=== PATIENT | female | born 1950 | race Caucasian/White ===

== ENCOUNTER 2018-12-15 10:05 | Outpatient (CLI) | payer MEDICARE, SELFPAY ==
[2018-12-15 12:01] LABS: ALT 35 U/L (12-78); AST 24 U/L (15-37); Anion Gap 8.8 mmol/L (3-11); BUN 18 mg/dL (7-18); CO2 29.2 mmol/L (21.0-32.0); CREATININE 0.92 mg/dL (0.55-1.02); Calcium 9.5 mg/dL (8.5-10.1); Chloride 102 mmol/L (98-107); Cholesterol 176 mg/dL (50-200); Glucose 100 mg/dL (70-100); HDL Cholesterol 45 mg/dL (40-60); LDL CHOLESTEROL 106 mg/dL (<100); Potassium 4.7 mmol/L (3.5-5.1); Sodium 140 mmol/L (136-145); Triglyceride 138 mg/dL (30-150)
[2018-12-15 12:15] LABS: Creatine Kinase 37 U/L (26-192)
== END 2018-12-15 10:25 ==
PROVIDERS: PCP Nurse Practitioner Family; Visit Provider Nurse Practitioner Family
DX: E78.5 Hyperlipidemia, unspecified (principal); R73.01 Impaired fasting glucose; I48.0 Paroxysmal atrial fibrillation
CPT/HCPCS: 36415; 80048; 80061; 82550; 83721; 84450; 84460

== ENCOUNTER 2018-12-31 00:44 | Outpatient (CLI) | payer MEDICARE, SELFPAY ==
--- NOTE | 2018-12-31 13:08 | DI.DEXA_ITS ---
SYMPTOMS/DIAGNOSIS: OSTEOPOROSIS, M81.0 DEXA SCAN: DEXA scan was performed according to the usual protocol. The findings for left hip scanning are T score -1.7 with left femoral neck T score -2.9. The previous examination of 07/07 showed left hip T score -1.7. The lumbar spine scanning shows T score -3.0. Previous examination of 07/07 showed lumbar spine T score -2.9. The left forearm scanning shows T score -3.0. CONCLUSION: Findings consistent with osteoporosis according to the WHO criteria. Please note that the lateral vertebral scanogram shows no evidence of a vertebral compression fracture.
== END 2018-12-31 01:04 ==
PROVIDERS: PCP Nurse Practitioner Family; Visit Provider Nurse Practitioner Family
DX: M81.0 Age-related osteoporosis without current pathological fracture (principal)
CPT/HCPCS: 77080

== ENCOUNTER 2020-03-17 12:00 | Outpatient (CLI) | payer MEDICARE, MEDICAID, SELFPAY ==
--- NOTE | 2020-03-17 | DI.RAD_ITS ---
CLINICAL HISTORY: INJURY, FELL ON 03/11, T14.90xA, ? FX. COMPARISON: CHEST 2 VIEWS PA,LAT from 10/22/2013 FINDINGS: LUNGS: Clear. No pneumothorax is seen. Heart size is normal. BONES: A marker was placed over the left lower ribs in the area of the patient's pain. No displaced rib fracture is seen. No bony destructive lesion is seen. No thoracic compression fracture is seen. IMPRESSION: Negative chest and left ribs.
--- NOTE | 2020-03-17 13:00 | DI.RAD_ITS ---
EXAM: XR TIB/FIB RT CLINICAL HISTORY: INJURY, T14.90xA, FELL ON 03/11, ? FX. TECHNIQUE: 2D digital imaging was performed. COMPARISON: No exams were available for comparison FINDINGS: BONES: No acute fracture is present. No bony destructive lesion is seen. Visualized portion of knee a nd ankle joints are unremarkable. SOFT TISSUE: Normal. IMPRESSION: Unremarkable radiographs of the right tibia and fibula. DATA REPOSITORY: RADIATION DOSE DELIVERED:
== END 2020-03-17 12:20 ==
PROVIDERS: PCP Nurse Practitioner Family; Visit Provider Family Medicine
DX: M79.661 Pain in right lower leg (principal); S89.81XA Other specified injuries of right lower leg, initial encounter; Z91.81 History of falling; R07.89 Other chest pain; R07.81 Pleurodynia
CPT/HCPCS: 71046; 71100; 73590

== ENCOUNTER 2020-06-07 08:56 | Outpatient (REF) | payer MEDICARE, SELFPAY ==
[2020-06-07 21:32] LABS: Anion Gap 11.4 mmol/L (3-11); BUN 16 mg/dL (7-18); CO2 24.6 mmol/L (21.0-32.0); CREATININE 0.72 mg/dL (0.55-1.02); Calcium 9.1 mg/dL (8.5-10.1); Calculated LDL 114 mg/dL (<100); Chloride 107 mmol/L (98-107); Cholesterol 178 mg/dL (<200); Glucose 116 mg/dL (74-106); HDL Cholesterol 40 mg/dL (40-60); Potassium 4.6 mmol/L (3.5-5.1); Sodium 143 mmol/L (136-145); Triglyceride 123 mg/dL (<150)
== END 2020-06-07 09:16 ==
LOC: NCHCN 08:56
PROVIDERS: PCP Nurse Practitioner Family; Visit Provider Nurse Practitioner Family
DX: R73.03 Prediabetes (principal); E78.5 Hyperlipidemia, unspecified; E66.9 Obesity, unspecified
CPT/HCPCS: 80048; 80061

== ENCOUNTER 2020-08-02 15:02 | Outpatient (REF) | payer MEDICARE, SELFPAY, MEDICAID ==
[2020-08-02 21:40] LABS: HGB 14.4 g/dL (11.2-15.7); MCH 28.7 pg (27.0-33.0); MCV 89.8 fL (80-95); MPV 11.5 fL (8.0-11.0); Platelet Count 287 10^3/uL (130-400); RBC 5.01 10^6/uL (3.93-5.22); RDW 12.4 % (11.7-14.6); RDW-SD 40.5 fL
[2020-08-02 21:50] LABS: TSH (W/Ref FT4) 0.82 uIU/mL (0.36-3.74)
== END 2020-08-02 15:22 ==
LOC: NCHCN 15:02
PROVIDERS: PCP Nurse Practitioner Family; Visit Provider Nurse Practitioner Family
DX: E78.5 Hyperlipidemia, unspecified (principal); R73.03 Prediabetes; I48.0 Paroxysmal atrial fibrillation; R06.83 Snoring; E66.9 Obesity, unspecified
CPT/HCPCS: 85027; 84443

== ENCOUNTER 2020-08-21 03:04 | Outpatient (CLI) | payer MEDICARE, MEDICAID, SELFPAY ==
[2020-08-21 10:43] LABS: ALT 40 U/L (14-59); AST 32 U/L (15-37); Albumin 3.6 g/dL (3.4-5.0); Alkaline Phosphatase 120 U/L (46-116); Anion Gap 7.4 mmol/L (3-11); BUN 15 mg/dL (7-18); Bilirubin, Total 0.6 mg/dL (0.2-1.0); C-Reactive Protein 0.86 mg/dL (0.0-0.3); CO2 27.6 mmol/L (21.0-32.0); CREATININE 0.85 mg/dL (0.55-1.02); Chloride 103 mmol/L (98-107); PHOSPHORUS 3.7 mg/dL (2.6-4.7); Potassium 4.2 mmol/L (3.5-5.1); Sodium 138 mmol/L (136-145); Total Protein 7.3 g/dL (6.4-8.2)
[2020-08-21 11:07] LABS: Glucose 110 mg/dL (74-106)
[2020-08-21 11:18] LABS: ESR 16 mm/hr (0-30)
[2020-08-21 11:49] LABS: Vitamin D 25 Total 28.2 ng/ml (30-100)
[2020-08-21 12:57] LABS: GTT Comment See Comments
[2020-08-22 09:40] LABS: Parathyroid Hormone,Intact 45 pg/mL (19-88)
[2020-08-23 10:15] LABS: Beta-CrossLaps (B-CTx) 504 pg/mL
== END 2020-08-21 03:24 ==
PROVIDERS: PCP Nurse Practitioner Family; Visit Provider Internal Medicine Endocrinology, Diabetes & Metabolism
DX: M81.0 Age-related osteoporosis without current pathological fracture (principal); R73.03 Prediabetes
CPT/HCPCS: 36410; 80053; 82306; 82523; 82533; 85652; 82951; 83036; 83970; 84100; 86140

== ENCOUNTER 2020-10-11 02:04 | Outpatient (CLI) | payer MEDICARE, MEDICAID, SELFPAY ==
[2020-10-11 12:14] LABS: Ferritin 140 ng/mL (8-252)
== END 2020-10-11 02:24 ==
PROVIDERS: PCP Nurse Practitioner Family; Visit Provider Nurse Practitioner
DX: M25.561 Pain in right knee (principal)
CPT/HCPCS: 36415; 82728

== ENCOUNTER 2021-01-01 17:02 | Outpatient (REF) | payer MEDICARE, MEDICAID, SELFPAY ==
[2021-01-01 19:36] LABS: HCT 43.8 % (36.0-46.0); HGB 14.5 g/dL (11.2-15.7); MCH 29.7 pg (27.0-33.0); MCHC 33.1 % (32.0-36.0); MCV 89.8 fL (80-95); Platelet Count 293 10^3/uL (130-400); RBC 4.88 10^6/uL (3.93-5.22); RDW 12.2 % (11.7-14.6); RDW-SD 40.3 fL; WBC 10.81 10^3/uL (4.4-10.8)
[2021-01-01 20:22] LABS: Anion Gap 9.6 mmol/L (3-11); BUN 13 mg/dL (7-18); CO2 27.4 mmol/L (21.0-32.0); CREATININE 0.8 mg/dL (0.55-1.02); Calcium 9.5 mg/dL (8.5-10.1); Chloride 104 mmol/L (98-107); Glucose 106 mg/dL (74-106); Potassium 4.1 mmol/L (3.5-5.1); Sodium 141 mmol/L (136-145)
== END 2021-01-01 17:03 | disposition home or self-care (01) ==
LOC: NCHCN 17:02
PROVIDERS: PCP Nurse Practitioner Family; Visit Provider Nurse Practitioner Family
DX: M81.0 Age-related osteoporosis without current pathological fracture (principal); K21.9 Gastro-esophageal reflux disease without esophagitis; I48.0 Paroxysmal atrial fibrillation
CPT/HCPCS: 80048; 82306; 85027

== ENCOUNTER 2021-01-05 10:22 | Outpatient (CLI) | payer MEDICARE, MEDICAID, SELFPAY ==
[2021-01-06 11:49] LABS: COVID-19 RT-PCR UVMMC Result Negative (Negative)
== END 2021-01-05 10:23 | disposition home or self-care (01) ==
PROVIDERS: PCP Nurse Practitioner Family; Visit Provider Nurse Practitioner
DX: Z20.822 Contact with and (suspected) exposure to COVID-19 (principal); Z01.818 Encounter for other preprocedural examination
CPT/HCPCS: U0003; U0005

== ENCOUNTER 2021-01-11 00:48 | Outpatient (CLI) | payer MEDICARE, MEDICAID, SELFPAY ==
--- NOTE | 2021-01-11 08:45 | DI.NM_ITS ---
APPROVED REPORT Exam: Exercise Treadmill Patient Location: Out-Patient Room/Bed: Stress Nurse: Michelle Farmer RN Ordering Provider:NADIRA MENDOZA, Contact Number: [phone] BMI: 37.78 Baseline Rhythm: Sinus Rhythm Indications: Chest pain, associated with SOB while shoveling, h/o AFIB, on anticoag Medical History Medical History: AFib, Hyperlipidemia, asthma, obesity, smoker (former), prediabetes, COPD, vertigo Cardiac Medications: Diltiazem, eliquis, lovastatin Allergies: Metals Cardiac Risk Factors: AFib, Hyperlipidemia, asthma, obesity, prediabetes, smoker (former), COPD, fami ly hx Previous Cardiac Procedures: None Pretest Chest Pain Characteristics: None Exercise History: Sedentary Physical Disabilities: None Lung Sounds: Clear to auscultation Heart Sounds: Regular Stress Test Details Test: Exercise stress testing was performed using a Maxi protocol. Nuclear Acquisition: Rest Tc-99m/Stress Tc-99m 1 day Rest Isotope: Tc-99m Sestamibi. Dose: 11.5 Date: 01/11/2021 Injection Time: 0900 Stress Isotope: Tc-99m Sestamibi. Dose: 37.0 Date: 01/11/2021 Injection Time: 1025 HR Resting HR Supine: 74 bpm Max Heart Rate (APMHR): 152 bpm Resting HR Standin bpm Target HR (85% APMHR): 129 bpm Max HR Achieved: 143 bpm % of APMHR: 94 Recovery HR: 96 bpm HR response to stress: Normal HR response to stress BP Resting BP Supine: 140/90 mmHg Resting BP Standin/92 mmHg Max BP: 176/72 mmHg Recovery BP: 142/80 mmHg BP response to stress: Normal blood pressure response to stress. ECG Resting ECG: Sinus Rhythm Ectopy: None Stress ECG: Sinus Tachycardia ST Change: No significant ST segment changes noted Arrhythmia: PVC Recovery ECG: Sinus Rhythm Recovery ST Change: No significant ST segment changes noted Recovery Arrhythmia: Occasional PACs Clinical Reason for Termination: Dyspnea, Fatigue Stress Symptoms: Dyspnea, General Fatigue Exercise duration: 6 min14 sec Highest Stage Reached: Stage 3: 3.4 mph at 14% grade. Exercise capacity: 7.11 METs Rate Pressure Product: 32518 Stress ECG Conclusion 1. The patient exercised for 6 minutes (7 METS). Exercise was stopped due to fatigue. 2. The patient had no symptoms suggestive of ischemia during exercise. 3. There was no evidence of ischemia on ECG portion of the exam. MPI Conclusion Ejection fraction could not be calculated due to software issues. There was no evidence of ischemia on the imaging portion of the exam. Rotation of the study is affected by gating issues, this likely represents a normal SPECT stress test .
== END 2021-01-11 00:49 ==
PROVIDERS: PCP Nurse Practitioner Family; Visit Provider Nurse Practitioner Family
DX: R07.9 Chest pain, unspecified (principal); R06.02 Shortness of breath; I48.91 Unspecified atrial fibrillation; Z79.01 Long term (current) use of anticoagulants; E78.5 Hyperlipidemia, unspecified; R73.03 Prediabetes; Z87.891 Personal history of nicotine dependence
CPT/HCPCS: 78452; 93016; 93018; 93017

== ENCOUNTER → 2021-01-15 12:13 | Outpatient (BNVA) | payer MEDICARE, MEDICAID, SELFPAY | PROVIDERS: PCP Nurse Practitioner Family; Referring Provider Nurse Practitioner Family; Visit Provider Psychiatry & Neurology Neurology | DX: F45.8 Other somatoform disorders (principal) | CPT/HCPCS: 99203 ==

== ENCOUNTER → 2021-01-18 13:28 | Outpatient (BNVA) | payer MEDICARE, MEDICAID, SELFPAY | PROVIDERS: PCP Nurse Practitioner Family; Referring Provider Nurse Practitioner Family; Visit Provider Physical Therapy Assistant | DX: Z12.11 Encounter for screening for malignant neoplasm of colon (principal) ==

== ENCOUNTER 2021-01-29 11:12 | Day surgery (SDC) | payer MEDICARE, MEDICAID, SELFPAY ==
--- NOTE | 2021-01-29 06:43 | W.COLOREPORT ---
Date of service: 01/29/21 Time of Service: 12:37 Colonoscopy Report Date of procedure: 01/29/21 Pre-op diagnosis general: Colon Cancer Screening Post-op diagnosis procedure note: other (polyp, mild diverticulosis) Procedure: Colonoscopy with polypectomy Surgeon: Devi Alegria Anesthesia proc note operative: other (General/ASA 2/Lana Caldwell, PINEDA) Estimated blood loss (mL): 3 Pathology: other (Ascending polyp) Complications: None Disposition: same day Indications: The patient is here for Colonoscopy pre-op. Her last screening was in 2009 and was unremarkable. She has no family history of colon cancer. She has not had any bowel habit changes , however has noted rare, intermittent blood per rectum. -Discussed colonoscopy bowel prep as well as the procedure. Discussed possible complications of the procedure to include bleeding, pain, perforation, missed small lesion/polyp, sore throat, aspiration and adverse reaction to the medications. Questions were answered to patient?s satisfaction. No guarantees were implied or given. Prep: Miralax/Dulcolax Procedure Start Time: 12:37 Procedure End Time: 13:02 Retraction Time: 15 minutes Findings: One small polyp and mild diverticulosis of the ascending polyp Procedure Description: After informed consent was obtained the patient was taken to the procedure room and placed in a left decubitous position. Monitors were applied and a time out was done. The patients name, date of , procedure, allergies to medications and metal in their body was reviewed. The patient was then sedated. Once sedated and comfortable a rectal exam was done. External exam was normal. Internal exam revealed a normal sphincter tone and no palpable masses. The scope was then introduced and retro-flexed. Grade 1 internal hemorrhoids were identified. There were no polyps or masses identified on retro-flexion. The scope was then advanced to the cecum without difficulty. The ileocecal vlave and appendiceal orifice were identified. The prep was goof. The scope was then slowly retracted over 15 minutes back into the rectum. Polyps were removed with cold forceps in the ascending colon. There was mild diverticulosis noted in the sigmoid colon. The scope was removed and the patient was woken up and taken back to Same day surgery in stable condition. The patient tolerated the procedure well and there were no immediate complications. Follow up: The patient should follow up in 5 years unless they develop changes in bowel habits or other new gastrointestinal complaints.
--- NOTE | 2021-01-29 06:44 | W.PM.DSUDISC ---
Discharge Plan Disposition Patient Disposition: HOME Condition: Good Discharge Details Reason For Visit: Colonoscopy Attending Provider: Devi Alegria Primary Care Provider: Dorita Zimmerman Home Meds and New Rx's Prescriptions: Continued DILTIAZEM ER 360 MG TAB.ER.24H 360 mg PO DAILY Qty: 90 RF: 4 Eliquis 5 mg tablet 5 mg PO BID Qty: 180 RF: 3 albuterol sulfate [ProAir HFA] 90 mcg/actuation HFA aerosol inhaler 2 puff inhalation Q6H PRNRF: 0 cholecalciferol (vitamin D3) 25 mcg (1,000 unit) capsule 25 mcg PO DAILY RF: 0 lovastatin 40 mg tablet 40 mg PO DAILY RF: 0 meclizine 25 mg tablet 25 mg PO TID PRNRF: 0 Discontinued polyethylene glycol 3350 17 gram/dose powder 238 g PO ONCE Qty: 238 RF: 0 bisacodyl [Dulcolax (bisacodyl)] 5 mg tablet,delayed release (DR/EC) 5 mg PO ONCE Qty: 4 RF: 0 Discharge Instructions Instructions: Diverticulosis (DC) Additional Instructions: Findings: one small polyp mild diverticulosis Follow up: 5 years Please call if you develop: fevers >101.5 Nausea or Vomiting Abdominal pain that is not transient DAY SURGERY UNIT POST ENDOSCOPY INSTRUCTIONS 1. Because there will be medication in your system for the next 24 hours, you may feel a little sleepy. Your coordination will be affected. Therefore: a. Do not drive or operate dangerous equipment for 24 hours. b. Do not drink alcohol beverages for 24 hours (not even beer). c. Plan to go home and rest for the day. 2. Generally there are no restrictions on your activity after a day or so has gone by, but you may feel a bit fatigued for a few days. 3 After you arrive home you may have a light meal and return to a normal diet as you can tolerate it without feeling sick to your stomach. 4. After surgery, you may feel pain or discomfort. This should be only transient, but if it persists please contact your doctor. 5. If there are any questions regarding the findings of your procedure, please feel free to contact your doctor. 6. If you are unable to contact your doctor with a problem, contact the hospital at [phone]. 7. Continue all your regular medications unless directed otherwise. I understand the above instructions and have no questions. Signature of Patient or Responsible Adult Escort Date/Time Name of Responsible Adult Escort Signature of Nurse Date/Time Activity:: Activity as Tolerated Diet:: High Fiber Discharge Orders Discharge Orders: Discharge Order (Routine); Ordered 01/29/21 Ordered By: Devi Alegria
[2021-01-29 11:15] VITALS: BP 136/83; PULSE 87; RESP 19; TEMP 36.6; O2SAT 93
[2021-01-29] MEDS: Lactated Ringers 1,000 ML 80 ML IV (11:45)
--- NOTE | 2021-01-29 12:51 | BOWEL_PTH ---
PATIENT: Lucero Arthur LOC: [facility] U#:[id number] AGE/SX: 70/F ROOM: RE01/29/[address]: Devi Alegria MD : 1950 BED: DIS: 01/29/2021 SPEC #: [id number] RECD: 01/29/21 17:18 STATUS: FAIZAN REQ #: [id number] BREE: 01/29/21 12:[address]: Devi Alegria DEPT: Surgical Specimen RECD BY: Klaudia Kwan ENTERED: 01/29/21 17:18 SP TYPE: Bowel OTHR DR: Dorita Zimmerman Tissues: 1 - BIOPSY BOWEL Procedures: GROSS AND MICRO LEVEL 4 Comments: [id number]
[2021-01-29 13:40] VITALS: BP 132/64; PULSE 75; RESP 18; TEMP 36.6; O2SAT 95
== END 2021-01-29 14:04 | disposition home or self-care (01) ==
LOC: SUR 11:12
PROVIDERS: PCP Nurse Practitioner Family; Visit Provider Surgery
PROC: 0DJD8ZZ Inspection of Lower Intestinal Tract, Via Natural or Artificial Opening Endoscopic (ICD-10-PCS; CPT 45378; principal; 2021-01-29 11:30)
DX: Z12.11 Encounter for screening for malignant neoplasm of colon (principal); D12.2 Benign neoplasm of ascending colon; K57.30 Diverticulosis of large intestine without perforation or abscess without bleeding
CPT/HCPCS: 45380; 88305; J2001

== ENCOUNTER 2021-02-15 10:53 | Emergency (ER) | payer MEDICARE, MEDICAID, SELFPAY ==
[2021-02-15] VITALS (17 sets, daily range): BP systolic 110–125; BP diastolic 47–55; PULSE 50–62; RESP 16–22; TEMP 36.6–36.8; O2SAT 94–97
--- NOTE | 2021-02-15 10:45 | RT.EKG_ITS ---
APPROVED REPORT Exam: Resting ECG Patient Location: E HR:58 bpm ECG Measurements Heart Rate 58 AXIS HI 177 P 46 QRSd 71 QRS -22 QT 398 T 48 QTc 393 Conclusion Sinus bradycardia...rate< 60 Low voltage, precordial leads...precordial leads <1.0mV non-diagnostic EKG I have reviewed and interpreted ECG and agree with software generated interpretation.
--- NOTE | 2021-02-15 11:00 | DI.RAD_ITS ---
EXAM: XR PORTABLE CHEST AP CLINICAL HISTORY: afib. TECHNIQUE: 2D digital imaging was performed. COMPARISON: CR XR RIBS LT W PA LAT CHEST from 03/17/2020 FINDINGS: Heart size is normal. The mediastinum is not widened. Lungs are clear. No infiltrates nor obvious pleural effusions. Chest leads in place. IMPRESSION: No acute pulmonary findings on this single AP portable view of the chest.No significant change compar ed to February 2020. DATA REPOSITORY: RADIATION DOSE DELIVERED: All CT scans at this facility use at least one of these dose optimization techniques: automated exposure control; mA and/or kV adjustment per patient size (includes targeted e xams where dose is matched to clinical indication); or iterative reconstruction.
--- OUTSIDE RECORDS SUMMARY | 2021-02-15 11:06 | XMS_ITS ---
:1950 Author Care Team Providers Name Role Phone NADIRA MENDOZA APRN Primary Care Provider [phone] Allergies Code Code System Name Reaction Severity Status Onset Contact Metal ? ? Active ? Agent Sulfa ? ? Active ? (Sulfonamide Antibiotics) Medications Name Status Start Date Stop Date ? ? calcium Active ? Not available diltiazem CD 360 mg capsule,extended release 24 hr Active ? Not available Take 1 capsule every day by oral route. Eliquis 5 mg tablet Active ? Not availabl e Take 1 tablet twice a day by oral route. fluticasone propionate 50 mcg/actuation nasal spray,suspension A ctive ? Not available Use two sprays each nostril QHS lovastatin 20 mg tablet Active ? Not avai lable Take 2 tablets every day by oral route. meclizine 25 mg tablet Active ? Not avail able Take 1 tablet 3 times a day by oral route. Proair Digihaler 90 mcg/actuation aerosol powder breath act, sen sor Active ? Not available Inhale 2 puffs every 4 hours by inhalation route. Vitamin D Active ? Not available zolpidem 5 mg tablet Active ? Not availab le take 1 PO night of sleep study if needed Problems Name Status Onset Date Source ? Hyperlipidemia Active 09/14/2020 ? Obesity Active 09/14/2020 ? Atrial Fibrillation Active 09/14/2020 ? Gastroesophageal Reflux Disease Active 09/14/2020 ? Diverticular Disease Active 09/14/2020 ? Atrophic Vaginitis Active 09/14/2020 ? Eczema Active 09/14/2020 ? Psoriasis Active 09/14/2020 ? Low Back Pain Active 09/14/2020 ? Osteoporosis Active 09/14/2020 ? Vertigo Active 09/14/2020 ? Snoring Active 09/14/2020 ? Prediabetes Active 09/14/2020 ? Abnormal Findings on Diagnostic Imaging of Active 09/14 ? Breast Nitrazine Yellow Test for Detection of Active 0 ? Rupture of Amniotic Membrane Positive Ex-smoker Active 09/14/2020 ? Insomnia Active 10/03/2020 ? Restless Legs Active 10/03/2020 ? Chronic Rhinitis Active 10/03/2020 ? Obstructive Sleep Apnea Syndrome Active ? ? Procedures None recorded. Results Lab Results None recorded. Past Encounters 02/15/2021 Obstructive Sleep Apnea Syndrome; Restle ss Legs; Atrial Fibrillation Cyndi Easley IN STORE MARKETER: [address] [place] [phone], Ph. 11/30/2020 Obstructive Sleep Apnea Syndrome; Chroni c Rhinitis Cyndi Easley IN STORE MARKETER: [address] [place] [phone], Ph. 10/03/2020 Snoring; Insomnia; Restless Legs; Chroni c Rhinitis; Pain in Right Knee Cyndi Easley IN STORE MARKETER: [address] [place] [phone], Ph. Social History Tobacco Smoking Status Former Smoker Notes: quite 2 008 Vaccine List None recorded. Plan of Care Reminders Provider Appointments None ? ? recorded. Lab None ? ? recorded. Referral None ? ? recorded. Procedures None ? ? recorded. Surgeries None ? ? recorded. Imaging None ? ? recorded. Vitals 02/15/2021 10:30AM Office 30 Height Weight BMI Blood Pressure 149.86 cm 95.25 kg 42.4 kg/m2 155/68 mm[Hg] 11/30/2020 09:30AM Office 30 Height Weight BMI Blood Pressure 149.86 cm 90.72 kg 40.4 kg/m2 122/70 mm[Hg] 10/03/2020 12:30PM New Patient 45 Height Weight BMI Blood Pressure 149.86 cm 90.9 kg 40.5 kg/m2 120/80 mm[Hg]
--- OUTSIDE RECORDS SUMMARY | 2021-02-15 11:06 | XMS_ITS | Encounter Summary ---
:1950 Author Care Team Providers Name Role Phone Dorita Zimmerman RICHARD Primary Care Provider [phone] Reason for Visit None recorded. Assessment and Plan 1. Obstructive sleep apnea syndr ome CHRISTOPHER with an AHI of 41.1/hr. Brandie palacio recently started on CPAP 8-18 cm. She has excellent compliance and reduction in AHI. She has significant improvement in sleep quality, nocturia and daytime somn olence and continued use of CPAP is fela mmended. Her titration recommended CPAP 6-12 cm and there was no residual hypoxemia noted on CPAP. Given she is doing well on current pressure settings, I am not making any changes today. She is encoura ged to keep up with the routine maintenance of the machine and to clean and replace parts as indicated. Drowsy driving precautions were reviewed. I provided greater than 30 minutes in e care of this patient, more than half the time was spent in [id number] counseling. 2. Restless legs These have resolved since star ting CPAP. 3. Atrial fibrillation She is having chest discomfort and feeling dyspneic and dizzy since waking up today. [facility]. I recommended she go to the ER fo r an evaluation. 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 Discussion Note: None recorded.Patient educational handouts: No information available. Plan of Care Reminders Provider Appointments Office 08/21/2021 Florencio Easley, 2:00PM SECURITY SYSTEM ADMINISTRATOR Lab None ? ? recorded. Referral None ? ? recorded. Procedures None ? ? recorded. Surgeries None ? ? recorded. Imaging None ? ? recorded. Medications Name Start Date ? ? calcium ? diltiazem CD 360 mg capsule,extended release 24 hr ? Take 1 capsule every day by oral route. Eliquis 5 mg tablet ? Take 1 tablet twice a day by oral route. fluticasone propionate 50 mcg/actuation nasal spray,sibley spension ? Use two sprays each nostril QHS lovastatin 20 mg tablet ? Take 2 tablets every day by oral route. meclizine 25 mg tablet ? Take 1 tablet 3 times a day by oral route. Proair Digihaler 90 mcg/actuation aerosol powder breat h act, sensor ? Inhale 2 puffs every 4 hours by inhalation route. Vitamin D ? zolpidem 5 mg tablet ? take 1 PO night of sleep study if needed Medications Administered None recorded. Vitals Height Weight BMI Blood Pressure 4 ft 11 in 210 lbs 42.4 kg/m2 155/68 mm[Hg] Results Lab Results None recorded. Allergies Code Code System Name Reaction Severity Onset Contact Metal ? ? ? Agent Sulfa ? ? ? (Sulfonamide Antibiotics) Problems Name Status Onset Date Source ? [...] Syndrome Active ? ? Procedures None recorded. Vaccine List None recorded. Social History Tobacco Smoking Status Former Smoker Notes: quite 2 008 Alcohol intake None Notes: quite 15 y ears ago Live alone or with others? with others Animal exposure? Y Notes: 3 cats Caffeine intake Occasional Notes: 2 cups of coffee a day Functional Status Unknown. Past Encounters 02/15/2021 Obstructive Sleep Apnea Syndrome; Restle ss Legs; Atrial Fibrillation Cyndi Easley SECURITY SYSTEM ADMINISTRATOR: [address] [place] [phone], Ph. History of Present Illness Note: <p>[facility] has a visit for CHRISTOPHER follow-up. She checked in 12 minutes late for her ap pointment.</p><p>
</p><p>Lucero was seen by me on 11/30/20. She has a medical history to include PAF, HLD, GERD, obesity, psoriasis, diverticular disease, pre-DM, vertigo and osteoporosis. Labs 08/21/20 CRP 0.86, CMP glucose 110, alk phos 120. 08/03/20 CBC WBC 11. She noted symptoms of loud snoring, witnessed apneas, nocturnal gasping, frequent nocturnal heartburn, nocturia, sleep fragmentation, and daytime sleepiness (ESS 10).</p><p>Polysomnogram was completed on {{DATE 10/28/2020}} (BMI 40.39) . Sleep efficiency was {{63# 80}}%, AHI {{41.4# NUMBER}}/hr, RDI {{55.7# NUMBER}}/hr, REM AHI {{61.1# NUMBER}}/hr, REM RDI {{63.2# NUMBER}}/hr, supine AHI {{69# NUMBER}}/hr, right lateral AHI {{15# NUMBER}}/hr, left lateral AHI {{56# NUMBER}}/hr, sp02 satya {{67# NUMBER}}%, {{22# NUMBER}} minutes were spent at a saturation <88%, arousal index {{52# NUMBER}}/hr, PLMi {{3.3# NUMBER}}/hr, PLM arousal index {{1# NUMBER}}/hr. EKG showed {{NSR*}}. She took Ambien 5 mg for the study. Last visit I ordered CPAP 8-18 cm and a titration.</p><p>Titration01/10/21 (BMI 40.39), sleep efficiency 54%, CPAP titrated from 8 to 11 cm, CPAP 8 cm was successful in supine but NOT supine REM sleep, arousal index 24/hr, PLMi 25.3/hr, PLMai 7.2/hr. She was awake from 10:50 pm to 2:28 am. CPAP 6-12 cm recommended.</p><p>
</p><p>Lucero tells me things are going very good with her CPAP. She is using a nasal mask and tolerates it well. She has been sleeping longer and more soundly since starting on CPAP. She is feeling much rested during the day since starting CPAP. and urinates much less at night (now 0-1/night). The air pressurefeels perfect.</p><p>She says she has not even been bothered by her RLS since startingCPAP, they seem to be gone.</p><p>She says she is in a-fib now and feeling short of breath due to this. She said she has not been taking her diltiazem because she forgot to take it a couple of nights ago.</p><p>
</p><p>ESS today 06/16</p><p>
</p><p>COMPLIANCE REVIEW: {{01/15/21-02/13/21# DATES}}, Used {{29# 25 30}}/30 days, average use {{6# 5 6}} hours {{23# number}} minutes a night, mean pressure {{9.2# 8 9}}cm, 90 th percentile pressure {{11.1# 9 10}}cm, time in large air leak {{0# 5 10}} minutes, AHI {{1.4# 1 2}}/hour.</p>Review of Systems: ROS as noted in the HPI Review of Systems ? Notes: <p>dyspnea (she feels this w ay when in a-fib)</p> Physical Exam ? Notes: <p>General: A&O, well groome d {{over weight obese * morbidly obese normal weight thin}}.
HEAD: no rmocephalic & atraumatic.
EYES: non icteric.
LUNGS: CTA all f ields. Good air movement.
CARDIO: RRR without murmur, gallop or thrill.
NEURO: A&O. Normal gait.
PSYCH: Normal mood and affect.
CUTANEOUS: no overt lesions or rashes</p>
--- OUTSIDE RECORDS SUMMARY | 2021-02-15 11:06 | XMS_ITS | Encounter Summary ---
:1950 Author Care Team Providers Name Role Phone Dorita Zimmerman APRN Primary Care Provider [phone] Reason for Visit None recorded. Assessment and Plan 1. Obstructive sleep apnea syndr ome CHRISTOPHER with an AHI of 41.1/hr. Sh e had marginal hypoxemia between scored events. I discussed treatment options to include oral appliance, ENT surgery and CPAP therapy and the advantages and disad vantages of each. CPAP is the recommende d treatment given the severity of her CHRISTOPHER. CPAP 8-18cm is ordered. I discussed different mask options and the importance of finding the mask that will work for he r within the first 30 days. I discussed how to adjust humidity for dryness/congestion and that the goal will be to use nightly for her total sleep time. I covered insurance compliance requirements and [facility]'s mask exchange policy. She will have a titration study for fine tuning of therapy and to ensure adequate oxygenation on CPAP therapy. She is made aware she will need a Covid test prior to her st udy. She declined Ambien for the second study because she did not find it helpful for the PSG. I will see her back between 31-90 days after starting CPAP and she is encouraged to call me sooner if she i s having any difficulties tolerating CPA P. Drowsy driving precautions were reviewed. I provided greater than 30 minutes in e care of this patient, more than half the time was spent in [id number] counseling. ? CPAP machine ? CPAP titration study ? SARS CoV 2 RNA (COVID-19), QL, wax coating machine tender-PCR, respiratory specimen 2. Chronic rhinitis Lucero tells me that the Allyn abbott onase has been a miracle, she no longer has chronic sneezing and runny nose. She is very pleased with the results. Discussion Note: None recorded.Patient educational handouts: No information available. Plan of Care Reminders Provider Appointments Office 30 Florencio Easley NP 08/21/2021 2:00PM Lab SARS CoV 2 RNA [facility] (COVID-19), QL, wax coating machine tender-PCR, 11/30/2020 Respiratory Specimen Referral None recorded. ? ? Procedures None recorded. ? ? Surgeries None recorded. ? ? Imaging None recorded. ? ? Medications Name Start Date ? ? calcium [...] BMI Blood Pressure 4 ft 11 in 200 lbs 40.4 kg/m2 122/70 mm[Hg] Results Lab Results None recorded. Allergies [...] a day Functional Status Unknown. Past Encounters 11/30/2020 Obstructive Sleep Apnea Syndrome; Chroni c Rhinitis Cyndi Easley, COBOL APPLICATION DEVELOPER: [address] [place] [phone], Ph. History of Present Illness Note: <p>Lucero Doshi has a visit for PSG results.</p><p>
</p><p>Lucero was seen by me on 10/03/20. She has a medical history to include PAF, HLD, GERD, obesity, psoriasis, diverticular disease, pre-DM, vertigo and osteoporosis. Labs 08/21/20 CRP 0.86, CMP glucose 110, alk phos 120. 08/03/20 CBC WBC 11. She noted symptoms of loud snoring, witnessed apneas, nocturnal gasping, frequent nocturnal heartburn, nocturia, sleep fragmentation, and daytime sleepiness (ESS 10).</p><p>Polysomnogram was completed on {{DATE 10/28/2020}} (BMI 40.39) and I reviewed the results with {{him her*}} in detail today. Sleep efficiency was {{63# 80}}%, AHI {{41.4# [...] She took Ambien 5 mg for the study.</p><p>
</p><p>Lucero tells me she still has all above symptoms and no new sleep complaints today. She says her sleep the night of the study was similar when compared to a typical night at home.</p><p>Lucero tells me that the Flonase has been a miracle, she no longer has chronic sneezing and runny nose.</p>Review of Systems: ROS as noted in the HPI Review of Systems None recorded. Physical Exam ? Notes: <p>General: A&O, well groome d {{over weight obese * morbidly obese normal weight thin}}.
HEAD: no rmocephalic & atraumatic.
EYES: non icteric.
LUNGS: CTA all f ields. Good air movement.
CARDIO: RRR without murmur, gallop or thrill.
NEURO: A&O. Normal gait.
PSYCH: Normal mood and affect.
CUTANEOUS: no overt lesions or rashes</p>
--- OUTSIDE RECORDS SUMMARY | 2021-02-15 11:06 | XMS_ITS ---
:1950 Author Care Team Providers Name Role Phone NADIRA MENDOZA Primary Care Provider [phone] NADIRA MENDOZA Referring Provider [phone] Allergies Code Code System Name Reaction Severity Status Onset 4850 RxNorm Glucose Nausea Mild to Active 07/31/2020 Moderate Sulfa ? ? Active ? (Sulfonamide Antibiotics) Notes: Metals Medications Name Status Start Date Stop Date ? ? alendronate 70 mg tablet Active ? Not aziza ilable Take 1 tablet every week by oral route for 28 days. Calcium 600 Active ? Not available Take one daily. Cardizem CD 360 mg capsule,extended release Active ? Not available Take 1 capsule every day by oral route. cholecalciferol (vitamin D3) 25 mcg (1,000 unit) tablet Active ? Not available Take 1 tablet every day by oral route. Eliquis 5 mg tablet Active ? Not availabl e Take 1 tablet twice a day by oral route. lovastatin 20 mg tablet Active ? Not avai lable Take 1 tablet every day by oral route at bedtime. meclizine 25 mg tablet Active ? Not avail able Take 1 tablet every 6 hours by oral route as needed. ProAir HFA 90 mcg/actuation aerosol inhaler Active ? Not available Inhale 2 puffs every 6 hours by inhalation route as needed. Problems Name Status Onset Date Source ? Hyperlipidemia Active ? ? Dyslipidemia Active ? ? Obesity Active ? ? Paroxysmal Atrial Fibrillation Active ? ? Gastroesophageal Reflux Disease Active ? ? Diverticulitis Active ? ? Atrophic Vaginitis Active ? ? Eczema Active ? ? Psoriasis Active ? ? Pain in Wrist Active ? ? Low Back Pain Active ? ? Osteoporosis Active ? ? Vertigo Active ? ? Prediabetes Active ? ? Mammography Abnormal Active ? ? Atypical Squamous Cells of Undetermined Significance Active ? ? on Cervical Papanicolaou Smear Pain in Right Foot Active ? ? Generalized Rash Active ? ? Notes: Granuloma Procedures None recorded. Results Lab Results Date Name Specimen Result Interpretation Description Value Range Status Address ? 08/21/2020 CMP, Serum ? No observation ? ? ? [facility] or Plasma recorded. [facility]: [address], [place] Past Encounters 10/24/2020 Osteoporosis; Prediabetes Bartolome Barajas MD-FACE: [address], [place] [address], Ph. 08/16/2020 Osteoporosis; Prediabetes Bartolome Barajas MD-FACE: [address] [place] [address], Ph. Social History Tobacco Smoking Status Former Smoker Notes: Quit 10 02 Vaccine List None recorded. Plan of Care Patient Goals Lower risk of Fracture Slow progression to Diabetes Mellitus Lower risk of Fracture Patient Instructions Still do not have C omplete COpies of DETAILED DEXA (BONE DENSITY ) reports No additional Tests if Needed now. Go for tests fasting , water only for 8 hours one week before next visit. we discussed bone density in detail. blair ure of metabolic bone disease. risks #1 -------Counseled healthy eating, calc ium rich foods yogurt, cheese, almonds, spinash other leafy green veg. HEALTHY EATING HABITS ----Limited Carbohydrate: a) Limit Bread, Noodles, Pasta, Potato, Rice and other high carbohydrate foods. 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 #3 Assistant Executive Housekeeper increase Vitamin D 2000 units daily. #4 Do not recommend calcium supplements #5 REview BONE DENSITY TREATMENT OPTIONS: 1) ANTIRESORPTIVE MEDS (blocks bone reso rption or bone breakdown a) *Bisphophonates (ORAL) Alendronate 7 0 mg weekly, ------- must swallow with [address] on empty stomach, remain sitting, standing, walking for sixty minutes after dose. main side effect is GI irritation. Usually treat five year, then drug holida y for one year or more. Resume if eviden ce of increasing Bone Resorption. *RECOMMEND ALENDRONATE 70 mg take one t ablet once each week as ABOVE. b) Bisphophonates (Intravvenous) Zolo ndrate (RECLAST) 5 mg yearly for three years. then drug holiday for one year or more. Resume if evidence of increasing Bone Resorption. Side effects can be achy b ones for days or week after infusion, lo w serum calcium will consider RECLAST if you have tr ouble with ALendronate. c) Prolia injection every six months. N ew class of drug prefer to use for those who do not tolerate bisphosphonates. THIRD CHoice 2) ANABOLIC MEDS ( Stimulates Bone Forma tion) a) PTH Hormone Analog: Teriparatide (Fo rteo) Daily Injection with Pen device. Also Tymlos, Abaloparatide (TYMLOS) Daily injection for two years. Or b ) Sclerostin inhibitor agent Romosozu mab (EVENITY) two injections (105 mg each) once monthly for 12 months. ---these drugs stimulate bone formation. Preferred for patients with markedly low bone density and/or multiple fractures. Usually treat for TWO YEARS of PTH Hormone Analog or 12 months of the Sclerostin Inhibitor then switch to Bisphosphonate Lock in gains made with Forteo, Tymlos, Evenity. PREVENT DIABETES: #1 eat less less junk food, much less carbo, especi ally Pasta, Bread, Potato, RIce, #2 move more walk -gradually increase -- avoid hills . be careful. Dont fall . First need tests done fasting at [facility] Second Need Complete COpies of DETAILED DEXA (BONE DENSITY ) reports THIRD May do additional Tests if Needed. we discussed bone density in detail. blair ure of metabolic bone disease. risks counseled healthy eating, calcium rich f oods yogurt, cheese, almonds, spinash other leafy green veg. sales counselor exercise: MOVE eg walking, 5 day LIFT 1-3# Upper body 2 days STRETCH neck to ankles Assistant Executive Housekeeper Vitamin D 1000 units daily. Do not recommend calcium supplements REview BONE DENSITY TREATMENT OPTIONS: 1) ANTIRESORPTIVE MEDS (blocks bone reso rption or bone breakdown a) *Bisphophonates (ORAL) Alendronate 7 0 mg weekly, Residronate 150 mg weekly preferred must swallow with 12 oz plain water on empty stomach, remain sitting, standing, walking for sixty minutes after dose. main side effect is GI irritation. Usually treat five year, then drug holiday for o ne year or more. Resume if evidence of i ncreasing Bone Resorption. * Will CONSIDER ALENDRONATE OR Residron ate. b) Bisphophonates (Intravvenous) Zolo ndrate (RECLAST) 5 mg yearly for three years. then drug holiday for one year or more. Resume if evidence of increasing Bone Resorption. Side effects can be achy b ones for days or week after infusion, lo w serum calcium will CONSIDER RECLAST c) Prolia injection every six months. N ew class of drug prefer to use for those who do not tolerate bisphosphonates. 2) ANABOLIC MEDS ( Stimulates Bone Forma tion) 1) PTH Hormone Analog: Forteo Daily Inj ection with Pen device. Also Tymlos, Daily injection these drugs stimulate bone formation. P referred for patients with markedly low bone density and/or multiple fractures. Usually treat for TWO YEARS, then switch to Bisphosphonate Lock in gains made with Forteo, Tymlos. Reminders Provider Appointments None recorded. ? ? Lab None recorded. ? ? Referral None recorded. ? ? Procedures None recorded. ? ? Surgeries None recorded. ? ? Imaging None recorded. ? ? Vitals 10/24/2020 03:30PM ENDOCRINOLOGY FOLLOW UP 30 Height Weight BMI Blood Pressure 149.86 cm 92.19 kg 41.1 kg/m2 118/76 mm[Hg] 08/16/2020 11:00AM ENDOCRINOLOGY NEW PATIENT 60 Height Weight BMI Blood Pressure 149.86 cm 93.17 kg 41.5 kg/m2 110/68 mm[Hg]
[2021-02-15 11:13] LABS: Abs Immature Grans 0.05 10^3/uL (0.0-0.06); Absolute Eosinophil Count 0.33 10^3/uL (0.0-0.7); Absolute Lymphocyte Count 3.24 10^3/uL (1.2-3.4); Basophils % 0.4; Eosinophils % 2.3; HCT 45.3 % (36.0-46.0); Immature Grans % 0.4; Lymphocytes % 22.7; MCH 29.4 pg (27.0-33.0); MCHC 33.1 % (32.0-36.0); MCV 88.8 fL (80-95); MPV 10.4 fL (8.0-11.0); Monocytes % 6.3; Neutrophils % 67.9; Nucleated RBC 0 %; Platelet Count 286 10^3/uL (130-400); RDW 12.1 % (11.7-14.6); RDW-SD 39.7 fL; WBC 14.26 10^3/uL (4.4-10.8)
[2021-02-15 11:19] LABS: Absolute Basophil Count 0.06 10^3/uL (0.0-0.2); Absolute Neutrophil Count 9.68 10^3/uL (1.2-6.7)
--- NOTE | 2021-02-15 11:24 | ED.GENADUL_ITS ---
Discharge Plan Disposition Patient Disposition: HOME Condition: Good Discharge Details Clinical Impression: Heart palpitations, Hypomagnesemia, Acute dyspnea Primary Care Provider: Dorita Zimmerman ED Provider: Klaudia Cordero Home Meds and New Rx's Prescriptions: New magnesium gluconate 30 mg (550 mg) tablet 30 mg PO DAILY Qty: 10 RF: 0 No Action DILTIAZEM ER 360 MG TAB.ER.24H 360 mg PO DAILY Qty: 90 RF: 4 Eliquis 5 mg tablet 5 mg PO BID Qty: 180 RF: 3 albuterol sulfate [ProAir HFA] 90 mcg/actuation HFA aerosol inhaler 2 puff inhalation Q6H PRNRF: 0 cholecalciferol (vitamin D3) 25 mcg (1,000 unit) capsule 25 mcg PO DAILY RF: 0 lovastatin 40 mg tablet 40 mg PO DAILY RF: 0 meclizine 25 mg tablet 25 mg PO TID PRNRF: 0 Discharge Instructions Instructions: Heart Palpitations (ED), Dyspnea (ED), Hypomagnesemia (ED) Additional Instructions: Please follow-up with your primary care physician, you are leaving against our recommendation prior to your repeat heart enzymes or troponin level I recommend you see your doctor in close outpatient follow-up Take your Eliquis as prescribed Take your diltiazem as prescribed Take the magnesium as recommended Return earlier should you have new, worsening, or persistent complaints Medical Decision Making Patient is alert, oriented, of decisional capacity, she had negative troponin and EKG does not show evidence of atrial fibrillation, she is in a normal sinus rhythm throughout this evaluation, in no distress, her blood pressure is normalized She is chronically anticoagulated with a and of neurologically intact I did recommend repeat troponin given her symptoms earlier today and she has declined Again she is alert, oriented, of decisional capacity and is aware that she is leaving against our medical recommendation we have like to perform another troponin prior to discharge home She will follow up with her primary care physician, she will take your medications exactly as prescribed She will continue to be sure to take her Eliquis this evening in addition to her Cardizem BNP negative, low suspicion for pulmonary embolism, patient's symptoms are identical to her prior atrial fibrillation exacerbation Discharged home in stable condition with stable vitals Chest x-ray negative per my review and radiology interpretation Differential Diagnosis Differential Diagnosis: Atrial fibrillation, CHF, pulmonary embolism, pneumonia Medical Records Medical records reviewed: Yes I reviewed the patient's medical records. Lab Data Lab results reviewed: Yes I reviewed the patient's lab results. HPI This 71-year-old female presents with report of palpitations and shortness of breath just prior to arrival, approximately an hour. She states that she was in atrial fibrillation. She states she does have a history of paroxysmal atrial fibrillation feels like this lasted approximately 30 minutes and has since resolved. She is otherwise symptomatically improved at this time. She denies any current chest pain or shortness of breath. She denies any calf pain or swelling. She states that this occurred secondary to missing a dose of her diltiazem 2 days ago. She took 2 doses yesterday for compensation. She denies any fever or chills. She denies any shortness of breath. She felt quite well until she felt her atrial fibrillation. She took her Eliquis today as prescribed. General Date/Time Provider Initiated Documentation: 02/15/21 10:57 . Related Data Home Medications Medication Instructions Recorded Confirmed apixaban 5 mg tablet 5 mg PO BID #180 tab-cap 11/18/18 02/15/21 albuterol sulfate 90 mcg/actuation 2 puff INHALATION Q6H PRN 11/10/20 02/15/21 aerosol inhaler cholecalciferol (vitamin D3) 25 25 mcg PO DAILY 11/10/20 02/15/21 mcg (1,000 unit) capsule lovastatin 40 mg tablet 40 mg PO DAILY 11/10/20 02/15/21 meclizine 25 mg tablet 25 mg PO TID PRN 01/15/21 02/15/21 magnesium gluconate 30 mg PO DAILY #10 tab 02/15/21 Previous Rx's Medication Instructions Recorded apixaban 5 mg tablet 5 mg PO BID #180 tab-cap 11/18/18 magnesium gluconate 30 mg PO DAILY #10 tab 02/15/21 Allergies Allergy/AdvReac Type Severity Reaction Status Date / Time contact metal agent Allergy Unknown Verified 02/15/21 10:58 General Stated Complaint: Chest Pain AMANDA: 2 Review of Systems Narrative: Review of systems negative x7 aside from where indicated in HPI PFSH Medical History BMI 36.0-36.9,adult Diverticulosis Former smoker GERD (gastroesophageal reflux disease) Granuloma annulare Hyperlipidemia Impaired fasting glucose Low back pain Obesity Osteoporosis Paroxysmal atrial fibrillation Pt has postponed cards f/u until the Fall 2016 ( doesnt have respite care for boarders) Prediabetes Psoriasis Vaginal atrophy Vaginal Pap smear with ASC-US Vertigo Social History Smoking/Tobacco Use Status: Former Tobacco Use Quit Date: 11/24/05 Smoking risk assessment performed?: Yes Alcohol Intake: never Drug use: Never Substance use type: does not use Household members: friend(s) Housing: house Number of Children: 3 number of grandchildren: 3 Pets and animals: Yes Pets and animals: cat(s) and other Details: rabbits What type of physical activity do you participate in: walking Seatbelt use: always Do you feel safe at home: Yes Do you feel safe in your relationship?: Yes Exam Const General: cooperative, comfortable and no acute distress Eyes Pupils: PERRL Neck Neck: no JVD Chest Chest: normal inspection of the chest Resp Effort & Inspection: normal respiratory effort Auscultation: clear to auscultation bilaterally Cardio Rate: regular rate Rhythm: regular rhythm GI Inspection: normal to inspection Skin General skin exam: no rashes or lesions noted Neuro General: patient alert, patient oriented x3 and CN's II-XI intact bilaterally Cranial Nerves: PERRL Cognition: normal cognition Speech: speech normal Motor: strength 5/5 throughout Other: Ambulatory with gait Course Vital Signs Vital signs: Vital Signs Temperature 36.8 C 02/15/21 10:59 Pulse 61 02/15/21 10:59 Respiratory Rate 16 02/15/21 10:59 Blood Pressure 125/51 L 02/15/21 10:59 Pulse Oximetry 95 02/15/21 10:59 Temperature 36.8 C 02/15/21 10:59 Temperature Source Skin 02/15/21 10:59 Pulse 61 02/15/21 10:59 Pulse 61 02/15/21 11:02 Respiratory Rate 18 02/15/21 11:07 Respiratory Effort Non-Labored 02/15/21 11:22 Respiratory Depth Normal 02/15/21 11:07 Respiratory Pattern Normal 02/15/21 11:07 Blood Pressure 125/51 L 02/15/21 10:59 Blood Pressure Position Supine 02/15/21 10:59 Pulse Oximetry 95 02/15/21 11:02 Oxygen Delivery Method Room Air 02/15/21 10:59 Oxygen Flow Rate 0 02/15/21 10:59 Pain Level 4 02/15/21 11:07 Lab/Test Results Lab/Test Results: Laboratory Tests Range/Units 02/15/21 11:03 WBC (4.4-10.8) 10^3/uL 14.26 H RBC (3.93-5.22) 10^6/uL 5.10 Hgb (11.2-15.7) g/dL 15.0 Hct (36.0-46.0) % 45.3 MCV (80-95) fL 88.8 MCH (27.0-33.0) pg 29.4 MCHC (32.0-36.0) % 33.1 RDW (11.7-14.6) % 12.1 Plt Count (130-400) 10^3/uL 286 MPV (8.0-11.0) fL 10.4 Immature Gran % 0.4 Neutrophils % 67.9 Lymphocytes % 22.7 Monocytes % 6.3 Eosinophils % 2.3 Basophils % 0.4 Nucleated RBC % % 0 Absolute Neutrophils (1.2-6.7) 10^3/uL 9.68 H Absolute Lymphocytes (1.2-3.4) 10^3/uL 3.24 Absolute Monocytes (0.1-0.8) 10^3/uL 0.90 H Absolute Eosinophils (0.0-0.7) 10^3/uL 0.33 Absolute Basophils (0.0-0.2) 10^3/uL 0.06
[2021-02-15 11:36] LABS: ALT 29 U/L (14-59); AST 16 U/L (15-37); Albumin 3.6 g/dL (3.4-5.0); Alkaline Phosphatase 155 U/L (46-116); BUN 17 mg/dL (7-18); Bilirubin, Total 0.3 mg/dL (0.2-1.0); CREATININE 0.9 mg/dL (0.55-1.02); Calcium 9.4 mg/dL (8.5-10.1); Chloride 103 mmol/L (98-107); Glucose 138 mg/dL (74-106); Magnesium 1.7 mg/dL (1.8-2.4); NT-proBNP 70 pg/mL (<300); Sodium 140 mmol/L (136-145); TSH 1.09 uIU/mL (0.36-3.74); Total Protein 7.7 g/dL (6.4-8.2)
[2021-02-15 11:40] LABS: Troponin I < 0.05 ng/mL (<0.06)
== END 2021-02-15 12:30 | disposition left against medical advice (07) ==
PROVIDERS: Emergency Provider Physician Assistant; PCP Nurse Practitioner Family
DX: R00.2 Palpitations (principal); E83.42 Hypomagnesemia; R06.00 Dyspnea, unspecified; I48.0 Paroxysmal atrial fibrillation; Z79.01 Long term (current) use of anticoagulants
CPT/HCPCS: 36415; 80053; 93005; 99285; 71045; 83735; 83880; 84443; 84484; 85025; 93010; 99284

== ENCOUNTER 2021-02-21 13:26 | Outpatient (REF) | payer MEDICARE, SELFPAY ==
[2021-02-23 14:38] LABS: COVID-19 RT-PCR UVMMC Result Negative (Negative)
== END 2021-02-21 13:27 | disposition home or self-care (01) ==
LOC: LBN 13:26
PROVIDERS: PCP Nurse Practitioner Family; Visit Provider Physician Assistant Medical
DX: Z20.822 Contact with and (suspected) exposure to COVID-19 (principal); J06.9 Acute upper respiratory infection, unspecified
CPT/HCPCS: U0003

== ENCOUNTER 2021-03-01 17:35 | Outpatient (REF) | payer MEDICARE, MEDICAID, SELFPAY ==
[2021-03-02 00:10] LABS: COVID-19 RT-PCR UVMMC Result Negative (Negative)
== END 2021-03-01 17:36 | disposition home or self-care (01) ==
LOC: NCHCN 17:35
PROVIDERS: PCP Nurse Practitioner Family; Visit Provider Nurse Practitioner Family
DX: Z20.822 Contact with and (suspected) exposure to COVID-19 (principal); R06.02 Shortness of breath
CPT/HCPCS: U0003; U0005

== ENCOUNTER 2021-03-08 15:26 | Outpatient (RCR) | payer MEDICARE, MEDICAID, SELFPAY ==
--- NOTE | 2021-03-08 15:45 | HOLTER_ITS ---
APPROVED REPORT Exam Type: HOLTER MONITOR APPLICATION Reason for Test: SOB Patient Location: O Conclusion This was a 48-hour Holter monitor reportedly ordered for dyspnea Rhythm throughout was sinus with an average heart rate of 67. Minimum was 45, maximum 97 There were 2 isolated PVCs There were occasional atrial premature beats and atrial pairs. There were several self-limited atria l runs longest of which was 7 beats in duration There was no atrial fibrillation, no pauses greater than 3 seconds, no high-grade AV block Patient symptoms corresponded to sinus rhythm rate 70
== END 2021-03-23 23:59 | disposition home or self-care (01) ==
LOC: RT 15:26
PROVIDERS: PCP Nurse Practitioner Family; Visit Provider Nurse Practitioner Family
DX: R06.02 Shortness of breath (principal); I49.3 Ventricular premature depolarization; I49.1 Atrial premature depolarization; I48.0 Paroxysmal atrial fibrillation; Z86.79 Personal history of other diseases of the circulatory system
CPT/HCPCS: 93227; 93225; 93226

== ENCOUNTER 2021-03-13 01:46 | Outpatient (CLI) | payer MEDICARE, MEDICAID, SELFPAY ==
--- NOTE | 2021-03-13 11:26 | DI.CT_ITS ---
EXAM: CT CHEST W CLINICAL HISTORY: PERSISTENT SOB,R06.02. TECHNIQUE: Imaging Protocol: Axial CT angiography was performed with multi-slice acquisition and mu lti-planar and/or 3D reconstructions. CONTRAST MATERIAL: Intravenous: Omnipaque 350 Contrast volume:structured data in ml COMPARISON: No exams were available for comparison FINDINGS: CT examination of the chest was performed with intravenous infusion of 70 cc Visipaque 320. Note is made of coronary artery calcification. The lungs are clear. There are mild central lobular pulmonary emphysematous changes particularly in the upper lobes.. No pleural effusion. Tracheobronchial tree appears intact. No evidence of pulmonary embolic disease. Thoracic aorta is of normal diameter, no thoracic aortic an eurysm or dissection, major branch vessels appear intact. No mediastinal or hilar adenopathy. Images obtained through the upper abdomen show unremarkable appearance of the visualized portions of the liver, spleen, pancreas and kidneys. There is a 25 millimeter in diameter left adrenal mass which is of intermediate attenuation, mean [place] approximately 37 Hounsfield units. This is an indeterminate mass. Correlation with adrenal nohemi col CT recommended, which includes noncontrast and venous phase and 15 minutes delayed postcontrast i maging. IMPRESSION: Mild pulmonary emphysematous changes. Incidental adrenal mass identified, adrenal protocol CT recommended. Incidental Findings RADIATION DOSE DELIVERED: 798.57mGy.cm Total DLP 798.57mGy.cm Total DLP DATA REPOSITORY: All CT scans at this facility are submitted to the National Radiology Data Registry (NRDR) Dose Index Registry (DIR) with the [employer] (ACR). RADIATION OPTIMIZATION: All CT scans at this facility use at least one of these dose optimization te chniques: automated exposure control; mA and/or kV adjustment per patient size (includes targeted exa ms where dose is matched to clinical indication); or iterative reconstruction.
[2021-03-13] MEDS: Normal Saline - Diluent 50 ML VIAL IV (11:29)
== END 2021-03-13 02:06 ==
PROVIDERS: PCP Nurse Practitioner Family; Visit Provider Nurse Practitioner Family
DX: R06.02 Shortness of breath (principal); J43.9 Emphysema, unspecified; D35.02 Benign neoplasm of left adrenal gland
CPT/HCPCS: 71260

== ENCOUNTER 2021-03-14 02:17 | Outpatient (CLI) | payer MEDICARE, MEDICAID, SELFPAY ==
--- NOTE | 2021-03-14 14:54 | DI.US_ITS ---
APPROVED REPORT EXAM: Comprehensive 2D, Doppler, and color-flow Echocardiogram Patient Location: Out-Patient Food Adviser: Afia Landa RDCS (AE) Indications: SOB, Atrial Fibrillation Other Information Study Quality: Fair. Technically limited study due to body habitus. Conclusion Normal left ventricular chamber size and wall thickness. Estimated ejection fraction is 60%. There are no segmental wall motion abnormalities Normal right ventricular size and systolic function Both atria are normal in size There is no significant valvular disease Wall motion Left Ventricle The left ventricle is normal size. The left ventricular systolic function is normal. The left ventric ular ejection fraction is within the normal range. There is normal left ventricular wall thickness. T here is normal LV segmental wall motion. Left ventricular filling pattern is normal for age. Transmit ral Doppler flow pattern suggests impaired LV relaxation. There is no ventricular septal defect visua lized. LVEF is 60%. Right Ventricle The right ventricle is normal size. The right ventricular systolic function is normal. The RVSP is 26 .5 mmHg. Atria The left atrium size is normal. The right atrium size is normal. The interatrial septum is intact wit h no evidence for an atrial septal defect. Aortic Valve The aortic valve is normal in structure. There is no aortic valvular stenosis. No aortic regurgitatio n is present. Mitral Valve The mitral valve is normal in structure. No evidence of mitral valve stenosis. Trace mitral regurgita tion. Tricuspid Valve The tricuspid valve is normal in structure. There is no tricuspid valve stenosis. Trace tricuspid reg urgitation. Pulmonic Valve The pulmonary valve is normal in structure. There is no pulmonic valvular stenosis. There is no pulmo bhavik valvular regurgitation. Great Vessels The aortic root is normal in size. The ascending aorta is normal in size. Aortic arch is not well vis ualized. IVC is normal in size and collapses >50% with inspiration. Pericardium There is no pericardial effusion. 2D Dimensions IVSD d PLAX 0.90 cm F: 0.6-1.0 LV Vol A2C d MOD 75.8 mL LVPW d PLAX 0.92 cm F: 0.6 - 1.0 LV Vol A4C d MOD 67.4 mL LVID d PLAX 4.07 cm F: 3.8 - 5.2 LA vol/ BSA A2C s A-L 22.6 mL/m2 LVDs 2.70 cm F: 2.2 - 3.5 LA vol/ BSA A4C s A-L 14.0 mL/m2 Ao Root d 2.11 cm F: 2.7 - 3.3 LA Vol/ BSA Biplane s A-L 18.0 mL/m2 RA Area A4C 7.53 cm2 LA Area A4C s MOD 12.57 cm2 RA Vol/ BSA A4C s A-L 7.4 mL/m2 LA Area A2C s MOD 16.17 cm2 Ao Asc Diam d 2.17 cm F: 2.3 - 3.1 LV EF A4C MOD 61.2 % LV EF Teichholz 62.5 % LV EF A2C MOD 62.1 % LVEF (Ruth's) 59.58 % F: 54 - 74 LV EF Biplane MOD 59.6 % LV Volume 54.94 mL F: 46 - 106 SV 42.63 mL LV Volume Index 29.53 mL/m2 F: 29 - 61 SV Index 22.84 mL/m2 LV Vol Biplane MOD 71.5 mL FS 33.30 % M-Mode TAPSE 1.65 cm (M/F) >1.7 LV Diastology MV E' medial 0.110 (>0.07 m/s) E/A Ratio 0.8 LV E/e MED 6.80 (<14) MV E Vmax 0.74 (0.4-1.3 m/s) MV E' lateral 0.098 (>0.1 m/s) MV A Vmax 0.90 (0.4-1.3 m/s) LV E/e LAT 7.60 (<14) MV E/A Ratio 0.81 MV E/E' medial 6.80 MV E/E' lateral 7.62 Aortic Valve LVOT Area 2.73 cm2 AoV Area Vmax 2.44 cm2 LVOT Vmax 1.50 m/s AoV Area/ BSA (Vmax) 1.31 cm2/m2 LVOT Mean Ja. 1.03 m/s SALO Mean Ja. 2.22 cm2 LVOT Peak Grad 9.0 mmHg SALO Mean Ja. Index 1.19 cm2/m2 LVOT Mean Grad 4.9 mmHg LVOT VTI 0.293 m LVOT Diam s 1.85 cm AoV Vmax 1.69 m/s Velocity Ratio 0.88 AoV Mean Ja. 1.27 m/s AoV Peak Grad 11.4 mmHg LVOT SV 80.18 mL AoV Mean Grad 7.0 mmHg AoV VTI 0.370 m AoV Area VTI 2.17 cm2 AoV Area/ BSA (VTI) 1.16 cm/m2 Mitral Valve MV DT 285 (160-240 msec) MV PHT 83 msec MV Area PHT 2.67 cm2 MV VTI 0.383 m MV VTI Annulus 0.383 m MV Area VTI 2.10 (4.0-6.0 cm2) Pulmonary Valve PV Vmax 1.08 (0.5-1.5 m/s) RVOT Peak Gr. 2.61 mmHg PV Peak Grad 4.7 mmHg RVOT Mean Gr. 1.30 mmHg PV Mean Grad 2.6 mmHg RVOT VTI 0.164 m PV VTI 0.239 m RVOT Vmax 0.81 m/s Tricuspid Valve TR Peak Grad 23.5 mmHg TR Vmax 2.43 m/s RA Pressure 3.00 mmHg RVSP (TR) 26.5 mmHg
== END 2021-03-14 02:37 ==
PROVIDERS: PCP Nurse Practitioner Family; Visit Provider Nurse Practitioner Family
DX: R06.02 Shortness of breath (principal); I48.91 Unspecified atrial fibrillation; R93.9 Diagnostic imaging inconclusive due to excess body fat of patient
CPT/HCPCS: 93306

== ENCOUNTER 2021-03-15 16:13 | Outpatient (REF) | payer MEDICARE, MEDICAID, SELFPAY ==
[2021-03-15 17:53] LABS: HDL Cholesterol 37 mg/dL (40-60); LDL CHOLESTEROL 100 mg/dL (<100)
== END 2021-03-15 16:14 | disposition home or self-care (01) ==
LOC: NCHCN 16:13
PROVIDERS: PCP Nurse Practitioner Family; Visit Provider Nurse Practitioner Family
DX: R06.02 Shortness of breath (principal); E78.5 Hyperlipidemia, unspecified
CPT/HCPCS: 83721; 83718

== ENCOUNTER 2021-05-03 09:34 | Outpatient (REF) | payer MEDICARE, MEDICAID, SELFPAY ==
[2021-05-03 19:20] LABS: Calculated LDL 87 mg/dL (<100); Cholesterol 149 mg/dL (<200); HDL Cholesterol 40 mg/dL (40-60); Triglyceride 112 mg/dL (<150)
== END 2021-05-03 09:35 | disposition home or self-care (01) ==
LOC: NCHCN 09:34
PROVIDERS: PCP Nurse Practitioner Family; Visit Provider Nurse Practitioner Family
DX: E78.5 Hyperlipidemia, unspecified (principal); M81.0 Age-related osteoporosis without current pathological fracture
CPT/HCPCS: 80061; 82306

== ENCOUNTER 2021-05-25 07:14 | Outpatient (CLI) | payer MEDICARE, MEDICAID, SELFPAY ==
[2021-05-25] MEDS: Albuterol HFA 18 GM 200 PUFF INH IH (15:57)
[2021-05-25] MEDS: Inhaler, Assist Device 1 EACH MC (15:58)
--- NOTE | 2021-05-26 14:00 | W.PFT ---
Date of service: 05/25/21 Time of Service: 10:02 Pulmonary Function Test Result Interpretation Spirometry: No evidence of obstructive airways disease, no bronchodilator response Lung Volumes: No evidence of restriction Diffusion Capacity: Normal Airway Pressure: Normal Impression Normal pulmonary function study Clinical Correlation therefore is recommended.
== END 2021-05-25 07:15 | disposition home or self-care (01) ==
PROVIDERS: PCP Nurse Practitioner Family; Visit Provider Nurse Practitioner Family
DX: R09.02 Hypoxemia (principal)
CPT/HCPCS: 94060; 94726; 94729

== ENCOUNTER 2021-06-26 17:45 | Outpatient (REF) | payer MEDICARE, MEDICAID, SELFPAY ==
[2021-06-27 08:49] LABS: IgE 40 IU/mL (<158)
[2021-06-27 13:55] LABS: ANA Interpretation Negative (Negative)
[2021-06-28 13:48] LABS: SS-A Antibody 1.2 Units (<20.0)
[2021-06-28 13:49] LABS: SS-B (La) Ab, IgG 2.5 Units (<20.0)
[2021-06-28 13:50] LABS: RNP Ab, IgG 1.1 Units (<20.0); Sm (Smith) Ab, IgG 1.6 Units (<20.0)
[2021-06-28 15:40] LABS: Aldolase 6.1 U/L (<7.7)
[2021-06-28 23:25] LABS: Scl 70 Antibodies, IgG <0.2 U
[2021-07-12 18:10] LABS: Anti-EJ Ab Negative (Negative); Anti-Jo-1 Ab <20 Units (<20); Anti-Ku Ab Negative (Negative); Anti-MDA-5 Ab (CADM-140) <20 Units (<20); Anti-Mi-2-Ab Negative (Negative); Anti-NXP-2 (P140) Ab <20 Units (<20); Anti-OJ Ab Negative (Negative); Anti-PL-12 Ab Negative (Negative); Anti-PL-7 Ab Negative (Negative); Anti-PM/Scl-100 Ab <20 Units (<20); Anti-SRP Ab Negative (Negative); Anti-SS-A 52kD Ab, IgG <20 Units (<20); Anti-TIF-1gamma Ab <20 Units (<20); Anti-U1 RNP Ab <20 Units (<20); Anti-U2 RNP Ab Negative (Negative); Anti-U3 RNP (Fibrillarin) Negative (Negative)
== END 2021-06-26 17:46 | disposition home or self-care (01) ==
LOC: LBN 17:45
PROVIDERS: PCP Nurse Practitioner Family; Visit Provider Student in an Organized Health Care Education/Training Program
DX: R06.02 Shortness of breath (principal)
CPT/HCPCS: 83516; 86235; 82085; 82785; 86038

== ENCOUNTER 2021-07-03 07:39 | Outpatient (CLI) | payer MEDICARE, MEDICAID, SELFPAY ==
--- NOTE | 2021-07-03 15:45 | W.PFT ---
Date of service: 07/03/21 Time of Service: 10:09 Pulmonary Function Test Result Interpretation Airway Pressure: MIP is within normal limits. MEP is slightly decreased. Impression Slightly decreased expiratory pressure Clinical Correlation therefore is recommended.
== END 2021-07-03 07:40 | disposition home or self-care (01) ==
PROVIDERS: PCP Nurse Practitioner Family; Visit Provider Student in an Organized Health Care Education/Training Program
DX: R06.02 Shortness of breath (principal)
CPT/HCPCS: 94200

== ENCOUNTER 2022-01-22 18:41 | Outpatient (REF) | payer MEDICARE, MEDICAID, SELFPAY ==
[2022-01-22 20:16] LABS: Anion Gap 10.2 mmol/L (3-11); BUN 18 mg/dL (7-18); CO2 25.8 mmol/L (21.0-32.0); CREATININE 0.8 mg/dL (0.55-1.02); Calcium 9.6 mg/dL (8.5-10.1); Chloride 101 mmol/L (98-107); Glucose 104 mg/dL (74-106); Potassium 4.5 mmol/L (3.5-5.1); Sodium 137 mmol/L (136-145)
[2022-01-22 20:41] LABS: HCT 45.5 % (36.0-46.0); HGB 14.6 g/dL (11.2-15.7); MCH 29.4 pg (27.0-33.0); MCHC 32.1 % (32.0-36.0); MCV 91.7 fL (80-95); MPV 10.8 fL (8.0-11.0); Platelet Count 280 10^3/uL (130-400); RBC 4.96 10^6/uL (3.93-5.22); RDW 12.7 % (11.7-14.6); RDW-SD 42.5 fL; WBC 12.51 10^3/uL (4.4-10.8)
[2022-01-24 05:42] LABS: Vitamin D 25 Total 35.9 ng/mL (30-100)
== END 2022-01-22 18:42 | disposition home or self-care (01) ==
LOC: NCHCN 18:41
PROVIDERS: PCP Nurse Practitioner Family; Visit Provider Nurse Practitioner Family
DX: R73.03 Prediabetes (principal); E66.8 Other obesity; I48.0 Paroxysmal atrial fibrillation; E78.5 Hyperlipidemia, unspecified
CPT/HCPCS: 80048; 82306; 85027; 83036

== ENCOUNTER 2022-01-24 03:52 | Outpatient (CLI) | payer MEDICARE, MEDICAID, SELFPAY ==
--- NOTE | 2022-01-24 | DI.MAMMO_ITS ---
Exam(s) MAMMO SCREENING EXAM: MAMMO SCREENING CLINICAL HISTORY: SCREENING FOR BREAST CANCER Z12.39 TECHNIQUE: Mammograms were interpreted according to the usual protocol including computer analysis w [employer] CAD system, tomosynthesis and C-view imaging. COMPARISON: 2012 through 2015 FINDINGS: The breasts are composed of scattered fibroglandular densities, Breast Density category B. No suspicious masses or suspicious microcalcifications are seen. No skin thickening or abnormal axillary lymph nodes are seen. There has been no significant change from prior exams. IMPRESSION: BI-RADS Category 1, Negative mammogram Yearly screening mammography is recommended. Breast Density - Category B, scattered fibroglandular densities. A negative radiographic report should not delay biopsy if a dominant or clinically suspicious mass is present. Up to ten percent of cancers are not identified on mammography. A negative report may reinforce clinical impression. Adenosis and dense breasts may obscure an underlying neoplasm. False positive reports average 6 to 10%. Patient will receive a letter notifying them of these results.
== END 2022-01-24 04:12 ==
PROVIDERS: PCP Nurse Practitioner Family; Visit Provider Nurse Practitioner Family
DX: Z12.31 Encounter for screening mammogram for malignant neoplasm of breast (principal)
CPT/HCPCS: 77063; 77067

== ENCOUNTER 2022-03-04 16:06 | Outpatient (REF) | payer MEDICARE, MEDICAID, SELFPAY ==
[2022-03-04 21:24] LABS: Bilirubin Negative (Negative); Blood Negative (Negative); Clarity Clear (Clear); Glucose Negative (Negative); Ketones Negative (Negative); Leukocyte Esterase Negative (Negative); Nitrite Negative (Negative); Urobilinogen 0.2 EU/dL (Up TO 0.2)
== END 2022-03-04 16:07 | disposition home or self-care (01) ==
LOC: LBN 16:06
PROVIDERS: PCP Nurse Practitioner Family; Visit Provider Physician Assistant
DX: R39.89 Other symptoms and signs involving the genitourinary system (principal)
CPT/HCPCS: 81003

== ENCOUNTER 2022-03-05 08:24 | Outpatient (CLI) | payer MEDICARE, MEDICAID, SELFPAY ==
--- NOTE | 2022-03-05 07:15 | DI.CT_ITS ---
Exam(s) CT ABDOMEN PELVIS W EXAM: CT ABDOMEN PELVIS W CLINICAL HISTORY: left flank and LUQ pain wtih palpation, R10.9 TECHNIQUE: Imaging Protocol: Axial computed tomography images with coronal and sagittal reformatted images were created and reviewed CONTRAST MATERIAL: Intravenous: Omnipaque 350 Contrast volume:100 mL Oral: Yes COMPARISON: CT CT CHEST W from 03/13/2021 FINDINGS: ABDOMEN: Lung Bases: Coronary artery calcifications are present. Liver: Normal density. No measurable mass. Portal, Superior Mesenteric, and Splenic Veins: Unremarkable. Gallbladder and Biliary Tract: No radiodense calculus or dilation. Pancreas: Normal density, no abnormal calcifications or inflammatory process. Spleen: Normal. Adrenals: There is a 2.3 x 2.6 cm hypodense left adrenal nodule. This is unchanged compared to the C T scan from 03/13/2021. Kidneys: Normal size, contour and axis. There is a 2 mm nonobstructing stone in the midpole of the le ft kidney. No ureterolithiasis or hydronephrosis. There is a tiny density in the inferior pole of t he left kidney. It is too small for further characterization, but likely reflects a small cyst. Abdominal Aorta: Abdominal portion non-dilated. Atherosclerosis. Bowel: No obstruction or bowel wall thickening. Appendix is unremarkable. There is diverticulosis see n in the sigmoid colon, but no evidence of acute diverticulitis. Peritoneal Cavity: No ascites, collection or mesenteric inflammatory response. No free air. Lymph Nodes: Within normal limits. Bones: Within normal limits for the patient's age. There is L5 spondylolysis, but no evidence of spo ndylolisthesis. Soft Tissues: Unremarkable. PELVIS: Bladder: Symmetric distention, no gross wall thickening. Reproductive Organs: Unremarkable as visualized. Lymph Nodes: Within normal limits. Bones: Within normal limits for the patient's age. IMPRESSION: 1. Left nephrolithiasis. No evidence of hydronephrosis or ureterolithiasis. 2. 2.3 x 2.6 cm hypodense left adrenal nodule. CT or MRI is recommended for further evaluation using the adrenal protocol. RADIATION DOSE DELIVERED: 1,099.83mGy.cm Total DLP DATA REPOSITORY: All CT scans at this facility are submitted to the National Radiology Data Registry (NRDR) Dose Index Registry (DIR) with the [employer] (A[employer]). RADIATION OPTIMIZATION: All CT scans at this facility use at least one of these dose optimization te chniques: automated exposure control; mA and/or kV adjustment per patient size (includes targeted exa ms where dose is matched to clinical indication); or iterative reconstruction.
[2022-03-05 08:58] LABS: Abs Immature Grans 0.02 10^3/uL (0.0-0.06); Absolute Basophil Count 0.03 10^3/uL (0.0-0.2); Absolute Eosinophil Count 0.14 10^3/uL (0.0-0.7); Absolute Lymphocyte Count 2.23 10^3/uL (1.2-3.4); Absolute Monocyte Count 0.69 10^3/uL (0.1-0.8); Basophils % 0.3; Eosinophils % 1.3; HCT 45.2 % (36.0-46.0); HGB 14.8 g/dL (11.2-15.7); Immature Grans % 0.2; Lymphocytes % 20.2; MCH 29.7 pg (27.0-33.0); MCHC 32.7 % (32.0-36.0); MCV 90.8 fL (80-95); MPV 10.1 fL (8.0-11.0); Monocytes % 6.3; Neutrophils % 71.7; Nucleated RBC 0 %; Platelet Count 291 10^3/uL (130-400); RBC 4.98 10^6/uL (3.93-5.22); RDW 12.4 % (11.7-14.6); RDW-SD 40.6 fL; WBC 11.02 10^3/uL (4.4-10.8)
[2022-03-05 09:16] LABS: ALT 19 U/L (14-59); AST 19 U/L (15-37); Albumin 3.8 g/dL (3.4-5.0); Alkaline Phosphatase 113 U/L (46-116); Anion Gap 7.5 mmol/L (3-11); BUN 18 mg/dL (7-18); Bilirubin, Total 0.3 mg/dL (0.2-1.0); CO2 26.5 mmol/L (21.0-32.0); CREATININE 0.8 mg/dL (0.55-1.02); Calcium 9.2 mg/dL (8.5-10.1); Chloride 104 mmol/L (98-107); Glucose 116 mg/dL (74-106); Potassium 4.5 mmol/L (3.5-5.1); Sodium 138 mmol/L (136-145); Total Protein 7.4 g/dL (6.4-8.2)
[2022-03-05] MEDS: Breeza Beverage 473 ML BTL 950 ML PO (09:21)
[2022-03-05] MEDS: Omnipaque 350 MG/ML 50 ML BTL PO (09:22)
[2022-03-05] MEDS: Omnipaque 350 MG/ML 100 ML BTL IJ (09:58)
== END 2022-03-05 08:44 ==
PROVIDERS: Physician Assistant; PCP Nurse Practitioner Family; Visit Provider Nurse Practitioner Adult Health
DX: R10.12 Left upper quadrant pain (principal); R10.32 Left lower quadrant pain; N39.0 Urinary tract infection, site not specified; N20.0 Calculus of kidney; K57.30 Diverticulosis of large intestine without perforation or abscess without bleeding; D35.02 Benign neoplasm of left adrenal gland
CPT/HCPCS: 36415; 80053; 74177; 85025; J3490; Q9967

== ENCOUNTER 2022-04-16 19:02 | Outpatient (REF) | payer MEDICARE, MEDICAID, SELFPAY ==
[2022-04-16 19:35] LABS: Calculated LDL 92 mg/dL (<100); Cholesterol 174 mg/dL (<200); HDL Cholesterol 55 mg/dL (40-60); Triglyceride 138 mg/dL (<150)
[2022-04-17 12:45] LABS: ALT 24 U/L (14-59); AST 17 U/L (15-37); Creatine Kinase 46 U/L (26-192)
== END 2022-04-16 19:03 | disposition home or self-care (01) ==
LOC: NCHCN 19:02
PROVIDERS: PCP Nurse Practitioner Family; Visit Provider Nurse Practitioner Family
DX: E78.5 Hyperlipidemia, unspecified (principal)
CPT/HCPCS: 80061; 82550; 84450; 84460

== ENCOUNTER → 2022-05-09 10:10 | Outpatient (CLI) | payer MEDICARE, MEDICAID, SELFPAY ==
--- NOTE | 2022-05-09 14:26 | DI.RAD_ITS ---
Exam(s) XR LUMBAR SPINE COMPLETE EXAM: XR LUMBAR SPINE COMPLETE CLINICAL HISTORY: CHRONIC LOW BACK PAIN, M54.5. TECHNIQUE: 2D digital imaging was performed. COMPARISON: CT CT ABDOMEN PELVIS W from 03/05/2022 FINDINGS: Five views There are no compression fractures nor disc space narrowing. However, there are pars interarticulari s defects evident at L5 level. No prominent listhesis nor disc space narrowing at this level. No pr ominent facet arthropathy in the lumbar spine. No scoliosis. Twelfth ribs are asymmetric. IMPRESSION: Bilateral L5 pars defects. No obvious listhesis on these views. If clinically indicated flexion and extension lateral views can be performed to determine the true amount of listhesis-slippage during e veryday activity. There is no disc space narrowing. DATA REPOSITORY: RADIATION DOSE DELIVERED:
== END ==
PROVIDERS: PCP Nurse Practitioner Family; Visit Provider Nurse Practitioner Family
DX: M43.06 Spondylolysis, lumbar region
CPT/HCPCS: 72110

== ENCOUNTER 2022-05-13 02:36 | Outpatient (CLI) | payer MEDICARE, MEDICAID, SELFPAY ==
[2022-05-16 11:59] LABS: Renin Activity, Plasma 1.6 ng/mL/h
[2022-05-17 16:26] LABS: Metanephrine, Free 0.27 nmol/L (<0.50)
== END 2022-05-13 02:37 | disposition home or self-care (01) ==
LOC: LBO 02:37
PROVIDERS: PCP Nurse Practitioner Family; Visit Provider Nurse Practitioner Family
DX: E27.8 Other specified disorders of adrenal gland (principal)
CPT/HCPCS: 36415; 82088; 82533; 83835; 84244

== ENCOUNTER → 2022-05-28 01:58 | Outpatient (CLI) | payer MEDICARE, MEDICAID, SELFPAY ==
--- NOTE | 2022-05-28 | DI.RAD_ITS ---
Exam(s) XR LUMBAR SPINE FLEX/EXT ONLY EXAM: XR LUMBAR SPINE FLEX/EXT ONLY CLINICAL HISTORY: F/U ABNL XR, LOW BACK PAIN, M54.5,? DEGREE OF LISTHESIS. TECHNIQUE: 2D digital imaging was performed. COMPARISON: CR XR LUMBAR SPINE COMPLETE from 05/09/2022 FINDINGS: Two lateral views-flexion extension. There are no compression fractures. Pars defects at L5 noted with anterolisthesis L5 upon S1. Durin g flexion there is approximately 11 millimeters anterior slippage of L5 upon S1, without disc space n arrowing. During extension there is also 11 millimeters anterior slippage of L5 upon S1, also without significa nt disc space narrowing at this level. Also no disc space narrowing at the other levels in the lumbosacral spine. The abdominal aorta is ca lcified. IMPRESSION: 11 millimeters anterolisthesis L5 upon S1 which is identical during flexion and extension. DATA REPOSITORY: RADIATION DOSE DELIVERED:
== END ==
PROVIDERS: PCP Nurse Practitioner Family; Visit Provider Nurse Practitioner Family
DX: M43.17 Spondylolisthesis, lumbosacral region (principal)
CPT/HCPCS: 72120

== ENCOUNTER → 2022-11-11 13:03 | Outpatient (CLI) | payer MEDICARE, MEDICAID, SELFPAY ==
--- NOTE | 2022-11-11 | DI.RAD_ITS ---
Exam(s) XR CHEST 2V PA LATERAL EXAM: XR CHEST 2V PA LATERAL CLINICAL HISTORY: ACUTE COUGH, R05.1, ? PNEUMONIA TECHNIQUE: 2D digital imaging was performed. COMPARISON: CT CT CHEST W from 03/13/2021 FINDINGS: HEART: Normal size. Aorta: Not dilated. PULMONARY VASCULATURE: Normal. LUNGS: Clear. PLEURAL SPACE: No pleural effusion or pneumothorax. BONE:Degenerative changes thoracic spine no compression fracture. IMPRESSION: No acute abnormality. DATA REPOSITORY: RADIATION DOSE DELIVERED:
== END ==
PROVIDERS: PCP Nurse Practitioner Family; Visit Provider Nurse Practitioner Family
DX: R05.1 Acute cough (principal)
CPT/HCPCS: 71046

== ENCOUNTER 2022-11-11 14:09 | Outpatient (REF) | payer MEDICARE, SELFPAY ==
[2022-11-13 02:08] LABS: Influenza A RNA Result Negative (Negative); Influenza B RNA Result Negative (Negative); RSV RNA Result Negative (Negative)
== END 2022-11-11 14:10 | disposition home or self-care (01) ==
LOC: NCHCN 14:09
PROVIDERS: PCP Nurse Practitioner Family; Visit Provider Nurse Practitioner Family
DX: R05.1 Acute cough (principal)
CPT/HCPCS: 87631

== ENCOUNTER 2022-12-09 02:06 | Outpatient (CLI) | payer MEDICARE, MEDICAID, SELFPAY ==
--- NOTE | 2022-12-09 07:30 | DI.US_ITS ---
Exam(s) US PELVIS TRANSVAGINAL EXAM: US PELVIS TRANSVAGINAL CLINICAL HISTORY: POSTMENOPAUSAL BLEEDING, N95.0, ? VAGINAL ATROPHY VS VAGINISMUS. TECHNIQUE: Transabdominal and transvaginal pelvic ultrasound was performed using standard protocol. COMPARISON: US PELVIS TRANSVAG from 06/10/2017 FINDINGS: KIDNEYS: Limited renal evaluation is unremarkable. UTERUS: Position: Anteverted. Size: 7.4 long by 3.5 AP by 4.8 transverse cm Endometrium: 1.0 cm. The endometrial stripe is thickened and heterogeneous. Myometrium: Unremarkable. Cervix: Unremarkable. OVARIES: The ovaries were not seen transabdominally or transvaginally. No suspicious adnexal masses are seen sonographically. CUL-DE-SAC: Free fluid: None. Other: None. IMPRESSION: 1. Limited evaluation of the kidneys is unremarkable. 2. Thickened heterogeneous endometrial stripe in this postmenopausal patient. Differential considera tions include hyperplasia, neoplasm or polyp. Gynecologic consult is recommended. 3. The ovaries were not visualized on this examination. No adnexal masses are seen sonographically. DATA REPOSITORY:
== END 2022-12-09 02:26 ==
PROVIDERS: PCP Nurse Practitioner Family; Visit Provider Nurse Practitioner Family
DX: N95.0 Postmenopausal bleeding (principal)
CPT/HCPCS: 76830; 76856

== ENCOUNTER 2022-12-26 16:05 | Outpatient (REF) | payer MEDICARE, SELFPAY ==
--- NOTE | 2022-12-26 15:00 | ENDOMET_PTH ---
PATIENT: Lucero Arthur LOC: N U#:[id number] AGE/SX: 72/F ROOM: RE12/26/[address]: Susan Rosario DO : 1950 BED: DIS: 12/26/2022 SPEC #: [id number] RECD: 12/26/22 17:16 STATUS: FAIZAN REQ #: [id number] BREE: 12/26/22 15:[address]: Susan Rosario DEPT: Surgical Specimen RECD BY: Klaudia Kwan ENTERED: 12/26/22 17:17 SP TYPE: Endomet OTHR DR: Dorita Zimmerman Tissues: 1 - ENDOMETRIUM BX/SJETTE Procedures: GROSS AND MICRO LEVEL 4 Comments: [id number]
== END 2022-12-26 16:06 | disposition home or self-care (01) ==
LOC: LBN 16:05
PROVIDERS: PCP Nurse Practitioner Family; Visit Provider Obstetrics & Gynecology
DX: N95.0 Postmenopausal bleeding (principal)
CPT/HCPCS: 88305

== ENCOUNTER 2023-01-27 02:15 | Outpatient (CLI) | payer MEDICARE, SELFPAY ==
--- NOTE | 2023-01-27 | DI.MAMMO_ITS ---
Exam(s) MAMMO SCREENING EXAM: MAMMO SCREENING CLINICAL HISTORY: SCREENING, Z12.39 TECHNIQUE: Mammograms were interpreted according to the usual protocol including computer analysis w [employer] CAD system, tomosynthesis and C-view imaging. COMPARISON: 2012 through 2021 FINDINGS: The breasts are composed of scattered fibroglandular densities, Breast Density category B. No suspicious masses or suspicious microcalcifications are seen. No skin thickening or abnormal axillary lymph nodes are seen. There has been no significant change from prior exams. IMPRESSION: BI-RADS Category 1, Negative mammogram Yearly screening mammography is recommended. Breast Density - Category B, scattered fibroglandular densities. A negative radiographic report should not delay biopsy if a dominant or clinically suspicious mass is present. Up to ten percent of cancers are not identified on mammography. A negative report may reinforce clinical impression. Adenosis and dense breasts may obscure an underlying neoplasm. False positive reports average 6 to 10%. Patient will receive a letter notifying them of these results.
== END 2023-01-27 02:35 ==
LOC: DI 02:15
PROVIDERS: PCP Nurse Practitioner Family; Visit Provider Nurse Practitioner Family
DX: Z12.31 Encounter for screening mammogram for malignant neoplasm of breast (principal)
CPT/HCPCS: 77063; 77067

== ENCOUNTER 2023-02-12 12:38 | Emergency (ER) | payer MEDICARE, MEDICAID, SELFPAY ==
[2023-02-12] VITALS (36 sets, daily range): BP systolic 112–173; BP diastolic 43–68; PULSE 62–82; RESP 16–27; TEMP 36.7–37.1; O2SAT 95–100
--- NOTE | 2023-02-12 12:30 | RT.EKG_ITS ---
APPROVED REPORT Exam: Resting ECG Reason for Exam: irrregular heart rate Patient Location: E HR:68 bpm ECG Measurements Heart Rate 68 AXIS SC 149 P 31 QRSd 65 QRS -28 QT 366 T 60 QTc 391 Conclusion Sinus rhythm...normal P axis, V-rate 60- 99 Inferior infarct, old...Q >35mS, II III aVF
--- NOTE | 2023-02-12 12:45 | DI.RAD_ITS ---
Exam(s) XR PORTABLE CHEST AP EXAM: XR PORTABLE CHEST AP CLINICAL HISTORY: cough TECHNIQUE: 2D digital imaging was performed of the chest. One image was obtained. An AP view was ob tained. COMPARISON: CR XR PORTABLE CHEST AP from 02/15/2021 CR XR CHEST 2V PA LATERAL from 11/11/2022 FINDINGS: MEDIASTINUM: Normal. HEART: Normal. PULMONARY VASCULATURE: Normal. LUNGS: Clear. PLEURAL SPACE: No pleural effusion or pneumothorax. BONE:Within normal limits for the patient's age. OTHER FINDINGS:Normal. IMPRESSION: No acute pulmonary findings. DATA REPOSITORY: RADIATION DOSE DELIVERED:
--- NOTE | 2023-02-12 12:54 | ED.GENADUL_ITS ---
Discharge Plan Disposition Patient Disposition: Home Condition: Stable Discharge Details Clinical Impression: Shortness of breath Primary Care Provider: Dorita Zimmerman ED Provider: Arie Casillas Home Meds and New Rx's Prescriptions: New furosemide [Lasix] 20 mg tablet 20 mg PO DAILY Qty: 14 0RF Continued diltiazem HCl 300 mg capsule,extended release 24 hr 300 mg PO DAILY DILTIAZEM ER 360 MG TAB.ER.24H 360 mg PO DAILY Qty: 90 4RF Patient Comments: Decreased to 300 02/12/2023 CT Eliquis 5 mg tablet 5 mg PO BID Qty: 180 3RF cholecalciferol (vitamin D3) 25 mcg (1,000 unit) capsule 25 mcg PO DAILY lovastatin 40 mg tablet 40 mg PO DAILY meclizine 25 mg tablet 25 mg PO TID PRN norethindrone acetate [Aygestin] 5 mg tablet 5 mg PO BID Qty: 60 3RF Discharge Instructions Instructions: Dyspnea (ED) Additional Instructions: your blood work and xray along with ekg did not show concerning findings, you were not in afib while you were here follow up with your primary care provider within 1 week and discuss continuing your furosemide (lasix) if you feel more ill, have worsening shortness of breath or chest pain return to the emergency department Medical Decision Making 73 yo female with hx of afib on eliquis, htn, who comes in with 3 weeks of cough and 3 days of shortness of breath and stating she feels she is in afib that is causing her to feel like she is short of breath. She denies chest pain/pressure, fevers, abdominal pain, diaphoresis, vomitin, nausea. She states the cough is intermittently productive. She arrives stable speaking clearly in no distress, caox4. She is in sinus with normal oxygenation, bp and oxygenation is 98% on room air. She has mild apical wheezing bilterally on lung exam, no murmurs, no leg swelling or calf tenderness. Given her cough and shortness of breath will proceed with ekg/troponin, cbc, cmp, fluvid, and cxr and trial a duoneb. She has no tachycardia, no hypoxia, no evidence of dvt on exam so doubt PE and is on eliquis. labs including troponin unremarkable, no change with neb and she states she still feels like she has subjective shortness of breath, clear lungs on exam now, on bedside u/s she has normal appearing ef with no pericardial effusion and does have mild b lines on lung u/s. Will trial lasix while second troponin pending there are problems with the analyzer so troponin taking some time and still not back, she is stable and feels much better after lasix and has urinated multiple times, no longer has any symptoms and stable vitals. If second trop negative plan for d/c and outpatient follow up with pcp, did discuss return precautions at length with the patient and she verbalized understanding Differential Diagnosis Differential Diagnosis: afib, pneumonia, covid Medical Records Medical records reviewed: Yes I reviewed the patient's medical records. Imaging Data Radiologic Study: Attestation: I personally reviewed and interpreted this imaging study as follows: Imaging: X-Ray Radiologist's impression: no acute findings Lab Data Lab results reviewed: Yes I reviewed the patient's lab results. ECG Data Attestation: I personally reviewed and interpreted this ECG (s) as follows: Prior ECG tracings: available for review Interpretation: sinus rhythm, rate of 68, pr 149, no acute st t wave ischemic findings HPI General Mode of arrival: ambulatory . Date/Time Provider Initiated Documentation: 02/12/23 12:39 . Limitations to Documentation: no limitations . Information obtained by: patient . History of Present Illness 73 year old F presents to the emergency department with the chief complaint of cough, described as moderate, Patient started experiencing this week(s) (3) and it has been constant. No relieving factors improve symptom(s), No exacerbating factors reported . Patient notes shortness of breath; denies fever/chills. Patient did receive the following treatments prior to arrival, none Related Data Home Medications Medication Instructions Recorded Confirmed apixaban 5 mg tablet (Eliquis) 5 mg PO BID #180 tab-caps 11/18/18 02/12/23 cholecalciferol (vitamin D3) 25 25 mcg PO DAILY 11/10/20 02/12/23 mcg (1,000 unit) capsule lovastatin 40 mg tablet 40 mg PO DAILY 11/10/20 02/12/23 meclizine 25 mg tablet 25 mg PO TID PRN 01/15/21 02/12/23 diltiazem HCl 300 mg capsule,24 300 mg PO DAILY 03/04/22 02/12/23 hr,extended release norethindrone acetate 5 mg tablet 5 mg PO BID #60 tabs 01/15/23 02/12/23 (Aygestin) furosemide 20 mg tablet (Lasix) 20 mg PO DAILY #14 tabs 02/12/23 Previous Rx's Medication Instructions Recorded apixaban 5 mg tablet (Eliquis) 5 mg PO BID #180 tab-caps 11/18/18 norethindrone acetate 5 mg tablet 5 mg PO BID #60 tabs 01/15/23 (Aygestin) furosemide 20 mg tablet (Lasix) 20 mg PO DAILY #14 tabs 02/12/23 Allergies Allergy/AdvReac Type Severity Reaction Status Date / Time alendronate sodium Allergy Intermediate Verified 02/12/23 12:49 contact metal agent Allergy Unknown Verified 02/12/23 12:49 General Stated Complaint: Chest Pain AMANDA: 3 Review of Systems All systems reviewed & are unremarkable except as noted in HPI and below Constitutional Constitutional: Denies chills, Denies fever(s) and Denies weakness Cardiovascular Cardiovascular: Denies chest pain Gastrointestinal Gastrointestinal: Denies abdominal pain, Denies nausea and Denies vomiting Integumentary/Breasts Skin/Breast: Denies rash Neurologic Neurologic: Denies weakness PFSH All Active Problems (Updated 02/12/23 @ 15:13 by Arie Casillas MD) Shortness of breath (Acute) Thickened endometrium (Acute) Postmenopausal bleeding (Acute) Postmenopausal bleeding with thickened endometrium. Benign endometrial sampling. Would recommend progestational agent for 3 months and reevaluate with ultrasound. 12/2022. Shortness of breath (Acute) Sleep apnea, obstructive (Chronic) Heart palpitations (Acute) Hypomagnesemia (Acute) Acute dyspnea (Acute) Prediabetes (Acute) Hyperlipidemia (Acute) Functional tremor (Acute) Abnormal mammogram (Acute) Eczema (Acute) Snoring (Acute) Screening for colon cancer (Acute) Medical History BMI 36.0-36.9,adult Chest pain Diverticulosis Former smoker GERD (gastroesophageal reflux disease) Granuloma annulare Hx of adenomatous colonic polyps Impaired fasting glucose Low back pain Obesity Osteoporosis Paroxysmal atrial fibrillation Pt has postponed cards f/u until the Fall 2016 ( doesnt have respite care for boarders) Psoriasis Vaginal atrophy Vaginal Pap smear with ASC-US Vertigo Family History Mother Heart murmur Father Coronary artery disease Heart disease heart attack Sister Heart disease heart attack Brother Heart disease heart attack Social History Smoking/Tobacco Use Status: Former Tobacco Use tobacco type: cigarettes Quit Date: 11/24/05 Pack-years: 60 Tobacco: How many years used: 20 Smoking risk assessment performed?: Yes Alcohol Intake: never Drug use: Never Substance use type: does not use Household members: friend(s) Housing: house Number of Children: 3 number of grandchildren: 3 Pets and animals: Yes Pets and animals: cat(s) and other Details: rabbits What type of physical activity do you participate in: walking Seatbelt use: always Do you feel safe at home: Yes Do you feel safe in your relationship?: Yes Exam Const General: no acute distress Orientation: alert HENMT Head: normal to inspection Ears: external ears normal General nose exam: external nose normal Mouth: moist mucous membranes Eyes General: appearance normal, both eyes and all related structures Neck Neck: normal visual inspection Resp Effort & Inspection: normal respiratory effort and able to speak in complete sentences Auscultation: wheezes Cardio Jugular venous pressure: no JVD Rate: regular rate Heart Sounds: no murmurs GI Palpation: soft and nontender Skin General skin exam: no rashes or lesions noted Neuro General: patient alert and patient oriented x3 Extrem General: normal to inspection, capillary refill normal, pedal edema present and no calf tenderness Psych Mental Status: mental status grossly normal Course Vital Signs Vital signs: Vital Signs Temperature 36.7 C 02/12/23 12:42 Pulse 71 02/12/23 12:42 Respiratory Rate 18 02/12/23 12:42 Blood Pressure 142/68 H 02/12/23 12:42 Pulse Oximetry 97 02/12/23 12:42 Temperature 36.7 C 02/12/23 12:42 Temperature Source Tympanic 02/12/23 12:42 Pulse 71 02/12/23 12:42 Respiratory Rate 18 02/12/23 12:42 Respiratory Effort Short of Breath 02/12/23 12:48 Blood Pressure 142/68 H 02/12/23 12:42 Blood Pressure Position Sitting 02/12/23 12:42 Pulse Oximetry 97 02/12/23 12:42 Oxygen Delivery Method Room Air 02/12/23 12:42 Oxygen Flow Rate 0 02/12/23 12:42 Pain Level 2 02/12/23 12:42
[2023-02-12 13:16] LABS: Abs Immature Grans 0.05 10^3/uL (0.0-0.06); Absolute Basophil Count 0.04 10^3/uL (0.0-0.2); Absolute Eosinophil Count 0.21 10^3/uL (0.0-0.7); Absolute Lymphocyte Count 2.62 10^3/uL (1.2-3.4); Absolute Monocyte Count 0.81 10^3/uL (0.1-0.8); Absolute Neutrophil Count 6.87 10^3/uL (1.2-6.7); Basophils % 0.4; HCT 44.1 % (36.0-46.0); HGB 14.6 g/dL (11.2-15.7); Immature Grans % 0.5; Lymphocytes % 24.7; MCH 29.3 pg (27.0-33.0); MCHC 33.1 % (32.0-36.0); MCV 89 fL (80-95); Monocytes % 7.6; Neutrophils % 64.8; Platelet Count 339 10^3/uL (130-400); RBC 4.98 10^6/uL (3.93-5.22); RDW 12.6 % (11.7-14.6); RDW-SD 41.3 fL
[2023-02-12] MEDS: Albuterol/Ipratropium 3 ML UPD VIAL UPD (13:24)
[2023-02-12 13:30] LABS: PTT Activated 24.3 sec (21.5-31.9)
[2023-02-12 13:37] LABS: ALT 19 U/L (14-59); AST 10 U/L (15-37); Albumin 3.5 g/dL (3.4-5.0); Alkaline Phosphatase 81 U/L (46-116); Anion Gap 7.9 mmol/L (3-11); BUN 13 mg/dL (7-18); Bilirubin, Total 0.3 mg/dL (0.2-1.0); CO2 27.1 mmol/L (21.0-32.0); CREATININE 1.1 mg/dL (0.55-1.02); Calcium 9.4 mg/dL (8.5-10.1); Chloride 107 mmol/L (98-107); Estimated GFR 53.72 (mL/min/1.73m2); Glucose 131 mg/dL (74-106); Magnesium 1.9 mg/dL (1.8-2.4); NT-proBNP 165 pg/mL (<300); Potassium 4.2 mmol/L (3.5-5.1); Sodium 142 mmol/L (136-145); Troponin I < 50 ng/L (<or=60)
[2023-02-12] MEDS: Furosemide 20 MG/2 ML VIAL IVP (15:06)
[2023-02-12 15:29] LABS: COVID-19 PCR Negative (Negative); Influenza A PCR Negative (Negative); Influenza B PCR Negative (Negative); RSV PCR Negative (Negative); Source Nasopharynx
[2023-02-12 15:52] LABS: Troponin I < 50 ng/L (<or=60)
== END 2023-02-13 16:17 | disposition home or self-care (01) ==
PROVIDERS: Emergency Provider Emergency Medicine; PCP Nurse Practitioner Family
DX: R06.02 Shortness of breath (principal); I10 Essential (primary) hypertension; I48.91 Unspecified atrial fibrillation; Z79.01 Long term (current) use of anticoagulants; Z20.822 Contact with and (suspected) exposure to COVID-19; R06.2 Wheezing; Z87.891 Personal history of nicotine dependence
CPT/HCPCS: 36415; 80053; 87637; 93005; 94640; 96374; 99284; 99285; 71045; 83735; 83880; 84484; 85025; 85610; 85730; 93010; J1941; J7620

== ENCOUNTER 2023-02-24 15:57 | Outpatient (REF) | payer MEDICARE, SELFPAY ==
[2023-02-24 19:29] LABS: Anion Gap 7.3 mmol/L (3-11); BUN 13 mg/dL (7-18); CO2 27.7 mmol/L (21.0-32.0); Calcium 9.7 mg/dL (8.5-10.1); Chloride 103 mmol/L (98-107); Estimated GFR 60.23 (mL/min/1.73m2); Glucose 120 mg/dL (74-106); Potassium 4.2 mmol/L (3.5-5.1); Sodium 138 mmol/L (136-145); TSH (W/Ref FT4) 1.55 uIU/mL (0.36-3.74)
== END 2023-02-24 15:58 | disposition home or self-care (01) ==
LOC: NCHCN 15:57
PROVIDERS: PCP Nurse Practitioner Family; Visit Provider Nurse Practitioner Family
DX: R06.09 Other forms of dyspnea (principal); R42 Dizziness and giddiness
CPT/HCPCS: 80048; 84443

== ENCOUNTER 2023-03-12 16:34 | Outpatient (REF) | payer MEDICARE, MEDICAID, SELFPAY ==
[2023-03-12 20:44] LABS: ESR 9 mm/hr (0-30)
[2023-03-12 20:45] LABS: HCT 44.8 % (36.0-46.0); HGB 14.6 g/dL (11.2-15.7); MCH 29.2 pg (27.0-33.0); MCHC 32.6 % (32.0-36.0); MCV 90 fL (80-95); MPV 10.4 fL (8.0-11.0); Platelet Count 331 10^3/uL (130-400); RDW 12.8 % (11.7-14.6); RDW-SD 42.1 fL; WBC 10.98 10^3/uL (4.4-10.8)
[2023-03-12 20:53] LABS: C-Reactive Protein 0.21 mg/dL (0.0-0.3)
== END 2023-03-12 16:35 | disposition home or self-care (01) ==
LOC: NCHCN 16:34
PROVIDERS: PCP Nurse Practitioner Family; Visit Provider Nurse Practitioner Family
DX: N95.0 Postmenopausal bleeding (principal); M54.59 Other low back pain; M85.88 Other specified disorders of bone density and structure, other site
CPT/HCPCS: 85027; 85652; 86140

== ENCOUNTER 2023-03-27 09:37 | Outpatient (REF) | payer MEDICARE, MEDICAID, SELFPAY ==
[2023-03-27 17:00] LABS: ALT 32 U/L (14-59); AST 22 U/L (15-37); HDL Cholesterol 29 mg/dL (40-60); LDL CHOLESTEROL 119 mg/dL (<100)
[2023-03-27 17:01] LABS: Hemoglobin A1C 6.1 % (<5.7)
[2023-03-27 18:18] LABS: Creatine Kinase 56 U/L (26-192)
== END 2023-03-27 09:38 | disposition home or self-care (01) ==
LOC: NCHCN 09:37
PROVIDERS: PCP Nurse Practitioner Family; Visit Provider Nurse Practitioner Family
DX: I10 Essential (primary) hypertension (principal); R73.09 Other abnormal glucose; R06.02 Shortness of breath; R05.1 Acute cough
CPT/HCPCS: 82550; 83721; 83036; 83718; 84450; 84460

== ENCOUNTER 2023-04-14 01:28 | Outpatient (CLI) | payer MEDICARE, MEDICAID, SELFPAY ==
--- NOTE | 2023-04-14 07:00 | DI.US_ITS ---
Exam(s) US PELVIS TRANSVAGINAL EXAM: US PELVIS TRANSVAGINAL CLINICAL HISTORY: check stripe,postmenopausal bleeding,thickened endometrium, r93.89,n95.0. TECHNIQUE: Transabdominal and transvaginal pelvic ultrasound was performed using standard protocol. COMPARISON: US US PELVIS TRANSVAGINAL from 12/09/2022 FINDINGS: UTERUS: Position: Anteverted. Size: 9.3 long by 2.9 AP by 4.0 transverse cm Endometrium: 2.3 cm. There is a heterogeneous appearance to the endometrium measuring up to 2.8 x 1.4 x 2.2 cm centered within the fundal endometrium. There is some fluid within the fundal endometrial canal. Myometrium: Unremarkable. Cervix: Unremarkable. OVARIES: The ovaries were not visualized on the current examination. No adnexal masses are seen. CUL-DE-SAC: Free fluid: None. Other: None. IMPRESSION: 1. Heterogeneous 2.8 x 1.4 x 2.2 cm masslike area in the fundal endometrium. Neoplasm or polyp canno t be excluded. An MRI may be considered for further evaluation. Endometrial biopsy should also be c onsidered. 2. The ovaries were not visualized on the current examination. Unexpected findings DATA REPOSITORY:
== END 2023-04-14 01:48 ==
PROVIDERS: PCP Nurse Practitioner Family; Visit Provider Obstetrics & Gynecology
DX: N95.0 Postmenopausal bleeding (principal); R93.89 Abnormal findings on diagnostic imaging of other specified body structures
CPT/HCPCS: 76830; 76856

== ENCOUNTER 2023-04-28 03:31 | Outpatient (CLI) | payer MEDICARE, MEDICAID, SELFPAY ==
[2023-04-28 10:18] LABS: HCT 49.7 % (36.0-46.0); HGB 16.2 g/dL (11.2-15.7); MCH 29.2 pg (27.0-33.0); MCHC 32.6 % (32.0-36.0); MCV 90 fL (80-95); MPV 10.2 fL (8.0-11.0); Platelet Count 360 10^3/uL (130-400); RBC 5.55 10^6/uL (3.93-5.22); RDW 12.9 % (11.7-14.6); RDW-SD 42.8 fL; WBC 8.69 10^3/uL (4.4-10.8)
[2023-04-28 10:38] LABS: Anion Gap 7.5 mmol/L (3-11); BUN 10 mg/dL (7-18); CO2 26.5 mmol/L (21.0-32.0); CREATININE 0.9 mg/dL (0.55-1.02); Calcium 9.3 mg/dL (8.5-10.1); Chloride 104 mmol/L (98-107); Estimated GFR 68.35 (mL/min/1.73m2); Glucose 100 mg/dL (74-106); Potassium 4.8 mmol/L (3.5-5.1); Sodium 138 mmol/L (136-145)
== END 2023-04-28 03:32 | disposition home or self-care (01) ==
LOC: LBO 03:31
PROVIDERS: Obstetrics & Gynecology Gynecology; PCP Nurse Practitioner Family; Visit Provider Obstetrics & Gynecology
DX: Z01.812 Encounter for preprocedural laboratory examination (principal)
CPT/HCPCS: 36415; 80048; 85027; 86850; 86900; 86901

== ENCOUNTER 2023-04-30 11:18 | Day surgery (SDC) | payer MEDICARE, MEDICAID, SELFPAY ==
[2023-04-30 11:47] VITALS: BP 134/74; PULSE 72; RESP 16; TEMP 36.3; O2SAT 97
[2023-04-30] MEDS: Lactated Ringers 1,000 ML 125 ML IV (12:08)
--- NOTE | 2023-04-30 12:21 | W.ANESPRE ---
General Info Date of Service Date Performed: 04/30/23 Height: 4 ft 11 in Weight: 84 kg Body Mass Index (BMI): 37.3 Surgical Procedure: Operation Date: 04/30/23 14:25 Proposed Procedure Side Surgeon p Dilation & Curettage with Hysteroscopy Susan Rosario DO Meds Allergies and Home Medications Allergies Allergy/AdvReac Type Severity Reaction Status Date / Time contact metal agent Allergy Unknown Skin Rash Verified 04/30/23 11:43 alendronate sodium AdvReac Intermediate Pt. states Verified 04/30/23 11:43 she got real sick to her stomach and very tired Home Medication Medication Instructions Recorded apixaban 5 mg tablet (Eliquis) 5 mg PO BID #180 tab-caps 11/18/18 cholecalciferol (vitamin D3) 25 25 mcg PO DAILY 11/10/20 mcg (1,000 unit) capsule lovastatin 40 mg tablet 40 mg PO DAILY 11/10/20 meclizine 25 mg tablet 25 mg PO TID PRN 01/15/21 diltiazem HCl 300 mg capsule,24 300 mg PO HS 03/04/22 hr,extended release norethindrone acetate 5 mg tablet 5 mg PO BID #60 tabs 04/15/23 (Aygestin) acetaminophen 500 mg capsule 1,000 mg PO Q6H PRN #60 caps 04/30/23 Current Visit Medications: Current Medications Generic Name Dose Route Start Last Admin Trade Name Freq PRN Reason Stop Dose Admin Ringer's Solution 1,000 mls @ 125 mls/hr 04/30/23 06:00 04/30/23 12:08 IV 05/29/23 23:59 125 mls/hr INFUSION CARLY Administration IV Miscellaneous Supplies 1 each 04/30/23 06:00 Iv Access IV 05/29/23 23:59 DIRECTED CARLY Sodium Chloride 0 ml 04/30/23 06:00 Normal Saline Flush 10 Ml Syr IV 05/29/23 23:59 PRN PRN Sodium Chloride 0 ml 04/30/23 06:00 Normal Saline 10 Ml Vial IJ 05/29/23 23:59 DIRECTED PRN Sterile Water 0 ml 04/30/23 06:00 Water,Injection,Sterile 10 Ml Vial IJ 05/29/23 23:59 DIRECTED PRN PFSH Active Problems Active Problems: Problem Status Onset Code Pre-operative laboratory examination Z01.812 Thickened endometrium R93.89 Postmenopausal bleeding N95.0 Shortness of breath R06.02 Sleep apnea, obstructive G47.33 Heart palpitations R00.2 Hypomagnesemia E83.42 Acute dyspnea R06.00 Prediabetes R73.03 Hyperlipidemia E78.5 Functional tremor F45.8 Abnormal mammogram R92.8 Eczema L30.9 Snoring R06.83 Screening for colon cancer Z12.11 Medical History Medical History BMI 36.0-36.9,adult Chest pain Diverticulosis Former smoker GERD (gastroesophageal reflux disease) Granuloma annulare Hx of adenomatous colonic polyps Impaired fasting glucose Low back pain Obesity Osteoporosis Paroxysmal atrial fibrillation Pt has postponed cards f/u until the Fall 2016 ( doesnt have respite care for boarders) Psoriasis Vaginal atrophy Vaginal Pap smear with ASC-US Vertigo Tobacco Smoking/Tobacco Use Status: Former Tobacco Use Alcohol Alcohol Intake: never Substance Use Substance use: Never Substance use type: does not use Vital Signs and Lab Results Vital Signs Most Recent Vital Signs in EMR: Most Recent Vital Signs Temp Pulse Resp BP Pulse Ox 36.3 C L 72 16 134/74 97 04/30/23 11:47 04/30/23 11:47 04/30/23 11:47 04/30/23 11:47 04/30/23 11:47 Lab Results Blood Type / Crossmatch: Patient ABO/Rh O Positive 04/28/23 Antibody Screen NEGATIVE 04/28/23 Complete Blood Count: White Blood Count 8.69 10^3/uL (4.4-10.8) 04/28/23 09:50 Red Blood Count 5.55 10^6/uL (3.93-5.22) H 04/28/23 09:50 Hemoglobin 16.2 g/dL (11.2-15.7) H 04/28/23 09:50 Hematocrit 49.7 % (36.0-46.0) H 04/28/23 09:50 Platelet Count 360 10^3/uL (130-400) 04/28/23 09:50 Complete Metabolic Panel: Sodium 138 mmol/L (136-145) 04/28/23 09:50 Potassium 4.8 mmol/L (3.5-5.1) 04/28/23 09:50 Chloride 104 mmol/L (98-107) 04/28/23 09:50 Carbon Dioxide 26.5 mmol/L (21.0-32.0) 04/28/23 09:50 BUN 10 mg/dL (7-18) 04/28/23 09:50 Creatinine 0.9 mg/dL (0.55-1.02) 04/28/23 09:50 Est GFR (CKD-EPI 2020) 68.35 (mL/min/1.73m2) 04/28/23 09:50 Calcium 9.3 mg/dL (8.5-10.1) 04/28/23 09:50 Glucose 100 mg/dL (74-106) 04/28/23 09:50 Liver Function Panel: No Data to Display Coagulation Panel: No Data to Display Cardiac Panel: No Data to Display Arterial Blood Gas: No Data to Display Venous Blood Gas: No Data to Display Pancreas Panel: No Data to Display Thyroid Panel: No Data to Display Infectious Disease: No Data to Display Blood Cultures: No Data to Display Toxicology Panel: No Data to Display Imaging and Studies Imaging and Studies Study information below may be from another EMR and interpreted by another provider. Please see original notes in EMR for more complete details. EKG Summary: 02/13: sinus rhythm. Stress Test Summary: 01/14: 7 mets, no symptoms of ischemia. Echocardiogram Summary: 03/14: LVEF 60%, normal RV fxn. Pulmonary Function Summary: 07/14: slightly decreased expiratory pressure. Anesthesia Assessment and Plan Anesthesia History Personal History: No History of Anesthesia Complications Family History: No Family History of Anesthesia Complications Exercise Tolerance Exercise Tolerance: Metabolic Equivalents>4 Cardiac & Pulmonary Exam Cardiac Exam: Normal S1/S2 Heart Sounds Pulmonary Exam: Clear Bilateral Breath Sounds Implantable Cardiac Device Does patient have a Pacemaker or an ICD?: No Airway Exam Known Difficult Airway: No Mallampati Class: 3 Mouth Opening: Normal (> 3cm) Thyromental Distance: Greater than 3 cm Neck Range of Motion: Full ROM Neck Circumference: Thick Teeth Condition: Generalized Poor Dentition ASA Classification ASA Score: ASA 3 Emergency Case?: No NPO Status NPO Status: NPO Clears >2 hours, Solids >8 hours Anesthesia Plan Resuscitation Status: Full Code Anesthesia Technique: General Anesthesia Airway Planned: Natural Airway Monitors Used: Standard Monitors Preoperative Comments:: 73 yo female for endometrial biopsy. Sig PMHx: afib (apixaban, dilt), CHRISTOPHER, SOB, preDM, GERD, former smoker, never EtOH.
--- NOTE | 2023-04-30 14:30 | ENDO_PTH ---
PATIENT: Lucero Arthur LOC: [facility] U#:[id number] AGE/SX: 73/F ROOM: RE04/30/[address]: Susan Rosario DO : 1950 BED: DIS: 04/30/2023 SPEC #: [id number] RECD: 04/30/23 17:53 STATUS: FAIZAN RE #: [id number] BREE: 04/30/23 14:[address]: Susan Rosario DEPT: Surgical Specimen RECD BY: Klaudia Kwan ENTERED: 04/30/23 17:54 SP TYPE: Endo OTHR DR: Dorita Zimmerman Tissues: 1 - ENDOCERVICAL BX/CURRETTE 2 - ENDOMETRIUM BX/CURRETTE Procedures: GROSS AND MICRO LEVEL 4 Comments: [id number]
--- NOTE | 2023-04-30 14:38 | W.PM.OP ---
Date of service: 04/30/23 Time of Service: 14:38 Operative Note Operative Note DATE OF PROCEDURE: 04/30/23 PRE-OP DIAGNOSIS: Thickened endometrium, postmenopausal bleeding POST-OP DIAGNOSIS: same PROCEDURE: Fractional dilation and curettage SURGEON: Susan Rosario ANESTHESIA TYPE: General:No Airway Refer to Anesthesia Record ESTIMATED BLOOD LOSS: 5 PATHOLOGY: other (1. Endocervical curettage 2. Endometrial curettage) COMPLICATIONS: None Patient was transported to: same day Patient's condition: stable Indications: Thickened endometrium, postmenopausal bleeding Findings: Moderate tissue from both the endocervix, and endometrium Procedure Description: After full informed consent was obtained, patient was taken the operating suite. Pneumatic compression stockings were placed for DVT prophylaxis. No antibiotic prophylaxis was warranted. She had an IV running and in place. She is placed in dorsal supine position and general anesthesia administered via natural airway. She was then placed in a modified dorsolithotomy position and prepped and draped in the usual sterile fashion. Exam under anesthesia revealed a uterus that was midline and mobile, approximately 6 weeks size. There is no evidence of enlargement or adnexal mass noted though somewhat limited due to body habitus. In light of the fact that patient is on Eliquis and anticoagulated and in order to minimize her anesthetic risk, fractional dilation and curettage only was performed. Speculum was inserted into the vaginal vault and an Allis clamp used to grasp the anterior lip of the cervix. Cervical os dilated sequentially to the point that according for can curette and a small banjo curette could be passed into the endocervix and endometrium respectively. Initial curettage was performed of the endocervix with a Kevorkian curette. Second curettage of the endometrium was performed with a small banjo curette. The uterus felt smooth and regular without masses noted. With adequate sampling of both the endocervix and endometrium, the procedure was then terminated. Allis clamp and speculum were removed from the vaginal vault and the patient returned to the dorsal supine position and awoke from anesthesia with ease. She was taken to the same-day surgical area for recovery and discharge home. EBL: 5 mL Complications: None apparent Findings: Moderate tissue of the endometrium and endocervix Pathology: 1. Endocervical curettage 2. Endometrial curettage Fluids: Crystalloid per anesthesia.
[2023-04-30 14:45] VITALS: BP 146/77; PULSE 74; RESP 16; TEMP 36.2; O2SAT 95
[2023-04-30 15:14] VITALS: BP 142/72; PULSE 73; RESP 16; TEMP 36.5; O2SAT 98
[2023-04-30 15:37] VITALS: BMI 37.3
--- NOTE | 2023-04-30 15:37 | W.ANESPOSTOP ---
Postoperative Evaluation Date, Time and Location Date Performed: 04/30/23 Time Performed: 15:37 Patient Location: Day Surgery Unit Vital Signs Most Recent Imported Vital Signs: Most Recent Vital Signs Temp Pulse Resp BP Pulse Ox 36.5 C 73 16 142/72 H 98 04/30/23 15:14 04/30/23 15:14 04/30/23 15:14 04/30/23 15:14 04/30/23 15:14 Pain Score Most Recent Pain Score: Most Recent Pain Score Pain Level 0 04/30/23 15:14 Assessment Mental Status: Awake (Alert & Oriented to Patient Baseline) Airway and Respiratory Function: Patent airway with normal (patient baseline) respiratory exam Cardiovascular Function: Hemodynamically Stable Hydration Status: Adequately Hydrated Nausea & Vomiting: No Nausea or Vomiting Pain: Pt. Denies Any Pain Peripheral Nerve Block: Patient did not receive a nerve block
== END 2023-04-30 15:38 | disposition home or self-care (01) ==
PROVIDERS: PCP Nurse Practitioner Family; Visit Provider Obstetrics & Gynecology
PROC: 0UDB8ZZ Extraction of Endometrium, Via Natural or Artificial Opening Endoscopic (ICD-10-PCS; CPT 58558; principal; 2023-04-30 14:15)
DX: N95.0 Postmenopausal bleeding (principal); R93.89 Abnormal findings on diagnostic imaging of other specified body structures; I48.0 Paroxysmal atrial fibrillation; Z79.01 Long term (current) use of anticoagulants; N85.8 Other specified noninflammatory disorders of uterus
CPT/HCPCS: 58120; 88305; J2405; J2704

== ENCOUNTER → 2023-08-19 00:55 | Outpatient (CLI) | payer MEDICARE, MEDICAID, SELFPAY ==
--- NOTE | 2023-08-19 | DI.CT_ITS ---
Exam(s) CT ABDOMEN WO/W EXAM: CT ABDOMEN WO/W CLINICAL HISTORY: LT ADRENAL NODULE, E27.8 TECHNIQUE: Imaging Protocol: Axial computed tomography images with coronal and sagittal reformatted images were created and reviewed CONTRAST MATERIAL: Intravenous: Omnipaque 350 contrast volume:100 mL Oral: No COMPARISON: CT CT CHEST W from 03/13/[address] ABDOMEN PELVIS W from 03/05/2022 FINDINGS: ABDOMEN: Lung Bases: Normal where visualized. Liver: Normal density. No measurable mass. Portal, Superior Mesenteric, and Splenic Veins: Unremarkable. Gallbladder and Biliary Tract: No radiodense calculus or dilation. Pancreas: Normal density, no abnormal calcifications or inflammatory process. Spleen: Normal. Adrenals: The right adrenal gland is unremarkable. There is a 2.5 x 2.5 cm left adrenal mass. It di splays -6 Hounsfield units on the noncontrast examination, 49 Hounsfield units on the portal venous p hase and 8 Hounsfield units on the 15 minute delayed images. This results in absolute washout of 75 percent. This is highly suggestive of an adrenal adenoma. Kidneys: Normal size, contour and axis. There is a nonobstructing 2 mm stone in the midpole of the le ft kidney. There is a 3 mm hypodensity in the inferior pole of the left kidney. It is too small for further characterization. No follow-up is recommended. Abdominal Aorta: Abdominal portion non-dilated. Atherosclerosis. Bowel: Diverticulosis of the colon, but no evidence of acute diverticulitis. There is no evidence of bowel obstruction or bowel wall thickening. Peritoneal Cavity: No ascites, collection or mesenteric inflammatory response. No free air. Lymph Nodes: Within normal limits. Bones: Within normal limits for the patient's age. Soft Tissues: Unremarkable. IMPRESSION: 2.5 cm left adrenal mass highly suggestive of an adrenal adenoma. RADIATION DOSE DELIVERED: 1,728.13mGy.cm Total DLP DATA REPOSITORY: All CT scans at this facility are submitted to the National Radiology Data Registry (NRDR) Dose Index Registry (DIR) with the [employer] (ACR). RADIATION OPTIMIZATION: All CT scans at this facility use at least one of these dose optimization te chniques: automated exposure control; mA and/or kV adjustment per patient size (includes targeted exa ms where dose is matched to clinical indication); or iterative reconstruction.
[2023-08-19 08:43] LABS: CREATININE 0.9 mg/dL (0.55-1.02); Estimated GFR 68.35 (mL/min/1.73m2)
[2023-08-19] MEDS: Normal Saline - Diluent 50 ML VIAL IJ (08:59)
[2023-08-19] MEDS: Omnipaque 350 MG/ML 100 ML BTL IJ (09:00)
[2023-08-19] MEDS: Normal Saline Flush 10 ML SYR IVP (09:01)
== END ==
PROVIDERS: PCP Nurse Practitioner Family; Visit Provider Nurse Practitioner Family
DX: E27.8 Other specified disorders of adrenal gland (principal)
CPT/HCPCS: 74170; 82565; J3490

== ENCOUNTER → 2023-08-21 04:06 | Outpatient (CLI) | payer MEDICARE, MEDICAID, SELFPAY ==
--- NOTE | 2023-08-21 | DI.DEXA_ITS ---
Exam(s) XR DEXA BONE DENSITY W/WO [place]RISTIANA EXAM: XR DEXA BONE DENSITY W/WO [place]ST[place]NA CLINICAL HISTORY: SCREENING FOR OSTEOPOROSIS IN POSTMENOPAUSAL WOMAN,Z78.0,COMPARE WITH 2019 TECHNIQUE: Routine DEXA evaluation of the lumbar spine, hip, or forearm. COMPARISON: Prior DEXA scan December 2018 FINDINGS: Performed on a HoloPrive[employer] unit. Lateral image: No compression fracture evident. Lumbar Spine total T-score: -2.3. Prior reading in 2019 was -3.0 Hip total T-score:-1.6. Prior 2019 reading was -1.7 Independent reading at the level of the femoral neck yields T-score of -2.3 IMPRESSION: Bone mineral density measures in the osteopenia range. Fracture risk is moderate. Note: Any spine fracture indicates 5x risk for subsequent spine fracture and 2x risk for subsequent h ip fracture. World Health Organization criteria for BMD interpretation classify patients: Normal...... T- Score at or above -1.0 Osteopenic... T- Score between -1.0 and -2.5 Osteoporosis... T-Score at or below -2.5
== END ==
PROVIDERS: PCP Nurse Practitioner Family; Visit Provider Nurse Practitioner Family
DX: Z78.0 Asymptomatic menopausal state (principal); Z13.820 Encounter for screening for osteoporosis
CPT/HCPCS: 77080

== ENCOUNTER → 2023-09-05 03:15 | Outpatient (CLI) | payer MEDICARE, MEDICAID, SELFPAY ==
--- NOTE | 2023-09-05 06:45 | DI.US_ITS ---
Exam(s) US PELVIS TRANSVAGINAL EXAM: US PELVIS TRANSVAGINAL CLINICAL HISTORY: check stripe,postmenopausal bleeding,n95.0 TECHNIQUE: Transabdominal and transvaginal imaging was performed using standard protocol. COMPARISON: CT CT ABDOMEN PELVIS W from 03/05/2022 US US PELVIS TRANSVAGINAL from 12/09/2022 US US PELVIS TRANSVAGINAL from 04/14/2023 FINDINGS: There is limited visibility of the fundus of the uterus. UTERUS: Anteverted. 8.8 x 5.2 x 5.4 cm. Endometrium: Abnormally thickened and heterogeneous, nearly 2 cm. No fluid seen on today's exam. Myometrium: 2 areas low echogenicity are question the: The anterior and 1 in the posterior aspect of the uterus. There is no abnormalities seen on the prior exam the findings could represent artifacts. Shadowing from calcification or fibroid also possible. Cervix: Unremarkable. OVARIES: Not visualized. CUL-DE-SAC: Free fluid: None. IMPRESSION: 1. Abnormally thickened, heterogeneous endometrium. Two areas of low attenuation are questioned in t he uterus which are likely artifactual.. 2. Ovaries not visualized. Appeared normal on prior CT abdomen pelvis. DATA REPOSITORY:
== END ==
PROVIDERS: PCP Nurse Practitioner Family; Visit Provider Obstetrics & Gynecology
DX: N95.0 Postmenopausal bleeding (principal); N85.8 Other specified noninflammatory disorders of uterus
CPT/HCPCS: 76830; 76856

== ENCOUNTER → 2023-09-23 13:05 | Outpatient (BNVA) | payer MEDICARE, MEDICAID, SELFPAY | PROVIDERS: PCP Nurse Practitioner Family; Referring Provider Nurse Practitioner Family; Visit Provider Psychiatry & Neurology Neurology | DX: G25.0 Essential tremor (principal); F45.8 Other somatoform disorders | CPT/HCPCS: 99213 ==

== ENCOUNTER 2023-12-03 04:17 | Outpatient (CLI) | payer MEDICARE, MEDICAID, SELFPAY ==
[2023-12-10 17:10] LABS: Dexamethasone 591 ng/dL
== END 2023-12-03 04:18 | disposition home or self-care (01) ==
LOC: LBO 04:17
PROVIDERS: PCP Nurse Practitioner Family; Visit Provider Internal Medicine
DX: D35.00 Benign neoplasm of unspecified adrenal gland (principal)
CPT/HCPCS: 36415; 80299; 82533

== ENCOUNTER → 2023-12-08 04:45 | Outpatient (CLI) | payer MEDICARE, MEDICAID, SELFPAY ==
--- NOTE | 2023-12-08 07:00 | DI.US_ITS ---
Exam(s) US PELVIS TRANSVAGINAL EXAM: US PELVIS TRANSVAGINAL CLINICAL HISTORY: check stripe and fibroids,postmenopausal bleeding,N95.0,d25.9 TECHNIQUE: Ultrasound of the pelvis was performed both transabdominal and transvaginal. COMPARISON: CT CT ABDOMEN WO/W from 08/19/2023 US US PELVIS TRANSVAGINAL from 09/05/2023 FINDINGS: UTERUS: Nongravid and anteverted. Measures 9 cm length x 5.6 cm AP x 5.6 cm wide. There is an anterior myometrial fibroid measuring 3.3 x 2.8 x 2.4 cm.There is a posterior fibroid ena r the fundus level measuring 3 x 2.4 x 3.3 cm. Endometrial thickness measures 24 mm. And appears heterogeneous. There is no fluid in the endometrial canal. OVARIES: Both ovaries are not able to be identified, similar to the prior ultrasound 09/05/2023. CUL-DE-SAC: No free fluid evident. IMPRESSION: 1. Heterogeneous thickened endometrium again noted. Close follow-up to rule out malignancy recommend ed. 2. Two fibroids, 1 in the anterior myometrium in the other in the posterior myometrium. 3. Ovaries are again not able to be visualized. DATA REPOSITORY:
== END ==
PROVIDERS: PCP Nurse Practitioner Family; Visit Provider Obstetrics & Gynecology
DX: D25.9 Leiomyoma of uterus, unspecified (principal); N95.0 Postmenopausal bleeding
CPT/HCPCS: 76830; 76856

== ENCOUNTER → 2023-12-10 12:49 | Outpatient (BNVA) | payer MEDICARE, MEDICAID, SELFPAY | PROVIDERS: PCP Nurse Practitioner Family; Visit Provider Psychiatry & Neurology Neurology | DX: G25.0 Essential tremor (principal); F45.8 Other somatoform disorders | CPT/HCPCS: 99215 ==

== ENCOUNTER 2023-12-30 15:15 | Outpatient (REF) | payer MEDICARE, MEDICAID, SELFPAY ==
[2023-12-30 12:08] LABS: Creatinine,Urine 104.18 mg/dL
[2023-12-30 12:09] LABS: Creatinine,24hr Ur 1.46 g/24hr (0.60-1.80); Total Volume 1400 ml
[2023-12-31 09:30] LABS: Calcium Urine 10.4 mg/dL (See Note); Calcium Urine 24 hr 146 mg/24hr (100-300); Timed Urine Volume 1400 mL
== END 2023-12-30 15:16 | disposition home or self-care (01) ==
LOC: LBN 15:15
PROVIDERS: PCP Nurse Practitioner Family; Visit Provider Internal Medicine
DX: M81.0 Age-related osteoporosis without current pathological fracture (principal)
CPT/HCPCS: 81050; 82340; 82570

== ENCOUNTER 2024-01-26 14:51 | Outpatient (REF) | payer MEDICARE, MEDICAID, SELFPAY ==
[2024-01-26 15:29] LABS: HCT 50.6 % (36.0-46.0); MCH 29.7 pg (27.0-33.0); MCHC 33.6 % (32.0-36.0); MCV 89 fL (80-95); Platelet Count 331 10^3/uL (130-400); RBC 5.72 10^6/uL (3.93-5.22); RDW 12.8 % (11.7-14.6); RDW-SD 41.7 fL; WBC 11.53 10^3/uL (4.4-10.8)
[2024-01-26 15:53] LABS: Anion Gap 9.8 mmol/L (3-11); BUN 16 mg/dL (7-18); CO2 27.2 mmol/L (21.0-32.0); CREATININE 1.1 mg/dL (0.55-1.02); Chloride 102 mmol/L (98-107); Estimated GFR 53.72 (mL/min/1.73m2); Glucose 148 mg/dL (74-106); Potassium 4.3 mmol/L (3.5-5.1); Sodium 139 mmol/L (136-145)
== END 2024-01-26 14:52 | disposition home or self-care (01) ==
LOC: NCHCN 14:51
PROVIDERS: PCP Nurse Practitioner Family; Visit Provider Nurse Practitioner Family
DX: R42 Dizziness and giddiness (principal); R25.1 Tremor, unspecified; R73.03 Prediabetes; E78.5 Hyperlipidemia, unspecified
CPT/HCPCS: 80048; 85027; 84443

== ENCOUNTER 2024-01-30 12:53 | Outpatient (CLI) | payer MEDICARE, SELFPAY ==
[2024-01-30 09:14] LABS: CREATININE 1.2 mg/dL (0.55-1.02); Estimated GFR 48.39 (mL/min/1.73m2)
[2024-02-02 15:42] LABS: Erythropoietin 1.9 mIU/mL (2.6 - 18.5)
[2024-02-06 13:48] LABS: JAK2 Sequencing Result see interpretation
== END 2024-01-30 12:54 | disposition home or self-care (01) ==
LOC: LBO 12:54
PROVIDERS: PCP Nurse Practitioner Family; Visit Provider Nurse Practitioner Family
DX: R89.9 Unspecified abnormal finding in specimens from other organs, systems and tissues (principal); I48.0 Paroxysmal atrial fibrillation
CPT/HCPCS: 0027U; 36415; 82668; 82565; 85610

== ENCOUNTER → 2024-03-10 08:44 | Outpatient (BNVA) | payer MEDICARE, MEDICAID, SELFPAY | PROVIDERS: PCP Nurse Practitioner Family; Visit Provider Psychiatry & Neurology Neurology | DX: F45.8 Other somatoform disorders (principal); G25.0 Essential tremor | CPT/HCPCS: 99214 ==

== ENCOUNTER → 2024-03-29 08:14 | Outpatient (BNVA) | payer MEDICARE, MEDICAID, SELFPAY | PROVIDERS: PCP Nurse Practitioner Family; Referring Provider Nurse Practitioner Family; Visit Provider Student in an Organized Health Care Education/Training Program | DX: M65.4 Radial styloid tenosynovitis [de Quervain] (principal) | CPT/HCPCS: 20550; 99213; J1010 ==

== ENCOUNTER 2024-05-05 14:35 | Emergency (ER) | payer MEDICARE, MEDICAID, SELFPAY ==
[2024-05-05] VITALS (11 sets, daily range): BP systolic 102–157; BP diastolic 35–84; PULSE 64–77; RESP 14–18; TEMP 36.6–36.9; O2SAT 93–100
--- NOTE | 2024-05-05 14:30 | RT.EKG_ITS ---
APPROVED REPORT Exam: Resting ECG Reason for Exam: Slurred speech Patient Location: E HR:72 bpm ECG Measurements Heart Rate 72 AXIS NE 180 P 37 QRSd 66 QRS -40 QT 363 T 62 QTc 397 Conclusion Sinus rhythm...normal P axis, V-rate 60- 99 Inferior infarct, old...Q >35mS, II III aVF Narrow complex normal sinus rhythm at a rate of 72. Left axis deviation no signs of LVH based on vol tage criteria. Intervals within normal limits. T wave inversion in aVL. No ST segment abnormalitie s. Inferior Q waves. Compared to prior dated last year T wave inversion has replaced T wave flatten ing in aVL. Inferior Q waves are persistent. No acute injury pattern.
--- NOTE | 2024-05-05 14:43 | W.ED.GENAD ---
Discharge Plan Disposition Patient Disposition: Transfer-Acute Inpatient Care Specific Acute Inpt Facility: [facility] Discharge Details Clinical Impression: Acute spontaneous intraparenchymal intracranial hemorrhage, Acute UTI Primary Care Provider: Dorita Samuels ED Provider: Armando Little Home Meds and New Rx's Prescriptions: No Action diltiazem HCl 300 mg capsule,extended release 24 hr 300 mg PO HS Eliquis 5 mg tablet 5 mg PO BID Qty: 180 3RF cholecalciferol (vitamin D3) 25 mcg (1,000 unit) capsule 50 mcg PO DAILY lovastatin 40 mg tablet 40 mg PO DAILY meclizine 25 mg tablet 25 mg PO QID PRN tramadol 50 mg tablet 50 mg PO BID PRN acetaminophen 500 mg tablet 1,000 mg PO Q6H PRN hydromorphone 2 mg tablet 2 mg PO Q4H PRN Patient Comments: TAKE ONE TABLET BY MOUTH EVERY 4 HOURS NEEDED FOR PAIN Discharge Data Discharge Date/Time-TO BE ENTERED AT DEPARTURE: 05/06/24 00:07 HPI General Date/Time Provider Initiated Documentation: 05/05/24 14:39. HPI Narrative: MDM This is a normothermic and not tachycardic 74-year-old female with history of atrial fibrillation recently held anticoagulation with generalized headache left homonymous hemianopsia concerning for the possibility of subacute CVA for which patient will undergo CT scan with neurology consult. My suspicion for large vessel occlusion is low based on fast ED score so I did not obtain CT angiogram of head and neck. No generator use to suggest carbon monoxide toxicity. No recent chiropractic manipulation to suggest increased risk for cervical arterial dissection. No pain out of proportion to suggest necrotizing soft tissue infection. Given nausea and vomiting posterior circulation CVA certainly a possibility. No chest pain so my suspicion is low for aortic dissection. No tonic-clonic activity to suggest seizure so no indication for EEG. No significant vaginal bleeding so my suspicion for acute blood loss anemia is low. No nuchal rigidity nor fevers to suggest meningitis so I do not feel that the patient requires a lumbar puncture. Given worsen headache of life, subarachnoid hemorrhage is certainly on the differential so we will complete CT angiogram of head and neck given onset greater than 6 hours ago. Given age and visual changes giant cell arteritis is certainly in differential. 3:11 PM CBC with leukocytosis. Persistent erythrocytosis. No thrombocytopenia. 3:42 PM Patient has a large right-sided occipital intraparenchymal hemorrhage. There is minimal shift. Patient's GCS remains 15. Given her outpatient use of apixaban will reverse her with fixed dose for factor PCC at 1500 units. I canceled the tele neuro consult and reached out to the transfer center at [facility] to transfer to neurosurgery. Will order fentanyl and acetaminophen for pain. Negative troponin. Comprehensive metabolic panel with no MERLE. Normal LFTs. Normal reassuring TSH. Normal ESR. I canceled the CT angiogram of the patient's head and neck. 6pm I spoke to Dr. Bryan who agreed graciously to accept the patient to step down. I had initially spoken with neurosurgery and they advised consultation with neurology for hospitalization given most likely spontaneous bleed. Patient remains GCS 15. Given size of bleed will send with a medic. Patient did have episode of hypertension with systolic blood pressure of 157 mmHg for which she received 10 mg of labetalol. 9:30 PM Urinalysis nitrite leukoesterase positive. Patient does have dysuria so we will treat with 1 g of ceftriaxone. 11:48 AM Patient had a pansensitive E. coli bacteriuria. I have had health coordinator Teresa fax results down to [facility] where patient remains hospitalized. Chronic conditions affecting the care of the patient: Atrial fibrillation History obtained from an outside historian: Triage note from primary care External record review: [facility] EMR Diagnostic interpretations performed by me: Per my independent interpretation chest x-ray shows: Per my independent interpretation EKG shows: Narrow complex normal sinus rhythm at a rate of 72. Left axis deviation no signs of LVH based on voltage criteria. Intervals within normal limits. T wave inversion in aVL. No ST segment abnormalities. Inferior Q waves. Compared to prior dated last year T wave inversion has replaced T wave flattening in aVL. Inferior Q waves are persistent. No acute injury pattern. ]Medications: labetalol Social determinants of health affecting disposition: N/A Management discussed with: Neurology neurosurgery Treatment/interventions considered: N/A Response to therapies provided: Improved blood pressure in the ED HPI This is a 74-year-old female 12 days sp hysterectomy at [facility] ago arriving to the emergency department via private vehicle in setting of sudden onset headache 3 days ago. Patient reports that she has held her anticoagulants for approximately 4 days around the time of her procedure. She said that she woke up 2 days ago and stood up and had the worst headache of her life. She has had trouble seeing out of her left eye. She has been nauseous and vomiting. She has had minimal vaginal spotting. She had some dysuria but reports that this is to be expected per her gynecology team. She has had no chest pain shortness of breath. No fevers. She does feel that intermittently she has had some slurred speech. No syncope. She has attempted [id number] treatment with acetaminophen. She has also tried tramadol and some opiates. No prior history of similar symptoms. No recent generator exposure. No recent chiropractic manipulation. She has also had visual changes and had difficulty seeing when looking on the left side of her vision with both eyes. Exam General: Well-appearing in no acute distress speaking in complete sentences. Head: Normocephalic, atraumatic. Eye:[Pupils equal, round reactive to light.] Extraocular eye movements intact. No conjunctival injection. No scleral icterus. Ear, nose, mouth, throat: Grossly normal inspection. Normal voice, handling secretions normally. Neck: Trachea midline. Cardiovascular: Well-perfused distal extremities. Respiratory: Nonlabored respiration. Clear lungs bilaterally Gastrointestinal: Nondistended abdomen. Soft nontender Musculoskeletal: No edema. Moving all 4 extremities spontaneously. Skin: Normal for age and race, grossly normal temperature and turgor. No acute rash. Neurologic: GCS 15. Mild right-sided dysmetria. Left-sided homonymous hemianopsia. Otherwise cranial nerves II to XII intact grossly. No facial asymmetry. 5 out of 5 bilateral upper and lower extremity strength. Please see neurology note for complete NIH stroke scale. Psychiatric: Mood and manner are appropriate. Grooming and personal hygiene are appropriate. Related Data Home Medications Medication Instructions Recorded Confirmed apixaban 5 mg tablet (Eliquis) 5 mg PO BID #180 tab-caps 11/18/18 05/05/24 cholecalciferol (vitamin D3) 25 50 mcg PO DAILY 11/10/20 05/05/24 mcg (1,000 unit) capsule lovastatin 40 mg tablet 40 mg PO DAILY 11/10/20 05/05/24 meclizine 25 mg tablet 25 mg PO QID PRN 01/15/21 05/05/24 diltiazem HCl 300 mg capsule,24 300 mg PO HS 03/04/22 05/05/24 hr,extended release tramadol 50 mg tablet 50 mg PO BID PRN 09/18/23 05/05/24 acetaminophen 500 mg tablet 1,000 mg PO Q6H PRN 05/05/24 05/05/24 hydromorphone 2 mg tablet 2 mg PO Q4H PRN 05/05/24 05/05/24 Previous Rx's Medication Instructions Recorded apixaban 5 mg tablet (Eliquis) 5 mg PO BID #180 tab-caps 11/18/18 Allergies Allergy/AdvReac Type Severity Reaction Status Date / Time contact metal agent Allergy Unknown Skin Rash Verified 05/05/24 15:48 alendronate sodium AdvReac Intermediate Pt. states Verified 05/05/24 15:48 she got real sick to her stomach and very tired General AMANDA: 3 Medical Decision Making Quality:SDOH Health Related Social Needs: No Data to Display Critical Care Time Critical Care Time Critical Care Time: Yes Total Critical Care Time: 45 Attestation: Bedside management and consultation with specialists [facility] All Active Problems (Updated 05/05/24 @ 21:32 by Armando Little MD) Acute UTI (Acute) Acute spontaneous intraparenchymal intracranial hemorrhage (Acute) De Quervain's tenosynovitis, right (Acute) Injection: 03/29/2024 Adrenal tumor (Acute) Essential tremor (Acute) Uterine fibroid (Acute) Pre-operative laboratory examination (Acute) Thickened endometrium (Acute) Postmenopausal bleeding (Acute) Postmenopausal bleeding with thickened endometrium. Benign endometrial sampling. Would recommend progestational agent for 3 months and reevaluate with ultrasound. 12/2022. Hysteroscopy with dilation curettage performed. Benign pathology. Continue at this point on Aygestin 5 mg daily. Follow-up 09/15. U/S with ?2 cm endometrium, though may be fibroid. Will D/C progesterone and repeat U/S 11/2023 Shortness of breath (Acute) Sleep apnea, obstructive (Chronic) Heart palpitations (Acute) Hypomagnesemia (Acute) Acute dyspnea (Acute) Prediabetes (Acute) Hyperlipidemia (Acute) Functional tremor (Acute) Abnormal mammogram (Acute) Eczema (Acute) Snoring (Acute) Screening for colon cancer (Acute) Medical History Pap smear vag w ASC-US Diverticular disease Osteopenia History of prediabetes Tremor Severe obstructive sleep apnea Abnormal laboratory test result Depressed mood Insomnia Nephrolithiasis, uric acid Squamous cell carcinoma Hair loss Wheezing Exertional shortness of breath Dizziness Right wrist pain Adrenal adenoma Chest pain Hx of adenomatous colonic polyps Low back pain Psoriasis Vaginal Pap smear with ASC-US Obesity GERD (gastroesophageal reflux disease) Vaginal atrophy Paroxysmal atrial fibrillation Pt has postponed cards f/u until the Fall 2016 ( doesnt have respite care for boarders) BMI 36.0-36.9,adult Former smoker Vertigo Impaired fasting glucose Osteoporosis Diverticulosis Granuloma annulare Family History Mother Heart murmur Father Coronary artery disease Heart disease heart attack Sister Heart disease heart attack Brother Heart disease heart attack Social History Smoking/Tobacco Use Status: Former Tobacco Use tobacco type: cigarettes Quit Date: 11/24/02 Pack-years: 60 Tobacco: How many years used: 20 Smoking risk assessment performed?: Yes Alcohol Intake: never Drug use: Never Substance use type: does not use Household members: friend(s) Housing: house Number of Children: 3 number of grandchildren: 3 Pets and animals: Yes Pets and animals: cat(s) and other Details: rabbits What type of physical activity do you participate in: walking Seatbelt use: always Do you feel safe at home: Yes Do you feel safe in your relationship?: Yes
--- NOTE | 2024-05-05 14:44 | DI.RAD_ITS ---
Exam(s) XR PORTABLE CHEST AP EXAM: XR PORTABLE CHEST AP CLINICAL HISTORY: Slurred speech. TECHNIQUE: 2D digital imaging was performed. COMPARISON: CR XR PORTABLE CHEST AP from 02/12/2023 FINDINGS: Single AP portable view. Mild cardiomegaly again noted. The mediastinum is not widened. No new infiltrates nor pleural effusions. No pulmonary edema. IMPRESSION: No acute pulmonary findings on this single AP portable view of the chest. DATA REPOSITORY: RADIATION DOSE DELIVERED:
--- NOTE | 2024-05-05 15:00 | DI.CT_ITS ---
Exam(s) CT HEAD WO EXAM: CT HEAD WO CLINICAL HISTORY: Sudden onset worst headache of life. TECHNIQUE: Imaging Protocol: Axial computed tomography images with coronal and sagittal reformatted images were created and reviewed COMPARISON: No exams were available for comparison FINDINGS: There are no skull fractures. There is no fluid in the visualized paranasal sinuses. There is a large acute intra-axial hemorrhage in the right occipital lobe which measures approximatel y 4.3 cm AP by 2.5 cm wide by 3 cm craniocaudal. There is some surrounding white matter edema. No shazia ft of midline structures. No subarachnoid blood. There is no blood within the ventricular system nor within the basal cisterns. IMPRESSION: Large acute intra-axial hemorrhage in the right occipital lobe as described above. Report called by myself to ER physician 05/05/2024 at 3:35 p.m. RADIATION DOSE DELIVERED: 858.89mGy.cm Total DLP DATA REPOSITORY: All CT scans at this facility are submitted to the National Radiology Data Registry (NRDR) Dose Index Registry (DIR) with the [employer] (A[employer]). RADIATION OPTIMIZATION: All CT scans at this facility use at least one of these dose optimization te chniques: automated exposure control; mA and/or kV adjustment per patient size (includes targeted exa ms where dose is matched to clinical indication); or iterative reconstruction.
[2024-05-05 15:06] LABS: Absolute Eosinophil Count 0.12 10^3/uL (0.0-0.7); Absolute Monocyte Count 0.89 10^3/uL (0.1-0.8); Basophils % 0.3 %; Eosinophils % 0.8 %; HCT 47.7 % (36.0-46.0); HGB 16.1 g/dL (11.2-15.7); Immature Grans % 0.7 %; Lymphocytes % 18.6 %; MCH 30.4 pg (27.0-33.0); MCHC 33.8 % (32.0-36.0); MCV 90 fL (80-95); MPV 9.9 fL (8.0-11.0); Monocytes % 5.9 %; Neutrophils % 73.7 %; Platelet Count 264 10^3/uL (130-400); RDW 12.7 % (11.7-14.6); WBC 15.08 10^3/uL (4.4-10.8)
[2024-05-05 15:07] LABS: Absolute Basophil Count 0.05 10^3/uL (0.0-0.2); Absolute Neutrophil Count 11.11 10^3/uL (1.2-6.7)
[2024-05-05 15:11] LABS: ESR 13 mm/hr (0-30)
[2024-05-05] MEDS: Normal Saline - Diluent 50 ML VIAL IJ (15:20)
[2024-05-05] MEDS: Ondansetron 4 MG/2 ML VIAL IVP (15:20)
[2024-05-05] MEDS: Normal Saline 500 ML IV (15:20)
[2024-05-05] MEDS: Omnipaque 350 MG/ML 100 ML BTL IJ (15:21)
[2024-05-05 15:37] LABS: ALT 29 U/L (14-59); AST 11 U/L (15-37); Albumin 3.7 g/dL (3.4-5.0); Alkaline Phosphatase 115 U/L (46-116); Anion Gap 7.9 mmol/L (3-11); BUN 19 mg/dL (7-18); Bilirubin, Total 0.5 mg/dL (0.2-1.0); CO2 29.1 mmol/L (21.0-32.0); Chloride 101 mmol/L (98-107); Estimated GFR 59.86 (mL/min/1.73m2); Glucose 106 mg/dL (74-106); Potassium 3.9 mmol/L (3.5-5.1); Sodium 138 mmol/L (136-145); TSH (W/Ref FT4) 0.78 uIU/mL (0.36-3.74); Total Protein 7.5 g/dL (6.4-8.2); Troponin I < 50 ng/L (< or =60)
[2024-05-05] MEDS: ACETAMINOPHEN 1,000 MG/100 ML BTL 400 MG IVPB (15:51)
[2024-05-05] MEDS: fentaNYL 100 MCG/2 ML VIAL 50 MCG IVP (15:52)
[2024-05-05] MEDS: HUMAN PROTHROM. CMPX. 1,500 UNIT in EMPTY EVACUATED CONTAINER 1 EACH 360 UNIT IV (16:05)
[2024-05-05] MEDS: Labetalol 100 MG/20 ML VIAL 10 MG IVP (17:17)
[2024-05-05 18:44] LABS: INR 1.1 (0.9-1.1); PTT Activated 26.2 sec (23.6-32.8); Prothrombin Time 10.7 sec (9.1-11.1)
[2024-05-05 20:34] LABS: Bilirubin Negative (Negative); Blood Negative (Negative); Clarity Clear (Clear); Glucose Negative (Negative); Ketones Negative (Negative); Leukocyte Esterase Trace (Negative); Nitrite Positive (Negative); Urobilinogen 0.2 mg/dL (Up to 0.2); pH 5.5 (5-8)
[2024-05-05 20:53] LABS: Bacteria Many HPF (Negative); C & S Indicated? Yes; Casts Negative LPF (Negative); Crystals Negative HPF (Negative); Epithelial Cells Rare HPF (Negative); Mucus Negative (Negative); RBC Negative HPF (0-2)
[2024-05-05] MEDS: cefTRIAXone 1 GM/50 ML BAG IVPB (22:25)
[2024-05-06 00:06] VITALS: BP 132/55; PULSE 68; RESP 16; O2SAT 97
== END 2024-05-06 00:07 | disposition short-term general hospital (02) ==
PROVIDERS: Emergency Provider Emergency Medicine; PCP Nurse Practitioner Family
DX: I61.8 Other nontraumatic intracerebral hemorrhage (principal); N39.0 Urinary tract infection, site not specified; I48.0 Paroxysmal atrial fibrillation; R40.2412 Glasgow coma scale score 13-15, at arrival to emergency department; Z79.01 Long term (current) use of anticoagulants; Z87.891 Personal history of nicotine dependence
CPT/HCPCS: 36415; 80053; 85652; 86850; 86900; 86901; 87077; 93005; 96361; 96365; 96375; 99285; 70450; 71045; 81003; 81015; 84443; 84484; 85025; 85610; 85730; 87086; 87186; 93010; J0131; J0696; J1920; J2405; J3010; J3490; J7168

== ENCOUNTER → 2024-06-09 09:21 | Outpatient (BNVA) | payer MEDICARE, MEDICAID, SELFPAY | PROVIDERS: PCP Nurse Practitioner Family; Referring Provider Nurse Practitioner Family; Visit Provider Psychiatry & Neurology Neurology | DX: F45.8 Other somatoform disorders (principal); G25.0 Essential tremor; I61.9 Nontraumatic intracerebral hemorrhage, unspecified; E85.4 Organ-limited amyloidosis; I68.0 Cerebral amyloid angiopathy | CPT/HCPCS: 99215 ==

== ENCOUNTER 2024-09-07 01:44 | Outpatient (CLI) | payer MEDICARE, MEDICAID, SELFPAY ==
--- NOTE | 2024-09-07 | DI.RAD_ITS ---
Exam(s) XR CHEST 2V PA LATERAL EXAM: XR CHEST 2V PA LATERAL CLINICAL HISTORY: CHRONIC COUGH, R05.3 TECHNIQUE: 2D digital imaging was performed of the chest. Two images were obtained. PA and lateral views were obtained. COMPARISON: CR XR CHEST 2V PA LATERAL from 11/11/2022 CR XR PORTABLE CHEST AP from 05/05/2024 FINDINGS: MEDIASTINUM: Normal. HEART: Normal. PULMONARY VASCULATURE: Normal. LUNGS: Clear. PLEURAL SPACE: No pleural effusion or pneumothorax. BONE:Within normal limits for the patient's age. OTHER FINDINGS:Normal. IMPRESSION: No acute pulmonary findings. DATA REPOSITORY: RADIATION DOSE DELIVERED:
--- NOTE | 2024-09-07 10:16 | DI.MAMMO_ITS ---
Exam(s) MAMMO SCREENING EXAM: MAMMO SCREENING CLINICAL HISTORY: SCREENING, Z12.31 TECHNIQUE: Bilateral full field digital CC and MLO mammographic images were obtained with 3D tomosyn thesis and utilizing computer aided detection (CAD). COMPARISON: Available for comparison. FINDINGS: Masses/Architectural Distortion: None seen. Microcalcifications: No suspicious pleomorphic-type are seen. Skin Thickening/Nipple Retraction: None. IMPRESSION: 1. No significant interval change with no specific features of malignancy noted. 2. Unless there is more urgent need, screening mammography is recommended, as per [employer] guidelines. BI-RADS Category 1 - Negative Breast Density - Category B - Scattered areas of fibroglandular density Breast density category C or D implies that the patient has dense breast tissue. Dense breast tissue is very common and is not abnormal but dense breast tissue can make it harder to find cancer on a ma mmogram. Also, dense breast tissue may increase their breast cancer risk. This information about the result of the mammogram report was provided to the patient to raise their awareness. Use this report when you speak with the patient about their risks for breast cancer, which includes their family hist ory. At that time, you may recommend for more screening tests (Ultrasound or MRI) as they might be us eful based on their risk. A negative radiographic report should not delay biopsy if a dominant or clinically suspicious mass is present. Up to ten percent of cancers are not identified on mammography. A negative report may reinforce clinical impression. Adenosis and dense breasts may obscure an underlying neoplasm. False positive reports average 6 to 10%. Patient will receive a letter notifying them of these results.
== END 2024-09-07 02:04 ==
PROVIDERS: PCP Nurse Practitioner Family; Visit Provider Nurse Practitioner Family
DX: Z12.31 Encounter for screening mammogram for malignant neoplasm of breast (principal); R05.3 Chronic cough
CPT/HCPCS: 77063; 77067; 71046

== ENCOUNTER 2024-10-20 17:13 | Outpatient (REF) | payer MEDICARE, MEDICAID, SELFPAY ==
[2024-10-20 16:59] LABS: Abs Immature Grans 0.16 10^3/uL (0.0-0.06); Absolute Basophil Count 0.04 10^3/uL (0.0-0.2); Absolute Eosinophil Count 0.16 10^3/uL (0.0-0.7); Absolute Lymphocyte Count 2.31 10^3/uL (1.2-3.4); Absolute Monocyte Count 0.83 10^3/uL (0.1-0.8); Basophils % 0.4 %; Eosinophils % 1.5 %; HCT 37.8 % (36.0-46.0); HGB 12.2 g/dL (11.2-15.7); Immature Grans % 1.5 %; Lymphocytes % 21.2 %; MCH 30.3 pg (27.0-33.0); MCHC 32.3 % (32.0-36.0); MCV 94 fL (80-95); MPV 10.2 fL (8.0-11.0); Monocytes % 7.6 %; Neutrophils % 67.8 %; Platelet Count 467 10^3/uL (130-400); RBC 4.02 10^6/uL (3.93-5.22); RDW 14.3 % (11.7-14.6); RDW-SD 49.1 fL; WBC 10.89 10^3/uL (4.4-10.8)
[2024-10-20 17:05] LABS: Absolute Neutrophil Count 7.38 10^3/uL (1.2-6.7)
--- OUTSIDE RECORDS SUMMARY | 2024-10-20 17:15 | XMS_ITS | Continuity of Care Document ---
Author Organization [facility] Address [address] [place] [address] Encounter [facility] NBR [id number] Date(s): 09/09/23 - 09/09/23 [facility] [address] [place] [address]- Encounter Diagnosis Right wrist sprain(Discharge Diagnosis) - 09/09/23 Right wrist injury(Discharge Diagnosis) - 09/09/23 Sprain of UCL of right wrist(Discharge Diagnosis) - 09/09/23 Discharge Disposition: Home or Self Care Attending Physician: Trixie Mukherjee PA-C Allergies, Adverse Reactions, Alerts No Known Allergies Functional Status 09/09/23 Other exposure to Infectious Disease Non e Medications DilTIAZem (Eqv-Cardizem CD) 300 mg/24 hours oral capsule, extended release 0 Refill(s) Start Date: 09/09/23 Status: Ordered Eliquis 5 mg oral tablet 5 mg = 1 tab, Oral, BID, # 60 tab, 0 Refill(s) Start Date: 09/09/23 Status: Ordered lovastatin 40 mg oral tablet 40 mg = 1 tab, Oral, Daily, # 30 tab, 0 Refill(s) Start Date: 09/09/23 Status: Ordered norethindrone 5 mg oral tablet 5 mg = 1 tab, Oral, Daily, # 30 tab, 0 Refill(s) Start Date: 09/09/23 Status: Ordered traMADol 50 mg oral tablet 50 mg = 1 tab, Oral, every 12 hr, PRN as needed for pain, 0 Refill(s) Start Date: 09/09/23 Status: Ordered Vital Signs Most recent to oldest [Reference Range]: 1 Temperature Tympanic [36.6-37.9 Deg C] 3 6.6 Deg C (09/09/23 2:02 PM) Peripheral Pulse Rate [60-100 bpm] 73 bp m (09/09/23 2:02 PM) Respiratory Rate [12-24 br/min] 18 br/mi n (09/09/23 2:02 PM) Blood Pressure [90-140/60-90 mmHg] 155/7 3mmHg *HI* (09/09/23 2:02 PM) Mean Arterial Pressure, Cuff [65-140 mmH g] 100 mmHg (09/09/23 2:02 PM) Social History Social History Type Response Sex Female Hospital Discharge Instructions Patient Education 09/09/2023 13:49:36 Wrist and Forearm Exercises-SportsMed Wrist and Forearm Exercises Ask your health care provider which exercises are safe for you. Do exercises exactly as told by your health care provider and adjust them as directed. It is normal to feel mild stretching, pulling, tightness, or discomfort as you do these exercises. Stop right away if you feel sudden pain or your pain gets worse. Do not begin these exercises until told by your health care provider. Opsco-nf-zlzwok exercises These exercises warm up your muscles and joints and improve the movement and flexibility of your injured wrist and forearm. These exercises also help to relieve pain, numbness, and tingling. These exercises are done using the muscles in your injured wrist and forearm. Wrist flexion 1. Bend your left / right elbow to a 90-degree angle (right angle) with your palm facing the floor. 2. Bend your wrist so that your fingers point toward the floor (flexion). 3. Hold this position for seconds. 4. Slowly return to the starting position. Repeat times. Complete this exercise times a day. Wrist extension 1. Bend your left / right elbow to a 90-degree angle (right angle) with your palm facing the floor. 2. Bend your wrist so that your fingers point toward the ceiling (extension). 3. Hold this position for seconds. 4. Slowly return to the starting position. Repeat times. Complete this exercise times a day. Ulnar deviation 1. Bend your left / right elbow to a 90-degree angle (right angle), and rest your forearm on a table with your palm facing down. 2. Keeping your hand flat on the table, bend your left /right wrist toward your small finger (pinkie). This is ulnar deviation. 3. Hold this position for seconds. 4. Slowly return to the starting position. Repeat times. Complete this exercise times a day. Radial deviation 1. Bend your left / right elbow to a 90-degree angle (right angle), and rest your forearm on a table with your palm facing down. 2. Keeping your hand flat on the table, bend your left /right wrist toward your thumb. This is radial deviation. 3. Hold this position for seconds. 4. Slowly return to the starting position. Repeat times. Complete this exercise times a day. Forearm rotation, supination 1. Sit with your left / right elbow bent to a 90-degree angle (right angle). Position your forearm so that the thumb is facing the ceiling (neutral position). 2. Turn (rotate) your palm up toward the ceiling (supination), stopping when you feel a gentle stretch. 3. Hold this position for seconds. 4. Slowly return to the starting position. Repeat times. Complete this exercise times a day. Forearm rotation, pronation 1. Sit with your left / right elbow bent to a 90-degree angle (right angle). Position your forearm so that the thumb is facing the ceiling (neutral position). 2. Rotate your palm down toward the floor (pronation), stopping when you feel a gentle stretch. 3. Hold this position for seconds. 4. Slowly return to the starting position. Repeat times. Complete this exercise times a day. Stretching These exercises warm up your muscles and joints and improve the movement and flexibility of your injured wrist and forearm. These exercises also help to relieve pain, numbness, and tingling. These exercises are done using your healthy wrist and forearm to help stretch the muscles in your injured wrist and forearm. Wrist flexion 1. Extend your left / right arm in front of you, and turn your palm down toward the floor. ??? If told by your health care provider, bend your left / right elbow to a 90- degree angle (right angle) at your side. 2. Using your uninjured hand, gently press over the back of your left / right hand to bend your wrist and fingers toward the floor (flexion). Go as far as you can to feel a stretch without causing pain. 3. Hold this position for seconds. 4. Slowly return to the starting position. Repeat times. Complete this exercise times a day. Wrist extension 1. Extend your left / right arm in front of you and turn your palm up toward the ceiling. ??? If told by your health care provider, bend your left / right elbow to a 90- degree angle (right angle) at your side. 2. Using your uninjured hand, gently press over the palm of your left / right hand to bend your wrist and fingers toward the floor (extension). Go as far as you can to feel a stretch without causing pain. 3. Hold this position for seconds. 4. Slowly return to the starting position. Repeat times. Complete this exercise times a day. Forearm rotation, supination 1. Sit with your left / right elbow bent to a 90-degree angle (right angle). Position your forearm so that the thumb is facing the ceiling (neutral position). 2. Rotate your palm up toward the ceiling as far as you can on your own (supination). Then, use your uninjured hand to help turn your forearm more, stopping when you feel a gentle stretch. 3. Hold this position for seconds. 4. Slowly return to the starting position. Repeat times. Complete this exercise times a day. Forearm rotation, pronation 1. Sit with your left / right elbow bent to a 90-degree angle (right angle). Position your forearm so that the thumb is facing the ceiling (neutral position). 2. Rotate your palm down toward the floor as far as you can on your own (pronation). Then, use youruninjured hand to help turn your forearm more, stopping when you feel a gentle stretch. 3. Hold this position for seconds. 4. Slowly return to the starting position. Repeat times. Complete this exercise times a day. Strengthening exercises These exercises build strength and endurance in your wrist and forearm. Endurance is the ability touse your muscles for a long time, even after they get tired. Wrist flexion 1. Sit with your left / right forearm supported on a table or other surface. Bend your elbow to a 90-degree angle (right angle), and rest your hand palm-up over the edge of the table. 2. Hold a weight in your left / right hand. Or, hold an exercise band or tube in both hands, keeping your hands at the same level and hip distance apart. There should be a slight tension in the exercise band or tube. 3. Slowly curl your hand up toward the ceiling (flexion). 4. Hold this position for seconds. 5. Slowly lower your hand back to the starting position. Repeat times. Complete this exercise times a day. Wrist extension 1. Sit with your left / right forearm supported on a table or other surface. Bend your elbow to a 90-degree angle (right angle), and rest your hand palm-down over the edge of the table. 2. Hold a weight in your left / right hand. Or, hold an exercise band or tube in both hands, keeping your hands at the same level and hip distance apart. There should be a slight tension in the exercise band or tube. 3. Slowly curl your hand up toward the ceiling (extension). 4. Hold this position for seconds. 5. Slowly lower your hand back to the starting position. Repeat times. Complete this exercise times a day. Forearm rotation, supination 1. Sit with your left / right forearm supported on a table or other surface. Bend your elbow to a 90-degree angle (right angle). Position your forearm so that your thumb is facing the ceiling (neutral position) and your hand is resting over the edge of the table. 2. Hold a hammer in your left / right hand. ??? This exercise will be easier if you hold the hammer near the head of the hammer. ??? This exercise will be harder if you hold the hammer near the end of the handle. 3. Without moving your elbow, slowly rotate your palm up toward the ceiling (supination). 4. Hold this position for seconds. 5. Slowly return to the starting position. Repeat times. Complete this exercise times a day. Forearm rotation, pronation 1. Sit with your left / right forearm supported on a table or other surface. Bend your elbow to a 90-degree angle (right angle). Position your forearm so that the thumb is facing the ceiling (neutralposition), with your hand resting over the edge of the table. 2. Hold a hammer in your left / right hand. ??? This exercise will be easier if you hold the hammer near the head of the hammer. ??? This exercise will be harder if you hold the hammer near the end of the handle. 3. Without moving your elbow, slowly rotate your palm down toward the floor (pronation). 4. Hold this position for seconds. 5. Slowly return to the starting position. Repeat times. Complete this exercise times a day. Performance Tester strengthening 1. Grasp a stress ball or other ball in the middle of your left / right hand. Start with your elbowbent to a 90-degree angle (right angle). 2. Slowly increase the pressure, squeezing the ball as hard as you can without causing pain. ??? Think of bringing the tips of your fingers into the middle of your palm. All of your finger joints should bend when doing this exercise. ??? To make this exercise harder, gradually try to straighten your elbow in front of you, until youcan do the exercise with your elbow fully straight. 3. Hold your squeeze for seconds, then relax. If instructed by your health care provider, do this exercise: ??? With your forearm positioned so that the thumb is facing the ceiling (neutral position). ??? With your forearm turned palm down. ??? With your forearm turned palm up. Repeat times. Complete this exercise times a day. This information is not intended to replace advice given to you by your health care provider. Make sure you discuss any questions you have with your health care provider. Document Revised: 12/30/2019 Document Reviewed: 12/30/2019 [facility] Patient Education ?? 2022 [employer] 09/09/2023 13:49:34 Wrist Sprain, Adult Wrist Sprain, Adult A wrist sprain is a stretch or tear in the strong tissues that connect the wrist bones to each other. These strong tissues are called ligaments. There are three types of wrist sprains: ??? Grade 1. The ligament is stretched more than normal. There may be a minor amount of wrist pain. ??? Grade 2. The ligament is partially torn. You may be able to move your wrist, but not very much.There may be a moderate amount of wrist pain. ??? Grade 3. The ligament or ligaments are completely torn. You may find it difficult to move your wrist even a little. There may be a significant amount of wrist pain. What are the causes? This condition may be caused by using the wrist too much during sports, exercise, or work. It can also happen due to a fall or during an accident. What increases the risk? You are more likely to develop this condition if: ??? You had a previous wrist or arm injury. ??? You have poor wrist strength and flexibility. ??? You play contact sports, such as football or soccer. ??? You participate in sports that may result in a fall, such as skateboarding, biking, skiing, or snowboarding. ??? You do not exercise regularly. ??? You use exercise equipment that does not fit well. What are the signs or symptoms? Symptoms of this condition include: ??? Pain in the wrist, arm, or hand. ??? Swelling or bruised skin near the wrist, hand, or arm. The skin may look yellow or blue. ??? Stiffness or trouble moving the hand. ??? Hearing a noise, like a pop or a snap, at the time of injury, or feeling a tear at the time of the injury. ??? A warm feeling in the skin around the wrist. How is this diagnosed? This condition is diagnosed with a physical exam. Sometimes an X-ray is taken to make sure a bone did not break. You may also have an MRI of your wrist to check for torn ligaments. How is this treated? This condition is treated by resting and applying ice to your wrist. Additional treatment may include: ??? Taking medicine for pain and inflammation. ??? Wearing a splint, brace, or cast for a short period of time to keep your wrist from moving (immobilized). ??? Doing exercises to strengthen and stretch your wrist. ??? Having surgery. This may be done if the ligament is completely torn. Follow these instructions at home: If you have a splint or brace: ??? Wear the splint or brace as told by your health care provider. Remove it only as told by your health care provider. ??? Loosen it if your fingers tingle, become numb, or turn cold and blue. ??? Keep it clean. ??? If the splint or brace is not waterproof: ??? Do not let it get wet. ??? Cover it with a watertight covering when you take a bath or a shower. If you have a cast: ??? Do not put pressure on any part of the cast until it is fully hardened. This may take several hours. ??? Do not stick anything inside the cast to scratch your skin. Doing that increases your risk of infection. ??? Check the skin around the cast every day. Tell your health care provider about any concerns. ??? You may put lotion on dry skin around the edges of the cast. Do not put lotion on the skin underneath the cast. ??? Keep it clean. ??? If the cast is not waterproof: ??? Do not let it get wet. ??? Cover it with a watertight covering when you take a bath or shower. Managing pain, stiffness, and swelling ??? If directed, put ice on the injured area. To do this: ??? If you have a removable splint or brace, remove it as told by your health care provider. ??? Put ice in a plastic bag. ??? Place a towel between your skin and the bag or between the splint or cast and the bag. ??? Leave the ice on for 20 minutes, 2???3 times a day. ??? Remove the ice if your skin turns bright red. This is very important. If you cannot feel pain, heat, or cold, you have a greater risk of damage to the area. ??? Move your fingers often to reduce stiffness and swelling. ??? Raise (elevate) the injured area above the level of your heart while you are sitting or lying down. Activity ??? Rest your wrist as told by your health care provider. Do not do things that cause pain. ??? Ask your health care provider when it is safe to drive if you have a splint, brace, or cast on your wrist. ??? Do exercises as told by your health care provider. ??? Return to your normal activities as told by your health care provider. Ask your health care provider what activities are safe for you. General instructions ??? Take atkr-uue-rwazwqk and prescription medicines only as told by your health care provider. ??? Do not use any products that contain nicotine or tobacco, such as cigarettes, e-cigarettes, andchewing tobacco. These can delay healing. If you need help quitting, ask your health care provider. ??? Keep all follow-up visits. This is important. Contact a health care provider if: ??? Your pain, bruising, or swelling gets worse. ??? Your skin becomes red, gets a rash, or has open sores. ??? Your pain does not get better or it gets worse. Get help right away if: ??? You have a new or sudden sharp pain in the hand, arm, or wrist. ??? You have tingling or numbness in your hand. ??? Your fingers turn white, very red, or cold and blue. ??? You cannot move your fingers. Summary ??? A wrist sprain is damage to ligaments in your wrist. ??? Wrist sprains can range from mild to severe. ??? Return to your normal activities as told by your health care provider. Ask your health care provider what activities are safe for you. ??? You may need to wear a splint, brace, or cast for a short period of time. This information is not intended to replace advice given to you by your health care provider. Make sure you discuss any questions you have with your health care provider. Document Revised: 03/19/2021 Document Reviewed: 03/19/2021 [facility] Patient Education ?? 2022 [employer]. Physician Outpatient Note * Trixie Mukherjee PA-C: PERFORM Event Display: Office Clinic Note Physician Authored Date: [id number] ATIYA BRUNO :1950 Age:73 years Sex:Female Visit Date:09/09/2023 Chief Complaint right hand pain, hx of fracture x2 months ago History of Present Illness This is a 73-year-old female who presents for evaluation of right??wrist injury. ??She reports that??she was lifting weights at the gym approximately 2 months ago??when it sounds like she lost her gripping on a 90 pound weight.?? There was no direct impact or trauma. ??She has been??dealing with pain in the right wrist??that??radiates into the thumb and sometimes up to the shoulder since.?? She is having difficulty making a fist and gripping things.?? She denies numbness or tingling. ??No priorinjury to this hand or wrist.?? She notes that she was evaluated by her primary care at the time who did not suspect fracture and so gave her wrist splint but symptoms are not improving. ??She then went to urgent care??but did not trust??the technology of their x-ray equipment and wanted to come here for x-rays instead to make sure that she does not have a fracture Physical Exam Vitals & Measurements T:??36.6?C ??(Tympanic)?? HR:??73??(Peripheral)?? RR:??18?? BP:??155/73?? SpO2:??98%?? Pain Score:??4?? General: Alert and oriented x3, no acute distress, well-nourished and hydrated Extremities: Examination of the right hand and wrist reveals no obvious deformity, swelling, ecchymosis.?? There is tenderness over the thenar eminence??and along the ulnar collateral ligament. ??No bony tenderness??in the??metacarpals or phalanges.?? No bony tenderness over the ulnar styloid or??distal radius.?? Pain with??ulnar deviation. 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 ??Her symptoms areconsistent with a sprain of the UCL??of the??right wrist. ??Reviewed etiology and management. ??Shewas placed in a Velcro splint with thumb immobilization today. ??Advised that she??wear the splint??with any??repetitive use activities and while sleeping.?? She can remove to perform gentle range ofmotion exercises.?? I encouraged that she continue to work with her physical therapist.?? She can apply ice and take qxpf-ybz-cyhbtuj anti- inflammatories as needed.?? If symptoms or not improving over the course of the next 3 to 4 weeks I encouraged follow-up. ??She agrees with plan and will follow-up as needed 2.??Right wrist injury??S69.91XA 3.??Right wrist sprain??S63.501A Patient Instructions Your x-rays negative for fracture or bony abnormality in the right hand and wrist. ??I suspect thatyou sustained a sprain of??your ulnar collateral ligament of your right wrist. ??There is no evidence of avulsion fracture on xray. ??I am recommending that we transition you into a??Velcro splint with some support to help immobilize the ulnar collateral ligament and??thumb itself.?? Modify activity and avoid overuse??of the affected??wrist.?? Ice and take zujw-mum-ubbshph anti-inflammatories as needed.?? If symptoms or not improving??with the new brace, I recommend??referral to physical therapy for??PT. ??Please follow-up for any new or worsening symptoms despite these recommendations Patient Education Wrist and Forearm Exercises-SportsMed Wrist Sprain, Adult Problem List/Past Medical History Ongoing No qualifying data Historical No qualifying data Medications DilTIAZem (Eqv-Cardizem CD) 300 mg/24 hours oral capsule, extended release Eliquis 5 mg oral tablet, 5 mg= 1 tab, Oral, BID lovastatin 40 mg oral tablet, 40 mg= 1 tab, Oral, Daily norethindrone 5 mg oral tablet, 5 mg= 1 tab, Oral, Daily traMADol 50 mg oral tablet, 50 mg= 1 tab, Oral, every 12 hr, PRN Allergies No Known Allergies Electronically Signed on 09/09/23 03:51 PM Trixie Mukherjee PA-C Outpatient Summary note * Trixie Mukherjee PA-C: PERFORM Event Display: Ambulatory Patient Summary Authored Date: [id number] ATIYA BRUNO :1950 Age:73 years Sex:Female Visit Date:09/09/2023 Ambulatory Visit Instructions We would like to thank you for allowing us to assist you with your healthcare needs. The following includes patient education materials and information regarding your injury/illness. Your Next Steps Instructions From Your Care Team Your x-rays negative for fracture or bony abnormality in the right hand and wrist. ??I suspect thatyou sustained a sprain of??your ulnar collateral ligament of your right wrist. ??There is no evidence of avulsion fracture on xray. ??I am recommending that we transition you into a??Velcro splint with some support to help immobilize the ulnar collateral ligament and??thumb itself.?? Modify activity and avoid overuse??of the affected??wrist.?? Ice and take wiap-lpa-wicmoma anti-inflammatories as needed.?? If symptoms or not improving??with the new brace, I recommend??referral to physical therapy for??PT. ??Please follow-up for any new or worsening symptoms despite these recommendations Medications What How Much When Instructions Unchanged apixaban (Eliquis 5 mg oral tablet) 1 tab Oral (given by mouth) 2 times a day Unchanged dilTIAZem (DilTIAZem (Eqv-Cardizem CD) 300 mg/ 24 hours oral capsule, extended release) Unchanged lovastatin (lovastatin 40 mg oral tablet) 1 tab Oral (given by mouth) Every day Unchanged norethindrone (norethindrone 5 mg oral tablet) 1 tab Oral (given by mouth) Every day Unchanged traMADol (traMADol 50 mg oral tablet) 1 tab Oral (given by mouth) Every 12 hours as needed for as needed for pain Your Summary Your Diagnosis Sprain of UCL of right wrist Right wrist injury Right wrist sprain Your Care Team Attending Physician - Trixie Mukherjee PA-C Discharge Vitals Temperature??(Tympanic) 97.9 ??F (36.6 ??C) Heart Rate??(Peripheral) 73 Respiratory Rate?? 18 Blood Pressure?? 155/73?? Allergies No Known Allergies Education Materials Wrist and Forearm Exercises Ask your health care provider which exercises are safe for you. Do exercises exactly as told by your health care provider and adjust them as directed. It is normal to feel mild stretching, pulling, tightness, or discomfort as you do these exercises. Stop right away if you feel sudden pain or your pain gets worse. Do not begin these exercises until told by your health care provider. Euxom-cb-cnmnxl exercises These exercises warm up your muscles and joints and improve the movement and flexibility of your injured wrist and forearm. These exercises also help to relieve pain, numbness, and tingling. These exercises are done using the muscles in your injured wrist and forearm. Wrist flexion 1.?? Bend your left / right elbow to a 90-degree angle (right angle) with your palm facing the floor. 2.?? Bend your wrist so that your fingers point toward the floor (flexion). 3.?? Hold this position for seconds. 4.?? Slowly return to the starting position. Repeat times. Complete this exercise times a day. Wrist extension 1.?? Bend your left / right elbow to a 90-degree angle (right angle) with your palm facing the floor. 2.?? Bend your wrist so that your fingers point toward the ceiling (extension). 3.?? Hold this position for seconds. 4.?? Slowly return to the starting position. Repeat times. Complete this exercise times a day. Ulnar deviation 1.?? Bend your left / right elbow to a 90-degree angle (right angle), and rest your forearm on a table with your palm facing down. 2.?? Keeping your hand flat on the table, bend your left /right wrist toward your small finger (pinkie).This is ulnar deviation. 3.?? Hold this position for seconds. 4.?? Slowly return to the starting position. Repeat times. Complete this exercise times a day. Radial deviation 1.?? Bend your left / right elbow to a 90-degree angle (right angle), and rest your forearm on a table with your palm facing down. 2.?? Keeping your hand flat on the table, bend your left /right wrist toward your thumb. This is radial deviation. 3.?? Hold this position for seconds. 4.?? Slowly return to the starting position. Repeat times. Complete this exercise times a day. Forearm rotation, supination 1.?? Sit with your left / right elbow bent to a 90-degree angle (right angle). Position your forearm so that the thumb is facing the ceiling (neutral position). 2.?? Turn (rotate) your palm up toward the ceiling (supination), stopping when you feel a gentle stretch. 3.?? Hold this position for seconds. 4.?? Slowly return to the starting position. Repeat times. Complete this exercise times a day. Forearm rotation, pronation 1.?? Sit with your left / right elbow bent to a 90-degree angle (right angle). Position your forearm so that the thumb is facing the ceiling (neutral position). 2.?? Rotate your palm down toward the floor (pronation), stopping when you feel a gentle stretch. 3.?? Hold this position for seconds. 4.?? Slowly return to the starting position. Repeat times. Complete this exercise times a day. Stretching These exercises warm up your muscles and joints and improve the movement and flexibility of your injured wrist and forearm. These exercises also help to relieve pain, numbness, and tingling. These exercises are done using your healthy wrist and forearm to help stretch the muscles in your injured wrist and forearm. Wrist flexion 1.?? Extend your left / right arm in front of you, and turn your palm down toward the floor. ? If told by your health care provider, bend your left / right elbow to a 90- degree angle (right angle) at your side. 2.?? Using your uninjured hand, gently press over the back of your left / right hand to bend your wrist and fingers toward the floor (flexion). Go as far as you can to feel a stretch without causing pain. 3.?? Hold this position for seconds. 4.?? Slowly return to the starting position. Repeat times. Complete this exercise times a day. Wrist extension 1.?? Extend your left / right arm in front of you and turn your palm up toward the ceiling. ? If told by your health care provider, bend your left / right elbow to a 90- degree angle (right angle) at your side. 2.?? Using your uninjured hand, gently press over the palm of your left / right hand to bend your wrist and fingers toward the floor (extension). Go as far as you can to feel a stretch without causing pain. 3.?? Hold this position for seconds. 4.?? Slowly return to the starting position. Repeat times. Complete this exercise times a day. Forearm rotation, supination 1.?? Sit with your left / right elbow bent to a 90-degree angle (right angle). Position your forearm so that the thumb is facing the ceiling (neutral position). 2.?? Rotate your palm up toward the ceiling as far as you can on your own (supination). Then, use your uninjured hand to help turn your forearm more, stopping when you feel a gentle stretch. 3.?? Hold this position for seconds. 4.?? Slowly return to the starting position. Repeat times. Complete this exercise times a day. Forearm rotation, pronation 1.?? Sit with your left / right elbow bent to a 90-degree angle (right angle). Position your forearm so that the thumb is facing the ceiling (neutral position). 2.?? Rotate your palm down toward the floor as far as you can on your own (pronation). Then, use your uninjured hand to help turn your forearm more, stopping when you feel a gentle stretch. 3.?? Hold this position for seconds. 4.?? Slowly return to the starting position. Repeat times. Complete this exercise times a day. Strengthening exercises These exercises build strength and endurance in your wrist and forearm. Endurance is the ability touse your muscles for a long time, even after they get tired. Wrist flexion 1.?? Sit with your left / right forearm supported on a table or other surface. Bend your elbow to a 90-degree angle (right angle), and rest your hand palm-up over the edge of the table. 2.?? Hold a weight in your left / right hand. Or, hold an exercise band or tube in both hands, keeping your hands at the same level and hip distance apart. There should be a slight tension in the exercise band or tube. 3.?? Slowly curl your hand up toward the ceiling (flexion). 4.?? Hold this position for seconds. 5.?? Slowly lower your hand back to the starting position. Repeat times. Complete this exercise times a day. Wrist extension 1.?? Sit with your left / right forearm supported on a table or other surface. Bend your elbow to a 90-degree angle (right angle), and rest your hand palm-down over the edge of the table. 2.?? Hold a weight in your left / right hand. Or, hold an exercise band or tube in both hands, keeping your hands at the same level and hip distance apart. There should be a slight tension in the exercise band or tube. 3.?? Slowly curl your hand up toward the ceiling (extension). 4.?? Hold this position for seconds. 5.?? Slowly lower your hand back to the starting position. Repeat times. Complete this exercise times a day. Forearm rotation, supination 1.?? Sit with your left / right forearm supported on a table or other surface. Bend your elbow to a 90-degree angle (right angle). Position your forearm so that your thumb is facing the ceiling (neutral position) and your hand is resting over the edge of the table. 2.?? Hold a hammer in your left / right hand. ? This exercise will be easier if you hold the hammer near the head of the hammer. ? This exercise will be harder if you hold the hammer near the end of the handle. 3.?? Without moving your elbow, slowly rotate your palm up toward the ceiling (supination). 4.?? Hold this position for seconds. 5.?? Slowly return to the starting position. Repeat times. Complete this exercise times a day. Forearm rotation, pronation 1.?? Sit with your left / right forearm supported on a table or other surface. Bend your elbow to a 90-degree angle (right angle). Position your forearm so that the thumb is facing the ceiling (neutral position), with your hand resting over the edge of the table. 2.?? Hold a hammer in your left / right hand. ? This exercise will be easier if you hold the hammer near the head of the hammer. ? This exercise will be harder if you hold the hammer near the end of the handle. 3.?? Without moving your elbow, slowly rotate your palm down toward the floor (pronation). 4.?? Hold this position for seconds. 5.?? Slowly return to the starting position. Repeat times. Complete this exercise times a day. Performance Tester strengthening 1.?? Grasp a stress ball or other ball in the middle of your left / right hand. Start with your elbow bent to a 90-degree angle (right angle). 2.?? Slowly increase the pressure, squeezing the ball as hard as you can without causing pain. ? Think of bringing the tips of your fingers into the middle of your palm. All of your finger joints should bend when doing this exercise. ? To make this exercise harder, gradually try to straighten your elbow in front of you, until you tae the exercise with your elbow fully straight. 3.?? Hold your squeeze for seconds, then relax. If instructed by your health care provider, do this exercise: ? With your forearm positioned so that the thumb is facing the ceiling (neutral position). ? With your forearm turned palm down. ? With your forearm turned palm up. Repeat times. Complete this exercise times a day. This information is not intended to replace advice given to you by your health care provider. Make sure you discuss any questions you have with your health care provider. Document Revised: 12/30/2019 Document Reviewed: 12/30/2019 Else[employer] Patient Education ?? 2022 [facility] Wrist Sprain, Adult A wrist sprain is a stretch or tear in the strong tissues that connect the wrist bones to each other. These strong tissues are called ligaments. There are three types of wrist sprains: ? Grade 1. The ligament is stretched more than normal. There may be a minor amount of wrist pain. ? Grade 2. The ligament is partially torn. You may be able to move your wrist, but not very much. There may be a moderate amount of wrist pain. ? Grade 3. The ligament or ligaments are completely torn. You may find it difficult to move your wrist even a little. There may be a significant amount of wrist pain. What are the causes? This condition may be caused by using the wrist too much during sports, exercise, or work. It can also happen due to a fall or during an accident. What increases the risk? You are more likely to develop this condition if: ? You had a previous wrist or arm injury. ? You have poor wrist strength and flexibility. ? You play contact sports, such as football or soccer. ? You participate in sports that may result in a fall, such as skateboarding, biking, skiing, or snowboarding. ? You do not exercise regularly. ? You use exercise equipment that does not fit well. What are the signs or symptoms? Symptoms of this condition include: ? Pain in the wrist, arm, or hand. ? Swelling or bruised skin near the wrist, hand, or arm. The skin may look yellow or blue. ? Stiffness or trouble moving the hand. ? Hearing a noise, like a pop or a snap, at the time of injury, or feeling a tear at the time of the injury. ? A warm feeling in the skin around the wrist. How is this diagnosed? This condition is diagnosed with a physical exam. Sometimes an X-ray is taken to make sure a bone did not break. You may also have an MRI of your wrist to check for torn ligaments. How is this treated? This condition is treated by resting and applying ice to your wrist. Additional treatment may include: ? Taking medicine for pain and inflammation. ? Wearing a splint, brace, or cast for a short period of time to keep your wrist from moving (immobilized). ? Doing exercises to strengthen and stretch your wrist. ? Having surgery. This may be done if the ligament is completely torn. Follow these instructions at home: If you have a splint or brace: ? Wear the splint or brace as told by your health care provider. Remove it only as told by your health care provider. ? Loosen it if your fingers tingle, become numb, or turn cold and blue. ? Keep it clean. ? If the splint or brace is not waterproof: ? Do not let it get wet. ? Cover it with a watertight covering when you take a bath or a shower. If you have a cast: ? Do not put pressure on any part of the cast until it is fully hardened. This may take several hours. ? Do not stick anything inside the cast to scratch your skin. Doing that increases your risk of infection. ? Check the skin around the cast every day. Tell your health care provider about any concerns. ? You may put lotion on dry skin around the edges of the cast. Do not put lotion on the skin underneath the cast. ? Keep it clean. ? If the cast is not waterproof: ? Do not let it get wet. ? Cover it with a watertight covering when you take a bath or shower. Managing pain, stiffness, and swelling ? If directed, put ice on the injured area. To do this: ? If you have a removable splint or brace, remove it as told by your health care provider. ? Put ice in a plastic bag. ? Place a towel between your skin and the bag or between the splint or cast and the bag. ? Leave the ice on for 20 minutes, 2???3 times a day. ? Remove the ice if your skin turns bright red. This is very important. If you cannot feel pain, heat, or cold, you have a greater risk of damage to the area. ? Move your fingers often to reduce stiffness and swelling. ? Raise (elevate) the injured area above the level of your heart while you are sitting or lying down. Activity ? Rest your wrist as told by your health care provider. Do not do things that cause pain. ? Ask your health care provider when it is safe to drive if you have a splint, brace, or cast on yourwrist. ? Do exercises as told by your health care provider. ? Return to your normal activities as told by your health care provider. Ask your health care provider what activities are safe for you. General instructions ? Take vyxw-lzy-pimncld and prescription medicines only as told by your health care provider. ? Do not use any products that contain nicotine or tobacco, such as cigarettes, e- cigarettes, and chewing tobacco. These can delay healing. If you need help quitting, ask your health care provider. ? Keep all follow-up visits. This is important. Contact a health care provider if: ? Your pain, bruising, or swelling gets worse. ? Your skin becomes red, gets a rash, or has open sores. ? Your pain does not get better or it gets worse. Get help right away if: ? You have a new or sudden sharp pain in the hand, arm, or wrist. ? You have tingling or numbness in your hand. ? Your fingers turn white, very red, or cold and blue. ? You cannot move your fingers. Summary ? A wrist sprain is damage to ligaments in your wrist. ? Wrist sprains can range from mild to severe. ? Return to your normal activities as told by your health care provider. Ask your health care provider what activities are safe for you. ? You may need to wear a splint, brace, or cast for a short period of time. This information is not intended to replace advice given to you by your health care provider. Make sure you discuss any questions you have with your health care provider. Document Revised: 03/19/2021 Document Reviewed: 03/19/2021 [facility] Patient Education ?? 2022 [employer] Electronically Signed on: 09/09/2023 14:50 EDTSigned by:FLETCHER
--- OUTSIDE RECORDS SUMMARY | 2024-10-20 17:15 | XMS_ITS | Continuity of Care Document ---
Author Organization [facility] Address [address] [place] [address] Encounter [facility] NBR [id number] Date(s): 09/09/23 - 09/09/23 [facility] [address] [place] [address]- Encounter Diagnosis Unspecified injury of right wrist, hand and finger(s), initial encounter(Final) - Discharge Disposition: Home or Self Care Attending Physician: Trixie Mukherjee PA-C Admitting Physician: Trixie Mukherjee PA-C Allergies, Adverse Reactions, Alerts No Known Allergies Medications DilTIAZem (Eqv-Cardizem CD) 300 mg/24 hours [...] 0 Refill(s) Start Date: 09/09/23 Status: Ordered Results Radiology Reports * Exam Date Time Procedure Performing Provider Status 09/09/23 3:00 PM XR Wrist Complete 3+ Views Right Joan Leger; Auth (Verified) Notes: (XR Wrist Complete 3+ Views Right) Reason For Exam: right wrist, thumb pain after injury 2 months ago XR Wrist Complete 3+ Views Right EXAM DESCRIPTION: XR Wrist Complete 3+ Views Right 09/09/2023 INDICATION: RIGHT WRIST, THUMB PAIN AFTER INJURY 2 MONTHS AGO COMPARISON: None FINDINGS: No acute fracture, dislocation or bone destructive process. Joint spaces are maintained. No radiographic foreign bodies are seen. IMPRESSION: 1. No acute fracture, dislocation or bone destructive process. JOB #: [id number] Final Signed by: Abimael Mathew MD Signed (Electronic Signature): 09/09/2023 3:17 pm Social History Social History Type Response Sex Female
[2024-10-20 17:16] LABS: Anion Gap 6.4 mmol/L (3-11); BUN 16 mg/dL (7-18); CO2 28.6 mmol/L (21.0-32.0); CREATININE 0.6 mg/dL (0.55-1.02); Calcium 9.4 mg/dL (8.5-10.1); Chloride 103 mmol/L (98-107); Estimated GFR 95.31 (mL/min/1.73m2); Glucose 154 mg/dL (74-106); Potassium 4.3 mmol/L (3.5-5.1); Sodium 138 mmol/L (136-145)
--- OUTSIDE RECORDS SUMMARY | 2024-10-20 17:16 | XMS_ITS | Continuity of Care Document ---
Author Organization [facility] Address [address] [place] [address] Care Team Providers Care Book Binder Name Role Phone PHIL CH Software Firmware Engineer HANSEL QUINONEZ Neurologist [facility] Gynecological/Oncology [facility] Emergency Spill Response Technician [facility] Business Office Technician [phone] [facility] Cash Applications Associate CHELSEA ROMAN Primary Care Provider Unav ailable Assessment No assessment recorded. Plan of Treatment Reminders Order Date Submit Date Provider Last Modified By Organization Details Last Modified Time Details Appointments None recorded. Lab None recorded. Referral None recorded. Procedures None recorded. Surgeries None recorded. Imaging MAMMO, screening, digital, bilateral 2023 024 [facility] Xray, [address], [place], [address], 10:28:50 Medication Orders None recorded. Patient TargetsNo targets recorded. Patient Instructions Encounter Date Encounter Id Patient Instructions Last Modified By Organization Details Last Modified Time 08/20/2024 [id number] Discussed and explained advance directives such as standard forms to the {{patient caregiv er patient and caregiver}}. Face to face discussion lasted for a duration of ___ minutes. meir Not available 08/18/2024 07:58:30 Reason for Referral None Reported. Results Created Date Observation Date Name Description Value Unit Range Abnormal Flag Note LastModifiedBy Organization Detail LastModifiedTime 08/08/20 24 02/12/2023 imagi ng/di agnos tic resul t No observ ation record ed. Not Available 08/08 22:43:36 08/08/20 24 11/11/2022 XR, chest No observ ation record ed. Not Available 08/08 22:43:52 08/08/20 24 01/27/2023 MAMMO , barron flavia No observ ation record ed. Not Available 08/08 22:43:53 08/08/20 24 01/24/2022 MAMMO , scree flavia No observ ation record ed. Not Available 08/08 22:43:54 08/08/20 24 05/09/2022 XR, lumba r spine No observ ation record ed. Not Available 08/08 22:43:57 08/08/20 24 11/11/2022 XR, chest No observ ation record ed. Not Available 08/08 22:44:00 08/08/20 24 08/19/2023 imagi ng/di agnos tic resul t No observ ation record ed. Not Available 08/08 22:44:02 08/08/20 24 04/14/2023 imagi ng/di agnos tic resul t No observ ation record ed. Not Available 08/08 22:44:03 08/08/20 24 02/15/2021 XR, chest No observ ation record ed. Not Available 08/08 22:44:04 08/08/20 24 03/05/2022 CT, abdom en No observ ation record ed. Not Available 08/08 22:44:05 08/08/20 24 08/21/2023 bone densi ty No observ ation record ed. Not Available 08/08 22:44:07 08/08/20 24 12/31/2018 bone densi ty No observ ation record ed. Not Available 08/08 22:44:08 08/08/20 24 03/13/2021 CT, chest No observ ation record ed. Not Available 08/08 22:44:10 08/08/20 24 01/11/2021 imagi ng/di agnos tic resul t No observ ation record ed. Not Available 08/08 22:44:31 08/08/20 24 01/11/2021 imagi ng/di agnos tic resul t No observ ation record ed. Not Available 08/08 22:44:36 08/08/20 24 01/01/2021 imagi ng/di agnos tic resul t No observ ation record ed. Not Available 08/08 22:44:49 08/08/20 24 03/01/2021 imagi ng/di agnos tic resul t No observ ation record ed. Not Available 08/08 22:44:55 08/08/20 24 02/21/2021 imagi ng/di agnos tic resul t No observ ation record ed. Not Available 08/08 22:44:57 08/08/20 24 03/16/2021 imagi ng/di agnos tic resul t No observ ation record ed. Not Available 08/08 22:44:58 08/08/20 24 02/24/2023 imagi ng/di agnos tic resul t No observ ation record ed. Not Available 08/08 22:45:00 08/08/20 24 03/14/2021 imagi ng/di agnos tic resul t No observ ation record ed. Not Available 08/08 22:45:48 08/08/20 24 02/15/2021 imagi ng/di agnos tic resul t No observ ation record ed. Not Available 08/08 22:45:57 08/08/20 24 03/12/2021 imagi ng/di agnos tic resul t No observ ation record ed. Not Available 08/08 22:45:59 08/08/20 24 05/28/2022 imagi ng/di agnos tic resul t No observ ation record ed. Not Available 08/08 22:47:05 08/08/20 24 03/17/2020 imagi ng/di agnos tic resul t No observ ation record ed. Not Available 08/08 22:47:06 08/08/20 24 12/09/2022 US, pelvi s, trans abdom inal + trans vagin al No observ ation record ed. Not Available 08/08 22:47:09 08/08/20 24 03/17/2020 imagi ng/di agnos tic resul t No observ ation record ed. Not Available 08/08 22:47:10 08/08/20 24 02/12/2023 XR, chest No observ ation record ed. Not Available 08/08 22:47:16 09/07/20 24 09/07/2024 XR, chest , 2 view Patien t Name: France Saldaña Unit #: [id number] Loc: DI Orderi ng Provid er: Carin maldonado-Paramjit w,Gee harding Accoun t #: [id number] Status : REG CLI Primar y Care Provid er: [facility],T al Date of Exam: 08/24 04/16 Sex: F Admiss ion Date: : 1949 Age: 74 Exam(s ) XR CHEST 2V PA LATERA L EXAM: XR CHEST 2V PA LATERA L CLINIC AL HISTOR Y: CHRONI C COUGH, R05.3 TECHNI QUE: 2D digita l imagin g was perfor med of the chest. Two images were obtain ed. PA and latera l views were obtain ed. COMPAR VJ: CR XR CHEST 2V PA LATERA L from 2021 CR XR PORTAB LE CHEST AP from 2023 FINDIN GS: MEDIAS TINUM: Normal . HEART: Normal . PULMON HOLDEN VASCUL ATURE: Normal . LUNGS: Clear. PLEURA L SPACE: No pleura l effusi on or pneumo thorax . BONE:W ithin normal limits for the patien t's age. OTHER FINDIN GS:Nor mal. IMPRES AISLINN: No acute pulmon holden findin gs. DATA REPOSI TORY: RADIAT ION DOSE DELIVE RED: Ordere d By: Gee Owens CC: ------ ------ ------ ------ ------ ------ ------ ------ ------ ------ ------ ------ - Dictat ed By: Angel Moran M.D. 1021 1021 Transc ribed By: Angel Moran 1021 This is privil eged, confid ential inform ation intend ed only for the provid er named. Any use or distri bution by any person other than this provid er is strict ly prohib ited. If you receiv e this report in error, please notify us immedi ately at and return the origin al report to us at the addres s above. Thank- you. [email or web address] [facility] [address] [address] [place], [address] 09/21/2024 11:37:49 09/07/20 24 09/07/2024 MAMMO , scree flavia, digit al, bilat eral Patien t Name: France Saldaña Unit #: [id number] Loc: DI Orderi ng Provid er: Carin Crisostomo wGee Accoun t #: [id number] Status : REG CLI Primar y Care Provid er: [facility] Date of Exam: 08/24 04/16 Sex: F Admiss ion Date: : 1949 Age: 74 Exam(s ) MG MAMMO SCREEN ING EXAM: MG MAMMO SCREEN ING CLINIC AL HISTOR Y: SCREEN ING, Z12.31 TECHNI QUE: Bilate ral full field digita l CC and MLO mammog raphic images were obtain ed with 3D tomosy nthesi s and utiliz ing comput er aided detect ion (CAD). COMPAR VJ: Availa ble for compar vj. FINDIN GS: Masses /Archi tectur al Distor tion: None seen. Microc alcifi cation s: No suspic ious pleomo rphic- type are seen. Skin Thicke flavia/N ipple Retrac tion: None. IMPRES AISLINN: 1. No signif icant interv al change with no specif ic featur es of malign inocencia noted. 2. Unless there is more urgent need, screen ing mammog jesus is recomm ended, as per [employer] y guidel becka. BI-RAD S Catego ry 1 - Negati ve Breast Densit y - Catego ry B - Scatte red areas of fibrog landul ar densit y Breast densit y catego ry C or D implie s that the patien t has dense breast tissue . Dense breast tissue is very common and is not abnorm al but dense breast tissue can make it harder to find cancer on a mammog elvira. Also, dense breast tissue may increa se their breast cancer risk. This inform ation about the result of the mammog elvira report was provid ed to the patien t to raise their awaren ess. Use this report when you speak with the patien t about their risks for breast cancer , which includ es their family histor y. At that time, you may recomm end for more screen ing tests (Ultra sound or MRI) as they might be useful based on their risk. A negati ve radiog raphic report should not delay biopsy if a domina nt or clinic ally suspic ious mass is presen t. Up to ten percen t of cancer s are not identi fied on mammog jesus. A negati ve report may reinfo rce clinic al impres aislinn. Adenos is and dense breast s may obscur e an underl hong neopla sm. False positi ve report s averag e 6 to 10%. Patien t will receiv e a letter notify ing them of these result s. Ordere d By: Carin Crisostomo wGee CC: ------ ------ ------ ------ ------ ------ ------ ------ ------ ------ ------ ------ - Dictat ed By: Angel Moran M.D. 1127 Transc ribed By: Angel Moran 1127 This is privil eged, confid ential inform ation intend ed only for the provid er named. Any use or distri bution by any person other than this provid er is strict ly prohib ited. If you receiv e this report in error, please notify us immedi ately at and return the origin al report to us at the addres s above. Thank- you. [email or web address] [facility] Xray [address], [place], [address], 09/21/2024 10:30:01 Result Notes None recorded. Problems Name Problem SNOMED Code Status Onset Date Resolution Date Notes Provider Name and Address Organization Details Recorded Time Hyperlip idemia 06140858 Active 2000 Problem Code: E78.5; Problem Code Type: ICD-10; CHELSEA DUARTE, PROPOSAL REP- [address], [place], [address] , [facility] 4 13:56:18 Psoriasi s 0026467 Active 2005 Problem Code: L40.9; Problem Code Type: ICD-10; Not Available [facility] 3 04:35:28 Abnormal finding on evaluati on procedur e 928738649 Active 1998 Problem Code: R87.89; Problem Code Type: ICD-10; Not Available [facility] 3 04:35:28 Divertic vera of intestin e 29017998 Active 2010 Problem Code: K57.90; Problem Code Type: ICD-10; Not Available [facility] 3 04:35:28 Granulom a annulare 37421771 Active 2010 Problem Code: L92.0; Problem Code Type: ICD-10; Not Available [facility] 3 04:35:28 Nicotine dependen ce 04603955 Active 2005 Problem Code: Z87.891; Problem Code Type: ICD-10; Not Available [facility] 3 04:35:28 Dizzines s and giddines s 642467557 Active 2014 Problem Code: R42; Problem Code Type: ICD-10; Not Available [facility] 3 04:35:28 Adult health examinat ion Active 2015 Problem Code: Z00.00; Problem Code Type: ICD-10; Not Available [facility] 3 04:35:29 Gastroes ophageal reflux disease without esophagi tis 040339683 Active 2015 Problem Code: K21.9; Problem Code Type: ICD-10; CHELSEA DUARTE, PROPOSAL REP-BC [address], [place], [address] , [facility] 4 13:56:12 Obesity 431179402 Active 2015 Problem Code: E66.9; Problem Code Type: ICD-10; Not Available [facility] 3 04:35:29 Paroxysm al atrial fibrilla tion 302904794 Completed 201608/25/2024 11/29/19 23 - Comments only - Chelsea MCMANUS-VISH - - Her palpitat ions have been more frequent during recent viral illness, but no differen t in quality since her afib diagnosi s. - Advised her to monitor symptoms , seek emergent care for concerni ng symptoms beyond her usual intensit y or duration . She has a cardiolo gy follow up at [facility] in January, and will discuss this at that time. - No respirat ory distress , LE edema, cough today Problem Code: I48.0; Problem Code Type: ICD-10; CHELSEA DUARTE, PROPOSAL REP-BC [address], [place], [address] , [facility] 4 13:56:53 Atrophic vaginiti s 19925669 Active 2016 Problem Code: N95.2; Problem Code Type: ICD-10; Not Available [facility] 3 04:35:29 Eczema 23173231 Active 2016 Problem Code: L30.9; Problem Code Type: ICD-10; Not Available [facility] 3 04:35:29 Senile osteopor osis 86349451 Completed 201611/04/2023 10/25/20 20 - Comments only - Dorita Zimmerman [employer] SURVEYOR - Endocrin ology to start alendron ate 70 mg weekly. Consider Reclast if trouble with L1 drawn 8, third choice would be Prolia injectio n every 6 months. 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 Problem Code: R25.1; Problem Code Type: ICD-10; Not Available [facility] 4 05:34:31 Obstruct lynn sleep apnea syndrome 15549535 Active 201902/22/20 21 - Comments only - Casi Smith PA-C - -Does routinel y use CPAP however was unable to do so last night given discomfo rt with shortnes s of breath. Problem Code: G47.33; Problem Code Type: ICD-10; CHELSEA DUARTE, YONATHAN-BC [address], [place], [address] , [facility] 4 13:56:28 History of polyp of colon 449082666 Active 2020 Problem Code: Z86.010; Problem Code Type: ICD-10; Not Available [facility] 3 04:35:30 Low back pain 700661125 Active 2020 Problem Code: M54.5; Problem Code Type: ICD-10; Not Available [facility] 3 04:35:30 Major depressi on, single episode 24240510 Completed 202009/24/2023 Problem Code: F32.9; Problem Code Type: ICD-10; Not Available [facility] 4 05:34:32 Insomnia 575444018 Active 2021 Problem Code: G47.00; Problem Code Type: ICD-10; Not Available [facility] 3 04:35:31 Kidney stone 57158370 Completed 202101/29/2024 Problem Code: N20.0; Problem Code Type: ICD-10; Dorita ramirez [facility] 4 08:12:35 Disorder of adrenal gland 85319713 Active 2021 Problem Code: E27.8; Problem Code Type: ICD-10; Not Available [facility] 3 04:35:31 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 391015423 Active 202110/01/20 22 - Comments only - Dorita Zimmerman - [facility] Mohs surgery Problem Code: C44.320; Problem Code Type: ICD-10; Not Available [facility] 3 04:35:31 Screenin g for malignan t neoplasm of breast Active 2021 Problem Code: Z12.39; Problem Code Type: ICD-10; Not Available [facility] 3 04:35:31 Non-scar ring alopecia 650538166 Completed 202109/24/2023 Problem Code: L65.9; Problem Code Type: ICD-10; Not Available [facility] 4 05:34:31 Wheezing 05503791 Completed 202109/24/2023 Problem Code: R06.2; Problem Code Type: ICD-10; Not Available [facility] 4 05:34:33 Postmeno pausal bleeding 60773283 Completed 202108/25/2024 Hysterec ishmael April 2024 01/17/20 23 - Comments only - Dorita Zimmerman [employer] SUR[employer]OR - 12/2022 obgyn hospitalist physician: US shows endometr ial thickeni ng w/negati ve endometr ial sampling , start Aygestin BID X 3 months then repeat US- f/u w/ GATE ATTENDANT at that time Problem Code: N95.0; Problem Code Type: ICD-10; CHELSEA SANDOVAL REW, PROPOSAL REP-BC [address], [place], [address] , [facility] 4 13:57:19 Granulom atous disorder of the skin and subcutan eous tissue 861285269 Completed 201008/20/2023 10/01/20 22 - Comments only - Dorita Zimmerman COUNTY SURVEYOR - [facility] derm: Instruct ed patient to RTC if conditio n worsens; would consider ILK or potent topical steroid (BID for 2 weeks then 2 weeks off); patient prefers no treatmen t at this time Problem Code: L92.9; Problem Code Type: ICD-10; Not Available [facility] 3 04:35:33 Gastroes ophageal reflux disease 695236432 Completed 200308/20/2023 Not Available [facility] 3 04:35:33 Benign neoplasm of colon 13672369 Completed 202008/20/2023 Problem Code: D12.6; Problem Code Type: ICD-10; Not Available [facility] 3 04:35:33 Snoring 62659483 Completed 201901/01/2021 Problem Code: R06.83; Problem Code Type: ICD-10; Not Available [facility] 3 04:35:34 Mammogra phy abnormal 819634904 Completed 199408/20/2023 Not Available [facility] 3 04:35:34 Pain of right lower leg 50079954463 9108 Completed 201906/08/2020 Problem Code: M79.661; Problem Code Type: ICD-10; Not Available [facility] 3 04:35:34 Osteopor osis 47054138 Completed 200912/02/2017 Not Available [facility] 3 04:35:34 Paroxysm al atrial fibrilla tion 344552699 Completed 201406/08/2020 Problem Code: I48.0; Problem Code Type: ICD-10; CHELSEA DUARTE, PROPOSAL REP-BC [address], [place], [address] [facility] 4 13:56:53 Low back pain 841256300 Completed 200308/20/2023 Not Available [facility] 3 04:35:35 Traumati c or non-trau matic injury 199065622 Completed 201906/08/2020 Problem Code: T14.90xA ; Problem Code Type: ICD-10; Not Available [facility] 3 04:35:35 Osteopor osis 96624042 Completed 201301/16/2019 Problem Code: 733.00; Problem Code Type: ICD-9; Not Available [facility] 3 04:35:35 Chest pain 67570291 Completed 201906/08/2020 Problem Code: R07.89; Problem Code Type: ICD-10; Not Available [facility] 3 04:35:35 Divertic ular disease 204829258 Completed 201008/20/2023 Not Available [facility] 3 04:35:35 Disorder of skin and/or subcutan eous tissue 41152624 Completed 202108/20/2023 Problem Code: L98.9; Problem Code Type: ICD-10; Not Available [facility] 3 04:35:36 Dyspnea 425277927 Completed 202010/01/2022 Problem Code: R06.02; Problem Code Type: ICD-10; Dorita ramirez, [facility] 4 09:02:24 Chest pain 02480702 Completed 202010/01/2022 Problem Code: R07.9; Problem Code Type: ICD-10; Not Available [facility] 3 04:35:36 Palpitat ions 26008288 Completed 201206/08/2020 Not Available [facility] 3 04:35:36 Breast composit ion 609164209 Completed 199410/01/2022 Not Available [facility] 3 04:35:36 History of clinical finding in subject 204564274 Completed 201012/02/2017 Not Available [facility] 3 04:35:36 Imaging of abdomen abnormal 006947991 Completed 202110/01/2022 Problem Code: R93.5; Problem Code Type: ICD-10; Not Available [facility] 3 04:35:37 Atypical squamous cells of undeterm ined signific ance on cervical Papanico laou smear 542571282 Completed 199808/20/2023 Problem Code: 795.01; Problem Code Type: ICD-9; Not Available [facility] 3 04:35:37 Impaired fasting glycemia 173449269 Completed 201603/15/2020 Problem Code: R73.01; Problem Code Type: ICD-10; Not Available [facility] 3 04:35:37 Acute pharyngi tis 636650278 Completed 201906/08/2020 Problem Code: J02.9; Problem Code Type: ICD-10; Not Available [facility] 3 04:35:37 Screenin g for malignan t neoplasm of colon Completed 201910/01/2022 Problem Code: Z12.11; Problem Code Type: ICD-10; Not Available [facility] 3 04:35:37 Bone density finding 448432037 Active 2016 Problem Code: M85.80; Problem Code Type: ICD-10; Not Available [facility] 4 05:34:26 Essentia l tremor 211530020 Active 2019 Problem Code: G25.0; Problem Code Type: ICD-10; Not Available [facility] 4 05:34:27 Pain of right wrist 79120191506 9100 Active 2022 Problem Code: M25.531; Problem Code Type: ICD-10; Not Available [facility] 4 05:34:27 Benign neoplasm of adrenal gland 65403259 Active 2022 Problem Code: D35.00; Problem Code Type: ICD-10; Not Available [facility] 4 05:34:27 Acute bronchit is 03938131 Completed 202208/05/2023 Problem Code: J20.9; Problem Code Type: ICD-10; Not Available [facility] 4 05:34:30 Dyspnea 428622087 Completed 202209/24/2023 Problem Code: R06.09; Problem Code Type: ICD-10; Not Available [facility] 4 05:34:30 Cough 56532140 Completed 202108/05/2023 Problem Code: R05.1; Problem Code Type: ICD-10; Not Available [facility] 4 05:34:31 Acute sinusiti s 93999382 Completed 202208/05/2023 Problem Code: J01.90; Problem Code Type: ICD-10; Not Available [facility] 4 05:34:33 Dizzines s and giddines s 960408565 Completed 202209/24/2023 Problem Code: R42; Problem Code Type: ICD-10; Not Available [facility] 4 05:34:33 Intracra nial hemorrha ge 5206669 Active 2023 large acute intra-ax ial hemorrha ge in the R occipita l lobe Mary Thibodeaux LPN null, [place] - [facility]. 4 06:59:55 Cerebral amyloid angiopat hy 488614313 Active 2023 Probable - ANTICOAG ULATION CONTRAIN DICATED CHELSEA RICHMOND-D REW, PROPOSAL REPMARION [address], [facility] [address] , [facility] 13:54:55 Chronic atrial fibrilla tion 294994431 Active 2023 Cannot take DOAC/ant icoagula tion due to probably cerebral amyloid angiopat hy. On [address], [facility] [address] , [facility] 13:56:01 Epigastr ic pain 16603321 Active [address], [place] [address] , [facility] 13:59:44 Chronic cough 59342087 Active [address], [place] [address] , [facility] 11:59:52 Problem Notes None recorded. Procedures Surgical History Date Name Laterality Status Provider Name and Address Organization Details Recorded Time 09/16/20 24 cardiac catheterization completed CHELSEA REDDY, [address], [place] [address], [facility] 09/22/2024 13:47:09 04/30/20 24 [address], [facility] [address], [facility] 08/25/2024 13:58:04 Imaging Results None recorded. Procedure Notes None recorded. Medical Equipment None Reported. Allergies Allergen ID Allergen Name Allergen Category Reaction Reaction Severity Criticality Documentation Date Start Date Code Code System Note Provider Name and Address Organization Details Recorded Time 22367 Fosamax medicatio n abdominal pain Not available high 04/29/2024 03705 5 RxNorm JANE Saravia, [facility] 06/06/202 4 10:06:15 62087 propranol ol medicatio n palpitati ons moderate unabletoasse ss 04/29/2024 8787 RxNorm presc ribed by Neuro logy for hiwot watts tremo r CHELSEA ESCALANTE [facility] [address], [place], [address] , [facility] 4 11:01:57 78927 Eliquis medicatio n other Not available high 08/25/20242023 09522 36 RxNorm intra crani al hemor rhage in setti ng of proba ble cereb ral amylo id angio alexia - ANTIC OAGUL ATION CONTR AINDI CATED CHELSEA ESCALANTE [facility] [address], [place], [address] , [facility] 4 13:52:20 00002 Xarelto medicatio n other severe high 08/25/20242023 19357 99 RxNorm intra crani al hemor rhage in setti ng of proba ble cereb ral amylo id angio alexia - ANTIC OAGUL ATION CONTR AINDI [facility] CHELSEA ESCALANTE [facility] [address], [place], [address] , [facility] 4 13:54:02 Medications Name Sig Start Date Stop Date Status Note LastModified by Organization Details LastModified Time Prescript ion - Renewal 08/20 completed med rf Not Available Not Available Not Available Flomax 0.4 mg capsule TAKE 1 TABLET QD X 3D 05/07 completed Not Available Not Available Not Available Cardizem CD 360 mg capsule,e xtended release Take 1 capsule by mouth once a day 01/22 completed Not Available Not Available Not Available metoprolo l succinate ER 50 mg tablet,ex tended release 1 TAB daily 06/03 completed Not Available Not Available Not Available prednison e 20 mg tablet Take 2 tablet by mouth every morning take with food 03/31 completed Not Available Not Available Not Available alendrona te 70 mg tablet Take 1 tab by mouth once weekly 01/01 completed by endocrin ology Not Available Not Available Not Available lovastati n 40 mg tablet TAKE ONE TABLET BY MOUTH EVERY NIGHT 06/01 completed HDC - stopped d/t bleeding risk in CAA Not Available Not Available Not Available Zithromax 250 mg tablet CAP .as dir 10/22 completed Not Available Not Available Not Available penicilli n V potassium 500 mg tablet Take 1 tablet by mouth three times a day for Acute sore throat 10/28 completed given by [facility] Not Available Not Available Not Available diltiazem ER 360 mg capsule,2 4 hr,extend ed release 1 daily 2013 active Not Available Not Available Not Avai lable aspirin 81 mg tablet,de layed release Take 1 tablet every day by oral route. 08/20 completed Rx started by [facility] neurolog y Not Available Not Available Not Available tramadol 50 mg tablet TAKE ONE TABLET BY MOUTH TWICE A DAY FOR BACK PAIN active Not Available Not Available No t Available acetamino phen 500 mg tablet TAKE 2 TABLETS BY MOUTH EVERY 6 HOURS NEEDED active Not Available Not Available No t Available triamcino lone acetonide 0.1 % topical cream Apply to affected area twice daily. 2 weeks. Then off for a week. 2018 active Not Available Not Available Not Avai lable Zantac 150 mg tablet BID 07/26 completed Not Available Not Available Not Available Aerochamb er MV spacer Use 03/11 completed Not Available Not Available Not Available propranol ol 10 mg tablet TAKE ONE TABLET BY MOUTH TWICE A DAY 11/26 completed Not Available Not Available Not Available calcium 600 mg (as calcium carbonate 1,500 mg) tablet take2 tablet daily 11/11 completed Not Available Not Available Not Available hydromorp lian 2 mg tablet TAKE HALF TABLET BY MOUTH EVERY 4 HOURS NEEDED FOR PAIN 06/01 completed Not Available Not Available Not Available Cardizem CD 240 mg capsule,e xtended release Take 2 tabs daily 2013 active Not Available Not Available Not Avai lable dexametha sone 1 mg tablet Take 1 tablet by mouth single dose take on the evening before blood test (11pm) 05/08 completed Not Available Not Available Not Available meclizine 25 mg tablet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
--- OUTSIDE RECORDS SUMMARY | 2024-10-20 17:16 | XMS_ITS | Summary of Care ---
Author Organization [facility] Address [address] [place] [address]- Encounter 05/08/24 - 05/13/24 [facility] [address] [place] [address]- [phone] Discharge Disposition: 06H Home with Home Health Care Attending Physician: Zachary GAMBOA, Abdulkadir Michel Admitting Physician: Zachary GAMBOA, Abdulkadir Michel Referring Physician: Gissell Velazco M.D. Allergies, Adverse Reactions, Alerts Substance Reaction Severity Status alendronate Active Percocet Hallucinations in several modalities at o nce Severe Active Medications cholecalciferol 25 mcg (1000 intl units) oral tablet 25 mcg = 1 tab, Tab, Oral, Daily, 30 tab, 0 Refill(s) Start Date: 05/08/24 Status: Ordered dilTIAZem 300 mg/24 hours oral capsule, extended release 300 mg = 1 cap, Cap-ER, Oral, Daily, 30 cap, 0 Refill(s) Start Date: 05/08/24 Status: Ordered HYDROmorphone 2 mg oral tablet 1 mg = 0.5 tab, Tab, Oral, q4hr PRN, 10 tab, 0 Refill(s), This is a courtesy prescription you are receiving upon discharge from our facility. Any ongoing requirements for opiate medical pain management must be addressed at the office of your primary... Start Date: 05/13/24 Status: Ordered Tums 500 mg oral tablet, chewable 500 mg = 1 tab, Tab-Chew, Oral, BID, 0 Refill(s) Start Date: 05/13/24 Status: Ordered Problem List Condition Confirmation Course Effective Dates Status H ealth Status Informant At risk of venous thromboembolus 1 Confirmed 05/08/24 Active Atrial fibrillation Confirmed Active Cerebral amyloid angiopathy Confirmed Active Hyperlipidemia Confirmed Active Obstructive sleep apnea Confirmed Active occipital intraparenchymal hemorrhage Confirmed Active 1Problem added by Discern Expert Rule: EBN_VTERISKPROB_3 Results Most recent to oldest [Reference Range]: 1 2 3 Creatinine Level 0.72 mg/dL (05/11/24 6:12 AM) 0.67 mg/dL (05/09/24 6:11 AM) eGFR CKD-EPI - CRD [>=60] >60 (05/11/24 6:12 AM) >60 (05/09/24 6:11 AM) WBC Instrument - CRD [3.98-10.04 x10^3/mcL] 10.03 x10^3/mcL (05/11/24 6:12 AM) 12.34 x10^3/mcL *HI* (05/10/24 5:45 AM) 16.25 x10^3/mcL *HI* (05/09/24 6:11 AM) RDW-SD - CRD 42.5 (05/11/24 6:12 AM) 42.5 (05/10/24 5:45 AM) 42.9 (05/09/24 6:11 AM) Estimated Creatinine Clearance 44.23 mL/min 1 (05/11/24 10:41 AM) 44.23 mL/min 2 (05/11/24 6:12 AM) 44.23 mL/min 3 (05/09/24 6:11 AM) WBC - CRD [3.98-10.04 x10^3/mcL] 10.03 x10^3/mcL (05/11/24 6:12 AM) 12.34 x10^3/mcL *HI* (05/10/24 5:45 AM) 16.25 x10^3/mcL *HI* (05/09/24 6:11 AM) RBC - CRD [3.93-5.22 x10^6/mcL] 4.91 x10^6/mcL (05/11/24 6:12 AM) 4.70 x10^6/mcL (05/10/24 5:45 AM) 5.01 x10^6/mcL (05/09/24 6:11 AM) MCV - CRD [82.0-100.8 fL] 90.8 fL (05/11/24 6:12 AM) 91.1 fL (05/10/24 5:45 AM) 90.4 fL (05/09/24 6:11 AM) MCH - CRD [25.6-32.2 pg] 29.9 pg (05/11/24 6:12 AM) 30.0 pg (05/10/24 5:45 AM) 30.1 pg (05/09/24 6:11 AM) MCHC - CRD [31.0-34.6 G/DL] 33.0 G/DL (05/11/24 6:12 AM) 32.9 G/DL (05/10/24 5:45 AM) 33.3 G/DL (05/09/24 6:11 AM) RDW - CRD [11.7-14.4 %] 12.7 % (05/11/24 6:12 AM) 12.7 % (05/10/24 5:45 AM) 13.1 % (05/09/24 6:11 AM) Platelets - CRD [139-379 x10^3/mcL] 279 x10^3/mcL (05/11/24 6:12 AM) 257 x10^3/mcL (05/10/24 5:45 AM) 268 x10^3/mcL (05/09/24 6:11 AM) NRBC - CRD 0.0 (05/11/24 6:12 AM) 0.0 (05/10/24 5:45 AM) 0.0 (05/09/24 6:11 AM) Sodium - CRD [136-143 mmol/L] 140 mmol/L (05/11/24 6:12 AM) 139 mmol/L (05/09/24 6:11 AM) Potassium - CRD [3.5-5.1 mmol/L] 4.2 mmol/L (05/11/24 6:12 AM) 3.7 mmol/L (05/09/24 6:11 AM) Chloride - CRD [101-111 mmol/L] 107 mmol/L (05/11/24 6:12 AM) 106 mmol/L (05/09/24 6:11 AM) Carbon Dioxide - CRD [21-32 mmol/L] 28 mmol/L (05/11/24 6:12 AM) 25 mmol/L (05/09/24 6:11 AM) BUN - CRD [6-26 mg/dL] 19 mg/dL (05/11/24 6:12 AM) 17 mg/dL (05/09/24 6:11 AM) BUN/Creat Ratio - CRD 26.4 (05/11/24 6:12 AM) 25.4 (05/09/24 6:11 AM) Creatinine, Enzymatic - CRD [0.50-1.07 mg/dL] 0.72 mg/dL (05/11/24 6:12 AM) 0.67 mg/dL (05/09/24 6:11 AM) Glucose - CRD [70-99 mg/dL] 111 mg/dL 4 *HI* (05/11/24 6:12 AM) 147 mg/dL 5 *HI* (05/09/24 6:11 AM) Calcium - CRD [8.3-10.1 mg/dL] 9.5 mg/dL (05/11/24 6:12 AM) 9.2 mg/dL (05/09/24 6:11 AM) Alkaline Phosphatase - CRD [45-117 units/L] 83 units/L (05/11/24 6:12 AM) ALT - CRD [12-78 units/L] 19 units/L (05/11/24 6:12 AM) AST - CRD [5-32 units/L] 12 units/L (05/11/24 6:12 AM) Bilirubin, Total - CRD [0.2-1.0 mg/dL] 0.6 mg/dL (05/11/24 6:12 AM) Total Protein - CRD [6.5-8.4 G/DL] 6.9 G/DL (05/11/24 6:12 AM) Albumin - CRD [3.4-4.9 G/DL] 3.2 G/DL *LOW* (05/11/24 6:12 AM) Globulin - CRD [2.7-4.7 G/DL] 3.7 G/DL (05/11/24 6:12 AM) Albumin/Globulin Ratio - CRD [0.9-2.3] 0.9 (05/11/24 6:12 AM) Anion Gap - CRD [2.0-11.0] 5.0 (05/11/24 6:12 AM) 8.0 (05/09/24 6:11 AM) Hematocrit - CRD [34.1-44.9 %] 44.6 % (05/11/24 6:12 AM) 42.8 % (05/10/24 5:45 AM) 45.3 % *HI* (05/09/24 6:11 AM) Hemoglobin - CRD [11.2-15.7 G/DL] 14.7 G/DL (05/11/24 6:12 AM) 14.1 G/DL (05/10/24 5:45 AM) 15.1 G/DL (05/09/24 6:11 AM) Auto Neutrophil - CRD 65.0 % (05/11/24 6:12 AM) 68.3 % (05/10/24 5:45 AM) 73.1 % (05/09/24 6:11 AM) Auto Lymphocyte - CRD 25.7 % (05/11/24 6:12 AM) 22.5 % (05/10/24 5:45 AM) 18.6 % (05/09/24 6:11 AM) Auto Monocyte - CRD 7.3 % (05/11/24 6:12 AM) 8.0 % (05/10/24 5:45 AM) 7.0 % (05/09/24 6:11 AM) Auto Eos - CRD 1.1 % (05/11/24 6:12 AM) 0.6 % (05/10/24 5:45 AM) 0.6 % (05/09/24 6:11 AM) Auto Basophil - CRD 0.4 % (05/11/24 6:12 AM) 0.2 % (05/10/24 5:45 AM) 0.2 % (05/09/24 6:11 AM) Imm Granulocyte - CRD 0.5 % (05/11/24 6:12 AM) 0.4 % (05/10/24 5:45 AM) 0.5 % (05/09/24 6:11 AM) Abs Imm Granulocyte - CRD [<=0.05 x10^3/mcL] 0.05 x10^3/mcL (05/11/24 6:12 AM) 0.05 x10^3/mcL (05/10/24 5:45 AM) 0.08 x10^3/mcL *HI* (05/09/24 6:11 AM) Abs Lymphocyte - CRD [1.18-3.74 x10^3/mcL] 2.58 x10^3/mcL (05/11/24 6:12 AM) 2.78 x10^3/mcL (05/10/24 5:45 AM) 3.03 x10^3/mcL (05/09/24 6:11 AM) Abs Monocyte - CRD [0.20-0.76 x10^3/mcL] 0.73 x10^3/mcL (05/11/24 6:12 AM) 0.99 x10^3/mcL *HI* (05/10/24 5:45 AM) 1.14 x10^3/mcL *HI* (05/09/24 6:11 AM) Abs Eosinophil - CRD [0.04-0.36 x10^3/mcL] 0.11 x10^3/mcL (05/11/24 6:12 AM) 0.08 x10^3/mcL (05/10/24 5:45 AM) 0.10 x10^3/mcL (05/09/24 6:11 AM) Abs Basophil - CRD [<=0.08 x10^3/mcL] 0.04 x10^3/mcL (05/11/24 6:12 AM) 0.03 x10^3/mcL (05/10/24 5:45 AM) 0.04 x10^3/mcL (05/09/24 6:11 AM) Absolute NRBC - CRD [<=0.01 x10^3/mcL] 0.00 x10^3/mcL (05/11/24 6:12 AM) 0.00 x10^3/mcL (05/10/24 5:45 AM) 0.00 x10^3/mcL (05/09/24 6:11 AM) MPV - CRD [8.97-11.96 fL] 10.10 fL (05/11/24 6:12 AM) 10.10 fL (05/10/24 5:45 AM) 10.80 fL (05/09/24 6:11 AM) Abs Neut - CRD [1.56-6.13 x10^3/mcL] 6.52 x10^3/mcL *HI* (05/11/24 6:12 AM) 8.41 x10^3/mcL *HI* (05/10/24 5:45 AM) 11.86 x10^3/mcL *HI* (05/09/24 6:11 AM) 1Result Comment: Calculated using method: Cockcroft-Gault (default) Calculated using Formula : 0.85*(140-ageInYears)*IBW/(72) Age: 74 (14287206393.0) Serum Creatinine: 0.72 mg/dL (08836804839.0) Height: 163 cm (57783088519.0) Weight: 82.4 kg (IBW = 55.098 kg) 2Result Comment: Calculated using method: Cockcroft-Gault (default) Calculated using Formula : 0.85*(140-ageInYears)*IBW/(72) Age: 74 (50545388451.0) Serum Creatinine: 0.72 mg/dL (71506964573.0) Height: 163 cm (00873423970.0) Weight: 82.4 kg (IBW = 55.098 kg) 3Result Comment: Calculated using method: Cockcroft-Gault (default) Calculated using Formula : 0.85*(140-ageInYears)*IBW/(72) Age: 74 (92537603997.0) Serum Creatinine: 0.67 mg/dL (56638092085.0) Height: 163 cm (04548689355.0) Weight: 82.4 kg (IBW = 55.098 kg) 4Result Comment: Impairment: Fasting glucose 100-125 mg/dL Diabetes Mellitus: Fasting glucose >=126 mg/dL Random glucose >=200 mg/dL 5Result Comment: Impairment: Fasting glucose 100-125 mg/dL Diabetes Mellitus: Fasting glucose >=126 mg/dL Random glucose >=200 mg/dL Vital Signs Most recent to oldest [Reference Range]: 1 2 3 Temperature Oral F [96.4-99.1 DegF] 97.7 DegF (05/13/24 7:01 AM) 97.6 DegF (05/13/24 5:44 AM) 97.5 DegF (05/12/24 7:35 PM) Peripheral Pulse Rate [60-100 bpm] 62 bpm (05/13/24 7:02 AM) 67 bpm (05/13/24 5:44 AM) 66 bpm (05/12/24 7:35 PM) Respiratory Rate [14-20 br/min] 16 br/min (05/13/24 7:02 AM) 17 br/min (05/13/24 5:44 AM) 16 br/min (05/12/24 7:35 PM) Blood Pressure [90-140/60-90 mmHg] 119/74mmHg (05/13/24 7:01 AM) 99/62mmHg (05/13/24 5:44 AM) 116/74mmHg (05/12/24 7:35 PM) Mean Arterial Pressure, Cuff 89 mmHg (05/13/24 7:01 AM) 75 mmHg (05/13/24 5:44 AM) 88 mmHg (05/12/24 7:35 PM) Extremity used to obtain blood pressure Right Arm (05/12/24 7:35 PM) Right Arm (05/12/24 8:08 AM) Right Arm (05/11/24 8:23 AM) Cuff Size. Medium (05/12/24 7:35 PM) Medium (05/12/24 8:08 AM) Medium (05/11/24 8:23 AM) Temperature Oral 36.5 DegC 1 (05/13/24 7:01 AM) 36.4 DegC 2 (05/13/24 5:44 AM) 36.4 DegC 3 (05/12/24 7:35 PM) 1Result Comment: Charted by SYSTEM secondary to charting of Temperature Oral F on a Vitals Monitor. Rule: VITALSLINK_CALCULATIONS_2 2Result Comment: Charted by SYSTEM secondary to charting of Temperature Oral F on a Vitals Monitor. Rule: VITALSLINK_CALCULATIONS_2 3Result Comment: Charted by SYSTEM secondary to charting of Temperature Oral F on a Vitals Monitor. Rule: VITALSLINK_CALCULATIONS_2
--- OUTSIDE RECORDS SUMMARY | 2024-10-20 17:16 | XMS_ITS | Data Portability ---
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 COUNT W/DIF F MCHC 32.3 % 32.0-3 6.0 normal Not Available [address] [place], [address] 10/20/2024 17:07:12 10/20/20 24 10/20/2024 COMPL ETE BLOOD COUNT W/DIF F RDW 14.3 % 11.7-1 4.6 normal Not Available [address] [place], [address] 10/20/2024 17:07:12 10/20/20 24 10/20/2024 COMPL ETE BLOOD COUNT W/DIF F platelet count 467 10_3/ uL 130-40 0 high Not Available [address] [place], [address] 10/20/2024 17:07:12 10/20/20 24 10/20/2024 COMPL ETE BLOOD COUNT W/DIF F MPV 10.2 fL 8.0-11 .0 normal Not Available [address] [place], [address] 10/20/2024 17:07:12 10/20/20 24 10/20/2024 COMPL ETE BLOOD COUNT W/DIF F neutrophils % 67.8 % Not Available [address] [place], [address] 10/20/2024 17:07:12 10/20/20 24 10/20/2024 COMPL ETE BLOOD COUNT W/DIF F lymphocytes % 21.2 % Not Available [address] [place], [address] 10/20/2024 17:07:12 10/20/20 24 10/20/2024 COMPL ETE BLOOD COUNT W/DIF F monocytes % 7.6 % Not Available [address] [place], [address] 10/20/2024 17:07:12 10/20/20 24 10/20/2024 COMPL ETE BLOOD COUNT W/DIF F eosinophils % 1.5 % Not Available [address] [place], [address] 10/20/2024 17:07:12 10/20/20 24 10/20/2024 COMPL ETE BLOOD COUNT W/DIF F basophils % 0.4 % Not Available [address] [place], [address] 10/20/2024 17:07:12 10/20/20 24 10/20/2024 COMPL ETE BLOOD COUNT W/DIF F immature grans % 1.5 % Not Available [address] [place], [address] 10/20/2024 17:07:12 10/20/20 24 10/20/2024 COMPL ETE BLOOD COUNT W/DIF F nucleated RBC 0.0 % 0.0-0. 3 normal Not Available [address] [place], [address] 10/20/2024 17:07:12 10/20/20 24 10/20/2024 COMPL ETE BLOOD COUNT W/DIF F absolute neutrophil count 7.38 10_3/ uL 1.2-6. 7 high Not Available [address] [place], [address] 10/20/2024 17:07:12 10/20/20 24 10/20/2024 COMPL ETE BLOOD COUNT W/DIF F absolute lymphocyte count 2.31 10_3/ uL 1.2-3. 4 normal Not Available [address] [place], [address] 10/20/2024 17:07:12 10/20/20 24 10/20/2024 COMPL ETE BLOOD COUNT W/DIF F absolute monocyte count 0.83 10_3/ uL 0.1-0. 8 high Not Available [address] [place], [address] 10/20/2024 17:07:12 10/20/20 24 10/20/2024 COMPL ETE BLOOD COUNT W/DIF F absolute eosinophil count 0.16 10_3/ uL 0.0-0. 7 normal Not Available [address] [place], [address] 10/20/2024 17:07:12 10/20/20 24 10/20/2024 COMPL ETE BLOOD COUNT W/DIF F absolute basophil count 0.04 10_3/ uL 0.0-0. 2 normal Not Available [address] [place], [address] 10/20/2024 17:07:12 05/05/20 24 05/05/2024 marck fowler am EKG PATIKIANA T NAME: France Saldaña UNIT #: [id number] ORDERI NG PROVID ER: Armando Villegas M.D. ACCOUN T #: [id number] PRIMAR Y CARE PROVID ER: KELLY SOLORZANO,PILY Oakley DATE/T DINORA OF SERVIC E : 1448 : 1949 KARINA PEÑA ON: ER ------ ------ --- APPROV ED REPORT ------ ------ -- Exam: Restin g ECG Reason for Exam: Slurre d speech Patikiana t Locati on: E HR:72 bpm ECG Measur ements Heart Rate 72 AXIS AR 180 P 37 QRSd 66 QRS -40 QT 363 T 62 QTc 397 Conclu mariya Sinus rhythm ...nor mal P axis, V-rate 60- 99 Inferi or infarc t, old... Q >35mS, II III aVF ____ Narrow comple x normal sinus rhythm at a rate of 72. Left axis deviat ion no signs of LVH based on voltag e criter ia. Interv als within normal limits . T wave invers ion in aVL. No ST segmen t abnorm alitie s. Inferi or Q waves. Compar ed to prior dated last year T wave invers ion has replac ed T wave flatte flavia in aVL. Inferi or Q waves are persis tent. No acute injury patter n. ------ ------ ------ ------ ------ ------ ------ ------ ------ ------ ------ ------ ------ ------ ------ ------ ---- ------ - E-Sign Date: E-Sign Time: 1501 [email or web address] [facility] [address] [place], [address] 05/31/2024 15:54:08 05/05/20 24 05/05/2024 x-ray imagi joan redd t Johana t Name: France Saldaña Unit #: [id number] Loc: ER Priscila Duncan er: Jaden beckwith,Armando Nolan Accoun t #: [id number] Status : PRE ER Primar y Care Provid er: Heck JOSEPHINE,T al Date of Exam: 04/24 01/17 Sex: F Admiss ion Date: : 1949 Age: 74 Exam(s ) XR PORTAB LE CHEST AP EXAM: XR PORTAB LE CHEST AP CLINIC AL HISTOR Y: Marilynn benavides speech . TECHNI QUE: 2D digita l imagin g was perfor med. COMPAR MURRAY: CR XR PORTAB LE CHEST AP from 2022 FINDIN GS: Single AP portab le view. Mild cardio megaly again noted. The medias tinum is not widene d. No new infilt rates nor pleura l effusi ons. No pulmon walt edema. IMPRES MARIYA: No acute pulmon walt findin gs on this single AP portab le view of the chest. DATA REPOSI TORY: RADIAT ION DOSE DELIVE RED: Ana d By: Armando Villegas M.D. CC: ------ ------ ------ ------ ------ ------ ------ ------ ------ ------ ------ ------ - Dictat ed By: Rafael Mcgregor M.D. 1557 1557 Transc ribed By: Balbir GAMBOA,Leida crow 1557 This is privil eged, confid ential inform ation intend ed only for the provid er named. Any use or distri bution by any person other than this provid er is strict ly prohib ited. If you receiv e this report in error, please notify us immedi ately at and return the origin al report to us at the addres s above. Thank- you. meir miller [facility] [address], [place], [address] 05/13/2024 07:25:44 05/05/20 24 05/05/2024 CT, head + brain , w/o contr ast Patien t Name: France Saldaña Unit #: [id number] Loc: ER Orderi ng Provid er: Armando Villegas M.D. Accoun t #: [id number] Status : PRE ER Primar y Care Provid er: Kelly [facility],T al Date of Exam: 04/24 01/17 Sex: F : 1949 Age: 74 Exam(s ) a CT:CT head wo Exam(s ) CT HEAD WO EXAM: CT HEAD WO CLINIC AL HISTOR Y: Sudden onset worst headac he of life. TECHNI QUE: Imagin g Protoc ol: Axial comput ed tomogr aphy images with hernandez l and sagitt al reform atted images were create d and review ed COMPAR MURRAY: No exams were availa ble for compar murray FINDIN GS: There are no skull fractu res. There is no fluid in the visual ized parana roberto sinuse s. There is a large acute intra- axial hemorr jeremiah in the right occipi vanna lobe which measur es approx imatel y 4.3 cm AP by 2.5 cm wide by 3 cm cranio caudal . There is some surrou nding white matter edema. No shift of midlin e struct ures. No subara chnoid blood. There is no blood within the ventri cular system nor within the basal cister ns. IMPRES MARIYA: Large acute intra- axial hemorr jeremiah in the right occipi vanna lobe as descri bed above. Report called by myself to ER physic carina 2023 at 3:35 p.m. RADIAT ION DOSE DELIVE RED: 858.89 mGy.cm Total DLP DATA REPOSI TORY: All CT scans at this facili ty are submit neymar to the Nation al Radiol ogy Data Regist ry (NRDR) Dose Index Regist ry (DIR) with the [place] ir[place] pal[place] of Radiol ogy (ACR). RADIAT ION OPTIMI ZATION : All CT scans at this facili ty use at least one of these dose optimi zation techni ques: automa neymar exposu re contro l; mA and/or kV adjust ment per patien t size (inclu ronald target ed exams where dose is matche d to clinic al indica tion); or iterat ronna recons tructi on. 611-0 026: Total DLP = 0.00 mGy-cm Ordere d By: Armando Villegas M.D. CC: ------ ------ ------ ------ ------ ------ ------ ------ ------ ------ ------ ------ ---- Dictat ed By: Rafael Mcgregor M.D. 1558 1557 Transc ribed By: Balbir GAMBOA,Leida crow 1557 This is privil eged, confid ential inform ation intend ed only for the provid er named. Any use or distri bution by any person other than this provid er is strict ly prohib ited. If you receiv e this report in error, please notify us immedi gordycande at and return the origin al report to us at the addres s above. Thank- you. [facility] [address], [place], [address] 09/30/2024 13:43:31 05/06/20 24 05/05/2024 elect mac fowler am EKG JOHANA Beckwith NAME: France Saldaña UNIT #: [id number] [facility] ER: Armando Villegas M.D. ACCOUN T #: [id number] PRIMMT Y [facility] ER: PILY MENDOZA NP DATE/T DINORA OF SERVIC E : 1447 : 1949 KARINA LUISITO LOCATI ON: ER ------ ------ --- APPROV ED REPORT ------ ------ -- Exam: Restin g ECG Reason for Exam: Marilynn benavides speech Johana t Locati on: E HR:72 bpm ECG Measur ements Heart Rate 72 AXIS AR 180 P 37 QRSd 66 QRS -40 QT 363 T 62 QTc 397 Conclu mariya Sinus rhythm ...nor mal P axis, V-rate 60- 99 Inferi or infarc t, old... Q >35mS, II III aVF ____ Narrow comple x normal sinus rhythm at a rate of 72. Left axis deviat ion no signs of LVH based on voltag e criter ia. Interv als within normal limits . T wave invers ion in aVL. No ST segmen t abnorm alitie s. Inferi or Q waves. Compar ed to prior dated last year T wave invers ion has replac ed T wave flatte flavia in aVL. Inferi or Q waves are persis tent. No acute injury idalia welch ------ ------ ------ ------ ------ ------ ------ ------ ------ ------ ------ ------ ------ ------ ------ ------ ---- ------ - E-Sign Date: E-Sign Time: 1501 ------ ------ --- ADDEND UM APPROV ED REPORT ------ ------ -- Exam: Restin g ECG Reason for Exam: Slurre d speech Patien t Locati on: E HR:72 bpm ECG Measur ements Heart Rate 72 AXIS AR 180 P 37 QRSd 66 QRS -40 QT 363 T 62 QTc 397 Conclu mariya Sinus rhythm ...nor mal P axis, V-rate 60- 99 Inferi or infarc t, old... Q >35mS, II III aVF ____ Narrow comple x normal sinus rhythm at a rate of 72. Left axis deviat ion no signs of LVH based on voltag e criter ia. Interv als within normal limits . T wave invers ion in aVL. No ST segmen t a bnorma lities . Inferi or Q waves. Compar ed to prior dated last year T wave invers ion has replac ed T wave flatte flavia in aVL. Inferi or Q waves are persis tent. No acute injury idalia welch LAFB,l ate transi tion Electr onical ly signed by: [id number] Cosign ed by: nohemy [facility] [address], [place], [address] 05/31/2024 15:55:17 08/08/20 24 02/12/2023 imagi ng/di agnos tic resul t No observ ation record ed. Not Available 08/08 22:43:36 08/08/20 24 11/11/2022 XR, chest No observ ation record ed. Not Available 08/08 22:43:52 08/08/20 24 01/27/2023 MAMMO , scree flavia No observ ation [...] Patien t Name: France Saldaña Unit #: [id number] Loc: DI Orderi ng Provid er: Carin ce-Paramjit wGee Accoun t #: [id number] Status : REG CLI [facility]ar [facility] Date of Exam: 08/24 04/16 [...] latera l views were obtain ed. COMPAR MURRAY: CR XR CHEST 2V PA LATERA L from 2021 CR XR PORTAB LE CHEST AP from 2023 FINDIN GS: MEDIAS TINUM: Normal . HEART: Normal . PULMON WALT VASCUL ATURE: Normal . LUNGS: Clear. PLEURA L SPACE: No pleura l effusi on or pneumo thorax . BONE:W ithin normal limits for the patien t's age. OTHER FINDIN GS:Nor mal. IMPRES MARIYA: No acute pulmon walt findin gs. DATA REPOSI TORY: RADIAT ION [...] at the addres s above. Thank- you. [email or web address] [facility] [address], [place], [address] 09/21/2024 11:37:49 09/07/2009/07/2024 MAMMO , scree flavia, digit al, bilat eral Patien t Name: France Saldaña Unit #: [id number] Loc: DI Orderi ng Provid er: Gee Owens Accoun t #: [id number] Status : REG CLI Primar y Care Provid er: Heck [facility],T al Date of Exam: 08/24 04/16 Sex: F Admiss ion Date: : 1949 Age: 74 Exam(s ) MG MAMMO SCREEN ING EXAM: MAMMO SCREEN ING CLINIC AL HISTOR Y: SCREEN ING, Z12.31 TECHNI QUE: Bilate ral full field digita l CC and MLO mammog raphic images were obtain ed with 3D tomosy nthesi s and utiliz ing comput er aided detect ion (CAD). COMPAR MURRAY: Availa ble for compar murray. FINDIN GS: Masses /Archi tectur al Distor tion: None seen. Microc alcifi cation s: No suspic ious pleomo rphic- type are seen. Skin Thicke flavia/N ipple Retrac tion: None. IMPRES MARIYA: 1. No signif icant interv al change [...] report may reinfo rce clinic al impres mariya. Adenos is and dense breast s may obscur e an underl hong neopla sm. False positi ve report s averag e 6 to 10%. Patien t will receiv e a letter notify ing them of these result sBertin Atkinspia d By: Gee Owens CC: ------ ------ [...] the addres s above. Thank- you. [email or web address] [facility] [address], [place], [address], 09/21/2024 10:30:01 Result Notes None recorded. Problems Name Problem SNOMED Code Status Onset Date Resolution Date Notes Provider Name and Address Organization Details Recorded Time Hyperlip idemia 84953596 Active 2000 Problem Code: E78.5; Problem Code Type: ICD-10; LEILA CARRENO-Omar DUARTE, [employer] [address], [place], [address] , [facility] 4 13:56:18 Psoriasi s 7502982 Active 2005 Problem Code: L40.9; Problem Code Type: ICD-10; Not Available [facility] 3 04:35:28 Abnormal finding on evaluati on procedur e 118796564 Active 1998 Problem Code: R87.89; Problem Code Type: ICD-10; Not Available [facility] 3 04:35:28 Divertic vera of intestin e 21154492 Active 2010 Problem Code: K57.90; Problem Code Type: ICD-10; Not Available [facility] 3 04:35:28 Granulom a debby 86008364 Active 2010 Problem Code: L92.0; Problem Code Type: ICD-10; Not Available [facility] 3 04:35:28 Nicotine dependen ce 57893670 Active 2005 Problem Code: Z87.891; Problem Code Type: ICD-10; Not Available [facility] 3 04:35:28 Dizzines s and giddines s 722104225 Active 2014 Problem Code: R42; Problem Code Type: ICD-10; Not Available [facility] 3 04:35:28 Adult health examinat ion Active 2015 Problem Code: Z00.00; Problem Code Type: ICD-10; Not Available [facility] 3 04:35:29 Gastroes ophageal reflux disease without esophagi tis 743393299 Active 2015 Problem Code: K21.9; Problem Code Type: ICD-10; LEILA DUARTE, [employer] [address], [place], [address] , [facility] 4 13:56:12 Obesity 952373487 Active 2015 Problem Code: E66.9; Problem Code Type: ICD-10; Not Available [facility] 3 04:35:29 Paroxysm al atrial fibrilla tion 544318014 Completed 201608/25/2024 11/29/19 23 - Comments only - Leila Carreno -Herson [employer] - - Her palpitat ions have been more frequent during recent viral illness, but no differen t in quality since her afib diagnosi s. - Advised her to monitor symptoms , seek emergent care for concerni ng symptoms beyond her usual intensit y or duration . She has a cardiolo gy follow up at [facility] in January, and will discuss this at that time. 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 Consider Reclast if trouble with L1 drawn 8, third choice would be Prolia injectio n every 6 months. 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 Problem Code: R25.1; Problem Code Type: ICD-10; Not Available [facility] 4 05:34:31 Obstruct ronna sleep apnea syndrome 61815151 Active 201902/22/20 21 - Comments only - Casi Smith PA-C - -Does routinel y use CPAP however was unable to do so last night given discomfo rt with shortnes s of breath. Problem Code: G47.33; Problem Code Type: ICD-10; LEILA DUARTE, [employer] [address], [place], [address] , [facility] 4 13:56:28 History of polyp of colon 752195563 Active 2020 Problem Code: Z86.010; Problem Code Type: ICD-10; Not Available [facility] 3 04:35:30 Low back pain 196093098 Active 2020 Problem Code: M54.5; Problem Code Type: ICD-10; Not Available [facility] 3 04:35:30 Major depressi on, single episode 64494052 Completed 202009/24/2023 Problem Code: F32.9; Problem Code Type: ICD-10; Not Available [facility] 4 05:34:32 Insomnia 418846774 Active 2021 Problem Code: G47.00; Problem Code Type: ICD-10; Not Available [facility] 3 04:35:31 Kidney stone 29413715 Completed 202101/29/2024 Problem Code: N20.0; Problem Code Type: ICD-10; Dorita ramirez [facility] 4 08:12:35 Disorder of adrenal gland 14934790 Active 2021 Problem Code: E27.8; Problem Code Type: ICD-10; Not Available [facility] 3 04:35:31 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 Mohs surgery Problem Code: C44.320; Problem Code Type: ICD-10; Not Available [facility] 3 04:35:31 Screenin g for malignan t neoplasm of breast Active 2021 Problem Code: Z12.39; Problem Code Type: ICD-10; Not Available [facility] 3 04:35:31 Non-scar ring alopecia 960881823 Completed 202109/24/2023 Problem Code: L65.9; Problem Code Type: ICD-10; Not Available [facility] 4 05:34:31 Wheezing 66309894 Completed 202109/24/2023 Problem Code: R06.2; Problem Code Type: ICD-10; Not Available [facility] 4 05:34:33 Postmeno pausal bleeding 29439607 Completed 202108/25/2024 Hysterec ishmael April 2024 01/17/20 23 - Comments only - Dorita Mendoza HOT SEALING MACHINE OPERATOR - 12/2022 mobile nurse: US shows endometr ial thickeni ng w/negati ve endometr ial sampling , start Aygestin BID X 3 months then repeat US- f/u w/ SYSTEMS DESIGNER at that time Problem Code: N95.0; Problem Code Type: ICD-10; LEILA SANDOVAL REW, [employer] [address], [place], [address] , [facility] 4 13:57:19 Granulom atous disorder of the skin and subcutan eous tissue 485360693 Completed 201008/20/2023 10/01/20 22 - Comments only - Dorita Mendoza HOT SEALING MACHINE OPERATOR - [facility] derm: Instruct ed patient to RTC if conditio n worsens; would consider ILK or potent topical steroid (BID for 2 weeks then 2 weeks off); patient prefers no treatmen t at this time Problem Code: L92.9; Problem Code Type: ICD-10; Not Available [facility] 3 04:35:33 Gastroes ophageal reflux disease 078152959 Completed 200308/20/2023 Not Available [facility] 3 04:35:33 Benign neoplasm of colon 76558264 Completed 202008/20/2023 Problem Code: D12.6; Problem Code Type: ICD-10; Not Available [facility] 3 04:35:33 Snoring 00045210 Completed 201901/01/2021 Problem Code: R06.83; Problem Code Type: ICD-10; Not Available [facility] 3 04:35:34 Mammogra phy abnormal 262733227 Completed 199408/20/2023 Not Available [facility] 3 04:35:34 Pain of right lower leg 45834409002 9108 Completed 201906/08/2020 Problem Code: M79.661; Problem Code Type: ICD-10; Not Available [facility] 3 04:35:34 Osteopor osis 77470892 Completed 200912/02/2017 Not Available [facility] 3 04:35:34 Paroxysm al atrial fibrilla tion 118257450 Completed 201406/08/2020 Problem Code: I48.0; Problem Code Type: ICD-10; LEILA DUARTE, [employer] [address], [place], [address] , [facility] 4 13:56:53 Low back pain 990102934 Completed 200308/20/2023 Not Available [facility] 3 04:35:35 Traumati c or non-trau matic injury 112231114 Completed 201906/08/2020 Problem Code: T14.90xA ; Problem Code Type: ICD-10; Not Available [facility] 3 04:35:35 Osteopor osis 31940501 Completed 201301/16/2019 Problem Code: 733.00; Problem Code Type: ICD-9; Not Available [facility] 3 04:35:35 Chest pain 54227940 Completed 201906/08/2020 Problem Code: R07.89; Problem Code Type: ICD-10; Not Available [facility] 3 04:35:35 Divertic ular disease 203976450 Completed 201008/20/2023 Not Available [facility] 3 04:35:35 Disorder of skin and/or subcutan eous tissue 51039766 Completed 202108/20/2023 Problem Code: L98.9; Problem Code Type: ICD-10; Not Available [facility] 3 04:35:36 Dyspnea 794004809 Completed 202010/01/2022 Problem Code: R06.02; Problem Code Type: ICD-10; [facility] 09[facility]:24 Chest pain 55758588 Completed 202010/01/2022 Problem Code: R07.9; Problem Code Type: ICD-10; Not Available [facility] 3 04:35:36 Palpitat ions 69842350 Completed 201206/08/2020 Not Available [facility] 3 04:35:36 Breast composit ion 797542973 Completed 199410/01/2022 Not Available [facility] 3 04:35:36 History of clinical finding in subject 846474844 Completed 201012/02/2017 Not Available [facility] 3 04:35:36 Imaging of abdomen abnormal 646028766 Completed 202110/01/2022 Problem Code: R93.5; Problem Code Type: ICD-10; Not Available [facility] 3 04:35:37 Atypical squamous cells of undeterm ined signific ance on cervical Papanico laou smear [id number] Completed 199808/20/2023 Problem Code: 795.01; Problem Code Type: ICD-9; Not Available [facility] 3 04:35:37 Impaired fasting glycemia 294875192 Completed 201603/15/2020 Problem Code: R73.01; Problem Code Type: ICD-10; Not Available [facility] 3 04:35:37 Acute pharyngi tis 518648461 Completed 201906/08/2020 Problem Code: J02.9; Problem Code Type: ICD-10; Not Available [facility] 3 04:35:37 Screenin g for malignan t neoplasm of colon Completed 201910/01/2022 Problem Code: Z12.11; Problem Code Type: ICD-10; Not Available [facility] 3 04:35:37 Bone density finding 160806227 Active 2016 Problem Code: M85.80; Problem Code Type: ICD-10; Not Available [facility] 4 05:34:26 [facility] tremor 967728097 Active 2019 Problem Code: G25.0; Problem Code Type: ICD-10; Not Available [facility] 4 05:34:27 Pain of right wrist 19195756840 9100 Active 2022 Problem Code: M25.531; Problem Code Type: ICD-10; Not Available [facility] 4 05:34:27 Benign neoplasm of adrenal gland 24323247 Active 2022 Problem Code: D35.00; Problem Code Type: ICD-10; Not Available [facility] 4 05:34:27 Acute bronchit is 34991868 Completed 202208/05/2023 Problem Code: J20.9; Problem Code Type: ICD-10; Not Available [facility] 4 05:34:30 Dyspnea 396199975 Completed 202209/24/2023 Problem Code: R06.09; Problem Code Type: ICD-10; Not Available [facility] 4 05:34:30 Cough 29815334 Completed 202108/05/2023 Problem Code: R05.1; Problem Code Type: ICD-10; Not Available [facility] 4 05:34:31 Acute sinusiti s 08722214 Completed 202208/05/2023 Problem Code: J01.90; Problem Code Type: ICD-10; Not Available [facility] 4 05:34:33 Dizzines s and giddines s 221929494 Completed 202209/24/2023 Problem Code: R42; Problem Code Type: ICD-10; Not Available [facility] 4 05:34:33 Intracra nial hemorrha ge 2582521 Active 2023 large acute intra-ax ial hemorrha ge in the R occipita l lobe Mary Thibodeaux LPN [facility], [place] [facility] 4 06:59:55 Cerebral amyloid angiopat hy 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 On ASA[address], [place], [address] , [facility] 4 13:56:01 Epigastr ic pain 69147385 Active [address], [place], [address] , [facility] 13:59:44 Chronic cough 74142697 Active [address], [facility] [address] , [facility] 11:59:52 Problem Notes None recorded. Procedures Surgical History Date Name Laterality Status Provider Name and Address Organization Details Recorded Time 09/16/20 24 cardiac catheterization completed DYAN ROBERTO [address], [facility] [address], [facility] 09/22/2024 13:47:09 04/30/20 [address], [facility] [address], [facility] 08/25/2024 13:58:04 Imaging Results Imaging Date Name Status LastModified by Organization Details LastModified Time 05/05/2024 electrocardiogram completed [email or web address] [place] [address] [place] [address] [place], [address] 05/31/2024 15:54:08 05/05/2024 x-ray imaging report completed meir [email or web address] [place], [address] 05/13/2024 07:25:44 05/05/2024 CT, head + brain, w/o contrast completed [email or web address] [place], [address] 09/30/2024 13:43:31 05/05/2024 electrocardiogram completed [email or web address] [address] [place], [address] 05/31/2024 15:55:17 02/12/2023 imaging/diagnostic result completed Information not available 08/08/2024 22:43:36 11/11/2022 XR, chest completed Information no t available 08/08/2024 22:43:52 01/27/2023 MAMMO, screening completed Informat ion not available 08/08/2024 22:43:53 01/24/2022 MAMMO, screening completed Informat ion not available 08/08/2024 22:43:54 05/09/2022 XR, lumbar spine completed Informat ion not available 08/08/2024 22:43:57 11/11/2022 XR, chest completed Information no t available 08/08/2024 22:44:00 08/19/2023 imaging/diagnostic result completed

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
--- OUTSIDE RECORDS SUMMARY | 2024-10-20 17:17 | XMS_ITS | Clinical Summary ---
Author Organization [facility] Address [address] [place] [address] Care Team Providers Care Healthcare Interpreter Name Role Phone SohailDorita mccurdy Yajaira SOLORZANO Primary Care Provider [phone] Hillary Tobin MD Unavailable [phone] Allergies Active Allergy Reactions Criticality Noted Date Comments Alendronate Sodium 03/04/2022 Contact Metal Agent 03/04/2022 Apixaban Other (See Comments) 08/09/2024 Patient ended up in hospital with brain bleed Glucose Nausea Only Medium 07/31/2020 Oxycodone-Acetaminoph en Other (See Comments) Medium 01/27/2019 Other reaction(s): hallucinations Sulfa (Sulfonamide Antibiotics) 03/16/2021 Medications cholecalciferol , Vitamin D3, 25 mcg (1,000 unit) tablet Take 1 Tablet by mouth daily. 12/10/2020 Active meclizine (ANTIVERT) 25 mg tablet 3 times daily as needed. 04/05/2022 Active traMADol (ULTRAM) 50 mg tablet Take 1 Tablet by mouth every 6 hours as needed for Pain. 10/27/2023 Active dilTIAZem (CARDIZEM CD) 300 mg ER capsule TAKE ONE CAPSULE BY MOUTH EVERY DAY 90 Capsule 3 03/01/2024 Active aspirin chewable 81 mg tablet Take 1 Tablet by mouth daily. Active Active Problems Problem Noted Date Diagnosed Date History of intracranial hemorrhage 08/16/2024 Cerebral amyloid angiopathy (CODE) 08/16/2024 Atrial tachycardia (HCC-CMS) 09/23/2021 PAC (premature atrial contraction) 09/23/2021 Lightheadedness 03/16/2021 Mixed hyperlipidemia 03/16/2021 Current use of [facility] antico[facility] Dyslipidemia 02/03/2020 Paroxysmal atrial fibrillation (HCC-CMS) 020 Encounters Date Type Department Care Team Description 08/09/2024 11:15 EDT Office Visit [facility] [address] [place] [address] Hillary Tobin MD Paroxysmal atrial fibrillation (HCC-CMS) (Primary Dx); PAC (premature atrial contraction); Mixed hyperlipidemia; Atrial tachycardia (HCC-CMS); History of intracranial hemorrhage; Cerebral amyloid angiopathy (CODE) from Last 3 Months Medical History Medical History Date Comments Dyslipidemia 02/03/2020 Paroxysmal atrial fibrillation (HCC-CMS) 02/03/20 20 Family History Medical History Relation Comments Heart Attack Brother Coronary Artery Disease Father Heart Attack Father Heart murmur Mother Heart Attack Sister Relation Status Comments Brother Father Mother Sister Social History Tobacco Use Types Packs/Day Years Used Date Smoking Tobacco: Former Cigarettes 3 20 0 11/24/1984 - 11/24/2004 Smokeless Tobacco: Never Tobacco Cessation:Counseling Given: Not Answered Alcohol Use Standard Drinks/Week Comments Not Currently 0 (1 standard drink = 0.6 oz pur e alcohol) Interpersonal Safety Answer Date Record ed Physically Hurt Never 06/25/2020 Verbally Threaten Not on file 06/25/2020 Comments Unknown Sex and Gender Information Value Date Recorded Sex Assigned at Not on file Legal Sex Female 18:23 EST Gender Identity Female 04/24/2020 16:01 EDT Sexual Orientation Not on file Obstetrics History Last Filed Vital Signs Vital Sign Reading Time Taken Comments Blood Pressure 120/70 08/09/2024 1135 EDT Pulse 76 08/09/2024 1135 EDT Temperature - - Respiratory Rate 18 04/28/2020 1334 EDT Oxygen Saturation 96% 08/09/2024 1103 EDT Inhaled Oxygen Concentration - - Weight 85.3 kg (188 lb) 08/09/2024 1103 EDT Height 149.9 cm (4' 11.02) 08/09/2024 1103 EDT Body Mass Index 37.95 08/09/2024 1103 EDT Plan of Treatment Upcoming Encounters Date Type Department Care Team (Late st Contact Info) Description 02/14/2025 14:30 EDT Office Visit [facility] [address] [place], [place] [id number] Hillary Tobin MD [address] [facility] [address] [place] [phone] Health Maintenance Due Date Last Done Comments Hepatitis C Screen 1950 RSV Immunization ( o r 60+ Years) (1 - Risk 60-74 years 1-dose series) 2012 COVID-19 Vaccine ( season) 07/25/202404/2023, 04/16/2022 Fall Risk Screening 11/11/2024 11/11/2023, 04/05/2022, 04/28/2020 [place] Care Teams Healthcare Interpreter Relationship Specialty Start Date End Date Dorita Zimmerman NP [address] [place] [phone] PCP - General 12/25/20 Hillary Tobin MD [address] [place] [address] [phone] Cardiovascular Disease 04/03/22
--- OUTSIDE RECORDS SUMMARY | 2024-10-20 17:17 | XMS_ITS | Encounter Summary ---
Author Organization [facility] Address [address] [place] [address] Care Team Providers Care Degreasing Solution Mixer Name Role Phone Unavailable Primary Care Provider Unavailabl e Encounter Details Date Type Department Care Team (Late st Contact Info) Description 02/06/2010 Results Only [facility] Services - [facility] ([facility]) [address] [place], [place] [id number] Brandi Noonan, JEANINE Social History Tobacco Use Types Packs/Day Years Used Date Smoking Tobacco: Never Assessed Comments Unknown Sex and Gender Information Value Date Recorded Sex Assigned at Not on file Legal Sex Female 18:23 EST Gender Identity Female 04/24/2020 16:01 EDT Sexual Orientation Not on file documented as of this encounter Plan of Treatment Upcoming Encounters Date Type Department Care Team (Late st Contact Info) Description 02/14/2025 14:30 EDT Office Visit [facility] [address] [place] [address] Hillary Tobin MD [address] [facility] [address] [place] [address] documented as of this encounter Procedures Procedure Name Priority Date/Time Associated Diagnosis Comments HPV DETECTION, HIGH RISK TYPES Routine 02/06/2010 12:16 EDT CYTOPATHOLOGY Routine 02/06/2010 0:00 EDT documented in this encounter Results * HUMAN PAPILLOMA VIRUS DNA TEST (02/06/2010 12:16 EDT) Specimen Description Cervix, ThinPrep vial [facility] Result Negative for HPV types 16, 18, 31, 33, 35, 39, 45, 51, 52, 56, 58, 59, and 68. [facility] Report Status Final 2010 [facility] 02/06/2010 12:1 6 EDT 02/09/2010 12:16 EDT us Brandi Noonan NP MICROBIOLOGY - GENERAL [facility] Final Result Performing Organization Address City/State/[facility] Co de Phone Number [facility] [address] [place] [address] * CYTOPATHOLOGY (02/06/2010 0:00 EDT) Pathology Report: CYTOPATHOLOGY REPORT ? Reports generated via electronic interface contain original data; ? however they are lacking the format of the original report. ? Caution should be taken when reading/interpreti ng unformatted reports. ? Name: ? KATINA BRUNO ? Accession #: ? [id number] ? : ? 1950 (Age: 59) ??F ?Collect Date: ? 02/06/2010 ? Location: ? [facility] ? Receive Date: ? 02/07/2010 ? Provider: ?BRANDI M ANGIE ASSEMBLY ROOM SUPERVISOR ? Copy to: ? Specimen/Source: ?Pap Test, Cervix/Endocervix, ThinPrep Imaging System ? with manual evaluation ? Last Menstrual Period: ? 2003 ? Hormonal/Contracep tive Status: ? Tubal ligation: bilateral ? Previous Gynecologic Pathology: ? ASC-US: , ASCUS - HPV negative, 2003, 2004, 2005 paps neg ? Other: ? HPVDX - HPV testing requested regardless of diagnosis on current ThinPrep Pap ?? test. ? SPECIMEN ADEQUACY ? Satisfactory for Evaluation ? - transformation zone component present ? GENERAL CATEGORIZATION ? Negative for Intraepithelial Lesion or Malignancy ? Document reviewed and electronically signed by: ? Lynan Lauro, CT(ASCP) ? Report Date: ??02/08/2010 16:06 ? End of Report ? [facility] 02/06/2010 02/07/2010 us Brandi Noonan NP PATHOLOGY ORDERABLES Final Re sult [facility] [address] [place] [address] documented in this encounter Visit Diagnoses Not on filedocumented in this encounter
--- OUTSIDE RECORDS SUMMARY | 2024-10-20 17:17 | XMS_ITS | Encounter Summary ---
Author Organization [facility] Address [address] [place] [address] Care Team Providers Care Rn Iv Therapy Name Role Phone Dorita Zimmerman Yajaira [facility] EAST ARCHEOLOGY PROFESSOR Primary Care Provider [phone] Reason for Referral * Cardiology (Routine/Next Available) - Specialty Report Received Specialty Diagnoses / Procedures [facility]erred To Contact Diagnoses Lightheadedness Paroxysmal atrial fibrillation (HCC-CMS) Procedures ZIO PATCH Hillary Tobin MD Phone: tel: fax: Referral ID Status Reason Start Date Expiration Date V isits Requested Visits Authorized [id number] Specialty Report Received 03/16/2021 1 1 Reason for Visit * Reason Comments Atrial Fibrillation Yearly F/U-Former Dr Bertin Lopez pt Dizziness lightheadedness Shortness of Breath Encounter Details Date Type Department Care Team (Latest Contact Info) Description 03/16/2021 9:00 EDT Office Visit [facility] [address] [place] [address] Hillary Tobin MD [address] [facility] [address] [place] [address] Lightheadedness (Primary Dx); Shortness of breath; Paroxysmal atrial fibrillation (HCC-CMS); Mixed hyperlipidemia; Current use of terminal carman anticoagulation; Class 2 obesity due to excess calories without serious comorbidity with body mass index (BMI) of 39.0 to 39.9 in adult; Essential hypertension Social History Tobacco Use Types Packs/Day Years Used Date Smoking Tobacco: Former Cigarettes 3 20 0 11/24/1984 - 11/24/2004 Smokeless Tobacco: Never Alcohol Use Standard Drinks/Week Comments Not Currently [...] on file documented as of this encounter Last Filed Vital Signs Vital Sign Reading Time Taken Comments Blood Pressure 120/60 03/16/2021 0842 EDT Pulse 73 03/16/2021 0842 EDT Temperature - - Respiratory Rate - - Oxygen Saturation 97% 03/16/2021 0842 EDT Inhaled Oxygen Concentration - - Weight 90.7 kg (200 lb) 03/16/2021 0842 EDT Height 149.9 cm (4' 11) 03/16/2021 0842 EDT Body Mass Index 40.4 03/16/2021 0842 EDT documented in this encounter Functional Status * Because of a physical, mental, or emotional condition, does this person have difficulty doing errands alone such as visiting a doctor's office or shopping? Answer Date of Assessment Author Yes 03/16/2021 8:47 EDT documented as of this encounter Mental Status * Because of a physical, mental, or emotional condition, does this person have serious difficulty concentrating, remembering, or making decisions? Answer Entry Date Author Yes 03/16/2021 8:47 EDT documented in this encounter Ordered Prescriptions Prescription Sig Dispense Quantity Refills Last Filled Start Date End Date dilTIAZem (CARDIZEM CD) 300 mg ER capsule Take 1 Cap by mouth daily. 90 Cap 3 03/16/2021 03/03/2023 dilTIAZem (CARDIZEM CD) 300 mg ER capsule Take 1 Cap by mouth daily. 90 Cap 3 03/16/2021 03/16/2021 documented in this encounter Progress Notes * Hillary Tobin MD - 03/16/2021 0900 EDT [facility] [place] Subjective: Chief Complaint(s): Atrial Fibrillation (Yearly F/U-Former Dr. Lopez pt), Dizziness (lightheadedness), and Shortness of Breath HPI: 71-year-old woman with a history of paroxysmal atrial fibrillation. Now referred by her PCP for EP evaluation regarding lightheaded spells and bradycardia findings on Holter EKG. ? She has been symptomatic with palpitations with rapid heart rates during episodes of A. fib. ZIOpatch done in the past showed AF burden of 12%, recent Holter without AF but occasional bradycardia down to 45/min, without clear symptom correlation. ?? Today in the office, she reports recurrent spells that occur several times a week, where she feels as if somebody is pulling a pillow over my face. She feels that she cannot breeze, with a chest ache in her upper chest and a feeling of lightheadedness, sometimes coming close to passing out. Theseepisodes can last up to 30 minutes before they spontaneously resolve. She reports an episode that occurred last Friday morning, 03/09/2021, at 7:30 AM, while wearing her Holter monitor. She was sitting at the breakfast table, having donut and coffee working on a puzzle on her computer when she suddenly felt that she could not breathe and became very lightheaded, this again lasted 30 minutes beforeit slowly resolved. She has never completely passed out with these spells. Up to a year ago she felt recurrent palpitations, attributed to PAF spells, this has not occurred recently. She does admit to gaining a significant amount of weight during the pandemic. Denies exertional chest pain, shortness of breath at rest, syncope, orthopnea, PND, fevers, chills, digestive troubles, bleeding issues. She had a GI bleeding issue in the past that resolved after polyp removal. Received both Covid vaccinations (Moderna). ?? Current Outpatient Medications Medication Sig Dispense Refill ??? apixaban (ELIQUIS) 5 mg tablet 1 tab(s) orally 2 times a day ??? ATROVENT HFA 17 mcg/actuation inhaler ??? calcium carbonate/vitamin D3 (CALCIUM 500 + D ORAL) Take by mouth daily. ??? cholecalciferol, Vitamin D3, 25 mcg (1,000 unit) tablet Take 1,000 Units by mouth daily. ??? dilTIAZem (CARDIZEM CD) 360 mg ER capsule Take 1 Cap by mouth daily. ??? lovastatin (MEVACOR) 40 mg tablet Take 40 mg by mouth at bedtime. ??? meclizine (ANTIVERT) 25 mg tablet every 6 hours. ??? [facility] No current facility-administered medications for this visit. ?? Past medical history Past Medical History: Diagnosis Date ??? Dyslipidemia 02/03/2020 ??? Paroxysmal atrial fibrillation (HCC-CMS) 02/03/2020 ?? No past surgical history on file. Medication allergies Allergies Allergen Reactions ??? Oxycodone-Acetaminophen Other (See Comments) ? Other reaction(s): hallucinations ? Fhx/ Shx Social History ?? Occupational History ??? Not on file Tobacco Use ??? Smoking status: Former Smoker ? Packs/day: 3.00 ? Years: 20.00 ? Pack years: 60.00 ? Last attempt to quit: 11/24/2004 ? Years since quittin.4 ??? Smokeless tobacco: Never Used Substance and Sexual Activity ??? Alcohol use: Not Currently ??? Drug use: Not on file ??? Sexual activity: Not on file ?? Family History Problem Relation Age of Onset ??? Heart murmur Mother ??? Coronary Artery Disease Father ??? Heart Attack Father 45 ??? Heart Attack Sister ??? Heart Attack Brother Data review: Echo 2013 - Normal. EF 65%. ?? Stress Testing ETT 2017 - Normal. ? EKG (04/28/2020) - sinus rhythm. Rate [address] or T wave changes. QTc 408 ms. Nuclear stress test 01/11/2021: No evidence of ischemia. Echocardiogram 03/14/2021: Normal LV size, thickness and function, LVEF 60%, no regional wall motionmotion abnormalities. Normal RV size and function, normal atrial size, no significant valve disease. Holter monitor 03/12/2021 sinus rhythm, average heart rate 67 bpm, minimum heart rate 45 bpm, maximal heart rate 97 bpm. Several self-limited atrial runs, longest 7 beats, no AF, no pauses greater than 3 seconds, no high-grade AV block. Chest CT 03/13/2021: Mild pulmonary emphysematous changes. ?? I have reviewed current problem list and current medications. ROS: A 10-system ROS was performed, pertinent items as mentioned in HPI, otherwise negative. ROS Objective: Examination: Vitals: BP 120/60 (BP Cuff Location: Right arm, BP Patient Position: Sitting, BP Cuff Sizes: Adult, large) Pulse 73 Ht (!) 149.9 cm (59) Wt 90.7 kg (200 lb) SpO2 97% BMI 40.40 kg/m?? Body mass index is 40.4 kg/m??. Physical Exam GENERAL APPEARANCE: no acute distress, pleasant, cooperative. HEENT EYES: conjunctiva clear, sclerae anicteric. NECK: supple, no JVD, no carotid bruit. CHEST: normal shape and expansion. HEART: regular rate and rhythm, normal S1S2, no murmurs, rub or gallop. LUNGS: clear to auscultation & percussion, good air entry bilaterally. ABDOMEN: soft, NT/ND, BS present. EXTREMITIES: no clubbing, no cyanosis, no edema. PERIPHERAL PULSES: carotid, radial, PT: 2+ bilaterally. SKIN: warm & dry. NEUROLOGIC EXAM: alert & oriented x3, nonfocal, normal speech, gait normal. Assessment & Plan: 1. Lightheadedness ZIO PATCH 2. Shortness of breath 3. Paroxysmal atrial fibrillation (HCC-CMS) ZIO PATCH 4. Mixed hyperlipidemia 5. Current use of terminal carman anticoagulation 6. Class 2 obesity due to excess calories without serious comorbidity with body mass index (BMI) of39.0 to 39.9 in adult 7. Essential hypertension 71-year-old woman with a history of paroxysmal atrial fibrillation. Now presents for EP evaluation regarding recurrent episodes of lightheadedness that dyspnea on exertion. Already had an extensive cardiac work-up at [facility] with normal echo and stress test. 1. Lightheadedness 2. Shortness of breath Recent Holter EKG with sinus rhythm, no recurrence of atrial fibrillation and no clear culprit arrhythmia. She states that she had a 30-minute lightheaded spell around 7:30 in the morning while wearing the Holter monitor. We will therefore try to obtain EKG tracings from [facility] for more detailed review. In the meantime I suggested to reduce diltiazem medication from 360 to 300 mg/day, as some of her symptoms could be iatrogenic. Will order ZioPatch for longer-term explaration of her spells. 3. Paroxysmal atrial fibrillation (HCC-CMS) She was previously symptomatic with palpitations. However, in recent months has not noticed AF. At this point she has no clear indication for antiarrhythmic therapy. On examination today her pulse is regular likely in sinus rhythm. ??Her CHADSVASC score is 3 for age, HTN and female gender. Continue Eliquis 5 mg twice daily.?Strongly encouraged her to increase activity levels and to optimize weight further. 4. Mixed hyperlipidemia Continue lovastatin therapy. PCP is monitoring lipids.? 5. Current use of terminal carman anticoagulation Adequately anticoagulated in the setting of her A. fib. I spent a total of 45 minutes on the date of this encounter meeting with the patient and reviewing documentation/coordinating care as described in the above note. No procedures were performed at the time of the visit. Hillary Tobin MD documented in this encounter Plan of Treatment Upcoming Encounters Date Type Department Care Team (Late st Contact Info) Description 02/14/2025 14:30 EDT Office Visit [facility] [address] [place] [id number] Hillary Tobin MD [address] [place] [address] [address] [place] [phone] Pending Results Name Type Priority Associated Diagnoses Date /Time ZIO PATCH Cardiac Services Routine Lightheadedness Paroxysmal atrial fibrillation (HCC-CMS) 03/16/2021 10:46 EDT Scheduled Orders Name Type Priority Associated Diagnoses Orde r Schedule ZIO PATCH Cardiac Services Routine Lightheadedness Paroxysmal atrial fibrillation (HCC-CMS) Expected: 03/16/2021 (Approximate), Expires: 05/16/2021 documented as of this encounter Visit Diagnoses Diagnosis Lightheadedness- Primary Dizziness and giddiness Shortness of breath Paroxysmal atrial fibrillation (HCC-CMS) Atrial fibrillation Mixed hyperlipidemia Current use of senior care anticoagulation Long-term (current) use of anticoagulants Class 2 obesity due to excess calories without serious comorbidity with body mass index (BMI) of 39.0 to 39.9 in adult Essential hypertension Unspecified essential hypertension documented in this encounter Discontinued Medications Medication Sig Discontinue Reason Start Date End Da te lovastatin (MEVACOR) 20 mg tablet 1 tab(s) orally once a day 03/16/2021 meclizine (ANTIVERT) 12.5 mg tablet 1 tab(s) orally 3 times a day, ONLY NEEDED FOR VERTIGO 03/16/2021 dilTIAZem (CARDIZEM CD) 360 mg ER capsule Take 1 Cap by mouth daily. Reorder 10/31/2020 03/16/2021 dilTIAZem (CARDIZEM CD) 300 mg ER capsule Take 1 Cap by mouth daily. Reorder 03/16/2021 03/16/2021 documented as of this encounter Historical Medications * This list may reflect changes made after this encounter. cholecalciferol, Vitamin D3, 25 mcg (1,000 unit) tablet Take 1 Tablet by mouth daily. 12/10/2020 calcium carbonate/vitamin D3 (CALCIUM 500 + D ORAL) Take by mouth daily. 08/09/2024 [facility] 03/15/2021 04/05/2022 ATROVENT HFA 17 mcg/actuation inhaler 03/15/2021 01/17/2023 meclizine (ANTIVERT) 25 mg tablet every 6 hours. 04/05/2022 lovastatin (MEVACOR) 40 mg tablet Take 1 Tablet by mouth at bedtime. 12/25/2020 08/09/2024 added in this encounter Care Teams Rn Iv Therapy Relationship Specialty Start Date End Date Dorita Zimmerman NP [address] [place] [phone] PCP - General 12/25/20 documented as of this encounter
--- OUTSIDE RECORDS SUMMARY | 2024-10-20 17:17 | XMS_ITS | Encounter Summary ---
Author Organization [facility] Address [address] [place] [address] Care Team Providers Care Research Soil Scientist Name Role Phone SohailDorita mccurdy Yajaira SOLORZANO Primary Care Provider [phone] Hillary Tobin MD Unavailable [phone] Encounter Details Date Type Department Care Team (Late st Contact Info) Description 06/26/2021 Lab Requisition [facility] Pathology & Laboratory Medicine - [facility] [address] [place] [address] Outr Resulting Lab, Provider Social History Tobacco Use Types Packs/Day Years [...] on file documented as of this encounter Functional Status * Because of [...] 03/16/2021 8:47 EDT documented in this encounter Plan of Treatment Upcoming Encounters Date Type Department Care Team (Late st Contact Info) Description 02/14/2025 14:30 EDT Office Visit [facility] Cardiology Clinic [address] [place], [place] [phone] Hillary Tobin MD 130 [facility] [address] [place] [address] documented as of this encounter Procedures Procedure Name Priority Date/Time Associated Diagnosis Comments SS-B (LA) ANTIBODY, IGG Routine 06/26/2021 14:33 EDT ZZHN SSA ANTIBODIES BY STELLA Routine 06/26/2021 14:33 EDT SM (MORAN) ANTIBODY, IGG Routine 06/26/2021 14:33 EDT PRODUCTION ASSEMBLY SUPERVISOR ANTIBODY, IGG Routine 06/26/2021 14: 33 EDT ANTI NUCLEAR AB (REBECA), IFA Routine 06/26/2021 14:33 EDT IGE Routine 06/26/2021 14:33 EDT documented in this encounter Results * IGE (06/26/2021 14:33 EDT) IgE 40 <158 IU/mL 06/27/2021 8:44 EDT [facility] Blood VENOUS BLOOD / Unknown 06/26/2021 14:33 EDT 06/26/2021 21:01 EDT us Provider Outr Resulting Lab CHEMISTRY & BLOOD GA S ORDERABLES Final Result [facility] [address] [place] [address] * PRODUCTION ASSEMBLY SUPERVISOR ANTIBODIES BY STELLA (06/26/2021 14:33 EDT) PRODUCTION ASSEMBLY SUPERVISOR Antibody 1.1 <20.0 Units 06/28/2021 13:45 EDT [facility] Comment: ? Negative: <20.0 Units ? Weak Positive: 20.0 - 39.9 Units ? Moderate Positive: 40.0 - 80.0 Units ? Strong Positive: >80.0 Units Results were obtained with the [employer] Quanta Lite PRODUCTION ASSEMBLY SUPERVISOR STELLA. PRODUCTION ASSEMBLY SUPERVISOR values obtained with different binder fixer's assay methods may not be used interchangeaby. ??The magnitude of the reported IgG levels cannot be be correlated to an endpoint titer. A positive result in the Quanta Lite PRODUCTION ASSEMBLY SUPERVISOR STELLA indicates the presence of antibodies reactive with the PRODUCTION ASSEMBLY SUPERVISOR/Sm complex but cannot distinguish between anti-Sm and anti-PRODUCTION ASSEMBLY SUPERVISOR activity. Blood VENOUS BLOOD / Unknown 06/26/2021 14:33 EDT 06/26/2021 21:01 EDT us Provider Outr Resulting Lab IMMUNOLOGY AND SEROL OGY ORDERABLES Final Result Performing Organization Address City/State/[facility] Co de Phone Number [facility] [address] [place] [address] * SM (MORAN) ANTIBODY (06/26/2021 14:33 EDT) SM (Moran) Antibody 1.6 <20.0 Units 06/28/2021 13:46 EDT [facility] Comment: ? Negative: <20.0 Units ? Weak Positive: 20.0 - 39.9 Units ? Moderate Positive: 40.0 - 80.0 Units ? Strong Positive: >80.0 Units Results were obtained with the [employer] QUANTA Lite Sm STELLA. ??Sm values obtained with different manufacturers' assay methods may not be used interchangeably. ??The magnitude of the reported IgG levels cannot be correlated to an endpoint titer. Blood VENOUS BLOOD / Unknown 06/26/2021 14:33 EDT 06/26/2021 21:01 EDT Provider Outr Resulting Lab IMMUNOLOGY AND SEROL OGY ORDERABLES Final Result Performing Organization Address [facility] de Phone Number [facility] [address] [place] [address] * SSB ANTIBODIES BY STELLA (06/26/2021 14:33 EDT) SSB Antibody 2.5 <20.0 Units 06/28/2021 13:44 EDT [facility] Comment: ? Negative: <20.0 Units ? Weak Positive: 20.0 - 39.9 Units ? Moderate Positive: 40.0 - 80.0 Units ? Strong Positive: >80.0 Units Results were obtained with the [employer] QUANTA Lite SS-B STELLA. ??SS-B values obtained with different manufacturers' assay methods may not be used interchangeably. ??The magnitude of the reported IgG levels cannot be correlated to an endpoint titer. Blood VENOUS BLOOD / Unknown 06/26/2021 14:33 EDT 06/26/2021 21:01 EDT Provider Outr Resulting Lab IMMUNOLOGY AND SEROL OGY ORDERABLES Final Result Performing Organization Address [facility] de Phone Number [facility] [address] [place] [address] * SSA ANTIBODIES BY STELLA (06/26/2021 14:33 EDT) SSA Antibody 1.2 <20.0 Units 06/28/2021 13:43 EDT [facility] Comment: ? Negative: <20.0 Units ? Weak Positive: 20.0 - 39.9 Units ? Moderate Positive: 40.0 - 80.0 Units ? Strong Positive: >80.0 Units Results were obtained with the [employer] QUANTA Lite SS-A STELLA. ??SS-A values obtained with different manufacturers' assay methods may not be used interchangeably. ??The magnitude of the reported IgG levels cannot be correlated to an endpoint titer. Blood VENOUS BLOOD / Unknown 06/26/2021 14:33 EDT 06/26/2021 21:01 EDT us Provider Outr Resulting Lab IMMUNOLOGY AND SEROL OGY ORDERABLES Final Result Performing Organization Address [facility] de Phone Number [facility] [address] [place] [address] * ANTI NUCLEAR AB (REBECA), IFA (06/26/2021 14:33 EDT) REBECA Interpretation Negative Negative 2020 13:49 EDT [facility] Comment:No titer performed, REBECA Screen is negative. Blood VENOUS BLOOD / Unknown 06/26/2021 14:33 EDT 06/26/2021 21:01 EDT Narrative [facility] - 06/27/2021 13:49 EDT Results were obtained with the INOVA NOVA Lite HEp-2 REBECA Kit by indirect immunofluorescence. us Provider Outr Resulting Lab IMMUNOLOGY AND SEROL OGY ORDERABLES Final Result Performing Organization Address [facility] de Phone Number [facility] [address] [place] [address] documented in this encounter Visit Diagnoses Not on filedocumented in this encounter Care Teams Research Soil Scientist Relationship Specialty Start Date End Date Dorita Zimmerman NP [address] [place] [address] PCP - General 12/25/20 Hillary Tobin MD [address] [place] [address] [address] [place] [address] Cardiovascular Disease 04/03/22 documented as of this encounter
--- OUTSIDE RECORDS SUMMARY | 2024-10-20 17:17 | XMS_ITS | Encounter Summary ---
Author Organization [facility] Address [address] [place] [address] Care Team Providers Care Hop Sorter Name Role Phone Gera Alvarenga MD Primary Care Provider U tere Reason for Visit * Reason Onset Date Comments Medications Refill 02/07/2020 Encounter Details Date Type Department Care Team (Late st Contact Info) Description 02/07/[address] [facility] [address] [place], [place] [phone] Augustina Morales, RN [address] [facility] [address] [place] [address] Medications Refill Social History Tobacco Use Types Packs/Day Years Used Date Smoking Tobacco: Never Assessed Comments Unknown Sex and Gender Information Value Date Recorded Sex Assigned at Not on file Legal Sex Female 18:23 EST Gender Identity Female 04/24/2020 16:01 EDT Sexual Orientation Not on file documented as of this encounter Miscellaneous Notes * Telephone Encounter - Augustina Morales RN - 02/07/2020 1515 EDT Unable to send Escript to pharmacy. Verbal order given to pharmacist at [facility] for Eliquis 5mg 1 tablet twice daily #90 with 1 RF. Also Diltiazem 360mg 1 capsule daily #90 with 1 RF. * Telephone Encounter - Augustina Morales RN - 02/07/2020 1326 EDT Patient called requesting a RF of her Diltiazem and Eliquis. documented in this encounter Plan of Treatment Upcoming Encounters Date Type Department Care Team (Late st Contact Info) Description 02/14/2025 14:30 EDT Office Visit [facility] Cardiology Clinic [address] [place] [address] Hillary Tobin MD 130 [facility] [address] [place] [phone] documented as of this encounter Visit Diagnoses Not on filedocumented in this encounter Care Teams Hop Sorter Relationship Specialty Start Date End Date Gera Alvarenga MD PCP - General 09/29/15 12/24/20 documented as of this encounter
--- OUTSIDE RECORDS SUMMARY | 2024-10-20 17:17 | XMS_ITS | Encounter Summary ---
Author Organization [facility] Address [address] [place] [address] Care Team Providers Care Audioprosthologist Name Role Phone Unavailable Primary Care Provider Unavailabl e Encounter Details Date Type Department Care Team (Late st Contact Info) Description 11/23/2007 Results Only [facility] [address] [place] [address] Sal Romano MD [address] [place] [address] Social History Tobacco Use Types Packs/Day Years [...] Info) Description 02/14/2025 14:30 EDT Office Visit [facility] Cardiology Clinic [address] [place], [place] [phone] Hillary Tobin MD 130 [facility] [place] [address] documented as of this encounter Procedures Procedure Name Priority Date/Time Associated Diagnosis Comments SURGICAL PATHOLOGY Routine 11/23/2007 0:00 EST documented in this encounter Results * SURGICAL PATHOLOGY (11/23/2007 0:00 EST) Pathology Report: SURGICAL PATHOLOGY REPORT Reports generated via electronic interface contain original data; however they are lacking the format of the original report. Caution should be taken when reading/interpreti ng unformatted reports. Name: ? KATINA BRUNO ? Accession #: ? [id number] ? : ? 1950 (Age: 57) ??F ? Collect Date: ? 11/23/2007 ? Location: ? [facility] ? Receive Date: ? 11/23/2007 ? Provider: SAL ROMANO MD Copy to: ARLETTE BURKS MD ? Final Pathologic Diagnosis: ? Esophagus, 35 cm, biopsy: 1. ?Squamous mucosa with mild chronic inflammation and reactive epithelial changes. ??See comment. 2. ? Squamocolumnar junctional mucosa with mild chronic inflammation. 3. ? No intestinal metaplasia identified. Comment: ? While non-specific, the findings would be compatible with reflux esophagitis in the appropriate clinical setting. ??(Dr. Cagle)/[facility] Document reviewed and electronically signed by: DARIEL CAGLE MD Report ??Date: 11/25/2007 10:47 By the signature above, the attending physician certifies that he/she has personally conducted a gross and/or microscopic examination of the described specimens and rendered or confirmed the above diagnosis. Specimen(s) Received: ? Bx esophagus 35 cm Clinical History: ? GERD Gross Description: ? Received in Hollande's fixative labelled Jerson and bx esophagus 35 cm are four pieces of tissue that range in measurement from 0.2 x 0.2 x 0.1 cm to 0.5 x 0.3 x 0.2 cm. ??The specimen is entirely submitted in one cassette. ??(Izaiah Gonzalez)/[facility] End of Report ANDREA POLLARD 11/23/2007 11/23/2007 15: 45 EST us Sal Romano MD PATHOLOGY ORDERABLES Final Result ANDREA POLLARD [address] [place] [address] documented in this encounter Visit Diagnoses Not on filedocumented in this encounter
--- OUTSIDE RECORDS SUMMARY | 2024-10-20 17:17 | XMS_ITS | Encounter Summary ---
Author Organization [facility] Address [address] [place] [address] Care Team Providers Care Technology Officer Name Role Phone Gera Alvarenga MD Primary Care Provider U bassemailable Reason for Visit * Reason Onset Date Comments Other 05/02/2020 Encounter Details Date Type Department Care Team (Late st Contact Info) Description 05/02/2020 Telephone [facility] Card[facility] Clinic [address] [place] [address] Jr Lopez MD [address] [phone] Other Social History Tobacco Use Types Packs/Day Years Used Date Smoking Tobacco: Former Cigarettes 3 20 0 11/24/1984 - 11/24/2004 Smokeless Tobacco: Never Alcohol Use Standard Drinks/Week Comments Not Currently 0 (1 standard drink = 0.6 oz pur e alcohol) Comments Unknown Sex and Gender Information Value Date Recorded Sex Assigned at Not on file Legal Sex Female 18:23 EST Gender Identity Female 04/24/2020 16:01 EDT Sexual Orientation Not on file documented as of this encounter Miscellaneous Notes * Telephone Encounter - Angus Andersen - 05/02/2020 1156 EDT NOTE FAXED * Telephone Encounter - Smiley Boswell - 05/02/2020 1132 EDT julio césar called and is looking for the most recent office note. Please fax to [phone]. Thank you documented in this encounter Plan of Treatment Upcoming Encounters Date Type Department Care Team (Late st Contact Info) Description 02/14/2025 14:30 EDT Office Visit [facility] Cardiology Clinic [address] [place] [address] Hillary Tobin MD [address] [place] [address] [place] [phone] documented as of this encounter Visit Diagnoses Not on filedocumented in this encounter Care Teams Technology Officer Relationship Specialty Start Date End Date Gera Alvarenga MD PCP - General 09/29/15 12/24/20 documented as of this encounter
--- OUTSIDE RECORDS SUMMARY | 2024-10-20 17:17 | XMS_ITS | Encounter Summary ---
Author Organization [facility] Address [address] [place] [address] Care Team Providers Care Emt I/85 Name Role Phone Gera Alvarenga MD Primary Care Provider U Dorita Farrell NP Primary Care Provider [phone] Hillary Tobin MD Unavailable [phone] Reason for Visit * Reason Comments Other Encounter Details Date Type Department Care Team (Late st Contact Info) Description 08/02/2020 Refill [facility] Cardiology Clinic [address] [place] [address] Jr Lopez MD [address] [place] [phone] Other Social History Tobacco Use Types [...] on file documented as of this encounter Ordered Prescriptions Prescription Sig Dispense Quantity Refills Last Filled Start Date End Date diltiazem (CARDIZEM CD) 360 mg ER capsule TAKE ONE CAPSULE BY MOUTH EVERY DAY 90 Cap 1 08/03/2020 0 documented in this encounter Plan of Treatment Upcoming Encounters Date Type Department Care Team (Late st Contact Info) Description 02/14/2025 14:30 EDT Office Visit [facility] Cardiology Clinic [address] [place] [address] Hillary Tobin MD [address] [place] [phone] documented as of this encounter Visit Diagnoses Not on filedocumented in this encounter Care Teams Emt I/85 Relationship Specialty Start Date End Date Gera Alvarenga MD PCP - General 09/29/15 12/24/20 Dorita Zimmerman NP [address] [place] [phone] PCP - General 12/25/20 Hillary Tobin MD [address] [place] [phone] Cardiovascular Disease 04/03/22 documented as of this encounter
--- OUTSIDE RECORDS SUMMARY | 2024-10-20 17:17 | XMS_ITS | Encounter Summary ---
Author Organization [facility] Address [address] [place] [address] Care Team Providers Care Senior Technical Recruiter Name Role Phone Dorita Zimmerman LOCAL COMBINATION TRUCK DRIVER Primary Care Provider [phone] Hillary Tobin MD Unavailable Reason for Visit * Reason Onset Date Comments Appointment Related 10/20/2023 Encounter Details Date Type Department Care Team (Late st Contact Info) Description 10/20/2023 Telephone [facility] [address] [place] [address] Hillary Tobin MD 130 [facility] [address] [phone] Appointment Related Social History Tobacco Use Types Packs/Day Years [...] or shopping? Answer Date of Assessment Author No 04/05/2022 10:08 EDT documented as of this encounter Mental Status * Because of a physical, mental, or emotional condition, does this person have serious difficulty concentrating, remembering, or making decisions? Answer Entry Date Author Yes 03/16/2021 8:47 EDT documented in this encounter Miscellaneous Notes * Telephone Encounter - Angus Andersen - 10/20/2023 1035 EST Appt cancelled. Will await pt call to reschedule. Recall placed also * Telephone Encounter - Allyssa Cadena - 10/20/2023 0823 EST PAS Message: Lucero called to cancel appointment with Hillary Tobin MD on 10/20/23 at 1115 due to weather. Patient would like a call back to reschedule? Yes, but she will call when she gets power back for her phone documented in this encounter Plan of Treatment Upcoming Encounters Date Type Department Care Team (Late st Contact Info) Description 02/14/2025 14:30 EDT Office Visit [facility] Cardiology Clinic [address] [place] [address] Hillary Tobin MD [address] [place] [phone] documented as of this encounter Visit Diagnoses Not on filedocumented in this encounter Care Teams Senior Technical Recruiter Relationship Specialty Start Date End Date Dorita Zimmerman NP [address] [place] [phone] PCP - General 12/25/20 Hillary Tobin MD [address] [phone] Cardiovascular Disease 04/03/22 documented as of this encounter
--- OUTSIDE RECORDS SUMMARY | 2024-10-20 17:17 | XMS_ITS | Encounter Summary ---
Author Organization [facility] Address [address] [place] [address] Care Team Providers Care Electric Well Logging Operator Name Role Phone Dorita Zimmerman 911 EMERGENCY DISPATCHER Primary Care Provider [phone] Hillary Tobin MD Unavailable [phone] Reason for Visit * Reason Comments Atrial Fibrillation Encounter Details Date Type Department Care Team (Latest Contact Info) Description 01/17/2023 11:15 EST Office Visit [facility] [address] [place] [address] Hillary Tobin MD [address] [facility] [place] [address] Paroxysmal atrial fibrillation (HCC-CMS) (Primary Dx); Mixed hyperlipidemia; Current use of adjunct faculty for medical terminology anticoagulation Social History Tobacco Use Types Packs/Day Years [...] Sign Reading Time Taken Comments Blood Pressure 124/68 01/17/2023 1056 EST Pulse 67 01/17/2023 1056 EST Temperature - - Respiratory Rate - - Oxygen Saturation 96% 01/17/2023 1056 EST Inhaled Oxygen Concentration - - Weight 83 kg (183 lb) 01/17/2023 1056 EST Height 149.9 cm (4' 11) 01/17/2023 1056 EST Body Mass Index 36.96 01/17/2023 1056 EST documented in this encounter Functional Status * [...] 03/16/2021 8:47 EDT documented in this encounter Progress Notes * Hillary Tobin MD - 01/17/2023 1115 EST [facility] Cardiology Clinic Visit Subjective: Chief Complaint(s): Atrial Fibrillation HPI: 72-year-old woman with a history of paroxysmal atrial fibrillation. Referred 2020 for EP evaluationregarding lightheaded spells and bradycardia findings on Holter EKG. ? She was symptomatic with palpitations with rapid heart rates during episodes of A. fib. ZIOpatch showed AF burden of 12%, a subsequent Holter was without AF but occasional bradycardia down to 45/min,without clear symptom correlation. 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 She had a COVID infection in September 2022 which caused significant hair loss. She also was foundto have a adrenal gland tumor that is under further investigation. Due to all this she reports not having been at the gym since September 2022. Her weight has been down to 175 pounds, now she is back at 185 pounds. ?? Today in the office, she reports more shortness of breath with exertion, attributed to deconditioning. No recent chest pain or palpitations. Some issues with increased depression, rare orthostatic lightheadedness, no syncope. Denies exertional chest pain, shortness of breath at rest, orthopnea, PND, fevers, chills, digestive troubles, bleeding issues. She had a GI bleeding issue in the past that resolved after polyp removal. Received both Covid vaccinations (Moderna). ?? Current Outpatient Medications Medication Sig Dispense Refill ??? apixaban (ELIQUIS) 5 mg tablet 1 tab(s) orally 2 times a day ??? calcium carbonate/vitamin D3 (CALCIUM 500 + D ORAL) Take by mouth daily. ??? cholecalciferol, Vitamin D3, 25 mcg (1,000 unit) tablet Take 1,000 Units by mouth daily. ??? dilTIAZem (CARDIZEM CD) 300 mg ER capsule Take 1 Cap by mouth daily. 90 Cap 3 ??? lovastatin (MEVACOR) 40 mg tablet Take 40 mg by mouth at bedtime. ??? meclizine (ANTIVERT) 25 mg tablet 3 times daily as needed. No current facility-administered medications for this visit. [...] otherwise negative. ROS Objective: Examination: Vitals: BP 124/68 (BP Cuff Location: Right arm, BP Patient Position: Sitting, BP Cuff Sizes: Adult, large) Pulse 67 Ht (!) 149.9 cm (59) Wt 83 kg (183 lb) SpO2 96% BMI 36.96 kg/m?? Body mass indexis 36.96 kg/m??. Physical Exam GENERAL APPEARANCE: no acute [...] oriented x3, nonfocal, normal speech, gait normal. Zio patch detail maker and fitter 02/2021: Baseline sinus rhythm, 45-130/min, average 76/min. Rare PAC, lessthan 1%, 31 atrial runs, consistent with EAT, fastest 5 beats at 179/min, longest 16 beats at 104/min, rare PVC, less than 1%, no VT. No significant pauses. 20 triggered events, all sinus rhythm, 5 of them with PACs. 14 symptom events with a combination of shortness of breath, pounding, lightheaded, dizzy, chest pain/pressure, skipped/irregular beats of with sinus rhythm, some of them with PAC. Assessment & Plan: 1. Paroxysmal atrial fibrillation (HCC-CMS) (HCC) 2. Mixed hyperlipidemia 3. Current use of usp anticoagulation 72-year-old woman with a history of paroxysmal atrial fibrillation. P/w recurrent episodes of lightheadedness and dyspnea on exertion. Already had an extensive cardiac work-up at [facility] with normal echo and stress test. A Holter EKG showed sinus rhythm, no recurrence of atrial fibrillation and no clear culprit arrhythmia. Subsequent Zio patch recording with symptomatic PACs and few brief ectopic atrial tachycardia spells. Currently feeling more deconditioned after Covid infection in 09/2022, but without recurrence of palpitation symptoms. No indication for antiarrhythmic therapy. ??Her CHADSVASC score is 3 for age, HTN and female gender, recommended to continue Eliquis 5 mg twice daily. Continue lovastatin therapy. PCP is monitoring lipids.??BP looks good. Encouraged her to rebuild her exercise program with spring. I spent a total of 30 minutes on the date of this encounter meeting with the patient and reviewing documentation/coordinating care as described in the above note. No procedures were performed at the time of the visit. Hillary Tobin MD documented in this encounter Plan of Treatment Upcoming Encounters Date Type Department Care Team (Late st Contact Info) Description 02/14/2025 14:30 EDT Office Visit [facility] [address] [place] [address] Hillary Tobin MD [address] [facility] [address] [place] [address] documented as of this encounter Visit Diagnoses Diagnosis Paroxysmal atrial fibrillation (HCC-CMS)- Primary Atrial fibrillation Mixed hyperlipidemia Current use of usp anticoagulation Long-term (current) use of anticoagulants documented in this encounter Discontinued Medications Medication Sig Discontinue Reason Start Date End Da te ATROVENT HFA 17 mcg/actuation inhaler Therapy completed 03/15/20 21 01/17/2023 documented as of this encounter Care Teams Electric Well Logging Operator Relationship Specialty Start Date End Date Dorita Zimmerman NP [address] [place] [address] PCP - General 12/25/20 Hillary Tobin MD [address] [place] [phone] Cardiovascular Disease 04/03/22 documented as of this encounter
--- OUTSIDE RECORDS SUMMARY | 2024-10-20 17:17 | XMS_ITS | Encounter Summary ---
Author Organization [facility] Address [address] [place] [address] Care Team Providers Care Automatic Cigar Wrapper Tender Name Role Phone Dorita Zimmerman OCCUPATIONAL MEDICINE SPECIALIST Primary Care Provider [phone] Hillary Tobin MD Unavailable [phone] Reason for Visit * Reason Comments Atrial Fibrillation Encounter Details Date Type Department Care Team (Latest Contact Info) Description 04/05/2022 10:30 EDT Office Visit [facility]iology Clinic [address] [place] [address] Hillary Tobin MD [address] [facility] [place] [address] Paroxysmal atrial fibrillation (HCC-CMS) (HCC) (Primary Dx); Atrial tachycardia (HCC-CMS) (HCC); Mixed hyperlipidemia; Current use of superintendent terminal anticoagulation Social History Tobacco Use Types Packs/Day [...] Sign Reading Time Taken Comments Blood Pressure 118/72 04/05/2022 1003 EDT Pulse 72 04/05/2022 1003 EDT Temperature - - Respiratory Rate - - Oxygen Saturation 97% 04/05/2022 1003 EDT Inhaled Oxygen Concentration - - Weight 81.6 kg (180 lb) 04/05/2022 1003 EDT Height 149.9 cm (4' 11) 04/05/2022 1003 EDT Body Mass Index 36.36 04/05/2022 1003 EDT documented in this encounter Functional Status [...] Progress Notes * Hillary Tobin MD - 04/05/2022 1030 EDT [facility] Visit Subjective: Chief [...] bradycardia down to 45/min,without clear symptom correlation. ?? Today in the office, she reports doing very well. She has joined a gym and works out 4 times a weekfor around 2 hours with the help of a first aid trainer. Palpitations have not bothered her at all since starting her exercise program and she finds it easier to lose weight with added exercise. She recently had brief episodes of hematuria when she passed 2 kidney stones. She had gained a significant amount of weight during the pandemic, now actively working on weight loss, 8 lbs down since August 2021. Tries to walk 2 miles a day. Denies exertional chest pain, shortness of breath [...] day ??? ATROVENT HFA 17 mcg/actuation inhaler (Patient not taking: Reported on 09/18/2021) ??? calcium carbonate/vitamin D3 (CALCIUM 500 + [...] otherwise negative. ROS Objective: Examination: Vitals: BP 118/72 (BP Cuff Location: Right arm, BP Patient Position: Sitting, BP Cuff Sizes: Adult, large) Pulse 72 Ht (!) 149.9 cm (59) Wt 81.6 kg (180 lb) SpO2 97% BMI 36.36 kg/m?? Body mass index is 36.36 kg/m??. Physical Exam GENERAL APPEARANCE: no acute [...] nonfocal, normal speech, gait normal. 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 [...] 1. Paroxysmal atrial fibrillation (HCC-CMS) (HCC) 2. Atrial tachycardia (HCC-CMS) (HCC) 3. Mixed hyperlipidemia 4. Current use of correction anticoagulation 72-year-old woman with a history of paroxysmal atrial fibrillation. P/w recurrent episodes of lightheadedness and dyspnea on exertion. Already had an extensive cardiac work-up at [facility] with normal echo and stress test. A Holter EKG showed sinus rhythm, no recurrence of atrial fibrillation and no clear culprit arrhythmia. Subsequent Zio patch recording with symptomatic PACs and few brief ectopic atrial tachycardia spells. Currently without recurrence of palpitation symptoms in the context of a much increased exercise program with the help of regular gym visits and a first aid trainer. No indication for antiarrhythmic therapy. ??Her CHADSVASC score is 3 for age, HTN and female gender, recommended to continue Eliquis 5mg twice daily. Continue lovastatin therapy. PCP is monitoring lipids.? Detailed discussion of her exercise routine with questions about recommended and maximal heart rates. Based on her age, 100% threshold for exercise heart rate would be 150/min, 85% of that for sustained exercise around 125/min. I spent a total of 30 minutes [...] Info) Description 02/14/2025 14:30 EDT Office Visit [facility] [address] [place] [address] Hillary Tobin MD [address] [place] [address] [place] [address] documented as of this encounter Visit Diagnoses Diagnosis Paroxysmal atrial fibrillation (HCC-CMS)- Primary Atrial fibrillation Atrial tachycardia (HCC-CMS) Other specified cardiac dysrhythmias Mixed hyperlipidemia Current use of correction anticoagulation Long-term (current) use of anticoagulants documented in this encounter Discontinued Medications Medication Sig Discontinue Reason Start Date End Da te [facility] Therapy completed 03/15/20212021 meclizine (ANTIVERT) 25 mg tablet every 6 hours. Order modification 04/05/2022 documented as of this encounter Historical Medications * This list may reflect changes made after this encounter. meclizine (ANTIVERT) 25 mg tablet 3 times daily as needed. 04/05/2022 added in this encounter Care Teams Automatic Cigar Wrapper Tender Relationship Specialty Start Date End Date Dorita Zimmerman NP [address] [place] [phone] PCP - General 12/25/20 Hillary Tobin MD [address] [place] [address] [address] [place] [phone] Cardiovascular Disease 04/03/22 documented as of this encounter
--- OUTSIDE RECORDS SUMMARY | 2024-10-20 17:17 | XMS_ITS | Encounter Summary ---
Author Organization [facility] Address [address] [place] [address] Care Team Providers Care Cube Cutter Name Role Phone Dorita Zimmerman CAREER RESOURCE SPECIALIST Primary Care Provider [phone] Hillary Tobin MD Unavailable [phone] Encounter Details Date Type Department Care Team (Late st Contact Info) Description 01/05/2021 Lab Requisition [facility] Pathology & Laboratory Medicine - [facility] [address] [place] [address] Outr Resulting Lab, Provider Social History Tobacco [...] Info) Description 02/14/2025 14:30 EDT Office Visit [facility] [address] [place] [address] Hillary Tobin MD [address] [place] [address] [address] [place] [address] documented as of this encounter Procedures Procedure Name Priority Date/Time Associated Diagnosis Comments ZZCOVID-19 TEST [facility] PCR Today 01/05/2021 9:07 EST COVID-19 TESTING Routine 01/05/2021 9:07 EST documented in this encounter Results * COVID-19 TEST [facility] PCR (01/05/2021 9:07 EST) Swab ENTIRE NASOPHARYNX / Unknown 01/05/2021 9:07 EST 01/05/2021 16:25 EST us Provider Outr Resulting Lab MICROBIOLOGY - GENER AL ORDERABLES Final Result [facility] [address] [place] [address] * COVID-19 TESTING (01/05/2021 9:07 EST) COVID-19 rt-PCR Result Negative Negative 01/06/2021 11:41 EST [facility] Comment: This test has not been FDA cleared or approved. This test has been authorized by FDA under an EUA for use by authorized laboratories. This test has been authorized only for detection of nucleic acid from 2019-nCoV, not for any other viruses or pathogens. This test is only authorized for the duration of the declaration that circumstances exist justifying the authorization of emergency use of in vitro diagnostic tests for detection and/or diagnosis of 2019-nCoV under section 564(b)(1) of Act, 21 U.S.C ?? 360bbb-3(b) (1), unless the authorization is terminated or revoked sooner. Negative results do not preclude 2019-nCoV infection and should not be used as the sole basis for treatment or other patient management decisions. Negative results must be combined with clinical observations, patient history, and epidemiological information. Testing was performed using the marc SARS-CoV-2 assay ([employer] on the Marc [employer] System Performing Lab Marc [address] [facility] 01/06/2021 11:41 EST [facility] Swab 01/05/2021 9:07 EST 01/05/2021 16:25 EST us Provider Outr Resulting Lab MICROBIOLOGY - GENER AL ORDERABLES Final Result [facility] [address] [place] [address] documented in this encounter Visit Diagnoses Not on filedocumented in this encounter Care Teams Cube Cutter Relationship Specialty Start Date End Date Dorita Zimmerman CAREER RESOURCE SPECIALIST [address] [place] [address] PCP - General 12/25/20 Hillary Tobin MD [address] [place] [address] [address] [place] [phone] Cardiovascular Disease 04/03/22 documented as of this encounter
--- OUTSIDE RECORDS SUMMARY | 2024-10-20 17:17 | XMS_ITS | Encounter Summary ---
Author Organization [facility] Address [address] [place] [address] Care Team Providers Care Glass Selector Name Role Phone Dorita Zimmerman DIRECTOR TELECOMMUNICATIONS Primary Care Provider [phone] Hillary Tobin MD Unavailable Reason for Visit * Reason Comments Medications Refill Encounter Details Date Type Department Care Team (Late st Contact Info) Description 03/03/2023 Refill [facility] [address] [place] [address] Hillary Tobin MD [address] [facility] [address] [place] [address] Medications Refill Social History Tobacco Use Types [...] BY MOUTH EVERY DAY 90 Capsule 3 03/03/2023 4 documented in this encounter Plan of Treatment Upcoming Encounters Date Type Department Care Team (Late st Contact Info) Description 02/14/2025 14:30 EDT Office Visit [facility] [address] [place] [address] Hillary Tobin MD [address] [place] [phone] documented as of this encounter Visit Diagnoses Not on filedocumented in this encounter Discontinued Medications Medication Sig Discontinue Reason Start Date End Da te dilTIAZem (CARDIZEM CD) 300 mg ER capsule Take 1 Cap by mouth daily. 03/16/2021 03/03/2023 documented as of this encounter Care Teams Glass Selector Relationship Specialty Start Date End Date Dorita Zimmerman NP [address] [place] [phone] PCP - General 12/25/20 Hillary Tobin MD [address] [place] [phone] Cardiovascular Disease 04/03/22 documented as of this encounter
--- OUTSIDE RECORDS SUMMARY | 2024-10-20 17:17 | XMS_ITS | Encounter Summary ---
Author Organization [facility] Address [address] [place] [address] Care Team Providers Care Tile Machine Operator Name Role Phone SohailDorita mccurdy Yajaira SOLORZANO Primary Care Provider [phone] Hillary Tobin MD Unavailable [phone] Encounter Details Date Type Department Care Team (Late st Contact Info) Description 12/30/2023 Lab Requisition [facility] Pathology & Laboratory Medicine - [facility] [address] [place] [address] Outr Resulting Lab, Provider Social History Tobacco [...] Info) Description 02/14/2025 14:30 EDT Office Visit [facility] [address] [place], [place] [address] Hillary Tobin MD [address] [facility] [address] [place] [address] documented as of this encounter Procedures Procedure Name Priority Date/Time Associated Diagnosis Comments CALCIUM, URINE 24HR Routine 12/30/2023 8:30 EST documented in this encounter Results * CALCIUM, URINE 24HR (12/30/2023 8:30 EST) Calcium, Urine 10.4 See Note mg/dL 12/31/2023 9:26 EST [facility] Comment: NOTE: Reference range not established Calcium, Urine 24 hr 146 100 - 300 mg/24hr 12/31/2023 9:26 EST [facility] Comment:Reference range assu mes a normal daily intake of calcium between 600 - 800 mg/day. Urine Volume 1,400 mL 12/31/2023 9:26 EST [facility] Urine Collection Period 24.0 Hours 12/31/2023 9:26 EST [facility] Urine 24 HOUR URINE SPECIMEN / Unknown 12/30/2023 8:30 EST 12/30/2023 17:58 EST us Provider Outr Resulting Lab URINALYSIS ORDERABLE S Final Result [facility] [address] [place] [address] documented in this encounter Visit Diagnoses Not on filedocumented in this encounter Care Teams Tile Machine Operator Relationship Specialty Start Date End Date Dorita Zimmerman NP [address] [place] [phone] PCP - General 12/25/20 Hillary Tobin MD [address] [place] [phone] Cardiovascular Disease 04/03/22 documented as of this encounter
--- OUTSIDE RECORDS SUMMARY | 2024-10-20 17:17 | XMS_ITS | Encounter Summary ---
Author Organization [facility] Address [address] [place] [address] Care Team Providers Care [employer] Skills Name Role Phone Dorita Zimmerman JEANINE Primary Care Provider [phone] Hillary Tobin MD Unavailable [phone] Reason for Visit * Reason Onset Date Comments Results 12/15/2023 Encounter Details Date Type Department Care Team (Late st Contact Info) Description 12/15/2023 Telephone [facility]iology Clinic [address] [place] [address] Hillary Tobin MD [address] [facility] [place] [phone] Results Social History Tobacco Use Types Packs/Day Years [...] encounter Miscellaneous Notes * Telephone Encounter - Krystal Major RN - 12/29/20[address] Tobin for results * Telephone Encounter - Evans Ruffin LPN - 12/29/2023 0901 EST Pt called in to the office inquiring about the results from her E patch. Pt states that she, has had a decrease in symptoms she thinks. She would like to know next steps if any. Pt of . Please use [phone]. Thank you. * Telephone Encounter - Krystal Major RN - 12/17/2023 0946 EST Patient calling for results of epatch. She states she continues to have episodes of her heart pounding with SOB and feels dizzy. She had these episodes while wearing the e patch and noted them in thediary/journal. She reports the episodes are continuing and increasing in frequency, approximately 5 times weekly. She stopped her Propanolol in the beginning on November and she has noted an increase in her blood pressure. These values are taken at [facility] pharmacy : 187 /97 on 12/13 190/99 on 12/02 She has no ability to monitor at home or obtain a blood pressure cuff. To Dr. Tobin for information and results of epatch * Telephone Encounter - Angus Andersen - 12/15/2023 1526 EST Pt calling for results of ePatch placed 11/11/23. documented in this encounter Plan of Treatment Upcoming Encounters Date Type Department Care Team (Late st Contact Info) Description 02/14/2025 14:30 EDT Office Visit [facility] Cardiology Clinic [address] [place] [phone] Hillary Tobin MD [address] [place] [phone] documented as of this encounter Visit Diagnoses Not on filedocumented in this encounter Care Teams [employer] Combat Skills Relationship Specialty Start Date End Date Dorita Zimmerman NP [address] [place] [phone] PCP - General 12/25/20 Hillary Tobin MD [address] [place] [phone] Cardiovascular Disease 04/03/22 documented as of this encounter
--- OUTSIDE RECORDS SUMMARY | 2024-10-20 17:17 | XMS_ITS | Encounter Summary ---
Author Organization [facility] Address [address] [place] [address] Care Team Providers Care Lead Pharmacy Technician Name Role Phone Gera Alvarenga MD Primary Care Provider U Dorita Farrell NP Primary Care Provider [phone] Hillary Tobin MD Unavailable Encounter Details Date Type Department Care Team (Late st Contact Info) Description 08/21/2020 Lab Requisition [facility] Pathology & Laboratory Medicine - Main [place] [address], [place] [id number] Outr Resulting Lab, Provider Social History Tobacco [...] Info) Description 02/14/2025 14:30 EDT Office Visit [facility] Cardiology Clinic [address] [place] [address] [phone] Hillary Tobin MD [address] [place] [address] [address] [place] [address] documented as of this encounter Procedures Procedure Name Priority Date/Time Associated Diagnosis Comments PTH INTACT Routine 08/21/2020 10:08 EDT CORTISOL Routine 08/21/2020 10:08 EDT documented in this encounter Results * PTH INTACT (08/21/2020 10:08 EDT) Intact PTH 45 19 - 88 pg/mL 08/22/2020 9:34 EDT [facility] Blood VENOUS BLOOD / Unknown 08/21/2020 10:08 EDT 08/21/2020 15:58 EDT us Provider Outr Resulting Lab CHEMISTRY & BLOOD GA S ORDERABLES Final Result Performing Organization Address [facility] Co de Phone Number [facility] [address] [place] [address] * CORTISOL (08/21/2020 10:08 EDT) Cortisol 9 See Note ug/dL 08/21/2020 16:48 EDT [facility] Comment: NOTE: Reference Ranges (from OCD IFU): Collected Before 10:00 AM: ??4 - 23 ug/dL Collected After 5:00 PM: ?2 - 14 ug/dL The results of this assay can be falsely elevated due to the consumption of Biotin. Blood VENOUS BLOOD / Unknown 08/21/2020 10:08 EDT 08/21/2020 15:58 EDT us Provider Outr Resulting Lab CHEMISTRY & BLOOD GA S ORDERABLES Final Result Performing Organization Address [facility] Co de Phone Number [facility] [address] [place] [address] documented in this encounter Visit Diagnoses Not on filedocumented in this encounter Care Teams Lead Pharmacy Technician Relationship Specialty Start Date End Date Gera Alvarenga MD PCP - General 11/6/15 1/31/21 Dorita Zimmerman NP [address] [place] [phone] PCP - General 12/25/20 Hillary Tobin MD [address] [place] [address] [phone] Cardiovascular Disease 04/03/22 documented as of this encounter
--- OUTSIDE RECORDS SUMMARY | 2024-10-20 17:17 | XMS_ITS | Encounter Summary ---
Author Organization [facility] Address [address] [place] [address] Care Team Providers Care Material Mixer Name Role Phone Unavailable Primary Care Provider Unavailabl e Encounter Details Date Type Department Care Team (Late st Contact Info) Description 05/04/2012 Results Only [facility] Laboratory Services - [facility] ([facility]) [address] [place], [place] [id number] Mary Wilder, JEANINE [facility] [address] [place], [place] [address] Social History Tobacco Use Types Packs/Day Years [...] Info) Description 02/14/2025 14:30 EDT Office Visit [facility] [address] [place] [address] Hillary Tobin MD [address] [facility] [address] [place] [address] documented as of this encounter Procedures Procedure Name Priority Date/Time Associated Diagnosis Comments PAP TEST- RESULT ONLY Routine 05/04/2012 0:00 EDT documented in this encounter Results * PAP TEST- RESULT ONLY (05/04/2012 0:00 EDT) Pathology Report: CYTOPATHOLOGY REPORT Reports generated via electronic interface contain original data; however they are lacking the format of the original report. Caution should be taken when reading/interpreti ng unformatted reports. Name: ? KATINA BRUNO ? Accession #: ? [id number] : ? 1950 (Age: 62) ??F ?Collect Date: ? 05/04/2012 Location: ? [facility] ? Receive Date: ? 05/06/2012 Provider: ?MARY WILDER AUTOMATION TEST DEVELOPER Copy to: ? Specimen/Source: ?Pap Test, Cervix/Endocervix, ThinPrep Imaging System with manual evaluation Last Menstrual Period: ? 2002 ? SPECIMEN ADEQUACY ? Satisfactory for Evaluation - transformation zone component present GENERAL CATEGORIZATION ? Negative for Intraepithelial Lesion or Malignancy ? Document reviewed and electronically signed by: ? NICK Marcelino(ASCP) ? Report Date: ??05/07/2012 10:48 End of Report ANDREA POLLARD 05/04/2012 05/06/2012 Mary Wilder NP PATHOLOGY ORDERABLES Final Resu lt ANDREA POLLARD [address] [place] [address] documented in this encounter Visit Diagnoses Not on filedocumented in this encounter
--- OUTSIDE RECORDS SUMMARY | 2024-10-20 17:17 | XMS_ITS | Encounter Summary ---
Author Organization [facility] Address [address] [place] [address] Care Team Providers Care City Detective Name Role Phone SohailDorita mccurdy Yajaira SOLORZANO Primary Care Provider [phone] Hillary Tobin MD Unavailable [phone] Encounter Details Date Type Department Care Team (Late st Contact Info) Description 11/11/2022 Lab Requisition [facility] Pathology & Laboratory Medicine - [facility] [address] [place] [address] Outr Resulting Lab, Provider Social History Tobacco [...] Info) Description 02/14/2025 14:30 EDT Office Visit [facility] Cardiology Clinic [address] [place] [address] [phone] Hillary Tobin MD [address] [phone] documented as of this encounter Procedures Procedure Name Priority Date/Time Associated Diagnosis Comments ZZHN INFLUENZA A AND B, RSV PCR Routine 11/11/2022 9:10 EST documented in this encounter Results * INFLUENZA A AND B,RSV PCR (11/11/2022 9:10 EST) FLU A RNA Result (FLARES) Negative Negative 11/13/2022 2:03 EST [facility] FLU B RNA Result (FLBRES) Negative Negative 11/13/2022 2:03 EST [facility] RSV RNA Result (RSVRES) Negative Negative 11/13/2022 2:03 EST [facility] Swab ENTIRE NASOPHARYNX / Unknown 11/11/2022 9:10 EST 11/12/2022 19:59 EST us Provider Outr Resulting Lab MICROBIOLOGY - GENER AL ORDERABLES Final Result Performing Organization Address City/State/[facility] Co de Phone Number [facility] [address] [place] [address] documented in this encounter Visit Diagnoses Not on filedocumented in this encounter Care Teams City Detective Relationship Specialty Start Date End Date Dorita Zimmerman, JEANINE [address] [place] [address] PCP - General 12/25/20 Hillary Tobin MD [address] [place] [phone] Cardiovascular Disease 04/03/22 documented as of this encounter
--- OUTSIDE RECORDS SUMMARY | 2024-10-20 17:17 | XMS_ITS | Referral Summary ---
Author Organization [facility] Address [address] [place] [address] Care Team Providers Care Registered Pharmacy Technician Name Role Phone Dorita Zimmerman Yajaira SOLORZANO Primary Care Provider [phone] Hillary Tobin MD Unavailable [phone] Encounters Date Type Department Care Team Description 08/09/2024 11:15 EDT Office Visit [facility] Cardiology Clinic [address] [place] [address] Hillary Tobin MD Paroxysmal atrial fibrillation (HCC-CMS) (Primary Dx); PAC (premature atrial contraction); Mixed hyperlipidemia; Atrial tachycardia (HCC-CMS); History of intracranial hemorrhage; Cerebral amyloid angiopathy (CODE) from Last 3 Months Allergies Active Allergy Reactions Criticality Noted Date [...] 03/16/2021 Mixed hyperlipidemia 03/16/2021 Current use of care home anticoagulation 020 Dyslipidemia 02/03/2020 Paroxysmal atrial fibrillation (HCC-CMS) 020 Social History Tobacco Use Types Packs/Day Years [...] 16:01 EDT Sexual Orientation Not on file Last Filed Vital Signs Vital Sign Reading [...] Body Mass Index 37.95 08/09/2024 1103 EDT Functional Status * Because of a physical, mental, or emotional condition, does this person have difficulty doing errands alone such as visiting a doctor's office or shopping? Answer Date of Assessment Author No 04/05/2022 10:08 EDT Mental Status * Because of a physical, mental, or emotional condition, does this person have serious difficulty concentrating, remembering, or making decisions? Answer Entry Date Author Yes 03/16/2021 8:47 EDT Plan of Treatment Upcoming Encounters Date Type Department Care Team (Late st Contact Info) Description 02/14/2025 14:30 EDT Office Visit [facility] [address] [place], [place] [phone] Hillary Tobin MD 130 [facility] [address] [place] [address] [place] Care Teams Registered Pharmacy Technician Relationship Specialty Start Date End Date Dorita Zimmerman NP [address] [place] [phone] PCP - General 12/25/20 Hillary Tobin MD [address] [place] [phone] Cardiovascular Disease 04/03/22
--- OUTSIDE RECORDS SUMMARY | 2024-10-20 17:17 | XMS_ITS | Encounter Summary ---
Author Organization [facility] Address [address] [place] [address] Care Team Providers Care Turbine Room Attendant Name Role Phone Dorita Zimmerman JEANINE Primary Care Provider [phone] Hillary Tobin MD Unavailable [phone] Reason for Visit * Reason Onset Date Comments Results 02/10/2024 Encounter Details Date Type Department Care Team (Late st Contact Info) Description 02/10/2024 Telephone [facility] Cardiology Clinic [address] [place] [address] Hillary Tobin MD 130 [facility] [place] [phone] Results Social History Tobacco Use Types [...] encounter Miscellaneous Notes * Telephone Encounter - Marvin Goodwin RN - 02/11/2024 0859 EDT Spoke with who will advise or contact patient. * Telephone Encounter - Marvin Goodwin RN - 02/10/2024 1004 EDT Will check with today when he is done with procedures. * Telephone Encounter - Lotus Franz - 02/10/2024 0930 EDT Pt called requesting her epatch results from 11/11/2023. Pt has called multiple times requesting results (See TE from 12/15/2023). documented in this encounter Plan of Treatment Upcoming Encounters Date Type Department Care Team (Late st Contact Info) Description 02/14/2025 14:30 EDT Office Visit [facility] Cardiology Clinic [address] [place] [address] Hillary Tobin MD 130 [facility] [address] [place] [phone] documented as of this encounter Visit Diagnoses Not on filedocumented in this encounter Care Teams Turbine Room Attendant Relationship Specialty Start Date End Date Dorita Zimmerman NP [address] [place] [address] PCP - General 12/25/20 Hillary Tobin MD [address] [place] [address] [address] [place] [address] Cardiovascular Disease 04/03/22 documented as of this encounter
--- OUTSIDE RECORDS SUMMARY | 2024-10-20 17:17 | XMS_ITS | Encounter Summary ---
Author Organization [facility] Address [address] [place] [address] Care Team Providers Care Machine Plaster Mixer Name Role Phone Gera Alvarenga MD Primary Care Provider U navailable Reason for Visit * Reason Onset Date Comments Medications Refill 02/07/2020 PT IS OUT OF THE MEDICATION Encounter Details Date Type Department Care Team (Late st Contact Info) Description 02/07/[address] [facility] Cardiology Clinic [address] [place] [address] Jr Lopez MD [address] [place] [phone] Medications Refill (PT IS OUT OF THE MEDICATION ) Social History Tobacco Use Types Packs/Day Years Used Date Smoking Tobacco: Never Assessed Comments Unknown Sex and Gender Information Value Date Recorded Sex Assigned at Not on file Legal Sex Female 18:23 EST Gender Identity Female 04/24/2020 16:01 EDT Sexual Orientation Not on file documented as of this encounter Miscellaneous Notes * Telephone Encounter - Augustnia Morales RN - 02/07/2020 1134 EDT Unable to fill med through TE. Will close as erroneous encounter * Telephone Encounter - Erica Rizvi - 02/07/2020 1116 EDT [facility] [place] documented in this encounter Plan of Treatment Upcoming Encounters Date Type Department Care Team (Late st Contact Info) Description 02/14/2025 14:30 EDT Office Visit [facility] Cardiology Clinic [address] [place] [address] Hillary Tobin MD 130 [facility] [address] [place] [address] documented as of this encounter Visit Diagnoses Not on filedocumented in this encounter Care Teams Machine Plaster Mixer Relationship Specialty Start Date End Date Gera Alvarenga MD PCP - General 09/29/15 12/24/20 documented as of this encounter
--- OUTSIDE RECORDS SUMMARY | 2024-10-20 17:17 | XMS_ITS | Encounter Summary ---
Author Organization [facility] Address [address] [place] [address] Care Team Providers Care Forcer Maker Name Role Phone Dorita Zimmerman COST CONTROL SPECIALIST Primary Care Provider [phone] Hillary Tobin MD Unavailable [phone] Reason for Visit * Reason Comments Medications Refill Encounter Details Date Type Department Care Team (Late st Contact Info) Description 02/29/[address] [facility] Cardiology Clinic [address] [place] [address] Hillary Tobin MD 130 [facility] [address] [place] [address] Medications Refill Social History Tobacco [...] MOUTH EVERY DAY 90 Capsule 3 03/01/2024 documented in this encounter Plan of Treatment Upcoming Encounters Date Type Department Care Team (Late st Contact Info) Description 02/14/2025 14:[address] [facility] Cardiology Clinic [address] [place] [address] Hillary Tobin MD [address] [place] [phone] documented as of this encounter Visit Diagnoses Not on filedocumented in this encounter Discontinued Medications Medication Sig Discontinue Reason Start Date End Da te dilTIAZem (CARDIZEM CD) 300 mg ER capsule TAKE ONE CAPSULE BY MOUTH EVERY DAY 03/03/2023 03/01/2024 documented as of this encounter Care Teams Forcer Maker Relationship Specialty Start Date End Date Dorita Zimmerman NP [address] [place] [phone] PCP - General 12/25/20 Hillary Tobin MD [address] [place] [phone] Cardiovascular Disease 04/03/22 documented as of this encounter
--- OUTSIDE RECORDS SUMMARY | 2024-10-20 17:17 | XMS_ITS | Encounter Summary ---
Author Organization [facility] Address [address] [place] [address] Care Team Providers Care Histopath Tech Name Role Phone Dorita Zimmerman Yajaira SOLORZANO Primary Care Provider Hillary Tobin MD Unavailable [phone] Encounter Details Date Type Department Care Team (Late st Contact Info) Description 12/27/2022 Lab Requisition [facility] Pathology & Laboratory Medicine - [facility] [address] [place] [address] Susan Rosario [address] [place] [address] [place] [address] Encounter for other general examination Social History Tobacco Use Types Packs/Day Years [...] Info) Description 02/14/2025 14:30 EDT Office Visit [facility] Card[facility] [address] [place] [address] Hillray Tobin MD 130 [facility] [address] [place] [address] documented as of this encounter Procedures Procedure Name Priority Date/Time Associated Diagnosis Comments SURGICAL PATHOLOGY Today 12/26/2022 15 :00 EST Encounter for other general examination documented in this encounter Results * SURGICAL PATHOLOGY (12/26/2022 15:00 EST) Note to Patient The following pathology results have been interpreted by your pathologist and may be available to you before your health provider has had the opportunity to review them. Please allow time for your provider to receive these results and explore management options, if applicable. 12/30/2022 11:56 [facility] Final Diagnosis A. ENDOMETRIUM, BIOPSY: - Scant atrophic endometrium. 12/30/2022 11:56 [facility] Attestation By the signature below, the attending physician certifies that they have 1) personally conducted a gross and/or microscopic examination of the described specimen(s), and/or personally interpreted the results of laboratory testing of the described specimen(s), and 2) personally rendered or confirmed the above diagnosis. 12/30/2022 11:56 [facility] at 1156 Clinical History Postmenopausal bleeding 12/30/2022 11:56 [facility] Gross Description A. Received in formalin labelled with proper patient identification (initials W, R) and endometrial bx is an aggregate of pale white-zapata viscous material that measures 0.1 x 0.1 x less than 0.1 cm. The specimen submitted entirely in A1. Please note that specimen may not survive processing. Martha Thompsonbecca 12/27/2022 9:18 12/30/2022 11:56 EST [facility] Performing Lab [facility] 12/30/2022 11:56 EST [facility] Scanned Images 12/30/2022 11:56 EST [facility] Tissue ENTIRE ENDOMETRIUM / Unknown 12/26/2022 15:00 EST 12/27/2022 8:03 EST [facility] PATHOLOGY ORDERABLES Final Resul t Performing Organization Address City/State/[facility] Co de Phone Number [facility] [address] [place] [address] documented in this encounter Visit Diagnoses Diagnosis Encounter for other general examination documented in this encounter Care Teams Histopath Tech Relationship Specialty Start Date End Date Dorita Zimmeramn NP [address] [place] [phone] PCP - General 12/25/20 Hillary Tobin MD [address] [place] [address] [address] [place] [phone] Cardiovascular Disease 04/03/22 documented as of this encounter
--- OUTSIDE RECORDS SUMMARY | 2024-10-20 17:17 | XMS_ITS | Encounter Summary ---
Author Organization [facility] Address [address] [place] [address] Care Team Providers Care Frozen Food Department Manager Name Role Phone SohailDorita mccurdy Yajaira SOLORZANO Primary Care Provider [phone] Hillary Tobin MD Unavailable [phone] Encounter Details Date Type Department Care Team (Late st Contact Info) Description 05/13/2022 Lab Requisition [facility] Pathology & Laboratory Medicine - [facility] [address] [place] [address] Outr Resulting Lab, Provider Social History Tobacco [...] Info) Description 02/14/2025 14:30 EDT Office Visit [facility] Cardiology Clinic [address] [place], [place] [phone] Hillary Tobin MD 130 [facility] [address] [address] [place] [address] documented as of this encounter Procedures Procedure Name Priority Date/Time Associated Diagnosis Comments DEXAMETHASONE SUPPRESSION TEST Routine 05/13/2022 8:20 EDT documented in this encounter Results * (ABNORMAL) DEXAMETHASONE SUPPRESSION TEST (05/13/2022 8:20 EDT) Dexamethasone Supp 2.0(H) See Note ug/dL 05/13/2022 17:[address] [facility] Comment: Reference Range: >= 1.8 ug/dL = non-suppression < 1.8 ug/dL = suppression (normal) Blood VENOUS BLOOD / Unknown 05/13/2022 8:20 EDT 05/13/2022 16:[address] [facility] - 05/13/2022 17:52 EDT The results of this assay can be falsely elevated due to the consumption of Biotin. us Provider Outr Resulting Lab CHEMISTRY & BLOOD GA S ORDERABLES Final Result [facility] [address] [place] [address] documented in this encounter Visit Diagnoses Not on filedocumented in this encounter Care Teams Frozen Food Department Manager Relationship Specialty Start Date End Date Dorita Zimmerman NP [address] [place] [address] PCP - General 12/25/20 Hillary Tobin MD [address] [place] [address] [address] [place] [phone] Cardiovascular Disease 04/03/22 documented as of this encounter
--- OUTSIDE RECORDS SUMMARY | 2024-10-20 17:17 | XMS_ITS | Encounter Summary ---
Author Organization [facility] Address [address] [place] [address] Care Team Providers Care Accounting Administrative Assistant Name Role Phone Gera Alvarenga MD Primary Care Provider U bassemailable Reason for Visit * Reason Comments Follow-up Atrial Fibrillation PAF Encounter Details Date Type Department Care Team (Late st Contact Info) Description 04/28/2020 13:30 EDT Office Visit [facility] Cardiology Clinic [address] [place] [address] Jr Lopez MD [address] [place] [phone] Paroxysmal atrial fibrillation (HCC-CMS) (Primary Dx); 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; Dyslipidemia Social History Tobacco Use Types Packs/Day Years Used Date Smoking Tobacco: Former Cigarettes 3 20 0 11/24/1984 - 11/24/2004 Smokeless Tobacco: Never Tobacco Cessation:Counseling Given: No Alcohol Use Standard Drinks/Week Comments Not Currently [...] Sign Reading Time Taken Comments Blood Pressure 122/72 04/28/2020 1334 EDT Pulse 81 04/28/2020 1334 EDT Temperature - - Respiratory Rate 18 04/28/2020 1334 EDT Oxygen Saturation 97% 04/28/2020 1334 EDT Inhaled Oxygen Concentration - - Weight 92.5 kg (204 lb) 04/28/2020 1334 EDT Height 149.9 cm (4' 11) 04/28/2020 1334 EDT Body Mass Index 41.2 04/28/2020 1334 EDT documented in this encounter Progress Notes * Jr Lopez MD - 04/28/2020 1330 EDT Cardiology Clinic Note 04/28/20 13:48 Presenting complaint: Follow-up and Atrial Fibrillation (PAF) HPI 70-year-old female with a history of paroxysmal atrial fibrillation. ? Symptomatic during episodes of A. fib. ZIOpatch done previously revealed A. fib burden of 12%. Lastecho in 2012 was normal. Continues to do reasonably well from a cardiac perspective. She denies any significant palpitations. Does notice some brief episodes of shortness of breath during the mornings. Occurs few times everyfew months. Feels that this may be a manifestation of her underlying atrial fibrillation. Does not get any of these episodes during the day. She does admit to gaining a significant amount of weight during the pandemic. Is eating more. Does have some isolated swelling in her right foot following an injury that occurred 3 months ago. Otherwise denies any PND. No presyncope or syncope. No bleeding issues on Eliquis therapy. ? Has made some dietary modifications. Is trying to lose weight. Systems review A 10 point review of systems was performed and pertinent negatives and positives are mentioned above. Past medical history Past Medical History: Diagnosis Date ??? Dyslipidemia 02/03/2020 ??? Paroxysmal atrial fibrillation (HCC-CMS) 02/03/2020 No past surgical history on file. Medications Current Outpatient Medications: apixaban (ELIQUIS) 5 mg tablet Diltiazem HCl 360 mg tablet extended release 24 hr lovastatin (MEVACOR) 20 mg tablet meclizine (ANTIVERT) 12.5 mg tablet No current facility-administered medications for this visit. Medication allergies Allergies Allergen Reactions ??? Oxycodone-Acetaminophen Other (See Comments) Other reaction(s): hallucinations Fhx/ Shx Social History Occupational History ??? Not on file Tobacco Use ??? Smoking status: Former Smoker Packs/day: 3.00 Years: 20.00 Pack years: 60.00 Last attempt to quit: 11/24/2004 Years since quittin.4 ??? Smokeless tobacco: Never Used Substance and Sexual Activity ??? Alcohol use: Not Currently ??? Drug use: Not on file ??? Sexual activity: Not on file Examination BP 122/72 Pulse 81 Resp 18 Ht (!) 149.9 cm (59) Wt 92.5 kg (204 lb) SpO2 97% BMI 41.20kg/m?? General - alert and orientated, no acute distress HEENT - SCOTT - oropharynx clear NECK - supple - no palpable lymphadenopathy - no carotid bruits Chest - good air entry - no focal crepitations - no wheeze CVS - heart sounds I and II normal - no added sounds or murmurs - no elevated JVP Abdomen - soft and non-tender - no signs of peritonism - bowel sounds present Extremities -trace edema right foot, distal pulses present, no clubbing Skin - intact Peripheral neurology - grossly intact Prior Echo 2012 - Normal. EF 65%. Prior Stress Testing ETT 2017 - Normal. EKG (04/28/2020) - sinus rhythm. Rate [address] or T wave changes. QTc 408 ms. Assessment and Plan 1. Paroxysmal atrial fibrillation (HCC-CMS) 70-year-old lady with a history of paroxysmal atrial fibrillation. She was previously symptomatic with palpitations. However, in the last number of months has not noticed much of her A. fib. Does get some intermittent episodes of shortness of breath that she feels may be related to her paroxysmal A. fib. Wishes to hold off on antiarrhythmic therapy. Continue diltiazem 360 mg daily. On examination today her pulse is regular likely in sinus rhythm. An EKG done in the clinic today reveals sinus rhythm. Her CHADSVASC score is 2. Continue Eliquis 5 mg twice daily.?? - EKG 12-LEAD Strongly encouraged her to increase activity levels and to optimize weight further. 2. 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 fib. 3. Dyslipidemia Continue lovastatin therapy. PCP is monitoring lipids.? Jr Lopez MD documented in this encounter Plan of Treatment Upcoming Encounters Date Type Department Care Team (Late st Contact Info) Description 02/14/2025 14:30 EDT Office Visit [facility] [address] [place] [phone] Hillary Tobin MD [address] [place] [address] [place] [address] documented as of this encounter Procedures Procedure Name Priority Date/Time Associated Diagnosis Comments EKG 12-LEAD Routine 04/28/2020 13:45 EDT Paroxysmal atrial fibrillation ([facility]-CMS) documented in this encounter Results * EKG 12-LEAD (04/28/2020 13:45 EDT) 04/28/2020 13:4 5 EDT Narrative [facility] - 04/28/2020 13:45 EDT ? [facility] Cardiology ? Test Date: ?2020-04-28 13:45:02 Pat Name: ? KATINA BRUNO ?Department: ?Room: ? Gender: ? F ?Branch Employment Coordinator: ?? MF : ?1950 ? Requested By: Order Number: ?Reading MD: ?? Hillary Tobin, MD ? Measurements Intervals ?[place] ? Rate: ? 80 ? P: ?29 HI: ? 148 ?QRS: ?-43 QRSD: ? 66 ? T: ?49 QT: ? 354 ? QTc: ?408 ? Interpretive Statements Normal sinus rhythm Left axis deviation Abnormal ECG Compared to ECG 01/27/2019 14:03:10 Atrial premature complex(es) no longer present Electronically Signed On 04-28-2020 23:14:31 EDT by Hillary Tobin MD [email or web address] [email or web address] [email or web address] Procedure Note Hillary Tobin MD - 04/28/2020 [facility] Test Date: 2020-04-28 13:45:02 Pat Name: KATINA BRUNO Department: Room: Gender: F Branch Employment Coordinator: : 1950 Requested By: Order Number: Reading MD: Hillary Tobin MD Measurements Intervals [place] Rate: 80 P: 29 HI: 148 QRS: -43 QRSD: 66 T: 49 QT: 354 QTc: 408 Interpretive Statements Normal sinus rhythm Left axis deviation Abnormal ECG Compared to ECG 01/27/2019 14:03:10 Atrial premature complex(es) no longer present Electronically Signed On 04-28-2020 23:14:31 EDT by Hillary Tobin MD [email or web address] [place] [email or web address] Jr Lopez MD CARDIAC ECG ORDERABLES Zenaida abbott Result [facility] documented in this encounter Visit Diagnoses Diagnosis Paroxysmal atrial fibrillation (HCC-CMS)- Primary Atrial fibrillation Current use of assisted anticoagulation Long-term (current) use of anticoagulants Dyslipidemia Other and unspecified hyperlipidemia documented in this encounter Discontinued Medications Medication Sig Discontinue Reason Start Date End Da te aspirin chewable 81 mg tablet 1 tab(s) orally once a day Therapy completed 04/28/2020 diltiazem (CARDIZEM CD) 360 mg ER capsule Duplicate Therapy 02/07/2020 04/28/2020 documented as of this encounter Historical Medications * This list may reflect changes made after this encounter. Medication Sig Dispense Quantity Refills Last Filled Start D ate End Date diltiazem (CARDIZEM CD) 360 mg ER capsule 02/07/202003/2020 added in this encounter Care Teams Accounting Administrative Assistant Relationship Specialty Start Date End Date Gera Alvarenga MD PCP - General 09/29/15 12/24/20 documented as of this encounter
--- OUTSIDE RECORDS SUMMARY | 2024-10-20 17:17 | XMS_ITS | Encounter Summary ---
Author Organization [facility] Address [address] [place] [address] Care Team Providers Care Associate Justice Name Role Phone Dorita Zimmerman RADIOLOGY SUPERVISOR Primary Care Provider Hillary Tobin MD Unavailable [phone] Reason for Visit * Reason Onset Date Comments Holter Placement 11/20/2023 Done about a we ek ago. Medication Management 11/20/2023 Stopped he r BP med yesterday Encounter Details Date Type Department Care Team (Late st Contact Info) Description 11/20/2023 Telephone [facility] [address] [place] [address] Hillary Tobin MD [address] [facility] [address] [address] Holter Placement (Done about a week ago. ); Medication Management (Stopped her BP med yesterday) Social History Tobacco Use Types Packs/Day Years [...] encounter Miscellaneous Notes * Telephone Encounter - Nita Feliz RN - 11/20/2023 1606 EST Spoke with patient and she [facility]. Since that time she has felt lightheaded and dizzy. She has a 14 day holter monitor placed during OV with Dr. Tobin on 11/11/23. This will be done on11/25/2023. She took her blood pressure 2 days ago and it was 95/43 and stated she stopped taking the Propranolol for 2 days and felt much better. She was concerned as she had heard to not stop the medication without weaning it off. Today she took 1 tablet (10mg). She is requesting advice of Dr. Tobin. Spoke with Dr. Tobin and he agrees that this medication should be weaned off. He is advising for patient to take 5 mg BID of Propranolol today and tomorrow and then stop on Friday. Pt has alreadytaking 10 mg at 1500 today. She will not take a second dose and then take 5 mg BID tomorrow. She agreed to plan. Encouraged her to contact office with any additional concerns. * Telephone Encounter - Nita Feliz RN - 11/20/2023 1140 EST LVM for pt to return call to discuss medications that were stopped and to obtain additional information. * Telephone Encounter - Tequila Blair - 11/20/2023 1015 EST Got her HM on about a week ago for sob and other issues she was experiencing. She noticed about a month or so ago she was put on BP meds by her Urologist and she just wanted to inform us that she stopped the BP meds and she is feeling good today with no SOB. Please call to discuss. Thanks documented in this encounter Plan of Treatment Upcoming Encounters Date Type Department Care Team (Late st Contact Info) Description 02/14/2025 14:30 EDT [facility] [address] [place] [phone] Hillary Tobin MD [address] [place] [phone] documented as of this encounter Visit Diagnoses Not on filedocumented in this encounter Care Teams Associate Justice Relationship Specialty Start Date End Date Dorita Zimmerman NP [address] [place] [phone] PCP - General 12/25/20 Hillary Tobin MD [address] [place] [phone] Cardiovascular Disease 04/03/22 documented as of this encounter
--- OUTSIDE RECORDS SUMMARY | 2024-10-20 17:17 | XMS_ITS | Encounter Summary ---
Author Organization [facility] Address [address] [place] [address] Care Team Providers Care It Compliance Manager Name Role Phone Unavailable Primary Care Provider Unavailabl e Encounter Details Date Type Department Care Team (Late st Contact Info) Description 04/17/2005 Results Only [facility] [address] [place] [address] Eladia Chicas MD [address] [place] [address] [place] [address] Social History Tobacco Use Types Packs/Day Years [...] Info) Description 02/14/2025 14:30 EDT Office Visit [facility] Cardiology Clinic [address] [place] [address] Hillary Tobin MD [address] [facility] [address] [place] [address] documented as of this encounter Procedures Procedure Name Priority Date/Time Associated Diagnosis Comments CYTOPATHOLOGY Routine 04/17/2005 0:00 EDT documented in this encounter Results * CYTOPATHOLOGY (04/17/2005 0:00 EDT) Pathology Report: CYTOPATHOLOGY REPORT Reports generated via electronic interface contain original data; however they are lacking the format of the original report. Caution should be taken when reading/interpreti ng unformatted reports. Name: ? KATINA BRUNO ? Accession #: ? [id number] : ? 1950 (Age: 55) ??F ?Collect Date: ? 04/17/2005 Location: ? [facility] ? Receive Date: ? 04/19/2005 Provider: ?ELADIA CHICAS MD Copy to: ? Specimen/Source: ?ThinPrep Pap Test, Cervix/Endocervix Last Menstrual Period: ? 2002 Other: ? HPVA - HPV testing requested if ASC-US on the current ThinPrep Pap test. ? SPECIMEN ADEQUACY ? Satisfactory for Evaluation - transformation zone component present GENERAL CATEGORIZATION ? Negative for Intraepithelial Lesion or Malignancy ? Document reviewed and electronically signed by: ? Mary Sharpe, SCT(ASCP) ? Report Date: ??05/01/2005 12:22 End of Report ANDREA POLLARD 04/17/2005 04/19/2005 us Eladia Chicas MD PATHOLOGY ORDERABLES Final Resu lt ANDREA POLLARD [address] [place] [address] documented in this encounter Visit Diagnoses Not on filedocumented in this encounter
--- OUTSIDE RECORDS SUMMARY | 2024-10-20 17:17 | XMS_ITS | Encounter Summary ---
Author Organization [facility] Address [address] [place] [address] Care Team Providers Care Foreign Language Interpreter Name Role Phone Gera Alvarenga MD Primary Care Provider U bassemailable Reason for Visit * Reason Onset Date Comments Medications Refill 10/31/2020 Encounter Details Date Type Department Care Team (Late st Contact Info) Description 10/31/2020 Refill [facility] Cardiology Clinic [address] [place] [address] Marvin Goodwin, RN Medications Refill Social History Tobacco Use Types [...] Start Date End Date dilTIAZem (CARDIZEM CD) 360 mg ER capsule Take 1 Cap by mouth daily. 90 Cap 3 10/31/2020 03/16/2021 documented in this encounter Miscellaneous Notes * Telephone Encounter - Marvin Goodwin RN - 10/31/2020 0761 EST UTD for office visit. Rx refill sent in for patient. documented in this encounter Plan of Treatment Upcoming Encounters Date Type Department Care Team (Late st Contact Info) Description 02/14/2025 14:30 EDT Office Visit [facility] Cardiology Clinic [address] [place] [address] Hillary Tobin MD [address] [facility] [place] [address] documented as of this encounter Visit Diagnoses Not on filedocumented in this encounter Discontinued Medications Medication Sig Discontinue Reason Start Date End Da te Diltiazem HCl 360 mg tablet extended release 24 hr 1 cap(s) orally once a day 11/27/2016 10/31/2020 diltiazem (CARDIZEM CD) 360 mg ER capsule TAKE ONE CAPSULE BY MOUTH EVERY DAY Reorder 08/03/2020 10/31/2020 documented as of this encounter Care Teams Foreign Language Interpreter Relationship Specialty Start Date End Date Gera Alvarenga MD PCP - General 09/29/15 12/24/20 documented as of this encounter
--- OUTSIDE RECORDS SUMMARY | 2024-10-20 17:17 | XMS_ITS | Encounter Summary ---
Author Organization [facility] Address [address] [place] [address] Care Team Providers Care Diamond Sawer Name Role Phone Dorita Zimmerman HOME MORTGAGE DISCLOSURE ACT SPECIALIST Primary Care Provider [phone] Hillary Tobin MD Unavailable [phone] Encounter Details Date Type Department Care Team (Late st Contact Info) Description 02/22/2021 Lab Requisition [facility] Pathology & Laboratory Medicine - [facility] [address] [place] [address] Outr Resulting Lab, Provider Social History Tobacco [...] Info) Description 02/14/2025 14:30 EDT Office Visit [facility] Cardiology Clinic [address] [place] [address] Hillary Tobin MD [address] [place] [address] [address] [place] [address] documented as of this encounter Procedures Procedure Name Priority Date/Time Associated Diagnosis Comments ZZCOVID-19 TEST [facility] PCR Today 02/21/2021 12:30 EDT COVID-19 TESTING Routine 02/21/2021 12:3 0 EDT documented in this encounter Results * COVID-19 TEST [facility] PCR (02/21/2021 12:30 EDT) Swab ENTIRE NASOPHARYNX / Unknown 02/21/2021 12:30 EDT 02/22/2021 16:57 EDT us Provider Outr Resulting Lab MICROBIOLOGY - GENER AL ORDERABLES Final Result [facility] [address] [place] [address] * COVID-19 TESTING (02/21/2021 12:30 EDT) COVID-19 rt-PCR Result Negative Negative 02/23/2021 14:30 EDT [facility] Comment: This test has [...] clinical observations, patient history, and epidemiological information. This test was developed and its performance characteristics determined by [facility]. It has not been cleared or approved by the [place] Food and Drug Administration. FDA does not require this test to go through premarket FDA review. This test is used for clinical purposes. It should not be regarded as investigational or for research. This laboratory is certified under the Clinical Laboratory Improvement Amendments (CLIA) as qualified to perform high complexity clinical laboratory testing. This test is based on the CDC COVID-19 Emergency Use Authorization (EUA) assay, with minor modification as defined by the FDA Performed on the [facility] 7 Flex RT-PCR System. Performing Lab [facility] 02/23/2021 14:30 EDT [facility] Swab 02/21/2021 12:3 0 EDT 02/22/2021 16:57 EDT us Provider Outr Resulting Lab MICROBIOLOGY - GENER AL ORDERABLES Final Result Performing Organization Address City/State/[facility] Co de Phone Number [facility] [address] [place] [address] documented in this encounter Visit Diagnoses Not on filedocumented in this encounter Care Teams Diamond Sawer Relationship Specialty Start Date End Date Dorita Zimmerman NP [address] [place] [phone] PCP - General 12/25/20 Hillary Tobin MD [address] [place] [address] [address] [place] [phone] Cardiovascular Disease 04/03/22 documented as of this encounter
--- OUTSIDE RECORDS SUMMARY | 2024-10-20 17:17 | XMS_ITS | Encounter Summary ---
Author Organization [facility] Address [address] [place] [address] Care Team Providers Care Offset Printing Operator Name Role Phone Dorita Zimmerman SPORTS MANAGEMENT INTERN Primary Care Provider [phone] Hillary Tobin MD Unavailable [phone] Encounter Details Date Type Department Care Team (Late st Contact Info) Description 03/01/2021 Lab Requisition [facility] Pathology & Laboratory Medicine - [facility] [address] [place] [address] Outr Resulting Lab, Provider Social History Tobacco [...] Description 02/14/2025 14:[address] [facility] Cardiology Clinic [address] [place] [address] Hillary Tobin MD [address] [place] [address] [address] [place] [address] documented as of this encounter Procedures Procedure Name Priority Date/Time Associated Diagnosis Comments ZZCOVID-19 TEST [facility] PCR Today 03/01/2021 11:30 EDT COVID-19 TESTING Routine 03/01/2021 11:3 0 EDT documented in this encounter Results * [facility]-19 [facility] (03/01/2021 11:30 EDT) Swab ENTIRE NASOPHARYNX / Unknown 03/01/2021 11:30 EDT 03/01/2021 20:43 EDT us Provider Outr Resulting Lab MICROBIOLOGY - GENER AL ORDERABLES Final Result [facility] [address] [place] [address] * COVID-19 TESTING (03/01/2021 11:30 EDT) COVID-19 rt-PCR Result Negative Negative 03/02/2021 0:05 EDT [facility] Comment: This test has [...] clinical observations, patient history, and epidemiological information. Performed on the [employer] Fusion instrument Performing Lab [facility] 03/02/2021 0:05 EDT [facility] Swab 03/01/2021 11:3 0 EDT 03/01/2021 20:43 EDT us Provider Outr Resulting Lab MICROBIOLOGY - GENER AL ORDERABLES Final Result [facility] [address] [place] [address] documented in this encounter Visit Diagnoses Not on filedocumented in this encounter Care Teams Offset Printing Operator Relationship Specialty Start Date End Date Dorita Zimmerman, SPORTS MANAGEMENT INTERN [address] [place] [phone] PCP - General 12/25/20 Hillary Tobin MD [address] [place] [address] [phone] Cardiovascular Disease 04/03/22 documented as of this encounter
--- OUTSIDE RECORDS SUMMARY | 2024-10-20 17:17 | XMS_ITS | Encounter Summary ---
Author Organization [facility] Address [address] [place] [address] Care Team Providers Care Shelter Monitor Name Role Phone SohailDorita mccurdy Yajaira SOLORZANO Primary Care Provider [phone] Reason for Visit * Reason Comments Dizziness Ziopatch placement * Cardiology (Routine/Next Available) - Specialty Report Received Specialty Diagnoses / Procedures Referred By Aicha beckwith Referred To Contact Diagnoses Lightheadedness Paroxysmal atrial fibrillation ([facility]) Procedures ZIO PATCH Hillary Tobin MD Phone: tel: fax: Referral ID Status Reason Start Date Expiration Date V isits Requested Visits Authorized [id number] Specialty Report Received 03/16/2021 1 1 Encounter Details Date Type Department Care Team (Latest Contact Info) Description 03/16/2021 9:00 EDT Ancillary Procedure [facility] [address] [place], [place] [id number] Lightheadedness; Paroxysmal atrial fibrillation (HCC-CMS) Social History Tobacco Use Types Packs/Day Years [...] documented in this encounter Progress Notes * Annamarie Snow MA - 03/16/2021 0900 EDT Pt to office for placement of 14 day Zio monitor. Pt aox3 and w/o complaints. Reviewed patient information and instructions with patient who verbalizes understanding. Zio monitor applied to left chest after appropriate skin prep per guidelines from pawn shop keeper. Pt demonstrated pushing event buttonto activate after application. Pt verbalizes understanding of documenting events after pushing the event button. Reviewed troubleshooting the device as well as how to contact the pawn shop keeper help line with questions/concerns. Pt verbalizes understanding of removal and how to mail it back to the pawn shop keeper. documented in this encounter Plan of Treatment Upcoming Encounters Date Type Department Care Team (Late st Contact Info) Description 02/14/2025 14:30 EDT Office Visit [facility] Cardiology Clinic [address] [place] [phone] Hillary Tobin MD [address] [place] [address]-[address] [place] [phone] Pending Results Name Type Priority Associated Diagnoses Date /Time ZIO PATCH Cardiac Services Routine Lightheadedness Paroxysmal atrial fibrillation (HCC-CMS) 03/16/2021 10:46 EDT documented as of this encounter Visit Diagnoses Diagnosis Lightheadedness Dizziness and giddiness Paroxysmal atrial fibrillation (HCC-CMS) Atrial fibrillation documented in this encounter Care Teams Shelter Monitor Relationship Specialty Start Date End Date Dorita Zimmerman NP [address] [place] [address] PCP - General 12/25/20 documented as of this encounter
--- OUTSIDE RECORDS SUMMARY | 2024-10-20 17:17 | XMS_ITS | Encounter Summary ---
Author Organization [facility] Address [address] [place] [address] Care Team Providers Care Senior Oracle Developer Name Role Phone Unavailable Primary Care Provider Unavailabl e Encounter Details Date Type Department Care Team (Late st Contact Info) Description 04/16/2004 Results Only [facility] [address] [place] [address] Eladia Chicas MD [address] [place] [address] [place] [address] Social History Tobacco Use Types Packs/Day Years [...] Info) Description 02/14/2025 14:30 EDT Office Visit [facility] Cardiology Clinic [address] [place] [address] Hillary Tobin MD [address] [facility] [place] [address] documented as of this encounter Procedures Procedure Name Priority Date/Time Associated Diagnosis Comments CYTOPATHOLOGY Routine 04/16/2004 0:00 EDT documented in this encounter Results * CYTOPATHOLOGY (04/16/2004 0:00 EDT) Pathology Report: CYTOPATHOLOGY REPORT Reports generated via electronic interface contain original data; however they are lacking the format of the original report. Caution should be taken when reading/interpreti ng unformatted reports. Name: ? KATINA BRUNO ? Accession #: ? [id number] : ? 1950 (Age: 54) ??F ?Collect Date: ? 04/16/2004 Location: ? [facility] ? Receive Date: ? 04/18/2004 Provider: ?ELADIA CHICAS MD Copy to: ? Specimen/Source: ?ThinPrep Pap Test, Cervix/Endocervix Last Menstrual Period: ? Menstrual/Pregnanc y Status: ? Post Menopausal Other: ? HPVA - HPV testing requested if ASC-US on the current ThinPrep Pap test. ? SPECIMEN ADEQUACY ? Satisfactory for Evaluation - transformation zone component present GENERAL CATEGORIZATION ? Negative for Intraepithelial Lesion or Malignancy ? Document reviewed and electronically signed by: ? Marianne Peña, NICK(ASCP)(IAC) ? Report Date: ??04/25/2004 12:31 End of Report ANDREA POLLARD 04/16/2004 04/18/2004 us Eladia Chicas MD PATHOLOGY ORDERABLES Final Resu lt ANDREA POLLARD [address] [place] [address] documented in this encounter Visit Diagnoses Not on filedocumented in this encounter
--- OUTSIDE RECORDS SUMMARY | 2024-10-20 17:17 | XMS_ITS | Encounter Summary ---
Author Organization [facility] Address [address] [place] [address] Care Team Providers Care Trailhead Maintenance Worker Name Role Phone Dorita Zimmerman Yajaira EXIT BOOTH AGENT Primary Care Provider [phone] Reason for Visit * Reason Comments Atrial Fibrillation Encounter Details Date Type Department Care Team (Late st Contact Info) Description 09/18/2021 10:45 EDT Office Visit [facility] [address] [place], [place] [phone] Hillary Tobin MD [address] [facility] [address] [place] [address] Paroxysmal atrial fibrillation (HCC-CMS) (HCC) (Primary Dx); 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; Mixed hyperlipidemia; Atrial tachycardia (HCC-CMS) (HCC); PAC (premature atrial contraction) Social History Tobacco Use Types Packs/Day Years [...] Sign Reading Time Taken Comments Blood Pressure 126/64 09/18/2021 1038 EDT Pulse 67 09/18/2021 1038 EDT Temperature - - Respiratory Rate - - Oxygen Saturation 97% 09/18/2021 1038 EDT Inhaled Oxygen Concentration - - Weight 85.3 kg (188 lb) 09/18/2021 1038 EDT Height 149.9 cm (4' 11) 09/18/2021 1038 EDT Body Mass Index 37.97 09/18/2021 1038 EDT documented in this encounter Functional Status [...] Progress Notes * Hillary Tobin MD - 09/18/[address] [facility] Clinic Visit Subjective: Chief Complaint(s): Atrial Fibrillation HPI: 71-year-old woman with a history of paroxysmal atrial fibrillation. Referred by PCP earlier this year for EP evaluation regarding lightheaded spells and bradycardia findings on Holter EKG. ? She has been symptomatic with palpitations with rapid heart rates during episodes of A. fib. ZIOpatch done in the past showed AF burden of 12%, a subsequent Holter was without AF but occasional bradycardia down to 45/min, without clear symptom correlation. ?? Today in the office, she reports increased palpitations in the last 4 days. This started with a 10-minute episode while sitting down, doing puzzles, terminated after about 10 minutes. During that episode she felt a little dizzy and mildly short of breath, did not have chest pain. Has had short episodes since then. She relates that to significantly increased stress levels related to caregiver stres s. On top of her usual care obligations towards an elderly man who lives in her house, she additionally has taken on to help a 94-year-old woman with dementia who lives down the street and an 84-year-old neighbor with activities of daily living. This does apparently live not much time to take care of her of her own needs. She had gained a significant amount of weight during the pandemic, now actively working on weight loss. Tries to walk 2 miles a day. [...] 25 mg tablet every 6 hours. ??? [facility] No current facility-administered medications for this visit. [...] otherwise negative. ROS Objective: Examination: Vitals: BP 126/64 (BP Cuff Location: Right arm, BP Patient Position: Sitting, BP Cuff Sizes: Adult, regular) Pulse 67 Ht (!) 149.9 cm (59) Wt 85.3 kg (188 lb) SpO2 97% BMI 37.97 kg/m?? Body mass index is 37.97 kg/m??. Physical Exam GENERAL APPEARANCE: no acute [...] nonfocal, normal speech, gait normal. Zio patch gambling monitor 02/2021: Baseline sinus rhythm, 45-130/min, average 76/min. [...] 1. Paroxysmal atrial fibrillation (HCC-CMS) (HCC) 2. Current use of assisted anticoagulation 3. Mixed hyperlipidemia 71-year-old woman with a history of paroxysmal atrial fibrillation. Recently presented for EP evaluation regarding recurrent episodes of lightheadedness and dyspnea on exertion. Already had an extensive cardiac work-up at [facility] with normal echo and stress test. A Holter EKG showed sinus rhythm, no recurrence of atrial fibrillation and no clear culprit arrhythmia. Subsequent Zio patch recording with symptomatic PACs and few brief ectopic atrial tachycardia spells. We had a detailed discussion, regarding her current symptoms, which most likely represent either increased occurrence of atrial tachycardia or atrial fibrillation, in both cases very likely related to her increased caregiver stress. I strongly recommended to look for help finding a more sustainable solution regarding her patient care duties, rather than trying to suppress her stress-related arrhythmia with more side effect from medication. At this point she has no clear indication for antiarrhythmic therapy. ??Her CHADSVASC score is 3 for age, HTN and female gender. Continue Eliquis 5 mg twice daily. Continue lovastatin therapy. PCP is monitoring lipids.? I spent a total of 30 minutes [...] Info) Description 02/14/2025 14:30 EDT Office Visit [facility] [address] [place] [place] [address] Hillary Tobin MD [address] [facility] [address] [place] [address] documented as of this encounter Visit Diagnoses Diagnosis Paroxysmal atrial fibrillation (HCC-CMS)- Primary Atrial fibrillation Current use of assisted anticoagulation Long-term (current) use of anticoagulants Mixed hyperlipidemia Atrial tachycardia (HCC-CMS) Other specified cardiac dysrhythmias PAC (premature atrial contraction) Supraventricular premature beats documented in this encounter Care Teams Trailhead Maintenance Worker Relationship Specialty Start Date End Date Dorita Zimmerman NP [address] [place] [phone] PCP - General 12/25/20 documented as of this encounter
--- OUTSIDE RECORDS SUMMARY | 2024-10-20 17:17 | XMS_ITS | Encounter Summary ---
Author Organization [facility] Address [address] [place] [address] Care Team Providers Care Desizing Machine Operator Head End Name Role Phone SohailDorita mccurdy Yajaira SOLORZANO Primary Care Provider [phone] Hillary Tobin MD Unavailable [phone] Reason for Visit * Reason Comments Atrial Fibrillation E-patch application * Cardiology (Routine/Next Available) - Specialty Report Received Specialty Diagnoses / Procedures Referred By Contac t Referred To Contact Diagnoses Atrial tachycardia (HCC-CMS) Paroxysmal atrial fibrillation (HCC-CMS) Shortness of breath Procedures EXTENDED HOLTER MONITOR (7-14 DAY) Hillary Tobin MD Phone: tel: fax: [facility] Referral ID Status Reason Start Date Expiration Date V isits Requested Visits Authorized [id number] Specialty Report Received 11/11/2023 1 1 Encounter Details Date Type Department Care Team (Latest Contact Info) Description 11/11/2023 10:45 EST Ancillary Procedure [facility] Cardiology Clinic [address] [place] [address] Atrial tachycardia; Paroxysmal atrial fibrillation (HCC-CMS); Shortness of breath Social History Tobacco Use Types Packs/Day Years [...] Progress Notes * Annamarie Snow MA - 11/11/2023 1045 EST Pt to office for placement of 14 day monitor ([employer] E-Patch). Pt aox3 and w/o complaints. Reviewed patient information and instructions with patient who verbalizes understanding. E-Patch monitor applied to left chest after appropriate skin prep per guidelines from filler feeder. Pt verbalizes under standing of documenting events in log book. Reviewed troubleshooting the device as well as how to contact the filler feeder help line with questions/concerns. Instructed in how to remove and reapply with new adhesive patch if/when original patch loses contact with skin. Pt verbalizes understanding of removal and how to mail it back to the filler feeder. documented in this encounter Plan of Treatment Upcoming Encounters Date Type Department Care Team (Late st Contact Info) Description 02/14/2025 14:30 EDT Office Visit [facility] Cardiology Clinic [address] [place] [address] Hillary Tobin MD [address] [facility] [place] [address] documented as of this encounter Procedures Procedure Name Priority Date/Time Associated Diagnosis Comments EXTENDED HOLTER MONITOR (7 OR 14 DAY) Routine 11/11/2023 11:23 EST Atrial tachycardia Paroxysmal atrial fibrillation (HCC-CMS) Shortness of breath documented in this encounter Results * EXTENDED HOLTER - 14 DAY PLACED IN CLINIC (11/11/2023 11:23 EST) Anatomical Region Laterality Modality Holter Narrative 12/02/2023 10:50 EST Study indication: PAF Analysis time: 13 d 19 h Findings: Average heart rate 67 bpm, range 45 - 106 bpm Rare ectopy. 63 atrial runs, longest 25 beats, fastest 167 bpm. No critical pauses or higher degree heart block 10 patient event(s). 1 event correlated with SVT, all other events did not correlate with arrhythmias us Hillary Tobin MD CARDIAC SERVICES ORDERA BLES Final Result documented in this encounter Visit Diagnoses Diagnosis Atrial tachycardia (HCC-CMS) Other specified cardiac dysrhythmias Paroxysmal atrial fibrillation (HCC-CMS) Atrial fibrillation Shortness of breath documented in this encounter Care Teams Desizing Machine Operator Head End Relationship Specialty Start Date End Date Dorita Zimmerman NP [address] [place] [phone] PCP - General 12/25/20 Hillary Tobin MD [address] [place] [address] [address] [place] [address] Cardiovascular Disease 04/03/22 documented as of this encounter
--- OUTSIDE RECORDS SUMMARY | 2024-10-20 17:17 | XMS_ITS | Encounter Summary ---
Author Organization [facility] Address [address] [place] [address] Care Team Providers Care Powder Coat Painter Name Role Phone Dorita Zimmerman Yajaira SOLORZANO Primary Care Provider [phone] Hillary Tobin MD Unavailable [phone] Encounter Details Date Type Department Care Team (Late st Contact Info) Description 01/29/2021 Lab Requisition [facility] Pathology & Laboratory Medicine - [facility] [address] [place] [address] Juan Pablo Alegria MD [address] [place] [address] [address] [place] [place], [place] [phone] Encounter for screening for malignant neoplasm of colon Social History Tobacco Use Types Packs/Day Years [...] Description 02/14/2025 14:30 EDT Office Visit [facility] Cardiology Clinic [address] [place] [address] Hillary Tobin MD [address] [facility] [address] [place] [address] documented as of this encounter Procedures Procedure Name Priority Date/Time Associated Diagnosis Comments SURGICAL PATHOLOGY Today 01/29/2021 12 :51 EST Encounter for screening for malignant neoplasm of colon documented in this encounter Results * SURGICAL PATHOLOGY (01/29/2021 12:51 EST) Final Diagnosis A. COLON, ASCENDING, BIOPSY: - Tubular adenoma. 01/30/2021 17:50 EST [facility] Attestation By the signature below, the attending physician certifies that they have 1) personally conducted a gross and/or microscopic examination of the described specimen(s), and/or personally interpreted the results of laboratory testing of the described specimen(s), and 2) personally rendered or confirmed the above diagnosis. 01/30/2021 17:50 [facility] at 1750 Clinical History Colonoscopy for screening 01/30/2021 17:50 [facility] Gross Description A. Received in formalin labelled with proper patient identification (initials W, R) and ascending colon polyp are 2 fragments of zapata tissue; each measuring 0.3 x 0.2 x 0.1 cm. The specimens are submitted in A1. ADRIANA GALVAN(ASCP) 01/30/2021 8:02 01/30/2021 17:50 EST [facility] Performing Lab [facility] 01/30/2021 17:50 [facility] Scanned Images 01/30/2021 17:50 [facility] Tissue ASCENDING COLON STRUCTURE / Unknown 01/29/2021 12:51 EST 01/29/2021 22:16 EST us Juan Pablo Alegria MD PATHOLOGY ORDERABLES Fin al Result [facility] [address] [place] [address] documented in this encounter Visit Diagnoses Diagnosis Encounter for screening for malignant neoplasm of colon Special screening for malignant neoplasms, colon documented in this encounter Care Teams Powder Coat Painter Relationship Specialty Start Date End Date Dorita Zimmerman NP [address] [place] [address] PCP - General 12/25/20 Hillary Tobin MD [address] [place] [phone] Cardiovascular Disease 04/03/22 documented as of this encounter
--- OUTSIDE RECORDS SUMMARY | 2024-10-20 17:17 | XMS_ITS | Encounter Summary ---
Author Organization [facility] Address [address] [place] [address] Care Team Providers Care Systems Engineering Manager Name Role Phone Gera Alvarenga MD Primary Care Provider U Dorita Farrell NP Primary Care Provider [phone] Hillary Tobin MD Unavailable [phone] Encounter Details Date Type Department Care Team (Late st Contact Info) Description 12/23/2016 Historical Results Only [facility] [address] [place] [address] Unknown, Provider, Social History Tobacco Use Types Packs/Day Years [...] 14:30 EDT Office Visit [facility] [address] [place] [address] Hillary Tobin MD [address] [place] [address] [place] [address] documented as of this encounter Procedures Procedure Name Priority Date/Time Associated Diagnosis Comments HISTORICAL STRESS TEST 12/23/2016 14:00 EST documented in this encounter Results * HISTORICAL STRESS TEST (12/23/2016 14:00 EST) Anatomical Region Laterality Modality Nuclear Stress 12/23/2016 14:0 0 EST Narrative 12/23/2016 14:00 EST ? [facility] ?[facility] [address] [place] [address] ? [id number] ?C A R D I A C ?S T R E S S ?T E S T ?R E P O R T NAME: KATINA BRUNO ?: 54 TELEPHONE: [phone] ? MR#: [id number] ? *[facility]* [address] [place] [address] Stress Electrocardiography Maxi protocol Date of study: ??12/23/2016 *PATIENT PRESENTATION* Height: ? 152.4cm ((60in) ) Blood Pressure: Weight: ? 89.1kg ((196lb) ) BSA: ?1.99m S 2 Ordering physician: Jr Lopez Impressions: ?? Normal study after maximal exercise. Summary: 1. Stress ECG conclusions: The stress ECG is negative. 2. Stress: There is a normal resting blood pressure with an appropriate ?? response to stress. The patient experienced no chest pain during ?? stress. Exercise capacity is average for age. Indication: ?? (CHEST PAIN). History: ??HISTORY OF PAF ( ZIO PATCH SHOWED ATRIAL FIB 12% OF THE TIME DURING MONITORING.) DAILY EPISODES OF PALPITATIONS, CHEST TIGHTNESS AND SOB. THESE EPISODES START AT 4 AM AND LAST UNTIL 12 NOON. DISCOMFORT IS MADE WORSE WITH ANY MOVEMENT. SCREENING TODAY PRIOR TO STARTING DOFETILIDE THERAPY NO PREVIOUS CAD. ??Risk factors: ??Family history of coronary artery disease. Obesity. MEDS: DILTIAZEM 420 MG, ASA 81 MG, LOVASTATIN 20 MG. ALLERGIES: PERCOCET. Protocol: ??Maxi protocol. Baseline ECG: ??NSR- 71 BPM. Stress protocol: ? [facility] ?[facility] [address] [place], [place] [address] ? [id number] ?C A R D I A C ?S T R E S S ?T E S T ?R E P O R T NAME: DAMIONKATINA ?: 54 TELEPHONE: [phone] ? MR#: [id number] ? + +---+ +---+ !Stage ? !HR !BP (mmHg) ?? !Sat! + +---+ +---+ !Baseline supine ? !71 !147/58 (88) !---! + +---+ +---+ !Baseline standing ? !78 !135/62 (86) !---! + +---+ +---+ !Stage I; 1.7mph, 10degrees; 3 min !100!181/56 (98) !96%! + +---+ +---+ !Stage II; 2.5mph, 12degrees; 3 min!136! !97%! + +---+ +---+ !Peak stress ? !141! !---! + +---+ +---+ !Immediate post stress ? !---! !97%! + +---+ +---+ !Recovery; 1 min ? !126!180/63 (102)!---! + +---+ +---+ !Recovery; 3 min ? !102!167/64 (98) !---! + +---+ +---+ !Recovery; 6 min ? !97 !157/64 (95) !---! + +---+ +---+ * Stress results: ?? Maximal heart rate during stress was 141bpm (90% of maximal predicted heart rate). The maximal predicted heart rate was 156bpm. There is a normal resting blood pressure with an appropriate response to stress. The rate-pressure product for the peak heart rate and blood pressure was 19055ws Hg/min. ??The patient experienced no chest pain during stress. ?? Exercise capacity is average for age. Stress ECG: AVERAGE FUNCTIONAL CAPACITY FAIR EXERCISE ADALID- 7 METS ( 5 MINUTES 44 SECONDS IN MAXI PROTOCOL- STOPPED DUE TO SOB, WHEEZING- O2 SAT 97%) MAX HR- 141 BPM NO ECTOPY NO CHEST PAIN NO ISCHEMIC ECG CHANGES. ??The stress ECG is negative. Study data: ??Hillary Tobin MD supervised and was readily available during the procedure. This study was interpreted by [facility] [place] [facility]. ??Study status: ??Routine. ??Consent: ??The risks, benefits, and alternatives to the procedure were explained to the patient and informed consent was obtained. ??Procedure: ??Initial setup. A baseline ECG was recorded. Surface ECG leads and manual cuff blood pressure measurements were monitored. Heart sounds: Normal. Lung sounds: Normal. Treadmill exercise testing was performed using the Maxi protocol. The patient exercised for 5 min 44 sec, to protocol stage 2, to a maximal work rate of 7mets. Study completion: ??The patient tolerated the procedure well and was discharged from the lab. ??Discharge: ??The patient left the laboratory in ? [facility] ?[address] [place], [place] [address] ? [id number] ?C A R D I A C ?S T R E S S ?T E S T ?R E P O R T NAME: KATINA BRUNO ?: 54 TELEPHONE: [phone] ? MR#: [id number] ? stable condition. ? Birthdate: ??Patient birthdate: 1950. ??Sex: Gender: female. ??Study date: ??Study date: 12/23/2016. Study time: 02:00 PM. Signature Documentation: ?? The Stress ECG portion of this study was interpreted by Hillary Tobin MD. Electronically signed by Hillary Tobin 12/23/2016 22:56 Procedure Note Hillary Tobin MD - 09/12/[address] [facility] [address] [place], [place] [address] [id number] C A R D I A C S T R E S S T E S T R E P O R T NAME: GILBERTO BRUNOOB: 54 TELEPHONE: [phone] MR#: [id number] [facility]#:[id number] *[facility]* [address] [place] [address] Stress Electrocardiography Maxi protocol Date of study: 12/23/2016 *PATIENT PRESENTATION* Height: 152.4cm ((60in) ) Blood Pressure: Weight: 89.1kg ((196lb) ) BSA: 1.99m S 2 Ordering physician: Jr Lopez Impressions: Normal study after maximal exercise. Summary: 1. Stress ECG conclusions: The stress ECG is negative. 2. Stress: There is a normal resting blood pressure with an appropriate response to stress. The patient experienced no chest pain during stress. Exercise capacity is average for age. Indication: (CHEST PAIN). History: HISTORY OF PAF ( ZIO PATCH SHOWED ATRIAL FIB 12% OF THE TIME DURING MONITORING.) DAILY EPISODES OF PALPITATIONS, CHEST TIGHTNESS AND SOB. THESE EPISODES START AT 4 AM AND LAST UNTIL 12 NOON. DISCOMFORT IS MADE WORSE WITH ANY MOVEMENT. SCREENING TODAY PRIOR TO STARTING DOFETILIDE THERAPY NO PREVIOUS CAD. Risk factors: Family history of coronary artery disease. Obesity. MEDS: DILTIAZEM 420 MG, ASA 81 MG, LOVASTATIN 20 MG. ALLERGIES: PERCOCET. Protocol: Maxi protocol. Baseline ECG: NSR- 71 BPM. Stress protocol: [facility] [address] [place] [address] [id number] C A R D I A C S T R E S S T E S T R E P O R T NAME: GILBERTO BRUNOOB: 54 TELEPHONE: [phone] MR#: [id number] + +---+ +---+ !Stage !HR !BP (mmHg) !Sat! + +---+ +---+ !Baseline supine !71 !147/58 (88) !---! + +---+ +---+ !Baseline standing !78 !135/62 (86) !---! + +---+ +---+ !Stage I; 1.7mph, 10degrees; 3 min !100!181/56 (98) !96%! + +---+ +---+ !Stage II; 2.5mph, 12degrees; 3 min!136! !97%! + +---+ +---+ !Peak stress !141! !---! + +---+ +---+ !Immediate post stress !---! !97%! + +---+ +---+ !Recovery; 1 min !126!180/63 (102)!---! + +---+ +---+ !Recovery; 3 min !102!167/64 (98) !---! + +---+ +---+ !Recovery; 6 min !97 !157/64 (95) !---! + +---+ +---+ * Stress results: Maximal heart rate during stress was 141bpm (90% of maximal predicted heart rate). The maximal predicted heart rate was 156bpm. There is a normal resting blood pressure with an appropriate response to stress. The rate-pressure product for the peak heart rate and blood pressure was 63511gw Hg/min. The patient experienced no chest pain during stress. Exercise capacity is average for age. Stress ECG: AVERAGE FUNCTIONAL CAPACITY FAIR EXERCISE ADALID- 7 METS ( 5 MINUTES 44 SECONDS IN MAXI PROTOCOL- STOPPED DUE TO SOB, WHEEZING- O2 SAT 97%) MAX HR- 141 BPM NO ECTOPY NO CHEST PAIN NO ISCHEMIC ECG CHANGES. The stress ECG is negative. Study data: Hillary Tobin MD supervised and was readily available during the procedure. This study was interpreted by [facility] [place] [facility]. Study status: Routine. Consent: The risks, benefits, and alternatives to the procedure were explained to the patient and informed consent was obtained. Procedure: Initial setup. A baseline ECG was recorded. Surface ECG leads and manual cuff blood pressure measurements were monitored. Heart sounds: Normal. Lung sounds: Normal. Treadmill exercise testing was performed using the Maxi protocol. The patient exercised for 5 min 44 sec, to protocol stage 2, to a maximal work rate of 7mets. Study completion: The patient tolerated the procedure well and was discharged from the lab. Discharge: The patient left the laboratory in [facility] [address] [place], [place] [address] [id number] C A R D I A C S T R E S S T E S T R E P O R T NAME: GILBERTO BRUNOOB: 54 TELEPHONE: [phone] MR#: [id number] stable condition. Birthdate: Patient birthdate: 1950. Sex: Gender: female. Study date: Study date: 12/23/2016. Study time: 02:00 PM. Signature Documentation: The Stress ECG portion of this study was interpreted by Hillary Tobin MD. Electronically signed by Hillary Tobin 12/23/2016 22:56 us Provider Unknown CARDIAC NM ORDERABLES Final Result documented in this encounter Visit Diagnoses Not on filedocumented in this encounter Care Teams Systems Engineering Manager Relationship Specialty Start Date End Date Gera Alvarenga MD PCP - General 09/29/15 12/24/20 Dorita Zimmerman NP [address] [place] [address] PCP - General 12/25/20 Hillary Tobin MD [address] [place] [address] [address] [place] [address] Cardiovascular Disease 04/03/22 documented as of this encounter
--- OUTSIDE RECORDS SUMMARY | 2024-10-20 17:17 | XMS_ITS | Encounter Summary ---
Author Organization [facility] Address [address] [place] [address] Care Team Providers Care Microcomputer Support Specialist Name Role Phone Dorita Zimmerman JEANINE Primary Care Provider [phone] Hillary Tobin MD Unavailable Reason for Visit * Reason Onset Date Comments Medication Management 12/16/2023 Encounter Details Date Type Department Care Team (Late st Contact Info) Description 12/16/2023 Telephone [facility] [address] [place] [address] Hillary Tobin MD [address] [facility] [address] [address] Medication Management Social History Tobacco Use Types Packs/Day Years [...] encounter Miscellaneous Notes * Telephone Encounter - Hillary Tobin MD - 12/25/[address] Morin's call. Explained that betablockers are not principally contraindicated, but (due to bradycardia in the past) need to be uptitrated slowly. All questions answered. JM * Telephone Encounter - Angus Andersen - 12/16/[address] Morin would like to speak with Dr. Tobin regarding the patients medication and essential tremors that pt is being seen in Neuro for. Patient is on diltiazem, can she take propanolol also or is there a contraindication? Please call her back to discuss documented in this encounter Plan of Treatment Upcoming Encounters Date Type Department Care Team (Late st Contact Info) Description 02/14/2025 14:30 EDT Office Visit [facility] [address] [place] [address] Hillary Tobin MD [address] [place] [address] [place] [phone] documented as of this encounter Visit Diagnoses Not on filedocumented in this encounter Care Teams Microcomputer Support Specialist Relationship Specialty Start Date End Date Dorita Zimmerman NP [address] [place] [phone] PCP - General 12/25/20 Hillary Tobin MD [address] [place] [address] [address] [place] [address] Cardiovascular Disease 04/03/22 documented as of this encounter
--- OUTSIDE RECORDS SUMMARY | 2024-10-20 17:17 | XMS_ITS | Encounter Summary ---
Author Organization [facility] Address [address] [place] [address] Care Team Providers Care Bleacher [employer] Name Role Phone Dorita Zimmerman DISABILITY RATER Primary Care Provider [phone] Hillary Tobin MD Unavailable [phone] Reason for Visit * Reason Comments Atrial Fibrillation Tachycardia Shortness of Breath Encounter Details Date Type Department Care Team (Late st Contact Info) Description 08/09/2024 11:15 EDT Office Visit [facility] [address] [place] [address] Hillary Tobin MD [address] [facility] [address] [place] [address] Paroxysmal atrial fibrillation (HCC-CMS) (Primary Dx); PAC (premature atrial contraction); Mixed hyperlipidemia; Atrial tachycardia (HCC-CMS); History of intracranial hemorrhage; Cerebral amyloid angiopathy (CODE) Social History Tobacco Use Types Packs/Day Years [...] 1135 EDT Temperature - - Respiratory Rate - - Oxygen Saturation 96% 08/09/2024 1103 EDT Inhaled Oxygen Concentration - - Weight 85.3 kg (188 lb) 08/09/2024 1103 EDT Height 149.9 cm (4' 11.02) 08/09/2024 1103 EDT Body Mass Index 37.95 08/09/2024 1103 EDT documented in this encounter Functional Status [...] Progress Notes * Hillary Tobin MD - 08/09/2024 1115 EDT [facility] Visit Subjective: Chief Complaint(s): Atrial Fibrillation , Tachycardia, and Shortness of Breath HPI: 74 y.o. woman with a history of paroxysmal atrial fibrillation, CHRISTOPHER(not on CPAP), HLD, obesity and HTN. Initially referred 2020 for EP evaluation regarding lightheaded spells and bradycardia findingson Holter EKG. She was found to be symptomatic with palpitations with rapid heart rates during PAF.ZIOpatch showed AF burden of 12%, a subsequent Holter was without AF but occasional bradycardia down to 45/min, without clear symptom correlation. CHADSVASC score was 3 for age, HTN and female genderand she was anticoagulated with Eliquis. She had a COVID infection in September 2022 which caused significant hair loss. She also was found to have a adrenal gland tumor, treated and followed at [facility]. She presented in October 2023 with lightheadedness, increased shortness of breath and short-term memory issues. Subsequent Holter EKG without significant bradycardia and occasional brief atrial tachycardia spells. She reports a very eventful summer: She underwent laparoscopic hysterectomy for postmenopausal bleeding at [facility] on 04/23/2024, which was without complications. Eliquis was on hold in the perioperativephase. On 05/05/2024 she presented to the [facility] ED for evaluation of acute onset severe headache 2 days prior, associated with nausea and vomiting as well as vision changes with complete hemianopia. She was found to have R occipital brain hemorrhage without intraventricular extension or shift. After EliquisAC reversal with aPCC at [facility], she was transferred to [facility] for further management of intraparenchymal brain hemorrhage. MRI demonstrated right occipital hemorrhage with intraventricular extension, surrounding edema and sulcal effacement, but without significant compression or hydrocephalus. MRI also showed multiple chronic microhemorrhages and hemosiderin staining consistent with cerebral amyloidangiopathy. No mass or underlying vascular abnormality was identified. TTE revealed EF 75%, no LV WMAs. Most likely etiology of hemorrhage was considered to be cerebral amyloid angiopathy in the setting of anticoagulation use. Statin was discontinued due associated bleeding risk in CAA. She was continued on home diltiazem for paroxysmal AF and no adjustments to rate control were needed. Other continued home meds included calcium and vitamin D for osteoporosis, tramadol prn for chronic neck/back pain. Eliquis was discontinued. Aspirin 81 mg/day was started 2 weeks later at the end of May 17. She saw Dr. Causey at [facility] on 07/28/2024 and she is scheduled to undergo WATCHMAN LAAO procedure at [facility] in August 2024. Today in the office she reports progressive improvement of her visual deficits. Her gait is still unsteady, but also slowly improving. She continues to have occasional PAF episodes up to 1 hour duration. Denies exertional chest pain, shortness of breath at rest, orthopnea, PND, fevers, chills, digestive troubles.. Current Outpatient Medications Medication Sig Dispense Refill aspirin chewable 81 mg tablet Take 1 Tablet by mouth daily. cholecalciferol, Vitamin D3, 25 mcg (1,000 unit) tablet Take 1 Tablet by mouth daily. dilTIAZem (CARDIZEM CD) 300 mg ER capsule TAKE ONE CAPSULE BY MOUTH EVERY DAY 90 Capsule 3 meclizine (ANTIVERT) 25 mg tablet 3 times daily as needed. (Patient not taking: Reported on 11/20/2023) traMADol (ULTRAM) 50 mg tablet Take 1 Tablet by mouth every 6 hours as needed for Pain. No current facility-administered medications for this visit. Past medical history Past Medical History: Diagnosis Date Dyslipidemia 02/03/2020 Paroxysmal atrial fibrillation (HCC-CMS) 02/03/2020 No past surgical history on file. Medication allergies Allergies Allergen Reactions Oxycodone-Acetaminophen Other (See Comments) Other reaction(s): hallucinations Fhx/ Shx Social History Occupational History Not on file Tobacco Use Smoking status: Former Smoker Packs/day: 3.00 Years: 20.00 Pack years: 60.00 Last attempt to quit: 11/24/2004 Years since quittin.4 Smokeless tobacco: Never Used Substance and Sexual Activity Alcohol use: Not Currently Drug use: Not on file Sexual activity: Not on file Family History Problem Relation Age of Onset Heart murmur Mother Coronary Artery Disease Father Heart Attack Father 45 Heart Attack Sister Heart Attack Brother Data review: Echo 2013 - Normal. EF 65%. Stress Testing ETT 2016 - Normal. EKG (04/28/2020) - sinus rhythm. [...] Chest CT 03/13/2021: Mild pulmonary emphysematous changes. I have reviewed current problem list and current medications. ROS: A 10-system ROS was performed, pertinent items as mentioned in HPI, otherwise negative. ROS Objective: Examination: Vitals: BP 120/70 (BP Cuff Location: Right arm, BP Patient Position: Sitting, BP Cuff Sizes: Adult, regular) Pulse 76 Ht (!) 149.9 cm (59.02) Wt 85.3 kg (188 lb) SpO2 96% BMI 37.95 kg/m?? Body mass index is 37.95 kg/m??. Physical Exam GENERAL APPEARANCE: no acute [...] dry. NEUROLOGIC EXAM: alert & oriented x3, slow speech, unsteady gait, visual pro n/t. Zio patch surveillance system monitor 02/2021: Baseline sinus rhythm, 45-130/min, average 76/min. Rare PAC, less than 1%, 31 atrial runs, consistent with EAT, fastest 5 beats at 179/min, longest 16 beats at 104/min, rare PVC, less than 1%, no VT.No significant pauses. 20 triggered events, all sinus rhythm, 5 of them with PACs. 14 symptom events with a combination of shortness of breath, pounding, lightheaded, dizzy, chest pain/pressure, skipped/irregular beats of with sinus rhythm, some of them with PAC. ePatch Extended Holter 10/2023: Average heart rate 67 bpm, range 45 - 106 bpm Rare ectopy. 63 atrial runs, longest 25 beats, fastest 167 bpm. No critical pauses or higher degree heart block 10 patient event(s). 1 event correlated with SVT, all other events did not correlate with arrhythmias. Echo 05/06/2024, [facility]: -Left ventricular systolic function is hyperdynamic. The left ventricular ejection fraction is 75% by Ruth's biplane. There are no segmental wall motion abnormalities. -The right ventricle is of normal size. Right ventricular systolic function is normal. -There is aortic valve sclerosis without stenosis. Assessment & Plan: 1. Paroxysmal atrial fibrillation (HCC-CMS) 2. PAC (premature atrial contraction) 3. Mixed hyperlipidemia 4. Atrial tachycardia (HCC-CMS) 5. History of intracranial hemorrhage 74 y.o. woman with a history of paroxysmal atrial fibrillation , CHRISTOPHER(not on CPAP), HLD, obesity andHTN. Had recurrent episodes of lightheadedness and dyspnea on exertion in 2020 with extensive cardiac work-up at [facility] with normal echo and stress test. A Holter EKG showed sinus rhythm, no recurrenceof atrial fibrillation and no clear culprit arrhythmia. Subsequent Zio patch recording with symptomatic PACs and few brief ectopic atrial tachycardia spells. Her CHADSVASC score was 3 for age, HTN and female gender, was anticoagulated with Eliquis 5 mg twice daily. Had presented with more episodes of lightheadedness, increased SOB and short term memory issues. Subsequent Holter without bradycardia, but episodes of brief AT. Had laparoscopic hysterectomy/BSO at [facility] in March 2023. Presented with CABA in April 2023, found to have intraparenchymal occipital hemorrhage causing visual field defects and gait instability, now slowly improving neuro situation. Was diagnosed with cerebral amyloid angiopathy, Eliquis and Statin wered discontinued. ASA 81mg/d started [address] anning to undergo Watchman LAAO procedure at [facility] in August 2024. BP is well controlled today. Detailed discussion of bleeding vs. clotting risk issues. The critical point is short-term AC post procedure. I explained that I fully trust my [facility] colleagues expertise. All questions answered. I spent a total of 30 minutes [...] Description 02/14/2025 14:30 EDT Office Visit [facility] [address] [place], [place] [phone] Hillary Tobin MD [address] [facility] [address] [place] [address] documented as of this encounter Visit Diagnoses Diagnosis Paroxysmal atrial fibrillation (HCC-CMS)- Primary Atrial fibrillation PAC (premature atrial contraction) Supraventricular premature beats Mixed hyperlipidemia Atrial tachycardia (HCC-CMS) Other specified cardiac dysrhythmias History of intracranial hemorrhage Personal history of other diseases of circulatory system Cerebral amyloid angiopathy (CODE) documented in this encounter Discontinued Medications Medication Sig Discontinue Reason Start Date End Da te propRANolol (INDERAL) 10 mg tablet Take 1 Tablet by mouth 2 times daily. Alternate therapy 10/23/2023 08/09/2024 norethindrone (AYGESTIN) 5 mg tablet Take 1 Tablet by mouth 2 times daily. Patient Stopped Taking 11/08/2023 08/09/2024 lovastatin (MEVACOR) 40 mg tablet Take 1 Tablet by mouth at bedtime. Therapy completed 12/25/2020 08/09/2024 calcium carbonate/vitamin D3 (CALCIUM 500 + D ORAL) Take by mouth daily. Alternate therapy 08/09/2024 apixaban (ELIQUIS) 5 mg tablet 1 tab(s) orally 2 times a day Alternate therapy 02/26/2017 08/09/2024 documented as of this encounter Historical Medications * This list may reflect changes made after this encounter. aspirin chewable 81 mg tablet Take 1 Tablet by mouth daily. added in this encounter Care Teams Bleacher [employer] Relationship Specialty Start Date End Date Dorita Zimmerman NP [address] [place] [address] PCP - General 12/25/20 Hillary Tobin MD [address] [place] [phone] Cardiovascular Disease 04/03/22 documented as of this encounter
--- OUTSIDE RECORDS SUMMARY | 2024-10-20 17:17 | XMS_ITS | Encounter Summary ---
Author Organization [facility] Address [address] [place] [address] Care Team Providers Care Customer Services Supervisor Name Role Phone SohailDorita mccurdy Yajaira SOLORZANO Primary Care Provider [phone] Hillary Tobin MD Unavailable [phone] Encounter Details Date Type Department Care Team (Late st Contact Info) Description 12/03/2023 Lab Requisition [facility] Pathology & Laboratory Medicine - [facility] [address] [place] [address] Outr Resulting Lab, Provider Social History Tobacco [...] Info) Description 02/14/2025 14:30 EDT Office Visit [facility]iology Clinic [address] [place] [address] Hillary Tobin MD [address] [address] documented as of this encounter Procedures Procedure Name Priority Date/Time Associated Diagnosis Comments CORTISOL Routine 12/03/2023 8:00 EST documented in this encounter Results * CORTISOL (12/03/2023 8:00 EST) Cortisol 3 See Note ug/dL 12/03/2023 17:50 EST [facility] Comment: NOTE: Reference Ranges (from OCD IFU): Collected Before 10:00 AM: ??4 - 23 ug/dL Collected After 5:00 PM: ?2 - 14 ug/dL The results of this assay can be falsely elevated due to the consumption of Biotin. Blood VENOUS BLOOD / Unknown 12/03/2023 8:00 EST 12/03/2023 17:00 EST us Provider Outr Resulting Lab CHEMISTRY & BLOOD GA S ORDERABLES Final Result [facility] [address] [place] [address] documented in this encounter Visit Diagnoses Not on filedocumented in this encounter Care Teams Customer Services Supervisor Relationship Specialty Start Date End Date Dorita Zimmerman NP [address] [place] [address] PCP - General 12/25/20 Hillary Tobin MD [address] [address] Cardiovascular Disease 04/03/22 documented as of this encounter
--- OUTSIDE RECORDS SUMMARY | 2024-10-20 17:17 | XMS_ITS | Encounter Summary ---
Author Organization [facility] Address [address] [place] [address] Care Team Providers Care Embedded Firmware Engineer Name Role Phone Dorita Zimmerman Yajaira LENS GENERATOR Primary Care Provider [phone] Hillary Tobin MD Unavailable [phone] Reason for Referral * Cardiology (Routine/Next Available) - Specialty Report Received Specialty Diagnoses / Procedures [facility] Contact Diagnoses Atrial tachycardia (HCC-CMS) Paroxysmal atrial fibrillation (HCC-CMS) Shortness of breath Procedures EXTENDED HOLTER MONITOR (7-14 DAY) Hillary Tobin MD Phone: tel: fax: [facility] Referral ID Status Reason Start Date Expiration Date V isits Requested Visits Authorized [id number] Specialty Report Received 11/11/2023 1 1 Reason for Visit * Reason Comments Atrial Fibrillation Dizziness Shortness of Breath Encounter Details Date Type Department Care Team (Late st Contact Info) Description 11/11/2023 10:30 EST Office Visit [facility] Cardiology Clinic [address] [place] [address] Hillary Tobin MD 130 [facility] [address] [place] [address] Atrial tachycardia (Primary Dx); Mixed hyperlipidemia; PAC (premature atrial contraction); Paroxysmal atrial fibrillation (HCC-CMS); Current use of intermediate designer anticoagulation; Shortness of breath; Lightheadedness Social History Tobacco Use Types Packs/Day Years [...] Reading Time Taken Comments Blood Pressure 120/70 11/11/2023 1013 EST Pulse 64 11/11/2023 1013 EST Temperature - - Respiratory Rate - - Oxygen Saturation 98% 11/11/2023 1013 EST Inhaled Oxygen Concentration - - Weight 86.2 kg (190 lb) 11/11/2023 1013 EST Height 149.9 cm (4' 11) 11/11/2023 1013 EST Body Mass Index 38.38 11/11/2023 1013 EST documented in this encounter Functional Status [...] Progress Notes * Hillary Tobin MD - 11/11/2023 1030 EST [facility] Cardiology Clinic Visit Subjective: Chief Complaint(s): Atrial Fibrillation HPI: 73-year-old woman with a history of paroxysmal atrial fibrillation. Referred 2020 for EP evaluationregarding lightheaded spells and bradycardia findings on Holter EKG. She was symptomatic with palpitations with rapid heart rates during episodes of A. fib. ZIOpatch showed AF burden of 12%, a subsequent Holter was without AF but occasional bradycardia down to 45/min,without clear symptom correlation. She had a COVID infection in September 2022 which caused significant hair loss. She also was found to have a adrenal gland tumor, treated and followed at [facility]. Today in the office, she reports not getting enough exercise, which has led to weight gain. This inturn has increased knee pain issues No recent chest pain or palpitations, but recurrent episodes oflightheadedness and shortness of breath in random situations. Some issues with increased depression, no syncope. Feels that her memory is getting worse especially for short term information. She recently tore a ligament in her R foream, now wearing a brace. Denies exertional chest pain, shortness of breath at rest, orthopnea, PND, fevers, chills, digestive troubles, bleeding issues. She had a GI bleeding issue in the past that resolved after polyp removal. Current Outpatient Medications Medication Sig Dispense Refill apixaban (ELIQUIS) 5 mg tablet 1 tab(s) orally 2 times a day calcium carbonate/vitamin D3 (CALCIUM 500 + D ORAL) Take by mouth daily. cholecalciferol, Vitamin D3, 25 mcg (1,000 unit) tablet Take 1 Tablet by mouth daily. dilTIAZem (CARDIZEM CD) 300 mg ER capsule TAKE ONE CAPSULE BY MOUTH EVERY DAY 90 Capsule 3 lovastatin (MEVACOR) 40 mg tablet Take 1 Tablet by mouth at bedtime. meclizine (ANTIVERT) 25 mg tablet 3 times daily as needed. norethindrone (AYGESTIN) 5 mg tablet Take 1 Tablet by mouth 2 times daily. propRANolol (INDERAL) 10 mg tablet Take 1 Tablet by mouth 2 times daily. traMADol (ULTRAM) 50 mg tablet Take 1 [...] - Normal. EF 65%. Stress Testing ETT 2017 - Normal. EKG [...] Sitting, BP Cuff Sizes: Adult, large) Pulse 64 Ht (!) 149.9 cm (59) Wt 86.2 kg (190 lb) SpO2 98% BMI 38.38 kg/m?? Body mass index is 38.38 kg/m??. Physical Exam GENERAL APPEARANCE: no acute [...] nonfocal, normal speech, gait normal. Zio patch case monitor 02/2021: Baseline sinus rhythm, 45-130/min, average [...] them with PAC. Assessment & Plan: 1. Atrial tachycardia EXTENDED HOLTER MONITOR (7-14 DAY) 2. Mixed hyperlipidemia 3. PAC (premature atrial contraction) 4. Paroxysmal atrial fibrillation (HCC-CMS) EXTENDED HOLTER MONITOR (7-14 DAY) 5. Current use of fdc anticoagulation 6. Shortness of breath EXTENDED HOLTER MONITOR (7-14 DAY) 7. Lightheadedness 73-year-old woman with a history of paroxysmal atrial fibrillation. Had recurrent episodes of lightheadedness and dyspnea on exertion in 2020. Had an extensive cardiac work-up at [facility] with normal echo and stress test. A Holter EKG showed sinus rhythm, no recurrence of atrial fibrillation and no clear culprit arrhythmia. Subsequent Zio patch recording with symptomatic PACs and few brief ectopic atrial tachycardia spells. [place] more deconditioned after Covid infection in 09/2022, but without recurrence of palpitation symptoms. Her CHADSVASC score is 3 for age, HTN and female gender, recommended to continue Eliquis 5 mgtwice daily. Now with more episodes of lightheadedness and SOB. Will start evaluation with an extended Holter. Recommended to talk to her PCP about referral to Ortho regarding knee pain issues. She also might need a referral to memory clinic. I spent a total of 30 minutes on the date of this encounter meeting with the patient and reviewing documentation/coordinating care as described in the above note. No procedures were performed at the time of the visit. Hillary Tobin MD * Angus Andersen - 11/11/2023 1030 EST 11/18/23 OV note faxed to PCP. documented in this encounter Plan of Treatment Upcoming Encounters Date Type Department Care Team (Late st Contact Info) Description 02/14/2025 14:30 EDT Office Visit [facility] Cardiology Clinic [address] [place], [place] [address] Hillary Tobin MD 130 [facility] [address] [place] [address] documented as of this encounter Results * EXTENDED HOLTER - [...] this encounter Visit Diagnoses Diagnosis Atrial tachycardia (HCC-CMS)- Primary Other specified cardiac dysrhythmias Mixed hyperlipidemia PAC (premature atrial contraction) Supraventricular premature beats Paroxysmal atrial fibrillation (HCC-CMS) Atrial fibrillation Current use of intermediate designer anticoagulation Long-term (current) use of anticoagulants Shortness of breath Lightheadedness Dizziness and giddiness Atrial tachycardia (HCC-CMS) Other specified cardiac dysrhythmias Paroxysmal atrial fibrillation (HCC-CMS) Atrial fibrillation Shortness of breath documented in this encounter Historical Medications * This list may reflect changes made after this encounter. traMADol (ULTRAM) 50 mg tablet Take 1 Tablet by mouth every 6 hours as needed for Pain. 10/27/2023 norethindrone (AYGESTIN) 5 mg tablet Take 1 Tablet by mouth 2 times daily. 11/08/2023 08/09/2024 propRANolol (INDERAL) 10 mg tablet Take 1 Tablet by mouth 2 times daily. 10/23/2023 08/09/2024 added in this encounter Care Teams Embedded Firmware Engineer Relationship Specialty Start Date End Date Dorita Zimmerman NP [address] [place] [phone] PCP - General 12/25/20 Hillary Tobin MD [address] [place] [phone] Cardiovascular Disease 04/03/22 documented as of this encounter
--- OUTSIDE RECORDS SUMMARY | 2024-10-20 17:17 | XMS_ITS | Encounter Summary ---
Author Organization [facility] Address [address] [place] [address] Care Team Providers Care Hospital Wellness Coordinator Name Role Phone Dorita Zimmerman Yajaira MASTER OF CEREMONIES Primary Care Provider [phone] Reason for Visit * Reason Onset Date Comments Medication Problem 10/30/2021 Encounter Details Date Type Department Care Team (Late st Contact Info) Description 10/30/2021 Telephone [facility] Cardiology Clinic [address] [place], [place] [phone] Hillary Tobin MD 130 [facility] [address] [place] [address] Medication Problem Social History Tobacco Use Types Packs/Day Years [...] Miscellaneous Notes * Telephone Encounter - Krystal Major, RN - 10/30/2021 1006 EST Spoke to patient who confirms she missed her dose of Diltiazem CD last night, instructions to take dose now and how to stagger the time in the next few days to get back on a daily HS scheduled. She verbalizes understanding. * Telephone Encounter - Angus Andersen - 10/30/2021 0968 EST Pt called, she forgot to take her Diltiazem last night. Should she take this now or just wait untiltonight to take the medication? documented in this encounter Plan of Treatment Upcoming Encounters Date Type Department Care Team (Late st Contact Info) Description 02/14/2025 14:30 EDT Office Visit [facility] Cardiology Clinic [address] [place] [address] Hillary Tobin MD 130 [facility] [address] [place] [phone] documented as of this encounter Visit Diagnoses Not on filedocumented in this encounter Care Teams Hospital Wellness Coordinator Relationship Specialty Start Date End Date Dorita Zimmerman NP [address] [place] [address] PCP - General 12/25/20 documented as of this encounter
--- OUTSIDE RECORDS SUMMARY | 2024-10-20 17:17 | XMS_ITS | Encounter Summary ---
Author Organization [facility] Address [address] [place] [address] Care Team Providers Care Exercise Rider Name Role Phone Dorita Zimmerman Yajaira SOLORZANO Primary Care Provider [phone] Hillary Tobin MD Unavailable [phone] Encounter Details Date Type Department Care Team (Late st Contact Info) Description 05/01/2023 Lab Requisition [facility] Pathology & Laboratory Medicine - [facility] [address] [place] [address] Susan Rosario [address] [place] [address] [place] [address] Encounter for other general examination [...] Info) Description 02/14/2025 14:30 EDT Office Visit [facility] Cardiology Clinic [address] [place] [address] Hillary Tobin MD 130 [facility] [address] [place] [address] documented as of this encounter Procedures Procedure Name Priority Date/Time Associated Diagnosis Comments SURGICAL PATHOLOGY Today 04/30/2023 14 :30 EDT Encounter for other general examination documented in this encounter Results * SURGICAL PATHOLOGY (04/30/2023 14:30 EDT) Note to Patient The following pathology results have been interpreted by your pathologist and may be available to you before your health provider has had the opportunity to review them. Please allow time for your provider to receive these results and explore management options, if applicable. 05/06/2023 16:25 EDT [facility] Final Diagnosis A. ENDOCERVIX, CURETTAGE: - Benign endocervical and squamous mucosa. B. ENDOMETRIUM, CURETTAGE: - Polypoid fragments of inactive to weakly secretory endometrium with pseudodecidualized stroma consistent with exogenous hormone effect. - Features suggestive of endometrial polyp. - Benign endocervical mucosa. 05/06/2023 16:25 EDT [facility] Attestation By the signature below, the attending physician certifies that they have 1) personally conducted a gross and/or microscopic examination of the described specimen(s), and/or personally interpreted the results of laboratory testing of the described specimen(s), and 2) personally rendered or confirmed the above diagnosis. 05/06/2023 16:25 [facility] at 1625 Clinical History Endometriosis, postmenopausal bleeding 05/06/2023 16:25 EDT [facility] Gross Description A. Received in formalin labelled with proper patient identification (initials W, R) and endocervical curettage is an aggregate of zapata to brown thick opaque mucus (1.7 x 1.3 x 0.3 cm). Submitted entirely in A1. B. Received in formalin labelled with proper patient identification (initials W, R) and endometrial curettage is an aggregate of zapata to dark brown rubbery soft tissue admixed with zapata-brown thick opaque mucus (3.1 x 2.3 x 0.4 cm). The specimen is submitted entirely in B1-B3. ADRIANA NANCE(ASCP) 05/01/2023 11:49 05/06/2023 16:25 EDT [facility] Performing Lab [facility] 05/06/2023 16:25 EDT [facility] Scanned Images 05/06/2023 16:25 EDT [facility] Tissue ENTIRE ENDOMETRIUM / Unknown 04/30/2023 14:30 EDT 05/01/2023 9:50 EDT Tissue specimen (specimen) ENDOMETRIAL STRUCTURE / Unknown 04/30/2023 14:30 EDT 05/01/2023 9:50 EDT Susan Rosario PATHOLOGY ORDERABLES Final Resul t Performing Organization Address City/State/[facility] Co de Phone Number [facility] [address] [place] [address] documented in this encounter Visit Diagnoses Diagnosis Encounter for other general examination documented in this encounter Care Teams Exercise Rider Relationship Specialty Start Date End Date Dorita Zimmerman NP [address] [place] [address] PCP - General 12/25/20 Hillary Tobin MD [address] [place] [address] [address] [place] [address] Cardiovascular Disease 04/03/22 documented as of this encounter
--- OUTSIDE RECORDS SUMMARY | 2024-10-20 17:18 | XMS_ITS | Encounter Summary ---
Author Organization [facility] Address [address] [place] [address] Care Team Providers Care Valet Attendant Name Role Phone Unavailable Primary Care Provider Unavailabl e Encounter Details Date Type Department Care Team (Late st Contact Info) Description 05/26/2001 Results Only [facility] [address] [place] [address] Eladia Solis, JEANINE [address] [place] [address] Social History Tobacco Use Types Packs/Day Years [...] Description 02/14/2025 14:30 EDT Office Visit [facility] Cardiology Clinic [address] [place] [address] Hillary Tobin MD [address] [facility] [address] [place] [address] documented as of this encounter Procedures Procedure Name Priority Date/Time Associated Diagnosis Comments CYTOPATHOLOGY Routine 05/26/2001 0:00 EDT documented in this encounter Results * CYTOPATHOLOGY (05/26/2001 0:00 EDT) Pathology Report: CYTOPATHOLOGY REPORT Reports generated via electronic interface contain original data; however they are lacking the format of the original report. Caution should be taken when reading/interpreti ng unformatted reports. Name: ? KATINA BRUNO ? Accession #: ? [id number] : ? 1950 (Age: 51) ??F ?Collect Date: ? 05/26/2001 Location: ? [facility] ? Receive Date: ? 06/01/2001 Provider: ?ELADIA SOLIS MACHINIST APPRENTICE WOOD Copy to: ? Specimen/Source: ?ThinPrep Pap Test, Cervix/Endocervix Last Menstrual Period: ? 04/07/01 ? SPECIMEN ADEQUACY ? Satisfactory for evaluation. GENERAL CATEGORIZATION ? Within Normal Limits ? Document reviewed and electronically signed by: ? NICK Hough(ASCP) ? Report Date: ??06/02/2001 13:48 End of Report ANDRE[facility] POLLARD 05/26/2001 06/01/2001 us Eladia Solis NP PATHOLOGY ORDERABLES Final Result [facility] POLLARD [address] [place] [address] documented in this encounter Visit Diagnoses Not on filedocumented in this encounter
--- OUTSIDE RECORDS SUMMARY | 2024-10-20 17:18 | XMS_ITS | Encounter Summary ---
Author Organization [facility] Address [address] [place] [address] Care Team Providers Care Generation Mechanic Helper Name Role Phone Unavailable Primary Care Provider Unavailabl e Encounter Details Date Type Department Care Team (Late st Contact Info) Description 03/30/2003 Results Only [facility] - [facility] [address] [place] [address] Eladia Chicas MD [address] [place] [address] [place] [address] Social History Tobacco Use Types Packs/Day Years [...] Info) Description 02/14/2025 14:30 EDT Office Visit [facility] Cardiology Clinic [address] [place] [address] Hillary Tobin MD 130 [facility] [address] [place] [address] documented as of this encounter Procedures Procedure Name Priority Date/Time Associated Diagnosis Comments CYTOPATHOLOGY Routine 03/30/2003 0:00 EDT documented in this encounter Results * CYTOPATHOLOGY (03/30/2003 0:00 EDT) Pathology Report: CYTOPATHOLOGY REPORT Reports generated via electronic interface contain original data; however they are lacking the format of the original report. Caution should be taken when reading/interpreti ng unformatted reports. Name: ? KATINA BRUNO ? Accession #: ? [id number] : ? 1950 (Age: 53) ??F ?Collect Date: ? 03/30/2003 Location: ? [facility] ? Receive Date: ? 04/01/2003 Provider: ?ELADIA CHICAS MD Copy to: ? Specimen/Source: ?ThinPrep Pap Test, Cervix/Endocervix Last Menstrual Period: ? 07/26 Previous Gynecologic Pathology: ? ASC-US: 1998 ? SPECIMEN ADEQUACY ? Satisfactory for Evaluation - transformation zone component present GENERAL CATEGORIZATION ? Negative for Intraepithelial Lesion or Malignancy ? Document reviewed and electronically signed by: ? NICK Abdul(ASCP) ? Report Date: ??04/07/2003 12:40 End of Report ANDREA POLLARD 03/30/2003 04/01/2003 us Eladia Chicas MD PATHOLOGY ORDERABLES Final Resu lt ANDREA POLLARD [address] [place] [address] documented in this encounter Visit Diagnoses Not on filedocumented in this encounter
--- OUTSIDE RECORDS SUMMARY | 2024-10-20 17:18 | XMS_ITS | Clinical Summary ---
Author Organization [facility] Address [facility] [place] [address] Care Team Providers Care Dinkey Operator Slag Name Role Phone Leila Manjarrez Primary Care Provider [phone] Allergies Active Allergy Reactions Criticality Noted Date Comments Alendronate Sodium Nausea Only 03/04/2022 Contact Metal Agent 03/04/2022 Oxycodone-Acetaminoph en Other (See Comments) Medium 01/27/2019 Other reaction(s): hallucinations Medications Medication Sig Dispensed Refills Start Date End Date Status cholecalciferol (Vitamin D3) 1,000 unit tablet Take 1,000 Units by mouth Daily. 12/10/2020 Active dilTIAZem CD (Cardizem CD) 300 mg CD (ER) 24 hr casule Take 1 capsule by mouth daily. 03/03/2023 Active acetaminophen (Tylenol) 325 mg tablet Take 2 tablets by mouth every 6 hours as needed for Pain. 04/23/2024 Active amLODIPine (Norvasc) 5 mg tablet Take 1 tablet by mouth daily. 10/12/2024 Active diclofenac (Voltaren) 1 % Gel Apply 2 g topically 4 times daily as needed. 10/12/2024 Active ipratropium-albutero L (Duoneb) 0.5 mg-3 mg(2.5 mg base)/3 mL Solution for Nebulization Take 0.5 mg by nebulization every 4 hours. 10/12/2024 Active pantoprazole (Protonix) 40 mg Recon Soln Inject 10 mLs into the vein daily. 10/12/2024 Active traZODone (Desyrel) 50 mg tablet Take 1 tablet by mouth nightly. 10/12/2024 Active Active Problems Problem Noted Date Diagnosed Date Severe protein-calorie malnutrition 10/01/2024 Overview (10/01/2024): less than or equal to 50% of estimated energy requirement for greater than or equal to 5 days and greater than 2% weight loss in 1 week is consistent with Severe protein-calorie malnutrition in the setting of acute illness or injury (Mari main al, JPEN J Parenteral Enteral Nutr. 2012 March; 36(3): 273-83) Presence of Watchman left atrial appendage closu re device 09/16/2024 S/P craniotomy 09/16/2024 Overview (09/28/2024): Right sided, evacuation of intraparenchymal hemorrhage, Dr. 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 05/06/2024 Encounters Date Type Department Care Team Description 10/13/2024 Telephone Neurosurgery at [place] [phone] Val Connor PA 10/08/2024 Travel 10/06/2024 Orders Only Cardiology at [address] [phone] Duane Causey MD Presence of Watchman left atrial appendage closure device 10/04/2024 12:00 PM [place] [address] Dc Young MD 10/04/2024 11:30 AM EST - 10/04/2024 12:30 [place] [address] Jony Sampson MD PERCUTANEOUS GASTROSTOMY 09/30/2024 Notes [place] [address] Abimael Ashley MD 09/21/2024 1:17 PM EDT Anesthesia [place] [phone] Glen Gold MD 09/16/2024 5:49 PM EDT - 09/16/2024 8:35 PM EDT Surgery Main Operating Room [place] [phone] Sushila Espinal MD [email or web address] EVACUATION, INTRACEREBRAL (WRVU 28.09) 09/16/2024 5:22 PM EDT Anesthesia [place] [address] Faye Morrow MD Treide, Alexander P, CRNA 09/16/2024 1:26 PM EDT Anesthesia Event Roving [employer] Tender [place] [phone] Fitz Stone MD Marshall, Janice, CRNA 09/16/2024 12:30 PM EDT Laboratory [place] [address] Atrial fibrillation, unspecified type 09/16/2024 11:30 AM EDT - 09/16/2024 1:30 PM EDT Surgery [facility] [place] [phone] Duane Causey MD CARDIAC CATHETERIZATION 09/16/2024 10:06 AM EDT - 10/12/2024 1:50 PM EST Hospital Encounter Neuro Special Care Unit Level 3 Wing C at [place] [phone] Duane Causey MD Karpenko, Anna, MD Marcolini, Evadne G, MD Keegan, Joshua, MD Lukovits, Timothy G, MD Rojas-Soto, MD Carmen Morales Megan M, MD Atrial fibrillation, unspecified type; Presence of Watchman left atrial appendage closure device; Right-sided nontraumatic intracerebral hemorrhage, unspecified cerebral location; Severe protein-calorie malnutrition; S/P craniotomy Discharge Disposition: Intermediate Facility 09/16/2024 Travel 08/18/2024 8:30 AM EDT TH Visit (TeleHealth) Cardiology at [address] [phone] Timoteo Roa MD History of atrial fibrillation 08/02/2024 Orders Only Cardiology at [address] [phone] Duane Causey MD Atrial fibrillation, unspecified type 08/02/2024 Notes Only Cardiology at [address] [phone] Shraddha Pichardo RN 07/28/2024 3:40 PM EDT Office Visit Cardiology at [address] [phone] Duane Causey MD Atrial fibrillation, unspecified type 07/28/2024 Travel 07/22/2024 Cardiology Conference Cardiology at [address] [phone] Margie Meyer from Last 3 Months Immunizations Name Administration Dates Next Due Influenza Vaccine, Whole 11/11/2008 Social History Tobacco Use Types Packs/Day Years Used Date Smoking Tobacco: Former Cigarettes 2 30 1 973 - 2003 Smokeless Tobacco: Never Tobacco Cessation:Counseling Given: Not Answered Alcohol Use Standard Drinks/Week Comments Never 0 (1 standard drink = 0.6 oz pur e alcohol) [facility] [place] Utilities Answer Date Recorded In the past 12 months has th e electric, gas, oil, or water company threatened to shut off services in your home? No 09/17/2024 Overall Financial Resource Strain (CARDIA) Answe r Date Recorded How hard is it for you to pa y for the very basics like food, housing, medical care, and heating? Somewhat hard 03/03/2024 Hunger Vital Sign Answer Date Recorded Within the past 12 months, y ou worried that your food would run out before you got the money to buy more. Never true 09/17/20 Within the past 12 months, t he food you bought just didn't last and you didn't have money to get more. Never true 09/17/2024 PRAPARE - Transportation Answer Date Re corded In the past 12 months, has l ack of transportation kept you from medical appointments or from getting medications? No 08/25 In the past 12 months, has l ack of transportation kept you from meetings, work, or from getting things needed for daily living? No 09/17/2024 Housing Stability Vital Sign Answer Salvador e Recorded In the last 12 months, was t here a time when you were not able to pay the mortgage or rent on time? No 03/03/2024 In the last 12 months, how many places have you lived? 1 03/03/2024 In the last 12 months, was t here a time when you did not have a steady place to sleep or slept in a residential (including now)? No 03/03/2024 Housing Stability Vital Sign Answer Salvador e Recorded In the last 12 months, was t here a time when you were not able to pay the mortgage or rent on time? No 09/17/2024 In the past 12 months, how m any times have you moved where you were living? 0 09/17/2024 At any time in the past 12 m [facility], were you homeless or living in a residential (including now)? No 09/17/2024 IPV Inpatient Questions Answer Date Recorded Does Anyone Try to Keep You From Having Contact with Others or Doing Things Outside Your Home? no 09/17/2024 Feels Threatened by Someone no 08/25 Feels Unsafe at Home or Work/School no 09/17/2024 Physical Signs of Abuse Present no 09/17/2024 Sex and Gender Information Value Date Recorded Sex Assigned at Not on file Gender Identity Not on file Sexual Orientation Not on file Last Filed Vital Signs Vital Sign Reading Time Taken Comments Blood Pressure 117/54 10/12/2024 12:16 PM EST Pulse 98 10/08/2024 2:00 PM EST Temperature 36.5 ??C (97.7 ??F) 10/12/2024 12:[address] Respiratory Rate 20 10/12/2024 12:16 PM EST Oxygen Saturation 98% 10/12/2024 12:16 PM EST Inhaled Oxygen Concentration - - Weight 77.6 kg (171 lb) 10/11/2024 6:00 AM EST Height 152.4 cm (5') 09/21/2024 6:38 PM EDT Body Mass Index 33.4 09/21/2024 6:38 PM EDT Plan of Treatment Upcoming Encounters Date Type Department Care Team (Late st Contact Info) Description 11/04/2024 11:15 AM EST Appointment Non[place] [address] 11/10/2024 8:00 AM EST Office Visit Neurology at [place] [phone] Clarisse Duke APRN [facility] [place] [address] 11/15/2024 10:[address] Scan at [place] [phone] Karli Morales MD [facility] [place] [address] 11/15/2024 11:20 AM EST Office Visit Neurosurgery at [place] [phone] Marvin Kimball PA [facility] [place] [place] [address] 12/15/2024 4:40 PM EST TH Visit (TeleHealth) Cardiology at [place] [phone] Duane Causey MD [facility] [place] [address] Health Maintenance Due Date Last Done Comments CT Colonography 1952 Colonoscopy 1952 Colorectal Cancer Screening 1952 FIT DNA 1952 FIT 1952 Sigmoidoscopy (10 year) with FIT yearly 1952 Sigmoidoscopy 1952 Pneumoccocal Vaccine: 65+ (1 of 2 - PCV) 02/12/1958 Hepatitis C Screening 02/12/1970 Tetanus/Diphtheria/Pertussis Vaccines (1 - Tdap) 02/12/1971 Breast Cancer Share Decision Needed 1992 Breast Cancer screening 1992 Zoster vaccine (1 of 2) 02/12/2002 RSV Vaccine (1 - Risk 60-74 years 1-dose series) 2012 Bone Density Scan 02/12/2017 Covid-19 Vaccine (3 - 2023- season) 07/25/202404/2023, 04/16/2022 Influenza (Flu) vaccine (1 o f 1 - Influenza standard series) 07/25/2024 11/11/2008 Lipid Screening 09/17/2029 09/17/2024, 05/06/2024 Medical Devices Implanted Type Area Physical Therapy Attendant Device Identifier Shelf Expiration Date Model / Serial / Lot Graft Cranial Dural 4x5in Rectangle Bovine Duragen ([id number]) - [id number] Implanted:Qty : 1 on 09/16/2024 by Sushila Espinal MD at [facility] IMPLANTS Right: Brain [employer] - INTEGRA 04/23/2027 DP-1045 / / [id number] Graft Cranial Dural 4x5in Rectangle Bovine Duragen ([id number]) - [id number] Implanted:Qty : 1 on 09/16/2024 by Sushila Espinal MD at [facility] IMPLANTS Right: Brain [employer] - [employer] 02/21/2027 DP-1045 / / [id number] Cover Umair Hole Cranial 0.4x10mm Low Profile With Tab Ti ([id number]) - [id number] Implanted:Qty : 4 on 09/16/2024 by Sushila Espinal MD at [facility] IMPLANTS Right: Parietal [employer] - VINICIO 09/16/2024 [id number] / / Plate Cmf 0.6x63mm Box Shape 16 Hole Low Profile ([id number]) - [id number] Implanted:Qty : 1 on 09/16/2024 by Sushila Espinal MD at [facility] IMPLANTS Right: Parietal [employer] - [employer] 09/16/2024 [id number] / / Plate Cmf 0.4x12mm 2 Hole Low Profile Ti [employer] Iii ([id number]) - [id number] Implanted:Qty : 1 on 09/16/2024 by Sushila Espinal MD at [facility] IMPLANTS Right: Parietal [employer] - [employer] 09/16/2024 [id number] / / Screw Cmf 1.5x4mm Cranial Self Drilling Ti ([id number]) - [id number] Implanted:Qty : 16 on 09/16/2024 by Sushila Espinal MD at [facility] IMPLANTS Right: Cranial V[employer] [id number] / / Procedures Procedure Name Priority Date/Time Associated Diagnosis Comments POC, GLUCOSE Routine 10/12/2024 12:23 PM EST POC, GLUCOSE Routine 10/12/2024 11:03 AM EST XR SHOULDER LEFT Routine 10/12/2024 10:2 1 AM EST POC, GLUCOSE Routine 10/12/2024 9:10 AM EST POC, GLUCOSE Routine 10/12/2024 7:22 AM EST POC, GLUCOSE Routine 10/12/2024 2:02 AM EST PHOSPHORUS Routine 10/12/2024 12:04 AM EST MAGNESIUM Routine 10/12/2024 12:04 AM EST BASIC METABOLIC PANEL Routine 10/12/2024 12:04 AM EST CBC (WITH DIFF) Routine 10/12/2024 12:04 AM EST POC, GLUCOSE Routine 10/11/2024 8:22 PM EST RAPID COVID-19 PCR ([facility]/APD/NLH) Routine 10/11/2024 4:26 PM EST POC, GLUCOSE Routine 10/11/2024 4:01 PM EST POC, GLUCOSE Routine 10/11/2024 12:15 PM EST POC, GLUCOSE Routine 10/11/2024 7:30 AM EST POC, GLUCOSE Routine 10/11/2024 2:40 AM EST TSH CASCADE Routine 10/10/2024 11:50 PM EST PHOSPHORUS Routine 10/10/2024 11:50 PM EST MAGNESIUM Routine 10/10/2024 11:50 PM EST BASIC METABOLIC PANEL Routine 10/10/2024 11:50 PM EST CBC (WITH DIFF) Routine 10/10/2024 11:50 PM EST POC, GLUCOSE Routine 10/10/2024 8:37 PM EST POC, GLUCOSE Routine 10/10/2024 5:30 PM EST POC, GLUCOSE Routine 10/10/2024 12:30 PM EST POC, GLUCOSE Routine 10/10/2024 8:12 AM EST POC, GLUCOSE Routine 10/10/2024 3:57 AM EST PHOSPHORUS Routine 10/10/2024 12:44 AM EST MAGNESIUM Routine 10/10/2024 12:44 AM EST BASIC METABOLIC PANEL Routine 10/10/2024 12:44 AM EST CBC (WITH DIFF) Routine 10/10/2024 12:44 AM EST POC, GLUCOSE Routine 10/09/2024 8:07 PM EST POC, GLUCOSE Routine 10/09/2024 4:39 PM EST POC, GLUCOSE Routine 10/09/2024 11:37 AM EST URINALYSIS MICROSCOPIC WITH REFLEX TO CULTURE Routine 10/09/2024 10:43 AM EST URINALYSIS WITH REFLEX CULTURE Routine 10/09/2024 10:43 AM EST URINE CULTURE Routine 10/09/2024 10:43 AM EST POC, GLUCOSE Routine 10/09/2024 7:44 AM EST POC, GLUCOSE Routine 10/09/2024 1:06 AM EST PHOSPHORUS Routine 10/09/2024 12:59 AM EST MAGNESIUM Routine 10/09/2024 12:59 AM EST BASIC METABOLIC PANEL Routine 10/09/2024 12:59 AM EST CBC (WITH DIFF) Routine 10/09/2024 12:59 AM EST POC, GLUCOSE Routine 10/08/2024 8:35 PM EST POC, GLUCOSE Routine 10/08/2024 4:41 PM EST XR FLUORO BARIUM SWALLOW (MODIFIED/VIDEO SWALLOW PHARYNX) Routine 10/08/2024 4:10 PM EST POC, GLUCOSE Routine 10/08/2024 12:49 PM EST POC, GLUCOSE Routine 10/08/2024 8:26 AM EST POC, GLUCOSE Routine 10/08/2024 4:15 AM EST PHOSPHORUS Routine 10/08/2024 1:13 AM EST MAGNESIUM Routine 10/08/2024 1:13 AM EST BASIC METABOLIC PANEL Routine 10/08/2024 1:13 AM EST CBC (WITH DIFF) Routine 10/08/2024 1:13 AM EST POC, GLUCOSE Routine 10/08/2024 1:07 AM EST POC, GLUCOSE Routine 10/07/2024 8:55 PM EST POC, GLUCOSE Routine 10/07/2024 4:[address] HEAD WO CONTRAST (GENERIC) STAT 10/07/2024 3:25 PM EST POC, GLUCOSE Routine 10/07/2024 11:30 AM EST SCAN DOC: TELEMETRY STRIPS 10/07/2024 10:37 AM EST POC, GLUCOSE Routine 10/07/2024 8:42 AM EST POC, GLUCOSE Routine 10/07/2024 4:17 AM EST PHOSPHORUS Routine 10/07/2024 1:12 AM EST MAGNESIUM Routine 10/07/2024 1:12 AM EST BASIC METABOLIC PANEL Routine 10/07/2024 1:12 AM EST CBC (WITH DIFF) Routine 10/07/2024 1:12 AM EST POC, GLUCOSE Routine 10/07/2024 1:00 AM EST SCAN DOC: TELEMETRY STRIPS 10/06/2024 11:05 PM EST POC, GLUCOSE Routine 10/06/2024 8:40 PM EST POC, GLUCOSE Routine 10/06/2024 4:20 PM EST SCAN DOC: TELEMETRY STRIPS 10/06/2024 3:57 PM EST TROPONIN-T, HIGH SENSITIVITY 1 HOUR PERFORMABLE STAT 10/06/2024 12:41 PM EST POC, GLUCOSE Routine 10/06/2024 12:24 PM EST EKG 12-LEAD Routine 10/06/2024 11:36 AM EST TROPONIN-T, HIGH SENSITIVITY INITIAL PERFORMABLE STAT 10/06/2024 11:13 AM EST TROPONIN - SERIES STAT 10/06/2024 11: 13 AM EST XR CHEST ONE VIEW Routine 10/06/2024 10: 59 AM EST POC, GLUCOSE Routine 10/06/2024 8:42 AM EST POC, GLUCOSE Routine 10/06/2024 7:34 AM EST POC, GLUCOSE Routine 10/06/2024 4:33 AM EST POC, GLUCOSE Routine 10/06/2024 3:55 AM EST PHOSPHORUS Routine 10/06/2024 12:33 AM EST MAGNESIUM Routine 10/06/2024 12:33 AM EST BASIC METABOLIC PANEL Routine 10/06/2024 12:33 AM EST CBC (WITH DIFF) Routine 10/06/2024 12:33 AM EST POC, GLUCOSE Routine 10/06/2024 12:14 AM EST POC, GLUCOSE Routine 10/05/2024 8:33 PM EST SCAN DOC: TELEMETRY STRIPS 10/05/2024 7:11 PM EST POC, GLUCOSE Routine 10/05/2024 4:59 PM EST POC, GLUCOSE Routine 10/05/2024 12:40 PM EST SCAN DOC: TELEMETRY STRIPS 10/05/2024 11:28 AM EST SCAN DOC: TELEMETRY STRIPS 10/05/2024 11:20 AM EST POC, GLUCOSE Routine 10/05/2024 8:53 AM EST POC, GLUCOSE Routine 10/05/2024 4:11 AM EST SCAN DOC: TELEMETRY STRIPS 10/05/2024 1:47 AM EST SEDIMENTATION RATE Add-On 10/05/2024 12 :08 AM EST CRP, ACUTE INFLAMMATION Add-On 10/05/20 12:08 AM EST PHOSPHORUS Routine 10/05/2024 12:08 AM EST MAGNESIUM Routine 10/05/2024 12:08 AM EST BASIC METABOLIC PANEL Routine 10/05/2024 12:08 AM EST CBC (WITH DIFF) Routine 10/05/2024 12:08 AM EST POC, GLUCOSE Routine 10/04/2024 11:47 PM EST MRI BRAIN WWO CONTRAST (GENERIC) STAT 10/04/2024 10:30 PM EST POC, GLUCOSE Routine 10/04/2024 7:31 PM EST POC, GLUCOSE Routine 10/04/2024 4:53 PM EST SCAN DOC: TELEMETRY STRIPS 10/04/2024 1:14 PM EST IR G-TUBE PLACEMENT Routine 10/04/2024 1 :00 PM EST PERCUTANEOUS GASTROSTOMY 10/04/2024 12:00 PM EST R occipital hemorrhage, unable to swallow, NG tube currently placed, will need PEG for longer term nutrition SCAN DOC: TELEMETRY STRIPS 10/04/2024 10:16 AM EST POC, GLUCOSE Routine 10/04/2024 8:12 AM EST POC, GLUCOSE Routine 10/04/2024 3:[address] HEAD WO CONTRAST (GENERIC) Routine 10/04/2024 1:40 AM EST PHOSPHORUS Routine 10/04/2024 12:29 AM EST MAGNESIUM Routine 10/04/2024 12:29 AM EST BASIC METABOLIC PANEL Routine 10/04/2024 12:29 AM EST CBC (WITH DIFF) Routine 10/04/2024 12:29 AM EST POC, GLUCOSE Routine 10/04/2024 12:06 AM EST POC, GLUCOSE Routine 10/03/2024 7:47 PM EST POC, GLUCOSE Routine 10/03/2024 3:49 PM EST POC, GLUCOSE Routine 10/03/2024 11:24 AM EST POC, GLUCOSE Routine 10/03/2024 8:00 AM EST PHOSPHORUS Routine 10/03/2024 4:05 AM EST MAGNESIUM Routine 10/03/2024 4:05 AM EST BASIC METABOLIC PANEL Routine 10/03/2024 4:05 AM EST CBC (WITH DIFF) Routine 10/03/2024 4:05 AM EST POC, GLUCOSE Routine 10/03/2024 4:03 AM EST POC, GLUCOSE Routine 10/02/2024 11:39 PM EST POC, GLUCOSE Routine 10/02/2024 8:33 PM EST POC, GLUCOSE Routine 10/02/2024 4:08 PM EST POC, GLUCOSE Routine 10/02/2024 11:52 AM EST POC, GLUCOSE Routine 10/02/2024 8:27 AM EST POC, GLUCOSE Routine 10/02/2024 4:41 AM EST PHOSPHORUS Routine 10/02/2024 1:49 AM EST MAGNESIUM Routine 10/02/2024 1:49 AM EST BASIC METABOLIC PANEL Routine 10/02/2024 1:49 AM EST CBC (WITH DIFF) Routine 10/02/2024 1:49 AM EST POC, GLUCOSE Routine 10/02/2024 12:22 AM EST POC, GLUCOSE Routine 10/01/2024 7:44 PM EST SCAN DOC: TELEMETRY STRIPS 10/01/2024 5:16 PM EST POC, GLUCOSE Routine 10/01/2024 4:22 PM EST POC, GLUCOSE Routine 10/01/2024 12:02 PM EST POC, GLUCOSE Routine 10/01/2024 8:01 AM EST POC, GLUCOSE Routine 10/01/2024 3:39 AM EST PHOSPHORUS Routine 10/01/2024 12:21 AM EST MAGNESIUM Routine 10/01/2024 12:21 AM EST BASIC METABOLIC PANEL Routine 10/01/2024 12:21 AM EST CBC (WITH DIFF) Routine 10/01/2024 12:21 AM EST SCAN DOC: TELEMETRY STRIPS 09/30/2024 10:14 PM EST POC, GLUCOSE Routine 09/30/2024 8:15 PM EST POC, GLUCOSE Routine 09/30/2024 4:36 PM EST SCAN DOC: TELEMETRY STRIPS 09/30/2024 1:44 PM EST POC, GLUCOSE Routine 09/30/2024 11:53 AM EST POC, GLUCOSE Routine 09/30/2024 9:05 AM EST POC, GLUCOSE Routine 09/30/2024 4:53 AM EST PHOSPHORUS Routine 09/30/2024 1:44 AM EST MAGNESIUM Routine 09/30/2024 1:44 AM EST BASIC METABOLIC PANEL Routine 09/30/2024 1:44 AM EST CBC (WITH DIFF) Routine 09/30/2024 1:44 AM EST POC, GLUCOSE Routine 09/29/2024 11:37 PM EST SCAN DOC: TELEMETRY STRIPS 09/29/2024 10:23 PM EST POC, GLUCOSE Routine 09/29/2024 8:09 PM EST POC, GLUCOSE Routine 09/29/2024 6:14 PM EST XR CHEST ONE VIEW Routine 09/29/2024 1:1 3 PM EST POC, GLUCOSE Routine 09/29/2024 11:29 AM EST POC, GLUCOSE Routine 09/29/2024 8:37 AM EST POC, GLUCOSE Routine 09/29/2024 4:47 AM EST MAGNESIUM Routine 09/29/2024 1:09 AM EST CBC (WITH DIFF) Routine 09/29/2024 1:09 AM EST POC, GLUCOSE Routine 09/29/2024 12:53 AM EST SCAN DOC: TELEMETRY STRIPS 09/28/2024 11:32 PM EST POC, GLUCOSE Routine 09/28/2024 10:25 PM EST XR CHEST ONE VIEW STAT 09/28/2024 7:5 8 PM EST POC, GLUCOSE Routine 09/28/2024 7:50 PM EST POC, GLUCOSE Routine 09/28/2024 3:52 PM EST POC, GLUCOSE Routine 09/28/2024 12:19 PM EST SCAN DOC: TELEMETRY STRIPS 09/28/2024 10:58 AM EST POC, GLUCOSE Routine 09/28/2024 7:54 AM EST TROPONIN-T, HIGH SENSITIVITY 3 HOUR PERFORMABLE STAT 09/28/2024 6:37 AM EST TROPONIN-T, HIGH SENSITIVITY 1 HOUR PERFORMABLE STAT 09/28/2024 5:00 AM EST POC, GLUCOSE Routine 09/28/2024 4:16 AM EST XR CHEST ONE VIEW STAT 09/28/2024 4:0 6 AM EST EKG 12-LEAD Routine 09/28/2024 3:59 AM EST Atrial fibrillation, unspecified type EKG 12-LEAD STAT 09/28/2024 3:59 AM EST Atrial fibrillation, unspecified type SCAN, PERIPHERAL BLOOD Routine 3:58 AM EST TROPONIN-T, HIGH SENSITIVITY INITIAL PERFORMABLE STAT 09/28/2024 3:58 AM EST TROPONIN - SERIES STAT 09/28/2024 3:5 8 AM EST CBC (WITH DIFF) Routine 09/28/2024 3:58 AM EST PHOSPHORUS Routine 09/28/2024 3:58 AM EST MAGNESIUM Routine 09/28/2024 3:58 AM EST BASIC METABOLIC PANEL Routine 09/28/2024 3:58 AM EST POC, GLUCOSE Routine 09/27/2024 11:39 PM EST POC, GLUCOSE Routine 09/27/2024 7:52 PM EST POTASSIUM Routine 09/27/2024 4:46 PM EST POC, GLUCOSE Routine 09/27/2024 4:38 PM EST POC, GLUCOSE Routine 09/27/2024 12:53 PM EST C DIFF SCREEN PERFORMABLE STAT 09/27/2024 8:46 AM EST C DIFF PCR STAT 09/27/2024 8:46 AM EST C. DIFFICILE SCREEN STAT 09/27/2024 8 :46 AM EST POC, GLUCOSE Routine 09/27/2024 8:24 AM EST POC, GLUCOSE Routine 09/27/2024 3:40 AM EST MAGNESIUM Routine 09/27/2024 1:38 AM EST BASIC METABOLIC PANEL Routine 09/27/2024 1:38 AM EST CBC (WITH DIFF) Routine 09/27/2024 1:38 AM EST PHOSPHORUS Routine 09/27/2024 1:38 AM EST POC, GLUCOSE Routine 09/26/2024 11:30 PM EST SCAN DOC: TELEMETRY STRIPS 09/26/2024 10:40 PM EST POC, GLUCOSE Routine 09/26/2024 7:27 PM EST EXTUBATE Routine 09/26/2024 3:30 PM EST POC, GLUCOSE Routine 09/26/2024 3:12 PM EST BLOOD CULTURE STAT 09/26/2024 2:53 PM EST BLOOD CULTURE STAT 09/26/2024 2:[address] ABDOMEN AND PELVIS W CONTRAST STAT 09/26/2024 1:[address] HEAD WO CONTRAST (GENERIC) STAT 09/26/2024 1:[address] CHEST PULMONARY EMBOLISM W CONTRAST STAT 09/26/2024 1:37 PM EST POTASSIUM Routine 09/26/2024 12:16 PM EST POC, GLUCOSE Routine 09/26/2024 11:27 AM EST SCAN DOC: TELEMETRY STRIPS 09/26/2024 10:59 AM EST POC, GLUCOSE Routine 09/26/2024 7:52 AM EST CK Add-On 09/26/2024 6:35 AM EST PROLACTIN Routine 09/26/2024 6:35 AM EST HEPATIC FUNCTION PANEL Routine 6:35 AM EST BASIC METABOLIC PANEL Routine 09/26/2024 6:35 AM EST PHOSPHORUS Routine 09/26/2024 6:35 AM EST POC, GLUCOSE Routine 09/26/2024 3:23 AM EST LACTATE, WHOLE BLOOD Routine 09/26/2024 12:31 AM EDT MAGNESIUM Routine 09/26/2024 12:31 AM EDT CBC (WITH DIFF) Routine 09/26/2024 12:31 AM EDT BASIC METABOLIC PANEL Routine 09/26/2024 12:31 AM EDT PHOSPHORUS Routine 09/26/2024 12:31 AM EDT POC, GLUCOSE Routine 09/26/2024 12:06 AM EDT POC, GLUCOSE Routine 09/25/2024 7:41 PM EDT SCAN DOC: TELEMETRY STRIPS 09/25/2024 7:28 PM EDT POC, GLUCOSE Routine 09/25/2024 4:01 PM EDT POC, GLUCOSE Routine 09/25/2024 11:59 AM EDT SCAN DOC: TELEMETRY STRIPS 09/25/2024 9:52 AM EDT POC, GLUCOSE Routine 09/25/2024 7:46 AM EDT MAGNESIUM Routine 09/25/2024 4:29 AM EDT BASIC METABOLIC PANEL Routine 09/25/2024 4:29 AM EDT CBC (WITH DIFF) Routine 09/25/2024 4:29 AM EDT PHOSPHORUS Routine 09/25/2024 4:29 AM EDT POC, GLUCOSE Routine 09/25/2024 3:46 AM EDT POC, GLUCOSE Routine 09/24/2024 11:50 PM EDT POC, GLUCOSE Routine 09/24/2024 7:50 PM EDT SCAN DOC: TELEMETRY STRIPS 09/24/2024 7:47 PM EDT POC, GLUCOSE Routine 09/24/2024 3:18 PM EDT SCAN DOC: TELEMETRY STRIPS 09/24/2024 12:04 PM EDT POC, GLUCOSE Routine 09/24/2024 11:16 AM EDT POC, GLUCOSE Routine 09/24/2024 7:39 AM EDT SCAN, PERIPHERAL BLOOD Routine 5:00 AM EDT MAGNESIUM Routine 09/24/2024 5:00 AM EDT BASIC METABOLIC PANEL Routine 09/24/2024 5:00 AM EDT CBC (WITH DIFF) Routine 09/24/2024 5:00 AM EDT PHOSPHORUS Routine 09/24/2024 5:00 AM EDT POC, GLUCOSE Routine 09/24/2024 4:05 AM EDT SCAN DOC: TELEMETRY STRIPS 09/24/2024 12:45 AM EDT POC, GLUCOSE Routine 09/23/2024 11:57 PM EDT POC, GLUCOSE Routine 09/23/2024 7:59 PM EDT POTASSIUM Routine 09/23/2024 4:23 PM EDT POC, GLUCOSE Routine 09/23/2024 3:53 PM EDT POC, GLUCOSE Routine 09/23/2024 11:30 AM EDT URINALYSIS BEAKER MICROSCOPIC ([facility]) STAT 09/23/2024 10:29 AM EDT URINALYSIS MICROSCOPIC EXAM STAT 09/23/2024 10:29 AM EDT URINALYSIS DIPSTICK STAT 09/23/2024 1 0:29 AM EDT _URINALYSIS WITH MICRSOCOPIC STAT 09/23/2024 10:29 AM EDT RESPIRATORY CULTURE, QUANTITATIVE STAT 09/23/2024 10:26 AM EDT MINI BRONCHIAL ALVEOLAR [facility] (MIN-BAL) Routine 09/23/2024 10:24 AM EDT SCAN DOC: TELEMETRY STRIPS 09/23/2024 8:18 AM EDT HEPATIC FUNCTION PANEL Add-On 7:56 AM EDT POTASSIUM Routine 09/23/2024 7:56 AM EDT POC, GLUCOSE Routine 09/23/2024 7:41 AM EDT POC, GLUCOSE Routine 09/23/2024 7:15 AM EDT SCAN DOC: TELEMETRY STRIPS 09/23/2024 4:14 AM EDT SCAN DOC: TELEMETRY STRIPS 09/23/2024 4:12 AM EDT SCAN DOC: TELEMETRY STRIPS 09/23/2024 4:12 AM EDT POC, GLUCOSE Routine 09/23/2024 4:11 AM EDT SCAN DOC: TELEMETRY STRIPS 09/23/2024 4:09 AM EDT SCAN DOC: TELEMETRY STRIPS 09/23/2024 3:59 AM EDT SCAN DOC: TELEMETRY STRIPS 09/23/2024 3:54 AM EDT PHOSPHORUS Routine 09/23/2024 1:01 AM EDT MAGNESIUM Routine 09/23/2024 1:01 AM EDT BASIC METABOLIC PANEL Routine 09/23/2024 1:01 AM EDT CBC (WITH DIFF) Routine 09/23/2024 1:01 AM EDT POC, GLUCOSE Routine 09/23/2024 12:47 AM EDT POC, GLUCOSE Routine 09/22/2024 11:40 PM EDT SCAN DOC: TELEMETRY STRIPS 09/22/2024 9:37 PM EDT POC, GLUCOSE Routine 09/22/2024 9:02 PM EDT POC, GLUCOSE Routine 09/22/2024 7:38 PM EDT SCAN DOC: TELEMETRY STRIPS 09/22/2024 4:23 PM EDT POC, GLUCOSE Routine 09/22/2024 3:52 PM EDT POC, GLUCOSE Routine 09/22/2024 11:56 AM EDT MRSA PCR SCREEN Routine 09/22/2024 11:43 AM EDT SCAN DOC: TELEMETRY STRIPS 09/22/2024 8:00 AM EDT POC, GLUCOSE Routine 09/22/2024 7:52 AM EDT SCAN DOC: TELEMETRY STRIPS 09/22/2024 6:18 AM EDT POC, GLUCOSE Routine 09/22/2024 4:[address] HEAD WO CONTRAST (GENERIC) Routine 09/22/2024 4:02 AM EDT PHOSPHORUS Routine 09/22/2024 1:26 AM EDT MAGNESIUM Routine 09/22/2024 1:26 AM EDT BASIC METABOLIC PANEL Routine 09/22/2024 1:26 AM EDT CBC (WITH DIFF) Routine 09/22/2024 1:26 AM EDT POC, GLUCOSE Routine 09/21/2024 11:37 PM EDT POC, GLUCOSE Routine 09/21/2024 7:52 PM EDT POC, GLUCOSE Routine 09/21/2024 4:03 PM EDT XR CHEST ONE VIEW Routine 09/21/2024 2:0 1 PM EDT XR ABDOMEN 1 VIEW Routine 09/21/2024 2:0 1 PM EDT ENDOTRACHEAL TUBE POSITION CHANGE Routine 09/21/2024 1:58 PM EDT INTUBATION - ANES ONLY Routine 1:00 PM EDT INTUBATION Routine 09/21/2024 12:55 PM EDT EXTUBATE Routine 09/21/2024 11:37 AM EDT POC, GLUCOSE Routine 09/21/2024 11:13 AM EDT POC, GLUCOSE Routine 09/21/2024 7:46 AM EDT SCAN DOC: TELEMETRY STRIPS 09/21/2024 7:39 AM EDT POC, GLUCOSE Routine 09/21/2024 7:26 AM EDT POC, GLUCOSE Routine 09/21/2024 4:[address] HEAD WO CONTRAST (GENERIC) Routine 09/21/2024 3:50 AM EDT PHOSPHORUS Routine 09/21/2024 12:21 AM EDT MAGNESIUM Routine 09/21/2024 12:21 AM EDT BASIC METABOLIC PANEL Routine 09/21/2024 12:21 AM EDT CBC (WITH DIFF) Routine 09/21/2024 12:21 AM EDT POC, GLUCOSE Routine 09/21/2024 12:20 AM EDT POC, GLUCOSE Routine 09/20/2024 9:46 PM EDT SCAN DOC: TELEMETRY STRIPS 09/20/2024 8:33 PM EDT POC, GLUCOSE Routine 09/20/2024 3:57 PM EDT POC, GLUCOSE Routine 09/20/2024 11:55 AM EDT DUPLEX FOR DVT BILAT LEGS Routine 09/20/2024 11:29 AM EDT Right-sided nontraumatic intracerebral hemorrhage, unspecified cerebral location SCAN DOC: TELEMETRY STRIPS 09/20/2024 11:15 AM EDT POC, GLUCOSE Routine 09/20/2024 9:50 AM EDT POC, GLUCOSE Routine 09/20/2024 7:53 AM EDT POC, GLUCOSE Routine 09/20/2024 3:53 AM EDT POC, GLUCOSE Routine 09/20/2024 12:09 AM EDT TRIGLYCERIDE Routine 09/20/2024 12:09 AM EDT PHOSPHORUS Routine 09/20/2024 12:09 AM EDT MAGNESIUM Routine 09/20/2024 12:09 AM EDT BASIC METABOLIC PANEL Routine 09/20/2024 12:09 AM EDT CBC (WITH DIFF) Routine 09/20/2024 12:09 AM EDT POC, GLUCOSE Routine 09/19/2024 7:36 PM EDT SCAN DOC: TELEMETRY STRIPS 09/19/2024 6:36 PM EDT MRI BRAIN WWO CONTRAST (GENERIC) Routine 09/19/2024 5:43 PM EDT POC, GLUCOSE Routine 09/19/2024 3:30 PM EDT POC, GLUCOSE Routine 09/19/2024 12:34 PM EDT POC, GLUCOSE Routine 09/19/2024 7:35 AM EDT POC, GLUCOSE Routine 09/19/2024 4:23 AM EDT SCAN DOC: TELEMETRY STRIPS 09/19/2024 2:50 AM EDT POC, GLUCOSE Routine 09/19/2024 1:00 AM EDT PHOSPHORUS Routine 09/19/2024 12:55 AM EDT MAGNESIUM Routine 09/19/2024 12:55 AM EDT BASIC METABOLIC PANEL Routine 09/19/2024 12:55 AM EDT CBC (WITH DIFF) Routine 09/19/2024 12:55 AM EDT POC, GLUCOSE Routine 09/18/2024 8:13 PM EDT SCAN DOC: TELEMETRY STRIPS 09/18/2024 5:45 PM EDT POC, GLUCOSE Routine 09/18/2024 4:26 PM EDT LOWER RESPIRATORY CULTURE Routine 09/18/2024 2:44 PM EDT BLOOD CULTURE Routine 09/18/2024 12:47 PM EDT BLOOD CULTURE Routine 09/18/2024 12:47 PM EDT XR ABDOMEN 1 VIEW Routine 09/18/2024 12: 31 PM EDT POC, GLUCOSE Routine 09/18/2024 12:10 PM EDT XR CHEST ONE VIEW Routine 09/18/2024 8:4 3 AM EDT POC, GLUCOSE Routine 09/18/2024 7:47 AM EDT SODIUM Add-On 09/18/2024 6:15 AM EDT POTASSIUM Routine 09/18/2024 6:15 AM EDT HC PARTIAL THROMBOPLASTIN TIME Routine 09/18/2024 6:15 AM EDT PROTHROMBIN TIME Routine 09/18/2024 6:15 AM EDT POC, GLUCOSE Routine 09/18/2024 4:37 AM EDT SCAN, PERIPHERAL BLOOD Routine 12:20 AM EDT PHOSPHORUS Routine 09/18/2024 12:20 AM EDT MAGNESIUM Routine 09/18/2024 12:20 AM EDT BASIC METABOLIC PANEL Routine 09/18/2024 12:20 AM EDT CBC (WITH DIFF) Routine 09/18/2024 12:20 AM EDT HC PARTIAL THROMBOPLASTIN TIME Routine 09/18/2024 12:20 AM EDT PROTHROMBIN TIME Routine 09/18/2024 12:2 0 AM EDT POC, GLUCOSE Routine 09/17/2024 11:45 PM EDT SCAN DOC: TELEMETRY STRIPS 09/17/2024 11:25 PM EDT POC, GLUCOSE Routine 09/17/2024 8:34 PM EDT SCAN DOC: TELEMETRY STRIPS 09/17/2024 5:47 PM EDT HC PARTIAL THROMBOPLASTIN TIME Routine 09/17/2024 5:23 PM EDT PROTHROMBIN TIME Routine 09/17/2024 5:23 PM EDT POC, GLUCOSE Routine 09/17/2024 4:19 PM EDT XR CHEST ONE VIEW STAT 09/17/2024 2:1 3 PM EDT CENTRAL LINE Routine 09/17/2024 1:23 PM EDT HC PARTIAL THROMBOPLASTIN TIME Routine 09/17/2024 12:36 PM EDT PROTHROMBIN TIME Routine 09/17/2024 12:3 6 PM EDT POC, GLUCOSE Routine 09/17/2024 11:26 AM EDT ECHO LMTD W CONTRAST W LMTD SPEC DOPP COLOR DOPP Routine 09/17/2024 8:18 AM EDT Atrial fibrillation, unspecified type Presence of Watchman left atrial appendage closure device POC, GLUCOSE Routine 09/17/2024 7:57 AM EDT HC PARTIAL THROMBOPLASTIN TIME Routine 09/17/2024 6:18 AM EDT PROTHROMBIN TIME Routine 09/17/2024 6:18 AM EDT HC TR PSLD PLT, PHERESIS, IRR STAT 09/17/2024 6:07 AM EDT Atrial fibrillation, unspecified type CT HEAD WO CONTRAST (GENERIC) Routine 09/17/2024 4:51 AM EDT POC, GLUCOSE Routine 09/17/2024 3:16 AM EDT SCAN DOC: TELEMETRY STRIPS 09/17/2024 2:06 AM EDT SCAN, PERIPHERAL BLOOD Routine 12:39 AM EDT OSMOLALITY Add-On 09/17/2024 12:39 AM EDT HC PARTIAL THROMBOPLASTIN TIME Routine 09/17/2024 12:39 AM EDT PROTHROMBIN TIME Routine 09/17/2024 12:3 9 AM EDT GLUCOSE Routine 09/17/2024 12:39 AM EDT TRIGLYCERIDE Routine 09/17/2024 12:39 AM EDT HDL/CHOL PROFILE Routine 09/17/2024 12:3 9 AM EDT LDL CHOLESTEROL, DIRECT Routine 09/17/20 12:39 AM EDT HEMOGLOBIN A1C Routine 09/17/2024 12:39 AM EDT PHOSPHORUS Routine 09/17/2024 12:39 AM EDT BASIC METABOLIC PANEL Routine 09/17/2024 12:39 AM EDT MAGNESIUM Routine 09/17/2024 12:39 AM EDT CBC (WITH DIFF) Routine 09/17/2024 12:[address] VENOGRAM BRAIN Routine 09/16/2024 11: [address] HEAD WO CONTRAST (GENERIC) Routine 09/16/2024 11:21 PM EDT XR ABDOMEN 1 VIEW Routine 09/16/2024 11: 00 PM EDT XR CHEST ONE VIEW STAT 09/16/2024 11: 00 PM EDT PREPARE RBC STAT 09/16/2024 10:50 PM EDT Atrial fibrillation, unspecified type POC, GLUCOSE Routine 09/16/2024 10:05 PM EDT CRANI-HEMATOMA EVACUATION, INTRACEREBRAL Routine 09/16/2024 8:53 PM EDT ULTRASOUND USE Routine 09/16/2024 8:52 PM EDT BLOOD GAS ARTERIAL POC Routine 8:22 PM EDT SURGICAL PATHOLOGY Routine 09/16/2024 7: 20 PM EDT BLOOD GAS ARTERIAL POC Routine 6:23 PM EDT BLOOD GAS ARTERIAL POC Routine 5:49 PM EDT Us, Head, Real Time ([id number]) 09/16/2024 5:28 PM EDT R [facility] Open Skull Evac Intracerebr Blood ([id number]) 09/16/2024 5:28 PM EDT R [facility] CT HEAD WO CONTRAST (GENERIC) Routine 09/16/2024 5:26 PM EDT TRIGLYCERIDE Add-On 09/16/2024 5:07 PM EDT GREEN TUBE HOLD Routine 09/16/2024 5:07 PM EDT EXTRA TUBES Routine 09/16/2024 5:07 PM EDT HC PARTIAL THROMBOPLASTIN TIME STAT 09/16/2024 5:07 PM EDT PROTHROMBIN TIME STAT 09/16/2024 5:07 PM EDT CBC (WITH DIFF) STAT 09/16/2024 5:07 PM EDT EKG 12-LEAD Routine 09/16/2024 3:33 PM EDT Atrial fibrillation, unspecified type CARDIAC CATHETERIZATION Routine 09/16/20 3:16 PM EDT Atrial fibrillation, unspecified type MONICA W LMTD SPECTRAL DOPPLER COLOR DOPPLER Routine 09/16/2024 3:03 PM EDT Atrial fibrillation, unspecified type TRANSESOPHAGEAL ECHO DURING CATH/EP PROCEDURE 09/16/2024 1:26 PM EDT Atrial fibrillation, unspecified type EKG 12-LEAD Routine 09/16/2024 1:08 PM EDT ABORH RECHECK (PATIENT HISTORY FOUND) Routine 09/16/2024 10:29 AM EDT Atrial fibrillation, unspecified type TYPE AND SCREEN, SDP (FUTURE SURGERY, [facility] SAME DAY PROGRAM ONLY) Routine 09/16/2024 10:29 AM EDT Atrial fibrillation, unspecified type BASIC METABOLIC PANEL Routine 09/16/2024 10:29 AM EDT Atrial fibrillation, unspecified type CBC (WITH DIFF) Routine 09/16/2024 10:29 AM EDT Atrial fibrillation, unspecified type IMPLANTABLE DEVICES SCAN 09/16/2024 12:00 AM EDT PERQ TRANSCATH CLOSURE LEFT ATRIAL APPENDAGE W ENDOCARD IMPLANT Routine 08/03/2024 12:40 PM EDT Atrial fibrillation, unspecified type from Last 3 Months Results * POC, GLUCOSE (10/12/2024 12:23 PM EST) Only the most recent of158 resultswithin the time period is included. [employer] Glucometer, POC 157 65 - 199 mg/dL 10/12/2024 12:23 PM EST [facility] Comment:Supplemental ranges: <140 mg/dL before meals <180 mg/dL all other times of the day. 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 Thank you for letting us participate in the care of this patient. ??If you are a health care provider and have any questions regarding this report, please contact the number below. ??For patients who have questions please contact the health insurance healthcare representative that requested your imaging first. ? Narrative 10/12/2024 3:39 PM EST EXAMINATION: XR SHOULDER LEFT (GENERIC) CLINICAL HISTORY: L shoulder pain TECHNIQUE: AP, Grashey, scapular Y and axillary of the left shoulder COMPARISON: None FINDINGS: The humerus is subluxed in the inferior direction. No fracture is seen. 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 Procedure Note Sammy Story MD - 10/12/2024 EXAMINATION: XR SHOULDER LEFT (GENERIC) CLINICAL HISTORY: L shoulder pain TECHNIQUE: AP, Grashey, scapular Y and axillary of the left shoulder COMPARISON: None FINDINGS: The humerus is subluxed in the inferior direction. No fracture is seen. 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 Thank you for letting us participate in the care of this patient. If youare a health care provider and have any questions regarding this report,please contact the number below. For patients who have questions please contactthe health insurance healthcare representative that requested your imaging first. Karli Morales MD IMG DX ORDERABLES * (ABNORMAL) CBC (with Diff) (10/12/2024 12:04 AM EST) Only the most recent of28 resultswithin the time period is included. White Blood Cell 9.08 4.00 - 9.50 x10(3)/mc L 10/12/2024 12:27 AM [facility] Red Blood Cell 3.61(L) 4.00 - 5.21 x10(6)/mc L 10/12/2024 12:27 AM [facility] Hemoglobin 10.9(L) 11.7 - 15.5 g/dL 10/12/2024 12:27 AM [facility] Hematocrit 33.7(L) 35.7 - 45.8 % 10/12/2024 12:27 AM [facility] Mean Cell Volume 93.4 82.6 - 94.4 fL 10/12/2024 12:27 AM [facility] Mean Cell Hemoglobin 30.2 27.1 - 32.0 pg 10/12/2024 12:27 AM [facility] Mean Cell Hemoglobin Concentration 32.3 31.7 - 35.0 g/dL 10/12/2024 12:27 AM [facility] Platelet 284 145 - 357 x10(3)/mc L 10/12/2024 12:27 AM [facility] Mean Platelet Volume 10.3 7.6 - 12.9 fL 10/12/2024 12:27 AM [facility] RDW Standard Deviation 49.2(H) 37.0 - 46.0 fL 10/12/2024 12:27 AM [facility] RDW coefficient of variation 14.5(H) 11.5 - 14.1 % 10/12/2024 12:27 AM [facility] NRBC% auto 0.0 % 10/12/2024 12:27 AM [facility] NRBC Absolute <0.01 <0.01 x10(3)/mc L 10/12/2024 12:27 AM [facility] Neutrophil % 66.0 % 10/12/2024 12:27 AM [facility] Neutrophil Absolute (ANC) - Automated 5.99 1.70 - 6.10 x10(3)/mc L 10/12/2024 12:27 AM [facility] Lymph % 20.2 % 10/12/2024 12:27 AM [facility] Lymph Absolute 1.83 0.90 - 3.20 x10(3)/mc L 10/12/2024 12:27 AM [facility] Monocyte % 8.1 % 10/12/2024 12:27 AM [facility] Monocyte Absolute 0.74 0.30 - 0.90 x10(3)/mc L 10/12/2024 12:27 AM [facility] Eos % 4.0 % 10/12/2024 12:27 AM [facility] Eos Absolute 0.36 0.00 - 0.40 x10(3)/mc L 10/12/2024 12:27 AM [facility] Basophil % 0.2 % 10/12/2024 12:27 AM [facility] Baso Absolute <0.04 0.00 - 0.10 x10(3)/mc L 10/12/2024 12:27 AM [facility] Immature Gran % 1.5 % 12:27 AM [facility] Immature Gran Absolute 0.14(H) 0.00 - 0.04 x10(3)/mc L 10/12/2024 12:27 AM [facility] Blood VENOUS BLOOD SPECIMEN / Unknown Venipuncture / Unknown 10/12/2024 12:04 AM EST 10/12/2024 12:23 AM EST Librado Patel MD HEMATOLOGY ORDERABLE S [facility] [place] [address] * Phosphorus (10/12/2024 12:04 AM EST) Only the most recent of26 resultswithin the time period is included. Phosphorus 3.3 2.5 - 4.5 mg/dL 10/12/2024 12:52 AM EST [facility] Blood VENOUS BLOOD SPECIMEN / Unknown Venipuncture / Unknown 10/12/2024 12:04 AM EST 10/12/2024 12:23 AM EST Librado Patel MD CHEMISTRY ORDERABLES Performing Organization Address [facility] Co de Phone Number [facility] [place] [address] * Magnesium (10/12/2024 12:04 AM EST) Only the most recent of26 resultswithin the time period is included. Magnesium 0.74 0.69 - 1.07 mMol/L 10/12/2024 12:52 AM EST [facility] Blood VENOUS BLOOD SPECIMEN / Unknown Venipuncture / Unknown 10/12/2024 12:04 AM EST 10/12/2024 12:23 AM EST Librado Patel MD CHEMISTRY ORDERABLES Performing Organization Address City/[facility]/ZIP Co de Phone Number [facility] [place] [address] * (ABNORMAL) Basic Metabolic Panel (10/12/2024 12:04 AM EST) Only the most recent of27 resultswithin the time period is included. Glucose 154 65 - 199 mg/dL 10/12/2024 12:52 AM EST [facility] Comment:Glucose Concentratio n >=200 mg/dL plus symptoms is consistent with Diabetes Mellitus. Blood Urea Nitrogen 23(H) 8 - 18 mg/dL 10/12/2024 12:52 AM EST [facility] Creatinine 0.40(L) 0.70 - 1.20 mg/dL 10/12/2024 12:52 AM EST [facility] Sodium 141 135 - 145 mMol/L 10/12/2024 12:52 AM [facility] Potassium 3.9 3.5 - 5.0 mMol/L 10/12/2024 12:52 AM [facility] Chloride 104 98 - 107 mMol/L 10/12/2024 12:52 AM [facility] Carbon Dioxide 27 22 - 31 mMol/L 10/12/2024 12:52 AM [facility] Anion Gap 10 5 - 15 mMol/L 10/12/2024 12:52 AM [facility] Calcium 9.2 8.5 - 10.5 mg/dL 10/12/2024 12:52 AM [facility] Est Glomerular Filtration Rate - Female 105 mL/min/1. 73 m?? 10/12/2024 12:52 AM EST [facility] Comment: This patient's estimated GFR was calculated using the 2020 CKD-EPI equation. The estimated GFR can vary from the measured GFR by up to 30% in the absence of rapidly changing kidney function. Assessment of the estimated GFR is not appropriate when creatinine concentrations are rapidly changing. For clinical situations in which a more precise estimate of GFR is necessary, consider alternative methods of GFR estimation such as a 24-hour urine creatinine clearance. Assignment of CKD stage 1 - 5 for patients with an eGFR near the transition point between stages may be based on clinical assessment of muscle mass and symptoms in addition to eGFR. Link: eGFR Calculator [employer] Blood VENOUS BLOOD SPECIMEN / Unknown Venipuncture / Unknown 10/12/2024 12:04 AM EST 10/12/2024 12:23 AM EST Librado Patel MD CHEMISTRY ORDERABLES [facility] [place] [address] * COVID-19 PCR (10/11/2024 4:26 PM EST) SARS-CoV-2 RNA (Rapid) Not Detected Not Detected 10/11/2024 7:04 PM EST [facility] Swab SPECIMEN FROM NASOPHARYNGEAL STRUCTURE / Unknown Non Blood Collection / Unknown 10/11/2024 4:26 PM EST 10/11/2024 4:39 PM EST Karli Morales MD MICROBIOLOGY - GENER AL ORDERABLES Performing Organization Address [facility]/ZIP Co de Phone Number [facility] [place] [phone] * TSH [place] (10/10/2024 11:50 PM EST) [facility] Thyroid Stimulating Hormone 2.14 0.27 - 4.20 mcIU/mL 10/11/2024 12:44 AM EST [facility] Comment: Reference Interval (mcIU/mL): ?? Females: ? First Trimester: 0.23-3.88 ? Second Trimester: 0.22-3.90 ? Third Trimester: 0.44-4.66 Blood VENOUS BLOOD SPECIMEN / Unknown Venipuncture / Unknown 10/10/2024 11:50 PM EST 10/11/2024 12:07 AM EST Karli Morales MD CHEMISTRY ORDERABLES Performing Organization Address City/[facility]/ZIP Co de Phone Number [facility] [place] [address] * (ABNORMAL) Urinalysis Microscopic with Reflex to Culture (10/09/2024 10:43 AM EST) [facility] Bacteria, Urine Many(A) None /HPF 11:01 AM EST [facility] RBC, Urine 2 0 - 4 /HPF 10/09/2024 11:01 AM [facility] WBC, Urine >=100(H) 0 - 5 /HPF 10/09/2024 11:01 AM [facility] Squamous Epithelial Cells, Urine 0 0 - 5 /HPF 10/09/2024 11:01 AM [facility] Hyaline Casts, Urine 1 0 - 2 /LPF 10/09/2024 11:01 AM [facility] CULTURE ADDED? Yes 10/09/2024 11:01 AM [facility] Urine URINE SPECIMEN OBTAINED VIA STRAIGHT CATHETER / Unknown Non Blood Collection / Unknown 10/09/2024 10:43 AM EST 10/09/2024 10:49 AM EST Karli Morales MD URINE ORDERABLES [facility] [place] [address] * (ABNORMAL) Urinalysis with reflex Culture (10/09/2024 10:43 AM EST) Glucose, Urine Dipstick Negative Negative 10/09/2024 11:01 AM [facility] Protein, Urine Dipstick Trace(A) Negative 10/09/2024 11:01 AM [facility] Bilirubin, Urine Dipstick Negative Negative 10/09/2024 11:01 AM [facility] Comment:Clinical correlation required for positive Urine Bilirubin results as false positive may occur with some drugs and drug related products. If a false positive is suspected a serum total bilirubin should be considered if clinically indicated. Urobilinogen, Urine Dipstick Normal Normal, 0.2 mg/dL, 1.0 mg/dL 10/09/2024 11:01 AM [facility] pH, Urine (dipstick) 7.5 5.0 - 8.0 10/09/2024 11:01 AM [facility] Blood, Urine Dipstick Trace(A) Negative 10/09/2024 11:01 AM [facility] Ketone, Urine Dipstick Negative Negative 10/09/2024 11:01 AM [facility] Nitrite, Urine Dipstick Positive(A) Negative 10/09/2024 11:01 AM [facility] Leukocytes, Urine Dipstick Large(A) Negative 10/09/2024 11:01 AM [facility] Specific [place] Urine Automated 1.017 1.005 - 1.030 10/09/2024 11:01 AM [facility] Appearance, Urine Dipstick Turbid(A) Clear 10/09/2024 11:01 AM [facility] Color, Urine Dipstick Yellow Yellow, Dark Yellow 10/09/2024 11:01 AM [facility] CULTURE ADDED? Yes 10/09/2024 11:01 AM [facility] Urine URINE SPECIMEN OBTAINED VIA STRAIGHT CATHETER / Unknown Non Blood Collection / Unknown 10/09/2024 10:43 AM EST 10/09/2024 10:49 AM EST Karli Morales MD URINE ORDERABLES Performing Organization Address City/State/[facility] Co de Phone Number [facility] [place] [place] [address] * (ABNORMAL) Urine culture (10/09/2024 10:43 AM EST) Urine Culture Greater than 50,000 cfu/mL Escherichia coli(A) VITEK 2 METHOD 10/12/2024 8:32 AM [facility] Urine Culture Greater than 50,000 cfu/mL Raoultella ornithinolytica (A) VITEK 2 METHOD 10/12/2024 8:32 AM [facility] Urine URINE SPECIMEN OBTAINED VIA STRAIGHT CATHETER / Unknown Non Blood Collection / Unknown 10/09/2024 10:43 AM EST 10/09/2024 10:49 AM EST Narrative Organism Antibiotic Method Susceptibility Escherichia coli Ampicillin VITEK 2 METHOD <=2.0 ug/ml: Susceptible Escherichia coli Ampicillin + Sulbactam VITEK 2 METHOD <=2.0 ug/ml: Susceptible Escherichia coli Cefazolin (Systemic) VITEK 2 METHOD Intermediate Escherichia coli Cefazolin (Urine) VITEK 2 METHOD Susceptible Escherichia coli Cephalexin (deduced from Cefazolin) VITEK 2 METHOD Susceptible Comment:Deduced ceph alexin susceptible result applies only to??treatment of uncomplicated urinary tract infections. Escherichia coli Cefepime VITEK 2 METHOD <=0.12 ug/ml: Susceptible Escherichia coli Ceftriaxone VITEK 2 METHOD <=0.25 ug/ml: Susceptible Escherichia coli Ciprofloxacin VITEK 2 METHOD <=0.06 ug/ml: Susceptible Escherichia coli Gentamicin VITEK 2 METHOD <=1.0 ug/ml: Susceptible Escherichia coli Levofloxacin VITEK 2 METHOD <=0.12 ug/ml: Susceptible Escherichia coli Nitrofurantoin VITEK 2 METHOD <=16.0 ug/ml: Susceptible Escherichia coli Piperacillin/Tazobactam VITEK 2 METHO D <=4.0 ug/ml: Susceptible Escherichia coli Trimethoprim/Sulfa VITEK 2 METHOD <=20.0 ug/ml: Susceptible Raoultella ornithinolytica Ampicillin VITEK 2 METHOD >=32.0 ug/ml: Resistant Raoultella ornithinolytica Ampicillin + Sulbactam VITEK 2 METHOD =4.0 ug/ml: Susceptible Raoultella ornithinolytica Cefazolin (Systemic) VITEK 2 METHOD Intermediate Raoultella ornithinolytica Cefepime VITEK 2 METHOD <=0.12 ug/ml: Susceptible Raoultella ornithinolytica Ceftriaxone VITEK 2 METHOD <=0.25 ug/ml: Susceptible Raoultella ornithinolytica Ciprofloxacin VITEK 2 METHOD <=0.06 ug/ml: Susceptible Raoultella ornithinolytica Gentamicin VITEK 2 METHOD <=1.0 ug/ml: Susceptible Raoultella ornithinolytica Levofloxacin VITEK 2 METHOD <=0.12 ug/ml: Susceptible Raoultella ornithinolytica Nitrofurantoin VITEK 2 METHOD 32.0 ug/ml: Susceptible Raoultella ornithinolytica Piperacillin/Tazobactam VITEK 2 METHOD <=4.0 ug/ml: Susceptible Raoultella ornithinolytica Trimethoprim/Sulfa VITEK 2 METHOD <=20.0 ug/ml: Susceptible Karli Morales MD MICROBIOLOGY - GENER AL ORDERABLES [facility] [place] [address] * XR Fluoro Esophagram (Modified/Video Swallow Pharynx) (10/08/2024 4:10 PM EST) WORKSTATION ID [id number] RAD Anatomical Region Laterality Modality N/A Radio Fluoroscop y Impressions 10/08/2024 4:49 PM EST Abnormal modified barium swallow with silent aspiration. Please see Speech Language Pathology clinical notes for further detail. I have personally reviewed the image(s) and the resident's interpretation and agree with the findings, Victor Manuel Smith MD at 10/08/2024 4:49 PM Thank you for letting us participate in the care of this patient. ??If you are a health care provider and have any questions regarding this report, please contact the number below. ??For patients who have questions please contact the health insurance healthcare representative that requested your imaging first. ? Electronically signed by: Victor Manuel Smith MD, [facility] ([phone]), at 10/08/2024 4:49 PM Narrative 10/08/2024 4:49 PM EST EXAMINATION: XR FLUORO ESOPHAGRAM (MODIFIED/VIDEO SWALLOW PHARYNX) CLINICAL HISTORY: pt NPO with g tube; reassess swallow ability to consider advancing diet. TECHNIQUE: The examination was performed in conjunction with speech pathology. ??Varying consistencies of barium were administered under lateral fluoroscopic observation. Fluoro time: 2 minutes and 33 seconds COMPARISON: None FINDINGS: Single episode of aspiration with thin liquids during rapid sequence. The oral phase of swallowing is normal. There is normal elevation of the larynx and normal epiglottic inversion with swallowing. No residual pooling within the valleculae or piriform sinuses. Procedure Note Victor Manuel Smith MD - 10/08/2024 EXAMINATION: XR FLUORO ESOPHAGRAM (MODIFIED/VIDEO SWALLOW PHARYNX) CLINICAL HISTORY: pt NPO with g tube; reassess swallow ability toconsider advancing diet. TECHNIQUE: The examination was performed in conjunction with speech pathology.Varying consistencies of barium were administered under lateral fluoroscopic observation. Fluoro time: 2 minutes and 33 seconds COMPARISON: None FINDINGS: Single episode of aspiration with thin liquids during rapid sequence. The oral phase of swallowing is normal. There is normal elevation of the larynx and normal epiglottic inversionwith swallowing. No residual pooling within the valleculae or piriform sinuses. IMPRESSION Abnormal modified barium swallow with silent aspiration. Please see Speech Language Pathology clinical notes for further detail. I have personally reviewed the image(s) and the resident's interpretationand agree with the findings, Victor Manuel Smith MD at 10/08/2024 4:49 PM Thank you for letting us participate in the care of this patient. If youare a health care provider and have any questions regarding this report,please contact the number below. For patients who have questions please contactthe health insurance healthcare representative that requested your imaging first. Karli Morales MD IMG FLUORO ORDERABLE S * CT Head wo Contrast (Generic) (10/07/2024 3:25 PM EST) Only the most recent of8 resultswithin the time period is included. WORKSTATION ID [id number] RAD Anatomical Region Laterality Modality Head Computed Tomogra phy Impressions 10/07/2024 4:11 PM EST 1. ??Interval decreased prominence of RIGHT parenchymal hemorrhage with unchanged RIGHT holohemispheric mass effect and RIGHT to LEFT midline shift. 2. ??No new hemorrhages. I have personally reviewed the image(s) and the resident's interpretation and agree with the findings, Domingo Puentes at 10/07/2024 4:11 PM Thank you for letting us participate in the care of this patient. ??If you are a health care provider and have any questions regarding this report, please contact the number below. ??For patients who have questions please contact the health insurance healthcare representative that requested your imaging first. ? Narrative 10/07/2024 4:11 PM EST EXAMINATION: CT HEAD WO CONTRAST (GENERIC) CLINICAL HISTORY: headache and vomitting in the setting of recent stroke TECHNIQUE: CT head performed without intravenous contrast administration. COMPARISON: MRI brain 10/04/2024 FINDINGS: Stable appearance of right frontal parietal craniotomy with similar low attenuation collection over the inferior margin of the bone flap. Decreased attenuation and mildly decreased size of attenuation LEFT parenchymal hemorrhage. Unchanged cortical hyperdensity in the lateral RIGHT temporal lobe consistent with cortical laminar necrosis/petechial hemorrhage. No new hemorrhages. Similar extent of surrounding, associated edema involving the right temporal lobe, right parietal lobe and right basal ganglia. Diffuse mass effect throughout the RIGHT cerebral convexity with diffuse sulcal sulcal effacement and partial effacement of the RIGHT lateral ventricle. Similar 6 mm of right to left midline shift and small amount of subfalcine herniation.. No downward transtentorial herniation. Stable configuration of the ventricles and sulci. Mastoid air cells and paranasal sinuses are clear. Imaged orbits are normal. Procedure Note Domingo Puentes MD - 10/07/2024 EXAMINATION: CT HEAD WO CONTRAST (GENERIC) CLINICAL HISTORY: headache and vomitting in the setting of recent stroke TECHNIQUE: CT head performed without intravenous contrast administration. COMPARISON: MRI brain 10/04/2024 FINDINGS: Stable appearance of right frontal parietal craniotomy with similar low attenuation collection over the inferior margin of the bone flap. Decreased attenuation and mildly decreased size of attenuation LEFTparenchymal hemorrhage. Unchanged cortical hyperdensity in the lateral RIGHT temporallobe consistent with cortical laminar necrosis/petechial hemorrhage. No new hemorrhages. Similar extent of surrounding, associated edema involving the righttemporal lobe, right parietal lobe and right basal ganglia. Diffuse mass effect throughout the RIGHT cerebral convexity with diffuse sulcal sulcaleffacement and partial effacement of the RIGHT lateral ventricle. Similar 6 mm ofright to left midline shift and small amount of subfalcine herniation.. Nodownward transtentorial herniation. Stable configuration of the ventricles and sulci. Mastoid air cells and paranasal sinuses are clear. Imaged orbits are normal. IMPRESSION 1. Interval decreased prominence of RIGHT parenchymal hemorrhage withunchanged RIGHT holohemispheric mass effect and RIGHT to LEFT midline shift. 2. No new hemorrhages. I have personally reviewed the image(s) and the resident's interpretationand agree with the findings, Domingo Puentes at 10/07/2024 4:11 PM Thank you for letting us participate in the care of this patient. If youare a health care provider and have any questions regarding this report,please contact the number below. For patients who have questions please contactthe health insurance healthcare representative that requested your imaging first. Karli Morales MD IMG CT ORDERABLES * Scan Doc: Telemetry Strips (10/07/2024 10:37 AM EST) Only the most recent of42 resultswithin the time period is included. Narrative 10/07/2024 10:37 AM EST Ordered by an unspecified provider. Scanning Provider MEDIA MGR SCAN EXT O RDR/RSLT * (ABNORMAL) Troponin-T, High Sensitivity 1 Hour (10/06/2024 12:41 PM EST) Only the most recent of2 resultswithin the time period is included. Troponin-T, High Sensitivity 18(H) <=14 ng/L 10/06/2024 1:28 PM EST [facility] Comment: This patient's troponin T concentration was determined using the Yair 5th Generation troponin T assay. According to the fourth universal definition of myocardial infarction, the term acute myocardial infarction should be used when there is acute myocardial injury with clinical evidence of acute myocardial ischemia and with detection of a rise and/or fall of cardiac troponin values with at least one value above the 99th percentile and at least one of the following: - Symptoms of myocardial ischemia; - New ischemic ECG changes; - Development of pathological Q waves; - Imaging evidence of new loss of viable myocardium or new regional wall motion ?? abnormality in a pattern consistent with an ischemic etiology; - Identification of a coronary thrombus by angiography or autopsy (not for type 2 or 3 ?? MIs) Serial measurement of troponin and the change in troponin concentration over time (delta) is crucial for the diagnosis of acute myocardial infarction. Guidance on the interpretation of the new 5th Generation Troponin T values and the delta troponin value can be found in the [facility] Test Catalog Troponin - https://[employer].testcatalog.org/catalogs/565/files/70681 Reference: Fourth [place] Definition of Myocardial Infarction. Journal of the [place] [employer] 2018;72:7964-8025 Troponin-T, HS 1 hr delta 3 ng/L 10/06/2024 1:28 PM EST [facility] Comment:The 1 hour Troponin T delta value is the absolute difference between the Troponin T concentrations of the initial and subsequent sample collected between 45 - 120 minutes following the initial collection. Blood VENOUS BLOOD SPECIMEN / Unknown Venipuncture / Unknown 10/06/2024 12:41 PM EST 10/06/2024 12:55 PM EST Karli Morales MD CHEMISTRY ORDERABLES [facility] [place] [address] * EKG 12 Lead (10/06/2024 11:36 AM EST) Only the most recent of5 resultswithin the time period is included. Ventricular rate 100 BPM MUSE SYSTEM Atrial Rate 100 BPM MUSE SYSTEM P-R Interval 134 ms MUSE SYSTEM QRS Duration 60 ms MUSE SYSTEM Q-T Interval 320 ms MUSE SYSTEM QTC Calculated (Bezet) 412 ms MUSE SYSTEM Calculated P [place] 30 degrees MUSE SYSTEM Calculated R [place] -24 degrees MUSE SYSTEM Calculated T [place] 16 degrees MUSE SYSTEM INTERPRETATION Normal sinus rhythm Cannot rule out Anterior infarct (cited on or before 28-SEP-2024) Abnormal ECG When compared with ECG of 28-SEP-2024 03:59, Premature atrial complexes are no longer Present Confirmed by fellow Johanna Beatty ([id number]) on 10/08/2024 2:53:19 PM Confirmed by MD Domingo Jon ([id number]) on 10/08/2024 3:30:06 PM MUSE SYSTEM 10/06/2024 11:3 6 AM EST 10/08/2024 3:30 PM EST Unknown ECG ORDERABLES MUSE SYSTEM * (ABNORMAL) Troponin-T, High Sensitivity (10/06/2024 11:13 AM EST) Only the most recent of2 resultswithin the time period is included. Troponin-T, High Sensitivity Initial 21(H) <=14 ng/L 10/06/2024 11:53 AM EST [facility] Comment: This patient's troponin T concentration was determined using the Yair 5th Generation troponin T assay. The 99th percentile for Troponin T for this test is 14 ng/L for females, and 22 ng/L for males. According to the fourth universal definition of myocardial infarction, the term acute myocardial infarction should be used when there is acute myocardial injury with clinical evidence of acute myocardial ischemia and with detection of a rise and/or fall of cardiac troponin values with at least one value above the 99th percentile and at least one of the following: - Symptoms of myocardial ischemia; - New ischemic ECG changes; - Development of pathological Q waves; - Imaging evidence of new loss of viable myocardium or new regional wall motion ?? abnormality in a pattern consistent with an ischemic etiology; - Identification of a coronary thrombus by angiography or autopsy (not for type 2 or 3 ?? MIs) Serial measurement of troponin and the change in troponin concentration over time (delta) is crucial for the diagnosis of acute myocardial infarction. Guidance on the interpretation of the new 5th Generation Troponin T values and the delta troponin value can be found in the [facility] Test Catalog Troponin - https://one-.testcatalog.org/catalogs/565/files/67810 Reference: Fourth [place] Definition of Myocardial Infarction. Journal of the [place] [employer] 2018;72:7513-1120 Blood VENOUS BLOOD SPECIMEN / Unknown Venipuncture / Unknown 10/06/2024 11:13 AM EST 10/06/2024 11:17 AM EST Karli Morales MD [place] [address] * XR Chest One View (10/06/2024 10:59 AM EST) Only the most recent of8 resultswithin the time period is included. WORKSTATION ID [id number] RAD Anatomical Region Laterality Modality Chest N/A Digital Radiogra phy Impressions 10/06/2024 3:00 PM EST Improved but persistent retrocardiac patchy opacity which is favored to represent atelectasis although underlying acute infectious/inflammatory process cannot be excluded. I have personally reviewed the image(s) and the resident's interpretation and agree with the findings, MICHELLE PEREZ MD at 10/06/2024 3:00 PM Thank you for letting us participate in the care of this patient. ??If you are a health care provider and have any questions regarding this report, please contact the number below. ??For patients who have questions please contact the health insurance healthcare representative that requested your imaging first. ? Narrative 10/06/2024 3:00 PM EST EXAMINATION: XR CHEST ONE VIEW CLINICAL HISTORY: dyspnea, chest pain TECHNIQUE: 1 view of the chest COMPARISON: Chest radiograph 09/29/2024 FINDINGS: Left atrial occlusion device. Interval removal of of enteric tube and central venous catheter. Unchanged mildly enlarged cardiomediastinal contours which may be projectional. The leigh, and pulmonary vasculature are normal. Improved aeration of the left lung base with persistent mild patchy retrocardiac opacity. The right lung is clear. No pneumothorax or pleural effusion. ?? No acute osseous abnormalities. Procedure Note Michelle Preez MD - 10/06/2024 EXAMINATION: XR CHEST ONE VIEW CLINICAL HISTORY: dyspnea, chest pain TECHNIQUE: 1 view of the chest COMPARISON: Chest radiograph 09/29/2024 FINDINGS: Left atrial occlusion device. Interval removal of of enteric tube andcentral venous catheter. Unchanged mildly enlarged cardiomediastinal contours which may beprojectional. The leigh, and pulmonary vasculature are normal. Improved aeration of the left lung base with persistent mild patchyretrocardiac opacity. The right lung is clear. No pneumothorax or pleural effusion. No acute osseous abnormalities. IMPRESSION Improved but persistent retrocardiac patchy opacity which is favored to represent atelectasis although underlying acute infectious/inflammatoryprocess cannot be excluded. I have personally reviewed the image(s) and the resident's interpretationand agree with the findings, MICHELLE PEREZ MD at 10/06/2024 3:00 PM Thank you for letting us participate in the care of this patient. If youare a health care provider and have any questions regarding this report,please contact the number below. For patients who have questions please contactthe health insurance healthcare representative that requested your imaging first. Karli Morales MD IMG DX ORDERABLES * (ABNORMAL) CRP, acute inflammation (10/05/2024 12:08 AM EST) C-Reactive Protein 8.6(H) <=4.9 mg/L 10/05/2024 6:11 AM EST [facility] Blood VENOUS BLOOD SPECIMEN / Unknown Venipuncture / Unknown 10/05/2024 12:08 AM EST 10/05/2024 12:17 AM EST Gissell Velazco MD CHEMISTRY ORDERABL ES Performing Organization Address City/[facility] Co de Phone Number [facility] [place] [address] * Sedimentation rate (10/05/2024 12:08 AM EST) Sedimentation Rate Automated 40 3 - 46 mm/hr 10/05/2024 6:34 AM EST [facility] Blood VENOUS BLOOD SPECIMEN / Unknown Venipuncture / Unknown 10/05/2024 12:08 AM EST 10/05/2024 12:17 AM EST Gissell Velazco MD HEMATOLOGY ORDERAB LES Performing Organization Address [facility] Co de Phone Number [facility] [place] [address] * MRI Brain wwo Contrast (Generic) (10/04/2024 10:30 PM EST) Only the most recent of2 resultswithin the time period is included. WORKSTATION ID [id number] DH RAD Anatomical Region Laterality Modality Head Magnetic Resonan ce Impressions 10/05/2024 12:31 AM EST 1. ??Fluid collections in the right parietal lobe ??now showing some restricted diffusion, question abscess formation or hemorrhage. Fluid in the collections projecting deep to the craniotomy and at the margin of the craniotomy with restricted diffusion suggesting abscess formation or hemorrhage. 2. ??Fluid collections in the extra-axial space and adjacent to the craniotomy. These do not appear to demonstrate restricted diffusion and may represent a meningocele formation. 3. ??Interval decrease in mass effect compared to MRI of 09/19/2024. Thank you for letting us participate in the care of this patient. ??If you are a health care provider and have any questions regarding this report, please contact the number below. ??For patients who have questions please contact the health insurance healthcare representative that requested your imaging first. ? Narrative 10/05/2024 12:31 AM EST EXAMINATION: MRI BRAIN WWO CONTRAST (GENERIC) CLINICAL HISTORY: fluid collection TECHNIQUE: MRI of the brain was performed before and after the intravenous administration of 16cc Dotarem. COMPARISON: Head CT dated 10/04/2024 Brain MRI dated 09/19/2024 FINDINGS: Similar appearance of right-sided craniotomy. There is small amount of extra-axial fluid underlying the craniotomy. There is also small amount of fluid projecting the caudal margin of the craniotomy and superficial to the craniotomy. There is a fluid collection with fluid debris level in the right parietal lobe with thick peripheral enhancement and restricted diffusion within the collection. There is a second collection the right parietal lobe, image 89 series 4001 with restricted diffusion. Fluid signal adjacent to the right parietal collection on image 86 of series 5001 demonstrate some restricted diffusion. There is extensive edema postoperative change and some restricted diffusion projecting in the right temporal lobe parenchyma lateral to the temporal horn lateral ventricle. There is restricted diffusion projecting at the caudal posterior margin of the craniotomy in location of a small fluid collection, image 31 series 5001 and beneath the craniotomy image 31 series 5001. Extensive abnormal enhancement is seen in the right parietal lobe and right temporal lobe, new compared to prior exam of 09/19/2024.. There is mass effect locally in the right temporal parietal lobes. Some mass effect on the right lateral ventricle without entrapment. No downward transtentorial herniation. Ventricles are improved in contour compared to prior exam of 09/19/2024 with diminished mass effect Procedure Note Armando Pan MD - 10/05/2024 EXAMINATION: MRI BRAIN WWO CONTRAST (GENERIC) CLINICAL HISTORY: fluid collection TECHNIQUE: MRI of the brain was performed before and after the intravenousadministration of 16cc Dotarem. COMPARISON: Head CT dated 10/04/2024 Brain MRI dated 09/19/2024 FINDINGS: Similar appearance of right-sided craniotomy. There is small amount of extra-axial fluid underlying the craniotomy. There is also small amount offluid projecting the caudal margin of the craniotomy and superficial to the craniotomy. There is a fluid collection with fluid debris level in the right parietallobe with thick peripheral enhancement and restricted diffusion within the collection. There is a second collection the right parietal lobe, image89 series 4001 with restricted diffusion. Fluid signal adjacent to the right parietal collection on image 86 ofseries 5001 demonstrate some restricted diffusion. There is extensive edema postoperative change and some restricteddiffusion projecting in the right temporal lobe parenchyma lateral to the temporalhorn lateral ventricle. There is restricted diffusion projecting at the caudal posterior margin ofthe craniotomy in location of a small fluid collection, image 31 series 5001and beneath the craniotomy image 31 series 5001. Extensive abnormal enhancement is seen in the right parietal lobe andright temporal lobe, new compared to prior exam of 09/19/2024.. There is mass effect locally in the right temporal parietal lobes. Somemass effect on the right lateral ventricle without entrapment. No downward transtentorial herniation. Ventricles are improved in contour compared to prior exam of 09/19/2024with diminished mass effect IMPRESSION 1. Fluid collections in the right parietal lobe now showing somerestricted diffusion, question abscess formation or hemorrhage. Fluid in thecollections projecting deep to the craniotomy and at the margin of the craniotomywith restricted diffusion suggesting abscess formation or hemorrhage. 2. Fluid collections in the extra-axial space and adjacent to thecraniotomy. These do not appear to demonstrate restricted diffusion and may representa meningocele formation. 3. Interval decrease in mass effect compared to MRI of 09/19/2024. Thank you for letting us participate in the care of this patient. If youare a health care provider and have any questions regarding this report,please contact the number below. For patients who have questions please contactthe health insurance healthcare representative that requested your imaging first. Gissell Velazco MD IMG MRI ORDERABLES * IR G-Tube Placement (10/04/2024 1:00 PM EST) Anatomical Region Laterality Modality Chest X-Ray Angiograph y Narrative 10/04/2024 1:48 PM EST INTERVENTIONAL RADIOLOGY PROCEDURE NOTE Procedure: Gastrostomy tube placement Indication for Procedure: Stroke, need for durable enteral access Informed Consent: After discussing risks (including infection, trauma / damage to surrounding structures, hemorrhage, non-success, amongst others), and benefits of the procedure, the patient's healthcare proxy consented to the procedure. Monitoring and Sedation Details: Airway management, sedation, and hemodynamic monitoring of vital signs was provided by the Anesthesia service. Please see the separate Anesthesia record for details. Procedure Events and Technique: A standard time-out was conducted just before the start of the procedure to verify all williamson aspects; including the correct patient and planned procedure, procedure location, informed consent, and all relevant critical information, all of which were correct. The patient was positioned supine on the procedure table. ??The upper abdomen was cleaned and prepped in typical sterile fashion; maximal sterile barrier technique was used throughout. ?? After insufflation of air via the nasoenteric catheter, apposition of the anterior gastric and anterior abdominal thurman was documented with a lateral fluoroscopic image. ?? The skin over the stomach was infiltrated with 10 mL 1% lidocaine for analgesia. ??An 18 gauge T-tack needle with preloaded stay suture was advanced under fluoroscopic guidance into the stomach and a stay suture deployed. ??This was repeated x 1. ?? At the center of ??the stay sutures, another puncture was made and over an 0.035 inch Amplatz guidewire, the tract was dilated with a 7 mm balloon. ??On the balloon catheter, the gastrostomy catheter had been pre-loaded; as the balloon catheter was deflated, the gastrostomy catheter was advanced over the wire. ?? The balloon catheter and guide wire were removed. ??Contrast study demonstrated intragastric location. ??The catheter was sutured to the skin with the T-tack sutures. ??A sterile dressing was applied. ?? Medications: See anesthesia record. Glucagon 1 mg IV. Antibiotic Prophylaxis: Cefazolin 2 g IV. Contrast: 33 cc Omnipaque 350, intragastric. Fluoroscopic Time: 2.7 minutes. Estimated Blood Loss: < 10 cc. Complications: ??No immediate. Findings: Intragastric position of the gastrostomy tube Impression: Successful 16 Fr gastrostomy tube placement. The tube may be used immediately. Attending: Jony Sampson MD I, Dr. Sampson, was present throughout the procedure. Gissell Velazco MD IMG IR ORDERABLES * (ABNORMAL) Troponin-T, High Sensitivity 3 Hour (09/28/2024 6:37 AM EST) [facility] Troponin-T, High Sensitivity 16(H) <=14 ng/L 09/28/2024 7:25 AM EST [facility] Comment: This patient's troponin T concentration was determined using the Yair 5th Generation troponin T assay. According to the fourth universal definition of myocardial infarction, the term acute myocardial infarction should be used when there is acute myocardial injury with clinical evidence of acute myocardial ischemia and with detection of a rise and/or fall of cardiac troponin values with at least one value above the 99th percentile and at least one of the following: - Symptoms of myocardial ischemia; - New ischemic ECG changes; - Development of pathological Q waves; - Imaging evidence of new loss of viable myocardium or new regional wall motion ?? abnormality in a pattern consistent with an ischemic etiology; - Identification of a coronary thrombus by angiography or autopsy (not for type 2 or 3 ?? MIs) Serial measurement of troponin and the change in troponin concentration over time (delta) is crucial for the diagnosis of acute myocardial infarction. Guidance on the interpretation of the new 5th Generation Troponin T values and the delta troponin value can be found in the [facility] Test Catalog Troponin - https://[email or web address]-dh.testcatalog.org/[email or web address]/[email or web address] Reference: Fourth [place] Definition of Myocardial Infarction. Journal of the [place] [employer] 2018;72:0672-2648 Troponin-T, HS 3 hr delta 09/28/2024 7:25 AM EST [facility] Comment:Delta troponin value not calculated, sample collected outside of delta calculation time limit. Blood VENOUS BLOOD SPECIMEN / Unknown Venipuncture / Unknown 09/28/2024 6:37 AM EST 09/28/2024 6:53 AM EST Teresa Ava Multani RICHARD CHEMISTRY ORDERABL ES Performing Organization Address City/[facility] Co de Phone Number [facility] [place] [address] * (ABNORMAL) Scan, Peripheral Blood (09/28/2024 3:58 AM EST) Only the most recent of4 resultswithin the time period is included. RBC Morphology Abnormal 09/28/2024 4:58 AM EST [facility] Platelet Estimate Increased(A) Normal 09/28 4:58 AM EST [facility] Polychromasia Present 09/28/2024 4:58 AM EST [facility] WBC MORPHOLOGY See Comment(A) (none) 09/28/2024 4:58 AM EST [facility] Comment:Vacuolated Grans Blood VENOUS BLOOD SPECIMEN / Unknown Venipuncture / Unknown 09/28/2024 3:58 AM EST 09/28/2024 4:03 AM EST Librado Patel MD HEMATOLOGY ORDERABLE S Performing Organization Address City/[facility] Co de Phone Number [facility] [place] [address] * Potassium (09/27/2024 4:46 PM EST) Only the most recent of5 resultswithin the time period is included. Potassium 4.0 3.5 - 5.0 mMol/L 09/27/2024 5:24 PM EST [facility] Blood VENOUS BLOOD SPECIMEN / Unknown Venipuncture / Unknown 09/27/2024 4:46 PM EST 09/27/2024 5:00 PM EST Librado Patel MD CHEMISTRY ORDERABLES Performing Organization Address City/State/[facility] de Phone Number [facility] [place] [address] * C diff Screen (09/27/2024 8:46 AM EST) C Diff Interp Negative Negative 09/27/2024 1:42 PM EST [facility] Comment:Clostridioides diffi cile is not present in the specimen. If patient is having diarrhea suspected to be from an infectious cause, then Soap & Water Contact Precautions are still required. If patient is having diarrhea with no suspected infectious cause use standard precautions. C Diff PCR Negative Negative 09/27/2024 1:42 PM EST [facility] Stool STOOL SPECIMEN / Unknown Non Blood Collection / Unknown 09/27/2024 8:46 AM EST 09/27/2024 8:59 AM EST Mariola Calixto MD MICROBIOLOGY - GEN ERAL ORDERABLES Performing Organization Address [facility] Co de Phone Number [facility] [place] [address] * C Diff PCR (09/27/2024 8:46 AM EST) Stool STOOL SPECIMEN / Unknown Non Blood Collection / Unknown 09/27/2024 8:46 AM EST 09/27/2024 8:59 AM EST Mariola Calixto MD MICROBIOLOGY - GEN ERAL ORDERABLES Performing Organization Address [facility] Co de Phone Number [facility] [place] [address] * Blood culture (09/26/2024 2:53 PM EST) Only the most recent of4 resultswithin the time period is included. Blood Culture No growth at 120 hours 10/01/2024 4:02 PM EST [facility] Blood VENOUS BLOOD SPECIMEN / Unknown Venipuncture / Unknown 09/26/2024 2:53 PM EST 09/26/2024 2:59 PM EST Jah Altman [employer] MICROBIOLOGY - BLO OD ORDERABLES [facility] [place] [address] * (ABNORMAL) CT Angiogram Chest for Pulmonary Embolus w Contrast (09/26/2024 1:37 PM EST) WORKSTATION ID [id number] RAD Anatomical Region Laterality Modality Chest Computed Tomogra phy Impressions 09/26/2024 1:54 PM EST 1. ??No pulmonary embolism. 2. ??Pulmonary edema. 3. ??Bibasilar atelectasis. ??Superimposed patchy airspace opacity in the left lower lobe may represent atelectasis versus pneumonia. 4. ??Mild emphysema. 5. ??Mild cardiomegaly. ??Left atrial appendage occlusion device in situ. ??Mild multifocal coronary atherosclerosis. ??Correlation with echocardiography may be of benefit. 6. ??Unexpected Findin mm indeterminant left adrenal nodule. ??Per ACR white paper guidelines, follow-up CT of the Abdomen (Adrenal protocol - without and with intravenous contrast) is recommended in one year. 7. ??Mild sigmoid diverticulosis coli without secondary signs of acute diverticulitis. 8. ??Interval development of anasarca, which may be related to hypervolemia, hypoproteinemia, or combination thereof. 9. ??Endotracheal catheter in situ with tip 4 mm above the jonathan. ??Recommend retraction. 10. ??Enteric catheter in situ with tip terminating in the gastric pylorus. 11. ??Hill catheter in situ. ??Persistent distention of the urinary bladder. Correlation with catheter functionality is recommended. 12. ??Rectal catheter in situ. Thank you for letting us participate in the care of this patient. ??If you are a health care provider and have any questions regarding this report, please contact the number below. ??For patients who have questions please contact the health insurance healthcare representative that requested your imaging first. ? Narrative 09/26/2024 1:54 PM EST EXAMINATION: * ??CTA CHEST PULMONARY EMBOLISM W CONTRAST * ??CT ABDOMEN AND PELVIS W CONTRAST CLINICAL HISTORY: significant leukocytosis, increased O2 requirement, tachycardic, concern for pulmonary embolism. ??Significant worsening leukocytosis despite starting antibiotics. ??Evaluation for possible source of infection or inflammation. TECHNIQUE: CT pulmonary angiogram of the chest and CT of the abdomen and pelvis after intravenous contrast. MIP reformatted images of the chest were created on an independent workstation. Administered 120.0 ml of OMNIPAQUE 350.00 mg/ml intravenously. Oral contrast was not administered. COMPARISON: Correlation is made to multiple prior chest and abdominal radiograph examinations, the most recent of which is dated September 18, 2024 FINDINGS: Limitations: Streak and photon starvation artifact from patient body habitus and arm positioning limits evaluation. Manager Risk Images: Noncontributory. CT OF THE CHEST: Pulmonary parenchyma: There is dependent atelectasis bilaterally. ??There is patchy consolidation in the left lower lobe associated with volume loss. ??There are multifocal groundglass opacities throughout the bilateral lungs associated with some interlobular septal thickening at the lung bases. ??There is mild centrilobular emphysema. Airways: There is an endotracheal catheter in situ with tip 4 mm above the jontahan. ??The central airways are otherwise patent. ??There is no endobronchial or endotracheal lesion. Pleura: There is no pleural effusion or pneumothorax. Lymph nodes:There are no pathologically enlarged lymph nodes. Heart, pericardium, and great vessels: Cardiac size is mildly enlarged. ??There is a left atrial occlusion device present. ??The aorta is normal in course and caliber. ??There is a pseudobovine arch with a combined origin to the right innominate and left common carotid arteries. ??Visualized aspects of the great vessels are widely patent. ??The pulmonary arteries are normal in course and caliber. ??The contrast bolus is adequate for evaluation; there are no intraluminal filling defects. Other mediastinal structures: The mediastinal fat is preserved. ??There is an enteric catheter within the esophagus with tip terminating at the gastric pylorus. Lower neck: Visualized structures within the inferior neck are within normal limits. Body wall soft tissues: Normal. Skeletal structures: There are no suspicious osseous lesions. ??There are mild degenerative changes the visualized spine with endplate sclerosis and osteophyte formation. ??There are mild arthritic changes the bilateral glenohumeral joints. CT OF THE ABDOMEN AND PELVIS: Liver: Normal. Bile ducts: Normal. Gallbladder: Normal. Pancreas: Normal. Spleen: Normal. Adrenals: There is a 26 mm intermediate attenuating, 65 Hounsfield unit, left adrenal nodule. ??The right adrenal gland images normally. Kidneys: There are bilateral extrarenal pelvis. ??There is no hydroureter. ??The kidneys enhance symmetrically. Urinary Bladder: The urinary bladder is distended. ??There is a Hill catheter in situ. Vasculature: The aorta is normal in course and caliber. ??There is confluent atherosclerotic calcification of the infrarenal abdominal aorta, moderate. ??The origin the mesenteric and renal arteries are within normal limits. ??The inferior vena cava is normal in course and caliber. ??The superior mesenteric, splenic, and portal veins are patent. ??The hepatic veins are patent. ??The renal veins are patent. Lymph Nodes: ??There are no pathologically enlarged lymph nodes. Bowel: Limited evaluation of the distal esophagus is unremarkable. ??The stomach is distended with contrast. ??The duodenum is normal in course and caliber. ??The remainder of the small bowel is within normal limits. ??The ileocecal valve is within normal is. ??A normal contrast filled and collapsed appendix is present. There is oral contrast throughout the large bowel. ??There is mild sigmoid diverticulosis coli without secondary signs of acute inflammation. ??There is a rectal catheter in situ. Peritoneum and mesentery: There is dependent trace presacral edema. ??There is no ascites or fluid collections elsewhere. ??There is no mesenteric edema elsewhere. There is no pneumoperitoneum. Abdominal wall: There are focal regions of fat stranding within the subcutaneous fat of the abdominal wall, likely related to medication injections. ??There is anasarca particularly along the bilateral flanks extending into the bilateral legs. Reproductive organs: The uterus is surgically absent. ??Limited evaluation of the adnexa is within normal limits. Osseous structures: There are no suspicious osseous lesions. ??There are mild degenerative changes of the sacroiliac joints and pubic symphysis. ??There are mild degenerative changes the visualized spine with endplate sclerosis and osteophyte formation. Resulting Agency Comment Unexpected Finding Marisela Cartwright [employer] IMG CT ORDERABLES * (ABNORMAL) CT Abdomen & Pelvis w Contrast (09/26/2024 1:37 PM EST) WORKSTATION ID [id number] RAD Anatomical Region Laterality Modality Abdomen, Pelvis Computed Tomogra phy Impressions 09/26/2024 1:54 PM EST 1. ??No pulmonary embolism. 2. ??Pulmonary edema. 3. ??Bibasilar atelectasis. ??Superimposed patchy airspace opacity in the left lower lobe may represent atelectasis versus pneumonia. 4. ??Mild emphysema. 5. ??Mild cardiomegaly. ??Left atrial appendage occlusion device in situ. ??Mild multifocal coronary atherosclerosis. ??Correlation with echocardiography may be of benefit. 6. ??Unexpected Findin mm indeterminant left adrenal nodule. ??Per ACR white paper guidelines, follow-up CT of the Abdomen (Adrenal protocol - without and with intravenous contrast) is recommended in one year. 7. ??Mild sigmoid diverticulosis coli without secondary signs of acute diverticulitis. 8. ??Interval development of anasarca, which may be related to hypervolemia, hypoproteinemia, or combination thereof. 9. ??Endotracheal catheter in situ with tip 4 mm above the jonathan. ??Recommend retraction. 10. ??Enteric catheter in situ with tip terminating in the gastric pylorus. 11. ??Hill catheter in situ. ??Persistent distention of the urinary bladder. Correlation with catheter functionality is recommended. 12. ??Rectal catheter in situ. Thank you for letting us participate in the care of this patient. ??If you are a health care provider and have any questions regarding this report, please contact the number below. ??For patients who have questions please contact the health insurance healthcare representative that requested your imaging first. ? Narrative 09/26/2024 1:54 PM EST EXAMINATION: * ??CTA CHEST PULMONARY EMBOLISM W CONTRAST * ??CT ABDOMEN AND PELVIS W CONTRAST CLINICAL HISTORY: significant leukocytosis, increased O2 requirement, tachycardic, concern for pulmonary embolism. ??Significant worsening leukocytosis despite starting antibiotics. ??Evaluation for possible source of infection or inflammation. TECHNIQUE: CT pulmonary angiogram of the chest and CT of the abdomen and pelvis after intravenous contrast. MIP reformatted images of the chest were created on an independent workstation. Administered 120.0 ml of OMNIPAQUE 350.00 mg/ml intravenously. Oral contrast was not administered. COMPARISON: Correlation is made to multiple prior chest and abdominal radiograph examinations, the most recent of which is dated September 18, 2024 FINDINGS: Limitations: Streak and photon starvation artifact from patient body habitus and arm positioning limits evaluation. Manager Risk Images: Noncontributory. CT OF THE CHEST: Pulmonary parenchyma: There is dependent atelectasis bilaterally. ??There is patchy consolidation in the left lower lobe associated with volume loss. ??There are multifocal groundglass opacities throughout the bilateral lungs associated with some interlobular septal thickening at the lung bases. ??There is mild centrilobular emphysema. Airways: There is an endotracheal catheter in situ with tip 4 mm above the jonathan. ??The central airways are otherwise patent. ??There is no endobronchial or endotracheal lesion. Pleura: There is no pleural effusion or pneumothorax. Lymph nodes:There are no pathologically enlarged lymph nodes. Heart, pericardium, and great vessels: Cardiac size is mildly enlarged. ??There is a left atrial occlusion device present. ??The aorta is normal in course and caliber. ??There is a pseudobovine arch with a combined origin to the right innominate and left common carotid arteries. ??Visualized aspects of the great vessels are widely patent. ??The pulmonary arteries are normal in course and caliber. ??The contrast bolus is adequate for evaluation; there are no intraluminal filling defects. Other mediastinal structures: The mediastinal fat is preserved. ??There is an enteric catheter within the esophagus with tip terminating at the gastric pylorus. Lower neck: Visualized structures within the inferior neck are within normal limits. Body wall soft tissues: Normal. Skeletal structures: There are no suspicious osseous lesions. ??There are mild degenerative changes the visualized spine with endplate sclerosis and osteophyte formation. ??There are mild arthritic changes the bilateral glenohumeral joints. CT OF THE ABDOMEN AND PELVIS: Liver: Normal. Bile ducts: Normal. Gallbladder: Normal. Pancreas: Normal. Spleen: Normal. Adrenals: There is a 26 mm intermediate attenuating, 65 Hounsfield unit, left adrenal nodule. ??The right adrenal gland images normally. Kidneys: There are bilateral extrarenal pelvis. ??There is no hydroureter. ??The kidneys enhance symmetrically. Urinary Bladder: The urinary bladder is distended. ??There is a Hill catheter in situ. Vasculature: The aorta is normal in course and caliber. ??There is confluent atherosclerotic calcification of the infrarenal abdominal aorta, moderate. ??The origin the mesenteric and renal arteries are within normal limits. ??The inferior vena cava is normal in course and caliber. ??The superior mesenteric, splenic, and portal veins are patent. ??The hepatic veins are patent. ??The renal veins are patent. Lymph Nodes: ??There are no pathologically enlarged lymph nodes. Bowel: Limited evaluation of the distal esophagus is unremarkable. ??The stomach is distended with contrast. ??The duodenum is normal in course and caliber. ??The remainder of the small bowel is within normal limits. ??The ileocecal valve is within normal is. ??A normal contrast filled and collapsed appendix is present. There is oral contrast throughout the large bowel. ??There is mild sigmoid diverticulosis coli without secondary signs of acute inflammation. ??There is a rectal catheter in situ. Peritoneum and mesentery: There is dependent trace presacral edema. ??There is no ascites or fluid collections elsewhere. ??There is no mesenteric edema elsewhere. There is no pneumoperitoneum. Abdominal wall: There are focal regions of fat stranding within the subcutaneous fat of the abdominal wall, likely related to medication injections. ??There is anasarca particularly along the bilateral flanks extending into the bilateral legs. Reproductive organs: The uterus is surgically absent. ??Limited evaluation of the adnexa is within normal limits. Osseous structures: There are no suspicious osseous lesions. ??There are mild degenerative changes of the sacroiliac joints and pubic symphysis. ??There are mild degenerative changes the visualized spine with endplate sclerosis and osteophyte formation. Jah Altman APRN IMG CT ORDERABLES * Prolactin (09/26/2024 6:35 AM EST) Prolactin 23.0 4.8 - 23.3 ng/ml 09/26/2024 7:26 AM EST [facility] Blood VENOUS BLOOD SPECIMEN / Unknown Venipuncture / Unknown 09/26/2024 6:35 AM EST 09/26/2024 6:40 AM EST Jah Altman APRN CHEMISTRY ORDERABL ES [facility] [place] [address] * CK (09/26/2024 6:35 AM EST) Creatine Kinase 78 0 - 160 unit/L 09/26/2024 7:46 AM EST [facility] Blood VENOUS BLOOD SPECIMEN / Unknown Venipuncture / Unknown 09/26/2024 6:35 AM EST 09/26/2024 6:40 AM EST Jah Altman APRN CHEMISTRY ORDERABL ES Performing Organization Address City/[facility]/ZIP Co de Phone Number [facility] [place] [address] * (ABNORMAL) Hepatic Function Panel (09/26/2024 6:35 AM EST) Only the most recent of2 resultswithin the time period is included. Albumin 2.7(L) 3.2 - 5.2 g/dL 09/26/2024 7:19 AM EST [facility] Aspartate Aminotransferase 28 <=30 unit/L 09/26/2024 7:19 AM [facility] Alanine Aminotransferase 72(H) 0 - 30 unit/L 09/26/2024 7:19 AM [facility] Alkaline Phosphatase 81 35 - 105 unit/L 09/26/2024 7:19 AM [facility] Bilirubin, Total 0.4 <=1.3 mg/dL 09/26/2024 7:19 AM [facility] Bilirubin, Direct <0.2 0.0 - 0.3 mg/dL 09/26/2024 7:19 AM [facility] Protein, Total 5.2(L) 6.1 - 8.0 g/dL 09/26/2024 7:19 AM EST [facility] Blood VENOUS BLOOD SPECIMEN / Unknown Venipuncture / Unknown 09/26/2024 6:35 AM EST 09/26/2024 6:40 AM EST Jah Altman APRN CHEMISTRY ORDERABL ES Performing Organization Address City/State/[facility] Co de Phone Number [facility] [place] [address] * Lactate, Whole Blood (09/26/2024 12:31 AM EDT) Lactate, Whole Blood 1.7 0.5 - 2.2 mmol/L 09/26/2024 12:50 AM EDT [facility] Blood VENOUS BLOOD SPECIMEN / Unknown Venipuncture / Unknown 09/26/2024 12:31 AM EDT 09/26/2024 12:46 AM EDT Mariola Calixto MD CHEMISTRY ORDERABL ES [facility] [place] [address] * (ABNORMAL) Urinalysis Microscopic (09/23/2024 10:29 AM EDT) Budding Yeast, Urine Many(A) None /HPF 09/23/2024 11:18 AM EDT [facility] Hyphae Yeast, Urine Many(A) None /HPF 09/23/2024 11:18 AM EDT [facility] RBC, Urine 9(H) 0 - 4 /HPF 09/23/2024 11:18 AM EDT [facility] WBC, Urine 14(H) 0 - 5 /HPF 09/23/2024 11:18 AM EDT [facility] Squamous Epithelial Cells, Urine 2 0 - 5 /HPF 09/23/2024 11:18 AM EDT [facility] Hyaline Casts, Urine 1 0 - 2 /LPF 09/23/2024 11:18 AM EDT [facility] Comment 09/23/2024 11:18 AM EDT [facility] Comment:Interpret results wi th caution, microscopic results are from a suboptimal specimen. Bacteria, Urine Few(A) None /HPF 11:18 AM EDT [facility] Urine URINE SPECIMEN OBTAINED BY CLEAN CATCH PROCEDURE / Unknown Non Blood Collection / Unknown 09/23/2024 10:29 AM EDT 09/23/2024 10:38 AM EDT Mariola Calixto MD URINE ORDERABLES [facility] [place] [address] * Urinalysis Microscopic Exam (09/23/2024 10:29 AM EDT) Urine Non Blood Collection / Unknown 09/23/2024 10:29 AM EDT 09/23/2024 10:38 AM EDT Mariola Calixto MD URINE ORDERABLES [facility] [place] [address] * (ABNORMAL) Urinalysis Dipstick (09/23/2024 10:29 AM EDT) Glucose, Urine Dipstick Negative Negative 09/23/2024 11:18 AM EDT [facility] Protein, Urine Dipstick Negative Negative 09/23/2024 11:18 AM EDT [facility] Bilirubin, Urine Dipstick Negative Negative 09/23/2024 11:18 AM [facility] Comment:Clinical correlation required for positive Urine Bilirubin results as false positive may occur with some drugs and drug related products. If a false positive is suspected a serum total bilirubin should be considered if clinically indicated. Urobilinogen, Urine Dipstick Normal Normal, 0.2 mg/dL, 1.0 mg/dL 09/23/2024 11:18 AM [facility] pH, Urine (dipstick) 6.5 5.0 - 8.0 09/23/2024 11:18 AM [facility] Blood, Urine Dipstick Moderate(A) Negative 09/23/2024 11:18 AM [facility] Ketone, Urine Dipstick Negative Negative 09/23/2024 11:18 AM [facility] Nitrite, Urine Dipstick Negative Negative 09/23/2024 [facility] Leukocytes, Urine Dipstick Small(A) Negative 09/23/2024 11:18 AM [facility] Specific [place] Urine Automated 1.019 1.005 - 1.030 09/23/2024 11:18 AM [facility] Appearance, Urine Dipstick Cloudy(A) Clear 09/23/2024 11:18 AM [facility] Color, Urine Dipstick Yellow Yellow, Dark Yellow 09/23/2024 11:18 [facility] CULTURE ADDED? 09/23/2024 11:18 AM EDT [facility] Urine Non Blood Collection / Unknown 09/23/2024 10:29 AM EDT 09/23/2024 10:38 AM EDT Mariola Calixto MD URINE ORDERABLES Performing Organization Address [facility] Co de Phone Number [facility] [place] [address] * (ABNORMAL) Respiratory Culture, Quantitative (09/23/2024 10:26 AM EDT) Quantitative Bacterial Culture >100,000 CFU/mL Streptococcus anginosus group(A) VITEK 2 METHOD 09/25/2024 8:52 AM EDT [facility] Quantitative Bacterial Culture 50 CFU/mL mixed bacterial morphotypes suggestive of normal upper respiratory franco VITEK 2 METHOD 09/25/2024 8:52 AM EDT [facility] Gram Stain Cytocentrifuge Gram Stain performed(A) 09/25/2024 8:52 AM EDT [facility] Gram Stain neutrophils(A) 09/25/2024 8:52 AM EDT [facility] Gram Stain Moderate Gram negative rods(A) 09/25/2024 8:52 AM EDT [facility] LABORATORY Gram Stain Many Mixed bacterial morphotypes suggestive of normal upper respiratory franco(A) 09/25/2024 8:52 AM EDT [facility] Bronchial Alveolar Lavage STRUCTURE OF LOWER LOBE OF LEFT LUNG / Unknown 09/23/2024 10:26 AM EDT 09/23/2024 11:30 AM EDT Mariola Calixto MD MICROBIOLOGY - GEN ERAL ORDERABLES Performing Organization Address City/[facility]/ZIP Co de Phone Number [facility] [place] [address] * MRSA PCR Screen (09/22/2024 11:43 AM EDT) MRSA PCR Not Detected 09/22/2024 2:13 PM EDT [facility] Swab SPECIMEN FROM NASOPHARYNGEAL STRUCTURE / Unknown Non Blood Collection / Unknown 09/22/2024 11:43 AM EDT 09/22/2024 11:52 AM EDT Narrative [facility] - 09/22/2024 2:13 PM EDT This test was performed using the Xpert MRSA NxG test kit and is run on the [employer] GeneXpert Dx System. This test is cleared by the U.S. Food and Drug Administration for clinical use and its performance characteristics have been verified by the Clinical [facility] at [facility]. This test was performed using the Xpert MRSA NxG test kit and is run on the [employer] GeneXpert Dx System. This test is cleared by the U.S. Food and Drug Administration for clinical use and its performance characteristics have been verified by the Clinical [employer] and [employer] Laboratory at [facility]. Mariola Calixto MD MOLECULAR ORDERABL ES [facility] [place] [place] [address] * XR Abdomen 1 view (Generic) (09/21/2024 2:01 PM EDT) Only the most recent of3 resultswithin the time period is included. WORKSTATION ID [id number] RAD Anatomical Region Laterality Modality Abdomen N/A Digital Radiogra phy Impressions 09/21/2024 3:40 PM EDT Dobbhoff tube and enteric tube sidehole and tip is projecting over the expected location of the stomach. I have personally reviewed the image(s) and the resident's interpretation and agree with the findings, Shraddha Cox MD at 09/21/2024 3:40 PM Thank you for letting us participate in the care of this patient. ??If you are a health care provider and have any questions regarding this report, please contact the number below. ??For patients who have questions please contact the health insurance healthcare representative that requested your imaging first. ? Narrative 09/21/2024 3:40 PM EDT EXAMINATION: XR ABDOMEN 1 VIEW (GENERIC) CLINICAL HISTORY: Verify tube placement (as entered by ordering provider in the order requisition) TECHNIQUE: Portable supine AP view of the left abdomen. ??The upper abdomen, lower abdomen, pelvis, and right lateral margin of the abdomen are excluded from the imaged [id number]. COMPARISON: 09/18/2024 FINDINGS: The lower chest and lower abdomen are not visualized. There is a weighted enteric tube and a second enteric tube with its tip and sidehole projecting over the left upper quadrant over the expected region of the stomach. Visualized bowel segments are air-filled and nondilated. Procedure Note Shraddha Cox MD - 09/21/2024 EXAMINATION: XR ABDOMEN 1 VIEW (GENERIC) CLINICAL HISTORY: Verify tube placement (as entered by ordering providerin the order requisition) TECHNIQUE: Portable supine AP view of the left abdomen. The upper abdomen, lowerabdomen, pelvis, and right lateral margin of the abdomen are excluded from theimaged [id number]. COMPARISON: 09/18/2024 FINDINGS: The lower chest and lower abdomen are not visualized. There is a weighted enteric tube and a second enteric tube with its tipand sidehole projecting over the left upper quadrant over the expected regionof the stomach. Visualized bowel segments are air-filled and nondilated. IMPRESSION Dobbhoff tube and enteric tube sidehole and tip is projecting over theexpected location of the stomach. I have personally reviewed the image(s) and the resident's interpretationand agree with the findings, Shraddha Cox MD at 09/21/2024 3:40 PM Thank you for letting us participate in the care of this patient. If youare a health care provider and have any questions regarding this report,please contact the number below. For patients who have questions please contactthe health insurance healthcare representative that requested your imaging first. Mariola Calixto MD IMG DX ORDERABLES * INTUBATION - ANES ONLY (09/21/2024 1:00 PM EDT) Narrative Dc Young MD - 09/21/2024 1:00 PM EDT Glen Godl MD ? 09/21/2024 ??1:25 PM Emergent Intubation Date/Time: 09/21/2024 1:00 PM Urgency: emergent Reason for Intubation: ?? Procedure Diagnosis: ??respiratory distress (Failed extubation) General Information and Staff Patient location: [facility]U. Performed by: Anesthesiologist: Dc Young MD Resident/MECHANICAL ESTIMATOR: Glen Gold MD Other anesthesia staff: Brad Curtis MD Authorized by: Dc Young MD ?? Consent for Airway Informed consent: ??Not applicable. Pre-Intubation Assessment and Preparation: Mallampati Score: ??III Preoxygenated: yes Sedation Provided: anesthesia Muscle Relaxant Used: ??Muscle relaxant Cricoid Pressure Applied: ??No Mask difficulty assessment: 2 - Vent by mask (+ OA or adjuvant +/- NMBA) Airway Instrumentation Bag/Mask (Kheterpal) Classification: ??2 - Vent by mask (+ OA or adjuvant +/- NMBA) Oral AIrway Used? ??No Nasal Airway Used? ??No Number of attempts: 1 Airway not difficult Airway Details Final airway type: endotracheal tube Successful airway: ETT Cuffed: yes Successful intubation technique: video laryngoscopy Blade: Indirect VIDEO ETT size (mm): 7.5 Placement verified by: chest auscultation and capnometry Measured from: lips ETT to lips (cm): 22 Dc Young MD ANES INPUT W KURTIS Nelson CHGS * INTUBATION (09/21/2024 12:55 PM EDT) Narrative Bonnie Vazquez PA - 09/21/2024 12:55 PM EDT Bonnie Vazquez PA ? 09/21/2024 ??1:12 PM Intubation Procedure Note Reason for Intubation: Airway obstruction and Airway protection. Procedure Diagnosis: Respiratory distress Location of Procedure: NCCU Risks and Benefits: The risks and benefits of this procedure were reviewed and informed consent was obtained obtained. Time Out: Prior to the start of the procedure, the patient's identity, intended procedure, site/side, correct patient positioning and presence of the site keven was confirmed as applicable. The medical history and chart were reviewed to rule out potential contraindications to the planned procedure. Intubation Assessment: III Mallampati assessment Additional Intubation Assessment: Preoxygenation was administered. Bag/mask ventilation was ??difficult Laryngoscope Blade and Size: D blade The endotracheal tube size was 7.5 mm. The tube was cuffed. Common Adjuvant Equipment: A stylet was used. An oral airway was used. Size: 4. A nasal airway was not used. ?? Additional Adjuvant Equipment: Type scope: video [place] Intubation Catheter: no Combitube:no Intubating Laryngeal Mask Airway:none Laryngeal Mask Airway: none IV Medications: 30 mg Etomidate 100 microgram Fentanyl 100 mg Rocuronium Other Medications: none Insertion Attempts: There were 3 attempts Visualization of Vocal Chords: A Grade III view of the vocal cords was observed. Confirmation of Tube Placement: Chest X-ray ordered end tidal CO2 bilateral breath sounds visualization of trachea Status Post Intubation: The patient was hemodynamically stable. Tube secured (at lip or nares): 22 cm Other post intubation status comments: First attempt by this health science writer. Encountered lots of oral secretions with edematous tissue. Pt desaturation event to SpO2 mid 60%. Aborted attempt and initiated 2 person BMV. Initially, difficult to BVM but successful with positioning and OPA use. Due to difficulties, attending Dr. Calixto with second attempt. Again met with copious secretions. Again, pt desaturation event. Aborted attempt and stat airway called. BVM again initiated with improvement in oxygen saturations. Third attempt by Dr. Calixto with anesthesia at bedside, Grade 2 view of cords with visualization of ETT through cords. Saturations remained above 93% during final attempt. ADRIANA Ragland 09/21/2024 Mariola Calixto MD PROCEDURE/MINOR BETH RGICAL ORDERABLES * Duplex Study for DVT, Bilat legs (09/20/2024 11:29 AM EDT) VB Text Report Department: Vascular Surgery Lab Patient: [id number] (LUCERO BRUNO) CPT: 66364 Referring Physician: LIZA LOVE ?? Phone: Indications: ??Immobility, fever; ? DVT Findings: RIGHT: Patent common femoral vein and popliteal vein with spontaneous, respirophasic Doppler waveforms that respond normally to augmentation maneuvers. The common femoral vein, saphenofemoral junction, femoral vein through the thigh and popliteal vein are fully compressible. Patent posterior tibial veins with no evidence of thrombus. Peroneal veins are not adequately visualized to exclude non-occlusive thrombus. LEFT: Patent common femoral vein and popliteal vein with spontaneous, respirophasic Doppler waveforms that respond normally to augmentation maneuvers. The common femoral vein, saphenofemoral junction, femoral vein through the thigh and popliteal vein are fully compressible. Patent posterior tibial and peroneal veins with no evidence of thrombus. Interpretation: RIGHT: ??No evidence of lower extremity deep venous thrombosis. LEFT: ??No evidence of lower extremity deep venous thrombosis. Comparison: ??No previous study in our vascular lab database for comparison. Electronically Signed by: GAVIN HUMPHRIES on 2024-09-22 03:28:01 PM [facility] VB Text Report End of Report [facility] 09/20/2024 11:2 9 AM EDT Liza Love APRN VASCULAR ORDERABLES [facility] * Triglyceride (09/20/2024 12:09 AM EDT) Only the most recent of3 resultswithin the time period is included. Triglyceride 95 mg/dL 09/20/2024 12:51 AM EDT [facility] Comment: Normal: <150 mg/dL Borderline High: 150-199 mg/dL High: 200-499 mg/dL Very High: > or =500 mg/dL Blood VENOUS BLOOD SPECIMEN / Unknown IP Care Team Draw / Unknown 09/20/2024 12:09 AM EDT 09/20/2024 12:14 AM EDT Liza Love APRN CHEMISTRY ORDERABLES [facility] [place] [address] * Lower Respiratory Culture (09/18/2024 2:44 PM EDT) Lower Respiratory Culture Rare mixed bacterial morphotypes suggestive of normal upper respiratory franco 09/20/2024 11:07 AM EDT [facility] Gram Stain Many Neutrophils seen 09/20/2024 11:07 AM EDT [facility] Gram Stain No squamous epithelial cells 09/20/2024 11:07 AM EDT [facility] Gram Stain No microorganisms seen 09/20/2024 11:07 AM EDT [facility] Bronchial Alveolar Lavage SPECIMEN FROM BRONCHUS / Unknown Non Blood Collection / Unknown 09/18/2024 2:44 PM EDT 09/18/2024 3:02 PM EDT Neelam Gill APRN MICROBIOLOGY - GENER AL ORDERABLES Performing Organization Address City/[facility]/ZIP Co de Phone Number [facility] [place] [address] * APTT (09/18/2024 6:15 AM EDT) Only the most recent of7 resultswithin the time period is included. Partial Thromboplastin Time 25 25 - 37 sec 09/18/2024 7:35 AM EDT [facility] Blood VENOUS BLOOD SPECIMEN / Unknown IP Care Team Draw / Unknown 09/18/2024 6:15 AM EDT 09/18/2024 7:05 AM EDT Serenity Espinosa MD HEMATOLOGY ORDERABLE S [facility] [place] [address] * Prothrombin Time (09/18/2024 6:15 AM EDT) Only the most recent of7 resultswithin the time period is included. Prothrombin Time 12.3 9.4 - 12.5 sec 09/18/2024 7:35 AM EDT [facility] International Normalization Ratio 1.1 <=4.9 09/18/2024 7:35 AM EDT [facility] Comment: An INR < 2.0 indicates adequate procoagulant activity for hemostasis in most patients without underlying bleeding disorders, though the INR may not adequately reflect hemostatic capacity in patients with liver disease and synthetic impairment. The recommended target INR range for therapeutic anticoagulation is 2.0 - 3.0 for most applications, though lower and higher ranges may be appropriate depending on clinical circumstances. Blood VENOUS BLOOD SPECIMEN / Unknown IP Care Team Draw / Unknown 09/18/2024 6:15 AM EDT 09/18/2024 7:05 AM EDT Serenity Espinosa MD HEMATOLOGY ORDERABLE S [facility] [place] [address] * Sodium (09/18/2024 6:15 AM EDT) Pathologist [facility] Sodium 142 135 - 145 mMol/L 09/18/2024 2:28 PM EDT [facility] Blood VENOUS BLOOD SPECIMEN / Unknown IP Care Team Draw / Unknown 09/18/2024 6:15 AM EDT 09/18/2024 6:21 AM EDT Neelam Gill APRN CHEMISTRY ORDERABLES [facility] [place] [address] * ECHO LMTD W CONTRAST W LMTD SPEC DOPP COLOR DOPP (09/17/2024 8:18 AM EDT) EF 65 HEARTLAB SYSTEM Anatomical Region Laterality Modality Cardiac Other 09/17/2024 7:35 AM EDT Narrative 09/17/2024 11:18 AM EDT ? Version [address] [place] [id number] ? Echocardiogram Report Name: LUCERO BRUNO ?Study Date: 09/17/2024 07:35 AMBP: 142/68 mmHg : 1950 ? Height: 152 cm ? Account: [id number] Age: 74 yrs ? Weight: 89 kg Gender: Female ?BSA: 1.8 m2 Ordering Physician: DUANE CAUSEY Referring Physician: ILIANA ROSARIO Performed By: USR Reason For Study: Atrial Fibrillation, Watchman Exam Location: [facility]. Interpretation Summary 1. Normal left ventriclar wall thickness, chamber size and systolic function. The left ventricular ejection fraction is 75% by Ruth's biplane. There are no segmental wall motion abnormalities. No thrombus visualized with Definity. 2. Normal right ventricular size and systolic function. 3. No hemodynamically significant valvular abnormalities. Compared to 05/06/2024: Findings are stable Procedure Limited - 81003. Image enhancement Definity was used for left ventricular opacification. Suboptimal quality. There is normal sinus rhythm. Left Ventricle Left ventricle is of normal size. No thrombus visualized with Definity. Left ventricular systolic function is hyperdynamic. Left ventricular ejection fraction is estimated visually at 75%. There are no segmental wall motion abnormalities. Right Ventricle The right ventricle is of normal size. Right ventricular systolic function is hyperdynamic. Left Atrium The left atrium is not well visualized. A 27mm Watchman FLX-Pro is present. No abnormality of the interatrial septum is identified. Aortic Valve The aortic valve is tricuspid. The aortic valve is mildly thickened. There is no aortic stenosis. There is no aortic regurgitation. Mitral Valve The mitral valve is structurally and functionally normal. There is trace mitral regurgitation. Tricuspid Valve The tricuspid valve is structurally and functionally normal. There is trace tricuspid regurgitation. Pulmonic Valve The pulmonic valve is not well visualized. There is trace pulmonic valve regurgitation. Venous Patient is mechanically ventilated. Pericardium/Pleural There is no pericardial effusion. A pericardial fat pad is present. Hemodynamics The peak right ventricular systolic pressure is 20 mmHg. Plus RA presssure. Left ventricular diastolic function is normal. ? 2D Measurements ?IVSd: 1.1 cm ?LVIDd: 2.7 cm ?LVPWd: 1.1 cm ?RWT: 0.77 {ratio} ?LV mass(C)d: 80.8 grams ?LV mass(C)dI: 43.7 grams/m2 Doppler LV V1 VTI: 32.0 cm MV E max radha: 90.6 cm/sec MV A max radha: 109.6 cm/sec MV E/A: 0.83 MV dec time: 0.22 sec Lat Peak E' Radha: 11.5 cm/sec E/e' (lat): 7.9 Med Peak E' Radha: 9.7 cm/sec E/e' (med): 9.4 E/e' Average: 8.6 TR max radha: 223.2 cm/sec I ?WMSI = 1.00 ? % Normal = 100 ?Segments ??Size X - Cannot ?? 1 - Normal ?? 2 - ? 3 - Akinetic 4 - ?1-2 ? small Interpret ? Hypokinetic ?Dyskinetic ?? 3-5 ? moderate 5 - ? 6-14 ?large Aneurysmal ?15-16 ?? diffuse Procedure Note Ceci Newberry MD - 09/17/2024 Version 2 [address] [place] [address] Echocardiogram Report Name: LUCERO BRUNO Study Date: 407:35 AMBP: 142/68 mmHg : 1950 Height: 152 cm Account: [id number] Age: 74 yrs Weight: 89 kg Gender: Female BSA: 1.8 m2 Ordering Physician: DUANE CAUSEY Referring Physician: ILIANA ROSARIO Performed By: EDWIN Reason For Study: Atrial Fibrillation, Watchman Exam Location: [facility]. Interpretation Summary 1. Normal left ventriclar wall thickness, chamber size and systolicfunction. The left ventricular ejection fraction is 75% by Ruth's biplane. There areno segmental wall motion abnormalities. No thrombus visualized withDefinity. 2. Normal right ventricular size and systolic function. 3. No hemodynamically significant valvular abnormalities. Compared to 05/06/2024: Findings are stable Procedure Limited - 237[address]. Image enhancement Definity was used for leftventricular opacification. Suboptimal quality. There is normal sinus rhythm. Left Ventricle Left ventricle is of normal size. No thrombus visualized with Definity.Left ventricular systolic function is hyperdynamic. Left ventricular ejectionfraction is estimated visually at 75%. There are no segmental wall motionabnormalities. Right Ventricle The right ventricle is of normal size. Right ventricular systolic functionis hyperdynamic. Left Atrium The left atrium is not well visualized. A 27mm Watchman FLX-Pro ispresent. No abnormality of the interatrial septum is identified. Aortic Valve The aortic valve is tricuspid. The aortic valve is mildly thickened. Thereis no aortic stenosis. There is no aortic regurgitation. Mitral Valve The mitral valve is structurally and functionally normal. There is tracemitral regurgitation. Tricuspid Valve The tricuspid valve is structurally and functionally normal. There istrace tricuspid regurgitation. Pulmonic Valve The pulmonic valve is not well visualized. There is trace pulmonic valve regurgitation. Venous Patient is mechanically ventilated. Pericardium/Pleural There is no pericardial effusion. A pericardial fat pad is present. Hemodynamics The peak right ventricular systolic pressure is 20 mmHg. Plus RApresssure. Left ventricular diastolic function is normal. 2D Measurements IVSd: 1.1 cm LVIDd: 2.7 cm LVPWd: 1.1 cm RWT: 0.77 {ratio} LV mass(C)d: 80.8 grams LV mass(C)dI: 43.7 grams/m2 Doppler LV V1 VTI: 32.0 cm MV E max radha: 90.6 cm/sec MV A max radha: 109.6 cm/sec MV E/A: 0.83 MV dec time: 0.22 sec Lat Peak E' Radha: 11.5 cm/sec E/e' (lat): 7.9 Med Peak E' Radha: 9.7 cm/sec E/e' (med): 9.4 E/e' Average: 8.6 TR max radha: 223.2 cm/sec I WMSI = 1.00 % Normal = 100 SegmentsSize X - Cannot 1 - Normal 2 - 3 - Akinetic 4 - 1-2small Interpret Hypokinetic Dyskinetic 3-5moderate 5 - 6-14large Aneurysmal 15-16diffuse Duane Lazcano MD ECHO ORDERABLES * Prepare Platelets, Apheresis (09/17/2024 6:07 AM EDT) Status Information Transfused [facility] Product Identification [id number] [facility] Unit Number [id number] [facility] Product Code [id number] [facility] Unit Blood Type APOS [facility] Specimen Expiration Date [id number] [facility] [address] [facility] Issue Date / Time [id number] [facility] Blood 09/16/2024 5:1 2 PM EDT Duane Lazcano MD BLOOD BANK PRODUCT O RDERABLES Performing Organization Address City/[facility]/ZIP Co de Phone Number [facility] [place] [address] * (ABNORMAL) Osmolality (09/17/2024 12:39 AM EDT) Osmolality 309(H) 275 - 295 mOsm/kg 09/17/2024 1:40 AM EDT [facility] Blood VENOUS BLOOD SPECIMEN / Unknown IP Care Team Draw / Unknown 09/17/2024 12:39 AM EDT 09/17/2024 12:54 AM EDT Serenity Espinosa MD CHEMISTRY ORDERABLES Performing Organization Address [facility] Co de Phone Number [facility] [place] [address] * LDL Cholesterol, Direct (09/17/2024 12:39 AM EDT) LDL Cholesterol, Direct 133 mg/dL 09/17/2024 1:26 AM EDT [facility] Comment: Desirable: <100 mg/dL Above Desirable: 100-129 mg/dL Borderline High: 130-159 mg/dL High: 160-189 mg/dL Very High: > or =190 mg/dL If not reaching LDL goals on maximally tolerated statin, consider ezetimibe and/or a PCSK9 inhibitor: ? * Target for primary prevention: LDL<100 ? * Target for those with ASCVD or diabetes and 10-year risk?20%: LDL<70 ? * Target for those with very high risk ASCVD: LDL<55 (Very high risk being the presence of 2 or more of: recent acute coronary syndrome, past ?myocardial infarction, ischemic stroke, symptomatic peripheral artery disease). Blood VENOUS BLOOD SPECIMEN / Unknown IP Care Team Draw / Unknown 09/17/2024 12:39 AM EDT 09/17/2024 12:54 AM EDT Jah Altman SERVICE PORTER CHEMISTRY ORDERABL ES [facility] [place] [address] * HDL/Cholesterol Profile (09/17/2024 12:39 AM EDT) Cholesterol, Total 203 mg/dL 09/17/2024 1:26 AM EDT [facility] Comment: Desirable: < 200 mg/dL Borderline High: 200 - 239 mg/dL High: > or = 240 mg/dL HDL Cholesterol 45 mg/dL 1:26 AM EDT [facility] Comment:Female: High Risk: < 50 mg/dL Non-HDL Cholesterol 158 mg/dL 09/17/2024 1:26 AM EDT [facility] Comment: Desirable: <130 mg/dL Above Desirable: 130-159 mg/dL Borderline High: 160-189 mg/dL High: 190-219 mg/dL Very High: > or = 220 mg/dL Blood VENOUS BLOOD SPECIMEN / Unknown IP Care Team Draw / Unknown 09/17/2024 12:39 AM EDT 09/17/2024 12:54 AM EDT Narrative [facility] - 09/17/2024 1:26 AM EDT It is important to review the results of your lipid panel with your health care provider. You can compare your lipid results to the ranges below and whether they are in the desirable range. These ranges are only meant to be used for people without known cardiac disease, history of stroke, or peripheral vascular disease (blockages in the leg arteries or diabetes). If you have one of these conditions, your desirable LDL-C (bad cholesterol) will likely be even lower. ?? ACC/AHA Guidelines (most recently Jackie main al. [facility] 08/27/22): * For individuals with atherosclerotic cardiovascular disease (ASCVD) or LDL >=190 mg/dL, use a high-intensity statin(40-80 mg atorvastatin or 20-40 mg rosuvastatin with goal >=50% LDL reduction) * For individuals with diabetes, age 40-75 without ASCVD, moderate-intensity statin (goal 30-49% LDL reduction); consider high intensity statin for those with increased risk. * For adults without diabetes or ASCVD, aged 40-75 with LDL 70-189 mg/dL, estimate 10 year ASCVD risk with smartphrase ??.ASCVDRISK ??or Dyn[employer] Decisions. If 10 year risk is 7.5%-19.9% (intermediate risk), consider moderate intensity statin based on risk enhancers and patient preference. Consider coronary artery calcium test (CT)if there is concern regarding the benefit of a statin. If ten year risk is >=20%, initiate high-intensity statin. * Evaluate for secondary causes of Triglycerides >500 mg/dL or LDL >190 mg/dL. * Lifestyle modification is a critical component of ASCVD risk reduction. * If not reaching LDL goals on maximally tolerated statin, consider ezetimibe and/or a PCSK9 inhibitor: ?* Target for primary prevention: LDL<100 ?* Target for those with ASCVD or diabetes and 10-year risk >=20%: LDL<70 ?* Target for those with very high risk ASCVD: LDL<55 (Very high risk being the presence of 2 or more of: recent acute coronary syndrome, past ? myocardial infarction, ischemic stroke, symptomatic peripheral artery disease) Jah Altman APRN CHEMISTRY ORDERABL ES Performing Organization Address City/State/[facility] Co de Phone Number [facility] [place] [address] * (ABNORMAL) Hemoglobin A1c (09/17/2024 12:39 AM EDT) [facility] Hemoglobin A1c 6.1(H) 4.3 - 5.6 % 09/17/2024 1:26 AM EDT [facility] Comment: Per ADA guidelines, without clear symptoms of hyperglycemia or a random plasma glucose >199 mg/dL, a single abnormal A1c measurement cannot be used to diagnose diabetes mellitus. The diagnosis must be confirmed by either 1) a concurrent abnormal fasting plasma glucose or impaired response to oral glucose tolerance testing, or 2) an additional abnormal A1c, impaired fasting plasma glucose, or impaired response to oral glucose tolerance testing on a different day. A1c results obtained on patients with altered red blood cell turnover may not be office machines sales representative of glycemic control. Reference Interval: 4.3 - 5.6% 5.7 - 6.4%: Consistent with prediabetes >=6.5%: Consistent with diagnosis of diabetes mellitus Estimated Average Glucose 09/17/2024 1:26 AM EDT [facility] Comment:Estimated Average Gl ucose not appropriate for patients over 70 years of age. Blood VENOUS BLOOD SPECIMEN / Unknown IP Care Team Draw / Unknown 09/17/2024 12:39 AM EDT 09/17/2024 12:54 AM EDT Narrative [facility] - 09/17/2024 1:26 AM EDT Estimated average glucose (eAG) is calculated from the equation described in: Amari MOSLEY, Wm J, Tyree R, et al. ??Translating the A1C assay into estimated average glucose values. ??Diabetes Care 2008:31(8):2045-7465. Additional resources are available on the ADA website (diabetes.org). Jah Altman APRN CHEMISTRY ORDERABL ES Performing Organization Address [facility] Co de Phone Number [facility] [place] [address] * (ABNORMAL) Glucose (09/17/2024 12:39 AM EDT) Glucose 218(H) 65 - 199 mg/dL 09/17/2024 1:26 AM EDT [facility] Comment:Glucose Concentratio n >=200 mg/dL plus symptoms is consistent with Diabetes Mellitus. Blood VENOUS BLOOD SPECIMEN / Unknown IP Care Team Draw / Unknown 09/17/2024 12:39 AM EDT 09/17/2024 12:54 AM EDT Jah Altman APRN CHEMISTRY ORDERABL ES Performing Organization Address City/[facility]/ZIP Co de Phone [place] [address] * CT Venogram Brain (09/16/2024 11:21 PM EDT) [facility] Signature WORKSTATION ID [id number] RAD Anatomical Region Laterality Modality Head Computed Tomogra phy Impressions 09/17/2024 1:[address] head: 1. ??Interval craniotomy with residual or recurrent hemorrhage right temporal and parietal lobe. 2. ??New hemorrhage right thalamus with new intraventricular extension. 3. ??Persistent but decreased local mass effect, subfalcine, and downward transtentorial herniation. 4. ??Endodontal abscess tooth #6. CTV: Negative CT for deep or superficial venous thrombus. Evidence of active hemorrhage in the right parietal lobe. I Armando Pan MD discussed the results (new right thalamic hemorrhage and evidence of active hemorrhage right parietal) with Sherrie WRIGHT on 09/17/2024 1:12 AM and verified that the results were understood. Thank you for letting us participate in the care of this patient. ??If you are a health care provider and have any questions regarding this report, please contact the number below. ??For patients who have questions please contact the health insurance healthcare representative that requested your imaging first. ? Narrative 09/17/2024 1:42 AM EDT EXAMINATION: CT HEAD WO CONTRAST (GENERIC), CT VENOGRAM BRAIN ? CLINICAL HISTORY: Post op TECHNIQUE: CT head performed without intravenous contrast administration. CT venogram with intravenous contrast material. 65 cc Omnipaque 350 administered intravenously. MIP images created on separate workstation COMPARISON: Noncontrast head CT 1649 hours FINDINGS: CT head noncontrast: Review of bone windows demonstrates interval right-sided craniotomy. There is a drain overlying the craniotomy. Soft tissue swelling overlying the craniotomy. Mastoid air cells and middle ear cavities are clear. Paranasal sinuses are clear. Apical lucency tooth #6 images 21 through 29 of series 8 consistent with endodontal abscess. There is new hemorrhage projecting in the right thalamus with new intraventricular extension of the third and lateral ventricle. There is recurrent or residual hemorrhage projecting in the right temporal and parietal lobe, smaller than the preop exam of 09/16/2024 at 1649 hours. Abnormal low attenuation projects in the right temporal and parietal lobes adjacent to the hemorrhage. There is vasogenic edema in the right hemisphere. Diffuse mass effect right hemisphere with effacement of sulci, effacement of the right lateral ventricle and subfalcine herniation mildly decreased compared to prior exam. Persistent but interval decrease in degree of downward transtentorial herniation and uncal herniation compared to prior exam. Small residual fluid in the extra-axial space overlying the craniotomy. Decrease in focal subdural collection on the right. CTV: Patent appearance of the superior sagittal sinus, bilateral transverse sinus, sigmoid sinus and internal jugular veins. Patent appearance of the inferior sagittal sinus, straight sinus, vein of Erasmo, internal cerebral veins, septal veins and thalamostriate veins. Patent appearance of the basal vein of Josefina bilaterally. Cavernous sinuses opacified bilaterally. There is dense contrast material projecting in the dependent location within the right parietal hemorrhage best seen on axial images 78 through 115 and sagittal image 74 of series 9. Procedure Note Armando Pan MD - 09/17/2024 EXAMINATION: CT HEAD WO CONTRAST (GENERIC), CT VENOGRAM BRAIN CLINICAL HISTORY: Post op TECHNIQUE: CT head performed without intravenous contrast administration. CT venogram with intravenous contrast material. 65 cc Omnipaque 350 administered intravenously. MIP images created onseparate workstation COMPARISON: Noncontrast head CT 1649 hours FINDINGS: CT head noncontrast: Review of bone windows demonstrates interval right-sided craniotomy. Thereis a drain overlying the craniotomy. Soft tissue swelling overlying thecraniotomy. Mastoid air cells and middle ear cavities are clear. Paranasal sinuses are clear. Apical lucency tooth #6 images 21 through 29 of series 8 consistent with endodontal abscess. There is new hemorrhage projecting in the right thalamus with new intraventricular extension of the third and lateral ventricle. There is recurrent or residual hemorrhage projecting in the right temporaland parietal lobe, smaller than the preop exam of 09/16/2024 at 1649 hours. Abnormal low attenuation projects in the right temporal and parietallobes adjacent to the hemorrhage. There is vasogenic edema in the righthemisphere. Diffuse mass effect right hemisphere with effacement of sulci, effacementof the right lateral ventricle and subfalcine herniation mildly decreasedcompared to prior exam. Persistent but interval decrease in degree of downward transtentorial herniation and uncal herniation compared to prior exam. Small residual fluid in the extra-axial space overlying the craniotomy.Decrease in focal subdural collection on the right. CTV: Patent appearance of the superior sagittal sinus, bilateral transversesinus, sigmoid sinus and internal jugular veins. Patent appearance of the inferior sagittal sinus, straight sinus, vein ofGalen, internal cerebral veins, septal veins and thalamostriate veins. Patent appearance of the basal vein of Josefina bilaterally. Cavernous sinuses opacified bilaterally. There is dense contrast material projecting in the dependent locationwithin the right parietal hemorrhage best seen on axial images 78 through 115 andsagittal image 74 of series 9. IMPRESSION CT head: 1. Interval craniotomy with residual or recurrent hemorrhage righttemporal and parietal lobe. 2. New hemorrhage right thalamus with new intraventricular extension. 3. Persistent but decreased local mass effect, subfalcine, and downward transtentorial herniation. 4. Endodontal abscess tooth #6. CTV: Negative CT for deep or superficial venous thrombus. Evidence of active hemorrhage in the right parietal lobe. I Armando Pan MD discussed the results (new right thalamic hemorrhageand evidence of active hemorrhage right parietal) with Sherrie WRIGHT on09/17/2024 1:12 AM and verified that the results were understood. Thank you for letting us participate in the care of this patient. If youare a health care provider and have any questions regarding this report,please contact the number below. For patients who have questions please contactthe health insurance healthcare representative that requested your imaging first. Serenity Espinosa MD [facility] CT ORDERABLES * Prepare RBC (09/16/2024 10:50 PM EDT) Status Information Returned [facility] Product Identification RBC [facility] Unit [facility] [id number] [facility] Product Code [id number] [facility] Unit Blood Type OPOS [facility] Specimen Expiration Date [facility] Volulme 350 [facility] Issue Date / Time [facility] Status Information Returned [facility] Product Identification RBC [facility] Unit Number [id number] [facility] Product [facility] [id number] [facility] Unit Blood Type OPOS [facility] Specimen Expiration Date [facility] Volulme 350 [facility] Issue [facility] / Time [facility] Status Information Returned [facility] Product Identification RBC [facility] Unit Number [id number] [facility] Product [facility] [id number] [facility] Unit Blood Type OPOS [facility] Specimen Expiration Date [facility] Volulme 350 [facility] Issue Date / Time [facility] Blood 09/16/2024 5:3 6 PM EDT Duane Lazcano MD BLOOD BANK PRODUCT O RDERABLES [facility] [place] [address] * (ABNORMAL) Blood Gas, Arterial POC (09/16/2024 8:22 PM EDT) Only the most recent of3 resultswithin the time period is included. pH, Arterial 7.33(L) 7.35 - 7.45 09/17/2024 8:50 AM EDT [facility] PCO2, Arterial 43 35 - 45 mmHg 09/17/2024 8:50 AM [facility] PO2, Arterial 158(H) 85 - 104 mmHg 09/17/2024 8:50 AM [facility] Bicarbonate, Arterial 22.1 20.0 - 26.0 mmol/L 09/17/2024 8:50 AM [facility] Base Excess, Arterial -3.8(L) -3.0 - 3.0 mmol/L 09/17/2024 8:50 AM [facility] Hemoglobin, Arterial 13.7 11.7 - 15.5 g/dL 09/17/2024 8:50 AM [facility] Oxyhemoglobin, Arterial 98.0(H) 94.0 - 97.0 % 09/17/2024 8:50 AM [facility] Carboxyhemoglobin , Arterial 0.5 % 09/17/2024 8:50 AM [facility] Comment: Nonsmokers: 0.5-1.5% COHB ?? Smokers: Variable ??but usually less than 10% ?? Toxic: 20-30% COHB ?? Lethal: Greater than 60% COHB Methemoglobin, Arterial 0.3 <=1.5 % 09/17/2024 8:50 AM [facility] Sodium, Arterial 141 135 - 145 mmol/L 09/17/2024 8:50 AM [facility] Potassium, Arterial 4.1 3.5 - 5.0 mmol/L 09/17/2024 8:50 AM [facility] Chloride, Arterial 104 98 - 107 mmol/L 09/17/2024 8:50 AM [facility] Lactate, Arterial 4.0(HHH) 0.5 - 2.2 mmol/L 09/17/2024 8:50 AM [facility] IONIZED CALCIUM, ARTERIAL 1.18 1.15 - 1.33 mmol/L 09/17/2024 8:50 AM [facility] Glucose, Arterial 165 65 - 199 mg/dL 09/17/2024 8:50 AM EDT [facility] Comment:Glucose Concentratio n >=200 mg/dL plus symptoms is consistent with Diabetes Mellitus. Blood ARTERIAL BLOOD / Unknown 09/16/2024 8:22 PM EDT 09/17/2024 8:50 AM EDT Serenity Espinosa MD POINT OF CARE TEST O RDERABLES [facility] [place] [address] * (ABNORMAL) Surgical Pathology (09/16/2024 7:20 PM EDT) Case Report Surgical Pathology Report ? Case: [id number] ? Authorizing Provider: ??Sushila Espinal MD ? Collected: ? 09/16/20241919 ? Ordering Location: ? Main Operating Room [facility] ?? Received: ?09/16/20242123 ? [facility] ? Hospital ? Pathologist: ? Juanito Frye MD ? Specimen: ?Brain, Right, Right-Sided Infraparenchymal Hemorrhage ? 09/29/2024 12:07 PM [facility] Final Diagnosis A. Right-sided Intraparenchymal hemorrhage,excision: Blood clot, consistent with intraparenchymal hematoma. Cerebral amyloid angiopathy. 09/29/2024 12:07 PM [facility] Discussion Hematoxylin and eosin-stained sections of the specimen show sheets of erythrocytes with admixed leukocytes and fibrin strands. There is no evidence of membrane formation. Small fragments of CORE DRILLER HELPER parenchyma and blood vessels are present in the sample. The blood vessels contain eosinophilic material in their thurman. 09/29/2024 12:07 PM [facility] Additional Studies Block Antibody Result (Positive/Negative) A1,A2 Beta-amyloid Positive. 09/29/2024 12:07 PM [facility] Disclaimer(s) Formalin-fixed, paraffin-embedded tissue sections are studied using the polymer technique with appropriate positive and negative controls. These IHC studies provide the pathologist with adjunctive diagnostic information. Antibody specificity has been verified by testing antibodies on a series of in-house tissues with known immunohistochemical performance characteristics. The clinical interpretation of any antibody positive staining or its absence is evaluated within the context of clinical presentation, morphology, histopathological criteria and other diagnostic tests. 09/29/2024 12:07 PM [facility] Clinical Information A. Brain, Right, Right-Sided Infraparenchymal Hemorrhage *Other - as specified in Clinical Information Dx: R [facility] OR 10 ; [id number] 09/29/2024 12:07 PM [facility] Gross Description A. Brain, Right, Right-Sided Infraparenchymal Hemorrhage. A - Labeled/Fixative: Right sided intraparenchymal hemorrhage, fresh. Quantity/Size: Multiple, 9 x 7 x 4 cm. Tissue Description: Aggregate of blood clot with scant interspersed white tissue. Sections/Processing: Manifest Clerk sections in 2 cassettes labeled A1-A2. sns 09/29/2024 12:07 PM EST [facility] Result Note THIS RESULT REQUIRES PHYSICIAN/LISETH FOLLOW UP(A) 09/29/2024 12:07 PM EST [facility] Tissue BRAIN STRUCTURE / Unknown 09/16/2024 7:20 PM EDT 09/16/2024 9:24 PM EDT Comment:Dx: R [facility] OR 10 ; [id number] Sushila Espinal MD PATHOLOGY/CYTOLOGY O RDERABLES Performing Organization Address City/[facility]/[place] [address] * Green Tube HOLD (09/16/2024 5:07 PM EDT) Green Hold Hold for Add-on 09/16/2024 7:01 PM EDT [facility] Blood VENOUS BLOOD SPECIMEN / Unknown 09/16/2024 5:07 PM EDT 09/16/2024 5:31 PM EDT Duane Lazcano MD CHEMISTRY ORDERABLES Performing Organization Address City/[facility] [place] [address] * CARDIAC CATHETERIZATION (09/16/2024 3:16 PM EDT) Anatomical Region Laterality Modality Other Narrative 09/16/2024 6:52 PM EDT ?[facility] ? Cardiac Catheterization/Intervention Report ? Patient Name: Lucero Bruno. ? Procedure Date: 09/16/2024 ? A #: [id number] ? Primary Physician: Causey, Duane V ? Case #: [id number] ? File Name: [id number] ? Catheterization Order Number: [id number] ? [facility] ? Final Report [place], [place] ? Patient Name: ? Lucero Henriquez. Jerson ? ID#: ?[id number] ? : ?1950 ? Procedure Date: ? September 16, 2024 ? Case #: ? [id number] ? Room: ? 6 ? Case Physicians: ?Duane Causey M.D. ? Start: ?14:12 ?Tl Gamino M.D. ?Admission: ??09/16/2024 ?Dr Chicas M.D. ?Fellow: ? Amari L Sayra, P.A. ? Referring Physician: ??Iliana Rosario APRN ? Procedures: ?* Left Heart Catheterization ?* Right Heart Catheterization ?* Left Atrial Injection ?* Transseptal Puncture ?* Vascular Closure Device Deployment ?* Venous Line / Sheath Insert ?* Endotracheal Intubation By Non-Cath Physician ?* Transesophageal Echo During Cath ?* Anesthesia ?* Left Atrial Appendage Closure ? History ?Lucero Bruno is a 74 year old woman. She has hypertension. The ?patient's smoking status is Former. She also has a history of atrial ?fibrillation/atrial flutter. Prior to the initiation of this procedure, ?the patient was designated as ASA Class III. The CSHA clinical frailty ?scale is 5: Mildly Frail. ? Diagnostic Tests: ?Prior Coronary Angiography: ? LV ejection fraction within 6 months is 75%. ?Electrocardiography: ? EKG was assessed by ECG. ?Medications Prior to Procedure: ? Aspirin and Calcium Channel Blocking Agent. ? Indications for Diagnostic Cath: ?The priority of the diagnostic procedure was Elective. The indication for ?the laborer high density press visit is cardiac arrhythmia. Chest pain symptom assessment ?was: Asymptomatic. ? Technique: ?A 17Fr sheath was inserted in the right femoral vein utilizing the ?Seldinger technique. The left atrium was injected utilizing a 6Fr PIGTAIL ?catheter. Left atrial pressure was performed with a 6Fr ANGLED PIGTAIL ?catheter. Transseptal puncture was performed with an 8.5Fr NeedFeed NRG RF ?Needle. 7,000 units of heparin were administered. A total of 100cc of ?Omnipaque were opened, 77cc of Omnipaque were administered and 23cc of ?Omnipaque were wasted. Radiation: Fluoro time was 11.5 minutes, dose area ?product was 27.20 Gy/cm2 and air kerma was 310 mGY. See the case log for ?additional details. ?The patient received the following medications prior to and during the ?procedure: ? Unfractionated Heparin. ? Hemodynamics: ?Left Heart Pressures ? Resting: ? Syst Diast ? EDP ?a ?v ? m ?LA ? 17 ?17 ?12 ? Left Atrial Appendage closure (ANGUS closure): ?A left atrial appendage closure was performed for atrial fibrillation. ?The patient had a [id number]-GOUr score of 4, a HAS-BLED score of 3, a prior ?history of bleeding and a high risk of falls. The indication for the ?procedure was increased thromboembolic stroke risk, history of major ?bleed, high fall risk and patient preference. ?The left atrial orifice had a maximal width of 20.0 mm determined by MONICA. ?The procedure was performed with general anesthesia. ?Transseptal puncture was performed under fluoroscopy guidance and ?transesophageal echo guidance using an 8.5 Fr VersaCross Transseptal 45 ?degree introducer and VersaCross pigtail RF wire ??needle. ?The left atrial occlusion procedure was performed with fluoroscopy and ?MONICA guidance. An angled pigtail was placed in the left atrial appendage ?and exchanged for a 17 Fr Watchman TruSteer delivery sheath. A Watchman ?FLX Pro 27 mm (s/l/n [id number]) was prepared and deployed using standard ?technique. The device was repositioned. The device met the PASS/CLOSE ?criteria. There was no residual device margin leak. Procedure Comments: ?True Steer watchman delivery system used. ?There were no complications. ?The left atrial occlusion procedure was successful. ? Vascular Access: ?Vascular Access Management: ? A 6 Fr Perclose was deployed at the right femoral vein access site. ? This device was successful. Manual Compression of the right femoral ? vein access site was performed. ? Dual Antiplatelet (DAPT) Recommendations: ?Patient was not on a P2Y12 inhibitor prior to nor was it given in the ?laborer high density press. ?Recommended anti-platelet/anti-thrombotic regimen: ?Continue aspirin 81 mg daily for indefinitely. ?These recommendations are made at the time of the intervention. Patient ?and provider preferences or a changing clinical situation may require ?modification of this regimen. Consult [facility] Interventional Cardiology for ?questions. ? Conclusions: ?* Successful left atrial occlusion procedure ?* See Dual Antiplatelet (DAPT) Recommendations above ? Complications/Events: ?The patient had no complications during these procedures. ? Post Procedure Fluid Recommendations: ?IV fluid at 267 mL/hr for 4 hours for a total of 1,068 mL. These ?recommendations are made at the time of the procedure. Patient and ?provider preferences or a changing clinical situation may require ?modification of this regimen. ?The attending physician was present for the entire procedure. ?Dr. Duane Causey M.D. performed the left heart catheterization, right ?heart catheterization, left atrial injection, transseptal puncture, venous ?line / sheath insert, vascular closure device and ANGUS closure. Dr. Boothe ?Ovidio Gamino performed the transesophageal echo during cath. Dr. Hunt ?Ovidio Chicas performed the intubation-non cath physician and ?anesthesia. ? Duane Causey M.D. ? Electronically Signed by: Duane Causey M.D. ? Report Finalized: 09/16/2024 ??18:48 ? Report Last Ammended: 09/20/2024 ??11:16 ? Procedure Note Duane Causey MD - 09/20/2024 [facility] Cardiac Catheterization/Intervention Report Patient Name: Lucero Bruno Procedure Date: 09/16/2024 A #: [id number] Primary Physician: Duane Causey V Case #: [id number] File Name: [id number] Catheterization Order Number: [id number] [facility] FinalReport [place], [place] Patient Name: Lucero Bruno ID#:[id number] :1950 Procedure Date: September 16, 2024 Case #: [id number] Room: 6 Case Physicians: Daune Causey M.D. Start: 14:12 Tl Gamino M.D. Admission:09/16/2024 Dr Aviva M.D. Fellow: Ghazala Phillip Referring Physician: Iliana Rosario APRN Procedures: * Left Heart Catheterization * Right Heart Catheterization * Left Atrial Injection * Transseptal Puncture * Vascular Closure Device Deployment * Venous Line / Sheath Insert * Endotracheal Intubation By Non-Cath Physician * Transesophageal Echo During Cath * Anesthesia * Left Atrial Appendage Closure History Lucero Bruno is a 74 year old woman. She has hypertension. The patient's smoking status is Former. She also has a history of atrial fibrillation/atrial flutter. Prior to the initiation of thisprocedure, the patient was designated as ASA Class III. The [facility] clinicalfrailty scale is 5: Mildly Frail. Diagnostic Tests: Prior Coronary Angiography: LV ejection fraction within 6 months is 75%. Electrocardiography: EKG was assessed by ECG. Medications Prior to Procedure: Aspirin and Calcium Channel Blocking Agent. Indications for Diagnostic Cath: The priority of the diagnostic procedure was Elective. Theindication for the laborer high density press visit is cardiac arrhythmia. Chest pain symptomassessment was: Asymptomatic. Technique: A 17Fr sheath was inserted in the right femoral vein utilizing the Seldinger technique. The left atrium was injected utilizing a 6FrPIGTAIL catheter. Left atrial pressure was performed with a 6Fr ANGLEDPIGTAIL catheter. Transseptal puncture was performed with an 8.5Fr BaylissNRG RF Needle. 7,000 units of heparin were administered. A total of 100ccof Omnipaque were opened, 77cc of Omnipaque were administered and 23ccof Omnipaque were wasted. Radiation: Fluoro time was 11.5 minutes, dosearea product was 27.20 Gy/cm2 and air kerma was 310 mGY. See the case logfor additional details. The patient received the following medications prior to and duringthe procedure: Unfractionated Heparin. Hemodynamics: Left Heart Pressures Resting: Syst Diast EDP a v m LA 17 17 12 Left Atrial Appendage closure (ANGUS closure): A left atrial appendage closure was performed for atrialfibrillation. The patient had a [id number] score of 4, a HAS-BLED score of 3, aprior history of bleeding and a high risk of falls. The indication for the procedure was increased thromboembolic stroke risk, history of major bleed, high fall risk and patient preference. The left atrial orifice had a maximal width of 20.0 mm determined byTEE. The procedure was performed with general anesthesia. Transseptal puncture was performed under fluoroscopy guidance and transesophageal echo guidance using an 8.5 Fr VersaCross Jpiitwwiwfy63 degree introducer and VersaCross pigtail RF wire needle. The left atrial occlusion procedure was performed with fluoroscopyand MONICA guidance. An angled pigtail was placed in the left atrialappendage and exchanged for a 17 Fr Watchman TruSteer delivery sheath. AWatchman FLX Pro 27 mm (s/l/n [id number]) was prepared and deployed usingstandard technique. The device was repositioned. The device met thePASS/CLOSE criteria. There was no residual device margin leak. ProcedureComments: True Steer watchman delivery system used. There were no complications. The left atrial occlusion procedure was successful. Vascular Access: Vascular Access Management: A 6 Fr Perclose was deployed at the right femoral vein accesssite. This device was successful. Manual Compression of the rightfemoral vein access site was performed. Dual Antiplatelet (DAPT) Recommendations: Patient was not on a P2Y12 inhibitor prior to nor was it given inthe laborer high density press. Recommended anti-platelet/anti-thrombotic regimen: Continue aspirin 81 mg daily for indefinitely. These recommendations are made at the time of the intervention.Patient and provider preferences or a changing clinical situation mayrequire modification of this regimen. Consult [facility] Interventional Cardiologyfor questions. Conclusions: * Successful left atrial occlusion procedure * See Dual Antiplatelet (DAPT) Recommendations above Complications/Events: The patient had no complications during these procedures. Post Procedure Fluid Recommendations: IV fluid at 267 mL/hr for 4 hours for a total of 1,068 mL. These recommendations are made at the time of the procedure. Patient and provider preferences or a changing clinical situation may require modification of this regimen. The attending physician was present for the entire procedure. Dr. Duane Causey M.D. performed the left heart catheterization,right heart catheterization, left atrial injection, transseptal puncture,venous line / sheath insert, vascular closure device and ANGUS closure. Dr.Shawn Hanny M.D. performed the transesophageal echo during cath. Dr. Dr Aviva M.D. performed the intubation-non cath physician and anesthesia. Duane Causey M.D. Electronically Signed by: Duane Causey M.D. Report Finalized: 09/16/2024 18:48 Report Last Ammended: 09/20/2024 11:16 Duane Lazcano MD CARDIAC CATH ORDERAB LES * MONICA W LMTD SPECTRAL DOPPLER COLOR DOPPLER (09/16/2024 3:03 PM EDT) Anatomical Region Laterality Modality Cardiac Other 09/16/2024 1:44 PM EDT Narrative 09/16/2024 3:58 PM EDT ? Transesophageal Echocardiogram Report Name: LUCERO BRUNO ? Study Date: 09/16/2024 01:44 PM ?Patient Location: ^CA06^A : 1950 ? Account: [id number] Age: 74 yrs Gender: Female Ordering Physician: ERI STOVALL Referring Physician: Duane Causey Interpretation Summary Study performed for guidance of Watchman. PRE: No left atrial thrombus. The appendage orifice measured 21 x 16 mm by 3D assessmnent. No PFO. Lipomatous septal hypertrophy. Pericardial fat pad with no pericardial effusion. POST: Watchman well seated without manasa-device leak. See images for compression measurements. No change in appearance of pericardium. Single atrial septostomy with bcdy-sf-kzdsy flow. See report for additional findings. Procedure Complete Guidance Transesophageal echocardiogram, real-time with image documentation (2D) including probe placement, image acquisition, interpretation, and report; Color flow velocity mapping; PW and/or CW doppler display. After suitable sedation by anesthesia, the probe was inserted without difficulty. Standard views were obtained in the transgastric, mid esophageal, and basal planes using a multiplane transesophageal echo probe. Additional evaluation with color flow Doppler and limited spectral Doppler was performed. Patient was continuously monitored throughout the procedure. Provider was in attendance throughout sedation. See Invasive Procedure Log for additional details. There were no complications during the procedure. The study images were of technically good quality. Informed consent from the patient in writing. The risks and benefits of the procedure were explained in detail to the patient, including but not limited to the risk of aspiration, dysphagia, and esophageal perforation. Patient agreed to proceed. Left Ventricle Left ventricular systolic function is normal. Left ventricular ejection fraction is estimated visually at 70%. Right Ventricle The right ventricle is of normal size. Right ventricular systolic function is normal. Left Atrium There is no thrombus in the left atrial appendage. There is lipomatous hypertrophy of the interatrial septum. There is no evidence for a patent foramen ovale. There is a single atrial septostomy site present. Shmv-gg-dzvly flow is present. The appendage orifice measured 21 x 16 mm by 3D quantification. Aortic Valve The aortic valve is structurally and functionally normal. Mitral Valve The mitral valve is structurally normal. There is mild mitral regurgitation. Tricuspid Valve The tricuspid valve is structurally and functionally normal. There is trace tricuspid regurgitation. Pericardium/Pleural There is no pericardial effusion. A pericardial fat pad is present. ? 2D Measurements ?Ao root diam: 3.0 cm Procedure Note Tl Gamnio MD - 09/16/2024 Transesophageal Echocardiogram Report Name: YUNIOR BRUNOAIDE Henriquez Study Date: 09/16/2024 01:44 PM Patient Location: ^CA06^A : 1950 Account:[id number] Age: 74 yrs Gender: Female Ordering Physician: ERI STOVALL Referring Physician: Duane Causey Interpretation Summary Study performed for guidance of Watchman. PRE: No left atrial thrombus. The appendage orifice measured 21 x 16 mm by3D assessmnent. No PFO. Lipomatous septal hypertrophy. Pericardial fat padwith no pericardial effusion. POST: Watchman well seated without manasa-device leak. See images forcompression measurements. No change in appearance of pericardium. Single atrialseptostomy with jgdi-jl-wfpku flow. See report for additional findings. Procedure Complete Guidance Transesophageal echocardiogram, real-time with image documentation (2D) including probe placement, image acquisition,interpretation, and report; Color flow velocity mapping; PW and/or CW doppler display.After suitable sedation by anesthesia, the probe was inserted withoutdifficulty. Standard views were obtained in the transgastric, mid esophageal, andbasal planes using a multiplane transesophageal echo probe. Additional evaluation withcolor flow Doppler and limited spectral Doppler was performed. Patient wascontinuously monitored throughout the procedure. Provider was in attendancethroughout sedation. See Invasive Procedure Log for additional details. There wereno complications during the procedure. The study images were of technicallygood quality. Informed consent from the patient in writing. The risks andbenefits of the procedure were explained in detail to the patient, including but notlimited to the risk of aspiration, dysphagia, and esophageal perforation. Patientagreed to proceed. Left Ventricle Left ventricular systolic function is normal. Left ventricular ejectionfraction is estimated visually at 70%. Right Ventricle The right ventricle is of normal size. Right ventricular systolic functionis normal. Left Atrium There is no thrombus in the left atrial appendage. There is lipomatoushypertrophy of the interatrial septum. There is no evidence for a patent foramenovale. There is a single atrial septostomy site present. Bwog-yw-fbzjq flow is present.The appendage orifice measured 21 x 16 mm by 3D quantification. Aortic Valve The aortic valve is structurally and functionally normal. Mitral Valve The mitral valve is structurally normal. There is mild mitralregurgitation. Tricuspid Valve The tricuspid valve is structurally and functionally normal. There istrace tricuspid regurgitation. Pericardium/Pleural There is no pericardial effusion. A pericardial fat pad is present. 2D Measurements Ao root diam: 3.0 cm Eri Stovall APRN ECHO ORDERABLES * ABORH RECHECK (PATIENT HISTORY FOUND) (09/16/2024 10:29 AM EDT) [facility] ABORH Recheck Progress Complete 09/16/2024 1:01 PM EDT [facility] Blood VENOUS BLOOD SPECIMEN / Unknown Venipuncture / Unknown 09/16/2024 10:29 AM EDT 09/16/2024 10:29 AM EDT Eri Stovall APRN BLOOD BANK LAB ORD ERABLES [facility] [place] [address] * Type and Screen Future Surgery, [facility] SAME DAY PROGRAM ONLY) (09/16/2024 10:29 AM EDT) Pathologist [facility] PATIENT HISTORY Found 09/16/2024 12:02 PM EDT [facility] Expires at [id number] on: 09-19-2024 09/16/2024 12:02 PM EDT [facility] ABORH Type O POSITIVE 09/16/2024 12:02 PM EDT [facility] ANTIBODY SCREEN AUTOMATED Negative 09/16/2024 12:02 PM EDT [facility] T&S only valid at [facility] 09/16/2024 12:02 PM EDT [facility] Blood VENOUS BLOOD SPECIMEN / Unknown Venipuncture / Unknown 09/16/2024 10:29 AM EDT 09/16/2024 10:29 AM EDT Narrative [facility] - 09/16/2024 12:02 PM EDT This Type and Screen result is only valid at the [facility] Hospital Eri Stovall APRN BLOOD BANK LAB ORD ERABLES [facility] [place] [address] * Scan Doc: Implantable Devices (09/16/2024 12:00 AM EDT) Narrative 09/16/2024 12:00 AM EDT Ordered by an unspecified provider. Scanning Provider MEDIA MGR SCAN EXT O RDR/RSLT from Last 3 Months Advance Directives Documents on File Type Date Recorded Patient Manifest Clerk Expl anation Advance Directives and Living Will 10/12/2024 10:45 AM Santos Pollard son * Attempt Cardiopulmonary Resuscitation - Inpatient (Latest Code Status on File) Date Activated Date Inactivated Comments 09/16/2024 5:54 PM 10/12/2024 3:55 PM Question Answer Comments Code Status decision made by: Healthcare Agent ( DPOA) Name (and relationship if needed): Son Content of discussion: GOC * Attempt Cardiopulmonary Resuscitation - Inpatient Date Activated Date Inactivated Comments 09/16/2024 3:24 PM 09/16/2024 5:54 PM Question Answer Comments Code Status decision made by: Patient * Attempt Cardiopulmonary Resuscitation - Inpatient Date Activated Date Inactivated Comments 09/16/2024 12:41 PM 09/16/2024 3:24 PM Question Answer Comments Code Status decision made by: Patient * Attempt Cardiopulmonary Resuscitation - Inpatient Date Activated Date Inactivated Comments 05/06/2024 2:00 AM 05/08/2024 6:05 PM Question Answer Comments Code Status decision made by: Patient Care Teams Dinkey Operator Slag Relationship Specialty Start Date End Date Leila Manjarrez [address] [place] [address] PCP - General Family Medicine 09/09/24
--- OUTSIDE RECORDS SUMMARY | 2024-10-20 17:18 | XMS_ITS | Encounter Summary ---
Author Organization [facility] Address [facility] [address] Care Team Providers Care Records Manager Name Role Phone EvHinaLeila Primary Care Provider [phone] Encounter Details Date Type Department Care Team (Late st Contact Info) Description 10/13/2024 Telephone [place] [address] Val Connor PA [facility] [place] [address] Social History Tobacco Use Types Packs/Day Years Used Date Smoking Tobacco: Former Cigarettes 973 - 2002 Smokeless Tobacco: Never Alcohol Use Standard Drinks/Week Comments Never 0 (1 standard drink = 0.6 oz pur e alcohol) [facility] Utilities Answer Date Recorded In the past 12 months has e electric, gas, oil, or water company [...] money to buy more. Never true 09/17/20 24 Within the past 12 months, t he [...] place to sleep or slept in a care home (including now)? No 03/03/2024 Housing Stability Vital Sign Answer Salvador e Recorded In the last 12 months, was t here a time when you were not able to pay the mortgage or rent on time? No 09/17/2024 In the past 12 months, how m any times have you moved where you were living? 0 09/17/2024 At any time in the past 12 m [facility], were you homeless or living in a care home (including now)? No 09/17/2024 IPV Inpatient Questions [...] on file Sexual Orientation Not on file documented as of this encounter Miscellaneous Notes * Telephone Encounter - Allyssa Sherman - 10/15/2024 8:23 AM EST Images from the original note were not included. Called [facility] Rehab with appointments for 11/15 CT Head and Marvin Kimball Postpone Notification This message was postponed by Allyssa Sherman and returned on Tuesday October 15, 2024. Inpatient Notes Received: 3 days ago Val Connor PA P [facility] Neurosurgery [employer] Grower Hi! This patient is being discharged to rehab from the stroke service today and per the NSGY notes will need follow up in 4 weeks. She already had her stacey removed, I verified before she left. Kaykay has a neurology appointment scheduled with a [facility] on 11/10 so maybe you could tack your follow up on to that? documented in this encounter Plan of Treatment Upcoming Encounters Date Type Department Care Team (Late st Contact Info) Description 11/04/2024 11:15 AM EST Appointment Non-Invasive [place] [address] 11/10/2024 8:00 AM EST Office Visit Neurology at [place] [address] Clarisse Duke APRN [facility] [place] [address] 11/15/2024 10:[address] [place] [address] Karli Morales MD [facility] [place] [address] 11/15/2024 11:20 AM EST Office Visit Neurosurgery at [place] [phone] Marvin Kimball PA [facility] [place] [place] [address] 12/15/2024 4:40 PM EST TH Visit (TeleHealth) Cardiology at [place] [address] Duane Causey MD [facility] [place] [address] documented as of this encounter Visit Diagnoses Not on filedocumented in this encounter Care Teams Records Manager Relationship Specialty Start Date End Date Leila Manjarrez [address] [place] [address] PCP - General Family Medicine 09/09/24 documented as of this encounter
--- OUTSIDE RECORDS SUMMARY | 2024-10-20 17:18 | XMS_ITS | Encounter Summary ---
Author Organization [facility] Address [address] [place] [address] Care Team Providers Care Automatic Spreader Operator Name Role Phone Unavailable Primary Care Provider Unavailabl e Encounter Details Date Type Department Care Team (Late st Contact Info) Description 09/18/1999 13:25 EDT Hospital Encounter [facility] - Other [address] [place] [address] Mauro Angel MD [address] [facility] [address] [place] [address] Unknown, Provider, Social History Tobacco Use Types [...] Info) Description 02/14/2025 14:30 EDT Office Visit [facility] Cardiology Clinic [address] [place], [place] [id number] Hillary Tobin MD [address] [place] [address] [address] [place] [address] documented as of this encounter Visit Diagnoses Not on filedocumented in this encounter
--- OUTSIDE RECORDS SUMMARY | 2024-10-20 17:21 | XMS_ITS | Encounter Summary ---
Author Organization [facility] Address [facility] [place] [address] Care Team Providers Care Stylist Assistant Name Role Phone EvHinaLeila Primary Care Provider [phone] Encounter Details Date Type Department Care Team (Latest Contact Info) Description 10/08/2024 Travel Social History Tobacco Use Types Packs/Day Years Used Date Smoking Tobacco: Former Cigarettes 973 2002 Smokeless Tobacco: Never Alcohol Use Standard Drinks/Week Comments Never 0 (1 standard drink = 0.6 oz pur e alcohol) [facility] Utilities Answer Date Recorded In the [...] place to sleep or slept in a detention (including now)? No 03/03/2024 Housing Stability Vital Sign Answer Salvador e Recorded In the last 12 months, was t here a time when you were not able to pay the mortgage or rent on time? No 09/17/2024 In the past 12 months, how m any times have you moved where you were living? 0 09/17/2024 At any time in the past 12 m [facility], were you homeless or living in a detention (including now)? No 09/17/2024 IPV Inpatient Questions [...] 11:15 AM EST Appointment Non-Invasive Cardiology Lab [place] [phone] 11/10/2024 8:00 AM EST Office Visit Neurology at [place] [phone] Clarisse Duke APRN [facility] [place] [address] 11/15/2024 10:[address] [place] [place] [phone] Karli Morales MD [facility] [place] [address] 11/15/2024 11:20 AM EST Office Visit Neurosurgery at [place] [address] Marvin Kimball PA [facility] [place] [address] 12/15/2024 4:40 PM EST TH Visit (TeleHealth) Cardiology at [place] [phone] Duane Causey MD [facility] [place] [address] documented as of this encounter Visit Diagnoses Not on filedocumented in this encounter Care Teams Stylist Assistant Relationship Specialty Start Date End Date Leila Manjarrez [address] [place] [address] PCP - General Family Medicine 09/09/24 documented as of this encounter
--- OUTSIDE RECORDS SUMMARY | 2024-10-20 17:21 | XMS_ITS | Encounter Summary ---
Author Organization [facility] Address [facility] [place] [address] Care Team Providers Care Process Improvement Analyst Name Role Phone MohsenimanijoelLeila Santamaria Primary Care Provider [phone] Reason for Referral * Diagnostic Test (Routine) - Authorized Specialty Diagnoses / Procedures Referred By Contxiang t Referred To Contact Cardiology Diagnoses Presence of Watchman left atrial appendage closure device Procedures Transesophageal Echocardiogram (MONICA) Duane Causey MD [facility] [address] [facility] [place] [address] Referral ID Status Reason Start Date Expiration Date Visits Requested Visits Authorized [id number] Authorized Specialty Service Requested 4 10/06/2025 1 1 Encounter Details Date Type Department Care Team (Late st Contact Info) Description 10/06/2024 Orders Only Cardiology at [address] [phone] Duane Causey MD [facility] [address] Presence of Watchman left atrial appendage closure device Social History Tobacco Use Types Packs/Day Years Used Date Smoking Tobacco: Former Cigarettes 2 30 1 - 2002 Smokeless Tobacco: Never Alcohol Use Standard Drinks/Week Comments Never 0 (1 standard drink = 0.6 oz pur e alcohol) [facility] Utilities Answer Date Recorded In the [...] place to sleep or slept in a prison (including now)? No 03/03/2024 Housing Stability Vital Sign Answer Salvador e Recorded In the last 12 months, was t here a time when you were not able to pay the mortgage or rent on time? No 09/17/2024 In the past 12 months, how m any times have you moved where you were living? 0 09/17/2024 At any time in the past 12 m [facility], were you homeless or living in a prison (including now)? No 09/17/2024 IPV Inpatient Questions [...] 11:15 AM EST Appointment Non-Invasive Cardiology Lab [place] [address] 11/10/2024 8:00 AM EST Office Visit Neurology at [place] [address] Clarisse Duke APRN [facility] [place] [address] 11/15/2024 10:[address] Scan at [place] [address] Karli Morales MD [facility] [place] [address] 11/15/2024 11:20 AM EST Office Visit Neurosurgery at [address] Marvin Kimball PA [facility] [place] [address] 12/15/2024 4:40 PM EST TH Visit (TeleHealth) Cardiology at [address] Duane Causey MD [facility] [place] [address] Scheduled Orders Name Type Priority Associated Diagnoses Order Schedule Transesophageal Echocardiogram (MONICA) Echocardiography Routine Presence of Watchman left atrial appendage closure device Expected: 10/06/2024 (Approximate), Expires: 04/05/2026 documented as of this encounter Visit Diagnoses Diagnosis Presence of Watchman left atrial appendage closure device documented in this encounter Care Teams Process Improvement Analyst Relationship Specialty Start Date End Date Carince-Leila Bains [address] [place] [address] PCP - General Family Medicine 09/09/24 documented as of this encounter
--- OUTSIDE RECORDS SUMMARY | 2024-10-20 17:21 | XMS_ITS | Encounter Summary ---
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 [place] [address] Referral ID Status Reason Start Date Expiration Date Visits Requested Visits Authorized [id number] Authorized Specialty Service Requested 4 04/11/2026 1 1 * Diagnostic Test (Routine) - Authorized Specialty Diagnoses / Procedures Referred By Contac t Referred To Contact Radiology Diagnoses Severe protein-calorie malnutrition Procedures IR Suture Release oJny Sampson MD [facility] [place] [address] [facility] [place] [address] Referral ID Status Reason Start Date Expiration Date Visits Requested Visits Authorized [id number] Authorized Specialty Service Requested 4 04/03/2026 1 1 * Diagnostic Test (Routine) - Closed Specialty Diagnoses / Procedures Referred By Aicha beckwith Referred To Contact Cardiology Diagnoses Atrial fibrillation, unspecified type Procedures Transesophageal Echocardiogram (MONICA) Duane Causey MD [facility] [place] [address] [facility] [place] [address] Referral ID Status Reason Start Date Expiration Date V isits Requested Visits Authorized [id number] Closed Specialty Service Requested 08/03/2024 08/03/2025 1 1 Reason for Visit * Auth/Cert (Routine) Specialty Diagnoses / Procedures Referred By Aicha beckwith Referred To Contact Diagnoses Atrial fibrillation, unspecified type A fib ANGUS Procedures PRO PERQ CLSR TCAT L ATR APNDGE W/ENDOCARDIAL IMPLNT CARDIAC CATHETERIZATION @PERQ TRANSCATH CLOSURE LEFT ATRIAL APPENDAGE W ENDOCARDIAL IMPLANT, INC RAD S&I (WRVU 14) TRANSESOPHAGEAL ECHO DURING CATH/EP PROCEDURE Duane Causey MD [facility] [place] [address] [facility] Referral ID Status Reason Start Date Expiration Date Visits Re quested Visits Authorized [id number] 1 1 Encounter Details Date Type Department Care Team (Latest Contact Info) Description 09/16/2024 10:06 AM EDT - 10/12/2024 1:50 PM EST Hospital Encounter Neuro Special Care Unit Level 3 [place] [address] Duane Causey MD [facility] [place] [place] [address] Serenity Espinosa MD [facility] [address] Mariola Calixto MD [facility] [place] [address] Librado Patel MD [facility] [address] Dinesh Bauer MD [facility] [place] [address] Gissell Velazco MD [facility] [place] [address] Karli Morales MD [facility] [place] [address] Atrial fibrillation, unspecified type; Presence of Watchman left atrial appendage closure device; Right-sided nontraumatic intracerebral hemorrhage, unspecified cerebral location; Severe protein-calorie malnutrition; S/P craniotomy Discharge Disposition: Shelter Facility Social History Tobacco Use Types Packs/Day Years Used Date Smoking Tobacco: Former Cigarettes 2 1 - 2002 Smokeless Tobacco: Never Alcohol Use Standard Drinks/Week Comments Never 0 (1 standard drink = 0.6 oz pur e alcohol) [facility] Utilities Answer Date Recorded In the past 12 months has [facility] [employer], gas, oil, or water [employer] threatened to shut off services in your [...] place to sleep or slept in a long-term (including now)? No 03/03/2024 Housing Stability Vital Sign Answer Salvador e Recorded In the last 12 months, was t here a time when you were not able to pay the mortgage or rent on time? No 09/17/2024 In the past 12 months, how m any times have you moved where you were living? 0 09/17/2024 At any time in the past 12 m [facility], were you homeless or living in a long-term (including now)? No 09/17/2024 IPV Inpatient Questions [...] 6:00 AM EST Height 152.4 cm (5') 09/16/2024 12:58 PM EDT Body Mass Index 33.4 09/21/2024 6:38 PM EDT documented in this encounter Discharge Summaries * Val Connor PA - 10/12/2024 12:02 PM EST Images from the original note were not included. Discharge Summary Patient Name: Lucero Bruno Patient Age: 74 y.o. Language: Cymro Admit date: 09/16/2024 Discharge date and time: 10/12/2411:59 AM Attending Physician: Karli Morales MD Discharge Physician: Karli Morales MD Follow-up Recommendations for Providers: -Follow up with stroke team scheduled for 11/10 Inpatient Provider Contact Information: For questions regarding this document or issues related to this hospitalization on the Neurology Service, please contact . Discharge Diagnoses: Active Hospital Problems Diagnosis Right occipital hemorrhage with associated vassogenic edema, anticoagulation associated, probableCAA Severe protein-calorie malnutrition Presence of Watchman left atrial appendage closure device S/P craniotomy Past medical History: Past Medical History: Diagnosis Date Irregular heart beat Obstructive sleep apnea Active Non Hospital Problems: Active Non-Hospital Problems Diagnosis Post-operative state Chronic atrial fibrillation History of Presentation: ID: Lucero Bruno is a 74 y.o. female with PMH of R occipital hemorrhage, chronic a-fib presented for watchman procedure. Post operatively at approximately 4:20 pm began complaining of severe 10/10 headache, taken to CTH were an enlarged R IPH with mass effect and midline shift was identified. Stroke alert called. At that time NIHSS 22. SBP in 130s. BG 202. She was subsequently intubated and taken to surgery for Craniotomy with evaluation by neurosurgery followed by admission to NCCU for further monitoring. Course complicated by failed extubation. She was re-extubated on 09/26 and vascular neurology re- engaged for possible downgrade. HPI: Per PACU nurse present at bedside, patient received heparin during the Watchman procedure. After finding that bleed on CT head she was given protamine for reversal. At the time of Initial assessment during stroke alert patient is laying in the CT machine. She is alert tracking and able to follow simple commands. She has left-sided weakness. Right gaze preferenceunable to cross midline to the left. Life safety as well as anesthesia prep were present in the room. Neurosurgery was contacted as well as neurocritical care. Blood pressure was stable. Patient continued to follow commands on the right. Given concern for ability to protect her airway she was intubated in the CT 2. Following my assessment, neurosurgery was discussing possible return to the OR forevacuation versus possible transfer to the neuro ICU. Admission NIH Stroke Scale: NIH Stroke Scale Date 09/16/24 NIH Stroke Scale Time 1645 Level of Consciousness 0 LOC Questions 2 LOC Commands 0 Best Gaze 1 Vision 2 Facial Palsy 0 Motor Arm, Left 4 Motor Arm, Right 0 Motor Leg, Left 4 Motor Leg, Right 0 Limb Ataxia 0 Sensory 2 Best Language 3 Dysarthria 2 Extinction and Inattention: 2 NIH Total Score 22 Hospital Course: Lucero Bruno is a 74 y.o. female who was admitted to the neurology service for further evaluation of 10/10 headache after watchman procedure. Clinical Course/NCCU Course: Post watchman procedure while pt was in PACU she developed severe 10/10 CABA, nausea, and emesis. Shewas heparinized during her procedure and received 20mg of protamine at the time of her CABA, found tohave a large R IPH w/ mass effect and midline shift in CT. At that time she was reportedly alert and following commands, flaccid on the left with a L blown pupil. NSGY was consulted at this time. Shereceived 90g of mannitol and 23.4% then was intubated for airway protection while in CT. She was taken directly to the OR, given 1g of Keppra and 1u of platelets. # R ICH with hematoma evacuation Aubree had her hematoma evacuation on 09/16. Post craniotomy patient was following commands on her RUE/ RLE, answering questions yes/ no via finger commands, had a CN III deficit LEFT eye, and LUE/ LLE briskly withdrew to pain. # Hypoxic respiratory failure after extubation 09/21: Extubation was considered on 09/19 but deferred to fluid overload and protuberant tongue for which 48 hours of steroids were administered. Trial of extubation performed on 09/21 which resulted in rather flagrant inability to protect airway necessitating reintubation. Intubation proved challenging and required multiple attempts with multiple providers with ultimately anesthesia obtaining a secure airway with a 7.5 ET tube using video laryngoscopy. The oropharynx was notably edematous with pooling secretions but ultimately a grade 2 view was obtained by anesthesia. Steroids were started for airway edema. Notably, cough was weak after extubation and bulbar function otherwise was unable to fully be assessed before urgent re-intubation. On 09/26 Aubree was extubated to 4 LPM nasal canula. She washypophonic and required moderate degrees of oral suctioning but improved thereafter. #Marked leukocytosis #Possible aspiration PNA Patient had progressive leukocytosis reaching 39K on 09/27. Infectious disease consulted. Zosyn started empirically. Infection work-up so far unrevealing except for tracheal aspirate with streptococcus anginosus. WBC started to trend down on 09/28. Patient subsequently transferred to vascular neurology service 09/28. Cerebrovascular Service course: # R ICH with hematoma evacuation Neurological examination on admission was pertinent for left upper extremity weakness, expressive aphasia, eyelid apraxia as well as left sided neglect vs. sensory loss. Patient was monitored with frequent checks of vitals and neurological status. Telemetry monitoring showed NSR. Strict BP control with labetalol administered prn for SBP > goal parameters. MRI demonstrated large right sided IPHin the frontal, parietal, and temporal lobes and thalamus as well as numerous small infarctions bilaterally. Vascular imaging not indicated. TTE revealed normal LV size and function with EF 75% and no WMA or thrombus visualized. See detailed reports as below. Most likely etiology of stroke was periprocedural due to CAA and need of anticoagulation during procedure. #Hospital Acquired Pneumonia CXR on 09/21 showed left basilar opacity and pt had increased oxygen demands. ID was consulted, blood cultures obtained, empiric Zosyn was started and BAL cultures grew strep angiosis. Zosyn discontinued on 09/30 after 7 days. White count decreased in response to antibiotics and blood cultures from 09/26 showed no growth. #e coli UTI Pt had an increasing white count and self reported dysuria. UA 10/09 positive for LE, nitrates. Cefepime was started empirically 10/10. Ucx w/ e coli and ornintholytica. Abx narrowed to bactrim for atotal of 7 days of therapy on DC. #Dysphagia PEG tube placed on 10/04. Patient tolerated well and was transitioned to tube feeds. Pt went for scheduled suture release with IR 10/12. On 10/12 tube feed/ serous appearing drainage was noted from PEG site. Opted to continue to monitor given resolved leukocytosis, no recent fevers, no abdominal pain on palpation. If concerns for infection arise, CT abdomen and pelvis recommended, but likely fromreflux of bolus TF. Patient was evaluated by rehabilitation services and deemed appropriate for acute. Operations & Procedures: craniotomy, PEG Consultations: 1. PT/OT/SL 3. NSGY Diagnostic Tests & Neuroimaging: Study Results ECG Component Ref Range & Units 2 d ago 2 wk ago Ventricular rate BPM 104 75 Atrial Rate BPM 104 75 P-R Interval ms 138 164 QRS Duration ms 64 72 Q-T Interval ms 342 400 QTC Calculated (Bezet) ms 449 446 Calculated P [place] degrees 44 36 Calculated R [place] degrees -22 -17 Calculated T [place] degrees 34 28 INTERPRETATION Sinus tachycardia with Premature atrial complexes Low voltage QRS Cannot rule out Anterior infarct , age undetermined Abnormal ECG When compared with ECG of 16-SEP-2024 15:33, Premature atrial complexes are now Present Confirmed by MD Domingo Jon ([id number]) on 09/28/2024 2:49:44 PM Normal sinus rhythm Normal ECG When compared with ECG of 16-SEP-2024 13:08, No significant change was found Confirmed by MD Ruggiero Jonathan C. ([id number]) on 09/19/2024 9:11:06 AM CXR XR Chest One View Result Date: 10/06/2024 Improved but persistent retrocardiac patchy opacity which is favored to represent atelectasis although underlying acute infectious/inflammatory process cannot be excluded. I have personally reviewed the image(s) and the resident's interpretation and agree with the findings, MICHELLE ARSHAD MD at112/06/2023 3:00 PM Thank you for letting us participate in the care of this patient. If you are a health care provider and have any questions regarding this report, please contact the number below. For patients who have questions please contact the health ocular care technician that requested your imaging first. Electronically signed by: MICHELLE ARSHAD MD, [facility] ([phone]), at 3:00 PM XR Chest One View Result Date: 09/30/2024 1. Limited examination. 2. Stable position of medical hardware. 3. The lung volumes are decreased, which accentuates the pulmonary vascular markings and cardiac silhouette. 4. Accounting for this, a stable mild component of congestive heart failure / fluid overload is suspected. 5. Stable moderate c ardiomegaly. 6. Possible inferior subluxation of the left humerus. Correlation with patient symptomatology is recommended. If clinically indicated, further evaluation with dedicated left shoulder radiographs can be obtained. Thank you for letting us participate in the care of this patient. If you are a health care provider and have any questions regarding this report, please contact the number below. For patients who have questions please contact the health ocular care technician that requested yourimaging first. Electronically signed by: Marvin Decker DO [facility] ([phone]), at 09/30/2024 12:49 AM XR Chest One View Result Date: 09/28/2024 1. Slightly increased opacity in the left lower lung which may be due to atelectasis, aspiration orpneumonia. 2. Small bilateral pleural effusions. Thank you for letting us participate in the care of this patient. If you are a health care provider and have any questions regarding this report, please contact the number below. For patients who have questions please contact the health ocular care technician that requested your imaging first. Electronically signed by: Sammy Story MD, [facility] ([phone]), at 09/28/2024 8:09 PM XR Chest One View Result Date: 09/28/2024 1. Limited examination. 2. Interval removal of the endotracheal catheter. 3. Stable position of other medical hardware. 4. Decreased but persistent patchy left retrocardiac airspace opacity, may be resolving atelectasis or pneumonia. Thank you for letting us participate in the care of this patient.If you are a health care provider and have any questions regarding this report, please contact the number below. For patients who have questions please contact the health ocular care technician that requested your imaging first. Electronically signed by: Marvin Decker DO [facility] ([phone]), at 09/28/2024 4:12 AM XR Chest One View Result Date: 09/21/2024 ET tube with tip projecting approximately 1.4 cm above the jonathan. Recommend retracting approximately 2 cm and follow-up imaging. New left basilar atelectasis and/or small pleural effusion. Aspiration or pneumonia could also this appearance. I Sacha Shipley MD discussed the results (Impression #1) with Bonnie Vazquez on 09/21/2024 4:42 PM and verified that the results were understood. I have personally reviewed the image(s) and the resident's interpretation and agree with the findings, Octavio Scott MD at 09/21/2024 5:09 PM Thank you for letting us participate in the care of this patient.If you are a health care provider and have any questions regarding this report, please contact the number below. For patients who have questions please contact the health ocular care technician that requested your imaging first. Electronically signed by: Octavio Scott MD, [facility] ([phone]), at 09/21/2024 5:09 PM XR Chest One View Result Date: 09/18/2024 Tubes and lines as described. Blunting of the left costophrenic angle suggests tiny layering left effusion with associated left basilar consolidation/atelectasis Thank you for letting us participate in the care of this patient. If you are a health care provider and have any questions regarding thisreport, please contact the number below. For patients who have questions please contact the health ocular care technician that requested your imaging first. Chest One View Result Date: 09/17/2024 1. No focal opacity in lung 2. Pulmonary edema, progressed since last examination. 3. Tip of ET tube is 23 mm superior cuff to jonathan. Consider adjustment. 4. Sidehole and tip of NG tube is below thediaphragm. Thank you for letting us participate in the care of this patient. If you are a health care provider and have any questions regarding this report, please contact the number below. For patients who have questions please contact the health ocular care technician that requested your imaging first. Electronically signed by: Zoey Zabala MD, [facility] ([phone]), at 09/17/2024 2:43 PM XR Chest One View Result Date: 09/17/2024 Satisfactorily positioned enteric and endotracheal tubes. Left lower lobe atelectasis versus pneumonia. Thank you for letting us participate in the care of this patient. If you are a health care provider and have any questions regarding this report, please contact the number below. For patients whohave questions please contact the health ocular care technician that requested your imaging first. Electronically signed by: Pamela Beard MD, [facility] ([phone]), at 09/17/2024 12:[address] Head wo Contrast (Generic) Result Date: 10/07/2024 1. Interval decreased prominence of RIGHT parenchymal hemorrhage with unchanged RIGHT holohemispheric mass effect and RIGHT to LEFT midline shift. 2. No new hemorrhages. I have personally reviewed the image(s) and the resident's interpretation and agree with the findings, Domingo Puentes at 10/07/2024 4:11 PM Thank you for letting us participate in the care of this patient. If you are a health care provider and have any questions regarding this report, please contact the number below. For patients who have questions please contact the health ocular care technician that requested your imaging first. Electronically signed by: Domingo Puentes [facility] ([phone]), at 10/07/2024 4:[address] Head wo Contrast (Generic) Result Date: 10/04/2024 1. Overall interval improvement of the mass effect on the right hemisphere with evolution of blood products within the parenchyma post craniotomy. 2. Mild interval increase in extra-axial fluid inferior margin of the craniotomy. 3. Mild interval increase in size of third and lateral ventricles as well as peripheral CSF spaces 4. No new hemorrhage or infarction Thank you for letting us participatein the care of this patient. If you are a health care provider and have any questions regarding this report, please contact the number below. For patients who have questions please contact the healthcare professional that requested your imaging first. Electronically signed by: Armando Pan MD, [facility] ([phone]), at 10/04/2024 2:[address] Head wo Contrast (Generic) Result Date: 09/26/2024 1. Stable right-sided parenchymal and subdural hemorrhages, associated mass effect and midline shift. 2. Stable left intraventricular hemorrhage. 3. No new or enlarging hemorrhages or extra-axial collections. Thank you for letting us participate in the care of this patient. If you are a health careprovider and have any questions regarding this report, please contact the number below. For patients who have questions please contact the health ocular care technician that requested your imaging first. Electronically signed by: Smiley Cordova MD, [facility] ([phone]), at 09/26/2024 2:[address] Head wo Contrast (Generic) Result Date: 09/22/[address] status post removal of subcutaneous drain. No new or enlarging hemorrhage. Stable pattern of mass effect Thank you for letting us participate in the care of this patient. If you are a health care provider and have any questions regarding this report, please contact the number below. For patients who have questions please contact the health ocular care technician that requested your imaging first. Electronically signed by: Armando Pan MD, [facility] ([phone]), at 09/22/2024 4:[address] Head wo Contrast (Generic) Result Date: 09/21/2024 Stable hemorrhage right temporal, parietal, right posterior limb internal capsule and right thalamus. Mild progression of vasogenic edema adjacent to hemorrhage. Similar pattern and extent of local and generalized mass effect with stable subfalcine herniation and uncal herniation. Thank you for letting us participate in the care of this patient. If you are a health care provider and have any questions regarding this report, please contact the number below. For patients who have questions pleasecontact the health ocular care technician that requested your imaging first. Electronically signed by: Armando Pan MD, [facility] ([phone]), at 09/21/2024 4:[address] Head wo Contrast (Generic) Addendum Date: 09/17/2024 --------ADDENDUM #1-------- The Workflow Coordinator spoke with Agapito Tyson NP on 09/17/2024 8:50 AM to relay the results. Thank you for letting us participate in the care of this patient. If you are a health care provider and have any questions regarding this report, please contact the number below. For patients who have questions please contact the health ocular care technician that requested your imaging first. Electronically signed by: Elvin Bolden DO [facility] ([phone]),at 09/17/2024 8:55 AM --------ORIGINAL REPORT -------- EXAMINATION: CT HEAD WO CONTRAST (GENERIC) CLINICAL HISTORY: post crani for hemorrhage TECHNIQUE: CT head performed without intravenous contrast administration utilizing dual-energy technique with degeneration of virtual noncontrast images. COMPARISON: 09/16/[address]/CTV 2321 hours FINDINGS: Volume of the dominant right sided parietal hematoma has increased in size and density (example coronal image 43, series 5 at 4.5 x 3.6 cm, previously 4.1 x 2.8 cm). Hemorrhage dissecting into the posterior gangliocapsular tissue has also increased in size slightly. Posterior right parieto-occipital hematoma is similar. Hemorrhagic foci within the right thalamocapsular region is stable. The volume of intraventricular hemorrhage is stable, without interval ventricular dilation. Sulcal/CSF effacement over the right hemisphere is similar, with s imilar leftward midline and mild subfalcine cingulate herniation. There is no acute confluent ischemic infarct. No no interval osseous or extra cranial findings status post craniotomy changes with mild pneumocephalus. Thin extracerebral hemorrhage along the craniotomy is stable. IMPRESSION: Increased size and density of dominant right parietal hematoma, and of hemorrhage extending medially into the basal ganglia. Foci of thalamocapsular hemorrhage on the right are stable. No evidence of progressive intraventricular hemorrhage or ventricular dilation. No definitive increase in leftward midlineshift or herniation. Thank you for letting us participate in the care of this patient. If you are [facility] provider and have any questions regarding this report, please contact the number below.For patients who have questions please contact the health ocular care technician that requested your imaging first. Electronically signed by: Elvin Bolden DO [facility] ([phone]), at 8:38 AM Addendum Date: 09/17/2024 --------ADDENDUM #1-------- The Workflow Coordinator spoke with Agapito Tyson NP on 09/17/2024 8:50 AM to relay the results. --------ORIGINAL REPORT -------- EXAMINATION: CT HEAD WO CONTRAST (GENERIC) CLINICAL HISTORY: post crani for hemorrhage TECHNIQUE: CT head performed without intravenous contrast administration utilizing dual-energy technique with degeneration of virtual noncontrast images.COMPARISON: 09/16/[address]/CTV 2321 hours FINDINGS: Volume of the dominant right sided parietalhematoma has increased in size and density (example coronal image 43, series 5 at 4.5 x 3.6 cm, previously 4.1 x 2.8 cm). Hemorrhage dissecting into the posterior gangliocapsular tissue has also increased in size slightly. Posterior right parieto-occipital hematoma is similar. Hemorrhagic foci within the right thalamocapsular region is stable. The volume of intraventricular hemorrhage is stable, without interval ventricular dilation. Sulcal/CSF effacement over the right hemisphere is similar, with similar leftward midline and mild subfalcine cingulate herniation. There is no acute confluent ischemic infarct. No no interval osseous or extra cranial findings status post craniotomy changes with mild pneumocephalus. Thin extracerebral hemorrhage along the craniotomy is stable. IMPRESSION: Increased size and density of dominant right parietal hematoma, and of hemorrhage extending medially into the basal ganglia. Foci of thalamocapsular hemorrhage on the right are stable. No evidence of progressive intraventricular hemorrhage or ventricular dilation. No definitive increase in leftward midline shift or herniation. Thank you for letting us participate in the care of this patient. If you are a health care provider and have any questions regarding this report, please contact the number below. For patients who have questions please contact the health ocular care technician that requested yourimaging first. Electronically signed by: Elvin Bolden DO [facility] ([phone]), at 09/17/2024 8:38 AM Result Date: 09/17/2024 Increased size and density of dominant right parietal hematoma, and of hemorrhage extending medially into the basal ganglia. Foci of thalamocapsular hemorrhage on the right are stable. No evidence ofprogressive intraventricular hemorrhage or ventricular dilation. No definitive increase in leftwardmidline shift or herniation. Thank you for letting us participate in the care of this patient. If you are a health care provider and have any questions regarding this report, please contact the number below. For patients who have questions please contact the health ocular care technician that requested your imaging first. Electronically signed by: Elvin Bolden DO, [facility] ([phone]), at 09/17/2024 8:[address] Head wo Contrast (Generic) Result Date: 09/17/2024 CT head: 1. Interval craniotomy with residual or recurrent hemorrhage right temporal and parietal lobe. 2. New hemorrhage right thalamus with new intraventricular extension. 3. Persistent but decreased local mass effect, subfalcine, and downward transtentorial herniation. 4. Endodontal abscess tooth #6. CTV: Negative CT for deep or superficial venous thrombus. Evidence of active hemorrhage in theright parietal lobe. I Armando Pan MD discussed the results (new right thalamic hemorrhage and evidence of active hemorrhage right parietal) with Sherrie WRIGHT on 09/17/2024 1:12 AM and verified that the results were understood. Thank you for letting us participate in the care of this patient. If you are a health care provider and have any questions regarding this report, please contact the number below. For patients who have questions please contact the health ocular care technician that requested your imaging first. Electronically signed by: Armando Pan MD, [facility] ([phone]), at 09/17/2024 1:[address] Head wo Contrast (Generic) Result Date: 09/16/2024 Interval expansion of now large right-sided temporal occipital intraparenchymal hemorrhage with significant mass effect resulting in 1 cm leftward midline shift. Per chart review, this patient was seen by neurosurgery and taken emergently to the OR. I have personally reviewed the image(s) and the resident's interpretation and agree with the findings, Lana Reinoso at 09/16/2024 6:01 PM Thank you for letting us participate in the care of this patient. If you are a health care provider and have any questions regarding this report, please contact the number below. For patients who have questions please contact the health ocular care technician that requested your imaging first. Electronically signedby: Lana Reinoso [facility] ([phone]), at 09/16/2024 6:01 PM MRA Head and Neck No results found. MRI BRAIN MRI Brain wwo Contrast (Generic) Result Date: 10/05/2024 1. Fluid collections in the right parietal lobe now showing some restricted diffusion, question abscess formation or hemorrhage. Fluid in the collections projecting deep to the craniotomy and at the margin of the craniotomy with restricted diffusion suggesting abscess formation or hemorrhage. 2. Fluid collections in the extra-axial space and adjacent to the craniotomy. These do not appear to demonstrate restricted diffusion and may represent a meningocele formation. 3. Interval decrease in masseffect compared to MRI of 09/19/2024. Thank you for letting us participate in the care of this patient. If you are a health care provider and have any questions regarding this report, please contact the number below. For patients who have questions please contact the health ocular care technician that requested your imaging first. Electronically signed by: Armando Pan MD, [facility] ([phone]), at 10/05/2024 12:31 AM MRI Brain wwo Contrast (Generic) Result Date: 09/20/2024 Unchanged size of large right cerebral hemisphere ICH status post partial evacuation. Numerous small foci of decreased acute infarction both along and separate from the site of hemorrhage. These fociare present in both cerebral hemispheres and have a pattern most consistent with embolic infarction. No evidence of AUTOMOBILE DESIGNER malignancy Thank you for letting us participate in the care of this patient. Ifyou are a health care provider and have any questions regarding this report, please contact the number below. For patients who have questions please contact the health ocular care technician that requested your imaging first. Electronically signed by: Rios Swartz MD, [facility] ), at 09/20/2024 8:24 AM CTA Carotids/[place] No results found. TTE Interpretation Summary 1. Normal left ventriclar wall thickness, chamber size and systolic function. The left ventricular ejection fraction is 75% by Ruth's biplane. There are no segmental wall motion abnormalities. No thrombus visualized with Definity. 2. Normal right ventricular size and systolic function. 3. No hemodynamically significant valvular abnormalities. Compared to 05/06/2024: Findings are stable Carotid Duplex NA Duplex study for DVT, bilat legs Findings: RIGHT: Patent common femoral vein and [...] with no evidence of thrombus. Interpretation: RIGHT: No evidence of lower extremity deep venous thrombosis. LEFT: No evidence of lower extremity deep venous thrombosis. Comparison: No previous study in our vascular lab database for comparison. Labs: Lipid Panel Lab Results Component Value Date CHLPL 203 09/17/2024 CHLPL 135 05/06/2024 HDL 45 09/17/2024 HDL 46 05/06/2024 TRIG 95 09/20/2024 TRIG 101 05/06/2024 LDLCHOL 69 05/06/2024 LDLDIRECT 133 09/17/2024 Lab Results Component Value Date HA1C 6.1 (H) 09/17/2024 Pending Studies and Lab Data: The patient will need the following test completed on: 08/03/2024 1. XR Shoulder Left (Generic) Diagnosis: Authorizing Provider: Karli Morales MD PT Eval: AM-PAC Mobility 6 Click Completed?: Yes Turning from your back to your side while in a flat bed w/o using handrails?: 2 - A Lot Standing up from a chair using your arms (e.g. wheelchair, or bedside commode)?: 1 - Unable Moving from lying on your back to sitting on the side of a flat bed w/o using bedrails?: 1 - Unable Moving to and from a bed to a chair (including a wheelchair): 1 - Total To walk in hospital room?: 1 - Total Climbing 3-5 steps with a railing?*: 1 - Total Anticipated Discharge Disposition (PT): jail facility OT Eval: How much help from another person does the patient currently need putting on and taking off regularlower body clothing?: 1 - Total How much help from another person does the patient currently need with bathing (including washing, rinsing, drying)?: 1 - Total How much help from another person does the patient currently need with toileting, which includes using toilet, bedpan or urinal?: 1 - Total How much help from another person does the patient currently need putting on and taking off regularupper body clothing?: 2 - A Lot How much help from another person does the patient currently need taking care of personal grooming such as brushing teeth?: 2 - A Lot How much help from another person does the patient currently need eathing meals?: 1 - Total Anticipated Discharge Disposition (OT): jail facility CUTTER AND EDGE TRIMMER: Cleared for sravani with medclyde crushed 10/11 Vital Signs at Discharge: BP: 123/50, Heart Rate: 98, Temp: 36.5 ??C (97.7 ??F), Resp: 20, BMI (Calculated): 38.08 Height: 152.4 cm (5') (09/16/24 1258) Weight: 77.6 kg (171 lb) (10/11/24 0600) Physical Exam at Discharge: General: INAD HEENT: craniotomy site w/out stacey Neck: Full AROM CV: Regular rate, regular rhythm, normal S1/S2, no M/R/G. Lungs: CTA bilaterally, no rales, no wheezing. Abd: Soft, NT, ND. NABS throughout. PEG tube site with some serous/ TF appearing drainage. No tenderness on palpation. Ext: No gross deformities noted. No clubbing, cyanosis, or edema. Skin: Warm and dry. No visible rashes. Neuro: CN - PERRL, right gaze preference but crosses midline, VFF vs LLQ cut? MOTOR - LUE/LLE 0/5, R side anti gravity SENSATION - intact sensation on right, denies light touch on the left COORDINATION - FTN intact on RUE GAIT - not assessed Discharge NIH Stroke Scale NIH Stroke Scale Date 10/12 NIH Stroke Scale Time 1645 Level of Consciousness 0 LOC Questions 0 LOC Commands 0 Best Gaze 1 Vision 1 Facial Palsy 2 Motor Arm, Left 4 Motor Arm, Right 0 Motor Leg, Left 4 Motor Leg, Right 0 Limb Ataxia 0 Sensory 2 Best Language 0 Dysarthria 1 Extinction and Inattention: 2 NIH Total Score 17 Discharge to: jail facility Updated Allergies/ADRs: Allergies Allergen Reactions Oxycodone-Acetaminophen Other (See Comments) Other reaction(s): hallucinations Alendronate Sodium Nausea Only Contact Metal Agent Immunizations Given this Hospitalization: Immunization History Administered Date(s) Administered Covid-19 Bivalent (Moderna Spikevax) 6mo+ (Age based Dosage) (4154-8850) 10/29/2023 Covid-19 Monovalent (Moderna Spikevax) 12yrs+ (5471-1806) 04/16/2022 Influenza Vaccine, Whole 11/11/2008 Discharge Medications: Your Medications New Medications Dose Details amLODIPine 5 mg tablet Commonly known as: Norvasc Take 1 tablet by mouth daily. 5 mg Refills: 0 diclofenac 1 % Gel Commonly known as: Voltaren Apply 2 g topically 4 times daily as needed. 2 g Refills: 0 ipratropium-albuteroL 0.5 mg-3 mg(2.5 mg base)/3 mL Solution for Nebulization Commonly known as: Duoneb Take 0.5 mg by nebulization every 4 hours. 3 mL Refills: 0 pantoprazole 40 mg Recon Soln Commonly known as: Protonix Inject 10 mLs into the vein daily. 40 mg Refills: 0 sulfamethoxazole-trimethoprim DS 800-160 mg tablet Commonly known as: Bactrim DS Take 1 tablet by mouth 2 times daily for 4 days. 1 tablet Refills: 0 traZODone 50 mg tablet Commonly known as: Desyrel Take 1 tablet by mouth nightly. 50 mg Refills: 0 Continued medications, unchanged Dose Details acetaminophen 325 mg tablet Commonly known as: Tylenol Take 2 tablets by mouth every 6 hours as needed for Pain. 650 mg Refills: 0 cholecalciferoL 1,000 unit tablet Commonly known as: Vitamin D3 Take 1,000 Units by mouth Daily. 1,000 Units Refills: 0 dilTIAZem CD 300 mg CD (ER) 24 hr casule Commonly known as: Cardizem CD Take 1 capsule by mouth daily. 1 capsule Refills: 0 STOPPED Medications aspirin EC 81 mg EC (DR) tablet traMADoL 50 mg tablet Commonly known as: Ultram SECONDARY STROKE PREVENTION: Preventative measure Antithrombotic Therapy Administered within 2 days of admission?: No Reason for not administering Antithrombotic Therapy by end of Day 2:: Patient has an active bleed Was antithrombotic therapy prescribed at discharge?: NoAvoiding AC/AP Anticoagulation Therapy Prescribed at Discharge?: No Reason not given (anticoagulant):: Risk for bleeding or discontinued due to bleeding Was statin medication prescribed at discharge?: No Was Guideline Recommended Statin Dose Prescribed at Discharge?: No Reason for not prescribing Guideline recommended dose: Other (specify in comments) Has patient had a cigarette within the last 365 days?: No Education: Patient/caregiver received written stroke discharge instructions/information?Yes The patient/caregiver accepted education on stroke warning signs and symptoms, personal modifiable stroke risk factors, activation of emergency medical systems for stroke, medications prescribed at discharge for stroke, and education on stroke follow-up. Modified William Score (MRS) on discharge Score Description 0 No symptoms at all 1 No significant disability despite symptoms; able to carry out all usual duties and activities 2 Slight disability; unable to carry out all previous activities, but able to look after own affairs without assistance 3 Moderate disability; requiring some help, but able to walk without assistance 4 Moderately severe disability; unable to walk without assistance 5 Severe disability; bedridden, incontinent and requiring constant nursing care and attention 6 Total Score: 4 4 Instructions Given to Patient at Discharge: Patient Instructions Patient Instructions: You were admitted to the neurology service at [facility] 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 - Lifestyle modifications should include: taking all medications as prescribed, smoking cessation or staying away from others who are smoking to avoid second hand smoke, limiting alcohol intake, maintaining a normal/healthy weight, adhering to a healthy diet (low-fat, low-sodium, high intake of fresh fruits and vegetables, limiting red meat), and engaging in regular physical activity. Call 911 or your local EMS if you have sudden weakness or numbness in your face or one of your limbs, slurred speech, loss of vision, or difficulty speaking. It is important to seek medical attentionas soon as possible, as these symptoms could be related to a new stroke. Diet: we recommend a heart healthy diet: low fat, low cholesterol, low concentrated sweets. Activity Restrictions: As tolerated. Driving Restrictions: No driving until cleared by a provider. Diabetes Follow-up and Instructions: 1. Continue to monitor your blood glucose (BG), also called blood sugar, with the goal of before-meal BG of 100 - 120 and after-meal BG of lower than 180. If you often have BG's lower than 80 or higher than 250, call your Health Care Provider. Your HbA1c target is less than 7.0%. 2. Know your cholesterol levels and the goal you are striving for. Your goal LDL is <100. 3. Continue to try eating healthy, which includes a low fat, low cholesterol, high fiber, no added sweets diet. 4. Exercising regularly is important. The goal for most people is 30 minutes of exercise, 3-4 timesper week. 30 minutes of exercise 5 days per week, never going more than 2 days in a row without exercise. Check with your Health care Provider for specific guidelines. 5. Monitor blood pressure weekly: Goal for most patients is 130/80 mm?Hg. Check with your Health Care Provider for specific guidelines. Continue to take all medications daily. 6. Remember to have an annual ophthalmic (eye) examination 7. Remember to have a quarterly foot examination done by your Health care provider. 8. Ask your Health care Provider about annual screening for urine micro-albumin. 9. Please plan quarterly follow-up visits for diabetes management with your Health care Provider. 10. Consider Diabetes Education in your community. The more you know about your diabetes, the better the decisions you will make every day. Know Your Numbers! Blood Pressure BP Readings from Last 3 Encounters: 10/12/24 123/55 07/28/24 134/55 05/24/24 106/49 HA1C Lab Results Component Value Date HA1C 6.1 (H) 09/17/2024 Cholesterol Lab Results Component Value Date CHLPL 203 09/17/2024 CHLPL 135 05/06/2024 HDL 45 09/17/2024 HDL 46 05/06/2024 TRIG 95 09/20/2024 TRIG 101 05/06/2024 LDLCHOL 69 05/06/2024 LDLDIRECT 133 09/17/2024 Below is an explanation of each of the cholesterol test results. Total cholesterol: This test is best when below 200. It can be improved primarily by a low fat diet. HDL (good cholesterol): The higher the better. It is best when above 50. It is primarily genetically determined but can be increased with exercise. LDL (bad cholesterol): this test is best when below 130 (or below 100 if you have heart disease or below 70 if you have had a stroke or TIA). It can be lowered by a low fat diet. Triglycerides: This test is best when below 180. It can be lowered by a low fat diet, avoidance of sweets and weight loss. Follow-up: Neurology: You will have a follow-up appointment in the neurology clinic at [facility]. See below for the appointment time. If you do not have an appointment, you will be called with a time/date for this appointment. NOTE: In an effort to reduce possible exposure to COVID-19, some clinic appointments are being conducted via telehealth with video. We will do our best to accommodate the best visit type, either in-person or via telehealth depending on each unique patient situation. Of note, if you consent to a telehealth encounter in lieu of face to face visit, you understand the visit may be billed similar to a regular liyp-qr-xawz clinic visit. Primary Care Provider: Please follow up with your Primary Care Provider within one to 2 weeks of discharge. For questions regarding this document or issues relating to this hospitalization on the Neurology Service, please contact the author(s) of this discharge summary through the [facility] [employer]ter . If you need to cancel or reschedule, please call Dept: [phone] as soon as possible. This is helpful to us and other waiting patients. IF FOLLOW UP VISIT WITH STROKE TEAM IS NEEDED IN FORM OF TELEHEALTH: Please ensure you have an active [employer] account and are familiar with it. Also, please ensure an active email address. To sign up for a [employer] account, Visit the [email or web address] website and 1) choose ???create an account?? 2) enter your date of 3) You will be asked if you have an activation code. If you have an activation code, click the ???yes?? button. If you do not have a code, click the ???no?? button. 4) If you do not have an activation code, you will now be asked to enter your information. 5) You will receive an email once your account has been created. If you need technical assistance call [phone] Friday through Friday, 7:30 am to 5:00 pm If you plan to join your [facility] Video Visit using your personal smartphone or tablet, prior to joining your visit you will need to download the Zoom jessi from the Jessi Store (for Movebubblehone/iPad) or docTrackr (for Android). Ifyou already have Zoom downloaded on your device for personal use, you???re good to go! 1. Open the Jessi Store or docTrackr Store on your device. 2. Search for Zoom and download the Zoom [place] Meetings jessi. ? Jessi Store Link: [email or web address].[email or web address]/[email or web address]/qpks-vvthg-[email or web address] ? Google Web [place] Link: https://BMdr/store/apps/details?id=us.zoom.videomeetings If you plan to join your [facility] Video Visit using your computer or laptop, prior to joining your video visit you will need to download Zoom. If you already have Zoom downloaded on your machine for personal use, you???re good to go! 1. Open your web browser (Internet Explorer, Chrome, etc.). 2. Type zoom.us and press enter on your keyboard (or click this link: https://zoom.us/). 3. In the top right corner of the webpage, hover over Resources and click Download Zoom Client. 4. Within the Zoom Download Center, find Zoom Client for Meetings and click the associated Downloadbutton. 5. Follow the downloading prompts. 6. Once complete, your computer will have the software necessary to connect to your visit. Note: Subsequent video visits will not require a re-download of Zoom. For phone/tablet: Starting 30 minutes before your appointment, you will find the link to connect to your visit withinyour [employer] portal. 1. Sign into your [employer] account. 2. Select Appointments. 3. Select your [facility] Video Visit and tap Begin Visit. 4. The Zoom jessi will launch. The ???Waiting for host to start this meeting?? screen will appear and stay until your provider enters the video visit. 5. Once the provider joins the visit you will see your video preview appear. Select Join with Video. 6. You will then be presented with an audio screen. Select Call using Internet Audio. For computer: Starting 30 minutes prior to your scheduled [facility] Video Visit, you will find the link to connect tothe visit within your [employer] portal. 1. Sign into your [employer] account ([employer] portal link: [email or web address]). 2. On the top of the webpage, hover over Visits and select Appointments and Visits. 3. Click the Details button next to your [facility] video visit. 4. Click the Begin Video Visit button. 5. Your computer will open your default web browser. Click Open Zoom Meetings on the pop-up window that appears. 6. The below window will appear and stay until your provider enters the video visit. 7. Once the provider has entered the video visit, you will be prompted with a video preview. Click Join with Video. 8. Connect the audio portion of the visit by clicking the Phone Call button. 9. Dial one of the phone numbers listed and follow the prompts to enter your Meeting ID and Participant ID. Note: the option exists to use your computer for audio, if you choose this option please ensure youare able to confirm your microphone settings are on. General Instructions SURGERY FOR HEAD BLEED DISCHARGE INSTRUCTIONS PRESCRIPTION INSTRUCTIONS: Please see the medication reconciliation list on this discharge summary for a current list of your medications. Stop the use of blood thinning medications until instructed otherwise by your surgical team. This includes medications known as antiplatelet, anticoagulant, and non-steroidal anti-inflammatory (NSAIDs) drugs. Common nmcd-ncu-bafsvuo medications which should be avoided include Aspirin, ibuprofen, and naproxen among others. These medications are sometimes combined with other drugs or are sold undera trade name. Common prescription medications which should be avoided include Plavix (clopidogrel) and Coumadin (warfarin) among others. WHEN TO SEEK MEDICAL CARE: Signs or symptoms of an infection: - Fever over 101F - Redness, swelling, or increasing pain around your incision - Drainage of pus, blood, or clear fluid from your incision New neurologic symptoms: - Worsening headaches not controlled with your pain medication - Drowsiness, confusion, and lethargy - Visual changes - Difficulty speaking or slurred speech - Facial droop - New weakness or sensory changes - New unsteadiness when walking - Seizures Constipation not relieved by diet and over the counter stool softeners and laxatives Nausea/vomiting (upset stomach) not controlled with your anti-nausea medication Symptoms of a deep venous thrombosis (DVT) or pulmonary embolism (PE): - Swelling/warmth/redness of the leg - Pain in the leg, which can be worse with standing or walking - Chest pain or shortness of breath To help prevent a DVT: - Exercise regularly. Walking, at least several times daily, is helpful. - Ankle pump exercises (like pressing and releasing the gas pedal) should be done regularly. - Keep hydrated with water or other clear liquids (coffee/tea/cola can dehydrate you). - Avoid alcohol and crossing your legs. - Remember not to sit or lay in bed, while awake, for prolonged amounts of time. WOUND CARE: - Keep incisional site clean and dry. You can remove your dressing 2 days after surgery, if not removed prior to your discharge. - You may shower and shampoo incisional site, per your usual routine, 4 days after surgery. DIET: - You may resume your usual diet. - A well-balanced diet is recommended for wound healing. - Prune juice or prunes can be added to your diet to assist with any constipation. ACTIVITY: - Avoid activities that are physically demanding or require a lot of concentration. They can make your symptoms worse and slow your recovery. - Avoid activities, such as contact or recreational sports, that could lead to a head injury. - When your health ocular care technician says you are well enough, return to your normal activities gradually, not all at once. - Talk with your health ocular care technician about when you can return to work. DRIVING: - Do not drive while taking narcotic pain medication. [x] Do NOT drive until cleared by Neurosurgery. FOLLOW UP PLAN: Incision: [] Please follow up for suture/staple removal in 10-14 days with your Primary Care Provider or withthe Neurosurgery FOOD TECHNOLOGY TEACHER/RN. Appointments: [x] Please follow up in the Neurosurgery Clinic in 4 weeks. Please call the Neurosurgery Office at [phone] if you do not receive a scheduled appointment within two weeks. Your follow-up appointment will be with: [] Dr. Chiu [] Dr. Nath [] Dr. Hernández [] Dr. Elmore [] Dr. Lewis [] Dr. Puga [] Dr. Vallecillo [] Dr. Rodriguez [x] Associate Provider Imaging: [x] Head CT Future Appointments and Orders Future Appointments and Orders Future Appointments Provider Department Dept Phone 11/04/2024 11:15 AM TRANSESOPHAGEAL ECHO Non-Invasive Cardiology Lab [facility] Arrive at: [facility] Check-in at [facility] 4W. PATIENT INSTRUCTIONS: Nothing to eat or drink after midnight. You will be sedated for your test and will need someone to drive you home. Bring a complete list of your medications. Check-in at [facility] 4W . PROCEDURE INSTRUCTIONS:Nothing to eat or drink after midnight. You will be sedated for your test and will need someone to drive you home. 11/10/2024 8:00 AM Clarisse Duke APRN Neurology at [facility] Arrive at: [facility] [phone] 12/15/2024 4:40 PM Duane Causey MD Cardiology at [facility] Arrive at: Home [phone] Please do not come in for this visit. Your provider will call you at the number you provided. Future Orders Complete By Expires IR Suture Release [[id number] Custom] 10/11/2024 12/04/2024 Process Instructions: Scheduling Instructions: Comments: Questions: Where will study be performed?: [facility] Radiology To be scheduled: Next available after expected date Reason for exam and clinical history: G tube placed 10/04, 7-10 day pexy release Exam/Procedure requested: What labs need to be collected during imaging study?: Is the patient on anticoagulant / antiplatelet therapy ?: No Does patient require sedation?: CT Head wo Contrast (Generic) [YMC074 Custom] 11/11/2024 02/09/2025 Process Instructions: Scheduling Instructions: Questions: Where will study be performed?: [facility] Radiology To be scheduled: Next available after expected date Is this imaging required as part of a research protocol?: No Reason for exam and clinical history: Follow up ICH in the setting of CAA Stat read required?: Does patient require sedation?: Primary Care Provider: Leila Manjarrez [address] / [facility] [place] [address] Discharge References/Attachments None documented in this encounter Discharge Instructions * Discharge Instructions* Agustin Loving PA - 09/30/2024 9:14 AM EST SURGERY FOR HEAD BLEED DISCHARGE INSTRUCTIONS PRESCRIPTION INSTRUCTIONS: Please see the medication reconciliation list on this discharge summary for a current list of your medications. Stop the use of blood thinning medications until instructed otherwise by your surgical team. This includes medications known as antiplatelet, anticoagulant, and non-steroidal anti-inflammatory (NSAIDs) drugs. Common lgrw-cfu-mncnxva medications which should be avoided include Aspirin, ibuprofen, and naproxen among others. These medications are sometimes combined with other drugs or are sold undera trade name. Common prescription medications which should be avoided include Plavix (clopidogrel) and Coumadin (warfarin) among others. WHEN TO SEEK MEDICAL CARE: Signs or symptoms of an infection: - Fever over 101F - Redness, swelling, or increasing pain around your incision - Drainage of pus, blood, or clear fluid from your incision New neurologic symptoms: - Worsening headaches not controlled with your pain medication - Drowsiness, confusion, and lethargy - Visual changes - Difficulty speaking or slurred speech - Facial droop - New weakness or sensory changes - New unsteadiness when walking - Seizures Constipation not relieved by diet and over the counter stool softeners and laxatives Nausea/vomiting (upset stomach) not controlled with your anti-nausea medication Symptoms of a deep venous thrombosis (DVT) or pulmonary embolism (PE): - Swelling/warmth/redness of the leg - Pain in the leg, which can be worse with standing or walking - Chest pain or shortness of breath To help prevent a DVT: - Exercise regularly. Walking, at least several times daily, is helpful. - Ankle pump exercises (like pressing and releasing the gas pedal) should be done regularly. - Keep hydrated with water or other clear liquids (coffee/tea/cola can dehydrate you). - Avoid alcohol and crossing your legs. - Remember not to sit or lay in bed, while awake, for prolonged amounts of time. WOUND CARE: - Keep incisional site clean and dry. You can remove your dressing 2 days after surgery, if not removed prior to your discharge. - You may shower and shampoo incisional site, per your usual routine, 4 days after surgery. DIET: - You may resume your usual diet. - A well-balanced diet is recommended for wound healing. - Prune juice or prunes can be added to your diet to assist with any constipation. ACTIVITY: - Avoid activities that are physically demanding or require a lot of concentration. They can make your symptoms worse and slow your recovery. - Avoid activities, such as contact or recreational sports, that could lead to a head injury. - When your health ocular care technician says you are well enough, return to your normal activities gradually, not all at once. - Talk with your health ocular care technician about when you can return to work. DRIVING: - Do not drive while taking narcotic pain medication. [x] Do NOT drive until cleared by Neurosurgery. FOLLOW UP PLAN: Incision: [] Please follow up for suture/staple removal in 10-14 days with your Primary Care Provider or withthe Neurosurgery FOOD TECHNOLOGY TEACHER/RN. Appointments: [x] Please follow up in the Neurosurgery Clinic in 4 weeks. Please call the Neurosurgery Office at [phone] if you do not receive a scheduled appointment within two weeks. Your follow-up appointment will be with: [] Dr. Chiu [] Dr. Nath [] Dr. Hernández [] Dr. Elmore [] Dr. Lewis [] Dr. Puga [] Dr. Vallecillo [] Dr. Rodriguez [x] Associate Provider Imaging: [x] Head CT * Patient Instructions* Val Connor PA - 10/12/2024 7:20 AM EST Images from the original note were not included. 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 - Lifestyle modifications should include: taking all medications as prescribed, smoking cessation or staying away from others who are smoking to avoid second hand smoke, limiting alcohol intake, maintaining a normal/healthy weight, adhering to a healthy diet (low-fat, low-sodium, high intake of fresh fruits and vegetables, limiting red meat), and engaging in regular physical activity. Call 911 or your local EMS if you have sudden weakness or numbness in your face or one of your limbs, slurred speech, loss of vision, or difficulty speaking. It is important to seek medical attentionas soon as possible, as these symptoms could be related to a new stroke. Diet: we recommend a heart healthy diet: low fat, low cholesterol, low concentrated sweets. Activity Restrictions: As tolerated. Driving Restrictions: No driving until cleared by a provider. Diabetes Follow-up and Instructions: 1. Continue to monitor your blood glucose (BG), also called blood sugar, with the goal of before-meal BG of 100 - 120 and after-meal BG of lower than 180. If you often have BG's lower than 80 or higher than 250, call your Health Care Provider. Your HbA1c target is less than 7.0%. 2. Know your cholesterol levels and the goal you are striving for. Your goal LDL is <100. 3. Continue to try eating healthy, which includes a low fat, low cholesterol, high fiber, no added sweets diet. 4. Exercising regularly is important. The goal for most people is 30 minutes of exercise, 3-4 timesper week. 30 minutes of exercise 5 days per week, never going more than 2 days in a row without exercise. Check with your Health care Provider for specific guidelines. 5. Monitor blood pressure weekly: Goal for most patients is 130/80 mm?Hg. Check with your Health Care Provider for specific guidelines. Continue to take all medications daily. 6. Remember to have an annual ophthalmic (eye) examination 7. Remember to have a quarterly foot examination done by your Health care provider. 8. Ask your Health care Provider about annual screening for urine micro-albumin. 9. Please plan quarterly follow-up visits for diabetes management with your Health care Provider. 10. Consider Diabetes Education in your community. The more you know about your diabetes, the better the decisions you will make every day. Know Your Numbers! Blood Pressure BP Readings from Last 3 Encounters: 10/12/24 123/55 07/28/24 134/55 05/24/24 106/49 HA1C Lab Results Component Value Date HA1C 6.1 (H) 09/17/2024 Cholesterol Lab Results Component Value Date CHLPL 203 09/17/2024 CHLPL 135 05/06/2024 HDL 45 09/17/2024 HDL 46 05/06/2024 TRIG 95 09/20/2024 TRIG 101 05/06/2024 LDLCHOL 69 05/06/2024 LDLDIRECT 133 09/17/2024 Below is an explanation of each of the cholesterol test results. Total cholesterol: This test is best when below 200. It can be improved primarily by a low fat diet. HDL (good cholesterol): The higher the better. It is best when above 50. It is primarily genetically determined but can be increased with exercise. LDL (bad cholesterol): this test is best when below 130 (or below 100 if you have heart disease or below 70 if you have had a stroke or TIA). It can be lowered by a low fat diet. Triglycerides: This test is best when below 180. It can be lowered by a low fat diet, avoidance of sweets and weight loss. Follow-up: Neurology: You will have a follow-up appointment in the neurology clinic at [facility]. See below for the appointment time. If you do not have an appointment, you will be called with a time/date for this appointment. NOTE: In an effort to reduce possible exposure to COVID-19, some clinic appointments are being conducted via telehealth with video. We will do our best to accommodate the best visit type, either in-person or via telehealth depending on each unique patient situation. Of note, if you consent to a telehealth encounter in lieu of face to face visit, you understand the visit may be billed similar to a regular leii-ui-ofpt clinic visit. Primary Care Provider: Please follow up with your Primary Care Provider within one to 2 weeks of discharge. For questions regarding this document or issues relating to this hospitalization on the Neurology Service, please contact the author(s) of this discharge summary through the [facility] Edge Setter . If you need to cancel or reschedule, please call Dept: [phone] as soon as possible. This is helpful to us and other waiting patients. IF FOLLOW UP VISIT WITH STROKE TEAM IS NEEDED IN FORM OF TELEHEALTH: Please ensure you have an active [employer] account and are familiar with it. Also, please ensure an active email address. To sign up for a [employer] account, Visit the [email or web address] website and 1) choose ???create an account?? 2) enter your date of 3) You will be asked if you have an activation code. If you have an activation code, click the ???yes?? button. If you do not have a code, click the ???no?? button. 4) If you do not have an activation code, you will now be asked to enter your information. 5) You will receive an email once your account has been created. If you need technical assistance call [phone] Friday through Friday, 7:30 am to 5:00 pm If you plan to join your myD-H Video Visit using your personal smartphone or tablet, prior to joining your visit you will need to download the Zoom jessi from the Jessi Store (for iPhone/iPad) or docTrackr (for Android). Ifyou already have Zoom downloaded on your device for personal use, you???re good to go! 1. Open the Jessi Store or docTrackr Store on your device. 2. Search for Zoom and download the [employer] beauty supply Meetings jessi. ? Jessi Store Link: [email or web address].Toppr/us/jessi/oztu-yqrot-ejmkprdf/[email or web address] ? Google Web [employer] Link: https://BMdr/store/apps/details?id=us.zoom.videomeetings If you plan to join your myD-H Video Visit using your computer or laptop, prior to joining your video visit you will need to download Zoom. If you already have Zoom downloaded on your machine for personal use, you???re good to go! 1. Open your web browser (Internet Explorer, Chrome, etc.). 2. Type zoom.us and press enter on your keyboard (or click this link: https://zoom.us/). 3. In the top right corner of the webpage, hover over Resources and click Download Zoom Client. 4. Within the Zoom Download Center, find Zoom Client for Meetings and click the associated Downloadbutton. 5. Follow the downloading prompts. 6. Once complete, your computer will have the software necessary to connect to your visit. Note: Subsequent video visits will not require a re-download of Zoom. For phone/tablet: Starting 30 minutes before your appointment, you will find the link to connect to your visit withinyour [employer] portal. 1. Sign into your [employer] account. 2. Select Appointments. 3. Select your [facility] Video Visit and tap Begin Visit. 4. The Zoom jessi will launch. The ???Waiting for host to start this meeting?? screen will appear and stay until your provider enters the video visit. 5. Once the provider joins the visit you will see your video preview appear. Select Join with Video. 6. You will then be presented with an audio screen. Select Call using Internet Audio. For computer: Starting 30 minutes prior to your scheduled [facility] Video Visit, you will find the link to connect tothe visit within your [employer] portal. 1. Sign into your [employer] account ([employer] portal link: [email or web address]). 2. On the top of the webpage, hover over Visits and select Appointments and Visits. 3. Click the Details button next to your [facility] video visit. 4. Click the Begin Video Visit button. 5. Your computer will open your default web browser. Click Open Zoom Meetings on the pop-up window that appears. 6. The below window will appear and stay until your provider enters the video visit. 7. Once the provider has entered the video visit, you will be prompted with a video preview. Click Join with Video. 8. Connect the audio portion of the visit by clicking the Phone Call button. 9. Dial one of the phone numbers listed and follow the prompts to enter your Meeting ID and Participant ID. Note: the option exists to use your computer for audio, if you choose this option please ensure youare able to confirm your microphone settings are on. documented in this encounter Medications at Time of Discharge Medication Sig Dispensed Refills Start Date End Date amLODIPine (Norvasc) 5 mg tablet Take 1 tablet by mouth daily. 10/12/2024 diclofenac (Voltaren) 1 % Gel Apply 2 g topically 4 times daily as needed. 10/12/2024 ipratropium-albuteroL (Duoneb) 0.5 mg-3 mg(2.5 mg base)/3 mL Solution for Nebulization Take 0.5 mg by nebulization every 4 hours. 10/12/2024 pantoprazole (Protonix) 40 mg Recon Soln Inject 10 mLs into the vein daily. 10/12/2024 traZODone (Desyrel) 50 mg tablet Take 1 tablet by mouth nightly. 10/12/2024 acetaminophen (Tylenol) 325 mg tablet Take 2 tablets by mouth every 6 hours as needed for Pain. 04/23/2024 cholecalciferol (Vitamin D3) 1,000 unit tablet Take 1,000 Units by mouth Daily. 12/10/2020 dilTIAZem CD (Cardizem CD) 300 mg CD (ER) 24 hr casule Take 1 capsule by mouth daily. 03/03/2023 sulfamethoxazole-trimet hoprim DS (Bactrim DS) 800-160 mg tablet Take 1 tablet by mouth 2 times daily for 4 days. 10/12/2024 10/16/2024 documented as of this encounter Progress Notes * Val Connor PA - 10/12/2024 1:50 PM EST Images from the original note were not included. VASCULAR NEUROLOGY DAILY PROGRESS NOTE Admit Date 09/16/2024 Responsible Attending: No att. providers found Primary Provider: Leila Manjarrez [phone] Hospital Day: Hospital Day: 27 Patient ID 74 y.o. female with PMHx RIGHT occipital hemorrhage, chronic a-fib presented for watchman procedure. Patient developed headache after procedure and was taken to CT where she was found to have RIGHT IPH with mass effect and midline shift s/p craniotomy. 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 Course complicated by dysphagia requiring PEG tube placement. 24hr Events: -L shoulder X ray for shoulder pain -abx narrowed to bactrim per sensi's/ ID curbside -IR suture release completed EXAM Last value Range last 24 hrs Temperature Temp: 36.5 ??C (97.7 ??F) Temp: [36.4 ??C (97.6 ??F)-36.7 ??C (98.1 ??F)] Heart Rate Heart Rate: 98 Heart Rate: -- Blood Pressure BP: 117/54 BP: (105-134)/(49-65) Respiratory Rate Resp: 20 Resp: [15-20] SpO2 SpO2: 98 % SpO2: [90 %-99 %] GENERAL - awake, alert, CN - PERRL, right gaze preference but can be overcome MOTOR - LUE/LLE 0/5 RUE/RLE able to sustain gravity/ wiggle toes DATA Intake/Output Summary (Last 24 hours) at 10/12/2024 1516 Last data filed at 10/12/2024 1200 Gross per 24 hour Intake 1990 ml Output 1601 ml Net 389 ml Labs Recent Labs 10/12/24 0004 10/10/24 2350 10/10/24 0044 10/09/24 0059 10/08/24 0113 WBC 9.08 9.97* 10.15* 12.45* 11.43* HGB 10.9* 10.9* 11.3* 10.4* 10.0* HCT 33.7* 33.9* 34.7* 32.1* 31.2* PLATELET 284 260 230 207 190 NEUTROABS 5.99 7.49* 7.26* 9.95* 9.01* Recent Labs 10/12/24 0004 10/10/24 2350 10/10/24 0044 10/09/24 0059 10/08/24 0113 NA 141 139 138 140 138 K 3.9 3.8 4.2 4.2 4.4 CL 104 103 101 102 104 CO2 27 27 26 28 27 BUN 23* 21* 22* 25* 26* CREATININE 0.40* 0.35* 0.34* 0.36* 0.39* GLUCOSE 154 179 195 159 186 Recent Labs 10/12/24 0004 10/10/240 10/10/24 0044 CALCIUM 9.2 9.3 9.2 MAGNESIUM 0.74 0.73 0.78 PHOS 3.3 3.0 3.1 Lipid Panel Lab Results Component Value Date CHLPL 203 09/17/2024 CHLPL 135 05/06/2024 HDL 45 09/17/2024 HDL 46 05/06/2024 TRIG 95 09/20/2024 TRIG 101 05/06/2024 LDLCHOL 69 05/06/2024 LDLDIRECT 133 09/17/2024 Lab Results Component Value Date HA1C 6.1 (H) 09/17/2024 Micro: Microbiology Results (last 7 days) Procedure Component Value - Date/Time Urine culture [[id number]] (Abnormal) (Susceptibility) Collected: 10/09/24 1043 Lab Status: Final result Specimen: Urine, Straight Catheter Updated: 10/12/24 0832 Urine Culture Greater than 50,000 cfu/mL Escherichia coli Greater than 50,000 cfu/mL Raoultella ornithinolytica Susceptibility Escherichia coli VITEK 2 METHOD Ampicillin Susceptible Ampicillin + Sulbactam Susceptible Cefazolin (Systemic) Intermediate Cefazolin (Urine) Susceptible Cefepime Susceptible Ceftriaxone Susceptible Cephalexin (deduced from Cefazolin) Susceptible [1] Ciprofloxacin Susceptible Gentamicin Susceptible Levofloxacin Susceptible Nitrofurantoin Susceptible Piperacillin/Tazobactam Susceptible Trimethoprim/Sulfa Susceptible [1] Deduced cephalexin susceptible result applies only to treatment of uncomplicated urinary tract infections. Susceptibility Raoultella ornithinolytica VITEK 2 METHOD Ampicillin Resistant Ampicillin + Sulbactam Susceptible Cefazolin (Systemic) Intermediate Cefepime Susceptible Ceftriaxone Susceptible Ciprofloxacin Susceptible Gentamicin Susceptible Levofloxacin Susceptible Nitrofurantoin Susceptible Piperacillin/Tazobactam Susceptible Trimethoprim/Sulfa Susceptible COVID-19 PCR [[id number]] (Normal) Collected: 10/11/24 1626 Lab Status: Final result Specimen: Swab from Nasopharynx Updated: 10/11/24 1904 SARS-CoV-2 RNA (Rapid) Not Detected Imaging/EKG Results for orders placed or performed during the hospital encounter of 09/16/24 CT Head wo Contrast (Generic) (Exam End: 09/16/2024 5:26 PM) Result Value WORKSTATION ID [id number] Impression Interval expansion of now large right-sided temporal occipital intraparenchymal hemorrhage with significant mass effect resulting in 1 cm leftward midline shift. Per chart review, this patient was seen by neurosurgery and taken emergently to the OR. I have personally reviewed the image(s) and the resident's interpretation and agree with the findings, Lana Reinoso at 09/16/2024 6:01 PM Thank you for letting us participate in the care of this patient. If you are a health care provider and have any questions regarding this report, please contact the number below. For patients who have questions please contact the health ocular care technician that requested your imaging first. Electronically signed by: Lana Reinoso [facility] ([phone]), at 09/16/2024 6:[address] Head wo Contrast (Generic) (Exam End: 09/16/2024 11:21 PM) Result Value WORKSTATION ID [id number] Impression CT head: 1. Interval craniotomy with residual or recurrent hemorrhage right temporal and parietal lobe. 2. New hemorrhage right [...] in the care of this patient. If you are a health care provider and have any questions regarding this report, please contact the number below. For patients who have questions please contact the health ocular care technician that requested your imaging first. Electronically signed by: Armando Pan MD, [facility] ([phone]), at 09/17/2024 1:[address] Venogram Brain (Exam End: 09/16/2024 11:21 PM) Result Value WORKSTATION ID [id number] Impression CT head: 1. Interval craniotomy with residual or recurrent hemorrhage right temporal and parietal lobe. 2. New hemorrhage right [...] in the care of this patient. If you are a health care provider and have any questions regarding this report, please contact the number below. For patients who have questions please contact the health ocular care technician that requested your imaging first. Chest One View (Exam End: 09/16/2024 11:00 PM) Result Value WORKSTATION ID [id number] Impression Satisfactorily positioned enteric and endotracheal tubes. Left lower lobe atelectasis versus pneumonia. Thank you for letting us participate in the care of this patient. If you are a health care provider and have any questions regarding this report, please contact the number below. For patients who have questions please contact the health ocular care technician that requested your imaging first. Electronically signed by: Pamela Beard MD, [facility] ([phone]), at 09/17/2024 12:09 AM XR Abdomen 1 view (Generic) (Exam End: 09/16/2024 11:00 PM) Result Value WORKSTATION ID [id number] Impression Satisfactorily positioned enteric and endotracheal tubes. Left lower lobe atelectasis versus pneumonia. Thank you for letting us participate in the care of this patient. If you are a health care provider and have any questions regarding this report, please contact the number below. For patients who have questions please contact the health ocular care technician that requested your imaging first. Electronically signed by: Pamela Beard MD, [facility] ([phone]), at 09/17/2024 12:[address] Head wo Contrast (Generic) (Exam End: 09/17/2024 4:51 AM) Result Value WORKSTATION ID [id number] Impression Increased size and density of dominant right parietal hematoma, and of hemorrhage extending medially into the basal ganglia. Foci of thalamocapsular hemorrhage on the right are stable. No evidence of progressive intraventricular hemorrhage or ventricular dilation. No definitive increase in leftward midline shift or herniation. Thank you for letting us participate in the care of this patient. If you are a health care provider and have any questions regarding this report, please contact the number below. For patients who have questions please contact the health ocular care technician that requested your imaging first. Electronically signed by: Elvin Bolden DO, [facility] ([phone]), at 09/17/2024 8:38 AM XR Chest One View (Exam End: 09/17/2024 2:13 PM) Result Value WORKSTATION ID [id number] Impression 1. No focal opacity in lung 2. Pulmonary edema, progressed since last examination. 3. Tip of ET tube is 23 mm superior cuff to jonathan. Consider adjustment. 4. Sidehole and tip of NG tube is below the diaphragm. Thank you for letting us participate in the care of this patient. If you are a health care provider and have any questions regarding this report, please contact the number below. For patients who have questions please contact the health ocular care technician that requested your imaging first. Electronically signed by: Zoey Zabala MD, [facility] ([phone]), at 09/17/2024 2:43 PM XR Chest One View (Exam End: 09/18/2024 8:43 AM) Result Value WORKSTATION ID [id number] Impression Tubes and lines as described. Blunting of the left costophrenic angle suggests tiny layering left effusion with associated left basilar consolidation/atelectasis Thank you for letting us participate in the care of this patient. If you are a health care provider and have any questions regarding this report, please contact the number below. For patients who have questions please contact the health ocular care technician that requested your imaging first. Abdomen 1 view (Generic) (Exam End: 09/18/2024 12:31 PM) Result Value WORKSTATION ID [id number] Impression Dobbhoff tube tip along the greater curve of the stomach. Thank you for letting us participate in the care of this patient. If you are a health care provider and have any questions regarding this report, please contact the number below. For patients who have questions please contact the health ocular care technician that requested your imaging first. Brain wwo Contrast (Generic) (Exam End: 09/19/2024 5:43 PM) Result Value WORKSTATION ID [id number] Impression Unchanged size of large right cerebral hemisphere ICH status post partial evacuation. Numerous small foci of decreased acute infarction both along and separate from the site of hemorrhage. These foci are present in both cerebral hemispheres and have a pattern most consistent with embolic infarction. No evidence of AUTOMOBILE DESIGNER malignancy Thank you for letting us participate in the care of this patient. If you are a health care provider and have any questions regarding this report, please contact the number below. For patients who have questions please contact the health ocular care technician that requested your imaging first. Electronically signed by: Rios Swartz MD, [facility] ([phone]), at 09/20/2024 8:[address] Head wo Contrast (Generic) (Exam End: 09/21/2024 3:50 AM) Result Value WORKSTATION ID [id number] Impression Stable hemorrhage right temporal, parietal, right posterior limb internal capsule and right thalamus. Mild progression of vasogenic edema adjacent to hemorrhage. Similar pattern and extent of local and generalized mass effect with stable subfalcine herniation and uncal herniation. Thank you for letting us participate in the care of this patient. If you are a health care provider and have any questions regarding this report, please contact the number below. For patients who have questions please contact the health ocular care technician that requested your imaging first. Electronically signed by: Armando Pan MD, [facility] ([phone]), at 09/21/2024 4:55 AM XR Abdomen 1 view (Generic) (Exam End: 09/21/2024 2:01 PM) Result Value WORKSTATION ID [id number] Impression Dobbhoff tube and enteric tube sidehole and tip is projecting over the expected location of the stomach. I have personally reviewed the image(s) and the resident's interpretation and agree with the findings, Shraddha Cox MD at 09/21/2024 3:40 PM Thank you for letting us participate in the care of this patient. If you are a health care provider and have any questions regarding this report, please contact the number below. For patients who have questions please contact the health ocular care technician that requested your imaging first. Electronically signed by: Shraddha Cox MD, [facility] ([phone]), at 09/21/2024 3:40 PM XR Chest One View (Exam End: 09/21/2024 2:01 PM) Result Value WORKSTATION ID [id number] Impression ET tube with tip projecting approximately 1.4 cm above the jonathan. Recommend retracting approximately 2 cm and follow-up imaging. New left basilar atelectasis and/or small pleural effusion. Aspiration or pneumonia could also this appearance. I Sacha Shipley MD discussed the results (Impression #1) with Bonnie Vazquez on 09/21/2024 4:42 PM and verified that the results were understood. I have personally reviewed the image(s) and the resident's interpretation and agree with the findings, Octavio Scott MD at 09/21/2024 5:09 PM Thank you for letting us participate in the care of this patient. If you are a health care provider and have any questions regarding this report, please contact the number below. For patients who have questions please contact the health ocular care technician that requested your imaging first. Electronically signed by: Octavio Scott MD, [facility] ([phone]), at 09/21/2024 5:[address] Head wo Contrast (Generic) (Exam End: 09/22/2024 4:02 AM) Result Value WORKSTATION ID [id number] Impression Stable head CT status post removal of subcutaneous drain. No new or enlarging hemorrhage. Stable pattern of mass effect Thank you for letting us participate in the care of this patient. If you are a health care provider and have any questions regarding this report, please contact the number below. For patients who have questions please contact the health ocular care technician that requested your imaging first. Electronically signed by: Armando Pan MD, [facility] ([phone]), at 09/22/2024 4:[address] Angiogram Chest for Pulmonary Embolus w Contrast (Exam End: 09/26/2024 1:37 PM) Result Value WORKSTATION ID [id number] Impression 1. No pulmonary embolism. 2. Pulmonary edema. 3. Bibasilar atelectasis. Superimposed patchy airspace opacity in the left lower lobe may represent atelectasis versus pneumonia. 4. Mild emphysema. 5. Mild cardiomegaly. Left atrial appendage occlusion device in situ. Mild multifocal coronary atherosclerosis. Correlation with echocardiography may be of benefit. 6. Unexpected Findin mm indeterminant left adrenal nodule. Per ACR white paper guidelines, follow-up CT of the Abdomen (Adrenal protocol - without and with intravenous contrast) is recommended in one year. 7. Mild sigmoid diverticulosis coli without secondary signs of acute diverticulitis. 8. Interval development of anasarca, which may be related to hypervolemia, hypoproteinemia, or combination thereof. 9. Endotracheal catheter in situ with tip 4 mm above the jonathan. Recommend retraction. 10. Enteric catheter in situ with tip terminating in the gastric pylorus. 11. Hill catheter in situ. Persistent distention of the urinary bladder. Correlation with catheter functionality is recommended. 12. Rectal catheter in situ. Thank you for letting us participate in the care of this patient. If you are a health care provider and have any questions regarding this report, please contact the number below. For patients who have questions please contact the health ocular care technician that requested your imaging first. Electronically signed by: aMrvin Decker DO, [facility] ([phone]), at 09/26/2024 1:[address] Head wo Contrast (Generic) (Exam End: 09/26/2024 1:37 PM) Result Value WORKSTATION ID [id number] Impression 1. Stable right-sided parenchymal and subdural hemorrhages, associated mass effect and midline shift. 2. Stable left intraventricular hemorrhage. 3. No new or enlarging hemorrhages or extra-axial collections. Thank you for letting us participate in the care of this patient. If you are a health care provider and have any questions regarding this report, please contact the number below. For patients who have questions please contact the health ocular care technician that requested your imaging first. Electronically signed by: Smiley Cordova MD, [facility] ([phone]), at 09/26/2024 2:[address] Abdomen & Pelvis w Contrast (Exam End: 09/26/2024 1:37 PM) Result Value WORKSTATION ID [id number] Impression 1. No pulmonary embolism. 2. Pulmonary edema. 3. Bibasilar atelectasis. Superimposed patchy airspace opacity in the left lower lobe may represent atelectasis versus pneumonia. 4. Mild emphysema. 5. Mild cardiomegaly. Left atrial appendage occlusion device in situ. Mild multifocal coronary atherosclerosis. Correlation with echocardiography may be of benefit. 6. Unexpected Findin mm indeterminant left adrenal nodule. Per ACR white paper guidelines, follow-up CT of the Abdomen (Adrenal protocol - without and with intravenous contrast) is recommended in one year. 7. Mild sigmoid diverticulosis coli without secondary signs of acute diverticulitis. 8. Interval development of anasarca, which may be related to hypervolemia, hypoproteinemia, or combination thereof. 9. Endotracheal catheter in situ with tip 4 mm above the jonathan. Recommend retraction. 10. Enteric catheter in situ with tip terminating in the gastric pylorus. 11. Hill catheter in situ. Persistent distention of the urinary bladder. Correlation with catheter functionality is recommended. 12. Rectal catheter in situ. Thank you for letting us participate in the care of this patient. If you are a health care provider and have any questions regarding this report, please contact the number below. For patients who have questions please contact the health ocular care technician that requested your imaging first. Chest One View (Exam End: 09/28/2024 4:06 AM) Result Value WORKSTATION ID [id number] Impression 1. Limited examination. 2. Interval removal of the endotracheal catheter. 3. Stable position of other medical hardware. 4. Decreased but persistent patchy left retrocardiac airspace opacity, may be resolving atelectasis or pneumonia. Thank you for letting us participate in the care of this patient. If you are a health care provider and have any questions regarding this report, please contact the number below. For patients who have questions please contact the health ocular care technician that requested your imaging first. Electronically signed by: Marvin Decker DO [facility] ([phone]), at 09/28/2024 4:12 AM XR Chest One View (Exam End: 09/28/2024 7:58 PM) Result Value WORKSTATION ID [id number] Impression 1. Slightly increased opacity in the left lower lung which may be due to atelectasis, aspiration or pneumonia. 2. Small bilateral pleural effusions. Thank you for letting us participate in the care of this patient. If you are a health care provider and have any questions regarding this report, please contact the number below. For patients who have questions please contact the health ocular care technician that requested your imaging first. Electronically signed by: Sammy Story MD, [facility] ([phone]), at 09/28/2024 8:09 PM XR Chest One View (Exam End: 09/29/2024 1:13 PM) Result Value WORKSTATION ID [id number] Impression 1. Limited examination. 2. Stable position of medical hardware. 3. The lung volumes are decreased, which accentuates the pulmonary vascular markings and cardiac silhouette. 4. Accounting for this, a stable mild component of congestive heart failure / fluid overload is suspected. 5. Stable moderate cardiomegaly. 6. Possible inferior subluxation of the left humerus. Correlation with patient symptomatology is recommended. If clinically indicated, further evaluation with dedicated left shoulder radiographs can be obtained. Thank you for letting us participate in the care of this patient. If you are a health care provider and have any questions regarding this report, please contact the number below. For patients who have questions please contact the health ocular care technician that requested your imaging first. Electronically signed by: Marvin Decker DO, [facility] ([phone]), at 09/30/2024 12:[address] Head wo Contrast (Generic) (Exam End: 10/04/2024 1:40 AM) Result Value WORKSTATION ID [id number] Impression 1. Overall interval improvement of the mass effect on the right hemisphere with evolution of blood products within the parenchyma post craniotomy. 2. Mild interval increase in extra-axial fluid inferior margin of the craniotomy. 3. Mild interval increase in size of third and lateral ventricles as well as peripheral CSF spaces 4. No new hemorrhage or infarction Thank you for letting us participate in the care of this patient. If you are a health care provider and have any questions regarding this report, please contact the number below. For patients who have questions please contact the health ocular care technician that requested your imaging first. Electronically signed by: Armando Pan MD, [facility] ([phone]), at 10/04/2024 2:12 AM MRI Brain wwo Contrast (Generic) (Exam End: 10/04/2024 10:30 PM) Result Value WORKSTATION ID [id number] Impression 1. Fluid collections in the right parietal lobe now showing some restricted diffusion, question abscess formation or hemorrhage. Fluid in the collections projecting deep to the craniotomy and at the margin of the craniotomy with restricted diffusion suggesting abscess formation or hemorrhage. 2. Fluid collections in the extra-axial space and adjacent to the craniotomy. These do not appear to demonstrate restricted diffusion and may represent a meningocele formation. 3. Interval decrease in mass effect compared to MRI of 09/19/2024. Thank you for letting us participate in the care of this patient. If you are a health care provider and have any questions regarding this report, please contact the number below. For patients who have questions please contact the health ocular care technician that requested your imaging first. Electronically signed by: Armando Pan MD, [facility] ([phone]), at 10/05/2024 12:31 AM XR Chest One View (Exam End: 10/06/2024 10:59 AM) Result Value WORKSTATION ID [id number] Impression Improved but persistent retrocardiac patchy opacity which is favored to represent atelectasis although underlying acute infectious/inflammatory process cannot be excluded. I have personally reviewed the image(s) and the resident's interpretation and agree with the findings, MICHELLE ARSHAD MD at 10/06/2024 3:00 PM Thank you for letting us participate in the care of this patient. If you are a health care provider and have any questions regarding this report, please contact the number below. For patients who have questions please contact the health ocular care technician that requested your imaging first. Electronically signed by: MICHELLE ARSHAD MD, [facility] ([phone]), at 10/06/2024 3:00 PM XR Fluoro Esophagram (Modified/Video Swallow Pharynx) (Exam End: 10/08/2024 4:10 PM) Result Value WORKSTATION ID [id number] Impression Abnormal modified barium swallow with silent aspiration. Please see Speech Language Pathology clinical notes for further detail. I have personally reviewed the image(s) and the resident's interpretation and agree with the findings, Victor Manuel Smith MD at 10/08/2024 4:49 PM Thank you for letting us participate in the care of this patient. If you are a health care provider and have any questions regarding this report, please contact the number below. For patients who have questions please contact the health ocular care technician that requested your imaging first. Electronically signed by: Victor Manuel Smith MD, [facility] ([phone]), at 10/08/2024 4:[address] Head wo Contrast (Generic) (Exam End: 10/07/2024 3:25 PM) Result Value WORKSTATION ID [id number] Impression 1. Interval decreased prominence of RIGHT parenchymal hemorrhage with unchanged RIGHT holohemispheric mass effect and RIGHT to LEFT midline shift. 2. No new hemorrhages. I have personally reviewed the image(s) and the resident's interpretation and agree with the findings, Domingo Puentes at 10/07/2024 4:11 PM Thank you for letting us participate in the care of this patient. If you are a health care provider and have any questions regarding this report, please contact the number below. For patients who have questions please contact the health ocular care technician that requested your imaging first. Electronically signed by: Domingo Puentes [facility] ([phone]), at 10/07/2024 4:11 PM ASSESSMENT & PLAN Lucero Bruno 74 y.o. female with PMHx RIGHT occipital hemorrhage, chronic a-fib presented for watchman procedure. Patient developed headache after procedure and was taken to CT where she was found to have RIGHT IPH with mass effect and midline shift s/p craniotomy. 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 - Continue Amlodipine 5mg daily - Continue diltiazem 90mg q6 #Pulm - - goal SpO2> 94% - O2 as needed - nebs PRN #GI - >dysphagia - follow up [employer] recs - Puree diet - Tube feeds - maintain bowel reg Last Bowel Movement: 10/12/24 - GI ppx-protonix 40mg - PEG tube placed 10/04 #FEN/ - - maintain euvolemia, I=O - Goal Na 135-145, K > 4, Mg > 1 # Heme - - goal Hgb > 7, INR < 1.5, Platelets > 50k - DVT ppx: Lovenox, SCDs # Endo - - goal glucose 120-180 Recent Labs 09/17/24 0039 05/06/24 0548 HA1C 6.1* 6.0* - sliding scale insulin (Resistant) - Tube feed assoc insulin - diabetes management team following # ID - > Leukocytosis > Pneumonia > Respiratory Distress, resolved >UTI - for temp > 38C --> UA, CXR, blood cx, sputum cx - tylenol PRN - repeat CXR 10/06 - Completed Zosyn (09/24 - 09/29) - CBC - UTI: bactrim for 7 day total course of therapy - C. Diff negative # Other - Activity: as tolerated - Dispo: Shelter facility - Last BM: Last Bowel Movement: 10/12/24 - code status: Attempt Cardiopulmonary Resuscitation - Inpatient Patient Lines/Drains/Airways Status Active Tubes/Lines/Drains Name Placement date Placement time Site Days Enterostomy Tube 10/04/24 1236 gastrostomy tube with balloon midline 10/04/24 1236 -- 8 Please page Vascular Neurology with any questions, #[id number] ADRIANA Aguirre Department of Neurology [place] [phone] Associated attestation - Karli Morales MD - 10/12/2024 8:02 PM EST This patient was seen in conjunction with Donnie Connor. I performed the majority of this shared visit based on time. 65 minutes were spent on date of visit, including non-face to face time. (30 JESSI min, 35 min my time) Karli Morales MD 74 yo woman here with R occipital IPH. On exam she is awake, alert, following commands R gaze preference. L sided weakness and increased tone in arm. R arm/leg antigravity. 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 Treating UTI, Trazodone for sleep. * bentonDheeraj - 10/12/2024 1:41 PM EST Reserve Officer Encounter Note Patient Name: Lucero Bruno : [id number] MR#: [id number] Admit Date: 09/16/2024 10:06 AM Hospital Day 26 days Narrative:Follow-up visit for continued assessment and support. Assessment:Family coping positively with stresses of illness/hospitalization at this time. I met with patient family member and he shared that she is feeling better and hoping to go rehab then home. Intervention and Outcome:Provided emotional, spiritual support and listening presence. Reserve Officer services accepted. Conversation to build trusting relationship. Provided pastoral presence. Provided spiritual guidance. Follow-up: yes Time in Direct Care:04 Mins Dheerajkee Moreira 10/12/2024 * Latosha Winston RN - 10/12/2024 12:12 PM EST Report given via phone call to Rosalinda at approx 1210 * Anupama Pastrana RN - 10/12/2024 7:52 AM ESTSummary: Physician Certificaton Statement for Non-emergency Ambulance Services Physician Certification Statement for Non-Emergency Ambulance Services Section I - General Information Lucero Bruno 1950 Medicare Number: [id number] Transport Date: 10/12/2024 (PCS is valid for round trips on this date and for all repetitive trips in the 60-day range as noted below.) Origion: [facility] Neuro Spec [id number] Destination: [facility] [address] [address] Is the patient's stay covered under Medicare Part A (PPS/DRG)?: Yes Closest appropriate facility? Yes Transfer Type: N/A Section II - Medical Necessity Questionnaire Ambulance Transportation is medically necessary only if other means of transport are contraindicated or would be potentially harful to the patient. To meet this requirement, the patient must be either bed confined or suffer from a condition such that transport by means other than ambulance is contraindicated by the patient's condition. The following questions must be answered by the medical professional signing below for this form to be valid: 1) Describe the MEDICAL CONDITION (physical and/or mental) of this patient AT THE TIME OF AMBULANCETRANSPORT that requires the patient to be transported in an ambulance and why transport by other means is contraindicated by the patient's condition: RIGHT IPH with mass effect and midline shift s/p craniotomy. Course complicated by dysphagia requiring PEG tube placement. 2) Is the patient bed confined as defined below? Yes To be bed confined the patient must satisfy all three of the following conditions: - unable to get up from bed without assistance AND unable to ambulate AND unable to sit in a chair or wheelchair. 3) Can this patient safely be transported by car or wheelchair van (i.e. seated during transport, without medical referral coordinator or monitoring?): No 4) In addition to complete questions 1-3 above, please select any of the following conditions that apply: *Note: supporting documentation for any boxes checked must be maintained in the patient's medical records Unable to sit in a chair or wheelchair due to decubitus ulcers or other wounds Section III - Signature of Physician or Healthcare Professional I certify that the above information is true and correct based on my evaluation of this patient, and represent that the patient requires transport by ambulance and that other forms of transport rare contraindicated. I understand that this information will be used by the Centers of Medicare and Medicaid Serices (CMS) to support the determination of medical necessity for ambulance services, and I represent that I have personal knowledge of the patient's condition at the time of transport. Anupama Pastrana RN 10/12/24 Form was electronically signed and dated by the patient's Physician or Healthcare Professional *Form must be signed only by patient's attending physician for scheduled, repetitive transports. For non-repetitive, unscheduled ambulance transports, when unable to obtain the signature of the attending physician, this form was signed by Looper Operator * Chet Cloud - 10/12/2024 7:41 AM EST Office of Care Management/Global Mobility Specialist Patient Name: Lucero Bruno : 1950 Patient has been offered a SNF bed at [facility] for today, 10/12/24 [facility] arranged for a 1330 transport. Ambulance will need: Medicare ambulance form completed and signed (MD or Fuse Spooler RN/BOOKKEEPING MACHINE OPERATOR) Copy of patient demographics [place] [facility] Hospital DNR/DNI order, if active No MD to MD report necessary Please call Nursing Report to and ask for A Wing survey research associate. Info to accompany patient: Copies of Medication Administration Records and IV sheets for past 10 days. Plan: Global Mobility Specialist will be available to the patient and Fuse Spooler-RN and/or Social Workerfor further assistance. Patient will be discharged to: [facility] Chet Cloud Global Mobility Specialist * Seth Avila - 10/11/2024 2:58 PM EST Nutrition Progress Note Lucero Bruno is a 74 y.o. female with PMHx RIGHT occipital hemorrhage, chronic a-fib presentedfor watchman procedure. Patient developed headache after procedure and was taken to CT where she was found to have RIGHT IPH with mass effect and midline shift s/p craniotomy. 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 Course complicated by dysphagia requiring PEG tube placement. Interval History No data found. Reason for Assessment: Follow-up, Tube Feeding Nutrition Recommendations: Puree diet, thin liquids per CUTTER AND EDGE TRIMMER 10/11. Continue bolus feeds of Nutren 1.5 at 250 mL x 4 daily + 6 scoops protein powder. At goal, this will provide: Nutren 1.5 Total Volume Per Day: 1000 mL Scoops of Protein: 6 Calories per Day: 1650 Protein per Day: 104 g Free Water mL per Day: 1064 % RDI: 100 % Monitor hydration status on above TFs as they are concentrated. Pt may need additional fluids depending on IVFs, med flushes, etc. Daily BMP w/ mag and phos Monitor lytes - replete as indicated Continue MVI Goal of 1 BM per 24-48 hrs on EN Goal BG <180 Daily Weights Pt meets criteria for severe protein calorie malnutrition as outlined below. Meet the following enteral nutrition (EN) milestones to be nutritionally ready for discharge: [x]Patient is tolerating goal volume and schedule (cycle/bolus) of enteral regimen [x]Electrolytes and blood sugars have been stable x 48 hours with goal regimen [x]Has not required IV fluids for hydration x 48 hours []Patient or capable caregiver has received education regarding home tube feeds []Home enteral regimen has been reviewed for errors and potential barriers to insurance coverage []Identification of a provider to manage enteral nutrition outside of the hospital []Delivery of enteral formula and supplies is scheduled Patient IS NOT nutritionally ready for discharge Details/recommendations for uncompleted steps: Education/DME set-up Current Nutrition Regimen: Active Orders Diet Puree diet Frequency: Effective Now Number of Occurrences: Until Specified Order Comments: OK for crushed meds All Active TF Orders: Tubefeeding Orders (From admission, onward) Start Dose/Rate Route Frequency Ordered Stop 10/07/24 1300 Diet Tube Feed: Nutren 1.5 (standard, energy-dense) (1.5 kcal/mL) over 5-60 Minutes Per G Tube 4 TIMES DAILY 10/07/24 1138 10/02/24 1130 tube feeding diet 960 mL Per NG tube CONTINUOUS 10/02/24 1037 10/03/24 2359 Average tube feeding provision over past 3 days; 4 feeds vs daily goal of 4 feeds (100% of goal). Average protein powder provision over the past 3 days; 6 scoops vs daily goal of 6 scoops (100% of goal) Tolerance or barriers to meeting needs: tolerating Assessment: Lab Results Component Value Date NA 139 10/10/2024 NA 141 05/08/2024 K 3.8 10/10/2024 K 4.2 05/08/2024 CL 103 10/10/2024 CL 105 05/08/2024 CO2 27 10/10/2024 CO2 25 05/08/2024 BUN 21 (H) 10/10/2024 BUN 14 05/08/2024 CREATININE 0.35 (L) 10/10/2024 CREATININE 0.68 (L) 05/08/2024 ESTGFR 109 10/10/2024 ESTGFR 92 05/08/2024 MAGNESIUM 0.73 10/10/2024 MAGNESIUM 0.85 05/08/2024 CALCIUM 9.3 10/10/2024 CALCIUM 9.2 05/08/2024 PHOS 3.0 10/10/2024 PHOS 3.1 05/08/2024 AST 28 09/26/2024 AST 15 05/08/2024 ALT 72 (H) 09/26/2024 ALT 14 05/08/2024 ALKPHOS 81 09/26/2024 ALKPHOS 92 05/08/2024 BILITOT 0.4 09/26/2024 BILITOT 0.4 05/08/2024 BILIDIR <0.2 09/26/2024 BILIDIR 0.1 05/08/2024 TRIG 95 09/20/2024 TRIG 101 05/06/2024 CRP 8.6 (H) 10/05/2024 HA1C 6.1 (H) 09/17/2024 HA1C 6.0 (H) 05/06/2024 25OHVITD 38 11/14/2023 Lab Results Component Value Date POCGLU 152 10/11/2024 POCGLU 126 10/11/2024 POCGLU 139 10/11/2024 POCGLU 182 10/10/2024 POCGLU 99 10/10/2024 Patient Lines/Drains/Airways Status Active Nutritional LDAs Name Placement date Placement time Site Days Enterostomy Tube 10/04/24 1236 gastrostomy tube with balloon midline 10/04/24 1236 -- 7 PIV 10/06/24 1416 22 gauge;1.75 in length median vein (underside of arm), right 10/06/24 1416 -- 5 External Catheter 10/11/24 1000 other (see comments) 10/11/24 1000 -- less than 1 Oxygen Therapy / Airway Device: None (Room air) Shift Pressure Injury Prevention Occiput: Redness, Blanchable Thoracic Spine: No Injury Sacral: Redness, Blanchable Ischial - left: No Injury Ischial - right: No Injury Heel - left: No Injury Heel - right: No Injury Elbow - left: No Injury Elbow - right: No Injury Device Sites: BP Cuff, IV sites, O2 sat monitor EEG Skin Appearance: clean, intact, dry Other Sites: external cath Last Bowel Movement: 10/11/24 Intake/Output Summary (Last 24 hours) at 10/11/2024 1514 Last data filed at 10/11/2024 0900 Gross per 24 hour Intake 940 ml Output 1800 ml Net -860 ml Relevant medications: Lispro Thera M Protonix Colace PRN Anthropometrics: Admit Weight: 88.45 kg Estimated body mass index is 33.4 kg/m?? as calculated from the following: Height as of 09/21/24: 152.4 cm (5'). Weight as of this encounter: 77.6 kg (171 lb). [place] Body Weight (IBW) (kg): 45.45 Wt Readings from Last 10 Encounters: 10/11/24 77.6 kg (171 lb) 09/21/24 91.3 kg (201 lb 4.5 oz) 09/18/24 91.5 kg (201 lb 11.5 oz) 07/28/24 85.3 kg (188 lb) 05/24/24 81.6 kg (180 lb) 05/08/24 84.1 kg (185 lb 6.4 oz) 05/08/24 82 kg (180 lb 12.4 oz) 04/23/24 83.9 kg (185 lb) 03/03/24 85 kg (187 lb 6.3 oz) 11/14/23 87.2 kg (192 lb 3.2 oz) Patient Vitals for the past 168 hrs: Weight 10/11/24 0600 77.6 kg (171 lb) 10/10/24 0600 78.6 kg (173 lb 4.5 oz) 10/09/24 0600 79.4 kg (175 lb) 10/08/24 0600 78.8 kg (173 lb 12.8 oz) 10/06/24 0551 79.4 kg (175 lb) 10/05/24 0553 79.3 kg (174 lb 12.8 oz) Weight Source: Bed Edema per flowsheets Date Grading 11/12 1+ bilateral ankles, 2+ generalized, 2+ left hand 10/03 1+ bilateral ankles, 2+ generalized 10/01 1+ BLE, 2+ LUE Estimated / Assessed Needs: Kcal / K - 1597 Kcal (14 Kcal/Kg - 18 Kcal/Kg) Estimated Protein Needs: 91 g - 114 g (2.0 g/Kg - 2.5 g/Kg IBW) Nutrition intake and intake history / interview: 10/11: Pt tolerating bolus feeds at goal. Weight loss noted per EMR, fluid losses noted per I/Os - unsure of Pt's UBW - pt unable to accurately provide weight history. 10/07: RN requesting transition to bolus feeds. Order pended and team paged. 10/06: CUTTER AND EDGE TRIMMER continues to recommend NPO, per note 10/05. Per JAN, TF running at goal. Unable to confirm TF volume provided on pump as history was cleared. Wt appears to be trending down and does not seem related to fluid shifts - likely related to frequent holds preventing full volume of TF being provided. 10/04: TF held at midnight last night for possible PEG placement today. Per chart, pt has lost additional 6.2kg (7.2%) since last nutrition assessment - lasix given on 10/01. LBM 10/03. Potassium and phosphorus now WNL without need for repletion since 10/01. 10/01: TF restarted 09/29 at 1645hr; currently running at 30mL/hr. Pt showing signs of refeeding per 10/01 labs (hypokalemia, hypophosphatemia); KCl repletion noted but . Some high BG noted 09/30 (229, 196, 207, 233); insulin regimen still adjusting for Pep VHP rather than Nutren 1.5, team aware. CUTTER AND EDGE TRIMMER continues to recommend NPO per 09/30 note. LBM 09/29, optimize regimen. Per EMR, pt with 4% wt loss in <1 week (196lbs on 09/24 to 188lbs on 09/28) which is clinically significant. Unable to complete full NFPE at this time. Planned for upcoming PEG placement. 09/29: TF Dc'd 09/28 @ 1835hr. CUTTER AND EDGE TRIMMER continues to recommend NPO, need for alternate nutrition. Updated TF recs pended as above. Pt now with <50% EER x 5 days, increasing risk for malnutrition. 09/27: TF off. Pressor off. Extubated, not cleared for PO intake. 09/23: TF held for possible extubation today, restarted this afternoon. Reassessed needs, TF recs updated. 09/21: Pt extubated and reintubated today, restarted on propofol. TF held. 09/17: Cx for TF recs. Per chart, wt has been fluctuating 82-89 kg x 10 months. Nutrition Focused Physical Exam: Performed (10/01 by MLS) Subcutaneous Fat Loss Orbital region: None present Upper arm region (triceps/biceps): None present Thoracic and Lumbar regions (ribs, lower back, and maxillary line): Not assessed Lean Muscle Loss Druze region (temporalis muscle): None present Clavicle bone region (pectoralis major): None present Dorsal hand (interosseous muscle): Not assessed (pt unable to engage muscle) Shoulder (deltoid): None present Scapular bone region (latissimus dorsi, trapezius muscles): Not assessed Thigh region (quadriceps muscle): Not assessed Posterior calf region (gastrocnemius muscle): Not assessed Malnutrition Diagnosis: Identified: less than or equal to 50% of estimated energy requirement for greater than or equal to 5 days and greater than 2% weight loss in 1 week is consistent with Severe protein-calorie malnutrition in the setting of acute illness or injury (Mari main al, JPEN J Parenteral Enteral Nutr. 2011; 36(3): 273-83) Nutrition to continue to follow up while inpatient Seth Stephen, MS, RD, LD Clinical Nutrition * Areli Hathaway, CUTTER AND EDGE TRIMMER - 10/11/2024 2:17 PM EST Speech Therapy Note Patient Profile: Lucero Bruno is a 74 y.o. female with PMHx of A-fib, CHRISTOPHER, HLD, and prior IPH (04/2024) who presented to [facility] on 09/16/2024 for placement of Watchman with cardiology. She developed headaches and nausea post-operatively and was found to have a large R wamidkky-[id number]-ayvpbinio IPH, now s/p craniotomy. Patient was intubated from 09/16-09/21 with extubation complicated by stridor requiring re-intubation from 09/21-09/26 (11 days total). CUTTER AND EDGE TRIMMER has been following since 09/27 for communication and dysphagia management. Interval History: MBS completed 10/08; see report for details Recent Imaging: XR Fluoro Modified Barium Swallow (10/08/2024) IMPRESSION Abnormal modified barium swallow with silent aspiration. Please see Speech Language Pathology clinical notes for further detail. Subjective: Patient was pleasant and engaged with care. She was pleased to hear that her swallow study had gone well, remarking, I practiced a lot. Objective: Patient seen for dysphagia management and demonstrated the following: Pain: No acute signs of discomfort Respiratory Status: Room air, satting 96% Current Diet: Sips and Chips (Hold Meds) Feeding / Oral Care Status: Patient is able to accept and bring a pre-loaded spoon to her mouth. She occasionally overshoots to her left but self-corrects independently. Cognitive-Linguistic Status: A&Ox4 Good focused attention Responding to questions appropriately using a combination of head nods, hand gestures, and/or shortsentences Follows multi-step commands within motor constraints Writing is reasonably intelligible at the sentence level; able to independently request clipboard Left-sided inattention; able to turn her head, localize, and identify objects and colors on her left side when prompted. Today, she implemented compensatory strategies for visual scanning (e.g., using her hand to manually turn her head to the left) independently. Command Following: Follows multi-step commands within motor constraints Positioning: HOB at 60 degrees, requires intermittent repositioning due to unilateral weakness and poor body awareness (improving) Oral Motor Examination: WFL Impaired Comments STRUCTURES Facial Symmetry X Left facial droop Lips X Reduced retraction on L, improving on R Tongue X Deviates L on protrusion; ROM, agility, and coordination improving Jaw X Palate/Velum X Dentition X Missing right upper teeth and multiple others; visible decay OTHER Phonation X Gravelly, strained, hypophonic (improving) Intelligibility X Approximately 80% at the word level; most impacted by strain. Compensates for articulatory imprecision using slow rate Volitional Cough X Reduced but gradually improving Sensation X Suspect L sensory impairment vs. inattention, improving Secretion Management X Bolus Presentation(s): Tested Comments Thin liquids X Water via straw [place] thick liquids Honey thick liquids Pureed solids X Pudding Dysphagia soft Mechanical soft Regular solids Pills Other X Ice chips Oral Preparatory Phase Mastication: N/A Oral transit: Lingual movement is slow but effective for A-P transit Bolus cohesion: Suspect reduced with larger volumes Oral containment: Reduced labial seal with intermittent left-sided anterior loss Oral stasis: None after double swallow Pharyngeal Phase Swallow initiation: Present, swallows 2x/bite with variable timeliness Vocal quality change: None Cough / throat clear: Delayed cough x2 over 4 oz of pudding, none with water Pt complaint of food getting stuck: None Fatigue across trials: None Respiratory rate and respiratory swallow pattern: Unlabored and coordinated Esophageal Observations No overt signs of esophageal dysphagia were noted Compensatory Techniques: Extended time, physical assistance (clinician held cup and patient held spoon) Education: Reviewed results and recommendations from last week's modified barium swallow, includingoptions for diet advancement (full liquid vs. puree diet). Patient agreed to start a puree diet with plan to monitor tolerance and likely advance later this week. Patient status and swallow recommendations were discussed with nursing. Paged the primary team re: updated diet recommendations. Assessment: Aubree was seen today for communication and dysphagia management. Her orofacial range of motion and coordination continue to improve, leading to improvements in oral control and swallow efficiency with PO intake. Aubree's recent modified barium swallow revealed [id number]-rq-[id number] oropharyngeal dysphagia with primary deficits including prolonged and disorganized lingual propulsion with soft solids and varying degrees of timeliness in swallow initiation leading to occasional airway compromise with large sips of liquid. She tolerated small volumes of liquid and puree well. I reviewed theseresults with Aubree today and she agreed to start a puree diet with plan to monitor tolerance and likely advance to soft solids later this week assuming no acute change in status. Aubree will require positioning assistance prior to meals along with 1:1 feeding assistance due to significant motor limitations. Diagnosis: [id number]-[id number] oropharyngeal dysphagia 2/2 IPH, dysphonia 2/2 IPH vs. 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 ONGOING Pt will be independent with aspiration precautions, diet modifications, and safe swallowing strategies. ONGOING Pt will participate in an instrumental swallow evaluation. MET Plan: Therapy Frequency (CUTTER AND EDGE TRIMMER Eval): 3-5 times/wk Patient is in agreement with the plan of care. Total Minutes (Speech Language Pathology): 40 Areli Hathaway MS, CCC-CUTTER AND EDGE TRIMMER Speech-Language Pathologist Inpatient Rehabilitation Pager # [phone] * Kymberly Baptiste, PT - 10/11/2024 10:01 AM EST Physical Therapy Note Treatment Number PT: 7 Patient profile: Lucero Bruno ( ) is a 74 y.o. 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 Interval History: per neuro note -was uncomfortable overnight from pain/ sleep. Started trazadone scheduled for 9pm -got trazadone at 0300, lethargic this AM during rounding at 0700 from this Social History: per previous hospitalization 04/2024 Patient reports she lives alone with her two cats in a 2 level home with a basement. Patient reports her needs are met on the main level, including laundry. Her bathroom includes a tub shower with grab bars. Residence has 2 small ZAIN. At her baseline, patient is independent in all aspects. 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 Patient reports she enjoys her 1/2 acre of flower beds. Falls: None Precautions/Special Considerations: at risk to fall, SBP 90-160, MAP>65 Lines: PIV, tele, PEG Activity Orders: AAT Diet: puree Mobility and Positioning Recommendations: Pt to utilize mech lift for transfers with nursing. Please encourage up to chair for meal times as able. Subjective: Good morning Objective: Patient seen for physical therapy and demonstrated the following: Pain: No c/o pain Vital Signs: Stable throughout on RA Cognition/Vision: alert, follows commands in RUE/RLE, answers yes/no with gestures, able to speak more (louder and clearer) Pt received supine in bed. Pleasant and agreeable to participate in PT. Performing ankle pumps & SAQ in bed, reporting that she's doing [her] exercises Rolled towards L with min assist, LUE on bed rail Split-leg sling placed Transferred from bed to w/c with mech lift, tolerated well Initiated w/c mobility training. Pt able to propel with RUE with a strong push, however is limited by poor trunk control- unable to maintain upright posture and demo's excessive forward trunk flexion. Wheeled to sink in bathroom to participate in ADLs with OT. PT focused on maximizing posture, utilized gait belt around upper trunk to promote extension. Frequent cueing for L head turn and L gaze with fair effect Mech lift from w/c to recliner chair, tolerated well Education: Pt educated on bed mobility, transfers, seated balance, role of therapy, and importance of mobility. She will require ongoing reinforcement. Pt left in bedside recliner chair, with all needs met, and with call ruiz in reach following visit. Assessment: Lucero Bruno was seen today for physical therapy treatment session for continuation of POC. Session today focused on initiation of w/c mobility training, as well as trunk control. Ptis limited by poor balance, impaired sense of upright, and weakness of trunk extensors. She requires significant assistance to maintain upright, midline posture, but with assist, was able to start propelling w/c with RUE. Will continue to work on deficits in order to maximize function, recommend d/c to SNF once medically ready. Pt will benefit from ongoing therapeutic interventions to achieve therapy goals. Discharge Recommendations: Based on the current findings, Anticipated Discharge Disposition (PT): jail facility when medically ready for hospital discharge. Discharge recommendation is based on the patient's current physical impairments, prior functional status, potential to return to prior level of function, patient motivation, reported home support, potential for functional gains, current level of endurance, reported home environment and anticipated trajectory of progress and may change based on patient progress during this hospitalization. Consult Recommendations: No other consults recommended at this time. Equipment needs: Anticipated Equipment Needs at Discharge (PT): to be determined Goals: To be achieved by 10/23/24: ONGOING Pt. to demonstrate knowledge of safety limitations and precautions and will appropriately request assistance for functional activities and to mobilize. Pt. to perform bed mobility with mod A. Pt will maintain seated balance at EOB with min A x5 mins. Pt. Will tolerate mech lift OOB to recliner chair. MET Family or caregiver to demonstrate understanding of therapeutic interventions to support the care of the patient. Pt will tolerate progression towards upright with stable vital signs. Plan: Therapy Frequency (PT): 2-3 times/wk for therapy interventions as outlined in initial evaluation. Patient agrees with plan as stated. Time IN / OUT: 3868-7393 Total Minutes, Physical Therapy: 24 Billing Code: [id number] Kymberly Baptiste PT, DPT, NCS Pager: [phone] Physical Therapy Inpatient Rehabilitation Department * Lucie Caldera OT - 10/11/2024 9:36 AM EST Occupational Therapy Treatment Note Treatment Number OT: 6 Patient Dx:Lucero Bruno is a 74 y.o. female admitted on 09/16/2024. 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 Presents to OT for evaluation of functional activity. Social History: per chart review Home Setup: Pt lives in a multi story home with all needs met on one level. Pt has a tub shower with grab bars. Social support: Pt lives alone. Pt has a significant other and a son in the area. Pt lives with her two cats Jose A and Whoolio DME: Cane Tub grab bar Baseline ADL/Mobility: Pt was independent at baseline with use of cane. 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 Pt has a 1/2 acre of flower beds. Precautions/Special Considerations: full code, falls, supplemental O2 via NC, NPO, PEG, AAT, SBP 90-160, PIV Interval History: (per Neurology note on 10/11/24) -was uncomfortable overnight from pain/ sleep. Started trazadone scheduled for 9pm -got trazadone at 0300, lethargic this AM during rounding at 0700 from this S: Good morning I would like to brush my teeth. O: Patient seen for skilled OT treatment, and demonstrated the following: Self-care/Functional Mobility: Pt received supine in bed, agreeable to participating in therapy Dependent for incontinence care Min A x 1 to roll to L side using RUE and RLE to assist Max A x 1 to roll to L side Lift sling dependently placed while pt side lying Pt dependently lifted OOB to wheelchair with overhead mechanical lift and 2 assist Pt able to propel w/c with RUE with a strong push, however pt demonstrating limited truck control with significant forward lean Pt wheeled into the bathroom with mod assist Min A x 1 to complete oral care and face washing seated in wheelchair at the sink. Pt required multimodal cues to maintain upright posture while seated in recliner Pt provided with frequent multimodal cues to attend to L side, used mirror to assist with L inattention Pt dependently wheeled from the bathroom and lifted to recliner chair with overhead lift Pt left sitting in recliner with all needs met, call light in reach and alarms in place, RN updatedon session Cognition: Behavior / Mood: alert, cooperative, and impaired task initiation Alert and oriented to: person, place, month, year, day of week, and situation Follows commands: 1 step and 2 step Attention: difficulty attending to task/directions Safety awareness: decreased insight into deficits Vision: R gaze preference L inattention Communication Thumbs up vs down Nod yes/no gestures Speaking- Hypophonic Vitals: HR: 80s at rest, 90s with activity SpO2: 98% on RA BP: 115/55 (70) Strength/ROM: Cervical ROM:decreased L RUE elbow/hand full ROM, RUE shoulder flexion AAROM LUE full PROM, no AROM, subluxed shoulder, edema in hand, positioned on pillow, OT issued sling Pain: no complaints of pain Education: Pt education ongoing regarding: Role of Occupational Therapy, Reorientation, Range of motion , Exercises , Activity tolerance, Positioning, Safety during ADL's and functional mobility , Alternating rest/activity , Increased participation in self-care and ADL's within hospital environment, Use of AE, DME recommendations , L inattention , and Goals Staff Communication: Handoff given to RN including pt's location, pain, and pertinent information at cessation of session. ASSESSMENT: Pt seen this morning for OT treatment session to progress POC. Aubree remains very pleasant and cooperative. She tolerated being lifted OOB to a wheelchair well. Once in w/c she was able tocomplete seated grooming tasks at the sink with some assist. She continues to have a R gaze preference and required multimodal cues to attend to L side. Continue to recommend pt be discharged to SNF when she is medically ready. Pt will benefit from ongoing therapeutic interventions to achieve pt's and therapy goals. Anticipated Discharge Disposition [facility] Equipment Recommendations: Equipment Needs Upon Discharge (OT): to be determined Daily schedule / Staff Recommendations: EPM Level 2: Bed-Chair position, Mechanically lift to chair, Participate in self care Utilize upright chair position using bed features or transfer to recliner chair as appropriate withlift Frequent orientation verbally & visually with calendars/clocks/whiteboard Facilitate a normal sleep-wake cycle (minimize nighttime distractions when possible, lights on/shades up during the day) Provide brief, clear instructions and directions from one source at a time Reduce extraneous stimulation Encourage use of coping & calming strategies Support LUE on pillow of in sling Occupational Therapy Goals: To be achieved by 10/21/24. Pt will be consistently A&Ox4 and CAM (-) Pt will complete UBD with min A using compensatory strategies/LRAD prn. Pt will complete UB bathing with min A using compensatory strategies/LRAD prn. Pt will complete 2-3 grooming tasks at in supported sitting with set up A. Pt will complete BUE HEP to improve functional use of ADLs Therapy Frequency (OT): 2-3 times/wk Total Minutes, Occupational Therapy: 26 (09:36-10:02 SCx2) Lucie Caldera OTR/L Occupational Therapy Rehabilitation Department Pager # [phone] * Val Connor PA - 10/11/2024 9:13 AM EST Images from the original note were not included. VASCULAR NEUROLOGY DAILY PROGRESS NOTE Admit Date 09/16/2024 Responsible Attending: Karli Morales MD Primary Provider: Leila CarrenoSamyHerson [phone] Hospital Day: Hospital Day: 26 Patient ID 74 y.o. female with PMHx RIGHT occipital hemorrhage, chronic a-fib presented for watchman procedure. Patient developed headache after procedure and was taken to CT where she was found to have RIGHT IPH with mass effect and midline shift s/p craniotomy. 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 Course complicated by dysphagia requiring PEG tube placement. 24hr Events: -was uncomfortable overnight from pain/ sleep. Started trazadone scheduled for 9pm -got trazadone at 0300, lethargic this AM during rounding at 0700 from this EXAM Last value Range last 24 hrs Temperature Temp: 36.9 ??C (98.4 ??F) Temp: [36.5 ??C (97.7 ??F)-36.9 ??C (98.4 ??F)] Heart Rate Heart Rate: 98 Heart Rate: -- Blood Pressure BP: 108/50 BP: (108-145)/(45-72) Respiratory Rate Resp: 20 Resp: [12-20] SpO2 SpO2: 97 % SpO2: [94 %-99 %] GENERAL - lethargic but does arouse to examiner CN - PERRL, right gaze preference MOTOR - LUE/LLE 0/5 RUE/RLE able to sustain gravity/ wiggle toes DATA Intake/Output Summary (Last 24 hours) at 10/11/2024 0920 Last data filed at 10/11/2024 0600 Gross per 24 hour Intake 540 ml Output 1800 ml Net -1260 ml Labs Recent Labs 10/10/24 2350 10/10/24 0044 10/09/24 0059 10/08/24 0113 10/07/24 0112 WBC 9.97* 10.15* 12.45* 11.43* 15.48* HGB 10.9* 11.3* 10.4* 10.0* 10.7* HCT 33.9* 34.7* 32.1* 31.2* 32.4* PLATELET 260 230 207 190 211 NEUTROABS 7.49* 7.26* 9.95* 9.01* 13.16* Recent Labs 10/10/240 10/10/244 10/09/24 0059 10/08/24 0113 10/07/24 0112 NA 139 138 140 138 138 K 3.8 4.2 4.2 4.4 4.0 CL 103 101 102 104 102 CO2 27 26 28 27 27 BUN 21* 22* 25* 26* 17 CREATININE 0.35* 0.34* 0.36* 0.39* 0.36* GLUCOSE 179 195 159 186 190 Recent Labs 10/10/24234910/10/244310/09/2458 CALCIUM 9.3 9.2 9.5 MAGNESIUM 0.73 0.78 0.81 PHOS 3.0 3.1 3.5 Lipid Panel Lab Results Component Value Date CHLPL 203 09/17/2024 CHLPL 135 05/06/2024 HDL 45 09/17/2024 HDL 46 05/06/2024 TRIG 95 09/20/2024 TRIG 101 05/06/2024 LDLCHOL 69 05/06/2024 LDLDIRECT 133 09/17/2024 Lab Results Component Value Date HA1C 6.1 (H) 09/17/2024 Micro: Microbiology Results (last 7 days) No results found for the last 168 hours. Imaging/EKG Results for orders placed or performed during the hospital encounter of 09/16/24 CT Head wo Contrast (Generic) (Exam End: 09/16/2024 5:26 PM) Result Value WORKSTATION ID [id number] Impression Interval expansion of now large right-sided temporal occipital intraparenchymal hemorrhage with significant mass effect resulting in 1 cm leftward midline shift. Per chart review, this patient was seen by neurosurgery and taken emergently to the OR. I have personally reviewed the image(s) and the resident's interpretation and agree with the findings, Lana Reinoso at 09/16/2024 6:01 PM Thank you for letting us participate in the care of this patient. If you are a health care provider and have any questions regarding this report, please contact the number below. For patients who have questions please contact the health ocular care technician that requested your imaging first. Electronically signed by: Lana Reinoso, [facility] ([phone]), at 09/16/2024 6:[address] Head wo Contrast (Generic) (Exam End: 09/16/2024 11:21 PM) Result Value WORKSTATION ID [id number] Impression CT head: 1. Interval craniotomy with residual or recurrent hemorrhage right temporal and parietal lobe. 2. New hemorrhage right [...] in the care of this patient. If you are a health care provider and have any questions regarding this report, please contact the number below. For patients who have questions please contact the health ocular care technician that requested your imaging first. Electronically signed by: Armando Pan MD, [facility] ([phone]), at 09/17/2024 1:[address] Venogram Brain (Exam End: 09/16/2024 11:21 PM) Result Value WORKSTATION ID [id number] Impression CT head: 1. Interval craniotomy with residual or recurrent hemorrhage right temporal and parietal lobe. 2. New hemorrhage right [...] in the care of this patient. If you are a health care provider and have any questions regarding this report, please contact the number below. For patients who have questions please contact the health ocular care technician that requested your imaging first. Electronically signed by: Armando Pan MD, [facility] ([phone]), at 09/17/2024 1:42 AM XR Chest One View (Exam End: 09/16/2024 11:00 PM) Result Value WORKSTATION ID [id number] Impression Satisfactorily positioned enteric and endotracheal tubes. Left lower lobe atelectasis versus pneumonia. Thank you for letting us participate in the care of this patient. If you are a health care provider and have any questions regarding this report, please contact the number below. For patients who have questions please contact the health ocular care technician that requested your imaging first. Electronically signed by: Pamela Beard MD, [facility] ([phone]), at 09/17/2024 12:09 AM XR Abdomen 1 view (Generic) (Exam End: 09/16/2024 11:00 PM) Result Value WORKSTATION ID [id number] Impression Satisfactorily positioned enteric and endotracheal tubes. Left lower lobe atelectasis versus pneumonia. Thank you for letting us participate in the care of this patient. If you are a health care provider and have any questions regarding this report, please contact the number below. For patients who have questions please contact the health ocular care technician that requested your imaging first. Electronically signed by: Pamela Beard MD, [facility] ([phone]), at 09/17/2024 12:[address] Head wo Contrast (Generic) (Exam End: 09/17/2024 4:51 AM) Result Value WORKSTATION ID [id number] Impression Increased size and density of dominant right parietal hematoma, and of hemorrhage extending medially into the basal ganglia. Foci of thalamocapsular hemorrhage on the right are stable. No evidence of progressive intraventricular hemorrhage or ventricular dilation. No definitive increase in leftward midline shift or herniation. Thank you for letting us participate in the care of this patient. If you are a health care provider and have any questions regarding this report, please contact the number below. For patients who have questions please contact the health ocular care technician that requested your imaging first. Electronically signed by: Elvin Bolden DO, [facility] ([phone]), at 09/17/2024 8:38 AM XR Chest One View (Exam End: 09/17/2024 2:13 PM) Result Value WORKSTATION ID [id number] Impression 1. No focal opacity in lung 2. Pulmonary edema, progressed since last examination. 3. Tip of ET tube is 23 mm superior cuff to jonathan. Consider adjustment. 4. Sidehole and tip of NG tube is below the diaphragm. Thank you for letting us participate in the care of this patient. If you are a health care provider and have any questions regarding this report, please contact the number below. For patients who have questions please contact the health ocular care technician that requested your imaging first. Electronically signed by: Zoey Zabala MD, [facility] ([phone]), at 09/17/2024 2:43 PM XR Chest One View (Exam End: 09/18/2024 8:43 AM) Result Value WORKSTATION ID [id number] Impression Tubes and lines as described. Blunting of the left costophrenic angle suggests tiny layering left effusion with associated left basilar consolidation/atelectasis Thank you for letting us participate in the care of this patient. If you are a health care provider and have any questions regarding this report, please contact the number below. For patients who have questions please contact the health ocular care technician that requested your imaging first. Abdomen 1 view (Generic) (Exam End: 09/18/2024 12:31 PM) Result Value WORKSTATION ID [id number] Impression Dobbhoff tube tip along the greater curve of the stomach. Thank you for letting us participate in the care of this patient. If you are a health care provider and have any questions regarding this report, please contact the number below. For patients who have questions please contact the health ocular care technician that requested your imaging first. Brain wwo Contrast (Generic) (Exam End: 09/19/2024 5:43 PM) Result Value WORKSTATION ID [id number] Impression Unchanged size of large right cerebral hemisphere ICH status post partial evacuation. Numerous small foci of decreased acute infarction both along and separate from the site of hemorrhage. These foci are present in both cerebral hemispheres and have a pattern most consistent with embolic infarction. No evidence of [employer] malignancy Thank you for letting us participate in the care of this patient. If you are a health care provider and have any questions regarding this report, please contact the number below. For patients who have questions please contact the health ocular care technician that requested your imaging first. Electronically signed by: Rios Swartz MD, [facility] ([phone]), at 09/20/2024 8:[address] Head wo Contrast (Generic) (Exam End: 09/21/2024 3:50 AM) Result Value WORKSTATION ID [id number] Impression Stable hemorrhage right temporal, parietal, right posterior limb internal capsule and right thalamus. Mild progression of vasogenic edema adjacent to hemorrhage. Similar pattern and extent of local and generalized mass effect with stable subfalcine herniation and uncal herniation. Thank you for letting us participate in the care of this patient. If you are a health care provider and have any questions regarding this report, please contact the number below. For patients who have questions please contact the health ocular care technician that requested your imaging first. Electronically signed by: Armando Pan MD, [facility] ([phone]), at 09/21/2024 4:55 AM XR Abdomen 1 view (Generic) (Exam End: 09/21/2024 2:01 PM) Result Value WORKSTATION ID [id number] Impression Dobbhoff tube and enteric tube sidehole and tip is projecting over the expected location of the stomach. I have personally reviewed the image(s) and the resident's interpretation and agree with the findings, Shraddha Cox MD at 09/21/2024 3:40 PM Thank you for letting us participate in the care of this patient. If you are a health care provider and have any questions regarding this report, please contact the number below. For patients who have questions please contact the health ocular care technician that requested your imaging first. Electronically signed by: Shraddha Cox MD, [facility] ([phone]), at 09/21/2024 3:40 PM XR Chest One View (Exam End: 09/21/2024 2:01 PM) Result Value WORKSTATION ID [id number] Impression ET tube with tip projecting approximately 1.4 cm above the jonathan. Recommend retracting approximately 2 cm and follow-up imaging. New left basilar atelectasis and/or small pleural effusion. Aspiration or pneumonia could also this appearance. I Sacha Shipley MD discussed the results (Impression #1) with Bonnie Vazquez on 09/21/2024 4:42 PM and verified that the results were understood. I have personally reviewed the image(s) and the resident's interpretation and agree with the findings, Octavio Scott MD at 09/21/2024 5:09 PM Thank you for letting us participate in the care of this patient. If you are a health care provider and have any questions regarding this report, please contact the number below. For patients who have questions please contact the health ocular care technician that requested your imaging first. Electronically signed by: Octavio Scott MD, [facility] ([phone]), at 09/21/2024 5:[address] Head wo Contrast (Generic) (Exam End: 09/22/2024 4:02 AM) Result Value WORKSTATION ID [id number] Impression Stable head CT status post removal of subcutaneous drain. No new or enlarging hemorrhage. Stable pattern of mass effect Thank you for letting us participate in the care of this patient. If you are a health care provider and have any questions regarding this report, please contact the number below. For patients who have questions please contact the health ocular care technician that requested your imaging first. Electronically signed by: Armando Pan MD, [facility] ([phone]), at 09/22/2024 4:[address] Angiogram Chest for Pulmonary Embolus w Contrast (Exam End: 09/26/2024 1:37 PM) Result Value WORKSTATION ID [id number] Impression 1. No pulmonary embolism. 2. Pulmonary edema. 3. Bibasilar atelectasis. Superimposed patchy airspace opacity in the left lower lobe may represent atelectasis versus pneumonia. 4. Mild emphysema. 5. Mild cardiomegaly. Left atrial appendage occlusion device in situ. Mild multifocal coronary atherosclerosis. Correlation with echocardiography may be of benefit. 6. Unexpected Findin mm indeterminant left adrenal nodule. Per ACR white paper guidelines, follow-up CT of the Abdomen (Adrenal protocol - without and with intravenous contrast) is recommended in one year. 7. Mild sigmoid diverticulosis coli without secondary signs of acute diverticulitis. 8. Interval development of anasarca, which may be related to hypervolemia, hypoproteinemia, or combination thereof. 9. Endotracheal catheter in situ with tip 4 mm above the jonathan. Recommend retraction. 10. Enteric catheter in situ with tip terminating in the gastric pylorus. 11. Hill catheter in situ. Persistent distention of the urinary bladder. Correlation with catheter functionality is recommended. 12. Rectal catheter in situ. Thank you for letting us participate in the care of this patient. If you are a health care provider and have any questions regarding this report, please contact the number below. For patients who have questions please contact the health ocular care technician that requested your imaging first. Electronically signed by: Marvin Decker DO, [facility] ([phone]), at 09/26/2024 1:[address] Head wo Contrast (Generic) (Exam End: 09/26/2024 1:37 PM) Result Value WORKSTATION ID [id number] Impression 1. Stable right-sided parenchymal and subdural hemorrhages, associated mass effect and midline shift. 2. Stable left intraventricular hemorrhage. 3. No new or enlarging hemorrhages or extra-axial collections. Thank you for letting us participate in the care of this patient. If you are a health care provider and have any questions regarding this report, please contact the number below. For patients who have questions please contact the health ocular care technician that requested your imaging first. Electronically signed by: Smiley Cordova MD, [facility] ([phone]), at 09/26/2024 2:[address] Abdomen & Pelvis w Contrast (Exam End: 09/26/2024 1:37 PM) Result Value WORKSTATION ID [id number] Impression 1. No pulmonary embolism. 2. Pulmonary edema. 3. Bibasilar atelectasis. Superimposed patchy airspace opacity in the left lower lobe may represent atelectasis versus pneumonia. 4. Mild emphysema. 5. Mild cardiomegaly. Left atrial appendage occlusion device in situ. Mild multifocal coronary atherosclerosis. Correlation with echocardiography may be of benefit. 6. Unexpected Findin mm indeterminant left adrenal nodule. Per ACR white paper guidelines, follow-up CT of the Abdomen (Adrenal protocol - without and with intravenous contrast) is recommended in one year. 7. Mild sigmoid diverticulosis coli without secondary signs of acute diverticulitis. 8. Interval development of anasarca, which may be related to hypervolemia, hypoproteinemia, or combination thereof. 9. Endotracheal catheter in situ with tip 4 mm above the jonathan. Recommend retraction. 10. Enteric catheter in situ with tip terminating in the gastric pylorus. 11. Hill catheter in situ. Persistent distention of the urinary bladder. Correlation with catheter functionality is recommended. 12. Rectal catheter in situ. Thank you for letting us participate in the care of this patient. If you are a health care provider and have any questions regarding this report, please contact the number below. For patients who have questions please contact the health ocular care technician that requested your imaging first. Electronically signed by: Marvin Decker DO, [facility] ([phone]), at 09/26/2024 1:54 PM XR Chest One View (Exam End: 09/28/2024 4:06 AM) Result Value WORKSTATION ID [id number] Impression 1. Limited examination. 2. Interval removal of the endotracheal catheter. 3. Stable position of other medical hardware. 4. Decreased but persistent patchy left retrocardiac airspace opacity, may be resolving atelectasis or pneumonia. Thank you for letting us participate in the care of this patient. If you are a health care provider and have any questions regarding this report, please contact the number below. For patients who have questions please contact the health ocular care technician that requested your imaging first. Electronically signed by: Marvin Decker DO, [facility] ([phone]), at 09/28/2024 4:12 AM XR Chest One View (Exam End: 09/28/2024 7:58 PM) Result Value WORKSTATION ID [id number] Impression 1. Slightly increased opacity in the left lower lung which may be due to atelectasis, aspiration or pneumonia. 2. Small bilateral pleural effusions. Thank you for letting us participate in the care of this patient. If you are a health care provider and have any questions regarding this report, please contact the number below. For patients who have questions please contact the health ocular care technician that requested your imaging first. Electronically signed by: Sammy Story MD, [facility] ([phone]), at 09/28/2024 8:09 PM XR Chest One View (Exam End: 09/29/2024 1:13 PM) Result Value WORKSTATION ID [id number] Impression 1. Limited examination. 2. Stable position of medical hardware. 3. The lung volumes are decreased, which accentuates the pulmonary vascular markings and cardiac silhouette. 4. Accounting for this, a stable mild component of congestive heart failure / fluid overload is suspected. 5. Stable moderate cardiomegaly. 6. Possible inferior subluxation of the left humerus. Correlation with patient symptomatology is recommended. If clinically indicated, further evaluation with dedicated left shoulder radiographs can be obtained. Thank you for letting us participate in the care of this patient. If you are a health care provider and have any questions regarding this report, please contact the number below. For patients who have questions please contact the health ocular care technician that requested your imaging first. Electronically signed by: Marvin Decker DO, [facility] ([phone]), at 09/30/2024 12:[address] Head wo Contrast (Generic) (Exam End: 10/04/2024 1:40 AM) Result Value WORKSTATION ID [id number] Impression 1. Overall interval improvement of the mass effect on the right hemisphere with evolution of blood products within the parenchyma post craniotomy. 2. Mild interval increase in extra-axial fluid inferior margin of the craniotomy. 3. Mild interval increase in size of third and lateral ventricles as well as peripheral CSF spaces 4. No new hemorrhage or infarction Thank you for letting us participate in the care of this patient. If you are a health care provider and have any questions regarding this report, please contact the number below. For patients who have questions please contact the health ocular care technician that requested your imaging first. Electronically signed by: Armando Pan MD, [facility] ([phone]), at 10/04/2024 2:12 AM MRI Brain wwo Contrast (Generic) (Exam End: 10/04/2024 10:30 PM) Result Value WORKSTATION ID [id number] Impression 1. Fluid collections in the right parietal lobe now showing some restricted diffusion, question abscess formation or hemorrhage. Fluid in the collections projecting deep to the craniotomy and at the margin of the craniotomy with restricted diffusion suggesting abscess formation or hemorrhage. 2. Fluid collections in the extra-axial space and adjacent to the craniotomy. These do not appear to demonstrate restricted diffusion and may represent a meningocele formation. 3. Interval decrease in mass effect compared to MRI of 09/19/2024. Thank you for letting us participate in the care of this patient. If you are a health care provider and have any questions regarding this report, please contact the number below. For patients who have questions please contact the health ocular care technician that requested your imaging first. Electronically signed by: Armando Pan MD, [facility] ([phone]), at 10/05/2024 12:31 AM XR Chest One View (Exam End: 10/06/2024 10:59 AM) Result Value WORKSTATION ID [id number] Impression Improved but persistent retrocardiac patchy opacity which is favored to represent atelectasis although underlying acute infectious/inflammatory process cannot be excluded. I have personally reviewed the image(s) and the resident's interpretation and agree with the findings, MICHELLE ARSHAD MD at 10/06/2024 3:00 PM Thank you for letting us participate in the care of this patient. If you are a health care provider and have any questions regarding this report, please contact the number below. For patients who have questions please contact the health ocular care technician that requested your imaging first. Electronically signed by: MICHELLE ARSHAD MD, [facility] ([phone]), at 10/06/2024 3:00 PM XR Fluoro Esophagram (Modified/Video Swallow Pharynx) (Exam End: 10/08/2024 4:10 PM) Result Value WORKSTATION ID [id number] Impression Abnormal modified barium swallow with silent aspiration. Please see Speech Language Pathology clinical notes for further detail. I have personally reviewed the image(s) and the resident's interpretation and agree with the findings, Victor Manuel Smith MD at 10/08/2024 4:49 PM Thank you for letting us participate in the care of this patient. If you are a health care provider and have any questions regarding this report, please contact the number below. For patients who have questions please contact the health ocular care technician that requested your imaging first. Electronically signed by: Victor Manuel Smith MD, [facility] ([phone]), at 10/08/2024 4:[address] Head wo Contrast (Generic) (Exam End: 10/07/2024 3:25 PM) Result Value WORKSTATION ID [id number] Impression 1. Interval decreased prominence of RIGHT parenchymal hemorrhage with unchanged RIGHT holohemispheric mass effect and RIGHT to LEFT midline shift. 2. No new hemorrhages. I have personally reviewed the image(s) and the resident's interpretation and agree with the findings, Domingo Puentes at 10/07/2024 4:11 PM Thank you for letting us participate in the care of this patient. If you are a health care provider and have any questions regarding this report, please contact the number below. For patients who have questions please contact the health ocular care technician that requested your imaging first. Electronically signed by: Domingo Puentes [facility] ([phone]), at 10/07/2024 4:11 PM ASSESSMENT & PLAN Lucero Bruno 74 y.o. female with PMHx RIGHT occipital hemorrhage, chronic a-fib presented for watchman procedure. Patient developed headache after procedure and was taken to CT where she was found to have RIGHT IPH with mass effect and midline shift s/p craniotomy. 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 Still on BSA for UTI, awaiting cx data. 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 - Continue Amlodipine 5mg daily - Continue diltiazem 90mg q6 #Pulm - - goal SpO2> 94% - O2 as needed - nebs PRN #GI - >dysphagia - follow up [employer] recs - Sips and Chips (Hold Meds) - Tube feeds - maintain bowel reg Last Bowel Movement: 10/10/24 - GI ppx-protonix 40mg - PEG tube placed 10/04 #FEN/ - - maintain euvolemia, I=O - Goal Na 135-145, K > 4, Mg > 1 # Heme - - goal Hgb > 7, INR < 1.5, Platelets > 50k - DVT ppx: Lovenox, SCDs # Endo - - goal glucose 120-180 Recent Labs 09/17/24 0039 05/06/24 0548 HA1C 6.1* 6.0* - sliding scale insulin (Resistant) - Tube feed assoc insulin - diabetes management team following # ID - > Leukocytosis > Pneumonia > Respiratory Distress, resolved >UTI - for temp > 38C --> UA, CXR, blood cx, sputum cx - tylenol PRN - repeat CXR 10/06 - Completed Zosyn (09/24 - 09/29) - CBC - UTI: cefepime IV until cx - C. Diff negative # Other - Activity: as tolerated - Dispo: Shelter facility - Last BM: Last Bowel Movement: 10/10/24 - code status: Attempt Cardiopulmonary Resuscitation - Inpatient Patient Lines/Drains/Airways Status Active Tubes/Lines/Drains Name Placement date Placement time Site Days PIV 10/06/24 1416 22 gauge;1.75 in length median vein (underside of arm), right 10/06/24 1416 -- 5 External Catheter 10/06/24 1712 10/06/24 1712 -- 5 Enterostomy Tube 10/04/24 1236 gastrostomy tube with balloon midline 10/04/24 1236 -- 7 Please page Vascular Neurology with any questions, #[id number] ADRIANA Aguirre Department [place] [address] Associated attestation - Karli Morales MD - 10/11/2024 1:47 PM EST This patient was seen in conjunction with Donnie Connor. I performed the majority of this shared visit based on time. 65 minutes were spent on date of visit, including non-face to face time. (30 JESSI min, 35 min my time) Karli Morales MD 74 yo woman here with R occipital IPH. On exam she is awake, alert, following commands R gaze preference. L sided weakness and increased tone in arm. R arm/leg antigravity. 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 Treating UTI, follow urine cx, Diabetes management team engaged for BG. Trazodone for sleep. * Ravi Dickson PA - 10/10/2024 9:29 AM EST Images from the original note were not included. VASCULAR NEUROLOGY DAILY PROGRESS NOTE Admit Date 09/16/2024 Responsible Attending: Karli Morales MD Primary Provider: Leila Manjarrez [phone] Hospital Day: Hospital Day: 25 Patient ID 74 y.o. female with PMHx RIGHT occipital hemorrhage, chronic a-fib presented for watchman procedure. Patient developed headache after procedure and was taken to CT where she was found to have RIGHT IPH with mass effect and midline shift s/p craniotomy. 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 Course complicated by dysphagia requiring PEG tube placement. 24hr Events: - prn tylenol x1 and tramadol 25mg once for head/neck pain - UA+ yesterday, empiric cefepime started per empiric guidelines - complains of mild back pain related to positioning EXAM Last value Range last 24 hrs Temperature Temp: 36.5 ??C (97.7 ??F) Temp: [36.5 ??C (97.7 ??F)-36.6 ??C (97.9 ??F)] Heart Rate Heart Rate: 98 Heart Rate: -- Blood Pressure BP: 122/57 BP: (112-159)/(46-85) Respiratory Rate Resp: 16 Resp: [16] SpO2 SpO2: 94 % SpO2: [93 %-99 %] GENERAL - Alert, awake. States her name and hospital. Names pencil, glasses. CN - PERRL, right gaze preference but crosses midline. No blink to threat on left. MOTOR - LUE with clasp knife rigidity LUE/LLE 0/5 RUE/RLE able to sustain gravity REFLEX - Babinski present LLE SENSATION - intact sensation on right, denies light touch on the left COORDINATION - FTN intact on RUE GAIT - not assessed DATA Intake/Output Summary (Last 24 hours) at 10/10/2024 1043 Last data filed at 10/10/2024 0400 Gross per 24 hour Intake 180 ml Output 650 ml Net -470 ml Labs Recent Labs 10/10/244310/09/245810/08/2411210/07/24 0112 10/06/24 0033 WBC 10.15* 12.45* 11.43* 15.48* 16.59* HGB 11.3* 10.4* 10.0* 10.7* 10.8* HCT 34.7* 32.1* 31.2* 32.4* 32.9* PLATELET 230 207 190 211 237 NEUTROABS 7.26* 9.95* 9.01* 13.16* 14.40* Recent Labs 10/10/244310/09/249 10/08/24 0113 10/07/24 0112 10/06/24 0033 NA 138 140 138 138 138 K 4.2 4.2 4.4 4.0 4.3 CL 101 102 104 102 101 CO2 26 28 27 27 26 BUN 22* 25* 26* 17 21* CREATININE 0.34* 0.36* 0.39* 0.36* 0.45* GLUCOSE 195 159 186 190 211* Recent Labs 10/10/244310/09/245810/08/24 011 CALCIUM 9.2 9.5 8.9 MAGNESIUM 0.78 0.81 0.79 PHOS 3.1 3.5 3.3 Lipid Panel Lab Results Component Value Date CHLPL 203 09/17/2024 CHLPL 135 05/06/2024 HDL 45 09/17/2024 HDL 46 05/06/2024 TRIG 95 09/20/2024 TRIG 101 05/06/2024 LDLCHOL 69 05/06/2024 LDLDIRECT 133 09/17/2024 Lab Results Component Value Date HA1C 6.1 (H) 09/17/2024 Micro: Microbiology Results (last 7 days) No results found for the last 168 hours. Imaging/EKG Results for orders placed or performed during the hospital encounter of 09/16/24 CT Head wo Contrast (Generic) (Exam End: 09/16/2024 5:26 PM) Result Value WORKSTATION ID [id number] Impression Interval expansion of now large right-sided temporal occipital intraparenchymal hemorrhage with significant mass effect resulting in 1 cm leftward midline shift. Per chart review, this patient was seen by neurosurgery and taken emergently to the OR. I have personally reviewed the image(s) and the resident's interpretation and agree with the findings, Lana Reinoso at 09/16/2024 6:01 PM Thank you for letting us participate in the care of this patient. If you are a health care provider and have any questions regarding this report, please contact the number below. For patients who have questions please contact the health ocular care technician that requested your imaging first. Electronically signed by: Lana Reinoso [facility] ([phone]), at 09/16/2024 6:[address] Head wo Contrast (Generic) (Exam End: 09/16/2024 11:21 PM) Result Value WORKSTATION ID [id number] Impression CT head: 1. Interval craniotomy with residual or recurrent hemorrhage right temporal and parietal lobe. 2. New hemorrhage right [...] in the care of this patient. If you are a health care provider and have any questions regarding this report, please contact the number below. For patients who have questions please contact the health ocular care technician that requested your imaging first. Electronically signed by: Armando Pan MD, [facility] ([phone]), at 09/17/2024 1:[address] Venogram Brain (Exam End: 09/16/2024 11:21 PM) Result Value WORKSTATION ID [id number] Impression CT head: 1. Interval craniotomy with residual or recurrent hemorrhage right temporal and parietal lobe. 2. New hemorrhage right [...] in the care of this patient. If you are a health care provider and have any questions regarding this report, please contact the number below. For patients who have questions please contact the health ocular care technician that requested your imaging first. Electronically signed by: Armando Pan MD, [facility] ([phone]), at 09/17/2024 1:42 AM XR Chest One View (Exam End: 09/16/2024 11:00 PM) Result Value WORKSTATION ID [id number] Impression Satisfactorily positioned enteric and endotracheal tubes. Left lower lobe atelectasis versus pneumonia. Thank you for letting us participate in the care of this patient. If you are a health care provider and have any questions regarding this report, please contact the number below. For patients who have questions please contact the health ocular care technician that requested your imaging first. Electronically signed by: Pamela Beard MD, [facility] ([phone]), at 09/17/2024 12:09 AM XR Abdomen 1 view (Generic) (Exam End: 09/16/2024 11:00 PM) Result Value WORKSTATION ID [id number] Impression Satisfactorily positioned enteric and endotracheal tubes. Left lower lobe atelectasis versus pneumonia. Thank you for letting us participate in the care of this patient. If you are a health care provider and have any questions regarding this report, please contact the number below. For patients who have questions please contact the health ocular care technician that requested your imaging first. Electronically signed by: Pamela Beard MD, [facility] ([phone]), at 09/17/2024 12:[address] Head wo Contrast (Generic) (Exam End: 09/17/2024 4:51 AM) Result Value WORKSTATION ID [id number] Impression Increased size and density of dominant right parietal hematoma, and of hemorrhage extending medially into the basal ganglia. Foci of thalamocapsular hemorrhage on the right are stable. No evidence of progressive intraventricular hemorrhage or ventricular dilation. No definitive increase in leftward midline shift or herniation. Thank you for letting us participate in the care of this patient. If you are a health care provider and have any questions regarding this report, please contact the number below. For patients who have questions please contact the health ocular care technician that requested your imaging first. Electronically signed by: Elvin Bolden DO, [facility] ([phone]), at 09/17/2024 8:38 AM XR Chest One View (Exam End: 09/17/2024 2:13 PM) Result Value WORKSTATION ID [id number] Impression 1. No focal opacity in lung 2. Pulmonary edema, progressed since last examination. 3. Tip of ET tube is 23 mm superior cuff to jonathan. Consider adjustment. 4. Sidehole and tip of NG tube is below the diaphragm. Thank you for letting us participate in the care of this patient. If you are a health care provider and have any questions regarding this report, please contact the number below. For patients who have questions please contact the health ocular care technician that requested your imaging first. Electronically signed by: Zoey Zabala MD, [facility] ([phone]), at 09/17/2024 2:43 PM XR Chest One View (Exam End: 09/18/2024 8:43 AM) Result Value WORKSTATION ID [id number] Impression Tubes and lines as described. Blunting of the left costophrenic angle suggests tiny layering left effusion with associated left basilar consolidation/atelectasis Thank you for letting us participate in the care of this patient. If you are a health care provider and have any questions regarding this report, please contact the number below. For patients who have questions please contact the health ocular care technician that requested your imaging first. Abdomen 1 view (Generic) (Exam End: 09/18/2024 12:31 PM) Result Value WORKSTATION ID [id number] Impression Dobbhoff tube tip along the greater curve of the stomach. Thank you for letting us participate in the care of this patient. If you are a health care provider and have any questions regarding this report, please contact the number below. For patients who have questions please contact the health ocular care technician that requested your imaging first. Brain wwo Contrast (Generic) (Exam End: 09/19/2024 5:43 PM) Result Value WORKSTATION ID [id number] Impression Unchanged size of large right cerebral hemisphere ICH status post partial evacuation. Numerous small foci of decreased acute infarction both along and separate from the site of hemorrhage. These foci are present in both cerebral hemispheres and have a pattern most consistent with embolic infarction. No evidence of [employer] malignancy Thank you for letting us participate in the care of this patient. If you are a health care provider and have any questions regarding this report, please contact the number below. For patients who have questions please contact the health ocular care technician that requested your imaging first. Electronically signed by: Rios Swartz MD, [facility] ([phone]), at 09/20/2024 8:[address] Head wo Contrast (Generic) (Exam End: 09/21/2024 3:50 AM) Result Value WORKSTATION ID [id number] Impression Stable hemorrhage right temporal, parietal, right posterior limb internal capsule and right thalamus. Mild progression of vasogenic edema adjacent to hemorrhage. Similar pattern and extent of local and generalized mass effect with stable subfalcine herniation and uncal herniation. Thank you for letting us participate in the care of this patient. If you are a health care provider and have any questions regarding this report, please contact the number below. For patients who have questions please contact the health ocular care technician that requested your imaging first. Electronically signed by: Armando Pan MD, [facility] ([phone]), at 09/21/2024 4:55 AM XR Abdomen 1 view (Generic) (Exam End: 09/21/2024 2:01 PM) Result Value WORKSTATION ID [id number] Impression Dobbhoff tube and enteric tube sidehole and tip is projecting over the expected location of the stomach. I have personally reviewed the image(s) and the resident's interpretation and agree with the findings, Shraddha Cox MD at 09/21/2024 3:40 PM Thank you for letting us participate in the care of this patient. If you are a health care provider and have any questions regarding this report, please contact the number below. For patients who have questions please contact the health ocular care technician that requested your imaging first. Electronically signed by: Shraddha Cox MD, [facility] ([phone]), at 09/21/2024 3:40 PM XR Chest One View (Exam End: 09/21/2024 2:01 PM) Result Value WORKSTATION ID [id number] Impression ET tube with tip projecting approximately 1.4 cm above the jonathan. Recommend retracting approximately 2 cm and follow-up imaging. New left basilar atelectasis and/or small pleural effusion. Aspiration or pneumonia could also this appearance. I Sacha Shipley MD discussed the results (Impression #1) with Bonnie Vazquez on 09/21/2024 4:42 PM and verified that the results were understood. I have personally reviewed the image(s) and the resident's interpretation and agree with the findings, Octavio Scott MD at 09/21/2024 5:09 PM Thank you for letting us participate in the care of this patient. If you are a health care provider and have any questions regarding this report, please contact the number below. For patients who have questions please contact the health ocular care technician that requested your imaging first. Electronically signed by: Octavio Scott MD, [facility] ([phone]), at 09/21/2024 5:[address] Head wo Contrast (Generic) (Exam End: 09/22/2024 4:02 AM) Result Value WORKSTATION ID [id number] Impression Stable head CT status post removal of subcutaneous drain. No new or enlarging hemorrhage. Stable pattern of mass effect Thank you for letting us participate in the care of this patient. If you are a health care provider and have any questions regarding this report, please contact the number below. For patients who have questions please contact the health ocular care technician that requested your imaging first. Electronically signed by: Armando Pan MD, [facility] ([phone]), at 09/22/2024 4:[address] Angiogram Chest for Pulmonary Embolus w Contrast (Exam End: 09/26/2024 1:37 PM) Result Value WORKSTATION ID [id number] Impression 1. No pulmonary embolism. 2. Pulmonary edema. 3. Bibasilar atelectasis. Superimposed patchy airspace opacity in the left lower lobe may represent atelectasis versus pneumonia. 4. Mild emphysema. 5. Mild cardiomegaly. Left atrial appendage occlusion device in situ. Mild multifocal coronary atherosclerosis. Correlation with echocardiography may be of benefit. 6. Unexpected Findin mm indeterminant left adrenal nodule. Per ACR white paper guidelines, follow-up CT of the Abdomen (Adrenal protocol - without and with intravenous contrast) is recommended in one year. 7. Mild sigmoid diverticulosis coli without secondary signs of acute diverticulitis. 8. Interval development of anasarca, which may be related to hypervolemia, hypoproteinemia, or combination thereof. 9. Endotracheal catheter in situ with tip 4 mm above the jonathan. Recommend retraction. 10. Enteric catheter in situ with tip terminating in the gastric pylorus. 11. Hill catheter in situ. Persistent distention of the urinary bladder. Correlation with catheter functionality is recommended. 12. Rectal catheter in situ. Thank you for letting us participate in the care of this patient. If you are a health care provider and have any questions regarding this report, please contact the number below. For patients who have questions please contact the health ocular care technician that requested your imaging first. Electronically signed by: Marvin Decker DO, [facility] ([phone]), at 09/26/2024 1:[address] Head wo Contrast (Generic) (Exam End: 09/26/2024 1:37 PM) Result Value WORKSTATION ID [id number] Impression 1. Stable right-sided parenchymal and subdural hemorrhages, associated mass effect and midline shift. 2. Stable left intraventricular hemorrhage. 3. No new or enlarging hemorrhages or extra-axial collections. Thank you for letting us participate in the care of this patient. If you are a health care provider and have any questions regarding this report, please contact the number below. For patients who have questions please contact the health ocular care technician that requested your imaging first. Electronically signed by: Smiley Cordova MD, [facility] ([phone]), at 09/26/2024 2:[address] Abdomen & Pelvis w Contrast (Exam End: 09/26/2024 1:37 PM) Result Value WORKSTATION ID [id number] Impression 1. No pulmonary embolism. 2. Pulmonary edema. 3. Bibasilar atelectasis. Superimposed patchy airspace opacity in the left lower lobe may represent atelectasis versus pneumonia. 4. Mild emphysema. 5. Mild cardiomegaly. Left atrial appendage occlusion device in situ. Mild multifocal coronary atherosclerosis. Correlation with echocardiography may be of benefit. 6. Unexpected Findin mm indeterminant left adrenal nodule. Per ACR white paper guidelines, follow-up CT of the Abdomen (Adrenal protocol - without and with intravenous contrast) is recommended in one year. 7. Mild sigmoid diverticulosis coli without secondary signs of acute diverticulitis. 8. Interval development of anasarca, which may be related to hypervolemia, hypoproteinemia, or combination thereof. 9. Endotracheal catheter in situ with tip 4 mm above the jonathan. Recommend retraction. 10. Enteric catheter in situ with tip terminating in the gastric pylorus. 11. Hill catheter in situ. Persistent distention of the urinary bladder. Correlation with catheter functionality is recommended. 12. Rectal catheter in situ. Thank you for letting us participate in the care of this patient. If you are a health care provider and have any questions regarding this report, please contact the number below. For patients who have questions please contact the health ocular care technician that requested your imaging first. Chest One View (Exam End: 09/28/2024 4:06 AM) Result Value WORKSTATION ID [id number] Impression 1. Limited examination. 2. Interval removal of the endotracheal catheter. 3. Stable position of other medical hardware. 4. Decreased but persistent patchy left retrocardiac airspace opacity, may be resolving atelectasis or pneumonia. Thank you for letting us participate in the care of this patient. If you are a health care provider and have any questions regarding this report, please contact the number below. For patients who have questions please contact the health ocular care technician that requested your imaging first. Chest One View (Exam End: 09/28/2024 7:58 PM) Result Value WORKSTATION ID [id number] Impression 1. Slightly increased opacity in the left lower lung which may be due to atelectasis, aspiration or pneumonia. 2. Small bilateral pleural effusions. Thank you for letting us participate in the care of this patient. If you are a health care provider and have any questions regarding this report, please contact the number below. For patients who have questions please contact the health ocular care technician that requested your imaging first. Electronically signed by: Sammy Story MD, [facility] ([phone]), at 09/28/2024 8:09 PM XR Chest One View (Exam End: 09/29/2024 1:13 PM) Result Value WORKSTATION ID [id number] Impression 1. Limited examination. 2. Stable position of medical hardware. 3. The lung volumes are decreased, which accentuates the pulmonary vascular markings and cardiac silhouette. 4. Accounting for this, a stable mild component of congestive heart failure / fluid overload is suspected. 5. Stable moderate cardiomegaly. 6. Possible inferior subluxation of the left humerus. Correlation with patient symptomatology is recommended. If clinically indicated, further evaluation with dedicated left shoulder radiographs can be obtained. Thank you for letting us participate in the care of this patient. If you are a health care provider and have any questions regarding this report, please contact the number below. For patients who have questions please contact the health ocular care technician that requested your imaging first. Electronically signed by: Marvin Decker DO, [facility] ([phone]), at 09/30/2024 12:[address] Head wo Contrast (Generic) (Exam End: 10/04/2024 1:40 AM) Result Value WORKSTATION ID [id number] Impression 1. Overall interval improvement of the mass effect on the right hemisphere with evolution of blood products within the parenchyma post craniotomy. 2. Mild interval increase in extra-axial fluid inferior margin of the craniotomy. 3. Mild interval increase in size of third and lateral ventricles as well as peripheral CSF spaces 4. No new hemorrhage or infarction Thank you for letting us participate in the care of this patient. If you are a health care provider and have any questions regarding this report, please contact the number below. For patients who have questions please contact the health ocular care technician that requested your imaging first. Electronically signed by: Armando Pan MD, [facility] ([phone]), at 10/04/2024 2:12 AM MRI Brain wwo Contrast (Generic) (Exam End: 10/04/2024 10:30 PM) Result Value WORKSTATION ID [id number] Impression 1. Fluid collections in the right parietal lobe now showing some restricted diffusion, question abscess formation or hemorrhage. Fluid in the collections projecting deep to the craniotomy and at the margin of the craniotomy with restricted diffusion suggesting abscess formation or hemorrhage. 2. Fluid collections in the extra-axial space and adjacent to the craniotomy. These do not appear to demonstrate restricted diffusion and may represent a meningocele formation. 3. Interval decrease in mass effect compared to MRI of 09/19/2024. Thank you for letting us participate in the care of this patient. If you are a health care provider and have any questions regarding this report, please contact the number below. For patients who have questions please contact the health ocular care technician that requested your imaging first. Chest One View (Exam End: 10/06/2024 10:59 AM) Result Value WORKSTATION ID [id number] Impression Improved but persistent retrocardiac patchy opacity which is favored to represent atelectasis although underlying acute infectious/inflammatory process cannot be excluded. I have personally reviewed the image(s) and the resident's interpretation and agree with the findings, MICHELLE ARSHAD MD at 10/06/2024 3:00 PM Thank you for letting us participate in the care of this patient. If you are a health care provider and have any questions regarding this report, please contact the number below. For patients who have questions please contact the health ocular care technician that requested your imaging first. Electronically signed by: MICHELLE ARSHAD MD, [facility] ([phone]), at 10/06/2024 3:00 PM XR Fluoro Esophagram (Modified/Video Swallow Pharynx) (Exam End: 10/08/2024 4:10 PM) Result Value WORKSTATION ID [id number] Impression Abnormal modified barium swallow with silent aspiration. Please see Speech Language Pathology clinical notes for further detail. I have personally reviewed the image(s) and the resident's interpretation and agree with the findings, Victor Manuel Smith MD at 10/08/2024 4:49 PM Thank you for letting us participate in the care of this patient. If you are a health care provider and have any questions regarding this report, please contact the number below. For patients who have questions please contact the health ocular care technician that requested your imaging first. Electronically signed by: Victor Manuel Smith MD, [facility] ([phone]), at 10/08/2024 4:[address] Head wo Contrast (Generic) (Exam End: 10/07/2024 3:25 PM) Result Value WORKSTATION ID [id number] Impression 1. Interval decreased prominence of RIGHT parenchymal hemorrhage with unchanged RIGHT holohemispheric mass effect and RIGHT to LEFT midline shift. 2. No new hemorrhages. I have personally reviewed the image(s) and the resident's interpretation and agree with the findings, Domingo Puentes at 10/07/2024 4:11 PM Thank you for letting us participate in the care of this patient. If you are a health care provider and have any questions regarding this report, please contact the number below. For patients who have questions please contact the health ocular care technician that requested your imaging first. Electronically signed by: Domingo Puentes [facility] ([phone]), at 10/07/2024 4:11 PM ASSESSMENT & PLAN Lucero Bruno 74 y.o. female with PMHx RIGHT occipital hemorrhage, chronic a-fib presented for watchman procedure. Patient developed headache after procedure and was taken to CT where she was found to have RIGHT IPH with mass effect and midline shift s/p craniotomy. 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 Course complicated by dysphagia requiring PEG tube placement. 10/10/24-Lucero Bruno is neurologically stable, with ongoing improvement. Deficits include left hemiplegia and left hemianopia. UA suggestive of UTI. Started empiric cefepime and will narrow when cultures result. Otherwise, MR for DC to SNF pending placement. 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 - Continue Amlodipine 5mg daily - Continue diltiazem 90mg q6 #Pulm - - goal SpO2> 94% - O2 as needed - nebs PRN #GI - >dysphagia - follow up [employer] recs - Sips and Chips (Hold Meds) - Tube feeds - maintain bowel reg Last Bowel Movement: 10/09/24 - GI ppx-protonix 40mg - PEG tube placed 10/04 #FEN/ - - maintain euvolemia, I=O - Goal Na 135-145, K > 4, Mg > 1 # Heme - - goal Hgb > 7, INR < 1.5, Platelets > 50k - DVT ppx: Lovenox, SCDs # Endo - - goal glucose 120-180 Recent Labs 09/17/24 0039 05/06/24 0548 HA1C 6.1* 6.0* - sliding scale insulin (Resistant) - Tube feed assoc insulin - diabetes management team following # ID - > Leukocytosis > Pneumonia > Respiratory Distress, resolved - for temp > 38C --> UA, CXR, blood cx, sputum cx - tylenol PRN - repeat CXR 10/06 - Completed Zosyn (09/24 - 09/29) - CBC - ID consult - C. Diff negative # Other - Activity: as tolerated - Dispo: Shelter facility - Last BM: Last Bowel Movement: 10/09/24 - code status: Attempt Cardiopulmonary Resuscitation - Inpatient Patient Lines/Drains/Airways Status Active Tubes/Lines/Drains Name Placement date Placement time Site Days PIV 10/06/24 1416 22 gauge;1.75 in length median vein (underside of arm), right 10/06/24 1416 -- 4 External Catheter 10/06/24 1712 10/06/24 1712 -- 4 Enterostomy Tube 10/04/24 1236 gastrostomy tube with balloon midline 10/04/24 1236 -- 6 Please page Vascular Neurology with any questions, #[id number] ADRIANA JONAS Department of Neurology [place] [phone] Associated attestation - Karli Morales MD - 10/10/2024 10:54 AM EST This patient was seen in conjunction with Ravi Dickson. I performed the majority of this shared visit based on time. 62 minutes were spent on date of visit, including non-face to face time. (28 JESSI min, 34 min my time) Karli Morales MD 74 yo woman here with R occipital IPH. On exam she is awake, alert, following commands R gaze preference. L sided weakness and increased tone in arm. R arm/leg antigravity. 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 Treating UTI, follow urine cx, Diabetes management team engaged for BG. Updated son, daughter in law and boyfriend at bedside about entire hosp course, prognosis and steps to go to SNF. * Ravi Dickson PA - 10/09/2024 4:57 PM EST Images from the original note were not included. VASCULAR NEUROLOGY DAILY PROGRESS NOTE Admit Date 09/16/2024 Responsible Attending: Karli Morales MD Primary Provider: Leila Manjarrez [phone] Hospital Day: Hospital Day: 24 Patient ID 74 y.o. female with PMHx RIGHT occipital hemorrhage, chronic a-fib presented for watchman procedure. Patient developed headache after procedure and was taken to CT where she was found to have RIGHT IPH with mass effect and midline shift s/p craniotomy. 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 Course complicated by dysphagia requiring PEG tube placement. 24hr Events: - no events - prn tylenol for pain - c/o burning with urination EXAM Last value Range last 24 hrs Temperature Temp: 36.8 ??C (98.2 ??F) Temp: [36.6 ??C (97.9 ??F)-36.8 ??C (98.2 ??F)] Heart Rate Heart Rate: 98 Heart Rate: -- Blood Pressure BP: 129/51 BP: (105-140)/(49-76) Respiratory Rate Resp: 17 Resp: [17] SpO2 SpO2: 93 % SpO2: [93 %-99 %] GENERAL - Alert, awake, no verbal output CN - PERRL, right gaze preference, unable to cross midline to left. No blink to threat on left. MOTOR - LUE with clasp knife rigidity LUE/LLE 0/5 RUE/RLE able to sustain gravity REFLEX - Babinski elicited strong withdrawal b/l SENSATION - intact sensation on right COORDINATION - FTN intact on RUE GAIT - not assessed DATA Intake/Output Summary (Last 24 hours) at 10/09/2024 1658 Last data filed at 10/09/2024 0600 Gross per 24 hour Intake 370 ml Output 600 ml Net -230 ml Labs Recent Labs 10/09/24 0059 10/08/24 0113 10/07/24 0112 10/06/24 0033 10/05/24 0008 WBC 12.45* 11.43* 15.48* 16.59* 13.56* HGB 10.4* 10.0* 10.7* 10.8* 10.8* HCT 32.1* 31.2* 32.4* 32.9* 33.5* PLATELET 207 190 211 237 241 NEUTROABS 9.95* 9.01* 13.16* 14.40* 11.69* Recent Labs 10/09/24 0059 10/08/24 0113 10/07/24 0112 10/06/24 0033 10/05/24 0008 NA 140 138 138 138 139 K 4.2 4.4 4.0 4.3 4.2 CL 102 104 102 101 103 CO2 28 27 27 26 29 BUN 25* 26* 17 21* 24* CREATININE 0.36* 0.39* 0.36* 0.45* 0.36* GLUCOSE 159 186 190 211* 136 Recent Labs 10/09/245810/08/243 10/07/24 0112 CALCIUM 9.5 8.9 9.0 MAGNESIUM 0.81 0.79 0.72 PHOS 3.5 3.3 2.6 Lipid Panel Lab Results Component Value Date CHLPL 203 09/17/2024 CHLPL 135 05/06/2024 HDL 45 09/17/2024 HDL 46 05/06/2024 TRIG 95 09/20/2024 TRIG 101 05/06/2024 LDLCHOL 69 05/06/2024 LDLDIRECT 133 09/17/2024 Lab Results Component Value Date HA1C 6.1 (H) 09/17/2024 Micro: Microbiology Results (last 7 days) No results found for the last 168 hours. Imaging/EKG Results for orders placed or performed during the hospital encounter of 09/16/24 CT Head wo Contrast (Generic) (Exam End: 09/16/2024 5:26 PM) Result Value WORKSTATION ID [id number] Impression Interval expansion of now large right-sided temporal occipital intraparenchymal hemorrhage with significant mass effect resulting in 1 cm leftward midline shift. Per chart review, this patient was seen by neurosurgery and taken emergently to the OR. I have personally reviewed the image(s) and the resident's interpretation and agree with the findings, Lana Reinoso at 09/16/2024 6:01 PM Thank you for letting us participate in the care of this patient. If you are a health care provider and have any questions regarding this report, please contact the number below. For patients who have questions please contact the health ocular care technician that requested your imaging first. Electronically signed by: Lana eRinoso, [facility] ([phone]), at 09/16/2024 6:[address] Head wo Contrast (Generic) (Exam End: 09/16/2024 11:21 PM) Result Value WORKSTATION ID [id number] Impression CT head: 1. Interval craniotomy with residual or recurrent hemorrhage right temporal and parietal lobe. 2. New hemorrhage right [...] in the care of this patient. If you are a health care provider and have any questions regarding this report, please contact the number below. For patients who have questions please contact the health ocular care technician that requested your imaging first. Electronically signed by: Armando Pan MD, [facility] ([phone]), at 09/17/2024 1:[address] Venogram Brain (Exam End: 09/16/2024 11:21 PM) Result Value WORKSTATION ID [id number] Impression CT head: 1. Interval craniotomy with residual or recurrent hemorrhage right temporal and parietal lobe. 2. New hemorrhage right [...] in the care of this patient. If you are a health care provider and have any questions regarding this report, please contact the number below. For patients who have questions please contact the health ocular care technician that requested your imaging first. Electronically signed by: Armando Pan MD, [facility] ([phone]), at 09/17/2024 1:42 AM XR Chest One View (Exam End: 09/16/2024 11:00 PM) Result Value WORKSTATION ID [id number] Impression Satisfactorily positioned enteric and endotracheal tubes. Left lower lobe atelectasis versus pneumonia. Thank you for letting us participate in the care of this patient. If you are a health care provider and have any questions regarding this report, please contact the number below. For patients who have questions please contact the health ocular care technician that requested your imaging first. Electronically signed by: Pamela Beard MD, [facility] ([phone]), at 09/17/2024 12:09 AM XR Abdomen 1 view (Generic) (Exam End: 09/16/2024 11:00 PM) Result Value WORKSTATION ID [id number] Impression Satisfactorily positioned enteric and endotracheal tubes. Left lower lobe atelectasis versus pneumonia. Thank you for letting us participate in the care of this patient. If you are a health care provider and have any questions regarding this report, please contact the number below. For patients who have questions please contact the health ocular care technician that requested your imaging first. Electronically signed by: Pamela Beard MD, [facility] ([phone]), at 09/17/2024 12:[address] Head wo Contrast (Generic) (Exam End: 09/17/2024 4:51 AM) Result Value WORKSTATION ID [id number] Impression Increased size and density of dominant right parietal hematoma, and of hemorrhage extending medially into the basal ganglia. Foci of thalamocapsular hemorrhage on the right are stable. No evidence of progressive intraventricular hemorrhage or ventricular dilation. No definitive increase in leftward midline shift or herniation. Thank you for letting us participate in the care of this patient. If you are a health care provider and have any questions regarding this report, please contact the number below. For patients who have questions please contact the health ocular care technician that requested your imaging first. Electronically signed by: Elvin Bolden DO, [facility] ([phone]), at 09/17/2024 8:38 AM XR Chest One View (Exam End: 09/17/2024 2:13 PM) Result Value WORKSTATION ID [id number] Impression 1. No focal opacity in lung 2. Pulmonary edema, progressed since last examination. 3. Tip of ET tube is 23 mm superior cuff to jonathan. Consider adjustment. 4. Sidehole and tip of NG tube is below the diaphragm. Thank you for letting us participate in the care of this patient. If you are a health care provider and have any questions regarding this report, please contact the number below. For patients who have questions please contact the health ocular care technician that requested your imaging first. Electronically signed by: Zoey Zabala MD, [facility] ([phone]), at 09/17/2024 2:43 PM XR Chest One View (Exam End: 09/18/2024 8:43 AM) Result Value WORKSTATION ID [id number] Impression Tubes and lines as described. Blunting of the left costophrenic angle suggests tiny layering left effusion with associated left basilar consolidation/atelectasis Thank you for letting us participate in the care of this patient. If you are a health care provider and have any questions regarding this report, please contact the number below. For patients who have questions please contact the health ocular care technician that requested your imaging first. Abdomen 1 view (Generic) (Exam End: 09/18/2024 12:31 PM) Result Value WORKSTATION ID [id number] Impression Dobbhoff tube tip along the greater curve of the stomach. Thank you for letting us participate in the care of this patient. If you are a health care provider and have any questions regarding this report, please contact the number below. For patients who have questions please contact the health ocular care technician that requested your imaging first. Brain wwo Contrast (Generic) (Exam End: 09/19/2024 5:43 PM) Result Value WORKSTATION ID [id number] Impression Unchanged size of large right cerebral hemisphere ICH status post partial evacuation. Numerous small foci of decreased acute infarction both along and separate from the site of hemorrhage. These foci are present in both cerebral hemispheres and have a pattern most consistent with embolic infarction. No evidence of [employer]OM[employer]BI[employer] DES[employer]ER malignancy Thank you for letting us participate in the care of this patient. If you are a health care provider and have any questions regarding this report, please contact the number below. For patients who have questions please contact the health ocular care technician that requested your imaging first. Electronically signed by: Rios Swartz MD, [facility] ([phone]), at 09/20/2024 8:[address] Head wo Contrast (Generic) (Exam End: 09/21/2024 3:50 AM) Result Value WORKSTATION ID [id number] Impression Stable hemorrhage right temporal, parietal, right posterior limb internal capsule and right thalamus. Mild progression of vasogenic edema adjacent to hemorrhage. Similar pattern and extent of local and generalized mass effect with stable subfalcine herniation and uncal herniation. Thank you for letting us participate in the care of this patient. If you are a health care provider and have any questions regarding this report, please contact the number below. For patients who have questions please contact the health ocular care technician that requested your imaging first. Electronically signed by: Armando Pan MD, [facility] ([phone]), at 09/21/2024 4:55 AM XR Abdomen 1 view (Generic) (Exam End: 09/21/2024 2:01 PM) Result Value WORKSTATION ID [id number] Impression Dobbhoff tube and enteric tube sidehole and tip is projecting over the expected location of the stomach. I have personally reviewed the image(s) and the resident's interpretation and agree with the findings, Shraddha Cox MD at 09/21/2024 3:40 PM Thank you for letting us participate in the care of this patient. If you are a health care provider and have any questions regarding this report, please contact the number below. For patients who have questions please contact the health ocular care technician that requested your imaging first. Electronically signed by: Shraddha Cox MD, [facility] ([phone]), at 09/21/2024 3:40 PM XR Chest One View (Exam End: 09/21/2024 2:01 PM) Result Value WORKSTATION ID [id number] Impression ET tube with tip projecting approximately 1.4 cm above the jonathan. Recommend retracting approximately 2 cm and follow-up imaging. New left basilar atelectasis and/or small pleural effusion. Aspiration or pneumonia could also this appearance. I Sacha Shipley MD discussed the results (Impression #1) with Bonnie Vazquez on 09/21/2024 4:42 PM and verified that the results were understood. I have personally reviewed the image(s) and the resident's interpretation and agree with the findings, Octavio Scott MD at 09/21/2024 5:09 PM Thank you for letting us participate in the care of this patient. If you are a health care provider and have any questions regarding this report, please contact the number below. For patients who have questions please contact the health ocular care technician that requested your imaging first. Electronically signed by: Octavio Scott MD, [facility] ([phone]), at 09/21/2024 5:[address] Head wo Contrast (Generic) (Exam End: 09/22/2024 4:02 AM) Result Value WORKSTATION ID [id number] Impression Stable head CT status post removal of subcutaneous drain. No new or enlarging hemorrhage. Stable pattern of mass effect Thank you for letting us participate in the care of this patient. If you are a health care provider and have any questions regarding this report, please contact the number below. For patients who have questions please contact the health ocular care technician that requested your imaging first. Electronically signed by: Armando Pan MD, [facility] ([phone]), at 09/22/2024 4:[address] Angiogram Chest for Pulmonary Embolus w Contrast (Exam End: 09/26/2024 1:37 PM) Result Value WORKSTATION ID [id number] Impression 1. No pulmonary embolism. 2. Pulmonary edema. 3. Bibasilar atelectasis. Superimposed patchy airspace opacity in the left lower lobe may represent atelectasis versus pneumonia. 4. Mild emphysema. 5. Mild cardiomegaly. Left atrial appendage occlusion device in situ. Mild multifocal coronary atherosclerosis. Correlation with echocardiography may be of benefit. 6. Unexpected Findin mm indeterminant left adrenal nodule. Per ACR white paper guidelines, follow-up CT of the Abdomen (Adrenal protocol - without and with intravenous contrast) is recommended in one year. 7. Mild sigmoid diverticulosis coli without secondary signs of acute diverticulitis. 8. Interval development of anasarca, which may be related to hypervolemia, hypoproteinemia, or combination thereof. 9. Endotracheal catheter in situ with tip 4 mm above the jonathan. Recommend retraction. 10. Enteric catheter in situ with tip terminating in the gastric pylorus. 11. Hill catheter in situ. Persistent distention of the urinary bladder. Correlation with catheter functionality is recommended. 12. Rectal catheter in situ. Thank you for letting us participate in the care of this patient. If you are a health care provider and have any questions regarding this report, please contact the number below. For patients who have questions please contact the health ocular care technician that requested your imaging first. Electronically signed by: Marvin Decker DO, [facility] ([phone]), at 09/26/2024 1:[address] Head wo Contrast (Generic) (Exam End: 09/26/2024 1:37 PM) Result Value WORKSTATION ID [id number] Impression 1. Stable right-sided parenchymal and subdural hemorrhages, associated mass effect and midline shift. 2. Stable left intraventricular hemorrhage. 3. No new or enlarging hemorrhages or extra-axial collections. Thank you for letting us participate in the care of this patient. If you are a health care provider and have any questions regarding this report, please contact the number below. For patients who have questions please contact the health ocular care technician that requested your imaging first. Electronically signed by: Smiley Cordova MD, [facility] ([phone]), at 09/26/2024 2:[address] Abdomen & Pelvis w Contrast (Exam End: 09/26/2024 1:37 PM) Result Value WORKSTATION ID [id number] Impression 1. No pulmonary embolism. 2. Pulmonary edema. 3. Bibasilar atelectasis. Superimposed patchy airspace opacity in the left lower lobe may represent atelectasis versus pneumonia. 4. Mild emphysema. 5. Mild cardiomegaly. Left atrial appendage occlusion device in situ. Mild multifocal coronary atherosclerosis. Correlation with echocardiography may be of benefit. 6. Unexpected Findin mm indeterminant left adrenal nodule. Per ACR white paper guidelines, follow-up CT of the Abdomen (Adrenal protocol - without and with intravenous contrast) is recommended in one year. 7. Mild sigmoid diverticulosis coli without secondary signs of acute diverticulitis. 8. Interval development of anasarca, which may be related to hypervolemia, hypoproteinemia, or combination thereof. 9. Endotracheal catheter in situ with tip 4 mm above the jonathan. Recommend retraction. 10. Enteric catheter in situ with tip terminating in the gastric pylorus. 11. Hill catheter in situ. Persistent distention of the urinary bladder. Correlation with catheter functionality is recommended. 12. Rectal catheter in situ. Thank you for letting us participate in the care of this patient. If you are a health care provider and have any questions regarding this report, please contact the number below. For patients who have questions please contact the health ocular care technician that requested your imaging first. Chest One View (Exam End: 09/28/2024 4:06 AM) Result Value WORKSTATION ID [id number] Impression 1. Limited examination. 2. Interval removal of the endotracheal catheter. 3. Stable position of other medical hardware. 4. Decreased but persistent patchy left retrocardiac airspace opacity, may be resolving atelectasis or pneumonia. Thank you for letting us participate in the care of this patient. If you are a health care provider and have any questions regarding this report, please contact the number below. For patients who have questions please contact the health ocular care technician that requested your imaging first. Electronically signed by: Marvin Decker DO, [facility] ([phone]), at 09/28/2024 4:12 AM XR Chest One View (Exam End: 09/28/2024 7:58 PM) Result Value WORKSTATION ID [id number] Impression 1. Slightly increased opacity in the left lower lung which may be due to atelectasis, aspiration or pneumonia. 2. Small bilateral pleural effusions. Thank you for letting us participate in the care of this patient. If you are a health care provider and have any questions regarding this report, please contact the number below. For patients who have questions please contact the health ocular care technician that requested your imaging first. Electronically signed by: Sammy Story MD, [facility] ([phone]), at 09/28/2024 8:09 PM XR Chest One View (Exam End: 09/29/2024 1:13 PM) Result Value WORKSTATION ID [id number] Impression 1. Limited examination. 2. Stable position of medical hardware. 3. The lung volumes are decreased, which accentuates the pulmonary vascular markings and cardiac silhouette. 4. Accounting for this, a stable mild component of congestive heart failure / fluid overload is suspected. 5. Stable moderate cardiomegaly. 6. Possible inferior subluxation of the left humerus. Correlation with patient symptomatology is recommended. If clinically indicated, further evaluation with dedicated left shoulder radiographs can be obtained. Thank you for letting us participate in the care of this patient. If you are a health care provider and have any questions regarding this report, please contact the number below. For patients who have questions please contact the health ocular care technician that requested your imaging first. Electronically signed by: Marvin Decker DO, [facility] ([phone]), at 09/30/2024 12:[address] Head wo Contrast (Generic) (Exam End: 10/04/2024 1:40 AM) Result Value WORKSTATION ID [id number] Impression 1. Overall interval improvement of the mass effect on the right hemisphere with evolution of blood products within the parenchyma post craniotomy. 2. Mild interval increase in extra-axial fluid inferior margin of the craniotomy. 3. Mild interval increase in size of third and lateral ventricles as well as peripheral CSF spaces 4. No new hemorrhage or infarction Thank you for letting us participate in the care of this patient. If you are a health care provider and have any questions regarding this report, please contact the number below. For patients who have questions please contact the health ocular care technician that requested your imaging first. Electronically signed by: Armando Pan MD, [facility] ([phone]), at 10/04/2024 2:12 AM MRI Brain wwo Contrast (Generic) (Exam End: 10/04/2024 10:30 PM) Result Value WORKSTATION ID [id number] Impression 1. Fluid collections in the right parietal lobe now showing some restricted diffusion, question abscess formation or hemorrhage. Fluid in the collections projecting deep to the craniotomy and at the margin of the craniotomy with restricted diffusion suggesting abscess formation or hemorrhage. 2. Fluid collections in the extra-axial space and adjacent to the craniotomy. These do not appear to demonstrate restricted diffusion and may represent a meningocele formation. 3. Interval decrease in mass effect compared to MRI of 09/19/2024. Thank you for letting us participate in the care of this patient. If you are a health care provider and have any questions regarding this report, please contact the number below. For patients who have questions please contact the health ocular care technician that requested your imaging first. Electronically signed by: Armando Pan MD, [facility] ([phone]), at 10/05/2024 12:31 AM XR Chest One View (Exam End: 10/06/2024 10:59 AM) Result Value WORKSTATION ID [id number] Impression Improved but persistent retrocardiac patchy opacity which is favored to represent atelectasis although underlying acute infectious/inflammatory process cannot be excluded. I have personally reviewed the image(s) and the resident's interpretation and agree with the findings, MICHELLE ARSHAD MD at 10/06/2024 3:00 PM Thank you for letting us participate in the care of this patient. If you are a health care provider and have any questions regarding this report, please contact the number below. For patients who have questions please contact the health ocular care technician that requested your imaging first. Electronically signed by: [facility] ([phone]), at 10/06/2024 3:00 PM XR Fluoro Esophagram (Modified/Video Swallow Pharynx) (Exam End: 10/08/2024 4:10 PM) Result Value WORKSTATION ID [id number] Impression Abnormal modified barium swallow with silent aspiration. Please see Speech Language Pathology clinical notes for further detail. I have personally reviewed the image(s) and the resident's interpretation and agree with the findings, Victor Manuel Smith MD at 10/08/2024 4:49 PM Thank you for letting us participate in the care of this patient. If you are a health care provider and have any questions regarding this report, please contact the number below. For patients who have questions please contact the health ocular care technician that requested your imaging first. Electronically signed by: Victor Manuel Smith MD, [facility] ([phone]), at 10/08/2024 4:[address] Head wo Contrast (Generic) (Exam End: 10/07/2024 3:25 PM) Result Value WORKSTATION ID [id number] Impression 1. Interval decreased prominence of RIGHT parenchymal hemorrhage with unchanged RIGHT holohemispheric mass effect and RIGHT to LEFT midline shift. 2. No new hemorrhages. I have personally reviewed the image(s) and the resident's interpretation and agree with the findings, Domingo Puentes at 10/07/2024 4:11 PM Thank you for letting us participate in the care of this patient. If you are a health care provider and have any questions regarding this report, please contact the number below. For patients who have questions please contact the health ocular care technician that requested your imaging first. Electronically signed by: Domingo Puentes [facility] ([phone]), at 10/07/2024 4:11 PM ASSESSMENT & PLAN Lucero Bruno 74 y.o. female with PMHx RIGHT occipital hemorrhage, chronic a-fib presented for watchman procedure. Patient developed headache after procedure and was taken to CT where she was found to have RIGHT IPH with mass effect and midline shift s/p craniotomy. 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 Course complicated by dysphagia requiring PEG tube placement. 10/09/24-Luceor Bruno is neurologically stable, deficits include left hemiplegia and left hemianopia. Will obtain UA today due to sensation of burning with urination, recent catheterization, hospital day 23. Otherwise, MR for DC to SNF pending placement. 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 - Continue Amlodipine 5mg daily - Continue diltiazem 90mg q6 #Pulm - - goal SpO2> 94% - O2 as needed - nebs PRN #GI - >dysphagia - follow up [facility] [employer] [facility] recs - Sips and Chips (Hold Meds) - Tube feeds - maintain bowel reg Last Bowel Movement: 10/09/24 - GI ppx-protonix 40mg - PEG tube placed 10/04 #FEN/ - - maintain euvolemia, I=O - Goal Na 135-145, K > 4, Mg > 1 # Heme - - goal Hgb > 7, INR < 1.5, Platelets > 50k - DVT ppx: Lovenox, SCDs # Endo - - goal glucose 120-180 Recent Labs 09/17/24 0039 05/06/24 0548 HA1C 6.1* 6.0* - sliding scale insulin (Resistant) - Tube feed assoc insulin # ID - > Leukocytosis > Pneumonia > Respiratory Distress, resolved - for temp > 38C --> UA, CXR, blood cx, sputum cx - tylenol PRN - repeat CXR 10/06 - Completed Zosyn (09/24 - 09/29) - CBC - ID consult - C. Diff negative # Other - Activity: as tolerated - Dispo: Shelter facility - Last BM: Last Bowel Movement: 10/09/24 - code status: Attempt Cardiopulmonary Resuscitation - Inpatient Patient Lines/Drains/Airways Status Active Tubes/Lines/Drains Name Placement date Placement time Site Days PIV 10/06/24 1416 22 gauge;1.75 in length median vein (underside of arm), right 10/06/24 1416 -- 3 External Catheter 10/06/24 1712 10/06/24 1712 -- 3 Enterostomy Tube 10/04/24 1236 gastrostomy tube with balloon midline 10/04/24 1236 -- 5 Please page Vascular Neurology with any questions, #[phone] ADRIANA JONAS Department [place] [address] Associated attestation - Karli Morales MD - 10/09/2024 7:30 PM EST This patient was seen in conjunction with Ravi Dickson. I performed the majority of this shared visit based on time. 60 minutes were spent on date of visit, including non-face to face time. (28 JESSI min, 32 min my time) Karli Morales MD 74 yo woman here with R occipital IPH. On exam she is awake, alert, following commands R gaze prefernce. L sided weakness and increased tone in arm. R arm/leg antigravity. 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 Ongoing rehab and SNF placement * Areli Hathaway, ZUHAIR - 10/08/2024 3:18 PM EST Speech-Language Pathology Modified Barium Swallow Evaluation Patient Profile: Lucero Bruno is a 74 y.o. female with PMHx of A-fib, CHRISTOPHER, HLD, and prior IPH (04/2024) who presented to [facility] on 09/16/2024 for placement of Watchman with cardiology. She developed headaches and nausea post-operatively and was found to have a large R hsrvxgjf-uwejexy-kojlnzxrl IPH, now s/p craniotomy. Patient was intubated from 09/16-09/21 with extubation complicated by stridor requiring re-intubation from 09/21-09/26 (11 days total). [facility] has been following since 09/27 for communication and dysphagia management. Prior Level of Swallow Function: Patient denies history of dysphagia prior to this admission. Most Recent Clinical Impression: Oral and suspected pharyngeal dysphagia 2/2 IPH (improving), dysphonia 2/2 IPH vs. 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 Interval decreased prominence of RIGHT parenchymal hemorrhage with unchanged RIGHT holohemispheric mass effect and RIGHT to LEFT midline shift. 2. No new hemorrhages. XR Chest (10/06/2024) IMPRESSION Improved but persistent retrocardiac patchy opacity which is favored to represent atelectasis although underlying acute infectious/inflammatory process cannot be excluded. Subjective: Patient was pleasant and engaged with care. She voiced strong motivation to continue working with therapy. Objective: Patient seen for evaluation today. Radiologist was present for entire study. Pain: No acute signs of discomfort Current Diet: NPO diet (Give Meds) Feeding / Oral Care Status: Patient requires cues and/or assistance due to significant motor limitations; able to accept and bring a swab or spoon to her mouth with infrequent verbal cues (overshootsto L) Cognitive-Linguistic Status: A&Ox4 Good focused attention Responding to questions appropriately using a combination of head nods, hand gestures, and/or shortutterances (1-4 words) Follows multi-step commands within motor constraints Writing is reasonably intelligible at the sentence level; able to independently request clipboard Left-sided inattention; able to turn her head, localize, and identify objects and colors on her left side when prompted. Today, she implemented compensatory strategies for visual scanning (e.g., using her hand to manually turn her head to the left) independently. Positioning: Sitting in Haustead chair at approximately 85 degrees hip flexion. Oral Motor Examination: WFL Impaired Comments STRUCTURES Facial Symmetry X Left facial droop Lips X Reduced retraction on L, improving on R Tongue X Deviates L on protrusion; ROM, agility, and coordination improving though still impaired Jaw X Palate/Velum X Dentition X Missing right upper teeth and multiple others; visible decay OTHER Phonation X Gravelly, hypophonic, strained Intelligibility X Approximately 75% at the word level; most impacted by strain and articulatory imprecision Volitional Cough X Reduced but gradually improving Sensation X Suspect L sensory impairment vs. inattention; improving Secretion Management X Bolus Presentations: Thin liquid [place] thick liquid Puree Soft solid Oral Preparatory Phase Lip closure: No labial escape Tongue control during bolus hold: Not assessed Bolus preparation/mastication: Slow prolonged chewing / mashing with complete re-collection Bolus transport/Lingual motion: Repetitive / disorganized tongue motion with puree and soft solids,timelier and more coordinated with liquids Oral residue: Residue collection on oral structures with thicker consistencies which clears with spontaneous repeat swallows Initiation of pharyngeal swallow: Bolus head in pyriforms with liquids, timelier with thicker consistencies (at the valleculae with soft solids and at the ramus of the mandible with puree) Pharyngeal Phase Soft palate elevation: No bolus between soft palate / pharyngeal wall Laryngeal elevation: Complete superior movement of thyroid cartilage with complete approximation ofarytenoids to epiglottic petiole Anterior hyoid excursion: Partial anterior movement Epiglottic movement: Depresses but does not fully invert with the exception of large volume trials Laryngeal vestibule closure: Complete; no air / contrast in laryngeal vestibule during the primary swallow; large sips of thin liquid pool in the pyriforms and intermittently spill over into the laryngeal vestibule during secondary swallows Pharyngeal stripping wave: Present - diminished with puree and soft solids PE segment opening: Complete distension and complete duration; no obstruction of flow Tongue base retraction: Trace column of contrast between tongue base and posterior pharyngeal wall Pharyngeal residue: Collection of residue within or on pharyngeal structures with puree and soft solids requiring multiple cued swallows to clear; patient not sensate Esophageal Phase Esophageal clearance upright position: Unable to assess due to positional limitations Modifications Attempted: Multiple swallows: Spontaneous, effective for clearing oropharyngeal residue Effortful swallow: Cued, effective for clearing oropharyngeal residue Liquid assist: Cued, effective for clearing oropharyngeal residue Penetration-Aspiration Scale (PAS; Rosentiara, Michelle et al., 1996) 1 = no material enters the airway (nectar thick liquid, puree, soft solid) 2 = material enters the airway, does not touch the vocal cords, and is completely ejected 3 = material enters the airway, does not touch the vocal cords, but is not ejected 4 = material enters the airway, contacts the vocal cords, but is ejected 5 = material enters the airway, contacts the vocal cords, but is not ejected 6 = material enters the airway, passes below the vocal cords, and is ejected 7 = material passes below the vocal cords, is not ejected, but there is effort made to expel material 8 = material passes below the vocal cords, and there is no attempt to eject it (thin liquid via straw) Dysphagia Outcome Severity Scale (CHINA): Level 4: Mild-moderate dysphagia Retention in pharynx cleared with cue Retention in the oral cavity that is cleared with cue Aspiration with one consistency, with weak or no reflexive cough Education: Discussed preliminary results and recommendations with patient, who verbalized understanding. Will review in full during our next treatment session. Assessment: Lucero Bruno completed a modified barium swallow to assess oropharyngeal swallow function following R hmufzpk-pulkuxs-voegkrjvq IPH (09/16). Oral motor examination revealed interval improvements in orofacial agility and coordination, though her movements remain sluggish and effortful. Her speech intelligibility has improved alongside improvements in orofacial control. Aubree required physical assistance and frequent repositioning to maintain upright posture throughout this study due to left-sided weakness and inattention. Imaging revealed iyrr-jc-vckxbswk oropharyngeal dysphagia. Aubree's oral phase was efficient and timely with liquids but prolonged and disorganized with reduced lingual propulsion of purees and soft solids requiring intermittent cues to clear the oral cavity. Aubree's pharyngeal swallow was characterized by varying timeliness, decreased epiglottic inversion likely related to decreased anterior hyolaryngeal excursion, and decreased pharyngeal constriction leading to ssbk-pf-lkkyprdr residue with purees and soft solids. Aubree benefited from a cued effortful swallow to clear residual. Airway protection was good with small volumes of thin and nectar thick liquids, purees, and soft solids but reduced with larger sips of thin liquids leading to intermittent laryngeal penetration and one aspiration event when drinking from a straw. However, she later took sequential sips of thin liquids without difficulty, suggesting airway protection may vary based on factors such as positioning, whether patientis self-feeding, etc. Overall, today's study showed significant improvements in Aubree's swallow timeliness and efficiency compared to initial bedside observations. Aubree will benefit from continued swallow stimulation and practice. I anticipate she will be able to start a limited diet in the coming days. For now, please start sips and chips with water via teaspoon only (no straws). We will continue to follow and trial more advanced consistencies. Diagnosis: Ekzl-um-vpdmsvwz oropharyngeal dysphagia 2/2 IPH, dysphonia 2/2 IPH vs. 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 ONGOING Pt will be independent with aspiration precautions, diet modifications, and safe swallowing strategies. ONGOING Pt will participate in an instrumental swallow evaluation. MET Plan: Therapy Frequency ([facility] Eval): 3-5 times/wk Patient is in agreement with the plan of care. Total Minutes (Speech Language Pathology): 20 (clinical) + 60 (MBS) = 80 Thanks for the opportunity to contribute to this patient's care. Please feel free to page me with any questions or concerns. Areli Hathaway, MS, [facility] Speech-Language Pathologist Inpatient Rehabilitation Pager # [phone] Anupama Rendon RN - 10/08/2024 12:36 PM ESTSummary: [facility] SNF choice/expanded Based on discussions with the multi-disciplinary healthcare team, the patient would benefit from SNF level of care at discharge. I have met with the patient and residential sales representative son Don Pollard to: discuss discharge planning needs. provide the [facility], Office of Care Management letter from the Federal Aid Coordinator pertaining to rehab referrals. provide a letter describing our affiliations within the [facility] and educate about their right to choose where referrals are sent. provide the [facility] Star Quality Rating handout. review the different levels of rehab including SNF, swing, and acute. provide a list of facilities within their preferred geographic area. request that they provide at least three choices for referral. They have requested referrals to: [facility] (LTC Only) [address] [place] [address] [facility] [address] [place] [address] [address] [facility] [address] [place] [id number] Note routed to a Global Mobility Specialist who will communicate referrals to facilities and provide any required information. Anupama Pastrana, MSN, RN ACM-RN [facility] manager ed * Anitra RuizDO - 10/08/2024 7:26 AM EST Images from the original note were not included. VASCULAR NEUROLOGY DAILY PROGRESS NOTE Admit Date 09/16/2024 Responsible Attending: Karli Morales MD Primary Provider: Leila Manjarrez [phone] Hospital Day: Hospital Day: 23 Patient ID 74 y.o. female with PMHx RIGHT occipital hemorrhage, chronic a-fib presented for watchman procedure. Patient developed headache after procedure and was taken to CT where she was found to have RIGHT IPH with mass effect and midline shift s/p craniotomy. 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 Course complicated by dysphagia requiring PEG tube placement. 24hr Events: - Adjusted tube feed regimen to boluses yesterday - NAEON, VSS - This morning denies any acute concerns or complaints, denies head pain EXAM Last value Range last 24 hrs Temperature Temp: 36.4 ??C (97.6 ??F) Temp: [36.4 ??C (97.6 ??F)-37 ??C (98.6 ??F)] Heart Rate Heart Rate: 79 Heart Rate: [70-85] Blood Pressure BP: 112/55 BP: (98-128)/(43-67) Respiratory Rate Resp: 15 Resp: [15-27] SpO2 SpO2: 96 % SpO2: [95 %-98 %] GENERAL - Alert, awake, no verbal output CN - PERRL, right gaze preference, unable to cross midline to left. No blink to threat on left. MOTOR - LUE with clasp knife rigidity LUE/LLE 0/5 RUE/RLE able to sustain gravity REFLEX - Babinski elicited strong withdrawal b/l SENSATION - intact sensation on right COORDINATION - FTN intact on RUE GAIT - not assessed DATA I/O last 3 completed shifts: In: 1017.3 [I.V.:20; NG/GT:755.3; IV Piggyback:2] Out: 1050 [Urine:1050] Labs Recent Labs 10/08/24 0113 10/07/24 0112 10/06/243 10/05/24710/04/24 0029 WBC 11.43* 15.48* 16.59* 13.56* 14.67* HGB 10.0* 10.7* 10.8* 10.8* 10.4* HCT 31.2* 32.4* 32.9* 33.5* 32.8* PLATELET 190 211 237 241 303 NEUTROABS 9.01* 13.16* 14.40* 11.69* 12.52* Recent Labs 10/08/24 01110/07/2411110/06/243210/05/24710/04/2428 NA 138 138 138 139 142 K 4.4 4.0 4.3 4.2 4.1 CL 104 102 101 103 106 CO2 27 27 26 29 26 BUN 26* 17 21* 24* 24* CREATININE 0.39* 0.36* 0.45* 0.36* 0.36* GLUCOSE 186 190 211* 136 166 Recent Labs 10/08/24 01110/07/2411110/06/2432 CALCIUM 8.9 9.0 9.0 MAGNESIUM 0.79 0.72 0.73 PHOS 3.3 2.6 2.5 Lipid Panel Lab Results Component Value Date CHLPL 203 09/17/2024 CHLPL 135 05/06/2024 HDL 45 09/17/2024 HDL 46 05/06/2024 TRIG 95 09/20/2024 TRIG 101 05/06/2024 LDLCHOL 69 05/06/2024 LDLDIRECT 133 09/17/2024 Lab Results Component Value Date HA1C 6.1 (H) 09/17/2024 Micro: Microbiology Results (last 7 days) Procedure Component Value - Date/Time Blood culture [[id number]] Collected: 09/26/24 1442 Lab Status: Final result Specimen: Blood, Venous Updated: 10/01/24 1602 Blood Culture No growth at 120 hours Blood culture [[id number]] Collected: 09/26/24 1453 Lab Status: Final result Specimen: Blood, Venous Updated: 10/01/24 1602 Blood Culture No growth at 120 hours Imaging/EKG Results for orders placed or performed during the hospital encounter of 09/16/24 CT Head wo Contrast (Generic) (Exam End: 09/16/2024 5:26 PM) Result Value WORKSTATION ID [id number] Impression Interval expansion of now large right-sided temporal occipital intraparenchymal hemorrhage with significant mass effect resulting in 1 cm leftward midline shift. Per chart review, this patient was seen by neurosurgery and taken emergently to the OR. I have personally reviewed the image(s) and the resident's interpretation and agree with the findings, Lana Reinoso at 09/16/2024 6:01 PM Thank you for letting us participate in the care of this patient. If you are a health care provider and have any questions regarding this report, please contact the number below. For patients who have questions please contact the health ocular care technician that requested your imaging first. Electronically signed by: Lana Reinoso [facility] ([phone]), at 09/16/2024 6:[address] Head wo Contrast (Generic) (Exam End: 09/16/2024 11:21 PM) Result Value WORKSTATION ID [id number] Impression CT head: 1. Interval craniotomy with residual or recurrent hemorrhage right temporal and parietal lobe. 2. New hemorrhage right [...] in the care of this patient. If you are a health care provider and have any questions regarding this report, please contact the number below. For patients who have questions please contact the health ocular care technician that requested your imaging first. Electronically signed by: Armando Pan MD, [facility] ([phone]), at 09/17/2024 1:[address] Venogram Brain (Exam End: 09/16/2024 11:21 PM) Result Value WORKSTATION ID [id number] Impression CT head: 1. Interval craniotomy with residual or recurrent hemorrhage right temporal and parietal lobe. 2. New hemorrhage right [...] in the care of this patient. If you are a health care provider and have any questions regarding this report, please contact the number below. For patients who have questions please contact the health ocular care technician that requested your imaging first. Electronically signed by: Armando Pan MD, [facility] ([phone]), at 09/17/2024 1:42 AM XR Chest One View (Exam End: 09/16/2024 11:00 PM) Result Value WORKSTATION ID [id number] Impression Satisfactorily positioned enteric and endotracheal tubes. Left lower lobe atelectasis versus pneumonia. Thank you for letting us participate in the care of this patient. If you are a health care provider and have any questions regarding this report, please contact the number below. For patients who have questions please contact the health ocular care technician that requested your imaging first. Electronically signed by: Pamela Beard MD, [facility] ([phone]), at 09/17/2024 12:09 AM XR Abdomen 1 view (Generic) (Exam End: 09/16/2024 11:00 PM) Result Value WORKSTATION ID [id number] Impression Satisfactorily positioned enteric and endotracheal tubes. Left lower lobe atelectasis versus pneumonia. Thank you for letting us participate in the care of this patient. If you are a health care provider and have any questions regarding this report, please contact the number below. For patients who have questions please contact the health ocular care technician that requested your imaging first. Electronically signed by: Pamela Beard MD, [facility] ([phone]), at 09/17/2024 12:[address] Head wo Contrast (Generic) (Exam End: 09/17/2024 4:51 AM) Result Value WORKSTATION ID [id number] Impression Increased size and density of dominant right parietal hematoma, and of hemorrhage extending medially into the basal ganglia. Foci of thalamocapsular hemorrhage on the right are stable. No evidence of progressive intraventricular hemorrhage or ventricular dilation. No definitive increase in leftward midline shift or herniation. Thank you for letting us participate in the care of this patient. If you are a health care provider and have any questions regarding this report, please contact the number below. For patients who have questions please contact the health ocular care technician that requested your imaging first. Electronically signed by: Elvin Bolden DO, [facility] ([phone]), at 09/17/2024 8:38 AM XR Chest One View (Exam End: 09/17/2024 2:13 PM) Result Value WORKSTATION ID [id number] Impression 1. No focal opacity in lung 2. Pulmonary edema, progressed since last examination. 3. Tip of ET tube is 23 mm superior cuff to jonathan. Consider adjustment. 4. Sidehole and tip of NG tube is below the diaphragm. Thank you for letting us participate in the care of this patient. If you are a health care provider and have any questions regarding this report, please contact the number below. For patients who have questions please contact the health ocular care technician that requested your imaging first. Electronically signed by: Zoey Zabala MD, [facility] ([phone]), at 09/17/2024 2:43 PM XR Chest One View (Exam End: 09/18/2024 8:43 AM) Result Value WORKSTATION ID [id number] Impression Tubes and lines as described. Blunting of the left costophrenic angle suggests tiny layering left effusion with associated left basilar consolidation/atelectasis Thank you for letting us participate in the care of this patient. If you are a health care provider and have any questions regarding this report, please contact the number below. For patients who have questions please contact the health ocular care technician that requested your imaging first. Abdomen 1 view (Generic) (Exam End: 09/18/2024 12:31 PM) Result Value WORKSTATION ID [id number] Impression Dobbhoff tube tip along the greater curve of the stomach. Thank you for letting us participate in the care of this patient. If you are a health care provider and have any questions regarding this report, please contact the number below. For patients who have questions please contact the health ocular care technician that requested your imaging first. Brain wwo Contrast (Generic) (Exam End: 09/19/2024 5:43 PM) Result Value WORKSTATION ID [id number] Impression Unchanged size of large right cerebral hemisphere ICH status post partial evacuation. Numerous small foci of decreased acute infarction both along and separate from the site of hemorrhage. These foci are present in both cerebral hemispheres and have a pattern most consistent with embolic infarction. No evidence of [employer] malignancy Thank you for letting us participate in the care of this patient. If you are a health care provider and have any questions regarding this report, please contact the number below. For patients who have questions please contact the health ocular care technician that requested your imaging first. Electronically signed by: Rios Swartz MD, [facility] ([phone]), at 09/20/2024 8:[address] Head wo Contrast (Generic) (Exam End: 09/21/2024 3:50 AM) Result Value WORKSTATION ID [id number] Impression Stable hemorrhage right temporal, parietal, right posterior limb internal capsule and right thalamus. Mild progression of vasogenic edema adjacent to hemorrhage. Similar pattern and extent of local and generalized mass effect with stable subfalcine herniation and uncal herniation. Thank you for letting us participate in the care of this patient. If you are a health care provider and have any questions regarding this report, please contact the number below. For patients who have questions please contact the health ocular care technician that requested your imaging first. Electronically signed by: Armando Pan MD, [facility] ([phone]), at 09/21/2024 4:55 AM XR Abdomen 1 view (Generic) (Exam End: 09/21/2024 2:01 PM) Result Value WORKSTATION ID [id number] Impression Dobbhoff tube and enteric tube sidehole and tip is projecting over the expected location of the stomach. I have personally reviewed the image(s) and the resident's interpretation and agree with the findings, Shraddha Cox MD at 09/21/2024 3:40 PM Thank you for letting us participate in the care of this patient. If you are a health care provider and have any questions regarding this report, please contact the number below. For patients who have questions please contact the health ocular care technician that requested your imaging first. Electronically signed by: Shraddha Cox MD, [facility] ([phone]), at 09/21/2024 3:40 PM XR Chest One View (Exam End: 09/21/2024 2:01 PM) Result Value WORKSTATION ID [id number] Impression ET tube with tip projecting approximately 1.4 cm above the jonathan. Recommend retracting approximately 2 cm and follow-up imaging. New left basilar atelectasis and/or small pleural effusion. Aspiration or pneumonia could also this appearance. I Sacha Shipley MD discussed the results (Impression #1) with Bonnie Vazquez on 09/21/2024 4:42 PM and verified that the results were understood. I have personally reviewed the image(s) and the resident's interpretation and agree with the findings, Octavio Scott MD at 09/21/2024 5:09 PM Thank you for letting us participate in the care of this patient. If you are a health care provider and have any questions regarding this report, please contact the number below. For patients who have questions please contact the health ocular care technician that requested your imaging first. Electronically signed by: Octavio Scott MD, [facility] ([phone]), at 09/21/2024 5:[address] Head wo Contrast (Generic) (Exam End: 09/22/2024 4:02 AM) Result Value WORKSTATION ID [id number] Impression Stable head CT status post removal of subcutaneous drain. No new or enlarging hemorrhage. Stable pattern of mass effect Thank you for letting us participate in the care of this patient. If you are a health care provider and have any questions regarding this report, please contact the number below. For patients who have questions please contact the health ocular care technician that requested your imaging first. Electronically signed by: Armando Pan MD, [facility] ([phone]), at 09/22/2024 4:[address] Angiogram Chest for Pulmonary Embolus w Contrast (Exam End: 09/26/2024 1:37 PM) Result Value WORKSTATION ID [id number] Impression 1. No pulmonary embolism. 2. Pulmonary edema. 3. Bibasilar atelectasis. Superimposed patchy airspace opacity in the left lower lobe may represent atelectasis versus pneumonia. 4. Mild emphysema. 5. Mild cardiomegaly. Left atrial appendage occlusion device in situ. Mild multifocal coronary atherosclerosis. Correlation with echocardiography may be of benefit. 6. Unexpected Findin mm indeterminant left adrenal nodule. Per ACR white paper guidelines, follow-up CT of the Abdomen (Adrenal protocol - without and with intravenous contrast) is recommended in one year. 7. Mild sigmoid diverticulosis coli without secondary signs of acute diverticulitis. 8. Interval development of anasarca, which may be related to hypervolemia, hypoproteinemia, or combination thereof. 9. Endotracheal catheter in situ with tip 4 mm above the jonathan. Recommend retraction. 10. Enteric catheter in situ with tip terminating in the gastric pylorus. 11. Hill catheter in situ. Persistent distention of the urinary bladder. Correlation with catheter functionality is recommended. 12. Rectal catheter in situ. Thank you for letting us participate in the care of this patient. If you are a health care provider and have any questions regarding this report, please contact the number below. For patients who have questions please contact the health ocular care technician that requested your imaging first. Electronically signed by: Marvin Decker DO, [facility] ([phone]), at 09/26/2024 1:[address] Head wo Contrast (Generic) (Exam End: 09/26/2024 1:37 PM) Result Value WORKSTATION ID [id number] Impression 1. Stable right-sided parenchymal and subdural hemorrhages, associated mass effect and midline shift. 2. Stable left intraventricular hemorrhage. 3. No new or enlarging hemorrhages or extra-axial collections. Thank you for letting us participate in the care of this patient. If you are a health care provider and have any questions regarding this report, please contact the number below. For patients who have questions please contact the health ocular care technician that requested your imaging first. Electronically signed by: Smiley Cordova MD, [facility] ([phone]), at 09/26/2024 2:[address] Abdomen & Pelvis w Contrast (Exam End: 09/26/2024 1:37 PM) Result Value WORKSTATION ID [id number] Impression 1. No pulmonary embolism. 2. Pulmonary edema. 3. Bibasilar atelectasis. Superimposed patchy airspace opacity in the left lower lobe may represent atelectasis versus pneumonia. 4. Mild emphysema. 5. Mild cardiomegaly. Left atrial appendage occlusion device in situ. Mild multifocal coronary atherosclerosis. Correlation with echocardiography may be of benefit. 6. Unexpected Findin mm indeterminant left adrenal nodule. Per ACR white paper guidelines, follow-up CT of the Abdomen (Adrenal protocol - without and with intravenous contrast) is recommended in one year. 7. Mild sigmoid diverticulosis coli without secondary signs of acute diverticulitis. 8. Interval development of anasarca, which may be related to hypervolemia, hypoproteinemia, or combination thereof. 9. Endotracheal catheter in situ with tip 4 mm above the jonathan. Recommend retraction. 10. Enteric catheter in situ with tip terminating in the gastric pylorus. 11. Hill catheter in situ. Persistent distention of the urinary bladder. Correlation with catheter functionality is recommended. 12. Rectal catheter in situ. Thank you for letting us participate in the care of this patient. If you are a health care provider and have any questions regarding this report, please contact the number below. For patients who have questions please contact the health ocular care technician that requested your imaging first. Electronically signed by: Marvin Decker DO, [facility] ([phone]), at 09/26/2024 1:54 PM XR Chest One View (Exam End: 09/28/2024 4:06 AM) Result Value WORKSTATION ID [id number] Impression 1. Limited examination. 2. Interval removal of the endotracheal catheter. 3. Stable position of other medical hardware. 4. Decreased but persistent patchy left retrocardiac airspace opacity, may be resolving atelectasis or pneumonia. Thank you for letting us participate in the care of this patient. If you are a health care provider and have any questions regarding this report, please contact the number below. For patients who have questions please contact the health ocular care technician that requested your imaging first. Electronically signed by: Marvin Decker DO [facility] ([phone]), at 09/28/2024 4:12 AM XR Chest One View (Exam End: 09/28/2024 7:58 PM) Result Value WORKSTATION ID [id number] Impression 1. Slightly increased opacity in the left lower lung which may be due to atelectasis, aspiration or pneumonia. 2. Small bilateral pleural effusions. Thank you for letting us participate in the care of this patient. If you are a health care provider and have any questions regarding this report, please contact the number below. For patients who have questions please contact the health ocular care technician that requested your imaging first. Electronically signed by: Sammy Story MD, [facility] ([phone]), at 09/28/2024 8:09 PM XR Chest One View (Exam End: 09/29/2024 1:13 PM) Result Value WORKSTATION ID [id number] Impression 1. Limited examination. 2. Stable position of medical hardware. 3. The lung volumes are decreased, which accentuates the pulmonary vascular markings and cardiac silhouette. 4. Accounting for this, a stable mild component of congestive heart failure / fluid overload is suspected. 5. Stable moderate cardiomegaly. 6. Possible inferior subluxation of the left humerus. Correlation with patient symptomatology is recommended. If clinically indicated, further evaluation with dedicated left shoulder radiographs can be obtained. Thank you for letting us participate in the care of this patient. If you are a health care provider and have any questions regarding this report, please contact the number below. For patients who have questions please contact the health ocular care technician that requested your imaging first. Electronically signed by: Marvin Decker DO [facility] ([phone]), at 09/30/2024 12:[address] Head wo Contrast (Generic) (Exam End: 10/04/2024 1:40 AM) Result Value WORKSTATION ID [id number] Impression 1. Overall interval improvement of the mass effect on the right hemisphere with evolution of blood products within the parenchyma post craniotomy. 2. Mild interval increase in extra-axial fluid inferior margin of the craniotomy. 3. Mild interval increase in size of third and lateral ventricles as well as peripheral CSF spaces 4. No new hemorrhage or infarction Thank you for letting us participate in the care of this patient. If you are a health care provider and have any questions regarding this report, please contact the number below. For patients who have questions please contact the health ocular care technician that requested your imaging first. Electronically signed by: Armando Pan MD, [facility] ([phone]), at 10/04/2024 2:12 AM MRI Brain wwo Contrast (Generic) (Exam End: 10/04/2024 10:30 PM) Result Value WORKSTATION ID [id number] Impression 1. Fluid collections in the right parietal lobe now showing some restricted diffusion, question abscess formation or hemorrhage. Fluid in the collections projecting deep to the craniotomy and at the margin of the craniotomy with restricted diffusion suggesting abscess formation or hemorrhage. 2. Fluid collections in the extra-axial space and adjacent to the craniotomy. These do not appear to demonstrate restricted diffusion and may represent a meningocele formation. 3. Interval decrease in mass effect compared to MRI of 09/19/2024. Thank you for letting us participate in the care of this patient. If you are a health care provider and have any questions regarding this report, please contact the number below. For patients who have questions please contact the health ocular care technician that requested your imaging first. Electronically signed by: Armando Pan MD, [facility] ([phone]), at 10/05/2024 12:31 AM XR Chest One View (Exam End: 10/06/2024 10:59 AM) Result Value WORKSTATION ID [id number] Impression Improved but persistent retrocardiac patchy opacity which is favored to represent atelectasis although underlying acute infectious/inflammatory process cannot be excluded. I have personally reviewed the image(s) and the resident's interpretation and agree with the findings, MICHELLE ARSHAD MD at 10/06/2024 3:00 PM Thank you for letting us participate in the care of this patient. If you are a health care provider and have any questions regarding this report, please contact the number below. For patients who have questions please contact the health ocular care technician that requested your imaging first. Electronically signed by: MICHELLE ARSHAD MD, [facility] ([phone]), at 10/06/2024 3:[address] Head wo Contrast (Generic) (Exam End: 10/07/2024 3:25 PM) Result Value WORKSTATION ID [id number] Impression 1. Interval decreased prominence of RIGHT parenchymal hemorrhage with unchanged RIGHT holohemispheric mass effect and RIGHT to LEFT midline shift. 2. No new hemorrhages. I have personally reviewed the image(s) and the resident's interpretation and agree with the findings, Domingo Puentes at 10/07/2024 4:11 PM Thank you for letting us participate in the care of this patient. If you are a health care provider and have any questions regarding this report, please contact the number below. For patients who have questions please contact the health ocular care technician that requested your imaging first. Electronically signed by: Domingo Puentes [facility] ([phone]), at 10/07/2024 4:11 PM ASSESSMENT & PLAN Lucero Bruno 74 y.o. female with PMHx RIGHT occipital hemorrhage, chronic a-fib presented for watchman procedure. Patient developed headache after procedure and was taken to CT where she was found to have RIGHT IPH with mass effect and midline shift s/p craniotomy. 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 Course complicated by dysphagia requiring PEG tube placement. 10/08/24-Lucero Bruno is neurologically stable, deficits include left hemiplegia and left hemianopia. Had a 10/10 headache yesterday with nausea. Repeat imaging stable. Headache relieved with migraine cocktail. MR for DC to SNF pending placement. 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 - Continue Amlodipine 5mg daily - Continue diltiazem 90mg q6 #Pulm - - goal SpO2> 94% - O2 as needed - nebs PRN #GI - >dysphagia - follow up [employer] recs - NPO diet (Give Meds) - maintain bowel reg - GI ppx-protonix 40mg - PEG tube placed 10/04 #FEN/ - - maintain euvolemia, I=O - Goal Na 135-145, K > 4, Mg > 1 # Heme - - goal Hgb > 7, INR < 1.5, Platelets > 50k - DVT ppx: Lovenox, SCDs # Endo - - goal glucose 120-180 --> resistant ISS, DORCAS Recent Labs 09/17/24 0039 05/06/24 0548 HA1C 6.1* 6.0* # ID - > Leukocytosis > Pneumonia > Respiratory Distress, resolved - for temp > 38C --> UA, CXR, blood cx, sputum cx - tylenol PRN - repeat CXR 10/06 - Completed Zosyn (09/24 - 09/29) - CBC - ID consult - C. Diff negative # Other - Activity: as tolerated - Dispo: Shelter facility - Last BM: Last Bowel Movement: 10/04/24 - code status: Attempt Cardiopulmonary Resuscitation - Inpatient Patient Lines/Drains/Airways Status Active Tubes/Lines/Drains Name Placement date Placement time Site Days PIV 10/06/24 1416 22 gauge;1.75 in length median vein (underside of arm), right 10/06/24 1416 -- 2 External Catheter 10/06/24 1712 10/06/24 1712 -- 2 Enterostomy Tube 10/04/24 1236 gastrostomy tube with balloon midline 10/04/24 1236 -- 4 Please page Vascular Neurology with any questions, #[phone] Anitra Ruiz DO Department [place] [address] Associated attestation - Karli Morales MD - 10/08/2024 4:45 PM EST Neurology Staff Note I have reviewed the resident's history during the visit and I agree with the details as written. Myphysical examination confirms the resident's findings. The assessment and plan were formulated in discussion with me at the time of the visit and I agree with them as documented. * Dheeraj Moreira - 10/07/2024 3:56 PM EST Reserve Officer Encounter Note Patient Name: Lucero Bruno : [id number] MR#: [id number] Admit Date: 09/16/2024 10:06 AM Hospital Day 21 days Narrative:Follow-up visit for continued assessment and support. Assessment:Family coping positively with stresses of illness/hospitalization at this time. I met with patient boy friend and he was happy that she is getting better day and he was happy about all progress. Intervention and Outcome:Provided emotional, spiritual support and listening presence. Reserve Officer services accepted. Conversation to build trusting relationship. Provided pastoral presence. Provided spiritual guidance. Follow-up: yes Time in Direct Care:04 Mins Dheeraj Moreira 10/07/2024 * Areli Hathaway SLP - 10/07/2024 1:29 PM EST Speech Therapy Note Patient Profile: Lucero Bruno is a 74 y.o. female with PMHx of A-fib, CHRISTOPHER, HLD, and prior IPH (04/2024) who presented to [facility] on 09/16/2024 for placement of Watchman with cardiology. She developed headaches and nausea post-operatively and was found to have a large R [id number] IPH, now s/p craniotomy. Patient was intubated from 09/16-09/21 with extubation complicated by stridor requiring re-intubation from 09/21-09/26 (11 days total). C[employer] EDGE TRIMMER has been following since 09/27 for communication and dysphagia management. Interval History: No acute events Recent Imaging: No new imaging on file. Subjective: Patient was pleasant and engaged with care. Her boyfriend, Chase, was present at the bedside and supportive. Objective: Patient seen for dysphagia management and demonstrated the following: Pain: Reports headache, RN aware and paged team Respiratory Status: Room air, satting 96% Current Diet: NPO diet (Give Meds) Feeding / Oral Care Status: Patient requires cues and/or assistance due to significant motor limitations; able to accept and bring a swab or spoon to her mouth with infrequent verbal cues (overshootsto L) Cognitive-Linguistic Status: A&Ox4 Good focused attention Responding to questions appropriately using a combination of head nods, hand gestures, and/or shortutterances (1-4 words) Writing is reasonably intelligible at the sentence level; able to independently request clipboard Left-sided inattention; able to turn her head, localize, and identify objects and colors on her left side when prompted. Encouraged patient's significant other to stand or sit on her left side to encourage left-sided attention Command Following: Follows multi-step commands within motor constraints Positioning: HOB at 60 degrees, requires frequent repositioning due to unilateral weakness and poorbody awareness Oral Motor Examination: WFL Impaired Comments STRUCTURES Facial Symmetry X Left facial droop Lips X Reduced retraction on L, improving on R Tongue X Deviates L on protrusion; ROM, agility, and coordination improving though still impaired Jaw X Palate/Velum X Dentition X Missing right upper teeth and multiple others; visible decay OTHER Phonation X Gravelly, strained, hypophonic Intelligibility X Approximately 75% at the word level; most impacted by strain and articulatory imprecision Volitional Cough X Reduced but gradually improving Sensation X Suspect L sensory impairment vs. inattention, improving Secretion Management X Bolus Presentation(s): Tested Comments Thin liquids [place] thick liquids Honey thick liquids Pureed solids Dysphagia soft Mechanical soft Regular solids Pills Other X [place] ice Oral Preparatory Phase Mastication: N/A Oral transit: Lingual movement is sluggish but subjectively less effortful than previous Bolus cohesion: Suspect reduced due to decreased lingual control Oral containment: Reduced labial seal with intermittent left-sided anterior loss Oral stasis: None after double swallow Pharyngeal Phase Swallow initiation: Present, swallows 2x/bite with variable timeliness Vocal quality change: None Cough / throat clear: Delayed cough x2 over 4 oz of orange ice Pt complaint of food getting stuck: None with limited volumes and consistencies Fatigue across trials: None with slow rate Respiratory rate and respiratory swallow pattern: Unlabored and coordinated Esophageal Observations No overt signs of esophageal dysphagia were noted Compensatory Techniques: Extended time, physical assistance (clinician held cup and patient held spoon) Education: Patient and her significant other were educated on results and recommendations, including instrumental swallow evaluation using MBS, and verbalized understanding. Patient status and swallow recommendations were discussed with nursing. Assessment: Aubree was seen today for communication and dysphagia management. She demonstrated ongoing improvements in orofacial range of motion and coordination, and phonatory abilities. Aubree's voice was gravelly and strained and her speech was slow and effortful. However, when asked, Aubree endorsed improved control of her lips, tongue, and voice compared to previous sessions. These changes positively impacted Aubree's oral manipulation of small amounts of PO. Her oral phase was sluggish but subjectively more efficient compared to previous observations. She also presented with fewer overt signs of aspiration today. Aubree will benefit from ongoing swallow stimulation. Please provide single ice chips between C[employer] AND EDGE TRIMMER sessions when she is alert and accepting. We will continue to follow for serial reassessment, including MBS pending radiologist availability. Diagnosis: Oral and suspected pharyngeal dysphagia 2/2 IPH (improving), dysphonia 2/2 IPH vs. 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 It is based on evidence indicating that aspiration of small amounts of water is a benign event - unlike juice, soda or coffee, water has a neutral pH level. Therefore, it is well tolerated by the lungs and is quickly absorbed into the bloodstream. Guidelines: Ensure patient is alert, awake, and stable from a respiratory standpoint. Ensure patient is sitting upright. Provide frequent and thorough oral care. Oral care must be provided before giving ice chips Patient may have ice chips following oral care: Provide small single ice chips, one at a time. Allow adequate time after each ice chip for patient to cough or clear their throat if needed. Provide no more than a few (~1-5) ice chips in one sitting. Stop giving ice chips if patient fatigues or becomes uncomfortable. PO Medications: IV or other alternative means only Aspiration Precautions: Sit upright with all PO intake Single ice chips only Patient will require feeding assistance Excellent oral care to reduce risk of aspiration pneumonia Speech Therapy Goals: Pt will tolerate the least restrictive diet without further respiratory decompensation. ONGOING Pt will be independent with aspiration precautions, diet modifications, and safe swallowing strategies. ONGOING Pt will participate in an instrumental swallow evaluation. NEW Plan: Therapy Frequency (C[employer]TER AND EDGE TRIMMER Eval): 3-5 times/wk Patient is in agreement with the plan of care. Total Minutes (Speech Language Pathology): 40 Areli Hathaway MS, CCC-C[employer]GE TRIMMER Speech-Language Pathologist Inpatient Rehabilitation Pager # [phone] * Enedina Solomon, RD - 10/07/2024 10:34 AM EST Nutrition Progress Note Lucero Bruno is a 74 y.o. female with PMHx RIGHT occipital hemorrhage, chronic a-fib presentedfor watchman procedure. Patient developed headache after procedure and was taken to CT where she was found to have RIGHT IPH with mass effect and midline shift s/p craniotomy. 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 Course complicated by dysphagia requiring PEG tube placement. Interval History No data found. Reason for Assessment: Follow-up, Tube Feeding Nutrition Recommendations: NPO per C[employer] AND EDGE TRIMMER 10/06. Gtube placed 10/04. Suggest transition to bolus feeds, goal of Nutren 1.5 at 250 mL x 4 daily + 6 scoops protein powder. At goal, this will provide: Nutren 1.5 Total Volume Per Day: 1000 mL Scoops of Protein: 6 Calories per Day: 1650 Protein per Day: 104 g Free Water mL per Day: 1064 % RDI: 100 % Monitor hydration status on above TFs as they are concentrated. Pt may need additional fluids depending on IVFs, med flushes, etc. Daily BMP w/ mag and phos Monitor lytes - replete as indicated Continue MVI Goal of 1 BM per 24-48 hrs on EN Goal BG <180 Daily Weights Pt meets criteria for severe protein calorie malnutrition as outlined below. Meet the following enteral nutrition (EN) milestones to be nutritionally ready for discharge: []Patient is tolerating goal volume and schedule (cycle/bolus) of enteral regimen [x]Electrolytes and blood sugars have been stable x 48 hours with goal regimen [x]Has not required IV fluids for hydration x 48 hours []Patient or capable caregiver has received education regarding home tube feeds []Home enteral regimen has been reviewed for errors and potential barriers to insurance coverage []Identification of a provider to manage enteral nutrition outside of the hospital []Delivery of enteral formula and supplies is scheduled Patient IS NOT nutritionally ready for discharge Details/recommendations for uncompleted steps: transition to bolus feeds today Current Nutrition Regimen: Active Orders Diet NPO diet (Give Meds) Frequency: Effective Now Number of Occurrences: Until Specified All Active TF Orders: Tubefeeding Orders (From admission, onward) Start Dose/Rate Route Frequency Ordered Stop 10/02/24 1130 tube feeding diet 960 mL Per NG tube CONTINUOUS 10/02/24 1037 10/03/24 2359 Average tube feeding provision over past 2 days; 745 mL vs daily goal volume of 960 mL formula (78%of goal); per I/O's. Average protein powder provision over the past 24 hours; 6 scoops vs daily goal of 6 scoops (100% of goal) Tolerance or barriers to meeting needs: holds - NPO for PEG placement 10/04 Assessment: Lab Results Component Value Date NA 138 10/07/2024 NA 141 05/08/2024 K 4.0 10/07/2024 K 4.2 05/08/2024 CL 102 10/07/2024 CL 105 05/08/2024 CO2 27 10/07/2024 CO2 25 05/08/2024 BUN 17 10/07/2024 BUN 14 05/08/2024 CREATININE 0.36 (L) 10/07/2024 CREATININE 0.68 (L) 05/08/2024 ESTGFR 108 10/07/2024 ESTGFR 92 05/08/2024 MAGNESIUM 0.72 10/07/2024 MAGNESIUM 0.85 05/08/2024 CALCIUM 9.0 10/07/2024 CALCIUM 9.2 05/08/2024 PHOS 2.6 10/07/2024 PHOS 3.1 05/08/2024 AST 28 09/26/2024 AST 15 05/08/2024 ALT 72 (H) 09/26/2024 ALT 14 05/08/2024 ALKPHOS 81 09/26/2024 ALKPHOS 92 05/08/2024 BILITOT 0.4 09/26/2024 BILITOT 0.4 05/08/2024 BILIDIR <0.2 09/26/2024 BILIDIR 0.1 05/08/2024 TRIG 95 09/20/2024 TRIG 101 05/06/2024 CRP 8.6 (H) 10/05/2024 HA1C 6.1 (H) 09/17/2024 HA1C 6.0 (H) 05/06/2024 25OHVITD 38 11/14/2023 Lab Results Component Value Date POCGLU 166 10/07/2024 POCGLU 175 10/07/2024 POCGLU 177 10/07/2024 POCGLU 163 10/06/2024 POCGLU 175 10/06/2024 POCGLU 155 10/06/2024 Patient Lines/Drains/Airways Status Active Nutritional LDAs Name Placement date Placement time Site Days Enterostomy Tube 10/04/24 1236 gastrostomy tube with balloon midline 10/04/24 1236 -- 3 PIV 10/06/24 1416 22 gauge;1.75 in length median vein (underside of arm), right 10/06/24 1416 -- 1 External Catheter 10/06/24 1712 10/06/24 171 -- 1 Oxygen Therapy / Airway Device: Nasal cannula Shift Pressure Injury Prevention Occiput: No Injury Thoracic Spine: No Injury Sacral: Redness, Blanchable Ischial - left: No Injury Ischial - right: No Injury Heel - left: No Injury Heel - right: No Injury Elbow - left: No Injury Elbow - right: No Injury Device Sites: BP Cuff, ECG Leads, O2 sat monitor, oxygen tubing, IV sites, hill EEG Skin Appearance: clean, dry, intact Other Sites: CVC Last Bowel Movement: 10/04/24 Intake/Output Summary (Last 24 hours) at 10/07/2024 1034 Last data filed at 10/07/2024 0800 Gross per 24 hour Intake 810 ml Output 1300 ml Net -490 ml Relevant medications: 30 mL free water bolus q4 hours Lispro Thera M Protonix Zofran PRN Anthropometrics: Admit Weight: 88.45 kg Estimated body mass index is 34.18 kg/m?? as calculated from the following: Height as of 09/21/24: 152.4 cm (5'). Weight as of this encounter: 79.4 kg (175 lb). [place] Body Weight (IBW) (kg): 45.45 Wt Readings from Last 10 Encounters: 10/06/24 79.4 kg (175 lb) 09/21/24 91.3 kg (201 lb 4.5 oz) 09/18/24 91.5 kg (201 lb 11.5 oz) 07/28/24 85.3 kg (188 lb) 05/24/24 81.6 kg (180 lb) 05/08/24 84.1 kg (185 lb 6.4 oz) 05/08/24 82 kg (180 lb 12.4 oz) 04/23/24 83.9 kg (185 lb) 03/03/24 85 kg (187 lb 6.3 oz) 11/14/23 87.2 kg (192 lb 3.2 oz) Patient Vitals for the past 168 hrs: Weight 10/06/24 0551 79.4 kg (175 lb) 10/05/24 0553 79.3 kg (174 lb 12.8 oz) 10/04/24 0600 79.3 kg (174 lb 12.8 oz) 10/03/24 0600 80.5 kg (177 lb 7.5 oz) 10/02/24 0600 80.7 kg (178 lb) 10/01/24 0600 85.5 kg (188 lb 7.9 oz) Weight Source: Bed Edema per flowsheets Date Grading 10/05 1+ bilateral ankles, 2+ generalized, 2+ left hand 10/03 1+ bilateral ankles, 2+ generalized 10/01 1+ BLE, 2+ LUE Estimated / Assessed Needs: Kcal / K - 1597 Kcal (14 Kcal/Kg - 18 Kcal/Kg) Estimated Protein Needs: 91 g - 114 g (2.0 g/Kg - 2.5 g/Kg IBW) Nutrition intake and intake history / interview: 10/07: RN requesting transition to bolus feeds. Order pended and team paged. 10/06: C[employer] AND EDGE TRIMMER continues to recommend NPO, per note 10/05. Per MAR, TF running at goal. Unable to confirm TF volume provided on pump as history was cleared. Wt appears to be trending down and does not seem related to fluid shifts - likely related to frequent holds preventing full volume of TF being provided. 10/04: TF held at midnight last night for possible PEG placement today. Per chart, pt has lost additional 6.2kg (7.2%) since last nutrition assessment - lasix given on 10/01. LBM 10/03. Potassium and phosphorus now WNL without need for repletion since 10/01. 10/01: TF restarted 09/29 at 1645hr; currently running at 30mL/hr. Pt showing signs of refeeding per 10/01 labs (hypokalemia, hypophosphatemia); KCl repletion noted but . Some high BG noted 09/30 (229, 196, 207, 233); insulin regimen still adjusting for Pep VHP rather than Nutren 1.5, team aware. C[employer] AND EDGE TRIMMER continues to recommend NPO per 09/30 note. LBM 09/29, optimize regimen. Per EMR, pt with 4% wt loss in <1 week (196lbs on 09/24 to 188lbs on 09/28) which is clinically significant. Unable to complete full NFPE at this time. Planned for upcoming PEG placement. 09/29: TF Dc'd 09/28 @ 1835hr. C[employer] EDGE TRIMMER continues to recommend NPO, need for alternate nutrition. Updated TF recs pended as above. Pt now with <50% EER x 5 days, increasing risk for malnutrition. 09/27: TF off. Pressor off. Extubated, not cleared for PO intake. 09/23: TF held for possible extubation today, restarted this afternoon. Reassessed needs, TF recs updated. 09/21: Pt extubated and reintubated today, restarted on propofol. TF held. 09/17: Cx for TF recs. Per chart, wt has been fluctuating 82-89 kg x 10 months. Nutrition Focused Physical Exam: Performed (10/01 by MLS) Subcutaneous Fat Loss Orbital region: None present Upper arm region (triceps/biceps): None present Thoracic and Lumbar regions (ribs, lower back, and maxillary line): Not assessed Lean Muscle Loss [place] region (temporalis muscle): None present Clavicle bone region (pectoralis major): None present Dorsal hand (interosseous muscle): Not assessed (pt unable to engage muscle) Shoulder (deltoid): None present Scapular bone region (latissimus dorsi, trapezius muscles): Not assessed Thigh region (quadriceps muscle): Not assessed Posterior calf region (gastrocnemius muscle): Not assessed Malnutrition Diagnosis: Identified: less than or equal to 50% of estimated energy requirement for greater than or equal to 5 days and greater than 2% weight loss in 1 week is consistent with Severe protein-calorie malnutrition in the setting of acute illness or injury (Mari main al, JPEN J Parenteral Enteral Nutr. 2011; 36(3): 273-83) Nutrition to continue to follow up while inpatient * Anitra Ruiz DO - 10/07/2024 7:12 AM EST Images from the original note were not included. VASCULAR NEUROLOGY DAILY PROGRESS NOTE Admit Date 09/16/2024 Responsible Attending: Karli Morales MD Primary Provider: Leila Manjarrez [phone] Hospital Day: Hospital Day: 22 Patient ID 74 y.o. female with PMHx RIGHT occipital hemorrhage, chronic a-fib presented for watchman procedure. Patient developed headache after procedure and was taken to CT where she was found to have RIGHT IPH with mass effect and midline shift s/p craniotomy. 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 Course complicated by dysphagia requiring PEG tube placement. 24hr Events: - Void trial yesterday successful - CHAVEZ CARRASCO - This morning denies any acute concerns or complaints, endorses L shoulder pain EXAM Last value Range last 24 hrs Temperature Temp: 36.9 ??C (98.4 ??F) Temp: [36.7 ??C (98.1 ??F)-37 ??C (98.6 ??F)] Heart Rate Heart Rate: (!) 104 Heart Rate: [79-104] Blood Pressure BP: 154/71 BP: (95-163)/(44-104) Respiratory Rate Resp: 22 Resp: [17-27] SpO2 SpO2: 94 % SpO2: [90 %-98 %] GENERAL - Alert, awake, no verbal output CN - PERRL, right gaze preference, unable to cross midline to left. No blink to threat on left. MOTOR - LUE with clasp knife rigidity LUE/LLE 0/5 RUE/RLE able to sustain gravity REFLEX - Babinski elicited strong withdrawal b/l SENSATION - intact sensation on right COORDINATION - FTN intact on RUE GAIT - not assessed DATA I/O last 3 completed shifts: In: 2210 [I.V.:30; NG/GT:1520] Out: 2215 [Urine:2215] Labs Recent Labs 10/07/24 0112 10/06/24 0033 10/05/24 0008 10/04/24 0029 10/03/24 0405 WBC 15.48* 16.59* 13.56* 14.67* 15.33* HGB 10.7* 10.8* 10.8* 10.4* 10.5* HCT 32.4* 32.9* 33.5* 32.8* 32.4* PLATELET 211 237 241 303 359* NEUTROABS 13.16* 14.40* 11.69* 12.52* 13.43* Recent Labs 10/07/24 0112 10/06/24 0033 10/05/24 0008 10/04/24 0029 10/03/24 0405 NA 138 138 139 142 146* K 4.0 4.3 4.2 4.1 4.0 CL 102 101 103 106 108* CO2 27 26 29 26 30 BUN 17 21* 24* 24* 22* CREATININE 0.36* 0.45* 0.36* 0.36* 0.35* GLUCOSE 190 211* 136 166 199 Recent Labs 10/07/24 0112 10/06/24 0033 10/05/247 CALCIUM 9.0 9.0 9.1 MAGNESIUM 0.72 0.73 0.85 PHOS 2.6 2.5 4.1 Lipid Panel Lab Results Component Value Date CHLPL 203 09/17/2024 CHLPL 135 05/06/2024 HDL 45 09/17/2024 HDL 46 05/06/2024 TRIG 95 09/20/2024 TRIG 101 05/06/2024 LDLCHOL 69 05/06/2024 LDLDIRECT 133 09/17/2024 Lab Results Component Value Date HA1C 6.1 (H) 09/17/2024 Micro: Microbiology Results (last 7 days) Procedure Component Value - Date/Time Blood culture [[id number]] Collected: 09/26/24 1442 Lab Status: Final result Specimen: Blood, Venous Updated: 10/01/24 1602 Blood Culture No growth at 120 hours Blood culture [[id number]] Collected: 09/26/24 1453 Lab Status: Final result Specimen: Blood, Venous Updated: 10/01/24 1602 Blood Culture No growth at 120 hours Imaging/EKG Results for orders placed or performed during the hospital encounter of 09/16/24 CT Head wo Contrast (Generic) (Exam End: 09/16/2024 5:26 PM) Result Value WORKSTATION ID [id number] Impression Interval expansion of now large right-sided temporal occipital intraparenchymal hemorrhage with significant mass effect resulting in 1 cm leftward midline shift. Per chart review, this patient was seen by neurosurgery and taken emergently to the OR. I have personally reviewed the image(s) and the resident's interpretation and agree with the findings, Lana Reinoso at 09/16/2024 6:01 PM Thank you for letting us participate in the care of this patient. If you are a health care provider and have any questions regarding this report, please contact the number below. For patients who have questions please contact the health ocular care technician that requested your imaging first. Electronically signed by: Lana Reinoso [facility] ([phone]), at 09/16/2024 6:[address] Head wo Contrast (Generic) (Exam End: 09/16/2024 11:21 PM) Result Value WORKSTATION ID [id number] Impression CT head: 1. Interval craniotomy with residual or recurrent hemorrhage right temporal and parietal lobe. 2. New hemorrhage right [...] in the care of this patient. If you are a health care provider and have any questions regarding this report, please contact the number below. For patients who have questions please contact the health ocular care technician that requested your imaging first. Electronically signed by: Armando Pan MD, [facility] ([phone]), at 09/17/2024 1:[address] Venogram Brain (Exam End: 09/16/2024 11:21 PM) Result Value WORKSTATION ID [id number] Impression CT head: 1. Interval craniotomy with residual or recurrent hemorrhage right temporal and parietal lobe. 2. New hemorrhage right [...] in the care of this patient. If you are a health care provider and have any questions regarding this report, please contact the number below. For patients who have questions please contact the health ocular care technician that requested your imaging first. Electronically signed by: Armando Pan MD, [facility] ([phone]), at 09/17/2024 1:42 AM XR Chest One View (Exam End: 09/16/2024 11:00 PM) Result Value WORKSTATION ID [id number] Impression Satisfactorily positioned enteric and endotracheal tubes. Left lower lobe atelectasis versus pneumonia. Thank you for letting us participate in the care of this patient. If you are a health care provider and have any questions regarding this report, please contact the number below. For patients who have questions please contact the health ocular care technician that requested your imaging first. Electronically signed by: Pamela Beard MD, [facility] ([phone]), at 09/17/2024 12:09 AM XR Abdomen 1 view (Generic) (Exam End: 09/16/2024 11:00 PM) Result Value WORKSTATION ID [id number] Impression Satisfactorily positioned enteric and endotracheal tubes. Left lower lobe atelectasis versus pneumonia. Thank you for letting us participate in the care of this patient. If you are a health care provider and have any questions regarding this report, please contact the number below. For patients who have questions please contact the health ocular care technician that requested your imaging first. Electronically signed by: Pamela Beard MD, [facility] ([phone]), at 09/17/2024 12:[address] Head wo Contrast (Generic) (Exam End: 09/17/2024 4:51 AM) Result Value WORKSTATION ID [id number] Impression Increased size and density of dominant right parietal hematoma, and of hemorrhage extending medially into the basal ganglia. Foci of thalamocapsular hemorrhage on the right are stable. No evidence of progressive intraventricular hemorrhage or ventricular dilation. No definitive increase in leftward midline shift or herniation. Thank you for letting us participate in the care of this patient. If you are a health care provider and have any questions regarding this report, please contact the number below. For patients who have questions please contact the health ocular care technician that requested your imaging first. Electronically signed by: Elvin Bolden DO, [facility] ([phone]), at 09/17/2024 8:38 AM XR Chest One View (Exam End: 09/17/2024 2:13 PM) Result Value WORKSTATION ID [id number] Impression 1. No focal opacity in lung 2. Pulmonary edema, progressed since last examination. 3. Tip of ET tube is 23 mm superior cuff to jonathan. Consider adjustment. 4. Sidehole and tip of NG tube is below the diaphragm. Thank you for letting us participate in the care of this patient. If you are a health care provider and have any questions regarding this report, please contact the number below. For patients who have questions please contact the health ocular care technician that requested your imaging first. Electronically signed by: Zoey Zabala MD, [facility] ([phone]), at 09/17/2024 2:43 PM XR Chest One View (Exam End: 09/18/2024 8:43 AM) Result Value WORKSTATION ID [id number] Impression Tubes and lines as described. Blunting of the left costophrenic angle suggests tiny layering left effusion with associated left basilar consolidation/atelectasis Thank you for letting us participate in the care of this patient. If you are a health care provider and have any questions regarding this report, please contact the number below. For patients who have questions please contact the health ocular care technician that requested your imaging first. Abdomen 1 view (Generic) (Exam End: 09/18/2024 12:31 PM) Result Value WORKSTATION ID [id number] Impression Dobbhoff tube tip along the greater curve of the stomach. Thank you for letting us participate in the care of this patient. If you are a health care provider and have any questions regarding this report, please contact the number below. For patients who have questions please contact the health ocular care technician that requested your imaging first. Brain wwo Contrast (Generic) (Exam End: 09/19/2024 5:43 PM) Result Value WORKSTATION ID [id number] Impression Unchanged size of large right cerebral hemisphere ICH status post partial evacuation. Numerous small foci of decreased acute infarction both along and separate from the site of hemorrhage. These foci are present in both cerebral hemispheres and have a pattern most consistent with embolic infarction. No evidence of [employer] malignancy Thank you for letting us participate in the care of this patient. If you are a health care provider and have any questions regarding this report, please contact the number below. For patients who have questions please contact the health ocular care technician that requested your imaging first. Electronically signed by: Rios Swartz MD, [facility] ([phone]), at 09/20/2024 8:[address] Head wo Contrast (Generic) (Exam End: 09/21/2024 3:50 AM) Result Value WORKSTATION ID [id number] Impression Stable hemorrhage right temporal, parietal, right posterior limb internal capsule and right thalamus. Mild progression of vasogenic edema adjacent to hemorrhage. Similar pattern and extent of local and generalized mass effect with stable subfalcine herniation and uncal herniation. Thank you for letting us participate in the care of this patient. If you are a health care provider and have any questions regarding this report, please contact the number below. For patients who have questions please contact the health ocular care technician that requested your imaging first. Electronically signed by: Armando Pan MD, [facility] ([phone]), at 09/21/2024 4:55 AM XR Abdomen 1 view (Generic) (Exam End: 09/21/2024 2:01 PM) Result Value WORKSTATION ID [id number] Impression Dobbhoff tube and enteric tube sidehole and tip is projecting over the expected location of the stomach. I have personally reviewed the image(s) and the resident's interpretation and agree with the findings, Shraddha Cox MD at 09/21/2024 3:40 PM Thank you for letting us participate in the care of this patient. If you are a health care provider and have any questions regarding this report, please contact the number below. For patients who have questions please contact the health ocular care technician that requested your imaging first. Electronically signed by: Shraddha Cox MD, [facility] ([phone]), at 09/21/2024 3:40 PM XR Chest One View (Exam End: 09/21/2024 2:01 PM) Result Value WORKSTATION ID [id number] Impression ET tube with tip projecting approximately 1.4 cm above the jonathan. Recommend retracting approximately 2 cm and follow-up imaging. New left basilar atelectasis and/or small pleural effusion. Aspiration or pneumonia could also this appearance. I Sacha Shipley MD discussed the results (Impression #1) with Bonnie Vazquez on 09/21/2024 4:42 PM and verified that the results were understood. I have personally reviewed the image(s) and the resident's interpretation and agree with the findings, Octavio Scott MD at 09/21/2024 5:09 PM Thank you for letting us participate in the care of this patient. If you are a health care provider and have any questions regarding this report, please contact the number below. For patients who have questions please contact the health ocular care technician that requested your imaging first. Electronically signed by: Octavio Scott MD, [facility] ([phone]), at 09/21/2024 5:[address] Head wo Contrast (Generic) (Exam End: 09/22/2024 4:02 AM) Result Value WORKSTATION ID [id number] Impression Stable head CT status post removal of subcutaneous drain. No new or enlarging hemorrhage. Stable pattern of mass effect Thank you for letting us participate in the care of this patient. If you are a health care provider and have any questions regarding this report, please contact the number below. For patients who have questions please contact the health ocular care technician that requested your imaging first. Electronically signed by: Armando Pan MD, [facility] ([phone]), at 09/22/2024 4:[address] Angiogram Chest for Pulmonary Embolus w Contrast (Exam End: 09/26/2024 1:37 PM) Result Value WORKSTATION ID [id number] Impression 1. No pulmonary embolism. 2. Pulmonary edema. 3. Bibasilar atelectasis. Superimposed patchy airspace opacity in the left lower lobe may represent atelectasis versus pneumonia. 4. Mild emphysema. 5. Mild cardiomegaly. Left atrial appendage occlusion device in situ. Mild multifocal coronary atherosclerosis. Correlation with echocardiography may be of benefit. 6. Unexpected Findin mm indeterminant left adrenal nodule. Per ACR white paper guidelines, follow-up CT of the Abdomen (Adrenal protocol - without and with intravenous contrast) is recommended in one year. 7. Mild sigmoid diverticulosis coli without secondary signs of acute diverticulitis. 8. Interval development of anasarca, which may be related to hypervolemia, hypoproteinemia, or combination thereof. 9. Endotracheal catheter in situ with tip 4 mm above the jonathan. Recommend retraction. 10. Enteric catheter in situ with tip terminating in the gastric pylorus. 11. Hill catheter in situ. Persistent distention of the urinary bladder. Correlation with catheter functionality is recommended. 12. Rectal catheter in situ. Thank you for letting us participate in the care of this patient. If you are a health care provider and have any questions regarding this report, please contact the number below. For patients who have questions please contact the health ocular care technician that requested your imaging first. Electronically signed by: Marvin Decker DO, [facility] ([phone]), at 09/26/2024 1:[address] Head wo Contrast (Generic) (Exam End: 09/26/2024 1:37 PM) Result Value WORKSTATION ID [id number] Impression 1. Stable right-sided parenchymal and subdural hemorrhages, associated mass effect and midline shift. 2. Stable left intraventricular hemorrhage. 3. No new or enlarging hemorrhages or extra-axial collections. Thank you for letting us participate in the care of this patient. If you are a health care provider and have any questions regarding this report, please contact the number below. For patients who have questions please contact the health ocular care technician that requested your imaging first. Electronically signed by: Smiley Cordova MD, [facility] ([phone]), at 09/26/2024 2:[address] Abdomen & Pelvis w Contrast (Exam End: 09/26/2024 1:37 PM) Result Value WORKSTATION ID [id number] Impression 1. No pulmonary embolism. 2. Pulmonary edema. 3. Bibasilar atelectasis. Superimposed patchy airspace opacity in the left lower lobe may represent atelectasis versus pneumonia. 4. Mild emphysema. 5. Mild cardiomegaly. Left atrial appendage occlusion device in situ. Mild multifocal coronary atherosclerosis. Correlation with echocardiography may be of benefit. 6. Unexpected Findin mm indeterminant left adrenal nodule. Per ACR white paper guidelines, follow-up CT of the Abdomen (Adrenal protocol - without and with intravenous contrast) is recommended in one year. 7. Mild sigmoid diverticulosis coli without secondary signs of acute diverticulitis. 8. Interval development of anasarca, which may be related to hypervolemia, hypoproteinemia, or combination thereof. 9. Endotracheal catheter in situ with tip 4 mm above the jonathan. Recommend retraction. 10. Enteric catheter in situ with tip terminating in the gastric pylorus. 11. Hill catheter in situ. Persistent distention of the urinary bladder. Correlation with catheter functionality is recommended. 12. Rectal catheter in situ. Thank you for letting us participate in the care of this patient. If you are a health care provider and have any questions regarding this report, please contact the number below. For patients who have questions please contact the health ocular care technician that requested your imaging first. Electronically signed by: Marvin Decker DO, [facility] ([phone]), at 09/26/2024 1:54 PM XR Chest One View (Exam End: 09/28/2024 4:06 AM) Result Value WORKSTATION ID [id number] Impression 1. Limited examination. 2. Interval removal of the endotracheal catheter. 3. Stable position of other medical hardware. 4. Decreased but persistent patchy left retrocardiac airspace opacity, may be resolving atelectasis or pneumonia. Thank you for letting us participate in the care of this patient. If you are a health care provider and have any questions regarding this report, please contact the number below. For patients who have questions please contact the health ocular care technician that requested your imaging first. Electronically signed by: Marvin Decker DO, [facility] ([phone]), at 09/28/2024 4:12 AM XR Chest One View (Exam End: 09/28/2024 7:58 PM) Result Value WORKSTATION ID [id number] Impression 1. Slightly increased opacity in the left lower lung which may be due to atelectasis, aspiration or pneumonia. 2. Small bilateral pleural effusions. Thank you for letting us participate in the care of this patient. If you are a health care provider and have any questions regarding this report, please contact the number below. For patients who have questions please contact the health ocular care technician that requested your imaging first. Electronically signed by: Sammy Story MD, [facility] ([phone]), at 09/28/2024 8:09 PM XR Chest One View (Exam End: 09/29/2024 1:13 PM) Result Value WORKSTATION ID [id number] Impression 1. Limited examination. 2. Stable position of medical hardware. 3. The lung volumes are decreased, which accentuates the pulmonary vascular markings and cardiac silhouette. 4. Accounting for this, a stable mild component of congestive heart failure / fluid overload is suspected. 5. Stable moderate cardiomegaly. 6. Possible inferior subluxation of the left humerus. Correlation with patient symptomatology is recommended. If clinically indicated, further evaluation with dedicated left shoulder radiographs can be obtained. Thank you for letting us participate in the care of this patient. If you are a health care provider and have any questions regarding this report, please contact the number below. For patients who have questions please contact the health ocular care technician that requested your imaging first. Electronically signed by: Marvin Decker DO, [facility] ([phone]), at 09/30/2024 12:[address] Head wo Contrast (Generic) (Exam End: 10/04/2024 1:40 AM) Result Value WORKSTATION ID [id number] Impression 1. Overall interval improvement of the mass effect on the right hemisphere with evolution of blood products within the parenchyma post craniotomy. 2. Mild interval increase in extra-axial fluid inferior margin of the craniotomy. 3. Mild interval increase in size of third and lateral ventricles as well as peripheral CSF spaces 4. No new hemorrhage or infarction Thank you for letting us participate in the care of this patient. If you are a health care provider and have any questions regarding this report, please contact the number below. For patients who have questions please contact the health ocular care technician that requested your imaging first. Electronically signed by: Armando Pan MD, [facility] ([phone]), at 10/04/2024 2:12 AM MRI Brain wwo Contrast (Generic) (Exam End: 10/04/2024 10:30 PM) Result Value WORKSTATION ID [id number] Impression 1. Fluid collections in the right parietal lobe now showing some restricted diffusion, question abscess formation or hemorrhage. Fluid in the collections projecting deep to the craniotomy and at the margin of the craniotomy with restricted diffusion suggesting abscess formation or hemorrhage. 2. Fluid collections in the extra-axial space and adjacent to the craniotomy. These do not appear to demonstrate restricted diffusion and may represent a meningocele formation. 3. Interval decrease in mass effect compared to MRI of 09/19/2024. Thank you for letting us participate in the care of this patient. If you are a health care provider and have any questions regarding this report, please contact the number below. For patients who have questions please contact the health ocular care technician that requested your imaging first. Electronically signed by: Armando Pan MD, [facility] ([phone]), at 10/05/2024 12:31 AM XR Chest One View (Exam End: 10/06/2024 10:59 AM) Result Value WORKSTATION ID [id number] Impression Improved but persistent retrocardiac patchy opacity which is favored to represent atelectasis although underlying acute infectious/inflammatory process cannot be excluded. I have personally reviewed the image(s) and the resident's interpretation and agree with the findings, MICHELLE ARSHAD MD at 10/06/2024 3:00 PM Thank you for letting us participate in the care of this patient. If you are a health care provider and have any questions regarding this report, please contact the number below. For patients who have questions please contact the health ocular care technician that requested your imaging first. Electronically signed by: MICHELLE ARSHAD MD, [facility] ([phone]), at 10/06/2024 3:00 PM ASSESSMENT & PLAN Lucero Bruno 74 y.o. female with PMHx RIGHT occipital hemorrhage, chronic a-fib presented for watchman procedure. Patient developed headache after procedure and was taken to CT where she was found to have RIGHT IPH with mass effect and midline shift s/p craniotomy. 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 Course complicated by dysphagia requiring PEG tube placement. 10/07/24-Lucero Bruno is neurologically stable, deficits include left hemiplegia and left hemianopia. Changed tube feeds to bolus feeds and adjusted insulin accordingly. MR for DC to SNF pending placement. 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 - Continue Amlodipine 5mg daily - Continue diltiazem 90mg q6 #Pulm - - goal SpO2> 94% - O2 as needed - nebs PRN #GI - >dysphagia - follow up [employer] recs - NPO diet (Give Meds) - maintain bowel reg - GI ppx-protonix 40mg - PEG tube placed 10/04 #FEN/ - - maintain euvolemia, I=O - Goal Na 135-145, K > 4, Mg > 1 # Heme - - goal Hgb > 7, INR < 1.5, Platelets > 50k - DVT ppx: Lovenox, SCDs # Endo - - goal glucose 120-180 --> resistant ISS, DORCAS Recent Labs 09/17/24 0039 05/06/24 0548 HA1C 6.1* 6.0* # ID - > Leukocytosis > Pneumonia > Respiratory Distress, resolved - for temp > 38C --> UA, CXR, blood cx, sputum cx - tylenol PRN - repeat CXR 10/06 - Completed Zosyn (09/24 - 09/29) - CBC - ID consult - C. Diff negative # Other - Activity: as tolerated - Dispo: Shelter facility - Last BM: Last Bowel Movement: 10/04/24 - code status: Attempt Cardiopulmonary Resuscitation - Inpatient Patient Lines/Drains/Airways Status Active Tubes/Lines/Drains Name Placement date Placement time Site Days PIV 10/06/24 1416 22 gauge;1.75 in length median vein (underside of arm), right 10/06/24 1416 -- 1 External Catheter 10/06/24 1712 10/06/24 1712 -- 1 Enterostomy Tube 10/04/24 1236 gastrostomy tube with balloon midline 10/04/24 1236 -- 3 Please page Vascular Neurology with any questions, #[phone] Anitra Ruiz DO Department of Neurology [place] [phone] Associated attestation - Karli Morales MD - 10/07/2024 3:33 PM EST Neurology Staff Note I have reviewed the resident's history during the visit and I agree with the details as written. Myphysical examination confirms the resident's findings. The assessment and plan were formulated in discussion with me at the time of the visit and I agree with them as documented. * Rob Guzman MD - 10/06/2024 5:27 PM EST [facility] [place] NEUROSURGERY PROGRESS NOTE ID: Lucero Bruno 74 y.o. female : 1950 LOS: 20 Neurosurgical Procedures this Admission: 09/16/24, Dr. Espinal: R craniotomy for IPH evacuation INTERVAL Hx: -Neurostable. Wound cdi MEDICATIONS: Scheduled Meds: free water 30 mL FEEDING TUBE Q4H CARLY protein powder 2 Scoop Per G Tube TID amLODIPine 5 mg Per G Tube Daily dilTIAZem 90 mg Per G Tube Q6H CARLY multivitamin with minerals 1 tablet Per G Tube Daily pantoprazole 40 mg Intravenous Daily enoxaparin 40 mg Subcutaneous Nightly insulin lispro 0-3 Units Subcutaneous Q4H CARLY ipratropium-albuteroL 3 mL Nebulization Q4H insulin lispro 2-12 Units Subcutaneous Q4H CARLY Continuous Infusions: Diet Tube Feed: Nutren 1.5 (standard, energy-dense) (1.5 kcal/mL) Stopped (10/06/24 1655) PRN: acetaminophen, 975 mg, Q6H PRN docusate sodium, 100 mg, BID PRN And sennosides, 17.6 mg, BID PRN polyethylene glycoL (MIRALAX) oral powder, 17 g, Daily PRN potassium chloride ER, 40 mEq, Q4H PRN Or potassium chloride ER, 20 mEq, Q4H PRN iohexoL, 0-200 mL, Once PRN glucose 40% oral geL, 15-30 g of glucose, Q15 Min PRN Or dextrose, 25 g, Q15 Min PRN Or glucagon, 1 mg, Q15 Min PRN ondansetron, 4 mg, Q8H PRN labetaloL, 20 mg, Q4H PRN sodium chloride, 4 mL, Q6H PRN bisacodyL, 10 mg, Daily PRN EXAM: Temp: [36.7 ??C (98.1 ??F)-37.1 ??C (98.8 ??F)] Heart Rate: [73-103] Resp: [16-26] BP: (95-163)/(44-104) SpO2: [93 %-98 %] Heart Rate from SpO2: [73 bpm-103 bpm] I/O: Intake/Output Summary (Last 24 hours) at 10/06/2024 1727 Last data filed at 10/06/2024 1626 Gross per 24 hour Intake 1800 ml Output 1790 ml Net 10 ml Drains: AUBREY out 09/21 GEN: awake and alert this am NEURO: A/ox3 to yes/no questions R pupil 3mm, reactive L pupil 4mm R gaze preference, does not come to midline MOTOR: RUE: FC, thumbs up LUE: withdraws to noxious stimuli RLE: FC, wiggles toes LLE: flicker wiggles toes to command L hemianesthesia Incision CDI, stacey out AUBREY site negative for drainage. Dressing dry. LABS: Recent Labs 10/06/24 0033 10/05/24 0008 10/04/24 0029 WBC 16.59* 13.56* 14.67* HGB 10.8* 10.8* 10.4* PLATELET 237 241 303 Recent Labs 10/06/24 0033 10/05/24 0008 10/04/24 0029 NA 138 139 142 K 4.3 4.2 4.1 CL 101 103 106 CO2 26 29 26 BUN 21* 24* 24* CREATININE 0.45* 0.36* 0.36* No results for input(s): PT, INR in the last 72 hours. IMAGING: Results for orders placed or performed during the hospital encounter of 09/16/24 CT Head wo Contrast (Generic) (Exam End: 09/16/2024 5:26 PM) Result Value WORKSTATION ID [id number] Impression Interval expansion of now large right-sided temporal occipital intraparenchymal hemorrhage with significant mass effect resulting in 1 cm leftward midline shift. Per chart review, this patient was seen by neurosurgery and taken emergently to the OR. I have personally reviewed the image(s) and the resident's interpretation and agree with the findings, Lana Reinoso at 09/16/2024 6:01 PM Thank you for letting us participate in the care of this patient. If you are a health care provider and have any questions regarding this report, please contact the number below. For patients who have questions please contact the health ocular care technician that requested your imaging first. Electronically signed by: Lana Palifka, [facility] ([phone]), at 09/16/2024 6:[address] Head wo Contrast (Generic) (Exam End: 09/16/2024 11:21 PM) Result Value WORKSTATION ID [id number] Impression CT head: 1. Interval craniotomy with residual or recurrent hemorrhage right temporal and parietal lobe. 2. New hemorrhage right [...] in the care of this patient. If you are a health care provider and have any questions regarding this report, please contact the number below. For patients who have questions please contact the health ocular care technician that requested your imaging first. Electronically signed by: Armando Pan MD, [facility] ([phone]), at 09/17/2024 1:[address] Venogram Brain (Exam End: 09/16/2024 11:21 PM) Result Value WORKSTATION ID [id number] Impression CT head: 1. Interval craniotomy with residual or recurrent hemorrhage right temporal and parietal lobe. 2. New hemorrhage right [...] in the care of this patient. If you are a health care provider and have any questions regarding this report, please contact the number below. For patients who have questions please contact the health ocular care technician that requested your imaging first. Electronically signed by: Armando Pan MD, [facility] ([phone]), at 09/17/2024 1:42 AM XR Chest One View (Exam End: 09/16/2024 11:00 PM) Result Value WORKSTATION ID [id number] Impression Satisfactorily positioned enteric and endotracheal tubes. Left lower lobe atelectasis versus pneumonia. Thank you for letting us participate in the care of this patient. If you are a health care provider and have any questions regarding this report, please contact the number below. For patients who have questions please contact the health ocular care technician that requested your imaging first. Electronically signed by: Pamela Beard MD, [facility] ([phone]), at 09/17/2024 12:09 AM XR Abdomen 1 view (Generic) (Exam End: 09/16/2024 11:00 PM) Result Value WORKSTATION ID [id number] Impression Satisfactorily positioned enteric and endotracheal tubes. Left lower lobe atelectasis versus pneumonia. Thank you for letting us participate in the care of this patient. If you are a health care provider and have any questions regarding this report, please contact the number below. For patients who have questions please contact the health ocular care technician that requested your imaging first. Electronically signed by: Pamela Beard MD, [facility] ([phone]), at 09/17/2024 12:[address] Head wo Contrast (Generic) (Exam End: 09/17/2024 4:51 AM) Result Value WORKSTATION ID [id number] Impression Increased size and density of dominant right parietal hematoma, and of hemorrhage extending medially into the basal ganglia. Foci of thalamocapsular hemorrhage on the right are stable. No evidence of progressive intraventricular hemorrhage or ventricular dilation. No definitive increase in leftward midline shift or herniation. Thank you for letting us participate in the care of this patient. If you are a health care provider and have any questions regarding this report, please contact the number below. For patients who have questions please contact the health ocular care technician that requested your imaging first. Electronically signed by: Elvin Bolden DO, [facility] ([phone]), at 09/17/2024 8:38 AM XR Chest One View (Exam End: 09/17/2024 2:13 PM) Result Value WORKSTATION ID [id number] Impression 1. No focal opacity in lung 2. Pulmonary edema, progressed since last examination. 3. Tip of ET tube is 23 mm superior cuff to jonathan. Consider adjustment. 4. Sidehole and tip of NG tube is below the diaphragm. Thank you for letting us participate in the care of this patient. If you are a health care provider and have any questions regarding this report, please contact the number below. For patients who have questions please contact the health ocular care technician that requested your imaging first. Electronically signed by: Zoey Zabala MD, [facility] ([phone]), at 09/17/2024 2:43 PM XR Chest One View (Exam End: 09/18/2024 8:43 AM) Result Value WORKSTATION ID [id number] Impression Tubes and lines as described. Blunting of the left costophrenic angle suggests tiny layering left effusion with associated left basilar consolidation/atelectasis Thank you for letting us participate in the care of this patient. If you are a health care provider and have any questions regarding this report, please contact the number below. For patients who have questions please contact the health ocular care technician that requested your imaging first. Abdomen 1 view (Generic) (Exam End: 09/18/2024 12:31 PM) Result Value WORKSTATION ID [id number] Impression Dobbhoff tube tip along the greater curve of the stomach. Thank you for letting us participate in the care of this patient. If you are a health care provider and have any questions regarding this report, please contact the number below. For patients who have questions please contact the health ocular care technician that requested your imaging first. Brain wwo Contrast (Generic) (Exam End: 09/19/2024 5:43 PM) Result Value WORKSTATION ID [id number] Impression Unchanged size of large right cerebral hemisphere ICH status post partial evacuation. Numerous small foci of decreased acute infarction both along and separate from the site of hemorrhage. These foci are present in both cerebral hemispheres and have a pattern most consistent with embolic infarction. No evidence of AUTOMOBILE DESIGNER malignancy Thank you for letting us participate in the care of this patient. If you are a health care provider and have any questions regarding this report, please contact the number below. For patients who have questions please contact the health ocular care technician that requested your imaging first. Electronically signed by: Rios Swartz MD, [facility] ([phone]), at 09/20/2024 8:[address] Head wo Contrast (Generic) (Exam End: 09/21/2024 3:50 AM) Result Value WORKSTATION ID [id number] Impression Stable hemorrhage right temporal, parietal, right posterior limb internal capsule and right thalamus. Mild progression of vasogenic edema adjacent to hemorrhage. Similar pattern and extent of local and generalized mass effect with stable subfalcine herniation and uncal herniation. Thank you for letting us participate in the care of this patient. If you are a health care provider and have any questions regarding this report, please contact the number below. For patients who have questions please contact the health ocular care technician that requested your imaging first. Electronically signed by: Armando Pan MD, [facility] ([phone]), at 09/21/2024 4:55 AM XR Abdomen 1 view (Generic) (Exam End: 09/21/2024 2:01 PM) Result Value WORKSTATION ID [id number] Impression Dobbhoff tube and enteric tube sidehole and tip is projecting over the expected location of the stomach. I have personally reviewed the image(s) and the resident's interpretation and agree with the findings, Shraddha Cox MD at 09/21/2024 3:40 PM Thank you for letting us participate in the care of this patient. If you are a health care provider and have any questions regarding this report, please contact the number below. For patients who have questions please contact the health ocular care technician that requested your imaging first. Electronically signed by: Shraddha Cox MD, [facility] ([phone]), at 09/21/2024 3:40 PM XR Chest One View (Exam End: 09/21/2024 2:01 PM) Result Value WORKSTATION ID [id number] Impression ET tube with tip projecting approximately 1.4 cm above the jonathan. Recommend retracting approximately 2 cm and follow-up imaging. New left basilar atelectasis and/or small pleural effusion. Aspiration or pneumonia could also this appearance. I Sacha Shipley MD discussed the results (Impression #1) with Bonnie Vazquez on 09/21/2024 4:42 PM and verified that the results were understood. I have personally reviewed the image(s) and the resident's interpretation and agree with the findings, Octavio Scott MD at 09/21/2024 5:09 PM Thank you for letting us participate in the care of this patient. If you are a health care provider and have any questions regarding this report, please contact the number below. For patients who have questions please contact the health ocular care technician that requested your imaging first. Electronically signed by: Octavio Scott MD, [facility] ([phone]), at 09/21/2024 5:[address] Head wo Contrast (Generic) (Exam End: 09/22/2024 4:02 AM) Result Value WORKSTATION ID [id number] Impression Stable head CT status post removal of subcutaneous drain. No new or enlarging hemorrhage. Stable pattern of mass effect Thank you for letting us participate in the care of this patient. If you are a health care provider and have any questions regarding this report, please contact the number below. For patients who have questions please contact the health ocular care technician that requested your imaging first. Electronically signed by: Armando Pan MD, [facility] ([phone]), at 09/22/2024 4:[address] Angiogram Chest for Pulmonary Embolus w Contrast (Exam End: 09/26/2024 1:37 PM) Result Value WORKSTATION ID [id number] Impression 1. No pulmonary embolism. 2. Pulmonary edema. 3. Bibasilar atelectasis. Superimposed patchy airspace opacity in the left lower lobe may represent atelectasis versus pneumonia. 4. Mild emphysema. 5. Mild cardiomegaly. Left atrial appendage occlusion device in situ. Mild multifocal coronary atherosclerosis. Correlation with echocardiography may be of benefit. 6. Unexpected Findin mm indeterminant left adrenal nodule. Per ACR white paper guidelines, follow-up CT of the Abdomen (Adrenal protocol - without and with intravenous contrast) is recommended in one year. 7. Mild sigmoid diverticulosis coli without secondary signs of acute diverticulitis. 8. Interval development of anasarca, which may be related to hypervolemia, hypoproteinemia, or combination thereof. 9. Endotracheal catheter in situ with tip 4 mm above the jonathan. Recommend retraction. 10. Enteric catheter in situ with tip terminating in the gastric pylorus. 11. Hill catheter in situ. Persistent distention of the urinary bladder. Correlation with catheter functionality is recommended. 12. Rectal catheter in situ. Thank you for letting us participate in the care of this patient. If you are a health care provider and have any questions regarding this report, please contact the number below. For patients who have questions please contact the health ocular care technician that requested your imaging first. Electronically signed by: Marvin Decker DO, [facility] ([phone]), at 09/26/2024 1:[address] Head wo Contrast (Generic) (Exam End: 09/26/2024 1:37 PM) Result Value WORKSTATION ID [id number] Impression 1. Stable right-sided parenchymal and subdural hemorrhages, associated mass effect and midline shift. 2. Stable left intraventricular hemorrhage. 3. No new or enlarging hemorrhages or extra-axial collections. Thank you for letting us participate in the care of this patient. If you are a health care provider and have any questions regarding this report, please contact the number below. For patients who have questions please contact the health ocular care technician that requested your imaging first. Electronically signed by: Smiley Cordova MD, [facility] ([phone]), at 09/26/2024 2:[address] Abdomen & Pelvis w Contrast (Exam End: 09/26/2024 1:37 PM) Result Value WORKSTATION ID [id number] Impression 1. No pulmonary embolism. 2. Pulmonary edema. 3. Bibasilar atelectasis. Superimposed patchy airspace opacity in the left lower lobe may represent atelectasis versus pneumonia. 4. Mild emphysema. 5. Mild cardiomegaly. Left atrial appendage occlusion device in situ. Mild multifocal coronary atherosclerosis. Correlation with echocardiography may be of benefit. 6. Unexpected Findin mm indeterminant left adrenal nodule. Per ACR white paper guidelines, follow-up CT of the Abdomen (Adrenal protocol - without and with intravenous contrast) is recommended in one year. 7. Mild sigmoid diverticulosis coli without secondary signs of acute diverticulitis. 8. Interval development of anasarca, which may be related to hypervolemia, hypoproteinemia, or combination thereof. 9. Endotracheal catheter in situ with tip 4 mm above the jonathan. Recommend retraction. 10. Enteric catheter in situ with tip terminating in the gastric pylorus. 11. Hill catheter in situ. Persistent distention of the urinary bladder. Correlation with catheter functionality is recommended. 12. Rectal catheter in situ. Thank you for letting us participate in the care of this patient. If you are a health care provider and have any questions regarding this report, please contact the number below. For patients who have questions please contact the health ocular care technician that requested your imaging first. Electronically signed by: Marvin Decker DO [facility] ([phone]), at 09/26/2024 1:54 PM XR Chest One View (Exam End: 09/28/2024 4:06 AM) Result Value WORKSTATION ID [id number] Impression 1. Limited examination. 2. Interval removal of the endotracheal catheter. 3. Stable position of other medical hardware. 4. Decreased but persistent patchy left retrocardiac airspace opacity, may be resolving atelectasis or pneumonia. Thank you for letting us participate in the care of this patient. If you are a health care provider and have any questions regarding this report, please contact the number below. For patients who have questions please contact the health ocular care technician that requested your imaging first. Electronically signed by: Marvin Decker DO [facility] ([phone]), at 09/28/2024 4:12 AM XR Chest One View (Exam End: 09/28/2024 7:58 PM) Result Value WORKSTATION ID [id number] Impression 1. Slightly increased opacity in the left lower lung which may be due to atelectasis, aspiration or pneumonia. 2. Small bilateral pleural effusions. Thank you for letting us participate in the care of this patient. If you are a health care provider and have any questions regarding this report, please contact the number below. For patients who have questions please contact the health ocular care technician that requested your imaging first. Electronically signed by: Sammy Story MD, [facility] ([phone]), at 09/28/2024 8:09 PM XR Chest One View (Exam End: 09/29/2024 1:13 PM) Result Value WORKSTATION ID [id number] Impression 1. Limited examination. 2. Stable position of medical hardware. 3. The lung volumes are decreased, which accentuates the pulmonary vascular markings and cardiac silhouette. 4. Accounting for this, a stable mild component of congestive heart failure / fluid overload is suspected. 5. Stable moderate cardiomegaly. 6. Possible inferior subluxation of the left humerus. Correlation with patient symptomatology is recommended. If clinically indicated, further evaluation with dedicated left shoulder radiographs can be obtained. Thank you for letting us participate in the care of this patient. If you are a health care provider and have any questions regarding this report, please contact the number below. For patients who have questions please contact the health ocular care technician that requested your imaging first. Electronically signed by: Marvin Decker DO, [facility] ([phone]), at 09/30/2024 12:[address] Head wo Contrast (Generic) (Exam End: 10/04/2024 1:40 AM) Result Value WORKSTATION ID [id number] Impression 1. Overall interval improvement of the mass effect on the right hemisphere with evolution of blood products within the parenchyma post craniotomy. 2. Mild interval increase in extra-axial fluid inferior margin of the craniotomy. 3. Mild interval increase in size of third and lateral ventricles as well as peripheral CSF spaces 4. No new hemorrhage or infarction Thank you for letting us participate in the care of this patient. If you are a health care provider and have any questions regarding this report, please contact the number below. For patients who have questions please contact the health ocular care technician that requested your imaging first. Electronically signed by: Armando Pan MD, [facility] ([phone]), at 10/04/2024 2:12 AM MRI Brain wwo Contrast (Generic) (Exam End: 10/04/2024 10:30 PM) Result Value WORKSTATION ID [id number] Impression 1. Fluid collections in the right parietal lobe now showing some restricted diffusion, question abscess formation or hemorrhage. Fluid in the collections projecting deep to the craniotomy and at the margin of the craniotomy with restricted diffusion suggesting abscess formation or hemorrhage. 2. Fluid collections in the extra-axial space and adjacent to the craniotomy. These do not appear to demonstrate restricted diffusion and may represent a meningocele formation. 3. Interval decrease in mass effect compared to MRI of 09/19/2024. Thank you for letting us participate in the care of this patient. If you are a health care provider and have any questions regarding this report, please contact the number below. For patients who have questions please contact the health ocular care technician that requested your imaging first. Electronically signed by: Armando Pan MD, [facility] ([phone]), at 10/05/2024 12:31 AM XR Chest One View (Exam End: 10/06/2024 10:59 AM) Result Value WORKSTATION ID [id number] Impression Improved but persistent retrocardiac patchy opacity which is favored to represent atelectasis although underlying acute infectious/inflammatory process cannot be excluded. I have personally reviewed the image(s) and the resident's interpretation and agree with the findings, MICHELLE ARSHAD MD at 10/06/2024 3:00 PM Thank you for letting us participate in the care of this patient. If you are a health care provider and have any questions regarding this report, please contact the number below. For patients who have questions please contact the health ocular care technician that requested your imaging first. Electronically signed by: MICHELLE ARSHAD MD, [facility] ([phone]), at 10/06/2024 3:00 PM Assessment: 74 y.o. female with PMHx notable for Afib (taking ASA, previously on apixaban-stopped taking after IPH in April 2024), CHRISTOPHER, HLD, BMI of 36, prior IPH 04/2024 who presented to hospital 09/16/24 for placement of Watchman with cardiology. She developed headaches and nausea post op and CT scan noted large R [id number] IPH. Now s/p R craniotomy for IPH evacuation. Repeated CTH wo contrast post-op overnight into 09/17 showing increased hemorrhage on R but exam remains stable. Will defer further neurosurgical intervention at this time and continue to closely monitor exam. 09/18 AM noted L eye down, possible out. MRI Brain wwo on 09/19 showing small scattered infarcts c/w embolic infarcts not that would explain possible palsy. 10/04, new drainage noted to pillow with AUBREY site expressing SS fluid. No fevers or concerning WBC. HCT with small fluid collection. Pending PEG placement. Plan: -MRI Brain wwo - hematoma vs abscess per radiology. Clinical findings and imaging review favors evolving hematoma. -Will s/o -Rest of care per primary -f/u in 1 mos w/ CTH in clinic with JESSI For questions please call NSGY pager [phone] Rob Guzman MD Clinical Documentation Improvement: Active Hospital Problems Diagnosis Right occipital hemorrhage with associated vassogenic edema, anticoagulation associated, probableCAA Severe protein-calorie malnutrition Presence of Watchman left atrial appendage closure device S/P craniotomy Resolved Hospital Problems No resolved problems to display. * Kymberly Baptiste, PT - 10/06/2024 2:25 PM EST Physical Therapy Note Treatment Number PT: 6 Patient profile: Lucero Bruno ( ) is a 74 y.o. 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 Interval History: per nsgy note Neurostable ON. Following commands. Oriented x 3 with yes/no questions. Wound is nonerythematous, no drainage. AF. WBC trending down in setting of pneumonia. Social History: per previous hospitalization 04/2024 Patient reports she lives alone with her two cats in a 2 level home with a basement. Patient reports her needs are met on the main level, including laundry. Her bathroom includes a tub shower with grab bars. Residence has 2 small ZAIN. At her baseline, patient is independent in all aspects. 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 Patient reports she enjoys her 1/2 acre of flower beds. Falls: None Precautions/Special Considerations: at risk to fall, SBP 90-160, MAP>65 Lines: PIV, tele, hill catheter, PEG Activity Orders: AAT Diet: NPO Mobility and Positioning Recommendations: Pt to utilize [facility] lift for transfers with nursing. Please encourage up to chair for meal times as able. Subjective: Kymberly and Lemon improved volume of voice today but fatigues quickly Objective: Patient seen for physical therapy and demonstrated the following: Pain: Epigastric pain and back pain with mobility, did not rate. RN aware of epigastric pain Vital Signs: Stable throughout on RA Cognition/Vision: alert, follows commands in RUE/RLE, answers yes/no with gestures, able to speak more (louder and clearer), but fatigues quickly. Bed Mobility: Supine to Sit: max assist x2 with HOB elevated Sit to Supine: max assist x2 Transfers: Sit to Stand: attempted x2 with RUE support, max assist x2, L knee block. Unable to clear buttocks on both attempts. Stand to Sit: NA Bed to Chair: NA Gait: NA Stairs: NA Balance: Sitting Static: poor, requires min-mod assist, impaired righting reactions, significant forward lean and mild pushing towards L, poor head/neck control. Tolerated increased time at EOB today Sitting Dynamic: poor Standing Static: NA Standing Dynamic / Gait: NA Education: Pt educated on bed mobility, transfers, seated balance, role of therapy, and importance of mobility. She will require ongoing reinforcement. Pt left supine in bed, with all needs met, and with call ruiz in reach following visit. Assessment: Lucero Bruno was seen today for physical therapy treatment session for continuation of POC. Pt was pleasant and agreeable to participate in sit<>stand attempts today. She was profoundly limited by L sided weakness, impaired balance, poor posture, and low activity tolerance. Pt is highly motivated and engaged in therapy, and would benefit from d/c to SNF for continued therapy services. Pt will benefit from ongoing therapeutic interventions to achieve therapy goals. Discharge Recommendations: Based on the current findings, Anticipated Discharge Disposition (PT): jail facility when medically ready for hospital discharge. Discharge recommendation is based on the patient's current physical impairments, prior functional status, potential to return to prior level of function, patient motivation, reported home support, potential for functional gains, current level of endurance, reported home environment and anticipated trajectory of progress and may change based on patient progress during this hospitalization. Consult Recommendations: No other consults recommended at this time. Equipment needs: Anticipated Equipment Needs at Discharge (PT): to be determined Goals: To be achieved by 10/13/24: ONGOING Pt. to demonstrate knowledge of safety limitations and precautions and will appropriately request assistance for functional activities and to mobilize. Pt. to perform bed mobility with mod A. Pt will maintain seated balance at EOB with min A x5 mins. Pt. Will tolerate mech lift OOB to recliner chair. Family or caregiver to demonstrate understanding of therapeutic interventions to support the care of the patient. Pt will tolerate progression towards upright with stable vital signs. Plan: Therapy Frequency (PT): 2-3 times/wk for therapy interventions as outlined in initial evaluation. Patient agrees with plan as stated. Time IN / OUT: 2523-8526 Total Minutes, Physical Therapy: 22 Billing Code: TEF1 Kymberly Baptiste PT, DPT, NCS Pager: [phone] Physical Therapy Inpatient Rehabilitation Department * Diana Lucas, OT - 10/06/2024 1:28 PM EST Occupational Therapy Treatment Note Treatment Number OT: 5 Patient Dx:Lucero Bruno is a 74 y.o. female admitted on 09/16/2024. 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 Presents to OT for evaluation of functional activity. Social History: per chart review Home Setup: Pt lives in a multi story home with all needs met on one level. Pt has a tub shower with grab bars. Social support: Pt lives alone. Pt has a significant other and a son in the area. Pt lives with her two cats Jose A and Neri DUMONT: Cane Tub grab bar Baseline ADL/Mobility: Pt was independent at baseline with use of cane. 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 Pt has a 1/2 acre of flower beds. Precautions/Special Considerations: Falls, supplemental O2 via NC, NPO, NGT, hill, AAT, SBP 90-160, full code Patient Lines/Drains/Airways Status Active Tubes/Lines/Drains Name Placement date Placement time Site Days PIV 10/06/24 1416 22 gauge;1.75 in length median vein (underside of arm), right 10/06/24 1416 -- less than 1 Enterostomy Tube 10/04/24 1236 gastrostomy tube with balloon midline 10/04/24 1236 -- 2 Urethral Catheter 10/02/24 031 14 10/02/24 031 -- 4 Activity Orders: Activity Orders (From admission to next 72h) Start Ordered Unscheduled Activity as tolerated PRN 09/16/242204 Unscheduled Up with assistance PRN 09/16/242204 S: Pt received in bed with boyfriend present. Pt agreeable to OT treatment session this date. Pt A&Ox3 on RA, and VSS. My honeybunny O: Patient seen for skilled OT treatment, and demonstrated the following: Self-care/Functional Mobility: Don sling max A Don socks max A Supine>sit max A x2 Sit EOB mod A (anterior and L lean) Sit<>stand max A x2 did not clear bed used RUE pulling from rail in front Washed face: set up A Gave hug to partner Sit>supine max A x2 Cognition: Behavior / Mood: alert, cooperative, and impaired task initiation Alert and oriented to: person, place, month, year, day of week, and situation Follows commands: 1 step and 2 step Attention: difficulty attending to task/directions Safety awareness: decreased insight into deficits Vision: R gaze preference L inattention Communication Thumbs up vs down Nod yes/no gestures Speaking- Hypophonic Endurance/Vitals: Pt on RA, reports no dizziness, lightheadedness, and VSS SpO2 HR BP Pre-activity 98% 92bpm 122/104(113) After Activity 93% 93bpm 130/58(74) Strength/ROM: Cervical ROM:decreased L RUE elbow/hand full ROM, RUE shoulder flexion AAROM LUE full PROM, no AROM, subluxed shoulder, edema in hand, positioned on pillow, OT issued sling Pain: endorsed pain in LUE shoulder Education: Pt education ongoing regarding: Role of Occupational Therapy, Reorientation, Range of motion , Exercises , Activity tolerance, Positioning, Safety during ADL's and functional mobility , Alternating rest/activity , Increased participation in self-care and ADL's within hospital environment, Use of AE, DME recommendations , L inattention , and Goals Staff Communication: Handoff given to RN including pt's location, pain, and pertinent information at cessation of session. ASSESSMENT: Pt seen for OT treatment session this date to progress ADL tasks and OOB activity. Pt fatigued this date and only tolerated ~15 minutes of EOB sitting and attempt to stand, was up in chair this morning. Pt declined ADL tasks other than washing face. Pt and her SO educated again on use of sling during activities. Pt will benefit from ongoing therapeutic interventions to achieve pt's and therapy goals Anticipated Discharge Disposition (OT): [facility] facility Equipment Recommendations: Equipment Needs Upon Discharge (OT): to be determined Daily schedule / Staff Recommendations: EPM Level 2: Bed-Chair position, Mechanically lift to chair, Participate in self care Utilize upright chair position using bed features or transfer to recliner chair as appropriate withlift Frequent orientation verbally & visually with calendars/clocks/whiteboard Facilitate a normal sleep-wake cycle (minimize nighttime distractions when possible, lights on/shades up during the day) Provide brief, clear instructions and directions from one source at a time Reduce extraneous stimulation Encourage use of coping & calming strategies Support LUE on pillow of in sling Occupational Therapy Goals: To be achieved by 10/21/24. Pt will be consistently A&Ox4 and CAM (-) Pt will complete UBD with min A using compensatory strategies/LRAD prn. Pt will complete UB bathing with min A using compensatory strategies/LRAD prn. Pt will complete 2-3 grooming tasks at in supported sitting with set up A. Pt will complete BUE HEP to improve functional use of ADLs Therapy Frequency (OT): 2-3 times/wk Total Minutes, Occupational Therapy: 26 Diana Lucas, OTR/L They/Them Occupational Therapy Rehabilitation Department Pager # [phone] * Areli Hathaway SLP - 10/06/2024 9:21 AM EST Speech Therapy Note Patient Profile: Lucero Bruno is a 74 y.o. female with PMHx of A-fib, CHRISTOPHER, HLD, and prior IPH (04/2024) who presented to [facility] on 09/16/2024 for placement of Watchman with cardiology. She developed headaches and nausea post-operatively and was found to have a large R [id number] IPH, now s/p craniotomy. Patient was intubated from 09/16-09/21 with extubation complicated by stridor requiring re-intubation from 09/21-09/26 (11 days total). [facility] [facility] has been following since 09/27 for communication and dysphagia management. Interval History: No acute events Recent Imaging: No new imaging on file. Subjective: Patient was pleasant and engaged with care. She expressed strong motivation to continueworking with therapy and get out of here. Session was interrupted partway through by chocolate ice cream leaking out of patient's G- tube; later resolved and resumed. Objective: Patient seen for dysphagia management and demonstrated the following: Pain: Denies Respiratory Status: Room air, satting 97% Current Diet: NPO diet (Give Meds) Feeding / Oral Care Status: Patient requires cues and/or assistance due to significant motor limitations; able to accept and bring a swab or spoon to her mouth with infrequent verbal cues (overshootsto L) Cognitive-Linguistic Status: A&Ox4 Good focused attention Responding to questions appropriately using a combination of head nods, hand gestures, and/or shortutterances (1-4 words) Writing is reasonably intelligible at the sentence level; able to independently request clipboard Command Following: Follows multi-step commands within motor constraints Positioning: OOB in chair Oral Motor Examination: WFL Impaired Comments STRUCTURES Facial Symmetry X Left facial droop Lips X Reduced retraction on L, improving on R Tongue X Deviates L on protrusion; ROM, agility, and coordination improving though still impaired Jaw X Palate/Velum X Dentition X Missing right upper teeth and multiple others; visible decay OTHER Phonation X Gravelly, strained, hypophonic Intelligibility X Approximately 75% at the word level; most impacted by strain and articulatory imprecision Volitional Cough X Reduced but gradually improving Sensation X Suspect L sensory impairment vs. inattention, improving Secretion Management X Bolus Presentation(s): Tested Comments Thin liquids [place] thick liquids Honey thick liquids Pureed solids Dysphagia soft Mechanical soft Regular solids Pills Other X Ice cream Oral Preparatory Phase Mastication: N/A Oral transit: Lingual movement is sluggish but subjectively less effortful than previous Bolus cohesion: Suspect reduced due to decreased lingual control Oral containment: Reduced labial seal with intermittent left-sided anterior loss Oral stasis: None after double swallow Pharyngeal Phase Swallow initiation: Present, swallows 2x/bite with variable timeliness Vocal quality change: None Cough / throat clear: Delayed cough following approximately 20% of trials Pt complaint of food getting stuck: None with limited volumes and consistencies Fatigue across trials: None with slow rate Respiratory rate and respiratory swallow pattern: Unlabored and coordinated Esophageal Observations No overt signs of esophageal dysphagia were noted Compensatory Techniques: Extended time, physical assistance (clinician held cup and patient held spoon) Education: Patient educated on results and recommendations, and verbalized understanding. Discussedoptions for an instrumental swallow evaluation (MBS vs. FEES) and patient verbalized understanding.She did not have a preference between the two assessments. Patient status and swallow recommendations were discussed with nursing. Assessment: Aubree was seen today for communication and dysphagia management. She demonstrated ongoing improvements in orofacial range of motion and coordination, and phonatory abilities. Aubree's voice was gravelly and strained and her speech was slow and effortful. However, when asked, Aubree endorsed improved control of her lips, tongue, and voice compared to previous sessions. These changes positively impacted Aubree's oral manipulation of small amounts of PO. Her oral phase was sluggish but subjectively more efficient compared to previous observations. She presented with overt signs of aspiration in approximately 20% of trials. uAbree will benefit from ongoing swallow stimulation. Please provide single ice chips between [employer] sessions when she is alert and accepting. We will continue to follow for serial reassessment, including MBS vs. FEES depending on radiologist availability. Diagnosis: Oral and suspected pharyngeal dysphagia 2/2 IPH (improving), dysphonia 2/2 IPH vs. 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 It is based on evidence indicating that aspiration of small amounts of water is a benign event - unlike juice, soda or coffee, water has a neutral pH level. Therefore, it is well tolerated by the lungs and is quickly absorbed into the bloodstream. Guidelines: Ensure patient is alert, awake, and stable from a respiratory standpoint. Ensure patient is sitting upright. Provide frequent and thorough oral care. Oral care must be provided before giving ice chips Patient may have ice chips following oral care: Provide small single ice chips, one at a time. Allow adequate time after each ice chip for patient to cough or clear their throat if needed. Provide no more than a few (~1-5) ice chips in one sitting. Stop giving ice chips if patient fatigues or becomes uncomfortable. PO Medications: IV or other alternative means only Aspiration Precautions: Sit upright with all PO intake Single ice chips only Patient will require feeding assistance Excellent oral care to reduce risk of aspiration pneumonia Speech Therapy Goals: Pt will tolerate the least restrictive diet without further respiratory decompensation. ONGOING Pt will be independent with aspiration precautions, diet modifications, and safe swallowing strategies. ONGOING Plan: Therapy Frequency ([facility] Eval): 3-5 times/wk Patient is in agreement with the plan of care. Total Minutes (Speech Language Pathology): 35 Areli Hathaway MS, [facility] Speech-Language Pathologist Inpatient Rehabilitation Pager # [phone] * Sol Hazel RD - 10/06/2024 7:27 AM EST Nutrition Progress Note Lucero Bruno is a 74 y.o. female with PMHx RIGHT occipital hemorrhage, chronic a-fib presentedfor watchman procedure. Patient developed headache after procedure and was taken to CT where she was found to have RIGHT IPH with mass effect and midline shift s/p craniotomy. 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 Course complicated by dysphagia requiring PEG tube placement. Interval History No data found. Reason for Assessment: Follow-up, Tube Feeding Nutrition Recommendations: NPO per [employer] 10/05 Continue TF and limit holds as able. Enteral Nutrition: Nutren 1.5 with a goal rate of 40 ml per hour plus 6 scoops protein powder per day. At goal, this will provide: Nutren 1.5 Total Volume Per Day: 960 mL Scoops of Protein: 6 Calories per Day: 1590 Protein per Day: 101 g Free Water mL per Day: 1033 % RDI: 96 % Monitor hydration status on above TFs as they are concentrated. Pt may need additional fluids depending on IVFs, med flushes, etc. Daily BMP w/ mag and phos Monitor lytes - replete as indicated Continue MVI Goal of 1 BM per 24-48 hrs on EN Goal BG <180 Daily Weights Pt meets criteria for severe protein calorie malnutrition as outlined below. Meet the following enteral nutrition (EN) milestones to be nutritionally ready for discharge: [x]Patient is tolerating goal volume and schedule (cycle/bolus) of enteral regimen [x]Electrolytes and blood sugars have been stable x 48 hours with goal regimen [x]Has not required IV fluids for hydration x 48 hours []Patient or capable caregiver has received education regarding home tube feeds []Home enteral regimen has been reviewed for errors and potential barriers to insurance coverage []Identification of a provider to manage enteral nutrition outside of the hospital []Delivery of enteral formula and supplies is scheduled Patient IS NOT nutritionally ready for discharge Details/recommendations for uncompleted steps: feeds not at goal, need for detention nutrition planif unable to advance diet Current Nutrition Regimen: Active Orders Diet NPO diet (Give Meds) Frequency: Effective Now Number of Occurrences: Until Specified All Active TF Orders: Tubefeeding Orders (From admission, onward) Start Dose/Rate Route Frequency Ordered Stop 10/02/24 1130 tube feeding diet 960 mL Per NG tube CONTINUOUS 10/02/24 1037 10/03/24 2359 Average tube feeding provision over past 2 days; 745 mL vs daily goal volume of 960 mL formula (78%of goal); per I/O's. Average protein powder provision over the past 24 hours; 6 scoops vs daily goal of 6 scoops (100% of goal) Tolerance or barriers to meeting needs: holds - NPO for PEG placement 11/11 Assessment: Lab Results Component Value Date NA 138 10/06/2024 NA 141 05/08/2024 K 4.3 10/06/2024 K 4.2 05/08/2024 CL 101 10/06/2024 CL 105 05/08/2024 CO2 26 10/06/2024 CO2 25 05/08/2024 BUN 21 (H) 10/06/2024 BUN 14 05/08/2024 CREATININE 0.45 (L) 10/06/2024 CREATININE 0.68 (L) 05/08/2024 ESTGFR 102 10/06/2024 ESTGFR 92 05/08/2024 MAGNESIUM 0.73 10/06/2024 MAGNESIUM 0.85 05/08/2024 CALCIUM 9.0 10/06/2024 CALCIUM 9.2 05/08/2024 PHOS 2.5 10/06/2024 PHOS 3.1 05/08/2024 AST 28 09/26/2024 AST 15 05/08/2024 ALT 72 (H) 09/26/2024 ALT 14 05/08/2024 ALKPHOS 81 09/26/2024 ALKPHOS 92 05/08/2024 BILITOT 0.4 09/26/2024 BILITOT 0.4 05/08/2024 BILIDIR <0.2 09/26/2024 BILIDIR 0.1 05/08/2024 TRIG 95 09/20/2024 TRIG 101 05/06/2024 CRP 8.6 (H) 10/05/2024 HA1C 6.1 (H) 09/17/2024 HA1C 6.0 (H) 05/06/2024 25OHVITD 38 11/14/2023 Lab Results Component Value Date POCGLU 147 10/06/2024 POCGLU 149 10/06/2024 POCGLU 200 (H) 10/06/2024 POCGLU 129 10/05/2024 POCGLU 185 10/05/2024 POCGLU 137 10/05/2024 POCGLU 160 10/05/2024 Patient Lines/Drains/Airways Status Active Nutritional LDAs Name Placement date Placement time Site Days Enterostomy Tube 10/04/24 1236 gastrostomy tube with balloon midline 10/04/24 1236 -- 2 PIV 10/05/242028 22 gauge;1 in length median vein (underside of arm), right 10/05/242028 -- 1 Urethral Catheter 10/02/24314 14 10/02/24314 -- 4 Oxygen Therapy / Airway Device: Nasal cannula Shift Pressure Injury Prevention Occiput: No Injury Thoracic Spine: No Injury Sacral: Redness, Blanchable Ischial - left: No Injury Ischial - right: No Injury Heel - left: No Injury Heel - right: No Injury Elbow - left: No Injury Elbow - right: No Injury Device Sites: BP Cuff, ECG Leads, hill, IV sites, O2 sat monitor, SCD's / venodynes EEG Skin Appearance: clean, dry, intact Other Sites: CVC Last Bowel Movement: 10/04/24 Intake/Output Summary (Last 24 hours) at 10/06/2024 0727 Last data filed at 10/06/2024 0600 Gross per 24 hour Intake 2120 ml Output 1580 ml Net 540 ml Relevant medications: 30 mL free water bolus q4 hours Lispro Thera M Protonix Zofran PRN Anthropometrics: Admit Weight: 88.45 kg Estimated body mass index is 34.18 kg/m?? as calculated from the following: Height as of 09/21/24: 152.4 cm (5'). Weight as of this encounter: 79.4 kg (175 lb). [place] Body Weight (IBW) (kg): 45.45 Wt Readings from Last 10 Encounters: 10/06/24 79.4 kg (175 lb) 09/21/24 91.3 kg (201 lb 4.5 oz) 09/18/24 91.5 kg (201 lb 11.5 oz) 07/28/24 85.3 kg (188 lb) 05/24/24 81.6 kg (180 lb) 05/08/24 84.1 kg (185 lb 6.4 oz) 05/08/24 82 kg (180 lb 12.4 oz) 04/23/24 83.9 kg (185 lb) 03/03/24 85 kg (187 lb 6.3 oz) 11/14/23 87.2 kg (192 lb 3.2 oz) Patient Vitals for the past 168 hrs: Weight 10/06/24 0551 79.4 kg (175 lb) 10/05/24 0553 79.3 kg (174 lb 12.8 oz) 10/04/24 06 79.3 kg (174 lb 12.8 oz) 10/03/24599 80.5 kg (177 lb 7.5 oz) 10/02/24599 80.7 kg (178 lb) 10/01/24599 85.5 kg (188 lb 7.9 oz) 09/30/24599 84.4 kg (186 lb) Weight Source: Bed Edema per flowsheets Date Grading 10/05 1+ bilateral ankles, 2+ generalized, 2+ left hand 10/03 1+ bilateral ankles, 2+ generalized 10/01 1+ BLE, 2+ LUE Estimated / Assessed Needs: Kcal / K - 1597 Kcal (14 Kcal/Kg - 18 Kcal/Kg) Estimated Protein Needs: 91 g - 114 g (2.0 g/Kg - 2.5 g/Kg IBW) Nutrition intake and intake history / interview: 10/06: [employer] continues to recommend NPO, per note 10/05. Per JAN, TF running at goal. Unable to confirm TF volume provided on pump as history was cleared. Wt appears to be trending down and does not seem related to fluid shifts - likely related to frequent holds preventing full volume of TF being provided. 10/04: TF held at midnight last night for possible PEG placement today. Per chart, pt has lost additional 6.2kg (7.2%) since last nutrition assessment - lasix given on 10/01. LBM 10/03. Potassium and phosphorus now WNL without need for repletion since 10/01. 10/01: TF restarted 09/29 at 1645hr; currently running at 30mL/hr. Pt showing signs of refeeding per 10/01 labs (hypokalemia, hypophosphatemia); KCl repletion noted but . Some high BG noted 09/30 (229, 196, 207, 233); insulin regimen still adjusting for Pep VHP rather than Nutren 1.5, team aware. [employer] continues to recommend NPO per 09/30 note. LBM 09/29, optimize regimen. Per EMR, pt with 4% wt loss in <1 week (196lbs on 09/24 to 188lbs on 09/28) which is clinically significant. Unable to complete full NFPE at this time. Planned for upcoming PEG placement. 09/29: TF Dc'd 09/28 @ 1835hr. [employer] continues to recommend NPO, need for alternate nutrition. Updated TF recs pended as above. Pt now with <50% EER x 5 days, increasing risk for malnutrition. 09/27: TF off. Pressor off. Extubated, not cleared for PO intake. 09/23: TF held for possible extubation today, restarted this afternoon. Reassessed needs, TF recs updated. 09/21: Pt extubated and reintubated today, restarted on propofol. TF held. 09/17: Cx for TF recs. Per chart, wt has been fluctuating 82-89 kg x 10 months. Nutrition Focused Physical Exam: Performed (10/01 by MLS) Subcutaneous Fat Loss Orbital region: None present Upper arm region (triceps/biceps): None present Thoracic and Lumbar regions (ribs, lower back, and maxillary line): Not assessed Lean Muscle Loss [place] region (temporalis muscle): None present Clavicle bone region (pectoralis major): None present Dorsal hand (interosseous muscle): Not assessed (pt unable to engage muscle) Shoulder (deltoid): None present Scapular bone region (latissimus dorsi, trapezius muscles): Not assessed Thigh region (quadriceps muscle): Not assessed Posterior calf region (gastrocnemius muscle): Not assessed Malnutrition Diagnosis: Identified: less than or equal to 50% of estimated energy requirement for greater than or equal to 5 days and greater than 2% weight loss in 1 week is consistent with Severe protein-calorie malnutrition in the setting of acute illness or injury (Mari et al, JPEN J Parenteral Enteral Nutr. 2012 March; 36(3): 273-83) Nutrition to continue to follow up while inpatient TERESA Reyna, ASHLEY, LD Clinical Nutrition * Anitra Ruiz DO - 10/06/2024 6:53 AM EST Images from the original note were not included. VASCULAR NEUROLOGY DAILY PROGRESS NOTE Admit Date 09/16/2024 Responsible Attending: Gissell Velazco MD Primary Provider: Leila Manjarrez [phone] Hospital Day: Hospital Day: 21 Patient ID 74 y.o. female with PMHx RIGHT occipital hemorrhage, chronic a-fib presented for watchman procedure. Patient developed headache after procedure and was taken to CT where she was found to have RIGHT IPH with mass effect and midline shift s/p craniotomy. 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 Course complicated by dysphagia requiring PEG tube placement. 24hr Events: - No changes in medical management yesterday - CHAVEZ CARRASCO - This morning denies any acute concerns or complaints, cranie site without discharge EXAM Last value Range last 24 hrs Temperature Temp: 36.9 ??C (98.4 ??F) Temp: [36.7 ??C (98.1 ??F)-37.1 ??C (98.8 ??F)] Heart Rate Heart Rate: 81 Heart Rate: [72-103] Blood Pressure BP: 120/53 BP: (102-141)/(47-65) Respiratory Rate Resp: 16 Resp: [14-26] SpO2 SpO2: 96 % SpO2: [93 %-99 %] GENERAL - Alert, awake, no verbal output CN - PERRL, right gaze preference, unable to cross midline to left. No blink to threat on left. MOTOR- LUE/LLE 0/5 RUE/RLE able to sustain gravity REFLEX - Babinski elicited strong withdrawal b/l SENSATION - intact sensation on right COORDINATION - FTN intact on RUE GAIT - not assessed DATA I/O last 3 completed shifts: In: 1979 [I.V.:10; NG/GT:1610] Out: 2080 [Urine:2049; Stool:30; Blood:1] Labs Recent Labs 10/06/24 0033 10/05/24 0008 10/04/24 0029 10/03/24 0405 10/02/24 0149 WBC 16.59* 13.56* 14.67* 15.33* 19.16* HGB 10.8* 10.8* 10.4* 10.5* 10.1* HCT 32.9* 33.5* 32.8* 32.4* 31.1* PLATELET 237 241 303 359* 399* NEUTROABS 14.40* 11.69* 12.52* 13.43* 16.45* Recent Labs 10/06/24 0033 10/05/24 0008 10/04/24 0029 10/03/24 0405 10/02/24 0149 NA 138 139 142 146* 146* K 4.3 4.2 4.1 4.0 3.6 CL 101 103 106 108* 108* CO2 26 29 26 30 28 BUN 21* 24* 24* 22* 27* CREATININE 0.45* 0.36* 0.36* 0.35* 0.39* GLUCOSE 211* 136 166 199 123 Recent Labs 10/06/24 0033 10/05/24 0008 10/04/24 0029 CALCIUM 9.0 9.1 8.9 MAGNESIUM 0.73 0.85 0.80 PHOS 2.5 4.1 2.6 Lipid Panel Lab Results Component Value Date CHLPL 203 09/17/2024 CHLPL 135 05/06/2024 HDL 45 09/17/2024 HDL 46 05/06/2024 TRIG 95 09/20/2024 TRIG 101 05/06/2024 LDLCHOL 69 05/06/2024 LDLDIRECT 133 09/17/2024 Lab Results Component Value Date HA1C 6.1 (H) 09/17/2024 Micro: Microbiology Results (last 7 days) Procedure Component Value - Date/Time Blood culture [[id number]] Collected: 09/26/24 1442 Lab Status: Final result Specimen: Blood, Venous Updated: 10/01/24 1602 Blood Culture No growth at 120 hours Blood culture [[id number]] Collected: 09/26/24 1453 Lab Status: Final result Specimen: Blood, Venous Updated: 10/01/24 1602 Blood Culture No growth at 120 hours Imaging/EKG Results for orders placed or performed during the hospital encounter of 09/16/24 CT Head wo Contrast (Generic) (Exam End: 09/16/2024 5:26 PM) Result Value WORKSTATION ID [id number] Impression Interval expansion of now large right-sided temporal occipital intraparenchymal hemorrhage with significant mass effect resulting in 1 cm leftward midline shift. Per chart review, this patient was seen by neurosurgery and taken emergently to the OR. I have personally reviewed the image(s) and the resident's interpretation and agree with the findings, Lana Reinoso at 09/16/2024 6:01 PM Thank you for letting us participate in the care of this patient. If you are a health care provider and have any questions regarding this report, please contact the number below. For patients who have questions please contact the health ocular care technician that requested your imaging first. Electronically signed by: Lana Reinoso, [facility] ([phone]), at 09/16/2024 6:[address] Head wo Contrast (Generic) (Exam End: 09/16/2024 11:21 PM) Result Value WORKSTATION ID [id number] Impression CT head: 1. Interval craniotomy with residual or recurrent hemorrhage right temporal and parietal lobe. 2. New hemorrhage right [...] in the care of this patient. If you are a health care provider and have any questions regarding this report, please contact the number below. For patients who have questions please contact the health ocular care technician that requested your imaging first. Electronically signed by: Armando Pan MD, [facility] ([phone]), at 09/17/2024 1:[address] Venogram Brain (Exam End: 09/16/2024 11:21 PM) Result Value WORKSTATION ID [id number] Impression CT head: 1. Interval craniotomy with residual or recurrent hemorrhage right temporal and parietal lobe. 2. New hemorrhage right [...] in the care of this patient. If you are a health care provider and have any questions regarding this report, please contact the number below. For patients who have questions please contact the health ocular care technician that requested your imaging first. Electronically signed by: Armando Pan MD, [facility] ([phone]), at 09/17/2024 1:42 AM XR Chest One View (Exam End: 09/16/2024 11:00 PM) Result Value WORKSTATION ID [id number] Impression Satisfactorily positioned enteric and endotracheal tubes. Left lower lobe atelectasis versus pneumonia. Thank you for letting us participate in the care of this patient. If you are a health care provider and have any questions regarding this report, please contact the number below. For patients who have questions please contact the health ocular care technician that requested your imaging first. Electronically signed by: Pamela Beard MD, [facility] ([phone]), at 09/17/2024 12:09 AM XR Abdomen 1 view (Generic) (Exam End: 09/16/2024 11:00 PM) Result Value WORKSTATION ID [id number] Impression Satisfactorily positioned enteric and endotracheal tubes. Left lower lobe atelectasis versus pneumonia. Thank you for letting us participate in the care of this patient. If you are a health care provider and have any questions regarding this report, please contact the number below. For patients who have questions please contact the health ocular care technician that requested your imaging first. Electronically signed by: Pamela Beard MD, [facility] ([phone]), at 09/17/2024 12:[address] Head wo Contrast (Generic) (Exam End: 09/17/2024 4:51 AM) Result Value WORKSTATION ID [id number] Impression Increased size and density of dominant right parietal hematoma, and of hemorrhage extending medially into the basal ganglia. Foci of thalamocapsular hemorrhage on the right are stable. No evidence of progressive intraventricular hemorrhage or ventricular dilation. No definitive increase in leftward midline shift or herniation. Thank you for letting us participate in the care of this patient. If you are a health care provider and have any questions regarding this report, please contact the number below. For patients who have questions please contact the health ocular care technician that requested your imaging first. Electronically signed by: Elvin Bolden DO, [facility] ([phone]), at 09/17/2024 8:38 AM XR Chest One View (Exam End: 09/17/2024 2:13 PM) Result Value WORKSTATION ID [id number] Impression 1. No focal opacity in lung 2. Pulmonary edema, progressed since last examination. 3. Tip of ET tube is 23 mm superior cuff to jonathan. Consider adjustment. 4. Sidehole and tip of NG tube is below the diaphragm. Thank you for letting us participate in the care of this patient. If you are a health care provider and have any questions regarding this report, please contact the number below. For patients who have questions please contact the health ocular care technician that requested your imaging first. Electronically signed by: Zoey Zabala MD, [facility] ([phone]), at 09/17/2024 2:43 PM XR Chest One View (Exam End: 09/18/2024 8:43 AM) Result Value WORKSTATION ID [id number] Impression Tubes and lines as described. Blunting of the left costophrenic angle suggests tiny layering left effusion with associated left basilar consolidation/atelectasis Thank you for letting us participate in the care of this patient. If you are a health care provider and have any questions regarding this report, please contact the number below. For patients who have questions please contact the health ocular care technician that requested your imaging first. Abdomen 1 view (Generic) (Exam End: 09/18/2024 12:31 PM) Result Value WORKSTATION ID [id number] Impression Dobbhoff tube tip along the greater curve of the stomach. Thank you for letting us participate in the care of this patient. If you are a health care provider and have any questions regarding this report, please contact the number below. For patients who have questions please contact the health ocular care technician that requested your imaging first. Brain wwo Contrast (Generic) (Exam End: 09/19/2024 5:43 PM) Result Value WORKSTATION ID [id number] Impression Unchanged size of large right cerebral hemisphere ICH status post partial evacuation. Numerous small foci of decreased acute infarction both along and separate from the site of hemorrhage. These foci are present in both cerebral hemispheres and have a pattern most consistent with embolic infarction. No evidence of [employer] malignancy Thank you for letting us participate in the care of this patient. If you are a health care provider and have any questions regarding this report, please contact the number below. For patients who have questions please contact the health ocular care technician that requested your imaging first. Electronically signed by: Rios Swartz MD, [facility] ([phone]), at 09/20/2024 8:[address] Head wo Contrast (Generic) (Exam End: 09/21/2024 3:50 AM) Result Value WORKSTATION ID [id number] Impression Stable hemorrhage right temporal, parietal, right posterior limb internal capsule and right thalamus. Mild progression of vasogenic edema adjacent to hemorrhage. Similar pattern and extent of local and generalized mass effect with stable subfalcine herniation and uncal herniation. Thank you for letting us participate in the care of this patient. If you are a health care provider and have any questions regarding this report, please contact the number below. For patients who have questions please contact the health ocular care technician that requested your imaging first. Electronically signed by: Armando Pan MD, [facility] ([phone]), at 09/21/2024 4:55 AM XR Abdomen 1 view (Generic) (Exam End: 09/21/2024 2:01 PM) Result Value WORKSTATION ID [id number] Impression Dobbhoff tube and enteric tube sidehole and tip is projecting over the expected location of the stomach. I have personally reviewed the image(s) and the resident's interpretation and agree with the findings, Shraddha Cox MD at 09/21/2024 3:40 PM Thank you for letting us participate in the care of this patient. If you are a health care provider and have any questions regarding this report, please contact the number below. For patients who have questions please contact the health ocular care technician that requested your imaging first. Electronically signed by: Shraddha Cox MD, [facility] ([phone]), at 09/21/2024 3:40 PM XR Chest One View (Exam End: 09/21/2024 2:01 PM) Result Value WORKSTATION ID [id number] Impression ET tube with tip projecting approximately 1.4 cm above the jonathan. Recommend retracting approximately 2 cm and follow-up imaging. New left basilar atelectasis and/or small pleural effusion. Aspiration or pneumonia could also this appearance. I Sacha Shipley MD discussed the results (Impression #1) with Bonnie Vazquez on 09/21/2024 4:42 PM and verified that the results were understood. I have personally reviewed the image(s) and the resident's interpretation and agree with the findings, Octavio Scott MD at 09/21/2024 5:09 PM Thank you for letting us participate in the care of this patient. If you are a health care provider and have any questions regarding this report, please contact the number below. For patients who have questions please contact the health ocular care technician that requested your imaging first. Electronically signed by: Octavio Scott MD, [facility] ([phone]), at 09/21/2024 5:[address] Head wo Contrast (Generic) (Exam End: 09/22/2024 4:02 AM) Result Value WORKSTATION ID [id number] Impression Stable head CT status post removal of subcutaneous drain. No new or enlarging hemorrhage. Stable pattern of mass effect Thank you for letting us participate in the care of this patient. If you are a health care provider and have any questions regarding this report, please contact the number below. For patients who have questions please contact the health ocular care technician that requested your imaging first. Electronically signed by: Armando Pan MD, [facility] ([phone]), at 09/22/2024 4:[address] Angiogram Chest for Pulmonary Embolus w Contrast (Exam End: 09/26/2024 1:37 PM) Result Value WORKSTATION ID [id number] Impression 1. No pulmonary embolism. 2. Pulmonary edema. 3. Bibasilar atelectasis. Superimposed patchy airspace opacity in the left lower lobe may represent atelectasis versus pneumonia. 4. Mild emphysema. 5. Mild cardiomegaly. Left atrial appendage occlusion device in situ. Mild multifocal coronary atherosclerosis. Correlation with echocardiography may be of benefit. 6. Unexpected Findin mm indeterminant left adrenal nodule. Per ACR white paper guidelines, follow-up CT of the Abdomen (Adrenal protocol - without and with intravenous contrast) is recommended in one year. 7. Mild sigmoid diverticulosis coli without secondary signs of acute diverticulitis. 8. Interval development of anasarca, which may be related to hypervolemia, hypoproteinemia, or combination thereof. 9. Endotracheal catheter in situ with tip 4 mm above the jonathan. Recommend retraction. 10. Enteric catheter in situ with tip terminating in the gastric pylorus. 11. Hill catheter in situ. Persistent distention of the urinary bladder. Correlation with catheter functionality is recommended. 12. Rectal catheter in situ. Thank you for letting us participate in the care of this patient. If you are a health care provider and have any questions regarding this report, please contact the number below. For patients who have questions please contact the health ocular care technician that requested your imaging first. Electronically signed by: Marvin Decker DO, [facility] ([phone]), at 09/26/2024 1:[address] Head wo Contrast (Generic) (Exam End: 09/26/2024 1:37 PM) Result Value WORKSTATION ID [id number] Impression 1. Stable right-sided parenchymal and subdural hemorrhages, associated mass effect and midline shift. 2. Stable left intraventricular hemorrhage. 3. No new or enlarging hemorrhages or extra-axial collections. Thank you for letting us participate in the care of this patient. If you are a health care provider and have any questions regarding this report, please contact the number below. For patients who have questions please contact the health ocular care technician that requested your imaging first. Electronically signed by: Smiley Cordova MD, [facility] ([phone]), at 09/26/2024 2:[address] Abdomen & Pelvis w Contrast (Exam End: 09/26/2024 1:37 PM) Result Value WORKSTATION ID [id number] Impression 1. No pulmonary embolism. 2. Pulmonary edema. 3. Bibasilar atelectasis. Superimposed patchy airspace opacity in the left lower lobe may represent atelectasis versus pneumonia. 4. Mild emphysema. 5. Mild cardiomegaly. Left atrial appendage occlusion device in situ. Mild multifocal coronary atherosclerosis. Correlation with echocardiography may be of benefit. 6. Unexpected Findin mm indeterminant left adrenal nodule. Per ACR white paper guidelines, follow-up CT of the Abdomen (Adrenal protocol - without and with intravenous contrast) is recommended in one year. 7. Mild sigmoid diverticulosis coli without secondary signs of acute diverticulitis. 8. Interval development of anasarca, which may be related to hypervolemia, hypoproteinemia, or combination thereof. 9. Endotracheal catheter in situ with tip 4 mm above the jonathan. Recommend retraction. 10. Enteric catheter in situ with tip terminating in the gastric pylorus. 11. Hill catheter in situ. Persistent distention of the urinary bladder. Correlation with catheter functionality is recommended. 12. Rectal catheter in situ. Thank you for letting us participate in the care of this patient. If you are a health care provider and have any questions regarding this report, please contact the number below. For patients who have questions please contact the health ocular care technician that requested your imaging first. Electronically signed by: Marvin Decker DO [facility] ([phone]), at 09/26/2024 1:54 PM XR Chest One View (Exam End: 09/28/2024 4:06 AM) Result Value WORKSTATION ID [id number] Impression 1. Limited examination. 2. Interval removal of the endotracheal catheter. 3. Stable position of other medical hardware. 4. Decreased but persistent patchy left retrocardiac airspace opacity, may be resolving atelectasis or pneumonia. Thank you for letting us participate in the care of this patient. If you are a health care provider and have any questions regarding this report, please contact the number below. For patients who have questions please contact the health ocular care technician that requested your imaging first. Electronically signed by: Marvin Decker DO, [facility] ([phone]), at 09/28/2024 4:12 AM XR Chest One View (Exam End: 09/28/2024 7:58 PM) Result Value WORKSTATION ID [id number] Impression 1. Slightly increased opacity in the left lower lung which may be due to atelectasis, aspiration or pneumonia. 2. Small bilateral pleural effusions. Thank you for letting us participate in the care of this patient. If you are a health care provider and have any questions regarding this report, please contact the number below. For patients who have questions please contact the health ocular care technician that requested your imaging first. Electronically signed by: Sammy Story MD, [facility] ([phone]), at 09/28/2024 8:09 PM XR Chest One View (Exam End: 09/29/2024 1:13 PM) Result Value WORKSTATION ID [id number] Impression 1. Limited examination. 2. Stable position of medical hardware. 3. The lung volumes are decreased, which accentuates the pulmonary vascular markings and cardiac silhouette. 4. Accounting for this, a stable mild component of congestive heart failure / fluid overload is suspected. 5. Stable moderate cardiomegaly. 6. Possible inferior subluxation of the left humerus. Correlation with patient symptomatology is recommended. If clinically indicated, further evaluation with dedicated left shoulder radiographs can be obtained. Thank you for letting us participate in the care of this patient. If you are a health care provider and have any questions regarding this report, please contact the number below. For patients who have questions please contact the health ocular care technician that requested your imaging first. Electronically signed by: Marvin Decker DO, [facility] ([phone]), at 09/30/2024 12:[address] Head wo Contrast (Generic) (Exam End: 10/04/2024 1:40 AM) Result Value WORKSTATION ID [id number] Impression 1. Overall interval improvement of the mass effect on the right hemisphere with evolution of blood products within the parenchyma post craniotomy. 2. Mild interval increase in extra-axial fluid inferior margin of the craniotomy. 3. Mild interval increase in size of third and lateral ventricles as well as peripheral CSF spaces 4. No new hemorrhage or infarction Thank you for letting us participate in the care of this patient. If you are a health care provider and have any questions regarding this report, please contact the number below. For patients who have questions please contact the health ocular care technician that requested your imaging first. Electronically signed by: Armando Pan MD, [facility] ([phone]), at 10/04/2024 2:12 AM MRI Brain wwo Contrast (Generic) (Exam End: 10/04/2024 10:30 PM) Result Value WORKSTATION ID [id number] Impression 1. Fluid collections in the right parietal lobe now showing some restricted diffusion, question abscess formation or hemorrhage. Fluid in the collections projecting deep to the craniotomy and at the margin of the craniotomy with restricted diffusion suggesting abscess formation or hemorrhage. 2. Fluid collections in the extra-axial space and adjacent to the craniotomy. These do not appear to demonstrate restricted diffusion and may represent a meningocele formation. 3. Interval decrease in mass effect compared to MRI of 09/19/2024. Thank you for letting us participate in the care of this patient. If you are a health care provider and have any questions regarding this report, please contact the number below. For patients who have questions please contact the health ocular care technician that requested your imaging first. Electronically signed by: Armando Pan MD, [facility] ([phone]), at 10/05/2024 12:31 AM ASSESSMENT & PLAN Lucero Bruno 74 y.o. female with PMHx RIGHT occipital hemorrhage, chronic a-fib presented for watchman procedure. Patient developed headache after procedure and was taken to CT where she was found to have RIGHT IPH with mass effect and midline shift s/p craniotomy. 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 Course complicated by dysphagia requiring PEG tube placement. 10/06/24-Lucero Bruno is neurologically stable, deficits include left hemiplegia and left hemianopia. She had an episode of chest pain today with normal trop, EKG, CXR. Will continue to monitor. Planning void trial for today, also downgraded to floor status. MR for DC to SNF pending placement. 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 - Continue Amlodipine 5mg daily - Continue diltiazem 90mg q6 #Pulm - - goal SpO2> 94% - O2 as needed - nebs PRN #GI - >dysphagia - follow up [employer] recs - NPO diet (Give Meds) - maintain bowel reg - GI ppx-protonix 40mg - PEG tube placed 10/04 #FEN/ - - maintain euvolemia, I=O - Goal Na 135-145, K > 4, Mg > 1 # Heme - - goal Hgb > 7, INR < 1.5, Platelets > 50k - DVT ppx: Lovenox, SCDs # Endo - - goal glucose 120-180 --> ISS Recent Labs 09/17/24 0039 05/06/24 0548 HA1C 6.1* 6.0* # ID - > Leukocytosis > Pneumonia > Respiratory Distress, resolved - for temp > 38C --> UA, CXR, blood cx, sputum cx - tylenol PRN - repeat CXR 10/06 - Completed Zosyn (09/24 - 09/29) - CBC - ID consult - C. Diff negative # Other - Activity: as tolerated - Dispo: Shelter facility - Last BM: Last Bowel Movement: 10/04/24 - code status: Attempt Cardiopulmonary Resuscitation - Inpatient Patient Lines/Drains/Airways Status Active Tubes/Lines/Drains Name Placement date Placement time Site Days PIV 10/05/242028 22 gauge;1 in length median vein (underside of arm), right 10/05/242028 -- 1 Enterostomy Tube 10/04/24 1236 gastrostomy tube with balloon midline 10/04/24 1236 -- 2 Urethral Catheter 10/02/245 14 10/02/24 0315 -- 4 Please page Vascular Neurology with any questions, #[phone] Anitra Ruiz DO Department [place] [address] Associated attestation - Karli Morales MD - 10/06/2024 9:11 PM EST Neurology Staff Note I have reviewed the resident's history during the visit and I agree with the details as written. Myphysical examination confirms the resident's findings. The assessment and plan were formulated in discussion with me at the time of the visit and I agree with them as documented. * Areli Hathaway, [employer] - 10/05/2024 3:18 PM EST Speech Therapy Note Patient Profile: Lucero Bruno is a 74 y.o. female with PMHx of A-fib, CHRISTOPHER, HLD, and prior IPH (04/2024) who presented to [facility] on 09/16/2024 for placement of Watchman with cardiology. She developed headaches and nausea post-operatively and was found to have a large R [id number] IPH, now s/p craniotomy. Patient was intubated from 09/16-09/21 with extubation complicated by stridor requiring re-intubation from 09/21-09/26 (11 days total). [employer] has been following since 09/27 for communication and dysphagia management. Interval History: PEG placed yesterday Recent Imaging: MRI Brain (10/05/2024) IMPRESSION 1. Fluid collections in the right parietal lobe now showing some restricted diffusion, question abscess formation or hemorrhage. Fluid in the collections projecting deep to the craniotomy and at the margin of the craniotomy with restricted diffusion suggesting abscess formation or hemorrhage. 2. Fluid collections in the extra-axial space and adjacent to the craniotomy. These do not appear to demonstrate restricted diffusion and may represent a meningocele formation. 3. Interval decrease in mass effect compared to MRI of 09/19/2024. Subjective: Patient was pleasant and engaged with care. She used her voice for the first time during a therapy session today. Objective: Patient seen for dysphagia management and demonstrated the following: Pain: Denies Respiratory Status: Room air, satting 96% Current Diet: NPO diet (Give Meds) Feeding / Oral Care Status: Patient requires cues and/or assistance due to significant motor limitations; able to accept and bring a swab or spoon to her mouth with infrequent verbal cues (overshootsto L) Cognitive-Linguistic Status: A&Ox4 Good focused attention Responding to questions appropriately using a combination of head nods, hand gestures, and/or shortutterances (1-3 words) Writing is reasonably intelligible at the sentence level; able to independently request clipboard Command Following: Follows multi-step commands within motor constraints Positioning: HOB at 55 degrees Oral Motor Examination: WFL Impaired Comments STRUCTURES Facial Symmetry X Left facial droop Lips X Reduced retraction on L, improving on R Tongue X Deviates L on protrusion; ROM, agility, and coordination improving though still impaired Jaw X Palate/Velum X Dentition X Missing right upper teeth and multiple others; visible decay OTHER Phonation X Gravelly, strained, hypophonic Intelligibility X Approximately 75% at the word level; most impacted by strain and articulatory imprecision Volitional Cough X Reduced but gradually improving Sensation X Suspect L sensory impairment vs. Inattention, improving Secretion Management X Bolus Presentation(s): Tested Comments Thin liquids [place] thick liquids Honey thick liquids Pureed solids Dysphagia soft Mechanical soft Regular solids Pills Other X [place] ice Oral Preparatory Phase Mastication: N/A Oral transit: Lingual movement is sluggish and effortful but significantly improved from previous sessions Bolus cohesion: Suspect reduced due to decreased lingual control Oral containment: Reduced labial seal with intermittent left-sided anterior loss Oral stasis: None after double swallow Pharyngeal Phase Swallow initiation: Present, swallows 2x/bite with variable timeliness Vocal quality change: None Cough / throat clear: Delayed cough following approximately 20% of ice trials Pt complaint of food getting stuck: None with limited volumes and consistencies Fatigue across trials: None with slow rate Respiratory rate and respiratory swallow pattern: Unlabored and coordinated Esophageal Observations Unable to comment meaningfully with limited trials Compensatory Techniques: Extended time, physical assistance (clinician held cup and patient held spoon) Education: Patient educated on results and recommendations, and verbalized understanding. Patient status and swallow recommendations were discussed with nursing. Assessment: Aubree was seen today for communication and dysphagia management. She demonstrated markedimprovements in orofacial range of motion and coordination, and phonatory abilities. Aubree's voice was gravelly and strained and her speech was slow with inconsistent articulatory breakdowns consistent with oral apraxia. However, when asked, Aubree endorsed improved control of her lips, tongue, and voice compared to previous sessions. These changes positively impacted Aubree's oral manipulation of small amounts of PO. Her oral phase was sluggish and effortful but subjectively more efficient comparedto previous observations. She presented with overt signs of aspiration in approximately 20% of trials. Aubree will benefit from ongoing swallow stimulation. Please provide single ice chips between [employer] sessions when she is alert and accepting. We will continue to follow for serial reassessment, likelyincluding an instrumental evaluation once she can more reliably tolerate PO intake. Diagnosis: Oral and suspected pharyngeal dysphagia 2/2 IPH (improving), dysphonia 2/2 IPH vs. 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 It is based on evidence indicating that aspiration of small amounts of water is a benign event - unlike juice, soda or coffee, water has a neutral pH level. Therefore, it is well tolerated by the lungs and is quickly absorbed into the bloodstream. Guidelines: Ensure patient is alert, awake, and stable from a respiratory standpoint. Ensure patient is sitting upright. Provide frequent and thorough oral care. Oral care must be provided before giving ice chips Patient may have ice chips following oral care: Provide small single ice chips, one at a time. Allow adequate time after each ice chip for patient to cough or clear their throat if needed. Provide no more than a few (~1-5) ice chips in one sitting. Stop giving ice chips if patient fatigues or becomes uncomfortable. PO Medications: IV or other alternative means only Aspiration Precautions: Sit upright with all PO intake Single ice chips only Patient will require feeding assistance Excellent oral care to reduce risk of aspiration pneumonia Speech Therapy Goals: Pt will tolerate the least restrictive diet without further respiratory decompensation. ONGOING Pt will be independent with aspiration precautions, diet modifications, and safe swallowing strategies. ONGOING Plan: Therapy Frequency (CUTTER AND EDGE TRIMMER Eval): 3-5 times/wk Patient is in agreement with the plan of care. Total Minutes (Speech Language Pathology): 45 Areli Hathaway MS, [facility] Speech-Language Pathologist Inpatient Rehabilitation Pager # [phone] * Roberta Damon - 10/05/2024 3:10 PM EST Reserve Officer Encounter Note Patient Name: Lucero Brnuo : [id number] MR#: [id number] Admit Date: 09/16/2024 10:06 AM Hospital Day 19 days Narrative: Visited patient on unit rounds to follow up on visits from Father Donnie Moreira and Operations Officer Trust Department Postage Machine Operator Lexy. The patient was lying in bed. Assessment: The patient was able to communicate by giving a thumbs up. She seemed to understand what I was saying. Intervention and Outcome: Talked gently to the patient. Offered to say a prayer with her if prayer was something she liked. She gave a big thumbs up so I said a prayer with her. She clasped my hand tightly. She mouthed thank you. I told her I would keep her in my prayers. She waved good bye. Follow-up: Will plan to follow up for continued support. Time in Direct Care: 10 minutes. Roberta Damon 10/05/2024 * Anupama Pastrana RN - 10/05/2024 2:52 PM ESTSummary: SNF choices/expanded referral Based on discussions with the multi-disciplinary healthcare team, the patient would benefit from SNF level of care at discharge. I have met with the residential sales representative son Don Pollard to: discuss discharge planning needs. provide the [facility], Office of Care Management letter from the Federal Aid Coordinator pertaining to rehab referrals. provide a letter describing our affiliations within the [facility] and educate about their right to choose where referrals are sent. provide the CMS Star Quality Rating handout. review the different levels of rehab including SNF, swing, and acute. provide a list of facilities within their preferred geographic area. request that they provide at least three choices for referral. They have requested referrals to: [facility] [address] [place] [address] [address] [facility] [address] [place] [id number] Note routed to a Global Mobility Specialist who will communicate referrals to facilities and provide any required information. Anupama Pastrana, MSN, RN ACM-RN [facility] manager ed * Dheeraj Moreira - 10/05/2024 9:28 AM EST Reserve Officer Encounter Note Patient Name: Lucero Bruno : [id number] MR#: [id number] Admit Date: 09/16/2024 10:06 AM Hospital Day 19 days Narrative:Visited to introduce and assess acceptance of Reserve Officer services. Assessment:Family coping positively with stresses of illness/hospitalization at this time. I met with patient family member in [facility] who is very dedicated and comes almost ever day and shared that Lucero is getting better slowly. Intervention and Outcome:Provided emotional, spiritual support and listening presence. Reserve Officer services accepted. Conversation to build trusting relationship. Provided pastoral presence. Provided spiritual guidance. Follow-up: yes Time in Direct Care:08 Mins Dheeraj Moreira 10/05/2024 * Liane Holley PA - 10/05/2024 8:22 AM EST Interventional Radiology Inpatient Progress Note Admitted 09/16/2024 Procedure(s): Gastrostomy catheter placement Post-procedure day: #1 Time of patient encounter: 08:30AM 24 Hour Events: -No adverse events overnight -AVSS on 2L NC, pain well controlled Last Value 24 Hour Range Temperature 37 ??C (98.6 ??F) Temp: [36.5 ??C (97.7 ??F)-37 ??C (98.6 ??F)] Heart Rate 74 Heart Rate: [61-89] Blood Pressure 97/77 BP: (97-149)/(45-77) Respiratory Rate 15 Resp: [13-19] SpO2 98 % SpO2: [95 %-100 %] Physical Exam GEN No distress, resting in bed ACCESS G-tube insertion site C/D/I Labs: Reviewed - Last 3 wbc, hgb, hct plt Recent Labs 10/05/24 0008 10/04/24 0029 10/03/24 0405 WBC 13.56* 14.67* 15.33* HGB 10.8* 10.4* 10.5* HCT 33.5* 32.8* 32.4* PLATELET 241 303 359* Imaging: No relevant post procedural imaging. Assessment: 74 y.o. female POD#1 from gastrostomy catheter placement in the setting of right occipital hemorrhage, inability to swallow, requiring detention enteral access for nutrition. Catheter functioning well, tolerating tube feeds. Plan: -Gastropexy suture release ordered and to be scheduled in 7-10 days. -IR will sign-off at this time. Please page with further questions and concerns. RHONDA BarronC Interventional Radiology IR Team Pager [phone] * Rob Guzman MD - 10/05/2024 7:44 AM EST [facility] NEUROSURGERY PROGRESS NOTE ID: Lucero Bruno 74 y.o. female : 1950 LOS: 19 Neurosurgical Procedures this Admission: 09/16/24, Dr. Espinal: R craniotomy for IPH evacuation INTERVAL Hx: -Neurostable ON. Following commands. Oriented x 3 with yes/no questions. Wound is nonerythematous, no drainage. AF. WBC trending down in setting of pneumonia. MEDICATIONS: Scheduled Meds: amLODIPine 5 mg Per G Tube Daily dilTIAZem 90 mg Per G Tube Q6H CARLY multivitamin with minerals 1 tablet Per G Tube Daily protein powder 2 Scoop Per G Tube TID pantoprazole 40 mg Intravenous Daily enoxaparin 40 mg Subcutaneous Nightly insulin lispro 0-3 Units Subcutaneous Q4H CARLY ipratropium-albuteroL 3 mL Nebulization Q4H insulin lispro 2-12 Units Subcutaneous Q4H CARLY Continuous Infusions: tube feeding diet 40 mL/hr at 10/04/24 1931 PRN: acetaminophen, 975 mg, Q6H PRN docusate sodium, 100 mg, BID PRN And sennosides, 17.6 mg, BID PRN polyethylene glycoL (MIRALAX) oral powder, 17 g, Daily PRN potassium chloride ER, 40 mEq, Q4H PRN Or potassium chloride ER, 20 mEq, Q4H PRN iohexoL, 0-200 mL, Once PRN glucose 40% oral geL, 15-30 g of glucose, Q15 Min PRN Or dextrose, 25 g, Q15 Min PRN Or glucagon, 1 mg, Q15 Min PRN ondansetron, 4 mg, Q8H PRN labetaloL, 20 mg, Q4H PRN sodium chloride, 4 mL, Q6H PRN bisacodyL, 10 mg, Daily PRN EXAM: Temp: [36.5 ??C (97.7 ??F)-37 ??C (98.6 ??F)] Heart Rate: [60-89] Resp: [13-19] BP: (97-149)/(45-77) SpO2: [95 %-100 %] Heart Rate from SpO2: [60 bpm-89 bpm] I/O: Intake/Output Summary (Last 24 hours) at 10/05/2024 0744 Last data filed at 10/05/2024 0600 Gross per 24 hour Intake 1000 ml Output 1276 ml Net -276 ml Drains: AUBREY out 09/21 GEN: awake and alert this am NEURO: A/ox3 to yes/no questions R pupil 3mm, reactive L pupil 4mm R gaze preference, does not come to midline MOTOR: RUE: FC, thumbs up LUE: withdraws to noxious stimuli RLE: FC, wiggles toes LLE: flicker wiggles toes to command L hemianesthesia Incision CDI, stacey out AUBREY site negative for drainage. Dressing dry. LABS: Recent Labs 10/05/24 0008 10/04/249 10/03/24 0405 WBC 13.56* 14.67* 15.33* HGB 10.8* 10.4* 10.5* PLATELET 241 303 359* Recent Labs 10/05/24 0008 10/04/24 0029 10/03/24 0405 NA 139 142 146* K 4.2 4.1 4.0 CL 103 106 108* CO2 29 26 30 BUN 24* 24* 22* CREATININE 0.36* 0.36* 0.35* No results for input(s): PT, INR in the last 72 hours. IMAGING: Results for orders placed or performed during the hospital encounter of 09/16/24 CT Head wo Contrast (Generic) (Exam End: 09/16/2024 5:26 PM) Result Value WORKSTATION ID [id number] Impression Interval expansion of now large right-sided temporal occipital intraparenchymal hemorrhage with significant mass effect resulting in 1 cm leftward midline shift. Per chart review, this patient was seen by neurosurgery and taken emergently to the OR. I have personally reviewed the image(s) and the resident's interpretation and agree with the findings, Lana Reinoso at 09/16/2024 6:01 PM Thank you for letting us participate in the care of this patient. If you are a health care provider and have any questions regarding this report, please contact the number below. For patients who have questions please contact the health ocular care technician that requested your imaging first. Electronically signed by: Lana Reinoso [facility] ([phone]), at 09/16/2024 6:[address] Head wo Contrast (Generic) (Exam End: 09/16/2024 11:21 PM) Result Value WORKSTATION ID [id number] Impression CT head: 1. Interval craniotomy with residual or recurrent hemorrhage right temporal and parietal lobe. 2. New hemorrhage right [...] in the care of this patient. If you are a health care provider and have any questions regarding this report, please contact the number below. For patients who have questions please contact the health ocular care technician that requested your imaging first. Electronically signed by: Armando Pan MD, [facility] ([phone]), at 09/17/2024 1:[address] Venogram Brain (Exam End: 09/16/2024 11:21 PM) Result Value WORKSTATION ID [id number] Impression CT head: 1. Interval craniotomy with residual or recurrent hemorrhage right temporal and parietal lobe. 2. New hemorrhage right [...] in the care of this patient. If you are a health care provider and have any questions regarding this report, please contact the number below. For patients who have questions please contact the health ocular care technician that requested your imaging first. Electronically signed by: Armando Pan MD, [facility] ([phone]), at 09/17/2024 1:42 AM XR Chest One View (Exam End: 09/16/2024 11:00 PM) Result Value WORKSTATION ID [id number] Impression Satisfactorily positioned enteric and endotracheal tubes. Left lower lobe atelectasis versus pneumonia. Thank you for letting us participate in the care of this patient. If you are a health care provider and have any questions regarding this report, please contact the number below. For patients who have questions please contact the health ocular care technician that requested your imaging first. Electronically signed by: Pamela Beard MD, [facility] ([phone]), at 09/17/2024 12:09 AM XR Abdomen 1 view (Generic) (Exam End: 09/16/2024 11:00 PM) Result Value WORKSTATION ID [id number] Impression Satisfactorily positioned enteric and endotracheal tubes. Left lower lobe atelectasis versus pneumonia. Thank you for letting us participate in the care of this patient. If you are a health care provider and have any questions regarding this report, please contact the number below. For patients who have questions please contact the health ocular care technician that requested your imaging first. Electronically signed by: Pamela Beard MD, [facility] ([phone]), at 09/17/2024 12:[address] Head wo Contrast (Generic) (Exam End: 09/17/2024 4:51 AM) Result Value WORKSTATION ID [id number] Impression Increased size and density of dominant right parietal hematoma, and of hemorrhage extending medially into the basal ganglia. Foci of thalamocapsular hemorrhage on the right are stable. No evidence of progressive intraventricular hemorrhage or ventricular dilation. No definitive increase in leftward midline shift or herniation. Thank you for letting us participate in the care of this patient. If you are a health care provider and have any questions regarding this report, please contact the number below. For patients who have questions please contact the health ocular care technician that requested your imaging first. Electronically signed by: Elvin Bolden DO, [facility] ([phone]), at 09/17/2024 8:38 AM XR Chest One View (Exam End: 09/17/2024 2:13 PM) Result Value WORKSTATION ID [id number] Impression 1. No focal opacity in lung 2. Pulmonary edema, progressed since last examination. 3. Tip of ET tube is 23 mm superior cuff to jonathan. Consider adjustment. 4. Sidehole and tip of NG tube is below the diaphragm. Thank you for letting us participate in the care of this patient. If you are a health care provider and have any questions regarding this report, please contact the number below. For patients who have questions please contact the health ocular care technician that requested your imaging first. Electronically signed by: Zoey Zaabla MD, [facility] ([phone]), at 09/17/2024 2:43 PM XR Chest One View (Exam End: 09/18/2024 8:43 AM) Result Value WORKSTATION ID [id number] Impression Tubes and lines as described. Blunting of the left costophrenic angle suggests tiny layering left effusion with associated left basilar consolidation/atelectasis Thank you for letting us participate in the care of this patient. If you are a health care provider and have any questions regarding this report, please contact the number below. For patients who have questions please contact the health ocular care technician that requested your imaging first. Abdomen 1 view (Generic) (Exam End: 09/18/2024 12:31 PM) Result Value WORKSTATION ID [id number] Impression Dobbhoff tube tip along the greater curve of the stomach. Thank you for letting us participate in the care of this patient. If you are a health care provider and have any questions regarding this report, please contact the number below. For patients who have questions please contact the health ocular care technician that requested your imaging first. Brain wwo Contrast (Generic) (Exam End: 09/19/2024 5:43 PM) Result Value WORKSTATION ID [id number] Impression Unchanged size of large right cerebral hemisphere ICH status post partial evacuation. Numerous small foci of decreased acute infarction both along and separate from the site of hemorrhage. These foci are present in both cerebral hemispheres and have a pattern most consistent with embolic infarction. No evidence of AUTOMOBILE DESIGNER malignancy Thank you for letting us participate in the care of this patient. If you are a health care provider and have any questions regarding this report, please contact the number below. For patients who have questions please contact the health ocular care technician that requested your imaging first. Electronically signed by: Rios Swartz MD, [facility] ([phone]), at 09/20/2024 8:[address] Head wo Contrast (Generic) (Exam End: 09/21/2024 3:50 AM) Result Value WORKSTATION ID [id number] Impression Stable hemorrhage right temporal, parietal, right posterior limb internal capsule and right thalamus. Mild progression of vasogenic edema adjacent to hemorrhage. Similar pattern and extent of local and generalized mass effect with stable subfalcine herniation and uncal herniation. Thank you for letting us participate in the care of this patient. If you are a health care provider and have any questions regarding this report, please contact the number below. For patients who have questions please contact the health ocular care technician that requested your imaging first. Electronically signed by: Armando Pan MD, [facility] ([phone]), at 09/21/2024 4:55 AM XR Abdomen 1 view (Generic) (Exam End: 09/21/2024 2:01 PM) Result Value WORKSTATION ID [id number] Impression Dobbhoff tube and enteric tube sidehole and tip is projecting over the expected location of the stomach. I have personally reviewed the image(s) and the resident's interpretation and agree with the findings, Shraddha Cox MD at 09/21/2024 3:40 PM Thank you for letting us participate in the care of this patient. If you are a health care provider and have any questions regarding this report, please contact the number below. For patients who have questions please contact the health ocular care technician that requested your imaging first. Electronically signed by: Shraddha Cox MD, [facility] ([phone]), at 09/21/2024 3:40 PM XR Chest One View (Exam End: 09/21/2024 2:01 PM) Result Value WORKSTATION ID [id number] Impression ET tube with tip projecting approximately 1.4 cm above the jonathan. Recommend retracting approximately 2 cm and follow-up imaging. New left basilar atelectasis and/or small pleural effusion. Aspiration or pneumonia could also this appearance. I Sacha Shipley MD discussed the results (Impression #1) with Bonnie Vazquez on 09/21/2024 4:42 PM and verified that the results were understood. I have personally reviewed the image(s) and the resident's interpretation and agree with the findings, Octavio Scott MD at 09/21/2024 5:09 PM Thank you for letting us participate in the care of this patient. If you are a health care provider and have any questions regarding this report, please contact the number below. For patients who have questions please contact the health ocular care technician that requested your imaging first. Electronically signed by: Octavio Scott MD, [facility] ([phone]), at 09/21/2024 5:[address] Head wo Contrast (Generic) (Exam End: 09/22/2024 4:02 AM) Result Value WORKSTATION ID [id number] Impression Stable head CT status post removal of subcutaneous drain. No new or enlarging hemorrhage. Stable pattern of mass effect Thank you for letting us participate in the care of this patient. If you are a health care provider and have any questions regarding this report, please contact the number below. For patients who have questions please contact the health ocular care technician that requested your imaging first. Electronically signed by: Armando Pan MD, [facility] ([phone]), at 09/22/2024 4:[address] Angiogram Chest for Pulmonary Embolus w Contrast (Exam End: 09/26/2024 1:37 PM) Result Value WORKSTATION ID [id number] Impression 1. No pulmonary embolism. 2. Pulmonary edema. 3. Bibasilar atelectasis. Superimposed patchy airspace opacity in the left lower lobe may represent atelectasis versus pneumonia. 4. Mild emphysema. 5. Mild cardiomegaly. Left atrial appendage occlusion device in situ. Mild multifocal coronary atherosclerosis. Correlation with echocardiography may be of benefit. 6. Unexpected Findin mm indeterminant left adrenal nodule. Per ACR white paper guidelines, follow-up CT of the Abdomen (Adrenal protocol - without and with intravenous contrast) is recommended in one year. 7. Mild sigmoid diverticulosis coli without secondary signs of acute diverticulitis. 8. Interval development of anasarca, which may be related to hypervolemia, hypoproteinemia, or combination thereof. 9. Endotracheal catheter in situ with tip 4 mm above the jonathan. Recommend retraction. 10. Enteric catheter in situ with tip terminating in the gastric pylorus. 11. Hill catheter in situ. Persistent distention of the urinary bladder. Correlation with catheter functionality is recommended. 12. Rectal catheter in situ. Thank you for letting us participate in the care of this patient. If you are a health care provider and have any questions regarding this report, please contact the number below. For patients who have questions please contact the health ocular care technician that requested your imaging first. Electronically signed by: Marvin Decker DO, [facility] ([phone]), at 09/26/2024 1:[address] Head wo Contrast (Generic) (Exam End: 09/26/2024 1:37 PM) Result Value WORKSTATION ID [id number] Impression 1. Stable right-sided parenchymal and subdural hemorrhages, associated mass effect and midline shift. 2. Stable left intraventricular hemorrhage. 3. No new or enlarging hemorrhages or extra-axial collections. Thank you for letting us participate in the care of this patient. If you are a health care provider and have any questions regarding this report, please contact the number below. For patients who have questions please contact the health ocular care technician that requested your imaging first. Electronically signed by: Smiley Cordova MD, [facility] ([phone]), at 09/26/2024 2:[address] Abdomen & Pelvis w Contrast (Exam End: 09/26/2024 1:37 PM) Result Value WORKSTATION ID [id number] Impression 1. No pulmonary embolism. 2. Pulmonary edema. 3. Bibasilar atelectasis. Superimposed patchy airspace opacity in the left lower lobe may represent atelectasis versus pneumonia. 4. Mild emphysema. 5. Mild cardiomegaly. Left atrial appendage occlusion device in situ. Mild multifocal coronary atherosclerosis. Correlation with echocardiography may be of benefit. 6. Unexpected Findin mm indeterminant left adrenal nodule. Per ACR white paper guidelines, follow-up CT of the Abdomen (Adrenal protocol - without and with intravenous contrast) is recommended in one year. 7. Mild sigmoid diverticulosis coli without secondary signs of acute diverticulitis. 8. Interval development of anasarca, which may be related to hypervolemia, hypoproteinemia, or combination thereof. 9. Endotracheal catheter in situ with tip 4 mm above the jonathan. Recommend retraction. 10. Enteric catheter in situ with tip terminating in the gastric pylorus. 11. Hill catheter in situ. Persistent distention of the urinary bladder. Correlation with catheter functionality is recommended. 12. Rectal catheter in situ. Thank you for letting us participate in the care of this patient. If you are a health care provider and have any questions regarding this report, please contact the number below. For patients who have questions please contact the health ocular care technician that requested your imaging first. Electronically signed by: Marvin Decker DO, [facility] ([phone]), at 09/26/2024 1:54 PM XR Chest One View (Exam End: 09/28/2024 4:06 AM) Result Value WORKSTATION ID [id number] Impression 1. Limited examination. 2. Interval removal of the endotracheal catheter. 3. Stable position of other medical hardware. 4. Decreased but persistent patchy left retrocardiac airspace opacity, may be resolving atelectasis or pneumonia. Thank you for letting us participate in the care of this patient. If you are a health care provider and have any questions regarding this report, please contact the number below. For patients who have questions please contact the health ocular care technician that requested your imaging first. Electronically signed by: Marvin Decker DO, [facility] ([phone]), at 09/28/2024 4:12 AM XR Chest One View (Exam End: 09/28/2024 7:58 PM) Result Value WORKSTATION ID [id number] Impression 1. Slightly increased opacity in the left lower lung which may be due to atelectasis, aspiration or pneumonia. 2. Small bilateral pleural effusions. Thank you for letting us participate in the care of this patient. If you are a health care provider and have any questions regarding this report, please contact the number below. For patients who have questions please contact the health ocular care technician that requested your imaging first. Electronically signed by: Sammy Story MD, [facility] ([phone]), at 09/28/2024 8:09 PM XR Chest One View (Exam End: 09/29/2024 1:13 PM) Result Value WORKSTATION ID [id number] Impression 1. Limited examination. 2. Stable position of medical hardware. 3. The lung volumes are decreased, which accentuates the pulmonary vascular markings and cardiac silhouette. 4. Accounting for this, a stable mild component of congestive heart failure / fluid overload is suspected. 5. Stable moderate cardiomegaly. 6. Possible inferior subluxation of the left humerus. Correlation with patient symptomatology is recommended. If clinically indicated, further evaluation with dedicated left shoulder radiographs can be obtained. Thank you for letting us participate in the care of this patient. If you are a health care provider and have any questions regarding this report, please contact the number below. For patients who have questions please contact the health ocular care technician that requested your imaging first. Electronically signed by: Marvin Decker DO, [facility] ([phone]), at 09/30/2024 12:[address] Head wo Contrast (Generic) (Exam End: 10/04/2024 1:40 AM) Result Value WORKSTATION ID [id number] Impression 1. Overall interval improvement of the mass effect on the right hemisphere with evolution of blood products within the parenchyma post craniotomy. 2. Mild interval increase in extra-axial fluid inferior margin of the craniotomy. 3. Mild interval increase in size of third and lateral ventricles as well as peripheral CSF spaces 4. No new hemorrhage or infarction Thank you for letting us participate in the care of this patient. If you are a health care provider and have any questions regarding this report, please contact the number below. For patients who have questions please contact the health ocular care technician that requested your imaging first. Electronically signed by: Armando Pan MD, [facility] ([phone]), at 10/04/2024 2:12 AM MRI Brain wwo Contrast (Generic) (Exam End: 10/04/2024 10:30 PM) Result Value WORKSTATION ID [id number] Impression 1. Fluid collections in the right parietal lobe now showing some restricted diffusion, question abscess formation or hemorrhage. Fluid in the collections projecting deep to the craniotomy and at the margin of the craniotomy with restricted diffusion suggesting abscess formation or hemorrhage. 2. Fluid collections in the extra-axial space and adjacent to the craniotomy. These do not appear to demonstrate restricted diffusion and may represent a meningocele formation. 3. Interval decrease in mass effect compared to MRI of 09/19/2024. Thank you for letting us participate in the care of this patient. If you are a health care provider and have any questions regarding this report, please contact the number below. For patients who have questions please contact the health ocular care technician that requested your imaging first. Assessment: 74 y.o. female with PMHx notable for Afib (taking ASA, previously on apixaban-stopped taking after IPH in April 2024), CHRISTOPHER, HLD, BMI of 36, prior IPH 04/2024 who presented to hospital 09/16/24 for placement of Watchman with cardiology. She developed headaches and nausea post op and CT scan noted large R [id number] IPH. Now s/p R craniotomy for IPH evacuation. Repeated CTH wo contrast post-op overnight into 09/17 showing increased hemorrhage on R but exam remains stable. Will defer further neurosurgical intervention at this time and continue to closely monitor exam. 09/18 AM noted L eye down, possible out. MRI Brain wwo on 09/19 showing small scattered infarcts c/w embolic infarcts not that would explain possible palsy. 10/04, new drainage noted to pillow with AUBREY site expressing SS fluid. No fevers or concerning WBC. HCT with small fluid collection. Pending PEG placement. Plan: -MRI Brain wwo - hematoma vs abscess per radiology. Clinical findings and imaging review favors evolving hematoma. -Rec inflammatory markers (CRP/ESR) -Will d/w with Dr. Espinal -Rest of care per primary -f/u in 1 mos w/ CTH in clinic with JESSI For questions please call [employer] pager [phone] Rob Guzman MD Clinical Documentation Improvement: Active Hospital Problems Diagnosis Right occipital hemorrhage with associated vassogenic edema, anticoagulation associated, probableCAA Severe protein-calorie malnutrition Presence of Watchman left atrial appendage closure device S/P craniotomy Resolved Hospital Problems No resolved problems to display. * Anitra Ruiz DO - 10/05/2024 6:55 AM EST Images from the original note were not included. VASCULAR NEUROLOGY DAILY PROGRESS NOTE Admit Date 09/16/2024 Responsible Attending: Gissell Velazco MD Primary Provider: Leila Manjarrez [phone] Hospital Day: Hospital Day: 20 Patient ID 74 y.o. female with PMHx RIGHT occipital hemorrhage, chronic a-fib presented for watchman procedure. Patient developed headache after procedure and was taken to CT where she was found to have RIGHT IPH with mass effect and midline shift s/p craniotomy. 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 Course complicated by dysphagia requiring PEG tube placement. 24hr Events: - Underwent PEG placement successfully yesterday - Yesterday MRI showed possible abscess versus meningocele versus hematoma - CHAVEZ CARRASCO - This morning denies any acute concerns or complaints EXAM Last value Range last 24 hrs Temperature Temp: 37 ??C (98.6 ??F) Temp: [36.5 ??C (97.7 ??F)-37 ??C (98.6 ??F)] Heart Rate Heart Rate: 74 Heart Rate: [60-89] Blood Pressure BP: 97/77 BP: (97-149)/(45-77) Respiratory Rate Resp: 15 Resp: [13-19] SpO2 SpO2: 98 % SpO2: [95 %-100 %] GENERAL - Alert, awake, no verbal output CN - PERRL, right gaze preference, unable to cross midline to left. No blink to threat on left. MOTOR- LUE/LLE 0/5 RUE/RLE able to sustain gravity REFLEX - Babinski elicited strong withdrawal b/l SENSATION - intact sensation on right COORDINATION - FTN intact on RUE GAIT - not assessed DATA I/O last 3 completed shifts: In: 2239.5 [P.O.:20; I.V.:45; NG/GT:1894.5] Out: 2376 [Urine:2325; Stool:50; Blood:1] Labs Recent Labs 10/05/24 0008 10/04/24 0029 10/03/24 0405 10/02/249 10/01/24 0021 WBC 13.56* 14.67* 15.33* 19.16* 22.24* HGB 10.8* 10.4* 10.5* 10.1* 9.9* HCT 33.5* 32.8* 32.4* 31.1* 29.2* PLATELET 241 303 359* 399* 370* NEUTROABS 11.69* 12.52* 13.43* 16.45* 20.01* Recent Labs 10/05/24 0008 10/04/24 0029 10/03/24 0405 10/02/24 0149 10/01/24 0021 NA 139 142 146* 146* 141 K 4.2 4.1 4.0 3.6 3.2* CL 103 106 108* 108* 105 CO2 29 26 30 28 28 BUN 24* 24* 22* 27* 23* CREATININE 0.36* 0.36* 0.35* 0.39* 0.43* GLUCOSE 136 166 199 123 124 Recent Labs 10/05/24 0008 10/04/24 0029 10/03/24 0405 CALCIUM 9.1 8.9 9.1 MAGNESIUM 0.85 0.80 0.88 PHOS 4.1 2.6 2.7 Lipid Panel Lab Results Component Value Date CHLPL 203 09/17/2024 CHLPL 135 05/06/2024 HDL 45 09/17/2024 HDL 46 05/06/2024 TRIG 95 09/20/2024 TRIG 101 05/06/2024 LDLCHOL 69 05/06/2024 LDLDIRECT 133 09/17/2024 Lab Results Component Value Date HA1C 6.1 (H) 09/17/2024 Imaging/EKG 1. Overall interval improvement of the mass effect on the right hemisphere with evolution of blood products within the parenchyma post craniotomy. 2. Mild interval increase in extra-axial fluid inferior margin of the craniotomy. 3. Mild interval increase in size of third and lateral ventricles as well as peripheral CSF spaces 4. No new hemorrhage or infarction ASSESSMENT & PLAN Lucero Bruno 74 y.o. female with PMHx RIGHT occipital hemorrhage, chronic a-fib presented for watchman procedure. Patient developed headache after procedure and was taken to CT where she was found to have RIGHT IPH with mass effect and midline shift s/p craniotomy. 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 Course complicated by dysphagia requiring PEG tube placement. 10/05/24-Lucero Bruno is neurologically stable, deficits include left hemiplegia and left hemianopia. Underwent successful PEG placement yesterday and is tolerating tube feeds. MRI brain showed abscess versus meningocele versus hematoma. Neurosurgery favors hematoma. She is nearing being medically ready for discharge to SNF. 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 - Continue Amlodipine 5mg daily - Continue diltiazem 90mg q6 #Pulm - - goal SpO2> 94% - O2 as needed - nebs PRN #GI - >dysphagia - follow up [employer] recs - No diet orders on file - maintain bowel reg - GI ppx-protonix 40mg - PEG tube placed 10/04 #FEN/ - - maintain euvolemia, I=O - Goal Na 135-145, K > 4, Mg > 1 # Heme - - goal Hgb > 7, INR < 1.5, Platelets > 50k - DVT ppx: Lovenox, SCDs # Endo - - goal glucose 120-180 --> ISS Recent Labs 09/17/24 0039 05/06/24 0548 HA1C 6.1* 6.0* # ID - > Leukocytosis > Pneumonia > Respiratory Distress, resolved - for temp > 38C --> UA, CXR, blood cx, sputum cx - tylenol PRN - repeat CXR 09/29 - Completed Zosyn (09/24 - 09/29) - CBC - ID consult - C. Diff negative # Other - Activity: as tolerated - Dispo: Shelter facility - Last BM: Last Bowel Movement: 10/04/24 - code status: Attempt Cardiopulmonary Resuscitation - Inpatient Patient Lines/Drains/Airways Status Active Tubes/Lines/Drains Name Placement date Placement time Site Days PIV 10/04/24 1704 22 gauge;1.75 in length cephalic vein (lateral side of arm), right 10/04/24 1704 -- 1 Enterostomy Tube 10/04/24 1236 gastrostomy tube with balloon midline 10/04/24 1236 -- 1 Urethral Catheter 10/02/24 0315 14 10/02/24 0315 -- 3 Fecal Incontinence Certified Tumor Registrar 10/02/24 1208 10/02/24 1208 -- 3 Please page Vascular Neurology with any questions, #[phone] Anitra Ruiz DO Department [place] [address] Associated attestation - Karli Morales MD - 10/05/2024 8:54 PM EST Neurology Staff Note I have reviewed the resident's history during the visit and I agree with the details as written. Myphysical examination confirms the resident's findings. The assessment and plan were formulated in discussion with me at the time of the visit and I agree with them as documented. * Delia Ulrich RN - 10/04/2024 2:04 PM EST SP G-tube in IR Unchanged neuro status Eyes wide open covered gently with moist washcloth reoriented to time and place Left sided neglect moving right leg freely Dressing dry and intact Report to RN NISCU transported with RN's back to NSCU * Agustin Loving PA - 10/04/2024 11:16 AM EST Patient has continued leakage from prior drain site. Area identified and cleaned with chlorhexidine. Figure 8 prolene suture/stitch placed across area, bottom posterior/left area did pull somewhat through the tissue however it did close well. A single interrupted suture was used to close the posterior portion. It was then cleaned after with a swab. Inspected later, no evidence of continued drainage. * Hortencia Matta, PT - 10/04/2024 10:25 AM EST Physical Therapy Note Treatment Number PT: 5 Patient profile: Lucero Bruno ( ) is a 74 y.o. 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 Interval History: transferred to step-down unit . Suture placed from prior drain site due to leaking 10/04/24. Taken to IR for planned percutaneous gastrostomy tube (PEG) Social History: per previous hospitalization 04/2024 Patient reports she lives alone with her two cats in a 2 level home with a basement. Patient reports her needs are met on the main level, including laundry. Pt has a significant other and a son in the area. Her bathroom includes a tub shower with grab bars. Residence has 2 small ZAIN. At her baseline, patient is independent in all aspects. 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 Patient reports she enjoys her 1/2 acre of flower beds. Falls: None Precautions/Special Considerations: at risk to fall, SBP 90-160, MAP>65 Lines: PIV, tele, central line, hill catheter, DHT, flexiseal, nasal cannula Activity Orders: AAT Diet: NPO Mobility and Positioning Recommendations: [facility] with [facility]. Please encourage up to chair for meal times as able. Subjective: communicates via gestures, waves and gives thumbs up, nods head. Objective: Patient seen for physical therapy and demonstrated the following: Pain: Endorses pain in L shoulder, RN going to give her tylenol, L UE positioned on pillows. Vital Signs: HR=61 SpO2=98% 2 L O2 nc UJ=823/74 (93) Cognition/Vision: alert, follows commands in R side, answers yes/no with gestures/head nod. Bed Mobility: Supine >< Sit: max assist x2 with HOB elevated to L side, sat EOB 8-10 min working on balanceand exercises. Transfers: Sit > Stand from EOB: Max A x 2 Bed to Chair: mech lift Gait: unable , L hemiparesis. Balance: Sitting Static: poor, requires mod-max assist for seated balance, impaired righting reactions, ableto hold head up today. Therex: Sitting EOB-performed R LAQ & tried self assist LAQ on L by hooking @ ankles, Lateral leans L><R and coming back to midline, leaning forwards to reach feet and sitting back upright,head turns with trunk rotation (assisted), washed her face, tried standing @ bedside once. Education: Pt educated safety, role of therapy, and importance of mobility with staff assistance. She may require ongoing reinforcement. Pt left in bed with L UE propped on pillows with bed alarm on following visit. RN and SALESPERSON FLOOR COVERINGS in room @end of therapy session. Assessment: Lucero Bruno was seen today for physical therapy treatment session for continuation of POC. She was very agreeable to sit EOB required 2 assist, tolerated sitting up towards 10 min'sand performed ex's while EOB encouraging her to scan to her L and use R side to self-assist L. Performed trunk ex's such as flex/ext, rotation, and lateral leaning along with scanning with head/eyes.Continue to progress activity but significantly below her baseline of living alone and driving and recommend d/c to SNF once medically ready. Pt will benefit from ongoing therapeutic interventions to achieve therapy goals. Discharge Recommendations: Based on the current findings, Anticipated Discharge Disposition (PT): jail facility when medically ready for hospital discharge. Discharge recommendation is based on the patient's current physical impairments, prior functional status, potential to return to prior level of function, patient motivation, reported home support, potential for functional gains, current level of endurance, reported home environment and anticipated trajectory of progress and may change based on patient progress during this hospitalization. Consult Recommendations: No other consults recommended at this time. Equipment needs: Anticipated Equipment Needs at Discharge (PT): to be determined Goals: To be achieved by 10/13/24: ONGOING Pt. to demonstrate knowledge of safety limitations and precautions and will appropriately request assistance for functional activities and to mobilize. Pt. to perform bed mobility with mod A. Pt will maintain seated balance at EOB with min A x5 mins. Pt. Will tolerate mech lift OOB to recliner chair. Family or caregiver to demonstrate understanding of therapeutic interventions to support the care of the patient. Pt will tolerate progression towards upright with stable vital signs. Plan: Therapy Frequency (PT): 2-3 times/wk for therapy interventions as outlined in initial evaluation. Patient agrees with plan as stated. Time IN / OUT: 09:55-10:25 Total Minutes, Physical Therapy: 30 (TE-F x 2) Hortencia Matta PT Pager: [phone] Physical Therapy Inpatient Rehabilitation Department * Lucie Caldera, OT - 10/04/2024 9:50 AM EST Occupational Therapy Treatment Note Treatment Number OT: 4 Patient Dx: Lucero Bruno is a 74 y.o. female admitted on 09/16/2024. 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 Presents to OT for evaluation of functional activity. Social History: per chart review Home Setup: Pt lives in a multi story home with all needs met on one level. Pt has a tub shower with grab bars. Social support: Pt lives alone. Pt has a significant other and a son in the area. Pt lives with her two cats Jose A and Whoolio DME: Cane Tub grab bar Baseline ADL/Mobility: Pt was independent at baseline with use of cane. 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 Pt has a 1/2 acre of flower beds. Interval History: (per Neurosurgery note on 10/04/24) -NPO for PEG -New drainage noted at previous AUBREY site, saturating pillows, incision cdi -HCT with small fluid collection -WBC downtrending, afebrile Precautions/Special Considerations: Falls, supplemental O2 via NC, NPO, NGT, hill, AAT, SBP 90-160, full code Patient Lines/Drains/Airways Status Active Tubes/Lines/Drains Name Placement date Placement time Site Days Percutaneous Central Line 09/17/24 1405 Triple Lumen subclavian vein, right 09/17/24 1405 no documentation 17 Enterostomy Tube 10/04/24 1236 gastrostomy tube with balloon midline 10/04/24 1236 no documentationless than 1 Urethral Catheter 10/02/24 0315 14 10/02/24 0315 no documentation 2 Naso/Oral Tube 09/18/24 1229 small bore;nonweighted right nostril 09/18/24 1229 right nostril 16 Fecal Incontinence Certified Tumor Registrar 10/02/24 1208 10/02/24 1208 no documentation 2 Activity Orders: Activity Orders (From admission to next 72h) Start Ordered Unscheduled Activity as tolerated PRN 09/16/24 2205 Unscheduled Up with assistance PRN 10/24/24 2205 S: Pt received supine, asleep but easily woken and agreeable to participation. O: Patient seen for skilled OT treatment, and demonstrated the following: Self-care/Functional Mobility: Dependent to don socks in supine Supine to sit: max assist x 2 with HOB elevated Pt able to sit EOB for ~7-8 minutes with mod-max assist to maintain dynamic and static seated balance Set-up assist to wash face using RUE Max A x 2 to perform L and R lateral leaning exercises Max A x 2 to perform forward leaning exercises Sit to supine: max assist x 2 with HOB elevated Dependent to roll to L and R side for linen change Dependent for incontinence care while side lying Dependent to boost to HOB and position to R side OOB mobility deferred as pt is scheduled to leave floor for PEG placement this morning Cognition: Behavior / Mood: alert, cooperative, confused, and impaired task initiation Alert and oriented to: person and place Follows commands: 1 step and 2 step Attention: difficulty attending to task/directions Safety awareness: decreased insight into deficits Vision: Unable to track past midline on L side on command but able to track therapist in room R gaze preference L inattention Communication Thumbs up vs down Nod yes/no gestures Vitals: HR: 60s at rest, 80s with activity SpO2: 99% on 2L NC BP: 118/52 (78) and 104/6 (73), 138/74 (93) sitting EOB Strength/ROM: Cervical ROM:decreased L RUE elbow/hand full ROM, RUE shoulder flexion AAROM LUE full PROM, no AROM, subluxed shoulder, positioned on pillow Pain: reported some pain in L shoulder with PROM Education: Pt education ongoing regarding: Role of Occupational Therapy, Reorientation, Range of motion , Exercises , Activity tolerance, Positioning, Safety during ADL's and functional mobility , Alternating rest/activity , Increased participation in self-care and ADL's within hospital environment, Use of AE, DME recommendations , L inattention , and Goals Staff Communication: Handoff given to RN including pt's location, pain, and pertinent information at cessation of session. ASSESSMENT: Pt seen this morning for OT treatment session in conjunction with PT for pt safety and clinical support. Pt tolerated sitting EOB for several minutes to work on trunk control exercises aswell as visual scanning exercises. She is able to complete minimal grooming tasks in supported sitting but is dependent for all other self-care at this time. Pt is able to communicate using gestures, nods and thumbs up/down. Pt is well below her baseline functional status. Continue to recommend shebe discharged to SNF when she is medically ready. Pt will benefit from ongoing therapeutic interventions to achieve pt's and therapy goals. Anticipated Discharge Disposition (OT): jail facility Equipment Recommendations: Equipment Needs Upon Discharge (OT): to be determined Daily schedule / Staff Recommendations: EPM Level 2: Bed-Chair position, Mechanically lift to chair, Participate in self care Utilize upright chair position using bed features or transfer to recliner chair as appropriate withlift Frequent orientation verbally & visually with calendars/clocks/whiteboard Facilitate a normal sleep-wake cycle (minimize nighttime distractions when possible, lights on/shades up during the day) Provide brief, clear instructions and directions from one source at a time Reduce extraneous stimulation Encourage use of coping & calming strategies Support LUE on pillow of in sling Occupational Therapy Goals: To be achieved by 10/21/24. All goals extended on 10/04/24 and remain ongoing. Pt will be consistently A&Ox4 and CAM (-) Pt will complete UBD with min A using compensatory strategies/LRAD prn. Pt will complete UB bathing with min A using compensatory strategies/LRAD prn. Pt will complete 2-3 grooming tasks at in supported sitting with set up A. Pt will complete BUE HEP to improve functional use of ADLs Therapy Frequency (OT): 2-3 times/wk Total Minutes, Occupational Therapy: 37 (09:50-10:27 SCx2) Lucie Caldera OTR/L Occupational Therapy Rehabilitation Department Pager # [phone] * Crys Suarez MD - 10/04/2024 9:00 AM EST [facility] NEUROSURGERY PROGRESS NOTE ID: Lucero Bruno 74 y.o. female : 1950 LOS: 18 Neurosurgical Procedures this Admission: 09/16/24, Dr. Espinal: Mary craniotomy for IPH evacuation INTERVAL Hx: -NPO for PEG -New drainage noted at previous AUBREY site, saturating pillows, incision cdi -HCT with small fluid collection -WBC downtrending, afebrile MEDICATIONS: Scheduled Meds: pantoprazole 40 mg Intravenous Daily enoxaparin 40 mg Subcutaneous Nightly amLODIPine 5 mg Per NG tube Daily insulin lispro 0-3 Units Subcutaneous Q4H CARLY ipratropium-albuteroL 3 mL Nebulization Q4H insulin lispro 2-12 Units Subcutaneous Q4H CARLY dilTIAZem 90 mg Per NG tube Q6H CARLY multivitamin with minerals 1 tablet Per NG tube Daily Continuous Infusions: PRN: iohexoL, 0-200 mL, Once PRN glucose 40% oral geL, 15-30 g of glucose, Q15 Min PRN Or dextrose, 25 g, Q15 Min PRN Or glucagon, 1 mg, Q15 Min PRN iohexoL, 0-200 mL, Once PRN ondansetron, 4 mg, Q8H PRN docusate sodium, 100 mg, BID PRN And sennosides, 17.6 mg, BID PRN polyethylene glycoL (MIRALAX) oral powder, 17 g, Daily PRN labetaloL, 20 mg, Q4H PRN acetaminophen, 975 mg, Q6H PRN sodium chloride, 4 mL, Q6H PRN potassium chloride ER, 40 mEq, Q4H PRN Or potassium chloride ER, 20 mEq, Q4H PRN bisacodyL, 10 mg, Daily PRN bacitracin zinc-polymyxin B, , PRN gelatin compressed, , PRN thrombin (Bovine), , PRN EXAM: Temp: [36.6 ??C (97.8 ??F)-37 ??C (98.6 ??F)] Heart Rate: [61-99] Resp: [14-23] BP: (102-157)/(39-88) SpO2: [84 %-100 %] Heart Rate from SpO2: [61 bpm-99 bpm] I/O: Intake/Output Summary (Last 24 hours) at 10/04/2024 0449 Last data filed at 10/04/2024 0400 Gross per 24 hour Intake 1939.5 ml Output 1750 ml Net 189.5 ml Drains: AUBREY out 09/21 GEN: asleep in bed, awakens easily to voice NEURO: R pupil 3mm, reactive L pupil 4mm R gaze preference, does not come to midline MOTOR: RUE: FC, thumbs up LUE: withdraws to noxious stimuli RLE: FC, wiggles toes LLE: flicker wiggles toes to command L hemianesthesia Incision CDI, stacey out AUBREY site with SS drainage, saturating mepilex with strikethrough LABS: Recent Labs 10/04/242810/03/2440410/02/24 014 WBC 14.67* 15.33* 19.16* HGB 10.4* 10.5* 10.1* PLATELET 303 359* 399* Recent Labs 10/04/242810/03/2440410/02/24 014 NA 142 146* 146* K 4.1 4.0 3.6 CL 106 108* 108* CO2 26 30 28 BUN 24* 22* 27* CREATININE 0.36* 0.35* 0.39* No results for input(s): PT, INR in the last 72 hours. IMAGING: Results for orders placed or performed during the hospital encounter of 09/16/24 CT Head wo Contrast (Generic) (Exam End: 09/16/2024 5:26 PM) Result Value WORKSTATION ID [id number] Impression Interval expansion of now large right-sided temporal occipital intraparenchymal hemorrhage with significant mass effect resulting in 1 cm leftward midline shift. Per chart review, this patient was seen by neurosurgery and taken emergently to the OR. I have personally reviewed the image(s) and the resident's interpretation and agree with the findings, Lana Reinoso at 09/16/2024 6:01 PM Thank you for letting us participate in the care of this patient. If you are a health care provider and have any questions regarding this report, please contact the number below. For patients who have questions please contact the health ocular care technician that requested your imaging first. Electronically signed by: Lana Reinoso [facility] ([phone]), at 09/16/2024 6:[address] Head wo Contrast (Generic) (Exam End: 09/16/2024 11:21 PM) Result Value WORKSTATION ID [id number] Impression CT head: 1. Interval craniotomy with residual or recurrent hemorrhage right temporal and parietal lobe. 2. New hemorrhage right [...] in the care of this patient. If you are a health care provider and have any questions regarding this report, please contact the number below. For patients who have questions please contact the health ocular care technician that requested your imaging first. Electronically signed by: rAmando Pan MD, [facility] ([phone]), at 09/17/2024 1:[address] Venogram Brain (Exam End: 09/16/2024 11:21 PM) Result Value WORKSTATION ID [id number] Impression CT head: 1. Interval craniotomy with residual or recurrent hemorrhage right temporal and parietal lobe. 2. New hemorrhage right [...] in the care of this patient. If you are a health care provider and have any questions regarding this report, please contact the number below. For patients who have questions please contact the health ocular care technician that requested your imaging first. Electronically signed by: Armando Pan MD, [facility] ([phone]), at 09/17/2024 1:42 AM XR Chest One View (Exam End: 09/16/2024 11:00 PM) Result Value WORKSTATION ID [id number] Impression Satisfactorily positioned enteric and endotracheal tubes. Left lower lobe atelectasis versus pneumonia. Thank you for letting us participate in the care of this patient. If you are a health care provider and have any questions regarding this report, please contact the number below. For patients who have questions please contact the health ocular care technician that requested your imaging first. Electronically signed by: Pamela Beard MD, [facility] ([phone]), at 09/17/2024 12:09 AM XR Abdomen 1 view (Generic) (Exam End: 09/16/2024 11:00 PM) Result Value WORKSTATION ID [id number] Impression Satisfactorily positioned enteric and endotracheal tubes. Left lower lobe atelectasis versus pneumonia. Thank you for letting us participate in the care of this patient. If you are a health care provider and have any questions regarding this report, please contact the number below. For patients who have questions please contact the health ocular care technician that requested your imaging first. Electronically signed by: Pamela Beard MD, [facility] ([phone]), at 09/17/2024 12:[address] Head wo Contrast (Generic) (Exam End: 09/17/2024 4:51 AM) Result Value WORKSTATION ID [id number] Impression Increased size and density of dominant right parietal hematoma, and of hemorrhage extending medially into the basal ganglia. Foci of thalamocapsular hemorrhage on the right are stable. No evidence of progressive intraventricular hemorrhage or ventricular dilation. No definitive increase in leftward midline shift or herniation. Thank you for letting us participate in the care of this patient. If you are a health care provider and have any questions regarding this report, please contact the number below. For patients who have questions please contact the health ocular care technician that requested your imaging first. Electronically signed by: Elvin Bolden DO, [facility] ([phone]), at 09/17/2024 8:38 AM XR Chest One View (Exam End: 09/17/2024 2:13 PM) Result Value WORKSTATION ID [id number] Impression 1. No focal opacity in lung 2. Pulmonary edema, progressed since last examination. 3. Tip of ET tube is 23 mm superior cuff to jonathan. Consider adjustment. 4. Sidehole and tip of NG tube is below the diaphragm. Thank you for letting us participate in the care of this patient. If you are a health care provider and have any questions regarding this report, please contact the number below. For patients who have questions please contact the health ocular care technician that requested your imaging first. Electronically signed by: Zoey Zabala MD, [facility] ([phone]), at 09/17/2024 2:43 PM XR Chest One View (Exam End: 09/18/2024 8:43 AM) Result Value WORKSTATION ID [id number] Impression Tubes and lines as described. Blunting of the left costophrenic angle suggests tiny layering left effusion with associated left basilar consolidation/atelectasis Thank you for letting us participate in the care of this patient. If you are a health care provider and have any questions regarding this report, please contact the number below. For patients who have questions please contact the health ocular care technician that requested your imaging first. Abdomen 1 view (Generic) (Exam End: 09/18/2024 12:31 PM) Result Value WORKSTATION ID [id number] Impression Dobbhoff tube tip along the greater curve of the stomach. Thank you for letting us participate in the care of this patient. If you are a health care provider and have any questions regarding this report, please contact the number below. For patients who have questions please contact the health ocular care technician that requested your imaging first. Brain wwo Contrast (Generic) (Exam End: 09/19/2024 5:43 PM) Result Value WORKSTATION ID [id number] Impression Unchanged size of large right cerebral hemisphere ICH status post partial evacuation. Numerous small foci of decreased acute infarction both along and separate from the site of hemorrhage. These foci are present in both cerebral hemispheres and have a pattern most consistent with embolic infarction. No evidence of AUTOMOBILE DESIGNER malignancy Thank you for letting us participate in the care of this patient. If you are a health care provider and have any questions regarding this report, please contact the number below. For patients who have questions please contact the health ocular care technician that requested your imaging first. Electronically signed by: Rios Swartz MD, [facility] ([phone]), at 09/20/2024 8:[address] Head wo Contrast (Generic) (Exam End: 09/21/2024 3:50 AM) Result Value WORKSTATION ID [id number] Impression Stable hemorrhage right temporal, parietal, right posterior limb internal capsule and right thalamus. Mild progression of vasogenic edema adjacent to hemorrhage. Similar pattern and extent of local and generalized mass effect with stable subfalcine herniation and uncal herniation. Thank you for letting us participate in the care of this patient. If you are a health care provider and have any questions regarding this report, please contact the number below. For patients who have questions please contact the health ocular care technician that requested your imaging first. Electronically signed by: Armando Pan MD, [facility] ([phone]), at 09/21/2024 4:55 AM XR Abdomen 1 view (Generic) (Exam End: 09/21/2024 2:01 PM) Result Value WORKSTATION ID [id number] Impression Dobbhoff tube and enteric tube sidehole and tip is projecting over the expected location of the stomach. I have personally reviewed the image(s) and the resident's interpretation and agree with the findings, Shraddha Cox MD at 09/21/2024 3:40 PM Thank you for letting us participate in the care of this patient. If you are a health care provider and have any questions regarding this report, please contact the number below. For patients who have questions please contact the health ocular care technician that requested your imaging first. Electronically signed by: Shraddha Cox MD, [facility] ([phone]), at 09/21/2024 3:40 PM XR Chest One View (Exam End: 09/21/2024 2:01 PM) Result Value WORKSTATION ID [id number] Impression ET tube with tip projecting approximately 1.4 cm above the jonathan. Recommend retracting approximately 2 cm and follow-up imaging. New left basilar atelectasis and/or small pleural effusion. Aspiration or pneumonia could also this appearance. I Sacha Shipley MD discussed the results (Impression #1) with Bonnie George on 09/21/2024 4:42 PM and verified that the results were understood. I have personally reviewed the image(s) and the resident's interpretation and agree with the findings, Octavio Scott MD at 09/21/2024 5:09 PM Thank you for letting us participate in the care of this patient. If you are a health care provider and have any questions regarding this report, please contact the number below. For patients who have questions please contact the health ocular care technician that requested your imaging first. Electronically signed by: Octavio Scott MD, [facility] ([phone]), at 09/21/2024 5:[address] Head wo Contrast (Generic) (Exam End: 09/22/2024 4:02 AM) Result Value WORKSTATION ID [id number] Impression Stable head CT status post removal of subcutaneous drain. No new or enlarging hemorrhage. Stable pattern of mass effect Thank you for letting us participate in the care of this patient. If you are a health care provider and have any questions regarding this report, please contact the number below. For patients who have questions please contact the health ocular care technician that requested your imaging first. Electronically signed by: Armando Pan MD, [facility] ([phone]), at 09/22/2024 4:[address] Angiogram Chest for Pulmonary Embolus w Contrast (Exam End: 09/26/2024 1:37 PM) Result Value WORKSTATION ID [id number] Impression 1. No pulmonary embolism. 2. Pulmonary edema. 3. Bibasilar atelectasis. Superimposed patchy airspace opacity in the left lower lobe may represent atelectasis versus pneumonia. 4. Mild emphysema. 5. Mild cardiomegaly. Left atrial appendage occlusion device in situ. Mild multifocal coronary atherosclerosis. Correlation with echocardiography may be of benefit. 6. Unexpected Findin mm indeterminant left adrenal nodule. Per ACR white paper guidelines, follow-up CT of the Abdomen (Adrenal protocol - without and with intravenous contrast) is recommended in one year. 7. Mild sigmoid diverticulosis coli without secondary signs of acute diverticulitis. 8. Interval development of anasarca, which may be related to hypervolemia, hypoproteinemia, or combination thereof. 9. Endotracheal catheter in situ with tip 4 mm above the jonathan. Recommend retraction. 10. Enteric catheter in situ with tip terminating in the gastric pylorus. 11. Hill catheter in situ. Persistent distention of the urinary bladder. Correlation with catheter functionality is recommended. 12. Rectal catheter in situ. Thank you for letting us participate in the care of this patient. If you are a health care provider and have any questions regarding this report, please contact the number below. For patients who have questions please contact the health ocular care technician that requested your imaging first. Electronically signed by: Marvin Decker DO, [facility] ([phone]), at 09/26/2024 1:[address] Head wo Contrast (Generic) (Exam End: 09/26/2024 1:37 PM) Result Value WORKSTATION ID [id number] Impression 1. Stable right-sided parenchymal and subdural hemorrhages, associated mass effect and midline shift. 2. Stable left intraventricular hemorrhage. 3. No new or enlarging hemorrhages or extra-axial collections. Thank you for letting us participate in the care of this patient. If you are a health care provider and have any questions regarding this report, please contact the number below. For patients who have questions please contact the health ocular care technician that requested your imaging first. Electronically signed by: Smiley Cordova MD, [facility] ([phone]), at 09/26/2024 2:[address] Abdomen & Pelvis w Contrast (Exam End: 09/26/2024 1:37 PM) Result Value WORKSTATION ID [id number] Impression 1. No pulmonary embolism. 2. Pulmonary edema. 3. Bibasilar atelectasis. Superimposed patchy airspace opacity in the left lower lobe may represent atelectasis versus pneumonia. 4. Mild emphysema. 5. Mild cardiomegaly. Left atrial appendage occlusion device in situ. Mild multifocal coronary atherosclerosis. Correlation with echocardiography may be of benefit. 6. Unexpected Findin mm indeterminant left adrenal nodule. Per ACR white paper guidelines, follow-up CT of the Abdomen (Adrenal protocol - without and with intravenous contrast) is recommended in one year. 7. Mild sigmoid diverticulosis coli without secondary signs of acute diverticulitis. 8. Interval development of anasarca, which may be related to hypervolemia, hypoproteinemia, or combination thereof. 9. Endotracheal catheter in situ with tip 4 mm above the jonathan. Recommend retraction. 10. Enteric catheter in situ with tip terminating in the gastric pylorus. 11. Hill catheter in situ. Persistent distention of the urinary bladder. Correlation with catheter functionality is recommended. 12. Rectal catheter in situ. Thank you for letting us participate in the care of this patient. If you are a health care provider and have any questions regarding this report, please contact the number below. For patients who have questions please contact the health ocular care technician that requested your imaging first. Chest One View (Exam End: 09/28/2024 4:06 AM) Result Value WORKSTATION ID [id number] Impression 1. Limited examination. 2. Interval removal of the endotracheal catheter. 3. Stable position of other medical hardware. 4. Decreased but persistent patchy left retrocardiac airspace opacity, may be resolving atelectasis or pneumonia. Thank you for letting us participate in the care of this patient. If you are a health care provider and have any questions regarding this report, please contact the number below. For patients who have questions please contact the health ocular care technician that requested your imaging first. Electronically signed by: Marvin Decker DO, [facility] ([phone]), at 09/28/2024 4:12 AM XR Chest One View (Exam End: 09/28/2024 7:58 PM) Result Value WORKSTATION ID [id number] Impression 1. Slightly increased opacity in the left lower lung which may be due to atelectasis, aspiration or pneumonia. 2. Small bilateral pleural effusions. Thank you for letting us participate in the care of this patient. If you are a health care provider and have any questions regarding this report, please contact the number below. For patients who have questions please contact the health ocular care technician that requested your imaging first. Electronically signed by: Sammy Story MD, [facility] ([phone]), at 09/28/2024 8:09 PM XR Chest One View (Exam End: 09/29/2024 1:13 PM) Result Value WORKSTATION ID [id number] Impression 1. Limited examination. 2. Stable position of medical hardware. 3. The lung volumes are decreased, which accentuates the pulmonary vascular markings and cardiac silhouette. 4. Accounting for this, a stable mild component of congestive heart failure / fluid overload is suspected. 5. Stable moderate cardiomegaly. 6. Possible inferior subluxation of the left humerus. Correlation with patient symptomatology is recommended. If clinically indicated, further evaluation with dedicated left shoulder radiographs can be obtained. Thank you for letting us participate in the care of this patient. If you are a health care provider and have any questions regarding this report, please contact the number below. For patients who have questions please contact the health ocular care technician that requested your imaging first. Electronically signed by: Marvin Decker DO, [facility] ([phone]), at 09/30/2024 12:[address] Head wo Contrast (Generic) (Exam End: 10/04/2024 1:40 AM) Result Value WORKSTATION ID [id number] Impression 1. Overall interval improvement of the mass effect on the right hemisphere with evolution of blood products within the parenchyma post craniotomy. 2. Mild interval increase in extra-axial fluid inferior margin of the craniotomy. 3. Mild interval increase in size of third and lateral ventricles as well as peripheral CSF spaces 4. No new hemorrhage or infarction Thank you for letting us participate in the care of this patient. If you are a health care provider and have any questions regarding this report, please contact the number below. For patients who have questions please contact the health ocular care technician that requested your imaging first. Electronically signed by: Armando Pan MD, [facility] ([phone]), at 10/04/2024 2:12 AM Assessment: 74 y.o. female with PMHx notable for Afib (taking ASA, previously on apixaban-stopped taking after IPH in April 2024), CHRISTOPHER, HLD, BMI of 36, prior IPH 04/2024 who presented to hospital 09/16/24 for placement of Watchman with cardiology. She developed headaches and nausea post op and CT scan noted large R [id number] IPH. Now s/p R craniotomy for IPH evacuation. Repeated CTH wo contrast post-op overnight into 09/17 showing increased hemorrhage on R but exam remains stable. Will defer further neurosurgical intervention at this time and continue to closely monitor exam. 09/18 AM noted L eye down, possible out. MRI Brain wwo on 09/19 showing small scattered infarcts c/w embolic infarcts not that would explain possible palsy. 10/04, new drainage noted to pillow with AUBREY site expressing SS fluid. No fevers or concerning WBC. HCT with small fluid collection. Pending PEG placement. Plan: -Stitch to site of AUBREY -MRI Brain wwo -Rest of care per primary -f/u in 1 mos w/ CTH in clinic with JESSI For questions please call NSGY pager [phone] Crys Suarez MD Clinical Documentation Improvement: Active Hospital Problems Diagnosis Right occipital hemorrhage with associated vassogenic edema, anticoagulation associated, probableCAA Severe protein-calorie malnutrition Presence of Watchman left atrial appendage closure device S/P craniotomy Resolved Hospital Problems No resolved problems to display. * Areli Hathaway SLP - 10/04/2024 8:57 AM EST Speech Pathology Contact Note Chart reviewed. Patient is currently NPO for planned PEG placement. We will follow up on next treatment date as schedule allows. Please secure chat with questions, thanks! Areli Hathaway MS, [facility] Speech-Language Pathologist Inpatient Rehabilitation Pager # [phone] * Sol Hazel RD - 10/04/2024 7:45 AM EST Nutrition Progress Note Lucero Bruno is a 74 y.o. female with PMHx RIGHT occipital hemorrhage, chronic a-fib presentedfor watchman procedure. Patient developed headache after procedure and was taken to CT where she was found to have RIGHT IPH with mass effect and midline shift s/p craniotomy. 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 Course complicated by dysphagia requiring PEG tube placement. Interval History No data found. Reason for Assessment: Follow-up, Tube Feeding Nutrition Recommendations: NPO per [facility] [facility] [facility] 09/30 PEG placement planned for today 10/04. Continue TF and limit holds as able. Enteral Nutrition: Nutren 1.5 with a goal rate of 40 ml per hour plus 6 scoops protein powder per day. At goal, this will provide: Nutren 1.5 Total Volume Per Day: 960 mL Scoops of Protein: 6 Calories per Day: 1590 Protein per Day: 101 g Free Water mL per Day: 1033 % RDI: 96 % Monitor hydration status on above TFs as they are concentrated. Pt may need additional fluids depending on IVFs, med flushes, etc. Daily BMP w/ mag and phos Monitor lytes - replete as indicated Continue MVI Goal of 1 BM per 24-48 hrs on EN Goal BG <180 Daily Weights Pt meets criteria for severe protein calorie malnutrition as outlined below. Meet the following enteral nutrition (EN) milestones to be nutritionally ready for discharge: []Patient is tolerating goal volume and schedule (cycle/bolus) of enteral regimen []Electrolytes and blood sugars have been stable x 48 hours with goal regimen []Has not required IV fluids for hydration x 48 hours []Patient or capable caregiver has received education regarding home tube feeds []Home enteral regimen has been reviewed for errors and potential barriers to insurance coverage []Identification of a provider to manage enteral nutrition outside of the hospital []Delivery of enteral formula and supplies is scheduled Patient IS NOT nutritionally ready for discharge Details/recommendations for uncompleted steps: feeds not at goal, need for detention nutrition planif unable to advance diet Current Nutrition Regimen: Active Orders Diet NPO diet (Give Meds) Frequency: Effective Midnight Number of Occurrences: Until Specified All Active TF Orders: Tubefeeding Orders (From admission, onward) Start Dose/Rate Route Frequency Ordered Stop 10/02/24 1130 tube feeding diet 960 mL Per NG tube CONTINUOUS 10/02/24 1037 10/03/24 2359 Average tube feeding provision over past 3 days; 601 mL vs daily goal volume of 1200 mL formula (50% of goal); per I/O's. Average protein powder provision over the past 3 days; 6 scoops vs daily goal of 6 scoops (100% of goal) Tolerance or barriers to meeting needs: holds; NPO today for PEG placement Assessment: Lab Results Component Value Date NA 142 10/04/2024 NA 141 05/08/2024 K 4.1 10/04/2024 K 4.2 05/08/2024 CL 106 10/04/2024 CL 105 05/08/2024 CO2 26 10/04/2024 CO2 25 05/08/2024 BUN 24 (H) 10/04/2024 BUN 14 05/08/2024 CREATININE 0.36 (L) 10/04/2024 CREATININE 0.68 (L) 05/08/2024 ESTGFR 108 10/04/2024 ESTGFR 92 05/08/2024 MAGNESIUM 0.80 10/04/2024 MAGNESIUM 0.85 05/08/2024 CALCIUM 8.9 10/04/2024 CALCIUM 9.2 05/08/2024 PHOS 2.6 10/04/2024 PHOS 3.1 05/08/2024 AST 28 09/26/2024 AST 15 05/08/2024 ALT 72 (H) 09/26/2024 ALT 14 05/08/2024 ALKPHOS 81 09/26/2024 ALKPHOS 92 05/08/2024 BILITOT 0.4 09/26/2024 BILITOT 0.4 05/08/2024 BILIDIR <0.2 09/26/2024 BILIDIR 0.1 05/08/2024 TRIG 95 09/20/2024 TRIG 101 05/06/2024 HA1C 6.1 (H) 09/17/2024 HA1C 6.0 (H) 05/06/2024 25OHVITD 38 11/14/2023 Lab Results Component Value Date POCGLU 102 10/04/2024 POCGLU 158 10/04/2024 POCGLU 180 10/03/2024 POCGLU 157 10/03/2024 POCGLU 149 10/03/2024 POCGLU 141 10/03/2024 Patient Lines/Drains/Airways Status Active Nutritional LDAs Name Placement date Placement time Site Days Naso/Oral Tube 09/18/24 1229 small bore;nonweighted right nostril 09/18/24 1229 right nostril 16 Percutaneous Central Line 09/17/24 1405 Triple Lumen subclavian vein, right 09/17/24 1405 -- 17 Urethral Catheter 10/02/24 0315 14 10/02/24 0315 -- 2 Fecal Incontinence Certified Tumor Registrar 10/02/24 1208 10/02/24 1208 -- 2 Oxygen Therapy / Airway Device: Nasal cannula Shift Pressure Injury Prevention Occiput: No Injury Thoracic Spine: No Injury Sacral: Redness, Blanchable Ischial - left: No Injury Ischial - right: No Injury Heel - left: No Injury Heel - right: No Injury Elbow - left: No Injury Elbow - right: No Injury Device Sites: BP Cuff, ECG Leads, flexiseal, hill, IV sites, O2 sat monitor, SCD's / venodynes EEG Skin Appearance: clean, dry, intact Other Sites: CVC Last Bowel Movement: 10/03/24 Intake/Output Summary (Last 24 hours) at 10/04/2024 0745 Last data filed at 10/04/2024 0600 Gross per 24 hour Intake 2059.5 ml Output 1850 ml Net 209.5 ml Relevant medications: Lispro Thera M Protonix Zofran PRN Anthropometrics: Admit Weight: 88.45 kg Estimated body mass index is 34.14 kg/m?? as calculated from the following: Height as of 09/21/24: 152.4 cm (5'). Weight as of this encounter: 79.3 kg (174 lb 12.8 oz). [place] Body Weight (IBW) (kg): 45.45 Wt Readings from Last 10 Encounters: 10/04/24 79.3 kg (174 lb 12.8 oz) 09/21/24 91.3 kg (201 lb 4.5 oz) 09/18/24 91.5 kg (201 lb 11.5 oz) 07/28/24 85.3 kg (188 lb) 05/24/24 81.6 kg (180 lb) 05/08/24 84.1 kg (185 lb 6.4 oz) 05/08/24 82 kg (180 lb 12.4 oz) 04/23/24 83.9 kg (185 lb) 03/03/24 85 kg (187 lb 6.3 oz) 11/14/23 87.2 kg (192 lb 3.2 oz) Patient Vitals for the past 168 hrs: Weight 10/04/24 0600 79.3 kg (174 lb 12.8 oz) 10/03/24 0600 80.5 kg (177 lb 7.5 oz) 10/02/24 06 80.7 kg (178 lb) 10/01/24599 85.5 kg (188 lb 7.9 oz) 09/30/24599 84.4 kg (186 lb) 09/28/24599 85.4 kg (188 lb 4.4 oz) Weight Source: Bed Edema per flowsheets Date Grading 10/03 1+ bilateral ankles, 2+ generalized 10/01 1+ BLE, 2+ LUE Estimated / Assessed Needs: Kcal / K - 1597 Kcal (14 Kcal/Kg - 18 Kcal/Kg) Estimated Protein Needs: 91 g - 114 g (2.0 g/Kg - 2.5 g/Kg IBW) Nutrition intake and intake history / interview: 10/04: TF held at midnight last night for possible PEG placement today. Per chart, pt has lost additional 6.2kg (7.2%) since last nutrition assessment - lasix given on 10/01. LBM 10/03. Potassium and phosphorus now WNL without need for repletion since 10/01. 10/01: TF restarted 09/29 at 1645hr; currently running at 30mL/hr. Pt showing signs of refeeding per 10/01 labs (hypokalemia, hypophosphatemia); KCl repletion noted but . Some high BG noted 09/30 (229, 196, 207, 233); insulin regimen still adjusting for Pep VHP rather than Nutren 1.5, team aware. [employer] continues to recommend NPO per 09/30 note. LBM 09/29, optimize regimen. Per EMR, pt with 4% wt loss in <1 week (196lbs on 09/24 to 188lbs on 09/28) which is clinically significant. Unable to complete full NFPE at this time. Planned for upcoming PEG placement. 09/29: TF Dc'd 09/28 @ 1835hr. [employer] continues to recommend NPO, need for alternate nutrition. Updated TF recs pended as above. Pt now with <50% EER x 5 days, increasing risk for malnutrition. 09/27: TF off. Pressor off. Extubated, not cleared for PO intake. 09/23: TF held for possible extubation today, restarted this afternoon. Reassessed needs, TF recs updated. 09/21: Pt extubated and reintubated today, restarted on propofol. TF held. 09/17: Cx for TF recs. Per chart, wt has been fluctuating 82-89 kg x 10 months. Nutrition Focused Physical Exam: Performed (10/01 by MLS) Subcutaneous Fat Loss Orbital region: None present Upper arm region (triceps/biceps): None present Thoracic and Lumbar regions (ribs, lower back, and maxillary line): Not assessed Lean Muscle Loss Druze region (temporalis muscle): None present Clavicle bone region (pectoralis major): None present Dorsal hand (interosseous muscle): Not assessed (pt unable to engage muscle) Shoulder (deltoid): None present Scapular bone region (latissimus dorsi, trapezius muscles): Not assessed Thigh region (quadriceps muscle): Not assessed Posterior calf region (gastrocnemius muscle): Not assessed Malnutrition Diagnosis: Identified: less than or equal to 50% of estimated energy requirement for greater than or equal to 5 days and greater than 2% weight loss in 1 week is consistent with Severe protein-calorie malnutrition in the setting of acute illness or injury (Mari et al, JPEN J Parenteral Enteral Nutr. 2011; 36(3): 273-83) Nutrition to continue to follow up while inpatient Sol Hazel MS, RD, LD Clinical Nutrition * Gissell Velazco MD - 10/04/2024 6:40 AM EST Images from the original note were not included. VASCULAR NEUROLOGY DAILY PROGRESS NOTE Admit Date 09/16/2024 Responsible Attending: Gissell Velazco MD Primary Provider: Leila Manjarrez [phone] Hospital Day: Hospital Day: 19 Patient ID 74 y.o. female with PMHx RIGHT occipital hemorrhage, chronic a-fib presented for watchman procedure. Patient developed headache after procedure and was taken to CT where she was found to have RIGHT IPH with mass effect and midline shift s/p craniotomy. 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 Course complicated by dysphagia requiring PEG tube placement. 24hr Events: - no acute changes in medical management yesterday - CHAVEZ CARRASCO - NPO at [facility] for possible PEG today EXAM Last value Range last 24 hrs Temperature Temp: 37 ??C (98.6 ??F) Temp: [36.6 ??C (97.8 ??F)-37 ??C (98.6 ??F)] Heart Rate Heart Rate: 70 Heart Rate: [61-99] Blood Pressure BP: 122/62 BP: (102-157)/(39-88) Respiratory Rate Resp: 15 Resp: [14-23] SpO2 SpO2: 100 % SpO2: [84 %-100 %] GENERAL - Alert, awake, no verbal output CN - PERRL, right gaze preference, unable to cross midline to left. No blink to threat on left. MOTOR- LUE/LLE 0/5 RUE/RLE able to sustain gravity REFLEX - Babinski elicited strong withdrawal b/l SENSATION - intact sensation on right COORDINATION - FTN intact on RUE GAIT - not assessed DATA I/O last 3 completed shifts: In: 95 [P.O.:10; I.V.:15] Out: 3400 [Urine:3350; Stool:50] Labs Recent Labs 10/04/24 00210/03/24 0405 10/02/2414810/01/24 00209/30/24 014 WBC 14.67* 15.33* 19.16* 22.24* 25.89* HGB 10.4* 10.5* 10.1* 9.9* 10.1* HCT 32.8* 32.4* 31.1* 29.2* 31.0* PLATELET 303 359* 399* 370* 376* NEUTROABS 12.52* 13.43* 16.45* 20.01* 22.26* Recent Labs 10/04/24 0029 10/03/24 0405 10/02/24 01410/01/24 00209/30/24 014 NA 142 146* 146* 141 139 K 4.1 4.0 3.6 3.2* 3.9 CL 106 108* 108* 105 104 CO2 26 30 28 28 25 BUN 24* 22* 27* 23* 16 CREATININE 0.36* 0.35* 0.39* 0.43* 0.47* GLUCOSE 166 199 123 124 141 Recent Labs 10/04/24 0029 10/03/24 0405 10/02/24 0149 CALCIUM 8.9 9.1 8.7 MAGNESIUM 0.80 0.88 0.83 PHOS 2.6 2.7 2.9 No results for input(s): AST, ALT, ALKPHOS, BILITOT, BILIDIR, LDH in the last 168 hours. No results for input(s): TROPONINT, CK in the last 168 hours. No results for input(s): PHART, UNR2DNK, PO2ART, XST0SXE in the last 168 hours. No results for input(s): INR in the last 72 hours. Lipid Panel Lab Results Component Value Date CHLPL 203 09/17/2024 CHLPL 135 05/06/2024 HDL 45 09/17/2024 HDL 46 05/06/2024 TRIG 95 09/20/2024 TRIG 101 05/06/2024 LDLCHOL 69 05/06/2024 LDLDIRECT 133 09/17/2024 Lab Results Component Value Date HA1C 6.1 (H) 09/17/2024 Imaging/EKG 1. Overall interval improvement of the mass effect on the right hemisphere with evolution of blood products within the parenchyma post craniotomy. 2. Mild interval increase in extra-axial fluid inferior margin of the craniotomy. 3. Mild interval increase in size of third and lateral ventricles as well as peripheral CSF spaces 4. No new hemorrhage or infarction ASSESSMENT & PLAN Lucero Bruno 74 y.o. female with PMHx RIGHT occipital hemorrhage, chronic a-fib presented for watchman procedure. Patient developed headache after procedure and was taken to CT where she was found to have RIGHT IPH with mass effect and midline shift s/p craniotomy. 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 Course complicated by dysphagia requiring PEG tube placement. 10/04/24-Lucero Bruno is neurologically stable, deficits include left hemiplegia and left hemianopia. Overnight she had leakage from craniectomy site, neurosurgery following and requesting MRI. Plan to have PEG placed today. She is not MRI at this time and will need SNF placement. 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 - Continue Amlodipine 5mg daily - Continue diltiazem 90mg q6 #Pulm - - goal SpO2> 94% - O2 as needed - nebs PRN #GI - >dysphagia - follow up [employer] recs - NPO diet (Give Meds) - maintain bowel reg - GI ppx-protonix 40mg - pending PEG tube placement #FEN/ - - maintain euvolemia, I=O - Goal Na 135-145, K > 4, Mg > 1 # Heme - - goal Hgb > 7, INR < 1.5, Platelets > 50k - DVT ppx: Lovenox, SCDs # Endo - - goal glucose 120-180 --> ISS Recent Labs 09/17/24 0039 05/06/24 0548 HA1C 6.1* 6.0* # ID - > Leukocytosis > Pneumonia > Respiratory Distress, resolved - for temp > 38C --> UA, CXR, blood cx, sputum cx - tylenol PRN - repeat CXR 09/29 - Completed Zosyn (09/24 - 09/29) - CBC - ID consult - C. Diff negative # Other - Activity: as tolerated - Dispo: Shelter facility - Last BM: Last Bowel Movement: 10/03/24 - code status: Attempt Cardiopulmonary Resuscitation - Inpatient Patient Lines/Drains/Airways Status Active Tubes/Lines/Drains Name Placement date Placement time Site Days Percutaneous Central Line 09/17/24 1405 Triple Lumen subclavian vein, right 09/17/24 1405 -- 17 Urethral Catheter 10/02/24 0315 14 10/02/24 0315 -- 2 Naso/Oral Tube 09/18/24 1229 small bore;nonweighted right nostril 09/18/24 1229 right nostril 16 Fecal Incontinence Certified Tumor Registrar 10/02/24 1208 10/02/24 1208 -- 2 Please page Vascular Neurology with any questions, #[phone] Anitra Ruiz DO Department [place] [address] Neurology Attending Attestation I evaluated the patient with the Stroke Team during bedside rounds. I have reviewed the medical records and patient's history, as well as the resident???s history and examination findings and I agreewith the details as written. My neurologic examination confirms the resident???s findings. We formulated the assessment and plan after a detailed discussion, as documented. Gissell Velazco MD Vascular Neurology * Danielle Cosby RCP - 10/03/2024 10:08 AM EST 10/03/24 1000 10/03/24 1008 Oxygen Therapy O2 Device NC RA O2 Flow Rate (L/min) 2 L/min -- SpO2 99 % 98 % Resp 14 19 Pt weaned off oxygen this morning arlene well There was concern for increased oxygen requirements at nite Spoke with family Pt is supposed to wear NIV at nite, but refuses per family Pt doesn't like it Pt may just need Oxygen at nite RN aware * Clarisse Duke APRN - 10/03/2024 9:09 AM EST Images from the original note were not included. VASCULAR NEUROLOGY DAILY PROGRESS NOTE Admit Date 09/16/2024 Responsible Attending: Gissell Velazco MD Primary Provider: Leila Manjarrez [phone] Hospital Day: Hospital Day: 18 Patient ID 74 y.o. female with PMHx RIGHT occipital hemorrhage, chronic a-fib presented for watchman procedure. Patient developed headache after procedure and was taken to CT where she was found to have RIGHT IPH with mass effect and midline shift s/p craniotomy. 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 Course complicated by dysphagia requiring PEG tube placement. 24hr Events: - NAEON, VSS, afebrile - Leukocytosis continuing to trend down -Hold TF starting at midnight for possible PEG placement tomorrow - Boyfriend at bedside visiting -[facility] OK to give tonight per IR EXAM Last value Range last 24 hrs Temperature Temp: 36.6 ??C (97.8 ??F) Temp: [36.6 ??C (97.8 ??F)-37.1 ??C (98.8 ??F)] Heart Rate Heart Rate: 69 Heart Rate: [69-98] Blood Pressure BP: 132/88 BP: (123-154)/(41-88) Respiratory Rate Resp: 15 Resp: [15-21] SpO2 SpO2: (S) 99 % SpO2: [91 %-100 %] GENERAL - Alert, calm, communicates with thumbs up and down reliably. Oriented to month and year. No verbal output. Able to communicate with writing. CN - right gaze preference, unable to cross midline to left. No blink to threat on left. Non-reactive pupils/ CV/PULM - normal WOB MOTOR- LUE/LLE 0/5 RUE/RLE able to sustain gravity REFLEX - not assessed SENSATION - intact sensation on right COORDINATION - FTN intact on RUE GAIT - not assessed DATA I/O last 3 completed shifts: In: 140 [I.V.:10; NG/GT:60] Out: 3350 [Urine:3300; Stool:50] Labs Recent Labs 10/03/24 0405 10/02/2414810/01/24 0021 09/30/24 0144 09/29/24 0109 WBC 15.33* 19.16* 22.24* 25.89* 26.40* HGB 10.5* 10.1* 9.9* 10.1* 10.0* HCT 32.4* 31.1* 29.2* 31.0* 30.9* PLATELET 359* 399* 370* 376* 397* NEUTROABS 13.43* 16.45* 20.01* 22.26* 22.77* Recent Labs 10/03/24 0405 10/02/24 01410/01/24 0021 09/30/24 0144 09/28/24 0358 NA 146* 146* 141 139 138 K 4.0 3.6 3.2* 3.9 4.0 CL 108* 108* 105 104 106 CO2 30 28 28 25 22 BUN 22* 27* 23* 16 21* CREATININE 0.35* 0.39* 0.43* 0.47* 0.49* GLUCOSE 199 123 124 141 161 Recent Labs 10/03/24 0405 10/02/24 0149 10/01/24 0021 CALCIUM 9.1 8.7 8.7 MAGNESIUM 0.88 0.83 0.84 PHOS 2.7 2.9 2.4* No results for input(s): AST, ALT, ALKPHOS, BILITOT, BILIDIR, LDH in the last 168 hours. No results for input(s): TROPONINT, CK in the last 168 hours. No results for input(s): PHART, AKC6QZH, PO2ART, EPH2BEV in the last 168 hours. No results for input(s): INR in the last 72 hours. Lipid Panel Lab Results Component Value Date CHLPL 203 09/17/2024 CHLPL 135 05/06/2024 HDL 45 09/17/2024 HDL 46 05/06/2024 TRIG 95 09/20/2024 TRIG 101 05/06/2024 LDLCHOL 69 05/06/2024 LDLDIRECT 133 09/17/2024 Lab Results Component Value Date HA1C 6.1 (H) 09/17/2024 Micro - cultures/sensitivities UCx - None CSF - None Blood Cx - None Resp Cx - None Imaging/EKG No new imaging ASSESSMENT & PLAN Lucero Bruno 74 y.o. female with PMHx RIGHT occipital hemorrhage, chronic a-fib presented for watchman procedure. Patient developed headache after procedure and was taken to CT where she was found to have RIGHT IPH with mass effect and midline shift s/p craniotomy. 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 Course complicated by dysphagia requiring PEG tube placement. 10/03/24 Lucero Bruno remains medically stable. Leukocytosis continues to trend down. Patient is pending PEG tube placement and is add on case for Friday. NPO order for midnight in. Will defer starting IVF once TF are held due to risk of fluid over load and needing to be diuresised. Patient is not medically ready at this time, but will need SNF placement. 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 -Continue Amlodipine 5mg daily -Continue diltiazem 90mg q6 #Pulm - - goal SpO2> 94% -O2 as needed - nebs PRN #GI - >dysphagia - follow up [employer] recs - NPO diet (Give Meds) - maintain bowel reg - GI ppx-protonix 40mg -pending PEG tube placement #FEN/ - - maintain euvolemia, I=O - Goal Na 135-145, K > 4, Mg > 1 # Heme - - goal Hgb > 7, INR < 1.5, Platelets > 50k - DVT ppx: Lovenox, SCDs # Endo - - goal glucose 120-180 --> ISS Recent Labs 09/17/24 0039 05/06/24 0548 HA1C 6.1* 6.0* # ID - > Leukocytosis > Pneumonia > Respiratory Distress, resolved - for temp > 38C --> UA, CXR, blood cx, sputum cx - tylenol PRN - repeat CXR 09/29 - Completed Zosyn (09/24 - 09/29) - CBC - ID consult - C. Diff negative # Other - Activity: as tolerated - Dispo: Shelter facility - Last BM: Last Bowel Movement: 10/02/24 - code status: Attempt Cardiopulmonary Resuscitation - Inpatient Patient Lines/Drains/Airways Status Active Tubes/Lines/Drains Name Placement date Placement time Site Days Percutaneous Central Line 09/17/24 1405 Triple Lumen subclavian vein, right 09/17/24 1405 -- 16 Urethral Catheter 10/02/24 0315 14 10/02/24 0315 -- 1 Naso/Oral Tube 09/18/24 1229 small bore;nonweighted right nostril 09/18/24 1229 right nostril 15 Fecal Incontinence Certified Tumor Registrar 10/02/24 1208 10/02/24 1208 -- 1 Please page Vascular Neurology with any questions, #[phone] Clarisse Duke APRN Department [place] [address] * Chase Cárdenas RN - 10/03/2024 6:34 AM EST Pt rolled and repositioned per policy. * Chase Cárdenas RN - 10/03/2024 12:07 AM EST Page Sent Successfully Page Confirmation To Pager number: [phone] From Submitter: Chase Cárdenas Urgency Level: Call Me Callback Number: [phone] The following Message was sent: [Call Me] - Callback:[phone] [id number] Damion: Need clarification as soon as possible regarding NPO @ 0000 - Chase Cárdenas The following status was returned from the sql server developer: Page for [phone] successfully sent to [phone] having status of Available. * Chase Cárdenas RN - 10/02/2024 11:46 PM EST Page Sent Successfully Page Confirmation To Pager number: [phone] From Submitter: Chase Cárdenas Urgency Level: Call Me Callback Number: [phone] The following Message was sent: [Call Me] - Callback:[phone] [id number] Damion: Did you want TF held [id number] for PEG? Do we do PEGs on Sundays? - Chase Cárdenas The following status was returned from the sql server developer: Page for [phone] successfully sent to [phone] having status of Available.prog * Clarisse Duke APRN - 10/02/2024 2:29 PM EST Images from the original note were not included. VASCULAR NEUROLOGY DAILY PROGRESS NOTE Admit Date 09/16/2024 Responsible Attending: Gissell Velazco MD Primary Provider: Leila Manjarrez [phone] Hospital Day: Hospital Day: 17 Patient ID 74 y.o. female with PMHx RIGHT occipital hemorrhage, chronic a-fib presented for watchman procedure. Patient developed headache after procedure and was taken to CT where she was found to have RIGHT IPH with mass effect and midline shift s/p craniotomy. 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 Course complicated by dysphagia requiring PEG tube placement. 24hr Events: - NAEON, VSS, afebrile - Leukocytosis down trending - Denies any concerns this morning EXAM Last value Range last 24 hrs Temperature Temp: 36.9 ??C (98.4 ??F) Temp: [36.4 ??C (97.5 ??F)-36.9 ??C (98.4 ??F)] Heart Rate Heart Rate: 89 Heart Rate: [64-94] Blood Pressure BP: 126/84 BP: (109-141)/(52-84) Respiratory Rate Resp: 19 Resp: [13-20] SpO2 SpO2: 100 % SpO2: [91 %-100 %] GENERAL - Alert, calm, communicates with thumbs up and down reliably. No verbal output. Able to communicate with writing. CN - right gaze preference, unable to cross midline to left, CV/PULM - normal WOB MOTOR- LUE/LLE 0/5 RUE/RLE able to sustain gravity REFLEX - not assessed SENSATION - intact sensation on right COORDINATION - FTN intact on RUE, no nystagmus GAIT - not assessed DATA I/O last 3 completed shifts: In: 548 [I.V.:70; NG/GT:388] Out: 1825 [Urine:1525; Stool:300] Labs Recent Labs 10/02/2414810/01/24 0021 09/30/2414309/29/24 0109 09/28/24 0358 WBC 19.16* 22.24* 25.89* 26.40* 35.37* HGB 10.1* 9.9* 10.1* 10.0* 11.0* HCT 31.1* 29.2* 31.0* 30.9* 34.0* PLATELET 399* 370* 376* 397* 443* NEUTROABS 16.45* 20.01* 22.26* 22.77* 30.79* Recent Labs 10/02/2414810/01/24 0021 09/30/24 0144 09/28/24 0358 09/27/24 1646 09/27/24 0138 NA 146* 141 139 138 -- 139 K 3.6 3.2* 3.9 4.0 < > 3.8 CL 108* 105 104 106 -- 103 CO2 28 28 25 22 -- 25 BUN 27* 23* 16 21* -- 17 CREATININE 0.39* 0.43* 0.47* 0.49* -- 0.51* GLUCOSE 123 124 141 161 -- 148 < > = values in this interval not displayed. Recent Labs 10/02/24 0149 10/01/24 0021 09/30/24 0144 CALCIUM 8.7 8.7 8.4* MAGNESIUM 0.83 0.84 0.79 PHOS 2.9 2.4* 2.9 Recent Labs 09/26/24 0635 AST 28 ALT 72* ALKPHOS 81 BILITOT 0.4 BILIDIR <0.2 Recent Labs 09/26/24 0635 CK 78 No results for input(s): PHART, XFA5ERZ, PO2ART, JBE5GHR in the last 168 hours. No results for input(s): INR in the last 72 hours. Lipid Panel Lab Results Component Value Date CHLPL 203 09/17/2024 CHLPL 135 05/06/2024 HDL 45 09/17/2024 HDL 46 05/06/2024 TRIG 95 09/20/2024 TRIG 101 05/06/2024 LDLCHOL 69 05/06/2024 LDLDIRECT 133 09/17/2024 Lab Results Component Value Date HA1C 6.1 (H) 09/17/2024 Micro - cultures/sensitivities UCx - None CSF - None Blood Cx - None Resp Cx - None Imaging/EKG No new imaging ASSESSMENT & PLAN Lucero Bruno 74 y.o. female with PMHx RIGHT occipital hemorrhage, chronic a-fib presented for watchman procedure. Patient developed headache after procedure and was taken to CT where she was found to have RIGHT IPH with mass effect and midline shift s/p craniotomy. 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 Course complicated by dysphagia requiring PEG tube placement. 10/02/24 Lucero Bruno remains medically stable. Leukocytosis continues to trend down. Patient is pending PEG tube placement and is add on case for Friday. 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 -Continue Amlodipine 5mg daily -Continue diltiazem 90mg q6 #Pulm - - goal SpO2> 94% -O2 as needed - nebs PRN #GI - >dysphagia - follow up [employer] recs - NPO diet (Give Meds) NPO diet (Give Meds) - maintain bowel reg - GI ppx-protonix 40mg -pending PEG tube placement #FEN/ - - maintain euvolemia, I=O - Goal Na 135-145, K > 4, Mg > 1 # Heme - - goal Hgb > 7, INR < 1.5, Platelets > 50k - DVT ppx: Lovenox, SCDs # Endo - - goal glucose 120-180 --> ISS Recent Labs 09/17/24 0039 05/06/24 0548 HA1C 6.1* 6.0* # ID - > Leukocytosis > Pneumonia > Respiratory Distress, resolved - for temp > 38C --> UA, CXR, blood cx, sputum cx - tylenol PRN - repeat CXR 09/29 - Completed Zosyn (09/24 - 09/29) - CBC - ID consult - C. Diff negative # Other - Activity: as tolerated - Dispo: Shelter facility - Last BM: Last Bowel Movement: 10/01/24 - code status: Attempt Cardiopulmonary Resuscitation - Inpatient Patient Lines/Drains/Airways Status Active Tubes/Lines/Drains Name Placement date Placement time Site Days Percutaneous Central Line 09/17/24 1405 Triple Lumen subclavian vein, right 09/17/24 1405 -- 15 Ureteral Catheter 10/02/24 0315 exits urethra 10/02/24314 -- less than 1 Naso/Oral Tube 09/18/24 1229 small bore;nonweighted right nostril 09/18/24 1229 right nostril 14 Fecal Incontinence Certified Tumor Registrar 10/02/24 1208 10/02/24 1208 -- less than 1 Please page Vascular Neurology with any questions, #[phone] Clarisse Duke APRN Department [place] [address] * Annamarie Nelson F - 10/01/2024 4:04 PM EST Spiritual Health Visit Completed * Annamarie Nelson - 10/01/2024 10:16 AM EST Spiritual Health Visit Completed * Gissell Velazco MD - 10/01/2024 9:32 AM EST Neurology Progress Note Patient name: Lucero Bruno Date of : 1950 PCP: Leila Manjarrez Stroke Assessment: Date last well known:: 09/16/24 Time last well known:: 1620 Date of discovery of symptoms:: 09/16/24 Time of discovery of symptoms:: 1620 The time difference from patients last known well to ED arrival OR inpatient stroke alert was (choose one): Less than or equal to 4.5 hours Date acute stroke team was at bedside:: 09/16/24 Time acute stroke team was at bedside:: 1645 CT interpretation date: 09/16/24 CT interpretation time:: 1445 Was dysphagia screen performed?: No CC: R IPH ID: Lucero Bruno is a 74 y.o. female with PMH of R occipital hemorrhage, chronic a-fib presented for watchman procedure. Post operatively at approximately 4:20 pm began complaining of severe 10/10 headache, taken to [facility] were an enlarged R IPH with mass effect and midline shift was identified. Stroke alert called. At that time NIHSS 22. SBP in 130s. BG 202. She was subsequently intubated and taken to surgery for Craniotomy with evaluation by neurosurgery followed by admission to [facility] for further monitoring. Course complicated by failed extubation. She was re-extubated on 09/26 and vascular neurology re- engaged for possible downgrade. Interval Hx: - Decreased O2 needs overnight following deep suction - No other acute complaints Physical Exam: GCS Scale Vitals: Temp: [36.6 ??C (97.9 ??F)-36.9 ??C (98.4 ??F)] Heart Rate: [69-111] Resp: [15-26] BP: (96-153)/(45-104) SpO2: [85 %-98 %] Heart Rate from SpO2: [69 bpm-108 bpm] NG tube in place. Does not appear in acute distress GEN-following commands on the R upper extremity and bilateral lowers. Mute with no verbal output. Able to give thumbs up/down to communicate. Airways sound clearer CN-gaze midline, appears to have bilateral eyelid apraxia with difficulty opening eyes and maintaining eyes open. Difficulty looking left. MOTOR- no movement in the left upper extremity/left lower SENSATION -nods yes to sensory testing on the right. No response on the left. Possible component ofleft hemineglect. CEREBELLUM -finger to nose intact on right though with difficulty. REFLEXES - bilateral dalton and babinski with diffusely brisk reflexes. NIH Stroke Scale NIH Stroke Scale Date 09/16/24 NIH Stroke Scale Time 1645 Level of Consciousness 0 LOC Questions 2 LOC Commands 0 Best Gaze 1 Vision 2 Facial Palsy 0 Motor Arm, Left 4 Motor Arm, Right 0 Motor Leg, Left 4 Motor Leg, Right 0 Limb Ataxia 0 Sensory 2 Best Language 3 Dysarthria 2 Extinction and Inattention: 2 NIH Total Score 22 Labs: Recent Results (from the past 24 hour(s)) POC, GLUCOSE Result Value Ref Range Glucometer, POC 196 65 - 199 mg/dL POC, GLUCOSE Result Value Ref Range Glucometer, POC 207 (H) 65 - 199 mg/dL POC, GLUCOSE Result Value Ref Range Glucometer, POC 233 (H) 65 - 199 mg/dL CBC (with Diff) Result Value Ref Range White Blood Cell 22.24 (H) 4.00 - 9.50 x10(3)/mcL Red Blood Cell 3.22 (L) 4.00 - 5.21 x10(6)/mcL Hemoglobin 9.9 (L) 11.7 - 15.5 g/dL Hematocrit 29.2 (L) 35.7 - 45.8 % Mean Cell Volume 90.7 82.6 - 94.4 fL Mean Cell Hemoglobin 30.7 27.1 - 32.0 pg Mean Cell Hemoglobin Concentration 33.9 31.7 - 35.0 g/dL Platelet 370 (H) 145 - 357 x10(3)/mcL Mean Platelet Volume 9.8 7.6 - 12.9 fL RDW Standard Deviation 44.3 37.0 - 46.0 fL RDW coefficient of variation 13.7 11.5 - 14.1 % NRBC% auto 0.0 % NRBC Absolute <0.01 <0.01 x10(3)/mcL Neutrophil % 90.0 % Neutrophil Absolute (ANC) - Automated 20.01 (H) 1.70 - 6.10 x10(3)/mcL Lymph % 2.2 % Lymph Absolute 0.50 (L) 0.90 - 3.20 x10(3)/mcL Monocyte % 5.8 % Monocyte Absolute 1.29 (H) 0.30 - 0.90 x10(3)/mcL Eos % 0.0 % Eos Absolute <0.04 0.00 - 0.40 x10(3)/mcL Basophil % 0.1 % Baso Absolute <0.04 0.00 - 0.10 x10(3)/mcL Immature Gran % 1.9 % Immature Gran Absolute 0.42 (H) 0.00 - 0.04 x10(3)/mcL Basic Metabolic Panel Result Value Ref Range Glucose 124 65 - 199 mg/dL Blood Urea Nitrogen 23 (H) 8 - 18 mg/dL Creatinine 0.43 (L) 0.70 - 1.20 mg/dL Sodium 141 135 - 145 mMol/L Potassium 3.2 (L) 3.5 - 5.0 mMol/L Chloride 105 98 - 107 mMol/L Carbon Dioxide 28 22 - 31 mMol/L Anion Gap 8 5 - 15 mMol/L Calcium 8.7 8.5 - 10.5 mg/dL Est Glomerular Filtration Rate - Female 103 mL/min/1.73 m?? Magnesium Result Value Ref Range Magnesium 0.84 0.69 - 1.07 mMol/L Phosphorus Result Value Ref Range Phosphorus 2.4 (L) 2.5 - 4.5 mg/dL POC, GLUCOSE Result Value Ref Range Glucometer, POC 162 65 - 199 mg/dL POC, GLUCOSE Result Value Ref Range Glucometer, POC 160 65 - 199 mg/dL Results for orders placed or performed during the hospital encounter of 09/16/24 CT Head wo Contrast (Generic) (Exam End: 09/16/2024 5:26 PM) Result Value WORKSTATION ID [id number] Impression Interval expansion of now large right-sided temporal occipital intraparenchymal hemorrhage with significant mass effect resulting in 1 cm leftward midline shift. Per chart review, this patient was seen by neurosurgery and taken emergently to the OR. I have personally reviewed the image(s) and the resident's interpretation and agree with the findings, Lana Reinoso at 09/16/2024 6:01 PM Thank you for letting us participate in the care of this patient. If you are a health care provider and have any questions regarding this report, please contact the number below. For patients who have questions please contact the health ocular care technician that requested your imaging first. Head wo Contrast (Generic) (Exam End: 09/16/2024 11:21 PM) Result Value WORKSTATION ID [id number] Impression CT head: 1. Interval craniotomy with residual or recurrent hemorrhage right temporal and parietal lobe. 2. New hemorrhage right [...] in the care of this patient. If you are a health care provider and have any questions regarding this report, please contact the number below. For patients who have questions please contact the health ocular care technician that requested your imaging first. Electronically signed by: Armando Pan MD, [facility] ([phone]), at 09/17/2024 1:[address] Venogram Brain (Exam End: 09/16/2024 11:21 PM) Result Value WORKSTATION ID [id number] Impression CT head: 1. Interval craniotomy with residual or recurrent hemorrhage right temporal and parietal lobe. 2. New hemorrhage right [...] in the care of this patient. If you are a health care provider and have any questions regarding this report, please contact the number below. For patients who have questions please contact the health ocular care technician that requested your imaging first. Electronically signed by: Armando Pan MD, [facility] ([phone]), at 09/17/2024 1:42 AM XR Chest One View (Exam End: 09/16/2024 11:00 PM) Result Value WORKSTATION ID [id number] Impression Satisfactorily positioned enteric and endotracheal tubes. Left lower lobe atelectasis versus pneumonia. Thank you for letting us participate in the care of this patient. If you are a health care provider and have any questions regarding this report, please contact the number below. For patients who have questions please contact the health ocular care technician that requested your imaging first. Electronically signed by: Pamela Beard MD, [facility] ([phone]), at 09/17/2024 12:09 AM XR Abdomen 1 view (Generic) (Exam End: 09/16/2024 11:00 PM) Result Value WORKSTATION ID [id number] Impression Satisfactorily positioned enteric and endotracheal tubes. Left lower lobe atelectasis versus pneumonia. Thank you for letting us participate in the care of this patient. If you are a health care provider and have any questions regarding this report, please contact the number below. For patients who have questions please contact the health ocular care technician that requested your imaging first. Electronically signed by: Pamela Beard MD, [facility] ([phone]), at 09/17/2024 12:[address] Head wo Contrast (Generic) (Exam End: 09/17/2024 4:51 AM) Result Value WORKSTATION ID [id number] Impression Increased size and density of dominant right parietal hematoma, and of hemorrhage extending medially into the basal ganglia. Foci of thalamocapsular hemorrhage on the right are stable. No evidence of progressive intraventricular hemorrhage or ventricular dilation. No definitive increase in leftward midline shift or herniation. Thank you for letting us participate in the care of this patient. If you are a health care provider and have any questions regarding this report, please contact the number below. For patients who have questions please contact the health ocular care technician that requested your imaging first. Electronically signed by: Elvin Bolden DO, [facility] ([phone]), at 09/17/2024 8:38 AM XR Chest One View (Exam End: 09/17/2024 2:13 PM) Result Value WORKSTATION ID [id number] Impression 1. No focal opacity in lung 2. Pulmonary edema, progressed since last examination. 3. Tip of ET tube is 23 mm superior cuff to jonathan. Consider adjustment. 4. Sidehole and tip of NG tube is below the diaphragm. Thank you for letting us participate in the care of this patient. If you are a health care provider and have any questions regarding this report, please contact the number below. For patients who have questions please contact the health ocular care technician that requested your imaging first. Electronically signed by: Zoey Zabala MD, [facility] ([phone]), at 09/17/2024 2:43 PM XR Chest One View (Exam End: 09/18/2024 8:43 AM) Result Value WORKSTATION ID [id number] Impression Tubes and lines as described. Blunting of the left costophrenic angle suggests tiny layering left effusion with associated left basilar consolidation/atelectasis Thank you for letting us participate in the care of this patient. If you are a health care provider and have any questions regarding this report, please contact the number below. For patients who have questions please contact the health ocular care technician that requested your imaging first. Abdomen 1 view (Generic) (Exam End: 09/18/2024 12:31 PM) Result Value WORKSTATION ID [id number] Impression Dobbhoff tube tip along the greater curve of the stomach. Thank you for letting us participate in the care of this patient. If you are a health care provider and have any questions regarding this report, please contact the number below. For patients who have questions please contact the health ocular care technician that requested your imaging first. Brain wwo Contrast (Generic) (Exam End: 09/19/2024 5:43 PM) Result Value WORKSTATION ID [id number] Impression Unchanged size of large right cerebral hemisphere ICH status post partial evacuation. Numerous small foci of decreased acute infarction both along and separate from the site of hemorrhage. These foci are present in both cerebral hemispheres and have a pattern most consistent with embolic infarction. No evidence of [employer] malignancy Thank you for letting us participate in the care of this patient. If you are a health care provider and have any questions regarding this report, please contact the number below. For patients who have questions please contact the health ocular care technician that requested your imaging first. Electronically signed by: Rios Swartz MD, [facility] ([phone]), at 09/20/2024 8:[address] Head wo Contrast (Generic) (Exam End: 09/21/2024 3:50 AM) Result Value WORKSTATION ID [id number] Impression Stable hemorrhage right temporal, parietal, right posterior limb internal capsule and right thalamus. Mild progression of vasogenic edema adjacent to hemorrhage. Similar pattern and extent of local and generalized mass effect with stable subfalcine herniation and uncal herniation. Thank you for letting us participate in the care of this patient. If you are a health care provider and have any questions regarding this report, please contact the number below. For patients who have questions please contact the health ocular care technician that requested your imaging first. Electronically signed by: Armando Pan MD, [facility] ([phone]), at 09/21/2024 4:55 AM XR Abdomen 1 view (Generic) (Exam End: 09/21/2024 2:01 PM) Result Value WORKSTATION ID [id number] Impression Dobbhoff tube and enteric tube sidehole and tip is projecting over the expected location of the stomach. I have personally reviewed the image(s) and the resident's interpretation and agree with the findings, Shraddha Cox MD at 09/21/2024 3:40 PM Thank you for letting us participate in the care of this patient. If you are a health care provider and have any questions regarding this report, please contact the number below. For patients who have questions please contact the health ocular care technician that requested your imaging first. Electronically signed by: Shraddha Cox MD, [facility] ([phone]), at 09/21/2024 3:40 PM XR Chest One View (Exam End: 09/21/2024 2:01 PM) Result Value WORKSTATION ID [id number] Impression ET tube with tip projecting approximately 1.4 cm above the jonathan. Recommend retracting approximately 2 cm and follow-up imaging. New left basilar atelectasis and/or small pleural effusion. Aspiration or pneumonia could also this appearance. I Sacha Shipley MD discussed the results (Impression #1) with Bonnie Vazquez on 09/21/2024 4:42 PM and verified that the results were understood. I have personally reviewed the image(s) and the resident's interpretation and agree with the findings, Octavio Scott MD at 09/21/2024 5:09 PM Thank you for letting us participate in the care of this patient. If you are a health care provider and have any questions regarding this report, please contact the number below. For patients who have questions please contact the health ocular care technician that requested your imaging first. Electronically signed by: Octavio Scott MD, [facility] ([phone]), at 09/21/2024 5:[address] Head wo Contrast (Generic) (Exam End: 09/22/2024 4:02 AM) Result Value WORKSTATION ID [id number] Impression Stable head CT status post removal of subcutaneous drain. No new or enlarging hemorrhage. Stable pattern of mass effect Thank you for letting us participate in the care of this patient. If you are a health care provider and have any questions regarding this report, please contact the number below. For patients who have questions please contact the health ocular care technician that requested your imaging first. Electronically signed by: Armando Pan MD, [facility] ([phone]), at 09/22/2024 4:[address] Angiogram Chest for Pulmonary Embolus w Contrast (Exam End: 09/26/2024 1:37 PM) Result Value WORKSTATION ID [id number] Impression 1. No pulmonary embolism. 2. Pulmonary edema. 3. Bibasilar atelectasis. Superimposed patchy airspace opacity in the left lower lobe may represent atelectasis versus pneumonia. 4. Mild emphysema. 5. Mild cardiomegaly. Left atrial appendage occlusion device in situ. Mild multifocal coronary atherosclerosis. Correlation with echocardiography may be of benefit. 6. Unexpected Findin mm indeterminant left adrenal nodule. Per ACR white paper guidelines, follow-up CT of the Abdomen (Adrenal protocol - without and with intravenous contrast) is recommended in one year. 7. Mild sigmoid diverticulosis coli without secondary signs of acute diverticulitis. 8. Interval development of anasarca, which may be related to hypervolemia, hypoproteinemia, or combination thereof. 9. Endotracheal catheter in situ with tip 4 mm above the jonathan. Recommend retraction. 10. Enteric catheter in situ with tip terminating in the gastric pylorus. 11. Hill catheter in situ. Persistent distention of the urinary bladder. Correlation with catheter functionality is recommended. 12. Rectal catheter in situ. Thank you for letting us participate in the care of this patient. If you are a health care provider and have any questions regarding this report, please contact the number below. For patients who have questions please contact the health ocular care technician that requested your imaging first. Electronically signed by: Marvin Decker DO, [facility] ([phone]), at 09/26/2024 1:[address] Head wo Contrast (Generic) (Exam End: 09/26/2024 1:37 PM) Result Value WORKSTATION ID [id number] Impression 1. Stable right-sided parenchymal and subdural hemorrhages, associated mass effect and midline shift. 2. Stable left intraventricular hemorrhage. 3. No new or enlarging hemorrhages or extra-axial collections. Thank you for letting us participate in the care of this patient. If you are a health care provider and have any questions regarding this report, please contact the number below. For patients who have questions please contact the health ocular care technician that requested your imaging first. Electronically signed by: Smiley Cordova MD, [facility] ([phone]), at 09/26/2024 2:[address] Abdomen & Pelvis w Contrast (Exam End: 09/26/2024 1:37 PM) Result Value WORKSTATION ID [id number] Impression 1. No pulmonary embolism. 2. Pulmonary edema. 3. Bibasilar atelectasis. Superimposed patchy airspace opacity in the left lower lobe may represent atelectasis versus pneumonia. 4. Mild emphysema. 5. Mild cardiomegaly. Left atrial appendage occlusion device in situ. Mild multifocal coronary atherosclerosis. Correlation with echocardiography may be of benefit. 6. Unexpected Findin mm indeterminant left adrenal nodule. Per ACR white paper guidelines, follow-up CT of the Abdomen (Adrenal protocol - without and with intravenous contrast) is recommended in one year. 7. Mild sigmoid diverticulosis coli without secondary signs of acute diverticulitis. 8. Interval development of anasarca, which may be related to hypervolemia, hypoproteinemia, or combination thereof. 9. Endotracheal catheter in situ with tip 4 mm above the jonathan. Recommend retraction. 10. Enteric catheter in situ with tip terminating in the gastric pylorus. 11. Hill catheter in situ. Persistent distention of the urinary bladder. Correlation with catheter functionality is recommended. 12. Rectal catheter in situ. Thank you for letting us participate in the care of this patient. If you are a health care provider and have any questions regarding this report, please contact the number below. For patients who have questions please contact the health ocular care technician that requested your imaging first. Electronically signed by: Marvin Decker DO, [facility] ([phone]), at 09/26/2024 1:54 PM XR Chest One View (Exam End: 09/28/2024 4:06 AM) Result Value WORKSTATION ID [id number] Impression 1. Limited examination. 2. Interval removal of the endotracheal catheter. 3. Stable position of other medical hardware. 4. Decreased but persistent patchy left retrocardiac airspace opacity, may be resolving atelectasis or pneumonia. Thank you for letting us participate in the care of this patient. If you are a health care provider and have any questions regarding this report, please contact the number below. For patients who have questions please contact the health ocular care technician that requested your imaging first. Electronically signed by: Marvin Decker DO, [facility] ([phone]), at 09/28/2024 4:12 AM XR Chest One View (Exam End: 09/28/2024 7:58 PM) Result Value WORKSTATION ID [id number] Impression 1. Slightly increased opacity in the left lower lung which may be due to atelectasis, aspiration or pneumonia. 2. Small bilateral pleural effusions. Thank you for letting us participate in the care of this patient. If you are a health care provider and have any questions regarding this report, please contact the number below. For patients who have questions please contact the health ocular care technician that requested your imaging first. Electronically signed by: Sammy Story MD, [facility] ([phone]), at 09/28/2024 8:09 PM XR Chest One View (Exam End: 09/29/2024 1:13 PM) Result Value WORKSTATION ID [id number] Impression 1. Limited examination. 2. Stable position of medical hardware. 3. The lung volumes are decreased, which accentuates the pulmonary vascular markings and cardiac silhouette. 4. Accounting for this, a stable mild component of congestive heart failure / fluid overload is suspected. 5. Stable moderate cardiomegaly. 6. Possible inferior subluxation of the left humerus. Correlation with patient symptomatology is recommended. If clinically indicated, further evaluation with dedicated left shoulder radiographs can be obtained. Thank you for letting us participate in the care of this patient. If you are a health care provider and have any questions regarding this report, please contact the number below. For patients who have questions please contact the health ocular care technician that requested your imaging first. Assessment and Plan: Lucero Bruno is a 74 y.o. female w/ PMH of R occipital hemorrhage, chronic a-fib presented forwatchman procedure. Post operatively at approximately 4:20 pm began complaining of severe 10/10 headache, taken to [facility] were an enlarged R IPH with mass effect and midline shift was identified. Strokealert called. At the time of my assessment patient is alert, following commands, moving her right si de and able to sustain antigravity. Unable to move left side. Pinpoint un- reactive L pupil and blown pupil on the right. NIHSS 22. SBP in 130s. BG 202. 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 Neurosurgery was engaged, patient receivedcraniotomy and admitted to NCCU for monitoring. NCCU course was complicated by failed extubation. She was re-extubated on 09/26 and has remained clinically stable. 10/01 White cell continues to downtrend, off zosyn. Trial of furosemide, in addition to RT care, appears to have partially alleviated increased O2 demands. Will trial 20 mg furosemide today to further decrease suspected fluid overload. IR coordinating with anesthesia regarding PEG tube placement. Patientis able to write and communicate through clipboard. Will need central line removed. Alteplase: IV Thrombolytics decision time: 1714 Was IV Thrombolytics given?: No # R IPH -Admit to neurology, NSCU level of care -Neuro check & vitals Q2hrs / Q2hrs -Permissive HTN, treat SBP >220 with prn labetalol, enalaprilat -Check CBC, BMP, LFT, lipid profile, HbA1c, Mg, Phos, UA -TTE -12 lead EKG -Telemetry -MRI brain wo contrast -CTA head & neck -PT/OT/[employer]MER -Neurosurgery consulted # Leukocytosis # Pneumonia # Respiratory Distress - repeat CXR 09/29 - on Zosyn (09/24 - 09/29) - CBC - ID consult - C. Diff negative - 20 mg furosemide IV today # Prophylaxis -Lovenox 40 mg QHS -RBOs -SCDs # Supportive Care -Pantoprazole 40 mg IV -NPO, consulting IR regarding PEG tube placement -Tylenol PRN -Up with assistance # FULL code Stroke Navigator Completed: Yes Jung Yun MD Vascular Neurology Pager [phone] Neurology Attending Attestation I evaluated the patient with the Stroke Team during bedside rounds. I have reviewed the medical records and patient's history, as well as the resident???s history and examination findings and I agreewith the details as written. My neurologic examination confirms the resident???s findings. We formulated the assessment and plan after a detailed discussion, as documented. Gissell Velazco MD Vascular Neurology Standard [facility] Swallow Screen: This screen is to be used to document a Swallow Screen prior to ingestion of water and /or oral medications for patients with possible stroke (Ischemic or Hemorrhagic). Exclusion Criteria: A swallow screen is not to be performed on patients who: have a decreased level of consciousness. are not able to follow simple commands. are hypoxic, or have increasing O2 needs or may need to be intubated. have a G/J tube for nutrition. have a recent history of a swallowing disorder *These patients should remain NPO (HOLD MEDS) and the physician notified for further orders. Swallow Screen Using Water: None of the Exclusion Criteria as mentioned above is present? Patient is alert and sitting upright? Able to close lips and tongue is midline? Able to cough, manage oral secretions with dry voice? ONLY IF ABOVE ALL YES, Able to swallow 30 ml of water without coughing, displaying a wet voice or choking? Repeat Twice. If YES to all responses, proceed with water and oral medications as well as diet as medical provider deems appropriate. Consider [employer] consult for full evaluation and diet recommendations. If NO to any of the responses, stop immediately, keep patient NPO and notify physician. * Jo Potts RD - 10/01/2024 8:45 AM EST Nutrition Progress Note Lucero Bruno is a 74 y.o. 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 Interval History No data found. Reason for Assessment: Follow-up, Tube Feeding Nutrition Recommendations: NPO per [employer]MER 09/30 Continue TF and limit holds as able. Please adjust insulin regimen to account for carbohydrates in Nutren 1.5 vs Peptamen VHP Average tube feeding provision over past 5 days; 220 mL vs daily goal volume of 1200 mL formula (18% of goal) - <50% EER x 5 days is 1 qualifier for Severe protein calorie malnutrition Enteral Nutrition: Nutren 1.5 with a goal rate of 40 ml per hour plus 6 scoops protein powder per day. At goal, this will provide: Nutren 1.5 Total Volume Per Day: 960 mL Scoops of Protein: 6 Calories per Day: 1590 Protein per Day: 101 g Free Water mL per Day: 1033 % RDI: 96 % Monitor hydration status on above TFs as they are concentrated. Pt may need additional fluids depending on IVFs, med flushes, etc. Daily BMP w/ mag and phos Monitor lytes - replete as indicated Continue MVI Goal of 1 BM per 24-48 hrs on EN Goal BG <180 Daily Weights Pt meets criteria for severe protein calorie malnutrition as outlined below. I was able to discuss plan with provider Neurology Stroke [id number] Meet the following enteral nutrition (EN) milestones to be nutritionally ready for discharge: []Patient is tolerating goal volume and schedule (cycle/bolus) of enteral regimen []Electrolytes and blood sugars have been stable x 48 hours with goal regimen []Has not required IV fluids for hydration x 48 hours []Patient or capable caregiver has received education regarding home tube feeds []Home enteral regimen has been reviewed for errors and potential barriers to insurance coverage []Identification of a provider to manage enteral nutrition outside of the hospital []Delivery of enteral formula and supplies is scheduled Patient IS NOT nutritionally ready for discharge Details/recommendations for uncompleted steps: feeds not at goal, need for remote computer terminal operator nutrition planif unable to advance diet Current Nutrition Regimen: Active Orders Diet NPO diet (Give Meds) Frequency: Effective Now Number of Occurrences: Until Specified NPO diet (Give Meds) Frequency: Effective Midnight Number of Occurrences: Until Specified All Active TF Orders: Tubefeeding Orders (From admission, onward) Start Dose/Rate Route Frequency Ordered Stop 10/01/24 1215 tube feeding diet 960 mL Per NG tube CONTINUOUS 10/01/24 1123 Average tube feeding provision over past 5 days; 220 mL vs daily goal volume of 1200 mL formula (18% of goal). Average protein powder provision over the past 2 days; 5 scoops vs daily goal of 6 scoops (83% of goal) Tolerance or barriers to meeting needs: holds Assessment: Lab Results Component Value Date NA 141 10/01/2024 NA 141 05/08/2024 K 3.2 (L) 10/01/2024 K 4.2 05/08/2024 CL 105 10/01/2024 CL 105 05/08/2024 CO2 28 10/01/2024 CO2 25 05/08/2024 BUN 23 (H) 10/01/2024 BUN 14 05/08/2024 CREATININE 0.43 (L) 10/01/2024 CREATININE 0.68 (L) 05/08/2024 ESTGFR 103 10/01/2024 ESTGFR 92 05/08/2024 MAGNESIUM 0.84 10/01/2024 MAGNESIUM 0.85 05/08/2024 CALCIUM 8.7 10/01/2024 CALCIUM 9.2 05/08/2024 PHOS 2.4 (L) 10/01/2024 PHOS 3.1 05/08/2024 AST 28 09/26/2024 AST 15 05/08/2024 ALT 72 (H) 09/26/2024 ALT 14 05/08/2024 ALKPHOS 81 09/26/2024 ALKPHOS 92 05/08/2024 BILITOT 0.4 09/26/2024 BILITOT 0.4 05/08/2024 BILIDIR <0.2 09/26/2024 BILIDIR 0.1 05/08/2024 TRIG 95 09/20/2024 TRIG 101 05/06/2024 HA1C 6.1 (H) 09/17/2024 HA1C 6.0 (H) 05/06/2024 25OHVITD 38 11/14/2023 Lab Results Component Value Date POCGLU 137 10/01/2024 POCGLU 160 10/01/2024 POCGLU 162 10/01/2024 POCGLU 233 (H) 09/30/2024 POCGLU 207 (H) 09/30/2024 Patient Lines/Drains/Airways Status Active Nutritional LDAs Name Placement date Placement time Site Days Naso/Oral Tube 09/18/24 1229 small bore;nonweighted right nostril 09/18/24 1229 right nostril 13 Percutaneous Central Line 09/17/24 1405 Triple Lumen subclavian vein, right 09/17/24 1405 -- 14 Urethral Catheter 09/16/24 latex 14 5 10 09/16/24 -- -- 15 Oxygen Therapy / Airway Device: None (Room air) Shift Pressure Injury Prevention Occiput: No Injury Thoracic Spine: No Injury Sacral: Redness, Blanchable Ischial - left: No Injury Ischial - right: No Injury Heel - left: No Injury Heel - right: No Injury Elbow - left: No Injury Elbow - right: No Injury Device Sites: BP Cuff, ECG Leads, flexiseal, hill, IV sites, O2 sat monitor, oxygen tubing, SCD's / venodynes, other (see comments) (DHT) EEG Skin Appearance: clean, dry, intact Other Sites: CVC Last Bowel Movement: 10/01/24 Intake/Output Summary (Last 24 hours) at 10/01/2024 1455 Last data filed at 10/01/2024 1400 Gross per 24 hour Intake 808 ml Output 800 ml Net 8 ml Relevant medications: lispro, Thera M, Protonix, calcium gluconate (2g on 09/26), Magnesium sulfate (8g on 09/26), Zofran PRN, 40mEq KCL on 09/27 and 10/01, 20 mEq KCL on 09/28, Anthropometrics: Admit Weight: 88.45 kg Estimated body mass index is 36.81 kg/m?? as calculated from the following: Height as of 09/21/24: 152.4 cm (5'). Weight as of this encounter: 85.5 kg (188 lb 7.9 oz). [place] Body Weight (IBW) (kg): 45.45 Wt Readings from Last 10 Encounters: 10/01/24 85.5 kg (188 lb 7.9 oz) 09/21/24 91.3 kg (201 lb 4.5 oz) 09/18/24 91.5 kg (201 lb 11.5 oz) 07/28/24 85.3 kg (188 lb) 05/24/24 81.6 kg (180 lb) 05/08/24 84.1 kg (185 lb 6.4 oz) 05/08/24 82 kg (180 lb 12.4 oz) 04/23/24 83.9 kg (185 lb) 03/03/24 85 kg (187 lb 6.3 oz) 11/14/23 87.2 kg (192 lb 3.2 oz) Patient Vitals for the past 168 hrs: Weight 10/01/24 0600 85.5 kg (188 lb 7.9 oz) 09/30/24 0600 84.4 kg (186 lb) 09/28/24 0600 85.4 kg (188 lb 4.4 oz) Weight Source: Bed Estimated / Assessed Needs: Kcal / K - 1597 Kcal (14 Kcal/Kg - 18 Kcal/Kg) Estimated Protein Needs: 91 g - 114 g (2.0 g/Kg - 2.5 g/Kg IBW) Nutrition intake and intake history / interview: 10/01: TF restarted 09/29 at 1645hr; currently running at 30mL/hr. Pt showing signs of refeeding per 10/01 labs (hypokalemia, hypophosphatemia); KCl repletion noted but . Some high BG noted 09/30 (229, 196, 207, 233); insulin regimen still adjusting for Pep VHP rather than Nutren 1.5, team aware. CUTTER AND EDGE TRIMMER continues to recommend NPO per 09/30 note. LBM 09/29, optimize regimen. Per EMR, pt with 4% wt loss in <1 week (196lbs on 09/24 to 188lbs on 09/28) which is clinically significant. Unable to complete full NFPE at this time. Planned for upcoming PEG placement. 09/29: TF Dc'd 09/28 @ 1835hr. CUTTER AND EDGE TRIMMER continues to recommend NPO, need for alternate nutrition. Updated TF recs pended as above. Pt now with <50% EER x 5 days, increasing risk for malnutrition. 09/27: TF off. Pressor off. Extubated, not cleared for PO intake. 09/23: TF held for possible extubation today, restarted this afternoon. Reassessed needs, TF recs updated. 09/21: Pt extubated and reintubated today, restarted on propofol. TF held. 09/17: Cx for TF recs. Per chart, wt has been fluctuating 82-89 kg x 10 months. Nutrition Focused Physical Exam: Performed (10/01 by MLS) Subcutaneous Fat Loss Orbital region: None present Upper arm region (triceps/biceps): None present Thoracic and Lumbar regions (ribs, lower back, and maxillary line): Not assessed Lean Muscle Loss Druze region (temporalis muscle): None present Clavicle bone region (pectoralis major): None present Dorsal hand (interosseous muscle): Not assessed (pt unable to engage muscle) Shoulder (deltoid): None present Scapular bone region (latissimus dorsi, trapezius muscles): Not assessed Thigh region (quadriceps muscle): Not assessed Posterior calf region (gastrocnemius muscle): Not assessed Malnutrition Diagnosis: Identified: less than or equal to 50% of estimated energy requirement for greater than or equal to 5 days and greater than 2% weight loss in 1 week is consistent with Severe protein-calorie malnutrition in the setting of acute illness or injury (Mari main al, JPEN J Parenteral Enteral Nutr. 2011; 36(3): 273-83) Nutrition to continue to follow up while inpatient Thank you, Jo Potts, MS, RDN, LD Clinical Nutrition * Elvin Vallecillo RCP - 10/01/2024 3:12 AM EST Illness Severity Stable Respiratory Modalities: O2 Device: High flow nasal cannula 35 L/min 45 % Patient Summary Admitted: 09/16/2024 Age: 74 y.o. Code Status: FULL. HPI: Post-op (Watchman procedure), developed R ICH, R craniotomy evacuation PMHx: Prior R occipital ICH, A-fib, Events w/ date: 09/21 Failed extubation due to airway edema, swelling ,stridor re intubated 09/26: Pt extubated 09/30 placed on HFNC 09/30 Overnight: Patient remains on HFNC overnight, O2 sats in low 90s through the shift, no distress of note but patient continues to require high flow Action List Medications/ACT: Duo Q4 NTS PRN Situational Awareness & Contingency Planning * Olive Issa RCP - 09/30/2024 4:30 PM EST Illness Severity Stable Respiratory Modalities: O2 Device: High flow nasal cannula 35 L/min 45 % Patient Summary Admitted: 09/16/2024 Age: 74 y.o. Code Status: FULL. HPI: Post-op (Watchman procedure), developed R ICH, R craniotomy evacuation PMHx: Prior R occipital ICH, A-fib, Events w/ date: 09/21 Failed extubation due to airway edema, swelling ,stridor re intubated 09/26: Pt extubated 09/30 placed on HFNC Assessment: Pt received on HFNC on 40L/min and 45% FIO2 She cont to have difficulties with clearing her secretions She does have a decent cough if encouraged to, but does need help from staff to suctioning her mouth She has not required NT suctioning today and secretions have been manages with frequent oral suctioning at the back of her mouth Secretions have been thin, white clear She was OOB sitting up in the chair this afternoon RT will cont to follow and wean FIO2 as tolerated SPO2 goal > 92% Action List Medications/ACT: Duo Q4 NTS PRN Situational Awareness & Contingency Planning * Kymberly Baptiste, PT - 09/30/2024 2:56 PM EST Physical Therapy Note Treatment Number PT: 4 Patient profile: Lucero Bruno ( ) is a 74 y.o. 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 Interval History: transferred to step-down unit Social History: per previous hospitalization 04/2024 Patient reports she lives alone with her two cats in a 2 level home with a basement. Patient reports her needs are met on the main level, including laundry. Her bathroom includes a tub shower with grab bars. Residence has 2 small ZAIN. At her baseline, patient is independent in all aspects. 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 Patient reports she enjoys her 1/2 acre of flower beds. Falls: None Precautions/Special Considerations: at risk to fall, SBP 90-160, MAP>65 Lines: PIV, tele, central line, hill catheter, DHT, flexiseal, nasal cannula Activity Orders: AAT Diet: NPO Mobility and Positioning Recommendations: Pt to utilize [facility] lift for transfers with nursing. Please encourage up to chair for meal times as able. Subjective: communicates via gestures & able to write today Objective: Patient seen for physical therapy and demonstrated the following: Pain: Endorses pain in L shoulder, did not rate Vital Signs: Stable throughout on HFNC, 45% FiO2 Cognition/Vision: alert, follows commands in RUE/RLE, answers yes/no with gestures, writing today. Bed Mobility: Supine to Sit: max assist x2 with HOB elevated Sit to Supine: max assist x2 Transfers: Sit to Stand: NA Stand to Sit: NA [facility] to recliner chair with split-leg sling, reports being anxious but tolerated transfer Gait: NA Stairs: NA Balance: Sitting Static: poor, requires mod-max assist for seated balance, impaired righting reactions, poorhead/neck control. Tolerated increased time at EOB today Sitting Dynamic: poor Standing Static: NA Standing Dynamic / Gait: NA Therex: performed R LAQ at EOB, as well as hooked LAQ on L with R assisting Education: Pt educated on bed mobility, transfers, seated balance, role of therapy, and importance of mobility. She will require ongoing reinforcement. Pt left in bedside recliner chair, with all needs met, with call ruiz in reach, and with chair alarm active following visit. Assessment: Lucero Bruno was seen today for physical therapy treatment session for continuation of POC. Pt continues to be highly engaged and motivated to participate with PT. She tolerates EOB sitting activities, and despite HFNC, VSS throughout. Continue to progress activity as able, recommend d/c to SNF once medically ready. Pt will benefit from ongoing therapeutic interventions to achieve therapy goals. Discharge Recommendations: Based on the current findings, Anticipated Discharge Disposition (PT): [facility] facility [facility] medically ready for hospital discharge. Discharge recommendation is based on the patient's current physical impairments, prior functional status, potential to return to prior level of function, patient motivation, reported home support, potential for functional gains, current level of endurance, reported home environment and anticipated trajectory of progress and may change based on patient progress during this hospitalization. Consult Recommendations: No other consults recommended at this time. Equipment needs: Anticipated Equipment Needs at Discharge (PT): to be determined Goals: To be achieved by 10/13/24: ONGOING Pt. to demonstrate knowledge of safety limitations and precautions and will appropriately request assistance for functional activities and to mobilize. Pt. to perform bed mobility with mod A. Pt will maintain seated balance at EOB with min A x5 mins. Pt. Will tolerate mech lift OOB to recliner chair. Family or caregiver to demonstrate understanding of therapeutic interventions to support the care of the patient. Pt will tolerate progression towards upright with stable vital signs. Plan: Therapy Frequency (PT): 2-3 times/wk for therapy interventions as outlined in initial evaluation. Patient agrees with plan as stated. Time IN / OUT: 3346-8463 Total Minutes, Physical Therapy: 28 Billing Code: TEF1 Kymberly Baptiste PT, DPT, NCS Pager: [phone] Physical Therapy Inpatient Rehabilitation Department * Rob Guzman MD - 09/30/2024 2:28 PM EST [facility] NEUROSURGERY PROGRESS NOTE ID: Lucero Bruno 74 y.o. female : 1950 LOS: 14 Neurosurgical Procedures this Admission: 09/16/24, Dr. Espinal: R craniotomy for IPH evacuation INTERVAL Hx: -NAEON. Neurostable MEDICATIONS: Scheduled Meds: pantoprazole 40 mg Intravenous Daily enoxaparin 40 mg Subcutaneous Nightly protein powder 2 Scoop Per NG tube TID piperacillin-tazobactam 3.375 g Intravenous Q8H amLODIPine 5 mg Per NG tube Daily insulin lispro 0-3 Units Subcutaneous Q4H CARLY ipratropium-albuteroL 3 mL Nebulization Q4H insulin lispro 2-12 Units Subcutaneous Q4H CARLY dilTIAZem 90 mg Per NG tube Q6H CARLY multivitamin with minerals 1 tablet Per NG tube Daily Continuous Infusions: tube feeding diet 20 mL/hr at 09/30/24 1000 PRN: iohexoL, 0-200 mL, Once PRN glucose 40% oral geL, 15-30 g of glucose, Q15 Min PRN Or dextrose, 25 g, Q15 Min PRN Or glucagon, 1 mg, Q15 Min PRN iohexoL, 0-200 mL, Once PRN ondansetron, 4 mg, Q8H PRN docusate sodium, 100 mg, BID PRN And sennosides, 17.6 mg, BID PRN polyethylene glycoL (MIRALAX) oral powder, 17 g, Daily PRN labetaloL, 20 mg, Q4H PRN acetaminophen, 975 mg, Q6H PRN sodium chloride, 4 mL, Q6H PRN potassium chloride ER, 40 mEq, Q4H PRN Or potassium chloride ER, 20 mEq, Q4H PRN bisacodyL, 10 mg, Daily PRN bacitracin zinc-polymyxin B, , PRN gelatin compressed, , PRN thrombin (Bovine), , PRN EXAM: Temp: [36.3 ??C (97.4 ??F)-37 ??C (98.6 ??F)] Heart Rate: [65-99] Resp: [17-29] BP: (96-141)/(44-105) SpO2: [92 %-100 %] Heart Rate from SpO2: [65 bpm-99 bpm] I/O: Intake/Output Summary (Last 24 hours) at 09/30/2024 1428 Last data filed at 09/30/2024 1409 Gross per 24 hour Intake 327.5 ml Output 2530 ml Net -2202.5 ml Drains: AUBREY out 09/21 GEN: extubated - nonverbal. Resting in bed NEURO: A/ox3 with yes/no questions via thumbs up/thumbs down (name/year/place) R pupil 3mm, reactive L pupil 4mm R gaze preference, does not come to midline MOTOR: RUE: FC, thumbs up LUE: withdraws to noxious stimuli RLE: FC, wiggles toes LLE: flicker wiggles toes to command L hemianesthesia Incision CDI - stacey LABS: Recent Labs 09/30/2414309/29/24 0109 09/28/24357 WBC 25.89* 26.40* 35.37* HGB 10.1* 10.0* 11.0* PLATELET 376* 397* 443* Recent Labs 09/30/2414309/28/2435709/27/24 1646 NA 139 138 -- K 3.9 4.0 4.0 CL 104 106 -- CO2 25 22 -- BUN 16 21* -- CREATININE 0.47* 0.49* -- No results for input(s): PT, INR in the last 72 hours. IMAGING: Results for orders placed or performed during the hospital encounter of 09/16/24 CT Head wo Contrast (Generic) (Exam End: 09/16/2024 5:26 PM) Result Value WORKSTATION ID [id number] Impression Interval expansion of now large right-sided temporal occipital intraparenchymal hemorrhage with significant mass effect resulting in 1 cm leftward midline shift. Per chart review, this patient was seen by neurosurgery and taken emergently to the OR. I have personally reviewed the image(s) and the resident's interpretation and agree with the findings, Lana Reinoso at 09/16/2024 6:01 PM Thank you for letting us participate in the care of this patient. If you are a health care provider and have any questions regarding this report, please contact the number below. For patients who have questions please contact the health ocular care technician that requested your imaging first. Head wo Contrast (Generic) (Exam End: 09/16/2024 11:21 PM) Result Value WORKSTATION ID [id number] Impression CT head: 1. Interval craniotomy with residual or recurrent hemorrhage right temporal and parietal lobe. 2. New hemorrhage right [...] in the care of this patient. If you are a health care provider and have any questions regarding this report, please contact the number below. For patients who have questions please contact the health ocular care technician that requested your imaging first. Electronically signed by: Armando Pan MD, [facility] ([phone]), at 09/17/2024 1:[address] Venogram Brain (Exam End: 09/16/2024 11:21 PM) Result Value WORKSTATION ID [id number] Impression CT head: 1. Interval craniotomy with residual or recurrent hemorrhage right temporal and parietal lobe. 2. New hemorrhage right [...] in the care of this patient. If you are a health care provider and have any questions regarding this report, please contact the number below. For patients who have questions please contact the health ocular care technician that requested your imaging first. Electronically signed by: Armando Pan MD, [facility] ([phone]), at 09/17/2024 1:42 AM XR Chest One View (Exam End: 09/16/2024 11:00 PM) Result Value WORKSTATION ID [id number] Impression Satisfactorily positioned enteric and endotracheal tubes. Left lower lobe atelectasis versus pneumonia. Thank you for letting us participate in the care of this patient. If you are a health care provider and have any questions regarding this report, please contact the number below. For patients who have questions please contact the health ocular care technician that requested your imaging first. Electronically signed by: Pamela Beard MD, [facility] ([phone]), at 09/17/2024 12:09 AM XR Abdomen 1 view (Generic) (Exam End: 09/16/2024 11:00 PM) Result Value WORKSTATION ID [id number] Impression Satisfactorily positioned enteric and endotracheal tubes. Left lower lobe atelectasis versus pneumonia. Thank you for letting us participate in the care of this patient. If you are a health care provider and have any questions regarding this report, please contact the number below. For patients who have questions please contact the health ocular care technician that requested your imaging first. Electronically signed by: Pamela Beard MD, [facility] ([phone]), at 09/17/2024 12:[address] Head wo Contrast (Generic) (Exam End: 09/17/2024 4:51 AM) Result Value WORKSTATION ID [id number] Impression Increased size and density of dominant right parietal hematoma, and of hemorrhage extending medially into the basal ganglia. Foci of thalamocapsular hemorrhage on the right are stable. No evidence of progressive intraventricular hemorrhage or ventricular dilation. No definitive increase in leftward midline shift or herniation. Thank you for letting us participate in the care of this patient. If you are a health care provider and have any questions regarding this report, please contact the number below. For patients who have questions please contact the health ocular care technician that requested your imaging first. Electronically signed by: Elvin Bolden DO, [facility] ([phone]), at 09/17/2024 8:38 AM XR Chest One View (Exam End: 09/17/2024 2:13 PM) Result Value WORKSTATION ID [id number] Impression 1. No focal opacity in lung 2. Pulmonary edema, progressed since last examination. 3. Tip of ET tube is 23 mm superior cuff to jonathan. Consider adjustment. 4. Sidehole and tip of NG tube is below the diaphragm. Thank you for letting us participate in the care of this patient. If you are a health care provider and have any questions regarding this report, please contact the number below. For patients who have questions please contact the health ocular care technician that requested your imaging first. Electronically signed by: Zoey Zabala MD, [facility] ([phone]), at 09/17/2024 2:43 PM XR Chest One View (Exam End: 09/18/2024 8:43 AM) Result Value WORKSTATION ID [id number] Impression Tubes and lines as described. Blunting of the left costophrenic angle suggests tiny layering left effusion with associated left basilar consolidation/atelectasis Thank you for letting us participate in the care of this patient. If you are a health care provider and have any questions regarding this report, please contact the number below. For patients who have questions please contact the health ocular care technician that requested your imaging first. Abdomen 1 view (Generic) (Exam End: 09/18/2024 12:31 PM) Result Value WORKSTATION ID [id number] Impression Dobbhoff tube tip along the greater curve of the stomach. Thank you for letting us participate in the care of this patient. If you are a health care provider and have any questions regarding this report, please contact the number below. For patients who have questions please contact the health ocular care technician that requested your imaging first. Brain wwo Contrast (Generic) (Exam End: 09/19/2024 5:43 PM) Result Value WORKSTATION ID [id number] Impression Unchanged size of large right cerebral hemisphere ICH status post partial evacuation. Numerous small foci of decreased acute infarction both along and separate from the site of hemorrhage. These foci are present in both cerebral hemispheres and have a pattern most consistent with embolic infarction. No evidence of AUTOMOBILE DESIGNER malignancy Thank you for letting us participate in the care of this patient. If you are a health care provider and have any questions regarding this report, please contact the number below. For patients who have questions please contact the health ocular care technician that requested your imaging first. Electronically signed by: Riso Swartz MD, [facility] ([phone]), at 09/20/2024 8:[address] Head wo Contrast (Generic) (Exam End: 09/21/2024 3:50 AM) Result Value WORKSTATION ID [id number] Impression Stable hemorrhage right temporal, parietal, right posterior limb internal capsule and right thalamus. Mild progression of vasogenic edema adjacent to hemorrhage. Similar pattern and extent of local and generalized mass effect with stable subfalcine herniation and uncal herniation. Thank you for letting us participate in the care of this patient. If you are a health care provider and have any questions regarding this report, please contact the number below. For patients who have questions please contact the health ocular care technician that requested your imaging first. Electronically signed by: Armando Pan MD, [facility] ([phone]), at 09/21/2024 4:55 AM XR Abdomen 1 view (Generic) (Exam End: 09/21/2024 2:01 PM) Result Value WORKSTATION ID [id number] Impression Dobbhoff tube and enteric tube sidehole and tip is projecting over the expected location of the stomach. I have personally reviewed the image(s) and the resident's interpretation and agree with the findings, Shraddha Cox MD at 09/21/2024 3:40 PM Thank you for letting us participate in the care of this patient. If you are a health care provider and have any questions regarding this report, please contact the number below. For patients who have questions please contact the health ocular care technician that requested your imaging first. Electronically signed by: Shraddha Cox MD, [facility] ([phone]), at 09/21/2024 3:40 PM XR Chest One View (Exam End: 09/21/2024 2:01 PM) Result Value WORKSTATION ID [id number] Impression ET tube with tip projecting approximately 1.4 cm above the jonathan. Recommend retracting approximately 2 cm and follow-up imaging. New left basilar atelectasis and/or small pleural effusion. Aspiration or pneumonia could also this appearance. I Sacha Shipley MD discussed the results (Impression #1) with Bonnie Vazquez on 09/21/2024 4:42 PM and verified that the results were understood. I have personally reviewed the image(s) and the resident's interpretation and agree with the findings, Octavio Scott MD at 09/21/2024 5:09 PM Thank you for letting us participate in the care of this patient. If you are a health care provider and have any questions regarding this report, please contact the number below. For patients who have questions please contact the health ocular care technician that requested your imaging first. Electronically signed by: Octavio Scott MD, [facility] ([phone]), at 09/21/2024 5:[address] Head wo Contrast (Generic) (Exam End: 09/22/2024 4:02 AM) Result Value WORKSTATION ID [id number] Impression Stable head CT status post removal of subcutaneous drain. No new or enlarging hemorrhage. Stable pattern of mass effect Thank you for letting us participate in the care of this patient. If you are a health care provider and have any questions regarding this report, please contact the number below. For patients who have questions please contact the health ocular care technician that requested your imaging first. Electronically signed by: Armando Pan MD, [facility] ([phone]), at 09/22/2024 4:[address] Angiogram Chest for Pulmonary Embolus w Contrast (Exam End: 09/26/2024 1:37 PM) Result Value WORKSTATION ID [id number] Impression 1. No pulmonary embolism. 2. Pulmonary edema. 3. Bibasilar atelectasis. Superimposed patchy airspace opacity in the left lower lobe may represent atelectasis versus pneumonia. 4. Mild emphysema. 5. Mild cardiomegaly. Left atrial appendage occlusion device in situ. Mild multifocal coronary atherosclerosis. Correlation with echocardiography may be of benefit. 6. Unexpected Findin mm indeterminant left adrenal nodule. Per ACR white paper guidelines, follow-up CT of the Abdomen (Adrenal protocol - without and with intravenous contrast) is recommended in one year. 7. Mild sigmoid diverticulosis coli without secondary signs of acute diverticulitis. 8. Interval development of anasarca, which may be related to hypervolemia, hypoproteinemia, or combination thereof. 9. Endotracheal catheter in situ with tip 4 mm above the jonathan. Recommend retraction. 10. Enteric catheter in situ with tip terminating in the gastric pylorus. 11. Hill catheter in situ. Persistent distention of the urinary bladder. Correlation with catheter functionality is recommended. 12. Rectal catheter in situ. Thank you for letting us participate in the care of this patient. If you are a health care provider and have any questions regarding this report, please contact the number below. For patients who have questions please contact the health ocular care technician that requested your imaging first. Electronically signed by: Marvin Decker DO, [facility] ([phone]), at 09/26/2024 1:[address] Head wo Contrast (Generic) (Exam End: 09/26/2024 1:37 PM) Result Value WORKSTATION ID [id number] Impression 1. Stable right-sided parenchymal and subdural hemorrhages, associated mass effect and midline shift. 2. Stable left intraventricular hemorrhage. 3. No new or enlarging hemorrhages or extra-axial collections. Thank you for letting us participate in the care of this patient. If you are a health care provider and have any questions regarding this report, please contact the number below. For patients who have questions please contact the health ocular care technician that requested your imaging first. Electronically signed by: Smiley Cordova MD, [facility] ([phone]), at 09/26/2024 2:[address] Abdomen & Pelvis w Contrast (Exam End: 09/26/2024 1:37 PM) Result Value WORKSTATION ID [id number] Impression 1. No pulmonary embolism. 2. Pulmonary edema. 3. Bibasilar atelectasis. Superimposed patchy airspace opacity in the left lower lobe may represent atelectasis versus pneumonia. 4. Mild emphysema. 5. Mild cardiomegaly. Left atrial appendage occlusion device in situ. Mild multifocal coronary atherosclerosis. Correlation with echocardiography may be of benefit. 6. Unexpected Findin mm indeterminant left adrenal nodule. Per ACR white paper guidelines, follow-up CT of the Abdomen (Adrenal protocol - without and with intravenous contrast) is recommended in one year. 7. Mild sigmoid diverticulosis coli without secondary signs of acute diverticulitis. 8. Interval development of anasarca, which may be related to hypervolemia, hypoproteinemia, or combination thereof. 9. Endotracheal catheter in situ with tip 4 mm above the jonathan. Recommend retraction. 10. Enteric catheter in situ with tip terminating in the gastric pylorus. 11. Hill catheter in situ. Persistent distention of the urinary bladder. Correlation with catheter functionality is recommended. 12. Rectal catheter in situ. Thank you for letting us participate in the care of this patient. If you are a health care provider and have any questions regarding this report, please contact the number below. For patients who have questions please contact the health ocular care technician that requested your imaging first. Chest One View (Exam End: 09/28/2024 4:06 AM) Result Value WORKSTATION ID [id number] Impression 1. Limited examination. 2. Interval removal of the endotracheal catheter. 3. Stable position of other medical hardware. 4. Decreased but persistent patchy left retrocardiac airspace opacity, may be resolving atelectasis or pneumonia. Thank you for letting us participate in the care of this patient. If you are a health care provider and have any questions regarding this report, please contact the number below. For patients who have questions please contact the health ocular care technician that requested your imaging first. Chest One View (Exam End: 09/28/2024 7:58 PM) Result Value WORKSTATION ID [id number] Impression 1. Slightly increased opacity in the left lower lung which may be due to atelectasis, aspiration or pneumonia. 2. Small bilateral pleural effusions. Thank you for letting us participate in the care of this patient. If you are a health care provider and have any questions regarding this report, please contact the number below. For patients who have questions please contact the health ocular care technician that requested your imaging first. Electronically signed by: Sammy Story MD, [facility] ([phone]), at 09/28/2024 8:09 PM XR Chest One View (Exam End: 09/29/2024 1:13 PM) Result Value WORKSTATION ID [id number] Impression 1. Limited examination. 2. Stable position of medical hardware. 3. The lung volumes are decreased, which accentuates the pulmonary vascular markings and cardiac silhouette. 4. Accounting for this, a stable mild component of congestive heart failure / fluid overload is suspected. 5. Stable moderate cardiomegaly. 6. Possible inferior subluxation of the left humerus. Correlation with patient symptomatology is recommended. If clinically indicated, further evaluation with dedicated left shoulder radiographs can be obtained. Thank you for letting us participate in the care of this patient. If you are a health care provider and have any questions regarding this report, please contact the number below. For patients who have questions please contact the health ocular care technician that requested your imaging first. Electronically signed by: Marvin Decker DO, [facility] ([phone]), at 09/30/2024 12:49 AM Assessment: 74 y.o. female with PMHx notable for Afib (taking ASA, previously on apixaban-stopped taking after IPH in April 2024), CHRISTOPHER, HLD, BMI of 36, prior IPH 04/2024 who presented to hospital 09/16/24 for placement of Watchman with cardiology. She developed headaches and nausea post op and CT scan noted large R axnkigex-vargozp-qgtejhyba IPH. Now s/p R craniotomy for IPH evacuation. Repeated CTH wo contrast post-op overnight into 09/17 showing increased hemorrhage on R but exam remains stable. Will defer further neurosurgical intervention at this time and continue to closely monitor exam. 09/18 AM noted L eye down, possible out. MRI Brain wwo on 09/19 showing small scattered infarcts c/w embolic infarcts not that would explain possible palsy. Plan: -Staple removal today -SBP 90-160 -DVT ppx with SCDs, SQH -[employer] for diet advancement -Na goal eunatremia -Rest of care per primary -f/u in 1 mos w/ CTH in clinic with JESSI -Will s/o For questions please call [employer] pager [phone] Rob Guzman MD Clinical Documentation Improvement: Active Hospital Problems Diagnosis Presence of Watchman left atrial appendage closure device S/P craniotomy Resolved Hospital Problems No resolved problems to display. * Diana Lucas OT - 09/30/2024 2:16 PM EST Occupational Therapy Treatment Note Treatment Number OT: 3 Patient Dx:Lucero Bruno is a 74 y.o. female admitted on 09/16/2024. 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 Presents to OT for evaluation of functional activity. Social History: per chart review Home Setup: Pt lives in a multi story home with all needs met on one level. Pt has a tub shower with grab bars. Social support: Pt lives alone. Pt has a significant other and a son in the area. Pt lives with her two cats Jose A and Whoolio DME: Cane Tub grab bar Baseline ADL/Mobility: Pt was independent at baseline with use of cane. 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 Pt has a 1/2 acre of flower beds. Precautions/Special Considerations: Falls, supplemental O2 via NC, NPO, NGT, hill, AAT, SBP 90-160, full code Patient Lines/Drains/Airways Status Active Tubes/Lines/Drains Name Placement date Placement time Site Days Percutaneous Central Line 09/17/24 1405 Triple Lumen subclavian vein, right 09/17/24 1405 -- 13 Urethral Catheter 09/16/24 latex 14 5 10 09/16/24 -- -- 14 Naso/Oral Tube 09/18/24 1229 small bore;nonweighted right nostril 09/18/24 1229 right nostril 12 Activity Orders: Activity Orders (From admission to next 72h) Start Ordered Unscheduled Activity as tolerated PRN 09/16/24 2205 Unscheduled Up with assistance PRN 09/16/24 2205 S: Pt received in bed without visitors present. Pt agreeable to OT treatment session this date. Pt A&Ox2, on HFNC, and VSS. Wrote: What is the weight capacity? (Regarding overhead lift) O: Patient seen for skilled OT treatment, and demonstrated the following: Self-care/Functional Mobility: Supine>sit max A x2 Sit EOB mod-max a ~20 mins Washed face: set up A Recliner chair transfer dependent on ceiling lift Positioned LUE on pillow and issued sling Cognition: Behavior / Mood: alert, cooperative, confused, and impaired task initiation Alert and oriented to: person and place Follows commands: 1 step and 2 step Attention: difficulty attending to task/directions Safety awareness: decreased insight into deficits Vision: Unable to track past midline R gaze preference L inattention Communication Thumbs up vs down Nod yes/no gestures Writing Endurance/Vitals: Pt on HFNC at 45% FiO2, reports no dizziness, lightheadedness, and VSS BP 119/65(83) SpO2 98% HR 89 Strength/ROM: Cervical ROM:decreased L RUE elbow/hand full ROM, RUE shoulder flexion AAROM LUE full PROM, no AROM, subluxed shoulder, edema in hand, positioned on pillow, OT issued sling Pain: endorsed pain in LUE shoulder Education: Pt education ongoing regarding: Role of Occupational Therapy, Reorientation, Range of motion , Exercises , Activity tolerance, Positioning, Safety during ADL's and functional mobility , Alternating rest/activity , Increased participation in self-care and ADL's within hospital environment, Use of AE, DME recommendations , L inattention , and Goals Staff Communication: Handoff given to RN including pt's location, pain, and pertinent information at cessation of session. ASSESSMENT: Pt seen for OT treatment session this date to progress ADL tasks. Pt tolerated EOB sitting well this date and was able to wash face with set up A. Pt unable to track to L side at all. OT fitted pt for LUE sling d/t 1 finger sublux. Pt encouraged to keep communicating through writing. Ptwill benefit from ongoing therapeutic interventions to achieve pt's and therapy goals Anticipated Discharge Disposition (OT): [facility] facility Equipment Recommendations: Equipment Needs Upon Discharge (OT): to be determined Daily schedule / Staff Recommendations: EPM Level 2: Bed-Chair position, Mechanically lift to chair, Participate in self care Utilize upright chair position using bed features or transfer to recliner chair as appropriate withlift Frequent orientation verbally & visually with calendars/clocks/whiteboard Facilitate a normal sleep-wake cycle (minimize nighttime distractions when possible, lights on/shades up during the day) Provide brief, clear instructions and directions from one source at a time Reduce extraneous stimulation Encourage use of coping & calming strategies Support LUE on pillow of in sling Occupational Therapy Goals: To be achieved by 11/13/24. Pt will be consistently A&Ox4 and CAM (-) Pt will complete UBD with min A using compensatory strategies/LRAD prn. Pt will complete UB bathing with min A using compensatory strategies/LRAD prn. Pt will complete 2-3 grooming tasks at in supported sitting with set up A. Pt will complete BUE HEP to improve functional use of ADLs Therapy Frequency (OT): 2-3 times/wk Total Minutes, Occupational Therapy: 36 ([phone]) Diana Lucas, OTR/L They/Them Occupational Therapy Rehabilitation Department Pager # [phone] * Agustin Loving PA - 09/30/2024 12:26 PM EST Patient is POD #14. Incision healing well, mild eschar postauricularly. All stacey removed. Mild irritation at site of high-flow O2 band, nursing will pad the band itself for protection. F/U outpatient as outlined, [address] brain. Patient tolerated procedure well. * Lamont Holm SLP - 09/30/2024 11:06 AM EST Speech Therapy Note Patient Profile: Lucero Bruno is a 74 y.o. female with PMHx of A-fib, CHRISTOPHER, HLD, and prior IPH (04/2024) who presented to [facility] on 09/16/2024 for placement of Watchman with cardiology. She developed headaches and nausea post-operatively and was found to have a large R usgvxcdl-enopfjx-yjnjudzes IPH, now s/p craniotomy. Patient was intubated from 09/16-09/21 with extubation complicated by stridor requiring re-intubation from 09/21-09/26 (11 days total). [employer] has been following since 09/27 for communication and dysphagia management. Interval History: Increased congestion and O2 requirement- now HFNC Recent Imagin09/29/24 XR Chest One View IMPRESSION 1. Limited examination. 2. Stable position of medical hardware. 3. The lung volumes are decreased, which accentuates the pulmonary vascular markings and cardiac silhouette. 4. Accounting for this, a stable mild component of congestive heart failure / fluid overload is suspected. 5. Stable moderate cardiomegaly. 6. Possible inferior subluxation of the left humerus. Correlation with patient symptomatology is recommended. If clinically indicated, further evaluation with dedicated left shoulder radiographs can be obtained. Subjective: Patient was encountered at bedside w/ significant other, Chase, initially present. Hedemonstrated some of the writing communication that pt had with him, with meaningful expressions such as I love you. Pt demonstrated increased fatigue. Objective: Patient seen for dysphagia management and demonstrated the following: Pain: Pt appeared comfortable Respiratory Status: High flow nasal cannula 35 L/min 45 % Current Diet: NPO diet (Give Meds), NGT Feeding / Oral Care Status: Patient requires cues and/or assistance due to significant motor limitations; appeared more dependent during this session given reduced activity endurance and increased fatigue Cognitive-Linguistic Status: Awake and alert Fully oriented when assessed using Y/N questions Delayed response to Y/N questions head nods and hand gestures Writing is reasonably intelligible at the word and phrase levels; able to independently request clipboard using hand gestures Command Following: Follows single step commands within motor constraints Positioning: HOB at 50 degrees Oral Motor Examination: WFL Impaired Comments STRUCTURES Facial Symmetry X Left facial droop Lips X Reduced retraction bilaterally, more pronounced on L Tongue X Deviates L on minimal protrusion; slightly improved ROM and agility with poor coordination Jaw X Reduced jaw opening Palate/Velum X Dentition X Missing right upper teeth and multiple others; visible decay; completed oral care usingsuction toothbrush prior to completing PO trials OTHER Phonation X Phonation attempted but appeared to be aphonic Intelligibility X Unable to verbalize Volitional Cough X Reduced Sensation X strongly suspect L sensory impairment vs. inattention Secretion Management X No significant secretions today Bolus Presentation(s): Tested Comments Thin liquids [place] thick liquids Honey thick liquids Pureed solids Dysphagia soft Mechanical soft Regular solids Pills Other x ice chip x1 Oral Preparatory Phase Mastication: N/A Oral transit: Poor lingual movement and control with sluggish attempts at A-P transit Bolus cohesion: Suspect reduced due to poor lingual movement and control Oral containment: bolus holding prior to swallow initiation, negative anterior loss Oral stasis: none Pharyngeal Phase Swallow initiation: suspect delay Vocal quality change: None Cough / throat clear: none Pt complaint of food getting stuck: no, trials too limited Fatigue across trials: yes Respiratory rate and respiratory swallow pattern: pt w/WOB and increased oxygen support needs at this time Esophageal Observations Unable to comment meaningfully with limited trials Compensatory Techniques: 1:1 feeding assistance, extended time, verbal cues to attempt oral manipulation Education: Patient and SO educated on results and recommendations, and verbalized understanding. Patient status and swallow recommendations were discussed with nursing. Assessment: Aubree was seen today for communication and dysphagia management. Pt demonstrated increased WOB with additional needs for oxygen support as well as reduced activity tolerance and increased fatigue. Cognitive-Communication Aubree was awake and alert, but became increasingly fatigue and indicated that she wished to rest. She consistently responded to Y/N questions with inconsistent mode of response, using a combination ofeither head nod or hand gesture. Pt had written some meaningful words and phrases to her significant other and participated in limited writing w/[employer], primarily single words. Aubree remains unable to verbalize spontaneously or to command. Aubree also continues to present with left inattention and a right gaze preference and was unable to cross midline despite cues. She had L homonymous hemianopsia prior to this admission. Swallowing Aubree continues to present with significant oral motor impairment. Today, she was only able to tolerate extensive oral care and 1 ice chip. Aubree's swallow was characterized by sluggish and disorganized lingual movements with eventual swallow initiation following a prolonged period of oral holding. No cough was seen but trial was also very limited given increased fatigue as well as increased respiratory support needs. Aubree will benefit from ongoing swallow stimulation. Please provide single ice chips when she is alert and accepting. [employer] will continue to follow for serial reassessment, likely including an instrumental evaluation once she can more reliably tolerate PO intake. Diagnosis: Oral and suspected pharyngeal dysphagia 2/2 IPH, dysphonia 2/2 IPH vs. mutliple prolonged and reportedly traumatic intubations Recommendations: Diet: NPO, May offer individual ice chips for pleasure / practice TF via NGT Ice Chip Protocol This protocol allows patients who are NPO (nothing by mouth) to have ice chips under certain conditions in order to promote oral hydration and prevent atrophy of the swallowing muscles. It is based on evidence indicating that aspiration of small amounts of water is a benign event - unlike juice, soda or coffee, water has a neutral pH level. Therefore, it is well tolerated by the lungs and is quickly absorbed into the bloodstream. Guidelines: Ensure patient is alert, awake, and stable from a respiratory standpoint. Ensure patient is sitting upright. Provide frequent and thorough oral care. Oral care must be provided before giving ice chips Patient may have ice chips following oral care: Provide small single ice chips, one at a time. Allow adequate time after each ice chip for patient to cough or clear their throat if needed. Provide no more than a few (~1-5) ice chips in one sitting. Stop giving ice chips if patient fatigues or becomes uncomfortable. PO Medications: IV or other alternative means only Aspiration Precautions: Sit upright with all PO intake Single ice chips only Patient will require feeding assistance Excellent oral care to reduce risk of aspiration pneumonia Speech Therapy Goals: Pt will tolerate the least restrictive diet without further respiratory decompensation. ONGOING Pt will be independent with aspiration precautions, diet modifications, and safe swallowing strategies. ONGOING Pt will participate in ongoing cognitive-communication assessment Plan: Therapy Frequency ([employer] Eval): 3-5 times/wk Patient is in agreement with the plan of care. Total Minutes (Speech Language Pathology): 24 Lamont Holm MS, CCC-[employer] Speech-Language Pathology Inpatient Rehabilitation Department Pager # [phone] * Gissell Velazco MD - 09/30/2024 8:02 AM EST Neurology Progress Note Patient name: Lucero Bruno Date of : 1950 PCP: Leila Manjarrez Stroke Assessment: Date last well known:: 09/16/24 Time last well known:: 1619 Date of discovery of symptoms:: 09/16/24 Time of discovery of symptoms:: 1619 The time difference from patients last known well to ED arrival OR inpatient stroke alert was (choose one): Less than or equal to 4.5 hours Date acute stroke team was at bedside:: 09/16/24 Time acute stroke team was at bedside:: 1645 CT interpretation date: 09/16/24 CT interpretation time:: 1445 Was dysphagia screen performed?: No CC: [facility] ID: Lucero Bruno is a 74 y.o. female with PMH of R occipital hemorrhage, chronic a-fib presented for watchman procedure. Post operatively at approximately 4:20 pm began complaining of severe 10/10 headache, taken to CTH were an enlarged R IPH with mass effect and midline shift was identified. Stroke alert called. At that time NIHSS 22. SBP in 130s. BG 202. She was subsequently intubated and taken to surgery for Craniotomy with evaluation by neurosurgery followed by admission to NCCU for further monitoring. Course complicated by failed extubation. She was re-extubated on 09/26 and vascular neurology re- engaged for possible downgrade. Interval Hx: - Placed on 40L oxygen overnight - No other acute complaints Physical Exam: GCS Scale Vitals: Temp: [36.3 ??C (97.4 ??F)-37.2 ??C (99 ??F)] Heart Rate: [64-99] Resp: [19-29] BP: (107-132)/(44-105) SpO2: [90 %-100 %] Heart Rate from SpO2: [64 bpm-99 bpm] NG tube in place. Does not appear in acute distress GEN-following commands on the R upper extremity and bilateral lowers. Mute with no verbal output. Able to give thumbs up/down to communicate. Stridor present with breathing. 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 Difficulty looking left. MOTOR- no movement in the left upper extremity/left lower SENSATION -nods yes to sensory testing on the right. No response on the left. Possible component ofleft hemineglect. CEREBELLUM -finger to nose intact on right though with difficulty. REFLEXES - bilateral dalton and babinski with diffusely brisk reflexes. NIH Stroke Scale NIH Stroke Scale Date 09/16/24 NIH Stroke Scale Time 1645 Level of Consciousness 0 LOC Questions 2 LOC Commands 0 Best Gaze 1 Vision 2 Facial Palsy 0 Motor Arm, Left 4 Motor Arm, Right 0 Motor Leg, Left 4 Motor Leg, Right 0 Limb Ataxia 0 Sensory 2 Best Language 3 Dysarthria 2 Extinction and Inattention: 2 NIH Total Score 22 Labs: Recent Results (from the past 24 hour(s)) POC, GLUCOSE Result Value Ref Range Glucometer, POC 126 65 - 199 mg/dL POC, GLUCOSE Result Value Ref Range Glucometer, POC 135 65 - 199 mg/dL POC, GLUCOSE Result Value Ref Range Glucometer, POC 121 65 - 199 mg/dL POC, GLUCOSE Result Value Ref Range Glucometer, POC 109 65 - 199 mg/dL POC, GLUCOSE Result Value Ref Range Glucometer, POC 133 65 - 199 mg/dL CBC (with Diff) Result Value Ref Range White Blood Cell 25.89 (H) 4.00 - 9.50 x10(3)/mcL Red Blood Cell 3.34 (L) 4.00 - 5.21 x10(6)/mcL Hemoglobin 10.1 (L) 11.7 - 15.5 g/dL Hematocrit 31.0 (L) 35.7 - 45.8 % Mean Cell Volume 92.8 82.6 - 94.4 fL Mean Cell Hemoglobin 30.2 27.1 - 32.0 pg Mean Cell Hemoglobin Concentration 32.6 31.7 - 35.0 g/dL Platelet 376 (H) 145 - 357 x10(3)/mcL Mean Platelet Volume 9.7 7.6 - 12.9 fL RDW Standard Deviation 46.5 (H) 37.0 - 46.0 fL RDW coefficient of variation 14.2 (H) 11.5 - 14.1 % NRBC% auto 0.0 % NRBC Absolute <0.01 <0.01 x10(3)/mcL Neutrophil % 85.9 % Neutrophil Absolute (ANC) - Automated 22.26 (H) 1.70 - 6.10 x10(3)/mcL Lymph % 5.1 % Lymph Absolute 1.33 0.90 - 3.20 x10(3)/mcL Monocyte % 5.6 % Monocyte Absolute 1.44 (H) 0.30 - 0.90 x10(3)/mcL Eos % 1.2 % Eos Absolute 0.30 0.00 - 0.40 x10(3)/mcL Basophil % 0.2 % Baso Absolute 0.05 0.00 - 0.10 x10(3)/mcL Immature Gran % 2.0 % Immature Gran Absolute 0.51 (H) 0.00 - 0.04 x10(3)/mcL Basic Metabolic Panel Result Value Ref Range Glucose 141 65 - 199 mg/dL Blood Urea Nitrogen 16 8 - 18 mg/dL Creatinine 0.47 (L) 0.70 - 1.20 mg/dL Sodium 139 135 - 145 mMol/L Potassium 3.9 3.5 - 5.0 mMol/L Chloride 104 98 - 107 mMol/L Carbon Dioxide 25 22 - 31 mMol/L Anion Gap 10 5 - 15 mMol/L Calcium 8.4 (L) 8.5 - 10.5 mg/dL Est Glomerular Filtration Rate - Female 101 mL/min/1.73 m?? Magnesium Result Value Ref Range Magnesium 0.79 0.69 - 1.07 mMol/L Phosphorus Result Value Ref Range Phosphorus 2.9 2.5 - 4.5 mg/dL POC, GLUCOSE Result Value Ref Range Glucometer, POC 165 65 - 199 mg/dL Results for orders placed or performed during the hospital encounter of 09/16/24 CT Head wo Contrast (Generic) (Exam End: 09/16/2024 5:26 PM) Result Value WORKSTATION ID [id number] Impression Interval expansion of now large right-sided temporal occipital intraparenchymal hemorrhage with significant mass effect resulting in 1 cm leftward midline shift. Per chart review, this patient was seen by neurosurgery and taken emergently to the OR. I have personally reviewed the image(s) and the resident's interpretation and agree with the findings, Lana Reinoso at 09/16/2024 6:01 PM Thank you for letting us participate in the care of this patient. If you are a health care provider and have any questions regarding this report, please contact the number below. For patients who have questions please contact the health ocular care technician that requested your imaging first. Electronically signed by: Lana Reinoso [facility] ([phone]), at 09/16/2024 6:[address] Head wo Contrast (Generic) (Exam End: 09/16/2024 11:21 PM) Result Value WORKSTATION ID [id number] Impression CT head: 1. Interval craniotomy with residual or recurrent hemorrhage right temporal and parietal lobe. 2. New hemorrhage right [...] in the care of this patient. If you are a health care provider and have any questions regarding this report, please contact the number below. For patients who have questions please contact the health ocular care technician that requested your imaging first. Electronically signed by: Armando Pan MD, [facility] ([phone]), at 09/17/2024 1:[address] Venogram Brain (Exam End: 09/16/2024 11:21 PM) Result Value WORKSTATION ID [id number] Impression CT head: 1. Interval craniotomy with residual or recurrent hemorrhage right temporal and parietal lobe. 2. New hemorrhage right [...] in the care of this patient. If you are a health care provider and have any questions regarding this report, please contact the number below. For patients who have questions please contact the health ocular care technician that requested your imaging first. Electronically signed by: Armando Pan MD, [facility] ([phone]), at 09/17/2024 1:42 AM XR Chest One View (Exam End: 09/16/2024 11:00 PM) Result Value WORKSTATION ID [id number] Impression Satisfactorily positioned enteric and endotracheal tubes. Left lower lobe atelectasis versus pneumonia. Thank you for letting us participate in the care of this patient. If you are a health care provider and have any questions regarding this report, please contact the number below. For patients who have questions please contact the health ocular care technician that requested your imaging first. Electronically signed by: Pamela Beard MD, [facility] ([phone]), at 09/17/2024 12:09 AM XR Abdomen 1 view (Generic) (Exam End: 09/16/2024 11:00 PM) Result Value WORKSTATION ID [id number] Impression Satisfactorily positioned enteric and endotracheal tubes. Left lower lobe atelectasis versus pneumonia. Thank you for letting us participate in the care of this patient. If you are a health care provider and have any questions regarding this report, please contact the number below. For patients who have questions please contact the health ocular care technician that requested your imaging first. Electronically signed by: Pamela Beard MD, [facility] ([phone]), at 09/17/2024 12:[address] Head wo Contrast (Generic) (Exam End: 09/17/2024 4:51 AM) Result Value WORKSTATION ID [id number] Impression Increased size and density of dominant right parietal hematoma, and of hemorrhage extending medially into the basal ganglia. Foci of thalamocapsular hemorrhage on the right are stable. No evidence of progressive intraventricular hemorrhage or ventricular dilation. No definitive increase in leftward midline shift or herniation. Thank you for letting us participate in the care of this patient. If you are a health care provider and have any questions regarding this report, please contact the number below. For patients who have questions please contact the health ocular care technician that requested your imaging first. Electronically signed by: Elvin Bolden DO, [facility] ([phone]), at 09/17/2024 8:38 AM XR Chest One View (Exam End: 09/17/2024 2:13 PM) Result Value WORKSTATION ID [id number] Impression 1. No focal opacity in lung 2. Pulmonary edema, progressed since last examination. 3. Tip of ET tube is 23 mm superior cuff to jonathan. Consider adjustment. 4. Sidehole and tip of NG tube is below the diaphragm. Thank you for letting us participate in the care of this patient. If you are a health care provider and have any questions regarding this report, please contact the number below. For patients who have questions please contact the health ocular care technician that requested your imaging first. Electronically signed by: Zoey Zabala MD, [facility] ([phone]), at 09/17/2024 2:43 PM XR Chest One View (Exam End: 09/18/2024 8:43 AM) Result Value WORKSTATION ID [id number] Impression Tubes and lines as described. Blunting of the left costophrenic angle suggests tiny layering left effusion with associated left basilar consolidation/atelectasis Thank you for letting us participate in the care of this patient. If you are a health care provider and have any questions regarding this report, please contact the number below. For patients who have questions please contact the health ocular care technician that requested your imaging first. Abdomen 1 view (Generic) (Exam End: 09/18/2024 12:31 PM) Result Value WORKSTATION ID [id number] Impression Dobbhoff tube tip along the greater curve of the stomach. Thank you for letting us participate in the care of this patient. If you are a health care provider and have any questions regarding this report, please contact the number below. For patients who have questions please contact the health ocular care technician that requested your imaging first. Brain wwo Contrast (Generic) (Exam End: 09/19/2024 5:43 PM) Result Value WORKSTATION ID [id number] Impression Unchanged size of large right cerebral hemisphere ICH status post partial evacuation. Numerous small foci of decreased acute infarction both along and separate from the site of hemorrhage. These foci are present in both cerebral hemispheres and have a pattern most consistent with embolic infarction. No evidence of [employer] malignancy Thank you for letting us participate in the care of this patient. If you are a health care provider and have any questions regarding this report, please contact the number below. For patients who have questions please contact the health ocular care technician that requested your imaging first. Electronically signed by: Rios Swartz MD, [facility] ([phone]), at 09/20/2024 8:[address] Head wo Contrast (Generic) (Exam End: 09/21/2024 3:50 AM) Result Value WORKSTATION ID [id number] Impression Stable hemorrhage right temporal, parietal, right posterior limb internal capsule and right thalamus. Mild progression of vasogenic edema adjacent to hemorrhage. Similar pattern and extent of local and generalized mass effect with stable subfalcine herniation and uncal herniation. Thank you for letting us participate in the care of this patient. If you are a health care provider and have any questions regarding this report, please contact the number below. For patients who have questions please contact the health ocular care technician that requested your imaging first. Electronically signed by: Armando Pan MD, [facility] ([phone]), at 09/21/2024 4:55 AM XR Abdomen 1 view (Generic) (Exam End: 09/21/2024 2:01 PM) Result Value WORKSTATION ID [id number] Impression Dobbhoff tube and enteric tube sidehole and tip is projecting over the expected location of the stomach. I have personally reviewed the image(s) and the resident's interpretation and agree with the findings, Shraddha Cox MD at 09/21/2024 3:40 PM Thank you for letting us participate in the care of this patient. If you are a health care provider and have any questions regarding this report, please contact the number below. For patients who have questions please contact the health ocular care technician that requested your imaging first. Electronically signed by: Shraddha Cox MD, [facility] ([phone]), at 09/21/2024 3:40 PM XR Chest One View (Exam End: 09/21/2024 2:01 PM) Result Value WORKSTATION ID [id number] Impression ET tube with tip projecting approximately 1.4 cm above the jonathan. Recommend retracting approximately 2 cm and follow-up imaging. New left basilar atelectasis and/or small pleural effusion. Aspiration or pneumonia could also this appearance. I Sacha Shipley MD discussed the results (Impression #1) with Bonnie Vazquez on 09/21/2024 4:42 PM and verified that the results were understood. I have personally reviewed the image(s) and the resident's interpretation and agree with the findings, Octavio Scott MD at 09/21/2024 5:09 PM Thank you for letting us participate in the care of this patient. If you are a health care provider and have any questions regarding this report, please contact the number below. For patients who have questions please contact the health ocular care technician that requested your imaging first. Electronically signed by: Octavio Scott MD, [facility] ([phone]), at 09/21/2024 5:[address] Head wo Contrast (Generic) (Exam End: 09/22/2024 4:02 AM) Result Value WORKSTATION ID [id number] Impression Stable head CT status post removal of subcutaneous drain. No new or enlarging hemorrhage. Stable pattern of mass effect Thank you for letting us participate in the care of this patient. If you are a health care provider and have any questions regarding this report, please contact the number below. For patients who have questions please contact the health ocular care technician that requested your imaging first. Electronically signed by: Armando Pan MD, [facility] ([phone]), at 09/22/2024 4:[address] Angiogram Chest for Pulmonary Embolus w Contrast (Exam End: 09/26/2024 1:37 PM) Result Value WORKSTATION ID [id number] Impression 1. No pulmonary embolism. 2. Pulmonary edema. 3. Bibasilar atelectasis. Superimposed patchy airspace opacity in the left lower lobe may represent atelectasis versus pneumonia. 4. Mild emphysema. 5. Mild cardiomegaly. Left atrial appendage occlusion device in situ. Mild multifocal coronary atherosclerosis. Correlation with echocardiography may be of benefit. 6. Unexpected Findin mm indeterminant left adrenal nodule. Per ACR white paper guidelines, follow-up CT of the Abdomen (Adrenal protocol - without and with intravenous contrast) is recommended in one year. 7. Mild sigmoid diverticulosis coli without secondary signs of acute diverticulitis. 8. Interval development of anasarca, which may be related to hypervolemia, hypoproteinemia, or combination thereof. 9. Endotracheal catheter in situ with tip 4 mm above the jonathan. Recommend retraction. 10. Enteric catheter in situ with tip terminating in the gastric pylorus. 11. Hill catheter in situ. Persistent distention of the urinary bladder. Correlation with catheter functionality is recommended. 12. Rectal catheter in situ. Thank you for letting us participate in the care of this patient. If you are a health care provider and have any questions regarding this report, please contact the number below. For patients who have questions please contact the health ocular care technician that requested your imaging first. Electronically signed by: Marvin Decker DO, [facility] ([phone]), at 09/26/2024 1:[address] Head wo Contrast (Generic) (Exam End: 09/26/2024 1:37 PM) Result Value WORKSTATION ID [id number] Impression 1. Stable right-sided parenchymal and subdural hemorrhages, associated mass effect and midline shift. 2. Stable left intraventricular hemorrhage. 3. No new or enlarging hemorrhages or extra-axial collections. Thank you for letting us participate in the care of this patient. If you are a health care provider and have any questions regarding this report, please contact the number below. For patients who have questions please contact the health ocular care technician that requested your imaging first. Abdomen & Pelvis w Contrast (Exam End: 09/26/2024 1:37 PM) Result Value WORKSTATION ID [id number] Impression 1. No pulmonary embolism. 2. Pulmonary edema. 3. Bibasilar atelectasis. Superimposed patchy airspace opacity in the left lower lobe may represent atelectasis versus pneumonia. 4. Mild emphysema. 5. Mild cardiomegaly. Left atrial appendage occlusion device in situ. Mild multifocal coronary atherosclerosis. Correlation with echocardiography may be of benefit. 6. Unexpected Findin mm indeterminant left adrenal nodule. Per ACR white paper guidelines, follow-up CT of the Abdomen (Adrenal protocol - without and with intravenous contrast) is recommended in one year. 7. Mild sigmoid diverticulosis coli without secondary signs of acute diverticulitis. 8. Interval development of anasarca, which may be related to hypervolemia, hypoproteinemia, or combination thereof. 9. Endotracheal catheter in situ with tip 4 mm above the jonathan. Recommend retraction. 10. Enteric catheter in situ with tip terminating in the gastric pylorus. 11. Hill catheter in situ. Persistent distention of the urinary bladder. Correlation with catheter functionality is recommended. 12. Rectal catheter in situ. Thank you for letting us participate in the care of this patient. If you are a health care provider and have any questions regarding this report, please contact the number below. For patients who have questions please contact the health ocular care technician that requested your imaging first. Electronically signed by: Marvin Decker DO, [facility] ([phone]), at 09/26/2024 1:54 PM XR Chest One View (Exam End: 09/28/2024 4:06 AM) Result Value WORKSTATION ID [id number] Impression 1. Limited examination. 2. Interval removal of the endotracheal catheter. 3. Stable position of other medical hardware. 4. Decreased but persistent patchy left retrocardiac airspace opacity, may be resolving atelectasis or pneumonia. Thank you for letting us participate in the care of this patient. If you are a health care provider and have any questions regarding this report, please contact the number below. For patients who have questions please contact the health ocular care technician that requested your imaging first. Chest One View (Exam End: 09/28/2024 7:58 PM) Result Value WORKSTATION ID [id number] Impression 1. Slightly increased opacity in the left lower lung which may be due to atelectasis, aspiration or pneumonia. 2. Small bilateral pleural effusions. Thank you for letting us participate in the care of this patient. If you are a health care provider and have any questions regarding this report, please contact the number below. For patients who have questions please contact the health ocular care technician that requested your imaging first. Electronically signed by: Sammy Story MD, [facility] ([phone]), at 09/28/2024 8:09 PM XR Chest One View (Exam End: 09/29/2024 1:13 PM) Result Value WORKSTATION ID [id number] Impression 1. Limited examination. 2. Stable position of medical hardware. 3. The lung volumes are decreased, which accentuates the pulmonary vascular markings and cardiac silhouette. 4. Accounting for this, a stable mild component of congestive heart failure / fluid overload is suspected. 5. Stable moderate cardiomegaly. 6. Possible inferior subluxation of the left humerus. Correlation with patient symptomatology is recommended. If clinically indicated, further evaluation with dedicated left shoulder radiographs can be obtained. Thank you for letting us participate in the care of this patient. If you are a health care provider and have any questions regarding this report, please contact the number below. For patients who have questions please contact the health ocular care technician that requested your imaging first. Electronically signed by: Marvin Decker DO, [facility] ([phone]), at 09/30/2024 12:49 AM Assessment and Plan: Lucero Bruno is a 74 y.o. female w/ PMH of R occipital hemorrhage, chronic a-fib presented forwatchman procedure. Post operatively at approximately 4:20 pm began complaining of severe 10/10 headache, taken to [facility] were an enlarged R IPH with mass effect and midline shift was identified. Strokealert called. At the time of my assessment patient is alert, following commands, moving her right si de and able to sustain antigravity. Unable to move left side. Pinpoint un- reactive L pupil and blown pupil on the right. NIHSS 22. SBP in 130s. BG 202. 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 Neurosurgery was engaged, patient receivedcraniotomy and admitted to NCCU for monitoring. NCCU course was complicated by failed extubation. She was re-extubated on 09/26 and has remained clinically stable. 09/30 White cell continues to downtrend, last day of zosyn today per ID recs. CXR results above, will trial furosemide to decrease fluid overload contributing to increased oxygen requirements. Will reach out to IR regarding PEG tube placement. Patient is able to write and communicate through clipboard. Alteplase: IV Thrombolytics decision time: 1714 Was IV Thrombolytics given?: No # R IPH -Admit to neurology, NSCU level of care -Neuro check & vitals Q2hrs / Q2hrs -Permissive HTN, treat SBP >220 with prn labetalol, enalaprilat -Check CBC, BMP, LFT, lipid profile, HbA1c, Mg, Phos, UA -TTE -12 lead EKG -Telemetry -MRI brain wo contrast -CTA head & neck -PT/OT/[employer]MER -Neurosurgery consulted # Leukocytosis # Pneumonia - repeat CXR 09/29 - on Zosyn (09/24 - 09/29) - CBC - ID consult - C. Diff negative # Prophylaxis -Lovenox 40 mg QHS -RBOs -SCDs # Supportive Care -Pantoprazole 40 mg IV -NPO, consulting IR regarding PEG tube placement -Tylenol PRN -Up with assistance # FULL code Stroke Navigator Completed: Yes Jung Yun MD Vascular Neurology Pager [phone] Neurology Attending Attestation I evaluated the patient with the Stroke Team during bedside rounds. I have reviewed the medical records and patient's history, as well as the resident???s history and examination findings and I agreewith the details as written. My neurologic examination confirms the resident???s findings. We formulated the assessment and plan after a detailed discussion, as documented. Gissell Velazco MD Vascular Neurology Standard [facility] Swallow Screen: This screen is to be used to document a Swallow Screen prior to ingestion of water and /or oral medications for patients with possible stroke (Ischemic or Hemorrhagic). Exclusion Criteria: A swallow screen is not to be performed on patients who: have a decreased level of consciousness. are not able to follow simple commands. are hypoxic, or have increasing O2 needs or may need to be intubated. have a G/J tube for nutrition. have a recent history of a swallowing disorder *These patients should remain NPO (HOLD MEDS) and the physician notified for further orders. Swallow Screen Using Water: None of the Exclusion Criteria as mentioned above is present? Patient is alert and sitting upright? Able to close lips and tongue is midline? Able to cough, manage oral secretions with dry voice? ONLY IF ABOVE ALL YES, Able to swallow 30 ml of water without coughing, displaying a wet voice or choking? Repeat Twice. If YES to all responses, proceed with water and oral medications as well as diet as medical provider deems appropriate. Consider [employer] consult for full evaluation and diet recommendations. If NO to any of the responses, stop immediately, keep patient NPO and notify physician. * Daniel Griffith RCP - 09/30/2024 5:26 AM EST Respiratory Therapy Heated Humidified High Flow INDICATIONS: Work of breathing and Heat/Humidification HIGH FLOW SETTINGS: Interface: High flow nasal cannula Flow: 40 L/min FiO2: 30 % VITAL SIGNS: HR: 99 RR: 22 SpO2: 94 % Daniel Griffith RCP * Areli Hathaway SLP - 09/29/2024 4:09 PM EST Speech Therapy Note Patient Profile: Lucero Bruno is a 74 y.o. female with PMHx of A-fib, CHRISTOPHER, HLD, and prior IPH (04/2024) who presented to [facility] on 09/16/2024 for placement of Watchman with cardiology. She developed headaches and nausea post-operatively and was found to have a large R [id number]-[id number] IPH, now s/p craniotomy. Patient was intubated from 09/16-09/21 with extubation complicated by stridor requiring re-intubation from 09/21-09/26 (11 days total). [employer] has been following since 09/27 for communication and dysphagia management. Interval History: Increased congestion and O2 requirement Recent Imaging: Awaiting repeat CXR Subjective: Patient was awake and engaged with care, jokingly writing, Can I fit a cheeseburger in[the G-tube]? Objective: Patient seen for dysphagia management and demonstrated the following: Pain: Denies Respiratory Status: Nasal canula 6 L/min, satting 97%; stridorous at rest Current Diet: NPO diet (Give Meds) Feeding / Oral Care Status: Patient requires cues and/or assistance due to significant motor limitations; able to accept and bring a swab or spoon to her mouth with verbal cues for direction (overshoots to L); improving) Cognitive-Linguistic Status: Awake and alert Fully oriented when assessed using Y/N questions Responding to Y/N questions promptly and appropriately using head nods and hand gestures Writing is reasonably intelligible at the word and phrase levels; able to independently request clipboard using hand gestures Command Following: Follows single step commands within motor constraints Positioning: HOB at 50 degrees Oral Motor Examination: WFL Impaired Comments STRUCTURES Facial Symmetry X Left facial droop Lips X Reduced retraction bilaterally, more pronounced on L Tongue X Deviates L on minimal protrusion; slightly improved ROM and agility with poor coordination Jaw X Reduced jaw opening Palate/Velum X Dentition X Missing right upper teeth and multiple others; visible decay; completed oral care usingsuction toothbrush prior to completing PO trials OTHER Phonation X No phonation attempts Intelligibility X Unable to verbalize Volitional Cough X Reduced Sensation X Patient reports intact; however, strongly suspect L sensory impairment vs. inattention Secretion Management X No significant secretions today Bolus Presentation(s): Tested Comments Thin liquids [place] thick liquids Honey thick liquids Pureed solids Dysphagia soft Mechanical soft Regular solids Pills X Sherbet Other Oral Preparatory Phase Mastication: N/A Oral transit: Poor lingual movement and control with sluggish attempts at A-P transit Bolus cohesion: Suspect reduced due to poor lingual movement and control Oral containment: Poor labial seal with intermittent left-sided anterior loss Oral stasis: None after a prolonged period of oral holding followed by swallow Pharyngeal Phase Swallow initiation: Present after a prolonged period of oral holding Vocal quality change: None Cough / throat clear: Sputtering (patient reports cough) with approximately 50% of Fij[place] ice trials Pt complaint of food getting stuck: None with limited volumes and consistencies Fatigue across trials: None with slow rate Respiratory rate and respiratory swallow pattern: Unlabored and coordinated Esophageal Observations Unable to comment meaningfully with limited trials Compensatory Techniques: 1:1 feeding assistance, extended time, verbal cues to attempt oral manipulation Education: Patient educated on results and recommendations, and verbalized understanding. Patient indicated agreement with the plan of care through writing (good practice in response to proposed ice chips between sessions). Patient status and swallow recommendations were discussed with nursing. Assessment: Aubree was seen today for communication and dysphagia management. She was stridorous today and reported increased difficulty breathing compared to previous sessions. Also had a moderate amount of drainage from the incision on the back of her head -- changed pillowcase and alerted RN. Cognitive-Communication Aubree was awake, alert, and fully oriented. She consistently responded to Y/N questions using a combination of head nods and hand gestures, and responded to open-ended questions through writing (wordsand short phrases). Aubree remains unable to verbalize spontaneously or to command. Aubree also continues to present with left inattention and a right gaze preference and was unable to cross midline despite cues. She had L homonymous hemianopsia prior to this admission. Swallowing Aubree continues to present with significant oral motor impairment. Today, she self-fed PO trials of sherbet. She benefited from intermittent verbal cues for physical orientation due to preexisting visual field cuts and/or inattention. Aubree's swallow was characterized by sluggish and disorganized lingual movements with eventual swallow initiation following a prolonged period of oral holding. She presented with inconsistent signs of aspiration (coughing/sputtering) in approximately 50% of trials. Aubree will benefit from ongoing swallow stimulation. Please provide single ice chips when she is alert and accepting. We will continue to follow for serial reassessment, likely including an instrumental evaluation once she can more reliably tolerate PO intake. Diagnosis: Oral and suspected pharyngeal dysphagia 2/2 IPH, dysphonia 2/2 IPH vs. mutliple prolonged and reportedly traumatic intubations Recommendations: Diet: NPO, May offer individual ice chips for pleasure / practice Ice Chip Protocol This protocol allows patients who are NPO (nothing by mouth) to have ice chips under certain conditions in order to promote oral hydration and prevent atrophy of the swallowing muscles. It is based on evidence indicating that aspiration of small amounts of water is a benign event - unlike juice, soda or coffee, water has a neutral pH level. Therefore, it is well tolerated by the lungs and is quickly absorbed into the bloodstream. Guidelines: Ensure patient is alert, awake, and stable from a respiratory standpoint. Ensure patient is sitting upright. Provide frequent and thorough oral care. Oral care must be provided before giving ice chips Patient may have ice chips following oral care: Provide small single ice chips, one at a time. Allow adequate time after each ice chip for patient to cough or clear their throat if needed. Provide no more than a few (~1-5) ice chips in one sitting. Stop giving ice chips if patient fatigues or becomes uncomfortable. PO Medications: IV or other alternative means only Aspiration Precautions: Sit upright with all PO intake Single ice chips only Patient will require feeding assistance Excellent oral care to reduce risk of aspiration pneumonia Speech Therapy Goals: Pt will tolerate the least restrictive diet without further respiratory decompensation. ONGOING Pt will be independent with aspiration precautions, diet modifications, and safe swallowing strategies. ONGOING Plan: Therapy Frequency ([employer]IMMER Eval): 3-5 times/wk Patient is in agreement with the plan of care. Total Minutes (Speech Language Pathology): 40 Areli Hathaway MS, CCC-[employer]IMMER Speech-Language Pathologist Inpatient Rehabilitation Pager # [phone] * Chino Washburn MD - 09/29/2024 2:49 PM EST Infectious Diseases Consultation Progress Note Major 24 Hour Events / Subjective: No acute events noted over the past 24 hrs. Blood cultures from 09/26 with no growth at 48hrs. Review of Systems: 10-point ROS: negative other than that stated above. Physical Exam: Temp: [36.1 ??C (96.9 ??F)-37.3 ??C (99.1 ??F)] Heart Rate: [63-107] Resp: [16-29] BP: (113-157)/(50-138) SpO2: [86 %-96 %] Heart Rate from SpO2: [63 bpm-107 bpm] General appearance: no acute distress HEENT: + NGT Lungs: clear to auscultation bilaterally Heart: normal S1-S2, no murmur Abdomen: soft, nontender Extremities: no pitting edema Lines: dressing CDI New Notable Labs/Micro: All labs reviewed, notable for the following: Labs: 09/29 WBC 26.4 Micro: 09/18 blood cultures - no growth 09/18 lower respiratory cultures - rare NURF 09/22 MRSA PCR - negative New Notable Imaging/Studies: All radiographic and other studies reviewed, notable for the following: EKG/Echo - reviewed Imaging - reviewed Procedures - reveiwed External Records in [facility] - reviewed. Impression & Recommendations: 74 year-old female with a PMH of PAF and prior right occiptal ICH who was admitted to on 09/16 to undergo Watchman procedure and subsequently developed large right ICH which required craniotomy and hematoma evacuation. She is now being treated with piperacillin-tazobactam for a HAP with Strep anginosis on BAL cultures and worsening leukocytosis. We recommended additional work-up including blood cultures and also underwent cross-sectional imaging with no new findings or site of infection identified. She is now on day 6 of piperacillin-tazobactam and we recommend discontinuing tomorrow as she will have completed an adequate course for aspiration pneumonia. + Recommendations: -Please discontinue piperacillin-tazobactam tomorrow -Follow final blood cultures from 09/26 -Check at least weekly CBC and CMP to monitor for antibiotic toxicities Recommendations shared with primary team. Case discussed with ID attending, Dr Mccarthy. Thank you for the consultation, ID team will sign off. Please page [phone] with any questions. Chino Washburn MD Infectious Disease Fellow 09/29/24 Associated attestation - Shaun Mccarthy MD - 09/29/2024 4:09 PM EST I agree with the recommendations of Dr. Gordon after discussion with her and review of her note. I also reviewed with her all pertinent labs, microbiology and radiology detailed in her note. I did not examine the patient myself today. At this time, with stable clinical course and resolving leukocytosis, I think we can provide final recommendations for antimicrobial therapy, as per Dr. Gordon. Shaun Mccarthy MD * So Guillen, RD - 09/29/2024 12:12 PM EST Nutrition Progress Note Lucero Bruno is a 74 y.o. 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 Interval History No data found. Reason for Assessment: Follow-up, Tube Feeding Nutrition Recommendations: NPO per [employer] EDGE TRIMMER 09/28 Resume TF and limit holds as able. Average tube feeding provision over past 5 days; 472 mL vs daily goal volume of 1200 mL formula (39% of goal) - <50% EER x 5 days is 1 qualifier for Severe protein calorie malnutrition Enteral Nutrition: Suggest Nutren 1.5 with a goal rate of 40 ml per hour plus 6 scoops protein powder per day. At goal, this will provide: Nutren 1.5 Total Volume Per Day: 960 mL Scoops of Protein: 6 Calories per Day: 1590 Protein per Day: 101 g Free Water mL per Day: 1033 % RDI: 96 % Monitor hydration status on above TFs as they are concentrated. Pt may need additional fluids depending on IVFs, med flushes, etc. Daily BMP w/ mag and phos Monitor lytes - replete as indicated Goal of 1 BM per 24-48 hrs on EN Goal BG <180 Daily Weights I was able to discuss plan with provider Neurology Stroke [id number] Meet the following enteral nutrition (EN) milestones to be nutritionally ready for discharge: []Patient is tolerating goal volume and schedule (cycle/bolus) of enteral regimen []Electrolytes and blood sugars have been stable x 48 hours with goal regimen []Has not required IV fluids for hydration x 48 hours []Patient or capable caregiver has received education regarding home tube feeds []Home enteral regimen has been reviewed for errors and potential barriers to insurance coverage []Identification of a provider to manage enteral nutrition outside of the hospital []Delivery of enteral formula and supplies is scheduled Patient IS NOT nutritionally ready for discharge Details/recommendations for uncompleted steps: feeds not at goal, need for remote computer terminal operator nutrition planif unable to advance diet Current Nutrition Regimen: Active Orders Diet NPO diet (Give Meds) Frequency: Effective Now Number of Occurrences: Until Specified All Active TF Orders: Tubefeeding Orders (From admission, onward) None Average tube feeding provision over past 2 days; 326 mL vs daily goal volume of 1200 mL formula (27% of goal) Tolerance or barriers to meeting needs: holds Assessment: Lab Results Component Value Date NA 138 09/28/2024 NA 141 05/08/2024 K 4.0 09/28/2024 K 4.2 05/08/2024 CL 106 09/28/2024 CL 105 05/08/2024 CO2 22 09/28/2024 CO2 25 05/08/2024 BUN 21 (H) 09/28/2024 BUN 14 05/08/2024 CREATININE 0.49 (L) 09/28/2024 CREATININE 0.68 (L) 05/08/2024 ESTGFR 100 09/28/2024 ESTGFR 92 05/08/2024 MAGNESIUM 0.77 09/29/2024 MAGNESIUM 0.85 05/08/2024 CALCIUM 8.3 (L) 09/28/2024 CALCIUM 9.2 05/08/2024 PHOS 2.7 09/28/2024 PHOS 3.1 05/08/2024 AST 28 09/26/2024 AST 15 05/08/2024 ALT 72 (H) 09/26/2024 ALT 14 05/08/2024 ALKPHOS 81 09/26/2024 ALKPHOS 92 05/08/2024 BILITOT 0.4 09/26/2024 BILITOT 0.4 05/08/2024 BILIDIR <0.2 09/26/2024 BILIDIR 0.1 05/08/2024 TRIG 95 09/20/2024 TRIG 101 05/06/2024 HA1C 6.1 (H) 09/17/2024 HA1C 6.0 (H) 05/06/2024 25OHVITD 38 11/14/2023 Lab Results Component Value Date POCGLU 135 09/29/2024 POCGLU 126 09/29/2024 POCGLU 145 09/29/2024 POCGLU 146 09/29/2024 POCGLU 131 09/28/2024 POCGLU 130 09/28/2024 POCGLU 137 09/28/2024 POCGLU 163 09/28/2024 Patient Lines/Drains/Airways Status Active Nutritional LDAs Name Placement date Placement time Site Days Naso/Oral Tube 09/18/24 1229 small bore;nonweighted right nostril 09/18/24 1229 right nostril 11 Percutaneous Central Line 09/17/24 1405 Triple Lumen subclavian vein, right 09/17/24 1405 -- 12 Urethral Catheter 09/16/24 latex 14 5 10 09/16/24 -- -- 13 Oxygen Therapy / Airway Device: Nasal cannula Shift Pressure Injury Prevention Occiput: No Injury Thoracic Spine: No Injury Sacral: No Injury Ischial - left: No Injury Ischial - right: No Injury Heel - left: No Injury Heel - right: No Injury Elbow - left: No Injury Elbow - right: No Injury Device Sites: BP Cuff, ECG Leads, flexiseal, hill, O2 sat monitor, oxygen tubing, SCD's / venodynes EEG Skin Appearance: clean, dry, intact Other Sites: CVC Last Bowel Movement: 09/28/24 Intake/Output Summary (Last 24 hours) at 09/29/2024 1212 Last data filed at 09/29/2024 0600 Gross per 24 hour Intake 205.7 ml Output 1475 ml Net -1269.3 ml Relevant medications: lispro, Thera M, Protonix, calcium gluconate (2g on 09/26), Magnesium sulfate (8g on 09/26), Zofran PRN, 40mEq KCL on 09/27, 20 mEq KCL on 09/28, Anthropometrics: Admit Weight: 88.45 kg Estimated body mass index is 36.77 kg/m?? as calculated from the following: Height as of 09/21/24: 152.4 cm (5'). Weight as of this encounter: 85.4 kg (188 lb 4.4 oz). [place] Body Weight (IBW) (kg): 45.45 Wt Readings from Last 10 Encounters: 09/28/24 85.4 kg (188 lb 4.4 oz) 09/21/24 91.3 kg (201 lb 4.5 oz) 09/18/24 91.5 kg (201 lb 11.5 oz) 07/28/24 85.3 kg (188 lb) 05/24/24 81.6 kg (180 lb) 05/08/24 84.1 kg (185 lb 6.4 oz) 05/08/24 82 kg (180 lb 12.4 oz) 04/23/24 83.9 kg (185 lb) 03/03/24 85 kg (187 lb 6.3 oz) 11/14/23 87.2 kg (192 lb 3.2 oz) Patient Vitals for the past 168 hrs: Weight 09/28/24 0600 85.4 kg (188 lb 4.4 oz) 09/24/24 0600 89.2 kg (196 lb 10.4 oz) 09/23/24 0400 89.2 kg (196 lb 10.4 oz) Weight Source: Bed Estimated / Assessed Needs: Kcal / K - 1597 Kcal (14 Kcal/Kg - 18 Kcal/Kg) Estimated Protein Needs: 91 g - 114 g (2.0 g/Kg - 2.5 g/Kg IBW) Nutrition intake and intake history / interview: 09/29: TF Dc'd 09/28 @ 1835hr. [employer] EDGE TRIMMER continues to recommend NPO, need for alternate nutrition. Updated TF recs pended as above. Pt now with <50% EER x 5 days, increasing risk for malnutrition. 09/27: TF off. Pressor off. Extubated, not cleared for PO intake. 09/23: TF held for possible extubation today, restarted this afternoon. Reassessed needs, TF recs updated. 09/21: Pt extubated and reintubated today, restarted on propofol. TF held. 09/17: Cx for TF recs. Per chart, wt has been fluctuating 82-89 kg x 10 months. No data found. Nutrition Focused Physical Exam: Not performed Malnutrition Diagnosis: Not identified (Maribel, TRACE J Parenteral Enteral Nutr. 2011; 36(3): 273-83) Nutrition to continue to follow up while inpatient ThanksSo, MS, RDN, LD Clinical Nutrition * Gissell Velazco MD - 09/29/2024 7:31 AM EST Neurology Progress Note Patient name: Lucero Bruno Date of : 1950 PCP: Leila Manjarrez Stroke Assessment: Date last well known:: 09/16/24 Time last well known:: 1620 Date of discovery of symptoms:: 09/16/24 Time of discovery of symptoms:: 1620 The time difference from patients last known well to ED arrival OR inpatient stroke alert was (choose one): Less than or equal to 4.5 hours Date acute stroke team was at bedside:: 09/16/24 Time acute stroke team was at bedside:: 1645 CT interpretation date: 09/16/24 CT interpretation time:: 1445 Was dysphagia screen performed?: No CC: R IPH ID: Lucero Bruno is a 74 y.o. female with PMH of R occipital hemorrhage, chronic a-fib presented for watchman procedure. Post operatively at approximately 4:20 pm began complaining of severe 10/10 headache, taken to [facility] were an enlarged R IPH with mass effect and midline shift was identified. Stroke alert called. At that time NIHSS 22. SBP in 130s. BG 202. She was subsequently intubated and taken to surgery for Craniotomy with evaluation by neurosurgery followed by admission to NCCU for further monitoring. Course complicated by failed extubation. She was re-extubated on 09/26 and vascular neurology re- engaged for possible downgrade. Interval Hx: - Hill replaced overnight - Added PPI - Switched to lovenox - No other complaints overnight Physical Exam: GCS Scale Vitals: Temp: [36.1 ??C (96.9 ??F)-37.3 ??C (99.1 ??F)] Heart Rate: [63-107] Resp: [16-29] BP: (97-157)/(49-138) SpO2: [86 %-98 %] Heart Rate from SpO2: [63 bpm-107 bpm] NG tube in place. Does not appear in acute distress GEN-following commands on the R upper extremity and bilateral lowers. Mute with no verbal output. Able to give thumbs up/down to communicate. Stridor present with breathing. 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 Difficulty looking left. MOTOR- no movement in the left upper extremity SENSATION -nods yes to sensory testing on the right. No response on the left. Possible component ofleft hemineglect. CEREBELLUM -finger to nose intact on right though with difficulty. REFLEXES - bilateral dalton and babinski with diffusely brisk reflexes. NIH Stroke Scale NIH Stroke Scale Date 09/16/24 NIH Stroke Scale Time 1645 Level of Consciousness 0 LOC Questions 2 LOC Commands 0 Best Gaze 1 Vision 2 Facial Palsy 0 Motor Arm, Left 4 Motor Arm, Right 0 Motor Leg, Left 4 Motor Leg, Right 0 Limb Ataxia 0 Sensory 2 Best Language 3 Dysarthria 2 Extinction and Inattention: 2 NIH Total Score 22 Labs: Recent Results (from the past 24 hour(s)) POC, GLUCOSE Result Value Ref Range Glucometer, POC 163 65 - 199 mg/dL POC, GLUCOSE Result Value Ref Range Glucometer, POC 137 65 - 199 mg/dL POC, GLUCOSE Result Value Ref Range Glucometer, POC 130 65 - 199 mg/dL POC, GLUCOSE Result Value Ref Range Glucometer, POC 131 65 - 199 mg/dL POC, GLUCOSE Result Value Ref Range Glucometer, POC 146 65 - 199 mg/dL CBC (with Diff) Result Value Ref Range White Blood Cell 26.40 (H) 4.00 - 9.50 x10(3)/mcL Red Blood Cell 3.36 (L) 4.00 - 5.21 x10(6)/mcL Hemoglobin 10.0 (L) 11.7 - 15.5 g/dL Hematocrit 30.9 (L) 35.7 - 45.8 % Mean Cell Volume 92.0 82.6 - 94.4 fL Mean Cell Hemoglobin 29.8 27.1 - 32.0 pg Mean Cell Hemoglobin Concentration 32.4 31.7 - 35.0 g/dL Platelet 397 (H) 145 - 357 x10(3)/mcL Mean Platelet Volume 10.0 7.6 - 12.9 fL RDW Standard Deviation 45.3 37.0 - 46.0 fL RDW coefficient of variation 14.0 11.5 - 14.1 % NRBC% auto 0.0 % NRBC Absolute <0.01 <0.01 x10(3)/mcL Neutrophil % 86.2 % Neutrophil Absolute (ANC) - Automated 22.77 (H) 1.70 - 6.10 x10(3)/mcL Lymph % 5.9 % Lymph Absolute 1.56 0.90 - 3.20 x10(3)/mcL Monocyte % 4.6 % Monocyte Absolute 1.21 (H) 0.30 - 0.90 x10(3)/mcL Eos % 0.8 % Eos Absolute 0.21 0.00 - 0.40 x10(3)/mcL Basophil % 0.2 % Baso Absolute 0.04 0.00 - 0.10 x10(3)/mcL Immature Gran % 2.3 % Immature Gran Absolute 0.61 (H) 0.00 - 0.04 x10(3)/mcL Magnesium Result Value Ref Range Magnesium 0.77 0.69 - 1.07 mMol/L POC, GLUCOSE Result Value Ref Range Glucometer, POC 145 65 - 199 mg/dL POC, GLUCOSE Result Value Ref Range Glucometer, POC 126 65 - 199 mg/dL Assessment and Plan: Lucero Bruno is a 74 y.o. female w/ PMH of R occipital hemorrhage, chronic a-fib presented forwatchman procedure. Post operatively at approximately 4:20 pm began complaining of severe 10/10 headache, taken to [facility] were an enlarged R IPH with mass effect and midline shift was identified. Strokealert called. At the time of my assessment patient is alert, following commands, moving her right si de and able to sustain antigravity. Unable to move left side. Pinpoint un- reactive L pupil and blown pupil on the right. NIHSS 22. SBP in 130s. BG 202. 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 Neurosurgery was engaged, patient receivedcraniotomy and admitted to NCCU for monitoring. NCCU course was complicated by failed extubation. She was re-extubated on 09/26 and has remained clinically stable. 09/29 White cell continues to downtrend. Changed from heparin to lovenox. Added PPI. Hill replaced overnight. Patient remains able to communicate non-verbally, with no acute worsening of symptoms. Repeat CXR to assess for vascular congestion leading to increased O2 requirements and persistent ronchi. Will need to have goals of care discussion and possibility of PEG tube. Alteplase: IV Thrombolytics decision time: 1714 Was IV Thrombolytics given?: No # R IPH -Admit to neurology, NSCU level of care -Neuro check & vitals Q2hrs / Q2hrs -Permissive HTN, treat SBP >220 with prn labetalol, enalaprilat -Check CBC, BMP, LFT, lipid profile, HbA1c, Mg, Phos, UA -TTE -12 lead EKG -Telemetry -MRI brain wo contrast -CTA head & neck -PT/OT/C[employer] EDGE TRIMMER -Neurosurgery consulted # Leukocytosis # Pneumonia - repeat CXR 09/29 - on Zosyn (09/24 - 09/29) - CBC - ID consult - C. Diff negative # Prophylaxis -Lovenox 40 mg QHS -RBOs -SCDs # Supportive Care -Pantoprazole 40 mg IV -NPO -Tylenol PRN -Up with assistance # FULL code Stroke Navigator Completed: Yes Jung Yun MD Vascular Neurology Pager [phone] Neurology Attending Attestation I evaluated the patient with the Stroke Team during bedside rounds. I have reviewed the medical records and patient's history, as well as the resident???s history and examination findings and I agreewith the details as written. My neurologic examination confirms the resident???s findings. We formulated the assessment and plan after a detailed discussion, as documented. Gissell Velazco MD Vascular Neurology Standard [facility] Swallow Screen: This screen is to be used to document a Swallow Screen prior to ingestion of water and /or oral medications for patients with possible stroke (Ischemic or Hemorrhagic). Exclusion Criteria: A swallow screen is not to be performed on patients who: have a decreased level of consciousness. are not able to follow simple commands. are hypoxic, or have increasing O2 needs or may need to be intubated. have a G/J tube for nutrition. have a recent history of a swallowing disorder *These patients should remain NPO (HOLD MEDS) and the physician notified for further orders. Swallow Screen Using Water: None of the Exclusion Criteria as mentioned above is present? Patient is alert and sitting upright? Able to close lips and tongue is midline? Able to cough, manage oral secretions with dry voice? ONLY IF ABOVE ALL YES, Able to swallow 30 ml of water without coughing, displaying a wet voice or choking? Repeat Twice. If YES to all responses, proceed with water and oral medications as well as diet as medical provider deems appropriate. Consider C[employer] EDGE TRIMMER consult for full evaluation and diet recommendations. If NO to any of the responses, stop immediately, keep patient NPO and notify physician. * Rob Guzman MD - 09/29/2024 7:29 AM EST [facility] [place] NEUROSURGERY PROGRESS NOTE ID: Lucero Bruno 74 y.o. female : 1950 LOS: 13 Neurosurgical Procedures this Admission: 09/16/24, Dr. Espinal: R craniotomy for IPH evacuation INTERVAL Hx: -NAEON. Neurostable. Nonverbal MEDICATIONS: Scheduled Meds: amLODIPine 5 mg Per NG tube Daily insulin lispro 0-3 Units Subcutaneous Q4H CARLY ipratropium-albuteroL 3 mL Nebulization Q4H heparin (porcine) 5,000 Units Subcutaneous Q8H CARLY insulin lispro 2-12 Units Subcutaneous Q4H CARLY dilTIAZem 90 mg Per NG tube Q6H CARLY multivitamin with minerals 1 tablet Per NG tube Daily Continuous Infusions: PRN: iohexoL, 0-200 mL, Once PRN glucose 40% oral geL, 15-30 g of glucose, Q15 Min PRN Or dextrose, 25 g, Q15 Min PRN Or glucagon, 1 mg, Q15 Min PRN iohexoL, 0-200 mL, Once PRN ondansetron, 4 mg, Q8H PRN docusate sodium, 100 mg, BID PRN And sennosides, 17.6 mg, BID PRN polyethylene glycoL (MIRALAX) oral powder, 17 g, Daily PRN labetaloL, 20 mg, Q4H PRN acetaminophen, 975 mg, Q6H PRN sodium chloride, 4 mL, Q6H PRN potassium chloride ER, 40 mEq, Q4H PRN Or potassium chloride ER, 20 mEq, Q4H PRN bisacodyL, 10 mg, Daily PRN bacitracin zinc-polymyxin B, , PRN gelatin compressed, , PRN thrombin (Bovine), , PRN EXAM: Temp: [36.1 ??C (96.9 ??F)-37.3 ??C (99.1 ??F)] Heart Rate: [63-107] Resp: [16-29] BP: (97-157)/(49-138) SpO2: [86 %-98 %] Heart Rate from SpO2: [63 bpm-107 bpm] I/O: Intake/Output Summary (Last 24 hours) at 09/29/2024 0729 Last data filed at 09/29/2024 0600 Gross per 24 hour Intake 565.7 ml Output 1775 ml Net -1209.3 ml Drains: AUBREY out 09/21 GEN: extubated - nonverbal. Resting in bed NEURO: A/ox3 with yes/no questions via thumbs up/thumbs down (name/year/place) R pupil 3mm, reactive L pupil 4mm R gaze preference, does not come to midline MOTOR: RUE: FC, thumbs up LUE: withdraws to noxious stimuli RLE: FC, wiggles toes LLE: flicker wiggles toes to command L hemianesthesia Incision CDI - stacey LABS: Recent Labs 09/29/24 01009/28/2435709/27/24137 WBC 26.40* 35.37* 39.03* HGB 10.0* 11.0* 12.5 PLATELET 397* 443* 510* Recent Labs 09/28/2435709/27/24 1646 09/27/24 0138 NA 138 -- 139 K 4.0 4.0 3.8 CL 106 -- 103 CO2 22 -- 25 BUN 21* -- 17 CREATININE 0.49* -- 0.51* No results for input(s): PT, INR in the last 72 hours. IMAGING: Results for orders placed or performed during the hospital encounter of 09/16/24 CT Head wo Contrast (Generic) (Exam End: 09/16/2024 5:26 PM) Result Value WORKSTATION ID [id number] Impression Interval expansion of now large right-sided temporal occipital intraparenchymal hemorrhage with significant mass effect resulting in 1 cm leftward midline shift. Per chart review, this patient was seen by neurosurgery and taken emergently to the OR. I have personally reviewed the image(s) and the resident's interpretation and agree with the findings, Lana Reinoso at 09/16/2024 6:01 PM Thank you for letting us participate in the care of this patient. If you are a health care provider and have any questions regarding this report, please contact the number below. For patients who have questions please contact the health ocular care technician that requested your imaging first. Electronically signed by: Lana Reinoso [facility] ([phone]), at 09/16/2024 6:[address] Head wo Contrast (Generic) (Exam End: 09/16/2024 11:21 PM) Result Value WORKSTATION ID [id number] Impression CT head: 1. Interval craniotomy with residual or recurrent hemorrhage right temporal and parietal lobe. 2. New hemorrhage right [...] in the care of this patient. If you are a health care provider and have any questions regarding this report, please contact the number below. For patients who have questions please contact the health ocular care technician that requested your imaging first. Electronically signed by: Armando Pan MD, [facility] ([phone]), at 09/17/2024 1:[address] Venogram Brain (Exam End: 09/16/2024 11:21 PM) Result Value WORKSTATION ID [id number] Impression CT head: 1. Interval craniotomy with residual or recurrent hemorrhage right temporal and parietal lobe. 2. New hemorrhage right [...] in the care of this patient. If you are a health care provider and have any questions regarding this report, please contact the number below. For patients who have questions please contact the health ocular care technician that requested your imaging first. Electronically signed by: Armando Pan MD, [facility] ([phone]), at 09/17/2024 1:42 AM XR Chest One View (Exam End: 09/16/2024 11:00 PM) Result Value WORKSTATION ID [id number] Impression Satisfactorily positioned enteric and endotracheal tubes. Left lower lobe atelectasis versus pneumonia. Thank you for letting us participate in the care of this patient. If you are a health care provider and have any questions regarding this report, please contact the number below. For patients who have questions please contact the health ocular care technician that requested your imaging first. Electronically signed by: Pamela Beard MD, [facility] ([phone]), at 09/17/2024 12:09 AM XR Abdomen 1 view (Generic) (Exam End: 09/16/2024 11:00 PM) Result Value WORKSTATION ID [id number] Impression Satisfactorily positioned enteric and endotracheal tubes. Left lower lobe atelectasis versus pneumonia. Thank you for letting us participate in the care of this patient. If you are a health care provider and have any questions regarding this report, please contact the number below. For patients who have questions please contact the health ocular care technician that requested your imaging first. Electronically signed by: Pamela Beard MD, [facility] ([phone]), at 09/17/2024 12:[address] Head wo Contrast (Generic) (Exam End: 09/17/2024 4:51 AM) Result Value WORKSTATION ID [id number] Impression Increased size and density of dominant right parietal hematoma, and of hemorrhage extending medially into the basal ganglia. Foci of thalamocapsular hemorrhage on the right are stable. No evidence of progressive intraventricular hemorrhage or ventricular dilation. No definitive increase in leftward midline shift or herniation. Thank you for letting us participate in the care of this patient. If you are a health care provider and have any questions regarding this report, please contact the number below. For patients who have questions please contact the health ocular care technician that requested your imaging first. Electronically signed by: Elvin Bolden DO, [facility] ([phone]), at 09/17/2024 8:38 AM XR Chest One View (Exam End: 09/17/2024 2:13 PM) Result Value WORKSTATION ID [id number] Impression 1. No focal opacity in lung 2. Pulmonary edema, progressed since last examination. 3. Tip of ET tube is 23 mm superior cuff to jonathan. Consider adjustment. 4. Sidehole and tip of NG tube is below the diaphragm. Thank you for letting us participate in the care of this patient. If you are a health care provider and have any questions regarding this report, please contact the number below. For patients who have questions please contact the health ocular care technician that requested your imaging first. Electronically signed by: Zoey Zabala MD, [facility] ([phone]), at 09/17/2024 2:43 PM XR Chest One View (Exam End: 09/18/2024 8:43 AM) Result Value WORKSTATION ID [id number] Impression Tubes and lines as described. Blunting of the left costophrenic angle suggests tiny layering left effusion with associated left basilar consolidation/atelectasis Thank you for letting us participate in the care of this patient. If you are a health care provider and have any questions regarding this report, please contact the number below. For patients who have questions please contact the health ocular care technician that requested your imaging first. Abdomen 1 view (Generic) (Exam End: 09/18/2024 12:31 PM) Result Value WORKSTATION ID [id number] Impression Dobbhoff tube tip along the greater curve of the stomach. Thank you for letting us participate in the care of this patient. If you are a health care provider and have any questions regarding this report, please contact the number below. For patients who have questions please contact the health ocular care technician that requested your imaging first. Brain wwo Contrast (Generic) (Exam End: 09/19/2024 5:43 PM) Result Value WORKSTATION ID [id number] Impression Unchanged size of large right cerebral hemisphere ICH status post partial evacuation. Numerous small foci of decreased acute infarction both along and separate from the site of hemorrhage. These foci are present in both cerebral hemispheres and have a pattern most consistent with embolic infarction. No evidence of AUTOMOBILE DESIGNER malignancy Thank you for letting us participate in the care of this patient. If you are a health care provider and have any questions regarding this report, please contact the number below. For patients who have questions please contact the health ocular care technician that requested your imaging first. Electronically signed by: Rios Swartz MD, [facility] ([phone]), at 09/20/2024 8:[address] Head wo Contrast (Generic) (Exam End: 09/21/2024 3:50 AM) Result Value WORKSTATION ID [id number] Impression Stable hemorrhage right temporal, parietal, right posterior limb internal capsule and right thalamus. Mild progression of vasogenic edema adjacent to hemorrhage. Similar pattern and extent of local and generalized mass effect with stable subfalcine herniation and uncal herniation. Thank you for letting us participate in the care of this patient. If you are a health care provider and have any questions regarding this report, please contact the number below. For patients who have questions please contact the health ocular care technician that requested your imaging first. Electronically signed by: Armando Pan MD, [facility] ([phone]), at 09/21/2024 4:55 AM XR Abdomen 1 view (Generic) (Exam End: 09/21/2024 2:01 PM) Result Value WORKSTATION ID [id number] Impression Dobbhoff tube and enteric tube sidehole and tip is projecting over the expected location of the stomach. I have personally reviewed the image(s) and the resident's interpretation and agree with the findings, Shraddha Cox MD at 09/21/2024 3:40 PM Thank you for letting us participate in the care of this patient. If you are a health care provider and have any questions regarding this report, please contact the number below. For patients who have questions please contact the health ocular care technician that requested your imaging first. Electronically signed by: Shraddha Cox MD, [facility] ([phone]), at 09/21/2024 3:40 PM XR Chest One View (Exam End: 09/21/2024 2:01 PM) Result Value WORKSTATION ID [id number] Impression ET tube with tip projecting approximately 1.4 cm above the jonathan. Recommend retracting approximately 2 cm and follow-up imaging. New left basilar atelectasis and/or small pleural effusion. Aspiration or pneumonia could also this appearance. I Sacha Shipley MD discussed the results (Impression #1) with Bonnie Vazquez on 09/21/2024 4:42 PM and verified that the results were understood. I have personally reviewed the image(s) and the resident's interpretation and agree with the findings, Octavio Scott MD at 09/21/2024 5:09 PM Thank you for letting us participate in the care of this patient. If you are a health care provider and have any questions regarding this report, please contact the number below. For patients who have questions please contact the health ocular care technician that requested your imaging first. Electronically signed by: Octavio Scott MD, [facility] ([phone]), at 09/21/2024 5:[address] Head wo Contrast (Generic) (Exam End: 09/22/2024 4:02 AM) Result Value WORKSTATION ID [id number] Impression Stable head CT status post removal of subcutaneous drain. No new or enlarging hemorrhage. Stable pattern of mass effect Thank you for letting us participate in the care of this patient. If you are a health care provider and have any questions regarding this report, please contact the number below. For patients who have questions please contact the health ocular care technician that requested your imaging first. Electronically signed by: Armando Pan MD, [facility] ([phone]), at 09/22/2024 4:[address] Angiogram Chest for Pulmonary Embolus w Contrast (Exam End: 09/26/2024 1:37 PM) Result Value WORKSTATION ID [id number] Impression 1. No pulmonary embolism. 2. Pulmonary edema. 3. Bibasilar atelectasis. Superimposed patchy airspace opacity in the left lower lobe may represent atelectasis versus pneumonia. 4. Mild emphysema. 5. Mild cardiomegaly. Left atrial appendage occlusion device in situ. Mild multifocal coronary atherosclerosis. Correlation with echocardiography may be of benefit. 6. Unexpected Findin mm indeterminant left adrenal nodule. Per ACR white paper guidelines, follow-up CT of the Abdomen (Adrenal protocol - without and with intravenous contrast) is recommended in one year. 7. Mild sigmoid diverticulosis coli without secondary signs of acute diverticulitis. 8. Interval development of anasarca, which may be related to hypervolemia, hypoproteinemia, or combination thereof. 9. Endotracheal catheter in situ with tip 4 mm above the jonathan. Recommend retraction. 10. Enteric catheter in situ with tip terminating in the gastric pylorus. 11. Hill catheter in situ. Persistent distention of the urinary bladder. Correlation with catheter functionality is recommended. 12. Rectal catheter in situ. Thank you for letting us participate in the care of this patient. If you are a health care provider and have any questions regarding this report, please contact the number below. For patients who have questions please contact the health ocular care technician that requested your imaging first. Electronically signed by: Marvin Decker DO, [facility] ([phone]), at 09/26/2024 1:[address] Head wo Contrast (Generic) (Exam End: 09/26/2024 1:37 PM) Result Value WORKSTATION ID [id number] Impression 1. Stable right-sided parenchymal and subdural hemorrhages, associated mass effect and midline shift. 2. Stable left intraventricular hemorrhage. 3. No new or enlarging hemorrhages or extra-axial collections. Thank you for letting us participate in the care of this patient. If you are a health care provider and have any questions regarding this report, please contact the number below. For patients who have questions please contact the health ocular care technician that requested your imaging first. Electronically signed by: Smiley Cordova MD, [facility] ([phone]), at 09/26/2024 2:[address] Abdomen & Pelvis w Contrast (Exam End: 09/26/2024 1:37 PM) Result Value WORKSTATION ID [id number] Impression 1. No pulmonary embolism. 2. Pulmonary edema. 3. Bibasilar atelectasis. Superimposed patchy airspace opacity in the left lower lobe may represent atelectasis versus pneumonia. 4. Mild emphysema. 5. Mild cardiomegaly. Left atrial appendage occlusion device in situ. Mild multifocal coronary atherosclerosis. Correlation with echocardiography may be of benefit. 6. Unexpected Findin mm indeterminant left adrenal nodule. Per ACR white paper guidelines, follow-up CT of the Abdomen (Adrenal protocol - without and with intravenous contrast) is recommended in one year. 7. Mild sigmoid diverticulosis coli without secondary signs of acute diverticulitis. 8. Interval development of anasarca, which may be related to hypervolemia, hypoproteinemia, or combination thereof. 9. Endotracheal catheter in situ with tip 4 mm above the jonathan. Recommend retraction. 10. Enteric catheter in situ with tip terminating in the gastric pylorus. 11. Hill catheter in situ. Persistent distention of the urinary bladder. Correlation with catheter functionality is recommended. 12. Rectal catheter in situ. Thank you for letting us participate in the care of this patient. If you are a health care provider and have any questions regarding this report, please contact the number below. For patients who have questions please contact the health ocular care technician that requested your imaging first. Electronically signed by: Marvin Decker DO, [facility] ([phone]), at 09/26/2024 1:54 PM XR Chest One View (Exam End: 09/28/2024 4:06 AM) Result Value WORKSTATION ID [id number] Impression 1. Limited examination. 2. Interval removal of the endotracheal catheter. 3. Stable position of other medical hardware. 4. Decreased but persistent patchy left retrocardiac airspace opacity, may be resolving atelectasis or pneumonia. Thank you for letting us participate in the care of this patient. If you are a health care provider and have any questions regarding this report, please contact the number below. For patients who have questions please contact the health ocular care technician that requested your imaging first. Electronically signed by: Marvin Decker DO, [facility] ([phone]), at 09/28/2024 4:12 AM XR Chest One View (Exam End: 09/28/2024 7:58 PM) Result Value WORKSTATION ID [id number] Impression 1. Slightly increased opacity in the left lower lung which may be due to atelectasis, aspiration or pneumonia. 2. Small bilateral pleural effusions. Thank you for letting us participate in the care of this patient. If you are a health care provider and have any questions regarding this report, please contact the number below. For patients who have questions please contact the health ocular care technician that requested your imaging first. Electronically signed by: Sammy Story MD, [facility] ([phone]), at 09/28/2024 8:09 PM Assessment: 74 y.o. female with PMHx notable for Afib (taking ASA, previously on apixaban-stopped taking after IPH in April 2024), CHRISTOPHER, HLD, BMI of 36, prior IPH 04/2024 who presented to hospital 09/16/24 for placement of Watchman with cardiology. She developed headaches and nausea post op and CT scan noted large R [id number] IPH. Now s/p R craniotomy for IPH evacuation. Repeated CTH wo contrast post-op overnight into 09/17 showing increased hemorrhage on R but exam remains stable. Will defer further neurosurgical intervention at this time and continue to closely monitor exam. 09/18 AM noted L eye down, possible out. MRI Brain wwo on 09/19 showing small scattered infarcts c/w embolic infarcts not that would explain possible palsy. Plan: -No acute neurosurgical intervention -Neurostable for q4h neurochecks -Rec airway maintenance with RT and nursing (staggered q4h suction for secretions) -Respiratory treatment regimen per medicine/stepdown -MRI Brain wwo done -SBP 90-160 -DVT ppx with SCDs, SQH -CUTTER AND EDGE TRIMMER for diet advancement -Na goal eunatremia -Rest of care per primary For questions please call NSGY pager [phone] oRb Guzman MD Clinical Documentation Improvement: Active Hospital Problems Diagnosis Presence of Watchman left atrial appendage closure device S/P craniotomy Resolved Hospital Problems No resolved problems to display. * Kymberly Baptiste, PT - 09/28/2024 1:44 PM EST Physical Therapy Note Treatment Number PT: 3 Patient profile: Lucero Bruno ( ) is a 74 y.o. 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 Interval History: cdiff(-), S&W precautions d/c'ed Social History: per previous hospitalization 04/2024 Patient reports she lives alone with her two cats in a 2 level home with a basement. Patient reports her needs are met on the main level, including laundry. Her bathroom includes a tub shower with grab bars. Residence has 2 small [facility]. At her baseline, patient is independent in all aspects. 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 Patient reports she enjoys her 1/2 acre of flower beds. Falls: None Precautions/Special Considerations: at risk to fall, SBP<140, MAP>65, RUE restraint Lines: PIV, tele, central line, hill catheter, DHT, flexiseal, nasal cannula Activity Orders: AAT Diet: NPO Mobility and Positioning Recommendations: Pt to utilize mech lift for transfers with nursing. Please encourage up to chair for meal times as able. Subjective: communicates via gestures & able to write today Objective: Patient seen for physical therapy and demonstrated the following: Pain: Endorses pain in L shoulder, did not rate Vital Signs: At Rest SpO2 (3L NC) 96% BP 137/65 HR 80bpm Cognition/Vision: alert, follows commands in RUE/RLE, answers yes/no with gestures, writing today. Oriented to self & place, reoriented to time. Bed Mobility: Supine to Sit: max assist x2 with HOB elevated Sit to Supine: max assist x2 Transfers: Sit to Stand: NA Stand to Sit: NA Bed to Chair: NA; will require mech lift Gait: NA Stairs: NA Balance: Sitting Static: poor, requires mod-max assist for seated balance, able to maintain for brief periods with RUE support on bed rail, impaired righting reactions, poor head/neck control. Tolerated increased time at EOB today Sitting Dynamic: poor Standing Static: NA Standing Dynamic / Gait: NA Education: Pt educated on bed mobility, transfers, seated balance, role of therapy, and importance of mobility. She will require ongoing reinforcement. Pt left in bed/chair position, with all needs met, with call ruiz in reach, and with bed alarm active following visit. Assessment: Lucero Bruno was seen today for physical therapy treatment session for continuation of POC. Pt was more alert and oriented today, and was able to write minimal words to communicate with PT/OT. She tolerated increased time sitting at EOB, and participated in balance, strength, and cognitive activities. Pt demo's significant impairments in endurance, strength, balance, and posture,and will benefit from d/c to SNF once medically ready. Pt will benefit from ongoing therapeutic interventions to achieve therapy goals. Discharge Recommendations: Based on the current findings, Anticipated Discharge Disposition (PT): jail facility when medically ready for hospital discharge. Discharge recommendation is based on the patient's current physical impairments, prior functional status, potential to return to prior level of function, patient motivation, reported home support, potential for functional gains, current level of endurance, reported home environment and anticipated trajectory of progress and may change based on patient progress during this hospitalization. Consult Recommendations: No other consults recommended at this time. Equipment needs: Anticipated Equipment Needs at Discharge (PT): to be determined Goals: To be achieved by 10/13/24: ONGOING Pt. to demonstrate knowledge of safety limitations and precautions and will appropriately request assistance for functional activities and to mobilize. Pt. to perform bed mobility with mod A. Pt will maintain seated balance at EOB with min A x5 mins. Pt. Will tolerate mech lift OOB to recliner chair. Family or caregiver to demonstrate understanding of therapeutic interventions to support the care of the patient. Pt will tolerate progression towards upright with stable vital signs. Plan: Therapy Frequency (PT): 2-3 times/wk for therapy interventions as outlined in initial evaluation. Patient agrees with plan as stated. Time IN / OUT: 7971-5067 Total Minutes, Physical Therapy: 34 Billing Code: [id number] Kymberly Baptiste PT, DPT, NCS Pager: [phone] Physical Therapy Inpatient Rehabilitation Department * Angel Torres PA - 09/28/2024 1:36 PM EST Images from the original note were not included. 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 Clinical Course/NCCU Course: Post watchman procedure while pt was in PACU she developed severe 10/10 CABA, nausea, and emesis. Shewas heparinized during her procedure and received 20mg of protamine at the time of her CABA, found tohave a large R IPH w/ mass effect and midline shift in CT. At that time she was reportedly alert and following commands, flaccid on the left with a L blown pupil. NSGY was consulted at this time. Shereceived 90g of mannitol and 23.4% then was intubated for airway protection while in CT. She was taken directly to the OR, given 1g of Keppra and 1u of platelets. # R ICH with hematoma evacuation Aubree had her hematoma evacuation on 09/16. Post craniotomy patient was following commands on her RUE/ RLE, answering questions yes/ no via finger commands, had a CN III deficit LEFT eye, and LUE/ LLE briskly withdrew to pain. # Hypoxic respiratory failure after extubation 09/21: Extubation was considered on 09/19 but deferred to fluid overload and protuberant tongue for which 48 hours of steroids were administered. Trial of extubation performed on 09/21 which resulted in rather flagrant inability to protect airway necessitating reintubation. Intubation proved challenging and required multiple attempts with multiple providers with ultimately anesthesia obtaining a secure airway with a 7.5 ET tube using video laryngoscopy. The oropharynx was notably edematous with pooling secretions but ultimately a grade 2 view was obtained by anesthesia. Steroids were started for airway edema. Notably, cough was weak after extubation and bulbar function otherwise was unable to fully be assessed before urgent re-intubation. On 09/26 Aubree was extubated to 4 LPM nasal canula. She washypophonic and required moderate degrees of oral suctioning but improved thereafter. [employer] evaluations ongoing, but given degree of dysphagia, anticipate PEG conversation. #Marked leukocytosis #Possible aspiration PNA Patient had progressive leukocytosis reaching 39K on 09/27. Infectious disease consulted. Zosyn started empirically. Infection work-up so far unrevealing except for tracheal aspirate with streptococcus anginosus. WBC started to trend down on 09/28. Patient subsequently transferred to vascular neurology service 09/28. Active Medications: tube feeding diet 50 mL/hr at 09/28/24 1200 amLODIPine 5 mg Per NG tube Daily piperacillin-tazobactam 3.375 g Intravenous Q8H insulin lispro 0-3 Units Subcutaneous Q4H CARLY ipratropium-albuteroL 3 mL Nebulization Q4H heparin (porcine) 5,000 Units Subcutaneous Q8H CARLY insulin lispro 2-12 Units Subcutaneous Q4H CARLY dilTIAZem 90 mg Per NG tube Q6H [facility] multivitamin with minerals 1 tablet Per NG tube Daily iohexoL, glucose 40% oral geL OR dextrose OR glucagon, iohexoL, docusate sodium AND sennosides, polyethylene glycoL (MIRALAX) oral powder, labetaloL, acetaminophen, sodium chloride, potassium chloride ER OR potassium chloride ER, bisacodyL, bacitracin zinc-polymyxin B, gelatin compressed, thrombin (Bovine) Vital Sign Ranges: Last value Range last 24 hrs Temperature Temp: 36.7 ??C (98.1 ??F) Temp: [36.7 ??C (98.1 ??F)-37.3 ??C (99.1 ??F)] Heart Rate Heart Rate: 89 Heart Rate: [72-118] Blood Pressure BP: 114/56 BP: (98-141)/(29-81) Respiratory Rate Resp: 24 Resp: [20-26] SpO2 SpO2: 93 % SpO2: [92 %-100 %] Art BP BP (Arterial Line): 134/56 BP (Arterial Line): -- Intake/Output: I/O 09/25 0701 09/26 0709/26 0701 09/27 0700 09/27 0701 09/28 0700 09/28 0701 09/29 0700 P.O. 0 0 0 0 I.V. (mL/kg/hr) 1360.8 (0.6) 529.3 (0.2) 150 (0.1) 0 (0) Other 0 0 0 NG/GT 1225 2140 541.7 280 IV Piggyback 150 200 100 50 Irrigation 110 90 180 30 Total Intake(mL/kg) 2845.8 (31.9) 2959.3 (33.2) 971.7 (11.4) 360 (4.2) Urine (mL/kg/hr) 3500 (1.6) 4385 (2) 1405 (0.7) 300 (0.5) Emesis/NG output 0 0 0 0 Other 0 0 0 Stool 200 1025 50 0 Blood 0 Urine/Stool Mixed 0 Total Output(mL/kg) 3700 (41.5) 5410 (60.7) 1455 (17) 300 (3.5) Net -854.2 -2450.7 -483.3 +60 Unmeasured Urine Occurrence 0 x 0 x 0 x 0 x Stool Occurrence 5 x 3 x 0 x 0 x Emesis Occurrence 0 x 0 x 0 x 0 x Last BM: Stool Occurrence Min: 0 Max: 0 Current Diet: NPO diet (Give Meds) Lines/Drains/Airways: Percutaneous Central Line 09/17/24 1405 Triple Lumen subclavian vein, right (Active) Indication/Daily Review of Necessity Medications known to cause phlebitis (vasopressors, concentrated electrolytes, TPN, chemotherapy) 09/18/24599 Site Preparation/Maintenance dressing: dry and intact 09/18/24599 Dressing change due 09/21/24 09/18/24 0200 Securement sutures, secured with 09/18/24599 Distal Patency/Maintenance flushed without difficulty 09/18/24599 Medial Patency/Maintenance flushed without difficulty 09/18/24599 Proximal Patency/Maintenance flushed without difficulty 09/18/24599 Phlebitis 0-->no symptoms 09/18/24 0400 Infiltration 0-->no symptoms 09/18/24599 Site Signs/Symptoms no redness;no swelling;no warmth 09/18/24599 PIV 09/16/24 1305 1 in length;18 gauge median cubital vein (antecubital fossa), right (Active) Indication/Daily Review of Necessity medication therapy intermittent 09/18/24599 Site Preparation/Maintenance dressing: dry and intact 09/18/24599 Securement catheter stabilization device, secured with 09/18/24599 Patency/Maintenance flushed without difficulty 09/18/24599 Phlebitis 0-->no symptoms 09/18/24599 Infiltration 0-->no symptoms 09/18/24599 Site Signs/Symptoms no swelling;no warmth;no redness 09/18/24599 PIV 09/16/24 2216 20 gauge median cubital vein (antecubital fossa), left (Active) Indication/Daily Review of Necessity medication therapy intermittent 09/18/24599 Site Preparation/Maintenance dressing: dry and intact 09/18/24599 Securement catheter stabilization device, secured with 09/18/24599 Patency/Maintenance flushed without difficulty 09/18/24599 Phlebitis 0-->no symptoms 09/18/24599 Infiltration 0-->no symptoms 09/18/24599 Site Signs/Symptoms no swelling;no warmth;no redness 09/18/24599 Drain/Device Site 09/16/24 Right parietal region collapsible closed device (Active) Drainage Characteristics/Odor serosanguineous 09/18/24 0600 Drainage Characteristics/Odor (in device) sanguineous 09/17/24 1749 Irrigation/Flush (mL) 0 (mL) 09/18/24 1248 General Output (mL) 30 09/18/24 1248 Net Drain Output (mL) 30 (mL) 09/18/24 1248 Urethral Catheter 09/16/24 latex 14 5 10 (Active) Indication/Necessity Q1-2hr UOP in ICU patient without alternative 09/18/24 020 Securement secured to upper leg with adhesive device 09/18/24199 Maintenance Closed system maintained;Urine flow is unobstructed;Collection bag maintained below thebladder;Catheter secured to leg;Collection bag emptied when half full or at least every 4 hours using a separate container for this patient, drainage spigot not allowed to touch container;Hand hygiene performed before and after touching catheter and collection system 09/18/24 020 Foreskin not applicable 09/17/24 1400 Tolerance no signs/symptoms of discomfort 09/17/24 1749 Urine Characteristics yellow;sediment 09/18/24 1400 Irrigation/Flush (mL) 0 (mL) 09/18/24 1400 Urine Output (mL) 175 09/18/24 1400 Net Catheter Output (mL) 175 (mL) 09/18/24 1400 Naso/Oral Tube 09/16/24 2300 orogastric center mouth (Active) Placement Check Methods x-ray confirmation;distal length tube measured 09/17/24 0830 Securement taped to ETT 09/18/24199 Insertion Site Appearance no redness;no warmth;no tenderness;no skin breakdown;no drainage 200 Tolerance no adverse signs/symptoms 09/18/24 0200 Drainage Color yellow 09/17/24 0336 Flush/Irrigation flushed with;water 09/17/241999 Irrigation/Flush (mL) 70 (mL) 09/17/24 2000 Tube Intake (mL) 33 09/17/24 2200 General Output (mL) 25 09/17/24 0557 Net Naso/Oral Volume (mL) 33 (mL) 09/17/24 2200 Naso/Oral Tube 09/18/24 1229 small bore;nonweighted right nostril (Active) ETT Airway 09/16/24 (Active) Airway Size Verification 8 mm 09/18/24840 Site Changed to: center of mouth 09/18/24840 Appearance clean;dry 09/18/24840 Tube Securement endotracheal (ET) tube nava 09/18/24840 Tube Reference Point teeth 09/18/24840 Airway Tube Secured At (cm) 22 09/18/24840 Cuff Pressure (cm H2O/mLH2O) 30 09/18/24840 Tube Securement Date 09/16/24 09/17/24 1458 Bite Block none 09/18/24840 Manual Resuscitator at bedside Yes 09/18/24840 Arterial Line 09/16/24 1755 radial artery, right 20 gauge (Active) Daily Review Of Necessity completed 09/17/242199 Dressing dressing dry and intact 09/18/24599 Arterial Catheter Securement catheter securement device utilized 09/18/24599 Lumen Patency/Care flushed without difficulty 09/18/24599 Waveform normal 09/18/24599 Phlebitis 0-->no symptoms 09/18/24599 Infiltration 0-->no symptoms 09/18/24599 Site Signs/Symptoms no redness;no swelling;no warmth 09/18/24599 Pressure Catheter Interventions line leveled/zeroed;system flushed 09/17/241999 Incision 09/16/24 Right parietal region other (see comments) (Active) Incision ex 09/17/241999 Dressing Appearance intact;dry 09/17/241999 Appearance no drainage;no redness;no swelling;no warmth 09/17/241999 Dressing other (see comments) 09/16/242046 Output (mL) 0 09/17/24 09 Labs: Recent Results (from the past 24 hour(s)) POC, GLUCOSE Result Value Ref Range Glucometer, POC 123 65 - 199 mg/dL Potassium Result Value Ref Range Potassium 4.0 3.5 - 5.0 mMol/L POC, GLUCOSE Result Value Ref Range Glucometer, POC 144 65 - 199 mg/dL POC, GLUCOSE Result Value Ref Range Glucometer, POC 125 65 - 199 mg/dL Basic Metabolic Panel Result Value Ref Range Glucose 161 65 - 199 mg/dL Blood Urea Nitrogen 21 (H) 8 - 18 mg/dL Creatinine 0.49 (L) 0.70 - 1.20 mg/dL Sodium 138 135 - 145 mMol/L Potassium 4.0 3.5 - 5.0 mMol/L Chloride 106 98 - 107 mMol/L Carbon Dioxide 22 22 - 31 mMol/L Anion Gap 10 5 - 15 mMol/L Calcium 8.3 (L) 8.5 - 10.5 mg/dL Est Glomerular Filtration Rate - Female 100 mL/min/1.73 m?? Magnesium Result Value Ref Range Magnesium 0.82 0.69 - 1.07 mMol/L Phosphorus Result Value Ref Range Phosphorus 2.7 2.5 - 4.5 mg/dL CBC (with Diff) Result Value Ref Range White Blood Cell 35.37 (CRIT) 4.00 - 9.50 x10(3)/mcL Red Blood Cell 3.70 (L) 4.00 - 5.21 x10(6)/mcL Hemoglobin 11.0 (L) 11.7 - 15.5 g/dL Hematocrit 34.0 (L) 35.7 - 45.8 % Mean Cell Volume 91.9 82.6 - 94.4 fL Mean Cell Hemoglobin 29.7 27.1 - 32.0 pg Mean Cell Hemoglobin Concentration 32.4 31.7 - 35.0 g/dL Platelet 443 (H) 145 - 357 x10(3)/mcL Mean Platelet Volume 10.2 7.6 - 12.9 fL RDW Standard Deviation 43.8 37.0 - 46.0 fL RDW coefficient of variation 13.7 11.5 - 14.1 % NRBC% auto 0.0 % NRBC Absolute <0.01 <0.01 x10(3)/mcL Neutrophil % 87.0 % Neutrophil Absolute (ANC) - Automated 30.79 (H) 1.70 - 6.10 x10(3)/mcL Lymph % 4.2 % Lymph Absolute 1.50 0.90 - 3.20 x10(3)/mcL Monocyte % 4.5 % Monocyte Absolute 1.60 (H) 0.30 - 0.90 x10(3)/mcL Eos % 0.5 % Eos Absolute 0.16 0.00 - 0.40 x10(3)/mcL Basophil % 0.3 % Baso Absolute 0.09 0.00 - 0.10 x10(3)/mcL Immature Gran % 3.5 % Immature Gran Absolute 1.23 (H) 0.00 - 0.04 x10(3)/mcL Troponin-T, High Sensitivity Result Value Ref Range Troponin-T, High Sensitivity Initial 15 (H) <=14 ng/L Scan, Peripheral Blood Result Value Ref Range RBC Morphology Abnormal Platelet Estimate Increased (A) Normal Polychromasia Present WBC MORPHOLOGY See Comment (A) (none) POC, GLUCOSE Result Value Ref Range Glucometer, POC 174 65 - 199 mg/dL Troponin-T, High Sensitivity 1 Hour Result Value Ref Range Troponin-T, High Sensitivity 16 (H) <=14 ng/L Troponin-T, HS 1 hr delta 1 ng/L Troponin-T, High Sensitivity 3 Hour Result Value Ref Range Troponin-T, High Sensitivity 16 (H) <=14 ng/L Troponin-T, HS 3 hr delta POC, GLUCOSE Result Value Ref Range Glucometer, POC 161 65 - 199 mg/dL POC, GLUCOSE Result Value Ref Range Glucometer, POC 163 65 - 199 mg/dL Imaging: CTH 09/16 Interval expansion of now large right-sided temporal occipital intraparenchymal hemorrhage with significant mass effect resulting in 1 cm leftward midline shift. EKG: Results for orders placed or performed during the hospital encounter of 09/16/24 EKG 12 Lead Result Value Ref Range Ventricular rate 75 BPM Atrial Rate 75 BPM P-R Interval 164 ms QRS Duration 72 ms Q-T Interval 400 ms QTC Calculated (Bezet) 446 ms Calculated P [place] 36 degrees Calculated R [place] -17 degrees Calculated T [place] 28 degrees INTERPRETATION Normal sinus rhythm Normal ECG When compared with ECG of 16-SEP-2024 13:08, No significant change was found Confirmed by MD Bahman, Octavio Mosquera ([id number]) on 09/19/2024 9:11:06 AM TTE 09/16: Summary Normal left ventriclar wall thickness, chamber size and systolic function. The left ventricular ejection fraction is 75% by Ruth's biplane. There are no segmental wall motion abnormalities. No thrombus visualized with Definity. Normal right ventricular size and systolic function. No hemodynamically significant valvular abnormalities. Compared to 05/06/2024: Findings are stable Physical Exam: Physical Exam Vitals and nursing note reviewed. Constitutional: Appearance: Normal appearance. She is well-developed and overweight. Interventions: Nasal cannula in place. HENT: Head: Comments: Craniotomy incision C/D/I Cardiovascular: Rate and Rhythm: Normal rate and regular rhythm. Heart sounds: Normal heart sounds. Pulmonary: Effort: Pulmonary effort is normal. Breath sounds: Normal breath sounds. Abdominal: General: Abdomen is protuberant. Bowel sounds are decreased. Palpations: Abdomen is soft. Musculoskeletal: Cervical back: Neck supple. Skin: General: Skin is warm and dry. Neurological: Mental Status: She is alert. GCS: GCS eye subscore is 4. GCS verbal subscore is 1. GCS motor subscore is 6. Comments: Non-verbal Alert, following commands right side, plegic on left Right gaze deviation with left jules-neglect Left eye down and in Psychiatric: Attention and Perception: Attention normal. Speech: She is noncommunicative. Behavior: Behavior is cooperative. 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 Now is s/p craniotomy and hematoma evacuation. 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 # Pulm - > intubated for airway protection-extubated 09/26 >flagrant failure s/p extubation 09/21 (hypoxia, weak cough, secretions) - goal O2 sats > 92% # GI - > 26 mm adrenal nodule found on CT abd - outpatient f/u [address] abd wwo-per Rads - NPO give meds - DHT in place for enteral nutrition -ongoing [employer] evaluation: currently NPO -anticipate PEG placement - bowel reg # FEN/ - - daily BMP, Mg, PO4 - Trial hill removal 09/28 -bladder scan and PRN straight cath # Heme - - daily CBC - SQH/SCD's for DVT PPx # Endo - - goal glucose 120-180 # ID - > Leukocytosis without bandemia, DRESS syndrome? - ID consult, recommends to keep Zosyn for now -TA (09/23): +>100K Strep anginosus -BCx2: NGTD - for temp > 38.4 C --> UA, CXR, blood cx, sputum cx - Sanderson cultured 09/18 for tmax 38.5 LDA: PIVs, DHT Code Status: Attempt Cardiopulmonary Resuscitation - Inpatient Dispo: [facility] ADRIANA Pace 09/28/2024 [facility] pager #[phone] * Dheeraj Moreira - 09/28/2024 1:19 PM EST Reserve Officer Encounter Note Patient Name: Lucero Bruno : [id number] MR#: [id number] Admit Date: 09/16/2024 10:06 AM Hospital Day 12 days Narrative:Visited to introduce and assess acceptance of Reserve Officer services. Assessment:Family coping positively with stresses of illness/hospitalization at this time. I met with patient two friends in hallway and patient has family care and support. Family is taking one day at time and shared that she is getting better slowly. Intervention and Outcome:Provided emotional, spiritual support and listening presence. Reserve Officer services accepted. Conversation to build trusting relationship. Provided pastoral presence. Provided spiritual guidance. Follow-up: yes Time in Direct Care:04 Mins Dheeraj Moreira 09/28/2024 * Areli Hathaway, [employer] - 09/28/2024 12:58 PM EST Speech Therapy Note Patient Profile: Lucero Bruno is a 74 y.o. female with PMHx of A-fib, CHRISTOPHER, HLD, and prior IPH (04/2024) who presented to [facility] on 09/16/2024 for placement of Watchman with cardiology. She developed headaches and nausea post-operatively and was found to have a large R hqpioent-nlefdjq-yvhxfssys IPH, now s/p craniotomy. Patient was intubated from 09/16-09/21 with extubation complicated by stridor requiring re-intubation from 09/21-09/26 (11 days total). [employer] has been following since 09/27 for communication and dysphagia management. Interval History: ID consulted due to concern for infection of unknown etiology Recent Imaging: XR Chest (09/28/2024) IMPRESSION 1. Limited examination. 2. Interval removal of the endotracheal catheter. 3. Stable position of other medical hardware. 4. Decreased but persistent patchy left retrocardiac airspace opacity, may be resolving atelectasisor pneumonia. Subjective: Patient was awake and engaged with care. Objective: Patient seen for dysphagia management and demonstrated the following: Pain: Denies Respiratory Status: Nasal canula 3 L/min, satting 99%; RN later decreased to 2L with patient satting 93% Current Diet: NPO diet (Give Meds) Feeding / Oral Care Status: Patient requires cues and/or assistance due to significant motor limitations; able to accept and bring a swab or spoon to her mouth with verbal cues for direction (overshoots to L) Cognitive-Linguistic Status: Awake and alert Fully oriented when assessed using Y/N questions; also wrote DH when asked for location Responding to Y/N questions promptly and appropriately using head nods and hand gestures Writing is reasonably intelligible at the word and phrase levels (e.g., full name, I can't drive anymore); able to independently request clipboard using hand gestures Command Following: Follows single step commands within motor constraints Positioning: In bed-chair position Oral Motor Examination: WFL Impaired Comments STRUCTURES Facial Symmetry X Left facial droop Lips X Reduced retraction bilaterally, more pronounced on L Tongue X Deviates L on minimal protrusion; limited range of motion with poor agility and coordination Jaw X Reduced jaw opening Palate/Velum X Dentition X Missing right upper teeth and multiple others; visible decay; completed oral care usingsuction toothbrush prior to completing PO trials OTHER Phonation X Minimal phonation attempts are hypophonic, strained, and breathy; phonates to command Intelligibility X Unable to verbalize Volitional Cough X Reduced Sensation X Patient reports intact; however, strongly suspect L sensory impairment vs. inattention Secretion Management X Pooling in buccal cavities, likely due to limited tongue movement Bolus Presentation(s): Tested Comments Thin liquids X Water via swab [place] thick liquids Honey thick liquids Pureed solids Dysphagia soft Mechanical soft Regular solids Pills X Ice chips, Fijian ice Other Oral Preparatory Phase Mastication: N/A Oral transit: Poor lingual movement and control with minimal attempts at A-P transit Bolus cohesion: Suspect reduced due to poor lingual movement and control Oral containment: Poor labial seal with intermittent left-sided anterior loss Oral stasis: None after a prolonged period of oral holding followed by swallow Pharyngeal Phase Swallow initiation: Present after a prolonged period of oral holding Vocal quality change: None Cough / throat clear: Throat clearing with 25% of Fijian ice trials, none with single ice chips Pt complaint of food getting stuck: None with limited volumes and consistencies Fatigue across trials: None with slow rate Respiratory rate and respiratory swallow pattern: Unlabored and coordinated Esophageal Observations Unable to comment meaningfully with limited trials Compensatory Techniques: 1:1 feeding assistance, extended time, verbal cues to attempt oral manipulation Education: Patient educated on results and recommendations, and verbalized understanding. Patient status and swallow recommendations were discussed with nursing, respiratory therapy, and the primary team. Assessment: Aubree was seen today for communication and dysphagia management. Cognitive-Communication Aubree was awake, alert, and fully oriented. She consistently responded to Y/N questions using a combination of head nods and hand gestures, and responded to open-ended questions through writing (wordsand short phrases). Aubree attempted to phonate to command and was hypophonic, strained, and breathy.She was unable to verbalize spontaneously or to command. Aubree continues to present with left inattention and a right gaze preference and was unable to cross midline despite cues. She had L homonymoushemianopsia prior to this admission. Swallowing Aubree continues to present with significant oral motor impairment. Today, she self-fed PO trials of ice chips, water via swabs, and [place]ij[place] ice. She benefited from verbal cues for physical orientationdue to preexisting visual field cuts and/or inattention. Aubree's swallow was characterized by minimal lingual movements with eventual swallow initiation following a prolonged period of oral holding. She presented with inconsistent signs of aspiration (coughing) with [place] ice and none with small amounts of water or single ice chips. Aubree will benefit from ongoing swallow stimulation. Please provide single ice chips when she is alert and accepting. We will continue to follow for serial reassessment, likely including an instrumental evaluation once she can more reliably tolerate PO intake. Diagnosis: Oral and suspected pharyngeal dysphagia 2/2 IPH, dysphonia 2/2 IPH vs. mutliple prolonged and reportedly traumatic intubations Recommendations: Diet: NPO, May offer individual ice chips for pleasure / practice Ice Chip Protocol This protocol allows patients who are NPO (nothing by mouth) to have ice chips under certain conditions in order to promote oral hydration and prevent atrophy of the swallowing muscles. It is based on evidence indicating that aspiration of small amounts of water is a benign event - unlike juice, soda or coffee, water has a neutral pH level. Therefore, it is well tolerated by the lungs and is quickly absorbed into the bloodstream. Guidelines: Ensure patient is alert, awake, and stable from a respiratory standpoint. Ensure patient is sitting upright. Provide frequent and thorough oral care. Oral care must be provided before giving ice chips Patient may have ice chips following oral care: Provide small single ice chips, one at a time. Allow adequate time after each ice chip for patient to cough or clear their throat if needed. Provide no more than a few (~1-5) ice chips in one sitting. Stop giving ice chips if patient fatigues or becomes uncomfortable. PO Medications: IV or other alternative means only Aspiration Precautions: Sit upright with all PO intake Single ice chips only Patient will require feeding assistance Excellent oral care to reduce risk of aspiration pneumonia Speech Therapy Goals: Pt will tolerate the least restrictive diet without further respiratory decompensation. NEW Pt / caregiver will be independent with aspiration precautions, diet modifications, and safe swallowing strategies. NEW Plan: Therapy Frequency ([employer] Eval): 3-5 times/wk Patient is in agreement with the plan of care. Total Minutes (Speech Language Pathology): 40 Areli Hathaway MS, [facility] [facility] Speech-Language Pathologist Inpatient Rehabilitation Pager # [phone] * Diana Lucas, OT - 09/28/2024 11:50 AM EST Occupational Therapy Treatment Note Treatment Number OT: 2 Patient Dx:Lucero Bruno is a 74 y.o. female admitted on 09/16/2024. 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 Presents to OT for evaluation of functional activity. Social History: per chart review Home Setup: Pt lives in a multi story home with all needs met on one level. Pt has a tub shower with grab bars. Social support: Pt lives alone. Pt has a significant other and a son in the area. Pt lives with her two cats Jose A and Erick DME: Cane Tub grab bar Baseline ADL/Mobility: Pt was independent at baseline with use of cane. 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 Pt has a 1/2 acre of flower beds. Precautions/Special Considerations: Falls, supplemental O2 via NC, NPO, NGT, hill, AAT, SBP 90-160, full code Patient Lines/Drains/Airways Status Active Tubes/Lines/Drains Name Placement date Placement time Site Days Percutaneous Central Line 09/17/24 1405 Triple Lumen subclavian vein, right 09/17/24 1405 -- 11 Rectal Tube 09/26/24 0245 fecal management system 09/26/24 0245 -- 2 Urethral Catheter 09/16/24 latex 14 5 10 09/16/24 -- -- 12 Naso/Oral Tube 09/18/24 1229 small bore;nonweighted right nostril 09/18/24 1229 right nostril 10 Activity Orders: Activity Orders (From admission to next 72h) Start Ordered Unscheduled Activity as tolerated PRN 09/16/24 2205 Unscheduled Up with assistance PRN 09/16/24 2205 Interval History: 09/26 extubated S: Pt received in bed without visitors present. Pt agreeable to OT treatment session this date. Pt A&Ox2, on RA, and VSS. O: Patient seen for skilled OT treatment, and demonstrated the following: Self-care/Functional Mobility: Supine>sit max A x2 Sit EOB mod-max a ~20 mins Washed face: mod A for L side, cuing to attend to L side Wrote on supported clip board using RUE, L neglect on page noted. Sit>supine: max A x2 Cognition: Behavior / Mood: alert, cooperative, confused, and impaired task initiation Alert and oriented to: person and place Follows commands: 1 step and 2 step Attention: difficulty attending to task/directions Safety awareness: decreased insight into deficits Vision: Unable to track R gaze preference L inattention Communication Thumbs up vs down Nod yes/no Wrote using RUE for pen, told about her cats, family, and Endurance/Vitals: Pt on 3L O2, reports no dizziness, lightheadedness, and VSS SpO2 HR BP Pre-activity 96% 80bpm 137/65(83) After Activity 98% 89bpm 115/65(80) Strength/ROM: RUE elbow/hand full ROM, RUE shoulder flexion PROM LUE full PROM, no AROM, slight subluxed shoulder, edema in hand, positioned on pillow Pain: endorsed pain in LUE shoulder Education: Pt education ongoing regarding: Role of Occupational Therapy, Reorientation, Range of motion , Exercises , Activity tolerance, Positioning, Safety during ADL's and functional mobility , Alternating rest/activity , Increased participation in self-care and ADL's within hospital environment, Use of AE, DME recommendations , L inattention , and Goals Staff Communication: Handoff given to RN including pt's location, pain, and pertinent information at cessation of session. ASSESSMENT: Pt seen for OT treatment session this date to progress ADL tasks. Pt sat EOB with mod-max A. Pt used RUE to write for increased communication. Pt required cuing to attend to L side duringfunctional activities. Pt will benefit from ongoing therapeutic interventions to achieve pt's and therapy goals Anticipated Discharge Disposition (OT): jail facility Equipment Recommendations: Equipment Needs Upon Discharge (OT): to be determined Daily schedule / Staff Recommendations: EPM Level 2: Bed-Chair position, Mechanically lift to chair, Participate in self care Utilize upright chair position using bed features or transfer to recliner chair as appropriate withlift Frequent orientation verbally & visually with calendars/clocks/whiteboard Facilitate a normal sleep-wake cycle (minimize nighttime distractions when possible, lights on/shades up during the day) Provide brief, clear instructions and directions from one source at a time Reduce extraneous stimulation Encourage use of coping & calming strategies Occupational Therapy Goals: To be achieved by 10/06/24. Pt will be consistently A&Ox4 and CAM (-) Pt will complete UBD with min A using compensatory strategies/LRAD prn. Pt will complete UB bathing with min A using compensatory strategies/LRAD prn. Pt will complete 2-3 grooming tasks at in supported sitting with set up A. Pt will complete BUE HEP to improve functional use of ADLs Therapy Frequency (OT): 2-3 times/wk Total Minutes, Occupational Therapy: 34 [phone]) Diana Lucas, OTR/L They/Them Occupational Therapy Rehabilitation Department Pager # [phone] Areli Boyle [employer] - 09/28/2024 11:00 AM EST Speech Pathology Contact Note Chart reviewed. Attempted to see patient for dysphagia management; however, shortly into our session she became tachycardic and RN requested we defer. We will follow up on next treatment date as schedule allows. Please secure chat with questions, thanks! Areli Hathaway, MS, CCC-[employer] Speech-Language Pathologist Inpatient Rehabilitation Pager # [phone] * Librado Patel MD - 09/28/2024 9:59 AM EST NEUROCRITICAL CARE PROGRESS NOTE Date of Admission: 09/16/2024 10:06 AM LOS: 12 ICU LOS: 11d 12h 24 Hour Events: Afebrile 3L NC requirement Patient performing own suctioning Active Medications: tube feeding diet 40 mL/hr at 09/28/24 0639 amLODIPine 5 mg Per NG tube Daily piperacillin-tazobactam 3.375 g Intravenous Q8H insulin lispro 0-3 Units Subcutaneous Q4H CARLY ipratropium-albuteroL 3 mL Nebulization Q4H heparin (porcine) 5,000 Units Subcutaneous Q8H CARLY insulin lispro 2-12 Units Subcutaneous Q4H CARLY dilTIAZem 90 mg Per NG tube Q6H CARLY multivitamin with minerals 1 tablet Per NG tube Daily glucose 40% oral geL OR dextrose OR glucagon, docusate sodium AND sennosides, polyethylene glycoL (MIRALAX) oral powder, labetaloL, acetaminophen, sodium chloride, potassium chloride ER OR potassium chloride ER, bisacodyL, bacitracin zinc-polymyxin B, gelatin compressed, thrombin (Bovine) Vitals: Vital Sign Ranges: Last value Range last 24 hrs Temperature Temp: 36.8 ??C (98.2 ??F) Temp: [36.8 ??C (98.2 ??F)-37.2 ??C (99 ??F)] Heart Rate Heart Rate: (!) 102 Heart Rate: [72-118] Blood Pressure BP: 113/63 BP: (98-170)/(29-90) Respiratory Rate Resp: 21 Resp: [15-27] SpO2 SpO2: 94 % SpO2: [92 %-100 %] Art BP BP (Arterial Line): 134/56 BP (Arterial Line): -- Intake/Output: I/O 09/25 0701 09/26 0700 09/26 0701 09/27 0709/27 0701 09/28 0700 09/28 0701 09/29 0700 P.O. 0 0 0 I.V. (mL/kg/hr) 1360.8 (0.6) 529.3 (0.2) 150 (0.1) Other 0 0 0 NG/GT 1225 2140 541.7 IV Piggyback 150 200 100 Irrigation 110 90 180 Total Intake(mL/kg) 2845.8 (31.9) 2959.3 (33.2) 971.7 (11.4) Urine (mL/kg/hr) 3500 (1.6) 4385 (2) 1405 (0.7) Emesis/NG output 0 0 0 Other 0 0 Stool 200 1025 50 Blood 0 Urine/Stool Mixed 0 Total Output(mL/kg) 3700 (41.5) 5410 (60.7) 1455 (17) Net -854.2 -2450.7 -483.3 Unmeasured Urine Occurrence 0 x 0 x 0 x Stool Occurrence 5 x 3 x 0 x Emesis Occurrence 0 x 0 x 0 x Lines/Drains/Airways: Percutaneous Central Line 10/25/24 1405 Triple Lumen subclavian vein, right (Active) Indication/Daily Review of Necessity Medications known to cause phlebitis (vasopressors, concentrated electrolytes, TPN, chemotherapy) 09/27/24799 Site Preparation/Maintenance dressing: dry and intact 09/27/241199 Dressing change due 10/03/24 09/27/24799 Securement catheter securement device, secured with 09/27/24799 Distal Patency/Maintenance flushed without difficulty 09/27/241199 Medial Patency/Maintenance flushed without difficulty 09/27/241199 Proximal Patency/Maintenance flushed without difficulty 09/27/241199 Phlebitis 0-->no symptoms 09/27/241199 Infiltration 0-->no symptoms 09/27/241199 Site Signs/Symptoms no redness;no swelling;no warmth;no pain;no palpable cord;no streak formation;no drainage 09/26/241999 Rectal Tube 09/26/245 fecal management system (Active) Balloon Inflation Volume (mL) 45 09/27/24799 Reposition balloon deflated;rectal tube advanced slightly 09/26/24743 Outcome comfort enhanced 09/27/24799 Tolerance no signs/symptoms of discomfort 09/27/24799 Irrigation/Flush (mL) 0 (mL) 09/27/24799 Stool Output (mL) 50 09/27/24799 Net Rectal Tube Output (mL) 50 09/27/24799 Urethral Catheter 09/16/24 latex 14 5 10 (Active) Indication/Necessity Acute urinary retention or obstruction;Q1-2hr UOP in ICU patient without alternative 09/27/24799 Securement secured to upper leg with adhesive device 09/27/24799 Maintenance Closed system maintained;Catheter secured to leg;Urine flow is unobstructed;Collection bag maintained below the bladder;Collection bag emptied when half full or at least every 4 hours using a separate container for this patient, drainage spigot not allowed to touch container;Hand hygiene performed before and after touching catheter and collection system 09/27/24799 Foreskin not applicable 09/23/241999 Tolerance no signs/symptoms of discomfort 09/26/241999 Urine Characteristics yellow 09/27/24799 Irrigation/Flush (mL) 0 (mL) 09/27/24599 Urine Output (mL) 40 09/27/24 08 Net Catheter Output (mL) 400 (mL) 09/27/24 06 Naso/Oral Tube 09/18/24 1229 small bore;nonweighted right nostril (Active) Placement Check Methods distal length tube measured 09/26/241999 Catheter Depth (cm) 62 cm 09/27/24799 Securement bridled 09/27/24799 Insertion Site Appearance no redness;no warmth;no tenderness;no skin breakdown;no drainage 800 Tolerance no adverse signs/symptoms 09/27/24799 Clamp Status/Tolerance unclamped 09/27/24799 Flush/Irrigation water 09/27/24799 Tubing Change 09/24/24 09/22/24 08 Irrigation/Flush (mL) 30 (mL) 09/27/241199 Tube Intake (mL) 160 09/27/24799 General Output (mL) 0 09/26/24 0400 Net Naso/Oral Volume (mL) 30 (mL) 09/27/24 1200 Incision 09/16/24 Right parietal region other (see comments) (Active) Incision WDL 09/27/24799 Dressing Appearance dry;intact 09/27/24799 Appearance stacey intact;no drainage;no redness;no swelling;no tenderness;no warmth 09/26/24799 Drainage Characteristics/Odor serosanguineous 09/21/24 07 Drainage Amount none 09/26/24799 Dressing open to air 09/27/24799 Output (mL) 0 09/26/24 08 Labs: No results found for: PHART, PO2ART, [id number] Recent Labs 09/28/24 0358 WBC 35.37* RBC 3.70* HGB 11.0* HCT 34.0* MCV 91.9 MCH 29.7 MCHC 32.4 PLATELET 443* RDWCV 13.7 Recent Labs 09/28/24 0358 NA 138 K 4.0 CL 106 CO2 22 BUN 21* CREATININE 0.49* GLUCOSE 161 WBC 35 from 40, bands 3.5% (downtrending) BCX ngtd Trops flat C. Diff negative Imaging: EKG NSR with ZAIN or STD Physical Exam: NAD R gaze preference, will not cross midline for me today, L eye inward and down Dry MM Diffuse rhonchi, good air movement, intermittent sonorous respirations, similar to yesterday RRR no mgr Neuro: Gestures to communicate RUE/RLE FC LUE flaccid, grimace to pain LLE flicker to pain ASSESSMENT & PLAN: 74F with ICH Neuro: ICH s/p heparin IVP for watchman procedure CV: s/p watchman procedure - SBP < 160 - con't norvasc 5 daily Pulm: no acute, con't suctioning prn FEN/Renal: - NPO per [employer] - TF GI: diarrhea/con't rectal tube ID: [id number] started 09/25 for possible aspiration PNA Endo: ISS with good control Heme: no acute PPx: SQH Tubes/Lines/Drains: pivs, remove hill Code Status: Attempt Cardiopulmonary Resuscitation - Inpatient Dispo: improving leukocytosis, suspect 2/2 partially treated aspiration PNA although quite pronounced, will discuss with neurology for possible SDU transfer //////////////////////////////////////////////////////////////////////////////// //// Message sent to PCP to inform them of incidental adrenal nodule on imaging requiring followup. * Rob Guzman MD - 09/28/2024 7:17 AM EST [facility] [place] NEUROSURGERY PROGRESS NOTE ID: Lucero Bruno 74 y.o. female : 1950 LOS: 12 Neurosurgical Procedures this Admission: 09/16/24, Dr. Espinal: R craniotomy for IPH evacuation INTERVAL Hx: -NAEON. Neurostable. Nonverbal MEDICATIONS: Scheduled Meds: amLODIPine 5 mg Per NG tube Daily piperacillin-tazobactam 3.375 g Intravenous Q8H insulin lispro 0-3 Units Subcutaneous Q4H CARLY ipratropium-albuteroL 3 mL Nebulization Q4H heparin (porcine) 5,000 Units Subcutaneous Q8H CARLY insulin lispro 2-12 Units Subcutaneous Q4H CARLY dilTIAZem 90 mg Per NG tube Q6H CARLY multivitamin with minerals 1 tablet Per NG tube Daily Continuous Infusions: tube feeding diet 40 mL/hr at 09/28/24 0639 PRN: docusate sodium, 100 mg, BID PRN And sennosides, 17.6 mg, BID PRN polyethylene glycoL (MIRALAX) oral powder, 17 g, Daily PRN labetaloL, 20 mg, Q4H PRN acetaminophen, 975 mg, Q6H PRN sodium chloride, 4 mL, Q6H PRN potassium chloride ER, 40 mEq, Q4H PRN Or potassium chloride ER, 20 mEq, Q4H PRN glucose 40% oral geL, 15-30 g of glucose, Q15 Min PRN Or dextrose, 250 mL, Q15 Min PRN Or glucagon, 1 mg, Q15 Min PRN bisacodyL, 10 mg, Daily PRN bacitracin zinc-polymyxin B, , PRN gelatin compressed, , PRN thrombin (Bovine), , PRN EXAM: Temp: [36.8 ??C (98.2 ??F)-37.2 ??C (99 ??F)] Heart Rate: [72-118] Resp: [15-27] BP: (98-170)/(29-90) SpO2: [92 %-100 %] Heart Rate from SpO2: [66 bpm-114 bpm] I/O: Intake/Output Summary (Last 24 hours) at 09/28/2024 0717 Last data filed at 09/28/2024 0600 Gross per 24 hour Intake 971.67 ml Output 1455 ml Net -483.33 ml Drains: AUBREY out 09/21 GEN: extubated - nonverbal NEURO: A/ox3 with yes/no questions via thumbs up/thumbs down (name/year/place) R pupil 3mm, reactive L pupil 4mm R gaze preference, does not come to midline MOTOR: RUE: FC, thumbs up LUE: withdraws to noxious stimuli RLE: FC, wiggles toes LLE: flicker wiggles toes to command L hemianesthesia Incision CDI - stacey LABS: Recent Labs 09/28/24 0358 09/27/24 0138 09/26/24 0031 WBC 35.37* 39.03* 30.94* HGB 11.0* 12.5 10.7* PLATELET 443* 510* 434* Recent Labs 09/28/24 0358 09/27/24 1646 09/27/24 0138 09/26/24 1216 09/26/24 0635 NA 138 -- 139 -- 137 K 4.0 4.0 3.8 < > 3.7 CL 106 -- 103 -- 104 CO2 22 -- 25 -- 23 BUN 21* -- 17 -- 23* CREATININE 0.49* -- 0.51* -- 0.53* < > = values in this interval not displayed. No results for input(s): PT, INR in the last 72 hours. IMAGING: Results for orders placed or performed during the hospital encounter of 09/16/24 CT Head wo Contrast (Generic) (Exam End: 09/16/2024 5:26 PM) Result Value WORKSTATION ID [id number] Impression Interval expansion of now large right-sided temporal occipital intraparenchymal hemorrhage with significant mass effect resulting in 1 cm leftward midline shift. Per chart review, this patient was seen by neurosurgery and taken emergently to the OR. I have personally reviewed the image(s) and the resident's interpretation and agree with the findings, Lana Reinoso at 09/16/2024 6:01 PM Thank you for letting us participate in the care of this patient. If you are a health care provider and have any questions regarding this report, please contact the number below. For patients who have questions please contact the health ocular care technician that requested your imaging first. Electronically signed by: Lana Reinoso [facility] ([phone]), at 09/16/2024 6:[address] Head wo Contrast (Generic) (Exam End: 09/16/2024 11:21 PM) Result Value WORKSTATION ID [id number] Impression CT head: 1. Interval craniotomy with residual or recurrent hemorrhage right temporal and parietal lobe. 2. New hemorrhage right [...] in the care of this patient. If you are a health care provider and have any questions regarding this report, please contact the number below. For patients who have questions please contact the health ocular care technician that requested your imaging first. Electronically signed by: Armando Pan MD, [facility] ([phone]), at 09/17/2024 1:[address] Venogram Brain (Exam End: 09/16/2024 11:21 PM) Result Value WORKSTATION ID [id number] Impression CT head: 1. Interval craniotomy with residual or recurrent hemorrhage right temporal and parietal lobe. 2. New hemorrhage right [...] in the care of this patient. If you are a health care provider and have any questions regarding this report, please contact the number below. For patients who have questions please contact the health ocular care technician that requested your imaging first. Electronically signed by: Armando Pan MD, [facility] ([phone]), at 09/17/2024 1:42 AM XR Chest One View (Exam End: 09/16/2024 11:00 PM) Result Value WORKSTATION ID [id number] Impression Satisfactorily positioned enteric and endotracheal tubes. Left lower lobe atelectasis versus pneumonia. Thank you for letting us participate in the care of this patient. If you are a health care provider and have any questions regarding this report, please contact the number below. For patients who have questions please contact the health ocular care technician that requested your imaging first. Electronically signed by: Pamela Beard MD, [facility] ([phone]), at 09/17/2024 12:09 AM XR Abdomen 1 view (Generic) (Exam End: 09/16/2024 11:00 PM) Result Value WORKSTATION ID [id number] Impression Satisfactorily positioned enteric and endotracheal tubes. Left lower lobe atelectasis versus pneumonia. Thank you for letting us participate in the care of this patient. If you are a health care provider and have any questions regarding this report, please contact the number below. For patients who have questions please contact the health ocular care technician that requested your imaging first. Electronically signed by: Pamela Beard MD, [facility] ([phone]), at 09/17/2024 12:[address] Head wo Contrast (Generic) (Exam End: 09/17/2024 4:51 AM) Result Value WORKSTATION ID [id number] Impression Increased size and density of dominant right parietal hematoma, and of hemorrhage extending medially into the basal ganglia. Foci of thalamocapsular hemorrhage on the right are stable. No evidence of progressive intraventricular hemorrhage or ventricular dilation. No definitive increase in leftward midline shift or herniation. Thank you for letting us participate in the care of this patient. If you are a health care provider and have any questions regarding this report, please contact the number below. For patients who have questions please contact the health ocular care technician that requested your imaging first. Electronically signed by: Elvin Bloden DO, [facility] ([phone]), at 09/17/2024 8:38 AM XR Chest One View (Exam End: 09/17/2024 2:13 PM) Result Value WORKSTATION ID [id number] Impression 1. No focal opacity in lung 2. Pulmonary edema, progressed since last examination. 3. Tip of ET tube is 23 mm superior cuff to jonathan. Consider adjustment. 4. Sidehole and tip of NG tube is below the diaphragm. Thank you for letting us participate in the care of this patient. If you are a health care provider and have any questions regarding this report, please contact the number below. For patients who have questions please contact the health ocular care technician that requested your imaging first. Electronically signed by: Zoey Zabala MD, [facility] ([phone]), at 09/17/2024 2:43 PM XR Chest One View (Exam End: 09/18/2024 8:43 AM) Result Value WORKSTATION ID [id number] Impression Tubes and lines as described. Blunting of the left costophrenic angle suggests tiny layering left effusion with associated left basilar consolidation/atelectasis Thank you for letting us participate in the care of this patient. If you are a health care provider and have any questions regarding this report, please contact the number below. For patients who have questions please contact the health ocular care technician that requested your imaging first. Abdomen 1 view (Generic) (Exam End: 09/18/2024 12:31 PM) Result Value WORKSTATION ID [id number] Impression Dobbhoff tube tip along the greater curve of the stomach. Thank you for letting us participate in the care of this patient. If you are a health care provider and have any questions regarding this report, please contact the number below. For patients who have questions please contact the health ocular care technician that requested your imaging first. Brain wwo Contrast (Generic) (Exam End: 09/19/2024 5:43 PM) Result Value WORKSTATION ID [id number] Impression Unchanged size of large right cerebral hemisphere ICH status post partial evacuation. Numerous small foci of decreased acute infarction both along and separate from the site of hemorrhage. These foci are present in both cerebral hemispheres and have a pattern most consistent with embolic infarction. No evidence of AUTOMOBILE DESIGNER malignancy Thank you for letting us participate in the care of this patient. If you are a health care provider and have any questions regarding this report, please contact the number below. For patients who have questions please contact the health ocular care technician that requested your imaging first. Electronically signed by: Rios Swartz MD, [facility] ([phone]), at 09/20/2024 8:[address] Head wo Contrast (Generic) (Exam End: 09/21/2024 3:50 AM) Result Value WORKSTATION ID [id number] Impression Stable hemorrhage right temporal, parietal, right posterior limb internal capsule and right thalamus. Mild progression of vasogenic edema adjacent to hemorrhage. Similar pattern and extent of local and generalized mass effect with stable subfalcine herniation and uncal herniation. Thank you for letting us participate in the care of this patient. If you are a health care provider and have any questions regarding this report, please contact the number below. For patients who have questions please contact the health ocular care technician that requested your imaging first. Electronically signed by: Armando Pan MD, [facility] ([phone]), at 09/21/2024 4:55 AM XR Abdomen 1 view (Generic) (Exam End: 09/21/2024 2:01 PM) Result Value WORKSTATION ID [id number] Impression Dobbhoff tube and enteric tube sidehole and tip is projecting over the expected location of the stomach. I have personally reviewed the image(s) and the resident's interpretation and agree with the findings, Shraddha Cox MD at 09/21/2024 3:40 PM Thank you for letting us participate in the care of this patient. If you are a health care provider and have any questions regarding this report, please contact the number below. For patients who have questions please contact the health ocular care technician that requested your imaging first. Electronically signed by: Shraddha Cox MD, [facility] ([phone]), at 09/21/2024 3:40 PM XR Chest One View (Exam End: 09/21/2024 2:01 PM) Result Value WORKSTATION ID [id number] Impression ET tube with tip projecting approximately 1.4 cm above the jonathan. Recommend retracting approximately 2 cm and follow-up imaging. New left basilar atelectasis and/or small pleural effusion. Aspiration or pneumonia could also this appearance. I Sacha Shipley MD discussed the results (Impression #1) with Bonnie Vazquez on 09/21/2024 4:42 PM and verified that the results were understood. I have personally reviewed the image(s) and the resident's interpretation and agree with the findings, Octavio Scott MD at 09/21/2024 5:09 PM Thank you for letting us participate in the care of this patient. If you are a health care provider and have any questions regarding this report, please contact the number below. For patients who have questions please contact the health ocular care technician that requested your imaging first. Electronically signed by: Octavio Scott MD, [facility] ([phone]), at 09/21/2024 5:[address] Head wo Contrast (Generic) (Exam End: 09/22/2024 4:02 AM) Result Value WORKSTATION ID [id number] Impression Stable head CT status post removal of subcutaneous drain. No new or enlarging hemorrhage. Stable pattern of mass effect Thank you for letting us participate in the care of this patient. If you are a health care provider and have any questions regarding this report, please contact the number below. For patients who have questions please contact the health ocular care technician that requested your imaging first. Electronically signed by: Armando Pan MD, [facility] ([phone]), at 09/22/2024 4:[address] Angiogram Chest for Pulmonary Embolus w Contrast (Exam End: 09/26/2024 1:37 PM) Result Value WORKSTATION ID [id number] Impression 1. No pulmonary embolism. 2. Pulmonary edema. 3. Bibasilar atelectasis. Superimposed patchy airspace opacity in the left lower lobe may represent atelectasis versus pneumonia. 4. Mild emphysema. 5. Mild cardiomegaly. Left atrial appendage occlusion device in situ. Mild multifocal coronary atherosclerosis. Correlation with echocardiography may be of benefit. 6. Unexpected Findin mm indeterminant left adrenal nodule. Per ACR white paper guidelines, follow-up CT of the Abdomen (Adrenal protocol - without and with intravenous contrast) is recommended in one year. 7. Mild sigmoid diverticulosis coli without secondary signs of acute diverticulitis. 8. Interval development of anasarca, which may be related to hypervolemia, hypoproteinemia, or combination thereof. 9. Endotracheal catheter in situ with tip 4 mm above the jonathan. Recommend retraction. 10. Enteric catheter in situ with tip terminating in the gastric pylorus. 11. Hill catheter in situ. Persistent distention of the urinary bladder. Correlation with catheter functionality is recommended. 12. Rectal catheter in situ. Thank you for letting us participate in the care of this patient. If you are a health care provider and have any questions regarding this report, please contact the number below. For patients who have questions please contact the health ocular care technician that requested your imaging first. Electronically signed by: Marvin Decker DO, [facility] ([phone]), at 09/26/2024 1:[address] Head wo Contrast (Generic) (Exam End: 09/26/2024 1:37 PM) Result Value WORKSTATION ID [id number] Impression 1. Stable right-sided parenchymal and subdural hemorrhages, associated mass effect and midline shift. 2. Stable left intraventricular hemorrhage. 3. No new or enlarging hemorrhages or extra-axial collections. Thank you for letting us participate in the care of this patient. If you are a health care provider and have any questions regarding this report, please contact the number below. For patients who have questions please contact the health ocular care technician that requested your imaging first. Electronically signed by: Smiley Cordova MD, [facility] ([phone]), at 09/26/2024 2:[address] Abdomen & Pelvis w Contrast (Exam End: 09/26/2024 1:37 PM) Result Value WORKSTATION ID [id number] Impression 1. No pulmonary embolism. 2. Pulmonary edema. 3. Bibasilar atelectasis. Superimposed patchy airspace opacity in the left lower lobe may represent atelectasis versus pneumonia. 4. Mild emphysema. 5. Mild cardiomegaly. Left atrial appendage occlusion device in situ. Mild multifocal coronary atherosclerosis. Correlation with echocardiography may be of benefit. 6. Unexpected Findin mm indeterminant left adrenal nodule. Per ACR white paper guidelines, follow-up CT of the Abdomen (Adrenal protocol - without and with intravenous contrast) is recommended in one year. 7. Mild sigmoid diverticulosis coli without secondary signs of acute diverticulitis. 8. Interval development of anasarca, which may be related to hypervolemia, hypoproteinemia, or combination thereof. 9. Endotracheal catheter in situ with tip 4 mm above the jonathan. Recommend retraction. 10. Enteric catheter in situ with tip terminating in the gastric pylorus. 11. Hill catheter in situ. Persistent distention of the urinary bladder. Correlation with catheter functionality is recommended. 12. Rectal catheter in situ. Thank you for letting us participate in the care of this patient. If you are a health care provider and have any questions regarding this report, please contact the number below. For patients who have questions please contact the health ocular care technician that requested your imaging first. Electronically signed by: Marvin Decker DO [facility] ([phone]), at 09/26/2024 1:54 PM XR Chest One View (Exam End: 09/28/2024 4:06 AM) Result Value WORKSTATION ID [id number] Impression 1. Limited examination. 2. Interval removal of the endotracheal catheter. 3. Stable position of other medical hardware. 4. Decreased but persistent patchy left retrocardiac airspace opacity, may be resolving atelectasis or pneumonia. Thank you for letting us participate in the care of this patient. If you are a health care provider and have any questions regarding this report, please contact the number below. For patients who have questions please contact the health ocular care technician that requested your imaging first. Electronically signed by: Marvin Decker DO [facility] ([phone]), at 09/28/2024 4:12 AM Assessment: 74 y.o. female with PMHx notable for Afib (taking ASA, previously on apixaban-stopped taking after IPH in April 2024), CHRISTOPHER, HLD, BMI of 36, prior IPH 04/2024 who presented to hospital 09/16/24 for placement of Watchman with cardiology. She developed headaches and nausea post op and CT scan noted large R njlerdqh-rrjqvpz-auoqzceuh IPH. Now s/p R craniotomy for IPH evacuation. Repeated CTH wo contrast post-op overnight into 09/17 showing increased hemorrhage on R but exam remains stable. Will defer further neurosurgical intervention at this time and continue to closely monitor exam. 09/18 AM noted L eye down, possible out. MRI Brain wwo on 09/19 showing small scattered infarcts c/w embolic infarcts not that would explain possible palsy. Plan: -No acute neurosurgical intervention -Neurostable for q4h neurochecks -Rec airway maintenance with RT and nursing (staggered q4h suction for secretions) -Respiratory treatment regimen per medicine/stepdown -MRI Brain wwo done -SBP 90-160 -DVT ppx with SCDs, SQH -Hold other antiplatelets/anticoagulants -CUTTER AND EDGE TRIMMER for diet advancement -Na goal eunatremia -Rest of care per primary For questions please call NSGY pager [phone] Rob Guzman MD Clinical Documentation Improvement: Active Hospital Problems Diagnosis Presence of Watchman left atrial appendage closure device Resolved Hospital Problems No resolved problems to display. * Abdulkadir Lala RN - 09/28/2024 4:25 AM EST PT was complaining of chest pain and diff breathing, provider notified. EKG, Trop, chest xray ordered and completed. Provider at bedside talking with PT. EKG showed ST, awaiting lab results. Tylenol given for chest pain, PT says more external pain. * Abdulkadir Lala RN - 09/27/2024 8:03 PM EST Provider notified of pupillometer showing L>R by 1mm and sluggish response Lft * Diana Cárdenas RD - 09/27/2024 5:05 PM EST Nutrition Progress Note Lucero Bruno is a 74 y.o. 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 Interval History No data found. Reason for Assessment: Follow-up, ICU Tube Feeding Nutrition Recommendations: Resume TF and limit holds as able. Average tube feeding provision over past 3 days; 570 mL vs daily goal volume of 1200 mL formula (47.5% of goal) Enteral Nutrition: Peptamen AF with a goal rate of 60 ml per hour This rate is calculated to compensate for unplanned time off feedings due to potential procedures, etc. At goal, this will provide: Peptamen AF Total Volume Per Day: 1200 mL Scoops of Protein: 0 Calories per Day: 1440 Protein per Day: 91 g Free Water mL per Day: 974 % RDI: 96 % Monitor hydration status on above TFs as they are concentrated. Pt may need additional fluids depending on IVFs, med flushes, etc. Daily weights. Mag and Phos on daily labs. BG goal 140-180 in critical care. I was able to discuss plan with provider NCC [id number] . Current Nutrition Regimen: Active Orders Diet NPO diet (Give Meds) Frequency: Effective Now Number of Occurrences: Until Specified All Active TF Orders: Tubefeeding Orders (From admission, onward) Start Dose/Rate Route Frequency Ordered Stop 09/25/24 1515 tube feeding diet 1,200 mL Small Bore, Soft Tip Tube CONTINUOUS 09/25/24 1421 Average tube feeding provision over past 3 days; 570 mL vs daily goal volume of 1200 mL formula (47.5% of goal) Tolerance or barriers to meeting needs: holds Assessment: Lab Results Component Value Date NA 139 09/27/2024 NA 141 05/08/2024 K 3.8 09/27/2024 K 4.2 05/08/2024 CL 103 09/27/2024 CL 105 05/08/2024 CO2 25 09/27/2024 CO2 25 05/08/2024 BUN 17 09/27/2024 BUN 14 05/08/2024 CREATININE 0.51 (L) 09/27/2024 CREATININE 0.68 (L) 05/08/2024 ESTGFR 99 09/27/2024 ESTGFR 92 05/08/2024 MAGNESIUM 0.91 09/27/2024 MAGNESIUM 0.85 05/08/2024 CALCIUM 8.5 09/27/2024 CALCIUM 9.2 05/08/2024 PHOS 4.0 09/27/2024 PHOS 3.1 05/08/2024 AST 28 09/26/2024 AST 15 05/08/2024 ALT 72 (H) 09/26/2024 ALT 14 05/08/2024 ALKPHOS 81 09/26/2024 ALKPHOS 92 05/08/2024 BILITOT 0.4 09/26/2024 BILITOT 0.4 05/08/2024 BILIDIR <0.2 09/26/2024 BILIDIR 0.1 05/08/2024 TRIG 95 09/20/2024 TRIG 101 05/06/2024 HA1C 6.1 (H) 09/17/2024 HA1C 6.0 (H) 05/06/2024 25OHVITD 38 11/14/2023 Lab Results Component Value Date POCGLU 123 09/27/2024 POCGLU 145 09/27/2024 POCGLU 106 09/27/2024 POCGLU 148 09/27/2024 POCGLU 121 09/26/2024 POCGLU 159 09/26/2024 Patient Lines/Drains/Airways Status Active Nutritional LDAs Name Placement date Placement time Site Days Naso/Oral Tube 09/18/24 1229 small bore;nonweighted right nostril 09/18/24 1229 right nostril 9 Percutaneous Central Line 09/17/24 1405 Triple Lumen subclavian vein, right 09/17/24 1405 -- 10 Rectal Tube 09/26/24 0245 fecal management system 09/26/24 0245 -- 1 Urethral Catheter 09/16/24 latex 14 5 10 09/16/24 -- -- 11 Oxygen Therapy / Airway Device: Nasal cannula Shift Pressure Injury Prevention Occiput: No Injury Thoracic Spine: No Injury Sacral: No Injury Ischial - left: No Injury Ischial - right: No Injury Heel - left: No Injury Heel - right: No Injury Elbow - left: No Injury Elbow - right: No Injury Device Sites: IV sites, BP Cuff, ECG Leads, O2 sat monitor, oxygen tubing EEG Skin Appearance: clean, intact, dry Other Sites: DHT Last Bowel Movement: 08/27/24 Intake/Output Summary (Last 24 hours) at 09/27/2024 1712 Last data filed at 09/27/2024 1600 Gross per 24 hour Intake 806.48 ml Output 2830 ml Net -2023.52 ml Relevant medications: Continuous PHENYLephrine Stopped (09/26/24 0501) tube feeding diet Stopped (09/26/24 0400) Scheduled amLODIPine 5 mg Per NG tube Daily piperacillin-tazobactam 3.375 g Intravenous Q8H insulin lispro 0-3 Units Subcutaneous Q4H CARLY ipratropium-albuteroL 3 mL Nebulization Q4H heparin (porcine) 5,000 Units Subcutaneous Q8H CARLY insulin lispro 2-12 Units Subcutaneous Q4H CARLY dilTIAZem 90 mg Per NG tube Q6H CARLY multivitamin with minerals 1 tablet Per NG tube Daily PRN docusate sodium AND sennosides, polyethylene glycoL (MIRALAX) oral powder, potassium chloride in water OR potassium chloride in water OR potassium chloride in water, labetaloL, acetaminophen, sodium chloride, fentaNYL (PF), potassium chloride ER OR potassium chloride ER, snsghdu13% oral geL OR dextrose OR glucagon, bisacodyL, bacitracin zinc-polymyxin B, gelatin compressed, thrombin (Bovine) Anthropometrics: Admit Weight: 88.45 kg Estimated body mass index is 38.41 kg/m?? as calculated from the following: Height as of 09/21/24: 152.4 cm (5'). Weight as of this encounter: 89.2 kg (196 lb 10.4 oz). [place] Body Weight (IBW) (kg): 45.45 Wt Readings from Last 10 Encounters: 09/24/24 89.2 kg (196 lb 10.4 oz) 09/21/24 91.3 kg (201 lb 4.5 oz) 09/18/24 91.5 kg (201 lb 11.5 oz) 07/28/24 85.3 kg (188 lb) 05/24/24 81.6 kg (180 lb) 05/08/24 84.1 kg (185 lb 6.4 oz) 05/08/24 82 kg (180 lb 12.4 oz) 04/23/24 83.9 kg (185 lb) 03/03/24 85 kg (187 lb 6.3 oz) 11/14/23 87.2 kg (192 lb 3.2 oz) Patient Vitals for the past 168 hrs: Weight 09/24/24 0600 89.2 kg (196 lb 10.4 oz) 09/23/24 0400 89.2 kg (196 lb 10.4 oz) 09/22/24 0600 89 kg (196 lb 3.4 oz) 09/21/24 0400 91.3 kg (201 lb 4.5 oz) Weight Source: Bed Estimated / Assessed Needs: Kcal / K - 1597 Kcal (14 Kcal/Kg - 18 Kcal/Kg) Estimated Protein Needs: 91 g - 114 g (2.0 g/Kg - 2.5 g/Kg IBW) Nutrition intake and intake history / interview: 09/27: TF off. Pressor off. Extubated, not cleared for PO intake. 09/23: TF held for possible extubation today, restarted this afternoon. Reassessed needs, TF recs updated. 09/21: Pt extubated and reintubated today, restarted on propofol. TF held. 09/17: Cx for TF recs. Per chart, wt has been fluctuating 82-89 kg x 10 months. No data found. Nutrition Focused Physical Exam: Not performed Malnutrition Diagnosis: Not identified (Maribel, JPEN J Parenteral Enteral Nutr. 2011; 36(3): 273-83) Nutrition to continue to follow up while inpatient Thank you, Diana Cárdenas RDN, LD, [facility] Clinical Nutrition * Danielle Cosby RCP - 09/27/2024 4:50 PM EST 09/27/24 1600 Oxygen Therapy O2 Device NC O2 Flow Rate (L/min) 3 L/min SpO2 95 % Resp 20 Pt on 3L arlene well Pt has orders for duoneb q 4 I gave early am treatment B/ S VIKTOR penaloza RN gave treatments today later in the day Will continue to follow pt * Rob Guzman MD - 09/27/2024 2:08 PM EST [facility] [place] NEUROSURGERY PROGRESS NOTE ID: Lucero Bruno 74 y.o. female : 1950 LOS: 11 Neurosurgical Procedures this Admission: 09/16/24, Dr. Espinal: R craniotomy for IPH evacuation INTERVAL Hx: -KARL -extubated 09/26 -FC on right; awake MEDICATIONS: Scheduled Meds: amLODIPine 5 mg Per NG tube Daily piperacillin-tazobactam 3.375 g Intravenous Q8H insulin lispro 0-3 Units Subcutaneous Q4H CARLY ipratropium-albuteroL 3 mL Nebulization Q4H heparin (porcine) 5,000 Units Subcutaneous Q8H CARLY insulin lispro 2-12 Units Subcutaneous Q4H CARLY dilTIAZem 90 mg Per NG tube Q6H CARLY multivitamin with minerals 1 tablet Per NG tube Daily Continuous Infusions: PHENYLephrine Stopped (09/26/24 0501) tube feeding diet Stopped (09/26/24 0400) PRN: docusate sodium, 100 mg, BID PRN And sennosides, 17.6 mg, BID PRN polyethylene glycoL (MIRALAX) oral powder, 17 g, Daily PRN potassium chloride in water, 20 mEq, Q1H PRN Or potassium chloride in water, 20 mEq, Q1H PRN Or potassium chloride in water, 20 mEq, Q1H PRN labetaloL, 20 mg, Q4H PRN acetaminophen, 975 mg, Q6H PRN sodium chloride, 4 mL, Q6H PRN fentaNYL (PF), 25 mcg, Q30 Min PRN potassium chloride ER, 40 mEq, Q4H PRN Or potassium chloride ER, 20 mEq, Q4H PRN glucose 40% oral geL, 15-30 g of glucose, Q15 Min PRN Or dextrose, 250 mL, Q15 Min PRN Or glucagon, 1 mg, Q15 Min PRN bisacodyL, 10 mg, Daily PRN bacitracin zinc-polymyxin B, , PRN gelatin compressed, , PRN thrombin (Bovine), , PRN EXAM: Temp: [37.1 ??C (98.7 ??F)-37.2 ??C (99 ??F)] Heart Rate: [72-109] Resp: [12-31] BP: (93-196)/(52-110) SpO2: [88 %-100 %] Heart Rate from SpO2: [72 bpm-109 bpm] I/O: Intake/Output Summary (Last 24 hours) at 09/27/2024 1408 Last data filed at 09/27/2024 1200 Gross per 24 hour Intake 736.48 ml Output 3405 ml Net -2668.52 ml Drains: AUBREY out 09/21 GEN: extubated - nonverbal this am NEURO: A/ox3 with yes/no questions via thumbs up/thumbs down (name/year/place) R pupil 3mm, reactive L pupil 4mm R gaze preference, does not come to midline MOTOR: RUE: FC, thumbs up LUE: withdraws to noxious stimuli RLE: FC, wiggles toes LLE: flicker wiggles toes to command L hemianesthesia Incision CDI - stacey LABS: Recent Labs 09/27/2413709/26/24 0031 09/25/24 0429 WBC 39.03* 30.94* 27.24* HGB 12.5 10.7* 10.5* PLATELET 510* 434* 379* Recent Labs 09/27/2413709/26/24 1216 09/26/24 0635 09/26/24 0031 NA 139 -- 137 137 K 3.8 4.2 3.7 3.7 CL 103 -- 104 104 CO2 25 -- 23 23 BUN 17 -- 23* 26* CREATININE 0.51* -- 0.53* 0.56* No results for input(s): PT, INR in the last 72 hours. IMAGING: Results for orders placed or performed during the hospital encounter of 09/16/24 CT Head wo Contrast (Generic) (Exam End: 09/16/2024 5:26 PM) Result Value WORKSTATION ID [id number] Impression Interval expansion of now large right-sided temporal occipital intraparenchymal hemorrhage with significant mass effect resulting in 1 cm leftward midline shift. Per chart review, this patient was seen by neurosurgery and taken emergently to the OR. I have personally reviewed the image(s) and the resident's interpretation and agree with the findings, Lana Reinoso at 09/16/2024 6:01 PM Thank you for letting us participate in the care of this patient. If you are a health care provider and have any questions regarding this report, please contact the number below. For patients who have questions please contact the health ocular care technician that requested your imaging first. Electronically signed by: Lana Reinoso [facility] ([phone]), at 09/16/2024 6:[address] Head wo Contrast (Generic) (Exam End: 09/16/2024 11:21 PM) Result Value WORKSTATION ID [id number] Impression CT head: 1. Interval craniotomy with residual or recurrent hemorrhage right temporal and parietal lobe. 2. New hemorrhage right [...] in the care of this patient. If you are a health care provider and have any questions regarding this report, please contact the number below. For patients who have questions please contact the health ocular care technician that requested your imaging first. Electronically signed by: Armando Pan MD, [facility] ([phone]), at 09/17/2024 1:[address] Venogram Brain (Exam End: 09/16/2024 11:21 PM) Result Value WORKSTATION ID [id number] Impression CT head: 1. Interval craniotomy with residual or recurrent hemorrhage right temporal and parietal lobe. 2. New hemorrhage right [...] in the care of this patient. If you are a health care provider and have any questions regarding this report, please contact the number below. For patients who have questions please contact the health ocular care technician that requested your imaging first. Chest One View (Exam End: 09/16/2024 11:00 PM) Result Value WORKSTATION ID [id number] Impression Satisfactorily positioned enteric and endotracheal tubes. Left lower lobe atelectasis versus pneumonia. Thank you for letting us participate in the care of this patient. If you are a health care provider and have any questions regarding this report, please contact the number below. For patients who have questions please contact the health ocular care technician that requested your imaging first. Electronically signed by: Pamela Beard MD, [facility] ([phone]), at 09/17/2024 12:09 AM XR Abdomen 1 view (Generic) (Exam End: 09/16/2024 11:00 PM) Result Value WORKSTATION ID [id number] Impression Satisfactorily positioned enteric and endotracheal tubes. Left lower lobe atelectasis versus pneumonia. Thank you for letting us participate in the care of this patient. If you are a health care provider and have any questions regarding this report, please contact the number below. For patients who have questions please contact the health ocular care technician that requested your imaging first. Electronically signed by: Pamela Beard MD, [facility] ([phone]), at 09/17/2024 12:[address] Head wo Contrast (Generic) (Exam End: 09/17/2024 4:51 AM) Result Value WORKSTATION ID [id number] Impression Increased size and density of dominant right parietal hematoma, and of hemorrhage extending medially into the basal ganglia. Foci of thalamocapsular hemorrhage on the right are stable. No evidence of progressive intraventricular hemorrhage or ventricular dilation. No definitive increase in leftward midline shift or herniation. Thank you for letting us participate in the care of this patient. If you are a health care provider and have any questions regarding this report, please contact the number below. For patients who have questions please contact the health ocular care technician that requested your imaging first. Electronically signed by: Elvin Bolden DO, [facility] ([phone]), at 09/17/2024 8:38 AM XR Chest One View (Exam End: 09/17/2024 2:13 PM) Result Value WORKSTATION ID [id number] Impression 1. No focal opacity in lung 2. Pulmonary edema, progressed since last examination. 3. Tip of ET tube is 23 mm superior cuff to jonathan. Consider adjustment. 4. Sidehole and tip of NG tube is below the diaphragm. Thank you for letting us participate in the care of this patient. If you are a health care provider and have any questions regarding this report, please contact the number below. For patients who have questions please contact the health ocular care technician that requested your imaging first. Electronically signed by: Zoey Zabala MD, [facility] ([phone]), at 09/17/2024 2:43 PM XR Chest One View (Exam End: 09/18/2024 8:43 AM) Result Value WORKSTATION ID [id number] Impression Tubes and lines as described. Blunting of the left costophrenic angle suggests tiny layering left effusion with associated left basilar consolidation/atelectasis Thank you for letting us participate in the care of this patient. If you are a health care provider and have any questions regarding this report, please contact the number below. For patients who have questions please contact the health ocular care technician that requested your imaging first. Abdomen 1 view (Generic) (Exam End: 09/18/2024 12:31 PM) Result Value WORKSTATION ID [id number] Impression Dobbhoff tube tip along the greater curve of the stomach. Thank you for letting us participate in the care of this patient. If you are a health care provider and have any questions regarding this report, please contact the number below. For patients who have questions please contact the health ocular care technician that requested your imaging first. Brain wwo Contrast (Generic) (Exam End: 09/19/2024 5:43 PM) Result Value WORKSTATION ID [id number] Impression Unchanged size of large right cerebral hemisphere ICH status post partial evacuation. Numerous small foci of decreased acute infarction both along and separate from the site of hemorrhage. These foci are present in both cerebral hemispheres and have a pattern most consistent with embolic infarction. No evidence of AUTOMOBILE DES[employer] malignancy Thank you for letting us participate in the care of this patient. If you are a health care provider and have any questions regarding this report, please contact the number below. For patients who have questions please contact the health ocular care technician that requested your imaging first. Electronically signed by: Rios Swartz MD, [facility] ([phone]), at 09/20/2024 8:[address] Head wo Contrast (Generic) (Exam End: 09/21/2024 3:50 AM) Result Value WORKSTATION ID [id number] Impression Stable hemorrhage right temporal, parietal, right posterior limb internal capsule and right thalamus. Mild progression of vasogenic edema adjacent to hemorrhage. Similar pattern and extent of local and generalized mass effect with stable subfalcine herniation and uncal herniation. Thank you for letting us participate in the care of this patient. If you are a health care provider and have any questions regarding this report, please contact the number below. For patients who have questions please contact the health ocular care technician that requested your imaging first. Electronically signed by: Armando Pan MD, [facility] ([phone]), at 09/21/2024 4:55 AM XR Abdomen 1 view (Generic) (Exam End: 09/21/2024 2:01 PM) Result Value WORKSTATION ID [id number] Impression Dobbhoff tube and enteric tube sidehole and tip is projecting over the expected location of the stomach. I have personally reviewed the image(s) and the resident's interpretation and agree with the findings, Shraddha Cox MD at 09/21/2024 3:40 PM Thank you for letting us participate in the care of this patient. If you are a health care provider and have any questions regarding this report, please contact the number below. For patients who have questions please contact the health ocular care technician that requested your imaging first. Electronically signed by: Shraddha Cox MD, [facility] ([phone]), at 09/21/2024 3:40 PM XR Chest One View (Exam End: 09/21/2024 2:01 PM) Result Value WORKSTATION ID [id number] Impression ET tube with tip projecting approximately 1.4 cm above the jonathan. Recommend retracting approximately 2 cm and follow-up imaging. New left basilar atelectasis and/or small pleural effusion. Aspiration or pneumonia could also this appearance. I Sacha Shipley MD discussed the results (Impression #1) with Bonnie Vazquez on 09/21/2024 4:42 PM and verified that the results were understood. I have personally reviewed the image(s) and the resident's interpretation and agree with the findings, Octavio Scott MD at 09/21/2024 5:09 PM Thank you for letting us participate in the care of this patient. If you are a health care provider and have any questions regarding this report, please contact the number below. For patients who have questions please contact the health ocular care technician that requested your imaging first. Electronically signed by: Octavio Scott MD, [facility] ([phone]), at 09/21/2024 5:[address] Head wo Contrast (Generic) (Exam End: 09/22/2024 4:02 AM) Result Value WORKSTATION ID [id number] Impression Stable head CT status post removal of subcutaneous drain. No new or enlarging hemorrhage. Stable pattern of mass effect Thank you for letting us participate in the care of this patient. If you are a health care provider and have any questions regarding this report, please contact the number below. For patients who have questions please contact the health ocular care technician that requested your imaging first. Electronically signed by: Armando Pan MD, [facility] ([phone]), at 09/22/2024 4:[address] Angiogram Chest for Pulmonary Embolus w Contrast (Exam End: 09/26/2024 1:37 PM) Result Value WORKSTATION ID [id number] Impression 1. No pulmonary embolism. 2. Pulmonary edema. 3. Bibasilar atelectasis. Superimposed patchy airspace opacity in the left lower lobe may represent atelectasis versus pneumonia. 4. Mild emphysema. 5. Mild cardiomegaly. Left atrial appendage occlusion device in situ. Mild multifocal coronary atherosclerosis. Correlation with echocardiography may be of benefit. 6. Unexpected Findin mm indeterminant left adrenal nodule. Per ACR white paper guidelines, follow-up CT of the Abdomen (Adrenal protocol - without and with intravenous contrast) is recommended in one year. 7. Mild sigmoid diverticulosis coli without secondary signs of acute diverticulitis. 8. Interval development of anasarca, which may be related to hypervolemia, hypoproteinemia, or combination thereof. 9. Endotracheal catheter in situ with tip 4 mm above the jonathan. Recommend retraction. 10. Enteric catheter in situ with tip terminating in the gastric pylorus. 11. Hill catheter in situ. Persistent distention of the urinary bladder. Correlation with catheter functionality is recommended. 12. Rectal catheter in situ. Thank you for letting us participate in the care of this patient. If you are a health care provider and have any questions regarding this report, please contact the number below. For patients who have questions please contact the health ocular care technician that requested your imaging first. Electronically signed by: Marvin Decker DO, [facility] ([phone]), at 09/26/2024 1:[address] Head wo Contrast (Generic) (Exam End: 09/26/2024 1:37 PM) Result Value WORKSTATION ID [id number] Impression 1. Stable right-sided parenchymal and subdural hemorrhages, associated mass effect and midline shift. 2. Stable left intraventricular hemorrhage. 3. No new or enlarging hemorrhages or extra-axial collections. Thank you for letting us participate in the care of this patient. If you are a health care provider and have any questions regarding this report, please contact the number below. For patients who have questions please contact the health ocular care technician that requested your imaging first. Electronically signed by: Smiley Cordova MD, [facility] ([phone]), at 09/26/2024 2:[address] Abdomen & Pelvis w Contrast (Exam End: 09/26/2024 1:37 PM) Result Value WORKSTATION ID [id number] Impression 1. No pulmonary embolism. 2. Pulmonary edema. 3. Bibasilar atelectasis. Superimposed patchy airspace opacity in the left lower lobe may represent atelectasis versus pneumonia. 4. Mild emphysema. 5. Mild cardiomegaly. Left atrial appendage occlusion device in situ. Mild multifocal coronary atherosclerosis. Correlation with echocardiography may be of benefit. 6. Unexpected Findin mm indeterminant left adrenal nodule. Per ACR white paper guidelines, follow-up CT of the Abdomen (Adrenal protocol - without and with intravenous contrast) is recommended in one year. 7. Mild sigmoid diverticulosis coli without secondary signs of acute diverticulitis. 8. Interval development of anasarca, which may be related to hypervolemia, hypoproteinemia, or combination thereof. 9. Endotracheal catheter in situ with tip 4 mm above the jonathan. Recommend retraction. 10. Enteric catheter in situ with tip terminating in the gastric pylorus. 11. Hill catheter in situ. Persistent distention of the urinary bladder. Correlation with catheter functionality is recommended. 12. Rectal catheter in situ. Thank you for letting us participate in the care of this patient. If you are a health care provider and have any questions regarding this report, please contact the number below. For patients who have questions please contact the health ocular care technician that requested your imaging first. Electronically signed by: Marvin Decker DO, [facility] ([phone]), at 09/26/2024 1:54 PM Assessment: 74 y.o. female with PMHx notable for Afib (taking ASA, previously on apixaban-stopped taking after IPH in April 2024), CHRISTOPHER, HLD, BMI of 36, prior IPH 04/2024 who presented to hospital 09/16/24 for placement of Watchman with cardiology. She developed headaches and nausea post op and CT scan noted large R [id number] IPH. Now s/p R craniotomy for IPH evacuation. Repeated CTH wo contrast post-op overnight into 09/17 showing increased hemorrhage on R but exam remains stable. Will defer further neurosurgical intervention at this time and continue to closely monitor exam. 09/18 AM noted L eye down, possible out. MRI Brain wwo on 09/19 showing small scattered infarcts c/w embolic infarcts not that would explain possible palsy. Plan: -Ok for Q2h neuro checks -MRI Brain wwo done -SBP 90-160 -DVT ppx with SCDs, SQH -Hold other antiplatelets/anticoagulants -CUTTER AND EDGE TRIMMER for diet advancement -Na goal eunatremia -Rest of care per primary For questions please call NSGY pager [phone] Rob Guzman MD Clinical Documentation Improvement: Active Hospital Problems Diagnosis Presence of Watchman left atrial appendage closure device Resolved Hospital Problems No resolved problems to display. * Librado Patel MD - 09/27/2024 12:24 PM EST NEUROCRITICAL CARE PROGRESS NOTE Date of Admission: 09/16/2024 10:06 AM LOS: 11 ICU LOS: 10d 15h 24 Hour Events: Extubated yesterday (previously had 1 failed extubation for secretions/hypoxia) - reintubation withedema and significant secretions Significant suctioning needs overnight, decreased this AM Active Medications: PHENYLephrine Stopped (09/26/24 0501) tube feeding diet Stopped (09/26/24 0400) amLODIPine 5 mg Per NG tube Daily piperacillin-tazobactam 3.375 g Intravenous Q8H insulin lispro 0-3 Units Subcutaneous Q4H CARLY ipratropium-albuteroL 3 mL Nebulization Q4H heparin (porcine) 5,000 Units Subcutaneous Q8H CARLY insulin lispro 2-12 Units Subcutaneous Q4H CARLY dilTIAZem 90 mg Per NG tube Q6H CARLY multivitamin with minerals 1 tablet Per NG tube Daily docusate sodium AND sennosides, polyethylene glycoL (MIRALAX) oral powder, potassium chloride in water OR potassium chloride in water OR potassium chloride in water, labetaloL, acetaminophen, sodium chloride, fentaNYL (PF), potassium chloride ER OR potassium chloride ER, glucose 40%oral geL OR dextrose OR glucagon, bisacodyL, bacitracin zinc-polymyxin B, gelatin compressed, thrombin (Bovine) Vitals: Vital Sign Ranges: Last value Range last 24 hrs Temperature Temp: 37.2 ??C (99 ??F) Temp: [37.1 ??C (98.7 ??F)-37.3 ??C (99.1 ??F)] Heart Rate Heart Rate: 91 Heart Rate: [72-109] Blood Pressure BP: 132/90 BP: (93-196)/(52-110) Respiratory Rate Resp: 27 Resp: [12-31] SpO2 SpO2: 96 % SpO2: [88 %-100 %] Art BP BP (Arterial Line): 134/56 BP (Arterial Line): -- Intake/Output: I/O 09/24 P.O. 0 0 0 I.V. (mL/kg/hr) 1258.8 (0.6) 1360.8 (0.6) 529.3 (0.2) 60 (0.1) Blood Other 0 0 0 NG/GT 605.7 1225 2140 160 IV Piggyback 100 150 200 50 Irrigation 940 110 90 60 Total Intake(mL/kg) 2904.5 (32.6) 2845.8 (31.9) 2959.3 (33.2) 330 (3.7) Urine (mL/kg/hr) 650 (0.3) 3500 (1.6) 4385 (2) 40 (0.1) Emesis/NG output 0 0 0 0 Other 60 0 0 Stool 0 200 1025 50 Blood 0 Urine/Stool Mixed 0 Total Output(mL/kg) 710 (8) 3700 (41.5) 5410 (60.7) 90 (1) Net +2194.5 -854.2 -2450.7 +240 Unmeasured Urine Occurrence 2 x 0 x 0 x Stool Occurrence 1 x 5 x 3 x Emesis Occurrence 0 x 0 x 0 x 0 x Lines/Drains/Airways: Percutaneous Central Line 09/17/24 1405 Triple Lumen subclavian vein, right (Active) Indication/Daily Review of Necessity Medications known to cause phlebitis (vasopressors, concentrated electrolytes, TPN, chemotherapy) 09/27/24 08 Site Preparation/Maintenance dressing: dry and intact 09/27/241199 Dressing change due 10/03/24 09/27/24799 Securement catheter securement device, secured with 09/27/24799 Distal Patency/Maintenance flushed without difficulty 09/27/24 1200 Medial Patency/Maintenance flushed without difficulty 09/27/241199 Proximal Patency/Maintenance flushed without difficulty 09/27/24 1200 Phlebitis 0-->no symptoms 09/27/24 1200 Infiltration 0-->no symptoms 09/27/24 1200 Site Signs/Symptoms no redness;no swelling;no warmth;no pain;no palpable cord;no streak formation;no drainage 09/26/241999 Rectal Tube 09/26/24 0245 fecal management system (Active) Balloon Inflation Volume (mL) 45 09/27/24799 Reposition balloon deflated;rectal tube advanced slightly 09/26/24743 Outcome comfort enhanced 09/27/24799 Tolerance no signs/symptoms of discomfort 09/27/24799 Irrigation/Flush (mL) 0 (mL) 09/27/24799 Stool Output (mL) 50 09/27/24799 Net Rectal Tube Output (mL) 50 09/27/24799 Urethral Catheter 09/16/24 latex 14 5 10 (Active) Indication/Necessity Acute urinary retention or obstruction;Q1-2hr UOP in ICU patient without alternative 09/27/24799 Securement secured to upper leg with adhesive device 09/27/24799 Maintenance Closed system maintained;Catheter secured to leg;Urine flow is unobstructed;Collection bag maintained below the bladder;Collection bag emptied when half full or at least every 4 hours using a separate container for this patient, drainage spigot not allowed to touch container;Hand hygiene performed before and after touching catheter and collection system 09/27/24799 Foreskin not applicable 09/23/241999 Tolerance no signs/symptoms of discomfort 09/26/241999 Urine Characteristics yellow 09/27/24799 Irrigation/Flush (mL) 0 (mL) 09/27/24599 Urine Output (mL) 40 09/27/24799 Net Catheter Output (mL) 400 (mL) 09/27/24599 Naso/Oral Tube 09/18/24 1229 small bore;nonweighted right nostril (Active) Placement Check Methods distal length tube measured 09/26/241999 Catheter Depth (cm) 62 cm 09/27/24799 Securement bridled 09/27/24799 Insertion Site Appearance no redness;no warmth;no tenderness;no skin breakdown;no drainage Tolerance no adverse signs/symptoms 09/27/24799 Clamp Status/Tolerance unclamped 09/27/24799 Flush/Irrigation water 09/27/24799 Tubing Change 11/01/24 10/30/24 0800 Irrigation/Flush (mL) 30 (mL) 09/27/24 1200 Tube Intake (mL) 160 09/27/24 08 General Output (mL) 0 09/26/24 0400 Net Naso/Oral Volume (mL) 30 (mL) 09/27/24 1200 Incision 09/16/24 Right parietal region other (see comments) (Active) Incision WDL 09/27/24 08 Dressing Appearance dry;intact 09/27/24 08 Appearance stacey intact;no drainage;no redness;no swelling;no tenderness;no warmth 09/26/24 08 Drainage Characteristics/Odor serosanguineous 09/21/24 0730 Drainage Amount none 09/26/24799 Dressing open to air 09/27/24 08 Output (mL) 0 09/26/24 08 Labs: No results found for: PHART, PO2ART, TLR5XIU Recent Labs 09/27/24 0138 WBC 39.03* RBC 4.12 HGB 12.5 HCT 37.4 MCV 90.8 MCH 30.3 MCHC 33.4 PLATELET 510* RDWCV 13.3 Recent Labs 09/27/24 0138 NA 139 K 3.8 CL 103 CO2 25 BUN 17 CREATININE 0.51* GLUCOSE 148 WBC 40 from 31, 6% bandemia LFTs wnl BCX ngtd SCX 100k staph, sensitivities pending Imaging: CT reviewed by me - SDH, ICH unchanged Physical Exam: NAD, moderate generalized psychomotor slowing, c/o R sided CABA, denies SOB, AP L facial droop FC RUE RLE CTAB RRR no mgr Soft NABS NT/ND ASSESSMENT & PLAN: 74F with ICH Neuro: ICH s/p heparin IVP for watchman procedure CV: s/p watchman procedure Pulm: no acute, con't suctioning prn FEN/Renal: - NPO per CUTTER AND EDGE TRIMMER - TF - hill for UOP monitoring (minimal recently although no lab evidence of MERLE) GI: diarrhea/con't rectal tube ID: zosyn started 09/25 for possible aspiration PNA - f/u c. Diff Endo: ISS with good control Heme: no acute PPx: SQH Tubes/Lines/Drains: pivs Code Status: Attempt Cardiopulmonary Resuscitation - Inpatient Dispo: although rising WBC somewhat concerning, no evidence of developing sepsis physiology, improving airway clearance and alertness / unlikely to require reintubation, will discuss with neurology for possible SDU transfer //////////////////////////////////////////////////////////////////////////////// //// Attestation: * Kymberly Baptiste, PT - 09/27/2024 10:58 AM EST Physical Therapy Note Treatment Number PT: 2 Patient profile: Lucero Bruno ( ) is a 74 y.o. 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 Interval History: extubated, following commands on R side Social History: per previous hospitalization 04/2024 Patient reports she lives alone with her two cats in a 2 level home with a basement. Patient reports her needs are met on the main level, including laundry. Her bathroom includes a tub shower with grab bars. Residence has 2 small [facility]. At her baseline, patient is independent in all aspects. 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 Patient reports she enjoys her 1/2 acre of flower beds. Falls: None Precautions/Special Considerations: at risk to fall, SBP<140, MAP>65, RUE restraint Lines: PIV, tele, central line, hill catheter, DHT, flexiseal, nasal cannula Activity Orders: AAT Diet: NPO Mobility and Positioning Recommendations: [facility] with [facility]. Please encourage up to chair for meal times as able. Subjective: no vocal output. Can communicate yes/no with thumbs up and head shaking Objective: Patient seen for physical therapy and demonstrated the following: Pain: No complaints or nonverbal signs of pain Vital Signs: At Rest SpO2 (3L NC) 95% BP 141/106 HR 91bpm Cognition/Vision: alert, follows commands in RUE/RLE, answers yes/no with gestures. Appears delirious, oriented to self only. Bed Mobility: Supine to Sit: max assist x2 with HOB elevated Sit to Supine: max assist x2 Transfers: Sit to Stand: NA Stand to Sit: NA Bed to Chair: NA; will require mech lift Gait: NA Stairs: NA Balance: Sitting Static: poor, requires max assist for seated balance, impaired righting reactions, poor head/neck control Sitting Dynamic: poor Standing Static: NA Standing Dynamic / Gait: NA Education: Pt educated on bed mobility, transfers, seated balance, role of therapy, and importance of mobility. She will require ongoing reinforcement. Pt left supine in bed, with all needs met, with call ruiz in reach, and with bed alarm active following visit. Assessment: Lucero Bruno was seen today for physical therapy treatment session for continuation of POC. Session today focused on seated balance. Pt now extubated to 3L, and vital signs remained stable throughout. She was able to follow commands on the R and responded to yes/no questions, but remains confused and with limited tolerance. Pt demo's significant impairments in endurance, strength, balance, and posture, and will benefit from d/c to SNF once medically ready. Pt will benefit from ongoing therapeutic interventions to achieve therapy goals. Discharge Recommendations: Based on the current findings, Anticipated Discharge Disposition (PT): jail facility when medically ready for hospital discharge. Discharge recommendation is based on the patient's current physical impairments, prior functional status, potential to return to prior level of function, patient motivation, reported home support, potential for functional gains, current level of endurance, reported home environment and anticipated trajectory of progress and may change based on patient progress during this hospitalization. Consult Recommendations: No other consults recommended at this time. Equipment needs: Anticipated Equipment Needs at Discharge (PT): to be determined Goals: To be achieved by 10/13/24: ONGOING Pt. to demonstrate knowledge of safety limitations and precautions and will appropriately request assistance for functional activities and to mobilize. Pt. to perform bed mobility with mod A. Pt will maintain seated balance at EOB with min A x5 mins. Pt. Will tolerate mech lift OOB to recliner chair. Family or caregiver to demonstrate understanding of therapeutic interventions to support the care of the patient. Pt will tolerate progression towards upright with stable vital signs. Plan: Therapy Frequency (PT): 2-3 times/wk for therapy interventions as outlined in initial evaluation. Patient agrees with plan as stated. Time IN / OUT: 6812-5718 Total Minutes, Physical Therapy: 22 Billing Code: TEF1 Kymberly Baptiste PT, DPT, NCS Pager: [phone] Physical Therapy Inpatient Rehabilitation Department * Ihsan Winston RCP - 09/26/2024 6:14 PM EST Illness Severity Stable Respiratory Modalities: O2 Device: Nasal cannula 5 L/min Patient Summary Admitted: 09/16/2024 Age: 74 y.o. Code Status: FULL. HPI: Post-op (Watchman procedure) ICH, intubation for airway protection and R craniotomy evacuation PMHx: prior R occipital ICH, a-fib Events w/ date: 09/21 - Failed extubation, airway edema/swelling, stridor 09/23: Cuff test, PEEP 18 for audible cuff leak 09/25: Cuff leak noted. 09/26: Pt extubated to 5L NC. Pre extubation cuff leak noted. Post extubation weak cough and phonation. No stridor. Increased oral secretions * Mariola Calixto MD - 09/26/2024 8:56 AM EST ICU PROGRESS NOTE DOA: 09/16/2024 Room: 333/[facility] Length of Stay: 10 ICU Length of Stay 9d 11h Lucero Bruno ( ) is a 74 y.o. 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 Over night events: hypotensive episode, delvis started, 1L, resolved, wbc to 30, multiple stools Medications: Scheduled Meds: calcium gluconate 1 g Intravenous Q1H amLODIPine 5 mg Per NG tube Daily piperacillin-tazobactam 3.375 g Intravenous Q8H insulin lispro 0-3 Units Subcutaneous Q4H CARLY ipratropium-albuteroL 3 mL Nebulization Q4H chlorhexidine 15 mL Oral BID famotidine 20 mg Per NG tube BID heparin (porcine) 5,000 Units Subcutaneous Q8H CARLY insulin lispro 2-12 Units Subcutaneous Q4H CARLY dilTIAZem 90 mg Per NG tube Q6H CARLY multivitamin with minerals 1 tablet Per NG tube Daily Continuous Infusions: PHENYLephrine Stopped (09/26/24 0501) tube feeding diet Stopped (09/26/24 0400) dexmedeTOMIDine Stopped (09/26/24 000) PRN Meds:.docusate sodium AND sennosides, polyethylene glycoL (MIRALAX) oral powder, potassium chloride in water OR potassium chloride in water OR potassium chloride in water, acetaminophen, sodium chloride, fentaNYL (PF), potassium chloride ER OR potassium chloride ER, labetaloL, glucose 40% oral geL OR dextrose OR glucagon, bisacodyL, bacitracin zinc-polymyxin B, gelatincompressed, thrombin (Bovine) Vitals: Temp: [36.2 ??C (97.2 ??F)-37.4 ??C (99.3 ??F)] Heart Rate: [45-109] Resp: [9-29] BP: (73-157)/(32-101) SpO2: [90 %-99 %] Heart Rate from SpO2: [45 bpm-109 bpm] Ventilator Settings: PS 5/5 30% Physical Exam: Cons: NAD Cardiac: RRR S1S2 Pulm: CTAB, no W/R/R GI: S/NT/ND, BS+ MSK: WWP, no C/C/E Neuro Exam: MS - awake alert, interactive Inability to track BUE purposeful, FC on R WD LLE, LUE I/Os: Intake/Output Summary (Last 24 hours) at 09/26/2024 0856 Last data filed at 09/26/2024 0820 Gross per 24 hour Intake 2648.69 ml Output 2635 ml Net 13.69 ml Labs: Last 3 wbc, hgb, hct plt Recent Labs 09/26/24 0031 09/25/24 0429 09/24/24 0500 WBC 30.94* 27.24* 19.25* HGB 10.7* 10.5* 9.7* HCT 32.2* 31.9* 30.6* PLATELET 434* 379* 342 Last 3 Lytes Recent Labs 09/26/24 0635 09/26/24 0031 09/25/24 042 NA 137 137 138 K 3.7 3.7 4.1 CL 104 104 102 CO2 23 23 24 BUN 23* 26* 28* CREATININE 0.53* 0.56* 0.49* Last 3 LFTs Recent Labs 09/26/24 0635 09/23/24 0756 05/08/24 0121 AST 28 18 15 ALT 72* 56* 14 ALKPHOS 81 80 92 BILITOT 0.4 0.3 0.4 BILIDIR <0.2 <0.2 0.1 Last Ca, Mg, Phos Recent Labs 09/26/24 0635 09/26/24 0031 CALCIUM 8.1* 7.9* PHOS 3.3 3.1 MAGNESIUM -- 0.78 Last 3 Coags No results for input(s): PT, INR, PTT in the last 168 hours. Last 3 TFT Recent Labs 05/06/24 0548 TSH 0.99 Last 3 Lipids Recent Labs 09/20/24 0009 09/17/24 0039 09/16/24 1707 05/06/24 0548 CHLPL -- 203 -- 135 HDL -- 45 -- 46 LDLCHOL -- -- -- 69 LDLDIRECT -- 133 -- -- TRIG 95 147 174 101 Last 3 HgbA1C Recent Labs 09/17/24 0039 05/06/24 0548 HA1C 6.1* 6.0* Labs reviewed by me - WBC stable, H/H stable, Na normal, hypocalcemia Imaging/Studies: Labs - I reviewed: increasingly elevated wbc, normal lactate, stable BUN/creat Assessment/Plan: Neuro - R occipitoparietal ICH with cerebral edema, mass affect and brain compression s/p R craniotomy. 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 - q2 neurochecks - SBP < 160 - Analgesia: tylenol, PRN fentanyl - Sedation: precedex low doses since Friday, 09/18 - CTH/CT A/P ?abscess CV - Rate controlled afib s/p watchman device - BP as above - c/w diltiazem for rate control - if MAP sustained < 65, IVF, consider pressors -amlodipine, cardizem Pulm - Total ETT days 9 Reintubated, doing well, continue steroids (started 09/21, 2:30 pm) dexamethasone 8Q8 -CTA to evaluate for PE GI - Dysphagias - TF via OGT - hold for possible extubation - maintain bowel reg Last Bowel Movement: 09/26/24 - GI ppx with H2B FEN/ - - Goal eunatremia, HTS if neurologically deteriorates - ICU potassium repletion protocol - Hill for strict I/Os Heme - - goal Hgb > 7, INR < 1.5, Platelets > 100k - SCDs, chemoppx contraindicated Endo - - goal glucose 120-180 --> Accuchecks and ISS ID - Afebrile, reactive leukocytosis Respiratory - strep anginosus Zosyn started 09/24, for wbc, increased O2 requirement -UA with yeast - no other source of yeast, hold on treatment -re-send UA, pull hill - acetaminophen PRN -appreciate ID consult re: zosyn vs ceftriaxone for s. anginosus Core: Code status: FULL Dispo - ICU //////////////////////////////////////////////////////////////////////////////// //////////////////// /////////////////////////////////////////////////Attestation: IS PATIENT CRITICALLY ILL? Is there a high potential of sudden, clinically significant, or life threatening deterioration? Yes Is there a need for direct personal assessment and management to treat/prevent multiple vital organfailure/deterioration? Yes I personally performed 40 minutes of aggregate critical care time exclusive of procedures and teaching. This includes time spent during direct patient evaluation and reassessment, interpreting diagnostic tests, directing life and/or organ supporting interventions and documentation on the unit. Mariola Calixto MD 09/26/2024 8:56 AM * Brianne Kinney MD - 09/26/2024 7:40 AM EST [facility] [place] NEUROSURGERY PROGRESS NOTE ID: Lucero Bruno 74 y.o. female : 1950 LOS: 10 Neurosurgical Procedures this Admission: 09/16/24, Dr. Espinal: R craniotomy for IPH evacuation INTERVAL Hx: -KARL -On dex for airway, still intubated -On zosyn for PNA MEDICATIONS: Scheduled Meds: calcium gluconate 1 g Intravenous Q1H amLODIPine 5 mg Per NG tube Daily piperacillin-tazobactam 3.375 g Intravenous Q8H insulin lispro 0-3 Units Subcutaneous Q4H CARLY ipratropium-albuteroL 3 mL Nebulization Q4H chlorhexidine 15 mL Oral BID famotidine 20 mg Per NG tube BID heparin (porcine) 5,000 Units Subcutaneous Q8H CARLY insulin lispro 2-12 Units Subcutaneous Q4H CARLY dilTIAZem 90 mg Per NG tube Q6H CARLY multivitamin with minerals 1 tablet Per NG tube Daily Continuous Infusions: PHENYLephrine Stopped (09/26/24 0501) tube feeding diet Stopped (09/26/24 0400) dexmedeTOMIDine Stopped (09/26/24 0009) PRN: docusate sodium, 100 mg, BID PRN And sennosides, 17.6 mg, BID PRN polyethylene glycoL (MIRALAX) oral powder, 17 g, Daily PRN acetaminophen, 975 mg, Q6H PRN sodium chloride, 4 mL, Q6H PRN fentaNYL (PF), 25 mcg, Q30 Min PRN potassium chloride ER, 40 mEq, Q4H PRN Or potassium chloride ER, 20 mEq, Q4H PRN labetaloL, 10-20 mg, Q2H PRN glucose 40% oral geL, 15-30 g of glucose, Q15 Min PRN Or dextrose, 250 mL, Q15 Min PRN Or glucagon, 1 mg, Q15 Min PRN bisacodyL, 10 mg, Daily PRN bacitracin zinc-polymyxin B, , PRN gelatin compressed, , PRN thrombin (Bovine), , PRN EXAM: Temp: [36.2 ??C (97.2 ??F)-37.4 ??C (99.3 ??F)] Heart Rate: [45-109] Resp: [9-29] BP: (73-157)/(32-101) SpO2: [90 %-99 %] Heart Rate from SpO2: [45 bpm-97 bpm] I/O: Intake/Output Summary (Last 24 hours) at 09/26/2024 0740 Last data filed at 09/26/2024 0600 Gross per 24 hour Intake 2845.81 ml Output 3700 ml Net -854.19 ml Drains: AUBREY out 09/21 GEN: Intubated NEURO: A/ox3 with yes/no questions via thumbs up/thumbs down (name/year/place) R pupil 3mm, reactive L pupil 4mm R gaze preference, does not come to midline MOTOR: RUE: FC, thumbs up LUE: withdraws to noxious stimuli RLE: FC, wiggles toes LLE: flicker wiggles toes to command L hemianesthesia Incision CDI - stacey LABS: Recent Labs 09/26/243009/25/2442809/24/24 0500 WBC 30.94* 27.24* 19.25* HGB 10.7* 10.5* 9.7* PLATELET 434* 379* 342 Recent Labs 09/26/24 0635 09/26/243009/25/24428 NA 137 137 138 K 3.7 3.7 4.1 CL 104 104 102 CO2 23 23 24 BUN 23* 26* 28* CREATININE 0.53* 0.56* 0.49* No results for input(s): PT, INR in the last 72 hours. IMAGING: Results for orders placed or performed during the hospital encounter of 09/16/24 CT Head wo Contrast (Generic) (Exam End: 09/16/2024 5:26 PM) Result Value WORKSTATION ID [id number] Impression Interval expansion of now large right-sided temporal occipital intraparenchymal hemorrhage with significant mass effect resulting in 1 cm leftward midline shift. Per chart review, this patient was seen by neurosurgery and taken emergently to the OR. I have personally reviewed the image(s) and the resident's interpretation and agree with the findings, Lana Reinoso at 09/16/2024 6:01 PM Thank you for letting us participate in the care of this patient. If you are a health care provider and have any questions regarding this report, please contact the number below. For patients who have questions please contact the health ocular care technician that requested your imaging first. Electronically signed by: Lana Reinoso [facility] ([phone]), at 09/16/2024 6:[address] Head wo Contrast (Generic) (Exam End: 09/16/2024 11:21 PM) Result Value WORKSTATION ID [id number] Impression CT head: 1. Interval craniotomy with residual or recurrent hemorrhage right temporal and parietal lobe. 2. New hemorrhage right [...] in the care of this patient. If you are a health care provider and have any questions regarding this report, please contact the number below. For patients who have questions please contact the health ocular care technician that requested your imaging first. Electronically signed by: Armando Pan MD, [facility] ([phone]), at 09/17/2024 1:[address] Venogram Brain (Exam End: 09/16/2024 11:21 PM) Result Value WORKSTATION ID [id number] Impression CT head: 1. Interval craniotomy with residual or recurrent hemorrhage right temporal and parietal lobe. 2. New hemorrhage right [...] in the care of this patient. If you are a health care provider and have any questions regarding this report, please contact the number below. For patients who have questions please contact the health ocular care technician that requested your imaging first. Electronically signed by: Armando Pan MD, [facility] ([phone]), at 09/17/2024 1:42 AM XR Chest One View (Exam End: 09/16/2024 11:00 PM) Result Value WORKSTATION ID [id number] Impression Satisfactorily positioned enteric and endotracheal tubes. Left lower lobe atelectasis versus pneumonia. Thank you for letting us participate in the care of this patient. If you are a health care provider and have any questions regarding this report, please contact the number below. For patients who have questions please contact the health ocular care technician that requested your imaging first. Electronically signed by: Pamela Beard MD, [facility] ([phone]), at 09/17/2024 12:09 AM XR Abdomen 1 view (Generic) (Exam End: 09/16/2024 11:00 PM) Result Value WORKSTATION ID [id number] Impression Satisfactorily positioned enteric and endotracheal tubes. Left lower lobe atelectasis versus pneumonia. Thank you for letting us participate in the care of this patient. If you are a health care provider and have any questions regarding this report, please contact the number below. For patients who have questions please contact the health ocular care technician that requested your imaging first. Electronically signed by: Pamela Beard MD, [facility] ([phone]), at 09/17/2024 12:[address] Head wo Contrast (Generic) (Exam End: 09/17/2024 4:51 AM) Result Value WORKSTATION ID [id number] Impression Increased size and density of dominant right parietal hematoma, and of hemorrhage extending medially into the basal ganglia. Foci of thalamocapsular hemorrhage on the right are stable. No evidence of progressive intraventricular hemorrhage or ventricular dilation. No definitive increase in leftward midline shift or herniation. Thank you for letting us participate in the care of this patient. If you are a health care provider and have any questions regarding this report, please contact the number below. For patients who have questions please contact the health ocular care technician that requested your imaging first. Electronically signed by: Elvin Bolden DO, [facility] ([phone]), at 09/17/2024 8:38 AM XR Chest One View (Exam End: 09/17/2024 2:13 PM) Result Value WORKSTATION ID [id number] Impression 1. No focal opacity in lung 2. Pulmonary edema, progressed since last examination. 3. Tip of ET tube is 23 mm superior cuff to jonathan. Consider adjustment. 4. Sidehole and tip of NG tube is below the diaphragm. Thank you for letting us participate in the care of this patient. If you are a health care provider and have any questions regarding this report, please contact the number below. For patients who have questions please contact the health ocular care technician that requested your imaging first. Electronically signed by: Zoey Zabala MD, [facility] ([phone]), at 09/17/2024 2:43 PM XR Chest One View (Exam End: 09/18/2024 8:43 AM) Result Value WORKSTATION ID [id number] Impression Tubes and lines as described. Blunting of the left costophrenic angle suggests tiny layering left effusion with associated left basilar consolidation/atelectasis Thank you for letting us participate in the care of this patient. If you are a health care provider and have any questions regarding this report, please contact the number below. For patients who have questions please contact the health ocular care technician that requested your imaging first. Abdomen 1 view (Generic) (Exam End: 09/18/2024 12:31 PM) Result Value WORKSTATION ID [id number] Impression Dobbhoff tube tip along the greater curve of the stomach. Thank you for letting us participate in the care of this patient. If you are a health care provider and have any questions regarding this report, please contact the number below. For patients who have questions please contact the health ocular care technician that requested your imaging first. Brain wwo Contrast (Generic) (Exam End: 09/19/2024 5:43 PM) Result Value WORKSTATION ID [id number] Impression Unchanged size of large right cerebral hemisphere ICH status post partial evacuation. Numerous small foci of decreased acute infarction both along and separate from the site of hemorrhage. These foci are present in both cerebral hemispheres and have a pattern most consistent with embolic infarction. No evidence of [employer] malignancy Thank you for letting us participate in the care of this patient. If you are a health care provider and have any questions regarding this report, please contact the number below. For patients who have questions please contact the health ocular care technician that requested your imaging first. Electronically signed by: Rios Swartz MD, [facility] ([phone]), at 09/20/2024 8:[address] Head wo Contrast (Generic) (Exam End: 09/21/2024 3:50 AM) Result Value WORKSTATION ID [id number] Impression Stable hemorrhage right temporal, parietal, right posterior limb internal capsule and right thalamus. Mild progression of vasogenic edema adjacent to hemorrhage. Similar pattern and extent of local and generalized mass effect with stable subfalcine herniation and uncal herniation. Thank you for letting us participate in the care of this patient. If you are a health care provider and have any questions regarding this report, please contact the number below. For patients who have questions please contact the health ocular care technician that requested your imaging first. Electronically signed by: Armando Pan MD, [facility] ([phone]), at 09/21/2024 4:55 AM XR Abdomen 1 view (Generic) (Exam End: 09/21/2024 2:01 PM) Result Value WORKSTATION ID [id number] Impression Dobbhoff tube and enteric tube sidehole and tip is projecting over the expected location of the stomach. I have personally reviewed the image(s) and the resident's interpretation and agree with the findings, Shraddha Cox MD at 09/21/2024 3:40 PM Thank you for letting us participate in the care of this patient. If you are a health care provider and have any questions regarding this report, please contact the number below. For patients who have questions please contact the health ocular care technician that requested your imaging first. Electronically signed by: Shraddha Cox MD, [facility] ([phone]), at 09/21/2024 3:40 PM XR Chest One View (Exam End: 09/21/2024 2:01 PM) Result Value WORKSTATION ID [id number] Impression ET tube with tip projecting approximately 1.4 cm above the jonathan. Recommend retracting approximately 2 cm and follow-up imaging. New left basilar atelectasis and/or small pleural effusion. Aspiration or pneumonia could also this appearance. I Sacha Shipley MD discussed the results (Impression #1) with Bonnie Vazquez on 09/21/2024 4:42 PM and verified that the results were understood. I have personally reviewed the image(s) and the resident's interpretation and agree with the findings, Octavio Scott MD at 09/21/2024 5:09 PM Thank you for letting us participate in the care of this patient. If you are a health care provider and have any questions regarding this report, please contact the number below. For patients who have questions please contact the health ocular care technician that requested your imaging first. Electronically signed by: Octavio Scott MD, [facility] ([phone]), at 09/21/2024 5:[address] Head wo Contrast (Generic) (Exam End: 09/22/2024 4:02 AM) Result Value WORKSTATION ID [id number] Impression Stable head CT status post removal of subcutaneous drain. No new or enlarging hemorrhage. Stable pattern of mass effect Thank you for letting us participate in the care of this patient. If you are a health care provider and have any questions regarding this report, please contact the number below. For patients who have questions please contact the health ocular care technician that requested your imaging first. Electronically signed by: Armando Pan MD, [facility] ([phone]), at 09/22/2024 4:31 AM Assessment: 74 y.o. female with PMHx notable for Afib (taking ASA, previously on apixaban-stopped taking after IPH in April 2024), CHRISTOPHER, HLD, BMI of 36, prior IPH 04/2024 who presented to hospital 09/16/24 for placement of Watchman with cardiology. She developed headaches and nausea post op and CT scan noted large R [id number] IPH. Now s/p R craniotomy for IPH evacuation. Repeated CTH wo contrast post-op overnight into 09/17 showing increased hemorrhage on R but exam remains stable. Will defer further neurosurgical intervention at this time and continue to closely monitor exam. 09/18 AM noted L eye down, possible out. MRI Brain wwo on 09/19 showing small scattered infarcts c/w embolic infarcts not that would explain possible palsy. Attempt to extubate on 09/21 followed by respiratory distress requiring re- intubation. Wean vent and sedation as tolerated. Plan: -Ok for Q2h neuro checks, while intubated -MRI Brain wwo done -SBP 90-160 -DVT ppx with SCDs, SQH -Hold other antiplatelets/anticoagulants -Na goal eunatremia -Extubation per ICU -Rest of care per primary For questions please call NSGY pager [phone] Brianne Kinney MD Clinical Documentation Improvement: Active Hospital Problems Diagnosis Presence of Watchman left atrial appendage closure device Resolved Hospital Problems No resolved problems to display. * Daniel Griffith RCP - 09/26/2024 6:08 AM EST Vent Settings: Ventilator Mode: PS/CPAP PEEP Set: 5 FiO2: 21 % PSV: 5 Ventilator Measurements: Resp: 25 Vt Spontaneous: 428 Ve: 8.7 SpO2: 91 % EtCO2: 27 mmHg Airway: 7.5 @ 22 cm at the Teeth. Skin Integrity: WDL Daniel Griffith RCP * Ihsan Winston RCP - 09/25/2024 4:07 PM EDT AMV Protocol: Yes SBT Protocol: Yes Vent Settings: Ventilator Mode: PS/CPAP PEEP Set: 5 FiO2: 25 % PSV: 5 Ventilator Measurements: Resp: 22 Vt Spontaneous: 428 Ve: 8.7 SpO2: 96 % EtCO2: 27 mmHg Airway: 7.5 @ 22 cm at the Teeth. Skin Integrity: WDL Illness Severity Stable Respiratory Modalities: PS/CPAP 5/+5, 30 % Airway: 7.5 @ 22 Teeth Patient Summary Admitted: 09/16/2024 Age: 74 y.o. Code Status: FULL. HPI: Post-op (Watchman procedure) ICH, intubation for airway protection and R craniotomy evacuation PMHx: prior R occipital ICH, a-fib Events w/ date: 09/21 - Failed extubation, airway edema/swelling, stridor 09/23: Cuff test, PEEP 18 for audible cuff leak 09/25: Received on PSV 5/5 30%. Tolerated titration to 25%. Cuff leak noted. Pt tolerating IPV. Small amount of thick, white/yellow secretions noted. * Brianne Kinney MD - 09/25/2024 3:30 PM EDT [facility] [place] NEUROSURGERY PROGRESS NOTE ID: Lucero Bruno 74 y.o. female : 1950 LOS: 9 Neurosurgical Procedures this Admission: 09/16/24, Dr. Espinal: R craniotomy for IPH evacuation INTERVAL Hx: -KARL -Neuro stable -On Zosyn for PNA MEDICATIONS: Scheduled Meds: amLODIPine 5 mg Per NG tube Daily polyethylene glycoL (MIRALAX) oral powder 17 g Per NG tube Daily piperacillin-tazobactam 3.375 g Intravenous Q8H insulin lispro 0-3 Units Subcutaneous Q4H CARLY ipratropium-albuteroL 3 mL Nebulization Q4H chlorhexidine 15 mL Oral BID famotidine 20 mg Per NG tube BID heparin (porcine) 5,000 Units Subcutaneous Q8H [facility] insulin lispro 2-12 Units Subcutaneous Q4H [facility] dilTIAZem 90 mg Per NG tube Q6H [facility] multivitamin with minerals 1 tablet Per NG tube Daily docusate sodium 100 mg Per NG tube BID And sennosides 17.6 mg Per NG tube BID Continuous Infusions: tube feeding diet 60 mL/hr at 09/25/24 1515 dexmedeTOMIDine 0.8 mcg/kg/hr (09/25/24 1433) PRN: acetaminophen, 975 mg, Q6H PRN sodium chloride, 4 mL, Q6H PRN fentaNYL (PF), 25 mcg, Q30 Min PRN potassium chloride ER, 40 mEq, Q4H PRN Or potassium chloride ER, 20 mEq, Q4H PRN labetaloL, 10-20 mg, Q2H PRN glucose 40% oral geL, 15-30 g of glucose, Q15 Min PRN Or dextrose, 250 mL, Q15 Min PRN Or glucagon, 1 mg, Q15 Min PRN bisacodyL, 10 mg, Daily PRN bacitracin zinc-polymyxin B, , PRN gelatin compressed, , PRN thrombin (Bovine), , PRN EXAM: Temp: [36.8 ??C (98.2 ??F)-37.8 ??C (100 ??F)] Heart Rate: [61-84] Resp: [18-24] BP: (97-124)/(48-99) SpO2: [93 %-96 %] Heart Rate from SpO2: [61 bpm-84 bpm] I/O: Intake/Output Summary (Last 24 hours) at 09/25/2024 1530 Last data filed at 09/25/2024 1400 Gross per 24 hour Intake 2187.42 ml Output 2650 ml Net -462.58 ml Drains: AUBREY out 09/21 GEN: Intubated NEURO: A/ox3 with yes/no questions via thumbs up/thumbs down (name/year/place) R pupil 3mm, reactive L eye with downward gaze, reactive, pupil 4mm MOTOR: RUE: FC, thumbs up LUE: withdraws to noxious stimuli (baseline since pre-op) RLE: FC, wiggles toes LLE: flicker wiggles toes to command L hemianesthesia Incision CDI - stacey LABS: Recent Labs 09/25/2442809/24/24 0500 09/23/24 0101 WBC 27.24* 19.25* 19.97* HGB 10.5* 9.7* 10.0* PLATELET 379* 342 293 Recent Labs 09/25/2442809/24/24 0500 09/23/24 1623 09/23/24 0756 09/23/24 0101 NA 138 138 -- -- 138 K 4.1 4.2 4.3 < > 3.9 CL 102 102 -- -- 103 CO2 24 26 -- -- 25 BUN 28* 28* -- -- 26* CREATININE 0.49* 0.51* -- -- 0.47* < > = values in this interval not displayed. No results for input(s): PT, INR in the last 72 hours. IMAGING: Results for orders placed or performed during the hospital encounter of 09/16/24 CT Head wo Contrast (Generic) (Exam End: 09/16/2024 5:26 PM) Result Value WORKSTATION ID [id number] Impression Interval expansion of now large right-sided temporal occipital intraparenchymal hemorrhage with significant mass effect resulting in 1 cm leftward midline shift. Per chart review, this patient was seen by neurosurgery and taken emergently to the OR. I have personally reviewed the image(s) and the resident's interpretation and agree with the findings, Lana Reinoso at 09/16/2024 6:01 PM Thank you for letting us participate in the care of this patient. If you are a health care provider and have any questions regarding this report, please contact the number below. For patients who have questions please contact the health ocular care technician that requested your imaging first. Electronically signed by: Lana Reinoso [facility] ([phone]), at 09/16/2024 6:[address] Head wo Contrast (Generic) (Exam End: 09/16/2024 11:21 PM) Result Value WORKSTATION ID [id number] Impression CT head: 1. Interval craniotomy with residual or recurrent hemorrhage right temporal and parietal lobe. 2. New hemorrhage right [...] in the care of this patient. If you are a health care provider and have any questions regarding this report, please contact the number below. For patients who have questions please contact the health ocular care technician that requested your imaging first. Electronically signed by: Armando Pan MD, [facility] ([phone]), at 09/17/2024 1:[address] Venogram Brain (Exam End: 09/16/2024 11:21 PM) Result Value WORKSTATION ID [id number] Impression CT head: 1. Interval craniotomy with residual or recurrent hemorrhage right temporal and parietal lobe. 2. New hemorrhage right [...] in the care of this patient. If you are a health care provider and have any questions regarding this report, please contact the number below. For patients who have questions please contact the health ocular care technician that requested your imaging first. Electronically signed by: Armando Pan MD, [facility] ([phone]), at 09/17/2024 1:42 AM XR Chest One View (Exam End: 09/16/2024 11:00 PM) Result Value WORKSTATION ID [id number] Impression Satisfactorily positioned enteric and endotracheal tubes. Left lower lobe atelectasis versus pneumonia. Thank you for letting us participate in the care of this patient. If you are a health care provider and have any questions regarding this report, please contact the number below. For patients who have questions please contact the health ocular care technician that requested your imaging first. Electronically signed by: Pamela Beard MD, [facility] ([phone]), at 09/17/2024 12:09 AM XR Abdomen 1 view (Generic) (Exam End: 09/16/2024 11:00 PM) Result Value WORKSTATION ID [id number] Impression Satisfactorily positioned enteric and endotracheal tubes. Left lower lobe atelectasis versus pneumonia. Thank you for letting us participate in the care of this patient. If you are a health care provider and have any questions regarding this report, please contact the number below. For patients who have questions please contact the health ocular care technician that requested your imaging first. Electronically signed by: Pamela Beard MD, [facility] ([phone]), at 09/17/2024 12:[address] Head wo Contrast (Generic) (Exam End: 09/17/2024 4:51 AM) Result Value WORKSTATION ID [id number] Impression Increased size and density of dominant right parietal hematoma, and of hemorrhage extending medially into the basal ganglia. Foci of thalamocapsular hemorrhage on the right are stable. No evidence of progressive intraventricular hemorrhage or ventricular dilation. No definitive increase in leftward midline shift or herniation. Thank you for letting us participate in the care of this patient. If you are a health care provider and have any questions regarding this report, please contact the number below. For patients who have questions please contact the health ocular care technician that requested your imaging first. Electronically signed by: Elvin Bolden DO, [facility] ([phone]), at 09/17/2024 8:38 AM XR Chest One View (Exam End: 09/17/2024 2:13 PM) Result Value WORKSTATION ID [id number] Impression 1. No focal opacity in lung 2. Pulmonary edema, progressed since last examination. 3. Tip of ET tube is 23 mm superior cuff to jonathan. Consider adjustment. 4. Sidehole and tip of NG tube is below the diaphragm. Thank you for letting us participate in the care of this patient. If you are a health care provider and have any questions regarding this report, please contact the number below. For patients who have questions please contact the health ocular care technician that requested your imaging first. Electronically signed by: Zoey Zabala MD, [facility] ([phone]), at 09/17/2024 2:43 PM XR Chest One View (Exam End: 09/18/2024 8:43 AM) Result Value WORKSTATION ID [id number] Impression Tubes and lines as described. Blunting of the left costophrenic angle suggests tiny layering left effusion with associated left basilar consolidation/atelectasis Thank you for letting us participate in the care of this patient. If you are a health care provider and have any questions regarding this report, please contact the number below. For patients who have questions please contact the health ocular care technician that requested your imaging first. Abdomen 1 view (Generic) (Exam End: 09/18/2024 12:31 PM) Result Value WORKSTATION ID [id number] Impression Dobbhoff tube tip along the greater curve of the stomach. Thank you for letting us participate in the care of this patient. If you are a health care provider and have any questions regarding this report, please contact the number below. For patients who have questions please contact the health ocular care technician that requested your imaging first. Brain wwo Contrast (Generic) (Exam End: 09/19/2024 5:43 PM) Result Value WORKSTATION ID [id number] Impression Unchanged size of large right cerebral hemisphere ICH status post partial evacuation. Numerous small foci of decreased acute infarction both along and separate from the site of hemorrhage. These foci are present in both cerebral hemispheres and have a pattern most consistent with embolic infarction. No evidence of AUTOMOBILE DESIGNER malignancy Thank you for letting us participate in the care of this patient. If you are a health care provider and have any questions regarding this report, please contact the number below. For patients who have questions please contact the health ocular care technician that requested your imaging first. Electronically signed by: Rios Swartz MD, [facility] ([phone]), at 09/20/2024 8:[address] Head wo Contrast (Generic) (Exam End: 09/21/2024 3:50 AM) Result Value WORKSTATION ID [id number] Impression Stable hemorrhage right temporal, parietal, right posterior limb internal capsule and right thalamus. Mild progression of vasogenic edema adjacent to hemorrhage. Similar pattern and extent of local and generalized mass effect with stable subfalcine herniation and uncal herniation. Thank you for letting us participate in the care of this patient. If you are a health care provider and have any questions regarding this report, please contact the number below. For patients who have questions please contact the health ocular care technician that requested your imaging first. Electronically signed by: Armando Pan MD, [facility] ([phone]), at 09/21/2024 4:55 AM XR Abdomen 1 view (Generic) (Exam End: 09/21/2024 2:01 PM) Result Value WORKSTATION ID [id number] Impression Dobbhoff tube and enteric tube sidehole and tip is projecting over the expected location of the stomach. I have personally reviewed the image(s) and the resident's interpretation and agree with the findings, Shraddha Cox MD at 09/21/2024 3:40 PM Thank you for letting us participate in the care of this patient. If you are a health care provider and have any questions regarding this report, please contact the number below. For patients who have questions please contact the health ocular care technician that requested your imaging first. Electronically signed by: Shraddha Cox MD, [facility] ([phone]), at 09/21/2024 3:40 PM XR Chest One View (Exam End: 09/21/2024 2:01 PM) Result Value WORKSTATION ID [id number] Impression ET tube with tip projecting approximately 1.4 cm above the jonathan. Recommend retracting approximately 2 cm and follow-up imaging. New left basilar atelectasis and/or small pleural effusion. Aspiration or pneumonia could also this appearance. I Sacha Shipley MD discussed the results (Impression #1) with Bonnie Vazquez on 09/21/2024 4:42 PM and verified that the results were understood. I have personally reviewed the image(s) and the resident's interpretation and agree with the findings, Octavio Scott MD at 09/21/2024 5:09 PM Thank you for letting us participate in the care of this patient. If you are a health care provider and have any questions regarding this report, please contact the number below. For patients who have questions please contact the health ocular care technician that requested your imaging first. Electronically signed by: Octavio cSott MD, [facility] ([phone]), at 09/21/2024 5:[address] Head wo Contrast (Generic) (Exam End: 09/22/2024 4:02 AM) Result Value WORKSTATION ID [id number] Impression Stable head CT status post removal of subcutaneous drain. No new or enlarging hemorrhage. Stable pattern of mass effect Thank you for letting us participate in the care of this patient. If you are a health care provider and have any questions regarding this report, please contact the number below. For patients who have questions please contact the health ocular care technician that requested your imaging first. Electronically signed by: Armando Pan MD, [facility] ([phone]), at 09/22/2024 4:31 AM Assessment: 74 y.o. female with PMHx notable for Afib (taking ASA, previously on apixaban-stopped taking after IPH in April 2024), CHRISTOPHER, HLD, BMI of 36, prior IPH 04/2024 who presented to hospital 09/16/24 for placement of Watchman with cardiology. She developed headaches and nausea post op and CT scan noted large R nsmohjol-uaurjpb-tzicnemsd IPH. Now s/p R craniotomy for IPH evacuation. Repeated CTH wo contrast post-op overnight into 09/17 showing increased hemorrhage on R but exam remains stable. Will defer further neurosurgical intervention at this time and continue to closely monitor exam. 09/18 AM noted L eye down, possible out. MRI Brain wwo on 09/19 showing small scattered infarcts c/w embolic infarcts no brainstem infarcts nor any that would explain possible palsy. Attempt to extubate on 09/21 followed by respiratory distress requiring re- intubation. Wean vent and sedation as tolerated. Plan: -Wean sedation and wean to extubate as able -Ok for Q2h neuro checks, while intubated -MRI Brain wwo done -SBP 90-160 -DVT ppx with SCDs, SQH -Hold other antiplatelets/anticoagulants -Na goal eunatremia -Rest of care per primary For questions please call NSGY pager [phone] Brianne Kinney MD Clinical Documentation Improvement: Active Hospital Problems Diagnosis Presence of Watchman left atrial appendage closure device Resolved Hospital Problems No resolved problems to display. Associated attestation - Sushila Espinal MD - 09/25/2024 4:09 PM EDT I was the attending physician supervising the resident in the above care. I agree with the history,physical exam, assessment, and plan. Sushila Espinal MD PhD Game Warden Section of Neurosurgery Department of Surgery [facility] [email or web address] Mariola Calixto MD - 09/25/2024 10:09 AM EDT ICU PROGRESS NOTE DOA: 09/16/2024 Room: [address] [place] [address]-A Length of Stay: 9 ICU Length of Stay 8d 12h Lucero Bruno ( ) is a 74 y.o. 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 Over night events: none Medications: Scheduled Meds: amLODIPine 5 mg Per NG tube Daily polyethylene glycoL (MIRALAX) oral powder 17 g Per NG tube Daily piperacillin-tazobactam 3.375 g Intravenous Q8H insulin lispro 0-3 Units Subcutaneous Q4H CARLY ipratropium-albuteroL 3 mL Nebulization Q4H chlorhexidine 15 mL Oral BID famotidine 20 mg Per NG tube BID heparin (porcine) 5,000 Units Subcutaneous Q8H CARLY insulin lispro 2-12 Units Subcutaneous Q4H CARLY dilTIAZem 90 mg Per NG tube Q6H [facility] multivitamin with minerals 1 tablet Per NG tube Daily docusate sodium 100 mg Per NG tube BID And sennosides 17.6 mg Per NG tube BID Continuous Infusions: tube feeding diet 60 mL/hr at 09/25/24 0901 dexmedeTOMIDine 0.4 mcg/kg/hr (09/25/24 0751) PRN Meds:.acetaminophen, sodium chloride, fentaNYL (PF), potassium chloride ER OR potassium chloride ER, labetaloL, glucose 40% oral geL OR dextrose OR glucagon, bisacodyL, bacitracin zinc-polymyxin B, gelatin compressed, thrombin (Bovine) Vitals: Temp: [36.8 ??C (98.2 ??F)-37.8 ??C (100 ??F)] Heart Rate: [62-84] Resp: [18-27] BP: (88-142)/(47-99) SpO2: [90 %-99 %] Heart Rate from SpO2: [62 bpm-84 bpm] Ventilator Settings: PS 5/5 30% Physical Exam: Cons: NAD Cardiac: RRR S1S2 Pulm: CTAB, no W/R/R GI: S/NT/ND, BS+ MSK: WWP, no C/C/E Neuro Exam: MS - awake alert, interactive CN intact BUE purposeful, FC on R WD LLE, LUE I/Os: Intake/Output Summary (Last 24 hours) at 09/25/2024 1009 Last data filed at 09/25/2024 0800 Gross per 24 hour Intake 2159.69 ml Output 2010 ml Net 149.69 ml Labs: Last 3 wbc, hgb, hct plt Recent Labs 09/25/24 0429 09/24/24 0500 09/23/24 0101 WBC 27.24* 19.25* 19.97* HGB 10.5* 9.7* 10.0* HCT 31.9* 30.6* 30.1* PLATELET 379* 342 293 Last 3 Lytes Recent Labs 09/25/24 0429 09/24/24 0500 09/23/24 1623 09/23/24 0756 09/23/24 0101 NA 138 138 -- -- 138 K 4.1 4.2 4.3 < > 3.9 CL 102 102 -- -- 103 CO2 24 26 -- -- 25 BUN 28* 28* -- -- 26* CREATININE 0.49* 0.51* -- -- 0.47* < > = values in this interval not displayed. Last 3 LFTs Recent Labs 09/23/24 0756 05/08/24 0121 05/07/24 0157 AST 18 15 13 ALT 56* 14 14 ALKPHOS 80 92 91 BILITOT 0.3 0.4 0.3 BILIDIR <0.2 0.1 <0.1 Last Ca, Mg, Phos Recent Labs 09/25/24 042 CALCIUM 8.4* PHOS 3.4 MAGNESIUM 0.91 Last 3 Coags No results for input(s): PT, INR, PTT in the last 168 hours. Last 3 TFT Recent Labs 05/06/24 0548 TSH 0.99 Last 3 Lipids Recent Labs 09/20/24 0009 09/17/24 0039 09/16/24 1707 05/06/24 0548 CHLPL -- 203 -- 135 HDL -- 45 -- 46 LDLCHOL -- -- -- 69 LDLDIRECT -- 133 -- -- TRIG 95 147 174 101 Last 3 HgbA1C Recent Labs 09/17/24 0039 05/06/24 0548 HA1C 6.1* 6.0* Labs reviewed by me - WBC stable, H/H stable, LFTs not elevated enough to be concerned for cholecystitis Imaging/Studies: No new imaging Labs - I reviewed: significant wbc elevation, normal Na, stable BUN/creat Assessment/Plan: Neuro - R occipitoparietal ICH with cerebral edema, mass affect and brain compression s/p R craniotomy. 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 - q2 neurochecks - SBP < 160 - Analgesia: tylenol, PRN fentanyl - Sedation: precedex low doses since Friday, 09/18 CV - Rate controlled afib s/p watchman device - BP as above - c/w diltiazem for rate control - if MAP sustained < 65, IVF, consider pressors -amlodipine, cardizem Pulm - Total ETT days 8 Reintubated, doing well, continue steroids (started 09/21, 2:30 pm) dexamethasone 8Q8 Extubate today GI - Dysphagias - TF via OGT - maintain bowel reg Last Bowel Movement: 09/24/24 - GI ppx with H2B FEN/ - - Goal eunatremia, HTS if neurologically deteriorates - ICU potassium repletion protocol - Hill for strict I/Os Heme - - goal Hgb > 7, INR < 1.5, Platelets > 100k - SCDs, chemoppx contraindicated Endo - - goal glucose 120-180 --> Accuchecks and ISS ID - Afebrile, reactive leukocytosis Respiratory - strep anginosus Zosyn started 09/24, for wbc, increased O2 requirement -UA with yeast - no other source of yeast, hold on treatment -re-send UA, pull hill - acetaminophen PRN -check UA, CXR, LFT, unlikely to be PE Core: Code status: FULL Dispo - ICU //////////////////////////////////////////////////////////////////////////////// //////////////////// /////////////////////////////////////////////////Attestation: IS PATIENT CRITICALLY ILL? Is there a high potential of sudden, clinically significant, or life threatening deterioration? Yes Is there a need for direct personal assessment and management to treat/prevent multiple vital organfailure/deterioration? Yes I personally performed 40 minutes of aggregate critical care time exclusive of procedures and teaching. This includes time spent during direct patient evaluation and reassessment, interpreting diagnostic tests, directing life and/or organ supporting interventions and documentation on the unit. Mariola Calixto MD 09/25/2024 10:09 AM * Aries Ivory RCP - 09/25/2024 5:11 AM EDT RT Ventilation Progress Report: Ventilator settings: PS Above PEEP (cm H2O): 5 Set PEEP (cm H2O): 5 Set FiO2: 30 % Ventilator measurements: Resp: 21 Tidal Volume Measured Exp.: 434 Minute Ventilation Total Exhaled (L/min): 9.3 Assessment: Remains intubated primarily due to airway protection/swelling, recently failing extubation with reported stridor. Respiratory status is otherwise uncomplicated, managed on minimal PS 5/5/30% with normal rates, volumes and pattern. Passed morning SBT. As of 0500 this morning, an audible cuff leak is heard on deflation ETT Airway 09/21/24 1251 (Active) Airway Size Verification 7.5 mm 09/25/24 0405 Site Changed to: left side of mouth 09/25/24 0405 Appearance clean 09/25/245 Tube Securement endotracheal (ET) tube nava 09/25/24404 Tube Reference Point teeth 09/25/24404 Airway Tube Secured At (cm) 22 09/25/24 0405 * Ihsan Winston RCP - 09/24/2024 6:10 PM EDT AMV Protocol: Yes SBT Protocol: Yes Vent Settings: Ventilator Mode: PS/CPAP PEEP Set: 5 FiO2: 30 % PSV: 5 Ventilator Measurements: Resp: 18 Vt Spontaneous: 406 Ve: 11.5 SpO2: 93 % EtCO2: 28 mmHg Airway: 7.5 @ 22 cm at the Teeth. Skin Integrity: WDL Illness Severity Stable Respiratory Modalities: PS/CPAP 5/+5, 30 % Airway: 7.5 @ 22 Teeth Patient Summary Admitted: 09/16/2024 Age: 74 y.o. Code Status: FULL. HPI: Presents to [facility] for watchman procedure and developed a large R ICH post-op that required intubation for airway protection and emergent R craniotomy for evacuation PMHx: prior R occipital ICH, a-fib Events w/ date: 09/21 - Appreciated cuff leak, tongue does not seem as edematous as last two days. Extubated patient to NC, patient with moderate amount of secretions attempted to NT sx unable to pass suction catheter through L nare, oropharyngeal sx for moderate amounts of thick secretions. Increase WOB noted andhigher O2 requirement on NRB pt reintubated. Anes intubated with D blade. PSV 8/+8 09/23: Pt received on PSV 5/5 35%. No cuff leak until 18 of PEEP. Tracheal secretions increased noting thick, yellow/white. Mini-BAL preformed. Able to titrate FiO2 to 25%. 09/24: Pt received on PSV 5/5 35%. Able to titrate to 30%. Tracheal secretions continue to present as thick, white/yellow. IPV requested due to pending results from respiratory culture. * Mariola Calixto MD - 09/24/2024 10:00 AM EDT ICU PROGRESS NOTE DOA: 09/16/2024 Room: [address] [place] [address]-A Length of Stay: 8 ICU Length of Stay 7d 11h Lucero Bruno ( ) is a 74 y.o. 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 Over night events: none Medications: Scheduled Meds: amLODIPine 5 mg Oral Daily insulin lispro 0-3 Units Subcutaneous Q4H CARLY ipratropium-albuteroL 3 mL Nebulization Q4H chlorhexidine 15 mL Oral BID famotidine 20 mg Per NG tube BID dexAMETHasone inj 8 mg Intravenous Q8H CARLY heparin (porcine) 5,000 Units Subcutaneous Q8H CARLY insulin lispro 2-12 Units Subcutaneous Q4H CARLY dilTIAZem 90 mg Per NG tube Q6H CARLY multivitamin with minerals 1 tablet Per NG tube Daily polyethylene glycoL (MIRALAX) oral powder 17 g Oral Daily docusate sodium 100 mg Per NG tube BID And sennosides 17.6 mg Per NG tube BID Continuous Infusions: tube feeding diet 20 mL/hr at 09/24/24 0815 dexmedeTOMIDine Stopped (09/24/24 0810) PRN Meds:.potassium chloride ER OR potassium chloride ER, labetaloL, acetaminophen, glucose 40%oral geL OR dextrose OR glucagon, bisacodyL, bacitracin zinc-polymyxin B, gelatin compressed, thrombin (Bovine) Vitals: Temp: [36.7 ??C (98.1 ??F)-37.3 ??C (99.1 ??F)] Heart Rate: [60-82] Resp: [16-27] BP: (92-149)/(45-73) SpO2: [90 %-100 %] Heart Rate from SpO2: [60 bpm-82 bpm] Ventilator Settings: PS 5/5 30% Physical Exam: Cons: NAD Cardiac: RRR S1S2 Pulm: CTAB, no W/R/R GI: S/NT/ND, BS+ MSK: WWP, no C/C/E Neuro Exam: MS - awake alert, interactive CN intact BUE purposeful, FC on R WD LLE, LUE I/Os: Intake/Output Summary (Last 24 hours) at 09/24/2024 1000 Last data filed at 09/24/2024 0800 Gross per 24 hour Intake 1568.69 ml Output 1950 ml Net -381.31 ml Labs: Last 3 wbc, hgb, hct plt Recent Labs 09/24/24 0500 09/23/24 0101 09/22/24 0126 WBC 19.25* 19.97* 16.65* HGB 9.7* 10.0* 9.9* HCT 30.6* 30.1* 29.4* PLATELET 342 293 274 Last 3 Lytes Recent Labs 09/24/24 0500 09/23/24 1623 09/23/24 0756 09/23/24 0101 09/22/24 0126 NA 138 -- -- 138 139 K 4.2 4.3 3.9 3.9 4.0 CL 102 -- -- 103 104 CO2 26 -- -- BUN 28* -- -- 26* 26* CREATININE 0.51* -- -- 0.47* 0.53* Last 3 LFTs Recent Labs 09/23/24 0756 05/08/24 0121 05/07/24 0157 AST 18 15 13 ALT 56* 14 14 ALKPHOS 80 92 91 BILITOT 0.3 0.4 0.3 BILIDIR <0.2 0.1 <0.1 Last Ca, Mg, Phos Recent Labs 09/24/24 0500 CALCIUM 8.5 PHOS 3.7 MAGNESIUM 0.89 Last 3 Coags Recent Labs 09/18/24 0615 09/18/24 0020 09/17/24 1723 PT 12.3 12.8* 12.1 INR 1.1 1.1 1.1 PTT Last 3 TFT Recent Labs 05/06/24 0548 TSH 0.99 Last 3 Lipids Recent Labs 09/20/24 0009 09/17/24 0039 09/16/24 1707 05/06/24 0548 CHLPL -- 203 -- 135 HDL -- 45 -- 46 LDLCHOL -- -- -- 69 LDLDIRECT -- 133 -- -- TRIG 95 147 174 101 Last 3 HgbA1C Recent Labs 09/17/24 0039 05/06/24 0548 HA1C 6.1* 6.0* CT reviewed - drain out, hemorrhage stable CXR reviewed LLL opacity - atelectasis vs effusion vs consolidation Labs reviewed by me - WBC stable, H/H stable, LFTs not elevated enough to be concerned for cholecystitis Imaging/Studies: No new imaging Assessment/Plan: Neuro - R occipitoparietal ICH with cerebral edema, mass affect and brain compression s/p R craniotomy. 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 - q1 neurochecks - SBP < 140 - Analgesia: tylenol, PRN fentanyl - Sedation: precedex low doses since Friday, 09/18 CV - Rate controlled afib s/p watchman device - BP as above - c/w diltiazem for rate control - if MAP sustained < 65, IVF, consider pressors - Transition from Clevidipine to minimize volume -amlodipine, cardizem Pulm - Total ETT days 8 Reintubated, doing well, continue steroids (started 10/29, 2:30 pm) dexamethasone 8Q8 GI - Dysphagias - TF via OGT - maintain bowel reg Last Bowel Movement: 09/24/24 - GI ppx with H2B FEN/ - - Goal eunatremia, HTS if neurologically deteriorates - ICU potassium repletion protocol - Sergio for strict I/Os Heme - - goal Hgb > 7, INR < 1.5, Platelets > 100k - SCDs, chemoppx contraindicated Endo - - goal glucose 120-180 --> Accuchecks and ISS ID - Afebrile, reactive leukocytosis Increased FiO2, thick secretions, GNR in BAL, will start zosyn and reassess tomorrow for narrowing pending sensitivities -UA with yeast - no other source of yeast, hold on treatment - Reculture q72hr for temp > 101F --> UA, blood cx, sputum cx, CXR - acetaminophen PRN -check UA, CXR, LFT, unlikely to be PE Core: Code status: FULL Dispo - ICU //////////////////////////////////////////////////////////////////////////////// //////////////////// /////////////////////////////////////////////////Attestation: IS PATIENT CRITICALLY ILL? Is there a high potential of sudden, clinically significant, or life threatening deterioration? Yes Is there a need for direct personal assessment and management to treat/prevent multiple vital organfailure/deterioration? Yes I personally performed 40 minutes of aggregate critical care time exclusive of procedures and teaching. This includes time spent during direct patient evaluation and reassessment, interpreting diagnostic tests, directing life and/or organ supporting interventions and documentation on the unit. Mariola Calixto MD 09/24/2024 10:00 AM * Rob Guzman MD - 09/24/2024 6:58 AM EDT [facility] NEUROSURGERY PROGRESS NOTE ID: Lucero Bruno 74 y.o. female : 1950 LOS: 8 Neurosurgical Procedures this Admission: 09/16/24, Dr. Espinal: R craniotomy for IPH evacuation INTERVAL Hx: NAEON. Pt remains intubated. Following commands MEDICATIONS: Scheduled Meds: magnesium sulfate 2 g Intravenous Once amLODIPine 5 mg Oral Daily insulin lispro 0-3 Units Subcutaneous Q4H CARLY ipratropium-albuteroL 3 mL Nebulization Q4H chlorhexidine 15 mL Oral BID famotidine 20 mg Per NG tube BID dexAMETHasone inj 8 mg Intravenous Q8H CARLY heparin (porcine) 5,000 Units Subcutaneous Q8H CARLY insulin lispro 2-12 Units Subcutaneous Q4H CARLY dilTIAZem 90 mg Per NG tube Q6H CARLY multivitamin with minerals 1 tablet Per NG tube Daily polyethylene glycoL (MIRALAX) oral powder 17 g Oral Daily docusate sodium 100 mg Per NG tube BID And sennosides 17.6 mg Per NG tube BID Continuous Infusions: tube feeding diet dexmedeTOMIDine 0.4 mcg/kg/hr (09/24/24 0623) PRN: potassium chloride ER, 40 mEq, Q4H PRN Or potassium chloride ER, 20 mEq, Q4H PRN labetaloL, 10-20 mg, Q2H PRN acetaminophen, 650 mg, Q6H PRN glucose 40% oral geL, 15-30 g of glucose, Q15 Min PRN Or dextrose, 250 mL, Q15 Min PRN Or glucagon, 1 mg, Q15 Min PRN bisacodyL, 10 mg, Daily PRN bacitracin zinc-polymyxin B, , PRN gelatin compressed, , PRN thrombin (Bovine), , PRN EXAM: Temp: [36.6 ??C (97.9 ??F)-37.3 ??C (99.1 ??F)] Heart Rate: [60-82] Resp: [18-27] BP: (100-149)/(47-73) SpO2: [90 %-96 %] Heart Rate from SpO2: [60 bpm-82 bpm] I/O: Intake/Output Summary (Last 24 hours) at 09/24/2024 0719 Last data filed at 09/24/2024 0623 Gross per 24 hour Intake 1508.7 ml Output 2325 ml Net -816.3 ml Drains: AUBREY out 09/21 GEN: Intubated NEURO: A/ox3 with yes/no questions via thumbs up/thumbs down (name/year/place) R pupil 3mm, reactive L eye down, possible down and lateral deviation, reactive MOTOR: RUE: FC, thumbs up LUE: extends to noxious stimuli (baseline since pre-op) RLE: FC, wiggles toes LLE: WD L hemianesthesia incision CDI - stacey LABS: Recent Labs 09/24/24 0500 09/23/24 0101 09/22/24 0126 WBC 19.25* 19.97* 16.65* HGB 9.7* 10.0* 9.9* PLATELET 342 293 274 Recent Labs 09/24/24 0500 09/23/24 1623 09/23/24 0756 09/23/24 0101 09/22/24 0126 NA 138 -- -- 138 139 K 4.2 4.3 3.9 3.9 4.0 CL 102 -- -- 103 104 CO2 26 -- -- 25 23 BUN 28* -- -- 26* 26* CREATININE 0.51* -- -- 0.47* 0.53* No results for input(s): PT, INR in the last 72 hours. IMAGING: Results for orders placed or performed during the hospital encounter of 09/16/24 CT Head wo Contrast (Generic) (Exam End: 09/16/2024 5:26 PM) Result Value WORKSTATION ID [id number] Impression Interval expansion of now large right-sided temporal occipital intraparenchymal hemorrhage with significant mass effect resulting in 1 cm leftward midline shift. Per chart review, this patient was seen by neurosurgery and taken emergently to the OR. I have personally reviewed the image(s) and the resident's interpretation and agree with the findings, Lana Reinoso at 09/16/2024 6:01 PM Thank you for letting us participate in the care of this patient. If you are a health care provider and have any questions regarding this report, please contact the number below. For patients who have questions please contact the health ocular care technician that requested your imaging first. Electronically signed by: Lana Reinoso, [facility] ([phone]), at 09/16/2024 6:[address] Head wo Contrast (Generic) (Exam End: 09/16/2024 11:21 PM) Result Value WORKSTATION ID [id number] Impression CT head: 1. Interval craniotomy with residual or recurrent hemorrhage right temporal and parietal lobe. 2. New hemorrhage right [...] in the care of this patient. If you are a health care provider and have any questions regarding this report, please contact the number below. For patients who have questions please contact the health ocular care technician that requested your imaging first. Electronically signed by: Armando Pan MD, [facility] ([phone]), at 09/17/2024 1:[address] Venogram Brain (Exam End: 09/16/2024 11:21 PM) Result Value WORKSTATION ID [id number] Impression CT head: 1. Interval craniotomy with residual or recurrent hemorrhage right temporal and parietal lobe. 2. New hemorrhage right [...] in the care of this patient. If you are a health care provider and have any questions regarding this report, please contact the number below. For patients who have questions please contact the health ocular care technician that requested your imaging first. Electronically signed by: Armando Pan MD, [facility] ([phone]), at 09/17/2024 1:42 AM XR Chest One View (Exam End: 09/16/2024 11:00 PM) Result Value WORKSTATION ID [id number] Impression Satisfactorily positioned enteric and endotracheal tubes. Left lower lobe atelectasis versus pneumonia. Thank you for letting us participate in the care of this patient. If you are a health care provider and have any questions regarding this report, please contact the number below. For patients who have questions please contact the health ocular care technician that requested your imaging first. Abdomen 1 view (Generic) (Exam End: 09/16/2024 11:00 PM) Result Value WORKSTATION ID [id number] Impression Satisfactorily positioned enteric and endotracheal tubes. Left lower lobe atelectasis versus pneumonia. Thank you for letting us participate in the care of this patient. If you are a health care provider and have any questions regarding this report, please contact the number below. For patients who have questions please contact the health ocular care technician that requested your imaging first. Head wo Contrast (Generic) (Exam End: 09/17/2024 4:51 AM) Result Value WORKSTATION ID [id number] Impression Increased size and density of dominant right parietal hematoma, and of hemorrhage extending medially into the basal ganglia. Foci of thalamocapsular hemorrhage on the right are stable. No evidence of progressive intraventricular hemorrhage or ventricular dilation. No definitive increase in leftward midline shift or herniation. Thank you for letting us participate in the care of this patient. If you are a health care provider and have any questions regarding this report, please contact the number below. For patients who have questions please contact the health ocular care technician that requested your imaging first. Electronically signed by: Elvin Bolden DO, [facility] ([phone]), at 09/17/2024 8:38 AM XR Chest One View (Exam End: 09/17/2024 2:13 PM) Result Value WORKSTATION ID [id number] Impression 1. No focal opacity in lung 2. Pulmonary edema, progressed since last examination. 3. Tip of ET tube is 23 mm superior cuff to jonathan. Consider adjustment. 4. Sidehole and tip of NG tube is below the diaphragm. Thank you for letting us participate in the care of this patient. If you are a health care provider and have any questions regarding this report, please contact the number below. For patients who have questions please contact the health ocular care technician that requested your imaging first. Electronically signed by: Zoey Zabala MD, [facility] ([phone]), at 09/17/2024 2:43 PM XR Chest One View (Exam End: 09/18/2024 8:43 AM) Result Value WORKSTATION ID [id number] Impression Tubes and lines as described. Blunting of the left costophrenic angle suggests tiny layering left effusion with associated left basilar consolidation/atelectasis Thank you for letting us participate in the care of this patient. If you are a health care provider and have any questions regarding this report, please contact the number below. For patients who have questions please contact the health ocular care technician that requested your imaging first. Abdomen 1 view (Generic) (Exam End: 09/18/2024 12:31 PM) Result Value WORKSTATION ID [id number] Impression Dobbhoff tube tip along the greater curve of the stomach. Thank you for letting us participate in the care of this patient. If you are a health care provider and have any questions regarding this report, please contact the number below. For patients who have questions please contact the health ocular care technician that requested your imaging first. Brain wwo Contrast (Generic) (Exam End: 09/19/2024 5:43 PM) Result Value WORKSTATION ID [id number] Impression Unchanged size of large right cerebral hemisphere ICH status post partial evacuation. Numerous small foci of decreased acute infarction both along and separate from the site of hemorrhage. These foci are present in both cerebral hemispheres and have a pattern most consistent with embolic infarction. No evidence of [employer] DES[employer] malignancy Thank you for letting us participate in the care of this patient. If you are a health care provider and have any questions regarding this report, please contact the number below. For patients who have questions please contact the health ocular care technician that requested your imaging first. Electronically signed by: Rios Swartz MD, [facility] ([phone]), at 09/20/2024 8:[address] Head wo Contrast (Generic) (Exam End: 09/21/2024 3:50 AM) Result Value WORKSTATION ID [id number] Impression Stable hemorrhage right temporal, parietal, right posterior limb internal capsule and right thalamus. Mild progression of vasogenic edema adjacent to hemorrhage. Similar pattern and extent of local and generalized mass effect with stable subfalcine herniation and uncal herniation. Thank you for letting us participate in the care of this patient. If you are a health care provider and have any questions regarding this report, please contact the number below. For patients who have questions please contact the health ocular care technician that requested your imaging first. Electronically signed by: Armando Pan MD, [facility] ([phone]), at 09/21/2024 4:55 AM XR Abdomen 1 view (Generic) (Exam End: 09/21/2024 2:01 PM) Result Value WORKSTATION ID [id number] Impression Dobbhoff tube and enteric tube sidehole and tip is projecting over the expected location of the stomach. I have personally reviewed the image(s) and the resident's interpretation and agree with the findings, Shraddha Cox MD at 09/21/2024 3:40 PM Thank you for letting us participate in the care of this patient. If you are a health care provider and have any questions regarding this report, please contact the number below. For patients who have questions please contact the health ocular care technician that requested your imaging first. Electronically signed by: Shraddha Cox MD, [facility] ([phone]), at 09/21/2024 3:40 PM XR Chest One View (Exam End: 09/21/2024 2:01 PM) Result Value WORKSTATION ID [id number] Impression ET tube with tip projecting approximately 1.4 cm above the jonathan. Recommend retracting approximately 2 cm and follow-up imaging. New left basilar atelectasis and/or small pleural effusion. Aspiration or pneumonia could also this appearance. I Sacha Shipley MD discussed the results (Impression #1) with Bonnie Vazquez on 09/21/2024 4:42 PM and verified that the results were understood. I have personally reviewed the image(s) and the resident's interpretation and agree with the findings, Octavio Scott MD at 09/21/2024 5:09 PM Thank you for letting us participate in the care of this patient. If you are a health care provider and have any questions regarding this report, please contact the number below. For patients who have questions please contact the health ocular care technician that requested your imaging first. Electronically signed by: Octavio Scott MD, [facility] ([phone]), at 09/21/2024 5:[address] Head wo Contrast (Generic) (Exam End: 09/22/2024 4:02 AM) Result Value WORKSTATION ID [id number] Impression Stable head CT status post removal of subcutaneous drain. No new or enlarging hemorrhage. Stable pattern of mass effect Thank you for letting us participate in the care of this patient. If you are a health care provider and have any questions regarding this report, please contact the number below. For patients who have questions please contact the health ocular care technician that requested your imaging first. Electronically signed by: Armando Pan MD, [facility] ([phone]), at 09/22/2024 4:31 AM Assessment: 74 y.o. female with PMHx notable for Afib (taking ASA, previously on apixaban-stopped taking after IPH in April 2024), CHRISTOPHER, HLD, BMI of 36, prior IPH 04/2024 who presented to hospital 09/16/24 for placement of Watchman with cardiology. She developed headaches and nausea post op and CT scan noted large R uzhinkue-apazwoz-[id number] IPH. Now s/p 09/16/24, Dr. Espinal: R craniotomy for IPH evacuation. Repeated CTH wo contrast post-op overnight into 09/17 showing increased hemorrhage on R but exam remains stable. Will defer further neurosurgical intervention at this time and continue to closely monitor exam. Contusions are likely to evolve in coming days with increased edema so advise hypernatremia with Na goal 140-150. 09/18 AM noted L eye down, possible out. MRI Brain wwo on 09/19 showing small scattered infarcts c/w embolic infarcts no brainstem infarcts nor any that would explain possible palsy. Attempt to extubate on 09/21 met with expeditious re-intubation. Wean vent and sedation as tolerated. Plan: -Wean sedation and wean to extubate as able -Q1h neuro checks, while intubated -MRI Brain wwo done -SBP 90-160 -DVT ppx with SCDs, SQH -Hold antiplatelets/anticoagulants -Na goal 140-150 -Rest of care per primary For questions please call [employer] pager [phone] Rob Guzman MD Clinical Documentation Improvement: Active Hospital Problems Diagnosis Presence of Watchman left atrial appendage closure device Resolved Hospital Problems No resolved problems to display. * Gayle Daniel, [facility] - 09/24/2024 5:32 AM EDT AMV Protocol: Yes SBT Protocol: Yes SBT: Passed Vent Settings: Ventilator Mode: PS/CPAP PEEP Set: 5 FiO2: 35 % PSV: 5 Ventilator Measurements: Resp: 20 Vt Spontaneous: 418 Ve: 11.1 SpO2: 92 % EtCO2: 29 mmHg Airway: 7.5 @ 22 cm at the Teeth. Skin Integrity: WDL Nebulized Medications: Albuterol & Ipratroprium Q4 Breath Sounds: diminished Secretions: large, creamy; yellow, thick Assessment / Events / Plan of the Day: Received pt on PSV 5/5 25%, FiO2 increased to 35% at first assessment per SpO2. Events: Pt passed SBT on PSV 0/5 35% without issue, pt returned to PSV 5/5 35% after SBT. Plan: Continue AMV/ SBT protocol; titrate vent settings as tolerated. Gayle Daniel RCP * Ihsan Winston RCP - 09/23/2024 6:02 PM EDT AMV Protocol: Yes SBT Protocol: Yes Vent Settings: Ventilator Mode: PS/CPAP PEEP Set: 5 FiO2: 25 % PSV: 5 Ventilator Measurements: Resp: 27 Vt Spontaneous: 427 Ve: 11.5 SpO2: 90 % EtCO2: 26 mmHg Airway: 7.5 @ 22 cm at the Teeth. Skin Integrity: WDL Nebulized Medications: Albuterol & Ipratroprium Breath Sounds: Coarse Secretions: Thick, Yellow/White Illness Severity Stable Respiratory Modalities: PS/CPAP 5/+5, 25 % Airway: 7.5 @ 22 Teeth Patient Summary Admitted: 09/16/2024 Age: 74 y.o. Code Status: FULL. HPI: Presents to [facility] for watchman procedure and developed a large R ICH post-op that required intubation for airway protection and emergent R craniotomy for evacuation PMHx: prior R occipital ICH, a-fib Events w/ date: 09/21 - Appreciated cuff leak, tongue does not seem as edematous as last two days. Extubated patient to GA, patient with moderate amount of secretions attempted to NT sx unable to pass suction catheter through L nare, oropharyngeal sx for moderate amounts of thick secretions. Increase WOB noted andhigher O2 requirement on NRB pt reintubated. Anes intubated with D blade. PSV 8/+8 09/23: Pt received on PSV 5/5 35%. No cuff leak until 18 of PEEP. Tracheal secretions increased noting thick, yellow/white. Mini-BAL preformed. Able to titrate FiO2 to 25%. * Anupama Pastrana RN - 09/23/2024 3:51 PM EDT Based on discussions with the multi-disciplinary healthcare team, the patient would benefit from SNF level of care at discharge. I have met with the residential sales representative (son Don Pollard) to: discuss discharge planning needs. provide the [facility], Office of Care Management letter from the Federal Aid Coordinator pertaining to rehab referrals. provide a letter describing our affiliations within the [facility] and educate about their right to choose where referrals are sent. provide the CMS Star Quality Rating handout. review the different levels of rehab including SNF, swing, and acute. provide a list of facilities within their preferred geographic area. request that they provide at least three choices for referral. They have requested referrals to: [facility] [address] [place] [address] Note routed to a Global Mobility Specialist who will communicate referrals to facilities and provide any required information. Anupama Pastrana, KIKO, RN, ACM-RN [facility] manager ed * Dayana Cotter SLP - 09/23/2024 10:25 AM EDT Speech-Language Pathology Consult Note [place] Bruno is a 74 y.o. 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 Remains in Neuro ICU on vent. [employer] team will continue to monitor. Dayana Cotter MA [facility] Inpatient Rehabilitation Medicine pager:# [phone] * Mariola Calixto MD - 09/23/2024 9:27 AM EDT ICU PROGRESS NOTE DOA: 09/16/2024 Room: [address] [place] [address]-A Length of Stay: 7 ICU Length of Stay 6d 11h Lucero Smithson ( ) is a 74 y.o. 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 Over night events: none Medications: Scheduled Meds: amLODIPine 5 mg Oral Daily insulin lispro 0-3 Units Subcutaneous Q4H CARLY ipratropium-albuteroL 3 mL Nebulization Q4H chlorhexidine 15 mL Oral BID famotidine 20 mg Per NG tube BID dexAMETHasone inj 8 mg Intravenous Q8H CARLY heparin (porcine) 5,000 Units Subcutaneous Q8H CARLY insulin lispro 2-12 Units Subcutaneous Q4H CARLY dilTIAZem 90 mg Per NG tube Q6H CARLY multivitamin with minerals 1 tablet Per NG tube Daily polyethylene glycoL (MIRALAX) oral powder 17 g Oral Daily docusate sodium 100 mg Per NG tube BID And sennosides 17.6 mg Per NG tube BID Continuous Infusions: tube feeding diet Stopped (09/23/24 035) dexmedeTOMIDine 0.4 mcg/kg/hr (09/23/24 8098) PRN Meds:.potassium chloride in water OR potassium chloride in water OR potassium chloride in water, labetaloL, acetaminophen, glucose 40% oral geL OR dextrose OR glucagon, bisacodyL,bacitracin zinc-polymyxin B, gelatin compressed, thrombin (Bovine) Vitals: Temp: [36.6 ??C (97.9 ??F)-37.2 ??C (99 ??F)] Heart Rate: [62-97] Resp: [16-31] BP: (107-163)/(52-95) SpO2: [90 %-99 %] Heart Rate from SpO2: [62 bpm-96 bpm] Ventilator Settings: PS 5/5 30% Physical Exam: Cons: NAD Cardiac: RRR S1S2 Pulm: CTAB, no W/R/R GI: S/NT/ND, BS+ MSK: WWP, no C/C/E Neuro Exam: MS - awake alert, interactive CN intact BUE purposeful, FC on R WD LLE, LUE I/Os: Intake/Output Summary (Last 24 hours) at 09/23/2024 0927 Last data filed at 09/23/2024 0800 Gross per 24 hour Intake 1668 ml Output 1602 ml Net 66 ml Labs: Last 3 wbc, hgb, hct plt Recent Labs 09/23/24 0101 09/22/24 0126 09/21/24 0021 WBC 19.97* 16.65* 14.84* HGB 10.0* 9.9* 8.9* HCT 30.1* 29.4* 27.2* PLATELET 293 274 217 Last 3 Lytes Recent Labs 09/23/24 0756 09/23/24 0101 09/22/24 0126 09/21/24 0021 NA -- 138 139 141 K 3.9 3.9 4.0 4.2 CL -- 103 104 107 CO2 -- 25 23 23 BUN -- 26* 26* 30* CREATININE -- 0.47* 0.53* 0.54* Last 3 LFTs Recent Labs 05/08/24 0121 05/07/24 0157 05/06/24 0951 AST 15 13 16 ALT 14 14 16 ALKPHOS 92 91 97 BILITOT 0.4 0.3 0.4 BILIDIR 0.1 <0.1 -- Last Ca, Mg, Phos Recent Labs 09/23/24 010 CALCIUM 8.7 PHOS 3.2 MAGNESIUM 0.85 Last 3 Coags Recent Labs 09/18/24 0615 09/18/24 0020 09/17/24 1723 PT 12.3 12.8* 12.1 INR 1.1 1.1 1.1 PTT Last 3 TFT Recent Labs 05/06/24 0548 TSH 0.99 Last 3 Lipids Recent Labs 09/20/24 0009 09/17/24 0039 09/16/24 1707 05/06/24 0548 CHLPL -- 203 -- 135 HDL -- 45 -- 46 LDLCHOL -- -- -- 69 LDLDIRECT -- 133 -- -- TRIG 95 147 174 101 Last 3 HgbA1C Recent Labs 09/17/24 0039 05/06/24 0548 HA1C 6.1* 6.0* CT reviewed - drain out, hemorrhage stable CXR reviewed LLL opacity - atelectasis vs effusion vs consolidation Labs reviewed by me - trending up wbc, H/H uptrending, slight elevation in BUN Imaging/Studies: - I have reviewed the recent CT - stable hemorrhage, increased amount of edema and persistent IVH Assessment/Plan: Neuro - R occipitoparietal ICH with cerebral edema, mass affect and brain compression s/p R craniotomy. 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 - q1 neurochecks - SBP < 140 - Analgesia: tylenol, PRN fentanyl - Sedation: precedex since Friday, 09/18 CV - Rate controlled afib s/p watchman device - BP as above - c/w diltiazem for rate control - if MAP sustained < 65, IVF, consider pressors - Transition from Clevidipine to minimize volume -amlodipine, cardizem Pulm - Total ETT days 6 Reintubated, doing well, continue steroids (started 09/21, 2:30 pm) GI - Dysphagia - TF via OGT - maintain bowel reg Last Bowel Movement: 09/22/24 - GI ppx with H2B FEN/ - - Goal eunatremia, HTS if neurologically deteriorates - ICU potassium repletion protocol - Hill for strict I/Os Heme - - goal Hgb > 7, INR < 1.5, Platelets > 100k - SCDs, chemoppx contraindicated Endo - - goal glucose 120-180 --> Accuchecks and ISS ID - Afebrile, reactive leukocytosis - Monitor off antibiotics - Reculture q72hr for temp > 101F --> UA, blood cx, sputum cx, CXR - acetaminophen PRN -check UA, CXR, LFT, unlikely to be PE Core: Code status: FULL Dispo - ICU //////////////////////////////////////////////////////////////////////////////// //////////////////// /////////////////////////////////////////////////Attestation: IS PATIENT CRITICALLY ILL? Is there a high potential of sudden, clinically significant, or life threatening deterioration? Yes Is there a need for direct personal assessment and management to treat/prevent multiple vital organfailure/deterioration? Yes I personally performed 40 minutes of aggregate critical care time exclusive of procedures and teaching. This includes time spent during direct patient evaluation and reassessment, interpreting diagnostic tests, directing life and/or organ supporting interventions and documentation on the unit. Mariola Calixto MD 09/23/2024 9:27 AM * Sherine Santana, RD - 09/23/2024 8:29 AM EDT Nutrition Progress Note Lucero Bruno is a 74 y.o. female admitted with PMHx of paroxysmal afib (not on AC) and prior Roccipital ICH thought to be 2/2 to CAA who developed sudden onset 10/ CABA post watchman procedure found to have a large R IPH w/ mass effects and midline shift w/ significant neurological decline requiring intubation for airway protections. Now is s/p craniotomy and hematoma evacuation. 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 Interval History No data found. Reason for Assessment: Follow-up, ICU Tube Feeding Nutrition Recommendations: Limit TF holds as able Change TF to: Peptamen AF with a goal rate of 60 mL per hour This rate is calculated to compensate for unplanned time off feedings due to potential procedures, etc. At goal, this will provide 1200 mL formula, 1440 calories, 91 grams protein, 974 mL water from formula, and 96% of the RDI's for vitamin and minerals. Mg and phos with daily labs Monitor BM - optimize regimen with goal of 1 [id number] while on TF Monitor BG - goal of 140-180 Daily weights I was able to discuss plan with provider NCC [id number] . Current Nutrition Regimen: Active Orders Diet NPO diet (Give Meds) Frequency: Effective Now Number of Occurrences: Until Specified All Active TF Orders: Peptamen Intense VHP with a goal rate of 55 mL per hour This rate is calculated to compensate for unplanned time off feedings due to potential procedures, etc. At goal, this will provide 1100 mL formula, 1100 calories, 101 grams protein, 924 mL water from formula, and 73% of the RDI's for vitamin and minerals. Average tube feeding provision over past 2 days; 806mL vs daily goal volume of 1100mL formula (73% of goal) Tolerance or barriers to meeting needs: holds Assessment: Lab Results Component Value Date NA 138 09/23/2024 NA 141 05/08/2024 K 3.9 09/23/2024 K 4.2 05/08/2024 CL 103 09/23/2024 CL 105 05/08/2024 CO2 25 09/23/2024 CO2 25 05/08/2024 BUN 26 (H) 09/23/2024 BUN 14 05/08/2024 CREATININE 0.47 (L) 09/23/2024 CREATININE 0.68 (L) 05/08/2024 ESTGFR 92 05/08/2024 MAGNESIUM 0.85 09/23/2024 MAGNESIUM 0.85 05/08/2024 CALCIUM 8.7 09/23/2024 CALCIUM 9.2 05/08/2024 PHOS 3.2 09/23/2024 PHOS 3.1 05/08/2024 AST 15 05/08/2024 ALT 14 05/08/2024 ALKPHOS 92 05/08/2024 BILITOT 0.4 05/08/2024 BILIDIR 0.1 05/08/2024 TRIG 95 09/20/2024 TRIG 101 05/06/2024 HA1C 6.1 (H) 09/17/2024 HA1C 6.0 (H) 05/06/2024 25OHVITD 38 11/14/2023 Lab Results Component Value Date POCGLU 169 09/23/2024 POCGLU 167 09/23/2024 POCGLU 209 (H) 09/23/2024 POCGLU 200 (H) 09/23/2024 POCGLU 181 09/22/2024 POCGLU 159 09/22/2024 POCGLU 162 09/22/2024 POCGLU 189 09/22/2024 POCGLU 181 09/22/2024 Patient Lines/Drains/Airways Status Active Nutritional LDAs Name Placement date Placement time Site Days Naso/Oral Tube 09/18/24 1229 small bore;nonweighted right nostril 09/18/24 1229 right nostril 5 PIV 09/16/24 2216 20 gauge median cubital vein (antecubital fossa), left 09/16/24 2216 -- 7 Percutaneous Central Line 09/17/24 1405 Triple Lumen subclavian vein, right 09/17/24 1405 -- 6 Urethral Catheter 09/16/24 latex 14 5 10 09/16/24 -- -- 7 Oxygen Therapy / Airway Device: Ventilator Shift Pressure Injury Prevention Occiput: No Injury Thoracic Spine: No Injury Sacral: No Injury Ischial - left: No Injury Ischial - right: No Injury Heel - left: No Injury Heel - right: No Injury Elbow - left: No Injury Elbow - right: No Injury Device Sites: hill, IV sites, SCD's / venodynes, NGT, O2 sat monitor, wrist restraints, ECG Leads,ETT EEG Skin Appearance: clean, dry, intact Other Sites: (DHT) Last Bowel Movement: 09/22/24 Intake/Output Summary (Last 24 hours) at 09/23/2024 0833 Last data filed at 09/23/2024 0800 Gross per 24 hour Intake 1668 ml Output 1602 ml Net 66 ml Relevant medications: Continuous tube feeding diet Stopped (09/23/24 0355) dexmedeTOMIDine 0.4 mcg/kg/hr (09/23/24 0800) Scheduled amLODIPine 5 mg Oral Daily insulin lispro 0-3 Units Subcutaneous Q4H CARLY ipratropium-albuteroL 3 mL Nebulization Q4H chlorhexidine 15 mL Oral BID famotidine 20 mg Per NG tube BID dexAMETHasone inj 8 mg Intravenous Q8H CARLY heparin (porcine) 5,000 Units Subcutaneous Q8H CARLY insulin lispro 2-12 Units Subcutaneous Q4H CARLY dilTIAZem 90 mg Per NG tube Q6H CARLY multivitamin with minerals 1 tablet Per NG tube Daily polyethylene glycoL (MIRALAX) oral powder 17 g Oral Daily docusate sodium 100 mg Per NG tube BID And sennosides 17.6 mg Per NG tube BID PRN potassium chloride in water OR potassium chloride in water OR potassium chloride in water, labetaloL, acetaminophen, glucose 40% oral geL OR dextrose OR glucagon, bisacodyL, bacitracin zinc-polymyxin B, gelatin compressed, thrombin (Bovine) Anthropometrics: Admit Weight: 88.45 kg Estimated body mass index is 38.41 kg/m?? as calculated from the following: Height as of 09/21/24: 152.4 cm (5'). Weight as of this encounter: 89.2 kg (196 lb 10.4 oz). [place] Body Weight (IBW) (kg): 45.45 Wt Readings from Last 10 Encounters: 09/23/24 89.2 kg (196 lb 10.4 oz) 09/21/24 91.3 kg (201 lb 4.5 oz) 09/18/24 91.5 kg (201 lb 11.5 oz) 07/28/24 85.3 kg (188 lb) 05/24/24 81.6 kg (180 lb) 05/08/24 84.1 kg (185 lb 6.4 oz) 05/08/24 82 kg (180 lb 12.4 oz) 04/23/24 83.9 kg (185 lb) 03/03/24 85 kg (187 lb 6.3 oz) 11/14/23 87.2 kg (192 lb 3.2 oz) Patient Vitals for the past 168 hrs: Weight 09/23/24 0400 89.2 kg (196 lb 10.4 oz) 09/22/24 0600 89 kg (196 lb 3.4 oz) 09/21/24 0400 91.3 kg (201 lb 4.5 oz) 09/20/24 0400 91.7 kg (202 lb 2.6 oz) 09/19/24 0500 93 kg (205 lb 0.4 oz) 09/18/24 0500 91.5 kg (201 lb 11.5 oz) 09/17/24 0600 88.7 kg (195 lb 8.8 oz) 09/16/24 2208 88.7 kg (195 lb 8.8 oz) 09/16/24 1258 88.5 kg (195 lb) Weight Source: Bed Estimated / Assessed Needs: Kcal / K - 1597 Kcal (14 Kcal/Kg - 18 Kcal/Kg) Estimated Protein Needs: 91 g - 114 g (2.0 g/Kg - 2.5 g/Kg IBW) Nutrition intake and intake history / interview: 09/23: TF held for possible extubation today, restarted this afternoon. Reassessed needs, TF recs updated. 09/21: Pt extubated and reintubated today, restarted on propofol. TF held. 09/17: Cx for TF recs. Per chart, wt has been fluctuating 82-89 kg x 10 months. No data found. Nutrition Focused Physical Exam: Not performed (Pt is 1 day post-op - concerns for pain that would be exacerbated by NFPE) Reason NFPE Not Performed: Clinical condition preventing accurate assessment. Malnutrition Diagnosis: Not enough data to assess (Mari et al, JPEN J Parenteral Enteral Nutr. 2011; 36(3): 273-83) Nutrition to continue to follow up while inpatient Thank you, Sherine Santana, MS, RD, LD, [facility] Clinical Nutrition * Rob Guzman MD - 09/23/2024 7:22 AM EDT [facility] [place] NEUROSURGERY PROGRESS NOTE ID: Lucero Bruno 74 y.o. female : 1950 LOS: 7 Neurosurgical Procedures this Admission: 09/16/24, Dr. Espinal: R craniotomy for IPH evacuation INTERVAL Hx: NAEON. Neurostable this am MEDICATIONS: Scheduled Meds: magnesium sulfate 2 g Intravenous Once amLODIPine 5 mg Oral Daily insulin lispro 0-3 Units Subcutaneous Q4H CARLY ipratropium-albuteroL 3 mL Nebulization Q4H chlorhexidine 15 mL Oral BID famotidine 20 mg Per NG tube BID dexAMETHasone inj 8 mg Intravenous Q8H CARLY heparin (porcine) 5,000 Units Subcutaneous Q8H CARLY insulin lispro 2-12 Units Subcutaneous Q4H CARLY dilTIAZem 90 mg Per NG tube Q6H CARLY multivitamin with minerals 1 tablet Per NG tube Daily polyethylene glycoL (MIRALAX) oral powder 17 g Oral Daily docusate sodium 100 mg Per NG tube BID And sennosides 17.6 mg Per NG tube BID Continuous Infusions: tube feeding diet dexmedeTOMIDine 0.4 mcg/kg/hr (09/24/24 0623) PRN: potassium chloride ER, 40 mEq, Q4H PRN Or potassium chloride ER, 20 mEq, Q4H PRN labetaloL, 10-20 mg, Q2H PRN acetaminophen, 650 mg, Q6H PRN glucose 40% oral geL, 15-30 g of glucose, Q15 Min PRN Or dextrose, 250 mL, Q15 Min PRN Or glucagon, 1 mg, Q15 Min PRN bisacodyL, 10 mg, Daily PRN bacitracin zinc-polymyxin B, , PRN gelatin compressed, , PRN thrombin (Bovine), , PRN EXAM: Temp: [36.6 ??C (97.9 ??F)-37.3 ??C (99.1 ??F)] Heart Rate: [60-82] Resp: [18-27] BP: (100-149)/(47-73) SpO2: [90 %-96 %] Heart Rate from SpO2: [60 bpm-82 bpm] I/O: Intake/Output Summary (Last 24 hours) at 09/24/2024 0718 Last data filed at 09/24/2024 0623 Gross per 24 hour Intake 1508.7 ml Output 2325 ml Net -816.3 ml Drains: AUBREY out 09/21 GEN: Intubated NEURO: A/ox3 with yes/no questions via thumbs up/thumbs down (name/year/place) R pupil 3mm, reactive L eye down, possible down and lateral deviation, reactive MOTOR: RUE: FC, thumbs up LUE: extends to noxious stimuli (baseline since pre-op) RLE: FC, wiggles toes LLE: WD L hemianesthesia incision CDI - stacey LABS: Recent Labs 09/24/24 0500 09/23/24 0101 09/22/24 0126 WBC 19.25* 19.97* 16.65* HGB 9.7* 10.0* 9.9* PLATELET 342 293 274 Recent Labs 09/24/24 0500 09/23/24 1623 09/23/24 0756 09/23/24 0101 09/22/24 0126 NA 138 -- -- 138 139 K 4.2 4.3 3.9 3.9 4.0 CL 102 -- -- 103 104 CO2 26 -- -- 25 23 BUN 28* -- -- 26* 26* CREATININE 0.51* -- -- 0.47* 0.53* No results for input(s): PT, INR in the last 72 hours. IMAGING: Results for orders placed or performed during the hospital encounter of 09/16/24 CT Head wo Contrast (Generic) (Exam End: 09/16/2024 5:26 PM) Result Value WORKSTATION ID [id number] Impression Interval expansion of now large right-sided temporal occipital intraparenchymal hemorrhage with significant mass effect resulting in 1 cm leftward midline shift. Per chart review, this patient was seen by neurosurgery and taken emergently to the OR. I have personally reviewed the image(s) and the resident's interpretation and agree with the findings, Lana Reinoso at 09/16/2024 6:01 PM Thank you for letting us participate in the care of this patient. If you are a health care provider and have any questions regarding this report, please contact the number below. For patients who have questions please contact the health ocular care technician that requested your imaging first. Electronically signed by: Lana Reinoso [facility] ([phone]), at 09/16/2024 6:[address] Head wo Contrast (Generic) (Exam End: 09/16/2024 11:21 PM) Result Value WORKSTATION ID [id number] Impression CT head: 1. Interval craniotomy with residual or recurrent hemorrhage right temporal and parietal lobe. 2. New hemorrhage right [...] in the care of this patient. If you are a health care provider and have any questions regarding this report, please contact the number below. For patients who have questions please contact the health ocular care technician that requested your imaging first. Electronically signed by: Armando Pan MD, [facility] ([phone]), at 09/17/2024 1:[address] Venogram Brain (Exam End: 09/16/2024 11:21 PM) Result Value WORKSTATION ID [id number] Impression CT head: 1. Interval craniotomy with residual or recurrent hemorrhage right temporal and parietal lobe. 2. New hemorrhage right [...] in the care of this patient. If you are a health care provider and have any questions regarding this report, please contact the number below. For patients who have questions please contact the health ocular care technician that requested your imaging first. Electronically signed by: Armando Pan MD, [facility] ([phone]), at 09/17/2024 1:42 AM XR Chest One View (Exam End: 09/16/2024 11:00 PM) Result Value WORKSTATION ID [id number] Impression Satisfactorily positioned enteric and endotracheal tubes. Left lower lobe atelectasis versus pneumonia. Thank you for letting us participate in the care of this patient. If you are a health care provider and have any questions regarding this report, please contact the number below. For patients who have questions please contact the health ocular care technician that requested your imaging first. Electronically signed by: Pamela Beard MD, [facility] ([phone]), at 09/17/2024 12:09 AM XR Abdomen 1 view (Generic) (Exam End: 09/16/2024 11:00 PM) Result Value WORKSTATION ID [id number] Impression Satisfactorily positioned enteric and endotracheal tubes. Left lower lobe atelectasis versus pneumonia. Thank you for letting us participate in the care of this patient. If you are a health care provider and have any questions regarding this report, please contact the number below. For patients who have questions please contact the health ocular care technician that requested your imaging first. Electronically signed by: Pamela Beard MD, [facility] ([phone]), at 09/17/2024 12:[address] Head wo Contrast (Generic) (Exam End: 09/17/2024 4:51 AM) Result Value WORKSTATION ID [id number] Impression Increased size and density of dominant right parietal hematoma, and of hemorrhage extending medially into the basal ganglia. Foci of thalamocapsular hemorrhage on the right are stable. No evidence of progressive intraventricular hemorrhage or ventricular dilation. No definitive increase in leftward midline shift or herniation. Thank you for letting us participate in the care of this patient. If you are a health care provider and have any questions regarding this report, please contact the number below. For patients who have questions please contact the health ocular care technician that requested your imaging first. Electronically signed by: Elvin Bolden DO, [facility] ([phone]), at 09/17/2024 8:38 AM XR Chest One View (Exam End: 09/17/2024 2:13 PM) Result Value WORKSTATION ID [id number] Impression 1. No focal opacity in lung 2. Pulmonary edema, progressed since last examination. 3. Tip of ET tube is 23 mm superior cuff to jonathan. Consider adjustment. 4. Sidehole and tip of NG tube is below the diaphragm. Thank you for letting us participate in the care of this patient. If you are a health care provider and have any questions regarding this report, please contact the number below. For patients who have questions please contact the health ocular care technician that requested your imaging first. Electronically signed by: Zoey Zabala MD, [facility] ([phone]), at 09/17/2024 2:43 PM XR Chest One View (Exam End: 09/18/2024 8:43 AM) Result Value WORKSTATION ID [id number] Impression Tubes and lines as described. Blunting of the left costophrenic angle suggests tiny layering left effusion with associated left basilar consolidation/atelectasis Thank you for letting us participate in the care of this patient. If you are a health care provider and have any questions regarding this report, please contact the number below. For patients who have questions please contact the health ocular care technician that requested your imaging first. Abdomen 1 view (Generic) (Exam End: 09/18/2024 12:31 PM) Result Value WORKSTATION ID [id number] Impression Dobbhoff tube tip along the greater curve of the stomach. Thank you for letting us participate in the care of this patient. If you are a health care provider and have any questions regarding this report, please contact the number below. For patients who have questions please contact the health ocular care technician that requested your imaging first. Brain wwo Contrast (Generic) (Exam End: 09/19/2024 5:43 PM) Result Value WORKSTATION ID [id number] Impression Unchanged size of large right cerebral hemisphere ICH status post partial evacuation. Numerous small foci of decreased acute infarction both along and separate from the site of hemorrhage. These foci are present in both cerebral hemispheres and have a pattern most consistent with embolic infarction. No evidence of [employer]BI[employer] DES[employer] malignancy Thank you for letting us participate in the care of this patient. If you are a health care provider and have any questions regarding this report, please contact the number below. For patients who have questions please contact the health ocular care technician that requested your imaging first. Electronically signed by: Rios Swartz MD, [facility] ([phone]), at 09/20/2024 8:[address] Head wo Contrast (Generic) (Exam End: 09/21/2024 3:50 AM) Result Value WORKSTATION ID [id number] Impression Stable hemorrhage right temporal, parietal, right posterior limb internal capsule and right thalamus. Mild progression of vasogenic edema adjacent to hemorrhage. Similar pattern and extent of local and generalized mass effect with stable subfalcine herniation and uncal herniation. Thank you for letting us participate in the care of this patient. If you are a health care provider and have any questions regarding this report, please contact the number below. For patients who have questions please contact the health ocular care technician that requested your imaging first. Electronically signed by: Armando Pan MD, [facility] ([phone]), at 09/21/2024 4:55 AM XR Abdomen 1 view (Generic) (Exam End: 09/21/2024 2:01 PM) Result Value WORKSTATION ID [id number] Impression Dobbhoff tube and enteric tube sidehole and tip is projecting over the expected location of the stomach. I have personally reviewed the image(s) and the resident's interpretation and agree with the findings, Shraddha Cox MD at 09/21/2024 3:40 PM Thank you for letting us participate in the care of this patient. If you are a health care provider and have any questions regarding this report, please contact the number below. For patients who have questions please contact the health ocular care technician that requested your imaging first. Electronically signed by: Shraddha Cox MD, [facility] ([phone]), at 09/21/2024 3:40 PM XR Chest One View (Exam End: 09/21/2024 2:01 PM) Result Value WORKSTATION ID [id number] Impression ET tube with tip projecting approximately 1.4 cm above the jonathan. Recommend retracting approximately 2 cm and follow-up imaging. New left basilar atelectasis and/or small pleural effusion. Aspiration or pneumonia could also this appearance. I Sacha Shipley MD discussed the results (Impression #1) with Bonnie Vazquez on 09/21/2024 4:42 PM and verified that the results were understood. I have personally reviewed the image(s) and the resident's interpretation and agree with the findings, Octavio Scott MD at 09/21/2024 5:09 PM Thank you for letting us participate in the care of this patient. If you are a health care provider and have any questions regarding this report, please contact the number below. For patients who have questions please contact the health ocular care technician that requested your imaging first. Electronically signed by: Octavio Scott MD, [facility] ([phone]), at 09/21/2024 5:[address] Head wo Contrast (Generic) (Exam End: 09/22/2024 4:02 AM) Result Value WORKSTATION ID [id number] Impression Stable head CT status post removal of subcutaneous drain. No new or enlarging hemorrhage. Stable pattern of mass effect Thank you for letting us participate in the care of this patient. If you are a health care provider and have any questions regarding this report, please contact the number below. For patients who have questions please contact the health ocular care technician that requested your imaging first. Electronically signed by: Armando Pan MD, [facility] ([phone]), at 09/22/2024 4:31 AM Assessment: 74 y.o. female with PMHx notable for Afib (taking ASA, previously on apixaban-stopped taking after IPH in April 2024), CHRISTOPHER, HLD, BMI of 36, prior IPH 04/2024 who presented to hospital 09/16/24 for placement of Watchman with cardiology. She developed headaches and nausea post op and CT scan noted large R [id number]-jmrrvulzd IPH. Now s/p 09/16/24, Dr. Espinal: R craniotomy for IPH evacuation. Repeated CTH wo contrast post-op overnight into 09/17 showing increased hemorrhage on R but exam remains stable. Will defer further neurosurgical intervention at this time and continue to closely monitor exam. Contusions are likely to evolve in coming days with increased edema so advise hypernatremia with Na goal 140-150. 09/18 AM noted L eye down, possible out. MRI Brain wwo on 09/19 showing small scattered infarcts c/w embolic infarcts no brainstem infarcts nor any that would explain possible palsy. Attempt to extubate on 09/21 met with expeditious re-intubation. Wean vent and sedation as tolerated. Plan: -Wean sedation and wean to extubate as able -Q1h neuro checks, while intubated -MRI Brain wwo done -SBP 90-160 -DVT ppx with SCDs, SQH -Hold antiplatelets/anticoagulants -Na goal 140-150 -Rest of care per primary For questions please call NSGY pager [phone] Rob Guzman MD Clinical Documentation Improvement: Active Hospital Problems Diagnosis Presence of Watchman left atrial appendage closure device Resolved Hospital Problems No resolved problems to display. * Gayle Daniel RCP - 09/23/2024 5:33 AM EDT AMV Protocol: Yes SBT Protocol: Yes SBT: Passed Vent Settings: Ventilator Mode: PS/CPAP PEEP Set: 8 FiO2: 35 % PSV: 5 Ventilator Measurements: Resp: (!) 31 Vt Spontaneous: 493 Ve: 15.5 SpO2: 94 % EtCO2: 24 mmHg Airway: 7.5 @ 22 cm at the Teeth. Skin Integrity: WDL Nebulized Medications: Albuterol & Ipratroprium Q4 Breath Sounds: coarse Secretions: small, white, thick Assessment / Events / Plan of the Day: Received pt on above settings. Events: Pt passed SBT on PSV 0/5 35%, pt did not have a cuff leak after SBT (CCS aware). Pt weaned to PSV 5/5 35% after SBT. Plan: Continue AMV/ SBT protocol; wean vent settings as tolerated. Gayle Daniel RCP * Brianne Bonilla, RT - 09/22/2024 3:25 PM EDT Illness Severity Stable Respiratory Modalities: PS/CPAP 5/+8, 35 % Airway: 7.5 @ 22 Teeth Patient Summary Admitted: 09/16/2024 Age: 74 y.o. Code Status: FULL. HPI: Presents to [facility] for watchman procedure and developed a large R ICH post-op that required intubation for airway protection and emergent R craniotomy for evacuation PMHx: prior R occipital ICH, a-fib Events w/ date: 09/21 - Appreciated cuff leak, tongue does not seem as edematous as last two days. Extubated patient to GA, patient with moderate amount of secretions attempted to NT sx unable to pass suction catheter through L nare, oropharyngeal sx for moderate amounts of thick secretions. Increase WOB noted andhigher O2 requirement on NRB pt reintubated. Anes intubated with D blade. PSV 8/+8 09/22- Received patient orally intubated and mechanically ventilated in PSV 5/8 & 35%, no ventilator changes made this shift. Continue to support. Action List Medications/ACT: Duo Q4 * Kymberly Baptiste, PT - 09/22/2024 11:54 AM EDT Physical Therapy Evaluation Patient profile: Lucero Bruno ( ) is a 74 y.o. 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 Past Surgical History: Procedure Laterality Date PRG ECHOENCEPHALOGRAPH REAL TIME Right 09/16/2024 ULTRASOUND USE (WRVU 0.63) performed by Sushila Espinal MD at [facility] OR PRO LAPAROSCOPY W TOT HYSTERECTUTERUS <=250 GRAM W TUBE/OVARY N/A 04/23/2024 LAPAROSCOPY, TOTAL HYST, UTERUS<250GMS, REM TUBE &/OR OVARY (WRVU 15) performed by Xiomara Burkett MD at [facility] PRO OPEN SKULL EVAC INTRACEREBR BLOOD Right 09/16/2024 @CRANI-HEMATOMA EVACUATION, INTRACEREBRAL (WRVU 28.09) performed by Sushila Espinal MD at [facility] Social History: per previous hospitalization 04/2024 Patient reports she lives alone with her two cats in a 2 level home with a basement. Patient reports her needs are met on the main level, including laundry. Her bathroom includes a tub shower with grab bars. Residence has 2 small ZAIN. At her baseline, patient is independent in all aspects. 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 Patient reports she enjoys her 1/2 acre of flower beds. Falls: None Precautions/Special Considerations: at risk to fall, SBP<140, MAP>65, mechanical vent, RUE restraint Lines: PIV, ETT, tele, central line, hill catheter, DHT Activity Orders: AAT Diet: NPO Mobility and Positioning Recommendations: Pt. to utilize bed-chair features for upright positioning throughout the day. Subjective: intubated orally. Can answer yes/no questions fairly accurately with thumbs up/down Objective: Pt seen for evaluation today. Pain: No c/o pain Vital Signs: At Rest SpO2 (PS 8/5 35% FiO2) 95% BP 110/55 HR 68bpm Mental Status: alert, slightly anxious but easily redirected. Follows commands within physical abilities. Oriented to self and place, reoriented to date and situation. Skin: appears intact, L hand and foot both edematous Musculoskeletal: ROM: PROM WFL, AROM limited d/t L sided weakness Strength: 3/5 RLE strength, inconsistent PF/DF on L, ~2/5, unable to elicit quad or hip activation Sensation: diminished LT sensation on L Bed Mobility: transitioned to upright with bed-chair features. Tolerated well from VS standpoint. Significant L lateral trunk lean despite frequent repositioning Transfers: Sit to Stand: NA Stand to Sit: NA Bed to Chair: NA; will require mech lift Gait: NA Stairs: NA Balance: Sitting Static: poor, significant L lateral trunk lean Sitting Dynamic: poor Standing Static: NA Standing Dynamic / Gait: NA Education: patient has been educated on Bed mobility, Positioning, Safety , and Role of therapy andwill benefit from reinforcement. Patient status, treatment, and mobility recommendations discussed with nursing. Assessment: Lucero Bruno was seen today for physical therapy evaluation. Pt presented to [facility] for watchman procedure subsequently developing a large R ICH requiring intubation for airway protection, heparin reversal with protamine and emergent OR for craniotomy and hematoma evacuation. Pt was alert and cooperative today, although was slightly anxious at times and required redirection. She was able to follow most commands and responds to yes/no questions using gestures. She tolerated bed-chair positioning for ~12 mins during session. Upon evaluation, patient presents with decreased strength, decreased ROM, impaired sensation, impaired balance, impaired activity tolerance, impaired gas exchange, impaired gait mechanics, impaired endurance, hemodynamic instability, impaired attention, impaired safety awareness, impaired posture, and decreased insight, resulting in functional limitation. As pt's respiratory status stabilizes, will progress activity as able and further assess for d/c recommendations. The pt would benefit from skilled therapy services while in the hospital to maximize functional abilities. Discharge Recommendations: Based on the current findings, Anticipated Discharge Disposition (PT): to be determined pending medical status & functional progression when medically ready for hospital discharge. Discharge recommendation is based on the patient's current physical impairments, prior functional status, potential to return to prior level of function, patient motivation, reported home support, potential for functional gains, current level of endurance, reported home environment and anticipated trajectory of progress and may change based on patient progress during this hospitalization. Consult Recommendations: No other consults recommended at this time. Equipment needs: Anticipated Equipment Needs at Discharge (PT): to be determined Goals: To be achieved by 10/13/24: Pt. to demonstrate knowledge of safety limitations and precautions and will appropriately request assistance for functional activities and to mobilize. Pt. to perform bed mobility with mod A. Pt will maintain seated balance at EOB with min A x5 mins. Pt. Will tolerate mech lift OOB to recliner chair. Family or caregiver to demonstrate understanding of therapeutic interventions to support the care of the patient. Pt will tolerate progression towards upright with stable vital signs. Plan: Therapy Frequency (PT): 2-3 times/wk for therapy including balance training, bed mobility training, gait training, motor coordination training, neuromuscular re-education, patient/family education, postural re-education, range of motion, stair training, strengthening, transfer training, and wh eelchair managment/propulsion training. Patient/family understand and agree with plan as stated above. 2017 PT Evaluation Code Rationale: Diagnosis & Pertinent Co-Morbidities, personal factors, and present illness affecting Plan of Care: (see above); Additional personal factors or co- morbidities that impact plan: Total # of Factors: 0 1-2 3+ X Examination of body system impairments, functional limitations and behaviors, and/or participation restrictions. Addressing 1-2 elements Addressing 3 + elements X Addressing 4 + elements Clinical presentation: See assessment above. Stable/Uncomplicated Evolving/Fluctuating Symptoms Unstable/Unpredictable X- mech ventilation, L hemiparesis Clinical decision making of moderate complexity based on pt's functional performance as outlined inthis evaluation. Time IN / OUT: [id number] Total Minutes, Physical Therapy: 18 Billing Code: mod complexity eval Kymberly Baptiste, PT, DPT, NCS Pager: [phone] Physical Therapy Inpatient Rehabilitation Department * Mariola Calixto MD - 09/22/2024 11:08 AM EDT ICU PROGRESS NOTE DOA: 09/16/2024 Room: [address] [place], [place] [address] Length of Stay: 6 ICU Length of Stay 5d 13h Lucero Bruno ( ) is a 74 y.o. 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 Over night events: reintubation for secretions, drain pulled Medications: Scheduled Meds: insulin lispro 0-3 Units Subcutaneous Q4H CARLY ipratropium-albuteroL 3 mL Nebulization Q4H chlorhexidine 15 mL Oral BID famotidine 20 mg Per NG tube BID dexAMETHasone inj 8 mg Intravenous Q8H CARLY heparin (porcine) 5,000 Units Subcutaneous Q8H CARLY insulin lispro 2-12 Units Subcutaneous Q4H CARLY dilTIAZem 90 mg Per NG tube Q6H CARLY multivitamin with minerals 1 tablet Per NG tube Daily polyethylene glycoL (MIRALAX) oral powder 17 g Oral Daily docusate sodium 100 mg Per NG tube BID And sennosides 17.6 mg Per NG tube BID Continuous Infusions: NORepinephrine Stopped (09/22/24 0540) tube feeding diet 55 mL/hr at 09/22/24 1000 dexmedeTOMIDine 0.4 mcg/kg/hr (09/22/24 1000) PRN Meds:.labetaloL, acetaminophen, glucose 40% oral geL OR dextrose OR glucagon, bisacodyL, bacitracin zinc-polymyxin B, gelatin compressed, thrombin (Bovine) Vitals: Temp: [36.8 ??C (98.2 ??F)-37.2 ??C (99 ??F)] Heart Rate: [56-89] Resp: [15-26] BP: (76-144)/(36-85) SpO2: [93 %-100 %] Heart Rate from SpO2: [56 bpm-89 bpm] Ventilator Settings: PS 10/5 30% Physical Exam: Cons: NAD Cardiac: RRR S1S2 Pulm: CTAB, no W/R/R GI: S/NT/ND, BS+ MSK: WWP, no C/C/E Neuro Exam: MS - awake alert, interactive CN intact BUE purposeful, not FC BLE WD I/Os: Intake/Output Summary (Last 24 hours) at 09/22/2024 1108 Last data filed at 09/22/2024 1000 Gross per 24 hour Intake 2061.5 ml Output 1350 ml Net 711.5 ml Labs: Last 3 wbc, hgb, hct plt Recent Labs 09/22/24 0126 09/21/24 0021 09/20/24 0009 WBC 16.65* 14.84* 13.82* HGB 9.9* 8.9* 8.9* HCT 29.4* 27.2* 26.9* PLATELET 274 217 191 Last 3 Lytes Recent Labs 09/22/24 0126 09/21/24 0021 09/20/24 0009 NA 139 141 139 K 4.0 4.2 4.2 CL 104 107 107 CO2 23 23 22 BUN 26* 30* 23* CREATININE 0.53* 0.54* 0.52* Last 3 LFTs Recent Labs 05/08/24 0121 05/07/24 0157 05/06/24 0951 AST 15 13 16 ALT 14 14 16 ALKPHOS 92 91 97 BILITOT 0.4 0.3 0.4 BILIDIR 0.1 <0.1 -- Last Ca, Mg, Phos Recent Labs 09/22/24 0126 CALCIUM 8.8 PHOS 3.7 MAGNESIUM 0.87 Last 3 Coags Recent Labs 09/18/24 0615 09/18/24 0020 09/17/24 1723 PT 12.3 12.8* 12.1 INR 1.1 1.1 1.1 PTT Last 3 TFT Recent Labs 05/06/24 0548 TSH 0.99 Last 3 Lipids Recent Labs 09/20/24 0009 09/17/24 0039 09/16/24 1707 05/06/24 0548 CHLPL -- 203 -- 135 HDL -- 45 -- 46 LDLCHOL -- -- -- 69 LDLDIRECT -- 133 -- -- TRIG 95 147 174 101 Last 3 HgbA1C Recent Labs 09/17/24 0039 05/06/24 0548 HA1C 6.1* 6.0* CT reviewed - drain out, hemorrhage stable CXR reviewed LLL opacity - atelectasis vs effusion vs consolidation Labs reviewed by me - elevated wbc, H/H low and uptrending, slight elevation in BUN Imaging/Studies: - I have reviewed the recent CT - stable hemorrhage, increased amount of edema and persistent IVH Assessment/Plan: Neuro - R occipitoparietal ICH with cerebral edema, mass affect and brain compression s/p R craniotomy. 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 - q1 neurochecks - SBP < 140 - Analgesia: tylenol, PRN fentanyl - Sedation: precedex since Friday, 09/18 - MRI completed CV - Rate controlled afib s/p watchman device - BP as above - c/w diltiazem for rate control - if MAP sustained < 65, IVF, consider pressors - Transition from Clevidipine to minimize volume -start amlodipine 160 to enable clevidipine wean Pulm - Reintubated, doing well, continue steroids GI - Dysphagia - TF via OGT - maintain bowel reg - GI ppx with H2B FEN/ - - Goal eunatremia, HTS if neurologically deteriorates - ICU potassium repletion protocol - Hill for strict I/Os Heme - - goal Hgb > 7, INR < 1.5, Platelets > 100k - SCDs, chemoppx contraindicated Endo - - goal glucose 120-180 --> Accuchecks and ISS ID - Afebrile, reactive leukocytosis -consider for pna diagnosis, will send PCR, follow closely - Monitor off antibiotics - Reculture q72hr for temp > 101F --> UA, blood cx, sputum cx, CXR - acetaminophen PRN Core: Code status: FULL Dispo - ICU //////////////////////////////////////////////////////////////////////////////// //////////////////// /////////////////////////////////////////////////Attestation: IS PATIENT CRITICALLY ILL? Is there a high potential of sudden, clinically significant, or life threatening deterioration? Yes Is there a need for direct personal assessment and management to treat/prevent multiple vital organfailure/deterioration? Yes I personally performed 40 minutes of aggregate critical care time exclusive of procedures and teaching. This includes time spent during direct patient evaluation and reassessment, interpreting diagnostic tests, directing life and/or organ supporting interventions and documentation on the unit. Mariola Calixto MD 09/22/2024 11:08 AM * Dodie Deleon MD - 09/22/2024 6:42 AM EDT [facility] NEUROSURGERY PROGRESS NOTE ID: Lucero Bruno 74 y.o. female : 1950 LOS: 6 Neurosurgical Procedures this Admission: 09/16/24, Dr. Espinal: Mary craniotomy for IPH evacuation INTERVAL Hx: -Extubated then re-intubated yesterday 09/21 -AUBREY out; post CTH this morning done -Neuro this morning is stable MEDICATIONS: Scheduled Meds: insulin lispro 0-3 Units Subcutaneous Q4H CARLY ipratropium-albuteroL 3 mL Nebulization Q4H chlorhexidine 15 mL Oral BID famotidine 20 mg Per NG tube BID dexAMETHasone inj 8 mg Intravenous Q8H CARLY heparin (porcine) 5,000 Units Subcutaneous Q8H CARLY insulin lispro 2-12 Units Subcutaneous Q4H CARLY dilTIAZem 90 mg Per NG tube Q6H CARLY multivitamin with minerals 1 tablet Per NG tube Daily polyethylene glycoL (MIRALAX) oral powder 17 g Oral Daily docusate sodium 100 mg Per NG tube BID And sennosides 17.6 mg Per NG tube BID Continuous Infusions: NORepinephrine Stopped (09/22/24 0540) tube feeding diet 1,100 mL (09/22/24 0807) dexmedeTOMIDine 0.2 mcg/kg/hr (09/22/24 0800) PRN: labetaloL, 10-20 mg, Q2H PRN acetaminophen, 650 mg, Q6H PRN glucose 40% oral geL, 15-30 g of glucose, Q15 Min PRN Or dextrose, 250 mL, Q15 Min PRN Or glucagon, 1 mg, Q15 Min PRN bisacodyL, 10 mg, Daily PRN bacitracin zinc-polymyxin B, , PRN gelatin compressed, , PRN thrombin (Bovine), , PRN EXAM: Temp: [36.8 ??C (98.2 ??F)-37.2 ??C (99 ??F)] Heart Rate: [56-89] Resp: [15-26] BP: (76-144)/(36-85) SpO2: [93 %-100 %] Heart Rate from SpO2: [56 bpm-89 bpm] I/O: Intake/Output Summary (Last 24 hours) at 09/22/2024928 Last data filed at 09/22/2024 0800 Gross per 24 hour Intake 1898 ml Output 1425 ml Net 473 ml Drains: AUBREY out 09/21 GEN: Intubated NEURO: A/ox3 with yes/no questions via thumbs up/thumbs down (name/year/place) R pupil 3mm, reactive L eye down, possible down and lateral deviation, reactive MOTOR: RUE: FC, thumbs up LUE: extends to noxious stimuli (baseline since pre-op) RLE: FC, wiggles toes LLE: WD L hemianesthesia incision CDI - stacey LABS: Recent Labs 09/22/2412509/21/242009/20/248 WBC 16.65* 14.84* 13.82* HGB 9.9* 8.9* 8.9* PLATELET 274 217 191 Recent Labs 10/30/24 0126 10/29/24 0021 10/28/24 0009 NA 139 141 139 K 4.0 4.2 4.2 CL 104 107 107 CO2 23 23 22 BUN 26* 30* 23* CREATININE 0.53* 0.54* 0.52* No results for input(s): PT, INR in the last 72 hours. IMAGING: Results for orders placed or performed during the hospital encounter of 09/16/24 CT Head wo Contrast (Generic) (Exam End: 09/16/2024 5:26 PM) Result Value WORKSTATION ID [id number] Impression Interval expansion of now large right-sided temporal occipital intraparenchymal hemorrhage with significant mass effect resulting in 1 cm leftward midline shift. Per chart review, this patient was seen by neurosurgery and taken emergently to the OR. I have personally reviewed the image(s) and the resident's interpretation and agree with the findings, Lana Reinoso at 09/16/2024 6:01 PM Thank you for letting us participate in the care of this patient. If you are a health care provider and have any questions regarding this report, please contact the number below. For patients who have questions please contact the health ocular care technician that requested your imaging first. Electronically signed by: Lana Reinoso, [facility] ([phone]), at 09/16/2024 6:[address] Head wo Contrast (Generic) (Exam End: 09/16/2024 11:21 PM) Result Value WORKSTATION ID [id number] Impression CT head: 1. Interval craniotomy with residual or recurrent hemorrhage right temporal and parietal lobe. 2. New hemorrhage right [...] in the care of this patient. If you are a health care provider and have any questions regarding this report, please contact the number below. For patients who have questions please contact the health ocular care technician that requested your imaging first. Electronically signed by: Armando Pan MD, [facility] ([phone]), at 09/17/2024 1:[address] Venogram Brain (Exam End: 09/16/2024 11:21 PM) Result Value WORKSTATION ID [id number] Impression CT head: 1. Interval craniotomy with residual or recurrent hemorrhage right temporal and parietal lobe. 2. New hemorrhage right [...] in the care of this patient. If you are a health care provider and have any questions regarding this report, please contact the number below. For patients who have questions please contact the health ocular care technician that requested your imaging first. Electronically signed by: Armando Pan MD, [facility] ([phone]), at 09/17/2024 1:42 AM XR Chest One View (Exam End: 09/16/2024 11:00 PM) Result Value WORKSTATION ID [id number] Impression Satisfactorily positioned enteric and endotracheal tubes. Left lower lobe atelectasis versus pneumonia. Thank you for letting us participate in the care of this patient. If you are a health care provider and have any questions regarding this report, please contact the number below. For patients who have questions please contact the health ocular care technician that requested your imaging first. Electronically signed by: Pamela Beard MD, [facility] ([phone]), at 09/17/2024 12:09 AM XR Abdomen 1 view (Generic) (Exam End: 09/16/2024 11:00 PM) Result Value WORKSTATION ID [id number] Impression Satisfactorily positioned enteric and endotracheal tubes. Left lower lobe atelectasis versus pneumonia. Thank you for letting us participate in the care of this patient. If you are a health care provider and have any questions regarding this report, please contact the number below. For patients who have questions please contact the health ocular care technician that requested your imaging first. Electronically signed by: Pamela Beard MD, [facility] ([phone]), at 09/17/2024 12:[address] Head wo Contrast (Generic) (Exam End: 09/17/2024 4:51 AM) Result Value WORKSTATION ID [id number] Impression Increased size and density of dominant right parietal hematoma, and of hemorrhage extending medially into the basal ganglia. Foci of thalamocapsular hemorrhage on the right are stable. No evidence of progressive intraventricular hemorrhage or ventricular dilation. No definitive increase in leftward midline shift or herniation. Thank you for letting us participate in the care of this patient. If you are a health care provider and have any questions regarding this report, please contact the number below. For patients who have questions please contact the health ocular care technician that requested your imaging first. Electronically signed by: Elvin Bolden DO, [facility] ([phone]), at 09/17/2024 8:38 AM XR Chest One View (Exam End: 09/17/2024 2:13 PM) Result Value WORKSTATION ID [id number] Impression 1. No focal opacity in lung 2. Pulmonary edema, progressed since last examination. 3. Tip of ET tube is 23 mm superior cuff to jonathan. Consider adjustment. 4. Sidehole and tip of NG tube is below the diaphragm. Thank you for letting us participate in the care of this patient. If you are a health care provider and have any questions regarding this report, please contact the number below. For patients who have questions please contact the health ocular care technician that requested your imaging first. Electronically signed by: Zoey Zabala MD, [facility] ([phone]), at 09/17/2024 2:43 PM XR Chest One View (Exam End: 09/18/2024 8:43 AM) Result Value WORKSTATION ID [id number] Impression Tubes and lines as described. Blunting of the left costophrenic angle suggests tiny layering left effusion with associated left basilar consolidation/atelectasis Thank you for letting us participate in the care of this patient. If you are a health care provider and have any questions regarding this report, please contact the number below. For patients who have questions please contact the health ocular care technician that requested your imaging first. Abdomen 1 view (Generic) (Exam End: 09/18/2024 12:31 PM) Result Value WORKSTATION ID [id number] Impression Dobbhoff tube tip along the greater curve of the stomach. Thank you for letting us participate in the care of this patient. If you are a health care provider and have any questions regarding this report, please contact the number below. For patients who have questions please contact the health ocular care technician that requested your imaging first. Brain wwo Contrast (Generic) (Exam End: 09/19/2024 5:43 PM) Result Value WORKSTATION ID [id number] Impression Unchanged size of large right cerebral hemisphere ICH status post partial evacuation. Numerous small foci of decreased acute infarction both along and separate from the site of hemorrhage. These foci are present in both cerebral hemispheres and have a pattern most consistent with embolic infarction. No evidence of AUTOMOBILE DESIGNER malignancy Thank you for letting us participate in the care of this patient. If you are a health care provider and have any questions regarding this report, please contact the number below. For patients who have questions please contact the health ocular care technician that requested your imaging first. Electronically signed by: Rios Swartz MD, [facility] ([phone]), at 09/20/2024 8:[address] Head wo Contrast (Generic) (Exam End: 09/21/2024 3:50 AM) Result Value WORKSTATION ID [id number] Impression Stable hemorrhage right temporal, parietal, right posterior limb internal capsule and right thalamus. Mild progression of vasogenic edema adjacent to hemorrhage. Similar pattern and extent of local and generalized mass effect with stable subfalcine herniation and uncal herniation. Thank you for letting us participate in the care of this patient. If you are a health care provider and have any questions regarding this report, please contact the number below. For patients who have questions please contact the health ocular care technician that requested your imaging first. Electronically signed by: Armando Pan MD, [facility] ([phone]), at 09/21/2024 4:55 AM XR Abdomen 1 view (Generic) (Exam End: 09/21/2024 2:01 PM) Result Value WORKSTATION ID [id number] Impression Dobbhoff tube and enteric tube sidehole and tip is projecting over the expected location of the stomach. I have personally reviewed the image(s) and the resident's interpretation and agree with the findings, Shraddha Cox MD at 09/21/2024 3:40 PM Thank you for letting us participate in the care of this patient. If you are a health care provider and have any questions regarding this report, please contact the number below. For patients who have questions please contact the health ocular care technician that requested your imaging first. Electronically signed by: Shraddha Cox MD, [facility] ([phone]), at 09/21/2024 3:40 PM XR Chest One View (Exam End: 09/21/2024 2:01 PM) Result Value WORKSTATION ID [id number] Impression ET tube with tip projecting approximately 1.4 cm above the jonathan. Recommend retracting approximately 2 cm and follow-up imaging. New left basilar atelectasis and/or small pleural effusion. Aspiration or pneumonia could also this appearance. I Sacha Shipley MD discussed the results (Impression #1) with Bonnie Vazquez on 09/21/2024 4:42 PM and verified that the results were understood. I have personally reviewed the image(s) and the resident's interpretation and agree with the findings, Octavio Scott MD at 09/21/2024 5:09 PM Thank you for letting us participate in the care of this patient. If you are a health care provider and have any questions regarding this report, please contact the number below. For patients who have questions please contact the health ocular care technician that requested your imaging first. Electronically signed by: Octavio Scott MD, [facility] ([phone]), at 09/21/2024 5:[address] Head wo Contrast (Generic) (Exam End: 09/22/2024 4:02 AM) Result Value WORKSTATION ID [id number] Impression Stable head CT status post removal of subcutaneous drain. No new or enlarging hemorrhage. Stable pattern of mass effect Thank you for letting us participate in the care of this patient. If you are a health care provider and have any questions regarding this report, please contact the number below. For patients who have questions please contact the health ocular care technician that requested your imaging first. Electronically signed by: Armando Pan MD, [facility] ([phone]), at 09/22/2024 4:31 AM Assessment: 74 y.o. female with PMHx notable for Afib (taking ASA, previously on apixaban-stopped taking after IPH in April 2024), CHRISTOPHER, HLD, BMI of 36, prior IPH 04/2024 who presented to hospital 09/16/24 for placement of Watchman with cardiology. She developed headaches and nausea post op and CT scan noted large R [id number] IPH. Now s/p 09/16/24, Dr. Espinal: R craniotomy for IPH evacuation. Repeated CTH wo contrast post-op overnight into 09/17 showing increased hemorrhage on R but exam remains stable. Will defer further neurosurgical intervention at this time and continue to closely monitor exam. Contusions are likely to evolve in coming days with increased edema so advise hypernatremia with Na goal 140-150. 09/18 AM noted L eye down, possible out. MRI Brain wwo on 09/19 showing small scattered infarcts c/w embolic infarcts no brainstem infarcts nor any that would explain possible palsy. Attempt to extubate on 09/21 met with expeditious re-intubation. Wean vent and sedation as tolerated. Plan: -Wean sedation and wean to extubate as able -Q1h neuro checks, while intubated -MRI Brain wwo done -SBP 90-160 -DVT ppx with SCDs, SQH -Hold antiplatelets/anticoagulants -Na goal 140-150 -Rest of care per primary For questions please call NSGY pager [phone] Dodie Deleon MD Clinical Documentation Improvement: Active Hospital Problems Diagnosis Presence of Watchman left atrial appendage closure device Resolved Hospital Problems No resolved problems to display. * Hank Oquendo RN - 09/22/2024 6:24 AM EDT OUTCOME EVALUATION NOTE: OUTCOME SUMMARY: Rt UE/LE 3+, Lft UE 1+, lft LE 2+, A+O x 4, left eye deviates downward, right eye PERRLA, 3mm in both. CT completed at 0400, per provider no changes. PS, precedex titrated over shift to keep MALISSA 0 to -1, LS clear all quadrants, thin white secretions, PS 40% 8/8 peep BP and MAP decreased under parameters with higher doses of precedex, provider advised, 500 ml NS bolus given, BP improved slightly, levo added as MT, NSR. Generalized edema. OG d/c, DHT in with TF running at 55 ml/hr, hlil in place with clear yellow urine. LBM 09/22/2024 PLAN MOVING FORWARD: SBP goals 90-160 MAP goal changed from >55 to > 65 Neurochecks Q 2hr I+O Q 2 hr BGL Q 4hr VS Q 1 hr INDIVIDUALIZED FALL PREVENTION INTERVENTIONS: Patient-specific fall risk factors per assessment: [current deficits]: history of falls, 2ndary diagnosis, IV therapy and lines, overestimates/forgets limitations Assistance [level of assistance required for transfers and ambulation]: x2 assistance Supervision [direct monitoring required during toileting and ADLs]: x 2 assistance Surveillance [continuous indirect monitoring]: ICU monitoring Patient-specific fall prevention interventions for sensory deficits provided, if applicable: CARE PLAN GOAL OUTCOME EVALUATION: Problem: Adjustment to Illness (Stroke, Ischemic/Transient Ischemic Attack) Goal: Optimal Coping Outcome: Ongoing (Interventions Implemented as Appropriate) Problem: Bowel Elimination Impaired (Stroke, Ischemic/Transient Ischemic Attack) Goal: Effective Bowel Elimination Outcome: Ongoing (Interventions Implemented as Appropriate) Problem: Cerebral Tissue Perfusion (Stroke, Ischemic/Transient Ischemic Attack) Goal: Optimal Cerebral Tissue Perfusion Outcome: Ongoing (Interventions Implemented as Appropriate) Problem: Cognitive Impairment (Stroke, Ischemic/Transient Ischemic Attack) Goal: Optimal Cognitive Function Outcome: Ongoing (Interventions Implemented as Appropriate) Problem: Communication Impairment (Stroke, Ischemic/Transient Ischemic Attack) Goal: Improved Communication Skills Outcome: Ongoing (Interventions Implemented as Appropriate) Problem: Functional Ability Impaired (Stroke, Ischemic/Transient Ischemic Attack) Goal: Optimal Functional Ability Outcome: Ongoing (Interventions Implemented as Appropriate) Problem: Respiratory Compromise (Stroke, Ischemic/Transient Ischemic Attack) Goal: Effective Oxygenation and Ventilation Outcome: Ongoing (Interventions Implemented as Appropriate) Problem: Sensorimotor Impairment (Stroke, Ischemic/Transient Ischemic Attack) Goal: Improved Sensorimotor Function Outcome: Ongoing (Interventions Implemented as Appropriate) Problem: Eating/Swallowing Impairment (Stroke, Ischemic/Transient Ischemic Attack) Goal: Oral Intake without Aspiration Outcome: Ongoing (Interventions Implemented as Appropriate) Problem: Urinary Elimination Impaired (Stroke, Ischemic/Transient Ischemic Attack) Goal: Effective Urinary Elimination Outcome: Ongoing (Interventions Implemented as Appropriate) Problem: Pain Acute Goal: Acceptable Pain Control and Functional Ability Outcome: Ongoing (Interventions Implemented as Appropriate) Problem: Bleeding (Surgery Nonspecified) Goal: Absence of Bleeding Outcome: Ongoing (Interventions Implemented as Appropriate) Problem: Bowel Motility Impaired (Surgery Nonspecified) Goal: Effective Bowel Elimination Outcome: Ongoing (Interventions Implemented as Appropriate) Problem: Infection (Surgery Nonspecified) Goal: Absence of Infection Signs and Symptoms Outcome: Ongoing (Interventions Implemented as Appropriate) Problem: Ongoing Anesthesia Effects (Surgery Nonspecified) Goal: Anesthesia/Sedation Recovery Outcome: Ongoing (Interventions Implemented as Appropriate) Problem: Pain (Surgery Nonspecified) Goal: Acceptable Pain Control Outcome: Ongoing (Interventions Implemented as Appropriate) Problem: Postoperative Nausea and Vomiting (Surgery Nonspecified) Goal: Nausea and Vomiting Relief Outcome: Ongoing (Interventions Implemented as Appropriate) Problem: Postoperative Urinary Retention (Surgery Nonspecified) Goal: Effective Urinary Elimination Outcome: Ongoing (Interventions Implemented as Appropriate) Problem: Infection Goal: Absence of Infection Signs and Symptoms Outcome: Ongoing (Interventions Implemented as Appropriate) Problem: Communication Impairment (Mechanical Ventilation, Invasive) Goal: Effective Communication Outcome: Ongoing (Interventions Implemented as Appropriate) Problem: Device-Related Complication Risk (Mechanical Ventilation, Invasive) Goal: Optimal Device Function Outcome: Ongoing (Interventions Implemented as Appropriate) Problem: Inability to Wean (Mechanical Ventilation, Invasive) Goal: Mechanical Ventilation Liberation Outcome: Ongoing (Interventions Implemented as Appropriate) Problem: Nutrition Impairment (Mechanical Ventilation, Invasive) Goal: Optimal Nutrition Delivery Outcome: Ongoing (Interventions Implemented as Appropriate) Problem: Skin and Tissue Injury (Mechanical Ventilation, Invasive) Goal: Absence of Device-Related Skin and Tissue Injury Outcome: Ongoing (Interventions Implemented as Appropriate) Problem: Ventilator-Induced Lung Injury (Mechanical Ventilation, Invasive) Goal: Absence of Ventilator-Induced Lung Injury Outcome: Ongoing (Interventions Implemented as Appropriate) Problem: Seizure, Active Management Goal: Absence of Seizure/Seizure-Related Injury Outcome: Ongoing (Interventions Implemented as Appropriate) Problem: Bleeding (Craniotomy/Craniectomy/Cranioplasty) Goal: Absence of Bleeding Outcome: Ongoing (Interventions Implemented as Appropriate) Problem: Cerebral Tissue Perfusion Risk (Craniotomy/Craniectomy/Cranioplasty) Goal: Effective Cerebral Tissue Perfusion Outcome: Ongoing (Interventions Implemented as Appropriate) Problem: Fluid Imbalance (Craniotomy/Craniectomy/Cranioplasty) Goal: Fluid Balance Outcome: Ongoing (Interventions Implemented as Appropriate) Problem: Infection (Craniotomy/Craniectomy/Cranioplasty) Goal: Absence of Infection Signs and Symptoms Outcome: Ongoing (Interventions Implemented as Appropriate) Problem: Ongoing Anesthesia Effects (Craniotomy/Craniectomy/Cranioplasty) Goal: Anesthesia/Sedation Recovery Outcome: Ongoing (Interventions Implemented as Appropriate) Problem: Pain (Craniotomy/Craniectomy/Cranioplasty) Goal: Acceptable Pain Control Outcome: Ongoing (Interventions Implemented as Appropriate) Problem: Postoperative Nausea and Vomiting (Craniotomy/Craniectomy/Cranioplasty) Goal: Nausea and Vomiting Relief Outcome: Ongoing (Interventions Implemented as Appropriate) Problem: Postoperative Urinary Retention (Craniotomy/Craniectomy/Cranioplasty) Goal: Effective Urinary Elimination Outcome: Ongoing (Interventions Implemented as Appropriate) * Gayle Daniel, [facility] - 09/22/2024 5:13 AM EDT AMV Protocol: Yes SBT Protocol: Yes SBT: Passed Vent Settings: Ventilator Mode:PS/CPAP PEEP Set: 8 FiO2: 40 % PSV: 8 Ventilator Measurements: Resp: 23 Vt Spontaneous: 452 Ve: 11.8 SpO2: 96 % EtCO2: 24 mmHg Airway: 7.5 @ 22 cm at the Teeth. Skin Integrity: WDL Nebulized Medications: Albuterol & Ipratroprium Q4 Breath Sounds: coarse Secretions: small, zapata, thick Assessment / Events / Plan of the Day: Received pt on above settings. Events: Pt passed SBT on PSV 0/8 40%, weaned to PSV 5/8 35% after SBT. No acute respiratory events overnight. Plan: Continue AMV/ SBT protocol; wean vent settings as tolerated. Gayle Daniel RCP * Erick Pinon MD - 09/21/2024 6:30 PM EDT [facility] Neurosurgery Patient seen and examined on rounds. She remains intubated but was wide-awake and alert, tracking and attending. She followed commands briskly in the right upper and lower extremity. She did not follow on the left. Her incision was clean, dry, and intact. Continue with neurosurgical care as previously outlined. Neurosurgery Pager: [phone] Erick Pinon MD 09/21/2024 6:57 PM * Enedina Titus SLP - 09/21/2024 4:22 PM EDT Speech Language Pathology Contact Note - No Charge Visit Order received for post-extubation clinical swallow evaluation. Chart reviewed. Pt was emergently re-intubated for respiratory distress after failed extubation today. [facility] [employer] [facility] team will continue to monitor. Please page with any questions or concerns. Enedina Munoz M.A., [facility] Speech-Language Pathology Inpatient Rehabilitation Department Pager # [phone] * Rob Guzman MD - 09/21/2024 3:24 PM EDT [facility] [place] NEUROSURGERY PROGRESS NOTE ID: Lucero Bruno 74 y.o. female : 1950 LOS: 5 Neurosurgical Procedures this Admission: 09/16/24, Dr. Espinal: Mary craniotomy for IPH evacuation INTERVAL Hx: -NAEON. Intubated this am. On steroids for pharyngeal/tongue swelling. Neurostable. MEDICATIONS: Scheduled Meds: ipratropium-albuteroL 3 mL Nebulization Q4H chlorhexidine 15 mL Oral BID famotidine 20 mg Per NG tube BID dexAMETHasone inj 8 mg Intravenous Q8H CARLY heparin (porcine) 5,000 Units Subcutaneous Q8H CARLY amLODIPine 5 mg Per NG tube Daily insulin lispro 2-12 Units Subcutaneous Q4H CARLY dilTIAZem 90 mg Per NG tube Q6H CARLY multivitamin with minerals 1 tablet Per NG tube Daily polyethylene glycoL (MIRALAX) oral powder 17 g Oral Daily docusate sodium 100 mg Per NG tube BID And sennosides 17.6 mg Per NG tube BID Continuous Infusions: tube feeding diet Stopped (09/21/24 0300) propofoL 40 mcg/kg/min (09/21/24 1501) PHENYLephrine Stopped (09/21/24 1311) PRN: propofoL, 10 mg, Q10 Min PRN labetaloL, 10-20 mg, Q2H PRN acetaminophen, 650 mg, Q6H PRN glucose 40% oral geL, 15-30 g of glucose, Q15 Min PRN Or dextrose, 250 mL, Q15 Min PRN Or glucagon, 1 mg, Q15 Min PRN bisacodyL, 10 mg, Daily PRN bacitracin zinc-polymyxin B, , PRN gelatin compressed, , PRN thrombin (Bovine), , PRN EXAM: Temp: [35.9 ??C (96.6 ??F)-37.3 ??C (99.1 ??F)] Heart Rate: [49-80] Resp: [15-29] BP: (93-138)/(41-60) SpO2: [90 %-100 %] Heart Rate from SpO2: [49 bpm-80 bpm] I/O: Intake/Output Summary (Last 24 hours) at 09/21/2024 1524 Last data filed at 09/21/2024 1400 Gross per 24 hour Intake 1388.63 ml Output 1720 ml Net -331.37 ml Drains: AUBREY with bloody output, 20cc GEN: Intubated NEURO: A/ox3 with yes/no questions (name/year/place) R pupil 3mm, reactive L eye down, possible lateral deviation, reactive + corneals reflex + cough reflex + gag reflex MOTOR: RUE: FC, thumbs up LUE: WD RLE: wiggles toes LLE: WD Crani cap CDI, no strikethrough LABS: Recent Labs 09/21/24 0021 09/20/24 0009 09/19/24 0055 WBC 14.84* 13.82* 18.90* HGB 8.9* 8.9* 8.9* PLATELET 217 191 204 Recent Labs 09/21/24 0021 09/20/24 0009 09/19/24 0055 NA 141 139 140 K 4.2 4.2 3.6 CL 107 107 110* CO2 23 22 21* BUN 30* 23* 17 CREATININE 0.54* 0.52* 0.49* No results for input(s): PT, INR in the last 72 hours. IMAGING: Results for orders placed or performed during the hospital encounter of 09/16/24 CT Head wo Contrast (Generic) (Exam End: 09/16/2024 5:26 PM) Result Value WORKSTATION ID [id number] Impression Interval expansion of now large right-sided temporal occipital intraparenchymal hemorrhage with significant mass effect resulting in 1 cm leftward midline shift. Per chart review, this patient was seen by neurosurgery and taken emergently to the OR. I have personally reviewed the image(s) and the resident's interpretation and agree with the findings, Lana Reinoso at 09/16/2024 6:01 PM Thank you for letting us participate in the care of this patient. If you are a health care provider and have any questions regarding this report, please contact the number below. For patients who have questions please contact the health ocular care technician that requested your imaging first. Electronically signed by: Lana Reinoso [facility] ([phone]), at 09/16/2024 6:[address] Head wo Contrast (Generic) (Exam End: 09/16/2024 11:21 PM) Result Value WORKSTATION ID [id number] Impression CT head: 1. Interval craniotomy with residual or recurrent hemorrhage right temporal and parietal lobe. 2. New hemorrhage right [...] in the care of this patient. If you are a health care provider and have any questions regarding this report, please contact the number below. For patients who have questions please contact the health ocular care technician that requested your imaging first. Electronically signed by: Armando Pan MD, [facility] ([phone]), at 09/17/2024 1:[address] Venogram Brain (Exam End: 09/16/2024 11:21 PM) Result Value WORKSTATION ID [id number] head: 1. Interval craniotomy with residual or recurrent hemorrhage right temporal and parietal lobe. 2. New hemorrhage right [...] in the care of this patient. If you are a health care provider and have any questions regarding this report, please contact the number below. For patients who have questions please contact the health ocular care technician that requested your imaging first. Electronically signed by: Armando Pan MD, [facility] ([phone]), at 09/17/2024 1:42 AM XR Chest One View (Exam End: 09/16/2024 11:00 PM) Result Value WORKSTATION ID [id number] Impression Satisfactorily positioned enteric and endotracheal tubes. Left lower lobe atelectasis versus pneumonia. Thank you for letting us participate in the care of this patient. If you are a health care provider and have any questions regarding this report, please contact the number below. For patients who have questions please contact the health ocular care technician that requested your imaging first. Electronically signed by: Pamela Beard MD, [facility] ([phone]), at 09/17/2024 12:09 AM XR Abdomen 1 view (Generic) (Exam End: 09/16/2024 11:00 PM) Result Value WORKSTATION ID [id number] Impression Satisfactorily positioned enteric and endotracheal tubes. Left lower lobe atelectasis versus pneumonia. Thank you for letting us participate in the care of this patient. If you are a health care provider and have any questions regarding this report, please contact the number below. For patients who have questions please contact the health ocular care technician that requested your imaging first. Electronically signed by: Pamela Beard MD, [facility] ([phone]), at 09/17/2024 12:[address] Head wo Contrast (Generic) (Exam End: 09/17/2024 4:51 AM) Result Value WORKSTATION ID [id number] Impression Increased size and density of dominant right parietal hematoma, and of hemorrhage extending medially into the basal ganglia. Foci of thalamocapsular hemorrhage on the right are stable. No evidence of progressive intraventricular hemorrhage or ventricular dilation. No definitive increase in leftward midline shift or herniation. Thank you for letting us participate in the care of this patient. If you are a health care provider and have any questions regarding this report, please contact the number below. For patients who have questions please contact the health ocular care technician that requested your imaging first. Electronically signed by: Elvin Bolden DO, [facility] ([phone]), at 09/17/2024 8:38 AM XR Chest One View (Exam End: 09/17/2024 2:13 PM) Result Value WORKSTATION ID [id number] Impression 1. No focal opacity in lung 2. Pulmonary edema, progressed since last examination. 3. Tip of ET tube is 23 mm superior cuff to jonathan. Consider adjustment. 4. Sidehole and tip of NG tube is below the diaphragm. Thank you for letting us participate in the care of this patient. If you are a health care provider and have any questions regarding this report, please contact the number below. For patients who have questions please contact the health ocular care technician that requested your imaging first. Electronically signed by: Zoey Zabala MD, [facility] ([phone]), at 09/17/2024 2:43 PM XR Chest One View (Exam End: 09/18/2024 8:43 AM) Result Value WORKSTATION ID [id number] Impression Tubes and lines as described. Blunting of the left costophrenic angle suggests tiny layering left effusion with associated left basilar consolidation/atelectasis Thank you for letting us participate in the care of this patient. If you are a health care provider and have any questions regarding this report, please contact the number below. For patients who have questions please contact the health ocular care technician that requested your imaging first. Abdomen 1 view (Generic) (Exam End: 09/18/2024 12:31 PM) Result Value WORKSTATION ID [id number] Impression Dobbhoff tube tip along the greater curve of the stomach. Thank you for letting us participate in the care of this patient. If you are a health care provider and have any questions regarding this report, please contact the number below. For patients who have questions please contact the health ocular care technician that requested your imaging first. Brain wwo Contrast (Generic) (Exam End: 09/19/2024 5:43 PM) Result Value WORKSTATION ID [id number] Impression Unchanged size of large right cerebral hemisphere ICH status post partial evacuation. Numerous small foci of decreased acute infarction both along and separate from the site of hemorrhage. These foci are present in both cerebral hemispheres and have a pattern most consistent with embolic infarction. No evidence of [employer] malignancy Thank you for letting us participate in the care of this patient. If you are a health care provider and have any questions regarding this report, please contact the number below. For patients who have questions please contact the health ocular care technician that requested your imaging first. Electronically signed by: Rios Swartz MD, [facility] ([phone]), at 09/20/2024 8:[address] Head wo Contrast (Generic) (Exam End: 09/21/2024 3:50 AM) Result Value WORKSTATION ID [id number] Impression Stable hemorrhage right temporal, parietal, right posterior limb internal capsule and right thalamus. Mild progression of vasogenic edema adjacent to hemorrhage. Similar pattern and extent of local and generalized mass effect with stable subfalcine herniation and uncal herniation. Thank you for letting us participate in the care of this patient. If you are a health care provider and have any questions regarding this report, please contact the number below. For patients who have questions please contact the health ocular care technician that requested your imaging first. Electronically signed by: Armando Pan MD, [facility] ([phone]), at 09/21/2024 4:55 AM Assessment: 74 y.o. female with PMHx notable for Afib (taking ASA, previously on apixaban-stopped taking after IPH in April 2024), CHRISTOPHER, HLD, BMI of 36, prior IPH 04/2024 who presented to hospital 09/16/24 for placement of Watchman with cardiology. She developed headaches and nausea post op and CT scan noted large R [id number] IPH. Repeated CTH wo contrast overnight showing increased hemorrhage on R but exam remains stable. Will defer further neurosurgical intervention at this time and continue to closely monitor exam. Contusions are likely to evolve in coming days with increased edema so advise hypernatremia with Na goal 140-150. AM noted L eye down, possible out. MRI Brain. Wean vent and sedation as tolerated. Plan: -Q1h neuro checks, while intubated -MRI Brain wwo - large R ICH w/ partial evacuation -SBP 90-160 -DVT ppx with SCDs, SQH -Hold antiplatelets/anticoagulants -Na goal 140-150 -Remove AUBREY today -[facility] [place] 040Sep 22 -Wean sedation and wean to extubate as able -Rest of care per primary For questions please call NSGY pager [phone] Rob Guzman MD Clinical Documentation Improvement: Active Hospital Problems Diagnosis Presence of Watchman left atrial appendage closure device Resolved Hospital Problems No resolved problems to display. * Sherine Santana, RD - 09/21/2024 1:42 PM EDT Nutrition Progress Note Lucero Bruno is a 74 y.o. 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 Now is s/p craniotomy and hematoma evacuation. 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 Interval History No data found. Reason for Assessment: Follow-up, ICU Tube Feeding Nutrition Recommendations: Continue Peptamen Intense VHP with a goal rate of 55 mL per hour Monitor TG while on Propofol Mg and phos with daily labs Monitor BM - optimize regimen with goal of 1 [id number] while on TF Monitor BG - goal of 140-180 Daily weights I was able to discuss plan with provider Neurocritical Care Pager #[phone] . Current Nutrition Regimen: Active Orders Diet NPO diet (Give Meds) Frequency: Effective Now Number of Occurrences: Until Specified All Active TF Orders: Peptamen Intense VHP with a goal rate of 55 mL per hour This rate is calculated to compensate for unplanned time off feedings due to potential procedures, etc. At goal, this will provide 1100 mL formula, 1100 calories, 101 grams protein, 924 mL water from formula, and 73% of the RDI's for vitamin and minerals. Average tube feeding provision over past 4 days; 751mL vs daily goal volume of 1100mL formula (68% of goal) Tolerance or barriers to meeting needs: holds Assessment: Lab Results Component Value Date NA 141 09/21/2024 NA 141 05/08/2024 K 4.2 09/21/2024 K 4.2 05/08/2024 CL 107 09/21/2024 CL 105 05/08/2024 CO2 23 09/21/2024 CO2 25 05/08/2024 BUN 30 (H) 09/21/2024 BUN 14 05/08/2024 CREATININE 0.54 (L) 09/21/2024 CREATININE 0.68 (L) 05/08/2024 ESTGFR 92 05/08/2024 MAGNESIUM 0.91 09/21/2024 MAGNESIUM 0.85 05/08/2024 CALCIUM 8.6 09/21/2024 CALCIUM 9.2 05/08/2024 PHOS 3.2 09/21/2024 PHOS 3.1 05/08/2024 AST 15 05/08/2024 ALT 14 05/08/2024 ALKPHOS 92 05/08/2024 BILITOT 0.4 05/08/2024 BILIDIR 0.1 05/08/2024 TRIG 95 09/20/2024 TRIG 101 05/06/2024 HA1C 6.1 (H) 09/17/2024 HA1C 6.0 (H) 05/06/2024 25OHVITD 38 11/14/2023 Lab Results Component Value Date POCGLU 162 09/21/2024 POCGLU 167 09/21/2024 POCGLU 166 09/21/2024 POCGLU 176 09/21/2024 POCGLU 190 09/21/2024 POCGLU 195 09/20/2024 POCGLU 196 09/20/2024 Patient Lines/Drains/Airways Status Active Nutritional LDAs Name Placement date Placement time Site Days Naso/Oral Tube 09/18/24 1229 small bore;nonweighted right nostril 09/18/24 1229 right nostril 3 PIV 09/16/24 1305 1 in length;18 gauge median cubital vein (antecubital fossa), right 09/16/24 1305-- 5 PIV 09/16/24 2216 20 gauge median cubital vein (antecubital fossa), left 09/16/24 2216 -- 5 Percutaneous Central Line 09/17/24 1405 Triple Lumen subclavian vein, right 09/17/24 1405 -- 4 Drain/Device Site 09/16/24 Right parietal region collapsible closed device 09/16/24 -- -- 5 Urethral Catheter 09/16/24 latex 14 5 10 09/16/24 -- -- 5 Oxygen Therapy / Airway Device: Non-rebreather mask Shift Pressure Injury Prevention Occiput: No Injury Thoracic Spine: No Injury Sacral: No Injury Ischial - left: No Injury Ischial - right: No Injury Heel - left: No Injury Heel - right: No Injury Elbow - left: No Injury Elbow - right: No Injury Device Sites: A line sites - tubing, A line Board, ECG Leads, ETT, hill, IV sites, O2 sat monitor,SCD's / venodynes, wrist restraints EEG Skin Appearance: clean, dry, intact Other Sites: dht, aubrey Last Bowel Movement: 09/21/24 Intake/Output Summary (Last 24 hours) at 09/21/2024 1347 Last data filed at 09/21/2024 1311 Gross per 24 hour Intake 1370.03 ml Output 1780 ml Net -409.97 ml Relevant medications: Continuous tube feeding diet Stopped (09/21/24 0300) propofoL 1,000 mg (09/21/24 1251) PHENYLephrine Stopped (09/21/24 1311) Scheduled ipratropium-albuteroL 3 mL Nebulization Q4H chlorhexidine 15 mL Oral BID famotidine 20 mg Per NG tube BID dexAMETHasone inj 8 mg Intravenous Q8H CARLY amLODIPine 5 mg Per NG tube Daily insulin lispro 2-12 Units Subcutaneous Q4H CARLY dilTIAZem 90 mg Per NG tube Q6H CARLY multivitamin with minerals 1 tablet Per NG tube Daily polyethylene glycoL (MIRALAX) oral powder 17 g Oral Daily docusate sodium 100 mg Per NG tube BID And sennosides 17.6 mg Per NG tube BID PRN propofoL AND propofoL, labetaloL, acetaminophen, glucose 40% oral geL OR dextrose OR glucagon, bisacodyL, bacitracin zinc-polymyxin B, gelatin compressed, thrombin (Bovine) Anthropometrics: Admit Weight: 88.45 kg Estimated body mass index is 39.31 kg/m?? as calculated from the following: Height as of 09/18/24: 152.4 cm (5'). Weight as of this encounter: 91.3 kg (201 lb 4.5 oz). [place] Body Weight (IBW) (kg): 45.45 Wt Readings from Last 10 Encounters: 09/21/24 91.3 kg (201 lb 4.5 oz) 09/18/24 91.5 kg (201 lb 11.5 oz) 07/28/24 85.3 kg (188 lb) 05/24/24 81.6 kg (180 lb) 05/08/24 84.1 kg (185 lb 6.4 oz) 05/08/24 82 kg (180 lb 12.4 oz) 04/23/24 83.9 kg (185 lb) 03/03/24 85 kg (187 lb 6.3 oz) 11/14/23 87.2 kg (192 lb 3.2 oz) Patient Vitals for the past 168 hrs: Weight 09/21/24 0400 91.3 kg (201 lb 4.5 oz) 09/20/24 0400 91.7 kg (202 lb 2.6 oz) 09/19/24 0500 93 kg (205 lb 0.4 oz) 09/18/24 0500 91.5 kg (201 lb 11.5 oz) 09/17/24 0600 88.7 kg (195 lb 8.8 oz) 09/16/24 2208 88.7 kg (195 lb 8.8 oz) 09/16/24 1258 88.5 kg (195 lb) Weight Source: Bed Estimated / Assessed Needs: Fluid Requirements: Estimated Fluid Requirement Method: Weight Based Method Weight Based Method: 25 Weight Based Calculation: 1137.5 mL Kcal / K - 1419 Kcal (11 Kcal/Kg - 16 Kcal/Kg) for the first 7-10 days Estimated Protein Needs: 91 g - 114 g (2.0 g/Kg - 2.5 g/Kg IBW) Nutrition intake and intake history / interview: 09/21: Pt extubated and reintubated today, restarted on propofol. TF held. 09/17: Cx for TF recs. Per chart, wt has been fluctuating 82-89 kg x 10 months. No data found. Nutrition Focused Physical Exam: Not performed (Pt is 1 day post-op - concerns for pain that would be exacerbated by NFPE) Reason NFPE Not Performed: Clinical condition preventing accurate assessment. Malnutrition Diagnosis: Not enough data to assess (TRACE López J Parenteral Enteral Nutr. 2011; 36(3): 273-83) Nutrition to continue to follow up while inpatient Thank you, Sherine Santana, MS, RD, LD, [facility] Clinical Nutrition * Mariola Calixto MD - 09/21/2024 9:35 AM EDT ICU PROGRESS NOTE DOA: 09/16/2024 Room: [facility] Length of Stay: 5 ICU Length of Stay 4d 11h Lucero Bruno ( ) is a 74 y.o. 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 Over night events: None. Medications: Scheduled Meds: amLODIPine 5 mg Per NG tube Daily insulin lispro 2-12 Units Subcutaneous Q4H CARLY dilTIAZem 90 mg Per NG tube Q6H CARLY multivitamin with minerals 1 tablet Per NG tube Daily polyethylene glycoL (MIRALAX) oral powder 17 g Oral Daily chlorhexidine 15 mL Oral BID famotidine 20 mg Per NG tube BID docusate sodium 100 mg Per NG tube BID And sennosides 17.6 mg Per NG tube BID Continuous Infusions: tube feeding diet Stopped (09/21/24 0300) dexmedeTOMIDine 0.4 mcg/kg/hr (09/21/24 0846) PRN Meds:.labetaloL, acetaminophen, fentaNYL (PF), glucose 40% oral geL OR dextrose OR glucagon, bisacodyL, bacitracin zinc-polymyxin B, gelatin compressed, thrombin (Bovine) Vitals: Temp: [35.9 ??C (96.6 ??F)-37.3 ??C (99.1 ??F)] Heart Rate: [49-80] Resp: [16-29] BP: (132-138)/(54-58) SpO2: [90 %-99 %] Heart Rate from SpO2: [49 bpm-80 bpm] Ventilator Settings: PS 10/5 30% Physical Exam: Cons: NAD Cardiac: RRR S1S2 Pulm: CTAB, no W/R/R GI: S/NT/ND, BS+ MSK: WWP, no C/C/E Neuro Exam: MS - awake alert, interactive CN intact BUE purposeful, not FC BLE WD I/Os: Intake/Output Summary (Last 24 hours) at 09/21/2024 0991 Last data filed at 09/21/2024 0813 Gross per 24 hour Intake 1653.46 ml Output 1780 ml Net -126.54 ml Labs: Last 3 wbc, hgb, hct plt Recent Labs 09/21/24 0021 09/20/24 0009 09/19/24 0055 WBC 14.84* 13.82* 18.90* HGB 8.9* 8.9* 8.9* HCT 27.2* 26.9* 27.1* PLATELET 217 191 204 Last 3 Lytes Recent Labs 09/21/24 0021 09/20/24 0009 09/19/24 0055 NA 141 139 140 K 4.2 4.2 3.6 CL 107 107 110* CO2 23 22 21* BUN 30* 23* 17 CREATININE 0.54* 0.52* 0.49* Last 3 LFTs Recent Labs 05/08/24 0121 05/07/24 0157 05/06/24 0951 AST 15 13 16 ALT 14 14 16 ALKPHOS 92 91 97 BILITOT 0.4 0.3 0.4 BILIDIR 0.1 <0.1 -- Last Ca, Mg, Phos Recent Labs 09/21/24 0021 CALCIUM 8.6 PHOS 3.2 MAGNESIUM 0.91 Last 3 Coags Recent Labs 09/18/24 0615 09/18/24 0020 09/17/24 1723 PT 12.3 12.8* 12.1 INR 1.1 1.1 1.1 PTT Last 3 TFT Recent Labs 05/06/24 0548 TSH 0.99 Last 3 Lipids Recent Labs 09/20/24 0009 09/17/24 0039 09/16/24 1707 05/06/24 0548 CHLPL -- 203 -- 135 HDL -- 45 -- 46 LDLCHOL -- -- -- 69 LDLDIRECT -- 133 -- -- TRIG 95 147 174 101 Last 3 HgbA1C Recent Labs 09/17/24 0039 05/06/24 0548 HA1C 6.1* 6.0* Labs: I have reviewed - Micro: - None Imaging/Studies: - I have reviewed the recent CT - stable hemorrhage, increased amount of edema and persistent IVH Assessment/Plan: Neuro - R occipitoparietal ICH with cerebral edema, mass affect and brain compression s/p R craniotomy. 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5, Platelets > 100k - SCDs, chemoppx contraindicated Endo - - goal glucose 120-180 --> Accuchecks and ISS ID - Afebrile, reactive leukocytosis - Monitor off antibiotics - Reculture q72hr for temp > 101F --> UA, blood cx, sputum cx, CXR - acetaminophen PRN Core: Code status: FULL Dispo - ICU //////////////////////////////////////////////////////////////////////////////// //////////////////// /////////////////////////////////////////////////Attestation: IS PATIENT CRITICALLY ILL? Is there a high potential of sudden, clinically significant, or life threatening deterioration? Yes Is there a need for direct personal assessment and management to treat/prevent multiple vital organfailure/deterioration? Yes I personally performed 40 minutes of aggregate critical care time exclusive of procedures and teaching. This includes time spent during direct patient evaluation and reassessment, interpreting diagnostic tests, directing life and/or organ supporting interventions and documentation on the unit. Mariola Calixto MD 09/21/2024 9:35 AM * Bartolome Xiao RCP - 09/21/2024 3:58 AM EDT RT Mechanical Ventilation Note Lucero Bruno 74 y.o. female 09/16/2024 10:06 AM AMV Protocol Y/N: Y Airway: 8.0 @ 22 Teeth Initial Vent Settings: PSV 5/5 30% Current Vent Settings: Ventilator Mode: PS/CPAP PEEP Set: 5 FiO2: 29 % PSV: (S) 5 Ventilator Measurements: Resp: 19 Vt Spontaneous: 471 Ve: 12.1 SpO2: 97 % EtCO2: 25 mmHg ABG/VBG: ABG (Arterial Blood Gas) No results found for: PHART, PO2ART, TLM6FER Initial Assessment: Received patient intubated on vent at settings above. Airway patency, placement, and vent settings verified. Bi-lateral BS clear, chest rise equal, and vitals stable. Today's Plan: Continue to support oxygenation/ventilation needs via mechanical ventilation. A.M. SBT Y/N: Y, Pass/Fail: P Notes: Awake and following commands this shift. Cuff leak present for day shift. Patient looking good for extubation today. * Felicia Castillo RCP - 09/20/2024 4:22 PM EDT Illness Severity Stable Respiratory Modalities: PS/CPAP 5/+5, 30% Airway: 8.0 @ 22 Teeth Patient Summary Admitted: 09/16/2024 Age: 74 y.o. Code Status: FULL. Patient has remained in PSV mode. Cuff leak noted during morning assessment. Action List Situational Awareness & Contingency Planning * Mariola Calixto MD - 09/20/2024 9:25 AM EDT ICU PROGRESS NOTE DOA: 09/16/2024 Room: [address] [place] [address] Length of Stay: 4 ICU Length of Stay 3d 11h Lucero Bruno ( ) is a 74 y.o. 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 Over night events: None. Medications: Scheduled Meds: dilTIAZem 90 mg Per NG tube Q6H CARLY dexAMETHasone inj 8 mg Intravenous Q8H CARLY insulin lispro 1-6 Units Subcutaneous Q4H CARLY multivitamin with minerals 1 tablet Per NG tube Daily polyethylene glycoL (MIRALAX) oral powder 17 g Oral Daily chlorhexidine 15 mL Oral BID famotidine 20 mg Per NG tube BID docusate sodium 100 mg Per NG tube BID And sennosides 17.6 mg Per NG tube BID Continuous Infusions: tube feeding diet 1,100 mL (09/20/24 0800) clevidipine 2 mg/hr (09/20/24 0909) dexmedeTOMIDine 0.2 mcg/kg/hr (09/20/24 0452) PRN Meds:.acetaminophen, fentaNYL (PF), glucose 40% oral geL OR dextrose OR glucagon, enalaprilat, bisacodyL, bacitracin zinc-polymyxin B, gelatin compressed, thrombin (Bovine), lidocaine-EPINEPHrine Vitals: Temp: [36.6 ??C (97.9 ??F)-38.1 ??C (100.6 ??F)] Heart Rate: [64-105] Resp: [18-30] BP: (119-135)/(47-110) SpO2: [94 %-97 %] Heart Rate from SpO2: [64 bpm-104 bpm] Ventilator Settings: PS 10/5 30% Physical Exam: Cons: NAD Cardiac: RRR S1S2 Pulm: CTAB, no W/R/R GI: S/NT/ND, BS+ MSK: WWP, no C/C/E Neuro Exam: MS - awake alert, interactive CN intact BUE purposeful, FC on Right LLE WD I/Os: Intake/Output Summary (Last 24 hours) at 09/20/2024 0925 Last data filed at 09/20/2024 0800 Gross per 24 hour Intake 2371 ml Output 2532 ml Net -161 ml Labs: Last 3 wbc, hgb, hct plt Recent Labs 09/20/24 0009 09/19/24 0055 09/18/24 0020 WBC 13.82* 18.90* 20.04* HGB 8.9* 8.9* 10.2* HCT 26.9* 27.1* 30.3* PLATELET 191 204 250 Last 3 Lytes Recent Labs 09/20/24 0009 09/19/24 0055 09/18/24 0615 09/18/24 0020 NA 139 140 142 141 K 4.2 3.6 4.0 3.6 CL 107 110* -- 108* CO2 22 21* -- 22 BUN 23* 17 -- 15 CREATININE 0.52* 0.49* -- 0.57* Last 3 LFTs Recent Labs 05/08/24 0121 05/07/24 0157 05/06/24 0951 AST 15 13 16 ALT 14 14 16 ALKPHOS 92 91 97 BILITOT 0.4 0.3 0.4 BILIDIR 0.1 <0.1 -- Last Ca, Mg, Phos Recent Labs 09/20/24 000 CALCIUM 8.4* PHOS 2.9 MAGNESIUM 0.88 Last 3 Coags Recent Labs 09/18/24 0615 09/18/24 0020 09/17/24 1723 PT 12.3 12.8* 12.1 INR 1.1 1.1 1.1 PTT Last 3 TFT Recent Labs 05/06/24 0548 TSH 0.99 Last 3 Lipids Recent Labs 09/20/24 0009 09/17/24 0039 09/16/24 1707 05/06/24 0548 CHLPL -- 203 -- 135 HDL -- 45 -- 46 LDLCHOL -- -- -- 69 LDLDIRECT -- 133 -- -- TRIG 95 147 174 101 Last 3 HgbA1C Recent Labs 09/17/24 0039 05/06/24 0548 HA1C 6.1* 6.0* Labs: WBC elevated but trending down, elevated BUN, Na wnl. Micro: - None Imaging/Studies: - I have reviewed the MRI - apparent dissipation of hemorrhage, some evidence of micro emboli in multiple areas. No large ischemic stroke evident aside from the hemorrhagic site. Assessment/Plan: Neuro - R occipitoparietal ICH with cerebral edema, mass affect and brain compression s/p R craniotomy. 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 - q1 neurochecks - SBP < 140 - Analgesia: tylenol, PRN fentanyl - Sedation: precedex since Friday, 09/18 - MRI completed CV - Rate controlled afib s/p watchman device - BP as above - c/w diltiazem for rate control - if MAP sustained < 65, IVF, consider pressors - Transition from Clevidipine to minimize volume -start amlodipine 160 to enable clevidipine wean Pulm - Intubated for airway protection in the setting of neuro problem, absent cuff leak with tongue edema - Goal PaO2 > 60, paCO2 35-45, O2 sats > 92% - Ventilator liberation protocol - VAP precautions - tongue swelling precludes extubation - Decadron 8mg q8 completed for absent cuff leak - Sugar wrap for tongue protrusion, and continue decadron GI - Dysphagia - TF via OGT - maintain bowel reg - GI ppx with H2B FEN/ - Total body fluid overload, hyperchloremic metabolic acidosis - Goal eunatremia, HTS if neurologically deteriorates - ICU potassium repletion protocol - Sergio for strict I/Os Heme - - goal Hgb > 7, INR < 1.5, Platelets > 100k - SCDs, chemoppx contraindicated - LE for fever work-up Endo - - goal glucose 120-180 --> Accuchecks and ISS ID - Afebrile, reactive leukocytosis - Monitor off antibiotics - Reculture q72hr for temp > 101F --> UA, blood cx, sputum cx, CXR - acetaminophen PRN Core: Code status: FULL Dispo - ICU //////////////////////////////////////////////////////////////////////////////// //////////////////// /////////////////////////////////////////////////Attestation: IS PATIENT CRITICALLY ILL? Is there a high potential of sudden, clinically significant, or life threatening deterioration? Yes Is there a need for direct personal assessment and management to treat/prevent multiple vital organfailure/deterioration? Yes I personally performed 40 minutes of aggregate critical care time exclusive of procedures and teaching. This includes time spent during direct patient evaluation and reassessment, interpreting diagnostic tests, directing life and/or organ supporting interventions and documentation on the unit. Mariola Calixto MD 09/20/2024 9:25 AM * Rob Guzman MD - 09/20/2024 8:17 AM EDT [facility] NEUROSURGERY PROGRESS NOTE ID: Lucero Bruno 74 y.o. female : 1950 LOS: 4 Neurosurgical Procedures this Admission: 09/16/24, Dr. Espinal: R craniotomy for IPH evacuation INTERVAL Hx: -NAEON. Intubated. FC in RUE MEDICATIONS: Scheduled Meds: amLODIPine 5 mg Per NG tube Daily heparin (porcine) 5,000 Units Subcutaneous Q8H CARLY dilTIAZem 90 mg Per NG tube Q6H CARLY dexAMETHasone inj 8 mg Intravenous Q8H CARLY insulin lispro 1-6 Units Subcutaneous Q4H CARLY multivitamin with minerals 1 tablet Per NG tube Daily polyethylene glycoL (MIRALAX) oral powder 17 g Oral Daily chlorhexidine 15 mL Oral BID famotidine 20 mg Per NG tube BID docusate sodium 100 mg Per NG tube BID And sennosides 17.6 mg Per NG tube BID Continuous Infusions: tube feeding diet 55 mL/hr at 09/20/24 1000 dexmedeTOMIDine 0.2 mcg/kg/hr (09/20/24 1000) PRN: labetaloL, 10-20 mg, Q2H PRN acetaminophen, 650 mg, Q6H PRN fentaNYL (PF), 25 mcg, Q1H PRN glucose 40% oral geL, 15-30 g of glucose, Q15 Min PRN Or dextrose, 250 mL, Q15 Min PRN Or glucagon, 1 mg, Q15 Min PRN bisacodyL, 10 mg, Daily PRN bacitracin zinc-polymyxin B, , PRN gelatin compressed, , PRN thrombin (Bovine), , PRN EXAM: Temp: [37.1 ??C (98.8 ??F)-38.1 ??C (100.6 ??F)] Heart Rate: [62-90] Resp: [18-28] BP: (132)/(54) SpO2: [94 %-99 %] Heart Rate from SpO2: [63 bpm-90 bpm] I/O: Intake/Output Summary (Last 24 hours) at 09/20/2024 1726 Last data filed at 09/20/2024 1600 Gross per 24 hour Intake 1824.8 ml Output 1511 ml Net 313.8 ml Drains: AUBREY with bloody output, 32cc GEN: Intubated NEURO: R pupil 3mm, reactive L eye down, possible lateral deviation, reactive + corneals reflex + cough reflex + gag reflex MOTOR: RUE: FC, thumbs up LUE: WD RLE: wiggles toes - intermittent to command LLE: WD Crani cap CDI, no strikethrough LABS: Recent Labs 09/20/24 0009 09/19/24 0055 09/18/24 0020 WBC 13.82* 18.90* 20.04* HGB 8.9* 8.9* 10.2* PLATELET 191 204 250 Recent Labs 09/20/24 0009 09/19/24 0055 09/18/24 0615 09/18/24 0020 NA 139 140 142 141 K 4.2 3.6 4.0 3.6 CL 107 110* -- 108* CO2 22 21* -- 22 BUN 23* 17 -- 15 CREATININE 0.52* 0.49* -- 0.57* Recent Labs 09/18/24 0615 09/18/24 0020 PT 12.3 12.8* INR 1.1 1.1 IMAGING: Results for orders placed or performed during the hospital encounter of 09/16/24 CT Head wo Contrast (Generic) (Exam End: 09/16/2024 5:26 PM) Result Value WORKSTATION ID [id number] Impression Interval expansion of now large right-sided temporal occipital intraparenchymal hemorrhage with significant mass effect resulting in 1 cm leftward midline shift. Per chart review, this patient was seen by neurosurgery and taken emergently to the OR. I have personally reviewed the image(s) and the resident's interpretation and agree with the findings, Lana Reinoso at 09/16/2024 6:01 PM Thank you for letting us participate in the care of this patient. If you are a health care provider and have any questions regarding this report, please contact the number below. For patients who have questions please contact the health ocular care technician that requested your imaging first. Electronically signed by: Laan Reinoso [facility] ([phone]), at 09/16/2024 6:[address] Head wo Contrast (Generic) (Exam End: 09/16/2024 11:21 PM) Result Value WORKSTATION ID [id number] Impression CT head: 1. Interval craniotomy with residual or recurrent hemorrhage right temporal and parietal lobe. 2. New hemorrhage right [...] in the care of this patient. If you are a health care provider and have any questions regarding this report, please contact the number below. For patients who have questions please contact the health ocular care technician that requested your imaging first. Electronically signed by: Armando Pan MD, [facility] ([phone]), at 09/17/2024 1:[address] Venogram Brain (Exam End: 09/16/2024 11:21 PM) Result Value WORKSTATION ID [id number] Impression CT head: 1. Interval craniotomy with residual or recurrent hemorrhage right temporal and parietal lobe. 2. New hemorrhage right [...] in the care of this patient. If you are a health care provider and have any questions regarding this report, please contact the number below. For patients who have questions please contact the health ocular care technician that requested your imaging first. Electronically signed by: Armando Pan MD, [facility] ([phone]), at 09/17/2024 1:42 AM XR Chest One View (Exam End: 09/16/2024 11:00 PM) Result Value WORKSTATION ID [id number] Impression Satisfactorily positioned enteric and endotracheal tubes. Left lower lobe atelectasis versus pneumonia. Thank you for letting us participate in the care of this patient. If you are a health care provider and have any questions regarding this report, please contact the number below. For patients who have questions please contact the health ocular care technician that requested your imaging first. Electronically signed by: Pamela Beard MD, [facility] ([phone]), at 09/17/2024 12:09 AM XR Abdomen 1 view (Generic) (Exam End: 09/16/2024 11:00 PM) Result Value WORKSTATION ID [id number] Impression Satisfactorily positioned enteric and endotracheal tubes. Left lower lobe atelectasis versus pneumonia. Thank you for letting us participate in the care of this patient. If you are a health care provider and have any questions regarding this report, please contact the number below. For patients who have questions please contact the health ocular care technician that requested your imaging first. Electronically signed by: Pamela Beard MD, [facility] ([phone]), at 09/17/2024 12:[address] Head wo Contrast (Generic) (Exam End: 09/17/2024 4:51 AM) Result Value WORKSTATION ID [id number] Impression Increased size and density of dominant right parietal hematoma, and of hemorrhage extending medially into the basal ganglia. Foci of thalamocapsular hemorrhage on the right are stable. No evidence of progressive intraventricular hemorrhage or ventricular dilation. No definitive increase in leftward midline shift or herniation. Thank you for letting us participate in the care of this patient. If you are a health care provider and have any questions regarding this report, please contact the number below. For patients who have questions please contact the health ocular care technician that requested your imaging first. Electronically signed by: Elvin Bolden DO, [facility] ([phone]), at 09/17/2024 8:38 AM XR Chest One View (Exam End: 09/17/2024 2:13 PM) Result Value WORKSTATION ID [id number] Impression 1. No focal opacity in lung 2. Pulmonary edema, progressed since last examination. 3. Tip of ET tube is 23 mm superior cuff to jonathan. Consider adjustment. 4. Sidehole and tip of NG tube is below the diaphragm. Thank you for letting us participate in the care of this patient. If you are a health care provider and have any questions regarding this report, please contact the number below. For patients who have questions please contact the health ocular care technician that requested your imaging first. Electronically signed by: Zoey Zabala MD, [facility] ([phone]), at 09/17/2024 2:43 PM XR Chest One View (Exam End: 09/18/2024 8:43 AM) Result Value WORKSTATION ID [id number] Impression Tubes and lines as described. Blunting of the left costophrenic angle suggests tiny layering left effusion with associated left basilar consolidation/atelectasis Thank you for letting us participate in the care of this patient. If you are a health care provider and have any questions regarding this report, please contact the number below. For patients who have questions please contact the health ocular care technician that requested your imaging first. Abdomen 1 view (Generic) (Exam End: 09/18/2024 12:31 PM) Result Value WORKSTATION ID [id number] Impression Dobbhoff tube tip along the greater curve of the stomach. Thank you for letting us participate in the care of this patient. If you are a health care provider and have any questions regarding this report, please contact the number below. For patients who have questions please contact the health ocular care technician that requested your imaging first. Brain wwo Contrast (Generic) (Exam End: 09/19/2024 5:43 PM) Result Value WORKSTATION ID [id number] Impression Unchanged size of large right cerebral hemisphere ICH status post partial evacuation. Numerous small foci of decreased acute infarction both along and separate from the site of hemorrhage. These foci are present in both cerebral hemispheres and have a pattern most consistent with embolic infarction. No evidence of [employer] malignancy Thank you for letting us participate in the care of this patient. If you are a health care provider and have any questions regarding this report, please contact the number below. For patients who have questions please contact the health ocular care technician that requested your imaging first. Electronically signed by: Rios Swartz MD, [facility] ([phone]), at 09/20/2024 8:24 AM Assessment: 74 y.o. female with PMHx notable for Afib (taking ASA, previously on apixaban-stopped taking after IPH in April 2024), CHRISTOPHER, HLD, BMI of 36, prior IPH 04/2024 who presented to hospital 09/16/24 for placement of Watchman with cardiology. She developed headaches and nausea post op and CT scan noted large R jizacfrp-ibxyvzm-rakeltlbj IPH. Repeated CTH wo contrast overnight showing increased hemorrhage on R but exam remains stable. Will defer further neurosurgical intervention at this time and continue to closely monitor exam. Contusions are likely to evolve in coming days with increased edema so advise hypernatremia with Na goal 140-150. AM noted L eye down, possible out. MRI Brain. Wean vent and sedation as tolerated. Plan: -Q1h neuro checks, while intubated -MRI Brain wwo - large R ICH w/ partial evacuation -SBP 90-160 -DVT ppx with SCDs, SQH -Hold antiplatelets/anticoagulants -Na goal 140-150 -Keep and record AUBREY output x 1 more day -Wean sedation and wean to extubate as able -Rest of care per primary For questions please call NS pager [phone] Rob Guzman MD Clinical Documentation Improvement: Active Hospital Problems Diagnosis Presence of Watchman left atrial appendage closure device Resolved Hospital Problems No resolved problems to display. Associated attestation - Sushila Espinal MD - 09/20/2024 7:48 PM EDT I was the attending physician supervising the resident in the above care. I agree with the history,physical exam, assessment, and plan. Patient seen and examined at bedside. Awake, alert, intubated, following commands on right side, left side not following commands, left upper and lower withdrawing. - extubate as tolerated - may start dvt chemoprophylaxis today - ct head tomorrow AM Sushila Espinal MD PhD [employer] Section of Neurosurgery Department of Surgery [facility] [email or web address] * Bartolome Xiao, [facility] - 09/20/2024 3:35 AM EDT RT Mechanical Ventilation Note Lucero Bruno 74 y.o. female 09/16/2024 10:06 AM AMV Protocol Y/N: Y Airway: 8.0 @ 22 Teeth Initial Vent Settings: PSV 5/5 30% Current Vent Settings: Ventilator Mode: PS/CPAP Tidal Volume Set: (S) 360 Resp Rate Set: 15 PEEP Set: 5 FiO2: 30 % Ventilator Measurements: Resp: 28 Vt Exhaled: 396 PIP: 8 MAP: 6.1 Plateau Press: Ve: 8.7 PEEP: SpO2: 96 % EtCO2: 24 mmHg ABG/VBG: ABG (Arterial Blood Gas) No results found for: PHART, PO2ART, [id number] Initial Assessment: Received patient intubated on vent at settings above. Airway patency, placement, and vent settings verified. Bi-lateral BS clear, chest rise equal, and vitals stable. Today's Plan: Continue to support oxygenation/ventilation needs via mechanical ventilation. A.M. SBT Y/N: Y, Pass/Fail: P Notes: * Felicia Castillo RCP - 09/19/2024 6:24 PM EDT Illness Severity Stable Respiratory Modalities: PS/CPAP 8/+5, 30% Airway: 8.0 @ 22 Teeth Patient Summary Admitted: 09/16/2024 Age: 74 y.o. Code Status: FULL. Patient has remained in PSV mode, PS increased due to RR in the 30s. No cuff leak noted during morning assessment. Action List Situational Awareness & Contingency Planning * Serenity Espinosa MD - 09/19/2024 9:58 AM EDT ICU PROGRESS NOTE DOA: 09/16/2024 Room: [facility] Length of Stay: 3 ICU Length of Stay 2d 11h Lucero Bruno ( ) is a 74 y.o. 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 Over night events: None. Cardene for BP control. AUBREY drain output 50cc. 40mg of lasix given this morning for fluid overload. Medications: Scheduled Meds: potassium phosphate 15 mmol Intravenous Q4H dilTIAZem 90 mg Per NG tube Q6H CARLY insulin lispro 1-4 Units Subcutaneous Q4H [facility] multivitamin with minerals 1 tablet Per NG tube Daily polyethylene glycoL (MIRALAX) oral powder 17 g Oral Daily chlorhexidine 15 mL Oral BID famotidine 20 mg Per NG tube BID docusate sodium 100 mg Per NG tube BID And sennosides 17.6 mg Per NG tube BID Continuous Infusions: tube feeding diet Stopped (09/19/24 0350) niCARdipine 10 mg/hr (09/19/24 0918) PRN Meds:.fentaNYL (PF), glucose 40% oral geL OR dextrose OR glucagon, enalaprilat, bisacodyL, bacitracin zinc-polymyxin B, gelatin compressed, thrombin (Bovine), lidocaine-EPINEPHrine Vitals: Temp: [36.9 ??C (98.4 ??F)-37.9 ??C (100.3 ??F)] Heart Rate: [64-98] Resp: [16-28] BP: (134-144)/(51-58) SpO2: [93 %-97 %] Heart Rate from SpO2: [64 bpm-99 bpm] Ventilator Settings: PS 10/8 40% Physical Exam: Cons: NAD Cardiac: RRR S1S2 Pulm: CTAB, no W/R/R GI: S/NT/ND, BS+ MSK: WWP, no C/C/E Neuro Exam: MS: Eyes open to tactile stimulation, tracking, following commands on the right CN: PERRL, L CN3 palsy, blink to threat bilaterally, +cough and gag Motor: Normal bulk and tone throughout RUE spont AG/FC LUE WD RLE spont AG/FC LLE WD Sensory: Intact to touch throughout I/Os: Intake/Output Summary (Last 24 hours) at 09/19/2024 0958 Last data filed at 09/19/2024 0953 Gross per 24 hour Intake 2629.46 ml Output 1915 ml Net 714.46 ml Labs: Last 3 wbc, hgb, hct plt Recent Labs 09/19/24 0055 09/18/24 0020 09/17/24 0039 WBC 18.90* 20.04* 23.60* HGB 8.9* 10.2* 12.9 HCT 27.1* 30.3* 38.5 PLATELET 204 250 327 Last 3 Lytes Recent Labs 09/19/24 0055 09/18/24 0615 09/18/24 0020 09/17/24 0039 NA 140 142 141 141 K 3.6 4.0 3.6 4.4 CL 110* -- 108* 108* CO2 21* -- 22 21* BUN 17 -- 15 15 CREATININE 0.49* -- 0.57* 0.67* Last 3 LFTs Recent Labs 05/08/24 0121 05/07/24 0157 05/06/24 0951 AST 15 13 16 ALT 14 14 16 ALKPHOS 92 91 97 BILITOT 0.4 0.3 0.4 BILIDIR 0.1 <0.1 -- Last Ca, Mg, Phos Recent Labs 09/19/24 0055 CALCIUM 8.2* PHOS 1.7* MAGNESIUM 0.77 Last 3 Coags Recent Labs 09/18/24 0615 09/18/24 0020 09/17/24 1723 PT 12.3 12.8* 12.1 INR 1.1 1.1 1.1 PTT Last 3 TFT Recent Labs 05/06/24 0548 TSH 0.99 Last 3 Lipids Recent Labs 09/17/24 0039 09/16/24 1707 05/06/24 0548 CHLPL 203 -- 135 HDL 45 -- 46 LDLCHOL -- -- 69 LDLDIRECT 133 -- -- TRIG 147 174 101 Last 3 HgbA1C Recent Labs 09/17/24 0039 05/06/24 0548 HA1C 6.1* 6.0* Micro: - None Imaging/Studies: - I have reviewed all imaging for this admission. Assessment/Plan: Neuro - R occipitoparietal ICH with cerebral edema, mass affect and brain compression s/p R craniotomy. 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 - q1 neurochecks - SBP < 140 - Analgesia: tylenol, PRN fentanyl - Sedation: Propofol as tolerated for comfort - MRI pending given new CN3 palsy CV - Rate controlled afib s/p watchman device - BP as above - c/w diltiazem for rate control - if MAP sustained < 65, IVF, consider pressors - Transition from Cardene to Cleviprex to minimize volume Pulm - Intubated for airway protection in the setting of neuro problem, absent cuff leak with tongue edema - Goal PaO2 > 60, paCO2 35-45, O2 sats > 92% - Ventilator liberation protocol - VAP precautions - Mental status precludes extubation - Deferred extubation for imaging, fluid overload - Decadron 8mg q8 for absent cuff leak - Sugar wrap for tongue protrusion GI - Dysphagia - TF via OGT - maintain bowel reg - GI ppx with H2B FEN/ - Total body fluid overload, hyperchloremic metabolic acidosis - Goal eunatremia, HTS if neurologically deteriorates - ICU potassium repletion protocol - Hill for strict I/Os Heme - - goal Hgb > 7, INR < 1.5, Platelets > 100k - SCDs, chemoppx contraindicated - LE US for fever work-up Endo - - goal glucose 120-180 --> Accuchecks and ISS ID - Afebrile, reactive leukocytosis - Monitor off antibiotics - Reculture q72hr for temp > 101F --> UA, blood cx, sputum cx, CXR - acetaminophen PRN Core: Code status: FULL Dispo - ICU //////////////////////////////////////////////////////////////////////////////// //////////////////// /////////////////////////////////////////////////Attestation: IS PATIENT CRITICALLY ILL? Is there a high potential of sudden, clinically significant, or life threatening deterioration? Yes Is there a need for direct personal assessment and management to treat/prevent multiple vital organfailure/deterioration? Yes I personally performed 40 minutes of aggregate critical care time exclusive of procedures and teaching. This includes time spent during direct patient evaluation and reassessment, interpreting diagnostic tests, directing life and/or organ supporting interventions and documentation on the unit. Serenity Espinosa MD 09/19/2024 9:58 AM * Crys Suarez MD - 09/19/2024 9:54 AM EDT [facility] [place] NEUROSURGERY PROGRESS NOTE ID: Lucero Bruno 74 y.o. female : 1950 LOS: 3 Neurosurgical Procedures this Admission: 09/16/24, Dr. Espinal: R craniotomy for IPH evacuation INTERVAL Hx: -Neuro stable -L eye stable -Improving temps -Passing SBT -Na 140 MEDICATIONS: Scheduled Meds: potassium phosphate 15 mmol Intravenous Q4H dilTIAZem 90 mg Per NG tube Q6H CARLY insulin lispro 1-4 Units Subcutaneous Q4H CARLY multivitamin with minerals 1 tablet Per NG tube Daily polyethylene glycoL (MIRALAX) oral powder 17 g Oral Daily chlorhexidine 15 mL Oral BID famotidine 20 mg Per NG tube BID docusate sodium 100 mg Per NG tube BID And sennosides 17.6 mg Per NG tube BID Continuous Infusions: tube feeding diet Stopped (09/19/24 0350) niCARdipine 10 mg/hr (09/19/24 0918) PRN: fentaNYL (PF), 25 mcg, Q1H PRN glucose 40% oral geL, 15-30 g of glucose, Q15 Min PRN Or dextrose, 250 mL, Q15 Min PRN Or glucagon, 1 mg, Q15 Min PRN enalaprilat, 1.25 mg, Q6H PRN bisacodyL, 10 mg, Daily PRN bacitracin zinc-polymyxin B, , PRN gelatin compressed, , PRN thrombin (Bovine), , PRN lidocaine-EPINEPHrine, , PRN EXAM: Temp: [36.9 ??C (98.4 ??F)-37.9 ??C (100.3 ??F)] Heart Rate: [64-98] Resp: [16-28] BP: (134-144)/(51-58) SpO2: [93 %-97 %] Heart Rate from SpO2: [64 bpm-99 bpm] I/O: Intake/Output Summary (Last 24 hours) at 09/19/2024 0954 Last data filed at 09/19/2024 0953 Gross per 24 hour Intake 2629.46 ml Output 1215 ml Net 1414.46 ml Drains: AUBREY with bloody output, 50cc GEN: Intubated NEURO: R pupil 3mm, reactive L eye down, possible lateral deviation, reactive + corneals reflex + cough reflex + gag reflex MOTOR: RUE: FC, thumbs up LUE: WD RLE: FC, wiggles LLE: WD Crani cap CDI, no strikethrough LABS: Recent Labs 09/19/24 0055 09/18/24 0020 09/17/24 0039 WBC 18.90* 20.04* 23.60* HGB 8.9* 10.2* 12.9 PLATELET 204 250 327 Recent Labs 09/19/24 0055 09/18/24 0615 09/18/24 0020 09/17/24 0039 NA 140 142 141 141 K 3.6 4.0 3.6 4.4 CL 110* -- 108* 108* CO2 21* -- 22 21* BUN 17 -- 15 15 CREATININE 0.49* -- 0.57* 0.67* Recent Labs 09/18/24 0615 09/18/24 0020 09/17/24 1723 PT 12.3 12.8* 12.1 INR 1.1 1.1 1.1 IMAGING: Results for orders placed or performed during the hospital encounter of 09/16/24 CT Head wo Contrast (Generic) (Exam End: 09/16/2024 5:26 PM) Result Value WORKSTATION ID [id number] Impression Interval expansion of now large right-sided temporal occipital intraparenchymal hemorrhage with significant mass effect resulting in 1 cm leftward midline shift. Per chart review, this patient was seen by neurosurgery and taken emergently to the OR. I have personally reviewed the image(s) and the resident's interpretation and agree with the findings, Lana Reinoso at 09/16/2024 6:01 PM Thank you for letting us participate in the care of this patient. If you are a health care provider and have any questions regarding this report, please contact the number below. For patients who have questions please contact the health ocular care technician that requested your imaging first. Electronically signed by: Lana Reinoso [facility] ([phone]), at 09/16/2024 6:[address] Head wo Contrast (Generic) (Exam End: 09/16/2024 11:21 PM) Result Value WORKSTATION ID [id number] Impression CT head: 1. Interval craniotomy with residual or recurrent hemorrhage right temporal and parietal lobe. 2. New hemorrhage right [...] in the care of this patient. If you are a health care provider and have any questions regarding this report, please contact the number below. For patients who have questions please contact the health ocular care technician that requested your imaging first. Electronically signed by: Armando Pan MD, [facility] ([phone]), at 09/17/2024 1:[address] Venogram Brain (Exam End: 09/16/2024 11:21 PM) Result Value WORKSTATION ID [id number] Impression CT head: 1. Interval craniotomy with residual or recurrent hemorrhage right temporal and parietal lobe. 2. New hemorrhage right [...] in the care of this patient. If you are a health care provider and have any questions regarding this report, please contact the number below. For patients who have questions please contact the health ocular care technician that requested your imaging first. Electronically signed by: Aramndo Pan MD, [facility] ([phone]), at 09/17/2024 1:42 AM XR Chest One View (Exam End: 09/16/2024 11:00 PM) Result Value WORKSTATION ID [id number] Impression Satisfactorily positioned enteric and endotracheal tubes. Left lower lobe atelectasis versus pneumonia. Thank you for letting us participate in the care of this patient. If you are a health care provider and have any questions regarding this report, please contact the number below. For patients who have questions please contact the health ocular care technician that requested your imaging first. Electronically signed by: Pamela Beard MD, [facility] ([phone]), at 09/17/2024 12:09 AM XR Abdomen 1 view (Generic) (Exam End: 09/16/2024 11:00 PM) Result Value WORKSTATION ID [id number] Impression Satisfactorily positioned enteric and endotracheal tubes. Left lower lobe atelectasis versus pneumonia. Thank you for letting us participate in the care of this patient. If you are a health care provider and have any questions regarding this report, please contact the number below. For patients who have questions please contact the health ocular care technician that requested your imaging first. Electronically signed by: Pamela Beard MD, [facility] ([phone]), at 09/17/2024 12:[address] Head wo Contrast (Generic) (Exam End: 09/17/2024 4:51 AM) Result Value WORKSTATION ID [id number] Impression Increased size and density of dominant right parietal hematoma, and of hemorrhage extending medially into the basal ganglia. Foci of thalamocapsular hemorrhage on the right are stable. No evidence of progressive intraventricular hemorrhage or ventricular dilation. No definitive increase in leftward midline shift or herniation. Thank you for letting us participate in the care of this patient. If you are a health care provider and have any questions regarding this report, please contact the number below. For patients who have questions please contact the health ocular care technician that requested your imaging first. Electronically signed by: Elvin Bolden DO, [facility] ([phone]), at 09/17/2024 8:38 AM XR Chest One View (Exam End: 09/17/2024 2:13 PM) Result Value WORKSTATION ID [id number] Impression 1. No focal opacity in lung 2. Pulmonary edema, progressed since last examination. 3. Tip of ET tube is 23 mm superior cuff to jonathan. Consider adjustment. 4. Sidehole and tip of NG tube is below the diaphragm. Thank you for letting us participate in the care of this patient. If you are a health care provider and have any questions regarding this report, please contact the number below. For patients who have questions please contact the health ocular care technician that requested your imaging first. Electronically signed by: Zoey Zabala MD, [facility] ([phone]), at 09/17/2024 2:43 PM XR Chest One View (Exam End: 09/18/2024 8:43 AM) Result Value WORKSTATION ID [id number] Impression Tubes and lines as described. Blunting of the left costophrenic angle suggests tiny layering left effusion with associated left basilar consolidation/atelectasis Thank you for letting us participate in the care of this patient. If you are a health care provider and have any questions regarding this report, please contact the number below. For patients who have questions please contact the health ocular care technician that requested your imaging first. Abdomen 1 view (Generic) (Exam End: 09/18/2024 12:31 PM) Result Value WORKSTATION ID [id number] Impression Dobbhoff tube tip along the greater curve of the stomach. Thank you for letting us participate in the care of this patient. If you are a health care provider and have any questions regarding this report, please contact the number below. For patients who have questions please contact the health ocular care technician that requested your imaging first. Assessment: 74 y.o. female with PMHx notable for Afib (taking ASA, previously on apixaban-stopped taking after IPH in April 2024), CHRISTOPHER, HLD, BMI of 36, prior IPH 04/2024 who presented to hospital 09/16/24 for placement of Watchman with cardiology. She developed headaches and nausea post op and CT scan noted large R dslogvaa-umryuan-hfgadevov IPH. Repeated CTH wo contrast overnight showing increased hemorrhage on R but exam remains stable. Will defer further neurosurgical intervention at this time and continue to closely monitor exam. Contusions are likely to evolve in coming days with increased edema so advise hypernatremia with Na goal 140-150. AM noted L eye down, possible out. Consider MRI Brain. Can add contrast to evaluate hemorrhage. Wean to extubate. Will recommend interval HCT after extubation as baseline prior to possible chemoppx Plan: -Q1h neuro checks, while intubated -Recommend MRI Brain wwo -SBP 90-160 -DVT ppx with SCDs, hold chemoppx (sustained this bleed on intra-procedure heparin used for Watchman placement; will plan for interval HCT prior to re-initiation) -Hold antiplatelets/anticoagulants -Na goal 140-150 -Keep and record AUBREY output -Wean sedation and wean to extubate as able -Rest of care per primary For questions please call [employer] pager [phone] Crys Suarez MD Clinical Documentation Improvement: Active Hospital Problems Diagnosis Presence of Watchman left atrial appendage closure device Resolved Hospital Problems No resolved problems to display. Associated attestation - Sushila Espinal MD - 09/20/2024 1:05 PM EDT I was the attending physician supervising the resident in the above care. I agree with the history,physical exam, assessment, and plan. Sushila Espinal MD PhD [employer] Section of Neurosurgery Department of Surgery [facility] [email or web address] * Ezequiel Morales RN - 09/19/2024 6:44 AM EDT OUTCOME EVALUATION NOTE: OUTCOME SUMMARY: Pt intermittently opens eyes to commands, . Pt follows commands on the RUE and RLE, withdraws on the RUE, and withdraws on the LLE (see Neuro flowsheet for assessments). Pt with R parietal AUBREY drain, on bulb suction draining sanguinous drainage, total output this shift - mL. PRN Fentanyl 25mcg givenx 1. Pt assisted mechanically on PS/CPAP 10, FiO2 30%, PEEP 8. NSR in Telemetry. Nicard on and off throughout the shift. TF on hold at 0400 per provider. BM x 3. Hill in place with AOUP. Mg 2g givenx 1, Kphos 15mMol given x 1. PLAN MOVING FORWARD: Q1 VS Q1 NC Q1 R femoral site checks SBP<140 MRI of the brain CPG GOAL OUTCOME EVALUATION: Problem: Fall Injury Risk Goal: Absence of Fall and Fall-Related Injury Outcome: Ongoing (Interventions Implemented as Appropriate) Problem: Restraint, Nonbehavioral (Nonviolent) Goal: Discontinuation Criteria Achieved Outcome: Ongoing (Interventions Implemented as Appropriate) Problem: Adjustment to Illness (Stroke, Hemorrhagic) Goal: Optimal Coping Outcome: Ongoing (Interventions Implemented as Appropriate) Problem: Bowel Elimination Impaired (Stroke, Hemorrhagic) Goal: Effective Bowel Elimination Outcome: Ongoing (Interventions Implemented as Appropriate) Problem: Cerebral Tissue Perfusion (Stroke, Hemorrhagic) Goal: Optimal Cerebral Tissue Perfusion Outcome: Ongoing (Interventions Implemented as Appropriate) Problem: Cognitive Impairment (Stroke, Hemorrhagic) Goal: Optimal Cognitive Function Outcome: Ongoing (Interventions Implemented as Appropriate) Problem: Communication Impairment (Stroke, Hemorrhagic) Goal: Effective Communication Skills Outcome: Ongoing (Interventions Implemented as Appropriate) Problem: Functional Ability Impaired (Stroke, Hemorrhagic) Goal: Optimal Functional Ability Outcome: Ongoing (Interventions Implemented as Appropriate) Problem: Pain (Stroke, Hemorrhagic) Goal: Acceptable Pain Control Outcome: Ongoing (Interventions Implemented as Appropriate) Problem: Respiratory Compromise (Stroke, Hemorrhagic) Goal: Effective Oxygenation and Ventilation Outcome: Ongoing (Interventions Implemented as Appropriate) Problem: Sensorimotor Impairment (Stroke, Hemorrhagic) Goal: Improved Sensorimotor Function Outcome: Ongoing (Interventions Implemented as Appropriate) Problem: Swallowing Impairment (Stroke, Hemorrhagic) Goal: Oral Intake without Aspiration Outcome: Ongoing (Interventions Implemented as Appropriate) Problem: Urinary Elimination Impaired (Stroke, Hemorrhagic) Goal: Effective Urinary Elimination Outcome: Ongoing (Interventions Implemented as Appropriate) Problem: Adult Inpatient Plan of Care Goal: Plan of Care Review Outcome: Ongoing (Interventions Implemented as Appropriate) Goal: Patient-Specific Goal (Individualized) Outcome: Ongoing (Interventions Implemented as Appropriate) Goal: Absence of Hospital-Acquired Illness or Injury Outcome: Ongoing (Interventions Implemented as Appropriate) Goal: Optimal Comfort and Wellbeing Outcome: Ongoing (Interventions Implemented as Appropriate) Goal: Readiness for Transition of Care Outcome: Ongoing (Interventions Implemented as Appropriate) * Bartolome Xiao RCP - 09/18/2024 8:24 PM EDT RT Mechanical Ventilation Note Lucero Bruno 74 y.o. female 09/16/2024 10:06 AM AMV Protocol Y/N: Y Airway: 8.0 @ 22 Teeth Initial Vent Settings: PSV 5/5 30% Current Vent Settings: Ventilator Mode: PS/CPAP PEEP Set: 5 FiO2: 30 % PSV: 5 Ventilator Measurements: Resp: 20 Vt Spontaneous: 442 Ve: 8.2 SpO2: 96 % EtCO2: 29 mmHg ABG/VBG: ABG (Arterial Blood Gas) No results found for: PHART, PO2ART, [id number] Initial Assessment: Received patient intubated on vent at settings above. Airway patency, placement, and vent settings verified. Bi-lateral BS clear, chest rise equal, and vitals stable. Today's Plan: Continue to support oxygenation/ventilation needs via mechanical ventilation. A.M. SBT Y/N: Y, Pass/Fail: P Notes: * Devan Cummings RCP - 09/18/2024 5:02 PM EDT Illness Severity Stable Respiratory Modalities: PS/CPAP 5/+5, 30% Airway: 8.0 @ 22 Teeth Patient Summary Admitted: 09/16/2024 Age: 74 y.o. Code Status: FULL. HPI: Patient s/p Watchman procedure, developed 09/02 worst headache of life, CT scan revealed largeR IPH. Neuro exam continued to decline, was given Mannitol and 23%, intubated while in CT and brought emergently to OR PMHx: afib Events w/ date: 09/16: Post Watchman procedure_stroke_inubated_OR for evacuation 09/16 Overnight: Patient had CT scan x2 overnight, PEEP increased to +8, FiO2 decreased to 40%, no incidents or marked distress of note. 09/17 Day: FiO2 decreased to 30% 09/18 Pressure support and Peep weaned to / Action List Medications/ACT: N/A Situational Awareness & Contingency Planning * Serenity Espinosa MD - 09/18/2024 11:04 AM EDT ICU PROGRESS NOTE DOA: 09/16/2024 Room: [address] [place] [address]-A Length of Stay: 2 ICU Length of Stay 1d 13h Lucero Bruno ( ) is a 74 y.o. 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 Over night events: Febrile to 101.3, pancultured. Required 3 PRNs for BP control. Medications: Scheduled Meds: acetaminophen 1,000 mg Intravenous Q6H CARLY insulin lispro 1-4 Units Subcutaneous Q4H [facility] multivitamin with minerals 1 tablet Per NG tube Daily polyethylene glycoL (MIRALAX) oral powder 17 g Oral Daily chlorhexidine 15 mL Oral BID famotidine 20 mg Per NG tube BID docusate sodium 100 mg Per NG tube BID And sennosides 17.6 mg Per NG tube BID dilTIAZem 60 mg Per NG tube Q6H [facility] Continuous Infusions: niCARdipine 2.5 mg/hr (09/18/24 0617) sodium chloride 0.9% 100 mL/hr (09/18/24 0617) NORepinephrine Stopped (09/17/24 1443) tube feeding diet Stopped (09/18/24 0300) propofoL Stopped (09/17/24 1440) PRN Meds:.potassium chloride ER OR potassium chloride ER, fentaNYL (PF), glucose 40% oral geL OR dextrose OR glucagon, NORepinephrine, labetaloL, enalaprilat, bisacodyL, propofoL AND propofoL, bacitracin zinc-polymyxin B, gelatin compressed, thrombin (Bovine), lidocaine-EPINEPHrine Vitals: Temp: [36.4 ??C (97.5 ??F)-38.5 ??C (101.3 ??F)] Heart Rate: [73-106] Resp: [14-27] BP: (103-165)/(46-80) SpO2: [94 %-98 %] Heart Rate from SpO2: [73 bpm-106 bpm] Ventilator Settings: PS 10/8 40% Physical Exam: Cons: NAD Cardiac: RRR S1S2 Pulm: CTAB, no W/R/R GI: S/NT/ND, BS+ MSK: WWP, no C/C/E Neuro Exam: MS: Eyes open to tactile stimulation, tracking, following commands on the right CN: PERRL, L CN3 palsy, blink to threat bilaterally, +cough and gag Motor: Normal bulk and tone throughout RUE spont AG/FC LUE WD RLE spont AG/FC LLE WD Sensory: Intact to touch throughout I/Os: Intake/Output Summary (Last 24 hours) at 09/18/2024 1104 Last data filed at 09/18/2024 0800 Gross per 24 hour Intake 3526.9 ml Output 1018 ml Net 2508.9 ml Labs: Last 3 wbc, hgb, hct plt Recent Labs 09/18/24 0020 09/17/24 0039 09/16/24 1707 WBC 20.04* 23.60* 16.82* HGB 10.2* 12.9 14.2 HCT 30.3* 38.5 42.8 PLATELET 250 327 269 Last 3 Lytes Recent Labs 09/18/24 0615 09/18/24 0020 09/17/24 0039 09/16/24 1029 NA -- 141 141 140 K 4.0 3.6 4.4 4.3 CL -- 108* 108* 104 CO2 -- 22 21* 27 BUN -- 15 15 17 CREATININE -- 0.57* 0.67* 0.68* Last 3 LFTs Recent Labs 05/08/24 0121 05/07/24 0157 05/06/24 0951 AST 15 13 16 ALT 14 14 16 ALKPHOS 92 91 97 BILITOT 0.4 0.3 0.4 BILIDIR 0.1 <0.1 -- Last Ca, Mg, Phos Recent Labs 09/18/24 0020 CALCIUM 8.2* PHOS 2.4* MAGNESIUM 0.81 Last 3 Coags Recent Labs 09/18/24 0615 09/18/24 0020 09/17/24 1723 PT 12.3 12.8* 12.1 INR 1.1 1.1 1.1 PTT Last 3 TFT Recent Labs 05/06/24 0548 TSH 0.99 Last 3 Lipids Recent Labs 09/17/24 0039 09/16/24 1707 05/06/24 0548 CHLPL 203 -- 135 HDL 45 -- 46 LDLCHOL -- -- 69 LDLDIRECT 133 -- -- TRIG 147 174 101 Last 3 HgbA1C Recent Labs 09/17/24 0039 05/06/24 0548 HA1C 6.1* 6.0* Micro: - None Imaging/Studies: - I have reviewed all imaging for this admission. Assessment/Plan: Neuro - R occipitoparietal ICH with cerebral edema, mass affect and brain compression s/p R craniotomy. 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 - q1 neurochecks - SBP < 140 - Analgesia: tylenol, PRN fentanyl - Sedation: Propofol as tolerated for comfort - Home meds: CV - Rate controlled afib s/p watchman device - BP as above - c/w diltiazem for rate control - if MAP sustained < 65, IVF, consider pressors Pulm - Intubated for airway protection in the setting of neuro problem - Goal PaO2 > 60, paCO2 35-45, O2 sats > 92% - Ventilator liberation protocol - VAP precautions - Mental status precludes extubation GI - Dysphagia - Start TF via OGT - maintain bowel reg - GI ppx with H2B FEN/ - - Avoid hypovolemia - Goal eunatremia, HTS if neurologically deteriorates - ICU potassium repletion protocol - Hill for strict I/Os Heme - - goal Hgb > 7, INR < 1.5, Platelets > 100k - SCDs, chemoppx contraindicated - LE for fever work-up Endo - - goal glucose 120-180 --> Accuchecks and ISS ID - Afebrile, reactive leukocytosis - Monitor off antibiotics - Reculture q72hr for temp > 101F --> UA, blood cx, sputum cx, CXR - acetaminophen PRN Core: Code status: FULL Dispo - ICU //////////////////////////////////////////////////////////////////////////////// //////////////////// /////////////////////////////////////////////////Attestation: IS PATIENT CRITICALLY ILL? Is there a high potential of sudden, clinically significant, or life threatening deterioration? Yes Is there a need for direct personal assessment and management to treat/prevent multiple vital organfailure/deterioration? Yes I personally performed 40 minutes of aggregate critical care time exclusive of procedures and teaching. This includes time spent during direct patient evaluation and reassessment, interpreting diagnostic tests, directing life and/or organ supporting interventions and documentation on the unit. Serenity Espinosa MD 09/18/2024 11:04 AM * Crys Suarez MD - 09/18/2024 7:59 AM EDT [facility] [place] NEUROSURGERY PROGRESS NOTE ID: Lucero Bruno 74 y.o. female : 1950 LOS: 2 Neurosurgical Procedures this Admission: 09/16/24, Dr. Espinal: R craniotomy for IPH evacuation INTERVAL Hx: -L pupil downcast -Tmax 38.5 -XR c/f progression of pulm edema -WBC elevated -Na 141 MEDICATIONS: Scheduled Meds: insulin lispro 1-4 Units Subcutaneous Q4H CARLY multivitamin with minerals 1 tablet Per NG tube Daily polyethylene glycoL (MIRALAX) oral powder 17 g Oral Daily chlorhexidine 15 mL Oral BID famotidine 20 mg Per NG tube BID docusate sodium 100 mg Per NG tube BID And sennosides 17.6 mg Per NG tube BID dilTIAZem 60 mg Per NG tube Q6H CARLY Continuous Infusions: niCARdipine 2.5 mg/hr (09/18/24 06) sodium chloride 0.9% 100 mL/hr (09/18/24 06) NORepinephrine Stopped (09/17/24 1443) tube feeding diet Stopped (09/18/24 0300) propofoL Stopped (09/17/24 1440) PRN: potassium chloride ER, 40 mEq, Q4H PRN Or potassium chloride ER, 20 mEq, Q4H PRN fentaNYL (PF), 25 mcg, Q1H PRN glucose 40% oral geL, 15-30 g of glucose, Q15 Min PRN Or dextrose, 250 mL, Q15 Min PRN Or glucagon, 1 mg, Q15 Min PRN NORepinephrine, 0-100 mcg/min, Continuous PRN labetaloL, 10-20 mg, Q15 Min PRN enalaprilat, 1.25 mg, Q6H PRN bisacodyL, 10 mg, Daily PRN propofoL, 10 mg, Q10 Min PRN bacitracin zinc-polymyxin B, , PRN gelatin compressed, , PRN thrombin (Bovine), , PRN lidocaine-EPINEPHrine, , PRN EXAM: Temp: [36.4 ??C (97.5 ??F)-38.5 ??C (101.3 ??F)] Heart Rate: [65-103] Resp: [15-27] BP: (103-136)/(46-80) SpO2: [96 %-98 %] Heart Rate from SpO2: [64 bpm-103 bpm] I/O: Intake/Output Summary (Last 24 hours) at 09/18/2024 0759 Last data filed at 09/18/2024 0617 Gross per 24 hour Intake 3341.1 ml Output 1033 ml Net 2308.1 ml Drains: AUBREY with bloody output, 138 GEN: Intubated NEURO: R pupil 3mm, reactive L eye down, possible lateral deviation, reactive + corneals reflex + cough reflex + gag reflex MOTOR: RUE: FC, thumbs up LUE: WD RLE: FC, wiggles LLE: WD Crani cap CDI, no strikethrough LABS: Recent Labs 09/18/24 0020 09/17/24 0039 09/16/24 1707 WBC 20.04* 23.60* 16.82* HGB 10.2* 12.9 14.2 PLATELET 250 327 269 Recent Labs 09/18/24 0615 09/18/24 0020 09/17/24 0039 09/16/24 1029 NA -- 141 141 140 K 4.0 3.6 4.4 4.3 CL -- 108* 108* 104 CO2 -- 22 21* 27 BUN -- 15 15 17 CREATININE -- 0.57* 0.67* 0.68* Recent Labs 09/18/24 0615 09/18/24 0020 09/17/24 1723 PT 12.3 12.8* 12.1 INR 1.1 1.1 1.1 IMAGING: Results for orders placed or performed during the hospital encounter of 09/16/24 CT Head wo Contrast (Generic) (Exam End: 09/16/2024 5:26 PM) Result Value WORKSTATION ID [id number] Impression Interval expansion of now large right-sided temporal occipital intraparenchymal hemorrhage with significant mass effect resulting in 1 cm leftward midline shift. Per chart review, this patient was seen by neurosurgery and taken emergently to the OR. I have personally reviewed the image(s) and the resident's interpretation and agree with the findings, Lana Reinoso at 09/16/2024 6:01 PM Thank you for letting us participate in the care of this patient. If you are a health care provider and have any questions regarding this report, please contact the number below. For patients who have questions please contact the health ocular care technician that requested your imaging first. Head wo Contrast (Generic) (Exam End: 09/16/2024 11:21 PM) Result Value WORKSTATION ID [id number] Impression CT head: 1. Interval craniotomy with residual or recurrent hemorrhage right temporal and parietal lobe. 2. New hemorrhage right [...] in the care of this patient. If you are a health care provider and have any questions regarding this report, please contact the number below. For patients who have questions please contact the health ocular care technician that requested your imaging first. Electronically signed by: Armando Pan MD, [facility] ([phone]), at 09/17/2024 1:[address] Venogram Brain (Exam End: 09/16/2024 11:21 PM) Result Value WORKSTATION ID [id number] Impression CT head: 1. Interval craniotomy with residual or recurrent hemorrhage right temporal and parietal lobe. 2. New hemorrhage right [...] in the care of this patient. If you are a health care provider and have any questions regarding this report, please contact the number below. For patients who have questions please contact the health ocular care technician that requested your imaging first. Electronically signed by: Armando Pan MD, [facility] ([phone]), at 09/17/2024 1:42 AM XR Chest One View (Exam End: 09/16/2024 11:00 PM) Result Value WORKSTATION ID [id number] Impression Satisfactorily positioned enteric and endotracheal tubes. Left lower lobe atelectasis versus pneumonia. Thank you for letting us participate in the care of this patient. If you are a health care provider and have any questions regarding this report, please contact the number below. For patients who have questions please contact the health ocular care technician that requested your imaging first. Electronically signed by: Pamela Beard MD, [facility] ([phone]), at 09/17/2024 12:09 AM XR Abdomen 1 view (Generic) (Exam End: 09/16/2024 11:00 PM) Result Value WORKSTATION ID [id number] Impression Satisfactorily positioned enteric and endotracheal tubes. Left lower lobe atelectasis versus pneumonia. Thank you for letting us participate in the care of this patient. If you are a health care provider and have any questions regarding this report, please contact the number below. For patients who have questions please contact the health ocular care technician that requested your imaging first. Electronically signed by: Pamela Beard MD, [facility] ([phone]), at 09/17/2024 12:[address] Head wo Contrast (Generic) (Exam End: 09/17/2024 4:51 AM) Result Value WORKSTATION ID [id number] Impression Increased size and density of dominant right parietal hematoma, and of hemorrhage extending medially into the basal ganglia. Foci of thalamocapsular hemorrhage on the right are stable. No evidence of progressive intraventricular hemorrhage or ventricular dilation. No definitive increase in leftward midline shift or herniation. Thank you for letting us participate in the care of this patient. If you are a health care provider and have any questions regarding this report, please contact the number below. For patients who have questions please contact the health ocular care technician that requested your imaging first. Electronically signed by: Elvin Bolden DO, [facility] ([phone]), at 09/17/2024 8:38 AM XR Chest One View (Exam End: 09/17/2024 2:13 PM) Result Value WORKSTATION ID [id number] Impression 1. No focal opacity in lung 2. Pulmonary edema, progressed since last examination. 3. Tip of ET tube is 23 mm superior cuff to jonathan. Consider adjustment. 4. Sidehole and tip of NG tube is below the diaphragm. Thank you for letting us participate in the care of this patient. If you are a health care provider and have any questions regarding this report, please contact the number below. For patients who have questions please contact the health ocular care technician that requested your imaging first. Assessment: 74 y.o. female with PMHx notable for Afib (taking ASA, previously on apixaban-stopped taking after IPH in April 2024), CHRISTOPHER, HLD, BMI of 36, prior IPH 04/2024 who presented to hospital 09/16/24 for placement of Watchman with cardiology. She developed headaches and nausea post op and CT scan noted large R pnabhdej-[id number] IPH. Repeated CTH wo contrast overnight showing increased hemorrhage on R but exam remains stable. Will defer further neurosurgical intervention at this time and continue to closely monitor exam. Contusions are likely to evolve in coming days with increased edema so advise hypernatremia with Na goal 140-150. AM noted L eye down, possible out. Consider MRI Brain. Can add contrast to evaluate hemorrhage. Plan: -Q1h neuro checks -Recommend MRI Brain wwo -SBP 90-160 -DVT ppx with SCDs, hold chemoppx (sustained this bleed on intra-procedure heparin used for Watchman placement) -Hold antiplatelets/anticoagulants -Na goal 140-150 -Keep and record AUBREY output -Wean sedation and wean to extubate as able -Rest of care per primary For questions please call [employer] pager [phone] Crys Suarez MD Clinical Documentation Improvement: Active Hospital Problems Diagnosis Presence of Watchman left atrial appendage closure device Resolved Hospital Problems No resolved problems to display. Associated attestation - Sushila Espinal MD - 09/20/2024 1:06 PM EDT I was the attending physician supervising the resident in the above care. I agree with the history,physical exam, assessment, and plan. Sushila Espinal MD PhD [employer] Section of Neurosurgery Department of Surgery [facility] Medicine at [facility] [email or web address] * Ezequiel Morales, RN - 09/18/2024 6:45 AM EDT OUTCOME EVALUATION NOTE: OUTCOME SUMMARY: Pt intermittently opens eyes to commands, . Pt follows commands on the RUE and RLE, withdraws on the RUE, and withdraws on the LLE (see Neuro flowsheet for assessments). Pt with R parietal AUBREY drain, on bulb suction draining sanguinous drainage, total output this shift - 68mL. PRN Fentanyl 25mcg given x 2. Pt assisted mechanically on PS/CPAP 10, FiO2 30%, PEEP 8. NSR in Telemetry. PRN Labetalol 10mg given x 1. TF on hold at [address] provider[address] Hill in place with AOUP. PLAN MOVING FORWARD: Q1 VS Q1 NC Q1 R femoral site checks SBP<140 CPG GOAL OUTCOME EVALUATION: Problem: Fall Injury Risk Goal: Absence of Fall and Fall-Related Injury Outcome: Ongoing (Interventions Implemented as Appropriate) Problem: Restraint, Nonbehavioral (Nonviolent) Goal: Discontinuation Criteria Achieved Outcome: Ongoing (Interventions Implemented as Appropriate) Problem: Adjustment to Illness (Stroke, Hemorrhagic) Goal: Optimal Coping Outcome: Ongoing (Interventions Implemented as Appropriate) Problem: Bowel Elimination Impaired (Stroke, Hemorrhagic) Goal: Effective Bowel Elimination Outcome: Ongoing (Interventions Implemented as Appropriate) Problem: Cerebral Tissue Perfusion (Stroke, Hemorrhagic) Goal: Optimal Cerebral Tissue Perfusion Outcome: Ongoing (Interventions Implemented as Appropriate) Problem: Cognitive Impairment (Stroke, Hemorrhagic) Goal: Optimal Cognitive Function Outcome: Ongoing (Interventions Implemented as Appropriate) Problem: Communication Impairment (Stroke, Hemorrhagic) Goal: Effective Communication Skills Outcome: Ongoing (Interventions Implemented as Appropriate) Problem: Functional Ability Impaired (Stroke, Hemorrhagic) Goal: Optimal Functional Ability Outcome: Ongoing (Interventions Implemented as Appropriate) Problem: Pain (Stroke, Hemorrhagic) Goal: Acceptable Pain Control Outcome: Ongoing (Interventions Implemented as Appropriate) Problem: Respiratory Compromise (Stroke, Hemorrhagic) Goal: Effective Oxygenation and Ventilation Outcome: Ongoing (Interventions Implemented as Appropriate) Problem: Sensorimotor Impairment (Stroke, Hemorrhagic) Goal: Improved Sensorimotor Function Outcome: Ongoing (Interventions Implemented as Appropriate) Problem: Swallowing Impairment (Stroke, Hemorrhagic) Goal: Oral Intake without Aspiration Outcome: Ongoing (Interventions Implemented as Appropriate) Problem: Urinary Elimination Impaired (Stroke, Hemorrhagic) Goal: Effective Urinary Elimination Outcome: Ongoing (Interventions Implemented as Appropriate) Problem: Adult Inpatient Plan of Care Goal: Plan of Care Review Outcome: Ongoing (Interventions Implemented as Appropriate) Goal: Patient-Specific Goal (Individualized) Outcome: Ongoing (Interventions Implemented as Appropriate) Goal: Absence of Hospital-Acquired Illness or Injury Outcome: Ongoing (Interventions Implemented as Appropriate) Goal: Optimal Comfort and Wellbeing Outcome: Ongoing (Interventions Implemented as Appropriate) Goal: Readiness for Transition of Care Outcome: Ongoing (Interventions Implemented as Appropriate) * Jose De La Torre RCP - 09/17/2024 4:45 PM EDT Illness Severity Stable Respiratory Modalities: PS/CPAP 10/+8, 30% Airway: 8.0 @ 22 Teeth Patient Summary Admitted: 09/16/2024 Age: 74 y.o. Code Status: FULL. HPI: Patient s/p Watchman procedure, developed 10/10 worst headache of life, CT scan revealed largeR IPH. Neuro exam continued to decline, was given Mannitol and 23%, intubated while in CT and brought emergently to OR PMHx: afib Events w/ date: 09/16: Post Watchman procedure_stroke_inubated_OR for evacuation 09/16 Overnight: Patient had CT scan x2 overnight, PEEP increased to +8, FiO2 decreased to 40%, no incidents or marked distress of note. 09/17 Day: FiO2 decreased to 30% Action List Medications/ACT: N/A Received patient on PS 10/8 on 40%. FiO2 was titrated down to 30%. Continue to wean as tolerated and give respiratory support. Jose De La Torre RCP * Serenity Espinosa MD - 09/17/2024 12:16 PM EDT ICU PROGRESS NOTE DOA: 09/16/2024 [facility]: 1 ICU Length of Stay 14h Lucero Bruno ( ) is a 74 y.o. 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 Medications: Scheduled Meds: insulin lispro 1-4 Units Subcutaneous Q4H CARLY multivitamin with minerals 1 tablet Per NG tube Daily polyethylene glycoL (MIRALAX) oral powder 17 g Oral Daily chlorhexidine 15 mL Oral BID famotidine 20 mg Per NG tube BID docusate sodium 100 mg Per NG tube BID And sennosides 17.6 mg Per NG tube BID dilTIAZem 60 mg Per NG tube Q6H [facility] Continuous Infusions: tube feeding diet 55 mL/hr at 09/17/24 1200 niCARdipine 5 mg/hr (09/17/24 1207) sodium chloride 0.9% 100 mL/hr (09/17/24 1200) propofoL 20 mcg/kg/min (09/17/24 1200) PRN Meds:.fentaNYL (PF), glucose 40% oral geL OR dextrose OR glucagon, labetaloL, enalaprilat, bisacodyL, [DISCONTINUED] acetaminophen OR acetaminophen OR [DISCONTINUED] acetaminophen, propofoL AND propofoL, bacitracin zinc-polymyxin B, gelatin compressed, thrombin (Bovine), lido zafar-EPINEPHrine Vitals: Temp: [36.4 ??C (97.5 ??F)-37 ??C (98.6 ??F)] Heart Rate: [56-80] Resp: [13-24] BP: (92-147)/(55-84) SpO2: [94 %-100 %] Heart Rate from SpO2: [56 bpm-80 bpm] Ventilator Settings: PS 10/8 40% Physical Exam: Cons: NAD Cardiac: RRR S1S2 Pulm: CTAB, no W/R/R GI: S/NT/ND, BS+ MSK: WWP, no C/C/E Neuro Exam: MS: Eyes open to tactile stimulation, tracking, following commands on the right CN: PERRL, EOMI, blink to threat bilaterally, +cough and gag Motor: Normal bulk and tone throughout RUE spont AG/FC LUE WD RLE spont AG/FC LLE WD Sensory: Intact to touch throughout I/Os: Intake/Output Summary (Last 24 hours) at 09/17/2024 1216 Last data filed at 09/17/2024 1200 Gross per 24 hour Intake 2965.55 ml Output 1314 ml Net 1651.55 ml Labs: Last 3 wbc, hgb, hct plt Recent Labs 09/17/24 0039 09/16/24 1707 09/16/24 1029 WBC 23.60* 16.82* 9.46 HGB 12.9 14.2 14.7 HCT 38.5 42.8 45.6 PLATELET 327 269 311 Last 3 Lytes Recent Labs 09/17/24 0039 09/16/24 1029 05/08/24 0121 NA 141 140 141 K 4.4 4.3 4.2 CL 108* 104 105 CO2 21* 27 25 BUN 15 17 14 CREATININE 0.67* 0.68* 0.68* Last 3 LFTs Recent Labs 05/08/24 0121 05/07/24 0157 05/06/24 0951 AST 15 13 16 ALT 14 14 16 ALKPHOS 92 91 97 BILITOT 0.4 0.3 0.4 BILIDIR 0.1 <0.1 -- Last Ca, Mg, Phos Recent Labs 09/17/24 0039 CALCIUM 9.1 PHOS 2.8 MAGNESIUM 0.73 Last 3 Coags Recent Labs 09/17/24 0618 09/17/24 0039 09/16/24 1707 PT 11.7 11.7 11.9 INR 1.0 1.0 1.0 PTT 26 27 26 Last 3 ProBNP, Trop, CK No results for input(s): CK, TROPONINT, PROBNP in the last 168 hours. Last 3 TFT Recent Labs 05/06/24 0548 TSH 0.99 Last 3 Lipids Recent Labs 09/17/24 0039 09/16/24 1707 05/06/24 0548 CHLPL 203 -- 135 HDL 45 -- 46 LDLCHOL -- -- 69 LDLDIRECT 133 -- -- TRIG 147 174 101 Last 3 HgbA1C Recent Labs 09/17/24 0039 05/06/24 0548 HA1C 6.1* 6.0* Micro: - None Imaging/Studies: - I have reviewed all imaging for this admission. Assessment/Plan: Neuro - R occipitoparietal ICH with cerebral edema, mass affect and brain compression s/p R craniotomy. 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 - q1 neurochecks - SBP < 140 - Will place SCL TLC and begin hyperosmolar therapy with HTS, goal Na 145-155 - Analgesia: tylenol, PRN fentanyl - Sedation: Propofol as tolerated for comfort - Home meds: CV - rate controlled afib s/p watchman device - BP as above - c/w diltiazem for rate control - if MAP sustained < 65, IVF, consider pressors Pulm - - Goal PaO2 > 60, paCO2 35-45, O2 sats > 92% - Continue chest PT/pulm toilet - Ventilator liberation protocol - VAP precautions - Nebs PRN GI - - Start TF via OGT - maintain bowel reg - GI ppx with H2B FEN/ - Hyperchloremic metabolic acidosis - Avoid hypovolemia - Goal Na as above - ICU potassium repletion protocol - Hill for strict I/Os Heme - - goal Hgb > 7, INR < 1.5, Platelets > 100k - SCDs, chemoppx contraindicated Endo - - goal glucose 120-180 --> Accuchecks and ISS ID - Afebrile, reactive leukocytosis - Monitor off antibiotics - Reculture q72hr for temp > 101F --> UA, blood cx, sputum cx, CXR - acetaminophen PRN Core: Code status: FULL Dispo - ICU //////////////////////////////////////////////////////////////////////////////// //////////////////// /////////////////////////////////////////////////Attestation: IS PATIENT CRITICALLY ILL? Is there a high potential of sudden, clinically significant, or life threatening deterioration? Yes Is there a need for direct personal assessment and management to treat/prevent multiple vital organfailure/deterioration? Yes I personally performed 40 minutes of aggregate critical care time exclusive of procedures and teaching. This includes time spent during direct patient evaluation and reassessment, interpreting diagnostic tests, directing life and/or organ supporting interventions and documentation on the unit. Serenity Espinosa MD 09/17/2024 12:16 PM * Ezequiel Morales RN - 09/17/2024 6:46 AM EDT OUTCOME EVALUATION NOTE: OUTCOME SUMMARY: CTH and CTV obtained. 2nd CTH obtained. Pt sedated, Propofol at 20mcg/kg/min. Pt localizes on the RUE, withdraws in the RLE, extends on the RUE, and triple flexes on the LLE. Pt's corneal reflex now positive, positive gag and cough. R parietal AUBREY drain, on bulb suction, total output - 195mL. PRN Fentanyl 25mcg given x 2, Fentanyl 75mcg given x 1. Pt assisted mechanically on PS/CPAP 10, FiO2 40%, PEEP 8. SB to NSR in Telemetry. Was on Nicardipine but now OFF (see MAR). Vasotec given x 1. OGT on LIWS. Hill in place with AOUP. PLAN MOVING FORWARD: Q1 VS Q1 NC Q1 R femoral site checks SBP<140 OG on LIWS CPG GOAL OUTCOME EVALUATION: Problem: Fall Injury Risk Goal: Absence of Fall and Fall-Related Injury Outcome: Ongoing (Interventions Implemented as Appropriate) Problem: Restraint, Nonbehavioral (Nonviolent) Goal: Discontinuation Criteria Achieved Outcome: Ongoing (Interventions Implemented as Appropriate) Problem: Adjustment to Illness (Stroke, Hemorrhagic) Goal: Optimal Coping Outcome: Ongoing (Interventions Implemented as Appropriate) Problem: Bowel Elimination Impaired (Stroke, Hemorrhagic) Goal: Effective Bowel Elimination Outcome: Ongoing (Interventions Implemented as Appropriate) Problem: Cerebral Tissue Perfusion (Stroke, Hemorrhagic) Goal: Optimal Cerebral Tissue Perfusion Outcome: Ongoing (Interventions Implemented as Appropriate) Problem: Cognitive Impairment (Stroke, Hemorrhagic) Goal: Optimal Cognitive Function Outcome: Ongoing (Interventions Implemented as Appropriate) Problem: Communication Impairment (Stroke, Hemorrhagic) Goal: Effective Communication Skills Outcome: Ongoing (Interventions Implemented as Appropriate) Problem: Functional Ability Impaired (Stroke, Hemorrhagic) Goal: Optimal Functional Ability Outcome: Ongoing (Interventions Implemented as Appropriate) Problem: Pain (Stroke, Hemorrhagic) Goal: Acceptable Pain Control Outcome: Ongoing (Interventions Implemented as Appropriate) Problem: Respiratory Compromise (Stroke, Hemorrhagic) Goal: Effective Oxygenation and Ventilation Outcome: Ongoing (Interventions Implemented as Appropriate) Problem: Sensorimotor Impairment (Stroke, Hemorrhagic) Goal: Improved Sensorimotor Function Outcome: Ongoing (Interventions Implemented as Appropriate) Problem: Swallowing Impairment (Stroke, Hemorrhagic) Goal: Oral Intake without Aspiration Outcome: Ongoing (Interventions Implemented as Appropriate) Problem: Urinary Elimination Impaired (Stroke, Hemorrhagic) Goal: Effective Urinary Elimination Outcome: Ongoing (Interventions Implemented as Appropriate) Problem: Adult Inpatient Plan of Care Goal: Plan of Care Review Outcome: Ongoing (Interventions Implemented as Appropriate) Goal: Patient-Specific Goal (Individualized) Outcome: Ongoing (Interventions Implemented as Appropriate) Goal: Absence of Hospital-Acquired Illness or Injury Outcome: Ongoing (Interventions Implemented as Appropriate) Goal: Optimal Comfort and Wellbeing Outcome: Ongoing (Interventions Implemented as Appropriate) Goal: Readiness for Transition of Care Outcome: Ongoing (Interventions Implemented as Appropriate) * Dodie Deleon MD - 09/17/2024 6:18 AM EDT [facility] NEUROSURGERY PROGRESS NOTE ID: Lucero Bruno 74 y.o. female : 1950 LOS: 1 Neurosurgical Procedures this Admission: 09/16/24, Dr. Espinal: R craniotomy for IPH evacuation INTERVAL Hx: -Change in exam reported overnight -> another CTH done -This morning motor exam stable, pupils now equal and reactive -Na 141 MEDICATIONS: Scheduled Meds: insulin lispro 1-4 Units Subcutaneous Q4H CARLY multivitamin with minerals 1 tablet Per NG tube Daily polyethylene glycoL (MIRALAX) oral powder 17 g Oral Daily chlorhexidine 15 mL Oral BID famotidine 20 mg Per NG tube BID docusate sodium 100 mg Per NG tube BID And sennosides 17.6 mg Per NG tube BID dilTIAZem 60 mg Per NG tube Q6H CARLY Continuous Infusions: tube feeding diet niCARdipine 5 mg/hr (09/17/24 0855) sodium chloride 0.9% 100 mL/hr (09/17/24 0902) propofoL 20 mcg/kg/min (09/17/24 0735) PRN: fentaNYL (PF), 25 mcg, Q1H PRN glucose 40% oral geL, 15-30 g of glucose, Q15 Min PRN Or dextrose, 250 mL, Q15 Min PRN Or glucagon, 1 mg, Q15 Min PRN labetaloL, 10-20 mg, Q15 Min PRN enalaprilat, 1.25 mg, Q6H PRN bisacodyL, 10 mg, Daily PRN acetaminophen, 975 mg, Q6H PRN propofoL, 10 mg, Q10 Min PRN bacitracin zinc-polymyxin B, , PRN gelatin compressed, , PRN thrombin (Bovine), , PRN lidocaine-EPINEPHrine, , PRN EXAM: Temp: [36.4 ??C (97.5 ??F)-36.8 ??C (98.2 ??F)] Heart Rate: [56-80] Resp: [13-24] BP: (92-147)/(55-84) SpO2: [94 %-100 %] Heart Rate from SpO2: [56 bpm-80 bpm] I/O: Intake/Output Summary (Last 24 hours) at 09/17/2024 0914 Last data filed at 09/17/2024 0800 Gross per 24 hour Intake 2774.55 ml Output 1314 ml Net 1460.55 ml Drains: AUBREY with bloody output, 195cc GEN: Intubated and sedation paused NEURO: PERRL 3mm, reactive on pupillometer + corneals reflex + cough reflex + gag reflex MOTOR: RUE: localizing to noxious stimuli LUE: extending to noxious stimuli RLE: withdrawing to noxious stimuli LLE: triple flexing to noxious stimuli Crani cap CDI LABS: Recent Labs 09/17/24 0039 09/16/24 1707 09/16/24 1029 WBC 23.60* 16.82* 9.46 HGB 12.9 14.2 14.7 PLATELET 327 269 311 Recent Labs 09/17/24 0039 09/16/24 1029 NA 141 140 K 4.4 4.3 CL 108* 104 CO2 21* 27 BUN 15 17 CREATININE 0.67* 0.68* Recent Labs 09/17/24 0618 09/17/24 0039 09/16/24 1707 PT 11.7 11.7 11.9 INR 1.0 1.0 1.0 IMAGING: Results for orders placed or performed during the hospital encounter of 09/16/24 CT Head wo Contrast (Generic) (Exam End: 09/16/2024 5:26 PM) Result Value WORKSTATION ID [id number] Impression Interval expansion of now large right-sided temporal occipital intraparenchymal hemorrhage with significant mass effect resulting in 1 cm leftward midline shift. Per chart review, this patient was seen by neurosurgery and taken emergently to the OR. I have personally reviewed the image(s) and the resident's interpretation and agree with the findings, Lana Reinoso at 09/16/2024 6:01 PM Thank you for letting us participate in the care of this patient. If you are a health care provider and have any questions regarding this report, please contact the number below. For patients who have questions please contact the health ocular care technician that requested your imaging first. Electronically signed by: Lana Reinoso [facility] ([phone]), at 09/16/2024 6:[address] Head wo Contrast (Generic) (Exam End: 09/16/2024 11:21 PM) Result Value WORKSTATION ID [id number] Impression CT head: 1. Interval craniotomy with residual or recurrent hemorrhage right temporal and parietal lobe. 2. New hemorrhage right [...] in the care of this patient. If you are a health care provider and have any questions regarding this report, please contact the number below. For patients who have questions please contact the health ocular care technician that requested your imaging first. Electronically signed by: Armando Pan MD, [facility] ([phone]), at 09/17/2024 1:[address] Venogram Brain (Exam End: 09/16/2024 11:21 PM) Result Value WORKSTATION ID [id number] Impression CT head: 1. Interval craniotomy with residual or recurrent hemorrhage right temporal and parietal lobe. 2. New hemorrhage right [...] in the care of this patient. If you are a health care provider and have any questions regarding this report, please contact the number below. For patients who have questions please contact the health ocular care technician that requested your imaging first. Electronically signed by: Armando Pan MD, [facility] ([phone]), at 09/17/2024 1:42 AM XR Chest One View (Exam End: 09/16/2024 11:00 PM) Result Value WORKSTATION ID [id number] Impression Satisfactorily positioned enteric and endotracheal tubes. Left lower lobe atelectasis versus pneumonia. Thank you for letting us participate in the care of this patient. If you are a health care provider and have any questions regarding this report, please contact the number below. For patients who have questions please contact the health ocular care technician that requested your imaging first. Electronically signed by: Pamela Beard MD, [facility] ([phone]), at 09/17/2024 12:09 AM XR Abdomen 1 view (Generic) (Exam End: 09/16/2024 11:00 PM) Result Value WORKSTATION ID [id number] Impression Satisfactorily positioned enteric and endotracheal tubes. Left lower lobe atelectasis versus pneumonia. Thank you for letting us participate in the care of this patient. If you are a health care provider and have any questions regarding this report, please contact the number below. For patients who have questions please contact the health ocular care technician that requested your imaging first. Electronically signed by: Pamela Beard MD, [facility] ([phone]), at 09/17/2024 12:[address] Head wo Contrast (Generic) (Exam End: 09/17/2024 4:51 AM) Result Value WORKSTATION ID [id number] Impression Increased size and density of dominant right parietal hematoma, and of hemorrhage extending medially into the basal ganglia. Foci of thalamocapsular hemorrhage on the right are stable. No evidence of progressive intraventricular hemorrhage or ventricular dilation. No definitive increase in leftward midline shift or herniation. Thank you for letting us participate in the care of this patient. If you are a health care provider and have any questions regarding this report, please contact the number below. For patients who have questions please contact the health ocular care technician that requested your imaging first. Electronically signed by: Elvin Bolden DO, [facility] ([phone]), at 09/17/2024 8:38 AM Assessment: 74 y.o. female with PMHx notable for Afib (taking ASA, previously on apixaban-stopped taking after IPH in April 2024), CHRISTOPHER, HLD, BMI of 36, prior IPH 04/2024 who presented to hospital 09/16/24 for placement of Watchman with cardiology. She developed headaches and nausea post op and CT scan noted large R rfjqpxzl-viqaeab-skbhugyqe IPH. Repeated CTH wo contrast overnight showing increased hemorrhage on R but exam remains stable. Will defer further neurosurgical intervention at this time and continue to closely monitor exam. Contusions are likely to evolve in coming days with increased edema so advise hypernatremia with Na goal 140-150. Plan: -Q1h neuro checks -SBP 90-160 -DVT ppx with SCDs, hold chemoppx (sustained this bleed on intra-procedure heparin used for Watchman placement) -Hold antiplatelets/anticoagulants -Na goal 140-150 -Keep and record AUBREY output -Wean sedation and wean to extubate as able -Rest of care per primary For questions please call NSGY pager [phone] Dodie Deleon MD Clinical Documentation Improvement: Active Hospital Problems Diagnosis Presence of Watchman left atrial appendage closure device Resolved Hospital Problems No resolved problems to display. Associated attestation - Sushila Espinal MD - 09/17/2024 1:58 PM EDT I was the attending physician supervising the resident in the above care. I agree with the history,physical exam, assessment, and plan. Patient remains intubated with low level of sedation. No EO, pupils equal and reactively briskly, + corneals, + cough/gag. She is following commands intermittently on the right side. Moving RUE spontaneously. Left side plegic. I discussed the patient's care with the patient's significant other at bedside. I explained that the patient developed multiple spots of new hemorrhage near the original evacuated hematoma. These have slightly enlarged overnight but overall the amount of midline shift is reduced compared to before surgery. Clinically, the patient is stable and we will continue to closely monitor in the ICU for now . However, if the patient declines clinically with or without radiographic worsening, I would recommend another operation to remove the bone flap. The patient's significant other expresses understanding and all questions were answered. Sushila Espinal MD PhD [employer] Section of Neurosurgery Department of Surgery [facility] [email or web address] * Elvin Vallecillo [facility] - 09/17/2024 4:54 AM EDT Illness Severity Stable Respiratory Modalities: PS/CPAP (S) 360/+(S) 8, x15 41 % ((S) 8 ml/kg) Airway: 8.0 @ 22 Teeth Patient Summary Admitted: 09/16/2024 Age: 74 y.o. Code Status: FULL. HPI: Patient s/p Watchman procedure, developed 10/10 worst headache of life, CT scan revealed largeR IPH. Neuro exam continued to decline, was given Mannitol and 23%, intubated while in CT and brought emergently to OR PMHx: afib Events w/ date: 09/16: Post Watchman procedure_stroke_inubated_OR for evacuation 09/16 Overnight: Patient had CT scan x2 overnight, PEEP increased to +8, FiO2 decreased to 40%, no incidents or marked distress of note. Action List Medications/ACT: Situational Awareness & Contingency Planning * Abimael Nuñez RCP - 09/16/2024 6:13 PM EDT Pt emergently intubated in CT scan and then brought directly to the OR. ETCO2 maintained at 35 postintubation. Ventilator Mode: VC Tidal Volume Set: 440 Resp Rate Set: 16 PEEP Set: 5 FiO2: 100 % Ventilator Measurements: Resp: 16 Vt Exhaled: 443 PIP: 19 MAP: 7.6 Plateau Press: Ve: 7.1 PEEP: SpO2: 98 % EtCO2: 35 mmHg Airway: 8.0 @ 22 Teeth * Amari Colbert PA - 09/16/2024 4:20 PM EDT 09/16/24 4:20 PM Luceropia Bruno 1950 Called to patient bedside. Nurse concerned for new onset headache. Terrible feeling, 10/10 headache. +nauseas, mild vomiting. Hemodynamics stable BP 128/70 HR 64 650mg tylenol did not help. Neuro exam without deficit. Alert, oriented, no concerns aside from headache. She was heparinized for procedure. No concerns from anesthesia standpoint during procedure. Prior ICH. Give protamine, 20mg after test dose. Give fent [address] scan head now to look for ICH/other bleed Will monitor closely Keep overnight. Amari Colbert PA-C Interventional Cardiology Structural Heart Team [facility] Pager [phone] documented in this encounter H&P Notes * Umm Goodrich MD - 09/28/2024 11:49 AM EST Neurology Admission History and Physical Patient name: Lucero Bruno Date of : 1950 PCP: Leila Manjarrez Stroke Assessment: Date last well known:: 09/16/24 Time last well known:: 1619 Date of discovery of symptoms:: 09/16/24 Time of discovery of symptoms:: 1619 The time difference from patients last known well to ED arrival OR inpatient stroke alert was (choose one): Less than or equal to 4.5 hours Date acute stroke team was at bedside:: 09/16/24 Time acute stroke team was at bedside:: 1645 CT interpretation date: 09/16/24 CT interpretation time:: 1445 Was dysphagia screen performed?: No CC: R IPH ID: Lucero Bruno is a 74 y.o. female with PMH of R occipital hemorrhage, chronic a-fib presented for watchman procedure. Post operatively at approximately 4:20 pm began complaining of severe 10/10 headache, taken to [facility] were an enlarged R IPH with mass effect and midline shift was identified. Stroke alert called. At that time NIHSS 22. SBP in 130s. BG 202. She was subsequently intubated and taken to surgery for Craniotomy with evaluation by neurosurgery followed by admission to NCCU for further monitoring. Course complicated by failed extubation. She was re-extubated on 09/26 and vascular neurology re- engaged for possible downgrade. HPI: Per PACU nurse present at bedside, patient received heparin during the Watchman procedure. After finding that bleed on CT head she was given protamine for reversal. At the time of Initial assessment during stroke alert patient is laying in the CT machine. She is alert tracking and able to follow simple commands. She has left-sided weakness. Right gaze preferenceunable to cross midline to the left. Life safety as well as anesthesia prep were present in the room. Neurosurgery was contacted as well as neurocritical care. Blood pressure was stable. Patient continued to follow commands on the right. Given concern for ability to protect her airway she was intubated in the CT 2. Following my assessment, neurosurgery was discussing possible return to the OR forevacuation versus possible transfer to the neuro ICU. Interval Hx: - Patient extubated on 09/26 - She continues to have left upper extremity weakness, expressive aphasia, eyelid apraxia as well as left sided neglect vs. Sensory loss. - CTH on 09/26 without hemorrhage expansion. Home Medications: No current facility-administered medications on file prior to encounter. Current Outpatient Medications on File Prior to Encounter Medication Sig Dispense Refill aspirin EC 81 mg EC (DR) tablet Take 1 tablet by mouth daily. acetaminophen (Tylenol) 325 mg tablet Take 2 tablets by mouth every 6 hours as needed for Pain. cholecalciferol (Vitamin D3) 1,000 unit tablet Take 1,000 Units by mouth Daily. dilTIAZem CD (Cardizem CD) 300 mg CD (ER) 24 hr casule Take 1 capsule by mouth daily. traMADoL (Ultram) 50 mg tablet Take 50 mg by mouth Every 6 hours as needed. Current Medications: Scheduled Meds: amLODIPine 5 mg Per NG tube Daily piperacillin-tazobactam 3.375 g Intravenous Q8H insulin lispro 0-3 Units Subcutaneous Q4H CARLY ipratropium-albuteroL 3 mL Nebulization Q4H heparin (porcine) 5,000 Units Subcutaneous Q8H CARLY insulin lispro 2-12 Units Subcutaneous Q4H CARLY dilTIAZem 90 mg Per NG tube Q6H CARLY multivitamin with minerals 1 tablet Per NG tube Daily Past Medical & Surgical History: Past Medical History: Diagnosis Date Irregular heart beat Obstructive sleep apnea Past Surgical History: Procedure Laterality Date PRG ECHOENCEPHALOGRAPH REAL TIME Right 09/16/2024 ULTRASOUND USE (WRVU 0.63) performed by Sushila Espinal MD at [facility] MA[facility] OR PRO LAPAROSCOPY W TOT HYSTERECTUTERUS <=250 GRAM W TUBE/OVARY N/A 04/23/2024 LAPAROSCOPY, TOTAL HYST, UTERUS<250GMS, REM TUBE &/OR OVARY (WRVU 15) performed by Xiomara Burkett MD at [facility] MAIN OR PRO OPEN SKULL EVAC INTRACEREBR BLOOD Right 09/16/2024 @CRANI-HEMATOMA EVACUATION, INTRACEREBRAL (WRVU 28.09) performed by Sushila Espinal MD at [facility] MAIN OR PRO PERQ CLSR TCAT L ATR APNDGE W/ENDOCARDIAL IMPLNT N/A 09/16/2024 @PERQ TRANSCATH CLOSURE LEFT ATRIAL APPENDAGE W ENDOCARDIAL IMPLANT, INC RAD S&I (WRVU 14) performed by Duane Causey MD at [facility] CATH LABS Allergy: Allergies Allergen Reactions Oxycodone-Acetaminophen Other (See Comments) Other reaction(s): hallucinations Alendronate Sodium Nausea Only Contact Metal Agent Family History: History reviewed. No pertinent family history. Social History Socioeconomic History Marital status: Spouse name: Not on file Number of children: Not on file Years of education: Not on file Highest education level: Not on file Occupational History Not on file Tobacco Use Smoking status: Former Current packs/day: 0.00 Average packs/day: 2.0 packs/day for 30.0 years (60.0 ttl pk-yrs) Types: Cigarettes Start date: 1972 Quit date: 2002 Years since quittin.8 Smokeless tobacco: Never Vaping Use Vaping status: Never Used Substance and Sexual Activity Alcohol use: Never Drug use: Never Sexual activity: Never Other Topics Concern Not on file Social History Narrative Not on file Social Determinants of Health Financial Resource Strain: Medium Risk (03/03/2024) Overall Financial Resource Strain (CARDIA) Difficulty of Paying Living Expenses: Somewhat hard Food Insecurity: No Food Insecurity (09/17/2024) Hunger Vital Sign Worried About Running Out of Food in the Last Year: Never true Ran Out of Food in the Last Year: Never true Transportation Needs: No Transportation Needs (09/17/2024) PRAPARE - Transportation Lack of Transportation (Medical): No Lack of Transportation (Non-Medical): No Physical Activity: Not on file Intimate Partner Violence: Not At Risk (09/17/2024) IPV Inpatient Questions Prevent Contact with Others: no Feels Threatened by Someone: no Feels Unsafe at Home: no Physical Signs of Abuse Present: no Housing Stability: Low Risk (09/17/2024) Housing Stability Vital Sign Unable to Pay for Housing in the Last Year: No Number of Times Moved in the Last Year: 0 Homeless in the Last Year: No Review of systems: Endorses some abdominal pain in the area of Heparin injections. [x] Review of systems otherwise negative Physical Exam: GCS Scale Vitals: Temp: [36.8 ??C (98.2 ??F)-37.2 ??C (99 ??F)] Heart Rate: [72-118] Resp: [15-27] BP: (98-170)/(29-90) SpO2: [92 %-100 %] Heart Rate from SpO2: [66 bpm-114 bpm] NG tube in place. Stridor. Does not appear in acute distress GEN-following commands on the R upper extremity and bilateral lowers. Mute with no verbal output. 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 MOTOR- no movement in the left upper extremity SENSATION -nods yes to sensory testing on the right. No response on the left. Possible component ofleft hemineglect. CEREBELLUM -finger to nose intact on right though with difficulty. REFLEXES - bilateral dalton and babinski with diffusely brisk reflexes. NIH Stroke Scale NIH Stroke Scale Date 09/16/24 NIH Stroke Scale Time 1645 Level of Consciousness 0 LOC Questions 2 LOC Commands 0 Best Gaze 1 Vision 2 Facial Palsy 0 Motor Arm, Left 4 Motor Arm, Right 0 Motor Leg, Left 4 Motor Leg, Right 0 Limb Ataxia 0 Sensory 2 Best Language 3 Dysarthria 2 Extinction and Inattention: 2 NIH Total Score 22 Labs: Recent Results (from the past 24 hour(s)) POC, GLUCOSE Result Value Ref Range Glucometer, POC 145 65 - 199 mg/dL POC, GLUCOSE Result Value Ref Range Glucometer, POC 123 65 - 199 mg/dL Potassium Result Value Ref Range Potassium 4.0 3.5 - 5.0 mMol/L POC, GLUCOSE Result Value Ref Range Glucometer, POC 144 65 - 199 mg/dL POC, GLUCOSE Result Value Ref Range Glucometer, POC 125 65 - 199 mg/dL Basic Metabolic Panel Result Value Ref Range Glucose 161 65 - 199 mg/dL Blood Urea Nitrogen 21 (H) 8 - 18 mg/dL Creatinine 0.49 (L) 0.70 - 1.20 mg/dL Sodium 138 135 - 145 mMol/L Potassium 4.0 3.5 - 5.0 mMol/L Chloride 106 98 - 107 mMol/L Carbon Dioxide 22 22 - 31 mMol/L Anion Gap 10 5 - 15 mMol/L Calcium 8.3 (L) 8.5 - 10.5 mg/dL Est Glomerular Filtration Rate - Female 100 mL/min/1.73 m?? Magnesium Result Value Ref Range Magnesium 0.82 0.69 - 1.07 mMol/L Phosphorus Result Value Ref Range Phosphorus 2.7 2.5 - 4.5 mg/dL CBC (with Diff) Result Value Ref Range White Blood Cell 35.37 (CRIT) 4.00 - 9.50 x10(3)/mcL Red Blood Cell 3.70 (L) 4.00 - 5.21 x10(6)/mcL Hemoglobin 11.0 (L) 11.7 - 15.5 g/dL Hematocrit 34.0 (L) 35.7 - 45.8 % Mean Cell Volume 91.9 82.6 - 94.4 fL Mean Cell Hemoglobin 29.7 27.1 - 32.0 pg Mean Cell Hemoglobin Concentration 32.4 31.7 - 35.0 g/dL Platelet 443 (H) 145 - 357 x10(3)/mcL Mean Platelet Volume 10.2 7.6 - 12.9 fL RDW Standard Deviation 43.8 37.0 - 46.0 fL RDW coefficient of variation 13.7 11.5 - 14.1 % NRBC% auto 0.0 % NRBC Absolute <0.01 <0.01 x10(3)/mcL Neutrophil % 87.0 % Neutrophil Absolute (ANC) - Automated 30.79 (H) 1.70 - 6.10 x10(3)/mcL Lymph % 4.2 % Lymph Absolute 1.50 0.90 - 3.20 x10(3)/mcL Monocyte % 4.5 % Monocyte Absolute 1.60 (H) 0.30 - 0.90 x10(3)/mcL Eos % 0.5 % Eos Absolute 0.16 0.00 - 0.40 x10(3)/mcL Basophil % 0.3 % Baso Absolute 0.09 0.00 - 0.10 x10(3)/mcL Immature Gran % 3.5 % Immature Gran Absolute 1.23 (H) 0.00 - 0.04 x10(3)/mcL Troponin-T, High Sensitivity Result Value Ref Range Troponin-T, High Sensitivity Initial 15 (H) <=14 ng/L Scan, Peripheral Blood Result Value Ref Range RBC Morphology Abnormal Platelet Estimate Increased (A) Normal Polychromasia Present WBC MORPHOLOGY See Comment (A) (none) POC, GLUCOSE Result Value Ref Range Glucometer, POC 174 65 - 199 mg/dL Troponin-T, High Sensitivity 1 Hour Result Value Ref Range Troponin-T, High Sensitivity 16 (H) <=14 ng/L Troponin-T, HS 1 hr delta 1 ng/L Troponin-T, High Sensitivity 3 Hour Result Value Ref Range Troponin-T, High Sensitivity 16 (H) <=14 ng/L Troponin-T, HS 3 hr delta POC, GLUCOSE Result Value Ref Range Glucometer, POC 161 65 - 199 mg/dL Assessment and Plan: Lucero Bruno is a 74 y.o. female w/ PMH of R occipital hemorrhage, chronic a-fib presented forwatchman procedure. Post operatively at approximately 4:20 pm began complaining of severe 10/10 headache, taken to CTH were an enlarged R IPH with mass effect and midline shift was identified. Strokealert called. At the time of my assessment patient is alert, following commands, moving her right si de and able to sustain antigravity. Unable to move left side. Pinpoint un- reactive L pupil and blown pupil on the right. NIHSS 22. SBP in 130s. BG 202. 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 She does however have a history of atrial fibrillation and was here for watchman procedure. Heparin was given during the procedure which isthe likely cause of her hemorrhage. Given the severity of the bleed as well as significant mass effect and midline shift on CTH, neurosurgery was engaged, and given the size and extent of bleed she was taken for evaluation with craniotomy and admitted to NCCU for monitoring. NCCU course was complicated by failed extubation. She was re- extubated on 09/26 and has remained clinically stable. Vascular neurology re- engaged for possible downgrade. White cell count is decreasing today and she does not have a clear source of infection other than her known pneumonia which is being treated on antibiotics. ID has been consulted, we will await theirrecommendations regarding the white blood cell count while we continue to monitor her clinically. She was also seen by speech today but was unable to get a formal assessment as she became tachycardic, we will try again at a later time and in the meantime start discussions regarding possible PEG placement for nutritional support while she regains strength. Alteplase: IV Thrombolytics decision time: 1714 Was IV Thrombolytics given?: No # R IPH -Admit to neurology, NSCU level of care -Neuro check & vitals Q2hrs / Q2hrs -Permissive HTN, treat SBP >220 with prn labetalol, enalaprilat -Check CBC, BMP, LFT, lipid profile, HbA1c, Mg, Phos, UA -TTE -12 lead EKG -Telemetry -MRI brain wo contrast -CTA head & neck -PT/OT/CUTTER AND EDGE TRIMMER -Neurosurgery consulted # Leukocytosis # Pneumonia - on Zosyn (09/24 - 09/29) - CBC - ID consult - C. Diff negative # Prophylaxis -heparin 5000units SC Q8H -RBOs -SCDs # Supportive care -NPO -Tylenol PRN -Up with assistance # FULL code Stroke Navigator Completed: Yes Umm Goodrich MD Vascular Neurology Pager [phone] Standard [facility] Swallow Screen: This screen is to be used to document a Swallow Screen prior to ingestion of water and /or oral medications for patients with possible stroke (Ischemic or Hemorrhagic). Exclusion Criteria: A swallow screen is not to be performed on patients who: have a decreased level of consciousness. are not able to follow simple commands. are hypoxic, or have increasing O2 needs or may need to be intubated. have a G/J tube for nutrition. have a recent history of a swallowing disorder *These patients should remain NPO (HOLD MEDS) and the physician notified for further orders. Swallow Screen Using Water: None of the Exclusion Criteria as mentioned above is present? Patient is alert and sitting upright? Able to close lips and tongue is midline? Able to cough, manage oral secretions with dry voice? ONLY IF ABOVE ALL YES, Able to swallow 30 ml of water without coughing, displaying a wet voice or choking? Repeat Twice. If YES to all responses, proceed with water and oral medications as well as diet as medical provider deems appropriate. Consider CUTTER AND EDGE TRIMMER consult for full evaluation and diet recommendations. If NO to any of the responses, stop immediately, keep patient NPO and notify physician. Associated attestation - Dinesh Bauer MD - 09/28/2024 3:04 PM EST Neurology Staff Note I have reviewed the resident's history during the visit and I agree with the details as written. Myphysical examination confirms the resident's findings. The assessment and plan were formulated in discussion with me at the time of the visit and I agree with them as documented. She is more alert today and is comfortable. She does indicate there is some discomfort in the rightlower quadrant but there is no real tenderness there. Perhaps this is from where some of her Lovenox injections have been given. Left- sided paralysis remains. Tongue movement is very poor and she is nearly aphonic. Discussed with speech language pathology and the neurocritical care team. We will ask them internal medicine consultation team to follow her given the ongoing complex medical issues including the possibility of an occult infection, and unusualorganism in the BAL. I think we should proceed to placement of a gastrostomy tube and we will talk to her and her family and interventional radiology about this. 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 Post watchman procedure while pt was in PACU she developed severe 10/10 CABA that did not resolve w/ tylenol. This was associated with nausea and one episode of emesis. SBP was in the 130s at this timeand there were reportedly no focal neuro deficits. She was heparinized during her procedure and received 20mg of protamine at the time of her CABA and was taken to a STAT CTH. Stroke alert was called while she was in the CT scanner. She was found to have a large R IPH w/ mass effect and midline shift. At that time she was reportedly alert and following commands, flaccid on the left with a L blown pupil. NSGY was consulted at this time. She received 90g of mannitol and 23.4% then was intubated for airway protection while in CT. She was taken directly to the OR, given 1g of Keppra and 1u of platelets. OR course was reported to be uneventful, she received an additional 50g of mannitol . EBL 200cc. Bone was replaced at the end of the case. She arrived to the NCCU still intubated for close neurological monitoring. ROS: Unable to assess, pt is intubated and sedated. Past Medical History: Diagnosis Date Irregular heart beat Obstructive sleep apnea Past Surgical History: Procedure Laterality Date PRO LAPAROSCOPY W TOT HYSTERECTUTERUS <=250 GRAM W TUBE/OVARY N/A 04/23/2024 LAPAROSCOPY, TOTAL HYST, UTERUS<250GMS, REM TUBE &/OR OVARY (WRVU 15) performed by Xiomara Burkett MD at [facility] MA[facility] OR Social History Tobacco Use Smoking status: Former Current packs/day: 0.00 Average packs/day: 2.0 packs/day for 30.0 years (60.0 ttl pk-yrs) Types: Cigarettes Start date: 1972 Quit date: 2002 Years since quittin.8 Smokeless tobacco: Never Substance Use Topics Alcohol use: Never Medications Prior to Admission Medication Sig Dispense Refill Last Dose aspirin EC 81 mg EC (DR) tablet Take 1 tablet by mouth daily. 09/16/2024 acetaminophen (Tylenol) 325 mg tablet Take 2 tablets by mouth every 6 hours as needed for Pain. 09/15/2024 cholecalciferol (Vitamin D3) 1,000 unit tablet Take 1,000 Units by mouth Daily. 09/15/2024 dilTIAZem CD (Cardizem CD) 300 mg CD (ER) 24 hr casule Take 1 capsule by mouth daily. 09/16/2024 traMADoL (Ultram) 50 mg tablet Take 50 mg by mouth Every 6 hours as needed. Vital Sign Ranges: Last value Range last 24 hrs Temperature Temp: 36.4 ??C (97.5 ??F) Temp: [36.4 ??C (97.5 ??F)-36.7 ??C (98.1 ??F)] Heart Rate Heart Rate: 64 Heart Rate: [57-78] Blood Pressure BP: 142/68 BP: (92-147)/(55-84) Respiratory Rate Resp: 24 Resp: [13-24] SpO2 SpO2: 95 % SpO2: [94 %-98 %] Art BP BP (Arterial Line): 129/62 BP (Arterial Line): (129-133)/(62) Lines/Drains/Airways: PIV 09/16/24 1305 1 in length;18 gauge median cubital vein (antecubital fossa), right (Active) Indication/Daily Review of Necessity fluid therapy continuous;medication therapy continuous 09/16/242208 Site Preparation/Maintenance dressing: dry and intact 09/16/242208 Securement catheter stabilization device, secured with;site guard in place 09/16/242208 Patency/Maintenance infusing;alcohol impregnated cap applied 09/16/242208 Phlebitis 0-->no symptoms 09/16/242208 Infiltration 0-->no symptoms 09/16/242208 Site Signs/Symptoms no drainage;no streak formation;no palpable cord;no pain;no warmth;no swelling;no redness 09/16/242208 PIV 09/16/242210 20 gauge metacarpal vein (top of hand), right (Active) Indication/Daily Review of Necessity fluid therapy intermittent;medication therapy intermittent 09/16/242208 Site Preparation/Maintenance dressing: dry and intact 09/16/242208 Securement site guard in place;catheter stabilization device, secured with 09/16/242208 Patency/Maintenance alcohol impregnated cap applied 09/16/242208 Phlebitis 0-->no symptoms 09/16/242208 Infiltration 0-->no symptoms 09/16/242208 Site Signs/Symptoms no drainage;no streak formation;no palpable cord;no pain;no warmth;no swelling;no redness 09/16/242208 PIV 09/16/242215 20 gauge median cubital vein (antecubital fossa), left (Active) Indication/Daily Review of Necessity fluid therapy intermittent;medication therapy intermittent 09/16/242208 Site Preparation/Maintenance dressing: dry and intact 09/16/242208 Securement catheter stabilization device, secured with;site guard in place 09/16/242208 Patency/Maintenance flushed without difficulty;alcohol impregnated cap applied 09/16/242208 Phlebitis 0-->no symptoms 09/16/242208 Infiltration 0-->no symptoms 09/16/242208 Site Signs/Symptoms no drainage;no streak formation;no palpable cord;no redness;no warmth;no swelling;no pain 09/16/242208 Drain/Device Site 09/16/24 Right parietal region collapsible closed device (Active) Urethral Catheter 09/16/24 latex 14 5 10 (Active) Indication/Necessity Q1-2hr UOP in ICU patient without alternative 09/16/242218 Securement secured to upper leg with adhesive device 09/16/242218 Maintenance Closed system maintained;Catheter secured to leg;Collection bag maintained below the bladder;Urine flow is unobstructed;Collection bag emptied when half full or at least every 4 hours using a separate container for this patient, drainage spigot not allowed to touch container;Hand hygiene performed before and after touching catheter and collection system 09/16/242218 Foreskin not applicable 09/16/242218 Tolerance no signs/symptoms of discomfort 09/16/242218 Urine Characteristics clear yellow 09/16/242218 ETT Airway 09/16/24 (Active) Airway Size Verification 8 mm 09/16/242207 Site Changed to: right side of mouth 09/16/242207 Appearance clean 09/16/242207 Tube Securement endotracheal (ET) tube nava 09/16/242207 Tube Reference Point teeth 09/16/242207 Airway Tube Secured At (cm) 21 09/16/242207 Tube Securement Date 09/16/24 09/16/242207 Bite Block none 09/16/242207 Manual Resuscitator at bedside Yes 09/16/242207 Arterial Line 09/16/24 1755 radial artery, right 20 gauge (Active) Daily Review Of Necessity completed 09/16/242208 Dressing dressing dry and intact 09/16/242208 Arterial Catheter Securement site guard in place 09/16/242208 Lumen Patency/Care flushed without difficulty;blood return present;alcohol impregnated cap applied 09/16/242208 Waveform normal 09/16/242208 Phlebitis 0-->no symptoms 09/16/242208 Infiltration 0-->no symptoms 09/16/242208 Site Signs/Symptoms no drainage;no streak formation;no palpable cord;no pain;no warmth;no swelling;no redness 09/16/242208 Pressure Catheter Interventions line leveled/zeroed;system flushed 09/16/242208 Incision 09/16/24 Right parietal region other (see comments) (Active) Dressing other (see comments) 09/16/242046 Labs: Recent Results (from the past 24 hour(s)) Type and Screen Future Surgery, [facility] SAME DAY PROGRAM ONLY) Result Value Ref Range PATIENT HISTORY Found Expires at 2359 on: 09-19-2024 ABORH Type O POSITIVE ANTIBODY SCREEN AUTOMATED Negative T&S only valid at [facility] LAB CBC (with Diff) Result Value Ref Range White Blood Cell 9.46 4.00 - 9.50 x10(3)/mcL Red Blood Cell 5.04 4.00 - 5.21 x10(6)/mcL Hemoglobin 14.7 11.7 - 15.5 g/dL Hematocrit 45.6 35.7 - 45.8 % Mean Cell Volume 90.5 82.6 - 94.4 fL Mean Cell Hemoglobin 29.2 27.1 - 32.0 pg Mean Cell Hemoglobin Concentration 32.2 31.7 - 35.0 g/dL Platelet 311 145 - 357 x10(3)/mcL Mean Platelet Volume 10.2 7.6 - 12.9 fL RDW Standard Deviation 40.2 37.0 - 46.0 fL RDW coefficient of variation 12.2 11.5 - 14.1 % NRBC% auto 0.0 % NRBC Absolute <0.01 <0.01 x10(3)/mcL Neutrophil % 68.0 % Neutrophil Absolute (ANC) - Automated 6.43 (H) 1.70 - 6.10 x10(3)/mcL Lymph % 22.1 % Lymph Absolute 2.09 0.90 - 3.20 x10(3)/mcL Monocyte % 7.0 % Monocyte Absolute 0.66 0.30 - 0.90 x10(3)/mcL Eos % 2.1 % Eos Absolute 0.20 0.00 - 0.40 x10(3)/mcL Basophil % 0.4 % Baso Absolute 0.04 0.00 - 0.10 x10(3)/mcL Immature Gran % 0.4 % Immature Gran Absolute 0.04 0.00 - 0.04 x10(3)/mcL Basic Metabolic Panel Fasting required Result Value Ref Range Glucose 111 (H) 65 - 99 mg/dL Blood Urea Nitrogen 17 8 - 18 mg/dL Creatinine 0.68 (L) 0.70 - 1.20 mg/dL Sodium 140 135 - 145 mMol/L Potassium 4.3 3.5 - 5.0 mMol/L Chloride 104 98 - 107 mMol/L Carbon Dioxide 27 22 - 31 mMol/L Anion Gap 9 5 - 15 mMol/L Calcium 9.5 8.5 - 10.5 mg/dL Est Glomerular Filtration Rate - Female 93 mL/min/1.73 m?? Fasting Status Yes ABORH RECHECK (PATIENT HISTORY FOUND) Result Value Ref Range ABORH Recheck Progress Complete CBC (with Diff) Result Value Ref Range White Blood Cell 16.82 (H) 4.00 - 9.50 x10(3)/mcL Red Blood Cell 4.72 4.00 - 5.21 x10(6)/mcL Hemoglobin 14.2 11.7 - 15.5 g/dL Hematocrit 42.8 35.7 - 45.8 % Mean Cell Volume 90.7 82.6 - 94.4 fL Mean Cell Hemoglobin 30.1 27.1 - 32.0 pg Mean Cell Hemoglobin Concentration 33.2 31.7 - 35.0 g/dL Platelet 269 145 - 357 x10(3)/mcL Mean Platelet Volume 10.3 7.6 - 12.9 fL RDW Standard Deviation 40.4 37.0 - 46.0 fL RDW coefficient of variation 12.3 11.5 - 14.1 % NRBC% auto 0.0 % NRBC Absolute <0.01 <0.01 x10(3)/mcL Neutrophil % 79.2 % Neutrophil Absolute (ANC) - Automated 13.33 (H) 1.70 - 6.10 x10(3)/mcL Lymph % 15.0 % Lymph Absolute 2.52 0.90 - 3.20 x10(3)/mcL Monocyte % 4.0 % Monocyte Absolute 0.67 0.30 - 0.90 x10(3)/mcL Eos % 1.1 % Eos Absolute 0.18 0.00 - 0.40 x10(3)/mcL Basophil % 0.2 % Baso Absolute <0.04 0.00 - 0.10 x10(3)/mcL Immature Gran % 0.5 % Immature Gran Absolute 0.09 (H) 0.00 - 0.04 x10(3)/mcL Prothrombin Time Result Value Ref Range Prothrombin Time 11.9 9.4 - 12.5 sec International Normalization Ratio 1.0 <=4.9 APTT Result Value Ref Range Partial Thromboplastin Time 26 25 - 37 sec Green Tube HOLD Result Value Ref Range Green Hold Hold for Add-on Triglyceride Result Value Ref Range Triglyceride 174 mg/dL Prepare Platelets, Apheresis Result Value Ref Range Status Information Issued Product Identification APH-PLTS Unit Number [id number] Product Code [id number] Unit Blood Type APOS Specimen Expiration Date 811206065685 Volulme 236 Issue Date / Time [id number] POC, GLUCOSE Result Value Ref Range Glucometer, POC 170 65 - 199 mg/dL Prepare RBC Result Value Ref Range Status Information Returned Product Identification RBC Unit Number [id number] Product Code E3201O18 Unit Blood Type OPOS Specimen Expiration Date Volulme 350 Issue Date / Time Status Information Returned Product Identification RBC Unit Number [id number] Product Code [id number] Unit Blood Type OPOS Specimen Expiration Date Volulme 350 Issue Date / Time Status Information Returned Product Identification RBC Unit Number [id number] Product Code J1039T86 Unit Blood Type OPOS Specimen Expiration Date Volulme 350 Issue Date / Time Imaging: Results for orders placed or performed during the hospital encounter of 09/16/24 CT Head wo Contrast (Generic) (Exam End: 09/16/2024 5:26 PM) Result Value WORKSTATION ID [id number] Narrative EXAMINATION: CT HEAD WO CONTRAST (GENERIC) CLINICAL HISTORY: prior (04/2024) ICH, severe new headache now post procedure. NON -CON only TECHNIQUE: CT head performed without intravenous contrast administration. COMPARISON: CT head without contrast 05/08/2024. FINDINGS: Significant interval enlargement of the right temporal occipital lobe intraparenchymal hemorrhage now measuring up to 8.1 x 5 cm with 1 cm of right to left midline shift. The right lateral ventricle is compressed and there is effacement of the ambient cistern and narrowing of the left. Right cerebral sulcal narrowing. Right uncal and subfalcine herniation. Mildly increased vasogenic edema in the right occipital lobe. Jugular narrowing without evidence for CSF entrapment. Right frontotemporal subdural hematoma measures up to 0.7 cm in thickness. Thin subdural hematoma along the falx and right tentorium. Probable scattered right cerebral subarachnoid hemorrhage as well. Impression Interval expansion of now large right-sided temporal occipital intraparenchymal hemorrhage with significant mass effect resulting in 1 cm leftward midline shift. Per chart review, this patient was seen by neurosurgery and taken emergently to the OR. I have personally reviewed the image(s) and the resident's interpretation and agree with the findings, Lana Reinoso at 09/16/2024 6:01 PM Thank you for letting us participate in the care of this patient. If you are a health care provider and have any questions regarding this report, please contact the number below. For patients who have questions please contact the health ocular care technician that requested your imaging first. Electronically signed by: Lana Reinoso [facility] ([phone]), at 09/16/2024 6:01 PM Cardiac Catheterization (Exam End: 09/16/2024 3:16 PM) Narrative [facility] Cardiac Catheterization/Intervention Report Patient Name: Lucero Bruno Procedure Date: 09/16/2024 A #: [id number] Primary Physician: Duane Causey V Case #: [id number] File Name: [id number] Catheterization Order Number: [id number] [facility] Final Report [place], [place] Patient Name: Lucero Burno ID#: [id number] : 1950 Procedure Date: September 16, 2024 Case #: [id number] Room: 6 Case Physicians: Duane Causey M.D. Start: 14:12 Tl Gamino M.D. Admission: 09/16/2024 Dr Aviva M.D. Fellow: Ghazala Phillip Referring Physician: Iliana Carpenter APRN Procedures: * Left Heart Catheterization * [...] fibrillation/atrial flutter. Prior to the initiation of this procedure, the patient was designated as ASA Class III. The [facility] clinical frailty scale is 5: Mildly Frail. Diagnostic Tests: Prior Coronary Angiography: LV ejection fraction within 6 months is 75%. Electrocardiography: EKG was assessed by ECG. Medications Prior to Procedure: Aspirin and Calcium Channel Blocking Agent. Indications for Diagnostic Cath: The priority of the diagnostic procedure was Elective. The indication for the tin can laborer visit is cardiac arrhythmia. Chest pain symptom assessment was: Asymptomatic. Technique: A 17Fr sheath was inserted in the right femoral vein utilizing the Seldinger technique. The left atrium was injected utilizing a 6Fr PIGTAIL catheter. Left atrial pressure was performed with a 6Fr ANGLED PIGTAIL catheter. Transseptal puncture was performed with an 8.5Fr [employer] NRG RF Needle. 7,000 units of heparin were administered. A total of 100cc of Omnipaque were opened, 77cc of Omnipaque were administered and 23cc of Omnipaque were wasted. Radiation: Fluoro time was 11.5 minutes, dose area product was 27.20 Gy/cm2 and air kerma was 310 mGY. See the case log for additional details. The patient received the following medications prior to and during the procedure: Unfractionated Heparin. Hemodynamics: Left Heart Pressures Resting: Syst Diast EDP a v m LA 17 17 12 Left Atrial Appendage closure (ANGUS closure): A left atrial appendage closure was performed for atrial fibrillation. The patient had a MBH8BS7-EYIr score of 4, a HAS-BLED score of 3, a prior history of bleeding and a high risk of falls. The indication for the procedure was increased thromboembolic stroke risk, history of major bleed, high fall risk and patient preference. The left atrial orifice had a maximal width of 20.0 mm determined by MONICA. The procedure was performed with general anesthesia. Transseptal puncture was performed under fluoroscopy guidance and transesophageal echo guidance using an 8.5 Fr FoodistaCross Transseptal 45 degree introducer and VersaCross pigtail RF wire needle. The left atrial occlusion procedure was performed with fluoroscopy and MONICA guidance. An angled pigtail was placed in the left atrial appendage and exchanged for a Watchman TruSeal Double Curve delivery sheath. A Watchman FLX Closure Device 27 mm (s/l/n [id number]) was prepared and deployed using standard technique. The device was repositioned. The device met the PASS/CLOSE criteria. There was no residual device margin leak. Procedure Comments: True Steer watchman delivery system used. There were no complications. The left atrial occlusion procedure was successful. Vascular Access: Vascular Access Management: A 6 Fr Perclose was deployed at the right femoral vein access site. This device was successful. Manual Compression of the right femoral vein access site was performed. Dual Antiplatelet (DAPT) Recommendations: Patient was not on a P2Y12 inhibitor prior to nor was it given in the tin can laborer. Recommended anti-platelet/anti-thrombotic regimen: Continue aspirin 81 mg daily for indefinitely. These recommendations are made at the time of the intervention. Patient and provider preferences or a changing clinical situation may require modification of this regimen. Consult [facility] Interventional Cardiology for questions. Conclusions: * Successful left atrial occlusion [...] M.D. performed the left heart catheterization, right heart catheterization, left atrial injection, transseptal puncture, venous line / sheath insert, vascular closure device and ANGUS closure. Dr. Tl Gamino M.D. performed the transesophageal echo during cath. Dr. Dr Aviva M.D. performed the intubation-non cath physician and anesthesia. uDane Causey M.D. Electronically Signed by: Duane Causey M.D. Report Finalized: 09/16/2024 18:48 EKG: Normal sinus rhythm Normal ECG When compared with ECG of 16-SEP-2024 13:08, No significant change was found Physical Exam: General: Intubated, sedation paused for exam. HEENT: Head wrapped in post op dressing, C/D/I. AUBREY drain in place w/ sanguinous output. CV: Regular rate, regular rhythm. Lungs: CTA bilaterally Abd: Soft, NT, ND. Skin: Warm and dry. No visible rashes. Neuro: Mental status: GCS 6T. Does not open eyes, does not follow commands. CN: (-) corneal reflex. Weak cough and gag. PERRL. NPI >3 bilaterally Motor: Normal bulk and tone, no rigidity noted. WD in all extremities Sensory: Grimaces to NBP in all extremities. 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 Now is s/p craniotomy and hematoma evacuation. 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 PBD 1 - q1h neuro checks, VS - HOB > 30 deg - post-op CTH - no indication for seizure prophylaxis -sedation: propofol, wean as tolerated -analgesia: fentanyl PRN # CV - >s/p watchman procedure, POD 1 >hx afib - maintain SBP < 140 -labetalol, vasotec, nicardipine PRN -continue home diltiazem 60mg q6 (takes ER 300 at home) # Pulm - >intubated for airway protection - goal O2 sats > 92% -AMV protocol -VAP ppx bundle ordered # GI - -NPO give meds -OGT in place -nutrition consult for TF recs if unable to promptly extubate - bowel reg - GI ppx: H2B # FEN/ - - NS while NPO - daily BMP, Mg, PO4 -maintain hill for I/Os # Heme - - daily CBC - hold SQH until PBD #2 - hold antithrombotics/APAs -q6 coags per NSRGY # Endo - - goal glucose 120-180 # ID - - for temp > 38.4 C --> UA, CXR, blood cx, sputum cx - tylenol PRN T/L/D: RRAL, PIVs, hill Code Status: Attempt Cardiopulmonary Resuscitation - Inpatient Dispo: NCCU ADRIANA Shay NCCU team pager #[phone] * Amari Colbert PA - 09/16/2024 4:15 PM EDTSummary: Post Procedure Admit H&P [facility] Interventional Cardiology Structural Heart Program Post Procedure H&P PCP: Leila Manjarrez Referring: Iliana Carpenter APRN Date of Admission: 09/16/2024 Admission Diagnosis: Atrial Fibrillation: S/p Watchman device implant S/p 27mm Watchman FLX pro device implant Problem List: Patient Active Problem List Diagnosis ','Presence of Watchman left atrial appendage closure device Post-operative state Chronic atrial fibrillation Right occipital hemorrhage with associated vassogenic edema, anticoagulation associated, 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 female is admitted following successful implantation of Watchman device for left atrial appendage occlusion in the setting of atrial fibrillation, elevated stroke risk, and inability to maintain therapy on long- term anticoagulation. Lucero Bruno is a 74 y.o. female referred for cardiac catheterization by her primary care cardiology provider Iliana Carpenter APRN ([facility] cards/[place] cards) for evaluation of cardiac hemodynamics, left atrial appendage anatomy, and implantation of left atrial appendage occlusion device (Watchman FLX) if indicated. The medical history is notable for atrial fibrillation which has been paroxysmal and an associated elevated risk of thromboembolic stroke with ChadsVasc score >4. She has had no prior cardioversions or antiarrhythmic therapy. 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 HAS-BLEd > 3. She continues to note a mild visual impairment. She does continue on aspirin daily, including taking this at home today already. I have reviewed the available records, interviewed and examined the patient. This patient is admitted post procedure for IV hydration, pain management, access site management in the setting of anticoagulation, telemetry monitoring, evaluation of their medical condition, and cardiac rehabilitation. PROCEDURE General Anesthesia TransEsophogeal Echo Left atrial appendage occlusion with Device Access: Right Femoral Vein, 17French, PerClose for hemostasis Implant: 27mm Watchman FLX implant Procedure(s) performed: LAAO US guided venous access US guided Transseptal puncture Left Heart Catheterization LAAO (WATCHMAN) deployment Venous Closure Base Line MONICA Demonstrated: ANGUS Anterior Chicken Wing Max Martita 23 mm Right Femoral Vein 14 FR Watchman TruSteer US guided Right Femoral Vein Access. After obtaining Baseline MONICA assessment which demonstrated the ANGUS appropriate for closure without thrombus. Under US guidance a Transseptal puncture was performed using the [employer] [facility] [place] System. A WM TruSteer sheath was tracked across the inter-atrial septum without difficulty. An angled angiographic pig tail catheter (6Fr) was then positioned in the ANGUS through which an angiogram was performed showing anatomy c/w MONICA findings (LA = 12 mmHg). A Watchman FLX-Pro 27 mm ([id number]) was prepped according to the Elevator Repairer's IFU with special attention to elimante all air The WM/Delivery system was introduced into the access sheath, positioned in the ANGUS and deployed. Initial deployment was too proximal. The device was repositioned and deployed two additional times after which demonstrated the dev ice to be be in good position A post-tug test formal MONICA evaluation showed the device to be well positioned with good compression and seal meeting PASS Criteria. The Device was then released. Repeat MONICA evaluation reconfirmed good placement. Further evaluation reconfirmed good placement meeting PASS criteria. There was NO pericardial effusion. Contrast ~40 ml ROS/PMHx/Fam Hx/Soc Hx: Reviewed, see outpatient note. Physical Exam: BP 110/76 Pulse 74 Temp 36.7 ??C (98.1 ??F) (Temporal) Resp 15 Ht 152.4 cm (5') Wt 88.5 kg (195 lb) SpO2 94% BMI 38.08 kg/m?? Gen: Well-appearing, NAD, pleasant obese female HEENT: No pallor, no jaundice CV: Sinus, RRR, no m/g/r, JVP not elevated Lungs: CTAB, no increased WOB Abd: Soft, NTND, +NABS Ext: Wwp, no c/c/e Vasc: 2+ radial and femoral pulses, access site c/d/i Labs: Lab Results Component Value Date WBC 9.46 09/16/2024 HGB 14.7 09/16/2024 HCT 45.6 09/16/2024 MCV 90.5 09/16/2024 PLATELET 311 09/16/2024 Lab Results Component Value Date CREATININE 0.68 (L) 09/16/2024 BUN 17 09/16/2024 NA 140 09/16/2024 K 4.3 09/16/2024 CL 104 09/16/2024 CO2 27 09/16/2024 No results found for: CK, CKMB, CKMBINDEX, TROPONINT Assessment/ Plan: 74 year old female with prior ICH and paroxysmal atrial fibrillation who stopped anticoagulation given prior ICH, referred for elective percutaneous left atrial appendage occlusion with device, completed today under GA with MONICA guidance. A fib, rate controlled, paroxysmal, preserved LVEF. Now, s/p LAAO with watchman FLX implant. Antithrombotic plan: Aspirin 81mg once daily Continue other home medications. - Admit for overnight monitoring - Telemetry, serial ECGs - IVF - Monitor access site - Anticipate discharge in am ADRIANA Phillip Interventional Cardiology 09/16/24 4:16 PM [facility] Pager: [phone] * Amari Colbert PA - 09/16/2024 1:18 PM EDT Patient Name: Lucero Bruno Patient Age: 74 y.o. Birthdate: 1950 Admit date: 09/16/2024 Attending Physician: Duane Lazcano MD [facility] Interventional Cardiology Structural Heart Program Adult Pre-Procedure H&P Update: Left Atrial Appendage Occlusion, percutaneous Lucero Bruno [id number] 1950 Chief Complaint: Atrial fibrillation, elevated stroke risk Inability to tolerate systemic anticoagulation HPI: Lucero Bruno is a 74 y.o. female referred for cardiac catheterization by her primary care cardiology provider Iliana Carpenter APRN ([facility] cards[facility] cards) for evaluation of cardiac hemodynamics, left atrial appendage anatomy, and implantation of left atrial appendage occlusion device (Watchman FLX) if indicated. The medical history is notable for atrial fibrillation which has been paroxysmal and an associated elevated risk of thromboembolic stroke with ChadsVasc score >4. She has had no prior cardioversions or antiarrhythmic therapy. 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 HAS-BLEd > 3. She continues to note a mild visual impairment. She does continue on aspirin daily, including taking this at home today already. Prior CT or MONICA: CT head with ICH 04/2024 TTE: Interpretation Summary -Left ventricular systolic function is hyperdynamic. The left ventricular ejection fraction is 75% by Ruth's biplane. There are no segmental wall motion abnormalities. -The right ventricle is of normal size. Right ventricular systolic function is normal. -There is aortic valve sclerosis without stenosis. -See report for additional findings. No comparison study is available. There have not been any changes in health status since last seen in clinic. No fevers, no chills, no bleeding. Please see recent outpatient clinic note for comprehensive physical and history documentation. Planned Procedure: GA MONICA Left heart cath via trans Septal puncture LAAO - watchman procedure implant Cardiac History: A fib Prior ICH Htn Other Pertinent Medical History: SOCIAL Hx: RANDY stone here with her Live in [place], [place] Outpatient Medications Marked as Taking for the 09/16/24 encounter (Hospital Encounter) Medication Sig Dispense Refill aspirin EC 81 mg EC (DR) tablet Take 1 tablet by mouth daily. acetaminophen (Tylenol) 325 mg tablet Take 2 tablets by mouth every 6 hours as needed for Pain. cholecalciferol (Vitamin D3) 1,000 unit tablet Take 1,000 Units by mouth Daily. dilTIAZem CD (Cardizem CD) 300 mg CD (ER) 24 hr casule Take 1 capsule by mouth daily. traMADoL (Ultram) 50 mg tablet Take 50 mg by mouth Every 6 hours as needed. PHYSICAL: BP 145/71 (BP Location (NBP): Right arm) Comment: left arm 156 81 Pulse 65 Temp 36.7 ??C (98.1 ??F) (Temporal) Resp 16 Ht 152.4 cm (5') Wt 88.5 kg (195 lb) SpO2 97% BMI 38.08 kg/m?? Gen: Alert, comfortable appearing, pleasant obese female, supine, in NAD HEENT: EOMI, MMM Neck: Supple, no JVD CV: RRR, no M/R/G appreciated, normal S1/S2, PMI not palpated Resp: CTAB, no W/R/R Abd: Soft, NT/ND, +BS Ext: No edema, clubbing, or cyanosis. Warm and well perfused. Neuro: CN grossly intact, moving all extremities Psych: Appropriate affect Pulses: 2+ bilateral radial pulses, right hand gen's test demonstrates adequate reperfusion via ulnar artery alone, Barbeau test to be done in procedure room, 2+ bilateral femoral pulses, no femoral bruit appreciated, 2+ bilateral DP pulses Pre-Sedation Assessment: Per anesthesia assessment Sedation Plan: GA with MONICA Labs reviewed and notable for: Lab Results Component Value Date WBC 9.46 09/16/2024 HGB 14.7 09/16/2024 HCT 45.6 09/16/2024 MCV 90.5 09/16/2024 PLATELET 311 09/16/2024 Lab Results Component Value Date CREATININE 0.68 (L) 09/16/2024 BUN 17 09/16/2024 NA 140 09/16/2024 K 4.3 09/16/2024 CL 104 09/16/2024 CO2 27 09/16/2024 Lab Results Component Value Date INR 1.0 05/08/2024 Assessment/Plan: 74 y.o. female here for cardiac catheterization for atrial fibrillation. Will proceed with evaluation of left atrial appendage anatomy and implantation of left atrial appendage occlusion device.. - proceed as planned - consent signed -no apparent contraindication to DAPT, patient denies upcoming or planned procedures/operations, and denies ongoing or recent bleeding events - FULL code -12-Lead ECG reviewed -Labs Reviewed: I have personally discussed the procedure, including benefits and risks, with the patient who agrees to proceed. The indications for the catheterization, the expected benefits, and the possible riskswere reviewed in detail with the patient. The procedural consent includes general anesthesia, transesophageal echo, trans thoracic echo, intracardiac echo, left heart catheterization via trans septal puncture and left atrial appendage occlusion with device. Potential complications include but are not limited to device embolization, vessel or chamber perforation, stroke. The potential for , heart attack, stroke, kidney failure, bleeding, allergic reaction, vascular complications and infecti on as well as other potential complications were reviewed. The possibility of stenting and other percutaneous interventions, with associated risk, was reviewed. The potential need for emergent coronary artery bypass surgery was reviewed. Additional risks include device embolization, and chamber or vessel perforation. If clot is identified in the left atrium or surrounding tissues during the procedure, the procedure may be aborted. Alternatives were discussed and the patient's questions were answered in full. Following this discussion, the patient consented to the procedure and signed a form attesting to this, which is in the chart ADRIANA Phillip Interventional Cardiology 09/16/24 1:18 PM [facility] Pager: [phone] documented in this encounter Procedure Notes * Alysa Zapata PA - 09/21/2024 2:00 PM EDT Neurosurgery Procedure Note - per physician order, drain output has diminished and is appropriate to be removed at bedside - Lucero Bruno informed drain to be removed and is amenable, procedure explained - Subgaleal drain taken off suction. -The area around the entry site was cleansed with chloraprep. - Local anesthetic was administered prior to the procedure - The tack up suture was removed. - The drain was removed; drain tip visualized and intact - The drain site was closed with two absorbable sutures . - The patient tolerated the procedure well and there were no issues. - All drain related orders have been discontinued. Please page [phone] with questions regarding this patient. ADRIANA Leonardo * Bonnie Vazquez PA - 09/21/2024 12:55 PM EDTAssociated Order(s): INTUBATION Intubation Procedure Note Reason for Intubation: Airway [...] Assessment: Preoxygenation was administered. Bag/mask ventilation was difficult Laryngoscope Blade and Size: D blade The endotracheal tube size was 7.5 mm. The tube was cuffed. Common Adjuvant Equipment: A stylet was used. An oral airway was used. Size: 4. A nasal airway was not used. Additional Adjuvant Equipment: Type scope: video [place] [...] intubation status comments: First attempt by this pattern chart writer. Encountered lots of oral secretions with edematous tissue. Pt desaturation event to SpO2 mid 60%. Aborted attempt and initiated 2 person BMV. Initially, difficult to BVMbut successful with positioning and OPA use. Due [...] 93% during final attempt. ADRIANA Ragland 09/21/2024 * Juanis Doshi MD - 09/17/2024 2:16 PM EDT Central Line Placement Procedure Note Items highlighted in red are State Reported items for central line compliance documentation. Procedure Diagnosis: Right subclavian vein catheterization Reason for insertion: new central line Patient location at time of insertion: NCCU Skin prepped with: chlorhexidine Skin prep agent completely dry at time of first puncture: yes Analgesia: The procedure was performed while the patient was receiving continuous IV sedation / analgesia. Ultrasound Guidance: Ultrasound guidance used but image not saved. Sonographic assessment revealed normal anatomy.. Kit type used: An 18 Ga. X 2.5 inch needle was placed in vein after blood return identified. Guidedby a 0.032 inch diameter guide wire, a 7 Fr., 3 lumen Catheter 16 cm in length antibiotic impregnated catheter was inserted using the Seldinger Technique. Catheter type: CVL Insertion Site: subclavian vein Insertion Side: right Number of attempts: 2 Insertion successful: Yes Catheter sutured at the skin at: 16 cm . Sterile dressing: Chlorhexidine Tegaderm Findings: Patient tolerated procedure well., Wave form was appropriate., Blood returned appropriately. Complications: No Complications. Chest X-ray ordered: yes Procedure Comments: Nil --- Risks and Benefits reviewed: yes. Informed Consent obtained: yes Time out performed and documented: yes Hand Hygiene performed: Yes Mask/eye shield: mask/eye shield used Large sterile gown: large sterile gown used Sterile gloves: sterile gloves used Cap worn: cap worn Sterile drape: large sterile drape used Tunneled/Non Tunneled: non tunneled Juanis Doshi MD 09/17/2024 Associated attestation - Serenity Espinosa MD - 09/17/2024 3:35 PM EDT I was present for williamson portions of this procedure and agree with the details as noted. There were three attempts with one arterio puncture and one venipuncture. Pressure held for ~10 minutes following arteriopuncture. The patient tolerated the procedure well. documented in this encounter Nursing Notes * Marcia Juarez RN - 09/16/2024 6:43 PM EDT No surgical or anesthesia paper consents obtained. Patient came from an off unit procedure (CT scanner/procedure) emergently after being intubated. Neurology surgical team obtained emergency telephone consent from family to perform a crani-hematoma procedure. * Shraddha Mendoza RN - 09/16/2024 5:50 PM EDT Pt began c/o headache pain at 4/10 shortly after arrival in the cru at 1530. Neuro check complete, notified evi Merino to assess pt. Orders obtained for acetaminophen. Shortly after pt c/o worsening headache pain and began vomiting. Attending MD, PA, and anesthesia MD to bedside. See emar for meds given. Order obtained for stat CT. Transferred pt with anesthesia MD to CT, upon arriving at CT ptbecame somnolent and change in pupils noted. Stroke alert called, paged Neurosurgeon. Care transferred to life safety. documented in this encounter Miscellaneous Notes * Plan of Care - Latosha Winston RN - 10/12/2024 1:49 PM EST Pt and family educated prior to DC Problem: Cognitive Impairment (Stroke, Ischemic/Transient Ischemic Attack) Goal: Optimal Cognitive Function Outcome: Ongoing (Interventions Implemented as Appropriate) Problem: Communication Impairment (Stroke, Ischemic/Transient Ischemic Attack) Goal: Improved Communication Skills Outcome: Ongoing (Interventions Implemented as Appropriate) Problem: Functional Ability Impaired (Stroke, Ischemic/Transient Ischemic Attack) Goal: Optimal Functional Ability Outcome: Ongoing (Interventions Implemented as Appropriate) Problem: Cognitive Impairment (Stroke, Ischemic/Transient Ischemic Attack) Goal: Optimal Cognitive Function Outcome: Ongoing (Interventions Implemented as Appropriate) Problem: Cerebral Tissue Perfusion (Stroke, Ischemic/Transient Ischemic Attack) Goal: Optimal Cerebral Tissue Perfusion Outcome: Ongoing (Interventions Implemented as Appropriate) Problem: Bowel Elimination Impaired (Stroke, Ischemic/Transient Ischemic Attack) Goal: Effective Bowel Elimination Outcome: Ongoing (Interventions Implemented as Appropriate) Problem: Adjustment to Illness (Stroke, Ischemic/Transient Ischemic Attack) Goal: Optimal Coping Outcome: Ongoing (Interventions Implemented as Appropriate) Problem: Urinary Elimination Impaired (Stroke, Ischemic/Transient Ischemic Attack) Goal: Effective Urinary Elimination Outcome: Ongoing (Interventions Implemented as Appropriate) * Care Management - Joann Choi - 10/12/2024 10:40 AM ESTSummary: Advanced Directive Referral Met w. Pt bedside to discuss AD. Pt has named jose Pollard as agent and s/o Chase San as alternate [phone] ( this is pts cell phone) * Care Management - Anupama Pastrana RN - 10/11/2024 4:15 PM EST OFFICE OF CARE MANAGEMENT PROGRESS NOTE LOS: Hospital Day 25 days Chart reviewed, care reviewed with primary team and at interdisciplinary rounds. 10/11/2024 patient offered and accepted SNF bed at [facility] in [place], [place]. Jose Pollard notified of same and in agreement with the plan. Medical Decision Maker: JORDAN, Surrogate *surrogate is jose Pollard Guardianship needed: 0 Surrogate Name: Don Pollard Surrogate Contact Information: cell: [phone] Financial Decision Maker: Self Functional status prior to admission: Assistive Equipment Home Environment: Others in the home: alone. Current Living Arrangements: home/apartment/condo. Accessibility Concerns: Few stairs at the entrance.. Current Functional Ability: Assistive Equipment DME used at home: cane - straight DME Needed at Discharge: *expected that the patient may need additional DME but further assessment is needed Patient is insured through: Primary Insurance: MEDICARE Payor: MEDICARE / Plan: MEDICARE PART A & B / Product Type: *No Product type* / Secondary Insurance: MEDICAID [place] Last Physical Therapy Recommendation: jail facility with to be determined (10/11/24 1001) Last Occupational Therapy Recommendation: jail facility with to be determined (10/11/24 9441) Plan for discharge is: Pending Hospital Course and PT/OT Recommendations Outpatient Agency/Support Group Needs: Clinic(s) Agency Choices: [facility] clinic Agency Referrals: Not Applicable Transportation: family or friend will provide Barriers to discharge: Global: Discharge planning Global Comment: the patient may benefit from an inpatient rehab stay prior to returning home. Psychosocial: *lengthy recovery anticipated; appreciative of support from [facility] care teams Supports: *son RANDY Ochoa, has pets at home ICU Needs: none / ready for downgrade *no longer with ICU needs Plan: Patient is medically ready per medical team. Plan going forward is: discharge to [facility] 10/12/2024. Anticipated Date of Discharge: 10/12/2024 KIKO Nguyen, RN ACM-RN [facility] manager ed * Care Management - Anupama Pastrana RN - 10/11/2024 12:50 PM EST OFFICE OF CARE MANAGEMENT PROGRESS NOTE LOS: Hospital Day 25 days Chart reviewed, care reviewed with primary team and at interdisciplinary rounds. Medical Decision Maker: JORDAN, Surrogate *surrogate is jose Pollard Guardianship needed: 0 Surrogate Name: Don Pollard Surrogate Contact Information: cell: [phone] Financial Decision Maker: Self Functional status prior to admission: Assistive Equipment Home Environment: Others in the home: alone. Current Living Arrangements: home/apartment/condo. Accessibility Concerns: Few stairs at the entrance.. Current Functional Ability: Assistive Equipment DME used at home: cane - straight DME Needed at Discharge: *expected that the patient may need additional DME but further assessment is needed Patient is insured through: Primary Insurance: MEDICARE Payor: MEDICARE / Plan: MEDICARE PART A & B / Product Type: *No Product type* / Secondary Insurance: MEDICAID [place] Last Physical Therapy Recommendation: jail facility with to be determined (10/11/24 1001) Last Occupational Therapy Recommendation: jail facility with to be determined (10/06/24 1328) Plan for discharge is: Pending Hospital Course and PT/OT Recommendations Outpatient Agency/Support Group Needs: Clinic(s) Agency Choices: [facility] clinic Agency Referrals: I have met with the patient and son Don Pollard who has requested to have referrals be expanded to: [facility] ([facility]) [address] [place] [address] [facility] ([facility]) [address] [place] [address] [facility] [address] [place] [address] Note routed to a Global Mobility Specialist who will communicate referrals to facilities and provide any required information. Transportation: family or friend will provide v medical transportation Barriers to discharge: Global: Discharge planning Global Comment: the patient may benefit from an inpatient rehab stay prior to returning home. Psychosocial: *lengthy recovery anticipated; appreciative of support from [facility] care teams Supports: *son RANDY Ochoa, has pets at home ICU Needs: none / ready for downgrade *no longer with ICU needs Plan: Patient is medically ready per medical team. Plan going forward is: expand SNF referrals Anticipated Date of Discharge: 10/15/2024 Anupama Pastrana, MSN, RN ACM-RN [facility] manager ed * Plan of Care - Latosha Winston RN - 10/11/2024 11:21 AM EST Pt is A/O x3, currently on RA however requires NC intermittently has hx of CHRISTOPHER but refuses CPAP. VSS, Pain appears controlled today reports trazadone helped her sleep last night. PT OOB to chair today with lift and PT/OT, CUTTER AND EDGE TRIMMER to see as well. Tolerating bolus TF. BM x1 so far today. Plan is Rehab admit. Problem: Adjustment to Illness (Stroke, Hemorrhagic) Goal: Optimal Coping Outcome: Ongoing (Interventions Implemented as Appropriate) Problem: Cerebral Tissue Perfusion (Stroke, Hemorrhagic) Goal: Optimal Cerebral Tissue Perfusion Outcome: Ongoing (Interventions Implemented as Appropriate) Problem: Communication Impairment (Stroke, Hemorrhagic) Goal: Effective Communication Skills Outcome: Ongoing (Interventions Implemented as Appropriate) Problem: Functional Ability Impaired (Stroke, Hemorrhagic) Goal: Optimal Functional Ability Outcome: Ongoing (Interventions Implemented as Appropriate) Problem: Pain (Stroke, Hemorrhagic) Goal: Acceptable Pain Control Outcome: Ongoing (Interventions Implemented as Appropriate) Problem: Sensorimotor Impairment (Stroke, Hemorrhagic) Goal: Improved Sensorimotor Function Outcome: Ongoing (Interventions Implemented as Appropriate) Problem: Swallowing Impairment (Stroke, Hemorrhagic) Goal: Oral Intake without Aspiration Outcome: Ongoing (Interventions Implemented as Appropriate) Problem: Urinary Elimination Impaired (Stroke, Hemorrhagic) Goal: Effective Urinary Elimination Outcome: Ongoing (Interventions Implemented as Appropriate) Problem: Pain Acute Goal: Acceptable Pain Control and Functional Ability Outcome: Ongoing (Interventions Implemented as Appropriate) Problem: Infection Goal: Absence of Infection Signs and Symptoms Outcome: Ongoing (Interventions Implemented as Appropriate) Problem: Seizure, Active Management Goal: Absence of Seizure/Seizure-Related Injury Outcome: Ongoing (Interventions Implemented as Appropriate) Problem: Cerebral Tissue Perfusion Risk (Craniotomy/Craniectomy/Cranioplasty) Goal: Effective Cerebral Tissue Perfusion Outcome: Ongoing (Interventions Implemented as Appropriate) Problem: Fluid Imbalance (Craniotomy/Craniectomy/Cranioplasty) Goal: Fluid Balance Outcome: Ongoing (Interventions Implemented as Appropriate) Problem: Infection (Craniotomy/Craniectomy/Cranioplasty) Goal: Absence of Infection Signs and Symptoms Outcome: Ongoing (Interventions Implemented as Appropriate) Problem: Pain (Craniotomy/Craniectomy/Cranioplasty) Goal: Acceptable Pain Control Outcome: Ongoing (Interventions Implemented as Appropriate) Problem: Postoperative Urinary Retention (Craniotomy/Craniectomy/Cranioplasty) Goal: Effective Urinary Elimination Outcome: Ongoing (Interventions Implemented as Appropriate) Problem: Aspiration (Enteral Nutrition) Goal: Absence of Aspiration Signs and Symptoms Outcome: Ongoing (Interventions Implemented as Appropriate) Problem: Device-Related Complication Risk (Enteral Nutrition) Goal: Safe, Effective Therapy Delivery Outcome: Ongoing (Interventions Implemented as Appropriate) Problem: Feeding Intolerance (Enteral Nutrition) Goal: Feeding Tolerance Outcome: Ongoing (Interventions Implemented as Appropriate) Problem: Mobility Impairment Goal: Optimal Mobility Outcome: Ongoing (Interventions Implemented as Appropriate) * Plan of Care - Kaelyn Acuña RN - 10/11/2024 5:49 AM EST Problem: Pain Acute Goal: Acceptable Pain Control and Functional Ability Outcome: Ongoing (Interventions Implemented as Appropriate) Problem: Infection Goal: Absence of Infection Signs and Symptoms Outcome: Ongoing (Interventions Implemented as Appropriate) Problem: Seizure, Active Management Goal: Absence of Seizure/Seizure-Related Injury Outcome: Ongoing (Interventions Implemented as Appropriate) Problem: Urinary Elimination Impaired (Stroke, Hemorrhagic) Goal: Effective Urinary Elimination Outcome: Ongoing (Interventions Implemented as Appropriate) * Plan of Care - Cameron Johnson RN - 10/09/2024 11:35 PM EST Problem: Cerebral Tissue Perfusion (Stroke, Hemorrhagic) Goal: Optimal Cerebral Tissue Perfusion Outcome: Ongoing (Interventions Implemented as Appropriate) Problem: Functional Ability Impaired (Stroke, Hemorrhagic) Goal: Optimal Functional Ability Outcome: Ongoing (Interventions Implemented as Appropriate) Problem: Communication Impairment (Stroke, Hemorrhagic) Goal: Effective Communication Skills Outcome: Ongoing (Interventions Implemented as Appropriate) Problem: Adjustment to Illness (Stroke, Hemorrhagic) Goal: Optimal Coping Outcome: Ongoing (Interventions Implemented as Appropriate) Problem: Pain (Stroke, Hemorrhagic) Goal: Acceptable Pain Control Outcome: Ongoing (Interventions Implemented as Appropriate) Problem: Infection Goal: Absence of Infection Signs and Symptoms Outcome: Ongoing (Interventions Implemented as Appropriate) Problem: Seizure, Active Management Goal: Absence of Seizure/Seizure-Related Injury Outcome: Ongoing (Interventions Implemented as Appropriate) Problem: Cerebral Tissue Perfusion Risk (Craniotomy/Craniectomy/Cranioplasty) Goal: Effective Cerebral Tissue Perfusion Outcome: Ongoing (Interventions Implemented as Appropriate) Problem: Fluid Imbalance (Craniotomy/Craniectomy/Cranioplasty) Goal: Fluid Balance Outcome: Ongoing (Interventions Implemented as Appropriate) * Plan of Care - Kaelyn Acuña RN - 10/08/2024 8:00 PM EST Problem: Pain Acute Goal: Acceptable Pain Control and Functional Ability Outcome: Ongoing (Interventions Implemented as Appropriate) Problem: Cerebral Tissue Perfusion Risk (Craniotomy/Craniectomy/Cranioplasty) Goal: Effective Cerebral Tissue Perfusion Outcome: Ongoing (Interventions Implemented as Appropriate) Problem: Fluid Imbalance (Craniotomy/Craniectomy/Cranioplasty) Goal: Fluid Balance Outcome: Ongoing (Interventions Implemented as Appropriate) Problem: Swallowing Impairment (Stroke, Hemorrhagic) Goal: Oral Intake without Aspiration Outcome: Ongoing (Interventions Implemented as Appropriate) Problem: Urinary Elimination Impaired (Stroke, Hemorrhagic) Goal: Effective Urinary Elimination Outcome: Ongoing (Interventions Implemented as Appropriate) Problem: Feeding Intolerance (Enteral Nutrition) Goal: Feeding Tolerance Outcome: Ongoing (Interventions Implemented as Appropriate) * Plan of Care - Delmar Crane RN - 10/08/2024 3:32 PM EST OUTCOME EVALUATION NOTE: OUTCOME SUMMARY: Pt neurological status unchanged with VSS and within parameters. Pt intermittently on 2L nasal cannula. Tolerating tube feed diet. No BM this shift. External catheter in place, urine output is adequate. Pt had barium swallow today- silent aspiration, still on sips and chips, no straws. PLAN MOVING FORWARD: Q4 VS Q4 NC Q2 I&O NPO bolus TF Awaiting rehab placement. INDIVIDUALIZED FALL PREVENTION INTERVENTIONS: Patient-specific fall risk factors per assessment: impaired mobility, impaired communication, left side deficits/neglect. Assistance: Mechanical Lift, Bedrest w/ Q2hr turns Supervision:Hands on Surveillance: Bed locked in low position, call ruiz within reach, purposeful hourly rounding, clutter free environment, bed/chair alarm on, family at bedside intermittently. CPG GOAL OUTCOME EVALUATION: Continue care plan as documented. Problem: Pain Acute Goal: Acceptable Pain Control and Functional Ability Outcome: Ongoing (Interventions Implemented as Appropriate) Problem: Infection Goal: Absence of Infection Signs and Symptoms Outcome: Ongoing (Interventions Implemented as Appropriate) Problem: Seizure, Active Management Goal: Absence of Seizure/Seizure-Related Injury Outcome: Ongoing (Interventions Implemented as Appropriate) Problem: Cerebral Tissue Perfusion Risk (Craniotomy/Craniectomy/Cranioplasty) Goal: Effective Cerebral Tissue Perfusion Outcome: Ongoing (Interventions Implemented as Appropriate) Problem: Fluid Imbalance (Craniotomy/Craniectomy/Cranioplasty) Goal: Fluid Balance Outcome: Ongoing (Interventions Implemented as Appropriate) Problem: Infection (Craniotomy/Craniectomy/Cranioplasty) Goal: Absence of Infection Signs and Symptoms Outcome: Ongoing (Interventions Implemented as Appropriate) Problem: Pain (Craniotomy/Craniectomy/Cranioplasty) Goal: Acceptable Pain Control Outcome: Ongoing (Interventions Implemented as Appropriate) Problem: Postoperative Urinary Retention (Craniotomy/Craniectomy/Cranioplasty) Goal: Effective Urinary Elimination Outcome: Ongoing (Interventions Implemented as Appropriate) Problem: Adjustment to Illness (Stroke, Hemorrhagic) Goal: Optimal Coping Outcome: Ongoing (Interventions Implemented as Appropriate) Problem: Cerebral Tissue Perfusion (Stroke, Hemorrhagic) Goal: Optimal Cerebral Tissue Perfusion Outcome: Ongoing (Interventions Implemented as Appropriate) Problem: Communication Impairment (Stroke, Hemorrhagic) Goal: Effective Communication Skills Outcome: Ongoing (Interventions Implemented as Appropriate) Problem: Functional Ability Impaired (Stroke, Hemorrhagic) Goal: Optimal Functional Ability Outcome: Ongoing (Interventions Implemented as Appropriate) Problem: Pain (Stroke, Hemorrhagic) Goal: Acceptable Pain Control Outcome: Ongoing (Interventions Implemented as Appropriate) Problem: Sensorimotor Impairment (Stroke, Hemorrhagic) Goal: Improved Sensorimotor Function Outcome: Ongoing (Interventions Implemented as Appropriate) Problem: Swallowing Impairment (Stroke, Hemorrhagic) Goal: Oral Intake without Aspiration Outcome: Ongoing (Interventions Implemented as Appropriate) Problem: Urinary Elimination Impaired (Stroke, Hemorrhagic) Goal: Effective Urinary Elimination Outcome: Ongoing (Interventions Implemented as Appropriate) Problem: Aspiration (Enteral Nutrition) Goal: Absence of Aspiration Signs and Symptoms Outcome: Ongoing (Interventions Implemented as Appropriate) Problem: Device-Related Complication Risk (Enteral Nutrition) Goal: Safe, Effective Therapy Delivery Outcome: Ongoing (Interventions Implemented as Appropriate) Problem: Feeding Intolerance (Enteral Nutrition) Goal: Feeding Tolerance Outcome: Ongoing (Interventions Implemented as Appropriate) * Care Management - Anupama Pastrana RN - 10/08/2024 3:22 PM EST OFFICE OF CARE MANAGEMENT PROGRESS NOTE LOS: Hospital Day 22 days Chart reviewed, care reviewed with primary team and at interdisciplinary rounds. Medical Decision Maker: JORDAN, Surrogate *surrogate is jose Pollard 10/08/2024 TF adjusted to bolus 10/07; followed by [facility] [employer] [facility] (PEG placed 10/04) Appears more interactive; participates in conversation appropriately. Family/SO remain very supportive and involved Guardianship needed: 0 Surrogate Name: Don Pollard Surrogate Contact Information: cell: [phone] Financial Decision Maker: Self Functional status prior to admission: Assistive Equipment Home Environment: Others in the home: alone. Current Living Arrangements: home/apartment/condo. Accessibility Concerns: Few stairs at the entrance.. Current Functional Ability: Assistive Equipment DME used at home: cane - straight DME Needed at Discharge: *expected that the patient may need additional DME but further assessment is needed Patient is insured through: Primary Insurance: MEDICARE Payor: MEDICARE / Plan: MEDICARE PART A & B / Product Type: *No Product type* / Secondary Insurance: MEDICAID [place] Last Physical Therapy Recommendation: jail facility with to be determined (10/06/24 1324) Last Occupational Therapy Recommendation: jail facility with to be determined (10/06/24 1328) Plan for discharge is: Pending Hospital Course and PT/OT Recommendations Outpatient Agency/Support Group Needs: Clinic(s) Agency Choices: [facility] clinic Agency Referrals: I have met with the residential sales representative, who has requested to have referrals be expanded. First choice would be [facility] in [place], [place]; bed update requested in [place]. Please refer to additional progress note 10/08/2024 for expanded referral choices. Note routed to a Global Mobility Specialist who will communicate referrals to facilities and provide any required information. Transportation: family or friend will provide Barriers to discharge: Global: Discharge planning Global Comment: the patient may benefit from an inpatient rehab stay prior to returning home. Psychosocial: *lengthy recovery anticipated; appreciative of support from [facility] care teams Supports: *son RANDY Ochoa, has pets at home ICU Needs: none / ready for downgrade *no longer with ICU needs Plan: Patient is medically ready per medical team. Plan going forward is: continue to pursue SNF bed Anticipated Date of Discharge: 10/11/2024 Anupama Pastrana, KIKO, RN OCM-RN [facility] manager ed * Consult Note - Sonia Mac APRN - 10/08/2024 10:10 AM EST Images from the original note were not included. Diabetes Management Team Inpatient Consult Date of Consultation: 10/08/2024 Consult Requested by: Neurology Stroke Reason for Consultation: 74 y.o. female with PMHx notable for Afib (taking ASA, previously on apixaban-stopped taking after IPH in April 2024), CHRISTOPHER, HLD, BMI of 36, prior IPH 04/2024 who presented to hospital 09/16/24 for placement of Watchman with cardiology. She developed headaches and nausea post op and CT scan noted large R [id number] IPH. Now s/p R craniotomy for IPH evacuation. Pt oriented, answers in one word answers, thumbs up. We are being consulted to assist with diabetes management in the setting of tube feed diet. Diabetes History: Lucero Bruno has had a diagnosis of prediabetes, she is able to communicate that she never hastaken medication for diabetes Current outpatient diabetes regimen: Diabetes Provider: PCP Medications: None Monitoring is not performed Most recent A1C: Recent Labs 09/17/24 0039 05/06/24 0548 HA1C 6.1* 6.0* suggesting an average glucose of 128 mg/dL for the past 6-8 weeks. Typical diet is: currently all tube feed, barium swallow pending Diabetes Complications Status: not reviewed today Last Kidney function: Lab Results Component Value Date CREATININE 0.39 (L) 10/08/2024 CREATININE 0.68 (L) 05/08/2024 Last lipid panel: Lipid Panel Lab Results Component Value Date CHLPL 203 09/17/2024 CHLPL 135 05/06/2024 HDL 45 09/17/2024 HDL 46 05/06/2024 TRIG 95 09/20/2024 TRIG 101 05/06/2024 LDLCHOL 69 05/06/2024 LDLDIRECT 133 09/17/2024 Current Hospital Diabetes Care: Medications: Tube Feed Associated: ICR 1:10 (0-8 units), 4 x daily, Lispro resistant sliding scale q 4 hrs Monitoring: q 4 hrs Diet: NPO, Tube Feed: REVIEW OF SYSTEMS: All 12 systems reviewed and negative except as noted per HPI. PMH Past Medical History: Diagnosis Date Irregular heart beat Obstructive sleep apnea Current Hospital Medications: free water 30 mL FEEDING TUBE Q4H [facility] Diet Tube Feed: Nutren 1.5 (standard, energy-dense) (1.5 kcal/mL) Per G Tube 4 Times Daily protein powder 2 Scoop Per G Tube TID insulin lispro 2-12 Units Subcutaneous Q4H [facility] insulin lispro 0-8 Units Subcutaneous 4 Times Daily amLODIPine 5 mg Per G Tube Daily dilTIAZem 90 mg Per G Tube Q6H [facility] multivitamin with minerals 1 tablet Per G Tube Daily pantoprazole 40 mg Intravenous Daily enoxaparin 40 mg Subcutaneous Nightly ipratropium-albuteroL 3 mL Nebulization Q4H Infusions: PRN: barium sulfate, barium sulfate, influenza vaccine (65 yrs +), acetaminophen, docusate sodium AND sennosides, polyethylene glycoL (MIRALAX) oral powder, potassium chloride ER OR potassium chloride ER, iohexoL, glucose 40% oral geL OR dextrose OR glucagon, ondansetron, labetaloL, sodium chloride, bisacodyL Allergy: Allergies Allergen Reactions Oxycodone-Acetaminophen Other (See Comments) Other reaction(s): hallucinations Alendronate Sodium Nausea Only Contact Metal Agent Social history: Social History Tobacco Use Smoking status: Former Current packs/day: 0.00 Average packs/day: 2.0 packs/day for 30.0 years (60.0 ttl pk-yrs) Types: Cigarettes Start date: 1972 Quit date: 2002 Years since quittin.8 Smokeless tobacco: Never Vaping Use Vaping status: Never Used Substance Use Topics Alcohol use: Never Drug use: Never Family history: History reviewed. No pertinent family history. Vitals BP 113/64 (BP Location (NBP): Right arm, Patient Position: Lying) Pulse 75 Temp 36.7 ??C(98 ??F) (Axillary) Resp 21 Ht 152.4 cm (5') Wt 78.8 kg (173 lb 12.8 oz) SpO2 99% Comment: treatment running BMI 33.94 kg/m?? Physical Exam: Gen: NAD, communicates with single words. Laying in bed comfortably Respiratory: breathing non-labored, self suctioning Abd: Soft, non-distended, non-tender x4 quadrants SKIN: No open areas, bruising appreciated or redness to both feet, heels padded Extremities: Distal pulses intact Labs: Lab Results Component Value Date BUN 26 (H) 10/08/2024 BUN 14 05/08/2024 CREATININE 0.39 (L) 10/08/2024 CREATININE 0.68 (L) 05/08/2024 GLUCOSE 186 10/08/2024 GLUCOSE 114 05/08/2024 ESTGFR 106 10/08/2024 ESTGFR 92 05/08/2024 Lab Results Component Value Date HA1C 6.1 (H) 09/17/2024 No results found for: MICROALBUR Lab Results Component Value Date CHLPL 203 09/17/2024 Lab Results Component Value Date HDL 45 09/17/2024 Lab Results Component Value Date LDLCHOL 69 05/06/2024 Lab Results Component Value Date TRIG 95 09/20/2024 No results found for: CHOLHDL Assessment: 74 y.o. female with PMHx notable for Afib (taking ASA, previously on apixaban- stopped taking after IPH in April 2024), CHRISTOPHER, HLD, BMI of 36, prior IPH 04/2024 who presented to hospital 09/16/24 for placement of Watchman with cardiology. She developed headaches and nausea post op and CT scan noted large R [id number] IPH. Now s/p R craniotomy for IPH evacuation. Diabetes complicated byTube feed diet. A1C updated 6.1% suggesting an average glucose of 128 for the last 6 to 8 weeks. Currently has variability of blood glucose levels while hospitalized requiring adjustment of insulin regimen and DM medications. Pt with tube feed bolus 4 x daily. Tube feed is Nutren 1.5 with 176 grams carbs per liter. Tube feed bolus of 250ml delivers 44 grams of carbohydrates. Based on 1:10 ICR, pt should receive 4 units lispro 10 minutes prior to start of tube feed bolus. Feeds scheduled for 0900, 1300, 1700, 2100. Insulin orders and correction dosing were coordinated with these times to minimize injections and fingersticks, a 2 am check added to check overnight BGs. Plan: 1. Tube Feed-associated Lispro 4 units before start of bolus feed based on 1:10 ICR 3. Correction Lispro, ISF 10 4. Diet: Nutren 1.5 (176 grams CHO/L) bolus feeds 250ml - 44 grams carbs 5. Monitorin, 1300, 1700, 2100, 0200 Discharge Considerations: Medications - Outpatient treatment regimen recommendations pending based on the hospital course. Monitoring - continue BG tid ac & hs Diet - low fat/low carb diet Exercise - weight-bearing exercise 30 min/day, as tolerated Thank you for allowing us to provide care for your patient Sonia Mac APRN Endocrinology Diabetes Management Service Pager: [phone] Weekends please page [phone] 80 minute visit was spent in counseling on diabetes and treatment plan, reviewing all glucose and insulin data as well as relevant laboratory results with the patient and in the coordination of care on the inpatient unit. * Plan of Care - Kaelyn Acuña RN - 10/07/2024 8:00 PM EST Report received. POC MAR reviewed. Patient is asleep. Easy to arouse. No signs of distress noted. VSS. Assessment completed as documented.Safety check done. Care assumed. Problem: Pain Acute Goal: Acceptable Pain Control and Functional Ability Outcome: Ongoing (Interventions Implemented as Appropriate) Problem: Seizure, Active Management Goal: Absence of Seizure/Seizure-Related Injury Outcome: Ongoing (Interventions Implemented as Appropriate) Problem: Cerebral Tissue Perfusion Risk (Craniotomy/Craniectomy/Cranioplasty) Goal: Effective Cerebral Tissue Perfusion Outcome: Ongoing (Interventions Implemented as Appropriate) Problem: Pain (Stroke, Hemorrhagic) Goal: Acceptable Pain Control Outcome: Ongoing (Interventions Implemented as Appropriate) * Plan of Care - Jaida Anthony RN - 10/07/2024 5:50 PM EST OUTCOME EVALUATION NOTE: OUTCOME SUMMARY: Pt AOx4 throughout shift. O2 dropped to mid 80s during sleep on RA, 2L NC applied. Pt c/o headache during shift unrelieved by tylenol & ibuprofen. 1 episode of emesis, CT scan completed, migrainecocktail administered. Pt switched to 250mL (45g carbs per dietary) TF bolus. All medications given. Safety maintained. Partner visited at bedside, updated by team. PLAN MOVING FORWARD: Q4 NC Q4 VS Q2 I&Os Daily weights NPO bolus TF INDIVIDUALIZED FALL PREVENTION INTERVENTIONS: Patient-specific fall risk factors per assessment: generalized weakness Assistance: Mechanical Lift w/ Q2hr turns Supervision: Hands on Surveillance: Bed locked in low position, call ruiz within reach, purposeful hourly rounding, clutter free environment, bed alarm on, family at bedside Patient-specific fall prevention interventions for sensory deficits provided: No CPG GOAL OUTCOME EVALUATION: Continue care plan as documented. * Plan of Care - Jaida Anthony RN - 10/06/2024 5:21 PM EST OUTCOME EVALUATION NOTE: OUTCOME SUMMARY: Pt AOx4. 3-4/5 strengths noted on R side, 1/5 strengths noted w/ decreased sensation on L side. Radial pulses 2+, dorsalis pedis pulses 1+. Edema (2+) noted in hands & ankles. L facial droop present. Pts voice is hoarse, clear; she prefers to nod or gesture but will answer with speech if prompted. Pt had 2 brief runs of SVT today around 1030. MD aware, 2 troponins drawn, EKG & CXR done. Pt vitals stable otherwise, on 2L NC. Hill catheter discontinued @1640, external catheter in place. Mepilex in place on heels, criticaid applied to buttocks, no mepilex per wound consult. Pt up to chair this morning. Partner visiting at bedside. Safety maintained. PLAN MOVING FORWARD: Q4 VS Q4 MC Q4 BS Daily weights NPO (give meds) TF INDIVIDUALIZED FALL PREVENTION INTERVENTIONS: Patient-specific fall risk factors per assessment: generalized weakness Assistance: Mechanical Lift, Q2hr turns Supervision: Hands on Surveillance: Bed locked in low position, call ruiz within reach, purposeful hourly rounding, clutter free environment, bed/chair alarm on, family at bedside Patient-specific fall prevention interventions for sensory deficits provided: No CPG GOAL OUTCOME EVALUATION: Continue care plan as documented. * Plan of Care - Enedina Pastrana RN - 10/06/2024 1:12 AM EST OUTCOME EVALUATION NOTE: OUTCOME SUMMARY: VSS within order parameters. Pt c/o of headache on right side and some soreness at PEG site, PRN tylenol given. Pt eyes no longer cross midline, strengths on right side were weaker today, and smile was weaker as well, see flowsheets. Team was paged and made of aware of these findings, no new orders. TF continued and pt tolerating well. Hill in place with good UOP. PLAN MOVING FORWARD: q2h VS/NC/ I&O INDIVIDUALIZED FALL PREVENTION INTERVENTIONS: Patient-specific fall risk factors per assessment: [current deficits] Impaired mobility, impaired communication, generalized weakness and left sided deficits, left side neglect. Assistance: Mechanical Lift, Bedrest w/ Q2hr turns Supervision: Hands on Surveillance: Bed locked in low position, call ruiz within reach, purposeful hourly rounding, clutter free environment, bed/chair alarm on CPG GOAL OUTCOME EVALUATION: Continue care plan as documented. Problem: Pain Acute Goal: Acceptable Pain Control and Functional Ability Outcome: Ongoing (Interventions Implemented as Appropriate) Problem: Infection Goal: Absence of Infection Signs and Symptoms Outcome: Ongoing (Interventions Implemented as Appropriate) Problem: Seizure, Active Management Goal: Absence of Seizure/Seizure-Related Injury Outcome: Ongoing (Interventions Implemented as Appropriate) Problem: Cerebral Tissue Perfusion Risk (Craniotomy/Craniectomy/Cranioplasty) Goal: Effective Cerebral Tissue Perfusion Outcome: Ongoing (Interventions Implemented as Appropriate) Problem: Fluid Imbalance (Craniotomy/Craniectomy/Cranioplasty) Goal: Fluid Balance Outcome: Ongoing (Interventions Implemented as Appropriate) Problem: Infection (Craniotomy/Craniectomy/Cranioplasty) Goal: Absence of Infection Signs and Symptoms Outcome: Ongoing (Interventions Implemented as Appropriate) Problem: Pain (Craniotomy/Craniectomy/Cranioplasty) Goal: Acceptable Pain Control Outcome: Ongoing (Interventions Implemented as Appropriate) Problem: Postoperative Urinary Retention (Craniotomy/Craniectomy/Cranioplasty) Goal: Effective Urinary Elimination Outcome: Ongoing (Interventions Implemented as Appropriate) Problem: Adjustment to Illness (Stroke, Hemorrhagic) Goal: Optimal Coping Outcome: Ongoing (Interventions Implemented as Appropriate) Problem: Cerebral Tissue Perfusion (Stroke, Hemorrhagic) Goal: Optimal Cerebral Tissue Perfusion Outcome: Ongoing (Interventions Implemented as Appropriate) Problem: Communication Impairment (Stroke, Hemorrhagic) Goal: Effective Communication Skills Outcome: Ongoing (Interventions Implemented as Appropriate) Problem: Functional Ability Impaired (Stroke, Hemorrhagic) Goal: Optimal Functional Ability Outcome: Ongoing (Interventions Implemented as Appropriate) Problem: Pain (Stroke, Hemorrhagic) Goal: Acceptable Pain Control Outcome: Ongoing (Interventions Implemented as Appropriate) Problem: Sensorimotor Impairment (Stroke, Hemorrhagic) Goal: Improved Sensorimotor Function Outcome: Ongoing (Interventions Implemented as Appropriate) Problem: Swallowing Impairment (Stroke, Hemorrhagic) Goal: Oral Intake without Aspiration Outcome: Ongoing (Interventions Implemented as Appropriate) Problem: Urinary Elimination Impaired (Stroke, Hemorrhagic) Goal: Effective Urinary Elimination Outcome: Ongoing (Interventions Implemented as Appropriate) Problem: Aspiration (Enteral Nutrition) Goal: Absence of Aspiration Signs and Symptoms Outcome: Ongoing (Interventions Implemented as Appropriate) Problem: Device-Related Complication Risk (Enteral Nutrition) Goal: Safe, Effective Therapy Delivery Outcome: Ongoing (Interventions Implemented as Appropriate) Problem: Feeding Intolerance (Enteral Nutrition) Goal: Feeding Tolerance Outcome: Ongoing (Interventions Implemented as Appropriate) * Care Management - Anupama Pastrana RN - 10/05/2024 3:00 PM EST OFFICE OF CARE MANAGEMENT PROGRESS NOTE LOS: Hospital Day 19 days Chart reviewed, care reviewed with primary team and at interdisciplinary rounds. 10/05/2024 R craniotomy for IPH evacuation 09/16/2024; (Dr. Espinal) Patient alert/oriented x 3; responding to yes/no questions. Nursing notes progress with verbal communication. Remains on supplemental O2 (2L/nc) PEG placed 10/04/2024 without apparent complication. Labs/VS monitored. SS drainage ( site) w/o abnormal labs or fevers. MRI pending--hematoma v abscess. Medical Decision Maker: Self/son assists 10/05/2024 son Don Pollard contacted with care transition update; he is in agreement with expanding referrals. Feels that his mother has lengthy recovery ahead of her; active listening/emotional support. Financial Decision Maker: Self 10/05/2024 son is able to assist Functional status prior to admission: Assistive Equipment Home Environment: Others in the home: alone. Current Living Arrangements: home/apartment/condo. Accessibility Concerns: Few stairs at the entrance.. Current Functional Ability: Assistive Equipment DME used at home: cane - straight DME Needed at Discharge: *expected that the patient may need additional DME but further assessment is needed Patient is insured through: Primary Insurance: MEDICARE Payor: MEDICARE / Plan: MEDICARE PART A & B / Product Type: *No Product type* / Secondary Insurance: MEDICAID [place] Last Physical Therapy Recommendation: jail facility with to be determined (10/04/24 1025) Last Occupational Therapy Recommendation: jail facility with to be determined (10/04/24 7031) Plan for discharge is: Pending Hospital Course and PT/OT Recommendations Outpatient Agency/Support Group Needs: Clinic(s) Agency Choices: [facility] clinic Agency Referrals: I have met with the residential sales representative, who has requested to have referrals be expanded to: [facility] [address] [place] [address] [address] [place] [address] [facility] [address] [place] [address] This note pattern chart writer spoke with [facility] admission coordinator (Akiko) who stated that there are no female SNF beds available at this time. Akiko will update the referral placed in [facility]. Jose Ochoa updated with the above; as such, agreeable to expand referrals. Note routed to a Global Mobility Specialist who will communicate referrals to facilities and provide any required information. Transportation: family or friend will provide 10/05/2024 ambulance Barriers to discharge: Global: Discharge planning Global Comment: the patient may benefit from an inpatient rehab stay prior to returning home. Plan: Patient is not medically ready related to: right craniotomy for IPH evacuation. The patient had PEG placed 10/04; nearing medical readiness for transition to rehab. Plan going forward is: expand SNF referrals Anticipated Date of Discharge: 10/08/2024 Anupama Pastrana, MSN, RN ACM-RN [facility] manager ed * Plan of Care - Anabel De La Garza RN - 10/05/2024 1:42 PM EST OUTCOME EVALUATION NOTE: OUTCOME SUMMARY: Pt VSS on RA, no complaints of pain, tolerating TF well, Flexi removed due to decreased output, Neuro exam unchanged from previous day, no new orders today. PLAN MOVING FORWARD: Q2 VS, NC & I&O PT/OT/C[employer] AND EDGE TRIMMER INDIVIDUALIZED FALL PREVENTION INTERVENTIONS: Patient-specific fall risk factors per assessment: [current deficits]: Impaired mobility, impaired communication, generalized weakness, hospital environment Assistance [level of assistance required for transfers and ambulation]: Total Supervision [direct monitoring required during toileting and ADLs]: Total Surveillance [continuous indirect monitoring]: Telemetry & SpO2 Patient-specific fall prevention interventions for sensory deficits provided, if applicable: [X] N/A CPG GOAL OUTCOME EVALUATION: Problem: Pain Acute Goal: Acceptable Pain Control and Functional Ability Outcome: Ongoing (Interventions Implemented as Appropriate) Problem: Infection Goal: Absence of Infection Signs and Symptoms Outcome: Ongoing (Interventions Implemented as Appropriate) Problem: Seizure, Active Management Goal: Absence of Seizure/Seizure-Related Injury Outcome: Ongoing (Interventions Implemented as Appropriate) Problem: Cerebral Tissue Perfusion Risk (Craniotomy/Craniectomy/Cranioplasty) Goal: Effective Cerebral Tissue Perfusion Outcome: Ongoing (Interventions Implemented as Appropriate) Problem: Fluid Imbalance (Craniotomy/Craniectomy/Cranioplasty) Goal: Fluid Balance Outcome: Ongoing (Interventions Implemented as Appropriate) Problem: Infection (Craniotomy/Craniectomy/Cranioplasty) Goal: Absence of Infection Signs and Symptoms Outcome: Ongoing (Interventions Implemented as Appropriate) Problem: Pain (Craniotomy/Craniectomy/Cranioplasty) Goal: Acceptable Pain Control Outcome: Ongoing (Interventions Implemented as Appropriate) Problem: Postoperative Urinary Retention (Craniotomy/Craniectomy/Cranioplasty) Goal: Effective Urinary Elimination Outcome: Ongoing (Interventions Implemented as Appropriate) Problem: Adjustment to Illness (Stroke, Hemorrhagic) Goal: Optimal Coping Outcome: Ongoing (Interventions Implemented as Appropriate) Problem: Cerebral Tissue Perfusion (Stroke, Hemorrhagic) Goal: Optimal Cerebral Tissue Perfusion Outcome: Ongoing (Interventions Implemented as Appropriate) Problem: Communication Impairment (Stroke, Hemorrhagic) Goal: Effective Communication Skills Outcome: Ongoing (Interventions Implemented as Appropriate) Problem: Functional Ability Impaired (Stroke, Hemorrhagic) Goal: Optimal Functional Ability Outcome: Ongoing (Interventions Implemented as Appropriate) Problem: Pain (Stroke, Hemorrhagic) Goal: Acceptable Pain Control Outcome: Ongoing (Interventions Implemented as Appropriate) Problem: Sensorimotor Impairment (Stroke, Hemorrhagic) Goal: Improved Sensorimotor Function Outcome: Ongoing (Interventions Implemented as Appropriate) Problem: Swallowing Impairment (Stroke, Hemorrhagic) Goal: Oral Intake without Aspiration Outcome: Ongoing (Interventions Implemented as Appropriate) Problem: Urinary Elimination Impaired (Stroke, Hemorrhagic) Goal: Effective Urinary Elimination Outcome: Ongoing (Interventions Implemented as Appropriate) Problem: Aspiration (Enteral Nutrition) Goal: Absence of Aspiration Signs and Symptoms Outcome: Ongoing (Interventions Implemented as Appropriate) Problem: Device-Related Complication Risk (Enteral Nutrition) Goal: Safe, Effective Therapy Delivery Outcome: Ongoing (Interventions Implemented as Appropriate) Problem: Feeding Intolerance (Enteral Nutrition) Goal: Feeding Tolerance Outcome: Ongoing (Interventions Implemented as Appropriate) * Consult Note - Elvin Plaza RN - 10/05/2024 1:10 PM EST During VAS Purposeful Rounding, an assessment of your patient's venous access was performed fby theVascular Access Service. The following tasks were performed if needed and communicated to the bedside RN Choose all that apply: [] PIV(s) checked for patency if daily need for flush needs to be performed [] CVAD was checked for patency if daily flush needs to be performed [] IV tubing clamped or capped if needed [] Visual inspection of your patient's central line dressing integrity [x] Review of indications for vascular access [] A photo was taken of your patient's central line [x] Visual inspection of your patient's IV dressing integrity [] Other While rounding an intervention was needed and communicated to the bedside RN Choose all that apply: [] Nonocclusive IV dressing addressed [] Nonocclusive CVAD dressing (please identify type of line) [] Infusion site leaking [] IV not patent and removed [] IV not indicated [] IV placed [] IV restarted [] Implanted Port, PICC or ML dressing changed if needed (either PRN or weekly) [] Other * Plan of Care - Enedina Pastrana RN - 10/05/2024 6:41 AM EST OUTCOME EVALUATION NOTE: OUTCOME SUMMARY: VSS within order parameters on 2L NC. TF continued, see MAR. Pain control with tylenol PRN for painat insertion site of PEG. Good relief with tylenol. No drainage from right head incision overnight.Brain MRI done. pt verbalizing orientation question answers consistently, following commands on RUE & RLE, Leftfacial droop with movement, PERRLA, BMS remains in place with minimal output, BL gluteal area stillblanchable redness. PLAN MOVING FORWARD: Q2 VS, NC & I&O PT/OT/CUTTER AND EDGE TRIMMER q4h FSG INDIVIDUALIZED FALL PREVENTION INTERVENTIONS: Patient-specific fall risk factors per assessment: Impaired mobility, impaired communication, generalized weakness, hospital environment Assistance: Mechanical Lift, Bedrest w/ Q2hr turns Supervision: Hands on Surveillance: Bed locked in low position, call ruiz within reach, purposeful hourly rounding, clutter free environment, bed/chair alarm on CPG GOAL OUTCOME EVALUATION: Continue care plan as documented. Problem: Pain Acute Goal: Acceptable Pain Control and Functional Ability Outcome: Ongoing (Interventions Implemented as Appropriate) Problem: Infection Goal: Absence of Infection Signs and Symptoms Outcome: Ongoing (Interventions Implemented as Appropriate) Problem: Seizure, Active Management Goal: Absence of Seizure/Seizure-Related Injury Outcome: Ongoing (Interventions Implemented as Appropriate) Problem: Cerebral Tissue Perfusion Risk (Craniotomy/Craniectomy/Cranioplasty) Goal: Effective Cerebral Tissue Perfusion Outcome: Ongoing (Interventions Implemented as Appropriate) Problem: Fluid Imbalance (Craniotomy/Craniectomy/Cranioplasty) Goal: Fluid Balance Outcome: Ongoing (Interventions Implemented as Appropriate) Problem: Infection (Craniotomy/Craniectomy/Cranioplasty) Goal: Absence of Infection Signs and Symptoms Outcome: Ongoing (Interventions Implemented as Appropriate) Problem: Pain (Craniotomy/Craniectomy/Cranioplasty) Goal: Acceptable Pain Control Outcome: Ongoing (Interventions Implemented as Appropriate) Problem: Postoperative Urinary Retention (Craniotomy/Craniectomy/Cranioplasty) Goal: Effective Urinary Elimination Outcome: Ongoing (Interventions Implemented as Appropriate) Problem: Adjustment to Illness (Stroke, Hemorrhagic) Goal: Optimal Coping Outcome: Ongoing (Interventions Implemented as Appropriate) Problem: Cerebral Tissue Perfusion (Stroke, Hemorrhagic) Goal: Optimal Cerebral Tissue Perfusion Outcome: Ongoing (Interventions Implemented as Appropriate) Problem: Communication Impairment (Stroke, Hemorrhagic) Goal: Effective Communication Skills Outcome: Ongoing (Interventions Implemented as Appropriate) Problem: Functional Ability Impaired (Stroke, Hemorrhagic) Goal: Optimal Functional Ability Outcome: Ongoing (Interventions Implemented as Appropriate) Problem: Pain (Stroke, Hemorrhagic) Goal: Acceptable Pain Control Outcome: Ongoing (Interventions Implemented as Appropriate) Problem: Sensorimotor Impairment (Stroke, Hemorrhagic) Goal: Improved Sensorimotor Function Outcome: Ongoing (Interventions Implemented as Appropriate) Problem: Swallowing Impairment (Stroke, Hemorrhagic) Goal: Oral Intake without Aspiration Outcome: Ongoing (Interventions Implemented as Appropriate) Problem: Urinary Elimination Impaired (Stroke, Hemorrhagic) Goal: Effective Urinary Elimination Outcome: Ongoing (Interventions Implemented as Appropriate) Problem: Aspiration (Enteral Nutrition) Goal: Absence of Aspiration Signs and Symptoms Outcome: Ongoing (Interventions Implemented as Appropriate) Problem: Device-Related Complication Risk (Enteral Nutrition) Goal: Safe, Effective Therapy Delivery Outcome: Ongoing (Interventions Implemented as Appropriate) Problem: Feeding Intolerance (Enteral Nutrition) Goal: Feeding Tolerance Outcome: Ongoing (Interventions Implemented as Appropriate) * Plan of Care - Anabel De La Garza RN - 10/04/2024 5:55 PM EST OUTCOME EVALUATION NOTE: OUTCOME SUMMARY: Pt to IR for PEG today, TF resumed, Tramadol x1 for pain at insertion site, Neurosurgery placed stitch on craniotomy incision due to serosanguinous drainage, CVL removed & PIV placed, DHT removed, Pt VSS on 2LNC, pt verbalizing orientation question answers consistently, following commands on RUE & RLE, Left facial droop with movement, PERRLA, BMS remains in place with minimal output, BL gluteal area still blanchable redness. PLAN MOVING FORWARD: Q2 VS, NC & I&O PT/OT/CUTTER AND EDGE TRIMMER INDIVIDUALIZED FALL PREVENTION INTERVENTIONS: Patient-specific fall risk factors per assessment: [current deficits]: Impaired mobility, impaired communication, generalized weakness, hospital environment Assistance [level of assistance required for transfers and ambulation]: Total Supervision [direct monitoring required during toileting and ADLs]: Total Surveillance [continuous indirect monitoring]: Telemetry & SpO2 Patient-specific fall prevention interventions for sensory deficits provided, if applicable: [X] N/A CPG GOAL OUTCOME EVALUATION: Problem: Pain Acute Goal: Acceptable Pain Control and Functional Ability Outcome: Ongoing (Interventions Implemented as Appropriate) Problem: Infection Goal: Absence of Infection Signs and Symptoms Outcome: Ongoing (Interventions Implemented as Appropriate) Problem: Seizure, Active Management Goal: Absence of Seizure/Seizure-Related Injury Outcome: Ongoing (Interventions Implemented as Appropriate) Problem: Cerebral Tissue Perfusion Risk (Craniotomy/Craniectomy/Cranioplasty) Goal: Effective Cerebral Tissue Perfusion Outcome: Ongoing (Interventions Implemented as Appropriate) Problem: Fluid Imbalance (Craniotomy/Craniectomy/Cranioplasty) Goal: Fluid Balance Outcome: Ongoing (Interventions Implemented as Appropriate) Problem: Infection (Craniotomy/Craniectomy/Cranioplasty) Goal: Absence of Infection Signs and Symptoms Outcome: Ongoing (Interventions Implemented as Appropriate) Problem: Pain (Craniotomy/Craniectomy/Cranioplasty) Goal: Acceptable Pain Control Outcome: Ongoing (Interventions Implemented as Appropriate) Problem: Postoperative Urinary Retention (Craniotomy/Craniectomy/Cranioplasty) Goal: Effective Urinary Elimination Outcome: Ongoing (Interventions Implemented as Appropriate) Problem: Adjustment to Illness (Stroke, Hemorrhagic) Goal: Optimal Coping Outcome: Ongoing (Interventions Implemented as Appropriate) Problem: Cerebral Tissue Perfusion (Stroke, Hemorrhagic) Goal: Optimal Cerebral Tissue Perfusion Outcome: Ongoing (Interventions Implemented as Appropriate) Problem: Communication Impairment (Stroke, Hemorrhagic) Goal: Effective Communication Skills Outcome: Ongoing (Interventions Implemented as Appropriate) Problem: Functional Ability Impaired (Stroke, Hemorrhagic) Goal: Optimal Functional Ability Outcome: Ongoing (Interventions Implemented as Appropriate) Problem: Pain (Stroke, Hemorrhagic) Goal: Acceptable Pain Control Outcome: Ongoing (Interventions Implemented as Appropriate) Problem: Sensorimotor Impairment (Stroke, Hemorrhagic) Goal: Improved Sensorimotor Function Outcome: Ongoing (Interventions Implemented as Appropriate) Problem: Swallowing Impairment (Stroke, Hemorrhagic) Goal: Oral Intake without Aspiration Outcome: Ongoing (Interventions Implemented as Appropriate) Problem: Urinary Elimination Impaired (Stroke, Hemorrhagic) Goal: Effective Urinary Elimination Outcome: Ongoing (Interventions Implemented as Appropriate) Problem: Aspiration (Enteral Nutrition) Goal: Absence of Aspiration Signs and Symptoms Outcome: Ongoing (Interventions Implemented as Appropriate) Problem: Device-Related Complication Risk (Enteral Nutrition) Goal: Safe, Effective Therapy Delivery Outcome: Ongoing (Interventions Implemented as Appropriate) Problem: Feeding Intolerance (Enteral Nutrition) Goal: Feeding Tolerance Outcome: Ongoing (Interventions Implemented as Appropriate) * Brief Op Note - Jony Sampson MD - 10/04/2024 12:54 PM EST INTERVENTIONAL RADIOLOGY BRIEF PROCEDURE NOTE Patient Name: Lucero Bruno : 1950 Case Date: 10/04/2024 Operators: Attending: Adrián All Staff: Staff Role Xenia Acuña X-Ray Technologist Brad Lubin RN Radiology Nurse Jony Sampson MD Attending Post-operative diagnosis/Indication: Need for enteral access Name of Procedure Performed: Planned procedure: G-tube placement Description of the procedure: 16 Fr gastrostomy tube placed Findings of the procedure: Intragastric location of tube EBL: <10 mL Specimens: None Complications: No immediate Plan/Disposition: - To PACU, then return to floor - May use G tube immediately FULL PROCEDURE NOTE TO FOLLOW IN IMAGE REPORT * Plan of Care - Enedina Pastrana RN - 10/04/2024 4:40 AM EST OUTCOME EVALUATION NOTE: OUTCOME SUMMARY: VSS per order parameters, RA for most of shift, occasionally on 2L NC for sleep apnea, patient intermittently talking, 1-2 words per attempt. Garbled but comprehensible. Ice chips given, NPO since midnight. Pt's right head incision started draining moderate amounts of serosanguinous fluid around 2200, Neuro Stroke and NSGY paged and aware. Plan is to stitch site per NSGY. Neuro status unchanged. PLAN MOVING FORWARD: Q2 vitals Q2 neuro's Q2 turns/wound care Q4 FSG INDIVIDUALIZED FALL PREVENTION INTERVENTIONS: Patient-specific fall risk factors per assessment: Expressive aphasia and left sided deficits. Assistance: Mechanical Lift, Bedrest w/ Q2hr turns Supervision: Hands on Surveillance: Bed locked in low position, call ruiz within reach, purposeful hourly rounding, clutter free environment, bed/chair alarm on, family at bedside CPG GOAL OUTCOME EVALUATION: Continue care plan as documented. Problem: Pain Acute Goal: Acceptable Pain Control and Functional Ability Outcome: Ongoing (Interventions Implemented as Appropriate) Problem: Infection Goal: Absence of Infection Signs and Symptoms Outcome: Ongoing (Interventions Implemented as Appropriate) Problem: Seizure, Active Management Goal: Absence of Seizure/Seizure-Related Injury Outcome: Ongoing (Interventions Implemented as Appropriate) Problem: Bleeding (Craniotomy/Craniectomy/Cranioplasty) Goal: Absence of Bleeding Outcome: Ongoing (Interventions Implemented as Appropriate) Problem: Cerebral Tissue Perfusion Risk (Craniotomy/Craniectomy/Cranioplasty) Goal: Effective Cerebral Tissue Perfusion Outcome: Ongoing (Interventions Implemented as Appropriate) Problem: Fluid Imbalance (Craniotomy/Craniectomy/Cranioplasty) Goal: Fluid Balance Outcome: Ongoing (Interventions Implemented as Appropriate) Problem: Infection (Craniotomy/Craniectomy/Cranioplasty) Goal: Absence of Infection Signs and Symptoms Outcome: Ongoing (Interventions Implemented as Appropriate) Problem: Ongoing Anesthesia Effects (Craniotomy/Craniectomy/Cranioplasty) Goal: Anesthesia/Sedation Recovery Outcome: Ongoing (Interventions Implemented as Appropriate) Problem: Pain (Craniotomy/Craniectomy/Cranioplasty) Goal: Acceptable Pain Control Outcome: Ongoing (Interventions Implemented as Appropriate) Problem: Postoperative Nausea and Vomiting (Craniotomy/Craniectomy/Cranioplasty) Goal: Nausea and Vomiting Relief Outcome: Ongoing (Interventions Implemented as Appropriate) Problem: Postoperative Urinary Retention (Craniotomy/Craniectomy/Cranioplasty) Goal: Effective Urinary Elimination Outcome: Ongoing (Interventions Implemented as Appropriate) Problem: Adjustment to Illness (Stroke, Hemorrhagic) Goal: Optimal Coping Outcome: Ongoing (Interventions Implemented as Appropriate) Problem: Cerebral Tissue Perfusion (Stroke, Hemorrhagic) Goal: Optimal Cerebral Tissue Perfusion Outcome: Ongoing (Interventions Implemented as Appropriate) Problem: Communication Impairment (Stroke, Hemorrhagic) Goal: Effective Communication Skills Outcome: Ongoing (Interventions Implemented as Appropriate) Problem: Functional Ability Impaired (Stroke, Hemorrhagic) Goal: Optimal Functional Ability Outcome: Ongoing (Interventions Implemented as Appropriate) Problem: Pain (Stroke, Hemorrhagic) Goal: Acceptable Pain Control Outcome: Ongoing (Interventions Implemented as Appropriate) Problem: Sensorimotor Impairment (Stroke, Hemorrhagic) Goal: Improved Sensorimotor Function Outcome: Ongoing (Interventions Implemented as Appropriate) Problem: Swallowing Impairment (Stroke, Hemorrhagic) Goal: Oral Intake without Aspiration Outcome: Ongoing (Interventions Implemented as Appropriate) Problem: Urinary Elimination Impaired (Stroke, Hemorrhagic) Goal: Effective Urinary Elimination Outcome: Ongoing (Interventions Implemented as Appropriate) * Plan of Care - Harriet Keith RN - 10/03/2024 3:24 PM EST VSS, RA, patient intermittently talking, 1-2 words per attempt. Garbled but comprehensible. Ice chips given, NPO at midnight. Q2 vitals Q2 neuro's Q2 turns Q4 bg Problem: Adjustment to Illness (Stroke, Hemorrhagic) Goal: Optimal Coping Outcome: Ongoing (Interventions Implemented as Appropriate) Problem: Cerebral Tissue Perfusion (Stroke, Hemorrhagic) Goal: Optimal Cerebral Tissue Perfusion Outcome: Ongoing (Interventions Implemented as Appropriate) Problem: Communication Impairment (Stroke, Hemorrhagic) Goal: Effective Communication Skills Outcome: Ongoing (Interventions Implemented as Appropriate) Problem: Functional Ability Impaired (Stroke, Hemorrhagic) Goal: Optimal Functional Ability Outcome: Ongoing (Interventions Implemented as Appropriate) * Plan of Care - Jung Hazel RN - 10/02/2024 4:07 AM EST Problem: Adjustment to Illness (Stroke, Ischemic/Transient Ischemic Attack) Goal: Optimal Coping Outcome: Ongoing (Interventions Implemented as Appropriate) Problem: Bowel Elimination Impaired (Stroke, Ischemic/Transient Ischemic Attack) Goal: Effective Bowel Elimination Outcome: Ongoing (Interventions Implemented as Appropriate) Problem: Cerebral Tissue Perfusion (Stroke, Ischemic/Transient Ischemic Attack) Goal: Optimal Cerebral Tissue Perfusion Outcome: Ongoing (Interventions Implemented as Appropriate) Problem: Communication Impairment (Stroke, Ischemic/Transient Ischemic Attack) Goal: Improved Communication Skills Outcome: Ongoing (Interventions Implemented as Appropriate) * Plan of Care - Matheus Butler RN - 10/01/2024 1:31 PM EST OUTCOME EVALUATION NOTE: OUTCOME SUMMARY: Pt neuro status unchanged. Writing and nodding appropriately. Pt NSR on tele, BP within goal. Pt required suctioning during shift. Pt is now on 3L NC. PLAN MOVING FORWARD: Q2hr VS Q2hr Neuro assessments Continue tube feed INDIVIDUALIZED FALL PREVENTION INTERVENTIONS: Patient-specific fall risk factors per assessment: L sided weakness Assistance:Mechanical Lift, Bedrest w/ Q2hr turns Supervision: Hands on Surveillance: Bed locked in low position, call ruiz within reach, purposeful hourly rounding, clutter free environment, bed/chair alarm on Patient-specific fall prevention interventions for sensory deficits provided: Yes CPG GOAL OUTCOME EVALUATION: Continue care plan as documented. Problem: Adjustment to Illness (Stroke, Ischemic/Transient Ischemic Attack) Goal: Optimal Coping Outcome: Ongoing (Interventions Implemented as Appropriate) Problem: Bowel Elimination Impaired (Stroke, Ischemic/Transient Ischemic Attack) Goal: Effective Bowel Elimination Outcome: Ongoing (Interventions Implemented as Appropriate) Problem: Cerebral Tissue Perfusion (Stroke, Ischemic/Transient Ischemic Attack) Goal: Optimal Cerebral Tissue Perfusion Outcome: Ongoing (Interventions Implemented as Appropriate) Problem: Cognitive Impairment (Stroke, Ischemic/Transient Ischemic Attack) Goal: Optimal Cognitive Function Outcome: Ongoing (Interventions Implemented as Appropriate) Problem: Communication Impairment (Stroke, Ischemic/Transient Ischemic Attack) Goal: Improved Communication Skills Outcome: Ongoing (Interventions Implemented as Appropriate) Problem: Functional Ability Impaired (Stroke, Ischemic/Transient Ischemic Attack) Goal: Optimal Functional Ability Outcome: Ongoing (Interventions Implemented as Appropriate) Problem: Respiratory Compromise (Stroke, Ischemic/Transient Ischemic Attack) Goal: Effective Oxygenation and Ventilation Outcome: Ongoing (Interventions Implemented as Appropriate) Problem: Sensorimotor Impairment (Stroke, Ischemic/Transient Ischemic Attack) Goal: Improved Sensorimotor Function Outcome: Ongoing (Interventions Implemented as Appropriate) Problem: Eating/Swallowing Impairment (Stroke, Ischemic/Transient Ischemic Attack) Goal: Oral Intake without Aspiration Outcome: Ongoing (Interventions Implemented as Appropriate) Problem: Urinary Elimination Impaired (Stroke, Ischemic/Transient Ischemic Attack) Goal: Effective Urinary Elimination Outcome: Ongoing (Interventions Implemented as Appropriate) Problem: Pain Acute Goal: Acceptable Pain Control and Functional Ability Outcome: Ongoing (Interventions Implemented as Appropriate) Problem: Bleeding (Surgery Nonspecified) Goal: Absence of Bleeding Outcome: Ongoing (Interventions Implemented as Appropriate) Problem: Bowel Motility Impaired (Surgery Nonspecified) Goal: Effective Bowel Elimination Outcome: Ongoing (Interventions Implemented as Appropriate) Problem: Infection (Surgery Nonspecified) Goal: Absence of Infection Signs and Symptoms Outcome: Ongoing (Interventions Implemented as Appropriate) Problem: Ongoing Anesthesia Effects (Surgery Nonspecified) Goal: Anesthesia/Sedation Recovery Outcome: Ongoing (Interventions Implemented as Appropriate) Problem: Pain (Surgery Nonspecified) Goal: Acceptable Pain Control Outcome: Ongoing (Interventions Implemented as Appropriate) Problem: Postoperative Nausea and Vomiting (Surgery Nonspecified) Goal: Nausea and Vomiting Relief Outcome: Ongoing (Interventions Implemented as Appropriate) Problem: Postoperative Urinary Retention (Surgery Nonspecified) Goal: Effective Urinary Elimination Outcome: Ongoing (Interventions Implemented as Appropriate) Problem: Infection Goal: Absence of Infection Signs and Symptoms Outcome: Ongoing (Interventions Implemented as Appropriate) Problem: Communication Impairment (Mechanical Ventilation, Invasive) Goal: Effective Communication Outcome: Ongoing (Interventions Implemented as Appropriate) Problem: Device-Related Complication Risk (Mechanical Ventilation, Invasive) Goal: Optimal Device Function Outcome: Ongoing (Interventions Implemented as Appropriate) Problem: Inability to Wean (Mechanical Ventilation, Invasive) Goal: Mechanical Ventilation Liberation Outcome: Ongoing (Interventions Implemented as Appropriate) Problem: Nutrition Impairment (Mechanical Ventilation, Invasive) Goal: Optimal Nutrition Delivery Outcome: Ongoing (Interventions Implemented as Appropriate) Problem: Skin and Tissue Injury (Mechanical Ventilation, Invasive) Goal: Absence of Device-Related Skin and Tissue Injury Outcome: Ongoing (Interventions Implemented as Appropriate) Problem: Ventilator-Induced Lung Injury (Mechanical Ventilation, Invasive) Goal: Absence of Ventilator-Induced Lung Injury Outcome: Ongoing (Interventions Implemented as Appropriate) Problem: Seizure, Active Management Goal: Absence of Seizure/Seizure-Related Injury Outcome: Ongoing (Interventions Implemented as Appropriate) Problem: Bleeding (Craniotomy/Craniectomy/Cranioplasty) Goal: Absence of Bleeding Outcome: Ongoing (Interventions Implemented as Appropriate) Problem: Cerebral Tissue Perfusion Risk (Craniotomy/Craniectomy/Cranioplasty) Goal: Effective Cerebral Tissue Perfusion Outcome: Ongoing (Interventions Implemented as Appropriate) Problem: Fluid Imbalance (Craniotomy/Craniectomy/Cranioplasty) Goal: Fluid Balance Outcome: Ongoing (Interventions Implemented as Appropriate) Problem: Infection (Craniotomy/Craniectomy/Cranioplasty) Goal: Absence of Infection Signs and Symptoms Outcome: Ongoing (Interventions Implemented as Appropriate) Problem: Ongoing Anesthesia Effects (Craniotomy/Craniectomy/Cranioplasty) Goal: Anesthesia/Sedation Recovery Outcome: Ongoing (Interventions Implemented as Appropriate) Problem: Pain (Craniotomy/Craniectomy/Cranioplasty) Goal: Acceptable Pain Control Outcome: Ongoing (Interventions Implemented as Appropriate) Problem: Postoperative Nausea and Vomiting (Craniotomy/Craniectomy/Cranioplasty) Goal: Nausea and Vomiting Relief Outcome: Ongoing (Interventions Implemented as Appropriate) Problem: Postoperative Urinary Retention (Craniotomy/Craniectomy/Cranioplasty) Goal: Effective Urinary Elimination Outcome: Ongoing (Interventions Implemented as Appropriate) 3:15 PM Page Confirmation To Pager number: [phone] From Submitter: Matheus Butler Urgency Level: Call Me Callback Number: [phone] The following Message was sent: [Call Me] - Callback:[phone] [address] Pupils sluggish, L is 5cm, and right is 4cm - Matheus Butler * Consult Note - Gloria Armstrong LPN - 09/30/2024 1:00 PM ESTSummary: VAS Rounding Images from the original note were not included. During VAS Purposeful Rounding, an assessment of your patient's venous access was performed fby theVascular Access Service. The following tasks were performed if needed and communicated to the bedside RN Choose all that apply: [] PIV(s) checked for patency if daily need for flush needs to be performed [] CVAD was checked for patency if daily flush needs to be performed [] IV tubing clamped or capped if needed [x] Visual inspection of your patient's central line dressing integrity [x] Review of indications for vascular access [x] A photo was taken of your patient's central line [] Visual inspection of your patient's IV dressing integrity [] Other While rounding an intervention was needed and communicated to the bedside RN Choose all that apply: [] Nonocclusive IV dressing addressed [] Nonocclusive CVAD dressing (please identify type of line) [] Infusion site leaking [] IV not patent and removed [] IV not indicated [] IV placed [] IV restarted [] Implanted Port, PICC or ML dressing changed if needed (either PRN or weekly) [x] Other Central Line dressing due date discussed with primary bedside RN. She will look into thisand change dressing if indicated. * Consult Note - Rosalinda Herrera RN - 09/30/2024 12:35 PM EST Images from the original note were not included. Certified Wound Care Nurse Note Situation: Asked to see Lucero Bruno by ORN new patient escort for skin concerns of the right butt, and also receieved a consult for maria victoria red on R buttock, moisture associated? Background: eD-H notes reviewed for history, admitting diagnosis and active problem list. Wound Assessment and Care Provided: Consult performed in conjunction with Sherrie Sanders RN CWCN. Patient seen this morning in room 348 in bed, reason for visit explained to patient, permission received to assess skin. Anatomical location: gluteal, sacrococcygeal region Dressing removed: Mepilex Border Sacrum Cleansed with: Dermal wound cleanser, gauze Wound: mirroring blanching red erythema with scabs Dressing applied: CriticAid Clear Moisture Barrier Ointment Photos taken: Assessment: The glutes are with mirroring red blanching erythema and scabs, which is inidcative of skin changesassociated with mosiutre and friction. No concern for active prressure injury at this time. CriticAid Clear Moisture Barrier Ointment will provide protection against moisture and friction. Wound Care Recommendations: Glutes, sacrococcygeal region: apply CriticAid Clear Moisture Barrier Ointment twice daily and as needed. Do not use Mepilex Border Sacrum while this ointment is in use. Follow hospital standard for pressure injury prevention and skin care. Refer to adult/pediatric pressure injury prevention job aid in the clinical policy library. Please contact Rosalinda Herrera RN on secure chat or the wound care team at [phone] or pager [phone] with skin and wound care concerns or questions. Electronically Signed By: Rosalinda Herrera RN * Plan of Care - Matheus Butler RN - 09/30/2024 11:39 AM EST OUTCOME EVALUATION NOTE: OUTCOME SUMMARY: Pt neuro status unchanged. Pt on high flow per flowsheet, Rhonchi noted. Pt responds appropriately per writing, nods, and gestures. Pt had difficulty with secretions and required suctioning. PLAN MOVING FORWARD: Q2hr VS Q2hr Neuro assessments Continue tube feed INDIVIDUALIZED FALL PREVENTION INTERVENTIONS: Patient-specific fall risk factors per assessment: L sided weakness Assistance: Mechanical Lift, Bedrest w/ Q2hr turns Supervision: Hands on Surveillance: Bed locked in low position, call ruiz within reach, purposeful hourly rounding, clutter free environment, bed/chair alarm on Patient-specific fall prevention interventions for sensory deficits provided: Yes CPG GOAL OUTCOME EVALUATION: Continue care plan as documented. Problem: Adjustment to Illness (Stroke, Ischemic/Transient Ischemic Attack) Goal: Optimal Coping Outcome: Ongoing (Interventions Implemented as Appropriate) Problem: Bowel Elimination Impaired (Stroke, Ischemic/Transient Ischemic Attack) Goal: Effective Bowel Elimination Outcome: Ongoing (Interventions Implemented as Appropriate) Problem: Cerebral Tissue Perfusion (Stroke, Ischemic/Transient Ischemic Attack) Goal: Optimal Cerebral Tissue Perfusion Outcome: Ongoing (Interventions Implemented as Appropriate) Problem: Cognitive Impairment (Stroke, Ischemic/Transient Ischemic Attack) Goal: Optimal Cognitive Function Outcome: Ongoing (Interventions Implemented as Appropriate) Problem: Communication Impairment (Stroke, Ischemic/Transient Ischemic Attack) Goal: Improved Communication Skills Outcome: Ongoing (Interventions Implemented as Appropriate) Problem: Functional Ability Impaired (Stroke, Ischemic/Transient Ischemic Attack) Goal: Optimal Functional Ability Outcome: Ongoing (Interventions Implemented as Appropriate) Problem: Respiratory Compromise (Stroke, Ischemic/Transient Ischemic Attack) Goal: Effective Oxygenation and Ventilation Outcome: Ongoing (Interventions Implemented as Appropriate) Problem: Sensorimotor Impairment (Stroke, Ischemic/Transient Ischemic Attack) Goal: Improved Sensorimotor Function Outcome: Ongoing (Interventions Implemented as Appropriate) Problem: Eating/Swallowing Impairment (Stroke, Ischemic/Transient Ischemic Attack) Goal: Oral Intake without Aspiration Outcome: Ongoing (Interventions Implemented as Appropriate) Problem: Urinary Elimination Impaired (Stroke, Ischemic/Transient Ischemic Attack) Goal: Effective Urinary Elimination Outcome: Ongoing (Interventions Implemented as Appropriate) Problem: Pain Acute Goal: Acceptable Pain Control and Functional Ability Outcome: Ongoing (Interventions Implemented as Appropriate) Problem: Bleeding (Surgery Nonspecified) Goal: Absence of Bleeding Outcome: Ongoing (Interventions Implemented as Appropriate) Problem: Bowel Motility Impaired (Surgery Nonspecified) Goal: Effective Bowel Elimination Outcome: Ongoing (Interventions Implemented as Appropriate) Problem: Infection (Surgery Nonspecified) Goal: Absence of Infection Signs and Symptoms Outcome: Ongoing (Interventions Implemented as Appropriate) Problem: Ongoing Anesthesia Effects (Surgery Nonspecified) Goal: Anesthesia/Sedation Recovery Outcome: Ongoing (Interventions Implemented as Appropriate) Problem: Pain (Surgery Nonspecified) Goal: Acceptable Pain Control Outcome: Ongoing (Interventions Implemented as Appropriate) Problem: Postoperative Nausea and Vomiting (Surgery Nonspecified) Goal: Nausea and Vomiting Relief Outcome: Ongoing (Interventions Implemented as Appropriate) Problem: Postoperative Urinary Retention (Surgery Nonspecified) Goal: Effective Urinary Elimination Outcome: Ongoing (Interventions Implemented as Appropriate) Problem: Infection Goal: Absence of Infection Signs and Symptoms Outcome: Ongoing (Interventions Implemented as Appropriate) Problem: Communication Impairment (Mechanical Ventilation, Invasive) Goal: Effective Communication Outcome: Ongoing (Interventions Implemented as Appropriate) Problem: Device-Related Complication Risk (Mechanical Ventilation, Invasive) Goal: Optimal Device Function Outcome: Ongoing (Interventions Implemented as Appropriate) Problem: Inability to Wean (Mechanical Ventilation, Invasive) Goal: Mechanical Ventilation Liberation Outcome: Ongoing (Interventions Implemented as Appropriate) Problem: Nutrition Impairment (Mechanical Ventilation, Invasive) Goal: Optimal Nutrition Delivery Outcome: Ongoing (Interventions Implemented as Appropriate) Problem: Skin and Tissue Injury (Mechanical Ventilation, Invasive) Goal: Absence of Device-Related Skin and Tissue Injury Outcome: Ongoing (Interventions Implemented as Appropriate) Problem: Ventilator-Induced Lung Injury (Mechanical Ventilation, Invasive) Goal: Absence of Ventilator-Induced Lung Injury Outcome: Ongoing (Interventions Implemented as Appropriate) Problem: Seizure, Active Management Goal: Absence of Seizure/Seizure-Related Injury Outcome: Ongoing (Interventions Implemented as Appropriate) Problem: Bleeding (Craniotomy/Craniectomy/Cranioplasty) Goal: Absence of Bleeding Outcome: Ongoing (Interventions Implemented as Appropriate) Problem: Cerebral Tissue Perfusion Risk (Craniotomy/Craniectomy/Cranioplasty) Goal: Effective Cerebral Tissue Perfusion Outcome: Ongoing (Interventions Implemented as Appropriate) Problem: Fluid Imbalance (Craniotomy/Craniectomy/Cranioplasty) Goal: Fluid Balance Outcome: Ongoing (Interventions Implemented as Appropriate) Problem: Infection (Craniotomy/Craniectomy/Cranioplasty) Goal: Absence of Infection Signs and Symptoms Outcome: Ongoing (Interventions Implemented as Appropriate) Problem: Ongoing Anesthesia Effects (Craniotomy/Craniectomy/Cranioplasty) Goal: Anesthesia/Sedation Recovery Outcome: Ongoing (Interventions Implemented as Appropriate) Problem: Pain (Craniotomy/Craniectomy/Cranioplasty) Goal: Acceptable Pain Control Outcome: Ongoing (Interventions Implemented as Appropriate) Problem: Postoperative Nausea and Vomiting (Craniotomy/Craniectomy/Cranioplasty) Goal: Nausea and Vomiting Relief Outcome: Ongoing (Interventions Implemented as Appropriate) Problem: Postoperative Urinary Retention (Craniotomy/Craniectomy/Cranioplasty) Goal: Effective Urinary Elimination Outcome: Ongoing (Interventions Implemented as Appropriate) * Plan of Care - Antonio Blevins RN - 09/30/2024 4:30 AM EST OUTCOME EVALUATION NOTE: OUTCOME SUMMARY: Neuro status unchanged. Pt changed to high flow oxygen. Unable to handle secretions, requires tracheal and oral suctioning. Sonorous breathing and rhonchi noted. Significant sediment observed in urine. Pt responds appropriately using hand gestures and writing; she is able to make her needs known. PLAN MOVING FORWARD: Monitor respirations Monitor neuro status Plan for discharge INDIVIDUALIZED FALL PREVENTION INTERVENTIONS: Patient-specific fall risk factors per assessment: [current deficits]: Hospital environment, left inattention, dysconjugate gaze, IV therapy Assistance [level of assistance required for transfers and ambulation]: Total Supervision [direct monitoring required during toileting and ADLs]: Yes Surveillance [continuous indirect monitoring]: Tele, pulse oximetry Patient-specific fall prevention interventions for sensory deficits provided, if applicable: [X] Yes CPG GOAL OUTCOME EVALUATION: Plan of care ongoing Problem: Adjustment to Illness (Stroke, Ischemic/Transient Ischemic Attack) Goal: Optimal Coping Outcome: Ongoing (Interventions Implemented as Appropriate) Problem: Bowel Elimination Impaired (Stroke, Ischemic/Transient Ischemic Attack) Goal: Effective Bowel Elimination Outcome: Ongoing (Interventions Implemented as Appropriate) Problem: Cerebral Tissue Perfusion (Stroke, Ischemic/Transient Ischemic Attack) Goal: Optimal Cerebral Tissue Perfusion Outcome: Ongoing (Interventions Implemented as Appropriate) Problem: Cognitive Impairment (Stroke, Ischemic/Transient Ischemic Attack) Goal: Optimal Cognitive Function Outcome: Ongoing (Interventions Implemented as Appropriate) Problem: Communication Impairment (Stroke, Ischemic/Transient Ischemic Attack) Goal: Improved Communication Skills Outcome: Ongoing (Interventions Implemented as Appropriate) Problem: Functional Ability Impaired (Stroke, Ischemic/Transient Ischemic Attack) Goal: Optimal Functional Ability Outcome: Ongoing (Interventions Implemented as Appropriate) Problem: Respiratory Compromise (Stroke, Ischemic/Transient Ischemic Attack) Goal: Effective Oxygenation and Ventilation Outcome: Ongoing (Interventions Implemented as Appropriate) Problem: Sensorimotor Impairment (Stroke, Ischemic/Transient Ischemic Attack) Goal: Improved Sensorimotor Function Outcome: Ongoing (Interventions Implemented as Appropriate) Problem: Eating/Swallowing Impairment (Stroke, Ischemic/Transient Ischemic Attack) Goal: Oral Intake without Aspiration Outcome: Ongoing (Interventions Implemented as Appropriate) Problem: Urinary Elimination Impaired (Stroke, Ischemic/Transient Ischemic Attack) Goal: Effective Urinary Elimination Outcome: Ongoing (Interventions Implemented as Appropriate) Problem: Pain Acute Goal: Acceptable Pain Control and Functional Ability Outcome: Ongoing (Interventions Implemented as Appropriate) Problem: Bleeding (Surgery Nonspecified) Goal: Absence of Bleeding Outcome: Ongoing (Interventions Implemented as Appropriate) Problem: Bowel Motility Impaired (Surgery Nonspecified) Goal: Effective Bowel Elimination Outcome: Ongoing (Interventions Implemented as Appropriate) Problem: Infection (Surgery Nonspecified) Goal: Absence of Infection Signs and Symptoms Outcome: Ongoing (Interventions Implemented as Appropriate) Problem: Ongoing Anesthesia Effects (Surgery Nonspecified) Goal: Anesthesia/Sedation Recovery Outcome: Ongoing (Interventions Implemented as Appropriate) Problem: Pain (Surgery Nonspecified) Goal: Acceptable Pain Control Outcome: Ongoing (Interventions Implemented as Appropriate) Problem: Postoperative Nausea and Vomiting (Surgery Nonspecified) Goal: Nausea and Vomiting Relief Outcome: Ongoing (Interventions Implemented as Appropriate) Problem: Postoperative Urinary Retention (Surgery Nonspecified) Goal: Effective Urinary Elimination Outcome: Ongoing (Interventions Implemented as Appropriate) Problem: Infection Goal: Absence of Infection Signs and Symptoms Outcome: Ongoing (Interventions Implemented as Appropriate) Problem: Communication Impairment (Mechanical Ventilation, Invasive) Goal: Effective Communication Outcome: Ongoing (Interventions Implemented as Appropriate) Problem: Device-Related Complication Risk (Mechanical Ventilation, Invasive) Goal: Optimal Device Function Outcome: Ongoing (Interventions Implemented as Appropriate) Problem: Inability to Wean (Mechanical Ventilation, Invasive) Goal: Mechanical Ventilation Liberation Outcome: Ongoing (Interventions Implemented as Appropriate) Problem: Nutrition Impairment (Mechanical Ventilation, Invasive) Goal: Optimal Nutrition Delivery Outcome: Ongoing (Interventions Implemented as Appropriate) Problem: Skin and Tissue Injury (Mechanical Ventilation, Invasive) Goal: Absence of Device-Related Skin and Tissue Injury Outcome: Ongoing (Interventions Implemented as Appropriate) Problem: Ventilator-Induced Lung Injury (Mechanical Ventilation, Invasive) Goal: Absence of Ventilator-Induced Lung Injury Outcome: Ongoing (Interventions Implemented as Appropriate) Problem: Seizure, Active Management Goal: Absence of Seizure/Seizure-Related Injury Outcome: Ongoing (Interventions Implemented as Appropriate) Problem: Bleeding (Craniotomy/Craniectomy/Cranioplasty) Goal: Absence of Bleeding Outcome: Ongoing (Interventions Implemented as Appropriate) Problem: Cerebral Tissue Perfusion Risk (Craniotomy/Craniectomy/Cranioplasty) Goal: Effective Cerebral Tissue Perfusion Outcome: Ongoing (Interventions Implemented as Appropriate) Problem: Fluid Imbalance (Craniotomy/Craniectomy/Cranioplasty) Goal: Fluid Balance Outcome: Ongoing (Interventions Implemented as Appropriate) Problem: Infection (Craniotomy/Craniectomy/Cranioplasty) Goal: Absence of Infection Signs and Symptoms Outcome: Ongoing (Interventions Implemented as Appropriate) Problem: Ongoing Anesthesia Effects (Craniotomy/Craniectomy/Cranioplasty) Goal: Anesthesia/Sedation Recovery Outcome: Ongoing (Interventions Implemented as Appropriate) Problem: Pain (Craniotomy/Craniectomy/Cranioplasty) Goal: Acceptable Pain Control Outcome: Ongoing (Interventions Implemented as Appropriate) Problem: Postoperative Nausea and Vomiting (Craniotomy/Craniectomy/Cranioplasty) Goal: Nausea and Vomiting Relief Outcome: Ongoing (Interventions Implemented as Appropriate) Problem: Postoperative Urinary Retention (Craniotomy/Craniectomy/Cranioplasty) Goal: Effective Urinary Elimination Outcome: Ongoing (Interventions Implemented as Appropriate) * Plan of Care - Antonio Blevins RN - 09/29/2024 7:35 AM EST OUTCOME EVALUATION NOTE: OUTCOME SUMMARY: Pt remains tachypneic, dysconjugate gaze w/ expressive aphasia. No change in status overnight. Rectal tube placed, Hill catheter replaced. PLAN MOVING FORWARD: Maintain oxygenation Monitor neuro status INDIVIDUALIZED FALL PREVENTION INTERVENTIONS: Patient-specific fall risk factors per assessment: [current deficits]: Weakness, hospital environment, Assistance [level of assistance required for transfers and ambulation]: Total Supervision [direct monitoring required during toileting and ADLs]: Yes Surveillance [continuous indirect monitoring]: Tele, pulse ox Patient-specific fall prevention interventions for sensory deficits provided, if applicable: [X] N/A CPG GOAL OUTCOME EVALUATION: Plan of care ongoing Problem: Adjustment to Illness (Stroke, Ischemic/Transient Ischemic Attack) Goal: Optimal Coping Outcome: Ongoing (Interventions Implemented as Appropriate) Problem: Bowel Elimination Impaired (Stroke, Ischemic/Transient Ischemic Attack) Goal: Effective Bowel Elimination Outcome: Ongoing (Interventions Implemented as Appropriate) Problem: Cerebral Tissue Perfusion (Stroke, Ischemic/Transient Ischemic Attack) Goal: Optimal Cerebral Tissue Perfusion Outcome: Ongoing (Interventions Implemented as Appropriate) Problem: Cognitive Impairment (Stroke, Ischemic/Transient Ischemic Attack) Goal: Optimal Cognitive Function Outcome: Ongoing (Interventions Implemented as Appropriate) Problem: Communication Impairment (Stroke, Ischemic/Transient Ischemic Attack) Goal: Improved Communication Skills Outcome: Ongoing (Interventions Implemented as Appropriate) Problem: Functional Ability Impaired (Stroke, Ischemic/Transient Ischemic Attack) Goal: Optimal Functional Ability Outcome: Ongoing (Interventions Implemented as Appropriate) Problem: Respiratory Compromise (Stroke, Ischemic/Transient Ischemic Attack) Goal: Effective Oxygenation and Ventilation Outcome: Ongoing (Interventions Implemented as Appropriate) Problem: Sensorimotor Impairment (Stroke, Ischemic/Transient Ischemic Attack) Goal: Improved Sensorimotor Function Outcome: Ongoing (Interventions Implemented as Appropriate) Problem: Eating/Swallowing Impairment (Stroke, Ischemic/Transient Ischemic Attack) Goal: Oral Intake without Aspiration Outcome: Ongoing (Interventions Implemented as Appropriate) Problem: Urinary Elimination Impaired (Stroke, Ischemic/Transient Ischemic Attack) Goal: Effective Urinary Elimination Outcome: Ongoing (Interventions Implemented as Appropriate) Problem: Pain Acute Goal: Acceptable Pain Control and Functional Ability Outcome: Ongoing (Interventions Implemented as Appropriate) Problem: Bleeding (Surgery Nonspecified) Goal: Absence of Bleeding Outcome: Ongoing (Interventions Implemented as Appropriate) Problem: Bowel Motility Impaired (Surgery Nonspecified) Goal: Effective Bowel Elimination Outcome: Ongoing (Interventions Implemented as Appropriate) Problem: Infection (Surgery Nonspecified) Goal: Absence of Infection Signs and Symptoms Outcome: Ongoing (Interventions Implemented as Appropriate) Problem: Ongoing Anesthesia Effects (Surgery Nonspecified) Goal: Anesthesia/Sedation Recovery Outcome: Ongoing (Interventions Implemented as Appropriate) Problem: Pain (Surgery Nonspecified) Goal: Acceptable Pain Control Outcome: Ongoing (Interventions Implemented as Appropriate) Problem: Postoperative Nausea and Vomiting (Surgery Nonspecified) Goal: Nausea and Vomiting Relief Outcome: Ongoing (Interventions Implemented as Appropriate) Problem: Postoperative Urinary Retention (Surgery Nonspecified) Goal: Effective Urinary Elimination Outcome: Ongoing (Interventions Implemented as Appropriate) Problem: Infection Goal: Absence of Infection Signs and Symptoms Outcome: Ongoing (Interventions Implemented as Appropriate) Problem: Communication Impairment (Mechanical Ventilation, Invasive) Goal: Effective Communication Outcome: Ongoing (Interventions Implemented as Appropriate) Problem: Device-Related Complication Risk (Mechanical Ventilation, Invasive) Goal: Optimal Device Function Outcome: Ongoing (Interventions Implemented as Appropriate) Problem: Inability to Wean (Mechanical Ventilation, Invasive) Goal: Mechanical Ventilation Liberation Outcome: Ongoing (Interventions Implemented as Appropriate) Problem: Nutrition Impairment (Mechanical Ventilation, Invasive) Goal: Optimal Nutrition Delivery Outcome: Ongoing (Interventions Implemented as Appropriate) Problem: Skin and Tissue Injury (Mechanical Ventilation, Invasive) Goal: Absence of Device-Related Skin and Tissue Injury Outcome: Ongoing (Interventions Implemented as Appropriate) Problem: Ventilator-Induced Lung Injury (Mechanical Ventilation, Invasive) Goal: Absence of Ventilator-Induced Lung Injury Outcome: Ongoing (Interventions Implemented as Appropriate) Problem: Seizure, Active Management Goal: Absence of Seizure/Seizure-Related Injury Outcome: Ongoing (Interventions Implemented as Appropriate) Problem: Bleeding (Craniotomy/Craniectomy/Cranioplasty) Goal: Absence of Bleeding Outcome: Ongoing (Interventions Implemented as Appropriate) Problem: Cerebral Tissue Perfusion Risk (Craniotomy/Craniectomy/Cranioplasty) Goal: Effective Cerebral Tissue Perfusion Outcome: Ongoing (Interventions Implemented as Appropriate) Problem: Fluid Imbalance (Craniotomy/Craniectomy/Cranioplasty) Goal: Fluid Balance Outcome: Ongoing (Interventions Implemented as Appropriate) Problem: Infection (Craniotomy/Craniectomy/Cranioplasty) Goal: Absence of Infection Signs and Symptoms Outcome: Ongoing (Interventions Implemented as Appropriate) Problem: Ongoing Anesthesia Effects (Craniotomy/Craniectomy/Cranioplasty) Goal: Anesthesia/Sedation Recovery Outcome: Ongoing (Interventions Implemented as Appropriate) Problem: Pain (Craniotomy/Craniectomy/Cranioplasty) Goal: Acceptable Pain Control Outcome: Ongoing (Interventions Implemented as Appropriate) Problem: Postoperative Nausea and Vomiting (Craniotomy/Craniectomy/Cranioplasty) Goal: Nausea and Vomiting Relief Outcome: Ongoing (Interventions Implemented as Appropriate) Problem: Postoperative Urinary Retention (Craniotomy/Craniectomy/Cranioplasty) Goal: Effective Urinary Elimination Outcome: Ongoing (Interventions Implemented as Appropriate) * Care Management - Anupama Pastrana RN - 09/28/2024 3:30 PM EST OFFICE OF CARE MANAGEMENT PROGRESS NOTE LOS: Hospital Day 12 days 09/28/2024 HD #12. S/P watchman procedure 1024; following procedure, she developed large R ICH requiring intubation for airway protection and emergent OR for craniotomy and hematoma evacuation. Extubated 09/26/2024 without apparent complication; requiring supplemental O2 to maintain satisfactory saturations. Working with and followed by PT/OT/C[employer]MER. Ongoing dysphagia concerning; PEG conversation planned. Labs monitored; WBCs trending down. Chart reviewed, care reviewed with primary team and at interdisciplinary rounds. Medical Decision Maker: Self Financial Decision Maker: Self Functional status prior to admission: Assistive Equipment Home Environment: Others in the home: alone. Current Living Arrangements: home/apartment/condo. Accessibility Concerns: Few stairs at the entrance.. Current Functional Ability: Assistive Equipment DME used at home: cane - straight DME Needed at Discharge: *expected that the patient may need additional DME but further assessment is needed Patient is insured through: Primary Insurance: MEDICARE Payor: MEDICARE / Plan: MEDICARE PART A & B / Product Type: *No Product type* / Secondary Insurance: MEDICAID [place] Last Physical Therapy Recommendation: jail facility with to be determined Last Occupational Therapy Recommendation: jail facility with to be determined Plan for discharge is: Pending Hospital Course and PT/OT Recommendations Outpatient Agency/Support Group Needs: Clinic(s) Agency Choices: [facility] clinic Agency Referrals: Not Applicable; SNF referral to [facility] in [place], [place]. No bed offer at this time. ADDENDUM 09/28/2024: left for Admissions/SW at [facility] requesting update. May need to expand referrals if [facility] declines. May need to expand referral base; son lives in [place], [place] but SO Chase (who has health issueshimself) lives in [place], [place] Further discussion planned. Transportation: family or friend will provide Barriers to discharge: Global: Discharge planning Global Comment: the patient may benefit from an inpatient rehab stay prior to returning home. ICU Needs: mechanically ventilated, ICU specific devices / therapies, Q1 hour interventions Plan: Patient is not medically ready related to: dysphagia with poor PO intake. Plan going forward is: PEG conversation. Anticipated Date of Discharge: 09/30/2024 Anupama Pastrana, MSN, RN ACM-RN [facility] manager ed * Plan of Care - Matheus Coates RN - 09/28/2024 3:08 PM EST OUTCOME EVALUATION NOTE: OUTCOME SUMMARY: Pt alert and oriented x4. Able to answer questions with thumps up/ down for yes no or shaking head. Pt on 3L NC when I arrived. Tolerated well, moved to 2 ~1200. Loud snoring, coarse lung sounds, team aware. NSR-ST. AUOP with Hill. No BM. Flexi remains. Boyfriend bedside in am. Pt moved to stepdown unit ~1230. PLAN MOVING FORWARD: Q2 NC Q2 VS Q2 I&O Q4 BS CPG GOAL OUTCOME EVALUATION: Problem: Adjustment to Illness (Stroke, Ischemic/Transient Ischemic Attack) Goal: Optimal Coping Outcome: Ongoing (Interventions Implemented as Appropriate) Problem: Bowel Elimination Impaired (Stroke, Ischemic/Transient Ischemic Attack) Goal: Effective Bowel Elimination Outcome: Ongoing (Interventions Implemented as Appropriate) Problem: Cerebral Tissue Perfusion (Stroke, Ischemic/Transient Ischemic Attack) Goal: Optimal Cerebral Tissue Perfusion Outcome: Ongoing (Interventions Implemented as Appropriate) Problem: Cognitive Impairment (Stroke, Ischemic/Transient Ischemic Attack) Goal: Optimal Cognitive Function Outcome: Ongoing (Interventions Implemented as Appropriate) Problem: Communication Impairment (Stroke, Ischemic/Transient Ischemic Attack) Goal: Improved Communication Skills Outcome: Ongoing (Interventions Implemented as Appropriate) Problem: Functional Ability Impaired (Stroke, Ischemic/Transient Ischemic Attack) Goal: Optimal Functional Ability Outcome: Ongoing (Interventions Implemented as Appropriate) Problem: Respiratory Compromise (Stroke, Ischemic/Transient Ischemic Attack) Goal: Effective Oxygenation and Ventilation Outcome: Ongoing (Interventions Implemented as Appropriate) Problem: Sensorimotor Impairment (Stroke, Ischemic/Transient Ischemic Attack) Goal: Improved Sensorimotor Function Outcome: Ongoing (Interventions Implemented as Appropriate) Problem: Eating/Swallowing Impairment (Stroke, Ischemic/Transient Ischemic Attack) Goal: Oral Intake without Aspiration Outcome: Ongoing (Interventions Implemented as Appropriate) Problem: Urinary Elimination Impaired (Stroke, Ischemic/Transient Ischemic Attack) Goal: Effective Urinary Elimination Outcome: Ongoing (Interventions Implemented as Appropriate) Problem: Pain Acute Goal: Acceptable Pain Control and Functional Ability Outcome: Ongoing (Interventions Implemented as Appropriate) Problem: Bleeding (Surgery Nonspecified) Goal: Absence of Bleeding Outcome: Ongoing (Interventions Implemented as Appropriate) Problem: Bowel Motility Impaired (Surgery Nonspecified) Goal: Effective Bowel Elimination Outcome: Ongoing (Interventions Implemented as Appropriate) Problem: Infection (Surgery Nonspecified) Goal: Absence of Infection Signs and Symptoms Outcome: Ongoing (Interventions Implemented as Appropriate) Problem: Ongoing Anesthesia Effects (Surgery Nonspecified) Goal: Anesthesia/Sedation Recovery Outcome: Ongoing (Interventions Implemented as Appropriate) Problem: Pain (Surgery Nonspecified) Goal: Acceptable Pain Control Outcome: Ongoing (Interventions Implemented as Appropriate) Problem: Postoperative Nausea and Vomiting (Surgery Nonspecified) Goal: Nausea and Vomiting Relief Outcome: Ongoing (Interventions Implemented as Appropriate) Problem: Postoperative Urinary Retention (Surgery Nonspecified) Goal: Effective Urinary Elimination Outcome: Ongoing (Interventions Implemented as Appropriate) Problem: Infection Goal: Absence of Infection Signs and Symptoms Outcome: Ongoing (Interventions Implemented as Appropriate) Problem: Communication Impairment (Mechanical Ventilation, Invasive) Goal: Effective Communication Outcome: Ongoing (Interventions Implemented as Appropriate) Problem: Device-Related Complication Risk (Mechanical Ventilation, Invasive) Goal: Optimal Device Function Outcome: Ongoing (Interventions Implemented as Appropriate) Problem: Inability to Wean (Mechanical Ventilation, Invasive) Goal: Mechanical Ventilation Liberation Outcome: Ongoing (Interventions Implemented as Appropriate) Problem: Nutrition Impairment (Mechanical Ventilation, Invasive) Goal: Optimal Nutrition Delivery Outcome: Ongoing (Interventions Implemented as Appropriate) Problem: Skin and Tissue Injury (Mechanical Ventilation, Invasive) Goal: Absence of Device-Related Skin and Tissue Injury Outcome: Ongoing (Interventions Implemented as Appropriate) Problem: Ventilator-Induced Lung Injury (Mechanical Ventilation, Invasive) Goal: Absence of Ventilator-Induced Lung Injury Outcome: Ongoing (Interventions Implemented as Appropriate) Problem: Seizure, Active Management Goal: Absence of Seizure/Seizure-Related Injury Outcome: Ongoing (Interventions Implemented as Appropriate) Problem: Bleeding (Craniotomy/Craniectomy/Cranioplasty) Goal: Absence of Bleeding Outcome: Ongoing (Interventions Implemented as Appropriate) Problem: Cerebral Tissue Perfusion Risk (Craniotomy/Craniectomy/Cranioplasty) Goal: Effective Cerebral Tissue Perfusion Outcome: Ongoing (Interventions Implemented as Appropriate) Problem: Fluid Imbalance (Craniotomy/Craniectomy/Cranioplasty) Goal: Fluid Balance Outcome: Ongoing (Interventions Implemented as Appropriate) Problem: Infection (Craniotomy/Craniectomy/Cranioplasty) Goal: Absence of Infection Signs and Symptoms Outcome: Ongoing (Interventions Implemented as Appropriate) Problem: Ongoing Anesthesia Effects (Craniotomy/Craniectomy/Cranioplasty) Goal: Anesthesia/Sedation Recovery Outcome: Ongoing (Interventions Implemented as Appropriate) Problem: Pain (Craniotomy/Craniectomy/Cranioplasty) Goal: Acceptable Pain Control Outcome: Ongoing (Interventions Implemented as Appropriate) Problem: Postoperative Nausea and Vomiting (Craniotomy/Craniectomy/Cranioplasty) Goal: Nausea and Vomiting Relief Outcome: Ongoing (Interventions Implemented as Appropriate) Problem: Postoperative Urinary Retention (Craniotomy/Craniectomy/Cranioplasty) Goal: Effective Urinary Elimination Outcome: Ongoing (Interventions Implemented as Appropriate) * Plan of Care - Abdulkadir Lala RN - 09/28/2024 6:42 AM EST OUTCOME EVALUATION NOTE: OUTCOME SUMMARY: PT ANOx4 (using multiple choice thumbs up/down), FC RU/RL, movement to stimuli ROSA ELENA/LL, VSS on 3L NC.PT with ronchi, coarse, productive congested cough, very thick secretions. Order added to NTS. PT complained of chest pain (see note from earlier in shift). PT also complaining of pain PRN's given (see MAR). PLAN MOVING FORWARD: Stepdown Cont aggressive pulm toileting NTS INDIVIDUALIZED FALL PREVENTION INTERVENTIONS: Patient-specific fall risk factors per assessment: [current deficits]: Hospital setting, Lines, cannot move ROSA ELENA/LL Assistance [level of assistance required for transfers and ambulation]: Dependent Supervision [direct monitoring required during toileting and ADLs]: Hill and rectal tube Surveillance [continuous indirect monitoring]: ICU Patient-specific fall prevention interventions for sensory deficits provided, if applicable: [X] Yes CPG GOAL OUTCOME EVALUATION: Problem: Bowel Elimination Impaired (Stroke, Ischemic/Transient Ischemic Attack) Goal: Effective Bowel Elimination Outcome: Ongoing (Interventions Implemented as Appropriate) Problem: Cerebral Tissue Perfusion (Stroke, Ischemic/Transient Ischemic Attack) Goal: Optimal Cerebral Tissue Perfusion Outcome: Ongoing (Interventions Implemented as Appropriate) Problem: Cognitive Impairment (Stroke, Ischemic/Transient Ischemic Attack) Goal: Optimal Cognitive Function Outcome: Ongoing (Interventions Implemented as Appropriate) Problem: Urinary Elimination Impaired (Stroke, Ischemic/Transient Ischemic Attack) Goal: Effective Urinary Elimination Outcome: Ongoing (Interventions Implemented as Appropriate) Problem: Pain Acute Goal: Acceptable Pain Control and Functional Ability Outcome: Ongoing (Interventions Implemented as Appropriate) * Plan of Care - Gen Bhatt RN - 09/27/2024 7:12 PM EST OUTCOME EVALUATION NOTE: OUTCOME SUMMARY: -A&Ox4, Follows RUE (4/5 strength) & RLE (3/5 strength), Withdrawing to pain LLE & LUE;pupils equal and briskly reactive to light; nods appropriately, L facial drooping, SANTANA sensation -rhonchi, secretion improved, nebs Q4 -Flexi w/ no output since 0800, NPO give meds, [employer] eval approved ice chips intermittently (RN did not feel appropriate to do so with pt more sleepy this afternoon) -C diff sent, negative result, pt having to stay on soap and water precautions at this time -Hill w/ low UOP until mid-day, provider aware, no interventions -PT worked with pt at bedside PLAN MOVING FORWARD: -Q2 NC, Q4 NC at night -Q1 VS -Q2 I/Os INDIVIDUALIZED FALL PREVENTION INTERVENTIONS: Patient-specific fall risk factors per assessment: [current deficits]: post stroke Assistance [level of assistance required for transfers and ambulation]: x2 assist Supervision [direct monitoring required during toileting and ADLs]: x2 assist Surveillance [continuous indirect monitoring]: ICU monitoring CARE PLAN GOAL OUTCOME EVALUATION: Problem: Adjustment to Illness (Stroke, Ischemic/Transient Ischemic Attack) Goal: Optimal Coping Outcome: Ongoing (Interventions Implemented as Appropriate) Problem: Bowel Elimination Impaired (Stroke, Ischemic/Transient Ischemic Attack) Goal: Effective Bowel Elimination Outcome: Ongoing (Interventions Implemented as Appropriate) Problem: Cerebral Tissue Perfusion (Stroke, Ischemic/Transient Ischemic Attack) Goal: Optimal Cerebral Tissue Perfusion Outcome: Ongoing (Interventions Implemented as Appropriate) Problem: Cognitive Impairment (Stroke, Ischemic/Transient Ischemic Attack) Goal: Optimal Cognitive Function Outcome: Ongoing (Interventions Implemented as Appropriate) Problem: Communication Impairment (Stroke, Ischemic/Transient Ischemic Attack) Goal: Improved Communication Skills Outcome: Ongoing (Interventions Implemented as Appropriate) Problem: Functional Ability Impaired (Stroke, Ischemic/Transient Ischemic Attack) Goal: Optimal Functional Ability Outcome: Ongoing (Interventions Implemented as Appropriate) Problem: Respiratory Compromise (Stroke, Ischemic/Transient Ischemic Attack) Goal: Effective Oxygenation and Ventilation Outcome: Ongoing (Interventions Implemented as Appropriate) Problem: Sensorimotor Impairment (Stroke, Ischemic/Transient Ischemic Attack) Goal: Improved Sensorimotor Function Outcome: Ongoing (Interventions Implemented as Appropriate) Problem: Eating/Swallowing Impairment (Stroke, Ischemic/Transient Ischemic Attack) Goal: Oral Intake without Aspiration Outcome: Ongoing (Interventions Implemented as Appropriate) Problem: Urinary Elimination Impaired (Stroke, Ischemic/Transient Ischemic Attack) Goal: Effective Urinary Elimination Outcome: Ongoing (Interventions Implemented as Appropriate) Problem: Pain Acute Goal: Acceptable Pain Control and Functional Ability Outcome: Ongoing (Interventions Implemented as Appropriate) Problem: Bleeding (Surgery Nonspecified) Goal: Absence of Bleeding Outcome: Ongoing (Interventions Implemented as Appropriate) Problem: Bowel Motility Impaired (Surgery Nonspecified) Goal: Effective Bowel Elimination Outcome: Ongoing (Interventions Implemented as Appropriate) Problem: Infection (Surgery Nonspecified) Goal: Absence of Infection Signs and Symptoms Outcome: Ongoing (Interventions Implemented as Appropriate) Problem: Ongoing Anesthesia Effects (Surgery Nonspecified) Goal: Anesthesia/Sedation Recovery Outcome: Ongoing (Interventions Implemented as Appropriate) Problem: Pain (Surgery Nonspecified) Goal: Acceptable Pain Control Outcome: Ongoing (Interventions Implemented as Appropriate) Problem: Postoperative Nausea and Vomiting (Surgery Nonspecified) Goal: Nausea and Vomiting Relief Outcome: Ongoing (Interventions Implemented as Appropriate) Problem: Postoperative Urinary Retention (Surgery Nonspecified) Goal: Effective Urinary Elimination Outcome: Ongoing (Interventions Implemented as Appropriate) Problem: Infection Goal: Absence of Infection Signs and Symptoms Outcome: Ongoing (Interventions Implemented as Appropriate) Problem: Communication Impairment (Mechanical Ventilation, Invasive) Goal: Effective Communication Outcome: Ongoing (Interventions Implemented as Appropriate) Problem: Device-Related Complication Risk (Mechanical Ventilation, Invasive) Goal: Optimal Device Function Outcome: Ongoing (Interventions Implemented as Appropriate) Problem: Inability to Wean (Mechanical Ventilation, Invasive) Goal: Mechanical Ventilation Liberation Outcome: Ongoing (Interventions Implemented as Appropriate) Problem: Nutrition Impairment (Mechanical Ventilation, Invasive) Goal: Optimal Nutrition Delivery Outcome: Ongoing (Interventions Implemented as Appropriate) Problem: Skin and Tissue Injury (Mechanical Ventilation, Invasive) Goal: Absence of Device-Related Skin and Tissue Injury Outcome: Ongoing (Interventions Implemented as Appropriate) Problem: Ventilator-Induced Lung Injury (Mechanical Ventilation, Invasive) Goal: Absence of Ventilator-Induced Lung Injury Outcome: Ongoing (Interventions Implemented as Appropriate) Problem: Seizure, Active Management Goal: Absence of Seizure/Seizure-Related Injury Outcome: Ongoing (Interventions Implemented as Appropriate) Problem: Bleeding (Craniotomy/Craniectomy/Cranioplasty) Goal: Absence of Bleeding Outcome: Ongoing (Interventions Implemented as Appropriate) Problem: Cerebral Tissue Perfusion Risk (Craniotomy/Craniectomy/Cranioplasty) Goal: Effective Cerebral Tissue Perfusion Outcome: Ongoing (Interventions Implemented as Appropriate) Problem: Fluid Imbalance (Craniotomy/Craniectomy/Cranioplasty) Goal: Fluid Balance Outcome: Ongoing (Interventions Implemented as Appropriate) Problem: Infection (Craniotomy/Craniectomy/Cranioplasty) Goal: Absence of Infection Signs and Symptoms Outcome: Ongoing (Interventions Implemented as Appropriate) Problem: Ongoing Anesthesia Effects (Craniotomy/Craniectomy/Cranioplasty) Goal: Anesthesia/Sedation Recovery Outcome: Ongoing (Interventions Implemented as Appropriate) Problem: Pain (Craniotomy/Craniectomy/Cranioplasty) Goal: Acceptable Pain Control Outcome: Ongoing (Interventions Implemented as Appropriate) Problem: Postoperative Nausea and Vomiting (Craniotomy/Craniectomy/Cranioplasty) Goal: Nausea and Vomiting Relief Outcome: Ongoing (Interventions Implemented as Appropriate) Problem: Postoperative Urinary Retention (Craniotomy/Craniectomy/Cranioplasty) Goal: Effective Urinary Elimination Outcome: Ongoing (Interventions Implemented as Appropriate) * Consult Note - Umm Goodrich MD - 09/27/2024 2:30 PM EST Neurology Consult Note Patient name:Lucero Bruno Date of :1950 Admit date: 09/16/2024 Attending: Dr. Paul CC: [facility] Date last well known:: 09/16/24 Time last well known:: 1620 Date of discovery of symptoms:: 09/16/24 Time of discovery of symptoms:: 1620 Was IV Thrombolytics given?: No Was dysphagia screen performed?: No NIH Stroke Scale NIH Stroke Scale Date 09/16/24 NIH Stroke Scale Time 1645 Level of Consciousness 0 LOC Questions 2 LOC Commands 0 Best Gaze 1 Vision 2 Facial Palsy 0 Motor Arm, Left 4 Motor Arm, Right 0 Motor Leg, Left 4 Motor Leg, Right 0 Limb Ataxia 0 Sensory 2 Best Language 3 Dysarthria 2 Extinction and Inattention: 2 NIH Total Score 22 We have been asked to see Lucero Bruno by CT HPI: Lucero Bruno is a 74 y.o. female with PMH of R occipital hemorrhage, chronic a-fib presented for watchman procedure. Post operatively at approximately 4:20 pm began complaining of severe 10/10 headache, taken to CTH were an enlarged R IPH with mass effect and midline shift was identified. Stroke alert called. At that time NIHSS 22. SBP in 130s. BG 202. She was subsequently intubated and taken to surgery for Craniotomy with evaluation by neurosurgery followed by admission to NCCU for further monitoring. Course complicated by failed extubation. She was re-extubated on 09/26 and vascular neurology re- engaged for possible downgrade. Per PACU nurse present at bedside, patient received heparin during the Watchman procedure. After finding that bleed on CT head she was given protamine for reversal. At the time of Initial assessment during stroke alert patient is laying in the CT machine. She is alert tracking and able to follow simple commands. She has left-sided weakness. Right gaze preferenceunable to cross midline to the left. Life safety as well as anesthesia prep were present in the room. Neurosurgery was contacted as well as neurocritical care. Blood pressure was stable. Patient continued to follow commands on the right. Given concern for ability to protect her airway she was intubated in the CT 2. Following my assessment, neurosurgery was discussing possible return to the OR forevacuation versus possible transfer to the neuro ICU. Interval Hx: - Patient extubated on 09/26 - She continues to have left upper extremity weakness, expressive aphasia, eyelid apraxia as well as left sided neglect vs. Sensory loss. - CTH on 09/26 without hemorrhage expansion. 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 No pertinent family history. Physical Exam: Patient Vitals for the past 8 hrs: BP Temp Temp src Pulse Resp SpO2 09/27/24 1200 132/90 37.2 ??C (99 ??F) Oral 91 27 96 % 09/27/24 1100 120/52 -- -- 75 21 94 % 09/27/24 1000 140/75 -- -- 85 26 95 % 09/27/24 0900 145/78 -- -- 90 22 92 % 09/27/24 0800 125/64 37.2 ??C (99 ??F) Oral 72 27 100 % 09/27/24 0745 -- -- -- -- 17 95 % 09/27/24 0700 151/85 -- -- 84 21 97 % NG tube in place. Stridor. Does not appear in acute distress GEN-following commands on the R upper extremity and bilateral lowers. Mute with no verbal output. 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 MOTOR- no movement in the left upper extremity SENSATION -nods yes to sensory testing on the right. No response on the left. Possible component ofleft hemineglect. CEREBELLUM -finger to nose intact on right though with difficulty. REFLEXES - bilateral dalton and babinski with diffusely brisk reflexes. Labs: I/O 24 Hours: 09/26 701 - 09/27 700 In: 2959.3 [I.V.:529.3] Out: 5410 [Urine:4385] I/O this shift: In: 330 [I.V.:60; NG/GT:160; IV Piggyback:50] Out: 130 [Urine:80; Stool:50] Recent Labs 09/27/24 0138 09/26/24 0031 09/25/24 0429 09/24/24 0500 09/23/24 0101 WBC 39.03* 30.94* 27.24* 19.25* 19.97* HGB 12.5 10.7* 10.5* 9.7* 10.0* HCT 37.4 32.2* 31.9* 30.6* 30.1* PLATELET 510* 434* 379* 342 293 NEUTROABS 33.22* 23.25* 23.24* 16.30* 16.80* Recent Labs 09/27/24 0138 09/26/24 1216 09/26/24 0635 09/26/24 0031 09/25/24 0429 09/24/24 0500 NA 139 -- 137 137 138 138 K 3.8 4.2 3.7 3.7 4.1 4.2 CL 103 -- 104 104 102 102 CO2 25 -- BUN 17 -- 23* 26* 28* 28* CREATININE 0.51* -- 0.53* 0.56* 0.49* 0.51* GLUCOSE 148 -- 153 179 185 202* Recent Labs 09/27/24 0138 09/26/24 0635 09/26/24 0031 09/25/24 0429 CALCIUM 8.5 8.1* 7.9* 8.4* MAGNESIUM 0.91 -- 0.78 0.91 PHOS 4.0 3.3 3.1 3.4 Recent Labs 09/26/24 0635 09/23/24 0756 AST 28 18 ALT 72* 56* ALKPHOS 81 80 BILITOT 0.4 0.3 BILIDIR <0.2 <0.2 Recent Labs 09/26/24 0635 CK 78 No results for input(s): PHART, AZE4BQY, PO2ART, OGZ8SOU in the last 168 hours. No results for input(s): INR in the last 72 hours. Lipid Panel Lab Results Component Value Date CHLPL 203 09/17/2024 CHLPL 135 05/06/2024 HDL 45 09/17/2024 HDL 46 05/06/2024 TRIG 95 09/20/2024 TRIG 101 05/06/2024 LDLCHOL 69 05/06/2024 LDLDIRECT 133 09/17/2024 Recent Labs 09/17/24 0039 05/06/24 0548 HA1C 6.1* 6.0* Diagnostic Tests and Imaging: Results for orders placed or performed during the hospital encounter of 09/16/24 CT Head wo Contrast (Generic) (Exam End: 09/16/2024 5:26 PM) Result Value WORKSTATION ID [id number] Impression Interval expansion of now large right-sided temporal occipital intraparenchymal hemorrhage with significant mass effect resulting in 1 cm leftward midline shift. Per chart review, this patient was seen by neurosurgery and taken emergently to the OR. I have personally reviewed the image(s) and the resident's interpretation and agree with the findings, Lana Reinoso at 09/16/2024 6:01 PM Thank you for letting us participate in the care of this patient. If you are a health care provider and have any questions regarding this report, please contact the number below. For patients who have questions please contact the health ocular care technician that requested your imaging first. Electronically signed by: Lana Reinoso [facility] ([phone]), at 09/16/2024 6:[address] Head wo Contrast (Generic) (Exam End: 09/16/2024 11:21 PM) Result Value WORKSTATION ID [id number] Impression CT head: 1. Interval craniotomy with residual or recurrent hemorrhage right temporal and parietal lobe. 2. New hemorrhage right [...] in the care of this patient. If you are a health care provider and have any questions regarding this report, please contact the number below. For patients who have questions please contact the health ocular care technician that requested your imaging first. Electronically signed by: Armando Pan MD, [facility] ([phone]), at 09/17/2024 1:[address] Venogram Brain (Exam End: 09/16/2024 11:21 PM) Result Value WORKSTATION ID [id number] Impression CT head: 1. Interval craniotomy with residual or recurrent hemorrhage right temporal and parietal lobe. 2. New hemorrhage right [...] in the care of this patient. If you are a health care provider and have any questions regarding this report, please contact the number below. For patients who have questions please contact the health ocular care technician that requested your imaging first. Electronically signed by: Armando Pan MD, [facility] ([phone]), at 09/17/2024 1:42 AM XR Chest One View (Exam End: 09/16/2024 11:00 PM) Result Value WORKSTATION ID [id number] Impression Satisfactorily positioned enteric and endotracheal tubes. Left lower lobe atelectasis versus pneumonia. Thank you for letting us participate in the care of this patient. If you are a health care provider and have any questions regarding this report, please contact the number below. For patients who have questions please contact the health ocular care technician that requested your imaging first. Electronically signed by: Pamela Beard MD, [facility] ([phone]), at 09/17/2024 12:09 AM XR Abdomen 1 view (Generic) (Exam End: 09/16/2024 11:00 PM) Result Value WORKSTATION ID [id number] Impression Satisfactorily positioned enteric and endotracheal tubes. Left lower lobe atelectasis versus pneumonia. Thank you for letting us participate in the care of this patient. If you are a health care provider and have any questions regarding this report, please contact the number below. For patients who have questions please contact the health ocular care technician that requested your imaging first. Electronically signed by: Pamela Beard MD, [facility] ([phone]), at 09/17/2024 12:[address] Head wo Contrast (Generic) (Exam End: 09/17/2024 4:51 AM) Result Value WORKSTATION ID [id number] Impression Increased size and density of dominant right parietal hematoma, and of hemorrhage extending medially into the basal ganglia. Foci of thalamocapsular hemorrhage on the right are stable. No evidence of progressive intraventricular hemorrhage or ventricular dilation. No definitive increase in leftward midline shift or herniation. Thank you for letting us participate in the care of this patient. If you are a health care provider and have any questions regarding this report, please contact the number below. For patients who have questions please contact the health ocular care technician that requested your imaging first. Electronically signed by: Elvin Bolden DO, [facility] ([phone]), at 09/17/2024 8:38 AM XR Chest One View (Exam End: 09/17/2024 2:13 PM) Result Value WORKSTATION ID [id number] Impression 1. No focal opacity in lung 2. Pulmonary edema, progressed since last examination. 3. Tip of ET tube is 23 mm superior cuff to jonathan. Consider adjustment. 4. Sidehole and tip of NG tube is below the diaphragm. Thank you for letting us participate in the care of this patient. If you are a health care provider and have any questions regarding this report, please contact the number below. For patients who have questions please contact the health ocular care technician that requested your imaging first. Electronically signed by: Zoey Zabala MD, [facility] ([phone]), at 09/17/2024 2:43 PM XR Chest One View (Exam End: 09/18/2024 8:43 AM) Result Value WORKSTATION ID [id number] Impression Tubes and lines as described. Blunting of the left costophrenic angle suggests tiny layering left effusion with associated left basilar consolidation/atelectasis Thank you for letting us participate in the care of this patient. If you are a health care provider and have any questions regarding this report, please contact the number below. For patients who have questions please contact the health ocular care technician that requested your imaging first. Abdomen 1 view (Generic) (Exam End: 09/18/2024 12:31 PM) Result Value WORKSTATION ID [id number] Impression Dobbhoff tube tip along the greater curve of the stomach. Thank you for letting us participate in the care of this patient. If you are a health care provider and have any questions regarding this report, please contact the number below. For patients who have questions please contact the health ocular care technician that requested your imaging first. Brain wwo Contrast (Generic) (Exam End: 09/19/2024 5:43 PM) Result Value WORKSTATION ID [id number] Impression Unchanged size of large right cerebral hemisphere ICH status post partial evacuation. Numerous small foci of decreased acute infarction both along and separate from the site of hemorrhage. These foci are present in both cerebral hemispheres and have a pattern most consistent with embolic infarction. No evidence of [employer]BI[employer] DES[employer] malignancy Thank you for letting us participate in the care of this patient. If you are a health care provider and have any questions regarding this report, please contact the number below. For patients who have questions please contact the health ocular care technician that requested your imaging first. Electronically signed by: Riso Swartz MD, [facility] ([phone]), at 09/20/2024 8:[address] Head wo Contrast (Generic) (Exam End: 09/21/2024 3:50 AM) Result Value WORKSTATION ID [id number] Impression Stable hemorrhage right temporal, parietal, right posterior limb internal capsule and right thalamus. Mild progression of vasogenic edema adjacent to hemorrhage. Similar pattern and extent of local and generalized mass effect with stable subfalcine herniation and uncal herniation. Thank you for letting us participate in the care of this patient. If you are a health care provider and have any questions regarding this report, please contact the number below. For patients who have questions please contact the health ocular care technician that requested your imaging first. Electronically signed by: Armando Pan MD, [facility] ([phone]), at 09/21/2024 4:55 AM XR Abdomen 1 view (Generic) (Exam End: 09/21/2024 2:01 PM) Result Value WORKSTATION ID [id number] Impression Dobbhoff tube and enteric tube sidehole and tip is projecting over the expected location of the stomach. I have personally reviewed the image(s) and the resident's interpretation and agree with the findings, Shraddha Cox MD at 09/21/2024 3:40 PM Thank you for letting us participate in the care of this patient. If you are a health care provider and have any questions regarding this report, please contact the number below. For patients who have questions please contact the health ocular care technician that requested your imaging first. Electronically signed by: Shraddha Cox MD, [facility] ([phone]), at 09/21/2024 3:40 PM XR Chest One View (Exam End: 09/21/2024 2:01 PM) Result Value WORKSTATION ID [id number] Impression ET tube with tip projecting approximately 1.4 cm above the jonathan. Recommend retracting approximately 2 cm and follow-up imaging. New left basilar atelectasis and/or small pleural effusion. Aspiration or pneumonia could also this appearance. I Sacha Shipley MD discussed the results (Impression #1) with Bonnielizzette Vazquez on 09/21/2024 4:42 PM and verified that the results were understood. I have personally reviewed the image(s) and the resident's interpretation and agree with the findings, Octavio Scott MD at 09/21/2024 5:09 PM Thank you for letting us participate in the care of this patient. If you are a health care provider and have any questions regarding this report, please contact the number below. For patients who have questions please contact the health ocular care technician that requested your imaging first. Electronically signed by: Octavio Scott MD, [facility] ([phone]), at 09/21/2024 5:[address] Head wo Contrast (Generic) (Exam End: 09/22/2024 4:02 AM) Result Value WORKSTATION ID [id number] Impression Stable head CT status post removal of subcutaneous drain. No new or enlarging hemorrhage. Stable pattern of mass effect Thank you for letting us participate in the care of this patient. If you are a health care provider and have any questions regarding this report, please contact the number below. For patients who have questions please contact the health ocular care technician that requested your imaging first. Electronically signed by: Armando Pan MD, [facility] ([phone]), at 09/22/2024 4:[address] Angiogram Chest for Pulmonary Embolus w Contrast (Exam End: 09/26/2024 1:37 PM) Result Value WORKSTATION ID [id number] Impression 1. No pulmonary embolism. 2. Pulmonary edema. 3. Bibasilar atelectasis. Superimposed patchy airspace opacity in the left lower lobe may represent atelectasis versus pneumonia. 4. Mild emphysema. 5. Mild cardiomegaly. Left atrial appendage occlusion device in situ. Mild multifocal coronary atherosclerosis. Correlation with echocardiography may be of benefit. 6. Unexpected Findin mm indeterminant left adrenal nodule. Per ACR white paper guidelines, follow-up CT of the Abdomen (Adrenal protocol - without and with intravenous contrast) is recommended in one year. 7. Mild sigmoid diverticulosis coli without secondary signs of acute diverticulitis. 8. Interval development of anasarca, which may be related to hypervolemia, hypoproteinemia, or combination thereof. 9. Endotracheal catheter in situ with tip 4 mm above the jonathan. Recommend retraction. 10. Enteric catheter in situ with tip terminating in the gastric pylorus. 11. Hill catheter in situ. Persistent distention of the urinary bladder. Correlation with catheter functionality is recommended. 12. Rectal catheter in situ. Thank you for letting us participate in the care of this patient. If you are a health care provider and have any questions regarding this report, please contact the number below. For patients who have questions please contact the health ocular care technician that requested your imaging first. Electronically signed by: Marvin Decker DO, [facility] ([phone]), at 09/26/2024 1:[address] Head wo Contrast (Generic) (Exam End: 09/26/2024 1:37 PM) Result Value WORKSTATION ID [id number] Impression 1. Stable right-sided parenchymal and subdural hemorrhages, associated mass effect and midline shift. 2. Stable left intraventricular hemorrhage. 3. No new or enlarging hemorrhages or extra-axial collections. Thank you for letting us participate in the care of this patient. If you are a health care provider and have any questions regarding this report, please contact the number below. For patients who have questions please contact the health ocular care technician that requested your imaging first. Electronically signed by: Smiley Cordova MD, [facility] ([phone]), at 09/26/2024 2:[address] Abdomen & Pelvis w Contrast (Exam End: 09/26/2024 1:37 PM) Result Value WORKSTATION ID [id number] Impression 1. No pulmonary embolism. 2. Pulmonary edema. 3. Bibasilar atelectasis. Superimposed patchy airspace opacity in the left lower lobe may represent atelectasis versus pneumonia. 4. Mild emphysema. 5. Mild cardiomegaly. Left atrial appendage occlusion device in situ. Mild multifocal coronary atherosclerosis. Correlation with echocardiography may be of benefit. 6. Unexpected Findin mm indeterminant left adrenal nodule. Per ACR white paper guidelines, follow-up CT of the Abdomen (Adrenal protocol - without and with intravenous contrast) is recommended in one year. 7. Mild sigmoid diverticulosis coli without secondary signs of acute diverticulitis. 8. Interval development of anasarca, which may be related to hypervolemia, hypoproteinemia, or combination thereof. 9. Endotracheal catheter in situ with tip 4 mm above the jonathan. Recommend retraction. 10. Enteric catheter in situ with tip terminating in the gastric pylorus. 11. Hill catheter in situ. Persistent distention of the urinary bladder. Correlation with catheter functionality is recommended. 12. Rectal catheter in situ. Thank you for letting us participate in the care of this patient. If you are a health care provider and have any questions regarding this report, please contact the number below. For patients who have questions please contact the health ocular care technician that requested your imaging first. Electronically signed by: Marvin Decker DO, [facility] ([phone]), at 09/26/2024 1:54 PM Assessment and Plan: Lucero Bruno is a 74 y.o. female w/ PMH of R occipital hemorrhage, chronic a-fib presented forwatchman procedure. Post operatively at approximately 4:20 pm began complaining of severe 10/10 headache, taken to [facility] were an enlarged R IPH with mass effect and midline shift was identified. Strokealert called. At the time of my assessment patient is alert, following commands, moving her right si de and able to sustain antigravity. Unable to move left side. Pinpoint un- reactive L pupil and blown pupil on the right. NIHSS 22. SBP in 130s. BG 202. 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 She does however have a history of atrial fibrillation and was here for watchman procedure. Heparin was given during the procedure which isthe likely cause of her hemorrhage. Given the severity of the bleed as well as significant mass effect and midline shift on CTH, neurosurgery was engaged, and given the size and extent of bleed she was taken for evaluation with craniotomy and admitted to NCCU for monitoring. NCCU course was complicated by failed extubation. She was re- extubated on 09/26 and has remained clinically stable. Vascular neurology re- engaged for possible downgrade. Given her ongoing increasing white blood cell count, will defer downgrade at this time nika discussing with hospital medicine and infectious disease. If she remain stable from a respiratory standpoint, can downgrade to vascular neurology at later time. # R IPH in the setting of heparin during Watchman procedure. # CAA # s/p Craniotomy for evaluation - Management of IPH per NCCU and neurosurgery - Recommend infectious workup and ID involvement given ongoing elevation in WBC despite antibiotics. - Vascular neurology will continue to follow Please page Vascular Neurology at #[phone] with any questions. Umm Goodrich MD Neurology, PGY3 [place] [address] Associated attestation - Dinesh Bauer MD - 09/27/2024 9:24 PM EST Neurology Staff Note I have reviewed the resident's history during the visit and I agree with the details as written. Myphysical examination confirms the resident's findings. The assessment and plan were formulated in discussion with me at the time of the visit and I agree with them as documented. She opened her eyes spontaneously and followed simple commands. She had no obvious abdominal tenderness. There was L hemiplegia. CTs and MRI reviewed. CT abdomen done yesterday showed new anasarca and pulmonary edema. No site of secondary infection found and this was looked for given the strep anginosus in BAL At this time, I have no new recommendations regarding her stroke except for ongoing rehab team evaluations and to consider placement of a Gtube when the cause of the leukocytosis is clarified since she doesn't look close to being cleared to swallow. I would ask the ID team to comment further about any additional testing indicated. If you plan to have her transferred to our service tomorrow, please consider obtaining a Medicine consultation givenher active medical problems so we have their support, and ask for ongoing input from Care Management team re the need for long-term care and possible a guardian and whether there is an advance directive (I dont see one on file). * Initial Assessments - Areli Hathaway, [employer] - 09/27/2024 11:31 AM EST Speech Therapy Clinical Swallow Evaluation Patient Profile: Lucero Bruno is a 74 y.o. female with PMHx of A-fib, CHRISTOPHER, HLD, and prior IPH (04/2024) who presented to [facility] on 09/16/2024 for placement of Watchman with cardiology. She developed headaches and nausea post-operatively and was found to have a large R [id number] IPH, now s/p craniotomy. Patient was intubated from 09/16-09/21 with extubation complicated by stridor requiring re-intubation from 09/21-09/26 (11 days total). [employer]MER was consulted on 09/21 per CVA protocol with clinical swallow evaluation completed on 09/27. Prior Level of Function: Patient is known to our service from an inpatient evaluation completed during her 04/2024 admission for IPH. At that time, she presented with a functional oropharyngeal swallow and homonymous hemianopsia impacting her ability to read. Today, she used head nods and gestures to deny swallowing difficulty prior to this admission. She tolerates a regular diet at baseline. Relevant Imaging: CT Head (09/26/2024) IMPRESSION 1. Stable right-sided parenchymal and subdural hemorrhages, associated mass effect and midline shift. 2. Stable left intraventricular hemorrhage. 3. No new or enlarging hemorrhages or extra-axial collections. CTA Chest for Pulmonary Embolism (pulmonary findings only; 09/26/2024) IMPRESSION 1. Stable right-sided parenchymal and subdural hemorrhages, associated mass effect and midline shift. 2. Stable left intraventricular hemorrhage. 3. No new or enlarging hemorrhages or extra-axial collections. Subjective: Patient received lying in bed, staring off to her right side. She was engaged and cooperative with care despite significant motor limitations. Objective: Patient seen for evaluation today. Pain: No acute signs of discomfort Respiratory Status: Nasal canula 3 L/min, satting 96% Vision: L homonymous hemianopsia prior to admission with ongoing visual deficits; unable to scan past midline despite cues Hearing: Functional for evaluation Current Diet: NPO diet (Give Meds) Feeding and Oral Care: Patient requires cues and/or assistance due to significant motor limitations; able to accept and bring a swab or [place] to her mouth with verbal cues for direction (overshoots to L) Cognitive-Linguistic Status: Alert and fully oriented when assessed using Y/N questions Responds to Y/N questions promptly and appropriately using a combination of head nods and gestures Follows Commands: Follows single step commands as able (significant motor impairment) Positioning: HOB at 50 degrees Oral Motor Examination: WFL Impaired Comments STRUCTURES Facial Symmetry X Left facial droop Lips X Reduced retraction bilaterally, more pronounced on L Tongue X Deviates L on protrusion; limited range of motion with poor agility and coordination Jaw X Reduced jaw opening Palate/Velum X Dentition X Missing right upper teeth and multiple others; visible decay; completed oral care usingsuction toothbrush prior to completing PO trials OTHER Phonation X Minimal phonation attempts are hypophonic, strained, and breathy; phonates to command Intelligibility X No attempts to verbalize Volitional Cough X Reduced Sensation X Per patient report Secretion Management X Pooling in buccal cavities, likely due to limited tongue movement Bolus Presentation(s): Tested Comments Thin liquids X Water via swab [place] thick liquids Honey thick liquids Pureed solids Dysphagia soft Mechanical soft Regular solids Pills Other X Ice chips Oral Preparatory Phase Mastication: No attempts with ice chips Oral transit: Poor lingual movement and control with minimal attempts at A-P transit Bolus cohesion: Suspect reduced due to poor lingual movement and control Oral containment: Poor labial seal; none with head slightly tilted back Oral stasis: None after a prolonged period of oral holding followed by swallow Pharyngeal Phase Swallow initiation: Present after a prolonged period of oral holding Vocal quality change: None Cough / throat clear: Delayed throat clearing with swabs of water Pt complaint of food getting stuck: None with limited volumes and consistencies Fatigue across trials: None with slow rate Respiratory rate and respiratory swallow pattern: Unlabored and coordinated Esophageal Phase Unable to comment meaningfully with limited trials Compensatory Techniques: 1:1 feeding assistance, extended time, verbal cues to attempt oral manipulation RISK FACTORS FOR ASPIRATION PNEUMONIA X Stroke or other neurological disease X + number decayed teeth, poor oral hygiene COPD, CHF X Dependency for oral care and/or feeding GI disease, especially esophageal dysmotility X Reduced mobility, bed bound Active tobacco use X Use of tube feed, especially via NGT/DHT Immunocompromised HOB below 30 degrees Use of sedating medications or PPI UTI Reduced level of alertness and/or delirium X Advanced age Education: Patient educated on results and recommendations, and verbalized understanding. Patient status and swallow recommendations were discussed with nursing, respiratory therapy, and the primary team. Assessment: Lucero Bruno was seen for a clinical swallow evaluation. Oral motor examination was significant for limited orofacial range of motion, strength (L>R), agility, and coordination along with a soft, strained, and breathy vocal quality. This may be secondary to Aubree's brain injury, her multiple prolonged (and reportedly traumatic) intubations, or both. Aubree attempted to phonate to command but did not verbalize. However, she was alert and engaged throughout the session, and consistently responded to Y/N questions using a combination of head nods and hand gestures. Aubree completed PO trials of ice chips and water via swab. She presented with minimal oral manipulation due to poor lingual movement and control. Her spontaneous swallow was present. Aubree presented with intermittent signs of aspiration with swabs of water. She reported feeling that ice chips were ea sier to swallow compared to water swabs. While Aubree's oral motor function is not currently sufficient for meaningful PO intake, I would recommend providing single ice chips for comfort and practice between [employer] sessions. We will continue to perform serial reassessments, likely including an instrumental evaluation once she can more reliably tolerate PO intake. Diagnosis: Oral and suspected pharyngeal dysphagia 2/2 IPH, dysphonia 2/2 IPH vs. mutliple prolonged and reportedly traumatic intubations Recommendations: Diet: NPO, May offer individual ice chips for pleasure / practice Ice Chip Protocol This protocol allows patients who are NPO (nothing by mouth) to have ice chips under certain conditions in order to promote oral hydration and prevent atrophy of the swallowing muscles. It is based on evidence indicating that aspiration of small amounts of water is a benign event - unlike juice, soda or coffee, water has a neutral pH level. Therefore, it is well tolerated by the lungs and is quickly absorbed into the bloodstream. Guidelines: Ensure patient is alert, awake, and stable from a respiratory standpoint. Ensure patient is sitting upright. Provide frequent and thorough oral care. Oral care must be provided before giving ice chips Patient may have ice chips following oral care: Provide small single ice chips, one at a time. Allow adequate time after each ice chip for patient to cough or clear their throat if needed. Provide no more than a few (~1-5) ice chips in one sitting. Stop giving ice chips if patient fatigues or becomes uncomfortable. PO Medications: IV or other alternative means only Aspiration Precautions: Sit upright with all PO intake Single ice chips only Patient will require feeding assistance Excellent oral care to reduce risk of aspiration pneumonia Pt will benefit from continued [employer] services while hospitalized Speech Therapy Goals: (To be met by discharge) Pt will tolerate the least restrictive diet without further respiratory decompensation. NEW Pt / caregiver will be independent with aspiration precautions, diet modifications, and safe swallowing strategies. NEW Plan: Therapy Frequency ([employer] Eval): 3-5 times/wk Patient is in agreement with the plan of care. Total Minutes (Speech Language Pathology): 35 Thanks for the opportunity to contribute to this patient's care. Please feel free to page me with any questions or concerns. Areli Hathaway MS, [facility] Speech-Language Pathologist Inpatient Rehabilitation Pager # [phone] * Plan of Care - Jose Franco RN - 09/26/2024 7:27 PM EST OUTCOME EVALUATION NOTE: OUTCOME SUMMARY: CT Head, CTA Chest, CT Abdomen & Pelvis obtained A&Ox4, Follows RUE & RLE, Withdrawing to pain LLE & LUE; pupils equal and sluggishly reactive to light; PRN Fentanyl x3 for pain Extubated today ~1530, currently on NC 5L NSR to ST, labetalol x1 Flexiseal w/ liquid output, NPO give meds Hill w/ AUOP PLAN MOVING FORWARD: Q2 Neurochecks Q1 Vitals Q2 I/Os CPG GOAL OUTCOME EVALUATION: Problem: Adjustment to Illness (Stroke, Ischemic/Transient Ischemic Attack) Goal: Optimal Coping Outcome: Ongoing (Interventions Implemented as Appropriate) Problem: Bowel Elimination Impaired (Stroke, Ischemic/Transient Ischemic Attack) Goal: Effective Bowel Elimination Outcome: Ongoing (Interventions Implemented as Appropriate) Problem: Cerebral Tissue Perfusion (Stroke, Ischemic/Transient Ischemic Attack) Goal: Optimal Cerebral Tissue Perfusion Outcome: Ongoing (Interventions Implemented as Appropriate) Problem: Cognitive Impairment (Stroke, Ischemic/Transient Ischemic Attack) Goal: Optimal Cognitive Function Outcome: Ongoing (Interventions Implemented as Appropriate) Problem: Communication Impairment (Stroke, Ischemic/Transient Ischemic Attack) Goal: Improved Communication Skills Outcome: Ongoing (Interventions Implemented as Appropriate) Problem: Functional Ability Impaired (Stroke, Ischemic/Transient Ischemic Attack) Goal: Optimal Functional Ability Outcome: Ongoing (Interventions Implemented as Appropriate) Problem: Respiratory Compromise (Stroke, Ischemic/Transient Ischemic Attack) Goal: Effective Oxygenation and Ventilation Outcome: Ongoing (Interventions Implemented as Appropriate) Problem: Sensorimotor Impairment (Stroke, Ischemic/Transient Ischemic Attack) Goal: Improved Sensorimotor Function Outcome: Ongoing (Interventions Implemented as Appropriate) Problem: Eating/Swallowing Impairment (Stroke, Ischemic/Transient Ischemic Attack) Goal: Oral Intake without Aspiration Outcome: Ongoing (Interventions Implemented as Appropriate) Problem: Urinary Elimination Impaired (Stroke, Ischemic/Transient Ischemic Attack) Goal: Effective Urinary Elimination Outcome: Ongoing (Interventions Implemented as Appropriate) Problem: Pain Acute Goal: Acceptable Pain Control and Functional Ability Outcome: Ongoing (Interventions Implemented as Appropriate) Problem: Bleeding (Surgery Nonspecified) Goal: Absence of Bleeding Outcome: Ongoing (Interventions Implemented as Appropriate) Problem: Bowel Motility Impaired (Surgery Nonspecified) Goal: Effective Bowel Elimination Outcome: Ongoing (Interventions Implemented as Appropriate) Problem: Infection (Surgery Nonspecified) Goal: Absence of Infection Signs and Symptoms Outcome: Ongoing (Interventions Implemented as Appropriate) Problem: Ongoing Anesthesia Effects (Surgery Nonspecified) Goal: Anesthesia/Sedation Recovery Outcome: Ongoing (Interventions Implemented as Appropriate) Problem: Pain (Surgery Nonspecified) Goal: Acceptable Pain Control Outcome: Ongoing (Interventions Implemented as Appropriate) Problem: Postoperative Nausea and Vomiting (Surgery Nonspecified) Goal: Nausea and Vomiting Relief Outcome: Ongoing (Interventions Implemented as Appropriate) Problem: Postoperative Urinary Retention (Surgery Nonspecified) Goal: Effective Urinary Elimination Outcome: Ongoing (Interventions Implemented as Appropriate) Problem: Infection Goal: Absence of Infection Signs and Symptoms Outcome: Ongoing (Interventions Implemented as Appropriate) Problem: Communication Impairment (Mechanical Ventilation, Invasive) Goal: Effective Communication Outcome: Ongoing (Interventions Implemented as Appropriate) Problem: Device-Related Complication Risk (Mechanical Ventilation, Invasive) Goal: Optimal Device Function Outcome: Ongoing (Interventions Implemented as Appropriate) Problem: Inability to Wean (Mechanical Ventilation, Invasive) Goal: Mechanical Ventilation Liberation Outcome: Ongoing (Interventions Implemented as Appropriate) Problem: Nutrition Impairment (Mechanical Ventilation, Invasive) Goal: Optimal Nutrition Delivery Outcome: Ongoing (Interventions Implemented as Appropriate) Problem: Skin and Tissue Injury (Mechanical Ventilation, Invasive) Goal: Absence of Device-Related Skin and Tissue Injury Outcome: Ongoing (Interventions Implemented as Appropriate) Problem: Ventilator-Induced Lung Injury (Mechanical Ventilation, Invasive) Goal: Absence of Ventilator-Induced Lung Injury Outcome: Ongoing (Interventions Implemented as Appropriate) Problem: Seizure, Active Management Goal: Absence of Seizure/Seizure-Related Injury Outcome: Ongoing (Interventions Implemented as Appropriate) Problem: Bleeding (Craniotomy/Craniectomy/Cranioplasty) Goal: Absence of Bleeding Outcome: Ongoing (Interventions Implemented as Appropriate) Problem: Cerebral Tissue Perfusion Risk (Craniotomy/Craniectomy/Cranioplasty) Goal: Effective Cerebral Tissue Perfusion Outcome: Ongoing (Interventions Implemented as Appropriate) Problem: Fluid Imbalance (Craniotomy/Craniectomy/Cranioplasty) Goal: Fluid Balance Outcome: Ongoing (Interventions Implemented as Appropriate) Problem: Infection (Craniotomy/Craniectomy/Cranioplasty) Goal: Absence of Infection Signs and Symptoms Outcome: Ongoing (Interventions Implemented as Appropriate) Problem: Ongoing Anesthesia Effects (Craniotomy/Craniectomy/Cranioplasty) Goal: Anesthesia/Sedation Recovery Outcome: Ongoing (Interventions Implemented as Appropriate) Problem: Pain (Craniotomy/Craniectomy/Cranioplasty) Goal: Acceptable Pain Control Outcome: Ongoing (Interventions Implemented as Appropriate) Problem: Postoperative Nausea and Vomiting (Craniotomy/Craniectomy/Cranioplasty) Goal: Nausea and Vomiting Relief Outcome: Ongoing (Interventions Implemented as Appropriate) Problem: Postoperative Urinary Retention (Craniotomy/Craniectomy/Cranioplasty) Goal: Effective Urinary Elimination Outcome: Ongoing (Interventions Implemented as Appropriate) * Consult Note - Rae Gabriel MD - 09/26/2024 11:03 AM EST Infectious Disease Reason for consult: Persistent leukocytosis Requesting: Mariola Calixto MD History of Present Illness: 74 year-old female with a PMH of PAF and prior right occiptal ICH who was admitted to on 09/16 to undergo Watchman procedure, in the PACU she developed a severe headache and was found to have a large right ICH which required craniotomy and hematoma evacuation. She had CXR on 09/21 which showed a new left basilar opacity. On 09/24 it was noted she had thick secretions accompanied by increased FiO2 requirements and BAL was done and piperacillin-tazobactam empirically started. Cultures are now growing strep anginosis. Over the last 3 days WBC has steadily risen with WBC of 30 today. Of note, the patient was on steroids following surgery (discontinued 09/23). 10-point ROS: negative other than that stated in HPI. Medications: reviewed Allergies/SE to antibiotics: none Family History: negative for recurrent infections or immunocompromised conditions Social History: Former smoker Objective: BP 138/67 (BP Location (NBP): Left arm, Patient Position: Lying) Pulse (!) 103 Temp 36.9 ??C (98.4 ??F) (Oral) Resp (!) 38 Ht 152.4 cm (5') Wt 89.2 kg (196 lb 10.4 oz) SpO2 96% BMI 38.41 kg/m?? We were unable to perform a detailed exam as the patient was being transported for imaging. Pertinent labs, microbiology, imaging and procedures were reviewed. Labs: 09/26 WBC 30.9 Hb 10.7 Plt 434 Cr 0.53 AP 81 AST/ALT Micro: 09/18 blood cultures - no growth 09/18 lower respiratory cultures - rare NURF 09/22 MRSA PCR - negative 09/23: Lung, Left Lower Lobe; Bronchial Alveolar Lavage Quantitative Bacterial Culture >100,000 CFU/mL Streptococcus anginosus group Abnormal 50 CFU/mL mixed bacterial morphotypes suggestive of normal upper respiratory franco Gram Stain Abnormal Cytocentrifuge Gram Stain performed neutrophils Moderate Gram negative rods Many Mixed bacterial morphotypes suggestive of normal upper respiratory franco EKG/Echo - reviewed Imaging - reviewed 09/21 CXR New left basilar opacity silhouetting the diaphragm. No pneumothorax Procedures - reviewed 09/16 - right craniotomy for IPH evacuation Impression: 74 year-old female with a PMH of PAF and prior right occiptal ICH who was admitted to on 09/16 to undergo Watchman procedure and subsequently developed large right ICH which required craniotomy and hematoma evacuation. She is now being treated with piperacillin-tazobactam for a HAP with Strep anginosis on BAL cultures and worsening leukocytosis. The presence of strep anginosis also raises the question of possible bacteremia and potential for other sites of seeding. She is already planned forpanCT by primary team and this will help identify any drainable abscess/collection. We recommend obtaining blood cultures and continuing piperacillin-tazobactam as we await further work-up. Recommendations: -Please continue piperacillin-tazobactam -Obtain blood cultures -Follow imaging -Check at least weekly CBC and CMP to assess for antibiotic mediated toxicities Recommendations shared with primary team. Thank you for this consult, we will follow with you. Please call with questions, pager [phone]. Discussed with attending, Dr. Gabriel. Chino Washburn MD Infectious Disease Fellow 09/26/24 Infectious Diseases Attending I have seen but could not examine this patient, who was being wheeled to radiology at time of our rounds. I have reviewed and agree with the history, findings, assessment, and plan of care as documented in the ID fellow's note. I spent a total of 65 minutes on the date of service on the [id number] encounter, chart review, clinical decision making, documentation, and coordination of care. Rae Gabriel MD Professor, Department of Medicine Page [phone] * Plan of Care - Eleazar Mc RN - 09/25/2024 11:21 PM EDT Problem: Adjustment to Illness (Stroke, Ischemic/Transient Ischemic Attack) Goal: Optimal Coping Outcome: Ongoing (Interventions Implemented as Appropriate) Problem: Bowel Elimination Impaired (Stroke, Ischemic/Transient Ischemic Attack) Goal: Effective Bowel Elimination Outcome: Ongoing (Interventions Implemented as Appropriate) Problem: Cerebral Tissue Perfusion (Stroke, Ischemic/Transient Ischemic Attack) Goal: Optimal Cerebral Tissue Perfusion Outcome: Ongoing (Interventions Implemented as Appropriate) Problem: Cognitive Impairment (Stroke, Ischemic/Transient Ischemic Attack) Goal: Optimal Cognitive Function Outcome: Ongoing (Interventions Implemented as Appropriate) Problem: Communication Impairment (Stroke, Ischemic/Transient Ischemic Attack) Goal: Improved Communication Skills Outcome: Ongoing (Interventions Implemented as Appropriate) Problem: Functional Ability Impaired (Stroke, Ischemic/Transient Ischemic Attack) Goal: Optimal Functional Ability Outcome: Ongoing (Interventions Implemented as Appropriate) Problem: Respiratory Compromise (Stroke, Ischemic/Transient Ischemic Attack) Goal: Effective Oxygenation and Ventilation Outcome: Ongoing (Interventions Implemented as Appropriate) Problem: Sensorimotor Impairment (Stroke, Ischemic/Transient Ischemic Attack) Goal: Improved Sensorimotor Function Outcome: Ongoing (Interventions Implemented as Appropriate) Problem: Eating/Swallowing Impairment (Stroke, Ischemic/Transient Ischemic Attack) Goal: Oral Intake without Aspiration Outcome: Ongoing (Interventions Implemented as Appropriate) Problem: Urinary Elimination Impaired (Stroke, Ischemic/Transient Ischemic Attack) Goal: Effective Urinary Elimination Outcome: Ongoing (Interventions Implemented as Appropriate) Problem: Pain Acute Goal: Acceptable Pain Control and Functional Ability Outcome: Ongoing (Interventions Implemented as Appropriate) Problem: Bleeding (Surgery Nonspecified) Goal: Absence of Bleeding Outcome: Ongoing (Interventions Implemented as Appropriate) Problem: Bowel Motility Impaired (Surgery Nonspecified) Goal: Effective Bowel Elimination Outcome: Ongoing (Interventions Implemented as Appropriate) Problem: Infection (Surgery Nonspecified) Goal: Absence of Infection Signs and Symptoms Outcome: Ongoing (Interventions Implemented as Appropriate) Problem: Ongoing Anesthesia Effects (Surgery Nonspecified) Goal: Anesthesia/Sedation Recovery Outcome: Ongoing (Interventions Implemented as Appropriate) Problem: Pain (Surgery Nonspecified) Goal: Acceptable Pain Control Outcome: Ongoing (Interventions Implemented as Appropriate) Problem: Postoperative Nausea and Vomiting (Surgery Nonspecified) Goal: Nausea and Vomiting Relief Outcome: Ongoing (Interventions Implemented as Appropriate) Problem: Postoperative Urinary Retention (Surgery Nonspecified) Goal: Effective Urinary Elimination Outcome: Ongoing (Interventions Implemented as Appropriate) Problem: Infection Goal: Absence of Infection Signs and Symptoms Outcome: Ongoing (Interventions Implemented as Appropriate) Problem: Communication Impairment (Mechanical Ventilation, Invasive) Goal: Effective Communication Outcome: Ongoing (Interventions Implemented as Appropriate) Problem: Device-Related Complication Risk (Mechanical Ventilation, Invasive) Goal: Optimal Device Function Outcome: Ongoing (Interventions Implemented as Appropriate) Problem: Inability to Wean (Mechanical Ventilation, Invasive) Goal: Mechanical Ventilation Liberation Outcome: Ongoing (Interventions Implemented as Appropriate) Problem: Nutrition Impairment (Mechanical Ventilation, Invasive) Goal: Optimal Nutrition Delivery Outcome: Ongoing (Interventions Implemented as Appropriate) Problem: Skin and Tissue Injury (Mechanical Ventilation, Invasive) Goal: Absence of Device-Related Skin and Tissue Injury Outcome: Ongoing (Interventions Implemented as Appropriate) Problem: Ventilator-Induced Lung Injury (Mechanical Ventilation, Invasive) Goal: Absence of Ventilator-Induced Lung Injury Outcome: Ongoing (Interventions Implemented as Appropriate) Problem: Seizure, Active Management Goal: Absence of Seizure/Seizure-Related Injury Outcome: Ongoing (Interventions Implemented as Appropriate) Problem: Bleeding (Craniotomy/Craniectomy/Cranioplasty) Goal: Absence of Bleeding Outcome: Ongoing (Interventions Implemented as Appropriate) Problem: Cerebral Tissue Perfusion Risk (Craniotomy/Craniectomy/Cranioplasty) Goal: Effective Cerebral Tissue Perfusion Outcome: Ongoing (Interventions Implemented as Appropriate) Problem: Fluid Imbalance (Craniotomy/Craniectomy/Cranioplasty) Goal: Fluid Balance Outcome: Ongoing (Interventions Implemented as Appropriate) Problem: Infection (Craniotomy/Craniectomy/Cranioplasty) Goal: Absence of Infection Signs and Symptoms Outcome: Ongoing (Interventions Implemented as Appropriate) Problem: Ongoing Anesthesia Effects (Craniotomy/Craniectomy/Cranioplasty) Goal: Anesthesia/Sedation Recovery Outcome: Ongoing (Interventions Implemented as Appropriate) Problem: Pain (Craniotomy/Craniectomy/Cranioplasty) Goal: Acceptable Pain Control Outcome: Ongoing (Interventions Implemented as Appropriate) Problem: Postoperative Nausea and Vomiting (Craniotomy/Craniectomy/Cranioplasty) Goal: Nausea and Vomiting Relief Outcome: Ongoing (Interventions Implemented as Appropriate) Problem: Postoperative Urinary Retention (Craniotomy/Craniectomy/Cranioplasty) Goal: Effective Urinary Elimination Outcome: Ongoing (Interventions Implemented as Appropriate) * Plan of Care - Post, Sherrie Castañeda RN - 09/25/2024 3:44 PM EDT Problem: Adjustment to Illness (Stroke, Ischemic/Transient Ischemic Attack) Goal: Optimal Coping Outcome: Ongoing (Interventions Implemented as Appropriate) Problem: Bowel Elimination Impaired (Stroke, Ischemic/Transient Ischemic Attack) Goal: Effective Bowel Elimination Outcome: Ongoing (Interventions Implemented as Appropriate) Problem: Cerebral Tissue Perfusion (Stroke, Ischemic/Transient Ischemic Attack) Goal: Optimal Cerebral Tissue Perfusion Outcome: Ongoing (Interventions Implemented as Appropriate) Problem: Cognitive Impairment (Stroke, Ischemic/Transient Ischemic Attack) Goal: Optimal Cognitive Function Outcome: Ongoing (Interventions Implemented as Appropriate) Problem: Communication Impairment (Stroke, Ischemic/Transient Ischemic Attack) Goal: Improved Communication Skills Outcome: Ongoing (Interventions Implemented as Appropriate) Problem: Functional Ability Impaired (Stroke, Ischemic/Transient Ischemic Attack) Goal: Optimal Functional Ability Outcome: Ongoing (Interventions Implemented as Appropriate) Problem: Respiratory Compromise (Stroke, Ischemic/Transient Ischemic Attack) Goal: Effective Oxygenation and Ventilation Outcome: Ongoing (Interventions Implemented as Appropriate) Problem: Sensorimotor Impairment (Stroke, Ischemic/Transient Ischemic Attack) Goal: Improved Sensorimotor Function Outcome: Ongoing (Interventions Implemented as Appropriate) Problem: Eating/Swallowing Impairment (Stroke, Ischemic/Transient Ischemic Attack) Goal: Oral Intake without Aspiration Outcome: Ongoing (Interventions Implemented as Appropriate) Problem: Urinary Elimination Impaired (Stroke, Ischemic/Transient Ischemic Attack) Goal: Effective Urinary Elimination Outcome: Ongoing (Interventions Implemented as Appropriate) Problem: Pain Acute Goal: Acceptable Pain Control and Functional Ability Outcome: Ongoing (Interventions Implemented as Appropriate) Problem: Bleeding (Surgery Nonspecified) Goal: Absence of Bleeding Outcome: Ongoing (Interventions Implemented as Appropriate) Problem: Bowel Motility Impaired (Surgery Nonspecified) Goal: Effective Bowel Elimination Outcome: Ongoing (Interventions Implemented as Appropriate) Problem: Infection (Surgery Nonspecified) Goal: Absence of Infection Signs and Symptoms Outcome: Ongoing (Interventions Implemented as Appropriate) Problem: Ongoing Anesthesia Effects (Surgery Nonspecified) Goal: Anesthesia/Sedation Recovery Outcome: Ongoing (Interventions Implemented as Appropriate) Problem: Pain (Surgery Nonspecified) Goal: Acceptable Pain Control Outcome: Ongoing (Interventions Implemented as Appropriate) Problem: Postoperative Nausea and Vomiting (Surgery Nonspecified) Goal: Nausea and Vomiting Relief Outcome: Ongoing (Interventions Implemented as Appropriate) Problem: Postoperative Urinary Retention (Surgery Nonspecified) Goal: Effective Urinary Elimination Outcome: Ongoing (Interventions Implemented as Appropriate) Problem: Infection Goal: Absence of Infection Signs and Symptoms Outcome: Ongoing (Interventions Implemented as Appropriate) Problem: Communication Impairment (Mechanical Ventilation, Invasive) Goal: Effective Communication Outcome: Ongoing (Interventions Implemented as Appropriate) Problem: Device-Related Complication Risk (Mechanical Ventilation, Invasive) Goal: Optimal Device Function Outcome: Ongoing (Interventions Implemented as Appropriate) Problem: Inability to Wean (Mechanical Ventilation, Invasive) Goal: Mechanical Ventilation Liberation Outcome: Ongoing (Interventions Implemented as Appropriate) Problem: Nutrition Impairment (Mechanical Ventilation, Invasive) Goal: Optimal Nutrition Delivery Outcome: Ongoing (Interventions Implemented as Appropriate) Problem: Skin and Tissue Injury (Mechanical Ventilation, Invasive) Goal: Absence of Device-Related Skin and Tissue Injury Outcome: Ongoing (Interventions Implemented as Appropriate) Problem: Ventilator-Induced Lung Injury (Mechanical Ventilation, Invasive) Goal: Absence of Ventilator-Induced Lung Injury Outcome: Ongoing (Interventions Implemented as Appropriate) Problem: Seizure, Active Management Goal: Absence of Seizure/Seizure-Related Injury Outcome: Ongoing (Interventions Implemented as Appropriate) Problem: Bleeding (Craniotomy/Craniectomy/Cranioplasty) Goal: Absence of Bleeding Outcome: Ongoing (Interventions Implemented as Appropriate) Problem: Cerebral Tissue Perfusion Risk (Craniotomy/Craniectomy/Cranioplasty) Goal: Effective Cerebral Tissue Perfusion Outcome: Ongoing (Interventions Implemented as Appropriate) Problem: Fluid Imbalance (Craniotomy/Craniectomy/Cranioplasty) Goal: Fluid Balance Outcome: Ongoing (Interventions Implemented as Appropriate) Problem: Infection (Craniotomy/Craniectomy/Cranioplasty) Goal: Absence of Infection Signs and Symptoms Outcome: Ongoing (Interventions Implemented as Appropriate) Problem: Ongoing Anesthesia Effects (Craniotomy/Craniectomy/Cranioplasty) Goal: Anesthesia/Sedation Recovery Outcome: Ongoing (Interventions Implemented as Appropriate) Problem: Pain (Craniotomy/Craniectomy/Cranioplasty) Goal: Acceptable Pain Control Outcome: Ongoing (Interventions Implemented as Appropriate) Problem: Postoperative Nausea and Vomiting (Craniotomy/Craniectomy/Cranioplasty) Goal: Nausea and Vomiting Relief Outcome: Ongoing (Interventions Implemented as Appropriate) Problem: Postoperative Urinary Retention (Craniotomy/Craniectomy/Cranioplasty) Goal: Effective Urinary Elimination Outcome: Ongoing (Interventions Implemented as Appropriate) * Plan of Care - Eleazar Mc RN - 09/24/2024 11:09 PM EDT Problem: Adjustment to Illness (Stroke, Ischemic/Transient Ischemic Attack) Goal: Optimal Coping Outcome: Ongoing (Interventions Implemented as Appropriate) Problem: Bowel Elimination Impaired (Stroke, Ischemic/Transient Ischemic Attack) Goal: Effective Bowel Elimination Outcome: Ongoing (Interventions Implemented as Appropriate) Problem: Cerebral Tissue Perfusion (Stroke, Ischemic/Transient Ischemic Attack) Goal: Optimal Cerebral Tissue Perfusion Outcome: Ongoing (Interventions Implemented as Appropriate) Problem: Cognitive Impairment (Stroke, Ischemic/Transient Ischemic Attack) Goal: Optimal Cognitive Function Outcome: Ongoing (Interventions Implemented as Appropriate) Problem: Communication Impairment (Stroke, Ischemic/Transient Ischemic Attack) Goal: Improved Communication Skills Outcome: Ongoing (Interventions Implemented as Appropriate) Problem: Functional Ability Impaired (Stroke, Ischemic/Transient Ischemic Attack) Goal: Optimal Functional Ability Outcome: Ongoing (Interventions Implemented as Appropriate) Problem: Respiratory Compromise (Stroke, Ischemic/Transient Ischemic Attack) Goal: Effective Oxygenation and Ventilation Outcome: Ongoing (Interventions Implemented as Appropriate) Problem: Sensorimotor Impairment (Stroke, Ischemic/Transient Ischemic Attack) Goal: Improved Sensorimotor Function Outcome: Ongoing (Interventions Implemented as Appropriate) Problem: Eating/Swallowing Impairment (Stroke, Ischemic/Transient Ischemic Attack) Goal: Oral Intake without Aspiration Outcome: Ongoing (Interventions Implemented as Appropriate) Problem: Urinary Elimination Impaired (Stroke, Ischemic/Transient Ischemic Attack) Goal: Effective Urinary Elimination Outcome: Ongoing (Interventions Implemented as Appropriate) Problem: Pain Acute Goal: Acceptable Pain Control and Functional Ability Outcome: Ongoing (Interventions Implemented as Appropriate) Problem: Bleeding (Surgery Nonspecified) Goal: Absence of Bleeding Outcome: Ongoing (Interventions Implemented as Appropriate) Problem: Bowel Motility Impaired (Surgery Nonspecified) Goal: Effective Bowel Elimination Outcome: Ongoing (Interventions Implemented as Appropriate) Problem: Infection (Surgery Nonspecified) Goal: Absence of Infection Signs and Symptoms Outcome: Ongoing (Interventions Implemented as Appropriate) Problem: Ongoing Anesthesia Effects (Surgery Nonspecified) Goal: Anesthesia/Sedation Recovery Outcome: Ongoing (Interventions Implemented as Appropriate) Problem: Pain (Surgery Nonspecified) Goal: Acceptable Pain Control Outcome: Ongoing (Interventions Implemented as Appropriate) Problem: Postoperative Nausea and Vomiting (Surgery Nonspecified) Goal: Nausea and Vomiting Relief Outcome: Ongoing (Interventions Implemented as Appropriate) Problem: Postoperative Urinary Retention (Surgery Nonspecified) Goal: Effective Urinary Elimination Outcome: Ongoing (Interventions Implemented as Appropriate) Problem: Infection Goal: Absence of Infection Signs and Symptoms Outcome: Ongoing (Interventions Implemented as Appropriate) Problem: Communication Impairment (Mechanical Ventilation, Invasive) Goal: Effective Communication Outcome: Ongoing (Interventions Implemented as Appropriate) Problem: Device-Related Complication Risk (Mechanical Ventilation, Invasive) Goal: Optimal Device Function Outcome: Ongoing (Interventions Implemented as Appropriate) Problem: Inability to Wean (Mechanical Ventilation, Invasive) Goal: Mechanical Ventilation Liberation Outcome: Ongoing (Interventions Implemented as Appropriate) Problem: Nutrition Impairment (Mechanical Ventilation, Invasive) Goal: Optimal Nutrition Delivery Outcome: Ongoing (Interventions Implemented as Appropriate) Problem: Skin and Tissue Injury (Mechanical Ventilation, Invasive) Goal: Absence of Device-Related Skin and Tissue Injury Outcome: Ongoing (Interventions Implemented as Appropriate) Problem: Ventilator-Induced Lung Injury (Mechanical Ventilation, Invasive) Goal: Absence of Ventilator-Induced Lung Injury Outcome: Ongoing (Interventions Implemented as Appropriate) Problem: Seizure, Active Management Goal: Absence of Seizure/Seizure-Related Injury Outcome: Ongoing (Interventions Implemented as Appropriate) Problem: Bleeding (Craniotomy/Craniectomy/Cranioplasty) Goal: Absence of Bleeding Outcome: Ongoing (Interventions Implemented as Appropriate) Problem: Cerebral Tissue Perfusion Risk (Craniotomy/Craniectomy/Cranioplasty) Goal: Effective Cerebral Tissue Perfusion Outcome: Ongoing (Interventions Implemented as Appropriate) Problem: Fluid Imbalance (Craniotomy/Craniectomy/Cranioplasty) Goal: Fluid Balance Outcome: Ongoing (Interventions Implemented as Appropriate) Problem: Infection (Craniotomy/Craniectomy/Cranioplasty) Goal: Absence of Infection Signs and Symptoms Outcome: Ongoing (Interventions Implemented as Appropriate) Problem: Ongoing Anesthesia Effects (Craniotomy/Craniectomy/Cranioplasty) Goal: Anesthesia/Sedation Recovery Outcome: Ongoing (Interventions Implemented as Appropriate) Problem: Pain (Craniotomy/Craniectomy/Cranioplasty) Goal: Acceptable Pain Control Outcome: Ongoing (Interventions Implemented as Appropriate) Problem: Postoperative Nausea and Vomiting (Craniotomy/Craniectomy/Cranioplasty) Goal: Nausea and Vomiting Relief Outcome: Ongoing (Interventions Implemented as Appropriate) Problem: Postoperative Urinary Retention (Craniotomy/Craniectomy/Cranioplasty) Goal: Effective Urinary Elimination Outcome: Ongoing (Interventions Implemented as Appropriate) * Plan of Care - Kristen Florentino RN - 09/24/2024 12:52 PM EDT OUTCOME EVALUATION NOTE: OUTCOME SUMMARY: Neuro: Patient on dexmedetomidine infusion. Following commands with right extremities, flaccid leftextremities. Left eye dysconjugate with downward deviation. PERRLA. Craniotomy incision clean/dry, stacey intact, open to air. Resp: ETT 7.5 22 @teeth. PS 5/5 @30%. Secretions zapata/thick odorous inline. Treating pneumonia witghpip-jose a. CV: Tmax: 37.8, gave tylenol. Held PM diltiazem SBP <100. GI: Tube feeds restarted. Loose BM x1. : Hill remains in place, urine sediment noted. Gave 500ml NS bolus for hypovolemia x2. Gave 25mcg of fentanyl for discomfort 1x. PLAN MOVING FORWARD: q2h NC q1h VS MAP >60 INDIVIDUALIZED FALL PREVENTION INTERVENTIONS: Patient-specific fall risk factors per assessment: [current deficits]: ETT, hill, PICC, telemetry. Assistance [level of assistance required for transfers and ambulation]: 2 assist, dependent Supervision [direct monitoring required during toileting and ADLs]: 2 assist, dependent Surveillance [continuous indirect monitoring]: ICU monitoring Patient-specific fall prevention interventions for sensory deficits provided, if applicable: [X] N/A CPG GOAL OUTCOME EVALUATION: Problem: Adjustment to Illness (Stroke, Ischemic/Transient Ischemic Attack) Goal: Optimal Coping Outcome: Ongoing (Interventions Implemented as Appropriate) Problem: Bowel Elimination Impaired (Stroke, Ischemic/Transient Ischemic Attack) Goal: Effective Bowel Elimination Outcome: Ongoing (Interventions Implemented as Appropriate) Problem: Cerebral Tissue Perfusion (Stroke, Ischemic/Transient Ischemic Attack) Goal: Optimal Cerebral Tissue Perfusion Outcome: Ongoing (Interventions Implemented as Appropriate) Problem: Cognitive Impairment (Stroke, Ischemic/Transient Ischemic Attack) Goal: Optimal Cognitive Function Outcome: Ongoing (Interventions Implemented as Appropriate) Problem: Communication Impairment (Stroke, Ischemic/Transient Ischemic Attack) Goal: Improved Communication Skills Outcome: Ongoing (Interventions Implemented as Appropriate) Problem: Functional Ability Impaired (Stroke, Ischemic/Transient Ischemic Attack) Goal: Optimal Functional Ability Outcome: Ongoing (Interventions Implemented as Appropriate) Problem: Respiratory Compromise (Stroke, Ischemic/Transient Ischemic Attack) Goal: Effective Oxygenation and Ventilation Outcome: Ongoing (Interventions Implemented as Appropriate) Problem: Sensorimotor Impairment (Stroke, Ischemic/Transient Ischemic Attack) Goal: Improved Sensorimotor Function Outcome: Ongoing (Interventions Implemented as Appropriate) Problem: Eating/Swallowing Impairment (Stroke, Ischemic/Transient Ischemic Attack) Goal: Oral Intake without Aspiration Outcome: Ongoing (Interventions Implemented as Appropriate) Problem: Urinary Elimination Impaired (Stroke, Ischemic/Transient Ischemic Attack) Goal: Effective Urinary Elimination Outcome: Ongoing (Interventions Implemented as Appropriate) Problem: Pain Acute Goal: Acceptable Pain Control and Functional Ability Outcome: Ongoing (Interventions Implemented as Appropriate) Problem: Bleeding (Surgery Nonspecified) Goal: Absence of Bleeding Outcome: Ongoing (Interventions Implemented as Appropriate) Problem: Bowel Motility Impaired (Surgery Nonspecified) Goal: Effective Bowel Elimination Outcome: Ongoing (Interventions Implemented as Appropriate) Problem: Infection (Surgery Nonspecified) Goal: Absence of Infection Signs and Symptoms Outcome: Ongoing (Interventions Implemented as Appropriate) Problem: Ongoing Anesthesia Effects (Surgery Nonspecified) Goal: Anesthesia/Sedation Recovery Outcome: Ongoing (Interventions Implemented as Appropriate) Problem: Pain (Surgery Nonspecified) Goal: Acceptable Pain Control Outcome: Ongoing (Interventions Implemented as Appropriate) Problem: Postoperative Nausea and Vomiting (Surgery Nonspecified) Goal: Nausea and Vomiting Relief Outcome: Ongoing (Interventions Implemented as Appropriate) Problem: Postoperative Urinary Retention (Surgery Nonspecified) Goal: Effective Urinary Elimination Outcome: Ongoing (Interventions Implemented as Appropriate) Problem: Infection Goal: Absence of Infection Signs and Symptoms Outcome: Ongoing (Interventions Implemented as Appropriate) Problem: Communication Impairment (Mechanical Ventilation, Invasive) Goal: Effective Communication Outcome: Ongoing (Interventions Implemented as Appropriate) Problem: Device-Related Complication Risk (Mechanical Ventilation, Invasive) Goal: Optimal Device Function Outcome: Ongoing (Interventions Implemented as Appropriate) Problem: Inability to Wean (Mechanical Ventilation, Invasive) Goal: Mechanical Ventilation Liberation Outcome: Ongoing (Interventions Implemented as Appropriate) Problem: Nutrition Impairment (Mechanical Ventilation, Invasive) Goal: Optimal Nutrition Delivery Outcome: Ongoing (Interventions Implemented as Appropriate) Problem: Skin and Tissue Injury (Mechanical Ventilation, Invasive) Goal: Absence of Device-Related Skin and Tissue Injury Outcome: Ongoing (Interventions Implemented as Appropriate) Problem: Ventilator-Induced Lung Injury (Mechanical Ventilation, Invasive) Goal: Absence of Ventilator-Induced Lung Injury Outcome: Ongoing (Interventions Implemented as Appropriate) Problem: Seizure, Active Management Goal: Absence of Seizure/Seizure-Related Injury Outcome: Ongoing (Interventions Implemented as Appropriate) Problem: Bleeding (Craniotomy/Craniectomy/Cranioplasty) Goal: Absence of Bleeding Outcome: Ongoing (Interventions Implemented as Appropriate) Problem: Cerebral Tissue Perfusion Risk (Craniotomy/Craniectomy/Cranioplasty) Goal: Effective Cerebral Tissue Perfusion Outcome: Ongoing (Interventions Implemented as Appropriate) Problem: Fluid Imbalance (Craniotomy/Craniectomy/Cranioplasty) Goal: Fluid Balance Outcome: Ongoing (Interventions Implemented as Appropriate) Problem: Infection (Craniotomy/Craniectomy/Cranioplasty) Goal: Absence of Infection Signs and Symptoms Outcome: Ongoing (Interventions Implemented as Appropriate) Problem: Ongoing Anesthesia Effects (Craniotomy/Craniectomy/Cranioplasty) Goal: Anesthesia/Sedation Recovery Outcome: Ongoing (Interventions Implemented as Appropriate) Problem: Pain (Craniotomy/Craniectomy/Cranioplasty) Goal: Acceptable Pain Control Outcome: Ongoing (Interventions Implemented as Appropriate) Problem: Postoperative Nausea and Vomiting (Craniotomy/Craniectomy/Cranioplasty) Goal: Nausea and Vomiting Relief Outcome: Ongoing (Interventions Implemented as Appropriate) Problem: Postoperative Urinary Retention (Craniotomy/Craniectomy/Cranioplasty) Goal: Effective Urinary Elimination Outcome: Ongoing (Interventions Implemented as Appropriate) * Plan of Care - Hank Oquendo RN - 09/24/2024 5:36 AM EDT Images from the original note were not included. OUTCOME EVALUATION NOTE: OUTCOME SUMMARY: Rt UE/LE 3+, Lft UE 1+, lft LE 2+, A+O x 4, left eye deviates downward, right eye PERRLA, 3mm in both. Patient has some non coordinated movement in LUE and LLE when asked to move limbs, waxed and waned over shift with alertness. PS - wet circuit , precedex kept at 0.4 over shift to keep MALISSA 0 to -1, LS coarse crackles throughout, copious thick zapata secretions, PS 35% 8/5 peep, changed to 5/5 of peep towards end of shift. BP and MAP stable over shift. Infrequent PVC's with stimulation. Generalized edema. Mag replaced . Labs redrawn at 0500, error with 0100 labs. WBC still high DHT had TF running at 55 ml/hr until it was held at 0400, hill in place with yellow urine. LBM 09/24 Pt slept most of shift. PLAN MOVING FORWARD: Neuro Q 4 hr over night Q 2 hr during the daytime I+O Q 2 hr BGL Q 4 hr VS Q 1 hr NPO since 0400 Notify provider for K+ < 2.8 or > 5.5, Mg of SBP goal 90-160 MAP goal > 65 INDIVIDUALIZED FALL PREVENTION INTERVENTIONS: Patient-specific fall risk factors per assessment: [current deficits]: history of falls, 2ndary diagnosis, IV therapy and lines, overestimates/forgets limitations Assistance [level of assistance required for transfers and ambulation]: x2 assistance Supervision [direct monitoring required during toileting and ADLs]: x 2 assistance Surveillance [continuous indirect monitoring]: ICU monitoring Patient-specific fall prevention interventions for sensory deficits provided, if applicable: Problem: Adjustment to Illness (Stroke, Ischemic/Transient Ischemic Attack) Goal: Optimal Coping Outcome: Ongoing (Interventions Implemented as Appropriate) Problem: Bowel Elimination Impaired (Stroke, Ischemic/Transient Ischemic Attack) Goal: Effective Bowel Elimination Outcome: Ongoing (Interventions Implemented as Appropriate) Problem: Cerebral Tissue Perfusion (Stroke, Ischemic/Transient Ischemic Attack) Goal: Optimal Cerebral Tissue Perfusion Outcome: Ongoing (Interventions Implemented as Appropriate) Problem: Cognitive Impairment (Stroke, Ischemic/Transient Ischemic Attack) Goal: Optimal Cognitive Function Outcome: Ongoing (Interventions Implemented as Appropriate) Problem: Communication Impairment (Stroke, Ischemic/Transient Ischemic Attack) Goal: Improved Communication Skills Outcome: Ongoing (Interventions Implemented as Appropriate) Problem: Functional Ability Impaired (Stroke, Ischemic/Transient Ischemic Attack) Goal: Optimal Functional Ability Outcome: Ongoing (Interventions Implemented as Appropriate) Problem: Respiratory Compromise (Stroke, Ischemic/Transient Ischemic Attack) Goal: Effective Oxygenation and Ventilation Outcome: Ongoing (Interventions Implemented as Appropriate) Problem: Sensorimotor Impairment (Stroke, Ischemic/Transient Ischemic Attack) Goal: Improved Sensorimotor Function Outcome: Ongoing (Interventions Implemented as Appropriate) Problem: Eating/Swallowing Impairment (Stroke, Ischemic/Transient Ischemic Attack) Goal: Oral Intake without Aspiration Outcome: Ongoing (Interventions Implemented as Appropriate) Problem: Urinary Elimination Impaired (Stroke, Ischemic/Transient Ischemic Attack) Goal: Effective Urinary Elimination Outcome: Ongoing (Interventions Implemented as Appropriate) Problem: Pain Acute Goal: Acceptable Pain Control and Functional Ability Outcome: Ongoing (Interventions Implemented as Appropriate) Problem: Bleeding (Surgery Nonspecified) Goal: Absence of Bleeding Outcome: Ongoing (Interventions Implemented as Appropriate) Problem: Bowel Motility Impaired (Surgery Nonspecified) Goal: Effective Bowel Elimination Outcome: Ongoing (Interventions Implemented as Appropriate) Problem: Infection (Surgery Nonspecified) Goal: Absence of Infection Signs and Symptoms Outcome: Ongoing (Interventions Implemented as Appropriate) Problem: Ongoing Anesthesia Effects (Surgery Nonspecified) Goal: Anesthesia/Sedation Recovery Outcome: Ongoing (Interventions Implemented as Appropriate) Problem: Pain (Surgery Nonspecified) Goal: Acceptable Pain Control Outcome: Ongoing (Interventions Implemented as Appropriate) Problem: Postoperative Nausea and Vomiting (Surgery Nonspecified) Goal: Nausea and Vomiting Relief Outcome: Ongoing (Interventions Implemented as Appropriate) Problem: Postoperative Urinary Retention (Surgery Nonspecified) Goal: Effective Urinary Elimination Outcome: Ongoing (Interventions Implemented as Appropriate) Problem: Infection Goal: Absence of Infection Signs and Symptoms Outcome: Ongoing (Interventions Implemented as Appropriate) Problem: Communication Impairment (Mechanical Ventilation, Invasive) Goal: Effective Communication Outcome: Ongoing (Interventions Implemented as Appropriate) Problem: Device-Related Complication Risk (Mechanical Ventilation, Invasive) Goal: Optimal Device Function Outcome: Ongoing (Interventions Implemented as Appropriate) Problem: Inability to Wean (Mechanical Ventilation, Invasive) Goal: Mechanical Ventilation Liberation Outcome: Ongoing (Interventions Implemented as Appropriate) Problem: Nutrition Impairment (Mechanical Ventilation, Invasive) Goal: Optimal Nutrition Delivery Outcome: Ongoing (Interventions Implemented as Appropriate) Problem: Skin and Tissue Injury (Mechanical Ventilation, Invasive) Goal: Absence of Device-Related Skin and Tissue Injury Outcome: Ongoing (Interventions Implemented as Appropriate) Problem: Ventilator-Induced Lung Injury (Mechanical Ventilation, Invasive) Goal: Absence of Ventilator-Induced Lung Injury Outcome: Ongoing (Interventions Implemented as Appropriate) Problem: Seizure, Active Management Goal: Absence of Seizure/Seizure-Related Injury Outcome: Ongoing (Interventions Implemented as Appropriate) Problem: Bleeding (Craniotomy/Craniectomy/Cranioplasty) Goal: Absence of Bleeding Outcome: Ongoing (Interventions Implemented as Appropriate) Problem: Cerebral Tissue Perfusion Risk (Craniotomy/Craniectomy/Cranioplasty) Goal: Effective Cerebral Tissue Perfusion Outcome: Ongoing (Interventions Implemented as Appropriate) Problem: Fluid Imbalance (Craniotomy/Craniectomy/Cranioplasty) Goal: Fluid Balance Outcome: Ongoing (Interventions Implemented as Appropriate) Problem: Infection (Craniotomy/Craniectomy/Cranioplasty) Goal: Absence of Infection Signs and Symptoms Outcome: Ongoing (Interventions Implemented as Appropriate) Problem: Ongoing Anesthesia Effects (Craniotomy/Craniectomy/Cranioplasty) Goal: Anesthesia/Sedation Recovery Outcome: Ongoing (Interventions Implemented as Appropriate) Problem: Pain (Craniotomy/Craniectomy/Cranioplasty) Goal: Acceptable Pain Control Outcome: Ongoing (Interventions Implemented as Appropriate) Problem: Postoperative Nausea and Vomiting (Craniotomy/Craniectomy/Cranioplasty) Goal: Nausea and Vomiting Relief Outcome: Ongoing (Interventions Implemented as Appropriate) Problem: Postoperative Urinary Retention (Craniotomy/Craniectomy/Cranioplasty) Goal: Effective Urinary Elimination Outcome: Ongoing (Interventions Implemented as Appropriate) * Plan of Care - Seth Wade RN - 09/23/2024 6:14 PM EDT OUTCOME EVALUATION NOTE: OUTCOME SUMMARY: Overall VS stable this shift, pt in NSR, SBP goal of 90-160mmHg maintained. Pt intubated and sedated on precedex, On PS 5/5, 25% FiO2, minimal thick yellow oral secretions, pt coughing independently.Pt A&Ox4, follows commands with RUE and RLE, withdraws from painful stimulus in LUE and LLE, ptreports yes/no via thumbs up or down. Pt c/o anxiety intermittently, resolves with increase in dex per order. Hill AUOP, no BM this shift, passing flatulence. PLAN MOVING FORWARD: Q2 neuro checks Q1 VS Q4 BG Activity as tolerated CPG GOAL OUTCOME EVALUATION: Problem: Adjustment to Illness (Stroke, Ischemic/Transient Ischemic Attack) Goal: Optimal Coping Outcome: Ongoing (Interventions Implemented as Appropriate) Problem: Bowel Elimination Impaired (Stroke, Ischemic/Transient Ischemic Attack) Goal: Effective Bowel Elimination Outcome: Ongoing (Interventions Implemented as Appropriate) Problem: Cerebral Tissue Perfusion (Stroke, Ischemic/Transient Ischemic Attack) Goal: Optimal Cerebral Tissue Perfusion Outcome: Ongoing (Interventions Implemented as Appropriate) Problem: Cognitive Impairment (Stroke, Ischemic/Transient Ischemic Attack) Goal: Optimal Cognitive Function Outcome: Ongoing (Interventions Implemented as Appropriate) Problem: Communication Impairment (Stroke, Ischemic/Transient Ischemic Attack) Goal: Improved Communication Skills Outcome: Ongoing (Interventions Implemented as Appropriate) Problem: Functional Ability Impaired (Stroke, Ischemic/Transient Ischemic Attack) Goal: Optimal Functional Ability Outcome: Ongoing (Interventions Implemented as Appropriate) Problem: Respiratory Compromise (Stroke, Ischemic/Transient Ischemic Attack) Goal: Effective Oxygenation and Ventilation Outcome: Ongoing (Interventions Implemented as Appropriate) Problem: Sensorimotor Impairment (Stroke, Ischemic/Transient Ischemic Attack) Goal: Improved Sensorimotor Function Outcome: Ongoing (Interventions Implemented as Appropriate) Problem: Eating/Swallowing Impairment (Stroke, Ischemic/Transient Ischemic Attack) Goal: Oral Intake without Aspiration Outcome: Ongoing (Interventions Implemented as Appropriate) Problem: Urinary Elimination Impaired (Stroke, Ischemic/Transient Ischemic Attack) Goal: Effective Urinary Elimination Outcome: Ongoing (Interventions Implemented as Appropriate) Problem: Pain Acute Goal: Acceptable Pain Control and Functional Ability Outcome: Ongoing (Interventions Implemented as Appropriate) Problem: Bleeding (Surgery Nonspecified) Goal: Absence of Bleeding Outcome: Ongoing (Interventions Implemented as Appropriate) Problem: Bowel Motility Impaired (Surgery Nonspecified) Goal: Effective Bowel Elimination Outcome: Ongoing (Interventions Implemented as Appropriate) Problem: Infection (Surgery Nonspecified) Goal: Absence of Infection Signs and Symptoms Outcome: Ongoing (Interventions Implemented as Appropriate) Problem: Ongoing Anesthesia Effects (Surgery Nonspecified) Goal: Anesthesia/Sedation Recovery Outcome: Ongoing (Interventions Implemented as Appropriate) Problem: Pain (Surgery Nonspecified) Goal: Acceptable Pain Control Outcome: Ongoing (Interventions Implemented as Appropriate) Problem: Postoperative Nausea and Vomiting (Surgery Nonspecified) Goal: Nausea and Vomiting Relief Outcome: Ongoing (Interventions Implemented as Appropriate) Problem: Postoperative Urinary Retention (Surgery Nonspecified) Goal: Effective Urinary Elimination Outcome: Ongoing (Interventions Implemented as Appropriate) Problem: Infection Goal: Absence of Infection Signs and Symptoms Outcome: Ongoing (Interventions Implemented as Appropriate) Problem: Communication Impairment (Mechanical Ventilation, Invasive) Goal: Effective Communication Outcome: Ongoing (Interventions Implemented as Appropriate) Problem: Device-Related Complication Risk (Mechanical Ventilation, Invasive) Goal: Optimal Device Function Outcome: Ongoing (Interventions Implemented as Appropriate) Problem: Inability to Wean (Mechanical Ventilation, Invasive) Goal: Mechanical Ventilation Liberation Outcome: Ongoing (Interventions Implemented as Appropriate) Problem: Nutrition Impairment (Mechanical Ventilation, Invasive) Goal: Optimal Nutrition Delivery Outcome: Ongoing (Interventions Implemented as Appropriate) Problem: Skin and Tissue Injury (Mechanical Ventilation, Invasive) Goal: Absence of Device-Related Skin and Tissue Injury Outcome: Ongoing (Interventions Implemented as Appropriate) Problem: Ventilator-Induced Lung Injury (Mechanical Ventilation, Invasive) Goal: Absence of Ventilator-Induced Lung Injury Outcome: Ongoing (Interventions Implemented as Appropriate) Problem: Seizure, Active Management Goal: Absence of Seizure/Seizure-Related Injury Outcome: Ongoing (Interventions Implemented as Appropriate) Problem: Bleeding (Craniotomy/Craniectomy/Cranioplasty) Goal: Absence of Bleeding Outcome: Ongoing (Interventions Implemented as Appropriate) Problem: Cerebral Tissue Perfusion Risk (Craniotomy/Craniectomy/Cranioplasty) Goal: Effective Cerebral Tissue Perfusion Outcome: Ongoing (Interventions Implemented as Appropriate) Problem: Fluid Imbalance (Craniotomy/Craniectomy/Cranioplasty) Goal: Fluid Balance Outcome: Ongoing (Interventions Implemented as Appropriate) Problem: Infection (Craniotomy/Craniectomy/Cranioplasty) Goal: Absence of Infection Signs and Symptoms Outcome: Ongoing (Interventions Implemented as Appropriate) Problem: Ongoing Anesthesia Effects (Craniotomy/Craniectomy/Cranioplasty) Goal: Anesthesia/Sedation Recovery Outcome: Ongoing (Interventions Implemented as Appropriate) Problem: Pain (Craniotomy/Craniectomy/Cranioplasty) Goal: Acceptable Pain Control Outcome: Ongoing (Interventions Implemented as Appropriate) Problem: Postoperative Nausea and Vomiting (Craniotomy/Craniectomy/Cranioplasty) Goal: Nausea and Vomiting Relief Outcome: Ongoing (Interventions Implemented as Appropriate) Problem: Postoperative Urinary Retention (Craniotomy/Craniectomy/Cranioplasty) Goal: Effective Urinary Elimination Outcome: Ongoing (Interventions Implemented as Appropriate) * Care Management - Anupama Pastrana RN - 09/23/2024 3:59 PM EDT OFFICE OF CARE MANAGEMENT PROGRESS NOTE LOS: Hospital Day 7 days Chart reviewed, care reviewed with primary team and at interdisciplinary rounds. Patient continues to meet inpatient level of care related to: intubated, sedated, and Q 1 hour interventions and remains in the hospital related to scheduled watchman procedure 09/16/2024 who subsequently developed a large R ICH requiring intubation for airway protection, heparin reversal with protamine and emergent OR for craniotomy and hematoma evacuation 09/16/2024. . ICU Needs: mechanically ventilated, ICU specific devices / therapies, Q1 hour interventions Functional status prior to admission: Assistive Equipment Home Environment: Others in the home: alone. Current Living Arrangements: home/apartment/condo. Accessibility Concerns: Few stairs at the entrance.. Current Functional Ability: Assistive Equipment DME used at home: cane - straight DME Needed at Discharge: Pending PT / OT Recommendations Last Physical Therapy Recommendation: to be determined pending medical status & functional progression with to be determined Last Occupational Therapy Recommendation: jail facility with to be determined Patient is insured through: Primary Insurance: MEDICARE Payor: MEDICARE / Plan: MEDICARE PART A & B / Product Type: *No Product type* / Secondary Insurance: MEDICAID [place] Prescription Coverage: Yes Preferred Pharmacy: [id number] - [place], [place] - [address] [place] [id number] Plan for discharge is: Pending Hospital Course and PT/OT Recommendations Agency Referrals & Follow-up Care: Based on discussions with the multi-disciplinary healthcare team, the patient would benefit from SNF level of care at discharge. I have met with the residential sales representative (son Don Pollard) to: discuss discharge planning needs. provide the [facility], Office of Care Management letter from the Federal Aid Coordinator pertaining to rehab referrals. provide a letter describing our affiliations within the [facility] and educate about their right to choose where referrals are sent. provide the [facility] Star Quality Rating handout. review the different levels of rehab including SNF, swing, and acute. provide a list of facilities within their preferred geographic area. request that they provide at least three choices for referral. They have requested referrals to: [facility] and [facility] [address] [place] [address] Note routed to a Global Mobility Specialist who will communicate referrals to facilities and provide any required information. Transportation: family or friend will provide Barriers to discharge: Discharge planning Plan going forward: Care Management will continue to follow and assist with discharge planning and coordination of care as indicated. Anticipated Date of Discharge: 09/27/2024 v pending hospital course KIKO Nguyen, RN ACM-RN [facility] manager ed * Plan of Care - Hank Oquendo RN - 09/23/2024 3:03 AM EDT OUTCOME EVALUATION NOTE: OUTCOME SUMMARY: Rt UE/LE 3+, Lft UE 1+, lft LE 2+, A+O x 4, left eye deviates downward, right eye PERRLA, 3mm in both. Patient has some non coordinated movement in LUE and LLE when asked to move limbs, waxed and waned over shift with alertness. PS - wet circuit , precedex kept at 0.2 over shift to keep MALISSA 0 to -1, LS coarse crackles in ENMA and LLL, fine crackles RUL and RLL, copious thick zapata secretions, PS 40% 8/5 peep. BP and MAP stable over shift. Intermittent PVC's throughout shift and sinus tach ( 136 bmp) at 0345. Provider advised and Mg and K+ replacement added at 5:30 for K+ 3.9, Mg 0.85. Generalized edema. DHT had TF running at 55 ml/hr until it was held at 0400, hill in place with yellow urine. LBM 09/23/2024 - moderate loose stool Pt got very little sleep overnight, nodded yes to anxious r/t being alone in the room. PLAN MOVING FORWARD: Neuro Q 4 hr over night Q 2 hr during the daytime I+O Q 2 hr BGL Q 4 hr VS Q 1 hr NPO since 0400 Notify provider for K+ < 2.8 or > 5.5, Mg of SBP goal 90-160 MAP goal > 65 INDIVIDUALIZED FALL PREVENTION INTERVENTIONS: Patient-specific fall risk factors per assessment: [current deficits]: history of falls, 2ndary diagnosis, IV therapy and lines, overestimates/forgets limitations Assistance [level of assistance required for transfers and ambulation]: x2 assistance Supervision [direct monitoring required during toileting and ADLs]: x 2 assistance Surveillance [continuous indirect monitoring]: ICU monitoring Patient-specific fall prevention interventions for sensory deficits provided, if applicable: CARE PLAN GOAL OUTCOME EVALUATION: Problem: Adjustment to Illness (Stroke, Ischemic/Transient Ischemic Attack) Goal: Optimal Coping Outcome: Ongoing (Interventions Implemented as Appropriate) Problem: Bowel Elimination Impaired (Stroke, Ischemic/Transient Ischemic Attack) Goal: Effective Bowel Elimination Outcome: Ongoing (Interventions Implemented as Appropriate) Problem: Cerebral Tissue Perfusion (Stroke, Ischemic/Transient Ischemic Attack) Goal: Optimal Cerebral Tissue Perfusion Outcome: Ongoing (Interventions Implemented as Appropriate) Problem: Cognitive Impairment (Stroke, Ischemic/Transient Ischemic Attack) Goal: Optimal Cognitive Function Outcome: Ongoing (Interventions Implemented as Appropriate) Problem: Communication Impairment (Stroke, Ischemic/Transient Ischemic Attack) Goal: Improved Communication Skills Outcome: Ongoing (Interventions Implemented as Appropriate) Problem: Functional Ability Impaired (Stroke, Ischemic/Transient Ischemic Attack) Goal: Optimal Functional Ability Outcome: Ongoing (Interventions Implemented as Appropriate) Problem: Respiratory Compromise (Stroke, Ischemic/Transient Ischemic Attack) Goal: Effective Oxygenation and Ventilation Outcome: Ongoing (Interventions Implemented as Appropriate) Problem: Sensorimotor Impairment (Stroke, Ischemic/Transient Ischemic Attack) Goal: Improved Sensorimotor Function Outcome: Ongoing (Interventions Implemented as Appropriate) Problem: Eating/Swallowing Impairment (Stroke, Ischemic/Transient Ischemic Attack) Goal: Oral Intake without Aspiration Outcome: Ongoing (Interventions Implemented as Appropriate) Problem: Urinary Elimination Impaired (Stroke, Ischemic/Transient Ischemic Attack) Goal: Effective Urinary Elimination Outcome: Ongoing (Interventions Implemented as Appropriate) Problem: Pain Acute Goal: Acceptable Pain Control and Functional Ability Outcome: Ongoing (Interventions Implemented as Appropriate) Problem: Bleeding (Surgery Nonspecified) Goal: Absence of Bleeding Outcome: Ongoing (Interventions Implemented as Appropriate) Problem: Bowel Motility Impaired (Surgery Nonspecified) Goal: Effective Bowel Elimination Outcome: Ongoing (Interventions Implemented as Appropriate) Problem: Infection (Surgery Nonspecified) Goal: Absence of Infection Signs and Symptoms Outcome: Ongoing (Interventions Implemented as Appropriate) Problem: Ongoing Anesthesia Effects (Surgery Nonspecified) Goal: Anesthesia/Sedation Recovery Outcome: Ongoing (Interventions Implemented as Appropriate) Problem: Pain (Surgery Nonspecified) Goal: Acceptable Pain Control Outcome: Ongoing (Interventions Implemented as Appropriate) Problem: Postoperative Nausea and Vomiting (Surgery Nonspecified) Goal: Nausea and Vomiting Relief Outcome: Ongoing (Interventions Implemented as Appropriate) Problem: Postoperative Urinary Retention (Surgery Nonspecified) Goal: Effective Urinary Elimination Outcome: Ongoing (Interventions Implemented as Appropriate) Problem: Infection Goal: Absence of Infection Signs and Symptoms Outcome: Ongoing (Interventions Implemented as Appropriate) Problem: Communication Impairment (Mechanical Ventilation, Invasive) Goal: Effective Communication Outcome: Ongoing (Interventions Implemented as Appropriate) Problem: Device-Related Complication Risk (Mechanical Ventilation, Invasive) Goal: Optimal Device Function Outcome: Ongoing (Interventions Implemented as Appropriate) Problem: Inability to Wean (Mechanical Ventilation, Invasive) Goal: Mechanical Ventilation Liberation Outcome: Ongoing (Interventions Implemented as Appropriate) Problem: Nutrition Impairment (Mechanical Ventilation, Invasive) Goal: Optimal Nutrition Delivery Outcome: Ongoing (Interventions Implemented as Appropriate) Problem: Skin and Tissue Injury (Mechanical Ventilation, Invasive) Goal: Absence of Device-Related Skin and Tissue Injury Outcome: Ongoing (Interventions Implemented as Appropriate) Problem: Ventilator-Induced Lung Injury (Mechanical Ventilation, Invasive) Goal: Absence of Ventilator-Induced Lung Injury Outcome: Ongoing (Interventions Implemented as Appropriate) Problem: Seizure, Active Management Goal: Absence of Seizure/Seizure-Related Injury Outcome: Ongoing (Interventions Implemented as Appropriate) Problem: Bleeding (Craniotomy/Craniectomy/Cranioplasty) Goal: Absence of Bleeding Outcome: Ongoing (Interventions Implemented as Appropriate) Problem: Cerebral Tissue Perfusion Risk (Craniotomy/Craniectomy/Cranioplasty) Goal: Effective Cerebral Tissue Perfusion Outcome: Ongoing (Interventions Implemented as Appropriate) Problem: Fluid Imbalance (Craniotomy/Craniectomy/Cranioplasty) Goal: Fluid Balance Outcome: Ongoing (Interventions Implemented as Appropriate) Problem: Infection (Craniotomy/Craniectomy/Cranioplasty) Goal: Absence of Infection Signs and Symptoms Outcome: Ongoing (Interventions Implemented as Appropriate) Problem: Ongoing Anesthesia Effects (Craniotomy/Craniectomy/Cranioplasty) Goal: Anesthesia/Sedation Recovery Outcome: Ongoing (Interventions Implemented as Appropriate) Problem: Pain (Craniotomy/Craniectomy/Cranioplasty) Goal: Acceptable Pain Control Outcome: Ongoing (Interventions Implemented as Appropriate) Problem: Postoperative Nausea and Vomiting (Craniotomy/Craniectomy/Cranioplasty) Goal: Nausea and Vomiting Relief Outcome: Ongoing (Interventions Implemented as Appropriate) Problem: Postoperative Urinary Retention (Craniotomy/Craniectomy/Cranioplasty) Goal: Effective Urinary Elimination Outcome: Ongoing (Interventions Implemented as Appropriate) * Plan of Care - Seth Wade RN - 09/22/2024 6:15 PM EDT OUTCOME EVALUATION NOTE: OUTCOME SUMMARY: Pt intubated, on PS, 8/5, 35% FiO2, minimal oral yellow secretions, strong independent cough. Pt A&Ox4, follows command with RUE and RLE, LUE and LLE withdraw from painful stimuli, intermittentlyLLE follows commands. Pt in NSR, SBP goal of 90-160 maintained. Hill AUOP, no BM this shift. PLAN MOVING FORWARD: Q2 neuro checks Q1 VS Q4 BG Activity as tolerated Extubate 09/23? CPG GOAL OUTCOME EVALUATION: Problem: Adjustment to Illness (Stroke, Ischemic/Transient Ischemic Attack) Goal: Optimal Coping Outcome: Ongoing (Interventions Implemented as Appropriate) Problem: Bowel Elimination Impaired (Stroke, Ischemic/Transient Ischemic Attack) Goal: Effective Bowel Elimination Outcome: Ongoing (Interventions Implemented as Appropriate) Problem: Cerebral Tissue Perfusion (Stroke, Ischemic/Transient Ischemic Attack) Goal: Optimal Cerebral Tissue Perfusion Outcome: Ongoing (Interventions Implemented as Appropriate) Problem: Cognitive Impairment (Stroke, Ischemic/Transient Ischemic Attack) Goal: Optimal Cognitive Function Outcome: Ongoing (Interventions Implemented as Appropriate) Problem: Communication Impairment (Stroke, Ischemic/Transient Ischemic Attack) Goal: Improved Communication Skills Outcome: Ongoing (Interventions Implemented as Appropriate) Problem: Functional Ability Impaired (Stroke, Ischemic/Transient Ischemic Attack) Goal: Optimal Functional Ability Outcome: Ongoing (Interventions Implemented as Appropriate) Problem: Respiratory Compromise (Stroke, Ischemic/Transient Ischemic Attack) Goal: Effective Oxygenation and Ventilation Outcome: Ongoing (Interventions Implemented as Appropriate) Problem: Sensorimotor Impairment (Stroke, Ischemic/Transient Ischemic Attack) Goal: Improved Sensorimotor Function Outcome: Ongoing (Interventions Implemented as Appropriate) Problem: Eating/Swallowing Impairment (Stroke, Ischemic/Transient Ischemic Attack) Goal: Oral Intake without Aspiration Outcome: Ongoing (Interventions Implemented as Appropriate) Problem: Urinary Elimination Impaired (Stroke, Ischemic/Transient Ischemic Attack) Goal: Effective Urinary Elimination Outcome: Ongoing (Interventions Implemented as Appropriate) Problem: Pain Acute Goal: Acceptable Pain Control and Functional Ability Outcome: Ongoing (Interventions Implemented as Appropriate) Problem: Bleeding (Surgery Nonspecified) Goal: Absence of Bleeding Outcome: Ongoing (Interventions Implemented as Appropriate) Problem: Bowel Motility Impaired (Surgery Nonspecified) Goal: Effective Bowel Elimination Outcome: Ongoing (Interventions Implemented as Appropriate) Problem: Infection (Surgery Nonspecified) Goal: Absence of Infection Signs and Symptoms Outcome: Ongoing (Interventions Implemented as Appropriate) Problem: Ongoing Anesthesia Effects (Surgery Nonspecified) Goal: Anesthesia/Sedation Recovery Outcome: Ongoing (Interventions Implemented as Appropriate) Problem: Pain (Surgery Nonspecified) Goal: Acceptable Pain Control Outcome: Ongoing (Interventions Implemented as Appropriate) Problem: Postoperative Nausea and Vomiting (Surgery Nonspecified) Goal: Nausea and Vomiting Relief Outcome: Ongoing (Interventions Implemented as Appropriate) Problem: Postoperative Urinary Retention (Surgery Nonspecified) Goal: Effective Urinary Elimination Outcome: Ongoing (Interventions Implemented as Appropriate) Problem: Infection Goal: Absence of Infection Signs and Symptoms Outcome: Ongoing (Interventions Implemented as Appropriate) Problem: Communication Impairment (Mechanical Ventilation, Invasive) Goal: Effective Communication Outcome: Ongoing (Interventions Implemented as Appropriate) Problem: Device-Related Complication Risk (Mechanical Ventilation, Invasive) Goal: Optimal Device Function Outcome: Ongoing (Interventions Implemented as Appropriate) Problem: Inability to Wean (Mechanical Ventilation, Invasive) Goal: Mechanical Ventilation Liberation Outcome: Ongoing (Interventions Implemented as Appropriate) Problem: Nutrition Impairment (Mechanical Ventilation, Invasive) Goal: Optimal Nutrition Delivery Outcome: Ongoing (Interventions Implemented as Appropriate) Problem: Skin and Tissue Injury (Mechanical Ventilation, Invasive) Goal: Absence of Device-Related Skin and Tissue Injury Outcome: Ongoing (Interventions Implemented as Appropriate) Problem: Ventilator-Induced Lung Injury (Mechanical Ventilation, Invasive) Goal: Absence of Ventilator-Induced Lung Injury Outcome: Ongoing (Interventions Implemented as Appropriate) Problem: Seizure, Active Management Goal: Absence of Seizure/Seizure-Related Injury Outcome: Ongoing (Interventions Implemented as Appropriate) Problem: Bleeding (Craniotomy/Craniectomy/Cranioplasty) Goal: Absence of Bleeding Outcome: Ongoing (Interventions Implemented as Appropriate) Problem: Cerebral Tissue Perfusion Risk (Craniotomy/Craniectomy/Cranioplasty) Goal: Effective Cerebral Tissue Perfusion Outcome: Ongoing (Interventions Implemented as Appropriate) Problem: Fluid Imbalance (Craniotomy/Craniectomy/Cranioplasty) Goal: Fluid Balance Outcome: Ongoing (Interventions Implemented as Appropriate) Problem: Infection (Craniotomy/Craniectomy/Cranioplasty) Goal: Absence of Infection Signs and Symptoms Outcome: Ongoing (Interventions Implemented as Appropriate) Problem: Ongoing Anesthesia Effects (Craniotomy/Craniectomy/Cranioplasty) Goal: Anesthesia/Sedation Recovery Outcome: Ongoing (Interventions Implemented as Appropriate) Problem: Pain (Craniotomy/Craniectomy/Cranioplasty) Goal: Acceptable Pain Control Outcome: Ongoing (Interventions Implemented as Appropriate) Problem: Postoperative Nausea and Vomiting (Craniotomy/Craniectomy/Cranioplasty) Goal: Nausea and Vomiting Relief Outcome: Ongoing (Interventions Implemented as Appropriate) Problem: Postoperative Urinary Retention (Craniotomy/Craniectomy/Cranioplasty) Goal: Effective Urinary Elimination Outcome: Ongoing (Interventions Implemented as Appropriate) * Initial Assessments - Diana Lucas OT - 09/22/2024 11:54 AM EDT Occupational Therapy Evaluation Patient profile: Lucero Bruno is a 74 y.o. female admitted on 09/16/2024. 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 Presents to OT for evaluation of functional activity. Past medical history: Past Medical History: Diagnosis Date Irregular heart beat Obstructive sleep apnea Past surgical history: Past Surgical History: Procedure Laterality Date PRG ECHOENCEPHALOGRAPH REAL TIME Right 09/16/2024 ULTRASOUND USE (WRVU 0.63) performed by Sushila Espinal MD at [facility] OR PRO LAPAROSCOPY W TOT HYSTERECTUTERUS <=250 GRAM W TUBE/OVARY N/A 04/23/2024 LAPAROSCOPY, TOTAL HYST, UTERUS<250GMS, REM TUBE &/OR OVARY (WRVU 15) performed by Xiomara Burkett MD at [facility] OR PRO OPEN SKULL EVAC INTRACEREBR BLOOD Right 09/16/2024 @CRANI-HEMATOMA EVACUATION, INTRACEREBRAL (WRVU 28.09) performed by Sushila Espinal MD at [facility] OR Subjective: Pt received in bed without visitors present. Pt ok for evaluation this date per RN. Pt A&Ox2 and VSS. Pt intubated and on 35% FiO2 8. Handoff given to RN including pt's location, pain, and pertinent information at cessation of session. Pain: No signs/symptoms of pain Social History: per chart review Home Setup: Pt lives in a multi story home with all needs met on one level. Pt has a tub shower with grab bars. Social support: Pt lives alone. Pt has a significant other and a son in the area. DME: Cane Tub grab bar Baseline ADL/Mobility: Pt was independent at baseline with use of cane. Precautions/Special Considerations: Falls, ETT to vent, RUE soft wrist restraints, NPO, NGT, hill,AAT, SBP 90-160, full code Patient Lines/Drains/Airways Status Active Tubes/Lines/Drains Name Placement date Placement time Site Days Percutaneous Central Line 09/17/24 1405 Triple Lumen subclavian vein, right 09/17/24 1405 -- 5 PIV 09/16/24 1305 1 in length;18 gauge median cubital vein (antecubital fossa), right 09/16/24 1305-- 6 PIV 09/16/24 2216 20 gauge median cubital vein (antecubital fossa), left 09/16/24 2216 -- 6 Urethral Catheter 09/16/24 latex 14 5 10 09/16/24 -- -- 6 Naso/Oral Tube 09/18/24 1229 small bore;nonweighted right nostril 09/18/24 1229 right nostril 4 ETT Airway 09/21/24 1251 09/21/24 1251 -- 1 Activity Orders: Activity Orders (From admission to next 72h) Start Ordered Unscheduled Activity as tolerated PRN 09/16/242204 Unscheduled Up with assistance PRN 09/16/242204 Objective: Seen today for OT evaluation and education Vital signs/endurance: O2 Device: ETT to vent Settings: 35% Fio2, 8 Peep, 5 PS above peep SpO2 HR BP Pre-activity 95% 71bpm 1110/55(70) After Activity 95% 80bpm 127/57(77) Cognitive Status/Behavior Behavior / Mood: cooperative and lethargic Alert and oriented to: person and place Follows commands: 1 step and 75% of the time Attention: WFL Safety awareness: decreased insight into deficits, impulsive RUE in soft wrist restraints Vision & Perception: corrective lenses 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 Communication: communicated through thumbs up/down and nodding head Hearing: Not assessed; intact to voice Upper Extremity Assessment: Fine Motor Skills/Coordination: RUE WFL, LUE impaired Upper Extremity Impairments: LUE weakness Upper Extremity Sensation: LUE with altered sensation compared to RUE Range of Motion: RUE WFL, LUE Full PROM, no AROM Upper Extremity Strength: RUE 3/5, LUE ~1/5 Activities of Daily Living: Hygiene/grooming: mod A rub in lotion on BUE Upper Body Dressing: max A Lower Body Dressing: max A Functional Mobility: Supine to sit: bed chair Balance: Static seated balance: Poor, propped with pillows on L side d/t L lateral lean Education: patient have been educated on Role of occupational therapy/rehabilitation, Positioning, Safety, and Recommendations and needs reinforcement. Assessment: Lucero Bruno presents with the following performance skill deficits and client factors: decreased activity tolerance, decreased flexibility / ROM, decreased strength, decreased sitting / standing balance, hemodynamic instability, visual deficits, cognitive deficits, sensory deficits, communicat ion deficits, decreased motor control, decreased postural control, deconditioning, precautions / bracing, compromised mobility status, coping, and skin integrity. These performance deficits have led to activity limitations and participation restrictions in the following areas of occupation: dressing, bathing, grooming, toileting, self-feeding, transfers / mobility, rest / sleep, home management, work, leisure, driving, community mobility, communication, and social participating. Pt seen for OT evaluation this date. Pt able to communicate using gestures and nodding. Pt with L sided deficits and L gaze preference. Pt followed most commands well this date. Pt will benefit from continued acute OT to address performance deficits and maximize participation and independence with activities of daily living while in hospital and would benefit from a low intensity inpatient rehab stay prior to d/c home. Will continue to assess needs. OT will follow. Equipment Needs Upon Discharge (OT): to be determined Anticipated Discharge Disposition (OT): jail facility Other Recommendations: EPM Level 1: HOB >30 degrees at tolerated, PROM/AROM Utilize upright chair position using bed features or transfer to recliner chair as appropriate withlift Frequent orientation verbally & visually with calendars/clocks/whiteboard Facilitate a normal sleep-wake cycle (minimize nighttime distractions when possible, lights on/shades up during the day) Provide brief, clear instructions and directions from one source at a time Reduce extraneous stimulation Encourage use of coping & calming strategies Other Recommendations: No other consults recommended at this time. Goals: To be achieved by 10/06/24. Pt will be consistently A&Ox4 and CAM (-) Pt will complete UBD with min A using compensatory strategies/LRAD prn. Pt will complete UB bathing with min A using compensatory strategies/LRAD prn. Pt will complete 2-3 grooming tasks at in supported sitting with set up A. Pt will complete BUE HEP to improve functional use of ADLs Plan: OT: Therapy Frequency (OT): 2-3 times/wk Total Minutes, Occupational Therapy: 18 ([id number]) Planned OT interventions: Role of occupational therapy/rehabilitation, Transfers, Assistive device/technique, Adaptive equipment training, ADL, Exercise, Breathing exercises, Positioning, Safety, Precautions/Protocol, Functional Mobility, Activity pacing/Energy conservation, Home Program, Home Management, Balance, Recommendations, Family training, and Discharge planning. 2017 OT Evaluation Code Rationale: Diagnosis & Pertinent Co-Morbidities affecting Plan of Care: see PMHx Occupational Profile & Client History: Brief Expanded Extensive x Assessment of Occupational Performance: 1-3 performance deficits 3-5 performance deficits 5 + performance deficits x Clinical Decision Making: Low Moderate High x Clinical decision making of moderate complexity using standardized patient assessment instrument and measurable assessment of functional outcome. Additional treatment provided: None, initial evaluation only. Diana Lucas, CHIDIR/L They/Them Occupational Therapy Rehabilitation Department Pager # [phone] * Care Management - Xenia Crane RN - 09/22/2024 11:00 AM EDT OFFICE OF CARE MANAGEMENT PROGRESS NOTE LOS: Hospital Day 6 days Chart reviewed, care reviewed with primary team and at interdisciplinary rounds. 09/16/24, Dr. Espinal: R craniotomy for IPH evacuation. 09/21/2024 Extubated then re-intubated ( wean sedation and extubate when ready ) Likely not today AUBREY out; post CTH this morning done . Neuro this morning is stable Medical Decision Maker: Self Financial Decision Maker: Self Functional status prior to admission: Assistive Equipment Home Environment: Others in the home: alone. Current Living Arrangements: home/apartment/condo. Accessibility Concerns: Few stairs at the entrance.. Current Functional Ability: Assistive Equipment DME used at home: cane - straight DME Needed at Discharge: *expected that the patient may need additional DME but further assessment is needed Patient is insured through: Primary Insurance: MEDICARE Payor: MEDICARE / Plan: MEDICARE PART A & B / Product Type: *No Product type* / Secondary Insurance: MEDICAID [place] Plan for discharge is: Pending Hospital Course and PT/OT Recommendations Outpatient Agency/Support Group Needs: Clinic(s) Agency Choices: [facility] clinic Agency Referrals: Not Applicable Transportation: family or friend will provide Barriers to discharge: Global: Discharge planning Global Comment: the patient may benefit from an inpatient rehab stay prior to returning home. ICU Needs: mechanically ventilated, ICU specific devices / therapies, Q1 hour interventions Plan: Patient is not medically ready related to: Being intubated . Plan going forward is: Wean sedation and extubate when able CM to watch for rehab / VNA needs going forward. Appreciate PT/OT recommendations as well . Anticipated Date of Discharge: 09/27/2024 Office of Care Management Float / multimedia journalist industrial therapist [email or web address] Pager #[phone] * Plan of Care - Seth Wade RN - 09/21/2024 6:35 PM EDT OUTCOME EVALUATION NOTE: OUTCOME SUMMARY: Pt intubated, on PS, 07/01, 40% FiO2, copious thick secretions. Pt A&Ox4, follows command with RUE and RLE, LUE and LLE withdraw from painful stimuli. Pt in NSR, SBP goal of 90-160 maintained. Sergio GIBBS, BMx1 this shift. EVENTS: ~1200 pt extubated and reintubated ~1230 d/t labored breathing ~1330- right parietal drain removed per Neurosurg team PLAN MOVING FORWARD: Q2 I&Os Q2 neuro checks Q1 VS Activity as tolerated Q4 BG 09/22 CT 0400 CPG GOAL OUTCOME EVALUATION: Problem: Adjustment to Illness (Stroke, Ischemic/Transient Ischemic Attack) Goal: Optimal Coping Outcome: Ongoing (Interventions Implemented as Appropriate) Problem: Bowel Elimination Impaired (Stroke, Ischemic/Transient Ischemic Attack) Goal: Effective Bowel Elimination Outcome: Ongoing (Interventions Implemented as Appropriate) Problem: Cerebral Tissue Perfusion (Stroke, Ischemic/Transient Ischemic Attack) Goal: Optimal Cerebral Tissue Perfusion Outcome: Ongoing (Interventions Implemented as Appropriate) Problem: Cognitive Impairment (Stroke, Ischemic/Transient Ischemic Attack) Goal: Optimal Cognitive Function Outcome: Ongoing (Interventions Implemented as Appropriate) Problem: Communication Impairment (Stroke, Ischemic/Transient Ischemic Attack) Goal: Improved Communication Skills Outcome: Ongoing (Interventions Implemented as Appropriate) Problem: Functional Ability Impaired (Stroke, Ischemic/Transient Ischemic Attack) Goal: Optimal Functional Ability Outcome: Ongoing (Interventions Implemented as Appropriate) Problem: Respiratory Compromise (Stroke, Ischemic/Transient Ischemic Attack) Goal: Effective Oxygenation and Ventilation Outcome: Ongoing (Interventions Implemented as Appropriate) Problem: Sensorimotor Impairment (Stroke, Ischemic/Transient Ischemic Attack) Goal: Improved Sensorimotor Function Outcome: Ongoing (Interventions Implemented as Appropriate) Problem: Eating/Swallowing Impairment (Stroke, Ischemic/Transient Ischemic Attack) Goal: Oral Intake without Aspiration Outcome: Ongoing (Interventions Implemented as Appropriate) Problem: Urinary Elimination Impaired (Stroke, Ischemic/Transient Ischemic Attack) Goal: Effective Urinary Elimination Outcome: Ongoing (Interventions Implemented as Appropriate) Problem: Pain Acute Goal: Acceptable Pain Control and Functional Ability Outcome: Ongoing (Interventions Implemented as Appropriate) Problem: Bleeding (Surgery Nonspecified) Goal: Absence of Bleeding Outcome: Ongoing (Interventions Implemented as Appropriate) Problem: Bowel Motility Impaired (Surgery Nonspecified) Goal: Effective Bowel Elimination Outcome: Ongoing (Interventions Implemented as Appropriate) Problem: Infection (Surgery Nonspecified) Goal: Absence of Infection Signs and Symptoms Outcome: Ongoing (Interventions Implemented as Appropriate) Problem: Ongoing Anesthesia Effects (Surgery Nonspecified) Goal: Anesthesia/Sedation Recovery Outcome: Ongoing (Interventions Implemented as Appropriate) Problem: Pain (Surgery Nonspecified) Goal: Acceptable Pain Control Outcome: Ongoing (Interventions Implemented as Appropriate) Problem: Postoperative Nausea and Vomiting (Surgery Nonspecified) Goal: Nausea and Vomiting Relief Outcome: Ongoing (Interventions Implemented as Appropriate) Problem: Postoperative Urinary Retention (Surgery Nonspecified) Goal: Effective Urinary Elimination Outcome: Ongoing (Interventions Implemented as Appropriate) Problem: Infection Goal: Absence of Infection Signs and Symptoms Outcome: Ongoing (Interventions Implemented as Appropriate) Problem: Communication Impairment (Mechanical Ventilation, Invasive) Goal: Effective Communication Outcome: Ongoing (Interventions Implemented as Appropriate) Problem: Device-Related Complication Risk (Mechanical Ventilation, Invasive) Goal: Optimal Device Function Outcome: Ongoing (Interventions Implemented as Appropriate) Problem: Inability to Wean (Mechanical Ventilation, Invasive) Goal: Mechanical Ventilation Liberation Outcome: Ongoing (Interventions Implemented as Appropriate) Problem: Nutrition Impairment (Mechanical Ventilation, Invasive) Goal: Optimal Nutrition Delivery Outcome: Ongoing (Interventions Implemented as Appropriate) Problem: Skin and Tissue Injury (Mechanical Ventilation, Invasive) Goal: Absence of Device-Related Skin and Tissue Injury Outcome: Ongoing (Interventions Implemented as Appropriate) Problem: Ventilator-Induced Lung Injury (Mechanical Ventilation, Invasive) Goal: Absence of Ventilator-Induced Lung Injury Outcome: Ongoing (Interventions Implemented as Appropriate) Problem: Seizure, Active Management Goal: Absence of Seizure/Seizure-Related Injury Outcome: Ongoing (Interventions Implemented as Appropriate) Problem: Bleeding (Craniotomy/Craniectomy/Cranioplasty) Goal: Absence of Bleeding Outcome: Ongoing (Interventions Implemented as Appropriate) Problem: Cerebral Tissue Perfusion Risk (Craniotomy/Craniectomy/Cranioplasty) Goal: Effective Cerebral Tissue Perfusion Outcome: Ongoing (Interventions Implemented as Appropriate) Problem: Fluid Imbalance (Craniotomy/Craniectomy/Cranioplasty) Goal: Fluid Balance Outcome: Ongoing (Interventions Implemented as Appropriate) Problem: Infection (Craniotomy/Craniectomy/Cranioplasty) Goal: Absence of Infection Signs and Symptoms Outcome: Ongoing (Interventions Implemented as Appropriate) Problem: Ongoing Anesthesia Effects (Craniotomy/Craniectomy/Cranioplasty) Goal: Anesthesia/Sedation Recovery Outcome: Ongoing (Interventions Implemented as Appropriate) Problem: Pain (Craniotomy/Craniectomy/Cranioplasty) Goal: Acceptable Pain Control Outcome: Ongoing (Interventions Implemented as Appropriate) Problem: Postoperative Nausea and Vomiting (Craniotomy/Craniectomy/Cranioplasty) Goal: Nausea and Vomiting Relief Outcome: Ongoing (Interventions Implemented as Appropriate) Problem: Postoperative Urinary Retention (Craniotomy/Craniectomy/Cranioplasty) Goal: Effective Urinary Elimination Outcome: Ongoing (Interventions Implemented as Appropriate) * Care Management - Stephanie Louise RN - 09/21/2024 3:03 PM EDT OFFICE OF CARE MANAGEMENT PROGRESS NOTE LOS: Hospital Day 5 days Chart reviewed, care reviewed with primary team and at interdisciplinary rounds.Patient had a RightICH, requiring intubation for airway protection, heparin reversal with protamine and emergent OR for craniotomy and hematoma evacuation on 09/16/2025 Medical Decision Maker: Self Financial Decision Maker: Self Functional status prior to admission: Assistive Equipment Home Environment: Others in the home: alone. Current Living Arrangements: home/apartment/condo. Accessibility Concerns: Few stairs at the entrance.. Current Functional Ability: Assistive Equipment DME used at home: cane - straight DME Needed at Discharge: *expected that the patient may need additional DME but further assessment is needed Patient is insured through: Primary Insurance: MEDICARE Payor: MEDICARE / Plan: MEDICARE PART A & B / Product Type: *No Product type* / Secondary Insurance: MEDICAID [place] Physical Therapy Recommendation: with Last Occupational Therapy Recommendation: with Plan for discharge is: Pending Hospital Course and PT/OT Recommendations Outpatient Agency/Support Group Needs: Clinic(s) Agency Choices: [facility] clinic Agency Referrals: [facility] services- will send a referral once patient is medically ready. Patient still in NCCU on pressure support ventilator mode. Transportation: family or friend will provide Barriers to discharge: Global: Discharge planning Global Comment: the patient may benefit from an inpatient rehab stay prior to returning home. ICU Needs: mechanically ventilated, ICU specific devices / therapies, Q1 hour interventions Plan: Patient is not medically ready related to: NCCU status and connected to a ventilator on PSV mode. Plan going forward is: continue to assist, advocate, support and coordinate/facilate services as indicated Anticipated Date of Discharge: 09/27/2024 Office of Care Management multimedia journalist manager ed Stephanie Louise MSN RN [email or web address] [phone] pager [phone] * Plan of Care - Vernon Leos RN - 09/21/2024 1:53 AM EDT Summary of hospitalization: Lucero Bruno is a 74 y.o. 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 who presented to [facility] today for watchman procedure subsequently developing a large R ICH requiring intubation for airway protection, heparin reversal with protamine and emergent OR for craniotomy and hematoma evacuation. 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 05/06/2024 Past Medical History: Diagnosis Date Irregular heart beat Obstructive sleep apnea Past Surgical History: Procedure Laterality Date PRG ECHOENCEPHALOGRAPH REAL TIME Right 09/16/2024 ULTRASOUND USE (WRVU 0.63) performed by Sushila Espinal MD at [facility] OR PRO LAPAROSCOPY W TOT HYSTERECTUTERUS <=250 GRAM W TUBE/OVARY N/A 04/23/2024 LAPAROSCOPY, TOTAL HYST, UTERUS<250GMS, REM TUBE &/OR OVARY (WRVU 15) performed by Xiomara Burkett MD at [facility] OR PRO OPEN SKULL EVAC INTRACEREBR BLOOD Right 09/16/2024 @CRANI-HEMATOMA EVACUATION, INTRACEREBRAL (WRVU 28.09) performed by Sushila Espinal MD at [facility] OR Status: Stable Subjective/Objective: gesturing to have ETT removed Assessment: see DocFlow for details, otherwise significant highlights include the following: N/pain: [id number] (E4V1M6). Anxiolytic gtt titrated to RASS 0Neuro checks q2h. Able to express needs by gesturing/thumbs up/down. Sz3-4/PERRLA. L eye deviated downward. +cough/gag/corneals. 3/5 RUE/RLE. 1/5 LUE/LLE to nailbed pressure. Denies pain. Decadron course ongoing d/t edematous tongue, improving. CTH completed, awaiting result. P: 8ETT22 @ teeth, PS setting on 03/28 at 31% pulling 410 VT, PIP <20. LSCTAL, inline suctioning thick malodorous yellow secretions, oral clear. VAP prevention adhered. Aggressive pulmonary toileting ongoing. C: Continued ICU monitoring. SBP goals <160 with prn labetalol 10mg given x1. NSR/SB (50) GI: Peptamen VHP via bridled R nare DHT at goal 55mL/hr, tolerating well. Held at 0230 given potential extubation. Abd soft, NTND. Active BS. LBM:09/20 : Hill maintained, strict I/O's, see DocFlow for details. Goal euvolemia. H: daily labs, no repletion needed Skin/PV: Heels offloaded/sacral mepilex in place. SCDs donned whilst in bed. Scant periorbital edema, extremities elevated. +rp/pp. Crani site well approx with stacey, scant dried old blood, GRINDER AND PLATER. Endo: FSBS q4h, coverage via standing/SSI, see eMAR. ID: Afebrile. Abx/virals: none. Noting uptrending WBC, LD: see Avatar. SG drain with minimum sanguinous output (<20mL over 12h) Act: T&R q2h whilst in bed, pROM LUE/LLE q2h. Social: no callers/visitors overnight. Plan/Recommendation: CTH result pending Order PT/OT/C[employer] ED[employer]IMMER Potential extubation today Monitor for signs of infection Continued interdisciplinary interventions in alterations in N/P/GI//Sk/ID Medication education Notify team of acute changes Maintain safety Emotional support Infection prevention Problem: Adjustment to Illness (Stroke, Ischemic/Transient Ischemic Attack) Goal: Optimal Coping Outcome: Ongoing (Interventions Implemented as Appropriate) Problem: Bowel Elimination Impaired (Stroke, Ischemic/Transient Ischemic Attack) Goal: Effective Bowel Elimination Outcome: Ongoing (Interventions Implemented as Appropriate) Problem: Cerebral Tissue Perfusion (Stroke, Ischemic/Transient Ischemic Attack) Goal: Optimal Cerebral Tissue Perfusion Outcome: Ongoing (Interventions Implemented as Appropriate) Problem: Cognitive Impairment (Stroke, Ischemic/Transient Ischemic Attack) Goal: Optimal Cognitive Function Outcome: Ongoing (Interventions Implemented as Appropriate) Problem: Communication Impairment (Stroke, Ischemic/Transient Ischemic Attack) Goal: Improved Communication Skills Outcome: Ongoing (Interventions Implemented as Appropriate) Problem: Functional Ability Impaired (Stroke, Ischemic/Transient Ischemic Attack) Goal: Optimal Functional Ability Outcome: Ongoing (Interventions Implemented as Appropriate) Problem: Respiratory Compromise (Stroke, Ischemic/Transient Ischemic Attack) Goal: Effective Oxygenation and Ventilation Outcome: Ongoing (Interventions Implemented as Appropriate) Problem: Sensorimotor Impairment (Stroke, Ischemic/Transient Ischemic Attack) Goal: Improved Sensorimotor Function Outcome: Ongoing (Interventions Implemented as Appropriate) Problem: Eating/Swallowing Impairment (Stroke, Ischemic/Transient Ischemic Attack) Goal: Oral Intake without Aspiration Outcome: Ongoing (Interventions Implemented as Appropriate) Problem: Urinary Elimination Impaired (Stroke, Ischemic/Transient Ischemic Attack) Goal: Effective Urinary Elimination Outcome: Ongoing (Interventions Implemented as Appropriate) Problem: Pain Acute Goal: Acceptable Pain Control and Functional Ability Outcome: Ongoing (Interventions Implemented as Appropriate) Problem: Bleeding (Surgery Nonspecified) Goal: Absence of Bleeding Outcome: Ongoing (Interventions Implemented as Appropriate) Problem: Bowel Motility Impaired (Surgery Nonspecified) Goal: Effective Bowel Elimination Outcome: Ongoing (Interventions Implemented as Appropriate) Problem: Infection (Surgery Nonspecified) Goal: Absence of Infection Signs and Symptoms Outcome: Ongoing (Interventions Implemented as Appropriate) Problem: Ongoing Anesthesia Effects (Surgery Nonspecified) Goal: Anesthesia/Sedation Recovery Outcome: Ongoing (Interventions Implemented as Appropriate) Problem: Pain (Surgery Nonspecified) Goal: Acceptable Pain Control Outcome: Ongoing (Interventions Implemented as Appropriate) Problem: Postoperative Nausea and Vomiting (Surgery Nonspecified) Goal: Nausea and Vomiting Relief Outcome: Ongoing (Interventions Implemented as Appropriate) Problem: Postoperative Urinary Retention (Surgery Nonspecified) Goal: Effective Urinary Elimination Outcome: Ongoing (Interventions Implemented as Appropriate) Problem: Infection Goal: Absence of Infection Signs and Symptoms Outcome: Ongoing (Interventions Implemented as Appropriate) Problem: Communication Impairment (Mechanical Ventilation, Invasive) Goal: Effective Communication Outcome: Ongoing (Interventions Implemented as Appropriate) Problem: Device-Related Complication Risk (Mechanical Ventilation, Invasive) Goal: Optimal Device Function Outcome: Ongoing (Interventions Implemented as Appropriate) Problem: Inability to Wean (Mechanical Ventilation, Invasive) Goal: Mechanical Ventilation Liberation Outcome: Ongoing (Interventions Implemented as Appropriate) * Plan of Care - Latosha Winston RN - 09/20/2024 12:38 PM EDT PT IS LETHARGIC BUT ON PRECEDEX, FOLLOWING COMMANDS, VSS AND WITHIN PRESCRIBED PARAMTERS. URINE OUTPUT IS ADEQUATE, TONGUE SWELLING IS DECREASING, TOLERATING TUBEFEEDS. POSS EXTUBATION TOMORROW. Problem: Adjustment to Illness (Stroke, Ischemic/Transient Ischemic Attack) Goal: Optimal Coping Outcome: Ongoing (Interventions Implemented as Appropriate) Problem: Bowel Elimination Impaired (Stroke, Ischemic/Transient Ischemic Attack) Goal: Effective Bowel Elimination Outcome: Ongoing (Interventions Implemented as Appropriate) Problem: Cerebral Tissue Perfusion (Stroke, Ischemic/Transient Ischemic Attack) Goal: Optimal Cerebral Tissue Perfusion Outcome: Ongoing (Interventions Implemented as Appropriate) Problem: Cognitive Impairment (Stroke, Ischemic/Transient Ischemic Attack) Goal: Optimal Cognitive Function Outcome: Ongoing (Interventions Implemented as Appropriate) Problem: Communication Impairment (Stroke, Ischemic/Transient Ischemic Attack) Goal: Improved Communication Skills Outcome: Ongoing (Interventions Implemented as Appropriate) Problem: Functional Ability Impaired (Stroke, Ischemic/Transient Ischemic Attack) Goal: Optimal Functional Ability Outcome: Ongoing (Interventions Implemented as Appropriate) Problem: Respiratory Compromise (Stroke, Ischemic/Transient Ischemic Attack) Goal: Effective Oxygenation and Ventilation Outcome: Ongoing (Interventions Implemented as Appropriate) Problem: Sensorimotor Impairment (Stroke, Ischemic/Transient Ischemic Attack) Goal: Improved Sensorimotor Function Outcome: Ongoing (Interventions Implemented as Appropriate) Problem: Eating/Swallowing Impairment (Stroke, Ischemic/Transient Ischemic Attack) Goal: Oral Intake without Aspiration Outcome: Ongoing (Interventions Implemented as Appropriate) Problem: Urinary Elimination Impaired (Stroke, Ischemic/Transient Ischemic Attack) Goal: Effective Urinary Elimination Outcome: Ongoing (Interventions Implemented as Appropriate) Problem: Pain Acute Goal: Acceptable Pain Control and Functional Ability Outcome: Ongoing (Interventions Implemented as Appropriate) Problem: Bleeding (Surgery Nonspecified) Goal: Absence of Bleeding Outcome: Ongoing (Interventions Implemented as Appropriate) Problem: Bowel Motility Impaired (Surgery Nonspecified) Goal: Effective Bowel Elimination Outcome: Ongoing (Interventions Implemented as Appropriate) Problem: Infection (Surgery Nonspecified) Goal: Absence of Infection Signs and Symptoms Outcome: Ongoing (Interventions Implemented as Appropriate) Problem: Ongoing Anesthesia Effects (Surgery Nonspecified) Goal: Anesthesia/Sedation Recovery Outcome: Ongoing (Interventions Implemented as Appropriate) Problem: Pain (Surgery Nonspecified) Goal: Acceptable Pain Control Outcome: Ongoing (Interventions Implemented as Appropriate) Problem: Postoperative Nausea and Vomiting (Surgery Nonspecified) Goal: Nausea and Vomiting Relief Outcome: Ongoing (Interventions Implemented as Appropriate) Problem: Postoperative Urinary Retention (Surgery Nonspecified) Goal: Effective Urinary Elimination Outcome: Ongoing (Interventions Implemented as Appropriate) Problem: Infection Goal: Absence of Infection Signs and Symptoms Outcome: Ongoing (Interventions Implemented as Appropriate) Problem: Communication Impairment (Mechanical Ventilation, Invasive) Goal: Effective Communication Outcome: Ongoing (Interventions Implemented as Appropriate) Problem: Device-Related Complication Risk (Mechanical Ventilation, Invasive) Goal: Optimal Device Function Outcome: Ongoing (Interventions Implemented as Appropriate) Problem: Inability to Wean (Mechanical Ventilation, Invasive) Goal: Mechanical Ventilation Liberation Outcome: Ongoing (Interventions Implemented as Appropriate) Problem: Nutrition Impairment (Mechanical Ventilation, Invasive) Goal: Optimal Nutrition Delivery Outcome: Ongoing (Interventions Implemented as Appropriate) Problem: Skin and Tissue Injury (Mechanical Ventilation, Invasive) Goal: Absence of Device-Related Skin and Tissue Injury Outcome: Ongoing (Interventions Implemented as Appropriate) Problem: Ventilator-Induced Lung Injury (Mechanical Ventilation, Invasive) Goal: Absence of Ventilator-Induced Lung Injury Outcome: Ongoing (Interventions Implemented as Appropriate) Problem: Seizure, Active Management Goal: Absence of Seizure/Seizure-Related Injury Outcome: Ongoing (Interventions Implemented as Appropriate) Problem: Bleeding (Craniotomy/Craniectomy/Cranioplasty) Goal: Absence of Bleeding Outcome: Ongoing (Interventions Implemented as Appropriate) Problem: Cerebral Tissue Perfusion Risk (Craniotomy/Craniectomy/Cranioplasty) Goal: Effective Cerebral Tissue Perfusion Outcome: Ongoing (Interventions Implemented as Appropriate) Problem: Fluid Imbalance (Craniotomy/Craniectomy/Cranioplasty) Goal: Fluid Balance Outcome: Ongoing (Interventions Implemented as Appropriate) Problem: Infection (Craniotomy/Craniectomy/Cranioplasty) Goal: Absence of Infection Signs and Symptoms Outcome: Ongoing (Interventions Implemented as Appropriate) Problem: Ongoing Anesthesia Effects (Craniotomy/Craniectomy/Cranioplasty) Goal: Anesthesia/Sedation Recovery Outcome: Ongoing (Interventions Implemented as Appropriate) Problem: Pain (Craniotomy/Craniectomy/Cranioplasty) Goal: Acceptable Pain Control Outcome: Ongoing (Interventions Implemented as Appropriate) Problem: Postoperative Nausea and Vomiting (Craniotomy/Craniectomy/Cranioplasty) Goal: Nausea and Vomiting Relief Outcome: Ongoing (Interventions Implemented as Appropriate) Problem: Postoperative Urinary Retention (Craniotomy/Craniectomy/Cranioplasty) Goal: Effective Urinary Elimination Outcome: Ongoing (Interventions Implemented as Appropriate) * Plan of Care - Zarina Taylor RN - 09/20/2024 7:03 AM EDT OUTCOME EVALUATION NOTE: OUTCOME SUMMARY: Q1 neuro checks grossly unchanged on dex, see flowsheets. Dex weaned in preparation for possible extubation today. Pt remains in PS at 30%, passed SBT with RT. NSR on telemetry. Cliviprex gtt titrated for SBP <140. AUBREY drain with minimal sanguinous output overnight. TF held since 0400 per MD order. Pt able to rest between care, denies pain. PLAN MOVING FORWARD: Q1 neuro checks SBP <140 Possible extubation INDIVIDUALIZED FALL PREVENTION INTERVENTIONS: Patient-specific fall risk factors per assessment: [current deficits]: Lines, drains, pain, generalized weakness, altered mental status, medication effects, hospital equipment, and mobility limitations Assistance [level of assistance required for transfers and ambulation]: 2 assist Supervision [direct monitoring required during toileting and ADLs]: Hands on Surveillance [continuous indirect monitoring]: [facility] ICU, bed alarm, purposeful rounding, room near nurses station Patient-specific fall prevention interventions for sensory deficits provided, if applicable: [X] Yes CARE PLAN GOAL OUTCOME EVALUATION: Problem: Fall Injury Risk Goal: Absence of Fall and Fall-Related Injury Outcome: Outcome (s) achieved Problem: Restraint, Nonbehavioral (Nonviolent) Goal: Discontinuation Criteria Achieved Outcome: Outcome (s) achieved Problem: Adjustment to Illness (Stroke, Hemorrhagic) Goal: Optimal Coping Outcome: Outcome (s) achieved Problem: Bowel Elimination Impaired (Stroke, Hemorrhagic) Goal: Effective Bowel Elimination Outcome: Outcome (s) achieved Problem: Cerebral Tissue Perfusion (Stroke, Hemorrhagic) Goal: Optimal Cerebral Tissue Perfusion Outcome: Outcome (s) achieved Problem: Cognitive Impairment (Stroke, Hemorrhagic) Goal: Optimal Cognitive Function Outcome: Outcome (s) achieved Problem: Communication Impairment (Stroke, Hemorrhagic) Goal: Effective Communication Skills Outcome: Outcome (s) achieved Problem: Functional Ability Impaired (Stroke, Hemorrhagic) Goal: Optimal Functional Ability Outcome: Outcome (s) achieved Problem: Pain (Stroke, Hemorrhagic) Goal: Acceptable Pain Control Outcome: Outcome (s) achieved Problem: Respiratory Compromise (Stroke, Hemorrhagic) Goal: Effective Oxygenation and Ventilation Outcome: Outcome (s) achieved Problem: Sensorimotor Impairment (Stroke, Hemorrhagic) Goal: Improved Sensorimotor Function Outcome: Outcome (s) achieved Problem: Swallowing Impairment (Stroke, Hemorrhagic) Goal: Oral Intake without Aspiration Outcome: Outcome (s) achieved Problem: Urinary Elimination Impaired (Stroke, Hemorrhagic) Goal: Effective Urinary Elimination Outcome: Outcome (s) achieved Problem: Adult Inpatient Plan of Care Goal: Plan of Care Review Outcome: Outcome (s) achieved Goal: Patient-Specific Goal (Individualized) Outcome: Outcome (s) achieved Goal: Absence of Hospital-Acquired Illness or Injury Outcome: Outcome (s) achieved Goal: Optimal Comfort and Wellbeing Outcome: Outcome (s) achieved Goal: Readiness for Transition of Care Outcome: Outcome (s) achieved Zarina Taylor RN * Plan of Care - Yadira Goncalves RN - 09/19/2024 6:45 PM EDT OUTCOME EVALUATION NOTE: OUTCOME SUMMARY: -no acute neuro events, follows commands in RUE and RLE, withdraws in LUE and LLE, L eye deviated downward gaze, able to open eyes spontaneously, pt. Able to give thumbs up on R hand for yes and wags finger for no -labile BP, nicard titrated to meet SBP <140, nicard d/c and cleviprex initiated d/t to volume control (edematous), dilt increased to 90mg -precedex started d/t increased respiratory rate and anxiety with good effect -lasix 40mg this AM with good UO -AUOP -MRI completed -K phos repleted -AUBREY drain 6cc output -TF at goal of 55 -R groin site CDI -decadron started -copious oral secretions PLAN MOVING FORWARD: -q1hr NC, VS -q4hr BG -hold TF @4am -SBP <140 CARE PLAN GOAL OUTCOME EVALUATION: Problem: Cerebral Tissue Perfusion (Stroke, Hemorrhagic) Goal: Optimal Cerebral Tissue Perfusion Outcome: Ongoing (Interventions Implemented as Appropriate) Problem: Functional Ability Impaired (Stroke, Hemorrhagic) Goal: Optimal Functional Ability Outcome: Ongoing (Interventions Implemented as Appropriate) Problem: Respiratory Compromise (Stroke, Hemorrhagic) Goal: Effective Oxygenation and Ventilation Outcome: Ongoing (Interventions Implemented as Appropriate) Problem: Sensorimotor Impairment (Stroke, Hemorrhagic) Goal: Improved Sensorimotor Function Outcome: Ongoing (Interventions Implemented as Appropriate) * Plan of Care - Yadira Goncalves RN - 09/18/2024 6:45 PM EDT OUTCOME EVALUATION NOTE: OUTCOME SUMMARY: -no acute neuro events, continues to follow commands in RUE & RLE, withdraws in LUE & LLE. L deviated downward gaze, see neuro flowsheet -febrile at handoff, q6hr IV tylenol initiated with good effect -x3 10mg IV labetalol, x2 20mg IV labetalol, and x1 IV fentanyl 25mcg given to meet goal of SBP <140, nicard started intermittently throughout shift (see MAR) -OGT d/c, DHT placed -bridled -continuous maintenance fluids d/c -blood cultures, lower resp culture obtained -R groin site CDI, no evidence of hematoma -x1 BM PLAN MOVING FORWARD: -q1hr NC, VS -q4hr BG -TF to meet goal @55 -SBP <140 -MRI CARE PLAN GOAL OUTCOME EVALUATION: Problem: Cerebral Tissue Perfusion (Stroke, Hemorrhagic) Goal: Optimal Cerebral Tissue Perfusion Outcome: Ongoing (Interventions Implemented as Appropriate) Problem: Functional Ability Impaired (Stroke, Hemorrhagic) Goal: Optimal Functional Ability Outcome: Ongoing (Interventions Implemented as Appropriate) Problem: Respiratory Compromise (Stroke, Hemorrhagic) Goal: Effective Oxygenation and Ventilation Outcome: Ongoing (Interventions Implemented as Appropriate) Problem: Adjustment to Illness (Stroke, Hemorrhagic) Goal: Optimal Coping Outcome: Ongoing (Interventions Implemented as Appropriate) * Plan of Care - Favio Ye RN - 09/17/2024 7:52 PM EDT Problem: Fall Injury Risk Goal: Absence of Fall and Fall-Related Injury Outcome: Ongoing (Interventions Implemented as Appropriate) Problem: Restraint, Nonbehavioral (Nonviolent) Goal: Discontinuation Criteria Achieved Outcome: Ongoing (Interventions Implemented as Appropriate) Problem: Adjustment to Illness (Stroke, Hemorrhagic) Goal: Optimal Coping Outcome: Ongoing (Interventions Implemented as Appropriate) Problem: Bowel Elimination Impaired (Stroke, Hemorrhagic) Goal: Effective Bowel Elimination Outcome: Ongoing (Interventions Implemented as Appropriate) Problem: Cerebral Tissue Perfusion (Stroke, Hemorrhagic) Goal: Optimal Cerebral Tissue Perfusion Outcome: Ongoing (Interventions Implemented as Appropriate) Problem: Cognitive Impairment (Stroke, Hemorrhagic) Goal: Optimal Cognitive Function Outcome: Ongoing (Interventions Implemented as Appropriate) Problem: Communication Impairment (Stroke, Hemorrhagic) Goal: Effective Communication Skills Outcome: Ongoing (Interventions Implemented as Appropriate) Problem: Functional Ability Impaired (Stroke, Hemorrhagic) Goal: Optimal Functional Ability Outcome: Ongoing (Interventions Implemented as Appropriate) Problem: Pain (Stroke, Hemorrhagic) Goal: Acceptable Pain Control Outcome: Ongoing (Interventions Implemented as Appropriate) Problem: Respiratory Compromise (Stroke, Hemorrhagic) Goal: Effective Oxygenation and Ventilation Outcome: Ongoing (Interventions Implemented as Appropriate) Problem: Sensorimotor Impairment (Stroke, Hemorrhagic) Goal: Improved Sensorimotor Function Outcome: Ongoing (Interventions Implemented as Appropriate) Problem: Swallowing Impairment (Stroke, Hemorrhagic) Goal: Oral Intake without Aspiration Outcome: Ongoing (Interventions Implemented as Appropriate) Problem: Urinary Elimination Impaired (Stroke, Hemorrhagic) Goal: Effective Urinary Elimination Outcome: Ongoing (Interventions Implemented as Appropriate) Problem: Adult Inpatient Plan of Care Goal: Plan of Care Review Outcome: Ongoing (Interventions Implemented as Appropriate) Goal: Patient-Specific Goal (Individualized) Outcome: Ongoing (Interventions Implemented as Appropriate) Goal: Absence of Hospital-Acquired Illness or Injury Outcome: Ongoing (Interventions Implemented as Appropriate) Goal: Optimal Comfort and Wellbeing Outcome: Ongoing (Interventions Implemented as Appropriate) Goal: Readiness for Transition of Care Outcome: Ongoing (Interventions Implemented as Appropriate) * Care Management - Evelyn Matute MSW - 09/17/2024 3:09 PM EDT BOOKKEEPING MACHINE OPERATOR completed the Social Work Initial Assessment with patient's son, Don Pollard [phone], andchart review. Patient is not medically stable for discharge at this time. * Care Management - Evelyn Matute MSW - 09/17/2024 2:35 PM EDT Office of Care Management Social Work Assessment GENERAL INFORMATION Source of Information: Child, Chart Review Reason for social work referral: Neuro Critical Care Admission Admitted from: Home Readmission within the last 30 days: no previous admission in last 30 days Decision Maker: Self Advanced Directive: No, need to discuss Patient/Caregiver Goal of Treatment: Intubated, unable to respond. SOCIAL ENVIRONMENT / SUPPORTS Others in the home: alone Current Living Arrangements: home/apartment/condo Home Layout: Few stairs at the entrance. Unable to pay mortgage or rent on time: No How many places have you lived: 0 Did not have a steady place to sleep: No Able to return to prior arrangements: yes Resource/Environmental Concerns: none Lack of transportation to appointments and medications: No Lack of transportation for meetings, work, etc: No Social & Family Supports Names & Contact Information: Patient's son is primary support, Johnathon, and RANDY Stone, who lives close to the patient. Quality of Family Relationships: helpful, involved, supportive Current Outpatient/Agency/Support Group: unable to assess Functional Status Current Functional Status: unable to assess Prior Functional Status: Assistive Equipment Equipment Currently Used at Home: cane - straight Prior ADLs & IDALs: Independent with all ADLs & IADLs Independent with Cooking Independent with Cleaning In the Home N/A Independent with Driving Shops Independently, needs assist to carry groceries in Independent with Medication Management Independent with Bathing Independent with Dressing independent with finances Employment / Employment Status: retired Employment / Comments: Financial Source of Income: pension/long term, social security Financial / Environmental Concerns: Utilities Shut off: No Food Insecurity Worry: Never true Inability to pay for food: Never true Who Manages Finances if Patient Unable: Patient Public Assistance Status Comments: Finance Comments: Legal Legal Concers that Impact Hospitalization: none MENTAL / BEHAVIORAL HEALTH Values / Beliefs Worship / Spiritual Practices and Beliefs : Deferred Coping / Stress Major Change / Loss / Stressor: none Patient Personal Strengths: able to adapt Sources of Support: adult child(yen), significant other Techniques to [place] with Loss/Stress/Change: medication Reaction to Health Status: adjusting Understanding of Condition and Treatment: adequate understanding of medical condition Behavioral Health Condition Management Behavioral Health Symptoms/Conditions: Behavioral Management Strategies: Mental Health Treatment Previous Mental Health Treatment: none Current Mental Health Treatment: none SAFETY / TRAUMA Abuse Screen (yes response referral indicated) Feels Unsafe at Home or Work/School: no Feels Threatened by Someone: no Does Anyone Try to Keep You From Having Contact with Others or Doing Things Outside Your Home?: no Physical Signs of Abuse Present: no SUBSTANCE USE CONCERNS Alcohol Use Screen In the past year have you had 5 or more drinks a day containing alcohol?: No Substance Use Screen In the past year have you used an illegal drug or used a prescription medication for non-medical reasons?: No In the past year have you used opioids (oxycodone, Vicodin, heroin, fentanyl, buprenorphine, methadone, etc.) for non-medical reasons?: No DISCHARGE/DISPOSITION CONCERNS Discharge Needs Assessment Concerns to be Addressed: discharge planning Outpatient / Agency / Support Group Needs: homecare agency Patient's Choice of Community Agency(s): Social Work Assessment: Per medical chart: Lucero Bruno is a 74 y.o. female referred for cardiac catheterization by her primary care cardiology provider Iliana Carpenter APRN ([facility]/[place] [facility]) for evaluation of cardiac hemodynamics, left atrial appendage anatomy, and implantation of left atrial appendage occlusion device (Watchman FLX) if indicated. Patient is unable to respond to questions at this time. BOOKKEEPING MACHINE OPERATOR reviewed medical chart and completed the Initial Social Work assessment with patient's son, Don Pollard, . Patient lives alonein her home, and spends most of her day with her SO, Chase, who lives a short distance away. Patient is very independent at home with ADL's. Patient has some left sided weakness from a previous surgery and has lost some of her balance, which causes her to need more time to ambulate and use the stairs. Social Work Plan: BOOKKEEPING MACHINE OPERATOR and manager ed will continue to follow patient with the medical team through rounds and updated medical notes. BOOKKEEPING MACHINE OPERATOR will continue to communicate with patient and patient's family and SO to inform them of medicalstatus. * Initial Assessments - Anupama Pastrana RN - 09/17/2024 1:42 PM EDT Office of Care Management Initial Assessment Anupama Pastrana RN reviewed record and discussed patient with Care Team. Source of Information: Team, bedside nurse, medical record, and Child, Patient, Chart Review, Other(interdisciplinary care team, jose Pollard, chart review=patient have central line placed) Introduced self/reviewed role; services accepted. Admitted From: Home Reason for Hospitalization: presented for Left cardiac catheterization but then developed brain bleed requiring emergent surgery and admission to NCCU. Past medical History: Past Medical History: Diagnosis Date Irregular heart beat Obstructive sleep apnea Hospitalizations Within the Past 30 Days: no previous admission in last 30 days Current Decision-Making Capacity: Self If AD's have not been completed the following surrogate would be surrogate decision maker per [place] surrogate decision making law. (Only good for 180 days) Any patient receiving care in [place] must abide by [place] law. The hierarchy for surrogate decision making is: (a) Patient???s spouse or civil union partner unless there is a divorce proceeding, separation agreement, or restraining order limiting that person???s relationship with the patient. (b) Any adult son Don Pollard ([phone]) or daughter of the patient. (c) Either parent of the patient. (d) Any adult brother or sister of the patient. (e) Any adult grandchild of the patient. (f) Any grandparent of the patient. (g) Any adult aunt, uncle, niece, or nephew of the patient. (h) A close friend of the patient. (i) The agent with financial power of knockdown worker or a conservator appointed in accordance with RSA 464-A. (j) The guardian of the patient???s estate. Advance Care Planning: Attempt Cardiopulmonary Resuscitation - Inpatient <no information> -Advanced Directive: No, need to discuss Current Coping/Education/Information Needs: clinical updates by the interdisciplinary care team have been provided to the patient/family with the opportunity given to have questions/concerns addressed. Current Functional Ability: Assistive Person, Assistive Equipment Functional Status Prior to Admission: Assistive Equipment, Independent Prior ADLs & IADLs: Assistance Needed with ADLs & IADLs Cooking / Eating: Independent with Cooking Cleaning: Independent with Cleaning Laundry: In the Home, Independent Pet Care: Independent Driving: Family / Friends Provide Rides Groceries: Family / Friends Provide Groceries Medication Management: Independent with Medication Management Bathing: Independent with Bathing Dressing: Independent with Dressing Home Environment: Others in the home: pet(s), alone. Current Living Arrangements: home/apartment/condo. Accessibility Concerns:single family residence in [place], [place]. multi level. 5 ZAIN.. In the last 12 months, was there a time when you were not able to pay the mortgage or rent on time?: No In the past 12 months, how many times have you moved where you were living?: 0 At any time in the past 12 months, were you homeless or living in a long-term (including now)?: No In the past 12 months has the electric, gas, oil, or water [employer] threatened to shut off services in your home?: No Within the past 12 months, you worried that your food would run out before you got the money to buymore.: Sometimes true Within the past 12 months, the food you bought just didn't last and you didn't have money to get more.: Sometimes true Resource / Environmental Concerns: Resource/Environmental Concerns: none In the past 12 months, has lack of transportation kept you from medical appointments or from getting medications?: No In the past 12 months, has lack of transportation kept you from meetings, work, or from getting things needed for daily living?: No Current DME: cane - straight Home Address confirmed as: [address] [facility] [id number] 09/17/2024 Physical [address]: [address] [place] [address] , [place] [address] Social & Family Supports: All names listed below confirmed with patient as current and correct Extended Emergency Contact Information Primary Emergency Contact: Don Pollard Mobile Relation: Child Current Care Provided by: self, other (see comments) ([facility] nursing care team) Provides Primary Care For: no one, unable/limited ability to care for self Caregiver if needed: unable to assess Quality of Family relationships: helpful, involved, supportive (son Don Pollard at bedside) Community Resources being provided currently: clinic(s) (followed by [facility] Cardi) Behavioral Health History: history of stroke Substance Use/Abuse listed: Social History Tobacco Use Smoking Status Former Current packs/day: 0.00 Average packs/day: 2.0 packs/day for 30.0 years (60.0 ttl pk-yrs) Types: Cigarettes Start date: 1972 Quit date: 2002 Years since quittin.8 Smokeless Tobacco Never 0 No problems reported 1-2 Low level 3-5 Moderate level 6-8 Substantial level 9- 10 Severe level 0 to 7 points: Low risk 8 to 15 points: Medium risk 16 to 19 points: High risk 20 to 40 points: Addiction likely Other Pertinent/Service Specific Information: patient was at [facility] in 04/2024 with similar presentation. Health/Prescription Coverage: Primary Insurance: MEDICARE Payor: MEDICARE / Plan: MEDICARE PART A & B / Product Type: *No Product type* / Secondary Insurance: MEDICAID [place] ONLY if patient has Medicare A&B - Does this patient have secondary insurance?: Yes ; Prescription Coverage: Yes Preferred Pharmacy: [facility] [address] [address] Status: Patient is a : No Primary Care Provider confirmed: Leila Manjarrez [phone] Patient/Caregiver Goals of Treatment: to recover from Right IPH and return home Potential Needs for Transition of Care: home health care, rehabilitation services, outpatient care (home VNA v inpatient therapy) Agency Referrals: Not Applicable at this time; further conversation planned Transportation: no concerns Transportation Anticipated: family or friend will provide, ambulance Concerns to be Addressed: discharge planning Assessment: Patient is admitted to [facility] (pager [phone]) service for large R IPH Plan going forward: [place] Plan of Care: met with patient and son to discuss care transition needs. Thepatient was in a procedure but her son Don was able to provide details. Patient has involved and supportive family in addition to her significant other Chase who lives 5 minutes away. Chase provides transportation for the patient in addition to other home maintenance tasks. He is caring for herpets while she is in the hospital. Son believes that if inpatient therapy is recommended, that the patient would be very interested inpursuing that option. She is accustomed to a very active lifestyle (hiking, snowshoeing) and would like to continue within her functional abilities. There are no housing, transportation, insurance, or financial concerns mentioned. Patient has always had feelings of food insecurities per son but her pantry and freezer are well stocked; he notes that his mother has always been a great cook and enjoyed preparing food for her family. As such, Don believes that there is no validation behind the food insecurity question response given. It is assumed that this patient will continue to need Q1h NCCU interventions, continuous monitoring, and care over the next 7 days. Care Management team will continue to follow and assist with discharge planing and coordination of care as indicated. Anupama Pastrana, MSN, RN ACM-RN [facility] manager ed * Consult Note - Eri Stovall, RICHARD - 09/17/2024 8:36 AM EDT Images from the original note were not included. Structural Heart Consult Note Patient info: Name: Lucero Bruno : 1950 Date of Admission: 09/16/2024 ( Hospital Day 1 day ) Attending:Serenity Espinosa MD ID: Lucero Bruno is a 74 y.o. 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 Causey on 09/16/24. Course c/b severe, sudden onset headache following the procedure, found to have alarge R ICH, now s/p craniotomy and hematoma evacuation. Interim events: - remains intubated/sedated in the Neuro ICU - H/H stable, 12.9 - s/p TTE this morning without effusion/evidence of complications Social History: High School: [employer] Has worked many jobs including [employer], [employer] ; 1 year Son: Complex Congenital Heart Disease s/p repair at age 3 mos Cigarettes: NO EtOH: None recent Family History: Mother: age 68 Leukemia Fater: Diead age 75 EtOH Objective Vasoactive & Sedating Medications: Infusions: Continuous Infusions: propofoL 20 mcg/kg/min (09/17/24 0735) sodium chloride 0.9% 75 mL/hr (09/17/24 0645) Ventilator Settings: Mode: Servo U Ventilator Mode: PS/CPAP, SET RR: TV: PEEP: FiO2: VARIABLES Tidal Volume Set: (S) 360 Set PEEP (cm H2O): 8 Set FiO2: 42 % PATIENT RR: PIP: Pplateau: SpO2: OUTPUT Resp: 18 Peak Inspiratory Pressure: 19 SpO2: 97 % ABG (Arterial Blood Gas) No results for input(s): PHART, UJQ7GSN, PO2ART, NQI4PQY, LACTATEVEN, WGW4JIU, PFRATIOART2 in the last 168 hours. VBG (Venous Blood Gas) No results for input(s): PHVEN, AIP9RBN, PO2VEN, RJX4FCL, LACTATEVEN in the last 168 hours. Mixed Venous Sat No results for input(s): [id number] in the last 168 hours. Vitals Last value Range last 24 hrs Temperature Temp: 36.8 ??C (98.2 ??F) Temp: [36.4 ??C (97.5 ??F)-36.8 ??C (98.2 ??F)] Heart Rate Heart Rate: 70 Heart Rate: [56-80] Blood Pressure BP: 142/68 BP: (92-147)/(55-84) Art Line BP BP (Arterial Line): 134/54 BP (Arterial Line): (109-153)/(43-74) MAP (NBP): [67 mmHg-95 mmHg] Respiratory Rate Resp: 18 Resp: [13-24] SpO2 SpO2: 97 % SpO2: [94 %-100 %] Oxygen Delivery Oxygen Therapy O2 Device: Ventilator O2 Flow Rate (L/min): 4 L/min FiO2 (%): 40 % Intake/Output Summary (Last 24 hours) at 09/17/2024 0836 Last data filed at 09/17/2024 0800 Gross per 24 hour Intake 2774.55 ml Output 1314 ml Net 1460.55 ml Patient Vitals for the past 168 hrs: Weight 09/17/24 0600 88.7 kg (195 lb 8.8 oz) 09/16/24 2208 88.7 kg (195 lb 8.8 oz) 09/16/24 1258 88.5 kg (195 lb) Physical Exam: General: Intubated and sedated Neck: Supple Cardiovascular: Rate and rhythm regular, no murmur Respiratory: Lung pro clear to auscultation bilaterally anteriorly, intubated GI: Soft, non-distended Peripheral vascular: no LE edema Neuro: Neuro exam deferred- sedated Skin: Warm, intact, well perfused, right femoral vein without hematoma or ooze Lines/Drains/Airways Lines: PIV 09/16/24 1305 1 in length;18 gauge median cubital vein (antecubital fossa), right (Active) Indication/Daily Review of Necessity fluid therapy continuous;medication therapy continuous 09/16/242208 Site Preparation/Maintenance dressing: dry and intact 09/17/24599 Securement catheter stabilization device, secured with;site guard in place 09/16/242208 Patency/Maintenance infusing;alcohol impregnated cap applied 09/16/242208 Phlebitis 0-->no symptoms 09/17/24599 Infiltration 0-->no symptoms 09/17/24599 Site Signs/Symptoms no swelling;no redness 09/17/24 06 PIV 09/16/242210 20 gauge metacarpal vein (top of hand), right (Active) Indication/Daily Review of Necessity fluid therapy intermittent;medication therapy intermittent 09/16/242208 Site Preparation/Maintenance dressing: dry and intact 09/17/24599 Securement site guard in place;catheter stabilization device, secured with 09/16/242208 Patency/Maintenance alcohol impregnated cap applied 09/16/242208 Phlebitis 0-->no symptoms 09/17/24599 Infiltration 0-->no symptoms 09/17/24599 Site Signs/Symptoms no swelling;no redness 09/17/24 06 PIV 09/16/242215 20 gauge median cubital vein (antecubital fossa), left (Active) Indication/Daily Review of Necessity fluid therapy intermittent;medication therapy intermittent 09/16/242208 Site Preparation/Maintenance dressing: dry and intact 09/17/24599 Securement catheter stabilization device, secured with;site guard in place 09/16/242208 Patency/Maintenance flushed without difficulty;alcohol impregnated cap applied 09/16/242208 Phlebitis 0-->no symptoms 09/17/24599 Infiltration 0-->no symptoms 09/17/24599 Site Signs/Symptoms no swelling;no redness 09/17/24599 Arterial Line 09/16/24 1755 radial artery, right 20 gauge (Active) Daily Review Of Necessity completed 09/16/242208 Dressing dressing dry and intact 09/17/24599 Arterial Catheter Securement site guard in place 09/16/242208 Lumen Patency/Care flushed without difficulty;blood return present;alcohol impregnated cap applied 09/16/242208 Waveform normal 09/17/24599 Phlebitis 0-->no symptoms 09/17/24599 Infiltration 0-->no symptoms 09/17/24599 Site Signs/Symptoms no redness;no swelling;no pain;no palpable cord 09/17/24599 Pressure Catheter Interventions line leveled/zeroed;system flushed 09/16/242208 Labs: Recent Labs 09/17/243809/16/24170609/16/24 1029 WBC 23.60* 16.82* 9.46 HGB 12.9 14.2 14.7 HCT 38.5 42.8 45.6 PLATELET 327 269 311 MCV 89.7 90.7 90.5 Recent Labs 09/17/243809/16/24 1029 NA 141 140 CL 108* 104 CO2 21* 27 K 4.4 4.3 MAGNESIUM 0.73 -- PHOS 2.8 -- CALCIUM 9.1 9.5 BUN 15 17 CREATININE 0.67* 0.68* No results for input(s): PROT, ALBUMIN, AST, ALT, ALKPHOS, BILITOT, BILIDIR in the last 168 hours. Recent Labs 09/17/2461709/17/243809/16/241706 INR 1.0 1.0 1.0 PT 11.7 11.7 11.9 PTT 26 27 26 No results for input(s): CK, TROPONINT, PROBNP in the last 168 hours. Recent Labs 05/06/24 0548 TSH 0.99 Recent Labs 09/17/24 0757 09/17/24 0316 09/16/24 2205 POCGLU 122 167 170 No results for input(s): LDH, HAPTOGLOBIN, URICACID in the last 168 hours. ABG (Arterial Blood Gas) No results for input(s): PHART, HNP0FDE, PO2ART, XHS9WTP, LACTATEVEN, FZT7EDD, PFRATIOART2 in the last 168 hours. VBG (Venous Blood Gas) No results for input(s): PHVEN, IAW6GPT, PO2VEN, ESU9FJA, LACTATEVEN in the last 168 hours. Mixed Venous Sat No results for input(s): E9GXRR4 in the last 168 hours. Diagnostics: TTE 09/16/25 Interpretation Summary 1. Normal left ventriclar wall thickness, chamber size and systolic function. The left ventricular ejection fraction is 75% by Ruth's biplane. There are no segmental wall motion abnormalities. No thrombus visualized with Definity. 2. Normal right ventricular size and systolic function. 3. No hemodynamically significant valvular abnormalities. Compared to 05/06/2024: Findings are stable Head CT 09/17/24 IMPRESSION: Increased size and density of dominant right parietal hematoma, and of hemorrhage extending medially into the basal ganglia. Foci of thalamocapsular hemorrhage on the right are stable. No evidence of progressive intraventricular hemorrhage or ventricular dilation. No definitive increase in leftward midline shift or herniation. Brain CT Venogram IMPRESSION CT head: 1. Interval craniotomy with residual or recurrent hemorrhage right temporal and parietal lobe. 2. New hemorrhage right thalamus with new intraventricular extension. 3. Persistent but decreased local mass effect, subfalcine, and downward transtentorial herniation. 4. Endodontal abscess tooth #6. CTV: Negative CT for deep or superficial venous thrombus. Evidence of active hemorrhage in the right parietal lobe. Head CT 09/16/[address] head: 1. Interval craniotomy with residual or recurrent hemorrhage right temporal and parietal lobe. 2. New hemorrhage right thalamus with new intraventricular extension. 3. Persistent but decreased local mass effect, subfalcine, and downward transtentorial herniation. 4. Endodontal abscess tooth #6. CTV: Negative CT for deep or superficial venous thrombus. Evidence of active hemorrhage in the right parietal lobe. MONICA 09/16/24 (LAAO) Interpretation Summary Study performed for guidance of Watchman. PRE: No left atrial thrombus. The appendage orifice measured 21 x 16 mm by 3D assessmnent. No PFO. Lipomatous septal hypertrophy. Pericardial fat pad with no pericardial effusion. POST: Watchman well seated without manasa-device leak. See images for compression measurements. No change in appearance of pericardium. Single atrial septostomy with [id number] flow. See report for additional findings. Medications Scheduled Meds: insulin lispro 1-4 Units Subcutaneous Q4H CARLY polyethylene glycoL (MIRALAX) oral powder 17 g Oral Daily chlorhexidine 15 mL Oral BID famotidine 20 mg Per NG tube BID docusate sodium 100 mg Per NG tube BID And sennosides 17.6 mg Per NG tube BID dilTIAZem 60 mg Per NG tube Q6H CARLY Continuous Infusions: propofoL 20 mcg/kg/min (09/17/24 0735) sodium chloride 0.9% 75 mL/hr (09/17/24 0645) PRN Meds:.fentaNYL (PF), glucose 40% oral geL OR dextrose OR glucagon, labetaloL, enalaprilat, bisacodyL, acetaminophen OR acetaminophen OR acetaminophen, propofoL AND propofoL, bacitracin zinc-polymyxin B, gelatin compressed, thrombin (Bovine), lidocaine-EPINEPHrine Assessment & Plan: # Paroxysmal a-fib, s/p LAAO (Watchman) # Post-procedure R ICH, s/p craniotomy and hematoma evacuation Lucero Bruno is a 74 y.o. 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 Causey on 09/16/24. Course c/b severe, sudden onset headache following the procedure, found to have a largeR ICH, now s/p craniotomy and hematoma evacuation. She remains intubated and sedated in the Neuro ICU. TTE this morning is without evidence of effusion. Post-procedure EKG yesterday showed sinus rhythm, no acute abnormalities. Will defer antiplatelet recommendations to Neurosurgery. Plan Defer antiplatelet recommendations to Neurosurgery once patient stabilizes (had planned aspirin 81 mg daily monotherapy prior to ICH) Follow up in clinic in ~45 days with [address] or CT scan See addendum for further details and final recommendations. Eri Stovall, MSN, COMMERCIAL PEST CONTROL TECHNICIAN-BC, PULLMAN CLERK Structural Heart Pager [phone] 09/17/2024 * Consult Note - Sol Hazel, RD - 09/17/2024 8:31 AM EDT Nutrition Consult Note Lucero Bruno is a 74 y.o. 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 Now is s/p craniotomy and hematoma evacuation. 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 Interval History No data found. Reason for Assessment: Consult, ICU Tube Feeding Nutrition Recommendations: Enteral Nutrition: Peptamen Intense VHP with a goal rate of 55 ml per hour - order pended Initiate at 15 mL/hr and increase by 10 mL/hr q6 hours until goal rate. This rate is calculated to compensate for unplanned time off feedings due to potential procedures, etc. At goal, this will provide: Peptamen Intense VHP Total Volume Per Day: 1100 mL Calories per Day: 1100 Protein per Day: 101 g Free Water mL per Day: 924 % RDI: 73 % Recommend multivitamin while on this TF regimen, order pended Monitor hydration status on above TFs as they are concentrated. Pt may need additional fluids depending on IVFs, med flushes, p.o. Intake, etc. Propofol at current rate will provide 198 calories from lipid daily, or about 20 grams of fat/day. Monitor TG while on Propofol. Daily weights. Mag and Phos on daily labs. BG goal 140-180 in critical care. Monitor BM - goal of 1 BM q24-48 hours while on TF I was able to discuss plan with provider Neurocritical Care Pager #[phone] . Current Nutrition Regimen: Active Orders Diet NPO diet (Give Meds) Frequency: Effective Now Number of Occurrences: Until Specified Assessment: Lab Results Component Value Date NA 141 09/17/2024 NA 141 05/08/2024 K 4.4 09/17/2024 K 4.2 05/08/2024 CL 108 (H) 09/17/2024 CL 105 05/08/2024 CO2 21 (L) 09/17/2024 CO2 25 05/08/2024 BUN 15 09/17/2024 BUN 14 05/08/2024 CREATININE 0.67 (L) 09/17/2024 CREATININE 0.68 (L) 05/08/2024 ESTGFR 92 05/08/2024 MAGNESIUM 0.73 09/17/2024 MAGNESIUM 0.85 05/08/2024 CALCIUM 9.1 09/17/2024 CALCIUM 9.2 05/08/2024 PHOS 2.8 09/17/2024 PHOS 3.1 05/08/2024 AST 15 05/08/2024 ALT 14 05/08/2024 ALKPHOS 92 05/08/2024 BILITOT 0.4 05/08/2024 BILIDIR 0.1 05/08/2024 TRIG 147 09/17/2024 TRIG 101 05/06/2024 HA1C 6.1 (H) 09/17/2024 HA1C 6.0 (H) 05/06/2024 25OHVITD 38 11/14/2023 Lab Results Component Value Date POCGLU 122 09/17/2024 POCGLU 167 09/17/2024 POCGLU 170 09/16/2024 Patient Lines/Drains/Airways Status Active Nutritional LDAs Name Placement date Placement time Site Days Naso/Oral Tube 09/16/24 2300 orogastric center mouth 09/16/24 2300 center mouth 1 PIV 09/16/24 1305 1 in length;18 gauge median cubital vein (antecubital fossa), right 09/16/24 1305-- 1 PIV 09/16/242210 20 gauge metacarpal vein (top of hand), right 09/16/24 2211 -- 1 PIV 09/16/242215 20 gauge median cubital vein (antecubital fossa), left 09/16/24 2216 -- 1 Drain/Device Site 09/16/24 Right parietal region collapsible closed device 09/16/24 -- -- 1 Urethral Catheter 09/16/24 latex 14 5 10 09/16/24 -- -- 1 Oxygen Therapy / Airway Device: Ventilator Shift Pressure Injury Prevention Occiput: No Injury Thoracic Spine: No Injury Sacral: No Injury Ischial - left: No Injury Ischial - right: No Injury Heel - left: No Injury Heel - right: No Injury Elbow - left: No Injury Elbow - right: No Injury Device Sites: A line sites - tubing, A line Board, BP Cuff, ECG Leads, hill, IV sites, O2 sat monitor, ETT, wrist restraints, SCD's / venodynes, OG Intake/Output Summary (Last 24 hours) at 09/17/2024 0906 Last data filed at 09/17/2024 0800 Gross per 24 hour Intake 2774.55 ml Output 1314 ml Net 1460.55 ml Relevant medications: Bowel regimen Pepcid Sliding scale lispro 2g magnesium sulfate IV infusion - received this AM Propofol @ 7.5 mL/hour NS continuous IV infusion @ 75 mL/hr Anthropometrics: Admit Weight: 88.45 kg Estimated body mass index is 38.19 kg/m?? as calculated from the following: Height as of this encounter: 152.4 cm (5'). Weight as of this encounter: 88.7 kg (195 lb 8.8 oz). [place] Body Weight (IBW) (kg): 45.45 Wt Readings from Last 10 Encounters: 09/17/24 88.7 kg (195 lb 8.8 oz) 07/28/24 85.3 kg (188 lb) 05/24/24 81.6 kg (180 lb) 05/08/24 84.1 kg (185 lb 6.4 oz) 05/08/24 82 kg (180 lb 12.4 oz) 04/23/24 83.9 kg (185 lb) 03/03/24 85 kg (187 lb 6.3 oz) 11/14/23 87.2 kg (192 lb 3.2 oz) Patient Vitals for the past 168 hrs: Weight 09/17/24 0600 88.7 kg (195 lb 8.8 oz) 09/16/24 2208 88.7 kg (195 lb 8.8 oz) 09/16/24 1258 88.5 kg (195 lb) Weight Source: Bed Estimated / Assessed Needs: Fluid Requirements: Estimated Fluid Requirement Method: Weight Based Method Weight Based Method: 25 Weight Based Calculation: 1137.5 mL Kcal / K - 1419 Kcal (11 Kcal/Kg - 16 Kcal/Kg) Estimated Protein Needs: 91 g - 114 g (2.0 g/Kg - 2.5 g/Kg) Nutrition intake and intake history / interview: 09/17: Cx for TF recs. Per chart, wt has been fluctuating 82-89 kg x 10 months. No data found. Nutrition Focused Physical Exam: Not performed (Pt is 1 day post-op - concerns for pain that would be exacerbated by NFPE) Reason NFPE Not Performed: Clinical condition preventing accurate assessment. Malnutrition Diagnosis: Not identified (TRACE López J Parenteral Enteral Nutr. 2011; 36(3): 273-83) Nutrition to continue to follow up while inpatient Sol Hazel MS, RD, LD Clinical Nutrition * Brief Op Note - Crys Suarez MD - 09/16/2024 9:37 PM EDT Brief Operative Note Patient Name: Lucero Bruno : [id number] MR#: [id number] Case Date: 09/16/2024 Surgeon: Surgeons and Role: * Sushila Espinal MD - Primary * Brianne Kinney MD - Resident - Assisting * Crys Suarez MD - Resident - Assisting Preoperative diagnosis: R IPH Postoperative diagnosis: R IPH Procedure(s) (LRB): @CRANI-HEMATOMA EVACUATION, INTRACEREBRAL (WRVU 28.09) (Right) ULTRASOUND USE (WRVU 0.63) (Right) Anesthesia: General Findings: R craniotomy for IPH evac, relaxation of brain and replacement of bone flap Complications: none immediate Estimated Blood Loss: 200 mL* No values recorded between 09/16/2024 5:57 PM and 09/16/2024 9:37 PM * Specimens removed during surgery: None Fluids: Intraprocedure Crystalloid Total None PRBCs: none (See Anesthesia Record/Report for Other Blood Products) Urine Output: (no urine output recorded) Drains: SG x1 Disposition: taken directly to the ICU, intubated and in a critical condition. Condition: Guarded (Please see the Surgical Encounter Summary for any Implant and Specimen details pertinent to this patient.) Surgical Infection Prevention Bundle Used? N/A * Op Note - Sushila Espinal MD - 09/16/2024 5:57 PM EDT [facility] Operative Note Patient Name: Lucero Bruno : [id number] MR#: [id number] Case Date: 09/16/2024 Surgeon: Surgeons and Role: * Sushila Espinal MD - Primary * Brianne Kinney MD - Resident - Assisting * Crys Suarez MD - Resident - Assisting Preoperative diagnosis: R IPH Postoperative diagnosis: R IPH Procedure(s) (LRB): @CRANI-HEMATOMA EVACUATION, INTRACEREBRAL (WRVU 28.09) (Right) ULTRASOUND USE (WRVU 0.63) (Right) Anesthesia: General Estimated Blood Loss: 200 mL Specimens removed during surgery: ID Type Source Tests Collected by Time Destination 1 : Right-Sided Infraparenchymal Hemorrhage Tissue Brain, Right SURGICAL PATHOLOGY Sushila Espinal MD09/16/2024 1920 Drains: Drain/Device Site 09/16/24 Right parietal region collapsible closed device (Active) Surgical Closure: Primary Closure - skin incision is completely closed without any wires, vivien, drains or other devices Disposition: taken directly to the ICU, intubated and in a critical condition. Condition: patient in critical condition (Please see the Surgical Encounter Summary for any Implant and Specimen details pertinent to this patient.) HPI/Surgical Indications: 74F w/ Afib on ASA81, previously on apixaban w/ h/o non-operative R occipital IPH in April 2024, subsequent apixaban stopped, today underwent Watchman procedure with interventional cardiology. Post-procedure, patient developed headaches, nausea, and left sided weakness. CT head showed a 8.1 by 5.0 by 6.7 cm right mjvmznf-oeaumks-lkaekzrff intraparenchymal hematoma with 10.5 mm midline shift. On exam, she was follow commands, EO to voice, dilated unreactive right pupil and briskly reactive left pupil, left side plegic and right side following commands. E3, V4, M5 GCS 13, ICH score 1. She was given 50 ml of mannitol. The patient's condition was discussed with the patient's healthcare proxy and the benefits, risks, alternatives of a right decompressive hemicraniotomy/hemicraniectomy with hematoma evacuation was explained. All questions were answered and we were asked to proceed with surgery. Procedure Description: The patient was brought to the operating room after having been intubated, sedated, and administered anesthesia in the ICU. She was hyperventilated to a end-tidal goal of 25. She was positioned supine with a gel roll behind the right shoulder. The head was completely shaved and pinned in the Gwinner head frame and secured to the operating bed with the head turned to the left. All pressure pointswere padded. 2 g of of Ancef was given. The head was then cleaned with chlorhexidine sponge followed by alcohol. A large question keven incision was drawn on the right scalp. The patient was then prepped and draped under sterile conditions. A time-out was conducted just before the start of the procedure to verify the correct patient and procedure, procedure location, and all relevant critical information. The incision was opened with a #10 blade. Vargas clips and monopolar cautery were used for hemostasis on the scalp. A musculocutaneous flap was then raised and retracted with fishhooks. Multiple howard holes were then created. Using a B1 with a footplate craniotome the craniotomy bone flap was from the skull. Hemostasis was obtained using bipolar cautery and Surgiflo. The dura was then opened in a stellate pattern. It was then noticed at the brain was modestly swollen especially at the location where hematoma was egressing from the posterior temporal and parietal region. Intraoperative ultrasound was then used to determine the size of the hemorrhage. The corticectomy created by the spontaneous hematoma was extended cristina-poteriorly. Using a combination of suction, bipolar cautery, blunt dissection, a large amount of hematoma was evacuated. Hemostasis was obtained using bipolar cautery, irrigation, cotton balls with hydrogen peroxide, and Surgiflo. At this point, the cavity was visually inspected with no evidence of residual hematoma. After multiple repeated rounds ofhemostasis the lined the cavity with Surgicel. A Valsalva up to 40 was performed with no evidence of active hemorrhage. Ultrasound was again used to evaluate for residual hemorrhage and we found no ev idence of significant residual hematoma. The dura were then flapped back onto the brain surface. Wethen covered the dura with 2 large pieces of DuraGen. The bone edge was then lined with Surgi-Patel and fibrillar. The bone flap was then affixed to the skull using bur hole covers and titanium plates.A subgaleal 7 flat AUBREY was then tunneled subcutaneously connected to a bulb suction. Temporalis was closed using 2-0 Vicryl. Scalp was then reapproximated using 3-0 Vicryl sutures. The drain was secured using 3-0 nylon suture. This scalp was then closed using skin stacey. After the incision was dressed and covered, the patient was removed from Gwinner head fixation transferred to her ICU bed, sub sequently brought back to the ICU intubated and sedated. All sponge, needle, and instrument counts were correct. Surgical Infection Prevention Bundle Used? N/A Attestation: Case Date: 09/16/2024 I was present and I participated during the entire procedure (does not need to include opening and closing). Sushila Espinal MD 09/16/2024 * Consult Note - Fady Thompson RN - 09/16/2024 5:33 PM EDT [facility] RESPONSE TEAM NOTE Name: Lucero Bruno Age: 74 y.o. 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 Causey Director Project Management present? Yes Attending Contacted? Yes Time Activated: 16:40 Time Arrived: 16:42 Time at bedside: 1 hr. Indication for Consult: Stroke alert ASSESSMENT Brief 24 hr history: Patient s/p Watchman procedure, developed / worst headache of life, CT scan revealed large R IPH. Neuro exam continued to decline, was given Mannitol and 23%, intubated whilein CT and brought emergently to OR. Code Status: Full Code RR: <15, inadequate chest rise and expansion HR: 50-70's, increased with Mannitol/23% BP: Goal SBP <140, Propofol used to lower BP as needed. SpO2: >90% Device: Ventilator LOC: Quickly diminished while in CT scan prompting intubation. Skin: Warm, well-perfused Laboratory: Lab Results Component Value Date White Blood Cell 16.82 (H) 09/16/2024 Hemoglobin 14.2 09/16/2024 Hematocrit 42.8 09/16/2024 Platelet 269 09/16/2024 PLAN / INTERVENTION Labs ordered: CBC, BMP, Coags Tests ordered: CT scan Interventions: Intubation, OR Disposition: Transfer to OR 5:34 PM, September 16, 2024 FADY THOMPSON RN, * Consult Note - Rowan Raya PA - 09/16/2024 5:11 PM EDT [facility] [place] NEUROSURGERY CONSULT NOTE ID: Lucero Bruno 74 y.o. female : 1950 Consult Requesting Service: Cardiology Consult Requesting Attending: DUANE CAUSEY V PCP: Leila Manjarrez Time of consultation: 163 Time of patient evaluation: 1648 Reason for consult: new bleed on CT HISTORY OF PRESENT ILLNESS: Lucero Bruno is a 74 y.o. female with PMHx notable for Afib (taking ASA, previously on apixaban-stopped taking after IPH in April), CHRISTOPHER, HLD, BMI of 36, prior IPH 04/2024 who presented to hospitaltoday for placement of Watchman with cardiology. She developed headaches and nausea post op and CT scan noted large R IPH. Patient seen and examined in CT scanner. Able to speak her last name with difficulty. R gaze deviation, unable to cross midline. Per anesthesia, she was given heparin intra-op (7,000u) and reversed with protamine (20mg). PAST MEDICAL HISTORY: Past Medical History: Diagnosis Date Irregular heart beat Obstructive sleep apnea PAST SURGICAL HISTORY: Past Surgical History: Procedure Laterality Date PRO LAPAROSCOPY W TOT HYSTERECTUTERUS <=250 GRAM W TUBE/OVARY N/A 04/23/2024 LAPAROSCOPY, TOTAL HYST, UTERUS<250GMS, REM TUBE &/OR OVARY (WRVU 15) performed by Xiomara Burkett MD at [facility] OR MEDICATIONS: No current facility-administered medications on file prior to encounter. Current Outpatient Medications on File Prior to Encounter Medication Sig Dispense Refill aspirin EC 81 mg EC (DR) tablet Take 1 tablet by mouth daily. acetaminophen (Tylenol) 325 mg tablet Take 2 tablets by mouth every 6 hours as needed for Pain. cholecalciferol (Vitamin D3) 1,000 unit tablet Take 1,000 Units by mouth Daily. dilTIAZem CD (Cardizem CD) 300 mg CD (ER) 24 hr casule Take 1 capsule by mouth daily. traMADoL (Ultram) 50 mg tablet Take 50 mg by mouth Every 6 hours as needed. ALLERGIES: Allergies Allergen Reactions Oxycodone-Acetaminophen Other (See Comments) Other reaction(s): hallucinations Alendronate Sodium Nausea Only Contact Metal Agent SOCIAL HISTORY: Social History Socioeconomic History Marital status: Spouse name: Not on file Number of children: Not on file Years of education: Not on file Highest education level: Not on file Occupational History Not on file Tobacco Use Smoking status: Former Current packs/day: 0.00 Average packs/day: 2.0 packs/day for 30.0 years (60.0 ttl pk-yrs) Types: Cigarettes Start date: 1972 Quit date: 2003 Years since quittin.8 Smokeless tobacco: Never Vaping Use Vaping status: Never Used Substance and Sexual Activity Alcohol use: Never Drug use: Never Sexual activity: Never Other Topics Concern Not on file Social History Narrative Not on file Social Determinants of Health Financial Resource Strain: Medium Risk (03/03/2024) Overall Financial Resource Strain (CARDIA) Difficulty of Paying Living Expenses: Somewhat hard Food Insecurity: Food Insecurity Present (05/06/2024) Hunger Vital Sign Worried About Running Out of Food in the Last Year: Sometimes true Ran Out of Food in the Last Year: Sometimes true Transportation Needs: No Transportation Needs (05/06/2024) PRAPARE - Transportation Lack of Transportation (Medical): No Lack of Transportation (Non-Medical): No Physical Activity: Not on file Intimate Partner Violence: Unknown (09/16/2024) DH IPV Inpatient Questions Prevent Contact with Others: no Feels Threatened by Someone: unable to answer (comment required) Feels Unsafe at Home: unable to answer (comment required) Physical Signs of Abuse Present: no Housing Stability: Low Risk (05/06/2024) Housing Stability Vital Sign Unable to Pay for Housing in the Last Year: No Number of Times Moved in the Last Year: 1 Homeless in the Last Year: No FAMILY HISTORY: History reviewed. No pertinent family history. REVIEW OF SYSTEMS: As above in HPI, otherwise non-contributory. VITAL SIGNS: Visit Vitals BP 147/62 Pulse 66 Temp 36.7 ??C (98.1 ??F) (Temporal) Resp 14 Ht 152.4 cm (5') Wt 88.5 kg (195 lb) SpO2 94% BMI 38.08 kg/m?? PHYSICAL EXAM: General: appears distressed HEENT: left facial droop Neuro Exam: Alert, able to speak last name with difficulty Speech strained, slurred R pupil dilated, L pupil pinpoint R gaze preference, unable to cross midline shoulder shrug 5/5 to R, jules paresis on L MOTOR: RUE:5/5 LUE:0/5 RLE: 5/5 LLE: 0/5 Sensation intact to R side, insensate to left LABS: CBC: Lab Results Component Value Date/Time WBC 9.46 09/16/2024 10:29 AM WBC 12.6 (H) 05/08/2024 01:21 AM HGB 14.7 09/16/2024 10:29 AM HGB 14.6 05/08/2024 01:21 AM PLATELET 311 09/16/2024 10:29 AM PLATELET 246 05/08/2024 01:21 AM BMP: Lab Results Component Value Date/Time NA 140 09/16/2024 10:29 AM NA 141 05/08/2024 01:21 AM K 4.3 09/16/2024 10:29 AM K 4.2 05/08/2024 01:21 AM CL 104 09/16/2024 10:29 AM CL 105 05/08/2024 01:21 AM CO2 27 09/16/2024 10:29 AM CO2 25 05/08/2024 01:21 AM BUN 17 09/16/2024 10:29 AM BUN 14 05/08/2024 01:21 AM CREATININE 0.68 (L) 09/16/2024 10:29 AM CREATININE 0.68 (L) 05/08/2024 01:21 AM Coags: No results found for: INR, PT, PTT IMAGING: Large R IPH with midline shift- see CT Head 09/16/24 Imaging independently reviewed / reviewed with radiology. ASSESSMENT: 74 y.o. female with PMHx notable for Afib (taking ASA, previously on apixaban-stopped taking after IPH in April), CHRISTOPHER, HLD, BMI of 36, prior IPH 04/2024 who presented to hospital today for placement of Watchman with cardiology. She developed headaches and nausea post op and CT scan noted 10cm IPH. Spoke with her son, Don, on the phone who lives in [place]. Don stated his mother would want to be given the best chance at survival and wants to proceed with all invasive treatments to include intubation and surgical decompression. She was intubated in CT scanner and taken emergently to OR for R DHC. PLAN/RECS: -Q1 NCs -50g manitol, 23% saline -platelets to OR -DVT ppx with SCDs, hold antiplatelets/anticoagulants -admit to NCCU post op X Consult service will continue to follow patient. We're signing off. Recommendations above, page if further consultation required. Case discussed with Dr. Pinon PGY-7, neurosurgery chief resident. Case will be discussed with Dr. Espinal, neurosurgery attending. Future Appointments Date Time Provider Department Center 09/17/2024 7:00 AM ECHO INPATIENT ADD-ON MH NI Card [facility] 11/10/2024 8:00 AM Clarisse Duke APRN [facility] NEURO [facility] Neurosurgery Pager: [phone] ADRIANA Lindsey 09/16/2024 5:11 PM Clinical Documentation Improvement: Active Hospital Problems Diagnosis Presence of Watchman left atrial appendage closure device Resolved Hospital Problems No resolved problems to display. * Consult Note - Gissell Velazco MD - 09/16/2024 4:45 PM EDT Neurology Consult Note Patient name:Lucero Bruno Date of :1950 Admit date: 09/16/2024 Attending: Dr. Paul CC: R IPH Date last well known:: 09/16/24 Time last well known:: 1619 Date of discovery of symptoms:: 09/16/24 Time of discovery of symptoms:: 1619 Was IV Thrombolytics given?: No Was dysphagia screen performed?: No NIH Stroke Scale NIH Stroke Scale Date 09/16/24 NIH Stroke Scale Time 1645 Level of Consciousness 0 LOC Questions 2 LOC Commands 0 Best Gaze 1 Vision 2 Facial Palsy 0 Motor Arm, Left 4 Motor Arm, Right 0 Motor Leg, Left 4 Motor Leg, Right 0 Limb Ataxia 0 Sensory 2 Best Language 3 Dysarthria 2 Extinction and Inattention: 2 NIH Total Score 22 We have been asked to see Lucero Bruno by CT 2 ID: Lucero Bruno is a 74 y.o. with PMH of R occipital hemorrhage, chronic a-fib presented for watchman procedure. Post operatively at approximately 4:20 pm began complaining of severe 10/10 headache, taken to [facility] were an enlarged R IPH with mass effect and midline shift was identified. Stroke alert called. At the time of my assessment patient is alert, following commands, moving her right side and able to sustain antigravity. Unable to move left side. Pinpoint un- reactive L pupil and blown pupil on the right. NIHSS 22. SBP in 130s. BG 202. Per PACU nurse present at bedside, patient received heparin during the Watchman procedure. After finding that bleed on CT head she was given protamine for reversal. Interval Hx: At the time of my assessment patient is laying in the CT machine. She is alert tracking and able tofollow simple commands. She has left-sided weakness. Right gaze preference unable to cross midline to the left. Life safety as well as anesthesia prep were present in the room. Neurosurgery was contacted as well as neurocritical care. Blood pressure was stable. Patient continued to follow commands on the right. Given concern for ability to protect her airway she was intubated in the CT 2. Following my assessment, neurosurgery was discussing possible return to the OR for evacuation versus possible transfer to the neuro ICU. 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 No pertinent family history. Physical Exam: Patient Vitals for the past 8 hrs: BP Temp Temp src Pulse Resp SpO2 Height Weight 09/16/24 1610 147/62 -- -- 66 14 94 % -- -- 09/16/24 1600 128/84 -- -- 72 14 95 % -- -- 09/16/24 1555 110/76 -- -- 74 15 94 % -- -- 09/16/24 1550 131/67 -- -- 71 14 94 % -- -- 09/16/24 1546 122/69 -- -- 78 18 95 % -- -- 09/16/24 1545 122/69 -- -- 75 19 95 % -- -- 09/16/24 1540 115/63 -- -- 74 18 96 % -- -- 09/16/24 1535 129/61 -- -- 75 17 96 % -- -- 09/16/24 1530 113/64 -- -- 76 16 96 % -- -- 09/16/24 1525 120/56 -- -- 77 18 94 % -- -- 09/16/24 1258 145/71 36.7 ??C (98.1 ??F) Temporal 65 16 97 % 152.4 cm (5') 88.5 kg (195 lb) GEN-following commands on the right hemibody no movement on the left upper or lower extremity. CN-pupils unequal, pinpoint on the left and blown pupil on the R non reactive. Right gaze preference unable to cross midline to the left. No blink to threat on the left. MOTOR- no drift in the right hemibody. No movement on the left. SENSATION -nods yes to sensory testing on the right. No response on the left. Possible component ofleft hemineglect. CEREBELLUM -no nystagmus. Finger to nose and heel to greene not tested given situation. Labs: I/O 24 Hours: No intake/output data recorded. I/O this shift: In: 930 [I.V.:700; Blood:230] Out: 4 [Blood:4] Recent Labs 09/16/24 1707 09/16/24 1029 WBC 16.82* 9.46 HGB 14.2 14.7 HCT 42.8 45.6 PLATELET 269 311 NEUTROABS 13.33* 6.43* Recent Labs 09/16/24 1029 NA 140 K 4.3 CL 104 CO2 27 BUN 17 CREATININE 0.68* GLUCOSE 111* Recent Labs 09/16/24 1029 CALCIUM 9.5 No results for input(s): AST, ALT, ALKPHOS, BILITOT, BILIDIR, LDH in the last 168 hours. No results for input(s): TROPONINT, CK in the last 168 hours. No results for input(s): PHART, IWD0IQD, PO2ART, TBY6HZA in the last 168 hours. No results for input(s): INR in the last 72 hours. Lipid Panel Lab Results Component Value Date CHLPL 135 05/06/2024 HDL 46 05/06/2024 TRIG 101 05/06/2024 LDLCHOL 69 05/06/2024 Recent Labs 05/06/24 0548 HA1C 6.0* Diagnostic Tests and Imaging: No results found for this visit on 09/16/24. Assessment and Plan: 74 y.o. female w/ PMH of R occipital hemorrhage, chronic a-fib presented for watchman procedure. Post operatively at approximately 4:20 pm began complaining of severe 10/10 headache, taken to CTH were an enlarged R IPH with mass effect and midline shift was identified. Stroke alert called. At the time of my assessment patient is alert, following commands, moving her right side and able to sustainantigravity. Unable to move left side. Pinpoint un-reactive L pupil and blown pupil on the right. NIHSS 22. SBP in 130s. BG 202. 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 She does however have a history of atrial fibrillation and was here for watchman procedure. Heparin was given during the procedure. Given the severity of the bleed as well as significant mass effect and midline shift on CTH, neurosurgery was engaged, and given the size and extent of bleed will defer further workup and recommendations to neurosurgery at this time. #Neuro: - Defer acute management to Neurosurgery and NCCU - Hold all anticoagulation/antiplatelet in the setting of acute bleed. - Will need ongoing surveillance CTH q6h to assess for possible progression of bleed. - coag panel and replete as needed. - s/p Protamine for Heparin reversal - s/p CTH - Consider MRI Brain wo when medically stable Please page Vascular Neurology at #[phone] with any questions. Umm Goodrich MD Neurology, PGY3 [place] [address] Neurology Attending Attestation I evaluated the patient with the Neurology Residents at the time of the stroke alert. I have reviewed the medical records and patient's history, as well as the resident???s and student's history and examination findings and I agree with the details as written. My neurologic examination confirms theresident???s findings. We formulated the assessment and plan after a detailed discussion, as documented. Gissell Velazco MD Vascular Neurology * Brief Op Note - Duane Causey MD - 09/16/2024 3:04 PM EDT Images from the original note were not included. Preliminary Cardiac Catheterization Procedure Note: Patient Name: Lucero Bruno : [id number] MR#: [id number] Case Date: 09/16/2024 Edge Setter: Surgeons and Role: Panel 1: * Duane Causey MD - Primary Panel 2: * Tl Gamino MD - Primary Preoperative diagnosis: A fib ANGUS Postoperative diagnosis: AFib s/p LAAO Procedure(s) performed: LAAO US guided venous access US guided Transseptal puncture Left Heart Catheterization LAAO (WATCHMAN) deployment Venous Closure Base Line MONICA Demonstrated: ANGUS Anterior Chicken Wing Max Martita 23 mm Right Femoral Vein 14 FR Watchman TruSteer US guided Right Femoral Vein Access. After obtaining Baseline MONICA assessment which demonstrated the ANGUS appropriate for closure without thrombus. Under US guidance a Transseptal puncture was performed using the [employer] VersaCross System. A WM TruSteer sheath was tracked across the inter-atrial septum without difficulty. An angled angiographic pig tail catheter (6Fr) was then positioned in the ANGUS through which an angiogram was performed showing anatomy c/w MONICA findings (LA = 12 mmHg). A Watchman FLX-Pro 27 mm ([id number]) was prepped according to the Elevator Repairer's IFU with special attention to elimante all air The WM/Delivery system was introduced into the access sheath, positioned in the ANGUS and deployed. Initial deployment was too proximal. The device was repositioned and deployed two additional times after which demonstrated the dev ice to be be in good position A post-tug test formal MONICA evaluation showed the device to be well positioned with good compression and seal meeting PASS Criteria. The Device was then released. Repeat MONICA evaluation reconfirmed good placement. Further evaluation reconfirmed good placement meeting PASS criteria. There was NO pericardial effusion. Contrast ~40 ml The WM sheath was then removed with hemostasis obtained by Perclosure. Anesthesia was then reversed followed by extubation. The was then patient transferred to the PACU groggy without apparent complications. Duane Causey MD [facility] structural steel worker Pager 2020 documented in this encounter Plan of Treatment Upcoming Encounters Date Type Department Care Team (Late st Contact Info) Description 11/04/2024 11:15 AM EST Appointment [place] [phone] 11/10/2024 8:00 AM EST [place] [phone] Clarisse Duke, PULLMAN CLERK [facility] [place] [address] 11/15/2024 10:[address] Scan at [address] Karli Morales MD [facility] [place] [address] 11/15/2024 11:20 AM EST Office [place] [phone] Marvin Kimball PA [facility] [place] [address] 12/15/2024 4:40 PM EST TH Visit (TeleHealth) Cardiology at [address] Duane Causey MD [facility] [place] [address] Pending Results Name Type Priority Associated Diagnoses Date /Time CENTRAL LINE Procedures Routine 09/17/2024 1 :23 PM EDT Scheduled Orders Name Type Priority Associated Diagnoses Orde r Schedule IR Suture Release Imaging Routine Severe protein-calorie malnutrition Expected: 10/11/2024, Expires: 12/04/2024 CT Head wo Contrast (Generic) Imaging Routine S/P craniotomy Expected: 11/11/2024, Expires: 02/09/2025 documented as of this encounter Procedures Procedure Name Priority Date/Time Associated Diagnosis Comments POC, GLUCOSE Routine 10/12/2024 12:23 PM EST POC, GLUCOSE Routine 10/12/2024 11:03 AM EST XR SHOULDER LEFT Routine 10/12/2024 10:2 1 AM EST POC, GLUCOSE Routine 10/12/2024 9:10 AM EST POC, GLUCOSE Routine 10/12/2024 7:22 AM EST POC, GLUCOSE Routine 10/12/2024 2:02 AM EST CBC (WITH DIFF) Routine 10/12/2024 12:04 AM EST PHOSPHORUS Routine 10/12/2024 12:04 AM EST MAGNESIUM Routine 10/12/2024 12:04 AM EST BASIC METABOLIC PANEL Routine 10/12/2024 12:04 AM EST POC, GLUCOSE Routine 10/11/2024 8:22 PM EST RAPID COVID-19 PCR ([facility]) Routine 10/11/2024 4:26 PM EST POC, GLUCOSE Routine 10/11/2024 4:01 PM EST POC, GLUCOSE Routine 10/11/2024 12:15 PM EST POC, GLUCOSE Routine 10/11/2024 7:30 AM EST POC, GLUCOSE Routine 10/11/2024 2:40 AM EST TSH CASCADE Routine 10/10/2024 11:50 PM EST CBC (WITH DIFF) Routine 10/10/2024 11:50 PM EST PHOSPHORUS Routine 10/10/2024 11:50 PM EST MAGNESIUM Routine 10/10/2024 11:50 PM EST BASIC METABOLIC PANEL Routine 10/10/2024 11:50 PM EST POC, GLUCOSE Routine 10/10/2024 8:37 PM EST POC, GLUCOSE Routine 10/10/2024 5:30 PM EST POC, GLUCOSE Routine 10/10/2024 12:30 PM EST POC, GLUCOSE Routine 10/10/2024 8:12 AM EST POC, GLUCOSE Routine 10/10/2024 3:57 AM EST CBC (WITH DIFF) Routine 10/10/2024 12:44 AM EST PHOSPHORUS Routine 10/10/2024 12:44 AM EST MAGNESIUM Routine 10/10/2024 12:44 AM EST BASIC METABOLIC PANEL Routine 10/10/2024 12:44 AM EST POC, GLUCOSE [...] POC, GLUCOSE Routine 10/09/2024 1:06 AM EST CBC (WITH DIFF) Routine 10/09/2024 12:59 AM EST PHOSPHORUS Routine 10/09/2024 12:59 AM EST MAGNESIUM Routine 10/09/2024 12:59 AM EST BASIC METABOLIC PANEL Routine 10/09/2024 12:59 AM EST POC, GLUCOSE Routine 10/08/2024 8:35 PM EST POC, GLUCOSE Routine 10/08/2024 4:41 PM EST XR FLUORO BARIUM SWALLOW (MODIFIED/VIDEO SWALLOW PHARYNX) Routine 10/08/2024 4:10 PM EST POC, GLUCOSE Routine 10/08/2024 12:49 PM EST POC, GLUCOSE Routine 10/08/2024 8:26 AM EST POC, GLUCOSE Routine 10/08/2024 4:15 AM EST CBC (WITH DIFF) Routine 10/08/2024 1:13 AM EST PHOSPHORUS Routine 10/08/2024 1:13 AM EST MAGNESIUM Routine 10/08/2024 1:13 AM EST BASIC METABOLIC PANEL Routine 10/08/2024 1:13 AM EST POC, GLUCOSE Routine 10/08/2024 1:07 AM EST POC, GLUCOSE Routine 10/07/2024 8:55 PM EST POC, GLUCOSE Routine 10/07/2024 4:[address] HEAD WO CONTRAST (GENERIC) STAT 10/07/2024 3:25 PM EST POC, GLUCOSE Routine 10/07/2024 11:30 AM EST POC, GLUCOSE Routine 10/07/2024 8:42 AM EST POC, GLUCOSE Routine 10/07/2024 4:17 AM EST CBC (WITH DIFF) Routine 10/07/2024 1:12 AM EST PHOSPHORUS Routine 10/07/2024 1:12 AM EST MAGNESIUM Routine 10/07/2024 1:12 AM EST BASIC METABOLIC PANEL Routine 10/07/2024 1:12 AM EST POC, GLUCOSE Routine 10/07/2024 1:00 AM EST POC, GLUCOSE Routine 10/06/2024 8:40 PM EST POC, GLUCOSE Routine 10/06/2024 4:20 PM EST TROPONIN-T, HIGH SENSITIVITY 1 HOUR PERFORMABLE STAT 10/06/2024 12:41 PM EST POC, GLUCOSE Routine 10/06/2024 12:24 PM EST TROPONIN-T, HIGH SENSITIVITY INITIAL PERFORMABLE STAT 10/06/2024 11:13 AM EST TROPONIN - SERIES STAT 10/06/2024 11: 13 AM EST XR CHEST ONE VIEW Routine 10/06/2024 10: 59 AM EST POC, GLUCOSE Routine 10/06/2024 8:42 AM EST POC, GLUCOSE Routine 10/06/2024 7:34 AM EST POC, GLUCOSE Routine 10/06/2024 4:33 AM EST POC, GLUCOSE Routine 10/06/2024 3:55 AM EST CBC (WITH DIFF) Routine 10/06/2024 12:33 AM EST PHOSPHORUS Routine 10/06/2024 12:33 AM EST MAGNESIUM Routine 10/06/2024 12:33 AM EST BASIC METABOLIC PANEL Routine 10/06/2024 12:33 AM EST POC, GLUCOSE Routine 10/06/2024 12:14 AM EST POC, GLUCOSE Routine 10/05/2024 8:33 PM EST POC, GLUCOSE Routine 10/05/2024 4:59 PM EST POC, GLUCOSE Routine 10/05/2024 12:40 PM EST POC, GLUCOSE Routine 10/05/2024 8:53 AM EST POC, GLUCOSE Routine 10/05/2024 4:11 AM EST CRP, ACUTE INFLAMMATION Add-On 10/05/20 12:08 AM EST SEDIMENTATION RATE Add-On 10/05/2024 12 :08 AM EST CBC (WITH DIFF) Routine 10/05/2024 12:08 AM EST PHOSPHORUS Routine 10/05/2024 12:08 AM EST MAGNESIUM Routine 10/05/2024 12:08 AM EST BASIC METABOLIC PANEL Routine 10/05/2024 12:08 AM EST POC, GLUCOSE Routine 10/04/2024 11:47 PM EST MRI BRAIN WWO CONTRAST (GENERIC) STAT 10/04/2024 10:30 PM EST POC, GLUCOSE Routine 10/04/2024 7:31 PM EST POC, GLUCOSE Routine 10/04/2024 4:53 PM EST IR G-TUBE PLACEMENT Routine 10/04/2024 1 :00 PM EST PERCUTANEOUS GASTROSTOMY 10/04/2024 12:00 PM EST R occipital hemorrhage, unable to swallow, NG tube currently placed, will need PEG for longer term nutrition POC, GLUCOSE Routine 10/04/2024 8:12 AM EST POC, GLUCOSE Routine 10/04/2024 3:[address] HEAD WO CONTRAST (GENERIC) Routine 10/04/2024 1:40 AM EST CBC (WITH DIFF) Routine 10/04/2024 12:29 AM EST PHOSPHORUS Routine 10/04/2024 12:29 AM EST MAGNESIUM Routine 10/04/2024 12:29 AM EST BASIC METABOLIC PANEL Routine 10/04/2024 12:29 AM EST POC, GLUCOSE Routine 10/04/2024 12:06 AM EST POC, GLUCOSE Routine 10/03/2024 7:47 PM EST POC, GLUCOSE Routine 10/03/2024 3:49 PM EST POC, GLUCOSE Routine 10/03/2024 11:24 AM EST POC, GLUCOSE Routine 10/03/2024 8:00 AM EST CBC (WITH DIFF) Routine 10/03/2024 4:05 AM EST PHOSPHORUS Routine 10/03/2024 4:05 AM EST MAGNESIUM Routine 10/03/2024 4:05 AM EST BASIC METABOLIC PANEL Routine 10/03/2024 4:05 AM EST POC, GLUCOSE Routine 10/03/2024 4:03 AM EST POC, GLUCOSE Routine 10/02/2024 11:39 PM EST POC, GLUCOSE Routine 10/02/2024 8:33 PM EST POC, GLUCOSE Routine 10/02/2024 4:08 PM EST POC, GLUCOSE Routine 10/02/2024 11:52 AM EST POC, GLUCOSE Routine 10/02/2024 8:27 AM EST POC, GLUCOSE Routine 10/02/2024 4:41 AM EST CBC (WITH DIFF) Routine 10/02/2024 1:49 AM EST PHOSPHORUS Routine 10/02/2024 1:49 AM EST MAGNESIUM Routine 10/02/2024 1:49 AM EST BASIC METABOLIC PANEL Routine 10/02/2024 1:49 AM EST POC, GLUCOSE Routine 10/02/2024 12:22 AM EST POC, GLUCOSE Routine 10/01/2024 7:44 PM EST POC, GLUCOSE Routine 10/01/2024 4:22 PM EST POC, GLUCOSE Routine 10/01/2024 12:02 PM EST POC, GLUCOSE Routine 10/01/2024 8:01 AM EST POC, GLUCOSE Routine 10/01/2024 3:39 AM EST CBC (WITH DIFF) Routine 10/01/2024 12:21 AM EST PHOSPHORUS Routine 10/01/2024 12:21 AM EST MAGNESIUM Routine 10/01/2024 12:21 AM EST BASIC METABOLIC PANEL Routine 10/01/2024 12:21 AM EST POC, GLUCOSE Routine 09/30/2024 8:15 PM EST POC, GLUCOSE Routine 09/30/2024 4:36 PM EST POC, GLUCOSE Routine 09/30/2024 11:53 AM EST POC, GLUCOSE Routine 09/30/2024 9:05 AM EST POC, GLUCOSE Routine 09/30/2024 4:53 AM EST CBC (WITH DIFF) Routine 09/30/2024 1:44 AM EST PHOSPHORUS Routine 09/30/2024 1:44 AM EST MAGNESIUM Routine 09/30/2024 1:44 AM EST BASIC METABOLIC PANEL Routine 09/30/2024 1:44 AM EST POC, GLUCOSE Routine 09/29/2024 11:37 PM EST POC, GLUCOSE Routine 09/29/2024 8:09 PM EST POC, GLUCOSE Routine 09/29/2024 6:14 PM EST XR CHEST ONE VIEW Routine 09/29/2024 1:1 3 PM EST POC, GLUCOSE Routine 09/29/2024 11:29 AM EST POC, GLUCOSE Routine 09/29/2024 8:37 AM EST POC, GLUCOSE Routine 09/29/2024 4:47 AM EST CBC (WITH DIFF) Routine 09/29/2024 1:09 AM EST MAGNESIUM Routine 09/29/2024 1:09 AM EST POC, GLUCOSE Routine 09/29/2024 12:53 AM EST POC, GLUCOSE Routine 09/28/2024 10:25 PM EST XR CHEST ONE VIEW STAT 09/28/2024 7:5 8 PM EST POC, GLUCOSE Routine 09/28/2024 7:50 PM EST POC, GLUCOSE Routine 09/28/2024 3:52 PM EST POC, GLUCOSE Routine 09/28/2024 12:19 PM EST POC, GLUCOSE Routine 09/28/2024 7:54 AM [...] 3:59 AM EST Atrial fibrillation, unspecified type TROPONIN-T, HIGH SENSITIVITY INITIAL PERFORMABLE STAT 09/28/2024 3:58 AM EST SCAN, PERIPHERAL BLOOD Routine 3:58 AM EST TROPONIN - SERIES STAT [...] SCREEN PERFORMABLE STAT 09/27/2024 8:46 AM EST C. DIFFICILE SCREEN STAT 09/27/2024 8 :46 AM EST C DIFF PCR STAT 09/27/2024 8:46 AM EST POC, GLUCOSE Routine 09/27/2024 8:24 AM EST POC, GLUCOSE Routine 09/27/2024 3:40 AM EST CBC (WITH DIFF) Routine 09/27/2024 1:38 AM EST PHOSPHORUS Routine 09/27/2024 1:38 AM EST MAGNESIUM Routine 09/27/2024 1:38 AM EST BASIC METABOLIC PANEL Routine 09/27/2024 1:38 AM EST POC, GLUCOSE Routine 09/26/2024 11:30 PM EST POC, GLUCOSE Routine 09/26/2024 7:27 PM EST EXTUBATE Routine 09/26/2024 3:30 PM EST POC, GLUCOSE Routine 09/26/2024 3:12 PM EST BLOOD CULTURE STAT 09/26/2024 2:53 PM EST BLOOD CULTURE STAT 09/26/2024 2:[address] CHEST PULMONARY EMBOLISM W CONTRAST STAT 09/26/2024 1:[address] ABDOMEN AND PELVIS W CONTRAST STAT 09/26/2024 1:[address] HEAD WO CONTRAST (GENERIC) STAT 09/26/2024 1:37 PM EST POTASSIUM Routine 09/26/2024 12:16 PM EST POC, GLUCOSE Routine 09/26/2024 11:27 AM EST POC, GLUCOSE Routine 09/26/2024 7:52 AM EST PROLACTIN Routine 09/26/2024 6:35 AM EST PHOSPHORUS Routine 09/26/2024 6:35 AM EST CK Add-On 09/26/2024 6:35 AM EST HEPATIC FUNCTION PANEL Routine 6:35 AM EST BASIC METABOLIC PANEL Routine 09/26/2024 6:35 AM EST POC, GLUCOSE Routine 09/26/2024 3:23 AM EST LACTATE, WHOLE BLOOD Routine 09/26/2024 12:31 AM EDT CBC (WITH DIFF) Routine 09/26/2024 12:31 AM EDT PHOSPHORUS Routine 09/26/2024 12:31 AM EDT MAGNESIUM Routine 09/26/2024 12:31 AM EDT BASIC METABOLIC PANEL Routine 09/26/2024 12:31 AM EDT POC, GLUCOSE Routine 09/26/2024 12:06 AM EDT POC, GLUCOSE Routine 09/25/2024 7:41 PM EDT POC, GLUCOSE Routine 09/25/2024 4:01 PM EDT POC, GLUCOSE Routine 09/25/2024 11:59 AM EDT POC, GLUCOSE Routine 09/25/2024 7:46 AM EDT CBC (WITH DIFF) Routine 09/25/2024 4:29 AM EDT PHOSPHORUS Routine 09/25/2024 4:29 AM EDT MAGNESIUM Routine 09/25/2024 4:29 AM EDT BASIC METABOLIC PANEL Routine 09/25/2024 4:29 AM EDT POC, GLUCOSE Routine 09/25/2024 3:46 AM EDT POC, GLUCOSE Routine 09/24/2024 11:50 PM EDT POC, GLUCOSE Routine 09/24/2024 7:50 PM EDT POC, GLUCOSE Routine 09/24/2024 3:18 PM EDT POC, GLUCOSE Routine 09/24/2024 11:16 AM EDT POC, GLUCOSE Routine 09/24/2024 7:39 AM EDT SCAN, PERIPHERAL BLOOD Routine 5:00 AM EDT CBC (WITH DIFF) Routine 09/24/2024 5:00 AM EDT PHOSPHORUS Routine 09/24/2024 5:00 AM EDT MAGNESIUM Routine 09/24/2024 5:00 AM EDT BASIC METABOLIC PANEL Routine 09/24/2024 5:00 AM EDT POC, GLUCOSE Routine 09/24/2024 4:05 AM EDT POC, GLUCOSE Routine 09/23/2024 11:57 PM EDT POC, GLUCOSE Routine 09/23/2024 7:59 PM EDT POTASSIUM Routine 09/23/2024 4:23 PM EDT POC, GLUCOSE Routine 09/23/2024 3:53 PM EDT POC, GLUCOSE Routine 09/23/2024 11:30 AM EDT URINALYSIS BEAKER MICROSCOPIC ([facility]) STAT 09/23/2024 10:29 AM EDT _URINALYSIS WITH MICRSOCOPIC STAT 09/23/2024 10:29 AM EDT URINALYSIS MICROSCOPIC EXAM STAT 09/23/2024 10:29 AM EDT URINALYSIS DIPSTICK STAT 09/23/2024 1 0:29 AM EDT RESPIRATORY CULTURE, QUANTITATIVE STAT 09/23/2024 10:26 AM EDT MINI BRONCHIAL ALVEOLAR LAVAGE (MIN-BAL) Routine 09/23/2024 10:24 AM EDT POTASSIUM Routine 09/23/2024 7:56 AM EDT HEPATIC FUNCTION PANEL Add-On 7:56 AM EDT POC, GLUCOSE Routine 09/23/2024 7:41 AM EDT POC, GLUCOSE Routine 09/23/2024 7:15 AM EDT POC, GLUCOSE Routine 09/23/2024 4:11 AM EDT CBC (WITH DIFF) Routine 09/23/2024 1:01 AM EDT PHOSPHORUS Routine 09/23/2024 1:01 AM EDT MAGNESIUM Routine 09/23/2024 1:01 AM EDT BASIC METABOLIC PANEL Routine 09/23/2024 1:01 AM EDT POC, GLUCOSE Routine 09/23/2024 12:47 AM EDT POC, GLUCOSE Routine 09/22/2024 11:40 PM EDT POC, GLUCOSE Routine 09/22/2024 9:02 PM EDT POC, GLUCOSE Routine 09/22/2024 7:38 PM EDT POC, GLUCOSE Routine 09/22/2024 3:52 PM EDT POC, GLUCOSE Routine 09/22/2024 11:56 AM EDT MRSA PCR SCREEN Routine 09/22/2024 11:43 AM EDT POC, GLUCOSE Routine 09/22/2024 7:52 AM EDT POC, GLUCOSE Routine 09/22/2024 4:[address] HEAD WO CONTRAST (GENERIC) Routine 09/22/2024 4:02 AM EDT CBC (WITH DIFF) Routine 09/22/2024 1:26 AM EDT PHOSPHORUS Routine 09/22/2024 1:26 AM EDT MAGNESIUM Routine 09/22/2024 1:26 AM EDT BASIC METABOLIC PANEL Routine 09/22/2024 1:26 AM EDT POC, GLUCOSE Routine 09/21/2024 11:37 PM EDT POC, GLUCOSE Routine 09/21/2024 7:52 PM EDT POC, GLUCOSE Routine 09/21/2024 4:03 PM EDT XR CHEST ONE VIEW Routine 09/21/2024 2:0 1 PM EDT XR ABDOMEN 1 VIEW Routine 09/21/2024 2:0 1 PM EDT ENDOTRACHEAL TUBE POSITION CHANGE Routine 09/21/2024 1:58 PM EDT INTUBATION Routine 09/21/2024 12:55 PM EDT EXTUBATE Routine 09/21/2024 11:37 AM EDT POC, GLUCOSE Routine 09/21/2024 11:13 AM EDT POC, GLUCOSE Routine 09/21/2024 7:46 AM EDT POC, GLUCOSE Routine 09/21/2024 7:26 AM EDT POC, GLUCOSE Routine 09/21/2024 4:[address] HEAD WO CONTRAST (GENERIC) Routine 09/21/2024 3:50 AM EDT CBC (WITH DIFF) Routine 09/21/2024 12:21 AM EDT PHOSPHORUS Routine 09/21/2024 12:21 AM EDT MAGNESIUM Routine 09/21/2024 12:21 AM EDT BASIC METABOLIC PANEL Routine 09/21/2024 12:21 AM EDT POC, GLUCOSE Routine 09/21/2024 12:20 AM EDT POC, GLUCOSE Routine 09/20/2024 9:46 PM EDT POC, GLUCOSE Routine 09/20/2024 3:57 PM EDT POC, GLUCOSE Routine 09/20/2024 11:55 AM EDT DUPLEX FOR DVT BILAT LEGS Routine 09/20/2024 11:29 AM EDT Right-sided nontraumatic intracerebral hemorrhage, unspecified cerebral location POC, GLUCOSE Routine 09/20/2024 9:50 AM EDT POC, GLUCOSE Routine 09/20/2024 7:53 AM EDT POC, GLUCOSE Routine 09/20/2024 3:53 AM EDT POC, GLUCOSE Routine 09/20/2024 12:09 AM EDT CBC (WITH DIFF) Routine 09/20/2024 12:09 AM EDT TRIGLYCERIDE Routine 09/20/2024 12:09 AM EDT PHOSPHORUS Routine 09/20/2024 12:09 AM EDT MAGNESIUM Routine 09/20/2024 12:09 AM EDT BASIC METABOLIC PANEL Routine 09/20/2024 12:09 AM EDT POC, GLUCOSE Routine 09/19/2024 7:36 PM EDT MRI BRAIN WWO CONTRAST (GENERIC) Routine 09/19/2024 5:43 PM EDT POC, GLUCOSE Routine 09/19/2024 3:30 PM EDT POC, GLUCOSE Routine 09/19/2024 12:34 PM EDT POC, GLUCOSE Routine 09/19/2024 7:35 AM EDT POC, GLUCOSE Routine 09/19/2024 4:23 AM EDT POC, GLUCOSE Routine 09/19/2024 1:00 AM EDT CBC (WITH DIFF) Routine 09/19/2024 12:55 AM EDT PHOSPHORUS Routine 09/19/2024 12:55 AM EDT MAGNESIUM Routine 09/19/2024 12:55 AM EDT BASIC METABOLIC PANEL Routine 09/19/2024 12:55 AM EDT POC, GLUCOSE Routine 09/18/2024 8:13 PM EDT POC, GLUCOSE Routine 09/18/2024 4:26 [...] POC, GLUCOSE Routine 09/18/2024 7:47 AM EDT HC PARTIAL THROMBOPLASTIN TIME Routine 09/18/2024 6:15 AM EDT PROTHROMBIN TIME Routine 09/18/2024 6:15 AM EDT SODIUM Add-On 09/18/2024 6:15 AM EDT POTASSIUM Routine 09/18/2024 6:15 AM EDT POC, GLUCOSE Routine 09/18/2024 4:37 AM EDT SCAN, PERIPHERAL BLOOD Routine 12:20 AM EDT HC PARTIAL THROMBOPLASTIN TIME Routine 09/18/2024 12:20 AM EDT PROTHROMBIN TIME Routine 09/18/2024 12:2 0 AM EDT CBC (WITH DIFF) Routine 09/18/2024 12:20 AM EDT PHOSPHORUS Routine 09/18/2024 12:20 AM EDT MAGNESIUM Routine 09/18/2024 12:20 AM EDT BASIC METABOLIC PANEL Routine 09/18/2024 12:20 AM EDT POC, GLUCOSE Routine 09/17/2024 11:45 PM EDT POC, GLUCOSE Routine 09/17/2024 8:34 PM EDT HC PARTIAL THROMBOPLASTIN TIME Routine [...] POC, GLUCOSE Routine 09/17/2024 3:16 AM EDT SCAN, PERIPHERAL BLOOD Routine 12:39 AM EDT HC PARTIAL THROMBOPLASTIN TIME Routine 09/17/2024 12:39 AM EDT PROTHROMBIN TIME Routine 09/17/2024 12:3 9 AM EDT CBC (WITH DIFF) Routine 09/17/2024 12:39 AM EDT TRIGLYCERIDE Routine 09/17/2024 12:39 AM EDT PHOSPHORUS Routine 09/17/2024 12:39 AM EDT OSMOLALITY Add-On 09/17/2024 12:39 AM EDT MAGNESIUM Routine 09/17/2024 12:39 AM EDT LDL CHOLESTEROL, DIRECT Routine 09/17/20 12:39 AM EDT HDL/CHOL PROFILE Routine 09/17/2024 12:3 9 AM EDT HEMOGLOBIN A1C Routine 09/17/2024 12:39 AM EDT GLUCOSE Routine 09/17/2024 12:39 AM EDT BASIC METABOLIC PANEL Routine 09/17/2024 12:[address] VENOGRAM BRAIN Routine 09/16/2024 11: [address] HEAD WO CONTRAST (GENERIC) Routine 09/16/2024 11:21 PM EDT XR CHEST ONE VIEW STAT 09/16/2024 11: 00 PM EDT XR ABDOMEN 1 VIEW Routine 09/16/2024 11: 00 PM EDT PREPARE RBC [...] 5:49 PM EDT Us, Head, Real Time ([id number]) 09/16/2024 5:28 PM EDT R [facility] Open Skull Evac Intracerebr Blood (23096) 09/16/2024 5:28 PM EDT R [facility] CT HEAD WO CONTRAST (GENERIC) Routine 09/16/2024 5:26 PM EDT EXTRA TUBES Routine 09/16/2024 5:07 PM EDT GREEN TUBE HOLD Routine 09/16/2024 5:07 PM EDT HC PARTIAL THROMBOPLASTIN TIME STAT 09/16/2024 5:07 PM EDT PROTHROMBIN TIME STAT 09/16/2024 5:07 PM EDT CBC (WITH DIFF) STAT 09/16/2024 5:07 PM EDT TRIGLYCERIDE Add-On 09/16/2024 5:07 PM EDT EKG 12-LEAD Routine 09/16/2024 3:33 PM EDT Atrial fibrillation, unspecified type CARDIAC CATHETERIZATION Routine 09/16/20 3:16 PM EDT Atrial fibrillation, unspecified type MONICA W LMTD SPECTRAL DOPPLER COLOR DOPPLER Routine 09/16/2024 3:03 PM EDT Atrial fibrillation, unspecified type TRANSESOPHAGEAL ECHO DURING CATH/EP PROCEDURE 09/16/2024 1:26 PM EDT Atrial fibrillation, unspecified type IMPLANTABLE DEVICES SCAN 09/16/2024 12:00 AM EDT PERQ TRANSCATH CLOSURE LEFT ATRIAL APPENDAGE W ENDOCARD IMPLANT Routine 08/03/2024 12:40 PM EDT Atrial fibrillation, unspecified type documented in this encounter Results * POC, GLUCOSE (10/12/2024 12:23 PM EST) Glucometer, POC 157 65 - 199 mg/dL 10/12/2024 12:23 PM EST [facility] Comment:Supplemental ranges: <140 mg/dL before meals <180 mg/dL all other times of the day. Blood CAPILLARY BLOOD / Unknown 10/12/2024 12:23 PM EST 10/12/2024 12:24 PM EST Karli Morales MD POINT OF CARE TEST O ALDO Performing Organization Address [facility]/ZIP Co de Phone Number [facility] [place] [address] * POC, GLUCOSE (10/12/2024 11:03 AM EST) Glucometer, POC 188 65 - 199 mg/dL 10/12/2024 11:04 AM EST [facility] Comment:Supplemental ranges: <140 mg/dL before meals <180 mg/dL all other times of the day. 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 Thank you for letting us participate in the care of this patient. ??If you are a health care provider and have any questions regarding this report, please contact the number below. ??For patients who have questions please contact the health ocular care technician that requested your imaging first. ? Electronically signed by: Sammy Story MD, [facility] ([phone]), at 10/12/2024 3:39 PM Narrative 10/12/2024 3:39 PM EST EXAMINATION: XR [...] patients who have questions please contactthe health ocular care technician that requested your imaging first. Electronically signed by: Sammy Story MD, [facility]([phone]), at 10/12/2024 3:39 PM Karli Morales MD IMG DX ORDERABLES * POC, GLUCOSE (10/12/2024 9:10 AM EST) Glucometer, POC 149 65 - 199 mg/dL 10/12/2024 9:10 AM EST [facility] Comment:Supplemental ranges: <140 mg/dL before meals <180 mg/dL all other times of the day. Blood CAPILLARY BLOOD / Unknown 10/12/2024 9:10 AM EST 10/12/2024 9:10 AM EST Karli Morales MD POINT OF CARE TEST O ALDO [facility] [place] [place] [address] * POC, GLUCOSE (10/12/2024 7:22 AM EST) Glucometer, POC 146 65 - 199 mg/dL 10/12/2024 7:23 AM EST [facility] Comment:Supplemental ranges: <140 mg/dL before meals <180 mg/dL all other times of the day. Blood CAPILLARY BLOOD / Unknown 10/12/2024 7:22 AM EST 10/12/2024 7:23 AM EST Karli Morales MD POINT OF CARE TEST O ALDO Performing Organization Address [facility] Co de Phone Number [facility] [place] [address] * POC, GLUCOSE (10/12/2024 2:02 AM EST) Glucometer, POC 167 65 - 199 mg/dL 10/12/2024 2:03 AM EST [facility] Comment:Supplemental ranges: <140 mg/dL before meals <180 mg/dL all other times of the day. Blood CAPILLARY BLOOD / Unknown 10/12/2024 2:02 AM EST 10/12/2024 2:03 AM EST Karli Morales MD POINT OF CARE TEST Yi CARLSON [facility] [place] [address] * Phosphorus (10/12/2024 12:04 AM EST) Pathologist [facility] Phosphorus 3.3 2.5 - 4.5 mg/dL 10/12/2024 12:52 AM EST [facility] Blood VENOUS BLOOD SPECIMEN / Unknown Venipuncture / Unknown 10/12/2024 12:04 AM EST 10/12/2024 12:23 AM EST Librado Patel MD CHEMISTRY ORDERABLES [facility] [place] [address] * Magnesium (10/12/2024 12:04 AM EST) [facility] Magnesium 0.74 0.69 - 1.07 mMol/L 10/12/2024 12:52 AM [facility] Blood VENOUS BLOOD SPECIMEN / Unknown Venipuncture / Unknown 10/12/2024 12:04 AM EST 10/12/2024 12:23 AM EST Librado Patel MD CHEMISTRY ORDERABLES [facility] [place] [address] * (ABNORMAL) Basic Metabolic Panel (10/12/2024 12:04 AM EST) [facility] Glucose 154 65 - 199 mg/dL 10/12/2024 12:52 AM [facility] Comment:Glucose Concentratio n >=200 mg/dL plus symptoms is consistent with Diabetes Mellitus. Blood Urea Nitrogen 23(H) 8 - 18 mg/dL 10/12/2024 12:52 AM EST [facility] Creatinine 0.40(L) 0.70 - 1.20 mg/dL 10/12/2024 12:52 AM EST [facility] Sodium 141 135 - 145 mMol/L 10/12/2024 12:52 AM [facility] Potassium 3.9 3.5 - 5.0 mMol/L 10/12/2024 12:52 AM [facility] Chloride 104 98 - 107 mMol/L 10/12/2024 12:52 AM [facility] Carbon Dioxide 27 22 - 31 mMol/L 10/12/2024 12:52 AM [facility] Anion Gap 10 5 - 15 mMol/L 10/12/2024 12:52 AM [facility] Calcium 9.2 8.5 - 10.5 mg/dL 10/12/2024 12:52 AM [facility] Est Glomerular Filtration Rate - Female 105 mL/min/1. 73 m?? 10/12/2024 12:52 AM [facility] Comment: This patient's estimated GFR was [...] MD CHEMISTRY ORDERABLES [facility] [place] [address] * (ABNORMAL) CBC (with Diff) (10/12/2024 12:04 AM EST) White Blood Cell 9.08 4.00 - 9.50 x10(3)/mc L 10/12/2024 12:27 AM EST [facility] Red Blood Cell 3.61(L) 4.00 - 5.21 x10(6)/mc L 10/12/2024 12:27 AM [facility] Hemoglobin 10.9(L) 11.7 - 15.5 g/dL 10/12/2024 12:27 AM [facility] Hematocrit 33.7(L) 35.7 - 45.8 % 10/12/2024 12:27 AM [facility] Mean Cell Volume 93.4 82.6 - 94.4 fL 10/12/2024 12:27 AM [facility] Mean Cell Hemoglobin 30.2 27.1 - 32.0 pg 10/12/2024 12:27 AM [facility] Mean Cell Hemoglobin Concentration 32.3 31.7 - 35.0 g/dL 10/12/2024 12:27 AM [facility] Platelet 284 145 - 357 x10(3)/mc L 10/12/2024 12:27 AM [facility] Mean Platelet Volume 10.3 7.6 - 12.9 fL 10/12/2024 12:27 AM [facility] RDW Standard Deviation 49.2(H) 37.0 - 46.0 fL 10/12/2024 12:27 AM [facility] RDW coefficient of variation 14.5(H) 11.5 - 14.1 % 10/12/2024 12:27 AM [facility] NRBC% auto 0.0 % 10/12/2024 12:27 AM [facility] NRBC Absolute <0.01 <0.01 x10(3)/mc L 10/12/2024 12:27 AM [facility] Neutrophil % 66.0 % 10/12/2024 12:27 AM [facility] Neutrophil Absolute (ANC) - Automated 5.99 1.70 - 6.10 x10(3)/mc L 10/12/2024 12:27 AM [facility] Lymph % 20.2 % 10/12/2024 12:27 AM [facility] Lymph Absolute 1.83 0.90 - 3.20 x10(3)/mc L 10/12/2024 12:27 AM EST [facility] Monocyte % 8.1 % 10/12/2024 12:27 AM [facility] Monocyte Absolute 0.74 0.30 - 0.90 x10(3)/mc L 10/12/2024 12:27 AM [facility] Eos % 4.0 % 10/12/2024 12:27 AM [facility] Eos Absolute 0.36 0.00 - 0.40 x10(3)/mc L 10/12/2024 12:27 AM [facility] Basophil % 0.2 % 10/12/2024 12:27 AM [facility] Baso Absolute <0.04 0.00 - 0.10 x10(3)/mc L 10/12/2024 12:27 AM [facility] Immature Gran % 1.5 % 12:27 AM [facility] Immature Gran Absolute 0.14(H) 0.00 - 0.04 x10(3)/mc L 10/12/2024 12:27 AM [facility] Blood VENOUS BLOOD SPECIMEN / Unknown Venipuncture / Unknown 10/12/2024 12:04 AM EST 10/12/2024 12:23 AM EST Librado Patel MD HEMATOLOGY ORDERABLE S [facility] [place] [address] * POC, GLUCOSE (10/11/2024 8:22 PM EST) Glucometer, POC 154 65 - 199 mg/dL 10/11/2024 8:22 PM EST [facility] Comment:Supplemental ranges: <140 mg/dL before meals <180 mg/dL all other times of the day. Blood CAPILLARY BLOOD / Unknown 10/11/2024 8:22 PM EST 10/11/2024 8:22 PM EST Karli Morales MD POINT OF CARE TEST O RDERABLES [facility] [place] [address] * COVID-19 PCR (10/11/2024 4:26 PM EST) SARS-CoV-2 RNA (Rapid) Not Detected Not Detected 10/11/2024 7:04 PM EST [facility] Swab SPECIMEN FROM NASOPHARYNGEAL STRUCTURE / Unknown Non Blood Collection / Unknown 10/11/2024 4:26 PM EST 10/11/2024 4:39 PM EST Karli Morales MD MICROBIOLOGY - GENER AL ORDERABLES Performing Organization Address City/[facility]/ZIP Co de Phone Number [facility] [place] [address] * POC, GLUCOSE (10/11/2024 4:01 PM EST) Glucometer, POC 156 65 - 199 mg/dL 10/11/2024 4:02 PM EST [facility] Comment:Supplemental ranges: <140 mg/dL before meals <180 mg/dL all other times of the day. Blood CAPILLARY BLOOD / Unknown 10/11/2024 4:01 PM EST 10/11/2024 4:02 PM EST Karli Morales MD POINT OF CARE TEST O RDERABLES [facility] [place] [address] * POC, GLUCOSE (10/11/2024 12:15 PM EST) Glucometer, POC 152 65 - 199 mg/dL 10/11/2024 12:16 PM EST [facility] Comment:Supplemental ranges: <140 mg/dL before meals <180 mg/dL all other times of the day. Blood CAPILLARY BLOOD / Unknown 10/11/2024 12:15 PM EST 10/11/2024 12:16 PM EST Karli Morales MD POINT OF CARE TEST O ALDO Performing Organization Address City/[facility]/ZIP Co de Phone Number [facility] [place] [address] * POC, GLUCOSE (10/11/2024 7:30 AM EST) Glucometer, POC 126 65 - 199 mg/dL 10/11/2024 7:30 AM EST [facility] Comment:Supplemental ranges: <140 mg/dL before meals <180 mg/dL all other times of the day. Blood CAPILLARY BLOOD / Unknown 10/11/2024 7:30 AM EST 10/11/2024 7:30 AM EST Karli Morales MD POINT OF CARE TEST O ALDO Performing Organization Address [facility] Co de Phone Number [facility] [place] [address] * POC, GLUCOSE (10/11/2024 2:40 AM EST) Glucometer, POC 139 65 - 199 mg/dL 10/11/2024 2:40 AM EST [facility] Comment:Supplemental ranges: <140 mg/dL before meals <180 mg/dL all other times of the day. Blood CAPILLARY BLOOD / Unknown 10/11/2024 2:40 AM EST 10/11/2024 2:41 AM EST Karli Morales MD POINT OF CARE TEST O ALDO Performing Organization Address City/[facility] Co de Phone Number [facility] [place] [address] * Phosphorus (10/10/2024 11:50 PM EST) Phosphorus 3.0 2.5 - 4.5 mg/dL 10/11/2024 12:44 AM EST [facility] Blood VENOUS BLOOD SPECIMEN / Unknown Venipuncture / Unknown 10/10/2024 11:50 PM EST 10/11/2024 12:07 AM EST Librado Patel MD CHEMISTRY ORDERABLES Performing Organization Address City/[facility]/ZIP Co de Phone Number [facility] [place] [address] * Magnesium (10/10/2024 11:50 PM EST) Magnesium 0.73 0.69 - 1.07 mMol/L 10/11/2024 12:44 AM [facility] Blood VENOUS BLOOD SPECIMEN / Unknown Venipuncture / Unknown 10/10/2024 11:50 PM EST 10/11/2024 12:07 AM EST Librado Patel MD CHEMISTRY ORDERABLES Performing Organization Address City/[facility]/ZIP Co de Phone Number [facility] [place] [address] * (ABNORMAL) Basic Metabolic Panel (10/10/2024 11:50 PM EST) Glucose 179 65 - 199 mg/dL 10/11/2024 12:44 AM [facility] Comment:Glucose Concentratio n >=200 mg/dL plus symptoms is consistent with Diabetes Mellitus. Blood Urea Nitrogen 21(H) 8 - 18 mg/dL 10/11/2024 12:44 AM [facility] Creatinine 0.35(L) 0.70 - 1.20 mg/dL 10/11/2024 12:44 AM [facility] Sodium 139 135 - 145 mMol/L 10/11/2024 12:44 AM [facility] Potassium 3.8 3.5 - 5.0 mMol/L 10/11/2024 12:44 AM [facility] Chloride 103 98 - 107 mMol/L 10/11/2024 12:44 AM [facility] Carbon Dioxide 27 22 - 31 mMol/L 10/11/2024 12:44 AM [facility] Anion Gap 9 5 - 15 mMol/L 10/11/2024 12:44 AM [facility] Calcium 9.3 8.5 - 10.5 mg/dL 10/11/2024 12:44 AM [facility] Est Glomerular Filtration Rate - Female 109 mL/min/1. 73 m?? 10/11/2024 12:44 AM [facility] Comment: This patient's estimated GFR was [...] 11:50 PM EST 10/11/2024 12:07 AM EST Librado Patel MD CHEMISTRY ORDERABLES [facility] [place] [address] * (ABNORMAL) CBC (with Diff) (10/10/2024 11:50 PM EST) White Blood Cell 9.97(H) 4.00 - 9.50 x10(3)/mc L 10/11/2024 12:12 AM EST [facility] Red Blood Cell 3.59(L) 4.00 - 5.21 x10(6)/mc L 10/11/2024 12:12 AM [facility] Hemoglobin 10.9(L) 11.7 - 15.5 g/dL 10/11/2024 12:12 AM EST [facility] Hematocrit 33.9(L) 35.7 - 45.8 % 10/11/2024 12:12 AM [facility] Mean Cell Volume 94.4 82.6 - 94.4 fL 10/11/2024 12:12 AM [facility] Mean Cell Hemoglobin 30.4 27.1 - 32.0 pg 10/11/2024 12:12 AM [facility] Mean Cell Hemoglobin Concentration 32.2 31.7 - 35.0 g/dL 10/11/2024 12:12 AM [facility] Platelet 260 145 - 357 x10(3)/mc L 10/11/2024 12:12 AM [facility] Mean Platelet Volume 10.4 7.6 - 12.9 fL 10/11/2024 12:12 AM [facility] RDW Standard Deviation 51.0(H) 37.0 - 46.0 fL 10/11/2024 12:12 AM [facility] RDW coefficient of variation 14.7(H) 11.5 - 14.1 % 10/11/2024 12:12 AM [facility] NRBC% auto 0.0 % 10/11/2024 12:12 AM [facility] NRBC Absolute <0.01 <0.01 x10(3)/mc L 10/11/2024 12:12 AM [facility] Neutrophil % 75.2 % 10/11/2024 12:12 AM [facility] Neutrophil Absolute (ANC) - Automated 7.49(H) 1.70 - 6.10 x10(3)/mc L 10/11/2024 12:12 AM [facility] Lymph % 13.3 % 10/11/2024 12:12 AM [facility] Lymph Absolute 1.33 0.90 - 3.20 x10(3)/mc L 10/11/2024 12:12 AM [facility] Monocyte % 6.9 % 10/11/2024 12:12 AM [facility] Monocyte Absolute 0.69 0.30 - 0.90 x10(3)/mc L 10/11/2024 12:12 AM [facility] Eos % 3.4 % 10/11/2024 12:12 AM [facility] Eos Absolute 0.34 0.00 - 0.40 x10(3)/mc L 10/11/2024 12:12 AM [facility] Basophil % 0.1 % 10/11/2024 12:12 AM [facility] Baso Absolute <0.04 0.00 - 0.10 x10(3)/mc L 10/11/2024 12:12 AM [facility] Immature Gran % 1.1 % 12:12 AM [facility] Immature Gran Absolute 0.11(H) 0.00 - 0.04 x10(3)/mc L 10/11/2024 12:12 AM [facility] Blood VENOUS BLOOD SPECIMEN / Unknown Venipuncture / Unknown 10/10/2024 11:50 PM EST 10/11/2024 12:07 AM EST Librado Patel MD HEMATOLOGY ORDERABLE S [facility] [place] [address] * TSH Morris (10/10/2024 11:50 PM EST) Thyroid Stimulating Hormone 2.14 0.27 - 4.20 mcIU/mL 10/11/2024 12:44 AM EST [facility] Comment: Reference Interval (mcIU/mL): ?? Females: ? First Trimester: 0.23-3.88 ? Second Trimester: 0.22-3.90 ? Third Trimester: 0.44-4.66 Blood VENOUS BLOOD SPECIMEN / Unknown Venipuncture / Unknown 10/10/2024 11:50 PM EST 10/11/2024 12:07 AM EST Karli Morales MD CHEMISTRY ORDERABLES Performing Organization Address City/[facility]/ZIP Co de Phone Number [facility] [place] [address] * POC, GLUCOSE (10/10/2024 8:37 PM EST) Glucometer, POC 182 65 - 199 mg/dL 10/10/2024 8:37 PM EST [facility] Comment:Supplemental ranges: <140 mg/dL before meals <180 mg/dL all other times of the day. Blood CAPILLARY BLOOD / Unknown 10/10/2024 8:37 PM EST 10/10/2024 8:37 PM EST Karli Morales MD POINT OF CARE TEST O RDERABLES Performing Organization Address [facility] Co de Phone Number [facility] [place] [address] * POC, GLUCOSE (10/10/2024 5:30 PM EST) Glucometer, POC 99 65 - 199 mg/dL 10/10/2024 5:30 PM EST [facility] Comment:Supplemental ranges: <140 mg/dL before meals <180 mg/dL all other times of the day. Blood CAPILLARY BLOOD / Unknown 10/10/2024 5:30 PM EST 10/10/2024 5:30 PM EST Karli Morales MD POINT OF CARE TEST O RDERAASHLIE [facility] [place] [address] * POC, GLUCOSE (10/10/2024 12:30 PM EST) Glucometer, POC 169 65 - 199 mg/dL 10/10/2024 12:30 PM EST [facility] Comment:Supplemental ranges: <140 mg/dL before meals <180 mg/dL all other times of the day. Blood CAPILLARY BLOOD / Unknown 10/10/2024 12:30 PM EST 10/10/2024 12:31 PM EST Karli Morales MD POINT OF CARE TEST O ALDO Performing Organization Address City/[facility] Co de Phone Number [facility] [place] [address] * POC, GLUCOSE (10/10/2024 8:12 AM EST) Glucometer, POC 136 65 - 199 mg/dL 10/10/2024 8:13 AM EST [facility] Comment:Supplemental ranges: <140 mg/dL before meals <180 mg/dL all other times of the day. Blood CAPILLARY BLOOD / Unknown 10/10/2024 8:12 AM EST 10/10/2024 8:13 AM EST Karli Morales MD POINT OF CARE TEST O ALDO Performing Organization Address [facility] Co de Phone Number [facility] [place] [address] * POC, GLUCOSE (10/10/2024 3:57 AM EST) Glucometer, POC 126 65 - 199 mg/dL 10/10/2024 3:57 AM EST [facility] Comment:Supplemental ranges: <140 mg/dL before meals <180 mg/dL all other times of the day. Blood CAPILLARY BLOOD / Unknown 10/10/2024 3:57 AM EST 10/10/2024 3:57 AM EST Karli Morales MD POINT OF CARE TEST O ALDO Performing Organization Address City/[facility] Co de Phone Number [facility] [place] [address] * Phosphorus (10/10/2024 12:44 AM EST) Phosphorus 3.1 2.5 - 4.5 mg/dL 10/10/2024 1:21 AM EST [facility] Blood VENOUS BLOOD SPECIMEN / Unknown Venipuncture / Unknown 10/10/2024 12:44 AM EST 10/10/2024 12:53 AM EST Librado Patel MD CHEMISTRY ORDERABLES Performing Organization Address City/[facility]/ZIP Co de Phone Number [facility] [place] [address] * Magnesium (10/10/2024 12:44 AM EST) Magnesium 0.78 0.69 - 1.07 mMol/L 10/10/2024 1:21 AM [facility] Blood VENOUS BLOOD SPECIMEN / Unknown Venipuncture / Unknown 10/10/2024 12:44 AM EST 10/10/2024 12:53 AM EST Librado Patel MD CHEMISTRY ORDERABLES Performing Organization Address City/[facility]/ZIP Co de Phone Number [facility] [place] [address] * (ABNORMAL) Basic Metabolic Panel (10/10/2024 12:44 AM EST) Glucose 195 65 - 199 mg/dL 10/10/2024 1:21 AM [facility] Comment:Glucose Concentratio n >=200 mg/dL plus symptoms is consistent with Diabetes Mellitus. Blood Urea Nitrogen 22(H) 8 - 18 mg/dL 10/10/2024 1:21 AM [facility] Creatinine 0.34(L) 0.70 - 1.20 mg/dL 10/10/2024 1:21 AM [facility] Sodium 138 135 - 145 mMol/L 10/10/2024 1:21 AM [facility] Potassium 4.2 3.5 - 5.0 mMol/L 10/10/2024 1:21 AM [facility] Chloride 101 98 - 107 mMol/L 10/10/2024 1:21 AM [facility] Carbon Dioxide 26 22 - 31 mMol/L 10/10/2024 1:21 AM EST [facility] Anion Gap 11 5 - 15 mMol/L 10/10/2024 1:21 AM EST [facility] Calcium 9.2 8.5 - 10.5 mg/dL 10/10/2024 1:21 AM EST [facility] Est Glomerular Filtration Rate - Female 110 mL/min/1. 73 m?? 10/10/2024 1:21 AM EST [facility] Comment: [...] SPECIMEN / Unknown Venipuncture / Unknown 10/10/2024 12:44 AM EST 10/10/2024 12:53 AM EST Librado Patel MD CHEMISTRY ORDERABLES [facility] [place] [address] * (ABNORMAL) CBC (with Diff) (10/10/2024 12:44 AM EST) White Blood Cell 10.15(H) 4.00 - 9.50 x10(3)/mc L 10/10/2024 12:57 AM EST [facility] Red Blood Cell 3.71(L) 4.00 - 5.21 x10(6)/mc L 10/10/2024 12:57 AM EST [facility] Hemoglobin 11.3(L) 11.7 - 15.5 g/dL 10/10/2024 12:57 AM EST [facility] Hematocrit 34.7(L) 35.7 - 45.8 % 10/10/2024 12:57 AM [facility] Mean Cell Volume 93.5 82.6 - 94.4 fL 10/10/2024 12:57 AM [facility] Mean Cell Hemoglobin 30.5 27.1 - 32.0 pg 10/10/2024 12:57 AM [facility] Mean Cell Hemoglobin Concentration 32.6 31.7 - 35.0 g/dL 10/10/2024 12:57 AM [facility] Platelet 230 145 - 357 x10(3)/mc L 10/10/2024 12:57 AM [facility] Mean Platelet Volume 10.3 7.6 - 12.9 fL 10/10/2024 12:57 AM [facility] RDW Standard Deviation 50.0(H) 37.0 - 46.0 fL 10/10/2024 12:57 AM [facility] RDW coefficient of variation 14.7(H) 11.5 - 14.1 % 10/10/2024 12:57 AM [facility] NRBC% auto 0.0 % 10/10/2024 12:57 AM [facility] NRBC Absolute <0.01 <0.01 x10(3)/mc L 10/10/2024 12:57 AM [facility] Neutrophil % 71.5 % 10/10/2024 12:57 AM [facility] Neutrophil Absolute (ANC) - Automated 7.26(H) 1.70 - 6.10 x10(3)/mc L 10/10/2024 12:57 AM [facility] Lymph % 16.9 % 10/10/2024 12:57 AM [facility] Lymph Absolute 1.72 0.90 - 3.20 x10(3)/mc L 10/10/2024 12:57 AM [facility] Monocyte % 7.6 % 10/10/2024 12:57 AM [facility] Monocyte Absolute 0.77 0.30 - 0.90 x10(3)/mc L 10/10/2024 12:57 AM [facility] Eos % 3.0 % 10/10/2024 12:57 AM [facility] Eos Absolute 0.30 0.00 - 0.40 x10(3)/mc L 10/10/2024 12:57 AM [facility] Basophil % 0.3 % 10/10/2024 12:57 AM [facility] Baso Absolute <0.04 0.00 - 0.10 x10(3)/mc L 10/10/2024 12:57 AM [facility] Immature Gran % 0.7 % 12:57 AM [facility]. [facility] Immature Gran Absolute 0.07(H) 0.00 - 0.04 x10(3)/mc L 10/10/2024 12:57 AM [facility] Blood VENOUS BLOOD SPECIMEN / Unknown Venipuncture / Unknown 10/10/2024 12:44 AM EST 10/10/2024 12:52 AM EST Librado Patel MD HEMATOLOGY ORDERABLE S [facility] [place] [address] * POC, GLUCOSE (10/09/2024 8:07 PM EST) Glucometer, POC 159 65 - 199 mg/dL 10/09/2024 8:08 PM EST [facility] Comment:Supplemental ranges: <140 mg/dL before meals <180 mg/dL all other times of the day. Blood CAPILLARY BLOOD / Unknown 10/09/2024 8:07 PM EST 10/09/2024 8:08 PM EST Karli Morales MD POINT OF CARE TEST O RDERABLES [facility] [place] [address] * POC, GLUCOSE (10/09/2024 4:39 PM EST) Glucometer, POC 153 65 - 199 mg/dL 10/09/2024 4:39 PM EST [facility] Comment:Supplemental ranges: <140 mg/dL before meals <180 mg/dL all other times of the day. Blood CAPILLARY BLOOD / Unknown 10/09/2024 4:39 PM EST 10/09/2024 4:39 PM EST Karli Morales MD POINT OF CARE TEST O ALDO Performing Organization Address City/[facility]/ZIP Co de Phone Number [facility] [place] [address] * POC, GLUCOSE (10/09/2024 11:37 AM EST) Glucometer, POC 162 65 - 199 mg/dL 10/09/2024 11:37 AM EST [facility] Comment:Supplemental ranges: <140 mg/dL before meals <180 mg/dL all other times of the day. Blood CAPILLARY BLOOD / Unknown 10/09/2024 11:37 AM EST 10/09/2024 11:37 AM EST Karli Morales MD POINT OF CARE TEST Yi CARLSON [facility] [place] [address] * (ABNORMAL) Urine culture (10/09/2024 10:43 AM EST) Urine Culture Greater than 50,000 cfu/mL Escherichia coli(A) VITEK 2 METHOD 10/12/2024 8:32 AM EST [facility] Urine Culture Greater than 50,000 cfu/mL Raoultella ornithinolytica (A) VITEK 2 METHOD 10/12/2024 8:32 AM EST [facility] Urine URINE SPECIMEN OBTAINED VIA [...] ug/ml: Susceptible Karli Morales MD MICROBIOLOGY - [facility] ORDERABLES Performing Organization Address [facility]/ZIP Co de Phone Number [facility] [place] [address] * (ABNORMAL) Urinalysis Microscopic with Reflex to Culture (10/09/2024 10:43 AM EST) Bacteria, Urine Many(A) None /HPF 11:01 AM [facility] RBC, Urine 2 0 - 4 /HPF 10/09/2024 11:01 AM [facility] WBC, Urine >=100(H) 0 - 5 /HPF 10/09/2024 11:01 AM [facility] Squamous Epithelial Cells, Urine 0 0 - 5 /HPF 10/09/2024 11:01 AM [facility] Hyaline Casts, Urine 1 0 - 2 /LPF 10/09/2024 11:01 AM [facility] CULTURE ADDED? Yes 10/09/2024 11:01 AM [facility] Urine URINE SPECIMEN OBTAINED VIA STRAIGHT CATHETER / Unknown Non Blood Collection / Unknown 10/09/2024 10:43 AM EST 10/09/2024 10:49 AM EST Karli Morales MD URINE ORDERABLES Performing Organization Address City/[facility]/ZIP Co de Phone Number [facility] [place] [address] * (ABNORMAL) Urinalysis with reflex Culture (10/09/2024 10:43 AM EST) Glucose, Urine Dipstick Negative Negative 10/09/2024 11:01 AM [facility] Protein, Urine Dipstick Trace(A) Negative 10/09/2024 11:01 AM EST [facility] Bilirubin, Urine Dipstick Negative Negative 10/09/2024 11:01 AM [facility] Comment:Clinical correlation required for positive Urine Bilirubin results as false positive may occur with some drugs and drug related products. If a false positive is suspected a serum total bilirubin should be considered if clinically indicated. Urobilinogen, Urine Dipstick Normal Normal, 0.2 mg/dL, 1.0 mg/dL 10/09/2024 11:01 AM [facility] pH, Urine (dipstick) 7.5 5.0 - 8.0 10/09/2024 11:01 AM [facility] Blood, Urine Dipstick Trace(A) Negative 10/09/2024 11:01 AM [facility] Ketone, Urine Dipstick Negative Negative 10/09/2024 11:01 AM [facility] Nitrite, Urine Dipstick Positive(A) Negative 10/09/2024 11:01 AM [facility] Leukocytes, Urine Dipstick Large(A) Negative 10/09/2024 11:01 AM [facility] Specific [place] Urine Automated 1.017 1.005 - 1.030 10/09/2024 11:01 AM [facility] Appearance, Urine Dipstick Turbid(A) Clear 10/09/2024 11:01 AM [facility] Color, Urine Dipstick Yellow Yellow, Dark Yellow 10/09/2024 11:01 AM [facility] CULTURE ADDED? Yes 10/09/2024 11:01 AM [facility] Urine URINE SPECIMEN OBTAINED VIA STRAIGHT CATHETER / Unknown Non Blood Collection / Unknown 10/09/2024 10:43 AM EST 10/09/2024 10:49 AM EST Karli Morales MD URINE ORDERABLES [facility] [place] [address] * POC, GLUCOSE (10/09/2024 7:44 AM EST) Glucometer, POC 147 65 - 199 mg/dL 10/09/2024 7:44 AM EST [facility] Comment:Supplemental ranges: <140 mg/dL before meals <180 mg/dL all other times of the day. Blood CAPILLARY BLOOD / Unknown 10/09/2024 7:44 AM EST 10/09/2024 7:44 AM EST Karli Morales MD POINT OF CARE TEST O ALDO [facility] [place] [address] * POC, GLUCOSE (10/09/2024 1:06 AM EST) Glucometer, POC 149 65 - 199 mg/dL 10/09/2024 1:08 AM EST [facility] Comment:Supplemental ranges: <140 mg/dL before meals <180 mg/dL all other times of the day. Blood CAPILLARY BLOOD / Unknown 10/09/2024 1:06 AM EST 10/09/2024 1:08 AM EST Karli Morales MD POINT OF CARE TEST O ALDO Performing Organization Address City/[facility]/ZIP Co de Phone Number [facility] [place] [address] * Phosphorus (10/09/2024 12:59 AM EST) Phosphorus 3.5 2.5 - 4.5 mg/dL 10/09/2024 1:46 AM EST [facility] Blood VENOUS BLOOD SPECIMEN / Unknown Venipuncture / Unknown 10/09/2024 12:59 AM EST 10/09/2024 1:16 AM EST Librado Patel MD CHEMISTRY ORDERABLES [facility] [place] [address] * Magnesium (10/09/2024 12:59 AM EST) Pathologist [facility] Magnesium 0.81 0.69 - 1.07 mMol/L 10/09/2024 1:46 AM [facility] Blood VENOUS BLOOD SPECIMEN / Unknown Venipuncture / Unknown 10/09/2024 12:59 AM EST 10/09/2024 1:16 AM EST Librado Patel MD CHEMISTRY ORDERABLES [facility] [place] [address] * (ABNORMAL) Basic Metabolic Panel (10/09/2024 12:59 AM EST) Pathologist [facility] Glucose 159 65 - 199 mg/dL 10/09/2024 1:46 AM [facility] Comment:Glucose Concentratio n >=200 mg/dL plus symptoms is consistent with Diabetes Mellitus. Blood Urea Nitrogen 25(H) 8 - 18 mg/dL 10/09/2024 1:46 AM [facility] Creatinine 0.36(L) 0.70 - 1.20 mg/dL 10/09/2024 1:46 AM [facility] Sodium 140 135 - 145 mMol/L 10/09/2024 1:46 AM [facility] Potassium 4.2 3.5 - 5.0 mMol/L 10/09/2024 1:46 AM [facility] Chloride 102 98 - 107 mMol/L 10/09/2024 1:46 AM [facility] Carbon Dioxide 28 22 - 31 mMol/L 10/09/2024 1:46 AM [facility] Anion Gap 10 5 - 15 mMol/L 10/09/2024 1:46 AM [facility] Calcium 9.5 8.5 - 10.5 mg/dL 10/09/2024 1:46 AM [facility] Est Glomerular Filtration Rate - Female 108 mL/min/1. 73 m?? 10/09/2024 1:46 AM [facility] Comment: This patient's estimated GFR was [...] BLOOD SPECIMEN / Unknown Venipuncture / Unknown 10/09/2024 12:59 AM EST 10/09/2024 1:16 AM EST Librado Patel MD CHEMISTRY ORDERABLES [facility] [place] [address] * (ABNORMAL) CBC (with Diff) (10/09/2024 12:59 AM EST) White Blood Cell 12.45(H) 4.00 - 9.50 x10(3)/mc L 10/09/2024 1:27 AM [facility] Red Blood Cell 3.42(L) 4.00 - 5.21 x10(6)/mc L 10/09/2024 1:27 AM [facility] Hemoglobin 10.4(L) 11.7 - 15.5 g/dL 10/09/2024 1:27 AM [facility] Hematocrit 32.1(L) 35.7 - 45.8 % 10/09/2024 1:27 AM [facility] Mean Cell Volume 93.9 82.6 - 94.4 fL 10/09/2024 1:27 AM [facility] Mean Cell Hemoglobin 30.4 27.1 - 32.0 pg 10/09/2024 1:27 AM [facility] Mean Cell Hemoglobin Concentration 32.4 31.7 - 35.0 g/dL 10/09/2024 1:27 AM [facility] Platelet 207 145 - 357 x10(3)/mc L 10/09/2024 1:27 AM [facility] Mean Platelet Volume 10.4 7.6 - 12.9 fL 10/09/2024 1:27 AM [facility] RDW Standard Deviation 49.9(H) 37.0 - 46.0 fL 10/09/2024 1:27 AM [facility] RDW coefficient of variation 14.6(H) 11.5 - 14.1 % 10/09/2024 1:27 AM [facility] NRBC% auto 0.0 % 10/09/2024 1:27 AM [facility] NRBC Absolute <0.01 <0.01 x10(3)/mc L 10/09/2024 1:27 AM [facility] Neutrophil % 80.1 % 10/09/2024 1:27 AM [facility] Neutrophil Absolute (ANC) - Automated 9.95(H) 1.70 - 6.10 x10(3)/mc L 10/09/2024 1:27 AM [facility] Lymph % 10.9 % 10/09/2024 1:27 AM [facility] Lymph Absolute 1.36 0.90 - 3.20 x10(3)/mc L 10/09/2024 1:27 AM [facility] Monocyte % 6.4 % 10/09/2024 1:27 AM [facility] Monocyte Absolute 0.80 0.30 - 0.90 x10(3)/mc L 10/09/2024 1:27 AM [facility] Eos % 1.8 % 10/09/2024 1:27 AM [facility] Eos Absolute 0.23 0.00 - 0.40 x10(3)/mc L 10/09/2024 1:27 AM [facility] Basophil % 0.2 % 10/09/2024 1:27 AM EST [facility] Baso Absolute <0.04 0.00 - 0.10 x10(3)/mc L 10/09/2024 1:27 AM [facility] Immature Gran % 0.6 % 1:27 AM [facility] Immature Gran Absolute 0.08(H) 0.00 - 0.04 x10(3)/mc L 10/09/2024 1:27 AM EST [facility] Blood VENOUS BLOOD SPECIMEN / Unknown Venipuncture / Unknown 10/09/2024 12:59 AM EST 10/09/2024 1:16 AM EST Librado Patel MD HEMATOLOGY ORDERABLE S Performing Organization Address [facility]/ZIP Co de Phone Number [facility] [place] [address] * POC, GLUCOSE (10/08/2024 8:35 PM EST) Glucometer, POC 175 65 - 199 mg/dL 10/08/2024 8:35 PM EST [facility] Comment:Supplemental ranges: <140 mg/dL before meals <180 mg/dL all other times of the day. Blood CAPILLARY BLOOD / Unknown 10/08/2024 8:35 PM EST 10/08/2024 8:36 PM EST Karli Morales MD POINT OF CARE TEST O RDERABLES [facility] [place] [address] * POC, GLUCOSE (10/08/2024 4:41 PM EST) Glucometer, POC 177 65 - 199 mg/dL 10/08/2024 4:41 PM EST [facility] Comment:Supplemental ranges: <140 mg/dL before meals <180 mg/dL all other times of the day. Blood CAPILLARY BLOOD / Unknown 10/08/2024 4:41 PM EST 10/08/2024 4:42 PM EST Karli Morales MD POINT OF CARE TEST O RDERABLES [facility] [place] [address] * XR Fluoro Esophagram (Modified/Video Swallow Pharynx) (10/08/2024 4:10 PM EST) WORKSTATION ID [id number] [facility] Anatomical Region Laterality Modality N/A Radio Fluoroscop [...] who have questions please contact the health ocular care technician that requested your imaging first. ? Electronically signed by: Victor Manuel Smith MD, [facility] ([phone]), at 10/08/2024 4:49 PM Narrative 10/08/2024 4:49 [...] patients who have questions please contactthe health ocular care technician that requested your imaging first. Electronically signed by: Victor Manuel Smith MD, [facility]([phone]), at 10/08/2024 4:49 PM Karli Morales MD IMG FLUORO ORDERABLE S * POC, GLUCOSE (10/08/2024 12:49 PM EST) [facility] Glucometer, POC 176 65 - 199 mg/dL 10/08/2024 12:50 PM EST [facility] Comment:Supplemental ranges: <140 mg/dL before meals <180 mg/dL all other times of the day. Blood CAPILLARY BLOOD / Unknown 10/08/2024 12:49 PM EST 10/08/2024 12:50 PM EST Karli Morales MD POINT OF CARE TEST O ALDO Performing Organization Address City/[facility]/ZIP Co de Phone Number [facility] [place] [address] * POC, GLUCOSE (10/08/2024 8:26 AM EST) Glucometer, POC 123 65 - 199 mg/dL 10/08/2024 8:26 AM EST [facility] Comment:Supplemental ranges: <140 mg/dL before meals <180 mg/dL all other times of the day. Blood CAPILLARY BLOOD / Unknown 10/08/2024 8:26 AM EST 10/08/2024 8:26 AM EST Karli Morales MD POINT OF CARE TEST O ALDO Performing Organization Address [facility] Co de Phone Number [facility] [place] [address] * POC, GLUCOSE (10/08/2024 4:15 AM EST) Glucometer, POC 135 65 - 199 mg/dL 10/08/2024 4:15 AM EST [facility] Comment:Supplemental ranges: <140 mg/dL before meals <180 mg/dL all other times of the day. Blood CAPILLARY BLOOD / Unknown 10/08/2024 4:15 AM EST 10/08/2024 4:15 AM EST Karli Morales MD POINT OF CARE TEST O ALDO Performing Organization Address City/[facility]/ZIP Co de Phone Number [facility] [place] [address] * Phosphorus (10/08/2024 1:13 AM EST) Phosphorus 3.3 2.5 - 4.5 mg/dL 10/08/2024 2:06 AM EST [facility] Blood VENOUS BLOOD SPECIMEN / Unknown Venipuncture / Unknown 10/08/2024 1:13 AM EST 10/08/2024 1:34 AM EST Librado Patel MD CHEMISTRY ORDERABLES [facility] [place] [address] * Magnesium (10/08/2024 1:13 AM EST) Magnesium 0.79 0.69 - 1.07 mMol/L 10/08/2024 2:06 AM [facility] Blood VENOUS BLOOD SPECIMEN / Unknown Venipuncture / Unknown 10/08/2024 1:13 AM EST 10/08/2024 1:34 AM EST Librado Patel MD CHEMISTRY ORDERABLES Performing Organization Address City/[facility] Co de Phone Number [facility] [place] [address] * (ABNORMAL) Basic Metabolic Panel (10/08/2024 1:13 AM EST) Glucose 186 65 - 199 mg/dL 10/08/2024 2:06 AM [facility] Comment:Glucose Concentratio n >=200 mg/dL plus symptoms is consistent with Diabetes Mellitus. Blood Urea Nitrogen 26(H) 8 - 18 mg/dL 10/08/2024 2:06 AM [facility] Creatinine 0.39(L) 0.70 - 1.20 mg/dL 10/08/2024 2:06 AM [facility] Sodium 138 135 - 145 mMol/L 10/08/2024 2:06 AM [facility] Potassium 4.4 3.5 - 5.0 mMol/L 10/08/2024 2:06 AM [facility] Chloride 104 98 - 107 mMol/L 10/08/2024 2:06 AM [facility] Carbon Dioxide 27 22 - 31 mMol/L 10/08/2024 2:06 AM [facility] Anion Gap 7 5 - 15 mMol/L 10/08/2024 2:06 AM EST [facility] Calcium 8.9 8.5 - 10.5 mg/dL 10/08/2024 2:06 AM EST [facility] Est Glomerular Filtration Rate - Female 106 mL/min/1. 73 m?? 10/08/2024 2:06 AM EST [facility] Comment: [...] BLOOD SPECIMEN / Unknown Venipuncture / Unknown 10/08/2024 1:13 AM EST 10/08/2024 1:34 AM EST Librado Patel MD CHEMISTRY ORDERABLES [facility] [place] [address] * (ABNORMAL) CBC (with Diff) (10/08/2024 1:13 AM EST) White Blood Cell 11.43(H) 4.00 - 9.50 x10(3)/mc L 10/08/2024 1:39 AM EST [facility] Red Blood Cell 3.30(L) 4.00 - 5.21 x10(6)/mc L 10/08/2024 1:39 AM EST [facility] Hemoglobin 10.0(L) 11.7 - 15.5 g/dL 10/08/2024 1:39 AM EST [facility] Hematocrit 31.2(L) 35.7 - 45.8 % 10/08/2024 1:39 AM [facility] Mean Cell Volume 94.5(H) 82.6 - 94.4 fL 10/08/2024 1:39 AM [facility] Mean Cell Hemoglobin 30.3 27.1 - 32.0 pg 10/08/2024 1:39 AM [facility] Mean Cell Hemoglobin Concentration 32.1 31.7 - 35.0 g/dL 10/08/2024 1:39 AM [facility] Platelet 190 145 - 357 x10(3)/mc L 10/08/2024 1:39 AM [facility] Mean Platelet Volume 9.9 7.6 - 12.9 fL 10/08/2024 1:39 AM [facility] RDW Standard Deviation 52.3(H) 37.0 - 46.0 fL 10/08/2024 1:39 AM [facility] RDW coefficient of variation 15.2(H) 11.5 - 14.1 % 10/08/2024 1:39 AM [facility] NRBC% auto 0.0 % 10/08/2024 1:39 AM [facility] NRBC Absolute <0.01 <0.01 x10(3)/mc L 10/08/2024 1:39 AM [facility] Neutrophil % 78.8 % 10/08/2024 1:39 AM [facility] Neutrophil Absolute (ANC) - Automated 9.01(H) 1.70 - 6.10 x10(3)/mc L 10/08/2024 1:39 AM [facility] Lymph % 11.9 % 10/08/2024 1:39 AM [facility] Lymph Absolute 1.36 0.90 - 3.20 x10(3)/mc L 10/08/2024 1:39 AM [facility] Monocyte % 5.9 % 10/08/2024 1:39 AM [facility] Monocyte Absolute 0.67 0.30 - 0.90 x10(3)/mc L 10/08/2024 1:39 AM EST [facility] Eos % 2.7 % 10/08/2024 1:39 AM [facility] Eos Absolute 0.31 0.00 - 0.40 x10(3)/mc L 10/08/2024 1:39 AM EST [facility] Basophil % 0.1 % 10/08/2024 1:39 AM [facility] Baso Absolute <0.04 0.00 - 0.10 x10(3)/mc L 10/08/2024 1:39 AM [facility] Immature Gran % 0.6 % 1:39 AM [facility] Immature Gran Absolute 0.07(H) 0.00 - 0.04 x10(3)/mc L 10/08/2024 1:39 AM [facility] Blood VENOUS BLOOD SPECIMEN / Unknown Venipuncture / Unknown 10/08/2024 1:13 AM EST 10/08/2024 1:34 AM EST Librado Patel MD HEMATOLOGY ORDERABLE S [facility] [place] [address] * POC, GLUCOSE (10/08/2024 1:07 AM EST) Glucometer, POC 171 65 - 199 mg/dL 10/08/2024 1:07 AM EST [facility] Comment:Supplemental ranges: <140 mg/dL before meals <180 mg/dL all other times of the day. Blood CAPILLARY BLOOD / Unknown 10/08/2024 1:07 AM EST 10/08/2024 1:07 AM EST Karli Morales MD POINT OF CARE TEST O RDERABLES [facility] [place] [address] * POC, GLUCOSE (10/07/2024 8:55 PM EST) Glucometer, POC 114 65 - 199 mg/dL 10/07/2024 8:55 PM EST [facility] Comment:Supplemental ranges: <140 mg/dL before meals <180 mg/dL all other times of the day. Blood CAPILLARY BLOOD / Unknown 10/07/2024 8:55 PM EST 10/07/2024 8:56 PM EST Karli Morales MD POINT OF CARE TEST O ALDO [facility] [place] [address] * POC, GLUCOSE (10/07/2024 4:29 PM EST) Glucometer, POC 178 65 - 199 mg/dL 10/07/2024 4:29 PM EST [facility] Comment:Supplemental ranges: <140 mg/dL before meals <180 mg/dL all other times of the day. Blood CAPILLARY BLOOD / Unknown 10/07/2024 4:29 PM EST 10/07/2024 4:29 PM EST Karli Morales MD POINT OF CARE TEST O ALDO Performing Organization Address City/[facility]/ZIP Co de Phone Number [facility] [place] [address] * CT Head wo Contrast (Generic) (10/07/2024 3:25 PM EST) WORKSTATION ID [id number] RAD Anatomical Region Laterality Modality Head Computed [...] who have questions please contact the health ocular care technician that requested your imaging first. ? Electronically signed by: Domingo Puentes [facility] ([phone]), at 10/07/2024 4:11 PM Narrative 10/07/2024 4:11 PM EST EXAMINATION: CT [...] patients who have questions please contactthe health ocular care technician that requested your imaging first. Electronically signed by: Domingo Puentes [facility]([phone]), at 10/07/2024 4:11 PM Karli Morales MD [facility] CT ORDERABLES * POC, GLUCOSE (10/07/2024 11:30 AM EST) [facility] Signature Glucometer, POC 169 65 - 199 mg/dL 10/07/2024 11:30 AM EST [facility] Comment:Supplemental ranges: <140 mg/dL before meals <180 mg/dL all other times of the day. Blood CAPILLARY BLOOD / Unknown 10/07/2024 11:30 AM EST 10/07/2024 11:30 AM EST Karli Morales MD POINT OF CARE TEST O RDERABLES Performing Organization Address City/State/[facility] Co de Phone Number [facility] [place] [address] * POC, GLUCOSE (10/07/2024 8:42 AM EST) Glucometer, POC 166 65 - 199 mg/dL 10/07/2024 8:42 AM EST [facility] Comment:Supplemental ranges: <140 mg/dL before meals <180 mg/dL all other times of the day. Blood CAPILLARY BLOOD / Unknown 10/07/2024 8:42 AM EST 10/07/2024 8:42 AM EST Karli Morales MD POINT OF CARE TEST O RDERABLES Performing Organization Address [facility] Co de Phone Number [facility] [place] [address] * POC, GLUCOSE (10/07/2024 4:17 AM EST) Glucometer, POC 175 65 - 199 mg/dL 10/07/2024 4:17 AM EST [facility] Comment:Supplemental ranges: <140 mg/dL before meals <180 mg/dL all other times of the day. Blood CAPILLARY BLOOD / Unknown 10/07/2024 4:17 AM EST 10/07/2024 4:17 AM EST Karli Morales MD POINT OF CARE TEST O RDERABLES Performing Organization Address City/[facility] Co de Phone Number [facility] [place] [address] * Phosphorus (10/07/2024 1:12 AM EST) Phosphorus 2.6 2.5 - 4.5 mg/dL 10/07/2024 1:58 AM EST [facility] Blood VENOUS BLOOD SPECIMEN / Unknown Venipuncture / Unknown 10/07/2024 1:12 AM EST 10/07/2024 1:32 AM EST Librado Patel MD CHEMISTRY ORDERABLES [facility] [place] [address] * Magnesium (10/07/2024 1:12 AM EST) Pathologist [facility] Magnesium 0.72 0.69 - 1.07 mMol/L 10/07/2024 1:58 AM [facility] Blood VENOUS BLOOD SPECIMEN / Unknown Venipuncture / Unknown 10/07/2024 1:12 AM EST 10/07/2024 1:32 AM EST Librado Patel MD CHEMISTRY ORDERABLES [facility] [place] [address] * (ABNORMAL) Basic Metabolic Panel (10/07/2024 1:12 AM EST) Pathologist [facility] Glucose 190 65 - 199 mg/dL 10/07/2024 1:58 AM [facility] Comment:Glucose Concentratio n >=200 mg/dL plus symptoms is consistent with Diabetes Mellitus. Blood Urea Nitrogen 17 8 - 18 mg/dL 10/07/2024 1:58 AM [facility] Creatinine 0.36(L) 0.70 - 1.20 mg/dL 10/07/2024 1:58 AM [facility] Sodium 138 135 - 145 mMol/L 10/07/2024 1:58 AM [facility] Potassium 4.0 3.5 - 5.0 mMol/L 10/07/2024 1:58 AM [facility] Chloride 102 98 - 107 mMol/L 10/07/2024 1:58 AM [facility] Carbon Dioxide 27 22 - 31 mMol/L 10/07/2024 1:58 AM [facility] Anion Gap 9 5 - 15 mMol/L 10/07/2024 1:58 AM [facility] Calcium 9.0 8.5 - 10.5 mg/dL 10/07/2024 1:58 AM EST [facility] Est Glomerular Filtration Rate - Female 108 mL/min/1. 73 m?? 10/07/2024 1:58 AM [facility] Comment: This patient's estimated GFR was [...] BLOOD SPECIMEN / Unknown Venipuncture / Unknown 10/07/2024 1:12 AM EST 10/07/2024 1:32 AM EST Librado Patel MD CHEMISTRY ORDERABLES [facility] [place] [address] * (ABNORMAL) CBC (with Diff) (10/07/2024 1:12 AM EST) White Blood Cell 15.48(H) 4.00 - 9.50 x10(3)/mc L 10/07/2024 1:36 AM [facility] Red Blood Cell 3.49(L) 4.00 - 5.21 x10(6)/mc L 10/07/2024 1:36 AM [facility] Hemoglobin 10.7(L) 11.7 - 15.5 g/dL 10/07/2024 1:36 AM [facility] Hematocrit 32.4(L) 35.7 - 45.8 % 10/07/2024 1:36 AM [facility] Mean Cell Volume 92.8 82.6 - 94.4 fL 10/07/2024 1:36 AM [facility] Mean Cell Hemoglobin 30.7 27.1 - 32.0 pg 10/07/2024 1:36 AM [facility] Mean Cell Hemoglobin Concentration 33.0 31.7 - 35.0 g/dL 10/07/2024 1:36 AM [facility] Platelet 211 145 - 357 x10(3)/mc L 10/07/2024 1:36 AM [facility] Mean Platelet Volume 10.0 7.6 - 12.9 fL 10/07/2024 1:36 AM [facility] RDW Standard Deviation 50.0(H) 37.0 - 46.0 fL 10/07/2024 1:36 AM [facility] RDW coefficient of variation 15.0(H) 11.5 - 14.1 % 10/07/2024 1:36 AM [facility] NRBC% auto 0.0 % 10/07/2024 1:36 AM [facility] NRBC Absolute <0.01 <0.01 x10(3)/mc L 10/07/2024 1:36 AM [facility] Neutrophil % 85.0 % 10/07/2024 1:36 AM [facility] Neutrophil Absolute (ANC) - Automated 13.16(H) 1.70 - 6.10 x10(3)/mc L 10/07/2024 1:36 AM [facility] Lymph % 8.3 % 10/07/2024 1:36 AM [facility] Lymph Absolute 1.29 0.90 - 3.20 x10(3)/mc L 10/07/2024 1:36 AM [facility] Monocyte % 5.0 % 10/07/2024 1:36 AM [facility] Monocyte Absolute 0.78 0.30 - 0.90 x10(3)/mc L 10/07/2024 1:36 AM [facility] Eos % 1.1 % 10/07/2024 1:36 AM [facility] Eos Absolute 0.17 0.00 - 0.40 x10(3)/mc L 10/07/2024 1:36 AM EST [facility] Basophil % 0.1 % 10/07/2024 1:36 AM [facility] Baso Absolute <0.04 0.00 - 0.10 x10(3)/mc L 10/07/2024 1:36 AM EST [facility] Immature Gran % 0.5 % 1:36 AM [facility] Immature Gran Absolute 0.07(H) 0.00 - 0.04 x10(3)/mc L 10/07/2024 1:36 AM [facility] Blood VENOUS BLOOD SPECIMEN / Unknown Venipuncture / Unknown 10/07/2024 1:12 AM EST 10/07/2024 1:32 AM EST Librado Patel MD HEMATOLOGY ORDERABLE S [facility] [place] [address] * POC, GLUCOSE (10/07/2024 1:00 AM EST) Glucometer, POC 177 65 - 199 mg/dL 10/07/2024 1:00 AM EST [facility] Comment:Supplemental ranges: <140 mg/dL before meals <180 mg/dL all other times of the day. Blood CAPILLARY BLOOD / Unknown 10/07/2024 1:00 AM EST 10/07/2024 1:00 AM EST Karli Morales MD POINT OF CARE TEST O RDERABLES [facility] [place] [address] * POC, GLUCOSE (10/06/2024 8:40 PM EST) Glucometer, POC 163 65 - 199 mg/dL 10/06/2024 8:40 PM EST [facility] Comment:Supplemental ranges: <140 mg/dL before meals <180 mg/dL all other times of the day. Blood CAPILLARY BLOOD / Unknown 10/06/2024 8:40 PM EST 10/06/2024 8:40 PM EST Karli Morales MD POINT OF CARE TEST O ALDO Performing Organization Address [facility] Co de Phone Number [facility] [place] [address] * POC, GLUCOSE (10/06/2024 4:20 PM EST) Glucometer, POC 175 65 - 199 mg/dL 10/06/2024 4:20 PM EST [facility] Comment:Supplemental ranges: <140 mg/dL before meals <180 mg/dL all other times of the day. Blood CAPILLARY BLOOD / Unknown 10/06/2024 4:20 PM EST 10/06/2024 4:21 PM EST Karli Morales MD POINT OF CARE TEST Yi CARLSON Performing Organization Address [facility] de Phone Number [facility] [place] [address] * (ABNORMAL) Troponin-T, High Sensitivity 1 Hour (10/06/2024 12:41 PM EST) Troponin-T, High Sensitivity 18(H) <=14 ng/L 10/06/2024 [...] troponin value can be found in the [facility] Test Catalog Troponin - https://[email or web address].org/catalogs/565/files/59490 Reference: Fourth Orange Definition of Myocardial Infarction. Journal of the [place] [employer] 2018;72:9272-0338 Troponin-T, HS 1 hr delta 3 ng/L [...] MD CHEMISTRY ORDERABLES [facility] [place] [address] * POC, GLUCOSE (10/06/2024 12:24 PM EST) Glucometer, POC 155 65 - 199 mg/dL 10/06/2024 12:24 PM EST [facility] Comment:Supplemental ranges: <140 mg/dL before meals <180 mg/dL all other times of the day. Blood CAPILLARY BLOOD / Unknown 10/06/2024 12:24 PM EST 10/06/2024 12:24 PM EST Karli Morales MD POINT OF CARE TEST O RDERABLES [facility] [place] [address] * (ABNORMAL) Troponin-T, High Sensitivity (10/06/2024 11:13 AM EST) Troponin-T, High Sensitivity Initial 21(H) <=14 ng/L [...] troponin value can be found in the [facility] Test Catalog Troponin - https://[facility]-.testcatalog.org/catalogs/565/files/28523 Reference: Fourth Orange Definition of Myocardial Infarction. Journal of the [employer] 2018;72:1586-0176 Blood VENOUS BLOOD SPECIMEN / Unknown Venipuncture / Unknown 10/06/2024 11:13 AM EST 10/06/2024 11:17 AM EST Karli Morales MD CHEMISTRY ORDERABLES [facility] [place] [address] * XR Chest One View (10/06/2024 10:59 AM EST) Pathologist [employer] WORKSTATION ID [id number] RAD Anatomical Region Laterality Modality Chest N/A Digital Radiogra phy Impressions 10/06/2024 3:00 PM EST Improved but persistent retrocardiac patchy opacity which is favored to represent atelectasis although underlying acute infectious/inflammatory process cannot be excluded. I have personally reviewed the image(s) and the resident's interpretation and agree with the findings, MICHELLE ARSHAD MD at 10/06/2024 3:00 PM Thank you for letting us participate in the care of this patient. ??If you are a health care provider and have any questions regarding this report, please contact the number below. ??For patients who have questions please contact the health ocular care technician that requested your imaging first. ? Electronically signed by: MICHELLE ARSHAD MD, [facility] ([phone]), at 10/06/2024 3:00 PM Narrative 10/06/2024 3:00 PM EST EXAMINATION: XR [...] No acute osseous abnormalities. Procedure Note Michelle Arshad MD - 10/06/2024 EXAMINATION: XR CHEST ONE [...] resident's interpretationand agree with the findings, MICHELLE ARSHAD MD at 10/06/2024 3:00 PM Thank you for letting us participate in the care of this patient. If youare a health care provider and have any questions regarding this report,please contact the number below. For patients who have questions please contactthe health ocular care technician that requested your imaging first. Electronically signed by: MICHELLE ARSHAD MD, [facility]([phone]), at 10/06/2024 3:00 PM Karli Morales MD IMG DX ORDERABLES * POC, GLUCOSE (10/06/2024 8:42 AM EST) Glucometer, POC 169 65 - 199 mg/dL 10/06/2024 8:42 AM EST [facility] Comment:Supplemental ranges: <140 mg/dL before meals <180 mg/dL all other times of the day. Blood CAPILLARY BLOOD / Unknown 10/06/2024 8:42 AM EST 10/06/2024 8:42 AM EST Gissell Velazco MD POINT OF CARE TEST ORDERABLES Performing Organization Address City/State/[facility] Co de Phone Number [facility] [place] [address] * POC, GLUCOSE (10/06/2024 7:34 AM EST) Glucometer, POC 175 65 - 199 mg/dL 10/06/2024 7:34 AM EST [facility] Comment:Supplemental ranges: <140 mg/dL before meals <180 mg/dL all other times of the day. Blood CAPILLARY BLOOD / Unknown 10/06/2024 7:34 AM EST 10/06/2024 7:34 AM EST Gissell Velazco MD POINT OF CARE TEST ORDERABLES [facility] [place] [address] * POC, GLUCOSE (10/06/2024 4:33 AM EST) Glucometer, POC 147 65 - 199 mg/dL 10/06/2024 4:33 AM EST [facility] Comment:Supplemental ranges: <140 mg/dL before meals <180 mg/dL all other times of the day. Blood CAPILLARY BLOOD / Unknown 10/06/2024 4:33 AM EST 10/06/2024 4:34 AM EST Gissell Velazco MD POINT OF CARE TEST ORDERABLES Performing Organization Address City/[facility] Co de Phone Number [facility] [place] [address] * POC, GLUCOSE (10/06/2024 3:55 AM EST) Glucometer, POC 149 65 - 199 mg/dL 10/06/2024 3:56 AM EST [facility] Comment:Supplemental ranges: <140 mg/dL before meals <180 mg/dL all other times of the day. Blood CAPILLARY BLOOD / Unknown 10/06/2024 3:55 AM EST 10/06/2024 3:56 AM EST Gissell Velazco MD POINT OF CARE TEST ORDERABLES [facility] [place] [address] * Phosphorus (10/06/2024 12:33 AM EST) Phosphorus 2.5 2.5 - 4.5 mg/dL 10/06/2024 12:56 AM EST [facility] Blood VENOUS BLOOD SPECIMEN / Unknown Venipuncture / Unknown 10/06/2024 12:33 AM EST 10/06/2024 12:37 AM EST Librado Patel MD CHEMISTRY ORDERABLES [facility] [place] [address] * Magnesium (10/06/2024 12:33 AM EST) Magnesium 0.73 0.69 - 1.07 mMol/L 10/06/2024 12:56 AM [facility] Blood VENOUS BLOOD SPECIMEN / Unknown Venipuncture / Unknown 10/06/2024 12:33 AM EST 10/06/2024 12:37 AM EST Librado Patel MD CHEMISTRY ORDERABLES Performing Organization Address City/[facility]/ZIP Co de Phone Number [facility] [place] [address] * (ABNORMAL) Basic Metabolic Panel (10/06/2024 12:33 AM EST) Glucose 211(H) 65 - 199 mg/dL 10/06/2024 12:56 AM [facility] Comment:Glucose Concentratio n >=200 mg/dL plus symptoms is consistent with Diabetes Mellitus. Blood Urea Nitrogen 21(H) 8 - 18 mg/dL 10/06/2024 12:56 AM [facility] Creatinine 0.45(L) 0.70 - 1.20 mg/dL 10/06/2024 12:56 AM [facility] Sodium 138 135 - 145 mMol/L 10/06/2024 12:56 AM [facility] Potassium 4.3 3.5 - 5.0 mMol/L 10/06/2024 12:56 AM [facility] Chloride 101 98 - 107 mMol/L 10/06/2024 12:56 AM [facility] Carbon Dioxide 26 22 - 31 mMol/L 10/06/2024 12:56 AM EST [facility] Anion Gap 11 5 - 15 mMol/L 10/06/2024 12:56 AM EST [facility] Calcium 9.0 8.5 - 10.5 mg/dL 10/06/2024 12:56 AM EST [facility] Est Glomerular Filtration Rate - Female 102 mL/min/1. 73 m?? 10/06/2024 12:56 AM EST [facility] Comment: [...] SPECIMEN / Unknown Venipuncture / Unknown 10/06/2024 12:33 AM EST 10/06/2024 12:37 AM EST Librado Patel MD CHEMISTRY ORDERABLES [facility] [place] [address] * (ABNORMAL) CBC (with Diff) (10/06/2024 12:33 AM EST) White Blood Cell 16.59(H) 4.00 - 9.50 x10(3)/mc L 10/06/2024 12:42 AM EST [facility] Red Blood Cell 3.51(L) 4.00 - 5.21 x10(6)/mc L 10/06/2024 12:42 AM EST [facility] Hemoglobin 10.8(L) 11.7 - 15.5 g/dL 10/06/2024 12:42 AM EST [facility] Hematocrit 32.9(L) 35.7 - 45.8 % 10/06/2024 12:42 AM [facility] Mean Cell Volume 93.7 82.6 - 94.4 fL 10/06/2024 12:42 AM [facility] Mean Cell Hemoglobin 30.8 27.1 - 32.0 pg 10/06/2024 12:42 AM [facility] Mean Cell Hemoglobin Concentration 32.8 31.7 - 35.0 g/dL 10/06/2024 12:42 AM [facility] Platelet 237 145 - 357 x10(3)/mc L 10/06/2024 12:42 AM [facility] Mean Platelet Volume 9.8 7.6 - 12.9 fL 10/06/2024 12:42 AM [facility] RDW Standard Deviation 50.4(H) 37.0 - 46.0 fL 10/06/2024 12:42 AM [facility] RDW coefficient of variation 14.8(H) 11.5 - 14.1 % 10/06/2024 12:42 AM [facility] NRBC% auto 0.0 % 10/06/2024 12:42 AM [facility] NRBC Absolute <0.01 <0.01 x10(3)/mc L 10/06/2024 12:42 AM [facility] Neutrophil % 86.8 % 10/06/2024 12:42 AM [facility] Neutrophil Absolute (ANC) - Automated 14.40(H) 1.70 - 6.10 x10(3)/mc L 10/06/2024 12:42 AM [facility] Lymph % 6.5 % 10/06/2024 12:42 AM [facility] Lymph Absolute 1.08 0.90 - 3.20 x10(3)/mc L 10/06/2024 12:42 AM [facility] Monocyte % 5.0 % 10/06/2024 12:42 AM [facility] Monocyte Absolute 0.83 0.30 - 0.90 x10(3)/mc L 10/06/2024 12:42 AM EST [facility] Eos % 1.0 % 10/06/2024 12:42 AM EST [facility] Eos Absolute 0.16 0.00 - 0.40 x10(3)/mc L 10/06/2024 12:42 AM EST [facility] Basophil % 0.1 % 10/06/2024 12:42 AM [facility] Baso Absolute <0.04 0.00 - 0.10 x10(3)/mc L 10/06/2024 12:42 AM [facility] Immature Gran % 0.6 % 12:42 AM [facility] Immature Gran Absolute 0.10(H) 0.00 - 0.04 x10(3)/mc L 10/06/2024 12:42 AM [facility] Blood VENOUS BLOOD SPECIMEN / Unknown Venipuncture / Unknown 10/06/2024 12:33 AM EST 10/06/2024 12:38 AM EST Librado Patel MD [place] [address] * (ABNORMAL) POC, GLUCOSE (10/06/2024 12:14 AM EST) [facility] Signature Glucometer, POC 200(H) 65 - 199 mg/dL 10/06/2024 12:15 AM EST [facility] Comment:Supplemental ranges: <140 mg/dL before meals <180 mg/dL all other times of the day. Blood CAPILLARY BLOOD / Unknown 10/06/2024 12:14 AM EST 10/06/2024 12:15 AM EST Gissell Velazco MD POINT OF CARE TEST ORDERABLES [facility] [place] [address] * POC, GLUCOSE (10/05/2024 8:33 PM EST) Glucometer, POC 129 65 - 199 mg/dL 10/05/2024 8:33 PM EST [facility] Comment:Supplemental ranges: <140 mg/dL before meals <180 mg/dL all other times of the day. Blood CAPILLARY BLOOD / Unknown 10/05/2024 8:33 PM EST 10/05/2024 8:34 PM EST Gissell Velazco MD POINT OF CARE TEST ORDERABLES [facility] [place] [address] * POC, GLUCOSE (10/05/2024 4:59 PM EST) Glucometer, POC 185 65 - 199 mg/dL 10/05/2024 4:59 PM EST [facility] Comment:Supplemental ranges: <140 mg/dL before meals <180 mg/dL all other times of the day. Blood CAPILLARY BLOOD / Unknown 10/05/2024 4:59 PM EST 10/05/2024 5:00 PM EST Gissell Velazco MD POINT OF CARE TEST ORDERABLES [facility] [place] [address] * POC, GLUCOSE (10/05/2024 12:40 PM EST) Glucometer, POC 137 65 - 199 mg/dL 10/05/2024 12:40 PM EST [facility] Comment:Supplemental ranges: <140 mg/dL before meals <180 mg/dL all other times of the day. Blood CAPILLARY BLOOD / Unknown 10/05/2024 12:40 PM EST 10/05/2024 12:40 PM EST Gissell Velazco MD POINT OF CARE TEST ORDERABLES Performing Organization Address [facility] Co de Phone Number [facility] [place] [address] * POC, GLUCOSE (10/05/2024 8:53 AM EST) Glucometer, POC 160 65 - 199 mg/dL 10/05/2024 8:53 AM EST [facility] Comment:Supplemental ranges: <140 mg/dL before meals <180 mg/dL all other times of the day. Blood CAPILLARY BLOOD / Unknown 10/05/2024 8:53 AM EST 10/05/2024 8:54 AM EST Gissell Velazco MD POINT OF CARE TEST ORDERABLES Performing Organization Address [facility] de Phone Number [facility] [place] [address] * POC, GLUCOSE (10/05/2024 4:11 AM EST) Glucometer, POC 181 65 - 199 mg/dL 10/05/2024 4:12 AM EST [facility] Comment:Supplemental ranges: <140 mg/dL before meals <180 mg/dL all other times of the day. Blood CAPILLARY BLOOD / Unknown 10/05/2024 4:11 AM EST 10/05/2024 4:12 AM EST Gissell Velazco MD POINT OF CARE TEST ORDERABLES Performing Organization Address City/[facility] Co de Phone Number [facility] [place] [address] * Sedimentation rate (10/05/2024 12:08 AM EST) Sedimentation Rate Automated 40 3 - 46 mm/hr 10/05/2024 6:34 AM EST [facility] Blood VENOUS BLOOD SPECIMEN / Unknown Venipuncture / Unknown 10/05/2024 12:08 AM EST 10/05/2024 12:17 AM EST Gissell Velazco MD HEMATOLOGY ORDERAB LES Performing Organization Address City/[facility]/[place] [address] * (ABNORMAL) CRP, acute inflammation (10/05/2024 12:08 AM EST) C-Reactive Protein 8.6(H) <=4.9 mg/L 10/05/2024 6:11 AM EST [facility] Blood VENOUS BLOOD SPECIMEN / Unknown Venipuncture / Unknown 10/05/2024 12:08 AM EST 10/05/2024 12:17 AM EST Gissell Velazco MD CHEMISTRY ORDERABL ES Performing Organization Address [facility] [place] [address] * Phosphorus (10/05/2024 12:08 AM EST) Phosphorus 4.1 2.5 - 4.5 mg/dL 10/05/2024 12:46 AM EST [facility] Blood VENOUS BLOOD SPECIMEN / Unknown Venipuncture / Unknown 10/05/2024 12:08 AM EST 10/05/2024 12:17 AM EST Librado Patel MD CHEMISTRY ORDERABLES Performing Organization Address City/[facility]/ZIP Co de Phone Number [facility] [place] [address] * Magnesium (10/05/2024 12:08 AM EST) Magnesium 0.85 0.69 - 1.07 mMol/L 10/05/2024 12:46 AM EST [facility] Blood VENOUS BLOOD SPECIMEN / Unknown Venipuncture / Unknown 10/05/2024 12:08 AM EST 10/05/2024 12:17 AM EST Librado Patel MD CHEMISTRY ORDERABLES [facility] [place] [address] * (ABNORMAL) Basic Metabolic Panel (10/05/2024 12:08 AM EST) Glucose 136 65 - 199 mg/dL 10/05/2024 12:46 AM [facility] Comment:Glucose Concentratio n >=200 mg/dL plus symptoms is consistent with Diabetes Mellitus. Blood Urea Nitrogen 24(H) 8 - 18 mg/dL 10/05/2024 12:46 AM [facility] Creatinine 0.36(L) 0.70 - 1.20 mg/dL 10/05/2024 12:46 AM [facility] Sodium 139 135 - 145 mMol/L 10/05/2024 12:46 AM [facility] Potassium 4.2 3.5 - 5.0 mMol/L 10/05/2024 12:46 AM [facility] Chloride 103 98 - 107 mMol/L 10/05/2024 12:46 AM [facility] Carbon Dioxide 29 22 - 31 mMol/L 10/05/2024 12:46 AM [facility] Anion Gap 7 5 - 15 mMol/L 10/05/2024 12:46 AM [facility] Calcium 9.1 8.5 - 10.5 mg/dL 10/05/2024 12:46 AM [facility] Est Glomerular Filtration Rate - Female 108 mL/min/1. 73 m?? 10/05/2024 12:46 AM [facility] Comment: This patient's estimated GFR was [...] 12:08 AM EST 10/05/2024 12:17 AM EST Librado Patel MD CHEMISTRY ORDERABLES [facility] [place] [address] * (ABNORMAL) CBC (with Diff) (10/05/2024 12:08 AM EST) White Blood Cell 13.56(H) 4.00 - 9.50 x10(3)/mc L 10/05/2024 12:35 AM [facility] Red Blood Cell 3.55(L) 4.00 - 5.21 x10(6)/mc L 10/05/2024 12:35 AM [facility] Hemoglobin 10.8(L) 11.7 - 15.5 g/dL 10/05/2024 12:35 AM [facility] Hematocrit 33.5(L) 35.7 - 45.8 % 10/05/2024 12:35 AM [facility] Mean Cell Volume 94.4 82.6 - 94.4 fL 10/05/2024 12:35 AM [facility] Mean Cell Hemoglobin 30.4 27.1 - 32.0 pg 10/05/2024 12:35 AM [facility] Mean Cell Hemoglobin Concentration 32.2 31.7 - 35.0 g/dL 10/05/2024 12:35 AM [facility] Platelet 241 145 - 357 x10(3)/mc L 10/05/2024 12:35 AM [facility] Mean Platelet Volume 10.3 7.6 - 12.9 fL 10/05/2024 12:35 AM [facility] RDW Standard Deviation 50.0(H) 37.0 - 46.0 fL 10/05/2024 12:35 AM [facility] RDW coefficient of variation 14.6(H) 11.5 - 14.1 % 10/05/2024 12:35 AM [facility] NRBC% auto 0.0 % 10/05/2024 12:35 AM [facility] NRBC Absolute <0.01 <0.01 x10(3)/mc L 10/05/2024 12:35 AM [facility] Neutrophil % 86.3 % 10/05/2024 12:35 AM [facility] Neutrophil Absolute (ANC) - Automated 11.69(H) 1.70 - 6.10 x10(3)/mc L 10/05/2024 12:35 AM [facility] Lymph % 5.5 % 10/05/2024 12:35 AM [facility] Lymph Absolute 0.75(L) 0.90 - 3.20 x10(3)/mc L 10/05/2024 12:35 AM [facility] Monocyte % 5.8 % 10/05/2024 12:35 AM [facility] Monocyte Absolute 0.79 0.30 - 0.90 x10(3)/mc L 10/05/2024 12:35 AM [facility] Eos % 1.6 % 10/05/2024 12:35 AM [facility] Eos Absolute 0.22 0.00 - 0.40 x10(3)/mc L 10/05/2024 12:35 AM [facility] Basophil % 0.1 % 10/05/2024 12:35 AM [facility] Baso Absolute <0.04 0.00 - 0.10 x10(3)/mc L 10/05/2024 12:35 AM [facility] Immature Gran % 0.7 % 12:35 AM [facility] Immature Gran Absolute 0.09(H) 0.00 - 0.04 x10(3)/mc L 10/05/2024 12:35 AM EST [facility] Blood VENOUS BLOOD SPECIMEN / Unknown Venipuncture / Unknown 10/05/2024 12:08 AM EST 10/05/2024 12:17 AM EST Librado Patel MD HEMATOLOGY ORDERABLE S [facility] [place] [address] * POC, GLUCOSE (10/04/2024 11:47 PM EST) Glucometer, POC 127 65 - 199 mg/dL 10/04/2024 11:47 PM EST [facility] Comment:Supplemental ranges: <140 mg/dL before meals <180 mg/dL all other times of the day. Blood CAPILLARY BLOOD / Unknown 10/04/2024 11:47 PM EST 10/04/2024 11:47 PM EST Gissell Velazco MD POINT OF CARE TEST ORDERABLES Performing Organization Address City/[facility]/ZIP Co de Phone Number [facility] [place] [place] [address] * MRI Brain wwo Contrast (Generic) (10/04/2024 10:30 PM EST) WORKSTATION ID [id number] RAD Anatomical Region Laterality Modality Head Magnetic [...] who have questions please contact the health ocular care technician that requested your imaging first. ? Electronically signed by: Armando Pan MD, [facility] ([phone]), at 10/05/2024 12:31 AM Narrative 10/05/2024 12:31 AM EST EXAMINATION: MRI [...] patients who have questions please contactthe health ocular care technician that requested your imaging first. Electronically signed by: Armando Pan MD, [facility]([phone]), at 10/05/2024 12:31 AM Gissell Velazco MD IMG MRI ORDERABLES * POC, GLUCOSE (10/04/2024 7:31 PM EST) Glucometer, POC 119 65 - 199 mg/dL 10/04/2024 7:31 PM EST [facility] Comment:Supplemental ranges: <140 mg/dL before meals <180 mg/dL all other times of the day. Blood CAPILLARY BLOOD / Unknown 10/04/2024 7:31 PM EST 10/04/2024 7:31 PM EST Gissell Velazco MD POINT OF CARE TEST ORDERABLES Performing Organization Address City/[facility] Co de Phone Number [facility] [place] [place] [address] * POC, GLUCOSE (10/04/2024 4:53 PM EST) Glucometer, POC 119 65 - 199 mg/dL 10/04/2024 4:54 PM EST [facility] Comment:Supplemental ranges: <140 mg/dL before meals <180 mg/dL all other times of the day. Blood CAPILLARY BLOOD / Unknown 10/04/2024 4:53 PM EST 10/04/2024 4:54 PM EST Gissell Velazco MD POINT OF CARE TEST ORDERABLES Performing Organization Address City/[facility] Co de Phone Number [facility] [place] [address] * IR G-Tube Placement (10/04/2024 1:00 PM [...] Gissell Velazco MD IMG IR ORDERABLES * POC, GLUCOSE (10/04/2024 8:12 AM EST) Glucometer, POC 127 65 - 199 mg/dL 10/04/2024 8:12 AM EST [facility] Comment:Supplemental ranges: <140 mg/dL before meals <180 mg/dL all other times of the day. Blood CAPILLARY BLOOD / Unknown 10/04/2024 8:12 AM EST 10/04/2024 8:12 AM EST Gissell Velazco MD POINT OF CARE TEST ORDERABLES Performing Organization Address [facility] Co de Phone Number [facility] [place] [address] * POC, GLUCOSE (10/04/2024 3:59 AM EST) Glucometer, POC 102 65 - 199 mg/dL 10/04/2024 3:59 AM EST [facility] Comment:Supplemental ranges: <140 mg/dL before meals <180 mg/dL all other times of the day. Blood CAPILLARY BLOOD / Unknown 10/04/2024 3:59 AM EST 10/04/2024 3:59 AM EST Gissell Velazco MD POINT OF CARE TEST ORDERABLES Performing Organization Address City/[facility] Co de Phone Number [facility] [place] [address] * CT Head wo Contrast (Generic) (10/04/2024 1:40 AM EST) WORKSTATION ID [id number] RAD Anatomical Region Laterality Modality Head Computed Tomogra phy Impressions 10/04/2024 2:12 AM EST 1. ??Overall interval improvement of the mass effect on the right hemisphere with evolution of blood products within the parenchyma post craniotomy. 2. ??Mild interval increase in extra-axial fluid inferior margin of the craniotomy. 3. ??Mild interval increase in size of third and lateral ventricles as well as peripheral CSF spaces 4. ??No new hemorrhage or infarction Thank you for letting us participate in the care of this patient. ??If you are a health care provider and have any questions regarding this report, please contact the number below. ??For patients who have questions please contact the health ocular care technician that requested your imaging first. ? Electronically signed by: Armando Pan MD, [facility] ([phone]), at 10/04/2024 2:12 AM Narrative 10/04/2024 2:12 AM EST EXAMINATION: CT HEAD WO CONTRAST (GENERIC) CLINICAL HISTORY: leakage from crani incision site TECHNIQUE: CT head performed without intravenous contrast administration. COMPARISON: 09/26/2024 FINDINGS: Similar appearance of right-sided craniotomy. There is soft tissue swelling overlying the craniotomy, greater inferiorly with focal low-attenuation consistent with extra-axial fluid seen at the inferior margin of the craniotomy on image 56 of series 3, increased over prior exam. There is clear appearance of the visualized mastoid air cells, middle ear cavities, and paranasal sinuses. There is evolution of blood products seen at the right inferior lateral temporal lobe. There is evolving hemorrhage seen in the right posterior temporal and right parietal lobe without similar pattern of extensive edema in the right temporal lobe, posterior basal ganglia white matter, and right parietal lobe. There is effacement of sulci in the right hemisphere which is decreased compared to prior exam of 09/26/2024. There is interval decrease mass effect on the right lateral ventricle and interval mild decrease in subfalcine herniation. There is interval mild enlargement of the third and lateral ventricles. No new hemorrhage or infarction is identified. Procedure Note Armando Pan MD - 10/04/2024 EXAMINATION: CT HEAD WO CONTRAST (GENERIC) CLINICAL HISTORY: leakage from crani incision site TECHNIQUE: CT head performed without intravenous contrast administration. COMPARISON: 09/26/2024 FINDINGS: Similar appearance of right-sided craniotomy. There is soft tissueswelling overlying the craniotomy, greater inferiorly with focal low-attenuation consistent with extra-axial fluid seen at the inferior margin of thecraniotomy on image 56 of series 3, increased over prior exam. There is clear appearance of the visualized mastoid air cells, middleear cavities, and paranasal sinuses. There is evolution of blood products seen at the right inferior lateraltemporal lobe. There is evolving hemorrhage seen in the right posterior temporaland right parietal lobe without similar pattern of extensive edema in theright temporal lobe, posterior basal ganglia white matter, and right parietallobe. There is effacement of sulci in the right hemisphere which is decreasedcompared to prior exam of 09/26/2024. There is interval decrease mass effect on the right lateral ventricleand interval mild decrease in subfalcine herniation. There is interval mild enlargement of the third and lateral ventricles. No new hemorrhage or infarction is identified. IMPRESSION 1. Overall interval improvement of the mass effect on the righthemisphere with evolution of blood products within the parenchyma post craniotomy. 2. Mild interval increase in extra-axial fluid inferior margin of the craniotomy. 3. Mild interval increase in size of third and lateral ventricles as wellas peripheral CSF spaces 4. No new hemorrhage or infarction Thank you for letting us participate in the care of this patient. If youare a health care provider and have any questions regarding this report,please contact the number below. For patients who have questions please contactthe health ocular care technician that requested your imaging first. Electronically signed by: Armadno Pan MD, [facility]([phone]), at 10/04/2024 2:12 AM Gissell Velazco MD IMG CT ORDERABLES * Phosphorus (10/04/2024 12:29 AM EST) Phosphorus 2.6 2.5 - 4.5 mg/dL 10/04/2024 1:03 AM EST [facility] Blood VENOUS BLOOD SPECIMEN / Unknown Venipuncture / Unknown 10/04/2024 12:29 AM EST 10/04/2024 12:35 AM EST Librado Patel MD CHEMISTRY ORDERABLES Performing Organization Address City/[facility]/ZIP Co de Phone Number [facility] [place] [address] * Magnesium (10/04/2024 12:29 AM EST) Magnesium 0.80 0.69 - 1.07 mMol/L 10/04/2024 1:03 AM [facility] Blood VENOUS BLOOD SPECIMEN / Unknown Venipuncture / Unknown 10/04/2024 12:29 AM EST 10/04/2024 12:35 AM EST Librado Patel MD CHEMISTRY ORDERABLES [facility] [place] [address] * (ABNORMAL) Basic Metabolic Panel (10/04/2024 12:29 AM EST) Glucose 166 65 - 199 mg/dL 10/04/2024 1:03 AM [facility] Comment:Glucose Concentratio n >=200 mg/dL plus symptoms is consistent with Diabetes Mellitus. Blood Urea Nitrogen 24(H) 8 - 18 mg/dL 10/04/2024 1:03 AM [facility] Creatinine 0.36(L) 0.70 - 1.20 mg/dL 10/04/2024 1:03 AM [facility] Sodium 142 135 - 145 mMol/L 10/04/2024 1:03 AM [facility] Potassium 4.1 3.5 - 5.0 mMol/L 10/04/2024 1:03 AM [facility] Chloride 106 98 - 107 mMol/L 10/04/2024 1:03 AM [facility] Carbon Dioxide 26 22 - 31 mMol/L 10/04/2024 1:03 AM [facility] Anion Gap 10 5 - 15 mMol/L 10/04/2024 1:03 AM [facility] Calcium 8.9 8.5 - 10.5 mg/dL 10/04/2024 1:03 AM [facility] Est Glomerular Filtration Rate - Female 108 mL/min/1. 73 m?? 10/04/2024 1:03 AM [facility] Comment: This patient's estimated GFR was [...] BLOOD SPECIMEN / Unknown Venipuncture / Unknown 10/04/2024 12:29 AM EST 10/04/2024 12:35 AM EST Librado Patel MD CHEMISTRY ORDERABLES Performing Organization Address City/State/[facility] Co de Phone Number [facility] [place] [address] * (ABNORMAL) CBC (with Diff) (10/04/2024 12:29 AM EST) White Blood Cell 14.67(H) 4.00 - 9.50 x10(3)/mc L 10/04/2024 12:40 AM [facility] Red Blood Cell 3.46(L) 4.00 - 5.21 x10(6)/mc L 10/04/2024 12:40 AM [facility] Hemoglobin 10.4(L) 11.7 - 15.5 g/dL 10/04/2024 12:40 AM [facility] Hematocrit 32.8(L) 35.7 - 45.8 % 10/04/2024 12:40 AM [facility] Mean Cell Volume 94.8(H) 82.6 - 94.4 fL 10/04/2024 12:40 AM [facility] Mean Cell Hemoglobin 30.1 27.1 - 32.0 pg 10/04/2024 12:40 AM [facility] Mean Cell Hemoglobin Concentration 31.7 31.7 - 35.0 g/dL 10/04/2024 12:40 AM [facility] Platelet 303 145 - 357 x10(3)/mc L 10/04/2024 12:40 AM [facility] Mean Platelet Volume 9.8 7.6 - 12.9 fL 10/04/2024 12:40 AM [facility] RDW Standard Deviation 50.2(H) 37.0 - 46.0 fL 10/04/2024 12:40 AM [facility] RDW coefficient of variation 14.6(H) 11.5 - 14.1 % 10/04/2024 12:40 AM [facility] NRBC% auto 0.0 % 10/04/2024 12:40 AM [facility] NRBC Absolute <0.01 <0.01 x10(3)/mc L 10/04/2024 12:40 AM [facility] Neutrophil % 85.3 % 10/04/2024 12:40 AM [facility] Neutrophil Absolute (ANC) - Automated 12.52(H) 1.70 - 6.10 x10(3)/mc L 10/04/2024 12:40 AM [facility] Lymph % 6.6 % 10/04/2024 12:40 AM [facility] Lymph Absolute 0.97 0.90 - 3.20 x10(3)/mc L 10/04/2024 12:40 AM [facility] Monocyte % 6.1 % 10/04/2024 12:40 AM EST [facility] Monocyte Absolute 0.89 0.30 - 0.90 x10(3)/mc L 10/04/2024 12:40 AM EST [facility] Eos % 1.3 % 10/04/2024 12:40 AM [facility] Eos Absolute 0.19 0.00 - 0.40 x10(3)/mc L 10/04/2024 12:40 AM EST [facility] Basophil % 0.1 % 10/04/2024 12:40 AM [facility] Baso Absolute <0.04 0.00 - 0.10 x10(3)/mc L 10/04/2024 12:40 AM [facility] Immature Gran % 0.6 % 12:40 AM [facility] Immature Gran Absolute 0.09(H) 0.00 - 0.04 x10(3)/mc L 10/04/2024 12:40 AM [facility] Blood VENOUS BLOOD SPECIMEN / Unknown Venipuncture / Unknown 10/04/2024 12:29 AM EST 10/04/2024 12:35 AM EST Librado Patel MD HEMATOLOGY ORDERABLE S Performing Organization Address City/State/[facility] Co de Phone Number [facility] [place] [address] * POC, GLUCOSE (10/04/2024 12:06 AM EST) [facility] Signature Glucometer, POC 158 65 - 199 mg/dL 10/04/2024 12:06 AM EST [facility] Comment:Supplemental ranges: <140 mg/dL before meals <180 mg/dL all other times of the day. Blood CAPILLARY BLOOD / Unknown 10/04/2024 12:06 AM EST 10/04/2024 12:06 AM EST Gissell Velazco MD POINT OF CARE TEST ORDERABLES Performing Organization Address City/State/[facility] Co de Phone Number [facility] [place] [address] * POC, GLUCOSE (10/03/2024 7:47 PM EST) Glucometer, POC 180 65 - 199 mg/dL 10/03/2024 7:48 PM EST [facility] Comment:Supplemental ranges: <140 mg/dL before meals <180 mg/dL all other times of the day. Blood CAPILLARY BLOOD / Unknown 10/03/2024 7:47 PM EST 10/03/2024 7:48 PM EST Gissell Velazco MD POINT OF CARE TEST ORDERABLES Performing Organization Address [facility] de Phone Number [facility] [place] [address] * POC, GLUCOSE (10/03/2024 3:49 PM EST) Glucometer, POC 157 65 - 199 mg/dL 10/03/2024 3:50 PM EST [facility] Comment:Supplemental ranges: <140 mg/dL before meals <180 mg/dL all other times of the day. Blood CAPILLARY BLOOD / Unknown 10/03/2024 3:49 PM EST 10/03/2024 3:50 PM EST Gissell Velazco MD POINT OF CARE TEST ORDERABLES Performing Organization Address City/[facility] Co de Phone Number [facility] [place] [address] * POC, GLUCOSE (10/03/2024 11:24 AM EST) Glucometer, POC 149 65 - 199 mg/dL 10/03/2024 11:24 AM EST [facility] Comment:Supplemental ranges: <140 mg/dL before meals <180 mg/dL all other times of the day. Blood CAPILLARY BLOOD / Unknown 10/03/2024 11:24 AM EST 10/03/2024 11:25 AM EST Gissell Velazco MD POINT OF CARE TEST ORDERABLES Performing Organization Address City/[facility]/ZIP Co de Phone Number [facility] [place] [address] * POC, GLUCOSE (10/03/2024 8:00 AM EST) Glucometer, POC 141 65 - 199 mg/dL 10/03/2024 8:00 AM EST [facility] Comment:Supplemental ranges: <140 mg/dL before meals <180 mg/dL all other times of the day. Blood CAPILLARY BLOOD / Unknown 10/03/2024 8:00 AM EST 10/03/2024 8:01 AM EST Gissell Velazco MD POINT OF CARE TEST ORDERABLES Performing Organization Address [facility] Co de Phone Number [facility] [place] [address] * Phosphorus (10/03/2024 4:05 AM EST) Phosphorus 2.7 2.5 - 4.5 mg/dL 10/03/2024 4:53 AM EST [facility] Blood VENOUS BLOOD SPECIMEN / Unknown Venipuncture / Unknown 10/03/2024 4:05 AM EST 10/03/2024 4:26 AM EST Librado Patel MD CHEMISTRY ORDERABLES [facility] [place] [address] * Magnesium (10/03/2024 4:05 AM EST) Magnesium 0.88 0.69 - 1.07 mMol/L 10/03/2024 4:53 AM EST [facility] Blood VENOUS BLOOD SPECIMEN / Unknown Venipuncture / Unknown 10/03/2024 4:05 AM EST 10/03/2024 4:26 AM EST Librado Patel MD CHEMISTRY ORDERABLES [facility] [place] [address] * (ABNORMAL) Basic Metabolic Panel (10/03/2024 4:05 AM EST) Glucose 199 65 - 199 mg/dL 10/03/2024 4:53 AM [facility] Comment:Glucose Concentratio n >=200 mg/dL plus symptoms is consistent with Diabetes Mellitus. Blood Urea Nitrogen 22(H) 8 - 18 mg/dL 10/03/2024 4:53 AM [facility] Creatinine 0.35(L) 0.70 - 1.20 mg/dL 10/03/2024 4:53 AM [facility] Sodium 146(H) 135 - 145 mMol/L 10/03/2024 4:53 AM [facility] Potassium 4.0 3.5 - 5.0 mMol/L 10/03/2024 4:53 AM [facility] Chloride 108(H) 98 - 107 mMol/L 10/03/2024 4:53 AM [facility] Carbon Dioxide 30 22 - 31 mMol/L 10/03/2024 4:53 AM [facility] Anion Gap 8 5 - 15 mMol/L 10/03/2024 4:53 AM [facility] Calcium 9.1 8.5 - 10.5 mg/dL 10/03/2024 4:53 AM [facility] Est Glomerular Filtration Rate - Female 109 mL/min/1. 73 m?? 10/03/2024 4:53 AM [facility] Comment: This patient's estimated GFR was [...] BLOOD SPECIMEN / Unknown Venipuncture / Unknown 10/03/2024 4:05 AM EST 10/03/2024 4:26 AM EST Librado Patel MD CHEMISTRY ORDERABLES [facility] [place] [address] * (ABNORMAL) CBC (with Diff) (10/03/2024 4:05 AM EST) White Blood Cell 15.33(H) 4.00 - 9.50 x10(3)/mc L 10/03/2024 4:29 AM [facility] Red Blood Cell 3.44(L) 4.00 - 5.21 x10(6)/mc L 10/03/2024 4:29 AM [facility] Hemoglobin 10.5(L) 11.7 - 15.5 g/dL 10/03/2024 4:29 AM [facility] Hematocrit 32.4(L) 35.7 - 45.8 % 10/03/2024 4:29 AM [facility] Mean Cell Volume 94.2 82.6 - 94.4 fL 10/03/2024 4:29 AM [facility] Mean Cell Hemoglobin 30.5 27.1 - 32.0 pg 10/03/2024 4:29 AM [facility] Mean Cell Hemoglobin Concentration 32.4 31.7 - 35.0 g/dL 10/03/2024 4:29 AM [facility] Platelet 359(H) 145 - 357 x10(3)/mc L 10/03/2024 4:29 AM [facility] Mean Platelet Volume 9.8 7.6 - 12.9 fL 10/03/2024 4:29 AM [facility] RDW Standard Deviation 49.1(H) 37.0 - 46.0 fL 10/03/2024 4:29 AM [facility] RDW coefficient of variation 14.6(H) 11.5 - 14.1 % 10/03/2024 4:29 AM [facility] NRBC% auto 0.0 % 10/03/2024 4:29 AM [facility] NRBC Absolute <0.01 <0.01 x10(3)/mc L 10/03/2024 4:29 AM [facility] Neutrophil % 87.6 % 10/03/2024 4:29 AM [facility] Neutrophil Absolute (ANC) - Automated 13.43(H) 1.70 - 6.10 x10(3)/mc L 10/03/2024 4:29 AM [facility] Lymph % 5.0 % 10/03/2024 4:29 AM [facility] Lymph Absolute 0.77(L) 0.90 - 3.20 x10(3)/mc L 10/03/2024 4:29 AM [facility] Monocyte % 5.9 % 10/03/2024 4:29 AM [facility] Monocyte Absolute 0.90 0.30 - 0.90 x10(3)/mc L 10/03/2024 4:29 AM [facility] Eos % 0.7 % 10/03/2024 4:29 AM [facility] Eos Absolute 0.11 0.00 - 0.40 x10(3)/mc L 10/03/2024 4:29 AM [facility] Basophil % 0.1 % 10/03/2024 4:29 AM [facility] Baso Absolute <0.04 0.00 - 0.10 x10(3)/mc L 10/03/2024 4:29 AM [facility] Immature Gran % 0.7 % 4:29 AM EST [facility] Immature Gran Absolute 0.10(H) 0.00 - 0.04 x10(3)/mc L 10/03/2024 4:29 AM EST [facility] Blood VENOUS BLOOD SPECIMEN / Unknown Venipuncture / Unknown 10/03/2024 4:05 AM EST 10/03/2024 4:26 AM EST Librado Patel MD HEMATOLOGY ORDERABLE S [facility] [place] [address] * POC, GLUCOSE (10/03/2024 4:03 AM EST) Glucometer, POC 179 65 - 199 mg/dL 10/03/2024 4:04 AM EST [facility] Comment:Supplemental ranges: <140 mg/dL before meals <180 mg/dL all other times of the day. Blood CAPILLARY BLOOD / Unknown 10/03/2024 4:03 AM EST 10/03/2024 4:04 AM EST Gissell Velazco MD POINT OF CARE TEST ORDERABLES Performing Organization Address City/[facility] Co de Phone Number [facility] [place] [address] * POC, GLUCOSE (10/02/2024 11:39 PM EST) Glucometer, POC 159 65 - 199 mg/dL 10/02/2024 11:39 PM EST [facility] Comment:Supplemental ranges: <140 mg/dL before meals <180 mg/dL all other times of the day. Blood CAPILLARY BLOOD / Unknown 10/02/2024 11:39 PM EST 10/02/2024 11:39 PM EST Gissell Velazco MD POINT OF CARE TEST ORDERABLES [facility] [place] [address] * POC, GLUCOSE (10/02/2024 8:33 PM EST) Glucometer, POC 141 65 - 199 mg/dL 10/02/2024 8:33 PM EST [facility] Comment:Supplemental ranges: <140 mg/dL before meals <180 mg/dL all other times of the day. Blood CAPILLARY BLOOD / Unknown 10/02/2024 8:33 PM EST 10/02/2024 8:33 PM EST Gissell Velazco MD POINT OF CARE TEST ORDERABLES [facility] [place] [address] * POC, GLUCOSE (10/02/2024 4:08 PM EST) Glucometer, POC 175 65 - 199 mg/dL 10/02/2024 4:08 PM EST [facility] Comment:Supplemental ranges: <140 mg/dL before meals <180 mg/dL all other times of the day. Blood CAPILLARY BLOOD / Unknown 10/02/2024 4:08 PM EST 10/02/2024 4:08 PM EST Gissell Velazco MD POINT OF CARE TEST ORDERABLES [facility] [place] [address] * POC, GLUCOSE (10/02/2024 11:52 AM EST) Glucometer, POC 129 65 - 199 mg/dL 10/02/2024 11:52 AM EST [facility] Comment:Supplemental ranges: <140 mg/dL before meals <180 mg/dL all other times of the day. Blood CAPILLARY BLOOD / Unknown 10/02/2024 11:52 AM EST 10/02/2024 11:52 AM EST Gissell Velazco MD POINT OF CARE TEST ORDERABLES Performing Organization Address City/[facility] Co de Phone Number [facility] [place] [address] * POC, GLUCOSE (10/02/2024 8:27 AM EST) Glucometer, POC 122 65 - 199 mg/dL 10/02/2024 8:27 AM EST [facility] Comment:Supplemental ranges: <140 mg/dL before meals <180 mg/dL all other times of the day. Blood CAPILLARY BLOOD / Unknown 10/02/2024 8:27 AM EST 10/02/2024 8:27 AM EST Gissell Velazco MD POINT OF CARE TEST ORDERABLES Performing Organization Address [facility] Co de Phone Number [facility] [place] [address] * POC, GLUCOSE (10/02/2024 4:41 AM EST) Glucometer, POC 121 65 - 199 mg/dL 10/02/2024 4:41 AM EST [facility] Comment:Supplemental ranges: <140 mg/dL before meals <180 mg/dL all other times of the day. Blood CAPILLARY BLOOD / Unknown 10/02/2024 4:41 AM EST 10/02/2024 4:41 AM EST Gissell Velazco MD POINT OF CARE TEST ORDERABLES Performing Organization Address City/[facility] Co de Phone Number [facility] [place] [address] * Phosphorus (10/02/2024 1:49 AM EST) Phosphorus 2.9 2.5 - 4.5 mg/dL 10/02/2024 2:25 AM EST [facility] Blood VENOUS BLOOD SPECIMEN / Unknown Venipuncture / Unknown 10/02/2024 1:49 AM EST 10/02/2024 1:54 AM EST Librado Patel MD CHEMISTRY ORDERABLES [facility] [place] [address] * Magnesium (10/02/2024 1:49 AM EST) Pathologist [facility] Magnesium 0.83 0.69 - 1.07 mMol/L 10/02/2024 2:25 AM EST [facility] [facility] Blood VENOUS BLOOD SPECIMEN / Unknown Venipuncture / Unknown 10/02/2024 1:49 AM EST 10/02/2024 1:54 AM EST Librado Patel MD CHEMISTRY ORDERABLES Performing Organization Address City/[facility]/ZIP Co de Phone Number [facility] [place] [address] * (ABNORMAL) Basic Metabolic Panel (10/02/2024 1:49 AM EST) [facility] Glucose 123 65 - 199 mg/dL 10/02/2024 2:25 AM [facility] Comment:Glucose Concentratio n >=200 mg/dL plus symptoms is consistent with Diabetes Mellitus. Blood Urea Nitrogen 27(H) 8 - 18 mg/dL 10/02/2024 2:25 AM [facility] Creatinine 0.39(L) 0.70 - 1.20 mg/dL 10/02/2024 2:25 AM [facility] Sodium 146(H) 135 - 145 mMol/L 10/02/2024 2:25 AM [facility] Potassium 3.6 3.5 - 5.0 mMol/L 10/02/2024 2:25 AM [facility] Chloride 108(H) 98 - 107 mMol/L 10/02/2024 2:25 AM [facility] Carbon Dioxide 28 22 - 31 mMol/L 10/02/2024 2:25 AM [facility] Anion Gap 10 5 - 15 mMol/L 10/02/2024 2:25 AM EST [facility] Calcium 8.7 8.5 - 10.5 mg/dL 10/02/2024 2:25 AM EST [facility] Est Glomerular Filtration Rate - Female 106 mL/min/1. 73 m?? 10/02/2024 2:25 AM [facility] Comment: This patient's estimated GFR was [...] BLOOD SPECIMEN / Unknown Venipuncture / Unknown 10/02/2024 1:49 AM EST 10/02/2024 1:54 AM EST Librado Patel MD CHEMISTRY ORDERABLES [facility] [place] [address] * (ABNORMAL) CBC (with Diff) (10/02/2024 1:49 AM EST) White Blood Cell 19.16(H) 4.00 - 9.50 x10(3)/mc L 10/02/2024 2:18 AM EST [facility] Red Blood Cell 3.35(L) 4.00 - 5.21 x10(6)/mc L 10/02/2024 2:18 AM EST [facility] Hemoglobin 10.1(L) 11.7 - 15.5 g/dL 10/02/2024 2:18 AM [facility] Hematocrit 31.1(L) 35.7 - 45.8 % 10/02/2024 2:18 AM [facility] Mean Cell Volume 92.8 82.6 - 94.4 fL 10/02/2024 2:18 AM [facility] Mean Cell Hemoglobin 30.1 27.1 - 32.0 pg 10/02/2024 2:18 AM [facility] Mean Cell Hemoglobin Concentration 32.5 31.7 - 35.0 g/dL 10/02/2024 2:18 AM [facility] Platelet 399(H) 145 - 357 x10(3)/mc L 10/02/2024 2:18 AM [facility] Mean Platelet Volume 10.0 7.6 - 12.9 fL 10/02/2024 2:18 AM [facility] RDW Standard Deviation 46.6(H) 37.0 - 46.0 fL 10/02/2024 2:18 AM [facility] RDW coefficient of variation 14.5(H) 11.5 - 14.1 % 10/02/2024 2:18 AM [facility] NRBC% auto 0.0 % 10/02/2024 2:18 AM [facility] NRBC Absolute <0.01 <0.01 x10(3)/mc L 10/02/2024 2:18 AM [facility] Neutrophil % 85.9 % 10/02/2024 2:18 AM [facility] Neutrophil Absolute (ANC) - Automated 16.45(H) 1.70 - 6.10 x10(3)/mc L 10/02/2024 2:18 AM [facility] Lymph % 6.6 % 10/02/2024 2:18 AM [facility] Lymph Absolute 1.27 0.90 - 3.20 x10(3)/mc L 10/02/2024 2:18 AM [facility] Monocyte % 6.3 % 10/02/2024 2:18 AM [facility] Monocyte Absolute 1.21(H) 0.30 - 0.90 x10(3)/mc L 10/02/2024 2:18 AM EST [facility] Eos % 0.3 % 10/02/2024 2:18 AM [facility] Eos Absolute 0.05 0.00 - 0.40 x10(3)/mc L 10/02/2024 2:18 AM [facility] Basophil % 0.1 % 10/02/2024 2:18 AM [facility] Baso Absolute <0.04 0.00 - 0.10 x10(3)/mc L 10/02/2024 2:18 AM [facility] Immature Gran % 0.8 % 2:18 AM [facility] Immature Gran Absolute 0.16(H) 0.00 - 0.04 x10(3)/mc L 10/02/2024 2:18 AM [facility] Blood VENOUS BLOOD SPECIMEN / Unknown Venipuncture / Unknown 10/02/2024 1:49 AM EST 10/02/2024 1:54 AM EST Librado Patel MD HEMATOLOGY ORDERABLE S [facility] [place] [address] * POC, GLUCOSE (10/02/2024 12:22 AM EST) [facility] Signature Glucometer, POC 125 65 - 199 mg/dL 10/02/2024 12:23 AM EST [facility] Comment:Supplemental ranges: <140 mg/dL before meals <180 mg/dL all other times of the day. Blood CAPILLARY BLOOD / Unknown 10/02/2024 12:22 AM EST 10/02/2024 12:23 AM EST Gissell Velazco MD POINT OF CARE TEST ORDERABLES [facility] [place] [address] * POC, GLUCOSE (10/01/2024 7:44 PM EST) Glucometer, POC 161 65 - 199 mg/dL 10/01/2024 7:44 PM EST [facility] Comment:Supplemental ranges: <140 mg/dL before meals <180 mg/dL all other times of the day. Blood CAPILLARY BLOOD / Unknown 10/01/2024 7:44 PM EST 10/01/2024 7:44 PM EST Gissell Velazco MD POINT OF CARE TEST ORDERABLES Performing Organization Address City/[facility] Co de Phone Number [facility] [place] [address] * POC, GLUCOSE (10/01/2024 4:22 PM EST) Glucometer, POC 190 65 - 199 mg/dL 10/01/2024 4:23 PM EST [facility] Comment:Supplemental ranges: <140 mg/dL before meals <180 mg/dL all other times of the day. Blood CAPILLARY BLOOD / Unknown 10/01/2024 4:22 PM EST 10/01/2024 4:23 PM EST Gissell Velazco MD POINT OF CARE TEST ORDERABLES Performing Organization Address City/[facility] Co de Phone Number [facility] [place] [address] * POC, GLUCOSE (10/01/2024 12:02 PM EST) Glucometer, POC 137 65 - 199 mg/dL 10/01/2024 12:03 PM EST [facility] Comment:Supplemental ranges: <140 mg/dL before meals <180 mg/dL all other times of the day. Blood CAPILLARY BLOOD / Unknown 10/01/2024 12:02 PM EST 10/01/2024 12:03 PM EST Gissell Velazco MD POINT OF CARE TEST ORDERABLES [facility] [place] [address] * POC, GLUCOSE (10/01/2024 8:01 AM EST) Glucometer, POC 160 65 - 199 mg/dL 10/01/2024 8:02 AM EST [facility] Comment:Supplemental ranges: <140 mg/dL before meals <180 mg/dL all other times of the day. Blood CAPILLARY BLOOD / Unknown 10/01/2024 8:01 AM EST 10/01/2024 8:02 AM EST Gissell Velazco MD POINT OF CARE TEST ORDERABLES [facility] [place] [address] * POC, GLUCOSE (10/01/2024 3:39 AM EST) Glucometer, POC 162 65 - 199 mg/dL 10/01/2024 3:39 AM EST [facility] Comment:Supplemental ranges: <140 mg/dL before meals <180 mg/dL all other times of the day. Blood CAPILLARY BLOOD / Unknown 10/01/2024 3:39 AM EST 10/01/2024 3:39 AM EST Gissell Velazco MD POINT OF CARE TEST ORDERABLES [facility] [place] [address] * (ABNORMAL) Phosphorus (10/01/2024 12:21 AM EST) Phosphorus 2.4(L) 2.5 - 4.5 mg/dL 10/01/2024 1:03 AM EST [facility] Blood VENOUS BLOOD SPECIMEN / Unknown Venipuncture / Unknown 10/01/2024 12:21 AM EST 10/01/2024 12:33 AM EST Librado Patel MD CHEMISTRY ORDERABLES [facility] [place] [address] * Magnesium (10/01/2024 12:21 AM EST) Pathologist [facility] Magnesium 0.84 0.69 - 1.07 mMol/L 10/01/2024 1:03 AM [facility] Blood VENOUS BLOOD SPECIMEN / Unknown Venipuncture / Unknown 10/01/2024 12:21 AM EST 10/01/2024 12:33 AM EST Librado Patel MD CHEMISTRY ORDERABLES [facility] [place] [address] * (ABNORMAL) Basic Metabolic Panel (10/01/2024 12:21 AM EST) [facility] Glucose 124 65 - 199 mg/dL 10/01/2024 1:03 AM [facility] Comment:Glucose Concentratio n >=200 mg/dL plus symptoms is consistent with Diabetes Mellitus. Blood Urea Nitrogen 23(H) 8 - 18 mg/dL 10/01/2024 1:03 AM [facility] Creatinine 0.43(L) 0.70 - 1.20 mg/dL 10/01/2024 1:03 AM [facility] Sodium 141 135 - 145 mMol/L 10/01/2024 1:03 AM [facility] Potassium 3.2(L) 3.5 - 5.0 mMol/L 10/01/2024 1:03 AM [facility] Chloride 105 98 - 107 mMol/L 10/01/2024 1:03 AM [facility] Carbon Dioxide 28 22 - 31 mMol/L 10/01/2024 1:03 AM [facility] Anion Gap 8 5 - 15 mMol/L 10/01/2024 1:03 AM [facility] Calcium 8.7 8.5 - 10.5 mg/dL 10/01/2024 1:03 AM [facility] Est Glomerular Filtration Rate - Female 103 mL/min/1. 73 m?? 10/01/2024 1:03 AM [facility] Comment: This patient's estimated GFR was [...] BLOOD SPECIMEN / Unknown Venipuncture / Unknown 10/01/2024 12:21 AM EST 10/01/2024 12:33 AM EST Librado Patel MD CHEMISTRY ORDERABLES [facility] [place] [address] * (ABNORMAL) CBC (with Diff) (10/01/2024 12:21 AM EST) White Blood Cell 22.24(H) 4.00 - 9.50 x10(3)/mc L 10/01/2024 12:37 AM [facility] Red Blood Cell 3.22(L) 4.00 - 5.21 x10(6)/mc L 10/01/2024 12:37 AM [facility] Hemoglobin 9.9(L) 11.7 - 15.5 g/dL 10/01/2024 12:37 AM [facility] Hematocrit 29.2(L) 35.7 - 45.8 % 10/01/2024 12:37 AM [facility] Mean Cell Volume 90.7 82.6 - 94.4 fL 10/01/2024 12:37 AM [facility] Mean Cell Hemoglobin 30.7 27.1 - 32.0 pg 10/01/2024 12:37 AM [facility] Mean Cell Hemoglobin Concentration 33.9 31.7 - 35.0 g/dL 10/01/2024 12:37 AM [facility] Platelet 370(H) 145 - 357 x10(3)/mc L 10/01/2024 12:37 AM [facility] Mean Platelet Volume 9.8 7.6 - 12.9 fL 10/01/2024 12:37 AM [facility] RDW Standard Deviation 44.3 37.0 - 46.0 fL 10/01/2024 12:37 AM [facility] RDW coefficient of variation 13.7 11.5 - 14.1 % 10/01/2024 12:37 AM [facility] NRBC% auto 0.0 % 10/01/2024 12:37 AM [facility] NRBC Absolute <0.01 <0.01 x10(3)/mc L 10/01/2024 12:37 AM [facility] Neutrophil % 90.0 % 10/01/2024 12:37 AM [facility] Neutrophil Absolute (ANC) - Automated 20.01(H) 1.70 - 6.10 x10(3)/mc L 10/01/2024 12:37 AM [facility] Lymph % 2.2 % 10/01/2024 12:37 AM [facility] Lymph Absolute 0.50(L) 0.90 - 3.20 x10(3)/mc L 10/01/2024 12:37 AM [facility] Monocyte % 5.8 % 10/01/2024 12:37 AM [facility] Monocyte Absolute 1.29(H) 0.30 - 0.90 x10(3)/mc L 10/01/2024 12:37 AM [facility] Eos % 0.0 % 10/01/2024 12:37 AM [facility] Eos Absolute <0.04 0.00 - 0.40 x10(3)/mc L 10/01/2024 12:37 AM EST [facility] Basophil % 0.1 % 10/01/2024 12:37 AM [facility] Baso Absolute <0.04 0.00 - 0.10 x10(3)/mc L 10/01/2024 12:37 AM [facility] Immature Gran % 1.9 % 12:37 AM [facility] Immature Gran Absolute 0.42(H) 0.00 - 0.04 x10(3)/mc L 10/01/2024 12:37 AM [facility] Blood VENOUS BLOOD SPECIMEN / Unknown Venipuncture / Unknown 10/01/2024 12:21 AM EST 10/01/2024 12:33 AM EST Librado Patel MD HEMATOLOGY ORDERABLE S [facility] [place] [address] * (ABNORMAL) POC, GLUCOSE (09/30/2024 8:15 PM EST) Glucometer, POC 233(H) 65 - 199 mg/dL 09/30/2024 8:16 PM EST [facility] Comment:Supplemental ranges: <140 mg/dL before meals <180 mg/dL all other times of the day. Blood CAPILLARY BLOOD / Unknown 09/30/2024 8:15 PM EST 09/30/2024 8:16 PM EST Gissell Velazco MD POINT OF CARE TEST ORDERABLES [facility] [place] [address] * (ABNORMAL) POC, GLUCOSE (09/30/2024 4:36 PM EST) Glucometer, POC 207(H) 65 - 199 mg/dL 09/30/2024 4:39 PM EST [facility] Comment:Supplemental ranges: <140 mg/dL before meals <180 mg/dL all other times of the day. Blood CAPILLARY BLOOD / Unknown 09/30/2024 4:36 PM EST 09/30/2024 4:39 PM EST Gissell Velazco MD POINT OF CARE TEST ORDERABLES Performing Organization Address City/[facility] Co de Phone Number [facility] [place] [place] [address] * POC, GLUCOSE (09/30/2024 11:53 AM EST) Glucometer, POC 196 65 - 199 mg/dL 09/30/2024 11:53 AM EST [facility] Comment:Supplemental ranges: <140 mg/dL before meals <180 mg/dL all other times of the day. Blood CAPILLARY BLOOD / Unknown 09/30/2024 11:53 AM EST 09/30/2024 11:54 AM EST Gissell Velazco MD POINT OF CARE TEST ORDERABLES Performing Organization Address [facility] Phone Number [facility] [place] [address] * (ABNORMAL) POC, GLUCOSE (09/30/2024 9:05 AM EST) Glucometer, POC 229(H) 65 - 199 mg/dL 09/30/2024 9:05 AM EST [facility] Comment:Supplemental ranges: <140 mg/dL before meals <180 mg/dL all other times of the day. Blood CAPILLARY BLOOD / Unknown 09/30/2024 9:05 AM EST 09/30/2024 9:05 AM EST Gissell Velazco MD POINT OF CARE TEST ORDERABLES Performing Organization Address City/[facility] Co de Phone Number [facility] [place] [address] * POC, GLUCOSE (09/30/2024 4:53 AM EST) Glucometer, POC 165 65 - 199 mg/dL 09/30/2024 4:53 AM EST [facility] Comment:Supplemental ranges: <140 mg/dL before meals <180 mg/dL all other times of the day. Blood CAPILLARY BLOOD / Unknown 09/30/2024 4:53 AM EST 09/30/2024 4:54 AM EST Gissell Velazco MD POINT OF CARE TEST ORDERABLES [facility] [place] [address] * Phosphorus (09/30/2024 1:44 AM EST) Phosphorus 2.9 2.5 - 4.5 mg/dL 09/30/2024 2:22 AM EST [facility] Blood VENOUS BLOOD SPECIMEN / Unknown Venipuncture / Unknown 09/30/2024 1:44 AM EST 09/30/2024 1:52 AM EST Librado Patel MD CHEMISTRY ORDERABLES Performing Organization Address City/[facility]/ZIP Co de Phone Number [facility] [place] [address] * Magnesium (09/30/2024 1:44 AM EST) Magnesium 0.79 0.69 - 1.07 mMol/L 09/30/2024 2:22 AM EST [facility] Blood VENOUS BLOOD SPECIMEN / Unknown Venipuncture / Unknown 09/30/2024 1:44 AM EST 09/30/2024 1:52 AM EST Librado Patel MD CHEMISTRY ORDERABLES Performing Organization Address City/[facility]/ZIP Co de Phone Number [facility] [place] [address] * (ABNORMAL) Basic Metabolic Panel (09/30/2024 1:44 AM EST) Glucose 141 65 - 199 mg/dL 09/30/2024 2:22 AM [facility] Comment:Glucose Concentratio n >=200 mg/dL plus symptoms is consistent with Diabetes Mellitus. Blood Urea Nitrogen 16 8 - 18 mg/dL 09/30/2024 2:22 AM [facility] Creatinine 0.47(L) 0.70 - 1.20 mg/dL 09/30/2024 2:22 AM [facility] Sodium 139 135 - 145 mMol/L 09/30/2024 2:22 AM [facility] Potassium 3.9 3.5 - 5.0 mMol/L 09/30/2024 2:22 AM [facility] Chloride 104 98 - 107 mMol/L 09/30/2024 2:22 AM [facility] Carbon Dioxide 25 22 - 31 mMol/L 09/30/2024 2:22 AM [facility] Anion Gap 10 5 - 15 mMol/L 09/30/2024 2:22 AM [facility] Calcium 8.4(L) 8.5 - 10.5 mg/dL 09/30/2024 2:22 AM [facility] Est Glomerular Filtration Rate - Female 101 mL/min/1. 73 m?? 09/30/2024 2:22 AM [facility] Comment: This patient's estimated GFR was [...] BLOOD SPECIMEN / Unknown Venipuncture / Unknown 09/30/2024 1:44 AM EST 09/30/2024 1:52 AM EST Librado Patel MD CHEMISTRY ORDERABLES [facility] [place] [address] * (ABNORMAL) CBC (with Diff) (09/30/2024 1:44 AM EST) White Blood Cell 25.89(H) 4.00 - 9.50 x10(3)/mc L 09/30/2024 1:59 AM [facility] Red Blood Cell 3.34(L) 4.00 - 5.21 x10(6)/mc L 09/30/2024 1:59 AM [facility] Hemoglobin 10.1(L) 11.7 - 15.5 g/dL 09/30/2024 1:59 AM [facility] Hematocrit 31.0(L) 35.7 - 45.8 % 09/30/2024 1:59 AM [facility] Mean Cell Volume 92.8 82.6 - 94.4 fL 09/30/2024 1:59 AM [facility] Mean Cell Hemoglobin 30.2 27.1 - 32.0 pg 09/30/2024 1:59 AM [facility] Mean Cell Hemoglobin Concentration 32.6 31.7 - 35.0 g/dL 09/30/2024 1:59 AM [facility] Platelet 376(H) 145 - 357 x10(3)/mc L 09/30/2024 1:59 AM [facility] Mean Platelet Volume 9.7 7.6 - 12.9 fL 09/30/2024 1:59 AM [facility] RDW Standard Deviation 46.5(H) 37.0 - 46.0 fL 09/30/2024 1:59 AM [facility] RDW coefficient of variation 14.2(H) 11.5 - 14.1 % 09/30/2024 1:59 AM [facility] NRBC% auto 0.0 % 09/30/2024 1:59 AM [facility] NRBC Absolute <0.01 <0.01 x10(3)/mc L 09/30/2024 1:59 AM [facility] Neutrophil % 85.9 % 09/30/2024 1:59 AM [facility] Neutrophil Absolute (ANC) - Automated 22.26(H) 1.70 - 6.10 x10(3)/mc L 09/30/2024 1:59 AM [facility] Lymph % 5.1 % 09/30/2024 1:59 AM [facility] Lymph Absolute 1.33 0.90 - 3.20 x10(3)/mc L 09/30/2024 1:59 AM [facility] Monocyte % 5.6 % 09/30/2024 1:59 AM [facility] Monocyte Absolute 1.44(H) 0.30 - 0.90 x10(3)/mc L 09/30/2024 1:59 AM [facility] Eos % 1.2 % 09/30/2024 1:59 AM [facility] Eos Absolute 0.30 0.00 - 0.40 x10(3)/mc L 09/30/2024 1:59 AM [facility] Basophil % 0.2 % 09/30/2024 1:59 AM [facility] Baso Absolute 0.05 0.00 - 0.10 x10(3)/mc L 09/30/2024 1:59 AM [facility] Immature Gran % 2.0 % 1:59 AM [facility] Immature Gran Absolute 0.51(H) 0.00 - 0.04 x10(3)/mc L 09/30/2024 1:59 AM [facility] Blood VENOUS BLOOD SPECIMEN / Unknown Venipuncture / Unknown 09/30/2024 1:44 AM EST 09/30/2024 1:52 AM EST Librado Patel MD HEMATOLOGY ORDERABLE S [facility] [place] [place] [address] * POC, GLUCOSE (09/29/2024 11:37 PM EST) Glucometer, POC 133 65 - 199 mg/dL 09/29/2024 11:38 PM EST [facility] Comment:Supplemental ranges: <140 mg/dL before meals <180 mg/dL all other times of the day. Blood CAPILLARY BLOOD / Unknown 09/29/2024 11:37 PM EST 09/29/2024 11:38 PM EST Gissell Velazco MD POINT OF CARE TEST ORDERABLES Performing Organization Address City/[facility]/ZIP Co de Phone Number [facility] [place] [address] * POC, GLUCOSE (09/29/2024 8:09 PM EST) Glucometer, POC 109 65 - 199 mg/dL 09/29/2024 8:10 PM EST [facility] Comment:Supplemental ranges: <140 mg/dL before meals <180 mg/dL all other times of the day. Blood CAPILLARY BLOOD / Unknown 09/29/2024 8:09 PM EST 09/29/2024 8:10 PM EST Gissell Velazco MD POINT OF CARE TEST ORDERABLES [facility] [place] [address] * POC, GLUCOSE (09/29/2024 6:14 PM EST) Glucometer, POC 121 65 - 199 mg/dL 09/29/2024 6:14 PM EST [facility] Comment:Supplemental ranges: <140 mg/dL before meals <180 mg/dL all other times of the day. Blood CAPILLARY BLOOD / Unknown 09/29/2024 6:14 PM EST 09/29/2024 6:15 PM EST Gissell Velazco MD POINT OF CARE TEST ORDERABLES [facility] [place] [address] * XR Chest One View (09/29/2024 1:13 PM EST) [employer] WORKSTATION ID [id number] RAD Anatomical Region Laterality Modality Chest N/A Digital Radiogra phy Impressions 09/30/2024 12:49 AM EST 1. ??Limited examination. 2. ??Stable position of medical hardware. 3. ??The lung volumes are decreased, which accentuates the pulmonary vascular markings and cardiac silhouette. 4. ??Accounting for this, a stable mild component of congestive heart failure / fluid overload is suspected. 5. ??Stable moderate cardiomegaly. 6. ??Possible inferior subluxation of the left humerus. ??Correlation with patient symptomatology is recommended. ??If clinically indicated, further evaluation with dedicated left shoulder radiographs can be obtained. Thank you for letting us participate in the care of this patient. ??If you are a health care provider and have any questions regarding this report, please contact the number below. ??For patients who have questions please contact the health ocular care technician that requested your imaging first. ? Electronically signed by: Marvin Decker DO, [facility] ([phone]), at 09/30/2024 12:49 AM Narrative 09/30/2024 12:49 AM EST EXAMINATION: XR CHEST ONE VIEW CLINICAL HISTORY: Increased O2 demands, leukocytosis, concern for congestion? TECHNIQUE: A single AP portable semierect radiograph the chest was obtained. COMPARISON: Comparison is made to multiple prior chest radiograph examinations, the most recent which is dated September 28, 2024. ??Correlation is made to CT of the chest dated September 26, 2024. FINDINGS: Patient body habitus limits evaluation. There is an enteric catheter present with tip outside the field of view, but below the left hemidiaphragm. ??There is a right subclavian central venous catheter with tip overlying the mid superior vena cava. Multiple monitoring devices overlie the patient. The lung volumes are decreased, which accentuates the pulmonary vascular markings and cardiac silhouette. ??There are streaky regions of atelectasis at the bilateral lung bases, unchanged. ??The degree of interstitial markings and cephalization of pulmonary vasculature is similar to prior, and mildly increased. ??There is no pleural effusion or pneumothorax. The trachea is midline. ??Hilar structures are limited evaluation. The cardiomediastinal contours are also limited evaluation but grossly stable. There is stable moderate enlargement of the cardiac silhouette. ??There is an left atrial appendage occlusion device present. ??There is stable atherosclerotic calcification of the aortic arch. Visualized structures within the superior abdomen and inferior neck are otherwise within normal limits. There is stable S-shaped scoliosis of the visualized spine with endplate sclerosis and osteophyte formation. ??The left humeral head appears subluxed inferiorly as compared to the glenoid. Procedure Note Marvin Decker, DO - 09/30/2024 EXAMINATION: XR CHEST ONE VIEW CLINICAL HISTORY: Increased O2 demands, leukocytosis, concern forcongestion? TECHNIQUE: A single AP portable semierect radiograph the chest wasobtained. COMPARISON: Comparison is made to multiple prior chest radiographexaminations, the most recent which is dated September 28, 2024. Correlation is made toCT of the chest dated September 26, 2024. FINDINGS: Patient body habitus limits evaluation. There is an enteric catheter present with tip outside the field of view,but below the left hemidiaphragm. There is a right subclavian centralvenous catheter with tip overlying the mid superior vena cava. Multiple monitoring devices overlie the patient. The lung volumes are decreased, which accentuates the pulmonary vascular markings and cardiac silhouette. There are streaky regions of atelectasisat the bilateral lung bases, unchanged. The degree of interstitial markingsand cephalization of pulmonary vasculature is similar to prior, and mildly increased. There is no pleural effusion or pneumothorax. The trachea is midline. Hilar structures are limited evaluation. The cardiomediastinal contours are also limited evaluation but grosslystable. There is stable moderate enlargement of the cardiac silhouette. There isan left atrial appendage occlusion device present. There is stableatherosclerotic calcification of the aortic arch. Visualized structures within the superior abdomen and inferior neck are otherwise within normal limits. There is stable S-shaped scoliosis of the visualized spine with endplate sclerosis and osteophyte formation. The left humeral head appearssubluxed inferiorly as compared to the glenoid. IMPRESSION 1. Limited examination. 2. Stable position of medical hardware. 3. The lung volumes are decreased, which accentuates the pulmonaryvascular markings and cardiac silhouette. 4. Accounting for this, a stable mild component of congestive heartfailure / fluid overload is suspected. 5. Stable moderate cardiomegaly. 6. Possible inferior subluxation of the left humerus. Correlation withpatient symptomatology is recommended. If clinically indicated, furtherevaluation with dedicated left shoulder radiographs can be obtained. Thank you for letting us participate in the care of this patient. If youare a health care provider and have any questions regarding this report,please contact the number below. For patients who have questions please contactthe health ocular care technician that requested your imaging first. Gissell Velazco MD IMG DX ORDERABLES * POC, GLUCOSE (09/29/2024 11:29 AM EST) [facility] Glucometer, POC 135 65 - 199 mg/dL 09/29/2024 11:30 AM EST [facility] Comment:Supplemental ranges: <140 mg/dL before meals <180 mg/dL all other times of the day. Blood CAPILLARY BLOOD / Unknown 09/29/2024 11:29 AM EST 09/29/2024 11:30 AM EST Gissell Velazco MD POINT OF CARE TEST ORDERABLES Performing Organization Address City/[facility]/ZIP Co de Phone Number [facility] [place] [address] * POC, GLUCOSE (09/29/2024 8:37 AM EST) Glucometer, POC 126 65 - 199 mg/dL 09/29/2024 8:38 AM EST [facility] Comment:Supplemental ranges: <140 mg/dL before meals <180 mg/dL all other times of the day. Blood CAPILLARY BLOOD / Unknown 09/29/2024 8:37 AM EST 09/29/2024 8:39 AM EST Gissell Velazco MD POINT OF CARE TEST ORDERABLES Performing Organization Address [facility] Co de Phone Number [facility] [place] [address] * POC, GLUCOSE (09/29/2024 4:47 AM EST) Glucometer, POC 145 65 - 199 mg/dL 09/29/2024 4:47 AM EST [facility] Comment:Supplemental ranges: <140 mg/dL before meals <180 mg/dL all other times of the day. Blood CAPILLARY BLOOD / Unknown 09/29/2024 4:47 AM EST 09/29/2024 4:48 AM EST Dinesh Bauer MD POINT OF CARE TEST ORDERABLES Performing Organization Address City/[facility]/ZIP Co de Phone Number [facility] [place] [address] * Magnesium (09/29/2024 1:09 AM EST) Magnesium 0.77 0.69 - 1.07 mMol/L 09/29/2024 1:51 AM [facility] Blood VENOUS BLOOD SPECIMEN / Unknown Venipuncture / Unknown 09/29/2024 1:09 AM EST 09/29/2024 1:27 AM EST Librado Patel MD CHEMISTRY ORDERABLES [facility] [place] [address] * (ABNORMAL) CBC (with Diff) (09/29/2024 1:09 AM EST) White Blood Cell 26.40(H) 4.00 - 9.50 x10(3)/mc L 09/29/2024 1:36 AM [facility] Red Blood Cell 3.36(L) 4.00 - 5.21 x10(6)/mc L 09/29/2024 1:36 AM [facility] Hemoglobin 10.0(L) 11.7 - 15.5 g/dL 09/29/2024 1:36 AM [facility] Hematocrit 30.9(L) 35.7 - 45.8 % 09/29/2024 1:36 AM [facility] Mean Cell Volume 92.0 82.6 - 94.4 fL 09/29/2024 1:36 AM [facility] Mean Cell Hemoglobin 29.8 27.1 - 32.0 pg 09/29/2024 1:36 AM [facility] Mean Cell Hemoglobin Concentration 32.4 31.7 - 35.0 g/dL 09/29/2024 1:36 AM [facility] Platelet 397(H) 145 - 357 x10(3)/mc L 09/29/2024 1:36 AM [facility] Mean Platelet Volume 10.0 7.6 - 12.9 fL 09/29/2024 1:36 AM [facility] RDW Standard Deviation 45.3 37.0 - 46.0 fL 09/29/2024 1:36 AM [facility] RDW coefficient of variation 14.0 11.5 - 14.1 % 09/29/2024 1:36 AM [facility] NRBC% auto 0.0 % 09/29/2024 1:36 AM [facility] NRBC Absolute <0.01 <0.01 x10(3)/mc L 09/29/2024 1:36 AM [facility] Neutrophil % 86.2 % 09/29/2024 1:36 AM [facility] Neutrophil Absolute (ANC) - Automated 22.77(H) 1.70 - 6.10 x10(3)/mc L 09/29/2024 1:36 AM [facility] Lymph % 5.9 % 09/29/2024 1:36 AM [facility] Lymph Absolute 1.56 0.90 - 3.20 x10(3)/mc L 09/29/2024 1:36 AM [facility] Monocyte % 4.6 % 09/29/2024 1:36 AM [facility] Monocyte Absolute 1.21(H) 0.30 - 0.90 x10(3)/mc L 09/29/2024 1:36 AM [facility] Eos % 0.8 % 09/29/2024 1:36 AM [facility] Eos Absolute 0.21 0.00 - 0.40 x10(3)/mc L 09/29/2024 1:36 AM [facility] Basophil % 0.2 % 09/29/2024 1:36 AM [facility] Baso Absolute 0.04 0.00 - 0.10 x10(3)/mc L 09/29/2024 1:36 AM [facility] Immature Gran % 2.3 % 1:36 AM [facility] Immature Gran Absolute 0.61(H) 0.00 - 0.04 x10(3)/mc L 09/29/2024 1:36 AM EST [facility] Blood VENOUS BLOOD SPECIMEN / Unknown Venipuncture / Unknown 09/29/2024 1:09 AM EST 09/29/2024 1:27 AM EST Librado Patel MD HEMATOLOGY ORDERABLE S Performing Organization Address City/[facility]/ZIP Co de Phone Number [facility] [place] [address] * POC, GLUCOSE (09/29/2024 12:53 AM EST) Glucometer, POC 146 65 - 199 mg/dL 09/29/2024 12:53 AM EST [facility] Comment:Supplemental ranges: <140 mg/dL before meals <180 mg/dL all other times of the day. Blood CAPILLARY BLOOD / Unknown 09/29/2024 12:53 AM EST 09/29/2024 12:53 AM EST Dinesh Bauer MD POINT OF CARE TEST ORDERABLES Performing Organization Address City/[facility]/ZIP Co de Phone Number [facility] [place] [address] * POC, GLUCOSE (09/28/2024 10:25 PM EST) Glucometer, POC 131 65 - 199 mg/dL 09/28/2024 10:26 PM EST [facility] Comment:Supplemental ranges: <140 mg/dL before meals <180 mg/dL all other times of the day. Blood CAPILLARY BLOOD / Unknown 09/28/2024 10:25 PM EST 09/28/2024 10:26 PM EST Dinesh Bauer MD POINT OF CARE TEST ORDERABLES Performing Organization Address City/[facility]/ZIP Co de Phone Number [facility] [place] [address] * XR Chest One View (09/28/2024 7:58 PM EST) WORKSTATION ID [id number] DH RAD Anatomical Region Laterality Modality Chest N/A Digital Radiogra phy Impressions 09/28/2024 8:09 PM EST 1. ??Slightly increased opacity in the left lower lung which may be due to atelectasis, aspiration or pneumonia. 2. ??Small bilateral pleural effusions. Thank you for letting us participate in the care of this patient. ??If you are a health care provider and have any questions regarding this report, please contact the number below. ??For patients who have questions please contact the health ocular care technician that requested your imaging first. ? Electronically signed by: Sammy Story MD, [facility] ([phone]), at 09/28/2024 8:09 PM Narrative 09/28/2024 8:09 PM EST EXAMINATION: XR CHEST ONE VIEW CLINICAL HISTORY: New Oxygen Requirement, prior difficulty with extubations TECHNIQUE: AP 30 degrees upright view of the chest COMPARISON: September 28, 2024 at 4:00 AM FINDINGS: Increased opacity is present at the base of the left lung, slightly more extensive than seen previously. The remainder the lungs are clear. The heart size is within normal limits given technique. A left atrial appendage occluder is present. Both costophrenic angles are blunted. An enteric catheter reaches the abdomen and has its distal tip below the [id number]. A right-sided PICC has its distal tip projecting in the distal superior vena cava. Procedure Note Sammy Story MD - 09/28/2024 EXAMINATION: XR CHEST ONE VIEW CLINICAL HISTORY: New Oxygen Requirement, prior difficulty withextubations TECHNIQUE: AP 30 degrees upright view of the chest COMPARISON: September 28, 2024 at 4:00 AM FINDINGS: Increased opacity is present at the base of the left lung, slightly more extensive than seen previously. The remainder the lungs are clear. The heart size is within normal limits given technique. A left atrialappendage occluder is present. Both costophrenic angles are blunted. An enteric catheter reaches the abdomen and has its distal tip below the [id number]. A right-sided PICC has its distal tip projecting in thedistal superior vena cava. IMPRESSION 1. Slightly increased opacity in the left lower lung which may be dueto atelectasis, aspiration or pneumonia. 2. Small bilateral pleural effusions. Thank you for letting us participate in the care of this patient. If youare a health care provider and have any questions regarding this report,please contact the number below. For patients who have questions please contactthe health ocular care technician that requested your imaging first. Electronically signed by: Sammy Story MD, [facility]([phone]), at 09/28/2024 8:09 PM Dinesh Bauer MD IMG DX ORDERABLES * POC, GLUCOSE (09/28/2024 7:50 PM EST) Glucometer, POC 130 65 - 199 mg/dL 09/28/2024 7:51 PM EST [facility] Comment:Supplemental ranges: <140 mg/dL before meals <180 mg/dL all other times of the day. Blood CAPILLARY BLOOD / Unknown 09/28/2024 7:50 PM EST 09/28/2024 7:51 PM EST Dinesh Bauer MD POINT OF CARE TEST ORDERABLES [facility] [place] [address] * POC, GLUCOSE (09/28/2024 3:52 PM EST) Glucometer, POC 137 65 - 199 mg/dL 09/28/2024 3:53 PM EST [facility] Comment:Supplemental ranges: <140 mg/dL before meals <180 mg/dL all other times of the day. Blood CAPILLARY BLOOD / Unknown 09/28/2024 3:52 PM EST 09/28/2024 3:53 PM EST Dinesh Bauer MD POINT OF CARE TEST ORDERABLES Performing Organization Address [facility]/ZIP Co de Phone Number [facility] [place] [address] * POC, GLUCOSE (09/28/2024 12:19 PM EST) Glucometer, POC 163 65 - 199 mg/dL 09/28/2024 12:19 PM EST [facility] Comment:Supplemental ranges: <140 mg/dL before meals <180 mg/dL all other times of the day. Blood CAPILLARY BLOOD / Unknown 09/28/2024 12:19 PM EST 09/28/2024 12:20 PM EST Dinesh Bauer MD POINT OF CARE TEST ORDERABLES Performing Organization Address [facility] Co de Phone Number [facility] [place] [address] * POC, GLUCOSE (09/28/2024 7:54 AM EST) Glucometer, POC 161 65 - 199 mg/dL 09/28/2024 7:54 AM EST [facility] Comment:Supplemental ranges: <140 mg/dL before meals <180 mg/dL all other times of the day. Blood CAPILLARY BLOOD / Unknown 09/28/2024 7:54 AM EST 09/28/2024 7:54 AM EST Librado Patel MD POINT OF CARE TEST O RDERABLES Performing Organization Address City/[facility]/ZIP Co de Phone Number [facility] [place] [address] * (ABNORMAL) Troponin-T, High Sensitivity 3 Hour (09/28/2024 6:37 AM EST) Troponin-T, High Sensitivity 16(H) <=14 ng/L 09/28/2024 [...] troponin value can be found in the [facility] Test Catalog Troponin - https://[facility] servicesCTSpace.testcatalog.org/catalogs/565/files/59738 Reference: Fourth Orange Definition of Myocardial Infarction. Journal of the [place] [employer] 2018;72:5451-9780 Troponin-T, HS 3 hr delta 09/28/2024 7:25 AM [facility] Comment:Delta troponin value not calculated, sample collected outside of delta calculation time limit. Blood VENOUS BLOOD SPECIMEN / Unknown Venipuncture / Unknown 09/28/2024 6:37 AM EST 09/28/2024 6:53 AM EST Teresa Multani APRN CHEMISTRY ORDERABL ES [facility] [place] [address] * (ABNORMAL) Troponin-T, High Sensitivity 1 Hour (09/28/2024 5:00 AM EST) Troponin-T, High Sensitivity 16(H) <=14 ng/L 09/28/2024 5:40 AM EST [facility] Comment: [...] troponin value can be found in the [facility] Test Catalog Troponin - https://one-.testcatalog.org/catalogs/565/files/05651 Reference: Fourth Orange Definition of Myocardial Infarction. Journal of the [place] [employer] 2018;72:5400-4539 Troponin-T, HS 1 hr delta 1 ng/L 09/28/2024 5:40 AM EST [facility] Comment:The 1 hour Troponin T delta value is the absolute difference between the Troponin T concentrations of the initial and subsequent sample collected between 45 - 120 minutes following the initial collection. Blood BLOOD SAMPLE TAKEN FROM CENTRAL LINE / Unknown Venipuncture / Unknown 09/28/2024 5:00 AM EST 09/28/2024 5:08 AM EST Teresa Multani APRN CHEMISTRY ORDERABL ES [facility] [place] [address] * POC, GLUCOSE (09/28/2024 4:16 AM EST) Glucometer, POC 174 65 - 199 mg/dL 09/28/2024 4:17 AM EST [facility] Comment:Supplemental ranges: <140 mg/dL before meals <180 mg/dL all other times of the day. Blood CAPILLARY BLOOD / Unknown 09/28/2024 4:16 AM EST 09/28/2024 4:17 AM EST Librado Patel MD POINT OF CARE TEST O RDERABLES [facility] [place] [address] * XR Chest One View (09/28/2024 4:06 AM EST) WORKSTATION ID [id number] RAD Anatomical Region Laterality Modality Chest N/A Digital Radiogra phy Impressions 09/28/2024 4:12 AM EST 1. ??Limited examination. 2. ??Interval removal of the endotracheal catheter. 3. ??Stable position of other medical hardware. 4. ??Decreased but persistent patchy left retrocardiac airspace opacity, may be resolving atelectasis or pneumonia. Thank you for letting us participate in the care of this patient. ??If you are a health care provider and have any questions regarding this report, please contact the number below. ??For patients who have questions please contact the health ocular care technician that requested your imaging first. ? Narrative 09/28/2024 4:12 AM EST EXAMINATION: XR CHEST ONE VIEW CLINICAL HISTORY: chest pain TECHNIQUE: A single AP portable supine radiograph the chest was obtained. COMPARISON: Correlation is made to CT of the chest dated September 26, 2024. Comparison is made to multiple prior chest radiograph examinations, the most recent which is dated September 21, 2024. FINDINGS: Patient body habitus limits evaluation. There is a right subclavian central venous catheter present with tip overlying the mid superior vena cava. There is an enteric catheter present with tip outside the field of view, but below the left diaphragm. ??There is been interval removal of the endotracheal catheter. Multiple monitoring devices overlie the patient. There is a patchy left retrocardiac airspace opacity. ??The right lung is clear. There is no pleural effusion or pneumothorax. The trachea is midline. ??Hilar structures are limited evaluation. The cardiomediastinal contours are unchanged and within normal limits. Visualized structures within the superior abdomen and inferior neck are within normal limits. There are degenerative changes of visualized spine with endplate sclerosis and osteophyte formation. Procedure Note Marvin Decker DO - 09/28/2024 EXAMINATION: XR CHEST ONE VIEW CLINICAL HISTORY: chest pain TECHNIQUE: A single AP portable supine radiograph the chest wasobtained. COMPARISON: Correlation is made to CT of the chest dated September. Comparison is made to multiple prior chest radiograph examinations, themost recent which is dated September 21, 2024. FINDINGS: Patient body habitus limits evaluation. There is a right subclavian central venous catheter present with tipoverlying the mid superior vena cava. There is an enteric catheter present with tip outside the field of view,but below the left diaphragm. There is been interval removal of theendotracheal catheter. Multiple monitoring devices overlie the patient. There is a patchy left retrocardiac airspace opacity. The right lung isclear. There is no pleural effusion or pneumothorax. The trachea is midline. Hilar structures are limited evaluation. The cardiomediastinal contours are unchanged and within normal limits. Visualized structures within the superior abdomen and inferior neck arewithin normal limits. There are degenerative changes of visualized spine with endplate sclerosisand osteophyte formation. IMPRESSION 1. Limited examination. 2. Interval removal of the endotracheal catheter. 3. Stable position of other medical hardware. 4. Decreased but persistent patchy left retrocardiac airspace opacity,may be resolving atelectasis or pneumonia. Thank you for letting us participate in the care of this patient. If youare a health care provider and have any questions regarding this report,please contact the number below. For patients who have questions please contactthe health ocular care technician that requested your imaging first. Electronically signed by: Marvin Decker DO, [facility]([phone]), at 09/28/2024 4:12 AM Teresa Multani PULLMAN CLERK IMG DX ORDERABLES * EKG 12 Lead (09/28/2024 3:59 AM EST) Ventricular rate 104 BPM MUSE SYSTEM Atrial Rate 104 BPM MUSE SYSTEM P-R Interval 138 ms MUSE SYSTEM QRS Duration 64 ms MUSE SYSTEM Q-T Interval 342 ms MUSE SYSTEM QTC Calculated (Bezet) 449 ms MUSE SYSTEM Calculated P [place] 44 degrees MUSE SYSTEM Calculated R [place] -22 degrees MUSE SYSTEM Calculated T [place] 34 degrees MUSE SYSTEM INTERPRETATION Sinus tachycardia with Premature atrial complexes Low voltage QRS Cannot rule out Anterior infarct , age undetermined Abnormal ECG When compared with ECG of 16-SEP-2024 15:33, Premature atrial complexes are now Present Confirmed by MD Jose L, Abdiel ([id number]) on 09/28/2024 2:49:44 PM MUSE SYSTEM 09/28/2024 3:59 AM EST 09/28/2024 2:49 PM EST Eri Stovall PULLMAN CLERK ECG ORDERABLES MUSE SYSTEM * EKG 12 Lead (09/28/2024 3:59 AM EST) Ventricular rate 104 BPM MUSE SYSTEM Atrial Rate 104 BPM MUSE SYSTEM P-R Interval 138 ms MUSE SYSTEM QRS Duration 64 ms MUSE SYSTEM Q-T Interval 342 ms MUSE SYSTEM QTC Calculated (Bezet) 449 ms MUSE SYSTEM Calculated P [place] 44 degrees MUSE SYSTEM Calculated R [place] -22 degrees MUSE SYSTEM Calculated T [place] 34 degrees MUSE SYSTEM INTERPRETATION Sinus tachycardia with Premature atrial complexes Low voltage QRS Cannot rule out Anterior infarct , age undetermined Abnormal ECG When compared with ECG of 16-SEP-2024 15:33, Premature atrial complexes are now Present Confirmed by fellow Johanna Beatty ([id number]) on 09/29/2024 10:55:55 AM Confirmed by MD VERMA ARMIN ([id number]) on 09/29/2024 8:30:41 PM MUSE SYSTEM 09/28/2024 3:59 AM EST 09/29/2024 8:30 PM EST Librado Patel MD ECG ORDERABLES MUSE SYSTEM * (ABNORMAL) Scan, Peripheral Blood (09/28/2024 3:58 AM EST) RBC Morphology Abnormal 09/28/2024 4:58 AM EST [...] HEMATOLOGY ORDERABLE S [facility] [place] [address] * (ABNORMAL) Troponin-T, High Sensitivity (09/28/2024 3:58 AM EST) Pathologist [facility] Troponin-T, High Sensitivity Initial 15(H) <=14 ng/L 09/28/2024 4:34 AM EST [facility] Comment: [...] troponin value can be found in the [facility] Test Catalog Troponin - https://one-.testcatalog.org/catalogs/565/files/83363 Reference: Fourth Orange Definition of Myocardial Infarction. Journal of the [place] [employer] 2018;72:2471-0016 Blood VENOUS BLOOD SPECIMEN / Unknown Venipuncture / Unknown 09/28/2024 3:58 AM EST 09/28/2024 4:03 AM EST Teresa Multani APRN CHEMISTRY ORDERABL ES [facility] [place] [address] * (ABNORMAL) CBC (with Diff) (09/28/2024 3:58 AM EST) White Blood Cell 35.37(HHH ) 4.00 - 9.50 x10(3)/mc L 09/28/2024 4:58 AM [facility] Red Blood Cell 3.70(L) 4.00 - 5.21 x10(6)/mc L 09/28/2024 4:58 AM [facility] Hemoglobin 11.0(L) 11.7 - 15.5 g/dL 09/28/2024 4:58 AM [facility] Hematocrit 34.0(L) 35.7 - 45.8 % 09/28/2024 4:58 AM EST [facility] Mean Cell Volume 91.9 82.6 - 94.4 fL 09/28/2024 4:58 AM [facility] Mean Cell Hemoglobin 29.7 27.1 - 32.0 pg 09/28/2024 4:58 AM [facility] Mean Cell Hemoglobin Concentration 32.4 31.7 - 35.0 g/dL 09/28/2024 4:58 AM [facility] Platelet 443(H) 145 - 357 x10(3)/mc L 09/28/2024 4:58 AM [facility] Mean Platelet Volume 10.2 7.6 - 12.9 fL 09/28/2024 4:58 AM [facility] RDW Standard Deviation 43.8 37.0 - 46.0 fL 09/28/2024 4:58 AM [facility] RDW coefficient of variation 13.7 11.5 - 14.1 % 09/28/2024 4:58 AM [facility] NRBC% auto 0.0 % 09/28/2024 4:58 AM [facility] NRBC Absolute <0.01 <0.01 x10(3)/mc L 09/28/2024 4:58 AM [facility] Neutrophil % 87.0 % 09/28/2024 4:58 AM [facility] Comment:This is an appended report. These results have been appended to a previously preliminary verified report. Neutrophil Absolute (ANC) - Automated 30.79(H) 1.70 - 6.10 x10(3)/mc L 09/28/2024 4:58 AM [facility] Comment:This is an appended report. These results have been appended to a previously preliminary verified report. Lymph % 4.2 % 09/28/2024 4:58 AM [facility] Comment:This is an appended report. These results have been appended to a previously preliminary verified report. Lymph Absolute 1.50 0.90 - 3.20 x10(3)/mc L 09/28/2024 4:58 AM [facility] Comment:This is an appended report. These results have been appended to a previously preliminary verified report. Monocyte % 4.5 % 09/28/2024 4:58 AM [facility] Comment:This is an appended report. These results have been appended to a previously preliminary verified report. Monocyte Absolute 1.60(H) 0.30 - 0.90 x10(3)/mc L 09/28/2024 4:58 AM EST [facility] Comment:This is an appended report. These results have been appended to a previously preliminary verified report. Eos % 0.5 % 09/28/2024 4:58 AM [facility] Comment:This is an appended report. These results have been appended to a previously preliminary verified report. Eos Absolute 0.16 0.00 - 0.40 x10(3)/mc L 09/28/2024 4:58 AM EST [facility] Comment:This is an appended report. These results have been appended to a previously preliminary verified report. Basophil % 0.3 % 09/28/2024 4:58 AM [facility] Comment:This is an appended report. These results have been appended to a previously preliminary verified report. Baso Absolute 0.09 0.00 - 0.10 x10(3)/mc L 09/28/2024 4:58 AM EST [facility] Comment:This is an appended report. These results have been appended to a previously preliminary verified report. Immature Gran % 3.5 % 4:58 AM EST [facility] Comment:This is an appended report. These results have been appended to a previously preliminary verified report. Immature Gran Absolute 1.23(H) 0.00 - 0.04 x10(3)/mc L 09/28/2024 4:58 AM [facility] Comment:This is an appended report. These results have been appended to a previously preliminary verified report. Blood VENOUS BLOOD SPECIMEN / Unknown Venipuncture / Unknown 09/28/2024 3:58 AM EST 09/28/2024 4:03 AM EST Librado Patel MD HEMATOLOGY ORDERABLE S [facility] [place] [address] * Phosphorus (09/28/2024 3:58 AM EST) Phosphorus 2.7 2.5 - 4.5 mg/dL 09/28/2024 4:35 AM EST [facility] Blood VENOUS BLOOD SPECIMEN / Unknown Venipuncture / Unknown 09/28/2024 3:58 AM EST 09/28/2024 4:03 AM EST Librado Patel MD CHEMISTRY ORDERABLES Performing Organization Address [facility] Co de Phone Number [facility] [place] [address] * Magnesium (09/28/2024 3:58 AM EST) Pathologist [facility] Magnesium 0.82 0.69 - 1.07 mMol/L 09/28/2024 4:35 AM [facility] Blood VENOUS BLOOD SPECIMEN / Unknown Venipuncture / Unknown 09/28/2024 3:58 AM EST 09/28/2024 4:03 AM EST Librado Patel MD CHEMISTRY ORDERABLES Performing Organization Address City/[facility] Co de Phone Number [facility] [place] [address] * (ABNORMAL) Basic Metabolic Panel (09/28/2024 3:58 AM EST) [facility] Glucose 161 65 - 199 mg/dL 09/28/2024 4:35 AM [facility] Comment:Glucose Concentratio n >=200 mg/dL plus symptoms is consistent with Diabetes Mellitus. Blood Urea Nitrogen 21(H) 8 - 18 mg/dL 09/28/2024 4:35 AM [facility] Creatinine 0.49(L) 0.70 - 1.20 mg/dL 09/28/2024 4:35 AM [facility] Sodium 138 135 - 145 mMol/L 09/28/2024 4:35 AM [facility] Potassium 4.0 3.5 - 5.0 mMol/L 09/28/2024 4:35 AM [facility] Chloride 106 98 - 107 mMol/L 09/28/2024 4:35 AM [facility] Carbon Dioxide 22 22 - 31 mMol/L 09/28/2024 4:35 AM [facility] Anion Gap 10 5 - 15 mMol/L 09/28/2024 4:35 AM [facility] Calcium 8.3(L) 8.5 - 10.5 mg/dL 09/28/2024 4:35 AM [facility] Est Glomerular Filtration Rate - Female 100 mL/min/1. 73 m?? 09/28/2024 4:35 AM [facility] Comment: This patient's estimated GFR was [...] 09/28/2024 4:03 AM EST Librado Patel MD CHEMISTRY ORDERABLES [facility] [place] [address] * POC, GLUCOSE (09/27/2024 11:39 PM EST) [facility] Signature Glucometer, POC 125 65 - 199 mg/dL 09/27/2024 11:40 PM [facility] Comment:Supplemental ranges: <140 mg/dL before meals <180 mg/dL all other times of the day. Blood CAPILLARY BLOOD / Unknown 09/27/2024 11:39 PM EST 09/27/2024 11:40 PM EST Librado Patel MD POINT OF CARE TEST O RDERABLES Performing Organization Address City/[facility]/ZIP Co de Phone Number [facility] [place] [address] * POC, GLUCOSE (09/27/2024 7:52 PM EST) Glucometer, POC 144 65 - 199 mg/dL 09/27/2024 7:53 PM EST [facility] Comment:Supplemental ranges: <140 mg/dL before meals <180 mg/dL all other times of the day. Blood CAPILLARY BLOOD / Unknown 09/27/2024 7:52 PM EST 09/27/2024 7:53 PM EST Librado Patel MD POINT OF CARE TEST O RDKALE Performing Organization Address [facility] Co de Phone Number [facility] [place] [address] * Potassium (09/27/2024 4:46 PM EST) Potassium 4.0 3.5 - 5.0 mMol/L 09/27/2024 5:24 PM EST [facility] Blood VENOUS BLOOD SPECIMEN / Unknown Venipuncture / Unknown 09/27/2024 4:46 PM EST 09/27/2024 5:00 PM EST Librado Patel MD CHEMISTRY ORDERABLES Performing Organization Address City/[facility]/ZIP Co de Phone Number [facility] [place] [address] * POC, GLUCOSE (09/27/2024 4:38 PM EST) Glucometer, POC 123 65 - 199 mg/dL 09/27/2024 4:38 PM EST [facility] Comment:Supplemental ranges: <140 mg/dL before meals <180 mg/dL all other times of the day. Blood CAPILLARY BLOOD / Unknown 09/27/2024 4:38 PM EST 09/27/2024 4:38 PM EST Librado Patel MD POINT OF CARE TEST O RDERABLES Performing Organization Address [facility]/ZIP Co de Phone Number [facility] [place] [address] * POC, GLUCOSE (09/27/2024 12:53 PM EST) Glucometer, POC 145 65 - 199 mg/dL 09/27/2024 12:54 PM EST [facility] Comment:Supplemental ranges: <140 mg/dL before meals <180 mg/dL all other times of the day. Blood CAPILLARY BLOOD / Unknown 09/27/2024 12:53 PM EST 09/27/2024 12:54 PM EST Librado Patel MD POINT OF CARE TEST O RDERABLES Performing Organization Address [facility] Co de Phone Number [facility] [place] [address] * C diff Screen (09/27/2024 8:46 AM [...] - GEN ERAL ORDERABLES Performing Organization Address City/[facility]/ZIP Co de Phone Number [facility] [place] [address] * C Diff PCR (09/27/2024 8:46 AM EST) Stool STOOL SPECIMEN / Unknown Non Blood Collection / Unknown 09/27/2024 8:46 AM EST 09/27/2024 8:59 AM EST Mariola Calixto MD MICROBIOLOGY - GEN ERAL ORDERABLES Performing Organization Address [facility]/ZIP Co de Phone Number [facility] [place] [address] * POC, GLUCOSE (09/27/2024 8:24 AM EST) Glucometer, POC 106 65 - 199 mg/dL 09/27/2024 8:25 AM EST [facility] Comment:Supplemental ranges: <140 mg/dL before meals <180 mg/dL all other times of the day. Blood CAPILLARY BLOOD / Unknown 09/27/2024 8:24 AM EST 09/27/2024 8:25 AM EST Mariola Calixto MD POINT OF CARE TEST ORDERABLES Performing Organization Address [facility] Co de Phone Number [facility] [place] [address] * POC, GLUCOSE (09/27/2024 3:40 AM EST) Glucometer, POC 148 65 - 199 mg/dL 09/27/2024 3:40 AM EST [facility] Comment:Supplemental ranges: <140 mg/dL before meals <180 mg/dL all other times of the day. Blood CAPILLARY BLOOD / Unknown 09/27/2024 3:40 AM EST 09/27/2024 3:40 AM EST Mariola Calixto MD POINT OF CARE TEST ORDERABLES Performing Organization Address City/[facility] Co de Phone Number [facility] [place] [address] * Magnesium (09/27/2024 1:38 AM EST) Magnesium 0.91 0.69 - 1.07 mMol/L 09/27/2024 2:19 AM [facility] Blood VENOUS BLOOD SPECIMEN / Unknown Venipuncture / Unknown 09/27/2024 1:38 AM EST 09/27/2024 1:50 AM EST Librado Patel MD CHEMISTRY ORDERABLES [facility] [place] [address] * (ABNORMAL) Basic Metabolic Panel (09/27/2024 1:38 AM EST) Glucose 148 65 - 199 mg/dL 09/27/2024 2:19 AM [facility] Comment:Glucose Concentratio n >=200 mg/dL plus symptoms is consistent with Diabetes Mellitus. Blood Urea Nitrogen 17 8 - 18 mg/dL 09/27/2024 2:19 AM [facility] Creatinine 0.51(L) 0.70 - 1.20 mg/dL 09/27/2024 2:19 AM [facility] Sodium 139 135 - 145 mMol/L 09/27/2024 2:19 AM [facility] Potassium 3.8 3.5 - 5.0 mMol/L 09/27/2024 2:19 AM [facility] Chloride 103 98 - 107 mMol/L 09/27/2024 2:19 AM [facility] Carbon Dioxide 25 22 - 31 mMol/L 09/27/2024 2:19 AM [facility] Anion Gap 11 5 - 15 mMol/L 09/27/2024 2:19 AM [facility] Calcium 8.5 8.5 - 10.5 mg/dL 09/27/2024 2:19 AM [facility] Est Glomerular Filtration Rate - Female 99 mL/min/1. 73 m?? 09/27/2024 2:19 AM [facility] Comment: This patient's estimated GFR was [...] SPECIMEN / Unknown Venipuncture / Unknown 09/27/2024 1:38 AM EST 09/27/2024 1:50 AM EST Librado Patel MD CHEMISTRY ORDERABLES [facility] [place] [address] * (ABNORMAL) CBC (with Diff) (09/27/2024 1:38 AM EST) White Blood Cell 39.03(HHH ) 4.00 - 9.50 x10(3)/mc L 09/27/2024 2:30 AM [facility] Red Blood Cell 4.12 4.00 - 5.21 x10(6)/mc L 09/27/2024 2:30 AM [facility] Hemoglobin 12.5 11.7 - 15.5 g/dL 09/27/2024 2:30 AM [facility] Hematocrit 37.4 35.7 - 45.8 % 09/27/2024 2:30 AM [facility] Mean Cell Volume 90.8 82.6 - 94.4 fL 09/27/2024 2:30 AM [facility] Mean Cell Hemoglobin 30.3 27.1 - 32.0 pg 09/27/2024 2:30 AM [facility] Mean Cell Hemoglobin Concentration 33.4 31.7 - 35.0 g/dL 09/27/2024 2:30 AM [facility] Platelet 510(H) 145 - 357 x10(3)/mc L 09/27/2024 2:30 AM [facility] Mean Platelet Volume 10.4 7.6 - 12.9 fL 09/27/2024 2:30 AM [facility] RDW Standard Deviation 42.5 37.0 - 46.0 fL 09/27/2024 2:30 AM [facility] RDW coefficient of variation 13.3 11.5 - 14.1 % 09/27/2024 2:30 AM [facility] NRBC% auto 0.2 % 09/27/2024 2:30 AM [facility] NRBC Absolute 0.06(H) <0.01 x10(3)/mc L 09/27/2024 2:30 AM [facility] Neutrophil % 85.1 % 09/27/2024 2:30 AM [facility] Neutrophil Absolute (ANC) - Automated 33.22(H) 1.70 - 6.10 x10(3)/mc L 09/27/2024 2:30 AM [facility] Lymph % 4.6 % 09/27/2024 2:30 AM [facility] Lymph Absolute 1.79 0.90 - 3.20 x10(3)/mc L 09/27/2024 2:30 AM [facility] Monocyte % 4.9 % 09/27/2024 2:30 AM [facility] Monocyte Absolute 1.93(H) 0.30 - 0.90 x10(3)/mc L 09/27/2024 2:30 AM [facility] Eos % 0.3 % 09/27/2024 2:30 AM [facility] Eos Absolute 0.10 0.00 - 0.40 x10(3)/mc L 09/27/2024 2:30 AM [facility] Basophil % 0.4 % 09/27/2024 2:30 AM [facility] Baso Absolute 0.16(H) 0.00 - 0.10 x10(3)/mc L 09/27/2024 2:30 AM EST [facility] Immature Gran % 4.7 % 2:30 AM EST [facility] Immature Gran Absolute 1.83(H) 0.00 - 0.04 x10(3)/mc L 09/27/2024 2:30 AM EST [facility] Blood VENOUS BLOOD SPECIMEN / Unknown Venipuncture / Unknown 09/27/2024 1:38 AM EST 09/27/2024 1:50 AM EST Librado Patel MD HEMATOLOGY ORDERABLE S [facility] [place] [address] * Phosphorus (09/27/2024 1:38 AM EST) Phosphorus 4.0 2.5 - 4.5 mg/dL 09/27/2024 2:19 AM EST [facility] Blood VENOUS BLOOD SPECIMEN / Unknown Venipuncture / Unknown 09/27/2024 1:38 AM EST 09/27/2024 1:50 AM EST Librado Paetl MD CHEMISTRY ORDERABLES Performing Organization Address City/[facility] Co de Phone Number [facility] [place] [address] * POC, GLUCOSE (09/26/2024 11:30 PM EST) Glucometer, POC 121 65 - 199 mg/dL 09/26/2024 11:31 PM EST [facility] Comment:Supplemental ranges: <140 mg/dL before meals <180 mg/dL all other times of the day. Blood CAPILLARY BLOOD / Unknown 09/26/2024 11:30 PM EST 09/26/2024 11:31 PM EST Mariola Calixto MD POINT OF CARE TEST ORDERABLES Performing Organization Address City/[facility]/ZIP Co de Phone Number [facility] [place] [address] * POC, GLUCOSE (09/26/2024 7:27 PM EST) Glucometer, POC 159 65 - 199 mg/dL 09/26/2024 7:27 PM EST [facility] Comment:Supplemental ranges: <140 mg/dL before meals <180 mg/dL all other times of the day. Blood CAPILLARY BLOOD / Unknown 09/26/2024 7:27 PM EST 09/26/2024 7:27 PM EST Mariola Calixto MD POINT OF CARE TEST ORDERABLES Performing Organization Address City/[facility]/ZIP Co de Phone Number [facility] [place] [address] * POC, GLUCOSE (09/26/2024 3:12 PM EST) Glucometer, POC 115 65 - 199 mg/dL 09/26/2024 3:12 PM EST [facility] Comment:Supplemental ranges: <140 mg/dL before meals <180 mg/dL all other times of the day. Blood CAPILLARY BLOOD / Unknown 09/26/2024 3:12 PM EST 09/26/2024 3:12 PM EST Mariola Calixto MD POINT OF CARE TEST ORDERABLES Performing Organization Address City/[facility]/ZIP Co de Phone Number [facility] [place] [address] * Blood culture (09/26/2024 2:53 PM EST) Blood Culture No growth at 120 hours 10/01/2024 4:02 PM EST [facility] Blood VENOUS BLOOD SPECIMEN / Unknown Venipuncture / Unknown 09/26/2024 2:53 PM EST 09/26/2024 2:59 PM EST Jah Altman APRN MICROBIOLOGY - BLO OD ORDERABLES [facility] [place] [address] * Blood culture (09/26/2024 2:42 PM EST) Blood Culture No growth at 120 hours 10/01/2024 4:02 PM EST [facility] Blood VENOUS BLOOD SPECIMEN / Unknown Venipuncture / Unknown 09/26/2024 2:42 PM EST 09/26/2024 2:59 PM EST Jah Bricenosandraivan PULLMAN CLERK MICROBIOLOGY - BLO OD ORDERABLES [facility] [place] [address] * (ABNORMAL) CT Abdomen & Pelvis w Contrast (09/26/2024 1:37 PM EST) WORKSTATION ID [id number] RAD Anatomical Region Laterality Modality Abdomen, Pelvis [...] who have questions please contact the health ocular care technician that requested your imaging first. ? Electronically signed by: Marvin Decker DO, [facility] ([phone]), at 09/26/2024 1:54 PM Narrative 09/26/2024 1:54 PM EST EXAMINATION: * [...] body habitus and arm positioning limits evaluation. Slot Floorman Images: Noncontributory. CT OF THE CHEST: Pulmonary [...] sclerosis and osteophyte formation. Jah Altman APRN [facility] [place] CT ORDERABLES * CT Head wo Contrast (Generic) (09/26/2024 1:37 PM EST) [employer] WORKSTATION ID [id number] RAD Anatomical Region Laterality Modality Head Computed Tomogra phy Impressions 09/26/2024 2:26 PM EST 1. ??Stable right-sided parenchymal and subdural hemorrhages, associated mass effect and midline shift. 2. ??Stable left intraventricular hemorrhage. 3. ??No new or enlarging hemorrhages or extra-axial collections. Thank you for letting us participate in the care of this patient. ??If you are a health care provider and have any questions regarding this report, please contact the number below. ??For patients who have questions please contact the health ocular care technician that requested your imaging first. ? Electronically signed by: Smiley Cordova MD, [facility] ([phone]), at 09/26/2024 2:26 PM Narrative 09/26/2024 2:26 PM EST EXAMINATION: CT HEAD WO CONTRAST (GENERIC) CLINICAL HISTORY: s/p drain removal 4-5 days ago, worsening forced gaze, increased leukocytosis TECHNIQUE: CT head performed without intravenous contrast administration. COMPARISON: CT head 09/22/2024 FINDINGS: Large right-sided craniotomy, with overlying skin stacey in place. Slightly decreased subgaleal fluid superficial to the surgical site. 5 mm right convexity subdural hemorrhage is unchanged. Slightly decreased attenuation of right parietotemporal and occipital hemorrhages with extension into the posterior limb of the internal capsule, thalamus and right dorsal midbrain, which are unchanged in extent with similar moderate surrounding vasogenic edema. Mass effect on the right lateral ventricle, right hemispheric sulcal effacement, and 8 mm right to left midline shift are unchanged. Small volume subdural hematoma along the right tentorium, unchanged. Hemorrhage layering in the occipital horn of the left lateral ventricle, stable. No new intracranial hemorrhage. Stable ventricular caliber, without decompensation. No new loss of deluca-white differentiation is appreciated. Foramen magnum and basilar cisterns are patent. 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 Procedure Note Smiley Cordova MD - 09/26/2024 EXAMINATION: CT HEAD WO CONTRAST (GENERIC) CLINICAL HISTORY: s/p drain removal 4-5 days ago, worsening forced gaze, increased leukocytosis TECHNIQUE: CT head performed without intravenous contrast administration. COMPARISON: CT head 09/22/2024 FINDINGS: Large right-sided craniotomy, with overlying skin stacey in place.Slightly decreased subgaleal fluid superficial to the surgical site. 5 mm rightconvexity subdural hemorrhage is unchanged. Slightly decreased attenuation of right parietotemporal and occipital hemorrhages with extension into the posterior limb of the internalcapsule, thalamus and right dorsal midbrain, which are unchanged in extent withsimilar moderate surrounding vasogenic edema. Mass effect on the right lateral ventricle, right hemispheric sulcal effacement, and 8 mm right to leftmidline shift are unchanged. Small volume subdural hematoma along the right tentorium, unchanged. Hemorrhage layering in the occipital horn of the left lateral ventricle,stable. No new intracranial hemorrhage. Stable ventricular caliber, without decompensation. No new loss of deluca-white differentiation is appreciated. Foramen magnumand basilar cisterns are patent. Right medial occipital volume loss consistent with prior infarct,unchanged. IMPRESSION 1. Stable right-sided parenchymal and subdural hemorrhages, associatedmass effect and midline shift. 2. Stable left intraventricular hemorrhage. 3. No new or enlarging hemorrhages or extra-axial collections. Thank you for letting us participate in the care of this patient. If youare a health care provider and have any questions regarding this report,please contact the number below. For patients who have questions please contactthe health ocular care technician that requested your imaging first. Electronically signed by: Smiley Cordova MD, [facility]([phone]), at 09/26/2024 2:26 PM Marisela Cartwright PULLMAN CLERK IMG CT ORDERABLES * (ABNORMAL) CT Angiogram Chest for Pulmonary Embolus w Contrast (09/26/2024 1:37 PM EST) WORKSTATION ID [id number] RAD Anatomical Region Laterality Modality Chest Computed [...] who have questions please contact the health ocular care technician that requested your imaging first. ? Electronically signed by: Marvin Decker DO, [facility] ([phone]), at 09/26/2024 1:54 PM Narrative 09/26/2024 1:54 PM EST EXAMINATION: * [...] body habitus and arm positioning limits evaluation. Slot Floorman Images: Noncontributory. CT OF THE CHEST: Pulmonary [...] osteophyte formation. Resulting Agency Comment Unexpected Finding Mariesla Cartwright PULLMAN CLERK IMG CT ORDERABLES * Potassium (09/26/2024 12:16 PM EST) Potassium 4.2 3.5 - 5.0 mMol/L 09/26/2024 1:00 PM EST [facility] Blood VENOUS BLOOD SPECIMEN / Unknown Central/PICC Line / Unknown 09/26/2024 12:16 PM EST 09/26/2024 12:24 PM EST Librado Patel MD CHEMISTRY ORDERABLES [facility] [place] [address] * POC, GLUCOSE (09/26/2024 11:27 AM EST) Glucometer, POC 110 65 - 199 mg/dL 09/26/2024 11:28 AM EST [facility] Comment:Supplemental ranges: <140 mg/dL before meals <180 mg/dL all other times of the day. Blood CAPILLARY BLOOD / Unknown 09/26/2024 11:27 AM EST 09/26/2024 11:28 AM EST Mariola Calixto MD POINT OF CARE TEST ORDERABLES Performing Organization Address City/[facility]/ZIP Co de Phone Number [facility] [place] [place] [address] * POC, GLUCOSE (09/26/2024 7:52 AM EST) Glucometer, POC 161 65 - 199 mg/dL 09/26/2024 8:04 AM EST [facility] Comment:Supplemental ranges: <140 mg/dL before meals <180 mg/dL all other times of the day. Blood CAPILLARY BLOOD / Unknown 09/26/2024 7:52 AM EST 09/26/2024 8:05 AM EST Mariola Calixto MD POINT OF CARE TEST ORDERABLES Performing Organization Address [facility]/ZIP Co de Phone Number [facility] [place] [address] * CK (09/26/2024 6:35 AM EST) Creatine Kinase 78 0 - 160 unit/L 09/26/2024 7:46 AM EST [facility] Blood VENOUS BLOOD SPECIMEN / Unknown Venipuncture / Unknown 09/26/2024 6:35 AM EST 09/26/2024 6:40 AM EST Jah Altman APRN CHEMISTRY ORDERABL ES Performing Organization Address City/[facility] Co de Phone Number [facility] [place] [address] * Prolactin (09/26/2024 6:35 AM EST) Prolactin 23.0 4.8 - 23.3 ng/ml 09/26/2024 7:26 AM EST [facility] Blood VENOUS BLOOD SPECIMEN / Unknown Venipuncture / Unknown 09/26/2024 6:35 AM EST 09/26/2024 6:40 AM EST Jah Altman PULLMAN CLERK CHEMISTRY ORDERABL ES [facility] [place] [address] * (ABNORMAL) Hepatic Function Panel (09/26/2024 6:35 AM EST) Albumin 2.7(L) 3.2 - 5.2 g/dL 09/26/2024 7:19 AM [facility] Aspartate Aminotransferase 28 <=30 unit/L 09/26/2024 7:19 AM [facility] Alanine Aminotransferase 72(H) 0 - 30 unit/L 09/26/2024 7:19 AM [facility] Alkaline Phosphatase 81 35 - 105 unit/L 09/26/2024 7:19 AM [facility] Bilirubin, Total 0.4 <=1.3 mg/dL 09/26/2024 7:19 AM [facility] Bilirubin, Direct <0.2 0.0 - 0.3 mg/dL 09/26/2024 7:19 AM [facility] Protein, Total 5.2(L) 6.1 - 8.0 g/dL 09/26/2024 7:19 AM [facility] Blood VENOUS BLOOD SPECIMEN / Unknown Venipuncture / Unknown 09/26/2024 6:35 AM EST 09/26/2024 6:40 AM EST Jah Nelson Janakpatricia FONSECAN CHEMISTRY ORDERABL ES [facility] [place] [address] * (ABNORMAL) Basic Metabolic Panel (09/26/2024 6:35 AM EST) Glucose 153 65 - 199 mg/dL 09/26/2024 7:19 AM [facility] Comment:Glucose Concentratio n >=200 mg/dL plus symptoms is consistent with Diabetes Mellitus. Blood Urea Nitrogen 23(H) 8 - 18 mg/dL 09/26/2024 7:19 AM [facility] Creatinine 0.53(L) 0.70 - 1.20 mg/dL 09/26/2024 7:19 AM [facility] Sodium 137 135 - 145 mMol/L 09/26/2024 7:19 AM [facility] Potassium 3.7 3.5 - 5.0 mMol/L 09/26/2024 7:19 AM [facility] Chloride 104 98 - 107 mMol/L 09/26/2024 7:19 AM [facility] Carbon Dioxide 23 22 - 31 mMol/L 09/26/2024 7:19 AM [facility] Anion Gap 10 5 - 15 mMol/L 09/26/2024 7:19 AM [facility] Calcium 8.1(L) 8.5 - 10.5 mg/dL 09/26/2024 7:19 AM [facility] Est Glomerular Filtration Rate - Female 98 mL/min/1. 73 m?? 09/26/2024 7:19 AM [facility] Comment: This patient's estimated GFR was [...] 6:35 AM EST 09/26/2024 6:40 AM EST Librado Patel MD CHEMISTRY ORDERABLES Performing Organization Address City/[facility] Co de Phone Number [facility] [place] [address] * Phosphorus (09/26/2024 6:35 AM EST) Phosphorus 3.3 2.5 - 4.5 mg/dL 09/26/2024 7:19 AM EST [facility] Blood VENOUS BLOOD SPECIMEN / Unknown Venipuncture / Unknown 09/26/2024 6:35 AM EST 09/26/2024 6:40 AM EST Librado Patel MD CHEMISTRY ORDERABLES Performing Organization Address [facility] Co de Phone Number [facility] [place] [address] * POC, GLUCOSE (09/26/2024 3:23 AM EST) Glucometer, POC 91 65 - 199 mg/dL 09/26/2024 3:24 AM EST [facility] Comment:Supplemental ranges: <140 mg/dL before meals <180 mg/dL all other times of the day. Blood CAPILLARY BLOOD / Unknown 09/26/2024 3:23 AM EST 09/26/2024 3:24 AM EST Mariola Calixto MD POINT OF CARE TEST ORDERABLES Performing Organization Address City/[facility]/ZIP Co de Phone Number [facility] [place] [address] * Lactate, Whole Blood (09/26/2024 12:31 AM EDT) Lactate, Whole Blood 1.7 0.5 - 2.2 mmol/L 09/26/2024 12:50 AM EDT [facility] Blood VENOUS BLOOD SPECIMEN / Unknown Venipuncture / Unknown 09/26/2024 12:31 AM EDT 09/26/2024 12:46 AM EDT Mariola Calixto MD CHEMISTRY ORDERABL ES [facility] [place] [address] * Magnesium (09/26/2024 12:31 AM EDT) Magnesium 0.78 0.69 - 1.07 mMol/L 09/26/2024 1:32 AM EDT [facility] Blood VENOUS BLOOD SPECIMEN / Unknown Venipuncture / Unknown 09/26/2024 12:31 AM EDT 09/26/2024 12:46 AM EDT Librado Patel MD CHEMISTRY ORDERABLES Performing Organization Address City/[facility]/ZIP Co de Phone Number [facility] [place] [address] * (ABNORMAL) CBC (with Diff) (09/26/2024 12:31 AM EDT) White Blood Cell 30.94(HHH ) 4.00 - 9.50 x10(3)/mc L 09/26/2024 1:12 AM EDT [facility] Red Blood Cell 3.53(L) 4.00 - 5.21 x10(6)/mc L 09/26/2024 1:12 AM EDT [facility] Hemoglobin 10.7(L) 11.7 - 15.5 g/dL 09/26/2024 1:12 AM EDT [facility] Hematocrit 32.2(L) 35.7 - 45.8 % 09/26/2024 1:12 AM EDT [facility] Mean Cell Volume 91.2 82.6 - 94.4 fL 09/26/2024 1:12 AM EDT [facility] Mean Cell Hemoglobin 30.3 27.1 - 32.0 pg 09/26/2024 1:12 AM EDT [facility] Mean Cell Hemoglobin Concentration 33.2 31.7 - 35.0 g/dL 09/26/2024 1:[address] [facility] Platelet 434(H) 145 - 357 x10(3)/mc L 09/26/2024 1:[address] [facility] Mean Platelet Volume 10.7 7.6 - 12.9 fL 09/26/2024 1:[address] [facility] RDW Standard Deviation 42.4 37.0 - 46.0 fL 09/26/2024 1:[address] [facility] RDW coefficient of variation 13.0 11.5 - 14.1 % 09/26/2024 1:[address] [facility] NRBC% auto 0.2 % 09/26/2024 1:[address] [facility] NRBC Absolute 0.05(H) <0.01 x10(3)/mc L 09/26/2024 1:[address] [facility] Neutrophil % 75.1 % 09/26/2024 1:[address] [facility] Neutrophil Absolute (ANC) - Automated 23.25(H) 1.70 - 6.10 x10(3)/mc L 09/26/2024 1:[address] [facility] Lymph % 10.8 % 09/26/2024 1:[address] [facility] Lymph Absolute 3.33(H) 0.90 - 3.20 x10(3)/mc L 09/26/2024 1:[address] [facility] Monocyte % 6.8 % 09/26/2024 1:[address] [facility] Monocyte Absolute 2.09(H) 0.30 - 0.90 x10(3)/mc L 09/26/2024 1:[address] [facility] Eos % 0.2 % 09/26/2024 1:[address] [facility] Eos Absolute 0.06 0.00 - 0.40 x10(3)/mc L 09/26/2024 1:12 AM EDT [facility] Basophil % 0.3 % 09/26/2024 1:12 AM EDT [facility] Baso Absolute 0.10 0.00 - 0.10 x10(3)/mc L 09/26/2024 1:12 AM EDT [facility] Immature Gran % 6.8 % 1:12 AM EDT [facility] Immature Gran Absolute 2.11(H) 0.00 - 0.04 x10(3)/mc L 09/26/2024 1:12 AM EDT [facility] Blood VENOUS BLOOD SPECIMEN / Unknown Venipuncture / Unknown 09/26/2024 12:31 AM EDT 09/26/2024 12:46 AM EDT Librado Patel MD HEMATOLOGY ORDERABLE S Performing Organization Address City/State/[facility] Co de Phone Number [facility] [place] [address] * (ABNORMAL) Basic Metabolic Panel (09/26/2024 12:31 AM EDT) Glucose 179 65 - 199 mg/dL 09/26/2024 1:32 AM EDT [facility] Comment:Glucose Concentratio n >=200 mg/dL plus symptoms is consistent with Diabetes Mellitus. Blood Urea Nitrogen 26(H) 8 - 18 mg/dL 09/26/2024 1:32 AM EDT [facility] Creatinine 0.56(L) 0.70 - 1.20 mg/dL 09/26/2024 1:32 AM EDT [facility] Sodium 137 135 - 145 mMol/L 09/26/2024 1:32 AM EDT [facility] Potassium 3.7 3.5 - 5.0 mMol/L 09/26/2024 1:32 AM EDT [facility] Chloride 104 98 - 107 mMol/L 09/26/2024 1:32 AM EDT [facility] Carbon Dioxide 23 22 - 31 mMol/L 09/26/2024 1:32 AM EDT [facility] Anion Gap 10 5 - 15 mMol/L 09/26/2024 1:32 AM EDT [facility] Calcium 7.9(L) 8.5 - 10.5 mg/dL 09/26/2024 1:32 AM EDT [facility] Est Glomerular Filtration Rate - Female 97 mL/min/1. 73 m?? 09/26/2024 1:32 AM EDT [facility] Comment: This patient's [...] 12:31 AM EDT 09/26/2024 12:46 AM EDT Librado Patel MD CHEMISTRY ORDERABLES [facility] [place] [address] * Phosphorus (09/26/2024 12:31 AM EDT) Phosphorus 3.1 2.5 - 4.5 mg/dL 09/26/2024 1:32 AM EDT [facility] Blood VENOUS BLOOD SPECIMEN / Unknown Venipuncture / Unknown 09/26/2024 12:31 AM EDT 09/26/2024 12:46 AM EDT Librado Patel MD CHEMISTRY ORDERABLES [facility] [place] [address] * POC, GLUCOSE (09/26/2024 12:06 AM EDT) Glucometer, POC 196 65 - 199 mg/dL 09/26/2024 12:07 AM EDT [facility] Comment:Supplemental ranges: <140 mg/dL before meals <180 mg/dL all other times of the day. Blood CAPILLARY BLOOD / Unknown 09/26/2024 12:06 AM EDT 09/26/2024 12:07 AM EDT Mariola Calixto MD POINT OF CARE TEST ORDERABLES [facility] [place] [address] * POC, GLUCOSE (09/25/2024 7:41 PM EDT) Glucometer, POC 178 65 - 199 mg/dL 09/25/2024 7:41 PM EDT [facility] Comment:Supplemental ranges: <140 mg/dL before meals <180 mg/dL all other times of the day. Blood CAPILLARY BLOOD / Unknown 09/25/2024 7:41 PM EDT 09/25/2024 7:41 PM EDT Mariola Calixto MD POINT OF CARE TEST ORDERABLES [facility] [place] [address] * POC, GLUCOSE (09/25/2024 4:01 PM EDT) Glucometer, POC 150 65 - 199 mg/dL 09/25/2024 4:01 PM EDT [facility] Comment:Supplemental ranges: <140 mg/dL before meals <180 mg/dL all other times of the day. Blood CAPILLARY BLOOD / Unknown 09/25/2024 4:01 PM EDT 09/25/2024 4:02 PM EDT Mariola Calixto MD POINT OF CARE TEST ORDERABLES Performing Organization Address City/[facility]/ZIP Co de Phone Number [facility] [place] [address] * POC, GLUCOSE (09/25/2024 11:59 AM EDT) Glucometer, POC 130 65 - 199 mg/dL 09/25/2024 12:00 PM EDT [facility] Comment:Supplemental ranges: <140 mg/dL before meals <180 mg/dL all other times of the day. Blood CAPILLARY BLOOD / Unknown 09/25/2024 11:59 AM EDT 09/25/2024 12:00 PM EDT Mariola Calixto MD POINT OF CARE TEST ORDERABLES Performing Organization Address [facility] Co de Phone Number [facility] [place] [address] * POC, GLUCOSE (09/25/2024 7:46 AM EDT) Glucometer, POC 158 65 - 199 mg/dL 09/25/2024 7:46 AM EDT [facility] Comment:Supplemental ranges: <140 mg/dL before meals <180 mg/dL all other times of the day. Blood CAPILLARY BLOOD / Unknown 09/25/2024 7:46 AM EDT 09/25/2024 7:47 AM EDT Mariola Calixto MD POINT OF CARE TEST ORDERABLES Performing Organization Address City/[facility]/ZIP Co de Phone Number [facility] [place] [address] * Magnesium (09/25/2024 4:29 AM EDT) Magnesium 0.91 0.69 - 1.07 mMol/L 09/25/2024 5:09 AM EDT [facility] Blood VENOUS BLOOD SPECIMEN / Unknown Venipuncture / Unknown 09/25/2024 4:29 AM EDT 09/25/2024 4:35 AM EDT Librado Patel MD CHEMISTRY ORDERABLES [facility] [place] [address] * (ABNORMAL) Basic Metabolic Panel (09/25/2024 4:29 AM EDT) Glucose 185 65 - 199 mg/dL 09/25/2024 5:09 AM EDT [facility] Comment:Glucose Concentratio n >=200 mg/dL plus symptoms is consistent with Diabetes Mellitus. Blood Urea Nitrogen 28(H) 8 - 18 mg/dL 09/25/2024 5:[address] [facility] Creatinine 0.49(L) 0.70 - 1.20 mg/dL 09/25/2024 5:[address] [facility] Sodium 138 135 - 145 mMol/L 09/25/2024 5:[address] [facility] Potassium 4.1 3.5 - 5.0 mMol/L 09/25/2024 5:[address] [facility] Chloride 102 98 - 107 mMol/L 09/25/2024 5:[address] [facility] Carbon Dioxide 24 22 - 31 mMol/L 09/25/2024 5:[address] [facility] Anion Gap 12 5 - 15 mMol/L 09/25/2024 5:[address] [facility] Calcium 8.4(L) 8.5 - 10.5 mg/dL 09/25/2024 5:[address] [facility] Est Glomerular Filtration Rate - Female 100 mL/min/1. 73 m?? 09/25/2024 5:[address] [facility] Comment: This patient's estimated GFR [...] BLOOD SPECIMEN / Unknown Venipuncture / Unknown 09/25/2024 4:29 AM EDT 09/25/2024 4:35 AM EDT Librado Patel MD CHEMISTRY ORDERABLES [facility] [place] [address] * (ABNORMAL) CBC (with Diff) (09/25/2024 4:29 AM EDT) White Blood Cell 27.24(H) 4.00 - 9.50 x10(3)/mc L 09/25/2024 4:[address] [facility] Red Blood Cell 3.57(L) 4.00 - 5.21 x10(6)/mc L 09/25/2024 4:[address] [facility] Hemoglobin 10.5(L) 11.7 - 15.5 g/dL 09/25/2024 4:[address] [facility] Hematocrit 31.9(L) 35.7 - 45.8 % 09/25/2024 4:[address] [facility] Mean Cell Volume 89.4 82.6 - 94.4 fL 09/25/2024 4:[address] [facility] Mean Cell Hemoglobin 29.4 27.1 - 32.0 pg 09/25/2024 4:[address] [facility] Mean Cell Hemoglobin Concentration 32.9 31.7 - 35.0 g/dL 09/25/2024 4:[address] [facility] Platelet 379(H) 145 - 357 x10(3)/mc L 09/25/2024 4:[address] [facility] Mean Platelet Volume 10.8 7.6 - 12.9 fL 09/25/2024 4:[address] [facility] RDW Standard Deviation 40.4 37.0 - 46.0 fL 09/25/2024 4:[address] [facility] RDW coefficient of variation 12.5 11.5 - 14.1 % 09/25/2024 4:[address] [facility] NRBC% auto 0.1 % 09/25/2024 4:[address] [facility] NRBC Absolute 0.03(H) <0.01 x10(3)/mc L 09/25/2024 4:[address] [facility] Neutrophil % 85.4 % 09/25/2024 4:[address] [facility] Neutrophil Absolute (ANC) - Automated 23.24(H) 1.70 - 6.10 x10(3)/mc L 09/25/2024 4:[address] [facility] Lymph % 3.7 % 09/25/2024 4:[address] [facility] Lymph Absolute 1.02 0.90 - 3.20 x10(3)/mc L 09/25/2024 4:[address] [facility] Monocyte % 5.4 % 09/25/2024 4:[address] [facility] Monocyte Absolute 1.48(H) 0.30 - 0.90 x10(3)/mc L 09/25/2024 4:[address] [facility] Eos % 0.0 % 09/25/2024 4:[address] [facility] Eos Absolute <0.04 0.00 - 0.40 x10(3)/mc L 09/25/2024 4:[address] [facility] Basophil % 0.3 % 09/25/2024 4:[address] [facility] Baso Absolute 0.08 0.00 - 0.10 x10(3)/mc L 09/25/2024 4:41 AM EDT [facility] Immature Gran % 5.2 % 4:41 AM EDT [facility] Immature Gran Absolute 1.41(H) 0.00 - 0.04 x10(3)/mc L 09/25/2024 4:41 AM EDT [facility] Blood VENOUS BLOOD SPECIMEN / Unknown Venipuncture / Unknown 09/25/2024 4:29 AM EDT 09/25/2024 4:35 AM EDT Librado Patel MD HEMATOLOGY ORDERABLE S [facility] [place] [address] * Phosphorus (09/25/2024 4:29 AM EDT) Phosphorus 3.4 2.5 - 4.5 mg/dL 09/25/2024 5:09 AM EDT [facility] Blood VENOUS BLOOD SPECIMEN / Unknown Venipuncture / Unknown 09/25/2024 4:29 AM EDT 09/25/2024 4:35 AM EDT Librado Patel MD CHEMISTRY ORDERABLES [facility] [place] [address] * POC, GLUCOSE (09/25/2024 3:46 AM EDT) Glucometer, POC 159 65 - 199 mg/dL 09/25/2024 3:47 AM EDT [facility] Comment:Supplemental ranges: <140 mg/dL before meals <180 mg/dL all other times of the day. Blood CAPILLARY BLOOD / Unknown 09/25/2024 3:46 AM EDT 09/25/2024 3:47 AM EDT Mariola Calixto MD POINT OF CARE TEST ORDERABLES Performing Organization Address City/[facility]/ZIP Co de Phone Number [facility] [place] [address] * POC, GLUCOSE (09/24/2024 11:50 PM EDT) Glucometer, POC 145 65 - 199 mg/dL 09/24/2024 11:50 PM EDT [facility] Comment:Supplemental ranges: <140 mg/dL before meals <180 mg/dL all other times of the day. Blood CAPILLARY BLOOD / Unknown 09/24/2024 11:50 PM EDT 09/24/2024 11:50 PM EDT Mariola Calixto MD POINT OF CARE TEST ORDERABLES Performing Organization Address [facility] Co de Phone Number [facility] [place] [address] * POC, GLUCOSE (09/24/2024 7:50 PM EDT) Glucometer, POC 166 65 - 199 mg/dL 09/24/2024 7:50 PM EDT [facility] Comment:Supplemental ranges: <140 mg/dL before meals <180 mg/dL all other times of the day. Blood CAPILLARY BLOOD / Unknown 09/24/2024 7:50 PM EDT 09/24/2024 7:50 PM EDT Mariola Calixto MD POINT OF CARE TEST ORDERABLES Performing Organization Address City/[facility]/ZIP Co de Phone Number [facility] [place] [address] * (ABNORMAL) POC, GLUCOSE (09/24/2024 3:18 PM EDT) Glucometer, POC 202(H) 65 - 199 mg/dL 09/24/2024 3:18 PM EDT [facility] Comment:Supplemental ranges: <140 mg/dL before meals <180 mg/dL all other times of the day. Blood CAPILLARY BLOOD / Unknown 09/24/2024 3:18 PM EDT 09/24/2024 3:18 PM EDT Mariola Calixto MD POINT OF CARE TEST ORDERABLES Performing Organization Address City/[facility]/ZIP Co de Phone Number [facility] [place] [address] * POC, GLUCOSE (09/24/2024 11:16 AM EDT) Glucometer, POC 182 65 - 199 mg/dL 09/24/2024 11:17 AM EDT [facility] Comment:Supplemental ranges: <140 mg/dL before meals <180 mg/dL all other times of the day. Blood CAPILLARY BLOOD / Unknown 09/24/2024 11:16 AM EDT 09/24/2024 11:17 AM EDT Mariola Calixto MD POINT OF CARE TEST ORDERABLES Performing Organization Address [facility]/ZIP Co de Phone Number [facility] [place] [address] * POC, GLUCOSE (09/24/2024 7:39 AM EDT) Glucometer, POC 170 65 - 199 mg/dL 09/24/2024 7:39 AM EDT [facility] Comment:Supplemental ranges: <140 mg/dL before meals <180 mg/dL all other times of the day. Blood CAPILLARY BLOOD / Unknown 09/24/2024 7:39 AM EDT 09/24/2024 7:40 AM EDT Mariola Calixto MD POINT OF CARE TEST ORDERABLES Performing Organization Address City/[facility]/ZIP Co de Phone Number [facility] [place] [address] * (ABNORMAL) Scan, Peripheral Blood (09/24/2024 5:00 AM EDT) RBC Morphology Abnormal 09/24/2024 5:47 AM EDT [facility] Platelet Estimate Normal Normal 024 5:47 AM EDT [facility] Polychromasia Present 09/24/2024 5:47 AM EDT [facility] Platelet Clumps Present(A) (none) 5:47 AM EDT [facility] WBC MORPHOLOGY See Comment(A) (none) 09/24/2024 5:47 AM EDT [facility] Comment:Hypersegmentation Blood VENOUS BLOOD SPECIMEN / Unknown 09/24/2024 5:00 AM EDT 09/24/2024 5:13 AM EDT Jah Altman APRN HEMATOLOGY ORDERAB LES Performing Organization Address City/[facility]/ZIP Co de Phone Number [facility] [place] [address] * Magnesium (09/24/2024 5:00 AM EDT) Magnesium 0.89 0.69 - 1.07 mMol/L 09/24/2024 5:50 AM EDT [facility] Blood VENOUS BLOOD SPECIMEN / Unknown 09/24/2024 5:00 AM EDT 09/24/2024 5:13 AM EDT Librado Patel MD CHEMISTRY ORDERABLES Performing Organization Address City/[facility]/ZIP Co de Phone Number [facility] [place] [address] * (ABNORMAL) Basic Metabolic Panel (09/24/2024 5:00 AM EDT) Glucose 202(H) 65 - 199 mg/dL 09/24/2024 5:50 AM EDT [facility] Comment:Glucose Concentratio n >=200 mg/dL plus symptoms is consistent with Diabetes Mellitus. Blood Urea Nitrogen 28(H) 8 - 18 mg/dL 09/24/2024 5:50 AM EDT [facility] Creatinine 0.51(L) 0.70 - 1.20 mg/dL 09/24/2024 5:50 AM EDT [facility] Sodium 138 135 - 145 mMol/L 09/24[facility]2024 [facility] Potassium 4.2 3.5 - 5.0 mMol/L 09/24/2024 5:50 AM EDT [facility] Chloride 102 98 - 107 mMol/L 09/24/2024 5:[facility] Carbon Dioxide 26 22 - 31 mMol/L 09/24/2024 5:[facility] Anion Gap 10 5 - 15 mMol/L 09/24/2024 5:50 [facility] Calcium 8.5 8.5 - 10.5 mg/dL 09/24/2024 5:50 [facility] Est Glomerular Filtration Rate - Female 99 mL/min/1. 73 m?? 09/24/2024 5:50 AM EDT [facility] Comment: This patient's [...] Foundation Blood VENOUS BLOOD SPECIMEN / Unknown 09/24/2024 5:00 AM EDT 09/24/2024 5:13 AM EDT Librado Patel MD CHEMISTRY ORDERABLES [facility] [place] [address] * (ABNORMAL) CBC (with Diff) (09/24/2024 5:00 AM EDT) [facility] White Blood Cell 19.25(H) 4.00 - 9.50 x10(3)/mc L 09/24/2024 5:[address] [facility] Red Blood Cell 3.34(L) 4.00 - 5.21 x10(6)/mc L 09/24/2024 5:[address] [facility] Hemoglobin 9.7(L) 11.7 - 15.5 g/dL 09/24/2024 5:[address] [facility] Hematocrit 30.6(L) 35.7 - 45.8 % 09/24/2024 5:[address] [facility] Mean Cell Volume 91.6 82.6 - 94.4 fL 09/24/2024 5:[address] [facility] Mean Cell Hemoglobin 29.0 27.1 - 32.0 pg 09/24/2024 5:[address] [facility] Mean Cell Hemoglobin Concentration 31.7 31.7 - 35.0 g/dL 09/24/2024 5:[address] [facility] Platelet 342 145 - 357 x10(3)/mc L 09/24/2024 5:[address] [facility] Mean Platelet Volume 11.0 7.6 - 12.9 fL 09/24/2024 5:[address] [facility] RDW Standard Deviation 41.1 37.0 - 46.0 fL 09/24/2024 5:[address] [facility] RDW coefficient of variation 12.5 11.5 - 14.1 % 09/24/2024 5:[address] [facility] NRBC% auto 0.1 % 09/24/2024 5:[address] [facility] NRBC Absolute 0.02(H) <0.01 x10(3)/mc L 09/24/2024 5:[address] [facility] Neutrophil % 84.6 % 09/24/2024 5:[address] [facility] Comment:This is an appended report. These results have been appended to a previously preliminary verified report. Neutrophil Absolute (ANC) - Automated 16.30(H) 1.70 - 6.10 x10(3)/mc L 09/24/2024 5:[address] [facility] Comment:This is an appended report. These results have been appended to a previously preliminary verified report. Lymph % 3.0 % 09/24/2024 5:[address] [facility] Comment:This is an appended report. These results have been appended to a previously preliminary verified report. Lymph Absolute 0.57(L) 0.90 - 3.20 x10(3)/mc L 09/24/2024 5:[address] [facility] Comment:This is an appended report. These results have been appended to a previously preliminary verified report. Monocyte % 7.0 % 09/24/2024 5:[address] [facility] Comment:This is an appended report. These results have been appended to a previously preliminary verified report. Monocyte Absolute 1.35(H) 0.30 - 0.90 x10(3)/mc L 09/24/2024 5:[address] [facility] Comment:This is an appended report. These results have been appended to a previously preliminary verified report. Eos % 0.0 % 09/24/2024 5:[address] [facility] Comment:This is an appended report. These results have been appended to a previously preliminary verified report. Eos Absolute <0.04 0.00 - 0.40 x10(3)/mc L 09/24/2024 5:[address] [facility] Comment:This is an appended report. These results have been appended to a previously preliminary verified report. Basophil % 0.2 % 09/24/2024 5:[address] [facility] Comment:This is an appended report. These results have been appended to a previously preliminary verified report. Baso Absolute <0.04 0.00 - 0.10 x10(3)/mc L 09/24/2024 5:47 AM EDT [facility] Comment:This is an appended report. These results have been appended to a previously preliminary verified report. Immature Gran % 5.2 % 5:47 AM EDT [facility] Comment:This is an appended report. These results have been appended to a previously preliminary verified report. Immature Gran Absolute 1.00(H) 0.00 - 0.04 x10(3)/mc L 09/24/2024 5:47 AM EDT [facility] Comment:This is an appended report. These results have been appended to a previously preliminary verified report. Blood VENOUS BLOOD SPECIMEN / Unknown 09/24/2024 5:00 AM EDT 09/24/2024 5:13 AM EDT Librado Patel MD HEMATOLOGY ORDERABLE S [facility] [place] [address] * Phosphorus (09/24/2024 5:00 AM EDT) Phosphorus 3.7 2.5 - 4.5 mg/dL 09/24/2024 5:50 AM EDT [facility] Blood VENOUS BLOOD SPECIMEN / Unknown 09/24/2024 5:00 AM EDT 09/24/2024 5:13 AM EDT Librado Patel MD CHEMISTRY ORDERABLES [facility] [place] [address] * (ABNORMAL) POC, GLUCOSE (09/24/2024 4:05 AM EDT) Glucometer, POC 210(H) 65 - 199 mg/dL 09/24/2024 4:05 AM EDT [facility] Comment:Supplemental ranges: <140 mg/dL before meals <180 mg/dL all other times of the day. Blood CAPILLARY BLOOD / Unknown 09/24/2024 4:05 AM EDT 09/24/2024 4:05 AM EDT Mariola Calixto MD POINT OF CARE TEST ORDERABLES Performing Organization Address City/[facility]/ZIP Co de Phone Number [facility] [place] [address] * POC, GLUCOSE (09/23/2024 11:57 PM EDT) Glucometer, POC 179 65 - 199 mg/dL 09/23/2024 11:57 PM EDT [facility] Comment:Supplemental ranges: <140 mg/dL before meals <180 mg/dL all other times of the day. Blood CAPILLARY BLOOD / Unknown 09/23/2024 11:57 PM EDT 09/23/2024 11:58 PM EDT Mariola Calixto MD POINT OF CARE TEST ORDERABLES Performing Organization Address [facility]/ZIP Co de Phone Number [facility] [place] [address] * POC, GLUCOSE (09/23/2024 7:59 PM EDT) Glucometer, POC 179 65 - 199 mg/dL 09/23/2024 8:00 PM EDT [facility] Comment:Supplemental ranges: <140 mg/dL before meals <180 mg/dL all other times of the day. Blood CAPILLARY BLOOD / Unknown 09/23/2024 7:59 PM EDT 09/23/2024 8:00 PM EDT Mariola Calixto MD POINT OF CARE TEST ORDERABLES [facility] [place] [address] * Potassium (09/23/2024 4:23 PM EDT) Potassium 4.3 3.5 - 5.0 mMol/L 09/23/2024 5:09 PM EDT [facility] Blood VENOUS BLOOD SPECIMEN / Unknown Venipuncture / Unknown 09/23/2024 4:23 PM EDT 09/23/2024 4:39 PM EDT Librado Patel MD CHEMISTRY ORDERABLES [facility] [place] [address] * POC, GLUCOSE (09/23/2024 3:53 PM EDT) Glucometer, POC 167 65 - 199 mg/dL 09/23/2024 3:53 PM EDT [facility] Comment:Supplemental ranges: <140 mg/dL before meals <180 mg/dL all other times of the day. Blood CAPILLARY BLOOD / Unknown 09/23/2024 3:53 PM EDT 09/23/2024 3:53 PM EDT Mariola Calixto MD POINT OF CARE TEST ORDERABLES Performing Organization Address City/[facility]/ZIP Co de Phone Number [facility] [place] [address] * POC, GLUCOSE (09/23/2024 11:30 AM EDT) Glucometer, POC 162 65 - 199 mg/dL 09/23/2024 11:30 AM EDT [facility] Comment:Supplemental ranges: <140 mg/dL before meals <180 mg/dL all other times of the day. Blood CAPILLARY BLOOD / Unknown 09/23/2024 11:30 AM EDT 09/23/2024 11:30 AM EDT Mariola Calixto MD POINT OF CARE TEST ORDERABLES [facility] [place] [address] * (ABNORMAL) Urinalysis Microscopic (09/23/2024 10:29 AM [...] Calixto MD URINE ORDERABLES Performing Organization Address City/[facility]/ZIP Co de Phone Number [facility] [place] [address] * Urinalysis Microscopic Exam (09/23/2024 10:29 AM EDT) Urine Non Blood Collection / Unknown 09/23/2024 10:29 AM EDT 09/23/2024 10:38 AM EDT Mariola Calixto MD URINE ORDERABLES Performing Organization Address City/[facility]/ZIP Co de Phone Number [facility] [place] [address] * (ABNORMAL) Urinalysis Dipstick (09/23/2024 10:29 AM [facility]) Glucose, Urine Dipstick Negative Negative 09/23/2024 11:[address] [facility] Protein, Urine Dipstick Negative Negative 09/23/2024 11:[address] [facility] Bilirubin, Urine Dipstick Negative Negative 09/23/2024 11:[address] [facility] Comment:Clinical correlation required for positive Urine Bilirubin results as false positive may occur with some drugs and drug related products. If a false positive is suspected a serum total bilirubin should be considered if clinically indicated. Urobilinogen, Urine Dipstick Normal Normal, 0.2 mg/dL, 1.0 mg/dL 09/23/2024 11:[address] [facility] pH, Urine (dipstick) 6.5 5.0 - 8.0 09/23/2024 11:[address] [facility] Blood, Urine Dipstick Moderate(A) Negative 09/23/2024 11:[address] [facility] Ketone, Urine Dipstick Negative Negative 09/23/2024 11:[address] [facility] Nitrite, Urine Dipstick Negative Negative 09/23/2024 11:[address] [facility] Leukocytes, Urine Dipstick Small(A) Negative 09/23/2024 11:[address] [facility] Specific [place] Urine Automated 1.019 1.005 - 1.030 09/23/2024 11:[address] [facility] Appearance, Urine Dipstick Cloudy(A) Clear 09/23/2024 11:[address] [facility] Color, Urine Dipstick Yellow Yellow, Dark Yellow 09/23/2024 11:[address] [facility] CULTURE ADDED? 09/23/2024 11:[address] [facility] Urine Non Blood Collection / Unknown 09/23/2024 10:29 AM EDT 09/23/2024 10:38 AM EDT Mariola Calixto MD URINE ORDERABLES Performing Organization Address City/[facility]/ZIP Co de Phone Number [facility] [place] [address] * (ABNORMAL) Respiratory Culture, Quantitative (09/23/2024 10:26 [...] - GEN ERAL ORDERABLES Performing Organization Address City/[facility]/ZIP Co de Phone Number [facility] [place] [address] * (ABNORMAL) Hepatic Function Panel (09/23/2024 7:56 AM EDT) Albumin 3.0(L) 3.2 - 5.2 g/dL 09/23/2024 10:04 AM EDT [facility] Aspartate Aminotransferase 18 <=30 unit/L 09/23/2024 10:04 AM EDT [facility] Alanine Aminotransferase 56(H) 0 - 30 unit/L 09/23/2024 10:04 AM EDT [facility] Alkaline Phosphatase 80 35 - 105 unit/L 09/23/2024 10:04 AM EDT [facility] Bilirubin, Total 0.3 <=1.3 mg/dL 09/23/2024 10:04 AM EDT [facility] Bilirubin, Direct <0.2 0.0 - 0.3 mg/dL 09/23/2024 10:04 AM EDT [facility] Protein, Total 5.8(L) 6.1 - 8.0 g/dL 09/23/2024 10:04 AM EDT [facility] Blood VENOUS BLOOD SPECIMEN / Unknown IP Care Team Draw / Unknown 09/23/2024 7:56 AM EDT 09/23/2024 8:23 AM EDT Mariola Calixto MD CHEMISTRY ORDERABL ES [facility] [place] [address] * Potassium (09/23/2024 7:56 AM EDT) Potassium 3.9 3.5 - 5.0 mMol/L 09/23/2024 9:26 AM EDT [facility] Blood VENOUS BLOOD SPECIMEN / Unknown IP Care Team Draw / Unknown 09/23/2024 7:56 AM EDT 09/23/2024 8:23 AM EDT Librado Patel MD CHEMISTRY ORDERABLES [facility] [place] [address] * POC, GLUCOSE (09/23/2024 7:41 AM EDT) Glucometer, POC 169 65 - 199 mg/dL 09/23/2024 7:42 AM EDT [facility] Comment:Supplemental ranges: <140 mg/dL before meals <180 mg/dL all other times of the day. Blood CAPILLARY BLOOD / Unknown 09/23/2024 7:41 AM EDT 09/23/2024 7:42 AM EDT Mariola Calixto MD POINT OF CARE TEST ORDERABLES Performing Organization Address City/[facility] Co de Phone Number [facility] [place] [address] * POC, GLUCOSE (09/23/2024 7:15 AM EDT) Glucometer, POC 167 65 - 199 mg/dL 09/23/2024 7:15 AM EDT [facility] Comment:Supplemental ranges: <140 mg/dL before meals <180 mg/dL all other times of the day. Blood CAPILLARY BLOOD / Unknown 09/23/2024 7:15 AM EDT 09/23/2024 7:15 AM EDT Mariola Calixto MD POINT OF CARE TEST ORDERABLES Performing Organization Address [facility] de Phone Number [facility] [place] [address] * (ABNORMAL) POC, GLUCOSE (09/23/2024 4:11 AM EDT) Glucometer, POC 209(H) 65 - 199 mg/dL 09/23/2024 4:11 AM EDT [facility] Comment:Supplemental ranges: <140 mg/dL before meals <180 mg/dL all other times of the day. Blood CAPILLARY BLOOD / Unknown 09/23/2024 4:11 AM EDT 09/23/2024 4:11 AM EDT Mariola Calixto MD POINT OF CARE TEST ORDERABLES Performing Organization Address City/[facility] Co de Phone Number [facility] [place] [address] * Phosphorus (09/23/2024 1:01 AM EDT) Pathologist [facility] Phosphorus 3.2 2.5 - 4.5 mg/dL 09/23/2024 1:43 AM EDT [facility] Blood VENOUS BLOOD SPECIMEN / Unknown IP Care Team Draw / Unknown 09/23/2024 1:01 AM EDT 09/23/2024 1:15 AM EDT Librado Patel MD CHEMISTRY ORDERABLES [facility] [place] [address] * Magnesium (09/23/2024 1:01 AM EDT) [facility] Magnesium 0.85 0.69 - 1.07 mMol/L 09/23/2024 1:43 AM EDT [facility] Blood VENOUS BLOOD SPECIMEN / Unknown IP Care Team Draw / Unknown 09/23/2024 1:01 AM EDT 09/23/2024 1:15 AM EDT Librado Patel MD CHEMISTRY ORDERABLES [facility] [place] [address] * (ABNORMAL) Basic Metabolic Panel (09/23/2024 1:01 AM EDT) Pathologist [facility] Glucose 211(H) 65 - 199 mg/dL 09/23/2024 1:43 AM EDT [facility] Comment:Glucose Concentratio n >=200 mg/dL plus symptoms is consistent with Diabetes Mellitus. Blood Urea Nitrogen 26(H) 8 - 18 mg/dL 09/23/2024 1:43 AM EDT [facility] Creatinine 0.47(L) 0.70 - 1.20 mg/dL 09/23/2024 1:43 AM EDT [facility] Sodium 138 135 - 145 mMol/L 09/23/2024 1:43 AM EDT [facility] Potassium 3.9 3.5 - 5.0 mMol/L 09/23/2024 1:43 AM EDT [facility] Chloride 103 98 - 107 mMol/L 09/23/2024 1:43 AM EDT [facility] Carbon Dioxide 25 22 - 31 mMol/L 09/23/2024 1:[address] [facility] Anion Gap 10 5 - 15 mMol/L 09/23/2024 1:43 AM T [facility] Calcium 8.7 8.5 - 10.5 mg/dL 09/23/2024 1:[address] [facility] Est Glomerular Filtration Rate - Female 101 mL/min/1. 73 m?? 09/23/2024 1:[address] [facility] Comment: This patient's estimated GFR [...] Foundation Blood VENOUS BLOOD SPECIMEN / Unknown IP Care Team Draw / Unknown 09/23/2024 1:01 AM EDT 09/23/2024 1:15 AM EDT Librado Patel MD CHEMISTRY ORDERABLES [facility] [place] [address] * (ABNORMAL) CBC (with Diff) (09/23/2024 1:01 AM EDT) White Blood Cell 19.97(H) 4.00 - 9.50 x10(3)/mc L 09/23/2024 1:19 AM EDT [facility] Red Blood Cell 3.37(L) 4.00 - 5.21 x10(6)/mc L 09/23/2024 1:[address] [facility] Hemoglobin 10.0(L) 11.7 - 15.5 g/dL 09/23/2024 1:[address] [facility] Hematocrit 30.1(L) 35.7 - 45.8 % 09/23/2024 1:[address] [facility] Mean Cell Volume 89.3 82.6 - 94.4 fL 09/23/2024 1:[address] [facility] Mean Cell Hemoglobin 29.7 27.1 - 32.0 pg 09/23/2024 1:[address] [facility] Mean Cell Hemoglobin Concentration 33.2 31.7 - 35.0 g/dL 09/23/2024 1:[address] [facility] Platelet 293 145 - 357 x10(3)/mc L 09/23/2024 1:[address] [facility] Mean Platelet Volume 10.9 7.6 - 12.9 fL 09/23/2024 1:[address] [facility] RDW Standard Deviation 39.9 37.0 - 46.0 fL 09/23/2024 1:[address] [facility] RDW coefficient of variation 12.4 11.5 - 14.1 % 09/23/2024 1:[address] [facility] NRBC% auto 0.1 % 09/23/2024 1:[address] [facility] NRBC Absolute 0.02(H) <0.01 x10(3)/mc L 09/23/2024 1:[address] [facility] Neutrophil % 84.1 % 09/23/2024 1:[address] [facility] Neutrophil Absolute (ANC) - Automated 16.80(H) 1.70 - 6.10 x10(3)/mc L 09/23/2024 1:[address] [facility] Lymph % 3.4 % 09/23/2024 1:19 AM EDT [facility] Lymph Absolute 0.67(L) 0.90 - 3.20 x10(3)/mc L 09/23/2024 1:19 AM EDT [facility] Monocyte % 8.6 % 09/23/2024 1:19 AM EDT [facility] Monocyte Absolute 1.72(H) 0.30 - 0.90 x10(3)/mc L 09/23/2024 1:19 AM EDT [facility] Eos % 0.0 % 09/23/2024 1:19 AM EDT [facility] Eos Absolute <0.04 0.00 - 0.40 x10(3)/mc L 09/23/2024 1:19 AM EDT [facility] Basophil % 0.2 % 09/23/2024 1:19 AM EDT [facility] Baso Absolute 0.04 0.00 - 0.10 x10(3)/mc L 09/23/2024 1:19 AM EDT [facility] Immature Gran % 3.7 % 1:19 AM EDT [facility] Immature Gran Absolute 0.74(H) 0.00 - 0.04 x10(3)/mc L 09/23/2024 1:19 AM EDT [facility] Blood VENOUS BLOOD SPECIMEN / Unknown IP Care Team Draw / Unknown 09/23/2024 1:01 AM EDT 09/23/2024 1:15 AM EDT Librado Patel MD HEMATOLOGY ORDERABLE S [facility] [place] [address] * (ABNORMAL) POC, GLUCOSE (09/23/2024 12:47 AM EDT) [facility] Signature Glucometer, POC 200(H) 65 - 199 mg/dL 09/23/2024 12:47 AM EDT [facility] Comment:Supplemental ranges: <140 mg/dL before meals <180 mg/dL all other times of the day. Blood CAPILLARY BLOOD / Unknown 09/23/2024 12:47 AM EDT 09/23/2024 12:47 AM EDT Mariola Calixto MD POINT OF CARE TEST ORDERABLES [facility] [place] [address] * POC, GLUCOSE (09/22/2024 11:40 PM EDT) Glucometer, POC 181 65 - 199 mg/dL 09/22/2024 11:40 PM EDT [facility] Comment:Supplemental ranges: <140 mg/dL before meals <180 mg/dL all other times of the day. Blood CAPILLARY BLOOD / Unknown 09/22/2024 11:40 PM EDT 09/22/2024 11:40 PM EDT Mariola Calixto MD POINT OF CARE TEST ORDERABLES Performing Organization Address City/[facility]/ZIP Co de Phone Number [facility] [place] [address] * POC, GLUCOSE (09/22/2024 9:02 PM EDT) Glucometer, POC 159 65 - 199 mg/dL 09/22/2024 9:02 PM EDT [facility] Comment:Supplemental ranges: <140 mg/dL before meals <180 mg/dL all other times of the day. Blood CAPILLARY BLOOD / Unknown 09/22/2024 9:02 PM EDT 09/22/2024 9:02 PM EDT Mariola Calixto MD POINT OF CARE TEST ORDERABLES [facility] [place] [address] * POC, GLUCOSE (09/22/2024 7:38 PM EDT) Glucometer, POC 162 65 - 199 mg/dL 09/22/2024 7:38 PM EDT [facility] Comment:Supplemental ranges: <140 mg/dL before meals <180 mg/dL all other times of the day. Blood CAPILLARY BLOOD / Unknown 09/22/2024 7:38 PM EDT 09/22/2024 7:38 PM EDT Mariola Calixto MD POINT OF CARE TEST ORDERABLES Performing Organization Address [facility]/ZIP Co de Phone Number [facility] [place] [place] [address] * POC, GLUCOSE (09/22/2024 3:52 PM EDT) Glucometer, POC 189 65 - 199 mg/dL 09/22/2024 3:52 PM EDT [facility] Comment:Supplemental ranges: <140 mg/dL before meals <180 mg/dL all other times of the day. Blood CAPILLARY BLOOD / Unknown 09/22/2024 3:52 PM EDT 09/22/2024 3:52 PM EDT Mariola Calixto MD POINT OF CARE TEST ORDERABLES Performing Organization Address [facility] Co de Phone Number [facility] [place] [address] * POC, GLUCOSE (09/22/2024 11:56 AM EDT) Glucometer, POC 181 65 - 199 mg/dL 09/22/2024 11:56 AM EDT [facility] Comment:Supplemental ranges: <140 mg/dL before meals <180 mg/dL all other times of the day. Blood CAPILLARY BLOOD / Unknown 09/22/2024 11:56 AM EDT 09/22/2024 11:57 AM EDT Mariola Calixto MD POINT OF CARE TEST ORDERABLES Performing Organization Address City/[facility]/ZIP Co de Phone Number [facility] [place] [address] * MRSA PCR Screen (09/22/2024 11:43 AM EDT) [facility] MRSA PCR Not Detected 09/22/2024 2:13 PM EDT [facility] Swab SPECIMEN FROM NASOPHARYNGEAL STRUCTURE / Unknown Non Blood Collection / Unknown 09/22/2024 11:43 AM EDT 09/22/2024 11:52 AM EDT Narrative [facility] - 09/22/2024 2:13 PM EDT This test was performed using the Xpert MRSA NxG test kit and is run on the [employer] Dx System. This test is cleared by the U.S. Food and Drug Administration for clinical use and its performance characteristics have been verified by the Clinical [employer] and [employer] [facility] at [facility]. This test was performed using the Xpert MRSA NxG test kit and is run on the [employer] Dx System. This test is cleared by the U.S. Food and Drug Administration for clinical use and its performance characteristics have been verified by the Clinical [employer] and [employer] [facility] at [facility]. Mariola Calixto MD MOLECULAR ORDERABL ES Performing Organization Address [facility] Co de Phone Number [facility] [place] [address] * POC, GLUCOSE (09/22/2024 7:52 AM EDT) [facility] Glucometer, POC 178 65 - 199 mg/dL 09/22/2024 7:52 AM EDT [facility] Comment:Supplemental ranges: <140 mg/dL before meals <180 mg/dL all other times of the day. Blood CAPILLARY BLOOD / Unknown 09/22/2024 7:52 AM EDT 09/22/2024 7:52 AM EDT Mariola Calixto MD POINT OF CARE TEST ORDERABLES [facility] [place] [address] * (ABNORMAL) POC, GLUCOSE (09/22/2024 4:53 AM EDT) Pathologist [facility] Glucometer, POC 204(H) 65 - 199 mg/dL 09/22/2024 4:54 AM EDT [facility] Comment:Supplemental ranges: <140 mg/dL before meals <180 mg/dL all other times of the day. Blood CAPILLARY BLOOD / Unknown 09/22/2024 4:53 AM EDT 09/22/2024 4:54 AM EDT Mariola Calixto MD POINT OF CARE TEST ORDERABLES [facility] [place] [address] * CT Head wo Contrast (Generic) (09/22/2024 4:02 AM EDT) [facility] WORKSTATION ID [id number] [facility] Anatomical Region Laterality Modality Head Computed Tomogra phy Impressions 09/22/2024 4:31 AM EDT Stable head CT status post removal of subcutaneous drain. No new or enlarging hemorrhage. Stable pattern of mass effect Thank you for letting us participate in the care of this patient. ??If you are a health care provider and have any questions regarding this report, please contact the number below. ??For patients who have questions please contact the health ocular care technician that requested your imaging first. ? Narrative 09/22/2024 4:31 AM EDT EXAMINATION: CT HEAD WO CONTRAST (GENERIC) CLINICAL HISTORY: s/p drain removal TECHNIQUE: CT head performed without intravenous contrast administration. COMPARISON: 09/21/2024 FINDINGS: Similar appearance of right-sided craniotomy. There is been interval removal of the drain projecting in the subcutaneous soft tissues overlying the craniotomy. There is residual soft tissue swelling and a small amount of air in the subcutaneous soft tissues overlying the craniotomy. There is stable appearance of extra-axial hemorrhage underlying the craniotomy with with interval decrease in small amount of pneumocephalus. No new or enlarging extra-axial collection. There is similar pattern and extent of parenchymal hemorrhage in the right temporal and parietal lobe with surrounding vasogenic edema. There is stable appearance of hemorrhage in the right posterior limb internal capsule and right thalamus associated edema. There is stable appearance of intraventricular hemorrhage layering in the occipital horns lateral ventricles. The third and lateral ventricles are unchanged in size. There is stable appearance of subfalcine herniation from right to left and stable mild effacement of the lateral margin of the right suprasellar cistern with mild uncal shift. Mild asymmetric enlargement of the infratentorial CSF space on the right. Stable effacement of sulci in the right hemisphere. . Procedure Note Armando Pan MD - 09/22/2024 EXAMINATION: CT HEAD WO CONTRAST (GENERIC) CLINICAL HISTORY: s/p drain removal TECHNIQUE: CT head performed without intravenous contrast administration. COMPARISON: 09/21/2024 FINDINGS: Similar appearance of right-sided craniotomy. There is been intervalremoval of the drain projecting in the subcutaneous soft tissues overlying thecraniotomy. There is residual soft tissue swelling and a small amount of air in the subcutaneous soft tissues overlying the craniotomy. There is stable appearance of extra-axial hemorrhage underlying thecraniotomy with with interval decrease in small amount of pneumocephalus. No new or enlarging extra-axial collection. There is similar pattern and extent of parenchymal hemorrhage in theright temporal and parietal lobe with surrounding vasogenic edema. There isstable appearance of hemorrhage in the right posterior limb internal capsule andright thalamus associated edema. There is stable appearance of intraventricular hemorrhage layering inthe occipital horns lateral ventricles. The third and lateral ventricles are unchanged in size. There is stable appearance of subfalcine herniation from right to leftand stable mild effacement of the lateral margin of the right suprasellarcistern with mild uncal shift. Mild asymmetric enlargement of the infratentorialCSF space on the right. Stable effacement of sulci in the right hemisphere. . IMPRESSION Stable head CT status post removal of subcutaneous drain. No new or enlarging hemorrhage. Stable pattern of mass effect Thank you for letting us participate in the care of this patient. If youare a health care provider and have any questions regarding this report,please contact the number below. For patients who have questions please contactthe health ocular care technician that requested your imaging first. Electronically signed by: Armando Pan MD, [facility]([phone]), at 09/22/2024 4:31 AM Mariola Calixto MD IMG CT ORDERABLES * Phosphorus (09/22/2024 1:26 AM EDT) Phosphorus 3.7 2.5 - 4.5 mg/dL 09/22/2024 1:59 AM EDT [facility] Blood VENOUS BLOOD SPECIMEN / Unknown IP Care Team Draw / Unknown 09/22/2024 1:26 AM EDT 09/22/2024 1:31 AM EDT Librado Patel MD CHEMISTRY ORDERABLES [facility] [place] [address] * Magnesium (09/22/2024 1:26 AM EDT) Magnesium 0.87 0.69 - 1.07 mMol/L 09/22/2024 1:59 AM EDT [facility] Blood VENOUS BLOOD SPECIMEN / Unknown IP Care Team Draw / Unknown 09/22/2024 1:26 AM EDT 09/22/2024 1:31 AM EDT Librado Patel MD CHEMISTRY ORDERABLES [facility] [place] [address] * (ABNORMAL) Basic Metabolic Panel (09/22/2024 1:26 AM EDT) Glucose 228(H) 65 - 199 mg/dL 09/22/2024 1:59 AM EDT [facility] Comment:Glucose Concentratio n >=200 mg/dL plus symptoms is consistent with Diabetes Mellitus. Blood Urea Nitrogen 26(H) 8 - 18 mg/dL 09/22/2024 1:59 AM EDT [facility] Creatinine 0.53(L) 0.70 - 1.20 mg/dL 09/22/2024 1:59 AM EDT [facility] LABORATORY Sodium 139 135 - 145 mMol/L [facility]/22[facility]2024 [facility] Potassium 4.0 3.5 - 5.0 mMol/L 09/22/2024 1:59 AM EDT [facility] Chloride 104 98 - 107 mMol/L 09/22/2024 1:[address] [facility] Carbon Dioxide 23 22 - 31 mMol/L 09/22/2024 1:[address] [facility] Anion Gap 12 5 - 15 mMol/L 09/22/2024 1:[facility] Calcium 8.8 8.5 - 10.5 mg/dL 09/22/2024 1:[facility] Est Glomerular Filtration Rate - Female 98 mL/min/1. 73 m?? 09/22/2024 1:[address] [facility] Comment: This patient's estimated GFR [...] Foundation Blood VENOUS BLOOD SPECIMEN / Unknown IP Care Team Draw / Unknown 09/22/2024 1:26 AM EDT 09/22/2024 1:31 AM EDT Librado Patel MD CHEMISTRY ORDERABLES [facility] [place] [address] * (ABNORMAL) CBC (with Diff) (09/22/2024 1:26 AM EDT) White Blood Cell 16.65(H) 4.00 - 9.50 x10(3)/mc L 09/22/2024 1:35 AM EDT [facility] Red Blood Cell 3.30(L) 4.00 - 5.21 x10(6)/mc L 09/22/2024 1:35 AM EDT [facility] Hemoglobin 9.9(L) 11.7 - 15.5 g/dL 09/22/2024 1:35 AM EDT [facility] Hematocrit 29.4(L) 35.7 - 45.8 % 09/22/2024 1:35 AM EDT [facility] Mean Cell Volume 89.1 82.6 - 94.4 fL 09/22/2024 1:35 AM EDT [facility] Mean Cell Hemoglobin 30.0 27.1 - 32.0 pg 09/22/2024 1:35 AM EDT [facility] Mean Cell Hemoglobin Concentration 33.7 31.7 - 35.0 g/dL 09/22/2024 1:[facility] Platelet 274 145 - 357 x10(3)/mc L 09/22/2024 1:35 AM EDT [facility] Mean Platelet Volume 11.1 7.6 - 12.9 fL 09/22/2024 [facility] RDW Standard Deviation 39.8 37.0 - 46.0 fL 09/22/2024 1:[address] [facility] RDW coefficient of variation 12.3 11.5 - 14.1 % 09/22/2024 1:[address] [facility] NRBC% auto 0.0 % 09/22/2024 1:[address] [facility] NRBC Absolute <0.01 <0.01 x10(3)/mc L 09/22/2024 1:[address] [facility] Neutrophil % 89.9 % 09/22/2024 1:[address] [facility] Neutrophil Absolute (ANC) - Automated 14.97(H) 1.70 - 6.10 x10(3)/mc L 09/22/2024 1:[address] [facility] Lymph % 3.0 % 09/22/2024 1:[address] [facility] Lymph Absolute 0.50(L) 0.90 - 3.20 x10(3)/mc L 09/22/2024 1:[address] [facility] Monocyte % 5.6 % 09/22/2024 1:[address] [facility] Monocyte Absolute 0.93(H) 0.30 - 0.90 x10(3)/mc L 09/22/2024 1:[address] [facility] Eos % 0.0 % 09/22/2024 1:[address] [facility] Eos Absolute <0.04 0.00 - 0.40 x10(3)/mc L 09/22/2024 1:[address] [facility] Basophil % 0.1 % 09/22/2024 1:[address] [facility] Baso Absolute <0.04 0.00 - 0.10 x10(3)/mc L 09/22/2024 1:[address] [facility] Immature Gran % 1.4 % 1:35 AM EDT [facility] Immature Gran Absolute 0.23(H) 0.00 - 0.04 x10(3)/mc L 09/22/2024 1:35 AM EDT [facility] Blood VENOUS BLOOD SPECIMEN / Unknown IP Care Team Draw / Unknown 09/22/2024 1:26 AM EDT 09/22/2024 1:31 AM EDT Librado Patel MD HEMATOLOGY ORDERABLE S [facility] [place] [address] * POC, GLUCOSE (09/21/2024 11:37 PM EDT) Glucometer, POC 191 65 - 199 mg/dL 09/21/2024 11:38 PM EDT [facility] Comment:Supplemental ranges: <140 mg/dL before meals <180 mg/dL all other times of the day. Blood CAPILLARY BLOOD / Unknown 09/21/2024 11:37 PM EDT 09/21/2024 11:38 PM EDT Mariola Calixto MD POINT OF CARE TEST ORDERABLES Performing Organization Address City/[facility]/ZIP Co de Phone Number [facility] [place] [address] * POC, GLUCOSE (09/21/2024 7:52 PM EDT) Glucometer, POC 175 65 - 199 mg/dL 09/21/2024 7:52 PM EDT [facility] Comment:Supplemental ranges: <140 mg/dL before meals <180 mg/dL all other times of the day. Blood CAPILLARY BLOOD / Unknown 09/21/2024 7:52 PM EDT 09/21/2024 7:53 PM EDT Mariola Calixto MD POINT OF CARE TEST ORDERABLES [facility] [place] [address] * POC, GLUCOSE (09/21/2024 4:03 PM EDT) Glucometer, POC 165 65 - 199 mg/dL 09/21/2024 4:03 PM EDT [facility] Comment:Supplemental ranges: <140 mg/dL before meals <180 mg/dL all other times of the day. Blood CAPILLARY BLOOD / Unknown 09/21/2024 4:03 PM EDT 09/21/2024 4:03 PM EDT Mariola Calixto MD POINT OF CARE TEST ORDERABLES [facility] [place] [address] * XR Chest One View (09/21/2024 2:01 PM EDT) [facility] WORKSTATION ID [id number] RAD Anatomical Region Laterality Modality Chest N/A Digital Radiogra phy Impressions 09/21/2024 5:09 PM EDT ET tube with tip projecting approximately 1.4 cm above the jonathan. Recommend retracting approximately 2 cm and follow-up imaging. New left basilar atelectasis and/or small pleural effusion. Aspiration or pneumonia could also this appearance. I Sacha Shipley MD discussed the results (Impression #1) with Bonnie Vazquez on 09/21/2024 4:42 PM and verified that the results were understood. I have personally reviewed the image(s) and the resident's interpretation and agree with the findings, Octavio Scott MD at 09/21/2024 5:09 PM Thank you for letting us participate in the care of this patient. ??If you are a health care provider and have any questions regarding this report, please contact the number below. ??For patients who have questions please contact the health ocular care technician that requested your imaging first. ? Electronically signed by: Octavio Scott MD, [facility] ??([phone]), at 09/21/2024 5:09 PM Narrative 09/21/2024 5:09 PM EDT EXAMINATION: XR CHEST ONE VIEW CLINICAL HISTORY: ETT placement TECHNIQUE: 1 view of the chest AP portable. COMPARISON: None FINDINGS: Lines and tubes: ET tube with tip projecting approximately 1.4 cm above the jonathan. Enteric tube with side-port projecting over the stomach. Right subclavian central venous catheter with tip projecting near superior cavoatrial junction. New left basilar opacity silhouetting the diaphragm. No pneumothorax Dextroscoliosis and degenerative changes of the thoracic spine. Procedure Note Octavio Scott MD - 09/21/2024 EXAMINATION: XR CHEST ONE VIEW CLINICAL HISTORY: ETT placement TECHNIQUE: 1 view of the chest AP portable. COMPARISON: None FINDINGS: Lines and tubes: ET tube with tip projecting approximately 1.4 cm abovethe jonathan. Enteric tube with side-port projecting over the stomach. Right subclavian central venous catheter with tip projecting near superiorcavoatrial junction. New left basilar opacity silhouetting the diaphragm. No pneumothorax Dextroscoliosis and degenerative changes of the thoracic spine. IMPRESSION ET tube with tip projecting approximately 1.4 cm above the jonathan.Recommend retracting approximately 2 cm and follow-up imaging. New left basilar atelectasis and/or small pleural effusion. Aspirationor pneumonia could also this appearance. I Sacha Shipley MD discussed the results (Impression #1) with Sheila on 09/21/2024 4:42 PM and verified that the results were understood. I have personally reviewed the image(s) and the resident's interpretationand agree with the findings, Octavio Scott MD at 09/21/2024 5:09 PM Thank you for letting us participate in the care of this patient. If youare a health care provider and have any questions regarding this report,please contact the number below. For patients who have questions please contactthe health ocular care technician that requested your imaging first. Electronically signed by: Octavio Scott MD, [facility]([phone]), at 09/21/2024 5:09 PM Mariola Calixto MD IMG DX ORDERABLES * XR Abdomen 1 view (Generic) (09/21/2024 2:01 PM EDT) WORKSTATION ID [id number] RAD Anatomical Region Laterality Modality Abdomen N/A [...] who have questions please contact the health ocular care technician that requested your imaging first. ? Electronically signed by: Shraddha Cox MD, [facility] ([phone]), at 09/21/2024 3:40 PM Narrative 09/21/2024 3:40 PM EDT EXAMINATION: XR ABDOMEN 1 VIEW (GENERIC) CLINICAL HISTORY: Verify tube placement (as entered by ordering provider in the order requisition) TECHNIQUE: Portable supine AP view of the left abdomen. ??The upper abdomen, lower abdomen, pelvis, and right lateral margin of the abdomen are excluded from the imaged [id number]. COMPARISON: 09/18/2024 FINDINGS: The lower chest and [...] of the abdomen are excluded from theimaged [id number]. COMPARISON: 09/18/2024 FINDINGS: The lower chest and [...] patients who have questions please contactthe health ocular care technician that requested your imaging first. Electronically signed by: Shraddha Cox MD, [facility]([phone]), at 09/21/2024 3:40 PM Mariola Calixto MD IMG DX ORDERABLES * INTUBATION (09/21/2024 12:55 PM EDT) Narrative [...] intubation status comments: First attempt by this pattern chart writer. Encountered lots of oral secretions with [...] Calixto MD PROCEDURE/[facility] ORDERABLES * POC, GLUCOSE (09/21/2024 11:13 AM EDT) Glucometer, POC 162 65 - 199 mg/dL 09/21/2024 11:13 AM EDT [facility] Comment:Supplemental ranges: <140 mg/dL before meals <180 mg/dL all other times of the day. Blood CAPILLARY BLOOD / Unknown 09/21/2024 11:13 AM EDT 09/21/2024 11:13 AM EDT Mariola Calixto MD POINT OF CARE TEST ORDERABLES [facility] [place] [address] * POC, GLUCOSE (09/21/2024 7:46 AM EDT) Glucometer, POC 167 65 - 199 mg/dL 09/21/2024 7:47 AM EDT [facility] Comment:Supplemental ranges: <140 mg/dL before meals <180 mg/dL all other times of the day. Blood CAPILLARY BLOOD / Unknown 09/21/2024 7:46 AM EDT 09/21/2024 7:47 AM EDT Mariola Calixto MD POINT OF CARE TEST ORDERABLES Performing Organization Address City/[facility]/ZIP Co de Phone Number [facility] [place] [address] * POC, GLUCOSE (09/21/2024 7:26 AM EDT) Glucometer, POC 166 65 - 199 mg/dL 09/21/2024 7:27 AM EDT [facility] Comment:Supplemental ranges: <140 mg/dL before meals <180 mg/dL all other times of the day. Blood CAPILLARY BLOOD / Unknown 09/21/2024 7:26 AM EDT 09/21/2024 7:27 AM EDT Mariola Calixto MD POINT OF CARE TEST ORDERABLES [facility] [place] [address] * POC, GLUCOSE (09/21/2024 4:53 AM EDT) Glucometer, POC 176 65 - 199 mg/dL 09/21/2024 4:54 AM EDT [facility] Comment:Supplemental ranges: <140 mg/dL before meals <180 mg/dL all other times of the day. Blood CAPILLARY BLOOD / Unknown 09/21/2024 4:53 AM EDT 09/21/2024 4:54 AM EDT Mariola Calixto MD POINT OF CARE TEST ORDERABLES [facility] [place] [address] * CT Head wo Contrast (Generic) (09/21/2024 3:50 AM EDT) [facility] WORKSTATION ID [id number] [facility] Anatomical Region Laterality Modality Head Computed Tomogra phy Impressions 09/21/2024 4:55 AM EDT Stable hemorrhage right temporal, parietal, right posterior limb internal capsule and right thalamus. Mild progression of vasogenic edema adjacent to hemorrhage. Similar pattern and extent of local and generalized mass effect with stable subfalcine herniation and uncal herniation. Thank you for letting us participate in the care of this patient. ??If you are a health care provider and have any questions regarding this report, please contact the number below. ??For patients who have questions please contact the health ocular care technician that requested your imaging first. ? Narrative 09/21/2024 4:55 AM EDT EXAMINATION: CT HEAD WO CONTRAST (GENERIC) CLINICAL HISTORY: f/u R IPH per NSGY TECHNIQUE: CT head performed without intravenous contrast administration. COMPARISON: 09/17/[address] 09/19/2024 brain MRI FINDINGS: Similar appearance of right-sided craniotomy. There is soft tissue swelling overlying the craniotomy and extracalvarial soft tissues. There is a drain projecting in the extracalvarial soft tissues overlying the craniotomy, unchanged in position. Stable pattern and extent of right temporal and parietal parenchymal hemorrhage. There is stable pattern of parenchymal hemorrhage in the right posterior limb internal capsule and right thalamus. There is mild progression of low attenuation adjacent to the areas of hemorrhage with similar to increased mass effect of the right hemisphere. This is characterized by complete effacement of sulci in the right hemisphere superiorly, subfalcine shift which measures in the 7 mm range, similar to prior exam. There is mild uncal shift with effacement of the right suprasellar cistern similar to prior exam and similar pattern of ipsilateral enlargement of the right infratentorial CSF space. No new or enlarging hemorrhage. Procedure Note Armando Pan MD - 09/21/2024 EXAMINATION: CT HEAD WO CONTRAST (GENERIC) CLINICAL HISTORY: f/u R IPH per NSGY TECHNIQUE: CT head performed without intravenous contrast administration. COMPARISON: 09/17/[address] 09/19/2024 brain MRI FINDINGS: Similar appearance of right-sided craniotomy. There is soft tissueswelling overlying the craniotomy and extracalvarial soft tissues. There is tri projecting in the extracalvarial soft tissues overlying the craniotomy, unchanged in position. Stable pattern and extent of right temporal and parietal parenchymalhemorrhage. There is stable pattern of parenchymal hemorrhage in the right posteriorlimb internal capsule and right thalamus. There is mild progression of low attenuation adjacent to the areas of hemorrhage with similar to increasedmass effect of the right hemisphere. This is characterized by completeeffacement of sulci in the right hemisphere superiorly, subfalcine shift which measuresin the 7 mm range, similar to prior exam. There is mild uncal shift witheffacement of the right suprasellar cistern similar to prior exam and similar patternof ipsilateral enlargement of the right infratentorial CSF space. No new or enlarging hemorrhage. IMPRESSION Stable hemorrhage right temporal, parietal, right posterior limbinternal capsule and right thalamus. Mild progression of vasogenic edema adjacent to hemorrhage. Similar pattern and extent of local and generalized mass effect withstable subfalcine herniation and uncal herniation. Thank you for letting us participate in the care of this patient. If youare a health care provider and have any questions regarding this report,please contact the number below. For patients who have questions please contactthe health ocular care technician that requested your imaging first. Mariola Calixto MD IMG CT ORDERABLES * Phosphorus (09/21/2024 12:21 AM EDT) Pathologist [facility] Phosphorus 3.2 2.5 - 4.5 mg/dL 09/21/2024 1:06 AM EDT [facility] Blood VENOUS BLOOD SPECIMEN / Unknown IP Care Team Draw / Unknown 09/21/2024 12:21 AM EDT 09/21/2024 12:37 AM EDT Librado Patel MD CHEMISTRY ORDERABLES [facility] [place] [address] * Magnesium (09/21/2024 12:21 AM EDT) Magnesium 0.91 0.69 - 1.07 mMol/L 09/21/2024 1:06 AM EDT [facility] Blood VENOUS BLOOD SPECIMEN / Unknown IP Care Team Draw / Unknown 09/21/2024 12:21 AM EDT 09/21/2024 12:37 AM EDT Librado Patel MD CHEMISTRY ORDERABLES [facility] [place] [address] * (ABNORMAL) Basic Metabolic Panel (09/21/2024 12:21 AM EDT) Glucose 185 65 - 199 mg/dL 09/21/2024 1:[address] [facility] Comment:Glucose Concentratio n >=200 mg/dL plus symptoms is consistent with Diabetes Mellitus. Blood Urea Nitrogen 30(H) 8 - 18 mg/dL 09/21/2024 1:[address] [facility] Creatinine 0.54(L) 0.70 - 1.20 mg/dL 09/21/2024 1:[address] [facility] Sodium 141 135 - 145 mMol/L 09/21/2024 1:[address] [facility] Potassium 4.2 3.5 - 5.0 mMol/L 09/21/2024 1:[address] [facility] Chloride 107 98 - 107 mMol/L 09/21/2024 1:[address] [facility] Carbon Dioxide 23 22 - 31 mMol/L 09/21/2024 1:[address] [facility] Anion Gap 11 5 - 15 mMol/L 09/21/2024 1:[address] [facility] Calcium 8.6 8.5 - 10.5 mg/dL 09/21/2024 1:[address] [facility] Est Glomerular Filtration Rate - Female 98 mL/min/1. 73 m?? 09/21/2024 1:[address] [facility] Comment: This patient's estimated GFR [...] Foundation Blood VENOUS BLOOD SPECIMEN / Unknown IP Care Team Draw / Unknown 09/21/2024 12:21 AM EDT 09/21/2024 12:37 AM EDT Librado Patel MD CHEMISTRY ORDERABLES [facility] [place] [address] * (ABNORMAL) CBC (with Diff) (09/21/2024 12:21 AM EDT) White Blood Cell 14.84(H) 4.00 - 9.50 x10(3)/mc L 09/21/2024 12:42 AM EDT [facility] Red Blood Cell 3.02(L) 4.00 - 5.21 x10(6)/mc L 09/21/2024 12:42 AM EDT [facility] Hemoglobin 8.9(L) 11.7 - 15.5 g/dL 09/21/2024 12:42 AM EDT [facility] Hematocrit 27.2(L) 35.7 - 45.8 % 09/21/2024 12:42 AM EDT [facility] Mean Cell Volume 90.1 82.6 - 94.4 fL 09/21/2024 12:42 AM EDT [facility] Mean Cell Hemoglobin 29.5 27.1 - 32.0 pg 09/21/2024 12:42 AM EDT [facility] Mean Cell Hemoglobin Concentration 32.7 31.7 - 35.0 g/dL 09/21/2024 12:42 AM EDT [facility] Platelet 217 145 - 357 x10(3)/mc L 09/21/2024 12:42 AM EDT [facility] Mean Platelet Volume 11.1 7.6 - 12.9 fL 09/21/2024 12:42 AM EDT [facility] RDW Standard Deviation 39.2 37.0 - 46.0 fL 09/21/2024 12:42 AM EDT [facility] RDW coefficient of variation 12.2 11.5 - 14.1 % 09/21/2024 12:[address] [facility] NRBC% auto 0.0 % 09/21/2024 12:[address] [facility] NRBC Absolute <0.01 <0.01 x10(3)/mc L 09/21/2024 12:[address] [facility] Neutrophil % 86.5 % 09/21/2024 12:[address] [facility] Neutrophil Absolute (ANC) - Automated 12.84(H) 1.70 - 6.10 x10(3)/mc L 09/21/2024 12:[address] [facility] Lymph % 5.9 % 09/21/2024 12:[address] [facility] Lymph Absolute 0.87(L) 0.90 - 3.20 x10(3)/mc L 09/21/2024 12:[address] [facility] Monocyte % 6.6 % 09/21/2024 12:[address] [facility] Monocyte Absolute 0.98(H) 0.30 - 0.90 x10(3)/mc L 09/21/2024 12:[address] [facility] Eos % 0.0 % 09/21/2024 12:[address] [facility] Eos Absolute <0.04 0.00 - 0.40 x10(3)/mc L 09/21/2024 12:[address] [facility] Basophil % 0.1 % 09/21/2024 12:[address] [facility] Baso Absolute <0.04 0.00 - 0.10 x10(3)/mc L 09/21/2024 12:[address] [facility] Immature Gran % 0.9 % 12:[address] [facility] Immature Gran Absolute 0.14(H) 0.00 - 0.04 x10(3)/mc L 09/21/2024 12:42 AM EDT [facility] Blood VENOUS BLOOD SPECIMEN / Unknown IP Care Team Draw / Unknown 09/21/2024 12:21 AM EDT 09/21/2024 12:37 AM EDT Librado Patel MD HEMATOLOGY ORDERABLE S [facility] [place] [address] * POC, GLUCOSE (09/21/2024 12:20 AM EDT) Glucometer, POC 190 65 - 199 mg/dL 09/21/2024 12:21 AM EDT [facility] Comment:Supplemental ranges: <140 mg/dL before meals <180 mg/dL all other times of the day. Blood CAPILLARY BLOOD / Unknown 09/21/2024 12:20 AM EDT 09/21/2024 12:21 AM EDT Mariola Calixto MD POINT OF CARE TEST ORDERABLES [facility] [place] [address] * POC, GLUCOSE (09/20/2024 9:46 PM EDT) Glucometer, POC 195 65 - 199 mg/dL 09/20/2024 9:47 PM EDT [facility] Comment:Supplemental ranges: <140 mg/dL before meals <180 mg/dL all other times of the day. Blood CAPILLARY BLOOD / Unknown 09/20/2024 9:46 PM EDT 09/20/2024 9:47 PM EDT Mariola Calixto MD POINT OF CARE TEST ORDERABLES [facility] [place] [address] * POC, GLUCOSE (09/20/2024 3:57 PM EDT) Glucometer, POC 196 65 - 199 mg/dL 09/20/2024 3:57 PM EDT [facility] Comment:Supplemental ranges: <140 mg/dL before meals <180 mg/dL all other times of the day. Blood CAPILLARY BLOOD / Unknown 09/20/2024 3:57 PM EDT 09/20/2024 3:58 PM EDT Mariola Calixto MD POINT OF CARE TEST ORDERABLES Performing Organization Address [facility]/ZIP Co de Phone Number [facility] [place] [address] * POC, GLUCOSE (09/20/2024 11:55 AM EDT) [facility] Glucometer, POC 183 65 - 199 mg/dL 09/20/2024 11:56 AM EDT [facility] Comment:Supplemental ranges: <140 mg/dL before meals <180 mg/dL all other times of the day. Blood CAPILLARY BLOOD / Unknown 09/20/2024 11:55 AM EDT 09/20/2024 11:56 AM EDT Mariola Calixto MD POINT OF CARE TEST ORDERABLES Performing Organization Address [facility]/ZIP Co de Phone Number [facility] [place] [address] * Duplex Study for DVT, Bilat legs (09/20/2024 11:29 AM EDT) [facility] VB Text Report Department: Vascular Surgery Lab Patient: [id number] (LUCERO BRUNO) CPT: 99800 Referring Physician: LIZA LOVE ?? Phone: Indications: [...] AM EDT Liza Love APRN VASCULAR ORDERABLES Performing Organization Address City/[facility]/ZIP Co de Phone Number [id number] * POC, GLUCOSE (09/20/2024 9:50 AM EDT) Glucometer, POC 189 65 - 199 mg/dL 09/20/2024 9:50 AM EDT [facility] Comment:Supplemental ranges: <140 mg/dL before meals <180 mg/dL all other times of the day. Blood CAPILLARY BLOOD / Unknown 09/20/2024 9:50 AM EDT 09/20/2024 9:51 AM EDT Mariola Calixto MD POINT OF CARE TEST ORDERABLES [facility] [place] [address] * POC, GLUCOSE (09/20/2024 7:53 AM EDT) Glucometer, POC 179 65 - 199 mg/dL 09/20/2024 7:53 AM EDT [facility] Comment:Supplemental ranges: <140 mg/dL before meals <180 mg/dL all other times of the day. Blood CAPILLARY BLOOD / Unknown 09/20/2024 7:53 AM EDT 09/20/2024 7:53 AM EDT Mariola Calixto MD POINT OF CARE TEST ORDERABLES Performing Organization Address [facility] Co de Phone Number [facility] [place] [address] * POC, GLUCOSE (09/20/2024 3:53 AM EDT) Glucometer, POC 195 65 - 199 mg/dL 09/20/2024 3:53 AM EDT [facility] Comment:Supplemental ranges: <140 mg/dL before meals <180 mg/dL all other times of the day. Blood CAPILLARY BLOOD / Unknown 09/20/2024 3:53 AM EDT 09/20/2024 3:54 AM EDT Serenity Espinosa MD POINT OF CARE TEST O RDERABLES Performing Organization Address [facility] Co de Phone Number [facility] [place] [address] * POC, GLUCOSE (09/20/2024 12:09 AM EDT) Glucometer, POC 182 65 - 199 mg/dL 09/20/2024 12:09 AM EDT [facility] Comment:Supplemental ranges: <140 mg/dL before meals <180 mg/dL all other times of the day. Blood CAPILLARY BLOOD / Unknown 09/20/2024 12:09 AM EDT 09/20/2024 12:09 AM EDT Serenity Espinosa MD POINT OF CARE TEST O RDERABLES Performing Organization Address City/[facility]/ZIP Co de Phone Number [facility] [place] [address] * Triglyceride (09/20/2024 12:09 AM EDT) Triglyceride 95 mg/dL 09/20/2024 12:51 AM EDT [facility] Comment: Normal: <150 mg/dL Borderline High: 150-199 mg/dL High: 200-499 mg/dL Very High: > or =500 mg/dL Blood VENOUS BLOOD SPECIMEN / Unknown IP Care Team Draw / Unknown 09/20/2024 12:09 AM EDT 09/20/2024 12:14 AM EDT Liza Love APRN CHEMISTRY ORDERABLES Performing Organization Address City/[facility]/ZIP Co de Phone Number [facility] [place] [address] * Phosphorus (09/20/2024 12:09 AM EDT) Phosphorus 2.9 2.5 - 4.5 mg/dL 09/20/2024 12:51 AM EDT [facility] Blood VENOUS BLOOD SPECIMEN / Unknown IP Care Team Draw / Unknown 09/20/2024 12:09 AM EDT 09/20/2024 12:14 AM EDT Librado Patel MD CHEMISTRY ORDERABLES Performing Organization Address City/[facility]/ZIP Co de Phone Number [facility] [place] [address] * Magnesium (09/20/2024 12:09 AM EDT) Magnesium 0.88 0.69 - 1.07 mMol/L 09/20/2024 12:51 AM EDT [facility] Blood VENOUS BLOOD SPECIMEN / Unknown IP Care Team Draw / Unknown 09/20/2024 12:09 AM EDT 09/20/2024 12:14 AM EDT Librado Patel MD CHEMISTRY ORDERABLES Performing Organization Address City/[facility]/ZIP Co de Phone Number [facility] [place] [address] * (ABNORMAL) Basic Metabolic Panel (09/20/2024 12:09 AM EDT) Glucose 187 65 - 199 mg/dL 09/20/2024 12:[address] [facility] Comment:Glucose Concentratio n >=200 mg/dL plus symptoms is consistent with Diabetes Mellitus. Blood Urea Nitrogen 23(H) 8 - 18 mg/dL 09/20/2024 12:[address] [facility] Creatinine 0.52(L) 0.70 - 1.20 mg/dL 09/20/2024 12:[address] [facility] Sodium 139 135 - 145 mMol/L 09/20/2024 12:[address] [facility] Potassium 4.2 3.5 - 5.0 mMol/L 09/20/2024 12:[address] [facility] Chloride 107 98 - 107 mMol/L 09/20/2024 12:[address] [facility] Carbon Dioxide 22 22 - 31 mMol/L 09/20/2024 12:[address] [facility] Anion Gap 10 5 - 15 mMol/L 09/20/2024 12:[address] [facility] Calcium 8.4(L) 8.5 - 10.5 mg/dL 09/20/2024 12:[address] [facility] Est Glomerular Filtration Rate - Female 99 mL/min/1. 73 m?? 09/20/2024 12:[address] [facility] Comment: This patient's estimated GFR [...] Foundation Blood VENOUS BLOOD SPECIMEN / Unknown IP Care Team Draw / Unknown 09/20/2024 12:09 AM EDT 09/20/2024 12:14 AM EDT Librado Patel MD CHEMISTRY ORDERABLES [facility] [place] [address] * (ABNORMAL) CBC (with Diff) (09/20/2024 12:09 AM EDT) White Blood Cell 13.82(H) 4.00 - 9.50 x10(3)/mc L 09/20/2024 12:35 AM EDT [facility] Red Blood Cell 3.01(L) 4.00 - 5.21 x10(6)/mc L 09/20/2024 12:35 AM EDT [facility] Hemoglobin 8.9(L) 11.7 - 15.5 g/dL 09/20/2024 12:35 AM EDT [facility] Hematocrit 26.9(L) 35.7 - 45.8 % 09/20/2024 12:35 AM EDT [facility] Mean Cell Volume 89.4 82.6 - 94.4 fL 09/20/2024 12:35 AM EDT [facility] Mean Cell Hemoglobin 29.6 27.1 - 32.0 pg 09/20/2024 12:35 AM EDT [facility] Mean Cell Hemoglobin Concentration 33.1 31.7 - 35.0 g/dL 09/20/2024 12:35 AM EDT [facility] Platelet 191 145 - 357 x10(3)/mc L 09/20/2024 12:35 AM EDT [facility] Mean Platelet Volume 11.1 7.6 - 12.9 fL 09/20/2024 12:35 AM EDT [facility] RDW Standard Deviation 41.0 37.0 - 46.0 fL 09/20/2024 12:35 AM EDT [facility] RDW coefficient of variation 12.6 11.5 - 14.1 % 09/20/2024 12:35 AM EDT [facility] NRBC% auto 0.0 % 09/20/2024 12:[address] [facility] NRBC Absolute <0.01 <0.01 x10(3)/mc L 09/20/2024 12:[address] [facility] Neutrophil % 90.2 % 09/20/2024 12:[address] [facility] Neutrophil Absolute (ANC) - Automated 12.48(H) 1.70 - 6.10 x10(3)/mc L 09/20/2024 12:[address] [facility] Lymph % 4.7 % 09/20/2024 12:[address] [facility] Lymph Absolute 0.65(L) 0.90 - 3.20 x10(3)/mc L 09/20/2024 12:[address] [facility] Monocyte % 4.3 % 09/20/2024 12:[address] [facility] Monocyte Absolute 0.59 0.30 - 0.90 x10(3)/mc L 09/20/2024 12:[address] [facility] Eos % 0.0 % 09/20/2024 12:[address] [facility] Eos Absolute <0.04 0.00 - 0.40 x10(3)/mc L 09/20/2024 12:[address] [facility] Basophil % 0.1 % 09/20/2024 12:[address] [facility] Baso Absolute <0.04 0.00 - 0.10 x10(3)/mc L 09/20/2024 12:[address] [facility] Immature Gran % 0.7 % 12:[address] [facility] Immature Gran Absolute 0.09(H) 0.00 - 0.04 x10(3)/mc L 09/20/2024 12:[address] [facility] Blood VENOUS BLOOD SPECIMEN / Unknown IP Care Team Draw / Unknown 09/20/2024 12:09 AM EDT 09/20/2024 12:14 AM EDT Librado Patel MD HEMATOLOGY ORDERABLE S Performing Organization Address [facility] Co de Phone Number [facility] [place] [address] * POC, GLUCOSE (09/19/2024 7:36 PM EDT) Glucometer, POC 175 65 - 199 mg/dL 09/19/2024 7:36 PM EDT [facility] Comment:Supplemental ranges: <140 mg/dL before meals <180 mg/dL all other times of the day. 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 Numerous small foci of decreased acute infarction both along and separate from the site of hemorrhage. These foci are present in both cerebral hemispheres and have a pattern most consistent with embolic infarction. No evidence of AUTOMOBILE DESIGN[employer] malignancy Thank you for letting us participate in the care of this patient. ??If you are a health care provider and have any questions regarding this report, please contact the number below. ??For patients who have questions please contact the health ocular care technician that requested your imaging first. ? 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 COMPARISON: CT head of 09/17/2024, MRI of brain of 05/07/2024 FINDINGS: There is no interval change in the size of the large right sided intracerebral hemorrhage within the right frontal, parietal, and temporal lobes as well as the right thalamus. Edema is present about the margins of the hemorrhage a component of this edema, particularly within the right thalamus shows decreased diffusion. Small additional separate foci of decreased diffusion are present in the right paramedian frontal lobe, in the cerebral parenchyma cephalad to the hemorrhage, and in the left frontal lobe. No brainstem infarction is evident. The extent of intraventricular blood is unchanged There is leftward midline shift measuring 8 mm similar to that present on the CT. No overt brainstem deformation is present. Post craniotomy changes are consistent with those evident on the CT. There is a small extra-axial collection along the cerebral convexity. There is mild pachymeningeal enhancement. No bulky or nodular enhancement is present within the area of hematoma. No large vessel occlusion is evident on the flow voids and postcontrast images. The orbits are of normal appearance. 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 COMPARISON: CT head of 09/17/2024, MRI of brain of 05/07/2024 FINDINGS: There is no interval change in the size of the large right sidedintracerebral hemorrhage within the right frontal, parietal, and temporal lobes as wellas the right thalamus. Edema is present about the margins of the hemorrhage acomponent of this edema, particularly within the right thalamus shows decreaseddiffusion. Small additional separate foci of decreased diffusion are present in theright paramedian frontal lobe, in the cerebral parenchyma cephalad to thehemorrhage, and in the left frontal lobe. No brainstem infarction is evident. Theextent of intraventricular blood is unchanged There is leftward midline shift measuring 8 mm similar to that present onthe CT. No overt brainstem deformation is present. Post craniotomy changes are consistent with those evident on the CT. Thereis a small extra-axial collection along the cerebral convexity. There is mild pachymeningeal enhancement. No bulky or nodular enhancement is presentwithin the area of hematoma. No large vessel occlusion is evident on the flow voids and postcontrastimages. The orbits are of normal appearance. IMPRESSION Unchanged size of large right cerebral hemisphere ICH status postpartial evacuation. Numerous small foci of decreased acute infarction both along and separatefrom the site of hemorrhage. These foci are present in both cerebralhemispheres and have a pattern most consistent with embolic infarction. No evidence of AUTOMOBILE DESIGNER malignancy Thank you for letting us participate in the care of this patient. If youare a health care provider and have any questions regarding this report,please contact the number below. For patients who have questions please contactthe health ocular care technician that requested your imaging first. Electronically signed by: Rios Swartz MD, [facility]([phone]), at 09/20/2024 8:24 AM Neelam Gill APRN IMG MRI ORDERABLES * POC, GLUCOSE (09/19/2024 3:30 PM EDT) [facility] Glucometer, POC 181 65 - 199 mg/dL 09/19/2024 3:30 PM EDT [facility] Comment:Supplemental ranges: <140 mg/dL before meals <180 mg/dL all other times of the day. Blood CAPILLARY BLOOD / Unknown 09/19/2024 3:30 PM EDT 09/19/2024 3:30 PM EDT Serenity Espinosa MD POINT OF CARE TEST O RDERABLES [facility] [place] [address] * POC, GLUCOSE (09/19/2024 12:34 PM EDT) Glucometer, POC 174 65 - 199 mg/dL 09/19/2024 12:34 PM EDT [facility] Comment:Supplemental ranges: <140 mg/dL before meals <180 mg/dL all other times of the day. Blood CAPILLARY BLOOD / Unknown 09/19/2024 12:34 PM EDT 09/19/2024 12:34 PM EDT Serenity Espinosa MD POINT OF CARE TEST O ALDO [facility] [place] [address] * POC, GLUCOSE (09/19/2024 7:35 AM EDT) Glucometer, POC 134 65 - 199 mg/dL 09/19/2024 7:35 AM EDT [facility] Comment:Supplemental ranges: <140 mg/dL before meals <180 mg/dL all other times of the day. Blood CAPILLARY BLOOD / Unknown 09/19/2024 7:35 AM EDT 09/19/2024 7:35 AM EDT Serenity Espinosa MD POINT OF CARE TEST O ALDO [facility] [place] [address] * POC, GLUCOSE (09/19/2024 4:23 AM EDT) Glucometer, POC 131 65 - 199 mg/dL 09/19/2024 4:24 AM EDT [facility] Comment:Supplemental ranges: <140 mg/dL before meals <180 mg/dL all other times of the day. Blood CAPILLARY BLOOD / Unknown 09/19/2024 4:23 AM EDT 09/19/2024 4:24 AM EDT Serenity Espinosa MD POINT OF CARE TEST O RDERABLES Performing Organization Address [facility] Co de Phone Number [facility] [place] [address] * POC, GLUCOSE (09/19/2024 1:00 AM EDT) Glucometer, POC 163 65 - 199 mg/dL 09/19/2024 1:00 AM EDT [facility] Comment:Supplemental ranges: <140 mg/dL before meals <180 mg/dL all other times of the day. Blood CAPILLARY BLOOD / Unknown 09/19/2024 1:00 AM EDT 09/19/2024 1:00 AM EDT Serenity Espinosa MD POINT OF CARE TEST O RDERABLES Performing Organization Address [facility] Co de Phone Number [facility] [place] [address] * (ABNORMAL) Phosphorus (09/19/2024 12:55 AM EDT) Phosphorus 1.7(L) 2.5 - 4.5 mg/dL 09/19/2024 1:38 AM EDT [facility] Blood VENOUS BLOOD SPECIMEN / Unknown IP Care Team Draw / Unknown 09/19/2024 12:55 AM EDT 09/19/2024 1:05 AM EDT Librado Patel MD CHEMISTRY ORDERABLES Performing Organization Address [facility] Co de Phone Number [facility] [place] [address] * Magnesium (09/19/2024 12:55 AM EDT) Magnesium 0.77 0.69 - 1.07 mMol/L 09/19/2024 1:38 AM EDT [facility] Blood VENOUS BLOOD SPECIMEN / Unknown IP Care Team Draw / Unknown 09/19/2024 12:55 AM EDT 09/19/2024 1:05 AM EDT Librado Patel MD CHEMISTRY ORDERABLES [facility] [place] [address] * (ABNORMAL) Basic Metabolic Panel (09/19/2024 12:55 AM EDT) Glucose 164 65 - 199 mg/dL 09/19/2024 1:38 AM EDT [facility] Comment:Glucose Concentratio n >=200 mg/dL plus symptoms is consistent with Diabetes Mellitus. Blood Urea Nitrogen 17 8 - 18 mg/dL 09/19/2024 1:[address] [facility] Creatinine 0.49(L) 0.70 - 1.20 mg/dL 09/19/2024 1:[address] [facility] Sodium 140 135 - 145 mMol/L 09/19/2024 1:[address] [facility] Potassium 3.6 3.5 - 5.0 mMol/L 09/19/2024 1:[address] [facility] Chloride 110(H) 98 - 107 mMol/L 09/19/2024 1:[address] [facility] Carbon Dioxide 21(L) 22 - 31 mMol/L 09/19/2024 1:[address] [facility] Anion Gap 9 5 - 15 mMol/L 09/19/2024 1:[address] [facility] Calcium 8.2(L) 8.5 - 10.5 mg/dL 09/19/2024 1:[address] [facility] Est Glomerular Filtration Rate - Female 100 mL/min/1. 73 m?? 09/19/2024 1:[address] [facility] Comment: This patient's estimated GFR [...] Foundation Blood VENOUS BLOOD SPECIMEN / Unknown IP Care Team Draw / Unknown 09/19/2024 12:55 AM EDT 09/19/2024 1:05 AM EDT Librado Patel MD CHEMISTRY ORDERABLES [facility] [place] [address] * (ABNORMAL) CBC (with Diff) (09/19/2024 12:55 AM EDT) White Blood Cell 18.90(H) 4.00 - 9.50 x10(3)/mc L 09/19/2024 1:10 AM EDT [facility] Red Blood Cell 3.00(L) 4.00 - 5.21 x10(6)/mc L 09/19/2024 1:10 AM T [facility] Hemoglobin 8.9(L) 11.7 - 15.5 g/dL 09/19/2024 1:[address] [facility] Hematocrit 27.1(L) 35.7 - 45.8 % 09/19/2024 1:10 AM T [facility] Mean Cell Volume 90.3 82.6 - 94.4 fL 09/19/2024 1:[address] [facility] Mean Cell Hemoglobin 29.7 27.1 - 32.0 pg 09/19/2024 1:[address] [facility] Mean Cell Hemoglobin Concentration 32.8 31.7 - 35.0 g/dL 09/19/2024 1:[address] [facility] Platelet 204 145 - 357 x10(3)/mc L 09/19/2024 1:[address] [facility] Mean Platelet Volume 10.5 7.6 - 12.9 fL 09/19/2024 1:[address] [facility] RDW Standard Deviation 43.1 37.0 - 46.0 fL 09/19/2024 1:[address] [facility] RDW coefficient of variation 13.1 11.5 - 14.1 % 09/19/2024 1:[address] [facility] NRBC% auto 0.0 % 09/19/2024 1:[address] [facility] NRBC Absolute <0.01 <0.01 x10(3)/mc L 09/19/2024 1:[address] [facility] Neutrophil % 81.5 % 09/19/2024 1:[address] [facility] Neutrophil Absolute (ANC) - Automated 15.41(H) 1.70 - 6.10 x10(3)/mc L 09/19/2024 1:[address] [facility] Lymph % 8.9 % 09/19/2024 1:[address] [facility] Lymph Absolute 1.69 0.90 - 3.20 x10(3)/mc L 09/19/2024 1:[address] [facility] Monocyte % 8.7 % 09/19/2024 1:[address] [facility] Monocyte Absolute 1.64(H) 0.30 - 0.90 x10(3)/mc L 09/19/2024 1:[address] [facility] Eos % 0.1 % 09/19/2024 1:[address] [facility] Eos Absolute <0.04 0.00 - 0.40 x10(3)/mc L 09/19/2024 1:[address] [facility] Basophil % 0.2 % 09/19/2024 1:[address] [facility] Baso Absolute <0.04 0.00 - 0.10 x10(3)/mc L 09/19/2024 1:10 AM EDT [facility] Immature Gran % 0.6 % 1:10 AM EDT [facility] Immature Gran Absolute 0.11(H) 0.00 - 0.04 x10(3)/mc L 09/19/2024 1:10 AM EDT [facility] Blood VENOUS BLOOD SPECIMEN / Unknown IP Care Team Draw / Unknown 09/19/2024 12:55 AM EDT 09/19/2024 1:05 AM EDT Librado Patel MD HEMATOLOGY ORDERABLE S Performing Organization Address City/[facility]/ZIP Co de Phone Number [facility] [place] [place] [address] * POC, GLUCOSE (09/18/2024 8:13 PM EDT) Glucometer, POC 148 65 - 199 mg/dL 09/18/2024 8:13 PM EDT [facility] Comment:Supplemental ranges: <140 mg/dL before meals <180 mg/dL all other times of the day. Blood CAPILLARY BLOOD / Unknown 09/18/2024 8:13 PM EDT 09/18/2024 8:13 PM EDT Serenity Espinosa MD POINT OF CARE TEST O RDERABLES [facility] [place] [address] * POC, GLUCOSE (09/18/2024 4:26 PM EDT) Glucometer, POC 152 65 - 199 mg/dL 09/18/2024 4:27 PM EDT [facility] Comment:Supplemental ranges: <140 mg/dL before meals <180 mg/dL all other times of the day. Blood CAPILLARY BLOOD / Unknown 09/18/2024 4:26 PM EDT 09/18/2024 4:27 PM EDT Serenity Espinosa MD POINT OF CARE TEST O RDERABLES [facility] [place] [address] * Lower Respiratory Culture (09/18/2024 2:44 PM [...] Gill APRN MICROBIOLOGY - GENER AL ORDERABLES [facility] [place] [address] * Blood culture (09/18/2024 12:47 PM EDT) Blood Culture No growth at 120 hours 09/23/2024 2:01 PM EDT [facility] Blood VENOUS BLOOD SPECIMEN / Unknown IP Care Team Draw / Unknown 09/18/2024 12:47 PM EDT 09/18/2024 12:50 PM EDT Neelam Gill APRN MICROBIOLOGY - [place] [address] * Blood culture (09/18/2024 12:47 PM EDT) Blood Culture No growth at 120 hours 09/23/2024 2:01 PM EDT [facility] Blood VENOUS BLOOD SPECIMEN / Unknown IP Care Team Draw / Unknown 09/18/2024 12:47 PM EDT 09/18/2024 12:50 PM EDT Neelam Gill PULLMAN CLERK MICROBIOLOGY - BLOOD ORDERABLES [facility] [place] [address] * XR Abdomen 1 view (Generic) (09/18/2024 12:31 PM EDT) WORKSTATION ID [id number] RAD Anatomical Region Laterality Modality Abdomen N/A Digital Radiogra phy Impressions 09/18/2024 1:05 PM EDT Dobbhoff tube tip along the greater curve of the stomach. Thank you for letting us participate in the care of this patient. ??If you are a health care provider and have any questions regarding this report, please contact the number below. ??For patients who have questions please contact the health ocular care technician that requested your imaging first. ? Narrative 09/18/2024 1:05 PM EDT EXAMINATION: XR ABDOMEN 1 VIEW (GENERIC) CLINICAL HISTORY: post DHT TECHNIQUE: 1 views of the abdomen COMPARISON: 09/16/2024 FINDINGS: Dobbhoff tube is seen with the tip along the mid greater curvature the stomach. Stomach is relatively decompressed. Bowel gas pattern otherwise unremarkable. Likely atelectatic changes at the left lung base. Procedure Note Arie Bhat MD - 09/18/2024 EXAMINATION: XR ABDOMEN 1 VIEW (GENERIC) CLINICAL HISTORY: post DHT TECHNIQUE: 1 views of the abdomen COMPARISON: 09/16/2024 FINDINGS: Dobbhoff tube is seen with the tip along the mid greater curvature thestomach. Stomach is relatively decompressed. Bowel gas pattern otherwiseunremarkable. Likely atelectatic changes at the left lung base. IMPRESSION Dobbhoff tube tip along the greater curve of the stomach. Thank you for letting us participate in the care of this patient. If youare a health care provider and have any questions regarding this report,please contact the number below. For patients who have questions please contactthe health ocular care technician that requested your imaging first. Neelam Gill APRN IMG DX ORDERABLES * POC, GLUCOSE (09/18/2024 12:10 PM EDT) Pathologist [facility] Glucometer, POC 141 65 - 199 mg/dL 09/18/2024 12:11 PM EDT [facility] Comment:Supplemental ranges: <140 mg/dL before meals <180 mg/dL all other times of the day. Blood CAPILLARY BLOOD / Unknown 09/18/2024 12:10 PM EDT 09/18/2024 12:11 PM EDT Serenity Espinosa MD POINT OF CARE TEST O RDERABLES [facility] [place] [address] * XR Chest One View (09/18/2024 8:43 AM EDT) WORKSTATION ID [id number] RAD Anatomical Region Laterality Modality Chest N/A Digital Radiogra phy Impressions 09/18/2024 9:29 AM EDT Tubes and lines as described. Blunting of the left costophrenic angle suggests tiny layering left effusion with associated left basilar consolidation/atelectasis Thank you for letting us participate in the care of this patient. ??If you are a health care provider and have any questions regarding this report, please contact the number below. ??For patients who have questions please contact the health ocular care technician that requested your imaging first. ? Narrative 09/18/2024 9:29 AM EDT EXAMINATION: XR CHEST ONE VIEW CLINICAL INFORMATION: higher vent needs, fever. COMPARISON: 09/17/2024. TECHNIQUE: Portable frontal view of the chest was obtained. FINDINGS: The lungs are well expanded. Endotracheal tube tip approximately 2 cm above the jonathan. Right subclavian central venous catheter tip near the expected cavoatrial junction. Nasogastric tube below the level of the diaphragm. There is blunting left costophrenic angle suggesting small layering left effusion with associated left basilar consolidation/atelectasis. No overt edema. No pneumothorax. Cardiac silhouette within normal limits for size with the subtle atrial excluded device noted. Vascular calcification in the aorta. Degenerative changes in the spine. Procedure Note Arie Bhat MD - 09/18/2024 EXAMINATION: XR CHEST ONE VIEW CLINICAL INFORMATION: higher vent needs, fever. COMPARISON: 09/17/2024. TECHNIQUE: Portable frontal view of the chest was obtained. FINDINGS: The lungs are well expanded. Endotracheal tube tip approximately 2 cmabove the jonathan. Right subclavian central venous catheter tip near the expected cavoatrial junction. Nasogastric tube below the level of the diaphragm.There is blunting left costophrenic angle suggesting small layering left effusionwith associated left basilar consolidation/atelectasis. No overt edema. No pneumothorax. Cardiac silhouette within normal limits for size with thesubtle atrial excluded device noted. Vascular calcification in the aorta.Degenerative changes in the spine. IMPRESSION Tubes and lines as described. Blunting of the left costophrenic anglesuggests tiny layering left effusion with associated left basilar consolidation/atelectasis Thank you for letting us participate in the care of this patient. If youare a health care provider and have any questions regarding this report,please contact the number below. For patients who have questions please contactthe health ocular care technician that requested your imaging first. Neelam Gill APRN IMG DX ORDERABLES * POC, GLUCOSE (09/18/2024 7:47 AM EDT) Glucometer, POC 141 65 - 199 mg/dL 09/18/2024 7:47 AM EDT [facility] Comment:Supplemental ranges: <140 mg/dL before meals <180 mg/dL all other times of the day. Blood CAPILLARY BLOOD / Unknown 09/18/2024 7:47 AM EDT 09/18/2024 7:48 AM EDT Serenity Espinosa MD POINT OF CARE TEST O RDERABLES Performing Organization Address City/[facility] Co de Phone Number [facility] [place] [address] * Sodium (09/18/2024 6:15 AM EDT) Sodium 142 135 - 145 mMol/L 09/18/2024 2:28 PM EDT [facility] Blood VENOUS BLOOD SPECIMEN / Unknown IP Care Team Draw / Unknown 09/18/2024 6:15 AM EDT 09/18/2024 6:21 AM EDT Neelam Gill APRN CHEMISTRY ORDERABLES [facility] [place] [address] * Potassium (09/18/2024 6:15 AM EDT) Potassium 4.0 3.5 - 5.0 mMol/L 09/18/2024 6:35 AM EDT [facility] Blood VENOUS BLOOD SPECIMEN / Unknown IP Care Team Draw / Unknown 09/18/2024 6:15 AM EDT 09/18/2024 6:21 AM EDT Serenity Espinosa MD CHEMISTRY ORDERABLES Performing Organization Address City/[facility]/ZIP Co de Phone Number [facility] [place] [address] * APTT (09/18/2024 6:15 AM EDT) Partial Thromboplastin Time 25 25 - 37 sec 09/18/2024 7:35 AM EDT [facility] Blood VENOUS BLOOD SPECIMEN / Unknown IP Care Team Draw / Unknown 09/18/2024 6:15 AM EDT 09/18/2024 7:05 AM EDT Serenity Espinosa MD HEMATOLOGY ORDERABLE S Performing Organization Address City/[facility]/ZIP Co de Phone Number [facility] [place] [address] * Prothrombin Time (09/18/2024 6:15 AM EDT) Prothrombin Time 12.3 9.4 - 12.5 sec [...] HEMATOLOGY ORDERABLE S [facility] [place] [address] * POC, GLUCOSE (09/18/2024 4:37 AM EDT) Glucometer, POC 157 65 - 199 mg/dL 09/18/2024 4:37 AM EDT [facility] Comment:Supplemental ranges: <140 mg/dL before meals <180 mg/dL all other times of the day. Blood CAPILLARY BLOOD / Unknown 09/18/2024 4:37 AM EDT 09/18/2024 4:38 AM EDT Serenity Espinosa MD POINT OF CARE TEST O RDERABLES [facility] [place] [address] * Scan, Peripheral Blood (09/18/2024 12:20 AM EDT) Pathologist [facility] RBC Morphology Normal 09/18/2024 1:08 AM EDT [facility] Platelet Estimate Normal Normal 09/18/2024 1:08 AM EDT [facility] Blood VENOUS BLOOD SPECIMEN / Unknown IP Care Team Draw / Unknown 09/18/2024 12:20 AM EDT 09/18/2024 12:28 AM EDT Jah Altman APRN HEMATOLOGY ORDERAB LES [facility] [place] [address] * (ABNORMAL) Phosphorus (09/18/2024 12:20 AM EDT) Phosphorus 2.4(L) 2.5 - 4.5 mg/dL 09/18/2024 12:58 AM EDT [facility] Blood VENOUS BLOOD SPECIMEN / Unknown IP Care Team Draw / Unknown 09/18/2024 12:20 AM EDT 09/18/2024 12:28 AM EDT Librado Patel MD CHEMISTRY ORDERABLES [facility] [place] [address] * Magnesium (09/18/2024 12:20 AM EDT) Pathologist [facility] Magnesium 0.81 0.69 - 1.07 mMol/L 09/18/2024 12:58 AM EDT [facility] Blood VENOUS BLOOD SPECIMEN / Unknown IP Care Team Draw / Unknown 09/18/2024 12:20 AM EDT 09/18/2024 12:28 AM EDT Librado Patel MD CHEMISTRY ORDERABLES Performing Organization Address City/[facility]/ZIP Co de Phone Number [facility] [place] [address] * (ABNORMAL) Basic Metabolic Panel (09/18/2024 12:20 AM EDT) Pathologist [facility] Glucose 186 65 - 199 mg/dL 09/18/2024 1:19 AM EDT [facility] Comment:Glucose Concentratio n >=200 mg/dL plus symptoms is consistent with Diabetes Mellitus. Blood Urea Nitrogen 15 8 - 18 mg/dL 09/18/2024 1:19 AM EDT [facility] Creatinine 0.57(L) 0.70 - 1.20 mg/dL 09/18/2024 1:19 AM EDT [facility] Sodium 141 135 - 145 mMol/L 09/18/2024 1:19 AM EDT [facility] Potassium 3.6 3.5 - 5.0 mMol/L 09/18/2024 1:19 AM EDT [facility] Chloride 108(H) 98 - 107 mMol/L 09/18/2024 1:19 AM EDT [facility] Carbon Dioxide 22 22 - 31 mMol/L 09/18/2024 1:19 AM EDT [facility] Anion Gap 11 5 - 15 mMol/L 09/18/2024 1:19 AM EDT [facility] Calcium 8.2(L) 8.5 - 10.5 mg/dL 09/18/2024 1:19 AM EDT [facility] Est Glomerular Filtration Rate - Female 97 mL/min/1. 73 m?? 09/18/2024 1:19 AM EDT [facility] Comment: This patient's [...] Foundation Blood VENOUS BLOOD SPECIMEN / Unknown IP Care Team Draw / Unknown 09/18/2024 12:20 AM EDT 09/18/2024 12:28 AM EDT Librado Patel MD CHEMISTRY ORDERABLES [facility] [place] [address] * (ABNORMAL) CBC (with Diff) (09/18/2024 12:20 AM EDT) White Blood Cell 20.04(H) 4.00 - 9.50 x10(3)/mc L 09/18/2024 1:08 AM EDT [facility] Red Blood Cell 3.37(L) 4.00 - 5.21 x10(6)/mc L 09/18/2024 1:[address] [facility] Hemoglobin 10.2(L) 11.7 - 15.5 g/dL 09/18/2024 1:[address] [facility] Hematocrit 30.3(L) 35.7 - 45.8 % 09/18/2024 1:[address] [facility] Mean Cell Volume 89.9 82.6 - 94.4 fL 09/18/2024 1:[address] [facility] Mean Cell Hemoglobin 30.3 27.1 - 32.0 pg 09/18/2024 1:[address] [facility] Mean Cell Hemoglobin Concentration 33.7 31.7 - 35.0 g/dL 09/18/2024 1:[address] [facility] Platelet 250 145 - 357 x10(3)/mc L 09/18/2024 1:[address] [facility] Mean Platelet Volume 10.3 7.6 - 12.9 fL 09/18/2024 1:[address] [facility] RDW Standard Deviation 42.9 37.0 - 46.0 fL 09/18/2024 1:[address] [facility] RDW coefficient of variation 13.1 11.5 - 14.1 % 09/18/2024 1:[address] [facility] NRBC% auto 0.0 % 09/18/2024 1:[address] [facility] NRBC Absolute <0.01 <0.01 x10(3)/mc L 09/18/2024 1:[address] [facility] Neutrophil % 86.6 % 09/18/2024 1:[address] [facility] Comment:This is an appended report. These results have been appended to a previously preliminary verified report. Neutrophil Absolute (ANC) - Automated 17.33(H) 1.70 - 6.10 x10(3)/mc L 09/18/2024 1:[address] [facility] Comment:This is an appended report. These results have been appended to a previously preliminary verified report. Lymph % 4.7 % 09/18/2024 1:[address] [facility] Comment:This is an appended report. These results have been appended to a previously preliminary verified report. Lymph Absolute 0.95 0.90 - 3.20 x10(3)/mc L 09/18/2024 1:[address] [facility] Comment:This is an appended report. These results have been appended to a previously preliminary verified report. Monocyte % 8.1 % 09/18/2024 1:[address] [facility] Comment:This is an appended report. These results have been appended to a previously preliminary verified report. Monocyte Absolute 1.63(H) 0.30 - 0.90 x10(3)/mc L 09/18/2024 1:[address] [facility] Comment:This is an appended report. These results have been appended to a previously preliminary verified report. Eos % 0.0 % 09/18/2024 1:[address] [facility] Comment:This is an appended report. These results have been appended to a previously preliminary verified report. Eos Absolute <0.04 0.00 - 0.40 x10(3)/mc L 09/18/2024 1:[address] [facility] Comment:This is an appended report. These results have been appended to a previously preliminary verified report. Basophil % 0.1 % 09/18/2024 1:[address] [facility] Comment:This is an appended report. These results have been appended to a previously preliminary verified report. Baso Absolute <0.04 0.00 - 0.10 x10(3)/mc L 09/18/2024 1:[address] [facility] Comment:This is an appended report. These results have been appended to a previously preliminary verified report. Immature Gran % 0.5 % 1:[address] [facility] Comment:This is an appended report. These results have been appended to a previously preliminary verified report. Immature Gran Absolute 0.11(H) 0.00 - 0.04 x10(3)/mc L 09/18/2024 1:08 AM EDT [facility] Comment:This is an appended report. These results have been appended to a previously preliminary verified report. Blood VENOUS BLOOD SPECIMEN / Unknown IP Care Team Draw / Unknown 09/18/2024 12:20 AM EDT 09/18/2024 12:28 AM EDT Librado Patel MD HEMATOLOGY ORDERABLE S Performing Organization Address City/[facility]/ZIP Co de Phone Number [facility] [place] [address] * APTT (09/18/2024 12:20 AM EDT) Partial Thromboplastin Time 25 25 - 37 sec 09/18/2024 12:39 AM EDT [facility] Comment: The PTT is NOT appropriate for heparin monitoring. Use the Anti-Xa level for heparin monitoring (HEP UFH) or LMWH monitoring (HEP LMW). A PTT less than 37 seconds generally indicates adequate hemostasis. Blood VENOUS BLOOD SPECIMEN / Unknown IP Care Team Draw / Unknown 09/18/2024 12:20 AM EDT 09/18/2024 12:28 AM EDT Serenity Espinosa MD HEMATOLOGY ORDERABLE S Performing Organization Address City/[facility]/ZIP Co de Phone Number [facility] [place] [address] * (ABNORMAL) Prothrombin Time (09/18/2024 12:20 AM EDT) Prothrombin Time 12.8(H) 9.4 - 12.5 sec 09/18/2024 12:39 AM EDT [facility] International Normalization Ratio 1.1 <=4.9 09/18/2024 12:39 AM EDT [facility] Comment: [...] IP Care Team Draw / Unknown 09/18/2024 12:20 AM EDT 09/18/2024 12:28 AM EDT Serenity Espinosa MD HEMATOLOGY ORDERABLE S Performing Organization Address [facility] Co de Phone Number [facility] [place] [place] [address] * POC, GLUCOSE (09/17/2024 11:45 PM EDT) Glucometer, POC 179 65 - 199 mg/dL 09/17/2024 11:45 PM EDT [facility] Comment:Supplemental ranges: <140 mg/dL before meals <180 mg/dL all other times of the day. Blood CAPILLARY BLOOD / Unknown 09/17/2024 11:45 PM EDT 09/17/2024 11:45 PM EDT Serenity Espinosa MD POINT OF CARE TEST O RDERAASHLIE Performing Organization Address [facility] Co de Phone Number [facility] [place] [address] * POC, GLUCOSE (09/17/2024 8:34 PM EDT) Glucometer, POC 187 65 - 199 mg/dL 09/17/2024 8:34 PM EDT [facility] Comment:Supplemental ranges: <140 mg/dL before meals <180 mg/dL all other times of the day. Blood CAPILLARY BLOOD / Unknown 09/17/2024 8:34 PM EDT 09/17/2024 8:34 PM EDT Serenity Espinosa MD POINT OF CARE TEST O RDERABLES [facility] [place] [address] * APTT (09/17/2024 5:23 PM EDT) Partial Thromboplastin Time 26 25 - 37 sec 09/17/2024 5:48 PM EDT [facility] Comment: The PTT is NOT appropriate for heparin monitoring. Use the Anti-Xa level for heparin monitoring (HEP UFH) or LMWH monitoring (HEP LMW). A PTT less than 37 seconds generally indicates adequate hemostasis. Blood VENOUS BLOOD SPECIMEN / Unknown IP Care Team Draw / Unknown 09/17/2024 5:23 PM EDT 09/17/2024 5:31 PM EDT Serenity Espinosa MD HEMATOLOGY ORDERABLE S Performing Organization Address [facility] Co de Phone Number [facility] [place] [address] * Prothrombin Time (09/17/2024 5:23 PM EDT) Prothrombin Time 12.1 9.4 - 12.5 sec 09/17/2024 5:48 PM EDT [facility] International Normalization Ratio 1.1 <=4.9 09/17/2024 5:48 PM EDT [facility] Comment: An [...] IP Care Team Draw / Unknown 09/17/2024 5:23 PM EDT 09/17/2024 5:31 PM EDT Serenity Espinosa MD HEMATOLOGY ORDERABLE S Performing Organization Address City/[facility]/ZIP Co de Phone Number [facility] [place] [address] * POC, GLUCOSE (09/17/2024 4:19 PM EDT) Glucometer, POC 180 65 - 199 mg/dL 09/17/2024 4:20 PM EDT [facility] Comment:Supplemental ranges: <140 mg/dL before meals <180 mg/dL all other times of the day. Blood CAPILLARY BLOOD / Unknown 09/17/2024 4:19 PM EDT 09/17/2024 4:20 PM EDT Serenity Espinosa MD POINT OF CARE TEST O RDERABLES [facility] [place] [address] * XR Chest One View (09/17/2024 2:13 PM EDT) [facility] WORKSTATION ID [id number] RAD Anatomical Region Laterality Modality Chest N/A Digital Radiogra phy Impressions 09/17/2024 2:43 PM EDT 1. ??No focal opacity in lung 2. ??Pulmonary edema, progressed since last examination. 3. ??Tip of ET tube is 23 mm superior cuff to jonathan. Consider adjustment. 4. ??Sidehole and tip of NG tube is below the diaphragm. Thank you for letting us participate in the care of this patient. ??If you are a health care provider and have any questions regarding this report, please contact the number below. ??For patients who have questions please contact the health ocular care technician that requested your imaging first. ? Narrative 09/17/2024 2:43 PM EDT EXAMINATION: XR CHEST ONE VIEW CLINICAL HISTORY: Entered by ordering service: central line placement, RN will call TECHNIQUE: Portable chest, 1 view[s] COMPARISON: Radiographs, September 16, 2024. FINDINGS: Endotracheal tube -tip positioned 2 cm proximal to the jonathan. Enteric tube-sidehole and tip are the below the diaphragm but not included on the radiograph. RIGHT central venous catheter-tip projected at mid SVC. This radiograph is rotated. Reduced lung volumes with left lower lobe hazy opacity. Satisfactorily positioned enteric tube with tip and port in the subphrenic left upper quadrant. Nearly gasless abdomen. Pleura: No pneumothorax, Blunted LEFT CP angle represent any combinations of effusion or atelectasis, similar to last exam Lungs: Linear LEFT basilar atelectasis. Indistinct prominent interstitial markings suggest interstitial edema or fluid overload. Cardiomediastinal contour: Unchanged size and contour of the cardiomediastinal hilar silhouettes. Bones: No acute process seen. Procedure Note Zoey Zabala MD - 09/17/2024 EXAMINATION: XR CHEST ONE VIEW CLINICAL HISTORY: Entered by ordering service: central line placement, RN will call TECHNIQUE: Portable chest, 1 view[s] COMPARISON: Radiographs, September 16, 2024. FINDINGS: Endotracheal tube -tip positioned 2 cm proximal to the jonathan. Enteric tube-sidehole and tip are the below the diaphragm but notincluded on the radiograph. RIGHT central venous catheter-tip projected at mid SVC. This radiographis rotated. Reduced lung volumes with left lower lobe hazy opacity. Satisfactorily positioned enteric tube with tip and port in the subphrenicleft upper quadrant. Nearly gasless abdomen. Pleura: No pneumothorax, Blunted LEFT CP angle represent any combinations of effusion oratelectasis, similar to last exam Lungs: Linear LEFT basilar atelectasis. Indistinct prominent interstitial markings suggest interstitial edema orfluid overload. Cardiomediastinal contour: Unchanged size and contour of thecardiomediastinal hilar silhouettes. Bones: No acute process seen. IMPRESSION 1. No focal opacity in lung 2. Pulmonary edema, progressed since last examination. 3. Tip of ET tube is 23 mm superior cuff to jonathan. Consideradjustment. 4. Sidehole and tip of NG tube is below the diaphragm. Thank you for letting us participate in the care of this patient. If youare a health care provider and have any questions regarding this report,please contact the number below. For patients who have questions please contactthe health ocular care technician that requested your imaging first. Electronically signed by: Zoey Zabala MD, [facility]([phone]), at 09/17/2024 2:43 PM Liza Love APRN IMG DX ORDERABLES * APTT (09/17/2024 12:36 PM EDT) Partial Thromboplastin Time 25 25 - 37 sec 09/17/2024 1:07 PM EDT [facility] Comment: The PTT is NOT appropriate for heparin monitoring. Use the Anti-Xa level for heparin monitoring (HEP UFH) or LMWH monitoring (HEP LMW). A PTT less than 37 seconds generally indicates adequate hemostasis. Blood VENOUS BLOOD SPECIMEN / Unknown IP Care Team Draw / Unknown 09/17/2024 12:36 PM EDT 09/17/2024 12:48 PM EDT Serenity Espinosa MD HEMATOLOGY ORDERABLE S [facility] [place] [address] * Prothrombin Time (09/17/2024 12:36 PM EDT) Prothrombin Time 12.0 9.4 - 12.5 sec 09/17/2024 1:07 PM EDT [facility] International Normalization Ratio 1.1 <=4.9 09/17/2024 1:07 PM EDT [facility] Comment: An [...] IP Care Team Draw / Unknown 09/17/2024 12:36 PM EDT 09/17/2024 12:48 PM EDT Serenity Espinosa MD HEMATOLOGY ORDERABLE S Performing Organization Address City/[facility]/ZIP Co de Phone Number [facility] [place] [address] * POC, GLUCOSE (09/17/2024 11:26 AM EDT) Glucometer, POC 183 65 - 199 mg/dL 09/17/2024 11:26 AM EDT [facility] Comment:Supplemental ranges: <140 mg/dL before meals <180 mg/dL all other times of the day. Blood CAPILLARY BLOOD / Unknown 09/17/2024 11:26 AM EDT 09/17/2024 11:27 AM EDT Serenity Espinosa MD POINT OF CARE TEST O RDERABLES Performing Organization Address City/[facility]/ZIP Co de Phone Number [facility] [place] [address] * ECHO LMTD W CONTRAST W LMTD SPEC DOPP COLOR DOPP (09/17/2024 8:18 AM EDT) EF 65 HEART[facility] SYSTEM Anatomical Region Laterality Modality Cardiac Other 09/17/2024 7:35 AM EDT Narrative 09/17/2024 11:18 AM EDT ? Version 2 [address] [place] [address] ? Echocardiogram Report Name: LUCERO BRUNO ?Study Date: 09/17/2024 07:35 AMBP: 142/68 mmHg : 1950 ? Height: 152 cm ? Account: [id number] Age: 74 yrs ? Weight: 89 kg Gender: Female ?BSA: 1.8 m2 Ordering Physician: DUANE CAUSEY Referring Physician: ILIANA CARPENTER Performed By: EDWIN Reason For Study: Atrial Fibrillation, Watchman Exam Location: [facility]. Interpretation Summary 1. Normal left ventriclar wall thickness, chamber size and systolic function. The left ventricular ejection fraction is 75% by Ruth's biplane. There are no segmental wall motion abnormalities. No thrombus visualized with Definity. 2. Normal right ventricular size and systolic function. 3. No hemodynamically significant valvular abnormalities. Compared to 05/06/2024: Findings are stable Procedure Limited - 44169. Image enhancement Definity was used for left [...] Newberry MD - 09/17/2024 Version 2 [address] [place] [address] Echocardiogram Report Name: LUCERO BRUNO [place] Study Date: 407:35 AMBP: 142/68 mmHg : 1950 Height: 152 cm Account: [id number] Age: 74 yrs Weight: 89 kg Gender: Female BSA: 1.8 m2 Ordering Physician: DUANE CAUSEY Referring Physician: ILIANA CARPENTER Performed By: EDWIN Reason For Study: Atrial Fibrillation, Watchman Exam Location: [facility]. Interpretation Summary 1. Normal left ventriclar wall thickness, chamber size and systolicfunction. The left ventricular ejection fraction is 75% by Ruth's biplane. There areno segmental wall motion abnormalities. No thrombus visualized withDefinity. 2. Normal right ventricular size and systolic function. 3. No hemodynamically significant valvular abnormalities. Compared to 05/06/2024: Findings are stable Procedure Limited - [id number]. Image enhancement Definity was used for leftventricular [...] 15-16diffuse Duane Lazcano MD ECHO ORDERABLES * POC, GLUCOSE (09/17/2024 7:57 AM EDT) Glucometer, POC 122 65 - 199 mg/dL 09/17/2024 7:58 AM EDT [facility] Comment:Supplemental ranges: <140 mg/dL before meals <180 mg/dL all other times of the day. Blood CAPILLARY BLOOD / Unknown 09/17/2024 7:57 AM EDT 09/17/2024 7:58 AM EDT Serenity Espinosa MD POINT OF CARE TEST O RDERABLES [facility] [place] [address] * APTT (09/17/2024 6:18 AM EDT) Partial Thromboplastin Time 26 25 - 37 sec 09/17/2024 6:39 AM EDT [facility] Comment: The PTT is NOT appropriate for heparin monitoring. Use the Anti-Xa level for heparin monitoring (HEP UFH) or LMWH monitoring (HEP LMW). A PTT less than 37 seconds generally indicates adequate hemostasis. Blood VENOUS BLOOD SPECIMEN / Unknown IP Care Team Draw / Unknown 09/17/2024 6:18 AM EDT 09/17/2024 6:26 AM EDT Serenity Espinosa MD HEMATOLOGY ORDERABLE S Performing Organization Address City/[facility] Co de Phone Number [facility] [place] [address] * Prothrombin Time (09/17/2024 6:18 AM EDT) Prothrombin Time 11.7 9.4 - 12.5 sec 09/17/2024 6:39 AM EDT [facility] International Normalization Ratio 1.0 <=4.9 09/17/2024 6:39 AM EDT [facility] Comment: [...] IP Care Team Draw / Unknown 09/17/2024 6:18 AM EDT 09/17/2024 6:26 AM EDT Serenity Espinosa MD HEMATOLOGY ORDERABLE S [facility] [place] [address] * Prepare Platelets, Apheresis (09/17/2024 6:07 AM EDT) Status Information Transfused [facility] Product Identification [id number] [facility] Unit Number [id number] [facility] Product Code [id number] [facility] Unit Blood Type APOS [facility] Specimen Expiration Date [id number] [facility] Volulme 236 [facility] Issue Date / Time [id number] [facility] Blood 09/16/2024 5:1 2 PM EDT Duane Lazcano MD BLOOD BANK PRODUCT O RDERABLES [facility] [place] [address] * CT Head wo Contrast (Generic) (09/17/2024 4:51 AM EDT) WORKSTATION ID [id number] RAD Anatomical Region Laterality Modality Head Computed Tomogra phy Addenda Addendum by Elvin Bolden DO on 09/17/2024 9:00 AM EDT --------ADDENDUM #1-------- The Workflow Coordinator spoke with Agapito Tyson NP on 09/17/2024 8:50 AM to relay the results. Thank you for letting us participate in the care of this patient. ??If you are a health care provider and have any questions regarding this report, please contact the number below. ??For patients who have questions please contact the health ocular care technician that requested your imaging first. ? --------ORIGINAL REPORT -------- EXAMINATION: CT HEAD WO CONTRAST (GENERIC) CLINICAL HISTORY: post crani for hemorrhage TECHNIQUE: CT head performed without intravenous contrast administration utilizing dual-energy technique with degeneration of virtual noncontrast images. COMPARISON: 09/16/[address]/CTV 2321 hours FINDINGS: Volume of the dominant right sided parietal hematoma has increased in size and density (example coronal image 43, series 5 at 4.5 x 3.6 cm, previously 4.1 x 2.8 cm). Hemorrhage dissecting into the posterior gangliocapsular tissue has also increased in size slightly. Posterior right parieto-occipital hematoma is similar. Hemorrhagic foci within the right thalamocapsular region is stable. The volume of intraventricular hemorrhage is stable, without interval ventricular dilation. Sulcal/CSF effacement over the right hemisphere is similar, with similar leftward midline and mild subfalcine cingulate herniation. There is no acute confluent ischemic infarct. No no interval osseous or extra cranial findings status post craniotomy changes with mild pneumocephalus. Thin extracerebral hemorrhage along the craniotomy is stable. IMPRESSION: Increased size and density of dominant right parietal hematoma, and of hemorrhage extending medially into the basal ganglia. Foci of thalamocapsular hemorrhage on the right are stable. No evidence of progressive intraventricular hemorrhage or ventricular dilation. No definitive increase in leftward midline shift or herniation. Thank you for letting us participate in the care of this patient. ??If you are a health care provider and have any questions regarding this report, please contact the number below. ??For patients who have questions please contact the health ocular care technician that requested your imaging first. ? Electronically signed by: Elvin Bolden DO, [facility] ?? ([phone]), at 09/17/2024 8:38 AM Addendum by Elvin Bolden DO on 09/17/2024 8:50 AM EDT --------ADDENDUM #1-------- The Workflow Coordinator spoke with Agapito Tyson NP on 09/17/2024 8:50 AM to relay the results. --------ORIGINAL REPORT -------- EXAMINATION: CT HEAD WO CONTRAST (GENERIC) CLINICAL HISTORY: post crani for hemorrhage TECHNIQUE: CT head performed without intravenous contrast administration utilizing dual-energy technique with degeneration of virtual noncontrast images. COMPARISON: 09/16/[address]/CTV 2321 hours FINDINGS: Volume of the dominant right sided parietal hematoma has increased in size and density (example coronal image 43, series 5 at 4.5 x 3.6 cm, previously 4.1 x 2.8 cm). Hemorrhage dissecting into the posterior gangliocapsular tissue has also increased in size slightly. Posterior right parieto-occipital hematoma is similar. Hemorrhagic foci within the right thalamocapsular region is stable. The volume of intraventricular hemorrhage is stable, without interval ventricular dilation. Sulcal/CSF effacement over the right hemisphere is similar, with similar leftward midline and mild subfalcine cingulate herniation. There is no acute confluent ischemic infarct. No no interval osseous or extra cranial findings status post craniotomy changes with mild pneumocephalus. Thin extracerebral hemorrhage along the craniotomy is stable. IMPRESSION: Increased size and density of dominant right parietal hematoma, and of hemorrhage extending medially into the basal ganglia. Foci of thalamocapsular hemorrhage on the right are stable. No evidence of progressive intraventricular hemorrhage or ventricular dilation. No definitive increase in leftward midline shift or herniation. Thank you for letting us participate in the care of this patient. ??If you are a health care provider and have any questions regarding this report, please contact the number below. ??For patients who have questions please contact the health ocular care technician that requested your imaging first. ? Electronically signed by: Elvin Bolden DO, [facility] ?? ([phone]), at 09/17/2024 8:38 AM Impressions 09/17/2024 8:38 AM EDT Increased size and density of dominant right parietal hematoma, and of hemorrhage extending medially into the basal ganglia. Foci of thalamocapsular hemorrhage on the right are stable. No evidence of progressive intraventricular hemorrhage or ventricular dilation. No definitive increase in leftward midline shift or herniation. Thank you for letting us participate in the care of this patient. ??If you are a health care provider and have any questions regarding this report, please contact the number below. ??For patients who have questions please contact the health ocular care technician that requested your imaging first. ? Electronically signed by: Elvin Bolden DO [facility] ??([phone]), at 09/17/2024 8:38 AM Narrative 09/17/2024 8:38 AM EDT EXAMINATION: CT HEAD WO CONTRAST (GENERIC) CLINICAL HISTORY: post crani for hemorrhage TECHNIQUE: CT head performed without intravenous contrast administration utilizing dual-energy technique with degeneration of virtual noncontrast images. COMPARISON: 09/16/[address]/CTV 2321 hours FINDINGS: Volume of the dominant right sided parietal hematoma has increased in size and density (example coronal image 43, series 5 at 4.5 x 3.6 cm, previously 4.1 x 2.8 cm). Hemorrhage dissecting into the posterior gangliocapsular tissue has also increased in size slightly. Posterior right parieto-occipital hematoma is similar. Hemorrhagic foci within the right thalamocapsular region is stable. The volume of intraventricular hemorrhage is stable, without interval ventricular dilation. Sulcal/CSF effacement over the right hemisphere is similar, with similar leftward midline and mild subfalcine cingulate herniation. There is no acute confluent ischemic infarct. No no interval osseous or extra cranial findings status post craniotomy changes with mild pneumocephalus. Thin extracerebral hemorrhage along the craniotomy is stable. Procedure Note Elvin Bolden DO - 09/17/2024 EXAMINATION: CT HEAD WO CONTRAST (GENERIC) CLINICAL HISTORY: post crani for hemorrhage TECHNIQUE: CT head performed without intravenous contrast administration utilizing dual-energy technique with degeneration of virtual noncontrast images. COMPARISON: 09/16/[address]/CTV 2321 hours FINDINGS: Volume of the dominant right sided parietal hematoma has increased in sizeand density (example coronal image 43, series 5 at 4.5 x 3.6 cm, previously4.1 x 2.8 cm). Hemorrhage dissecting into the posterior gangliocapsular tissuehas also increased in size slightly. Posterior right parieto-occipital hematoma is similar. Hemorrhagic foci within the right thalamocapsular region is stable. The volume of intraventricular hemorrhage is stable, without interval ventricular dilation. Sulcal/CSF effacement over the right hemisphere is similar, with similar leftward midline and mild subfalcine cingulate herniation. There is no acute confluent ischemic infarct. No no interval osseous or extra cranial findings status post craniotomychanges with mild pneumocephalus. Thin extracerebral hemorrhage along thecraniotomy is stable. IMPRESSION Increased size and density of dominant right parietal hematoma, and of hemorrhage extending medially into the basal ganglia. Foci of thalamocapsular hemorrhage on the right are stable. No evidenceof progressive intraventricular hemorrhage or ventricular dilation. No definitive increase in leftward midline shift or herniation. Thank you for letting us participate in the care of this patient. If youare a health care provider and have any questions regarding this report,please contact the number below. For patients who have questions please contactthe health ocular care technician that requested your imaging first. Electronically signed by: Elvin Bolden DO, [facility]([phone]), at 09/17/2024 8:38 AM Sushila Espinal MD IMG CT ORDERABLES * POC, GLUCOSE (09/17/2024 3:16 AM EDT) [facility] Glucometer, POC 167 65 - 199 mg/dL 09/17/2024 3:16 AM EDT [facility] Comment:Supplemental ranges: <140 mg/dL before meals <180 mg/dL all other times of the day. Blood CAPILLARY BLOOD / Unknown 09/17/2024 3:16 AM EDT 09/17/2024 3:16 AM EDT Serenity Espinosa MD POINT OF CARE TEST O RDERABLES Performing Organization Address City/[facility]/ZIP Co de Phone Number [facility] [place] [address] * Scan, Peripheral Blood (09/17/2024 12:39 AM EDT) RBC Morphology Normal 09/17/2024 1:33 AM EDT [facility] Platelet Estimate Normal Normal 09/17/2024 1:33 AM EDT [facility] Blood VENOUS BLOOD SPECIMEN / Unknown IP Care Team Draw / Unknown 09/17/2024 12:39 AM EDT 09/17/2024 12:54 AM EDT Jah Altman APRN HEMATOLOGY ORDERAB LES Performing Organization Address City/[facility]/ZIP Co de Phone Number [facility] [place] [address] * (ABNORMAL) Osmolality (09/17/2024 12:39 AM EDT) Osmolality 309(H) 275 - 295 mOsm/kg 09/17/2024 1:40 AM EDT [facility] Blood VENOUS BLOOD SPECIMEN / Unknown IP Care Team Draw / Unknown 09/17/2024 12:39 AM EDT 09/17/2024 12:54 AM EDT Serenity Espinosa MD CHEMISTRY ORDERABLES Performing Organization Address City/[facility]/ZIP Co de Phone Number [facility] [place] [address] * APTT (09/17/2024 12:39 AM EDT) Partial Thromboplastin Time 27 25 - 37 sec 09/17/2024 1:08 AM EDT [facility] Comment: The PTT is NOT appropriate for heparin monitoring. Use the Anti-Xa level for heparin monitoring (HEP UFH) or LMWH monitoring (HEP LMW). A PTT less than 37 seconds generally indicates adequate hemostasis. Blood VENOUS BLOOD SPECIMEN / Unknown IP Care Team Draw / Unknown 09/17/2024 12:39 AM EDT 09/17/2024 12:54 AM EDT Serenity Espinosa MD HEMATOLOGY ORDERABLE S [facility] [place] [place] [address] * Prothrombin Time (09/17/2024 12:39 AM EDT) Prothrombin Time 11.7 9.4 - 12.5 sec 09/17/2024 1:08 AM EDT [facility] International Normalization Ratio 1.0 <=4.9 09/17/2024 1:08 AM EDT [facility] Comment: [...] 09/17/2024 12:54 AM EDT Serenity Espinosa MD HEMATOLOGY ORDERABLE S [facility] [place] [address] * Phosphorus (09/17/2024 12:39 AM EDT) Phosphorus 2.8 2.5 - 4.5 mg/dL 09/17/2024 1:26 AM EDT [facility] Blood VENOUS BLOOD SPECIMEN / Unknown IP Care Team Draw / Unknown 09/17/2024 12:39 AM EDT 09/17/2024 12:54 AM EDT Librado Patel MD CHEMISTRY ORDERABLES [facility] [place] [address] * (ABNORMAL) Basic Metabolic Panel (09/17/2024 12:39 AM EDT) Glucose 218(H) 65 - 199 mg/dL 09/17/2024 1:26 AM EDT [facility] Comment:Glucose Concentratio n >=200 mg/dL plus symptoms is consistent with Diabetes Mellitus. Blood Urea Nitrogen 15 8 - 18 mg/dL 09/17/2024 1:26 AM T [facility] Creatinine 0.67(L) 0.70 - 1.20 mg/dL 09/17/2024 1:[address] [facility] Sodium 141 135 - 145 mMol/L 09/17/2024 1:[address] [facility] Potassium 4.4 3.5 - 5.0 mMol/L 09/17/2024 1:[address] [facility] Chloride 108(H) 98 - 107 mMol/L 09/17/2024 1:[address] [facility] Carbon Dioxide 21(L) 22 - 31 mMol/L 09/17/2024 1:[address] [facility] Anion Gap 12 5 - 15 mMol/L 09/17/2024 1:[address] [facility] Calcium 9.1 8.5 - 10.5 mg/dL 09/17/2024 1:[address] [facility] Est Glomerular Filtration Rate - Female 93 mL/min/1. 73 m?? 09/17/2024 1:[address] [facility] Comment: This patient's estimated GFR [...] Foundation Blood VENOUS BLOOD SPECIMEN / Unknown IP Care Team Draw / Unknown 09/17/2024 12:39 AM EDT 09/17/2024 12:54 AM EDT Librado Patel MD CHEMISTRY ORDERABLES [facility] [place] [address] * Magnesium (09/17/2024 12:39 AM EDT) Magnesium 0.73 0.69 - 1.07 mMol/L 09/17/2024 1:26 AM EDT [facility] Blood VENOUS BLOOD SPECIMEN / Unknown IP Care Team Draw / Unknown 09/17/2024 12:39 AM EDT 09/17/2024 12:54 AM EDT Librado Patel MD CHEMISTRY ORDERABLES [facility] [place] [address] * (ABNORMAL) CBC (with Diff) (09/17/2024 12:39 AM EDT) White Blood Cell 23.60(H) 4.00 - 9.50 x10(3)/mc L 09/17/2024 1:33 AM EDT [facility] Red Blood Cell 4.29 4.00 - 5.21 x10(6)/mc L 09/17/2024 1:33 AM EDT [facility] Hemoglobin 12.9 11.7 - 15.5 g/dL 09/17/2024 1:33 AM EDT [facility] Hematocrit 38.5 35.7 - 45.8 % 09/17/2024 1:[address] [facility] Mean Cell Volume 89.7 82.6 - 94.4 fL 09/17/2024 1:[address] [facility] Mean Cell Hemoglobin 30.1 27.1 - 32.0 pg 09/17/2024 1:[address] [facility] Mean Cell Hemoglobin Concentration 33.5 31.7 - 35.0 g/dL 09/17/2024 1:[address] [facility] Platelet 327 145 - 357 x10(3)/mc L 09/17/2024 1:[address] [facility] Mean Platelet Volume 10.2 7.6 - 12.9 fL 09/17/2024 1:[address] [facility] RDW Standard Deviation 40.6 37.0 - 46.0 fL 09/17/2024 1:[address] [facility] RDW coefficient of variation 12.4 11.5 - 14.1 % 09/17/2024 1:[address] [facility] NRBC% auto 0.0 % 09/17/2024 1:[address] [facility] NRBC Absolute <0.01 <0.01 x10(3)/mc L 09/17/2024 1:[address] [facility] Neutrophil % 90.5 % 09/17/2024 1:[address] [facility] Comment:This is an appended report. These results have been appended to a previously preliminary verified report. Neutrophil Absolute (ANC) - Automated 21.36(H) 1.70 - 6.10 x10(3)/mc L 09/17/2024 1:[address] [facility] Comment:This is an appended report. These results have been appended to a previously preliminary verified report. Lymph % 3.5 % 09/17/2024 1:[address] [facility] Comment:This is an appended report. These results have been appended to a previously preliminary verified report. Lymph Absolute 0.83(L) 0.90 - 3.20 x10(3)/mc L 09/17/2024 1:[address] [facility] Comment:This is an appended report. These results have been appended to a previously preliminary verified report. Monocyte % 5.2 % 09/17/2024 1:[address] [facility] Comment:This is an appended report. These results have been appended to a previously preliminary verified report. Monocyte Absolute 1.22(H) 0.30 - 0.90 x10(3)/mc L 09/17/2024 1:[address] [facility] Comment:This is an appended report. These results have been appended to a previously preliminary verified report. Eos % 0.0 % 09/17/2024 1:[address] [facility] Comment:This is an appended report. These results have been appended to a previously preliminary verified report. Eos Absolute <0.04 0.00 - 0.40 x10(3)/mc L 09/17/2024 1:[address] [facility] Comment:This is an appended report. These results have been appended to a previously preliminary verified report. Basophil % 0.2 % 09/17/2024 1:[address] [facility] Comment:This is an appended report. These results have been appended to a previously preliminary verified report. Baso Absolute 0.04 0.00 - 0.10 x10(3)/mc L 09/17/2024 1:[address] [facility] Comment:This is an appended report. These results have been appended to a previously preliminary verified report. Immature Gran % 0.6 % 1:[address] [facility] Comment:This is an appended report. These results have been appended to a previously preliminary verified report. Immature Gran Absolute 0.15(H) 0.00 - 0.04 x10(3)/mc L 09/17/2024 1:[address] [facility] Comment:This is an appended report. These results have been appended to a previously preliminary verified report. Blood VENOUS BLOOD SPECIMEN / Unknown IP Care Team Draw / Unknown 09/17/2024 12:39 AM EDT 09/17/2024 12:54 AM EDT Librado Patel MD HEMATOLOGY ORDERABLE S Performing Organization Address City/[facility]/ZIP Co de Phone Number [facility] [place] [address] * (ABNORMAL) Glucose (09/17/2024 12:39 AM EDT) Glucose 218(H) 65 - 199 mg/dL 09/17/2024 1:26 AM EDT [facility] Comment:Glucose Concentratio n >=200 mg/dL plus symptoms is consistent with Diabetes Mellitus. Blood VENOUS BLOOD SPECIMEN / Unknown IP Care Team Draw / Unknown 09/17/2024 12:39 AM EDT 09/17/2024 12:54 AM EDT Jah Altman APRN CHEMISTRY ORDERABL ES Performing Organization Address City/[facility]/ZIP Co de Phone Number [facility] [place] [address] * Triglyceride (09/17/2024 12:39 AM EDT) Triglyceride 147 mg/dL 09/17/2024 1:26 AM EDT [facility] Comment: Normal: <150 mg/dL Borderline High: 150-199 mg/dL High: 200-499 mg/dL Very High: > or =500 mg/dL Blood VENOUS BLOOD SPECIMEN / Unknown IP Care Team Draw / Unknown 09/17/2024 12:39 AM EDT 09/17/2024 12:54 AM EDT Jah Altman PULLMAN CLERK CHEMISTRY ORDERABL ES [facility] [place] [address] * HDL/Cholesterol Profile (09/17/2024 12:39 AM EDT) [facility] Signature Cholesterol, Total 203 mg/dL 09/17/2024 1:26 AM [...] 12:39 AM EDT 09/17/2024 12:54 AM EDT [facility] - 09/17/2024 1:26 AM EDT It [...] lower. ?? ACC/AHA Guidelines (most recently Jackie et al. [facility] 08/27/22): * For individuals with atherosclerotic [...] disease) Jah Altman APRN CHEMISTRY ORDERABL ES [facility] [place] [address] * LDL Cholesterol, Direct (09/17/2024 12:39 AM EDT) Pathologist [facility] LDL Cholesterol, Direct 133 mg/dL 09/17/2024 1:26 [...] EDT 09/17/2024 12:54 AM EDT Jah Altman PULLMAN CLERK CHEMISTRY ORDERABL ES [facility] [place] [address] * (ABNORMAL) Hemoglobin A1c (09/17/2024 12:39 AM EDT) Hemoglobin A1c 6.1(H) 4.3 - 5.6 % [...] red blood cell turnover may not be residential sales representative of glycemic control. Reference Interval: [...] from the equation described in: Amari MOSLEY, mW J, Tyree R, et al. ??Translating the A1C assay into estimated average glucose values. ??Diabetes Care 2008:31(8):0667-7055. Additional resources are available on the ADA website (diabetes.org). Jah Altman PULLMAN CLERK CHEMISTRY ORDERABL ES [facility] [place] [address] * CT Venogram Brain (09/16/2024 11:21 PM EDT) WORKSTATION ID [id number] RAD Anatomical Region Laterality Modality Head Computed [...] who have questions please contact the health ocular care technician that requested your imaging first. ? Narrative [...] active hemorrhage in the right parietal lobe. Rhoda Pan MD discussed the results (new right [...] patients who have questions please contactthe health ocular care technician that requested your imaging first. Electronically signed by: Armando Pan MD, [facility]([phone]), at 09/17/2024 1:42 AM Serenity Espinosa MD IMG CT ORDERABLES * CT Head wo Contrast (Generic) (09/16/2024 11:21 PM EDT) WORKSTATION ID [id number] RAD Anatomical Region Laterality Modality Head Computed [...] who have questions please contact the health ocular care technician that requested your imaging first. ? Electronically signed by: Armando Pan MD, [facility] ([phone]), at 09/17/2024 1:42 AM Narrative 09/17/2024 1:42 AM EDT EXAMINATION: CT [...] patients who have questions please contactthe health ocular care technician that requested your imaging first. Electronically signed by: Armando Pan MD, [facility]([phone]), at 09/17/2024 1:42 AM Serenity Espinosa MD IMG CT ORDERABLES * XR Abdomen 1 view (Generic) (09/16/2024 11:00 PM EDT) [employer] WORKSTATION ID [id number] RAD Anatomical Region Laterality Modality Abdomen N/A Digital Radiogra phy Impressions 09/17/2024 12:09 AM EDT Satisfactorily positioned enteric and endotracheal tubes. Left lower lobe atelectasis versus pneumonia. Thank you for letting us participate in the care of this patient. ??If you are a health care provider and have any questions regarding this report, please contact the number below. ??For patients who have questions please contact the health ocular care technician that requested your imaging first. ? Electronically signed by: Pamela Beard MD, [facility] ([phone]), at 09/17/2024 12:09 AM Narrative 09/17/2024 12:09 AM EDT EXAMINATION: XR CHEST ONE VIEW, XR ABDOMEN 1 VIEW (GENERIC) CLINICAL HISTORY: ETT confirmation Enteric tube placement TECHNIQUE: 1 view of the chest and limited abdomen COMPARISON: None FINDINGS: Endotracheal tube tip positioned 2 cm proximal to the jonathan. Reduced lung volumes with left lower lobe hazy opacity. Satisfactorily positioned enteric tube with tip and port in the subphrenic left upper quadrant. Nearly gasless abdomen. Procedure Note Pamela Beard MD - 09/17/2024 EXAMINATION: XR CHEST ONE VIEW, XR ABDOMEN 1 VIEW (GENERIC) CLINICAL HISTORY: ETT confirmation Enteric tube placement TECHNIQUE: 1 view of the chest and limited abdomen COMPARISON: None FINDINGS: Endotracheal tube tip positioned 2 cm proximal to the jonathan. Reduced lung volumes with left lower lobe hazy opacity. Satisfactorily positioned enteric tube with tip and port in the subphrenicleft upper quadrant. Nearly gasless abdomen. IMPRESSION Satisfactorily positioned enteric and endotracheal tubes. Left lower lobe atelectasis versus pneumonia. Thank you for letting us participate in the care of this patient. If youare a health care provider and have any questions regarding this report,please contact the number below. For patients who have questions please contactthe health ocular care technician that requested your imaging first. Electronically signed by: Pamela Beard MD, [facility]([phone]), at 09/17/2024 12:09 AM Serenity Espinosa MD IMG DX ORDERABLES * XR Chest One View (09/16/2024 11:00 PM EDT) WORKSTATION ID [id number] RAD Anatomical Region Laterality Modality Chest N/A Digital Radiogra phy Impressions 09/17/2024 12:09 AM EDT Satisfactorily positioned enteric and endotracheal tubes. Left lower lobe atelectasis versus pneumonia. Thank you for letting us participate in the care of this patient. ??If you are a health care provider and have any questions regarding this report, please contact the number below. ??For patients who have questions please contact the health ocular care technician that requested your imaging first. ? Electronically signed by: Pamela Beard MD, [facility] ([phone]), at 09/17/2024 12:09 AM Narrative 09/17/2024 12:09 AM EDT EXAMINATION: XR CHEST ONE VIEW, XR ABDOMEN 1 VIEW (GENERIC) CLINICAL HISTORY: ETT confirmation Enteric tube placement TECHNIQUE: 1 view of the chest and limited abdomen COMPARISON: None FINDINGS: Endotracheal tube tip positioned 2 cm proximal to the jonathan. Reduced lung volumes with left lower lobe hazy opacity. Satisfactorily positioned enteric tube with tip and port in the subphrenic left upper quadrant. Nearly gasless abdomen. Procedure Note Pamela Beard MD - 09/17/2024 EXAMINATION: XR CHEST ONE VIEW, XR ABDOMEN 1 VIEW (GENERIC) CLINICAL HISTORY: ETT confirmation Enteric tube placement TECHNIQUE: 1 view of the chest and limited abdomen COMPARISON: None FINDINGS: Endotracheal tube tip positioned 2 cm proximal to the jonathan. Reduced lung volumes with left lower lobe hazy opacity. Satisfactorily positioned enteric tube with tip and port in the subphrenicleft upper quadrant. Nearly gasless abdomen. IMPRESSION Satisfactorily positioned enteric and endotracheal tubes. Left lower lobe atelectasis versus pneumonia. Thank you for letting us participate in the care of this patient. If youare a health care provider and have any questions regarding this report,please contact the number below. For patients who have questions please contactthe health ocular care technician that requested your imaging first. Electronically signed by: Pamela Beard MD, [facility]([phone]), at 09/17/2024 12:09 AM Jah Altman APRN IMG DX ORDERABLES * Prepare RBC (09/16/2024 10:50 PM EDT) Status Information Returned [facility] Product Identification RBC [facility] Unit Number [id number] [facility] Product Code [id number] [facility] Unit Blood Type OPOS [facility] Specimen Expiration Date [facility] Volulme 350 [facility] Issue Date / Time [facility] Status Information Returned [facility] Product Identification RBC [facility] Unit Number [id number] [facility] Product Code [id number] [facility] Unit Blood Type OPOS [facility] Specimen Expiration Date [facility] Volulme 350 [facility] Issue Date / Time [facility] Status Information Returned [facility] Product Identification RBC [facility] Unit Number [id number] [facility] Product Code [id number] [facility] Unit Blood Type OPOS [facility] Specimen Expiration Date [facility] Volulme 350 [facility] Issue Date / Time [facility] Blood 09/16/2024 5:3 6 PM EDT Duane Lazcano MD BLOOD BANK PRODUCT O RDERABLES Performing Organization Address City/[facility] Co de Phone Number [facility] [place] [address] * POC, GLUCOSE (09/16/2024 10:05 PM EDT) Glucometer, POC 170 65 - 199 mg/dL 09/16/2024 10:06 PM EDT [facility] Comment:Supplemental ranges: <140 mg/dL before meals <180 mg/dL all other times of the day. Blood CAPILLARY BLOOD / Unknown 09/16/2024 10:05 PM EDT 09/16/2024 10:06 PM EDT Serenity Espinosa MD POINT OF CARE TEST O RDERABLES Performing Organization Address City/[facility]/ZIP Co de Phone Number [facility] [place] [address] * (ABNORMAL) Blood Gas, Arterial POC (09/16/2024 8:22 PM EDT) pH, Arterial 7.33(L) 7.35 - 7.45 09/17/2024 8:[address] [facility] PCO2, Arterial 43 35 - 45 mmHg 09/17/2024 8:[address] [facility] PO2, Arterial 158(H) 85 - 104 mmHg 09/17/2024 8:[address] [facility] Bicarbonate, Arterial 22.1 20.0 - 26.0 mmol/L 09/17/2024 8:[address] [facility] Base Excess, Arterial -3.8(L) -3.0 - 3.0 mmol/L 09/17/2024 8:[address] [facility] Hemoglobin, Arterial 13.7 11.7 - 15.5 g/dL 09/17/2024 8:[address] [facility] Oxyhemoglobin, Arterial 98.0(H) 94.0 - 97.0 % 09/17/2024 8:[address] [facility] Carboxyhemoglobin , Arterial 0.5 % 09/17/2024 8:[address] [facility] Comment: Nonsmokers: 0.5-1.5% COHB ?? Smokers: Variable ??but usually less than 10% ?? Toxic: 20-30% COHB ?? Lethal: Greater than 60% COHB Methemoglobin, Arterial 0.3 <=1.5 % 09/17/2024 8:[address] [facility] Sodium, Arterial 141 135 - 145 mmol/L 09/17/2024 8:[address] [facility] Potassium, Arterial 4.1 3.5 - 5.0 mmol/L 09/17/2024 8:[address] [facility] Chloride, Arterial 104 98 - 107 mmol/L 09/17/2024 8:[address] [facility] Lactate, Arterial 4.0(HHH) 0.5 - 2.2 mmol/L 09/17/2024 8:[address] [facility] IONIZED CALCIUM, ARTERIAL 1.18 1.15 - 1.33 mmol/L 09/17/2024 8:[address] [facility] Glucose, Arterial 165 65 - 199 mg/dL 09/17/2024 8:50 AM EDT [facility] Comment:Glucose Concentratio n >=200 mg/dL plus symptoms is consistent with Diabetes Mellitus. Blood ARTERIAL BLOOD / Unknown 09/16/2024 8:22 PM EDT 09/17/2024 8:50 AM EDT Serenity Espinosa MD POINT OF CARE TEST O RDERABLES [facility] [place] [address] * (ABNORMAL) Surgical Pathology (09/16/2024 7:20 PM EDT) Case Report Surgical Pathology Report ? Case: [id number] ? Authorizing Provider: ??Sushila Espinal MD ? Collected: ? 09/16/20241919 ? Ordering Location: ? Main Operating Room [place] ?? Received: ?09/16/20242123 ? [facility] ? Hospital ? Pathologist: ? Juanito Frye MD ? Specimen: ?Brain, Right, Right-Sided Infraparenchymal Hemorrhage ? 09/29/2024 12:07 PM [facility] Final Diagnosis A. Right-sided Intraparenchymal hemorrhage,excision: Blood clot, consistent with intraparenchymal hematoma. Cerebral amyloid angiopathy. 09/29/2024 12:07 PM [facility] Discussion Hematoxylin and eosin-stained sections of the specimen show sheets of erythrocytes with admixed leukocytes and fibrin strands. There is no evidence of membrane formation. Small fragments of AUTOMOBILE DESIGNER parenchyma and blood vessels are present in the sample. The blood vessels contain eosinophilic material in their thurman. 09/29/2024 12:07 PM [facility] Additional Studies Block Antibody Result (Positive/Negative) A1,A2 Beta-amyloid Positive. 09/29/2024 12:07 PM [facility] Disclaimer(s) Formalin-fixed, paraffin-embedded tissue sections are [...] and other diagnostic tests. 09/29/2024 12:07 PM [facility] Clinical Information A. Brain, Right, Right-Sided Infraparenchymal Hemorrhage *Other - as specified in Clinical Information Dx: R [facility] OR 10 ; [id number] 09/29/2024 12:07 PM EST [facility] Gross Description A. Brain, Right, Right-Sided Infraparenchymal Hemorrhage. A - Labeled/Fixative: Right sided intraparenchymal hemorrhage, fresh. Quantity/Size: Multiple, 9 x 7 x 4 cm. Tissue Description: Aggregate of blood clot with scant interspersed white tissue. Sections/Processing: Airplane Cover Maker sections in 2 cassettes labeled A1-A2. sns 09/29/2024 12:07 PM [facility] Result Note THIS RESULT REQUIRES PHYSICIAN/JESSI FOLLOW UP(A) 09/29/2024 12:07 PM [facility] Tissue BRAIN STRUCTURE / Unknown 09/16/2024 7:20 PM EDT 09/16/2024 9:24 PM EDT Comment:Dx: R [facility] OR 10 ; -[id number] Sushila Espinal MD PATHOLOGY/CYTOLOGY O RDERAASHLIE Performing Organization Address City/State/[facility] Co de Phone Number [facility] [place] [phone] * (ABNORMAL) Blood Gas, Arterial POC (09/16/2024 6:23 PM EDT) pH, Arterial 7.42 7.35 - 7.45 09/17/2024 8:49 AM EDT [facility] PCO2, Arterial 31(L) 35 - 45 mmHg 09/17/2024 8:49 AM EDT [facility] PO2, Arterial 121(H) 85 - 104 mmHg 09/17/2024 8:49 AM EDT [facility] Bicarbonate, Arterial 19.6(L) 20.0 - 26.0 mmol/L 09/17/2024 8:49 AM EDT [facility] Base Excess, Arterial -4.9(L) -3.0 - 3.0 mmol/L 09/17/2024 8:49 AM EDT [facility] Hemoglobin, Arterial 13.4 11.7 - 15.5 g/dL 09/17/2024 8:49 AM EDT [facility] Oxyhemoglobin, Arterial 97.7(H) 94.0 - 97.0 % 09/17/2024 8:49 AM EDT [facility] Carboxyhemoglobin , Arterial 0.2 % 09/17/2024 8:49 AM EDT [facility] Comment: Nonsmokers: 0.5-1.5% COHB ?? Smokers: Variable ??but usually less than 10% ?? Toxic: 20-30% COHB ?? Lethal: Greater than 60% COHB Methemoglobin, Arterial 0.2 <=1.5 % 09/17/2024 8:49 AM EDT [facility] Sodium, Arterial 138 135 - 145 mmol/L 09/17/2024 8:49 AM EDT [facility] Potassium, Arterial 4.2 3.5 - 5.0 mmol/L 09/17/2024 8:49 AM EDT [facility] Chloride, Arterial 105 98 - 107 mmol/L 09/17/2024 8:49 AM EDT [facility] Lactate, Arterial 2.8(H) 0.5 - 2.2 mmol/L 09/17/2024 8:49 AM EDT [facility] IONIZED CALCIUM, ARTERIAL 1.11(L) 1.15 - 1.33 mmol/L 09/17/2024 8:49 AM EDT [facility] Glucose, Arterial 169 65 - 199 mg/dL 09/17/2024 8:49 AM EDT [facility] Comment:Glucose Concentratio n >=200 mg/dL plus symptoms is consistent with Diabetes Mellitus. Blood ARTERIAL BLOOD / Unknown 09/16/2024 6:23 PM EDT 09/17/2024 8:49 AM EDT Serenity Espinosa MD POINT OF CARE TEST O RDERABLES [facility] [place] [address] * (ABNORMAL) Blood Gas, Arterial POC (09/16/2024 5:49 PM EDT) [facility] pH, Arterial 7.34(L) 7.35 - 7.45 09/17/2024 8:[address] [facility] PCO2, Arterial 35 35 - 45 mmHg 09/17/2024 8:[address] [facility] PO2, Arterial 181(H) 85 - 104 mmHg 09/17/2024 8:[address] [facility] Bicarbonate, Arterial 18.5(L) 20.0 - 26.0 mmol/L 09/17/2024 8:[address] [facility] Base Excess, Arterial -7.3(L) -3.0 - 3.0 mmol/L 09/17/2024 8:[address] [facility] Hemoglobin, Arterial 12.8 11.7 - 15.5 g/dL 09/17/2024 8:[address] [facility] Oxyhemoglobin, Arterial 98.1(H) 94.0 - 97.0 % 09/17/2024 8:[address] [facility] Carboxyhemoglobin , Arterial 0.3 % 09/17/2024 8:[address] [facility] Comment: Nonsmokers: 0.5-1.5% COHB ?? Smokers: Variable ??but usually less than 10% ?? Toxic: 20-30% COHB ?? Lethal: Greater than 60% COHB Methemoglobin, Arterial 0.5 <=1.5 % 09/17/2024 8:[address] [facility] Sodium, Arterial 134(L) 135 - 145 mmol/L 09/17/2024 8:[address] [facility] Potassium, Arterial 4.1 3.5 - 5.0 mmol/L 09/17/2024 8:[address] [facility] Chloride, Arterial 103 98 - 107 mmol/L 09/17/2024 8:[address] [facility] Lactate, Arterial 1.9 0.5 - 2.2 mmol/L 09/17/2024 8:[address] [facility] IONIZED CALCIUM, ARTERIAL 1.07(L) 1.15 - 1.33 mmol/L 09/17/2024 8:49 AM EDT [facility] Glucose, Arterial 178 65 - 199 mg/dL 09/17/2024 8:49 AM EDT [facility] Comment:Glucose Concentratio n >=200 mg/dL plus symptoms is consistent with Diabetes Mellitus. Blood ARTERIAL BLOOD / Unknown 09/16/2024 5:49 PM EDT 09/17/2024 8:49 AM EDT Duane Lazcano MD POINT OF CARE TEST O RDERABLES [facility] [place] [address] * CT Head wo Contrast (Generic) (09/16/2024 5:26 PM EDT) [employer] WORKSTATION ID [id number] DH RAD Anatomical Region Laterality Modality Head Computed Tomogra phy Impressions 09/16/2024 6:01 PM EDT Interval expansion of now large right-sided temporal occipital intraparenchymal hemorrhage with significant mass effect resulting in 1 cm leftward midline shift. Per chart review, this patient was seen by neurosurgery and taken emergently to the OR. I have personally reviewed the image(s) and the resident's interpretation and agree with the findings, Lana Reinoso at 09/16/2024 6:01 PM Thank you for letting us participate in the care of this patient. ??If you are a health care provider and have any questions regarding this report, please contact the number below. ??For patients who have questions please contact the health ocular care technician that requested your imaging first. ? Narrative 09/16/2024 6:01 PM EDT EXAMINATION: CT HEAD WO CONTRAST (GENERIC) CLINICAL HISTORY: prior (04/2024) ICH, severe new headache now post procedure. NON -CON only TECHNIQUE: CT head performed without intravenous contrast administration. COMPARISON: CT head without contrast 05/08/2024. FINDINGS: Significant interval enlargement of the right temporal occipital lobe intraparenchymal hemorrhage now measuring up to 8.1 x 5 cm with 1 cm of right to left midline shift. The right lateral ventricle is compressed and there is effacement of the ambient cistern and narrowing of the left. Right cerebral sulcal narrowing. Right uncal and subfalcine herniation. ??Mildly increased vasogenic edema in the right occipital lobe. Jugular narrowing without evidence for CSF entrapment. Right frontotemporal subdural hematoma measures up to 0.7 cm in thickness. Thin subdural hematoma along the falx and right tentorium. Probable scattered right cerebral subarachnoid hemorrhage as well. Procedure Note Lana Reinoso MD - 09/16/2024 EXAMINATION: CT HEAD WO CONTRAST (GENERIC) CLINICAL HISTORY: prior (04/2024) ICH, severe new headache now postprocedure. NON -CON only TECHNIQUE: CT head performed without intravenous contrast administration. COMPARISON: CT head without contrast 05/08/2024. FINDINGS: Significant interval enlargement of the right temporal occipital lobe intraparenchymal hemorrhage now measuring up to 8.1 x 5 cm with 1 cm ofright to left midline shift. The right lateral ventricle is compressed and thereis effacement of the ambient cistern and narrowing of the left. Rightcerebral sulcal narrowing. Right uncal and subfalcine herniation. Mildlyincreased vasogenic edema in the right occipital lobe. Jugular narrowing withoutevidence for CSF entrapment. Right frontotemporal subdural hematoma measures up to 0.7 cm in thickness.Thin subdural hematoma along the falx and right tentorium. Probable scatteredright cerebral subarachnoid hemorrhage as well. IMPRESSION Interval expansion of now large right-sided temporal occipitalintraparenchymal hemorrhage with significant mass effect resulting in 1 cm leftwardmidline shift. Per chart review, this patient was seen by neurosurgery and takenemergently to the OR. I have personally reviewed the image(s) and the resident's interpretationand agree with the findings, Lana Reinoso at 09/16/2024 6:01 PM Thank you for letting us participate in the care of this patient. If youare a health care provider and have any questions regarding this report,please contact the number below. For patients who have questions please contactthe health ocular care technician that requested your imaging first. Duane Lazcano MD IMG CT ORDERABLES * Triglyceride (09/16/2024 5:07 PM EDT) Triglyceride 174 mg/dL 09/16/2024 10:29 PM EDT [facility] Comment: Normal: <150 mg/dL Borderline High: 150-199 mg/dL High: 200-499 mg/dL Very High: > or =500 mg/dL Blood VENOUS BLOOD SPECIMEN / Unknown 09/16/2024 5:07 PM EDT 09/16/2024 5:31 PM EDT Jah Altman PULLMAN CLERK CHEMISTRY ORDERABL ES Performing Organization Address City/[facility]/ZIP Co de Phone Number [facility] [place] [address] * Green Tube HOLD (09/16/2024 5:07 PM EDT) Green Hold Hold for Add-on 09/16/2024 7:01 PM EDT [facility] Blood VENOUS BLOOD SPECIMEN / Unknown 09/16/2024 5:07 PM EDT 09/16/2024 5:31 PM EDT Duane Lazcano MD CHEMISTRY ORDERABLES [facility] [place] [address] * APTT (09/16/2024 5:07 PM EDT) Partial Thromboplastin Time 26 25 - 37 sec 09/16/2024 5:41 PM EDT [facility] Comment: The PTT is NOT appropriate for heparin monitoring. Use the Anti-Xa level for heparin monitoring (HEP UFH) or LMWH monitoring (HEP LMW). A PTT less than 37 seconds generally indicates adequate hemostasis. Blood VENOUS BLOOD SPECIMEN / Unknown IP Care Team Draw / Unknown 09/16/2024 5:07 PM EDT 09/16/2024 5:23 PM EDT Duane Lazcano MD HEMATOLOGY ORDERABLE S Performing Organization Address [facility] Co de Phone Number [facility] [place] [address] * Prothrombin Time (09/16/2024 5:07 PM EDT) Prothrombin Time 11.9 9.4 - 12.5 sec 09/16/2024 5:41 PM EDT [facility] International Normalization Ratio 1.0 <=4.9 09/16/2024 5:41 PM EDT [facility] Comment: An [...] Unknown IP Care Team Draw / Unknown 09/16/2024 5:07 PM EDT 09/16/2024 5:23 PM EDT Duane Lazcano MD HEMATOLOGY ORDERABLE S Performing Organization Address City/[facility] Co de Phone Number [facility] [place] [address] * (ABNORMAL) CBC (with Diff) (09/16/2024 5:07 PM EDT) White Blood Cell 16.82(H) 4.00 - 9.50 x10(3)/mc L 09/16/2024 5:32 PM T [facility] Red Blood Cell 4.72 4.00 - 5.21 x10(6)/mc L 09/16/2024 5:32 PM T [facility] Hemoglobin 14.2 11.7 - 15.5 g/dL 09/16/2024 5:[address] [facility] Hematocrit 42.8 35.7 - 45.8 % 09/16/2024 5:[address] [facility] Mean Cell Volume 90.7 82.6 - 94.4 fL 09/16/2024 5:[address] [facility] Mean Cell Hemoglobin 30.1 27.1 - 32.0 pg 09/16/2024 5:[address] [facility] Mean Cell Hemoglobin Concentration 33.2 31.7 - 35.0 g/dL 09/16/2024 5:[address] [facility] Platelet 269 145 - 357 x10(3)/mc L 09/16/2024 5:[address] [facility] Mean Platelet Volume 10.3 7.6 - 12.9 fL 09/16/2024 5:[address] [facility] RDW Standard Deviation 40.4 37.0 - 46.0 fL 09/16/2024 5:[address] [facility] RDW coefficient of variation 12.3 11.5 - 14.1 % 09/16/2024 5:[address] [facility] NRBC% auto 0.0 % 09/16/2024 5:[address] [facility] NRBC Absolute <0.01 <0.01 x10(3)/mc L 09/16/2024 5:[address] [facility] Neutrophil % 79.2 % 09/16/2024 5:32 PM EDT [facility] Neutrophil Absolute (ANC) - Automated 13.33(H) 1.70 - 6.10 x10(3)/mc L 09/16/2024 5:32 PM EDT [facility] Lymph % 15.0 % 09/16/2024 5:32 PM EDT [facility] Lymph Absolute 2.52 0.90 - 3.20 x10(3)/mc L 09/16/2024 5:32 PM EDT [facility] Monocyte % 4.0 % 09/16/2024 5:32 PM EDT [facility] Monocyte Absolute 0.67 0.30 - 0.90 x10(3)/mc L 09/16/2024 5:32 PM EDT [facility] Eos % 1.1 % 09/16/2024 5:32 PM EDT [facility] Eos Absolute 0.18 0.00 - 0.40 x10(3)/mc L 09/16/2024 5:32 PM EDT [facility] Basophil % 0.2 % 09/16/2024 5:32 PM EDT [facility] Baso Absolute <0.04 0.00 - 0.10 x10(3)/mc L 09/16/2024 5:32 PM EDT [facility] Immature Gran % 0.5 % 5:32 PM EDT [facility] Immature Gran Absolute 0.09(H) 0.00 - 0.04 x10(3)/mc L 09/16/2024 5:32 PM EDT [facility] Blood VENOUS BLOOD SPECIMEN / Unknown IP Care Team Draw / Unknown 09/16/2024 5:07 PM EDT 09/16/2024 5:23 PM EDT Duane Lazcano MD HEMATOLOGY ORDERABLE S [facility] [place] [address] * EKG 12 Lead (09/16/2024 3:33 PM EDT) Ventricular rate 75 BPM MUSE SYSTEM Atrial Rate 75 BPM MUSE SYSTEM P-R Interval 164 ms MUSE SYSTEM QRS Duration 72 ms MUSE SYSTEM Q-T Interval 400 ms MUSE SYSTEM QTC Calculated (Bezet) 446 ms MUSE SYSTEM Calculated P [place] 36 degrees MUSE SYSTEM Calculated R [place] -17 degrees MUSE SYSTEM Calculated T [place] 28 degrees MUSE SYSTEM INTERPRETATION Normal sinus rhythm Normal ECG When compared with ECG of 16-SEP-2024 13:08, No significant change was found Confirmed by MD Bahman, Octavio Mosquera ([id number]) on 09/19/2024 9:11:06 AM MUSE SYSTEM 09/16/2024 3:33 PM EDT 09/19/2024 9:11 AM EDT Duane Lazcano MD ECG ORDERABLES MUSE SYSTEM * CARDIAC CATHETERIZATION (09/16/2024 3:16 PM EDT) Anatomical Region Laterality Modality Other Narrative 09/16/2024 6:52 PM EDT ?[facility] ? Cardiac Catheterization/Intervention Report ? Patient Name: Lucero Bruno [place]. ? Procedure Date: 09/16/2024 ? A #: [id number] ? Primary Physician: Causey, Duane V ? Case #: [id number] ? File Name: [id number] ? Catheterization Order Number: [id number] ? [facility] ? Final Report [place], [place] ? Patient Name: ? Lucero Henriquez. Damion ? ID#: ?[id number] ? : ?1950 ? Procedure Date: ? September 16, 2024 ? Case #: ? [id number] ? Room: ? 6 ? Case Physicians: ?Duane Causey M.D. ? Start: ?14:12 ?Tl Gamino M.D. ?Admission: ??09/16/2024 ?Dr Aviva M.D. ?Fellow: ? Trenton PhillipA. ? Referring Physician: ??Iliana Carpenter APRN ? Procedures: ?* Left Heart Catheterization [...] procedure was Elective. The indication for ?the tin can laborer visit is cardiac arrhythmia. Chest pain symptom assessment ?was: Asymptomatic. ? Technique: ?A 17Fr sheath was inserted in the right femoral vein utilizing the ?Seldinger technique. The left atrium was injected utilizing a 6Fr PIGTAIL ?catheter. Left atrial pressure was performed with a 6Fr ANGLED PIGTAIL ?catheter. Transseptal puncture was performed with an 8.5Fr MailWriterG RF ?Needle. 7,000 units of heparin were [...] for atrial fibrillation. ?The patient had a ZCO0AS5-ESTt score of 4, a HAS-BLED score of [...] A Watchman ?FLX Pro 27 mm (s/l/n [id number]) was prepared and deployed using standard ?technique. [...] to nor was it given in the ?tin can laborer. ?Recommended anti-platelet/anti-thrombotic regimen: ?Continue aspirin 81 mg daily for indefinitely. ?These recommendations are made at the time of the intervention. Patient ?and provider preferences or a changing clinical situation may require ?modification of this regimen. Consult [facility] Interventional Cardiology for ?questions. ? Conclusions: ?* [...] the transesophageal echo during cath. Dr. Hunt ?Anesthesia, M.D. performed the intubation-non cath physician and ?anesthesia. ? Duane Causey M.D. ? Electronically Signed by: Duane Causey M.D. ? Report Finalized: 09/16/2024 ??18:48 ? Report Last Ammended: 09/20/2024 ??11:16 ? Procedure Note Duane Causey MD - 09/20/2024 [facility] Cardiac Catheterization/Intervention Report Patient Name: Lucero Bruno Procedure Date: 09/16/2024 A #: [id number] Primary Physician: Duane Causey V Case #: [id number] File Name: [id number] Catheterization Order Number: [id number] [facility] FinalReport [place], [place] Patient Name: Lucero Bruno ID#:[id number] :1950 Procedure Date: September 16, 2024 Case #: [id number] Room: 6 Case Physicians: Duane Causey M.D. Start: 14:12 Tl Gamino M.D. Admission:09/16/2024 Dr Aviva M.D. Fellow: Ghazala Phillip Referring Physician: Iliana Carpenter APRN Procedures: * Left Heart Catheterization * [...] was designated as ASA Class III. The [facility] clinicalfrailty scale is 5: Mildly Frail. Diagnostic Tests: Prior Coronary Angiography: LV ejection fraction within 6 months is 75%. Electrocardiography: EKG was assessed by ECG. Medications Prior to Procedure: Aspirin and Calcium Channel Blocking Agent. Indications for Diagnostic Cath: The priority of the diagnostic procedure was Elective. Theindication for the tin can laborer visit is cardiac arrhythmia. Chest pain symptomassessment [...] performed for atrialfibrillation. The patient had a VBE0PZ0-TSTw score of 4, a HAS-BLED score of [...] echo guidance using an 8.5 Fr VersaCross [id number] degree introducer and VersaCross pigtail RF wire needle. The left atrial occlusion procedure was performed with fluoroscopyand MONICA guidance. An angled pigtail was placed in the left atrialappendage and exchanged for a 17 Fr Watchman TruSteer delivery sheath. AWatchman FLX Pro 27 mm (s/l/n [id number]) was prepared and deployed usingstandard technique. The [...] prior to nor was it given inthe tin can laborer. Recommended anti-platelet/anti-thrombotic regimen: Continue aspirin 81 mg daily for indefinitely. These recommendations are made at the time of the intervention.Patient and provider preferences or a changing clinical situation mayrequire modification of this regimen. Consult [facility] Interventional Cardiologyfor questions. Conclusions: * Successful left [...] ?Patient Location: ^CA06^A : 1950 ? Account: [id number] Age: 74 yrs Gender: Female Ordering Physician: [...] appearance of pericardium. Single atrial septostomy with ozjg-ev-ezclh flow. See report for additional findings. Procedure [...] is a single atrial septostomy site present. Fhfc-qx-sdbbv flow is present. The appendage orifice measured [...] root diam: 3.0 cm Procedure Note Tl Gamino MD - 09/16/2024 Transesophageal Echocardiogram Report Name: DAMIONLUCERO URIBE Study Date: 09/16/2024 01:44 PM Patient Location: ^AR06^A : 1950 Account:[id number] Age: 74 yrs Gender: Female Ordering Physician: [...] in appearance of pericardium. Single atrialseptostomy with dady-di-gmxqj flow. See report for additional findings. Procedure [...] is a single atrial septostomy site present. Gkgr-gn-djiho flow is present.The appendage orifice measured 21 [...] cm Eri Stovall APRN ECHO ORDERABLES * Scan Doc: Implantable Devices (09/16/2024 12:00 AM EDT) Narrative 09/16/2024 12:00 AM EDT Ordered by an unspecified provider. 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 Unspecified intracranial hemorrhage Atrial fibrillation, unspecified type Presence of Watchman left atrial appendage closure device Right-sided nontraumatic intracerebral hemorrhage, unspecified cerebral location Severe protein-calorie malnutrition Other severe protein-calorie malnutrition S/P craniotomy Other postprocedural status Presence of Watchman left atrial appendage closure device S/P craniotomy Other postprocedural status Severe protein-calorie malnutrition Other severe protein-calorie malnutrition Atrial fibrillation, unspecified type documented in this encounter Admitting Diagnoses Diagnosis Presence of Watchman left atrial appendage closure device documented in this encounter Administered Medications Inactive Administered Medications - up to 3 most recent administrations Medication Order MAR Action Action Date Dose Rate Site acetaminophen (Ofirmev) (1,000 mg/100 mL) infusion 1,000 mg 1,000 mg, Intravenous, at 400 mL/hr, Administer over 15 Minutes, EVERY 6 HOURS SCHEDULED, 4 doses, First dose on 09/18/24 at 0830, Last dose on 09/19/24 at 0000, Maximum dose of acetaminophen is 4,000 mg from all sources in 24 hours. When ordered for pain, acetaminophen should be given even when other ordered pain medications are indicated. , Routine, Is ketorolac (Toradol) IV contraindicated? Yes, Can this patient tolerate oral medications or suppositories? No Given 09/19/2024 12:38 AM EDT 1,000 mg 400 mL/hr Given 09/18/2024 5:52 PM EDT 1,000 mg 400 mL/hr Given 09/18/2024 11:53 AM EDT 1,000 mg 400 mL/hr acetaminophen (Tylenol) (32.02 mg/mL) oral liquid 975 mg 975 mg, Per G Tube, EVERY 6 HOURS PRN, Starting on Ashley 09/16/24 at 2205, Until Fri09/17/24 at 2012, Pain, Fever, pain or oral temperature greater than 100 degrees F (measured by mouth), - Maximum dose of acetaminophen is 4,000 mg from all sources in 24 hours. - Unless otherwise specified, when ordered PRN for pain, acetaminophen should be given first if other PRN pain medications are ordered., Routine Given 09/17/2024 11:36 AM EDT 975 mg acetaminophen (Tylenol) (32.02 mg/mL) oral liquid 975 mg 975 mg, Per NG tube, EVERY 6 HOURS PRN, Starting on Fri09/24/24 at 1413, Until Fri10/04/24 at 1540, Fever, Pain, mild (1-3) pain, temp > 38.3C, - Maximum dose of acetaminophen is 4,000 mg from all sources in 24 hours. - Unless otherwise specified, when ordered PRN for pain, acetaminophen should be given first if other PRN pain medications are ordered., Routine Given 10/04/2024 10:25 AM EST 975 mg Given 09/30/2024 6:26 PM EST 975 mg Given 09/28/2024 4:06 AM EST 975 mg acetaminophen (Tylenol) (32.02 mg/mL) oral liquid 975 mg 975 mg, Per G Tube, EVERY 6 HOURS PRN, Starting on Fri10/04/24 at 1538, Until Tu10/12/24 at 1555, Fever, Pain, mild (1-3) pain, temp > 38.3C, - Maximum dose of acetaminophen is 4,000 mg from all sources in 24 hours. - Unless otherwise specified, when ordered PRN for pain, acetaminophen should be given first if other PRN pain medications are ordered., Routine Given 10/10/2024 11:33 PM EST 975 mg Given 10/09/2024 10:13 PM EST 975 mg Given 10/08/2024 8:36 PM EST 975 mg acetaminophen (Tylenol) tablet 650 mg 650 mg, Oral, EVERY 6 HOURS PRN, Starting on Ashley 09/16/24 at 1539, Until Fri09/16/24 at 2205, Pain, Headaches, - Maximum dose of acetaminophen is 4,000 mg from all sources in 24 hours. - Unless otherwise specified, when ordered PRN for pain, acetaminophen should be given first if other PRN pain medications are ordered., Routine Given 09/16/2024 3:46 PM EDT 650 mg amLODIPine (Norvasc) tablet 5 mg 5 mg, Per NG tube, DAILY, First dose on 09/20/24 at 1000, Until Discontinued, Please hold if SBP less than 120, Routine Given 09/21/2024 8:13 AM EDT 5 mg Given 09/20/2024 10:16 AM EDT 5 mg amLODIPine (Norvasc) tablet 5 mg 5 mg, Oral, DAILY, First dose on Ashley 09/23/24 at 0900, Until Discontinued, Routine Given 09/24/2024 9:39 AM EDT 5 mg Given 09/23/2024 9:27 AM EDT 5 mg amLODIPine (Norvasc) tablet 5 mg 5 mg, Per NG tube, DAILY, First dose (after last modification) on Fri09/25/24 at 0900, Until Discontinued, Hold if SBP <100mmHg or MAP <65mmHg, Routine Given 10/04/2024 8:27 AM EST 5 mg Given 10/03/2024 8:18 AM EST 5 mg Given 10/02/2024 8:31 AM EST 5 mg amLODIPine (Norvasc) tablet 5 mg 5 mg, Per G Tube, DAILY, First dose (after last modification) on Fri10/05/24 at 0900, Until Discontinued, Hold if SBP <100mmHg or MAP <65mmHg, Routine Given 10/11/2024 9:03 AM EST 5 mg Given 10/10/2024 8:09 AM EST 5 mg Given 10/09/2024 8:09 AM EST 5 mg amLODIPine (Norvasc) tablet 5 mg 5 mg, Oral, DAILY, First dose (after last modification) on Fri10/12/24 at 0900, Until Discontinued, Hold if SBP <100mmHg or MAP <65mmHg, Routine Given 10/12/2024 8:11 AM EST 5 mg barium sulfate (E-Z Disk) tablet 0-700 mg 0-700 mg, Oral, ONCE PRN, 1 dose, Starting on Ashley 10/07/24 at 1535, Until 10/08/24 at 1610, Per Protocol, Radiology Contrast, Routine Given 10/08/2024 4:10 PM EST 0 mg barium sulfate (Varibar Thin Liquid) oral powder 0-250 mL 0-250 mL, Oral, ONCE PRN, 1 dose, Starting on Ashley 10/07/24 at 1535, Until 10/08/24 at 1610, Per Protocol, Radiology Contrast, Routine Given 10/08/2024 4:10 PM EST 30 mLs calcium gluconate 1g in sodium chloride 0.9% 50mL 1 g, Intravenous, EVERY HOUR, 2 doses, First dose on 09/26/24 at 0800, Last dose on 09/26/24 at 0900, Administer over 60 Minutes, Warning Vesicant/Irritant Medication New Bag 09/26/2024 9:00 AM EST 1 g 50 mL/hr New Bag 09/26/2024 7:58 AM EST 1 g 50 mL/hr ceFEPime (Maxipime) 1g vial attach to sodium chloride 0.9% 100 mL Mini-Bag Plus 1 g, Intravenous, EVERY 8 HOURS, First dose on 10/09/24 at 1615, Until Discontinued, Administer over 3 Hours, Indication for (Active or Suspected): Urinary Tract/Pyelonephritis / empiric treatment, hospital day 23, catheter removed 10/06 New Bag 10/12/2024 8:12 AM EST 1 g 33.3 mL/hr New Bag 10/11/2024 11:53 PM EST 1 g 33.3 mL/hr New Bag 10/11/2024 4:10 PM EST 1 g 33.3 mL/hr chlorhexidine (Peridex) 0.12 % solution Q-Care Kit 15 mL, Oral, 2 TIMES DAILY, First dose on Ashley 09/16/24 at 2230, Until Discontinued, [place] teeth and / or gums. Scan the CHG vial in the [employer] Q-Care Oral Care Kit from floor stock. Ventilator-associated pneumonia prophylaxis For use in ICU/Critical care locations ONLY. Obtain kit from Floor Stock location. Scan CHG vial in the [employer] Q-Care Oral Care Kit, Routine Given 09/21/2024 8:28 AM EDT 15 mLs Given 09/20/2024 9:47 PM EDT 15 mLs Given 09/20/2024 10:17 AM EDT 15 mLs chlorhexidine (Peridex) 0.12 % solution Q-Care Kit 15 mL, Oral, 2 TIMES DAILY, First dose on Fri09/21/24 at 1330, Until Discontinued, [place] teeth and / or gums. Scan the CHG vial in the [employer] Q-Care Oral Care Kit from floor stock. Ventilator-associated pneumonia prophylaxis For use in ICU/Critical care locations ONLY. Obtain kit from Floor Stock location. Scan CHG vial in the [employer] Q-Care Oral Care Kit, Routine Given 09/26/2024 8:22 AM EST 15 mLs Given 09/25/2024 9:42 PM EDT 15 mLs Given 09/25/2024 9:00 AM EDT 15 mLs clevidipine (Cleviprex) (0.5 mg/mL) infusion 0-16 mg/hr (0-32 mL/hr), Intravenous, CONTINUOUS, Starting on Fri09/19/24 at 1030, Until Fri09/20/24 at 1705, Initiate at 1 mg/hour. Titration instructions: Double infusion rate every 90 seconds until you reach goal SBP less than 160mmHg. Max infusion rate 16 mg/hour, Routine, Clevidipine is restricted to Neuro Critical Care patients refractory to nicardipine or if there are concerns with volume overload secondary to nicardipine. Please indicate if this order meets these criteria: Yes Rate/Dose Verify 09/20/2024 10:00 AM EDT 2 mg/hr 4 mL/hr Rate/Dose Change 09/20/2024 9:09 AM EDT 2 mg/hr 4 mL/hr Restarted 09/20/2024 3:35 AM EDT 1 mg/hr 2 mL/hr dexAMETHasone (PF) (Decadron) (10 mg/mL) injection 8 mg 8 mg, Intravenous, EVERY 8 HOURS SCHEDULED, 6 doses, First dose on Fri09/19/24 at 1100, Last dose on Fri09/21/24 at 0300 Given 09/21/2024 3:11 AM EDT 8 mg Given 09/20/2024 6:00 PM EDT 8 mg Given 09/20/2024 11:55 AM EDT 8 mg dexAMETHasone (PF) (Decadron) (10 mg/mL) injection 8 mg 8 mg, Intravenous, EVERY 8 HOURS SCHEDULED, 10 doses, First dose on Fri09/21/24 at 1430, Last dose on Fri09/24/24 at 1400 Given 09/24/2024 1:59 PM EDT 8 mg Given 09/24/2024 6:21 AM EDT 8 mg Given 09/23/2024 10:56 PM EDT 8 mg dexmedeTOMIDine (Precedex) (4 mcg/mL) in sodium chloride 0.9% 100 mL infusion 0-1.7 mcg/kg/hr ? 64.5 kg Adjusted weight (0-27.4125 mL/hr, rounded to 0-27.4 mL/hr), Intravenous, CONTINUOUS, Starting on Fri09/19/24 at 1300, Until Fri09/21/24 at 1137, Titrate to sedation level of RASS Goal (-)1 to 0. Start at 0.4 mcg/kg/hr. Increase/decrease by 0.4 mcg/kg/hr every 15 minutes until goal reached. Once stable, reassess patient every 30 minutes. Do not exceed 1.7 mcg/kg/hr. Change rate only after assessing and documenting RASS. Reassess sedation scores within 30 minutes after every rate change. If under sedated, increase rate by 0.4 mcg/kg/hr. If over sedated, hold sedative until target RASS (-)1 to 0 achieved and then restart at 50% of previous rate. Call household cook if goal not achieved at maximum rate. If SAT is ordered, and if patient meets criteria for Spontaneous Awakening Trial, titrate per protocol., Routine, Please indicate the name & specialty of the Attending Provider who authorized the use of this medication: Dr Espinosa Rate/Dose Change 09/21/2024 8:46 AM EDT 0.4 mcg/kg/hr 6.5 mL/hr Restarted 09/21/2024 8:28 AM EDT 0.2 mcg/kg/hr 3.2 mL/hr Rate/Dose Change 09/21/2024 6:36 AM EDT 0.2 mcg/kg/hr 3.2 mL/hr dexmedeTOMIDine (Precedex) (4 mcg/mL) in sodium chloride 0.9% 100 mL infusion 0-1.7 mcg/kg/hr ? 63.8 kg Adjusted weight (0-27.115 mL/hr, rounded to 0-27.1 mL/hr), Intravenous, CONTINUOUS, Starting on Fri09/21/24 at 1930, Until Fri09/26/24 at 1514, Titrate to sedation level of RASS Goal (-)1 to 0. Start at 0.4 mcg/kg/hr. Increase/decrease by 0.4 mcg/kg/hr every 15 minutes until goal reached. Once stable, reassess patient every 30 minutes. Do not exceed 1.7 mcg/kg/hr. Change rate only after assessing and documenting RASS. Reassess sedation scores within 30 minutes after every rate change. If under sedated, increase rate by 0.4 mcg/kg/hr. If over sedated, hold sedative until target RASS (-)1 to 0 achieved and then restart at 50% of previous rate. Call household cook if goal not achieved at maximum rate. If SAT is ordered, and if patient meets criteria for Spontaneous Awakening Trial, titrate per protocol., Routine, Please indicate the name & specialty of the Attending Provider who authorized the use of this medication: Dr. Calixto, neurocritical care Rate/Dose Verify 09/26/2024 12:00 AM EDT 0.4 mcg/kg/hr 6.4 mL/hr Rate/Dose Change 09/25/2024 11:00 PM EDT 0.4 mcg/kg/hr 6.4 mL/hr Rate/Dose Verify 09/25/2024 10:00 PM EDT 0.6 mcg/kg/hr 9.6 mL/hr dextrose 50% intravenous solution 25 g 25 g, Intravenous, EVERY 15 MIN PRN, Starting on Fri09/28/24 at 0939, Until Fri10/12/24 at 1555, Low blood sugar, ??Oral treatment preferred For Blood Glucose 50 to 70 mg/dL: ?? -??IF ABLE TO DRINK, give 120 mL juice or regular (not diet) soda - IF NPO, give 15 gram glucose 40% oral gel massaged into buccal mucosa - IF UNCONSCIOUS OR UNCOOPERATIVE, give 25 gram dextrose IV - IF NO IV ACCESS, give 1 mg glucagon IM. For Blood Glucose LESS than 50 mg/dL: ?? -??IF ABLE TO DRINK, give 240 mL juice or regular (not diet) soda - IF NPO, give 30 gram glucose 40% oral gel massaged into buccal mucosa - IF UNCONSCIOUS OR UNCOOPERATIVE, give 25 gram dextrose IV - IF NO IV ACCESS, 1 mg glucagon IM. Recheck BG in 15 minutes. May repeat juice/soda, gel, dextrose or glucagon once per episode. Notify provider if hypoglycemia does not resolve after two treatments. Providers should consider the following: administering longer-acting treatments for the duration of active insulin or hypoglycemia agent for persistent hypoglycemia and re-evaluating active insulin orders before administering the next dose. Warning Vesicant/Irritant Medication , Routine diclofenac (Voltaren) gel Topical (Top), 4 TIMES DAILY PRN, Pain, Starting on 10/10/24 at 1049, Until Fri10/12/24 at 1555, Apply topically to neck and shoulders. Total dose not to exceed 32 grams per day over all affected joints. Doses should be measured using the dosing cards supplied with the product., Where is this medication being applied? Please also specify in administration instructions. Other / neck and shoulders, Dose of medication being applied? 2 gram dose Given 10/10/2024 11:33 PM EST 2 g Diet Tube Feed: Nutren 1.5 (standard, energy-dense) (1.5 kcal/mL) at 40 mL/hr, Administer over 24 Hours, Per G Tube, CONTINUOUS (TUBE FEED), Starting on Fri10/05/24 at 1545, Until Fri10/07/24 at 1138, Administer flushes and check residuals per policy. Rate/Dose Verify 10/07/2024 8:00 AM EST 40 mL/hr Rate/Dose Verify 10/06/2024 8:00 PM EST 40 mL/h r New Bag 10/06/2024 6:00 PM EST 40 mL/hr Diet Tube Feed: Nutren 1.5 (standard, energy-dense) (1.5 kcal/mL) 250 mL, Per G Tube, 4 TIMES DAILY, First dose on Fri10/07/24 at 1300, Until Discontinued, Administer over 5-60 Minutes, If giving via syringe method, administer over 5 minutes If giving via pump, administer at maximum rate of 400 mL/hour. Administer flushes and check residuals per policy. New Bag 10/12/2024 12:17 PM EST 250 mLs 250 mL/h r New Bag 10/12/2024 8:13 AM EST 250 mLs 250 mL/hr New Bag 10/11/2024 8:44 PM EST 250 mLs dilTIAZem (Cardizem) tablet 60 mg 60 mg, Per NG tube, EVERY 6 HOURS SCHEDULED, First dose (after last modification) on Fri09/17/24 at 0000, Until Discontinued, Hold for HR less than or equal to 60bpm and/or SBP less than or equal to 100mmHg, Routine Given 09/19/2024 12:38 AM EDT 60 m g Given 09/18/2024 5:54 PM EDT 60 mg Given 09/18/2024 12:49 PM EDT 60 mg dilTIAZem (Cardizem) tablet 90 mg 90 mg, Per NG tube, EVERY 6 HOURS SCHEDULED, First dose (after last modification) on Fri09/19/24 at 0600, Until Discontinued, Hold for HR less than or equal to 60bpm and/or SBP less than or equal to 100mmHg or on pressor, Routine Given 10/04/2024 5:46 AM EST 90 mg Given 10/03/2024 11:59 PM EST 90 mg Given 10/03/2024 6:09 PM EST 90 mg dilTIAZem (Cardizem) tablet 90 mg 90 mg, Per G Tube, EVERY 6 HOURS SCHEDULED, First dose (after last modification) on Fri10/04/24 at 1800, Until Discontinued, Hold for HR less than or equal to 60bpm and/or SBP less than or equal to 100mmHg or on pressor, Routine Given 10/11/2024 12:11 PM EST 90 mg Given 10/11/2024 5:56 AM EST 90 mg Given 10/10/2024 11:34 PM EST 90 mg dilTIAZem (Cardizem) tablet 90 mg 90 mg, Oral, EVERY 6 HOURS SCHEDULED, First dose (after last modification) on Fri10/11/24 at 1800, Until Discontinued, Hold for HR less than or equal to 60bpm and/or SBP less than or equal to 100mmHg or on pressor, Routine Given 10/12/2024 12:16 PM EST 90 mg Given 10/12/2024 5:26 AM EST 90 mg Given 10/12/2024 12:00 AM EST 90 mg diphenhydrAMINE (Benadryl) (50 mg/mL) injection 25 mg 25 mg, Intravenous, EVERY 6 HOURS SCHEDULED, First dose on Ashley 10/07/24 at 1800, Until Discontinued, Routine Given 10/07/2024 5:30 PM EST 25 mg docusate sodium (Colace) (10 mg/mL) oral liquid 100 mg 100 mg, Per NG tube, 2 TIMES DAILY, First dose on Ashley 09/16/24 at 2300, Until Discontinued, May give PO or Per Tube. Hold for loose stool., Routine Given 09/25/2024 9:41 PM EDT 100 mg Given 09/24/2024 9:42 PM EDT 100 mg Given 09/23/2024 8:15 PM EDT 100 mg docusate sodium (Colace) (10 mg/mL) oral liquid 100 mg 100 mg, Per G Tube, 2 TIMES DAILY PRN, Starting on Fri10/04/24 at 1538, Until Fri10/11/24 at 1507, Constipation, May give PO or Per Tube. Hold for loose stool., Routine Given 10/08/2024 11:02 PM EST 100 mg docusate sodium (Colace) (10 mg/mL) oral liquid 100 mg 100 mg, Oral, 2 TIMES DAILY PRN, Starting on Fri10/11/24 at 1506, Until Fri10/12/24 at 1555, Constipation, May give PO or Per Tube. Hold for loose stool., Routine enalaprilat (Vasotec) (1.25 mg/mL) injection 1.25 mg 1.25 mg, Intravenous, Administer over 5 Minutes, EVERY 6 HOURS PRN, Starting on Ashley 09/16/24 at 2205, Until Fri09/20/24 at 0932, Hypertension, - Administer if inadequate blood pressure control in 30 minutes despite labetaloL. enalaprilat can be given with labetaloL or niCARdipine. - Give when SBP is greater than 140 mmHg., Routine Given 09/17/2024 7:18 AM EDT 1.25 mg Given 09/17/2024 1:09 AM EDT 1.25 mg enoxaparin (Lovenox) (40 mg/0.4 mL) subcutaneous injection 40 mg 40 mg, Subcutaneous, NIGHTLY, First dose on Fri09/29/24 at 2100, Until Discontinued, Routine Given 10/11/2024 8:35 PM EST 40 mg Given 10/10/2024 8:38 PM EST 40 mg Ri ght Lower Quadrant Given 10/09/2024 8:14 PM EST 40 mg famotidine (Pepcid) tablet 20 mg 20 mg, Per NG tube, 2 TIMES DAILY, First dose (after last modification) on Fri09/16/24 at 2300, Until Discontinued, Routine Given 09/21/2024 8:13 AM EDT 20 mg Given 09/20/2024 9:43 PM EDT 20 mg Given 09/20/2024 10:12 AM EDT 20 mg famotidine (Pepcid) tablet 20 mg 20 mg, Per NG tube, 2 TIMES DAILY, First dose on Fri09/21/24 at 2100, Until Discontinued, Routine Given 09/26/2024 8:14 AM EST 20 mg Given 09/25/2024 9:41 PM EDT 20 mg Given 09/25/2024 8:59 AM EDT 20 mg fentaNYL (PF) (50 mcg/mL) injection 100 mcg 100 mcg, Intravenous, ONCE, 1 dose, On Fri09/21/24 at 1330, Routine Given 09/21/2024 12:40 PM EDT 100 mcg fentaNYL (PF) (50 mcg/mL) injection 25 mcg 25 mcg, Intravenous, EVERY 30 MIN PRN, Starting on Fri09/16/24 at 1530, Until Fri09/16/24 at 1728, Pain, sheath removal, Maximum of 4 doses while in Cath Recovery Unit, Cath (Recovery-Hospital Unit), Routine Given 09/16/2024 4:16 PM EDT 25 mcg fentaNYL (PF) (50 mcg/mL) injection 25 mcg 25 mcg, Intravenous, EVERY 1 HOUR PRN, Starting on Fri09/17/24 at 0050, Until Fri09/21/24 at 1137, Pain, Routine Given 09/18/2024 8:02 PM EDT 25 mcg Given 09/18/2024 11:36 AM EDT 25 mcg Given 09/18/2024 4:12 AM EDT 25 mcg fentaNYL (PF) (50 mcg/mL) injection 25 mcg 25 mcg, Intravenous, EVERY 30 MIN PRN, Starting on Fri09/24/24 at 1544, Until Fri09/28/24 at 0703, Pain, Routine Given 09/28/2024 4:57 AM EST 25 mcg Given 09/27/2024 4:34 AM EST 25 mcg Given 09/26/2024 10:18 AM EST 25 mcg fentaNYL (PF) (50 mcg/mL) injection 75 mcg 75 mcg, Intravenous, ONCE, 1 dose, On Fri09/17/24 at 0500, For MRI, Routine Given 09/17/2024 4:30 AM EDT 75 mcg fentaNYL (PF) (Sublimaze) 50 mcg/mL injection 1 dose, Starting on Fri09/21/24 at 1229, Until Fri09/21/24 at 1240, Virgen Olmos: cabinet override free water for feeding tube 30 mL 30 mL, FEEDING TUBE, EVERY 4 HOURS SCHEDULED, First dose on Fri10/05/24 at 1600, Until Discontinued, Routine Given 10/07/2024 12:00 PM EST 30 mLs Given 10/07/2024 8:00 AM EST 30 mLs Given 10/07/2024 4:00 AM EST 30 mLs free water for feeding tube 30 mL 30 mL, FEEDING TUBE, EVERY 4 HOURS SCHEDULED, First dose on Fri10/07/24 at 1230, Until Discontinued, Routine Given 10/12/2024 12:00 PM EST 30 mLs Given 10/12/2024 8:00 AM EST 30 mLs Given 10/12/2024 12:00 AM EST 30 mLs furosemide (Lasix) (10 mg/mL) injection 20 mg 20 mg, Intravenous, ONCE, 1 dose, On Fri10/01/24 at 1145 Given 10/01/2024 11:54 AM EST 20 mg furosemide (Lasix) (10 mg/mL) injection 40 mg 40 mg, Intravenous, ONCE, 1 dose, On Fri09/19/24 at 0815 Given 09/19/2024 8:39 AM EDT 40 mg furosemide (Lasix) (10 mg/mL) injection 40 mg 40 mg, Intravenous, ONCE, 1 dose, On Ashley 09/30/24 at 0945 Given 09/30/2024 9:50 AM EST 40 mg gadoterate meglumine (Dotarem) (0.5 mMol/mL) injection solution 0-100 mL 0-100 mL, Intravenous, ONCE PRN, 1 dose, Starting on 09/19/24 at 1653, Until 09/19/24 at 1709, Per Protocol, Radiology Contrast, Routine Given 09/19/2024 5:09 PM EDT 19 mLs gadoterate meglumine (Dotarem) (0.5 mMol/mL) injection solution 0-100 mL 0-100 mL, Intravenous, ONCE PRN, 1 dose, Starting on 10/04/24 at 2215, Until 10/04/24 at 2215, Per Protocol, Radiology Contrast, Routine Given 10/04/2024 10:15 PM EST 16 mL s glucagon (Glucagen) (1 mg/mL) injection solution 1 mg 1 mg, Intramuscular, EVERY 15 MIN PRN, Starting on Fri09/28/24 at 0939, Until Fri10/12/24 at 1555, Low blood sugar, ??Oral treatment preferred For Blood Glucose 50 to 70 mg/dL: ?? -??IF ABLE TO DRINK, give 120 mL juice or regular (not diet) soda - IF NPO, give 15 gram glucose 40% oral gel massaged into buccal mucosa - IF UNCONSCIOUS OR UNCOOPERATIVE, give 25 gram dextrose IV - IF NO IV ACCESS, give 1 mg glucagon IM. For Blood Glucose LESS than 50 mg/dL: ?? -??IF ABLE TO DRINK, give 240 mL juice or regular (not diet) soda - IF NPO, give 30 gram glucose 40% oral gel massaged into buccal mucosa - IF UNCONSCIOUS OR UNCOOPERATIVE, give 25 gram dextrose IV - IF NO IV ACCESS, 1 mg glucagon IM. Recheck BG in 15 minutes. May repeat juice/soda, gel, dextrose or glucagon once per episode. Notify provider if hypoglycemia does not resolve after two treatments. Providers should consider the following: administering longer-acting treatments for the duration of active insulin or hypoglycemia agent for persistent hypoglycemia and re-evaluating active insulin orders before administering the next dose., Routine glucose (Glutose) 40% oral geL 15-30 g of glucose, Buccal, EVERY 15 MIN PRN, Starting on Fri09/28/24 at 0939, Until Fri10/12/24 at 1555, Low blood sugar, ??Oral treatment preferred For Blood Glucose 50 to 70 mg/dL: ?? -??IF ABLE TO DRINK, give 120 mL juice or regular (not diet) soda - IF NPO, give 15 gram glucose 40% oral gel massaged into buccal mucosa - IF UNCONSCIOUS OR UNCOOPERATIVE, give 25 gram dextrose IV - IF NO IV ACCESS, give 1 mg glucagon IM. For Blood Glucose LESS than 50 mg/dL: ?? -??IF ABLE TO DRINK, give 240 mL juice or regular (not diet) soda - IF NPO, give 30 gram glucose 40% oral gel massaged into buccal mucosa - IF UNCONSCIOUS OR UNCOOPERATIVE, give 25 gram dextrose IV - IF NO IV ACCESS, 1 mg glucagon IM. Recheck BG in 15 minutes. May repeat juice/soda, gel, dextrose or glucagon once per episode. Notify provider if hypoglycemia does not resolve after two treatments. Providers should consider the following: administering longer-acting treatments for the duration of active insulin or hypoglycemia agent for persistent hypoglycemia and re-evaluating active insulin orders before administering the next dose. 1 tube of Glutose-15 contains 15 grams of glucose (net weight of tube = 37.5 grams.), Routine heparin (porcine) (5,000 units/1 mL) subcutaneous injection 5,000 Units 5,000 Units, Subcutaneous, EVERY 8 HOURS SCHEDULED, First dose on Fri09/20/24 at 1400, Until Discontinued, Routine Given 09/20/2024 2:35 PM EDT 5,000 Units heparin (porcine) (5,000 units/1 mL) subcutaneous injection 5,000 Units 5,000 Units, Subcutaneous, EVERY 8 HOURS SCHEDULED, First dose on Fri09/21/24 at 2200, Until Discontinued, Routine Given 09/29/2024 5:15 AM EST 5,000 Units Given 09/28/2024 10:45 PM EST 5,000 Units Given 09/28/2024 2:20 PM EST 5,000 Units ibuprofen (Advil) tablet 600 mg 600 mg, Oral, DAILY, 1 dose, First dose on [place] 10/07/24 at 1345, Administer orally with milk or food to minimize GI irritation. Maximum dose of 3,200 mg from all sources in 24 hours, Routine Given 10/07/2024 1:32 PM EST 600 mg insulin lispro (HumaLOG;Admelog) (100 unit/mL) subcutaneous injection vial 0-3 Units 0-3 Units, Subcutaneous, EVERY 4 HOURS SCHEDULED, First dose on Fri09/22/24 at 0800, Until Discontinued, For Peptamen intense VPH tube feed - 76 grams of carbohydrate per 1000 cc HOLD if tube feed not running HOLD if BG less than 75 Based on 1:7 I:C ratio TO COVER THE NEXT 4 HOURS OF TUBE FEEDS 10 -19ml per hour give 0 units every 4 hours 20-29 ml per hour give 1 units every 4 hours 30-49 ml per hour give 2 units every 4 hours 50-60 ml per hour give 3 units every 4 hours If greater than 250 or change in tube feed call for new orders. , Routine Given 10/06/2024 4:28 PM EST 2 Units Given 10/06/2024 12:28 PM EST 2 Units Given 10/06/2024 8:38 AM EST 2 Units insulin lispro (HumaLOG;Admelog) (100 unit/mL) subcutaneous injection vial 0-8 Units 0-8 Units, Subcutaneous, 4 TIMES DAILY, First dose (after last modification) on Fri10/07/24 at 1300, Until Discontinued, TUBE FEED ASSOCIATED Give 1 unit for every 10 grams carbohydrate. Hold if not eating or if BG less than 70 mg/dL. , Routine Given 10/08/2024 8:53 AM EST 4 Units Given 10/07/2024 9:21 PM EST 4.5 Units Given 10/07/2024 4:30 PM EST 4 Units insulin lispro (HumaLOG;Admelog) (100 unit/mL) subcutaneous injection vial 1-4 Units 1-4 Units, Subcutaneous, EVERY 4 HOURS SCHEDULED, First dose on Fri09/17/24 at 0145, Until Discontinued, CORRECTION BOLUS [1-4 Units] Sensitive Sliding Scale (BG in mg/dL): Correction factor 40 (1 unit of insulin is expected to drop the glucose 40 mg/dL) ?? BG 160 - 200 Give 1 unit BG 201 - 240 Give 2 units BG 241 - 280 Give 3 units and recheck BG in 2 hours. BG greater than 280, give 4 units and recheck BG in 2 hours. - If recheck BG is LESS than 280, give no insulin and resume schedule - If recheck BG is GREATER than or EQUAL to 280, give 4 units and repeat BG in 2 hours (no more than 3 times)??& call for new insulin orders. DO NOT hold if NPO, unless specifically directed to do so by written order. ?? Per Inpatient Subcutaneous Insulin Policy, recheck a BG of greater than 240 mg/dL in 2 hours., Routine Given 09/19/2024 12:42 PM EDT 1 Units Given 09/19/2024 1:00 AM EDT 1 Units Given 09/17/2024 11:47 PM EDT 1 Units R ight Lower Quadrant insulin lispro (HumaLOG;Admelog) (100 unit/mL) subcutaneous injection vial 1-6 Units 1-6 Units, Subcutaneous, EVERY 4 HOURS SCHEDULED, First dose (after last modification) on Fri09/19/24 at 1600, Until Discontinued, CORRECTION BOLUS [1-6 Units] Moderate Sliding Scale (BG in mg/dL): Correction factor 20 (1 unit of insulin is expected to drop the glucose 20 mg/dL) BG 140 - 160 Give 1 unit BG 161 - 180 Give 2 units BG 181 - 200 Give 3 units BG 201 - 220 Give 4 units BG 221 - 240 Give 5 units BG greater than 240, give 6 units and recheck BG in 2 hours. - If recheck BG is LESS than 240, give no insulin and resume schedule. - If recheck BG is GREATER than or EQUAL to 240, give 6 units and repeat BG in 2 hours (no more than 3 times) & call for new insulin orders. DO NOT hold if NPO, unless specifically directed to do so by written order. ?? Per Inpatient Subcutaneous Insulin Policy, recheck a BG of greater than 240 mg/dL in 2 hours., Routine Given 09/20/2024 9:43 PM EDT 3 Units Given 09/20/2024 4:04 PM EDT 3 Units Given 09/20/2024 11:55 AM EDT 3 Units insulin lispro (HumaLOG;Admelog) (100 unit/mL) subcutaneous injection vial 2-12 Units 2-12 Units, Subcutaneous, EVERY 4 HOURS SCHEDULED, First dose on Fri09/21/24 at 0000, Until Discontinued, CORRECTION BOLUS [2-12 Units] Resistant Sliding Scale (BG in mg/dL) Correction Factor 10 (1 unit of insulin is expected to drop the glucose 10 mg/dL) ?? BG 140 - 160 Give 2 units BG 161 - 180 Give 4 units BG 181 - 200 Give 6 units BG 201 - 220 Give 8 units BG 221 - 240 Give 10 units BG greater than 240, give 12 units and recheck BG in 2 hours. - If recheck BG is LESS than 240, give no insulin and resume schedule. - If recheck BG is GREATER than or EQUAL to 240, give 12 units and repeat BG in 2 hours (no more than 3 times) & call for new insulin orders. DO NOT hold if NPO, unless specifically directed to do so by written order. ?? Per Inpatient Subcutaneous Insulin Policy, recheck a BG of greater than 240 mg/dL in 2 hours, Routine Given 10/07/2024 11:31 AM EST 4 Units Given 10/07/2024 8:42 AM EST 4 Units Given 10/07/2024 4:17 AM EST 4 Units insulin lispro (HumaLOG;Admelog) (100 unit/mL) subcutaneous injection vial 2-12 Units 2-12 Units, Subcutaneous, EVERY 4 HOURS SCHEDULED, First dose on [place] 10/07/24 at 1215, Until Discontinued, CORRECTION BOLUS [2-12 Units] Resistant Sliding Scale (BG in mg/dL) Correction Factor 10 (1 unit of insulin is expected to drop the glucose 10 mg/dL) ?? BG 140 - 160 Give 2 units BG 161 - 180 Give 4 units BG 181 - 200 Give 6 units BG 201 - 220 Give 8 units BG 221 - 240 Give 10 units BG greater than 240, give 12 units and recheck BG in 2 hours. - If recheck BG is LESS than 240, give no insulin and resume schedule. - If recheck BG is GREATER than or EQUAL to 240, give 12 units and repeat BG in 2 hours (no more than 3 times) & call for new insulin orders. DO NOT hold if NPO, unless specifically directed to do so by written order. ?? Per Inpatient Subcutaneous Insulin Policy, recheck a BG of greater than 240 mg/dL in 2 hours, Routine Given 10/08/2024 1:07 AM EST 4 Units Left Lower Quadrant Given 10/07/2024 4:29 PM EST 4 Units insulin lispro (HumaLOG;Admelog) (100 unit/mL) subcutaneous injection vial 2-12 Units 2-12 Units, Subcutaneous, USER SPECIFIED (5 times per day), First dose (after last modification) on Fri10/08/24 at 1300, Until Discontinued, CORRECTION BOLUS [2-12 Units] Resistant Sliding Scale (BG in mg/dL) Correction Factor 10 (1 unit of insulin is expected to drop the glucose 10 mg/dL) ?? BG 140 - 160 Give 2 units BG 161 - 180 Give 4 units BG 181 - 200 Give 6 units BG 201 - 220 Give 8 units BG 221 - 240 Give 10 units BG greater than 240, give 12 units and recheck BG in 2 hours. - If recheck BG is LESS than 240, give no insulin and resume schedule. - If recheck BG is GREATER than or EQUAL to 240, give 12 units and repeat BG in 2 hours (no more than 3 times) & call for new insulin orders. DO NOT hold if NPO, unless specifically directed to do so by written order. ?? Per Inpatient Subcutaneous Insulin Policy, recheck a BG of greater than 240 mg/dL in 2 hours, Routine Given 10/12/2024 12:24 PM EST 2 Units Given 10/12/2024 9:11 AM EST 2 Units Given 10/12/2024 2:03 AM EST 4 Units insulin lispro (HumaLOG;Admelog) (100 unit/mL) subcutaneous injection vial 4 Units 4 Units, Subcutaneous, USER SPECIFIED (4 times per day), First dose (after last modification) on Fri10/08/24 at 1300, Until Discontinued, For Nutren 1.5 tube feed - 176 grams of carbohydrate per 1000 cc HOLD if tube feed not running HOLD if BG less than 70 Based on 1:10 I:C ratio TO COVER THE NEXT 4 HOURS OF TUBE FEEDS Administer 4 units lispro for 250 ml bolus, administer 10 to 15 minutes before start of bolus If changed from 250mls or change in tube feed formula call for new orders. , Routine Given 10/12/2024 12:24 PM EST 4 Units Given 10/12/2024 9:10 AM EST 4 Units Given 10/11/2024 8:44 PM EST 4 Units Ri ght Arm iohexoL (Omnipaque) (350 mg/mL) solution 0-200 mL 0-200 mL, Intravenous, ONCE PRN, 1 dose, Starting on [place] 10/24/24 at 2317, Until [place] 09/16/24 at 2318, Per Protocol, Warning Vesicant/Irritant Medication , Radiology Contrast, Routine Given 09/16/2024 11:18 PM EDT 65 mLs iohexoL (Omnipaque) (350 mg/mL) solution 0-200 mL 0-200 mL, Intravenous, ONCE PRN, 1 dose, Starting on Fri09/28/24 at 1246, Until Fri10/12/24 at 1555, Per Protocol, Warning Vesicant/Irritant Medication , Radiology Contrast, Routine iohexoL (Omnipaque) (350 mg/mL) solution 0-200 mL 0-200 mL, Intravenous, ONCE PRN, 1 dose, Starting on [place] 09/26/24 at 1338, Until [place] 09/26/24 at 1338, Per Protocol, Warning Vesicant/Irritant Medication , Radiology Contrast, Routine Given 09/26/2024 1:38 PM EST 120 mLs iohexoL (Omnipaque) (350 mg/mL) solution 0-200 mL 0-200 mL, Intravenous, ONCE PRN, 1 dose, Starting on Tu09/28/24 at 1246, Until Fri10/04/24 at 1301, Per Protocol, Warning Vesicant/Irritant Medication , Radiology Contrast, Routine Given 10/04/2024 1:01 PM EST 33 mLs iohexoL (Omnipaque) (350 mg/mL) solution 0-50 mL 0-50 mL, Oral, ONCE, 1 dose, On [place] 09/26/24 at 1430, Warning Vesicant/Irritant Medication , Radiology Contrast, Routine Given 09/26/2024 2:30 PM EST 5 0 mLs iohexoL (Omnipaque) radiology oral prep (50 mL of oral contrast) 240 mL, Oral, ONCE, 1 dose, On [place] 09/26/24 at 1045, Administer 8 ounce cup (240 ml) of diluted contrast mixture 3 hours before scan, as tolerated. *Take a 1 liter (1,000 mL) bottle of water or non-carbonated beverage, pour out 50 mL. *Open 1 bottle (50 mL) of Omnipaque 350 and pour into bottle of water or non-carbonated beverage. *Close cover and shake vigorously. Refrigerate if desired. *1 liter (1,000 mL) bottle of water or non-carbonated beverage mixed with 1 bottle (to mL) of Omnipaque 350 is now referred to as DILUTED CONTRAST MIXTURE, see above for administration instructions. *The patient should not eat food or drink any other liquids during the entire period in which they are drinking the contrast., Routine Given 09/26/2024 10:04 AM EST 240 mLs iohexoL (Omnipaque) radiology oral prep (50 mL of oral contrast) 240 mL, Oral, ONCE, 1 dose, On 09/26/24 at 1145, Administer 8 ounce cup (240 ml) of diluted contrast mixture 2 hours before scan, as tolerated. *Take a 1 liter (1,000 mL) bottle of water or non-carbonated beverage, pour out 50 mL. *Open 1 bottle (50 mL) of Omnipaque 350 and pour into bottle of water or non-carbonated beverage. *Close cover and shake vigorously. Refrigerate if desired. *1 liter (1,000 mL) bottle of water or non-carbonated beverage mixed with 1 bottle (to mL) of Omnipaque 350 is now referred to as DILUTED CONTRAST MIXTURE, see above for administration instructions. *The patient should not eat food or drink any other liquids during the entire period in which they are drinking the contrast., Routine Given 09/26/2024 11:45 AM EST 240 mLs iohexoL (Omnipaque) radiology oral prep (50 mL of oral contrast) 240 mL, Oral, ONCE, 1 dose, On 09/26/24 at 1245, Administer 8 ounce cup (240 ml) of diluted contrast mixture 1 hour before scan, as tolerated. *Take a 1 liter (1,000 mL) bottle of water or non-carbonated beverage, pour out 50 mL. *Open 1 bottle (50 mL) of Omnipaque 350 and pour into bottle of water or non-carbonated beverage. *Close cover and shake vigorously. Refrigerate if desired. *1 liter (1,000 mL) bottle of water or non-carbonated beverage mixed with 1 bottle (to mL) of Omnipaque 350 is now referred to as DILUTED CONTRAST MIXTURE, see above for administration instructions. *The patient should not eat food or drink any other liquids during the entire period in which they are drinking the contrast. , Routine Given 09/26/2024 12:45 PM EST 240 mLs iohexoL (Omnipaque) radiology oral prep (50 mL of oral contrast) 240 mL, Oral, ONCE, 1 dose, On 09/26/24 at 1330, Administer 8 ounce cup (240 ml) of diluted contrast mixture 20 mins before scan, as tolerated. *Take a 1 liter (1,000 mL) bottle of water or non-carbonated beverage, pour out 50 mL. *Open 1 bottle (50 mL) of Omnipaque 350 and pour into bottle of water or non-carbonated beverage. *Close cover and shake vigorously. Refrigerate if desired. *1 liter (1,000 mL) bottle of water or non-carbonated beverage mixed with 1 bottle (to mL) of Omnipaque 350 is now referred to as DILUTED CONTRAST MIXTURE, see above for administration instructions. *The patient should not eat food or drink any other liquids during the entire period in which they are drinking the contrast., Routine Given 09/26/2024 1:30 PM EST 240 mLs ipratropium-albuteroL (Duoneb) 0.5 mg-3 mg(2.5 mg base)/3 mL nebulizer solution 3 mL 3 mL, Nebulization, EVERY 4 HOURS, First dose on Fri09/21/24 at 1230, Until Discontinued, Routine Given 10/12/2024 12:18 PM EST 3 mLs Given 10/12/2024 8:12 AM EST 3 mLs Given 10/11/2024 11:54 PM EST 3 mLs ipratropium-albuteroL (Duoneb) 0.5 mg-3 mg(2.5 mg base)/3 mL nebulizer solution 1 dose, Starting on Fri09/21/24 at 1209, Until Fri09/21/24 at 1230, Aparna Love: cabinet override labetaloL (Normodyne) (5 mg/mL) injection solution 10-20 mg 10-20 mg, Intravenous, Administer over 2 Minutes, EVERY 15 MIN PRN, Starting on [place] 09/16/24 at 2205, Until Fri09/19/24 at 0333, High Blood Pressure, - Administer for systolic blood pressure (SBP) greater than 140 mmHg. - Administer 10 mg over 2 minutes. May repeat every 15 minutes if SBP remains above goal. - If inadequate effect with 10 mg dose then increase dose to 20 mg for subsequent dosing every 15 minutes. - Dose not to exceed 300 mg per day. Hold if pulse is less than 50 beats per minute. If labetaloL does not satisfactorily control BP within 30 minutes, consider enalaprilat or niCARdipine., Routine Given 09/18/2024 3:3 1 PM EDT 20 mg Given 09/18/2024 2:45 PM EDT 10 mg Given 09/18/2024 9:40 AM EDT 20 mg labetaloL (Normodyne) (5 mg/mL) injection solution 10-20 mg 10-20 mg, Intravenous, EVERY 2 HOURS PRN, Starting on Fri09/20/24 at 0932, Until Fri09/26/24 at 0914, High Blood Pressure, Administer for systolic BP greater than or equal to 160mHg . Administer 10 mg over 2 minutes. May repeat every 15 minutes if SBP remains above goal. If inadequate effect with 10 mg dose then increase to 20 mg per dose for subsequent dosing every 15 minutes. Do not exceed 300 mg per 24 hours. Hold if pulse less than 50 beats per minute. If goal BP is not achieved after 3 consecutive doses of labetaloL, call Director Project Management. May be given with niCARdipine and enalaprilat. , Routine Given 09/21/2024 12:32 AM EDT 10 mg labetaloL (Normodyne) (5 mg/mL) injection solution 20 mg 20 mg, Intravenous, EVERY 4 HOURS PRN, Starting on Fri09/26/24 at 1820, Until Fri10/12/24 at 1555, High Blood Pressure, < 160 mm Hg, Routine Given 09/27/2024 2:00 AM EST 20 mg Given 09/26/2024 6:24 PM EST 20 mg lidocaine (Xylocaine) 1% (10 mg/mL) injection 100 mg 100 mg (10 mL), Subcutaneous, ONCE, 1 dose, On Fri10/04/24 at 0915, Routine Given 10/04/2024 10:21 AM EST 100 mg lidocaine (Xylocaine) 1% (10 mg/mL) injection 30 mg 30 mg (3 mL), Subcutaneous, ONCE, 1 dose, On 09/21/24 at 1330, To be administered by provider for drain removal, Routine Given 09/21/2024 1:36 PM EDT 30 mg magnesium sulfate 1 g in dextrose 5% 100 mL infusion 1 g, Intravenous, ONCE, 1 dose, On [place] 10/07/24 at 1600, Administer over 60 Minutes New Bag 10/07/2024 4:13 PM EST 1 g 100 mL/hr magnesium sulfate 2 g in sterile water 50 mL infusion 2 g, Intravenous, EVERY 2 HOURS, 2 doses, First dose on Fri09/17/24 at 0200, Last dose on Fri09/17/24 at 0400, Administer over 120 Minutes Rate/Dose Verify 09/17/2024 3:36 AM EDT 25 mL/hr New Bag 09/17/2024 3:11 AM EDT 2 g 25 mL/hr Rate/Dose Verify 09/17/2024 1:58 AM EDT 25 mL/h r magnesium sulfate 2 g in sterile water 50 mL infusion 2 g, Intravenous, ONCE, 1 dose, On Fri09/19/24 at 0215, Administer over 120 Minutes, Minimum infusion duration is 2 hours. Rate/Dose Verify 09/19/2024 4:00 AM EDT 25 mL/hr New Bag 09/19/2024 2:39 AM EDT 2 g 25 mL/hr magnesium sulfate 2 g in sterile water 50 mL infusion 2 g, Intravenous, ONCE, 1 dose, On Fri09/23/24 at 0515, Administer over 120 Minutes Rate/Dose Verify 09/23/2024 6:00 AM EDT 25 mL/hr New Bag 09/23/2024 5:01 AM EDT 2 g 25 mL/hr magnesium sulfate 2 g in sterile water 50 mL infusion 2 g, Intravenous, ONCE, 1 dose, On Fri09/24/24 at 0615, Administer over 120 Minutes Rate/Dose Verify 09/24/2024 8:00 AM EDT 25 mL/hr New Bag 09/24/2024 6:23 AM EDT 2 g 25 mL/hr magnesium sulfate 2 g in sterile water 50 mL infusion 2 g, Intravenous, EVERY 2 HOURS, 2 doses, First dose on Fri09/26/24 at 0230, Last dose on Fri09/26/24 at 0430, Administer over 120 Minutes Rate/Dose Verify 09/26/2024 6:00 AM EST 25 mL/hr New Bag 09/26/2024 5:11 AM EST 2 g 25 mL/hr Rate/Dose Verify 09/26/2024 4:00 AM EST 25 mL/h r mannitoL (Osmitrol) 20 % infusion 90 g 90 g, Intravenous, ONCE, 1 dose, On Fri09/16/24 at 2245, Warning Vesicant/Irritant Medication Use in-line filter New Bag 09/16/2024 5:00 PM EDT 90 g methylPREDNISolone sod succ (pf) (SOLU-Medrol) (125 mg/2 mL) injection 250 mg 250 mg, Intravenous, ONCE, 1 dose, On Fri09/30/24 at 0215 Given 09/30/2024 1:52 AM EST 250 mg multivitamin with minerals (Thera M) tablet 1 tablet 1 tablet, Per NG tube, DAILY, First dose on Fri09/17/24 at 0930, Until Discontinued, Routine Given 10/04/2024 8:27 AM EST 1 tablet Given 10/03/2024 8:18 AM EST 1 tablet Given 10/02/2024 8:31 AM EST 1 tablet multivitamin with minerals (Thera M) tablet 1 tablet 1 tablet, Per G Tube, DAILY, First dose (after last modification) on Fri10/05/24 at 0900, Until Discontinued, Routine Given 10/11/2024 9:03 AM EST 1 table t Given 10/10/2024 8:09 AM EST 1 tablet Given 10/09/2024 8:09 AM EST 1 tablet multivitamin with minerals (Thera M) tablet 1 tablet 1 tablet, Oral, DAILY, First dose (after last modification) on Fri10/12/24 at 0900, Until Discontinued, Routine Given 10/12/2024 8:11 AM EST 1 tablet niCARdipine (Cardene) (0.2 mg/mL) in sodium chloride 200 mL infusion 0-15 mg/hr (0-75 mL/hr), Intravenous, CONTINUOUS, Starting on Fri09/16/24 at 2230, Until Fri09/17/24 at 0247, Titrate to a systolic blood pressure (SBP) less than 140 mmHg. Start at 5 mg/hr. Increase/decrease by 2.5 mg/hr every 5 minutes until goal reached. Do not exceed 15 mg/hr. Rotate IV site every 12 hours., Routine Rate/Dose Change 09/17/2024 1:42 AM EDT 2.5 mg/hr 12.5 mL/hr Rate/Dose Change 09/17/2024 1:30 AM EDT 5 mg/hr 25 mL/h r Rate/Dose Change 09/17/2024 1:24 AM EDT 7.5 mg/hr 37.5 mL /hr niCARdipine (Cardene) (0.2 mg/mL) in sodium chloride 200 mL infusion 0-15 mg/hr (0-75 mL/hr), Intravenous, CONTINUOUS, Starting on Fri09/17/24 at 0915, Until Fri09/19/24 at 1009, Titrate to keep SBP 90 -140. Start at 5 mg/hr. Increase/decrease by 2.5 mg/hr every 5 minutes until goal reached. Do not exceed 15 mg/hr. Rotate IV site every 12 hours., Routine Rate/Dose Change 09/19/2024 9:18 AM EDT 10 mg/hr 50 mL/hr Rate/Dose Change 09/19/2024 9:00 AM EDT 7.5 mg/hr 37.5 mL /hr Rate/Dose Change 09/19/2024 7:30 AM EDT 5 mg/hr 25 mL/h r NORepinephrine (Levophed) (16 mcg/mL) in dextrose 5% 250 mL infusion 0-100 mcg/min (0-375 mL/hr), Intravenous, CONTINUOUS PRN, Starting on Fri09/17/24 at 1415, Until 09/18/24 at 1109, hypotension, Titrate to keep MAP greater than 65 mmHg. Start at 2 mcg/min. Increase/decrease by 2 mcg/min every 3 minutes until goal reached. Do not exceed 200 mcg/min. Warning Vesicant/Irritant Medication, Routine Rate/Dose Change 09/17/2024 2:41 PM EDT 8 mcg/min 30 mL/hr Rate/Dose Change 09/17/2024 2:25 PM EDT 8 mcg/min 30 mL/h r Rate/Dose Change 09/17/2024 2:00 PM EDT 10 mcg/min 37.5 mL /hr NORepinephrine (Levophed) 4 mg/250 mL (16 mcg/mL) infusion 1 dose, Starting on Fri09/17/24 at 1339, Until Fri09/17/24 at 1340, Favio Ye: cabinet override ondansetron (pf) (Zofran) (2 mg/mL) injection 4 mg 4 mg, Intravenous, EVERY 8 HOURS PRN, Starting on Fri09/28/24 at 1835, Until Fri10/12/24 at 1555, Nausea Given 10/07/2024 3:08 PM EST 4 mg Given 09/30/2024 6:21 PM EST 4 mg Given 09/28/2024 6:40 PM EST 4 mg ondansetron (Zofran) 4 mg/2 mL injection 1 dose, Starting on Fri09/16/24 at 1604, Until Fri09/16/24 at 1609, Sacha Knight: cabinet override Given 09/16/2024 4:09 PM EDT 4 mg pantoprazole (Protonix) injection 40 mg 40 mg, Intravenous, DAILY, First dose on Fri09/29/24 at 1115, Until Discontinued, Reconstitute with 10 mL of normal saline to a concentration of 4 mg/mL and inject slowly over 2 minutes. Given 10/12/2024 9:04 AM EST 40 mg Given 10/11/2024 9:03 AM EST 40 mg Given 10/10/2024 8:09 AM EST 40 mg perflutren lipid microspheres (Definity) injection 0.5 mL 0.5 mL, Intravenous, ONCE PRN, 1 dose, Starting on Fri09/17/24 at 0818, Until Fri09/17/24 at 0800, Other, Routine Given 09/17/2024 8:00 AM EDT 0.5 mLs PHENYLephrine (Delvis-Synephrine) (80 mcg/mL) in sodium chloride 0.9% 250 mL infusion 0-180 mcg/min (0-135 mL/hr), Intravenous, CONTINUOUS, Starting on Fri09/21/24 at 1330, Until Fri09/21/24 at 1847, Titrate to keep MAP greater than 65 mmHg. Start at 50 mcg/min. Increase/decrease by 25 mcg/min every 10 minutes until goal reached. Do not exceed 180 mcg/min. Warning Vesicant/Irritant Medication Per the Vasopressor Administration Policy, [place] 2657: A central line must be placed for the administration of vasopressor infusions lasting longer than 8 hours. Warning Vesicant/Irritant Medication New Bag 09/21/2024 12:35 PM EDT 50 mcg/min 37.5 mL/hr PHENYLephrine (Delvis-Synephrine) (80 mcg/mL) in sodium chloride 0.9% 250 mL infusion 0-180 mcg/min (0-135 mL/hr), Intravenous, CONTINUOUS, Starting on Fri09/26/24 at 0030, Until Fri09/28/24 at 0702, Titrate to keep MAP greater than 65 mmHg. Start at 50 mcg/min. Increase/decrease by 25 mcg/min every 10 minutes until goal reached. Do not exceed 180 mcg/min. Warning Vesicant/Irritant Medication Per the Vasopressor Administration Policy, [place] 265[place]: A central line must be placed for the administration of vasopressor infusions lasting longer than 8 hours. Warning Vesicant/Irritant Medication Rate/Dose Verify 09/26/2024 5:00 AM EST 25 mcg/min 18.8 mL/hr Rate/Dose Verify 09/26/2024 4:00 AM EST 25 mcg/min 18.8 mL /hr Rate/Dose Verify 09/26/2024 3:00 AM EST 25 mcg/min 18.8 mL /hr PHENYLephrine (Delvis-Synephrine) 20 mg/250 mL (80 mcg/mL) infusion 1 dose, Starting on Fri09/21/24 at 1209, Until Fri09/21/24 at 1235, Aparna Love: cabinet override Per the Vasopressor Administration Policy, [place] 265[place]: A central line must be placed for the administration of vasopressor infusions lasting longer than 8 hours. Warning Vesicant/Irritant Medication piperacillin-tazobactam (Zosyn) 3.375 g vial attach to sodium chloride 0.9% 50 mL Mini-Bag Plus 3.375 g, Intravenous, EVERY 8 HOURS, 15 doses, First dose on Fri09/24/24 at 1030, Last dose on Fri09/29/24 at 0230, Administer over 4 Hours, Warning Vesicant/Irritant Medication Per armature winder repair helper labeling, do not administer or Y-site with lactated ringers., Indication for (Active or Suspected): Pneumonia ([facility]) New Bag 09/29/2024 1:35 AM EST 3.375 g 12.5 mL/hr New Bag 09/28/2024 5:39 PM EST 3.375 g 12.5 mL/hr New Bag 09/28/2024 10:22 AM EST 3.375 g 12.5 mL/hr piperacillin-tazobactam (Zosyn) 3.375 g vial attach to sodium chloride 0.9% 50 mL Mini-Bag Plus 3.375 g, Intravenous, EVERY 8 HOURS, 6 doses, First dose (after last reorder) on Fri09/29/24 at 1200, Last dose on Fri10/01/24 at 0400, Administer over 4 Hours, Warning Vesicant/Irritant Medication Per armature winder repair helper labeling, do not administer or Y-site with lactated ringers., Indication for (Active or Suspected): Pneumonia ([facility]) New Bag 09/29/2024 12:11 PM EST 3.375 g 12.5 mL/hr piperacillin-tazobactam (Zosyn) 3.375 g vial attach to sodium chloride 0.9% 50 mL Mini-Bag Plus 3.375 g, Intravenous, EVERY 8 HOURS, 4 doses, First dose (after last modification) on Fri09/29/24 at 2000, Last dose on Fri09/30/24 at 2000, Administer over 4 Hours, Warning Vesicant/Irritant Medication Per armature winder repair helper labeling, do not administer or Y-site with lactated ringers., Indication for (Active or Suspected): Pneumonia ([facility]) New Bag 09/30/2024 8:36 PM EST 3.375 g 12.5 mL/hr New Bag 09/30/2024 11:49 AM EST 3.375 g 12.5 mL/hr New Bag 09/30/2024 3:59 AM EST 3.375 g 12.5 mL/hr polyethylene glycoL (Miralax) packet 17 g 17 g, Oral, DAILY, First dose on Fri09/17/24 at 0900, Until Discontinued, Routine Given 09/23/2024 9:28 AM EDT 17 g Given 09/22/2024 9:37 AM EDT 17 g Given 09/21/2024 8:13 AM EDT 17 g polyethylene glycoL (Miralax) packet 17 g 17 g, Oral, DAILY PRN, Starting on Fri10/11/24 at 1507, Until Fri10/12/24 at 1555, Constipation, Routine potassium chloride 20 mEq in sterile water 100 mL infusion 20 mEq, Intravenous, EVERY 1 HOUR PRN, Starting on Fri09/23/24 at 0511, Until Fri09/23/24 at 1111, Administer over 60 Minutes, hypokalemia, Administer 3 doses for a serum potassium (mMol/L) of 2.8 - 3.2 potassium chloride 20 meq/100 mL bags must be infused through a CENTRAL LINE New Bag 09/23/2024 5:33 AM EDT 20 mEq 100 mL/hr potassium chloride 20 mEq in sterile water 100 mL infusion 20 mEq, Intravenous, EVERY 1 HOUR PRN, Starting on Fri09/26/24 at 0743, Until Fri09/28/24 at 0703, Administer over 60 Minutes, hypokalemia, Administer 2 doses for a serum potassium (mMol/L) of 3.3 - 3.8 potassium chloride 20 meq/100 mL bags must be infused through a CENTRAL LINE New Bag 09/26/2024 9:17 AM EST 20 mEq 100 mL/hr New Bag 09/26/2024 7:58 AM EST 20 mEq 100 mL/hr potassium chloride 20 mEq in sterile water 100 mL infusion 20 mEq, Intravenous, EVERY 1 HOUR PRN, Starting on Fri09/26/24 at 0743, Until Fri09/28/24 at 0703, Administer over 60 Minutes, hypokalemia, Administer 1 dose for a serum potassium (mMol/L) of 3.9 - 4 potassium chloride 20 meq/100 mL bags must be infused through a CENTRAL LINE New Bag 09/28/2024 6:31 AM EST 20 mEq 100 mL/hr potassium chloride ER (Klor-Con M) crystal tablet 20 mEq 20 mEq, Oral, EVERY 4 HOURS PRN, Starting on Ashley 09/23/24 at 1110, Until Fri10/04/24 at 1540, hypokalemia, Administer for serum potassium (mMol/L) of 3.9 - 4 potassium chloride ER particle/crystal tablets (Klor-Con M) may be broken in half and each half swallowed separately. Tablets can be dissolved in ~4 ounces of water; allow ~2 minutes to dissolve, stir well and drink immediately. Do not crush, chew, or suck on tablet., Routine Given 09/23/2024 11:24 AM EDT 20 mEq potassium chloride ER (Klor-Con M) crystal tablet 20 mEq 20 mEq, Per G Tube, EVERY 4 HOURS PRN, Starting on Fri10/04/24 at 1539, Until Fri10/11/24 at 1507, hypokalemia, Administer for serum potassium (mMol/L) of 3.9 - 4 potassium chloride ER particle/crystal tablets (Klor-Con M) may be broken in half and each half swallowed separately. Tablets can be dissolved in ~4 ounces of water; allow ~2 minutes to dissolve, stir well and drink immediately. Do not crush, chew, or suck on tablet., Routine Given 10/07/2024 4:24 AM EST 20 mEq potassium chloride ER (Klor-Con M) crystal tablet 20 mEq 20 mEq, Oral, EVERY 4 HOURS PRN, Starting on Fri10/11/24 at 1507, Until 10/12/24 at 1555, hypokalemia, Administer for serum potassium (mMol/L) of 3.9 - 4 potassium chloride ER particle/crystal tablets (Klor-Con M) may be broken in half and each half swallowed separately. Tablets can be dissolved in ~4 ounces of water; allow ~2 minutes to dissolve, stir well and drink immediately. Do not crush, chew, or suck on tablet., Routine potassium chloride ER (Klor-Con M) crystal tablet 40 mEq 40 mEq, Oral, EVERY 4 HOURS PRN, Starting on 09/18/24 at 0216, Until 09/19/24 at 0333, hypokalemia, Administer for serum potassium (mMol/L) of 3.6 - 3.8 potassium chloride ER particle/crystal tablets (Klor-Con M) may be broken in half and each half swallowed separately. Tablets can be dissolved in ~4 ounces of water; allow ~2 minutes to dissolve, stir well and drink immediately. Do not crush, chew, or suck on tablet., Routine Given 09/18/2024 2:24 AM EDT 40 mEq potassium chloride ER (Klor-Con M) crystal tablet 40 mEq 40 mEq, Oral, EVERY 4 HOURS PRN, Starting on Ashley 09/23/24 at 1110, Until Fri10/04/24 at 1540, hypokalemia, Administer for serum potassium (mMol/L) of 3.6 - 3.8 potassium chloride ER particle/crystal tablets (Klor-Con M) may be broken in half and each half swallowed separately. Tablets can be dissolved in ~4 ounces of water; allow ~2 minutes to dissolve, stir well and drink immediately. Do not crush, chew, or suck on tablet., Routine Given 09/27/2024 8:53 AM EST 40 mEq potassium chloride ER (Klor-Con M) crystal tablet 40 mEq 40 mEq, Oral, ONCE, 1 dose, On Fri10/01/24 at 0845, potassium chloride ER particle/crystal tablets (Klor-Con M) may be broken in half and each half swallowed separately. Tablets can be dissolved in ~4 ounces of water; allow ~2 minutes to dissolve, stir well and drink immediately. Do not crush, chew, or suck on tablet., Routine Given 10/01/2024 9:27 AM EST 40 mEq potassium chloride ER (Klor-Con M) crystal tablet 40 mEq 40 mEq, Oral, EVERY 4 HOURS PRN, Starting on Fri10/11/24 at 1507, Until Fri10/12/24 at 1555, hypokalemia, Administer for serum potassium (mMol/L) of 3.6 - 3.8 potassium chloride ER particle/crystal tablets (Klor-Con M) may be broken in half and each half swallowed separately. Tablets can be dissolved in ~4 ounces of water; allow ~2 minutes to dissolve, stir well and drink immediately. Do not crush, chew, or suck on tablet., Routine potassium phosphate 10 mMol in sodium chloride 0.9% 100 mL infusion 10 mmol, Intravenous, ONCE, 1 dose, On 09/18/24 at 0200, Administer over 4 Hours, Administer over 4-6 hours New Bag 09/18/2024 2:34 AM EDT 10 mmol 25 mL /hr potassium phosphate 15 mMol in sodium chloride 0.9% 250 mL infusion 15 mmol, Intravenous, EVERY 4 HOURS, 2 doses, First dose on 09/19/24 at 0245, Last dose on 09/19/24 at 0645, Administer over 4 Hours, *10 mMol potassium phosphate contains 14.7 mEq potassium *15 mMol potassium phosphate contains 22 mEq potassium New Bag 09/19/2024 7:34 AM EDT 15 mmol 62.5 mL/hr New Bag 09/19/2024 3:28 AM EDT 15 mmol 62.5 mL/hr propofoL (Diprivan) (10 mg/mL) bolus from infusion 10 mg 10 mg, Intravenous, EVERY 10 MIN PRN, Starting on Ashley 09/16/24 at 2205, Until 09/18/24 at 1352, SAT resedation, Administer bolus dose of propofoL of 10 mg. PropofoL bolus may be repeated for an additional 10 mg. Wait 5 to 10 minutes to see onset effect from 1st bolus. Do not administer more than 20 mg in a 4 hour period., Routine Bolus from Infusion 09/17/2024 7:14 AM EDT 10 mg propofoL (Diprivan) (10 mg/mL) infusion 0-50 mcg/kg/min ? 62.7 kg Adjusted weight (0-18.81 mL/hr, rounded to 0-18.8 mL/hr), Intravenous, CONTINUOUS, Starting on Ashley 09/16/24 at 2230, Until 09/18/24 at 1352, Titrate to sedation level of RASS Goal (-)1 to 0 . Start at 20 mcg/kg/min. Increase/decrease 10 mcg/kg/min every 3 minutes until goal reached. Once stable, reassess patient every 30 minutes. Do not exceed 50 mcg/kg/minute. Change rate only after assessing and documenting RASS. Reassess sedation scores within 30 minutes after every rate change. If under sedated, increase rate by 10 mcg/kg/min. If over sedated, hold sedative until target RASS (-)1 to 0 achieved and then restart at 50% of previous rate. Call household cook if goal not achieved at maximum rate. If SAT is ordered and if patient meets criteria for Spontaneous Awakening Trial, titrate per protocol., Routine Rate/Dose Change 09/17/2024 2:32 PM EDT 20 mcg/kg/min 7.5 mL/hr Rate/Dose Change 09/17/2024 2:20 PM EDT 30 mcg/kg/min 11.3 mL/hr Rate/Dose Change 09/17/2024 2:00 PM EDT 40 mcg/kg/min 15 m L/hr propofoL (Diprivan) (10 mg/mL) infusion 0-50 mcg/kg/min ? 63.8 kg Adjusted weight (0-19.14 mL/hr, rounded to 0-19.1 mL/hr), Intravenous, CONTINUOUS, Starting on Fri09/21/24 at 1330, Until Fri09/21/24 at 1910, Titrate to sedation level of RASS Goal (-)1 to 0 . Start at 20 mcg/kg/min. Increase/decrease 10 mcg/kg/min every 3 minutes until goal reached. Once stable, reassess patient every 30 minutes. Do not exceed 50 mcg/kg/minute. Change rate only after assessing and documenting RASS. Reassess sedation scores within 30 minutes after every rate change. If under sedated, increase rate by 10 mcg/kg/min. If over sedated, hold sedative until target RASS (-)1 to 0 achieved and then restart at 50% of previous rate. Call household cook if goal not achieved at maximum rate. If SAT is ordered and if patient meets criteria for Spontaneous Awakening Trial, titrate per protocol., Routine Rate/Dose Change 09/21/2024 5:25 PM EDT 10 mcg/kg/min 3.8 mL/hr Rate/Dose Change 09/21/2024 4:01 PM EDT 20 mcg/kg/min 7.7 mL/hr Rate/Dose Verify 09/21/2024 4:00 PM EDT 30 mcg/kg/min 11.5 mL/hr propofoL (Diprivan) 10 mg/mL infusion 1 dose, Starting on Fri09/21/24 at 1209, Until Fri09/21/24 at 1251, Aparna Love: cabinet override protamine (10 mg/mL) injection 20 mg 20 mg, Intravenous, ONCE, 1 dose, On Ashley 09/16/24 at 1630, For IV use only. Administer slow IV push (50 mg over 10 minutes). Rapid IV infusion causes hypotension. Maximum of 50 mg in any 10-minute period., STAT Given 09/16/2024 4:15 PM EDT 20 mg protamine 10 mg/mL injection 1 dose, Starting on Fri09/16/24 at 1607, Until Fri09/16/24 at 1615, Sacha Knight: cabinet override protein powder 2 Scoop, Per NG tube, 3 TIMES DAILY, 14 doses, First dose on Fri09/29/24 at 1645, Last dose on Fri10/03/24 at 2100, Routine Given 10/03/2024 9:00 P M EST 2 Scoops Given 10/03/2024 3:00 PM EST 2 Scoops Given 10/03/2024 9:00 AM EST 2 Scoops protein powder 2 Scoop, Per G Tube, 3 TIMES DAILY, First dose on Fri10/04/24 at 1645, Until Discontinued, Routine Given 10/05/2024 9:00 AM EST 2 Scoops Given 10/04/2024 9:00 PM EST 2 Scoops Given 10/04/2024 4:45 PM EST 2 Scoops protein powder 2 Scoop, Per G Tube, 3 TIMES DAILY, First dose on Fri10/05/24 at 1545, Until Discontinued, Routine Given 10/07/2024 9:00 AM EST 2 Scoops Given 10/06/2024 9:00 PM EST 2 Scoops Given 10/06/2024 3:00 PM EST 2 Scoops protein powder 2 Scoop, Per G Tube, 3 TIMES DAILY, First dose on Fri10/07/24 at 1500, Until Discontinued, Routine Given 10/12/2024 9:00 AM EST 2 Scoops Given 10/11/2024 8:39 PM EST 2 Scoops Given 10/11/2024 3:00 PM EST 2 Scoops racepinephrine (Vaponefrin) 2.25 % nebulizer solution 0.5 mL 0.5 mL, Nebulization, ONCE, 1 dose, On Fri09/30/24 at 0130, Notify Respiratory Care for Medication Administration. Mix with 2.5 mL 0.9% Normal Saline, Routine Given 09/30/2024 1:15 AM EST 0.5 mLs racepinephrine (Vaponefrin) 2.25 % nebulizer solution 1 dose, Starting on Fri09/30/24 at 0107, Until Fri09/30/24 at 0115, Daniel Griffith (RT): cabinet override sennosides (Senokot) (1.76 mg/mL) oral liquid 17.6 mg 17.6 mg, Per NG tube, 2 TIMES DAILY, First dose on Fri09/16/24 at 2300, Until Discontinued, May give PO or Per Tube. Hold for loose stool., Routine Given 09/25/2024 9:41 PM EDT 17.6 mg Given 09/24/2024 9:42 PM EDT 17.6 mg Given 09/23/2024 8:14 PM EDT 17.6 mg sennosides (Senokot) (1.76 mg/mL) oral liquid 17.6 mg 17.6 mg, Oral, 2 TIMES DAILY PRN, Starting on Fri10/11/24 at 1506, Until Fri10/12/24 at 1555, Constipation, May give PO or Per Tube. Hold for loose stool., Routine sodium chloride (4 mEq/mL) 23.4% injection 120 mEq 120 mEq (30 mL), Intravenous, Administer over 10 Minutes, ONCE, 1 dose, On Fri09/16/24 at 2230, HIGH CONCENTRATION - NOTE VOLUME CENTRAL LINE ADMINISTRATION ONLY Must be administered by one of the following individuals: PULLMAN CLERK, PA, or attending., Routine Given 09/16/2024 5:00 PM EDT 120 mEq sodium chloride (NebuSal) 3 % nebulizer solution 4 mL 4 mL, Nebulization, EVERY 6 HOURS PRN, Starting on Fri09/24/24 at 1413, Until Fri10/12/24 at 1555, Cough, Routine Given 09/29/2024 11:30 AM EST 4 mLs Given 09/28/2024 6:31 AM EST 4 mLs Given 09/26/2024 11:48 AM EST 4 mLs sodium chloride 0.9% 1,000 mL IV bolus at 500 mL/hr, Intravenous, ONCE, 1 dose, On Fri09/28/24 at 1900 New Bag 09/28/2024 6:40 PM EST 50 0 mL/hr sodium chloride 0.9% 250 mL IV bolus Intravenous, ONCE, 1 dose, On Fri10/07/24 at 1600 New Bag 10/07/2024 4:18 PM EST 250 mL/hr sodium chloride 0.9% 350 mL IV bolus Intravenous, ONCE, 1 dose, On Fri09/17/24 at 1445, Given intraprocedure New Bag 09/17/2024 2:45 PM EDT sodium chloride 0.9% 500 mL IV bolus at 500 mL/hr, Intravenous, ONCE, 1 dose, On Fri09/22/24 at 0230 New 09/22/2024 2:15 AM EDT 5 00 mL/hr sodium chloride 0.9% 500 mL IV bolus Intravenous, ONCE, 1 dose, On Fri09/24/24 at 0845 New 09/24/2024 8:45 AM EDT sodium chloride 0.9% 500 mL IV bolus Intravenous, ONCE, 1 dose, On Fri09/24/24 at 1430 New Bag 09/24/2024 2:34 PM EDT sodium chloride 0.9% 500 mL IV bolus Intravenous, ONCE, 1 dose, On 09/25/24 at 2330 [facility] 09/25/2024 11:11 PM EDT sodium chloride 0.9% 500 mL IV bolus Intravenous, ONCE, 1 dose, On 09/26/24 at 0145 [facility] Bag 09/26/2024 1:22 AM EDT sodium chloride 0.9% infusion 75 mL/hr, Intravenous, CONTINUOUS, Starting on Ashley 09/16/24 at 1600, Until Ashley 09/16/24 at 1759, Recovery ([facility]Hospital [facility]) [facility] 09/16/2024 3:50 PM EDT 75 mL/h r 75 mL/hr sodium chloride 0.9% infusion 75 mL/hr, Intravenous, CONTINUOUS, Starting on Ashley 09/16/24 at 2300, Until Fri09/17/24 at 0901 New 09/17/2024 6:45 AM EDT 75 mL/hr 75 m L/hr Rate/Dose Verify 09/17/2024 5:57 AM EDT 75 mL/hr 75 mL/h r Rate/Dose Verify 09/17/2024 3:36 AM EDT 75 mL/hr 75 mL/h r sodium chloride 0.9% infusion 100 mL/hr, Intravenous, CONTINUOUS, Starting on Fri09/17/24 at 0930, Until 09/18/24 at 1126 Rate/Dose Verify 09/18/2024 6:17 AM EDT 100 mL/hr 100 mL/hr Rate/Dose Verify 09/18/2024 4:40 AM EDT 100 mL/hr 100 mL/ hr Rate/Dose Verify 09/18/2024 2:38 AM EDT 100 mL/hr 100 mL/ hr sulfamethoxazole-trimethopri m DS (Bactrim DS) 800-160 mg per tablet 1 tablet 1 tablet, Oral, EVERY 12 HOURS SCHEDULED (2 times per day), 8 doses, First dose on Fri10/12/24 at 0900, Last dose on Fri10/15/24 at 2100, Routine, Indication for (Active or Suspected): Urinary Tract/Pyelonephritis Given 10/12/2024 9:04 AM EST 1 tablet traMADoL (Ultram) tablet 25 mg 25 mg, Oral, ONCE, 1 dose, On Fri10/09/24 at 2315, Routine Given 10/09/2024 10:59 PM EST 25 mg traMADoL (Ultram) tablet 50 mg 50 mg, Per G Tube, ONCE, 1 dose, On Fri10/04/24 at 1745, Routine Given 10/04/2024 5:57 PM EST 50 mg traZODone (Desyrel) tablet 25 mg 25 mg, Oral, ONCE, 1 dose, On Fri10/08/24 at 2300, Routine Given 10/08/2024 11:02 PM EST 25 mg traZODone (Desyrel) tablet 50 mg 50 mg, Oral, NIGHTLY, First dose on Fri10/11/24 at 0245, Until Discontinued, Routine Given 10/11/2024 2:37 AM EST 50 mg traZODone (Desyrel) tablet 50 mg 50 mg, Oral, NIGHTLY, First dose (after last modification) on Fri10/11/24 at 2100, Until Discontinued, Routine Given 10/11/2024 8:35 PM EST 50 mg tube feeding diet 1,100 mL, Per OG Tube, at 55 mL/hr, CONTINUOUS, Starting on Fri09/17/24 at 1000, Until Fri09/17/24 at 2059, Administer flushes and check residuals per policy, Which tube feed product? Peptamen Intense VHP, Strength: FULL Strength, Initial Rate: (mL/hr): 15, Advance by: (mL): 10, Advance every: Q6H, Goal final rate: (mL/hr): 55, Do you want to Hold Tube Feed? No Rate/Dose Verify 09/17/2024 8:00 PM EDT 25 mL/hr Rate/Dose Verify 09/17/2024 5:49 PM EDT 25 mL/h r Rate/Dose Change 09/17/2024 5:00 PM EDT 25 mL/h r tube feeding diet 1,100 mL, Per OG Tube, at 55 mL/hr, CONTINUOUS, Starting on 09/17/24 at 2145, Until 09/18/24 at 1126, Administer flushes and check residuals per policy, Which tube feed product? Peptamen Intense VHP, Strength: FULL Strength, Initial Rate: (mL/hr): 15, Advance by: (mL): 10, Advance every: Q6H, Goal final rate: (mL/hr): 55, Do you want to Hold Tube Feed? Yes, What Start date should the Tube Feed be held? 09/18/2024, What time should the Tube Feed be held? 3:00 AM Rate/Dose Verify 09/18/2024 2:38 AM EDT 35 mL/hr Rate/Dose Change 09/17/2024 11:00 PM EDT 35 mL/ hr Rate/Dose Verify 09/17/2024 10:00 PM EDT 25 mL/ hr tube feeding diet 1,100 mL, Per OG Tube, at 55 mL/hr, CONTINUOUS, Starting on 09/18/24 at 1215, Until 09/19/24 at 0959, Administer flushes and check residuals per policy, Which tube feed product? Peptamen Intense VHP, Strength: FULL Strength, Initial Rate: (mL/hr): 15, Advance by: (mL): 10, Advance every: Q6H, Goal final rate: (mL/hr): 55, Do you want to Hold Tube Feed? Yes, What Start date should the Tube Feed be held? 09/19/2024, What time should the Tube Feed be held? 4:00 AM Rate/Dose Verify 09/19/2024 2:00 AM EDT 45 mL/hr Rate/Dose Verify 09/19/2024 12:00 AM EDT 45 mL/ hr Rate/Dose Verify 09/18/2024 7:56 PM EDT 45 mL/h r tube feeding diet 1,100 mL, Per OG Tube, at 55 mL/hr, CONTINUOUS, Starting on 09/19/24 at 1045, Until Fri09/20/24 at 0718, Administer flushes and check residuals per policy, Which tube feed product? Peptamen Intense VHP, Strength: FULL Strength, Initial Rate: (mL/hr): 15, Advance by: (mL): 10, Advance every: Q6H, Goal final rate: (mL/hr): 55, Do you want to Hold Tube Feed? Yes, What Start date should the Tube Feed be held? 09/20/2024, What time should the Tube Feed be held? 4:00 AM Rate/Dose Change 09/19/2024 6:42 PM EDT 55 mL/hr Continued Bag 09/19/2024 10:52 AM EDT 1,100 mLs 45 mL/hr tube feeding diet 1,100 mL, Per OG Tube, at 55 mL/hr, CONTINUOUS, Starting on Fri09/20/24 at 0815, Until Fri09/21/24 at 0205, Administer flushes and check residuals per policy, Which tube feed product? Peptamen Intense VHP, Strength: FULL Strength, Initial Rate: (mL/hr): 15, Advance by: (mL): 10, Advance every: Q6H, Goal final rate: (mL/hr): 55, Do you want to Hold Tube Feed? No Rate/Dose Verify 09/20/2024 6:00 PM EDT 55 mL/hr Rate/Dose Verify 09/20/2024 4:00 PM EDT 55 mL/h r Rate/Dose Verify 09/20/2024 2:00 PM EDT 55 mL/h r tube feeding diet 1,100 mL, Per OG Tube, at 55 mL/hr, CONTINUOUS, Starting on Fri09/21/24 at 0300, Until Fri09/21/24 at 1851, Administer flushes and check residuals per policy, Which tube feed product? Peptamen Intense VHP, Strength: FULL Strength, Initial Rate: (mL/hr): 15, Advance by: (mL): 10, Advance every: Q6H, Goal final rate: (mL/hr): 55, Do you want to Hold Tube Feed? Yes, What Start date should the Tube Feed be held? 09/21/2024, What time should the Tube Feed be held? 4:00 AM Rate/Dose Verify 09/21/2024 6:00 PM EDT 55 mL/hr Restarted 09/21/2024 5:25 PM EDT 55 mL/hr tube feeding diet 1,100 mL, Per OG Tube, at 55 mL/hr, CONTINUOUS, Starting on Fri09/21/24 at 1945, Until Fri09/22/24 at 1758, Administer flushes and check residuals per policy, Which tube feed product? Peptamen Intense VHP, Strength: FULL Strength, Initial Rate: (mL/hr): 15, Advance by: (mL): 10, Advance every: Q6H, Goal final rate: (mL/hr): 55, Do you want to Hold Tube Feed? No Rate/Dose Verify 09/22/2024 4:00 PM EDT 55 mL/hr Rate/Dose Verify 09/22/2024 2:00 PM EDT 55 mL/h r Rate/Dose Verify 09/22/2024 12:00 PM EDT 55 mL/ hr tube feeding diet 1,100 mL, Per OG Tube, at 55 mL/hr, CONTINUOUS, Starting on Fri09/22/24 at 1845, Until Fri09/23/24 at 1204, Administer flushes and check residuals per policy, Which tube feed product? Peptamen Intense VHP, Strength: FULL Strength, Initial Rate: (mL/hr): 15, Advance by: (mL): 10, Advance every: Q6H, Goal final rate: (mL/hr): 55, Do you want to Hold Tube Feed? Yes, What Start date should the Tube Feed be held? 09/23/2024, What time should the Tube Feed be held? 4:00 AM Continued Bag 09/23/2024 11:34 AM EDT 1,100 mLs 55 mL/hr Rate/Dose Verify 09/23/2024 2:16 AM EDT 55 mL/h r Rate/Dose Verify 09/22/2024 11:45 PM EDT 55 mL/ hr tube feeding diet 1,100 mL, Per OG Tube, at 55 mL/hr, CONTINUOUS, Starting on Fri09/23/24 at 1300, Until Fri09/24/24 at 0713, Administer flushes and check residuals per policy, Which tube feed product? Peptamen Intense VHP, Strength: FULL Strength, Initial Rate: (mL/hr): 15, Advance by: (mL): 10, Advance every: Q6H, Goal final rate: (mL/hr): 55, Do you want to Hold Tube Feed? Yes, What Start date should the Tube Feed be held? 09/24/2024, What time should the Tube Feed be held? 4:00 AM Rate/Dose Verify 09/24/2024 2:09 AM EDT 55 mL/hr Rate/Dose Verify 09/23/2024 11:58 PM EDT 55 mL/ hr Rate/Dose Verify 09/23/2024 9:30 PM EDT 55 mL/h r tube feeding diet 1,200 mL, Small Bore, Soft Tip Tube, CONTINUOUS, Starting on 09/24/24 at 0815, Until 09/25/24 at 1421, Administer flushes and check residuals per policy, Which tube feed product? Peptamen AF, Strength: FULL Strength, Initial Rate: (mL/hr): 20, Advance by: (mL): 10, Advance every: Q6H, Goal final rate: (mL/hr): 60, Do you want to Hold Tube Feed? No Rate/Dose Change 09/25/2024 9:01 AM EDT 60 mL /hr Rate/Dose Change 09/25/2024 3:00 AM EDT 50 mL/h r Rate/Dose Verify 09/25/2024 2:00 AM EDT 40 mL/h r tube feeding diet 1,200 mL, Small Bore, Soft Tip Tube, CONTINUOUS, Starting on 09/25/24 at 1515, Until 09/28/24 at 0245, Administer flushes and check residuals per policy, Which tube feed product? Peptamen AF, Strength: FULL Strength, Initial Rate: (mL/hr): 20, Advance by: (mL): 10, Advance every: Q6H, Goal final rate: (mL/hr): 60, Do you want to Hold Tube Feed? Yes, What Start date should the Tube Feed be held? 09/26/2024, What time should the Tube Feed be held? 4:00 AM Rate/Dose Verify 09/28/2024 12:00 AM EST 30 mL/hr New Bag 09/27/2024 11:54 PM EST 1,200 mLs 30 mL/hr Restarted 09/27/2024 6:28 PM EST 20 mL/hr tube feeding diet 1,200 mL, Small Bore, Soft Tip Tube, CONTINUOUS, Starting on Fri09/28/24 at 0345, Until Fri09/28/24 at 1833, Administer flushes and check residuals per policy, Which tube feed product? Peptamen AF, Strength: FULL Strength, Initial Rate: (mL/hr): 20, Advance by: (mL): 10, Advance every: Q6H, Goal final rate: (mL/hr): 60, Do you want to Hold Tube Feed? No Rate/Dose Verify 09/28/2024 3:58 PM EST 50 mL /hr Rate/Dose Change 09/28/2024 12:00 PM EST 50 mL/ hr Rate/Dose Verify 09/28/2024 10:00 AM EST 40 mL/ hr tube feeding diet 960 mL, Per NG tube, CONTINUOUS, Starting on Fri09/29/24 at 1645, Until Fri10/01/24 at 1123, Administer flushes and check residuals per policy, Which tube feed product? Nutren 1.5, Strength: FULL Strength, Initial Rate: (mL/hr): 10, Advance by: (mL): 10, Advance every: Q6H, Goal final rate: (mL/hr): 40 Rate/Dose Verify 10/01/2024 9:23 AM EST 30 mL/hr Rate/Dose Change 10/01/2024 8:00 AM EST 30 mL/h r Rate/Dose Verify 09/30/2024 9:00 PM EST 20 mL/h r tube feeding diet 960 mL, Per NG tube, CONTINUOUS, Starting on Fri10/01/24 at 1215, Until Fri10/02/24 at 1037, Administer flushes and check residuals per policy, Which tube feed product? Nutren 1.5, Strength: FULL Strength, Initial Rate: (mL/hr): 10, Advance by: (mL): 10, Advance every: Q6H, Goal final rate: (mL/hr): 40, Do you want to Hold Tube Feed? Yes, What Start date should the Tube Feed be held? 10/02/2024, What time should the Tube Feed be held? 12:00 AM Rate/Dose Verify 10/01/2024 8:00 PM EST 30 mL/hr Rate/Dose Verify 10/01/2024 2:00 PM EST 30 mL/h r New Bag 10/01/2024 12:15 PM EST 960 mLs 30 mL/hr tube feeding diet 960 mL, Per NG tube, CONTINUOUS, Starting on 10/02/24 at 1130, Until 10/03/24 at 2359, Administer flushes and check residuals per policy, Which tube feed product? Nutren 1.5, Strength: FULL Strength, Initial Rate: (mL/hr): 10, Advance by: (mL): 10, Advance every: Q6H, Goal final rate: (mL/hr): 40, Do you want to Hold Tube Feed? No Rate/Dose Verify 10/03/2024 8:00 PM EST 40 mL/hr New Bag 10/02/2024 11:30 AM EST 960 mLs 40 mL/hr tube feeding diet 960 mL, Per G Tube, at 40 mL/hr, CONTINUOUS, Starting on 10/04/24 at 1645, Until Fri10/05/24 at 1446, Administer flushes and check residuals per policy, Which tube feed product? Nutren 1.5, Goal final rate: (mL/hr): 40 Rate/Dose Verify 10/04/2024 7:31 PM EST 40 mL/hr New Bag 10/04/2024 4:45 PM EST 960 mLs 40 mL/hr documented in this encounter Active and Recently Administered Medications Times are shown in EST. Scheduled Medication Order 10/10/2024 10/11/2024 10/12/2024 amLODIPine (Norvasc) tablet 5 mg (CANCELED) 5 mg, Per G Tube, DAILY, First dose (after last modification) on Fri10/05/24 at 0900, Until Discontinued, Hold if SBP <100mmHg or MAP <65mmHg, Routine 808 (Given - Provider: Luz Bhat RN) 902 (Given - Provider: Latosha Winston RN) amLODIPine (Norvasc) tablet 5 mg 5 mg, Oral, DAILY, First dose (after last modification) on Fri10/12/24 at 0900, Until Discontinued, Hold if SBP <100mmHg or MAP <65mmHg, Routine 0811 (Given - Provider: Lorin Morejon, TRACY) ceFEPime (Maxipime) 1g vial attach to sodium chloride 0.9% 100 mL Mini-Bag Plus (CANCELED) 1 g, Intravenous, EVERY 8 HOURS, First dose on 10/09/24 at 1615, Until Discontinued, Administer over 3 Hours, Indication for (Active or Suspected): Urinary Tract/Pyelonephritis / empiric treatment, hospital day 23, catheter removed 10/06 0021 (New Bag - Provider: Cameron Johnson RN)0321 (Stopped - Provider: Cameron Johnson RN)0809 (New Bag - Provider: Luz Bhat RN)1109 (Stopped - Provider: Luz Bhat RN)1726 (New Bag - Provider: Luz Bhat RN)2026 (Stopped - Provider: Kaelyn Acuña RN)2333 (New Bag - Provider: Kaelyn Acuña RN) 0233 (Stopped - Provider: Kaelyn Acuña RN)0903 (New Bag - Provider: Latosha Winston, TRACY)1203 (Stopped - Provider: Lorin Morejon, TRACY)1610 (New Bag - Provider: Latosha Winston, TRACY)1910 (Stopped - Provider: Latosha Winston, TRACY)2353 (New Bag - Provider: Kaelyn Acuña RN) 0253 (Stopped - Provider: Kaelyn Acuña, TRACY)0812 (New Bag - Provider: Lorin Morejon, TRACY)0842 (Stopped - Provider: Latosha Winston RN - Comment: Time automatically adjusted from order being discontinued) Diet Tube Feed: Nutren 1.5 (standard, energy-dense) (1.5 kcal/mL) 250 mL, Per G Tube, 4 TIMES DAILY, First dose on Ashley 10/07/24 at 1300, Until Discontinued, Administer over 5-60 Minutes, If giving via syringe method, administer over 5 minutes If giving via pump, administer at maximum rate of 400 mL/hour. Administer flushes and check residuals per policy. 0810 (New Bag - Provider: Luz Bhat RN)0910 (Stopped - Provider: Luz Bhat RN)1226 (New Bag - Provider: Luz Bhat, RN)1326 (Stopped - Provider: Luz Bhat, RN)1726 (New Bag - Provider: Luz Bhat, RN)1826 (Stopped - Provider: Luz Bhat, RN)2038 (New Bag - Provider: Kaelyn Aucña, TRACY)2138 (Stopped - Provider: Kaelyn Acuña RN) 0904 (New Bag - Provider: Latosha Winston, RN)1004 (Stopped - Provider: Latosha Winston, RN)1300 (New Bag - Provider: Latosha Winston, RN)1400 (Stopped - Provider: Latosha Winston, RN)1612 (New Bag - Provider: Latosha Winston, RN)1712 (Stopped - Provider: Latosha Winston, RN)2044 (New Bag - Provider: Kaelyn Acuña, TRACY)2144 (Stopped - Provider: Kaelyn Acuña RN) 0813 (New Bag - Provider: Lorin Morejon RN)0913 (Stopped - Provider: Latosha Winston, TRACY)1217 (New Bag - Provider: Lorin Morejon, TRACY)1317 (Stopped - Provider: Latosha Winston, TRACY) dilTIAZem (Cardizem) tablet 90 mg (CANCELED) 90 mg, Per G Tube, EVERY 6 HOURS SCHEDULED, First dose (after last modification) on Fri10/04/24 at 1800, Until Discontinued, Hold for HR less than or equal to 60bpm and/or SBP less than or equal to 100mmHg or on pressor, Routine 0021 (Given - Provider: Cameron Johnson, TRACY)0610 (Given - Provider: Cameron Johnson, TRACY)1226 (Given - Provider: Luz Bhat, TRACY)1727 (Given - Provider: Luz Bhat, TRACY)2334 (Given - Provider: Kaelyn Acuña, TRACY) 0556 (Given - Provider: Kaelyn Acuña, TRACY)1211 (Given - Provider: Lorin Morejon RN) dilTIAZem (Cardizem) tablet 90 mg 90 mg, Oral, EVERY 6 HOURS SCHEDULED, First dose (after last modification) on Fri10/11/24 at 1800, Until Discontinued, Hold for HR less than or equal to 60bpm and/or SBP less than or equal to 100mmHg or on pressor, Routine 1705 (Given - Provider: Latosha Winston RN) 0000 (Given - Provider: Kaelyn Acuña RN)0526 (Given - Provider: Kaelyn Acuña RN)1216 (Given - Provider: Lorin Morejon RN) enoxaparin (Lovenox) (40 mg/0.4 mL) subcutaneous injection 40 mg 40 mg, Subcutaneous, NIGHTLY, First dose on Fri09/29/24 at 2100, Until Discontinued, Routine 2037 (Given - Provider: Kaelyn Acuña RN) 2034 (Given - Provider: Kaelyn Acuña RN) free water for feeding tube 30 mL 30 mL, FEEDING TUBE, EVERY 4 HOURS SCHEDULED, First dose on Ashley 10/07/24 at 1230, Until Discontinued, Routine 0000 (Given - Provider: Cameron Johnson RN)0400 (Given - Provider: Cameron Johnson RN)0800 (Given - Provider: Luz Bhat RN)1200 (Given - Provider: Luz Bhat RN)1600 (Given - Provider: Luz Bhat RN)2000 (Given - Provider: Kaelyn Acuña RN) 0000 (Given - Provider: Kaelyn Acuña RN)0400 (Not Given - Provider: Kaelyn Acuña RN - Reason: See comment - Comment: Asleep)0800 (Given - Provider: Latosha Winston RN)1200 (Given - Provider: Lorin Morejon RN)1600 (Given - Provider: Latosha Winston RN)2039 (Given - Provider: Kaelyn Acuña RN) 0000 (Given - Provider: Kaelyn Acuña RN)0400 (Not Given - Provider: Kaelyn Acuña RN - Reason: See comment - Comment: Asleep)0800 (Given - Provider: Lorin Morejon RN)1200 (Given - Provider: Lorin Morejon RN) insulin lispro (HumaLOG;Admelog) (100 unit/mL) subcutaneous injection vial 2-12 Units(Linked Group 1) 2-12 Units, Subcutaneous, USER SPECIFIED (5 times per day), First dose (after last modification) on Fri10/08/24 at 1300, Until Discontinued, CORRECTION BOLUS [2-12 Units] Resistant Sliding Scale (BG in mg/dL) Correction Factor 10 (1 unit of insulin is expected to drop the glucose 10 mg/dL) ?? BG 140 - 160 Give 2 units BG 161 - 180 Give 4 units BG 181 - 200 Give 6 units BG 201 - 220 Give 8 units BG 221 - 240 Give 10 units BG greater than 240, give 12 units and recheck BG in 2 hours. - If recheck BG is LESS than 240, give no insulin and resume schedule. - If recheck BG is GREATER than or EQUAL to 240, give 12 units and repeat BG in 2 hours (no more than 3 times) & call for new insulin orders. DO NOT hold if NPO, unless specifically directed to do so by written order. ?? Per Inpatient Subcutaneous Insulin Policy, recheck a BG of greater than 240 mg/dL in 2 hours, Routine 0200 (Not Given - Provider: Cameron Johnson RN - Reason: Order parameters not met)0900 (Not Given - Provider: Luz Bhat RN - Reason: Order parameters not met)1232 (Given - Provider: Luz Bhat RN)1700 (Not Given - Provider: Luz Bhat RN - Reason: Order parameters not met)2037 (Given - Provider: Kaelyn Acuña RN - Comment: FSBS 182) 0242 (Not Given - Provider: Kaelyn Acuña RN - Reason: Order parameters not met - Comment: FSBS 139)0900 (Not Given - Provider: Latosha Winston RN - Reason: Order parameters not met - Comment: [phone])1300 (Not Given - Provider: Lorin Morejon RN - Reason: See comment - Comment: tube feed amount doubled at breakfast due to malfunction of kangaroo pump)1611 (Given - Provider: Latosha Winston, TRACY - Comment: [phone] (Given - Provider: Kaelyn Acuña RN) 0203 (Given - Provider: Kaelyn Acuña RN - Comment: FSBS 167)0911 (Given - Provider: Lorin Morejon, TRACY - Comment: 149)1224 (Given - Provider: Lorin Morejon RN - Comment: 157) insulin lispro (HumaLOG;Admelog) (100 unit/mL) subcutaneous injection vial 4 Units 4 Units, Subcutaneous, USER SPECIFIED (4 times per day), First dose (after last modification) on Fri10/08/24 at 1300, Until Discontinued, For Nutren 1.5 tube feed - 176 grams of carbohydrate per 1000 cc HOLD if tube feed not running HOLD if BG less than 70 Based on 1:10 I:C ratio TO COVER THE NEXT 4 HOURS OF TUBE FEEDS Administer 4 units lispro for 250 ml bolus, administer 10 to 15 minutes before start of bolus If changed from 250mls or change in tube feed formula call for new orders. , Routine 0814 (Given - Provider: Luz Bhat RN)1232 (Given - Provider: Luz Bhat RN)1731 (Given - Provider: Luz Bhat RN)2038 (Given - Provider: Kaelyn Acuña RN) 0900 (Not Given - Provider: Latosha Winston RN - Reason: Order parameters not met - Comment: [phone])1300 (Not Given - Provider: Lorin Morejon RN - Reason: See comment - Comment: tube feed amount doubled at breakfast due to malfunction of kangaroo pump)1611 (Given - Provider: Latosha Winston, TRACY)2044 (Given - Provider: Kaelyn Acuña RN) 0910 (Given - Provider: Lorin Morejon RN)1224 (Given - Provider: Lorin Morejon RN) ipratropium-albuteroL (Duoneb) 0.5 mg-3 mg(2.5 mg base)/3 mL nebulizer solution 3 mL 3 mL, Nebulization, EVERY 4 HOURS, First dose on Fri09/21/24 at 1230, Until Discontinued, Routine 0021 (Given - Provider: Cameron Johnson RN)0359 (Given - Provider: Cameron Johnson RN)0809 (Given - Provider: Luz Bhat RN)1225 (Given - Provider: Luz Bhat RN)1726 (Given - Provider: Luz Bhat RN)203 (Given - Provider: Kaelyn Acuña RN)2347 (Given - Provider: Kaelyn Acuña RN) 0400 (Not Given - Provider: Kaelyn Acuña RN - Reason: See comment - Comment: Asleep)0903 (Given - Provider: Latosha Winston RN)1212 (Given - Provider: Lorin Morejon RN)1610 (Given - Provider: Latosha Winston RN)2035 (Given - Provider: Kaelyn Acuña RN)2354 (Given - Provider: Kaelyn Acuña RN) 0400 (Not Given - Provider: Kaelyn Acuña RN - Reason: See comment - Comment: Asleep)0812 (Given - Provider: Lorin Morejon RN)1218 (Given - Provider: Lorin Morejon RN) multivitamin with minerals (Thera M) tablet 1 tablet (CANCELED) 1 tablet, Per G Tube, DAILY, First dose (after last modification) on Fri10/05/24 at 0900, Until Discontinued, Routine 0809 (Given - Provider: Luz Bhat RN) 0903 (Given - Provider: Latosha Winston RN) multivitamin with minerals (Thera M) tablet 1 tablet 1 tablet, Oral, DAILY, First dose (after last modification) on Fri10/12/24 at 0900, Until Discontinued, Routine 0811 (Given - Provider: Lorin Morejon RN) pantoprazole (Protonix) injection 40 mg 40 mg, Intravenous, DAILY, First dose on Fri09/29/24 at 1115, Until Discontinued, Reconstitute with 10 mL of normal saline to a concentration of 4 mg/mL and inject slowly over 2 minutes. 0809 (Given - Provider: Luz Bhat RN) 0903 (Given - Provider: Latosha Winston RN) 0904 (Given - Provider: Lorin Morejon RN) protein powder 2 Scoop, Per G Tube, 3 TIMES DAILY, First dose on Fri10/07/24 at 1500, Until Discontinued, Routine 0900 (Given - Provider: Luz Bhat RN)1500 (Given - Provider: Luz Bhat RN)2038 (Given - Provider: Kaelyn Acuña RN) 0900 (Given - Provider: Latosha Winston, TRACY)1500 (Given - Provider: Latosha Winston, RN)2038 (Given - Provider: Kaelyn Acuña RN) 0900 (Given - Provider: Lorin Morejon RN) sulfamethoxazole-trimet hoprim DS (Bactrim DS) 800-160 mg per tablet 1 tablet 1 tablet, Oral, EVERY 12 HOURS SCHEDULED (2 times per day), 8 doses, First dose on Fri10/12/24 at 0900, Last dose on Fri10/15/24 at 2100, Routine, Indication for (Active or Suspected): Urinary Tract/Pyelonephritis 903 (Given - Provider: Lorin Morejon RN) traZODone (Desyrel) tablet 50 mg (CANCELED) 50 mg, Oral, NIGHTLY, First dose on Fri10/11/24 at 0245, Until Discontinued, Routine 236 (Given - Provider: Kaelyn Acuña RN) traZODone (Desyrel) tablet 50 mg 50 mg, Oral, NIGHTLY, First dose (after last modification) on Fri10/11/24 at 2100, Until Discontinued, Routine 2034 (Given - Provider: Kaelyn Acuña RN) PRN Medication Order 10/10/2024 10/11/2024 10/12/2024 acetaminophen (Tylenol) (32.02 mg/mL) oral liquid 975 mg 975 mg, Per G Tube, EVERY 6 HOURS PRN, Starting on Fri10/04/24 at 1538, Until Fri10/12/24 at 1555, Fever, Pain, mild (1-3) pain, temp > 38.3C, - Maximum dose of acetaminophen is 4,000 mg from all sources in 24 hours. - Unless otherwise specified, when ordered PRN for pain, acetaminophen should be given first if other PRN pain medications are ordered., Routine 2332 (Given - Provider: Kaelyn Acuña RN) bisacodyL (Dulcolax) suppository 10 mg 10 mg, Rectal, DAILY PRN, Starting on Ashley 09/16/24 at 2205, Until Fri10/12/24 at 1555, Constipation, Administer if needed per patient's routine or if no bowel movement within 48 hours to achieve: (1) One bowel movement at least every 48 hours, AND (2) Without straining. If multiple PRN bowel medications ordered, start with magnesium hydroxide, then bisacodyL. Multiple medications may be given concomitantly for constipation. , Routine dextrose 50% intravenous solution 25 g(Linked Group 2) 25 g, Intravenous, EVERY 15 MIN PRN, Starting on Fri09/28/24 at 0939, Until Fri10/12/24 at 1555, Low blood sugar, ??Oral treatment preferred For Blood Glucose 50 to 70 mg/dL: ?? -??IF ABLE TO DRINK, give 120 mL juice or regular (not diet) soda - IF NPO, give 15 gram glucose 40% oral gel massaged into buccal mucosa - IF UNCONSCIOUS OR UNCOOPERATIVE, give 25 gram dextrose IV - IF NO IV ACCESS, give 1 mg glucagon IM. For Blood Glucose LESS than 50 mg/dL: ?? -??IF ABLE TO DRINK, give 240 mL juice or regular (not diet) soda - IF NPO, give 30 gram glucose 40% oral gel massaged into buccal mucosa - IF UNCONSCIOUS OR UNCOOPERATIVE, give 25 gram dextrose IV - IF NO IV ACCESS, 1 mg glucagon IM. Recheck BG in 15 minutes. May repeat juice/soda, gel, dextrose or glucagon once per episode. Notify provider if hypoglycemia does not resolve after two treatments. Providers should consider the following: administering longer-acting treatments for the duration of active insulin or hypoglycemia agent for persistent hypoglycemia and re-evaluating active insulin orders before administering the next dose. Warning Vesicant/Irritant Medication , Routine diclofenac (Voltaren) gel Topical (Top), 4 TIMES DAILY PRN, Pain, Starting on Fri10/10/24 at 1049, Until Fri10/12/24 at 1555, Apply topically to neck and shoulders. Total dose not to exceed 32 grams per day over all affected joints. Doses should be measured using the dosing cards supplied with the product., Where is this medication being applied? Please also specify in administration instructions. Other / neck and shoulders, Dose of medication being applied? 2 gram dose 2333 (Given - Provider: Kaelyn Acuña RN) docusate sodium (Colace) (10 mg/mL) oral liquid 100 mg(Linked Group 3) 100 mg, Oral, 2 TIMES DAILY PRN, Starting on Fri10/11/24 at 1506, Until Fri10/12/24 at 1555, Constipation, May give PO or Per Tube. Hold for loose stool., Routine glucagon (Glucagen) (1 mg/mL) injection solution 1 mg(Linked Group 2) 1 mg, Intramuscular, EVERY 15 MIN PRN, Starting on Fri09/28/24 at 0939, Until Fri10/12/24 at 1555, Low blood sugar, ??Oral treatment preferred For Blood Glucose 50 to 70 mg/dL: ?? -??IF ABLE TO DRINK, give 120 mL juice or regular (not diet) soda - IF NPO, give 15 gram glucose 40% oral gel massaged into buccal mucosa - IF UNCONSCIOUS OR UNCOOPERATIVE, give 25 gram dextrose IV - IF NO IV ACCESS, give 1 mg glucagon IM. For Blood Glucose LESS than 50 mg/dL: ?? -??IF ABLE TO DRINK, give 240 mL juice or regular (not diet) soda - IF NPO, give 30 gram glucose 40% oral gel massaged into buccal mucosa - IF UNCONSCIOUS OR UNCOOPERATIVE, give 25 gram dextrose IV - IF NO IV ACCESS, 1 mg glucagon IM. Recheck BG in 15 minutes. May repeat juice/soda, gel, dextrose or glucagon once per episode. Notify provider if hypoglycemia does not resolve after two treatments. Providers should consider the following: administering longer-acting treatments for the duration of active insulin or hypoglycemia agent for persistent hypoglycemia and re-evaluating active insulin orders before administering the next dose., Routine glucose (Glutose) 40% oral geL(Linked Group 2) 15-30 g of glucose, Buccal, EVERY 15 MIN PRN, Starting on Fri09/28/24 at 0939, Until Fri10/12/24 at 1555, Low blood sugar, ??Oral treatment preferred For Blood Glucose 50 to 70 mg/dL: ?? -??IF ABLE TO DRINK, give 120 mL juice or regular (not diet) soda - IF NPO, give 15 gram glucose 40% oral gel massaged into buccal mucosa - IF UNCONSCIOUS OR UNCOOPERATIVE, give 25 gram dextrose IV - IF NO IV ACCESS, give 1 mg glucagon IM. For Blood Glucose LESS than 50 mg/dL: ?? -??IF ABLE TO DRINK, give 240 mL juice or regular (not diet) soda - IF NPO, give 30 gram glucose 40% oral gel massaged into buccal mucosa - IF UNCONSCIOUS OR UNCOOPERATIVE, give 25 gram dextrose IV - IF NO IV ACCESS, 1 mg glucagon IM. Recheck BG in 15 minutes. May repeat juice/soda, gel, dextrose or glucagon once per episode. Notify provider if hypoglycemia does not resolve after two treatments. Providers should consider the following: administering longer-acting treatments for the duration of active insulin or hypoglycemia agent for persistent hypoglycemia and re-evaluating active insulin orders before administering the next dose. 1 tube of Glutose-15 contains 15 grams of glucose (net weight of tube = 37.5 grams.), Routine iohexoL (Omnipaque) (350 mg/mL) solution 0-200 mL 0-200 mL, Intravenous, ONCE PRN, 1 dose, Starting on Fri09/28/24 at 1246, Until Fri10/12/24 at 1555, Per Protocol, Warning Vesicant/Irritant Medication , Radiology Contrast, Routine labetaloL (Normodyne) (5 mg/mL) injection solution 20 mg 20 mg, Intravenous, EVERY 4 HOURS PRN, Starting on Fri09/26/24 at 1820, Until Fri10/12/24 at 1555, High Blood Pressure, < 160 mm Hg, Routine ondansetron (pf) (Zofran) (2 mg/mL) injection 4 mg 4 mg, Intravenous, EVERY 8 HOURS PRN, Starting on Fri09/28/24 at 1835, Until Fri10/12/24 at 1555, Nausea polyethylene glycoL (Miralax) packet 17 g 17 g, Oral, DAILY PRN, Starting on Fri10/11/24 at 1507, Until Fri10/12/24 at 1555, Constipation, Routine potassium chloride ER (Klor-Con M) crystal tablet 20 mEq(Linked Group 4) 20 mEq, Oral, EVERY 4 HOURS PRN, Starting on Fri10/11/24 at 1507, Until Fri10/12/24 at 1555, hypokalemia, Administer for serum potassium (mMol/L) of 3.9 - 4 potassium chloride ER particle/crystal tablets (Klor-Con M) may be broken in half and each half swallowed separately. Tablets can be dissolved in ~4 ounces of water; allow ~2 minutes to dissolve, stir well and drink immediately. Do not crush, chew, or suck on tablet., Routine potassium chloride ER (Klor-Con M) crystal tablet 40 mEq(Linked Group 4) 40 mEq, Oral, EVERY 4 HOURS PRN, Starting on Fri10/11/24 at 1507, Until Fri10/12/24 at 1555, hypokalemia, Administer for serum potassium (mMol/L) of 3.6 - 3.8 potassium chloride ER particle/crystal tablets (Klor-Con M) may be broken in half and each half swallowed separately. Tablets can be dissolved in ~4 ounces of water; allow ~2 minutes to dissolve, stir well and drink immediately. Do not crush, chew, or suck on tablet., Routine sennosides (Senokot) (1.76 mg/mL) oral liquid 17.6 mg(Linked Group 3) 17.6 mg, Oral, 2 TIMES DAILY PRN, Starting on Fri10/11/24 at 1506, Until Fri10/12/24 at 1555, Constipation, May give PO or Per Tube. Hold for loose stool., Routine sodium chloride (NebuSal) 3 % nebulizer solution 4 mL 4 mL, Nebulization, EVERY 6 HOURS PRN, Starting on Fri09/24/24 at 1413, Until Fri10/12/24 at 1555, Cough, Routine Linked Groups Order Group 1: POCT Fingerstick Glucose (CANCELED) Routine, USER SPECIFIED-PROCEDURES (5 times per day), First occurrence on Fri10/08/24 at 1300, Until Specified, Consider choosing EVERY 4 HOURS as frequency for: - Type 1 Diabetes - At least 24 hours after coming off an insulin drip - At least 24 hours after admission for DKA - Hypoglycemia unawareness - Patients who are otherwise unstable Select the same frequency for the correction bolus insulin order And insulin lispro (HumaLOG;Admelog) (100 unit/mL) subcutaneous injection vial 2-12 UnitsJump to med 2-12 Units, Subcutaneous, USER SPECIFIED (5 times per day), First dose (after last modification) on Fri10/08/24 at 1300, Until Discontinued, CORRECTION BOLUS [2-12 Units] Resistant Sliding Scale (BG in mg/dL) Correction Factor 10 (1 unit of insulin is expected to drop the glucose 10 mg/dL) ?? BG 140 - 160 Give 2 units BG 161 - 180 Give 4 units BG 181 - 200 Give 6 units BG 201 - 220 Give 8 units BG 221 - 240 Give 10 units BG greater than 240, give 12 units and recheck BG in 2 hours. - If recheck BG is LESS than 240, give no insulin and resume schedule. - If recheck BG is GREATER than or EQUAL to 240, give 12 units and repeat BG in 2 hours (no more than 3 times) & call for new insulin orders. DO NOT hold if NPO, unless specifically directed to do so by written order. ?? Per Inpatient Subcutaneous Insulin Policy, recheck a BG of greater than 240 mg/dL in 2 hours, Routine Group 2: glucose (Glutose) 40% oral geLJump to med 15-30 g of glucose, Buccal, EVERY 15 MIN PRN, Starting on Fri09/28/24 at 0939, Until Fri10/12/24 at 1555, Low blood sugar, ??Oral treatment preferred For Blood Glucose 50 to 70 mg/dL: ?? -??IF ABLE TO DRINK, give 120 mL juice or regular (not diet) soda - IF NPO, give 15 gram glucose 40% oral gel massaged into buccal mucosa - IF UNCONSCIOUS OR UNCOOPERATIVE, give 25 gram dextrose IV - IF NO IV ACCESS, give 1 mg glucagon IM. For Blood Glucose LESS than 50 mg/dL: ?? -??IF ABLE TO DRINK, give 240 mL juice or regular (not diet) soda - IF NPO, give 30 gram glucose 40% oral gel massaged into buccal mucosa - IF UNCONSCIOUS OR UNCOOPERATIVE, give 25 gram dextrose IV - IF NO IV ACCESS, 1 mg glucagon IM. Recheck BG in 15 minutes. May repeat juice/soda, gel, dextrose or glucagon once per episode. Notify provider if hypoglycemia does not resolve after two treatments. Providers should consider the following: administering longer-acting treatments for the duration of active insulin or hypoglycemia agent for persistent hypoglycemia and re-evaluating active insulin orders before administering the next dose. 1 tube of Glutose-15 contains 15 grams of glucose (net weight of tube = 37.5 grams.), Routine Or dextrose 50% intravenous solution 25 gJump to med 25 g, Intravenous, EVERY 15 MIN PRN, Starting on Fri09/28/24 at 0939, Until Fri10/12/24 at 1555, Low blood sugar, ??Oral treatment preferred For Blood Glucose 50 to 70 mg/dL: ?? -??IF ABLE TO DRINK, give 120 mL juice or regular (not diet) soda - IF NPO, give 15 gram glucose 40% oral gel massaged into buccal mucosa - IF UNCONSCIOUS OR UNCOOPERATIVE, give 25 gram dextrose IV - IF NO IV ACCESS, give 1 mg glucagon IM. For Blood Glucose LESS than 50 mg/dL: ?? -??IF ABLE TO DRINK, give 240 mL juice or regular (not diet) soda - IF NPO, give 30 gram glucose 40% oral gel massaged into buccal mucosa - IF UNCONSCIOUS OR UNCOOPERATIVE, give 25 gram dextrose IV - IF NO IV ACCESS, 1 mg glucagon IM. Recheck BG in 15 minutes. May repeat juice/soda, gel, dextrose or glucagon once per episode. Notify provider if hypoglycemia does not resolve after two treatments. Providers should consider the following: administering longer-acting treatments for the duration of active insulin or hypoglycemia agent for persistent hypoglycemia and re-evaluating active insulin orders before administering the next dose. Warning Vesicant/Irritant Medication , Routine Or glucagon (Glucagen) (1 mg/mL) injection solution 1 mgJump to med 1 mg, Intramuscular, EVERY 15 MIN PRN, Starting on Fri09/28/24 at 0939, Until Fri10/12/24 at 1555, Low blood sugar, ??Oral treatment preferred For Blood Glucose 50 to 70 mg/dL: ?? -??IF ABLE TO DRINK, give 120 mL juice or regular (not diet) soda - IF NPO, give 15 gram glucose 40% oral gel massaged into buccal mucosa - IF UNCONSCIOUS OR UNCOOPERATIVE, give 25 gram dextrose IV - IF NO IV ACCESS, give 1 mg glucagon IM. For Blood Glucose LESS than 50 mg/dL: ?? -??IF ABLE TO DRINK, give 240 mL juice or regular (not diet) soda - IF NPO, give 30 gram glucose 40% oral gel massaged into buccal mucosa - IF UNCONSCIOUS OR UNCOOPERATIVE, give 25 gram dextrose IV - IF NO IV ACCESS, 1 mg glucagon IM. Recheck BG in 15 minutes. May repeat juice/soda, gel, dextrose or glucagon once per episode. Notify provider if hypoglycemia does not resolve after two treatments. Providers should consider the following: administering longer-acting treatments for the duration of active insulin or hypoglycemia agent for persistent hypoglycemia and re-evaluating active insulin orders before administering the next dose., Routine Group 3: docusate sodium (Colace) (10 mg/mL) oral liquid 100 mgJump to med 100 mg, Oral, 2 TIMES DAILY PRN, Starting on Fri10/11/24 at 1506, Until Fri10/12/24 at 1555, Constipation, May give PO or Per Tube. Hold for loose stool., Routine And sennosides (Senokot) (1.76 mg/mL) oral liquid 17.6 mgJump to med 17.6 mg, Oral, 2 TIMES DAILY PRN, Starting on Fri10/11/24 at 1506, Until Fri10/12/24 at 1555, Constipation, May give PO or Per Tube. Hold for loose stool., Routine Group 4: potassium chloride ER (Klor-Con M) crystal tablet 40 mEqJump to med 40 mEq, Oral, EVERY 4 HOURS PRN, Starting on Fri10/11/24 at 1507, Until Fri10/12/24 at 1555, hypokalemia, Administer for serum potassium (mMol/L) of 3.6 - 3.8 potassium chloride ER particle/crystal tablets (Klor-Con M) may be broken in half and each half swallowed separately. Tablets can be dissolved in ~4 ounces of water; allow ~2 minutes to dissolve, stir well and drink immediately. Do not crush, chew, or suck on tablet., Routine Or potassium chloride ER (Klor-Con M) crystal tablet 20 mEqJump to med 20 mEq, Oral, EVERY 4 HOURS PRN, Starting on Fri10/11/24 at 1507, Until Fri10/12/24 at 1555, hypokalemia, Administer for serum potassium (mMol/L) of 3.9 - 4 potassium chloride ER particle/crystal tablets (Klor-Con M) may be broken in half and each half swallowed separately. Tablets can be dissolved in ~4 ounces of water; allow ~2 minutes to dissolve, stir well and drink immediately. Do not crush, chew, or suck on tablet., Routine documented in this encounter Additional Health Concerns Infection Onset Date Last Indicated Resolved Time Rule Out C. 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
--- OUTSIDE RECORDS SUMMARY | 2024-10-20 17:22 | XMS_ITS | Encounter Summary ---
Author Organization [facility] [place] [address] Care Team Providers Care Auto Body Worker Name Role Phone EvHina Leila Primary Care Provider [phone] Reason for Visit * Auth/Cert (Routine) Specialty Diagnoses / Procedures Referred By Contac t Referred To Contact Diagnoses Atrial fibrillation, unspecified type A fib ANGUS Procedures PRO PERQ CLSR TCAT L ATR APNDGE W/ENDOCARDIAL IMPLNT CARDIAC CATHETERIZATION @PERQ TRANSCATH CLOSURE LEFT ATRIAL APPENDAGE W ENDOCARDIAL IMPLANT, INC RAD S&I (WRVU 14) TRANSESOPHAGEAL ECHO DURING CATH/EP PROCEDURE Duane Causey MD [facility] [place] [address] [facility] Referral ID Status Reason Start Date Expiration Date Visits Re quested Visits Authorized [id number] 1 1 Encounter Details Date Type Department Care Team (Late st Contact Info) Description 10/04/2024 12:00 PM [place] [address] Dc Young MD [facility] [place] [address] Anesthesia Record Procedure Summary Procedure Name Responsible Anesthesiologist Anesthesia Start Time Anesthesia Stop Time PERCUTANEOUS GASTROSTOMY Dc Young MD 10/04/24 1200 10/04/24 1310 Events Date Time Event Comment 10/04/2024 1111 1200 AN Verify 1200 Start 1200 An Start Data 1211 An Induction 1212 Anesthesia Ready 1239 Procedure Start 1252 Procedure Stop 1303 an stop data 1307 Recovery or ICU Handoff Marisela ent care was transferred to the destination unit staff after review of the patient's medical history, current anesthetic/surgical status and plan, according to the Provider Handoff Checklist. 1310 Stop Meds Name Total propofol INF 64.9 mg glucagon (Glucagen) (1 mg/mL) injection solution 1 mg 1 mg ceFAZolin 2 g * Agents Name O2 Air N2O O2 Auxiliary Flowmeter 1 * Blood No blood administrations on file. Lines, Drains, and Airways Type Details Placement Removal Incision 09/16/24; Right; parietal region; other (see comments) (crani-hematoma incision) 09/16/24 0000 by Marcia Juarez RN Wound 09/30/24; 1240; Bilateral; gluteal; moisture/friction 09/30/24 1240 by Rosalinda Herrera RN Enterostomy Tube 10/04/24; 1236; gastrostomy tube with balloon; midline; 16Fr 10/04/24 1236 by Brad Lubin RN Cental Line 09/17/24; 1405; Trip le Lumen; pressure injectable catheter; subclavian vein, right; Anatomical Landmarks; Yes - US guidance used but Image NOT saved; placement verified by x-ray; 10/04/24; 1744 09/17/24 1405 by Jony Carroll RN 10/04/24 1744 by Anabel De La Garza, TRACY NG/OG Tube 09/18/24; 1229; smal l bore, nonweighted; right nostril; 60; Secured (Bridled); 10/04/24; 1735 09/18/24 1229 by Tomy Truong RN 10/04/24 1735 by Anabel De La Garza RN Urethral Catheter 10/02/24; 0315; Acut e urinary retention or obstruction; indwelling double lumen catheter; 14; 10/06/24; 1639 10/02/24 0315 by Jeanette Patino RN 10/06/24 1639 by Jaida Anthony RN Fecal Incontinence Academic Affairs Manager 10/02/24; 1208; not previously charted on; 10/05/24; 1319 10/02/24 1208 by Yennifer Wood RN 10/05/24 1319 by Anabel De La Garza RN documented in this encounter Social History Tobacco Use Types Packs/Day Years Used Date Smoking Tobacco: Former Cigarettes 2002 Smokeless Tobacco: Never Alcohol Use Standard Drinks/Week Comments Never 0 (1 standard drink = 0.6 oz pur e alcohol) [facility] Utilities Answer Date Recorded In [...] place to sleep or slept in a half-way (including now)? No 03/03/2024 Housing Stability Vital [...] time in the past 12 m [facility], were you homeless or living in a half-way (including now)? No 09/17/2024 [facility] IPV Inpatient Questions Answer Date Recorded Does [...] on file documented as of this encounter OR Notes * Anesthesia Postprocedure Evaluation - Dc Young MD - 10/04/2024 4:45 PM EST Department of Anesthesiology Post-procedure Note Patient: Lucero Arthur Procedure Summary Date: 10/04/24 Room / Location: [facility] INTERVENTIONAL RADIOLOGY / [facility] Anesthesia Start: 1200 Anesthesia Stop: 1310 Procedure: PERCUTANEOUS GASTROSTOMY Diagnosis: (R occipital hemorrhage, unable to swallow, NG tube currently placed, will need PEG for longer term nutrition) Surgeons: Jony Sampson MD Responsible Provider: Dc Young MD Anesthesia Type: MAC ASA Status: 3 All Anesthesia Providers: Anesthesiologist: Dc Young MD CHECKER IN: Zainab Rabago CRNA Vitals Value Taken Time BP 115/57 10/04/24 1400 Temp 36.5 ??C (97.7 ??F) 10/04/24 1400 Pulse 78 10/04/24 1401 Resp 15 10/04/24 1401 SpO2 97 % 10/04/24 1401 Pain Level 0 10/04/24 1345 Vitals shown include unfiled device data. Patient Location: PACU/[facility] Level of Consciousness: Awake and Alert Pain Management: Satisfactory Analgesia PONV: None Cardiovascular Status: At Baseline and Hemodynamically Stable Respiratory Status: At Baseline and Room Air Postoperative Fluid Status: Intravascular EUvolemia Possible Anesthetic Complications: NONE apparent at time of evaluation Final Primary Anesthesia Type: General (The anesthetic type performed was the same as planned.) Comments: Dc Young MD * Anesthesia Preprocedure Evaluation - Dc Young MD - 10/04/2024 11:10 AM EST Pre-Anesthesia Evaluation for: Lucero Arthur a 74 y.o. female. Procedure(s): PERCUTANEOUS GASTROSTOMY Patient Active Problem List Diagnosis Date Noted ??? Severe protein-calorie malnutrition 10/01/2024 ??? Presence of Watchman left atrial appendage closure device 09/16/2024 ??? S/P craniotomy 09/16/2024 ??? Post-operative state 05/24/2024 ??? Chronic atrial fibrillation 05/08/2024 ??? 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 Irregular heart beat ??? Obstructive sleep apnea Past Surgical History: Procedure Laterality Date ??? PRG ECHOENCEPHALOGRAPH REAL TIME Right 09/16/2024 ULTRASOUND USE (WRVU 0.63) performed by Sushila Espinal MD at [facility] MAIN OR ? ? PRO LAPAROSCOPY W TOT HYSTERECTUTERUS <=250 GRAM W TUBE/OVARY N/A 04/23/2024 LAPAROSCOPY, TOTAL HYST, UTERUS<250GMS, REM TUBE &/OR OVARY (WRVU 15) performed by Xiomara Burkett MD at [facility] MAIN OR ??? PRO OPEN SKULL EVAC INTRACEREBR BLOOD Right 09/16/2024 @CRANI-HEMATOMA EVACUATION, INTRACEREBRAL (WRVU 28.09) performed by Sushila Espinal MD at [facility] MAIN OR ??? PRO PERQ CLSR TCAT L ATR APNDGE W/ENDOCARDIAL IMPLNT N/A 09/16/2024 @PERQ TRANSCATH CLOSURE LEFT ATRIAL APPENDAGE W ENDOCARDIAL IMPLANT, INC RAD S&I (WRVU 14) performed by Duane Causey MD at [facility] CATH LABS Social History Tobacco Use ??? Smoking status: Former Current packs/day: 0.00 Average packs/day: 2.0 packs/day for 30.0 years (60.0 ttl pk-yrs) Types: Cigarettes Start date: 1972 Quit date: 2003 Years since quittin.8 ??? Smokeless tobacco: Never Substance Use Topics ??? Alcohol use: Never Social History Substance and Sexual Activity Drug Use Never Allergies Allergen Reactions ??? Oxycodone-Acetaminophen Other (See Comments) Other reaction(s): hallucinations ??? Alendronate Sodium Nausea Only ??? Contact Metal Agent Medications: MAR and/or home medications have been reviewed. Physical Exam: Preprocedure Vitals Current as of 10/04/24 1110 BP: 104/61 Pulse: 61 Resp: 16 SpO2: 99 Temp: 36.7 ??C (98 ??F) Height: 152.4 cm (5') (09/21/24) Weight: 79.3 kg (174 lb 12.8 oz) (10/04/24) BMI: 34.14 IBW: 45.5 kg (100 lb 4.9 oz) Last edited 10/04/24 1000 by TB Airway Assessment: Mallampati: III TM distance: >3 FB Neck ROM: full Cardiovascular Assessment: system normal Pulmonary Assessment: pulmonary exam normal Dental Assessment: Misc Assessment: Last Filed Perioperative Cognitive Screening Value Time User AD8 Total Score: 6 03/03/2024 1:00 PM Gera Alexis RN AD8 Informant: Patient 03/03/2024 1:00 PM Gera Alexis, RN CFS Frailty Score: 3 03/03/2024 1:00 PM Gera Alexis, RN Anesthesia Plan: ASA 3 MAC, 74yo female s/p right occipital hemorrhage, presenting for PEG tube placement Appropriately npo Plan for MAC, GA backup Phone consent from son Informed Consent: Anesthesia Screening documented in this encounter Plan of Treatment Upcoming Encounters Date Type Department Care Team (Late st Contact Info) Description 11/04/2024 11:15 AM EST Appointment Non-Invasive [place] [phone] 11/10/2024 8:00 AM EST [place] [phone] Clarisse Duke, RICHARD [facility] [place] [address] 11/15/2024 10:[address] [place] [phone] Karli Morales MD [facility] [place] [address] 11/15/2024 11:20 AM EST [place] [phone] Marvin Kimball PA [facility] [place] [address] 12/15/2024 4:40 PM EST TH Visit (TeleHealth) Cardiology at [place] [phone] Duane Causey MD [facility] [address] documented as of this encounter Visit Diagnoses Not on filedocumented in this encounter Administered Medications Inactive Administered Medications - up to 3 most recent administrations Medication Order MAR Action Action Date Dose Rate Site ceFAZolin (Ancef) (100 mg/mL) injection solution Intravenous, PRN, Starting on Fri10/04/24 at 1235, Until Fri10/04/24 at 1331, Anesthesia Intra-op, Routine Given 10/04/2024 12:35 PM EST 2 g glucagon (Glucagen) (1 mg/mL) injection solution 1 mg 1 mg, Intravenous, ONCE, 1 dose, On Fri10/04/24 at 1215, For use in Interventional Radiology (IR) only for procedure with direct provider supervision and verbal order. , Angio/IR (Intra-Procedure), Routine New Bag 10/04/2024 12:35 PM EST 1 mg propofoL (Diprivan) (10 mg/mL) infusion Intravenous, CONTINUOUS PRN, Starting on Fri10/04/24 at 1211, Until Fri10/04/24 at 1331, Anesthesia Intra-op, Routine Rate/Dose Change 10/04/2024 12:16 PM EST 25 mcg/kg/min 8.85 mL/hr New Bag 10/04/2024 12:11 PM EST 50 mcg/kg/min 17.7 mL/h r documented in this encounter Care Teams Auto Body Worker Relationship Specialty Start Date End Date Leila Manjarrez [address] [place] [address] PCP - General Family Medicine 09/09/24 documented as of this encounter
--- OUTSIDE RECORDS SUMMARY | 2024-10-20 17:24 | XMS_ITS | Encounter Summary ---
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 Role Phone EvHinaLeila Primary Care Provider [phone] Reason for Visit * Auth/Cert (Routine) Specialty Diagnoses / Procedures Referred By Contac t Referred To Contact Diagnoses Atrial fibrillation, unspecified type A fib ANGUS Procedures PRO PERQ CLSR TCAT L ATR APNDGE W/ENDOCARDIAL IMPLNT CARDIAC CATHETERIZATION @PERQ TRANSCATH CLOSURE LEFT ATRIAL APPENDAGE W ENDOCARDIAL IMPLANT, INC RAD S&I (WRVU 14) TRANSESOPHAGEAL ECHO DURING CATH/EP PROCEDURE Duane Causey MD [facility] [place] [address] [facility] Referral ID Status Reason Start Date Expiration Date Visits Re quested Visits Authorized [id number] 1 1 Encounter Details Date Type Department Care Team (Late st Contact Info) Description 10/04/2024 11:30 AM EST - 10/04/2024 12:30 [place] [address] Jony Sampson MD [facility] INTERVENTIONAL [place] [address] PERCUTANEOUS GASTROSTOMY Social History Tobacco Use Types Packs/Day Years Used Date Smoking Tobacco: Former Cigarettes 2 30 1 3 - 2002 Smokeless Tobacco: Never Alcohol Use Standard Drinks/Week Comments Never 0 (1 standard drink = 0.6 oz pur e alcohol) [facility] Utilities Answer Date Recorded In the past 12 months has th e electric, gas, oil, or water [place] threatened to shut off services in your [...] place to sleep or slept in a fdc (including now)? No 03/03/2024 Housing Stability Vital Sign Answer Salvador e Recorded In the last 12 months, was t here a time when you were not able to pay the mortgage or rent on time? No 09/17/2024 In the past 12 months, how m any times have you moved where you were living? 0 09/17/2024 At any time in the past 12 m [facility], were you homeless or living in a fdc (including now)? No 09/17/2024 DH IPV Inpatient [...] Sign Reading Time Taken Comments Blood Pressure 104/61 10/04/2024 10:00 AM EST Pulse 66 10/04/2024 11:35 AM EST Temperature 36.7 ??C (98 ??F) 10/04/2024 10: 00 AM EST Respiratory Rate 13 10/04/2024 11:3 5 AM EST Oxygen Saturation 100% 10/04/2024 11: 35 AM EST Inhaled Oxygen Concentration - - Weight 79.3 kg (174 lb 12.8 oz) 10/04/2024 6:00 AM EST Height 152.4 cm (5') 09/16/2024 12:58 PM EDT Body Mass Index 33.4 09/21/2024 6:38 PM EDT documented in this encounter Discharge Summaries * Val Connor PA - 10/12/2024 12:02 PM EST Images from the original note were not included. Discharge Summary Patient Name: Lucero Bruno Patient Age: 74 y.o. Language: Eritrean Admit date: 09/16/2024 Discharge date and time: [...] Calculated (Bezet) ms 449 446 Calculated P [place] degrees 44 36 Calculated R [place] degrees -22 -17 Calculated T [place] degrees 34 28 INTERPRETATION Sinus tachycardia with [...] found Confirmed by MD Ruggiero Jonathan C. ([id number]) on 09/19/2024 9:11:06 AM CXR XR Chest [...] who have questions please contact the health cna caregiver that requested your imaging first. Electronically signed by: [facility]AD [facility] ([phone]), at 3:00 PM XR Chest One View [...] who have questions please contact the health cna caregiver that requested yourimaging first. Chest One View Result Date: 09/28/2024 1. [...] who have questions please contact the health cna caregiver that requested your imaging first. Chest One View Result Date: 09/28/2024 1. [...] who have questions please contact the health cna caregiver that requested your imaging first. Chest One View Result Date: 09/21/2024 ET [...] who have questions please contact the health cna caregiver that requested your imaging first. Chest One View Result Date: 09/18/2024 Tubes [...] who have questions please contact the health cna caregiver that requested your imaging first. Chest One [...] who have questions please contact the health cna caregiver that requested your imaging first. Chest One View Result Date: 09/17/2024 Satisfactorily positioned enteric and endotracheal tubes. Left lower lobe atelectasis versus pneumonia. Thank you for letting us participate in the care of this patient. If you are a health care provider and have any questions regarding this report, please contact the number below. For patients whohave questions please contact the health cna caregiver that requested your imaging first. Head CT Head wo Contrast (Generic) Result [...] who have questions please contact the health cna caregiver that requested your imaging first. Head wo Contrast (Generic) Result Date: 10/04/2024 [...] healthcare professional that requested your imaging first. Head wo Contrast (Generic) Result Date: 09/26/2024 [...] who have questions please contact the health cna caregiver that requested your imaging first. Head wo Contrast (Generic) Result Date: 09/22/2024 [...] who have questions please contact the health cna caregiver that requested your imaging first. Head wo Contrast (Generic) Result Date: 09/21/2024 [...] patients who have questions pleasecontact the health cna caregiver that requested your imaging first. Head wo Contrast (Generic) Addendum Date: 09/17/2024 [...] who have questions please contact the health cna caregiver that requested your imaging first. Electronically signed by: Elvin Bolden DO, [facility] ([phone]),at 09/17/2024 8:55 AM --------ORIGINAL REPORT -------- EXAMINATION: [...] care of this patient. If [facility] provider and have any questions regarding this report, please contact the number below.For patients who have questions please contact the health cna caregiver that requested your imaging first. Electronically signed by: Elvin Bolden DO, [facility] ([phone]), at 8:38 AM Addendum Date: 09/17/2024 --------ADDENDUM [...] who have questions please contact the health cna caregiver that requested yourimaging first. Electronically signed by: lEvin [facility] ([phone]), at 09/17/2024 8:38 AM Result Date: 09/17/2024 [...] who have questions please contact the health cna caregiver that requested your imaging first. Electronically signed by: [facility] ([phone]), at 09/17/2024 8:[address] Head wo [...] who have questions please contact the health cna caregiver that requested your imaging first. Head wo Contrast (Generic) Result Date: 09/16/2024 [...] who have questions please contact the health cna caregiver that requested your imaging first. Electronically signedby: Lana Reinoso [facility] ([phone]), at 09/16/2024 6:01 PM MRA Head and [...] who have questions please contact the health cna caregiver that requested your imaging first. Brain wwo Contrast (Generic) Result Date: 09/20/2024 Unchanged size of large right cerebral hemisphere ICH status post partial evacuation. Numerous small foci of decreased acute infarction both along and separate from the site of hemorrhage. These fociare present in both cerebral hemispheres and have a pattern most consistent with embolic infarction. No evidence of LEADERSHIP COACH malignancy Thank you for letting us participate in the care of this patient. Ifyou are a health care provider and have any questions regarding this report, please contact the number below. For patients who have questions please contact the health cna caregiver that requested your imaging first. [place] No results found. TTE Interpretation [...] 1 - Total Anticipated Discharge Disposition (PT): senior care facility OT Eval: How much help from [...] 1 - Total Anticipated Discharge Disposition (OT): senior care facility TAG MARKER: Cleared for purees with meds crushed 10/11 Vital Signs at Discharge: BP: [...] 2 NIH Total Score 17 Discharge to: long term facility Updated Allergies/ADRs: Allergies Allergen Reactions Oxycodone-Acetaminophen Other (See Comments) Other reaction(s): hallucinations Alendronate Sodium Nausea Only Contact Metal Agent Immunizations Given this Hospitalization: Immunization History Administered Date(s) Administered Covid-19 Bivalent (Moderna Spikevax) 6mo+ (Age based Dosage) (6956-0176) 10/29/2023 Covid-19 Monovalent (Moderna Spikevax) 12yrs+ (5634-8653) 04/16/2022 Influenza Vaccine, Whole 11/11/2008 Discharge Medications: [...] stroke, and education on stroke follow-up. Modified Barber Score (MRS) on discharge Score Description 0 [...] were admitted to the neurology service at [facility] Your Diagnosis: hemorrhagic stroke secondary to [...] follow-up appointment in the neurology clinic at [facility]. See below for the appointment time. If [...] may be billed similar to a regular ljee-bn-eijk clinic visit. Primary Care Provider: Please follow up with your Primary Care Provider within one to 2 weeks of discharge. For questions regarding this document or issues relating to this hospitalization on the Neurology Service, please contact the author(s) of this discharge summary through the [facility] [employer] . If you need to cancel or reschedule, please call Dept: [phone] as soon as possible. This is helpful to us and other waiting patients. IF FOLLOW UP VISIT WITH STROKE TEAM IS NEEDED IN FORM OF TELEHEALTH: Please ensure you have an active [employer] account and are familiar with it. Also, please ensure an active email address. To sign up for a [employer] account, Visit the [email or web address] website and 1) choose ???create an account?? [...] created. If you need technical assistance call [phone] Friday through Friday, 7:30 am to 5:00 pm If you plan to join your [employer] Video Visit using your personal smartphone or tablet, prior to joining your visit you will need to download the Zoom jessi from the Jessi Store (for iPhone/iPad) or Upplication (for Android). Ifyou already have Zoom downloaded on your device for personal use, you???re good to go! 1. Open the Jessi Store or Google Play Store on your device. 2. Search for Zoom and download the Zoom [place] jessi. ? Jessi Store Link: https://apps.[employer]/us/jessi/dndk-eslvo-pfnkvkaa/[email or web address] ? Google Play Link: https://Transit App/store/apps/details?id=us.zoom.videomeetings If you plan to join your [facility] Video Visit using your computer or laptop, prior to joining your video visit you will need to download Zoom. If you already have Zoom downloaded on your machine for personal use, you???re good to go! 1. Open your web browser (Internet Explorer, Chrome, etc.). 2. Type zoom.us and press enter on your keyboard (or click this link: https://[employer]us/). 3. In the top right corner of [...] link to connect to your visit withinyour [facility] portal. 1. Sign into your [facility] account. 2. Select Appointments. 3. Select your [facility] Video Visit and tap Begin Visit. 4. [...] Starting 30 minutes prior to your scheduled [facility] Video Visit, you will find the link to connect tothe visit within your myD-H portal. 1. Sign into your [employer] account ([employer] portal link: [email or web address]). 2. On the top of the webpage, hover over Visits and select Appointments and Visits. 3. Click the Details button next to your [facility] video visit. 4. Click the Begin Video [...] anticoagulant, and non-steroidal anti-inflammatory (NSAIDs) drugs. Common cirk-qgl-tmwnean medications which should be avoided include Aspirin, [...] a head injury. - When your health cna caregiver says you are well enough, return to your normal activities gradually, not all at once. - Talk with your health cna caregiver about when you can return to work. DRIVING: - Do not drive while taking narcotic pain medication. [x] Do NOT drive until cleared by Neurosurgery. FOLLOW UP PLAN: Incision: [] Please follow up for suture/staple removal in 10-14 days with your Primary Care Provider or withthe Neurosurgery CERTIFIED LACTATION EDUCATOR/RN. Appointments: [x] Please follow up in the Neurosurgery Clinic in 4 weeks. Please call the Neurosurgery Office at [phone] if you do not receive a scheduled [...] 11:15 AM TRANSESOPHAGEAL ECHO Non-Invasive Cardiology Lab [facility] Arrive at: Radiologic Electronic Specialist Area 4W [phone] Check-in at [facility] 4W. PATIENT INSTRUCTIONS: Nothing to eat or drink after midnight. You will be sedated for your test and will need someone to drive you home. Bring a complete list of your medications. Check-in at [facility] 4W . PROCEDURE INSTRUCTIONS:Nothing to eat or drink after midnight. You will be sedated for your test and will need someone to drive you home. 11/10/2024 8:00 AM Clarisse Duke APRN Neurology at [facility] Arrive at: Radiologic Electronic Specialist Area 3C [phone] 12/15/2024 4:40 PM Duane Causey MD Cardiology at [facility] Arrive at: Home [phone] Please do not come in for this visit. Your provider will call you at the number you provided. Future Orders Complete By Expires IR Suture Release [[id number] Custom] 10/11/2024 12/04/2024 Process Instructions: Scheduling Instructions: Comments: Questions: Where will study be performed?: [facility] Radiology To be scheduled: Next available after expected date Reason for exam and clinical history: G tube placed 10/04, 7-10 day pexy release Exam/Procedure requested: What labs need to be collected during imaging study?: Is the patient on anticoagulant / antiplatelet therapy ?: No Does patient require sedation?: CT Head wo Contrast (Generic) [[id number] Custom] 11/11/2024 02/09/2025 Process Instructions: Scheduling Instructions: Questions: Where will study be performed?: [facility] Radiology To be scheduled: Next available after expected date Is this imaging required as part of a research protocol?: No Reason for exam and clinical history: Follow up ICH in the setting of CAA Stat read required?: Does patient require sedation?: Primary Care Provider: Leila Manjarrez [address] / [place] [address] Discharge References/Attachments None documented in this encounter [...] anticoagulant, and non-steroidal anti-inflammatory (NSAIDs) drugs. Common kgpp-vmu-xxklkeb medications which should be avoided include Aspirin, [...] a head injury. - When your health cna caregiver says you are well enough, return to your normal activities gradually, not all at once. - Talk with your health cna caregiver about when you can return to work. DRIVING: - Do not drive while taking narcotic pain medication. [x] Do NOT drive until cleared by Neurosurgery. FOLLOW UP PLAN: Incision: [] Please follow up for suture/staple removal in 10-14 days with your Primary Care Provider or withthe Neurosurgery CERTIFIED LACTATION EDUCATOR/RN. Appointments: [x] Please follow up in the Neurosurgery Clinic in 4 weeks. Please call the Neurosurgery Office at [phone] if you do not receive a scheduled [...] were admitted to the neurology service at [facility] Your Diagnosis: hemorrhagic stroke secondary to [...] follow-up appointment in the neurology clinic at [facility]. See below for the appointment time. If [...] may be billed similar to a regular ucrw-nm-hljj clinic visit. Primary Care Provider: Please follow up with your Primary Care Provider within one to 2 weeks of discharge. For questions regarding this document or issues relating to this hospitalization on the Neurology Service, please contact the author(s) of this discharge summary through the [facility] [employer] . If you need to cancel or reschedule, please call Dept: [phone] as soon as possible. This is helpful to us and other waiting patients. IF FOLLOW UP VISIT WITH STROKE TEAM IS NEEDED IN FORM OF TELEHEALTH: Please ensure you have an active [employer] account and are familiar with it. Also, please ensure an active email address. To sign up for a [employer] account, Visit the [email or web address] website and 1) choose ???create an account?? [...] created. If you need technical assistance call [phone] Friday through Friday, 7:30 am to 5:00 pm If you plan to join your [facility] Video Visit using your personal smartphone or tablet, prior to joining your visit you will need to download the Zoom jessi from the Jessi Store (for iPhone/iPad) or Upplication (for Android). Ifyou already have Zoom downloaded on your device for personal use, you???re good to go! 1. Open the Jessi Store or Upplication Store on your device. 2. Search for Zoom and download the Zoom [place] jessi. ? Jessi Store Link: https://apps.[place].[employer]/us/jessi/nrnk-qowep-mobxnpkp/nk677091695 ? Upplication Link: https://Transit App/store/apps/details?id=us.zoom.videomeetings If you plan to join your [facility] Video Visit using your computer or laptop, [...] the link to connect to your visit withinyoZentact portal. 1. Sign into your [employer] account. 2. Select Appointments. 3. Select your [facility] Video Visit and tap Begin Visit. 4. [...] Starting 30 minutes prior to your scheduled [facility] Video Visit, you will find the link to connect tothe visit within your [employer] portal. 1. Sign into your [employer] account ([employer] portal link: [email or web address]). 2. On the top of the webpage, hover over Visits and select Appointments and Visits. 3. Click the Details button next to your [facility] video visit. 4. Click the Begin Video [...] att. providers found Primary Provider: Leila Manjarrez [phone] Hospital Day: Hospital Day: 27 Patient ID [...] [id number] Recent Labs 10/12/24 0004 10/10/24 2350 10/10/24 0044 CALCIUM 9.2 9.3 9.2 MAGNESIUM [...] Procedure Component Value - Date/Time Urine culture [[id number]] (Abnormal) (Susceptibility) Collected: 10/09/24 1043 Lab Status: [...] Susceptible Piperacillin/Tazobactam Susceptible Trimethoprim/Sulfa Susceptible COVID-19 PCR [[id number]] (Normal) Collected: 10/11/24 1626 Lab Status: Final result Specimen: Swab from Nasopharynx Updated: 10/11/24 1904 SARS-CoV-2 RNA (Rapid) Not Detected Imaging/EKG Results for orders placed or performed during the hospital encounter of 09/16/24 CT Head wo Contrast (Generic) (Exam End: 09/16/2024 5:26 PM) Result Value WORKSTATION ID [id number] Impression Interval expansion of now large right-sided [...] who have questions please contact the health cna caregiver that requested your imaging first. Head wo Contrast (Generic) (Exam End: 09/16/2024 11:21 PM) Result Value WORKSTATION ID [id number] Impression CT head: 1. Interval craniotomy with [...] who have questions please contact the health cna caregiver that requested your imaging first. Venogram Brain (Exam End: 09/16/2024 11:21 PM) Result Value WORKSTATION ID [id number] Impression CT head: 1. Interval craniotomy with [...] who have questions please contact the health cna caregiver that requested your imaging first. Chest One View (Exam End: 09/16/2024 11:00 PM) Result Value WORKSTATION ID [id number] Impression Satisfactorily positioned enteric and endotracheal tubes. Left lower lobe atelectasis versus pneumonia. Thank you for letting us participate in the care of this patient. If you are a health care provider and have any questions regarding this report, please contact the number below. For patients who have questions please contact the health cna caregiver that requested your imaging first. Abdomen 1 view (Generic) (Exam End: 09/16/2024 11:00 PM) Result Value WORKSTATION ID [id number] Impression Satisfactorily positioned enteric and endotracheal tubes. Left lower lobe atelectasis versus pneumonia. Thank you for letting us participate in the care of this patient. If you are a health care provider and have any questions regarding this report, please contact the number below. For patients who have questions please contact the health cna caregiver that requested your imaging first. Head wo Contrast (Generic) (Exam End: 09/17/2024 4:51 AM) Result Value WORKSTATION ID [id number] Impression Increased size and density of dominant [...] who have questions please contact the health cna caregiver that requested your imaging first. Chest One View (Exam End: 09/17/2024 2:13 PM) Result Value WORKSTATION ID [id number] Impression 1. No focal opacity in lung [...] who have questions please contact the health cna caregiver that requested your imaging first. Chest One View (Exam End: 09/18/2024 8:43 AM) Result Value WORKSTATION ID [id number] Impression Tubes and lines as described. Blunting of the left costophrenic angle suggests tiny layering left effusion with associated left basilar consolidation/atelectasis Thank you for letting us participate in the care of this patient. If you are a health care provider and have any questions regarding this report, please contact the number below. For patients who have questions please contact the health cna caregiver that requested your imaging first. Abdomen 1 view (Generic) (Exam End: 09/18/2024 12:31 PM) Result Value WORKSTATION ID [id number] Impression Dobbhoff tube tip along the greater curve of the stomach. Thank you for letting us participate in the care of this patient. If you are a health care provider and have any questions regarding this report, please contact the number below. For patients who have questions please contact the health cna caregiver that requested your imaging first. Brain wwo Contrast (Generic) (Exam End: 09/19/2024 5:43 PM) Result Value WORKSTATION ID [id number] Impression Unchanged size of large right cerebral hemisphere ICH status post partial evacuation. Numerous small foci of decreased acute infarction both along and separate from the site of hemorrhage. These foci are present in both cerebral hemispheres and have a pattern most consistent with embolic infarction. No evidence of LEADERSHIP COACH malignancy Thank you for letting us participate in the care of this patient. If you are a health care provider and have any questions regarding this report, please contact the number below. For patients who have questions please contact the health cna caregiver that requested your imaging first. Head wo Contrast (Generic) (Exam End: 09/21/2024 3:50 AM) Result Value WORKSTATION ID [id number] Impression Stable hemorrhage right temporal, parietal, right [...] who have questions please contact the health cna caregiver that requested your imaging first. Abdomen 1 view (Generic) (Exam End: 09/21/2024 2:01 PM) Result Value WORKSTATION ID [id number] Impression Dobbhoff tube and enteric tube sidehole [...] who have questions please contact the health cna caregiver that requested your imaging first. Chest One View (Exam End: 09/21/2024 2:01 PM) Result Value WORKSTATION ID [id number] Impression ET tube with tip projecting approximately [...] who have questions please contact the health cna caregiver that requested your imaging first. Head wo Contrast (Generic) (Exam End: 09/22/2024 4:02 AM) Result Value WORKSTATION ID [id number] Impression Stable head CT status post removal of subcutaneous drain. No new or enlarging hemorrhage. Stable pattern of mass effect Thank you for letting us participate in the care of this patient. If you are a health care provider and have any questions regarding this report, please contact the number below. For patients who have questions please contact the health cna caregiver that requested your imaging first. Angiogram Chest for Pulmonary Embolus w Contrast (Exam End: 09/26/2024 1:37 PM) Result Value WORKSTATION ID [id number] Impression 1. No pulmonary embolism. 2. Pulmonary [...] who have questions please contact the health cna caregiver that requested your imaging first. Head wo Contrast (Generic) (Exam End: 09/26/2024 1:37 PM) Result Value WORKSTATION ID [id number] Impression 1. Stable right-sided parenchymal and subdural [...] who have questions please contact the health cna caregiver that requested your imaging first. Abdomen & Pelvis w Contrast (Exam End: 09/26/2024 1:37 PM) Result Value WORKSTATION ID [id number] Impression 1. No pulmonary embolism. 2. Pulmonary [...] who have questions please contact the health cna caregiver that requested your imaging first. Chest One View (Exam End: 09/28/2024 4:06 AM) Result Value WORKSTATION ID [id number] Impression 1. Limited examination. 2. Interval removal [...] who have questions please contact the health cna caregiver that requested your imaging first. Electronically signed by: [facility] ([phone]), at 09/28/2024 4:12 AM XR Chest One View (Exam End: 09/28/2024 7:58 PM) Result Value WORKSTATION ID [id number] Impression 1. Slightly increased opacity in the [...] who have questions please contact the health cna caregiver that requested your imaging first. Chest One View (Exam End: 09/29/2024 1:13 PM) Result Value WORKSTATION ID [id number] Impression 1. Limited examination. 2. Stable position [...] who have questions please contact the health cna caregiver that requested your imaging first. Head wo Contrast (Generic) (Exam End: 10/04/2024 1:40 AM) Result Value WORKSTATION ID [id number] Impression 1. Overall interval improvement of the [...] who have questions please contact the health cna caregiver that requested your imaging first. Brain wwo Contrast (Generic) (Exam End: 10/04/2024 10:30 PM) Result Value WORKSTATION ID [id number] Impression 1. Fluid collections in the right [...] who have questions please contact the health cna caregiver that requested your imaging first. Chest One View (Exam End: 10/06/2024 10:59 AM) Result Value WORKSTATION ID [id number] Impression Improved but persistent retrocardiac patchy opacity [...] who have questions please contact the health cna caregiver that requested your imaging first. Fluoro Esophagram (Modified/Video Swallow Pharynx) (Exam End: 10/08/2024 4:10 PM) Result Value WORKSTATION ID [id number] Impression Abnormal modified barium swallow with silent [...] who have questions please contact the health cna caregiver that requested your imaging first. Head wo Contrast (Generic) (Exam End: 10/07/2024 3:25 PM) Result Value WORKSTATION ID [id number] Impression 1. Interval decreased prominence of RIGHT [...] who have questions please contact the health cna caregiver that requested your imaging first. SSMENT & PLAN Lucero Bruno 74 y.o. female [...] PRN #GI - >dysphagia - follow up TAG MARKER recs - Puree diet - Tube feeds [...] Other - Activity: as tolerated - Dispo: Residential facility - Last BM: Last Bowel Movement: 10/12/24 - code status: Attempt Cardiopulmonary Resuscitation - Inpatient Patient Lines/Drains/Airways Status Active Tubes/Lines/Drains Name Placement date Placement time Site Days Enterostomy Tube 10/04/24 1236 gastrostomy tube with balloon midline 10/04/24 1236 -- 8 Please page Vascular Neurology with any questions, #[id number] ADRIANA Aguirre Department of Neurology [place] [id number] Associated attestation - Karli Morales MD - [...] bleeding. Treating UTI, Trazodone for sleep. * Dheeraj Moreira - 10/12/2024 1:41 PM EST Channeler Encounter Note Patient Name: Lucero Bruno : [id number] MR#: [id number] Admit Date: 09/16/2024 10:06 AM Hospital Day 26 days Narrative:Follow-up visit for continued assessment and support. Assessment:Family coping positively with stresses of illness/hospitalization at this time. I met with patient family member and he shared that she is feeling better and hoping to go rehab then home. Intervention and Outcome:Provided emotional, spiritual support and listening presence. Channeler services accepted. Conversation to build trusting relationship. Provided pastoral presence. Provided spiritual guidance. Follow-up: yes Time in Direct Care:04 Mins Dheeraj Moreira 10/12/2024 * Latosha Winston RN - 10/12/2024 12:12 PM EST Report given via phone call to Rosalinda at approx [phone] * Anupama Pastrana RN - 10/12/2024 7:52 AM Bj: Physician Certificaton Statement for Non-emergency Ambulance Services Physician Certification Statement for Non-Emergency Ambulance Services Section I - General Information Lucero Bruno 1950 Medicare Number: [id number] Transport Date: 10/12/2024 (PCS is valid for round trips on this date and for all repetitive trips in the 60-day range as noted below.) [place]: [facility] Neuro Spec [id number] Destination: [facility] [address] [place] [address] Is the patient's stay covered under Medicare [...] van (i.e. seated during transport, without medical record consultant or monitoring?): No 4) In addition to [...] attending physician, this form was signed by Physician Liaison * Chet Cloud - 10/12/2024 7:41 AM EST Office of Care Management/Supervisor Dials Patient Name: Lucero Bruno : 1950 Patient has been offered a SNF bed at [facility] for today, 10/12/24 [facility] arranged for a 1330 transport. Ambulance will need: Medicare ambulance form completed and signed (MD or Armored Car Guard RN/BARREL LOADER AND CLEANER) Copy of patient demographics [place] Out of Hospital DNR/DNI order, if active No MD to MD report necessary Please call Nursing Report to and ask for A Wing costume director. Info to accompany patient: Copies of Medication Administration Records and IV sheets for past 10 days. Plan: Supervisor Dials will be available to the patient and Armored Car Guard-RN and/or Social Workerfor further assistance. Patient will be discharged to: [facility] Chet Cloud Supervisor Dials * Seth Avila - 10/11/2024 2:58 PM [...] Nutrition Recommendations: Puree diet, thin liquids per TAG MARKER 10/11. Continue bolus feeds of Nutren 1.5 [...] of this encounter: 77.6 kg (171 lb). Alden Body Weight (IBW) (kg): 45.45 Wt Readings [...] feeds. Order pended and team paged. 10/06: TAG MARKER continues to recommend NPO, per note 10/05. [...] VHP rather than Nutren 1.5, team aware. TAG MARKER continues to recommend NPO per 09/30 note. LBM 09/29, optimize regimen. Per EMR, pt with 4% wt loss in <1 week (196lbs on 09/24 to 188lbs on 09/28) which is clinically significant. Unable to complete full NFPE at this time. Planned for upcoming PEG placement. 09/29: TF Dc'd 09/28 @ 1835hr. TAG MARKER continues to recommend NPO, need for alternate [...] maxillary line): Not assessed Lean Muscle Loss Sabianism region (temporalis muscle): None present Clavicle bone [...] to continue to follow up while inpatient Thanks, Seth Avila, MS, RD, LD Clinical Nutrition * Areli Hathaway, TAG MARKER - 10/11/2024 2:17 PM EST Speech Therapy Note Patient Profile: Lucero Bruno is a 74 y.o. female with PMHx of A-fib, CHRISTOPHER, HLD, and prior IPH (04/2024) who [place] [facility] [place] for placement of Watchman with cardiology. She developed headaches and nausea post-operatively and was found to have a large R akgszhgg-zewptzq-btqnphhxj IPH, now s/p craniotomy. Patient was intubated from 09/16-09/21 with extubation complicated by stridor requiring re-intubation from 09/21-09/26 (11 days total). TAG MARKER has been following since 09/27 for communication [...] Comments Thin liquids X Water via straw Carlyss thick liquids Honey thick liquids Pureed solids [...] intake. Aubree's recent modified barium swallow revealed mwxt-sf-yzwuunjv oropharyngeal dysphagia with primary deficits including prolonged [...] assistance due to significant motor limitations. Diagnosis: Tgqe-ph-dpisttsc oropharyngeal dysphagia 2/2 IPH, dysphonia 2/2 IPH [...] instrumental swallow evaluation. MET Plan: Therapy Frequency (TAG MARKER Eval): 3-5 times/wk Patient is in agreement with the plan of care. Total Minutes (Speech Language Pathology): 40 Areli Hathaway MS, [facility]TAG MARKER Speech-Language Pathologist Inpatient Rehabilitation Pager # [phone] * Kymberly Baptiste, PT - 10/11/2024 10:01 AM EST Physical Therapy Note Treatment Number PT: 7 Patient profile: Lucero Bruno ( ) is a 74 y.o. 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 [...] plan as stated. Time IN / OUT: 4555-2542 Total Minutes, Physical Therapy: 24 Billing Code: TEF1 Kymberly Baptiste PT, DPT, NCS Pager: [phone] Physical Therapy Inpatient Rehabilitation Department * Lucie Caldera OT - 10/11/2024 9:36 AM EST Occupational Therapy Treatment Note Treatment Number OT: 6 Patient Dx:Lucero Bruno is a 74 y.o. female admitted on 09/16/2024. 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 Anticipated Discharge Disposition (OT): senior care facility Equipment Recommendations: Equipment Needs Upon Discharge [...] Minutes, Occupational Therapy: 26 (09:36-10:02 SCx2) Lucie Caldera, OTR/L Occupational Therapy Rehabilitation Department Pager # [phone] * Val Connor PA - 10/11/2024 9:13 AM EST Images from the original note were not included. VASCULAR NEUROLOGY DAILY PROGRESS NOTE Admit Date 09/16/2024 Responsible Attending: Karli Morales MD Primary Provider: Leila Manjarrez [phone] Hospital Day: Hospital Day: 26 Patient ID [...] ml Net -1260 ml Labs Recent Labs 10/10/24234910/10/244310/09/249 10/08/243 10/07/24 011 WBC 9.97* 10.15* 12.45* 11.43* 15.48* HGB 10.9* 11.3* 10.4* 10.0* 10.7* HCT 33.9* 34.7* 32.1* 31.2* 32.4* PLATELET 260 230 207 190 211 NEUTROABS 7.49* 7.26* 9.95* 9.01* 13.16* Recent Labs 10/10/24234910/10/244310/09/245810/08/2411210/07/24 011 NA 139 138 140 138 138 K [...] 09/16/2024 5:26 PM) Result Value WORKSTATION ID [id number] Impression Interval expansion of now large right-sided [...] who have questions please contact the health cna caregiver that requested your imaging first. Head wo Contrast (Generic) (Exam End: 09/16/2024 11:21 PM) Result Value WORKSTATION ID [id number] Impression CT head: 1. Interval craniotomy with [...] who have questions please contact the health cna caregiver that requested your imaging first. Venogram Brain (Exam End: 09/16/2024 11:21 PM) Result Value WORKSTATION ID [id number] Impression CT head: 1. Interval craniotomy with [...] who have questions please contact the health cna caregiver that requested your imaging first. Chest One View (Exam End: 09/16/2024 11:00 PM) Result Value WORKSTATION ID [id number] Impression Satisfactorily positioned enteric and endotracheal tubes. Left lower lobe atelectasis versus pneumonia. Thank you for letting us participate in the care of this patient. If you are a health care provider and have any questions regarding this report, please contact the number below. For patients who have questions please contact the health cna caregiver that requested your imaging first. Abdomen 1 view (Generic) (Exam End: 09/16/2024 11:00 PM) Result Value WORKSTATION ID [id number] Impression Satisfactorily positioned enteric and endotracheal tubes. Left lower lobe atelectasis versus pneumonia. Thank you for letting us participate in the care of this patient. If you are a health care provider and have any questions regarding this report, please contact the number below. For patients who have questions please contact the health cna caregiver that requested your imaging first. Head wo Contrast (Generic) (Exam End: 09/17/2024 4:51 AM) Result Value WORKSTATION ID [id number] Impression Increased size and density of dominant [...] who have questions please contact the health cna caregiver that requested your imaging first. Chest One View (Exam End: 09/17/2024 2:13 PM) Result Value WORKSTATION ID [id number] Impression 1. No focal opacity in lung [...] who have questions please contact the health cna caregiver that requested your imaging first. Chest One View (Exam End: 09/18/2024 8:43 AM) Result Value WORKSTATION ID [id number] Impression Tubes and lines as described. Blunting of the left costophrenic angle suggests tiny layering left effusion with associated left basilar consolidation/atelectasis Thank you for letting us participate in the care of this patient. If you are a health care provider and have any questions regarding this report, please contact the number below. For patients who have questions please contact the health cna caregiver that requested your imaging first. Abdomen 1 view (Generic) (Exam End: 09/18/2024 12:31 PM) Result Value WORKSTATION ID [id number] Impression Dobbhoff tube tip along the greater curve of the stomach. Thank you for letting us participate in the care of this patient. If you are a health care provider and have any questions regarding this report, please contact the number below. For patients who have questions please contact the health cna caregiver that requested your imaging first. Brain wwo Contrast (Generic) (Exam End: 09/19/2024 5:43 PM) Result Value WORKSTATION ID [id number] Impression Unchanged size of large right cerebral hemisphere ICH status post partial evacuation. Numerous small foci of decreased acute infarction both along and separate from the site of hemorrhage. These foci are present in both cerebral hemispheres and have a pattern most consistent with embolic infarction. No evidence of LEADERSHIP COACH malignancy Thank you for letting us participate in the care of this patient. If you are a health care provider and have any questions regarding this report, please contact the number below. For patients who have questions please contact the health cna caregiver that requested your imaging first. Head wo Contrast (Generic) (Exam End: 09/21/2024 3:50 AM) Result Value WORKSTATION ID [id number] Impression Stable hemorrhage right temporal, parietal, right [...] who have questions please contact the health cna caregiver that requested your imaging first. Abdomen 1 view (Generic) (Exam End: 09/21/2024 2:01 PM) Result Value WORKSTATION ID [id number] Impression Dobbhoff tube and enteric tube sidehole [...] who have questions please contact the health cna caregiver that requested your imaging first. Chest One View (Exam End: 09/21/2024 2:01 PM) Result Value WORKSTATION ID [id number] Impression ET tube with tip projecting approximately [...] who have questions please contact the health cna caregiver that requested your imaging first. Head wo Contrast (Generic) (Exam End: 09/22/2024 4:02 AM) Result Value WORKSTATION ID [id number] Impression Stable head CT status post removal of subcutaneous drain. No new or enlarging hemorrhage. Stable pattern of mass effect Thank you for letting us participate in the care of this patient. If you are a health care provider and have any questions regarding this report, please contact the number below. For patients who have questions please contact the health cna caregiver that requested your imaging first. Angiogram Chest for Pulmonary Embolus w Contrast (Exam End: 09/26/2024 1:37 PM) Result Value WORKSTATION ID [id number] Impression 1. No pulmonary embolism. 2. Pulmonary [...] who have questions please contact the health cna caregiver that requested your imaging first. Head wo Contrast (Generic) (Exam End: 09/26/2024 1:37 PM) Result Value WORKSTATION ID [id number] Impression 1. Stable right-sided parenchymal and subdural [...] who have questions please contact the health cna caregiver that requested your imaging first. Abdomen & Pelvis w Contrast (Exam End: 09/26/2024 1:37 PM) Result Value WORKSTATION ID [id number] Impression 1. No pulmonary embolism. 2. Pulmonary [...] who have questions please contact the health cna caregiver that requested your imaging first. Chest One View (Exam End: 09/28/2024 4:06 AM) Result Value WORKSTATION ID [id number] Impression 1. Limited examination. 2. Interval removal [...] who have questions please contact the health cna caregiver that requested your imaging first. Electronically signed by: [facility]cker [facility] ([phone]), at 09/28/2024 4:12 AM XR Chest One View (Exam End: 09/28/2024 7:58 PM) Result Value WORKSTATION ID [id number] Impression 1. Slightly increased opacity in the [...] who have questions please contact the health cna caregiver that requested your imaging first. Electronically signed by: Sammy Story [facility] ([phone]), at 09/28/2024 8:09 PM XR Chest One View (Exam End: 09/29/2024 1:13 PM) Result Value WORKSTATION ID [id number] Impression 1. Limited examination. 2. Stable position [...] who have questions please contact the health cna caregiver that requested your imaging first. Electronically signed by: [facility]cker [facility] ([phone]), at 09/30/2024 12:[address] Head wo Contrast (Generic) (Exam End: 10/04/2024 1:40 AM) Result Value WORKSTATION ID [id number] Impression 1. Overall interval improvement of the [...] who have questions please contact the health cna caregiver that requested your imaging first. Brain wwo Contrast (Generic) (Exam End: 10/04/2024 10:30 PM) Result Value WORKSTATION ID [id number] Impression 1. Fluid collections in the right [...] who have questions please contact the health cna caregiver that requested your imaging first. Chest One View (Exam End: 10/06/2024 10:59 AM) Result Value WORKSTATION ID [id number] Impression Improved but persistent retrocardiac patchy opacity [...] who have questions please contact the health cna caregiver that requested your imaging first. Fluoro Esophagram (Modified/Video Swallow Pharynx) (Exam End: 10/08/2024 4:10 PM) Result Value WORKSTATION ID [id number] Impression Abnormal modified barium swallow with silent [...] who have questions please contact the health cna caregiver that requested your imaging first. Head wo Contrast (Generic) (Exam End: 10/07/2024 3:25 PM) Result Value WORKSTATION ID [id number] Impression 1. Interval decreased prominence of RIGHT [...] who have questions please contact the health cna caregiver that requested your imaging first. SSMENT & PLAN Lucero Florence Bruno 74 y.o. female with PMHx RIGHT occipital hemorrhage, chronic a-fib presented for watchman procedure. Patient developed headache after procedure and was taken to CT where she was found to have RIGHT IPH with mass effect and midline shift s/p craniotomy. CAA confirmed by surgical path 10/11/24-Lucero Florence Damion is neurologically stable, working on titrating pain [...] PRN #GI - >dysphagia - follow up TAG MARKER recs - Sips and Chips (Hold Meds) [...] Other - Activity: as tolerated - Dispo: Residential facility - Last BM: Last Bowel Movement: [...] Please page Vascular Neurology with any questions, #[phone] ADRIANA Aguirre Department of Neurology [place] [id number] Associated attestation - Karli Morales MD - [...] Karli Morales MD Primary Provider: Leila Manjarrez [phone] Hospital Day: Hospital Day: 25 Patient ID [...] ml Net -470 ml Labs Recent Labs 10/10/24 0044 10/09/245810/08/24 0113 10/07/24 0112 10/06/24 0033 WBC 10.15* 12.45* 11.43* 15.48* 16.59* HGB 11.3* 10.4* 10.0* 10.7* 10.8* HCT 34.7* 32.1* 31.2* 32.4* 32.9* PLATELET 230 207 190 211 237 NEUTROABS 7.26* 9.95* 9.01* 13.16* 14.40* Recent Labs 10/10/24 0044 10/09/24 0059 10/08/24 0113 10/07/24 0112 10/06/24 0033 NA 138 140 138 138 138 K 4.2 4.2 4.4 4.0 4.3 CL 101 102 104 102 101 CO2 26 28 27 27 26 BUN 22* 25* 26* 17 21* CREATININE 0.34* 0.36* 0.39* 0.36* 0.45* GLUCOSE 195 159 186 190 211* Recent Labs 10/10/24 0044 10/09/24 0059 10/08/24 0113 CALCIUM 9.2 9.5 8.9 MAGNESIUM 0.78 0.81 [...] 09/16/2024 5:26 PM) Result Value WORKSTATION ID [id number] Impression Interval expansion of now large right-sided [...] who have questions please contact the health cna caregiver that requested your imaging first. Head wo Contrast (Generic) (Exam End: 09/16/2024 11:21 PM) Result Value WORKSTATION ID [id number] Impression CT head: 1. Interval craniotomy with [...] who have questions please contact the health cna caregiver that requested your imaging first. Venogram Brain (Exam End: 09/16/2024 11:21 PM) Result Value WORKSTATION ID [id number] Impression CT head: 1. Interval craniotomy with [...] who have questions please contact the health cna caregiver that requested your imaging first. Chest One View (Exam End: 09/16/2024 11:00 PM) Result Value WORKSTATION ID [id number] Impression Satisfactorily positioned enteric and endotracheal tubes. Left lower lobe atelectasis versus pneumonia. Thank you for letting us participate in the care of this patient. If you are a health care provider and have any questions regarding this report, please contact the number below. For patients who have questions please contact the health cna caregiver that requested your imaging first. Abdomen 1 view (Generic) (Exam End: 09/16/2024 11:00 PM) Result Value WORKSTATION ID [id number] Impression Satisfactorily positioned enteric and endotracheal tubes. Left lower lobe atelectasis versus pneumonia. Thank you for letting us participate in the care of this patient. If you are a health care provider and have any questions regarding this report, please contact the number below. For patients who have questions please contact the health cna caregiver that requested your imaging first. Head wo Contrast (Generic) (Exam End: 09/17/2024 4:51 AM) Result Value WORKSTATION ID [id number] Impression Increased size and density of dominant [...] who have questions please contact the health cna caregiver that requested your imaging first. Chest One View (Exam End: 09/17/2024 2:13 PM) Result Value WORKSTATION ID [id number] Impression 1. No focal opacity in lung [...] who have questions please contact the health cna caregiver that requested your imaging first. Chest One View (Exam End: 09/18/2024 8:43 AM) Result Value WORKSTATION ID [id number] Impression Tubes and lines as described. Blunting of the left costophrenic angle suggests tiny layering left effusion with associated left basilar consolidation/atelectasis Thank you for letting us participate in the care of this patient. If you are a health care provider and have any questions regarding this report, please contact the number below. For patients who have questions please contact the health cna caregiver that requested your imaging first. Abdomen 1 view (Generic) (Exam End: 09/18/2024 12:31 PM) Result Value WORKSTATION ID [id number] Impression Dobbhoff tube tip along the greater curve of the stomach. Thank you for letting us participate in the care of this patient. If you are a health care provider and have any questions regarding this report, please contact the number below. For patients who have questions please contact the health cna caregiver that requested your imaging first. Brain wwo Contrast (Generic) (Exam End: 09/19/2024 5:43 PM) Result Value WORKSTATION ID [id number] Impression Unchanged size of large right cerebral hemisphere ICH status post partial evacuation. Numerous small foci of decreased acute infarction both along and separate from the site of hemorrhage. These foci are present in both cerebral hemispheres and have a pattern most consistent with embolic infarction. No evidence of LEADERSHIP COACH malignancy Thank you for letting us participate in the care of this patient. If you are a health care provider and have any questions regarding this report, please contact the number below. For patients who have questions please contact the health cna caregiver that requested your imaging first. Head wo Contrast (Generic) (Exam End: 09/21/2024 3:50 AM) Result Value WORKSTATION ID [id number] Impression Stable hemorrhage right temporal, parietal, right [...] who have questions please contact the health cna caregiver that requested your imaging first. Abdomen 1 view (Generic) (Exam End: 09/21/2024 2:01 PM) Result Value WORKSTATION ID [id number] Impression Dobbhoff tube and enteric tube sidehole [...] who have questions please contact the health cna caregiver that requested your imaging first. Chest One View (Exam End: 09/21/2024 2:01 PM) Result Value WORKSTATION ID [id number] Impression ET tube with tip projecting approximately [...] who have questions please contact the health cna caregiver that requested your imaging first. Head wo Contrast (Generic) (Exam End: 09/22/2024 4:02 AM) Result Value WORKSTATION ID [id number] Impression Stable head CT status post removal of subcutaneous drain. No new or enlarging hemorrhage. Stable pattern of mass effect Thank you for letting us participate in the care of this patient. If you are a health care provider and have any questions regarding this report, please contact the number below. For patients who have questions please contact the health cna caregiver that requested your imaging first. Angiogram Chest for Pulmonary Embolus w Contrast (Exam End: 09/26/2024 1:37 PM) Result Value WORKSTATION ID [id number] Impression 1. No pulmonary embolism. 2. Pulmonary [...] who have questions please contact the health cna caregiver that requested your imaging first. Head wo Contrast (Generic) (Exam End: 09/26/2024 1:37 PM) Result Value WORKSTATION ID [id number] Impression 1. Stable right-sided parenchymal and subdural [...] who have questions please contact the health cna caregiver that requested your imaging first. Abdomen & Pelvis w Contrast (Exam End: 09/26/2024 1:37 PM) Result Value WORKSTATION ID [id number] Impression 1. No pulmonary embolism. 2. Pulmonary [...] who have questions please contact the health cna caregiver that requested your imaging first. Chest One View (Exam End: 09/28/2024 4:06 AM) Result Value WORKSTATION ID [id number] Impression 1. Limited examination. 2. Interval removal [...] who have questions please contact the health cna caregiver that requested your imaging first. Chest One View (Exam End: 09/28/2024 7:58 PM) Result Value WORKSTATION ID [id number] Impression 1. Slightly increased opacity in the [...] who have questions please contact the health cna caregiver that requested your imaging first. Chest One View (Exam End: 09/29/2024 1:13 PM) Result Value WORKSTATION ID [id number] Impression 1. Limited examination. 2. Stable position [...] who have questions please contact the health cna caregiver that requested your imaging first. Head wo Contrast (Generic) (Exam End: 10/04/2024 1:40 AM) Result Value WORKSTATION ID [id number] Impression 1. Overall interval improvement of the [...] who have questions please contact the health cna caregiver that requested your imaging first. Brain wwo Contrast (Generic) (Exam End: 10/04/2024 10:30 PM) Result Value WORKSTATION ID [id number] Impression 1. Fluid collections in the right [...] who have questions please contact the health cna caregiver that requested your imaging first. Chest One View (Exam End: 10/06/2024 10:59 AM) Result Value WORKSTATION ID [id number] Impression Improved but persistent retrocardiac patchy opacity [...] who have questions please contact the health cna caregiver that requested your imaging first. Fluoro Esophagram (Modified/Video Swallow Pharynx) (Exam End: 10/08/2024 4:10 PM) Result Value WORKSTATION ID [id number] Impression Abnormal modified barium swallow with silent [...] who have questions please contact the health cna caregiver that requested your imaging first. Head wo Contrast (Generic) (Exam End: 10/07/2024 3:25 PM) Result Value WORKSTATION ID [id number] Impression 1. Interval decreased prominence of RIGHT [...] who have questions please contact the health cna caregiver that requested your imaging first. SSMENT & PLAN Lucero Bruno 74 y.o. female [...] PRN #GI - >dysphagia - follow up TAG MARKER recs - Sips and Chips (Hold Meds) [...] Other - Activity: as tolerated - Dispo: Residential facility - Last BM: Last Bowel Movement: [...] Please page Vascular Neurology with any questions, #[id number] ADRIANA JONAS Department [place] [address] Associated attestation - Karli Morales [...] Karli Morales MD Primary Provider: Leila Manjarrez [phone] Hospital Day: Hospital Day: 24 Patient ID [...] ml Net -230 ml Labs Recent Labs 10/09/245810/08/2411210/07/24 0112 10/06/24 0033 10/05/24 0008 WBC 12.45* 11.43* 15.48* 16.59* 13.56* HGB 10.4* 10.0* 10.7* 10.8* 10.8* HCT 32.1* 31.2* 32.4* 32.9* 33.5* PLATELET 207 190 211 237 241 NEUTROABS 9.95* 9.01* 13.16* 14.40* 11.69* Recent Labs 10/09/245810/08/2411210/07/24 0112 10/06/24 0033 10/05/24 0008 NA 140 138 138 138 139 K 4.2 4.4 4.0 4.3 4.2 CL 102 104 102 101 103 CO2 28 27 27 26 29 BUN 25* 26* 17 21* 24* CREATININE 0.36* 0.39* 0.36* 0.45* 0.36* GLUCOSE 159 186 190 211* 136 Recent Labs 10/09/245810/08/2411210/07/24111 CALCIUM 9.5 8.9 9.0 MAGNESIUM 0.81 0.79 [...] 09/16/2024 5:26 PM) Result Value WORKSTATION ID [id number] Impression Interval expansion of now large right-sided [...] who have questions please contact the health cna caregiver that requested your imaging first. Head wo Contrast (Generic) (Exam End: 09/16/2024 11:21 PM) Result Value WORKSTATION ID [id number] Impression CT head: 1. Interval craniotomy with [...] who have questions please contact the health cna caregiver that requested your imaging first. Venogram Brain (Exam End: 09/16/2024 11:21 PM) Result Value WORKSTATION ID [id number] Impression CT head: 1. Interval craniotomy with [...] who have questions please contact the health cna caregiver that requested your imaging first. Chest One View (Exam End: 09/16/2024 11:00 PM) Result Value WORKSTATION ID [id number] Impression Satisfactorily positioned enteric and endotracheal tubes. Left lower lobe atelectasis versus pneumonia. Thank you for letting us participate in the care of this patient. If you are a health care provider and have any questions regarding this report, please contact the number below. For patients who have questions please contact the health cna caregiver that requested your imaging first. Abdomen 1 view (Generic) (Exam End: 09/16/2024 11:00 PM) Result Value WORKSTATION ID [id number] Impression Satisfactorily positioned enteric and endotracheal tubes. Left lower lobe atelectasis versus pneumonia. Thank you for letting us participate in the care of this patient. If you are a health care provider and have any questions regarding this report, please contact the number below. For patients who have questions please contact the health cna caregiver that requested your imaging first. Head wo Contrast (Generic) (Exam End: 09/17/2024 4:51 AM) Result Value WORKSTATION ID [id number] Impression Increased size and density of dominant [...] who have questions please contact the health cna caregiver that requested your imaging first. Chest One View (Exam End: 09/17/2024 2:13 PM) Result Value WORKSTATION ID [id number] Impression 1. No focal opacity in lung [...] who have questions please contact the health cna caregiver that requested your imaging first. Chest One View (Exam End: 09/18/2024 8:43 AM) Result Value WORKSTATION ID [id number] Impression Tubes and lines as described. Blunting of the left costophrenic angle suggests tiny layering left effusion with associated left basilar consolidation/atelectasis Thank you for letting us participate in the care of this patient. If you are a health care provider and have any questions regarding this report, please contact the number below. For patients who have questions please contact the health cna caregiver that requested your imaging first. Abdomen 1 view (Generic) (Exam End: 09/18/2024 12:31 PM) Result Value WORKSTATION ID [id number] Impression Dobbhoff tube tip along the greater curve of the stomach. Thank you for letting us participate in the care of this patient. If you are a health care provider and have any questions regarding this report, please contact the number below. For patients who have questions please contact the health cna caregiver that requested your imaging first. Brain wwo Contrast (Generic) (Exam End: 09/19/2024 5:43 PM) Result Value WORKSTATION ID [id number] Impression Unchanged size of large right cerebral hemisphere ICH status post partial evacuation. Numerous small foci of decreased acute infarction both along and separate from the site of hemorrhage. These foci are present in both cerebral hemispheres and have a pattern most consistent with embolic infarction. No evidence of LEADERSHIP COACH malignancy Thank you for letting us participate in the care of this patient. If you are a health care provider and have any questions regarding this report, please contact the number below. For patients who have questions please contact the health cna caregiver that requested your imaging first. Head wo Contrast (Generic) (Exam End: 09/21/2024 3:50 AM) Result Value WORKSTATION ID [id number] Impression Stable hemorrhage right temporal, parietal, right [...] who have questions please contact the health cna caregiver that requested your imaging first. Abdomen 1 view (Generic) (Exam End: 09/21/2024 2:01 PM) Result Value WORKSTATION ID [id number] Impression Dobbhoff tube and enteric tube sidehole [...] who have questions please contact the health cna caregiver that requested your imaging first. Chest One View (Exam End: 09/21/2024 2:01 PM) Result Value WORKSTATION ID [id number] Impression ET tube with tip projecting approximately [...] who have questions please contact the health cna caregiver that requested your imaging first. Head wo Contrast (Generic) (Exam End: 09/22/2024 4:02 AM) Result Value WORKSTATION ID [id number] Impression Stable head CT status post removal of subcutaneous drain. No new or enlarging hemorrhage. Stable pattern of mass effect Thank you for letting us participate in the care of this patient. If you are a health care provider and have any questions regarding this report, please contact the number below. For patients who have questions please contact the health cna caregiver that requested your imaging first. Angiogram Chest for Pulmonary Embolus w Contrast (Exam End: 09/26/2024 1:37 PM) Result Value WORKSTATION ID [id number] Impression 1. No pulmonary embolism. 2. Pulmonary [...] who have questions please contact the health cna caregiver that requested your imaging first. Head wo Contrast (Generic) (Exam End: 09/26/2024 1:37 PM) Result Value WORKSTATION ID [id number] Impression 1. Stable right-sided parenchymal and subdural [...] who have questions please contact the health cna caregiver that requested your imaging first. Abdomen & Pelvis w Contrast (Exam End: 09/26/2024 1:37 PM) Result Value WORKSTATION ID [id number] Impression 1. No pulmonary embolism. 2. Pulmonary [...] who have questions please contact the health cna caregiver that requested your imaging first. Chest One View (Exam End: 09/28/2024 4:06 AM) Result Value WORKSTATION ID [id number] Impression 1. Limited examination. 2. Interval removal [...] who have questions please contact the health cna caregiver that requested your imaging first. Chest One View (Exam End: 09/28/2024 7:58 PM) Result Value WORKSTATION ID [id number] Impression 1. Slightly increased opacity in the [...] who have questions please contact the health cna caregiver that requested your imaging first. Chest One View (Exam End: 09/29/2024 1:13 PM) Result Value WORKSTATION ID [id number] Impression 1. Limited examination. 2. Stable position [...] who have questions please contact the health cna caregiver that requested your imaging first. Head wo Contrast (Generic) (Exam End: 10/04/2024 1:40 AM) Result Value WORKSTATION ID [id number] Impression 1. Overall interval improvement of the [...] who have questions please contact the health cna caregiver that requested your imaging first. Brain wwo Contrast (Generic) (Exam End: 10/04/2024 10:30 PM) Result Value WORKSTATION ID [id number] Impression 1. Fluid collections in the right [...] who have questions please contact the health cna caregiver that requested your imaging first. Electronically signed by: Armando Pan [facility] ([phone]), at 10/05/2024 12:31 AM XR Chest One View (Exam End: 10/06/2024 10:59 AM) Result Value WORKSTATION ID [id number] Impression Improved but persistent retrocardiac patchy opacity [...] who have questions please contact the health cna caregiver that requested your imaging first. Fluoro Esophagram (Modified/Video Swallow Pharynx) (Exam End: 10/08/2024 4:10 PM) Result Value WORKSTATION ID [id number] Impression Abnormal modified barium swallow with silent [...] who have questions please contact the health cna caregiver that requested your imaging first. Head wo Contrast (Generic) (Exam End: 10/07/2024 3:25 PM) Result Value WORKSTATION ID [id number] Impression 1. Interval decreased prominence of RIGHT [...] who have questions please contact the health cna caregiver that requested your imaging first. SSMENT & PLAN Lucero J Damion 74 y.o. female with PMHx RIGHT occipital hemorrhage, chronic a-fib presented for watchman procedure. Patient developed headache after procedure and was taken to CT where she was found to have RIGHT IPH with mass effect and midline shift s/p craniotomy. 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 Course complicated by dysphagia requiring PEG tube placement. 10/09/24-Lucero Bruno is neurologically stable, deficits include left [...] PRN #GI - >dysphagia - follow up TAG MARKER recs - Sips and Chips (Hold Meds) [...] Other - Activity: as tolerated - Dispo: Residential facility - Last BM: Last Bowel Movement: [...] Please page Vascular Neurology with any questions, #[id number] ADRIANA JONAS Department [place] [address] Associated attestation - Karli Morales [...] rehab and SNF placement * Areli Hathaway, TAG MARKER - 10/08/2024 3:18 PM EST Speech-Language Pathology Modified Barium Swallow Evaluation Patient Profile: Lucero Bruno is a 74 y.o. female with PMHx of A-fib, CHRISTOPHER, HLD, and prior IPH (04/2024) who [place] [facility] [place] for placement of Watchman with cardiology. She developed headaches and nausea post-operatively and was found to have a large R wznsndbw-owsyhmb-qwbxopdbb IPH, now s/p craniotomy. Patient was intubated from 09/16-09/21 with extubation complicated by stridor requiring re-intubation from 09/21-09/26 (11 days total). TAG MARKER has been following since 09/27 for communication [...] Secretion Management X Bolus Presentations: Thin liquid Carlyss thick liquid Puree Soft solid Oral Preparatory [...] for clearing oropharyngeal residue Penetration-Aspiration Scale (PAS; Michelle Hussein et al., 1996) 1 = no material [...] to assess oropharyngeal swallow function following R qtiuhmb-fxsiebs-urkwfmzux IPH (09/16). Oral motor examination revealed interval improvements in orofacial agility and coordination, though her movements remain sluggish and effortful. Her speech intelligibility has improved alongside improvements in orofacial control. Aubree required physical assistance and frequent repositioning to maintain upright posture throughout this study due to left-sided weakness and inattention. Imaging revealed hejl-io-zjlegylk oropharyngeal dysphagia. Aubree's oral phase was efficient and timely with liquids but prolonged and disorganized with reduced lingual propulsion of purees and soft solids requiring intermittent cues to clear the oral cavity. Aubree's pharyngeal swallow was characterized by varying timeliness, decreased epiglottic inversion likely related to decreased anterior hyolaryngeal excursion, and decreased pharyngeal constriction leading to duje-uz-clljiwbt residue with purees and soft solids. Aubree [...] follow and trial more advanced consistencies. Diagnosis: Piqn-ef-ohvdgkjr oropharyngeal dysphagia 2/2 IPH, dysphonia 2/2 IPH [...] instrumental swallow evaluation. MET Plan: Therapy Frequency (TAG MARKER Eval): 3-5 times/wk Patient is in agreement with the plan of care. Total Minutes (Speech Language Pathology): 20 (clinical) + 60 (MBS) = 80 Thanks for the opportunity to contribute to this patient's care. Please feel free to page me with any questions or concerns. Areli Hathaway MS, [facility]TAG MARKER Speech-Language Pathologist Inpatient Rehabilitation Pager # [phone] * Anupama Pastrana RN - 10/08/2024 12:36 PM ESTSummary: [facility] SNF choice/expanded Based on discussions with the multi-disciplinary healthcare team, the patient would benefit from SNF level of care at discharge. I have met with the patient and district representative son Don Pollard to: discuss discharge planning needs. provide the [facility], Office of Care Management letter from the [employer]ruitment [employer] pertaining to rehab referrals. provide a letter describing our affiliations within the [facility] and educate about their right to choose where referrals are sent. provide the [facility] Star Quality Rating handout. review the different levels of rehab including SNF, swing, and acute. provide a list of facilities within their preferred geographic area. request that they provide at least three choices for referral. They have requested referrals to: [facility] (LTC Only) [address] [place] [address] [facility] [address] [place] [address] [address] [facility] [address] [place] [id number] Note routed to a Supervisor Dials who will communicate referrals to facilities and provide any required information. Anupama Pastrana, MSN, RN ACM-RN [facility] golf course patroller * Anitra Ruiz DO - 10/08/2024 7:26 AM EST Images from the original note were not included. VASCULAR NEUROLOGY DAILY PROGRESS NOTE Admit Date 09/16/2024 Responsible Attending: Karli Morales MD Primary Provider: Leila Manjarrez [phone] Hospital Day: Hospital Day: 23 Patient ID [...] tube feed regimen to boluses yesterday - CHAVEZ CARRASCO - This morning [...] Piggyback:2] Out: 1050 [Urine:1050] Labs Recent Labs 10/08/2411210/07/2411110/06/243 10/05/24 0008 10/04/24 0029 WBC 11.43* 15.48* 16.59* 13.56* 14.67* HGB 10.0* 10.7* 10.8* 10.8* 10.4* HCT 31.2* 32.4* 32.9* 33.5* 32.8* PLATELET 190 211 237 241 303 NEUTROABS 9.01* 13.16* 14.40* 11.69* 12.52* Recent Labs 10/08/2411210/07/2411110/06/243 10/05/24 0008 10/04/24 0029 NA 138 138 138 139 142 K 4.4 4.0 4.3 4.2 4.1 CL 104 102 101 103 106 CO2 27 27 26 29 26 BUN 26* 17 21* 24* 24* CREATININE 0.39* 0.36* 0.45* 0.36* 0.36* GLUCOSE 186 190 211* 136 166 Recent Labs 10/08/2411210/07/2411110/06/2432 CALCIUM 8.9 9.0 9.0 MAGNESIUM 0.79 0.72 [...] Procedure Component Value - Date/Time Blood culture [[id number]] Collected: 09/26/24 1442 Lab Status: Final result Specimen: Blood, Venous Updated: 10/01/24 1602 Blood Culture No growth at 120 hours Blood culture [[id number]] Collected: 09/26/24 1453 Lab Status: Final result Specimen: Blood, Venous Updated: 10/01/24 1602 Blood Culture No growth at 120 hours Imaging/EKG Results for orders placed or performed during the hospital encounter of 09/16/24 CT Head wo Contrast (Generic) (Exam End: 09/16/2024 5:26 PM) Result Value WORKSTATION ID [id number] Impression Interval expansion of now large right-sided [...] who have questions please contact the health cna caregiver that requested your imaging first. Head wo Contrast (Generic) (Exam End: 09/16/2024 11:21 PM) Result Value WORKSTATION ID [id number] Impression CT head: 1. Interval craniotomy with [...] who have questions please contact the health cna caregiver that requested your imaging first. Venogram Brain (Exam End: 09/16/2024 11:21 PM) Result Value WORKSTATION ID [id number] Impression CT head: 1. Interval craniotomy with [...] who have questions please contact the health cna caregiver that requested your imaging first. Chest One View (Exam End: 09/16/2024 11:00 PM) Result Value WORKSTATION ID [id number] Impression Satisfactorily positioned enteric and endotracheal tubes. Left lower lobe atelectasis versus pneumonia. Thank you for letting us participate in the care of this patient. If you are a health care provider and have any questions regarding this report, please contact the number below. For patients who have questions please contact the health cna caregiver that requested your imaging first. Abdomen 1 view (Generic) (Exam End: 09/16/2024 11:00 PM) Result Value WORKSTATION ID [id number] Impression Satisfactorily positioned enteric and endotracheal tubes. Left lower lobe atelectasis versus pneumonia. Thank you for letting us participate in the care of this patient. If you are a health care provider and have any questions regarding this report, please contact the number below. For patients who have questions please contact the health cna caregiver that requested your imaging first. Electronically signed by: Pamela Beard [facility] ([phone]), at 09/17/2024 12:[address] Head wo Contrast (Generic) (Exam End: 09/17/2024 4:51 AM) Result Value WORKSTATION ID [id number] Impression Increased size and density of dominant [...] who have questions please contact the health cna caregiver that requested your imaging first. Chest One View (Exam End: 09/17/2024 2:13 PM) Result Value WORKSTATION ID [id number] Impression 1. No focal opacity in lung [...] who have questions please contact the health cna caregiver that requested your imaging first. Chest One View (Exam End: 09/18/2024 8:43 AM) Result Value WORKSTATION ID [id number] Impression Tubes and lines as described. Blunting of the left costophrenic angle suggests tiny layering left effusion with associated left basilar consolidation/atelectasis Thank you for letting us participate in the care of this patient. If you are a health care provider and have any questions regarding this report, please contact the number below. For patients who have questions please contact the health cna caregiver that requested your imaging first. Abdomen 1 view (Generic) (Exam End: 09/18/2024 12:31 PM) Result Value WORKSTATION ID [id number] Impression Dobbhoff tube tip along the greater curve of the stomach. Thank you for letting us participate in the care of this patient. If you are a health care provider and have any questions regarding this report, please contact the number below. For patients who have questions please contact the health cna caregiver that requested your imaging first. Brain wwo Contrast (Generic) (Exam End: 09/19/2024 5:43 PM) Result Value WORKSTATION ID [id number] Impression Unchanged size of large right cerebral hemisphere ICH status post partial evacuation. Numerous small foci of decreased acute infarction both along and separate from the site of hemorrhage. These foci are present in both cerebral hemispheres and have a pattern most consistent with embolic infarction. No evidence of LEADERSHIP COACH malignancy Thank you for letting us participate in the care of this patient. If you are a health care provider and have any questions regarding this report, please contact the number below. For patients who have questions please contact the health cna caregiver that requested your imaging first. Head wo Contrast (Generic) (Exam End: 09/21/2024 3:50 AM) Result Value WORKSTATION ID [id number] Impression Stable hemorrhage right temporal, parietal, right [...] who have questions please contact the health cna caregiver that requested your imaging first. Abdomen 1 view (Generic) (Exam End: 09/21/2024 2:01 PM) Result Value WORKSTATION ID [id number] Impression Dobbhoff tube and enteric tube sidehole [...] who have questions please contact the health cna caregiver that requested your imaging first. Chest One View (Exam End: 09/21/2024 2:01 PM) Result Value WORKSTATION ID [id number] Impression ET tube with tip projecting approximately [...] who have questions please contact the health cna caregiver that requested your imaging first. Head wo Contrast (Generic) (Exam End: 09/22/2024 4:02 AM) Result Value WORKSTATION ID [id number] Impression Stable head CT status post removal of subcutaneous drain. No new or enlarging hemorrhage. Stable pattern of mass effect Thank you for letting us participate in the care of this patient. If you are a health care provider and have any questions regarding this report, please contact the number below. For patients who have questions please contact the health cna caregiver that requested your imaging first. Angiogram Chest for Pulmonary Embolus w Contrast (Exam End: 09/26/2024 1:37 PM) Result Value WORKSTATION ID [id number] Impression 1. No pulmonary embolism. 2. Pulmonary [...] who have questions please contact the health cna caregiver that requested your imaging first. Head wo Contrast (Generic) (Exam End: 09/26/2024 1:37 PM) Result Value WORKSTATION ID [id number] Impression 1. Stable right-sided parenchymal and subdural [...] who have questions please contact the health cna caregiver that requested your imaging first. Abdomen & Pelvis w Contrast (Exam End: 09/26/2024 1:37 PM) Result Value WORKSTATION ID [id number] Impression 1. No pulmonary embolism. 2. Pulmonary [...] who have questions please contact the health cna caregiver that requested your imaging first. Electronically signed by: [facility] ([phone]), at 09/26/2024 1:54 PM XR Chest One View (Exam End: 09/28/2024 4:06 AM) Result Value WORKSTATION ID [id number] Impression 1. Limited examination. 2. Interval removal [...] who have questions please contact the health cna caregiver that requested your imaging first. Electronically signed by: [facility] ([phone]), at 09/28/2024 4:12 AM XR Chest One View (Exam End: 09/28/2024 7:58 PM) Result Value WORKSTATION ID [id number] Impression 1. Slightly increased opacity in the [...] who have questions please contact the health cna caregiver that requested your imaging first. Chest One View (Exam End: 09/29/2024 1:13 PM) Result Value WORKSTATION ID [id number] Impression 1. Limited examination. 2. Stable position [...] who have questions please contact the health cna caregiver that requested your imaging first. Head wo Contrast (Generic) (Exam End: 10/04/2024 1:40 AM) Result Value WORKSTATION ID [id number] Impression 1. Overall interval improvement of the [...] who have questions please contact the health cna caregiver that requested your imaging first. Brain wwo Contrast (Generic) (Exam End: 10/04/2024 10:30 PM) Result Value WORKSTATION ID [id number] Impression 1. Fluid collections in the right [...] who have questions please contact the health cna caregiver that requested your imaging first. Chest One View (Exam End: 10/06/2024 10:59 AM) Result Value WORKSTATION ID [id number] Impression Improved but persistent retrocardiac patchy opacity [...] who have questions please contact the health cna caregiver that requested your imaging first. Head wo Contrast (Generic) (Exam End: 10/07/2024 3:25 PM) Result Value WORKSTATION ID [id number] Impression 1. Interval decreased prominence of RIGHT [...] who have questions please contact the health cna caregiver that requested your imaging first. SSMENT & PLAN Lucero Bruno 74 y.o. female [...] PRN #GI - >dysphagia - follow up TAG MARKER recs - NPO diet (Give Meds) - [...] Other - Activity: as tolerated - Dispo: Residential facility - Last BM: Last Bowel Movement: [...] Please page Vascular Neurology with any questions, #[phone] Anitra Ruiz DO Department of Neurology [place] [id number] Associated attestation - Karli Morales MD - [...] Dheeraj Moreira - 10/07/2024 3:56 PM EST Channeler Encounter Note Patient Name: Lucero Bruno : [id number] MR#: [id number] Admit Date: 09/16/2024 10:06 AM Hospital Day 21 days Narrative:Follow-up visit for continued assessment and support. Assessment:Family coping positively with stresses of illness/hospitalization at this time. I met with patient boy friend and he was happy that she is getting better day and he was happy about all progress. Intervention and Outcome:Provided emotional, spiritual support and listening presence. Channeler services accepted. Conversation to build trusting relationship. Provided pastoral presence. Provided spiritual guidance. Follow-up: yes Time in Direct Care:04 Mins Dheeraj Moreira 10/07/2024 * Areli Hathaway SLP - 10/07/2024 1:29 PM EST Speech Therapy Note Patient Profile: Lucero Bruno is a 74 y.o. female with PMHx of A-fib, CHRISTOPHER, HLD, and prior IPH (04/2024) who [place] [facility] [place] placement of Watchman with cardiology. She developed headaches and nausea post-operatively and was found to have a large R drzhsmzr-hrwkkex-mpruhedpq IPH, now s/p craniotomy. Patient was intubated from 09/16-09/21 with extubation complicated by stridor requiring re-intubation from 09/21-09/26 (11 days total). TAG MARKER has been following since 09/27 for communication [...] X Bolus Presentation(s): Tested Comments Thin liquids Carlyss thick liquids Honey thick liquids Pureed solids Dysphagia soft Mechanical soft Regular solids Pills Other X [place] ice Oral Preparatory Phase Mastication: N/A Oral [...] stimulation. Please provide single ice chips between TAG MARKER sessions when she is alert and accepting. [...] instrumental swallow evaluation. NEW Plan: Therapy Frequency (TAG MARKER Eval): 3-5 times/wk Patient is in agreement with the plan of care. Total Minutes (Speech Language Pathology): 40 Areli Hathaway MS, [facility])-TAG MARKER Speech-Language Pathologist Inpatient Rehabilitation Pager # [phone] * Enedina Solomon, RD - 10/07/2024 10:34 AM EST Nutrition Progress Note Lucero Bruon is a 74 y.o. female with PMHx [...] Follow-up, Tube Feeding Nutrition Recommendations: NPO per TAG MARKER 10/06. Gtube placed 10/04. Suggest transition to [...] of this encounter: 79.4 kg (175 lb). [place] Body Weight (IBW) (kg): 45.45 Wt Readings [...] oz) 10/02/24 06 80.7 kg (178 lb) 10/01/24 0600 85.5 [...] feeds. Order pended and team paged. 10/06: TAG MARKER continues to recommend NPO, per note 10/05. [...] VHP rather than Nutren 1.5, team aware. TAG MARKER continues to recommend NPO per 09/30 note. LBM 09/29, optimize regimen. Per EMR, pt with 4% wt loss in <1 week (196lbs on 09/24 to 188lbs on 09/28) which is clinically significant. Unable to complete full NFPE at this time. Planned for upcoming PEG placement. 09/29: TF Dc'd 09/28 @ 1835hr. TAG MARKER continues to recommend NPO, need for alternate [...] maxillary line): Not assessed Lean Muscle Loss Sabianism region (temporalis muscle): None present Clavicle bone [...] Karli Morales MD Primary Provider: Leila Manjarrez [phone] Hospital Day: Hospital Day: Patient ID 74 y.o. female with PMHx [...] Events: - Void trial yesterday successful - DANILO, VSS - This morning denies any acute [...] NG/GT:1520] Out: 2215 [Urine:2215] Labs Recent Labs 10/07/2411110/06/24 0033 10/05/24 0008 10/04/24 0029 10/03/24 0405 [...] 199 Recent Labs 10/07/24 0112 10/06/24 0033 10/05/24 0008 CALCIUM 9.0 9.0 9.1 MAGNESIUM 0.72 0.73 [...] Procedure Component Value - Date/Time Blood culture [[id number]] Collected: 09/26/24 1442 Lab Status: Final result Specimen: Blood, Venous Updated: 10/01/24 1602 Blood Culture No growth at 120 hours Blood culture [[id number]] Collected: 09/26/24 1453 Lab Status: Final result Specimen: Blood, Venous Updated: 10/01/24 1602 Blood Culture No growth at 120 hours Imaging/EKG Results for orders placed or performed during the hospital encounter of 09/16/24 CT Head wo Contrast (Generic) (Exam End: 09/16/2024 5:26 PM) Result Value WORKSTATION ID [id number] Impression Interval expansion of now large right-sided [...] who have questions please contact the health cna caregiver that requested your imaging first. Head wo Contrast (Generic) (Exam End: 09/16/2024 11:21 PM) Result Value WORKSTATION ID [id number] Impression CT head: 1. Interval craniotomy with [...] who have questions please contact the health cna caregiver that requested your imaging first. Venogram Brain (Exam End: 09/16/2024 11:21 PM) Result Value WORKSTATION ID [id number] Impression CT head: 1. Interval craniotomy with [...] who have questions please contact the health cna caregiver that requested your imaging first. Chest One View (Exam End: 09/16/2024 11:00 PM) Result Value WORKSTATION ID [id number] Impression Satisfactorily positioned enteric and endotracheal tubes. Left lower lobe atelectasis versus pneumonia. Thank you for letting us participate in the care of this patient. If you are a health care provider and have any questions regarding this report, please contact the number below. For patients who have questions please contact the health cna caregiver that requested your imaging first. Abdomen 1 view (Generic) (Exam End: 09/16/2024 11:00 PM) Result Value WORKSTATION ID [id number] Impression Satisfactorily positioned enteric and endotracheal tubes. Left lower lobe atelectasis versus pneumonia. Thank you for letting us participate in the care of this patient. If you are a health care provider and have any questions regarding this report, please contact the number below. For patients who have questions please contact the health cna caregiver that requested your imaging first. Head wo Contrast (Generic) (Exam End: 09/17/2024 4:51 AM) Result Value WORKSTATION ID [id number] Impression Increased size and density of dominant [...] who have questions please contact the health cna caregiver that requested your imaging first. Chest One View (Exam End: 09/17/2024 2:13 PM) Result Value WORKSTATION ID [id number] Impression 1. No focal opacity in lung [...] who have questions please contact the health cna caregiver that requested your imaging first. Chest One View (Exam End: 09/18/2024 8:43 AM) Result Value WORKSTATION ID [id number] Impression Tubes and lines as described. Blunting of the left costophrenic angle suggests tiny layering left effusion with associated left basilar consolidation/atelectasis Thank you for letting us participate in the care of this patient. If you are a health care provider and have any questions regarding this report, please contact the number below. For patients who have questions please contact the health cna caregiver that requested your imaging first. Abdomen 1 view (Generic) (Exam End: 09/18/2024 12:31 PM) Result Value WORKSTATION ID [id number] Impression Dobbhoff tube tip along the greater curve of the stomach. Thank you for letting us participate in the care of this patient. If you are a health care provider and have any questions regarding this report, please contact the number below. For patients who have questions please contact the health cna caregiver that requested your imaging first. Brain wwo Contrast (Generic) (Exam End: 09/19/2024 5:43 PM) Result Value WORKSTATION ID [id number] Impression Unchanged size of large right cerebral hemisphere ICH status post partial evacuation. Numerous small foci of decreased acute infarction both along and separate from the site of hemorrhage. These foci are present in both cerebral hemispheres and have a pattern most consistent with embolic infarction. No evidence of LEADERSHIP COACH malignancy Thank you for letting us participate in the care of this patient. If you are a health care provider and have any questions regarding this report, please contact the number below. For patients who have questions please contact the health cna caregiver that requested your imaging first. Head wo Contrast (Generic) (Exam End: 09/21/2024 3:50 AM) Result Value WORKSTATION ID [id number] Impression Stable hemorrhage right temporal, parietal, right [...] who have questions please contact the health cna caregiver that requested your imaging first. Abdomen 1 view (Generic) (Exam End: 09/21/2024 2:01 PM) Result Value WORKSTATION ID [id number] Impression Dobbhoff tube and enteric tube sidehole [...] who have questions please contact the health cna caregiver that requested your imaging first. Chest One View (Exam End: 09/21/2024 2:01 PM) Result Value WORKSTATION ID [id number] Impression ET tube with tip projecting approximately [...] who have questions please contact the health cna caregiver that requested your imaging first. Head wo Contrast (Generic) (Exam End: 09/22/2024 4:02 AM) Result Value WORKSTATION ID [id number] Impression Stable head CT status post removal of subcutaneous drain. No new or enlarging hemorrhage. Stable pattern of mass effect Thank you for letting us participate in the care of this patient. If you are a health care provider and have any questions regarding this report, please contact the number below. For patients who have questions please contact the health cna caregiver that requested your imaging first. Angiogram Chest for Pulmonary Embolus w Contrast (Exam End: 09/26/2024 1:37 PM) Result Value WORKSTATION ID [id number] Impression 1. No pulmonary embolism. 2. Pulmonary [...] who have questions please contact the health cna caregiver that requested your imaging first. Head wo Contrast (Generic) (Exam End: 09/26/2024 1:37 PM) Result Value WORKSTATION ID [id number] Impression 1. Stable right-sided parenchymal and subdural [...] who have questions please contact the health cna caregiver that requested your imaging first. Abdomen & Pelvis w Contrast (Exam End: 09/26/2024 1:37 PM) Result Value WORKSTATION ID [id number] Impression 1. No pulmonary embolism. 2. Pulmonary [...] who have questions please contact the health cna caregiver that requested your imaging first. Electronically signed by: [facility] ([phone]), at 09/26/2024 1:54 PM XR Chest One View (Exam End: 09/28/2024 4:06 AM) Result Value WORKSTATION ID [id number] Impression 1. Limited examination. 2. Interval removal [...] who have questions please contact the health cna caregiver that requested your imaging first. Chest One View (Exam End: 09/28/2024 7:58 PM) Result Value WORKSTATION ID [id number] Impression 1. Slightly increased opacity in the [...] who have questions please contact the health cna caregiver that requested your imaging first. Chest One View (Exam End: 09/29/2024 1:13 PM) Result Value WORKSTATION ID [id number] Impression 1. Limited examination. 2. Stable position [...] who have questions please contact the health cna caregiver that requested your imaging first. Head wo Contrast (Generic) (Exam End: 10/04/2024 1:40 AM) Result Value WORKSTATION ID [id number] Impression 1. Overall interval improvement of the [...] who have questions please contact the health cna caregiver that requested your imaging first. Brain wwo Contrast (Generic) (Exam End: 10/04/2024 10:30 PM) Result Value WORKSTATION ID [id number] Impression 1. Fluid collections in the right [...] who have questions please contact the health cna caregiver that requested your imaging first. Chest One View (Exam End: 10/06/2024 10:59 AM) Result Value WORKSTATION ID [id number] Impression Improved but persistent retrocardiac patchy opacity [...] who have questions please contact the health cna caregiver that requested your imaging first. SSMENT & PLAN Lucero Bruno 74 y.o. female [...] PRN #GI - >dysphagia - follow up TAG MARKER recs - NPO diet (Give Meds) - [...] Other - Activity: as tolerated - Dispo: Residential facility - Last BM: Last Bowel Movement: [...] Please page Vascular Neurology with any questions, #[phone] Anitra Ruiz DO Department of Neurology [place] [phone] Associated attestation - Karli Morales MD - [...] Guzman MD - 10/06/2024 5:27 PM EST [facility] NEUROSURGERY PROGRESS NOTE ID: Lucero Bruno 74 [...] 09/16/2024 5:26 PM) Result Value WORKSTATION ID [id number] Impression Interval expansion of now large right-sided [...] who have questions please contact the health cna caregiver that requested your imaging first. Head wo Contrast (Generic) (Exam End: 09/16/2024 11:21 PM) Result Value WORKSTATION ID [id number] Impression CT head: 1. Interval craniotomy with [...] who have questions please contact the health cna caregiver that requested your imaging first. Venogram Brain (Exam End: 09/16/2024 11:21 PM) Result Value WORKSTATION ID [id number] Impression CT head: 1. Interval craniotomy with [...] who have questions please contact the health cna caregiver that requested your imaging first. Chest One View (Exam End: 09/16/2024 11:00 PM) Result Value WORKSTATION ID [id number] Impression Satisfactorily positioned enteric and endotracheal tubes. Left lower lobe atelectasis versus pneumonia. Thank you for letting us participate in the care of this patient. If you are a health care provider and have any questions regarding this report, please contact the number below. For patients who have questions please contact the health cna caregiver that requested your imaging first. Abdomen 1 view (Generic) (Exam End: 09/16/2024 11:00 PM) Result Value WORKSTATION ID [id number] Impression Satisfactorily positioned enteric and endotracheal tubes. Left lower lobe atelectasis versus pneumonia. Thank you for letting us participate in the care of this patient. If you are a health care provider and have any questions regarding this report, please contact the number below. For patients who have questions please contact the health cna caregiver that requested your imaging first. Head wo Contrast (Generic) (Exam End: 09/17/2024 4:51 AM) Result Value WORKSTATION ID [id number] Impression Increased size and density of dominant [...] who have questions please contact the health cna caregiver that requested your imaging first. Chest One View (Exam End: 09/17/2024 2:13 PM) Result Value WORKSTATION ID [id number] Impression 1. No focal opacity in lung [...] who have questions please contact the health cna caregiver that requested your imaging first. Chest One View (Exam End: 09/18/2024 8:43 AM) Result Value WORKSTATION ID [id number] Impression Tubes and lines as described. Blunting of the left costophrenic angle suggests tiny layering left effusion with associated left basilar consolidation/atelectasis Thank you for letting us participate in the care of this patient. If you are a health care provider and have any questions regarding this report, please contact the number below. For patients who have questions please contact the health cna caregiver that requested your imaging first. Abdomen 1 view (Generic) (Exam End: 09/18/2024 12:31 PM) Result Value WORKSTATION ID [id number] Impression Dobbhoff tube tip along the greater curve of the stomach. Thank you for letting us participate in the care of this patient. If you are a health care provider and have any questions regarding this report, please contact the number below. For patients who have questions please contact the health cna caregiver that requested your imaging first. Brain wwo Contrast (Generic) (Exam End: 09/19/2024 5:43 PM) Result Value WORKSTATION ID [id number] Impression Unchanged size of large right cerebral hemisphere ICH status post partial evacuation. Numerous small foci of decreased acute infarction both along and separate from the site of hemorrhage. These foci are present in both cerebral hemispheres and have a pattern most consistent with embolic infarction. No evidence of LEADERSHIP COACH malignancy Thank you for letting us participate in the care of this patient. If you are a health care provider and have any questions regarding this report, please contact the number below. For patients who have questions please contact the health cna caregiver that requested your imaging first. Head wo Contrast (Generic) (Exam End: 09/21/2024 3:50 AM) Result Value WORKSTATION ID [id number] Impression Stable hemorrhage right temporal, parietal, right [...] who have questions please contact the health cna caregiver that requested your imaging first. Abdomen 1 view (Generic) (Exam End: 09/21/2024 2:01 PM) Result Value WORKSTATION ID [id number] Impression Dobbhoff tube and enteric tube sidehole [...] who have questions please contact the health cna caregiver that requested your imaging first. Chest One View (Exam End: 09/21/2024 2:01 PM) Result Value WORKSTATION ID [id number] Impression ET tube with tip projecting approximately [...] who have questions please contact the health cna caregiver that requested your imaging first. Head wo Contrast (Generic) (Exam End: 09/22/2024 4:02 AM) Result Value WORKSTATION ID [id number] Impression Stable head CT status post removal of subcutaneous drain. No new or enlarging hemorrhage. Stable pattern of mass effect Thank you for letting us participate in the care of this patient. If you are a health care provider and have any questions regarding this report, please contact the number below. For patients who have questions please contact the health cna caregiver that requested your imaging first. Angiogram Chest for Pulmonary Embolus w Contrast (Exam End: 09/26/2024 1:37 PM) Result Value WORKSTATION ID [id number] Impression 1. No pulmonary embolism. 2. Pulmonary [...] who have questions please contact the health cna caregiver that requested your imaging first. Head wo Contrast (Generic) (Exam End: 09/26/2024 1:37 PM) Result Value WORKSTATION ID [id number] Impression 1. Stable right-sided parenchymal and subdural [...] who have questions please contact the health cna caregiver that requested your imaging first. Abdomen & Pelvis w Contrast (Exam End: 09/26/2024 1:37 PM) Result Value WORKSTATION ID [id number] Impression 1. No pulmonary embolism. 2. Pulmonary [...] who have questions please contact the health cna caregiver that requested your imaging first. Chest One View (Exam End: 09/28/2024 4:06 AM) Result Value WORKSTATION ID [id number] Impression 1. Limited examination. 2. Interval removal [...] who have questions please contact the health cna caregiver that requested your imaging first. Chest One View (Exam End: 09/28/2024 7:58 PM) Result Value WORKSTATION ID [id number] Impression 1. Slightly increased opacity in the [...] who have questions please contact the health cna caregiver that requested your imaging first. Electronically signed by: Sammy Story [facility] ([phone]), at 09/28/2024 8:09 PM XR Chest One View (Exam End: 09/29/2024 1:13 PM) Result Value WORKSTATION ID [id number] Impression 1. Limited examination. 2. Stable position [...] who have questions please contact the health cna caregiver that requested your imaging first. Electronically signed by: Marvin Decker [facility] ([phone]), at 09/30/2024 12:[address] Head wo Contrast (Generic) (Exam End: 10/04/2024 1:40 AM) Result Value WORKSTATION ID [id number] Impression 1. Overall interval improvement of the [...] who have questions please contact the health cna caregiver that requested your imaging first. Brain wwo Contrast (Generic) (Exam End: 10/04/2024 10:30 PM) Result Value WORKSTATION ID [id number] Impression 1. Fluid collections in the right [...] who have questions please contact the health cna caregiver that requested your imaging first. Electronically signed by: Armando Pan [facility] ([phone]), at 10/05/2024 12:31 AM XR Chest One View (Exam End: 10/06/2024 10:59 AM) Result Value WORKSTATION ID [id number] Impression Improved but persistent retrocardiac patchy opacity [...] who have questions please contact the health cna caregiver that requested your imaging first. Assessment: 74 y.o. female with PMHx notable for Afib (taking ASA, previously on apixaban-stopped taking after IPH in April 2024), CHRISTOPHER, HLD, BMI of 36, prior IPH 04/2024 who presented to hospital 09/16/24 for placement of Watchman with cardiology. She developed headaches and nausea post op and CT scan noted large R xojperha-gvxakpc-xybmfhzfx IPH. Now s/p R craniotomy for IPH [...] clinic with JESSI For questions please call [facility] pager [phone] Rob Guzman MD Clinical Documentation Improvement: Active [...] be 2/2 to [facility] who [place] [facility] [place]man [place] subsequently developing [...] in all aspects. 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 Patient reports she enjoys her 1/2 acre of flower beds. Falls: None Precautions/Special Considerations: at risk to fall, SBP 90-160, MAP>65 Lines: PIV, tele, hill catheter, PEG Activity Orders: AAT Diet: NPO Mobility and Positioning Recommendations: Pt to utilize [facility] for transfers with nursing. Please encourage [...] the current findings, Anticipated Discharge Disposition (PT): senior care facility when medically ready for hospital discharge. [...] plan as stated. Time IN / OUT: 4480-7307 Total Minutes, Physical Therapy: 22 Billing Code: TEF1 Kymberly Baptiste PT, DPT, NCS Pager: [phone] Physical Therapy Inpatient Rehabilitation Department * Diana Lucas OT - 10/06/2024 1:28 PM EST Occupational Therapy Treatment Note Treatment Number OT: 5 Patient Dx:Lucero Bruno is a 74 y.o. female admitted on 09/16/2024. 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 who presented [place] [facility] [place] for watchman procedure subsequently [...] 10/04/24 1236 -- 2 Urethral Catheter 10/02/24 0315 14 10/02/24 0315 -- 4 Activity Orders: Activity Orders (From admission to next 72h) Start Ordered Unscheduled Activity as tolerated PRN 09/16/24 2205 Unscheduled Up with assistance PRN 09/16/24 2205 S: Pt received in bed with boyfriend [...] and therapy goals Anticipated Discharge Disposition (OT): senior care facility Equipment Recommendations: Equipment Needs Upon Discharge [...] They/Them Occupational Therapy Rehabilitation Department Pager # [phone] * Areli Hathaway SLP - 10/06/2024 9:21 AM EST Speech Therapy Note Patient Profile: Lucero Bruno is a 74 y.o. female with PMHx of A-fib, CHRISTOPHER, HLD, and prior IPH (04/2024) who [place] [facility] [place] for placement of Watchman with cardiology. She developed headaches and nausea post-operatively and was found to have a large R opkugygh-roovaet-udszvmfos IPH, now s/p craniotomy. Patient was intubated from 09/16-09/21 with extubation complicated by stridor requiring re-intubation from 09/21-09/26 (11 days total). TAG MARKER has been following since 09/27 for communication [...] X Bolus Presentation(s): Tested Comments Thin liquids Carlyss thick liquids Honey thick liquids Pureed solids [...] stimulation. Please provide single ice chips between TAG MARKER sessions when she is alert and accepting. [...] safe swallowing strategies. ONGOING Plan: Therapy Frequency (TAG MARKER Eval): 3-5 times/wk Patient is in agreement with the plan of care. Total Minutes (Speech Language Pathology): 35 Areli Hathaway MS, CCC-TAG MARKER Speech-Language Pathologist Inpatient Rehabilitation Pager # [phone] * Sol Hazel RD - 10/06/2024 7:27 [...] Follow-up, Tube Feeding Nutrition Recommendations: NPO per TAG MARKER 10/05 Continue TF and limit holds as [...] steps: feeds not at goal, need for termite treater helper nutrition planif unable to advance diet Current [...] of this encounter: 79.4 kg (175 lb). [place] Body Weight (IBW) (kg): 45.45 Wt Readings [...] oz) 09/30/24 0600 84.4 kg (186 lb) Weight Source: Bed [...] intake and intake history / interview: 10/06: TAG MARKER continues to recommend NPO, per note 10/05. [...] VHP rather than Nutren 1.5, team aware. TAG MARKER continues to recommend NPO per 09/30 note. LBM 09/29, optimize regimen. Per EMR, pt with 4% wt loss in <1 week (196lbs on 09/24 to 188lbs on 09/28) which is clinically significant. Unable to complete full NFPE at this time. Planned for upcoming PEG placement. 09/29: TF Dc'd 09/28 @ 1835hr. TAG MARKER continues to recommend NPO, need for alternate [...] maxillary line): Not assessed Lean Muscle Loss Sabianism region (temporalis muscle): None present Clavicle bone [...] Gissell Velazco MD Primary Provider: Leila Manjarrez [phone] Hospital Day: Hospital Day: 21 Patient ID [...] No changes in medical management yesterday - DANILO, VSS - This morning denies any acute [...] 16.45* Recent Labs 10/06/24 0033 10/05/24 0008 10/04/249 10/03/24 0405 10/02/24 0149 NA 138 139 142 146* 146* K 4.3 4.2 4.1 4.0 3.6 CL 101 103 106 108* 108* CO2 26 29 26 30 28 BUN 21* 24* 24* 22* 27* CREATININE 0.45* 0.36* 0.36* 0.35* 0.39* GLUCOSE 211* 136 166 199 123 Recent Labs 10/06/243 10/05/248 10/04/24 002 CALCIUM 9.0 9.1 8.9 MAGNESIUM 0.73 0.85 [...] Procedure Component Value - Date/Time Blood culture [[id number]] Collected: 09/26/24 1442 Lab Status: Final result Specimen: Blood, Venous Updated: 10/01/24 1602 Blood Culture No growth at 120 hours Blood culture [[id number]] Collected: 09/26/24 1453 Lab Status: Final result Specimen: Blood, Venous Updated: 10/01/24 1602 Blood Culture No growth at 120 hours Imaging/EKG Results for orders placed or performed during the hospital encounter of 09/16/24 CT Head wo Contrast (Generic) (Exam End: 09/16/2024 5:26 PM) Result Value WORKSTATION ID [id number] Impression Interval expansion of now large right-sided [...] who have questions please contact the health cna caregiver that requested your imaging first. Head wo Contrast (Generic) (Exam End: 09/16/2024 11:21 PM) Result Value WORKSTATION ID [id number] Impression CT head: 1. Interval craniotomy with [...] who have questions please contact the health cna caregiver that requested your imaging first. Venogram Brain (Exam End: 09/16/2024 11:21 PM) Result Value WORKSTATION ID [id number] Impression CT head: 1. Interval craniotomy with [...] who have questions please contact the health cna caregiver that requested your imaging first. Chest One View (Exam End: 09/16/2024 11:00 PM) Result Value WORKSTATION ID [id number] Impression Satisfactorily positioned enteric and endotracheal tubes. Left lower lobe atelectasis versus pneumonia. Thank you for letting us participate in the care of this patient. If you are a health care provider and have any questions regarding this report, please contact the number below. For patients who have questions please contact the health cna caregiver that requested your imaging first. Abdomen 1 view (Generic) (Exam End: 09/16/2024 11:00 PM) Result Value WORKSTATION ID [id number] Impression Satisfactorily positioned enteric and endotracheal tubes. Left lower lobe atelectasis versus pneumonia. Thank you for letting us participate in the care of this patient. If you are a health care provider and have any questions regarding this report, please contact the number below. For patients who have questions please contact the health cna caregiver that requested your imaging first. Head wo Contrast (Generic) (Exam End: 09/17/2024 4:51 AM) Result Value WORKSTATION ID [id number] Impression Increased size and density of dominant [...] who have questions please contact the health cna caregiver that requested your imaging first. Chest One View (Exam End: 09/17/2024 2:13 PM) Result Value WORKSTATION ID [id number] Impression 1. No focal opacity in lung [...] who have questions please contact the health cna caregiver that requested your imaging first. Chest One View (Exam End: 09/18/2024 8:43 AM) Result Value WORKSTATION ID [id number] Impression Tubes and lines as described. Blunting of the left costophrenic angle suggests tiny layering left effusion with associated left basilar consolidation/atelectasis Thank you for letting us participate in the care of this patient. If you are a health care provider and have any questions regarding this report, please contact the number below. For patients who have questions please contact the health cna caregiver that requested your imaging first. Abdomen 1 view (Generic) (Exam End: 09/18/2024 12:31 PM) Result Value WORKSTATION ID [id number] Impression Dobbhoff tube tip along the greater curve of the stomach. Thank you for letting us participate in the care of this patient. If you are a health care provider and have any questions regarding this report, please contact the number below. For patients who have questions please contact the health cna caregiver that requested your imaging first. Brain wwo Contrast (Generic) (Exam End: 09/19/2024 5:43 PM) Result Value WORKSTATION ID [id number] Impression Unchanged size of large right cerebral hemisphere ICH status post partial evacuation. Numerous small foci of decreased acute infarction both along and separate from the site of hemorrhage. These foci are present in both cerebral hemispheres and have a pattern most consistent with embolic infarction. No evidence of LEADERSHIP COACH malignancy Thank you for letting us participate in the care of this patient. If you are a health care provider and have any questions regarding this report, please contact the number below. For patients who have questions please contact the health cna caregiver that requested your imaging first. Head wo Contrast (Generic) (Exam End: 09/21/2024 3:50 AM) Result Value WORKSTATION ID [id number] Impression Stable hemorrhage right temporal, parietal, right [...] who have questions please contact the health cna caregiver that requested your imaging first. Abdomen 1 view (Generic) (Exam End: 09/21/2024 2:01 PM) Result Value WORKSTATION ID [id number] Impression Dobbhoff tube and enteric tube sidehole [...] who have questions please contact the health cna caregiver that requested your imaging first. Chest One View (Exam End: 09/21/2024 2:01 PM) Result Value WORKSTATION ID [id number] Impression ET tube with tip projecting approximately [...] who have questions please contact the health cna caregiver that requested your imaging first. Head wo Contrast (Generic) (Exam End: 09/22/2024 4:02 AM) Result Value WORKSTATION ID [id number] Impression Stable head CT status post removal of subcutaneous drain. No new or enlarging hemorrhage. Stable pattern of mass effect Thank you for letting us participate in the care of this patient. If you are a health care provider and have any questions regarding this report, please contact the number below. For patients who have questions please contact the health cna caregiver that requested your imaging first. Angiogram Chest for Pulmonary Embolus w Contrast (Exam End: 09/26/2024 1:37 PM) Result Value WORKSTATION ID [id number] Impression 1. No pulmonary embolism. 2. Pulmonary [...] who have questions please contact the health cna caregiver that requested your imaging first. Head wo Contrast (Generic) (Exam End: 09/26/2024 1:37 PM) Result Value WORKSTATION ID [id number] Impression 1. Stable right-sided parenchymal and subdural [...] who have questions please contact the health cna caregiver that requested your imaging first. Abdomen & Pelvis w Contrast (Exam End: 09/26/2024 1:37 PM) Result Value WORKSTATION ID [id number] Impression 1. No pulmonary embolism. 2. Pulmonary [...] who have questions please contact the health cna caregiver that requested your imaging first. Chest One View (Exam End: 09/28/2024 4:06 AM) Result Value WORKSTATION ID [id number] Impression 1. Limited examination. 2. Interval removal [...] who have questions please contact the health cna caregiver that requested your imaging first. Chest One View (Exam End: 09/28/2024 7:58 PM) Result Value WORKSTATION ID [id number] Impression 1. Slightly increased opacity in the [...] who have questions please contact the health cna caregiver that requested your imaging first. Chest One View (Exam End: 09/29/2024 1:13 PM) Result Value WORKSTATION ID [id number] Impression 1. Limited examination. 2. Stable position [...] who have questions please contact the health cna caregiver that requested your imaging first. Head wo Contrast (Generic) (Exam End: 10/04/2024 1:40 AM) Result Value WORKSTATION ID [id number] Impression 1. Overall interval improvement of the [...] who have questions please contact the health cna caregiver that requested your imaging first. Brain wwo Contrast (Generic) (Exam End: 10/04/2024 10:30 PM) Result Value WORKSTATION ID [id number] Impression 1. Fluid collections in the right [...] who have questions please contact the health cna caregiver that requested your imaging first. Electronically signed by: Armando Pan [facility] ([phone]), at 10/05/2024 12:31 AM ASSESSMENT & PLAN [...] PRN #GI - >dysphagia - follow up TAG MARKER recs - NPO diet (Give Meds) - [...] Other - Activity: as tolerated - Dispo: Residential facility - Last BM: Last Bowel Movement: 10/04/24 - code status: Attempt Cardiopulmonary Resuscitation - Inpatient Patient Lines/Drains/Airways Status Active Tubes/Lines/Drains Name Placement date Placement time Site Days PIV 10/05/242028 22 gauge;1 in length median vein (underside of arm), right 10/05/242028 -- 1 Enterostomy Tube 10/04/24 1236 gastrostomy tube with balloon midline 10/04/246 -- 2 Urethral Catheter 10/02/24314 14 10/02/24314 -- 4 Please page Vascular Neurology with any questions, #[phone] Anitra Ruiz, [place] [address] Associated attestation - Karli Morales MD - 10/06/2024 9:11 PM EST Neurology Staff Note I have reviewed the resident's history during the visit and I agree with the details as written. Myphysical examination confirms the resident's findings. The assessment and plan were formulated in discussion with me at the time of the visit and I agree with them as documented. * Areli Hathaway, ZUHAIR - 10/05/2024 3:18 PM EST Speech Therapy Note Patient Profile: Lucero Bruno is a 74 y.o. female with PMHx of A-fib, CHRISTOPHER, HLD, and prior IPH (04/2024) who [place] [facility] [place] for placement of Watchman with cardiology. She developed headaches and nausea post-operatively and was found to have a large R aaoyxvsg-xfyxoge-zqrnihfmb IPH, now s/p craniotomy. Patient was intubated from 09/16-09/21 with extubation complicated by stridor requiring re-intubation from 09/21-09/26 (11 days total). TAG MARKER has been following since 09/27 for communication [...] X Bolus Presentation(s): Tested Comments Thin liquids Carlyss thick liquids Honey thick liquids Pureed solids Dysphagia soft Mechanical soft Regular solids Pills Other X [place] ice Oral Preparatory Phase Mastication: N/A Oral [...] stimulation. Please provide single ice chips between TAG MARKER sessions when she is alert and accepting. [...] safe swallowing strategies. ONGOING Plan: Therapy Frequency (TAG MARKER Eval): 3-5 times/wk Patient is in agreement with the plan of care. Total Minutes (Speech Language Pathology): 45 Areli Hathaway MS, [facility]TAG MARKER Speech-Language Pathologist Inpatient Rehabilitation Pager # [phone] * Roberta Damon - 10/05/2024 3:10 PM EST Channeler Encounter Note Patient Name: Lucero Bruno : [id number] MR#: [id number] Admit Date: 09/16/2024 10:06 AM Hospital Day 19 days Narrative: Visited patient on unit rounds to follow up on visits from Father Donnie Moreira and Food Services Coordinator Tour Operator Leyx. The patient was lying in bed. Assessment: [...] at discharge. I have met with the district representative son Don Pollard to: discuss discharge planning needs. provide the [facility], Office of Care Management letter from the Recruitment Internship pertaining to rehab referrals. provide a letter describing our affiliations within the [facility] and educate about their right to choose where referrals are sent. provide the [facility] Star Quality Rating handout. review the different levels of rehab including SNF, swing, and acute. provide a list of facilities within their preferred geographic area. request that they provide at least three choices for referral. They have requested referrals to: [facility] [address] [place] [address] [address] [facility] [address] [place] [id number] Note routed to a Supervisor Dials who will communicate referrals to facilities and provide any required information. Anupama Pastrana, MSN, RN ACM-RN [facility] golf course patroller * Dheeraj Moreira - 10/05/2024 9:28 AM EST Channeler Encounter Note Patient Name: Lucero Bruno : [id number] MR#: [id number] Admit Date: 09/16/2024 10:06 AM Hospital Day 19 days Narrative:Visited to introduce and assess acceptance of Channeler services. Assessment:Family coping positively with stresses of illness/hospitalization at this time. I met with patient family member in [facility] who is very dedicated and comes almost ever day and shared that Lucero is getting better slowly. Intervention and Outcome:Provided emotional, spiritual support and listening presence. Channeler services accepted. Conversation to build trusting relationship. [...] right occipital hemorrhage, inability to swallow, requiring termite treater helper enteral access for nutrition. Catheter functioning well, tolerating tube feeds. Plan: -Gastropexy suture release ordered and to be scheduled in 7-10 days. -IR will sign-off at this time. Please page with further questions and concerns. Liane Holley PA-C Interventional Radiology IR Team Pager [phone] * Rob Guzman MD - 10/05/2024 7:44 AM EST [facility] NEUROSURGERY PROGRESS NOTE ID: Lucero Bruon 74 y.o. female : 1950 LOS: 19 [...] for drainage. Dressing dry. LABS: Recent Labs 10/05/24710/04/242810/03/24 0405 WBC 13.56* 14.67* 15.33* HGB 10.8* 10.4* 10.5* PLATELET 241 303 359* Recent Labs 10/05/24710/04/242810/03/24 0405 NA 139 142 146* K 4.2 4.1 4.0 CL 103 106 108* CO2 29 26 30 BUN 24* 24* 22* CREATININE 0.36* 0.36* 0.35* No results for input(s): PT, INR in the last 72 hours. IMAGING: Results for orders placed or performed during the hospital encounter of 09/16/24 CT Head wo Contrast (Generic) (Exam End: 09/16/2024 5:26 PM) Result Value WORKSTATION ID [id number] Impression Interval expansion of now large right-sided [...] who have questions please contact the health cna caregiver that requested your imaging first. Head wo Contrast (Generic) (Exam End: 09/16/2024 11:21 PM) Result Value WORKSTATION ID [id number] Impression CT head: 1. Interval craniotomy with [...] who have questions please contact the health cna caregiver that requested your imaging first. Venogram Brain (Exam End: 09/16/2024 11:21 PM) Result Value WORKSTATION ID [id number] Impression CT head: 1. Interval craniotomy with [...] who have questions please contact the health cna caregiver that requested your imaging first. Chest One View (Exam End: 09/16/2024 11:00 PM) Result Value WORKSTATION ID [id number] Impression Satisfactorily positioned enteric and endotracheal tubes. Left lower lobe atelectasis versus pneumonia. Thank you for letting us participate in the care of this patient. If you are a health care provider and have any questions regarding this report, please contact the number below. For patients who have questions please contact the health cna caregiver that requested your imaging first. Electronically signed by: Pamela Beard [facility] ([phone]), at 09/17/2024 12:09 AM XR Abdomen 1 view (Generic) (Exam End: 09/16/2024 11:00 PM) Result Value WORKSTATION ID [id number] Impression Satisfactorily positioned enteric and endotracheal tubes. Left lower lobe atelectasis versus pneumonia. Thank you for letting us participate in the care of this patient. If you are a health care provider and have any questions regarding this report, please contact the number below. For patients who have questions please contact the health cna caregiver that requested your imaging first. Head wo Contrast (Generic) (Exam End: 09/17/2024 4:51 AM) Result Value WORKSTATION ID [id number] Impression Increased size and density of dominant [...] who have questions please contact the health cna caregiver that requested your imaging first. Chest One View (Exam End: 09/17/2024 2:13 PM) Result Value WORKSTATION ID [id number] Impression 1. No focal opacity in lung [...] who have questions please contact the health cna caregiver that requested your imaging first. Chest One View (Exam End: 09/18/2024 8:43 AM) Result Value WORKSTATION ID [id number] Impression Tubes and lines as described. Blunting of the left costophrenic angle suggests tiny layering left effusion with associated left basilar consolidation/atelectasis Thank you for letting us participate in the care of this patient. If you are a health care provider and have any questions regarding this report, please contact the number below. For patients who have questions please contact the health cna caregiver that requested your imaging first. Abdomen 1 view (Generic) (Exam End: 09/18/2024 12:31 PM) Result Value WORKSTATION ID [id number] Impression Dobbhoff tube tip along the greater curve of the stomach. Thank you for letting us participate in the care of this patient. If you are a health care provider and have any questions regarding this report, please contact the number below. For patients who have questions please contact the health cna caregiver that requested your imaging first. Brain wwo Contrast (Generic) (Exam End: 09/19/2024 5:43 PM) Result Value WORKSTATION ID [id number] Impression Unchanged size of large right cerebral hemisphere ICH status post partial evacuation. Numerous small foci of decreased acute infarction both along and separate from the site of hemorrhage. These foci are present in both cerebral hemispheres and have a pattern most consistent with embolic infarction. No evidence of LEADERSHIP COACH malignancy Thank you for letting us participate in the care of this patient. If you are a health care provider and have any questions regarding this report, please contact the number below. For patients who have questions please contact the health cna caregiver that requested your imaging first. Head wo Contrast (Generic) (Exam End: 09/21/2024 3:50 AM) Result Value WORKSTATION ID [id number] Impression Stable hemorrhage right temporal, parietal, right [...] who have questions please contact the health cna caregiver that requested your imaging first. Abdomen 1 view (Generic) (Exam End: 09/21/2024 2:01 PM) Result Value WORKSTATION ID [id number] Impression Dobbhoff tube and enteric tube sidehole [...] who have questions please contact the health cna caregiver that requested your imaging first. Chest One View (Exam End: 09/21/2024 2:01 PM) Result Value WORKSTATION ID [id number] Impression ET tube with tip projecting approximately [...] who have questions please contact the health cna caregiver that requested your imaging first. Head wo Contrast (Generic) (Exam End: 09/22/2024 4:02 AM) Result Value WORKSTATION ID [id number] Impression Stable head CT status post removal of subcutaneous drain. No new or enlarging hemorrhage. Stable pattern of mass effect Thank you for letting us participate in the care of this patient. If you are a health care provider and have any questions regarding this report, please contact the number below. For patients who have questions please contact the health cna caregiver that requested your imaging first. Angiogram Chest for Pulmonary Embolus w Contrast (Exam End: 09/26/2024 1:37 PM) Result Value WORKSTATION ID [id number] Impression 1. No pulmonary embolism. 2. Pulmonary [...] who have questions please contact the health cna caregiver that requested your imaging first. Head wo Contrast (Generic) (Exam End: 09/26/2024 1:37 PM) Result Value WORKSTATION ID [id number] Impression 1. Stable right-sided parenchymal and subdural [...] who have questions please contact the health cna caregiver that requested your imaging first. Abdomen & Pelvis w Contrast (Exam End: 09/26/2024 1:37 PM) Result Value WORKSTATION ID [id number] Impression 1. No pulmonary embolism. 2. Pulmonary [...] who have questions please contact the health cna caregiver that requested your imaging first. Chest One View (Exam End: 09/28/2024 4:06 AM) Result Value WORKSTATION ID [id number] Impression 1. Limited examination. 2. Interval removal [...] who have questions please contact the health cna caregiver that requested your imaging first. Chest One View (Exam End: 09/28/2024 7:58 PM) Result Value WORKSTATION ID [id number] Impression 1. Slightly increased opacity in the [...] who have questions please contact the health cna caregiver that requested your imaging first. Chest One View (Exam End: 09/29/2024 1:13 PM) Result Value WORKSTATION ID [id number] Impression 1. Limited examination. 2. Stable position [...] who have questions please contact the health cna caregiver that requested your imaging first. Head wo Contrast (Generic) (Exam End: 10/04/2024 1:40 AM) Result Value WORKSTATION ID [id number] Impression 1. Overall interval improvement of the [...] who have questions please contact the health cna caregiver that requested your imaging first. Brain wwo Contrast (Generic) (Exam End: 10/04/2024 10:30 PM) Result Value WORKSTATION ID [id number] Impression 1. Fluid collections in the right [...] who have questions please contact the health cna caregiver that requested your imaging first. Assessment: 74 y.o. female with PMHx notable for Afib (taking ASA, previously on apixaban-stopped taking after IPH in April 2024), CHRISTOPHER, HLD, BMI of 36, prior IPH 04/2024 who presented to hospital 09/16/24 for placement of Watchman with cardiology. She developed headaches and nausea post op and CT scan noted large R yinzcqta-vzdivbf-qfduicrmm IPH. Now s/p R craniotomy for IPH [...] JESSI For questions please call NSGY pager [phone] Rob Guzman MD Clinical Documentation Improvement: Active Hospital Problems Diagnosis Right occipital hemorrhage with associated vassogenic edema, anticoagulation associated, probableCAA Severe protein-calorie malnutrition Presence of Watchman left atrial appendage closure device S/P craniotomy Resolved Hospital Problems No resolved problems to display. * Omero Ruizenzadam Castañeda DO - 10/05/2024 6:55 AM EST Images from the original note were not included. VASCULAR NEUROLOGY DAILY PROGRESS NOTE Admit Date 09/16/2024 Responsible Attending: Gissell Velazco MD Primary Provider: Leila Manjarrez [phone] Hospital Day: Hospital Day: 20 Patient ID [...] Labs Recent Labs 10/05/24 0008 10/04/24 0029 10/03/245 10/02/249 10/01/24 0021 WBC 13.56* 14.67* 15.33* 19.16* 22.24* HGB 10.8* 10.4* 10.5* 10.1* 9.9* HCT 33.5* 32.8* 32.4* 31.1* 29.2* PLATELET 241 303 359* 399* 370* NEUTROABS 11.69* 12.52* 13.43* 16.45* 20.01* Recent Labs 10/05/24 0008 10/04/249 10/03/245 10/02/249 10/01/24 0021 NA 139 142 146* 146* 141 K 4.2 4.1 4.0 3.6 3.2* CL 103 106 108* 108* 105 CO2 29 26 30 28 28 BUN 24* 24* 22* 27* 23* CREATININE 0.36* 0.36* 0.35* 0.39* 0.43* GLUCOSE 136 166 199 123 124 Recent Labs 10/05/24710/04/242810/03/24404 CALCIUM 9.1 8.9 9.1 MAGNESIUM 0.85 0.80 [...] PRN #GI - >dysphagia - follow up TAG MARKER recs - No diet orders on file [...] Other - Activity: as tolerated - Dispo: Residential facility - Last BM: Last Bowel Movement: [...] 14 10/02/24 0315 -- 3 Fecal Incontinence Medical Field Representative 10/02/24 1208 10/02/24 1208 -- 3 Please page Vascular Neurology with any questions, #[phone] Anitra Ruiz DO Department of Neurology [place] [id number] Associated attestation - Karli Morales MD - [...] RN [facility] * Agustin Loving PA - 10/04/2024 11:16 [...] be 2/2 to CAA who [place] [facility] [place]man [place] subsequently developing [...] in all aspects. 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 Please encourage up to chair for meal times as able. Subjective: communicates via gestures, waves and gives thumbs up, nods head. Objective: Patient seen for physical therapy and demonstrated the following: Pain: Endorses pain in L shoulder, RN going to give her tylenol, L UE positioned on pillows. Vital Signs: HR=61 SpO2=98% 2 L O2 nc WW=177/74 (93) Cognition/Vision: alert, follows commands in R [...] bed alarm on following visit. RN and VICKI in room @end of therapy session. Assessment: [...] the current findings, Anticipated Discharge Disposition (PT): senior care facility when medically ready for hospital discharge. [...] (TE-F x 2) Hortencia Matta PT Pager: [phone] Physical Therapy Inpatient Rehabilitation Department * Lucie Caldera, OT - 10/04/2024 9:50 AM EST Occupational Therapy Treatment Note Treatment Number OT: 4 Patient Dx: Luecro Bruno is a 74 y.o. female admitted on 09/16/2024. 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 Anticipated Discharge Disposition (OT): senior care facility Equipment Recommendations: Equipment Needs Upon Discharge [...] OTR/L Occupational Therapy Rehabilitation Department Pager # [phone] * Crys Suarez MD - 10/04/2024 9:00 AM EST [facility] NEUROSURGERY PROGRESS NOTE ID: Lucero Bruno 74 y.o. female : 1950 LOS: 18 Neurosurgical Procedures this Admission: 09/16/24, Dr. Espinal: R craniotomy for IPH evacuation INTERVAL Hx: -NPO [...] saturating mepilex with strikethrough LABS: Recent Labs 10/04/242810/03/245 10/02/24 0149 WBC 14.67* 15.33* 19.16* HGB 10.4* 10.5* 10.1* PLATELET 303 359* 399* Recent Labs 10/04/242810/03/245 10/02/24 0149 NA 142 146* 146* K 4.1 4.0 3.6 CL 106 108* 108* CO2 26 30 28 BUN 24* 22* 27* CREATININE 0.36* 0.35* 0.39* No results for input(s): PT, INR in the last 72 hours. IMAGING: Results for orders placed or performed during the hospital encounter of 09/16/24 CT Head wo Contrast (Generic) (Exam End: 09/16/2024 5:26 PM) Result Value WORKSTATION ID [id number] Impression Interval expansion of now large right-sided [...] who have questions please contact the health cna caregiver that requested your imaging first. Head wo Contrast (Generic) (Exam End: 09/16/2024 11:21 PM) Result Value WORKSTATION ID [id number] Impression CT head: 1. Interval craniotomy with [...] who have questions please contact the health cna caregiver that requested your imaging first. Venogram Brain (Exam End: 09/16/2024 11:21 PM) Result Value WORKSTATION ID [id number] Impression CT head: 1. Interval craniotomy with [...] who have questions please contact the health cna caregiver that requested your imaging first. Chest One View (Exam End: 09/16/2024 11:00 PM) Result Value WORKSTATION ID [id number] Impression Satisfactorily positioned enteric and endotracheal tubes. Left lower lobe atelectasis versus pneumonia. Thank you for letting us participate in the care of this patient. If you are a health care provider and have any questions regarding this report, please contact the number below. For patients who have questions please contact the health cna caregiver that requested your imaging first. Abdomen 1 view (Generic) (Exam End: 09/16/2024 11:00 PM) Result Value WORKSTATION ID [id number] Impression Satisfactorily positioned enteric and endotracheal tubes. Left lower lobe atelectasis versus pneumonia. Thank you for letting us participate in the care of this patient. If you are a health care provider and have any questions regarding this report, please contact the number below. For patients who have questions please contact the health cna caregiver that requested your imaging first. Head wo Contrast (Generic) (Exam End: 09/17/2024 4:51 AM) Result Value WORKSTATION ID [id number] Impression Increased size and density of dominant [...] who have questions please contact the health cna caregiver that requested your imaging first. Chest One View (Exam End: 09/17/2024 2:13 PM) Result Value WORKSTATION ID [id number] Impression 1. No focal opacity in lung [...] who have questions please contact the health cna caregiver that requested your imaging first. Chest One View (Exam End: 09/18/2024 8:43 AM) Result Value WORKSTATION ID [id number] Impression Tubes and lines as described. Blunting of the left costophrenic angle suggests tiny layering left effusion with associated left basilar consolidation/atelectasis Thank you for letting us participate in the care of this patient. If you are a health care provider and have any questions regarding this report, please contact the number below. For patients who have questions please contact the health cna caregiver that requested your imaging first. Abdomen 1 view (Generic) (Exam End: 09/18/2024 12:31 PM) Result Value WORKSTATION ID [id number] Impression Dobbhoff tube tip along the greater curve of the stomach. Thank you for letting us participate in the care of this patient. If you are a health care provider and have any questions regarding this report, please contact the number below. For patients who have questions please contact the health cna caregiver that requested your imaging first. Brain wwo Contrast (Generic) (Exam End: 09/19/2024 5:43 PM) Result Value WORKSTATION ID [id number] Impression Unchanged size of large right cerebral hemisphere ICH status post partial evacuation. Numerous small foci of decreased acute infarction both along and separate from the site of hemorrhage. These foci are present in both cerebral hemispheres and have a pattern most consistent with embolic infarction. No evidence of LEADERSHIP COACH malignancy Thank you for letting us participate in the care of this patient. If you are a health care provider and have any questions regarding this report, please contact the number below. For patients who have questions please contact the health cna caregiver that requested your imaging first. Head wo Contrast (Generic) (Exam End: 09/21/2024 3:50 AM) Result Value WORKSTATION ID [id number] Impression Stable hemorrhage right temporal, parietal, right [...] who have questions please contact the health cna caregiver that requested your imaging first. Abdomen 1 view (Generic) (Exam End: 09/21/2024 2:01 PM) Result Value WORKSTATION ID [id number] Impression Dobbhoff tube and enteric tube sidehole [...] who have questions please contact the health cna caregiver that requested your imaging first. Chest One View (Exam End: 09/21/2024 2:01 PM) Result Value WORKSTATION ID [id number] Impression ET tube with tip projecting approximately [...] who have questions please contact the health cna caregiver that requested your imaging first. Head wo Contrast (Generic) (Exam End: 09/22/2024 4:02 AM) Result Value WORKSTATION ID [id number] Impression Stable head CT status post removal of subcutaneous drain. No new or enlarging hemorrhage. Stable pattern of mass effect Thank you for letting us participate in the care of this patient. If you are a health care provider and have any questions regarding this report, please contact the number below. For patients who have questions please contact the health cna caregiver that requested your imaging first. Angiogram Chest for Pulmonary Embolus w Contrast (Exam End: 09/26/2024 1:37 PM) Result Value WORKSTATION ID [id number] Impression 1. No pulmonary embolism. 2. Pulmonary [...] who have questions please contact the health cna caregiver that requested your imaging first. Head wo Contrast (Generic) (Exam End: 09/26/2024 1:37 PM) Result Value WORKSTATION ID [id number] Impression 1. Stable right-sided parenchymal and subdural [...] who have questions please contact the health cna caregiver that requested your imaging first. Abdomen & Pelvis w Contrast (Exam End: 09/26/2024 1:37 PM) Result Value WORKSTATION ID [id number] Impression 1. No pulmonary embolism. 2. Pulmonary [...] who have questions please contact the health cna caregiver that requested your imaging first. Chest One View (Exam End: 09/28/2024 4:06 AM) Result Value WORKSTATION ID [id number] Impression 1. Limited examination. 2. Interval removal [...] who have questions please contact the health cna caregiver that requested your imaging first. Chest One View (Exam End: 09/28/2024 7:58 PM) Result Value WORKSTATION ID [id number] Impression 1. Slightly increased opacity in the [...] who have questions please contact the health cna caregiver that requested your imaging first. Chest One View (Exam End: 09/29/2024 1:13 PM) Result Value WORKSTATION ID [id number] Impression 1. Limited examination. 2. Stable position [...] who have questions please contact the health cna caregiver that requested your imaging first. Head wo Contrast (Generic) (Exam End: 10/04/2024 1:40 AM) Result Value WORKSTATION ID [id number] Impression 1. Overall interval improvement of the [...] who have questions please contact the health cna caregiver that requested your imaging first. Assessment: 74 y.o. female with PMHx notable for Afib (taking ASA, previously on apixaban-stopped taking after IPH in April 2024), CHRISTOPHER, HLD, BMI of 36, prior IPH 04/2024 who presented to hospital 09/16/24 for placement of Watchman with cardiology. She developed headaches and nausea post op and CT scan noted large R irzwxbut-egsjdth-uvhswpdcv IPH. Now s/p R craniotomy for IPH [...] JESSI For questions please call NSGY pager [phone] Crys Suarez MD Clinical Documentation Improvement: Active Hospital Problems Diagnosis Right occipital hemorrhage with associated vassogenic edema, anticoagulation associated, probableCAA Severe protein-calorie malnutrition Presence of Watchman left atrial appendage closure device S/P craniotomy Resolved Hospital Problems No resolved problems to display. * Areli Hathaway TAG MARKER - 10/04/2024 8:57 AM EST Speech Pathology Contact Note Chart reviewed. Patient is currently NPO for planned PEG placement. We will follow up on next treatment date as schedule allows. Please secure chat with questions, thanks! Areli Hathaway, MS, CCC-TAG MARKER Speech-Language Pathologist Inpatient Rehabilitation Pager # [phone] * Sol Hazel RD - 10/04/2024 7:45 [...] Follow-up, Tube Feeding Nutrition Recommendations: NPO per TAG MARKER 09/30 PEG placement planned for today 10/04. [...] steps: feeds not at goal, need for termite treater helper nutrition planif unable to advance diet Current [...] 14 10/02/24 0315 -- 2 Fecal Incontinence Medical Field Representative 10/02/24 1208 10/02/24 1208 -- 2 Oxygen [...] encounter: 79.3 kg (174 lb 12.8 oz). [place] Body Weight (IBW) (kg): 45.45 Wt Readings [...] for the past 168 hrs: Weight 10/04/24 06 79.3 kg (174 lb 12.8 oz) 10/03/24 06 80.5 kg (177 lb 7.5 oz) 10/02/24 06 80.7 kg (178 lb) 10/01/24 0600 85.5 kg (188 lb 7.9 oz) 09/30/24 06 84.4 kg (186 lb) 09/28/24 06 85.4 kg (188 lb 4.4 oz) Weight [...] VHP rather than Nutren 1.5, team aware. TAG MARKER continues to recommend NPO per 09/30 note. LBM 09/29, optimize regimen. Per EMR, pt with 4% wt loss in <1 week (196lbs on 09/24 to 188lbs on 09/28) which is clinically significant. Unable to complete full NFPE at this time. Planned for upcoming PEG placement. 09/29: TF Dc'd 09/28 @ 1835hr. TAG MARKER continues to recommend NPO, need for alternate [...] maxillary line): Not assessed Lean Muscle Loss Sabianism region (temporalis muscle): None present Clavicle bone [...] Attending: Gissell Velazco MD Primary Provider: Leila CarrenoSamyHerson [phone] Hospital Day: Hospital Day: 19 Patient ID [...] yesterday - CHAVEZ CARRASCO - NPO at [facility] for possible PEG today EXAM Last value [...] 3400 [Urine:3350; Stool:50] Labs Recent Labs 10/04/24 0029 10/03/24 0405 10/02/24 0149 10/01/24 0021 09/30/24 014 WBC 14.67* 15.33* 19.16* 22.24* 25.89* HGB 10.4* 10.5* 10.1* 9.9* 10.1* HCT 32.8* 32.4* 31.1* 29.2* 31.0* PLATELET 303 359* 399* 370* 376* NEUTROABS 12.52* 13.43* 16.45* 20.01* 22.26* Recent Labs 10/04/242810/03/2440410/02/249 10/01/242009/30/244 NA 142 146* 146* 141 139 K 4.1 4.0 3.6 3.2* 3.9 CL 106 108* 108* 105 104 CO2 26 30 28 28 25 BUN 24* 22* 27* 23* 16 CREATININE 0.36* 0.35* 0.39* 0.43* 0.47* GLUCOSE 166 199 123 124 141 Recent Labs 10/04/242810/03/2440410/02/24148 CALCIUM 8.9 9.1 8.7 MAGNESIUM 0.80 0.88 0.83 PHOS 2.6 2.7 2.9 No results for input(s): AST, ALT, ALKPHOS, BILITOT, BILIDIR, LDH in the last 168 hours. No results for input(s): TROPONINT, CK in the last 168 hours. No results for input(s): PHART, XXY2MUJ, PO2ART, DAD3QJJ in the last 168 hours. No results [...] PRN #GI - >dysphagia - follow up TAG MARKER recs - NPO diet (Give Meds) - [...] Other - Activity: as tolerated - Dispo: Residential facility - Last BM: Last Bowel Movement: [...] 09/18/24 1229 right nostril 16 Fecal Incontinence Medical Field Representative 10/02/24 1208 10/02/24 1208 -- 2 Please page Vascular Neurology with any questions, #[phone] Anitra Ruiz, DO Department [place] [address] Neurology Attending Attestation I evaluated [...] Pt is supposed to wear NIV at [facility], but refuses per family Pt doesn't like it Pt may just need Oxygen at [facility] RN aware * Clarisse Duke APRN - 10/03/2024 9:09 AM EST Images from the original note were not included. VASCULAR NEUROLOGY DAILY PROGRESS NOTE Admit Date 09/16/2024 Responsible Attending: Gissell Velazco MD Primary Provider: Leila ConnollyimanijoelSamyHerson [phone] Hospital Day: Hospital Day: 18 Patient ID [...] [Urine:3300; Stool:50] Labs Recent Labs 10/03/24 0405 10/02/24 01410/01/24 0021 09/30/24 0144 09/29/24 0109 WBC 15.33* 19.16* 22.24* 25.89* 26.40* HGB 10.5* 10.1* 9.9* 10.1* 10.0* HCT 32.4* 31.1* 29.2* 31.0* 30.9* PLATELET 359* 399* 370* 376* 397* NEUTROABS 13.43* 16.45* 20.01* 22.26* 22.77* Recent Labs 10/03/2440410/02/2414810/01/24 0021 09/30/2414309/28/24 0358 NA 146* 146* 141 139 138 K 4.0 3.6 3.2* 3.9 4.0 CL 108* 108* 105 104 106 CO2 30 28 28 25 22 BUN 22* 27* 23* 16 21* CREATININE 0.35* 0.39* 0.43* 0.47* 0.49* GLUCOSE 199 123 124 141 161 Recent Labs 10/03/2440410/02/2414810/01/24 0021 CALCIUM 9.1 8.7 8.7 MAGNESIUM 0.88 0.83 0.84 PHOS 2.7 2.9 2.4* No results for input(s): AST, ALT, ALKPHOS, BILITOT, BILIDIR, LDH in the last 168 hours. No results for input(s): TROPONINT, CK in the last 168 hours. No results for input(s): PHART, LMV5IKT, PO2ART, IZT6JZS in the last 168 hours. No results [...] PRN #GI - >dysphagia - follow up TAG MARKER recs - NPO diet (Give Meds) - [...] Other - Activity: as tolerated - Dispo: Residential facility - Last BM: Last Bowel Movement: [...] 09/18/24 1229 right nostril 15 Fecal Incontinence Medical Field Representative 10/02/24 1208 10/02/24 1208 -- 1 Please page Vascular Neurology with any questions, #[phone] Clarisse Duke APRN Department of Neurology [place] [phone] * Chase Cárdenas RN - 10/03/2024 6:34 [...] The following status was returned from the hot mill observer: Page for [phone] successfully sent to [phone] having status of Available. * Chase Cárdenas RN - 10/02/2024 11:46 PM EST Page Sent Successfully Page Confirmation To Pager number: [phone] From Submitter: Chase Cárdenas Urgency Level: Call Me Callback Number: [phone] The following Message was sent: [Call Me] - Callback:[phone] [id number] Damion: Did you want TF held [id number] for PEG? Do we do PEGs on Sundays? - Chase Cárdenas The following status was returned from the hot mill observer: Page for [phone] successfully sent to [phone] having status of Available.prog * Clarisse Duke, HOG CONFINEMENT SYSTEM MANAGER - 10/02/2024 2:29 PM EST Images from the original note were not included. VASCULAR NEUROLOGY DAILY PROGRESS NOTE Admit Date 09/16/2024 Responsible Attending: Gissell Velazco MD Primary Provider: Leila Manjarrez [phone] Hospital Day: Hospital Day: 17 Patient ID [...] Out: 1825 [Urine:1525; Stool:300] Labs Recent Labs 10/02/24 0149 10/01/24 0021 09/30/24 0144 09/29/24 0109 09/28/24357 WBC 19.16* 22.24* 25.89* 26.40* 35.37* HGB 10.1* 9.9* 10.1* 10.0* 11.0* HCT 31.1* 29.2* 31.0* 30.9* 34.0* PLATELET 399* 370* 376* 397* 443* NEUTROABS 16.45* 20.01* 22.26* 22.77* 30.79* Recent Labs 10/02/24 01410/01/24 00209/30/2414309/28/2435709/27/24 1646 09/27/248 NA 146* 141 139 138 -- 139 K 3.6 3.2* 3.9 4.0 < > 3.8 CL 108* 105 104 106 -- 103 CO2 28 28 25 22 -- 25 BUN 27* 23* 16 21* -- 17 CREATININE 0.39* 0.43* 0.47* 0.49* -- 0.51* GLUCOSE 123 124 141 161 -- 148 < > = values in this interval not displayed. Recent Labs 10/02/2414810/01/242009/30/24143 CALCIUM 8.7 8.7 8.4* MAGNESIUM 0.83 0.84 0.79 PHOS 2.9 2.4* 2.9 Recent Labs 09/26/24 0635 AST 28 ALT 72* ALKPHOS 81 BILITOT 0.4 BILIDIR <0.2 Recent Labs 09/26/24 0635 CK 78 No results for input(s): PHART, ZOI9JXQ, PO2ART, CRB9AJV in the last 168 hours. No results [...] PRN #GI - >dysphagia - follow up TAG MARKER recs - NPO diet (Give Meds) NPO [...] Other - Activity: as tolerated - Dispo: Residential facility - Last BM: Last Bowel Movement: 10/01/24 - code status: Attempt Cardiopulmonary Resuscitation - Inpatient Patient Lines/Drains/Airways Status Active Tubes/Lines/Drains Name Placement date Placement time Site Days Percutaneous Central Line 09/17/24 1405 Triple Lumen subclavian vein, right 09/17/24 1405 -- 15 Ureteral Catheter 10/02/24 0315 exits urethra 10/02/24 0315 -- less than 1 Naso/Oral Tube 09/18/24 1229 small bore;nonweighted right nostril 09/18/24 1229 right nostril 14 Fecal Incontinence Medical Field Representative 10/02/24 1208 10/02/24 1208 -- less than 1 Please page Vascular Neurology with any questions, #[phone] Clarisse Duke APRN Department of Neurology [place] [phone] * Annamarie Nelson - 10/01/2024 4:04 PM EST Spiritual Health [...] Time acute stroke team was at bedside:: 1644 CT interpretation date: 09/16/24 CT interpretation time:: 1445 Was dysphagia screen performed?: No CC: R IPH ID: Lucero Bruno is a 74 y.o. female with PMH of R occipital hemorrhage, chronic a-fib presented for watchman procedure. Post operatively at approximately 4:20 pm began complaining of severe 09/02 headache, taken to [facility] were an enlarged [...] 09/16/2024 5:26 PM) Result Value WORKSTATION ID [id number] Impression Interval expansion of now large right-sided [...] who have questions please contact the health cna caregiver that requested your imaging first. Head wo Contrast (Generic) (Exam End: 09/16/2024 11:21 PM) Result Value WORKSTATION ID [id number] Impression CT head: 1. Interval craniotomy with [...] who have questions please contact the health cna caregiver that requested your imaging first. Venogram Brain (Exam End: 09/16/2024 11:21 PM) Result Value WORKSTATION ID [id number] Impression CT head: 1. Interval craniotomy with [...] who have questions please contact the health cna caregiver that requested your imaging first. Chest One View (Exam End: 09/16/2024 11:00 PM) Result Value WORKSTATION ID [id number] Impression Satisfactorily positioned enteric and endotracheal tubes. Left lower lobe atelectasis versus pneumonia. Thank you for letting us participate in the care of this patient. If you are a health care provider and have any questions regarding this report, please contact the number below. For patients who have questions please contact the health cna caregiver that requested your imaging first. Abdomen 1 view (Generic) (Exam End: 09/16/2024 11:00 PM) Result Value WORKSTATION ID [id number] Impression Satisfactorily positioned enteric and endotracheal tubes. Left lower lobe atelectasis versus pneumonia. Thank you for letting us participate in the care of this patient. If you are a health care provider and have any questions regarding this report, please contact the number below. For patients who have questions please contact the health cna caregiver that requested your imaging first. Head wo Contrast (Generic) (Exam End: 09/17/2024 4:51 AM) Result Value WORKSTATION ID [id number] Impression Increased size and density of dominant [...] who have questions please contact the health cna caregiver that requested your imaging first. Chest One View (Exam End: 09/17/2024 2:13 PM) Result Value WORKSTATION ID [id number] Impression 1. No focal opacity in lung [...] who have questions please contact the health cna caregiver that requested your imaging first. Chest One View (Exam End: 09/18/2024 8:43 AM) Result Value WORKSTATION ID [id number] Impression Tubes and lines as described. Blunting of the left costophrenic angle suggests tiny layering left effusion with associated left basilar consolidation/atelectasis Thank you for letting us participate in the care of this patient. If you are a health care provider and have any questions regarding this report, please contact the number below. For patients who have questions please contact the health cna caregiver that requested your imaging first. Abdomen 1 view (Generic) (Exam End: 09/18/2024 12:31 PM) Result Value WORKSTATION ID [id number] Impression Dobbhoff tube tip along the greater curve of the stomach. Thank you for letting us participate in the care of this patient. If you are a health care provider and have any questions regarding this report, please contact the number below. For patients who have questions please contact the health cna caregiver that requested your imaging first. Brain wwo Contrast (Generic) (Exam End: 09/19/2024 5:43 PM) Result Value WORKSTATION ID [id number] Impression Unchanged size of large right cerebral hemisphere ICH status post partial evacuation. Numerous small foci of decreased acute infarction both along and separate from the site of hemorrhage. These foci are present in both cerebral hemispheres and have a pattern most consistent with embolic infarction. No evidence of LEADERSHIP COACH malignancy Thank you for letting us participate in the care of this patient. If you are a health care provider and have any questions regarding this report, please contact the number below. For patients who have questions please contact the health cna caregiver that requested your imaging first. Head wo Contrast (Generic) (Exam End: 09/21/2024 3:50 AM) Result Value WORKSTATION ID [id number] Impression Stable hemorrhage right temporal, parietal, right [...] who have questions please contact the health cna caregiver that requested your imaging first. Abdomen 1 view (Generic) (Exam End: 09/21/2024 2:01 PM) Result Value WORKSTATION ID [id number] Impression Dobbhoff tube and enteric tube sidehole [...] who have questions please contact the health cna caregiver that requested your imaging first. Chest One View (Exam End: 09/21/2024 2:01 PM) Result Value WORKSTATION ID [id number] Impression ET tube with tip projecting approximately [...] who have questions please contact the health cna caregiver that requested your imaging first. Head wo Contrast (Generic) (Exam End: 09/22/2024 4:02 AM) Result Value WORKSTATION ID [id number] Impression Stable head CT status post removal of subcutaneous drain. No new or enlarging hemorrhage. Stable pattern of mass effect Thank you for letting us participate in the care of this patient. If you are a health care provider and have any questions regarding this report, please contact the number below. For patients who have questions please contact the health cna caregiver that requested your imaging first. Angiogram Chest for Pulmonary Embolus w Contrast (Exam End: 09/26/2024 1:37 PM) Result Value WORKSTATION ID [id number] Impression 1. No pulmonary embolism. 2. Pulmonary [...] who have questions please contact the health cna caregiver that requested your imaging first. Head wo Contrast (Generic) (Exam End: 09/26/2024 1:37 PM) Result Value WORKSTATION ID [id number] Impression 1. Stable right-sided parenchymal and subdural [...] who have questions please contact the health cna caregiver that requested your imaging first. Abdomen & Pelvis w Contrast (Exam End: 09/26/2024 1:37 PM) Result Value WORKSTATION ID [id number] Impression 1. No pulmonary embolism. 2. Pulmonary [...] who have questions please contact the health cna caregiver that requested your imaging first. Chest One View (Exam End: 09/28/2024 4:06 AM) Result Value WORKSTATION ID [id number] Impression 1. Limited examination. 2. Interval removal [...] who have questions please contact the health cna caregiver that requested your imaging first. Chest One View (Exam End: 09/28/2024 7:58 PM) Result Value WORKSTATION ID [id number] Impression 1. Slightly increased opacity in the [...] who have questions please contact the health cna caregiver that requested your imaging first. Chest One View (Exam End: 09/29/2024 1:13 PM) Result Value WORKSTATION ID [id number] Impression 1. Limited examination. 2. Stable position [...] who have questions please contact the health cna caregiver that requested your imaging first. Assessment and [...] brain wo contrast -CTA head & neck -PT/OT/TAG MARKER -Neurosurgery consulted # Leukocytosis # Pneumonia # [...] Yes Jung Yun MD Vascular Neurology Pager [phone] Neurology Attending Attestation I evaluated the patient [...] documented. Gissell Velazco MD Vascular Neurology Standard [facility] [place] Screen: This screen is [...] diet as medical provider deems appropriate. Consider TAG MARKER consult for full evaluation and diet recommendations. If NO to any of the responses, stop immediately, keep patient NPO and notify physician. * Jo Potts, RD - 10/01/2024 8:45 AM EST Nutrition Progress Note Lucero Bruno is a 74 y.o. 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 Interval History No data found. Reason for Assessment: Follow-up, Tube Feeding Nutrition Recommendations: NPO per TAG MARKER 09/30 Continue TF and limit holds as [...] steps: feeds not at goal, need for termite treater helper nutrition planif unable to advance diet Current [...] encounter: 85.5 kg (188 lb 7.9 oz). [place]en Body Weight (IBW) (kg): 45.45 Wt Readings [...] VHP rather than Nutren 1.5, team aware. TAG MARKER continues to recommend NPO per 09/30 note. LBM 09/29, optimize regimen. Per EMR, pt with 4% wt loss in <1 week (196lbs on 09/24 to 188lbs on 09/28) which is clinically significant. Unable to complete full NFPE at this time. Planned for upcoming PEG placement. 09/29: TF Dc'd 09/28 @ 1835hr. TAG MARKER continues to recommend NPO, need for alternate [...] maxillary line): Not assessed Lean Muscle Loss Sabianism region (temporalis muscle): None present Clavicle bone [...] the setting of acute illness or injury (Maribel, JPEN J Parenteral Enteral Nutr. 2012 March; [...] be 2/2 to CAA who [place] [facility] [place]man [place] subsequently developing [...] in all aspects. 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 Please encourage [...] Stand to Sit: NA Bed to Chair: [facility] lift transfer from EOB to recliner chair [...] the current findings, Anticipated Discharge Disposition (PT): senior care facility when medically ready for hospital discharge. [...] plan as stated. Time IN / OUT: [id number] Total Minutes, Physical Therapy: 28 Billing Code: TEF1 Kymberly Baptiste PT, DPT, NCS Pager: [phone] Physical Therapy Inpatient Rehabilitation Department * Rob Guzman MD - 09/30/2024 2:28 PM EST [facility] NEUROSURGERY PROGRESS NOTE ID: Lucero Bruno 74 [...] - stacey LABS: Recent Labs 09/30/2414309/29/24 0109 09/28/24 035 WBC 25.89* 26.40* 35.37* HGB 10.1* 10.0* 11.0* PLATELET 376* 397* 443* Recent Labs 09/30/2414309/28/248 09/27/24 1646 NA 139 138 -- K 3.9 4.0 4.0 CL 104 106 -- CO2 25 22 -- BUN 16 21* -- CREATININE 0.47* 0.49* -- No results for input(s): PT, INR in the last 72 hours. IMAGING: Results for orders placed or performed during the hospital encounter of 09/16/24 CT Head wo Contrast (Generic) (Exam End: 09/16/2024 5:26 PM) Result Value WORKSTATION ID [id number] Impression Interval expansion of now large right-sided [...] who have questions please contact the health cna caregiver that requested your imaging first. Head wo Contrast (Generic) (Exam End: 09/16/2024 11:21 PM) Result Value WORKSTATION ID [id number] Impression CT head: 1. Interval craniotomy with [...] who have questions please contact the health cna caregiver that requested your imaging first. Venogram Brain (Exam End: 09/16/2024 11:21 PM) Result Value WORKSTATION ID [id number] head: 1. Interval craniotomy with [...] who have questions please contact the health cna caregiver that requested your imaging first. Chest One View (Exam End: 09/16/2024 11:00 PM) Result Value WORKSTATION ID [id number] Impression Satisfactorily positioned enteric and endotracheal tubes. Left lower lobe atelectasis versus pneumonia. Thank you for letting us participate in the care of this patient. If you are a health care provider and have any questions regarding this report, please contact the number below. For patients who have questions please contact the health cna caregiver that requested your imaging first. Abdomen 1 view (Generic) (Exam End: 09/16/2024 11:00 PM) Result Value WORKSTATION ID [id number] Impression Satisfactorily positioned enteric and endotracheal tubes. Left lower lobe atelectasis versus pneumonia. Thank you for letting us participate in the care of this patient. If you are a health care provider and have any questions regarding this report, please contact the number below. For patients who have questions please contact the health cna caregiver that requested your imaging first. Head wo Contrast (Generic) (Exam End: 09/17/2024 4:51 AM) Result Value WORKSTATION ID [id number] Impression Increased size and density of dominant [...] who have questions please contact the health cna caregiver that requested your imaging first. Chest One View (Exam End: 09/17/2024 2:13 PM) Result Value WORKSTATION ID [id number] Impression 1. No focal opacity in lung [...] who have questions please contact the health cna caregiver that requested your imaging first. Chest One View (Exam End: 09/18/2024 8:43 AM) Result Value WORKSTATION ID [id number] Impression Tubes and lines as described. Blunting of the left costophrenic angle suggests tiny layering left effusion with associated left basilar consolidation/atelectasis Thank you for letting us participate in the care of this patient. If you are a health care provider and have any questions regarding this report, please contact the number below. For patients who have questions please contact the health cna caregiver that requested your imaging first. Abdomen 1 view (Generic) (Exam End: 09/18/2024 12:31 PM) Result Value WORKSTATION ID [id number] Impression Dobbhoff tube tip along the greater curve of the stomach. Thank you for letting us participate in the care of this patient. If you are a health care provider and have any questions regarding this report, please contact the number below. For patients who have questions please contact the health cna caregiver that requested your imaging first. Brain wwo Contrast (Generic) (Exam End: 09/19/2024 5:43 PM) Result Value WORKSTATION ID [id number] Impression Unchanged size of large right cerebral hemisphere ICH status post partial evacuation. Numerous small foci of decreased acute infarction both along and separate from the site of hemorrhage. These foci are present in both cerebral hemispheres and have a pattern most consistent with embolic infarction. No evidence of LEADERSHIP COACH malignancy Thank you for letting us participate in the care of this patient. If you are a health care provider and have any questions regarding this report, please contact the number below. For patients who have questions please contact the health cna caregiver that requested your imaging first. Head wo Contrast (Generic) (Exam End: 09/21/2024 3:50 AM) Result Value WORKSTATION ID [id number] Impression Stable hemorrhage right temporal, parietal, right [...] who have questions please contact the health cna caregiver that requested your imaging first. Abdomen 1 view (Generic) (Exam End: 09/21/2024 2:01 PM) Result Value WORKSTATION ID [id number] Impression Dobbhoff tube and enteric tube sidehole [...] who have questions please contact the health cna caregiver that requested your imaging first. Electronically signed by: [facility]add[facility] Cox [facility] ([phone]), at 09/21/2024 3:40 PM XR Chest One View (Exam End: 09/21/2024 2:01 PM) Result Value WORKSTATION ID [id number] Impression ET tube with tip projecting approximately [...] who have questions please contact the health cna caregiver that requested your imaging first. Head wo Contrast (Generic) (Exam End: 09/22/2024 4:02 AM) Result Value WORKSTATION ID [id number] Impression Stable head CT status post removal of subcutaneous drain. No new or enlarging hemorrhage. Stable pattern of mass effect Thank you for letting us participate in the care of this patient. If you are a health care provider and have any questions regarding this report, please contact the number below. For patients who have questions please contact the health cna caregiver that requested your imaging first. Angiogram Chest for Pulmonary Embolus w Contrast (Exam End: 09/26/2024 1:37 PM) Result Value WORKSTATION ID [id number] Impression 1. No pulmonary embolism. 2. Pulmonary [...] who have questions please contact the health cna caregiver that requested your imaging first. Head wo Contrast (Generic) (Exam End: 09/26/2024 1:37 PM) Result Value WORKSTATION ID [id number] Impression 1. Stable right-sided parenchymal and subdural [...] who have questions please contact the health cna caregiver that requested your imaging first. Abdomen & Pelvis w Contrast (Exam End: 09/26/2024 1:37 PM) Result Value WORKSTATION ID [id number] Impression 1. No pulmonary embolism. 2. Pulmonary [...] who have questions please contact the health cna caregiver that requested your imaging first. Chest One View (Exam End: 09/28/2024 4:06 AM) Result Value WORKSTATION ID [id number] Impression 1. Limited examination. 2. Interval removal [...] who have questions please contact the health cna caregiver that requested your imaging first. Chest One View (Exam End: 09/28/2024 7:58 PM) Result Value WORKSTATION ID [id number] Impression 1. Slightly increased opacity in the [...] who have questions please contact the health cna caregiver that requested your imaging first. Chest One View (Exam End: 09/29/2024 1:13 PM) Result Value WORKSTATION ID [id number] Impression 1. Limited examination. 2. Stable position [...] who have questions please contact the health cna caregiver that requested your imaging first. Assessment: 74 y.o. female with PMHx notable for Afib (taking ASA, previously on apixaban-stopped taking after IPH in April 2024), CHRISTOPHER, HLD, BMI of 36, prior IPH 04/2024 who presented to hospital 09/16/24 for placement of Watchman with cardiology. She developed headaches and nausea post op and CT scan noted large R xzyywnte-tahwnbq-tipucnarl IPH. Now s/p R craniotomy for IPH [...] -SBP 90-160 -DVT ppx with SCDs, SQH -TAG MARKER for diet advancement -Na goal eunatremia -Rest of care per primary -f/u in 1 mos w/ CTH in clinic with JESSI -Will s/o For questions please call NSGY pager [phone] Rob Guzman MD Clinical Documentation Improvement: Active Hospital Problems Diagnosis Presence of Watchman left atrial appendage closure device S/P craniotomy Resolved Hospital Problems No resolved problems to display. * Diana Lucas, OT - 09/30/2024 2:16 PM EST Occupational Therapy Treatment Note Treatment Number OT: 3 Patient Dx:Lucero Bruno is a 74 y.o. female admitted on 09/16/2024. 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 who [place] [facility] [place] watchman procedure subsequently [...] PRN 09/16/242204 S: Pt received in bed without visitors [...] and therapy goals Anticipated Discharge Disposition (OT): senior care facility Equipment Recommendations: Equipment Needs Upon Discharge [...] 2-3 times/wk Total Minutes, Occupational Therapy: 36 ([id number]) Diana Lucas OTR/L They/Them Occupational Therapy Rehabilitation Department Pager # [phone] * Agustin Loving PA - 09/30/2024 12:26 [...] and prior IPH (04/2024) who presented [place] [facility] [place] 09[place]16[place] for placement of Watchman with cardiology. She developed headaches and nausea post-operatively and was found to have a large R iclghdgs-jqthgyh-zsnmcdgva IPH, now s/p craniotomy. Patient was intubated from 09/16-09/21 with extubation complicated by stridor requiring re-intubation from 09/21-09/26 (11 days total). TAG MARKER has been following since 09/27 for communication [...] today Bolus Presentation(s): Tested Comments Thin liquids Carlyss thick liquids Honey thick liquids Pureed solids [...] significant other and participated in limited writing w/TAG MARKER, primarily single words. Aubree remains unable to [...] chips when she is alert and accepting. TAG MARKER will continue to follow for serial reassessment, [...] in ongoing cognitive-communication assessment Plan: Therapy Frequency (TAG MARKER Eval): 3-5 times/wk Patient is in agreement with the plan of care. Total Minutes (Speech Language Pathology): 24 Lamont Holm MS, [facility]TAG MARKER Speech-Language Pathology Inpatient Rehabilitation Department Pager # [phone] * Gissell Velazco MD - 09/30/2024 8:02 [...] Time acute stroke team was at bedside:: 164 CT interpretation date: 09/16/24 CT interpretation time:: 144 Was dysphagia screen performed?: No CC: R [...] 09/16/2024 5:26 PM) Result Value WORKSTATION ID [id number] Impression Interval expansion of now large right-sided [...] who have questions please contact the health cna caregiver that requested your imaging first. Head wo Contrast (Generic) (Exam End: 09/16/2024 11:21 PM) Result Value WORKSTATION ID [id number] Impression CT head: 1. Interval craniotomy with [...] who have questions please contact the health cna caregiver that requested your imaging first. Venogram Brain (Exam End: 09/16/2024 11:21 PM) Result Value WORKSTATION ID [id number] Impression CT head: 1. Interval craniotomy with [...] who have questions please contact the health cna caregiver that requested your imaging first. Chest One View (Exam End: 09/16/2024 11:00 PM) Result Value WORKSTATION ID [id number] Impression Satisfactorily positioned enteric and endotracheal tubes. Left lower lobe atelectasis versus pneumonia. Thank you for letting us participate in the care of this patient. If you are a health care provider and have any questions regarding this report, please contact the number below. For patients who have questions please contact the health cna caregiver that requested your imaging first. Abdomen 1 view (Generic) (Exam End: 09/16/2024 11:00 PM) Result Value WORKSTATION ID [id number] Impression Satisfactorily positioned enteric and endotracheal tubes. Left lower lobe atelectasis versus pneumonia. Thank you for letting us participate in the care of this patient. If you are a health care provider and have any questions regarding this report, please contact the number below. For patients who have questions please contact the health cna caregiver that requested your imaging first. Head wo Contrast (Generic) (Exam End: 09/17/2024 4:51 AM) Result Value WORKSTATION ID [id number] Impression Increased size and density of dominant [...] who have questions please contact the health cna caregiver that requested your imaging first. Chest One View (Exam End: 09/17/2024 2:13 PM) Result Value WORKSTATION ID [id number] Impression 1. No focal opacity in lung [...] who have questions please contact the health cna caregiver that requested your imaging first. Chest One View (Exam End: 09/18/2024 8:43 AM) Result Value WORKSTATION ID [id number] Impression Tubes and lines as described. Blunting of the left costophrenic angle suggests tiny layering left effusion with associated left basilar consolidation/atelectasis Thank you for letting us participate in the care of this patient. If you are a health care provider and have any questions regarding this report, please contact the number below. For patients who have questions please contact the health cna caregiver that requested your imaging first. Abdomen 1 view (Generic) (Exam End: 09/18/2024 12:31 PM) Result Value WORKSTATION ID [id number] Impression Dobbhoff tube tip along the greater curve of the stomach. Thank you for letting us participate in the care of this patient. If you are a health care provider and have any questions regarding this report, please contact the number below. For patients who have questions please contact the health cna caregiver that requested your imaging first. Brain wwo Contrast (Generic) (Exam End: 09/19/2024 5:43 PM) Result Value WORKSTATION ID [id number] Impression Unchanged size of large right cerebral hemisphere ICH status post partial evacuation. Numerous small foci of decreased acute infarction both along and separate from the site of hemorrhage. These foci are present in both cerebral hemispheres and have a pattern most consistent with embolic infarction. No evidence of LEADERSHIP COACH malignancy Thank you for letting us participate in the care of this patient. If you are a health care provider and have any questions regarding this report, please contact the number below. For patients who have questions please contact the health cna caregiver that requested your imaging first. Head wo Contrast (Generic) (Exam End: 09/21/2024 3:50 AM) Result Value WORKSTATION ID [id number] Impression Stable hemorrhage right temporal, parietal, right [...] who have questions please contact the health cna caregiver that requested your imaging first. Abdomen 1 view (Generic) (Exam End: 09/21/2024 2:01 PM) Result Value WORKSTATION ID [id number] Impression Dobbhoff tube and enteric tube sidehole [...] who have questions please contact the health cna caregiver that requested your imaging first. Chest One View (Exam End: 09/21/2024 2:01 PM) Result Value WORKSTATION ID [id number] Impression ET tube with tip projecting approximately [...] who have questions please contact the health cna caregiver that requested your imaging first. Head wo Contrast (Generic) (Exam End: 09/22/2024 4:02 AM) Result Value WORKSTATION ID [id number] Impression Stable head CT status post removal of subcutaneous drain. No new or enlarging hemorrhage. Stable pattern of mass effect Thank you for letting us participate in the care of this patient. If you are a health care provider and have any questions regarding this report, please contact the number below. For patients who have questions please contact the health cna caregiver that requested your imaging first. Angiogram Chest for Pulmonary Embolus w Contrast (Exam End: 09/26/2024 1:37 PM) Result Value WORKSTATION ID [id number] Impression 1. No pulmonary embolism. 2. Pulmonary [...] who have questions please contact the health cna caregiver that requested your imaging first. Head wo Contrast (Generic) (Exam End: 09/26/2024 1:37 PM) Result Value WORKSTATION ID [id number] Impression 1. Stable right-sided parenchymal and subdural [...] who have questions please contact the health cna caregiver that requested your imaging first. Abdomen & Pelvis w Contrast (Exam End: 09/26/2024 1:37 PM) Result Value WORKSTATION ID [id number] Impression 1. No pulmonary embolism. 2. Pulmonary [...] who have questions please contact the health cna caregiver that requested your imaging first. Chest One View (Exam End: 09/28/2024 4:06 AM) Result Value WORKSTATION ID [id number] Impression 1. Limited examination. 2. Interval removal [...] who have questions please contact the health cna caregiver that requested your imaging first. Chest One View (Exam End: 09/28/2024 7:58 PM) Result Value WORKSTATION ID [id number] Impression 1. Slightly increased opacity in the [...] who have questions please contact the health cna caregiver that requested your imaging first. Chest One View (Exam End: 09/29/2024 1:13 PM) Result Value WORKSTATION ID [id number] Impression 1. Limited examination. 2. Stable position [...] who have questions please contact the health cna caregiver that requested your imaging first. Assessment and [...] through clipboard. Alteplase: IV Thrombolytics decision time: 1715 Was IV Thrombolytics given?: No # R IPH -Admit to neurology, NSCU level of care -Neuro check & vitals Q2hrs / Q2hrs -Permissive HTN, treat SBP >220 with prn labetalol, enalaprilat -Check CBC, BMP, LFT, lipid profile, HbA1c, Mg, Phos, UA -TTE -12 lead EKG -Telemetry -MRI brain wo contrast -CTA head & neck -PT/OT/TAG MARKER -Neurosurgery consulted # Leukocytosis # Pneumonia - [...] Yes Jung Yun MD Vascular Neurology Pager [phone] Neurology Attending Attestation I evaluated the patient [...] documented. Gissell Velazco MD Vascular Neurology Standard [facility] [place]allow Screen: This screen is [...] diet as medical provider deems appropriate. Consider TAG MARKER consult for full evaluation and diet recommendations. [...] and prior IPH (04/2024) who [place] [facility] [place] for placement of Watchman with cardiology. She developed headaches and nausea post-operatively and was found to have a large R uckmekmd-pkbgfbt-qqglxtwpr IPH, now s/p craniotomy. Patient was intubated from 09/16-09/21 with extubation complicated by stridor requiring re-intubation from 09/21-09/26 (11 days total). TAG MARKER has been following since 09/27 for communication [...] today Bolus Presentation(s): Tested Comments Thin liquids Carlyss thick liquids Honey thick liquids Pureed solids [...] (patient reports cough) with approximately 50% of [place] ice trials Pt complaint of food getting [...] safe swallowing strategies. ONGOING Plan: Therapy Frequency (TAG MARKER Eval): 3-5 times/wk Patient is in agreement with the plan of care. Total Minutes (Speech Language Pathology): 40 Areli Hathaway MS, CCC-TAG MARKER Speech-Language Pathologist Inpatient Rehabilitation Pager # [phone] * Chino Washburn MD - 09/29/2024 2:49 [...] reviewed Procedures - reveiwed External Records in [facility] - reviewed. Impression & Recommendations: 74 year-old [...] ID team will sign off. Please page [phone] with any questions. Chino Washburn MD Infectious [...] Gordon. Shaun Mccarthy MD * So Guillen, ASHLEY - 09/29/2024 12:12 PM EST Nutrition Progress Note Lucero Bruno is a 74 y.o. 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 Interval History No data found. Reason for Assessment: Follow-up, Tube Feeding Nutrition Recommendations: NPO per TAG MARKER 09/28 Resume TF and limit holds as [...] steps: feeds not at goal, need for skilled nursing nutrition planif unable to advance diet Current [...] encounter: 85.4 kg (188 lb 4.4 oz). Alden Body Weight (IBW) (kg): 45.45 Wt Readings [...] interview: 09/29: TF Dc'd 09/28 @ 1835hr. TAG MARKER continues to recommend NPO, need for alternate [...] Exam: Not performed Malnutrition Diagnosis: Not identified (Mari et al, JPEN J Parenteral Enteral Nutr. 2011; 36(3): 273-83) Nutrition to continue to follow up while inpatient So Stephen, MS, RDN, LD Clinical Nutrition * Gissell [...] Time acute stroke team was at bedside:: 164 CT interpretation date: 09/16/24 CT interpretation time:: 1445 Was dysphagia screen performed?: No CC: R [facility] ID: Lucero Bruno is a 74 y.o. [...] PEG tube. Alteplase: IV Thrombolytics decision time: 1715 Was IV Thrombolytics given?: No # R IPH -Admit to neurology, NSCU level of care -Neuro check & vitals Q2hrs / Q2hrs -Permissive HTN, treat SBP >220 with prn labetalol, enalaprilat -Check CBC, BMP, LFT, lipid profile, HbA1c, Mg, Phos, UA -TTE -12 lead EKG -Telemetry -MRI brain wo contrast -CTA head & neck -PT/OT/TAG MARKER -Neurosurgery consulted # Leukocytosis # Pneumonia - repeat CXR 09/29 - on Zosyn (09/24 - 09/29) - CBC - ID consult - C. Diff negative # Prophylaxis -Lovenox 40 mg QHS -RBOs -SCDs # Supportive Care -Pantoprazole 40 mg IV -NPO -Tylenol PRN -Up with assistance # FULL code Stroke Navigator Completed: Yes Jung Yun MD Vascular Neurology Pager [phone] Neurology Attending Attestation I evaluated the patient [...] documented. Gissell Velazco MD Vascular Neurology Standard [facility] [place]allow Screen: This screen is [...] diet as medical provider deems appropriate. Consider TAG MARKER consult for full evaluation and diet recommendations. If NO to any of the responses, stop immediately, keep patient NPO and notify physician. * Rob Guzman MD - 09/29/2024 7:29 AM EST [facility] NEUROSURGERY PROGRESS NOTE ID: Lucero Bruno 74 [...] CDI - stacey LABS: Recent Labs 09/29/24 0109 09/28/248 09/27/24 0138 WBC 26.40* 35.37* 39.03* HGB 10.0* 11.0* 12.5 PLATELET 397* 443* 510* Recent Labs 09/28/2435709/27/24 1646 09/27/24 013 NA 138 -- 139 K 4.0 4.0 3.8 CL 106 -- 103 CO2 22 -- 25 BUN 21* -- 17 CREATININE 0.49* -- 0.51* No results for input(s): PT, INR in the last 72 hours. IMAGING: Results for orders placed or performed during the hospital encounter of 09/16/24 CT Head wo Contrast (Generic) (Exam End: 09/16/2024 5:26 PM) Result Value WORKSTATION ID [id number] Impression Interval expansion of now large right-sided [...] who have questions please contact the health cna caregiver that requested your imaging first. Head wo Contrast (Generic) (Exam End: 09/16/2024 11:21 PM) Result Value WORKSTATION ID [id number] Impression CT head: 1. Interval craniotomy with [...] who have questions please contact the health cna caregiver that requested your imaging first. Venogram Brain (Exam End: 09/16/2024 11:21 PM) Result Value WORKSTATION ID [id number] Impression CT head: 1. Interval craniotomy with [...] who have questions please contact the health cna caregiver that requested your imaging first. Chest One View (Exam End: 09/16/2024 11:00 PM) Result Value WORKSTATION ID [id number] Impression Satisfactorily positioned enteric and endotracheal tubes. Left lower lobe atelectasis versus pneumonia. Thank you for letting us participate in the care of this patient. If you are a health care provider and have any questions regarding this report, please contact the number below. For patients who have questions please contact the health cna caregiver that requested your imaging first. Abdomen 1 view (Generic) (Exam End: 09/16/2024 11:00 PM) Result Value WORKSTATION ID [id number] Impression Satisfactorily positioned enteric and endotracheal tubes. Left lower lobe atelectasis versus pneumonia. Thank you for letting us participate in the care of this patient. If you are a health care provider and have any questions regarding this report, please contact the number below. For patients who have questions please contact the health cna caregiver that requested your imaging first. Head wo Contrast (Generic) (Exam End: 09/17/2024 4:51 AM) Result Value WORKSTATION ID [id number] Impression Increased size and density of dominant [...] who have questions please contact the health cna caregiver that requested your imaging first. Chest One View (Exam End: 09/17/2024 2:13 PM) Result Value WORKSTATION ID [id number] Impression 1. No focal opacity in lung [...] who have questions please contact the health cna caregiver that requested your imaging first. Chest One View (Exam End: 09/18/2024 8:43 AM) Result Value WORKSTATION ID [id number] Impression Tubes and lines as described. Blunting of the left costophrenic angle suggests tiny layering left effusion with associated left basilar consolidation/atelectasis Thank you for letting us participate in the care of this patient. If you are a health care provider and have any questions regarding this report, please contact the number below. For patients who have questions please contact the health cna caregiver that requested your imaging first. Abdomen 1 view (Generic) (Exam End: 09/18/2024 12:31 PM) Result Value WORKSTATION ID [id number] Impression Dobbhoff tube tip along the greater curve of the stomach. Thank you for letting us participate in the care of this patient. If you are a health care provider and have any questions regarding this report, please contact the number below. For patients who have questions please contact the health cna caregiver that requested your imaging first. Brain wwo Contrast (Generic) (Exam End: 09/19/2024 5:43 PM) Result Value WORKSTATION ID [id number] Impression Unchanged size of large right cerebral hemisphere ICH status post partial evacuation. Numerous small foci of decreased acute infarction both along and separate from the site of hemorrhage. These foci are present in both cerebral hemispheres and have a pattern most consistent with embolic infarction. No evidence of LEADERSHIP COACH malignancy Thank you for letting us participate in the care of this patient. If you are a health care provider and have any questions regarding this report, please contact the number below. For patients who have questions please contact the health cna caregiver that requested your imaging first. Head wo Contrast (Generic) (Exam End: 09/21/2024 3:50 AM) Result Value WORKSTATION ID [id number] Impression Stable hemorrhage right temporal, parietal, right [...] who have questions please contact the health cna caregiver that requested your imaging first. Abdomen 1 view (Generic) (Exam End: 09/21/2024 2:01 PM) Result Value WORKSTATION ID [id number] Impression Dobbhoff tube and enteric tube sidehole [...] who have questions please contact the health cna caregiver that requested your imaging first. Chest One View (Exam End: 09/21/2024 2:01 PM) Result Value WORKSTATION ID [id number] Impression ET tube with tip projecting approximately [...] who have questions please contact the health cna caregiver that requested your imaging first. Head wo Contrast (Generic) (Exam End: 09/22/2024 4:02 AM) Result Value WORKSTATION ID [id number] Impression Stable head CT status post removal of subcutaneous drain. No new or enlarging hemorrhage. Stable pattern of mass effect Thank you for letting us participate in the care of this patient. If you are a health care provider and have any questions regarding this report, please contact the number below. For patients who have questions please contact the health cna caregiver that requested your imaging first. Angiogram Chest for Pulmonary Embolus w Contrast (Exam End: 09/26/2024 1:37 PM) Result Value WORKSTATION ID [id number] Impression 1. No pulmonary embolism. 2. Pulmonary [...] who have questions please contact the health cna caregiver that requested your imaging first. Head wo Contrast (Generic) (Exam End: 09/26/2024 1:37 PM) Result Value WORKSTATION ID [id number] Impression 1. Stable right-sided parenchymal and subdural [...] who have questions please contact the health cna caregiver that requested your imaging first. Abdomen & Pelvis w Contrast (Exam End: 09/26/2024 1:37 PM) Result Value WORKSTATION ID [id number] Impression 1. No pulmonary embolism. 2. Pulmonary [...] who have questions please contact the health cna caregiver that requested your imaging first. Chest One View (Exam End: 09/28/2024 4:06 AM) Result Value WORKSTATION ID [id number] Impression 1. Limited examination. 2. Interval removal [...] who have questions please contact the health cna caregiver that requested your imaging first. Chest One View (Exam End: 09/28/2024 7:58 PM) Result Value WORKSTATION ID [id number] Impression 1. Slightly increased opacity in the [...] who have questions please contact the health cna caregiver that requested your imaging first. Assessment: 74 y.o. female with PMHx notable for Afib (taking ASA, previously on apixaban-stopped taking after IPH in April 2024), CHRISTOPHER, HLD, BMI of 36, prior IPH 04/2024 who presented to hospital 09/16/24 for placement of Watchman with cardiology. She developed headaches and nausea post op and CT scan noted large R sbkcefej-afwrhxi-ehuuhewmb IPH. Now s/p R craniotomy for IPH [...] -SBP 90-160 -DVT ppx with SCDs, SQH -TAG MARKER for diet advancement -Na goal eunatremia -Rest of care per primary For questions please call [employer] pager [phone] Rob Guzman MD Clinical Documentation Improvement: Active [...] be 2/2 to CAA who [place] [facility] [place] watchman [place] subsequently developing [...] in all aspects. 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 [...] plan as stated. 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 Clinical Course/NCCU Course: Post watchman procedure while pt was in PACU she developed severe 09/02 CABA, nausea, and emesis. Shewas heparinized during [...] degrees of oral suctioning but improved thereafter. TAG MARKER evaluations ongoing, but given degree of dysphagia, [...] BP (Arterial Line): -- Intake/Output: I/O 09/25 0709/26 0709/26 0709/27 0709/27 0709/28 0709/28 0709/29 0700 P.O. 0 0 0 0 I.V. [...] 09/18/24599 Site Signs/Symptoms no redness;no swelling;no warmth 09/18/24 06 PIV 09/16/24 1305 1 in length;18 gauge median cubital vein (antecubital fossa), right (Active) Indication/Daily Review of Necessity medication therapy intermittent 09/18/24599 Site Preparation/Maintenance dressing: dry and intact 09/18/24599 Securement catheter stabilization device, secured with 09/18/24599 Patency/Maintenance flushed without difficulty 09/18/24599 Phlebitis 0-->no symptoms 09/18/24599 Infiltration 0-->no symptoms 09/18/24599 Site Signs/Symptoms no swelling;no warmth;no redness 09/18/24 0600 PIV 09/16/24 2216 20 gauge median cubital vein (antecubital fossa), left (Active) Indication/Daily Review of Necessity medication therapy intermittent 09/18/24 06 Site Preparation/Maintenance dressing: dry and intact 09/18/24 06 Securement catheter stabilization device, secured with 09/18/24 06 Patency/Maintenance flushed without difficulty 09/18/24599 Phlebitis 0-->no symptoms 09/18/24599 Infiltration 0-->no symptoms 09/18/24599 Site Signs/Symptoms no swelling;no warmth;no redness 09/18/24599 Drain/Device Site 09/16/24 Right parietal region collapsible closed device (Active) Drainage Characteristics/Odor serosanguineous 09/18/24599 Drainage Characteristics/Odor (in device) sanguineous 09/17/24 1749 Irrigation/Flush (mL) 0 (mL) 09/18/24 1248 General Output (mL) 30 09/18/24 1248 Net Drain Output (mL) 30 (mL) 09/18/24 1248 Urethral Catheter 09/16/24 latex 14 5 10 (Active) Indication/Necessity Q1-2hr UOP in ICU patient without alternative 09/18/24199 Securement secured to upper leg with adhesive [...] skin breakdown;no drainage Tolerance no adverse signs/symptoms 09/18/24199 Drainage Color yellow 09/17/24 0336 Flush/Irrigation flushed with;water 09/17/241999 Irrigation/Flush (mL) 70 (mL) 09/17/241999 Tube Intake (mL) 33 09/17/242199 General Output (mL) 25 09/17/24 0557 Net Naso/Oral Volume (mL) 33 (mL) 09/17/242199 Naso/Oral Tube 09/18/24 1229 small bore;nonweighted right [...] swelling;no warmth 09/17/241999 Dressing other (see comments) 09/16/24 2047 Output (mL) 0 09/17/24 0900 Labs: Recent Results (from the past 24 [...] POC 163 65 - 199 mg/dL Imaging: [facility] 09/16 Interval expansion of now large right-sided [...] QTC Calculated (Bezet) 446 ms Calculated P [place] 36 degrees Calculated R [place] -17 degrees Calculated T [place] 28 degrees INTERPRETATION Normal sinus rhythm Normal ECG When compared with ECG of 24-OCT-2024 13:08, No significant change was found Confirmed [...] 2/2 to CAA who developed sudden onset / CABA post watchman procedure found to havea [...] DHT in place for enteral nutrition -ongoing TAG MARKER evaluation: currently NPO -anticipate PEG placement - [...] Dispo: NCCU ADRIANA Pace 09/28/2024 NCCU pager #[phone] * Dheeraj Moreira - 09/28/2024 1:19 PM EST Channeler Encounter Note Patient Name: Lucero Bruno : [id number] MR#: [id number] Admit Date: 09/16/2024 10:06 AM Hospital Day 12 days Narrative:Visited to introduce and assess acceptance of Channeler services. Assessment:Family coping positively with stresses of illness/hospitalization at this time. I met with patient two friends in hallway and patient has family care and support. Family is taking one day at time and shared that she is getting better slowly. Intervention and Outcome:Provided emotional, spiritual support and listening presence. Channeler services accepted. Conversation to build trusting relationship. Provided pastoral presence. Provided spiritual guidance. Follow-up: yes Time in Direct Care:04 Mins Dheeraj Moreira 09/28/2024 * Areli Hathaway, TAG MARKER - 09/28/2024 12:58 PM EST Speech Therapy Note Patient Profile: Lucero Bruno is a 74 y.o. female with PMHx of A-fib, CHRISTOPHER, HLD, and prior IPH (04/2024) who [place] [facility] [place] for placement of Watchman with cardiology. She developed headaches and nausea post-operatively and was found to have a large R qvfonatg-xluvthb-cmbuogwxo IPH, now s/p craniotomy. Patient was intubated from 09/16-09/21 with extubation complicated by stridor requiring re-intubation from 09/21-09/26 (11 days total). TAG MARKER has been following since 09/27 for communication [...] Comments Thin liquids X Water via swab Carlyss thick liquids Honey thick liquids Pureed solids Dysphagia soft Mechanical soft Regular solids Pills X Ice chips, [place] ice Other Oral Preparatory Phase Mastication: N/A [...] throat clear: Throat clearing with 25% of [place] ice trials, none with single ice chips [...] of ice chips, water via swabs, and [place] ice. She benefited from verbal cues for physical orientationdue to preexisting visual field cuts and/or inattention. Aubree's swallow was characterized by minimal lingual movements with eventual swallow initiation following a prolonged period of oral holding. She presented with inconsistent signs of aspiration (coughing) with [place] ice and none with small amounts of [...] safe swallowing strategies. NEW Plan: Therapy Frequency (TAG MARKER Eval): 3-5 times/wk Patient is in agreement with the plan of care. Total Minutes (Speech Language Pathology): 40 Areli Hathaway MS, CCC-TAG MARKER Speech-Language Pathologist Inpatient Rehabilitation Pager # [phone] * Diana Lucas, OT - 09/28/2024 11:50 AM EST Occupational Therapy Treatment Note Treatment Number OT: 2 Patient Dx:Lucero Bruno is a 74 y.o. female admitted on 09/16/2024. 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 who presented [place] [facility] [place] for watchman procedure subsequently [...] 09/16/242204 Unscheduled Up with assistance PRN 09/16/242204 Interval History: 09/26 extubated S: Pt received [...] and therapy goals Anticipated Discharge Disposition (OT): senior care facility Equipment Recommendations: Equipment Needs Upon Discharge [...] 2-3 times/wk Total Minutes, Occupational Therapy: 34 ([phone]) Diana Lucas OTR/L They/Them Occupational Therapy Rehabilitation Department Pager # [phone] * Areli Hathaway TAG MARKER - 09/28/2024 11:00 AM EST Speech Pathology Contact Note Chart reviewed. Attempted to see patient for dysphagia management; however, shortly into our session she became tachycardic and RN requested we defer. We will follow up on next treatment date as schedule allows. Please secure chat with questions, thanks! Areli Hathaway, MS, [facility])-TAG MARKER Speech-Language Pathologist Inpatient Rehabilitation Pager # [phone] * Librado Patel MD - 09/28/2024 9:59 [...] CARLY insulin lispro 2-12 Units Subcutaneous Q4H CALRY dilTIAZem 90 mg Per NG tube Q6H [...] BP (Arterial Line): -- Intake/Output: I/O 09/25 P.O. 0 0 0 I.V. (mL/kg/hr) 1360.8 [...] without difficulty 09/27/24 1200 Phlebitis 0-->no symptoms 09/27/241199 Infiltration 0-->no symptoms 09/27/241199 Site Signs/Symptoms no redness;no swelling;no warmth;no pain;no palpable cord;no streak formation;no drainage 09/26/241999 Rectal Tube 09/26/24 0245 fecal management system (Active) Balloon Inflation Volume (mL) 45 09/27/24799 Reposition balloon deflated;rectal tube advanced slightly 09/26/24 0744 Outcome comfort enhanced 09/27/24799 Tolerance no signs/symptoms [...] 09/27/24799 Flush/Irrigation water 09/27/24799 Tubing Change 09/24/24 09/22/24799 Irrigation/Flush (mL) 30 (mL) 09/27/241199 Tube Intake (mL) 160 09/27/24799 General Output (mL) 0 09/26/24399 Net Naso/Oral Volume (mL) 30 (mL) 09/27/24 1200 Incision 09/16/24 Right parietal region other (see comments) (Active) Incision WDL 09/27/24799 Dressing Appearance dry;intact 09/27/24799 Appearance stacey intact;no drainage;no redness;no swelling;no tenderness;no warmth 09/26/24799 Drainage Characteristics/Odor serosanguineous 09/21/24729 Drainage Amount none 11/03/24 0800 Dressing open to air 09/27/24 0800 Output (mL) 0 09/26/24 0800 Labs: No results found for: PHART, PO2ART, UVR1AEH Recent Labs 09/28/24 0358 WBC 35.37* RBC [...] con't suctioning prn FEN/Renal: - NPO per TAG MARKER - TF GI: diarrhea/con't rectal tube ID: [...] Guzman MD - 09/28/2024 7:17 AM EST [facility] NEUROSURGERY PROGRESS NOTE ID: Lucero Bruno 74 [...] Incision CDI - stacey LABS: Recent Labs 09/28/2435709/27/24 0138 09/26/24 0031 WBC 35.37* 39.03* 30.94* [...] 09/16/2024 5:26 PM) Result Value WORKSTATION ID [id number] Impression Interval expansion of now large right-sided [...] who have questions please contact the health cna caregiver that requested your imaging first. Head wo Contrast (Generic) (Exam End: 09/16/2024 11:21 PM) Result Value WORKSTATION ID [id number] Impression CT head: 1. Interval craniotomy with [...] who have questions please contact the health cna caregiver that requested your imaging first. Venogram Brain (Exam End: 09/16/2024 11:21 PM) Result Value WORKSTATION ID [id number] Impression CT head: 1. Interval craniotomy with [...] who have questions please contact the health cna caregiver that requested your imaging first. Chest One View (Exam End: 09/16/2024 11:00 PM) Result Value WORKSTATION ID [id number] Impression Satisfactorily positioned enteric and endotracheal tubes. Left lower lobe atelectasis versus pneumonia. Thank you for letting us participate in the care of this patient. If you are a health care provider and have any questions regarding this report, please contact the number below. For patients who have questions please contact the health cna caregiver that requested your imaging first. Abdomen 1 view (Generic) (Exam End: 09/16/2024 11:00 PM) Result Value WORKSTATION ID [id number] Impression Satisfactorily positioned enteric and endotracheal tubes. Left lower lobe atelectasis versus pneumonia. Thank you for letting us participate in the care of this patient. If you are a health care provider and have any questions regarding this report, please contact the number below. For patients who have questions please contact the health cna caregiver that requested your imaging first. Head wo Contrast (Generic) (Exam End: 09/17/2024 4:51 AM) Result Value WORKSTATION ID [id number] Impression Increased size and density of dominant [...] who have questions please contact the health cna caregiver that requested your imaging first. Chest One View (Exam End: 09/17/2024 2:13 PM) Result Value WORKSTATION ID [id number] Impression 1. No focal opacity in lung [...] who have questions please contact the health cna caregiver that requested your imaging first. Chest One View (Exam End: 09/18/2024 8:43 AM) Result Value WORKSTATION ID [id number] Impression Tubes and lines as described. Blunting of the left costophrenic angle suggests tiny layering left effusion with associated left basilar consolidation/atelectasis Thank you for letting us participate in the care of this patient. If you are a health care provider and have any questions regarding this report, please contact the number below. For patients who have questions please contact the health cna caregiver that requested your imaging first. Abdomen 1 view (Generic) (Exam End: 09/18/2024 12:31 PM) Result Value WORKSTATION ID [id number] Impression Dobbhoff tube tip along the greater curve of the stomach. Thank you for letting us participate in the care of this patient. If you are a health care provider and have any questions regarding this report, please contact the number below. For patients who have questions please contact the health cna caregiver that requested your imaging first. Brain wwo Contrast (Generic) (Exam End: 09/19/2024 5:43 PM) Result Value WORKSTATION ID [id number] Impression Unchanged size of large right cerebral hemisphere ICH status post partial evacuation. Numerous small foci of decreased acute infarction both along and separate from the site of hemorrhage. These foci are present in both cerebral hemispheres and have a pattern most consistent with embolic infarction. No evidence of LEADERSHIP COACH malignancy Thank you for letting us participate in the care of this patient. If you are a health care provider and have any questions regarding this report, please contact the number below. For patients who have questions please contact the health cna caregiver that requested your imaging first. Head wo Contrast (Generic) (Exam End: 09/21/2024 3:50 AM) Result Value WORKSTATION ID [id number] Impression Stable hemorrhage right temporal, parietal, right [...] who have questions please contact the health cna caregiver that requested your imaging first. Abdomen 1 view (Generic) (Exam End: 09/21/2024 2:01 PM) Result Value WORKSTATION ID [id number] Impression Dobbhoff tube and enteric tube sidehole [...] who have questions please contact the health cna caregiver that requested your imaging first. Chest One View (Exam End: 09/21/2024 2:01 PM) Result Value WORKSTATION ID [id number] Impression ET tube with tip projecting approximately [...] who have questions please contact the health cna caregiver that requested your imaging first. Head wo Contrast (Generic) (Exam End: 09/22/2024 4:02 AM) Result Value WORKSTATION ID [id number] Impression Stable head CT status post removal of subcutaneous drain. No new or enlarging hemorrhage. Stable pattern of mass effect Thank you for letting us participate in the care of this patient. If you are a health care provider and have any questions regarding this report, please contact the number below. For patients who have questions please contact the health cna caregiver that requested your imaging first. Angiogram Chest for Pulmonary Embolus w Contrast (Exam End: 09/26/2024 1:37 PM) Result Value WORKSTATION ID [id number] Impression 1. No pulmonary embolism. 2. Pulmonary [...] who have questions please contact the health cna caregiver that requested your imaging first. Head wo Contrast (Generic) (Exam End: 09/26/2024 1:37 PM) Result Value WORKSTATION ID [id number] Impression 1. Stable right-sided parenchymal and subdural [...] who have questions please contact the health cna caregiver that requested your imaging first. Abdomen & Pelvis w Contrast (Exam End: 09/26/2024 1:37 PM) Result Value WORKSTATION ID [id number] Impression 1. No pulmonary embolism. 2. Pulmonary [...] who have questions please contact the health cna caregiver that requested your imaging first. Chest One View (Exam End: 09/28/2024 4:06 AM) Result Value WORKSTATION ID [id number] Impression 1. Limited examination. 2. Interval removal [...] who have questions please contact the health cna caregiver that requested your imaging first. Assessment: 74 y.o. female with PMHx notable for Afib (taking ASA, previously on apixaban-stopped taking after IPH in April 2024), CHRISTOPHER, HLD, BMI of 36, prior IPH 04/2024 who presented to hospital 09/16/24 for placement of Watchman with cardiology. She developed headaches and nausea post op and CT scan noted large R pztrylrx-igvxmlb-vftgnevje IPH. Now s/p R craniotomy for IPH [...] ppx with SCDs, SQH -Hold other antiplatelets/anticoagulants -TAG MARKER for diet advancement -Na goal eunatremia -Rest of care per primary For questions please call NSGY pager [phone] Rob Guzman MD Clinical Documentation Improvement: Active [...] be 2/2 to CAA who [place] [facility] subsequently [...] was able to discuss plan with provider [facility] [id number] . Current Nutrition Regimen: Active Orders [...] potassium chloride ER OR potassium chloride ER, fvnjonc05% oral geL OR dextrose OR glucagon, bisacodyL, bacitracin zinc-polymyxin B, gelatin compressed, thrombin (Bovine) Anthropometrics: Admit Weight: 88.45 kg Estimated body mass index is 38.41 kg/m?? as calculated from the following: Height as of 09/21/24: 152.4 cm (5'). Weight as of this encounter: 89.2 kg (196 lb 10.4 oz). [place] Body Weight (IBW) (kg): 45.45 Wt Readings [...] inpatient Thank you, Diana Cárdenas RDN, LD, [facility] Clinical Nutrition * Danielle Cosby [facility] - 09/27/2024 4:50 PM EST 09/27/24 1600 [...] Guzman MD - 09/27/2024 2:08 PM EST [facility] NEUROSURGERY PROGRESS NOTE ID: Lucero Bruno 74 [...] 09/16/2024 5:26 PM) Result Value WORKSTATION ID [id number] Impression Interval expansion of now large right-sided [...] who have questions please contact the health cna caregiver that requested your imaging first. Head wo Contrast (Generic) (Exam End: 09/16/2024 11:21 PM) Result Value WORKSTATION ID [id number] Impression CT head: 1. Interval craniotomy with [...] who have questions please contact the health cna caregiver that requested your imaging first. Venogram Brain (Exam End: 09/16/2024 11:21 PM) Result Value WORKSTATION ID [id number] Impression CT head: 1. Interval craniotomy with [...] who have questions please contact the health cna caregiver that requested your imaging first. Chest One View (Exam End: 09/16/2024 11:00 PM) Result Value WORKSTATION ID [id number] Impression Satisfactorily positioned enteric and endotracheal tubes. Left lower lobe atelectasis versus pneumonia. Thank you for letting us participate in the care of this patient. If you are a health care provider and have any questions regarding this report, please contact the number below. For patients who have questions please contact the health cna caregiver that requested your imaging first. Abdomen 1 view (Generic) (Exam End: 09/16/2024 11:00 PM) Result Value WORKSTATION ID [id number] Impression Satisfactorily positioned enteric and endotracheal tubes. Left lower lobe atelectasis versus pneumonia. Thank you for letting us participate in the care of this patient. If you are a health care provider and have any questions regarding this report, please contact the number below. For patients who have questions please contact the health cna caregiver that requested your imaging first. Head wo Contrast (Generic) (Exam End: 09/17/2024 4:51 AM) Result Value WORKSTATION ID [id number] Impression Increased size and density of dominant [...] who have questions please contact the health cna caregiver that requested your imaging first. Chest One View (Exam End: 09/17/2024 2:13 PM) Result Value WORKSTATION ID [id number] Impression 1. No focal opacity in lung [...] who have questions please contact the health cna caregiver that requested your imaging first. Chest One View (Exam End: 09/18/2024 8:43 AM) Result Value WORKSTATION ID [id number] Impression Tubes and lines as described. Blunting of the left costophrenic angle suggests tiny layering left effusion with associated left basilar consolidation/atelectasis Thank you for letting us participate in the care of this patient. If you are a health care provider and have any questions regarding this report, please contact the number below. For patients who have questions please contact the health cna caregiver that requested your imaging first. Abdomen 1 view (Generic) (Exam End: 09/18/2024 12:31 PM) Result Value WORKSTATION ID [id number] Impression Dobbhoff tube tip along the greater curve of the stomach. Thank you for letting us participate in the care of this patient. If you are a health care provider and have any questions regarding this report, please contact the number below. For patients who have questions please contact the health cna caregiver that requested your imaging first. Brain wwo Contrast (Generic) (Exam End: 09/19/2024 5:43 PM) Result Value WORKSTATION ID [id number] Impression Unchanged size of large right cerebral hemisphere ICH status post partial evacuation. Numerous small foci of decreased acute infarction both along and separate from the site of hemorrhage. These foci are present in both cerebral hemispheres and have a pattern most consistent with embolic infarction. No evidence of LEADERSHIP COACH malignancy Thank you for letting us participate in the care of this patient. If you are a health care provider and have any questions regarding this report, please contact the number below. For patients who have questions please contact the health cna caregiver that requested your imaging first. Head wo Contrast (Generic) (Exam End: 09/21/2024 3:50 AM) Result Value WORKSTATION ID [id number] Impression Stable hemorrhage right temporal, parietal, right [...] who have questions please contact the health cna caregiver that requested your imaging first. Abdomen 1 view (Generic) (Exam End: 09/21/2024 2:01 PM) Result Value WORKSTATION ID [id number] Impression Dobbhoff tube and enteric tube sidehole [...] who have questions please contact the health cna caregiver that requested your imaging first. Chest One View (Exam End: 09/21/2024 2:01 PM) Result Value WORKSTATION ID [id number] Impression ET tube with tip projecting approximately [...] who have questions please contact the health cna caregiver that requested your imaging first. Head wo Contrast (Generic) (Exam End: 09/22/2024 4:02 AM) Result Value WORKSTATION ID [id number] Impression Stable head CT status post removal of subcutaneous drain. No new or enlarging hemorrhage. Stable pattern of mass effect Thank you for letting us participate in the care of this patient. If you are a health care provider and have any questions regarding this report, please contact the number below. For patients who have questions please contact the health cna caregiver that requested your imaging first. Angiogram Chest for Pulmonary Embolus w Contrast (Exam End: 09/26/2024 1:37 PM) Result Value WORKSTATION ID [id number] Impression 1. No pulmonary embolism. 2. Pulmonary [...] who have questions please contact the health cna caregiver that requested your imaging first. Head wo Contrast (Generic) (Exam End: 09/26/2024 1:37 PM) Result Value WORKSTATION ID [id number] Impression 1. Stable right-sided parenchymal and subdural [...] who have questions please contact the health cna caregiver that requested your imaging first. Abdomen & Pelvis w Contrast (Exam End: 09/26/2024 1:37 PM) Result Value WORKSTATION ID [id number] Impression 1. No pulmonary embolism. 2. Pulmonary [...] who have questions please contact the health cna caregiver that requested your imaging first. Assessment: 74 y.o. female with PMHx notable for Afib (taking ASA, previously on apixaban-stopped taking after IPH in April 2024), CHRISTOPHER, HLD, BMI of 36, prior IPH 04/2024 who presented to hospital 09/16/24 for placement of Watchman with cardiology. She developed headaches and nausea post op and CT scan noted large R pbvpxvpl-olszuqx-szzkwccoq IPH. Now s/p R craniotomy for IPH [...] ppx with SCDs, SQH -Hold other antiplatelets/anticoagulants -TAG MARKER for diet advancement -Na goal eunatremia -Rest of care per primary For questions please call NSGY pager [phone] Rob Guzman MD Clinical Documentation Improvement: Active [...] BP (Arterial Line): -- Intake/Output: I/O 09/24 0701 09/25 0709/25 0709/26 0709/26 0709/27 0709/27 0701 09/28 0700 P.O. 0 0 0 I.V. (mL/kg/hr) 1258.8 [...] cord;no streak formation;no drainage 09/26/241999 Rectal Tube 09/26/24244 fecal management system (Active) Balloon Inflation Volume [...] Characteristics yellow 09/27/24799 Irrigation/Flush (mL) 0 (mL) 11/04/24 0600 Urine Output (mL) 40 09/27/24 08 Net [...] Labs: No results found for: PHART, PO2ART, LIR6DCA Recent Labs 09/27/24 013 WBC 39.03* RBC 4.12 HGB 12.5 HCT 37.4 MCV 90.8 MCH 30.3 MCHC 33.4 PLATELET 510* RDWCV 13.3 Recent Labs 09/27/24137 NA 139 K 3.8 CL 103 CO2 [...] con't suctioning prn FEN/Renal: - NPO per TAG MARKER - TF - hill for UOP monitoring [...] be 2/2 to CAA who [place] [facility] [place] subsequently developing [...] in all aspects. 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 [...] plan as stated. Time IN / OUT: 0419-3686 Total Minutes, Physical Therapy: 22 Billing Code: TEF1 Kymberly Baptiste PT, DPT, NCS Pager: [phone] Physical Therapy Inpatient Rehabilitation Department * Ihsan [...] EST ICU PROGRESS NOTE DOA: 09/16/2024 Room: [address] [place] [address] Length of Stay: 10 ICU Length of Stay 9d 11h Lucero Bruno ( ) is a 74 y.o. 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 who presented [place] [facility] [place] watchman procedure subsequently [...] Stopped (09/26/24 0400) dexmedeTOMIDine Stopped (09/26/24 0009) PRN Meds:.docusate sodium AND sennosides, polyethylene glycoL [...] Recent Labs 09/26/24 0635 09/26/24 0031 09/25/24 0429 NA 137 137 138 K 3.7 3.7 [...] Kinney MD - 09/26/2024 7:40 AM EST [facility] NEUROSURGERY PROGRESS NOTE ID: Lucero Bruno 74 [...] ??C (99.3 ??F)] Heart Rate: [45-109] Resp: [-] BP: (73-157)/(32-101) SpO2: [90 %-99 %] Heart [...] Incision CDI - stacey LABS: Recent Labs 09/26/24 0031 09/25/24 0429 09/24/24 0500 WBC 30.94* 27.24* 19.25* HGB 10.7* 10.5* 9.7* PLATELET 434* 379* 342 Recent Labs 09/26/24 0635 09/26/24 0031 09/25/24 0429 NA 137 137 138 K 3.7 3.7 4.1 CL 104 104 102 CO2 23 23 24 BUN 23* 26* 28* CREATININE 0.53* 0.56* 0.49* No results for input(s): PT, INR in the last 72 hours. IMAGING: Results for orders placed or performed during the hospital encounter of 09/16/24 CT Head wo Contrast (Generic) (Exam End: 09/16/2024 5:26 PM) Result Value WORKSTATION ID [id number] Impression Interval expansion of now large right-sided [...] who have questions please contact the health cna caregiver that requested your imaging first. Head wo Contrast (Generic) (Exam End: 09/16/2024 11:21 PM) Result Value WORKSTATION ID [id number] Impression CT head: 1. Interval craniotomy with [...] who have questions please contact the health cna caregiver that requested your imaging first. Venogram Brain (Exam End: 09/16/2024 11:21 PM) Result Value WORKSTATION ID [id number] Impression CT head: 1. Interval craniotomy with [...] who have questions please contact the health cna caregiver that requested your imaging first. Chest One View (Exam End: 09/16/2024 11:00 PM) Result Value WORKSTATION ID [id number] Impression Satisfactorily positioned enteric and endotracheal tubes. Left lower lobe atelectasis versus pneumonia. Thank you for letting us participate in the care of this patient. If you are a health care provider and have any questions regarding this report, please contact the number below. For patients who have questions please contact the health cna caregiver that requested your imaging first. Abdomen 1 view (Generic) (Exam End: 09/16/2024 11:00 PM) Result Value WORKSTATION ID [id number] Impression Satisfactorily positioned enteric and endotracheal tubes. Left lower lobe atelectasis versus pneumonia. Thank you for letting us participate in the care of this patient. If you are a health care provider and have any questions regarding this report, please contact the number below. For patients who have questions please contact the health cna caregiver that requested your imaging first. Head wo Contrast (Generic) (Exam End: 09/17/2024 4:51 AM) Result Value WORKSTATION ID [id number] Impression Increased size and density of dominant [...] who have questions please contact the health cna caregiver that requested your imaging first. Chest One View (Exam End: 09/17/2024 2:13 PM) Result Value WORKSTATION ID [id number] Impression 1. No focal opacity in lung [...] who have questions please contact the health cna caregiver that requested your imaging first. Electronically signed by: Zoey [facility]abala [facility] ([phone]), at 09/17/2024 2:43 PM XR Chest One View (Exam End: 09/18/2024 8:43 AM) Result Value WORKSTATION ID [id number] Impression Tubes and lines as described. Blunting of the left costophrenic angle suggests tiny layering left effusion with associated left basilar consolidation/atelectasis Thank you for letting us participate in the care of this patient. If you are a health care provider and have any questions regarding this report, please contact the number below. For patients who have questions please contact the health cna caregiver that requested your imaging first. Abdomen 1 view (Generic) (Exam End: 09/18/2024 12:31 PM) Result Value WORKSTATION ID [id number] Impression Dobbhoff tube tip along the greater curve of the stomach. Thank you for letting us participate in the care of this patient. If you are a health care provider and have any questions regarding this report, please contact the number below. For patients who have questions please contact the health cna caregiver that requested your imaging first. Brain wwo Contrast (Generic) (Exam End: 09/19/2024 5:43 PM) Result Value WORKSTATION ID [id number] Impression Unchanged size of large right cerebral hemisphere ICH status post partial evacuation. Numerous small foci of decreased acute infarction both along and separate from the site of hemorrhage. These foci are present in both cerebral hemispheres and have a pattern most consistent with embolic infarction. No evidence of LEADERSHIP COACH malignancy Thank you for letting us participate in the care of this patient. If you are a health care provider and have any questions regarding this report, please contact the number below. For patients who have questions please contact the health cna caregiver that requested your imaging first. Head wo Contrast (Generic) (Exam End: 09/21/2024 3:50 AM) Result Value WORKSTATION ID [id number] Impression Stable hemorrhage right temporal, parietal, right [...] who have questions please contact the health cna caregiver that requested your imaging first. Abdomen 1 view (Generic) (Exam End: 09/21/2024 2:01 PM) Result Value WORKSTATION ID [id number] Impression Dobbhoff tube and enteric tube sidehole [...] who have questions please contact the health cna caregiver that requested your imaging first. Chest One View (Exam End: 09/21/2024 2:01 PM) Result Value WORKSTATION ID [id number] Impression ET tube with tip projecting approximately [...] who have questions please contact the health cna caregiver that requested your imaging first. Head wo Contrast (Generic) (Exam End: 09/22/2024 4:02 AM) Result Value WORKSTATION ID [id number] Impression Stable head CT status post removal of subcutaneous drain. No new or enlarging hemorrhage. Stable pattern of mass effect Thank you for letting us participate in the care of this patient. If you are a health care provider and have any questions regarding this report, please contact the number below. For patients who have questions please contact the health cna caregiver that requested your imaging first. Assessment: 74 y.o. female with PMHx notable for Afib (taking ASA, previously on apixaban-stopped taking after IPH in April 2024), CHRISTOPHER, HLD, BMI of 36, prior IPH 04/2024 who presented to hospital 09/16/24 for placement of Watchman with cardiology. She developed headaches and nausea post op and CT scan noted large R ogaabtng-cwltlgl-bsrrssivb IPH. Now s/p R craniotomy for IPH [...] primary For questions please call NS pager [phone] Brianne Kinney MD Clinical Documentation Improvement: Active [...] Kinney MD - 09/25/2024 3:30 PM EDT [facility] NEUROSURGERY PROGRESS NOTE ID: Lucero Bruno 74 [...] 09/16/2024 5:26 PM) Result Value WORKSTATION ID [id number] Impression Interval expansion of now large right-sided [...] who have questions please contact the health cna caregiver that requested your imaging first. Head wo Contrast (Generic) (Exam End: 09/16/2024 11:21 PM) Result Value WORKSTATION ID [id number] Impression CT head: 1. Interval craniotomy with [...] who have questions please contact the health cna caregiver that requested your imaging first. Venogram Brain (Exam End: 09/16/2024 11:21 PM) Result Value WORKSTATION ID [id number] Impression CT head: 1. Interval craniotomy with [...] who have questions please contact the health cna caregiver that requested your imaging first. Chest One View (Exam End: 09/16/2024 11:00 PM) Result Value WORKSTATION ID [id number] Impression Satisfactorily positioned enteric and endotracheal tubes. Left lower lobe atelectasis versus pneumonia. Thank you for letting us participate in the care of this patient. If you are a health care provider and have any questions regarding this report, please contact the number below. For patients who have questions please contact the health cna caregiver that requested your imaging first. Abdomen 1 view (Generic) (Exam End: 09/16/2024 11:00 PM) Result Value WORKSTATION ID [id number] Impression Satisfactorily positioned enteric and endotracheal tubes. Left lower lobe atelectasis versus pneumonia. Thank you for letting us participate in the care of this patient. If you are a health care provider and have any questions regarding this report, please contact the number below. For patients who have questions please contact the health cna caregiver that requested your imaging first. Head wo Contrast (Generic) (Exam End: 09/17/2024 4:51 AM) Result Value WORKSTATION ID [id number] Impression Increased size and density of dominant [...] who have questions please contact the health cna caregiver that requested your imaging first. Chest One View (Exam End: 09/17/2024 2:13 PM) Result Value WORKSTATION ID [id number] Impression 1. No focal opacity in lung [...] who have questions please contact the health cna caregiver that requested your imaging first. Chest One View (Exam End: 09/18/2024 8:43 AM) Result Value WORKSTATION ID [id number] Impression Tubes and lines as described. Blunting of the left costophrenic angle suggests tiny layering left effusion with associated left basilar consolidation/atelectasis Thank you for letting us participate in the care of this patient. If you are a health care provider and have any questions regarding this report, please contact the number below. For patients who have questions please contact the health cna caregiver that requested your imaging first. Abdomen 1 view (Generic) (Exam End: 09/18/2024 12:31 PM) Result Value WORKSTATION ID [id number] Impression Dobbhoff tube tip along the greater curve of the stomach. Thank you for letting us participate in the care of this patient. If you are a health care provider and have any questions regarding this report, please contact the number below. For patients who have questions please contact the health cna caregiver that requested your imaging first. Brain wwo Contrast (Generic) (Exam End: 09/19/2024 5:43 PM) Result Value WORKSTATION ID [id number] Impression Unchanged size of large right cerebral hemisphere ICH status post partial evacuation. Numerous small foci of decreased acute infarction both along and separate from the site of hemorrhage. These foci are present in both cerebral hemispheres and have a pattern most consistent with embolic infarction. No evidence of LEADERSHIP COACH malignancy Thank you for letting us participate in the care of this patient. If you are a health care provider and have any questions regarding this report, please contact the number below. For patients who have questions please contact the health cna caregiver that requested your imaging first. Head wo Contrast (Generic) (Exam End: 09/21/2024 3:50 AM) Result Value WORKSTATION ID [id number] Impression Stable hemorrhage right temporal, parietal, right [...] who have questions please contact the health cna caregiver that requested your imaging first. Abdomen 1 view (Generic) (Exam End: 09/21/2024 2:01 PM) Result Value WORKSTATION ID [id number] Impression Dobbhoff tube and enteric tube sidehole [...] who have questions please contact the health cna caregiver that requested your imaging first. Chest One View (Exam End: 09/21/2024 2:01 PM) Result Value WORKSTATION ID [id number] Impression ET tube with tip projecting approximately [...] who have questions please contact the health cna caregiver that requested your imaging first. Head wo Contrast (Generic) (Exam End: 09/22/2024 4:02 AM) Result Value WORKSTATION ID [id number] Impression Stable head CT status post removal of subcutaneous drain. No new or enlarging hemorrhage. Stable pattern of mass effect Thank you for letting us participate in the care of this patient. If you are a health care provider and have any questions regarding this report, please contact the number below. For patients who have questions please contact the health cna caregiver that requested your imaging first. Assessment: 74 y.o. female with PMHx notable for Afib (taking ASA, previously on apixaban-stopped taking after IPH in April 2024), CHRISTOPHER, HLD, BMI of 36, prior IPH 04/2024 who presented to hospital 09/16/24 for placement of Watchman with cardiology. She developed headaches and nausea post op and CT scan noted large R dllbikki-aqfylbu-cipkhrgqc IPH. Now s/p R craniotomy for IPH [...] care per primary For questions please call [facility] pager [phone] Brianne Kinney MD Clinical Documentation Improvement: Active Hospital Problems Diagnosis Presence of Watchman left atrial appendage closure device Resolved Hospital Problems No resolved problems to display. Associated attestation - Sushila Espinal MD - 09/25/2024 4:09 PM EDT I was the attending physician supervising the resident in the above care. I agree with the history,physical exam, assessment, and plan. Sushila Espinal MD PhD Personal Assistant Section of Neurosurgery Department of Surgery [facility] [email or web address] * Mariola Calixto MD - 09/25/2024 10:09 AM EDT ICU PROGRESS NOTE DOA: 09/16/2024 Room: [address] [place] [address] Length of Stay: 9 ICU Length of Stay 8d 12h Lucero Bruno ( ) is a 74 y.o. 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 who [place] [facility] [place] watchman procedure subsequently [...] per 24 hour Intake 2159.69 ml Output 2009 ml Net 149.69 ml Labs: Last 3 wbc, hgb, hct plt Recent Labs 09/25/2442809/24/24 0500 09/23/24 0101 WBC 27.24* 19.25* 19.97* HGB 10.5* 9.7* 10.0* HCT 31.9* 30.6* 30.1* PLATELET 379* 342 293 Last 3 Lytes Recent Labs 09/25/2442809/24/24 0500 09/23/24 1623 09/23/24 [...] <0.1 Last Ca, Mg, Phos Recent Labs 09/25/249 CALCIUM 8.4* PHOS 3.4 MAGNESIUM 0.91 Last [...] 1251 (Active) Airway Size Verification 7.5 mm 09/25/24404 Site Changed to: left side of mouth 09/25/24404 Appearance clean 09/25/24404 Tube Securement endotracheal (ET) tube nava 09/25/24404 Tube Reference Point teeth 09/25/24404 Airway Tube Secured At (cm) 22 09/25/24404 * Ihsan Winston RCP - 09/24/2024 6:10 [...] y.o. Code Status: FULL. HPI: Pres[place] [facility] [place] and developed [...] EDT ICU PROGRESS NOTE DOA: 09/16/2024 Room: [address] [place], [place] [address] Length of Stay: 8 ICU Length of Stay 7d 11h Lucero Bruno ( ) is a 74 y.o. 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 who presented [place] [facility] [place] watchman procedure subsequently [...] 3 LFTs Recent Labs 09/23/24 0756 05/08/24 01205/07/24 0157 AST 18 15 13 ALT 56* [...] steroids (started 09/21, 2:30 pm) dexamethasone 8Q8 GI - Dysphagias [...] Guzman MD - 09/24/2024 6:58 AM EDT [facility] NEUROSURGERY PROGRESS NOTE ID: Lucero Bruno 74 [...] Intake/Output Summary (Last 24 hours) at 09/24/2024 07 Last data filed at 09/24/2024 0623 Gross [...] 09/16/2024 5:26 PM) Result Value WORKSTATION ID [id number] Impression Interval expansion of now large right-sided [...] who have questions please contact the health cna caregiver that requested your imaging first. Head wo Contrast (Generic) (Exam End: 09/16/2024 11:21 PM) Result Value WORKSTATION ID [id number] Impression CT head: 1. Interval craniotomy with [...] who have questions please contact the health cna caregiver that requested your imaging first. Venogram Brain (Exam End: 09/16/2024 11:21 PM) Result Value WORKSTATION ID [id number] Impression CT head: 1. Interval craniotomy with [...] who have questions please contact the health cna caregiver that requested your imaging first. Chest One View (Exam End: 09/16/2024 11:00 PM) Result Value WORKSTATION ID [id number] Impression Satisfactorily positioned enteric and endotracheal tubes. Left lower lobe atelectasis versus pneumonia. Thank you for letting us participate in the care of this patient. If you are a health care provider and have any questions regarding this report, please contact the number below. For patients who have questions please contact the health cna caregiver that requested your imaging first. Abdomen 1 view (Generic) (Exam End: 09/16/2024 11:00 PM) Result Value WORKSTATION ID [id number] Impression Satisfactorily positioned enteric and endotracheal tubes. Left lower lobe atelectasis versus pneumonia. Thank you for letting us participate in the care of this patient. If you are a health care provider and have any questions regarding this report, please contact the number below. For patients who have questions please contact the health cna caregiver that requested your imaging first. Head wo Contrast (Generic) (Exam End: 09/17/2024 4:51 AM) Result Value WORKSTATION ID [id number] Impression Increased size and density of dominant [...] who have questions please contact the health cna caregiver that requested your imaging first. Chest One View (Exam End: 09/17/2024 2:13 PM) Result Value WORKSTATION ID [id number] Impression 1. No focal opacity in lung [...] who have questions please contact the health cna caregiver that requested your imaging first. Chest One View (Exam End: 09/18/2024 8:43 AM) Result Value WORKSTATION ID [id number] Impression Tubes and lines as described. Blunting of the left costophrenic angle suggests tiny layering left effusion with associated left basilar consolidation/atelectasis Thank you for letting us participate in the care of this patient. If you are a health care provider and have any questions regarding this report, please contact the number below. For patients who have questions please contact the health cna caregiver that requested your imaging first. Abdomen 1 view (Generic) (Exam End: 09/18/2024 12:31 PM) Result Value WORKSTATION ID [id number] Impression Dobbhoff tube tip along the greater curve of the stomach. Thank you for letting us participate in the care of this patient. If you are a health care provider and have any questions regarding this report, please contact the number below. For patients who have questions please contact the health cna caregiver that requested your imaging first. Brain wwo Contrast (Generic) (Exam End: 09/19/2024 5:43 PM) Result Value WORKSTATION ID [id number] Impression Unchanged size of large right cerebral hemisphere ICH status post partial evacuation. Numerous small foci of decreased acute infarction both along and separate from the site of hemorrhage. These foci are present in both cerebral hemispheres and have a pattern most consistent with embolic infarction. No evidence of LEADERSHIP COACH malignancy Thank you for letting us participate in the care of this patient. If you are a health care provider and have any questions regarding this report, please contact the number below. For patients who have questions please contact the health cna caregiver that requested your imaging first. Head wo Contrast (Generic) (Exam End: 09/21/2024 3:50 AM) Result Value WORKSTATION ID [id number] Impression Stable hemorrhage right temporal, parietal, right [...] who have questions please contact the health cna caregiver that requested your imaging first. Abdomen 1 view (Generic) (Exam End: 09/21/2024 2:01 PM) Result Value WORKSTATION ID [id number] Impression Dobbhoff tube and enteric tube sidehole [...] who have questions please contact the health cna caregiver that requested your imaging first. Chest One View (Exam End: 09/21/2024 2:01 PM) Result Value WORKSTATION ID [id number] Impression ET tube with tip projecting approximately [...] who have questions please contact the health cna caregiver that requested your imaging first. Head wo Contrast (Generic) (Exam End: 09/22/2024 4:02 AM) Result Value WORKSTATION ID [id number] Impression Stable head CT status post removal of subcutaneous drain. No new or enlarging hemorrhage. Stable pattern of mass effect Thank you for letting us participate in the care of this patient. If you are a health care provider and have any questions regarding this report, please contact the number below. For patients who have questions please contact the health cna caregiver that requested your imaging first. Assessment: 74 y.o. female with PMHx notable for Afib (taking ASA, previously on apixaban-stopped taking after IPH in April 2024), CHRISTOPHER, HLD, BMI of 36, prior IPH 04/2024 who presented to hospital 09/16/24 for placement of Watchman with cardiology. She developed headaches and nausea post op and CT scan noted large R hzwayyjl-bcsragi-aictjuyah IPH. Now s/p 09/16/24, Dr. Espinal: R [...] care per primary For questions please call [facility] pager [phone] Rob Guzman MD Clinical Documentation Improvement: Active Hospital Problems Diagnosis Presence of Watchman left atrial appendage closure device Resolved Hospital Problems No resolved problems to display. * Gayle Daniel RCP - 09/24/2024 5:32 AM EDT AMV Protocol: [...] y.o. Code Status: FULL. HPI: Presents to [facility] [place] and developed a large R ICH post-op that required intubation for airway protection and emergent R craniotomy for evacuation PMHx: prior R occipital ICH, a-fib Events w/ date: 09/21 - Appreciated cuff leak, tongue does not seem as edematous as last two days. Extubated patient to OR, patient with moderate amount of secretions attempted [...] at discharge. I have met with the district representative (son Don Pollard) to: discuss discharge planning needs. provide the [facility], Office of Care Management letter from the [employer]ruitment [employer] pertaining to rehab referrals. provide a letter describing our affiliations within the [facility] and educate about their right to choose where referrals are sent. provide the CMS Star Quality Rating handout. review the different levels of rehab including SNF, swing, and acute. provide a list of facilities within their preferred geographic area. request that they provide at least three choices for referral. They have requested referrals to: [facility] and [facility] [address] [place] [address] Note routed to a Supervisor Dials who will communicate referrals to facilities and provide any required information. Anupama Pastrana, MSN, RN, ACM-RN [facility] golf course patroller * Dayana Cotter, ZUHAIR - 09/23/2024 10:25 AM EDT Speech-Language Pathology Consult Note Lucero Bruno is a 74 y.o. 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 Remains in Neuro ICU on vent. [employer] team will continue to monitor. Dayana Cotter MA [facility]ER Inpatient Rehabilitation Medicine pager:# [phone] * Mariola Calixto MD - 09/23/2024 9:27 AM EDT ICU PROGRESS NOTE DOA: 09/16/2024 Room: [address] [place] [address] Length of Stay: 7 ICU Length of Stay 6d 11h Lucero Bruno ( ) is a 74 y.o. 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 Current Nutrition Regimen: Active Orders [...] encounter: 89.2 kg (196 lb 10.4 oz). Alden Body Weight (IBW) (kg): 45.45 Wt Readings [...] Malnutrition Diagnosis: Not enough data to assess (Maribel, JPKIANA J Parenteral Enteral Nutr. 2011; 36(3): 273-83) Nutrition to continue to follow up while inpatient Thank you, Sherine Santana, MS, RD, LD, [facility] Clinical Nutrition * Rob Guzman MD - 09/23/2024 7:22 AM EDT [facility] NEUROSURGERY PROGRESS NOTE ID: Lucero Bruno 74 [...] Infusions: tube feeding diet dexmedeTOMIDine 0.4 mcg/kg/hr (09/24/24622) PRN: potassium chloride ER, 40 mEq, Q4H [...] 09/16/2024 5:26 PM) Result Value WORKSTATION ID [id number] Impression Interval expansion of now large right-sided [...] who have questions please contact the health cna caregiver that requested your imaging first. Head wo Contrast (Generic) (Exam End: 09/16/2024 11:21 PM) Result Value WORKSTATION ID [id number] Impression CT head: 1. Interval craniotomy with [...] who have questions please contact the health cna caregiver that requested your imaging first. Venogram Brain (Exam End: 09/16/2024 11:21 PM) Result Value WORKSTATION ID [id number] Impression CT head: 1. Interval craniotomy with [...] who have questions please contact the health cna caregiver that requested your imaging first. Chest One View (Exam End: 09/16/2024 11:00 PM) Result Value WORKSTATION ID [id number] Impression Satisfactorily positioned enteric and endotracheal tubes. Left lower lobe atelectasis versus pneumonia. Thank you for letting us participate in the care of this patient. If you are a health care provider and have any questions regarding this report, please contact the number below. For patients who have questions please contact the health cna caregiver that requested your imaging first. Abdomen 1 view (Generic) (Exam End: 09/16/2024 11:00 PM) Result Value WORKSTATION ID [id number] Impression Satisfactorily positioned enteric and endotracheal tubes. Left lower lobe atelectasis versus pneumonia. Thank you for letting us participate in the care of this patient. If you are a health care provider and have any questions regarding this report, please contact the number below. For patients who have questions please contact the health cna caregiver that requested your imaging first. Head wo Contrast (Generic) (Exam End: 09/17/2024 4:51 AM) Result Value WORKSTATION ID [id number] Impression Increased size and density of dominant [...] who have questions please contact the health cna caregiver that requested your imaging first. Chest One View (Exam End: 09/17/2024 2:13 PM) Result Value WORKSTATION ID [id number] Impression 1. No focal opacity in lung [...] who have questions please contact the health cna caregiver that requested your imaging first. Chest One View (Exam End: 09/18/2024 8:43 AM) Result Value WORKSTATION ID [id number] Impression Tubes and lines as described. Blunting of the left costophrenic angle suggests tiny layering left effusion with associated left basilar consolidation/atelectasis Thank you for letting us participate in the care of this patient. If you are a health care provider and have any questions regarding this report, please contact the number below. For patients who have questions please contact the health cna caregiver that requested your imaging first. Abdomen 1 view (Generic) (Exam End: 09/18/2024 12:31 PM) Result Value WORKSTATION ID [id number] Impression Dobbhoff tube tip along the greater curve of the stomach. Thank you for letting us participate in the care of this patient. If you are a health care provider and have any questions regarding this report, please contact the number below. For patients who have questions please contact the health cna caregiver that requested your imaging first. Brain wwo Contrast (Generic) (Exam End: 09/19/2024 5:43 PM) Result Value WORKSTATION ID [id number] Impression Unchanged size of large right cerebral hemisphere ICH status post partial evacuation. Numerous small foci of decreased acute infarction both along and separate from the site of hemorrhage. These foci are present in both cerebral hemispheres and have a pattern most consistent with embolic infarction. No evidence of LEADERSHIP COACH malignancy Thank you for letting us participate in the care of this patient. If you are a health care provider and have any questions regarding this report, please contact the number below. For patients who have questions please contact the health cna caregiver that requested your imaging first. Head wo Contrast (Generic) (Exam End: 09/21/2024 3:50 AM) Result Value WORKSTATION ID [id number] Impression Stable hemorrhage right temporal, parietal, right [...] who have questions please contact the health cna caregiver that requested your imaging first. Abdomen 1 view (Generic) (Exam End: 09/21/2024 2:01 PM) Result Value WORKSTATION ID [id number] Impression Dobbhoff tube and enteric tube sidehole [...] who have questions please contact the health cna caregiver that requested your imaging first. Chest One View (Exam End: 09/21/2024 2:01 PM) Result Value WORKSTATION ID [id number] Impression ET tube with tip projecting approximately [...] who have questions please contact the health cna caregiver that requested your imaging first. Head wo Contrast (Generic) (Exam End: 09/22/2024 4:02 AM) Result Value WORKSTATION ID [id number] Impression Stable head CT status post removal of subcutaneous drain. No new or enlarging hemorrhage. Stable pattern of mass effect Thank you for letting us participate in the care of this patient. If you are a health care provider and have any questions regarding this report, please contact the number below. For patients who have questions please contact the health cna caregiver that requested your imaging first. Assessment: 74 y.o. female with PMHx notable for Afib (taking ASA, previously on apixaban-stopped taking after IPH in April 2024), CHRISTOPHER, HLD, BMI of 36, prior IPH 04/2024 who presented to hospital 09/16/24 for placement of Watchman with cardiology. She developed headaches and nausea post op and CT scan noted large R rtsuhtak-hbfchzm-ogttunkat IPH. Now s/p 09/16/24, Dr. Espinal: R [...] primary For questions please call [facility] pager [phone] Rob Guzman MD Clinical Documentation Improvement: Active [...] y.o. Code Status: FULL. HPI: Presents to [facility] [place] and developed [...] be 2/2 to CAA who presented to [facility] [place] watchman procedure subsequently developing [...] 0.63) performed by Sushila Espinal MD at [facility] MAIN OR PRO LAPAROSCOPY W TOT HYSTERECTUTERUS <=250 GRAM W TUBE/OVARY N/A 04/23/2024 LAPAROSCOPY, TOTAL HYST, UTERUS<250GMS, REM TUBE &/OR OVARY (WRVU 15) performed by Xiomara Burkett MD at [facility] MAIN OR PRO OPEN SKULL EVAC INTRACEREBR BLOOD Right 09/16/2024 @CRANI-HEMATOMA EVACUATION, INTRACEREBRAL (WRVU 28.09) performed by Sushila Espinal MD at [facility] MAIN OR Social History: per previous hospitalization [...] in all aspects. 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 Assessment: Luecro Bruno was seen today for physical therapy evaluation. Pt presented to [facility] [place] watchman procedure subsequently developing [...] motion, stair training, strengthening, transfer training, and eelchair managment/propulsion training. Patient/family understand and agree [...] outlined inthis evaluation. Time IN / OUT: 8502-6609 Total Minutes, Physical Therapy: 18 Billing Code: mod complexity yolaal Kymberly Baptiste, PT, DPT, NCS Pager: [phone] Physical Therapy Inpatient Rehabilitation Department * Mariola Calixto MD - 09/22/2024 11:08 AM EDT ICU PROGRESS NOTE DOA: 09/16/2024 Room: [facility] Length of Stay: 6 ICU Length of Stay 5d 13h Lucero Bruno ( ) is a 74 y.o. 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 female : 1950 LOS: 6 Neurosurgical Procedures this Admission: 09/16/24, Dr. Espinal: R craniotomy for IPH evacuation INTERVAL Hx: -Extubated [...] I/O: Intake/Output Summary (Last 24 hours) at 09/22/2024 0929 Last data filed at 09/22/2024 0800 Gross [...] incision CDI - stacey LABS: Recent Labs 09/22/2412509/21/241 09/20/24 0009 WBC 16.65* 14.84* 13.82* HGB 9.9* 8.9* 8.9* PLATELET 274 217 191 Recent Labs 09/22/2412509/21/241 09/20/24 0009 NA 139 141 139 K [...] 09/16/2024 5:26 PM) Result Value WORKSTATION ID [id number] Impression Interval expansion of now large right-sided [...] who have questions please contact the health cna caregiver that requested your imaging first. Head wo Contrast (Generic) (Exam End: 09/16/2024 11:21 PM) Result Value WORKSTATION ID [id number] Impression CT head: 1. Interval craniotomy with [...] who have questions please contact the health cna caregiver that requested your imaging first. Venogram Brain (Exam End: 09/16/2024 11:21 PM) Result Value WORKSTATION ID [id number] Impression CT head: 1. Interval craniotomy with [...] who have questions please contact the health cna caregiver that requested your imaging first. Chest One View (Exam End: 09/16/2024 11:00 PM) Result Value WORKSTATION ID [id number] Impression Satisfactorily positioned enteric and endotracheal tubes. Left lower lobe atelectasis versus pneumonia. Thank you for letting us participate in the care of this patient. If you are a health care provider and have any questions regarding this report, please contact the number below. For patients who have questions please contact the health cna caregiver that requested your imaging first. Abdomen 1 view (Generic) (Exam End: 09/16/2024 11:00 PM) Result Value WORKSTATION ID [id number] Impression Satisfactorily positioned enteric and endotracheal tubes. Left lower lobe atelectasis versus pneumonia. Thank you for letting us participate in the care of this patient. If you are a health care provider and have any questions regarding this report, please contact the number below. For patients who have questions please contact the health cna caregiver that requested your imaging first. Head wo Contrast (Generic) (Exam End: 09/17/2024 4:51 AM) Result Value WORKSTATION ID [id number] Impression Increased size and density of dominant [...] who have questions please contact the health cna caregiver that requested your imaging first. Chest One View (Exam End: 09/17/2024 2:13 PM) Result Value WORKSTATION ID [id number] Impression 1. No focal opacity in lung [...] who have questions please contact the health cna caregiver that requested your imaging first. Chest One View (Exam End: 09/18/2024 8:43 AM) Result Value WORKSTATION ID [id number] Impression Tubes and lines as described. Blunting of the left costophrenic angle suggests tiny layering left effusion with associated left basilar consolidation/atelectasis Thank you for letting us participate in the care of this patient. If you are a health care provider and have any questions regarding this report, please contact the number below. For patients who have questions please contact the health cna caregiver that requested your imaging first. Abdomen 1 view (Generic) (Exam End: 09/18/2024 12:31 PM) Result Value WORKSTATION ID [id number] Impression Dobbhoff tube tip along the greater curve of the stomach. Thank you for letting us participate in the care of this patient. If you are a health care provider and have any questions regarding this report, please contact the number below. For patients who have questions please contact the health cna caregiver that requested your imaging first. Brain wwo Contrast (Generic) (Exam End: 09/19/2024 5:43 PM) Result Value WORKSTATION ID [id number] Impression Unchanged size of large right cerebral hemisphere ICH status post partial evacuation. Numerous small foci of decreased acute infarction both along and separate from the site of hemorrhage. These foci are present in both cerebral hemispheres and have a pattern most consistent with embolic infarction. No evidence of LEADERSHIP COACH malignancy Thank you for letting us participate in the care of this patient. If you are a health care provider and have any questions regarding this report, please contact the number below. For patients who have questions please contact the health cna caregiver that requested your imaging first. Head wo Contrast (Generic) (Exam End: 09/21/2024 3:50 AM) Result Value WORKSTATION ID [id number] Impression Stable hemorrhage right temporal, parietal, right [...] who have questions please contact the health cna caregiver that requested your imaging first. Abdomen 1 view (Generic) (Exam End: 09/21/2024 2:01 PM) Result Value WORKSTATION ID [id number] Impression Dobbhoff tube and enteric tube sidehole [...] who have questions please contact the health cna caregiver that requested your imaging first. Chest One View (Exam End: 09/21/2024 2:01 PM) Result Value WORKSTATION ID [id number] Impression ET tube with tip projecting approximately [...] who have questions please contact the health cna caregiver that requested your imaging first. Head wo Contrast (Generic) (Exam End: 09/22/2024 4:02 AM) Result Value WORKSTATION ID [id number] Impression Stable head CT status post removal of subcutaneous drain. No new or enlarging hemorrhage. Stable pattern of mass effect Thank you for letting us participate in the care of this patient. If you are a health care provider and have any questions regarding this report, please contact the number below. For patients who have questions please contact the health cna caregiver that requested your imaging first. Assessment: 74 y.o. female with PMHx notable for Afib (taking ASA, previously on apixaban-stopped taking after IPH in April 2024), CHRISTOPHER, HLD, BMI of 36, prior IPH 04/2024 who presented to hospital 09/16/24 for placement of Watchman with cardiology. She developed headaches and nausea post op and CT scan noted large R vttezsmj-fqkcfeq-okevpczho IPH. Now s/p 09/16/24, Dr. Espinal: R [...] primary For questions please call NSGY pager [phone] Dodie Deleon MD Clinical Documentation Improvement: Active [...] given, BP improved slightly, levo added as ND, NSR. Generalized edema. OG d/c, DHT in with TF running at 55 ml/hr, hill in place with clear yellow urine. LBM [...] as Appropriate) * Gayle Daniel, [facility] - 09/22/2024 5:13 AM EDT AMV Protocol: [...] Pinon MD - 09/21/2024 6:30 PM EDT [facility] Neurosurgery Patient seen and examined on rounds. She remains intubated but was wide-awake and alert, tracking and attending. She followed commands briskly in the right upper and lower extremity. She did not follow on the left. Her incision was clean, dry, and intact. Continue with neurosurgical care as previously outlined. Neurosurgery Pager: [phone] Erick Pinon MD 09/21/2024 6:57 PM * Enedina Titus SLP - 09/21/2024 4:22 PM EDT Speech Language Pathology Contact Note - No Charge Visit Order received for post-extubation clinical swallow evaluation. Chart reviewed. Pt was emergently re-intubated for respiratory distress after failed extubation today. [facility] team will continue to monitor. Please page with any questions or concerns. Enedina Munoz M.A., [facility] Speech-Language Pathology Inpatient Rehabilitation Department Pager # [phone] * Rob Guzman MD - 09/21/2024 3:24 PM EDT [facility] NEUROSURGERY PROGRESS NOTE ID: Lucero Bruno 74 [...] 09/16/2024 5:26 PM) Result Value WORKSTATION ID [id number] Impression Interval expansion of now large right-sided [...] who have questions please contact the health cna caregiver that requested your imaging first. Head wo Contrast (Generic) (Exam End: 09/16/2024 11:21 PM) Result Value WORKSTATION ID [id number] Impression CT head: 1. Interval craniotomy with [...] who have questions please contact the health cna caregiver that requested your imaging first. Venogram Brain (Exam End: 09/16/2024 11:21 PM) Result Value WORKSTATION ID [id number] Impression CT head: 1. Interval craniotomy with [...] who have questions please contact the health cna caregiver that requested your imaging first. Chest One View (Exam End: 09/16/2024 11:00 PM) Result Value WORKSTATION ID [id number] Impression Satisfactorily positioned enteric and endotracheal tubes. Left lower lobe atelectasis versus pneumonia. Thank you for letting us participate in the care of this patient. If you are a health care provider and have any questions regarding this report, please contact the number below. For patients who have questions please contact the health cna caregiver that requested your imaging first. Abdomen 1 view (Generic) (Exam End: 09/16/2024 11:00 PM) Result Value WORKSTATION ID [id number] Impression Satisfactorily positioned enteric and endotracheal tubes. Left lower lobe atelectasis versus pneumonia. Thank you for letting us participate in the care of this patient. If you are a health care provider and have any questions regarding this report, please contact the number below. For patients who have questions please contact the health cna caregiver that requested your imaging first. Head wo Contrast (Generic) (Exam End: 09/17/2024 4:51 AM) Result Value WORKSTATION ID [id number] Impression Increased size and density of dominant [...] who have questions please contact the health cna caregiver that requested your imaging first. Chest One View (Exam End: 09/17/2024 2:13 PM) Result Value WORKSTATION ID [id number] Impression 1. No focal opacity in lung [...] who have questions please contact the health cna caregiver that requested your imaging first. Chest One View (Exam End: 09/18/2024 8:43 AM) Result Value WORKSTATION ID [id number] Impression Tubes and lines as described. Blunting of the left costophrenic angle suggests tiny layering left effusion with associated left basilar consolidation/atelectasis Thank you for letting us participate in the care of this patient. If you are a health care provider and have any questions regarding this report, please contact the number below. For patients who have questions please contact the health cna caregiver that requested your imaging first. Abdomen 1 view (Generic) (Exam End: 09/18/2024 12:31 PM) Result Value WORKSTATION ID [id number] Impression Dobbhoff tube tip along the greater curve of the stomach. Thank you for letting us participate in the care of this patient. If you are a health care provider and have any questions regarding this report, please contact the number below. For patients who have questions please contact the health cna caregiver that requested your imaging first. Brain wwo Contrast (Generic) (Exam End: 09/19/2024 5:43 PM) Result Value WORKSTATION ID [id number] Impression Unchanged size of large right cerebral hemisphere ICH status post partial evacuation. Numerous small foci of decreased acute infarction both along and separate from the site of hemorrhage. These foci are present in both cerebral hemispheres and have a pattern most consistent with embolic infarction. No evidence of LEADERSHIP COACH malignancy Thank you for letting us participate in the care of this patient. If you are a health care provider and have any questions regarding this report, please contact the number below. For patients who have questions please contact the health cna caregiver that requested your imaging first. Head wo Contrast (Generic) (Exam End: 09/21/2024 3:50 AM) Result Value WORKSTATION ID [id number] Impression Stable hemorrhage right temporal, parietal, right [...] who have questions please contact the health cna caregiver that requested your imaging first. Assessment: 74 y.o. female with PMHx notable for Afib (taking ASA, previously on apixaban-stopped taking after IPH in April 2024), CHRISTOPHER, HLD, BMI of 36, prior IPH 04/2024 who presented to hospital 09/16/24 for placement of Watchman with cardiology. She developed headaches and nausea post op and CT scan noted large R gtkgjmrf-hmjszvj-mupkojrrr IPH. Repeated CTH wo contrast overnight showing [...] antiplatelets/anticoagulants -Na goal 140-150 -Remove AUBREY today -Rpt CT 399Sep 22 -Wean sedation and wean to extubate as able -Rest of care per primary For questions please call NSGY pager [phone] Rob Guzman MD Clinical Documentation Improvement: Active [...] - optimize regimen with goal of 1 [id number] while on TF Monitor BG - goal of 140-180 Daily weights I was able to discuss plan with provider Neurocritical Care Pager #[phone] . Current Nutrition Regimen: Active Orders Diet [...] (antecubital fossa), right 09/16/24 1305-- 5 PIV 09/16/242215 20 gauge median cubital vein [...] encounter: 91.3 kg (201 lb 4.5 oz). Alden Body Weight (IBW) (kg): 45.45 Wt Readings [...] enough data to assess (Mari et al, TRACE J Parenteral Enteral Nutr. 2011; 36(3): 273-83) Nutrition to continue to follow up while inpatient Thank you, Sherine Henriquez. Max, MS, RD, LD, [facility] Clinical Nutrition * Mariola Calixto MD - 09/21/2024 9:35 AM EDT ICU PROGRESS NOTE DOA: 09/16/2024 Room: [address] [place] [address]-A Length of Stay: 5 ICU Length of Stay 4d 11h Lucero Bruno ( ) is a 74 y.o. 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 who [place] [facility] [place] watchman procedure subsequently [...] Intake/Output Summary (Last 24 hours) at 09/21/2024 0935 Last data filed at 09/21/2024 0813 Gross [...] Gas) No results found for: PHART, PO2ART, UMA2OUM Initial Assessment: Received patient intubated on vent [...] EDT ICU PROGRESS NOTE DOA: 09/16/2024 Room: [address] [place] [address] Length of Stay: 4 ICU Length of Stay 3d 11h Lucero Bruno ( ) is a 74 y.o. 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 Over night events: None. Medications: Scheduled Meds: dilTIAZem 90 mg Per NG tube Q6H CALRY dexAMETHasone inj 8 mg Intravenous Q8H CARLY [...] Last Ca, Mg, Phos Recent Labs 09/20/24 0009 CALCIUM 8.4* PHOS 2.9 MAGNESIUM 0.88 Last [...] Guzman MD - 09/20/2024 8:17 AM EDT [facility] NEUROSURGERY PROGRESS NOTE ID: Lucero Bruno 74 [...] 09/16/2024 5:26 PM) Result Value WORKSTATION ID [id number] Impression Interval expansion of now large right-sided [...] who have questions please contact the health cna caregiver that requested your imaging first. Head wo Contrast (Generic) (Exam End: 09/16/2024 11:21 PM) Result Value WORKSTATION ID [id number] Impression CT head: 1. Interval craniotomy with [...] who have questions please contact the health cna caregiver that requested your imaging first. Venogram Brain (Exam End: 09/16/2024 11:21 PM) Result Value WORKSTATION ID [id number] Impression CT head: 1. Interval craniotomy with [...] who have questions please contact the health cna caregiver that requested your imaging first. Chest One View (Exam End: 09/16/2024 11:00 PM) Result Value WORKSTATION ID [id number] Impression Satisfactorily positioned enteric and endotracheal tubes. Left lower lobe atelectasis versus pneumonia. Thank you for letting us participate in the care of this patient. If you are a health care provider and have any questions regarding this report, please contact the number below. For patients who have questions please contact the health cna caregiver that requested your imaging first. Abdomen 1 view (Generic) (Exam End: 09/16/2024 11:00 PM) Result Value WORKSTATION ID [id number] Impression Satisfactorily positioned enteric and endotracheal tubes. Left lower lobe atelectasis versus pneumonia. Thank you for letting us participate in the care of this patient. If you are a health care provider and have any questions regarding this report, please contact the number below. For patients who have questions please contact the health cna caregiver that requested your imaging first. Head wo Contrast (Generic) (Exam End: 09/17/2024 4:51 AM) Result Value WORKSTATION ID [id number] Impression Increased size and density of dominant [...] who have questions please contact the health cna caregiver that requested your imaging first. Chest One View (Exam End: 09/17/2024 2:13 PM) Result Value WORKSTATION ID [id number] Impression 1. No focal opacity in lung [...] who have questions please contact the health cna caregiver that requested your imaging first. Chest One View (Exam End: 09/18/2024 8:43 AM) Result Value WORKSTATION ID [id number] Impression Tubes and lines as described. Blunting of the left costophrenic angle suggests tiny layering left effusion with associated left basilar consolidation/atelectasis Thank you for letting us participate in the care of this patient. If you are a health care provider and have any questions regarding this report, please contact the number below. For patients who have questions please contact the health cna caregiver that requested your imaging first. Abdomen 1 view (Generic) (Exam End: 09/18/2024 12:31 PM) Result Value WORKSTATION ID [id number] Impression Dobbhoff tube tip along the greater curve of the stomach. Thank you for letting us participate in the care of this patient. If you are a health care provider and have any questions regarding this report, please contact the number below. For patients who have questions please contact the health cna caregiver that requested your imaging first. Brain wwo Contrast (Generic) (Exam End: 09/19/2024 5:43 PM) Result Value WORKSTATION ID [id number] Impression Unchanged size of large right cerebral hemisphere ICH status post partial evacuation. Numerous small foci of decreased acute infarction both along and separate from the site of hemorrhage. These foci are present in both cerebral hemispheres and have a pattern most consistent with embolic infarction. No evidence of LEADERSHIP COACH malignancy Thank you for letting us participate in the care of this patient. If you are a health care provider and have any questions regarding this report, please contact the number below. For patients who have questions please contact the health cna caregiver that requested your imaging first. Assessment: 74 y.o. female with PMHx notable for Afib (taking ASA, previously on apixaban-stopped taking after IPH in April 2024), CHRISTOPHER, HLD, BMI of 36, prior IPH 04/2024 who presented to hospital 09/16/24 for placement of Watchman with cardiology. She developed headaches and nausea post op and CT scan noted large R asuqzuvl-vldmnqk-xsgxwqzbt IPH. Repeated CTH wo contrast overnight showing [...] care per primary For questions please call [facility] pager [phone] Rob Guzman MD Clinical Documentation Improvement: Active [...] head tomorrow AM Sushila Espinal MD PhD Personal Assistant Section of Neurosurgery Department of Surgery [facility] [email or web address] * Bartolome XiaoCLAYTON - 09/20/2024 3:35 AM EDT RT Mechanical [...] Gas) No results found for: PHART, PO2ART, [id number] Initial Assessment: Received patient intubated on vent [...] EDT ICU PROGRESS NOTE DOA: 09/16/2024 Room: [address] [place] [address] Length of Stay: 3 ICU Length of Stay 2d 11h Lucero Bruno ( ) is a 74 y.o. 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 who presented [place] [facility] [place] watchman procedure subsequently [...] > 100k - SCDs, chemoppx contraindicated - [facility] for fever work-up Endo - - goal [...] Suarez MD - 09/19/2024 9:54 AM EDT [facility] NEUROSURGERY PROGRESS NOTE ID: Lucero Bruno 74 [...] Intake/Output Summary (Last 24 hours) at 09/19/2024 09 Last data filed at 09/19/2024 0953 Gross [...] 09/16/2024 5:26 PM) Result Value WORKSTATION ID [id number] Impression Interval expansion of now large right-sided [...] who have questions please contact the health cna caregiver that requested your imaging first. Head wo Contrast (Generic) (Exam End: 09/16/2024 11:21 PM) Result Value WORKSTATION ID [id number] Impression CT head: 1. Interval craniotomy with [...] who have questions please contact the health cna caregiver that requested your imaging first. Venogram Brain (Exam End: 09/16/2024 11:21 PM) Result Value WORKSTATION ID [id number] Impression CT head: 1. Interval craniotomy with [...] who have questions please contact the health cna caregiver that requested your imaging first. Chest One View (Exam End: 09/16/2024 11:00 PM) Result Value WORKSTATION ID [id number] Impression Satisfactorily positioned enteric and endotracheal tubes. Left lower lobe atelectasis versus pneumonia. Thank you for letting us participate in the care of this patient. If you are a health care provider and have any questions regarding this report, please contact the number below. For patients who have questions please contact the health cna caregiver that requested your imaging first. Abdomen 1 view (Generic) (Exam End: 09/16/2024 11:00 PM) Result Value WORKSTATION ID [id number] Impression Satisfactorily positioned enteric and endotracheal tubes. Left lower lobe atelectasis versus pneumonia. Thank you for letting us participate in the care of this patient. If you are a health care provider and have any questions regarding this report, please contact the number below. For patients who have questions please contact the health cna caregiver that requested your imaging first. Head wo Contrast (Generic) (Exam End: 09/17/2024 4:51 AM) Result Value WORKSTATION ID [id number] Impression Increased size and density of dominant [...] who have questions please contact the health cna caregiver that requested your imaging first. Chest One View (Exam End: 09/17/2024 2:13 PM) Result Value WORKSTATION ID [id number] Impression 1. No focal opacity in lung [...] who have questions please contact the health cna caregiver that requested your imaging first. Chest One View (Exam End: 09/18/2024 8:43 AM) Result Value WORKSTATION ID [id number] Impression Tubes and lines as described. Blunting of the left costophrenic angle suggests tiny layering left effusion with associated left basilar consolidation/atelectasis Thank you for letting us participate in the care of this patient. If you are a health care provider and have any questions regarding this report, please contact the number below. For patients who have questions please contact the health cna caregiver that requested your imaging first. Abdomen 1 view (Generic) (Exam End: 09/18/2024 12:31 PM) Result Value WORKSTATION ID [id number] Impression Dobbhoff tube tip along the greater curve of the stomach. Thank you for letting us participate in the care of this patient. If you are a health care provider and have any questions regarding this report, please contact the number below. For patients who have questions please contact the health cna caregiver that requested your imaging first. Assessment: 74 y.o. female with PMHx notable for Afib (taking ASA, previously on apixaban-stopped taking after IPH in April 2024), CHRISTOPHER, HLD, BMI of 36, prior IPH 04/2024 who presented to hospital 09/16/24 for placement of Watchman with cardiology. She developed headaches and nausea post op and CT scan noted large R zccgelgb-zapkpel-abwnspurl IPH. Repeated CTH wo contrast overnight showing [...] primary For questions please call NSGY pager [phone] Crys Suarez MD Clinical Documentation Improvement: Active Hospital Problems Diagnosis Presence of Watchman left atrial appendage closure device Resolved Hospital Problems No resolved problems to display. Associated attestation - Sushila Espinal MD - 09/20/2024 1:05 PM EDT I was the attending physician supervising the resident in the above care. I agree with the history,physical exam, assessment, and plan. Sushila Espinal MD PhD Personal Assistant Section of Neurosurgery Department of Surgery [facility] [email or web address] * Ezequiel Morales RN - [...] Gas) No results found for: PHART, PO2ART, URR3MWI Initial Assessment: Received patient intubated on vent [...] FULL. HPI: Patient s/p Watchman procedure, developed 10/ worst headache of life, CT scan revealed [...] 09/18 Pressure support and Peep weaned to 5/5 Action List Medications/ACT: N/A Situational Awareness & Contingency Planning * Serenity Espinosa MD - 09/18/2024 11:04 AM EDT ICU PROGRESS NOTE DOA: 09/16/2024 Room: [facility] Length of Stay: 2 ICU Length of Stay 1d 13h Lucero Bruno ( ) is a 74 y.o. 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 Over night events: Febrile to 101.3, pancultured. Required 3 PRNs for BP control. Medications: Scheduled Meds: acetaminophen 1,000 mg Intravenous Q6H [facility] insulin lispro 1-4 Units Subcutaneous Q4H [facility] [place] Continuous Infusions: niCARdipine 2.5 mg/hr (09/18/24 06) sodium chloride 0.9% 100 mL/hr (09/18/24 0617) [...] Suarez MD - 09/18/2024 7:59 AM EDT [facility] NEUROSURGERY PROGRESS NOTE ID: Lucero Bruno 74 [...] CARLY Continuous Infusions: niCARdipine 2.5 mg/hr (09/18/24 0617) [...] 14.2 PLATELET 250 327 269 Recent Labs 09/18/2415 09/18/24 0020 09/17/24 0039 09/16/24 1029 NA -- 141 141 140 K 4.0 3.6 4.4 4.3 CL -- 108* 108* 104 CO2 -- 22 21* 27 BUN -- 15 15 17 CREATININE -- 0.57* 0.67* 0.68* Recent Labs 09/18/2415 09/18/24 0020 09/17/24 1723 PT 12.3 12.8* 12.1 INR 1.1 1.1 1.1 IMAGING: Results for orders placed or performed during the hospital encounter of 09/16/24 CT Head wo Contrast (Generic) (Exam End: 09/16/2024 5:26 PM) Result Value WORKSTATION ID [id number] Impression Interval expansion of now large right-sided [...] who have questions please contact the health cna caregiver that requested your imaging first. Head wo Contrast (Generic) (Exam End: 09/16/2024 11:21 PM) Result Value WORKSTATION ID [id number] Impression CT head: 1. Interval craniotomy with [...] who have questions please contact the health cna caregiver that requested your imaging first. Venogram Brain (Exam End: 09/16/2024 11:21 PM) Result Value WORKSTATION ID [id number] Impression CT head: 1. Interval craniotomy with [...] of active hemorrhage right parietal) with Sherrie WIRGHT on 09/17/2024 1:12 AM and verified that the results were understood. Thank you for letting us participate in the care of this patient. If you are a health care provider and have any questions regarding this report, please contact the number below. For patients who have questions please contact the health cna caregiver that requested your imaging first. Chest One View (Exam End: 09/16/2024 11:00 PM) Result Value WORKSTATION ID [id number] Impression Satisfactorily positioned enteric and endotracheal tubes. Left lower lobe atelectasis versus pneumonia. Thank you for letting us participate in the care of this patient. If you are a health care provider and have any questions regarding this report, please contact the number below. For patients who have questions please contact the health cna caregiver that requested your imaging first. Abdomen 1 view (Generic) (Exam End: 09/16/2024 11:00 PM) Result Value WORKSTATION ID [id number] Impression Satisfactorily positioned enteric and endotracheal tubes. Left lower lobe atelectasis versus pneumonia. Thank you for letting us participate in the care of this patient. If you are a health care provider and have any questions regarding this report, please contact the number below. For patients who have questions please contact the health cna caregiver that requested your imaging first. Head wo Contrast (Generic) (Exam End: 09/17/2024 4:51 AM) Result Value WORKSTATION ID [id number] Impression Increased size and density of dominant [...] who have questions please contact the health cna caregiver that requested your imaging first. Chest One View (Exam End: 09/17/2024 2:13 PM) Result Value WORKSTATION ID [id number] Impression 1. No focal opacity in lung [...] who have questions please contact the health cna caregiver that requested your imaging first. Assessment: 74 y.o. female with PMHx notable for Afib (taking ASA, previously on apixaban-stopped taking after IPH in April 2024), CHRISTOPHER, HLD, BMI of 36, prior IPH 04/2024 who presented to hospital 09/16/24 for placement of Watchman with cardiology. She developed headaches and nausea post op and CT scan noted large R iljfiaok-gwigaxo-hamzqmdpu IPH. Repeated CTH wo contrast overnight showing [...] primary For questions please call NSGY pager [phone] Crys Suarez MD Clinical Documentation Improvement: Active Hospital Problems Diagnosis Presence of Watchman left atrial appendage closure device Resolved Hospital Problems No resolved problems to display. Associated attestation - Sushila Espinal MD - 09/20/2024 1:06 PM EDT I was the attending physician supervising the resident in the above care. I agree with the history,physical exam, assessment, and plan. Sushila Espinal MD PhD Personal Assistant Section of Neurosurgery Department of Surgery [facility] [email or web address] * Ezequiel Morales RN - 09/18/2024 6:45 AM EDT OUTCOME [...] as Appropriate) * Jose De La Torre MEDICAL RECEPTIONIST BILLER - 09/17/2024 4:45 PM EDT Illness Severity Stable Respiratory Modalities: PS/CPAP 10/+8, 30% Airway: 8.0 @ 22 Teeth Patient Summary Admitted: 09/16/2024 Age: 74 y.o. Code Status: FULL. HPI: Patient s/p Watchman procedure, developed 10/ worst headache of life, CT scan revealed [...] EDT ICU PROGRESS NOTE DOA: 09/16/2024 Room: [address] [place] [address] Length of Stay: 1 ICU Length of Stay 14h Lucero Bruno ( ) is a 74 y.o. 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 who [place] [facility] [place] for watchman procedure subsequently [...] above - ICU potassium repletion protocol - Sergio [...] Deleon MD - 09/17/2024 6:18 AM EDT [facility] NEUROSURGERY PROGRESS NOTE ID: Lucero Bruno 74 [...] 09/16/2024 5:26 PM) Result Value WORKSTATION ID [id number] Impression Interval expansion of now large right-sided [...] who have questions please contact the health cna caregiver that requested your imaging first. Head wo Contrast (Generic) (Exam End: 09/16/2024 11:21 PM) Result Value WORKSTATION ID [id number] Impression CT head: 1. Interval craniotomy with [...] who have questions please contact the health cna caregiver that requested your imaging first. Venogram Brain (Exam End: 09/16/2024 11:21 PM) Result Value WORKSTATION ID [id number] Impression CT head: 1. Interval craniotomy with [...] who have questions please contact the health cna caregiver that requested your imaging first. Chest One View (Exam End: 09/16/2024 11:00 PM) Result Value WORKSTATION ID [id number] Impression Satisfactorily positioned enteric and endotracheal tubes. Left lower lobe atelectasis versus pneumonia. Thank you for letting us participate in the care of this patient. If you are a health care provider and have any questions regarding this report, please contact the number below. For patients who have questions please contact the health cna caregiver that requested your imaging first. Abdomen 1 view (Generic) (Exam End: 09/16/2024 11:00 PM) Result Value WORKSTATION ID [id number] Impression Satisfactorily positioned enteric and endotracheal tubes. Left lower lobe atelectasis versus pneumonia. Thank you for letting us participate in the care of this patient. If you are a health care provider and have any questions regarding this report, please contact the number below. For patients who have questions please contact the health cna caregiver that requested your imaging first. Head wo Contrast (Generic) (Exam End: 09/17/2024 4:51 AM) Result Value WORKSTATION ID [id number] Impression Increased size and density of dominant [...] who have questions please contact the health cna caregiver that requested your imaging first. Assessment: 74 y.o. female with PMHx notable for Afib (taking ASA, previously on apixaban-stopped taking after IPH in April 2024), CHRISTOPHER, HLD, BMI of 36, prior IPH 04/2024 who presented to hospital 09/16/24 for placement of Watchman with cardiology. She developed headaches and nausea post op and CT scan noted large R mwbmvifu-rfvpwmh-rjnvmhuwc IPH. Repeated CTH wo contrast overnight showing [...] primary For questions please call NSGY pager [phone] Dodie Deleon MD Clinical Documentation Improvement: Active [...] questions were answered. Sushila Espinal MD PhD Personal Assistant Section of Neurosurgery Department of Surgery [facility] [email or web address] * Elvin Vallecillo RCP - 09/17/2024 4:54 AM EDT Illness Severity Stable Respiratory Modalities: PS/CPAP (S) 360/+(S) 8, x15 41 % ((S) 8 ml/kg) Airway: 8.0 @ 22 Teeth Patient Summary Admitted: 09/16/2024 Age: 74 y.o. Code Status: FULL. HPI: Patient s/p Watchman procedure, developed 10/ worst headache of life, CT scan revealed [...] 09/16/2024 4:20 PM EDT 09/16/24 4:20 PM Lucero Bruno 1950 Called to patient bedside. Nurse [...] Colbert PA-C Interventional Cardiology Structural Heart Team [facility] Pager [phone] documented in this encounter H&P Notes * [...] Was dysphagia screen performed?: No CC: R IP ID: Lucero Bruno is a 74 y.o. [...] 0.63) performed by Sushila Espinal MD at [facility] MAIN OR PRO LAPAROSCOPY W TOT HYSTERECTUTERUS <=250 GRAM W TUBE/OVARY N/A 04/23/2024 LAPAROSCOPY, TOTAL HYST, UTERUS<250GMS, REM TUBE &/OR OVARY (VU 15) performed by Xiomara Burkett MD at [facility] MAIN OR PRO OPEN SKULL EVAC INTRACEREBR BLOOD Right 09/16/2024 @CRANI-HEMATOMA EVACUATION, INTRACEREBRAL (VU 28.09) performed by Sushila Espinal MD at [facility] MAIN OR PRO PERQ CLSR TCAT L ATR APNDGE W/ENDOCARDIAL IMPLNT N/A 09/16/2024 @PERQ TRANSCATH CLOSURE LEFT ATRIAL APPENDAGE W ENDOCARDIAL IMPLANT, INC RAD S&I (VU 14) performed by Duane Causey MD at [facility] CATH LABS Allergy: Allergies Allergen Reactions Oxycodone-Acetaminophen [...] brain wo contrast -CTA head & neck -PT/OT/TAG MARKER -Neurosurgery consulted # Leukocytosis # Pneumonia - on Zosyn (09/24 - 09/29) - CBC - ID consult - C. Diff negative # Prophylaxis -heparin 5000units SC Q8H -RBOs -SCDs # Supportive care -NPO -Tylenol PRN -Up with assistance # FULL code Stroke Navigator Completed: Yes Umm Goodrich MD Vascular Neurology Pager [phone] Standard [facility] Swallow Screen: This screen is [...] diet as medical provider deems appropriate. Consider TAG MARKER consult for full evaluation and diet recommendations. [...] be 2/2 to CAA who presented to [facility] today for watchman procedure subsequently [...] 15) performed by Xiomara Burkett MD at [facility] MAIN OR Social History Tobacco Use Smoking [...] 24 hour(s)) Type and Screen Future Surgery, [facility] SAME DAY PROGRAM ONLY) Result Value Ref Range PATIENT HISTORY Found Expires at 2359 on: 09-19-2024 ABORH Type O POSITIVE ANTIBODY SCREEN AUTOMATED Negative T&S only valid at [facility] LAB CBC (with Diff) Result [...] Information Issued Product Identification APH-PLTS Unit Number [id number] Product Code [id number] Unit Blood Type APOS Specimen Expiration Date 540391542676 Volulme 236 Issue Date / Time [id number] POC, GLUCOSE Result Value Ref Range Glucometer, POC 170 65 - 199 mg/dL Prepare RBC Result Value Ref Range Status Information Returned Product Identification RBC Unit Number [id number] Product Code [id number] Unit Blood Type OPOS Specimen Expiration Date Volulme 350 Issue Date / Time Status Information Returned Product Identification RBC Unit Number [id number] Product Code [id number] Unit Blood Type OPOS Specimen Expiration Date Volulme 350 Issue Date / Time Status Information Returned Product Identification RBC Unit Number [id number] Product Code [id number] Unit Blood Type OPOS Specimen Expiration Date Volulme 350 Issue Date / Time Imaging: Results for orders placed or performed during the hospital encounter of 09/16/24 CT Head wo Contrast (Generic) (Exam End: 09/16/2024 5:26 PM) Result Value WORKSTATION ID [id number] Narrative EXAMINATION: CT HEAD WO CONTRAST (GENERIC) [...] who have questions please contact the health cna caregiver that requested your imaging first. Cardiac Catheterization (Exam End: 09/16/2024 3:16 PM) [facility] Cardiac Catheterization/Intervention Report Patient Name: Lucero Bruno Procedure Date: 09/16/2024 A #: [id number] Primary Physician: Duane Causey V Case #: [id number] File Name: [id number] Catheterization Order Number: [id number] [facility] Final Report [place], [place] Patient Name: Lucero Smithson ID#: [id number] : 1950 Procedure Date: September 16, 2024 [...] was designated as ASA Class III. The [facility] clinical frailty scale is 5: Mildly Frail. Diagnostic Tests: Prior Coronary Angiography: LV ejection fraction within 6 months is 75%. Electrocardiography: EKG was assessed by ECG. Medications Prior to Procedure: Aspirin and Calcium Channel Blocking Agent. Indications for Diagnostic Cath: The priority of the diagnostic procedure was Elective. The indication for the cardiac cath lab manager visit is cardiac arrhythmia. Chest pain symptom assessment was: Asymptomatic. Technique: A 17Fr sheath was inserted in the right femoral vein utilizing the Seldinger technique. The left atrium was injected utilizing a 6Fr PIGTAIL catheter. Left atrial pressure was performed with a 6Fr ANGLED PIGTAIL catheter. Transseptal puncture was performed with an 8.5Fr RelayRides NRG RF Needle. 7,000 units of heparin [...] for atrial fibrillation. The patient had a LFT5SF0-DSYp score of 4, a HAS-BLED score of [...] using an 8.5 Fr VersaCross Transseptal 45 degree introducer and VersaCross pigtail RF wire needle. The left atrial occlusion procedure was performed with fluoroscopy and MONICA guidance. An angled pigtail was placed in the left atrial appendage and exchanged for a Watchman TruSeal Double Curve delivery sheath. A Watchman FLX Closure Device 27 mm (s/l/n [id number]) was prepared and deployed using standard technique. [...] to nor was it given in the cardiac cath lab manager. Recommended anti-platelet/anti-thrombotic regimen: Continue aspirin 81 mg daily for indefinitely. These recommendations are made at the time of the intervention. Patient and provider preferences or a changing clinical situation may require modification of this regimen. Consult [facility] Interventional Cardiology for questions. Conclusions: [...] Dispo: NCCU ADRIANA Shay NCCU team pager #[phone] * Amari Colbert PA - 09/16/2024 4:15 PM EDTSummary: Post Procedure Admit H&P [facility] Heart [facility] Interventional [...] primary care cardiology provider Iliana Carpenter APRN ([place] cards) for evaluation of cardiac hemodynamics, [...] suffered a hemorrhagic stroke shortly after elective numberer and wirer / hysterectomysurgery. HAS-BLEd > 3. She continues [...] a Transseptal puncture was performed using the RelayRides VersaCross System. A WM TruSteer sheath was tracked across the inter-atrial septum without difficulty. An angled angiographic pig tail catheter (6Fr) was then positioned in the ANGUS through which an angiogram was performed showing anatomy c/w MONICA findings (LA = 12 mmHg). A Watchman FLX-Pro 27 mm ([id number]) was prepped according to the Front Desk Administrator's IFU with special attention to elimante all [...] ADRIANA Phillip Interventional Cardiology 09/16/24 4:16 PM [facility] Pager: [phone] * Amari Colbert PA - 09/16/2024 1:18 PM EDT Patient Name: Lucero Bruno Patient Age: 74 y.o. Birthdate: 1950 Admit date: 09/16/2024 Attending Physician: Duane Lazcano MD [facility] Heart [facility] Interventional Cardiology Structural Heart Program Adult Pre-Procedure H&P Update: Left Atrial Appendage Occlusion, percutaneous Lucero Bruno [id number] 1950 Chief Complaint: Atrial fibrillation, elevated stroke risk Inability to tolerate systemic anticoagulation HPI: Lucero Bruno is a 74 y.o. female referred for cardiac catheterization by her primary care cardiology provider Iliana Carpenter APRN ([facility] [employer]) for evaluation of cardiac hemodynamics, left atrial [...] suffered a hemorrhagic stroke shortly after elective numberer and wirer / hysterectomysurgery. HAS-BLEd > 3. She continues [...] Htn Other Pertinent Medical History: SOCIAL Hx: SO chase here with her Live in [place], [place] Outpatient Medications Marked as Taking for [...] ADRIANA Phillip Interventional Cardiology 09/16/24 1:18 PM [facility] Pager: [phone] documented in this encounter Procedure Notes * [...] related orders have been discontinued. Please page [phone] with questions regarding this patient. ADRIANA Leonardo * GeorgeBonnie PA - 09/21/2024 12:55 PM EDTAssociated Order(s): INTUBATION Intubation Procedure Note Reason for Intubation: Airway obstruction and Airway protection. Procedure Diagnosis: Respiratory distress [facility] Risks and Benefits: The risks and benefits [...] intubation status comments: First attempt by this medical technical writer. Encountered lots of oral secretions with [...] headache pain and began vomiting. Attending MD, ADRIANA, and anesthesia MD to bedside. See emar [...] agent and s/o Chase San as alternate [phone] ( this is pts cell phone) * Care Management - Anupama Pastrana RN - 10/11/2024 4:15 PM EST OFFICE OF CARE MANAGEMENT PROGRESS NOTE LOS: Hospital Day 25 days Chart reviewed, care reviewed with primary team and at interdisciplinary rounds. 10/11/2024 patient offered and accepted SNF bed at [facility] in [place], [place]. Jose Pollard notified of same and in agreement with the plan. Medical Decision Maker: GREGORYHC, Surrogate *surrogate is jose Pollard Guardianship needed: 0 Surrogate Name: Don Pollard Surrogate Contact Information: cell: [phone] Financial Decision Maker: Self Functional status prior [...] Insurance: MEDICAID [place] Last Physical Therapy Recommendation: senior care facility with to be determined (10/11/24 1001) Last Occupational Therapy Recommendation: senior care facility with to be determined (10/11/24 3396) Plan for discharge is: Pending Hospital Course and PT/OT Recommendations Outpatient Agency/Support Group Needs: Clinic(s) Agency Choices: [facility] clinic Agency Referrals: Not Applicable Transportation: family or friend will provide Barriers to discharge: Global: Discharge planning Global Comment: the patient may benefit from an inpatient rehab stay prior to returning home. Psychosocial: *lengthy recovery anticipated; appreciative of support from [facility] care teams Supports: *RANDY Olson, has pets at home ICU Needs: none / ready for downgrade *no longer with ICU needs Plan: Patient is medically ready per medical team. Plan going forward is: discharge to [facility] 10/12/2024. Anticipated Date of Discharge: 10/12/2024 Anupama Pastrana, MSN, RN ACM-RN [facility] golf course patroller * Care Management - Anupama Pastrana, RN - 10/11/2024 12:50 PM EST OFFICE OF CARE MANAGEMENT PROGRESS NOTE LOS: Hospital Day 25 days Chart reviewed, care reviewed with primary team and at interdisciplinary rounds. Medical Decision Maker: JOSE-HC, Surrogate *surrogate is jose Pollard Guardianship needed: 0 Surrogate Name: Don Pollard Surrogate Contact Information: cell: [phone] Financial Decision Maker: Self Functional status prior [...] Insurance: MEDICAID [place] Last Physical Therapy Recommendation: senior care facility with to be determined (10/11/24 1001) Last Occupational Therapy Recommendation: senior care facility with to be determined (10/06/24 1328) Plan for discharge is: Pending Hospital Course and PT/OT Recommendations Outpatient Agency/Support Group Needs: Clinic(s) Agency Choices: [facility] clinic Agency Referrals: I have met with the patient and son Don Pollard who has requested to have referrals be expanded to: [facility] [address] [place] [address] [facility] ([place]) [address] [place] [address] [facility] [address] [place] [address] Note routed to a Supervisor Dials who will communicate referrals to facilities and provide any required information. Transportation: family or friend will provide v medical transportation Barriers to discharge: Global: Discharge planning Global Comment: the patient may benefit from an inpatient rehab stay prior to returning home. Psychosocial: *lengthy recovery anticipated; appreciative of support from [facility] care teams Supports: *RANDY Olson, has pets at home ICU Needs: none / ready for downgrade *no longer with ICU needs Plan: Patient is medically ready per medical team. Plan going forward is: expand SNF referrals Anticipated Date of Discharge: 10/15/2024 Anupama Pastrana MSN, RN ACM-RN [facility] golf course patroller * Plan of Care - Latosha Winston RN - 10/11/2024 11:21 AM EST Pt is A/O x3, currently on RA however requires NC intermittently has hx of CHRISTOPHER but refuses CPAP. VSS, Pain appears controlled today reports trazadone helped her sleep last night. PT OOB to chair today with lift and PT/OT, TAG MARKER to see as well. Tolerating bolus TF. [...] and at interdisciplinary rounds. Medical Decision Maker: DPOA-HC, Surrogate *surrogate is jose Pollard 10/08/2024 TF adjusted to bolus 10/07; followed by TAG MARKER (PEG placed 10/04) Appears more interactive; participates in conversation appropriately. Family/SO remain very supportive and involved Guardianship needed: 0 Surrogate Name: Don Pollard Surrogate Contact Information: cell: [phone] Financial Decision Maker: Self Functional status prior [...] Insurance: MEDICAID [place] Last Physical Therapy Recommendation: senior care facility with to be determined (10/06/24 1324) Last Occupational Therapy Recommendation: senior care facility with to be determined (10/06/24 1328) Plan for discharge is: Pending Hospital Course and PT/OT Recommendations Outpatient Agency/Support Group Needs: Clinic(s) Agency Choices: [facility] clinic Agency Referrals: I have met with the district representative, who has requested to have referrals be expanded. First choice would be [facility] in [place], [place]; bed update requested in [facility]. Please refer to additional progress note 10/08/2024 for expanded referral choices. Note routed to a Supervisor Dials who will communicate referrals to facilities and provide any required information. Transportation: family or friend will provide Barriers to discharge: Global: Discharge planning Global Comment: the patient may benefit from an inpatient rehab stay prior to returning home. Psychosocial: *lengthy recovery anticipated; appreciative of support from [facility] care teams Supports: *son RANDY Ochoa, has pets at home ICU Needs: none / ready for downgrade *no longer with ICU needs Plan: Patient is medically ready per medical team. Plan going forward is: continue to pursue SNF bed Anticipated Date of Discharge: 10/11/2024 Anupama Pastrana, MSN, RN OCM-RN [facility] golf course patroller * Consult Note - Sonia Mac APRN [...] op and CT scan noted large R shnzgvwl-mamgfyk-npjfvjusg IPH. Now s/p R craniotomy for IPH [...] water 30 mL FEEDING TUBE Q4H CARLY Diet Tube Feed: Nutren 1.5 (standard, energy-dense) (1.5 kcal/mL) Per G Tube 4 Times Daily protein powder 2 Scoop Per G Tube TID insulin lispro 2-12 Units Subcutaneous Q4H CARLY insulin lispro 0-8 Units Subcutaneous 4 Times [...] op and CT scan noted large R meokijbt-avockiz-jkmmlvypl IPH. Now s/p R craniotomy for IPH [...] us to provide care for your patient Soniakiana Mac APRN Endocrinology Diabetes Management Service Pager: [phone] Weekends please page [phone] 80 minute visit was spent in counseling [...] without apparent complication. Labs/VS monitored. SS drainage (AUBREY site) w/o abnormal labs or fevers. MRI [...] Insurance: MEDICAID [place] Last Physical Therapy Recommendation: senior care facility with to be determined (10/04/24 1025) Last Occupational Therapy Recommendation: senior care facility with to be determined (10/04/24 0950) Plan for discharge is: Pending Hospital Course and PT/OT Recommendations Outpatient Agency/Support Group Needs: Clinic(s) Agency Choices: [facility] clinic Agency Referrals: I have met with the district representative, who has requested to have referrals be expanded to: [facility] [address] [place] [address] [address] [facility] [address] [place] [id number] This note medical technical writer spoke with [facility] admission coordinator (Akiko) who stated that there are no female SNF beds available at this time. Akiko will update the referral placed in [facility]. Jose Ochoa updated with the above; as such, agreeable to expand referrals. Note routed to a Supervisor Dials who will communicate referrals to facilities and [...] Discharge: 10/08/2024 Anupama Pastrana, MSN, RN ACM-RN [facility] golf course patroller * Plan of Care - Anabel De La Garza RN - 10/05/2024 1:42 PM EST OUTCOME EVALUATION NOTE: OUTCOME SUMMARY: Pt VSS on RA, no complaints of pain, tolerating TF well, Flexi removed due to decreased output, Neuro exam unchanged from previous day, no new orders today. PLAN MOVING FORWARD: Q2 VS, NC & I&O PT/OT/TAG MARKER INDIVIDUALIZED FALL PREVENTION INTERVENTIONS: Patient-specific fall risk [...] MOVING FORWARD: Q2 VS, NC & I&O PT/OT/TAG MARKER q4h FSG INDIVIDUALIZED FALL PREVENTION INTERVENTIONS: Patient-specific [...] MOVING FORWARD: Q2 VS, NC & I&O PT/OT/TAG MARKER INDIVIDUALIZED FALL PREVENTION INTERVENTIONS: Patient-specific fall risk [...] Role Xenia Acuña X-Ray Technologist Brad Lubin business control manager Nurse Jony Sampson MD Attending Post-operative diagnosis/Indication: [...] (Interventions Implemented as Appropriate) * Plan of Ruma - Harriet Keith RN - 10/03/2024 3:24 [...] Butler Urgency Level: Call Me Callback Number: [phone] The following Message was sent: [Call Me] - Callback:[phone] Damion Pupils sluggish, L is 5cm, [...] Nurse Note Situation: Asked to see Lucero Brnuo by [facility] juvenile justice specialist for skin concerns of the right butt, [...] chat or the wound care team at [phone] or pager [phone] with skin and wound care concerns or [...] satisfactory saturations. Working with and followed by PT/OT/TAG MARKER. Ongoing dysphagia concerning; PEG conversation planned. Labs [...] Insurance: MEDICAID [place] Last Physical Therapy Recommendation: senior care facility with to be determined Last Occupational Therapy Recommendation: senior care facility with to be determined Plan for discharge is: Pending Hospital Course and PT/OT Recommendations Outpatient Agency/Support Group Needs: Clinic(s) Agency Choices: [facility] clinic Agency Referrals: Not Applicable; SNF referral to [facility] in [place], [place]. No bed offer at this time. ADDENDUM 09/28/2024: VM left for Admissions/SW at [facility] requesting update. May need to expand referrals if [facility] declines. May need to expand referral base; son lives in [place], [place] but SO Chase (who has health issueshimself) lives in [place], [place] Further discussion planned. Transportation: family or [...] conversation. Anticipated Date of Discharge: 09/30/2024 Anupama Pastrana MSN, RN ACM-RN [facility] golf course patroller * Plan of Care - Matheus Coates [...] no output since 0800, NPO give meds, TAG MARKER eval approved ice chips intermittently (RN did [...] Out: 130 [Urine:80; Stool:50] Recent Labs 09/27/24 01309/26/24 0031 09/25/2442809/24/24 0500 09/23/24 0101 WBC 39.03* 30.94* 27.24* 19.25* 19.97* HGB 12.5 10.7* 10.5* 9.7* 10.0* HCT 37.4 32.2* 31.9* 30.6* 30.1* PLATELET 510* 434* 379* 342 293 NEUTROABS 33.22* 23.25* 23.24* 16.30* 16.80* Recent Labs 09/27/2413709/26/24 1216 09/26/2435 09/26/24 0031 09/25/24 0429 09/24/24 0500 NA 139 -- 137 137 138 138 K 3.8 4.2 3.7 3.7 4.1 4.2 CL 103 -- 104 104 102 102 CO2 25 -- 23 23 24 26 BUN 17 -- 23* 26* 28* 28* CREATININE 0.51* -- 0.53* 0.56* 0.49* 0.51* GLUCOSE 148 -- 153 179 185 202* Recent Labs 09/27/2413709/26/2435 09/26/24 0031 09/25/24 042 CALCIUM 8.5 8.1* 7.9* 8.4* MAGNESIUM 0.91 -- 0.78 0.91 PHOS 4.0 3.3 3.1 3.4 Recent Labs 09/26/24 0635 09/23/24 0756 AST 28 18 ALT 72* 56* ALKPHOS 81 80 BILITOT 0.4 0.3 BILIDIR <0.2 <0.2 Recent Labs 09/26/24 0635 CK 78 No results for input(s): PHART, UTI9GUN, PO2ART, NRD3EYI in the last 168 hours. No results [...] 09/16/2024 5:26 PM) Result Value WORKSTATION ID [id number] Impression Interval expansion of now large right-sided [...] who have questions please contact the health cna caregiver that requested your imaging first. Head wo Contrast (Generic) (Exam End: 09/16/2024 11:21 PM) Result Value WORKSTATION ID [id number] Impression CT head: 1. Interval craniotomy with [...] who have questions please contact the health cna caregiver that requested your imaging first. Venogram Brain (Exam End: 09/16/2024 11:21 PM) Result Value WORKSTATION ID [id number] Impression CT head: 1. Interval craniotomy with [...] who have questions please contact the health cna caregiver that requested your imaging first. Chest One View (Exam End: 09/16/2024 11:00 PM) Result Value WORKSTATION ID [id number] Impression Satisfactorily positioned enteric and endotracheal tubes. Left lower lobe atelectasis versus pneumonia. Thank you for letting us participate in the care of this patient. If you are a health care provider and have any questions regarding this report, please contact the number below. For patients who have questions please contact the health cna caregiver that requested your imaging first. Abdomen 1 view (Generic) (Exam End: 09/16/2024 11:00 PM) Result Value WORKSTATION ID [id number] Impression Satisfactorily positioned enteric and endotracheal tubes. Left lower lobe atelectasis versus pneumonia. Thank you for letting us participate in the care of this patient. If you are a health care provider and have any questions regarding this report, please contact the number below. For patients who have questions please contact the health cna caregiver that requested your imaging first. Electronically signed by: Pamela Beard [facility] ([phone]), at 09/17/2024 12:[address] Head wo Contrast (Generic) (Exam End: 09/17/2024 4:51 AM) Result Value WORKSTATION ID [id number] Impression Increased size and density of dominant [...] who have questions please contact the health cna caregiver that requested your imaging first. Chest One View (Exam End: 09/17/2024 2:13 PM) Result Value WORKSTATION ID [id number] Impression 1. No focal opacity in lung 2. Pulmonary edema, progressed since last examination. 3. Tip of ET tube is 23 mm superior cuff to jnoathan. Consider adjustment. 4. Sidehole and tip of NG tube is below the diaphragm. Thank you for letting us participate in the care of this patient. If you are a health care provider and have any questions regarding this report, please contact the number below. For patients who have questions please contact the health cna caregiver that requested your imaging first. Chest One View (Exam End: 09/18/2024 8:43 AM) Result Value WORKSTATION ID [id number] Impression Tubes and lines as described. Blunting of the left costophrenic angle suggests tiny layering left effusion with associated left basilar consolidation/atelectasis Thank you for letting us participate in the care of this patient. If you are a health care provider and have any questions regarding this report, please contact the number below. For patients who have questions please contact the health cna caregiver that requested your imaging first. Abdomen 1 view (Generic) (Exam End: 09/18/2024 12:31 PM) Result Value WORKSTATION ID [id number] Impression Dobbhoff tube tip along the greater curve of the stomach. Thank you for letting us participate in the care of this patient. If you are a health care provider and have any questions regarding this report, please contact the number below. For patients who have questions please contact the health cna caregiver that requested your imaging first. Brain wwo Contrast (Generic) (Exam End: 09/19/2024 5:43 PM) Result Value WORKSTATION ID [id number] Impression Unchanged size of large right cerebral hemisphere ICH status post partial evacuation. Numerous small foci of decreased acute infarction both along and separate from the site of hemorrhage. These foci are present in both cerebral hemispheres and have a pattern most consistent with embolic infarction. No evidence of LEADERSHIP COACH malignancy Thank you for letting us participate in the care of this patient. If you are a health care provider and have any questions regarding this report, please contact the number below. For patients who have questions please contact the health cna caregiver that requested your imaging first. Head wo Contrast (Generic) (Exam End: 09/21/2024 3:50 AM) Result Value WORKSTATION ID [id number] Impression Stable hemorrhage right temporal, parietal, right [...] who have questions please contact the health cna caregiver that requested your imaging first. Abdomen 1 view (Generic) (Exam End: 09/21/2024 2:01 PM) Result Value WORKSTATION ID [id number] Impression Dobbhoff tube and enteric tube sidehole [...] who have questions please contact the health cna caregiver that requested your imaging first. Chest One View (Exam End: 09/21/2024 2:01 PM) Result Value WORKSTATION ID [id number] Impression ET tube with tip projecting approximately [...] who have questions please contact the health cna caregiver that requested your imaging first. Head wo Contrast (Generic) (Exam End: 09/22/2024 4:02 AM) Result Value WORKSTATION ID [id number] Impression Stable head CT status post removal of subcutaneous drain. No new or enlarging hemorrhage. Stable pattern of mass effect Thank you for letting us participate in the care of this patient. If you are a health care provider and have any questions regarding this report, please contact the number below. For patients who have questions please contact the health cna caregiver that requested your imaging first. Angiogram Chest for Pulmonary Embolus w Contrast (Exam End: 09/26/2024 1:37 PM) Result Value WORKSTATION ID [id number] Impression 1. No pulmonary embolism. 2. Pulmonary [...] who have questions please contact the health cna caregiver that requested your imaging first. Head wo Contrast (Generic) (Exam End: 09/26/2024 1:37 PM) Result Value WORKSTATION ID [id number] Impression 1. Stable right-sided parenchymal and subdural [...] who have questions please contact the health cna caregiver that requested your imaging first. Abdomen & Pelvis w Contrast (Exam End: 09/26/2024 1:37 PM) Result Value WORKSTATION ID [id number] Impression 1. No pulmonary embolism. 2. Pulmonary [...] who have questions please contact the health cna caregiver that requested your imaging first. Assessment and [...] to follow Please page Vascular Neurology at #[phone] with any questions. Umm Goodrich MD Neurology, PGY3 Department [place] [address] Associated attestation - Dinesh Bauer MD - [...] on file). * Initial Assessments - Areli Hathaway SLP - 09/27/2024 11:31 AM EST Speech Therapy Clinical Swallow Evaluation Patient Profile: Lucero Bruno is a 74 y.o. female with PMHx of A-fib, CHRISTOPHER, HLD, and prior IPH (04/2024) who [facility] [place] [facility] [place] for placement of Watchman with cardiology. She developed headaches and nausea post-operatively and was found to have a large R serxgcpm-paxprfv-ocsexnlca IPH, now s/p craniotomy. Patient was intubated from 09/16-09/21 with extubation complicated by stridor requiring re-intubation from 09/21-09/26 (11 days total). TAG MARKER was consulted on 09/21 per CVA protocol [...] Comments Thin liquids X Water via swab Carlyss thick liquids Honey thick liquids Pureed solids [...] ice chips for comfort and practice between TAG MARKER sessions. We will continue to perform serial [...] aspiration pneumonia Pt will benefit from continued TAG MARKER services while hospitalized Speech Therapy Goals: (To be met by discharge) Pt will tolerate the least restrictive diet without further respiratory decompensation. NEW Pt / caregiver will be independent with aspiration precautions, diet modifications, and safe swallowing strategies. NEW Plan: Therapy Frequency (TAG MARKER Eval): 3-5 times/wk Patient is in agreement with the plan of care. Total Minutes (Speech Language Pathology): 35 Thanks for the opportunity to contribute to this patient's care. Please feel free to page me with any questions or concerns. Areli Hathaway MS, [facility])-TAG MARKER Speech-Language Pathologist Inpatient Rehabilitation Pager # [phone] * Plan of Care - Jose Franco [...] with you. Please call with questions, pager [phone]. Discussed with attending, Dr. Gabriel. Chino Washburn [...] on the date of service on the tqen-yl-gawb encounter, chart review, clinical decision making, documentation, and coordination of care. Rae Gabriel MD Professor, Department of Medicine Page [phone] * Plan of Care - Eleazar Mc [...] (Interventions Implemented as Appropriate) * Plan of Ruma - Eleazar Mc RN - 09/24/2024 11:09 [...] to be determined Last Occupational Therapy Recommendation: senior care facility with to be determined Patient is insured through: Primary Insurance: MEDICARE Payor: MEDICARE / Plan: MEDICARE PART A & B / Product Type: *No Product type* / Secondary Insurance: MEDICAID [place] Prescription Coverage: Yes Preferred Pharmacy: [facility] [place], [place] - [address] [place] [id number] Plan for discharge is: Pending Hospital Course and PT/OT Recommendations Agency Referrals & Follow-up Care: Based on discussions with the multi-disciplinary healthcare team, the patient would benefit from SNF level of care at discharge. I have met with the district representative (son Don Pollard) to: discuss discharge planning needs. provide the [facility], Office of Care Management letter from the Recruitment [employer]ship pertaining to rehab referrals. provide a letter describing our affiliations within the [facility] and educate about their right to choose where referrals are sent. provide the CMS Star Quality Rating handout. review the different levels of rehab including SNF, swing, and acute. provide a list of facilities within their preferred geographic area. request that they provide at least three choices for referral. They have requested referrals to: [facility] and [facility] [address] [place] [address] Note routed to a Supervisor Dials who will communicate referrals to facilities and provide any required information. Transportation: family or friend will provide Barriers to discharge: Discharge planning Plan going forward: Care Management will continue to follow and assist with discharge planning and coordination of care as indicated. Anticipated Date of Discharge: 09/27/2024 v pending hospital course Anupama Pastrana, MSN, RN ACM-RN [facility] golf course patroller * Plan of Care - Hank Oquendo [...] as Appropriate) * Initial Assessments - Diana Lucas, OT - 09/22/2024 11:54 AM EDT Occupational Therapy Evaluation Patient profile: Lucero Bruno is a 74 y.o. female admitted on 09/16/2024. 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 who presented to [facility] today for watchman procedure subsequently [...] 0.63) performed by Sushila Espinal MD at [facility] MAIN OR PRO LAPAROSCOPY W TOT HYSTERECTUTERUS <=250 GRAM W TUBE/OVARY N/A 04/23/2024 LAPAROSCOPY, TOTAL HYST, UTERUS<250GMS, REM TUBE &/OR OVARY (WRVU 15) performed by Xiomara Burkett MD at [facility] MAIN OR PRO OPEN SKULL EVAC INTRACEREBR BLOOD Right 09/16/2024 @CRANI-HEMATOMA EVACUATION, INTRACEREBRAL (WRVU 28.09) performed by Sushila Espinal MD at [facility] MAIN OR Subjective: Pt received in bed without visitors present. Pt ok for evaluation this date per RN. Pt A&Ox2 and VSS. Pt intubated and on 35% FiO2 5/8. Handoff given to RN including pt's location, [...] wrist restraints Vision & Perception: corrective lenses time study engineer Communication: communicated through thumbs up/down and nodding [...] to be determined Anticipated Discharge Disposition (OT): senior care facility Other Recommendations: EPM Level 1: HOB [...] 2-3 times/wk Total Minutes, Occupational Therapy: 18 ([id number]) Planned OT interventions: Role of occupational therapy/rehabilitation, [...] treatment provided: None, initial evaluation only. Diana Lucas OTR/L They/Them Occupational Therapy Rehabilitation Department Pager # [phone] * Care Management - Xenia Crane RN [...] Outpatient Agency/Support Group Needs: Clinic(s) Agency Choices: [facility] clinic Agency Referrals: Not Applicable Transportation: family [...] 09/27/2024 Office of Care Management Float / time study engineer back digger operator [email or web address] Pager #[phone] * Plan of Care - Seth Wade RN - 09/21/2024 6:35 PM EDT OUTCOME EVALUATION NOTE: OUTCOME SUMMARY: Pt intubated, on PS, 8/8, 40% FiO2, copious thick secretions. Pt A&Ox4, follows command with RUE and RLE, LUE and LLE withdraw from painful stimuli. Pt in NSR, SBP goal of 90-160 maintained. Sergio AUSTEPHANIE, BMx1 this shift. EVENTS: ~1200 pt extubated and reintubated ~1230 d/t labored breathing ~1330- right parietal drain removed per Neurosurg team PLAN MOVING FORWARD: Q2 I&Os Q2 neuro checks Q1 VS Activity as tolerated Q4 BG 09/22 CTH 0400 CPG GOAL OUTCOME EVALUATION: Problem: Adjustment [...] Outpatient Agency/Support Group Needs: Clinic(s) Agency Choices: [facility] clinic Agency Referrals: WASHING MACHINE STRIPER services- will send a referral once patient [...] of Discharge: 09/27/2024 Office of Care Management time study engineer golf course patroller Stephanie Louise MSN RN [email or web address] [phone] pager [phone] * Plan of Care - Vernon Leos RN - 09/21/2024 1:53 AM EDT Summary of hospitalization: Lucero Bruno is a 74 y.o. 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 who presented to [facility] today for watchman procedure subsequently [...] 0.63) performed by Sushila Espinal MD at [facility] MAIN OR PRO LAPAROSCOPY W TOT HYSTERECTUTERUS <=250 GRAM W TUBE/OVARY N/A 04/23/2024 LAPAROSCOPY, TOTAL HYST, UTERUS<250GMS, REM TUBE &/OR OVARY (WRVU 15) performed by Xiomara Burkett MD at [facility] MAIN OR PRO OPEN SKULL EVAC INTRACEREBR BLOOD Right 09/16/2024 @CRANI-HEMATOMA EVACUATION, INTRACEREBRAL (WRVU 28.09) performed by Sushila Espinal MD at [facility] MAIN OR Status: Stable Subjective/Objective: gesturing to have ETT removed Assessment: see DocFlow for details, otherwise significant highlights include the following: N/pain: [id number] (E4V1M6). Anxiolytic gtt titrated to RASS 0Neuro [...] approx with stacey, scant dried old blood, PIPER. Endo: FSBS q4h, coverage via standing/SSI, see eMAR. ID: [id number]. Abx/virals: none. Noting uptrending WBC, LD: see Avatar. SG drain with minimum sanguinous output (<20mL over 12h) Act: T&R q2h whilst in bed, pROM LUE/LLE q2h. Social: no callers/visitors overnight. Plan/Recommendation: CTH result pending Order PT/OT/TAG MARKER Potential extubation today Monitor for signs of [...] ADLs]: Hands on Surveillance [continuous indirect monitoring]: [facility] ICU, bed alarm, purposeful rounding, room near [...] Matute MSW - 09/17/2024 3:09 PM EDT KISHAN completed the Social Work Initial Assessment with patient's son, Don Pollard [phone], andchart review. Patient is not medically stable [...] Contact Information: Patient's son is primary support, Johnathon [phone] and RANDY Chase, who lives close to the patient. Quality [...] Employment / Comments: Financial Source of Income: pension/fci, social security Financial / Environmental Concerns: Utilities Shut off: No Food Insecurity Worry: Never true Inability to pay for food: Never true Who Manages Finances if Patient Unable: Patient Public Assistance Status Comments: Finance Comments: Legal Legal Concers that Impact Hospitalization: none MENTAL / BEHAVIORAL HEALTH Values / Beliefs Scientology / Spiritual Practices and Beliefs : Deferred Coping / Stress Major Change / Loss / Stressor: none Patient Personal Strengths: able to adapt Sources of Support: adult child(yen), significant other Techniques to [place] with Loss/Stress/Change: medication Reaction to Health Status: [...] primary care cardiology provider Iliana Carpenter APRN ([facility] cards/[place] cards) for evaluation of cardiac hemodynamics, left atrial appendage anatomy, and implantation of left atrial appendage occlusion device (Watchman FLX) if indicated. Patient is unable to respond to questions at this time. BARREL LOADER AND CLEANER reviewed medical chart and completed the Initial [...] and use the stairs. Social Work Plan: BARREL LOADER AND CLEANER and golf course patroller will continue to follow patient with the medical team through rounds and updated medical notes. BARREL LOADER AND CLEANER will continue to communicate with patient and patient's family and SO to inform them of medicalstatus. * Initial Assessments - Anupama Pastrana RN - 09/17/2024 1:42 PM EDT Office of Care Management Initial Assessment Anupama Pastrana RN reviewed record and discussed patient with Care Team. Source of Information: Team, bedside nurse, medical record, and Child, Patient, Chart Review, Other(interdisciplinary care team, son Don Pollard, chart review=patient have central line placed) [...] surrogate would be surrogate decision maker per [place] surrogate decision making law. (Only good for 180 days) Any patient receiving care in [place] must abide by [place] law. The hierarchy for surrogate decision making is: (a) Patient???s spouse or civil union partner unless there is a divorce proceeding, separation agreement, or restraining order limiting that person???s relationship with the patient. (b) Any adult son Don Pollard ([phone]) or daughter of the patient. (c) Either parent of the patient. (d) Any adult brother or sister of the patient. (e) Any adult grandchild of the patient. (f) Any grandparent of the patient. (g) Any adult aunt, uncle, niece, or nephew of the patient. (h) A close friend of the patient. (i) The agent with financial power of civil attorney or a conservator appointed in accordance with [...] Arrangements: home/apartment/condo. Accessibility Concerns:single family residence in [place], [place]. multi level. 5 ZAIN.. In the last 12 months, was there a time when you were not able to pay the mortgage or rent on time?: No In the past 12 months, how many times have you moved where you were living?: 0 At any time in the past 12 months, were you homeless or living in a fdc (including now)?: No In the past 12 months has the [employer] gas, oil, or water [employer] threatened to shut off services in your [...] Home Address confirmed as: [address] [facility] [address] 09/17/2024 Physical Address: [address] [place] [address] , [place] [address] Social & Family Supports: All names listed below confirmed with patient as current and correct Extended Emergency Contact Information Primary Emergency Contact: Don Pollard Mobile Relation: Child Current Care Provided by: self, other (see comments) ([facility] [facility] nursing care team) Provides Primary Care For: no one, unable/limited ability to care for self Caregiver if needed: unable to assess Quality of Family relationships: helpful, involved, supportive (son Don Pollard at bedside) Community Resources being provided currently: clinic(s) ([place] by [facility]) Behavioral Health History: history [...] Other Pertinent/Service Specific Information: patient was at [facility] [place] with similar presentation. Health/Prescription Coverage: Primary Insurance: MEDICARE Payor: MEDICARE / Plan: MEDICARE PART A & B / Product Type: *No Product type* / Secondary Insurance: MEDICAID [place] ONLY if patient has Medicare A&B - Does this patient have secondary insurance?: Yes ; Prescription Coverage: Yes Preferred Pharmacy: [id number] - [place], [place] - [address] [place] [id number] Status: Patient is a : No Primary Care Provider confirmed: Leila Manjarrez [phone] Patient/Caregiver Goals of Treatment: to recover from Right IPH and return home Potential Needs for Transition of Care: home health care, rehabilitation services, outpatient care (home VNA v inpatient therapy) Agency Referrals: Not Applicable at this time; further conversation planned Transportation: no concerns Transportation Anticipated: family or friend will provide, ambulance Concerns to be Addressed: discharge planning Assessment: Patient is admitted to [facility] (pager [phone]) service for large R IPH Plan going forward: DC Plan of Care: met with patient and [...] as indicated. Anupama Pastrana, MSN, RN ACM-RN [facility] golf course patroller * Consult Note - Eri Stovall APRN - 09/17/2024 8:36 AM EDT Images from [...] School: [employer] Has worked many jobs including [employer] ; 1 year Son: Complex Congenital [...] Blood Gas) No results for input(s): PHART, VYI0CEY, PO2ART, PCJ8GNY, LACTATEVEN, HED7MVF, PFRATIOART2 in the last 168 hours. VBG (Venous Blood Gas) No results for input(s): PHVEN, OTU2DYS, PO2VEN, GQD8WMX, LACTATEVEN in the last 168 hours. Mixed Venous Sat No results for input(s): M5YTLU3 in the last 168 hours. Vitals Last [...] % Intake/Output Summary (Last 24 hours) at 09/17/2024835 Last data filed at 09/17/2024 0800 Gross per 24 hour Intake 2774.55 ml Output 1314 ml Net 1460.55 ml Patient Vitals for the past 168 hrs: Weight 09/17/24 06 88.7 kg (195 lb 8.8 oz) 09/16/242207 88.7 kg (195 lb 8.8 oz) 09/16/24 [...] 09/17/24599 Site Signs/Symptoms no swelling;no redness 09/17/24599 PIV 09/16/242210 20 gauge metacarpal vein (top of hand), right (Active) Indication/Daily Review of Necessity fluid therapy intermittent;medication therapy intermittent 09/16/242208 Site Preparation/Maintenance dressing: dry and intact 09/17/24599 Securement site guard in place;catheter stabilization device, secured with 09/16/242208 Patency/Maintenance alcohol impregnated cap applied 09/16/242208 Phlebitis 0-->no symptoms 09/17/24599 Infiltration 0-->no symptoms 09/17/24599 Site Signs/Symptoms no swelling;no redness 09/17/24599 PIV 09/16/242215 20 gauge median cubital vein [...] line leveled/zeroed;system flushed 09/16/242208 Labs: Recent Labs 09/17/24 0039 09/16/24 1707 09/16/24 1029 WBC 23.60* 16.82* 9.46 HGB 12.9 14.2 14.7 HCT 38.5 42.8 45.6 PLATELET 327 269 311 MCV 89.7 90.7 90.5 Recent Labs 09/17/24 0039 09/16/24 1029 NA 141 140 CL 108* 104 CO2 21* 27 K 4.4 4.3 MAGNESIUM 0.73 -- PHOS 2.8 -- CALCIUM 9.1 9.5 BUN 15 17 CREATININE 0.67* 0.68* No results for input(s): PROT, ALBUMIN, AST, ALT, ALKPHOS, BILITOT, BILIDIR in the last 168 hours. Recent Labs 09/17/24 0618 09/17/24 0039 09/16/24 1707 INR 1.0 1.0 1.0 PT 11.7 11.7 11.9 PTT 26 27 26 No results for input(s): CK, TROPONINT, PROBNP in the last 168 hours. Recent Labs 05/06/24 0548 TSH 0.99 Recent Labs 09/17/24 0757 09/17/24 0316 09/16/24 2205 POCGLU 122 167 170 No results for input(s): LDH, HAPTOGLOBIN, URICACID in the last 168 hours. ABG (Arterial Blood Gas) No results for input(s): PHART, IVU5BWB, PO2ART, VWG5QSX, LACTATEVEN, PNP4NVA, PFRATIOART2 in the last 168 hours. VBG (Venous Blood Gas) No results for input(s): PHVEN, PAD1EGZ, PO2VEN, ROU0PKE, LACTATEVEN in the last 168 hours. Mixed Venous Sat No results for input(s): T1AAQL4 in the last 168 hours. Diagnostics: TTE [...] appearance of pericardium. Single atrial septostomy with cttq-wq-grtff flow. See report for additional findings. Medications Scheduled Meds: insulin lispro 1-4 Units Subcutaneous Q4H [facility] polyethylene glycoL (MIRALAX) oral powder 17 g Oral Daily chlorhexidine 15 mL Oral BID famotidine 20 mg Per NG tube BID docusate sodium 100 mg Per NG tube BID And sennosides 17.6 mg Per NG tube BID dilTIAZem 60 mg Per NG tube Q6H [facility] Continuous Infusions: propofoL 20 mcg/kg/min (09/17/24 3282) sodium chloride 0.9% 75 mL/hr (09/17/24 0645) [...] monotherapy prior to ICH) Follow up in [facility] clinic in ~[address] days with [address] or CT scan See addendum for further details and final recommendations. Eri Stovall, MSN, FINISHING FRAME RUNNER-BC, HOG CONFINEMENT SYSTEM MANAGER Structural Heart Pager [phone] 09/17/2024 * Consult Note - Sol Hazel, [...] discuss plan with provider Neurocritical Care Pager #[phone] . Current Nutrition Regimen: Active Orders Diet [...] median cubital vein (antecubital fossa), left 09/16/24 221 -- 1 Drain/Device Site 09/16/24 Right parietal [...] encounter: 88.7 kg (195 lb 8.8 oz). Alden Body Weight (IBW) (kg): 45.45 Wt Readings [...] Operative Note Patient Name: Lucero Bruno : [id number] MR#: [id number] Case Date: 09/16/2024 Surgeon: Surgeons and Role: [...] Espinal MD - 09/16/2024 5:57 PM EDT [facility] Operative Note Patient Name: Lucero Bruno : [id number] MR#: [id number] Case Date: 09/16/2024 Surgeon: Surgeons and Role: [...] 8.1 by 5.0 by 6.7 cm right ugnaspd-bdpumqg-ypyjojjye intraparenchymal hematoma with 10.5 mm midline shift. [...] was completely shaved and pinned in the [place] head frame and secured to the operating [...] then flapped back onto the brain surface. Israelhen covered the dura with 2 large pieces [...] and covered, the patient was removed from [place] head fixation transferred to her ICU bed, [...] Thompson RN - 09/16/2024 5:33 PM EDT [facility] RESPONSE TEAM NOTE Name: Lucero Bruno Age: 74 y.o. 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 Causey Clinical Nurse Occupational Medicine present? Yes Attending Contacted? Yes Time Activated: 16:40 Time Arrived: 16:42 Time at bedside: 1 hr. Indication for Consult: Stroke alert ASSESSMENT Brief 24 hr history: Patient s/p Watchman procedure, developed 10 worst headache of life, CT scan revealed [...] Raya PA - 09/16/2024 5:11 PM EDT [facility] NEUROSURGERY CONSULT NOTE ID: Lucero Bruno 74 [...] 36, prior IPH 04/2024 who [facility] for placement of Watchman with cardiology. She [...] 15) performed by Xiomara Burkett MD at [facility] MAIN OR MEDICATIONS: No current facility-administered medications [...] on file Intimate Partner Violence: Unknown (09/16/2024) IPV Inpatient Questions Prevent Contact with Others: [...] Don, on the phone who lives in [place]. Don stated his mother would want to [...] AM ECHO INPATIENT ADD-ON MH NI Card [facility] 11/10/2024 8:00 AM Clarisse Duke APRN [facility] NEURO [facility] Neurosurgery Pager: [phone] ADRIANA Lindsey 09/16/2024 5:11 PM Clinical Documentation [...] symptoms:: 09/16/24 Time of discovery of symptoms:: 162 Was IV Thrombolytics given?: No Was dysphagia [...] 168 hours. No results for input(s): PHART, VHK7SSB, PO2ART, AOY5GUN in the last 168 hours. No results [...] medically stable Please page Vascular Neurology at #[phone] with any questions. Umm Goodrich MD Neurology, PGY3 Department [place] [address] Neurology Attending Attestation I evaluated [...] Procedure Note: Patient Name: Lucero Bruno : [id number] MR#: [id number] Case Date: 09/16/2024 Kindergartner: Surgeons and Role: Panel 1: * Duane [...] a Transseptal puncture was performed using the [employer] System. A WM TruSteer sheath was tracked across the inter-atrial septum without difficulty. An angled angiographic pig tail catheter (6Fr) was then positioned in the ANGUS through which an angiogram was performed showing anatomy c/w MONICA findings (LA = 12 mmHg). A Watchman FLX-Pro 27 mm ([id number]) was prepped according to the Front Desk Administrator's IFU with special attention to elimante all [...] groggy without apparent complications. Duane Causey MD [facility] fiscal analyst Pager [phone] documented in this encounter Plan of Treatment Upcoming Encounters Date Type Department Care Team (Late st Contact Info) Description 11/04/2024 11:15 AM EST Appointment Non-Invasive Cardiology Lab [place] [address] 11/10/2024 8:00 AM EST Office Visit Neurology at [place] [address] Clarisse Duke APRN [facility] [place] [address] 11/15/2024 10:[address] Scan at [place] [address] Karli Morales MD [facility] [place] [address] 11/15/2024 11:20 AM EST Office Visit Neurosurgery at [place] [address] Marvin Kimball PA [facility] [place] [address] 12/15/2024 4:40 PM EST TH Visit (TeleHealth) Cardiology at [address] Duane Causey MD [facility] [place] [address] Pending Results Name Type Priority Associated Diagnoses [...] 10/11/2024 8:22 PM EST RAPID COVID-19 PCR (MH/APD/NLH) Routine 10/11/2024 4:26 PM EST POC, GLUCOSE [...] 09/23/2024 11:30 AM EDT URINALYSIS BEAKER MICROSCOPIC ([facility]) STAT 09/23/2024 10:29 AM EDT _URINALYSIS WITH [...] PM EDT BLOOD GAS ARTERIAL POC Routine 4 5:[address] HEAD WO CONTRAST (GENERIC) [...] 3:03 PM EDT Atrial fibrillation, unspecified type IMPLANTABLE DEVICES SCAN 09/16/2024 12:00 AM EDT PERQ TRANSCATH CLOSURE LEFT ATRIAL APPENDAGE W ENDOCARD IMPLANT Routine 08/03/2024 12:40 PM EDT Atrial fibrillation, unspecified type documented in this encounter Results * POC, GLUCOSE (10/12/2024 12:23 PM EST) Glucometer, POC 157 65 - 199 mg/dL 10/12/2024 12:23 PM EST [facility] Comment:Supplemental ranges: <140 mg/dL before meals <180 mg/dL all other times of the day. Blood CAPILLARY BLOOD / Unknown 10/12/2024 12:23 PM EST 10/12/2024 12:24 PM EST Karli Morales MD POINT OF CARE TEST O RDERABLES Performing Organization Address City/[facility]/ZIP Co de Phone Number [facility] [place] [address] * POC, GLUCOSE (10/12/2024 11:03 AM EST) Glucometer, POC 188 65 - 199 mg/dL 10/12/2024 11:04 AM EST [facility] Comment:Supplemental ranges: <140 mg/dL before meals <180 mg/dL all other times of the day. 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 Thank you for letting us participate in the care of this patient. ??If you are a health care provider and have any questions regarding this report, please contact the number below. ??For patients who have questions please contact the health cna caregiver that requested your imaging first. ? Narrative [...] patients who have questions please contactthe health cna caregiver that requested your imaging first. Karli Morales MD IMG DX ORDERABLES * POC, GLUCOSE (10/12/2024 9:10 AM EST) Glucometer, POC 149 65 - 199 mg/dL 10/12/2024 9:10 AM EST [facility] Comment:Supplemental ranges: <140 mg/dL before meals <180 mg/dL all other times of the day. Blood CAPILLARY BLOOD / Unknown 10/12/2024 9:10 AM EST 10/12/2024 9:10 AM EST Karli Morales MD POINT OF CARE TEST O RDERAASHLIE Performing Organization Address City/[facility]/ZIP Co de Phone Number [facility] [place] [address] * POC, GLUCOSE (10/12/2024 7:22 AM EST) Glucometer, POC 146 65 - 199 mg/dL 10/12/2024 7:23 AM EST [facility] Comment:Supplemental ranges: <140 mg/dL before meals <180 mg/dL all other times of the day. Blood CAPILLARY BLOOD / Unknown 10/12/2024 7:22 AM EST 10/12/2024 7:23 AM EST Karli Morales MD POINT OF CARE TEST O RDKALE [facility] [place] [address] * POC, GLUCOSE (10/12/2024 2:02 AM EST) Glucometer, POC 167 65 - 199 mg/dL 10/12/2024 2:03 AM EST [facility] Comment:Supplemental ranges: <140 mg/dL before meals <180 mg/dL all other times of the day. Blood CAPILLARY BLOOD / Unknown 10/12/2024 2:02 AM EST 10/12/2024 2:03 AM EST Karli Morales MD POINT OF CARE TEST O RDERABLES Performing Organization Address City/[facility]/ZIP Co de Phone Number [facility] [place] [address] * Phosphorus (10/12/2024 12:04 AM EST) Phosphorus 3.3 2.5 - 4.5 mg/dL 10/12/2024 12:52 AM EST [facility] Blood VENOUS BLOOD SPECIMEN / Unknown Venipuncture / Unknown 10/12/2024 12:04 AM EST 10/12/2024 12:23 AM EST Librado Patel MD CHEMISTRY ORDERABLES Performing Organization Address [facility]/ZIP Co de Phone Number [facility] [place] [address] * Magnesium (10/12/2024 12:04 AM EST) Magnesium 0.74 0.69 - 1.07 mMol/L 10/12/2024 12:52 AM EST [facility] Blood VENOUS BLOOD SPECIMEN / Unknown Venipuncture / Unknown 10/12/2024 12:04 AM EST 10/12/2024 12:23 AM EST Librado Patel MD CHEMISTRY ORDERABLES Performing Organization Address City/[facility]/ZIP Co de Phone Number [facility] [place] [address] * (ABNORMAL) Basic Metabolic Panel (10/12/2024 12:04 AM EST) Glucose 154 65 - 199 mg/dL 10/12/2024 12:52 AM EST [facility] Comment:Glucose Concentratio n >=200 mg/dL plus symptoms is consistent with Diabetes Mellitus. Blood Urea Nitrogen 23(H) 8 - 18 mg/dL 10/12/2024 12:52 AM [facility] Creatinine 0.40(L) 0.70 - 1.20 mg/dL 10/12/2024 12:52 AM [facility] Sodium [...] AM EST Librado Patel MD CHEMISTRY ORDERABLES [facility] [place] [address] * (ABNORMAL) CBC (with Diff) (10/12/2024 12:04 AM EST) [facility] White Blood Cell 9.08 4.00 - 9.50 x10(3)/mc L 10/12/2024 12:27 AM [facility] Red Blood Cell 3.61(L) 4.00 - [...] - 3.20 x10(3)/mc L 10/12/2024 12:27 AM [facility] Monocyte % 8.1 % 10/12/2024 12:27 [...] EST Librado Patel MD HEMATOLOGY ORDERABLE S [facility] [place] [address] * POC, GLUCOSE (10/11/2024 8:22 PM EST) Glucometer, POC 154 65 - 199 mg/dL 10/11/2024 8:22 PM EST [facility] Comment:Supplemental ranges: <140 mg/dL before meals <180 mg/dL all other times of the day. Blood CAPILLARY BLOOD / Unknown 10/11/2024 8:22 PM EST 10/11/2024 8:22 PM EST Karli Morales MD POINT OF CARE TEST O RDERABLES Performing Organization Address City/[facility]/ZIP Co de Phone Number [facility] [place] [address] * COVID-19 PCR (10/11/2024 4:26 PM EST) [facility] SARS-CoV-2 RNA (Rapid) Not Detected Not Detected 10/11/2024 7:04 PM EST [facility] Swab SPECIMEN FROM NASOPHARYNGEAL STRUCTURE / Unknown Non Blood Collection / Unknown 10/11/2024 4:26 PM EST 10/11/2024 4:39 PM EST Karli Morales MD MICROBIOLOGY - GENER AL ORDERABLES Performing Organization Address [facility]/ZIP Co de Phone Number [facility] [place] [address] * POC, GLUCOSE (10/11/2024 4:01 PM EST) Pathologist [facility] Glucometer, POC 156 65 - 199 mg/dL 10/11/2024 4:02 PM EST [facility] Comment:Supplemental ranges: <140 mg/dL before meals <180 mg/dL all other times of the day. Blood CAPILLARY BLOOD / Unknown 10/11/2024 4:01 PM EST 10/11/2024 4:02 PM EST Karli Morales MD POINT OF CARE TEST O RDERABLES Performing Organization Address City/[facility]/ZIP Co de Phone Number [facility] [place] [address] * POC, GLUCOSE (10/11/2024 12:15 PM EST) Glucometer, POC 152 65 - 199 mg/dL 10/11/2024 12:16 PM EST [facility] Comment:Supplemental ranges: <140 mg/dL before meals <180 mg/dL all other times of the day. Blood CAPILLARY BLOOD / Unknown 10/11/2024 12:15 PM EST 10/11/2024 12:16 PM EST Karli Morales MD POINT OF CARE TEST O ALDO [facility] [place] [address] * POC, GLUCOSE (10/11/2024 7:30 AM EST) Glucometer, POC 126 65 - 199 mg/dL 10/11/2024 7:30 AM EST [facility] Comment:Supplemental ranges: <140 mg/dL before meals <180 mg/dL all other times of the day. Blood CAPILLARY BLOOD / Unknown 10/11/2024 7:30 AM EST 10/11/2024 7:30 AM EST Karli Morales MD POINT OF CARE TEST O ALDO [facility] [place] [address] * POC, GLUCOSE (10/11/2024 2:40 AM EST) Glucometer, POC 139 65 - 199 mg/dL 10/11/2024 2:40 AM EST [facility] Comment:Supplemental ranges: <140 mg/dL before meals <180 mg/dL all other times of the day. Blood CAPILLARY BLOOD / Unknown 10/11/2024 2:40 AM EST 10/11/2024 2:41 AM EST Karli Morales MD POINT OF CARE TEST O RDERABLES [facility] [place] [address] * Phosphorus (10/10/2024 11:50 PM EST) Pathologist [facility] Phosphorus 3.0 2.5 - 4.5 mg/dL 10/11/2024 12:44 AM EST [facility] Blood VENOUS BLOOD SPECIMEN / Unknown Venipuncture / Unknown 10/10/2024 11:50 PM EST 10/11/2024 12:07 AM EST Librado Patel MD CHEMISTRY ORDERABLES Performing Organization Address City/[facility]/ZIP Co de Phone Number [facility] [place] [address] * Magnesium (10/10/2024 11:50 PM EST) Pathologist [facility] Magnesium 0.73 0.69 - 1.07 mMol/L 10/11/2024 12:44 AM EST [facility] Blood VENOUS BLOOD SPECIMEN / Unknown Venipuncture / Unknown 10/10/2024 11:50 PM EST 10/11/2024 12:07 AM EST Librado Patel MD CHEMISTRY ORDERABLES Performing Organization Address City/[facility]/ZIP Co de Phone Number [facility] [place] [address] * (ABNORMAL) Basic Metabolic Panel (10/10/2024 11:50 PM EST) Pathologist [facility] Glucose 179 65 - 199 mg/dL 10/11/2024 12:44 AM EST [facility] Comment:Glucose Concentratio n >=200 mg/dL plus symptoms is consistent with Diabetes Mellitus. Blood Urea Nitrogen 21(H) 8 - 18 mg/dL 10/11/2024 12:44 AM EST [facility] Creatinine 0.35(L) 0.70 - 1.20 mg/dL 10/11/2024 12:44 AM EST [facility] Sodium 139 135 - 145 [...] AM EST Librado Patel MD CHEMISTRY ORDERABLES [facility] [place] [address] * (ABNORMAL) CBC (with Diff) (10/10/2024 11:50 PM EST) White Blood Cell 9.97(H) 4.00 - 9.50 x10(3)/mc L 10/11/2024 12:12 AM [facility] Red Blood Cell 3.59(L) 4.00 - 5.21 x10(6)/mc L 10/11/2024 12:12 AM [facility] Hemoglobin 10.9(L) 11.7 - 15.5 g/dL 10/11/2024 12:12 AM [facility] Hematocrit 33.9(L) 35.7 - 45.8 % [...] EST Librado Patel MD HEMATOLOGY ORDERABLE S [facility] [place] [address] * TSH Treasure (10/10/2024 11:50 PM EST) Thyroid Stimulating Hormone 2.14 0.27 - 4.20 mcIU/mL 10/11/2024 12:44 AM [facility] Comment: Reference Interval (mcIU/mL): ?? Females: ? First Trimester: 0.23-3.88 ? Second Trimester: 0.22-3.90 ? Third Trimester: 0.44-4.66 Blood VENOUS BLOOD SPECIMEN / Unknown Venipuncture / Unknown 10/10/2024 11:50 PM EST 10/11/2024 12:07 AM EST Karli Morales MD CHEMISTRY ORDERABLES Performing Organization Address [facility] Co de Phone Number [facility] [place] [address] * POC, GLUCOSE (10/10/2024 8:37 PM EST) Glucometer, POC 182 65 - 199 mg/dL 10/10/2024 8:37 PM EST [facility] Comment:Supplemental ranges: <140 mg/dL before meals <180 mg/dL all other times of the day. Blood CAPILLARY BLOOD / Unknown 10/10/2024 8:37 PM EST 10/10/2024 8:37 PM EST Karli Morales MD POINT OF CARE TEST O RDERABLES Performing Organization Address [facility] de Phone Number [facility] [place] [address] * POC, GLUCOSE (10/10/2024 5:30 PM EST) Glucometer, POC 99 65 - 199 mg/dL 10/10/2024 5:30 PM EST [facility] Comment:Supplemental ranges: <140 mg/dL before meals <180 mg/dL all other times of the day. Blood CAPILLARY BLOOD / Unknown 10/10/2024 5:30 PM EST 10/10/2024 5:30 PM EST Karli Morales MD POINT OF CARE TEST O RDERABLES Performing Organization Address [facility] Co de Phone Number [facility] [place] [address] * POC, GLUCOSE (10/10/2024 12:30 PM EST) Glucometer, POC 169 65 - 199 mg/dL 10/10/2024 12:30 PM EST [facility] Comment:Supplemental ranges: <140 mg/dL before meals <180 mg/dL all other times of the day. Blood CAPILLARY BLOOD / Unknown 10/10/2024 12:30 PM EST 10/10/2024 12:31 PM EST Karli Morales MD POINT OF CARE TEST O ALDO Performing Organization Address City/[facility]/ZIP Co de Phone Number [facility] [place] [address] * POC, GLUCOSE (10/10/2024 8:12 AM EST) Glucometer, POC 136 65 - 199 mg/dL 10/10/2024 8:13 AM EST [facility] Comment:Supplemental ranges: <140 mg/dL before meals <180 mg/dL all other times of the day. Blood CAPILLARY BLOOD / Unknown 10/10/2024 8:12 AM EST 10/10/2024 8:13 AM EST Karli Morales MD POINT OF CARE TEST O ALDO [facility] [place] [address] * POC, GLUCOSE (10/10/2024 3:57 AM EST) Glucometer, POC 126 65 - 199 mg/dL 10/10/2024 3:57 AM EST [facility] Comment:Supplemental ranges: <140 mg/dL before meals <180 mg/dL all other times of the day. Blood CAPILLARY BLOOD / Unknown 10/10/2024 3:57 AM EST 10/10/2024 3:57 AM EST Karli Morales MD POINT OF CARE TEST O RDERABLES [facility] [place] [address] * Phosphorus (10/10/2024 12:44 AM EST) Pathologist [facility] Phosphorus 3.1 2.5 - 4.5 mg/dL 10/10/2024 1:21 AM EST [facility] Blood VENOUS BLOOD SPECIMEN / Unknown Venipuncture / Unknown 10/10/2024 12:44 AM EST 10/10/2024 12:53 AM EST Librado Patel MD CHEMISTRY ORDERABLES Performing Organization Address City/[facility]/ZIP Co de Phone Number [facility] [place] [address] * Magnesium (10/10/2024 12:44 AM EST) Pathologist [facility] Magnesium 0.78 0.69 - 1.07 mMol/L 10/10/2024 1:21 AM EST [facility] Blood VENOUS BLOOD SPECIMEN / Unknown Venipuncture / Unknown 10/10/2024 12:44 AM EST 10/10/2024 12:53 AM EST Librado Patel MD CHEMISTRY ORDERABLES Performing Organization Address City/[facility]/ZIP Co de Phone Number [facility] [place] [address] * (ABNORMAL) Basic Metabolic Panel (10/10/2024 12:44 AM EST) Glucose 195 65 - 199 mg/dL 10/10/2024 1:21 AM EST [facility] Comment:Glucose Concentratio n >=200 mg/dL plus symptoms is consistent with Diabetes Mellitus. Blood Urea Nitrogen 22(H) 8 - 18 mg/dL 10/10/2024 1:21 AM EST [facility] Creatinine 0.34(L) 0.70 - 1.20 mg/dL 10/10/2024 1:21 AM EST [facility] Sodium 138 135 - 145 mMol/L 10/10/2024 1:21 AM EST [facility] Potassium 4.2 3.5 - 5.0 mMol/L 10/10/2024 1:21 AM [facility] Chloride 101 98 - 107 mMol/L 10/10/2024 1:21 AM [facility] Carbon Dioxide 26 22 - 31 mMol/L 10/10/2024 1:21 AM [facility] Anion Gap 11 5 - 15 mMol/L 10/10/2024 1:21 AM [facility] Calcium 9.2 8.5 - 10.5 mg/dL 10/10/2024 1:21 AM [facility] Est Glomerular Filtration Rate - Female 110 mL/min/1. 73 m?? 10/10/2024 1:21 AM [facility] Comment: [...] AM EST Librado Patel MD CHEMISTRY ORDERABLES [facility] [place] [address] * (ABNORMAL) CBC (with Diff) (10/10/2024 12:44 AM EST) White Blood Cell 10.15(H) 4.00 - 9.50 x10(3)/mc L 10/10/2024 12:57 AM [facility] Red Blood Cell 3.71(L) 4.00 - 5.21 x10(6)/mc L 10/10/2024 12:57 AM [facility] Hemoglobin 11.3(L) 11.7 - 15.5 g/dL 10/10/2024 12:57 AM [facility] Hematocrit 34.7(L) 35.7 - 45.8 % [...] EST Librado Patel MD HEMATOLOGY ORDERABLE S [facility] [place] [address] * POC, GLUCOSE (10/09/2024 8:07 PM EST) [facility] Signature Glucometer, POC 159 65 - 199 mg/dL 10/09/2024 8:08 PM [facility] Comment:Supplemental ranges: <140 mg/dL before meals <180 mg/dL all other times of the day. Blood CAPILLARY BLOOD / Unknown 10/09/2024 8:07 PM EST 10/09/2024 8:08 PM EST Karli Morales MD POINT OF CARE TEST O ALDO Performing Organization Address City/[facility]/ZIP Co de Phone Number [facility] [place] [address] * POC, GLUCOSE (10/09/2024 4:39 PM EST) Glucometer, POC 153 65 - 199 mg/dL 10/09/2024 4:39 PM EST [facility] Comment:Supplemental ranges: <140 mg/dL before meals <180 mg/dL all other times of the day. Blood CAPILLARY BLOOD / Unknown 10/09/2024 4:39 PM EST 10/09/2024 4:39 PM EST Karli Morales MD POINT OF CARE TEST O ALDO Performing Organization Address [facility] Co de Phone Number [facility] [place] [address] * POC, GLUCOSE (10/09/2024 11:37 AM EST) Glucometer, POC 162 65 - 199 mg/dL 10/09/2024 11:37 AM EST [facility] Comment:Supplemental ranges: <140 mg/dL before meals <180 mg/dL all other times of the day. Blood CAPILLARY BLOOD / Unknown 10/09/2024 11:37 AM EST 10/09/2024 11:37 AM EST Karli Morales MD POINT OF CARE TEST O ALDO Performing Organization Address City/[facility]/ZIP Co de Phone Number [facility] [place] [address] * (ABNORMAL) Urine culture (10/09/2024 10:43 AM EST) Pathologist [facility] Urine Culture Greater than 50,000 cfu/mL Escherichia coli(A) VITEK 2 METHOD 10/12/2024 8:32 AM [facility] Urine Culture Greater than 50,000 cfu/mL Raoultella ornithinolytica (A) VITEK 2 METHOD 10/12/2024 8:32 AM [facility] Urine [...] - GENER AL ORDERABLES Performing Organization Address City/[facility]/[place] [address] * (ABNORMAL) Urinalysis Microscopic with Reflex to [...] 0 - 5 /HPF 10/09/2024 11:01 AM EST [facility] Hyaline Casts, Urine 1 0 - 2 /LPF 10/09/2024 11:01 AM EST [facility] CULTURE ADDED? Yes 10/09/2024 11:01 AM [facility] Urine URINE SPECIMEN OBTAINED VIA STRAIGHT CATHETER / Unknown Non Blood Collection / Unknown 10/09/2024 10:43 AM EST 10/09/2024 10:49 AM EST Karli Morales MD URINE ORDERABLES Performing Organization Address City/[facility]/ZIP Co de Phone Number [facility] [place] [address] * (ABNORMAL) Urinalysis with reflex Culture (10/09/2024 10:43 AM EST) Glucose, Urine Dipstick Negative Negative 10/09/2024 11:01 AM [facility] Protein, Urine Dipstick Trace(A) Negative 10/09/2024 11:01 AM [facility] Bilirubin, Urine Dipstick Negative Negative 10/09/2024 [...] AM [facility] Specific [place] Urine Automated 1.017 1.005 - 1.030 10/09/2024 [...] Morales MD URINE ORDERABLES Performing Organization Address City/[facility]/ZIP Co de Phone Number [facility] [place] [address] * POC, GLUCOSE (10/09/2024 7:44 AM EST) Glucometer, POC 147 65 - 199 mg/dL 10/09/2024 7:44 AM EST [facility] Comment:Supplemental ranges: <140 mg/dL before meals <180 mg/dL all other times of the day. Blood CAPILLARY BLOOD / Unknown 10/09/2024 7:44 AM EST 10/09/2024 7:44 AM EST Karli Morales MD POINT OF CARE TEST O RDERABLES Performing Organization Address [facility] Co de Phone Number [facility] [place] [address] * POC, GLUCOSE (10/09/2024 1:06 AM EST) Glucometer, POC 149 65 - 199 mg/dL 10/09/2024 1:08 AM EST [facility] Comment:Supplemental ranges: <140 mg/dL before meals <180 mg/dL all other times of the day. Blood CAPILLARY BLOOD / Unknown 10/09/2024 1:06 AM EST 10/09/2024 1:08 AM EST Karli Morales MD POINT OF CARE TEST O RDERAASHLIE Performing Organization Address City/[facility]/ZIP Co de Phone Number [facility] [place] [address] * Phosphorus (10/09/2024 12:59 AM EST) Phosphorus 3.5 2.5 - 4.5 mg/dL 10/09/2024 1:46 AM EST [facility] Blood VENOUS BLOOD SPECIMEN / Unknown Venipuncture / Unknown 10/09/2024 12:59 AM EST 10/09/2024 1:16 AM EST Librado Patel MD CHEMISTRY ORDERABLES [facility] [place] [address] * Magnesium (10/09/2024 12:59 AM EST) Magnesium 0.81 0.69 - 1.07 mMol/L 10/09/2024 1:46 AM EST [facility] Blood VENOUS BLOOD SPECIMEN / Unknown Venipuncture / Unknown 10/09/2024 12:59 AM EST 10/09/2024 1:16 AM EST Librado Patel MD CHEMISTRY ORDERABLES Performing Organization Address City/[facility]/ZIP Co de Phone Number [facility] [place] [address] * (ABNORMAL) Basic Metabolic Panel (10/09/2024 12:59 AM EST) Glucose 159 65 - 199 mg/dL 10/09/2024 [...] 5 - 15 mMol/L 10/09/2024 1:46 AM EST [facility] Calcium 9.5 8.5 - 10.5 [...] AM EST Librado Patel MD CHEMISTRY ORDERABLES [facility] [place] [address] * (ABNORMAL) CBC (with Diff) (10/09/2024 12:59 AM EST) White Blood Cell 12.45(H) 4.00 - 9.50 x10(3)/mc L 10/09/2024 1:27 AM EST [facility] Red Blood Cell 3.42(L) 4.00 [...] - 0.90 x10(3)/mc L 10/09/2024 1:27 AM EST [facility] Eos % 1.8 % 10/09/2024 1:27 AM [facility] Eos Absolute 0.23 0.00 - 0.40 x10(3)/mc L 10/09/2024 1:27 AM [facility] Basophil % 0.2 % 10/09/2024 1:27 AM [facility] Baso Absolute <0.04 0.00 - 0.10 x10(3)/mc L 10/09/2024 1:27 AM [facility] Immature Gran % 0.6 % 1:27 AM [facility] Immature Gran Absolute 0.08(H) 0.00 - 0.04 x10(3)/mc L 10/09/2024 1:27 AM [facility] Blood VENOUS BLOOD SPECIMEN / Unknown Venipuncture / Unknown 10/09/2024 12:59 AM EST 10/09/2024 1:16 AM EST Librado Patel MD HEMATOLOGY ORDERABLE S [facility] [place] [address] * POC, GLUCOSE (10/08/2024 8:35 PM EST) Glucometer, POC 175 65 - 199 mg/dL 10/08/2024 8:35 PM EST [facility] Comment:Supplemental ranges: <140 mg/dL before meals <180 mg/dL all other times of the day. Blood CAPILLARY BLOOD / Unknown 10/08/2024 8:35 PM EST 10/08/2024 8:36 PM EST Karli Morales MD POINT OF CARE TEST O RDERABLES [facility] [place] [address] * POC, GLUCOSE (10/08/2024 4:41 PM EST) Glucometer, POC 177 65 - 199 mg/dL 10/08/2024 4:41 PM EST [facility] Comment:Supplemental ranges: <140 mg/dL before meals <180 mg/dL all other times of the day. Blood CAPILLARY BLOOD / Unknown 10/08/2024 4:41 PM EST 10/08/2024 4:42 PM EST Karli Morales MD POINT OF CARE TEST O RDERABLES [facility] [place] [address] * XR Fluoro Esophagram (Modified/Video Swallow Pharynx) (10/08/2024 4:10 PM EST) WORKSTATION ID [id number] [facility] Anatomical Region Laterality Modality N/A Radio Fluoroscop [...] who have questions please contact the health cna caregiver that requested your imaging first. ? Narrative 10/08/2024 4:49 PM EST EXAMINATION: XR [...] patients who have questions please contactthe health cna caregiver that requested your imaging first. Karli Morales MD IMG FLUORO ORDERABLE S * POC, GLUCOSE (10/08/2024 12:49 PM EST) Glucometer, POC 176 65 - 199 mg/dL 10/08/2024 12:50 PM EST [facility] Comment:Supplemental ranges: <140 mg/dL before meals <180 mg/dL all other times of the day. Blood CAPILLARY BLOOD / Unknown 10/08/2024 12:49 PM EST 10/08/2024 12:50 PM EST Karli Morales MD POINT OF CARE TEST O ALDO Performing Organization Address [facility] Co de Phone Number [facility] [place] [address] * POC, GLUCOSE (10/08/2024 8:26 AM EST) Glucometer, POC 123 65 - 199 mg/dL 10/08/2024 8:26 AM EST [facility] Comment:Supplemental ranges: <140 mg/dL before meals <180 mg/dL all other times of the day. Blood CAPILLARY BLOOD / Unknown 10/08/2024 8:26 AM EST 10/08/2024 8:26 AM EST Karli Morales MD POINT OF CARE TEST O ALDO Performing Organization Address [facility] Co de Phone Number [facility] [place] [address] * POC, GLUCOSE (10/08/2024 4:15 AM EST) Glucometer, POC 135 65 - 199 mg/dL 10/08/2024 4:15 AM EST [facility] Comment:Supplemental ranges: <140 mg/dL before meals <180 mg/dL all other times of the day. Blood CAPILLARY BLOOD / Unknown 10/08/2024 4:15 AM EST 10/08/2024 4:15 AM EST Karli Morales MD POINT OF CARE TEST O ALDO [facility] [place] [address] * Phosphorus (10/08/2024 1:13 AM EST) Pathologist [facility] Phosphorus 3.3 2.5 - 4.5 mg/dL 10/08/2024 2:06 AM [facility] Blood VENOUS BLOOD SPECIMEN / Unknown Venipuncture / Unknown 10/08/2024 1:13 AM EST 10/08/2024 1:34 AM EST Librado Patel MD CHEMISTRY ORDERABLES [facility] [place] [address] * Magnesium (10/08/2024 1:13 AM EST) [facility] Magnesium 0.79 0.69 - 1.07 mMol/L 10/08/2024 2:06 AM [facility] Blood VENOUS BLOOD SPECIMEN / Unknown Venipuncture / Unknown 10/08/2024 1:13 AM EST 10/08/2024 1:34 AM EST Librado Patel MD CHEMISTRY ORDERABLES [facility] [place] [address] * (ABNORMAL) Basic Metabolic Panel (10/08/2024 1:13 AM EST) [facility] Glucose 186 65 - 199 mg/dL 10/08/2024 [...] 135 - 145 mMol/L 10/08/2024 2:06 AM EST [facility] Potassium 4.4 3.5 - 5.0 mMol/L 10/08/2024 2:06 AM [facility] Chloride 104 98 - 107 mMol/L 10/08/2024 2:06 AM [facility] Carbon Dioxide 27 22 - 31 mMol/L 10/08/2024 2:06 AM [facility] Anion Gap 7 5 - 15 mMol/L 10/08/2024 2:06 AM [facility] Calcium 8.9 8.5 - 10.5 mg/dL 10/08/2024 2:06 AM [facility] Est Glomerular Filtration Rate - Female 106 mL/min/1. 73 m?? 10/08/2024 2:06 AM [facility] Comment: [...] AM EST Librado Patel MD CHEMISTRY ORDERABLES [facility] [place] [address] * (ABNORMAL) CBC (with Diff) (10/08/2024 1:13 AM EST) White Blood Cell 11.43(H) 4.00 - 9.50 x10(3)/mc L 10/08/2024 1:39 AM EST [facility] Red Blood Cell 3.30(L) 4.00 - 5.21 x10(6)/mc L 10/08/2024 1:39 AM [facility] Hemoglobin 10.0(L) 11.7 - 15.5 g/dL 10/08/2024 1:39 AM [facility] Hematocrit 31.2(L) 35.7 - 45.8 % [...] - 0.90 x10(3)/mc L 10/08/2024 1:39 AM [facility] Eos % 2.7 % 10/08/2024 1:39 AM [facility] Eos Absolute 0.31 0.00 - 0.40 x10(3)/mc L 10/08/2024 1:39 AM [facility] Basophil % 0.1 % 10/08/2024 1:39 [...] EST Librado Patel MD HEMATOLOGY ORDERABLE S [facility] [place] [address] * POC, GLUCOSE (10/08/2024 1:07 AM EST) [facility] Signature Glucometer, POC 171 65 - 199 mg/dL 10/08/2024 1:07 AM [facility] Comment:Supplemental ranges: <140 mg/dL before meals <180 mg/dL all other times of the day. Blood CAPILLARY BLOOD / Unknown 10/08/2024 1:07 AM EST 10/08/2024 1:07 AM EST Karli Morales MD POINT OF CARE TEST O ALDO Performing Organization Address [facility] Co de Phone Number [facility] [place] [address] * POC, GLUCOSE (10/07/2024 8:55 PM EST) Glucometer, POC 114 65 - 199 mg/dL 10/07/2024 8:55 PM EST [facility] Comment:Supplemental ranges: <140 mg/dL before meals <180 mg/dL all other times of the day. Blood CAPILLARY BLOOD / Unknown 10/07/2024 8:55 PM EST 10/07/2024 8:56 PM EST Karli Morales MD POINT OF CARE TEST O ALDO Performing Organization Address [facility] Co de Phone Number [facility] [place] [address] * POC, GLUCOSE (10/07/2024 4:29 PM EST) Glucometer, POC 178 65 - 199 mg/dL 10/07/2024 4:29 PM EST [facility] Comment:Supplemental ranges: <140 mg/dL before meals <180 mg/dL all other times of the day. Blood CAPILLARY BLOOD / Unknown 10/07/2024 4:29 PM EST 10/07/2024 4:29 PM EST Karli Morales MD POINT OF CARE TEST O ALDO Performing Organization Address [facility] Co de Phone Number [facility] [place] [address] * CT Head wo Contrast (Generic) (10/07/2024 3:25 PM EST) WORKSTATION ID [id number] RAD Anatomical Region Laterality Modality Head Computed [...] who have questions please contact the health cna caregiver that requested your imaging first. ? Narrative [...] patients who have questions please contactthe health cna caregiver that requested your imaging first. Karli Morales MD IMG CT ORDERABLES * POC, GLUCOSE (10/07/2024 11:30 AM EST) [facility] Glucometer, POC 169 65 - 199 mg/dL 10/07/2024 11:30 AM EST [facility] Comment:Supplemental ranges: <140 mg/dL before meals <180 mg/dL all other times of the day. Blood CAPILLARY BLOOD / Unknown 10/07/2024 11:30 AM EST 10/07/2024 11:30 AM EST Karli Morales MD POINT OF CARE TEST O RDERAASHLIE [facility] [place] [address] * POC, GLUCOSE (10/07/2024 8:42 AM EST) Glucometer, POC 166 65 - 199 mg/dL 10/07/2024 8:42 AM EST [facility] Comment:Supplemental ranges: <140 mg/dL before meals <180 mg/dL all other times of the day. Blood CAPILLARY BLOOD / Unknown 10/07/2024 8:42 AM EST 10/07/2024 8:42 AM EST Karli Morales MD POINT OF CARE TEST O ALDO Performing Organization Address City/[facility]/ZIP Co de Phone Number [facility] [place] [address] * POC, GLUCOSE (10/07/2024 4:17 AM EST) Glucometer, POC 175 65 - 199 mg/dL 10/07/2024 4:17 AM EST [facility] Comment:Supplemental ranges: <140 mg/dL before meals <180 mg/dL all other times of the day. Blood CAPILLARY BLOOD / Unknown 10/07/2024 4:17 AM EST 10/07/2024 4:17 AM EST Karli Morales MD POINT OF CARE TEST O ASHLEYERAASHLIE [facility] [place] [address] * Phosphorus (10/07/2024 1:12 AM EST) Phosphorus 2.6 2.5 - 4.5 mg/dL 10/07/2024 1:58 AM EST [facility] Blood VENOUS BLOOD SPECIMEN / Unknown Venipuncture / Unknown 10/07/2024 1:12 AM EST 10/07/2024 1:32 AM EST Librado Patel MD CHEMISTRY ORDERABLES Performing Organization Address [facility] Co de Phone Number [facility] [place] [address] * Magnesium (10/07/2024 1:12 AM EST) [facility] Magnesium 0.72 0.69 - 1.07 mMol/L 10/07/2024 1:58 AM [facility] Blood VENOUS BLOOD SPECIMEN / Unknown Venipuncture / Unknown 10/07/2024 1:12 AM EST 10/07/2024 1:32 AM EST Librado Patel MD CHEMISTRY ORDERABLES Performing Organization Address City/[facility] Co de Phone Number [facility] [place] [address] * (ABNORMAL) Basic Metabolic Panel (10/07/2024 1:12 AM EST) [facility] Glucose 190 65 - 199 mg/dL 10/07/2024 [...] 98 - 107 mMol/L 10/07/2024 1:58 AM EST [facility] Carbon Dioxide 27 22 - 31 mMol/L 10/07/2024 1:58 AM EST [facility] Anion Gap 9 5 - 15 mMol/L 10/07/2024 1:58 AM EST [facility] Calcium 9.0 8.5 - 10.5 mg/dL 10/07/2024 1:58 AM EST [facility] Est Glomerular Filtration Rate - Female 108 mL/min/1. 73 m?? 10/07/2024 1:58 AM EST [facility] Comment: This patient's estimated GFR [...] Patel MD CHEMISTRY ORDERABLES Performing Organization Address City/State/[facility] Co de Phone Number [facility] [place] [address] * (ABNORMAL) CBC (with Diff) (10/07/2024 1:12 AM EST) White Blood Cell 15.48(H) 4.00 - 9.50 x10(3)/mc L 10/07/2024 1:36 AM EST [facility] Red Blood Cell 3.49(L) 4.00 - 5.21 x10(6)/mc L 10/07/2024 1:36 AM EST [facility] Hemoglobin 10.7(L) 11.7 - 15.5 [...] Monocyte % 5.0 % 10/07/2024 1:36 AM EST [facility] Monocyte Absolute 0.78 0.30 - 0.90 x10(3)/mc L 10/07/2024 1:36 AM [facility] Eos % 1.1 % 10/07/2024 1:36 AM [facility] Eos Absolute 0.17 0.00 - 0.40 x10(3)/mc L 10/07/2024 1:36 AM EST [facility] Basophil % 0.1 % 10/07/2024 1:36 AM [facility] Baso Absolute <0.04 0.00 - 0.10 x10(3)/mc L 10/07/2024 1:36 AM [facility] Immature Gran % 0.5 % 1:36 AM [facility] Immature Gran Absolute 0.07(H) 0.00 - 0.04 x10(3)/mc L 10/07/2024 1:36 AM [facility] Blood VENOUS BLOOD SPECIMEN / Unknown Venipuncture / Unknown 10/07/2024 1:12 AM EST 10/07/2024 1:32 AM EST Librado Patel MD HEMATOLOGY ORDERABLE S [facility] [place] [address] * POC, GLUCOSE (10/07/2024 1:00 AM EST) Glucometer, POC 177 65 - 199 mg/dL 10/07/2024 1:00 AM [facility] Comment:Supplemental ranges: <140 mg/dL before meals <180 mg/dL all other times of the day. Blood CAPILLARY BLOOD / Unknown 10/07/2024 1:00 AM EST 10/07/2024 1:00 AM EST Karli Morales MD POINT OF CARE TEST O RDERAASHLIE Performing Organization Address [facility] Co de Phone Number [facility] [place] [address] * POC, GLUCOSE (10/06/2024 8:40 PM EST) Glucometer, POC 163 65 - 199 mg/dL 10/06/2024 8:40 PM EST [facility] Comment:Supplemental ranges: <140 mg/dL before meals <180 mg/dL all other times of the day. Blood CAPILLARY BLOOD / Unknown 10/06/2024 8:40 PM EST 10/06/2024 8:40 PM EST Karli Morales MD POINT OF CARE TEST O ALDO Performing Organization Address [facility] Co de Phone Number [facility] [place] [address] * POC, GLUCOSE (10/06/2024 4:20 PM EST) Glucometer, POC 175 65 - 199 mg/dL 10/06/2024 4:20 PM EST [facility] Comment:Supplemental ranges: <140 mg/dL before meals <180 mg/dL all other times of the day. Blood CAPILLARY BLOOD / Unknown 10/06/2024 4:20 PM EST 10/06/2024 4:21 PM EST Karli Morales MD POINT OF CARE TEST O ALDO Performing Organization Address [facility] Co de Phone Number [facility] [place] [address] * (ABNORMAL) Troponin-T, High Sensitivity 1 Hour (10/06/2024 12:41 PM EST) Troponin-T, High Sensitivity 18(H) <=14 ng/L 10/06/2024 1:28 PM EST [facility] Comment: This patient's troponin T concentration [...] troponin value can be found in the [facility] Test Catalog Troponin - https://[email or web address]-.testcatalog.org/catalogs/565/[email or web address]/36849 Reference: Fourth [place] Definition of Myocardial Infarction. Journal of the [place] [employer] 2018;72:3993-8864 Troponin-T, HS 1 hr delta 3 ng/L 10/06/2024 1:28 PM EST [facility] Comment:The 1 hour Troponin T delta value is the absolute difference between the Troponin T concentrations of the initial and subsequent sample collected between 45 - 120 minutes following the initial collection. Blood VENOUS BLOOD SPECIMEN / Unknown Venipuncture / Unknown 10/06/2024 12:41 PM EST 10/06/2024 12:55 PM EST Karli Morales MD CHEMISTRY ORDERABLES [facility] [place] [address] * POC, GLUCOSE (10/06/2024 12:24 PM EST) [facility] Signature Glucometer, POC 155 65 - 199 mg/dL 10/06/2024 12:24 PM EST [facility] Comment:Supplemental ranges: <140 mg/dL before meals <180 mg/dL all other times of the day. Blood CAPILLARY BLOOD / Unknown 10/06/2024 12:24 PM EST 10/06/2024 12:24 PM EST Karli Morales MD POINT OF CARE TEST O RDERABLES Performing Organization Address City/[facility]/ZIP Co de Phone Number [facility] [place] [address] * (ABNORMAL) Troponin-T, High Sensitivity (10/06/2024 11:13 AM EST) Troponin-T, High Sensitivity Initial 21(H) <=14 ng/L 10/06/2024 11:53 AM EST [facility] Comment: This patient's troponin T concentration [...] troponin value can be found in the [facility] Laboratory Test Catalog Troponin - [email or web address]/[email or web address] Reference: Fourth [place] Definition of Myocardial Infarction. Journal of the [place] [employer] 2018;72:0951-4773 Blood VENOUS BLOOD SPECIMEN / Unknown Venipuncture / Unknown 10/06/2024 11:13 AM EST 10/06/2024 11:17 AM EST Karli Morales MD CHEMISTRY ORDERABLES Performing Organization Address City/[facility]/ZIP [place] [address] * XR Chest One View (10/06/2024 10:59 AM EST) WORKSTATION ID [id number] RAD Anatomical Region Laterality Modality Chest N/A [...] who have questions please contact the health cna caregiver that requested your imaging first. ? Narrative [...] patients who have questions please contactthe health cna caregiver that requested your imaging first. Karli Morales MD IMG DX ORDERABLES * POC, GLUCOSE (10/06/2024 8:42 AM EST) [facility] Signature Glucometer, POC 169 65 - 199 mg/dL 10/06/2024 8:42 AM EST [facility] Comment:Supplemental ranges: <140 mg/dL before meals <180 mg/dL all other times of the day. Blood CAPILLARY BLOOD / Unknown 10/06/2024 8:42 AM EST 10/06/2024 8:42 AM EST Gissell Velazco MD POINT OF CARE TEST ORDERABLES [facility] [place] [address] * POC, GLUCOSE (10/06/2024 7:34 AM EST) Glucometer, POC 175 65 - 199 mg/dL 10/06/2024 7:34 AM EST [facility] Comment:Supplemental ranges: <140 mg/dL before meals <180 mg/dL all other times of the day. Blood CAPILLARY BLOOD / Unknown 10/06/2024 7:34 AM EST 10/06/2024 7:34 AM EST Gissell Velazco MD POINT OF CARE TEST ORDERABLES Performing Organization Address [facility] Co de Phone Number [facility] [place] [address] * POC, GLUCOSE (10/06/2024 4:33 AM EST) Glucometer, POC 147 65 - 199 mg/dL 10/06/2024 4:33 AM EST [facility] Comment:Supplemental ranges: <140 mg/dL before meals <180 mg/dL all other times of the day. Blood CAPILLARY BLOOD / Unknown 10/06/2024 4:33 AM EST 10/06/2024 4:34 AM EST Gissell Velazco MD POINT OF CARE TEST ORDERABLES Performing Organization Address [facility] Co de Phone Number [facility] [place] [address] * POC, GLUCOSE (10/06/2024 3:55 AM EST) Glucometer, POC 149 65 - 199 mg/dL 10/06/2024 3:56 AM EST [facility] Comment:Supplemental ranges: <140 mg/dL before meals <180 mg/dL all other times of the day. Blood CAPILLARY BLOOD / Unknown 10/06/2024 3:55 AM EST 10/06/2024 3:56 AM EST Gissell Velazco MD POINT OF CARE TEST ORDERABLES Performing Organization Address City/State/[facility] Co de Phone Number [facility] [place] [address] * Phosphorus (10/06/2024 12:33 AM EST) Pathologist [facility] Phosphorus 2.5 2.5 - 4.5 mg/dL 10/06/2024 12:56 AM EST [facility] Blood VENOUS BLOOD SPECIMEN / Unknown Venipuncture / Unknown 10/06/2024 12:33 AM EST 10/06/2024 12:37 AM EST Librado Patel MD CHEMISTRY ORDERABLES [facility] [place] [address] * Magnesium (10/06/2024 12:33 AM EST) [facility] Magnesium 0.73 0.69 - 1.07 mMol/L 10/06/2024 12:56 AM [facility] Blood VENOUS BLOOD SPECIMEN / Unknown Venipuncture / Unknown 10/06/2024 12:33 AM EST 10/06/2024 12:37 AM EST Librado Patel MD CHEMISTRY ORDERABLES [facility] [place] [address] * (ABNORMAL) Basic Metabolic Panel (10/06/2024 12:33 AM EST) Pathologist [facility] Glucose 211(H) 65 - 199 mg/dL 10/06/2024 12:56 AM EST [facility] Comment:Glucose Concentratio n >=200 mg/dL plus symptoms is consistent with Diabetes Mellitus. Blood Urea Nitrogen 21(H) 8 - 18 mg/dL 10/06/2024 12:56 AM EST [facility] Creatinine 0.45(L) 0.70 - 1.20 mg/dL 10/06/2024 12:56 AM EST [facility] Sodium 138 135 - 145 mMol/L 10/06/2024 12:56 AM [facility] Potassium 4.3 3.5 - 5.0 mMol/L 10/06/2024 12:56 AM [facility] Chloride 101 98 - 107 mMol/L 10/06/2024 12:56 AM [facility] Carbon Dioxide 26 22 - 31 mMol/L 10/06/2024 12:56 AM [facility] Anion Gap 11 5 - 15 mMol/L 10/06/2024 12:56 AM [facility] Calcium 9.0 8.5 - 10.5 mg/dL 10/06/2024 12:56 AM [facility] Est Glomerular Filtration Rate - Female 102 mL/min/1. 73 m?? 10/06/2024 12:56 AM [facility] Comment: [...] AM EST Librado Patel MD CHEMISTRY ORDERABLES [facility] [place] [address] * (ABNORMAL) CBC (with Diff) (10/06/2024 12:33 AM EST) White Blood Cell 16.59(H) 4.00 - 9.50 x10(3)/mc L 10/06/2024 12:42 AM EST [facility] Red Blood Cell 3.51(L) 4.00 - 5.21 x10(6)/mc L 10/06/2024 12:42 AM [facility] Hemoglobin 10.8(L) 11.7 - 15.5 g/dL 10/06/2024 12:42 AM [facility] Hematocrit 32.9(L) 35.7 - 45.8 % [...] Lymph % 6.5 % 10/06/2024 12:42 AM EST [facility] Lymph Absolute 1.08 0.90 - 3.20 x10(3)/mc L 10/06/2024 12:42 AM [facility] Monocyte % 5.0 % 10/06/2024 12:42 AM [facility] Monocyte Absolute 0.83 0.30 - 0.90 x10(3)/mc L 10/06/2024 12:42 AM [facility] Eos % 1.0 % 10/06/2024 12:42 AM [facility] Eos Absolute 0.16 0.00 - 0.40 x10(3)/mc L 10/06/2024 12:42 AM [facility] Basophil % 0.1 % 10/06/2024 12:42 [...] EST Librado Patel MD HEMATOLOGY ORDERABLE S [facility] [place] [address] * (ABNORMAL) POC, GLUCOSE (10/06/2024 12:14 AM EST) Glucometer, POC 200(H) 65 - 199 mg/dL 10/06/2024 12:15 AM EST [facility] Comment:Supplemental ranges: <140 mg/dL before meals <180 mg/dL all other times of the day. Blood CAPILLARY BLOOD / Unknown 10/06/2024 12:14 AM EST 10/06/2024 12:15 AM EST Gissell Velazco MD POINT OF CARE TEST ORDERABLES [facility] [place] [address] * POC, GLUCOSE (10/05/2024 8:33 PM EST) Glucometer, POC 129 65 - 199 mg/dL 10/05/2024 8:33 PM EST [facility] Comment:Supplemental ranges: <140 mg/dL before meals <180 mg/dL all other times of the day. Blood CAPILLARY BLOOD / Unknown 10/05/2024 8:33 PM EST 10/05/2024 8:34 PM EST Gissell Velazco MD POINT OF CARE TEST ORDERABLES Performing Organization Address City/[facility]/ZIP Co de Phone Number [facility] [place] [address] * POC, GLUCOSE (10/05/2024 4:59 PM EST) Glucometer, POC 185 65 - 199 mg/dL 10/05/2024 4:59 PM EST [facility] Comment:Supplemental ranges: <140 mg/dL before meals <180 mg/dL all other times of the day. Blood CAPILLARY BLOOD / Unknown 10/05/2024 4:59 PM EST 10/05/2024 5:00 PM EST Gissell Velazco MD POINT OF CARE TEST ORDERABLES [facility] [place] [address] * POC, GLUCOSE (10/05/2024 12:40 PM EST) Glucometer, POC 137 65 - 199 mg/dL 10/05/2024 12:40 PM EST [facility] Comment:Supplemental ranges: <140 mg/dL before meals <180 mg/dL all other times of the day. Blood CAPILLARY BLOOD / Unknown 10/05/2024 12:40 PM EST 10/05/2024 12:40 PM EST Gissell Velazco MD POINT OF CARE TEST ORDERABLES Performing Organization Address City/[facility]/ZIP Co de Phone Number [facility] [place] [address] * POC, GLUCOSE (10/05/2024 8:53 AM EST) Glucometer, POC 160 65 - 199 mg/dL 10/05/2024 8:53 AM EST [facility] Comment:Supplemental ranges: <140 mg/dL before meals <180 mg/dL all other times of the day. Blood CAPILLARY BLOOD / Unknown 10/05/2024 8:53 AM EST 10/05/2024 8:54 AM EST Gissell Velazco MD POINT OF CARE TEST ORDERABLES Performing Organization Address City/[facility] Co de Phone Number [facility] [place] [address] * POC, GLUCOSE (10/05/2024 4:11 AM EST) Glucometer, POC 181 65 - 199 mg/dL 10/05/2024 4:12 AM EST [facility] Comment:Supplemental ranges: <140 mg/dL before meals <180 mg/dL all other times of the day. Blood CAPILLARY BLOOD / Unknown 10/05/2024 4:11 AM EST 10/05/2024 4:12 AM EST Gissell Velazco MD POINT OF CARE TEST ORDERABLES Performing Organization Address City/[facility]/ZIP Co de Phone Number [facility] [place] [address] * Sedimentation rate (10/05/2024 12:08 AM EST) Sedimentation Rate Automated 40 3 - 46 mm/hr 10/05/2024 6:34 AM EST [facility] Blood VENOUS BLOOD SPECIMEN / Unknown Venipuncture / Unknown 10/05/2024 12:08 AM EST 10/05/2024 12:17 AM EST Gissell Velazco MD HEMATOLOGY ORDERAB LES [facility] [place] [address] * (ABNORMAL) CRP, acute inflammation (10/05/2024 12:08 AM EST) [facility] C-Reactive Protein 8.6(H) <=4.9 mg/L 10/05/2024 6:11 AM EST [facility] Blood VENOUS BLOOD SPECIMEN / Unknown Venipuncture / Unknown 10/05/2024 12:08 AM EST 10/05/2024 12:17 AM EST Gissell Velazco MD CHEMISTRY ORDERABL ES Performing Organization Address [facility] Co de Phone Number [facility] [place] [address] * Phosphorus (10/05/2024 12:08 AM EST) Pathologist [facility] Phosphorus 4.1 2.5 - 4.5 mg/dL 10/05/2024 12:46 AM EST [facility] Blood VENOUS BLOOD SPECIMEN / Unknown Venipuncture / Unknown 10/05/2024 12:08 AM EST 10/05/2024 12:17 AM EST Librado Patel MD CHEMISTRY ORDERABLES Performing Organization Address City/[facility]/ZIP Co de Phone Number [facility] [place] [address] * Magnesium (10/05/2024 12:08 AM EST) Magnesium 0.85 0.69 - 1.07 mMol/L 10/05/2024 12:46 AM [facility] Blood VENOUS BLOOD SPECIMEN / Unknown Venipuncture / Unknown 10/05/2024 12:08 AM EST 10/05/2024 12:17 AM EST Librado Patel MD CHEMISTRY ORDERABLES [facility] [place] [address] * (ABNORMAL) Basic Metabolic Panel (10/05/2024 12:08 [...] AM EST Librado Patel MD CHEMISTRY ORDERABLES [facility] [place] [address] * (ABNORMAL) CBC (with Diff) (10/05/2024 12:08 [...] 35.7 - 45.8 % 10/05/2024 12:35 AM EST [facility] Mean Cell Volume 94.4 82.6 [...] - 0.10 x10(3)/mc L 10/05/2024 12:35 AM EST [facility] Immature Gran % 0.7 % 12:35 AM EST [facility] Immature Gran Absolute 0.09(H) 0.00 - 0.04 x10(3)/mc L 10/05/2024 12:35 AM EST [facility] Blood VENOUS BLOOD SPECIMEN / Unknown Venipuncture / Unknown 10/05/2024 12:08 AM EST 10/05/2024 12:17 AM EST Librado Patel MD HEMATOLOGY ORDERABLE S [facility] [place] [address] * POC, GLUCOSE (10/04/2024 11:47 PM EST) Glucometer, POC 127 65 - 199 mg/dL 10/04/2024 11:47 PM EST [facility] Comment:Supplemental ranges: <140 mg/dL before meals <180 mg/dL all other times of the day. Blood CAPILLARY BLOOD / Unknown 10/04/2024 11:47 PM EST 10/04/2024 11:47 PM EST Gissell Velazco MD POINT OF CARE TEST ORDERABLES [facility] [place] [address] * MRI Brain wwo Contrast (Generic) (10/04/2024 10:30 PM EST) WORKSTATION ID [id number] RAD Anatomical Region Laterality Modality Head Magnetic [...] who have questions please contact the health cna caregiver that requested your imaging first. ? Narrative [...] patients who have questions please contactthe health cna caregiver that requested your imaging first. Gissell Velazco MD [facility] MRI ORDERABLES * POC, GLUCOSE (10/04/2024 7:31 PM EST) Glucometer, POC 119 65 - 199 mg/dL 10/04/2024 7:31 PM EST [facility] Comment:Supplemental ranges: <140 mg/dL before meals <180 mg/dL all other times of the day. Blood CAPILLARY BLOOD / Unknown 10/04/2024 7:31 PM EST 10/04/2024 7:31 PM EST Gissell Velazco MD POINT OF CARE TEST ORDERABLES [facility] [place] [address] * POC, GLUCOSE (10/04/2024 4:53 PM EST) Glucometer, POC 119 65 - 199 mg/dL 10/04/2024 4:54 PM EST [facility] Comment:Supplemental ranges: <140 mg/dL before meals <180 mg/dL all other times of the day. Blood CAPILLARY BLOOD / Unknown 10/04/2024 4:53 PM EST 10/04/2024 4:54 PM EST Narrative Authorizing Provider Result Duke Velazco MD POINT OF CARE TEST ORDERABLES [facility] [place] [address] * IR G-Tube Placement (10/04/2024 1:00 PM [...] - 199 mg/dL 10/04/2024 8:12 AM EST [facility] Comment:Supplemental ranges: <140 mg/dL before meals <180 mg/dL all other times of the day. Blood CAPILLARY BLOOD / Unknown 10/04/2024 8:12 AM EST 10/04/2024 8:12 AM EST Gissell Velazco MD POINT OF CARE TEST ORDERABLES Performing Organization Address City/[facility]/ZIP Co de Phone Number [facility] [place] [address] * POC, GLUCOSE (10/04/2024 3:59 AM EST) Glucometer, POC 102 65 - 199 mg/dL 10/04/2024 3:59 AM EST [facility] Comment:Supplemental ranges: <140 mg/dL before meals <180 mg/dL all other times of the day. Blood CAPILLARY BLOOD / Unknown 10/04/2024 3:59 AM EST 10/04/2024 3:59 AM EST Gissell Velazco MD POINT OF CARE TEST ORDERABLES [facility] [place] [address] * CT Head wo Contrast (Generic) (10/04/2024 1:40 AM EST) WORKSTATION ID [id number] [facility] Anatomical Region Laterality Modality Head Computed Tomogra [...] who have questions please contact the health cna caregiver that requested your imaging first. ? Narrative 10/04/2024 2:12 AM EST EXAMINATION: CT [...] patients who have questions please contactthe health cna caregiver that requested your imaging first. Gissell Velazco MD IMG CT ORDERABLES * Phosphorus (10/04/2024 12:29 AM EST) Phosphorus 2.6 2.5 - 4.5 mg/dL 10/04/2024 1:03 AM EST [facility] Blood VENOUS BLOOD SPECIMEN / Unknown Venipuncture / Unknown 10/04/2024 12:29 AM EST 10/04/2024 12:35 AM EST Librado Patel MD CHEMISTRY ORDERABLES [facility] [place] [address] * Magnesium (10/04/2024 12:29 AM EST) Pathologist [facility] Magnesium 0.80 0.69 - 1.07 mMol/L 10/04/2024 1:03 AM EST [facility] Blood VENOUS BLOOD SPECIMEN / Unknown Venipuncture / Unknown 10/04/2024 12:29 AM EST 10/04/2024 12:35 AM EST Librado Patel MD CHEMISTRY ORDERABLES [facility] [place] [address] * (ABNORMAL) Basic Metabolic Panel (10/04/2024 12:29 AM EST) Glucose 166 65 - 199 mg/dL 10/04/2024 1:03 AM EST [facility] Comment:Glucose Concentratio n >=200 mg/dL plus symptoms is consistent with Diabetes Mellitus. Blood Urea Nitrogen 24(H) 8 - 18 mg/dL 10/04/2024 1:03 AM EST [facility] Creatinine 0.36(L) 0.70 - 1.20 mg/dL 10/04/2024 1:03 AM EST [facility] Sodium 142 135 - 145 [...] AM EST Librado Patel MD CHEMISTRY ORDERABLES [facility] [place] [address] * (ABNORMAL) CBC (with Diff) (10/04/2024 12:29 [...] Monocyte % 6.1 % 10/04/2024 12:40 AM [facility] Monocyte Absolute 0.89 0.30 - 0.90 x10(3)/mc L 10/04/2024 12:40 AM [facility] Eos % 1.3 % 10/04/2024 12:40 AM [facility] Eos Absolute 0.19 0.00 - 0.40 x10(3)/mc L 10/04/2024 12:40 AM [facility] Basophil % 0.1 % 10/04/2024 12:40 [...] EST Librado Patel MD HEMATOLOGY ORDERABLE S [facility] [place] [address] * POC, GLUCOSE (10/04/2024 12:06 AM EST) Glucometer, POC 158 65 - 199 mg/dL 10/04/2024 12:06 AM [facility] Comment:Supplemental ranges: <140 mg/dL before meals <180 mg/dL all other times of the day. Blood CAPILLARY BLOOD / Unknown 10/04/2024 12:06 AM EST 10/04/2024 12:06 AM EST Gissell Velazco MD POINT OF CARE TEST ORDERABLES [facility] [place] [address] * POC, GLUCOSE (10/03/2024 7:47 PM EST) Glucometer, POC 180 65 - 199 mg/dL 10/03/2024 7:48 PM EST [facility] Comment:Supplemental ranges: <140 mg/dL before meals <180 mg/dL all other times of the day. Blood CAPILLARY BLOOD / Unknown 10/03/2024 7:47 PM EST 10/03/2024 7:48 PM EST Gissell Velazco MD POINT OF CARE TEST ORDERABLES [facility] [place] [address] * POC, GLUCOSE (10/03/2024 3:49 PM EST) Glucometer, POC 157 65 - 199 mg/dL 10/03/2024 3:50 PM EST [facility] Comment:Supplemental ranges: <140 mg/dL before meals <180 mg/dL all other times of the day. Blood CAPILLARY BLOOD / Unknown 10/03/2024 3:49 PM EST 10/03/2024 3:50 PM EST Gissell Velazco MD POINT OF CARE TEST ORDERABLES [facility] [place] [address] * POC, GLUCOSE (10/03/2024 11:24 AM EST) Glucometer, POC 149 65 - 199 mg/dL 10/03/2024 11:24 AM EST [facility] Comment:Supplemental ranges: <140 mg/dL before meals <180 mg/dL all other times of the day. Blood CAPILLARY BLOOD / Unknown 10/03/2024 11:24 AM EST 10/03/2024 11:25 AM EST Gissell Velazco MD POINT OF CARE TEST ORDERABLES [facility] [place] [address] * POC, GLUCOSE (10/03/2024 8:00 AM EST) Glucometer, POC 141 65 - 199 mg/dL 10/03/2024 8:00 AM EST [facility] Comment:Supplemental ranges: <140 mg/dL before meals <180 mg/dL all other times of the day. Blood CAPILLARY BLOOD / Unknown 10/03/2024 8:00 AM EST 10/03/2024 8:01 AM EST Gissell Velazco MD POINT OF CARE TEST ORDERABLES [facility] [place] [address] * Phosphorus (10/03/2024 4:05 AM EST) Phosphorus 2.7 2.5 - 4.5 mg/dL 10/03/2024 4:53 AM EST [facility] Blood VENOUS BLOOD SPECIMEN / Unknown Venipuncture / Unknown 10/03/2024 4:05 AM EST 10/03/2024 4:26 AM EST Librado Patel MD CHEMISTRY ORDERABLES [facility] [place] [address] * Magnesium (10/03/2024 4:05 AM EST) Magnesium 0.88 0.69 - 1.07 mMol/L 10/03/2024 4:53 AM EST [facility] Blood VENOUS BLOOD SPECIMEN / Unknown Venipuncture / Unknown 10/03/2024 4:05 AM EST 10/03/2024 4:26 AM EST Librado Patel MD CHEMISTRY ORDERABLES [facility] [place] [address] * (ABNORMAL) Basic Metabolic Panel (10/03/2024 4:05 AM EST) Glucose 199 65 - 199 mg/dL 10/03/2024 4:53 AM [facility] Comment:Glucose Concentratio n >=200 mg/dL plus symptoms is consistent with Diabetes Mellitus. Blood Urea Nitrogen 22(H) 8 - 18 mg/dL 10/03/2024 4:53 AM [facility] Creatinine 0.35(L) 0.70 - 1.20 mg/dL 10/03/2024 4:53 AM EST [facility] Sodium 146(H) 135 - 145 [...] AM EST Librado Patel MD CHEMISTRY ORDERABLES [facility] [place] [address] * (ABNORMAL) CBC (with Diff) (10/03/2024 4:05 [...] Immature Gran % 0.7 % 4:29 AM [facility] Immature Gran Absolute 0.10(H) 0.00 - 0.04 x10(3)/mc L 10/03/2024 4:29 AM [facility] Blood VENOUS BLOOD SPECIMEN / Unknown Venipuncture / Unknown 10/03/2024 4:05 AM EST 10/03/2024 4:26 AM EST Librado Patel MD HEMATOLOGY ORDERABLE S [facility] [place] [address] * POC, GLUCOSE (10/03/2024 4:03 AM EST) Glucometer, POC 179 65 - 199 mg/dL 10/03/2024 4:04 AM [facility] Comment:Supplemental ranges: <140 mg/dL before meals <180 mg/dL all other times of the day. Blood CAPILLARY BLOOD / Unknown 10/03/2024 4:03 AM EST 10/03/2024 4:04 AM EST Gissell Velazco MD POINT OF CARE TEST ORDERABLES [facility] [place] [address] * POC, GLUCOSE (10/02/2024 11:39 PM EST) Glucometer, POC 159 65 - 199 mg/dL 10/02/2024 11:39 PM EST [facility] Comment:Supplemental ranges: <140 mg/dL before meals <180 mg/dL all other times of the day. Blood CAPILLARY BLOOD / Unknown 10/02/2024 11:39 PM EST 10/02/2024 11:39 PM EST Gissell Velazco MD POINT OF CARE TEST ORDERABLES [facility] [place] [address] * POC, GLUCOSE (10/02/2024 8:33 PM EST) Glucometer, POC 141 65 - 199 mg/dL 10/02/2024 8:33 PM EST [facility] Comment:Supplemental ranges: <140 mg/dL before meals <180 mg/dL all other times of the day. Blood CAPILLARY BLOOD / Unknown 10/02/2024 8:33 PM EST 10/02/2024 8:33 PM EST Gissell Velazco MD POINT OF CARE TEST ORDERABLES Performing Organization Address City/[facility]/ZIP Co de Phone Number [facility] [place] [address] * POC, GLUCOSE (10/02/2024 4:08 PM EST) Glucometer, POC 175 65 - 199 mg/dL 10/02/2024 4:08 PM EST [facility] Comment:Supplemental ranges: <140 mg/dL before meals <180 mg/dL all other times of the day. Blood CAPILLARY BLOOD / Unknown 10/02/2024 4:08 PM EST 10/02/2024 4:08 PM EST Gissell Velazco MD POINT OF CARE TEST ORDERABLES [facility] [place] [address] * POC, GLUCOSE (10/02/2024 11:52 AM EST) Glucometer, POC 129 65 - 199 mg/dL 10/02/2024 11:52 AM EST [facility] Comment:Supplemental ranges: <140 mg/dL before meals <180 mg/dL all other times of the day. Blood CAPILLARY BLOOD / Unknown 10/02/2024 11:52 AM EST 10/02/2024 11:52 AM EST Gissell Velazco MD POINT OF CARE TEST ORDERABLES Performing Organization Address City/[facility]/ZIP Co de Phone Number [facility] [place] [address] * POC, GLUCOSE (10/02/2024 8:27 AM EST) Glucometer, POC 122 65 - 199 mg/dL 10/02/2024 8:27 AM EST [facility] Comment:Supplemental ranges: <140 mg/dL before meals <180 mg/dL all other times of the day. Blood CAPILLARY BLOOD / Unknown 10/02/2024 8:27 AM EST 10/02/2024 8:27 AM EST Gissell Velazco MD POINT OF CARE TEST ORDERABLES Performing Organization Address City/[facility] Co de Phone Number [facility] [place] [address] * POC, GLUCOSE (10/02/2024 4:41 AM EST) Glucometer, POC 121 65 - 199 mg/dL 10/02/2024 4:41 AM EST [facility] Comment:Supplemental ranges: <140 mg/dL before meals <180 mg/dL all other times of the day. Blood CAPILLARY BLOOD / Unknown 10/02/2024 4:41 AM EST 10/02/2024 4:41 AM EST Gissell Velazco MD POINT OF CARE TEST ORDERABLES Performing Organization Address City/[facility]/ZIP Co de Phone Number [facility] [place] [address] * Phosphorus (10/02/2024 1:49 AM EST) Pathologist [facility] Phosphorus 2.9 2.5 - 4.5 mg/dL 10/02/2024 2:25 AM EST [facility] Blood VENOUS BLOOD SPECIMEN / Unknown Venipuncture / Unknown 10/02/2024 1:49 AM EST 10/02/2024 1:54 AM EST Librado Patel MD CHEMISTRY ORDERABLES Performing Organization Address City/[facility]/ZIP Co de Phone Number [facility] [place] [address] * Magnesium (10/02/2024 1:49 AM EST) [facility] Magnesium 0.83 0.69 - 1.07 mMol/L 10/02/2024 2:25 AM EST [facility] Blood VENOUS BLOOD SPECIMEN / Unknown Venipuncture / Unknown 10/02/2024 1:49 AM EST 10/02/2024 1:54 AM EST Librado Patel MD CHEMISTRY ORDERABLES Performing Organization Address City/[facility]/ZIP Co de Phone Number [facility] [place] [address] * (ABNORMAL) Basic Metabolic Panel (10/02/2024 1:49 AM EST) [facility] Glucose 123 65 - 199 mg/dL 10/02/2024 2:25 AM EST [facility] Comment:Glucose Concentratio n >=200 mg/dL plus symptoms is consistent with Diabetes Mellitus. Blood Urea Nitrogen 27(H) 8 - 18 mg/dL 10/02/2024 2:25 AM EST [facility] Creatinine 0.39(L) 0.70 - 1.20 mg/dL 10/02/2024 2:25 AM [facility] Sodium 146(H) 135 - 145 mMol/L 10/02/2024 2:25 AM [facility] Potassium 3.6 3.5 - 5.0 mMol/L 10/02/2024 2:25 AM EST [facility] Chloride 108(H) 98 - 107 mMol/L 10/02/2024 2:25 AM EST [facility] Carbon Dioxide 28 22 - 31 mMol/L 10/02/2024 2:25 AM EST [facility] Anion Gap 10 5 - 15 mMol/L 10/02/2024 2:25 AM EST [facility] Calcium 8.7 8.5 - 10.5 mg/dL 10/02/2024 2:25 AM EST [facility] Est Glomerular Filtration Rate - Female 106 mL/min/1. 73 m?? 10/02/2024 2:25 AM EST [facility] Comment: This patient's estimated GFR [...] AM EST Librado Patel MD CHEMISTRY ORDERABLES [facility] [place] [address] * (ABNORMAL) CBC (with Diff) (10/02/2024 1:49 AM EST) White Blood Cell 19.16(H) 4.00 - 9.50 x10(3)/mc L 10/02/2024 2:18 AM EST [facility] Red Blood Cell 3.35(L) 4.00 - 5.21 x10(6)/mc L 10/02/2024 2:18 AM [facility] Hemoglobin [...] - 3.20 x10(3)/mc L 10/02/2024 2:18 AM EST [facility] Monocyte % 6.3 % 10/02/2024 2:18 AM [facility] Monocyte Absolute 1.21(H) 0.30 - 0.90 x10(3)/mc L 10/02/2024 2:18 AM [facility] Eos % 0.3 % 10/02/2024 2:18 [...] EST Librado Patel MD HEMATOLOGY ORDERABLE S [facility] [place] [address] * POC, GLUCOSE (10/02/2024 12:22 AM EST) [facility] Signature Glucometer, POC 125 65 - 199 mg/dL 10/02/2024 12:23 AM EST [facility] Comment:Supplemental ranges: <140 mg/dL before meals <180 mg/dL all other times of the day. Blood CAPILLARY BLOOD / Unknown 10/02/2024 12:22 AM EST 10/02/2024 12:23 AM EST Gissell Velazco MD POINT OF CARE TEST ORDERABLES [facility] [place] [address] * POC, GLUCOSE (10/01/2024 7:44 PM EST) Glucometer, POC 161 65 - 199 mg/dL 10/01/2024 7:44 PM EST [facility] Comment:Supplemental ranges: <140 mg/dL before meals <180 mg/dL all other times of the day. Blood CAPILLARY BLOOD / Unknown 10/01/2024 7:44 PM EST 10/01/2024 7:44 PM EST Gissell Velazco MD POINT OF CARE TEST ORDERABLES Performing Organization Address City/[facility] Co de Phone Number [facility] [place] [address] * POC, GLUCOSE (10/01/2024 4:22 PM EST) Glucometer, POC 190 65 - 199 mg/dL 10/01/2024 4:23 PM EST [facility] Comment:Supplemental ranges: <140 mg/dL before meals <180 mg/dL all other times of the day. Blood CAPILLARY BLOOD / Unknown 10/01/2024 4:22 PM EST 10/01/2024 4:23 PM EST Gissell Velazco MD POINT OF CARE TEST ORDERABLES [facility] [place] [address] * POC, GLUCOSE (10/01/2024 12:02 PM EST) Glucometer, POC 137 65 - 199 mg/dL 10/01/2024 12:03 PM EST [facility] Comment:Supplemental ranges: <140 mg/dL before meals <180 mg/dL all other times of the day. Blood CAPILLARY BLOOD / Unknown 10/01/2024 12:02 PM EST 10/01/2024 12:03 PM EST Gissell Velazco MD POINT OF CARE TEST ORDERABLES Performing Organization Address City/[facility]/ZIP Co de Phone Number [facility] [place] [address] * POC, GLUCOSE (10/01/2024 8:01 AM EST) Glucometer, POC 160 65 - 199 mg/dL 10/01/2024 8:02 AM EST [facility] Comment:Supplemental ranges: <140 mg/dL before meals <180 mg/dL all other times of the day. Blood CAPILLARY BLOOD / Unknown 10/01/2024 8:01 AM EST 10/01/2024 8:02 AM EST Gissell Velazco MD POINT OF CARE TEST ORDERABLES Performing Organization Address City/[facility]/ZIP Co de Phone Number [facility] [place] [address] * POC, GLUCOSE (10/01/2024 3:39 AM EST) Glucometer, POC 162 65 - 199 mg/dL 10/01/2024 3:39 AM EST [facility] Comment:Supplemental ranges: <140 mg/dL before meals <180 mg/dL all other times of the day. Blood CAPILLARY BLOOD / Unknown 10/01/2024 3:39 AM EST 10/01/2024 3:39 AM EST Gissell Velazco MD POINT OF CARE TEST ORDERABLES [facility] [place] [address] * (ABNORMAL) Phosphorus (10/01/2024 12:21 AM EST) Phosphorus 2.4(L) 2.5 - 4.5 mg/dL 10/01/2024 1:03 AM [facility] Blood VENOUS BLOOD SPECIMEN / Unknown Venipuncture / Unknown 10/01/2024 12:21 AM EST 10/01/2024 12:33 AM EST Librado Patel MD CHEMISTRY ORDERABLES Performing Organization Address City/[facility]/ZIP Co de Phone Number [facility] [place] [address] * Magnesium (10/01/2024 12:21 AM EST) Magnesium 0.84 0.69 - 1.07 mMol/L 10/01/2024 1:03 AM [facility] Blood VENOUS BLOOD SPECIMEN / Unknown Venipuncture / Unknown 10/01/2024 12:21 AM EST 10/01/2024 12:33 AM EST Librado Patel MD CHEMISTRY ORDERABLES Performing Organization Address City/[facility]/ZIP Co de Phone Number [facility] [place] [address] * (ABNORMAL) Basic Metabolic Panel (10/01/2024 12:21 AM EST) Glucose 124 65 - 199 mg/dL 10/01/2024 [...] AM EST Librado Patel MD CHEMISTRY ORDERABLES [facility] [place] [address] * (ABNORMAL) CBC (with Diff) (10/01/2024 12:21 AM EST) White Blood Cell 22.24(H) 4.00 - 9.50 x10(3)/mc L 10/01/2024 12:37 AM EST [facility] Red Blood Cell 3.22(L) 4.00 [...] - 0.40 x10(3)/mc L 10/01/2024 12:37 AM [facility] Basophil % 0.1 % 10/01/2024 12:37 [...] EST Librado Patel MD HEMATOLOGY ORDERABLE S [facility] [place] [address] * (ABNORMAL) POC, GLUCOSE (09/30/2024 8:15 PM EST) Glucometer, POC 233(H) 65 - 199 mg/dL 09/30/2024 8:16 PM EST [facility] Comment:Supplemental ranges: <140 mg/dL before meals <180 mg/dL all other times of the day. Blood CAPILLARY BLOOD / Unknown 09/30/2024 8:15 PM EST 09/30/2024 8:16 PM EST Gissell Velazco MD POINT OF CARE TEST ORDERABLES [facility] [place] [address] * (ABNORMAL) POC, GLUCOSE (09/30/2024 4:36 PM EST) Glucometer, POC 207(H) 65 - 199 mg/dL 09/30/2024 4:39 PM EST [facility] Comment:Supplemental ranges: <140 mg/dL before meals <180 mg/dL all other times of the day. Blood CAPILLARY BLOOD / Unknown 09/30/2024 4:36 PM EST 09/30/2024 4:39 PM EST Gissell Velazco MD POINT OF CARE TEST ORDERABLES Performing Organization Address City/[facility]/ZIP Co de Phone Number [facility] [place] [address] * POC, GLUCOSE (09/30/2024 11:53 AM EST) Glucometer, POC 196 65 - 199 mg/dL 09/30/2024 11:53 AM EST [facility] Comment:Supplemental ranges: <140 mg/dL before meals <180 mg/dL all other times of the day. Blood CAPILLARY BLOOD / Unknown 09/30/2024 11:53 AM EST 09/30/2024 11:54 AM EST Gissell Velazco MD POINT OF CARE TEST ORDERABLES [facility] [place] [address] * (ABNORMAL) POC, GLUCOSE (09/30/2024 9:05 AM EST) Glucometer, POC 229(H) 65 - 199 mg/dL 09/30/2024 9:05 AM EST [facility] Comment:Supplemental ranges: <140 mg/dL before meals <180 mg/dL all other times of the day. Blood CAPILLARY BLOOD / Unknown 09/30/2024 9:05 AM EST 09/30/2024 9:05 AM EST Gissell Velazco MD POINT OF CARE TEST ORDERABLES Performing Organization Address City/[facility]/ZIP Co de Phone Number [facility] [place] [address] * POC, GLUCOSE (09/30/2024 4:53 AM EST) Glucometer, POC 165 65 - 199 mg/dL 09/30/2024 4:53 AM EST [facility] Comment:Supplemental ranges: <140 mg/dL before meals <180 mg/dL all other times of the day. Blood CAPILLARY BLOOD / Unknown 09/30/2024 4:53 AM EST 09/30/2024 4:54 AM EST Gissell Velazco MD POINT OF CARE TEST ORDERABLES Performing Organization Address City/[facility]/ZIP Co de Phone Number [facility] [place] [address] * Phosphorus (09/30/2024 1:44 AM EST) Phosphorus 2.9 2.5 - 4.5 mg/dL 09/30/2024 2:22 AM EST [facility] Blood VENOUS BLOOD SPECIMEN / Unknown Venipuncture / Unknown 09/30/2024 1:44 AM EST 09/30/2024 1:52 AM EST Librado Patel MD CHEMISTRY ORDERABLES [facility] [place] [address] * Magnesium (09/30/2024 1:44 AM EST) Magnesium 0.79 0.69 - 1.07 mMol/L 09/30/2024 2:22 AM EST [facility] Blood VENOUS BLOOD SPECIMEN / Unknown Venipuncture / Unknown 09/30/2024 1:44 AM EST 09/30/2024 1:52 AM EST Librado Patel MD CHEMISTRY ORDERABLES [facility] [place] [address] * (ABNORMAL) Basic Metabolic Panel (09/30/2024 1:44 AM EST) Glucose 141 65 - 199 mg/dL 09/30/2024 2:22 AM EST [facility] Comment:Glucose Concentratio n >=200 mg/dL plus symptoms is consistent with Diabetes Mellitus. Blood Urea Nitrogen 16 8 - 18 mg/dL 09/30/2024 2:22 AM [facility] Creatinine 0.47(L) 0.70 - 1.20 mg/dL 09/30/2024 2:22 AM EST [facility] Sodium 139 135 - 145 [...] AM EST Librado Patel MD CHEMISTRY ORDERABLES [facility] [place] [address] * (ABNORMAL) CBC (with Diff) (09/30/2024 1:44 [...] <0.01 <0.01 x10(3)/mc L 09/30/2024 1:59 AM [facility] Neutrophil % 85.9 % 09/30/2024 1:59 AM [facility] Neutrophil Absolute (ANC) - Automated 22.26(H) 1.70 - 6.10 x10(3)/mc L 09/30/2024 1:59 AM [facility] Lymph % 5.1 % 09/30/2024 1:59 AM [facility] [...] - 0.10 x10(3)/mc L 09/30/2024 1:59 AM EST [facility] Immature Gran % 2.0 % 1:59 AM [facility] Immature Gran Absolute 0.51(H) 0.00 - 0.04 x10(3)/mc L 09/30/2024 1:59 AM [facility] Blood VENOUS BLOOD SPECIMEN / Unknown Venipuncture / Unknown 09/30/2024 1:44 AM EST 09/30/2024 1:52 AM EST Librado Patel MD HEMATOLOGY ORDERABLE S [facility] [place] [address] * POC, GLUCOSE (09/29/2024 11:37 PM EST) Glucometer, POC 133 65 - 199 mg/dL 09/29/2024 11:38 PM EST [facility] Comment:Supplemental ranges: <140 mg/dL before meals <180 mg/dL all other times of the day. Blood CAPILLARY BLOOD / Unknown 09/29/2024 11:37 PM EST 09/29/2024 11:38 PM EST Gissell Velazco MD POINT OF CARE TEST ORDERABLES [facility] [place] [address] * POC, GLUCOSE (09/29/2024 8:09 PM EST) Glucometer, POC 109 65 - 199 mg/dL 09/29/2024 8:10 PM EST [facility] Comment:Supplemental ranges: <140 mg/dL before meals <180 mg/dL all other times of the day. Blood CAPILLARY BLOOD / Unknown 09/29/2024 8:09 PM EST 09/29/2024 8:10 PM EST Gissell Velazco MD POINT OF CARE TEST ORDERABLES Performing Organization Address [facility] Co de Phone Number [facility] [place] [address] * POC, GLUCOSE (09/29/2024 6:14 PM EST) Glucometer, POC 121 65 - 199 mg/dL 09/29/2024 6:14 PM EST [facility] Comment:Supplemental ranges: <140 mg/dL before meals <180 mg/dL all other times of the day. Blood CAPILLARY BLOOD / Unknown 09/29/2024 6:14 PM EST 09/29/2024 6:15 PM EST Gissell Velazco MD POINT OF CARE TEST ORDERABLES Performing Organization Address [facility] Co de Phone Number [facility] [place] [address] * XR Chest One View (09/29/2024 1:13 PM EST) WORKSTATION ID [id number] DH RAD Anatomical Region Laterality Modality Chest [...] who have questions please contact the health cna caregiver that requested your imaging first. ? Narrative 09/30/2024 12:49 AM EST EXAMINATION: XR [...] compared to the glenoid. Procedure Note Marvin Decker DO - 09/30/2024 EXAMINATION: XR CHEST ONE [...] patients who have questions please contactthe health cna caregiver that requested your imaging first. Gissell Velazco MD IMG DX ORDERABLES * POC, GLUCOSE (09/29/2024 11:29 AM EST) Glucometer, POC 135 65 - 199 mg/dL 09/29/2024 11:30 AM EST [facility] Comment:Supplemental ranges: <140 mg/dL before meals <180 mg/dL all other times of the day. Blood CAPILLARY BLOOD / Unknown 09/29/2024 11:29 AM EST 09/29/2024 11:30 AM EST Gissell Velazco MD POINT OF CARE TEST ORDERABLES [facility] [place] [id number] * POC, GLUCOSE (09/29/2024 8:37 AM EST) Glucometer, POC 126 65 - 199 mg/dL 09/29/2024 8:38 AM EST [facility] Comment:Supplemental ranges: <140 mg/dL before meals <180 mg/dL all other times of the day. Blood CAPILLARY BLOOD / Unknown 09/29/2024 8:37 AM EST 09/29/2024 8:39 AM EST Gissell Velazco MD POINT OF CARE TEST ORDERABLES [facility] [place] [address] * POC, GLUCOSE (09/29/2024 4:47 AM EST) Glucometer, POC 145 65 - 199 mg/dL 09/29/2024 4:47 AM EST [facility] Comment:Supplemental ranges: <140 mg/dL before meals <180 mg/dL all other times of the day. Blood CAPILLARY BLOOD / Unknown 09/29/2024 4:47 AM EST 09/29/2024 4:48 AM EST Dinesh Bauer MD POINT OF CARE TEST ORDERABLES [facility] [place] [address] * Magnesium (09/29/2024 1:09 AM EST) [facility] Magnesium 0.77 0.69 - 1.07 mMol/L 09/29/2024 1:51 AM [facility] Blood VENOUS BLOOD SPECIMEN / Unknown Venipuncture / Unknown 09/29/2024 1:09 AM EST 09/29/2024 1:27 AM EST Librado Patel MD CHEMISTRY ORDERABLES Performing Organization Address City/[facility]/ZIP Co de Phone Number [facility] [place] [address] * (ABNORMAL) CBC (with Diff) (09/29/2024 1:09 AM EST) [facility] White Blood Cell 26.40(H) 4.00 - 9.50 [...] - 0.10 x10(3)/mc L 09/29/2024 1:36 AM EST [facility] Immature Gran % 2.3 % 1:36 AM [facility] Immature Gran Absolute 0.61(H) 0.00 - 0.04 x10(3)/mc L 09/29/2024 1:36 AM [facility] Blood VENOUS BLOOD SPECIMEN / Unknown Venipuncture / Unknown 09/29/2024 1:09 AM EST 09/29/2024 1:27 AM EST Librado Patel MD HEMATOLOGY ORDERABLE S Performing Organization Address City/[facility]/ZIP Co de Phone Number [facility] [place] [address] * POC, GLUCOSE (09/29/2024 12:53 AM EST) Glucometer, POC 146 65 - 199 mg/dL 09/29/2024 12:53 AM EST [facility] Comment:Supplemental ranges: <140 mg/dL before meals <180 mg/dL all other times of the day. Blood CAPILLARY BLOOD / Unknown 09/29/2024 12:53 AM EST 09/29/2024 12:53 AM EST Dinesh Bauer MD POINT OF CARE TEST ORDERABLES [facility] [place] [address] * POC, GLUCOSE (09/28/2024 10:25 PM EST) Glucometer, POC 131 65 - 199 mg/dL 09/28/2024 10:26 PM EST [facility] Comment:Supplemental ranges: <140 mg/dL before meals <180 mg/dL all other times of the day. Blood CAPILLARY BLOOD / Unknown 09/28/2024 10:25 PM EST 09/28/2024 10:26 PM EST Dinesh Bauer MD POINT OF CARE TEST ORDERABLES [facility] [place] [address] * XR Chest One View (09/28/2024 7:58 PM EST) WORKSTATION ID [id number] RAD Anatomical Region Laterality Modality Chest N/A [...] who have questions please contact the health cna caregiver that requested your imaging first. ? Narrative 09/28/2024 8:09 PM EST EXAMINATION: XR [...] and has its distal tip below the [id number]. A right-sided PICC has its distal tip [...] and has its distal tip below the [id number]. A right-sided PICC has its distal tip [...] patients who have questions please contactthe health cna caregiver that requested your imaging first. Dinesh Bauer MD IMG DX ORDERABLES * POC, GLUCOSE (09/28/2024 7:50 PM EST) [facility] Signature Glucometer, POC 130 65 - 199 mg/dL 09/28/2024 7:51 PM EST [facility] Comment:Supplemental ranges: <140 mg/dL before meals <180 mg/dL all other times of the day. Blood CAPILLARY BLOOD / Unknown 09/28/2024 7:50 PM EST 09/28/2024 7:51 PM EST Dinesh Bauer MD POINT OF CARE TEST ORDERABLES [facility] [place] [address] * POC, GLUCOSE (09/28/2024 3:52 PM EST) Glucometer, POC 137 65 - 199 mg/dL 09/28/2024 3:53 PM EST [facility] Comment:Supplemental ranges: <140 mg/dL before meals <180 mg/dL all other times of the day. Blood CAPILLARY BLOOD / Unknown 09/28/2024 3:52 PM EST 09/28/2024 3:53 PM EST Dinesh Bauer MD POINT OF CARE TEST ORDERABLES Performing Organization Address [facility] Co de Phone Number [facility] [place] [address] * POC, GLUCOSE (09/28/2024 12:19 PM EST) Glucometer, POC 163 65 - 199 mg/dL 09/28/2024 12:19 PM EST [facility] Comment:Supplemental ranges: <140 mg/dL before meals <180 mg/dL all other times of the day. Blood CAPILLARY BLOOD / Unknown 09/28/2024 12:19 PM EST 09/28/2024 12:20 PM EST Dinesh Bauer MD POINT OF CARE TEST ORDERABLES Performing Organization Address [facility] Co de Phone Number [facility] [place] [address] * POC, GLUCOSE (09/28/2024 7:54 AM EST) Glucometer, POC 161 65 - 199 mg/dL 09/28/2024 7:54 AM EST [facility] Comment:Supplemental ranges: <140 mg/dL before meals <180 mg/dL all other times of the day. Blood CAPILLARY BLOOD / Unknown 09/28/2024 7:54 AM EST 09/28/2024 7:54 AM EST Librado Patel MD POINT OF CARE TEST O RDERABLES [facility] [place] [address] * (ABNORMAL) Troponin-T, High Sensitivity 3 Hour (09/28/2024 6:37 AM EST) Troponin-T, High Sensitivity 16(H) <=14 ng/L 09/28/2024 7:25 AM EST [facility] Comment: This patient's troponin T concentration [...] troponin value can be found in the [facility] Test Catalog Troponin - [email or web address] Reference: Fourth [place] Definition of Myocardial Infarction. Journal of the [employer] 2018;72:9423-7084 Troponin-T, HS 3 hr delta 09/28/2024 7:25 AM EST [facility] Comment:Delta troponin value not calculated, sample collected outside of delta calculation time limit. Blood VENOUS BLOOD SPECIMEN / Unknown Venipuncture / Unknown 09/28/2024 6:37 AM EST 09/28/2024 6:53 AM EST Teresa Multani APRN CHEMISTRY ORDERABL ES [facility] [place] [address] * (ABNORMAL) Troponin-T, High Sensitivity 1 Hour (09/28/2024 5:00 AM EST) Troponin-T, High Sensitivity 16(H) <=14 ng/L 09/28/2024 5:40 AM EST [facility] Comment: This patient's troponin T concentration [...] troponin value can be found in the [facility] Test Catalog Troponin - [email or web address] Reference: Fourth [place] Definition of Myocardial Infarction. Journal of the [employer] 2018;72:2706-2296 Troponin-T, HS 1 hr delta 1 ng/L 09/28/2024 5:40 AM EST [facility] LABORATORY Comment:The 1 hour Troponin T delta value is the absolute difference between the Troponin T concentrations of the initial and subsequent sample collected between 45 - 120 minutes following the initial collection. Blood BLOOD SAMPLE TAKEN FROM CENTRAL LINE / Unknown Venipuncture / Unknown 09/28/2024 5:00 AM EST 09/28/2024 5:08 AM EST Teresa Multani APRN CHEMISTRY ORDERABL ES [facility] [place] [address] * POC, GLUCOSE (09/28/2024 4:16 AM EST) Glucometer, POC 174 65 - 199 mg/dL 09/28/2024 4:17 AM EST [facility] Comment:Supplemental ranges: <140 mg/dL before meals <180 mg/dL all other times of the day. Blood CAPILLARY BLOOD / Unknown 09/28/2024 4:16 AM EST 09/28/2024 4:17 AM EST Librado Patel MD POINT OF CARE TEST O RDERABLES [facility] [place] [address] * XR Chest One View (09/28/2024 4:06 AM EST) [facility] WORKSTATION ID [id number] RAD Anatomical Region Laterality Modality Chest N/A [...] who have questions please contact the health cna caregiver that requested your imaging first. ? Narrative [...] sclerosis and osteophyte formation. Procedure Note Marvin Decker, DO - 09/28/2024 EXAMINATION: XR CHEST ONE [...] patients who have questions please contactthe health cna caregiver that requested your imaging first. Teresa Multani HOG CONFINEMENT SYSTEM MANAGER IMG DX ORDERABLES * EKG 12 Lead (09/28/2024 3:59 AM EST) Ventricular rate 104 BPM MUSE SYSTEM Atrial Rate 104 BPM MUSE SYSTEM P-R Interval 138 ms MUSE SYSTEM QRS Duration 64 ms MUSE SYSTEM Q-T Interval 342 ms MUSE SYSTEM QTC Calculated (Bezet) 449 ms MUSE SYSTEM Calculated P [place] 44 degrees MUSE SYSTEM Calculated R [place] -22 degrees MUSE SYSTEM Calculated T [place] 34 degrees MUSE SYSTEM INTERPRETATION Sinus tachycardia with Premature atrial complexes Low voltage QRS Cannot rule out Anterior infarct , age undetermined Abnormal ECG When compared with ECG of 16-SEP-2024 15:33, Premature atrial complexes are now Present Confirmed by MD Jose L, Abdiel ([id number]) on 09/28/2024 2:49:44 PM MUSE SYSTEM 09/28/2024 3:59 AM EST 09/28/2024 2:49 PM EST Eri Stovall APRN ECG ORDERABLES MUSE SYSTEM * EKG 12 Lead (09/28/2024 3:59 AM EST) Ventricular rate 104 BPM MUSE SYSTEM Atrial Rate 104 BPM MUSE SYSTEM P-R Interval 138 ms MUSE SYSTEM QRS Duration 64 ms MUSE SYSTEM Q-T Interval 342 ms MUSE SYSTEM QTC Calculated (Bezet) 449 ms MUSE SYSTEM Calculated P [place] 44 degrees MUSE SYSTEM Calculated R [place] -22 degrees MUSE SYSTEM Calculated T [place] 34 degrees MUSE SYSTEM INTERPRETATION Sinus tachycardia with Premature atrial complexes Low voltage QRS Cannot rule out Anterior infarct , age undetermined Abnormal ECG When compared with ECG of 16-SEP-2024 15:33, Premature atrial complexes are now Present Confirmed by fellow Johanna Beatty ([id number]) on 09/29/2024 10:55:55 AM Confirmed by MD BAYRON, MARY ([id number] on 09/29/2024 8:30:41 PM MUSE SYSTEM 09/28/2024 3:59 AM EST 09/29/2024 8:30 PM EST Librado Patel MD ECG ORDERABLES MUSE SYSTEM * (ABNORMAL) Scan, Peripheral Blood (09/28/2024 3:58 AM EST) RBC Morphology Abnormal 09/28/2024 4:58 AM EST [facility] Platelet Estimate Increased(A) Normal 09/28 4:58 AM EST [facility] Polychromasia Present 09/28/2024 4:58 AM EST [facility] WBC MORPHOLOGY See Comment(A) (none) 09/28/2024 4:58 AM EST [facility] Comment:Vacuolated Grans Blood VENOUS BLOOD SPECIMEN / Unknown Venipuncture / Unknown 09/28/2024 3:58 AM EST 09/28/2024 4:03 AM EST Librado Patel MD HEMATOLOGY ORDERABLE S Performing Organization Address City/[facility]/ZIP Co de Phone Number [facility] [place] [address] * (ABNORMAL) Troponin-T, High Sensitivity (09/28/2024 3:58 AM EST) Troponin-T, High Sensitivity Initial 15(H) <=14 ng/L 09/28/2024 4:34 AM EST [facility] Comment: This patient's troponin T concentration [...] troponin value can be found in the [facility] Laboratory Test Catalog Troponin - [email or web address]/[email or web address]/[email or web address] Reference: Fourth [place] Definition of Myocardial Infarction. Journal of the [place] [employer] 2018;72:8424-1709 Blood VENOUS BLOOD SPECIMEN / Unknown Venipuncture / Unknown 09/28/2024 3:58 AM EST 09/28/2024 4:03 AM EST Teresa Multani APRN CHEMISTRY ORDERABL ES [facility] [place] [address] * (ABNORMAL) CBC (with Diff) (09/28/2024 3:58 AM EST) White Blood Cell 35.37(HHH ) 4.00 - 9.50 x10(3)/mc L 09/28/2024 4:58 AM EST [facility] Red Blood Cell 3.70(L) 4.00 - 5.21 x10(6)/mc L 09/28/2024 4:58 AM EST [facility] Hemoglobin 11.0(L) 11.7 - 15.5 g/dL 09/28/2024 4:58 AM EST [facility] Hematocrit 34.0(L) 35.7 - 45.8 % 09/28/2024 4:58 AM EST [facility] Mean Cell Volume 91.9 82.6 - [...] - 0.90 x10(3)/mc L 09/28/2024 4:[address] [facility] [...] - 0.40 x10(3)/mc L 09/28/2024 4:58 AM [facility] [...] - 0.10 x10(3)/mc L 09/28/2024 4:58 AM [facility] Comment:This is an appended report. These results have been appended to a previously preliminary verified report. Immature Gran % 3.5 % 4:58 AM [facility] [...] EST Librado Patel MD HEMATOLOGY ORDERABLE S [facility] [place] [address] * Phosphorus (09/28/2024 3:58 AM EST) Phosphorus 2.7 2.5 - 4.5 mg/dL 09/28/2024 4:35 AM EST [facility] Blood VENOUS BLOOD SPECIMEN / Unknown Venipuncture / Unknown 09/28/2024 3:58 AM EST 09/28/2024 4:03 AM EST Librado Patel MD CHEMISTRY ORDERABLES Performing Organization Address City/[facility]/ZIP Co de Phone Number [facility] [place] [address] * Magnesium (09/28/2024 3:58 AM EST) Magnesium 0.82 0.69 - 1.07 mMol/L 09/28/2024 4:35 AM EST [facility] Blood VENOUS BLOOD SPECIMEN / Unknown Venipuncture / Unknown 09/28/2024 3:58 AM EST 09/28/2024 4:03 AM EST Librado Patel MD CHEMISTRY ORDERABLES [facility] [place] [address] * (ABNORMAL) Basic Metabolic Panel (09/28/2024 3:58 AM EST) Glucose 161 65 - 199 mg/dL 09/28/2024 4:35 AM EST [facility] Comment:Glucose Concentratio n >=200 mg/dL plus symptoms is consistent with Diabetes Mellitus. Blood Urea Nitrogen 21(H) 8 - 18 mg/dL 09/28/2024 4:35 AM EST [facility] Creatinine 0.49(L) 0.70 - 1.20 mg/dL 09/28/2024 4:35 AM EST [facility] Sodium 138 135 - 145 [...] AM EST Librado Patel MD CHEMISTRY ORDERABLES [facility] [place] [address] * POC, GLUCOSE (09/27/2024 11:39 PM EST) [facility] Signature Glucometer, POC 125 65 - 199 mg/dL 09/27/2024 11:40 PM EST [facility] Comment:Supplemental ranges: <140 mg/dL before meals <180 mg/dL all other times of the day. Blood CAPILLARY BLOOD / Unknown 09/27/2024 11:39 PM EST 09/27/2024 11:40 PM EST Librado Patel MD POINT OF CARE TEST O ALDO Performing Organization Address City/[facility] Co de Phone Number [facility] [place] [address] * POC, GLUCOSE (09/27/2024 7:52 PM EST) Glucometer, POC 144 65 - 199 mg/dL 09/27/2024 7:53 PM EST [facility] Comment:Supplemental ranges: <140 mg/dL before meals <180 mg/dL all other times of the day. Blood CAPILLARY BLOOD / Unknown 09/27/2024 7:52 PM EST 09/27/2024 7:53 PM EST Librado Patel MD POINT OF CARE TEST O ALDO Performing Organization Address [facility] Co de Phone Number [facility] [place] [address] * Potassium (09/27/2024 4:46 PM EST) Potassium 4.0 3.5 - 5.0 mMol/L 09/27/2024 5:24 PM EST [facility] Blood VENOUS BLOOD SPECIMEN / Unknown Venipuncture / Unknown 09/27/2024 4:46 PM EST 09/27/2024 5:00 PM EST Librado Patel MD CHEMISTRY ORDERABLES Performing Organization Address City/[facility] Co de Phone Number [facility] [place] [address] * POC, GLUCOSE (09/27/2024 4:38 PM EST) Glucometer, POC 123 65 - 199 mg/dL 09/27/2024 4:38 PM EST [facility] Comment:Supplemental ranges: <140 mg/dL before meals <180 mg/dL all other times of the day. Blood CAPILLARY BLOOD / Unknown 09/27/2024 4:38 PM EST 09/27/2024 4:38 PM EST Librado Patel MD POINT OF CARE TEST O ALDO [facility] [place] [address] * POC, GLUCOSE (09/27/2024 12:53 PM EST) Glucometer, POC 145 65 - 199 mg/dL 09/27/2024 12:54 PM EST [facility] Comment:Supplemental ranges: <140 mg/dL before meals <180 mg/dL all other times of the day. Blood CAPILLARY BLOOD / Unknown 09/27/2024 12:53 PM EST 09/27/2024 12:54 PM EST Librado Patel MD POINT OF CARE TEST O ALDO Performing Organization Address City/[facility] Co de Phone Number [facility] [place] [address] * C diff Screen (09/27/2024 8:46 AM EST) Pathologist [facility] C Diff Interp Negative Negative 09/27/2024 1:42 PM EST [facility] Comment:Clostridioides diffi cile is not present in the specimen. If patient is having diarrhea suspected to be from an infectious cause, then Soap & Water Contact Precautions are still required. If patient is having diarrhea with no suspected infectious cause use standard precautions. C Diff PCR Negative Negative 09/27/2024 1:42 PM EST [facility] Stool STOOL SPECIMEN / Unknown Non Blood Collection / Unknown 09/27/2024 8:46 AM EST 09/27/2024 8:59 AM EST Mariola Calixto MD MICROBIOLOGY - GEN ERAL ORDERABLES Performing Organization Address City/[facility]/ZIP Co de Phone Number [facility] [place] [address] * C Diff PCR (09/27/2024 8:46 AM EST) Stool STOOL SPECIMEN / Unknown Non Blood Collection / Unknown 09/27/2024 8:46 AM EST 09/27/2024 8:59 AM EST Mariola Calixto MD MICROBIOLOGY - GEN ERAL ORDERABLES Performing Organization Address City/[facility]/ZIP Co de Phone Number [facility] [place] [address] * POC, GLUCOSE (09/27/2024 8:24 AM EST) Glucometer, POC 106 65 - 199 mg/dL 09/27/2024 8:25 AM EST [facility] Comment:Supplemental ranges: <140 mg/dL before meals <180 mg/dL all other times of the day. Blood CAPILLARY BLOOD / Unknown 09/27/2024 8:24 AM EST 09/27/2024 8:25 AM EST Mariola Calixto MD POINT OF CARE TEST ORDERABLES Performing Organization Address City/[facility]/ZIP Co de Phone Number [facility] [place] [address] * POC, GLUCOSE (09/27/2024 3:40 AM EST) Glucometer, POC 148 65 - 199 mg/dL 09/27/2024 3:40 AM EST [facility] Comment:Supplemental ranges: <140 mg/dL before meals <180 mg/dL all other times of the day. Blood CAPILLARY BLOOD / Unknown 09/27/2024 3:40 AM EST 09/27/2024 3:40 AM EST Mariola Calixto MD POINT OF CARE TEST ORDERABLES [facility] [place] [address] * Magnesium (09/27/2024 1:38 AM EST) [facility] Magnesium 0.91 0.69 - 1.07 mMol/L 09/27/2024 2:[address] [facility] Blood VENOUS BLOOD SPECIMEN / Unknown Venipuncture / Unknown 09/27/2024 1:38 AM EST 09/27/2024 1:50 AM EST Librado Patel MD CHEMISTRY ORDERABLES Performing Organization Address City/[facility]/ZIP Co de Phone Number [facility] [place] [address] * (ABNORMAL) Basic Metabolic Panel (09/27/2024 1:38 AM EST) [facility] Glucose 148 65 - 199 mg/dL 09/27/2024 [...] 8.5 - 10.5 mg/dL 09/27/2024 2:19 AM EST [facility] Est Glomerular Filtration Rate - Female 99 mL/min/1. 73 m?? 09/27/2024 2:19 AM EST [facility] Comment: This patient's estimated GFR [...] AM EST Librado Patel MD CHEMISTRY ORDERABLES [facility] [place] [id number] * (ABNORMAL) CBC (with Diff) (09/27/2024 1:38 AM EST) White Blood Cell 39.03(H ) 4.00 - 9.50 x10(3)/mc L 09/27/2024 [...] - 0.40 x10(3)/mc L 09/27/2024 2:30 AM EST [facility] Basophil % 0.4 % 09/27/2024 2:30 AM EST [facility] Baso Absolute 0.16(H) 0.00 - 0.10 x10(3)/mc L 09/27/2024 2:30 AM EST [facility] Immature Gran % 4.7 % 2:30 AM EST [facility] Immature Gran Absolute 1.83(H) 0.00 - 0.04 x10(3)/mc L 09/27/2024 2:30 AM EST [facility] Blood VENOUS BLOOD SPECIMEN / Unknown Venipuncture / Unknown 09/27/2024 1:38 AM EST 09/27/2024 1:50 AM EST Librado Patel MD HEMATOLOGY ORDERABLE S [facility] [place] [address] * Phosphorus (09/27/2024 1:38 AM EST) Phosphorus 4.0 2.5 - 4.5 mg/dL 09/27/2024 2:19 AM EST [facility] Blood VENOUS BLOOD SPECIMEN / Unknown Venipuncture / Unknown 09/27/2024 1:38 AM EST 09/27/2024 1:50 AM EST Librado Patel MD CHEMISTRY ORDERABLES [facility] [place] [address] * POC, GLUCOSE (09/26/2024 11:30 PM EST) Glucometer, POC 121 65 - 199 mg/dL 09/26/2024 11:31 PM EST [facility] Comment:Supplemental ranges: <140 mg/dL before meals <180 mg/dL all other times of the day. Blood CAPILLARY BLOOD / Unknown 09/26/2024 11:30 PM EST 09/26/2024 11:31 PM EST Mariola Calixto MD POINT OF CARE TEST ORDERABLES Performing Organization Address City/[facility]/ZIP Co de Phone Number [facility] [place] [address] * POC, GLUCOSE (09/26/2024 7:27 PM EST) Glucometer, POC 159 65 - 199 mg/dL 09/26/2024 7:27 PM EST [facility] Comment:Supplemental ranges: <140 mg/dL before meals <180 mg/dL all other times of the day. Blood CAPILLARY BLOOD / Unknown 09/26/2024 7:27 PM EST 09/26/2024 7:27 PM EST Mariola Calixto MD POINT OF CARE TEST ORDERABLES Performing Organization Address [facility] Co de Phone Number [facility] [place] [address] * POC, GLUCOSE (09/26/2024 3:12 PM EST) Glucometer, POC 115 65 - 199 mg/dL 09/26/2024 3:12 PM EST [facility] Comment:Supplemental ranges: <140 mg/dL before meals <180 mg/dL all other times of the day. Blood CAPILLARY BLOOD / Unknown 09/26/2024 3:12 PM EST 09/26/2024 3:12 PM EST Mariola Calixto MD POINT OF CARE TEST ORDERABLES Performing Organization Address City/[facility] Co de Phone Number [facility] [place] [address] * Blood culture (09/26/2024 2:53 PM EST) Blood Culture No growth at 120 hours 10/01/2024 4:02 PM EST [facility] Blood VENOUS BLOOD SPECIMEN / Unknown Venipuncture / Unknown 09/26/2024 2:53 PM EST 09/26/2024 2:59 PM EST Jah Altman APRN MICROBIOLOGY - BLO OD ORDERABLES Performing Organization Address [facility] Co de Phone Number [facility] [place] [address] * Blood culture (09/26/2024 2:42 PM EST) Blood Culture No growth at 120 hours 10/01/2024 4:02 PM EST [facility] Blood VENOUS BLOOD SPECIMEN / Unknown Venipuncture / Unknown 09/26/2024 2:42 PM EST 09/26/2024 2:59 PM EST Jah Bricenosandraivan RICHARD MICROBIOLOGY - BLO OD ORDERABLES Performing Organization Address [facility] Co de Phone Number [facility] [place] [address] * (ABNORMAL) CT Abdomen & Pelvis w Contrast (09/26/2024 1:37 PM EST) WORKSTATION ID [id number] RAD Anatomical Region Laterality Modality Abdomen, Pelvis [...] who have questions please contact the health cna caregiver that requested your imaging first. ? Narrative [...] body habitus and arm positioning limits evaluation. Medical Lab Technologist Images: Noncontributory. CT OF THE CHEST: Pulmonary [...] sclerosis and osteophyte formation. Jah Altman APRN [facility] CT ORDERABLES * CT Head wo Contrast (Generic) (09/26/2024 1:37 PM EST) WORKSTATION ID [id number] RAD Anatomical Region Laterality Modality Head Computed [...] who have questions please contact the health cna caregiver that requested your imaging first. ? Narrative 09/26/2024 2:26 PM EST EXAMINATION: CT [...] patients who have questions please contactthe health cna caregiver that requested your imaging first. Marisela Florence Cartwright HOG CONFINEMENT SYSTEM MANAGER IMG CT ORDERABLES * (ABNORMAL) CT Angiogram Chest for Pulmonary Embolus w Contrast (09/26/2024 1:37 PM EST) WORKSTATION ID [id number] RAD Anatomical Region Laterality Modality Chest Computed [...] who have questions please contact the health cna caregiver that requested your imaging first. ? Narrative [...] body habitus and arm positioning limits evaluation. Medical Lab Technologist Images: Noncontributory. CT OF THE CHEST: Pulmonary [...] Resulting Agency Comment Unexpected Finding Marisela Cartwright HOG CONFINEMENT SYSTEM MANAGER IMG CT ORDERABLES * Potassium (09/26/2024 12:16 PM EST) Potassium 4.2 3.5 - 5.0 mMol/L 09/26/2024 1:00 PM EST [facility] Blood VENOUS BLOOD SPECIMEN / Unknown Central/PICC Line / Unknown 09/26/2024 12:16 PM EST 09/26/2024 12:24 PM EST Librado Patel MD CHEMISTRY ORDERABLES Performing Organization Address [facility] Co de Phone Number [facility] [place] [address] * POC, GLUCOSE (09/26/2024 11:27 AM EST) Glucometer, POC 110 65 - 199 mg/dL 09/26/2024 11:28 AM EST [facility] Comment:Supplemental ranges: <140 mg/dL before meals <180 mg/dL all other times of the day. Blood CAPILLARY BLOOD / Unknown 09/26/2024 11:27 AM EST 09/26/2024 11:28 AM EST Mariola Calixto MD POINT OF CARE TEST ORDERABLES Performing Organization Address [facility] de Phone Number [facility] [place] [address] * POC, GLUCOSE (09/26/2024 7:52 AM EST) Glucometer, POC 161 65 - 199 mg/dL 09/26/2024 8:04 AM EST [facility] Comment:Supplemental ranges: <140 mg/dL before meals <180 mg/dL all other times of the day. Blood CAPILLARY BLOOD / Unknown 09/26/2024 7:52 AM EST 09/26/2024 8:05 AM EST Mariola Calixto MD POINT OF CARE TEST ORDERABLES Performing Organization Address City/[facility] Co de Phone Number [facility] [place] [address] * CK (09/26/2024 6:35 AM EST) Creatine Kinase 78 0 - 160 unit/L 09/26/2024 7:46 AM EST [facility] Blood VENOUS BLOOD SPECIMEN / Unknown Venipuncture / Unknown 09/26/2024 6:35 AM EST 09/26/2024 6:40 AM EST Jah Altman HOG CONFINEMENT SYSTEM MANAGER CHEMISTRY ORDERABL ES [facility] [place] [address] * Prolactin (09/26/2024 6:35 AM EST) Prolactin 23.0 4.8 - 23.3 ng/ml 09/26/2024 7:26 AM EST [facility] Blood VENOUS BLOOD SPECIMEN / Unknown Venipuncture / Unknown 09/26/2024 6:35 AM EST 09/26/2024 6:40 AM EST Jah Bricenopatricia HOG CONFINEMENT SYSTEM MANAGER CHEMISTRY ORDERABL ES Performing Organization Address City/[facility]/ZIP Co de Phone Number [facility] [place] [address] * (ABNORMAL) Hepatic Function Panel (09/26/2024 6:35 [...] EST 09/26/2024 6:40 AM EST Jah Altman HOG CONFINEMENT SYSTEM MANAGER CHEMISTRY ORDERABL ES [facility] [place] [address] * (ABNORMAL) Basic Metabolic Panel (09/26/2024 6:35 [...] Patel MD CHEMISTRY ORDERABLES Performing Organization Address City/[facility]/ZIP Co de Phone Number [facility] [place] [address] * Phosphorus (09/26/2024 6:35 AM EST) Phosphorus 3.3 2.5 - 4.5 mg/dL 09/26/2024 7:19 AM EST [facility] Blood VENOUS BLOOD SPECIMEN / Unknown Venipuncture / Unknown 09/26/2024 6:35 AM EST 09/26/2024 6:40 AM EST Librado Patel MD CHEMISTRY ORDERABLES Performing Organization Address [facility] Co de Phone Number [facility] [place] [address] * POC, GLUCOSE (09/26/2024 3:23 AM EST) Glucometer, POC 91 65 - 199 mg/dL 09/26/2024 3:24 AM EST [facility] Comment:Supplemental ranges: <140 mg/dL before meals <180 mg/dL all other times of the day. Blood CAPILLARY BLOOD / Unknown 09/26/2024 3:23 AM EST 09/26/2024 3:24 AM EST Mariola Calixto MD POINT OF CARE TEST ORDERABLES Performing Organization Address City/[facility]/ZIP Co de Phone Number [facility] [place] [address] * Lactate, Whole Blood (09/26/2024 12:31 AM EDT) [facility] Lactate, Whole Blood 1.7 0.5 - 2.2 mmol/L 09/26/2024 12:50 AM EDT [facility] Blood VENOUS BLOOD SPECIMEN / Unknown Venipuncture / Unknown 09/26/2024 12:31 AM EDT 09/26/2024 12:46 AM EDT Mariola Calixto MD CHEMISTRY ORDERABL ES [facility] [place] [address] * Magnesium (09/26/2024 12:31 AM EDT) [facility] Magnesium 0.78 0.69 - 1.07 mMol/L 09/26/2024 1:32 AM EDT [facility] Blood VENOUS BLOOD SPECIMEN / Unknown Venipuncture / Unknown 09/26/2024 12:31 AM EDT 09/26/2024 12:46 AM EDT Librado Patel MD CHEMISTRY ORDERABLES [facility] [place] [address] * (ABNORMAL) CBC (with Diff) (09/26/2024 12:31 AM EDT) [facility] White Blood Cell 30.94(HHH ) 4.00 - 9.50 x10(3)/mc L 09/26/2024 1:12 AM EDT [facility] Red Blood Cell 3.53(L) 4.00 - 5.21 x10(6)/mc L 09/26/2024 1:12 AM EDT [facility] Hemoglobin 10.7(L) 11.7 - 15.5 g/dL 09/26/2024 1:12 AM EDT [facility] Hematocrit 32.2(L) 35.7 - 45.8 % 09/26/2024 1:12 AM [facility] Mean Cell Volume 91.2 82.6 - 94.4 fL 09/26/2024 1:12 AM [facility] Mean Cell Hemoglobin 30.3 27.1 - 32.0 pg 09/26/2024 1:12 AM [facility] Mean Cell Hemoglobin Concentration 33.2 31.7 - 35.0 g/dL 09/26/2024 1:12 AM [facility] Platelet 434(H) 145 - 357 x10(3)/mc L 09/26/2024 1:12 AM [facility] LABORATORY Mean Platelet Volume 10.7 7.6 - 12.9 fL 09/26/2024 1:12 AM [facility] RDW Standard Deviation 42.4 37.0 - 46.0 fL 09/26/2024 1:12 AM [facility] RDW coefficient of variation 13.0 11.5 - 14.1 % 09/26/2024 1:12 AM [facility] NRBC% auto 0.2 % 09/26/2024 1:12 AM [facility] NRBC Absolute 0.05(H) <0.01 x10(3)/mc L 09/26/2024 1:12 AM [facility] Neutrophil % 75.1 % 09/26/2024 1:12 AM [facility] Neutrophil Absolute (ANC) - Automated 23.25(H) 1.70 - 6.10 x10(3)/mc L 09/26/2024 1:12 AM [facility] Lymph % 10.8 % 09/26/2024 1:12 AM [facility] Lymph Absolute 3.33(H) 0.90 - 3.20 x10(3)/mc L 09/26/2024 1:12 AM [facility] Monocyte % 6.8 % 09/26/2024 1:12 AM [facility] Monocyte Absolute 2.09(H) 0.30 - 0.90 x10(3)/mc L 09/26/2024 1:12 AM EDT [facility] Eos % 0.2 % 09/26/2024 1:12 AM EDT [facility] Eos Absolute 0.06 0.00 - 0.40 x10(3)/mc L 09/26/2024 1:12 AM EDT [facility] Basophil % 0.3 % 09/26/2024 1:12 AM EDT [facility] Baso Absolute 0.10 0.00 - 0.10 x10(3)/mc L 09/26/2024 1:12 AM EDT [facility] Immature Gran % 6.8 % 1:12 AM EDT [facility] Immature Gran Absolute 2.11(H) 0.00 - 0.04 x10(3)/mc L 09/26/2024 1:12 AM EDT [facility] Blood VENOUS BLOOD SPECIMEN / Unknown Venipuncture / Unknown 09/26/2024 12:31 AM EDT 09/26/2024 12:46 AM EDT Librado Patel MD HEMATOLOGY ORDERABLE S [facility] [place] [address] * (ABNORMAL) Basic Metabolic Panel (09/26/2024 12:31 AM EDT) Glucose 179 65 - 199 mg/dL 09/26/2024 1:32 AM EDT [facility] Comment:Glucose Concentratio n >=200 mg/dL plus symptoms is consistent with Diabetes Mellitus. Blood Urea Nitrogen 26(H) 8 - 18 mg/dL 09/26/2024 1:32 AM EDT [facility] Creatinine 0.56(L) 0.70 - 1.20 mg/dL 09/26/2024 1:32 AM EDT [facility] Sodium 137 135 - 145 mMol/L 09/26/2024 1:32 AM EDT [facility] Potassium 3.7 3.5 - 5.0 mMol/L 09/26/2024 [facility] Chloride 104 98 - 107 mMol/L 09/26/2024 1:32 AM EDT [facility] Carbon Dioxide 23 22 - 31 mMol/L 09/26/2024 1:32 AM EDT [facility] Anion Gap 10 5 - 15 mMol/L 09/26/2024 1:[facility] Calcium 7.9(L) 8.5 - 10.5 mg/dL 09/26/2024 1:32 AM [facility] Est Glomerular Filtration Rate - Female 97 mL/min/1. 73 m?? 09/26/2024 1:32 AM [facility] Comment: This patient's estimated GFR was [...] AM EDT Librado Patel MD CHEMISTRY ORDERABLES [facility] [place] [address] * Phosphorus (09/26/2024 12:31 AM EDT) Phosphorus 3.1 2.5 - 4.5 mg/dL 09/26/2024 1:32 AM EDT [facility] Blood VENOUS BLOOD SPECIMEN / Unknown Venipuncture / Unknown 09/26/2024 12:31 AM EDT 09/26/2024 12:46 AM EDT Librado Patel MD CHEMISTRY ORDERABLES [facility] [place] [address] * POC, GLUCOSE (09/26/2024 12:06 AM EDT) Glucometer, POC 196 65 - 199 mg/dL 09/26/2024 12:07 AM EDT [facility] Comment:Supplemental ranges: <140 mg/dL before meals <180 mg/dL all other times of the day. Blood CAPILLARY BLOOD / Unknown 09/26/2024 12:06 AM EDT 09/26/2024 12:07 AM EDT Mariola Calixto MD POINT OF CARE TEST ORDERABLES [facility] [place] [address] * POC, GLUCOSE (09/25/2024 7:41 PM EDT) Glucometer, POC 178 65 - 199 mg/dL 09/25/2024 7:41 PM EDT [facility] Comment:Supplemental ranges: <140 mg/dL before meals <180 mg/dL all other times of the day. Blood CAPILLARY BLOOD / Unknown 09/25/2024 7:41 PM EDT 09/25/2024 7:41 PM EDT Mariola Calixto MD POINT OF CARE TEST ORDERABLES [facility] [place] [address] * POC, GLUCOSE (09/25/2024 4:01 PM EDT) Glucometer, POC 150 65 - 199 mg/dL 09/25/2024 4:01 PM EDT [facility] Comment:Supplemental ranges: <140 mg/dL before meals <180 mg/dL all other times of the day. Blood CAPILLARY BLOOD / Unknown 09/25/2024 4:01 PM EDT 09/25/2024 4:02 PM EDT Mariola Calixto MD POINT OF CARE TEST ORDERABLES [facility] [place] [address] * POC, GLUCOSE (09/25/2024 11:59 AM EDT) Glucometer, POC 130 65 - 199 mg/dL 09/25/2024 12:00 PM EDT [facility] Comment:Supplemental ranges: <140 mg/dL before meals <180 mg/dL all other times of the day. Blood CAPILLARY BLOOD / Unknown 09/25/2024 11:59 AM EDT 09/25/2024 12:00 PM EDT Mariola Calixto MD POINT OF CARE TEST ORDERABLES Performing Organization Address City/[facility]/ZIP Co de Phone Number [facility] [place] [address] * POC, GLUCOSE (09/25/2024 7:46 AM EDT) Glucometer, POC 158 65 - 199 mg/dL 09/25/2024 7:46 AM EDT [facility] Comment:Supplemental ranges: <140 mg/dL before meals <180 mg/dL all other times of the day. Blood CAPILLARY BLOOD / Unknown 09/25/2024 7:46 AM EDT 09/25/2024 7:47 AM EDT Mariola Calixto MD POINT OF CARE TEST ORDERABLES [facility] [place] [address] * Magnesium (09/25/2024 4:29 AM EDT) Pathologist [facility] Magnesium 0.91 0.69 - 1.07 mMol/L 09/25/2024 5:09 AM EDT [facility] Blood VENOUS BLOOD SPECIMEN / Unknown Venipuncture / Unknown 09/25/2024 4:29 AM EDT 09/25/2024 4:35 AM EDT Librado Patel MD CHEMISTRY ORDERABLES [facility] [place] [address] * (ABNORMAL) Basic Metabolic Panel (09/25/2024 4:29 AM EDT) Pathologist [facility] Glucose 185 65 - 199 mg/dL 09/25/2024 5:09 AM EDT [facility] Comment:Glucose Concentratio n >=200 mg/dL plus symptoms is consistent with Diabetes Mellitus. Blood Urea Nitrogen 28(H) 8 - 18 mg/dL 09/25/2024 5:09 AM EDT [facility] Creatinine 0.49(L) 0.70 - 1.20 mg/dL 09/25/2024 5:09 AM EDT [facility] Sodium 138 135 - 145 mMol/L 09/25/2024 5:09 AM EDT [facility] Potassium 4.1 3.5 - 5.0 mMol/L 09/25/2024 5:09 AM EDT [facility] Chloride 102 98 - 107 mMol/L 09/25/2024 5:[facility] Carbon Dioxide 24 22 - 31 mMol/L 09/25/2024 5:09 [facility] Anion Gap 12 5 - 15 mMol/L 09/25/2024 5:09 AM [facility] Calcium 8.4(L) 8.5 - 10.5 mg/dL 09/25/2024 5:09 AM EDT [facility] Est Glomerular Filtration Rate - Female 100 mL/min/1. 73 m?? 09/25/2024 5:09 AM EDT [facility] Comment: This patient's estimated GFR [...] AM EDT Librado Patel MD CHEMISTRY ORDERABLES [facility] [place] [address] * (ABNORMAL) CBC (with Diff) (09/25/2024 4:29 AM EDT) White Blood Cell 27.24(H) 4.00 - 9.50 x10(3)/mc L 09/25/2024 4:41 AM EDT [facility] Red Blood Cell 3.57(L) 4.00 - 5.21 x10(6)/mc L 09/25/2024 4:41 AM EDT [facility] Hemoglobin 10.5(L) 11.7 - 15.5 g/dL 09/25/2024 4:41 AM EDT [facility] Hematocrit 31.9(L) 35.7 - 45.8 % 09/25/2024 4:41 AM EDT [facility] Mean Cell Volume 89.4 82.6 - 94.4 fL 09/25/2024 4:41 AM EDT [facility] Mean Cell Hemoglobin 29.4 27.1 - 32.0 pg 09/25/2024 4:41 AM [facility] Mean Cell Hemoglobin Concentration 32.9 31.7 - 35.0 g/dL 09/25/2024 4:41 AM [facility] Platelet 379(H) 145 - 357 x10(3)/mc L 09/25/2024 4:41 AM [facility] Mean Platelet Volume 10.8 7.6 - 12.9 fL 09/25/2024 4:41 AM [facility] RDW Standard Deviation 40.4 37.0 - 46.0 fL 09/25/2024 4:41 AM [facility] RDW coefficient of variation 12.5 11.5 - 14.1 % 09/25/2024 4:41 AM [facility] NRBC% auto 0.1 % 09/25/2024 4:41 AM [facility] NRBC Absolute 0.03(H) <0.01 x10(3)/mc L 09/25/2024 4:41 AM [facility] Neutrophil % 85.4 % 09/25/2024 4:41 AM [facility] Neutrophil Absolute (ANC) - Automated 23.24(H) 1.70 - 6.10 x10(3)/mc L 09/25/2024 4:41 AM [facility] Lymph % 3.7 % 09/25/2024 4:41 AM [facility] Lymph Absolute 1.02 0.90 - 3.20 x10(3)/mc L 09/25/2024 4:41 AM [facility] Monocyte % 5.4 % 09/25/2024 4:41 AM [facility] Monocyte Absolute 1.48(H) 0.30 - 0.90 x10(3)/mc L 09/25/2024 4:41 AM [facility] Eos % 0.0 % 09/25/2024 4:41 AM EDT [facility] Eos Absolute <0.04 0.00 - 0.40 x10(3)/mc L 09/25/2024 4:41 AM EDT [facility] Basophil % 0.3 % 09/25/2024 4:41 AM EDT [facility] Baso Absolute 0.08 0.00 - 0.10 x10(3)/mc L 09/25/2024 4:41 AM EDT [facility] Immature Gran % 5.2 % 4:41 AM EDT [facility] Immature Gran Absolute 1.41(H) 0.00 - 0.04 x10(3)/mc L 09/25/2024 4:41 AM EDT [facility] Blood VENOUS BLOOD SPECIMEN / Unknown Venipuncture / Unknown 09/25/2024 4:29 AM EDT 09/25/2024 4:35 AM EDT Librado Patel MD HEMATOLOGY ORDERABLE S [facility] [place] [address] * Phosphorus (09/25/2024 4:29 AM EDT) Phosphorus 3.4 2.5 - 4.5 mg/dL 09/25/2024 5:09 AM EDT [facility] Blood VENOUS BLOOD SPECIMEN / Unknown Venipuncture / Unknown 09/25/2024 4:29 AM EDT 09/25/2024 4:35 AM EDT Librado Patel MD CHEMISTRY ORDERABLES [facility] [place] [address] * POC, GLUCOSE (09/25/2024 3:46 AM EDT) Glucometer, POC 159 65 - 199 mg/dL 09/25/2024 3:47 AM EDT [facility] Comment:Supplemental ranges: <140 mg/dL before meals <180 mg/dL all other times of the day. Blood CAPILLARY BLOOD / Unknown 09/25/2024 3:46 AM EDT 09/25/2024 3:47 AM EDT Mariola Calixto MD POINT OF CARE TEST ORDERABLES [facility] [place] [address] * POC, GLUCOSE (09/24/2024 11:50 PM EDT) Glucometer, POC 145 65 - 199 mg/dL 09/24/2024 11:50 PM EDT [facility] Comment:Supplemental ranges: <140 mg/dL before meals <180 mg/dL all other times of the day. Blood CAPILLARY BLOOD / Unknown 09/24/2024 11:50 PM EDT 09/24/2024 11:50 PM EDT Mariola Calixto MD POINT OF CARE TEST ORDERABLES Performing Organization Address City/[facility]/ZIP Co de Phone Number [facility] [place] [address] * POC, GLUCOSE (09/24/2024 7:50 PM EDT) Glucometer, POC 166 65 - 199 mg/dL 09/24/2024 7:50 PM EDT [facility] Comment:Supplemental ranges: <140 mg/dL before meals <180 mg/dL all other times of the day. Blood CAPILLARY BLOOD / Unknown 09/24/2024 7:50 PM EDT 09/24/2024 7:50 PM EDT Mariola Calixto MD POINT OF CARE TEST ORDERABLES [facility] [place] [address] * (ABNORMAL) POC, GLUCOSE (09/24/2024 3:18 PM EDT) Glucometer, POC 202(H) 65 - 199 mg/dL 09/24/2024 3:18 PM EDT [facility] Comment:Supplemental ranges: <140 mg/dL before meals <180 mg/dL all other times of the day. Blood CAPILLARY BLOOD / Unknown 09/24/2024 3:18 PM EDT 09/24/2024 3:18 PM EDT Mariola Calixto MD POINT OF CARE TEST ORDERABLES Performing Organization Address City/[facility]/ZIP Co de Phone Number [facility] [place] [address] * POC, GLUCOSE (09/24/2024 11:16 AM EDT) Glucometer, POC 182 65 - 199 mg/dL 09/24/2024 11:17 AM EDT [facility] Comment:Supplemental ranges: <140 mg/dL before meals <180 mg/dL all other times of the day. Blood CAPILLARY BLOOD / Unknown 09/24/2024 11:16 AM EDT 09/24/2024 11:17 AM EDT Mariola Calixto MD POINT OF CARE TEST ORDERABLES Performing Organization Address City/[facility]/ZIP Co de Phone Number [facility] [place] [address] * POC, GLUCOSE (09/24/2024 7:39 AM EDT) Glucometer, POC 170 65 - 199 mg/dL 09/24/2024 7:39 AM EDT [facility] Comment:Supplemental ranges: <140 mg/dL before meals <180 mg/dL all other times of the day. Blood CAPILLARY BLOOD / Unknown 09/24/2024 7:39 AM EDT 09/24/2024 7:40 AM EDT Mariola Calixto MD POINT OF CARE TEST ORDERABLES [facility] [place] [address] * (ABNORMAL) Scan, Peripheral Blood (09/24/2024 5:00 AM EDT) [facility] RBC Morphology Abnormal 09/24/2024 5:47 AM EDT [facility] Platelet Estimate Normal Normal 024 5:47 AM EDT [facility] Polychromasia Present 09/24/2024 5:47 AM EDT [facility] Platelet Clumps Present(A) (none) 5:47 AM EDT [facility] WBC MORPHOLOGY See Comment(A) (none) 09/24/2024 5:47 AM EDT [facility] Comment:Hypersegmentation Blood VENOUS BLOOD SPECIMEN / Unknown 09/24/2024 5:00 AM EDT 09/24/2024 5:13 AM EDT Jah Altman APRN HEMATOLOGY ORDERAB LES Performing Organization Address City/[facility]/ZIP Co de Phone Number [facility] [place] [address] * Magnesium (09/24/2024 5:00 AM EDT) [facility] Magnesium 0.89 0.69 - 1.07 mMol/L 09/24/2024 5:50 AM EDT [facility] Blood VENOUS BLOOD SPECIMEN / Unknown 09/24/2024 5:00 AM EDT 09/24/2024 5:13 AM EDT Librado Patel MD CHEMISTRY ORDERABLES [facility] [place] [address] * (ABNORMAL) Basic Metabolic Panel (09/24/2024 5:00 AM EDT) Glucose 202(H) 65 - 199 mg/dL 09/24/2024 5:50 AM [facility] Comment:Glucose Concentratio n >=200 mg/dL plus symptoms is consistent with Diabetes Mellitus. Blood Urea Nitrogen 28(H) 8 - 18 mg/dL 09/24/2024 5:50 AM [facility] Creatinine 0.51(L) 0.70 - 1.20 mg/dL 09/24/2024 5:50 AM [facility] Sodium 138 135 - 145 mMol/L 09/24/2024 5:50 AM [facility] Potassium 4.2 3.5 - 5.0 mMol/L 09/24/2024 5:50 AM [facility] Chloride 102 98 - 107 mMol/L 09/24/2024 5:50 AM [facility] Carbon Dioxide 26 22 - 31 mMol/L 09/24/2024 5:50 AM [facility] Anion Gap 10 5 - 15 mMol/L 09/24/2024 5:50 AM [facility] Calcium 8.5 8.5 - 10.5 mg/dL 09/24/2024 5:50 AM [facility] Est Glomerular Filtration Rate - Female 99 mL/min/1. 73 m?? 09/24/2024 5:50 AM [facility] Comment: This patient's estimated GFR was [...] AM EDT Librado Patel MD CHEMISTRY ORDERABLES [facility] [place] [address] * (ABNORMAL) CBC (with Diff) (09/24/2024 5:00 AM EDT) White Blood Cell 19.25(H) 4.00 - 9.50 x10(3)/mc L 09/24/2024 5:47 AM EDT [facility] Red Blood Cell 3.34(L) 4.00 - 5.21 x10(6)/mc L 09/24/2024 5:47 AM EDT [facility] Hemoglobin 9.7(L) 11.7 - 15.5 g/dL 09/24/2024 5:47 AM EDT [facility] Hematocrit 30.6(L) 35.7 - 45.8 % 09/24/2024 5:47 AM EDT [facility] Mean Cell Volume 91.6 82.6 - 94.4 fL 09/24/2024 5:47 AM EDT [facility] Mean Cell Hemoglobin 29.0 27.1 - 32.0 pg 09/24/2024 5:47 AM EDT [facility] Mean Cell Hemoglobin Concentration 31.7 31.7 - 35.0 g/dL 09/24/2024 5:47 AM EDT [facility] Platelet 342 145 - 357 x10(3)/mc L 09/24/2024 5:47 AM EDT [facility] Mean Platelet Volume 11.0 7.6 - 12.9 fL 09/24/2024 5:47 AM EDT [facility] RDW Standard Deviation 41.1 37.0 - 46.0 fL 09/24/2024 5:47 AM EDT [facility] RDW coefficient of variation 12.5 11.5 - 14.1 % 09/24/2024 5:47 AM EDT [facility] NRBC% auto 0.1 % 09/24/2024 5:47 AM [facility] NRBC Absolute 0.02(H) <0.01 x10(3)/mc L 09/24/2024 5:47 AM [facility] Neutrophil % 84.6 % 09/24/2024 5:47 AM [facility] Comment:This is an appended report. These results have been appended to a previously preliminary verified report. Neutrophil Absolute (ANC) - Automated 16.30(H) 1.70 - 6.10 x10(3)/mc L 09/24/2024 5:47 AM [facility] Comment:This is an appended report. These results have been appended to a previously preliminary verified report. Lymph % 3.0 % 09/24/2024 5:47 AM [facility] Comment:This is an appended report. These results have been appended to a previously preliminary verified report. Lymph Absolute 0.57(L) 0.90 - 3.20 x10(3)/mc L 09/24/2024 5:47 AM [facility] Comment:This is an appended report. These results have been appended to a previously preliminary verified report. Monocyte % 7.0 % 09/24/2024 5:47 AM [facility] Comment:This is an appended report. These results have been appended to a previously preliminary verified report. Monocyte Absolute 1.35(H) 0.30 - 0.90 x10(3)/mc L 09/24/2024 5:47 AM [facility] Comment:This is an appended report. These results have been appended to a previously preliminary verified report. Eos % 0.0 % 09/24/2024 5:47 AM [facility] Comment:This is an appended report. These results have been appended to a previously preliminary verified report. Eos Absolute <0.04 0.00 - 0.40 x10(3)/mc L 09/24/2024 5:47 AM [facility] Comment:This is an appended report. These results have been appended to a previously preliminary verified report. Basophil % 0.2 % 09/24/2024 5:47 AM EDT [facility] Comment:This is an appended report. These results have been appended to a previously preliminary verified report. Baso Absolute <0.04 0.00 - 0.10 x10(3)/mc L 09/24/2024 5:47 AM EDT [facility] Comment:This is an appended report. These results have been appended to a previously preliminary verified report. Immature Gran % 5.2 % 5:47 AM EDT [facility] Comment:This is an appended report. These results have been appended to a previously preliminary verified report. Immature Gran Absolute 1.00(H) 0.00 - 0.04 x10(3)/mc L 09/24/2024 5:47 AM EDT [facility] Comment:This is an appended report. These results have been appended to a previously preliminary verified report. Blood VENOUS BLOOD SPECIMEN / Unknown 09/24/2024 5:00 AM EDT 09/24/2024 5:13 AM EDT Librado Patel MD HEMATOLOGY ORDERABLE S [facility] [place] [address] * Phosphorus (09/24/2024 5:00 AM EDT) Phosphorus 3.7 2.5 - 4.5 mg/dL 09/24/2024 5:50 AM EDT [facility] Blood VENOUS BLOOD SPECIMEN / Unknown 09/24/2024 5:00 AM EDT 09/24/2024 5:13 AM EDT Librado Patel MD CHEMISTRY ORDERABLES [facility] [place] [address] * (ABNORMAL) POC, GLUCOSE (09/24/2024 4:05 AM EDT) Glucometer, POC 210(H) 65 - 199 mg/dL 09/24/2024 4:05 AM EDT [facility] Comment:Supplemental ranges: <140 mg/dL before meals <180 mg/dL all other times of the day. Blood CAPILLARY BLOOD / Unknown 09/24/2024 4:05 AM EDT 09/24/2024 4:05 AM EDT Mariola Calixto MD POINT OF CARE TEST ORDERABLES Performing Organization Address City/[facility]/ZIP Co de Phone Number [facility] [place] [address] * POC, GLUCOSE (09/23/2024 11:57 PM EDT) Glucometer, POC 179 65 - 199 mg/dL 09/23/2024 11:57 PM EDT [facility] Comment:Supplemental ranges: <140 mg/dL before meals <180 mg/dL all other times of the day. Blood CAPILLARY BLOOD / Unknown 09/23/2024 11:57 PM EDT 09/23/2024 11:58 PM EDT Mariola Calixto MD POINT OF CARE TEST ORDERABLES [facility] [place] [address] * POC, GLUCOSE (09/23/2024 7:59 PM EDT) Glucometer, POC 179 65 - 199 mg/dL 09/23/2024 8:00 PM EDT [facility] Comment:Supplemental ranges: <140 mg/dL before meals <180 mg/dL all other times of the day. Blood CAPILLARY BLOOD / Unknown 09/23/2024 7:59 PM EDT 09/23/2024 8:00 PM EDT Mariola Calixto MD POINT OF CARE TEST ORDERABLES [facility] [place] [address] * Potassium (09/23/2024 4:23 PM EDT) Potassium 4.3 3.5 - 5.0 mMol/L 09/23/2024 5:09 PM EDT [facility] Blood VENOUS BLOOD SPECIMEN / Unknown Venipuncture / Unknown 09/23/2024 4:23 PM EDT 09/23/2024 4:39 PM EDT Librado Patel MD CHEMISTRY ORDERABLES Performing Organization Address City/[facility]/ZIP Co de Phone Number [facility] [place] [address] * POC, GLUCOSE (09/23/2024 3:53 PM EDT) Glucometer, POC 167 65 - 199 mg/dL 09/23/2024 3:53 PM EDT [facility] Comment:Supplemental ranges: <140 mg/dL before meals <180 mg/dL all other times of the day. Blood CAPILLARY BLOOD / Unknown 09/23/2024 3:53 PM EDT 09/23/2024 3:53 PM EDT Mariola Calixto MD POINT OF CARE TEST ORDERABLES Performing Organization Address City/[facility]/ZIP Co de Phone Number [facility] [place] [address] * POC, GLUCOSE (09/23/2024 11:30 AM EDT) Glucometer, POC 162 65 - 199 mg/dL 09/23/2024 11:30 AM EDT [facility] Comment:Supplemental ranges: <140 mg/dL before meals <180 mg/dL all other times of the day. Blood CAPILLARY BLOOD / Unknown 09/23/2024 11:30 AM EDT 09/23/2024 11:30 AM EDT Mariola Calixto MD POINT OF CARE TEST ORDERABLES Performing Organization Address City/[facility]/ZIP Co de Phone Number [facility] [place] [address] * (ABNORMAL) Urinalysis Microscopic (09/23/2024 10:29 AM EDT) Budding Yeast, Urine Many(A) None /HPF 09/23/2024 11:18 AM EDT [facility] Hyphae Yeast, Urine Many(A) None /HPF 09/23/2024 11:18 AM EDT [facility] RBC, Urine 9(H) 0 - 4 /HPF 09/23/2024 11:18 AM EDT [facility] WBC, Urine 14(H) 0 - 5 /HPF 09/23/2024 11:18 AM EDT [facility] Squamous Epithelial Cells, Urine 2 0 - 5 /HPF 09/23/2024 11:18 AM EDT [facility] Hyaline Casts, Urine 1 0 - 2 /LPF 09/23/2024 11:18 AM EDT [facility] Comment 09/23/2024 11:18 AM EDT [facility] Comment:Interpret results wi th caution, microscopic results are from a suboptimal specimen. Bacteria, Urine Few(A) None /HPF 11:18 AM EDT [facility] Urine URINE SPECIMEN OBTAINED BY CLEAN CATCH PROCEDURE / Unknown Non Blood Collection / Unknown 09/23/2024 10:29 AM EDT 09/23/2024 10:38 AM EDT Mariola Calixto MD URINE ORDERABLES Performing Organization Address City/[facility]/ZIP Co de Phone Number [facility] [place] [address] * Urinalysis Microscopic Exam (09/23/2024 10:29 AM EDT) Urine Non Blood Collection / Unknown 09/23/2024 10:29 AM EDT 09/23/2024 10:38 AM EDT Mariola Calixto MD URINE ORDERABLES [facility] [place] [address] * (ABNORMAL) Urinalysis Dipstick (09/23/2024 10:29 AM EDT) Glucose, Urine Dipstick Negative Negative 09/23/2024 11:18 AM EDT [facility] Protein, Urine Dipstick Negative Negative 09/23/2024 11:18 AM EDT [facility] Bilirubin, Urine Dipstick Negative Negative 09/23/2024 11:18 [facility] Comment:Clinical correlation required for positive Urine Bilirubin results as false positive may occur with some drugs and drug related products. If a false positive is suspected a serum total bilirubin should be considered if clinically indicated. Urobilinogen, Urine Dipstick Normal Normal, 0.2 mg/dL, 1.0 mg/dL 09/23/2024 11:18 AM [facility] pH, Urine (dipstick) 6.5 5.0 - 8.0 09/23/2024 11:18 AM [facility] Blood, Urine Dipstick Moderate(A) Negative 09/23/2024 11:18 AM [facility] Ketone, Urine Dipstick Negative Negative 09/23/2024 11:18 AM [facility] Nitrite, Urine Dipstick Negative Negative 09/23/2024 11:18 AM [facility] Leukocytes, Urine Dipstick Small(A) Negative 09/23/2024 11:18 AM [facility] Specific [place] Urine Automated 1.019 1.005 - 1.030 09/23/2024 11:18 AM [facility] Appearance, Urine Dipstick Cloudy(A) Clear 09/23/2024 11:18 AM EDT [facility] Color, Urine Dipstick Yellow Yellow, Dark Yellow 09/23/2024 11:18 AM EDT [facility] CULTURE ADDED? 09/23/2024 11:18 AM EDT [facility] Urine Non Blood Collection / Unknown 09/23/2024 10:29 AM EDT 09/23/2024 10:38 AM EDT Mariola Calixto MD URINE ORDERABLES [facility] [place] [address] * (ABNORMAL) Respiratory Culture, Quantitative (09/23/2024 10:26 AM EDT) Quantitative Bacterial Culture >100,000 CFU/mL Streptococcus anginosus group(A) VITEK 2 METHOD 09/25/2024 8:52 AM EDT [facility] Quantitative Bacterial Culture 50 CFU/mL mixed bacterial morphotypes suggestive of normal upper respiratory franco VITEK 2 METHOD 09/25/2024 8:52 AM EDT [facility] Gram Stain Cytocentrifuge Gram Stain performed(A) 09/25/2024 8:52 AM EDT [facility] Gram Stain neutrophils(A) 09/25/2024 8:52 AM EDT [facility] Gram Stain Moderate Gram negative rods(A) 09/25/2024 8:52 AM EDT [facility] Gram Stain Many Mixed bacterial morphotypes suggestive of normal upper respiratory franco(A) 09/25/2024 8:52 AM EDT [facility] Bronchial Alveolar Lavage STRUCTURE OF LOWER LOBE OF LEFT LUNG / Unknown 09/23/2024 10:26 AM EDT 09/23/2024 11:30 AM EDT Mariola Calixto MD MICROBIOLOGY - GEN ERAL ORDERABLES Performing Organization Address City/[facility]/ZIP Co de Phone Number [facility] [place] [address] * (ABNORMAL) Hepatic Function Panel (09/23/2024 7:56 AM EDT) Albumin 3.0(L) 3.2 - 5.2 g/dL 09/23/2024 10:04 AM EDT [facility] Aspartate Aminotransferase 18 <=30 unit/L 09/23/2024 10:04 AM EDT [facility] Alanine Aminotransferase 56(H) 0 - 30 unit/L 09/23/2024 10:04 AM EDT [facility] Alkaline Phosphatase 80 35 - 105 unit/L 09/23/2024 10:04 AM EDT [facility] Bilirubin, Total 0.3 <=1.3 mg/dL 09/23/2024 10:04 AM EDT [facility] Bilirubin, Direct <0.2 0.0 - 0.3 mg/dL 09/23/2024 10:04 AM EDT [facility] Protein, Total 5.8(L) 6.1 - 8.0 g/dL 09/23/2024 10:04 AM EDT [facility] Blood VENOUS BLOOD SPECIMEN / Unknown IP Care Team Draw / Unknown 09/23/2024 7:56 AM EDT 09/23/2024 8:23 AM EDT Mariola Calixto MD CHEMISTRY ORDERABL ES [facility] [place] [address] * Potassium (09/23/2024 7:56 AM EDT) Potassium 3.9 3.5 - 5.0 mMol/L 09/23/2024 9:26 AM EDT [facility] Blood VENOUS BLOOD SPECIMEN / Unknown IP Care Team Draw / Unknown 09/23/2024 7:56 AM EDT 09/23/2024 8:23 AM EDT Librado Patel MD CHEMISTRY ORDERABLES Performing Organization Address [facility] Co de Phone Number [facility] [place] [address] * POC, GLUCOSE (09/23/2024 7:41 AM EDT) Glucometer, POC 169 65 - 199 mg/dL 09/23/2024 7:42 AM EDT [facility] Comment:Supplemental ranges: <140 mg/dL before meals <180 mg/dL all other times of the day. Blood CAPILLARY BLOOD / Unknown 09/23/2024 7:41 AM EDT 09/23/2024 7:42 AM EDT Mariola Calixto MD POINT OF CARE TEST ORDERABLES Performing Organization Address [facility] Co de Phone Number [facility] [place] [address] * POC, GLUCOSE (09/23/2024 7:15 AM EDT) Glucometer, POC 167 65 - 199 mg/dL 09/23/2024 7:15 AM EDT [facility] Comment:Supplemental ranges: <140 mg/dL before meals <180 mg/dL all other times of the day. Blood CAPILLARY BLOOD / Unknown 09/23/2024 7:15 AM EDT 09/23/2024 7:15 AM EDT Mariola Calixto MD POINT OF CARE TEST ORDERABLES Performing Organization Address City/[facility]/ZIP Co de Phone Number [facility] [place] [address] * (ABNORMAL) POC, GLUCOSE (09/23/2024 4:11 AM EDT) Glucometer, POC 209(H) 65 - 199 mg/dL 09/23/2024 4:11 AM EDT [facility] Comment:Supplemental ranges: <140 mg/dL before meals <180 mg/dL all other times of the day. Blood CAPILLARY BLOOD / Unknown 09/23/2024 4:11 AM EDT 09/23/2024 4:11 AM EDT Mariola Calixto MD POINT OF CARE TEST ORDERABLES Performing Organization Address City/[facility]/ZIP Co de Phone Number [facility] [place] [address] * Phosphorus (09/23/2024 1:01 AM EDT) Phosphorus 3.2 2.5 - 4.5 mg/dL 09/23/2024 1:43 AM EDT [facility] Blood VENOUS BLOOD SPECIMEN / Unknown IP Care Team Draw / Unknown 09/23/2024 1:01 AM EDT 09/23/2024 1:15 AM EDT Librado Patel MD CHEMISTRY ORDERABLES Performing Organization Address [facility] Co de Phone Number [facility] [place] [address] * Magnesium (09/23/2024 1:01 AM EDT) Magnesium 0.85 0.69 - 1.07 mMol/L 09/23/2024 1:43 AM EDT [facility] Blood VENOUS BLOOD SPECIMEN / Unknown IP Care Team Draw / Unknown 09/23/2024 1:01 AM EDT 09/23/2024 1:15 AM EDT Librado Patel MD CHEMISTRY ORDERABLES Performing Organization Address City/[facility]/ZIP Co de Phone Number [facility] [place] [address] * (ABNORMAL) Basic Metabolic Panel (09/23/2024 1:01 AM EDT) Glucose 211(H) 65 - 199 mg/dL 09/23/2024 1:43 AM EDT [facility] Comment:Glucose Concentratio n >=200 mg/dL plus symptoms is consistent with Diabetes Mellitus. Blood Urea Nitrogen 26(H) 8 - 18 mg/dL 09/23/2024 1:43 AM [facility] Creatinine 0.47(L) 0.70 - 1.20 mg/dL 09/23/2024 1:43 AM [facility] Sodium 138 135 - 145 mMol/L 09/23/2024 1:43 AM [facility] Potassium 3.9 3.5 - 5.0 mMol/L 09/23/2024 1:43 AM [facility] Chloride 103 98 - 107 mMol/L 09/23/2024 1:43 AM [facility] Carbon Dioxide 25 22 - 31 mMol/L 09/23/2024 1:43 AM [facility] Anion Gap 10 5 - 15 mMol/L 09/23/2024 1:43 AM [facility] Calcium 8.7 8.5 - 10.5 mg/dL 09/23/2024 1:43 AM [facility] Est Glomerular Filtration Rate - Female 101 mL/min/1. 73 m?? 09/23/2024 1:43 AM [facility] Comment: This patient's estimated GFR was [...] AM EDT Librado Patel MD CHEMISTRY ORDERABLES [facility] [place] [id number] * (ABNORMAL) CBC (with Diff) (09/23/2024 1:01 AM EDT) White Blood Cell 19.97(H) 4.00 - 9.50 x10(3)/mc L 09/23/2024 1:19 AM EDT [facility] Red Blood Cell 3.37(L) 4.00 - 5.21 x10(6)/mc L 09/23/2024 1:19 AM EDT [facility] Hemoglobin 10.0(L) 11.7 - 15.5 g/dL 09/23/2024 1:19 AM [facility] Hematocrit 30.1(L) 35.7 - 45.8 % 09/23/2024 1:19 AM [facility] Mean Cell Volume 89.3 82.6 - 94.4 fL 09/23/2024 1:19 AM [facility] Mean Cell Hemoglobin 29.7 27.1 - 32.0 pg 09/23/2024 1:19 AM [facility] Mean Cell Hemoglobin Concentration 33.2 31.7 - 35.0 g/dL 09/23/2024 1:19 AM [facility] Platelet 293 145 - 357 x10(3)/mc L 09/23/2024 1:19 AM [facility] Mean Platelet Volume 10.9 7.6 - 12.9 fL 09/23/2024 1:19 AM [facility] RDW Standard Deviation 39.9 37.0 - 46.0 fL 09/23/2024 1:19 AM [facility] RDW coefficient of variation 12.4 11.5 - 14.1 % 09/23/2024 1:19 AM [facility] NRBC% auto 0.1 % 09/23/2024 1:19 AM [facility] NRBC Absolute 0.02(H) <0.01 x10(3)/mc L 09/23/2024 1:19 AM [facility] Neutrophil % 84.1 % 09/23/2024 1:19 AM [facility] Neutrophil Absolute (ANC) - Automated 16.80(H) 1.70 - 6.10 x10(3)/mc L 09/23/2024 1:19 AM [facility] Lymph % 3.4 % 09/23/2024 1:19 AM [facility] Lymph Absolute 0.67(L) 0.90 - 3.20 x10(3)/mc L 09/23/2024 1:19 AM [facility] Monocyte % 8.6 % 09/23/2024 1:19 AM [facility] Monocyte Absolute 1.72(H) 0.30 - 0.90 x10(3)/mc L 09/23/2024 1:19 AM [facility] Eos % 0.0 % 09/23/2024 1:19 AM [facility] Eos Absolute <0.04 0.00 - 0.40 x10(3)/mc L 09/23/2024 1:19 AM [facility] Basophil % 0.2 % 09/23/2024 1:19 AM [facility] Baso Absolute 0.04 0.00 - 0.10 x10(3)/mc L 09/23/2024 1:19 AM [facility] Immature Gran % 3.7 % 1:19 AM [facility] Immature Gran Absolute 0.74(H) 0.00 - 0.04 x10(3)/mc L 09/23/2024 1:19 AM [facility] Blood VENOUS BLOOD SPECIMEN / Unknown IP Care Team Draw / Unknown 09/23/2024 1:01 AM EDT 09/23/2024 1:15 AM EDT Librado Patel MD HEMATOLOGY ORDERABLE S [facility] [place] [address] * (ABNORMAL) POC, GLUCOSE (09/23/2024 12:47 AM EDT) Glucometer, POC 200(H) 65 - 199 mg/dL 09/23/2024 12:47 AM EDT [facility] Comment:Supplemental ranges: <140 mg/dL before meals <180 mg/dL all other times of the day. Blood CAPILLARY BLOOD / Unknown 09/23/2024 12:47 AM EDT 09/23/2024 12:47 AM EDT Mariola Calixto MD POINT OF CARE TEST ORDERABLES Performing Organization Address City/[facility]/ZIP Co de Phone Number [facility] [place] [address] * POC, GLUCOSE (09/22/2024 11:40 PM EDT) Glucometer, POC 181 65 - 199 mg/dL 09/22/2024 11:40 PM EDT [facility] Comment:Supplemental ranges: <140 mg/dL before meals <180 mg/dL all other times of the day. Blood CAPILLARY BLOOD / Unknown 09/22/2024 11:40 PM EDT 09/22/2024 11:40 PM EDT Mariola Calixto MD POINT OF CARE TEST ORDERABLES [facility] [place] [address] * POC, GLUCOSE (09/22/2024 9:02 PM EDT) Glucometer, POC 159 65 - 199 mg/dL 09/22/2024 9:02 PM EDT [facility] Comment:Supplemental ranges: <140 mg/dL before meals <180 mg/dL all other times of the day. Blood CAPILLARY BLOOD / Unknown 09/22/2024 9:02 PM EDT 09/22/2024 9:02 PM EDT Mariola Calixto MD POINT OF CARE TEST ORDERABLES Performing Organization Address City/[facility] Co de Phone Number [facility] [place] [address] * POC, GLUCOSE (09/22/2024 7:38 PM EDT) Glucometer, POC 162 65 - 199 mg/dL 09/22/2024 7:38 PM EDT [facility] Comment:Supplemental ranges: <140 mg/dL before meals <180 mg/dL all other times of the day. Blood CAPILLARY BLOOD / Unknown 09/22/2024 7:38 PM EDT 09/22/2024 7:38 PM EDT Mariola Calixto MD POINT OF CARE TEST ORDERABLES Performing Organization Address [facility] Co de Phone Number [facility] [place] [address] * POC, GLUCOSE (09/22/2024 3:52 PM EDT) Glucometer, POC 189 65 - 199 mg/dL 09/22/2024 3:52 PM EDT [facility] Comment:Supplemental ranges: <140 mg/dL before meals <180 mg/dL all other times of the day. Blood CAPILLARY BLOOD / Unknown 09/22/2024 3:52 PM EDT 09/22/2024 3:52 PM EDT Mariola Calixto MD POINT OF CARE TEST ORDERABLES Performing Organization Address City/[facility]/ZIP Co de Phone Number [facility] [place] [address] * POC, GLUCOSE (09/22/2024 11:56 AM EDT) Glucometer, POC 181 65 - 199 mg/dL 09/22/2024 11:56 AM EDT [facility] Comment:Supplemental ranges: <140 mg/dL before meals <180 mg/dL all other times of the day. Blood CAPILLARY BLOOD / Unknown 09/22/2024 11:56 AM EDT 09/22/2024 11:57 AM EDT Mariola Calixto MD POINT OF CARE TEST ORDERABLES Performing Organization Address City/[facility]/ZIP Co de Phone Number [facility] [place] [address] * MRSA PCR Screen (09/22/2024 11:43 AM EDT) [facility] MRSA PCR Not Detected 09/22/2024 2:13 PM EDT [facility] Swab SPECIMEN FROM NASOPHARYNGEAL STRUCTURE / Unknown Non Blood Collection / Unknown 09/22/2024 11:43 AM EDT 09/22/2024 11:52 AM EDT Narrative [facility] - 09/22/2024 2:13 PM EDT This test was performed using the Xpert MRSA NxG test kit and is run on the [employer] GeneXpert Dx System. This test is cleared by the U.S. Food and Drug Administration for clinical use and its performance characteristics have been verified by the [facility] at [facility]. This test was performed using the Xpert MRSA NxG test kit and is run on the [employer] GeneXpert Dx System. This test is cleared by the U.S. Food and Drug Administration for clinical use and its performance characteristics have been verified by the [facility] at [facility]. Mariola Calixto MD MOLECULAR ORDERABL ES Performing Organization Address City/[facility]/ZIP Co de Phone Number [facility] [place] [address] * POC, GLUCOSE (09/22/2024 7:52 AM EDT) Glucometer, POC 178 65 - 199 mg/dL 09/22/2024 7:52 AM EDT [facility] Comment:Supplemental ranges: <140 mg/dL before meals <180 mg/dL all other times of the day. Blood CAPILLARY BLOOD / Unknown 09/22/2024 7:52 AM EDT 09/22/2024 7:52 AM EDT Mariola Calixto MD POINT OF CARE TEST ORDERABLES Performing Organization Address [facility] Co de Phone Number [facility] [place] [address] * (ABNORMAL) POC, GLUCOSE (09/22/2024 4:53 AM EDT) Glucometer, POC 204(H) 65 - 199 mg/dL 09/22/2024 4:54 AM EDT [facility] Comment:Supplemental ranges: <140 mg/dL before meals <180 mg/dL all other times of the day. Blood CAPILLARY BLOOD / Unknown 09/22/2024 4:53 AM EDT 09/22/2024 4:54 AM EDT Mariola Calixto MD POINT OF CARE TEST ORDERABLES Performing Organization Address [facility] de Phone Number [facility] [place] [address] * CT Head wo Contrast (Generic) (09/22/2024 4:02 AM EDT) Pathologist [employer] WORKSTATION ID [id number] DH RAD Anatomical Region Laterality Modality Head [...] who have questions please contact the health cna caregiver that requested your imaging first. ? Narrative [...] patients who have questions please contactthe health cna caregiver that requested your imaging first. Mariola Calixto MD IMG CT ORDERABLES * Phosphorus (09/22/2024 1:26 AM EDT) Pathologist [facility] Phosphorus 3.7 2.5 - 4.5 mg/dL 09/22/2024 1:59 AM EDT [facility] Blood VENOUS BLOOD SPECIMEN / Unknown IP Care Team Draw / Unknown 09/22/2024 1:26 AM EDT 09/22/2024 1:31 AM EDT Librado Patel MD CHEMISTRY ORDERABLES [facility] [place] [address] * Magnesium (09/22/2024 1:26 AM EDT) Magnesium 0.87 0.69 - 1.07 mMol/L 09/22/2024 1:59 AM EDT [facility] Blood VENOUS BLOOD SPECIMEN / Unknown IP Care Team Draw / Unknown 09/22/2024 1:26 AM EDT 09/22/2024 1:31 AM EDT Librado Patel MD CHEMISTRY ORDERABLES [facility] [place] [address] * (ABNORMAL) Basic Metabolic Panel (09/22/2024 1:26 AM EDT) Glucose 228(H) 65 - 199 mg/dL 09/22/2024 1:59 AM EDT [facility] Comment:Glucose Concentratio n >=200 mg/dL plus symptoms is consistent with Diabetes Mellitus. Blood Urea Nitrogen 26(H) 8 - 18 mg/dL 09/22/2024 1:59 AM EDT [facility] Creatinine 0.53(L) 0.70 - 1.20 mg/dL 09/22/2024 1:59 AM EDT [facility] Sodium 139 135 - 145 mMol/L 09/22/2024 1:59 AM EDT [facility] Potassium 4.0 3.5 - 5.0 mMol/L 09/22/2024 1:59 AM EDT [facility] Chloride 104 98 - 107 mMol/L 09/22/2024 1:59 AM EDT [facility] Carbon Dioxide 23 22 - 31 mMol/L 09/22/2024 1:59 AM EDT [facility] Anion Gap 12 5 - 15 mMol/L 09/22/2024 1:59 AM EDT [facility] Calcium 8.8 8.5 - 10.5 mg/dL 09/22/2024 1:59 AM EDT [facility] Est Glomerular Filtration Rate - Female 98 mL/min/1. 73 m?? 09/22/2024 1:59 AM EDT [facility] Comment: This patient's estimated GFR [...] AM EDT Librado Patel MD CHEMISTRY ORDERABLES [facility] [place] [address] * (ABNORMAL) CBC (with Diff) (09/22/2024 1:26 AM EDT) White Blood Cell 16.65(H) 4.00 - 9.50 x10(3)/mc L 09/22/2024 1:35 AM EDT [facility] Red Blood Cell 3.30(L) 4.00 - 5.21 x10(6)/mc L 09/22/2024 1:35 AM EDT [facility] Hemoglobin 9.9(L) 11.7 - 15.5 g/dL 09/22/2024 1:35 AM EDT [facility] Hematocrit 29.4(L) 35.7 - 45.8 % 09/22/2024 1:35 AM EDT [facility] Mean Cell Volume 89.1 82.6 - 94.4 fL 09/22/2024 1:35 AM EDT [facility] Mean Cell Hemoglobin 30.0 27.1 - 32.0 pg 09/22/2024 1:35 AM EDT [facility] Mean Cell Hemoglobin Concentration 33.7 31.7 - 35.0 g/dL 09/22/2024 1:35 AM [facility] Platelet 274 145 - 357 x10(3)/mc L 09/22/2024 1:35 AM [facility] Mean Platelet Volume 11.1 7.6 - 12.9 fL 09/22/2024 1:35 AM [facility] RDW Standard Deviation 39.8 37.0 - 46.0 fL 09/22/2024 1:35 AM [facility] RDW coefficient of variation 12.3 11.5 - 14.1 % 09/22/2024 1:35 AM [facility] NRBC% auto 0.0 % 09/22/2024 1:35 AM [facility] NRBC Absolute <0.01 <0.01 x10(3)/mc L 09/22/2024 1:35 AM [facility] Neutrophil % 89.9 % 09/22/2024 1:35 AM [facility] Neutrophil Absolute (ANC) - Automated 14.97(H) 1.70 - 6.10 x10(3)/mc L 09/22/2024 1:35 AM [facility] Lymph % 3.0 % 09/22/2024 1:35 AM [facility] Lymph Absolute 0.50(L) 0.90 - 3.20 x10(3)/mc L 09/22/2024 1:35 AM [facility] Monocyte % 5.6 % 09/22/2024 1:35 AM [facility] Monocyte Absolute 0.93(H) 0.30 - 0.90 x10(3)/mc L 09/22/2024 1:35 AM [facility] Eos % 0.0 % 09/22/2024 1:35 AM [facility] Eos Absolute <0.04 0.00 - 0.40 x10(3)/mc L 09/22/2024 1:35 AM EDT [facility] Basophil % 0.1 % 09/22/2024 1:35 AM EDT [facility] Baso Absolute <0.04 0.00 - 0.10 x10(3)/mc L 09/22/2024 1:35 AM EDT [facility] Immature Gran % 1.4 % 1:35 AM EDT [facility] Immature Gran Absolute 0.23(H) 0.00 - 0.04 x10(3)/mc L 09/22/2024 1:35 AM EDT [facility] Blood VENOUS BLOOD SPECIMEN / Unknown IP Care Team Draw / Unknown 09/22/2024 1:26 AM EDT 09/22/2024 1:31 AM EDT Librado Patel MD HEMATOLOGY ORDERABLE S [facility] [place] [address] * POC, GLUCOSE (09/21/2024 11:37 PM EDT) Glucometer, POC 191 65 - 199 mg/dL 09/21/2024 11:38 PM EDT [facility] Comment:Supplemental ranges: <140 mg/dL before meals <180 mg/dL all other times of the day. Blood CAPILLARY BLOOD / Unknown 09/21/2024 11:37 PM EDT 09/21/2024 11:38 PM EDT Mariola Calixto MD POINT OF CARE TEST ORDERABLES [facility] [place] [address] * POC, GLUCOSE (09/21/2024 7:52 PM EDT) Glucometer, POC 175 65 - 199 mg/dL 09/21/2024 7:52 PM EDT [facility] Comment:Supplemental ranges: <140 mg/dL before meals <180 mg/dL all other times of the day. Blood CAPILLARY BLOOD / Unknown 09/21/2024 7:52 PM EDT 09/21/2024 7:53 PM EDT Mariola Calixto MD POINT OF CARE TEST ORDERABLES Performing Organization Address City/[facility]/ZIP Co de Phone Number [facility] [place] [address] * POC, GLUCOSE (09/21/2024 4:03 PM EDT) Glucometer, POC 165 65 - 199 mg/dL 09/21/2024 4:03 PM EDT [facility] Comment:Supplemental ranges: <140 mg/dL before meals <180 mg/dL all other times of the day. Blood CAPILLARY BLOOD / Unknown 09/21/2024 4:03 PM EDT 09/21/2024 4:03 PM EDT Mariola Calixto MD POINT OF CARE TEST ORDERABLES Performing Organization Address City/[facility] Co de Phone Number [facility] [place] [address] * XR Chest One View (09/21/2024 2:01 PM EDT) WORKSTATION ID [id number] DH RAD Anatomical Region Laterality Modality Chest [...] who have questions please contact the health cna caregiver that requested your imaging first. ? Narrative 09/21/2024 5:09 PM EDT EXAMINATION: XR [...] patients who have questions please contactthe health cna caregiver that requested your imaging first. Mariola Calixto MD IMG DX ORDERABLES * XR Abdomen 1 view (Generic) (09/21/2024 2:01 PM EDT) WORKSTATION ID [id number] [facility] Anatomical Region Laterality Modality Abdomen N/A Digital [...] who have questions please contact the health cna caregiver that requested your imaging first. ? Narrative 09/21/2024 3:40 PM EDT EXAMINATION: XR ABDOMEN 1 VIEW (GENERIC) CLINICAL HISTORY: Verify tube placement (as entered by ordering provider in the order requisition) TECHNIQUE: Portable supine AP view of the left abdomen. ??The upper abdomen, lower abdomen, pelvis, and right lateral margin of the abdomen are excluded from the imaged [id number]. COMPARISON: 09/18/2024 FINDINGS: The lower chest and [...] of the abdomen are excluded from theimaged [id number]. COMPARISON: 09/18/2024 FINDINGS: The lower chest and [...] patients who have questions please contactthe health cna caregiver that requested your imaging first. Mariola Calixto [...] intubation status comments: First attempt by this medical technical writer. Encountered lots of oral secretions with [...] - 199 mg/dL 09/21/2024 11:13 AM EDT [facility] Comment:Supplemental ranges: <140 mg/dL before meals <180 mg/dL all other times of the day. Blood CAPILLARY BLOOD / Unknown 09/21/2024 11:13 AM EDT 09/21/2024 11:13 AM EDT Mariola Calixto MD POINT OF CARE TEST ORDERABLES Performing Organization Address City/[facility] Co de Phone Number [facility] [place] [address] * POC, GLUCOSE (09/21/2024 7:46 AM EDT) Glucometer, POC 167 65 - 199 mg/dL 09/21/2024 7:47 AM EDT [facility] Comment:Supplemental ranges: <140 mg/dL before meals <180 mg/dL all other times of the day. Blood CAPILLARY BLOOD / Unknown 09/21/2024 7:46 AM EDT 09/21/2024 7:47 AM EDT Mariola Calixto MD POINT OF CARE TEST ORDERABLES [facility] [place] [address] * POC, GLUCOSE (09/21/2024 7:26 AM EDT) Glucometer, POC 166 65 - 199 mg/dL 09/21/2024 7:27 AM EDT [facility] Comment:Supplemental ranges: <140 mg/dL before meals <180 mg/dL all other times of the day. Blood CAPILLARY BLOOD / Unknown 09/21/2024 7:26 AM EDT 09/21/2024 7:27 AM EDT Mariola Calixto MD POINT OF CARE TEST ORDERABLES Performing Organization Address City/[facility]/ZIP Co de Phone Number [facility] [place] [address] * POC, GLUCOSE (09/21/2024 4:53 AM EDT) Glucometer, POC 176 65 - 199 mg/dL 09/21/2024 4:54 AM EDT [facility] Comment:Supplemental ranges: <140 mg/dL before meals <180 mg/dL all other times of the day. Blood CAPILLARY BLOOD / Unknown 09/21/2024 4:53 AM EDT 09/21/2024 4:54 AM EDT Mariola Calixto MD POINT OF CARE TEST ORDERABLES Performing Organization Address [facility] Co de Phone Number [facility] [place] [phone] * CT Head wo Contrast (Generic) (09/21/2024 3:50 AM EDT) WORKSTATION ID [id number] RAD Anatomical Region Laterality Modality Head Computed [...] who have questions please contact the health cna caregiver that requested your imaging first. ? Narrative [...] patients who have questions please contactthe health cna caregiver that requested your imaging first. Mariola Calixto MD IMG CT ORDERABLES * Phosphorus (09/21/2024 12:21 AM EDT) Pathologist [facility] Phosphorus 3.2 2.5 - 4.5 mg/dL 09/21/2024 1:06 AM EDT [facility] Blood VENOUS BLOOD SPECIMEN / Unknown IP Care Team Draw / Unknown 09/21/2024 12:21 AM EDT 09/21/2024 12:37 AM EDT Librado Patel MD CHEMISTRY ORDERABLES [facility] [place] [address] * Magnesium (09/21/2024 12:21 AM EDT) Magnesium 0.91 0.69 - 1.07 mMol/L 09/21/2024 1:06 AM EDT [facility] Blood VENOUS BLOOD SPECIMEN / Unknown IP Care Team Draw / Unknown 09/21/2024 12:21 AM EDT 09/21/2024 12:37 AM EDT Librado Patel MD CHEMISTRY ORDERABLES [facility] [place] [address] * (ABNORMAL) Basic Metabolic Panel (09/21/2024 12:21 AM EDT) Glucose 185 65 - 199 mg/dL 09/21/2024 1:06 AM EDT [facility] Comment:Glucose Concentratio n >=200 mg/dL plus symptoms is consistent with Diabetes Mellitus. Blood Urea Nitrogen 30(H) 8 - 18 mg/dL 09/21/2024 1:06 AM [facility] Creatinine 0.54(L) 0.70 - 1.20 mg/dL 09/21/2024 1:06 AM [facility] Sodium 141 135 - 145 mMol/L 09/21/2024 1:06 AM [facility] Potassium 4.2 3.5 - 5.0 mMol/L 09/21/2024 1:06 AM [facility] Chloride 107 98 - 107 mMol/L 09/21/2024 1:06 AM [facility] Carbon Dioxide 23 22 - 31 mMol/L 09/21/2024 1:06 AM [facility] Anion Gap 11 5 - 15 mMol/L 09/21/2024 1:06 AM [facility] Calcium 8.6 8.5 - 10.5 mg/dL 09/21/2024 1:06 AM [facility] Est Glomerular Filtration Rate - Female 98 mL/min/1. 73 m?? 09/21/2024 1:06 AM [facility] Comment: This patient's estimated GFR was [...] AM EDT Librado Patel MD CHEMISTRY ORDERABLES [facility] [place] [address] * (ABNORMAL) CBC (with Diff) (09/21/2024 12:21 AM EDT) White Blood Cell 14.84(H) 4.00 - 9.50 x10(3)/mc L 09/21/2024 12:42 AM [facility] Red Blood Cell 3.02(L) 4.00 - 5.21 x10(6)/mc L 09/21/2024 12:42 AM [facility] Hemoglobin 8.9(L) 11.7 - 15.5 g/dL 09/21/2024 12:42 AM [facility] Hematocrit 27.2(L) 35.7 - 45.8 % 09/21/2024 12:42 AM [facility] Mean Cell Volume 90.1 82.6 - 94.4 fL 09/21/2024 12:42 AM [facility] Mean Cell Hemoglobin 29.5 27.1 - 32.0 pg 09/21/2024 12:42 AM [facility] Mean Cell Hemoglobin Concentration 32.7 31.7 - 35.0 g/dL 09/21/2024 12:42 AM [facility] Platelet 217 145 - 357 x10(3)/mc L 09/21/2024 12:42 AM [facility] Mean Platelet Volume 11.1 7.6 - 12.9 fL 09/21/2024 12:42 AM [facility] RDW Standard Deviation 39.2 37.0 - 46.0 fL 09/21/2024 12:42 AM [facility] RDW coefficient of variation 12.2 11.5 - 14.1 % 09/21/2024 12:42 AM [facility] NRBC% auto 0.0 % 09/21/2024 12:42 AM [facility] NRBC Absolute <0.01 <0.01 x10(3)/mc L 09/21/2024 12:42 AM [facility] Neutrophil % 86.5 % 09/21/2024 12:42 AM [facility] Neutrophil Absolute (ANC) - Automated 12.84(H) 1.70 - 6.10 x10(3)/mc L 09/21/2024 12:42 AM [facility] Lymph % 5.9 % 09/21/2024 12:42 AM [facility] Lymph Absolute 0.87(L) 0.90 - 3.20 x10(3)/mc L 09/21/2024 12:42 AM [facility] Monocyte % 6.6 % 09/21/2024 12:42 AM [facility] Monocyte Absolute 0.98(H) 0.30 - 0.90 x10(3)/mc L 09/21/2024 12:42 AM [facility] Eos % 0.0 % 09/21/2024 12:42 AM [facility] Eos Absolute <0.04 0.00 - 0.40 x10(3)/mc L 09/21/2024 12:42 AM [facility] Basophil % 0.1 % 09/21/2024 12:42 AM [facility] Baso Absolute <0.04 0.00 - 0.10 x10(3)/mc L 09/21/2024 12:42 AM EDT [facility] Immature Gran % 0.9 % 12:42 AM EDT [facility] Immature Gran Absolute 0.14(H) 0.00 - 0.04 x10(3)/mc L 09/21/2024 12:42 AM EDT [facility] Blood VENOUS BLOOD SPECIMEN / Unknown IP Care Team Draw / Unknown 09/21/2024 12:21 AM EDT 09/21/2024 12:37 AM EDT Librado Patel MD HEMATOLOGY ORDERABLE S [facility] [place] [address] * POC, GLUCOSE (09/21/2024 12:20 AM EDT) Glucometer, POC 190 65 - 199 mg/dL 09/21/2024 12:21 AM EDT [facility] Comment:Supplemental ranges: <140 mg/dL before meals <180 mg/dL all other times of the day. Blood CAPILLARY BLOOD / Unknown 09/21/2024 12:20 AM EDT 09/21/2024 12:21 AM EDT Mariola Calixto MD POINT OF CARE TEST ORDERABLES [facility] [place] [address] * POC, GLUCOSE (09/20/2024 9:46 PM EDT) Glucometer, POC 195 65 - 199 mg/dL 09/20/2024 9:47 PM EDT [facility] Comment:Supplemental ranges: <140 mg/dL before meals <180 mg/dL all other times of the day. Blood CAPILLARY BLOOD / Unknown 09/20/2024 9:46 PM EDT 09/20/2024 9:47 PM EDT Mariola Calixto MD POINT OF CARE TEST ORDERABLES Performing Organization Address City/[facility] Co de Phone Number [facility] [place] [address] * POC, GLUCOSE (09/20/2024 3:57 PM EDT) Glucometer, POC 196 65 - 199 mg/dL 09/20/2024 3:57 PM EDT [facility] Comment:Supplemental ranges: <140 mg/dL before meals <180 mg/dL all other times of the day. Blood CAPILLARY BLOOD / Unknown 09/20/2024 3:57 PM EDT 09/20/2024 3:58 PM EDT Mariola Calixto MD POINT OF CARE TEST ORDERABLES Performing Organization Address [facility] Co de Phone Number [facility] [place] [address] * POC, GLUCOSE (09/20/2024 11:55 AM EDT) Glucometer, POC 183 65 - 199 mg/dL 09/20/2024 11:56 AM EDT [facility] Comment:Supplemental ranges: <140 mg/dL before meals <180 mg/dL all other times of the day. Blood CAPILLARY BLOOD / Unknown 09/20/2024 11:55 AM EDT 09/20/2024 11:56 AM EDT Mariola Calixto MD POINT OF CARE TEST ORDERABLES Performing Organization Address City/[facility]/ZIP Co de Phone Number [facility] [place] [address] * Duplex Study for DVT, Bilat legs (09/20/2024 11:29 AM EDT) VB Text Report Department: Vascular Surgery Lab Patient: [id number] (LUCERO BRUNO) CPT: 10919 Referring Physician: LIZA LOVE ?? Phone: Indications: [...] 09/20/2024 11:2 9 AM EDT Liza Love HOG CONFINEMENT SYSTEM MANAGER VASCULAR ORDERABLES Performing Organization Address City/[facility]/ZIP Co de Phone Number [facility] * POC, GLUCOSE (09/20/2024 9:50 AM EDT) [facility] Signature Glucometer, POC 189 65 - 199 mg/dL 09/20/2024 9:50 AM EDT [facility] Comment:Supplemental ranges: <140 mg/dL before meals <180 mg/dL all other times of the day. Blood CAPILLARY BLOOD / Unknown 09/20/2024 9:50 AM EDT 09/20/2024 9:51 AM EDT Mariola Calixto MD POINT OF CARE TEST ORDERABLES [facility] [place] [address] * POC, GLUCOSE (09/20/2024 7:53 AM EDT) Glucometer, POC 179 65 - 199 mg/dL 09/20/2024 7:53 AM EDT [facility] Comment:Supplemental ranges: <140 mg/dL before meals <180 mg/dL all other times of the day. Blood CAPILLARY BLOOD / Unknown 09/20/2024 7:53 AM EDT 09/20/2024 7:53 AM EDT Mariola Calixto MD POINT OF CARE TEST ORDERABLES Performing Organization Address [facility] Co de Phone Number [facility] [place] [address] * POC, GLUCOSE (09/20/2024 3:53 AM EDT) Glucometer, POC 195 65 - 199 mg/dL 09/20/2024 3:53 AM EDT [facility] Comment:Supplemental ranges: <140 mg/dL before meals <180 mg/dL all other times of the day. Blood CAPILLARY BLOOD / Unknown 09/20/2024 3:53 AM EDT 09/20/2024 3:54 AM EDT Serenity Espinosa MD POINT OF CARE TEST O RDERABLES Performing Organization Address [facility] Co de Phone Number [facility] [place] [address] * POC, GLUCOSE (09/20/2024 12:09 AM EDT) Glucometer, POC 182 65 - 199 mg/dL 09/20/2024 12:09 AM EDT [facility] Comment:Supplemental ranges: <140 mg/dL before meals <180 mg/dL all other times of the day. Blood CAPILLARY BLOOD / Unknown 09/20/2024 12:09 AM EDT 09/20/2024 12:09 AM EDT Serenity Espinosa MD POINT OF CARE TEST O RDERAASHLIE [facility] [place] [address] * Triglyceride (09/20/2024 12:09 AM EDT) Triglyceride 95 mg/dL 09/20/2024 12:51 AM EDT [facility] Comment: Normal: <150 mg/dL Borderline High: 150-199 mg/dL High: 200-499 mg/dL Very High: > or =500 mg/dL Blood VENOUS BLOOD SPECIMEN / Unknown IP Care Team Draw / Unknown 09/20/2024 12:09 AM EDT 09/20/2024 12:14 AM EDT Liza Love APRN CHEMISTRY ORDERABLES [facility] [place] [address] * Phosphorus (09/20/2024 12:09 AM EDT) Phosphorus 2.9 2.5 - 4.5 mg/dL 09/20/2024 12:51 AM EDT [facility] Blood VENOUS BLOOD SPECIMEN / Unknown IP Care Team Draw / Unknown 09/20/2024 12:09 AM EDT 09/20/2024 12:14 AM EDT Librado Patel MD CHEMISTRY ORDERABLES [facility] [place] [address] * Magnesium (09/20/2024 12:09 AM EDT) Magnesium 0.88 0.69 - 1.07 mMol/L 09/20/2024 12:51 AM EDT [facility] Blood VENOUS BLOOD SPECIMEN / Unknown IP Care Team Draw / Unknown 09/20/2024 12:09 AM EDT 09/20/2024 12:14 AM EDT Librado Patel MD CHEMISTRY ORDERABLES [facility] [place] [address] * (ABNORMAL) Basic Metabolic Panel (09/20/2024 12:09 AM EDT) Glucose 187 65 - 199 mg/dL 09/20/2024 12:51 [facility] Comment:Glucose Concentratio n >=200 mg/dL plus symptoms is consistent with Diabetes Mellitus. Blood Urea Nitrogen 23(H) 8 - 18 mg/dL 09/20/2024 12:51 AM [facility] Creatinine 0.52(L) 0.70 - 1.20 mg/dL 09/20/2024 12:51 AM [facility] Sodium 139 135 - 145 mMol/L 09/20/2024 12:51 AM [facility] Potassium 4.2 3.5 - 5.0 mMol/L 09/20/2024 12:51 AM [facility] Chloride 107 98 - 107 mMol/L 09/20/2024 12:51 AM [facility] Carbon Dioxide 22 22 - 31 mMol/L 09/20/2024 12:51 AM [facility] Anion Gap 10 5 - 15 mMol/L 09/20/2024 12:51 AM [facility] Calcium 8.4(L) 8.5 - 10.5 mg/dL 09/20/2024 12:51 AM [facility] Est Glomerular Filtration Rate - Female 99 mL/min/1. 73 m?? 09/20/2024 12:51 AM [facility] Comment: This patient's estimated GFR was [...] AM EDT Librado Patel MD CHEMISTRY ORDERABLES [facility] [place] [address] * (ABNORMAL) CBC (with Diff) (09/20/2024 12:09 AM EDT) White Blood Cell 13.82(H) 4.00 - 9.50 x10(3)/mc L 09/20/2024 12:35 AM EDT [facility] Red Blood Cell 3.01(L) 4.00 - 5.21 x10(6)/mc L 09/20/2024 12:35 AM EDT [facility] Hemoglobin 8.9(L) 11.7 - 15.5 g/dL 09/20/2024 12:35 AM T [facility] Hematocrit 26.9(L) 35.7 - 45.8 % 09/20/2024 12:35 AM [facility] Mean Cell Volume 89.4 82.6 - 94.4 fL 09/20/2024 12:35 AM [facility] Mean Cell Hemoglobin 29.6 27.1 - 32.0 pg 09/20/2024 12:35 AM [facility] Mean Cell Hemoglobin Concentration 33.1 31.7 - 35.0 g/dL 09/20/2024 12:35 AM [facility] Platelet 191 145 - 357 x10(3)/mc L 09/20/2024 12:35 AM [facility] Mean Platelet Volume 11.1 7.6 - 12.9 fL 09/20/2024 12:35 AM [facility] RDW Standard Deviation 41.0 37.0 - 46.0 fL 09/20/2024 12:35 AM [facility] RDW coefficient of variation 12.6 11.5 - 14.1 % 09/20/2024 12:35 AM [facility] NRBC% auto 0.0 % 09/20/2024 12:35 AM [facility] NRBC Absolute <0.01 <0.01 x10(3)/mc L 09/20/2024 12:35 AM [facility] Neutrophil % 90.2 % 09/20/2024 12:35 AM [facility] Neutrophil Absolute (ANC) - Automated 12.48(H) 1.70 - 6.10 x10(3)/mc L 09/20/2024 12:35 AM [facility] Lymph % 4.7 % 09/20/2024 12:35 AM [facility] Lymph Absolute 0.65(L) 0.90 - 3.20 x10(3)/mc L 09/20/2024 12:35 AM [facility] Monocyte % 4.3 % 09/20/2024 12:35 AM [facility] Monocyte Absolute 0.59 0.30 - 0.90 x10(3)/mc L 09/20/2024 12:35 AM [facility] Eos % 0.0 % 09/20/2024 12:35 AM [facility] Eos Absolute <0.04 0.00 - 0.40 x10(3)/mc L 09/20/2024 12:35 AM [facility] Basophil % 0.1 % 09/20/2024 12:35 AM [facility] Baso Absolute <0.04 0.00 - 0.10 x10(3)/mc L 09/20/2024 12:35 AM [facility] Immature Gran % 0.7 % 12:35 AM EDT [facility] Immature Gran Absolute 0.09(H) 0.00 - 0.04 x10(3)/mc L 09/20/2024 12:35 AM EDT [facility] Blood VENOUS BLOOD SPECIMEN / Unknown IP Care Team Draw / Unknown 09/20/2024 12:09 AM EDT 09/20/2024 12:14 AM EDT Librado Patel MD HEMATOLOGY ORDERABLE S [facility] [place] [address] * POC, GLUCOSE (09/19/2024 7:36 PM EDT) Pathologist [employer] Glucometer, POC 175 65 - 199 mg/dL 09/19/2024 7:36 PM EDT [facility] Comment:Supplemental ranges: <140 mg/dL before meals <180 mg/dL all other times of the day. 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 Numerous small foci of decreased acute infarction both along and separate from the site of hemorrhage. These foci are present in both cerebral hemispheres and have a pattern most consistent with embolic infarction. No evidence of LEADERSHIP COACH malignancy Thank you for letting us participate in the care of this patient. ??If you are a health care provider and have any questions regarding this report, please contact the number below. ??For patients who have questions please contact the health cna caregiver that requested your imaging first. ? Narrative 09/20/2024 8:24 AM EDT EXAMINATION: MRI [...] consistent with embolic infarction. No evidence of LEADERSHIP COACH malignancy Thank you for letting us participate in the care of this patient. If youare a health care provider and have any questions regarding this report,please contact the number below. For patients who have questions please contactthe health cna caregiver that requested your imaging first. Neelam Gill APRN [facility] MRI ORDERABLES * POC, GLUCOSE (09/19/2024 3:30 PM EDT) [facility] Glucometer, POC 181 65 - 199 mg/dL 09/19/2024 3:30 PM EDT [facility] Comment:Supplemental ranges: <140 mg/dL before meals <180 mg/dL all other times of the day. Blood CAPILLARY BLOOD / Unknown 09/19/2024 3:30 PM EDT 09/19/2024 3:30 PM EDT Serenity Espinosa MD POINT OF CARE TEST O ALDO [facility] [place] [address] * POC, GLUCOSE (09/19/2024 12:34 PM EDT) Glucometer, POC 174 65 - 199 mg/dL 09/19/2024 12:34 PM EDT [facility] Comment:Supplemental ranges: <140 mg/dL before meals <180 mg/dL all other times of the day. Blood CAPILLARY BLOOD / Unknown 09/19/2024 12:34 PM EDT 09/19/2024 12:34 PM EDT Serenity Espinosa MD POINT OF CARE TEST O ALDO Performing Organization Address City/[facility]/ZIP Co de Phone Number [facility] [place] [address] * POC, GLUCOSE (09/19/2024 7:35 AM EDT) Glucometer, POC 134 65 - 199 mg/dL 09/19/2024 7:35 AM EDT [facility] Comment:Supplemental ranges: <140 mg/dL before meals <180 mg/dL all other times of the day. Blood CAPILLARY BLOOD / Unknown 09/19/2024 7:35 AM EDT 09/19/2024 7:35 AM EDT Serenity Espinosa MD POINT OF CARE TEST O ALDO [facility] [place] [address] * POC, GLUCOSE (09/19/2024 4:23 AM EDT) Glucometer, POC 131 65 - 199 mg/dL 09/19/2024 4:24 AM EDT [facility] Comment:Supplemental ranges: <140 mg/dL before meals <180 mg/dL all other times of the day. Blood CAPILLARY BLOOD / Unknown 09/19/2024 4:23 AM EDT 09/19/2024 4:24 AM EDT Serenity Espinosa MD POINT OF CARE TEST O ALDO [facility] [place] [address] * POC, GLUCOSE (09/19/2024 1:00 AM EDT) Glucometer, POC 163 65 - 199 mg/dL 09/19/2024 1:00 AM EDT [facility] Comment:Supplemental ranges: <140 mg/dL before meals <180 mg/dL all other times of the day. Blood CAPILLARY BLOOD / Unknown 09/19/2024 1:00 AM EDT 09/19/2024 1:00 AM EDT Serenity Espinosa MD POINT OF CARE TEST O ALDO Performing Organization Address [facility]/ZIP Co de Phone Number [facility] [place] [address] * (ABNORMAL) Phosphorus (09/19/2024 12:55 AM EDT) Phosphorus 1.7(L) 2.5 - 4.5 mg/dL 09/19/2024 1:38 AM EDT [facility] Blood VENOUS BLOOD SPECIMEN / Unknown IP Care Team Draw / Unknown 09/19/2024 12:55 AM EDT 09/19/2024 1:05 AM EDT Librado Patel MD CHEMISTRY ORDERABLES Performing Organization Address City/[facility]/ZIP Co de Phone Number [facility] [place] [address] * Magnesium (09/19/2024 12:55 AM EDT) Magnesium 0.77 0.69 - 1.07 mMol/L 09/19/2024 1:38 AM EDT [facility] Blood VENOUS BLOOD SPECIMEN / Unknown IP Care Team Draw / Unknown 09/19/2024 12:55 AM EDT 09/19/2024 1:05 AM EDT Librado Patel MD CHEMISTRY ORDERABLES [facility] [place] [address] * (ABNORMAL) Basic Metabolic Panel (09/19/2024 12:55 AM EDT) Glucose 164 65 - 199 mg/dL 09/19/2024 1:38 AM EDT [facility] Comment:Glucose Concentratio n >=200 mg/dL plus symptoms is consistent with Diabetes Mellitus. Blood Urea Nitrogen 17 8 - 18 mg/dL 09/19/2024 1:38 AM EDT [facility] Creatinine 0.49(L) 0.70 - 1.20 mg/dL 09/19/2024 1:38 AM EDT [facility] Sodium 140 135 - 145 mMol/L 09/19/2024 1:38 AM EDT [facility] Potassium 3.6 3.5 - 5.0 mMol/L 09/19/2024 1:38 AM EDT [facility] Chloride 110(H) 98 - 107 mMol/L 09/19/2024 1:38 [facility] Carbon Dioxide 21(L) 22 - 31 mMol/L 09/19/2024 1:38 AM EDT [facility] Anion Gap 9 5 - 15 mMol/L 09/19/2024 1:38 [facility] Calcium 8.2(L) 8.5 - 10.5 mg/dL 09/19/2024 1:38 AM EDT [facility] Est Glomerular Filtration Rate - Female 100 mL/min/1. 73 m?? 09/19/2024 1:38 AM EDT [facility] Comment: This patient's estimated GFR [...] Patel MD CHEMISTRY ORDERABLES Performing Organization Address City/State/[facility] Co de Phone Number [facility] [place] [address] * (ABNORMAL) CBC (with Diff) (09/19/2024 12:55 AM EDT) White Blood Cell 18.90(H) 4.00 - 9.50 x10(3)/mc L 09/19/2024 1:10 AM EDT [facility] Red Blood Cell 3.00(L) 4.00 - 5.21 x10(6)/mc L 09/19/2024 1:10 AM EDT [facility] Hemoglobin 8.9(L) 11.7 - 15.5 g/dL 09/19/2024 1:10 AM EDT [facility] Hematocrit 27.1(L) 35.7 - 45.8 % 09/19/2024 1:10 AM EDT [facility] Mean Cell Volume 90.3 82.6 - 94.4 fL 09/19/2024 1:10 AM EDT [facility] Mean Cell Hemoglobin 29.7 27.1 - 32.0 pg 09/19/2024 1:10 AM [facility] Mean Cell Hemoglobin Concentration 32.8 31.7 - 35.0 g/dL 09/19/2024 1:10 AM [facility] Platelet 204 145 - 357 x10(3)/mc L 09/19/2024 1:10 AM [facility] Mean Platelet Volume 10.5 7.6 - 12.9 fL 09/19/2024 1:10 AM [facility] RDW Standard Deviation 43.1 37.0 - 46.0 fL 09/19/2024 1:10 AM [facility] RDW coefficient of variation 13.1 11.5 - 14.1 % 09/19/2024 1:10 AM [facility] NRBC% auto 0.0 % 09/19/2024 1:10 AM [facility] NRBC Absolute <0.01 <0.01 x10(3)/mc L 09/19/2024 1:10 AM [facility] Neutrophil % 81.5 % 09/19/2024 1:10 AM [facility] Neutrophil Absolute (ANC) - Automated 15.41(H) 1.70 - 6.10 x10(3)/mc L 09/19/2024 1:10 AM [facility] Lymph % 8.9 % 09/19/2024 1:10 AM [facility] Lymph Absolute 1.69 0.90 - 3.20 x10(3)/mc L 09/19/2024 1:10 AM [facility] Monocyte % 8.7 % 09/19/2024 1:10 AM [facility] Monocyte Absolute 1.64(H) 0.30 - 0.90 x10(3)/mc L 09/19/2024 1:10 AM [facility] Eos % 0.1 % 09/19/2024 1:10 AM [facility] Eos Absolute <0.04 0.00 - 0.40 x10(3)/mc L 09/19/2024 1:10 AM EDT [facility] Basophil % 0.2 % 09/19/2024 1:10 AM EDT [facility] Baso Absolute <0.04 0.00 - 0.10 x10(3)/mc L 09/19/2024 1:10 AM EDT [facility] Immature Gran % 0.6 % 1:10 AM EDT [facility] Immature Gran Absolute 0.11(H) 0.00 - 0.04 x10(3)/mc L 09/19/2024 1:10 AM EDT [facility] Blood VENOUS BLOOD SPECIMEN / Unknown IP Care Team Draw / Unknown 09/19/2024 12:55 AM EDT 09/19/2024 1:05 AM EDT Librado Patel MD HEMATOLOGY ORDERABLE S Performing Organization Address City/[facility]/ZIP Co de Phone Number [facility] [place] [address] * POC, GLUCOSE (09/18/2024 8:13 PM EDT) Glucometer, POC 148 65 - 199 mg/dL 09/18/2024 8:13 PM EDT [facility] Comment:Supplemental ranges: <140 mg/dL before meals <180 mg/dL all other times of the day. Blood CAPILLARY BLOOD / Unknown 09/18/2024 8:13 PM EDT 09/18/2024 8:13 PM EDT Serenity Espinosa MD POINT OF CARE TEST O RDERABLES [facility] [place] [address] * POC, GLUCOSE (09/18/2024 4:26 PM EDT) Glucometer, POC 152 65 - 199 mg/dL 09/18/2024 4:27 PM EDT [facility] Comment:Supplemental ranges: <140 mg/dL before meals <180 mg/dL all other times of the day. Blood CAPILLARY BLOOD / Unknown 09/18/2024 4:26 PM EDT 09/18/2024 4:27 PM EDT Serenity Espinosa MD POINT OF CARE TEST O RDERABLES Performing Organization Address City/[facility]/ZIP Co de Phone Number [facility] [place] [address] * Lower Respiratory Culture (09/18/2024 2:44 PM EDT) Lower Respiratory Culture Rare mixed bacterial morphotypes suggestive of normal upper respiratory franco 09/20/2024 11:07 AM EDT [facility] Gram Stain Many Neutrophils seen 09/20/2024 11:07 AM EDT [facility] Gram Stain No squamous epithelial cells 09/20/2024 11:07 AM EDT [facility] Gram Stain No microorganisms seen 09/20/2024 11:07 AM EDT [facility] Bronchial Alveolar Lavage SPECIMEN FROM BRONCHUS / Unknown Non Blood Collection / Unknown 09/18/2024 2:44 PM EDT 09/18/2024 3:02 PM EDT Neelam Gill APRN MICROBIOLOGY - GENER AL ORDERABLES Performing Organization Address City/[facility]/ZIP Co de Phone Number [facility] [place] [address] * Blood culture (09/18/2024 12:47 PM EDT) Blood Culture No growth at 120 hours 09/23/2024 2:01 PM EDT [facility] Blood VENOUS BLOOD SPECIMEN / Unknown IP Care Team Draw / Unknown 09/18/2024 12:47 PM EDT 09/18/2024 12:50 PM EDT Neelam Gill APRN MICROBIOLOGY - BLOOD ORDERABLES [facility] [place] [address] * Blood culture (09/18/2024 12:47 PM EDT) Blood Culture No growth at 120 hours 09/23/2024 2:01 PM EDT [facility] Blood VENOUS BLOOD SPECIMEN / Unknown IP Care Team Draw / Unknown 09/18/2024 12:47 PM EDT 09/18/2024 12:50 PM EDT Neelam Gill APRN MICROBIOLOGY - BLOOD ORDERABLES Performing Organization Address City/[facility]/ZIP Co de Phone Number [facility] [place] [address] * XR Abdomen 1 view (Generic) (09/18/2024 12:31 PM EDT) WORKSTATION ID [id number] [facility] Anatomical Region Laterality Modality Abdomen N/A Digital [...] who have questions please contact the health cna caregiver that requested your imaging first. ? Narrative [...] patients who have questions please contactthe health cna caregiver that requested your imaging first. Neelam Gill APRN IMG DX ORDERABLES * POC, GLUCOSE (09/18/2024 12:10 PM EDT) [facility] Signature Glucometer, POC 141 65 - 199 mg/dL 09/18/2024 12:11 PM EDT [facility] Comment:Supplemental ranges: <140 mg/dL before meals <180 mg/dL all other times of the day. Blood CAPILLARY BLOOD / Unknown 09/18/2024 12:10 PM EDT 09/18/2024 12:11 PM EDT Serenity Espinosa MD POINT OF CARE TEST O RDERABLES [facility] [place] [address] * XR Chest One View (09/18/2024 8:43 AM EDT) WORKSTATION ID [id number] RAD Anatomical Region Laterality Modality Chest N/A [...] who have questions please contact the health cna caregiver that requested your imaging first. ? Narrative [...] patients who have questions please contactthe health cna caregiver that requested your imaging first. Neelam Gill APRN IMG DX ORDERABLES * POC, GLUCOSE (09/18/2024 7:47 AM EDT) [facility] Glucometer, POC 141 65 - 199 mg/dL 09/18/2024 7:47 AM EDT [facility] Comment:Supplemental ranges: <140 mg/dL before meals <180 mg/dL all other times of the day. Blood CAPILLARY BLOOD / Unknown 09/18/2024 7:47 AM EDT 09/18/2024 7:48 AM EDT Serenity Espinosa MD POINT OF CARE TEST O RDERABLES [facility] [place] [address] * Sodium (09/18/2024 6:15 AM EDT) Sodium 142 135 - 145 mMol/L 09/18/2024 2:28 PM EDT [facility] Blood VENOUS BLOOD SPECIMEN / Unknown IP Care Team Draw / Unknown 09/18/2024 6:15 AM EDT 09/18/2024 6:21 AM EDT Neelam Mercedes Gill APRN CHEMISTRY ORDERABLES [facility] [place] [address] * Potassium (09/18/2024 6:15 AM EDT) Potassium 4.0 3.5 - 5.0 mMol/L 09/18/2024 6:35 AM EDT [facility] Blood VENOUS BLOOD SPECIMEN / Unknown IP Care Team Draw / Unknown 09/18/2024 6:15 AM EDT 09/18/2024 6:21 AM EDT Serenity Espinosa MD CHEMISTRY ORDERABLES [facility] [place] [address] * APTT (09/18/2024 6:15 AM EDT) Partial Thromboplastin Time 25 25 - 37 sec 09/18/2024 7:35 AM EDT [facility] Blood VENOUS BLOOD SPECIMEN / Unknown IP Care Team Draw / Unknown 09/18/2024 6:15 AM EDT 09/18/2024 7:05 AM EDT Serenity Espinosa MD HEMATOLOGY ORDERABLE S [facility] [place] [address] * Prothrombin Time (09/18/2024 6:15 AM EDT) Prothrombin Time 12.3 9.4 - 12.5 sec 09/18/2024 7:35 AM EDT [facility] International Normalization Ratio 1.1 <=4.9 09/18/2024 7:35 AM EDT [facility] Comment: An INR < 2.0 indicates [...] MD HEMATOLOGY ORDERABLE S Performing Organization Address City/[facility]/ZIP Co de Phone Number [facility] [place] [address] * POC, GLUCOSE (09/18/2024 4:37 AM EDT) Glucometer, POC 157 65 - 199 mg/dL 09/18/2024 4:37 AM EDT [facility] Comment:Supplemental ranges: <140 mg/dL before meals <180 mg/dL all other times of the day. Blood CAPILLARY BLOOD / Unknown 09/18/2024 4:37 AM EDT 09/18/2024 4:38 AM EDT Serenity Espinosa MD POINT OF CARE TEST O RDERABLES Performing Organization Address City/[facility]/ZIP Co de Phone Number [facility] [place] [address] * Scan, Peripheral Blood (09/18/2024 12:20 AM EDT) RBC Morphology Normal 09/18/2024 1:08 AM EDT [facility] Platelet Estimate Normal Normal 09/18/2024 1:08 AM EDT [facility] Blood VENOUS BLOOD SPECIMEN / Unknown IP Care Team Draw / Unknown 09/18/2024 12:20 AM EDT 09/18/2024 12:28 AM EDT Jah Altman APRN HEMATOLOGY ORDERAB LES Performing Organization Address City/[facility]/ZIP Co de Phone Number [facility] [place] [address] * (ABNORMAL) Phosphorus (09/18/2024 12:20 AM EDT) Phosphorus 2.4(L) 2.5 - 4.5 mg/dL 09/18/2024 12:58 AM EDT [facility] Blood VENOUS BLOOD SPECIMEN / Unknown IP Care Team Draw / Unknown 09/18/2024 12:20 AM EDT 09/18/2024 12:28 AM EDT Librado Patel MD CHEMISTRY ORDERABLES Performing Organization Address City/[facility]/ZIP Co de Phone Number [facility] [place] [address] * Magnesium (09/18/2024 12:20 AM EDT) Magnesium 0.81 0.69 - 1.07 mMol/L 09/18/2024 12:58 AM EDT [facility] Blood VENOUS BLOOD SPECIMEN / Unknown IP Care Team Draw / Unknown 09/18/2024 12:20 AM EDT 09/18/2024 12:28 AM EDT Librado Patel MD CHEMISTRY ORDERABLES Performing Organization Address City/[facility]/ZIP Co de Phone Number [facility] [place] [address] * (ABNORMAL) Basic Metabolic Panel (09/18/2024 12:20 AM EDT) Glucose 186 65 - 199 mg/dL 09/18/2024 1:19 AM EDT [facility] Comment:Glucose Concentratio n >=200 mg/dL plus symptoms is consistent with Diabetes Mellitus. Blood Urea Nitrogen 15 8 - 18 mg/dL 09/18/2024 1:19 AM [facility] Creatinine 0.57(L) 0.70 - 1.20 mg/dL 09/18/2024 1:19 AM [facility] Sodium 141 135 - 145 mMol/L 09/18/2024 1:19 AM [facility] Potassium 3.6 3.5 - 5.0 mMol/L 09/18/2024 1:19 AM [facility] Chloride 108(H) 98 - 107 mMol/L 09/18/2024 1:19 AM [facility] Carbon Dioxide 22 22 - 31 mMol/L 09/18/2024 1:19 AM [facility] Anion Gap 11 5 - 15 mMol/L 09/18/2024 1:19 AM [facility] Calcium 8.2(L) 8.5 - 10.5 mg/dL 09/18/2024 1:19 AM [facility] Est Glomerular Filtration Rate - Female 97 mL/min/1. 73 m?? 09/18/2024 1:19 AM [facility] Comment: This patient's estimated GFR was [...] AM EDT Librado Patel MD CHEMISTRY ORDERABLES [facility] [place] [address] * (ABNORMAL) CBC (with Diff) (09/18/2024 12:20 AM EDT) White Blood Cell 20.04(H) 4.00 - 9.50 x10(3)/mc L 09/18/2024 1:08 AM [facility] Red Blood Cell 3.37(L) 4.00 - 5.21 x10(6)/mc L 09/18/2024 1:08 AM [facility] Hemoglobin 10.2(L) 11.7 - 15.5 g/dL 09/18/2024 1:08 AM [facility] Hematocrit 30.3(L) 35.7 - 45.8 % 09/18/2024 1:08 AM [facility] Mean Cell Volume 89.9 82.6 - 94.4 fL 09/18/2024 1:08 AM [facility] Mean Cell Hemoglobin 30.3 27.1 - 32.0 pg 09/18/2024 1:08 AM [facility] Mean Cell Hemoglobin Concentration 33.7 31.7 - 35.0 g/dL 09/18/2024 1:08 AM [facility] Platelet 250 145 - 357 x10(3)/mc L 09/18/2024 1:08 AM [facility] Mean Platelet Volume 10.3 7.6 - 12.9 fL 09/18/2024 1:08 AM [facility] RDW Standard Deviation 42.9 37.0 - 46.0 fL 09/18/2024 1:08 AM [facility] RDW coefficient of variation 13.1 11.5 - 14.1 % 09/18/2024 1:08 AM [facility] NRBC% auto 0.0 % 09/18/2024 1:08 AM [facility] NRBC Absolute <0.01 <0.01 x10(3)/mc L 09/18/2024 1:08 AM [facility] Neutrophil % 86.6 % 09/18/2024 1:08 AM [facility] Comment:This is an appended report. These results have been appended to a previously preliminary verified report. Neutrophil Absolute (ANC) - Automated 17.33(H) 1.70 - 6.10 x10(3)/mc L 09/18/2024 1:08 AM [facility] Comment:This is an appended report. These results have been appended to a previously preliminary verified report. Lymph % 4.7 % 09/18/2024 1:08 AM [facility] Comment:This is an appended report. These results have been appended to a previously preliminary verified report. Lymph Absolute 0.95 0.90 - 3.20 x10(3)/mc L 09/18/2024 1:08 AM [facility] Comment:This is an appended report. These results have been appended to a previously preliminary verified report. Monocyte % 8.1 % 09/18/2024 1:08 AM [facility] Comment:This is an appended report. These results have been appended to a previously preliminary verified report. Monocyte Absolute 1.63(H) 0.30 - 0.90 x10(3)/mc L 09/18/2024 1:08 AM [facility] Comment:This is an appended report. These results have been appended to a previously preliminary verified report. Eos % 0.0 % 09/18/2024 1:08 AM [facility] Comment:This is an appended report. These results have been appended to a previously preliminary verified report. Eos Absolute <0.04 0.00 - 0.40 x10(3)/mc L 09/18/2024 1:08 AM [facility] Comment:This is an appended report. These results have been appended to a previously preliminary verified report. Basophil % 0.1 % 09/18/2024 1:08 AM [facility] Comment:This is an appended report. These results have been appended to a previously preliminary verified report. Baso Absolute <0.04 0.00 - 0.10 x10(3)/mc L 09/18/2024 1:08 AM EDT [facility] Comment:This is an appended report. These results have been appended to a previously preliminary verified report. Immature Gran % 0.5 % 1:08 AM EDT [facility] Comment:This is an appended report. These results have been appended to a previously preliminary verified report. Immature Gran Absolute 0.11(H) 0.00 - 0.04 x10(3)/mc L 09/18/2024 1:08 AM EDT [facility] Comment:This is an appended report. These results have been appended to a previously preliminary verified report. Blood VENOUS BLOOD SPECIMEN / Unknown IP Care Team Draw / Unknown 09/18/2024 12:20 AM EDT 09/18/2024 12:28 AM EDT Librado Patel MD HEMATOLOGY ORDERABLE S Performing Organization Address City/[facility]/ZIP Co de Phone Number [facility] [place] [address] * APTT (09/18/2024 12:20 AM EDT) [facility] Partial Thromboplastin Time 25 25 - 37 sec 09/18/2024 12:39 AM EDT [facility] Comment: The PTT is NOT appropriate for heparin monitoring. Use the Anti-Xa level for heparin monitoring (HEP UFH) or LMWH monitoring (HEP LMW). A PTT less than 37 seconds generally indicates adequate hemostasis. Blood VENOUS BLOOD SPECIMEN / Unknown IP Care Team Draw / Unknown 09/18/2024 12:20 AM EDT 09/18/2024 12:28 AM EDT Serenity Espinosa MD HEMATOLOGY ORDERABLE S Performing Organization Address City/[facility]/ZIP Co de Phone Number [facility] [place] [address] * (ABNORMAL) Prothrombin Time (09/18/2024 12:20 AM EDT) Prothrombin Time 12.8(H) 9.4 - 12.5 sec 09/18/2024 12:39 AM EDT [facility] International Normalization Ratio 1.1 <=4.9 09/18/2024 12:39 AM EDT [facility] Comment: An INR < 2.0 indicates [...] MD HEMATOLOGY ORDERABLE S Performing Organization Address City/[facility]/ZIP Co de Phone Number [facility] [place] [address] * POC, GLUCOSE (09/17/2024 11:45 PM EDT) Glucometer, POC 179 65 - 199 mg/dL 09/17/2024 11:45 PM EDT [facility] Comment:Supplemental ranges: <140 mg/dL before meals <180 mg/dL all other times of the day. Blood CAPILLARY BLOOD / Unknown 09/17/2024 11:45 PM EDT 09/17/2024 11:45 PM EDT Serenity Espinosa MD POINT OF CARE TEST O RDERABLES [facility] [place] [address] * POC, GLUCOSE (09/17/2024 8:34 PM EDT) Glucometer, POC 187 65 - 199 mg/dL 09/17/2024 8:34 PM EDT [facility] Comment:Supplemental ranges: <140 mg/dL before meals <180 mg/dL all other times of the day. Blood CAPILLARY BLOOD / Unknown 09/17/2024 8:34 PM EDT 09/17/2024 8:34 PM EDT Serenity Espinosa MD POINT OF CARE TEST O RDERABLES Performing Organization Address [facility] Co de Phone Number [facility] [place] [address] * APTT (09/17/2024 5:23 PM EDT) Partial Thromboplastin Time 26 25 - 37 sec 09/17/2024 5:48 PM EDT [facility] Comment: The PTT is NOT appropriate for heparin monitoring. Use the Anti-Xa level for heparin monitoring (HEP UFH) or LMWH monitoring (HEP LMW). A PTT less than 37 seconds generally indicates adequate hemostasis. Blood VENOUS BLOOD SPECIMEN / Unknown IP Care Team Draw / Unknown 09/17/2024 5:23 PM EDT 09/17/2024 5:31 PM EDT Serenity Espinosa MD HEMATOLOGY ORDERABLE S Performing Organization Address [facility] Co de Phone Number [facility] [place] [address] * Prothrombin Time (09/17/2024 5:23 PM EDT) Prothrombin Time 12.1 9.4 - 12.5 sec 09/17/2024 5:48 PM EDT [facility] International Normalization Ratio 1.1 <=4.9 09/17/2024 5:48 PM EDT [facility] Comment: An INR < 2.0 indicates [...] EDT Serenity Espinosa MD HEMATOLOGY ORDERABLE S [facility] [place] [address] * POC, GLUCOSE (09/17/2024 4:19 PM EDT) Glucometer, POC 180 65 - 199 mg/dL 09/17/2024 4:20 PM EDT [facility] Comment:Supplemental ranges: <140 mg/dL before meals <180 mg/dL all other times of the day. Blood CAPILLARY BLOOD / Unknown 09/17/2024 4:19 PM EDT 09/17/2024 4:20 PM EDT Serenity Espinosa MD POINT OF CARE TEST O RDERABLES Performing Organization Address City/[facility]/ZIP Co de Phone Number [facility] [place] [address] * XR Chest One View (09/17/2024 2:13 PM EDT) WORKSTATION ID [id number] DH RAD Anatomical Region Laterality Modality Chest [...] who have questions please contact the health cna caregiver that requested your imaging first. ? Narrative [...] patients who have questions please contactthe health cna caregiver that requested your imaging first. Liza Love APRN IMG DX ORDERABLES * APTT (09/17/2024 12:36 PM EDT) Partial Thromboplastin Time 25 25 - 37 sec 09/17/2024 1:07 PM EDT [facility] Comment: The PTT is NOT appropriate for heparin monitoring. Use the Anti-Xa level for heparin monitoring (HEP UFH) or LMWH monitoring (HEP LMW). A PTT less than 37 seconds generally indicates adequate hemostasis. Blood VENOUS BLOOD SPECIMEN / Unknown IP Care Team Draw / Unknown 09/17/2024 12:36 PM EDT 09/17/2024 12:48 PM EDT Serenity Espinosa MD HEMATOLOGY ORDERABLE S [facility] [place] [address] * Prothrombin Time (09/17/2024 12:36 PM EDT) Prothrombin Time 12.0 9.4 - 12.5 sec 09/17/2024 1:07 PM EDT [facility] International Normalization Ratio 1.1 <=4.9 09/17/2024 1:07 PM EDT [facility] Comment: An INR < 2.0 indicates [...] MD HEMATOLOGY ORDERABLE S Performing Organization Address City/[facility]/ZIP Co de Phone Number [facility] [place] [address] * POC, GLUCOSE (09/17/2024 11:26 AM EDT) Glucometer, POC 183 65 - 199 mg/dL 09/17/2024 11:26 AM EDT [facility] Comment:Supplemental ranges: <140 mg/dL before meals <180 mg/dL all other times of the day. Blood CAPILLARY BLOOD / Unknown 09/17/2024 11:26 AM EDT 09/17/2024 11:27 AM EDT Serenity Espinosa MD POINT OF CARE TEST O RDERABLES Performing Organization Address City/[facility]/ZIP Co de Phone Number [facility] [place] [address] * ECHO LMTD W CONTRAST W LMTD SPEC DOPP COLOR DOPP (09/17/2024 8:18 AM EDT) EF 65 [facility] Anatomical Region Laterality Modality Cardiac Other 09/17/2024 7:35 AM EDT Narrative 09/17/2024 11:18 AM EDT ? Version [address] [place] [id number] ? Echocardiogram Report Name: LUCERO BRUNO ?Study Date: 09/17/2024 07:35 AMBP: 142/68 mmHg : 1950 ? Height: 152 cm ? Account: [id number] Age: 74 yrs ? Weight: 89 kg Gender: Female ?BSA: 1.8 m2 Ordering Physician: DUANE CAUSEY Referring Physician: ILIANA CARPENTER Performed By: EDWIN Reason For Study: Atrial Fibrillation, Watchman Exam Location: [facility]. Interpretation Summary 1. Normal left ventriclar wall thickness, chamber size and systolic function. The left ventricular ejection fraction is 75% by Ruth's biplane. There are no segmental wall motion abnormalities. No thrombus visualized with Definity. 2. Normal right ventricular size and systolic function. 3. No hemodynamically significant valvular abnormalities. Compared to 05/06/2024: Findings are stable Procedure Limited - [id number]. Image enhancement Definity was used for left [...] Newberry MD - 09/17/2024 Version 2 1 [place] [id number] Echocardiogram Report Name: LUCERO BRUNO Study Date: 407:35 AMBP: 142/68 mmHg : 1950 Height: 152 cm Account: [id number] Age: 74 yrs Weight: 89 kg Gender: Female BSA: 1.8 m2 Ordering Physician: DUANE CAUSEY Referring Physician: ILIANA CARPENTER Performed By: EDWIN Reason For Study: Atrial Fibrillation, Watchman Exam Location: [facility]. Interpretation Summary 1. Normal left ventriclar wall thickness, chamber size and systolicfunction. The left ventricular ejection fraction is 75% by Ruth's biplane. There areno segmental wall motion abnormalities. No thrombus visualized withDefinity. 2. Normal right ventricular size and systolic function. 3. No hemodynamically significant valvular abnormalities. Compared to 05/06/2024: Findings are stable Procedure Limited - [id number]. Image enhancement Definity was used for leftventricular [...] * POC, GLUCOSE (09/17/2024 7:57 AM EDT) [facility] Signature Glucometer, POC 122 65 - 199 mg/dL 09/17/2024 7:58 AM EDT [facility] Comment:Supplemental ranges: <140 mg/dL before meals <180 mg/dL all other times of the day. Blood CAPILLARY BLOOD / Unknown 09/17/2024 7:57 AM EDT 09/17/2024 7:58 AM EDT Serenity Espinosa MD POINT OF CARE TEST O RDERABLES [facility] [place] [address] * APTT (09/17/2024 6:18 AM EDT) Partial Thromboplastin Time 26 25 - 37 sec 09/17/2024 6:39 AM EDT [facility] Comment: The PTT is NOT appropriate for heparin monitoring. Use the Anti-Xa level for heparin monitoring (HEP UFH) or LMWH monitoring (HEP LMW). A PTT less than 37 seconds generally indicates adequate hemostasis. Blood VENOUS BLOOD SPECIMEN / Unknown IP Care Team Draw / Unknown 09/17/2024 6:18 AM EDT 09/17/2024 6:26 AM EDT Serenity Espinosa MD HEMATOLOGY ORDERABLE S Performing Organization Address City/[facility]/ZIP Co de Phone Number [facility] [place] [address] * Prothrombin Time (09/17/2024 6:18 AM EDT) Prothrombin Time 11.7 9.4 - 12.5 sec 09/17/2024 6:39 AM EDT [facility] International Normalization Ratio 1.0 <=4.9 09/17/2024 6:39 AM EDT [facility] Comment: An INR < 2.0 indicates [...] MD HEMATOLOGY ORDERABLE S Performing Organization Address City/[facility]/ZIP Co de Phone Number [facility] [place] [address] * Prepare Platelets, Apheresis (09/17/2024 6:07 AM EDT) Status Information Transfused [facility] Product Identification [id number] [facility] Unit Number [id number] [facility] Product Code [id number] [facility] Unit Blood Type APOS [facility] Specimen Expiration Date [id number] [facility] Volulme 236 [facility] Issue Date / Time [id number] [facility] Blood 09/16/2024 5:1 2 PM EDT Duane Lazcano MD BLOOD BANK PRODUCT O RDERABLES [facility] [place] [address] * CT Head wo Contrast (Generic) (09/17/2024 4:51 AM EDT) WORKSTATION ID [id number] RAD Anatomical Region Laterality Modality Head Computed [...] who have questions please contact the health cna caregiver that requested your imaging first. ? --------ORIGINAL [...] who have questions please contact the health cna caregiver that requested your imaging first. ? Addendum by Elvin Bolden DO on 09/17/2024 [...] who have questions please contact the health cna caregiver that requested your imaging first. ? Impressions 09/17/2024 8:38 AM EDT Increased size [...] who have questions please contact the health cna caregiver that requested your imaging first. ? Narrative 09/17/2024 8:38 AM EDT EXAMINATION: CT [...] patients who have questions please contactthe health cna caregiver that requested your imaging first. Sushila Espinal MD IMG CT ORDERABLES * POC, GLUCOSE (09/17/2024 3:16 AM EDT) Glucometer, POC 167 65 - 199 mg/dL 09/17/2024 3:16 AM EDT [facility] Comment:Supplemental ranges: <140 mg/dL before meals <180 mg/dL all other times of the day. Blood CAPILLARY BLOOD / Unknown 09/17/2024 3:16 AM EDT 09/17/2024 3:16 AM EDT Serenity Espinosa MD POINT OF CARE TEST O RDERABLES Performing Organization Address City/[facility]/ZIP Co de Phone Number [facility] [place] [address] * Scan, Peripheral Blood (09/17/2024 12:39 AM EDT) RBC Morphology Normal 09/17/2024 1:33 AM EDT [facility] Platelet Estimate Normal Normal 09/17/2024 1:33 AM EDT [facility] Blood VENOUS BLOOD SPECIMEN / Unknown IP Care Team Draw / Unknown 09/17/2024 12:39 AM EDT 09/17/2024 12:54 AM EDT Jah Altman APRN HEMATOLOGY ORDERAB LES Performing Organization Address City/[facility]/ZIP Co de Phone Number [facility] [place] [address] * (ABNORMAL) Osmolality (09/17/2024 12:39 AM EDT) Osmolality 309(H) 275 - 295 mOsm/kg 09/17/2024 1:40 AM EDT [facility] Blood VENOUS BLOOD SPECIMEN / Unknown IP Care Team Draw / Unknown 09/17/2024 12:39 AM EDT 09/17/2024 12:54 AM EDT Serenity Espinosa MD CHEMISTRY ORDERABLES Performing Organization Address City/[facility]/ZIP Co de Phone Number [facility] [place] [address] * APTT (09/17/2024 12:39 AM EDT) Partial Thromboplastin Time 27 25 - 37 sec 09/17/2024 1:08 AM EDT [facility] Comment: The PTT is NOT appropriate for heparin monitoring. Use the Anti-Xa level for heparin monitoring (HEP UFH) or LMWH monitoring (HEP LMW). A PTT less than 37 seconds generally indicates adequate hemostasis. Blood VENOUS BLOOD SPECIMEN / Unknown IP Care Team Draw / Unknown 09/17/2024 12:39 AM EDT 09/17/2024 12:54 AM EDT Serenity Espinosa MD HEMATOLOGY ORDERABLE S Performing Organization Address [facility] Co de Phone Number [facility] [place] [address] * Prothrombin Time (09/17/2024 12:39 AM EDT) Prothrombin Time 11.7 9.4 - 12.5 sec 09/17/2024 1:08 AM EDT [facility] International Normalization Ratio 1.0 <=4.9 09/17/2024 1:08 AM EDT [facility] Comment: An INR < 2.0 indicates [...] MD HEMATOLOGY ORDERABLE S Performing Organization Address [facility]/ZIP Co de Phone Number [facility] [place] [address] * Phosphorus (09/17/2024 12:39 AM EDT) Phosphorus 2.8 2.5 - 4.5 mg/dL 09/17/2024 1:26 AM EDT [facility] Blood VENOUS BLOOD SPECIMEN / Unknown IP Care Team Draw / Unknown 09/17/2024 12:39 AM EDT 09/17/2024 12:54 AM EDT Librado Patel MD CHEMISTRY ORDERABLES [facility] [place] [address] * (ABNORMAL) Basic Metabolic Panel (09/17/2024 12:39 AM EDT) Glucose 218(H) 65 - 199 mg/dL 09/17/2024 1:26 AM EDT [facility] Comment:Glucose Concentratio n >=200 mg/dL plus symptoms is consistent with Diabetes Mellitus. Blood Urea Nitrogen 15 8 - 18 mg/dL 09/17/2024 1:[facility] Creatinine 0.67(L) 0.70 - 1.20 mg/dL 09/17/2024 1:26 AM [facility] Sodium 141 135 - 145 mMol/L 09/17/2024 1:26 AM [facility] Potassium 4.4 3.5 - 5.0 mMol/L 09/17/2024 1:26 AM EDT [facility] Chloride 108(H) 98 - 107 mMol/L 09/17/2024 1:26 AM [facility] Carbon Dioxide 21(L) 22 - 31 mMol/L 09/17/2024 1:26 AM [facility] Anion Gap 12 5 - 15 mMol/L 09/17/2024 1:26 AM [facility] Calcium 9.1 8.5 - 10.5 mg/dL 09/17/2024 1:26 AM [facility] Est Glomerular Filtration Rate - Female 93 mL/min/1. 73 m?? 09/17/2024 1:26 AM EDT [facility] Comment: This patient's estimated GFR [...] AM EDT Librado Patel MD CHEMISTRY ORDERABLES [facility] [place] [address] * Magnesium (09/17/2024 12:39 AM EDT) Magnesium 0.73 0.69 - 1.07 mMol/L 09/17/2024 1:26 AM EDT [facility] Blood VENOUS BLOOD SPECIMEN / Unknown IP Care Team Draw / Unknown 09/17/2024 12:39 AM EDT 09/17/2024 12:54 AM EDT Librado Patel MD CHEMISTRY ORDERABLES [facility] [place] [address] * (ABNORMAL) CBC (with Diff) (09/17/2024 12:39 AM EDT) White Blood Cell 23.60(H) 4.00 - 9.50 x10(3)/mc L 09/17/2024 1:33 AM EDT [facility] Red Blood Cell 4.29 4.00 - 5.21 x10(6)/mc L 09/17/2024 1:33 AM [facility] Hemoglobin 12.9 11.7 - 15.5 g/dL 09/17/2024 1:33 AM [facility] Hematocrit 38.5 35.7 - 45.8 % 09/17/2024 1:33 AM [facility] Mean Cell Volume 89.7 82.6 - 94.4 fL 09/17/2024 1:33 AM [facility] Mean Cell Hemoglobin 30.1 27.1 - 32.0 pg 09/17/2024 1:33 AM [facility] Mean Cell Hemoglobin Concentration 33.5 31.7 - 35.0 g/dL 09/17/2024 1:33 AM [facility] Platelet 327 145 - 357 x10(3)/mc L 09/17/2024 1:33 AM [facility] Mean Platelet Volume 10.2 7.6 - 12.9 fL 09/17/2024 1:33 AM [facility] RDW Standard Deviation 40.6 37.0 - 46.0 fL 09/17/2024 1:33 AM [facility] RDW coefficient of variation 12.4 11.5 - 14.1 % 09/17/2024 1:33 AM [facility] NRBC% auto 0.0 % 09/17/2024 1:33 AM [facility] NRBC Absolute <0.01 <0.01 x10(3)/mc L 09/17/2024 1:33 AM [facility] Neutrophil % 90.5 % 09/17/2024 1:33 AM [facility] Comment:This is an appended report. These results have been appended to a previously preliminary verified report. Neutrophil Absolute (ANC) - Automated 21.36(H) 1.70 - 6.10 x10(3)/mc L 09/17/2024 1:33 AM [facility] Comment:This is an appended report. These results have been appended to a previously preliminary verified report. Lymph % 3.5 % 09/17/2024 1:33 AM [facility] Comment:This is an appended report. These results have been appended to a previously preliminary verified report. Lymph Absolute 0.83(L) 0.90 - 3.20 x10(3)/mc L 09/17/2024 1:33 AM [facility] Comment:This is an appended report. These results have been appended to a previously preliminary verified report. Monocyte % 5.2 % 09/17/2024 1:33 AM [facility] Comment:This is an appended report. These results have been appended to a previously preliminary verified report. Monocyte Absolute 1.22(H) 0.30 - 0.90 x10(3)/mc L 09/17/2024 1:33 AM [facility] Comment:This is an appended report. These results have been appended to a previously preliminary verified report. Eos % 0.0 % 09/17/2024 1:33 AM [facility] Comment:This is an appended report. These results have been appended to a previously preliminary verified report. Eos Absolute <0.04 0.00 - 0.40 x10(3)/mc L 09/17/2024 1:33 AM [facility] Comment:This is an appended report. These results have been appended to a previously preliminary verified report. Basophil % 0.2 % 09/17/2024 1:33 AM [facility] Comment:This is an appended report. These results have been appended to a previously preliminary verified report. Baso Absolute 0.04 0.00 - 0.10 x10(3)/mc L 09/17/2024 1:33 AM [facility] Comment:This is an appended report. These results have been appended to a previously preliminary verified report. Immature Gran % 0.6 % 1:33 AM [facility] Comment:This is an appended report. These results have been appended to a previously preliminary verified report. Immature Gran Absolute 0.15(H) 0.00 - 0.04 x10(3)/mc L 09/17/2024 1:33 AM EDT [facility] Comment:This is an appended report. These results have been appended to a previously preliminary verified report. Blood VENOUS BLOOD SPECIMEN / Unknown IP Care Team Draw / Unknown 09/17/2024 12:39 AM EDT 09/17/2024 12:54 AM EDT Librado Patel MD HEMATOLOGY ORDERABLE S Performing Organization Address City/[facility]/ZIP Co de Phone Number [facility] [place] [address] * (ABNORMAL) Glucose (09/17/2024 12:39 AM EDT) Glucose 218(H) 65 - 199 mg/dL 09/17/2024 1:26 AM EDT [facility] Comment:Glucose Concentratio n >=200 mg/dL plus symptoms is consistent with Diabetes Mellitus. Blood VENOUS BLOOD SPECIMEN / Unknown IP Care Team Draw / Unknown 09/17/2024 12:39 AM EDT 09/17/2024 12:54 AM EDT Jah Altman APRN CHEMISTRY ORDERABL ES Performing Organization Address City/[facility]/ZIP Co de Phone Number [facility] [place] [address] * Triglyceride (09/17/2024 12:39 AM EDT) Triglyceride 147 mg/dL 09/17/2024 1:26 AM EDT [facility] Comment: Normal: <150 mg/dL Borderline High: 150-199 mg/dL High: 200-499 mg/dL Very High: > or =500 mg/dL Blood VENOUS BLOOD SPECIMEN / Unknown IP Care Team Draw / Unknown 09/17/2024 12:39 AM EDT 09/17/2024 12:54 AM EDT Jah Altman HOG CONFINEMENT SYSTEM MANAGER CHEMISTRY ORDERABL ES [facility] [place] [address] * HDL/Cholesterol Profile (09/17/2024 12:39 AM EDT) Cholesterol, Total 203 mg/dL 09/17/2024 1:26 AM EDT [facility] Comment: Desirable: < 200 mg/dL Borderline High: 200 - 239 mg/dL High: > or = 240 mg/dL HDL Cholesterol 45 mg/dL 1:26 AM EDT [facility] Comment:Female: High Risk: < 50 mg/dL Non-HDL Cholesterol 158 mg/dL 09/17/2024 1:26 AM EDT [facility] Comment: Desirable: <130 mg/dL Above Desirable: 130-159 mg/dL Borderline High: 160-189 mg/dL High: 190-219 mg/dL Very High: > or = 220 mg/dL Blood VENOUS BLOOD SPECIMEN / Unknown IP Care Team Draw / Unknown 09/17/2024 12:39 AM EDT 09/17/2024 12:54 AM EDT Narrative [facility] - 09/17/2024 1:26 AM EDT It [...] ACC/AHA Guidelines (most recently Jackie main al. [facility] 08/27/22): * For individuals with atherosclerotic cardiovascular [...] disease) Jah Altman APRN CHEMISTRY ORDERABL ES [facility] [place] [address] * LDL Cholesterol, Direct (09/17/2024 12:39 AM EDT) [facility] LDL Cholesterol, Direct 133 mg/dL 09/17/2024 1:26 AM EDT [facility] Comment: Desirable: <100 mg/dL Above Desirable: [...] EDT Jah Altman APRN CHEMISTRY ORDERABL ES [facility] [place] [address] * (ABNORMAL) Hemoglobin A1c (09/17/2024 12:39 AM EDT) Pathologist [facility] Hemoglobin A1c 6.1(H) 4.3 - 5.6 % 09/17/2024 1:26 AM EDT [facility] Comment: Per ADA guidelines, without clear [...] red blood cell turnover may not be district representative of glycemic control. Reference Interval: 4.3 - 5.6% 5.7 - 6.4%: Consistent with prediabetes >=6.5%: Consistent with diagnosis of diabetes mellitus Estimated Average Glucose 09/17/2024 1:26 AM EDT [facility] Comment:Estimated Average Gl ucose not appropriate for patients over 70 years of age. Blood VENOUS BLOOD SPECIMEN / Unknown IP Care Team Draw / Unknown 09/17/2024 12:39 AM EDT 09/17/2024 12:54 AM EDT Narrative [facility] - 09/17/2024 1:26 AM EDT Estimated average glucose (eAG) is calculated from the equation described in: Amari MOSLEY, Wm J, Tyree R, et al. ??Translating the A1C assay into estimated average glucose values. ??Diabetes Care 2008:31(8):5383-9407. Additional resources are available on the ADA website (diabetes.org). Jah Altman APRN CHEMISTRY ORDERABL ES [facility] [place] [address] * CT Venogram Brain (09/16/2024 11:21 PM EDT) [employer] WORKSTATION ID [id number] RAD Anatomical Region Laterality Modality Head Computed [...] who have questions please contact the health cna caregiver that requested your imaging first. ? Narrative [...] patients who have questions please contactthe health cna caregiver that requested your imaging first. Serenity Espinosa MD IMG CT ORDERABLES * CT Head wo Contrast (Generic) (09/16/2024 11:21 PM EDT) [employer] Signature WORKSTATION ID [id number] RAD Anatomical Region Laterality Modality Head Computed [...] who have questions please contact the health cna caregiver that requested your imaging first. ? Narrative [...] patients who have questions please contactthe health cna caregiver that requested your imaging first. Serenity Espinosa MD IMG CT ORDERABLES * XR Abdomen 1 view (Generic) (09/16/2024 11:00 PM EDT) WORKSTATION ID [id number] RAD Anatomical Region Laterality Modality Abdomen N/A [...] who have questions please contact the health cna caregiver that requested your imaging first. ? Narrative 09/17/2024 12:09 AM EDT EXAMINATION: XR [...] patients who have questions please contactthe health cna caregiver that requested your imaging first. Serenity Espinosa MD IMG DX ORDERABLES * XR Chest One View (09/16/2024 11:00 PM EDT) WORKSTATION ID [id number] RAD Anatomical Region Laterality Modality Chest N/A [...] who have questions please contact the health cna caregiver that requested your imaging first. ? Narrative 09/17/2024 12:09 AM EDT EXAMINATION: XR [...] patients who have questions please contactthe health cna caregiver that requested your imaging first. Jah Nelson Agapito HOG CONFINEMENT SYSTEM MANAGER IMG DX ORDERABLES * Prepare RBC (09/16/2024 10:50 PM EDT) [facility] Signature Status Information Returned [facility] Product Identification RBC [facility] Unit Number [id number] [facility] Product Code [id number] [facility] Unit Blood Type OPOS [facility] Specimen Expiration Date [facility] Volulme 350 [facility] Issue [facility] / Time [facility] Status Information Returned [facility] Product Identification RBC [facility] Unit Number [id number] [facility] Product Code [id number] [facility] Unit Blood Type OPOS [facility] Specimen Expiration Date [facility] Volulme 350 [facility] Issue Date / Time [facility] Status Information Returned [facility] Product Identification RBC [facility] Unit Number [id number] [facility] Product Code [id number] [facility] Unit Blood Type OPOS [facility] Specimen Expiration Date [facility] Volulme 350 [facility] Issue Date / Time [facility] Blood 09/16/2024 5:3 6 PM EDT Duane Lazcano MD BLOOD BANK PRODUCT O RDERABLES Performing Organization Address City/[facility] Co de Phone Number [facility] [place] [address] * POC, GLUCOSE (09/16/2024 10:05 PM EDT) Glucometer, POC 170 65 - 199 mg/dL 09/16/2024 10:06 PM EDT [facility] Comment:Supplemental ranges: <140 mg/dL before meals <180 mg/dL all other times of the day. Blood CAPILLARY BLOOD / Unknown 09/16/2024 10:05 PM EDT 09/16/2024 10:06 PM EDT Serenity Espinosa MD POINT OF CARE TEST O RDERABLES [facility] [place] [address] * (ABNORMAL) Blood Gas, Arterial POC (09/16/2024 8:22 PM EDT) pH, Arterial 7.33(L) 7.35 - 7.45 09/17/2024 8:50 AM EDT [facility] PCO2, Arterial 43 35 - 45 mmHg 09/17/2024 8:50 AM EDT [facility] PO2, Arterial 158(H) 85 - 104 mmHg 09/17/2024 8:50 AM EDT [facility] Bicarbonate, Arterial 22.1 20.0 - 26.0 mmol/L 09/17/2024 8:50 AM [facility] Base Excess, Arterial -3.8(L) -3.0 - 3.0 mmol/L 09/17/2024 8:50 AM EDT [facility] Hemoglobin, Arterial 13.7 11.7 - 15.5 g/dL 09/17/2024 8:50 AM [facility] Oxyhemoglobin, Arterial 98.0(H) 94.0 - 97.0 % 09/17/2024 8:50 AM [facility] Carboxyhemoglobin , Arterial 0.5 % 09/17/2024 8:50 AM [facility] Comment: Nonsmokers: 0.5-1.5% COHB ?? Smokers: Variable ??but usually less than 10% ?? Toxic: 20-30% COHB ?? Lethal: Greater than 60% COHB Methemoglobin, Arterial 0.3 <=1.5 % 09/17/2024 8:50 AM EDT [facility] Sodium, Arterial 141 135 - 145 mmol/L 09/17/2024 8:50 AM [facility] Potassium, Arterial 4.1 3.5 - 5.0 mmol/L 09/17/2024 8:50 AM EDT [facility] Chloride, Arterial 104 98 - 107 mmol/L 09/17/2024 8:50 AM EDT [facility] Lactate, Arterial 4.0(HHH) 0.5 - 2.2 mmol/L 09/17/2024 8:50 AM EDT [facility] IONIZED CALCIUM, ARTERIAL 1.18 1.15 - 1.33 mmol/L 09/17/2024 8:50 AM EDT [facility] Glucose, Arterial 165 65 - 199 mg/dL 09/17/2024 8:50 AM EDT [facility] Comment:Glucose Concentratio n >=200 mg/dL plus symptoms is consistent with Diabetes Mellitus. Blood ARTERIAL BLOOD / Unknown 09/16/2024 8:22 PM EDT 09/17/2024 8:50 AM EDT Serenity Espinosa MD POINT OF CARE TEST O RDERABLES [facility] [place] [address] * (ABNORMAL) Surgical Pathology (09/16/2024 7:20 PM EDT) Case Report Surgical Pathology Report ? Case: [id number] ? Authorizing Provider: ??Sushila Espinal MD ? Collected: ? 09/16/20241919 ? Ordering Location: ? Main Operating Room [place] ?? Received: ?09/16/20242123 ? [facility] ? Hospital ? Pathologist: ? Juanito Frye [...] evidence of membrane formation. Small fragments of [employer] parenchyma and blood vessels are present in [...] as specified in Clinical Information Dx: R [facility] OR 10 ; [id number] 09/29/2024 12:07 PM [facility] Gross Description A. Brain, Right, Right-Sided Infraparenchymal Hemorrhage. A - Labeled/Fixative: Right sided intraparenchymal hemorrhage, fresh. Quantity/Size: Multiple, 9 x 7 x 4 cm. Tissue Description: Aggregate of blood clot with scant interspersed white tissue. Sections/Processing: Coach sections in 2 cassettes labeled A1-A2. sns 09/29/2024 12:07 PM [facility] Result Note THIS RESULT REQUIRES PHYSICIAN/JESSI FOLLOW UP(A) 09/29/2024 12:07 PM [facility] Tissue BRAIN STRUCTURE / Unknown 09/16/2024 7:20 PM EDT 09/16/2024 9:24 PM EDT Comment:Dx: Mary [facility] OR 10 ; [id number] Sushila Espinal MD PATHOLOGY/CYTOLOGY O RDERABLES [facility] [place] [address] * (ABNORMAL) Blood Gas, Arterial POC (09/16/2024 6:23 PM EDT) pH, Arterial 7.42 7.35 - 7.45 09/17/2024 8:49 AM EDT [facility] PCO2, Arterial 31(L) 35 - 45 mmHg 09/17/2024 8:49 AM EDT [facility] PO2, Arterial 121(H) 85 - 104 mmHg 09/17/2024 8:49 AM EDT [facility] Bicarbonate, Arterial 19.6(L) 20.0 - 26.0 mmol/L 09/17/2024 8:49 AM [facility] Base Excess, Arterial -4.9(L) -3.0 - 3.0 mmol/L 09/17/2024 8:49 AM [facility] Hemoglobin, Arterial 13.4 11.7 - 15.5 g/dL 09/17/2024 8:49 AM [facility] Oxyhemoglobin, Arterial 97.7(H) 94.0 - 97.0 % 09/17/2024 8:49 AM [facility] Carboxyhemoglobin , Arterial 0.2 % 09/17/2024 8:49 AM [facility] Comment: Nonsmokers: 0.5-1.5% COHB ?? Smokers: Variable ??but usually less than 10% ?? Toxic: 20-30% COHB ?? Lethal: Greater than 60% COHB Methemoglobin, Arterial 0.2 <=1.5 % 09/17/2024 8:49 AM [facility] Sodium, Arterial 138 135 - 145 mmol/L 09/17/2024 8:49 AM [facility] Potassium, Arterial 4.2 3.5 - 5.0 mmol/L 09/17/2024 8:49 AM [facility] Chloride, Arterial 105 98 - 107 mmol/L 09/17/2024 8:49 AM [facility] Lactate, Arterial 2.8(H) 0.5 - 2.2 mmol/L 09/17/2024 8:49 AM [facility] IONIZED CALCIUM, ARTERIAL 1.11(L) 1.15 - 1.33 mmol/L 09/17/2024 8:49 AM [facility] Glucose, Arterial 169 65 - 199 mg/dL 09/17/2024 8:49 AM [facility] Comment:Glucose Concentratio n >=200 mg/dL plus symptoms is consistent with Diabetes Mellitus. Blood ARTERIAL BLOOD / Unknown 09/16/2024 6:23 PM EDT 09/17/2024 8:49 AM EDT Serenity Espinosa MD POINT OF CARE TEST O RDERABLES [facility] [place] [address] * (ABNORMAL) Blood Gas, Arterial POC (09/16/2024 5:49 PM EDT) pH, Arterial 7.34(L) 7.35 - 7.45 09/17/2024 8:49 AM EDT [facility] PCO2, Arterial 35 35 - 45 mmHg 09/17/2024 8:49 AM EDT [facility] PO2, Arterial 181(H) 85 - 104 mmHg 09/17/2024 8:49 AM EDT [facility] Bicarbonate, Arterial 18.5(L) 20.0 - 26.0 mmol/L 09/17/2024 8:49 AM EDT [facility] Base Excess, Arterial -7.3(L) -3.0 - 3.0 mmol/L 09/17/2024 8:49 AM EDT [facility] Hemoglobin, Arterial 12.8 11.7 - 15.5 g/dL 09/17/2024 8:49 AM EDT [facility] Oxyhemoglobin, Arterial 98.1(H) 94.0 - 97.0 % 09/17/2024 8:49 AM EDT [facility] Carboxyhemoglobin , Arterial 0.3 % 09/17/2024 8:49 AM EDT [facility] Comment: Nonsmokers: 0.5-1.5% COHB ?? Smokers: Variable ??but usually less than 10% ?? Toxic: 20-30% COHB ?? Lethal: Greater than 60% COHB Methemoglobin, Arterial 0.5 <=1.5 % 09/17/2024 8:49 AM EDT [facility] Sodium, Arterial 134(L) 135 - 145 mmol/L 09/17/2024 8:49 AM EDT [facility] Potassium, Arterial 4.1 3.5 - 5.0 mmol/L 09/17/2024 8:49 AM EDT [facility] Chloride, Arterial 103 98 - 107 mmol/L 09/17/2024 8:49 AM EDT [facility] Lactate, Arterial 1.9 0.5 - 2.2 mmol/L 09/17/2024 8:49 AM EDT [facility] IONIZED CALCIUM, ARTERIAL 1.07(L) 1.15 - 1.33 mmol/L 09/17/2024 8:49 AM EDT [facility] Glucose, Arterial 178 65 - 199 mg/dL 09/17/2024 8:49 AM EDT [facility] Comment:Glucose Concentratio n >=200 mg/dL plus symptoms is consistent with Diabetes Mellitus. Blood ARTERIAL BLOOD / Unknown 09/16/2024 5:49 PM EDT 09/17/2024 8:49 AM EDT Duane Lazcano MD POINT OF CARE TEST O RDERABLES [facility] [place] [address] * CT Head wo Contrast (Generic) (09/16/2024 5:26 PM EDT) [employer] WORKSTATION ID [id number] RAD Anatomical Region Laterality Modality Head Computed [...] who have questions please contact the health cna caregiver that requested your imaging first. ? Narrative [...] patients who have questions please contactthe health cna caregiver that requested your imaging first. Duane Lazcano MD IMG CT ORDERABLES * Triglyceride (09/16/2024 5:07 PM EDT) [facility] Triglyceride 174 mg/dL 09/16/2024 10:29 PM EDT [facility] Comment: Normal: <150 mg/dL Borderline High: 150-199 mg/dL High: 200-499 mg/dL Very High: > or =500 mg/dL Blood VENOUS BLOOD SPECIMEN / Unknown 09/16/2024 5:07 PM EDT 09/16/2024 5:31 PM EDT Jah Altman HOG CONFINEMENT SYSTEM MANAGER CHEMISTRY ORDERABL ES [facility] [place] [address] * Green Tube HOLD (09/16/2024 5:07 PM EDT) Pathologist [facility] Green Hold Hold for Add-on 09/16/2024 7:01 PM EDT [facility] Blood VENOUS BLOOD SPECIMEN / Unknown 09/16/2024 5:07 PM EDT 09/16/2024 5:31 PM EDT Duane Lazcano MD CHEMISTRY ORDERABLES Performing Organization Address [facility] Co de Phone Number [facility] [place] [address] * APTT (09/16/2024 5:07 PM EDT) Partial Thromboplastin Time 26 25 - 37 sec 09/16/2024 5:41 PM EDT [facility] Comment: The PTT is NOT appropriate for heparin monitoring. Use the Anti-Xa level for heparin monitoring (HEP UFH) or LMWH monitoring (HEP LMW). A PTT less than 37 seconds generally indicates adequate hemostasis. Blood VENOUS BLOOD SPECIMEN / Unknown IP Care Team Draw / Unknown 09/16/2024 5:07 PM EDT 09/16/2024 5:23 PM EDT Duane Lazcano MD HEMATOLOGY ORDERABLE S Performing Organization Address [facility] Co de Phone Number [facility] [place] [address] * Prothrombin Time (09/16/2024 5:07 PM EDT) Prothrombin Time 11.9 9.4 - 12.5 sec 09/16/2024 5:41 PM EDT [facility] International Normalization Ratio 1.0 <=4.9 09/16/2024 5:41 PM EDT [facility] Comment: An INR < 2.0 indicates [...] EDT Duane Lazcano MD HEMATOLOGY ORDERABLE S [facility] [place] [address] * (ABNORMAL) CBC (with Diff) (09/16/2024 5:07 PM EDT) White Blood Cell 16.82(H) 4.00 - 9.50 x10(3)/mc L 09/16/2024 5:32 PM EDT [facility] Red Blood Cell 4.72 4.00 - 5.21 x10(6)/mc L 09/16/2024 5:32 PM EDT [facility] Hemoglobin 14.2 11.7 - 15.5 g/dL 09/16/2024 5:32 PM EDT [facility] Hematocrit 42.8 35.7 - 45.8 % 09/16/2024 5:32 PM EDT [facility] Mean Cell Volume 90.7 82.6 - 94.4 fL 09/16/2024 5:32 PM EDT [facility] Mean Cell Hemoglobin 30.1 27.1 - 32.0 pg 09/16/2024 5:32 PM EDT [facility] Mean Cell Hemoglobin Concentration 33.2 31.7 - 35.0 g/dL 09/16/2024 5:32 PM EDT [facility] Platelet 269 145 - 357 x10(3)/mc L 09/16/2024 5:32 PM EDT [facility] Mean Platelet Volume 10.3 7.6 - 12.9 fL 09/16/2024 5:32 PM EDT [facility] RDW Standard Deviation 40.4 37.0 - 46.0 fL 09/16/2024 5:32 PM EDT [facility] RDW coefficient of variation 12.3 11.5 - 14.1 % 09/16/2024 5:32 PM [facility] NRBC% auto 0.0 % 09/16/2024 5:32 PM [facility] NRBC Absolute <0.01 <0.01 x10(3)/mc L 09/16/2024 5:32 PM [facility] Neutrophil % 79.2 % 09/16/2024 5:32 PM [facility] Neutrophil Absolute (ANC) - Automated 13.33(H) 1.70 - 6.10 x10(3)/mc L 09/16/2024 5:32 PM [facility] Lymph % 15.0 % 09/16/2024 5:32 PM [facility] Lymph Absolute 2.52 0.90 - 3.20 x10(3)/mc L 09/16/2024 5:32 PM [facility] Monocyte % 4.0 % 09/16/2024 5:32 PM [facility] Monocyte Absolute 0.67 0.30 - 0.90 x10(3)/mc L 09/16/2024 5:32 PM [facility] Eos % 1.1 % 09/16/2024 5:32 PM [facility] Eos Absolute 0.18 0.00 - 0.40 x10(3)/mc L 09/16/2024 5:32 PM [facility] Basophil % 0.2 % 09/16/2024 5:32 PM [facility] Baso Absolute <0.04 0.00 - 0.10 x10(3)/mc L 09/16/2024 5:32 PM [facility] Immature Gran % 0.5 % 5:32 PM [facility] Immature Gran Absolute 0.09(H) 0.00 - 0.04 x10(3)/mc L 09/16/2024 5:32 PM [facility] Blood VENOUS BLOOD SPECIMEN / Unknown IP Care Team Draw / Unknown 09/16/2024 5:07 PM EDT 09/16/2024 5:23 PM EDT Duane Lazcano MD HEMATOLOGY ORDERABLE S Performing Organization Address City/[facility]/ZIP Co de Phone Number [facility] [place] [address] * EKG 12 Lead (09/16/2024 3:33 PM EDT) Ventricular rate 75 BPM MUSE SYSTEM Atrial Rate 75 BPM MUSE SYSTEM P-R Interval 164 ms MUSE SYSTEM QRS Duration 72 ms MUSE SYSTEM Q-T Interval 400 ms MUSE SYSTEM QTC Calculated (Bezet) 446 ms MUSE SYSTEM Calculated P [place] 36 degrees MUSE SYSTEM Calculated R [place] -17 degrees MUSE SYSTEM Calculated T [place] 28 degrees MUSE SYSTEM INTERPRETATION Normal sinus [...] Modality Other Narrative 09/16/2024 6:52 PM EDT ?[facility] ? Cardiac Catheterization/Intervention Report ? Patient Name: Damion Lucero Henriquez. ? Procedure Date: 09/16/2024 ? A #: [id number] ? Primary Physician: Causey, Duane V ? Case #: [id number] ? File Name: [id number] ? Catheterization Order Number: [id number] ? [facility] ? Final Report [place], [place] ? Patient Name: ? [place] J. Damion ? ID#: ?[id number] ? : ?1950 ? Procedure Date: ? September 16, 2024 ? Case #: ? [id number] ? Room: ? 6 ? Case Physicians: ?Duane Causey M.D. ? Start: ?14:12 ?Tl Gamino M.D. ?Admission: ??09/16/2024 ?Dr Chicas MBerkley. ?Fellow: ? Amari Colbert P.A. ? Referring Physician: ??Iliana Carpenter APRN ? [...] procedure was Elective. The indication for ?the cardiac cath lab manager visit is cardiac arrhythmia. Chest pain symptom assessment ?was: Asymptomatic. ? Technique: ?A 17Fr sheath was inserted in the right femoral vein utilizing the ?Seldinger technique. The left atrium was injected utilizing a 6Fr PIGTAIL ?catheter. Left atrial pressure was performed with a 6Fr ANGLED PIGTAIL ?catheter. Transseptal puncture was performed with an 8.5Fr Taumatropo AnimationG RF ?Needle. 7,000 units of heparin were [...] for atrial fibrillation. ?The patient had a [id number] score of 4, a HAS-BLED score of [...] A Watchman ?FLX Pro 27 mm (s/l/n [id number]) was prepared and deployed using standard ?technique. [...] to nor was it given in the ?cardiac cath lab manager. ?Recommended anti-platelet/anti-thrombotic regimen: ?Continue aspirin 81 mg daily for indefinitely. ?These recommendations are made at the time of the intervention. Patient ?and provider preferences or a changing clinical situation may require ?modification of this regimen. Consult [facility] [place] for ?questions. ? [...] transesophageal echo during cath. Dr. Hunt ?Anesthesia, Ovidio performed the intubation-non cath physician and ?anesthesia. ? Duane Causey M.D. ? Electronically Signed by: Duane Causey M.D. ? Report Finalized: 09/16/2024 ??18:48 ? Report Last Ammended: 09/20/2024 ??11:16 ? Procedure Note Duane Causey MD - 09/20/2024 [facility] Cardiac Catheterization/Intervention Report Patient Name: Lucero Bruno Procedure Date: 09/16/2024 A #: [id number] Primary Physician: Duane Causey V Case #: [id number] File Name: [id number] Catheterization Order Number: [id number] [facility] FinalReport [place], [place] Patient Name: [place] J. Damion ID#:[id number] :1950 Procedure Date: September 16, 2024 Case [...] was designated as ASA Class III. The [facility] clinicalfrailty scale is 5: Mildly Frail. Diagnostic Tests: Prior Coronary Angiography: LV ejection fraction within 6 months is 75%. Electrocardiography: EKG was assessed by ECG. Medications Prior to Procedure: Aspirin and Calcium Channel Blocking Agent. Indications for Diagnostic Cath: The priority of the diagnostic procedure was Elective. Theindication for the cardiac cath lab manager visit is cardiac arrhythmia. Chest pain symptomassessment [...] performed for atrialfibrillation. The patient had a [id number] score of 4, a HAS-BLED score of [...] echo guidance using an 8.5 Fr VersaCross [id number] degree introducer and VersaCross pigtail RF wire needle. The left atrial occlusion procedure was performed with fluoroscopyand MONICA guidance. An angled pigtail was placed in the left atrialappendage and exchanged for a 17 Fr Watchman TruSteer delivery sheath. AWatchman FLX Pro 27 mm (s/l/n [id number]) was prepared and deployed usingstandard technique. The [...] prior to nor was it given inthe cardiac cath lab manager. Recommended anti-platelet/anti-thrombotic regimen: Continue aspirin 81 mg daily for indefinitely. These recommendations are made at the time of the intervention.Patient and provider preferences or a changing clinical situation mayrequire modification of this regimen. Consult [facility] [place]ventional Cardiology[place] questions. Conclusions: * [...] PM EDT ? Transesophageal Echocardiogram Report Name: DAMION LUCERO J ? Study Date: 09/16/2024 01:44 PM ?Patient Location: ^CA06^A : 1950 ? Account: [id number] Age: 74 yrs Gender: Female Ordering Physician: [...] appearance of pericardium. Single atrial septostomy with znqv-fh-[id number] flow. See report for additional findings. Procedure [...] is a single atrial septostomy site present. Afsh-ht-safao flow is present. The appendage orifice measured [...] - 09/16/2024 Transesophageal Echocardiogram Report Name: YUNIOR BRUNOLIE [place] Study Date: 09/16/2024 01:44 PM Patient Location: ^CA06^A : 1950 Account:[id number] Age: 74 yrs Gender: Female Ordering Physician: [...] in appearance of pericardium. Single atrialseptostomy with vkfb-qp-wmdge flow. See report for additional findings. Procedure [...] is a single atrial septostomy site present. Ilqj-ce-qrwbe flow is present.The appendage orifice measured 21 [...] RDR/RSLT documented in this encounter Visit Diagnoses Not on filedocumented in this encounter Admitting Diagnoses Diagnosis Presence of Watchman left atrial appendage closure device documented in this encounter Administered Medications Inactive Administered Medications - up to 3 most recent administrations Medication Order MAR Action Action Date Dose Rate Site acetaminophen (Tylenol) (32.02 mg/mL) oral liquid 975 mg 975 mg, Per G Tube, EVERY 6 HOURS PRN, Starting on 10/04/24 at 1538, Until Fri10/12/24 at 1555, Fever, [...] Given 10/08/2024 8:36 PM EST 975 mg amLODIPine (Norvasc) tablet 5 mg 5 mg, Oral, DAILY, First dose (after last modification) on Fri10/12/24 at 0900, Until Discontinued, Hold if SBP <100mmHg or MAP <65mmHg, Routine Given 10/12/2024 8:11 AM EST 5 mg dextrose 50% intravenous solution 25 g 25 [...] PM EST 250 mLs dilTIAZem (Cardizem) tablet 90 mg 90 mg, [...] Given 10/12/2024 12:00 AM EST 90 mg docusate sodium (Colace) (10 mg/mL) oral liquid 100 mg 100 mg, Oral, 2 TIMES DAILY PRN, Starting on Fri10/11/24 at 1506, Until Fri10/12/24 at 1555, Constipation, May give PO or Per Tube. Hold for loose stool., Routine enoxaparin (Lovenox) (40 mg/0.4 mL) subcutaneous injection 40 mg 40 mg, Subcutaneous, NIGHTLY, First dose on Fri09/29/24 at 2100, Until Discontinued, Routine Given 10/11/2024 8:35 PM EST 40 mg Given 10/10/2024 8:38 PM EST 40 mg Ri ght Lower Quadrant Given 10/09/2024 8:14 PM EST 40 mg free water for feeding tube 30 mL 30 mL, FEEDING TUBE, EVERY 4 HOURS SCHEDULED, First dose on Fri10/07/24 at 1230, Until Discontinued, Routine Given 10/12/2024 12:00 PM EST 30 mLs Given 10/12/2024 8:00 AM EST 30 mLs Given 10/12/2024 12:00 AM EST 30 mLs glucagon (Glucagen) (1 mg/mL) injection solution 1 [...] weight of tube = 37.5 grams.), Routine insulin lispro (HumaLOG;Admelog) (100 unit/mL) subcutaneous injection [...] Warning Vesicant/Irritant Medication , Radiology Contrast, Routine ipratropium-albuteroL (Duoneb) 0.5 mg-3 mg(2.5 mg base)/3 mL nebulizer solution 3 mL 3 mL, Nebulization, EVERY 4 HOURS, First dose on Fri09/21/24 at 1230, Until Discontinued, Routine Given 10/12/2024 12:18 PM EST 3 mLs Given 10/12/2024 8:12 AM EST 3 mLs Given 10/11/2024 11:54 PM EST 3 mLs labetaloL (Normodyne) (5 mg/mL) injection solution 20 mg 20 mg, Intravenous, EVERY 4 HOURS PRN, Starting on Fri09/26/24 at 1820, Until Fri10/12/24 at 1555, High Blood Pressure, < 160 mm Hg, Routine Given 09/27/2024 2:00 AM EST 20 mg Given 09/26/2024 6:24 PM EST 20 mg multivitamin with minerals (Thera M) tablet 1 tablet 1 tablet, Oral, DAILY, First dose (after last modification) on Fri10/12/24 at 0900, Until Discontinued, Routine Given 10/12/2024 8:11 AM EST 1 tablet ondansetron (pf) (Zofran) (2 mg/mL) injection 4 mg 4 mg, Intravenous, EVERY 8 HOURS PRN, Starting on Fri09/28/24 at 1835, Until Fri10/12/24 at 1555, Nausea Given 10/07/2024 3:08 PM EST 4 mg Given 09/30/2024 6:21 PM EST 4 mg Given 09/28/2024 6:40 PM EST 4 mg pantoprazole (Protonix) injection 40 mg 40 mg, Intravenous, DAILY, First dose on Fri09/29/24 at 1115, Until Discontinued, Reconstitute with 10 mL of normal saline to a concentration of 4 mg/mL and inject slowly over 2 minutes. Given 10/12/2024 9:04 AM EST 40 mg Given 10/11/2024 9:03 AM EST 40 mg Given 10/10/2024 8:09 AM EST 40 mg polyethylene glycoL (Miralax) packet 17 g 17 [...] crush, chew, or suck on tablet., Routine protein powder 2 Scoop, Per G Tube, 3 TIMES DAILY, First dose on Fri10/07/24 at 1500, Until Discontinued, Routine Given 10/12/2024 9:00 AM EST 2 Scoops Given 10/11/2024 8:39 PM EST 2 Scoops Given 10/11/2024 3:00 PM EST 2 Scoops sennosides (Senokot) (1.76 mg/mL) oral liquid 17.6 [...] Given 09/26/2024 11:48 AM EST 4 mLs sulfamethoxazole-trimethoprim DS (Bactrim DS) 800-160 mg per tablet 1 tablet 1 tablet, Oral, EVERY 12 HOURS SCHEDULED (2 times per day), 8 doses, First dose on Fri10/12/24 at 0900, Last dose on Fri10/15/24 at 2100, Routine, Indication for (Active or Suspected): Urinary Tract/Pyelonephritis Given 10/12/2024 9:04 AM EST 1 t ablet traZODone (Desyrel) tablet 50 mg 50 mg, Oral, NIGHTLY, First dose (after last modification) on Fri10/11/24 at 2100, Until Discontinued, Routine Given 10/11/2024 8:35 PM EST 50 mg documented in this encounter Active and Recently Administered Medications Times are shown in EST. Scheduled Medication Order 10/10/2024 10/11/2024 10/12/2024 amLODIPine (Norvasc) tablet 5 mg (CANCELED) 5 mg, Per G Tube, DAILY, First dose (after last modification) on Fri10/05/24 at 0900, Until Discontinued, Hold if SBP <100mmHg or MAP <65mmHg, Routine 08 (Given - Provider: Luz Bhat RN) 09 (Given - Provider: Latosha Winston RN) amLODIPine (Norvasc) tablet 5 mg 5 mg, Oral, DAILY, First dose (after last modification) on Fri10/12/24 at 0900, Until Discontinued, Hold if SBP <100mmHg or MAP <65mmHg, Routine 08 (Given - Provider: Lorin Morejon, TRACY) ceFEPime [...] Johnson RN)0809 (New Bag - Provider: Luz Bhat, TRACY)1109 (Stopped - Provider: Luz Bhat RN)1726 (New Bag - Provider: Luz Bhat RN)2026 (Stopped - Provider: Kaelyn Acuña RN)2333 (New Bag - Provider: Kaelyn Acuña RN) 0233 (Stopped - Provider: Kaelyn Acuña RN)0903 (New Bag - Provider: Latosha Winston RN)1203 (Stopped - Provider: Lorin Morejon RN)1610 (New Bag - Provider: Latosha Winston, TRACY)1910 (Stopped - Provider: Latosha Winston, TRACY)2353 (New Bag - Provider: Kaelyn Acuña RN) 0253 (Stopped - Provider: Kaelyn Acuña RN)0812 (New Bag - Provider: Lorin Morejon RN)0842 (Stopped - Provider: Latosha Winston RN - [...] Luz Bhat RN)0910 (Stopped - Provider: Luz A Perlita, RN)1226 (New Bag - Provider: Luz Bhat RN)1326 (Stopped - Provider: Luz Bhat, TRACY)1726 (New Bag - Provider: Luz Bhat, TRACY)1826 (Stopped - Provider: Luz Bhat RN)2038 (New Bag - Provider: Kaelyn Acuña, TRACY)2138 (Stopped - Provider: Kaelyn Acuña, RN) 0904 (New Bag - Provider: Latosha Winston, TRACY)1004 (Stopped - Provider: Latosha Winston, RN)1300 (New Bag - Provider: Latosha Winston, RN)1400 (Stopped - Provider: Latosha Winston, RN)1612 (New Bag - Provider: Latosha Winston, RN)1712 (Stopped - Provider: Latosha Winston, RN)2044 (New Bag - Provider: Kaelyn Acuña, TRACY)2144 (Stopped - Provider: Kaelyn Acuña RN) 0813 (New Bag - Provider: Lorin Morejon, TRACY)0913 (Stopped - Provider: Latosha Winston, TRACY)1217 (New [...] Cameron Johnson, TRACY)0610 (Given - Provider: Cameron Johnson RN)1226 (Given - Provider: Luz Bhat, TRACY)1727 (Given - Provider: Luz Bhat, TRACY)2334 (Given - Provider: Kaelyn Acuña RN) 0556 (Given - Provider: Kaelyn Acuña RN)1211 (Given - Provider: Lorin Morejon, TRACY) dilTIAZem (Cardizem) tablet 90 mg 90 mg, [...] Lorin Morejon RN)1600 (Given - Provider: Latosha Winston, TRACY)2039 (Given - Provider: Kaelyn Acuña RN) 0000 [...] of kangaroo pump)1611 (Given - Provider: Latosha Winston RN - Comment: 156)2043 (Given - Provider: Kaelyn Acuña RN) 0203 (Given - Provider: Kaelyn Acuña RN - Comment: FSBS [phone])0911 (Given - Provider: Lorin Morejon RN - Comment: 149)1224 (Given - Provider: Lorin [...] Morejon RN)1610 (Given - Provider: Latosha Winston RN)203 (Given - Provider: Kaelyn Acuña RN)2354 (Given [...] Winston, TRACY)1500 (Given - Provider: Latosha Winston, TRACY)2038 (Given - Provider: Kaelyn Acuña RN) 0900 (Given - Provider: Lorin Morejon, TRACY) sulfamethoxazole-trimet hoprim DS (Bactrim DS) 800-160 mg [...] 10 mg, Rectal, DAILY PRN, Starting on Fri09/16/24 at 2205, Until Fri10/12/24 at 1555, Constipation, [...] documented as of this encounter Care Teams Race Car Mechanic Relationship Specialty Start Date End Date Leila Manjarrez [address] [place] [address] PCP - General Family Medicine 09/09/24 documented as of this encounter
--- OUTSIDE RECORDS SUMMARY | 2024-10-20 17:24 | XMS_ITS | Encounter Summary ---
Author Organization [facility] Address [facility] [place] [address] Care Team Providers Care Flight Dynamicist Name Role Phone CesarHersonLeila Primary Care Provider [phone] Encounter Details Date Type Department Care Team (Late st Contact Info) Description 09/30/2024 Notes [place] [address] Familia Ashley MD [facility] [place] [address] Social History Tobacco Use Types Packs/Day Years Used Date Smoking Tobacco: Former Cigarettes 973 - 2002 Smokeless Tobacco: Never Alcohol Use Standard Drinks/Week Comments Never 0 (1 standard drink = 0.6 oz pur e alcohol) [facility] Utilities Answer Date Recorded In [...] any time in the past 12 m [facility], were you homeless or living in [...] on file documented as of this encounter Progress Notes * Familia Ashley MD - 09/30/2024 3:19 PM EST Images from the original note were not included. FOCUSED H&P and PRE-PROCEDURE IR NOTE: PCP: Leila Manjarrez Referring Physician: Gissell Velazco MD Planned Procedure: G tube Procedure Indication: R occipital hemorrhage, unable to swallow, NG tube currently placed, will need PEG for longer term nutrition Presenting Diagnosis/ Complaint: Lucero Arthur is a 74 y.o. female with PMH of R occipital hemorrhage, chronic a-fib presented for watchman procedure. Post operatively hadsevere 09/02 headache, taken to [facility] where a R IPH with mass effect and midline shift was identified. Stroke alert called. At that time NIHSS 22. SBP in 130s. BG 202. She was subsequently intubated and taken to surgery for Craniotomy with evaluation by neurosurgery followed by admission to N[facility]U for f urther monitoring. Course complicated by failed extubation. She was re-extubated on 09/26 and vascular neurology re-engaged for possible downgrade. 09/30/24 following commands, moving her right side and able to sustain antigravity. Unable to move left side. Pinpoint un-reactive L pupil and blown pupil on the right. NIHSS 22. Patient is able to write and communicate through clipboard. 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 Chronic atrial fibrillation I48.20 Post-operative state Z98.890 Presence of Watchman left atrial appendage closure device Z95.818 S/P craniotomy Z98.890 Past Medical History: Diagnosis Date Irregular heart beat Obstructive sleep apnea Past Surgical History: Procedure Laterality Date PRG ECHOENCEPHALOGRAPH REAL TIME Right 09/16/2024 ULTRASOUND USE (WRVU 0.63) performed by Sushila Espinal MD at [facility] MAIN OR PRO LAPAROSCOPY W TOT HYSTERECTUTERUS <=250 GRAM W TUBE/OVARY N/A 04/23/2024 LAPAROSCOPY, TOTAL HYST, UTERUS<250GMS, REM TUBE &/OR OVARY (WRVU 15) performed by Xiomara Burkett MD at [facility] MAIN OR PRO OPEN SKULL EVAC INTRACEREBR BLOOD Right 09/16/2024 @CRANI-HEMATOMA EVACUATION, INTRACEREBRAL (WRVU 28.09) performed by Sushila Espinal MD at [facility] MAIN OR PRO PERQ CLSR TCAT L ATR APNDGE W/ENDOCARDIAL IMPLNT N/A 09/16/2024 @PERQ TRANSCATH CLOSURE LEFT ATRIAL APPENDAGE W ENDOCARDIAL IMPLANT, INC RAD S&I (WRVU 14) performed by Duane Causey MD at [facility] CATH LABS Medications: Current Outpatient Medications on File Prior to Visit Medication Sig aspirin EC 81 mg EC (DR) tablet [...] by mouth Every 6 hours as needed. Allergies: Oxycodone-acetaminophen, Alendronate sodium, and Contact metal agent Social History and Habits: Social History Socioeconomic History Marital status: Spouse [...] Intimate Partner Violence: Not At Risk (09/17/2024) DH IPV Inpatient Questions Prevent Contact with Others: no Feels Threatened by Someone: no Feels Unsafe at Home: no Physical Signs of Abuse Present: no Housing Stability: Low Risk (09/17/2024) Housing Stability Vital Sign Unable to Pay for Housing in the Last Year: No Number of Times Moved in the Last Year: 0 Homeless in the Last Year: No Significant Family History: History reviewed. No pertinent family history. Physical Exam: Pending Labs: Lab Results Component Value Date WBC 25.89 (H) 09/30/2024 WBC 12.6 (H) 05/08/2024 HCT 31.0 (L) 09/30/2024 HCT 41.9 05/08/2024 PLATELET 376 (H) 09/30/2024 PLATELET 246 05/08/2024 INR 1.1 09/18/2024 INR 1.0 05/08/2024 BUN 16 09/30/2024 BUN 14 05/08/2024 CREATININE 0.47 (L) 09/30/2024 CREATININE 0.68 (L) 05/08/2024 ALKPHOS 81 09/26/2024 ALKPHOS 92 05/08/2024 AST 28 09/26/2024 AST 15 05/08/2024 ALBUMIN 2.7 (L) 09/26/2024 ALBUMIN 3.7 05/08/2024 BILIDIR <0.2 09/26/2024 BILIDIR 0.1 05/08/2024 BILITOT 0.4 09/26/2024 BILITOT 0.4 05/08/2024 ALT 72 (H) 09/26/2024 ALT 14 05/08/2024 PROT 5.2 (L) 09/26/2024 PROT 6.2 05/08/2024 Prior Imagin09/26/24: Assessment: 74 yo R occipital hemorrhage p watchman procedure, unable to swallow, NG tube currentlyplaced. Plan: PEG for longer term nutrition Labs: [per IR/CT protocol] Prophylactic antibiotic: Ancef 2 g IV Medications to discontinue (and when): [none] Patient Position: [supine] Access site: right epigastrium Sedation Plan : Analgesia only Discharge Plan: return to room documented in this encounter Miscellaneous Notes * Addendum Note - Familia Ashley MD - 09/30/2024 3:19 PM ESTAddended by: FAMILIA ASHLEY on: 09/30/2024 03:42 PM Modules accepted: Orders documented in this encounter Plan of Treatment Upcoming Encounters Date Type Department Care Team (Late st Contact Info) Description 11/04/2024 11:15 AM EST Appointment Non-Invasive [place] [address] 11/10/2024 8:00 AM EST Office Visit Neurology at [place] [address] Clarisse Duke APRN [facility] [place] [address] 11/15/2024 10:[address] Scan at [place] [address] Karli Morales MD [facility] [place] [place] [address] 11/15/2024 11:20 AM EST Office Visit Neurosurgery at [place] [address] Marvin Kimball PA [facility] [place] [place] [address] 12/15/2024 4:40 PM EST TH Visit (TeleHealth) Cardiology at [place] [address] Duane Causey MD [facility] [place] [address] documented as of this encounter Visit Diagnoses Not on filedocumented in this encounter Care Teams Flight Dynamicist Relationship Specialty Start Date End Date Leila Manjarrez [address] [place] [address] PCP - General Family Medicine 09/09/24 documented as of this encounter
--- OUTSIDE RECORDS SUMMARY | 2024-10-20 17:25 | XMS_ITS | Encounter Summary ---
Author Organization [facility] [place] [address] Care Team Providers Care Information Security Consultant Name Role Phone MohsenimanijoelLeila Santamaria Primary Care Provider [phone] Reason for Visit * Auth/Cert (Routine) Specialty Diagnoses / Procedures Referred By Contac t Referred To Contact Diagnoses Atrial fibrillation, unspecified type A fib ANGUS Procedures PRO PERQ CLSR TCAT L ATR APNDGE W/ENDOCARDIAL IMPLNT CARDIAC CATHETERIZATION @PERQ TRANSCATH CLOSURE LEFT ATRIAL APPENDAGE W ENDOCARDIAL IMPLANT, INC RAD S&I (WRVU 14) TRANSESOPHAGEAL ECHO DURING CATH/EP PROCEDURE Duane Causey MD [facility] [place] [address] [facility] Referral ID Status Reason Start Date Expiration Date Visits Re quested Visits Authorized [id number] 1 1 Encounter Details Date Type Department Care Team (Late st Contact Info) Description 09/16/2024 5:22 PM EDT Anesthesia Event [place] [address] Faye Morrow MD [facility] [place] [address] Ihsan Otero CRNA [facility] [place] [address] Anesthesia Record Procedure Summary Procedure Name Responsible Anesthesiologist Anesthesia Start Time Anesthesia Stop Time @CRANI-HEMATOMA EVACUATION, INTRACEREBRAL (WRVU 28.09) (Right: Head) Faye Morrow MD 09/16/24 1722 09/16/24 220 Events Date Time Event Comment 09/16/2024 1715 1722 AN Verify 1722 Start 1723 An Start Data 1724 An Induction 1747 Anesthesia Ready Per surgery End Tidal goal 27-29. SBP 100-140. 1757 Procedure Start 1858 Quick Note End tidal CO2 g oal per surgery 30-33 2200 an stop data 220 Recovery or ICU Handoff Marisela ent care was transferred to the destination unit staff after review of the patient's medical history, current anesthetic/surgical status and plan, according to the Provider Handoff Checklist. 2208 Stop Meds Name Total fentaNYL 100 mcg propofoL 230 mg protamine 50 mg rocuronium 150 mg propofol INF 1,036.12 mg mannitol 20% 50 g PHENYLephrine INF 8,230 mcg ceFAZolin 2 g HYDROmorphone 0.8 mg levETIRAcetam (Keppra) (100 mg/mL) IV in jection 1 g 1 g lactated ringers 800 mL lactated ringers 300 mL * Agents Name O2 * Blood No blood administrations on file. Lines, Drains, and Airways Type Details Placement Removal Incision 09/16/24; Right; par ietal region; other (see comments) (crani-hematoma incision) 09/16/24 0000 by Marcia Juarez RN Incision 04/23/24; 09; abdo men; laparoscopic punctures (specify); 3 Trocar Sites; LDA not present upon assessment; 09/16/24; 1834 04/23/24 0913 by Linda Barney RN 09/16/24 183 by Marcia Juarez RN ETT ETT Type: Oral; ETT Size: 8 mm; Notes: RSI; Secured at Teeth: 22 cm; Removal Date: 09/21/24; Removal Time: 1145 09/16/24 0000 by Abimael Nuñez RCP 09/21/24 1145 by Felicia Castillo RCP Urethral Catheter 09/16/24; Surgery lo nger than 2 hours; indwelling double lumen catheter; latex; 14; inserted at [facility]; 1; 5; 10; 10/02/24; 0246 09/16/24 0000 by Marcia Juarez RN 10/02/24 0246 by Shraddha Jimenez RN Drain/Device Site 09/16/24; Right; par ietal region; collapsible closed device (7mm silicone flat drain); MD Espinal; Sterile prep and drape, Sterile technique; removed by neurosurgery team; 09/21/24; 1400 09/16/24 0000 by Marcia Juarez RN 09/21/24 1400 by Seth Wade RN PIV 09/16/24; 1305; [id number]-ujl-djcjih catheter system; 1 in length, 18 gauge; median cubital vein (antecubital fossa), right; prior to admission to unit; distraction; removed per policy/procedure, catheter/device intact; 09/22/24; 22309/16/24 1305 by Dewayne Delacruz RN 09/22/24 223 by Hank Oquendo RN Arterial Line 09/16/24; 1755; radi al artery, right; 20 gauge; Anatomical Landmarks, Ultrasound Guidance; continuous blood pressure monitoring, frequent blood gas measurement; prior to admission to unit; Sterile Prep, Sterile Gloves; 09/21/24; 1027 09/16/24 1755 by Orlin Bush, DO 09/21/24 1027 by Seth Wade RN PIV 09/16/24; 2211; 20 g auge; metacarpal vein (top of hand), right; prior to admission to unit; site symptomatic, catheter/device intact; 09/18/24; 0300 09/16/24 221 by Dodie Jose RN 09/18/24 030 by Sherrie Adam RN PIV 09/16/24; 2216; 20 g auge; median cubital vein (antecubital fossa), left; removed per policy/procedure, site symptomatic, catheter/device intact; 09/23/24; 203709/16/242215 by Dodie Jose RN 09/23/242037 by Hank Oquendo RN documented in this encounter Social History Tobacco Use Types Packs/Day Years Used Date Smoking Tobacco: Former Cigarettes 2 30 1 973 - 2002 Smokeless Tobacco: Never Alcohol Use Standard Drinks/Week Comments Never 0 (1 standard drink = 0.6 oz pur e alcohol) [facility] Utilities Answer Date Recorded In the [...] any time in the past [address] [facility], were you homeless or living in [...] OR Notes * Anesthesia Postprocedure Evaluation - Faye Morrow MD - 09/16/2024 10:14 PM EDT Department of Anesthesiology Post-procedure Note Patient: Lucero Arthur Procedure Summary Date: 09/16/24 Room / Location: [facility] OR [facility] MAIN OR Anesthesia Start: 1721 Anesthesia Stop: 2208 Procedures: @CRANI-HEMATOMA EVACUATION, INTRACEREBRAL (WRVU 28.09) (Right: Head) ULTRASOUND USE (WRVU 0.63) (Right: Brain) Diagnosis: (R [facility]) Surgeons: Sushila Espinal MD Responsible Provider: Faye Morrow MD Anesthesia Type: general ASA Status: 4 - Emergent All Anesthesia Providers: Anesthesiologist: Ihsan Morales MD; Faye Morrow MD Clothing Room Supervisor: Orlin Bush B, DO Vitals Value Taken Time BP Temp 36.4 ??C (97.5 ??F) 09/16/242206 Pulse 64 09/16/242213 Resp 20 09/16/242213 SpO2 95 % 09/16/242213 Pain Level Vitals shown include unfiled device data. Patient Location: ICU Level of Consciousness: Sedated (Pharmacologic/Intentional) Pain Management: Satisfactory Analgesia PONV: None Cardiovascular Status: Hemodynamically Stable Respiratory Status: Intubated/Ventilated Postoperative Fluid Status: Intravascular EUvolemia Possible Anesthetic Complications: NONE apparent at time of evaluation Final Primary Anesthesia Type: General (The anesthetic type performed was the same as planned.) Comments: * Anesthesia Preprocedure Evaluation - Ihsan Morales MD - 09/16/2024 6:42 PM EDT Pre-Anesthesia Evaluation for: Lucero Arthur a 74 y.o. female. Procedure(s): @CRANI-HEMATOMA EVACUATION, SUPRATENTORIAL, SUBDURAL OR EXTRADURAL (WRVU 30.17) Patient Active Problem List Diagnosis Date Noted ??? *Presence of Watchman left atrial appendage closure device 09/16/2024 ??? Post-operative state 05/24/2024 ??? Chronic atrial fibrillation 05/08/2024 ??? 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 Irregular heart beat ??? Obstructive sleep apnea Past Surgical History: Procedure Laterality Date ? ? PRO LAPAROSCOPY W TOT HYSTERECTUTERUS <=250 GRAM W TUBE/OVARY N/A 04/23/2024 LAPAROSCOPY, TOTAL HYST, UTERUS<250GMS, REM TUBE &/OR OVARY (WRVU 15) performed by Xiomara Burkett MD at [facility] MAIN OR Social History Tobacco Use ??? Smoking status: Former Current packs/day: 0.00 Average packs/day: 2.0 packs/day for 30.0 years (60.0 ttl pk-yrs) Types: Cigarettes Start date: 1972 Quit date: 2002 Years since quittin.8 ??? Smokeless tobacco: Never Substance Use Topics ??? Alcohol use: Never Social History Substance and Sexual Activity Drug Use Never Allergies Allergen Reactions ??? Oxycodone-Acetaminophen Other (See Comments) Other reaction(s): hallucinations ??? Alendronate Sodium Nausea Only ??? Contact Metal Agent Medications: MAR and/or home medications have been reviewed. Physical Exam: Preprocedure Vitals Current as of 09/16/24 1722 BP: 142/68 Pulse: 59 Resp: 16 SpO2: 98 Temp: Height: 152.4 cm (5') (09/16/24) Weight: 88.5 kg (195 lb) (09/16/24) BMI: 38.08 IBW: 45.5 kg (100 lb 4.9 oz) Last edited 09/16/24 170 by EC Currently displaying vitals information from multiple entries within 180 minutes of most recent vitals. Airway Assessment: Mallampati: (Unable to Assess) ETT in situ Cardiovascular Assessment: Rhythm: regular Rate: normal Pulmonary Assessment: breath sounds clear to auscultation Dental Assessment: Misc Assessment: Last Filed Perioperative Cognitive Screening Value Time User AD8 Total Score: 6 03/03/2024 1:00 PM Gera Alexis RN AD8 Informant: Patient 03/03/2024 1:00 PM Gera Alexis, RN CFS Frailty Score: 3 03/03/2024 1:00 PM Gera Alexis, RN Anesthesia Plan: ASA 4 emergent general, with a(n) intravenous induction Addendum 09/16/2024 (MD Andrew): 74yo for stat crani A case for decompression. Pt underwent elective watchman procedure earlier today (uneventful). Complained of headache in recovery -> CT scan -> R intraparenchymal hemorrhage -> blown pupil. Intubated emergently in CT scan by Dr. Stone for airway protection. Brought directly to OR10 for decompression. Consent implied for emergency. N eurosurgery team reports they have family verbal consent to proceed Region - Intracranial (non-vascular) Informed Consent: Anesthesia Screening documented in this encounter Miscellaneous Notes * Addendum Note - Orlin Bush DO - 09/17/2024 6:46 PM EDT Addendum created 09/17/241845 by Orlin Bush DO Intraprocedure Meds edited documented in this encounter Plan of Treatment Upcoming Encounters Date Type Department Care Team (Late st Contact Info) Description 11/04/2024 11:15 AM EST Appointment Non-Invasive [place] [address] 11/10/2024 8:00 AM EST Office [place] [phone] Clarisse Duke, RAIL OPERATOR [facility] [place] [address] 11/15/2024 10:[address] [place] [phone] Karli Morales MD [facility] [place] [place] [address] 11/15/2024 11:20 AM EST Office [place] [address] Marvin Kimball PA [facility] [place] [place] [address] 12/15/2024 4:40 PM EST TH Visit (TeleHealth) Cardiology at [address] [address] Duane Causey MD [facility] [place] [address] documented as of this encounter Visit Diagnoses Not on filedocumented in this encounter Administered Medications Inactive Administered Medications - up to 3 most recent administrations Medication Order MAR Action Action Date Dose Rate Site ceFAZolin (Ancef) (100 mg/mL) injection solution Intravenous, PRN, Starting on Ashley 09/16/24 at 1747, Until Ashley 09/16/24 at 2214, Anesthesia Intra-op, Routine Given 09/16/2024 5:47 PM EDT 2 g fentaNYL (pf) (50 mcg/mL) multi-dose injection Intravenous, PRN, Starting on Ashley 09/16/24 at 1804, Until Ashley 09/16/24 at 2214, Anesthesia Intra-op, Routine Given 09/16/2024 6:04 PM EDT 100 mcg HYDROmorphone (Dilaudid) (2 mg/mL) multi-dose injection solution Intravenous, PRN, Starting on Ashley 09/16/24 at 2055, Until Ashley 09/16/24 at 2214, Anesthesia Intra-op, Routine Given 09/16/2024 9:28 PM EDT 0.4 mg Given 09/16/2024 8:55 PM EDT 0.4 mg lactated ringers infusion Intravenous, CONTINUOUS PRN, Starting on Ashley 09/16/24 at 1724, Until Ashley 09/16/24 at 2214, Anesthesia Intra-op New Bag 09/16/2024 5:24 PM EDT lactated ringers infusion Intravenous, CONTINUOUS PRN, Starting on Ashley 09/16/24 at 1724, Until Ashley 09/16/24 at 2214, Anesthesia Intra-op New Bag 09/16/2024 5:24 PM EDT levETIRAcetam (Keppra) (100 mg/mL) IV injection 1 g 1 g, Intravenous, ONCE, 1 dose, On Ashley 09/16/24 at 2130, Doses administered via IV push over 5 minutes. Administer Undiluted., Intra-Operative (Intra-Procedure), STAT New Bag 09/16/2024 9:13 PM EDT 1 g mannitoL (Osmitrol) 20 % infusion Intravenous, PRN, Starting on Ashley 09/16/24 at 1654, Until Ashley 09/16/24 at 2214, Anesthesia Intra-op Given 09/16/2024 4:54 PM EDT 50 g PHENYLephrine (Jean-Synephrine) (80 mcg/mL) in sodium chloride 0.9% 250 mL infusion Intravenous, CONTINUOUS PRN, Starting on Ashley 09/16/24 at 1748, Until Ashley 09/16/24 at 2214, Anesthesia Intra-op, Routine Rate/Dose Change 09/16/2024 9:25 PM EDT 40 mcg/min 30 mL/hr Rate/Dose Change 09/16/2024 8:54 PM EDT 20 mcg/min 15 mL/h r Rate/Dose Change 09/16/2024 8:30 PM EDT 30 mcg/min 22.5 mL /hr propofoL (Diprivan) (10 mg/mL) infusion Intravenous, CONTINUOUS PRN, Starting on Ashley 09/16/24 at 1712, Until Ashley 09/16/24 at 2214, Anesthesia Intra-op, Routine Rate/Dose Change 09/16/2024 7:05 PM EDT 50 mcg/kg/min 18.81 mL/hr Rate/Dose Change 09/16/2024 5:58 PM EDT 75 mcg/kg/min 28.2 15 mL/hr New Bag 09/16/2024 5:12 PM EDT 50 mcg/kg/min 18.81 mL/h r propofoL (Diprivan) 10 mg/mL bolus injection (Anesthesia) Intravenous, PRN, Starting on Ashley 09/16/24 at 1717, Until Ashley 09/16/24 at 2214, Anesthesia Intra-op Given 09/16/2024 9:28 PM EDT 30 mg Given 09/16/2024 8:51 PM EDT 30 mg Given 09/16/2024 6:03 PM EDT 20 mg protamine (10 mg/mL) injection Intravenous, PRN, Starting on Ashley 09/16/24 at 1734, Until Ashley 09/16/24 at 2214, Anesthesia Intra-op, Routine Given 09/16/2024 5:34 PM EDT 50 mg rocuronium (Zemuron) (10 mg/mL) multi-dose injection Intravenous, PRN, Starting on Ashley 09/16/24 at 1717, Until Ashley 09/16/24 at 2214, Anesthesia Intra-op, Routine Given 09/16/2024 9:21 PM EDT 20 mg Given 09/16/2024 7:49 PM EDT 40 mg Given 09/16/2024 7:00 PM EDT 40 mg documented in this encounter Care Teams Information Security Consultant Relationship Specialty Start Date End Date Leila Manjarrez [address] [place] [address] PCP - General Family Medicine 09/09/24 documented as of this encounter
--- OUTSIDE RECORDS SUMMARY | 2024-10-20 17:25 | XMS_ITS | Encounter Summary ---
Author Organization [facility] [place] [address] Care Team Providers Care Precision Grinder Name Role Phone MohsenimanijoelLeila Santamaria Primary Care Provider [phone] Reason for Visit * Auth/Cert (Routine) Specialty Diagnoses / Procedures Referred By Contac t Referred To Contact Diagnoses Atrial fibrillation, unspecified type A fib ANGUS Procedures PRO PERQ CLSR TCAT L ATR APNDGE W/ENDOCARDIAL IMPLNT CARDIAC CATHETERIZATION @PERQ TRANSCATH CLOSURE LEFT ATRIAL APPENDAGE W ENDOCARDIAL IMPLANT, INC RAD S&I (WRVU 14) TRANSESOPHAGEAL ECHO DURING CATH/EP PROCEDURE Duane Causey MD [facility] [place] [address] [facility] Referral ID Status Reason Start Date Expiration Date Visits Re quested Visits Authorized [id number] 1 1 Encounter Details Date Type Department Care Team (Late st Contact Info) Description 09/21/2024 1:17 PM EDT Anesthesia [place] [address] Glen Gold MD [facility] [place] [address] Anesthesia Record Procedure Summary Procedure Name Responsible Anesthesiologist Anesthesia Start Time Anesthesia Stop Time CT HEAD WO CONTRAST (GENERIC) Events No events on file. Meds * Agents No agents on file. * Blood No blood administrations on file. Lines, Drains, and Airways Type Details Placement Removal Incision 09/16/24; Right; par ietal region; other (see comments) (crani-hematoma incision) 09/16/24 0000 by Marcia Juarez hospital receiving clerk 09/30/24; 1240; Bila teral; gluteal; moisture/friction 09/30/24 1240 by Rosalinda Herrera, RN Enterostomy Tube 10/04/24; 1236; julianna rostomy tube with balloon; midline; 16Fr 10/04/24 1236 by Brad Lubin RN documented in this encounter Social History Tobacco Use Types Packs/Day Years Used Date Smoking Tobacco: Former Cigarettes 2 30 1 - 2002 Smokeless Tobacco: Never Alcohol Use Standard Drinks/Week Comments Never 0 (1 standard drink = 0.6 oz pur e alcohol) [facility] Utilities Answer Date Recorded In the [...] place to sleep or slept in a snf (including now)? No 03/03/2024 Housing Stability Vital Sign Answer Salvador e Recorded In the last 12 months, was t here a time when you were not able to pay the mortgage or rent on time? No 09/17/2024 In the past 12 months, how m any times have you moved where you were living? 0 09/17/2024 At any time in the past 12 m [facility], were you homeless or living in a snf (including now)? No 09/17/2024 [facility] IPV Inpatient [...] of this encounter OR Notes * Anesthesia Procedure Notes - Glen Gold MD - 09/21/2024 1:18 PM EDT Associated Order(s): Emergent Intubation Emergent Intubation Date/Time: 09/21/2024 1:00 PM Urgency: emergent Reason for Intubation: Procedure Diagnosis: respiratory distress (Failed extubation) General Information and Staff Patient location: [facility]. Performed by: Anesthesiologist: Dc Young MD Resident/EXTRACTOR PULLER: Glen Gold MD Other anesthesia staff: Brad Curtis MD Authorized by: Dc Young MD Consent for Airway Informed consent: Not applicable. Pre-Intubation Assessment and Preparation: Mallampati Score: III Preoxygenated: yes Sedation Provided: anesthesia Muscle Relaxant Used: Muscle relaxant Cricoid Pressure Applied: No Mask difficulty assessment: 2 - Vent by mask (+ OA or adjuvant +/- NMBA) Airway Instrumentation Bag/Mask (Kheterpal) Classification: 2 - Vent by mask (+ OA or adjuvant +/- NMBA) Oral AIrway Used? No Nasal Airway Used? No Number of attempts: 1 Airway not difficult Airway Details Final airway type: endotracheal tube Successful airway: ETT Cuffed: yes Successful intubation technique: video laryngoscopy Blade: Indirect VIDEO ETT size (mm): 7.5 Placement verified by: chest auscultation and capnometry Measured from: lips ETT to lips (cm): 22 documented in this encounter Plan of Treatment Upcoming Encounters Date Type Department Care Team (Late st Contact Info) Description 11/04/2024 11:15 AM EST Appointment Non-Invasive Cardiology Lab [place] [address] 11/10/2024 8:00 AM EST Office Visit Neurology at [place] [address] Clarisse Duke APRN [facility] [place] [address] 11/15/2024 10:[address] Scan at [place] [address] Karli Morales MD [facility] [place] [address] 11/15/2024 11:20 AM EST Office Visit Neurosurgery at [address] Marvin Kimball PA [facility] [place] [place] [address] 12/15/2024 4:40 PM EST TH Visit (TeleHealth) Cardiology at [place] [address] Duane Causey MD [facility] [place] [place] [address] documented as of this encounter Procedures Procedure Name Priority Date/Time Associated Diagnosis Comments INTUBATION - ANES ONLY Routine 09/21/2024 1:00 PM EDT documented in this encounter Results * INTUBATION - ANES ONLY (09/21/2024 1:00 PM EDT) Narrative Dc Young MD - 09/21/2024 1:00 PM EDT Glen Gold MD ? 09/21/2024 ??1:25 PM Emergent Intubation Date/Time: 09/21/2024 1:00 PM Urgency: emergent Reason for Intubation: ?? Procedure Diagnosis: ??respiratory distress (Failed extubation) General Information and Staff [facility] Performed by: Anesthesiologist: Dc Young MD Resident/EXTRACTOR PULLER: Glen Gold MD Other anesthesia staff: Brad [...] Young MD ANES INPUT W KURTIS Nelson CHPRIYA documented in this encounter Visit Diagnoses Not on filedocumented in this encounter Care Teams Precision Grinder Relationship Specialty Start Date End Date Leila Manjarrez [address] [place] [address] PCP - General Family Medicine 09/09/24 documented as of this encounter
--- OUTSIDE RECORDS SUMMARY | 2024-10-20 17:27 | XMS_ITS | Encounter Summary ---
Author Organization [facility] [place] [address] Care Team Providers Care Dampener Name Role Phone EvHina Leila Primary Care Provider [phone] Reason for Visit * Auth/Cert (Routine) Specialty Diagnoses / Procedures Referred By Contac t Referred To Contact Diagnoses Atrial fibrillation, unspecified type A fib ANGUS Procedures PRO PERQ CLSR TCAT L ATR APNDGE W/ENDOCARDIAL IMPLNT CARDIAC CATHETERIZATION @PERQ TRANSCATH CLOSURE LEFT ATRIAL APPENDAGE W ENDOCARDIAL IMPLANT, INC RAD S&I (WRU 14) TRANSESOPHAGEAL ECHO DURING CATH/EP PROCEDURE Duane Causey MD [facility] [place] [address] [facility] Referral ID Status Reason Start Date Expiration Date Visits Re quested Visits Authorized [id number] 1 1 Encounter Details Date Type Department Care Team (Late st Contact Info) Description 09/16/2024 5:49 PM EDT - 09/16/2024 8:35 PM EDT Surgery [place] [address] Sushila Espinal MD [facility] [place] [address] @CRANI-HEMATOMA EVACUATION, INTRACEREBRAL (WRU ) Social History Tobacco Use Types Packs/Day Years Used Date Smoking Tobacco: Former Cigarettes 2 30 1 - 2002 Smokeless Tobacco: Never Alcohol Use Standard Drinks/Week Comments Never 0 (1 standard drink = 0.6 oz pur e alcohol) [facility] Utilities Answer Date Recorded In the past [...] place to sleep or slept in a jail (including now)? No 03/03/2024 Housing Stability Vital Sign Answer Salvador e Recorded In the last 12 months, was t here a time when you were not able to pay the mortgage or rent on time? No 09/17/2024 In the past 12 months, how m any times have you moved where you were living? 0 09/17/2024 At any time in the past 12 m [facility], were you homeless or living in a jail (including now)? No 09/17/2024 IPV Inpatient Questions [...] Sign Reading Time Taken Comments Blood Pressure 142/68 09/16/2024 4:25 PM EDT Pulse 59 09/16/2024 4:20 PM EDT Temperature 36.7 ??C (98.1 ??F) 09/16/2024 12:58 PM E DT Respiratory Rate 16 09/16/2024 5:04 PM EDT Oxygen Saturation 98% 09/16/2024 5:04 PM EDT Inhaled Oxygen Concentration - - Weight 88.5 kg (195 lb) 09/16/2024 12:58 PM EDT Height 152.4 cm (5') 09/16/2024 12:58 PM EDT Body Mass Index 33.4 09/21/2024 6:38 PM EDT documented in this encounter Discharge Summaries * Val Connor PA - 10/12/2024 12:02 PM EST Images from the original note were not included. Discharge Summary Patient Name: Lucero Bruno Patient Age: 74 y.o. Language: French Admit date: 09/16/2024 Discharge date and time: [...] complaining of severe 10/10 headache, taken to CT were an enlarged R IPH with mass [...] Calculated (Bezet) ms 449 446 Calculated P Meridian degrees 44 36 Calculated R Meridian degrees -22 -17 Calculated T Meridian degrees 34 28 INTERPRETATION Sinus tachycardia with Premature atrial complexes Low voltage QRS Cannot rule out Anterior infarct , age undetermined Abnormal ECG When compared with ECG of 16-SEP-2024 15:33, Premature atrial complexes are now Present Confirmed by MD Jose L, Abdiel ([id number]) on 09/28/2024 2:49:44 PM Normal sinus rhythm Normal ECG When compared with ECG of 16-SEP-2024 13:08, No significant change was found Confirmed by MD Bahman, Octavio Mosquera ([id number]) on 09/19/2024 9:11:06 AM CXR XR [...] who have questions please contact the health customer care agent that requested your imaging first. Electronically signed by: MICHELLE ARSHAD MD, [facility] ([phone]), at 3:00 PM XR Chest One View [...] who have questions please contact the health customer care agent that requested yourimaging first. Electronically signed by: Marvin Decker DO, [facility] ([phone]), at 09/30/2024 12:49 AM XR Chest One [...] who have questions please contact the health customer care agent that requested your imaging first. Electronically signed by: Sammy Story MD, [facility] ([phone]), at 09/28/2024 8:09 PM XR Chest One [...] who have questions please contact the health customer care agent that requested your imaging first. Electronically signed by: Marvin Decker DO, [facility] ([phone]), at 09/28/2024 4:12 AM XR Chest One [...] who have questions please contact the health customer care agent that requested your imaging first. Electronically signed by: Octavio Scott MD, [facility] ([phone]), at 09/21/2024 5:09 PM XR Chest One [...] who have questions please contact the health customer care agent that requested your imaging first. Electronically signed by: Arie Bhat, [facility] ([phone]), at 09/18/2024 9:29 AM XR Chest One View Result Date: 09/17/2024 1. [...] who have questions please contact the health customer care agent that requested your imaging first. Electronically signed by: Zoey Zabala MD, [facility] ([phone]), at 09/17/2024 2:43 PM XR Chest One View Result Date: 09/17/2024 Satisfactorily positioned enteric and endotracheal tubes. Left lower lobe atelectasis versus pneumonia. Thank you for letting us participate in the care of this patient. If you are a health care provider and have any questions regarding this report, please contact the number below. For patients whohave questions please contact the health customer care agent that requested your imaging first. Electronically signed by: Pamela Beard MD, [facility] ([phone]), at 09/17/2024 12:[address] [...] who have questions please contact the health customer care agent that requested your imaging first. Electronically signed by: Domingo Puentes, [facility] ([phone]), at 10/07/2024 4:[address] Head wo [...] first. Electronically signed by: Armando Pan MD, [facility] ([phone]), at 10/04/2024 2:[address] Head wo [...] who have questions please contact the health customer care agent that requested your imaging first. Electronically signed by: Smiley Cordova MD, [facility] ([phone]), at 09/26/2024 2:[address] Head wo [...] who have questions please contact the health customer care agent that requested your imaging first. Electronically signed by: Armando Pan MD, [facility] ([phone]), at 09/22/2024 4:[address] Head wo [...] patients who have questions pleasecontact the health customer care agent that requested your imaging first. Electronically signed by: Armando Pan MD, [facility] ([phone]), at 09/21/2024 4:[address] Head wo [...] who have questions please contact the health customer care agent that requested your imaging first. Electronically signed by: Elvin Bolden DO, [facility] ([phone]),at 09/17/2024 8:55 AM --------ORIGINAL REPORT -------- EXAMINATION: [...] care of this patient. If you are [facility] care provider and have any questions regarding this report, please contact the number below.For patients who have questions please contact the health customer care agent that requested your imaging first. Electronically signed by: Elvin Bolden DO [facility] ([phone]), at 8:38 AM Addendum Date: 09/17/2024 --------ADDENDUM [...] who have questions please contact the health customer care agent that requested yourimaging first. Electronically signed by: Elvin Bolden DO [facility] ([phone]), at 09/17/2024 8:38 AM Result Date: 09/17/2024 [...] who have questions please contact the health customer care agent that requested your imaging first. Electronically signed [facility]: [facility] ([phone]), at 09/17/2024 8:[address] Head wo [...] who have questions please contact the health customer care agent that requested your imaging first. Electronically signed by: Armando Pan MD, [facility] ([phone]), at 09/17/2024 1:[address] Head wo [...] who have questions please contact the health customer care agent that requested your imaging first. Electronically signedby: Lana Reinoso [facility] ([phone]), at 09/16/2024 6:01 PM MRA Head and [...] who have questions please contact the health customer care agent that requested your imaging first. Electronically signed by: Armando Pan MD, [facility] ([phone]), at 10/05/2024 12:31 AM MRI Brain wwo Contrast (Generic) Result Date: 09/20/2024 Unchanged size of large right cerebral hemisphere ICH status post partial evacuation. Numerous small foci of decreased acute infarction both along and separate from the site of hemorrhage. These fociare present in both cerebral hemispheres and have a pattern most consistent with embolic infarction. No evidence of NEON MOLDER malignancy Thank you for letting us participate in the care of this patient. Ifyou are a health care provider and have any questions regarding this report, please contact the number below. For patients who have questions please contact the health customer care agent that requested your imaging first. Electronically signed by: Rios Swartz MD, [facility] ), at 09/20/2024 8:24 AM CTA Carotids/[place] No results found. 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..] stroke, and education on stroke follow-up. Modified Egeland Score (MRS) on discharge Score Description 0 [...] were admitted to the neurology service at [facility] Your Diagnosis: hemorrhagic stroke secondary to [...] follow-up appointment in the neurology clinic at [facility]. See below for the appointment time. If [...] may be billed similar to a regular qfjc-zp-bnlb clinic visit. Primary Care Provider: Please follow up with your Primary Care Provider within one to 2 weeks of discharge. For questions regarding this document or issues relating to this hospitalization on the Neurology Service, please contact the author(s) of this discharge summary through the [facility] Rope Twisting Machine Operator . If you need to cancel or reschedule, please call Dept: [phone] as soon as possible. This is helpful to us and other waiting patients. IF FOLLOW UP VISIT WITH STROKE TEAM IS NEEDED IN FORM OF TELEHEALTH: Please ensure you have an active [employer] account and are familiar with it. Also, please ensure an active email address. To sign up for a Open [employer] account, Visit the [email or web address] website and 1) choose ???create an account?? [...] created. If you need technical assistance call [phone] Friday through Friday, 7:30 am to 5:00 pm If you plan to join your myD-H Video Visit using your personal smartphone or tablet, prior to joining your visit you will need to download the Zoom jessi from the Jessi Store (for iPhone/iPad) or Agendize (for Android). Ifyou already have Zoom downloaded on your device for personal use, you???re good to go! 1. Open the Jessi Store or Google Play Store on your device. 2. Search for Zoom and download the Zoom [place] [employer] jessi. ? Jessi Store Link: https://GameWorld Assocites.Deerpath [employer]/us/jessi/kwbh-zyzil-bowplnbu/qe662239990 ? [employer] Link: https://Tamr/store/apps/details?id=us.zoom.videomeetings If you plan to join your myD-H [...] on your keyboard (or click this link: https://Tervela.us/). 3. In the top right corner of [...] link to connect to your visit withinyour myD-H portal. 1. Sign into your myD-H account. 2. Select Appointments. 3. Select your myD-H Video Visit and tap Begin Visit. 4. [...] Starting 30 minutes prior to your scheduled myD-H Video Visit, you will find the link to connect tothe visit within your [facility] portal. 1. Sign into your [employer]Sem[employer] account ([facility] portal link: [email or web address]). 2. On the top of the webpage, hover over Visits and select Appointments and Visits. 3. Click the Details button next to your [facility] video visit. 4. Click the Begin Video [...] anticoagulant, and non-steroidal anti-inflammatory (NSAIDs) drugs. Common hgwf-qfw-iybjzkx medications which should be avoided include Aspirin, [...] a head injury. - When your health customer care agent says you are well enough, return to your normal activities gradually, not all at once. - Talk with your health customer care agent about when you can return to work. DRIVING: - Do not drive while taking narcotic pain medication. [x] Do NOT drive until cleared by Neurosurgery. FOLLOW UP PLAN: Incision: [] Please follow up for suture/staple removal in 10-14 days with your Primary Care Provider or withthe Neurosurgery SOFTWARE DESIGNER/RN. Appointments: [x] Please follow up in the Neurosurgery Clinic in 4 weeks. Please call the Neurosurgery Office at [phone] if you do not receive a scheduled [...] 11:15 AM TRANSESOPHAGEAL ECHO Non-Invasive Cardiology Lab [facility] Arrive at: Layout Technician Area 4W [phone] Check-in at [facility]. PATIENT INSTRUCTIONS: Nothing to eat or drink after midnight. You will be sedated for your test and will need someone to drive you home. Bring a complete list of your medications. Check-in at [facility] . PROCEDURE INSTRUCTIONS:Nothing to eat or drink after midnight. You will be sedated for your test and will need someone to drive you home. 11/10/2024 8:00 AM Clarisse Duke APRN Neurology at [facility] Arrive at: Layout Technician Area 3C [phone] 12/15/2024 4:40 PM Duane Causey MD Cardiology at [facility] [place]rive at: Home [phone] Please do not come in for this visit. Your provider will call you at the number you provided. Future Orders Complete By Expires IR Suture Release [[id number] Custom] 10/11/2024 12/04/2024 Process Instructions: Scheduling Instructions: Comments: Questions: Where will study be performed?: [facility] Radiology To be scheduled: Next available after expected date Reason for exam and clinical history: G tube placed 10/04, 7-10 day pexy release Exam/Procedure requested: What labs need to be collected during imaging study?: Is the patient on anticoagulant / antiplatelet therapy ?: No Does patient require sedation?: CT Head wo Contrast (Generic) [[id number] Custom] 11/11/2024 02/09/2025 Process Instructions: Scheduling Instructions: Questions: Where will study be performed?: [facility] Radiology To be scheduled: Next available after expected date Is this imaging required as part of a research protocol?: No Reason for exam and clinical history: Follow up ICH in the setting of CAA Stat read required?: Does patient require sedation?: Primary Care Provider: Leila KEITH [address] [place] [address] Discharge References/Attachments None documented in this encounter [...] anticoagulant, and non-steroidal anti-inflammatory (NSAIDs) drugs. Common sscd-yqc-cnizaor medications which should be avoided include Aspirin, [...] a head injury. - When your health customer care agent says you are well enough, return to your normal activities gradually, not all at once. - Talk with your health customer care agent about when you can return to work. DRIVING: - Do not drive while taking narcotic pain medication. [x] Do NOT drive until cleared by Neurosurgery. FOLLOW UP PLAN: Incision: [] Please follow up for suture/staple removal in 10-14 days with your Primary Care Provider or withthe Neurosurgery SOFTWARE DESIGNER/RN. Appointments: [x] Please follow up in the Neurosurgery Clinic in 4 weeks. Please call the Neurosurgery Office at [phone] if you do not receive a scheduled [...] were admitted to the neurology service at [facility] Your Diagnosis: hemorrhagic stroke secondary to [...] follow-up appointment in the neurology clinic at [facility]. See below for the appointment time. If [...] may be billed similar to a regular mmce-zo-kyqq clinic visit. Primary Care Provider: Please follow up with your Primary Care Provider within one to 2 weeks of discharge. For questions regarding this document or issues relating to this hospitalization on the Neurology Service, please contact the author(s) of this discharge summary through the [facility] Rope Twisting Machine Operator . If you need to cancel or reschedule, please call Dept: [phone] as soon as possible. This is helpful to us and other waiting patients. IF FOLLOW UP VISIT WITH STROKE TEAM IS NEEDED IN FORM OF TELEHEALTH: Please ensure you have an active Open [employer] account and are familiar with it. Also, please ensure an active email address. To sign up for a Open Dynamics account, Visit the [email or web address] website and 1) choose ???create an account?? [...] created. If you need technical assistance call [phone] Friday through Friday, 7:30 am to 5:00 pm If you plan to join your [facility] Video Visit using your personal smartphone or tablet, prior to joining your visit you will need to download the Zoom jessi from the Jessi Store (for ecoVenthone/iPad) or Agendize (for Android). Ifyou already have Zoom downloaded on your device for personal use, you???re good to go! 1. Open the Jessi Store or Agendize Store on your device. 2. Search for Zoom and download the Zoom [place] [employer] jessi. ? Jessi Store Link: https://GameWorld Assocites.Deerpath Energy/us/jessi/znpk-ovtur-ptbtvqco/ke104794563 ? [employer] Link: https://Tamr/store/apps/details?id=us.zoom.videomeetings If you plan to join your [facility] Video Visit using your computer or laptop, [...] link to connect to your visit withinyour Open Dynamics portal. 1. Sign into your Open Dynamics account. 2. Select Appointments. 3. Select your [facility] Video Visit and tap Begin Visit. 4. [...] Starting 30 minutes prior to your scheduled [facility] Video Visit, you will find the link to connect tothe visit within your Open Dynamics portal. 1. Sign into your Open Dynamics account (Open Dynamics portal link: [email or web address]). 2. On the top of the webpage, hover over Visits and select Appointments and Visits. 3. Click the Details button next to your [facility] video visit. 4. Click the Begin Video [...] att. providers found Primary Provider: Leila Manjarrez [phone] Hospital Day: Hospital Day: 27 Patient ID [...] 10/12/2024 1200 Gross per 24 hour Intake 1989 ml Output 1601 ml Net 389 ml [...] Procedure Component Value - Date/Time Urine culture [[id number]] (Abnormal) (Susceptibility) Collected: 10/09/24 1043 Lab Status: [...] Susceptible Piperacillin/Tazobactam Susceptible Trimethoprim/Sulfa Susceptible COVID-19 PCR [[id number]] (Normal) Collected: 10/11/24 1626 Lab Status: Final result Specimen: Swab from Nasopharynx Updated: 10/11/24 1904 SARS-CoV-2 RNA (Rapid) Not Detected Imaging/EKG Results for orders placed or performed during the hospital encounter of 09/16/24 CT Head wo Contrast (Generic) (Exam End: 09/16/2024 5:26 PM) Result Value WORKSTATION ID [id number] Impression Interval expansion of now large right-sided [...] who have questions please contact the health customer care agent that requested your imaging first. Electronically signed by: Lana Reinoso [facility] ([phone]), at 09/16/2024 6:[address] Head wo Contrast (Generic) (Exam End: 09/16/2024 11:21 PM) Result Value WORKSTATION ID [id number] Impression CT head: 1. Interval craniotomy with [...] who have questions please contact the health customer care agent that requested your imaging first. Electronically signed by: Armando Pan MD, [facility] ([phone]), at 09/17/2024 1:[address] Venogram Brain (Exam End: 09/16/2024 11:21 PM) Result Value WORKSTATION ID [id number] Impression CT head: 1. Interval craniotomy with [...] who have questions please contact the health customer care agent that requested your imaging first. Electronically signed by: Armando Pan MD, [facility] ([phone]), at 09/17/2024 1:42 AM XR Chest One View (Exam End: 09/16/2024 11:00 PM) Result Value WORKSTATION ID [id number] Impression Satisfactorily positioned enteric and endotracheal tubes. Left lower lobe atelectasis versus pneumonia. Thank you for letting us participate in the care of this patient. If you are a health care provider and have any questions regarding this report, please contact the number below. For patients who have questions please contact the health customer care agent that requested your imaging first. Electronically signed by: Pamela Beard MD, [facility] ([phone]), at 09/17/2024 12:09 AM XR Abdomen 1 view (Generic) (Exam End: 09/16/2024 11:00 PM) Result Value WORKSTATION ID [id number] Impression Satisfactorily positioned enteric and endotracheal tubes. Left lower lobe atelectasis versus pneumonia. Thank you for letting us participate in the care of this patient. If you are a health care provider and have any questions regarding this report, please contact the number below. For patients who have questions please contact the health customer care agent that requested your imaging first. Electronically signed by: Pamela Beard MD, [facility] ([phone]), at 09/17/2024 12:[address] Head wo Contrast (Generic) (Exam End: 09/17/2024 4:51 AM) Result Value WORKSTATION ID [id number] Impression Increased size and density of dominant [...] who have questions please contact the health customer care agent that requested your imaging first. Electronically signed by: Elvin Bolden DO, [facility] ([phone]), at 09/17/2024 8:38 AM XR Chest One View (Exam End: 09/17/2024 2:13 PM) Result Value WORKSTATION ID [id number] Impression 1. No focal opacity in lung [...] who have questions please contact the health customer care agent that requested your imaging first. Electronically signed by: Zoey Zabala MD, [facility] ([phone]), at 09/17/2024 2:43 PM XR Chest One View (Exam End: 09/18/2024 8:43 AM) Result Value WORKSTATION ID [id number] Impression Tubes and lines as described. Blunting of the left costophrenic angle suggests tiny layering left effusion with associated left basilar consolidation/atelectasis Thank you for letting us participate in the care of this patient. If you are a health care provider and have any questions regarding this report, please contact the number below. For patients who have questions please contact the health customer care agent that requested your imaging first. Electronically signed by: Arie Bhat, [facility] ([phone]), at 09/18/2024 9:29 AM XR Abdomen 1 view (Generic) (Exam End: 09/18/2024 12:31 PM) Result Value WORKSTATION ID [id number] Impression Dobbhoff tube tip along the greater curve of the stomach. Thank you for letting us participate in the care of this patient. If you are a health care provider and have any questions regarding this report, please contact the number below. For patients who have questions please contact the health customer care agent that requested your imaging first. Electronically signed by: Arie Bhat [facility] ([phone]), at 09/18/2024 1:05 PM MRI Brain wwo Contrast (Generic) (Exam End: 09/19/2024 5:43 PM) Result Value WORKSTATION ID [id number] Impression Unchanged size of large right cerebral hemisphere ICH status post partial evacuation. Numerous small foci of decreased acute infarction both along and separate from the site of hemorrhage. These foci are present in both cerebral hemispheres and have a pattern most consistent with embolic infarction. No evidence of NEON MOLDER malignancy Thank you for letting us participate in the care of this patient. If you are a health care provider and have any questions regarding this report, please contact the number below. For patients who have questions please contact the health customer care agent that requested your imaging first. Electronically signed by: Rios Swartz MD, [facility] ([phone]), at 09/20/2024 8:[address] Head wo Contrast (Generic) (Exam End: 09/21/2024 3:50 AM) Result Value WORKSTATION ID [id number] Impression Stable hemorrhage right temporal, parietal, right [...] who have questions please contact the health customer care agent that requested your imaging first. Electronically signed by: Armando Pan MD, [facility] ([phone]), at 09/21/2024 4:55 AM XR Abdomen 1 view (Generic) (Exam End: 09/21/2024 2:01 PM) Result Value WORKSTATION ID [id number] Impression Dobbhoff tube and enteric tube sidehole [...] who have questions please contact the health customer care agent that requested your imaging first. Electronically signed by: Shraddha Cox MD, [facility] ([phone]), at 09/21/2024 3:40 PM XR Chest One View (Exam End: 09/21/2024 2:01 PM) Result Value WORKSTATION ID [id number] Impression ET tube with tip projecting approximately [...] who have questions please contact the health customer care agent that requested your imaging first. Electronically signed by: Octavio Scott MD, [facility] ([phone]), at 09/21/2024 5:[address] Head wo Contrast (Generic) (Exam End: 09/22/2024 4:02 AM) Result Value WORKSTATION ID [id number] Impression Stable head CT status post removal of subcutaneous drain. No new or enlarging hemorrhage. Stable pattern of mass effect Thank you for letting us participate in the care of this patient. If you are a health care provider and have any questions regarding this report, please contact the number below. For patients who have questions please contact the health customer care agent that requested your imaging first. Electronically signed by: Armando Pan MD, [facility] ([phone]), at 09/22/2024 4:[address] Angiogram Chest for Pulmonary Embolus w Contrast (Exam End: 09/26/2024 1:37 PM) Result Value WORKSTATION ID [id number] Impression 1. No pulmonary embolism. 2. Pulmonary [...] who have questions please contact the health customer care agent that requested your imaging first. Electronically signed by: Marvin Decker DO, [facility] ([phone]), at 09/26/2024 1:[address] Head wo Contrast (Generic) (Exam End: 09/26/2024 1:37 PM) Result Value WORKSTATION ID [id number] Impression 1. Stable right-sided parenchymal and subdural [...] who have questions please contact the health customer care agent that requested your imaging first. Electronically signed by: Smiley Cordova MD, [facility] ([phone]), at 09/26/2024 2:[address] Abdomen & Pelvis w Contrast (Exam End: 09/26/2024 1:37 PM) Result Value WORKSTATION ID [id number] Impression 1. No pulmonary embolism. 2. Pulmonary [...] who have questions please contact the health customer care agent that requested your imaging first. Electronically signed by: Marvin Decker DO, [facility] ([phone]), at 09/26/2024 1:54 PM XR Chest One View (Exam End: 09/28/2024 4:06 AM) Result Value WORKSTATION ID [id number] Impression 1. Limited examination. 2. Interval removal [...] who have questions please contact the health customer care agent that requested your imaging first. Electronically signed by: Marvin Decker DO, [facility] ([phone]), at 09/28/2024 4:12 AM XR Chest One View (Exam End: 09/28/2024 7:58 PM) Result Value WORKSTATION ID [id number] Impression 1. Slightly increased opacity in the [...] who have questions please contact the health customer care agent that requested your imaging first. Electronically signed by: [facility] ([phone]), at 09/28/2024 8:09 PM XR Chest One View (Exam End: 09/29/2024 1:13 PM) Result Value WORKSTATION ID [id number] Impression 1. Limited examination. 2. Stable position [...] who have questions please contact the health customer care agent that requested your imaging first. Electronically signed by: [facility]cker [facility] ([phone]), at 09/30/2024 12:[address] Head wo Contrast (Generic) (Exam End: 10/04/2024 1:40 AM) Result Value WORKSTATION ID [id number] Impression 1. Overall interval improvement of the [...] who have questions please contact the health customer care agent that requested your imaging first. Electronically signed by: Armando Pan MD, [facility] ([phone]), at 10/04/2024 2:12 AM MRI Brain wwo Contrast (Generic) (Exam End: 10/04/2024 10:30 PM) Result Value WORKSTATION ID [id number] Impression 1. Fluid collections in the right [...] who have questions please contact the health customer care agent that requested your imaging first. Electronically signed by: [facility]ando [facility] ([phone]), at 10/05/2024 12:31 AM XR Chest One View (Exam End: 10/06/2024 10:59 AM) Result Value WORKSTATION ID [id number] Impression Improved but persistent retrocardiac patchy opacity [...] who have questions please contact the health customer care agent that requested your imaging first. Electronically signed by: MICHELLE ARSHAD MD, [facility] ([phone]), at 10/06/2024 3:00 PM XR Fluoro Esophagram (Modified/Video Swallow Pharynx) (Exam End: 10/08/2024 4:10 PM) Result Value WORKSTATION ID [id number] Impression Abnormal modified barium swallow with silent [...] who have questions please contact the health customer care agent that requested your imaging first. Electronically signed by: Victor Manuel Smith MD, [facility] ([phone]), at 10/08/2024 4:[address] Head wo Contrast (Generic) (Exam End: 10/07/2024 3:25 PM) Result Value WORKSTATION ID [id number] Impression 1. Interval decreased prominence of RIGHT [...] who have questions please contact the health customer care agent that requested your imaging first. Electronically signed by: Domingo Puentes [facility] ([phone]), at 10/07/2024 4:11 PM ASSESSMENT & PLAN [...] PRN #GI - >dysphagia - follow up BAG MACHINE ADJUSTER recs - Puree diet - Tube feeds [...] Other - Activity: as tolerated - Dispo: Jail facility - Last BM: Last Bowel Movement: 10/12/24 - code status: Attempt Cardiopulmonary Resuscitation - Inpatient Patient Lines/Drains/Airways Status Active Tubes/Lines/Drains Name Placement date Placement time Site Days Enterostomy Tube 10/04/24 1236 gastrostomy tube with balloon midline 10/04/24 1236 -- 8 Please page Vascular Neurology with any questions, #[id number] ADRIANA Aguirre Department [place] [address] Associated attestation - Karli Morales MD - [...] Dheeraj Moreira - 10/12/2024 1:41 PM EST Almond Pan Finisher Encounter Note Patient Name: Lucero Bruno : [id number] MR#: [id number] Admit Date: 09/16/2024 10:06 AM Hospital Day 26 days Narrative:Follow-up visit for continued assessment and support. Assessment:Family coping positively with stresses of illness/hospitalization at this time. I met with patient family member and he shared that she is feeling better and hoping to go rehab then home. Intervention and Outcome:Provided emotional, spiritual support and listening presence. [employer] services accepted. Conversation to build trusting relationship. Provided pastoral presence. Provided spiritual guidance. Follow-up: yes Time in Direct Care:04 Mins Dheeraj Moreira 10/12/2024 * Latosha Winston RN - 10/12/2024 12:12 PM EST Report given via phone call to Rosalinda at approx [phone] Anupama Rand RN - 10/12/2024 7:52 AM ESTSummary: Physician Certificaton Statement for Non-emergency Ambulance Services Physician Certification Statement for Non-Emergency Ambulance Services Section I - General Information Lucero Bruno 1950 Medicare Number: [id number] Transport Date: 10/12/2024 (PCS is valid for round trips on this date and for all repetitive trips in the 60-day range as noted below.) [place] [facility] [place] Spec [id number] Destination: [facility] [address] [place] [address] Is the patient's stay covered under Medicare [...] van (i.e. seated during transport, without medical administrative or monitoring?): No 4) In addition to [...] the Centers of Medicare and Medicaid Serices ([facility]) to support the determination of medical necessity [...] attending physician, this form was signed by Road Hogger Operator * Chet Cloud - 10/12/2024 7:41 AM EST Office of Care Management/Advertising Dispatch Clerk Patient Name: Lucero Bruno : 1950 Patient has been offered a SNF bed at [facility] for today, 10/12/24 [facility] arranged for a 1330 transport. Ambulance will need: Medicare ambulance form completed and signed (MD or Space Operations RN/COMMERCIAL REAL ESTATE SALES MANAGER) Copy of patient demographics [place] Out of Hospital DNR/DNI order, if active No MD to MD report necessary Please call Nursing Report to and ask for A Wing deckhand maintenance. Info to accompany patient: Copies of Medication Administration Records and IV sheets for past 10 days. Plan: Advertising Dispatch Clerk will be available to the patient and Space Operations-RN and/or Social Workerfor further assistance. Patient will be discharged to: [facility] Chet Cloud Advertising Dispatch Clerk * Seth Avila - 10/11/2024 2:58 PM [...] Nutrition Recommendations: Puree diet, thin liquids per BAG MACHINE ADJUSTER 10/11. Continue bolus feeds of Nutren 1.5 [...] of this encounter: 77.6 kg (171 lb). [place] Body Weight (IBW) (kg): 45.45 Wt Readings [...] feeds. Order pended and team paged. 10/06: BAG MACHINE ADJUSTER continues to recommend NPO, per note 10/05. [...] VHP rather than Nutren 1.5, team aware. BAG MACHINE ADJUSTER continues to recommend NPO per 09/30 note. LBM 09/29, optimize regimen. Per EMR, pt with 4% wt loss in <1 week (196lbs on 09/24 to 188lbs on 09/28) which is clinically significant. Unable to complete full NFPE at this time. Planned for upcoming PEG placement. 09/29: TF Dc'd 09/28 @ 1835hr. BAG MACHINE ADJUSTER continues to recommend NPO, need for alternate [...] maxillary line): Not assessed Lean Muscle Loss Jewish region (temporalis muscle): None present Clavicle bone [...] RD, LD Clinical Nutrition * Areli Hathaway, BAG MACHINE ADJUSTER - 10/11/2024 2:17 PM EST Speech Therapy Note Patient Profile: Lucero Bruno is a 74 y.o. female with PMHx of A-fib, CHRISTOPHER, HLD, and prior IPH (04/2024) who [place] [facility] [place] for placement of Watchman with cardiology. She developed headaches and nausea post-operatively and was found to have a large R fkrhtwis-npxjxue-rpwvtajsk IPH, now s/p craniotomy. Patient was intubated from 09/16-09/21 with extubation complicated by stridor requiring re-intubation from 09/21-09/26 (11 days total). BAG MACHINE ADJUSTER has been following since 09/27 for communication [...] Comments Thin liquids X Water via straw [place] thick liquids Honey thick liquids Pureed solids [...] intake. Aubree's recent modified barium swallow revealed rtuq-tv-ptwktubg oropharyngeal dysphagia with primary deficits including prolonged [...] assistance due to significant motor limitations. Diagnosis: Zzhm-bf-knmekdrk oropharyngeal dysphagia 2/2 IPH, dysphonia 2/2 IPH [...] instrumental swallow evaluation. MET Plan: Therapy Frequency (BAG MACHINE ADJUSTER Eval): 3-5 times/wk Patient is in agreement with the plan of care. Total Minutes (Speech Language Pathology): 40 Areli Hathaway MS, [facility]-BAG MACHINE ADJUSTER Speech-Language Pathologist Inpatient Rehabilitation Pager # [phone] * Kymberly Baptiste, PT - 10/11/2024 10:01 AM EST Physical Therapy Note Treatment Number PT: 7 Patient profile: Lucero Bruno ( ) is a 74 y.o. 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 [...] plan as stated. Time IN / OUT: 5106-7370 Total Minutes, Physical Therapy: 24 Billing Code: TEF1 Kymberly Baptiste PT, DPT, NCS Pager: [phone] Physical Therapy Inpatient Rehabilitation Department * Lucie Caldera OT - 10/11/2024 9:36 AM EST Occupational Therapy Treatment Note Treatment Number OT: 6 Patient Dx:Lucero Bruno is a 74 y.o. female admitted on 09/16/2024. 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 Anticipated Discharge Disposition (OT): residential facility Equipment Recommendations: Equipment Needs Upon Discharge [...] OTR/L Occupational Therapy Rehabilitation Department Pager # [phone] * Val Connor PA - 10/11/2024 9:13 AM EST Images from the original note were not included. VASCULAR NEUROLOGY DAILY PROGRESS NOTE Admit Date 09/16/2024 Responsible Attending: Karli Morales MD Primary Provider: Leila Manjarrez [phone] Hospital Day: Hospital Day: 26 Patient ID [...] ml Net -1260 ml Labs Recent Labs 10/10/24234910/10/244310/09/245810/08/24 01110/07/24 011 WBC 9.97* 10.15* 12.45* 11.43* 15.48* HGB 10.9* 11.3* 10.4* 10.0* 10.7* HCT 33.9* 34.7* 32.1* 31.2* 32.4* PLATELET 260 230 207 190 211 NEUTROABS 7.49* 7.26* 9.95* 9.01* 13.16* Recent Labs 10/10/24234910/10/244310/09/245810/08/243 10/07/24 011 NA 139 138 140 138 138 [...] 09/16/2024 5:26 PM) Result Value WORKSTATION ID [id number] Impression Interval expansion of now large right-sided [...] who have questions please contact the health customer care agent that requested your imaging first. Electronically signed by: Lana Reinoso [facility] ([phone]), at 09/16/2024 6:[address] Head wo Contrast (Generic) (Exam End: 09/16/2024 11:21 PM) Result Value WORKSTATION ID [id number] Impression CT head: 1. Interval craniotomy with [...] who have questions please contact the health customer care agent that requested your imaging first. Electronically signed by: Armando Pan MD, [facility] ([phone]), at 09/17/2024 1:[address] Venogram Brain (Exam End: 09/16/2024 11:21 PM) Result Value WORKSTATION ID [id number] Impression CT head: 1. Interval craniotomy with [...] who have questions please contact the health customer care agent that requested your imaging first. Electronically signed by: Armando Pan MD, [facility] ([phone]), at 09/17/2024 1:42 AM XR Chest One View (Exam End: 09/16/2024 11:00 PM) Result Value WORKSTATION ID [id number] Impression Satisfactorily positioned enteric and endotracheal tubes. Left lower lobe atelectasis versus pneumonia. Thank you for letting us participate in the care of this patient. If you are a health care provider and have any questions regarding this report, please contact the number below. For patients who have questions please contact the health customer care agent that requested your imaging first. Electronically signed by: Pamela Beard MD, [facility] ([phone]), at 09/17/2024 12:09 AM XR Abdomen 1 view (Generic) (Exam End: 09/16/2024 11:00 PM) Result Value WORKSTATION ID [id number] Impression Satisfactorily positioned enteric and endotracheal tubes. Left lower lobe atelectasis versus pneumonia. Thank you for letting us participate in the care of this patient. If you are a health care provider and have any questions regarding this report, please contact the number below. For patients who have questions please contact the health customer care agent that requested your imaging first. Electronically signed by: Pamela Beard MD, [facility] ([phone]), at 09/17/2024 12:[address] Head wo Contrast (Generic) (Exam End: 09/17/2024 4:51 AM) Result Value WORKSTATION ID [id number] Impression Increased size and density of dominant [...] who have questions please contact the health customer care agent that requested your imaging first. Electronically signed by: Elvin Bolden DO, [facility] ([phone]), at 09/17/2024 8:38 AM XR Chest One View (Exam End: 09/17/2024 2:13 PM) Result Value WORKSTATION ID [id number] Impression 1. No focal opacity in lung [...] who have questions please contact the health customer care agent that requested your imaging first. Electronically signed by: Zoey Zabala MD, [facility] ([phone]), at 09/17/2024 2:43 PM XR Chest One View (Exam End: 09/18/2024 8:43 AM) Result Value WORKSTATION ID [id number] Impression Tubes and lines as described. Blunting of the left costophrenic angle suggests tiny layering left effusion with associated left basilar consolidation/atelectasis Thank you for letting us participate in the care of this patient. If you are a health care provider and have any questions regarding this report, please contact the number below. For patients who have questions please contact the health customer care agent that requested your imaging first. Electronically signed by: [facility] ([phone]), at 09/18/2024 9:29 AM XR Abdomen 1 view (Generic) (Exam End: 09/18/2024 12:31 PM) Result Value WORKSTATION ID [id number] Impression Dobbhoff tube tip along the greater curve of the stomach. Thank you for letting us participate in the care of this patient. If you are a health care provider and have any questions regarding this report, please contact the number below. For patients who have questions please contact the health customer care agent that requested your imaging first. Brain wwo Contrast (Generic) (Exam End: 09/19/2024 5:43 PM) Result Value WORKSTATION ID [id number] Impression Unchanged size of large right cerebral hemisphere ICH status post partial evacuation. Numerous small foci of decreased acute infarction both along and separate from the site of hemorrhage. These foci are present in both cerebral hemispheres and have a pattern most consistent with embolic infarction. No evidence of NEON MOLDER malignancy Thank you for letting us participate in the care of this patient. If you are a health care provider and have any questions regarding this report, please contact the number below. For patients who have questions please contact the health customer care agent that requested your imaging first. Electronically signed by: Rios Swartz MD, [facility] ([phone]), at 09/20/2024 8:[address] Head wo Contrast (Generic) (Exam End: 09/21/2024 3:50 AM) Result Value WORKSTATION ID [id number] Impression Stable hemorrhage right temporal, parietal, right [...] who have questions please contact the health customer care agent that requested your imaging first. Electronically signed by: Armando Pan MD, [facility] ([phone]), at 09/21/2024 4:55 AM XR Abdomen 1 view (Generic) (Exam End: 09/21/2024 2:01 PM) Result Value WORKSTATION ID [id number] Impression Dobbhoff tube and enteric tube sidehole [...] who have questions please contact the health customer care agent that requested your imaging first. Electronically signed by: Shraddha Cox MD, [facility] ([phone]), at 09/21/2024 3:40 PM XR Chest One View (Exam End: 09/21/2024 2:01 PM) Result Value WORKSTATION ID [id number] Impression ET tube with tip projecting approximately [...] who have questions please contact the health customer care agent that requested your imaging first. Electronically signed by: Octavio Scott MD, [facility] ([phone]), at 09/21/2024 5:[address] Head wo Contrast (Generic) (Exam End: 09/22/2024 4:02 AM) Result Value WORKSTATION ID [id number] Impression Stable head CT status post removal of subcutaneous drain. No new or enlarging hemorrhage. Stable pattern of mass effect Thank you for letting us participate in the care of this patient. If you are a health care provider and have any questions regarding this report, please contact the number below. For patients who have questions please contact the health customer care agent that requested your imaging first. Electronically signed by: Armando Pan MD, [facility] ([phone]), at 09/22/2024 4:[address] Angiogram Chest for Pulmonary Embolus w Contrast (Exam End: 09/26/2024 1:37 PM) Result Value WORKSTATION ID [id number] Impression 1. No pulmonary embolism. 2. Pulmonary [...] who have questions please contact the health customer care agent that requested your imaging first. Electronically signed by: Marvin Decker DO, [facility] ([phone]), at 09/26/2024 1:[address] Head wo Contrast (Generic) (Exam End: 09/26/2024 1:37 PM) Result Value WORKSTATION ID [id number] Impression 1. Stable right-sided parenchymal and subdural [...] who have questions please contact the health customer care agent that requested your imaging first. Electronically signed by: Smiley Cordova MD, [facility] ([phone]), at 09/26/2024 2:[address] Abdomen & Pelvis w Contrast (Exam End: 09/26/2024 1:37 PM) Result Value WORKSTATION ID [id number] Impression 1. No pulmonary embolism. 2. Pulmonary [...] who have questions please contact the health customer care agent that requested your imaging first. Electronically signed by: Marvin Decker DO, [facility] ([phone]), at 09/26/2024 1:54 PM XR Chest One View (Exam End: 09/28/2024 4:06 AM) Result Value WORKSTATION ID [id number] Impression 1. Limited examination. 2. Interval removal [...] who have questions please contact the health customer care agent that requested your imaging first. Electronically signed by: [facility] ([phone]), at 09/28/2024 4:12 AM XR Chest One View (Exam End: 09/28/2024 7:58 PM) Result Value WORKSTATION ID [id number] Impression 1. Slightly increased opacity in the [...] who have questions please contact the health customer care agent that requested your imaging first. Electronically signed by: Sammy Story MD, [facility] ([phone]), at 09/28/2024 8:09 PM XR Chest One View (Exam End: 09/29/2024 1:13 PM) Result Value WORKSTATION ID [id number] Impression 1. Limited examination. 2. Stable position [...] who have questions please contact the health customer care agent that requested your imaging first. Electronically signed [facility]: [facility] ([phone]), at 09/30/2024 12:[address] Head wo Contrast (Generic) (Exam End: 10/04/2024 1:40 AM) Result Value WORKSTATION ID [id number] Impression 1. Overall interval improvement of the [...] who have questions please contact the health customer care agent that requested your imaging first. Electronically signed by: Armando Pan MD, [facility] ([phone]), at 10/04/2024 2:12 AM MRI Brain wwo Contrast (Generic) (Exam End: 10/04/2024 10:30 PM) Result Value WORKSTATION ID [id number] Impression 1. Fluid collections in the right [...] who have questions please contact the health customer care agent that requested your imaging first. Electronically signed by: Armando Pan MD, [facility] ([phone]), at 10/05/2024 12:31 AM XR Chest One View (Exam End: 10/06/2024 10:59 AM) Result Value WORKSTATION ID [id number] Impression Improved but persistent retrocardiac patchy opacity [...] who have questions please contact the health customer care agent that requested your imaging first. Electronically signed by: MICHELLE ARSHAD MD, [facility] ([phone]), at 10/06/2024 3:00 PM XR Fluoro Esophagram (Modified/Video Swallow Pharynx) (Exam End: 10/08/2024 4:10 PM) Result Value WORKSTATION ID [id number] Impression Abnormal modified barium swallow with silent [...] who have questions please contact the health customer care agent that requested your imaging first. Electronically signed by: Victor Manuel Smith MD, [facility] ([phone]), at 10/08/2024 4:[address] Head wo Contrast (Generic) (Exam End: 10/07/2024 3:25 PM) Result Value WORKSTATION ID [id number] Impression 1. Interval decreased prominence of RIGHT [...] who have questions please contact the health customer care agent that requested your imaging first. Electronically signed by: Domingo Puentes [facility] ([phone]), at 10/07/2024 4:11 PM ASSESSMENT & PLAN [...] PRN #GI - >dysphagia - follow up BAG MACHINE ADJUSTER recs - Sips and Chips (Hold Meds) [...] Other - Activity: as tolerated - Dispo: Jail facility - Last BM: Last Bowel Movement: [...] Please page Vascular Neurology with any questions, #[id number] ADRIANA Aguirre Department of Neurology [place] [id number] Associated attestation - Karli Morales MD - [...] Karli Morales MD Primary Provider: Leila Manjarrez [phone] Hospital Day: Hospital Day: 25 Patient ID [...] -470 ml Labs Recent Labs 10/10/24 0044 10/09/24 0059 10/08/24 0113 10/07/24 0112 10/06/24 0033 WBC 10.15* [...] 09/16/2024 5:26 PM) Result Value WORKSTATION ID [id number] Impression Interval expansion of now large right-sided [...] who have questions please contact the health customer care agent that requested your imaging first. Electronically signed by: Lana Reinoso [facility] ([phone]), at 09/16/2024 6:[address] Head wo Contrast (Generic) (Exam End: 09/16/2024 11:21 PM) Result Value WORKSTATION ID [id number] Impression CT head: 1. Interval craniotomy with [...] who have questions please contact the health customer care agent that requested your imaging first. Electronically signed by: Armando Pan MD, [facility] ([phone]), at 09/17/2024 1:[address] Venogram Brain (Exam End: 09/16/2024 11:21 PM) Result Value WORKSTATION ID [id number] Impression CT head: 1. Interval craniotomy with [...] who have questions please contact the health customer care agent that requested your imaging first. Electronically signed by: Armando Pan MD, [facility] ([phone]), at 09/17/2024 1:42 AM XR Chest One View (Exam End: 09/16/2024 11:00 PM) Result Value WORKSTATION ID [id number] Impression Satisfactorily positioned enteric and endotracheal tubes. Left lower lobe atelectasis versus pneumonia. Thank you for letting us participate in the care of this patient. If you are a health care provider and have any questions regarding this report, please contact the number below. For patients who have questions please contact the health customer care agent that requested your imaging first. Electronically signed by: Pamela Beard MD, [facility] ([phone]), at 09/17/2024 12:09 AM XR Abdomen 1 view (Generic) (Exam End: 09/16/2024 11:00 PM) Result Value WORKSTATION ID [id number] Impression Satisfactorily positioned enteric and endotracheal tubes. Left lower lobe atelectasis versus pneumonia. Thank you for letting us participate in the care of this patient. If you are a health care provider and have any questions regarding this report, please contact the number below. For patients who have questions please contact the health customer care agent that requested your imaging first. Electronically signed by: Pamela Beard MD, [facility] ([phone]), at 09/17/2024 12:[address] Head wo Contrast (Generic) (Exam End: 09/17/2024 4:51 AM) Result Value WORKSTATION ID [id number] Impression Increased size and density of dominant [...] who have questions please contact the health customer care agent that requested your imaging first. Electronically signed by: Elvin Bolden DO, [facility] ([phone]), at 09/17/2024 8:38 AM XR Chest One View (Exam End: 09/17/2024 2:13 PM) Result Value WORKSTATION ID [id number] Impression 1. No focal opacity in lung [...] who have questions please contact the health customer care agent that requested your imaging first. Electronically signed by: Zoey Zabala MD, [facility] ([phone]), at 09/17/2024 2:43 PM XR Chest One View (Exam End: 09/18/2024 8:43 AM) Result Value WORKSTATION ID [id number] Impression Tubes and lines as described. Blunting of the left costophrenic angle suggests tiny layering left effusion with associated left basilar consolidation/atelectasis Thank you for letting us participate in the care of this patient. If you are a health care provider and have any questions regarding this report, please contact the number below. For patients who have questions please contact the health customer care agent that requested your imaging first. Abdomen 1 view (Generic) (Exam End: 09/18/2024 12:31 PM) Result Value WORKSTATION ID [id number] Impression Dobbhoff tube tip along the greater curve of the stomach. Thank you for letting us participate in the care of this patient. If you are a health care provider and have any questions regarding this report, please contact the number below. For patients who have questions please contact the health customer care agent that requested your imaging first. Brain wwo Contrast (Generic) (Exam End: 09/19/2024 5:43 PM) Result Value WORKSTATION ID [id number] Impression Unchanged size of large right cerebral hemisphere ICH status post partial evacuation. Numerous small foci of decreased acute infarction both along and separate from the site of hemorrhage. These foci are present in both cerebral hemispheres and have a pattern most consistent with embolic infarction. No evidence of NEON MOLDER malignancy Thank you for letting us participate in the care of this patient. If you are a health care provider and have any questions regarding this report, please contact the number below. For patients who have questions please contact the health customer care agent that requested your imaging first. Electronically signed by: Rios Swartz MD, [facility] ([phone]), at 09/20/2024 8:[address] Head wo Contrast (Generic) (Exam End: 09/21/2024 3:50 AM) Result Value WORKSTATION ID [id number] Impression Stable hemorrhage right temporal, parietal, right [...] who have questions please contact the health customer care agent that requested your imaging first. Electronically signed by: Armando Pan MD, [facility] ([phone]), at 09/21/2024 4:55 AM XR Abdomen 1 view (Generic) (Exam End: 09/21/2024 2:01 PM) Result Value WORKSTATION ID [id number] Impression Dobbhoff tube and enteric tube sidehole [...] who have questions please contact the health customer care agent that requested your imaging first. Electronically signed by: Shraddha Cox MD, [facility] ([phone]), at 09/21/2024 3:40 PM XR Chest One View (Exam End: 09/21/2024 2:01 PM) Result Value WORKSTATION ID [id number] Impression ET tube with tip projecting approximately [...] who have questions please contact the health customer care agent that requested your imaging first. Electronically signed by: Octavio Scott MD, [facility] ([phone]), at 09/21/2024 5:[address] Head wo Contrast (Generic) (Exam End: 09/22/2024 4:02 AM) Result Value WORKSTATION ID [id number] Impression Stable head CT status post removal of subcutaneous drain. No new or enlarging hemorrhage. Stable pattern of mass effect Thank you for letting us participate in the care of this patient. If you are a health care provider and have any questions regarding this report, please contact the number below. For patients who have questions please contact the health customer care agent that requested your imaging first. Electronically signed by: Armando Pan MD, [facility] ([phone]), at 09/22/2024 4:[address] Angiogram Chest for Pulmonary Embolus w Contrast (Exam End: 09/26/2024 1:37 PM) Result Value WORKSTATION ID [id number] Impression 1. No pulmonary embolism. 2. Pulmonary [...] who have questions please contact the health customer care agent that requested your imaging first. Electronically signed by: Marvin Decker DO, [facility] ([phone]), at 09/26/2024 1:[address] Head wo Contrast (Generic) (Exam End: 09/26/2024 1:37 PM) Result Value WORKSTATION ID [id number] Impression 1. Stable right-sided parenchymal and subdural [...] who have questions please contact the health customer care agent that requested your imaging first. Electronically signed by: Smiley Cordova MD, [facility] ([phone]), at 09/26/2024 2:[address] Abdomen & Pelvis w Contrast (Exam End: 09/26/2024 1:37 PM) Result Value WORKSTATION ID [id number] Impression 1. No pulmonary embolism. 2. Pulmonary [...] who have questions please contact the health customer care agent that requested your imaging first. Electronically [facility]: [facility] ([phone]), at 09/26/2024 1:54 PM XR Chest One View (Exam End: 09/28/2024 4:06 AM) Result Value WORKSTATION ID [id number] Impression 1. Limited examination. 2. Interval removal [...] who have questions please contact the health customer care agent that requested your imaging first. Electronically signed by: Marvin Decker DO [facility] ([phone]), at 09/28/2024 4:12 AM XR Chest One View (Exam End: 09/28/2024 7:58 PM) Result Value WORKSTATION ID [id number] Impression 1. Slightly increased opacity in the [...] who have questions please contact the health customer care agent that requested your imaging first. Electronically signed by: Sammy Story MD, [facility] ([phone]), at 09/28/2024 8:09 PM XR Chest One View (Exam End: 09/29/2024 1:13 PM) Result Value WORKSTATION ID [id number] Impression 1. Limited examination. 2. Stable position [...] who have questions please contact the health customer care agent that requested your imaging first. Electronically signed by: Marvin Decker DO, [facility] ([phone]), at 09/30/2024 12:[address] Head wo Contrast (Generic) (Exam End: 10/04/2024 1:40 AM) Result Value WORKSTATION ID [id number] Impression 1. Overall interval improvement of the [...] who have questions please contact the health customer care agent that requested your imaging first. Electronically signed by: Armando Pan MD, [facility] ([phone]), at 10/04/2024 2:12 AM MRI Brain wwo Contrast (Generic) (Exam End: 10/04/2024 10:30 PM) Result Value WORKSTATION ID [id number] Impression 1. Fluid collections in the right [...] who have questions please contact the health customer care agent that requested your imaging first. Electronically signed by: Armando Pan MD, [facility] ([phone]), at 10/05/2024 12:31 AM XR Chest One View (Exam End: 10/06/2024 10:59 AM) Result Value WORKSTATION ID [id number] Impression Improved but persistent retrocardiac patchy opacity [...] who have questions please contact the health customer care agent that requested your imaging first. Electronically signed by: MICHELLE ARSHAD MD, [facility] ([phone]), at 10/06/2024 3:00 PM XR Fluoro Esophagram (Modified/Video Swallow Pharynx) (Exam End: 10/08/2024 4:10 PM) Result Value WORKSTATION ID [id number] Impression Abnormal modified barium swallow with silent [...] who have questions please contact the health customer care agent that requested your imaging first. Electronically signed by: Victor Manuel Smith MD, [facility] ([phone]), at 10/08/2024 4:[address] Head wo Contrast (Generic) (Exam End: 10/07/2024 3:25 PM) Result Value WORKSTATION ID [id number] Impression 1. Interval decreased prominence of RIGHT [...] who have questions please contact the health customer care agent that requested your imaging first. 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 MACHINE ADJUSTER recs - Sips and Chips (Hold Meds) [...] Other - Activity: as tolerated - Dispo: Jail facility - Last BM: Last Bowel Movement: [...] Please page Vascular Neurology with any questions, #[id number] ADRIANA JONAS Department [place] [address] Associated attestation - Karli Morales [...] Karli Morales MD Primary Provider: Leila Manjarrez [phone] Hospital Day: Hospital Day: 24 Patient ID [...] ml Net -230 ml Labs Recent Labs 10/09/245810/08/24 0113 10/07/24 0112 10/06/24 0033 10/05/24 0008 WBC 12.45* 11.43* 15.48* 16.59* 13.56* HGB 10.4* 10.0* 10.7* 10.8* 10.8* HCT 32.1* 31.2* 32.4* 32.9* 33.5* PLATELET 207 190 211 237 241 NEUTROABS 9.95* 9.01* 13.16* 14.40* 11.69* Recent Labs 10/09/245810/08/24 0113 10/07/24 0112 10/06/24 0033 10/05/24 0008 [...] 09/16/2024 5:26 PM) Result Value WORKSTATION ID [id number] Impression Interval expansion of now large right-sided [...] who have questions please contact the health customer care agent that requested your imaging first. Electronically signed by: Lana Reinoso [facility] ([phone]), at 09/16/2024 6:[address] Head wo Contrast (Generic) (Exam End: 09/16/2024 11:21 PM) Result Value WORKSTATION ID [id number] Impression CT head: 1. Interval craniotomy with [...] who have questions please contact the health customer care agent that requested your imaging first. Electronically signed by: Armando Pan MD, [facility] ([phone]), at 09/17/2024 1:[address] Venogram Brain (Exam End: 09/16/2024 11:21 PM) Result Value WORKSTATION ID [id number] Impression CT head: 1. Interval craniotomy with [...] who have questions please contact the health customer care agent that requested your imaging first. Electronically signed by: Armando Pan MD, [facility] ([phone]), at 09/17/2024 1:42 AM XR Chest One View (Exam End: 09/16/2024 11:00 PM) Result Value WORKSTATION ID [id number] Impression Satisfactorily positioned enteric and endotracheal tubes. Left lower lobe atelectasis versus pneumonia. Thank you for letting us participate in the care of this patient. If you are a health care provider and have any questions regarding this report, please contact the number below. For patients who have questions please contact the health customer care agent that requested your imaging first. Electronically signed by: Pamela Beard MD, [facility] ([phone]), at 09/17/2024 12:09 AM XR Abdomen 1 view (Generic) (Exam End: 09/16/2024 11:00 PM) Result Value WORKSTATION ID [id number] Impression Satisfactorily positioned enteric and endotracheal tubes. Left lower lobe atelectasis versus pneumonia. Thank you for letting us participate in the care of this patient. If you are a health care provider and have any questions regarding this report, please contact the number below. For patients who have questions please contact the health customer care agent that requested your imaging first. Electronically signed by: Pamela Beard MD, [facility] ([phone]), at 09/17/2024 12:[address] Head wo Contrast (Generic) (Exam End: 09/17/2024 4:51 AM) Result Value WORKSTATION ID [id number] Impression Increased size and density of dominant [...] who have questions please contact the health customer care agent that requested your imaging first. Electronically signed by: Elvin Bolden DO, [facility] ([phone]), at 09/17/2024 8:38 AM XR Chest One View (Exam End: 09/17/2024 2:13 PM) Result Value WORKSTATION ID [id number] Impression 1. No focal opacity in lung [...] who have questions please contact the health customer care agent that requested your imaging first. Electronically signed by: Zoey Zabala MD, [facility] ([phone]), at 09/17/2024 2:43 PM XR Chest One View (Exam End: 09/18/2024 8:43 AM) Result Value WORKSTATION ID [id number] Impression Tubes and lines as described. Blunting of the left costophrenic angle suggests tiny layering left effusion with associated left basilar consolidation/atelectasis Thank you for letting us participate in the care of this patient. If you are a health care provider and have any questions regarding this report, please contact the number below. For patients who have questions please contact the health customer care agent that requested your imaging first. Electronically signed by: Arie Bhat [facility] ([phone]), at 09/18/2024 9:29 AM XR Abdomen 1 view (Generic) (Exam End: 09/18/2024 12:31 PM) Result Value WORKSTATION ID [id number] Impression Dobbhoff tube tip along the greater curve of the stomach. Thank you for letting us participate in the care of this patient. If you are a health care provider and have any questions regarding this report, please contact the number below. For patients who have questions please contact the health customer care agent that requested your imaging first. Electronically signed by: Arie Bhat [facility] ([phone]), at 09/18/2024 1:05 PM MRI Brain wwo Contrast (Generic) (Exam End: 09/19/2024 5:43 PM) Result Value WORKSTATION ID [id number] Impression Unchanged size of large right cerebral hemisphere ICH status post partial evacuation. Numerous small foci of decreased acute infarction both along and separate from the site of hemorrhage. These foci are present in both cerebral hemispheres and have a pattern most consistent with embolic infarction. No evidence of NEON MOLDER malignancy Thank you for letting us participate in the care of this patient. If you are a health care provider and have any questions regarding this report, please contact the number below. For patients who have questions please contact the health customer care agent that requested your imaging first. Electronically signed by: Rios Swartz MD, [facility] ([phone]), at 09/20/2024 8:[address] Head wo Contrast (Generic) (Exam End: 09/21/2024 3:50 AM) Result Value WORKSTATION ID [id number] Impression Stable hemorrhage right temporal, parietal, right [...] who have questions please contact the health customer care agent that requested your imaging first. Electronically signed by: Armando Pan MD, [facility] ([phone]), at 09/21/2024 4:55 AM XR Abdomen 1 view (Generic) (Exam End: 09/21/2024 2:01 PM) Result Value WORKSTATION ID [id number] Impression Dobbhoff tube and enteric tube sidehole [...] who have questions please contact the health customer care agent that requested your imaging first. Electronically signed by: Shraddha Cox MD, [facility] ([phone]), at 09/21/2024 3:40 PM XR Chest One View (Exam End: 09/21/2024 2:01 PM) Result Value WORKSTATION ID [id number] Impression ET tube with tip projecting approximately [...] who have questions please contact the health customer care agent that requested your imaging first. Electronically signed by: Octavio Scott MD, [facility] ([phone]), at 09/21/2024 5:[address] Head wo Contrast (Generic) (Exam End: 09/22/2024 4:02 AM) Result Value WORKSTATION ID [id number] Impression Stable head CT status post removal of subcutaneous drain. No new or enlarging hemorrhage. Stable pattern of mass effect Thank you for letting us participate in the care of this patient. If you are a health care provider and have any questions regarding this report, please contact the number below. For patients who have questions please contact the health customer care agent that requested your imaging first. Electronically signed by: Armando Pan MD, [facility] ([phone]), at 09/22/2024 4:[address] Angiogram Chest for Pulmonary Embolus w Contrast (Exam End: 09/26/2024 1:37 PM) Result Value WORKSTATION ID [id number] Impression 1. No pulmonary embolism. 2. Pulmonary [...] who have questions please contact the health customer care agent that requested your imaging first. Electronically signed by: Marvin Decker DO, [facility] ([phone]), at 09/26/2024 1:[address] Head wo Contrast (Generic) (Exam End: 09/26/2024 1:37 PM) Result Value WORKSTATION ID [id number] Impression 1. Stable right-sided parenchymal and subdural [...] who have questions please contact the health customer care agent that requested your imaging first. Electronically signed by: Smiley Cordova MD, [facility] ([phone]), at 09/26/2024 2:[address] Abdomen & Pelvis w Contrast (Exam End: 09/26/2024 1:37 PM) Result Value WORKSTATION ID [id number] Impression 1. No pulmonary embolism. 2. Pulmonary [...] who have questions please contact the health customer care agent that requested your imaging first. Electronically signed by: Marvin Decker DO, [facility] ([phone]), at 09/26/2024 1:54 PM XR Chest One View (Exam End: 09/28/2024 4:06 AM) Result Value WORKSTATION ID [id number] Impression 1. Limited examination. 2. Interval removal [...] who have questions please contact the health customer care agent that requested your imaging first. Electronically signed by: Marvin Decker DO, [facility] ([phone]), at 09/28/2024 4:12 AM XR Chest One View (Exam End: 09/28/2024 7:58 PM) Result Value WORKSTATION ID [id number] Impression 1. Slightly increased opacity in the [...] who have questions please contact the health customer care agent that requested your imaging first. Electronically signed by: Sammy Story MD, [facility] ([phone]), at 09/28/2024 8:09 PM XR Chest One View (Exam End: 09/29/2024 1:13 PM) Result Value WORKSTATION ID [id number] Impression 1. Limited examination. 2. Stable position [...] who have questions please contact the health customer care agent that requested your imaging first. Electronically signed by: Marvin Decker DO [facility] ([phone]), at 09/30/2024 12:[address] Head wo Contrast (Generic) (Exam End: 10/04/2024 1:40 AM) Result Value WORKSTATION ID [id number] Impression 1. Overall interval improvement of the [...] who have questions please contact the health customer care agent that requested your imaging first. Electronically signed by: Armando Pan MD, [facility] ([phone]), at 10/04/2024 2:12 AM MRI Brain wwo Contrast (Generic) (Exam End: 10/04/2024 10:30 PM) Result Value WORKSTATION ID [id number] Impression 1. Fluid collections in the right [...] who have questions please contact the health customer care agent that requested your imaging first. Electronically signed by: Armando Pan MD, [facility] ([phone]), at 10/05/2024 12:31 AM XR Chest One View (Exam End: 10/06/2024 10:59 AM) Result Value WORKSTATION ID [id number] Impression Improved but persistent retrocardiac patchy opacity [...] who have questions please contact the health customer care agent that requested your imaging first. Electronically signed by: MICHELLE ARSHAD MD, [facility] ([phone]), at 10/06/2024 3:00 PM XR Fluoro Esophagram (Modified/Video Swallow Pharynx) (Exam End: 10/08/2024 4:10 PM) Result Value WORKSTATION ID [id number] Impression Abnormal modified barium swallow with silent [...] who have questions please contact the health customer care agent that requested your imaging first. Electronically signed by: Victor Manuel Smith MD, [facility] ([phone]), at 10/08/2024 4:[address] Head wo Contrast (Generic) (Exam End: 10/07/2024 3:25 PM) Result Value WORKSTATION ID [id number] Impression 1. Interval decreased prominence of RIGHT [...] who have questions please contact the health customer care agent that requested your imaging first. 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 female with PMHx of A-fib, CHRISTOPHER, HLD, and prior IPH (04/2024) who [place] [facility] [place] for placement of Watchman with cardiology. She developed headaches and nausea post-operatively and was found to have a large R hqdufbql-nttkoqb-lrzelvixq IPH, now s/p craniotomy. Patient was intubated from 09/16-09/21 with extubation complicated by stridor requiring re-intubation from 09/21-09/26 (11 days total). BAG MACHINE ADJUSTER has been following since 09/27 for communication [...] Secretion Management X Bolus Presentations: Thin liquid [place] thick liquid Puree Soft solid Oral Preparatory [...] to assess oropharyngeal swallow function following R bdroupc-drohecf-olojtoxvp IPH (09/16). Oral motor examination revealed interval improvements in orofacial agility and coordination, though her movements remain sluggish and effortful. Her speech intelligibility has improved alongside improvements in orofacial control. Aubree required physical assistance and frequent repositioning to maintain upright posture throughout this study due to left-sided weakness and inattention. Imaging revealed qcuj-ba-stlwxwel oropharyngeal dysphagia. Aubree's oral phase was efficient and timely with liquids but prolonged and disorganized with reduced lingual propulsion of purees and soft solids requiring intermittent cues to clear the oral cavity. Aubree's pharyngeal swallow was characterized by varying timeliness, decreased epiglottic inversion likely related to decreased anterior hyolaryngeal excursion, and decreased pharyngeal constriction leading to xeqn-cs-nywsaryz residue with purees and soft solids. Aubree [...] follow and trial more advanced consistencies. Diagnosis: Cjqk-tf-nisjlmhh oropharyngeal dysphagia 2/2 IPH, dysphonia 2/2 IPH [...] instrumental swallow evaluation. MET Plan: Therapy Frequency (BAG MACHINE ADJUSTER Eval): 3-5 times/wk Patient is in agreement with the plan of care. Total Minutes (Speech Language Pathology): 20 (clinical) + 60 (MBS) = 80 Thanks for the opportunity to contribute to this patient's care. Please feel free to page me with any questions or concerns. Areli Hathaway MS, [facility]-BAG MACHINE ADJUSTER Speech-Language Pathologist Inpatient Rehabilitation Pager # [phone] * Anupama Pastrana RN - 10/08/2024 12:36 PM ESTSummary: [facility] [place] choice[place]expanded Based on discussions with the multi-disciplinary healthcare team, the patient would benefit from SNF level of care at discharge. I have met with the patient and outside sales account representative son Don Pollard to: discuss discharge planning needs. provide the [facility], Office of Care Management letter from the [place] pertaining to rehab referrals. provide a letter describing our affiliations within the [facility] and educate about their right to choose where referrals are sent. provide the [facility] Star Quality Rating handout. review the different levels of rehab including SNF, swing, and acute. provide a list of facilities within their preferred geographic area. request that they provide at least three choices for referral. They have requested referrals to: [facility] (LTC Only) [address] [place] [address] [facility] [address] [place] [address] [address] [facility] [address] [place] [id number] Note routed to a Advertising Dispatch Clerk who will communicate referrals to facilities and provide any required information. Anupama Pastrana MSN, RN ACM-RN [facility] environmental solutions engineer * Anitra Ruiz DO - 10/08/2024 7:26 AM EST Images from the original note were not included. VASCULAR NEUROLOGY DAILY PROGRESS NOTE Admit Date 09/16/2024 Responsible Attending: Karli Morales MD Primary Provider: Leila Manjarrez [phone] Hospital Day: Hospital Day: 23 Patient ID [...] Piggyback:2] Out: 1050 [Urine:1050] Labs Recent Labs 10/08/2411210/07/2411110/06/24 0033 10/05/24 0008 10/04/24 0029 WBC 11.43* 15.48* 16.59* 13.56* 14.67* HGB 10.0* 10.7* 10.8* 10.8* 10.4* HCT 31.2* 32.4* 32.9* 33.5* 32.8* PLATELET 190 211 237 241 303 NEUTROABS 9.01* 13.16* 14.40* 11.69* 12.52* Recent Labs 10/08/2411210/07/2411110/06/24 0033 10/05/24 0008 10/04/24 0029 NA 138 138 [...] Procedure Component Value - Date/Time Blood culture [[id number]] Collected: 09/26/24 1442 Lab Status: Final result Specimen: Blood, Venous Updated: 10/01/24 1602 Blood Culture No growth at 120 hours Blood culture [[id number]] Collected: 09/26/24 1453 Lab Status: Final result Specimen: Blood, Venous Updated: 10/01/24 1602 Blood Culture No growth at 120 hours Imaging/EKG Results for orders placed or performed during the hospital encounter of 09/16/24 CT Head wo Contrast (Generic) (Exam End: 09/16/2024 5:26 PM) Result Value WORKSTATION ID [id number] Impression Interval expansion of now large right-sided [...] who have questions please contact the health customer care agent that requested your imaging first. Electronically signed by: Lana Reinoso [facility] ([phone]), at 09/16/2024 6:[address] Head wo Contrast (Generic) (Exam End: 09/16/2024 11:21 PM) Result Value WORKSTATION ID [id number] Impression CT head: 1. Interval craniotomy with [...] of active hemorrhage right parietal) with Sherrie WRGIHT on 09/17/2024 1:12 AM and verified that the results were understood. Thank you for letting us participate in the care of this patient. If you are a health care provider and have any questions regarding this report, please contact the number below. For patients who have questions please contact the health customer care agent that requested your imaging first. Electronically signed by: Armando Pan MD, [facility] ([phone]), at 09/17/2024 1:[address] Venogram Brain (Exam End: 09/16/2024 11:21 PM) Result Value WORKSTATION ID [id number] Impression CT head: 1. Interval craniotomy with [...] who have questions please contact the health customer care agent that requested your imaging first. Electronically signed by: Armando Pan MD, [facility] ([phone]), at 09/17/2024 1:42 AM XR Chest One View (Exam End: 09/16/2024 11:00 PM) Result Value WORKSTATION ID [id number] Impression Satisfactorily positioned enteric and endotracheal tubes. Left lower lobe atelectasis versus pneumonia. Thank you for letting us participate in the care of this patient. If you are a health care provider and have any questions regarding this report, please contact the number below. For patients who have questions please contact the health customer care agent that requested your imaging first. Electronically signed by: Pamela Beard MD, [facility] ([phone]), at 09/17/2024 12:09 AM XR Abdomen 1 view (Generic) (Exam End: 09/16/2024 11:00 PM) Result Value WORKSTATION ID [id number] Impression Satisfactorily positioned enteric and endotracheal tubes. Left lower lobe atelectasis versus pneumonia. Thank you for letting us participate in the care of this patient. If you are a health care provider and have any questions regarding this report, please contact the number below. For patients who have questions please contact the health customer care agent that requested your imaging first. Electronically signed by: Pamela Beard MD, [facility] ([phone]), at 09/17/2024 12:[address] Head wo Contrast (Generic) (Exam End: 09/17/2024 4:51 AM) Result Value WORKSTATION ID [id number] Impression Increased size and density of dominant [...] who have questions please contact the health customer care agent that requested your imaging first. Electronically signed by: Elvin Bolden DO, [facility] ([phone]), at 09/17/2024 8:38 AM XR Chest One View (Exam End: 09/17/2024 2:13 PM) Result Value WORKSTATION ID [id number] Impression 1. No focal opacity in lung [...] who have questions please contact the health customer care agent that requested your imaging first. Electronically signed by: Zoey Zabala MD, [facility] ([phone]), at 09/17/2024 2:43 PM XR Chest One View (Exam End: 09/18/2024 8:43 AM) Result Value WORKSTATION ID [id number] Impression Tubes and lines as described. Blunting of the left costophrenic angle suggests tiny layering left effusion with associated left basilar consolidation/atelectasis Thank you for letting us participate in the care of this patient. If you are a health care provider and have any questions regarding this report, please contact the number below. For patients who have questions please contact the health customer care agent that requested your imaging first. Abdomen 1 view (Generic) (Exam End: 09/18/2024 12:31 PM) Result Value WORKSTATION ID [id number] Impression Dobbhoff tube tip along the greater curve of the stomach. Thank you for letting us participate in the care of this patient. If you are a health care provider and have any questions regarding this report, please contact the number below. For patients who have questions please contact the health customer care agent that requested your imaging first. Electronically signed by: Arie Bhat [facility] ([phone]), at 09/18/2024 1:05 PM MRI Brain wwo Contrast (Generic) (Exam End: 09/19/2024 5:43 PM) Result Value WORKSTATION ID [id number] Impression Unchanged size of large right cerebral hemisphere ICH status post partial evacuation. Numerous small foci of decreased acute infarction both along and separate from the site of hemorrhage. These foci are present in both cerebral hemispheres and have a pattern most consistent with embolic infarction. No evidence of NEON MOLDER malignancy Thank you for letting us participate in the care of this patient. If you are a health care provider and have any questions regarding this report, please contact the number below. For patients who have questions please contact the health customer care agent that requested your imaging first. Electronically signed by: Rios Swartz MD, [facility] ([phone]), at 09/20/2024 8:[address] Head wo Contrast (Generic) (Exam End: 09/21/2024 3:50 AM) Result Value WORKSTATION ID [id number] Impression Stable hemorrhage right temporal, parietal, right [...] who have questions please contact the health customer care agent that requested your imaging first. Electronically signed by: Armando Pan MD, [facility] ([phone]), at 09/21/2024 4:55 AM XR Abdomen 1 view (Generic) (Exam End: 09/21/2024 2:01 PM) Result Value WORKSTATION ID [id number] Impression Dobbhoff tube and enteric tube sidehole [...] who have questions please contact the health customer care agent that requested your imaging first. Electronically signed by: Shraddha Cox MD, [facility] ([phone]), at 09/21/2024 3:40 PM XR Chest One View (Exam End: 09/21/2024 2:01 PM) Result Value WORKSTATION ID [id number] Impression ET tube with tip projecting approximately [...] who have questions please contact the health customer care agent that requested your imaging first. Electronically signed by: Octavio Scott MD, [facility] ([phone]), at 09/21/2024 5:[address] Head wo Contrast (Generic) (Exam End: 09/22/2024 4:02 AM) Result Value WORKSTATION ID [id number] Impression Stable head CT status post removal of subcutaneous drain. No new or enlarging hemorrhage. Stable pattern of mass effect Thank you for letting us participate in the care of this patient. If you are a health care provider and have any questions regarding this report, please contact the number below. For patients who have questions please contact the health customer care agent that requested your imaging first. Electronically signed by: Armando Pan MD, [facility] ([phone]), at 09/22/2024 4:[address] Angiogram Chest for Pulmonary Embolus w Contrast (Exam End: 09/26/2024 1:37 PM) Result Value WORKSTATION ID [id number] Impression 1. No pulmonary embolism. 2. Pulmonary [...] who have questions please contact the health customer care agent that requested your imaging first. Electronically signed by: Marvin Decker DO, [facility] ([phone]), at 09/26/2024 1:[address] Head wo Contrast (Generic) (Exam End: 09/26/2024 1:37 PM) Result Value WORKSTATION ID [id number] Impression 1. Stable right-sided parenchymal and subdural [...] who have questions please contact the health customer care agent that requested your imaging first. Electronically signed by: Smiley Cordova MD, [facility] ([phone]), at 09/26/2024 2:[address] Abdomen & Pelvis w Contrast (Exam End: 09/26/2024 1:37 PM) Result Value WORKSTATION ID [id number] Impression 1. No pulmonary embolism. 2. Pulmonary [...] who have questions please contact the health customer care agent that requested your imaging first. Electronically signed by: Marvin Decker DO, [facility] ([phone]), at 09/26/2024 1:54 PM XR Chest One View (Exam End: 09/28/2024 4:06 AM) Result Value WORKSTATION ID [id number] Impression 1. Limited examination. 2. Interval removal [...] who have questions please contact the health customer care agent that requested your imaging first. Electronically signed by: Marvin Decker DO, [facility] ([phone]), at 09/28/2024 4:12 AM XR Chest One View (Exam End: 09/28/2024 7:58 PM) Result Value WORKSTATION ID [id number] Impression 1. Slightly increased opacity in the [...] who have questions please contact the health customer care agent that requested your imaging first. Electronically signed by: Sammy Story MD, [facility] ([phone]), at 09/28/2024 8:09 PM XR Chest One View (Exam End: 09/29/2024 1:13 PM) Result Value WORKSTATION ID [id number] Impression 1. Limited examination. 2. Stable position [...] who have questions please contact the health customer care agent that requested your imaging first. Electronically signed by: Marvin Decker DO, [facility] ([phone]), at 09/30/2024 12:[address] Head wo Contrast (Generic) (Exam End: 10/04/2024 1:40 AM) Result Value WORKSTATION ID [id number] Impression 1. Overall interval improvement of the [...] who have questions please contact the health customer care agent that requested your imaging first. Electronically signed by: Armando Pan MD, [facility] ([phone]), at 10/04/2024 2:12 AM MRI Brain wwo Contrast (Generic) (Exam End: 10/04/2024 10:30 PM) Result Value WORKSTATION ID [id number] Impression 1. Fluid collections in the right [...] who have questions please contact the health customer care agent that requested your imaging first. Electronically signed by: Armando Pan MD, [facility] ([phone]), at 10/05/2024 12:31 AM XR Chest One View (Exam End: 10/06/2024 10:59 AM) Result Value WORKSTATION ID [id number] Impression Improved but persistent retrocardiac patchy opacity [...] who have questions please contact the health customer care agent that requested your imaging first. Electronically signed by: MICHELLE ARSHAD MD, [facility] ([phone]), at 10/06/2024 3:[address] Head wo Contrast (Generic) (Exam End: 10/07/2024 3:25 PM) Result Value WORKSTATION ID [id number] Impression 1. Interval decreased prominence of RIGHT [...] who have questions please contact the health customer care agent that requested your imaging first. Electronically signed by: Domingo Puentes [facility] ([phone]), at 10/07/2024 4:11 PM ASSESSMENT & PLAN [...] left hemiplegia and left hemianopia. Had a 10/ headache yesterday with nausea. Repeat imaging stable. [...] PRN #GI - >dysphagia - follow up BAG MACHINE ADJUSTER recs - NPO diet (Give Meds) - [...] Other - Activity: as tolerated - Dispo: Jail facility - Last BM: Last Bowel Movement: 11/11/24 - code status: Attempt Cardiopulmonary Resuscitation - [...] Please page Vascular Neurology with any questions, #[phone] Anitra Ruiz, Department of Neurology [place] [phone] Associated attestation - Karli Morales MD - [...] Dheeraj Moreira - 10/07/2024 3:56 PM EST Almond Pan Finisher Encounter Note Patient Name: Lucero Bruno : [id number] MR#: [id number] Admit Date: 09/16/2024 10:06 AM Hospital Day 21 days Narrative:Follow-up visit for continued assessment and support. Assessment:Family coping positively with stresses of illness/hospitalization at this time. I met with patient boy friend and he was happy that she is getting better day and he was happy about all progress. Intervention and Outcome:Provided emotional, spiritual support and listening presence. Almond Pan Finisher services accepted. Conversation to build trusting relationship. Provided pastoral presence. Provided spiritual guidance. Follow-up: yes Time in Direct Care:04 Mins Dheeraj Moreira 10/07/2024 * Areli Hathaway SLP - 10/07/2024 1:29 PM EST Speech Therapy Note Patient Profile: Lucero Bruno is a 74 y.o. female with PMHx of A-fib, CHRISTOPHER, HLD, and prior IPH (04/2024) who presented [place] [facility] [place] for placement of Watchman with cardiology. She developed headaches and nausea post-operatively and was found to have a large R ctpqxrpr-ojepmmt-eunstxhqk IPH, now s/p craniotomy. Patient was intubated from 09/16-09/21 with extubation complicated by stridor requiring re-intubation from 09/21-09/26 (11 days total). BAG MACHINE ADJUSTER has been following since 09/27 for communication [...] X Bolus Presentation(s): Tested Comments Thin liquids [place] thick liquids Honey thick liquids Pureed solids Dysphagia soft Mechanical soft Regular solids Pills Other X [place] ice Oral Preparatory Phase Mastication: N/A Oral [...] stimulation. Please provide single ice chips between BAG MACHINE ADJUSTER sessions when she is alert and accepting. [...] instrumental swallow evaluation. NEW Plan: Therapy Frequency (BAG MACHINE ADJUSTER Eval): 3-5 times/wk Patient is in agreement with the plan of care. Total Minutes (Speech Language Pathology): 40 Areli Hathaway MS, [facility]-BAG MACHINE ADJUSTER Speech-Language Pathologist Inpatient Rehabilitation Pager # [phone] * Enedina Solomon RD - 10/07/2024 10:34 AM EST Nutrition [...] Follow-up, Tube Feeding Nutrition Recommendations: NPO per BAG MACHINE ADJUSTER 10/06. Gtube placed 10/04. Suggest transition to [...] Catheter 10/06/24 1712 10/06/24 1712 -- 1 Oxygen Therapy / Airway Device: [...] of this encounter: 79.4 kg (175 lb). [place] Body Weight (IBW) (kg): 45.45 Wt Readings [...] feeds. Order pended and team paged. 10/06: BAG MACHINE ADJUSTER continues to recommend NPO, per note 10/05. [...] VHP rather than Nutren 1.5, team aware. BAG MACHINE ADJUSTER continues to recommend NPO per 09/30 note. LBM 09/29, optimize regimen. Per EMR, pt with 4% wt loss in <1 week (196lbs on 09/24 to 188lbs on 09/28) which is clinically significant. Unable to complete full NFPE at this time. Planned for upcoming PEG placement. 09/29: TF Dc'd 09/28 @ 1835hr. BAG MACHINE ADJUSTER continues to recommend NPO, need for alternate [...] maxillary line): Not assessed Lean Muscle Loss Jewish region (temporalis muscle): None present Clavicle bone [...] Karli Morales MD Primary Provider: Leila Manjarrez [phone] Hospital Day: Hospital Day: Patient ID 74 [...] Events: - Void trial yesterday successful - DANILO VSS - This morning denies any acute [...] NG/GT:1520] Out: 2215 [Urine:2215] Labs Recent Labs 10/07/242 10/06/24 0033 10/05/24 0008 10/04/24 0029 10/03/24 [...] Procedure Component Value - Date/Time Blood culture [[id number]] Collected: 09/26/24 1442 Lab Status: Final result Specimen: Blood, Venous Updated: 10/01/24 1602 Blood Culture No growth at 120 hours Blood culture [[id number]] Collected: 09/26/24 1453 Lab Status: Final result Specimen: Blood, Venous Updated: 10/01/24 1602 Blood Culture No growth at 120 hours Imaging/EKG Results for orders placed or performed during the hospital encounter of 09/16/24 CT Head wo Contrast (Generic) (Exam End: 09/16/2024 5:26 PM) Result Value WORKSTATION ID [id number] Impression Interval expansion of now large right-sided [...] who have questions please contact the health customer care agent that requested your imaging first. Electronically signed by: Lana Palifka, [facility] ([phone]), at 09/16/2024 6:[address] Head wo Contrast (Generic) (Exam End: 09/16/2024 11:21 PM) Result Value WORKSTATION ID [id number] Impression CT head: 1. Interval craniotomy with [...] who have questions please contact the health customer care agent that requested your imaging first. Electronically signed by: Armando Pan MD, [facility] ([phone]), at 09/17/2024 1:[address] Venogram Brain (Exam End: 09/16/2024 11:21 PM) Result Value WORKSTATION ID [id number] Impression CT head: 1. Interval craniotomy with [...] who have questions please contact the health customer care agent that requested your imaging first. Electronically signed by: Armando Pan MD, [facility] ([phone]), at 09/17/2024 1:42 AM XR Chest One View (Exam End: 09/16/2024 11:00 PM) Result Value WORKSTATION ID [id number] Impression Satisfactorily positioned enteric and endotracheal tubes. Left lower lobe atelectasis versus pneumonia. Thank you for letting us participate in the care of this patient. If you are a health care provider and have any questions regarding this report, please contact the number below. For patients who have questions please contact the health customer care agent that requested your imaging first. Electronically signed by: Pamela Beard MD, [facility] ([phone]), at 09/17/2024 12:09 AM XR Abdomen 1 view (Generic) (Exam End: 09/16/2024 11:00 PM) Result Value WORKSTATION ID [id number] Impression Satisfactorily positioned enteric and endotracheal tubes. Left lower lobe atelectasis versus pneumonia. Thank you for letting us participate in the care of this patient. If you are a health care provider and have any questions regarding this report, please contact the number below. For patients who have questions please contact the health customer care agent that requested your imaging first. Electronically signed by: Pamela Beard MD, [facility] ([phone]), at 09/17/2024 12:[address] Head wo Contrast (Generic) (Exam End: 09/17/2024 4:51 AM) Result Value WORKSTATION ID [id number] Impression Increased size and density of dominant [...] who have questions please contact the health customer care agent that requested your imaging first. Electronically signed by: Elvin Bolden DO, [facility] ([phone]), at 09/17/2024 8:38 AM XR Chest One View (Exam End: 09/17/2024 2:13 PM) Result Value WORKSTATION ID [id number] Impression 1. No focal opacity in lung [...] who have questions please contact the health customer care agent that requested your imaging first. Electronically signed by: Zoey Zabala MD, [facility] ([phone]), at 09/17/2024 2:43 PM XR Chest One View (Exam End: 09/18/2024 8:43 AM) Result Value WORKSTATION ID [id number] Impression Tubes and lines as described. Blunting of the left costophrenic angle suggests tiny layering left effusion with associated left basilar consolidation/atelectasis Thank you for letting us participate in the care of this patient. If you are a health care provider and have any questions regarding this report, please contact the number below. For patients who have questions please contact the health customer care agent that requested your imaging first. Abdomen 1 view (Generic) (Exam End: 09/18/2024 12:31 PM) Result Value WORKSTATION ID [id number] Impression Dobbhoff tube tip along the greater curve of the stomach. Thank you for letting us participate in the care of this patient. If you are a health care provider and have any questions regarding this report, please contact the number below. For patients who have questions please contact the health customer care agent that requested your imaging first. Electronically signed by: Arie Bhat [facility] ([phone]), at 09/18/2024 1:05 PM MRI Brain wwo Contrast (Generic) (Exam End: 09/19/2024 5:43 PM) Result Value WORKSTATION ID [id number] Impression Unchanged size of large right cerebral hemisphere ICH status post partial evacuation. Numerous small foci of decreased acute infarction both along and separate from the site of hemorrhage. These foci are present in both cerebral hemispheres and have a pattern most consistent with embolic infarction. No evidence of NEON MOLDER malignancy Thank you for letting us participate in the care of this patient. If you are a health care provider and have any questions regarding this report, please contact the number below. For patients who have questions please contact the health customer care agent that requested your imaging first. Electronically signed by: Rios Swartz MD, [facility] ([phone]), at 09/20/2024 8:[address] Head wo Contrast (Generic) (Exam End: 09/21/2024 3:50 AM) Result Value WORKSTATION ID [id number] Impression Stable hemorrhage right temporal, parietal, right [...] who have questions please contact the health customer care agent that requested your imaging first. Electronically signed by: Armando Pan MD, [facility] ([phone]), at 09/21/2024 4:55 AM XR Abdomen 1 view (Generic) (Exam End: 09/21/2024 2:01 PM) Result Value WORKSTATION ID [id number] Impression Dobbhoff tube and enteric tube sidehole [...] who have questions please contact the health customer care agent that requested your imaging first. Electronically signed by: Shraddha Cox MD, [facility] ([phone]), at 09/21/2024 3:40 PM XR Chest One View (Exam End: 09/21/2024 2:01 PM) Result Value WORKSTATION ID [id number] Impression ET tube with tip projecting approximately [...] who have questions please contact the health customer care agent that requested your imaging first. Electronically signed by: Octavio Scott MD, [facility] ([phone]), at 09/21/2024 5:[address] Head wo Contrast (Generic) (Exam End: 09/22/2024 4:02 AM) Result Value WORKSTATION ID [id number] Impression Stable head CT status post removal of subcutaneous drain. No new or enlarging hemorrhage. Stable pattern of mass effect Thank you for letting us participate in the care of this patient. If you are a health care provider and have any questions regarding this report, please contact the number below. For patients who have questions please contact the health customer care agent that requested your imaging first. Electronically signed by: Armando Pan MD, [facility] ([phone]), at 09/22/2024 4:[address] Angiogram Chest for Pulmonary Embolus w Contrast (Exam End: 09/26/2024 1:37 PM) Result Value WORKSTATION ID [id number] Impression 1. No pulmonary embolism. 2. Pulmonary [...] who have questions please contact the health customer care agent that requested your imaging first. Electronically signed by: Marvin Decker DO, [facility] ([phone]), at 09/26/2024 1:[address] Head wo Contrast (Generic) (Exam End: 09/26/2024 1:37 PM) Result Value WORKSTATION ID [id number] Impression 1. Stable right-sided parenchymal and subdural [...] who have questions please contact the health customer care agent that requested your imaging first. Electronically signed by: Smiley Cordova MD, [facility] ([phone]), at 09/26/2024 2:[address] Abdomen & Pelvis w Contrast (Exam End: 09/26/2024 1:37 PM) Result Value WORKSTATION ID [id number] Impression 1. No pulmonary embolism. 2. Pulmonary [...] who have questions please contact the health customer care agent that requested your imaging first. Electronically signed by: Marvin Decker DO [facility] ([phone]), at 09/26/2024 1:54 PM XR Chest One View (Exam End: 09/28/2024 4:06 AM) Result Value WORKSTATION ID [id number] Impression 1. Limited examination. 2. Interval removal [...] who have questions please contact the health customer care agent that requested your imaging first. Electronically signed by: Marvin Decker DO [facility] ([phone]), at 09/28/2024 4:12 AM XR Chest One View (Exam End: 09/28/2024 7:58 PM) Result Value WORKSTATION ID [id number] Impression 1. Slightly increased opacity in the [...] who have questions please contact the health customer care agent that requested your imaging first. Electronically signed by: Sammy Story MD, [facility] ([phone]), at 09/28/2024 8:09 PM XR Chest One View (Exam End: 09/29/2024 1:13 PM) Result Value WORKSTATION ID [id number] Impression 1. Limited examination. 2. Stable position [...] who have questions please contact the health customer care agent that requested your imaging first. Electronically signed by: Marvin Decker DO, [facility] ([phone]), at 09/30/2024 12:[address] Head wo Contrast (Generic) (Exam End: 10/04/2024 1:40 AM) Result Value WORKSTATION ID [id number] Impression 1. Overall interval improvement of the [...] who have questions please contact the health customer care agent that requested your imaging first. Electronically signed by: Armando Pan MD, [facility] ([phone]), at 10/04/2024 2:12 AM MRI Brain wwo Contrast (Generic) (Exam End: 10/04/2024 10:30 PM) Result Value WORKSTATION ID [id number] Impression 1. Fluid collections in the right [...] who have questions please contact the health customer care agent that requested your imaging first. Electronically signed by: Armando Pan MD, [facility] ([phone]), at 10/05/2024 12:31 AM XR Chest One View (Exam End: 10/06/2024 10:59 AM) Result Value WORKSTATION ID [id number] Impression Improved but persistent retrocardiac patchy opacity [...] who have questions please contact the health customer care agent that requested your imaging first. Electronically signed by: MICHELLE ARSHAD MD, [facility] ([phone]), at 10/06/2024 3:00 PM ASSESSMENT & PLAN [...] PRN #GI - >dysphagia - follow up BAG MACHINE ADJUSTER recs - NPO diet (Give Meds) - [...] Other - Activity: as tolerated - Dispo: Jail facility - Last BM: Last Bowel Movement: [...] Please page Vascular Neurology with any questions, #[phone] Anitra Ruiz DO Department of Neurology [place] [phone] Associated attestation - Karli Morales MD - [...] Guzman MD - 10/06/2024 5:27 PM EST [facility] NEUROSURGERY PROGRESS NOTE ID: Lucero Bruno 74 [...] 1.5 (standard, energy-dense) (1.5 kcal/mL) Stopped (10/06/24 2115) PRN: acetaminophen, 975 mg, Q6H PRN docusate [...] for drainage. Dressing dry. LABS: Recent Labs 10/06/243 10/05/248 10/04/24 002 WBC 16.59* 13.56* 14.67* HGB 10.8* 10.8* 10.4* PLATELET 237 241 303 Recent Labs 10/06/243 10/05/248 10/04/24 0029 NA 138 139 142 K [...] 09/16/2024 5:26 PM) Result Value WORKSTATION ID [id number] Impression Interval expansion of now large right-sided [...] who have questions please contact the health customer care agent that requested your imaging first. Electronically signed by: Lana Reinoso [facility] ([phone]), at 09/16/2024 6:[address] Head wo Contrast (Generic) (Exam End: 09/16/2024 11:21 PM) Result Value WORKSTATION ID [id number] Impression CT head: 1. Interval craniotomy with [...] who have questions please contact the health customer care agent that requested your imaging first. Electronically signed by: Armando Pan MD, [facility] ([phone]), at 09/17/2024 1:[address] Venogram Brain (Exam End: 09/16/2024 11:21 PM) Result Value WORKSTATION ID [id number] Impression CT head: 1. Interval craniotomy with [...] who have questions please contact the health customer care agent that requested your imaging first. Electronically signed by: Armando Pan MD, [facility] ([phone]), at 09/17/2024 1:42 AM XR Chest One View (Exam End: 09/16/2024 11:00 PM) Result Value WORKSTATION ID [id number] Impression Satisfactorily positioned enteric and endotracheal tubes. Left lower lobe atelectasis versus pneumonia. Thank you for letting us participate in the care of this patient. If you are a health care provider and have any questions regarding this report, please contact the number below. For patients who have questions please contact the health customer care agent that requested your imaging first. Electronically signed by: Pamela Beard MD, [facility] ([phone]), at 09/17/2024 12:09 AM XR Abdomen 1 view (Generic) (Exam End: 09/16/2024 11:00 PM) Result Value WORKSTATION ID [id number] Impression Satisfactorily positioned enteric and endotracheal tubes. Left lower lobe atelectasis versus pneumonia. Thank you for letting us participate in the care of this patient. If you are a health care provider and have any questions regarding this report, please contact the number below. For patients who have questions please contact the health customer care agent that requested your imaging first. Electronically signed by: Pamela Beard MD, [facility] ([phone]), at 09/17/2024 12:[address] Head wo Contrast (Generic) (Exam End: 09/17/2024 4:51 AM) Result Value WORKSTATION ID [id number] Impression Increased size and density of dominant [...] who have questions please contact the health customer care agent that requested your imaging first. Electronically signed by: Elvin Bolden DO, [facility] ([phone]), at 09/17/2024 8:38 AM XR Chest One View (Exam End: 09/17/2024 2:13 PM) Result Value WORKSTATION ID [id number] Impression 1. No focal opacity in lung [...] who have questions please contact the health customer care agent that requested your imaging first. Electronically signed by: Zoey Zabala MD, [facility] ([phone]), at 09/17/2024 2:43 PM XR Chest One View (Exam End: 09/18/2024 8:43 AM) Result Value WORKSTATION ID [id number] Impression Tubes and lines as described. Blunting of the left costophrenic angle suggests tiny layering left effusion with associated left basilar consolidation/atelectasis Thank you for letting us participate in the care of this patient. If you are a health care provider and have any questions regarding this report, please contact the number below. For patients who have questions please contact the health customer care agent that requested your imaging first. Electronically signed by: Arie Bhat, [facility] ([phone]), at 09/18/2024 9:29 AM XR Abdomen 1 view (Generic) (Exam End: 09/18/2024 12:31 PM) Result Value WORKSTATION ID [id number] Impression Dobbhoff tube tip along the greater curve of the stomach. Thank you for letting us participate in the care of this patient. If you are a health care provider and have any questions regarding this report, please contact the number below. For patients who have questions please contact the health customer care agent that requested your imaging first. Electronically signed by: Arie Bhat [facility] ([phone]), at 09/18/2024 1:05 PM MRI Brain wwo Contrast (Generic) (Exam End: 09/19/2024 5:43 PM) Result Value WORKSTATION ID [id number] Impression Unchanged size of large right cerebral hemisphere ICH status post partial evacuation. Numerous small foci of decreased acute infarction both along and separate from the site of hemorrhage. These foci are present in both cerebral hemispheres and have a pattern most consistent with embolic infarction. No evidence of NEON MOLDER malignancy Thank you for letting us participate in the care of this patient. If you are a health care provider and have any questions regarding this report, please contact the number below. For patients who have questions please contact the health customer care agent that requested your imaging first. Electronically signed by: Rios Swartz MD, [facility] ([phone]), at 09/20/2024 8:[address] Head wo Contrast (Generic) (Exam End: 09/21/2024 3:50 AM) Result Value WORKSTATION ID [id number] Impression Stable hemorrhage right temporal, parietal, right [...] who have questions please contact the health customer care agent that requested your imaging first. Electronically signed by: Armando Pan MD, [facility] ([phone]), at 09/21/2024 4:55 AM XR Abdomen 1 view (Generic) (Exam End: 09/21/2024 2:01 PM) Result Value WORKSTATION ID [id number] Impression Dobbhoff tube and enteric tube sidehole [...] who have questions please contact the health customer care agent that requested your imaging first. Electronically signed by: Shraddha Cox MD, [facility] ([phone]), at 09/21/2024 3:40 PM XR Chest One View (Exam End: 09/21/2024 2:01 PM) Result Value WORKSTATION ID [id number] Impression ET tube with tip projecting approximately [...] who have questions please contact the health customer care agent that requested your imaging first. Electronically signed by: Octavio Scott MD, [facility] ([phone]), at 09/21/2024 5:[address] Head wo Contrast (Generic) (Exam End: 09/22/2024 4:02 AM) Result Value WORKSTATION ID [id number] Impression Stable head CT status post removal of subcutaneous drain. No new or enlarging hemorrhage. Stable pattern of mass effect Thank you for letting us participate in the care of this patient. If you are a health care provider and have any questions regarding this report, please contact the number below. For patients who have questions please contact the health customer care agent that requested your imaging first. Electronically signed by: Armando Pan MD, [facility] ([phone]), at 09/22/2024 4:[address] Angiogram Chest for Pulmonary Embolus w Contrast (Exam End: 09/26/2024 1:37 PM) Result Value WORKSTATION ID [id number] Impression 1. No pulmonary embolism. 2. Pulmonary [...] who have questions please contact the health customer care agent that requested your imaging first. Electronically signed by: Marvin Decker DO, [facility] ([phone]), at 09/26/2024 1:[address] Head wo Contrast (Generic) (Exam End: 09/26/2024 1:37 PM) Result Value WORKSTATION ID [id number] Impression 1. Stable right-sided parenchymal and subdural [...] who have questions please contact the health customer care agent that requested your imaging first. Electronically signed by: Smiley Cordova MD, [facility] ([phone]), at 09/26/2024 2:[address] Abdomen & Pelvis w Contrast (Exam End: 09/26/2024 1:37 PM) Result Value WORKSTATION ID [id number] Impression 1. No pulmonary embolism. 2. Pulmonary [...] who have questions please contact the health customer care agent that requested your imaging first. Electronically signed by: Marvin Decker DO, [facility] ([phone]), at 09/26/2024 1:54 PM XR Chest One View (Exam End: 09/28/2024 4:06 AM) Result Value WORKSTATION ID [id number] Impression 1. Limited examination. 2. Interval removal [...] who have questions please contact the health customer care agent that requested your imaging first. Electronically [facility][phone]), at 09/28/2024 4:12 AM XR Chest One View (Exam End: 09/28/2024 7:58 PM) Result Value WORKSTATION ID [id number] Impression 1. Slightly increased opacity in the [...] who have questions please contact the health customer care agent that requested your imaging first. Electronically signed by: Sammy Story MD, [facility] ([phone]), at 09/28/2024 8:09 PM XR Chest One View (Exam End: 09/29/2024 1:13 PM) Result Value WORKSTATION ID [id number] Impression 1. Limited examination. 2. Stable position [...] who have questions please contact the health customer care agent that requested your imaging first. Electronically signed by: [facility] ([phone]), at 09/30/2024 12:[address] Head wo Contrast (Generic) (Exam End: 10/04/2024 1:40 AM) Result Value WORKSTATION ID [id number] Impression 1. Overall interval improvement of the [...] who have questions please contact the health customer care agent that requested your imaging first. Electronically signed by: Armando Pan MD, [facility] ([phone]), at 10/04/2024 2:12 AM MRI Brain wwo Contrast (Generic) (Exam End: 10/04/2024 10:30 PM) Result Value WORKSTATION ID [id number] Impression 1. Fluid collections in the right [...] who have questions please contact the health customer care agent that requested your imaging first. Electronically signed by: Armando Pan MD, [facility] ([phone]), at 10/05/2024 12:31 AM XR Chest One View (Exam End: 10/06/2024 10:59 AM) Result Value WORKSTATION ID [id number] Impression Improved but persistent retrocardiac patchy opacity [...] who have questions please contact the health customer care agent that requested your imaging first. Electronically signed by: MICHELLE ARSHAD MD, [facility] ([phone]), at 10/06/2024 3:00 PM Assessment: 74 y.o. female with PMHx notable for Afib (taking ASA, previously on apixaban-stopped taking after IPH in April 2024), CHRISTOPHER, HLD, BMI of 36, prior IPH 04/2024 who presented to hospital 09/16/24 for placement of Watchman with cardiology. She developed headaches and nausea post op and CT scan noted large R uqsxumlg-greepcx-cvopcdmig IPH. Now s/p R craniotomy for IPH [...] clinic with JESSI For questions please call [employer] pager [phone] Rob Guzman MD Clinical Documentation Improvement: Active [...] be 2/2 to CAA who [place] [facility] [place] subsequently developing a large [...] in all aspects. 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 Patient reports she enjoys her 1/2 acre of flower beds. Falls: None Precautions/Special Considerations: at risk to fall, SBP 90-160, MAP>65 Lines: PIV, tele, hill catheter, PEG Activity Orders: AAT Diet: NPO Mobility and Positioning Recommendations: [facility] Please encourage [...] the current findings, Anticipated Discharge Disposition (PT): residential facility when medically ready for hospital discharge. [...] plan as stated. Time IN / OUT: 4205-9898 Total Minutes, Physical Therapy: 22 Billing Code: TEF1 Kymberly Baptiste PT, DPT, NCS Pager: [phone] Physical Therapy Inpatient Rehabilitation Department * Diana Lucas OT - 10/06/2024 1:28 PM EST Occupational Therapy Treatment Note Treatment Number OT: 5 Patient Dx:Lucero Bruno is a 74 y.o. female admitted on 09/16/2024. 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 female with PMHx of A-fib, CHRISTOPHER, HLD, and prior IPH (04/2024) who presented [place] [facility] [place] for placement of Watchman with cardiology. She developed headaches and nausea post-operatively and was found to have a large R gvrwzjtz-dtwwvxy-mdyrffyoi IPH, now s/p craniotomy. Patient was intubated from 09/16-09/21 with extubation complicated by stridor requiring re-intubation from 09/21-09/26 (11 days total). BAG MACHINE ADJUSTER has been following since 09/27 for communication [...] X Bolus Presentation(s): Tested Comments Thin liquids [place] thick liquids Honey thick liquids Pureed solids [...] stimulation. Please provide single ice chips between BAG MACHINE ADJUSTER sessions when she is alert and accepting. [...] safe swallowing strategies. ONGOING Plan: Therapy Frequency (BAG MACHINE ADJUSTER Eval): 3-5 times/wk Patient is in agreement with the plan of care. 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 [place] Body Weight (IBW) (kg): 45.45 Wt Readings [...] intake and intake history / interview: 10/06: BAG MACHINE ADJUSTER continues to recommend NPO, per note 10/05. [...] VHP rather than Nutren 1.5, team aware. BAG MACHINE ADJUSTER continues to recommend NPO per 09/30 note. LBM 09/29, optimize regimen. Per EMR, pt with 4% wt loss in <1 week (196lbs on 09/24 to 188lbs on 09/28) which is clinically significant. Unable to complete full NFPE at this time. Planned for upcoming PEG placement. 09/29: TF Dc'd 09/28 @ 1835hr. BAG MACHINE ADJUSTER continues to recommend NPO, need for alternate [...] maxillary line): Not assessed Lean Muscle Loss Jewish region (temporalis muscle): None present Clavicle bone [...] Gissell Velazco MD Primary Provider: Leila Manjarrez [phone] Hospital Day: Hospital Day: 21 Patient ID [...] Labs 10/06/24 0033 10/05/24 0008 10/04/24 0029 10/03/245 10/02/24 0149 NA 138 139 142 146* [...] Procedure Component Value - Date/Time Blood culture [[id number]] Collected: 09/26/24 1442 Lab Status: Final result Specimen: Blood, Venous Updated: 10/01/24 1602 Blood Culture No growth at 120 hours Blood culture [[id number]] Collected: 09/26/24 1453 Lab Status: Final result Specimen: Blood, Venous Updated: 10/01/24 1602 Blood Culture No growth at 120 hours Imaging/EKG Results for orders placed or performed during the hospital encounter of 09/16/24 CT Head wo Contrast (Generic) (Exam End: 09/16/2024 5:26 PM) Result Value WORKSTATION ID [id number] Impression Interval expansion of now large right-sided [...] who have questions please contact the health customer care agent that requested your imaging first. Electronically signed by: Lana Reinoso [facility] ([phone]), at 09/16/2024 6:[address] Head wo Contrast (Generic) (Exam End: 09/16/2024 11:21 PM) Result Value WORKSTATION ID [id number] Impression CT head: 1. Interval craniotomy with [...] who have questions please contact the health customer care agent that requested your imaging first. Electronically signed by: Armando Pan MD, [facility] ([phone]), at 09/17/2024 1:[address] Venogram Brain (Exam End: 09/16/2024 11:21 PM) Result Value WORKSTATION ID [id number] Impression CT head: 1. Interval craniotomy with [...] who have questions please contact the health customer care agent that requested your imaging first. Electronically signed by: Armando Pan MD, [facility] ([phone]), at 09/17/2024 1:42 AM XR Chest One View (Exam End: 09/16/2024 11:00 PM) Result Value WORKSTATION ID [id number] Impression Satisfactorily positioned enteric and endotracheal tubes. Left lower lobe atelectasis versus pneumonia. Thank you for letting us participate in the care of this patient. If you are a health care provider and have any questions regarding this report, please contact the number below. For patients who have questions please contact the health customer care agent that requested your imaging first. Electronically signed by: Pamela Beard MD, [facility] ([phone]), at 09/17/2024 12:09 AM XR Abdomen 1 view (Generic) (Exam End: 09/16/2024 11:00 PM) Result Value WORKSTATION ID [id number] Impression Satisfactorily positioned enteric and endotracheal tubes. Left lower lobe atelectasis versus pneumonia. Thank you for letting us participate in the care of this patient. If you are a health care provider and have any questions regarding this report, please contact the number below. For patients who have questions please contact the health customer care agent that requested your imaging first. Electronically signed by: Pamela Beard MD, [facility] ([phone]), at 09/17/2024 12:[address] Head wo Contrast (Generic) (Exam End: 09/17/2024 4:51 AM) Result Value WORKSTATION ID [id number] Impression Increased size and density of dominant [...] who have questions please contact the health customer care agent that requested your imaging first. Electronically signed by: Elvin Bolden DO, [facility] ([phone]), at 09/17/2024 8:38 AM XR Chest One View (Exam End: 09/17/2024 2:13 PM) Result Value WORKSTATION ID [id number] Impression 1. No focal opacity in lung [...] who have questions please contact the health customer care agent that requested your imaging first. Electronically signed by: Zoey Zabala MD, [facility] ([phone]), at 09/17/2024 2:43 PM XR Chest One View (Exam End: 09/18/2024 8:43 AM) Result Value WORKSTATION ID [id number] Impression Tubes and lines as described. Blunting of the left costophrenic angle suggests tiny layering left effusion with associated left basilar consolidation/atelectasis Thank you for letting us participate in the care of this patient. If you are a health care provider and have any questions regarding this report, please contact the number below. For patients who have questions please contact the health customer care agent that requested your imaging first. Electronically signed by: Arie Bhat [facility] ([phone]), at 09/18/2024 9:29 AM XR Abdomen 1 view (Generic) (Exam End: 09/18/2024 12:31 PM) Result Value WORKSTATION ID [id number] Impression Dobbhoff tube tip along the greater curve of the stomach. Thank you for letting us participate in the care of this patient. If you are a health care provider and have any questions regarding this report, please contact the number below. For patients who have questions please contact the health customer care agent that requested your imaging first. Electronically signed by: Arie Bhat [facility] ([phone]), at 09/18/2024 1:05 PM MRI Brain wwo Contrast (Generic) (Exam End: 09/19/2024 5:43 PM) Result Value WORKSTATION ID [id number] Impression Unchanged size of large right cerebral hemisphere ICH status post partial evacuation. Numerous small foci of decreased acute infarction both along and separate from the site of hemorrhage. These foci are present in both cerebral hemispheres and have a pattern most consistent with embolic infarction. No evidence of NEON MOLDER malignancy Thank you for letting us participate in the care of this patient. If you are a health care provider and have any questions regarding this report, please contact the number below. For patients who have questions please contact the health customer care agent that requested your imaging first. Electronically signed by: Rios Swartz MD, [facility] ([phone]), at 09/20/2024 8:[address] Head wo Contrast (Generic) (Exam End: 09/21/2024 3:50 AM) Result Value WORKSTATION ID [id number] Impression Stable hemorrhage right temporal, parietal, right [...] who have questions please contact the health customer care agent that requested your imaging first. Electronically signed by: Armando Pan MD, [facility] ([phone]), at 09/21/2024 4:55 AM XR Abdomen 1 view (Generic) (Exam End: 09/21/2024 2:01 PM) Result Value WORKSTATION ID [id number] Impression Dobbhoff tube and enteric tube sidehole [...] who have questions please contact the health customer care agent that requested your imaging first. Electronically signed by: Shraddha Cox MD, [facility] ([phone]), at 09/21/2024 3:40 PM XR Chest One View (Exam End: 09/21/2024 2:01 PM) Result Value WORKSTATION ID [id number] Impression ET tube with tip projecting approximately [...] who have questions please contact the health customer care agent that requested your imaging first. Electronically signed by: Octavio Scott MD, [facility] ([phone]), at 09/21/2024 5:[address] Head wo Contrast (Generic) (Exam End: 09/22/2024 4:02 AM) Result Value WORKSTATION ID [id number] Impression Stable head CT status post removal of subcutaneous drain. No new or enlarging hemorrhage. Stable pattern of mass effect Thank you for letting us participate in the care of this patient. If you are a health care provider and have any questions regarding this report, please contact the number below. For patients who have questions please contact the health customer care agent that requested your imaging first. Electronically signed by: Armando Pan MD, [facility] ([phone]), at 09/22/2024 4:[address] Angiogram Chest for Pulmonary Embolus w Contrast (Exam End: 09/26/2024 1:37 PM) Result Value WORKSTATION ID [id number] Impression 1. No pulmonary embolism. 2. Pulmonary [...] who have questions please contact the health customer care agent that requested your imaging first. Electronically signed by: Marvin Decker DO, [facility] ([phone]), at 09/26/2024 1:[address] Head wo Contrast (Generic) (Exam End: 09/26/2024 1:37 PM) Result Value WORKSTATION ID [id number] Impression 1. Stable right-sided parenchymal and subdural [...] who have questions please contact the health customer care agent that requested your imaging first. Electronically signed by: Smiley Cordova MD, [facility] ([phone]), at 09/26/2024 2:[address] Abdomen & Pelvis w Contrast (Exam End: 09/26/2024 1:37 PM) Result Value WORKSTATION ID [id number] Impression 1. No pulmonary embolism. 2. Pulmonary [...] who have questions please contact the health customer care agent that requested your imaging first. Electronically signed by: Marvin Decker DO, [facility] ([phone]), at 09/26/2024 1:54 PM XR Chest One View (Exam End: 09/28/2024 4:06 AM) Result Value WORKSTATION ID [id number] Impression 1. Limited examination. 2. Interval removal [...] who have questions please contact the health customer care agent that requested your imaging first. Electronically signed by: Marvin Decker DO, [facility] ([phone]), at 09/28/2024 4:12 AM XR Chest One View (Exam End: 09/28/2024 7:58 PM) Result Value WORKSTATION ID [id number] Impression 1. Slightly increased opacity in the [...] who have questions please contact the health customer care agent that requested your imaging first. Electronically signed by: Sammy Story MD, [facility] ([phone]), at 09/28/2024 8:09 PM XR Chest One View (Exam End: 09/29/2024 1:13 PM) Result Value WORKSTATION ID [id number] Impression 1. Limited examination. 2. Stable position [...] who have questions please contact the health customer care agent that requested your imaging first. Electronically signed by: Marvin Decker DO, [facility] ([phone]), at 09/30/2024 12:[address] Head wo Contrast (Generic) (Exam End: 10/04/2024 1:40 AM) Result Value WORKSTATION ID [id number] Impression 1. Overall interval improvement of the [...] who have questions please contact the health customer care agent that requested your imaging first. Electronically signed by: Armando Pan MD, [facility] ([phone]), at 10/04/2024 2:12 AM MRI Brain wwo Contrast (Generic) (Exam End: 10/04/2024 10:30 PM) Result Value WORKSTATION ID [id number] Impression 1. Fluid collections in the right [...] who have questions please contact the health customer care agent that requested your imaging first. Electronically signed by: Armando Pan MD, [facility] ([phone]), at 10/05/2024 12:31 AM ASSESSMENT & PLAN [...] PRN #GI - >dysphagia - follow up BAG MACHINE ADJUSTER recs - NPO diet (Give Meds) - [...] Other - Activity: as tolerated - Dispo: Jail facility - Last BM: Last Bowel Movement: [...] Please page Vascular Neurology with any questions, #[phone] Anitra Ruiz, Department of Neurology [place] [phone] Associated attestation - Karli Morales MD - [...] and prior IPH (04/2024) who [place] [facility] [place] for placement of Watchman with cardiology. She developed headaches and nausea post-operatively and was found to have a large R [id number]-[id number]-kutcrkpup IPH, now s/p craniotomy. Patient was intubated from 09/16-09/21 with extubation complicated by stridor requiring re-intubation from 09/21-09/26 (11 days total). BAG MACHINE ADJUSTER has been following since 09/27 for communication [...] X Bolus Presentation(s): Tested Comments Thin liquids Malmo thick liquids Honey thick liquids Pureed solids Dysphagia soft Mechanical soft Regular solids Pills Other X Ringgold ice Oral Preparatory Phase Mastication: N/A Oral [...] stimulation. Please provide single ice chips between BAG MACHINE ADJUSTER sessions when she is alert and accepting. [...] safe swallowing strategies. ONGOING Plan: Therapy Frequency (BAG MACHINE ADJUSTER Eval): 3-5 times/wk Patient is in agreement with the plan of care. Total Minutes (Speech Language Pathology): 45 Areli Hathaway MS, CCC-BAG MACHINE ADJUSTER Speech-Language Pathologist Inpatient Rehabilitation Pager # [phone] * Roberta Damon - 10/05/2024 3:10 PM EST [facility] [employer] Encounter Note Patient Name: Lucero Bruno : [id number] MR#: [id number] Admit Date: 09/16/2024 10:06 AM Hospital Day 19 days Narrative: Visited patient on unit rounds to follow up on visits from Father Donnie Moreira and Feather Boner Hla Pugh. The patient was lying in bed. Assessment: [...] at discharge. I have met with the outside sales account representative son Don Pollard to: discuss discharge planning needs. provide the [facility] Office of Care Management letter from the [place] pertaining to rehab referrals. provide a letter describing our affiliations within the [facility] and educate about their right to choose where referrals are sent. provide the [facility] Star Quality Rating handout. review the different levels of rehab including SNF, swing, and acute. provide a list of facilities within their preferred geographic area. request that they provide at least three choices for referral. They have requested referrals to: [facility] [address] [place] [address] [address] [facility] [address] [place] [address] Note routed to a Advertising Dispatch Clerk who will communicate referrals to facilities and provide any required information. KKIO Nguyen, RN ACM-RN [facility] environmental solutions engineer * Dheeraj Moreira - 10/05/2024 9:28 AM EST [employer] Encounter Note Patient Name: Lucero Bruno : [id number] MR#: [id number] Admit Date: 09/16/2024 10:06 AM Hospital Day 19 days Narrative:Visited to introduce and assess acceptance of [facility] services. Assessment:Family coping positively with stresses of illness/hospitalization at this time. I met with patient family member in [facility] who is very dedicated and comes almost ever day and shared that Lucero is getting better slowly. Intervention and Outcome:Provided emotional, spiritual support and listening presence. [facility] services accepted. Conversation to build trusting relationship. Provided pastoral presence. Provided spiritual guidance. Follow-up: yes Time in Direct Care:08 Mins Dheeraj Moriera 10/05/2024 * Liane Holley PA - 10/05/2024 [...] right occipital hemorrhage, inability to swallow, requiring care home enteral access for nutrition. Catheter functioning well, tolerating tube feeds. Plan: -Gastropexy suture release ordered and to be scheduled in 7-10 days. -IR will sign-off at this time. Please page with further questions and concerns. RHONDA BarronC Interventional Radiology IR Team Pager [phone] * Rob Guzman MD - 10/05/2024 7:44 AM EST [facility] NEUROSURGERY PROGRESS NOTE ID: Lucero Bruno 74 [...] 09/16/2024 5:26 PM) Result Value WORKSTATION ID [id number] Impression Interval expansion of now large right-sided [...] who have questions please contact the health customer care agent that requested your imaging first. Electronically signed by: Lana Reinoso [facility] ([phone]), at 09/16/2024 6:[address] Head wo Contrast (Generic) (Exam End: 09/16/2024 11:21 PM) Result Value WORKSTATION ID [id number] Impression CT head: 1. Interval craniotomy with [...] who have questions please contact the health customer care agent that requested your imaging first. Electronically signed by: Armando Pan MD, [facility] ([phone]), at 09/17/2024 1:[address] Venogram Brain (Exam End: 09/16/2024 11:21 PM) Result Value WORKSTATION ID [id number] Impression CT head: 1. Interval craniotomy with [...] who have questions please contact the health customer care agent that requested your imaging first. Electronically signed by: Armando Pan MD, [facility] ([phone]), at 09/17/2024 1:42 AM XR Chest One View (Exam End: 09/16/2024 11:00 PM) Result Value WORKSTATION ID [id number] Impression Satisfactorily positioned enteric and endotracheal tubes. Left lower lobe atelectasis versus pneumonia. Thank you for letting us participate in the care of this patient. If you are a health care provider and have any questions regarding this report, please contact the number below. For patients who have questions please contact the health customer care agent that requested your imaging first. Electronically signed by: [facility] ([phone]), at 09/17/2024 12:09 AM XR Abdomen 1 view (Generic) (Exam End: 09/16/2024 11:00 PM) Result Value WORKSTATION ID [id number] Impression Satisfactorily positioned enteric and endotracheal tubes. Left lower lobe atelectasis versus pneumonia. Thank you for letting us participate in the care of this patient. If you are a health care provider and have any questions regarding this report, please contact the number below. For patients who have questions please contact the health customer care agent that requested your imaging first. Electronically signed by: Pamela Beard MD, [facility] ([phone]), at 09/17/2024 12:[address] Head wo Contrast (Generic) (Exam End: 09/17/2024 4:51 AM) Result Value WORKSTATION ID [id number] Impression Increased size and density of dominant [...] who have questions please contact the health customer care agent that requested your imaging first. Electronically signed by: Elvin Bolden DO, [facility] ([phone]), at 09/17/2024 8:38 AM XR Chest One View (Exam End: 09/17/2024 2:13 PM) Result Value WORKSTATION ID [id number] Impression 1. No focal opacity in lung [...] who have questions please contact the health customer care agent that requested your imaging first. Electronically signed by: Zoey Zabala MD, [facility] ([phone]), at 09/17/2024 2:43 PM XR Chest One View (Exam End: 09/18/2024 8:43 AM) Result Value WORKSTATION ID [id number] Impression Tubes and lines as described. Blunting of the left costophrenic angle suggests tiny layering left effusion with associated left basilar consolidation/atelectasis Thank you for letting us participate in the care of this patient. If you are a health care provider and have any questions regarding this report, please contact the number below. For patients who have questions please contact the health customer care agent that requested your imaging first. Abdomen 1 view (Generic) (Exam End: 09/18/2024 12:31 PM) Result Value WORKSTATION ID [id number] Impression Dobbhoff tube tip along the greater curve of the stomach. Thank you for letting us participate in the care of this patient. If you are a health care provider and have any questions regarding this report, please contact the number below. For patients who have questions please contact the health customer care agent that requested your imaging first. Brain wwo Contrast (Generic) (Exam End: 09/19/2024 5:43 PM) Result Value WORKSTATION ID [id number] Impression Unchanged size of large right cerebral hemisphere ICH status post partial evacuation. Numerous small foci of decreased acute infarction both along and separate from the site of hemorrhage. These foci are present in both cerebral hemispheres and have a pattern most consistent with embolic infarction. No evidence of NEON MOLDER malignancy Thank you for letting us participate in the care of this patient. If you are a health care provider and have any questions regarding this report, please contact the number below. For patients who have questions please contact the health customer care agent that requested your imaging first. Electronically signed by: Rios Swartz MD, [facility] ([phone]), at 09/20/2024 8:[address] Head wo Contrast (Generic) (Exam End: 09/21/2024 3:50 AM) Result Value WORKSTATION ID [id number] Impression Stable hemorrhage right temporal, parietal, right [...] who have questions please contact the health customer care agent that requested your imaging first. Electronically signed by: Armando Pan MD, [facility] ([phone]), at 09/21/2024 4:55 AM XR Abdomen 1 view (Generic) (Exam End: 09/21/2024 2:01 PM) Result Value WORKSTATION ID [id number] Impression Dobbhoff tube and enteric tube sidehole [...] who have questions please contact the health customer care agent that requested your imaging first. Electronically signed by: Shraddha Cox MD, [facility] ([phone]), at 09/21/2024 3:40 PM XR Chest One View (Exam End: 09/21/2024 2:01 PM) Result Value WORKSTATION ID [id number] Impression ET tube with tip projecting approximately [...] who have questions please contact the health customer care agent that requested your imaging first. Electronically signed by: Octavio Scott MD, [facility] ([phone]), at 09/21/2024 5:[address] Head wo Contrast (Generic) (Exam End: 09/22/2024 4:02 AM) Result Value WORKSTATION ID [id number] Impression Stable head CT status post removal of subcutaneous drain. No new or enlarging hemorrhage. Stable pattern of mass effect Thank you for letting us participate in the care of this patient. If you are a health care provider and have any questions regarding this report, please contact the number below. For patients who have questions please contact the health customer care agent that requested your imaging first. Electronically signed by: Armando Pan MD, [facility] ([phone]), at 09/22/2024 4:[address] Angiogram Chest for Pulmonary Embolus w Contrast (Exam End: 09/26/2024 1:37 PM) Result Value WORKSTATION ID [id number] Impression 1. No pulmonary embolism. 2. Pulmonary [...] who have questions please contact the health customer care agent that requested your imaging first. Electronically signed by: Marvin Decker DO, [facility] ([phone]), at 09/26/2024 1:[address] Head wo Contrast (Generic) (Exam End: 09/26/2024 1:37 PM) Result Value WORKSTATION ID [id number] Impression 1. Stable right-sided parenchymal and subdural [...] who have questions please contact the health customer care agent that requested your imaging first. Electronically signed by: Smiley Cordova MD, [facility] ([phone]), at 09/26/2024 2:[address] Abdomen & Pelvis w Contrast (Exam End: 09/26/2024 1:37 PM) Result Value WORKSTATION ID [id number] Impression 1. No pulmonary embolism. 2. Pulmonary [...] who have questions please contact the health customer care agent that requested your imaging first. Electronically signed by: Marvin Decker DO, [facility] ([phone]), at 09/26/2024 1:54 PM XR Chest One View (Exam End: 09/28/2024 4:06 AM) Result Value WORKSTATION ID [id number] Impression 1. Limited examination. 2. Interval removal [...] who have questions please contact the health customer care agent that requested your imaging first. Electronically signed by: Marvin Decker DO, [facility] ([phone]), at 09/28/2024 4:12 AM XR Chest One View (Exam End: 09/28/2024 7:58 PM) Result Value WORKSTATION ID [id number] Impression 1. Slightly increased opacity in the [...] who have questions please contact the health customer care agent that requested your imaging first. Electronically signed by: Sammy Story MD, [facility] ([phone]), at 09/28/2024 8:09 PM XR Chest One View (Exam End: 09/29/2024 1:13 PM) Result Value WORKSTATION ID [id number] Impression 1. Limited examination. 2. Stable position [...] who have questions please contact the health customer care agent that requested your imaging first. Electronically signed by: Marvin Decker DO, [facility] ([phone]), at 09/30/2024 12:[address] Head wo Contrast (Generic) (Exam End: 10/04/2024 1:40 AM) Result Value WORKSTATION ID [id number] Impression 1. Overall interval improvement of the [...] who have questions please contact the health customer care agent that requested your imaging first. Electronically signed by: Armando Pan MD, [facility] ([phone]), at 10/04/2024 2:12 AM MRI Brain wwo Contrast (Generic) (Exam End: 10/04/2024 10:30 PM) Result Value WORKSTATION ID [id number] Impression 1. Fluid collections in the right [...] who have questions please contact the health customer care agent that requested your imaging first. Electronically signed by: Armando Pan MD, [facility] ([phone]), at 10/05/2024 12:31 AM Assessment: 74 y.o. female with PMHx notable for Afib (taking ASA, previously on apixaban-stopped taking after IPH in April 2024), CHRISTOPHER, HLD, BMI of 36, prior IPH 04/2024 who presented to hospital 09/16/24 for placement of Watchman with cardiology. She developed headaches and nausea post op and CT scan noted large R qvziaqls-sjsbdxs-mhwyvgzmu IPH. Now s/p R craniotomy for IPH [...] JESSI For questions please call NSGY pager [phone] Rob Guzman MD Clinical Documentation Improvement: Active [...] Gissell Velazco MD Primary Provider: Leila Manjarrez [phone] Hospital Day: Hospital Day: 20 Patient ID [...] abscess versus meningocele versus hematoma - CHAVEZ CARRASOC - This morning denies any acute concerns [...] [Urine:2325; Stool:50; Blood:1] Labs Recent Labs 10/05/24 00010/04/24 0029 10/03/24 0405 10/02/249 10/01/24 0021 WBC 13.56* 14.67* 15.33* 19.16* 22.24* HGB 10.8* 10.4* 10.5* 10.1* 9.9* HCT 33.5* 32.8* 32.4* 31.1* 29.2* PLATELET 241 303 359* 399* 370* NEUTROABS 11.69* 12.52* 13.43* 16.45* 20.01* Recent Labs 10/05/24 0008 10/04/24 0029 10/03/24 0405 10/02/2414810/01/24 0021 NA 139 142 146* 146* 141 [...] PRN #GI - >dysphagia - follow up BAG MACHINE ADJUSTER recs - No diet orders on file [...] Other - Activity: as tolerated - Dispo: Jail facility - Last BM: Last Bowel Movement: 10/04/24 - code status: Attempt Cardiopulmonary Resuscitation - Inpatient Patient Lines/Drains/Airways Status Active Tubes/Lines/Drains Name Placement date Placement time Site Days PIV 10/04/24 170 22 gauge;1.75 in length cephalic vein (lateral side of arm), right 10/04/24 1704 -- 1 Enterostomy Tube 10/04/24 1236 gastrostomy tube with balloon midline 10/04/24 1236 -- 1 Urethral Catheter 10/02/24 0315 14 10/02/24 0315 -- 3 Fecal Incontinence Rn Angiography 10/02/24 1208 10/02/24 1208 -- 3 Please page Vascular Neurology with any questions, #[phone] Anitra Ruiz, Department of Neurology [place] [phone] Associated attestation - Karli Morales MD - [...] be 2/2 to CAA who [place] [facility] [place] subsequently developing a large [...] in all aspects. 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 Please encourage up to chair for meal times as able. Subjective: communicates via gestures, waves and gives thumbs up, nods head. Objective: Patient seen for physical therapy and demonstrated the following: Pain: Endorses pain in L shoulder, RN going to give her tylenol, L UE positioned on pillows. Vital Signs: HR=61 SpO2=98% 2 L O2 nc RJ=531/74 (93) Cognition/Vision: alert, follows commands in R [...] the current findings, Anticipated Discharge Disposition (PT): residential facility when medically ready for hospital discharge. [...] min A x5 mins. [facility] Family or [...] (TE-F x 2) Hortencia Matta PT Pager: [phone] Physical Therapy Inpatient Rehabilitation Department * Lucie Caldera, OT - 10/04/2024 9:50 AM EST Occupational Therapy Treatment Note Treatment Number OT: 4 Patient Dx: Lucero Bruno is a 74 y.o. female admitted on 09/16/2024. 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 Anticipated Discharge Disposition (OT): residential facility Equipment Recommendations: Equipment Needs Upon Discharge [...] OTR/L Occupational Therapy Rehabilitation Department Pager # [phone] * Crys Suarez MD - 10/04/2024 9:00 AM EST [facility] NEUROSURGERY PROGRESS NOTE ID: Lucero Bruno 74 [...] saturating mepilex with strikethrough LABS: Recent Labs 10/04/242810/03/2440410/02/24148 WBC 14.67* 15.33* 19.16* HGB 10.4* 10.5* 10.1* PLATELET 303 359* 399* Recent Labs 10/04/242810/03/2440410/02/24148 NA 142 146* 146* K 4.1 4.0 3.6 CL 106 108* 108* CO2 26 30 28 BUN 24* 22* 27* CREATININE 0.36* 0.35* 0.39* No results for input(s): PT, INR in the last 72 hours. IMAGING: Results for orders placed or performed during the hospital encounter of 09/16/24 CT Head wo Contrast (Generic) (Exam End: 09/16/2024 5:26 PM) Result Value WORKSTATION ID [id number] Impression Interval expansion of now large right-sided temporal occipital intraparenchymal hemorrhage with significant mass effect resulting in 1 cm leftward midline shift. Per chart review, this patient was seen by neurosurgery and taken emergently to the OR. I have personally reviewed the image(s) and the resident's interpretation and agree with the findings, Lana Kemar at 09/16/2024 6:01 PM Thank you for letting us participate in the care of this patient. If you are a health care provider and have any questions regarding this report, please contact the number below. For patients who have questions please contact the health customer care agent that requested your imaging first. Electronically signed by: Lana Reinoso [facility] ([phone]), at 09/16/2024 6:[address] Head wo Contrast (Generic) (Exam End: 09/16/2024 11:21 PM) Result Value WORKSTATION ID [id number] Impression CT head: 1. Interval craniotomy with [...] who have questions please contact the health customer care agent that requested your imaging first. Electronically signed by: Armando Pan MD, [facility] ([phone]), at 09/17/2024 1:[address] Venogram Brain (Exam End: 09/16/2024 11:21 PM) Result Value WORKSTATION ID [id number] Impression CT head: 1. Interval craniotomy with [...] who have questions please contact the health customer care agent that requested your imaging first. Electronically signed by: Armando Pan MD, [facility] ([phone]), at 09/17/2024 1:42 AM XR Chest One View (Exam End: 09/16/2024 11:00 PM) Result Value WORKSTATION ID [id number] Impression Satisfactorily positioned enteric and endotracheal tubes. Left lower lobe atelectasis versus pneumonia. Thank you for letting us participate in the care of this patient. If you are a health care provider and have any questions regarding this report, please contact the number below. For patients who have questions please contact the health customer care agent that requested your imaging first. Electronically signed by: Pamela Beard MD, [facility] ([phone]), at 09/17/2024 12:09 AM XR Abdomen 1 view (Generic) (Exam End: 09/16/2024 11:00 PM) Result Value WORKSTATION ID [id number] Impression Satisfactorily positioned enteric and endotracheal tubes. Left lower lobe atelectasis versus pneumonia. Thank you for letting us participate in the care of this patient. If you are a health care provider and have any questions regarding this report, please contact the number below. For patients who have questions please contact the health customer care agent that requested your imaging first. Electronically signed by: Pamela Beard MD, [facility] ([phone]), at 09/17/2024 12:[address] Head wo Contrast (Generic) (Exam End: 09/17/2024 4:51 AM) Result Value WORKSTATION ID [id number] Impression Increased size and density of dominant [...] who have questions please contact the health customer care agent that requested your imaging first. Electronically signed by: Elvin Bolden DO, [facility] ([phone]), at 09/17/2024 8:38 AM XR Chest One View (Exam End: 09/17/2024 2:13 PM) Result Value WORKSTATION ID [id number] Impression 1. No focal opacity in lung [...] who have questions please contact the health customer care agent that requested your imaging first. Electronically signed by: Zoey Zabala MD, [facility] ([phone]), at 09/17/2024 2:43 PM XR Chest One View (Exam End: 09/18/2024 8:43 AM) Result Value WORKSTATION ID [id number] Impression Tubes and lines as described. Blunting of the left costophrenic angle suggests tiny layering left effusion with associated left basilar consolidation/atelectasis Thank you for letting us participate in the care of this patient. If you are a health care provider and have any questions regarding this report, please contact the number below. For patients who have questions please contact the health customer care agent that requested your imaging first. Electronically signed by: Arie Bhat, [facility] ([phone]), at 09/18/2024 9:29 AM XR Abdomen 1 view (Generic) (Exam End: 09/18/2024 12:31 PM) Result Value WORKSTATION ID [id number] Impression Dobbhoff tube tip along the greater curve of the stomach. Thank you for letting us participate in the care of this patient. If you are a health care provider and have any questions regarding this report, please contact the number below. For patients who have questions please contact the health customer care agent that requested your imaging first. Electronically signed by: Arie Bhat, [facility] ([phone]), at 09/18/2024 1:05 PM MRI Brain wwo Contrast (Generic) (Exam End: 09/19/2024 5:43 PM) Result Value WORKSTATION ID [id number] Impression Unchanged size of large right cerebral hemisphere ICH status post partial evacuation. Numerous small foci of decreased acute infarction both along and separate from the site of hemorrhage. These foci are present in both cerebral hemispheres and have a pattern most consistent with embolic infarction. No evidence of NEON MOLDER malignancy Thank you for letting us participate in the care of this patient. If you are a health care provider and have any questions regarding this report, please contact the number below. For patients who have questions please contact the health customer care agent that requested your imaging first. Electronically signed by: Rios Swartz MD, [facility] ([phone]), at 09/20/2024 8:[address] Head wo Contrast (Generic) (Exam End: 09/21/2024 3:50 AM) Result Value WORKSTATION ID [id number] Impression Stable hemorrhage right temporal, parietal, right [...] who have questions please contact the health customer care agent that requested your imaging first. Electronically signed by: Armando Pan MD, [facility] ([phone]), at 09/21/2024 4:55 AM XR Abdomen 1 view (Generic) (Exam End: 09/21/2024 2:01 PM) Result Value WORKSTATION ID [id number] Impression Dobbhoff tube and enteric tube sidehole [...] who have questions please contact the health customer care agent that requested your imaging first. Electronically signed by: Shraddha Cox MD, [facility] ([phone]), at 09/21/2024 3:40 PM XR Chest One View (Exam End: 09/21/2024 2:01 PM) Result Value WORKSTATION ID [id number] Impression ET tube with tip projecting approximately [...] who have questions please contact the health customer care agent that requested your imaging first. Electronically signed by: Octavio Scott MD, [facility] ([phone]), at 09/21/2024 5:[address] Head wo Contrast (Generic) (Exam End: 09/22/2024 4:02 AM) Result Value WORKSTATION ID [id number] Impression Stable head CT status post removal of subcutaneous drain. No new or enlarging hemorrhage. Stable pattern of mass effect Thank you for letting us participate in the care of this patient. If you are a health care provider and have any questions regarding this report, please contact the number below. For patients who have questions please contact the health customer care agent that requested your imaging first. Electronically signed by: Armando Pan MD, [facility] ([phone]), at 09/22/2024 4:[address] Angiogram Chest for Pulmonary Embolus w Contrast (Exam End: 09/26/2024 1:37 PM) Result Value WORKSTATION ID [id number] Impression 1. No pulmonary embolism. 2. Pulmonary [...] who have questions please contact the health customer care agent that requested your imaging first. Electronically signed by: Marvin Decker DO, [facility] ([phone]), at 09/26/2024 1:[address] Head wo Contrast (Generic) (Exam End: 09/26/2024 1:37 PM) Result Value WORKSTATION ID [id number] Impression 1. Stable right-sided parenchymal and subdural [...] who have questions please contact the health customer care agent that requested your imaging first. Electronically signed by: Smiley Cordova MD, [facility] ([phone]), at 09/26/2024 2:[address] Abdomen & Pelvis w Contrast (Exam End: 09/26/2024 1:37 PM) Result Value WORKSTATION ID [id number] Impression 1. No pulmonary embolism. 2. Pulmonary [...] who have questions please contact the health customer care agent that requested your imaging first. Electronically signed by: Marvin Decker DO [facility] ([phone]), at 09/26/2024 1:54 PM XR Chest One View (Exam End: 09/28/2024 4:06 AM) Result Value WORKSTATION ID [id number] Impression 1. Limited examination. 2. Interval removal [...] who have questions please contact the health customer care agent that requested your imaging first. Electronically signed by: Marvin Decker DO [facility] ([phone]), at 09/28/2024 4:12 AM XR Chest One View (Exam End: 09/28/2024 7:58 PM) Result Value WORKSTATION ID [id number] Impression 1. Slightly increased opacity in the [...] who have questions please contact the health customer care agent that requested your imaging first. Electronically signed by: [facility] ([phone]), at 09/28/2024 8:09 PM XR Chest One View (Exam End: 09/29/2024 1:13 PM) Result Value WORKSTATION ID [id number] Impression 1. Limited examination. 2. Stable position [...] who have questions please contact the health customer care agent that requested your imaging first. Electronically signed by: Marvin Decker DO, [facility] ([phone]), at 09/30/2024 12:[address] Head wo Contrast (Generic) (Exam End: 10/04/2024 1:40 AM) Result Value WORKSTATION ID [id number] Impression 1. Overall interval improvement of the [...] who have questions please contact the health customer care agent that requested your imaging first. Electronically signed by: Armando Pan MD, [facility] ([phone]), at 10/04/2024 2:12 AM Assessment: 74 y.o. female with PMHx notable for Afib (taking ASA, previously on apixaban-stopped taking after IPH in April 2024), CHRISTOPHER, HLD, BMI of 36, prior IPH 04/2024 who presented to hospital 09/16/24 for placement of Watchman with cardiology. She developed headaches and nausea post op and CT scan noted large R vztkmmwk-cnypezs-nsadknttf IPH. Now s/p R craniotomy for IPH [...] clinic with JESSI For questions please call [employer] pager [phone] Crys Suarez MD Clinical Documentation Improvement: Active Hospital Problems Diagnosis Right occipital hemorrhage with associated vassogenic edema, anticoagulation associated, probableCAA Severe protein-calorie malnutrition Presence of Watchman left atrial appendage closure device S/P craniotomy Resolved Hospital Problems No resolved problems to display. * Areli Hathaway, BAG MACHINE ADJUSTER - 10/04/2024 8:57 AM EST Speech Pathology Contact Note Chart reviewed. Patient is currently NPO for planned PEG placement. We will follow up on next treatment date as schedule allows. Please secure chat with questions, thanks! Areli Hathaway, MS, CCC-BAG MACHINE ADJUSTER Speech-Language Pathologist Inpatient Rehabilitation Pager # [phone] * Ilir Solkellen Henriquez RD - 10/04/2024 7:45 AM EST Nutrition [...] Follow-up, Tube Feeding Nutrition Recommendations: NPO per BAG MACHINE ADJUSTER 09/30 PEG placement planned for today 10/04. [...] steps: feeds not at goal, need for care home nutrition planif unable to advance diet Current [...] 14 10/02/24 0315 -- 2 Fecal Incontinence Rn Angiography 10/02/24 1208 10/02/24 1208 -- 2 Oxygen [...] encounter: 79.3 kg (174 lb 12.8 oz). [place] Body Weight (IBW) (kg): 45.45 Wt Readings [...] VHP rather than Nutren 1.5, team aware. BAG MACHINE ADJUSTER continues to recommend NPO per 09/30 note. LBM 09/29, optimize regimen. Per EMR, pt with 4% wt loss in <1 week (196lbs on 09/24 to 188lbs on 09/28) which is clinically significant. Unable to complete full NFPE at this time. Planned for upcoming PEG placement. 09/29: TF Dc'd 09/28 @ 1835hr. BAG MACHINE ADJUSTER continues to recommend NPO, need for alternate [...] maxillary line): Not assessed Lean Muscle Loss Jewish region (temporalis muscle): None present Clavicle bone [...] setting of acute illness or injury (Maribel, AUBREYEN J Parenteral Enteral Nutr. 2011; 36(3): 273-83) Nutrition to continue to follow up while inpatient Sol Hazel MS, RD, LD Clinical Nutrition * Gissell Velazco MD - 10/04/2024 6:40 AM EST Images from the original note were not included. VASCULAR NEUROLOGY DAILY PROGRESS NOTE Admit Date 09/16/2024 Responsible Attending: Gissell Velazco MD Primary Provider: Leila Manjarrez [phone] Hospital Day: Hospital Day: 19 Patient ID [...] yesterday - CHAVEZ CARRASCO - NPO at [place] for possible PEG today EXAM Last value [...] 12.52* 13.43* 16.45* 20.01* 22.26* Recent Labs 10/04/242810/03/245 10/02/249 10/01/242009/30/24143 NA 142 146* 146* 141 139 K [...] 168 hours. No results for input(s): PHART, RMK8ARW, PO2ART, AQY0KJA in the last 168 hours. No results [...] PRN #GI - >dysphagia - follow up BAG MACHINE ADJUSTER recs - NPO diet (Give Meds) - [...] Other - Activity: as tolerated - Dispo: Jail facility - Last BM: Last Bowel Movement: [...] 09/18/24 1229 right nostril 16 Fecal Incontinence Rn Angiography 10/02/24 1208 10/02/24 1208 -- 2 Please page Vascular Neurology with any questions, #[phone] Anitra Ruiz, DO Department [place] [address] Neurology Attending Attestation I evaluated [...] 1000 10/03/24 1008 Oxygen Therapy O2 Device [facility] O2 Flow Rate (L/min) 2 L/min -- SpO2 99 % 98 % Resp 14 19 Pt weaned off oxygen this morning arlene well There was concern for increased oxygen requirements at nite Spoke with family Pt [facility], but refuses per family Pt doesn't like it Pt may just need Oxygen at nite RN aware * Clarisse Duke APRN - 10/03/2024 9:09 AM EST Images from the original note were not included. VASCULAR NEUROLOGY DAILY PROGRESS NOTE Admit Date 09/16/2024 Responsible Attending: Gissell Velazco MD Primary Provider: Leila Manjarrez [phone] Hospital Day: Hospital Day: 18 Patient ID [...] tomorrow - Boyfriend at bedside visiting [facility] to give tonight per IR EXAM Last [...] Stool:50] Labs Recent Labs 10/03/24 0405 10/02/24 0149 10/01/24 0021 09/30/24 0144 09/29/24 0109 WBC 15.33* [...] 168 hours. No results for input(s): PHART, DRJ3YVX, PO2ART, WPO6KYN in the last 168 hours. No results [...] No new imaging ASSESSMENT & PLAN Lucero Florence Bruno 74 y.o. [...] PRN #GI - >dysphagia - follow up BAG MACHINE ADJUSTER recs - NPO diet (Give Meds) - [...] Other - Activity: as tolerated - Dispo: Jail facility - Last BM: Last Bowel Movement: [...] 09/18/24 1229 right nostril 15 Fecal Incontinence Rn Angiography 10/02/24 1208 10/02/24 1208 -- 1 Please page Vascular Neurology with any questions, #[phone] Clarisse Duke APRN Department of Neurology [place] [phone] * Chase Cárdenas RN - 10/03/2024 6:34 AM EST Pt rolled and repositioned per policy. * Chase Cárdenas RN - 10/03/2024 12:07 AM EST Page Sent Successfully Page Confirmation To Pager number: [phone] From Submitter: Chase Cárdenas Urgency Level: Call Me Callback Number: [phone] The following Message was sent: [Call Me] - Callback:[phone] [id number]: Need clarification as soon as possible regarding NPO @ 0000 - Chase Cárdenas The following status was returned from the chief inspector: Page for [phone] successfully sent to [phone] having status of Available. * Chase Cárdenas RN - 10/02/2024 11:46 PM EST Page Sent Successfully Page Confirmation To Pager number: [phone] From Submitter: Chase Cárdenas Urgency Level: Call Me Callback Number: [phone] The following Message was sent: [Call Me] - Callback:[phone] [id number]: Did you want TF held [id number] for PEG? Do we do PEGs on Sundays? - Chase Cárdenas The following status was returned from the chief inspector: Page for [phone] successfully sent to [phone] having status of Available.prog * Clarisse Duke, GUEST ROOM INSPECTOR - 10/02/2024 2:29 PM EST Images from the original note were not included. VASCULAR NEUROLOGY DAILY PROGRESS NOTE Admit Date 09/16/2024 Responsible Attending: Gissell Velazco MD Primary Provider: Leila Manjarrez [phone] Hospital Day: Hospital Day: 17 Patient ID [...] [Urine:1525; Stool:300] Labs Recent Labs 10/02/2414810/01/24 0021 09/30/24 0144 09/29/24 0109 09/28/24 0358 WBC 19.16* 22.24* 25.89* 26.40* 35.37* HGB 10.1* 9.9* 10.1* 10.0* 11.0* HCT 31.1* 29.2* 31.0* 30.9* 34.0* PLATELET 399* 370* 376* 397* 443* NEUTROABS 16.45* 20.01* 22.26* 22.77* 30.79* Recent Labs 10/02/2414810/01/24 00209/30/2414309/28/24 0358 09/27/24 1646 09/27/24 0138 NA 146* [...] CK 78 No results for input(s): PHART, BWY5JAJ, PO2ART, MQD9AMZ in the last 168 hours. No results [...] PRN #GI - >dysphagia - follow up BAG MACHINE ADJUSTER recs - NPO diet (Give Meds) NPO [...] Other - Activity: as tolerated - Dispo: Jail facility - Last BM: Last Bowel Movement: [...] 09/18/24 1229 right nostril 14 Fecal Incontinence Rn Angiography 10/02/24 1208 10/02/24 1208 -- less than 1 Please page Vascular Neurology with any questions, #[phone] Clarisse Duke APRN [place] [address] * Annamarie Nelson - 10/01/2024 4:04 PM EST Spiritual Health Visit Completed * Annamarie Nelson - 10/01/2024 10:16 AM EST Spiritual Health Visit Completed * Gissell Velazco MD - 10/01/2024 9:32 AM EST Neurology Progress Note Patient name: Lucero Bruno Date of : 1950 PCP: Leila Carreno-Herson Stroke Assessment: Date last well known:: 09/16/24 [...] 09/16/2024 5:26 PM) Result Value WORKSTATION ID [id number] Impression Interval expansion of now large right-sided [...] who have questions please contact the health customer care agent that requested your imaging first. Electronically signed by: Lana Reinoso [facility] ([phone]), at 09/16/2024 6:[address] Head wo Contrast (Generic) (Exam End: 09/16/2024 11:21 PM) Result Value WORKSTATION ID [id number] Impression CT head: 1. Interval craniotomy with [...] who have questions please contact the health customer care agent that requested your imaging first. Electronically signed by: Armando Pan MD, [facility] ([phone]), at 09/17/2024 1:[address] Venogram Brain (Exam End: 09/16/2024 11:21 PM) Result Value WORKSTATION ID [id number] Impression CT head: 1. Interval craniotomy with [...] who have questions please contact the health customer care agent that requested your imaging first. Electronically signed by: Armando Pan MD, [facility] ([phone]), at 09/17/2024 1:42 AM XR Chest One View (Exam End: 09/16/2024 11:00 PM) Result Value WORKSTATION ID [id number] Impression Satisfactorily positioned enteric and endotracheal tubes. Left lower lobe atelectasis versus pneumonia. Thank you for letting us participate in the care of this patient. If you are a health care provider and have any questions regarding this report, please contact the number below. For patients who have questions please contact the health customer care agent that requested your imaging first. Electronically signed by: Pamela Beard MD, [facility] ([phone]), at 09/17/2024 12:09 AM XR Abdomen 1 view (Generic) (Exam End: 09/16/2024 11:00 PM) Result Value WORKSTATION ID [id number] Impression Satisfactorily positioned enteric and endotracheal tubes. Left lower lobe atelectasis versus pneumonia. Thank you for letting us participate in the care of this patient. If you are a health care provider and have any questions regarding this report, please contact the number below. For patients who have questions please contact the health customer care agent that requested your imaging first. Electronically signed by: Pamela Beard MD, [facility] ([phone]), at 09/17/2024 12:[address] Head wo Contrast (Generic) (Exam End: 09/17/2024 4:51 AM) Result Value WORKSTATION ID [id number] Impression Increased size and density of dominant [...] who have questions please contact the health customer care agent that requested your imaging first. Electronically signed by: Elvin Bolden DO, [facility] ([phone]), at 09/17/2024 8:38 AM XR Chest One View (Exam End: 09/17/2024 2:13 PM) Result Value WORKSTATION ID [id number] Impression 1. No focal opacity in lung [...] who have questions please contact the health customer care agent that requested your imaging first. Electronically signed by: Zoey Zabala MD, [facility] ([phone]), at 09/17/2024 2:43 PM XR Chest One View (Exam End: 09/18/2024 8:43 AM) Result Value WORKSTATION ID [id number] Impression Tubes and lines as described. Blunting of the left costophrenic angle suggests tiny layering left effusion with associated left basilar consolidation/atelectasis Thank you for letting us participate in the care of this patient. If you are a health care provider and have any questions regarding this report, please contact the number below. For patients who have questions please contact the health customer care agent that requested your imaging first. Abdomen 1 view (Generic) (Exam End: 09/18/2024 12:31 PM) Result Value WORKSTATION ID [id number] Impression Dobbhoff tube tip along the greater curve of the stomach. Thank you for letting us participate in the care of this patient. If you are a health care provider and have any questions regarding this report, please contact the number below. For patients who have questions please contact the health customer care agent that requested your imaging first. Electronically signed by: Arie Bhat [facility] ([phone]), at 09/18/2024 1:05 PM MRI Brain wwo Contrast (Generic) (Exam End: 09/19/2024 5:43 PM) Result Value WORKSTATION ID [id number] Impression Unchanged size of large right cerebral hemisphere ICH status post partial evacuation. Numerous small foci of decreased acute infarction both along and separate from the site of hemorrhage. These foci are present in both cerebral hemispheres and have a pattern most consistent with embolic infarction. No evidence of NEON MOLDER malignancy Thank you for letting us participate in the care of this patient. If you are a health care provider and have any questions regarding this report, please contact the number below. For patients who have questions please contact the health customer care agent that requested your imaging first. Electronically signed by: Rios Swartz MD, [facility] ([phone]), at 09/20/2024 8:[address] Head wo Contrast (Generic) (Exam End: 09/21/2024 3:50 AM) Result Value WORKSTATION ID [id number] Impression Stable hemorrhage right temporal, parietal, right [...] who have questions please contact the health customer care agent that requested your imaging first. Electronically signed by: Armando Pan MD, [facility] ([phone]), at 09/21/2024 4:55 AM XR Abdomen 1 view (Generic) (Exam End: 09/21/2024 2:01 PM) Result Value WORKSTATION ID [id number] Impression Dobbhoff tube and enteric tube sidehole [...] who have questions please contact the health customer care agent that requested your imaging first. Electronically signed by: Shraddha Cox MD, [facility] ([phone]), at 09/21/2024 3:40 PM XR Chest One View (Exam End: 09/21/2024 2:01 PM) Result Value WORKSTATION ID [id number] Impression ET tube with tip projecting approximately [...] who have questions please contact the health customer care agent that requested your imaging first. Electronically signed by: Octavio Scott MD, [facility] ([phone]), at 09/21/2024 5:[address] Head wo Contrast (Generic) (Exam End: 09/22/2024 4:02 AM) Result Value WORKSTATION ID [id number] Impression Stable head CT status post removal of subcutaneous drain. No new or enlarging hemorrhage. Stable pattern of mass effect Thank you for letting us participate in the care of this patient. If you are a health care provider and have any questions regarding this report, please contact the number below. For patients who have questions please contact the health customer care agent that requested your imaging first. Electronically signed by: Armando Pan MD, [facility] ([phone]), at 09/22/2024 4:[address] Angiogram Chest for Pulmonary Embolus w Contrast (Exam End: 09/26/2024 1:37 PM) Result Value WORKSTATION ID [id number] Impression 1. No pulmonary embolism. 2. Pulmonary [...] who have questions please contact the health customer care agent that requested your imaging first. Electronically signed by: Marvin Decker DO, [facility] ([phone]), at 09/26/2024 1:[address] Head wo Contrast (Generic) (Exam End: 09/26/2024 1:37 PM) Result Value WORKSTATION ID [id number] Impression 1. Stable right-sided parenchymal and subdural [...] who have questions please contact the health customer care agent that requested your imaging first. Electronically signed by: Smiley Cordova MD, [facility] ([phone]), at 09/26/2024 2:[address] Abdomen & Pelvis w Contrast (Exam End: 09/26/2024 1:37 PM) Result Value WORKSTATION ID [id number] Impression 1. No pulmonary embolism. 2. Pulmonary [...] who have questions please contact the health customer care agent that requested your imaging first. Electronically signed by: Marvin Decker DO, [facility] ([phone]), at 09/26/2024 1:54 PM XR Chest One View (Exam End: 09/28/2024 4:06 AM) Result Value WORKSTATION ID [id number] Impression 1. Limited examination. 2. Interval removal [...] who have questions please contact the health customer care agent that requested your imaging first. Electronically signed by: Marvin Decker DO, [facility] ([phone]), at 09/28/2024 4:12 AM XR Chest One View (Exam End: 09/28/2024 7:58 PM) Result Value WORKSTATION ID [id number] Impression 1. Slightly increased opacity in the [...] who have questions please contact the health customer care agent that requested your imaging first. Electronically signed by: Sammy Story MD, [facility] ([phone]), at 09/28/2024 8:09 PM XR Chest One View (Exam End: 09/29/2024 1:13 PM) Result Value WORKSTATION ID [id number] Impression 1. Limited examination. 2. Stable position [...] who have questions please contact the health customer care agent that requested your imaging first. Electronically signed by: Marvin Decker DO, [facility] ([phone]), at 09/30/2024 12:49 AM Assessment and Plan: [...] brain wo contrast -CTA head & neck -PT/OT/BAG MACHINE ADJUSTER -Neurosurgery consulted # Leukocytosis # Pneumonia # [...] Yes Jung Yun MD Vascular Neurology Pager [phone] Neurology Attending Attestation I evaluated the patient [...] documented. Gissell Velazco MD Vascular Neurology Standard [facility] [place] Screen: This screen is to be [...] diet as medical provider deems appropriate. Consider BAG MACHINE ADJUSTER consult for full evaluation and diet recommendations. If NO to any of the responses, stop immediately, keep patient NPO and notify physician. * Jo Potts, ASHLEY - 10/01/2024 8:45 AM EST Nutrition Progress Note Lucero Bruno is a 74 y.o. 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 Interval History No data found. Reason for Assessment: Follow-up, Tube Feeding Nutrition Recommendations: NPO per BAG MACHINE ADJUSTER 09/30 Continue TF and limit holds as [...] feeds not at goal, need for termite renewal inspector nutrition planif unable to advance diet Current [...] encounter: 85.5 kg (188 lb 7.9 oz). [place] Body Weight (IBW) (kg): 45.45 Wt Readings [...] VHP rather than Nutren 1.5, team aware. BAG MACHINE ADJUSTER continues to recommend NPO per 09/30 note. LBM 09/29, optimize regimen. Per EMR, pt with 4% wt loss in <1 week (196lbs on 09/24 to 188lbs on 09/28) which is clinically significant. Unable to complete full NFPE at this time. Planned for upcoming PEG placement. 09/29: TF Dc'd 09/28 @ 1835hr. BAG MACHINE ADJUSTER continues to recommend NPO, need for alternate [...] maxillary line): Not assessed Lean Muscle Loss Jewish region (temporalis muscle): None present Clavicle bone [...] be 2/2 to CAA who [place] [facility] [place] subsequently developing a large [...] in all aspects. 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 Please [...] Stand to Sit: NA Bed to Chair: [facility] lift transfer from EOB to recliner [...] the current findings, Anticipated Discharge Disposition (PT): residential facility when medically ready for hospital discharge. [...] plan as stated. Time IN / OUT: [id number] Total Minutes, Physical Therapy: 28 Billing Code: TEF1 Kymberly Baptiste PT, DPT, NCS Pager: [phone] Physical Therapy Inpatient Rehabilitation Department * Rob Guzman MD - 09/30/2024 2:28 PM EST [facility] NEUROSURGERY PROGRESS NOTE ID: Lucero Bruno 74 [...] Incision CDI - stacey LABS: Recent Labs 09/30/24 01409/29/24 0109 09/28/24357 WBC 25.89* 26.40* 35.37* HGB 10.1* 10.0* 11.0* PLATELET 376* 397* 443* Recent Labs 09/30/24 01409/28/2435709/27/24 1646 NA 139 138 -- K 3.9 4.0 4.0 CL 104 106 -- CO2 25 22 -- BUN 16 21* -- CREATININE 0.47* 0.49* -- No results for input(s): PT, INR in the last 72 hours. IMAGING: Results for orders placed or performed during the hospital encounter of 09/16/24 CT Head wo Contrast (Generic) (Exam End: 09/16/2024 5:26 PM) Result Value WORKSTATION ID [id number] Impression Interval expansion of now large right-sided [...] who have questions please contact the health customer care agent that requested your imaging first. Electronically signed by: Lana Reinoso, [facility] ([phone]), at 09/16/2024 6:[address] Head wo Contrast (Generic) (Exam End: 09/16/2024 11:21 PM) Result Value WORKSTATION ID [id number] Impression CT head: 1. Interval craniotomy with [...] who have questions please contact the health customer care agent that requested your imaging first. Electronically signed by: Armando Pan MD, [facility] ([phone]), at 09/17/2024 1:[address] Venogram Brain (Exam End: 09/16/2024 11:21 PM) Result Value WORKSTATION ID [id number] Impression CT head: 1. Interval craniotomy with [...] who have questions please contact the health customer care agent that requested your imaging first. Electronically signed by: Armando Pan MD, [facility] ([phone]), at 09/17/2024 1:42 AM XR Chest One View (Exam End: 09/16/2024 11:00 PM) Result Value WORKSTATION ID [id number] Impression Satisfactorily positioned enteric and endotracheal tubes. Left lower lobe atelectasis versus pneumonia. Thank you for letting us participate in the care of this patient. If you are a health care provider and have any questions regarding this report, please contact the number below. For patients who have questions please contact the health customer care agent that requested your imaging first. Electronically signed by: Pamela Beard MD, [facility] ([phone]), at 09/17/2024 12:09 AM XR Abdomen 1 view (Generic) (Exam End: 09/16/2024 11:00 PM) Result Value WORKSTATION ID [id number] Impression Satisfactorily positioned enteric and endotracheal tubes. Left lower lobe atelectasis versus pneumonia. Thank you for letting us participate in the care of this patient. If you are a health care provider and have any questions regarding this report, please contact the number below. For patients who have questions please contact the health customer care agent that requested your imaging first. Electronically signed by: Pamela Beard MD, [facility] ([phone]), at 09/17/2024 12:[address] Head wo Contrast (Generic) (Exam End: 09/17/2024 4:51 AM) Result Value WORKSTATION ID [id number] Impression Increased size and density of dominant [...] who have questions please contact the health customer care agent that requested your imaging first. Electronically signed by: Elvin Bolden DO, [facility] ([phone]), at 09/17/2024 8:38 AM XR Chest One View (Exam End: 09/17/2024 2:13 PM) Result Value WORKSTATION ID [id number] Impression 1. No focal opacity in lung [...] who have questions please contact the health customer care agent that requested your imaging first. Electronically signed by: Zoey Zabala MD, [facility] ([phone]), at 09/17/2024 2:43 PM XR Chest One View (Exam End: 09/18/2024 8:43 AM) Result Value WORKSTATION ID [id number] Impression Tubes and lines as described. Blunting of the left costophrenic angle suggests tiny layering left effusion with associated left basilar consolidation/atelectasis Thank you for letting us participate in the care of this patient. If you are a health care provider and have any questions regarding this report, please contact the number below. For patients who have questions please contact the health customer care agent that requested your imaging first. Electronically signed by: Arie Bhat [facility] ([phone]), at 09/18/2024 9:29 AM XR Abdomen 1 view (Generic) (Exam End: 09/18/2024 12:31 PM) Result Value WORKSTATION ID [id number] Impression Dobbhoff tube tip along the greater curve of the stomach. Thank you for letting us participate in the care of this patient. If you are a health care provider and have any questions regarding this report, please contact the number below. For patients who have questions please contact the health customer care agent that requested your imaging first. Electronically signed by: Arie Bhat [facility] ([phone]), at 09/18/2024 1:05 PM MRI Brain wwo Contrast (Generic) (Exam End: 09/19/2024 5:43 PM) Result Value WORKSTATION ID [id number] Impression Unchanged size of large right cerebral hemisphere ICH status post partial evacuation. Numerous small foci of decreased acute infarction both along and separate from the site of hemorrhage. These foci are present in both cerebral hemispheres and have a pattern most consistent with embolic infarction. No evidence of NEON MOLDER malignancy Thank you for letting us participate in the care of this patient. If you are a health care provider and have any questions regarding this report, please contact the number below. For patients who have questions please contact the health customer care agent that requested your imaging first. Electronically signed by: Rios Swartz MD, [facility] ([phone]), at 09/20/2024 8:[address] Head wo Contrast (Generic) (Exam End: 09/21/2024 3:50 AM) Result Value WORKSTATION ID [id number] Impression Stable hemorrhage right temporal, parietal, right [...] who have questions please contact the health customer care agent that requested your imaging first. Electronically signed by: Armando Pan MD, [facility] ([phone]), at 09/21/2024 4:55 AM XR Abdomen 1 view (Generic) (Exam End: 09/21/2024 2:01 PM) Result Value WORKSTATION ID [id number] Impression Dobbhoff tube and enteric tube sidehole [...] who have questions please contact the health customer care agent that requested your imaging first. Electronically signed by: Shraddha Cox MD, [facility] ([phone]), at 09/21/2024 3:40 PM XR Chest One View (Exam End: 09/21/2024 2:01 PM) Result Value WORKSTATION ID [id number] Impression ET tube with tip projecting approximately [...] who have questions please contact the health customer care agent that requested your imaging first. Electronically signed by: Octavio Scott MD, [facility] ([phone]), at 09/21/2024 5:[address] Head wo Contrast (Generic) (Exam End: 09/22/2024 4:02 AM) Result Value WORKSTATION ID [id number] Impression Stable head CT status post removal of subcutaneous drain. No new or enlarging hemorrhage. Stable pattern of mass effect Thank you for letting us participate in the care of this patient. If you are a health care provider and have any questions regarding this report, please contact the number below. For patients who have questions please contact the health customer care agent that requested your imaging first. Electronically signed by: Armando Pan MD, [facility] ([phone]), at 09/22/2024 4:[address] Angiogram Chest for Pulmonary Embolus w Contrast (Exam End: 09/26/2024 1:37 PM) Result Value WORKSTATION ID [id number] Impression 1. No pulmonary embolism. 2. Pulmonary [...] who have questions please contact the health customer care agent that requested your imaging first. Electronically signed by: Marvin Decker DO, [facility] ([phone]), at 09/26/2024 1:[address] Head wo Contrast (Generic) (Exam End: 09/26/2024 1:37 PM) Result Value WORKSTATION ID [id number] Impression 1. Stable right-sided parenchymal and subdural [...] who have questions please contact the health customer care agent that requested your imaging first. Electronically signed by: Smiley Cordova MD, [facility] ([phone]), at 09/26/2024 2:[address] Abdomen & Pelvis w Contrast (Exam End: 09/26/2024 1:37 PM) Result Value WORKSTATION ID [id number] Impression 1. No pulmonary embolism. 2. Pulmonary [...] who have questions please contact the health customer care agent that requested your imaging first. Electronically signed by: [facility] ([phone]), at 09/26/2024 1:54 PM XR Chest One View (Exam End: 09/28/2024 4:06 AM) Result Value WORKSTATION ID [id number] Impression 1. Limited examination. 2. Interval removal [...] who have questions please contact the health customer care agent that requested your imaging first. Electronically signed by: Marvin Decker DO, [facility] ([phone]), at 09/28/2024 4:12 AM XR Chest One View (Exam End: 09/28/2024 7:58 PM) Result Value WORKSTATION ID [id number] Impression 1. Slightly increased opacity in the [...] who have questions please contact the health customer care agent that requested your imaging first. Electronically signed by: Sammy Story MD, [facility] ([phone]), at 09/28/2024 8:09 PM XR Chest One View (Exam End: 09/29/2024 1:13 PM) Result Value WORKSTATION ID [id number] Impression 1. Limited examination. 2. Stable position [...] who have questions please contact the health customer care agent that requested your imaging first. Electronically signed by: Marvin Decker DO, [facility] ([phone]), at 09/30/2024 12:49 AM Assessment: 74 y.o. female with PMHx notable for Afib (taking ASA, previously on apixaban-stopped taking after IPH in April 2024), CHRISTOPHER, HLD, BMI of 36, prior IPH 04/2024 who presented to hospital 09/16/24 for placement of Watchman with cardiology. She developed headaches and nausea post op and CT scan noted large R efqdayfy-vjvkhla-xygwxvumh IPH. 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 who [place] [facility] [place] subsequently developing a [...] and therapy goals Anticipated Discharge Disposition (OT): residential facility Equipment Recommendations: Equipment Needs Upon Discharge [...] 2-3 times/wk Total Minutes, Occupational Therapy: 36 [phone]) Diana Lucas OTR/L They/Them Occupational Therapy Rehabilitation Department Pager # [phone] * Agustin Loving PA - 09/30/2024 12:26 [...] and prior IPH (04/2024) who presented [place] [facility] [place] for placement of Watchman with cardiology. She developed headaches and nausea post-operatively and was found to have a large R hqtxitjp-tbrbkbn-htvvatwhq IPH, now s/p craniotomy. Patient was intubated from 09/16-09/21 with extubation complicated by stridor requiring re-intubation from 09/21-09/26 (11 days total). BAG MACHINE ADJUSTER has been following since 09/27 for communication [...] today Bolus Presentation(s): Tested Comments Thin liquids [place] thick liquids Honey thick liquids Pureed solids [...] significant other and participated in limited writing w/BAG MACHINE ADJUSTER, primarily single words. Aubree remains unable to [...] chips when she is alert and accepting. BAG MACHINE ADJUSTER will continue to follow for serial reassessment, [...] in ongoing cognitive-communication assessment Plan: Therapy Frequency (BAG MACHINE ADJUSTER Eval): 3-5 times/wk Patient is in agreement with the plan of care. Total Minutes (Speech Language Pathology): 24 Lamont Holm MS, CCC-BAG MACHINE ADJUSTER Speech-Language Pathology Inpatient Rehabilitation Department Pager # [phone] Gissell Allan MD - 09/30/2024 8:02 AM EST Neurology Progress Note Patient name: Lucero Bruno Date of : 1950 PCP: Leila Manjarrez Stroke Assessment: Date last well known:: 09/16/24 Time last well known:: 162 Date of discovery of symptoms:: 09/16/24 Time of discovery of symptoms:: 162 The time difference from patients last known well to ED arrival OR inpatient stroke alert was (choose one): Less than or equal to 4.5 hours Date acute stroke team was at bedside:: 09/16/24 Time acute stroke team was at bedside:: 1645 CT interpretation date: 09/16/24 CT interpretation time:: 1444 Was dysphagia screen performed?: No CC: R [...] 09/16/2024 5:26 PM) Result Value WORKSTATION ID [id number] Impression Interval expansion of now large right-sided [...] who have questions please contact the health customer care agent that requested your imaging first. Electronically signed by: Lana Reinoso, [facility] ([phone]), at 09/16/2024 6:[address] Head wo Contrast (Generic) (Exam End: 09/16/2024 11:21 PM) Result Value WORKSTATION ID [id number] Impression CT head: 1. Interval craniotomy with [...] who have questions please contact the health customer care agent that requested your imaging first. Electronically signed by: Armando Pan MD, [facility] ([phone]), at 09/17/2024 1:[address] Venogram Brain (Exam End: 09/16/2024 11:21 PM) Result Value WORKSTATION ID [id number] Impression CT head: 1. Interval craniotomy with [...] who have questions please contact the health customer care agent that requested your imaging first. Electronically signed by: Armando Pan MD, [facility] ([phone]), at 09/17/2024 1:42 AM XR Chest One View (Exam End: 09/16/2024 11:00 PM) Result Value WORKSTATION ID [id number] Impression Satisfactorily positioned enteric and endotracheal tubes. Left lower lobe atelectasis versus pneumonia. Thank you for letting us participate in the care of this patient. If you are a health care provider and have any questions regarding this report, please contact the number below. For patients who have questions please contact the health customer care agent that requested your imaging first. Electronically signed by: Pamela Beard MD, [facility] ([phone]), at 09/17/2024 12:09 AM XR Abdomen 1 view (Generic) (Exam End: 09/16/2024 11:00 PM) Result Value WORKSTATION ID [id number] Impression Satisfactorily positioned enteric and endotracheal tubes. Left lower lobe atelectasis versus pneumonia. Thank you for letting us participate in the care of this patient. If you are a health care provider and have any questions regarding this report, please contact the number below. For patients who have questions please contact the health customer care agent that requested your imaging first. Electronically signed by: Pamela Beard MD, [facility] ([phone]), at 09/17/2024 12:[address] Head wo Contrast (Generic) (Exam End: 09/17/2024 4:51 AM) Result Value WORKSTATION ID [id number] Impression Increased size and density of dominant [...] who have questions please contact the health customer care agent that requested your imaging first. Electronically signed by: Elvin Bolden DO, [facility] ([phone]), at 09/17/2024 8:38 AM XR Chest One View (Exam End: 09/17/2024 2:13 PM) Result Value WORKSTATION ID [id number] Impression 1. No focal opacity in lung [...] who have questions please contact the health customer care agent that requested your imaging first. Electronically signed by: Zoey Zabala MD, [facility] ([phone]), at 09/17/2024 2:43 PM XR Chest One View (Exam End: 09/18/2024 8:43 AM) Result Value WORKSTATION ID [id number] Impression Tubes and lines as described. Blunting of the left costophrenic angle suggests tiny layering left effusion with associated left basilar consolidation/atelectasis Thank you for letting us participate in the care of this patient. If you are a health care provider and have any questions regarding this report, please contact the number below. For patients who have questions please contact the health customer care agent that requested your imaging first. Electronically signed by: Arie Bhat [facility] ([phone]), at 09/18/2024 9:29 AM XR Abdomen 1 view (Generic) (Exam End: 09/18/2024 12:31 PM) Result Value WORKSTATION ID [id number] Impression Dobbhoff tube tip along the greater curve of the stomach. Thank you for letting us participate in the care of this patient. If you are a health care provider and have any questions regarding this report, please contact the number below. For patients who have questions please contact the health customer care agent that requested your imaging first. Electronically signed by: Arie Bhat [facility] ([phone]), at 09/18/2024 1:05 PM MRI Brain wwo Contrast (Generic) (Exam End: 09/19/2024 5:43 PM) Result Value WORKSTATION ID [id number] Impression Unchanged size of large right cerebral hemisphere ICH status post partial evacuation. Numerous small foci of decreased acute infarction both along and separate from the site of hemorrhage. These foci are present in both cerebral hemispheres and have a pattern most consistent with embolic infarction. No evidence of NEON MOLDER malignancy Thank you for letting us participate in the care of this patient. If you are a health care provider and have any questions regarding this report, please contact the number below. For patients who have questions please contact the health customer care agent that requested your imaging first. Electronically signed by: Rios Swartz MD, [facility] ([phone]), at 09/20/2024 8:[address] Head wo Contrast (Generic) (Exam End: 09/21/2024 3:50 AM) Result Value WORKSTATION ID [id number] Impression Stable hemorrhage right temporal, parietal, right [...] who have questions please contact the health customer care agent that requested your imaging first. Electronically signed by: Armando Pan MD, [facility] ([phone]), at 09/21/2024 4:55 AM XR Abdomen 1 view (Generic) (Exam End: 09/21/2024 2:01 PM) Result Value WORKSTATION ID [id number] Impression Dobbhoff tube and enteric tube sidehole [...] who have questions please contact the health customer care agent that requested your imaging first. Electronically signed by: Shraddha Cox MD, [facility] ([phone]), at 09/21/2024 3:40 PM XR Chest One View (Exam End: 09/21/2024 2:01 PM) Result Value WORKSTATION ID [id number] Impression ET tube with tip projecting approximately [...] who have questions please contact the health customer care agent that requested your imaging first. Electronically signed by: Octavio Scott MD, [facility] ([phone]), at 09/21/2024 5:[address] Head wo Contrast (Generic) (Exam End: 09/22/2024 4:02 AM) Result Value WORKSTATION ID [id number] Impression Stable head CT status post removal of subcutaneous drain. No new or enlarging hemorrhage. Stable pattern of mass effect Thank you for letting us participate in the care of this patient. If you are a health care provider and have any questions regarding this report, please contact the number below. For patients who have questions please contact the health customer care agent that requested your imaging first. Electronically signed by: Armando Pan MD, [facility] ([phone]), at 09/22/2024 4:[address] Angiogram Chest for Pulmonary Embolus w Contrast (Exam End: 09/26/2024 1:37 PM) Result Value WORKSTATION ID [id number] Impression 1. No pulmonary embolism. 2. Pulmonary [...] who have questions please contact the health customer care agent that requested your imaging first. Electronically signed by: Marvin Decker DO, [facility] ([phone]), at 09/26/2024 1:[address] Head wo Contrast (Generic) (Exam End: 09/26/2024 1:37 PM) Result Value WORKSTATION ID [id number] Impression 1. Stable right-sided parenchymal and subdural [...] who have questions please contact the health customer care agent that requested your imaging first. Electronically signed by: Smiley Cordova MD, [facility] ([phone]), at 09/26/2024 2:[address] Abdomen & Pelvis w Contrast (Exam End: 09/26/2024 1:37 PM) Result Value WORKSTATION ID [id number] Impression 1. No pulmonary embolism. 2. Pulmonary [...] who have questions please contact the health customer care agent that requested your imaging first. Electronically signed by: Marvin Decker DO, [facility] ([phone]), at 09/26/2024 1:54 PM XR Chest One View (Exam End: 09/28/2024 4:06 AM) Result Value WORKSTATION ID [id number] Impression 1. Limited examination. 2. Interval removal [...] who have questions please contact the health customer care agent that requested your imaging first. Electronically signed by: Marvin Decker DO, [facility] ([phone]), at 09/28/2024 4:12 AM XR Chest One View (Exam End: 09/28/2024 7:58 PM) Result Value WORKSTATION ID [id number] Impression 1. Slightly increased opacity in the [...] who have questions please contact the health customer care agent that requested your imaging first. Electronically signed by: Sammy Story MD, [facility] ([phone]), at 09/28/2024 8:09 PM XR Chest One View (Exam End: 09/29/2024 1:13 PM) Result Value WORKSTATION ID [id number] Impression 1. Limited examination. 2. Stable position [...] who have questions please contact the health customer care agent that requested your imaging first. Electronically signed by: Marvin Decker DO, [facility] ([phone]), at 09/30/2024 12:49 AM Assessment and Plan: [...] brain wo contrast -CTA head & neck -PT/OT/BAG MACHINE ADJUSTER -Neurosurgery consulted # Leukocytosis # Pneumonia - [...] Yes Jung Yun MD Vascular Neurology Pager [phone] Neurology Attending Attestation I evaluated the patient [...] documented. Gissell Velazco MD Vascular Neurology Standard [facility] [place]: This screen is to be [...] diet as medical provider deems appropriate. Consider BAG MACHINE ADJUSTER consult for full evaluation and diet recommendations. [...] and prior IPH (04/2024) who presented [place] [facility] [place] for placement of Watchman with cardiology. She developed headaches and nausea post-operatively and was found to have a large R eazyaiti-elxvyfu-budpvddxg IPH, now s/p craniotomy. Patient was intubated from 09/16-09/21 with extubation complicated by stridor requiring re-intubation from 09/21-09/26 (11 days total). BAG MACHINE ADJUSTER has been following since 09/27 for communication [...] today Bolus Presentation(s): Tested Comments Thin liquids [place] thick liquids Honey thick liquids Pureed solids [...] (patient reports cough) with approximately 50% of Greek ice trials Pt complaint of food getting [...] safe swallowing strategies. ONGOING Plan: Therapy Frequency (BAG MACHINE ADJUSTER Eval): 3-5 times/wk Patient is in agreement with the plan of care. Total Minutes (Speech Language Pathology): 40 Areli Hathaway MS, CCC-BAG MACHINE ADJUSTER Speech-Language Pathologist Inpatient Rehabilitation Pager # [phone] * Chino Washburn MD - 09/29/2024 2:49 [...] reviewed Procedures - reveiwed External Records in [facility] - reviewed. Impression & Recommendations: 74 year-old [...] ID team will sign off. Please page [phone] with any questions. 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 Interval History No data found. Reason for Assessment: Follow-up, Tube Feeding Nutrition Recommendations: NPO per BAG MACHINE ADJUSTER 09/28 Resume TF and limit holds as [...] feeds not at goal, need for termite renewal inspector nutrition planif unable to advance diet Current [...] encounter: 85.4 kg (188 lb 4.4 oz). [place] Body Weight (IBW) (kg): 45.45 Wt Readings [...] interview: 09/29: TF Dc'd 09/28 @ 1835hr. BAG MACHINE ADJUSTER continues to recommend NPO, need for alternate [...] Scale Date 09/16/24 NIH Stroke Scale Time 164 Level of Consciousness 0 LOC Questions 2 [...] brain wo contrast -CTA head & neck -PT/OT/BAG MACHINE ADJUSTER -Neurosurgery consulted # Leukocytosis # Pneumonia - repeat CXR 09/29 - on Zosyn (09/24 - 09/29) - CBC - ID consult - C. Diff negative # Prophylaxis -Lovenox 40 mg QHS -RBOs -SCDs # Supportive Care -Pantoprazole 40 mg IV -NPO -Tylenol PRN -Up with assistance # FULL code Stroke Navigator Completed: Yes Jung Yun MD Vascular Neurology Pager [phone] Neurology Attending Attestation I evaluated the patient [...] documented. Gissell Velazco MD Vascular Neurology Standard [facility] [place]allow Screen: This screen is to be [...] diet as medical provider deems appropriate. Consider BAG MACHINE ADJUSTER consult for full evaluation and diet recommendations. If NO to any of the responses, stop immediately, keep patient NPO and notify physician. * Rob Guzman MD - 09/29/2024 7:29 AM EST [facility] NEUROSURGERY PROGRESS NOTE ID: Lucero Bruno 74 [...] - stacey LABS: Recent Labs 09/29/24 0109 09/28/2435709/27/24 013 WBC 26.40* 35.37* 39.03* HGB 10.0* 11.0* 12.5 PLATELET 397* 443* 510* Recent Labs 09/28/2435709/27/24 1646 09/27/248 NA 138 -- 139 K 4.0 4.0 3.8 CL 106 -- 103 CO2 22 -- 25 BUN 21* -- 17 CREATININE 0.49* -- 0.51* No results for input(s): PT, INR in the last 72 hours. IMAGING: Results for orders placed or performed during the hospital encounter of 09/16/24 CT Head wo Contrast (Generic) (Exam End: 09/16/2024 5:26 PM) Result Value WORKSTATION ID [id number] Impression Interval expansion of now large right-sided [...] who have questions please contact the health customer care agent that requested your imaging first. Electronically signed by: Lana Reinoso [facility] ([phone]), at 09/16/2024 6:[address] Head wo Contrast (Generic) (Exam End: 09/16/2024 11:21 PM) Result Value WORKSTATION ID [id number] Impression CT head: 1. Interval craniotomy with [...] who have questions please contact the health customer care agent that requested your imaging first. Electronically signed by: Armando Pan MD, [facility] ([phone]), at 09/17/2024 1:[address] Venogram Brain (Exam End: 09/16/2024 11:21 PM) Result Value WORKSTATION ID [id number] Impression CT head: 1. Interval craniotomy with [...] who have questions please contact the health customer care agent that requested your imaging first. Electronically signed by: Armando Pan MD, [facility] ([phone]), at 09/17/2024 1:42 AM XR Chest One View (Exam End: 09/16/2024 11:00 PM) Result Value WORKSTATION ID [id number] Impression Satisfactorily positioned enteric and endotracheal tubes. Left lower lobe atelectasis versus pneumonia. Thank you for letting us participate in the care of this patient. If you are a health care provider and have any questions regarding this report, please contact the number below. For patients who have questions please contact the health customer care agent that requested your imaging first. Electronically signed by: Pamela Beard MD, [facility] ([phone]), at 09/17/2024 12:09 AM XR Abdomen 1 view (Generic) (Exam End: 09/16/2024 11:00 PM) Result Value WORKSTATION ID [id number] Impression Satisfactorily positioned enteric and endotracheal tubes. Left lower lobe atelectasis versus pneumonia. Thank you for letting us participate in the care of this patient. If you are a health care provider and have any questions regarding this report, please contact the number below. For patients who have questions please contact the health customer care agent that requested your imaging first. Electronically signed by: Pamela Beard MD, [facility] ([phone]), at 09/17/2024 12:[address] Head wo Contrast (Generic) (Exam End: 09/17/2024 4:51 AM) Result Value WORKSTATION ID [id number] Impression Increased size and density of dominant [...] who have questions please contact the health customer care agent that requested your imaging first. Electronically signed by: Elvin Bolden DO, [facility] ([phone]), at 09/17/2024 8:38 AM XR Chest One View (Exam End: 09/17/2024 2:13 PM) Result Value WORKSTATION ID [id number] Impression 1. No focal opacity in lung [...] who have questions please contact the health customer care agent that requested your imaging first. Electronically signed by: Zoey Zabala MD, [facility] ([phone]), at 09/17/2024 2:43 PM XR Chest One View (Exam End: 09/18/2024 8:43 AM) Result Value WORKSTATION ID [id number] Impression Tubes and lines as described. Blunting of the left costophrenic angle suggests tiny layering left effusion with associated left basilar consolidation/atelectasis Thank you for letting us participate in the care of this patient. If you are a health care provider and have any questions regarding this report, please contact the number below. For patients who have questions please contact the health customer care agent that requested your imaging first. Abdomen 1 view (Generic) (Exam End: 09/18/2024 12:31 PM) Result Value WORKSTATION ID [id number] Impression Dobbhoff tube tip along the greater curve of the stomach. Thank you for letting us participate in the care of this patient. If you are a health care provider and have any questions regarding this report, please contact the number below. For patients who have questions please contact the health customer care agent that requested your imaging first. Brain wwo Contrast (Generic) (Exam End: 09/19/2024 5:43 PM) Result Value WORKSTATION ID [id number] Impression Unchanged size of large right cerebral hemisphere ICH status post partial evacuation. Numerous small foci of decreased acute infarction both along and separate from the site of hemorrhage. These foci are present in both cerebral hemispheres and have a pattern most consistent with embolic infarction. No evidence of NEON MOLDER malignancy Thank you for letting us participate in the care of this patient. If you are a health care provider and have any questions regarding this report, please contact the number below. For patients who have questions please contact the health customer care agent that requested your imaging first. Electronically signed by: Rios Swartz MD, [facility] ([phone]), at 09/20/2024 8:[address] Head wo Contrast (Generic) (Exam End: 09/21/2024 3:50 AM) Result Value WORKSTATION ID [id number] Impression Stable hemorrhage right temporal, parietal, right [...] who have questions please contact the health customer care agent that requested your imaging first. Electronically signed by: Armando aPn MD, [facility] ([phone]), at 09/21/2024 4:55 AM XR Abdomen 1 view (Generic) (Exam End: 09/21/2024 2:01 PM) Result Value WORKSTATION ID [id number] Impression Dobbhoff tube and enteric tube sidehole [...] who have questions please contact the health customer care agent that requested your imaging first. Electronically signed by: Shraddha Cox MD, [facility] ([phone]), at 09/21/2024 3:40 PM XR Chest One View (Exam End: 09/21/2024 2:01 PM) Result Value WORKSTATION ID [id number] Impression ET tube with tip projecting approximately [...] who have questions please contact the health customer care agent that requested your imaging first. Electronically signed by: Octavio Scott MD, [facility] ([phone]), at 09/21/2024 5:[address] Head wo Contrast (Generic) (Exam End: 09/22/2024 4:02 AM) Result Value WORKSTATION ID [id number] Impression Stable head CT status post removal of subcutaneous drain. No new or enlarging hemorrhage. Stable pattern of mass effect Thank you for letting us participate in the care of this patient. If you are a health care provider and have any questions regarding this report, please contact the number below. For patients who have questions please contact the health customer care agent that requested your imaging first. Electronically signed by: Armando Pan MD, [facility] ([phone]), at 09/22/2024 4:[address] Angiogram Chest for Pulmonary Embolus w Contrast (Exam End: 09/26/2024 1:37 PM) Result Value WORKSTATION ID [id number] Impression 1. No pulmonary embolism. 2. Pulmonary [...] who have questions please contact the health customer care agent that requested your imaging first. Electronically signed by: Marvin Decker DO, [facility] ([phone]), at 09/26/2024 1:[address] Head wo Contrast (Generic) (Exam End: 09/26/2024 1:37 PM) Result Value WORKSTATION ID [id number] Impression 1. Stable right-sided parenchymal and subdural [...] who have questions please contact the health customer care agent that requested your imaging first. Electronically signed by: Smiley Cordova MD, [facility] ([phone]), at 09/26/2024 2:[address] Abdomen & Pelvis w Contrast (Exam End: 09/26/2024 1:37 PM) Result Value WORKSTATION ID [id number] Impression 1. No pulmonary embolism. 2. Pulmonary [...] who have questions please contact the health customer care agent that requested your imaging first. Electronically signed by: Marvin Decker DO, [facility] ([phone]), at 09/26/2024 1:54 PM XR Chest One View (Exam End: 09/28/2024 4:06 AM) Result Value WORKSTATION ID [id number] Impression 1. Limited examination. 2. Interval removal [...] who have questions please contact the health customer care agent that requested your imaging first. Electronically signed by: Marvin Decker DO [facility] ([phone]), at 09/28/2024 4:12 AM XR Chest One View (Exam End: 09/28/2024 7:58 PM) Result Value WORKSTATION ID [id number] Impression 1. Slightly increased opacity in the [...] who have questions please contact the health customer care agent that requested your imaging first. Electronically signed by: Sammy Story MD, [facility] ([phone]), at 09/28/2024 8:09 PM Assessment: 74 y.o. female with PMHx notable for Afib (taking ASA, previously on apixaban-stopped taking after IPH in April 2024), CHRISTOPHER, HLD, BMI of 36, prior IPH 04/2024 who presented to hospital 09/16/24 for placement of Watchman with cardiology. She developed headaches and nausea post op and CT scan noted large R rsglmdat-rapkthm-eszkbefvm IPH. Now s/p R craniotomy for IPH [...] -SBP 90-160 -DVT ppx with SCDs, SQH -BAG MACHINE ADJUSTER for diet advancement -Na goal eunatremia -Rest of care per primary For questions please call [employer] 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 [...] plan as stated. 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 BAG MACHINE ADJUSTER evaluations ongoing, but given degree of dysphagia, [...] I/O 09/25 0709/26 0709/26 0709/27 0709/27 0709/28 0709/29 07 P.O. 0 0 0 0 I.V. (mL/kg/hr) [...] cause phlebitis (vasopressors, concentrated electrolytes, TPN, chemotherapy) 09/18/24 06 Site Preparation/Maintenance dressing: dry and intact 09/18/24599 Dressing change due 09/21/24 09/18/24 0200 Securement sutures, secured with 09/18/24599 Distal Patency/Maintenance flushed without difficulty 09/18/24 06 Medial Patency/Maintenance flushed without difficulty 09/18/24 06 Proximal Patency/Maintenance flushed without difficulty 09/18/24599 Phlebitis 0-->no symptoms 09/18/24 0400 Infiltration 0-->no symptoms 09/18/24 06 Site Signs/Symptoms no redness;no swelling;no warmth 09/18/24 0600 PIV 09/16/24 1305 1 in length;18 gauge median cubital vein (antecubital fossa), right (Active) Indication/Daily Review of Necessity medication therapy intermittent 09/18/24599 Site Preparation/Maintenance dressing: dry and intact 09/18/24599 Securement catheter stabilization device, secured with 09/18/24 06 Patency/Maintenance flushed without difficulty 09/18/24 06 Phlebitis 0-->no symptoms 09/18/24 06 Infiltration 0-->no symptoms 09/18/24 06 Site Signs/Symptoms no swelling;no warmth;no redness 09/18/24 06 PIV 09/16/24 2216 20 gauge median cubital vein (antecubital fossa), left (Active) Indication/Daily Review of Necessity medication therapy intermittent 09/18/24 06 Site Preparation/Maintenance dressing: dry and intact 09/18/24599 [...] secured to upper leg with adhesive device 09/18/24 0200 Maintenance Closed system maintained;Urine flow is unobstructed;Collection [...] measured 09/17/24 0830 Securement taped to ETT 09/18/24 0200 Insertion Site Appearance no redness;no warmth;no tenderness;no skin breakdown;no drainage Tolerance no adverse signs/symptoms 09/18/24 020 Drainage Color yellow 09/17/24 0336 Flush/Irrigation flushed [...] 09/18/24840 Airway Tube Secured At (cm) 22 09/18/24 08 Cuff Pressure (cm H2O/mLH2O) 30 09/18/24840 Tube Securement Date 09/16/24 09/17/24 1458 Bite Block none 09/18/24 08 Manual Resuscitator at bedside Yes 09/18/24840 Arterial [...] POC 163 65 - 199 mg/dL Imaging: [facility] 09/16 Interval expansion of now large right-sided [...] QTC Calculated (Bezet) 446 ms Calculated P Meridian 36 degrees Calculated R Mer[place] -17 degrees Calculated T Mer[place] 28 degrees INTERPRETATION Normal sinus rhythm Normal [...] 10/ CABA post watchman procedure found to havea [...] DHT in place for enteral nutrition -ongoing BAG MACHINE ADJUSTER evaluation: currently NPO -anticipate PEG placement - [...] Dispo: [facility] ADRIANA Pace 09/28/2024 [facility] pager #[phone] * Dheeraj Moreira - 09/28/2024 1:19 PM EST [facility] [employer] Encounter Note Patient Name: Lucero Bruno : [id number] MR#: [id number] Admit Date: 09/16/2024 10:06 AM Hospital Day 12 days Narrative:Visited to introduce and assess acceptance of [facility] [employer] services. Assessment:Family coping positively with stresses of illness/hospitalization at this time. I met with patient two friends in [facility] and patient has family care and support. Family is taking one day at time and shared that she is getting better slowly. Intervention and Outcome:Provided emotional, spiritual support and listening presence. [facility] [employer] services accepted. Conversation to build trusting relationship. Provided pastoral presence. Provided spiritual guidance. Follow-up: yes Time in Direct Care:04 Mins Dheeraj Moreira 09/28/2024 * Areli Hathaway, BAG MACHINE ADJUSTER - 09/28/2024 12:58 PM EST Speech Therapy Note Patient Profile: Lucero Bruno is a 74 y.o. female with PMHx of A-fib, CHRISTOPHER, HLD, and prior IPH (04/2024) who [place] [facility] for placement of Watchman with cardiology. She developed headaches and nausea post-operatively and was found to have a large R scagujje-tcalbhg-mqpmcqucs IPH, now s/p craniotomy. Patient was intubated from 09/16-09/21 with extubation complicated by stridor requiring re-intubation from 09/21-09/26 (11 days total). BAG MACHINE ADJUSTER has been following since 09/27 for communication [...] Comments Thin liquids X Water via swab Malmo thick liquids Honey thick liquids Pureed solids Dysphagia soft Mechanical soft Regular solids Pills X Ice chips, Greek ice Other Oral Preparatory Phase Mastication: N/A [...] throat clear: Throat clearing with 25% of Greek ice trials, none with single ice chips [...] of ice chips, water via swabs, and Greek ice. She benefited from verbal cues for physical orientationdue to preexisting visual field cuts and/or inattention. Aubree's swallow was characterized by minimal lingual movements with eventual swallow initiation following a prolonged period of oral holding. She presented with inconsistent signs of aspiration (coughing) with Greek ice and none with small amounts of [...] safe swallowing strategies. NEW Plan: Therapy Frequency (BAG MACHINE ADJUSTER Eval): 3-5 times/wk Patient is in agreement with the plan of care. Total Minutes (Speech Language Pathology): 40 Areli Hathaway MS, CCC-BAG MACHINE ADJUSTER Speech-Language Pathologist Inpatient Rehabilitation Pager # [phone] * Diana Lucas OT - 09/28/2024 11:50 AM EST Occupational Therapy Treatment Note Treatment Number OT: 2 Patient Dx:Lucero Bruno is a 74 y.o. female admitted on 09/16/2024. 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 who presented [place] [facility] [place] watchman procedure subsequently developing a [...] PRN 09/16/242204 Unscheduled Up with assistance PRN 09/16/24 220 Interval History: 09/26 extubated S: Pt received [...] and therapy goals Anticipated Discharge Disposition (OT): residential facility Equipment Recommendations: Equipment Needs Upon Discharge [...] 2-3 times/wk Total Minutes, Occupational Therapy: 34 ([id number]) Diana Lucas OTR/L They/Them Occupational Therapy Rehabilitation Department Pager # [phone] * Areli Hathaway BAG MACHINE ADJUSTER - 09/28/2024 11:00 AM EST Speech Pathology Contact Note Chart reviewed. Attempted to see patient for dysphagia management; however, shortly into our session she became tachycardic and RN requested we defer. We will follow up on next treatment date as schedule allows. Please secure chat with questions, thanks! Areli Hathaway MS, CCC-BAG MACHINE ADJUSTER Speech-Language Pathologist Inpatient Rehabilitation Pager # [phone] * Librado Patel MD - 09/28/2024 9:59 [...] flushed without difficulty 09/27/241199 Phlebitis 0-->no symptoms 09/27/24 1200 Infiltration 0-->no symptoms 09/27/241199 Site Signs/Symptoms no [...] 160 09/27/24799 General Output (mL) 0 09/26/24 040 Net Naso/Oral Volume (mL) 30 (mL) 09/27/24 1200 Incision 09/16/24 Right parietal region other (see comments) (Active) Incision WDL 09/27/24799 Dressing Appearance dry;intact 09/27/24799 Appearance stacey intact;no drainage;no redness;no swelling;no tenderness;no warmth 09/26/24799 Drainage Characteristics/Odor serosanguineous 10/29/24 0730 Drainage Amount none 09/26/24 0800 Dressing open to air 09/27/24 0800 Output (mL) 0 09/26/24 0800 Labs: No results found for: PHART, PO2ART, GVH7UNC Recent Labs 09/28/24 0358 WBC 35.37* RBC [...] con't suctioning prn FEN/Renal: - NPO per BAG MACHINE ADJUSTER - TF GI: diarrhea/con't rectal tube ID: [...] Guzman MD - 09/28/2024 7:17 AM EST [facility] NEUROSURGERY PROGRESS NOTE ID: Lucero Bruno 74 [...] 09/16/2024 5:26 PM) Result Value WORKSTATION ID [id number] Impression Interval expansion of now large right-sided [...] who have questions please contact the health customer care agent that requested your imaging first. Electronically signed by: Lana Reinoso, [facility] ([phone]), at 09/16/2024 6:[address] Head wo Contrast (Generic) (Exam End: 09/16/2024 11:21 PM) Result Value WORKSTATION ID [id number] Impression CT head: 1. Interval craniotomy with [...] who have questions please contact the health customer care agent that requested your imaging first. Electronically signed by: Armando Pan MD, [facility] ([phone]), at 09/17/2024 1:[address] Venogram Brain (Exam End: 09/16/2024 11:21 PM) Result Value WORKSTATION ID [id number] Impression CT head: 1. Interval craniotomy with [...] who have questions please contact the health customer care agent that requested your imaging first. Electronically signed by: Armando Pan MD, [facility] ([phone]), at 09/17/2024 1:42 AM XR Chest One View (Exam End: 09/16/2024 11:00 PM) Result Value WORKSTATION ID [id number] Impression Satisfactorily positioned enteric and endotracheal tubes. Left lower lobe atelectasis versus pneumonia. Thank you for letting us participate in the care of this patient. If you are a health care provider and have any questions regarding this report, please contact the number below. For patients who have questions please contact the health customer care agent that requested your imaging first. Electronically signed by: Pamela Beard MD, [facility] ([phone]), at 09/17/2024 12:09 AM XR Abdomen 1 view (Generic) (Exam End: 09/16/2024 11:00 PM) Result Value WORKSTATION ID [id number] Impression Satisfactorily positioned enteric and endotracheal tubes. Left lower lobe atelectasis versus pneumonia. Thank you for letting us participate in the care of this patient. If you are a health care provider and have any questions regarding this report, please contact the number below. For patients who have questions please contact the health customer care agent that requested your imaging first. Electronically signed by: Pamela Beard MD, [facility] ([phone]), at 09/17/2024 12:[address] Head wo Contrast (Generic) (Exam End: 09/17/2024 4:51 AM) Result Value WORKSTATION ID [id number] Impression Increased size and density of dominant [...] who have questions please contact the health customer care agent that requested your imaging first. Electronically signed by: Elvin Bolden DO, [facility] ([phone]), at 09/17/2024 8:38 AM XR Chest One View (Exam End: 09/17/2024 2:13 PM) Result Value WORKSTATION ID [id number] Impression 1. No focal opacity in lung [...] who have questions please contact the health customer care agent that requested your imaging first. Electronically signed by: [facility] ([phone]), at 09/17/2024 2:43 PM XR Chest One View (Exam End: 09/18/2024 8:43 AM) Result Value WORKSTATION ID [id number] Impression Tubes and lines as described. Blunting of the left costophrenic angle suggests tiny layering left effusion with associated left basilar consolidation/atelectasis Thank you for letting us participate in the care of this patient. If you are a health care provider and have any questions regarding this report, please contact the number below. For patients who have questions please contact the health customer care agent that requested your imaging first. Electronically signed by: Arie Bhat [facility] ([phone]), at 09/18/2024 9:29 AM XR Abdomen 1 view (Generic) (Exam End: 09/18/2024 12:31 PM) Result Value WORKSTATION ID [id number] Impression Dobbhoff tube tip along the greater curve of the stomach. Thank you for letting us participate in the care of this patient. If you are a health care provider and have any questions regarding this report, please contact the number below. For patients who have questions please contact the health customer care agent that requested your imaging first. Electronically signed by: Arie Bhat [facility] ([phone]), at 09/18/2024 1:05 PM MRI Brain wwo Contrast (Generic) (Exam End: 09/19/2024 5:43 PM) Result Value WORKSTATION ID [id number] Impression Unchanged size of large right cerebral hemisphere ICH status post partial evacuation. Numerous small foci of decreased acute infarction both along and separate from the site of hemorrhage. These foci are present in both cerebral hemispheres and have a pattern most consistent with embolic infarction. No evidence of NEON MOLDER malignancy Thank you for letting us participate in the care of this patient. If you are a health care provider and have any questions regarding this report, please contact the number below. For patients who have questions please contact the health customer care agent that requested your imaging first. Electronically signed by: Rios Swartz MD, [facility] ([phone]), at 09/20/2024 8:[address] Head wo Contrast (Generic) (Exam End: 09/21/2024 3:50 AM) Result Value WORKSTATION ID [id number] Impression Stable hemorrhage right temporal, parietal, right [...] who have questions please contact the health customer care agent that requested your imaging first. Electronically signed by: Armando Pan MD, [facility] ([phone]), at 09/21/2024 4:55 AM XR Abdomen 1 view (Generic) (Exam End: 09/21/2024 2:01 PM) Result Value WORKSTATION ID [id number] Impression Dobbhoff tube and enteric tube sidehole [...] who have questions please contact the health customer care agent that requested your imaging first. Electronically signed by: Shraddha Cox MD, [facility] ([phone]), at 09/21/2024 3:40 PM XR Chest One View (Exam End: 09/21/2024 2:01 PM) Result Value WORKSTATION ID [id number] Impression ET tube with tip projecting approximately [...] who have questions please contact the health customer care agent that requested your imaging first. Electronically signed by: Octavio Scott MD, [facility] ([phone]), at 09/21/2024 5:[address] Head wo Contrast (Generic) (Exam End: 09/22/2024 4:02 AM) Result Value WORKSTATION ID [id number] Impression Stable head CT status post removal of subcutaneous drain. No new or enlarging hemorrhage. Stable pattern of mass effect Thank you for letting us participate in the care of this patient. If you are a health care provider and have any questions regarding this report, please contact the number below. For patients who have questions please contact the health customer care agent that requested your imaging first. Electronically signed by: Armando Pan MD, [facility] ([phone]), at 09/22/2024 4:[address] Angiogram Chest for Pulmonary Embolus w Contrast (Exam End: 09/26/2024 1:37 PM) Result Value WORKSTATION ID [id number] Impression 1. No pulmonary embolism. 2. Pulmonary [...] who have questions please contact the health customer care agent that requested your imaging first. Electronically signed by: Marvin Decker DO, [facility] ([phone]), at 09/26/2024 1:[address] Head wo Contrast (Generic) (Exam End: 09/26/2024 1:37 PM) Result Value WORKSTATION ID [id number] Impression 1. Stable right-sided parenchymal and subdural [...] who have questions please contact the health customer care agent that requested your imaging first. Electronically signed by: Smiley Cordova MD, [facility] ([phone]), at 09/26/2024 2:[address] Abdomen & Pelvis w Contrast (Exam End: 09/26/2024 1:37 PM) Result Value WORKSTATION ID [id number] Impression 1. No pulmonary embolism. 2. Pulmonary [...] who have questions please contact the health customer care agent that requested your imaging first. Electronically signed by: Marvin Decker DO [facility] ([phone]), at 09/26/2024 1:54 PM XR Chest One View (Exam End: 09/28/2024 4:06 AM) Result Value WORKSTATION ID [id number] Impression 1. Limited examination. 2. Interval removal [...] who have questions please contact the health customer care agent that requested your imaging first. Electronically signed by: Marvin Decker DO [facility] ([phone]), at 09/28/2024 4:12 AM Assessment: 74 y.o. female with PMHx notable for Afib (taking ASA, previously on apixaban-stopped taking after IPH in April 2024), CHRISTOPHER, HLD, BMI of 36, prior IPH 04/2024 who presented to hospital 09/16/24 for placement of Watchman with cardiology. She developed headaches and nausea post op and CT scan noted large R wlmreqpa-ucjrmhg-cojimgwed IPH. 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 * Abdulkadir Llaa RN - 09/27/2024 8:03 PM EST Provider notified of pupillometer showing L>R by 1mm and sluggish response Lft * Diana Cárdenas RD - 09/27/2024 5:05 PM EST Nutrition Progress Note Lucero Bruno is a 74 y.o. 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 [id number] . Current Nutrition Regimen: Active Orders Diet [...] potassium chloride ER OR potassium chloride ER, yfbyhrs13% oral geL OR dextrose OR glucagon, bisacodyL, bacitracin zinc-polymyxin B, gelatin compressed, thrombin (Bovine) Anthropometrics: Admit Weight: 88.45 kg Estimated body mass index is 38.41 kg/m?? as calculated from the following: Height as of 09/21/24: 152.4 cm (5'). Weight as of this encounter: 89.2 kg (196 lb 10.4 oz). [place] Body Weight (IBW) (kg): 45.45 Wt Readings [...] identified (Maribel, JPEN J Parenteral Enteral Nutr. 2012 March; 36(3): 273-83) Nutrition to continue to follow up while inpatient Thank you, Diana Cárdenas RDN, LD, [facility] Clinical Nutrition * Danielle Cosby [facility] - 09/27/2024 4:50 PM EST 09/27/24 1600 [...] Guzman MD - 09/27/2024 2:08 PM EST [facility] NEUROSURGERY PROGRESS NOTE ID: Lucero Bruno 74 [...] Incision CDI - stacey LABS: Recent Labs 09/27/24 0138 09/26/24 0031 09/25/24 0429 WBC 39.03* 30.94* 27.24* HGB 12.5 10.7* 10.5* PLATELET 510* 434* 379* Recent Labs 09/27/24 0138 09/26/24 1216 09/26/24 0635 09/26/24 0031 NA 139 -- 137 137 K 3.8 4.2 3.7 3.7 CL 103 -- 104 104 CO2 25 -- 23 23 BUN 17 -- 23* 26* CREATININE 0.51* -- 0.53* 0.56* No results for input(s): PT, INR in the last 72 hours. IMAGING: Results for orders placed or performed during the hospital encounter of 10/24/24 CT Head wo Contrast (Generic) (Exam End: 09/16/2024 5:26 PM) Result Value WORKSTATION ID [id number] Impression Interval expansion of now large right-sided [...] who have questions please contact the health customer care agent that requested your imaging first. Electronically signed by: Lana Reinoso [facility] ([phone]), at 09/16/2024 6:[address] Head wo Contrast (Generic) (Exam End: 09/16/2024 11:21 PM) Result Value WORKSTATION ID [id number] Impression CT head: 1. Interval craniotomy with [...] who have questions please contact the health customer care agent that requested your imaging first. Electronically signed by: Armando Pan MD, [facility] ([phone]), at 09/17/2024 1:[address] Venogram Brain (Exam End: 09/16/2024 11:21 PM) Result Value WORKSTATION ID [id number] Impression CT head: 1. Interval craniotomy with [...] who have questions please contact the health customer care agent that requested your imaging first. Electronically signed by: Armando Pan MD, [facility] ([phone]), at 09/17/2024 1:42 AM XR Chest One View (Exam End: 09/16/2024 11:00 PM) Result Value WORKSTATION ID [id number] Impression Satisfactorily positioned enteric and endotracheal tubes. Left lower lobe atelectasis versus pneumonia. Thank you for letting us participate in the care of this patient. If you are a health care provider and have any questions regarding this report, please contact the number below. For patients who have questions please contact the health customer care agent that requested your imaging first. Electronically signed by: Pamela Beard MD, [facility] ([phone]), at 09/17/2024 12:09 AM XR Abdomen 1 view (Generic) (Exam End: 09/16/2024 11:00 PM) Result Value WORKSTATION ID [id number] Impression Satisfactorily positioned enteric and endotracheal tubes. Left lower lobe atelectasis versus pneumonia. Thank you for letting us participate in the care of this patient. If you are a health care provider and have any questions regarding this report, please contact the number below. For patients who have questions please contact the health customer care agent that requested your imaging first. Electronically signed by: Pamela Beard MD, [facility] ([phone]), at 09/17/2024 12:[address] Head wo Contrast (Generic) (Exam End: 09/17/2024 4:51 AM) Result Value WORKSTATION ID [id number] Impression Increased size and density of dominant [...] who have questions please contact the health customer care agent that requested your imaging first. Electronically signed by: Elvin Bolden DO, [facility] ([phone]), at 09/17/2024 8:38 AM XR Chest One View (Exam End: 09/17/2024 2:13 PM) Result Value WORKSTATION ID [id number] Impression 1. No focal opacity in lung [...] who have questions please contact the health customer care agent that requested your imaging first. Electronically signed by: Zoey Zabala MD, [facility] ([phone]), at 09/17/2024 2:43 PM XR Chest One View (Exam End: 09/18/2024 8:43 AM) Result Value WORKSTATION ID [id number] Impression Tubes and lines as described. Blunting of the left costophrenic angle suggests tiny layering left effusion with associated left basilar consolidation/atelectasis Thank you for letting us participate in the care of this patient. If you are a health care provider and have any questions regarding this report, please contact the number below. For patients who have questions please contact the health customer care agent that requested your imaging first. Electronically signed by: Arie Bhat, [facility] ([phone]), at 09/18/2024 9:29 AM XR Abdomen 1 view (Generic) (Exam End: 09/18/2024 12:31 PM) Result Value WORKSTATION ID [id number] Impression Dobbhoff tube tip along the greater curve of the stomach. Thank you for letting us participate in the care of this patient. If you are a health care provider and have any questions regarding this report, please contact the number below. For patients who have questions please contact the health customer care agent that requested your imaging first. Electronically signed by: Arie Bhat [facility] ([phone]), at 09/18/2024 1:05 PM MRI Brain wwo Contrast (Generic) (Exam End: 09/19/2024 5:43 PM) Result Value WORKSTATION ID [id number] Impression Unchanged size of large right cerebral hemisphere ICH status post partial evacuation. Numerous small foci of decreased acute infarction both along and separate from the site of hemorrhage. These foci are present in both cerebral hemispheres and have a pattern most consistent with embolic infarction. No evidence of NEON MOLDER malignancy Thank you for letting us participate in the care of this patient. If you are a health care provider and have any questions regarding this report, please contact the number below. For patients who have questions please contact the health customer care agent that requested your imaging first. Electronically signed by: Rios Swartz MD, [facility] ([phone]), at 09/20/2024 8:[address] Head wo Contrast (Generic) (Exam End: 09/21/2024 3:50 AM) Result Value WORKSTATION ID [id number] Impression Stable hemorrhage right temporal, parietal, right [...] who have questions please contact the health customer care agent that requested your imaging first. Electronically signed by: Armando Pan MD, [facility] ([phone]), at 09/21/2024 4:55 AM XR Abdomen 1 view (Generic) (Exam End: 09/21/2024 2:01 PM) Result Value WORKSTATION ID [id number] Impression Dobbhoff tube and enteric tube sidehole [...] who have questions please contact the health customer care agent that requested your imaging first. Electronically signed by: Shraddha Cox MD, [facility] ([phone]), at 09/21/2024 3:40 PM XR Chest One View (Exam End: 09/21/2024 2:01 PM) Result Value WORKSTATION ID [id number] Impression ET tube with tip projecting approximately [...] who have questions please contact the health customer care agent that requested your imaging first. Electronically signed by: Octavio Scott MD, [facility] ([phone]), at 09/21/2024 5:[address] Head wo Contrast (Generic) (Exam End: 09/22/2024 4:02 AM) Result Value WORKSTATION ID [id number] Impression Stable head CT status post removal of subcutaneous drain. No new or enlarging hemorrhage. Stable pattern of mass effect Thank you for letting us participate in the care of this patient. If you are a health care provider and have any questions regarding this report, please contact the number below. For patients who have questions please contact the health customer care agent that requested your imaging first. Electronically signed by: Armando Pan MD, [facility] ([phone]), at 09/22/2024 4:[address] Angiogram Chest for Pulmonary Embolus w Contrast (Exam End: 09/26/2024 1:37 PM) Result Value WORKSTATION ID [id number] Impression 1. No pulmonary embolism. 2. Pulmonary [...] who have questions please contact the health customer care agent that requested your imaging first. Electronically signed by: Marvin Decker DO, [facility] ([phone]), at 09/26/2024 1:[address] Head wo Contrast (Generic) (Exam End: 09/26/2024 1:37 PM) Result Value WORKSTATION ID [id number] Impression 1. Stable right-sided parenchymal and subdural [...] who have questions please contact the health customer care agent that requested your imaging first. Electronically signed by: Smiley Cordova MD, [facility] ([phone]), at 09/26/2024 2:[address] Abdomen & Pelvis w Contrast (Exam End: 09/26/2024 1:37 PM) Result Value WORKSTATION ID [id number] Impression 1. No pulmonary embolism. 2. Pulmonary [...] who have questions please contact the health customer care agent that requested your imaging first. Electronically signed by: Marvin Decker DO, [facility] ([phone]), at 09/26/2024 1:54 PM Assessment: 74 y.o. female with PMHx notable for Afib (taking ASA, previously on apixaban-stopped taking after IPH in April 2024), CHRISTOPHER, HLD, BMI of 36, prior IPH 04/2024 who presented to hospital 09/16/24 for placement of Watchman with cardiology. She developed headaches and nausea post op and CT scan noted large R crgzwjei-jhpeaja-zjbdeghwn IPH. 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 pager [phone] Rob Guzman MD Clinical Documentation Improvement: Active [...] BP (Arterial Line): -- Intake/Output: I/O 09/24 0709/25 0709/25 0709/26 0709/26 0709/27 0709/27 0701 09/28 [...] 160 09/27/24799 General Output (mL) 0 09/26/24 040 Net Naso/Oral Volume (mL) 30 (mL) 09/27/24 1200 Incision 09/16/24 Right parietal region other (see comments) (Active) Incision WDL 09/27/24799 Dressing Appearance dry;intact 09/27/24799 Appearance stacey intact;no drainage;no redness;no swelling;no tenderness;no warmth 09/26/24799 Drainage Characteristics/Odor serosanguineous 09/21/24729 Drainage Amount none 09/26/24799 Dressing open to air 09/27/24799 Output (mL) 0 09/26/24799 Labs: No results found for: PHART, PO2ART, ORF9WAJ Recent Labs 09/27/24 013 WBC 39.03* RBC 4.12 HGB 12.5 HCT 37.4 MCV 90.8 MCH 30.3 MCHC 33.4 PLATELET 510* RDWCV 13.3 Recent Labs 09/27/24 013 NA 139 K 3.8 CL 103 CO2 [...] con't suctioning prn FEN/Renal: - NPO per BAG MACHINE ADJUSTER - TF - hill for UOP monitoring [...] be 2/2 to CAA who [place] [facility] [place] subsequently developing a large [...] in all aspects. 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 [...] plan as stated. Time IN / OUT: 8676-8667 Total Minutes, Physical Therapy: 22 Billing Code: TEF1 Kymberly Baptiste PT, DPT, NCS Pager: [phone] Physical Therapy Inpatient Rehabilitation Department * Ihsan Winston, [facility] - 09/26/2024 6:14 PM EST Illness Severity [...] EST ICU PROGRESS NOTE DOA: 09/16/2024 Room: [address] [place] [address] Length of Stay: 10 ICU Length of Stay 9d 11h Lucero Bruno ( ) is a 74 y.o. 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 Last 3 TFT Recent Labs 06/13/24 0548 TSH 0.99 Last 3 Lipids Recent [...] Kinney MD - 09/26/2024 7:40 AM EST [facility] NEUROSURGERY PROGRESS NOTE ID: Lucero Bruno 74 y.o. female : 1950 LOS: 10 Neurosurgical Procedures this Admission: 09/16/24, Dr. Espinal: Mary craniotomy for IPH evacuation INTERVAL Hx: -KARL [...] ??C (99.3 ??F)] Heart Rate: [45-109] Resp: [9-] BP: (73-157)/(32-101) SpO2: [90 %-99 %] Heart [...] 09/16/2024 5:26 PM) Result Value WORKSTATION ID [id number] Impression Interval expansion of now large right-sided [...] who have questions please contact the health customer care agent that requested your imaging first. Head wo Contrast (Generic) (Exam End: 09/16/2024 11:21 PM) Result Value WORKSTATION ID [id number] Impression CT head: 1. Interval craniotomy with [...] who have questions please contact the health customer care agent that requested your imaging first. Electronically signed by: Armando Pan MD, [facility] ([phone]), at 09/17/2024 1:[address] Venogram Brain (Exam End: 09/16/2024 11:21 PM) Result Value WORKSTATION ID [id number] Impression CT head: 1. Interval craniotomy with [...] who have questions please contact the health customer care agent that requested your imaging first. Electronically signed by: Armando Pan MD, [facility] ([phone]), at 09/17/2024 1:42 AM XR Chest One View (Exam End: 09/16/2024 11:00 PM) Result Value WORKSTATION ID [id number] Impression Satisfactorily positioned enteric and endotracheal tubes. Left lower lobe atelectasis versus pneumonia. Thank you for letting us participate in the care of this patient. If you are a health care provider and have any questions regarding this report, please contact the number below. For patients who have questions please contact the health customer care agent that requested your imaging first. Electronically signed by: Pamela Beard MD, [facility] ([phone]), at 09/17/2024 12:09 AM XR Abdomen 1 view (Generic) (Exam End: 09/16/2024 11:00 PM) Result Value WORKSTATION ID [id number] Impression Satisfactorily positioned enteric and endotracheal tubes. Left lower lobe atelectasis versus pneumonia. Thank you for letting us participate in the care of this patient. If you are a health care provider and have any questions regarding this report, please contact the number below. For patients who have questions please contact the health customer care agent that requested your imaging first. Electronically signed by: [facility] ([phone]), at 09/17/2024 12:[address] Head wo Contrast (Generic) (Exam End: 09/17/2024 4:51 AM) Result Value WORKSTATION ID [id number] Impression Increased size and density of dominant [...] who have questions please contact the health customer care agent that requested your imaging first. Electronically signed by: Elvin Bolden DO, [facility] ([phone]), at 09/17/2024 8:38 AM XR Chest One View (Exam End: 09/17/2024 2:13 PM) Result Value WORKSTATION ID [id number] Impression 1. No focal opacity in lung [...] who have questions please contact the health customer care agent that requested your imaging first. Electronically signed by: Zoey Zabala MD, [facility] ([phone]), at 09/17/2024 2:43 PM XR Chest One View (Exam End: 09/18/2024 8:43 AM) Result Value WORKSTATION ID [id number] Impression Tubes and lines as described. Blunting of the left costophrenic angle suggests tiny layering left effusion with associated left basilar consolidation/atelectasis Thank you for letting us participate in the care of this patient. If you are a health care provider and have any questions regarding this report, please contact the number below. For patients who have questions please contact the health customer care agent that requested your imaging first. Abdomen 1 view (Generic) (Exam End: 09/18/2024 12:31 PM) Result Value WORKSTATION ID [id number] Impression Dobbhoff tube tip along the greater curve of the stomach. Thank you for letting us participate in the care of this patient. If you are a health care provider and have any questions regarding this report, please contact the number below. For patients who have questions please contact the health customer care agent that requested your imaging first. Electronically signed by: Arie Bhat [facility] ([phone]), at 09/18/2024 1:05 PM MRI Brain wwo Contrast (Generic) (Exam End: 09/19/2024 5:43 PM) Result Value WORKSTATION ID [id number] Impression Unchanged size of large right cerebral hemisphere ICH status post partial evacuation. Numerous small foci of decreased acute infarction both along and separate from the site of hemorrhage. These foci are present in both cerebral hemispheres and have a pattern most consistent with embolic infarction. No evidence of NEON MOLDER malignancy Thank you for letting us participate in the care of this patient. If you are a health care provider and have any questions regarding this report, please contact the number below. For patients who have questions please contact the health customer care agent that requested your imaging first. Electronically signed by: Rios Swartz MD, [facility] ([phone]), at 09/20/2024 8:[address] Head wo Contrast (Generic) (Exam End: 09/21/2024 3:50 AM) Result Value WORKSTATION ID [id number] Impression Stable hemorrhage right temporal, parietal, right [...] who have questions please contact the health customer care agent that requested your imaging first. Electronically signed by: Armando Pan MD, [facility] ([phone]), at 09/21/2024 4:55 AM XR Abdomen 1 view (Generic) (Exam End: 09/21/2024 2:01 PM) Result Value WORKSTATION ID [id number] Impression Dobbhoff tube and enteric tube sidehole [...] who have questions please contact the health customer care agent that requested your imaging first. Electronically signed by: Shraddha Cox MD, [facility] ([phone]), at 09/21/2024 3:40 PM XR Chest One View (Exam End: 09/21/2024 2:01 PM) Result Value WORKSTATION ID [id number] Impression ET tube with tip projecting approximately [...] who have questions please contact the health customer care agent that requested your imaging first. Electronically signed by: Octavio Scott MD, [facility] ([phone]), at 09/21/2024 5:[address] Head wo Contrast (Generic) (Exam End: 09/22/2024 4:02 AM) Result Value WORKSTATION ID [id number] Impression Stable head CT status post removal of subcutaneous drain. No new or enlarging hemorrhage. Stable pattern of mass effect Thank you for letting us participate in the care of this patient. If you are a health care provider and have any questions regarding this report, please contact the number below. For patients who have questions please contact the health customer care agent that requested your imaging first. Electronically signed by: Armando Pan MD, [facility] ([phone]), at 09/22/2024 4:31 AM Assessment: 74 y.o. female with PMHx notable for Afib (taking ASA, previously on apixaban-stopped taking after IPH in April 2024), CHRISTOPHER, HLD, BMI of 36, prior IPH 04/2024 who presented to hospital 09/16/24 for placement of Watchman with cardiology. She developed headaches and nausea post op and CT scan noted large R wvsfcwja-kshokwj-qmfsdzgkq IPH. Now s/p R craniotomy for IPH [...] primary For questions please call NS[facility] pager [phone] Brianne Kinney MD Clinical Documentation Improvement: Active [...] Kinney MD - 09/25/2024 3:30 PM EDT [facility] NEUROSURGERY PROGRESS NOTE ID: Lucero Bruno 74 [...] to command L hemianesthesia Incision CDI - stcaey LABS: Recent Labs 09/25/2442809/24/24 0500 09/23/24 0101 [...] 09/16/2024 5:26 PM) Result Value WORKSTATION ID [id number] Impression Interval expansion of now large right-sided [...] who have questions please contact the health customer care agent that requested your imaging first. Electronically signed by: Lana Reinoso [facility] ([phone]), at 09/16/2024 6:[address] Head wo Contrast (Generic) (Exam End: 09/16/2024 11:21 PM) Result Value WORKSTATION ID [id number] Impression CT head: 1. Interval craniotomy with [...] who have questions please contact the health customer care agent that requested your imaging first. Electronically signed by: Armando Pan MD, [facility] ([phone]), at 09/17/2024 1:[address] Venogram Brain (Exam End: 09/16/2024 11:21 PM) Result Value WORKSTATION ID [id number] Impression CT head: 1. Interval craniotomy with [...] who have questions please contact the health customer care agent that requested your imaging first. Electronically signed by: Armando Pan MD, [facility] ([phone]), at 09/17/2024 1:42 AM XR Chest One View (Exam End: 09/16/2024 11:00 PM) Result Value WORKSTATION ID [id number] Impression Satisfactorily positioned enteric and endotracheal tubes. Left lower lobe atelectasis versus pneumonia. Thank you for letting us participate in the care of this patient. If you are a health care provider and have any questions regarding this report, please contact the number below. For patients who have questions please contact the health customer care agent that requested your imaging first. Electronically signed by: Pamela Beard MD, [facility] ([phone]), at 09/17/2024 12:09 AM XR Abdomen 1 view (Generic) (Exam End: 09/16/2024 11:00 PM) Result Value WORKSTATION ID [id number] Impression Satisfactorily positioned enteric and endotracheal tubes. Left lower lobe atelectasis versus pneumonia. Thank you for letting us participate in the care of this patient. If you are a health care provider and have any questions regarding this report, please contact the number below. For patients who have questions please contact the health customer care agent that requested your imaging first. Electronically signed by: Pamela Beard MD, [facility] ([phone]), at 09/17/2024 12:[address] Head wo Contrast (Generic) (Exam End: 09/17/2024 4:51 AM) Result Value WORKSTATION ID [id number] Impression Increased size and density of dominant [...] who have questions please contact the health customer care agent that requested your imaging first. Electronically signed by: Elvin Bolden DO, [facility] ([phone]), at 09/17/2024 8:38 AM XR Chest One View (Exam End: 09/17/2024 2:13 PM) Result Value WORKSTATION ID [id number] Impression 1. No focal opacity in lung [...] who have questions please contact the health customer care agent that requested your imaging first. Electronically signed by: Zoey Zabala MD, [facility] ([phone]), at 09/17/2024 2:43 PM XR Chest One View (Exam End: 09/18/2024 8:43 AM) Result Value WORKSTATION ID [id number] Impression Tubes and lines as described. Blunting of the left costophrenic angle suggests tiny layering left effusion with associated left basilar consolidation/atelectasis Thank you for letting us participate in the care of this patient. If you are a health care provider and have any questions regarding this report, please contact the number below. For patients who have questions please contact the health customer care agent that requested your imaging first. Electronically signed by: Arie Bhat, [facility] ([phone]), at 09/18/2024 9:29 AM XR Abdomen 1 view (Generic) (Exam End: 09/18/2024 12:31 PM) Result Value WORKSTATION ID [id number] Impression Dobbhoff tube tip along the greater curve of the stomach. Thank you for letting us participate in the care of this patient. If you are a health care provider and have any questions regarding this report, please contact the number below. For patients who have questions please contact the health customer care agent that requested your imaging first. Electronically signed by: Arie Bhat, [facility] ([phone]), at 09/18/2024 1:05 PM MRI Brain wwo Contrast (Generic) (Exam End: 09/19/2024 5:43 PM) Result Value WORKSTATION ID [id number] Impression Unchanged size of large right cerebral hemisphere ICH status post partial evacuation. Numerous small foci of decreased acute infarction both along and separate from the site of hemorrhage. These foci are present in both cerebral hemispheres and have a pattern most consistent with embolic infarction. No evidence of NEON MOLDER malignancy Thank you for letting us participate in the care of this patient. If you are a health care provider and have any questions regarding this report, please contact the number below. For patients who have questions please contact the health customer care agent that requested your imaging first. Electronically signed by: Rios Swartz MD, [facility] ([phone]), at 09/20/2024 8:[address] Head wo Contrast (Generic) (Exam End: 09/21/2024 3:50 AM) Result Value WORKSTATION ID [id number] Impression Stable hemorrhage right temporal, parietal, right [...] who have questions please contact the health customer care agent that requested your imaging first. Electronically signed by: Armando Pan MD, [facility] ([phone]), at 09/21/2024 4:55 AM XR Abdomen 1 view (Generic) (Exam End: 09/21/2024 2:01 PM) Result Value WORKSTATION ID [id number] Impression Dobbhoff tube and enteric tube sidehole [...] who have questions please contact the health customer care agent that requested your imaging first. Electronically signed by: Shraddha Cox MD, [facility] ([phone]), at 09/21/2024 3:40 PM XR Chest One View (Exam End: 09/21/2024 2:01 PM) Result Value WORKSTATION ID [id number] Impression ET tube with tip projecting approximately [...] who have questions please contact the health customer care agent that requested your imaging first. Electronically signed by: Octavio Scott MD, [facility] ([phone]), at 09/21/2024 5:[address] Head wo Contrast (Generic) (Exam End: 09/22/2024 4:02 AM) Result Value WORKSTATION ID [id number] Impression Stable head CT status post removal of subcutaneous drain. No new or enlarging hemorrhage. Stable pattern of mass effect Thank you for letting us participate in the care of this patient. If you are a health care provider and have any questions regarding this report, please contact the number below. For patients who have questions please contact the health customer care agent that requested your imaging first. Electronically signed by: Armando Pan MD, [facility] ([phone]), at 09/22/2024 4:31 AM Assessment: 74 y.o. female with PMHx notable for Afib (taking ASA, previously on apixaban-stopped taking after IPH in April 2024), CHRISTOPHER, HLD, BMI of 36, prior IPH 04/2024 who presented to hospital 09/16/24 for placement of Watchman with cardiology. She developed headaches and nausea post op and CT scan noted large R jbfsujls-qbghplj-ocmtyfhpf IPH. Now s/p R craniotomy for IPH [...] care per primary For questions please call [employer] pager [phone] Brianne Kinney MD Clinical Documentation Improvement: Active Hospital Problems Diagnosis Presence of Watchman left atrial appendage closure device Resolved Hospital Problems No resolved problems to display. Associated attestation - Sushila Espinal MD - 09/25/2024 4:09 PM EDT I was the attending physician supervising the resident in the above care. I agree with the history,physical exam, assessment, and plan. Sushila Espinal MD PhD Sales Host Section of Neurosurgery Department of Surgery [facility] [email or web address] * Mariola Calixto MD - 09/25/2024 10:09 AM EDT ICU PROGRESS NOTE DOA: 09/16/2024 Room: [address] [place], [place] [address]A Length of Stay: 9 ICU Length of Stay 8d 12h Lucero Bruno ( ) is a 74 y.o. 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 ICH 2/ CAA + AC - q2 neurochecks - [...] y.o. Code Status: FULL. HPI: Presents to [facility] [place] and developed a large [...] EDT ICU PROGRESS NOTE DOA: 09/16/2024 Room: [address] [place], [place] [address] Length of Stay: 8 ICU Length of Stay 7d 11h Lucero Bruno ( ) is a 74 y.o. 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 who presented [place] [facility] [place] watchman procedure subsequently developing a [...] 12.8* 12.1 INR 1.1 1.1 1.1 PTT 25 26 Last 3 TFT Recent Labs 05/06/24 0548 [...] Guzman MD - 09/24/2024 6:58 AM EDT [facility] NEUROSURGERY PROGRESS NOTE ID: Lucero Bruno 74 [...] 09/16/2024 5:26 PM) Result Value WORKSTATION ID [id number] Impression Interval expansion of now large right-sided [...] who have questions please contact the health customer care agent that requested your imaging first. Head wo Contrast (Generic) (Exam End: 09/16/2024 11:21 PM) Result Value WORKSTATION ID [id number] Impression CT head: 1. Interval craniotomy with [...] who have questions please contact the health customer care agent that requested your imaging first. Electronically signed by: Armando Pan MD, [facility] ([phone]), at 09/17/2024 1:[address] Venogram Brain (Exam End: 09/16/2024 11:21 PM) Result Value WORKSTATION ID [id number] Impression CT head: 1. Interval craniotomy with [...] who have questions please contact the health customer care agent that requested your imaging first. Electronically signed by: Armando Pan MD, [facility] ([phone]), at 09/17/2024 1:42 AM XR Chest One View (Exam End: 09/16/2024 11:00 PM) Result Value WORKSTATION ID [id number] Impression Satisfactorily positioned enteric and endotracheal tubes. Left lower lobe atelectasis versus pneumonia. Thank you for letting us participate in the care of this patient. If you are a health care provider and have any questions regarding this report, please contact the number below. For patients who have questions please contact the health customer care agent that requested your imaging first. Electronically signed by: Pamela Beard MD, [facility] ([phone]), at 09/17/2024 12:09 AM XR Abdomen 1 view (Generic) (Exam End: 09/16/2024 11:00 PM) Result Value WORKSTATION ID [id number] Impression Satisfactorily positioned enteric and endotracheal tubes. Left lower lobe atelectasis versus pneumonia. Thank you for letting us participate in the care of this patient. If you are a health care provider and have any questions regarding this report, please contact the number below. For patients who have questions please contact the health customer care agent that requested your imaging first. Electronically signed by: Pamela Beard MD, [facility] ([phone]), at 09/17/2024 12:[address] Head wo Contrast (Generic) (Exam End: 09/17/2024 4:51 AM) Result Value WORKSTATION ID [id number] Impression Increased size and density of dominant [...] who have questions please contact the health customer care agent that requested your imaging first. Electronically signed by: Elvin Bolden DO, [facility] ([phone]), at 09/17/2024 8:38 AM XR Chest One View (Exam End: 09/17/2024 2:13 PM) Result Value WORKSTATION ID [id number] Impression 1. No focal opacity in lung [...] who have questions please contact the health customer care agent that requested your imaging first. Electronically signed by: Zoey Zabala MD, [facility] ([phone]), at 09/17/2024 2:43 PM XR Chest One View (Exam End: 09/18/2024 8:43 AM) Result Value WORKSTATION ID [id number] Impression Tubes and lines as described. Blunting of the left costophrenic angle suggests tiny layering left effusion with associated left basilar consolidation/atelectasis Thank you for letting us participate in the care of this patient. If you are a health care provider and have any questions regarding this report, please contact the number below. For patients who have questions please contact the health customer care agent that requested your imaging first. Electronically signed by: Arie Bhat [facility] ([phone]), at 09/18/2024 9:29 AM XR Abdomen 1 view (Generic) (Exam End: 09/18/2024 12:31 PM) Result Value WORKSTATION ID [id number] Impression Dobbhoff tube tip along the greater curve of the stomach. Thank you for letting us participate in the care of this patient. If you are a health care provider and have any questions regarding this report, please contact the number below. For patients who have questions please contact the health customer care agent that requested your imaging first. Electronically signed by: Arie Bhat [facility] ([phone]), at 09/18/2024 1:05 PM MRI Brain wwo Contrast (Generic) (Exam End: 09/19/2024 5:43 PM) Result Value WORKSTATION ID [id number] Impression Unchanged size of large right cerebral hemisphere ICH status post partial evacuation. Numerous small foci of decreased acute infarction both along and separate from the site of hemorrhage. These foci are present in both cerebral hemispheres and have a pattern most consistent with embolic infarction. No evidence of NEON MOLDER malignancy Thank you for letting us participate in the care of this patient. If you are a health care provider and have any questions regarding this report, please contact the number below. For patients who have questions please contact the health customer care agent that requested your imaging first. Electronically signed by: Rios Swartz MD, [facility] ([phone]), at 09/20/2024 8:[address] Head wo Contrast (Generic) (Exam End: 09/21/2024 3:50 AM) Result Value WORKSTATION ID [id number] Impression Stable hemorrhage right temporal, parietal, right [...] who have questions please contact the health customer care agent that requested your imaging first. Electronically signed by: Armando Pan MD, [facility] ([phone]), at 09/21/2024 4:55 AM XR Abdomen 1 view (Generic) (Exam End: 09/21/2024 2:01 PM) Result Value WORKSTATION ID [id number] Impression Dobbhoff tube and enteric tube sidehole [...] who have questions please contact the health customer care agent that requested your imaging first. Electronically signed by: Shraddha Cox MD, [facility] ([phone]), at 09/21/2024 3:40 PM XR Chest One View (Exam End: 09/21/2024 2:01 PM) Result Value WORKSTATION ID [id number] Impression ET tube with tip projecting approximately [...] who have questions please contact the health customer care agent that requested your imaging first. Electronically signed by: Octavio Scott MD, [facility] ([phone]), at 09/21/2024 5:[address] Head wo Contrast (Generic) (Exam End: 09/22/2024 4:02 AM) Result Value WORKSTATION ID [id number] Impression Stable head CT status post removal of subcutaneous drain. No new or enlarging hemorrhage. Stable pattern of mass effect Thank you for letting us participate in the care of this patient. If you are a health care provider and have any questions regarding this report, please contact the number below. For patients who have questions please contact the health customer care agent that requested your imaging first. Electronically signed by: Armando Pan MD, [facility] ([phone]), at 09/22/2024 4:31 AM Assessment: 74 y.o. female with PMHx notable for Afib (taking ASA, previously on apixaban-stopped taking after IPH in April 2024), CHRISTOPHER, HLD, BMI of 36, prior IPH 04/2024 who presented to hospital 09/16/24 for placement of Watchman with cardiology. She developed headaches and nausea post op and CT scan noted large R shapdojx-ugvdbpu-jircldswo IPH. Now s/p 09/16/24, Dr. Espinal: R [...] primary For questions please call NSGY pager [phone] Rob Guzman MD Clinical Documentation Improvement: Active [...] y.o. Code Status: FULL. HPI: [place] [facility] [place] and developed a large [...] at discharge. I have met with the outside sales account representative (son Don Pollard) to: discuss discharge planning needs. provide the [facility] [place], Office of Care Management letter from the [place] pertaining to rehab referrals. provide a letter describing our affiliations within the [facility] and educate about their right to choose where referrals are sent. provide the CMS Star Quality Rating handout. review the different levels of rehab including SNF, swing, and acute. provide a list of facilities within their preferred geographic area. request that they provide at least three choices for referral. They have requested referrals to: [facility] and [facility] [address] [place] [address] Note routed to a Advertising Dispatch Clerk who will communicate referrals to facilities and provide any required information. Anupama Pastrana, MSN, RN, ACM-RN [facility] [place] environmental solutions engineer * Dayana Cotter, ZUHAIR - 09/23/2024 10:25 AM EDT Speech-Language Pathology Consult Note Lucero Bruno is a 74 y.o. 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 Remains in Neuro ICU on vent. BAG MACHINE ADJUSTER team will continue to monitor. Dayana Cotter MA [facility]-BAG MACHINE ADJUSTER Inpatient Rehabilitation Medicine pager:# [phone] * Mariola Calixto MD - 09/23/2024 9:27 AM EDT ICU PROGRESS NOTE DOA: 09/16/2024 Room: [address] [place] [address] Length of Stay: 7 ICU Length of Stay 6d 11h Lucero Bruno ( ) is a 74 y.o. 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 who presented [place] [facility] [place] for watchman procedure subsequently developing a [...] dilTIAZem 90 mg Per NG tube Q6H [facility] multivitamin with minerals 1 tablet Per NG tube Daily polyethylene glycoL (MIRALAX) oral powder 17 g Oral Daily docusate sodium 100 mg Per NG tube BID And sennosides 17.6 mg Per NG tube BID Continuous Infusions: tube feeding diet Stopped (09/23/24 035) dexmedeTOMIDine 0.4 mcg/kg/hr (09/23/24 07) PRN Meds:.potassium chloride in water OR potassium [...] wbc, hgb, hct plt Recent Labs 09/23/24 01009/22/24 0126 09/21/24 0021 WBC 19.97* 16.65* 14.84* HGB 10.0* 9.9* 8.9* HCT 30.1* 29.4* 27.2* PLATELET 293 274 217 Last 3 Lytes Recent Labs 09/23/24 0756 09/23/2410009/22/24 0126 09/21/24 0021 NA -- 138 139 141 K 3.9 3.9 4.0 4.2 CL -- 103 104 107 CO2 -- 25 23 23 BUN -- 26* 26* 30* CREATININE -- 0.47* 0.53* 0.54* Last 3 LFTs Recent Labs 05/08/24 01205/07/24 0157 05/06/24 0951 AST 15 13 16 [...] - optimize regimen with goal of 1 [id number] while on TF Monitor BG - goal of 140-180 Daily weights I was able to discuss plan with provider [facility] 5668 . Current Nutrition Regimen: Active Orders [...] medications: Continuous tube feeding diet Stopped (09/23/24 5765) dexmedeTOMIDine 0.4 mcg/kg/hr (09/23/24 0800) Scheduled amLODIPine [...] encounter: 89.2 kg (196 lb 10.4 oz). [place] Body Weight (IBW) (kg): 45.45 Wt Readings [...] Thank you, Sherine Santana, MS, RD, LD, [facility] Clinical Nutrition * Rob Guzman MD - 09/23/2024 7:22 AM EDT [facility] NEUROSURGERY PROGRESS NOTE ID: Lucero Bruno 74 y.o. female : 1950 LOS: 7 Neurosurgical Procedures this Admission: 09/16/24, Dr. Espinal: R craniotomy for IPH evacuation INTERVAL Hx: DANILO. Neurostable this am MEDICATIONS: Scheduled Meds: magnesium [...] 09/16/2024 5:26 PM) Result Value WORKSTATION ID [id number] Impression Interval expansion of now large right-sided [...] who have questions please contact the health customer care agent that requested your imaging first. Electronically signed by: Lana Reinoso [facility] ([phone]), at 09/16/2024 6:[address] Head wo Contrast (Generic) (Exam End: 09/16/2024 11:21 PM) Result Value WORKSTATION ID [id number] Impression CT head: 1. Interval craniotomy with [...] who have questions please contact the health customer care agent that requested your imaging first. Electronically signed by: Armando Pan MD, [facility] ([phone]), at 09/17/2024 1:[address] Venogram Brain (Exam End: 09/16/2024 11:21 PM) Result Value WORKSTATION ID [id number] Impression CT head: 1. Interval craniotomy with [...] who have questions please contact the health customer care agent that requested your imaging first. Electronically signed by: Armando Pan MD, [facility] ([phone]), at 09/17/2024 1:42 AM XR Chest One View (Exam End: 09/16/2024 11:00 PM) Result Value WORKSTATION ID [id number] Impression Satisfactorily positioned enteric and endotracheal tubes. Left lower lobe atelectasis versus pneumonia. Thank you for letting us participate in the care of this patient. If you are a health care provider and have any questions regarding this report, please contact the number below. For patients who have questions please contact the health customer care agent that requested your imaging first. Electronically signed by: Pamela Beard MD, [facility] ([phone]), at 09/17/2024 12:09 AM XR Abdomen 1 view (Generic) (Exam End: 09/16/2024 11:00 PM) Result Value WORKSTATION ID [id number] Impression Satisfactorily positioned enteric and endotracheal tubes. Left lower lobe atelectasis versus pneumonia. Thank you for letting us participate in the care of this patient. If you are a health care provider and have any questions regarding this report, please contact the number below. For patients who have questions please contact the health customer care agent that requested your imaging first. Electronically signed by: Pamela Beard MD, [facility] ([phone]), at 09/17/2024 12:[address] Head wo Contrast (Generic) (Exam End: 09/17/2024 4:51 AM) Result Value WORKSTATION ID [id number] Impression Increased size and density of dominant [...] who have questions please contact the health customer care agent that requested your imaging first. Electronically signed by: Elvin Bolden DO, [facility] ([phone]), at 09/17/2024 8:38 AM XR Chest One View (Exam End: 09/17/2024 2:13 PM) Result Value WORKSTATION ID [id number] Impression 1. No focal opacity in lung [...] who have questions please contact the health customer care agent that requested your imaging first. Electronically signed by: Zoey Zabala MD, [facility] ([phone]), at 09/17/2024 2:43 PM XR Chest One View (Exam End: 09/18/2024 8:43 AM) Result Value WORKSTATION ID [id number] Impression Tubes and lines as described. Blunting of the left costophrenic angle suggests tiny layering left effusion with associated left basilar consolidation/atelectasis Thank you for letting us participate in the care of this patient. If you are a health care provider and have any questions regarding this report, please contact the number below. For patients who have questions please contact the health customer care agent that requested your imaging first. Abdomen 1 view (Generic) (Exam End: 09/18/2024 12:31 PM) Result Value WORKSTATION ID [id number] Impression Dobbhoff tube tip along the greater curve of the stomach. Thank you for letting us participate in the care of this patient. If you are a health care provider and have any questions regarding this report, please contact the number below. For patients who have questions please contact the health customer care agent that requested your imaging first. Brain wwo Contrast (Generic) (Exam End: 09/19/2024 5:43 PM) Result Value WORKSTATION ID [id number] Impression Unchanged size of large right cerebral hemisphere ICH status post partial evacuation. Numerous small foci of decreased acute infarction both along and separate from the site of hemorrhage. These foci are present in both cerebral hemispheres and have a pattern most consistent with embolic infarction. No evidence of NEON MOLDER malignancy Thank you for letting us participate in the care of this patient. If you are a health care provider and have any questions regarding this report, please contact the number below. For patients who have questions please contact the health customer care agent that requested your imaging first. Electronically signed by: Rios Swartz MD, [facility] ([phone]), at 09/20/2024 8:[address] Head wo Contrast (Generic) (Exam End: 09/21/2024 3:50 AM) Result Value WORKSTATION ID [id number] Impression Stable hemorrhage right temporal, parietal, right [...] who have questions please contact the health customer care agent that requested your imaging first. Electronically signed by: Armando Pan MD, [facility] ([phone]), at 09/21/2024 4:55 AM XR Abdomen 1 view (Generic) (Exam End: 09/21/2024 2:01 PM) Result Value WORKSTATION ID [id number] Impression Dobbhoff tube and enteric tube sidehole [...] who have questions please contact the health customer care agent that requested your imaging first. Electronically signed by: Shraddha Cox MD, [facility] ([phone]), at 09/21/2024 3:40 PM XR Chest One View (Exam End: 09/21/2024 2:01 PM) Result Value WORKSTATION ID [id number] Impression ET tube with tip projecting approximately [...] who have questions please contact the health customer care agent that requested your imaging first. Electronically signed by: Octavio Scott MD, [facility] ([phone]), at 09/21/2024 5:[address] Head wo Contrast (Generic) (Exam End: 09/22/2024 4:02 AM) Result Value WORKSTATION ID [id number] Impression Stable head CT status post removal of subcutaneous drain. No new or enlarging hemorrhage. Stable pattern of mass effect Thank you for letting us participate in the care of this patient. If you are a health care provider and have any questions regarding this report, please contact the number below. For patients who have questions please contact the health customer care agent that requested your imaging first. Electronically signed by: Armando Pan MD, [facility] ([phone]), at 09/22/2024 4:31 AM Assessment: 74 y.o. female with PMHx notable for Afib (taking ASA, previously on apixaban-stopped taking after IPH in April 2024), CHRISTOPHER, HLD, BMI of 36, prior IPH 04/2024 who presented to hospital 09/16/24 for placement of Watchman with cardiology. She developed headaches and nausea post op and CT scan noted large R gpqkqxmb-wrimvcn-wqvypuypg IPH. Now s/p 09/16/24, Dr. Espinal: R [...] primary For questions please call NSGY pager [phone] Rob Guzman MD Clinical Documentation Improvement: Active [...] y.o. Code Status: FULL. HPI: Presents [place] [facility] [place] and developed a large [...] be 2/2 to CAA who presented to [facility] [place] procedure subsequently developing a large [...] 0.63) performed by Sushila Espinal MD at [facility] MAIN OR PRO LAPAROSCOPY W TOT HYSTERECTUTERUS <=250 GRAM W TUBE/OVARY N/A 04/23/2024 LAPAROSCOPY, TOTAL HYST, UTERUS<250GMS, REM TUBE &/OR OVARY (WRVU 15) performed by Xiomara Burkett MD at [facility] MAIN OR PRO OPEN SKULL EVAC INTRACEREBR BLOOD Right 09/16/2024 @CRANI-HEMATOMA EVACUATION, INTRACEREBRAL (WRVU 28.09) performed by Sushila Espinal MD at [facility] MAIN OR Social History: per previous [...] in all aspects. 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 Pt presented [place] [facility] [place] subsequently developing a large [...] outlined inthis evaluation. Time IN / OUT: 7721-4095 Total Minutes, Physical Therapy: 18 Billing Code: mod complexity yolaal Kymberly Baptiste PT, DPT, NCS Pager: [phone] Physical Therapy Inpatient Rehabilitation Department * Mariola Calixto MD - 09/22/2024 11:08 AM EDT ICU PROGRESS NOTE DOA: 09/16/2024 Room: [address] [place] [address]- Length of Stay: 6 ICU Length of Stay 5d 13h Lucero Bruno ( ) is a 74 y.o. 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 who presented to [facility] [place] for watchman procedure subsequently developing a [...] dilTIAZem 90 mg Per NG tube Q6H [facility] multivitamin with minerals 1 tablet Per NG [...] Deleon MD - 09/22/2024 6:42 AM EDT [facility] NEUROSURGERY PROGRESS NOTE ID: Lucero Bruno 74 [...] Output 1425 ml Net 473 ml Drains: AUBRYE out 09/21 GEN: Intubated NEURO: A/ox3 with yes/no questions via thumbs up/thumbs down (name/year/place) R pupil 3mm, reactive L eye down, possible down and lateral deviation, reactive MOTOR: RUE: FC, thumbs up LUE: extends to noxious stimuli (baseline since pre-op) RLE: FC, wiggles toes LLE: WD L hemianesthesia incision CDI - stacey LABS: Recent Labs 09/22/2412509/21/24 0021 09/20/24 0009 WBC 16.65* 14.84* 13.82* [...] 09/16/2024 5:26 PM) Result Value WORKSTATION ID [id number] Impression Interval expansion of now large right-sided [...] who have questions please contact the health customer care agent that requested your imaging first. Head wo Contrast (Generic) (Exam End: 09/16/2024 11:21 PM) Result Value WORKSTATION ID [id number] Impression CT head: 1. Interval craniotomy with [...] who have questions please contact the health customer care agent that requested your imaging first. Electronically signed by: Armando Pna MD, [facility] ([phone]), at 09/17/2024 1:[address] Venogram Brain (Exam End: 09/16/2024 11:21 PM) Result Value WORKSTATION ID [id number] Impression CT head: 1. Interval craniotomy with [...] who have questions please contact the health customer care agent that requested your imaging first. Electronically signed by: Armando Pan MD, [facility] ([phone]), at 09/17/2024 1:42 AM XR Chest One View (Exam End: 09/16/2024 11:00 PM) Result Value WORKSTATION ID [id number] Impression Satisfactorily positioned enteric and endotracheal tubes. Left lower lobe atelectasis versus pneumonia. Thank you for letting us participate in the care of this patient. If you are a health care provider and have any questions regarding this report, please contact the number below. For patients who have questions please contact the health customer care agent that requested your imaging first. Electronically signed by: Pam[facility]ard [facility] ([phone]), at 09/17/2024 12:09 AM XR Abdomen 1 view (Generic) (Exam End: 09/16/2024 11:00 PM) Result Value WORKSTATION ID [id number] Impression Satisfactorily positioned enteric and endotracheal tubes. Left lower lobe atelectasis versus pneumonia. Thank you for letting us participate in the care of this patient. If you are a health care provider and have any questions regarding this report, please contact the number below. For patients who have questions please contact the health customer care agent that requested your imaging first. Electronically signed by: Pamela Beard MD, [facility] ([phone]), at 09/17/2024 12:[address] Head wo Contrast (Generic) (Exam End: 09/17/2024 4:51 AM) Result Value WORKSTATION ID [id number] Impression Increased size and density of dominant [...] who have questions please contact the health customer care agent that requested your imaging first. Electronically signed by: Elvin Bolden DO, [facility] ([phone]), at 09/17/2024 8:38 AM XR Chest One View (Exam End: 09/17/2024 2:13 PM) Result Value WORKSTATION ID [id number] Impression 1. No focal opacity in lung [...] who have questions please contact the health customer care agent that requested your imaging first. Electronically signed by: Zoey Zabala MD, [facility] ([phone]), at 09/17/2024 2:43 PM XR Chest One View (Exam End: 09/18/2024 8:43 AM) Result Value WORKSTATION ID [id number] Impression Tubes and lines as described. Blunting of the left costophrenic angle suggests tiny layering left effusion with associated left basilar consolidation/atelectasis Thank you for letting us participate in the care of this patient. If you are a health care provider and have any questions regarding this report, please contact the number below. For patients who have questions please contact the health customer care agent that requested your imaging first. Abdomen 1 view (Generic) (Exam End: 09/18/2024 12:31 PM) Result Value WORKSTATION ID [id number] Impression Dobbhoff tube tip along the greater curve of the stomach. Thank you for letting us participate in the care of this patient. If you are a health care provider and have any questions regarding this report, please contact the number below. For patients who have questions please contact the health customer care agent that requested your imaging first. Electronically signed by: Arie Bhat [facility] ([phone]), at 09/18/2024 1:05 PM MRI Brain wwo Contrast (Generic) (Exam End: 09/19/2024 5:43 PM) Result Value WORKSTATION ID [id number] Impression Unchanged size of large right cerebral hemisphere ICH status post partial evacuation. Numerous small foci of decreased acute infarction both along and separate from the site of hemorrhage. These foci are present in both cerebral hemispheres and have a pattern most consistent with embolic infarction. No evidence of NEON MOLDER malignancy Thank you for letting us participate in the care of this patient. If you are a health care provider and have any questions regarding this report, please contact the number below. For patients who have questions please contact the health customer care agent that requested your imaging first. Electronically signed by: Rios Swartz MD, [facility] ([phone]), at 09/20/2024 8:[address] Head wo Contrast (Generic) (Exam End: 09/21/2024 3:50 AM) Result Value WORKSTATION ID [id number] Impression Stable hemorrhage right temporal, parietal, right [...] who have questions please contact the health customer care agent that requested your imaging first. Electronically signed by: Armando Pan MD, [facility] ([phone]), at 09/21/2024 4:55 AM XR Abdomen 1 view (Generic) (Exam End: 09/21/2024 2:01 PM) Result Value WORKSTATION ID [id number] Impression Dobbhoff tube and enteric tube sidehole [...] who have questions please contact the health customer care agent that requested your imaging first. Electronically signed by: Shraddha Cox MD, [facility] ([phone]), at 09/21/2024 3:40 PM XR Chest One View (Exam End: 09/21/2024 2:01 PM) Result Value WORKSTATION ID [id number] Impression ET tube with tip projecting approximately [...] who have questions please contact the health customer care agent that requested your imaging first. Electronically signed by: Octavio Scott MD, [facility] ([phone]), at 09/21/2024 5:[address] Head wo Contrast (Generic) (Exam End: 09/22/2024 4:02 AM) Result Value WORKSTATION ID [id number] Impression Stable head CT status post removal of subcutaneous drain. No new or enlarging hemorrhage. Stable pattern of mass effect Thank you for letting us participate in the care of this patient. If you are a health care provider and have any questions regarding this report, please contact the number below. For patients who have questions please contact the health customer care agent that requested your imaging first. Electronically signed by: Armando Pan MD, [facility] ([phone]), at 09/22/2024 4:31 AM Assessment: 74 y.o. female with PMHx notable for Afib (taking ASA, previously on apixaban-stopped taking after IPH in April 2024), CHRISTOPHER, HLD, BMI of 36, prior IPH 04/2024 who presented to hospital 09/16/24 for placement of Watchman with cardiology. She developed headaches and nausea post op and CT scan noted large R qyuctppw-xwjplyh-xbcbaeomj IPH. Now s/p 09/16/24, Dr. Espinal: R [...] primary For questions please call NSGY pager [phone] Dodie Deleon MD Clinical Documentation Improvement: Active [...] Ongoing (Interventions Implemented as Appropriate) * Gayle Daniel RCP - 09/22/2024 5:13 AM EDT AMV Protocol: [...] Pinon MD - 09/21/2024 6:30 PM EDT [facility] Neurosurgery Patient seen and examined on rounds. She remains intubated but was wide-awake and alert, tracking and attending. She followed commands briskly in the right upper and lower extremity. She did not follow on the left. Her incision was clean, dry, and intact. Continue with neurosurgical care as previously outlined. Neurosurgery Pager: [phone] Erick Pinon MD 09/21/2024 6:57 PM * Enedina Titus SLP - 09/21/2024 4:22 PM EDT Speech Language Pathology Contact Note - No Charge Visit Order received for post-extubation clinical swallow evaluation. Chart reviewed. Pt was emergently re-intubated for respiratory distress after failed extubation today. BAG MACHINE ADJUSTER team will continue to monitor. Please page with any questions or concerns. Enedina Munoz M.A., CCC-BAG MACHINE ADJUSTER Speech-Language Pathology Inpatient Rehabilitation Department Pager # [phone] * Rob Guzman MD - 09/21/2024 3:24 PM EDT [facility] NEUROSURGERY PROGRESS NOTE ID: Lucero Bruno 74 [...] 09/16/2024 5:26 PM) Result Value WORKSTATION ID [id number] Impression Interval expansion of now large right-sided [...] who have questions please contact the health customer care agent that requested your imaging first. Electronically signed by: Lana Reinoso, [facility] ([phone]), at 09/16/2024 6:[address] Head wo Contrast (Generic) (Exam End: 09/16/2024 11:21 PM) Result Value WORKSTATION ID [id number] Impression CT head: 1. Interval craniotomy with [...] who have questions please contact the health customer care agent that requested your imaging first. Electronically signed by: Armando Pan MD, [facility] ([phone]), at 09/17/2024 1:[address] Venogram Brain (Exam End: 09/16/2024 11:21 PM) Result Value WORKSTATION ID [id number] Impression CT head: 1. Interval craniotomy with [...] who have questions please contact the health customer care agent that requested your imaging first. Electronically signed by: Armando Pan MD, [facility] ([phone]), at 09/17/2024 1:42 AM XR Chest One View (Exam End: 09/16/2024 11:00 PM) Result Value WORKSTATION ID [id number] Impression Satisfactorily positioned enteric and endotracheal tubes. Left lower lobe atelectasis versus pneumonia. Thank you for letting us participate in the care of this patient. If you are a health care provider and have any questions regarding this report, please contact the number below. For patients who have questions please contact the health customer care agent that requested your imaging first. Electronically signed by: Pamela Beard MD, [facility] ([phone]), at 09/17/2024 12:09 AM XR Abdomen 1 view (Generic) (Exam End: 09/16/2024 11:00 PM) Result Value WORKSTATION ID [id number] Impression Satisfactorily positioned enteric and endotracheal tubes. Left lower lobe atelectasis versus pneumonia. Thank you for letting us participate in the care of this patient. If you are a health care provider and have any questions regarding this report, please contact the number below. For patients who have questions please contact the health customer care agent that requested your imaging first. Electronically signed by: Pamela Beard MD, [facility] ([phone]), at 09/17/2024 12:[address] Head wo Contrast (Generic) (Exam End: 09/17/2024 4:51 AM) Result Value WORKSTATION ID [id number] Impression Increased size and density of dominant [...] who have questions please contact the health customer care agent that requested your imaging first. Electronically signed by: Elvin Bolden DO, [facility] ([phone]), at 09/17/2024 8:38 AM XR Chest One View (Exam End: 09/17/2024 2:13 PM) Result Value WORKSTATION ID [id number] Impression 1. No focal opacity in lung [...] who have questions please contact the health customer care agent that requested your imaging first. Electronically signed by: Zoey Zabala MD, [facility] ([phone]), at 09/17/2024 2:43 PM XR Chest One View (Exam End: 09/18/2024 8:43 AM) Result Value WORKSTATION ID [id number] Impression Tubes and lines as described. Blunting of the left costophrenic angle suggests tiny layering left effusion with associated left basilar consolidation/atelectasis Thank you for letting us participate in the care of this patient. If you are a health care provider and have any questions regarding this report, please contact the number below. For patients who have questions please contact the health customer care agent that requested your imaging first. Electronically signed by: Arie Bhat [facility] ([phone]), at 09/18/2024 9:29 AM XR Abdomen 1 view (Generic) (Exam End: 09/18/2024 12:31 PM) Result Value WORKSTATION ID [id number] Impression Dobbhoff tube tip along the greater curve of the stomach. Thank you for letting us participate in the care of this patient. If you are a health care provider and have any questions regarding this report, please contact the number below. For patients who have questions please contact the health customer care agent that requested your imaging first. Electronically signed by: Arie Bhat [facility] ([phone]), at 09/18/2024 1:05 PM MRI Brain wwo Contrast (Generic) (Exam End: 09/19/2024 5:43 PM) Result Value WORKSTATION ID [id number] Impression Unchanged size of large right cerebral hemisphere ICH status post partial evacuation. Numerous small foci of decreased acute infarction both along and separate from the site of hemorrhage. These foci are present in both cerebral hemispheres and have a pattern most consistent with embolic infarction. No evidence of NEON MOLDER malignancy Thank you for letting us participate in the care of this patient. If you are a health care provider and have any questions regarding this report, please contact the number below. For patients who have questions please contact the health customer care agent that requested your imaging first. Electronically signed by: Rios Swartz MD, [facility] ([phone]), at 09/20/2024 8:[address] Head wo Contrast (Generic) (Exam End: 09/21/2024 3:50 AM) Result Value WORKSTATION ID [id number] Impression Stable hemorrhage right temporal, parietal, right [...] who have questions please contact the health customer care agent that requested your imaging first. Electronically signed by: Armando Pan MD, [facility] ([phone]), at 09/21/2024 4:55 AM Assessment: 74 y.o. female with PMHx notable for Afib (taking ASA, previously on apixaban-stopped taking after IPH in April 2024), CHRISTOPHER, HLD, BMI of 36, prior IPH 04/2024 who presented to hospital 09/16/24 for placement of Watchman with cardiology. She developed headaches and nausea post op and CT scan noted large R dewhcpua-mcddnqy-jhijggnua IPH. Repeated CTH wo contrast overnight showing [...] AUBREY today -[facility] CT 399Sep 22 -Wean sedation and wean to extubate as able -Rest of care per primary For questions please call NSGY pager [phone] Rob Guzman MD Clinical Documentation Improvement: Active [...] - optimize regimen with goal of 1 p67-61bit while on TF Monitor BG - goal of 140-180 Daily weights I was able to discuss plan with provider Neurocritical Care Pager #[phone] . Current Nutrition Regimen: Active Orders Diet [...] encounter: 91.3 kg (201 lb 4.5 oz). [place] Body Weight (IBW) (kg): 45.45 Wt Readings [...] while inpatient Thank you, Sherine Henriquez. Max, , RD, LD, [facility] Clinical Nutrition * Mariola Calixto MD - 09/21/2024 9:35 AM EDT ICU PROGRESS NOTE DOA: 09/16/2024 Room: [address] [place] [address]- Length of Stay: 5 ICU Length of Stay 4d 11h Lucero Bruno ( ) is a 74 y.o. 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 Head wo Contrast (Generic) (Exam End: 09/16/2024 11:21 PM) Result Value WORKSTATION ID [id number] Impression CT head: 1. Interval craniotomy with [...] who have questions please contact the health customer care agent that requested your imaging first. Electronically signed by: Armando Pan MD, [facility] ([phone]), at 09/17/2024 1:[address] Venogram Brain (Exam End: 09/16/2024 11:21 PM) Result Value WORKSTATION ID [id number] Impression CT head: 1. Interval craniotomy with [...] who have questions please contact the health customer care agent that requested your imaging first. Electronically signed by: Armando Pan MD, [facility] ([phone]), at 09/17/2024 1:42 AM XR Chest One View (Exam End: 09/16/2024 11:00 PM) Result Value WORKSTATION ID [id number] Impression Satisfactorily positioned enteric and endotracheal tubes. Left lower lobe atelectasis versus pneumonia. Thank you for letting us participate in the care of this patient. If you are a health care provider and have any questions regarding this report, please contact the number below. For patients who have questions please contact the health customer care agent that requested your imaging first. Electronically signed by: Pamela Beard MD, [facility] ([phone]), at 09/17/2024 12:09 AM XR Abdomen 1 view (Generic) (Exam End: 09/16/2024 11:00 PM) Result Value WORKSTATION ID [id number] Impression Satisfactorily positioned enteric and endotracheal tubes. Left lower lobe atelectasis versus pneumonia. Thank you for letting us participate in the care of this patient. If you are a health care provider and have any questions regarding this report, please contact the number below. For patients who have questions please contact the health customer care agent that requested your imaging first. Electronically signed by: Pamela Beard MD, [facility] ([phone]), at 09/17/2024 12:[address] Head wo Contrast (Generic) (Exam End: 09/17/2024 4:51 AM) Result Value WORKSTATION ID [id number] Impression Increased size and density of dominant [...] who have questions please contact the health customer care agent that requested your imaging first. Electronically signed by: Elvin Bolden DO, [facility] ([phone]), at 09/17/2024 8:38 AM XR Chest One View (Exam End: 09/17/2024 2:13 PM) Result Value WORKSTATION ID [id number] Impression 1. No focal opacity in lung [...] who have questions please contact the health customer care agent that requested your imaging first. Electronically signed by: Zoey Zabala MD, [facility] ([phone]), at 09/17/2024 2:43 PM XR Chest One View (Exam End: 09/18/2024 8:43 AM) Result Value WORKSTATION ID [id number] Impression Tubes and lines as described. Blunting of the left costophrenic angle suggests tiny layering left effusion with associated left basilar consolidation/atelectasis Thank you for letting us participate in the care of this patient. If you are a health care provider and have any questions regarding this report, please contact the number below. For patients who have questions please contact the health customer care agent that requested your imaging first. Electronically signed by: Arie Bhat [facility] ([phone]), at 09/18/2024 9:29 AM XR Abdomen 1 view (Generic) (Exam End: 09/18/2024 12:31 PM) Result Value WORKSTATION ID [id number] Impression Dobbhoff tube tip along the greater curve of the stomach. Thank you for letting us participate in the care of this patient. If you are a health care provider and have any questions regarding this report, please contact the number below. For patients who have questions please contact the health customer care agent that requested your imaging first. Electronically signed by: Arie Bhat [facility] ([phone]), at 09/18/2024 1:05 PM MRI Brain wwo Contrast (Generic) (Exam End: 09/19/2024 5:43 PM) Result Value WORKSTATION ID [id number] Impression Unchanged size of large right cerebral hemisphere ICH status post partial evacuation. Numerous small foci of decreased acute infarction both along and separate from the site of hemorrhage. These foci are present in both cerebral hemispheres and have a pattern most consistent with embolic infarction. No evidence of NEON MOLDER malignancy Thank you for letting us participate in the care of this patient. If you are a health care provider and have any questions regarding this report, please contact the number below. For patients who have questions please contact the health customer care agent that requested your imaging first. Electronically signed by: Rois Swartz MD, [facility] ([phone]), at 09/20/2024 8:24 AM Assessment: 74 y.o. female with PMHx notable for Afib (taking ASA, previously on apixaban-stopped taking after IPH in April 2024), CHRISTOPHER, HLD, BMI of 36, prior IPH 04/2024 who presented to hospital 09/16/24 for placement of Watchman with cardiology. She developed headaches and nausea post op and CT scan noted large R uahyeupq-wcwexkk-izalawrxt IPH. Repeated CTH wo contrast overnight showing [...] care per primary For questions please call [email or web address] pager [phone] Rob Guzman MD Clinical Documentation Improvement: Active [...] head tomorrow AM Sushila Espinal MD PhD Sales Host Section of Neurosurgery Department of [facility] [email or web address] * Bartolome Xiao RCP - 09/20/2024 3:35 AM EDT RT Mechanical Ventilation Note Lucero Florence Bruno 74 y.o. female 09/16/2024 10:06 AM [...] Gas) No results found for: PHART, PO2ART, [id number] Initial Assessment: Received patient intubated on vent [...] EDT ICU PROGRESS NOTE DOA: 09/16/2024 Room: [address] [place] [address] Length of Stay: 3 ICU Length of Stay 2d 11h Lucero Bruno ( ) is a 74 y.o. 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 Electronically signed by: Lana Reinoso [facility] ([phone]), at 09/16/2024 6:[address] Head wo Contrast (Generic) (Exam End: 09/16/2024 11:21 PM) Result Value WORKSTATION ID [id number] Impression CT head: 1. Interval craniotomy with [...] who have questions please contact the health customer care agent that requested your imaging first. Electronically signed by: Armando Pan MD, [facility] ([phone]), at 09/17/2024 1:[address] Venogram Brain (Exam End: 09/16/2024 11:21 PM) Result Value WORKSTATION ID [id number] Impression CT head: 1. Interval craniotomy with [...] who have questions please contact the health customer care agent that requested your imaging first. Electronically signed by: Armando Pan MD, [facility] ([phone]), at 09/17/2024 1:42 AM XR Chest One View (Exam End: 09/16/2024 11:00 PM) Result Value WORKSTATION ID [id number] Impression Satisfactorily positioned enteric and endotracheal tubes. Left lower lobe atelectasis versus pneumonia. Thank you for letting us participate in the care of this patient. If you are a health care provider and have any questions regarding this report, please contact the number below. For patients who have questions please contact the health customer care agent that requested your imaging first. Electronically signed by: Pamela Beard MD, [facility] ([phone]), at 09/17/2024 12:09 AM XR Abdomen 1 view (Generic) (Exam End: 09/16/2024 11:00 PM) Result Value WORKSTATION ID [id number] Impression Satisfactorily positioned enteric and endotracheal tubes. Left lower lobe atelectasis versus pneumonia. Thank you for letting us participate in the care of this patient. If you are a health care provider and have any questions regarding this report, please contact the number below. For patients who have questions please contact the health customer care agent that requested your imaging first. Electronically signed by: Pamela Beard MD, [facility] ([phone]), at 09/17/2024 12:[address] Head wo Contrast (Generic) (Exam End: 09/17/2024 4:51 AM) Result Value WORKSTATION ID [id number] Impression Increased size and density of dominant [...] who have questions please contact the health customer care agent that requested your imaging first. Electronically signed by: Elvin Bolden DO, [facility] ([phone]), at 09/17/2024 8:38 AM XR Chest One View (Exam End: 09/17/2024 2:13 PM) Result Value WORKSTATION ID [id number] Impression 1. No focal opacity in lung [...] who have questions please contact the health customer care agent that requested your imaging first. Electronically signed by: Zoey Zabala MD, [facility] ([phone]), at 09/17/2024 2:43 PM XR Chest One View (Exam End: 09/18/2024 8:43 AM) Result Value WORKSTATION ID [id number] Impression Tubes and lines as described. Blunting of the left costophrenic angle suggests tiny layering left effusion with associated left basilar consolidation/atelectasis Thank you for letting us participate in the care of this patient. If you are a health care provider and have any questions regarding this report, please contact the number below. For patients who have questions please contact the health customer care agent that requested your imaging first. Electronically signed by: Arie Bhat [facility] ([phone]), at 09/18/2024 9:29 AM XR Abdomen 1 view (Generic) (Exam End: 09/18/2024 12:31 PM) Result Value WORKSTATION ID [id number] Impression Dobbhoff tube tip along the greater curve of the stomach. Thank you for letting us participate in the care of this patient. If you are a health care provider and have any questions regarding this report, please contact the number below. For patients who have questions please contact the health customer care agent that requested your imaging first. Electronically signed by: Arie Bhat [facility] ([phone]), at 09/18/2024 1:05 PM Assessment: 74 y.o. female with PMHx notable for Afib (taking ASA, previously on apixaban-stopped taking after IPH in April 2024), CHRISTOPHER, HLD, BMI of 36, prior IPH 04/2024 who presented to hospital 09/16/24 for placement of Watchman with cardiology. She developed headaches and nausea post op and CT scan noted large R ixxkprse-bhupbwr-lwgmoguuj IPH. Repeated CTH wo contrast overnight showing [...] primary For questions please call NSGY pager [phone] Crys Suarez MD Clinical Documentation Improvement: Active Hospital Problems Diagnosis Presence of Watchman left atrial appendage closure device Resolved Hospital Problems No resolved problems to display. Associated attestation - Sushila Espinal MD - 09/20/2024 1:05 PM EDT I was the attending physician supervising the resident in the above care. I agree with the history,physical exam, assessment, and plan. Sushila Espinal MD PhD Sales Host Section of Neurosurgery Department of [facility] [email or web address] * Ezequiel Morales RN - 09/19/2024 6:44 [...] Gas) No results found for: PHART, PO2ART, [id number] Initial Assessment: Received patient intubated on vent [...] EDT ICU PROGRESS NOTE DOA: 09/16/2024 Room: [address] [place] [address]-A Length of Stay: 2 ICU Length of Stay 1d 13h Lucero Bruno ( ) is a 74 y.o. 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 Over night events: Febrile to 101.3, pancultured. Required 3 PRNs for BP control. Medications: Scheduled Meds: acetaminophen 1,000 mg Intravenous Q6H CARLY insulin lispro 1-4 Units Subcutaneous [facility]H [facility] multivitamin with minerals 1 tablet Per NG [...] Suarez MD - 09/18/2024 7:59 AM EDT [facility] NEUROSURGERY PROGRESS NOTE ID: Lucero Bruno 74 [...] 09/16/2024 5:26 PM) Result Value WORKSTATION ID [id number] Impression Interval expansion of now large right-sided [...] who have questions please contact the health customer care agent that requested your imaging first. Electronically signed by: Lana Reinoso, [facility] ([phone]), at 09/16/2024 6:[address] Head wo Contrast (Generic) (Exam End: 09/16/2024 11:21 PM) Result Value WORKSTATION ID [id number] Impression CT head: 1. Interval craniotomy with [...] who have questions please contact the health customer care agent that requested your imaging first. Electronically signed by: Armando Pan MD, [facility] ([phone]), at 09/17/2024 1:[address] Venogram Brain (Exam End: 09/16/2024 11:21 PM) Result Value WORKSTATION ID [id number] Impression CT head: 1. Interval craniotomy with [...] who have questions please contact the health customer care agent that requested your imaging first. Electronically signed by: Armando Pan MD, [facility] ([phone]), at 09/17/2024 1:42 AM XR Chest One View (Exam End: 09/16/2024 11:00 PM) Result Value WORKSTATION ID [id number] Impression Satisfactorily positioned enteric and endotracheal tubes. Left lower lobe atelectasis versus pneumonia. Thank you for letting us participate in the care of this patient. If you are a health care provider and have any questions regarding this report, please contact the number below. For patients who have questions please contact the health customer care agent that requested your imaging first. Electronically signed by: [facility] ([phone]), at 09/17/2024 12:09 AM XR Abdomen 1 view (Generic) (Exam End: 09/16/2024 11:00 PM) Result Value WORKSTATION ID [id number] Impression Satisfactorily positioned enteric and endotracheal tubes. Left lower lobe atelectasis versus pneumonia. Thank you for letting us participate in the care of this patient. If you are a health care provider and have any questions regarding this report, please contact the number below. For patients who have questions please contact the health customer care agent that requested your imaging first. Electronically signed by: [facility] ([phone]), at 09/17/2024 12:[address] Head wo Contrast (Generic) (Exam End: 09/17/2024 4:51 AM) Result Value WORKSTATION ID [id number] Impression Increased size and density of dominant [...] who have questions please contact the health customer care agent that requested your imaging first. Electronically signed by: Elvin Bolden DO, [facility] ([phone]), at 09/17/2024 8:38 AM XR Chest One View (Exam End: 09/17/2024 2:13 PM) Result Value WORKSTATION ID [id number] Impression 1. No focal opacity in lung [...] who have questions please contact the health customer care agent that requested your imaging first. Electronically signed by: Zoey Zabala MD, [facility] ([phone]), at 09/17/2024 2:43 PM Assessment: 74 y.o. female with PMHx notable for Afib (taking ASA, previously on apixaban-stopped taking after IPH in April 2024), CHRISTOPHER, HLD, BMI of 36, prior IPH 04/2024 who presented to hospital 09/16/24 for placement of Watchman with cardiology. She developed headaches and nausea post op and CT scan noted large R ylelgdqx-orcjooz-tlfwssnbx IPH. Repeated CTH wo contrast overnight showing [...] primary For questions please call NSGY pager [phone] Crys Suarez MD Clinical Documentation Improvement: Active Hospital Problems Diagnosis Presence of Watchman left atrial appendage closure device Resolved Hospital Problems No resolved problems to display. Associated attestation - Sushila Espinal MD - 09/20/2024 1:06 PM EDT I was the attending physician supervising the resident in the above care. I agree with the history,physical exam, assessment, and plan. Sushila Espinal MD PhD Sales Host Section of Neurosurgery Department of Surgery [facility] [email or web address] * Ezequiel Morales RN - 09/18/2024 6:45 [...] Implemented as Appropriate) * Jose De La Torre, [facility] - 09/17/2024 4:45 PM EDT Illness Severity [...] List Medications/ACT: N/A Received patient on PS 08/31 on 40%. FiO2 was titrated down to 30%. Continue to wean as tolerated and give respiratory support. Jose De La Torre RCP * Serenity Espinosa MD - 09/17/2024 12:16 PM EDT ICU PROGRESS NOTE DOA: 09/16/2024 Room: [address] [place] [address] Length of Stay: 1 ICU Length of Stay 14h Lucero Bruno ( ) is a 74 y.o. 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 Electronically signed by: Lana Reinoso [facility] ([phone]), at 09/16/2024 6:[address] Head wo Contrast (Generic) (Exam End: 09/16/2024 11:21 PM) Result Value WORKSTATION ID [id number] Impression CT head: 1. Interval craniotomy with [...] who have questions please contact the health customer care agent that requested your imaging first. Electronically signed by: Armando Pan MD, [facility] ([phone]), at 09/17/2024 1:[address] Venogram Brain (Exam End: 09/16/2024 11:21 PM) Result Value WORKSTATION ID [id number] Impression CT head: 1. Interval craniotomy with [...] who have questions please contact the health customer care agent that requested your imaging first. Electronically signed by: Armando Pan MD, [facility] ([phone]), at 09/17/2024 1:42 AM XR Chest One View (Exam End: 09/16/2024 11:00 PM) Result Value WORKSTATION ID [id number] Impression Satisfactorily positioned enteric and endotracheal tubes. Left lower lobe atelectasis versus pneumonia. Thank you for letting us participate in the care of this patient. If you are a health care provider and have any questions regarding this report, please contact the number below. For patients who have questions please contact the health customer care agent that requested your imaging first. Electronically signed by: Pamela Beard MD, [facility] ([phone]), at 09/17/2024 12:09 AM XR Abdomen 1 view (Generic) (Exam End: 09/16/2024 11:00 PM) Result Value WORKSTATION ID [id number] Impression Satisfactorily positioned enteric and endotracheal tubes. Left lower lobe atelectasis versus pneumonia. Thank you for letting us participate in the care of this patient. If you are a health care provider and have any questions regarding this report, please contact the number below. For patients who have questions please contact the health customer care agent that requested your imaging first. Electronically signed by: Pamela Beard MD, [facility] ([phone]), at 09/17/2024 12:[address] Head wo Contrast (Generic) (Exam End: 09/17/2024 4:51 AM) Result Value WORKSTATION ID [id number] Impression Increased size and density of dominant [...] who have questions please contact the health customer care agent that requested your imaging first. Electronically signed by: Elvin Bolden DO, [facility] ([phone]), at 09/17/2024 8:38 AM Assessment: 74 y.o. female with PMHx notable for Afib (taking ASA, previously on apixaban-stopped taking after IPH in April 2024), CHRISTOPHER, HLD, BMI of 36, prior IPH 04/2024 who presented to hospital 09/16/24 for placement of Watchman with cardiology. She developed headaches and nausea post op and CT scan noted large R kfxutbpr-dbjhzrh-nccmbekrb IPH. Repeated CTH wo contrast overnight showing [...] primary For questions please call NSGY pager [phone] Dodie Deleon MD Clinical Documentation Improvement: Active [...] questions were answered. Sushila Espinal MD PhD Sales Host Section of Neurosurgery Department of [facility] [email or web address] * Elvin Vallecillo RCP - 09/17/2024 4:54 [...] concerned for new onset headache. Terrible feeling, 09/02 headache. +nauseas, mild vomiting. Hemodynamics stable BP [...] Colbert PA-C Interventional Cardiology Structural Heart Team [facility] Pager [phone] documented in this encounter H&P Notes * [...] 0.63) performed by Sushila Espinal MD at [facility] MAIN OR PRO LAPAROSCOPY W TOT HYSTERECTUTERUS <=250 GRAM W TUBE/OVARY N/A 04/23/2024 LAPAROSCOPY, TOTAL HYST, UTERUS<250GMS, REM TUBE &/OR OVARY (WRVU 15) performed by Xiomara Burkett MD at [facility] MAIN OR PRO OPEN SKULL EVAC INTRACEREBR BLOOD Right 09/16/2024 @CRANI-HEMATOMA EVACUATION, INTRACEREBRAL (VU 28.09) performed by Sushila Espinal MD at [facility] MAIN OR PRO PERQ CLSR TCAT L ATR APNDGE W/ENDOCARDIAL IMPLNT N/A 09/16/2024 @PERQ TRANSCATH CLOSURE LEFT ATRIAL APPENDAGE W ENDOCARDIAL IMPLANT, INC RAD S&I (VU 14) performed by Duane Causey MD at [facility] CATH LABS Allergy: Allergies Allergen Reactions [...] brain wo contrast -CTA head & neck -PT/OT/BAG MACHINE ADJUSTER -Neurosurgery consulted # Leukocytosis # Pneumonia - on Zosyn (09/24 - 09/29) - CBC - ID consult - C. Diff negative # Prophylaxis -heparin 5000units SC Q8H -RBOs -SCDs # Supportive care -NPO -Tylenol PRN -Up with assistance # FULL code Stroke Navigator Completed: Yes Umm Goodrich MD Vascular Neurology Pager [phone] Standard [facility] Swallow Screen: This screen is to be [...] diet as medical provider deems appropriate. Consider BAG MACHINE ADJUSTER consult for full evaluation and diet recommendations. [...] be 2/2 to CAA who presented to [facility] [place] for watchman procedure subsequently developing a [...] 15) performed by Xiomara Burkett MD at [facility] MAIN OR Social History Tobacco Use [...] 24 hour(s)) Type and Screen Future Surgery, [facility] SAME DAY PROGRAM ONLY) Result Value Ref Range PATIENT HISTORY Found Expires at 2359 on: 09-19-2024 ABORH Type O POSITIVE ANTIBODY SCREEN AUTOMATED Negative T&S only valid at [facility] LAB CBC (with Diff) Result Value Ref [...] Information Issued Product Identification APH-PLTS Unit Number [id number] Product Code [id number] Unit Blood Type APOS Specimen Expiration Date Volulme 236 Issue Date / Time POC, GLUCOSE Result Value Ref Range Glucometer, POC 170 65 - 199 mg/dL Prepare RBC Result Value Ref Range Status Information Returned Product Identification RBC Unit Number [id number] Product Code [id number] Unit Blood Type OPOS Specimen Expiration Date Volulme 350 Issue Date / Time Status Information Returned Product Identification RBC Unit Number [id number] Product Code F8033P02 Unit Blood Type OPOS Specimen Expiration Date Volulme 350 Issue Date / Time Status Information Returned Product Identification RBC Unit Number [id number] Product Code [id number] Unit Blood Type OPOS Specimen Expiration Date Volulme 350 Issue Date / Time Imaging: Results for orders placed or performed during the hospital encounter of 09/16/24 CT Head wo Contrast (Generic) (Exam End: 09/16/2024 5:26 PM) Result Value WORKSTATION ID [id number] Narrative EXAMINATION: CT HEAD WO CONTRAST (GENERIC) [...] who have questions please contact the health customer care agent that requested your imaging first. Cardiac Catheterization (Exam End: 09/16/2024 3:16 PM) [facility] Cardiac Catheterization/Intervention Report Patient Name: Lucero Bruno Procedure Date: 09/16/2024 A #: [id number] Primary Physician: Duane Causey V Case #: [id number] File Name: [id number] Catheterization Order Number: [id number] [facility] Final Report [place], [place] Patient Name: Lucero HenriquezBertin Damion ID#: [id number] : 1950 Procedure Date: September 16, 2024 [...] was designated as ASA Class III. The [facility] clinical frailty scale is 5: Mildly Frail. Diagnostic Tests: Prior Coronary Angiography: LV ejection fraction within 6 months is 75%. Electrocardiography: EKG was assessed by ECG. Medications Prior to Procedure: Aspirin and Calcium Channel Blocking Agent. Indications for Diagnostic Cath: The priority of the diagnostic procedure was Elective. The indication for the slab off mill tender visit is cardiac arrhythmia. Chest pain symptom assessment was: Asymptomatic. Technique: A 17Fr sheath was inserted in the right femoral vein utilizing the Seldinger technique. The left atrium was injected utilizing a 6Fr PIGTAIL catheter. Left atrial pressure was performed with a 6Fr ANGLED PIGTAIL catheter. Transseptal puncture was performed with an 8.5Fr Junar NRG RF Needle. 7,000 units of heparin [...] for atrial fibrillation. The patient had a [id number] score of 4, a HAS-BLED score of [...] Watchman FLX Closure Device 27 mm (s/l/n [id number]) was prepared and deployed using standard technique. [...] to nor was it given in the slab off mill tender. Recommended anti-platelet/anti-thrombotic regimen: Continue aspirin 81 mg daily for indefinitely. These recommendations are made at the time of the intervention. Patient and provider preferences or a changing clinical situation may require modification of this regimen. Consult [facility] Interventional Cardiology for questions. Conclusions: * Successful [...] NBP in all extremities. 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 HAS-BLEd > 3. She continues [...] a Transseptal puncture was performed using the Junar VersaCross System. A WM TruSteer sheath was tracked across the inter-atrial septum without difficulty. An angled angiographic pig tail catheter (6Fr) was then positioned in the ANGUS through which an angiogram was performed showing anatomy c/w MONICA findings (LA = 12 mmHg). A Watchman FLX-Pro 27 mm ([id number]) was prepped according to the Torpedo Worker's IFU with special attention to elimante all air The WM/Delivery system was introduced into the access sheath, positioned in the ANGUS and deployed. Initial deployment was too proximal. The device was repositioned and deployed two additional times after which demonstrated the dev ice to be be in good position A post-tug test formal MONCIA evaluation showed the device to be well [...] ADRIANA Phillip Interventional Cardiology 09/16/24 4:16 PM [facility] Pager: [phone] * Amari Colbert PA - 09/16/2024 1:18 PM EDT Patient Name: Lucero Bruno Patient Age: 74 y.o. Birthdate: 1950 Admit date: 09/16/2024 Attending Physician: Duane Lazcano MD [facility] Interventional Cardiology Structural Heart Program Adult Pre-Procedure H&P Update: Left Atrial Appendage Occlusion, percutaneous Lucero Bruno [id number] 1950 Chief Complaint: Atrial fibrillation, elevated stroke risk Inability to tolerate systemic anticoagulation HPI: Lucero Bruno is a 74 y.o. female referred for cardiac catheterization by her primary care cardiology provider Iliana Carpenter APRN ([employer] cards) for evaluation of cardiac hemodynamics, left [...] suffered a hemorrhagic stroke shortly after elective leacher / hysterectomysurgery. HAS-BLEd > 3. She continues [...] SO chase here with her Live in [place], [place] Outpatient Medications Marked as Taking for [...] ADRIANA Phillip Interventional Cardiology 09/16/24 1:18 PM [facility] Pager: [phone] documented in this encounter Procedure Notes * [...] related orders have been discontinued. Please page [phone] with questions regarding this patient. ADRIANA Leonardo * Bonnie Vazquez PA - 09/21/2024 12:55 PM EDTAssociated Order(s): INTUBATION Intubation Procedure Note Reason for Intubation: Airway obstruction and Airway protection. Procedure Diagnosis: Respiratory distress [facility] Risks and Benefits: The risks and benefits [...] intubation status comments: First attempt by this promotion writer. Encountered lots of oral secretions with [...] cru at 1530. Neuro check complete, notified ADRIANA Colbert in to assess pt. Orders obtained for acetaminophen. [...] named jose Pollard as agent and s/o Chsae San as alternate [phone] ( this is pts cell phone) * Care Management - Anupama Pastrana RN - 10/11/2024 4:15 PM EST OFFICE OF CARE MANAGEMENT PROGRESS NOTE LOS: Hospital Day 25 days Chart reviewed, care reviewed with primary team and at interdisciplinary rounds. 10/11/2024 patient offered and accepted SNF bed at [facility] in [place], [place]. Jose Pollard notified of same and in agreement with the plan. Medical Decision Maker: JORDAN, Surrogate *surrogate is jose Pollard Guardianship needed: 0 Surrogate Name: Don Pollard Surrogate Contact Information: cell: [phone] Financial Decision Maker: Self Functional status prior [...] Insurance: MEDICAID [place] Last Physical Therapy Recommendation: residential facility with to be determined (10/11/24 1001) Last Occupational Therapy Recommendation: residential facility with to be determined (10/11/24 2578) Plan for discharge is: Pending Hospital Course and PT/OT Recommendations Outpatient Agency/Support Group Needs: Clinic(s) Agency Choices: [facility] [place] clinic Agency Referrals: Not Applicable Transportation: family or friend will provide Barriers to discharge: Global: Discharge planning Global Comment: the patient may benefit from an inpatient rehab stay prior to returning home. Psychosocial: *lengthy recovery anticipated; appreciative of support from [facility] care teams Supports: *RANDY Olson, has pets at home ICU Needs: none / ready for downgrade *no longer with ICU needs Plan: Patient is medically ready per medical team. Plan going forward is: discharge to SNF [facility] 10/12/2024. Anticipated Date of Discharge: 10/12/2024 Anupama Pastrana MSN, RN ACM-RN [facility] environmental solutions engineer * Care Management - Anupama Pastrana RN - 10/11/2024 12:50 PM EST OFFICE OF CARE MANAGEMENT PROGRESS NOTE LOS: Hospital Day 25 days Chart reviewed, care reviewed with primary team and at interdisciplinary rounds. Medical Decision Maker: JOSE-HC, Surrogate *surrogate is jose Pollard Guardianship needed: 0 Surrogate Name: Don Pollard Surrogate Contact Information: cell: [phone] Financial Decision Maker: Self Functional status prior [...] Insurance: MEDICAID [place] Last Physical Therapy Recommendation: residential facility with to be determined (10/11/24 1001) Last Occupational Therapy Recommendation: residential facility with to be determined (10/06/24 1328) Plan for discharge is: Pending Hospital Course and PT/OT Recommendations Outpatient Agency/Support Group Needs: Clinic(s) Agency Choices: [facility] clinic Agency Referrals: I have met with the patient and son Don Pollard who has requested to have referrals be expanded to: [facility] ([facility]) [address] [place] [address] [facility] ([facility]) [address] [place] [address] [facility] [address] [place] [address] Note routed to a Advertising Dispatch Clerk who will communicate referrals to facilities and provide any required information. Transportation: family or friend will provide v medical transportation Barriers to discharge: Global: Discharge planning Global Comment: the patient may benefit from an inpatient rehab stay prior to returning home. Psychosocial: *lengthy recovery anticipated; appreciative of support from [facility] care teams Supports: *RANDY Olson, has pets at home ICU Needs: none / ready for downgrade *no longer with ICU needs Plan: Patient is medically ready per medical team. Plan going forward is: expand SNF referrals Anticipated Date of Discharge: 10/15/2024 Anupama Pastrana, MSN, RN ACM-RN [facility] environmental solutions engineer * Plan of Care - Latosha Winston RN - 10/11/2024 11:21 AM EST Pt is A/O x3, currently on RA however requires NC intermittently has hx of CHRISTOPHER but refuses CPAP. VSS, Pain appears controlled today reports trazadone helped her sleep last night. PT OOB to chair today with lift and PT/OT, BAG MACHINE ADJUSTER to see as well. Tolerating bolus TF. [...] as Appropriate) * Plan of [place] - Kaelyn Acuña RN - 10/11/2024 5:49 [...] TF adjusted to bolus 10/07; followed by BAG MACHINE ADJUSTER (PEG placed 10/04) Appears more interactive; participates in conversation appropriately. Family/SO remain very supportive and involved Guardianship needed: 0 Surrogate Name: Don Pollard Surrogate Contact Information: cell: [phone] Financial Decision Maker: Self Functional status prior [...] Insurance: MEDICAID [place] Last Physical Therapy Recommendation: residential facility with to be determined (10/06/24 1324) Last Occupational Therapy Recommendation: residential facility with to be determined (10/06/24 1328) Plan for discharge is: Pending Hospital Course and PT/OT Recommendations Outpatient Agency/Support Group Needs: Clinic(s) Agency Choices: [facility] Agency Referrals: I have met with the outside sales account representative, who has requested to have referrals be expanded. First choice would be [facility] in [place], [place]; bed update requested in [facility] [address] [facility]. Please refer to additional progress note 10/08/2024 for expanded referral choices. Note routed to a Advertising Dispatch Clerk who will communicate referrals to facilities and provide any required information. Transportation: family or friend will provide Barriers to discharge: Global: Discharge planning Global Comment: the patient may benefit from an inpatient rehab stay prior to returning home. Psychosocial: *lengthy recovery anticipated; appreciative of support from [facility] care teams Supports: *son RANDY Ochoa, has pets at home ICU Needs: none / ready for downgrade *no longer with ICU needs Plan: Patient is medically ready per medical team. Plan going forward is: continue to pursue SNF bed Anticipated Date of Discharge: 10/11/2024 Anupama Pastrana, MSN, RN OCM-RN [facility] environmental solutions engineer * Consult Note - Sonia Mac, GUEST ROOM INSPECTOR - 10/08/2024 10:10 AM EST Images from [...] op and CT scan noted large R bjrzxrlf-yuaihfd-iojrwcabs IPH. Now s/p R craniotomy for IPH [...] free water 30 mL FEEDING TUBE Q[facility]H [facility] Diet Tube Feed: Nutren 1.5 (standard, energy-dense) (1.5 kcal/mL) Per G Tube 4 Times Daily protein powder 2 Scoop Per G Tube TID insulin lispro 2-12 Units Subcutaneous Q[facility]H [facility] insulin lispro 0-8 Units Subcutaneous 4 Times Daily amLODIPine 5 mg Per G Tube Daily dilTIAZem 90 mg Per G Tube Q6H [facility] multivitamin with minerals 1 tablet Per G [...] op and CT scan noted large R vhuhqtie-cwqrjyo-yyrnoaovs IPH. Now s/p R craniotomy for IPH [...] Mac APRN Endocrinology Diabetes Management Service Pager: [phone] Weekends please page [phone] 80 minute visit was spent in counseling [...] Insurance: MEDICAID [place] Last Physical Therapy Recommendation: residential facility with to be determined (10/04/24 1025) Last Occupational Therapy Recommendation: residential facility with to be determined (10/04/24 0974) Plan for discharge is: Pending Hospital Course and PT/OT Recommendations Outpatient Agency/Support Group Needs: Clinic(s) Agency Choices: [facility] clinic Agency Referrals: I have met with the outside sales account representative, who has requested to have referrals be expanded to: [facility] [address] [place] [address] [address] [facility] [address] [place] [id number] This note promotion writer spoke with [facility] admission coordinator (Akiko) who stated that there are no female SNF beds available at this time. Akiko will update the referral placed in [facility]. Jose Ochoa updated with the above; as such, agreeable to expand referrals. Note routed to a Advertising Dispatch Clerk who will communicate referrals to facilities and [...] SNF referrals Anticipated Date of Discharge: 10/08/2024 Anupmaa Pastrana, MSN, RN ACM-RN [facility] environmental solutions engineer * Plan of Care - Anabel De La Garza RN - 10/05/2024 1:42 PM EST OUTCOME EVALUATION NOTE: OUTCOME SUMMARY: Pt VSS on RA, no complaints of pain, tolerating TF well, Flexi removed due to decreased output, Neuro exam unchanged from previous day, no new orders today. PLAN MOVING FORWARD: Q2 VS, NC & I&O PT/OT/BAG MACHINE ADJUSTER INDIVIDUALIZED FALL PREVENTION INTERVENTIONS: Patient-specific fall risk [...] MOVING FORWARD: Q2 VS, NC & I&O PT/OT/BAG MACHINE ADJUSTER q4h FSG INDIVIDUALIZED FALL PREVENTION INTERVENTIONS: Patient-specific [...] MOVING FORWARD: Q2 VS, NC & I&O PT/OT/BAG MACHINE ADJUSTER INDIVIDUALIZED FALL PREVENTION INTERVENTIONS: Patient-specific fall risk [...] Role Xenia Acuña X-Ray Technologist Brad Lubin bulk sealer operator Nurse Jony Sampson MD Attending Post-operative diagnosis/Indication: [...] Butler Urgency Level: Call Me Callback Number: [phone] The following Message was sent: [Call Me] - Callback:[phone] Alfred Bruno Pupils sluggish, L is 5cm, and right [...] Situation: Asked to see Lucero Bruno by [facility] fish frog or oyster farmer for skin concerns of the right butt, [...] chat or the wound care team at [phone] or pager [phone] with skin and wound care concerns or [...] satisfactory saturations. Working with and followed by PT/OT/BAG MACHINE ADJUSTER. Ongoing dysphagia concerning; PEG conversation planned. Labs [...] Insurance: MEDICAID [place] Last Physical Therapy Recommendation: residential facility with to be determined Last Occupational Therapy Recommendation: residential facility with to be determined Plan for discharge is: Pending Hospital Course and PT/OT Recommendations Outpatient Agency/Support Group Needs: Clinic(s) Agency Choices: [facility] clinic Agency Referrals: Not Applicable; SNF referral to [facility] in [place], [place]. No bed offer at this time. ADDENDUM 09/28/2024: VM left for Admissions/SW at [facility] requesting update. May need to expand referrals if [facility] declines. May need to expand referral base; son lives in [place], [place] but SO Chase (who has health issueshimself) lives in [place]. Further discussion planned. Transportation: family or [...] Discharge: 09/30/2024 Anupama Pastrana MSN, RN ACM-RN [facility] environmental solutions engineer * Plan of Care - Matheus Coates [...] no output since 0800, NPO give meds, BAG MACHINE ADJUSTER eval approved ice chips intermittently (RN did [...] date: 09/16/2024 Attending: Dr. Paul CC: R [facility] Date last well known:: 09/16/24 Time [...] I/O 24 Hours: 09/26 701 - 09/27 07 In: 2959.3 [I.V.:529.3] Out: 5410 [Urine:4385] I/O this shift: In: 330 [I.V.:60; NG/GT:160; IV Piggyback:50] Out: 130 [Urine:80; Stool:50] Recent Labs 09/27/2413709/26/243009/25/2442809/24/24 0500 09/23/24 0101 WBC 39.03* 30.94* 27.24* 19.25* 19.97* HGB 12.5 10.7* 10.5* 9.7* 10.0* HCT 37.4 32.2* 31.9* 30.6* 30.1* PLATELET 510* 434* 379* 342 293 NEUTROABS 33.22* 23.25* 23.24* 16.30* 16.80* Recent Labs 09/27/2413709/26/24121509/26/2435 09/26/24 0031 09/25/24 0429 09/24/24 0500 NA 139 -- 137 137 138 138 K 3.8 4.2 3.7 3.7 4.1 4.2 CL 103 -- 104 104 102 102 CO2 25 -- 23 23 24 26 BUN 17 -- 23* 26* 28* 28* CREATININE 0.51* -- 0.53* 0.56* 0.49* 0.51* GLUCOSE 148 -- 153 179 185 202* Recent Labs 09/27/2413709/26/2463409/26/243009/25/24 042 CALCIUM 8.5 8.1* 7.9* 8.4* MAGNESIUM 0.91 -- 0.78 0.91 PHOS 4.0 3.3 3.1 3.4 Recent Labs 09/26/24 0635 09/23/24 0756 AST 28 18 ALT 72* 56* ALKPHOS 81 80 BILITOT 0.4 0.3 BILIDIR <0.2 <0.2 Recent Labs 09/26/24 0635 CK 78 No results for input(s): PHART, VHU0USQ, PO2ART, BTH0YTM in the last 168 hours. No results [...] 09/16/2024 5:26 PM) Result Value WORKSTATION ID [id number] Impression Interval expansion of now large right-sided [...] who have questions please contact the health customer care agent that requested your imaging first. Electronically signed by: aLna Reinoso [facility] ([phone]), at 09/16/2024 6:[address] Head wo Contrast (Generic) (Exam End: 09/16/2024 11:21 PM) Result Value WORKSTATION ID [id number] Impression CT head: 1. Interval craniotomy with [...] who have questions please contact the health customer care agent that requested your imaging first. Electronically signed by: Armando Pan MD, [facility] ([phone]), at 09/17/2024 1:[address] Venogram Brain (Exam End: 09/16/2024 11:21 PM) Result Value WORKSTATION ID [id number] Impression CT head: 1. Interval craniotomy with [...] who have questions please contact the health customer care agent that requested your imaging first. Electronically signed by: Armando Pan MD, [facility] ([phone]), at 09/17/2024 1:42 AM XR Chest One View (Exam End: 09/16/2024 11:00 PM) Result Value WORKSTATION ID [id number] Impression Satisfactorily positioned enteric and endotracheal tubes. Left lower lobe atelectasis versus pneumonia. Thank you for letting us participate in the care of this patient. If you are a health care provider and have any questions regarding this report, please contact the number below. For patients who have questions please contact the health customer care agent that requested your imaging first. Electronically signed by: Pamela Beard MD, [facility] ([phone]), at 09/17/2024 12:09 AM XR Abdomen 1 view (Generic) (Exam End: 09/16/2024 11:00 PM) Result Value WORKSTATION ID [id number] Impression Satisfactorily positioned enteric and endotracheal tubes. Left lower lobe atelectasis versus pneumonia. Thank you for letting us participate in the care of this patient. If you are a health care provider and have any questions regarding this report, please contact the number below. For patients who have questions please contact the health customer care agent that requested your imaging first. Electronically signed by: Pamela Beard MD, [facility] ([phone]), at 09/17/2024 12:[address] Head wo Contrast (Generic) (Exam End: 09/17/2024 4:51 AM) Result Value WORKSTATION ID [id number] Impression Increased size and density of dominant [...] who have questions please contact the health customer care agent that requested your imaging first. Electronically signed by: Elvin Bolden DO, [facility] ([phone]), at 09/17/2024 8:38 AM XR Chest One View (Exam End: 09/17/2024 2:13 PM) Result Value WORKSTATION ID [id number] Impression 1. No focal opacity in lung [...] who have questions please contact the health customer care agent that requested your imaging first. Electronically signed by: Zoey Zabala MD, [facility] ([phone]), at 09/17/2024 2:43 PM XR Chest One View (Exam End: 09/18/2024 8:43 AM) Result Value WORKSTATION ID [id number] Impression Tubes and lines as described. Blunting of the left costophrenic angle suggests tiny layering left effusion with associated left basilar consolidation/atelectasis Thank you for letting us participate in the care of this patient. If you are a health care provider and have any questions regarding this report, please contact the number below. For patients who have questions please contact the health customer care agent that requested your imaging first. Abdomen 1 view (Generic) (Exam End: 09/18/2024 12:31 PM) Result Value WORKSTATION ID [id number] Impression Dobbhoff tube tip along the greater curve of the stomach. Thank you for letting us participate in the care of this patient. If you are a health care provider and have any questions regarding this report, please contact the number below. For patients who have questions please contact the health customer care agent that requested your imaging first. Electronically signed by: Arie Bhat [facility] ([phone]), at 09/18/2024 1:05 PM MRI Brain wwo Contrast (Generic) (Exam End: 09/19/2024 5:43 PM) Result Value WORKSTATION ID [id number] Impression Unchanged size of large right cerebral hemisphere ICH status post partial evacuation. Numerous small foci of decreased acute infarction both along and separate from the site of hemorrhage. These foci are present in both cerebral hemispheres and have a pattern most consistent with embolic infarction. No evidence of NEON MOLDER malignancy Thank you for letting us participate in the care of this patient. If you are a health care provider and have any questions regarding this report, please contact the number below. For patients who have questions please contact the health customer care agent that requested your imaging first. Electronically signed by: Rios Swartz MD, [facility] ([phone]), at 09/20/2024 8:[address] Head wo Contrast (Generic) (Exam End: 09/21/2024 3:50 AM) Result Value WORKSTATION ID [id number] Impression Stable hemorrhage right temporal, parietal, right [...] who have questions please contact the health customer care agent that requested your imaging first. Electronically signed by: Armando Pan MD, [facility] ([phone]), at 09/21/2024 4:55 AM XR Abdomen 1 view (Generic) (Exam End: 09/21/2024 2:01 PM) Result Value WORKSTATION ID [id number] Impression Dobbhoff tube and enteric tube sidehole [...] who have questions please contact the health customer care agent that requested your imaging first. Electronically signed by: Shraddha Cox MD, [facility] ([phone]), at 09/21/2024 3:40 PM XR Chest One View (Exam End: 09/21/2024 2:01 PM) Result Value WORKSTATION ID [id number] Impression ET tube with tip projecting approximately [...] who have questions please contact the health customer care agent that requested your imaging first. Electronically signed by: Octavio Scott MD, [facility] ([phone]), at 09/21/2024 5:[address] Head wo Contrast (Generic) (Exam End: 09/22/2024 4:02 AM) Result Value WORKSTATION ID [id number] Impression Stable head CT status post removal of subcutaneous drain. No new or enlarging hemorrhage. Stable pattern of mass effect Thank you for letting us participate in the care of this patient. If you are a health care provider and have any questions regarding this report, please contact the number below. For patients who have questions please contact the health customer care agent that requested your imaging first. Electronically signed by: Armando Pan MD, [facility] ([phone]), at 09/22/2024 4:[address] Angiogram Chest for Pulmonary Embolus w Contrast (Exam End: 09/26/2024 1:37 PM) Result Value WORKSTATION ID [id number] Impression 1. No pulmonary embolism. 2. Pulmonary [...] who have questions please contact the health customer care agent that requested your imaging first. Electronically signed by: Marvin Decker DO, [facility] ([phone]), at 09/26/2024 1:[address] Head wo Contrast (Generic) (Exam End: 09/26/2024 1:37 PM) Result Value WORKSTATION ID [id number] Impression 1. Stable right-sided parenchymal and subdural [...] who have questions please contact the health customer care agent that requested your imaging first. Electronically signed by: Smiley Cordova MD, [facility] ([phone]), at 09/26/2024 2:[address] Abdomen & Pelvis w Contrast (Exam End: 09/26/2024 1:37 PM) Result Value WORKSTATION ID [id number] Impression 1. No pulmonary embolism. 2. Pulmonary [...] who have questions please contact the health customer care agent that requested your imaging first. Electronically signed by: Marvin Decker DO, [facility] ([phone]), at 09/26/2024 1:54 PM Assessment and Plan: [...] to follow Please page Vascular Neurology at #[phone] with any questions. Umm Goodrich MD Neurology, PGY3 Department of Neurology [place] [phone] Associated attestation - Dinesh Bauer MD - [...] file). * Initial Assessments - Areli Hathaway, BAG MACHINE ADJUSTER - 09/27/2024 11:31 AM EST Speech Therapy Clinical Swallow Evaluation Patient Profile: Lucero Bruno is a 74 y.o. female with PMHx of A-fib, CHRISTOPHER, HLD, and prior IPH (04/2024) who presented [place] [facility] [place] 09[place] for placement of Watchman with cardiology. She developed headaches and nausea post-operatively and was found to have a large R oqgfsgpk-wnolbll-yaquhqcgs IPH, now s/p craniotomy. Patient was intubated from 09/16-09/21 with extubation complicated by stridor requiring re-intubation from 09/21-09/26 (11 days total). BAG MACHINE ADJUSTER was consulted on 09/21 per CVA protocol [...] Comments Thin liquids X Water via swab Malmo thick liquids Honey thick liquids Pureed solids [...] ice chips for comfort and practice between BAG MACHINE ADJUSTER sessions. We will continue to perform serial [...] aspiration pneumonia Pt will benefit from continued BAG MACHINE ADJUSTER services while hospitalized Speech Therapy Goals: (To be met by discharge) Pt will tolerate the least restrictive diet without further respiratory decompensation. NEW Pt / caregiver will be independent with aspiration precautions, diet modifications, and safe swallowing strategies. NEW Plan: Therapy Frequency (BAG MACHINE ADJUSTER Eval): 3-5 times/wk Patient is in agreement with the plan of care. Total Minutes (Speech Language Pathology): 35 Thanks for the opportunity to contribute to this patient's care. Please feel free to page me with any questions or concerns. Areli Hathaway MS, [facility]-BAG MACHINE ADJUSTER Speech-Language Pathologist Inpatient Rehabilitation Pager # [phone] * Plan of Care - Jose Franco [...] with you. Please call with questions, pager [phone]. Discussed with attending, Dr. Gabriel. Chino Washburn [...] on the date of service on the zpeh-xc-hzca encounter, chart review, clinical decision making, documentation, and coordination of care. Rae Gabriel MD Professor, Department of Medicine Page [phone] * Plan of Care - Eleazar Mc [...] to be determined Last Occupational Therapy Recommendation: residential facility with to be determined Patient is insured through: Primary Insurance: MEDICARE Payor: MEDICARE / Plan: MEDICARE PART A & B / Product Type: *No Product type* / Secondary Insurance: MEDICAID [place] Prescription Coverage: Yes Preferred Pharmacy: [facility] [address] [address] Plan for discharge is: Pending Hospital Course and PT/OT Recommendations Agency Referrals & Follow-up Care: Based on discussions with the multi-disciplinary healthcare team, the patient would benefit from SNF level of care at discharge. I have met with the outside sales account representative (son Don Pollard) to: discuss discharge planning needs. provide the [facility], Office of Care Management letter from the [place] pertaining to rehab referrals. provide a letter describing our affiliations within the [facility] and educate about their right to choose where referrals are sent. provide the CMS Star Quality Rating handout. review the different levels of rehab including SNF, swing, and acute. provide a list of facilities within their preferred geographic area. request that they provide at least three choices for referral. They have requested referrals to: [facility] and [facility] [address] [place] [address] Note routed to a Advertising Dispatch Clerk who will communicate referrals to facilities and provide any required information. Transportation: family or friend will provide Barriers to discharge: Discharge planning Plan going forward: Care Management will continue to follow and assist with discharge planning and coordination of care as indicated. 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 CAA who presented to [facility] today for watchman procedure subsequently developing a [...] 0.63) performed by Sushila Espinal MD at [facility] MAIN OR PRO LAPAROSCOPY W TOT HYSTERECTUTERUS <=250 GRAM W TUBE/OVARY N/A 04/23/2024 LAPAROSCOPY, TOTAL HYST, UTERUS<250GMS, REM TUBE &/OR OVARY (WRVU 15) performed by Xiomara Burektt MD at [facility] MAIN OR PRO OPEN SKULL EVAC INTRACEREBR BLOOD Right 09/16/2024 @CRANI-HEMATOMA EVACUATION, INTRACEREBRAL (WRVU 28.09) performed by Sushila Espinal MD at [facility] MAIN OR Subjective: Pt received in [...] wrist restraints Vision & Perception: corrective lenses 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 Communication: communicated through thumbs up/down and nodding [...] to be determined Anticipated Discharge Disposition (OT): residential facility Other Recommendations: EPM Level 1: HOB [...] 2-3 times/wk Total Minutes, Occupational Therapy: 18 ([id number]) Planned OT interventions: Role of occupational therapy/rehabilitation, [...] They/Them Occupational Therapy Rehabilitation Department Pager # [phone] * Care Management - Xenia Crane RN [...] Outpatient Agency/Support Group Needs: Clinic(s) Agency Choices: [facility] [place] clinic Agency Referrals: Not Applicable Transportation: family [...] 09/27/2024 Office of Care Management Float / accounting lecturer clinic charge nurse [email or web address] Pager #[phone] * Plan of Care - Seth Wade RN - 09/21/2024 6:35 PM EDT OUTCOME EVALUATION NOTE: OUTCOME SUMMARY: Pt intubated, on PS, 8/8, 40% FiO2, copious thick secretions. Pt A&Ox4, follows command with RUE and RLE, LUE and LLE withdraw from painful stimuli. Pt in NSR, SBP goal of 90-160 maintained. Hill AUOP, BMx1 this shift. EVENTS: ~1200 pt extubated and reintubated ~1230 d/t labored breathing ~1330- right parietal drain removed per Neurosurg team PLAN MOVING FORWARD: Q2 I&Os Q2 neuro checks Q1 VS Activity as tolerated Q4 BG 09/22 [facility] 0400 CPG GOAL OUTCOME EVALUATION: Problem: Adjustment [...] Outpatient Agency/Support Group Needs: Clinic(s) Agency Choices: [facility] clinic Agency Referrals: ELECTRICAL APPLIANCE SERVICER services- will send a referral once patient [...] of Discharge: 09/27/2024 Office of Care Management research associate molecular biology environmental solutions engineer Stephanie Louise MSN [email or web address] [phone] pager [phone] * Plan of Care - Vernon Leos RN - 09/21/2024 1:53 AM EDT Summary of hospitalization: Lucero Bruno is a 74 y.o. 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 who presented to [facility] today for watchman procedure subsequently developing a [...] 0.63) performed by Sushila Espinal MD at [facility] MAIN OR PRO LAPAROSCOPY W TOT HYSTERECTUTERUS <=250 GRAM W TUBE/OVARY N/A 04/23/2024 LAPAROSCOPY, TOTAL HYST, UTERUS<250GMS, REM TUBE &/OR OVARY (WRVU 15) performed by Xiomara Burkett MD at [facility] MAIN OR PRO OPEN SKULL EVAC INTRACEREBR BLOOD Right 09/16/2024 @CRANI-HEMATOMA EVACUATION, INTRACEREBRAL (WRVU 28.09) performed by Sushila Espinal MD at [facility] MAIN OR Status: Stable Subjective/Objective: gesturing to have ETT removed Assessment: see DocFlow for details, otherwise significant highlights include the following: N/pain: [id number] (E4V1M6). Anxiolytic gtt titrated to RASS 0Neuro [...] approx with stacey, scant dried old blood, PLASTER WHITTLER. Endo: FSBS q4h, coverage via standing/SSI, see eMAR. ID: Afebrile. Abx/virals: none. Noting uptrending WBC, LD: see Avatar. SG drain with minimum sanguinous output (<20mL over 12h) Act: T&R q2h whilst in bed, pROM LUE/LLE q2h. Social: no callers/visitors overnight. Plan/Recommendation: CTH result pending Order PT/OT/BAG MACHINE ADJUSTER Potential extubation today Monitor for signs of [...] Initial Assessment with patient's son, Don Pollard [phone], andchart review. Patient is not medically stable for discharge at this time. * Ruma Gonzalez - Evelyn Matute MSW - 09/17/2024 2:35 [...] Patient's son is primary support, Johnathon, and SO Chase, who lives close to the patient. [...] Employment / Comments: Financial Source of Income: pension/detention, social security Financial / Environmental Concerns: Utilities Shut off: No Food Insecurity Worry: Never true Inability to pay for food: Never true Who Manages Finances if Patient Unable: Patient Public Assistance Status Comments: Finance Comments: Legal Legal Concers that Impact Hospitalization: none MENTAL / BEHAVIORAL HEALTH Values / Beliefs Catholic / Spiritual Practices and Beliefs : Deferred Coping / Stress Major Change / Loss / Stressor: none Patient Personal Strengths: able to adapt Sources of Support: adult child(yen), significant other Techniques to [place] with Loss/Stress/Change: medication Reaction to Health Status: [...] cardiology provider Iliana Carpenter APRN ([facility] cards/[place] cards) for evaluation of cardiac hemodynamics, left atrial appendage anatomy, and implantation of left atrial appendage occlusion device (Watchman FLX) if indicated. Patient is unable to respond to questions at this time. COMMERCIAL REAL ESTATE SALES MANAGER reviewed medical chart and completed the Initial [...] and use the stairs. Social Work Plan: COMMERCIAL REAL ESTATE SALES MANAGER and environmental solutions engineer will continue to follow patient with the medical team through rounds and updated medical notes. COMMERCIAL REAL ESTATE SALES MANAGER will continue to communicate with patient and [...] surrogate would be surrogate decision maker per [place] decision making law. (Only good for 180 days) Any patient receiving care in [place] must abide by [place] law. The hierarchy for surrogate decision making is: (a) Patient???s spouse or civil union partner unless there is a divorce proceeding, separation agreement, or restraining order limiting that person???s relationship with the patient. (b) Any adult son Don Pollard ([phone]) or daughter of the patient. (c) Either parent of the patient. (d) Any adult brother or sister of the patient. (e) Any adult grandchild of the patient. (f) Any grandparent of the patient. (g) Any adult aunt, uncle, niece, or nephew of the patient. (h) A close friend of the patient. (i) The agent with financial power of tax associate attorney or a conservator appointed in accordance [...] Arrangements: home/apartment/condo. Accessibility Concerns:single family residence in [place], [place]. multi level. 5 ZAIN.. In the last 12 months, was there a time when you were not able to pay the mortgage or rent on time?: No In the past 12 months, how many times have you moved where you were living?: 0 At any time in the past 12 months, were you homeless or living in a jail (including now)?: No In the past 12 months has the [employer], gas, oil, or water Faves threatened to shut off services in your [...] Home Address confirmed as: [address] [facility] [address] 09/17/2024 Physical Address: [address] [place] [address] , [place] [address] Social & Family Supports: All names listed below confirmed with patient as current and correct Extended Emergency Contact Information Primary Emergency Contact: Don Pollard Mobile Relation: Child Current Care Provided by: self, other (see comments) ([facility] nursing care team) Provides Primary Care For: no one, unable/limited ability to care for self Caregiver if needed: unable to assess Quality of Family relationships: helpful, involved, supportive (son Don Pollard at bedside) Community Resources being provided currently: clinic(s) ([place] [facility] Cardi) Behavioral Health History: history of stroke [...] Other Pertinent/Service Specific Information: patient was at [facility] [place] with similar presentation. Health/Prescription Coverage: Primary Insurance: MEDICARE Payor: MEDICARE / Plan: MEDICARE PART A & B / Product Type: *No Product type* / Secondary Insurance: MEDICAID [place] ONLY if patient has Medicare A&B - Does this patient have secondary insurance?: Yes ; Prescription Coverage: Yes Preferred Pharmacy: [facility] - [place], [place] - [address] [place] [address] [place] Status: Patient is a : No Primary Care Provider confirmed: Leila Manjarrez [phone] Patient/Caregiver Goals of Treatment: to recover from Right IPH and return home Potential Needs for Transition of Care: home health care, rehabilitation services, outpatient care (home VNA v inpatient therapy) Agency Referrals: Not Applicable at this time; further conversation planned Transportation: no concerns Transportation Anticipated: family or friend will provide, ambulance Concerns to be Addressed: discharge planning Assessment: Patient is admitted to [facility] (pager [phone]) service for large R IPH Plan going [...] as indicated. 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 VBG (Venous Blood Gas) No results for input(s): PHVEN, KXF9ZFX, PO2VEN, NNI0BMA, LACTATEVEN in the last 168 hours. Mixed Venous Sat No results for input(s): C8VCCV2 in the last 168 hours. Vitals Last [...] 88.7 kg (195 lb 8.8 oz) 09/16/24 220 88.7 kg (195 lb 8.8 oz) 09/16/24 [...] 09/17/24599 Site Signs/Symptoms no swelling;no redness 09/17/24 0600 PIV 09/16/242210 20 gauge metacarpal vein (top [...] Blood Gas) No results for input(s): PHART, TEC6VQR, PO2ART, EGX7HQX, LACTATEVEN, WJX2AVE, PFRATIOART2 in the last 168 hours. VBG (Venous Blood Gas) No results for input(s): PHVEN, BBA7PYO, PO2VEN, PYR0DMY, LACTATEVEN in the last 168 hours. Mixed Venous Sat No results for input(s): Y9NPJE6 in the last 168 hours. Diagnostics: TTE [...] appearance of pericardium. Single atrial septostomy with mpzv-cl-scpkb flow. See report for additional findings. Medications Scheduled Meds: insulin lispro 1-4 Units Subcutaneous Q[facility]H [facility] polyethylene glycoL (MIRALAX) oral powder 17 g Oral Daily chlorhexidine 15 mL Oral BID famotidine 20 mg Per NG tube BID docusate sodium 100 mg Per NG tube BID And sennosides 17.6 mg Per NG tube BID dilTIAZem 60 mg Per NG tube Q6H [facility] Continuous Infusions: propofoL 20 mcg/kg/min (09/17/24 1602) sodium chloride 0.9% 75 mL/hr (09/17/24 0645) [...] details and final recommendations. Eri Stovall, MSN, CUSTOMER SUPPORT REPRESENTATIVE-BC, GUEST ROOM INSPECTOR Structural Heart Pager [phone] 09/17/2024 * Consult Note - Sol Hazel, [...] discuss plan with provider Neurocritical Care Pager #[phone] . Current Nutrition Regimen: Active Orders Diet [...] (antecubital fossa), right 09/16/24 1305-- 1 PIV 09/16/24 221 20 gauge metacarpal vein (top of hand), [...] encounter: 88.7 kg (195 lb 8.8 oz). [place] Body Weight (IBW) (kg): 45.45 Wt Readings [...] identified (TRACE López J Parenteral Enteral Nutr. 2012 March; 36(3): 273-83) Nutrition to continue to follow up while inpatient Sol Hazel, MS, RD, LD Clinical Nutrition * Brief Op Note - Crys Suarez MD - 09/16/2024 9:37 PM EDT Brief Operative Note Patient Name: Lucero Bruno : [id number] MR#: [id number] Case Date: 09/16/2024 Surgeon: Surgeons and Role: [...] Espinal MD - 09/16/2024 5:57 PM EDT [facility] Operative Note Patient Name: Lucero Bruno : [id number] MR#: [id number] Case Date: 09/16/2024 Surgeon: Surgeons and Role: [...] 8.1 by 5.0 by 6.7 cm right jbhzmbv-covbdyj-iyrucijcx intraparenchymal hematoma with 10.5 mm midline shift. [...] was completely shaved and pinned in the [place] head frame and secured to the operating [...] and covered, the patient was removed from [place] head fixation transferred to her ICU bed, [...] Thompson RN - 09/16/2024 5:33 PM EDT [place] [facility]LY RESPONSE TEAM NOTE Name: Lucero Bruno Age: 74 y.o. Sex; Female Date of : 1950 Responding Members: LSRRc X2, Stroke team Date/Time of Admission: 09/16/2024 10:06 AM Unit/Room: laboratory coordinator recovery Service: Cardiology Attending: Dr. Causey Industrial Machine Operator present? Yes Attending Contacted? Yes Time Activated: 16:40 Time Arrived: 16:42 Time at bedside: 1 hr. Indication for Consult: Stroke alert ASSESSMENT Brief 24 hr history: Patient s/p Watchman procedure, developed 10/10 worst [...] Raya PA - 09/16/2024 5:11 PM EDT [facility] NEUROSURGERY CONSULT NOTE ID: Lucero Bruno 74 y.o. female : 1950 Consult Requesting Service: Cardiology Consult Requesting Attending: DUANE CAUSEY V PCP: Leila Manjarrez Time of consultation: 1639 Time of patient evaluation: 1648 Reason for consult: new bleed on CT HISTORY OF PRESENT ILLNESS: Lucero Bruno is a 74 y.o. female with PMHx notable for Afib (taking ASA, previously on apixaban-stopped taking after IPH in April), CHRISTOPHER, HLD, BMI of 36, prior IPH 04/2024 who presented to [facility] for placement of Watchman with cardiology. She [...] 15) performed by Xiomara Burkett MD at [facility] MAIN OR MEDICATIONS: No current facility-administered [...] Don, on the phone who lives in [place]. Don stated his mother would want to [...] AM ECHO INPATIENT ADD-ON MH NI Card [facility] 11/10/2024 8:00 AM Clarisse Duke, RICHARD [facility] NEURO [facility] Neurosurgery Pager: [phone] ADRIANA Lindsey 09/16/2024 5:11 PM Clinical Documentation [...] 168 hours. No results for input(s): PHART, QSE1EJF, PO2ART, CFG7JWM in the last 168 hours. No results [...] medically stable Please page Vascular Neurology at #[phone] with any questions. Umm Goodrich MD Neurology, PGY3 [place] [address] Neurology Attending Attestation I evaluated the patient [...] Procedure Note: Patient Name: Lucero Bruno : [id number] MR#: [id number] Case Date: 09/16/2024 Rope Twisting Machine Operator: Surgeons and Role: Panel 1: * Duane [...] a Transseptal puncture was performed using the Junar VersaCross System. A WM TruSteer sheath was tracked across the inter-atrial septum without difficulty. An angled angiographic pig tail catheter (6Fr) was then positioned in the ANGUS through which an angiogram was performed showing anatomy c/w MONICA findings (LA = 12 mmHg). A Watchman FLX-Pro 27 mm ([id number]) was prepped according to the Torpedo Worker's IFU with special attention to elimante all [...] groggy without apparent complications. Duane Causey MD [facility] supervisor looping Pager [phone] documented in this encounter Plan of Treatment Upcoming Encounters Date Type Department Care Team (Late st Contact Info) Description 11/04/2024 11:15 AM EST Appointment Non-[place] [phone] 11/10/2024 8:00 AM EST Office Visit Neurology at [address] Clarisse Duke APRN [facility] [place] [address] 11/15/2024 10:[address] Scan at [place] [phone] Karli Morales MD [facility] [place] [address] 11/15/2024 11:20 AM EST Office Visit Neurosurgery at [place] [phone] Marvin Kimball PA [facility] [place] [address] 12/15/2024 4:40 PM EST TH Visit (TeleHealth) Cardiology at [place] [phone] Duane Causey MD [facility] [place] [address] Pending Results Name Type Priority Associated Diagnoses [...] 10/11/2024 8:22 PM EST RAPID COVID-19 PCR ([facility]/APD/[facility]) Routine 10/11/2024 4:26 PM EST POC, GLUCOSE [...] PLACEMENT Routine 10/04/2024 1 :00 PM EST POC, GLUCOSE Routine 10/04/2024 8:12 AM [...] 09/23/2024 11:30 AM EDT URINALYSIS BEAKER MICROSCOPIC (MH/YOGESH) STAT 09/23/2024 10:29 AM EDT _URINALYSIS WITH [...] 5:49 PM EDT Us, Head, Real Time (55016) 09/16/2024 5:28 PM EDT R [facility] Open Skull Evac Intracerebr Blood ([id number]) 09/16/2024 5:28 PM EDT R [facility] CT HEAD WO CONTRAST (GENERIC) Routine [...] - 199 mg/dL 10/12/2024 12:[address] [facility] Comment:Supplemental ranges: <140 mg/dL before meals <180 mg/dL all other times of the day. Blood CAPILLARY BLOOD / Unknown 10/12/2024 12:23 PM EST 10/12/2024 12:24 PM EST Karli Morales MD POINT OF CARE TEST O ALDO Performing Organization Address [facility] Co de Phone Number [facility] [place] [address] * POC, GLUCOSE (10/12/2024 11:03 AM EST) Glucometer, POC 188 65 - 199 mg/dL 10/12/2024 11:[address] [facility] Comment:Supplemental ranges: <140 mg/dL before meals <180 mg/dL all other times of the day. Blood CAPILLARY BLOOD / Unknown 10/12/2024 11:03 AM EST 10/12/2024 11:04 AM EST Karli Morales MD POINT OF CARE TEST O RDERAASHLIE 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 Thank you for letting us participate in the care of this patient. ??If you are a health care provider and have any questions regarding this report, please contact the number below. ??For patients who have questions please contact the health customer care agent that requested your imaging first. ? Electronically signed by: Sammy Story MD, [facility] ([phone]), at 10/12/2024 3:39 PM Narrative 10/12/2024 3:39 [...] patients who have questions please contactthe health customer care agent that requested your imaging first. Karli Morales MD IMG DX ORDERABLES * POC, GLUCOSE (10/12/2024 9:10 AM EST) Glucometer, POC 149 65 - 199 mg/dL 10/12/2024 9:[address] [facility] Comment:Supplemental ranges: <140 mg/dL before meals <180 mg/dL all other times of the day. Blood CAPILLARY BLOOD / Unknown 10/12/2024 9:10 AM EST 10/12/2024 9:10 AM EST Karli Morales MD POINT OF CARE TEST O RDERABLES Performing Organization Address City/[facility]/ZIP Co de Phone Number [facility] [place] [address] * POC, GLUCOSE (10/12/2024 7:22 AM EST) Glucometer, POC 146 65 - 199 mg/dL 10/12/2024 7:[address] [facility] Comment:Supplemental ranges: <140 mg/dL before meals <180 mg/dL all other times of the day. Blood CAPILLARY BLOOD / Unknown 10/12/2024 7:22 AM EST 10/12/2024 7:23 AM EST Karli Morales MD POINT OF CARE TEST O RDERAASHLIE [facility] [place] [address] * POC, GLUCOSE (10/12/2024 2:02 AM EST) Glucometer, POC 167 65 - 199 mg/dL 10/12/2024 2:[address] [facility] Comment:Supplemental ranges: <140 mg/dL before meals <180 mg/dL all other times of the day. Blood CAPILLARY BLOOD / Unknown 10/12/2024 2:02 AM EST 10/12/2024 2:03 AM EST Karli Morales MD POINT OF CARE TEST O RDERABLES [facility] [place] [address] * Phosphorus (10/12/2024 12:04 AM EST) Phosphorus 3.3 2.5 - 4.5 mg/dL 10/12/2024 12:[address] [facility] Blood VENOUS BLOOD SPECIMEN / Unknown Venipuncture / Unknown 10/12/2024 12:04 AM EST 10/12/2024 12:23 AM EST Librado Patel MD CHEMISTRY ORDERABLES Performing Organization Address City/[facility] Co de Phone Number [facility] [place] [address] * Magnesium (10/12/2024 12:04 AM EST) Magnesium 0.74 0.69 - 1.07 mMol/L 10/12/2024 12:[address] [facility] Blood VENOUS BLOOD SPECIMEN / Unknown Venipuncture / Unknown 10/12/2024 12:04 AM EST 10/12/2024 12:23 AM EST Librado Patel MD CHEMISTRY ORDERABLES Performing Organization Address City/[facility] Co de Phone Number [facility] [place] [address] * (ABNORMAL) Basic Metabolic Panel (10/12/2024 12:04 AM EST) Glucose 154 65 - 199 mg/dL 10/12/2024 12:52 AM [facility] Comment:Glucose Concentratio n >=200 mg/dL plus symptoms is consistent with Diabetes Mellitus. Blood Urea Nitrogen 23(H) 8 - 18 mg/dL 10/12/2024 12:52 AM [facility] Creatinine 0.40(L) 0.70 - 1.20 mg/dL 10/12/2024 12:52 AM [facility] Sodium 141 135 - 145 mMol/L 10/12/2024 12:52 AM [facility] Potassium 3.9 3.5 - 5.0 mMol/L 10/12/2024 12:52 AM [facility] Chloride 104 98 - 107 mMol/L 10/12/2024 12:52 AM [facility] Carbon Dioxide 27 22 - 31 mMol/L 10/12/2024 12:52 AM [facility] Anion Gap 10 5 - 15 mMol/L 10/12/2024 12:52 AM [facility] Calcium 9.2 8.5 - 10.5 mg/dL 10/12/2024 12:52 AM [facility] Est Glomerular Filtration Rate - Female 105 mL/min/1. 73 m?? 10/12/2024 12:52 AM [facility] Comment: This patient's estimated GFR [...] AM EST Librado Patel MD CHEMISTRY ORDERABLES [facility] [place] [address] * (ABNORMAL) CBC (with Diff) (10/12/2024 12:04 AM EST) White Blood Cell 9.08 4.00 - 9.50 x10(3)/mc L 10/12/2024 12:27 AM [facility] Red Blood Cell 3.61(L) 4.00 - 5.21 x10(6)/mc L 10/12/2024 12:27 AM [facility] Hemoglobin 10.9(L) 11.7 - 15.5 g/dL 10/12/2024 12:27 AM [facility] Hematocrit 33.7(L) 35.7 - 45.8 % 10/12/2024 12:27 AM [facility] Mean Cell Volume 93.4 82.6 - 94.4 fL 10/12/2024 12:27 AM [facility] Mean Cell Hemoglobin 30.2 27.1 - 32.0 pg 10/12/2024 12:27 AM [facility] Mean Cell Hemoglobin Concentration 32.3 31.7 - 35.0 g/dL 10/12/2024 12:27 AM [facility] Platelet 284 145 - 357 x10(3)/mc L 10/12/2024 12:27 AM [facility] Mean Platelet Volume 10.3 7.6 - 12.9 fL 10/12/2024 12:27 AM [facility] RDW Standard Deviation 49.2(H) 37.0 - 46.0 fL 10/12/2024 12:27 AM [facility] RDW coefficient of variation 14.5(H) 11.5 - 14.1 % 10/12/2024 12:27 AM [facility] NRBC% auto 0.0 % 10/12/2024 12:27 AM [facility] NRBC Absolute <0.01 <0.01 x10(3)/mc L 10/12/2024 12:27 AM [facility] Neutrophil % 66.0 % 10/12/2024 12:27 AM [facility] Neutrophil Absolute (ANC) - Automated 5.99 1.70 - 6.10 x10(3)/mc L 10/12/2024 12:27 AM [facility] Lymph % 20.2 % 10/12/2024 12:27 AM [facility] Lymph Absolute 1.83 0.90 - 3.20 x10(3)/mc L 10/12/2024 12:27 AM [facility] Monocyte % 8.1 % 10/12/2024 12:27 AM [facility] Monocyte Absolute 0.74 0.30 - 0.90 x10(3)/mc L 10/12/2024 12:27 AM [facility] Eos % 4.0 % 10/12/2024 12:27 AM [facility] Eos Absolute 0.36 0.00 - 0.40 x10(3)/mc L 10/12/2024 12:27 AM [facility] Basophil % 0.2 % 10/12/2024 12:27 AM [facility] Baso Absolute <0.04 0.00 - 0.10 x10(3)/mc L 10/12/2024 12:27 AM [facility] Immature Gran % 1.5 % 12:27 AM [facility] Immature Gran Absolute 0.14(H) 0.00 - 0.04 x10(3)/mc L 10/12/2024 12:27 AM [facility] Blood VENOUS BLOOD SPECIMEN / Unknown Venipuncture / Unknown 10/12/2024 12:04 AM EST 10/12/2024 12:23 AM EST Librado Patel MD HEMATOLOGY ORDERABLE S [facility] [place] [address] * POC, GLUCOSE (10/11/2024 8:22 PM EST) Glucometer, POC 154 65 - 199 mg/dL 10/11/2024 8:[address] [facility] Comment:Supplemental ranges: <140 mg/dL before meals <180 mg/dL all other times of the day. Blood CAPILLARY BLOOD / Unknown 10/11/2024 8:22 PM EST 10/11/2024 8:22 PM EST Karli Morales MD POINT OF CARE TEST O RDERABLES Performing Organization Address [facility]/ZIP Co de Phone Number [facility] [place] [address] * COVID-19 PCR (10/11/2024 4:26 PM EST) Pathologist [facility] SARS-CoV-2 RNA (Rapid) Not Detected Not Detected 10/11/2024 7:[address] [facility] Swab SPECIMEN FROM NASOPHARYNGEAL STRUCTURE / Unknown Non Blood Collection / Unknown 10/11/2024 4:26 PM EST 10/11/2024 4:39 PM EST Karli Morales MD MICROBIOLOGY - GENER AL ORDERABLES Performing Organization Address City/[facility]/ZIP Co de Phone Number [facility] [place] [address] * POC, GLUCOSE (10/11/2024 4:01 PM EST) Glucometer, POC 156 65 - 199 mg/dL 10/11/2024 4:[address] [facility] Comment:Supplemental ranges: <140 mg/dL before meals <180 mg/dL all other times of the day. Blood CAPILLARY BLOOD / Unknown 10/11/2024 4:01 PM EST 10/11/2024 4:02 PM EST Karli Morales MD POINT OF CARE TEST O RDERABLES Performing Organization Address [facility] Co de Phone Number [facility] [place] [address] * POC, GLUCOSE (10/11/2024 12:15 PM EST) Glucometer, POC 152 65 - 199 mg/dL 10/11/2024 12:[address] [facility] Comment:Supplemental ranges: <140 mg/dL before meals <180 mg/dL all other times of the day. Blood CAPILLARY BLOOD / Unknown 10/11/2024 12:15 PM EST 10/11/2024 12:16 PM EST Karli Morales MD POINT OF CARE TEST O RDERAASHLIE Performing Organization Address [facility] Co de Phone Number [facility] [place] [address] * POC, GLUCOSE (10/11/2024 7:30 AM EST) Glucometer, POC 126 65 - 199 mg/dL 10/11/2024 7:[address] [facility] Comment:Supplemental ranges: <140 mg/dL before meals <180 mg/dL all other times of the day. Blood CAPILLARY BLOOD / Unknown 10/11/2024 7:30 AM EST 10/11/2024 7:30 AM EST Karli Morales MD POINT OF CARE TEST O ALDO Performing Organization Address [facility] Co de Phone Number [facility] [place] [address] * POC, GLUCOSE (10/11/2024 2:40 AM EST) Glucometer, POC 139 65 - 199 mg/dL 10/11/2024 2:[address] [facility] Comment:Supplemental ranges: <140 mg/dL before meals <180 mg/dL all other times of the day. Blood CAPILLARY BLOOD / Unknown 10/11/2024 2:40 AM EST 10/11/2024 2:41 AM EST Karli Morales MD POINT OF CARE TEST O RDERABLES [facility] [place] [address] * Phosphorus (10/10/2024 11:50 PM EST) Phosphorus 3.0 2.5 - 4.5 mg/dL 10/11/2024 12:[address] [facility] Blood VENOUS BLOOD SPECIMEN / Unknown Venipuncture / Unknown 10/10/2024 11:50 PM EST 10/11/2024 12:07 AM EST Librado Patel MD CHEMISTRY ORDERABLES Performing Organization Address [facility] Co de Phone Number [facility] [place] [address] * Magnesium (10/10/2024 11:50 PM EST) Magnesium 0.73 0.69 - 1.07 mMol/L 10/11/2024 12:[address] [facility] Blood VENOUS BLOOD SPECIMEN / Unknown Venipuncture / Unknown 10/10/2024 11:50 PM EST 10/11/2024 12:07 AM EST Librado Patel MD CHEMISTRY ORDERABLES Performing Organization Address City/[facility]/ZIP Co de Phone Number [facility] [place] [address] * (ABNORMAL) Basic Metabolic Panel (10/10/2024 11:50 PM EST) Glucose 179 65 - 199 mg/dL 10/11/2024 12:[address] [facility] Comment:Glucose Concentratio n >=200 mg/dL plus symptoms is consistent with Diabetes Mellitus. Blood Urea Nitrogen 21(H) 8 - 18 mg/dL 10/11/2024 12:[address] [facility] Creatinine 0.35(L) 0.70 - 1.20 mg/dL 10/11/2024 12:[address] [facility] Sodium 139 135 - 145 mMol/L 10/11/2024 12:44 AM [facility] Potassium 3.8 3.5 - 5.0 mMol/L 10/11/2024 12:44 AM [facility] Chloride 103 98 - 107 mMol/L 10/11/2024 12:44 AM [facility] Carbon Dioxide 27 22 - 31 mMol/L 10/11/2024 12:44 AM [facility] Anion Gap 9 5 - 15 mMol/L 10/11/2024 12:44 AM [facility] Calcium 9.3 8.5 - 10.5 mg/dL 10/11/2024 12:44 AM [facility] Est Glomerular Filtration Rate - Female 109 mL/min/1. 73 m?? 10/11/2024 12:44 AM [facility] Comment: This patient's estimated GFR [...] AM EST Librado Patel MD CHEMISTRY ORDERABLES [facility] [place] [address] * (ABNORMAL) CBC (with Diff) (10/10/2024 11:50 PM EST) White Blood Cell 9.97(H) 4.00 - 9.50 x10(3)/mc L 10/11/2024 12:12 AM [facility] Red Blood Cell 3.59(L) 4.00 - 5.21 x10(6)/mc L 10/11/2024 12:12 AM [facility] Hemoglobin 10.9(L) 11.7 - 15.5 g/dL 10/11/2024 12:12 AM [facility] Hematocrit 33.9(L) 35.7 - 45.8 % 10/11/2024 12:12 AM [facility] Mean Cell Volume 94.4 82.6 - 94.4 fL 10/11/2024 12:12 AM [facility] Mean Cell Hemoglobin 30.4 27.1 - 32.0 pg 10/11/2024 12:12 AM [facility] Mean Cell Hemoglobin Concentration 32.2 31.7 - 35.0 g/dL 10/11/2024 12:12 AM [facility] Platelet 260 145 - 357 x10(3)/mc L 10/11/2024 12:12 AM [facility] Mean Platelet Volume 10.4 7.6 - 12.9 fL 10/11/2024 12:12 AM [facility] RDW Standard Deviation 51.0(H) 37.0 - 46.0 fL 10/11/2024 12:12 AM [facility] RDW coefficient of variation 14.7(H) 11.5 - 14.1 % 10/11/2024 12:12 AM [facility] NRBC% auto 0.0 % 10/11/2024 12:12 AM [facility] NRBC Absolute <0.01 <0.01 x10(3)/mc L 10/11/2024 12:12 AM [facility] Neutrophil % 75.2 % 10/11/2024 12:12 AM [facility] Neutrophil Absolute (ANC) - Automated 7.49(H) 1.70 - 6.10 x10(3)/mc L 10/11/2024 12:12 AM [facility] Lymph % 13.3 % 10/11/2024 12:12 AM [facility] Lymph Absolute 1.33 0.90 - 3.20 x10(3)/mc L 10/11/2024 12:12 AM [facility] Monocyte % 6.9 % 10/11/2024 12:12 AM [facility] Monocyte Absolute 0.69 0.30 - 0.90 x10(3)/mc L 10/11/2024 12:12 AM [facility] Eos % 3.4 % 10/11/2024 12:12 AM [facility] Eos Absolute 0.34 0.00 - 0.40 x10(3)/mc L 10/11/2024 12:12 AM [facility] Basophil % 0.1 % 10/11/2024 12:12 AM [facility] Baso Absolute <0.04 0.00 - 0.10 x10(3)/mc L 10/11/2024 12:12 AM [facility] Immature Gran % 1.1 % 12:12 AM [facility] Immature Gran Absolute 0.11(H) 0.00 - 0.04 x10(3)/mc L 10/11/2024 12:12 AM [facility] Blood VENOUS BLOOD SPECIMEN / Unknown Venipuncture / Unknown 10/10/2024 11:50 PM EST 10/11/2024 12:07 AM EST Librado Patel MD HEMATOLOGY ORDERABLE S [facility] [place] [address] * TSH [place] (10/10/2024 11:50 PM EST) Thyroid Stimulating Hormone 2.14 0.27 - 4.20 mcIU/mL 10/11/2024 12:[address] [facility] Comment: Reference Interval (mcIU/mL): ?? Females: ? First Trimester: 0.23-3.88 ? Second Trimester: 0.22-3.90 ? Third Trimester: 0.44-4.66 Blood VENOUS BLOOD SPECIMEN / Unknown Venipuncture / Unknown 10/10/2024 11:50 PM EST 10/11/2024 12:07 AM EST Karli Morales MD CHEMISTRY ORDERABLES Performing Organization Address [facility] Co de Phone Number [facility] [place] [address] * POC, GLUCOSE (10/10/2024 8:37 PM EST) Glucometer, POC 182 65 - 199 mg/dL 10/10/2024 8:[address] [facility] Comment:Supplemental ranges: <140 mg/dL before meals <180 mg/dL all other times of the day. Blood CAPILLARY BLOOD / Unknown 10/10/2024 8:37 PM EST 10/10/2024 8:37 PM EST Karli Morales MD POINT OF CARE TEST O RDERABLES Performing Organization Address City/[facility]/ZIP Co de Phone Number [facility] [place] [address] * POC, GLUCOSE (10/10/2024 5:30 PM EST) Glucometer, POC 99 65 - 199 mg/dL 10/10/2024 5:[address] [facility] Comment:Supplemental ranges: <140 mg/dL before meals <180 mg/dL all other times of the day. Blood CAPILLARY BLOOD / Unknown 10/10/2024 5:30 PM EST 10/10/2024 5:30 PM EST Karli Morales MD POINT OF CARE TEST O RDERABLES Performing Organization Address [facility] Co de Phone Number [facility] [place] [address] * POC, GLUCOSE (10/10/2024 12:30 PM EST) Glucometer, POC 169 65 - 199 mg/dL 10/10/2024 12:[address] [facility] Comment:Supplemental ranges: <140 mg/dL before meals <180 mg/dL all other times of the day. Blood CAPILLARY BLOOD / Unknown 10/10/2024 12:30 PM EST 10/10/2024 12:31 PM EST Karli Morales MD POINT OF CARE TEST O ASHLEYERAASHLIE Performing Organization Address [facility] Co de Phone Number [facility] [place] [address] * POC, GLUCOSE (10/10/2024 8:12 AM EST) Glucometer, POC 136 65 - 199 mg/dL 10/10/2024 8:[address] [facility] Comment:Supplemental ranges: <140 mg/dL before meals <180 mg/dL all other times of the day. Blood CAPILLARY BLOOD / Unknown 10/10/2024 8:12 AM EST 10/10/2024 8:13 AM EST Karli Morales MD POINT OF CARE TEST O ALDO Performing Organization Address [facility] Co de Phone Number [facility] [place] [address] * POC, GLUCOSE (10/10/2024 3:57 AM EST) Glucometer, POC 126 65 - 199 mg/dL 10/10/2024 3:[address] [facility] Comment:Supplemental ranges: <140 mg/dL before meals <180 mg/dL all other times of the day. Blood CAPILLARY BLOOD / Unknown 10/10/2024 3:57 AM EST 10/10/2024 3:57 AM EST Karli Morales MD POINT OF CARE TEST O RDERABLES [facility] [place] [address] * Phosphorus (10/10/2024 12:44 AM EST) Phosphorus 3.1 2.5 - 4.5 mg/dL 10/10/2024 1:[address] [facility] Blood VENOUS BLOOD SPECIMEN / Unknown Venipuncture / Unknown 10/10/2024 12:44 AM EST 10/10/2024 12:53 AM EST Librado Patel MD CHEMISTRY ORDERABLES Performing Organization Address City/[facility] Co de Phone Number [facility] [place] [address] * Magnesium (10/10/2024 12:44 AM EST) Magnesium 0.78 0.69 - 1.07 mMol/L 10/10/2024 1:[address] [facility] Blood VENOUS BLOOD SPECIMEN / Unknown Venipuncture / Unknown 10/10/2024 12:44 AM EST 10/10/2024 12:53 AM EST Librado Patel MD CHEMISTRY ORDERABLES Performing Organization Address City/[facility]/ZIP Co de Phone Number [facility] [place] [address] * (ABNORMAL) Basic Metabolic Panel (10/10/2024 12:44 AM EST) Glucose 195 65 - 199 mg/dL 10/10/2024 1:[address] [facility] Comment:Glucose Concentratio n >=200 mg/dL plus symptoms is consistent with Diabetes Mellitus. Blood Urea Nitrogen 22(H) 8 - 18 mg/dL 10/10/2024 1:[address] [facility] Creatinine 0.34(L) 0.70 - 1.20 mg/dL 10/10/2024 1:[address] [facility] Sodium 138 135 - 145 mMol/L 10/10/2024 1:21 AM [facility] Potassium 4.2 3.5 - 5.0 mMol/L 10/10/2024 1:21 AM [facility] Chloride 101 98 - 107 mMol/L 10/10/2024 1:21 AM [facility] Carbon Dioxide 26 22 - 31 mMol/L 10/10/2024 1:21 AM [facility] Anion Gap 11 5 - 15 mMol/L 10/10/2024 1:21 AM [facility] Calcium 9.2 8.5 - 10.5 mg/dL 10/10/2024 1:21 AM [facility] Est Glomerular Filtration Rate - Female 110 mL/min/1. 73 m?? 10/10/2024 1:21 AM [facility] Comment: This patient's estimated GFR [...] AM EST Librado Patel MD CHEMISTRY ORDERABLES [facility] [place] [address] * (ABNORMAL) CBC (with Diff) (10/10/2024 12:44 AM EST) Pathologist [facility] White Blood Cell 10.15(H) 4.00 - 9.50 x10(3)/mc L 10/10/2024 12:57 AM [facility] Red Blood Cell 3.71(L) 4.00 - 5.21 x10(6)/mc L 10/10/2024 12:57 AM [facility] Hemoglobin 11.3(L) 11.7 - 15.5 g/dL 10/10/2024 12:57 AM [facility] Hematocrit 34.7(L) 35.7 - 45.8 % 10/10/2024 12:57 AM [facility] Mean Cell Volume 93.5 82.6 - 94.4 fL 10/10/2024 12:57 AM [facility] Mean Cell Hemoglobin 30.5 27.1 - 32.0 pg 10/10/2024 12:57 AM [facility] Mean Cell Hemoglobin Concentration 32.6 31.7 - 35.0 g/dL 10/10/2024 12:57 AM [facility] Platelet 230 145 - 357 x10(3)/mc L 10/10/2024 12:57 AM [facility] Mean Platelet Volume 10.3 7.6 - 12.9 fL 10/10/2024 12:57 AM [facility] RDW Standard Deviation 50.0(H) 37.0 - 46.0 fL 10/10/2024 12:57 AM [facility] RDW coefficient of variation 14.7(H) 11.5 - 14.1 % 10/10/2024 12:57 AM [facility] NRBC% auto 0.0 % 10/10/2024 12:57 AM [facility] NRBC Absolute <0.01 <0.01 x10(3)/mc L 10/10/2024 12:57 AM [facility] Neutrophil % 71.5 % 10/10/2024 12:57 AM [facility] Neutrophil Absolute (ANC) - Automated 7.26(H) 1.70 - 6.10 x10(3)/mc L 10/10/2024 12:57 AM [facility] Lymph % 16.9 % 10/10/2024 12:57 AM [facility] Lymph Absolute 1.72 0.90 - 3.20 x10(3)/mc L 10/10/2024 12:57 AM [facility] Monocyte % 7.6 % 10/10/2024 12:57 AM [facility] Monocyte Absolute 0.77 0.30 - 0.90 x10(3)/mc L 10/10/2024 12:57 AM [facility] Eos % 3.0 % 10/10/2024 12:57 AM [facility] Eos Absolute 0.30 0.00 - 0.40 x10(3)/mc L 10/10/2024 12:57 AM [facility] Basophil % 0.3 % 10/10/2024 12:57 AM [facility] Baso Absolute <0.04 0.00 - 0.10 x10(3)/mc L 10/10/2024 12:57 AM [facility] Immature Gran % 0.7 % 12:57 AM [facility] Immature Gran Absolute 0.07(H) 0.00 - 0.04 x10(3)/mc L 10/10/2024 12:57 AM [facility] Blood VENOUS BLOOD SPECIMEN / Unknown Venipuncture / Unknown 10/10/2024 12:44 AM EST 10/10/2024 12:52 AM EST Librado Patel MD HEMATOLOGY ORDERABLE S [facility] [place] [address] * POC, GLUCOSE (10/09/2024 8:07 PM EST) [facility] Signature Glucometer, POC 159 65 - 199 mg/dL 10/09/2024 8:[address] [facility] Comment:Supplemental ranges: <140 mg/dL before meals <180 mg/dL all other times of the day. Blood CAPILLARY BLOOD / Unknown 10/09/2024 8:07 PM EST 10/09/2024 8:08 PM EST Karli Morales MD POINT OF CARE TEST O ALDO Performing Organization Address City/[facility] Co de Phone Number [facility] [place] [address] * POC, GLUCOSE (10/09/2024 4:39 PM EST) Glucometer, POC 153 65 - 199 mg/dL 10/09/2024 4:[address] [facility] Comment:Supplemental ranges: <140 mg/dL before meals <180 mg/dL all other times of the day. Blood CAPILLARY BLOOD / Unknown 10/09/2024 4:39 PM EST 10/09/2024 4:39 PM EST Karli Morales MD POINT OF CARE TEST O ADLO Performing Organization Address [facility] Co de Phone Number [facility] [place] [address] * POC, GLUCOSE (10/09/2024 11:37 AM EST) Glucometer, POC 162 65 - 199 mg/dL 10/09/2024 11:[address] [facility] Comment:Supplemental ranges: <140 mg/dL before meals <180 mg/dL all other times of the day. Blood CAPILLARY BLOOD / Unknown 10/09/2024 11:37 AM EST 10/09/2024 11:37 AM EST Karli Morales MD POINT OF CARE TEST O ALDO Performing Organization Address City/[facility] Co de Phone Number [facility] [place] [address] * (ABNORMAL) Urine culture (10/09/2024 10:43 AM EST) Urine Culture Greater than 50,000 cfu/mL Escherichia coli(A) VITEK 2 METHOD 10/12/2024 8:32 AM [facility] Urine Culture Greater than 50,000 cfu/mL Raoultella ornithinolytica (A) VITEK 2 METHOD 10/12/2024 8:32 AM [facility] Urine URINE SPECIMEN OBTAINED VIA [...] Morales MD MICROBIOLOGY - GENER AL ORDERABLES [facility] [place] [address] * (ABNORMAL) Urinalysis Microscopic with Reflex to Culture (10/09/2024 10:43 AM EST) Bacteria, Urine Many(A) None /HPF 11:01 AM [facility] RBC, Urine 2 0 - 4 /HPF 10/09/2024 11:01 AM [facility] WBC, Urine >=100(H) 0 - 5 /HPF 10/09/2024 11:01 AM [facility] Squamous Epithelial Cells, Urine 0 0 - 5 /HPF 10/09/2024 11:01 AM [facility] Hyaline Casts, Urine 1 0 - 2 /LPF 10/09/2024 11:01 AM [facility] CULTURE ADDED? Yes 10/09/2024 11:01 AM [facility] Urine URINE SPECIMEN OBTAINED VIA STRAIGHT CATHETER / Unknown Non Blood Collection / Unknown 10/09/2024 10:43 AM EST 10/09/2024 10:49 AM EST Karli Morales MD URINE ORDERABLES [facility] [place] [address] * (ABNORMAL) Urinalysis with reflex Culture (10/09/2024 10:43 AM EST) Glucose, Urine Dipstick Negative Negative 10/09/2024 11:01 AM [facility] Protein, Urine Dipstick Trace(A) Negative 10/09/2024 11:01 AM [facility] Bilirubin, Urine Dipstick Negative Negative 10/09/2024 11:01 AM [facility] Comment:Clinical correlation required for positive Urine Bilirubin results as false positive may occur with some drugs and drug related products. If a false positive is suspected a serum total bilirubin should be considered if clinically indicated. Urobilinogen, Urine Dipstick Normal Normal, 0.2 mg/dL, 1.0 mg/dL 10/09/2024 11:01 AM [facility] pH, Urine (dipstick) 7.5 5.0 - 8.0 10/09/2024 11:01 AM [facility] Blood, Urine Dipstick Trace(A) Negative 10/09/2024 11:01 AM [facility] Ketone, Urine Dipstick Negative Negative 10/09/2024 11:01 AM [facility] Nitrite, Urine Dipstick Positive(A) Negative 10/09/2024 11:01 AM [facility] Leukocytes, Urine Dipstick Large(A) Negative 10/09/2024 11:01 AM [facility] Specific [place] Urine Automated 1.017 1.005 - 1.030 10/09/2024 11:01 AM [facility] Appearance, Urine Dipstick Turbid(A) Clear 10/09/2024 11:01 AM [facility] Color, Urine Dipstick Yellow Yellow, Dark Yellow 10/09/2024 11:01 AM [facility] CULTURE ADDED? Yes 10/09/2024 11:[address] [facility] Urine URINE SPECIMEN OBTAINED VIA STRAIGHT CATHETER / Unknown Non Blood Collection / Unknown 10/09/2024 10:43 AM EST 10/09/2024 10:49 AM EST Karli Morales MD URINE ORDERABLES [facility] [place] [address] * POC, GLUCOSE (10/09/2024 7:44 AM EST) Glucometer, POC 147 65 - 199 mg/dL 10/09/2024 7:[address] [facility] Comment:Supplemental ranges: <140 mg/dL before meals <180 mg/dL all other times of the day. Blood CAPILLARY BLOOD / Unknown 10/09/2024 7:44 AM EST 10/09/2024 7:44 AM EST Karli Morales MD POINT OF CARE TEST O RDERABLES Performing Organization Address City/[facility]/ZIP Co de Phone Number [facility] [place] [address] * POC, GLUCOSE (10/09/2024 1:06 AM EST) Glucometer, POC 149 65 - 199 mg/dL 10/09/2024 1:[address] [facility] Comment:Supplemental ranges: <140 mg/dL before meals <180 mg/dL all other times of the day. Blood CAPILLARY BLOOD / Unknown 10/09/2024 1:06 AM EST 10/09/2024 1:08 AM EST Karli Morales MD POINT OF CARE TEST O RDERABLES [facility] [place] [address] * Phosphorus (10/09/2024 12:59 AM EST) Phosphorus 3.5 2.5 - 4.5 mg/dL 10/09/2024 1:[address] [facility] Blood VENOUS BLOOD SPECIMEN / Unknown Venipuncture / Unknown 10/09/2024 12:59 AM EST 10/09/2024 1:16 AM EST Librado Patel MD CHEMISTRY ORDERABLES Performing Organization Address City/[facility]/ZIP Co de Phone Number [facility] [place] [address] * Magnesium (10/09/2024 12:59 AM EST) Magnesium 0.81 0.69 - 1.07 mMol/L 10/09/2024 1:46 AM [facility] Blood VENOUS BLOOD SPECIMEN / Unknown Venipuncture / Unknown 10/09/2024 12:59 AM EST 10/09/2024 1:16 AM EST Librado Patel MD CHEMISTRY ORDERABLES Performing Organization Address City/[facility]/ZIP Co de Phone Number [facility] [place] [place] [address] * (ABNORMAL) Basic Metabolic Panel (10/09/2024 12:59 AM EST) Pathologist [facility] Glucose 159 65 - 199 mg/dL 10/09/2024 1:46 AM [facility] Comment:Glucose Concentratio n >=200 mg/dL plus symptoms is consistent with Diabetes Mellitus. Blood Urea Nitrogen 25(H) 8 - 18 mg/dL 10/09/2024 1:46 AM [facility] Creatinine 0.36(L) 0.70 - 1.20 mg/dL 10/09/2024 1:46 AM [facility] Sodium 140 135 - 145 mMol/L 10/09/2024 1:46 AM [facility] Potassium 4.2 3.5 - 5.0 mMol/L 10/09/2024 1:46 AM [facility] Chloride 102 98 - 107 mMol/L 10/09/2024 1:[address] [facility] Carbon Dioxide 28 22 - 31 mMol/L 10/09/2024 1:46 AM [facility] Anion Gap 10 5 - 15 mMol/L 10/09/2024 1:46 AM [facility] Calcium 9.5 8.5 - 10.5 mg/dL 10/09/2024 1:46 AM [facility] Est Glomerular Filtration Rate - Female 108 mL/min/1. 73 m?? 10/09/2024 1:[address] [facility] Comment: This patient's estimated GFR [...] AM EST Librado Patel MD CHEMISTRY ORDERABLES [facility] [place] [address] * (ABNORMAL) CBC (with Diff) (10/09/2024 12:59 AM EST) White Blood Cell 12.45(H) 4.00 - 9.50 x10(3)/mc L 10/09/2024 1:[address] [facility] Red Blood Cell 3.42(L) 4.00 - 5.21 x10(6)/mc L 10/09/2024 1:27 AM [facility] Hemoglobin 10.4(L) 11.7 - 15.5 g/dL 10/09/2024 1:27 AM [facility] Hematocrit 32.1(L) 35.7 - 45.8 % 10/09/2024 1:27 AM [facility] Mean Cell Volume 93.9 82.6 - 94.4 fL 10/09/2024 1:27 AM [facility] Mean Cell Hemoglobin 30.4 27.1 - 32.0 pg 10/09/2024 1:27 AM [facility] Mean Cell Hemoglobin Concentration 32.4 31.7 - 35.0 g/dL 10/09/2024 1:27 AM [facility] Platelet 207 145 - 357 x10(3)/mc L 10/09/2024 1:27 AM [facility] Mean Platelet Volume 10.4 7.6 - 12.9 fL 10/09/2024 1:27 AM [facility] RDW Standard Deviation 49.9(H) 37.0 - 46.0 fL 10/09/2024 1:27 AM [facility] RDW coefficient of variation 14.6(H) 11.5 - 14.1 % 10/09/2024 1:27 AM [facility] NRBC% auto 0.0 % 10/09/2024 1:27 AM [facility] NRBC Absolute <0.01 <0.01 x10(3)/mc L 10/09/2024 1:27 AM [facility] Neutrophil % 80.1 % 10/09/2024 1:27 AM [facility] Neutrophil Absolute (ANC) - Automated 9.95(H) 1.70 - 6.10 x10(3)/mc L 10/09/2024 1:27 AM [facility] Lymph % 10.9 % 10/09/2024 1:27 AM [facility] Lymph Absolute 1.36 0.90 - 3.20 x10(3)/mc L 10/09/2024 1:27 AM [facility] Monocyte % 6.4 % 10/09/2024 1:[address] [facility] Monocyte Absolute 0.80 0.30 - 0.90 x10(3)/mc L 10/09/2024 1:27 AM [facility] Eos % 1.8 % 10/09/2024 1:27 AM [facility] Eos Absolute 0.23 0.00 - 0.40 x10(3)/mc L 10/09/2024 1:[address] [facility] Basophil % 0.2 % 10/09/2024 1:27 AM [facility] Baso Absolute <0.04 0.00 - 0.10 x10(3)/mc L 10/09/2024 1:27 AM [facility] Immature Gran % 0.6 % 1:27 AM [facility] Immature Gran Absolute 0.08(H) 0.00 - 0.04 x10(3)/mc L 10/09/2024 1:27 AM [facility] Blood VENOUS BLOOD SPECIMEN / Unknown Venipuncture / Unknown 10/09/2024 12:59 AM EST 10/09/2024 1:16 AM EST Librado Patel MD HEMATOLOGY ORDERABLE S [facility] [place] [address] * POC, GLUCOSE (10/08/2024 8:35 PM EST) [facility] Signature Glucometer, POC 175 65 - 199 mg/dL 10/08/2024 8:[address] [facility] Comment:Supplemental ranges: <140 mg/dL before meals <180 mg/dL all other times of the day. Blood CAPILLARY BLOOD / Unknown 10/08/2024 8:35 PM EST 10/08/2024 8:36 PM EST Karli Morales MD POINT OF CARE TEST O RDERABLES Performing Organization Address [facility] de Phone Number [facility] [place] [place] [address] * POC, GLUCOSE (10/08/2024 4:41 PM EST) Glucometer, POC 177 65 - 199 mg/dL 10/08/2024 4:[address] [facility] Comment:Supplemental ranges: <140 mg/dL before meals <180 mg/dL all other times of the day. Blood CAPILLARY BLOOD / Unknown 10/08/2024 4:41 PM EST 10/08/2024 4:42 PM EST Karli Morales MD POINT OF CARE TEST O RDERABLES Performing Organization Address [facility] de Phone Number [facility] [place] [place] [address] * XR Fluoro Esophagram (Modified/Video Swallow Pharynx) (10/08/2024 4:10 PM EST) WORKSTATION ID [id number] DH RAD Anatomical Region Laterality Modality N/A Radio [...] who have questions please contact the health customer care agent that requested your imaging first. ? Electronically signed by: Victor Manuel Smith MD, [facility] ([phone]), at 10/08/2024 4:49 PM Narrative 10/08/2024 4:49 [...] patients who have questions please contactthe health customer care agent that requested your imaging first. Electronically signed by: Victor Manuel Smith MD, [facility]([phone]), at 10/08/2024 4:49 PM Karli Morales MD IMG FLUORO ORDERABLE S * POC, GLUCOSE (10/08/2024 12:49 PM EST) Glucometer, POC 176 65 - 199 mg/dL 10/08/2024 12:[address] [facility] Comment:Supplemental ranges: <140 mg/dL before meals <180 mg/dL all other times of the day. Blood CAPILLARY BLOOD / Unknown 10/08/2024 12:49 PM EST 10/08/2024 12:50 PM EST Karli Morales MD POINT OF CARE TEST O ALDO Performing Organization Address City/[facility]/ZIP Co de Phone Number [facility] [place] [place] [address] * POC, GLUCOSE (10/08/2024 8:26 AM EST) Glucometer, POC 123 65 - 199 mg/dL 10/08/2024 8:[address] [facility] Comment:Supplemental ranges: <140 mg/dL before meals <180 mg/dL all other times of the day. Blood CAPILLARY BLOOD / Unknown 10/08/2024 8:26 AM EST 10/08/2024 8:26 AM EST Karli Morales MD POINT OF CARE TEST O ALDO [facility] [place] [address] * POC, GLUCOSE (10/08/2024 4:15 AM EST) Glucometer, POC 135 65 - 199 mg/dL 10/08/2024 4:[address] [facility] Comment:Supplemental ranges: <140 mg/dL before meals <180 mg/dL all other times of the day. Blood CAPILLARY BLOOD / Unknown 10/08/2024 4:15 AM EST 10/08/2024 4:15 AM EST Karli Morales MD POINT OF CARE TEST O RDERABLES [facility] [place] [address] * Phosphorus (10/08/2024 1:13 AM EST) Phosphorus 3.3 2.5 - 4.5 mg/dL 10/08/2024 2:[address] [facility] Blood VENOUS BLOOD SPECIMEN / Unknown Venipuncture / Unknown 10/08/2024 1:13 AM EST 10/08/2024 1:34 AM EST Librado Patel MD CHEMISTRY ORDERABLES Performing Organization Address City/[facility]/ZIP Co de Phone Number [facility] [place] [address] * Magnesium (10/08/2024 1:13 AM EST) Magnesium 0.79 0.69 - 1.07 mMol/L 10/08/2024 2:[address] [facility] Blood VENOUS BLOOD SPECIMEN / Unknown Venipuncture / Unknown 10/08/2024 1:13 AM EST 10/08/2024 1:34 AM EST Librado Patel MD CHEMISTRY ORDERABLES Performing Organization Address City/[facility]/ZIP Co de Phone Number [facility] [place] [place] [address] * (ABNORMAL) Basic Metabolic Panel (10/08/2024 1:13 AM EST) Glucose 186 65 - 199 mg/dL 10/08/2024 2:[address] [facility] Comment:Glucose Concentratio n >=200 mg/dL plus symptoms is consistent with Diabetes Mellitus. Blood Urea Nitrogen 26(H) 8 - 18 mg/dL 10/08/2024 2:[address] [facility] Creatinine 0.39(L) 0.70 - 1.20 mg/dL 10/08/2024 2:[address] [facility] Sodium 138 135 - 145 mMol/L 10/08/2024 2:06 AM [facility] Potassium 4.4 3.5 - 5.0 mMol/L 10/08/2024 2:06 AM [facility] Chloride 104 98 - 107 mMol/L 10/08/2024 2:06 AM [facility] Carbon Dioxide 27 22 - 31 mMol/L 10/08/2024 2:06 AM [facility] Anion Gap 7 5 - 15 mMol/L 10/08/2024 2:06 AM [facility] Calcium 8.9 8.5 - 10.5 mg/dL 10/08/2024 2:06 AM [facility] Est Glomerular Filtration Rate - Female 106 mL/min/1. 73 m?? 10/08/2024 2:06 AM [facility] Comment: This patient's estimated GFR [...] AM EST Librado Patel MD CHEMISTRY ORDERABLES [facility] [place] [address] * (ABNORMAL) CBC (with Diff) (10/08/2024 1:13 AM EST) White Blood Cell 11.43(H) 4.00 - 9.50 x10(3)/mc L 10/08/2024 1:39 AM [facility] Red Blood Cell 3.30(L) 4.00 - 5.21 x10(6)/mc L 10/08/2024 1:39 AM [facility] Hemoglobin 10.0(L) 11.7 - 15.5 g/dL 10/08/2024 1:39 AM [facility] Hematocrit 31.2(L) 35.7 - 45.8 % 10/08/2024 1:39 AM [facility] Mean Cell Volume 94.5(H) 82.6 - 94.4 fL 10/08/2024 1:39 AM [facility] Mean Cell Hemoglobin 30.3 27.1 - 32.0 pg 10/08/2024 1:39 AM [facility] Mean Cell Hemoglobin Concentration 32.1 31.7 - 35.0 g/dL 10/08/2024 1:39 AM [facility] Platelet 190 145 - 357 x10(3)/mc L 10/08/2024 1:39 AM [facility] Mean Platelet Volume 9.9 7.6 - 12.9 fL 10/08/2024 1:39 AM [facility] RDW Standard Deviation 52.3(H) 37.0 - 46.0 fL 10/08/2024 1:39 AM [facility] RDW coefficient of variation 15.2(H) 11.5 - 14.1 % 10/08/2024 1:39 AM [facility] NRBC% auto 0.0 % 10/08/2024 1:39 AM [facility] NRBC Absolute <0.01 <0.01 x10(3)/mc L 10/08/2024 1:39 AM [facility] Neutrophil % 78.8 % 10/08/2024 1:39 AM [facility] Neutrophil Absolute (ANC) - Automated 9.01(H) 1.70 - 6.10 x10(3)/mc L 10/08/2024 1:39 AM [facility] Lymph % 11.9 % 10/08/2024 1:39 AM [facility] Lymph Absolute 1.36 0.90 - 3.20 x10(3)/mc L 10/08/2024 1:39 AM [facility] Monocyte % 5.9 % 10/08/2024 1:39 AM [facility] Monocyte Absolute 0.67 0.30 - 0.90 x10(3)/mc L 10/08/2024 1:39 AM [facility] Eos % 2.7 % 10/08/2024 1:39 AM [facility] Eos Absolute 0.31 0.00 - 0.40 x10(3)/mc L 10/08/2024 1:39 AM [facility] Basophil % 0.1 % 10/08/2024 1:39 AM [facility] Baso Absolute <0.04 0.00 - 0.10 x10(3)/mc L 10/08/2024 1:39 AM [facility] Immature Gran % 0.6 % 1:39 AM [facility] Immature Gran Absolute 0.07(H) 0.00 - 0.04 x10(3)/mc L 10/08/2024 1:39 AM [facility] Blood VENOUS BLOOD SPECIMEN / Unknown Venipuncture / Unknown 10/08/2024 1:13 AM EST 10/08/2024 1:34 AM EST Librado Patel MD HEMATOLOGY ORDERABLE S [facility] [place] [address] * POC, GLUCOSE (10/08/2024 1:07 AM EST) [facility] Signature Glucometer, POC 171 65 - 199 mg/dL 10/08/2024 1:07 AM [facility] Comment:Supplemental ranges: <140 mg/dL before meals <180 mg/dL all other times of the day. Blood CAPILLARY BLOOD / Unknown 10/08/2024 1:07 AM EST 10/08/2024 1:07 AM EST Karli Morales MD POINT OF CARE TEST O RDERAASHLIE Performing Organization Address City/[facility]/ZIP Co de Phone Number [facility] [place] [address] * POC, GLUCOSE (10/07/2024 8:55 PM EST) Glucometer, POC 114 65 - 199 mg/dL 10/07/2024 8:[address] [facility] Comment:Supplemental ranges: <140 mg/dL before meals <180 mg/dL all other times of the day. Blood CAPILLARY BLOOD / Unknown 10/07/2024 8:55 PM EST 10/07/2024 8:56 PM EST Karli Morales MD POINT OF CARE TEST O RDERAASHLIE Performing Organization Address [facility]/ZIP Co de Phone Number [facility] [place] [address] * POC, GLUCOSE (10/07/2024 4:29 PM EST) Glucometer, POC 178 65 - 199 mg/dL 10/07/2024 4:[address] [facility] Comment:Supplemental ranges: <140 mg/dL before meals <180 mg/dL all other times of the day. Blood CAPILLARY BLOOD / Unknown 10/07/2024 4:29 PM EST 10/07/2024 4:29 PM EST Karli Morales MD POINT OF CARE TEST O RDERAASHLIE Performing Organization Address City/[facility]/ZIP Co de Phone Number [facility] [place] [address] * CT Head wo Contrast (Generic) (10/07/2024 3:25 PM EST) WORKSTATION ID [id number] RAD Anatomical Region Laterality Modality Head Computed Tomogra phy Impressions 10/07/2024 4:11 PM EST 1. ??Interval decreased prominence of RIGHT parenchymal hemorrhage with unchanged RIGHT holohemispheric mass effect and RIGHT to LEFT midline shift. 2. ??No new hemorrhages. I have personally reviewed the image(s) and the resident's interpretation and agree with the findings, Domingo Puenets at 10/07/2024 4:11 PM Thank you for letting us participate in the care of this patient. ??If you are a health care provider and have any questions regarding this report, please contact the number below. ??For patients who have questions please contact the health customer care agent that requested your imaging first. ? Electronically signed by: TONO Caldwell [facility] ([phone]), at 10/07/2024 4:11 PM Narrative 10/07/2024 4:11 [...] patients who have questions please contactthe health customer care agent that requested your imaging first. Electronically signed by: Domingo Puentes [facility]([phone]), at 10/07/2024 4:11 PM Karli Morales MD IMG CT ORDERABLES * POC, GLUCOSE (10/07/2024 11:30 AM EST) Glucometer, POC 169 65 - 199 mg/dL 10/07/2024 11:[address] [facility] Comment:Supplemental ranges: <140 mg/dL before meals <180 mg/dL all other times of the day. Blood CAPILLARY BLOOD / Unknown 10/07/2024 11:30 AM EST 10/07/2024 11:30 AM EST Karli Morales MD POINT OF CARE TEST O ALDO [facility] [place] [address] * POC, GLUCOSE (10/07/2024 8:42 AM EST) Glucometer, POC 166 65 - 199 mg/dL 10/07/2024 8:[address] [facility] Comment:Supplemental ranges: <140 mg/dL before meals <180 mg/dL all other times of the day. Blood CAPILLARY BLOOD / Unknown 10/07/2024 8:42 AM EST 10/07/2024 8:42 AM EST Karli Morales MD POINT OF CARE TEST O ALDO Performing Organization Address [facility] Co de Phone Number [facility] [place] [address] * POC, GLUCOSE (10/07/2024 4:17 AM EST) Glucometer, POC 175 65 - 199 mg/dL 10/07/2024 4:[address] [facility] Comment:Supplemental ranges: <140 mg/dL before meals <180 mg/dL all other times of the day. Blood CAPILLARY BLOOD / Unknown 10/07/2024 4:17 AM EST 10/07/2024 4:17 AM EST Karli Morales MD POINT OF CARE TEST Yi CARLSON [facility] [place] [address] * Phosphorus (10/07/2024 1:12 AM EST) [facility] Phosphorus 2.6 2.5 - 4.5 mg/dL 10/07/2024 1:58 AM [facility] Blood VENOUS BLOOD SPECIMEN / Unknown Venipuncture / Unknown 10/07/2024 1:12 AM EST 10/07/2024 1:32 AM EST Librado Patel MD CHEMISTRY ORDERABLES [facility] [place] [address] * Magnesium (10/07/2024 1:12 AM EST) [facility] Magnesium 0.72 0.69 - 1.07 mMol/L 10/07/2024 1:58 AM [facility] Blood VENOUS BLOOD SPECIMEN / Unknown Venipuncture / Unknown 10/07/2024 1:12 AM EST 10/07/2024 1:32 AM EST Librado Patel MD CHEMISTRY ORDERABLES [facility] [place] [address] * (ABNORMAL) Basic Metabolic Panel (10/07/2024 1:12 AM EST) [facility] Glucose 190 65 - 199 mg/dL 10/07/2024 1:58 AM [facility] Comment:Glucose Concentratio n >=200 mg/dL plus symptoms is consistent with Diabetes Mellitus. Blood Urea Nitrogen 17 8 - 18 mg/dL 10/07/2024 1:58 AM [facility] Creatinine 0.36(L) 0.70 - 1.20 mg/dL 10/07/2024 1:58 AM [facility] Sodium 138 135 - 145 mMol/L 10/07/2024 1:58 AM [facility] Potassium 4.0 3.5 - 5.0 mMol/L 10/07/2024 1:[address] [facility] Chloride 102 98 - 107 mMol/L 10/07/2024 1:58 AM [facility] Carbon Dioxide 27 22 - 31 mMol/L 10/07/2024 1:58 AM [facility] Anion Gap 9 5 - 15 mMol/L 10/07/2024 1:58 AM [facility] Calcium 9.0 8.5 - 10.5 mg/dL 10/07/2024 1:[address] [facility] Est Glomerular Filtration Rate - Female 108 mL/min/1. 73 m?? 10/07/2024 1:58 AM [facility] Comment: This patient's estimated GFR [...] AM EST Librado Patel MD CHEMISTRY ORDERABLES [facility] [place] [address] * (ABNORMAL) CBC (with Diff) (10/07/2024 1:12 AM EST) White Blood Cell 15.48(H) 4.00 - 9.50 x10(3)/mc L 10/07/2024 1:[address] [facility] Red Blood Cell 3.49(L) 4.00 - 5.21 x10(6)/mc L 10/07/2024 1:36 AM [facility] Hemoglobin 10.7(L) 11.7 - 15.5 g/dL 10/07/2024 1:36 AM [facility] Hematocrit 32.4(L) 35.7 - 45.8 % 10/07/2024 1:36 AM [facility] Mean Cell Volume 92.8 82.6 - 94.4 fL 10/07/2024 1:36 AM [facility] Mean Cell Hemoglobin 30.7 27.1 - 32.0 pg 10/07/2024 1:36 AM [facility] Mean Cell Hemoglobin Concentration 33.0 31.7 - 35.0 g/dL 10/07/2024 1:36 AM [facility] Platelet 211 145 - 357 x10(3)/mc L 10/07/2024 1:36 AM [facility] Mean Platelet Volume 10.0 7.6 - 12.9 fL 10/07/2024 1:36 AM [facility] RDW Standard Deviation 50.0(H) 37.0 - 46.0 fL 10/07/2024 1:36 AM [facility] RDW coefficient of variation 15.0(H) 11.5 - 14.1 % 10/07/2024 1:36 AM [facility] NRBC% auto 0.0 % 10/07/2024 1:36 AM [facility] NRBC Absolute <0.01 <0.01 x10(3)/mc L 10/07/2024 1:36 AM [facility] Neutrophil % 85.0 % 10/07/2024 1:36 AM [facility] Neutrophil Absolute (ANC) - Automated 13.16(H) 1.70 - 6.10 x10(3)/mc L 10/07/2024 1:36 AM [facility] Lymph % 8.3 % 10/07/2024 1:36 AM [facility] Lymph Absolute 1.29 0.90 - 3.20 x10(3)/mc L 10/07/2024 1:36 AM [facility] Monocyte % 5.0 % 10/07/2024 1:36 AM [facility] Monocyte Absolute 0.78 0.30 - 0.90 x10(3)/mc L 10/07/2024 1:36 AM [facility] Eos % 1.1 % 10/07/2024 1:36 AM [facility] Eos Absolute 0.17 0.00 - 0.40 x10(3)/mc L 10/07/2024 1:36 AM [facility] Basophil % 0.1 % 10/07/2024 1:36 AM [facility] Baso Absolute <0.04 0.00 - 0.10 x10(3)/mc L 10/07/2024 1:36 AM [facility] Immature Gran % 0.5 % 1:36 AM [facility] Immature Gran Absolute 0.07(H) 0.00 - 0.04 x10(3)/mc L 10/07/2024 1:36 AM [facility] Blood VENOUS BLOOD SPECIMEN / Unknown Venipuncture / Unknown 10/07/2024 1:12 AM EST 10/07/2024 1:32 AM EST Librado Patel MD HEMATOLOGY ORDERABLE S [facility] [place] [address] * POC, GLUCOSE (10/07/2024 1:00 AM EST) [facility] Signature Glucometer, POC 177 65 - 199 mg/dL 10/07/2024 1:00 AM [facility] Comment:Supplemental ranges: <140 mg/dL before meals <180 mg/dL all other times of the day. Blood CAPILLARY BLOOD / Unknown 10/07/2024 1:00 AM EST 10/07/2024 1:00 AM EST Karli Morales MD POINT OF CARE TEST O ALDO Performing Organization Address City/[facility]/ZIP Co de Phone Number [facility] [place] [address] * POC, GLUCOSE (10/06/2024 8:40 PM EST) Glucometer, POC 163 65 - 199 mg/dL 10/06/2024 8:[address] [facility] Comment:Supplemental ranges: <140 mg/dL before meals <180 mg/dL all other times of the day. Blood CAPILLARY BLOOD / Unknown 10/06/2024 8:40 PM EST 10/06/2024 8:40 PM EST Karli Morales MD POINT OF CARE TEST O ALDO Performing Organization Address [facility] Co de Phone Number [facility] [place] [address] * POC, GLUCOSE (10/06/2024 4:20 PM EST) Glucometer, POC 175 65 - 199 mg/dL 10/06/2024 4:[address] [facility] Comment:Supplemental ranges: <140 mg/dL before meals <180 mg/dL all other times of the day. Blood CAPILLARY BLOOD / Unknown 10/06/2024 4:20 PM EST 10/06/2024 4:21 PM EST Karli Morales MD POINT OF CARE TEST O ALDO Performing Organization Address City/[facility]/ZIP Co de Phone Number [facility] [place] [address] * (ABNORMAL) Troponin-T, High Sensitivity 1 Hour (10/06/2024 12:41 PM EST) Troponin-T, High Sensitivity 18(H) <=14 ng/L 10/06/2024 1:[address] [facility] Comment: This patient's troponin T [...] troponin value can be found in the [facility] Test Catalog Troponin - https://[facility] hospitalHashable.testcatalog.org/catalogs/565/files/49584 Reference: [place] Definition of Myocardial Infarction. Journal of the [place] [employer] 2018;72:5233-5212 Troponin-T, HS 1 hr delta 3 ng/L 10/06/2024 1:[address] [facility] Comment:The 1 hour Troponin T delta value is the absolute difference between the Troponin T concentrations of the initial and subsequent sample collected between 45 - 120 minutes following the initial collection. Blood VENOUS BLOOD SPECIMEN / Unknown Venipuncture / Unknown 10/06/2024 12:41 PM EST 10/06/2024 12:55 PM EST Karli Morales MD CHEMISTRY ORDERABLES [facility] [place] [address] * POC, GLUCOSE (10/06/2024 12:24 PM EST) [facility] Signature Glucometer, POC 155 65 - 199 mg/dL 10/06/2024 12:[address] [facility] Comment:Supplemental ranges: <140 mg/dL before meals <180 mg/dL all other times of the day. Blood CAPILLARY BLOOD / Unknown 10/06/2024 12:24 PM EST 10/06/2024 12:24 PM EST Karli Morales MD POINT OF CARE TEST O RDERABLES [facility] [place] [address] * (ABNORMAL) Troponin-T, High Sensitivity (10/06/2024 11:13 AM EST) Pathologist [facility] Troponin-T, High Sensitivity Initial 21(H) <=14 ng/L 10/06/2024 11:[address] [facility] Comment: This patient's troponin T [...] troponin value can be found in the [facility] Test Catalog Troponin - https://one-.testcatalog.org/catalogs/565/files/46100 Reference: [place] Definition of Myocardial Infarction. Journal of the [place] [employer] 2018;72:8113-3805 Blood VENOUS BLOOD SPECIMEN / Unknown Venipuncture / Unknown 10/06/2024 11:13 AM EST 10/06/2024 11:17 AM EST Karli Morales MD CHEMISTRY ORDERABLES [facility] [place] [address] * XR Chest One View (10/06/2024 10:59 AM EST) WORKSTATION ID [id number] RAD Anatomical Region Laterality Modality Chest N/A [...] who have questions please contact the health customer care agent that requested your imaging first. ? Narrative [...] patients who have questions please contactthe health customer care agent that requested your imaging first. Electronically signed by: MICHELLE ARSHAD MD, [facility]([phone]), at 10/06/2024 3:00 PM Karli Morales MD IMG DX ORDERABLES * POC, GLUCOSE (10/06/2024 8:42 AM EST) [facility] Signature Glucometer, POC 169 65 - 199 mg/dL 10/06/2024 8:[address] [facility] Comment:Supplemental ranges: <140 mg/dL before meals <180 mg/dL all other times of the day. Blood CAPILLARY BLOOD / Unknown 10/06/2024 8:42 AM EST 10/06/2024 8:42 AM EST Gissell Velazco MD POINT OF CARE TEST ORDERABLES [facility] [place] [address] * POC, GLUCOSE (10/06/2024 7:34 AM EST) Glucometer, POC 175 65 - 199 mg/dL 10/06/2024 7:[address] [facility] Comment:Supplemental ranges: <140 mg/dL before meals <180 mg/dL all other times of the day. Blood CAPILLARY BLOOD / Unknown 10/06/2024 7:34 AM EST 10/06/2024 7:34 AM EST Gissell Velazco MD POINT OF CARE TEST ORDERABLES [facility] [place] [address] * POC, GLUCOSE (10/06/2024 4:33 AM EST) Glucometer, POC 147 65 - 199 mg/dL 10/06/2024 4:[address] [facility] Comment:Supplemental ranges: <140 mg/dL before meals <180 mg/dL all other times of the day. Blood CAPILLARY BLOOD / Unknown 10/06/2024 4:33 AM EST 10/06/2024 4:34 AM EST Gissell Velazco MD POINT OF CARE TEST ORDERABLES [facility] [place] [address] * POC, GLUCOSE (10/06/2024 3:55 AM EST) Glucometer, POC 149 65 - 199 mg/dL 10/06/2024 3:[address] [facility] Comment:Supplemental ranges: <140 mg/dL before meals <180 mg/dL all other times of the day. Blood CAPILLARY BLOOD / Unknown 10/06/2024 3:55 AM EST 10/06/2024 3:56 AM EST Gissell Velazco MD POINT OF CARE TEST ORDERABLES [facility] [place] [address] * Phosphorus (10/06/2024 12:33 AM EST) Phosphorus 2.5 2.5 - 4.5 mg/dL 10/06/2024 12:[address] [facility] Blood VENOUS BLOOD SPECIMEN / Unknown Venipuncture / Unknown 10/06/2024 12:33 AM EST 10/06/2024 12:37 AM EST Librado Patel MD CHEMISTRY ORDERABLES [facility] [place] [address] * Magnesium (10/06/2024 12:33 AM EST) Magnesium 0.73 0.69 - 1.07 mMol/L 10/06/2024 12:[address] [facility] Blood VENOUS BLOOD SPECIMEN / Unknown Venipuncture / Unknown 10/06/2024 12:33 AM EST 10/06/2024 12:37 AM EST Librado Patel MD CHEMISTRY ORDERABLES Performing Organization Address City/[facility]/ZIP Co de Phone Number [facility] [place] [address] * (ABNORMAL) Basic Metabolic Panel (10/06/2024 12:33 AM EST) Glucose 211(H) 65 - 199 mg/dL 10/06/2024 12:[address] [facility] Comment:Glucose Concentratio n >=200 mg/dL plus symptoms is consistent with Diabetes Mellitus. Blood Urea Nitrogen 21(H) 8 - 18 mg/dL 10/06/2024 12:[address] [facility] Creatinine 0.45(L) 0.70 - 1.20 mg/dL 10/06/2024 12:56 AM [facility] Sodium 138 135 - 145 mMol/L 10/06/2024 12:56 AM [facility] Potassium 4.3 3.5 - 5.0 mMol/L 10/06/2024 12:56 AM [facility] Chloride 101 98 - 107 mMol/L 10/06/2024 12:56 AM [facility] Carbon Dioxide 26 22 - 31 mMol/L 10/06/2024 12:56 AM [facility] Anion Gap 11 5 - 15 mMol/L 10/06/2024 12:56 AM [facility] Calcium 9.0 8.5 - 10.5 mg/dL 10/06/2024 12:56 AM [facility] Est Glomerular Filtration Rate - Female 102 mL/min/1. 73 m?? 10/06/2024 12:56 AM [facility] Comment: This patient's estimated GFR [...] AM EST Librado Patel MD CHEMISTRY ORDERABLES [facility] [place] [address] * (ABNORMAL) CBC (with Diff) (10/06/2024 12:33 AM EST) White Blood Cell 16.59(H) 4.00 - 9.50 x10(3)/mc L 10/06/2024 12:42 AM [facility] Red Blood Cell 3.51(L) 4.00 - 5.21 x10(6)/mc L 10/06/2024 12:42 AM [facility] Hemoglobin 10.8(L) 11.7 - 15.5 g/dL 10/06/2024 12:42 AM [facility] Hematocrit 32.9(L) 35.7 - 45.8 % 10/06/2024 12:42 AM [facility] Mean Cell Volume 93.7 82.6 - 94.4 fL 10/06/2024 12:42 AM [facility] Mean Cell Hemoglobin 30.8 27.1 - 32.0 pg 10/06/2024 12:42 AM [facility] Mean Cell Hemoglobin Concentration 32.8 31.7 - 35.0 g/dL 10/06/2024 12:42 AM [facility] Platelet 237 145 - 357 x10(3)/mc L 10/06/2024 12:42 AM [facility] Mean Platelet Volume 9.8 7.6 - 12.9 fL 10/06/2024 12:42 AM [facility] RDW Standard Deviation 50.4(H) 37.0 - 46.0 fL 10/06/2024 12:42 AM [facility] RDW coefficient of variation 14.8(H) 11.5 - 14.1 % 10/06/2024 12:42 AM [facility] NRBC% auto 0.0 % 10/06/2024 12:42 AM [facility] NRBC Absolute <0.01 <0.01 x10(3)/mc L 10/06/2024 12:42 AM [facility] Neutrophil % 86.8 % 10/06/2024 12:42 AM [facility] Neutrophil Absolute (ANC) - Automated 14.40(H) 1.70 - 6.10 x10(3)/mc L 10/06/2024 12:42 AM [facility] Lymph % 6.5 % 10/06/2024 12:42 AM [facility] Lymph Absolute 1.08 0.90 - 3.20 x10(3)/mc L 10/06/2024 12:42 AM [facility] Monocyte % 5.0 % 10/06/2024 12:42 AM [facility] Monocyte Absolute 0.83 0.30 - 0.90 x10(3)/mc L 10/06/2024 12:42 AM [facility] Eos % 1.0 % 10/06/2024 12:42 AM [facility] Eos Absolute 0.16 0.00 - 0.40 x10(3)/mc L 10/06/2024 12:42 AM [facility] Basophil % 0.1 % 10/06/2024 12:42 AM [facility] Baso Absolute <0.04 0.00 - 0.10 x10(3)/mc L 10/06/2024 12:42 AM [facility] Immature Gran % 0.6 % 12:42 AM [facility] Immature Gran Absolute 0.10(H) 0.00 - 0.04 x10(3)/mc L 10/06/2024 12:42 AM [facility] Blood VENOUS BLOOD SPECIMEN / Unknown Venipuncture / Unknown 10/06/2024 12:33 AM EST 10/06/2024 12:38 AM EST Librado Patel MD HEMATOLOGY ORDERABLE S [facility] [place] [address] * (ABNORMAL) POC, GLUCOSE (10/06/2024 12:14 AM EST) [facility] Signature Glucometer, POC 200(H) 65 - 199 mg/dL 10/06/2024 12:[address] [facility] Comment:Supplemental ranges: <140 mg/dL before meals <180 mg/dL all other times of the day. Blood CAPILLARY BLOOD / Unknown 10/06/2024 12:14 AM EST 10/06/2024 12:15 AM EST Gissell Velazco MD POINT OF CARE TEST ORDERABLES Performing Organization Address City/[facility]/ZIP Co de Phone Number [facility] [place] [address] * POC, GLUCOSE (10/05/2024 8:33 PM EST) Glucometer, POC 129 65 - 199 mg/dL 10/05/2024 8:[address] [facility] Comment:Supplemental ranges: <140 mg/dL before meals <180 mg/dL all other times of the day. Blood CAPILLARY BLOOD / Unknown 10/05/2024 8:33 PM EST 10/05/2024 8:34 PM EST Gissell Velazco MD POINT OF CARE TEST ORDERABLES Performing Organization Address City/[facility] Co de Phone Number [facility] [place] [address] * POC, GLUCOSE (10/05/2024 4:59 PM EST) Glucometer, POC 185 65 - 199 mg/dL 10/05/2024 4:[address] [facility] Comment:Supplemental ranges: <140 mg/dL before meals <180 mg/dL all other times of the day. Blood CAPILLARY BLOOD / Unknown 10/05/2024 4:59 PM EST 10/05/2024 5:00 PM EST Gissell Velazco MD POINT OF CARE TEST ORDERABLES [facility] [place] [address] * POC, GLUCOSE (10/05/2024 12:40 PM EST) Glucometer, POC 137 65 - 199 mg/dL 10/05/2024 12:[address] [facility] Comment:Supplemental ranges: <140 mg/dL before meals <180 mg/dL all other times of the day. Blood CAPILLARY BLOOD / Unknown 10/05/2024 12:40 PM EST 10/05/2024 12:40 PM EST Gissell Velazco MD POINT OF CARE TEST ORDERABLES Performing Organization Address City/[facility]/ZIP Co de Phone Number [facility] [place] [address] * POC, GLUCOSE (10/05/2024 8:53 AM EST) Glucometer, POC 160 65 - 199 mg/dL 10/05/2024 8:[address] [facility] Comment:Supplemental ranges: <140 mg/dL before meals <180 mg/dL all other times of the day. Blood CAPILLARY BLOOD / Unknown 10/05/2024 8:53 AM EST 10/05/2024 8:54 AM EST Gissell Velazco MD POINT OF CARE TEST ORDERABLES Performing Organization Address City/[facility] Co de Phone Number [facility] [place] [address] * POC, GLUCOSE (10/05/2024 4:11 AM EST) Glucometer, POC 181 65 - 199 mg/dL 10/05/2024 4:[address] [facility] Comment:Supplemental ranges: <140 mg/dL before meals <180 mg/dL all other times of the day. Blood CAPILLARY BLOOD / Unknown 10/05/2024 4:11 AM EST 10/05/2024 4:12 AM EST Gissell Velazco MD POINT OF CARE TEST ORDERABLES [facility] [place] [address] * Sedimentation rate (10/05/2024 12:08 AM EST) Sedimentation Rate Automated 40 3 - 46 mm/hr 10/05/2024 6:[address] [facility] Blood VENOUS BLOOD SPECIMEN / Unknown Venipuncture / Unknown 10/05/2024 12:08 AM EST 10/05/2024 12:17 AM EST Gissell Velazco MD HEMATOLOGY ORDERAB LES Performing Organization Address [facility] [place] [address] * (ABNORMAL) CRP, acute inflammation (10/05/2024 12:08 AM EST) C-Reactive Protein 8.6(H) <=4.9 mg/L 10/05/2024 6:[address] [facility] Blood VENOUS BLOOD SPECIMEN / Unknown Venipuncture / Unknown 10/05/2024 12:08 AM EST 10/05/2024 12:17 AM EST Gissell Velazco MD CHEMISTRY ORDERABL ES Performing Organization Address City/[facility]/ZIP Co de Phone Number [facility] [place] [address] * Phosphorus (10/05/2024 12:08 AM EST) Phosphorus 4.1 2.5 - 4.5 mg/dL 10/05/2024 12:[address] [facility] Blood VENOUS BLOOD SPECIMEN / Unknown Venipuncture / Unknown 10/05/2024 12:08 AM EST 10/05/2024 12:17 AM EST Librado Patel MD CHEMISTRY ORDERABLES [facility] [place] [address] * Magnesium (10/05/2024 12:08 AM EST) Pathologist [facility] Magnesium 0.85 0.69 - 1.07 mMol/L 10/05/2024 12:46 AM [facility] Blood VENOUS BLOOD SPECIMEN / Unknown Venipuncture / Unknown 10/05/2024 12:08 AM EST 10/05/2024 12:17 AM EST Librado Patel MD CHEMISTRY ORDERABLES [facility] [place] [address] * (ABNORMAL) Basic Metabolic Panel (10/05/2024 12:08 AM EST) Pathologist [facility] Glucose 136 65 - 199 mg/dL 10/05/2024 12:46 AM [facility] Comment:Glucose Concentratio n >=200 mg/dL plus symptoms is consistent with Diabetes Mellitus. Blood Urea Nitrogen 24(H) 8 - 18 mg/dL 10/05/2024 12:46 AM [facility] Creatinine 0.36(L) 0.70 - 1.20 mg/dL 10/05/2024 12:46 AM [facility] Sodium 139 135 - 145 mMol/L 10/05/2024 12:46 AM [facility] Potassium 4.2 3.5 - 5.0 mMol/L 10/05/2024 12:46 AM [facility] Chloride 103 98 - 107 mMol/L 10/05/2024 12:46 AM [facility] Carbon Dioxide 29 22 - 31 mMol/L 10/05/2024 12:46 AM [facility] Anion Gap 7 5 - 15 mMol/L 10/05/2024 12:46 AM [facility] Calcium 9.1 8.5 - 10.5 mg/dL 10/05/2024 12:46 AM [facility] Est Glomerular Filtration Rate - Female 108 mL/min/1. 73 m?? 10/05/2024 12:46 AM [facility] Comment: This patient's estimated GFR [...] Patel MD CHEMISTRY ORDERABLES Performing Organization Address City/State/[facility] Co de Phone Number [facility] [place] [address] * (ABNORMAL) CBC (with Diff) (10/05/2024 12:08 AM EST) White Blood Cell 13.56(H) 4.00 - 9.50 x10(3)/mc L 10/05/2024 12:35 AM [facility] Red Blood Cell 3.55(L) 4.00 - 5.21 x10(6)/mc L 10/05/2024 12:35 AM [facility] Hemoglobin 10.8(L) 11.7 - 15.5 g/dL 10/05/2024 12:35 AM [facility] Hematocrit 33.5(L) 35.7 - 45.8 % 10/05/2024 12:35 AM [facility] Mean Cell Volume 94.4 82.6 - 94.4 fL 10/05/2024 12:35 AM [facility] Mean Cell Hemoglobin 30.4 27.1 - 32.0 pg 10/05/2024 12:35 AM [facility] Mean Cell Hemoglobin Concentration 32.2 31.7 - 35.0 g/dL 10/05/2024 12:35 AM [facility] Platelet 241 145 - 357 x10(3)/mc L 10/05/2024 12:35 AM [facility] Mean Platelet Volume 10.3 7.6 - 12.9 fL 10/05/2024 12:35 AM [facility] RDW Standard Deviation 50.0(H) 37.0 - 46.0 fL 10/05/2024 12:35 AM [facility] RDW coefficient of variation 14.6(H) 11.5 - 14.1 % 10/05/2024 12:35 AM [facility] NRBC% auto 0.0 % 10/05/2024 12:35 AM [facility] NRBC Absolute <0.01 <0.01 x10(3)/mc L 10/05/2024 12:35 AM [facility] Neutrophil % 86.3 % 10/05/2024 12:35 AM [facility] Neutrophil Absolute (ANC) - Automated 11.69(H) 1.70 - 6.10 x10(3)/mc L 10/05/2024 12:35 AM [facility] Lymph % 5.5 % 10/05/2024 12:35 AM [facility] Lymph Absolute 0.75(L) 0.90 - 3.20 x10(3)/mc L 10/05/2024 12:35 AM [facility] Monocyte % 5.8 % 10/05/2024 12:35 AM [facility] Monocyte Absolute 0.79 0.30 - 0.90 x10(3)/mc L 10/05/2024 12:35 AM [facility] Eos % 1.6 % 10/05/2024 12:35 AM [facility] Eos Absolute 0.22 0.00 - 0.40 x10(3)/mc L 10/05/2024 12:[address] [facility] Basophil % 0.1 % 10/05/2024 12:[address] [facility] Baso Absolute <0.04 0.00 - 0.10 x10(3)/mc L 10/05/2024 12:[address] [facility] Immature Gran % 0.7 % 12:[address] [facility] Immature Gran Absolute 0.09(H) 0.00 - 0.04 x10(3)/mc L 10/05/2024 12:[address] [facility] Blood VENOUS BLOOD SPECIMEN / Unknown Venipuncture / Unknown 10/05/2024 12:08 AM EST 10/05/2024 12:17 AM EST Librado Patel MD [place] [address] * POC, GLUCOSE (10/04/2024 11:47 PM EST) Glucometer, POC 127 65 - 199 mg/dL 10/04/2024 11:[address] [facility] Comment:Supplemental ranges: <140 mg/dL before meals <180 mg/dL all other times of the day. Blood CAPILLARY BLOOD / Unknown 10/04/2024 11:47 PM EST 10/04/2024 11:47 PM EST Gissell Velazco MD POINT [place] [address] * MRI Brain wwo Contrast (Generic) (10/04/2024 10:30 PM EST) WORKSTATION ID [id number] DH RAD Anatomical Region Laterality Modality Head [...] who have questions please contact the health customer care agent that requested your imaging first. ? Electronically signed by: Armando Pan MD, [facility] ([phone]), at 10/05/2024 12:31 AM Narrative 10/05/2024 12:31 [...] patients who have questions please contactthe health customer care agent that requested your imaging first. Electronically signed by: Armando Pan MD, [facility]([phone]), at 10/05/2024 12:31 AM Gissell Velazco MD IMG MRI ORDERABLES * POC, GLUCOSE (10/04/2024 7:31 PM EST) Glucometer, POC 119 65 - 199 mg/dL 10/04/2024 7:[address] [facility] Comment:Supplemental ranges: <140 mg/dL before meals <180 mg/dL all other times of the day. Blood CAPILLARY BLOOD / Unknown 10/04/2024 7:31 PM EST 10/04/2024 7:31 PM EST Gissell Velazco MD POINT OF CARE TEST ORDERABLES [facility] [place] [address] * POC, GLUCOSE (10/04/2024 4:53 PM EST) Glucometer, POC 119 65 - 199 mg/dL 10/04/2024 4:[address] [facility] Comment:Supplemental ranges: <140 mg/dL before meals <180 mg/dL all other times of the day. Blood CAPILLARY BLOOD / Unknown 10/04/2024 4:53 PM EST 10/04/2024 4:54 PM EST Gissell Velazco MD POINT OF CARE TEST ORDERABLES [facility] [place] [address] * IR G-Tube Placement (10/04/2024 1:00 PM [...] - 199 mg/dL 10/04/2024 8:[address] [facility] Comment:Supplemental ranges: <140 mg/dL before meals <180 mg/dL all other times of the day. Blood CAPILLARY BLOOD / Unknown 10/04/2024 8:12 AM EST 10/04/2024 8:12 AM EST Gissell Velazco MD POINT OF CARE TEST ORDERABLES Performing Organization Address City/[facility] Co de Phone Number [facility] [place] [phone] * POC, GLUCOSE (10/04/2024 3:59 AM EST) Glucometer, POC 102 65 - 199 mg/dL 10/04/2024 3:[address] [facility] Comment:Supplemental ranges: <140 mg/dL before meals <180 mg/dL all other times of the day. Blood CAPILLARY BLOOD / Unknown 10/04/2024 3:59 AM EST 10/04/2024 3:59 AM EST Narrative Authorizing Provider Result Duke Velazco MD POINT OF CARE TEST ORDERABLES [facility] [place] [place] [address] * CT Head wo Contrast (Generic) (10/04/2024 1:40 AM EST) WORKSTATION ID [id number] RAD Anatomical Region Laterality Modality Head Computed [...] who have questions please contact the health customer care agent that requested your imaging first. ? Narrative [...] patients who have questions please contactthe health customer care agent that requested your imaging first. Gissell Velazco MD IMG CT ORDERABLES * Phosphorus (10/04/2024 12:29 AM EST) Pathologist [facility] Phosphorus 2.6 2.5 - 4.5 mg/dL 10/04/2024 1:[address] [facility] Blood VENOUS BLOOD SPECIMEN / Unknown Venipuncture / Unknown 10/04/2024 12:29 AM EST 10/04/2024 12:35 AM EST Librado Patel MD CHEMISTRY ORDERABLES Performing Organization Address [facility]/ZIP Co de Phone Number [facility] [place] [address] * Magnesium (10/04/2024 12:29 AM EST) Pathologist [facility] Magnesium 0.80 0.69 - 1.07 mMol/L 10/04/2024 1:[address] [facility] Blood VENOUS BLOOD SPECIMEN / Unknown Venipuncture / Unknown 10/04/2024 12:29 AM EST 10/04/2024 12:35 AM EST Librado Patel MD CHEMISTRY ORDERABLES [facility] [place] [address] * (ABNORMAL) Basic Metabolic Panel (10/04/2024 12:29 AM EST) Pathologist [facility] Glucose 166 65 - 199 mg/dL 10/04/2024 1:[address] [facility] Comment:Glucose Concentratio n >=200 mg/dL plus symptoms is consistent with Diabetes Mellitus. Blood Urea Nitrogen 24(H) 8 - 18 mg/dL 10/04/2024 1:03 AM [facility] Creatinine 0.36(L) 0.70 - 1.20 mg/dL 10/04/2024 1:03 AM [facility] Sodium 142 135 - 145 mMol/L 10/04/2024 1:03 AM [facility] Potassium 4.1 3.5 - 5.0 mMol/L 10/04/2024 1:03 AM [facility] Chloride 106 98 - 107 mMol/L 10/04/2024 1:03 AM [facility] Carbon Dioxide 26 22 - 31 mMol/L 10/04/2024 1:03 AM [facility] Anion Gap 10 5 - 15 mMol/L 10/04/2024 1:03 AM [facility] Calcium 8.9 8.5 - 10.5 mg/dL 10/04/2024 1:03 AM [facility] Est Glomerular Filtration Rate - Female 108 mL/min/1. 73 m?? 10/04/2024 1:03 AM [facility] Comment: This patient's estimated GFR [...] AM EST Librado Patel MD CHEMISTRY ORDERABLES [facility] [place] [address] * (ABNORMAL) CBC (with Diff) (10/04/2024 12:29 AM EST) [facility] White Blood Cell 14.67(H) 4.00 - 9.50 x10(3)/mc L 10/04/2024 12:40 AM [facility] Red Blood Cell 3.46(L) 4.00 - 5.21 x10(6)/mc L 10/04/2024 12:40 AM [facility] Hemoglobin 10.4(L) 11.7 - 15.5 g/dL 10/04/2024 12:40 AM [facility] Hematocrit 32.8(L) 35.7 - 45.8 % 10/04/2024 12:40 AM [facility] Mean Cell Volume 94.8(H) 82.6 - 94.4 fL 10/04/2024 12:40 AM [facility] Mean Cell Hemoglobin 30.1 27.1 - 32.0 pg 10/04/2024 12:40 AM [facility] Mean Cell Hemoglobin Concentration 31.7 31.7 - 35.0 g/dL 10/04/2024 12:40 AM [facility] Platelet 303 145 - 357 x10(3)/mc L 10/04/2024 12:40 AM [facility] Mean Platelet Volume 9.8 7.6 - 12.9 fL 10/04/2024 12:40 AM [facility] RDW Standard Deviation 50.2(H) 37.0 - 46.0 fL 10/04/2024 12:40 AM [facility] RDW coefficient of variation 14.6(H) 11.5 - 14.1 % 10/04/2024 12:40 AM [facility] NRBC% auto 0.0 % 10/04/2024 12:40 AM [facility] NRBC Absolute <0.01 <0.01 x10(3)/mc L 10/04/2024 12:40 AM [facility] Neutrophil % 85.3 % 10/04/2024 12:40 AM [facility] Neutrophil Absolute (ANC) - Automated 12.52(H) 1.70 - 6.10 x10(3)/mc L 10/04/2024 12:40 AM [facility] Lymph % 6.6 % 10/04/2024 12:40 AM [facility] Lymph Absolute 0.97 0.90 - 3.20 x10(3)/mc L 10/04/2024 12:40 AM [facility] Monocyte % 6.1 % 10/04/2024 12:40 AM [facility] Monocyte Absolute 0.89 0.30 - 0.90 x10(3)/mc L 10/04/2024 12:40 AM [facility] Eos % 1.3 % 10/04/2024 12:40 AM [facility] Eos Absolute 0.19 0.00 - 0.40 x10(3)/mc L 10/04/2024 12:40 AM [facility] Basophil % 0.1 % 10/04/2024 12:40 AM [facility] Baso Absolute <0.04 0.00 - 0.10 x10(3)/mc L 10/04/2024 12:40 AM [facility] Immature Gran % 0.6 % 12:40 AM [facility] Immature Gran Absolute 0.09(H) 0.00 - 0.04 x10(3)/mc L 10/04/2024 12:40 AM [facility] Blood VENOUS BLOOD SPECIMEN / Unknown Venipuncture / Unknown 10/04/2024 12:29 AM EST 10/04/2024 12:35 AM EST Librado Patel MD HEMATOLOGY ORDERABLE S [facility] [place] [address] * POC, GLUCOSE (10/04/2024 12:06 AM EST) Glucometer, POC 158 65 - 199 mg/dL 10/04/2024 12:[address] [facility] Comment:Supplemental ranges: <140 mg/dL before meals <180 mg/dL all other times of the day. Blood CAPILLARY BLOOD / Unknown 10/04/2024 12:06 AM EST 10/04/2024 12:06 AM EST Gissell Velazco MD POINT OF CARE TEST ORDERABLES [facility] [place] [address] * POC, GLUCOSE (10/03/2024 7:47 PM EST) Glucometer, POC 180 65 - 199 mg/dL 10/03/2024 7:[address] [facility] Comment:Supplemental ranges: <140 mg/dL before meals <180 mg/dL all other times of the day. Blood CAPILLARY BLOOD / Unknown 10/03/2024 7:47 PM EST 10/03/2024 7:48 PM EST Gissell Velazco MD POINT OF CARE TEST ORDERABLES Performing Organization Address City/[facility]/ZIP Co de Phone Number [facility] [place] [phone] * POC, GLUCOSE (10/03/2024 3:49 PM EST) Glucometer, POC 157 65 - 199 mg/dL 10/03/2024 3:[address] [facility] Comment:Supplemental ranges: <140 mg/dL before meals <180 mg/dL all other times of the day. Blood CAPILLARY BLOOD / Unknown 10/03/2024 3:49 PM EST 10/03/2024 3:50 PM EST Gissell Velazco MD POINT OF CARE TEST ORDERABLES [facility] [place] [address] * POC, GLUCOSE (10/03/2024 11:24 AM EST) Glucometer, POC 149 65 - 199 mg/dL 10/03/2024 11:[address] [facility] Comment:Supplemental ranges: <140 mg/dL before meals <180 mg/dL all other times of the day. Blood CAPILLARY BLOOD / Unknown 10/03/2024 11:24 AM EST 10/03/2024 11:25 AM EST Gissell Velazco MD POINT OF CARE TEST ORDERABLES [facility] [place] [address] * POC, GLUCOSE (10/03/2024 8:00 AM EST) Glucometer, POC 141 65 - 199 mg/dL 10/03/2024 8:[address] [facility] Comment:Supplemental ranges: <140 mg/dL before meals <180 mg/dL all other times of the day. Blood CAPILLARY BLOOD / Unknown 10/03/2024 8:00 AM EST 10/03/2024 8:01 AM EST Gissell Velazco MD POINT OF CARE TEST ORDERABLES Performing Organization Address City/[facility]/ZIP Co de Phone Number [facility] [place] [address] * Phosphorus (10/03/2024 4:05 AM EST) Phosphorus 2.7 2.5 - 4.5 mg/dL 10/03/2024 4:[address] [facility] Blood VENOUS BLOOD SPECIMEN / Unknown Venipuncture / Unknown 10/03/2024 4:05 AM EST 10/03/2024 4:26 AM EST Librado Patel MD CHEMISTRY ORDERABLES [facility] [place] [address] * Magnesium (10/03/2024 4:05 AM EST) Pathologist [facility] Magnesium 0.88 0.69 - 1.07 mMol/L 10/03/2024 4:53 AM [facility] Blood VENOUS BLOOD SPECIMEN / Unknown Venipuncture / Unknown 10/03/2024 4:05 AM EST 10/03/2024 4:26 AM EST Librado Patel MD CHEMISTRY ORDERABLES Performing Organization Address City/[facility]/ZIP Co de Phone Number [facility] [place] [address] * (ABNORMAL) Basic Metabolic Panel (10/03/2024 4:05 AM EST) [facility] Glucose 199 65 - 199 mg/dL 10/03/2024 4:53 AM [facility] Comment:Glucose Concentratio n >=200 mg/dL plus symptoms is consistent with Diabetes Mellitus. Blood Urea Nitrogen 22(H) 8 - 18 mg/dL 10/03/2024 4:53 AM [facility] Creatinine 0.35(L) 0.70 - 1.20 mg/dL 10/03/2024 4:53 AM [facility] Sodium 146(H) 135 - 145 mMol/L 10/03/2024 4:53 AM [facility] Potassium 4.0 3.5 - 5.0 mMol/L 10/03/2024 4:53 AM [facility] Chloride 108(H) 98 - 107 mMol/L 10/03/2024 4:53 AM [facility] Carbon Dioxide 30 22 - 31 mMol/L 10/03/2024 4:53 AM [facility] Anion Gap 8 5 - 15 mMol/L 10/03/2024 4:53 AM [facility] Calcium 9.1 8.5 - 10.5 mg/dL 10/03/2024 4:[address] [facility] Est Glomerular Filtration Rate - Female 109 mL/min/1. 73 m?? 10/03/2024 4:53 AM [facility] Comment: This patient's estimated GFR [...] AM EST Librado Patel MD CHEMISTRY ORDERABLES [facility] [place] [phone] * (ABNORMAL) CBC (with Diff) (10/03/2024 4:05 AM EST) White Blood Cell 15.33(H) 4.00 - 9.50 x10(3)/mc L 10/03/2024 4:29 AM [facility] Red Blood Cell 3.44(L) 4.00 - 5.21 x10(6)/mc L 10/03/2024 4:29 AM [facility] Hemoglobin 10.5(L) 11.7 - 15.5 g/dL 10/03/2024 4:29 AM [facility] Hematocrit 32.4(L) 35.7 - 45.8 % 10/03/2024 4:29 AM [facility] Mean Cell Volume 94.2 82.6 - 94.4 fL 10/03/2024 4:29 AM [facility] Mean Cell Hemoglobin 30.5 27.1 - 32.0 pg 10/03/2024 4:29 AM [facility] Mean Cell Hemoglobin Concentration 32.4 31.7 - 35.0 g/dL 10/03/2024 4:29 AM [facility] Platelet 359(H) 145 - 357 x10(3)/mc L 10/03/2024 4:29 AM [facility] Mean Platelet Volume 9.8 7.6 - 12.9 fL 10/03/2024 4:29 AM [facility] RDW Standard Deviation 49.1(H) 37.0 - 46.0 fL 10/03/2024 4:29 AM [facility] RDW coefficient of variation 14.6(H) 11.5 - 14.1 % 10/03/2024 4:29 AM [facility] NRBC% auto 0.0 % 10/03/2024 4:29 AM [facility] NRBC Absolute <0.01 <0.01 x10(3)/mc L 10/03/2024 4:29 AM [facility] Neutrophil % 87.6 % 10/03/2024 4:29 AM [facility] Neutrophil Absolute (ANC) - Automated 13.43(H) 1.70 - 6.10 x10(3)/mc L 10/03/2024 4:29 AM [facility] Lymph % 5.0 % 10/03/2024 4:29 AM [facility] Lymph Absolute 0.77(L) 0.90 - 3.20 x10(3)/mc L 10/03/2024 4:29 AM [facility] Monocyte % 5.9 % 10/03/2024 4:29 AM [facility] Monocyte Absolute 0.90 0.30 - 0.90 x10(3)/mc L 10/03/2024 4:29 AM [facility] Eos % 0.7 % 10/03/2024 4:29 AM [facility] Eos Absolute 0.11 0.00 - 0.40 x10(3)/mc L 10/03/2024 4:29 AM [facility] Basophil % 0.1 % 10/03/2024 4:29 AM [facility] Baso Absolute <0.04 0.00 - 0.10 x10(3)/mc L 10/03/2024 4:29 AM [facility] Immature Gran % 0.7 % 4:29 AM [facility] Immature Gran Absolute 0.10(H) 0.00 - 0.04 x10(3)/mc L 10/03/2024 4:29 AM [facility] Blood VENOUS BLOOD SPECIMEN / Unknown Venipuncture / Unknown 10/03/2024 4:05 AM EST 10/03/2024 4:26 AM EST Librado Patel MD HEMATOLOGY ORDERABLE S [facility] [place] [address] * POC, GLUCOSE (10/03/2024 4:03 AM EST) Glucometer, POC 179 65 - 199 mg/dL 10/03/2024 4:04 AM [facility] Comment:Supplemental ranges: <140 mg/dL before meals <180 mg/dL all other times of the day. Blood CAPILLARY BLOOD / Unknown 10/03/2024 4:03 AM EST 10/03/2024 4:04 AM EST Gissell Velazco MD POINT OF CARE TEST ORDERABLES [facility] [place] [address] * POC, GLUCOSE (10/02/2024 11:39 PM EST) Glucometer, POC 159 65 - 199 mg/dL 10/02/2024 11:[address] [facility] Comment:Supplemental ranges: <140 mg/dL before meals <180 mg/dL all other times of the day. Blood CAPILLARY BLOOD / Unknown 10/02/2024 11:39 PM EST 10/02/2024 11:39 PM EST Gissell Velaczo MD POINT OF CARE TEST ORDERABLES [facility] [place] [address] * POC, GLUCOSE (10/02/2024 8:33 PM EST) Glucometer, POC 141 65 - 199 mg/dL 10/02/2024 8:[address] [facility] Comment:Supplemental ranges: <140 mg/dL before meals <180 mg/dL all other times of the day. Blood CAPILLARY BLOOD / Unknown 10/02/2024 8:33 PM EST 10/02/2024 8:33 PM EST Gissell Velazco MD POINT OF CARE TEST ORDERABLES Performing Organization Address City/[facility] Co de Phone Number [facility] [place] [address] * POC, GLUCOSE (10/02/2024 4:08 PM EST) Glucometer, POC 175 65 - 199 mg/dL 10/02/2024 4:[address] [facility] Comment:Supplemental ranges: <140 mg/dL before meals <180 mg/dL all other times of the day. Blood CAPILLARY BLOOD / Unknown 10/02/2024 4:08 PM EST 10/02/2024 4:08 PM EST Gissell Velazco MD POINT OF CARE TEST ORDERABLES [facility] [place] [address] * POC, GLUCOSE (10/02/2024 11:52 AM EST) Glucometer, POC 129 65 - 199 mg/dL 10/02/2024 11:[address] [facility] Comment:Supplemental ranges: <140 mg/dL before meals <180 mg/dL all other times of the day. Blood CAPILLARY BLOOD / Unknown 10/02/2024 11:52 AM EST 10/02/2024 11:52 AM EST Gissell Velazco MD POINT OF CARE TEST ORDERABLES Performing Organization Address City/[facility] Co de Phone Number [facility] [place] [address] * POC, GLUCOSE (10/02/2024 8:27 AM EST) Glucometer, POC 122 65 - 199 mg/dL 10/02/2024 8:27 AM EST [facility] Comment:Supplemental ranges: <140 mg/dL before meals <180 mg/dL all other times of the day. Blood CAPILLARY BLOOD / Unknown 10/02/2024 8:27 AM EST 10/02/2024 8:27 AM EST Gissell Velazco MD POINT OF CARE TEST ORDERABLES Performing Organization Address City/[facility] Co de Phone Number [facility] [place] [place] [address] * POC, GLUCOSE (10/02/2024 4:41 AM EST) Glucometer, POC 121 65 - 199 mg/dL 10/02/2024 4:[address] [facility] Comment:Supplemental ranges: <140 mg/dL before meals <180 mg/dL all other times of the day. Blood CAPILLARY BLOOD / Unknown 10/02/2024 4:41 AM EST 10/02/2024 4:41 AM EST Gissell Velazco MD POINT OF CARE TEST ORDERABLES Performing Organization Address City/State/[facility] Co de Phone Number [facility] [place] [place] [address] * Phosphorus (10/02/2024 1:49 AM EST) [facility] Phosphorus 2.9 2.5 - 4.5 mg/dL 10/02/2024 2:[address] [facility] Blood VENOUS BLOOD SPECIMEN / Unknown Venipuncture / Unknown 10/02/2024 1:49 AM EST 10/02/2024 1:54 AM EST Librado Patel MD CHEMISTRY ORDERABLES Performing Organization Address City/[facility]/ZIP Co de Phone Number [facility] [place] [place] [address] * Magnesium (10/02/2024 1:49 AM EST) [facility] Magnesium 0.83 0.69 - 1.07 mMol/L 10/02/2024 2:[address] [facility] Blood VENOUS BLOOD SPECIMEN / Unknown Venipuncture / Unknown 10/02/2024 1:49 AM EST 10/02/2024 1:54 AM EST Librado Patel MD CHEMISTRY ORDERABLES Performing Organization Address City/[facility]/ZIP Co de Phone Number [facility] [place] [place] [address] * (ABNORMAL) Basic Metabolic Panel (10/02/2024 1:49 AM EST) [facility] Glucose 123 65 - 199 mg/dL 10/02/2024 2:[address] [facility] Comment:Glucose Concentratio n >=200 mg/dL plus symptoms is consistent with Diabetes Mellitus. Blood Urea Nitrogen 27(H) 8 - 18 mg/dL 10/02/2024 2:[address] [facility] Creatinine 0.39(L) 0.70 - 1.20 mg/dL 10/02/2024 2:[address] [facility] Sodium 146(H) 135 - 145 mMol/L 10/02/2024 2:[address] [facility] Potassium 3.6 3.5 - 5.0 mMol/L 10/02/2024 2:[address] [facility] Chloride 108(H) 98 - 107 mMol/L 10/02/2024 2:25 AM [facility] Carbon Dioxide 28 22 - 31 mMol/L 10/02/2024 2:25 AM [facility] Anion Gap 10 5 - 15 mMol/L 10/02/2024 2:25 AM [facility] Calcium 8.7 8.5 - 10.5 mg/dL 10/02/2024 2:25 AM [facility] Est Glomerular Filtration Rate - Female 106 mL/min/1. 73 m?? 10/02/2024 2:25 AM [facility] Comment: This patient's estimated GFR [...] AM EST Librado Patel MD CHEMISTRY ORDERABLES [facility] [place] [address] * (ABNORMAL) CBC (with Diff) (10/02/2024 1:49 AM EST) White Blood Cell 19.16(H) 4.00 - 9.50 x10(3)/mc L 10/02/2024 2:18 AM [facility] Red Blood Cell 3.35(L) 4.00 - 5.21 x10(6)/mc L 10/02/2024 2:18 AM [facility] Hemoglobin 10.1(L) 11.7 - 15.5 g/dL 10/02/2024 2:18 AM [facility] Hematocrit 31.1(L) 35.7 - 45.8 % 10/02/2024 2:18 AM [facility] Mean Cell Volume 92.8 82.6 - 94.4 fL 10/02/2024 2:18 AM [facility] Mean Cell Hemoglobin 30.1 27.1 - 32.0 pg 10/02/2024 2:18 AM [facility] Mean Cell Hemoglobin Concentration 32.5 31.7 - 35.0 g/dL 10/02/2024 2:18 AM [facility] Platelet 399(H) 145 - 357 x10(3)/mc L 10/02/2024 2:18 AM [facility] Mean Platelet Volume 10.0 7.6 - 12.9 fL 10/02/2024 2:18 AM [facility] RDW Standard Deviation 46.6(H) 37.0 - 46.0 fL 10/02/2024 2:18 AM [facility] RDW coefficient of variation 14.5(H) 11.5 - 14.1 % 10/02/2024 2:18 AM [facility] NRBC% auto 0.0 % 10/02/2024 2:18 AM [facility] NRBC Absolute <0.01 <0.01 x10(3)/mc L 10/02/2024 2:18 AM [facility] Neutrophil % 85.9 % 10/02/2024 2:18 AM [facility] Neutrophil Absolute (ANC) - Automated 16.45(H) 1.70 - 6.10 x10(3)/mc L 10/02/2024 2:18 AM [facility] Lymph % 6.6 % 10/02/2024 2:18 AM [facility] Lymph Absolute 1.27 0.90 - 3.20 x10(3)/mc L 10/02/2024 2:18 AM [facility] Monocyte % 6.3 % 10/02/2024 2:18 AM [facility] Monocyte Absolute 1.21(H) 0.30 - 0.90 x10(3)/mc L 10/02/2024 2:18 AM [facility] Eos % 0.3 % 10/02/2024 2:18 AM [facility] Eos Absolute 0.05 0.00 - 0.40 x10(3)/mc L 10/02/2024 2:18 AM [facility] Basophil % 0.1 % 10/02/2024 2:18 AM [facility] Baso Absolute <0.04 0.00 - 0.10 x10(3)/mc L 10/02/2024 2:18 AM [facility] Immature Gran % 0.8 % 2:18 AM [facility] Immature Gran Absolute 0.16(H) 0.00 - 0.04 x10(3)/mc L 10/02/2024 2:18 AM [facility] Blood VENOUS BLOOD SPECIMEN / Unknown Venipuncture / Unknown 10/02/2024 1:49 AM EST 10/02/2024 1:54 AM EST Librado Patel MD HEMATOLOGY ORDERABLE S [facility] [place] [address] * POC, GLUCOSE (10/02/2024 12:22 AM EST) [facility] Signature Glucometer, POC 125 65 - 199 mg/dL 10/02/2024 12:23 AM [facility] Comment:Supplemental ranges: <140 mg/dL before meals <180 mg/dL all other times of the day. Blood CAPILLARY BLOOD / Unknown 10/02/2024 12:22 AM EST 10/02/2024 12:23 AM EST Gissell Velazco MD POINT OF CARE TEST ORDERABLES [facility] [place] [address] * POC, GLUCOSE (10/01/2024 7:44 PM EST) Glucometer, POC 161 65 - 199 mg/dL 10/01/2024 7:[address] [facility] Comment:Supplemental ranges: <140 mg/dL before meals <180 mg/dL all other times of the day. Blood CAPILLARY BLOOD / Unknown 10/01/2024 7:44 PM EST 10/01/2024 7:44 PM EST Gissell Velazco MD POINT OF CARE TEST ORDERABLES Performing Organization Address City/[facility]/ZIP Co de Phone Number [facility] [place] [place] [address] * POC, GLUCOSE (10/01/2024 4:22 PM EST) Glucometer, POC 190 65 - 199 mg/dL 10/01/2024 4:[address] [facility] Comment:Supplemental ranges: <140 mg/dL before meals <180 mg/dL all other times of the day. Blood CAPILLARY BLOOD / Unknown 10/01/2024 4:22 PM EST 10/01/2024 4:23 PM EST Gissell Velazco MD POINT OF CARE TEST ORDERABLES [facility] [place] [address] * POC, GLUCOSE (10/01/2024 12:02 PM EST) Glucometer, POC 137 65 - 199 mg/dL 10/01/2024 12:[address] [facility] Comment:Supplemental ranges: <140 mg/dL before meals <180 mg/dL all other times of the day. Blood CAPILLARY BLOOD / Unknown 10/01/2024 12:02 PM EST 10/01/2024 12:03 PM EST Gissell Velazco MD POINT OF CARE TEST ORDERABLES [facility] [place] [address] * POC, GLUCOSE (10/01/2024 8:01 AM EST) Glucometer, POC 160 65 - 199 mg/dL 10/01/2024 8:[address] [facility] Comment:Supplemental ranges: <140 mg/dL before meals <180 mg/dL all other times of the day. Blood CAPILLARY BLOOD / Unknown 10/01/2024 8:01 AM EST 10/01/2024 8:02 AM EST Gissell Velazco MD POINT OF CARE TEST ORDERABLES Performing Organization Address City/[facility] Co de Phone Number [facility] [place] [address] * POC, GLUCOSE (10/01/2024 3:39 AM EST) Glucometer, POC 162 65 - 199 mg/dL 10/01/2024 3:[address] [facility] Comment:Supplemental ranges: <140 mg/dL before meals <180 mg/dL all other times of the day. Blood CAPILLARY BLOOD / Unknown 10/01/2024 3:39 AM EST 10/01/2024 3:39 AM EST Gissell Velazco MD POINT OF CARE TEST ORDERABLES Performing Organization Address City/[facility]/ZIP Co de Phone Number [facility] [place] [address] * (ABNORMAL) Phosphorus (10/01/2024 12:21 AM EST) Pathologist [facility] Phosphorus 2.4(L) 2.5 - 4.5 mg/dL 10/01/2024 1:03 AM [facility] Blood VENOUS BLOOD SPECIMEN / Unknown Venipuncture / Unknown 10/01/2024 12:21 AM EST 10/01/2024 12:33 AM EST Librado Patel MD CHEMISTRY ORDERABLES Performing Organization Address City/[facility]/ZIP Co de Phone Number [facility] [place] [place] [address] * Magnesium (10/01/2024 12:21 AM EST) [facility] Magnesium 0.84 0.69 - 1.07 mMol/L 10/01/2024 1:03 AM [facility] Blood VENOUS BLOOD SPECIMEN / Unknown Venipuncture / Unknown 10/01/2024 12:21 AM EST 10/01/2024 12:33 AM EST Librado Patel MD CHEMISTRY ORDERABLES [facility] [place] [address] * (ABNORMAL) Basic Metabolic Panel (10/01/2024 12:21 AM EST) Pathologist [facility] Glucose 124 65 - 199 mg/dL 10/01/2024 1:03 AM [facility] Comment:Glucose Concentratio n >=200 mg/dL plus symptoms is consistent with Diabetes Mellitus. Blood Urea Nitrogen 23(H) 8 - 18 mg/dL 10/01/2024 1:03 AM [facility] Creatinine 0.43(L) 0.70 - 1.20 mg/dL 10/01/2024 1:03 AM [facility] Sodium 141 135 - 145 mMol/L 10/01/2024 1:03 AM [facility] Potassium 3.2(L) 3.5 - 5.0 mMol/L 10/01/2024 1:03 AM [facility] Chloride 105 98 - 107 mMol/L 10/01/2024 1:03 AM [facility] Carbon Dioxide 28 22 - 31 mMol/L 10/01/2024 1:03 AM [facility] Anion Gap 8 5 - 15 mMol/L 10/01/2024 1:03 AM [facility] Calcium 8.7 8.5 - 10.5 mg/dL 10/01/2024 1:03 AM [facility] Est Glomerular Filtration Rate - Female 103 mL/min/1. 73 m?? 10/01/2024 1:03 AM [facility] Comment: This patient's estimated GFR [...] AM EST Librado Patel MD CHEMISTRY ORDERABLES [facility] [place] [address] * (ABNORMAL) CBC (with Diff) (10/01/2024 12:21 AM EST) White Blood Cell 22.24(H) 4.00 - 9.50 x10(3)/mc L 10/01/2024 12:[address] [facility] Red Blood Cell 3.22(L) 4.00 - 5.21 x10(6)/mc L 10/01/2024 12:37 AM [facility] Hemoglobin 9.9(L) 11.7 - 15.5 g/dL 10/01/2024 12:37 AM [facility] Hematocrit 29.2(L) 35.7 - 45.8 % 10/01/2024 12:37 AM [facility] Mean Cell Volume 90.7 82.6 - 94.4 fL 10/01/2024 12:37 AM [facility] Mean Cell Hemoglobin 30.7 27.1 - 32.0 pg 10/01/2024 12:37 AM [facility] Mean Cell Hemoglobin Concentration 33.9 31.7 - 35.0 g/dL 10/01/2024 12:37 AM [facility] Platelet 370(H) 145 - 357 x10(3)/mc L 10/01/2024 12:37 AM [facility] Mean Platelet Volume 9.8 7.6 - 12.9 fL 10/01/2024 12:37 AM [facility] RDW Standard Deviation 44.3 37.0 - 46.0 fL 10/01/2024 12:37 AM [facility] RDW coefficient of variation 13.7 11.5 - 14.1 % 10/01/2024 12:37 AM [facility] NRBC% auto 0.0 % 10/01/2024 12:37 AM [facility] NRBC Absolute <0.01 <0.01 x10(3)/mc L 10/01/2024 12:37 AM [facility] Neutrophil % 90.0 % 10/01/2024 12:37 AM [facility] Neutrophil Absolute (ANC) - Automated 20.01(H) 1.70 - 6.10 x10(3)/mc L 10/01/2024 12:37 AM [facility] Lymph % 2.2 % 10/01/2024 12:37 AM [facility] Lymph Absolute 0.50(L) 0.90 - 3.20 x10(3)/mc L 10/01/2024 12:37 AM [facility] Monocyte % 5.8 % 10/01/2024 12:37 AM [facility] Monocyte Absolute 1.29(H) 0.30 - 0.90 x10(3)/mc L 10/01/2024 12:37 AM [facility] Eos % 0.0 % 10/01/2024 12:37 AM [facility] Eos Absolute <0.04 0.00 - 0.40 x10(3)/mc L 10/01/2024 12:37 AM [facility] Basophil % 0.1 % 10/01/2024 12:37 AM [facility] Baso Absolute <0.04 0.00 - 0.10 x10(3)/mc L 10/01/2024 12:37 AM [facility] Immature Gran % 1.9 % 12:37 AM [facility] Immature Gran Absolute 0.42(H) 0.00 - 0.04 x10(3)/mc L 10/01/2024 12:37 AM [facility] Blood VENOUS BLOOD SPECIMEN / Unknown Venipuncture / Unknown 10/01/2024 12:21 AM EST 10/01/2024 12:33 AM EST Librado Patel MD HEMATOLOGY ORDERABLE S [facility] [place] [address] * (ABNORMAL) POC, GLUCOSE (09/30/2024 8:15 PM EST) Glucometer, POC 233(H) 65 - 199 mg/dL 09/30/2024 8:[address] [facility] Comment:Supplemental ranges: <140 mg/dL before meals <180 mg/dL all other times of the day. Blood CAPILLARY BLOOD / Unknown 09/30/2024 8:15 PM EST 09/30/2024 8:16 PM EST Gissell Velazco MD POINT OF CARE TEST ORDERABLES Performing Organization Address City/[facility] Co de Phone Number [facility] [place] [address] * (ABNORMAL) POC, GLUCOSE (09/30/2024 4:36 PM EST) Glucometer, POC 207(H) 65 - 199 mg/dL 09/30/2024 4:[address] [facility] Comment:Supplemental ranges: <140 mg/dL before meals <180 mg/dL all other times of the day. Blood CAPILLARY BLOOD / Unknown 09/30/2024 4:36 PM EST 09/30/2024 4:39 PM EST Gissell Velazco MD POINT OF CARE TEST ORDERABLES Performing Organization Address [facility] Co de Phone Number [facility] [place] [address] * POC, GLUCOSE (09/30/2024 11:53 AM EST) Glucometer, POC 196 65 - 199 mg/dL 09/30/2024 11:[address] [facility] Comment:Supplemental ranges: <140 mg/dL before meals <180 mg/dL all other times of the day. Blood CAPILLARY BLOOD / Unknown 09/30/2024 11:53 AM EST 09/30/2024 11:54 AM EST Gissell Velazco MD POINT OF CARE TEST ORDERABLES Performing Organization Address City/[facility] Co de Phone Number [facility] [place] [address] * (ABNORMAL) POC, GLUCOSE (09/30/2024 9:05 AM EST) Glucometer, POC 229(H) 65 - 199 mg/dL 09/30/2024 9:[address] [facility] Comment:Supplemental ranges: <140 mg/dL before meals <180 mg/dL all other times of the day. Blood CAPILLARY BLOOD / Unknown 09/30/2024 9:05 AM EST 09/30/2024 9:05 AM EST Gissell Velazco MD POINT OF CARE TEST ORDERABLES Performing Organization Address City/[facility]/ZIP Co de Phone Number [facility] [place] [place] [address] * POC, GLUCOSE (09/30/2024 4:53 AM EST) Glucometer, POC 165 65 - 199 mg/dL 09/30/2024 4:[address] [facility] Comment:Supplemental ranges: <140 mg/dL before meals <180 mg/dL all other times of the day. Blood CAPILLARY BLOOD / Unknown 09/30/2024 4:53 AM EST 09/30/2024 4:54 AM EST Gissell Velazco MD POINT OF CARE TEST ORDERABLES Performing Organization Address [facility] Co de Phone Number [facility] [place] [address] * Phosphorus (09/30/2024 1:44 AM EST) Phosphorus 2.9 2.5 - 4.5 mg/dL 09/30/2024 2:[address] [facility] Blood VENOUS BLOOD SPECIMEN / Unknown Venipuncture / Unknown 09/30/2024 1:44 AM EST 09/30/2024 1:52 AM EST Librado Patel MD CHEMISTRY ORDERABLES Performing Organization Address City/[facility]/ZIP Co de Phone Number [facility] [place] [place] [address] * Magnesium (09/30/2024 1:44 AM EST) Magnesium 0.79 0.69 - 1.07 mMol/L 09/30/2024 2:[address] [facility] Blood VENOUS BLOOD SPECIMEN / Unknown Venipuncture / Unknown 09/30/2024 1:44 AM EST 09/30/2024 1:52 AM EST Librado Patel MD CHEMISTRY ORDERABLES [facility] [place] [address] * (ABNORMAL) Basic Metabolic Panel (09/30/2024 1:44 AM EST) Glucose 141 65 - 199 mg/dL 09/30/2024 2:22 AM [facility] Comment:Glucose Concentratio n >=200 mg/dL plus symptoms is consistent with Diabetes Mellitus. Blood Urea Nitrogen 16 8 - 18 mg/dL 09/30/2024 2:22 AM [facility] Creatinine 0.47(L) 0.70 - 1.20 mg/dL 09/30/2024 2:22 AM [facility] Sodium 139 135 - 145 mMol/L 09/30/2024 2:22 AM [facility] Potassium 3.9 3.5 - 5.0 mMol/L 09/30/2024 2:22 AM [facility] Chloride 104 98 - 107 mMol/L 09/30/2024 2:22 AM [facility] Carbon Dioxide 25 22 - 31 mMol/L 09/30/2024 2:22 AM [facility] Anion Gap 10 5 - 15 mMol/L 09/30/2024 2:22 AM [facility] Calcium 8.4(L) 8.5 - 10.5 mg/dL 09/30/2024 2:22 AM [facility] Est Glomerular Filtration Rate - Female 101 mL/min/1. 73 m?? 09/30/2024 2:22 AM [facility] Comment: This patient's estimated GFR [...] Patel MD CHEMISTRY ORDERABLES Performing Organization Address City/State/[facility] Co de Phone Number [facility] [place] [address] * (ABNORMAL) CBC (with Diff) (09/30/2024 1:44 AM EST) White Blood Cell 25.89(H) 4.00 - 9.50 x10(3)/mc L 09/30/2024 1:[address] [facility] Red Blood Cell 3.34(L) 4.00 - 5.21 x10(6)/mc L 09/30/2024 1:[address] [facility] Hemoglobin 10.1(L) 11.7 - 15.5 g/dL 09/30/2024 1:59 AM [facility] Hematocrit 31.0(L) 35.7 - 45.8 % 09/30/2024 1:[address] [facility] Mean Cell Volume 92.8 82.6 - 94.4 fL 09/30/2024 1:59 AM [facility] Mean Cell Hemoglobin 30.2 27.1 - 32.0 pg 09/30/2024 1:59 AM [facility] Mean Cell Hemoglobin Concentration 32.6 31.7 - 35.0 g/dL 09/30/2024 1:59 AM [facility] Platelet 376(H) 145 - 357 x10(3)/mc L 09/30/2024 1:59 AM [facility] Mean Platelet Volume 9.7 7.6 - 12.9 fL 09/30/2024 1:59 AM [facility] RDW Standard Deviation 46.5(H) 37.0 - 46.0 fL 09/30/2024 1:59 AM [facility] RDW coefficient of variation 14.2(H) 11.5 - 14.1 % 09/30/2024 1:59 AM [facility] NRBC% auto 0.0 % 09/30/2024 1:59 AM [facility] NRBC Absolute <0.01 <0.01 x10(3)/mc L 09/30/2024 1:59 AM [facility] Neutrophil % 85.9 % 09/30/2024 1:59 AM [facility] Neutrophil Absolute (ANC) - Automated 22.26(H) 1.70 - 6.10 x10(3)/mc L 09/30/2024 1:59 AM [facility] Lymph % 5.1 % 09/30/2024 1:59 AM [facility] Lymph Absolute 1.33 0.90 - 3.20 x10(3)/mc L 09/30/2024 1:59 AM [facility] Monocyte % 5.6 % 09/30/2024 1:59 AM [facility] Monocyte Absolute 1.44(H) 0.30 - 0.90 x10(3)/mc L 09/30/2024 1:59 AM [facility] Eos % 1.2 % 09/30/2024 1:59 AM [facility] Eos Absolute 0.30 0.00 - 0.40 x10(3)/mc L 09/30/2024 1:59 AM [facility] Basophil % 0.2 % 09/30/2024 1:[address] [facility] Baso Absolute 0.05 0.00 - 0.10 x10(3)/mc L 09/30/2024 1:[address] [facility] Immature Gran % 2.0 % 1:59 AM [facility] Immature Gran Absolute 0.51(H) 0.00 - 0.04 x10(3)/mc L 09/30/2024 1:[address] [facility] Blood VENOUS BLOOD SPECIMEN / Unknown Venipuncture / Unknown 09/30/2024 1:44 AM EST 09/30/2024 1:52 AM EST Librado Patel MD HEMATOLOGY ORDERABLE S [facility] [place] [address] * POC, GLUCOSE (09/29/2024 11:37 PM EST) Glucometer, POC 133 65 - 199 mg/dL 09/29/2024 11:[address] [facility] Comment:Supplemental ranges: <140 mg/dL before meals <180 mg/dL all other times of the day. Blood CAPILLARY BLOOD / Unknown 09/29/2024 11:37 PM EST 09/29/2024 11:38 PM EST Gissell Velazco MD POINT OF CARE TEST ORDERABLES [facility] [place] [address] * POC, GLUCOSE (09/29/2024 8:09 PM EST) Glucometer, POC 109 65 - 199 mg/dL 09/29/2024 8:[address] [facility] Comment:Supplemental ranges: <140 mg/dL before meals <180 mg/dL all other times of the day. Blood CAPILLARY BLOOD / Unknown 09/29/2024 8:09 PM EST 09/29/2024 8:10 PM EST Gissell Velazco MD POINT OF CARE TEST ORDERABLES Performing Organization Address City/[facility]/ZIP Co de Phone Number [facility] [place] [address] * POC, GLUCOSE (09/29/2024 6:14 PM EST) Glucometer, POC 121 65 - 199 mg/dL 09/29/2024 6:[address] [facility] Comment:Supplemental ranges: <140 mg/dL before meals <180 mg/dL all other times of the day. Blood CAPILLARY BLOOD / Unknown 09/29/2024 6:14 PM EST 09/29/2024 6:15 PM EST Gissell Velazco MD POINT OF CARE TEST ORDERABLES Performing Organization Address City/[facility] Co de Phone Number [facility] [place] [phone] * XR Chest One View (09/29/2024 1:13 PM EST) WORKSTATION ID [id number] DH RAD Anatomical Region Laterality Modality Chest [...] who have questions please contact the health customer care agent that requested your imaging first. ? Electronically signed by: Marvin Decker DO, [facility] ([phone]), at 09/30/2024 12:49 AM Narrative 09/30/2024 12:49 [...] patients who have questions please contactthe health customer care agent that requested your imaging first. Gissell Velazco MD IMG DX ORDERABLES * POC, GLUCOSE (09/29/2024 11:29 AM EST) Glucometer, POC 135 65 - 199 mg/dL 09/29/2024 11:[address] [facility] Comment:Supplemental ranges: <140 mg/dL before meals <180 mg/dL all other times of the day. Blood CAPILLARY BLOOD / Unknown 09/29/2024 11:29 AM EST 09/29/2024 11:30 AM EST Gissell Velazco MD POINT OF CARE TEST ORDERABLES Performing Organization Address City/[facility]/ZIP Co de Phone Number [facility] [place] [address] * POC, GLUCOSE (09/29/2024 8:37 AM EST) Glucometer, POC 126 65 - 199 mg/dL 09/29/2024 8:[address] [facility] Comment:Supplemental ranges: <140 mg/dL before meals <180 mg/dL all other times of the day. Blood CAPILLARY BLOOD / Unknown 09/29/2024 8:37 AM EST 09/29/2024 8:39 AM EST Gissell Velazco MD POINT OF CARE TEST ORDERABLES [facility] [place] [address] * POC, GLUCOSE (09/29/2024 4:47 AM EST) Glucometer, POC 145 65 - 199 mg/dL 09/29/2024 4:[address] [facility] Comment:Supplemental ranges: <140 mg/dL before meals <180 mg/dL all other times of the day. Blood CAPILLARY BLOOD / Unknown 09/29/2024 4:47 AM EST 09/29/2024 4:48 AM EST Dinesh Bauer MD POINT OF CARE TEST ORDERABLES [facility] [place] [address] * Magnesium (09/29/2024 1:09 AM EST) Magnesium 0.77 0.69 - 1.07 mMol/L 09/29/2024 1:51 AM [facility] Blood VENOUS BLOOD SPECIMEN / Unknown Venipuncture / Unknown 09/29/2024 1:09 AM EST 09/29/2024 1:27 AM EST Librado Patel MD CHEMISTRY ORDERABLES Performing Organization Address City/[facility]/ZIP Co de Phone Number [facility] [place] [address] * (ABNORMAL) CBC (with Diff) (09/29/2024 1:09 AM EST) Pathologist [facility] White Blood Cell 26.40(H) 4.00 - 9.50 x10(3)/mc L 09/29/2024 1:36 AM [facility] Red Blood Cell 3.36(L) 4.00 - 5.21 x10(6)/mc L 09/29/2024 1:36 AM [facility] Hemoglobin 10.0(L) 11.7 - 15.5 g/dL 09/29/2024 1:36 AM [facility] Hematocrit 30.9(L) 35.7 - 45.8 % 09/29/2024 1:36 AM [facility] [facility] Mean Cell Volume 92.0 82.6 - 94.4 fL 09/29/2024 1:36 AM [facility] Mean Cell Hemoglobin 29.8 27.1 - 32.0 pg 09/29/2024 1:36 AM [facility] Mean Cell Hemoglobin Concentration 32.4 31.7 - 35.0 g/dL 09/29/2024 1:36 AM [facility] Platelet 397(H) 145 - 357 x10(3)/mc L 09/29/2024 1:36 AM [facility] Mean Platelet Volume 10.0 7.6 - 12.9 fL 09/29/2024 1:36 AM [facility] RDW Standard Deviation 45.3 37.0 - 46.0 fL 09/29/2024 1:36 AM [facility] RDW coefficient of variation 14.0 11.5 - 14.1 % 09/29/2024 1:36 AM [facility] NRBC% auto 0.0 % 09/29/2024 1:36 AM [facility] NRBC Absolute <0.01 <0.01 x10(3)/mc L 09/29/2024 1:36 AM [facility] Neutrophil % 86.2 % 09/29/2024 1:36 AM [facility] Neutrophil Absolute (ANC) - Automated 22.77(H) 1.70 - 6.10 x10(3)/mc L 09/29/2024 1:36 AM [facility] Lymph % 5.9 % 09/29/2024 1:36 AM [facility] Lymph Absolute 1.56 0.90 - 3.20 x10(3)/mc L 09/29/2024 1:36 AM [facility] Monocyte % 4.6 % 09/29/2024 1:36 AM [facility] Monocyte Absolute 1.21(H) 0.30 - 0.90 x10(3)/mc L 09/29/2024 1:36 AM [facility] Eos % 0.8 % 09/29/2024 1:36 AM [facility] Eos Absolute 0.21 0.00 - 0.40 x10(3)/mc L 09/29/2024 1:36 AM [facility] Basophil % 0.2 % 09/29/2024 1:[address] [facility] Baso Absolute 0.04 0.00 - 0.10 x10(3)/mc L 09/29/2024 1:[address] [facility] Immature Gran % 2.3 % 1:36 AM [facility] Immature Gran Absolute 0.61(H) 0.00 - 0.04 x10(3)/mc L 09/29/2024 1:[address] [facility] Blood VENOUS BLOOD SPECIMEN / Unknown Venipuncture / Unknown 09/29/2024 1:09 AM EST 09/29/2024 1:27 AM EST Librado Patel MD HEMATOLOGY ORDERABLE S [facility] [place] [address] * POC, GLUCOSE (09/29/2024 12:53 AM EST) Glucometer, POC 146 65 - 199 mg/dL 09/29/2024 12:[address] [facility] Comment:Supplemental ranges: <140 mg/dL before meals <180 mg/dL all other times of the day. Blood CAPILLARY BLOOD / Unknown 09/29/2024 12:53 AM EST 09/29/2024 12:53 AM EST Dinesh Bauer MD POINT OF CARE TEST ORDERABLES [facility] [place] [address] * POC, GLUCOSE (09/28/2024 10:25 PM EST) Glucometer, POC 131 65 - 199 mg/dL 09/28/2024 10:[address] [facility] Comment:Supplemental ranges: <140 mg/dL before meals <180 mg/dL all other times of the day. Blood CAPILLARY BLOOD / Unknown 09/28/2024 10:25 PM EST 09/28/2024 10:26 PM EST Dinesh Bauer MD POINT OF CARE TEST ORDERABLES [facility] [place] [address] * XR Chest One View (09/28/2024 7:58 PM EST) WORKSTATION ID [id number] RAD Anatomical Region Laterality Modality Chest N/A [...] who have questions please contact the health customer care agent that requested your imaging first. ? Narrative [...] and has its distal tip below the [id number]. A right-sided PICC has its distal tip [...] and has its distal tip below the [id number]. A right-sided PICC has its distal tip [...] patients who have questions please contactthe health customer care agent that requested your imaging first. Dinesh Bauer MD IMG DX ORDERABLES * POC, GLUCOSE (09/28/2024 7:50 PM EST) [facility] Glucometer, POC 130 65 - 199 mg/dL 09/28/2024 7:[address] [facility] Comment:Supplemental ranges: <140 mg/dL before meals <180 mg/dL all other times of the day. Blood CAPILLARY BLOOD / Unknown 09/28/2024 7:50 PM EST 09/28/2024 7:51 PM EST Dinesh Bauer MD POINT OF CARE TEST ORDERABLES [facility] [place] [address] * POC, GLUCOSE (09/28/2024 3:52 PM EST) Glucometer, POC 137 65 - 199 mg/dL 09/28/2024 3:[address] [facility] Comment:Supplemental ranges: <140 mg/dL before meals <180 mg/dL all other times of the day. Blood CAPILLARY BLOOD / Unknown 09/28/2024 3:52 PM EST 09/28/2024 3:53 PM EST Dinesh Bauer MD POINT OF CARE TEST ORDERABLES Performing Organization Address [facility] de Phone Number [facility] [place] [address] * POC, GLUCOSE (09/28/2024 12:19 PM EST) Glucometer, POC 163 65 - 199 mg/dL 09/28/2024 12:[address] [facility] Comment:Supplemental ranges: <140 mg/dL before meals <180 mg/dL all other times of the day. Blood CAPILLARY BLOOD / Unknown 09/28/2024 12:19 PM EST 09/28/2024 12:20 PM EST Dinesh Bauer MD POINT OF CARE TEST ORDERABLES Performing Organization Address City/[facility] Co de Phone Number [facility] [place] [address] * POC, GLUCOSE (09/28/2024 7:54 AM EST) Glucometer, POC 161 65 - 199 mg/dL 09/28/2024 7:[address] [facility] Comment:Supplemental ranges: <140 mg/dL before meals <180 mg/dL all other times of the day. Blood CAPILLARY BLOOD / Unknown 09/28/2024 7:54 AM EST 09/28/2024 7:54 AM EST Librado Patel MD POINT OF CARE TEST O RDERABLES Performing Organization Address City/[facility]/ZIP Co de Phone Number [facility] [place] [address] * (ABNORMAL) Troponin-T, High Sensitivity 3 Hour (09/28/2024 6:37 AM EST) Troponin-T, High Sensitivity 16(H) <=14 ng/L 09/28/2024 7:[address] [facility] Comment: This patient's troponin T [...] troponin value can be found in the [facility] Test Catalog Troponin - https://[facility]-.testcatalog.org/catalogs/565/files/10138 Reference: [place] Definition of Myocardial Infarction. Journal of the [place] [employer] 2018;72:1343-5047 Troponin-T, HS 3 hr delta 09/28/2024 7:[address] [facility] Comment:Delta troponin value not calculated, sample collected outside of delta calculation time limit. Blood VENOUS BLOOD SPECIMEN / Unknown Venipuncture / Unknown 09/28/2024 6:37 AM EST 09/28/2024 6:53 AM EST Teresa Multani APRN CHEMISTRY ORDERABL ES [facility] [place] [address] * (ABNORMAL) Troponin-T, High Sensitivity 1 Hour (09/28/2024 5:00 AM EST) Troponin-T, High Sensitivity 16(H) <=14 ng/L 09/28/2024 5:[address] [facility] Comment: This patient's troponin T [...] troponin value can be found in the [facility] Test Catalog Troponin - https://[facility]-.testcatalog.org/catalogs/565/files/48804 Reference: [place] Definition of Myocardial Infarction. Journal of the [place] [employer] 2018;72:3890-7810 Troponin-T, HS 1 hr delta 1 ng/L 09/28/2024 5:[address] [facility] Comment:The 1 hour Troponin T delta value is the absolute difference between the Troponin T concentrations of the initial and subsequent sample collected between 45 - 120 minutes following the initial collection. Blood BLOOD SAMPLE TAKEN FROM CENTRAL LINE / Unknown Venipuncture / Unknown 09/28/2024 5:00 AM EST 09/28/2024 5:08 AM EST Teresa Multani APRN CHEMISTRY ORDERABL ES [facility] [place] [address] * POC, GLUCOSE (09/28/2024 4:16 AM EST) Glucometer, POC 174 65 - 199 mg/dL 09/28/2024 4:[address] [facility] Comment:Supplemental ranges: <140 mg/dL before meals <180 mg/dL all other times of the day. Blood CAPILLARY BLOOD / Unknown 09/28/2024 4:16 AM EST 09/28/2024 4:17 AM EST Librado Patel MD POINT OF CARE TEST O RDERABLES [facility] [place] [address] * XR Chest One View (09/28/2024 4:06 AM EST) WORKSTATION ID [id number] RAD Anatomical Region Laterality Modality Chest N/A [...] who have questions please contact the health customer care agent that requested your imaging first. ? Electronically signed by: Marvin Decker DO [facility] ([phone]), at 09/28/2024 4:12 AM Narrative 09/28/2024 4:12 AM EST EXAMINATION: XR [...] patients who have questions please contactthe health customer care agent that requested your imaging first. Electronically signed by: Marvin Decker DO, [facility]([phone]), at 09/28/2024 4:12 AM Teresa Multani GUEST ROOM INSPECTOR IMG DX ORDERABLES * EKG 12 Lead (09/28/2024 3:59 AM EST) Ventricular rate 104 BPM MUSE SYSTEM Atrial Rate 104 BPM MUSE SYSTEM P-R Interval 138 ms MUSE SYSTEM QRS Duration 64 ms MUSE SYSTEM Q-T Interval 342 ms MUSE SYSTEM QTC Calculated (Bezet) 449 ms MUSE SYSTEM Calculated P [place] 44 degrees MUSE SYSTEM Calculated R [place] -22 degrees MUSE SYSTEM Calculated T [place] 34 degrees MUSE SYSTEM INTERPRETATION Sinus tachycardia [...] (Bezet) 449 ms MUSE SYSTEM Calculated P [place] 44 degrees MUSE SYSTEM Calculated R [place] -22 degrees MUSE SYSTEM Calculated T [place] 34 degrees MUSE SYSTEM INTERPRETATION Sinus tachycardia with Premature atrial complexes Low voltage QRS Cannot rule out Anterior infarct , age undetermined Abnormal ECG When compared with ECG of 16-SEP-2024 15:33, Premature atrial complexes are now Present Confirmed by fellow Johanna Beatty ([id number]) on 09/29/2024 10:55:55 AM Confirmed by MD VERMA ARMIN ([id number]) on 09/29/2024 8:30:41 PM MUSE SYSTEM 09/28/2024 3:59 AM EST 09/29/2024 8:30 PM EST Librado Patel MD ECG ORDERABLES MUSE SYSTEM * (ABNORMAL) Scan, Peripheral Blood (09/28/2024 3:58 AM EST) Pathologist [facility] RBC Morphology Abnormal 09/28/2024 4:[address] [facility] Platelet Estimate Increased(A) Normal 09/28 4:[address] [facility] Polychromasia Present 09/28/2024 4:[address] [facility] WBC MORPHOLOGY See Comment(A) (none) 09/28/2024 4:[address] [facility] Comment:Vacuolated Grans Blood VENOUS BLOOD SPECIMEN / Unknown Venipuncture / Unknown 09/28/2024 3:58 AM EST 09/28/2024 4:03 AM EST Librado Patel MD HEMATOLOGY ORDERABLE S [facility] [place] [address] * (ABNORMAL) Troponin-T, High Sensitivity (09/28/2024 3:58 AM EST) Troponin-T, High Sensitivity Initial 15(H) <=14 ng/L 09/28/2024 4:[address] [facility] Comment: This patient's troponin T [...] troponin value can be found in the [facility] Test Catalog Troponin - https://[email or web address].testcatalog.org/catalogs/565/files/22506 Reference: [place] Definition of Myocardial Infarction. Journal of the [place] [employer] 2018;72:1908-0501 Blood VENOUS BLOOD SPECIMEN / Unknown Venipuncture / Unknown 09/28/2024 3:58 AM EST 09/28/2024 4:03 AM EST Teresa Multani APRN CHEMISTRY ORDERABL ES [facility] [place] [address] * (ABNORMAL) CBC (with Diff) (09/28/2024 3:58 AM EST) White Blood Cell 35.37(HHH ) 4.00 - 9.50 x10(3)/mc L 09/28/2024 4:[address] [facility] Red Blood Cell 3.70(L) 4.00 - 5.21 x10(6)/mc L 09/28/2024 4:[address] [facility] Hemoglobin 11.0(L) 11.7 - 15.5 g/dL 09/28/2024 4:[address] [facility] Hematocrit 34.0(L) 35.7 - 45.8 % 09/28/2024 4:58 AM [facility] Mean Cell Volume 91.9 82.6 - 94.4 fL 09/28/2024 4:58 AM [facility] Mean Cell Hemoglobin 29.7 27.1 - 32.0 pg 09/28/2024 4:58 AM [facility] Mean Cell Hemoglobin Concentration 32.4 31.7 - 35.0 g/dL 09/28/2024 4:58 AM [facility] Platelet 443(H) 145 - 357 x10(3)/mc L 09/28/2024 4:58 AM [facility] Mean Platelet Volume 10.2 7.6 - 12.9 fL 09/28/2024 4:58 AM [facility] RDW Standard Deviation 43.8 37.0 - 46.0 fL 09/28/2024 4:58 AM [facility] RDW coefficient of variation 13.7 11.5 - 14.1 % 09/28/2024 4:58 AM [facility] NRBC% auto 0.0 % 09/28/2024 4:58 AM [facility] NRBC Absolute <0.01 <0.01 x10(3)/mc L 09/28/2024 4:58 AM [facility] Neutrophil % 87.0 % 09/28/2024 4:58 AM [facility] Comment:This is an appended report. These results have been appended to a previously preliminary verified report. Neutrophil Absolute (ANC) - Automated 30.79(H) 1.70 - 6.10 x10(3)/mc L 09/28/2024 4:58 AM [facility] Comment:This is an appended report. These results have been appended to a previously preliminary verified report. Lymph % 4.2 % 09/28/2024 4:58 AM [facility] Comment:This is an appended report. These results have been appended to a previously preliminary verified report. Lymph Absolute 1.50 0.90 - 3.20 x10(3)/mc L 09/28/2024 4:58 AM [facility] Comment:This is an appended report. These results have been appended to a previously preliminary verified report. Monocyte % 4.5 % 09/28/2024 4:58 AM [facility] Comment:This is an appended report. These results have been appended to a previously preliminary verified report. Monocyte Absolute 1.60(H) 0.30 - 0.90 x10(3)/mc L 09/28/2024 4:58 AM [facility] Comment:This is an appended report. These results have been appended to a previously preliminary verified report. Eos % 0.5 % 09/28/2024 4:58 AM [facility] Comment:This is an appended report. These results have been appended to a previously preliminary verified report. Eos Absolute 0.16 0.00 - 0.40 x10(3)/mc L 09/28/2024 4:58 AM [facility] Comment:This is an appended report. These results have been appended to a previously preliminary verified report. Basophil % 0.3 % 09/28/2024 4:58 AM [facility] Comment:This is an appended report. These results have been appended to a previously preliminary verified report. Baso Absolute 0.09 0.00 - 0.10 x10(3)/mc L 09/28/2024 4:58 AM [facility] Comment:This is an appended report. These results have been appended to a previously preliminary verified report. Immature Gran % 3.5 % 4:58 AM [facility] Comment:This is an appended report. These results have been appended to a previously preliminary verified report. Immature Gran Absolute 1.23(H) 0.00 - 0.04 x10(3)/mc L 09/28/2024 4:58 AM [facility] Comment:This is an appended report. These results have been appended to a previously preliminary verified report. Blood VENOUS BLOOD SPECIMEN / Unknown Venipuncture / Unknown 09/28/2024 3:58 AM EST 09/28/2024 4:03 AM EST Librado Patel MD HEMATOLOGY ORDERABLE S Performing Organization Address City/[facility]/ZIP Co de Phone Number [facility] [place] [address] * Phosphorus (09/28/2024 3:58 AM EST) Phosphorus 2.7 2.5 - 4.5 mg/dL 09/28/2024 4:[address] [facility] Blood VENOUS BLOOD SPECIMEN / Unknown Venipuncture / Unknown 09/28/2024 3:58 AM EST 09/28/2024 4:03 AM EST Librado Patel MD CHEMISTRY ORDERABLES Performing Organization Address [facility]/ZIP Co de Phone Number [facility] [place] [address] * Magnesium (09/28/2024 3:58 AM EST) Magnesium 0.82 0.69 - 1.07 mMol/L 09/28/2024 4:[address] [facility] Blood VENOUS BLOOD SPECIMEN / Unknown Venipuncture / Unknown 09/28/2024 3:58 AM EST 09/28/2024 4:03 AM EST Librado Patel MD CHEMISTRY ORDERABLES Performing Organization Address City/[facility]/ZIP Co de Phone Number [facility] [place] [address] * (ABNORMAL) Basic Metabolic Panel (09/28/2024 3:58 AM EST) Glucose 161 65 - 199 mg/dL 09/28/2024 4:[address] [facility] Comment:Glucose Concentratio n >=200 mg/dL plus symptoms is consistent with Diabetes Mellitus. Blood Urea Nitrogen 21(H) 8 - 18 mg/dL 09/28/2024 4:35 AM [facility] Creatinine 0.49(L) 0.70 - 1.20 mg/dL 09/28/2024 4:35 AM [facility] Sodium 138 135 - 145 mMol/L 09/28/2024 4:35 AM [facility] Potassium 4.0 3.5 - 5.0 mMol/L 09/28/2024 4:35 AM [facility] Chloride 106 98 - 107 mMol/L 09/28/2024 4:35 AM [facility] Carbon Dioxide 22 22 - 31 mMol/L 09/28/2024 4:35 AM [facility] Anion Gap 10 5 - 15 mMol/L 09/28/2024 4:35 AM [facility] Calcium 8.3(L) 8.5 - 10.5 mg/dL 09/28/2024 4:35 AM [facility] Est Glomerular Filtration Rate - Female 100 mL/min/1. 73 m?? 09/28/2024 4:35 AM [facility] Comment: This patient's estimated GFR [...] AM EST Librado Patel MD CHEMISTRY ORDERABLES [facility] [place] [address] * POC, GLUCOSE (09/27/2024 11:39 PM EST) Glucometer, POC 125 65 - 199 mg/dL 09/27/2024 11:[address] [facility] Comment:Supplemental ranges: <140 mg/dL before meals <180 mg/dL all other times of the day. Blood CAPILLARY BLOOD / Unknown 09/27/2024 11:39 PM EST 09/27/2024 11:40 PM EST Librado Patel MD POINT OF CARE TEST O RDERABLES Performing Organization Address City/[facility]/[place] [address] * POC, GLUCOSE (09/27/2024 7:52 PM EST) Glucometer, POC 144 65 - 199 mg/dL 09/27/2024 7:[address] [facility] Comment:Supplemental ranges: <140 mg/dL before meals <180 mg/dL all other times of the day. Blood CAPILLARY BLOOD / Unknown 09/27/2024 7:52 PM EST 09/27/2024 7:53 PM EST Librado Patel MD POINT OF CARE TEST O RDKALE Performing Organization Address City/[facility]/[place] [address] * Potassium (09/27/2024 4:46 PM EST) Potassium 4.0 3.5 - 5.0 mMol/L 09/27/2024 5:[address] [facility] Blood VENOUS BLOOD SPECIMEN / Unknown Venipuncture / Unknown 09/27/2024 4:46 PM EST 09/27/2024 5:00 PM EST Librado Patel MD CHEMISTRY ORDERABLES [facility] [place] [address] * POC, GLUCOSE (09/27/2024 4:38 PM EST) Glucometer, POC 123 65 - 199 mg/dL 09/27/2024 4:[address] [facility] Comment:Supplemental ranges: <140 mg/dL before meals <180 mg/dL all other times of the day. Blood CAPILLARY BLOOD / Unknown 09/27/2024 4:38 PM EST 09/27/2024 4:38 PM EST Librado Patel MD POINT OF CARE TEST O ALDO Performing Organization Address City/[facility]/ZIP Co de Phone Number [facility] [place] [address] * POC, GLUCOSE (09/27/2024 12:53 PM EST) Glucometer, POC 145 65 - 199 mg/dL 09/27/2024 12:[address] [facility] Comment:Supplemental ranges: <140 mg/dL before meals <180 mg/dL all other times of the day. Blood CAPILLARY BLOOD / Unknown 09/27/2024 12:53 PM EST 09/27/2024 12:54 PM EST Librado Patel MD POINT OF CARE TEST O ALDO [facility] [place] [address] * C diff Screen (09/27/2024 8:46 AM EST) C Diff Interp Negative Negative 09/27/2024 1:[address] [facility] Comment:Clostridioides diffi cile is not present in the specimen. If patient is having diarrhea suspected to be from an infectious cause, then Soap & Water Contact Precautions are still required. If patient is having diarrhea with no suspected infectious cause use standard precautions. C Diff PCR Negative Negative 09/27/2024 1:[address] [facility] Stool STOOL SPECIMEN / Unknown Non Blood Collection / Unknown 09/27/2024 8:46 AM EST 09/27/2024 8:59 AM EST Mariola Calixto MD MICROBIOLOGY - GEN ERAL ORDERABLES Performing Organization Address [facility] Co de Phone Number [facility] [place] [address] * C Diff PCR (09/27/2024 8:46 AM EST) Stool STOOL SPECIMEN / Unknown Non Blood Collection / Unknown 09/27/2024 8:46 AM EST 09/27/2024 8:59 AM EST Mariola Calixto MD MICROBIOLOGY - GEN ERAL ORDERABLES Performing Organization Address [facility] Co de Phone Number [facility] [place] [address] * POC, GLUCOSE (09/27/2024 8:24 AM EST) Glucometer, POC 106 65 - 199 mg/dL 09/27/2024 8:[address] [facility] Comment:Supplemental ranges: <140 mg/dL before meals <180 mg/dL all other times of the day. Blood CAPILLARY BLOOD / Unknown 09/27/2024 8:24 AM EST 09/27/2024 8:25 AM EST Mariola Calixto MD POINT OF CARE TEST ORDERABLES Performing Organization Address [facility] Co ca Phone Number [facility] [place] [address] * POC, GLUCOSE (09/27/2024 3:40 AM EST) Glucometer, POC 148 65 - 199 mg/dL 09/27/2024 3:[address] [facility] Comment:Supplemental ranges: <140 mg/dL before meals <180 mg/dL all other times of the day. Blood CAPILLARY BLOOD / Unknown 09/27/2024 3:40 AM EST 09/27/2024 3:40 AM EST Mariola Calixto MD POINT OF CARE TEST ORDERABLES [facility] [place] [address] * Magnesium (09/27/2024 1:38 AM EST) Magnesium 0.91 0.69 - 1.07 mMol/L 09/27/2024 2:19 AM [facility] Blood VENOUS BLOOD SPECIMEN / Unknown Venipuncture / Unknown 09/27/2024 1:38 AM EST 09/27/2024 1:50 AM EST Librado Patel MD CHEMISTRY ORDERABLES Performing Organization Address City/[facility]/ZIP Co de Phone Number [facility] [place] [address] * (ABNORMAL) Basic Metabolic Panel (09/27/2024 1:38 AM EST) Glucose 148 65 - 199 mg/dL 09/27/2024 2:19 AM [facility] Comment:Glucose Concentratio n >=200 mg/dL plus symptoms is consistent with Diabetes Mellitus. Blood Urea Nitrogen 17 8 - 18 mg/dL 09/27/2024 2:19 AM [facility] Creatinine 0.51(L) 0.70 - 1.20 mg/dL 09/27/2024 2:19 AM [facility] Sodium 139 135 - 145 mMol/L 09/27/2024 2:19 AM [facility] Potassium 3.8 3.5 - 5.0 mMol/L 09/27/2024 2:19 AM [facility] Chloride 103 98 - 107 mMol/L 09/27/2024 2:19 AM [facility] Carbon Dioxide 25 22 - 31 mMol/L 09/27/2024 2:19 AM [facility] Anion Gap 11 5 - 15 mMol/L 09/27/2024 2:[address] [facility] Calcium 8.5 8.5 - 10.5 mg/dL 09/27/2024 2:[address] [facility] Est Glomerular Filtration Rate - Female 99 mL/min/1. 73 m?? 09/27/2024 2:[address] [facility] Comment: This patient's estimated GFR [...] AM EST Librado Patel MD CHEMISTRY ORDERABLES [facility] [place] [address] * (ABNORMAL) CBC (with Diff) (09/27/2024 1:38 AM EST) White Blood Cell 39.03([facility] ) 4.00 - 9.50 x10(3)/mc L 09/27/2024 2:[address] [facility] Red Blood Cell 4.12 4.00 - 5.21 x10(6)/mc L 09/27/2024 2:30 AM [facility] Hemoglobin 12.5 11.7 - 15.5 g/dL 09/27/2024 2:30 AM [facility] Hematocrit 37.4 35.7 - 45.8 % 09/27/2024 2:30 AM [facility] Mean Cell Volume 90.8 82.6 - 94.4 fL 09/27/2024 2:30 AM [facility] Mean Cell Hemoglobin 30.3 27.1 - 32.0 pg 09/27/2024 2:30 AM [facility] Mean Cell Hemoglobin Concentration 33.4 31.7 - 35.0 g/dL 09/27/2024 2:30 AM [facility] Platelet 510(H) 145 - 357 x10(3)/mc L 09/27/2024 2:30 AM [facility] Mean Platelet Volume 10.4 7.6 - 12.9 fL 09/27/2024 2:30 AM [facility] RDW Standard Deviation 42.5 37.0 - 46.0 fL 09/27/2024 2:30 AM [facility] RDW coefficient of variation 13.3 11.5 - 14.1 % 09/27/2024 2:30 AM [facility] NRBC% auto 0.2 % 09/27/2024 2:30 AM [facility] NRBC Absolute 0.06(H) <0.01 x10(3)/mc L 09/27/2024 2:30 AM [facility] Neutrophil % 85.1 % 09/27/2024 2:30 AM [facility] Neutrophil Absolute (ANC) - Automated 33.22(H) 1.70 - 6.10 x10(3)/mc L 09/27/2024 2:30 AM [facility] Lymph % 4.6 % 09/27/2024 2:30 AM [facility] Lymph Absolute 1.79 0.90 - 3.20 x10(3)/mc L 09/27/2024 2:30 AM [facility] Monocyte % 4.9 % 09/27/2024 2:30 AM [facility] Monocyte Absolute 1.93(H) 0.30 - 0.90 x10(3)/mc L 09/27/2024 2:30 AM [facility] Eos % 0.3 % 09/27/2024 2:[address] [facility] Eos Absolute 0.10 0.00 - 0.40 x10(3)/mc L 09/27/2024 2:[address] [facility] Basophil % 0.4 % 09/27/2024 2:[address] [facility] Baso Absolute 0.16(H) 0.00 - 0.10 x10(3)/mc L 09/27/2024 2:[address] [facility] Immature Gran % 4.7 % 2:30 AM [facility] Immature Gran Absolute 1.83(H) 0.00 - 0.04 x10(3)/mc L 09/27/2024 2:[address] [facility] Blood VENOUS BLOOD SPECIMEN / Unknown Venipuncture / Unknown 09/27/2024 1:38 AM EST 09/27/2024 1:50 AM EST Librado Patel MD HEMATOLOGY ORDERABLE S [facility] [place] [address] * Phosphorus (09/27/2024 1:38 AM EST) Phosphorus 4.0 2.5 - 4.5 mg/dL 09/27/2024 2:[address] [facility] Blood VENOUS BLOOD SPECIMEN / Unknown Venipuncture / Unknown 09/27/2024 1:38 AM EST 09/27/2024 1:50 AM EST Librado Patel MD CHEMISTRY ORDERABLES [facility] [place] [address] * POC, GLUCOSE (09/26/2024 11:30 PM EST) Glucometer, POC 121 65 - 199 mg/dL 09/26/2024 11:[address] [facility] Comment:Supplemental ranges: <140 mg/dL before meals <180 mg/dL all other times of the day. Blood CAPILLARY BLOOD / Unknown 09/26/2024 11:30 PM EST 09/26/2024 11:31 PM EST Mariola Calixto MD POINT OF CARE TEST ORDERABLES Performing Organization Address City/[facility]/ZIP Co de Phone Number [facility] [place] [address] * POC, GLUCOSE (09/26/2024 7:27 PM EST) Glucometer, POC 159 65 - 199 mg/dL 09/26/2024 7:[address] [facility] Comment:Supplemental ranges: <140 mg/dL before meals <180 mg/dL all other times of the day. Blood CAPILLARY BLOOD / Unknown 09/26/2024 7:27 PM EST 09/26/2024 7:27 PM EST Mariola Calixto MD POINT OF CARE TEST ORDERABLES Performing Organization Address City/[facility]/ZIP Co de Phone Number [facility] [place] [address] * POC, GLUCOSE (09/26/2024 3:12 PM EST) Glucometer, POC 115 65 - 199 mg/dL 09/26/2024 3:[address] [facility] Comment:Supplemental ranges: <140 mg/dL before meals <180 mg/dL all other times of the day. Blood CAPILLARY BLOOD / Unknown 09/26/2024 3:12 PM EST 09/26/2024 3:12 PM EST Mariola Calixto MD POINT OF CARE TEST ORDERABLES Performing Organization Address City/[facility]/ZIP Co de Phone Number [facility] [place] [address] * Blood culture (09/26/2024 2:53 PM EST) Blood Culture No growth at 120 hours 10/01/2024 4:[address] [facility] Blood VENOUS BLOOD SPECIMEN / Unknown Venipuncture / Unknown 09/26/2024 2:53 PM EST 09/26/2024 2:59 PM EST Jah Altman GUEST ROOM INSPECTOR MICROBIOLOGY - BLO OD ORDERABLES Performing Organization Address [facility]/ZIP Co de Phone Number [facility] [place] [address] * Blood culture (09/26/2024 2:42 PM EST) Blood Culture No growth at 120 hours 10/01/2024 4:[address] [facility] Blood VENOUS BLOOD SPECIMEN / Unknown Venipuncture / Unknown 09/26/2024 2:42 PM EST 09/26/2024 2:59 PM EST Jah Nelson Janakpatricia RAMOS MICROBIOLOGY - BLO OD ORDERABLES Performing Organization Address [facility] Co de Phone Number [facility] [place] [address] * (ABNORMAL) CT Abdomen & Pelvis w Contrast (09/26/2024 1:37 PM EST) WORKSTATION ID [id number] RAD Anatomical Region Laterality Modality Abdomen, Pelvis [...] who have questions please contact the health customer care agent that requested your imaging first. ? Electronically signed by: Marvin Decker DO, [facility] ([phone]), at 09/26/2024 1:54 PM Narrative 09/26/2024 1:54 [...] body habitus and arm positioning limits evaluation. Feather Drying Machine Operator Images: Noncontributory. CT OF THE CHEST: Pulmonary [...] endplate sclerosis and osteophyte formation. Jah Altman GUEST ROOM INSPECTOR [facility] [place] ORDERABLES * CT Head wo Contrast (Generic) (09/26/2024 1:37 PM EST) WORKSTATION ID [id number] RAD Anatomical Region Laterality Modality Head Computed [...] who have questions please contact the health customer care agent that requested your imaging first. ? Electronically signed by: Smiley Cordova MD, [facility] ([phone]), at 09/26/2024 2:26 PM Narrative 09/26/2024 2:26 [...] caliber, without decompensation. No new loss of edluca-white differentiation is appreciated. Foramen magnumand basilar cisterns [...] patients who have questions please contactthe health customer care agent that requested your imaging first. Electronically signed by: Smiley Cordova MD, [facility]([phone]), at 09/26/2024 2:26 PM Marisela Cartwright GUEST ROOM INSPECTOR [facility] [place] ORDERABLES * (ABNORMAL) CT Angiogram Chest for Pulmonary Embolus w Contrast (09/26/2024 1:37 PM EST) WORKSTATION ID [id number] RAD Anatomical Region Laterality Modality Chest Computed [...] who have questions please contact the health customer care agent that requested your imaging first. ? Electronically signed by: Marvin Decker DO, [facility] ([phone]), at 09/26/2024 1:54 PM Narrative 09/26/2024 1:54 [...] body habitus and arm positioning limits evaluation. Feather Drying Machine Operator Images: Noncontributory. CT OF THE CHEST: Pulmonary [...] Resulting Agency Comment Unexpected Finding Marisela Cartwright GUEST ROOM INSPECTOR IMG CT ORDERABLES * Potassium (09/26/2024 12:16 PM EST) Potassium 4.2 3.5 - 5.0 mMol/L 09/26/2024 1:[address] [facility] Blood VENOUS BLOOD SPECIMEN / Unknown Central/PICC Line / Unknown 09/26/2024 12:16 PM EST 09/26/2024 12:24 PM EST Librado Patel MD CHEMISTRY ORDERABLES Performing Organization Address City/[facility]/ZIP Co de Phone Number [facility] [place] [address] * POC, GLUCOSE (09/26/2024 11:27 AM EST) Glucometer, POC 110 65 - 199 mg/dL 09/26/2024 11:[address] [facility] Comment:Supplemental ranges: <140 mg/dL before meals <180 mg/dL all other times of the day. Blood CAPILLARY BLOOD / Unknown 09/26/2024 11:27 AM EST 09/26/2024 11:28 AM EST Mariola Calixto MD POINT OF CARE TEST ORDERABLES Performing Organization Address [facility] Co de Phone Number [facility] [place] [address] * POC, GLUCOSE (09/26/2024 7:52 AM EST) Glucometer, POC 161 65 - 199 mg/dL 09/26/2024 8:[address] [facility] Comment:Supplemental ranges: <140 mg/dL before meals <180 mg/dL all other times of the day. Blood CAPILLARY BLOOD / Unknown 09/26/2024 7:52 AM EST 09/26/2024 8:05 AM EST Mariola Calixto MD POINT OF CARE TEST ORDERABLES Performing Organization Address City/[facility] Co de Phone Number [facility] [place] [address] * CK (09/26/2024 6:35 AM EST) Creatine Kinase 78 0 - 160 unit/L 09/26/2024 7:[address] [facility] Blood VENOUS BLOOD SPECIMEN / Unknown Venipuncture / Unknown 09/26/2024 6:35 AM EST 09/26/2024 6:40 AM EST Jah Altman GUEST ROOM INSPECTOR CHEMISTRY ORDERABL ES Performing Organization Address City/[facility]/ZIP Co de Phone Number [facility] [place] [address] * Prolactin (09/26/2024 6:35 AM EST) Prolactin 23.0 4.8 - 23.3 ng/ml 09/26/2024 7:26 AM [facility] Blood VENOUS BLOOD SPECIMEN / Unknown Venipuncture / Unknown 09/26/2024 6:35 AM EST 09/26/2024 6:40 AM EST Jah Aragonell GUEST ROOM INSPECTOR CHEMISTRY ORDERABL ES Performing Organization Address City/[facility]/ZIP Co de Phone Number [facility] [place] [address] * (ABNORMAL) Hepatic Function Panel (09/26/2024 6:35 AM EST) Albumin 2.7(L) 3.2 - 5.2 g/dL 09/26/2024 7:19 AM [facility] Aspartate Aminotransferase 28 <=30 unit/L 09/26/2024 7:19 AM [facility] Alanine Aminotransferase 72(H) 0 - 30 unit/L 09/26/2024 7:19 AM [facility] Alkaline Phosphatase 81 35 - 105 unit/L 09/26/2024 7:19 AM [facility] Bilirubin, Total 0.4 <=1.3 mg/dL 09/26/2024 7:19 AM [facility] Bilirubin, Direct <0.2 0.0 - 0.3 mg/dL 09/26/2024 7:19 AM [facility] Protein, Total 5.2(L) 6.1 - 8.0 g/dL 09/26/2024 7:19 AM [facility] Blood VENOUS BLOOD SPECIMEN / Unknown Venipuncture / Unknown 09/26/2024 6:35 AM EST 09/26/2024 6:40 AM EST Jah Altman GUEST ROOM INSPECTOR CHEMISTRY ORDERABL ES [facility] [place] [address] * (ABNORMAL) Basic Metabolic Panel (09/26/2024 6:35 AM EST) Glucose 153 65 - 199 mg/dL 09/26/2024 7:19 AM [facility] Comment:Glucose Concentratio n >=200 mg/dL plus symptoms is consistent with Diabetes Mellitus. Blood Urea Nitrogen 23(H) 8 - 18 mg/dL 09/26/2024 7:19 AM [facility] Creatinine 0.53(L) 0.70 - 1.20 mg/dL 09/26/2024 7:19 AM [facility] Sodium 137 135 - 145 mMol/L 09/26/2024 7:19 AM [facility] Potassium 3.7 3.5 - 5.0 mMol/L 09/26/2024 7:19 AM [facility] Chloride 104 98 - 107 mMol/L 09/26/2024 7:19 AM [facility] Carbon Dioxide 23 22 - 31 mMol/L 09/26/2024 7:19 AM [facility] Anion Gap 10 5 - 15 mMol/L 09/26/2024 7:19 AM [facility] Calcium 8.1(L) 8.5 - 10.5 mg/dL 09/26/2024 7:19 AM [facility] Est Glomerular Filtration Rate - Female 98 mL/min/1. 73 m?? 09/26/2024 7:19 AM [facility] Comment: This patient's estimated GFR [...] Patel MD CHEMISTRY ORDERABLES Performing Organization Address City/[facility] Co de Phone Number [facility] [place] [address] * Phosphorus (09/26/2024 6:35 AM EST) Phosphorus 3.3 2.5 - 4.5 mg/dL 09/26/2024 7:[address] [facility] Blood VENOUS BLOOD SPECIMEN / Unknown Venipuncture / Unknown 09/26/2024 6:35 AM EST 09/26/2024 6:40 AM EST Librado Patel MD CHEMISTRY ORDERABLES Performing Organization Address [facility] Co de Phone Number [facility] [place] [address] * POC, GLUCOSE (09/26/2024 3:23 AM EST) Glucometer, POC 91 65 - 199 mg/dL 09/26/2024 3:[address] [facility] Comment:Supplemental ranges: <140 mg/dL before meals <180 mg/dL all other times of the day. Blood CAPILLARY BLOOD / Unknown 09/26/2024 3:23 AM EST 09/26/2024 3:24 AM EST Mariola Calixto MD POINT OF CARE TEST ORDERABLES [facility] [place] [address] * Lactate, Whole Blood (09/26/2024 12:31 AM EDT) [facility] Lactate, Whole Blood 1.7 0.5 - 2.2 mmol/L 09/26/2024 12:[address] [facility] Blood VENOUS BLOOD SPECIMEN / Unknown Venipuncture / Unknown 09/26/2024 12:31 AM EDT 09/26/2024 12:46 AM EDT Mariola Calixto MD CHEMISTRY ORDERABL ES Performing Organization Address City/[facility]/ZIP Co de Phone Number [facility] [place] [address] * Magnesium (09/26/2024 12:31 AM EDT) [facility] Magnesium 0.78 0.69 - 1.07 mMol/L 09/26/2024 1:[address] [facility] Blood VENOUS BLOOD SPECIMEN / Unknown Venipuncture / Unknown 09/26/2024 12:31 AM EDT 09/26/2024 12:46 AM EDT Librado Patel MD CHEMISTRY ORDERABLES Performing Organization Address City/[facility]/ZIP Co de Phone Number [facility] [place] [address] * (ABNORMAL) CBC (with Diff) (09/26/2024 12:31 AM EDT) [facility] White Blood Cell 30.94(HHH ) 4.00 - 9.50 x10(3)/mc L 09/26/2024 1:[address] [facility] Red Blood Cell 3.53(L) 4.00 - 5.21 x10(6)/mc L 09/26/2024 1:[address] [facility] Hemoglobin 10.7(L) 11.7 - 15.5 g/dL 09/26/2024 1:12 AM [facility] Hematocrit 32.2(L) 35.7 - 45.8 % 09/26/2024 1:12 AM [facility] Mean Cell Volume 91.2 82.6 - 94.4 fL 09/26/2024 1:12 AM [facility] Mean Cell Hemoglobin 30.3 27.1 - 32.0 pg 09/26/2024 1:12 AM [facility] Mean Cell Hemoglobin Concentration 33.2 31.7 - 35.0 g/dL 09/26/2024 1:12 AM [facility] Platelet 434(H) 145 - 357 x10(3)/mc L 09/26/2024 1:12 AM [facility] Mean Platelet Volume 10.7 7.6 - 12.9 fL 09/26/2024 1:12 AM [facility] RDW Standard Deviation 42.4 37.0 - 46.0 fL 09/26/2024 1:12 AM [facility] RDW coefficient of variation 13.0 11.5 - 14.1 % 09/26/2024 1:12 AM [facility] NRBC% auto 0.2 % 09/26/2024 1:12 AM [facility] NRBC Absolute 0.05(H) <0.01 x10(3)/mc L 09/26/2024 1:12 AM [facility] Neutrophil % 75.1 % 09/26/2024 1:12 AM [facility] Neutrophil Absolute (ANC) - Automated 23.25(H) 1.70 - 6.10 x10(3)/mc L 09/26/2024 1:12 AM [facility] Lymph % 10.8 % 09/26/2024 1:12 AM [facility] Lymph Absolute 3.33(H) 0.90 - 3.20 x10(3)/mc L 09/26/2024 1:[address] [facility] Monocyte % 6.8 % 09/26/2024 1:[address] [facility] Monocyte Absolute 2.09(H) 0.30 - 0.90 x10(3)/mc L 09/26/2024 1:[address] [facility] Eos % 0.2 % 09/26/2024 1:[address] [facility] Eos Absolute 0.06 0.00 - 0.40 x10(3)/mc L 09/26/2024 1:[address] [facility] Basophil % 0.3 % 09/26/2024 1:[address] [facility] Baso Absolute 0.10 0.00 - 0.10 x10(3)/mc L 09/26/2024 1:[address] [facility] Immature Gran % 6.8 % 1:[address] [facility] Immature Gran Absolute 2.11(H) 0.00 - 0.04 x10(3)/mc L 09/26/2024 1:[address] [facility] Blood VENOUS BLOOD SPECIMEN / Unknown Venipuncture / Unknown 09/26/2024 12:31 AM EDT 09/26/2024 12:46 AM EDT Librado Patel MD HEMATOLOGY ORDERABLE S [facility] [place] [address] * (ABNORMAL) Basic Metabolic Panel (09/26/2024 12:31 AM EDT) Glucose 179 65 - 199 mg/dL 09/26/2024 1:[address] [facility] Comment:Glucose Concentratio n >=200 mg/dL plus symptoms is consistent with Diabetes Mellitus. Blood Urea Nitrogen 26(H) 8 - 18 mg/dL 09/26/2024 1:[address] [facility] Creatinine 0.56(L) 0.70 - 1.20 mg/dL 09/26/2024 1:[address] [facility] Sodium 137 135 - 145 mMol/L 09/26/2024 1:32 AM [facility] Potassium 3.7 3.5 - 5.0 mMol/L 09/26/2024 1:32 AM [facility] Chloride 104 98 - 107 mMol/L 09/26/2024 1:32 AM [facility] Carbon Dioxide 23 22 - 31 mMol/L 09/26/2024 1:32 AM [facility] Anion Gap 10 5 - 15 mMol/L 09/26/2024 1:32 AM [facility] Calcium 7.9(L) 8.5 - 10.5 mg/dL 09/26/2024 1:32 AM [facility] Est Glomerular Filtration Rate - Female 97 mL/min/1. 73 m?? 09/26/2024 1:32 AM [facility] Comment: This patient's estimated GFR [...] AM EDT Librado Patel MD CHEMISTRY ORDERABLES [facility] [place] [address] * Phosphorus (09/26/2024 12:31 AM EDT) Phosphorus 3.1 2.5 - 4.5 mg/dL 09/26/2024 1:[address] [facility] Blood VENOUS BLOOD SPECIMEN / Unknown Venipuncture / Unknown 09/26/2024 12:31 AM EDT 09/26/2024 12:46 AM EDT Librado Patel MD CHEMISTRY ORDERABLES [facility] [place] [address] * POC, GLUCOSE (09/26/2024 12:06 AM EDT) Glucometer, POC 196 65 - 199 mg/dL 09/26/2024 12:[address] [facility] Comment:Supplemental ranges: <140 mg/dL before meals <180 mg/dL all other times of the day. Blood CAPILLARY BLOOD / Unknown 09/26/2024 12:06 AM EDT 09/26/2024 12:07 AM EDT Mariola Calixto MD POINT OF CARE TEST ORDERABLES Performing Organization Address City/[facility]/ZIP Co de Phone Number [facility] [place] [address] * POC, GLUCOSE (09/25/2024 7:41 PM EDT) Glucometer, POC 178 65 - 199 mg/dL 09/25/2024 7:[address] [facility] Comment:Supplemental ranges: <140 mg/dL before meals <180 mg/dL all other times of the day. Blood CAPILLARY BLOOD / Unknown 09/25/2024 7:41 PM EDT 09/25/2024 7:41 PM EDT Mariola Calixto MD POINT OF CARE TEST ORDERABLES [facility] [place] [address] * POC, GLUCOSE (09/25/2024 4:01 PM EDT) Glucometer, POC 150 65 - 199 mg/dL 09/25/2024 4:[address] [facility] Comment:Supplemental ranges: <140 mg/dL before meals <180 mg/dL all other times of the day. Blood CAPILLARY BLOOD / Unknown 09/25/2024 4:01 PM EDT 09/25/2024 4:02 PM EDT Mariola Calixto MD POINT OF CARE TEST ORDERABLES [facility] [place] [address] * POC, GLUCOSE (09/25/2024 11:59 AM EDT) Glucometer, POC 130 65 - 199 mg/dL 09/25/2024 12:[address] [facility] Comment:Supplemental ranges: <140 mg/dL before meals <180 mg/dL all other times of the day. Blood CAPILLARY BLOOD / Unknown 09/25/2024 11:59 AM EDT 09/25/2024 12:00 PM EDT Mariola Calixto MD POINT OF CARE TEST ORDERABLES [facility] [place] [address] * POC, GLUCOSE (09/25/2024 7:46 AM EDT) Glucometer, POC 158 65 - 199 mg/dL 09/25/2024 7:[address] [facility] Comment:Supplemental ranges: <140 mg/dL before meals <180 mg/dL all other times of the day. Blood CAPILLARY BLOOD / Unknown 09/25/2024 7:46 AM EDT 09/25/2024 7:47 AM EDT Mariola Calixto MD POINT OF CARE TEST ORDERABLES [facility] [place] [address] * Magnesium (09/25/2024 4:29 AM EDT) Pathologist [facility] Magnesium 0.91 0.69 - 1.07 mMol/L 09/25/2024 5:[address] [facility] Blood VENOUS BLOOD SPECIMEN / Unknown Venipuncture / Unknown 09/25/2024 4:29 AM EDT 09/25/2024 4:35 AM EDT Librado Patel MD CHEMISTRY ORDERABLES Performing Organization Address City/[facility]/ZIP Co de Phone Number [facility] [place] [address] * (ABNORMAL) Basic Metabolic Panel (09/25/2024 4:29 AM EDT) Pathologist [facility] Glucose 185 65 - 199 mg/dL 09/25/2024 5:[address] [facility] Comment:Glucose Concentratio n >=200 mg/dL plus symptoms is consistent with Diabetes Mellitus. Blood Urea Nitrogen 28(H) 8 - 18 mg/dL 09/25/2024 5:[address] [facility] Creatinine 0.49(L) 0.70 - 1.20 mg/dL 09/25/2024 5:[address] [facility] Sodium 138 135 - 145 mMol/L 09/25/2024 5:[address] [facility] Potassium 4.1 3.5 - 5.0 mMol/L 09/25/2024 5:[address] [facility] Chloride 102 98 - 107 mMol/L 09/25/2024 5:[address] [facility] Carbon Dioxide 24 22 - 31 mMol/L 09/25/2024 5:[address] [facility] Anion Gap 12 5 - 15 mMol/L 09/25/2024 5:[address] [facility] Calcium 8.4(L) 8.5 - 10.5 mg/dL 09/25/2024 5:[address] [facility] Est Glomerular Filtration Rate - Female 100 mL/min/1. 73 m?? 09/25/2024 5:[address] [facility] Comment: This patient's estimated GFR [...] AM EDT Librado Patel MD CHEMISTRY ORDERABLES [facility] [place] [address] * (ABNORMAL) CBC (with Diff) (09/25/2024 4:29 AM EDT) White Blood Cell 27.24(H) 4.00 - 9.50 x10(3)/mc L 09/25/2024 4:[address] [facility] Red Blood Cell 3.57(L) 4.00 - 5.21 x10(6)/mc L 09/25/2024 4:[address] [facility] Hemoglobin 10.5(L) 11.7 - 15.5 g/dL 09/25/2024 4:[address] [facility] Hematocrit 31.9(L) 35.7 - 45.8 % 09/25/[facility]24 [facility] Mean Cell Volume 89.4 82.6 - 94.4 fL 09/25/2024 4:41 AM [facility] Mean Cell Hemoglobin 29.4 27.1 - 32.0 pg 09/25/2024 4:41 AM [facility] Mean Cell Hemoglobin Concentration 32.9 31.7 - 35.0 g/dL 09/25/2024 4:41 AM [facility] Platelet 379(H) 145 - 357 x10(3)/mc L 09/25/2024 4:41 AM [facility] Mean Platelet Volume 10.8 7.6 - 12.9 fL 09/25/2024 4:41 AM [facility] RDW Standard Deviation 40.4 37.0 - 46.0 fL 09/25/2024 4:41 AM [facility] RDW coefficient of variation 12.5 11.5 - 14.1 % 09/25/2024 4:41 AM [facility] NRBC% auto 0.1 % 09/25/2024 4:41 AM [facility] NRBC Absolute 0.03(H) <0.01 x10(3)/mc L 09/25/2024 4:41 AM [facility] Neutrophil % 85.4 % 09/25/2024 4:41 AM [facility] Neutrophil Absolute (ANC) - Automated 23.24(H) 1.70 - 6.10 x10(3)/mc L 09/25/2024 4:41 AM [facility] Lymph % 3.7 % 09/25/2024 4:41 AM [facility] Lymph Absolute 1.02 0.90 - 3.20 x10(3)/mc L 09/25/2024 4:41 AM [facility] Monocyte % 5.4 % 09/25/2024 4:41 AM [facility] Monocyte Absolute 1.48(H) 0.30 - 0.90 x10(3)/mc L 09/25/2024 4:[address] [facility] Eos % 0.0 % 09/25/2024 4:[address] [facility] Eos Absolute <0.04 0.00 - 0.40 x10(3)/mc L 09/25/2024 4:[address] [facility] Basophil % 0.3 % 09/25/2024 4:[address] [facility] Baso Absolute 0.08 0.00 - 0.10 x10(3)/mc L 09/25/2024 4:[address] [facility] Immature Gran % 5.2 % 4:[address] [facility] Immature Gran Absolute 1.41(H) 0.00 - 0.04 x10(3)/mc L 09/25/2024 4:[address] [facility] Blood VENOUS BLOOD SPECIMEN / Unknown Venipuncture / Unknown 09/25/2024 4:29 AM EDT 09/25/2024 4:35 AM EDT Librado Patel MD HEMATOLOGY ORDERABLE S [facility] [place] [address] * Phosphorus (09/25/2024 4:29 AM EDT) Phosphorus 3.4 2.5 - 4.5 mg/dL 09/25/2024 5:[address] [facility] Blood VENOUS BLOOD SPECIMEN / Unknown Venipuncture / Unknown 09/25/2024 4:29 AM EDT 09/25/2024 4:35 AM EDT Librado Patel MD CHEMISTRY ORDERABLES [facility] [place] [address] * POC, GLUCOSE (09/25/2024 3:46 AM EDT) Glucometer, POC 159 65 - 199 mg/dL 09/25/2024 3:[address] [facility] Comment:Supplemental ranges: <140 mg/dL before meals <180 mg/dL all other times of the day. Blood CAPILLARY BLOOD / Unknown 09/25/2024 3:46 AM EDT 09/25/2024 3:47 AM EDT Mariola Calixto MD POINT OF CARE TEST ORDERABLES Performing Organization Address City/[facility]/ZIP Co de Phone Number [facility] [place] [address] * POC, GLUCOSE (09/24/2024 11:50 PM EDT) Glucometer, POC 145 65 - 199 mg/dL 09/24/2024 11:[address] [facility] Comment:Supplemental ranges: <140 mg/dL before meals <180 mg/dL all other times of the day. Blood CAPILLARY BLOOD / Unknown 09/24/2024 11:50 PM EDT 09/24/2024 11:50 PM EDT Mariola Calixto MD POINT OF CARE TEST ORDERABLES [facility] [place] [address] * POC, GLUCOSE (09/24/2024 7:50 PM EDT) Glucometer, POC 166 65 - 199 mg/dL 09/24/2024 7:[address] [facility] Comment:Supplemental ranges: <140 mg/dL before meals <180 mg/dL all other times of the day. Blood CAPILLARY BLOOD / Unknown 09/24/2024 7:50 PM EDT 09/24/2024 7:50 PM EDT Mariola Calixto MD POINT OF CARE TEST ORDERABLES [facility] [place] [address] * (ABNORMAL) POC, GLUCOSE (09/24/2024 3:18 PM EDT) Glucometer, POC 202(H) 65 - 199 mg/dL 09/24/2024 3:[address] [facility] Comment:Supplemental ranges: <140 mg/dL before meals <180 mg/dL all other times of the day. Blood CAPILLARY BLOOD / Unknown 09/24/2024 3:18 PM EDT 09/24/2024 3:18 PM EDT Mariola Calixto MD POINT OF CARE TEST ORDERABLES Performing Organization Address [facility]/ZIP Co de Phone Number [facility] [place] [place] [address] * POC, GLUCOSE (09/24/2024 11:16 AM EDT) Glucometer, POC 182 65 - 199 mg/dL 09/24/2024 11:[address] [facility] Comment:Supplemental ranges: <140 mg/dL before meals <180 mg/dL all other times of the day. Blood CAPILLARY BLOOD / Unknown 09/24/2024 11:16 AM EDT 09/24/2024 11:17 AM EDT Mariola Calixto MD POINT OF CARE TEST ORDERABLES [facility] [place] [address] * POC, GLUCOSE (09/24/2024 7:39 AM EDT) Glucometer, POC 170 65 - 199 mg/dL 09/24/2024 7:[address] [facility] Comment:Supplemental ranges: <140 mg/dL before meals <180 mg/dL all other times of the day. Blood CAPILLARY BLOOD / Unknown 09/24/2024 7:39 AM EDT 09/24/2024 7:40 AM EDT Mariola Calixto MD POINT OF CARE TEST ORDERABLES [facility] [place] [place] [address] * (ABNORMAL) Scan, Peripheral Blood (09/24/2024 5:00 AM EDT) RBC Morphology Abnormal 09/24/2024 5:[address] [facility] Platelet Estimate Normal Normal 024 5:[address] [facility] Polychromasia Present 09/24/2024 5:[address] [facility] Platelet Clumps Present(A) (none) 5:[address] [facility] WBC MORPHOLOGY See Comment(A) (none) 09/24/2024 5:[address] [facility] Comment:Hypersegmentation Blood VENOUS BLOOD SPECIMEN / Unknown 09/24/2024 5:00 AM EDT 09/24/2024 5:13 AM EDT Jah Altman APRN HEMATOLOGY ORDERAB LES Performing Organization Address City/[facility]/ZIP Co de Phone Number [facility] [place] [address] * Magnesium (09/24/2024 5:00 AM EDT) Magnesium 0.89 0.69 - 1.07 mMol/L 09/24/2024 5:[address] [facility] Blood VENOUS BLOOD SPECIMEN / Unknown 09/24/2024 5:00 AM EDT 09/24/2024 5:13 AM EDT Librado Patel MD CHEMISTRY ORDERABLES [facility] [place] [address] * (ABNORMAL) Basic Metabolic Panel (09/24/2024 5:00 AM EDT) Glucose 202(H) 65 - 199 mg/dL 09/24/2024 5:50 AM [facility] Comment:Glucose Concentratio n >=200 mg/dL plus symptoms is consistent with Diabetes Mellitus. Blood Urea Nitrogen 28(H) 8 - 18 mg/dL 09/24/2024 5:50 AM [facility] Creatinine 0.51(L) 0.70 - 1.20 mg/dL 09/24/2024 5:50 AM [facility] Sodium 138 135 - 145 mMol/L 09/24/2024 5:50 AM [facility] Potassium 4.2 3.5 - 5.0 mMol/L 09/24/2024 5:50 AM [facility] Chloride 102 98 - 107 mMol/L 09/24/2024 5:50 AM [facility] Carbon Dioxide 26 22 - 31 mMol/L 09/24/2024 5:50 AM [facility] Anion Gap 10 5 - 15 mMol/L 09/24/2024 5:50 AM [facility] Calcium 8.5 8.5 - 10.5 mg/dL 09/24/2024 5:50 AM [facility] Est Glomerular Filtration Rate - Female 99 mL/min/1. 73 m?? 09/24/2024 5:50 AM [facility] Comment: This patient's estimated GFR [...] AM EDT Librado Patel MD CHEMISTRY ORDERABLES [facility] [place] [address] * (ABNORMAL) CBC (with Diff) (09/24/2024 5:00 AM EDT) White Blood Cell 19.25(H) 4.00 - 9.50 x10(3)/mc L 09/24/2024 5:[address] [facility] Red Blood Cell 3.34(L) 4.00 - 5.21 x10(6)/mc L 09/24/2024 5:[address] [facility] Hemoglobin 9.7(L) 11.7 - 15.5 g/dL 09/24/2024 5:[address] [facility] Hematocrit 30.6(L) 35.7 - 45.8 % 09/24/2024 5:[address] [facility] Mean Cell Volume 91.6 82.6 - 94.4 fL 09/24/2024 5:[address] [facility] Mean Cell Hemoglobin 29.0 27.1 - 32.0 pg 09/24/2024 5:[address] [facility] Mean Cell Hemoglobin Concentration 31.7 31.7 - 35.0 g/dL 09/24/2024 5:[address] [facility] Platelet 342 145 - 357 x10(3)/mc L 09/24/2024 5:[address] [facility] Mean Platelet Volume 11.0 7.6 - 12.9 fL 09/24/2024 5:[address] [facility] RDW Standard Deviation 41.1 37.0 - 46.0 fL 09/24/2024 5:[address] [facility] RDW coefficient of variation 12.5 11.5 - 14.1 % 09/24/2024 5:47 AM [facility] NRBC% auto 0.1 % 09/24/2024 5:47 AM [facility] NRBC Absolute 0.02(H) <0.01 x10(3)/mc L 09/24/2024 5:47 AM [facility] Neutrophil % 84.6 % 09/24/2024 5:47 AM [facility] Comment:This is an appended report. These results have been appended to a previously preliminary verified report. Neutrophil Absolute (ANC) - Automated 16.30(H) 1.70 - 6.10 x10(3)/mc L 09/24/2024 5:47 AM [facility] Comment:This is an appended report. These results have been appended to a previously preliminary verified report. Lymph % 3.0 % 09/24/2024 5:47 AM [facility] Comment:This is an appended report. These results have been appended to a previously preliminary verified report. Lymph Absolute 0.57(L) 0.90 - 3.20 x10(3)/mc L 09/24/2024 5:47 AM [facility] Comment:This is an appended report. These results have been appended to a previously preliminary verified report. Monocyte % 7.0 % 09/24/2024 5:47 AM [facility] Comment:This is an appended report. These results have been appended to a previously preliminary verified report. Monocyte Absolute 1.35(H) 0.30 - 0.90 x10(3)/mc L 09/24/2024 5:47 AM [facility] Comment:This is an appended report. These results have been appended to a previously preliminary verified report. Eos % 0.0 % 09/24/2024 5:47 AM [facility] Comment:This is an appended report. These results have been appended to a previously preliminary verified report. Eos Absolute <0.04 0.00 - 0.40 x10(3)/mc L 09/24/2024 5:[address] [facility] Comment:This is an appended report. These results have been appended to a previously preliminary verified report. Basophil % 0.2 % 09/24/2024 5:[address] [facility] Comment:This is an appended report. These results have been appended to a previously preliminary verified report. Baso Absolute <0.04 0.00 - 0.10 x10(3)/mc L 09/24/2024 5:[address] [facility] Comment:This is an appended report. These results have been appended to a previously preliminary verified report. Immature Gran % 5.2 % 5:[address] [facility] Comment:This is an appended report. These results have been appended to a previously preliminary verified report. Immature Gran Absolute 1.00(H) 0.00 - 0.04 x10(3)/mc L 09/24/2024 5:[address] [facility] Comment:This is an appended report. These results have been appended to a previously preliminary verified report. Blood VENOUS BLOOD SPECIMEN / Unknown 09/24/2024 5:00 AM EDT 09/24/2024 5:13 AM EDT Librado Patel MD HEMATOLOGY ORDERABLE S [facility] [place] [address] * Phosphorus (09/24/2024 5:00 AM EDT) Phosphorus 3.7 2.5 - 4.5 mg/dL 09/24/2024 5:[address] [facility] Blood VENOUS BLOOD SPECIMEN / Unknown 09/24/2024 5:00 AM EDT 09/24/2024 5:13 AM EDT Librado Patel MD CHEMISTRY ORDERABLES Performing Organization Address City/[facility]/ZIP Co de Phone Number [facility] [place] [address] * (ABNORMAL) POC, GLUCOSE (09/24/2024 4:05 AM EDT) Glucometer, POC 210(H) 65 - 199 mg/dL 09/24/2024 4:[address] [facility] Comment:Supplemental ranges: <140 mg/dL before meals <180 mg/dL all other times of the day. Blood CAPILLARY BLOOD / Unknown 09/24/2024 4:05 AM EDT 09/24/2024 4:05 AM EDT Mariola Calixto MD POINT OF CARE TEST ORDERABLES Performing Organization Address [facility]/ZIP Co de Phone Number [facility] [place] [address] * POC, GLUCOSE (09/23/2024 11:57 PM EDT) Glucometer, POC 179 65 - 199 mg/dL 09/23/2024 11:[address] [facility] Comment:Supplemental ranges: <140 mg/dL before meals <180 mg/dL all other times of the day. Blood CAPILLARY BLOOD / Unknown 09/23/2024 11:57 PM EDT 09/23/2024 11:58 PM EDT Mariola Calixto MD POINT OF CARE TEST ORDERABLES [facility] [place] [address] * POC, GLUCOSE (09/23/2024 7:59 PM EDT) Glucometer, POC 179 65 - 199 mg/dL 09/23/2024 8:[address] [facility] Comment:Supplemental ranges: <140 mg/dL before meals <180 mg/dL all other times of the day. Blood CAPILLARY BLOOD / Unknown 09/23/2024 7:59 PM EDT 09/23/2024 8:00 PM EDT Mariola Calixto MD POINT OF CARE TEST ORDERABLES [facility] [place] [address] * Potassium (09/23/2024 4:23 PM EDT) Potassium 4.3 3.5 - 5.0 mMol/L 09/23/2024 5:[address] [facility] Blood VENOUS BLOOD SPECIMEN / Unknown Venipuncture / Unknown 09/23/2024 4:23 PM EDT 09/23/2024 4:39 PM EDT Librado Patel MD CHEMISTRY ORDERABLES Performing Organization Address City/[facility]/ZIP Co de Phone Number [facility] [place] [address] * POC, GLUCOSE (09/23/2024 3:53 PM EDT) Glucometer, POC 167 65 - 199 mg/dL 09/23/2024 3:[address] [facility] Comment:Supplemental ranges: <140 mg/dL before meals <180 mg/dL all other times of the day. Blood CAPILLARY BLOOD / Unknown 09/23/2024 3:53 PM EDT 09/23/2024 3:53 PM EDT Mariola Calixto MD POINT OF CARE TEST ORDERABLES [facility] [place] [address] * POC, GLUCOSE (09/23/2024 11:30 AM EDT) Glucometer, POC 162 65 - 199 mg/dL 09/23/2024 11:[address] [facility] Comment:Supplemental ranges: <140 mg/dL before meals <180 mg/dL all other times of the day. Blood CAPILLARY BLOOD / Unknown 09/23/2024 11:30 AM EDT 09/23/2024 11:30 AM EDT Mariola Calixto MD POINT OF CARE TEST ORDERABLES Performing Organization Address City/[facility]/ZIP Co de Phone Number [facility] [place] [address] * (ABNORMAL) Urinalysis Microscopic (09/23/2024 10:29 AM EDT) Budding Yeast, Urine Many(A) None /HPF 09/23/2024 11:[address] [facility] Hyphae Yeast, Urine Many(A) None /HPF 09/23/2024 11:[address] [facility] RBC, Urine 9(H) 0 - 4 /HPF 09/23/2024 11:[address] [facility] WBC, Urine 14(H) 0 - 5 /HPF 09/23/2024 11:[address] [facility] Squamous Epithelial Cells, Urine 2 0 - 5 /HPF 09/23/2024 11:[address] [facility] Hyaline Casts, Urine 1 0 - 2 /LPF 09/23/2024 11:[address] [facility] Comment 09/23/2024 11:[address] [facility] Comment:Interpret results wi th caution, microscopic results are from a suboptimal specimen. Bacteria, Urine Few(A) None /HPF 11:[address] [facility] Urine URINE SPECIMEN OBTAINED BY CLEAN CATCH PROCEDURE / Unknown Non Blood Collection / Unknown 09/23/2024 10:29 AM EDT 09/23/2024 10:38 AM EDT Mariola Calixto MD URINE ORDERABLES Performing Organization Address City/[facility]/ZIP Co de Phone Number [facility] [place] [address] * Urinalysis Microscopic Exam (09/23/2024 10:29 AM EDT) Urine Non Blood Collection / Unknown 09/23/2024 10:29 AM EDT 09/23/2024 10:38 AM EDT Mariola Calixto MD URINE ORDERABLES [facility] [place] [address] * (ABNORMAL) Urinalysis Dipstick (09/23/2024 10:29 AM EDT) Glucose, Urine Dipstick Negative Negative 09/23/2024 11:[address] [facility] Protein, Urine Dipstick Negative Negative 09/23/2024 11:[address] [facility] Bilirubin, Urine Dipstick Negative Negative 09/23/2024 11:[address] [facility] Comment:Clinical correlation required for positive Urine Bilirubin results as false positive may occur with some drugs and drug related products. If a false positive is suspected a serum total bilirubin should be considered if clinically indicated. Urobilinogen, Urine Dipstick Normal Normal, 0.2 mg/dL, 1.0 mg/dL 09/23/2024 11:[address] [facility] pH, Urine (dipstick) 6.5 5.0 - 8.0 09/23/2024 11:[address] [facility] Blood, Urine Dipstick Moderate(A) Negative [facility] Ketone, Urine Dipstick Negative Negative 09/23/2024 11:18 AM [facility] Nitrite, Urine Dipstick Negative Negative 09/23[facility]2024 [facility] Leukocytes, Urine Dipstick Small(A) Negative 09/23/2024 11:[facility] Specific [place] Urine Automated 1.019 1.005 - 1.030 09/23/2024 11:[address] [facility] Appearance, Urine Dipstick Cloudy(A) Clear 09/23/2024 11:[address] [facility] Color, Urine Dipstick Yellow Yellow, Dark Yellow 09/23/2024 11:[address] [facility] CULTURE ADDED? 09/23/2024 11:[address] [facility] Urine Non Blood Collection / Unknown 09/23/2024 10:29 AM EDT 09/23/2024 10:38 AM EDT Mariola Calixto MD URINE ORDERABLES [facility] [place] [address] * (ABNORMAL) Respiratory Culture, Quantitative (09/23/2024 10:26 AM EDT) Quantitative Bacterial Culture >100,000 CFU/mL Streptococcus anginosus group(A) VITEK 2 METHOD 09/25/2024 8:[address] [facility] Quantitative Bacterial Culture 50 CFU/mL mixed bacterial morphotypes suggestive of normal upper respiratory franco VITEK 2 METHOD 09/25/2024 8:[address] [facility] Gram Stain Cytocentrifuge Gram Stain performed(A) 09/25/2024 8:[address] [facility] Gram Stain neutrophils(A) 09/25/2024 8:[address] [facility] Gram Stain Moderate Gram negative rods(A) 09/25/2024 8:[address] [facility] Gram Stain Many Mixed bacterial morphotypes suggestive of normal upper respiratory franco(A) 09/25/2024 8:[address] [facility] Bronchial Alveolar Lavage STRUCTURE OF LOWER LOBE OF LEFT LUNG / Unknown 09/23/2024 10:26 AM EDT 09/23/2024 11:30 AM EDT Mariola Calixto MD MICROBIOLOGY - GEN ERAL ORDERABLES [facility] [place] [address] * (ABNORMAL) Hepatic Function Panel (09/23/2024 7:56 AM EDT) Albumin 3.0(L) 3.2 - 5.2 g/dL 09/23/2024 10:[address] [facility] Aspartate Aminotransferase 18 <=30 unit/L 09/23/2024 10:[address] [facility] Alanine Aminotransferase 56(H) 0 - 30 unit/L 09/23/2024 10:[address] [facility] Alkaline Phosphatase 80 35 - 105 unit/L 09/23/2024 10:[address] [facility] Bilirubin, Total 0.3 <=1.3 mg/dL 09/23/2024 10:[address] [facility] Bilirubin, Direct <0.2 0.0 - 0.3 mg/dL 09/23/2024 10:[address] [facility] Protein, Total 5.8(L) 6.1 - 8.0 g/dL 09/23/2024 10:[address] [facility] Blood VENOUS BLOOD SPECIMEN / Unknown IP Care Team Draw / Unknown 09/23/2024 7:56 AM EDT 09/23/2024 8:23 AM EDT Mariola Calixto MD CHEMISTRY ORDERABL ES [facility] [place] [address] * Potassium (09/23/2024 7:56 AM EDT) Potassium 3.9 3.5 - 5.0 mMol/L 09/23/2024 9:[address] [facility] Blood VENOUS BLOOD SPECIMEN / Unknown IP Care Team Draw / Unknown 09/23/2024 7:56 AM EDT 09/23/2024 8:23 AM EDT Librado Patel MD CHEMISTRY ORDERABLES Performing Organization Address [facility] Co de Phone Number [facility] [place] [address] * POC, GLUCOSE (09/23/2024 7:41 AM EDT) Glucometer, POC 169 65 - 199 mg/dL 09/23/2024 7:[address] [facility] Comment:Supplemental ranges: <140 mg/dL before meals <180 mg/dL all other times of the day. Blood CAPILLARY BLOOD / Unknown 09/23/2024 7:41 AM EDT 09/23/2024 7:42 AM EDT Mariola Calixto MD POINT OF CARE TEST ORDERABLES Performing Organization Address [facility] Co de Phone Number [facility] [place] [address] * POC, GLUCOSE (09/23/2024 7:15 AM EDT) Glucometer, POC 167 65 - 199 mg/dL 09/23/2024 7:[address] [facility] Comment:Supplemental ranges: <140 mg/dL before meals <180 mg/dL all other times of the day. Blood CAPILLARY BLOOD / Unknown 09/23/2024 7:15 AM EDT 09/23/2024 7:15 AM EDT Mariola Calixto MD POINT OF CARE TEST ORDERABLES Performing Organization Address City/[facility] Co de Phone Number [facility] [place] [address] * (ABNORMAL) POC, GLUCOSE (09/23/2024 4:11 AM EDT) Glucometer, POC 209(H) 65 - 199 mg/dL 09/23/2024 4:[address] [facility] Comment:Supplemental ranges: <140 mg/dL before meals <180 mg/dL all other times of the day. Blood CAPILLARY BLOOD / Unknown 09/23/2024 4:11 AM EDT 09/23/2024 4:11 AM EDT Mariola Calixto MD POINT OF CARE TEST ORDERABLES Performing Organization Address City/[facility]/ZIP Co de Phone Number [facility] [place] [address] * Phosphorus (09/23/2024 1:01 AM EDT) Phosphorus 3.2 2.5 - 4.5 mg/dL 09/23/2024 1:[address] [facility] Blood VENOUS BLOOD SPECIMEN / Unknown IP Care Team Draw / Unknown 09/23/2024 1:01 AM EDT 09/23/2024 1:15 AM EDT Librado Patel MD CHEMISTRY ORDERABLES Performing Organization Address City/[facility]/ZIP Co de Phone Number [facility] [place] [address] * Magnesium (09/23/2024 1:01 AM EDT) Magnesium 0.85 0.69 - 1.07 mMol/L 09/23/2024 1:[address] [facility] Blood VENOUS BLOOD SPECIMEN / Unknown IP Care Team Draw / Unknown 09/23/2024 1:01 AM EDT 09/23/2024 1:15 AM EDT Librado Patel MD CHEMISTRY ORDERABLES Performing Organization Address City/[facility]/ZIP Co de Phone Number [facility] [place] [address] * (ABNORMAL) Basic Metabolic Panel (09/23/2024 1:01 AM EDT) Glucose 211(H) 65 - 199 mg/dL 09/23[facility]2024 1:43 [facility] Comment:Glucose Concentratio n >=200 mg/dL plus symptoms is consistent with Diabetes Mellitus. Blood Urea Nitrogen 26(H) 8 - 18 mg/dL 09/23/2024 1:43 AM [facility] Creatinine 0.47(L) 0.70 - 1.20 mg/dL 09/23/2024 1:43 AM [facility] Sodium 138 135 - 145 mMol/L 09/23/2024 1:43 AM [facility] Potassium 3.9 3.5 - 5.0 mMol/L 09/23/2024 1:43 AM [facility] Chloride 103 98 - 107 mMol/L 09/23/2024 1:43 AM [facility] Carbon Dioxide 25 22 - 31 mMol/L 09/23/2024 1:43 AM [facility] Anion Gap 10 5 - 15 mMol/L 09/23/2024 1:43 AM [facility] Calcium 8.7 8.5 - 10.5 mg/dL 09/23/2024 1:43 AM [facility] Est Glomerular Filtration Rate - Female 101 mL/min/1. 73 m?? 09/23/2024 1:43 AM [facility] Comment: This patient's estimated GFR [...] AM EDT Librado Patel MD CHEMISTRY ORDERABLES [facility] [place] [address] * (ABNORMAL) CBC (with Diff) (09/23/2024 1:01 AM EDT) White Blood Cell 19.97(H) 4.00 - 9.50 x10(3)/mc L 09/23/2024 1:[address] [facility] Red Blood Cell 3.37(L) 4.00 - 5.21 x10(6)/mc L 09/23/2024 1:[address] [facility] Hemoglobin 10.0(L) 11.7 - 15.5 g/dL 09/23/2024 1:[address] [facility] Hematocrit 30.1(L) 35.7 - 45.8 % 09/23/2024 1:[address] [facility] Mean Cell Volume 89.3 82.6 - 94.4 fL 09/23/2024 1:[address] [facility] Mean Cell Hemoglobin 29.7 27.1 - 32.0 pg 09/23/2024 1:[address] [facility] Mean Cell Hemoglobin Concentration 33.2 31.7 - 35.0 g/dL 09/23/2024 1:[address] [facility] Platelet 293 145 - 357 x10(3)/mc L 09/23/2024 1:[address] [facility] Mean Platelet Volume 10.9 7.6 - 12.9 fL 09/23/2024 1:[facility] RDW Standard Deviation 39.9 37.0 - 46.0 fL 09/23/2024 1:[facility] RDW coefficient of variation 12.4 11.5 - 14.1 % 09/23/2024 1:19 [facility] NRBC% auto 0.1 % 09/23/2024 1:19 AM [facility] NRBC Absolute 0.02(H) <0.01 x10(3)/mc L 09/23/2024 1:19 AM [facility] Neutrophil % 84.1 % 09/23/2024 1:19 AM [facility] Neutrophil Absolute (ANC) - Automated 16.80(H) 1.70 - 6.10 x10(3)/mc L 09/23/2024 1:19 AM [facility] Lymph % 3.4 % 09/23/2024 1:19 AM [facility] Lymph Absolute 0.67(L) 0.90 - 3.20 x10(3)/mc L 09/23/2024 1:19 AM [facility] Monocyte % 8.6 % 09/23/2024 1:19 AM [facility] Monocyte Absolute 1.72(H) 0.30 - 0.90 x10(3)/mc L 09/23/2024 1:19 AM [facility] Eos % 0.0 % 09/23/2024 1:19 AM [facility] Eos Absolute <0.04 0.00 - 0.40 x10(3)/mc L 09/23/2024 1:19 AM [facility] Basophil % 0.2 % 09/23/2024 1:19 AM [facility] Baso Absolute 0.04 0.00 - 0.10 x10(3)/mc L 09/23/2024 1:19 AM [facility] Immature Gran % 3.7 % 1:19 AM [facility] Immature Gran Absolute 0.74(H) 0.00 - 0.04 x10(3)/mc L 09/23/2024 1:19 AM [facility] Blood VENOUS BLOOD SPECIMEN / Unknown IP Care Team Draw / Unknown 09/23/2024 1:01 AM EDT 09/23/2024 1:15 AM EDT Librado Patel MD HEMATOLOGY ORDERABLE S Performing Organization Address City/[facility]/ZIP Co de Phone Number [facility] [place] [address] * (ABNORMAL) POC, GLUCOSE (09/23/2024 12:47 AM EDT) Glucometer, POC 200(H) 65 - 199 mg/dL 09/23/2024 12:[address] [facility] Comment:Supplemental ranges: <140 mg/dL before meals <180 mg/dL all other times of the day. Blood CAPILLARY BLOOD / Unknown 09/23/2024 12:47 AM EDT 09/23/2024 12:47 AM EDT Mariola Calixto MD POINT OF CARE TEST ORDERABLES Performing Organization Address [facility]/ZIP Co de Phone Number [facility] [place] [address] * POC, GLUCOSE (09/22/2024 11:40 PM EDT) Glucometer, POC 181 65 - 199 mg/dL 09/22/2024 11:[address] [facility] Comment:Supplemental ranges: <140 mg/dL before meals <180 mg/dL all other times of the day. Blood CAPILLARY BLOOD / Unknown 09/22/2024 11:40 PM EDT 09/22/2024 11:40 PM EDT Mariola Calixto MD POINT OF CARE TEST ORDERABLES Performing Organization Address [place] [facility]/ZIP Co de Phone Number [facility] [place] [address] * POC, GLUCOSE (09/22/2024 9:02 PM EDT) Glucometer, POC 159 65 - 199 mg/dL 09/22/2024 9:[address] [facility] Comment:Supplemental ranges: <140 mg/dL before meals <180 mg/dL all other times of the day. Blood CAPILLARY BLOOD / Unknown 09/22/2024 9:02 PM EDT 09/22/2024 9:02 PM EDT Mariola Calixto MD POINT OF CARE TEST ORDERABLES [facility] [place] [address] * POC, GLUCOSE (09/22/2024 7:38 PM EDT) Glucometer, POC 162 65 - 199 mg/dL 09/22/2024 7:[address] [facility] Comment:Supplemental ranges: <140 mg/dL before meals <180 mg/dL all other times of the day. Blood CAPILLARY BLOOD / Unknown 09/22/2024 7:38 PM EDT 09/22/2024 7:38 PM EDT Mariola Calixto MD POINT OF CARE TEST ORDERABLES Performing Organization Address City/[facility]/ZIP Co de Phone Number [facility] [place] [address] * POC, GLUCOSE (09/22/2024 3:52 PM EDT) Glucometer, POC 189 65 - 199 mg/dL 09/22/2024 3:[address] [facility] Comment:Supplemental ranges: <140 mg/dL before meals <180 mg/dL all other times of the day. Blood CAPILLARY BLOOD / Unknown 09/22/2024 3:52 PM EDT 09/22/2024 3:52 PM EDT Mariola Calixto MD POINT OF CARE TEST ORDERABLES [facility] [place] [address] * POC, GLUCOSE (09/22/2024 11:56 AM EDT) [facility] Glucometer, POC 181 65 - 199 mg/dL 09/22/2024 11:[address] [facility] Comment:Supplemental ranges: <140 mg/dL before meals <180 mg/dL all other times of the day. Blood CAPILLARY BLOOD / Unknown 09/22/2024 11:56 AM EDT 09/22/2024 11:57 AM EDT Mariola Calixto MD POINT OF CARE TEST ORDERABLES Performing Organization Address City/[facility]/ZIP Co de Phone Number [facility] [place] [address] * MRSA PCR Screen (09/22/2024 11:43 AM EDT) [facility] MRSA PCR Not Detected 09/22/2024 2:13 PM EDT [facility] Swab SPECIMEN FROM NASOPHARYNGEAL STRUCTURE / Unknown Non Blood Collection / Unknown 09/22/2024 11:43 AM EDT 09/22/2024 11:52 AM EDT Narrative [facility] - 09/22/2024 2:13 PM EDT This test was performed using the Xpert MRSA NxG test kit and is run on the iL[employer] GeneXpert Dx System. This test is cleared by the U.S. Food and Drug Administration for clinical use and its performance characteristics have been verified by the [facility] [employer] [facility] [employer] [facility] at [facility]. This test was performed using the Xpert MRSA NxG test kit and is run on the [employer] GeneXpert Dx System. This test is cleared by the U.S. Food and Drug Administration for clinical use and its performance characteristics have been verified by the [facility] [employer] [facility] at [facility]. Mariola Calixto MD MOLECULAR ORDERABL ES Performing Organization Address City/[facility]/ZIP Co de Phone Number [facility] [place] [address] * POC, GLUCOSE (09/22/2024 7:52 AM EDT) Glucometer, POC 178 65 - 199 mg/dL 09/22/2024 7:[address] [facility] Comment:Supplemental ranges: <140 mg/dL before meals <180 mg/dL all other times of the day. Blood CAPILLARY BLOOD / Unknown 09/22/2024 7:52 AM EDT 09/22/2024 7:52 AM EDT Mariola Calixto MD POINT OF CARE TEST ORDERABLES Performing Organization Address [facility] Co de Phone Number [facility] [place] [address] * (ABNORMAL) POC, GLUCOSE (09/22/2024 4:53 AM EDT) Glucometer, POC 204(H) 65 - 199 mg/dL 09/22/2024 4:[address] [facility] Comment:Supplemental ranges: <140 mg/dL before meals <180 mg/dL all other times of the day. Blood CAPILLARY BLOOD / Unknown 09/22/2024 4:53 AM EDT 09/22/2024 4:54 AM EDT Mariola Calixto MD POINT OF CARE TEST ORDERABLES Performing Organization Address [facility] de Phone Number [facility] [place] [address] * CT Head wo Contrast (Generic) (09/22/2024 4:02 AM EDT) WORKSTATION ID [id number] RAD Anatomical Region Laterality Modality Head Computed [...] who have questions please contact the health customer care agent that requested your imaging first. ? Electronically signed by: Armando Pan MD, [facility] ([phone]), at 09/22/2024 4:31 AM Narrative 09/22/2024 4:31 AM EDT EXAMINATION: CT [...] patients who have questions please contactthe health customer care agent that requested your imaging first. Mariola Calixto MD IMG CT ORDERABLES * Phosphorus (09/22/2024 1:26 AM EDT) Phosphorus 3.7 2.5 - 4.5 mg/dL 09/22/2024 1:[address] [facility] Blood VENOUS BLOOD SPECIMEN / Unknown IP Care Team Draw / Unknown 09/22/2024 1:26 AM EDT 09/22/2024 1:31 AM EDT Librado Patel MD CHEMISTRY ORDERABLES [facility] [place] [address] * Magnesium (09/22/2024 1:26 AM EDT) Magnesium 0.87 0.69 - 1.07 mMol/L 09/22/2024 1:[address] [facility] Blood VENOUS BLOOD SPECIMEN / Unknown IP Care Team Draw / Unknown 09/22/2024 1:26 AM EDT 09/22/2024 1:31 AM EDT Librado Patel MD CHEMISTRY ORDERABLES [facility] [place] [address] * (ABNORMAL) Basic Metabolic Panel (09/22/2024 1:26 AM EDT) Glucose 228(H) 65 - 199 mg/dL 09/22/2024 1:[address] [facility] Comment:Glucose Concentratio n >=200 mg/dL plus symptoms is consistent with Diabetes Mellitus. Blood Urea Nitrogen 26(H) 8 - 18 mg/dL 09/22/2024 1:[address] [facility] Creatinine 0.53(L) 0.70 - 1.20 mg/dL 09/22/2024 1:[address] [facility] Sodium 139 135 - 145 mMol/L 09/22/2024 1:[address] [facility] Potassium 4.0 3.5 - 5.0 mMol/L 09/22/2024 1:[address] [facility] Chloride 104 98 - 107 mMol/L 09/22/2024 1:[address] [facility] Carbon Dioxide 23 22 - 31 mMol/L 09/22/2024 1:[address] [facility] Anion Gap 12 5 - 15 mMol/L 09/22/2024 1:[address] [facility] Calcium 8.8 8.5 - 10.5 mg/dL 09/22/2024 1:[address] [facility] Est Glomerular Filtration Rate - Female 98 mL/min/1. 73 m?? 09/22/2024 1:[address] [facility] Comment: This patient's estimated GFR [...] AM EDT Librado Patel MD CHEMISTRY ORDERABLES [facility] [place] [address] * (ABNORMAL) CBC (with Diff) (09/22/2024 1:26 AM EDT) White Blood Cell 16.65(H) 4.00 - 9.50 x10(3)/mc L 09/22/2024 1:[address] [facility] Red Blood Cell 3.30(L) 4.00 - 5.21 x10(6)/mc L 09/22/2024 1:[address] [facility] Hemoglobin 9.9(L) 11.7 - 15.5 g/dL 09/22/2024 1:[address] [facility] Hematocrit 29.4(L) 35.7 - 45.8 % 09/22/2024 1:[address] [facility] Mean Cell Volume 89.1 82.6 - 94.4 fL 09/22/2024 1:[address] [facility] Mean Cell Hemoglobin 30.0 27.1 - 32.0 pg 09/22/2024 1:35 AM [facility] Mean Cell Hemoglobin Concentration 33.7 31.7 - 35.0 g/dL 09/22/2024 1:35 AM [facility] Platelet 274 145 - 357 x10(3)/mc L 09/22/2024 1:35 AM [facility] Mean Platelet Volume 11.1 7.6 - 12.9 fL 09/22/2024 1:35 AM [facility] RDW Standard Deviation 39.8 37.0 - 46.0 fL 09/22/2024 1:35 AM [facility] RDW coefficient of variation 12.3 11.5 - 14.1 % 09/22/2024 1:35 AM [facility] NRBC% auto 0.0 % 09/22/2024 1:35 AM [facility] NRBC Absolute <0.01 <0.01 x10(3)/mc L 09/22/2024 1:35 AM [facility] Neutrophil % 89.9 % 09/22/2024 1:35 AM [facility] Neutrophil Absolute (ANC) - Automated 14.97(H) 1.70 - 6.10 x10(3)/mc L 09/22/2024 1:35 AM [facility] Lymph % 3.0 % 09/22/2024 1:35 AM [facility] Lymph Absolute 0.50(L) 0.90 - 3.20 x10(3)/mc L 09/22/2024 1:35 AM [facility] Monocyte % 5.6 % 09/22/2024 1:35 AM [facility] Monocyte Absolute 0.93(H) 0.30 - 0.90 x10(3)/mc L 09/22/2024 1:35 AM [facility] Eos % 0.0 % 09/22/2024 1:35 AM [facility] Eos Absolute <0.04 0.00 - 0.40 x10(3)/mc L 09/22/2024 1:[address] [facility] Basophil % 0.1 % 09/22/2024 1:[address] [facility] Baso Absolute <0.04 0.00 - 0.10 x10(3)/mc L 09/22/2024 1:[address] [facility] Immature Gran % 1.4 % 1:[address] [facility] Immature Gran Absolute 0.23(H) 0.00 - 0.04 x10(3)/mc L 09/22/2024 1:[address] [facility] Blood VENOUS BLOOD SPECIMEN / Unknown IP Care Team Draw / Unknown 09/22/2024 1:26 AM EDT 09/22/2024 1:31 AM EDT Librado Patel MD HEMATOLOGY ORDERABLE S Performing Organization Address City/[facility]/ZIP Co de Phone Number [facility] [place] [address] * POC, GLUCOSE (09/21/2024 11:37 PM EDT) Glucometer, POC 191 65 - 199 mg/dL 09/21/2024 11:[address] [facility] Comment:Supplemental ranges: <140 mg/dL before meals <180 mg/dL all other times of the day. Blood CAPILLARY BLOOD / Unknown 09/21/2024 11:37 PM EDT 09/21/2024 11:38 PM EDT Mariola Calixto MD POINT OF CARE TEST ORDERABLES [facility] [place] [address] * POC, GLUCOSE (09/21/2024 7:52 PM EDT) Glucometer, POC 175 65 - 199 mg/dL 09/21/2024 7:[address] [facility] Comment:Supplemental ranges: <140 mg/dL before meals <180 mg/dL all other times of the day. Blood CAPILLARY BLOOD / Unknown 09/21/2024 7:52 PM EDT 09/21/2024 7:53 PM EDT Mariola Calixto MD POINT OF CARE TEST ORDERABLES Performing Organization Address [facility] Co de Phone Number [facility] [place] [address] * POC, GLUCOSE (09/21/2024 4:03 PM EDT) Glucometer, POC 165 65 - 199 mg/dL 09/21/2024 4:[address] [facility] Comment:Supplemental ranges: <140 mg/dL before meals <180 mg/dL all other times of the day. Blood CAPILLARY BLOOD / Unknown 09/21/2024 4:03 PM EDT 09/21/2024 4:03 PM EDT Mariola Calixto MD POINT OF CARE TEST ORDERABLES Performing Organization Address [facility] de Phone Number [facility] [place] [address] * XR Chest One View (09/21/2024 2:01 PM EDT) WORKSTATION ID [id number] RAD Anatomical Region Laterality Modality Chest N/A [...] who have questions please contact the health customer care agent that requested your imaging first. ? Electronically signed by: Octavio Scott MD, [facility] ??([phone]), at 09/21/2024 5:09 PM Narrative 09/21/2024 5:09 [...] patients who have questions please contactthe health customer care agent that requested your imaging first. Electronically signed by: Octavio Scott MD, [facility]([phone]), at 09/21/2024 5:09 PM Mariola Calixto MD IMG DX ORDERABLES * XR Abdomen 1 view (Generic) (09/21/2024 2:01 PM EDT) WORKSTATION ID [id number] RAD Anatomical Region Laterality Modality Abdomen N/A [...] who have questions please contact the health customer care agent that requested your imaging first. ? Electronically signed by: Shraddha Cox MD, [facility] ([phone]), at 09/21/2024 3:40 PM Narrative 09/21/2024 3:40 PM EDT EXAMINATION: XR ABDOMEN 1 VIEW (GENERIC) CLINICAL HISTORY: Verify tube placement (as entered by ordering provider in the order requisition) TECHNIQUE: Portable supine AP view of the left abdomen. ??The upper abdomen, lower abdomen, pelvis, and right lateral margin of the abdomen are excluded from the imaged [id number]. COMPARISON: 09/18/2024 FINDINGS: The lower chest and [...] of the abdomen are excluded from theimaged [id number]. COMPARISON: 09/18/2024 FINDINGS: The lower chest and [...] patients who have questions please contactthe health customer care agent that requested your imaging first. Electronically signed by: Shraddha Cox MD, [facility]([phone]), at 09/21/2024 3:40 PM Mariola Calixto MD [...] intubation status comments: First attempt by this promotion writer. Encountered lots of oral secretions with [...] - 199 mg/dL 09/21/2024 11:[address] [facility] Comment:Supplemental ranges: <140 mg/dL before meals <180 mg/dL all other times of the day. Blood CAPILLARY BLOOD / Unknown 09/21/2024 11:13 AM EDT 09/21/2024 11:13 AM EDT Mariola Calixto MD POINT OF CARE TEST ORDERABLES Performing Organization Address City/[facility]/ZIP Co de Phone Number [facility] [place] [address] * POC, GLUCOSE (09/21/2024 7:46 AM EDT) Glucometer, POC 167 65 - 199 mg/dL 09/21/2024 7:[address] [facility] Comment:Supplemental ranges: <140 mg/dL before meals <180 mg/dL all other times of the day. Blood CAPILLARY BLOOD / Unknown 09/21/2024 7:46 AM EDT 09/21/2024 7:47 AM EDT Mariola Calixto MD POINT OF CARE TEST ORDERABLES [facility] [place] [address] * POC, GLUCOSE (09/21/2024 7:26 AM EDT) Glucometer, POC 166 65 - 199 mg/dL 09/21/2024 7:[address] [facility] Comment:Supplemental ranges: <140 mg/dL before meals <180 mg/dL all other times of the day. Blood CAPILLARY BLOOD / Unknown 09/21/2024 7:26 AM EDT 09/21/2024 7:27 AM EDT Mariola Calixto MD POINT OF CARE TEST ORDERABLES Performing Organization Address [facility] Co de Phone Number [facility] [place] [address] * POC, GLUCOSE (09/21/2024 4:53 AM EDT) Glucometer, POC 176 65 - 199 mg/dL 09/21/2024 4:[address] [facility] Comment:Supplemental ranges: <140 mg/dL before meals <180 mg/dL all other times of the day. Blood CAPILLARY BLOOD / Unknown 09/21/2024 4:53 AM EDT 09/21/2024 4:54 AM EDT Mariola Calixto MD POINT OF CARE TEST ORDERABLES Performing Organization Address [facility] Co de Phone Number [facility] [place] [address] * CT Head wo Contrast (Generic) (09/21/2024 3:50 AM EDT) WORKSTATION ID [id number] DH RAD Anatomical Region Laterality Modality Head [...] who have questions please contact the health customer care agent that requested your imaging first. ? Electronically signed by: Armando Pan MD, [facility] ([phone]), at 09/21/2024 4:55 AM Narrative 09/21/2024 4:55 AM EDT EXAMINATION: CT [...] patients who have questions please contactthe health customer care agent that requested your imaging first. Mariola Calixto MD IMG CT ORDERABLES * Phosphorus (09/21/2024 12:21 AM EDT) Pathologist [facility] Phosphorus 3.2 2.5 - 4.5 mg/dL 09/21/2024 1:[address] [facility] Blood VENOUS BLOOD SPECIMEN / Unknown IP Care Team Draw / Unknown 09/21/2024 12:21 AM EDT 09/21/2024 12:37 AM EDT Librado Patel MD CHEMISTRY ORDERABLES [facility] [place] [address] * Magnesium (09/21/2024 12:21 AM EDT) Magnesium 0.91 0.69 - 1.07 mMol/L 09/21/2024 1:06 AM [facility] Blood VENOUS BLOOD SPECIMEN / Unknown IP Care Team Draw / Unknown 09/21/2024 12:21 AM EDT 09/21/2024 12:37 AM EDT Librado Patel MD CHEMISTRY ORDERABLES [facility] [place] [address] * (ABNORMAL) Basic Metabolic Panel (09/21/2024 12:21 AM EDT) Glucose 185 65 - 199 mg/dL 09/21/2024 1:06 AM [facility] Comment:Glucose Concentratio n >=200 mg/dL plus symptoms is consistent with Diabetes Mellitus. Blood Urea Nitrogen 30(H) 8 - 18 mg/dL 09/21/2024 1:06 AM [facility] Creatinine 0.54(L) 0.70 - 1.20 mg/dL 09/21/2024 1:06 AM [facility] Sodium 141 135 - 145 mMol/L 09/21/2024 1:06 AM [facility] Potassium 4.2 3.5 - 5.0 mMol/L 09/21/2024 1:06 AM [facility] Chloride 107 98 - 107 mMol/L 09/21/2024 1:06 AM [facility] Carbon Dioxide 23 22 - 31 mMol/L 09/21/2024 1:06 AM [facility] Anion Gap 11 5 - 15 mMol/L 09/21/2024 1:06 AM [facility] Calcium 8.6 8.5 - 10.5 mg/dL 09/21/2024 1:06 AM [facility] Est Glomerular Filtration Rate - Female 98 mL/min/1. 73 m?? 09/21/2024 1:06 AM [facility] Comment: This patient's estimated GFR [...] AM EDT 09/21/2024 12:37 AM EDT Librado Ptael MD CHEMISTRY ORDERABLES [facility] [place] [address] * (ABNORMAL) CBC (with Diff) (09/21/2024 12:21 AM EDT) White Blood Cell 14.84(H) 4.00 - 9.50 x10(3)/mc L 09/21/2024 12:[address] [facility] Red Blood Cell 3.02(L) 4.00 - 5.21 x10(6)/mc L 09/21/2024 12:[address] [facility] Hemoglobin 8.9(L) 11.7 - 15.5 g/dL 09/21/2024 12:[address] [facility] Hematocrit 27.2(L) 35.7 - 45.8 % 09/21/2024 12:[address] [facility] Mean Cell Volume 90.1 82.6 - 94.4 fL 09/21/2024 12:42 AM [facility] Mean Cell Hemoglobin 29.5 27.1 - 32.0 pg 09/21/2024 12:42 AM [facility] Mean Cell Hemoglobin Concentration 32.7 31.7 - 35.0 g/dL 09/21/2024 12:42 AM [facility] Platelet 217 145 - 357 x10(3)/mc L 09/21/2024 12:42 AM [facility] Mean Platelet Volume 11.1 7.6 - 12.9 fL 09/21/2024 12:42 AM [facility] RDW Standard Deviation 39.2 37.0 - 46.0 fL 09/21/2024 12:42 AM [facility] RDW coefficient of variation 12.2 11.5 - 14.1 % 09/21/2024 12:42 AM [facility] NRBC% auto 0.0 % 09/21/2024 12:42 AM [facility] NRBC Absolute <0.01 <0.01 x10(3)/mc L 09/21/2024 12:42 AM [facility] Neutrophil % 86.5 % 09/21/2024 12:42 AM [facility] Neutrophil Absolute (ANC) - Automated 12.84(H) 1.70 - 6.10 x10(3)/mc L 09/21/2024 12:42 AM [facility] Lymph % 5.9 % 09/21/2024 12:42 AM [facility] Lymph Absolute 0.87(L) 0.90 - 3.20 x10(3)/mc L 09/21/2024 12:42 AM [facility] Monocyte % 6.6 % 09/21/2024 12:42 AM [facility] Monocyte Absolute 0.98(H) 0.30 - 0.90 x10(3)/mc L 09/21/2024 12:42 AM [facility] Eos % 0.0 % 09/21/2024 12:42 AM [facility] Eos Absolute <0.04 0.00 - 0.40 x10(3)/mc L 09/21/2024 12:42 AM [facility] Basophil % 0.1 % 09/21/2024 12:[address] [facility] Baso Absolute <0.04 0.00 - 0.10 x10(3)/mc L 09/21/2024 12:[address] [facility] Immature Gran % 0.9 % 12:[address] [facility] Immature Gran Absolute 0.14(H) 0.00 - 0.04 x10(3)/mc L 09/21/2024 12:[address] [facility] Blood VENOUS BLOOD SPECIMEN / Unknown IP Care Team Draw / Unknown 09/21/2024 12:21 AM EDT 09/21/2024 12:37 AM EDT Librado Patel MD HEMATOLOGY ORDERABLE S [facility] [place] [address] * POC, GLUCOSE (09/21/2024 12:20 AM EDT) Glucometer, POC 190 65 - 199 mg/dL 09/21/2024 12:[address] [facility] Comment:Supplemental ranges: <140 mg/dL before meals <180 mg/dL all other times of the day. Blood CAPILLARY BLOOD / Unknown 09/21/2024 12:20 AM EDT 09/21/2024 12:21 AM EDT Mariola Calixto MD POINT OF CARE TEST ORDERABLES [facility] [place] [address] * POC, GLUCOSE (09/20/2024 9:46 PM EDT) Glucometer, POC 195 65 - 199 mg/dL 09/20/2024 9:[address] [facility] Comment:Supplemental ranges: <140 mg/dL before meals <180 mg/dL all other times of the day. Blood CAPILLARY BLOOD / Unknown 09/20/2024 9:46 PM EDT 09/20/2024 9:47 PM EDT Mariola Calixto MD POINT OF CARE TEST ORDERABLES Performing Organization Address City/[facility]/ZIP Co de Phone Number [facility] [place] [address] * POC, GLUCOSE (09/20/2024 3:57 PM EDT) Glucometer, POC 196 65 - 199 mg/dL 09/20/2024 3:[address] [facility] Comment:Supplemental ranges: <140 mg/dL before meals <180 mg/dL all other times of the day. Blood CAPILLARY BLOOD / Unknown 09/20/2024 3:57 PM EDT 09/20/2024 3:58 PM EDT Mariola Calixto MD POINT OF CARE TEST ORDERABLES Performing Organization Address [facility]/ZIP Co de Phone Number [facility] [place] [place] [address] * POC, GLUCOSE (09/20/2024 11:55 AM EDT) Glucometer, POC 183 65 - 199 mg/dL 09/20/2024 11:[address] [facility] Comment:Supplemental ranges: <140 mg/dL before meals <180 mg/dL all other times of the day. Blood CAPILLARY BLOOD / Unknown 09/20/2024 11:55 AM EDT 09/20/2024 11:56 AM EDT Mariola Calixto MD POINT OF CARE TEST ORDERABLES [facility] [place] [address] * Duplex Study for DVT, Bilat legs (09/20/2024 11:29 AM EDT) VB Text Report Department: Vascular Surgery Lab Patient: [id number] (LUCERO BRUNO) CPT: 99842 Referring Physician: LIZA LOVE ?? Phone: Indications: [...] Love APRN VASCULAR ORDERABLES Performing Organization Address [facility] Co de Phone Number [id number] * POC, GLUCOSE (09/20/2024 9:50 AM EDT) Glucometer, POC 189 65 - 199 mg/dL 09/20/2024 9:[address] [facility] Comment:Supplemental ranges: <140 mg/dL before meals <180 mg/dL all other times of the day. Blood CAPILLARY BLOOD / Unknown 09/20/2024 9:50 AM EDT 09/20/2024 9:51 AM EDT Mariola Calixto MD POINT OF CARE TEST ORDERABLES Performing Organization Address City/[facility]/ZIP Co de Phone Number [facility] [place] [place] [address] * POC, GLUCOSE (09/20/2024 7:53 AM EDT) Glucometer, POC 179 65 - 199 mg/dL 09/20/2024 7:[address] [facility] Comment:Supplemental ranges: <140 mg/dL before meals <180 mg/dL all other times of the day. Blood CAPILLARY BLOOD / Unknown 09/20/2024 7:53 AM EDT 09/20/2024 7:53 AM EDT Mariola Calixto MD POINT OF CARE TEST ORDERABLES [facility] [place] [address] * POC, GLUCOSE (09/20/2024 3:53 AM EDT) Glucometer, POC 195 65 - 199 mg/dL 09/20/2024 3:[address] [facility] Comment:Supplemental ranges: <140 mg/dL before meals <180 mg/dL all other times of the day. Blood CAPILLARY BLOOD / Unknown 09/20/2024 3:53 AM EDT 09/20/2024 3:54 AM EDT Serenity Espinosa MD POINT OF CARE TEST O RDERABLES [facility] [place] [address] * POC, GLUCOSE (09/20/2024 12:09 AM EDT) Glucometer, POC 182 65 - 199 mg/dL 09/20/2024 12:[address] [facility] Comment:Supplemental ranges: <140 mg/dL before meals <180 mg/dL all other times of the day. Blood CAPILLARY BLOOD / Unknown 09/20/2024 12:09 AM EDT 09/20/2024 12:09 AM EDT Serenity Espinosa MD POINT OF CARE TEST O RDERABLES [facility] [place] [address] * Triglyceride (09/20/2024 12:09 AM EDT) Triglyceride 95 mg/dL 09/20/2024 12:[address] [facility] Comment: Normal: <150 mg/dL Borderline High: 150-199 mg/dL High: 200-499 mg/dL Very High: > or =500 mg/dL Blood VENOUS BLOOD SPECIMEN / Unknown IP Care Team Draw / Unknown 09/20/2024 12:09 AM EDT 09/20/2024 12:14 AM EDT Liza Love APRN CHEMISTRY ORDERABLES Performing Organization Address City/[facility]/ZIP Co de Phone Number [facility] [place] [address] * Phosphorus (09/20/2024 12:09 AM EDT) Phosphorus 2.9 2.5 - 4.5 mg/dL 09/20/2024 12:[address] [facility] Blood VENOUS BLOOD SPECIMEN / Unknown IP Care Team Draw / Unknown 09/20/2024 12:09 AM EDT 09/20/2024 12:14 AM EDT Librado Patel MD CHEMISTRY ORDERABLES [facility] [place] [address] * Magnesium (09/20/2024 12:09 AM EDT) Magnesium 0.88 0.69 - 1.07 mMol/L 09/20/2024 12:[address] [facility] Blood VENOUS BLOOD SPECIMEN / Unknown IP Care Team Draw / Unknown 09/20/2024 12:09 AM EDT 09/20/2024 12:14 AM EDT Librado Patel MD CHEMISTRY ORDERABLES [facility] [place] [place] [address] * (ABNORMAL) Basic Metabolic Panel (09/20/2024 12:09 AM EDT) Glucose 187 65 - 199 mg/dL 09/20/2024 12:[address] [facility] Comment:Glucose Concentratio n >=200 mg/dL plus symptoms is consistent with Diabetes Mellitus. Blood Urea Nitrogen 23(H) 8 - 18 mg/dL 09/20/2024 12:51 AM [facility] Creatinine 0.52(L) 0.70 - 1.20 mg/dL 09/20/2024 12:51 AM [facility] Sodium 139 135 - 145 mMol/L 09/20/2024 12:51 AM [facility] Potassium 4.2 3.5 - 5.0 mMol/L 09/20/2024 12:51 AM [facility] Chloride 107 98 - 107 mMol/L 09/20/2024 12:51 AM [facility] Carbon Dioxide 22 22 - 31 mMol/L 09/20/2024 12:51 AM [facility] Anion Gap 10 5 - 15 mMol/L 09/20/2024 12:51 AM [facility] Calcium 8.4(L) 8.5 - 10.5 mg/dL 09/20/2024 12:51 AM [facility] Est Glomerular Filtration Rate - Female 99 mL/min/1. 73 m?? 09/20/2024 12:51 AM [facility] Comment: This patient's estimated GFR [...] AM EDT Librado Patel MD CHEMISTRY ORDERABLES [facility] [place] [address] * (ABNORMAL) CBC (with Diff) (09/20/2024 12:09 AM EDT) White Blood Cell 13.82(H) 4.00 - 9.50 x10(3)/mc L 09/20/2024 12:35 AM [facility] Red Blood Cell 3.01(L) 4.00 - 5.21 x10(6)/mc L 09/20/2024 12:35 AM [facility] Hemoglobin 8.9(L) 11.7 - 15.5 g/dL 09/20/2024 12:35 AM [facility] Hematocrit 26.9(L) 35.7 - 45.8 % 09/20/2024 12:35 AM [facility] Mean Cell Volume 89.4 82.6 - 94.4 fL 09/20/2024 12:35 AM [facility] Mean Cell Hemoglobin 29.6 27.1 - 32.0 pg 09/20/2024 12:35 AM [facility] Mean Cell Hemoglobin Concentration 33.1 31.7 - 35.0 g/dL 09/20/2024 12:35 AM [facility] Platelet 191 145 - 357 x10(3)/mc L 09/20/2024 12:35 AM [facility] Mean Platelet Volume 11.1 7.6 - 12.9 fL 09/20/2024 12:35 AM [facility] RDW Standard Deviation 41.0 37.0 - 46.0 fL 09/20/2024 12:35 AM [facility] RDW coefficient of variation 12.6 11.5 - 14.1 % 09/20/2024 12:35 AM [facility] NRBC% auto 0.0 % 09/20/2024 12:35 AM [facility] NRBC Absolute <0.01 <0.01 x10(3)/mc L 09/20/2024 12:35 AM [facility] Neutrophil % 90.2 % 09/20/2024 12:35 AM [facility] Neutrophil Absolute (ANC) - Automated 12.48(H) 1.70 - 6.10 x10(3)/mc L 09/20/2024 12:35 AM [facility] Lymph % 4.7 % 09/20/2024 12:35 AM [facility] Lymph Absolute 0.65(L) 0.90 - 3.20 x10(3)/mc L 09/20/2024 12:35 AM [facility] Monocyte % 4.3 % 09/20/2024 12:35 AM [facility] Monocyte Absolute 0.59 0.30 - 0.90 x10(3)/mc L 09/20/2024 12:35 AM [facility] Eos % 0.0 % 09/20/2024 12:35 AM [facility] Eos Absolute <0.04 0.00 - 0.40 x10(3)/mc L 09/20/2024 12:35 AM [facility] Basophil % 0.1 % 09/20/2024 12:35 AM [facility] Baso Absolute <0.04 0.00 - 0.10 x10(3)/mc L 09/20/2024 12:[address] [facility] Immature Gran % 0.7 % 12:[address] [facility] Immature Gran Absolute 0.09(H) 0.00 - 0.04 x10(3)/mc L 09/20/2024 12:[address] [facility] Blood VENOUS BLOOD SPECIMEN / Unknown IP Care Team Draw / Unknown 09/20/2024 12:09 AM EDT 09/20/2024 12:14 AM EDT Librado Patel MD HEMATOLOGY ORDERABLE S Performing Organization Address City/[facility]/ZIP Co de Phone Number [facility] [place] [address] * POC, GLUCOSE (09/19/2024 7:36 PM EDT) Glucometer, POC 175 65 - 199 mg/dL 09/19/2024 7:[address] [facility] Comment:Supplemental ranges: <140 mg/dL before meals <180 mg/dL all other times of the day. Blood CAPILLARY BLOOD / Unknown 09/19/2024 7:36 PM EDT 09/19/2024 7:36 PM EDT Serenity Espinosa MD POINT OF CARE TEST O RDERABLES Performing Organization Address City/[facility]/ZIP Co de Phone Number 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 Numerous small foci of decreased acute infarction both along and separate from the site of hemorrhage. These foci are present in both cerebral hemispheres and have a pattern most consistent with embolic infarction. No evidence of NEON MOLDER malignancy Thank you for letting us participate in the care of this patient. ??If you are a health care provider and have any questions regarding this report, please contact the number below. ??For patients who have questions please contact the health customer care agent that requested your imaging first. ? Electronically signed by: Rios Swartz MD, [facility] ([phone]), at 09/20/2024 8:24 AM Narrative 09/20/2024 8:24 [...] consistent with embolic infarction. No evidence of NEON MOLDER malignancy Thank you for letting us participate in the care of this patient. If youare a health care provider and have any questions regarding this report,please contact the number below. For patients who have questions please contactthe health customer care agent that requested your imaging first. Electronically signed by: Rios Swartz MD, [facility]([phone]), at 09/20/2024 8:24 AM Neelam Gill APRN IMG MRI ORDERABLES * POC, GLUCOSE (09/19/2024 3:30 PM EDT) [facility] Glucometer, POC 181 65 - 199 mg/dL 09/19/2024 3:[address] [facility] Comment:Supplemental ranges: <140 mg/dL before meals <180 mg/dL all other times of the day. Blood CAPILLARY BLOOD / Unknown 09/19/2024 3:30 PM EDT 09/19/2024 3:30 PM EDT Serenity Espinosa MD POINT OF CARE TEST O RDERABLES Performing Organization Address City/[facility] Co de Phone Number [facility] [place] [address] * POC, GLUCOSE (09/19/2024 12:34 PM EDT) Glucometer, POC 174 65 - 199 mg/dL 09/19/2024 12:[address] [facility] Comment:Supplemental ranges: <140 mg/dL before meals <180 mg/dL all other times of the day. Blood CAPILLARY BLOOD / Unknown 09/19/2024 12:34 PM EDT 09/19/2024 12:34 PM EDT Serenity Espinosa MD POINT OF CARE TEST O RDERAASHLIE Performing Organization Address [facility] Co de Phone Number [facility] [place] [address] * POC, GLUCOSE (09/19/2024 7:35 AM EDT) Glucometer, POC 134 65 - 199 mg/dL 09/19/2024 7:[address] [facility] Comment:Supplemental ranges: <140 mg/dL before meals <180 mg/dL all other times of the day. Blood CAPILLARY BLOOD / Unknown 09/19/2024 7:35 AM EDT 09/19/2024 7:35 AM EDT Serenity Espinosa MD POINT OF CARE TEST O RDERABLES Performing Organization Address City/[facility]/ZIP Co de Phone Number [facility] [place] [address] * POC, GLUCOSE (09/19/2024 4:23 AM EDT) Glucometer, POC 131 65 - 199 mg/dL 09/19/2024 4:[address] [facility] Comment:Supplemental ranges: <140 mg/dL before meals <180 mg/dL all other times of the day. Blood CAPILLARY BLOOD / Unknown 09/19/2024 4:23 AM EDT 09/19/2024 4:24 AM EDT Serenity Espinosa MD POINT OF CARE TEST O RDERABLES [facility] [place] [address] * POC, GLUCOSE (09/19/2024 1:00 AM EDT) Glucometer, POC 163 65 - 199 mg/dL 09/19/2024 1:[address] [facility] Comment:Supplemental ranges: <140 mg/dL before meals <180 mg/dL all other times of the day. Blood CAPILLARY BLOOD / Unknown 09/19/2024 1:00 AM EDT 09/19/2024 1:00 AM EDT Serenity Espinosa MD POINT OF CARE TEST O ALDO [facility] [place] [address] * (ABNORMAL) Phosphorus (09/19/2024 12:55 AM EDT) Phosphorus 1.7(L) 2.5 - 4.5 mg/dL 09/19/2024 1:[address] [facility] Blood VENOUS BLOOD SPECIMEN / Unknown IP Care Team Draw / Unknown 09/19/2024 12:55 AM EDT 09/19/2024 1:05 AM EDT Librado Patel MD CHEMISTRY ORDERABLES [facility] [place] [address] * Magnesium (09/19/2024 12:55 AM EDT) Pathologist [facility] Magnesium 0.77 0.69 - 1.07 mMol/L 09/19/2024 1:[address] [facility] Blood VENOUS BLOOD SPECIMEN / Unknown IP Care Team Draw / Unknown 09/19/2024 12:55 AM EDT 09/19/2024 1:05 AM EDT Librado Patel MD CHEMISTRY ORDERABLES Performing Organization Address [facility]/ZIP Co de Phone Number [facility] [place] [address] * (ABNORMAL) Basic Metabolic Panel (09/19/2024 12:55 AM EDT) Pathologist [facility] Glucose 164 65 - 199 mg/dL 09/19/2024 1:[address] [facility] Comment:Glucose Concentratio n >=200 mg/dL plus symptoms is consistent with Diabetes Mellitus. Blood Urea Nitrogen 17 8 - 18 mg/dL 09/19/2024 1:[address] [facility] Creatinine 0.49(L) 0.70 - 1.20 mg/dL 09/19/2024 1:[address] [facility] Sodium 140 135 - 145 mMol/L 09/19/2024 1:[address] [facility] Potassium 3.6 3.5 - 5.0 mMol/L 09/19/2024 1:[address] [facility] Chloride 110(H) 98 - 107 mMol/L 09/19/2024 1:[address] [facility] Carbon Dioxide 21(L) 22 - 31 mMol/L 09/19/2024 1:[address] [facility] Anion Gap 9 5 - 15 mMol/L 09/19/2024 1:[address] [facility] Calcium 8.2(L) 8.5 - 10.5 mg/dL 09/19/2024 1:[address] [facility] Est Glomerular Filtration Rate - Female 100 mL/min/1. 73 m?? 09/19/2024 1:[address] [facility] Comment: This patient's estimated GFR [...] AM EDT Librado Patel MD CHEMISTRY ORDERABLES [facility] [place] [address] * (ABNORMAL) CBC (with Diff) (09/19/2024 12:55 AM EDT) White Blood Cell 18.90(H) 4.00 - 9.50 x10(3)/mc L 09/19/2024 1:[address] [facility] Red Blood Cell 3.00(L) 4.00 - 5.21 x10(6)/mc L 09/19/2024 1:[address] [facility] Hemoglobin 8.9(L) 11.7 - 15.5 g/dL 09/19/2024 1:[address] [facility] Hematocrit 27.1(L) 35.7 - 45.8 % 09/19/2024 1:[address] [facility] Mean Cell Volume 90.3 82.6 - 94.4 fL 09/19/2024 1:10 AM [facility] Mean Cell Hemoglobin 29.7 27.1 - 32.0 pg 09/19/2024 1:10 AM [facility] Mean Cell Hemoglobin Concentration 32.8 31.7 - 35.0 g/dL 09/19/2024 1:10 AM [facility] Platelet 204 145 - 357 x10(3)/mc L 09/19/2024 1:10 AM [facility] Mean Platelet Volume 10.5 7.6 - 12.9 fL 09/19/2024 1:10 AM [facility] RDW Standard Deviation 43.1 37.0 - 46.0 fL 09/19/2024 1:10 AM [facility] RDW coefficient of variation 13.1 11.5 - 14.1 % 09/19/2024 1:10 AM [facility] NRBC% auto 0.0 % 09/19/2024 1:10 AM [facility] NRBC Absolute <0.01 <0.01 x10(3)/mc L 09/19/2024 1:10 AM [facility] Neutrophil % 81.5 % 09/19/2024 1:10 AM [facility] Neutrophil Absolute (ANC) - Automated 15.41(H) 1.70 - 6.10 x10(3)/mc L 09/19/2024 1:10 AM [facility] Lymph % 8.9 % 09/19/2024 1:10 AM [facility] Lymph Absolute 1.69 0.90 - 3.20 x10(3)/mc L 09/19/2024 1:10 AM [facility] Monocyte % 8.7 % 09/19/2024 1:10 AM [facility] Monocyte Absolute 1.64(H) 0.30 - 0.90 x10(3)/mc L 09/19/2024 1:[address] [facility] Eos % 0.1 % 09/19/2024 1:[address] [facility] Eos Absolute <0.04 0.00 - 0.40 x10(3)/mc L 09/19/2024 1:[address] [facility] Basophil % 0.2 % 09/19/2024 1:[address] [facility] Baso Absolute <0.04 0.00 - 0.10 x10(3)/mc L 09/19/2024 1:[address] [facility] Immature Gran % 0.6 % 1:[address] [facility] Immature Gran Absolute 0.11(H) 0.00 - 0.04 x10(3)/mc L 09/19/2024 1:[address] [facility] Blood VENOUS BLOOD SPECIMEN / Unknown IP Care Team Draw / Unknown 09/19/2024 12:55 AM EDT 09/19/2024 1:05 AM EDT Librado Patel MD HEMATOLOGY ORDERABLE S [facility] [place] [address] * POC, GLUCOSE (09/18/2024 8:13 PM EDT) [facility] Signature Glucometer, POC 148 65 - 199 mg/dL 09/18/2024 8:[address] [facility] Comment:Supplemental ranges: <140 mg/dL before meals <180 mg/dL all other times of the day. Blood CAPILLARY BLOOD / Unknown 09/18/2024 8:13 PM EDT 09/18/2024 8:13 PM EDT Serenity Espinosa MD POINT OF CARE TEST O RDERABLES [facility] [place] [address] * POC, GLUCOSE (09/18/2024 4:26 PM EDT) Glucometer, POC 152 65 - 199 mg/dL 09/18/2024 4:[address] [facility] Comment:Supplemental ranges: <140 mg/dL before meals <180 mg/dL all other times of the day. Blood CAPILLARY BLOOD / Unknown 09/18/2024 4:26 PM EDT 09/18/2024 4:27 PM EDT Serenity Espinosa MD POINT OF CARE TEST O RDERABLES Performing Organization Address City/[facility]/ZIP Co de Phone Number [facility] [place] [address] * Lower Respiratory Culture (09/18/2024 2:44 PM EDT) Lower Respiratory Culture Rare mixed bacterial morphotypes suggestive of normal upper respiratory franco 09/20/2024 11:[address] [facility] Gram Stain Many Neutrophils seen 09/20/2024 11:[address] [facility] Gram Stain No squamous epithelial cells 09/20/2024 11:[address] [facility] Gram Stain No microorganisms seen 09/20/2024 11:[address] [facility] Bronchial Alveolar Lavage SPECIMEN FROM BRONCHUS / Unknown Non Blood Collection / Unknown 09/18/2024 2:44 PM EDT 09/18/2024 3:02 PM EDT Neelam Gill APRN MICROBIOLOGY - GENER AL ORDERABLES [facility] [place] [address] * Blood culture (09/18/2024 12:47 PM EDT) Blood Culture No growth at 120 hours 09/23/2024 2:[address] [facility] Blood VENOUS BLOOD SPECIMEN / Unknown IP Care Team Draw / Unknown 09/18/2024 12:47 PM EDT 09/18/2024 12:50 PM EDT Neelam Gill APRN MICROBIOLOGY - BLOOD ORDERABLES Performing Organization Address [facility] Co de Phone Number [facility] [place] [address] * Blood culture (09/18/2024 12:47 PM EDT) Blood Culture No growth at 120 hours 09/23/2024 2:[address] [facility] Blood VENOUS BLOOD SPECIMEN / Unknown IP Care Team Draw / Unknown 09/18/2024 12:47 PM EDT 09/18/2024 12:50 PM EDT Neelam Gill APRN MICROBIOLOGY - BLOOD ORDERABLES Performing Organization Address [facility] de Phone Number [facility] [place] [address] * XR Abdomen 1 view (Generic) (09/18/2024 12:31 PM EDT) WORKSTATION ID [id number] RAD Anatomical Region Laterality Modality Abdomen N/A [...] who have questions please contact the health customer care agent that requested your imaging first. ? Electronically signed by: Arie Bhat [facility] ([phone]), at 09/18/2024 1:05 PM Narrative 09/18/2024 1:05 PM EDT EXAMINATION: XR [...] patients who have questions please contactthe health customer care agent that requested your imaging first. Electronically signed by: Arie Bhat [facility]([phone]), at 09/18/2024 1:05 PM Neelam Gill APRN IMG DX ORDERABLES * POC, GLUCOSE (09/18/2024 12:10 PM EDT) [facility] Glucometer, POC 141 65 - 199 mg/dL 09/18/2024 12:[address] [facility] Comment:Supplemental ranges: <140 mg/dL before meals <180 mg/dL all other times of the day. Blood CAPILLARY BLOOD / Unknown 09/18/2024 12:10 PM EDT 09/18/2024 12:11 PM EDT Serenity Espinosa MD POINT OF CARE TEST O RDERABLES [facility] [place] [address] * XR Chest One View (09/18/2024 8:43 AM EDT) WORKSTATION ID [id number] RAD Anatomical Region Laterality Modality Chest N/A [...] who have questions please contact the health customer care agent that requested your imaging first. ? Electronically signed by: Arie Bhat [facility] ([phone]), at 09/18/2024 9:29 AM Narrative 09/18/2024 9:29 AM EDT EXAMINATION: XR [...] patients who have questions please contactthe health customer care agent that requested your imaging first. Electronically signed by: Arie Bhat [facility]([phone]), at 09/18/2024 9:29 AM Neelam Gill APRN IMG DX ORDERABLES * POC, GLUCOSE (09/18/2024 7:47 AM EDT) [facility] Signature Glucometer, POC 141 65 - 199 mg/dL 09/18/2024 7:[address] [facility] Comment:Supplemental ranges: <140 mg/dL before meals <180 mg/dL all other times of the day. Blood CAPILLARY BLOOD / Unknown 09/18/2024 7:47 AM EDT 09/18/2024 7:48 AM EDT Serenity Espinosa MD POINT OF CARE TEST O RDERABLES [facility] [place] [address] * Sodium (09/18/2024 6:15 AM EDT) Sodium 142 135 - 145 mMol/L 09/18/2024 2:[address] [facility] Blood VENOUS BLOOD SPECIMEN / Unknown IP Care Team Draw / Unknown 09/18/2024 6:15 AM EDT 09/18/2024 6:21 AM EDT Neelam Gill APRN CHEMISTRY ORDERABLES [facility] [place] [address] * Potassium (09/18/2024 6:15 AM EDT) Potassium 4.0 3.5 - 5.0 mMol/L 09/18/2024 6:[address] [facility] Blood VENOUS BLOOD SPECIMEN / Unknown IP Care Team Draw / Unknown 09/18/2024 6:15 AM EDT 09/18/2024 6:21 AM EDT Serenity Espinosa MD CHEMISTRY ORDERABLES [facility] [place] [address] * APTT (09/18/2024 6:15 AM EDT) Partial Thromboplastin Time 25 25 - 37 sec 09/18/2024 7:[address] [facility] Blood VENOUS BLOOD SPECIMEN / Unknown IP Care Team Draw / Unknown 09/18/2024 6:15 AM EDT 09/18/2024 7:05 AM EDT Serenity Espinosa MD HEMATOLOGY ORDERABLE S [facility] [place] [address] * Prothrombin Time (09/18/2024 6:15 AM EDT) Prothrombin Time 12.3 9.4 - 12.5 sec 09/18/2024 7:[address] [facility] International Normalization Ratio 1.1 <=4.9 09/18/2024 7:[address] [facility] Comment: An INR < 2.0 [...] MD HEMATOLOGY ORDERABLE S Performing Organization Address City/[facility]/ZIP Co de Phone Number [facility] [place] [address] * POC, GLUCOSE (09/18/2024 4:37 AM EDT) [facility] Glucometer, POC 157 65 - 199 mg/dL 09/18/2024 4:[address] [facility] Comment:Supplemental ranges: <140 mg/dL before meals <180 mg/dL all other times of the day. Blood CAPILLARY BLOOD / Unknown 09/18/2024 4:37 AM EDT 09/18/2024 4:38 AM EDT Serenity Espinosa MD POINT OF CARE TEST O RDERABLES [facility] [place] [address] * Scan, Peripheral Blood (09/18/2024 12:20 AM EDT) RBC Morphology Normal 09/18/2024 1:[address] [facility] Platelet Estimate Normal Normal 09/18/2024 1:[address] [facility] Blood VENOUS BLOOD SPECIMEN / Unknown IP Care Team Draw / Unknown 09/18/2024 12:20 AM EDT 09/18/2024 12:28 AM EDT Jah Altman APRN HEMATOLOGY ORDERAB LES Performing Organization Address City/[facility]/ZIP Co de Phone Number [facility] [place] [address] * (ABNORMAL) Phosphorus (09/18/2024 12:20 AM EDT) Phosphorus 2.4(L) 2.5 - 4.5 mg/dL 09/18/2024 12:[address] [facility] Blood VENOUS BLOOD SPECIMEN / Unknown IP Care Team Draw / Unknown 09/18/2024 12:20 AM EDT 09/18/2024 12:28 AM EDT Librado Patel MD CHEMISTRY ORDERABLES Performing Organization Address City/[facility]/ZIP Co de Phone Number [facility] [place] [address] * Magnesium (09/18/2024 12:20 AM EDT) Pathologist [facility] Magnesium 0.81 0.69 - 1.07 mMol/L 09/18/2024 12:[address] [facility] Blood VENOUS BLOOD SPECIMEN / Unknown IP Care Team Draw / Unknown 09/18/2024 12:20 AM EDT 09/18/2024 12:28 AM EDT Librado Patel MD CHEMISTRY ORDERABLES Performing Organization Address City/[facility]/ZIP Co de Phone Number [facility] [place] [address] * (ABNORMAL) Basic Metabolic Panel (09/18/2024 12:20 AM EDT) Glucose 186 65 - 199 mg/dL 09/18/2024 1:[address] [facility] Comment:Glucose Concentratio n >=200 mg/dL plus symptoms is consistent with Diabetes Mellitus. Blood Urea Nitrogen 15 8 - 18 mg/dL 09/18/2024 1:19 AM [facility] Creatinine 0.57(L) 0.70 - 1.20 mg/dL 09/18/2024 1:19 AM [facility] Sodium 141 135 - 145 mMol/L 09/18/2024 1:19 AM [facility] Potassium 3.6 3.5 - 5.0 mMol/L 09/18/2024 1:19 AM [facility] Chloride 108(H) 98 - 107 mMol/L 09/18/2024 1:19 AM [facility] Carbon Dioxide 22 22 - 31 mMol/L 09/18/2024 1:19 AM [facility] Anion Gap 11 5 - 15 mMol/L 09/18/2024 1:19 AM [facility] Calcium 8.2(L) 8.5 - 10.5 mg/dL 09/18/2024 1:19 AM [facility] Est Glomerular Filtration Rate - Female 97 mL/min/1. 73 m?? 09/18/2024 1:19 AM [facility] Comment: This patient's estimated GFR [...] AM EDT Librado Patel MD CHEMISTRY ORDERABLES [facility] [place] [address] * (ABNORMAL) CBC (with Diff) (09/18/2024 12:20 AM EDT) White Blood Cell 20.04(H) 4.00 - 9.50 x10(3)/mc L 09/18/2024 1:[address] [facility] Red Blood Cell 3.37(L) 4.00 - 5.21 x10(6)/mc L 09/18/2024 1:[address] [facility] Hemoglobin 10.2(L) 11.7 - 15.5 g/dL 09/18/2024 1:08 AM [facility] Hematocrit 30.3(L) 35.7 - 45.8 % 09/18/2024 1:[address] [facility] Mean Cell Volume 89.9 82.6 - 94.4 fL 09/18/2024 1:[address] [facility] Mean Cell Hemoglobin 30.3 27.1 - 32.0 pg 09/18/2024 1:[address] [facility] Mean Cell Hemoglobin Concentration 33.7 31.7 - 35.0 g/dL 09/18/2024 1:08 AM [facility] Platelet 250 145 - 357 x10(3)/mc L 09/18/2024 1:[address] [facility] Mean Platelet Volume 10.3 7.6 - 12.9 fL 09/18/2024 1:08 [facility] RDW Standard Deviation 42.9 37.0 - 46.0 fL 09/18/2024 1:08 [facility] RDW coefficient of variation 13.1 11.5 - 14.1 % 09/18/2024 1:08 AM [facility] NRBC% auto 0.0 % 09/18/2024 1:08 [facility] NRBC Absolute <0.01 <0.01 x10(3)/mc L 09/18/2024 1:08 AM [facility] Neutrophil % 86.6 % 09/18/2024 1:08 AM [facility] Comment:This is an appended report. These results have been appended to a previously preliminary verified report. Neutrophil Absolute (ANC) - Automated 17.33(H) 1.70 - 6.10 x10(3)/mc L 09/18/2024 1:08 AM [facility] Comment:This is an appended report. These results have been appended to a previously preliminary verified report. Lymph % 4.7 % 09/18/2024 1:08 AM [facility] Comment:This is an appended report. These results have been appended to a previously preliminary verified report. Lymph Absolute 0.95 0.90 - 3.20 x10(3)/mc L 09/18/2024 1:08 AM [facility] Comment:This is an appended report. These results have been appended to a previously preliminary verified report. Monocyte % 8.1 % 09/18/2024 1:08 AM [facility] Comment:This is an appended report. These results have been appended to a previously preliminary verified report. Monocyte Absolute 1.63(H) 0.30 - 0.90 x10(3)/mc L 09/18/2024 1:08 AM [facility] Comment:This is an appended report. These results have been appended to a previously preliminary verified report. Eos % 0.0 % 09/18/2024 1:08 AM [facility] Comment:This is an appended report. These results have been appended to a previously preliminary verified report. Eos Absolute <0.04 0.00 - 0.40 x10(3)/mc L 09/18/2024 1:08 AM [facility] Comment:This is an appended report. These results have been appended to a previously preliminary verified report. Basophil % 0.1 % 09/18/2024 1:[address] [facility] Comment:This is an appended report. These results have been appended to a previously preliminary verified report. Baso Absolute <0.04 0.00 - 0.10 x10(3)/mc L 09/18/2024 1:[address] [facility] Comment:This is an appended report. These results have been appended to a previously preliminary verified report. Immature Gran % 0.5 % 1:[address] [facility] Comment:This is an appended report. These results have been appended to a previously preliminary verified report. Immature Gran Absolute 0.11(H) 0.00 - 0.04 x10(3)/mc L 09/18/2024 1:[address] [facility] Comment:This is an appended report. These results have been appended to a previously preliminary verified report. Blood VENOUS BLOOD SPECIMEN / Unknown IP Care Team Draw / Unknown 09/18/2024 12:20 AM EDT 09/18/2024 12:28 AM EDT Librado Patel MD HEMATOLOGY ORDERABLE S [facility] [place] [place] [address] * APTT (09/18/2024 12:20 AM EDT) [facility] Signature Partial Thromboplastin Time 25 25 - 37 sec 09/18/2024 12:[address] [facility] Comment: The PTT is NOT appropriate for heparin monitoring. Use the Anti-Xa level for heparin monitoring (HEP UFH) or LMWH monitoring (HEP LMW). A PTT less than 37 seconds generally indicates adequate hemostasis. Blood VENOUS BLOOD SPECIMEN / Unknown IP Care Team Draw / Unknown 09/18/2024 12:20 AM EDT 09/18/2024 12:28 AM EDT Serenity Espinosa MD HEMATOLOGY ORDERABLE S [facility] [place] [address] * (ABNORMAL) Prothrombin Time (09/18/2024 12:20 AM EDT) [facility] Prothrombin Time 12.8(H) 9.4 - 12.5 sec 09/18/2024 12:[address] [facility] International Normalization Ratio 1.1 <=4.9 09/18/2024 12:[address] [facility] Comment: An INR < 2.0 [...] EDT Serenity Espinosa MD HEMATOLOGY ORDERABLE S [facility] [address] * POC, GLUCOSE (09/17/2024 11:45 PM EDT) [facility] Glucometer, POC 179 65 - 199 mg/dL 09/17/2024 11:[address] [facility] Comment:Supplemental ranges: <140 mg/dL before meals <180 mg/dL all other times of the day. Blood CAPILLARY BLOOD / Unknown 09/17/2024 11:45 PM EDT 09/17/2024 11:45 PM EDT Serenity Espinosa MD POINT OF CARE TEST O RDERABLES [facility] [place] [address] * POC, GLUCOSE (09/17/2024 8:34 PM EDT) Glucometer, POC 187 65 - 199 mg/dL 09/17/2024 8:[address] [facility] Comment:Supplemental ranges: <140 mg/dL before meals <180 mg/dL all other times of the day. Blood CAPILLARY BLOOD / Unknown 09/17/2024 8:34 PM EDT 09/17/2024 8:34 PM EDT Serenity Espinosa MD POINT OF CARE TEST O RDERABLES Performing Organization Address City/[facility]/ZIP Co de Phone Number [facility] [place] [address] * APTT (09/17/2024 5:23 PM EDT) Partial Thromboplastin Time 26 25 - 37 sec 09/17/2024 5:[address] [facility] Comment: The PTT is NOT [...] MD HEMATOLOGY ORDERABLE S Performing Organization Address [facility] Co de Phone Number [facility] [place] [address] * Prothrombin Time (09/17/2024 5:23 PM EDT) Prothrombin Time 12.1 9.4 - 12.5 sec 09/17/2024 5:[address] [facility] International Normalization Ratio 1.1 <=4.9 09/17/2024 5:[address] [facility] Comment: An INR < 2.0 [...] MD HEMATOLOGY ORDERABLE S Performing Organization Address [facility] Co de Phone Number [facility] [place] [address] * POC, GLUCOSE (09/17/2024 4:19 PM EDT) Glucometer, POC 180 65 - 199 mg/dL 09/17/2024 4:[address] [facility] Comment:Supplemental ranges: <140 mg/dL before meals <180 mg/dL all other times of the day. Blood CAPILLARY BLOOD / Unknown 09/17/2024 4:19 PM EDT 09/17/2024 4:20 PM EDT Serenity Espinosa MD POINT OF CARE TEST O RDERABLES Performing Organization Address [facility] Co de Phone Number [facility] [place] [address] * XR Chest One View (09/17/2024 2:13 PM EDT) WORKSTATION ID [id number] RAD Anatomical Region Laterality Modality Chest N/A [...] who have questions please contact the health customer care agent that requested your imaging first. ? Electronically signed by: Zoey Zabala MD, [facility] ([phone]), at 09/17/2024 2:43 PM Narrative 09/17/2024 2:43 PM EDT EXAMINATION: XR [...] patients who have questions please contactthe health customer care agent that requested your imaging first. Electronically signed by: Zoey Zabala MD, [facility]([phone]), at 09/17/2024 2:43 PM Liza Love APRN IMG DX ORDERABLES * APTT (09/17/2024 12:36 PM EDT) [facility] Partial Thromboplastin Time 25 25 - 37 sec 09/17/2024 1:[address] [facility] Comment: The PTT is NOT appropriate for heparin monitoring. Use the Anti-Xa level for heparin monitoring (HEP UFH) or LMWH monitoring (HEP LMW). A PTT less than 37 seconds generally indicates adequate hemostasis. Blood VENOUS BLOOD SPECIMEN / Unknown IP Care Team Draw / Unknown 09/17/2024 12:36 PM EDT 09/17/2024 12:48 PM EDT Serenity Espinosa MD HEMATOLOGY ORDERABLE S [facility] [place] [address] * Prothrombin Time (09/17/2024 12:36 PM EDT) [facility] Prothrombin Time 12.0 9.4 - 12.5 sec 09/17/2024 1:[address] [facility] International Normalization Ratio 1.1 <=4.9 09/17/2024 1:[address] [facility] Comment: An INR < 2.0 [...] MD HEMATOLOGY ORDERABLE S Performing Organization Address City/[facility]/ZIP Co de Phone Number [facility] [place] [address] * POC, GLUCOSE (09/17/2024 11:26 AM EDT) [facility] Glucometer, POC 183 65 - 199 mg/dL 09/17/2024 11:[address] [facility] Comment:Supplemental ranges: <140 mg/dL before meals <180 mg/dL all other times of the day. Blood CAPILLARY BLOOD / Unknown 09/17/2024 11:26 AM EDT 09/17/2024 11:27 AM EDT Serenity Espinosa MD POINT OF CARE TEST O RDERABLES [facility] [place] [address] * ECHO LMTD W CONTRAST W LMTD SPEC DOPP COLOR DOPP (09/17/2024 8:18 AM EDT) EF 65 HEARTLAB SYSTEM Anatomical Region Laterality Modality Cardiac Other 09/17/2024 7:35 AM EDT Narrative 09/17/2024 11:18 AM EDT ? Version 2 [address] [place] [address] ? Echocardiogram Report Name: DAMIONLUCERO URIBE ?Study Date: 09/17/2024 07:35 AMBP: 142/68 mmHg : 1950 ? Height: 152 cm ? Account: [id number] Age: 74 yrs ? Weight: 89 kg Gender: Female ?BSA: 1.8 m2 Ordering Physician: DUANE CAUSEY Referring Physician: ILIANA CARPENTER Performed By: USR Reason For Study: Atrial Fibrillation, Watchman Exam Location: [facility]. Interpretation Summary 1. Normal left ventriclar wall thickness, chamber size and systolic function. The left ventricular ejection fraction is 75% by Ruth's biplane. There are no segmental wall motion abnormalities. No thrombus visualized with Definity. 2. Normal right ventricular size and systolic function. 3. No hemodynamically significant valvular abnormalities. Compared to 05/06/2024: Findings are stable Procedure Limited - 91996. Image enhancement Definity was used for left [...] Newberry MD - 09/17/2024 Version 2 [address] [place] [address] Echocardiogram Report Name: DAMIONLUCERO Study Date: 407:35 AMBP: 142/68 mmHg : 1950 Height: 152 cm Account: [id number] Age: 74 yrs Weight: 89 kg Gender: Female BSA: 1.8 m2 Ordering Physician: DUANE CAUSEY Referring Physician: ILIANA CARPENTER Performed By: EDWIN Reason For Study: Atrial Fibrillation, Watchman Exam Location: [facility]. Interpretation Summary 1. Normal left ventriclar wall thickness, chamber size and systolicfunction. The left ventricular ejection fraction is 75% by Ruth's biplane. There areno segmental wall motion abnormalities. No thrombus visualized withDefinity. 2. Normal right ventricular size and systolic function. 3. No hemodynamically significant valvular abnormalities. Compared to 05/06/2024: Findings are stable Procedure Limited - [id number]. Image enhancement Definity was used for leftventricular [...] * POC, GLUCOSE (09/17/2024 7:57 AM EDT) [facility] Signature Glucometer, POC 122 65 - 199 mg/dL 09/17/2024 7:[address] [facility] Comment:Supplemental ranges: <140 mg/dL before meals <180 mg/dL all other times of the day. Blood CAPILLARY BLOOD / Unknown 09/17/2024 7:57 AM EDT 09/17/2024 7:58 AM EDT Serenity Espinosa MD POINT OF CARE TEST O RDERABLES [facility] [place] [address] * APTT (09/17/2024 6:18 AM EDT) Partial Thromboplastin Time 26 25 - 37 sec 09/17/2024 6:[address] [facility] Comment: The PTT is NOT [...] MD HEMATOLOGY ORDERABLE S Performing Organization Address [facility] Co de Phone Number [facility] [place] [address] * Prothrombin Time (09/17/2024 6:18 AM EDT) Prothrombin Time 11.7 9.4 - 12.5 sec 09/17/2024 6:[address] [facility] International Normalization Ratio 1.0 <=4.9 09/17/2024 6:[address] [facility] Comment: An INR < 2.0 [...] MD HEMATOLOGY ORDERABLE S Performing Organization Address City/[facility]/ZIP Co de Phone Number [facility] [place] [place] [address] * Prepare Platelets, Apheresis (09/17/2024 6:07 AM EDT) Status Information Transfused [facility] Product Identification [id number] [facility] Unit Number [id number] [facility] Product Code [id number] [facility] Unit Blood Type APOS [facility] Specimen Expiration Date [facility] Volulme 236 [facility] Issue Date / Time [id number] [facility] Blood 09/16/2024 5:1 2 PM EDT Duane Lazcano MD BLOOD BANK PRODUCT O RDERABLES [facility] [place] [address] * CT Head wo Contrast (Generic) (09/17/2024 4:51 AM EDT) WORKSTATION ID [id number] RAD Anatomical Region Laterality Modality Head Computed [...] who have questions please contact the health customer care agent that requested your imaging first. ? Electronically signed by: Elvin Bolden DO, [facility] ?? ([phone]), at 09/17/2024 8:55 AM --------ORIGINAL REPORT -------- EXAMINATION: [...] who have questions please contact the health customer care agent that requested your imaging first. ? Electronically signed by: Elvin Bolden DO, [facility] ?? ([phone]), at 09/17/2024 8:38 AM Addendum by Elvin [...] who have questions please contact the health customer care agent that requested your imaging first. ? Electronically signed by: Elvin Bolden DO [facility] ?? ([phone]), at 09/17/2024 8:38 AM Impressions 09/17/2024 8:38 [...] who have questions please contact the health customer care agent that requested your imaging first. ? Electronically signed by: Elvin Bolden DO [facility] ??([phone]), at 09/17/2024 8:38 AM Narrative 09/17/2024 8:38 [...] patients who have questions please contactthe health customer care agent that requested your imaging first. Electronically signed by: Elvin Bolden DO [facility]([phone]), at 09/17/2024 8:38 AM Sushila Espinal MD IMG CT ORDERABLES * POC, GLUCOSE (09/17/2024 3:16 AM EDT) Glucometer, POC 167 65 - 199 mg/dL 09/17/2024 3:[address] [facility] Comment:Supplemental ranges: <140 mg/dL before meals <180 mg/dL all other times of the day. Blood CAPILLARY BLOOD / Unknown 09/17/2024 3:16 AM EDT 09/17/2024 3:16 AM EDT Serenity Espinosa MD POINT OF CARE TEST O RDERABLES Performing Organization Address City/[facility]/ZIP Co de Phone Number [facility] [place] [address] * Scan, Peripheral Blood (09/17/2024 12:39 AM EDT) RBC Morphology Normal 09/17/2024 1:[address] [facility] Platelet Estimate Normal Normal 09/17/2024 1:[address] [facility] Blood VENOUS BLOOD SPECIMEN / Unknown IP Care Team Draw / Unknown 09/17/2024 12:39 AM EDT 09/17/2024 12:54 AM EDT Jah Altman APRN HEMATOLOGY ORDERAB LES Performing Organization Address City/[facility]/ZIP Co de Phone Number [facility] [place] [address] * (ABNORMAL) Osmolality (09/17/2024 12:39 AM EDT) Osmolality 309(H) 275 - 295 mOsm/kg 09/17/2024 1:[address] [facility] Blood VENOUS BLOOD SPECIMEN / Unknown IP Care Team Draw / Unknown 09/17/2024 12:39 AM EDT 09/17/2024 12:54 AM EDT Serenity Espinosa MD CHEMISTRY ORDERABLES Performing Organization Address City/[facility]/ZIP Co de Phone Number [facility] [place] [place] [address] * APTT (09/17/2024 12:39 AM EDT) Partial Thromboplastin Time 27 25 - 37 sec 09/17/2024 1:[address] [facility] Comment: The PTT is NOT [...] MD HEMATOLOGY ORDERABLE S Performing Organization Address [facility] Co de Phone Number [facility] [place] [address] * Prothrombin Time (09/17/2024 12:39 AM EDT) Prothrombin Time 11.7 9.4 - 12.5 sec 09/17/2024 1:[address] [facility] International Normalization Ratio 1.0 <=4.9 09/17/2024 1:[address] [facility] Comment: An INR < 2.0 [...] EDT Serenity Espinosa MD HEMATOLOGY ORDERABLE S [facility] [place] [address] * Phosphorus (09/17/2024 12:39 AM EDT) Pathologist [facility] Phosphorus 2.8 2.5 - 4.5 mg/dL 09/17/2024 1:[address] [facility] Blood VENOUS BLOOD SPECIMEN / Unknown IP Care Team Draw / Unknown 09/17/2024 12:39 AM EDT 09/17/2024 12:54 AM EDT Librado Patel MD CHEMISTRY ORDERABLES [facility] [place] [place] [address] * (ABNORMAL) Basic Metabolic Panel (09/17/2024 12:39 AM EDT) Pathologist [facility] Glucose 218(H) 65 - 199 mg/dL 09/17/2024 1:[address] [facility] Comment:Glucose Concentratio n >=200 mg/dL plus symptoms is consistent with Diabetes Mellitus. Blood Urea Nitrogen 15 8 - 18 mg/dL 09/17/2024 1:[address] [facility] Creatinine 0.67(L) 0.70 - 1.20 mg/dL 09/17/2024 1:[address] [facility] Sodium 141 135 - 145 mMol/L 09/17/2024 1:[address] [facility] Potassium 4.4 3.5 - 5.0 mMol/L 09/17/2024 1:[address] [facility] Chloride 108(H) 98 - 107 mMol/L 09/17/2024 1:[address] [facility] Carbon Dioxide 21(L) 22 - 31 mMol/L 09/17/2024 1:[address] [facility] Anion Gap 12 5 - 15 mMol/L 09/17/2024 1:[address] [facility] Calcium 9.1 8.5 - 10.5 mg/dL 09/17/2024 1:[address] [facility] Est Glomerular Filtration Rate - Female 93 mL/min/1. 73 m?? 09/17/2024 1:[address] [facility] Comment: This patient's estimated GFR [...] AM EDT Librado Patel MD CHEMISTRY ORDERABLES [facility] [place] [place] [address] * Magnesium (09/17/2024 12:39 AM EDT) Magnesium 0.73 0.69 - 1.07 mMol/L 09/17/2024 1:[address] [facility] Blood VENOUS BLOOD SPECIMEN / Unknown IP Care Team Draw / Unknown 09/17/2024 12:39 AM EDT 09/17/2024 12:54 AM EDT Librado Patel MD CHEMISTRY ORDERABLES [facility] [place] [place] [address] * (ABNORMAL) CBC (with Diff) (09/17/2024 12:39 AM EDT) White Blood Cell 23.60(H) 4.00 - 9.50 x10(3)/mc L 09/17/2024 1:33 AM [facility] Red Blood Cell 4.29 4.00 - 5.21 x10(6)/mc L 09/17/2024 1:33 AM [facility] Hemoglobin 12.9 11.7 - 15.5 g/dL 09/17/2024 1:33 AM [facility] Hematocrit 38.5 35.7 - 45.8 % 09/17/2024 1:33 AM [facility] Mean Cell Volume 89.7 82.6 - 94.4 fL 09/17/2024 1:33 AM [facility] Mean Cell Hemoglobin 30.1 27.1 - 32.0 pg 09/17/2024 1:33 AM [facility] Mean Cell Hemoglobin Concentration 33.5 31.7 - 35.0 g/dL 09/17/2024 1:33 AM [facility] Platelet 327 145 - 357 x10(3)/mc L 09/17/2024 1:33 AM [facility] Mean Platelet Volume 10.2 7.6 - 12.9 fL 09/17/2024 1:33 AM [facility] RDW Standard Deviation 40.6 37.0 - 46.0 fL 09/17/2024 1:33 AM [facility] RDW coefficient of variation 12.4 11.5 - 14.1 % 09/17/2024 1:33 AM [facility] NRBC% auto 0.0 % 09/17/2024 1:33 AM [facility] NRBC Absolute <0.01 <0.01 x10(3)/mc L 09/17/2024 1:33 AM [facility] Neutrophil % 90.5 % 09/17/2024 1:33 AM [facility] Comment:This is an appended report. These results have been appended to a previously preliminary verified report. Neutrophil Absolute (ANC) - Automated 21.36(H) 1.70 - 6.10 x10(3)/mc L 09/17/2024 1:33 AM [facility] Comment:This is an appended report. These results have been appended to a previously preliminary verified report. Lymph % 3.5 % 09/17/2024 1:33 AM [facility] Comment:This is an appended report. These results have been appended to a previously preliminary verified report. Lymph Absolute 0.83(L) 0.90 - 3.20 x10(3)/mc L 09/17/2024 1:33 AM [facility] Comment:This is an appended report. These results have been appended to a previously preliminary verified report. Monocyte % 5.2 % 09/17/2024 1:33 AM [facility] Comment:This is an appended report. These results have been appended to a previously preliminary verified report. Monocyte Absolute 1.22(H) 0.30 - 0.90 x10(3)/mc L 09/17/2024 1:33 AM [facility] Comment:This is an appended report. These results have been appended to a previously preliminary verified report. Eos % 0.0 % 09/17/2024 1:33 AM [facility] Comment:This is an appended report. These results have been appended to a previously preliminary verified report. Eos Absolute <0.04 0.00 - 0.40 x10(3)/mc L 09/17/2024 1:33 AM [facility] Comment:This is an appended report. These results have been appended to a previously preliminary verified report. Basophil % 0.2 % 09/17/2024 1:33 AM [facility] Comment:This is an appended report. These results have been appended to a previously preliminary verified report. Baso Absolute 0.04 0.00 - 0.10 x10(3)/mc L 09/17/2024 1:33 AM [facility] Comment:This is an appended report. These results have been appended to a previously preliminary verified report. Immature Gran % 0.6 % 1:[address] [facility] Comment:This is an appended report. These results have been appended to a previously preliminary verified report. Immature Gran Absolute 0.15(H) 0.00 - 0.04 x10(3)/mc L 09/17/2024 1:[address] [facility] Comment:This is an appended report. These results have been appended to a previously preliminary verified report. Blood VENOUS BLOOD SPECIMEN / Unknown IP Care Team Draw / Unknown 09/17/2024 12:39 AM EDT 09/17/2024 12:54 AM EDT Librado Patel MD HEMATOLOGY ORDERABLE S Performing Organization Address City/[facility]/ZIP Co de Phone Number [facility] [place] [address] * (ABNORMAL) Glucose (09/17/2024 12:39 AM EDT) Glucose 218(H) 65 - 199 mg/dL 09/17/2024 1:[address] [facility] Comment:Glucose Concentratio n >=200 mg/dL plus symptoms is consistent with Diabetes Mellitus. Blood VENOUS BLOOD SPECIMEN / Unknown IP Care Team Draw / Unknown 09/17/2024 12:39 AM EDT 09/17/2024 12:54 AM EDT Jah Altman GUEST ROOM INSPECTOR CHEMISTRY ORDERABL ES Performing Organization Address City/[facility]/ZIP Co de Phone Number [facility] [place] [address] * Triglyceride (09/17/2024 12:39 AM EDT) Triglyceride 147 mg/dL 09/17/2024 1:[address] [facility] Comment: Normal: <150 mg/dL Borderline High: 150-199 mg/dL High: 200-499 mg/dL Very High: > or =500 mg/dL Blood VENOUS BLOOD SPECIMEN / Unknown IP Care Team Draw / Unknown 09/17/2024 12:39 AM EDT 09/17/2024 12:54 AM EDT Jah Altman RICHARD CHEMISTRY ORDERABL ES [facility] [place] [address] * HDL/Cholesterol Profile (09/17/2024 12:39 AM EDT) [facility] Cholesterol, Total 203 mg/dL 09/17/2024 1:[address] [facility] Comment: Desirable: < 200 mg/dL Borderline High: 200 - 239 mg/dL High: > or = 240 mg/dL HDL Cholesterol 45 mg/dL 1:[address] [facility] Comment:Female: High Risk: < 50 mg/dL Non-HDL Cholesterol 158 mg/dL 09/17/2024 1:[address] [facility] Comment: Desirable: <130 mg/dL Above Desirable: 130-159 mg/dL Borderline High: 160-189 mg/dL High: 190-219 mg/dL Very High: > or = 220 mg/dL Blood VENOUS BLOOD SPECIMEN / Unknown IP Care Team Draw / Unknown 09/17/2024 12:39 AM EDT 09/17/2024 12:[address] [facility] - 09/17/2024 1:26 AM EDT [...] ACC/AHA Guidelines (most recently Jackie main al. JAC 08/27/22): * For individuals with atherosclerotic cardiovascular [...] disease) Jah Altman APRN CHEMISTRY ORDERABL ES [facility] [place] [address] * LDL Cholesterol, Direct (09/17/2024 12:39 AM EDT) [facility] LDL Cholesterol, Direct 133 mg/dL 09/17/2024 1:[address] [facility] Comment: Desirable: <100 mg/dL Above [...] APRN CHEMISTRY ORDERABL ES Performing Organization Address City/State/[facility] Co de Phone Number [facility] [place] [address] * (ABNORMAL) Hemoglobin A1c (09/17/2024 12:39 AM EDT) Hemoglobin A1c 6.1(H) 4.3 - 5.6 % 09/17/2024 1:[address] [facility] Comment: Per ADA guidelines, without [...] red blood cell turnover may not be outside sales account representative of glycemic control. Reference Interval: 4.3 - 5.6% 5.7 - 6.4%: Consistent with prediabetes >=6.5%: Consistent with diagnosis of diabetes mellitus Estimated Average Glucose 09/17/2024 1:[address] [facility] Comment:Estimated Average Gl ucose not appropriate for patients over 70 years of age. Blood VENOUS BLOOD SPECIMEN / Unknown IP Care Team Draw / Unknown 09/17/2024 12:39 AM EDT 09/17/2024 12:[address] [facility] - 09/17/2024 1:26 AM EDT Estimated average glucose (eAG) is calculated from the equation described in: Amari MOSLEY, Wm J, Tyree R, et al. ??Translating the A1C assay into estimated average glucose values. ??Diabetes Care 2008:31(8):4346-3240. Additional resources are available on the ADA website (diabetes.org). Jah Altman APRN CHEMISTRY ORDERABL ES [facility] [place] [address] * CT Venogram Brain (09/16/2024 11:21 PM EDT) [employer], an [employer] WORKSTATION ID [id number] RAD Anatomical Region Laterality Modality Head Computed [...] who have questions please contact the health customer care agent that requested your imaging first. ? Electronically signed by: Armando Pan MD, [facility] ([phone]), at 09/17/2024 1:42 AM Narrative 09/17/2024 1:42 [...] patients who have questions please contactthe health customer care agent that requested your imaging first. Electronically signed by: Armando Pan MD, [facility]([phone]), at 09/17/2024 1:42 AM Serenity Espinosa MD IMG CT ORDERABLES * CT Head wo Contrast (Generic) (09/16/2024 11:21 PM EDT) WORKSTATION ID [id number] RAD Anatomical Region Laterality Modality Head Computed [...] who have questions please contact the health customer care agent that requested your imaging first. ? Electronically signed by: Armando Pan MD, [facility] ([phone]), at 09/17/2024 1:42 AM Narrative 09/17/2024 1:42 [...] patients who have questions please contactthe health customer care agent that requested your imaging first. Electronically signed by: Armando Pan MD, [facility]([phone]), at 09/17/2024 1:42 AM Serenity Espinosa MD IMG CT ORDERABLES * XR Abdomen 1 view (Generic) (09/16/2024 11:00 PM EDT) [employer] Signature WORKSTATION ID [id number] RAD Anatomical Region Laterality Modality Abdomen N/A [...] who have questions please contact the health customer care agent that requested your imaging first. ? Electronically signed by: Pamela Beard MD, [facility] ([phone]), at 09/17/2024 12:09 AM Narrative 09/17/2024 12:09 [...] patients who have questions please contactthe health customer care agent that requested your imaging first. Electronically signed by: Pamela Beard MD, [facility]([phone]), at 09/17/2024 12:09 AM Serenity Espinosa MD IMG DX ORDERABLES * XR Chest One View (09/16/2024 11:00 PM EDT) WORKSTATION ID [id number] RAD Anatomical Region Laterality Modality Chest N/A [...] who have questions please contact the health customer care agent that requested your imaging first. ? Electronically signed by: Pamela Beard MD, [facility] ([phone]), at 09/17/2024 12:09 AM Narrative 09/17/2024 12:09 [...] patients who have questions please contactthe health customer care agent that requested your imaging first. Electronically signed by: Pamela Beard MD, [facility]([phone]), at 09/17/2024 12:09 AM Jah D Halliwell GUEST ROOM INSPECTOR IMG DX ORDERABLES * Prepare RBC (09/16/2024 10:50 PM EDT) Status Information Returned [facility] Product Identification RBC [facility] Unit Number [id number] [facility] Product Code [id number] [facility] Unit Blood Type OPOS [facility] Specimen Expiration Date [facility] Volulme 350 [facility] Issue Date / Time [facility] Status [facility] Returned [facility] Product Identification RBC [facility] Unit Number [id number] [facility] Product [facility] [id number] [facility] Unit Blood Type OPOS [facility] Specimen Expiration Date [facility] Volulme 350 [facility] Issue Date / Time [facility] Status Information Returned [facility] Product Identification RBC [facility] Unit Number [id number] [facility] Product [facility] [id number] [facility] Unit Blood Type OPOS [facility] Specimen Expiration Date [facility] Volulme 350 [facility] Issue Date / Time [facility] Blood 09/16/2024 5:3 6 PM EDT Duane Lazcano MD BLOOD BANK PRODUCT O RDERABLES [facility] [place] [place] [address] * POC, GLUCOSE (09/16/2024 10:05 PM EDT) Glucometer, POC 170 65 - 199 mg/dL 09/16/2024 10:[address] [facility] Comment:Supplemental ranges: <140 mg/dL before meals <180 mg/dL all other times of the day. Blood CAPILLARY BLOOD / Unknown 09/16/2024 10:05 PM EDT 09/16/2024 10:06 PM EDT Serenity Espinosa MD POINT OF CARE TEST O RDERABLES [facility] [place] [address] * (ABNORMAL) Blood Gas, Arterial POC (09/16/2024 8:22 PM EDT) pH, Arterial 7.33(L) 7.35 - 7.45 09/17/2024 8:[address] [facility] PCO2, Arterial 43 35 - 45 mmHg 09/17/2024 8:[address] [facility] PO2, Arterial 158(H) 85 - 104 mmHg 09/17/2024 8:[address] [facility] Bicarbonate, Arterial 22.1 20.0 - 26.0 mmol/L 09/17/2024 8:[address] [facility] Base Excess, Arterial -3.8(L) -3.0 - 3.0 mmol/L 09/17/2024 8:[address] [facility] Hemoglobin, Arterial 13.7 11.7 - 15.5 g/dL 09/17/2024 8:50 AM [facility] Oxyhemoglobin, Arterial 98.0(H) 94.0 - 97.0 % 09/17/2024 8:[address] [facility] Carboxyhemoglobin , Arterial 0.5 % [facility]/17[facility]24 [facility] Comment: Nonsmokers: 0.5-1.5% COHB ?? Smokers: Variable ??but usually less than 10% ?? Toxic: 20-30% COHB ?? Lethal: Greater than 60% COHB Methemoglobin, Arterial 0.3 <=1.5 % 09/17/2024 8:[address] [facility] Sodium, Arterial 141 135 - 145 mmol/L 09/17/2024 8:[address] [facility] Potassium, Arterial 4.1 3.5 - 5.0 mmol/L 09/17/2024 8:[address] [facility] Chloride, Arterial 104 98 - 107 mmol/L 09/17/2024 8:[address] [facility] Lactate, Arterial 4.0(HHH) 0.5 - 2.2 mmol/L 09/17/2024 8:[address] [facility] IONIZED CALCIUM, ARTERIAL 1.18 1.15 - 1.33 mmol/L 09/17/2024 8:[address] [facility] Glucose, Arterial 165 65 - 199 mg/dL 09/17/2024 8:[address] [facility] Comment:Glucose Concentratio n >=200 mg/dL plus symptoms is consistent with Diabetes Mellitus. Blood ARTERIAL BLOOD / Unknown 09/16/2024 8:22 PM EDT 09/17/2024 8:50 AM EDT Serenity Espinosa MD POINT OF CARE TEST O RDERABLES [facility] [place] [address] * (ABNORMAL) Surgical Pathology (09/16/2024 7:20 PM EDT) Case Report Surgical Pathology Report ? Case: [id number] ? Authorizing Provider: ??Sushila Espinal MD ? Collected: ? 09/16/20241919 ? Ordering Location: ? Main Operating Room [place] ?? Received: ?09/16/20242123 ? [facility] ? Hospital ? Pathologist: ? Juanito Frye MD ? Specimen: ?Brain, Right, Right-Sided Infraparenchymal Hemorrhage ? 09/29/2024 12:07 PM [facility] Final Diagnosis A. Right-sided Intraparenchymal hemorrhage,excision: Blood clot, consistent with intraparenchymal hematoma. Cerebral amyloid angiopathy. 09/29/2024 12:07 PM [facility] Discussion Hematoxylin and eosin-stained sections of the specimen show sheets of erythrocytes with admixed leukocytes and fibrin strands. There is no evidence of membrane formation. Small fragments of NEON MOLDER parenchyma and blood vessels are present in the sample. The blood vessels contain eosinophilic material in their thurman. 09/29/2024 12:07 PM [facility] Additional Studies Block Antibody Result (Positive/Negative) A1,A2 Beta-amyloid Positive. 09/29/2024 12:07 PM [facility] Disclaimer(s) Formalin-fixed, paraffin-embedded tissue sections [...] and other diagnostic tests. 09/29/2024 12:07 PM [facility] Clinical Information A. Brain, Right, Right-Sided Infraparenchymal Hemorrhage *Other - as specified in Clinical Information Dx: R [facility] OR 10 ; [id number] 09/29/2024 12:07 PM [facility] Gross Description A. Brain, Right, Right-Sided Infraparenchymal Hemorrhage. A - Labeled/Fixative: Right sided intraparenchymal hemorrhage, fresh. Quantity/Size: Multiple, 9 x 7 x 4 cm. Tissue Description: Aggregate of blood clot with scant interspersed white tissue. Sections/Processing: [employer] sections in 2 cassettes labeled A1-A2. sns 09/29/2024 12:07 PM [facility] Result Note THIS RESULT REQUIRES PHYSICIAN/JESSI FOLLOW UP(A) 09/29/2024 12:07 PM [facility] Tissue BRAIN STRUCTURE / Unknown 09/16/2024 7:20 PM EDT 09/16/2024 9:24 PM EDT Comment:Dx: R [facility] OR 10 ; [id number] Sushila Espinal MD PATHOLOGY/CYTOLOGY O RDERAASHLIE [facility] [address] * (ABNORMAL) Blood Gas, Arterial POC (09/16/2024 6:23 PM EDT) pH, Arterial 7.42 7.35 - 7.45 09/17/2024 8:[address] [facility] PCO2, Arterial 31(L) 35 - 45 mmHg 09/17/2024 8:[address] [facility] PO2, Arterial 121(H) 85 - 104 mmHg 09/17/2024 8:49 AM [facility] Bicarbonate, Arterial 19.6(L) 20.0 - 26.0 mmol/L 09/17/2024 8:49 AM [facility] Base Excess, Arterial -4.9(L) -3.0 - 3.0 mmol/L 09/17/2024 8:49 AM [facility] Hemoglobin, Arterial 13.4 11.7 - 15.5 g/dL 09/17/2024 8:49 AM [facility] Oxyhemoglobin, Arterial 97.7(H) 94.0 - 97.0 % 09/17/2024 8:49 AM [facility] Carboxyhemoglobin , Arterial 0.2 % 09/17/2024 8:49 AM [facility] Comment: Nonsmokers: 0.5-1.5% COHB ?? Smokers: Variable ??but usually less than 10% ?? Toxic: 20-30% COHB ?? Lethal: Greater than 60% COHB Methemoglobin, Arterial 0.2 <=1.5 % 09/17/2024 8:49 AM [facility] Sodium, Arterial 138 135 - 145 mmol/L 09/17/2024 8:49 AM [facility] Potassium, Arterial 4.2 3.5 - 5.0 mmol/L 09/17/2024 8:49 AM [facility] Chloride, Arterial 105 98 - 107 mmol/L 09/17/2024 8:49 AM [facility] Lactate, Arterial 2.8(H) 0.5 - 2.2 mmol/L 09/17/2024 8:49 AM [facility] IONIZED CALCIUM, ARTERIAL 1.11(L) 1.15 - 1.33 mmol/L 09/17/2024 8:49 AM [facility] Glucose, Arterial 169 65 - 199 mg/dL 09/17/2024 8:49 AM [facility] Comment:Glucose Concentratio n >=200 mg/dL plus symptoms is consistent with Diabetes Mellitus. Blood ARTERIAL BLOOD / Unknown 09/16/2024 6:23 PM EDT 09/17/2024 8:49 AM EDT Serenity Espinosa MD POINT OF CARE TEST O RDERABLES [facility] [place] [address] * (ABNORMAL) Blood Gas, Arterial POC (09/16/2024 5:49 PM EDT) pH, Arterial 7.34(L) 7.35 - 7.45 09/17/2024 8:[address] [facility] PCO2, Arterial 35 35 - 45 mmHg 09/17/2024 8:[address] [facility] PO2, Arterial 181(H) 85 - 104 mmHg 09/17/2024 8:[address] [facility] Bicarbonate, Arterial 18.5(L) 20.0 - 26.0 mmol/L 09/17/2024 8:[address] [facility] Base Excess, Arterial -7.3(L) -3.0 - 3.0 mmol/L 09/17/2024 8:[address] [facility] Hemoglobin, Arterial 12.8 11.7 - 15.5 g/dL 09/17/2024 8:[address] [facility] Oxyhemoglobin, Arterial 98.1(H) 94.0 - 97.0 % 09/17/2024 8:[address] [facility] Carboxyhemoglobin , Arterial 0.3 % 09/17/2024 8:[address] [facility] Comment: Nonsmokers: 0.5-1.5% COHB ?? Smokers: Variable ??but usually less than 10% ?? Toxic: 20-30% COHB ?? Lethal: Greater than 60% COHB Methemoglobin, Arterial 0.5 <=1.5 % 09/17/2024 8:[address] [facility] Sodium, Arterial 134(L) 135 - 145 mmol/L 09/17/2024 8:[address] [facility] Potassium, Arterial 4.1 3.5 - 5.0 mmol/L 09/17/2024 8:[address] [facility] Chloride, Arterial 103 98 - 107 mmol/L 09/17/2024 8:[address] [facility] Lactate, Arterial 1.9 0.5 - 2.2 mmol/L 09/17/2024 8:[address] [facility] IONIZED CALCIUM, ARTERIAL 1.07(L) 1.15 - 1.33 mmol/L 09/17/2024 8:[address] [facility] Glucose, Arterial 178 65 - 199 mg/dL 09/17/2024 8:[address] [facility] Comment:Glucose Concentratio n >=200 mg/dL plus symptoms is consistent with Diabetes Mellitus. Blood ARTERIAL BLOOD / Unknown 09/16/2024 5:49 PM EDT 09/17/2024 8:49 AM EDT Duane Lazcano MD POINT OF CARE TEST O RDERABLES [facility] [place] [address] * CT Head wo Contrast (Generic) (09/16/2024 5:26 PM EDT) [employer] Signature WORKSTATION ID [id number] RAD Anatomical Region Laterality Modality Head [...] who have questions please contact the health customer care agent that requested your imaging first. ? Electronically signed by: Lana Reinoso [facility] ([phone]), at 09/16/2024 6:01 PM Narrative 09/16/2024 6:01 PM EDT EXAMINATION: CT [...] patients who have questions please contactthe health customer care agent that requested your imaging first. Electronically signed by: Lana Reinoso [facility]([phone]), at 09/16/2024 6:01 PM Duane Lazcano MD IMG CT ORDERABLES * Triglyceride (09/16/2024 5:07 PM EDT) Triglyceride 174 mg/dL 09/16/2024 10:[address] [facility] Comment: Normal: <150 mg/dL Borderline High: 150-199 mg/dL High: 200-499 mg/dL Very High: > or =500 mg/dL Blood VENOUS BLOOD SPECIMEN / Unknown 09/16/2024 5:07 PM EDT 09/16/2024 5:31 PM EDT Jah Altman GUEST ROOM INSPECTOR CHEMISTRY ORDERABL ES [facility] [place] [address] * Green Tube HOLD (09/16/2024 5:07 PM EDT) Green Hold Hold for Add-on 09/16/2024 7:[address] [facility] Blood VENOUS BLOOD SPECIMEN / Unknown 09/16/2024 5:07 PM EDT 09/16/2024 5:31 PM EDT Duane Lazcano MD CHEMISTRY ORDERABLES Performing Organization Address [facility] Co de Phone Number [facility] [place] [address] * APTT (09/16/2024 5:07 PM EDT) Partial Thromboplastin Time 26 25 - 37 sec 09/16/2024 5:[address] [facility] Comment: The PTT is NOT [...] MD HEMATOLOGY ORDERABLE S Performing Organization Address [facility] Co de Phone Number [facility] [place] [address] * Prothrombin Time (09/16/2024 5:07 PM EDT) Prothrombin Time 11.9 9.4 - 12.5 sec 09/16/2024 5:[address] [facility] International Normalization Ratio 1.0 <=4.9 09/16/2024 5:[address] [facility] Comment: An INR < 2.0 [...] EDT Duane Lazcano MD HEMATOLOGY ORDERABLE S [facility] [place] [address] * (ABNORMAL) CBC (with Diff) (09/16/2024 5:07 PM EDT) White Blood Cell 16.82(H) 4.00 - 9.50 x10(3)/mc L 09/16/2024 5:[address] [facility] Red Blood Cell 4.72 4.00 - 5.21 x10(6)/mc L 09/16/2024 5:[address] [facility] Hemoglobin 14.2 11.7 - 15.5 g/dL 09/16/2024 5:[address] [facility] Hematocrit 42.8 35.7 - 45.8 % 09/16/2024 5:[address] [facility] Mean Cell Volume 90.7 82.6 - 94.4 fL 09/16/2024 5:[address] [facility] Mean Cell Hemoglobin 30.1 27.1 - 32.0 pg 09/16/2024 5:[address] [facility] Mean Cell Hemoglobin Concentration 33.2 31.7 - 35.0 g/dL 09/16/2024 5:[address] [facility] Platelet 269 145 - 357 x10(3)/mc L 09/16/2024 5:[address] [facility] Mean Platelet Volume 10.3 7.6 - 12.9 fL 09/16/2024 5:[address] [facility] RDW Standard Deviation 40.4 37.0 - 46.0 fL 09/16/2024 5:32 PM [facility] RDW coefficient of variation 12.3 11.5 - 14.1 % 09/16/2024 5:32 PM [facility] NRBC% auto 0.0 % 09/16/2024 5:32 PM [facility] NRBC Absolute <0.01 <0.01 x10(3)/mc L 09/16/2024 5:32 PM [facility] Neutrophil % 79.2 % 09/16/2024 5:32 PM [facility] Neutrophil Absolute (ANC) - Automated 13.33(H) 1.70 - 6.10 x10(3)/mc L 09/16/2024 5:32 PM [facility] Lymph % 15.0 % 09/16/2024 5:32 PM [facility] Lymph Absolute 2.52 0.90 - 3.20 x10(3)/mc L 09/16/2024 5:32 PM [facility] Monocyte % 4.0 % 09/16/2024 5:32 PM [facility] Monocyte Absolute 0.67 0.30 - 0.90 x10(3)/mc L 09/16/2024 5:32 PM [facility] Eos % 1.1 % 09/16/2024 5:32 PM [facility] Eos Absolute 0.18 0.00 - 0.40 x10(3)/mc L 09/16/2024 5:32 PM [facility] Basophil % 0.2 % 09/16/2024 5:32 PM [facility] Baso Absolute <0.04 0.00 - 0.10 x10(3)/mc L 09/16/2024 5:32 PM [facility] Immature Gran % 0.5 % 5:32 PM [facility] Immature Gran Absolute 0.09(H) 0.00 - 0.04 x10(3)/mc L 09/16/2024 5:[address] [facility] Blood VENOUS BLOOD SPECIMEN / Unknown IP Care Team Draw / Unknown 09/16/2024 5:07 PM EDT 09/16/2024 5:23 PM EDT Duane Lazcano MD HEMATOLOGY ORDERABLE S [facility] [place] [address] * EKG 12 Lead (09/16/2024 3:33 PM EDT) Ventricular rate 75 BPM MUSE SYSTEM Atrial Rate 75 BPM MUSE SYSTEM P-R Interval 164 ms MUSE SYSTEM QRS Duration 72 ms MUSE SYSTEM Q-T Interval 400 ms MUSE SYSTEM QTC Calculated (Bezet) 446 ms MUSE SYSTEM Calculated P Meridian 36 degrees MUSE SYSTEM Calculated R Meridian -17 degrees MUSE SYSTEM Calculated T Meridian 28 degrees MUSE SYSTEM INTERPRETATION Normal sinus rhythm Normal ECG When compared with ECG of 16-SEP-2024 13:08, No significant change was found Confirmed by MD Bahman, Octavio Mosquera ([id number]) on 09/19/2024 9:11:06 AM MUSE SYSTEM 09/16/2024 3:33 PM EDT 09/19/2024 9:11 AM EDT Duane Lazcano MD ECG ORDERABLES Performing Organization Address City/[facility]/ZIP Co de Phone Number MUSE SYSTEM * CARDIAC CATHETERIZATION (09/16/2024 3:16 PM EDT) Anatomical Region Laterality Modality Other Narrative 09/16/2024 6:52 PM EDT ?[facility] ? Cardiac Catheterization/Intervention Report ? Patient Name: Damion, [place] J. ? Procedure Date: 09/16/2024 ? A #: [id number] ? Primary Physician: Causey, Duane V ? Case #: [id number] ? File Name: [id number] ? Catheterization Order Number: [id number] ? [facility] ? Final Report [place], [place] ? Patient Name: ? Lucero J. Damion ? ID#: ?[id number] ? : ?1950 ? Procedure Date: ? September 16, 2024 ? Case #: ? [id number] ? Room: ? 6 ? Case Physicians: ?Duane Causey M.D. ? Start: ?14:12 ?Tl Gamino M.D. ?Admission: ??09/16/2024 ?Dr Aviva M.D. ?Fellow: ? Amari Colbert, P.A. ? Referring Physician: ??Iliana Carpenter APRN [...] procedure was Elective. The indication for ?the slab off mill tender visit is cardiac arrhythmia. Chest pain symptom assessment ?was: Asymptomatic. ? Technique: ?A 17Fr sheath was inserted in the right femoral vein utilizing the ?Seldinger technique. The left atrium was injected utilizing a 6Fr PIGTAIL ?catheter. Left atrial pressure was performed with a 6Fr ANGLED PIGTAIL ?catheter. Transseptal puncture was performed with an 8.5Fr Junar NRG RF ?Needle. 7,000 units of heparin [...] for atrial fibrillation. ?The patient had a NDX3MB3-IFNr score of 4, a HAS-BLED score of [...] A Watchman ?FLX Pro 27 mm (s/l/n [id number]) was prepared and deployed using standard ?technique. [...] to nor was it given in the ?slab off mill tender. ?Recommended anti-platelet/anti-thrombotic regimen: ?Continue aspirin 81 mg daily for indefinitely. ?These recommendations are made at the time of the intervention. Patient ?and provider preferences or a changing clinical situation may require ?modification of this regimen. Consult [facility] [place] for ?questions. ? Conclusions: ?* [...] Procedure Note Duane Causey MD - 09/20/2024 [facility] Cardiac Catheterization/Intervention Report Patient Name: Lucero Bruno Procedure Date: 09/16/2024 A #: [id number] Primary Physician: Duane Causey V Case #: [id number] File Name: [id number] Catheterization Order Number: [id number] [facility] FinalReport [place], [place] Patient Name: Lucero Bruno ID#:[id number] :1950 Procedure Date: September 16, 2024 Case [...] was designated as ASA Class III. The [facility] clinicalfrailty scale is 5: Mildly Frail. Diagnostic Tests: Prior Coronary Angiography: LV ejection fraction within 6 months is 75%. Electrocardiography: EKG was assessed by ECG. Medications Prior to Procedure: Aspirin and Calcium Channel Blocking Agent. Indications for Diagnostic Cath: The priority of the diagnostic procedure was Elective. Theindication for the slab off mill tender visit is cardiac arrhythmia. Chest pain symptomassessment [...] performed for atrialfibrillation. The patient had a [id number] score of 4, a HAS-BLED score of [...] echo guidance using an 8.5 Fr VersaCross Vyeopplzmpp29 degree introducer and VersaCross pigtail RF wire needle. The left atrial occlusion procedure was performed with fluoroscopyand MONICA guidance. An angled pigtail was placed in the left atrialappendage and exchanged for a 17 Fr Watchman TruSteer delivery sheath. AWatchman FLX Pro 27 mm (s/l/n [id number]) was prepared and deployed usingstandard technique. The [...] prior to nor was it given inthe slab off mill tender. Recommended anti-platelet/anti-thrombotic regimen: Continue aspirin 81 mg daily for indefinitely. These recommendations are made at the time of the intervention.Patient and provider preferences or a changing clinical situation mayrequire modification of this regimen. Consult [facility] [place]. Conclusions: * Successful left [...] ?Patient Location: ^CA06^A : 1950 ? Account: [id number] Age: 74 yrs Gender: Female Ordering Physician: [...] appearance of pericardium. Single atrial septostomy with lyyk-kh-eyhtk flow. See report for additional findings. Procedure [...] is a single atrial septostomy site present. Pmmo-ai-qzenp flow is present. The appendage orifice measured [...] MD - 09/16/2024 Transesophageal Echocardiogram Report Name: LUCERO BRUNO Study Date: 09/16/2024 01:44 PM Patient Location: ^MA06^A : 1950 Account:[id number] Age: 74 yrs Gender: Female Ordering Physician: [...] in appearance of pericardium. Single atrialseptostomy with vxvd-sr-eqdyt flow. See report for additional findings. Procedure [...] is a single atrial septostomy site present. Fwce-dv-zjnrs flow is present.The appendage orifice measured 21 [...] PRN, Starting on 10/04/24 at 1538, Until Tu10/12/24 at 1555, Fever, [...] Given 10/12/2024 8:11 AM EST 5 mg bacitracin zinc-polymyxin B (Polysporin) ointment PRN, Starting on Ashley 09/16/24 at 1835, Until 10/04/24 at 1410, Intra-Operative (Intra-Procedure) Given 09/16/2024 6:35 PM EDT 1 Tube 19- Surgical Site dextrose 50% intravenous solution 25 g 25 [...] 10/12/2024 12:17 PM EST 250 mLs 250 mL/hr New Bag 10/12/2024 8:13 AM EST 250 [...] Ashley 10/07/24 at 1230, Until Discontinued, Routine Given 10/12/2024 12:00 PM EST 30 mLs Given 10/12/2024 8:00 AM EST 30 mLs Given 10/12/2024 12:00 AM EST 30 mLs gelatin compressed (Gelfoam) sponge PRN, Starting on Ashley 09/16/24 at 1836, Until 10/04/24 at 1410, Intra-Operative (Intra-Procedure) Given 09/16/2024 6:36 PM EDT 100 cm 19- Surgical Site glucagon (Glucagen) (1 mg/mL) injection solution 1 [...] Given 09/26/2024 6:24 PM EST 20 mg lidocaine-EPINEPHrine (pf) (1% - 1:200,000) injection PRN, Starting on Fri09/16/24 at 1800, Until Fri09/20/24 at 0936, Intra-Operative (Intra-Procedure), Routine Given 09/16/2024 6:00 PM EDT 10 mLs 19- Surgical Site multivitamin with minerals (Thera M) tablet 1 [...] Given 09/26/2024 11:48 AM EST 4 mLs sulfamethoxazole-trimethopr im DS (Bactrim DS) 800-160 mg per tablet 1 tablet 1 tablet, Oral, EVERY 12 HOURS SCHEDULED (2 times per day), 8 doses, First dose on Fri10/12/24 at 0900, Last dose on Fri10/15/24 at 2100, Routine, Indication for (Active or Suspected): Urinary Tract/Pyelonephritis Given 10/12/2024 9:04 AM EST 1 tablet thrombin (Bovine) (Thrombinar) kit PRN, Starting on Ashley 09/16/24 at 1836, Until 10/04/24 at 1410, Intra-Operative (Intra-Procedure) Given 09/16/2024 6:36 PM EDT 20,000 Units 19- Surgical Site traZODone (Desyrel) tablet 50 mg 50 mg, Oral, NIGHTLY, First dose (after last modification) on 10/11/24 at 2100, Until Discontinued, Routine Given 10/11/2024 8:35 PM EST 50 mg documented in this encounter Active and Recently Administered Medications Times are shown in EST. Scheduled Medication Order 10/10/2024 10/11/2024 10/12/2024 amLODIPine (Norvasc) tablet 5 mg (CANCELED) 5 mg, Per G Tube, DAILY, First dose (after last modification) on Fri10/05/24 at 0900, Until Discontinued, Hold if SBP <100mmHg or MAP <65mmHg, Routine 0809 (Given - Provider: Luz Bhat RN) 0903 (Given - Provider: Latosha Winston RN) amLODIPine (Norvasc) tablet 5 mg 5 mg, Oral, DAILY, First dose (after last modification) on Fri10/12/24 at 0900, Until Discontinued, Hold if SBP <100mmHg or MAP <65mmHg, Routine 0811 (Given - Provider: Lorin Morejon RN) ceFEPime (Maxipime) 1g vial attach to sodium [...] RN)1726 (New Bag - Provider: Luz Bhat RN)2025 (Stopped - Provider: Kaleyn Acuña RN)2333 (New Bag - Provider: Kaelyn Acuña RN) 0233 (Stopped - Provider: Kaelyn Acuña RN)0903 (New Bag - Provider: Latosha Winston, RN)1203 (Stopped - Provider: Lorin Morejon, TRACY)1610 (New Bag - Provider: Latosha Winston, RN)1910 (Stopped - Provider: Latosha Winston, RN)2353 (New Bag - Provider: Kaelyn Acuña RN) 0253 (Stopped - Provider: Kaelyn Acuña RN)0812 (New Bag - Provider: Lorin Morejon, RN)0842 (Stopped - Provider: Latosha Winston RN [...] Bhat RN)1226 (New Bag - Provider: Luz Bhat RN)1326 (Stopped - Provider: Luz Bhat RN)1726 (New Bag - Provider: Luz Bhat RN)1826 (Stopped - Provider: Luz Bhat RN)2038 (New Bag - Provider: Kaelyn Acuña RN)2138 (Stopped - Provider: Kaelyn Acuña RN) 0904 (New Bag - Provider: Latosha Winston, TRACY)1004 (Stopped - Provider: Latosha Winston, TRACY)1300 (New Bag - Provider: Latosha Winston, TRACY)1400 (Stopped - Provider: Latosha Winston, TRACY)1612 (New Bag - Provider: Latosha Winston, TRACY)1712 (Stopped - Provider: Latosha Winston, RN)2044 (New Bag - Provider: Kaelyn Acuña RN)2144 (Stopped - Provider: Kaelyn Acuña RN) 0813 (New Bag - Provider: Lorin Morejon, RN)0913 (Stopped - Provider: Latosha Winston, TRACY)1217 (New Bag - Provider: Lorin Morejon, TRACY)1317 (Stopped - Provider: Latosha Winston, RN) dilTIAZem (Cardizem) tablet 90 mg (CANCELED) 90 mg, Per G Tube, EVERY 6 HOURS SCHEDULED, First dose (after last modification) on Fri10/04/24 at 1800, Until Discontinued, Hold for HR less than or equal to 60bpm and/or SBP less than or equal to 100mmHg or on pressor, Routine 0021 (Given - Provider: Cameron Johnson RN)0610 (Given - Provider: Cameron Johnson RN)1226 (Given - Provider: Luz Bhat, TRACY)1727 (Given - Provider: Luz Bhat RN)2334 (Given - Provider: Kaelyn Acuña RN) 0556 [...] Kaelyn Acuña RN)1216 (Given - Provider: Lorin Morejon, TRACY) enoxaparin (Lovenox) (40 mg/0.4 mL) subcutaneous injection 40 mg 40 mg, Subcutaneous, NIGHTLY, First dose on Fri09/29/24 at 2100, Until Discontinued, Routine 2037 (Given - Provider: Kaelyn Acuña RN) 203 (Given - Provider: Kaelyn Acuña RN) free water for feeding tube 30 mL 30 mL, FEEDING TUBE, EVERY 4 HOURS SCHEDULED, First dose on Fri10/07/24 at 1230, Until Discontinued, Routine 0000 (Given - Provider: Cameron Johnson, RN)0400 (Given - Provider: Cameron Johnson RN)0800 (Given - Provider: Luz Bhat, TRACY)1200 (Given - Provider: Luz Bhat, RN)1600 (Given - Provider: Luz Bhat RN)2000 [...] - Comment: 149)1224 (Given - Provider: Lorin Moreojn RN - Comment: 157) insulin lispro (HumaLOG;Admelog) [...] kangaroo pump)1611 (Given - Provider: Latosha Winston RN)2044 (Given - Provider: Kaelyn Acuña RN) 0910 [...] Luz Bhat RN)203 (Given - Provider: Kaelyn Acuña, TRACY)2347 (Given - Provider: Kaelyn Acuña RN) 0400 [...] on Fri10/12/24 at 0900, Until Discontinued, Routine 08 (Given - Provider: Lorin Morejon RN) pantoprazole (Protonix) injection 40 mg 40 mg, Intravenous, DAILY, First dose on Fri09/29/24 at 1115, Until Discontinued, Reconstitute with 10 mL of normal saline to a concentration of 4 mg/mL and inject slowly over 2 minutes. 0809 (Given - Provider: Luz Bhat RN) 09 (Given - Provider: Latosha Winston RN) 09 (Given - Provider: Lorin Morejon RN) protein powder 2 Scoop, Per G Tube, 3 TIMES DAILY, First dose on Fri10/07/24 at 1500, Until Discontinued, Routine 0900 (Given - Provider: Luz Bhat RN)1500 (Given - Provider: Luz Bhat RN)2038 (Given - Provider: Kaelyn Acuña RN) 0900 (Given - Provider: Latosha Winston RN)1500 (Given - Provider: Latosha Winston RN)2038 (Given - Provider: Kaelyn Acuña RN) 0900 (Given - Provider: Lorin Morejon RN) sulfamethoxazole-trimet hoprim DS (Bactrim DS) 800-160 mg per tablet 1 tablet 1 tablet, Oral, EVERY 12 HOURS SCHEDULED (2 times per day), 8 doses, First dose on Fri10/12/24 at 0900, Last dose on Fri10/15/24 at 2100, Routine, Indication for (Active or Suspected): Urinary Tract/Pyelonephritis 09 (Given - Provider: Lorin Morejon RN) traZODone [...] other PRN pain medications are ordered., Routine 3 (Given - Provider: Kaelyn Acuña RN) bisacodyL [...] documented as of this encounter Care Teams Dampener Relationship Specialty Start Date End Date Leila Manjarrez [address] [place] [address] PCP - General Family Medicine 09/09/24 documented as of this encounter
--- OUTSIDE RECORDS SUMMARY | 2024-10-20 17:28 | XMS_ITS | Encounter Summary ---
Author Organization [facility] [place] [address] Care Team Providers Care Hospital Scientist Name Role Phone EvHina Leila Primary Care Provider [phone] Reason for Visit * Auth/Cert (Routine) Specialty Diagnoses / Procedures Referred By Contac t Referred To Contact Diagnoses Atrial fibrillation, unspecified type A fib ANGUS Procedures PRO PERQ CLSR TCAT L ATR APNDGE W/ENDOCARDIAL IMPLNT CARDIAC CATHETERIZATION @PERQ TRANSCATH CLOSURE LEFT ATRIAL APPENDAGE W ENDOCARDIAL IMPLANT, INC RAD S&I (WRVU 14) TRANSESOPHAGEAL ECHO DURING CATH/EP PROCEDURE Duane Causey MD [facility] [place] [address] [facility] Referral ID Status Reason Start Date Expiration Date Visits Re quested Visits Authorized [id number] 1 1 Encounter Details Date Type Department Care Team (Latest Contact Info) Description 09/16/2024 12:30 PM EDT [place] [address] Atrial fibrillation, unspecified type Social History Tobacco Use Types Packs/Day Years Used Date Smoking Tobacco: Former Cigarettes 2 30 1 973 - 2002 Smokeless Tobacco: Never Alcohol Use Standard Drinks/Week Comments Never 0 (1 standard drink = 0.6 oz pur e alcohol) [facility] Utilities Answer Date Recorded In the [...] any time in the past 12 m [facility], were you homeless or living in a residential (including now)? No 09/17/2024 DH IPV Inpatient [...] 11:15 AM EST Appointment Non-[place] [phone] 11/10/2024 8:00 AM EST Office Visit Neurology at [address] Clarisse Duke APRN [facility] [place] [address] 11/15/2024 10:[address] Scan at [place] [phone] Karli Morales MD [facility] [place] [address] 11/15/2024 11:20 AM EST Office [place] [phone] Marvin Kimball PA [facility] [place] [address] 12/15/2024 4:40 PM EST TH Visit (TeleHealth) [place] [address] Duane Causey MD [facility] [place] [address] documented as of this encounter Procedures Procedure Name Priority Date/Time Associated Diagnosis Comments ABORH RECHECK (PATIENT HISTORY FOUND) Routine 09/16/2024 10:29 AM EDT Atrial fibrillation, unspecified type TYPE AND SCREEN, SDP (FUTURE SURGERY, [facility] [place]) Routine 09/16/2024 10:29 AM EDT Atrial fibrillation, unspecified type CBC (WITH DIFF) Routine 09/16/2024 10:29 AM EDT Atrial fibrillation, unspecified type BASIC METABOLIC PANEL Routine 09/16/2024 10:29 AM EDT Atrial fibrillation, unspecified type documented in this encounter Results * ABORH RECHECK (PATIENT HISTORY FOUND) (09/16/2024 10:29 AM EDT) Pathologist [facility] ABORH Recheck Progress Complete 09/16/2024 1:01 PM EDT [facility] Blood VENOUS BLOOD SPECIMEN / Unknown Venipuncture / Unknown 09/16/2024 10:29 AM EDT 09/16/2024 10:29 AM EDT Eri Stovall APRN BLOOD BANK LAB ORD ERABLES [facility] [place] [address] * (ABNORMAL) Basic Metabolic Panel Fasting required (09/16/2024 10:29 AM EDT) Pathologist [facility] Glucose 111(H) 65 - 99 mg/dL 09/16/2024 11:34 AM EDT [facility] Comment: Fasting Glucose Interpretive Criteria: Normal: 65-99 mg/dL ?? Prediabetes: 100-125 mg/dL ?? Consistent with Diabetes Mellitus: > or = 126 mg/dL ?? Classification and Diagnosis of Diabetes: Standards of Care in Diabetes - 2022. Diabetes Care 202; 46:S19. Fasting is defined as no caloric intake for at least 8 hours. Blood Urea Nitrogen 17 8 - 18 mg/dL 09/16/2024 11:34 AM T [facility] Creatinine 0.68(L) 0.70 - 1.20 mg/dL 09/16/2024 11:34 AM [facility] Sodium 140 135 - 145 mMol/L 09/16/2024 11:34 AM [facility] Potassium 4.3 3.5 - 5.0 mMol/L 09/16/2024 11:34 AM [facility] Chloride 104 98 - 107 mMol/L 09/16/2024 11:34 AM [facility] Carbon Dioxide 27 22 - 31 mMol/L 09/16/2024 11:34 AM EDT [facility] Anion Gap 9 5 - 15 mMol/L 09/16/2024 11:34 AM EDT [facility] Calcium 9.5 8.5 - 10.5 mg/dL 09/16/2024 11:34 AM EDT [facility] Est Glomerular Filtration Rate - Female 93 mL/min/1. 73 m?? 09/16/2024 11:34 AM EDT [facility] Comment: This patient's estimated GFR [...] eGFR. Link: eGFR Calculator [employer] Fasting Status Yes 09/16/2024 11:34 AM EDT [facility] Blood VENOUS BLOOD SPECIMEN / Unknown Venipuncture / Unknown 09/16/2024 10:29 AM EDT 09/16/2024 10:29 AM EDT Eri Stovall APRN CHEMISTRY ORDERABL ES [facility] [place] [address] * (ABNORMAL) CBC (with Diff) (09/16/2024 10:29 AM EDT) White Blood Cell 9.46 4.00 - 9.50 x10(3)/mc L 09/16/2024 10:55 AM EDT [facility] Red Blood Cell 5.04 4.00 - 5.21 x10(6)/mc L 09/16/2024 10:55 AM EDT [facility] Hemoglobin 14.7 11.7 - 15.5 g/dL 09/16/2024 10:55 AM [facility] Hematocrit 45.6 35.7 - 45.8 % 09/16/2024 10:55 AM [facility] Mean Cell Volume 90.5 82.6 - 94.4 fL 09/16/2024 10:55 AM [facility] Mean Cell Hemoglobin 29.2 27.1 - 32.0 pg 09/16/2024 10:55 AM [facility] Mean Cell Hemoglobin Concentration 32.2 31.7 - 35.0 g/dL 09/16/2024 10:55 AM [facility] Platelet 311 145 - 357 x10(3)/mc L 09/16/2024 10:55 AM [facility] Mean Platelet Volume 10.2 7.6 - 12.9 fL 09/16/2024 10:55 AM [facility] RDW Standard Deviation 40.2 37.0 - 46.0 fL 09/16/2024 10:55 AM [facility] RDW coefficient of variation 12.2 11.5 - 14.1 % 09/16/2024 10:55 AM [facility] NRBC% auto 0.0 % 09/16/2024 10:55 AM [facility] NRBC Absolute <0.01 <0.01 x10(3)/mc L 09/16/2024 10:55 AM [facility] Neutrophil % 68.0 % 09/16/2024 10:55 AM [facility] Neutrophil Absolute (ANC) - Automated 6.43(H) 1.70 - 6.10 x10(3)/mc L 09/16/2024 10:55 AM [facility] Lymph % 22.1 % 09/16/2024 10:55 AM [facility] Lymph Absolute 2.09 0.90 - 3.20 x10(3)/mc L 09/16/2024 10:55 AM EDT [facility] Monocyte % 7.0 % 09/16/2024 10:55 AM EDT [facility] Monocyte Absolute 0.66 0.30 - 0.90 x10(3)/mc L 09/16/2024 10:55 AM EDT [facility] Eos % 2.1 % 09/16/2024 10:55 AM EDT [facility] Eos Absolute 0.20 0.00 - 0.40 x10(3)/mc L 09/16/2024 10:55 AM EDT [facility] Basophil % 0.4 % 09/16/2024 10:55 AM EDT [facility] Baso Absolute 0.04 0.00 - 0.10 x10(3)/mc L 09/16/2024 10:55 AM EDT [facility] Immature Gran % 0.4 % 10:55 AM EDT [facility] Immature Gran Absolute 0.04 0.00 - 0.04 x10(3)/mc L 09/16/2024 10:55 AM EDT [facility] Blood VENOUS BLOOD SPECIMEN / Unknown Venipuncture / Unknown 09/16/2024 10:29 AM EDT 09/16/2024 10:29 AM EDT Eri Stovall [employer] MACHINE OPERATOR HEMATOLOGY ORDERAB LES [facility] [place] [address] * Type and Screen Future Surgery, [facility] [place] [place] ONLY) (09/16/2024 10:29 AM EDT) PATIENT HISTORY Found 09/16/2024 12:02 PM EDT [facility] Expires at [id number] on: 09-19-2024 09/16/2024 12:02 PM EDT [facility] ABORH Type O POSITIVE 09/16/2024 12:02 PM EDT [facility] ANTIBODY SCREEN AUTOMATED Negative 09/16/2024 12:02 PM EDT [facility] T&S only valid at [facility] 09/16/2024 12:02 PM EDT [facility] Blood VENOUS BLOOD SPECIMEN / Unknown Venipuncture / Unknown 09/16/2024 10:29 AM EDT 09/16/2024 10:29 AM EDT Narrative [facility] - 09/16/2024 12:02 PM EDT This Type and Screen result is only valid at the [facility] Eri Stovall APRN BLOOD BANK LAB ORD ERABLES [facility] [place] [address] documented in this encounter Visit Diagnoses Diagnosis Atrial fibrillation, unspecified type documented in this encounter Care Teams Hospital Scientist Relationship Specialty Start Date End Date Leila Manjarrez [address] [place] [address] PCP - General Family Medicine 09/09/24 documented as of this encounter
--- OUTSIDE RECORDS SUMMARY | 2024-10-20 17:28 | XMS_ITS | Encounter Summary ---
Author Organization [facility] Address [facility] [place] [address] Care Team Providers Care Master Control Operator Name Role Phone EvHina Leila Primary Care Provider [phone] Encounter Details Date Type Department Care Team (Latest Contact Info) Description 09/16/2024 Travel Social History Tobacco Use Types Packs/Day Years Used Date Smoking Tobacco: Former Cigarettes 973 2002 Smokeless Tobacco: Never Alcohol Use Standard Drinks/Week Comments Never 0 (1 standard drink = 0.6 oz pur e alcohol) [facility] Utilities Answer Date Recorded In [...] place to sleep or slept in a chcf (including now)? No 03/03/2024 Housing Stability Vital Sign Answer Salvador e Recorded In the last 12 months, was t here a time when you were not able to pay the mortgage or rent on time? No 09/17/2024 In the past 12 months, how m any times have you moved where you were living? 0 09/17/2024 At any time in the past 12 m [facility], were you homeless or living in a chcf (including now)? No 09/17/2024 IPV Inpatient Questions [...] 11:15 AM EST Appointment Non-Invasive Cardiology Lab [place] [phone] 11/10/2024 8:00 AM EST Office Visit Neurology at [place] [phone] Clarisse Duke APRN [facility] [place] [address] 11/15/2024 10:[address] [place] [place] [phone] Karli Morales MD [facility] [place] [address] 11/15/2024 11:20 AM EST Office Visit Neurosurgery at [place] [address] Marvin Kimball PA [facility] [address] 12/15/2024 4:40 PM EST TH Visit (TeleHealth) Cardiology at [place] [phone] Duane Causey MD [facility] [place] [address] documented as of this encounter Visit Diagnoses Not on filedocumented in this encounter Care Teams Master Control Operator Relationship Specialty Start Date End Date Leila Manjarrez [address] [place] [address] PCP - General Family Medicine 09/09/24 documented as of this encounter
--- OUTSIDE RECORDS SUMMARY | 2024-10-20 17:30 | XMS_ITS | Encounter Summary ---
Author Organization [facility] [place] [address] Care Team Providers Care Plater Helper Name Role Phone EvHinaLeila Primary Care Provider [phone] Reason for Visit * Auth/Cert (Routine) Specialty Diagnoses / Procedures Referred By Contac t Referred To Contact Diagnoses Atrial fibrillation, unspecified type A fib ANGUS Procedures PRO PERQ CLSR TCAT L ATR APNDGE W/ENDOCARDIAL IMPLNT CARDIAC CATHETERIZATION @PERQ TRANSCATH CLOSURE LEFT ATRIAL APPENDAGE W ENDOCARDIAL IMPLANT, INC RAD S&I (WRVU 14) TRANSESOPHAGEAL ECHO DURING CATH/EP PROCEDURE Duane Causey MD [facility] [address] [place] [address] [facility] Referral ID Status Reason Start Date Expiration Date Visits Re quested Visits Authorized [id number] 1 1 Encounter Details Date Type Department Care Team (Late st Contact Info) Description 09/16/2024 11:30 AM EDT - 09/16/2024 1:30 PM EDT Surgery [place] [address] Duane Causey MD [facility] [place] [address] CARDIAC CATHETERIZATION Social History Tobacco Use Types Packs/Day Years Used Date Smoking Tobacco: Former Cigarettes 2 30 1 973 - 2002 Smokeless Tobacco: Never Alcohol Use Standard Drinks/Week Comments Never 0 (1 standard drink = 0.6 oz pur e alcohol) [facility] Utilities Answer Date Recorded In the [...] place to sleep or slept in a senior living (including now)? No 03/03/2024 Housing Stability Vital [...] were you homeless or living in a senior living (including now)? No 09/17/2024 DH IPV Inpatient [...] Sign Reading Time Taken Comments Blood Pressure 145/71 09/16/2024 12:58 PM EDT left arm 156 81 Pulse 65 09/16/2024 12:58 PM EDT Temperature 36.7 ??C (98.1 ??F) 09/16/2024 1 2:58 PM EDT Respiratory Rate 16 09/16/2024 12:5 8 PM EDT Oxygen Saturation 97% 09/16/2024 12: 58 PM EDT Inhaled Oxygen Concentration - - Weight 88.5 kg (195 lb) 09/16/2024 12:5 8 PM EDT Height 152.4 cm (5') 09/16/2024 12:58 PM EDT Body Mass Index 33.4 09/21/2024 6:38 PM EDT documented in this encounter Discharge Summaries * Val Connor PA - 10/12/2024 12:02 PM EST Images from the original note were not included. Discharge Summary Patient Name: Lucero Bruno Patient Age: 74 y.o. Language: [place] Admit date: 09/16/2024 Discharge date and time: [...] Calculated (Bezet) ms 449 446 Calculated P [place] degrees 44 36 Calculated R [place] degrees -22 -17 Calculated T [place] degrees 34 28 INTERPRETATION Sinus tachycardia with [...] who have questions please contact the health healthcare consultant that requested your imaging first. Electronically signed by: MICHELLE ARSHAD MD, [facility] ([phone]), at 3:00 PM XR Chest One View [...] who have questions please contact the health healthcare consultant that requested yourimaging first. Chest One View [...] who have questions please contact the health healthcare consultant that requested your imaging first. Chest One [...] who have questions please contact the health healthcare consultant that requested your imaging first. Chest One [...] who have questions please contact the health healthcare consultant that requested your imaging first. Chest One [...] who have questions please contact the health healthcare consultant that requested your imaging first. Chest One [...] who have questions please contact the health healthcare consultant that requested your imaging first. Chest One View Result Date: 09/17/2024 Satisfactorily positioned enteric and endotracheal tubes. Left lower lobe atelectasis versus pneumonia. Thank you for letting us participate in the care of this patient. If you are a health care provider and have any questions regarding this report, please contact the number below. For patients whohave questions please contact the health healthcare consultant that requested your imaging first. Head CT [...] who have questions please contact the health healthcare consultant that requested your imaging first. Head wo [...] who have questions please contact the health healthcare consultant that requested your imaging first. Head wo [...] who have questions please contact the health healthcare consultant that requested your imaging first. Head wo [...] patients who have questions pleasecontact the health healthcare consultant that requested your imaging first. Head wo [...] who have questions please contact the health healthcare consultant that requested your imaging first. Electronically signed by: Elvin Bolden DO, [facility] ([phone]),at 09/17/2024 8:55 AM --------ORIGINAL REPORT -------- EXAMINATION: [...] care of this patient. If you are [facility] care provider and have any questions regarding this report, please contact the number below.For patients who have questions please contact the health healthcare consultant that requested your imaging first. Electronically signed by: Elvin Bolden DO, [facility] ([phone]), at 8:38 AM Addendum Date: 09/17/2024 --------ADDENDUM [...] who have questions please contact the health healthcare consultant that requested yourimaging first. Result Date: 09/17/2024 Increased size and density [...] who have questions please contact the health healthcare consultant that requested your imaging first. Head wo Contrast (Generic) Result Date: 09/17/2024 [...] who have questions please contact the health healthcare consultant that requested your imaging first. Head wo [...] who have questions please contact the health healthcare consultant that requested your imaging first. Electronically signedby: Lana Reinoso [facility] ([phone]), at 09/16/2024 6:01 PM MRA Head and [...] who have questions please contact the health healthcare consultant that requested your imaging first. Brain wwo Contrast (Generic) Result Date: 09/20/2024 Unchanged size of large right cerebral hemisphere ICH status post partial evacuation. Numerous small foci of decreased acute infarction both along and separate from the site of hemorrhage. These fociare present in both cerebral hemispheres and have a pattern most consistent with embolic infarction. No evidence of REELER OPERATOR malignancy Thank you for letting us participate in the care of this patient. Ifyou are a health care provider and have any questions regarding this report, please contact the number below. For patients who have questions please contact the health healthcare consultant that requested your imaging first. Carotids/[place] No results found. 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: Cleared for purees with meds crushed 10/11 [...] 2 NIH Total Score 17 Discharge to: [facility] facility Updated Allergies/ADRs: Allergies Allergen Reactions Oxycodone-Acetaminophen Other (See Comments) Other reaction(s): hallucinations Alendronate Sodium Nausea Only Contact Metal Agent Immunizations Given this Hospitalization: Immunization History Administered Date(s) Administered Covid-19 Bivalent (Moderna Spikevax) 6mo+ (Age based Dosage) (8094-3794) 10/29/2023 Covid-19 Monovalent (Moderna Spikevax) 12yrs+ (4939-0457) 04/16/2022 Influenza Vaccine, Whole 11/11/2008 Discharge Medications: [...] stroke, and education on stroke follow-up. Modified [place] Score (MRS) on discharge Score Description 0 [...] were admitted to the neurology service at [facility] Your Diagnosis: hemorrhagic stroke secondary to [...] follow-up appointment in the neurology clinic at [facility]. See below for the appointment time. [...] may be billed similar to a regular xyir-hy-jnwv clinic visit. Primary Care Provider: Please follow up with your Primary Care Provider within one to 2 weeks of discharge. For questions regarding this document or issues relating to this hospitalization on the Neurology Service, please contact the author(s) of this discharge summary through the [facility] . If you need to cancel or reschedule, please call Dept: [phone] as soon as possible. This is helpful to us and other waiting patients. IF FOLLOW UP VISIT WITH STROKE TEAM IS NEEDED IN FORM OF TELEHEALTH: Please ensure you have an active WellTek account and are familiar with it. Also, please ensure an active email address. To sign up for a WellTek account, Visit the [email or web address] website and 1) choose ???create an account?? [...] created. If you need technical assistance call [phone] Friday through Friday, 7:30 am to 5:00 pm If you plan to join your Well[employer] Video Visit using your personal smartphone or tablet, prior to joining your visit you will need to download the Zoom jessi from the Jessi Store (for iPhone/iPad) or ZestFinance (for Android). Ifyou already have Zoom downloaded on your device for personal use, you???re good to go! 1. Open the Jessi Store or Google 265 Network Store on your device. 2. Search for Zoom and download the Zoom [place] [employer] jessi. ? Jessi Store Link: [email or web address]/jessi/lcve-[email or web address]-[email or web address] ? Google 265 Network Link: https://[employer]/store/apps/details?id=us.zoom.videomeetings If you plan to join your [facility] Video Visit using your computer or laptop, prior to joining your video visit you will need to download Zoom. If you already have Zoom downloaded on your machine for personal use, you???re good to go! 1. Open your web browser (Internet Explorer, Chrome, etc.). 2. Type zoom.us and press enter on your keyboard (or click this link: https://zocashcloud.us/). 3. In the top right corner of [...] link to connect to your visit withinyour [facility] portal. 1. Sign into your myD-H account. 2. Select Appointments. 3. Select your [facility] Video Visit and tap Begin Visit. [...] Starting 30 minutes prior to your scheduled [facility] Video Visit, you will find the link to connect tothe visit within your [facility] portal. 1. Sign into your [facility] account ([facility] portal link: [email or web address]). 2. On the top of the webpage, hover over Visits and select Appointments and Visits. 3. Click the Details button next to your [facility] video visit. 4. Click the Begin [...] anticoagulant, and non-steroidal anti-inflammatory (NSAIDs) drugs. Common xjer-own-lonxoau medications which should be avoided include Aspirin, [...] a head injury. - When your health healthcare consultant says you are well enough, return to your normal activities gradually, not all at once. - Talk with your health healthcare consultant about when you can return to work. DRIVING: - Do not drive while taking narcotic pain medication. [x] Do NOT drive until cleared by Neurosurgery. FOLLOW UP PLAN: Incision: [] Please follow up for suture/staple removal in 10-14 days with your Primary Care Provider or withthe Neurosurgery KINDERGARTNERS HELPER/RN. Appointments: [x] Please follow up in the Neurosurgery Clinic in 4 weeks. Please call the Neurosurgery Office at [phone] if you do not receive a scheduled [...] 11:15 AM TRANSESOPHAGEAL ECHO Non-Invasive Cardiology Lab [facility] Arrive at: Pricing Coordinator Area 4W [phone] Check-in at [facility] 4W. PATIENT INSTRUCTIONS: Nothing to eat or drink after midnight. You will be sedated for your test and will need someone to drive you home. Bring a complete list of your medications. Check-in at [facility] 4W . PROCEDURE INSTRUCTIONS:Nothing to eat or drink after midnight. You will be sedated for your test and will need someone to drive you home. 11/10/2024 8:00 AM Clarisse Duke APRN Neurology at [facility] Arrive at: Pricing Coordinator Area 3C [phone] 12/15/2024 4:40 PM Duane Causey MD Cardiology at [facility] Arrive at: Home [phone] Please do not come in for this visit. Your provider will call you at the number you provided. Future Orders Complete By Expires IR Suture Release [[id number] Custom] 10/11/2024 12/04/2024 Process Instructions: Scheduling Instructions: Comments: Questions: Where will study be performed?: [facility] Radiology To be scheduled: Next available after expected date Reason for exam and clinical history: G tube placed 10/04, 7-10 day pexy release Exam/Procedure requested: What labs need to be collected during imaging study?: Is the patient on anticoagulant / antiplatelet therapy ?: No Does patient require sedation?: CT Head wo Contrast (Generic) [[id number] Custom] 11/11/2024 02/09/2025 Process Instructions: Scheduling Instructions: Questions: Where will study be performed?: [facility] Radiology To be scheduled: Next available after expected date Is this imaging required as part of a research protocol?: No Reason for exam and clinical history: Follow up ICH in the setting of CAA Stat read required?: Does patient require sedation?: Primary Care Provider: Leila Manjarrez [address] / [place] [address] Discharge References/Attachments None documented in this encounter [...] anticoagulant, and non-steroidal anti-inflammatory (NSAIDs) drugs. Common nacs-frf-bnzqozv medications which should be avoided include Aspirin, [...] a head injury. - When your health healthcare consultant says you are well enough, return to your normal activities gradually, not all at once. - Talk with your health healthcare consultant about when you can return to work. DRIVING: - Do not drive while taking narcotic pain medication. [x] Do NOT drive until cleared by Neurosurgery. FOLLOW UP PLAN: Incision: [] Please follow up for suture/staple removal in 10-14 days with your Primary Care Provider or withthe Neurosurgery KINDERGARTNERS HELPER/RN. Appointments: [x] Please follow up in the Neurosurgery Clinic in 4 weeks. Please call the Neurosurgery Office at [phone] if you do not receive a scheduled [...] were admitted to the neurology service at [facility] Your Diagnosis: hemorrhagic stroke secondary to [...] follow-up appointment in the neurology clinic at [facility]. See below for the appointment time. [...] may be billed similar to a regular zlaa-sv-vepr clinic visit. Primary Care Provider: Please follow up with your Primary Care Provider within one to 2 weeks of discharge. For questions regarding this document or issues relating to this hospitalization on the Neurology Service, please contact the author(s) of this discharge summary through the [facility]room[facility] . If you need to cancel or reschedule, please call Dept: [phone] as soon as possible. This is helpful to us and other waiting patients. IF FOLLOW UP VISIT WITH STROKE TEAM IS NEEDED IN FORM OF TELEHEALTH: Please ensure you have an active WellTek account and are familiar with it. Also, please ensure an active email address. To sign up for a WellTek account, Visit the [email or web address] website and 1) choose ???create an account?? [...] created. If you need technical assistance call [phone] Friday through Friday, 7:30 am to 5:00 pm If you plan to join your [facility] Video Visit using your personal smartphone or tablet, prior to joining your visit you will need to download the Zoom jessi from the Jessi Store (for iPhone/iPad) or ZestFinance (for Android). Ifyou already have Zoom downloaded on your device for personal use, you???re good to go! 1. Open the Jessi Store or ZestFinance Store on your device. 2. Search for Zoom and download the Zoom [place] [employer] jessi. ? Jessi Store Link: https://[email or web address].Novaliq/us/jessi/dqsl-dthrt-mlzduneq/[email or web address] ? Google 265 Network Link: https://[employer]/store/apps/details?id=us.zoom.videomeetings If you plan to join your [facility] Video Visit using your computer or [...] link to connect to your visit withinyour WellTek portal. 1. Sign into your WellTek account. 2. Select Appointments. 3. Select your [facility] Video Visit and tap Begin Visit. [...] Starting 30 minutes prior to your scheduled [facility] Video Visit, you will find the link to connect tothe visit within your WellTek portal. 1. Sign into your WellTek account (WellTek portal link: [email or web address]). 2. On the top of the webpage, hover over Visits and select Appointments and Visits. 3. Click the Details button next to your [facility] video visit. 4. Click the Begin [...] att. providers found Primary Provider: Leila Manjarrez [phone] Hospital Day: Hospital Day: 27 Patient ID [...] Procedure Component Value - Date/Time Urine culture [[id number]] (Abnormal) (Susceptibility) Collected: 10/09/24 1043 Lab Status: [...] Susceptible Piperacillin/Tazobactam Susceptible Trimethoprim/Sulfa Susceptible COVID-19 PCR [[id number]] (Normal) Collected: 10/11/24 1626 Lab Status: Final result Specimen: Swab from Nasopharynx Updated: 10/11/24 1904 SARS-CoV-2 RNA (Rapid) Not Detected Imaging/EKG Results for orders placed or performed during the hospital encounter of 09/16/24 CT Head wo Contrast (Generic) (Exam End: 09/16/2024 5:26 PM) Result Value WORKSTATION ID [id number] Impression Interval expansion of now large right-sided [...] who have questions please contact the health healthcare consultant that requested your imaging first. Head wo Contrast (Generic) (Exam End: 09/16/2024 11:21 PM) Result Value WORKSTATION ID [id number] Impression CT head: 1. Interval craniotomy with [...] who have questions please contact the health healthcare consultant that requested your imaging first. Venogram Brain (Exam End: 09/16/2024 11:21 PM) Result Value WORKSTATION ID [id number] Impression CT head: 1. Interval craniotomy with [...] who have questions please contact the health healthcare consultant that requested your imaging first. Chest One View (Exam End: 09/16/2024 11:00 PM) Result Value WORKSTATION ID [id number] Impression Satisfactorily positioned enteric and endotracheal tubes. Left lower lobe atelectasis versus pneumonia. Thank you for letting us participate in the care of this patient. If you are a health care provider and have any questions regarding this report, please contact the number below. For patients who have questions please contact the health healthcare consultant that requested your imaging first. Abdomen 1 view (Generic) (Exam End: 09/16/2024 11:00 PM) Result Value WORKSTATION ID [id number] Impression Satisfactorily positioned enteric and endotracheal tubes. Left lower lobe atelectasis versus pneumonia. Thank you for letting us participate in the care of this patient. If you are a health care provider and have any questions regarding this report, please contact the number below. For patients who have questions please contact the health healthcare consultant that requested your imaging first. Head wo Contrast (Generic) (Exam End: 09/17/2024 4:51 AM) Result Value WORKSTATION ID [id number] Impression Increased size and density of dominant [...] who have questions please contact the health healthcare consultant that requested your imaging first. Chest One View (Exam End: 09/17/2024 2:13 PM) Result Value WORKSTATION ID [id number] Impression 1. No focal opacity in lung [...] who have questions please contact the health healthcare consultant that requested your imaging first. Chest One View (Exam End: 09/18/2024 8:43 AM) Result Value WORKSTATION ID [id number] Impression Tubes and lines as described. Blunting of the left costophrenic angle suggests tiny layering left effusion with associated left basilar consolidation/atelectasis Thank you for letting us participate in the care of this patient. If you are a health care provider and have any questions regarding this report, please contact the number below. For patients who have questions please contact the health healthcare consultant that requested your imaging first. Abdomen 1 view (Generic) (Exam End: 09/18/2024 12:31 PM) Result Value WORKSTATION ID [id number] Impression Dobbhoff tube tip along the greater curve of the stomach. Thank you for letting us participate in the care of this patient. If you are a health care provider and have any questions regarding this report, please contact the number below. For patients who have questions please contact the health healthcare consultant that requested your imaging first. Brain wwo Contrast (Generic) (Exam End: 09/19/2024 5:43 PM) Result Value WORKSTATION ID [id number] Impression Unchanged size of large right cerebral hemisphere ICH status post partial evacuation. Numerous small foci of decreased acute infarction both along and separate from the site of hemorrhage. These foci are present in both cerebral hemispheres and have a pattern most consistent with embolic infarction. No evidence of REELER OPERATOR malignancy Thank you for letting us participate in the care of this patient. If you are a health care provider and have any questions regarding this report, please contact the number below. For patients who have questions please contact the health healthcare consultant that requested your imaging first. Head wo Contrast (Generic) (Exam End: 09/21/2024 3:50 AM) Result Value WORKSTATION ID [id number] Impression Stable hemorrhage right temporal, parietal, right [...] who have questions please contact the health healthcare consultant that requested your imaging first. Abdomen 1 view (Generic) (Exam End: 09/21/2024 2:01 PM) Result Value WORKSTATION ID [id number] Impression Dobbhoff tube and enteric tube sidehole [...] who have questions please contact the health healthcare consultant that requested your imaging first. Chest One View (Exam End: 09/21/2024 2:01 PM) Result Value WORKSTATION ID [id number] Impression ET tube with tip projecting approximately [...] who have questions please contact the health healthcare consultant that requested your imaging first. Head wo Contrast (Generic) (Exam End: 09/22/2024 4:02 AM) Result Value WORKSTATION ID [id number] Impression Stable head CT status post removal of subcutaneous drain. No new or enlarging hemorrhage. Stable pattern of mass effect Thank you for letting us participate in the care of this patient. If you are a health care provider and have any questions regarding this report, please contact the number below. For patients who have questions please contact the health healthcare consultant that requested your imaging first. Angiogram Chest for Pulmonary Embolus w Contrast (Exam End: 09/26/2024 1:37 PM) Result Value WORKSTATION ID [id number] Impression 1. No pulmonary embolism. 2. Pulmonary [...] who have questions please contact the health healthcare consultant that requested your imaging first. Head wo Contrast (Generic) (Exam End: 09/26/2024 1:37 PM) Result Value WORKSTATION ID [id number] Impression 1. Stable right-sided parenchymal and subdural [...] who have questions please contact the health healthcare consultant that requested your imaging first. Abdomen & Pelvis w Contrast (Exam End: 09/26/2024 1:37 PM) Result Value WORKSTATION ID [id number] Impression 1. No pulmonary embolism. 2. Pulmonary [...] who have questions please contact the health healthcare consultant that requested your imaging first. Chest One View (Exam End: 09/28/2024 4:06 AM) Result Value WORKSTATION ID [id number] Impression 1. Limited examination. 2. Interval removal [...] who have questions please contact the health healthcare consultant that requested your imaging first. Chest One View (Exam End: 09/28/2024 7:58 PM) Result Value WORKSTATION ID [id number] Impression 1. Slightly increased opacity in the [...] who have questions please contact the health healthcare consultant that requested your imaging first. Chest One View (Exam End: 09/29/2024 1:13 PM) Result Value WORKSTATION ID [id number] Impression 1. Limited examination. 2. Stable position [...] who have questions please contact the health healthcare consultant that requested your imaging first. Head wo Contrast (Generic) (Exam End: 10/04/2024 1:40 AM) Result Value WORKSTATION ID [id number] Impression 1. Overall interval improvement of the [...] who have questions please contact the health healthcare consultant that requested your imaging first. Brain wwo Contrast (Generic) (Exam End: 10/04/2024 10:30 PM) Result Value WORKSTATION ID [id number] Impression 1. Fluid collections in the right [...] who have questions please contact the health healthcare consultant that requested your imaging first. Chest One View (Exam End: 10/06/2024 10:59 AM) Result Value WORKSTATION ID [id number] Impression Improved but persistent retrocardiac patchy opacity [...] who have questions please contact the health healthcare consultant that requested your imaging first. Fluoro Esophagram (Modified/Video Swallow Pharynx) (Exam End: 10/08/2024 4:10 PM) Result Value WORKSTATION ID [id number] Impression Abnormal modified barium swallow with silent [...] who have questions please contact the health healthcare consultant that requested your imaging first. Electronically signed by: Victor Manuel Smith MD, [facility] ([phone]), at 10/08/2024 4:[address] Head wo Contrast (Generic) (Exam End: 10/07/2024 3:25 PM) Result Value WORKSTATION ID [id number] Impression 1. Interval decreased prominence of RIGHT [...] who have questions please contact the health healthcare consultant that requested your imaging first. SSMENT & [...] PRN #GI - >dysphagia - follow up WOOD FLOOR LAYER recs - Puree diet - Tube feeds [...] Other - Activity: as tolerated - [facility]po[facility] - Last BM: Last Bowel Movement: 10/12/24 - code status: Attempt Cardiopulmonary Resuscitation - Inpatient Patient Lines/Drains/Airways Status Active Tubes/Lines/Drains Name Placement date Placement time Site Days Enterostomy Tube 10/04/24 1236 gastrostomy tube with balloon midline 10/04/24 1236 -- 8 Please page Vascular Neurology with any questions, #[id number] ADRIANA [place] [address] Associated attestation - Karli Morales MD - [...] Dheeraj Moreira - 10/12/2024 1:41 PM EST Hvac Installation Technician Encounter Note Patient Name: Lucero Bruno : [id number] MR#: [id number] Admit Date: 09/16/2024 10:06 AM Hospital Day 26 days Narrative:Follow-up visit for continued assessment and support. Assessment:Family coping positively with stresses of illness/hospitalization at this time. I met with patient family member and he shared that she is feeling better and hoping to go rehab then home. Intervention and Outcome:Provided emotional, spiritual support and listening presence. Hvac Installation Technician services accepted. Conversation to build trusting relationship. [...] General Information Lucero Bruno 1950 Medicare Number: [id number] Transport Date: 10/12/2024 (PCS is valid for round trips on this date and for all repetitive trips in the 60-day range as noted below.) Origion: [facility] Spec [id number] Dest[facility]: [facility] [address] [place] [address] Is the patient's stay covered under Medicare [...] van (i.e. seated during transport, without medical underwriter or monitoring?): No 4) In addition to [...] by the Centers of Medicare and Medicaid [facility] ([facility]) to support the determination of medical necessity [...] attending physician, this form was signed by Machine Printer * Chet Cloud - 10/12/2024 7:41 AM EST Office of Care Management/Casting Supervisor Patient Name: Lucero Bruno : 1950 Patient has been offered a SNF bed at [facility] for today, 10/12/24 [facility] arranged for a 1330 transport. Ambulance will need: Medicare ambulance form completed and signed (MD or Retail Merchandising Coordinator RN/RAMP SUPERVISOR) Copy of patient demographics [place] or [place] Out of Hospital DNR/DNI order, if active No MD to MD report necessary Please call Nursing Report to and ask for A Wing industrial automation engineer. Info to accompany patient: Copies of Medication Administration Records and IV sheets for past 10 days. Plan: Casting Supervisor will be available to the patient and Retail Merchandising Coordinator-RN and/or Social Workerfor further assistance. Patient will be discharged to: [facility] Chet Cloud Casting Supervisor * Seth Avila - 10/11/2024 2:58 PM [...] Nutrition Recommendations: Puree diet, thin liquids per WOOD FLOOR LAYER 10/11. Continue bolus feeds of Nutren 1.5 [...] Per NG tube CONTINUOUS 10/02/24 1037 10/03/24 1589 Average tube feeding provision over past 3 [...] of this encounter: 77.6 kg (171 lb). [place] Body Weight (IBW) (kg): 45.45 Wt Readings [...] feeds. Order pended and team paged. 10/06: WOOD FLOOR LAYER continues to recommend NPO, per note 10/05. [...] VHP rather than Nutren 1.5, team aware. WOOD FLOOR LAYER continues to recommend NPO per 09/30 note. LBM 09/29, optimize regimen. Per EMR, pt with 4% wt loss in <1 week (196lbs on 09/24 to 188lbs on 09/28) which is clinically significant. Unable to complete full NFPE at this time. Planned for upcoming PEG placement. 09/29: TF Dc'd 09/28 @ 1835hr. WOOD FLOOR LAYER continues to recommend NPO, need for alternate [...] maxillary line): Not assessed Lean Muscle Loss Jain region (temporalis muscle): None present Clavicle bone [...] RD, LD Clinical Nutrition * Areli Hathaway, WOOD FLOOR LAYER - 10/11/2024 2:17 PM EST Speech Therapy Note Patient Profile: Lucero Bruno is a 74 y.o. female with PMHx of A-fib, CHRISTOPHER, HLD, and prior IPH (04/2024) who presented [facility] on 09/16/2024 for placement of Watchman with cardiology. She developed headaches and nausea post-operatively and was found to have a large R pyeedkql-lwmmpli-aegaehndq IPH, now s/p craniotomy. Patient was intubated from 09/16-09/21 with extubation complicated by stridor requiring re-intubation from 09/21-09/26 (11 days total). WOOD FLOOR LAYER has been following since 09/27 for communication [...] Comments Thin liquids X Water via straw [place] thick liquids Honey thick liquids Pureed solids [...] intake. Aubree's recent modified barium swallow revealed fmyo-ki-sthpnhce oropharyngeal dysphagia with primary deficits including prolonged [...] assistance due to significant motor limitations. Diagnosis: Nktg-ys-rnfhvuhe oropharyngeal dysphagia 2/2 IPH, dysphonia 2/2 IPH [...] instrumental swallow evaluation. MET Plan: Therapy Frequency (WOOD FLOOR LAYER Eval): 3-5 times/wk Patient is in agreement with the plan of care. Total Minutes (Speech Language Pathology): 40 Areli Hathaway MS, [facility]-WOOD FLOOR LAYER Speech-Language Pathologist Inpatient Rehabilitation Pager # [phone] * Kymberly Baptiste, PT - 10/11/2024 10:01 AM EST Physical Therapy Note Treatment Number PT: 7 Patient profile: Lucero Bruno ( ) is a 74 y.o. 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 for watchman procedure subsequently developing a large [...] in all aspects. 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 [...] plan as stated. Time IN / OUT: 7952-3048 Total Minutes, Physical Therapy: 24 Billing Code: TEF1 Kymberly Baptiste PT, DPT, NCS Pager: [phone] Physical Therapy Inpatient Rehabilitation Department * Lucie Caldera OT - 10/11/2024 9:36 AM EST Occupational Therapy Treatment Note Treatment Number OT: 6 Patient Dx:Lucero Bruno is a 74 y.o. female admitted on 09/16/2024. 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 today for watchman procedure subsequently developing a [...] and therapy goals. Anticipated Discharge Disposition (OT): [facility] facility Equipment Recommendations: Equipment Needs Upon Discharge [...] OTR/L Occupational Therapy Rehabilitation Department Pager # [phone] * Val Connor PA - 10/11/2024 9:13 AM EST Images from the original note were not included. VASCULAR NEUROLOGY DAILY PROGRESS NOTE Admit Date 09/16/2024 Responsible Attending: Karli Morales MD Primary Provider: Leila Manjarrez [phone] Hospital Day: Hospital Day: 26 Patient ID [...] ml Net -1260 ml Labs Recent Labs 10/10/24234910/10/244 10/09/249 10/08/243 10/07/24 011 WBC 9.97* 10.15* 12.45* 11.43* 15.48* HGB 10.9* 11.3* 10.4* 10.0* 10.7* HCT 33.9* 34.7* 32.1* 31.2* 32.4* PLATELET 260 230 207 190 211 NEUTROABS 7.49* 7.26* 9.95* 9.01* 13.16* Recent Labs 10/10/24234910/10/244310/09/245810/08/243 10/07/24111 NA 139 138 140 138 138 K [...] 09/16/2024 5:26 PM) Result Value WORKSTATION ID [id number] Impression Interval expansion of now large right-sided [...] who have questions please contact the health healthcare consultant that requested your imaging first. Head wo Contrast (Generic) (Exam End: 09/16/2024 11:21 PM) Result Value WORKSTATION ID [id number] Impression CT head: 1. Interval craniotomy with [...] who have questions please contact the health healthcare consultant that requested your imaging first. Venogram Brain (Exam End: 09/16/2024 11:21 PM) Result Value WORKSTATION ID [id number] Impression CT head: 1. Interval craniotomy with [...] who have questions please contact the health healthcare consultant that requested your imaging first. Chest One View (Exam End: 09/16/2024 11:00 PM) Result Value WORKSTATION ID [id number] Impression Satisfactorily positioned enteric and endotracheal tubes. Left lower lobe atelectasis versus pneumonia. Thank you for letting us participate in the care of this patient. If you are a health care provider and have any questions regarding this report, please contact the number below. For patients who have questions please contact the health healthcare consultant that requested your imaging first. Abdomen 1 view (Generic) (Exam End: 09/16/2024 11:00 PM) Result Value WORKSTATION ID [id number] Impression Satisfactorily positioned enteric and endotracheal tubes. Left lower lobe atelectasis versus pneumonia. Thank you for letting us participate in the care of this patient. If you are a health care provider and have any questions regarding this report, please contact the number below. For patients who have questions please contact the health healthcare consultant that requested your imaging first. Head wo Contrast (Generic) (Exam End: 09/17/2024 4:51 AM) Result Value WORKSTATION ID [id number] Impression Increased size and density of dominant [...] who have questions please contact the health healthcare consultant that requested your imaging first. Chest One View (Exam End: 09/17/2024 2:13 PM) Result Value WORKSTATION ID [id number] Impression 1. No focal opacity in lung [...] who have questions please contact the health healthcare consultant that requested your imaging first. Chest One View (Exam End: 09/18/2024 8:43 AM) Result Value WORKSTATION ID [id number] Impression Tubes and lines as described. Blunting of the left costophrenic angle suggests tiny layering left effusion with associated left basilar consolidation/atelectasis Thank you for letting us participate in the care of this patient. If you are a health care provider and have any questions regarding this report, please contact the number below. For patients who have questions please contact the health healthcare consultant that requested your imaging first. Abdomen 1 view (Generic) (Exam End: 09/18/2024 12:31 PM) Result Value WORKSTATION ID [id number] Impression Dobbhoff tube tip along the greater curve of the stomach. Thank you for letting us participate in the care of this patient. If you are a health care provider and have any questions regarding this report, please contact the number below. For patients who have questions please contact the health healthcare consultant that requested your imaging first. Brain wwo Contrast (Generic) (Exam End: 09/19/2024 5:43 PM) Result Value WORKSTATION ID [id number] Impression Unchanged size of large right cerebral hemisphere ICH status post partial evacuation. Numerous small foci of decreased acute infarction both along and separate from the site of hemorrhage. These foci are present in both cerebral hemispheres and have a pattern most consistent with embolic infarction. No evidence of REELER OPERATOR malignancy Thank you for letting us participate in the care of this patient. If you are a health care provider and have any questions regarding this report, please contact the number below. For patients who have questions please contact the health healthcare consultant that requested your imaging first. Head wo Contrast (Generic) (Exam End: 09/21/2024 3:50 AM) Result Value WORKSTATION ID [id number] Impression Stable hemorrhage right temporal, parietal, right [...] who have questions please contact the health healthcare consultant that requested your imaging first. Abdomen 1 view (Generic) (Exam End: 09/21/2024 2:01 PM) Result Value WORKSTATION ID [id number] Impression Dobbhoff tube and enteric tube sidehole [...] who have questions please contact the health healthcare consultant that requested your imaging first. Chest One View (Exam End: 09/21/2024 2:01 PM) Result Value WORKSTATION ID [id number] Impression ET tube with tip projecting approximately [...] who have questions please contact the health healthcare consultant that requested your imaging first. Head wo Contrast (Generic) (Exam End: 09/22/2024 4:02 AM) Result Value WORKSTATION ID [id number] Impression Stable head CT status post removal of subcutaneous drain. No new or enlarging hemorrhage. Stable pattern of mass effect Thank you for letting us participate in the care of this patient. If you are a health care provider and have any questions regarding this report, please contact the number below. For patients who have questions please contact the health healthcare consultant that requested your imaging first. Angiogram Chest for Pulmonary Embolus w Contrast (Exam End: 09/26/2024 1:37 PM) Result Value WORKSTATION ID [id number] Impression 1. No pulmonary embolism. 2. Pulmonary [...] who have questions please contact the health healthcare consultant that requested your imaging first. Head wo Contrast (Generic) (Exam End: 09/26/2024 1:37 PM) Result Value WORKSTATION ID [id number] Impression 1. Stable right-sided parenchymal and subdural [...] who have questions please contact the health healthcare consultant that requested your imaging first. Abdomen & Pelvis w Contrast (Exam End: 09/26/2024 1:37 PM) Result Value WORKSTATION ID [id number] Impression 1. No pulmonary embolism. 2. Pulmonary [...] who have questions please contact the health healthcare consultant that requested your imaging first. Chest One View (Exam End: 09/28/2024 4:06 AM) Result Value WORKSTATION ID [id number] Impression 1. Limited examination. 2. Interval removal [...] who have questions please contact the health healthcare consultant that requested your imaging first. Chest One View (Exam End: 09/28/2024 7:58 PM) Result Value WORKSTATION ID [id number] Impression 1. Slightly increased opacity in the [...] who have questions please contact the health healthcare consultant that requested your imaging first. Chest One View (Exam End: 09/29/2024 1:13 PM) Result Value WORKSTATION ID [id number] Impression 1. Limited examination. 2. Stable position [...] who have questions please contact the health healthcare consultant that requested your imaging first. Head wo Contrast (Generic) (Exam End: 10/04/2024 1:40 AM) Result Value WORKSTATION ID [id number] Impression 1. Overall interval improvement of the [...] who have questions please contact the health healthcare consultant that requested your imaging first. Brain wwo Contrast (Generic) (Exam End: 10/04/2024 10:30 PM) Result Value WORKSTATION ID [id number] Impression 1. Fluid collections in the right [...] who have questions please contact the health healthcare consultant that requested your imaging first. Chest One View (Exam End: 10/06/2024 10:59 AM) Result Value WORKSTATION ID [id number] Impression Improved but persistent retrocardiac patchy opacity [...] who have questions please contact the health healthcare consultant that requested your imaging first. Fluoro Esophagram (Modified/Video Swallow Pharynx) (Exam End: 10/08/2024 4:10 PM) Result Value WORKSTATION ID [id number] Impression Abnormal modified barium swallow with silent [...] who have questions please contact the health healthcare consultant that requested your imaging first. Electronically signed by: Victor Manuel Smith MD, [facility] ([phone]), at 10/08/2024 4:[address] Head wo Contrast (Generic) (Exam End: 10/07/2024 3:25 PM) Result Value WORKSTATION ID [id number] Impression 1. Interval decreased prominence of RIGHT [...] who have questions please contact the health healthcare consultant that requested your imaging first. SSMENT & PLAN Lucero Bruno 74 y.o. female with PMHx RIGHT occipital hemorrhage, chronic a-fib presented for watchman procedure. Patient developed headache after procedure and was taken to CT where she was found to have RIGHT IPH with mass effect and midline shift s/p craniotomy. CAA confirmed by surgical path 10/11/24-Birminghampia Bruno is neurologically stable, working on titrating [...] PRN #GI - >dysphagia - follow up WOOD FLOOR LAYER recs - Sips and Chips (Hold Meds) [...] Other - Activity: as tolerated - [facility]po: [facility] - Last BM: Last Bowel Movement: [...] Please page Vascular Neurology with any questions, #[id number] ADRIANA Aguirre Department of Neurology [place] [id number] Associated attestation - Karli Morales MD - [...] Karli Morales MD Primary Provider: Leila Manjarrez [phone] Hospital Day: Hospital Day: 25 Patient ID [...] 09/16/2024 5:26 PM) Result Value WORKSTATION ID [id number] Impression Interval expansion of now large right-sided [...] who have questions please contact the health healthcare consultant that requested your imaging first. Head wo Contrast (Generic) (Exam End: 09/16/2024 11:21 PM) Result Value WORKSTATION ID [id number] Impression CT head: 1. Interval craniotomy with [...] who have questions please contact the health healthcare consultant that requested your imaging first. Venogram Brain (Exam End: 09/16/2024 11:21 PM) Result Value WORKSTATION ID [id number] Impression CT head: 1. Interval craniotomy with [...] who have questions please contact the health healthcare consultant that requested your imaging first. Chest One View (Exam End: 09/16/2024 11:00 PM) Result Value WORKSTATION ID [id number] Impression Satisfactorily positioned enteric and endotracheal tubes. Left lower lobe atelectasis versus pneumonia. Thank you for letting us participate in the care of this patient. If you are a health care provider and have any questions regarding this report, please contact the number below. For patients who have questions please contact the health healthcare consultant that requested your imaging first. Abdomen 1 view (Generic) (Exam End: 09/16/2024 11:00 PM) Result Value WORKSTATION ID [id number] Impression Satisfactorily positioned enteric and endotracheal tubes. Left lower lobe atelectasis versus pneumonia. Thank you for letting us participate in the care of this patient. If you are a health care provider and have any questions regarding this report, please contact the number below. For patients who have questions please contact the health healthcare consultant that requested your imaging first. Head wo Contrast (Generic) (Exam End: 09/17/2024 4:51 AM) Result Value WORKSTATION ID [id number] Impression Increased size and density of dominant [...] who have questions please contact the health healthcare consultant that requested your imaging first. Chest One View (Exam End: 09/17/2024 2:13 PM) Result Value WORKSTATION ID [id number] Impression 1. No focal opacity in lung [...] who have questions please contact the health healthcare consultant that requested your imaging first. Chest One View (Exam End: 09/18/2024 8:43 AM) Result Value WORKSTATION ID [id number] Impression Tubes and lines as described. Blunting of the left costophrenic angle suggests tiny layering left effusion with associated left basilar consolidation/atelectasis Thank you for letting us participate in the care of this patient. If you are a health care provider and have any questions regarding this report, please contact the number below. For patients who have questions please contact the health healthcare consultant that requested your imaging first. Abdomen 1 view (Generic) (Exam End: 09/18/2024 12:31 PM) Result Value WORKSTATION ID [id number] Impression Dobbhoff tube tip along the greater curve of the stomach. Thank you for letting us participate in the care of this patient. If you are a health care provider and have any questions regarding this report, please contact the number below. For patients who have questions please contact the health healthcare consultant that requested your imaging first. Brain wwo Contrast (Generic) (Exam End: 09/19/2024 5:43 PM) Result Value WORKSTATION ID [id number] Impression Unchanged size of large right cerebral hemisphere ICH status post partial evacuation. Numerous small foci of decreased acute infarction both along and separate from the site of hemorrhage. These foci are present in both cerebral hemispheres and have a pattern most consistent with embolic infarction. No evidence of REELER OPERATOR malignancy Thank you for letting us participate in the care of this patient. If you are a health care provider and have any questions regarding this report, please contact the number below. For patients who have questions please contact the health healthcare consultant that requested your imaging first. Head wo Contrast (Generic) (Exam End: 09/21/2024 3:50 AM) Result Value WORKSTATION ID [id number] Impression Stable hemorrhage right temporal, parietal, right [...] who have questions please contact the health healthcare consultant that requested your imaging first. Abdomen 1 view (Generic) (Exam End: 09/21/2024 2:01 PM) Result Value WORKSTATION ID [id number] Impression Dobbhoff tube and enteric tube sidehole [...] who have questions please contact the health healthcare consultant that requested your imaging first. Chest One View (Exam End: 09/21/2024 2:01 PM) Result Value WORKSTATION ID [id number] Impression ET tube with tip projecting approximately [...] who have questions please contact the health healthcare consultant that requested your imaging first. Head wo Contrast (Generic) (Exam End: 09/22/2024 4:02 AM) Result Value WORKSTATION ID [id number] Impression Stable head CT status post removal of subcutaneous drain. No new or enlarging hemorrhage. Stable pattern of mass effect Thank you for letting us participate in the care of this patient. If you are a health care provider and have any questions regarding this report, please contact the number below. For patients who have questions please contact the health healthcare consultant that requested your imaging first. Angiogram Chest for Pulmonary Embolus w Contrast (Exam End: 09/26/2024 1:37 PM) Result Value WORKSTATION ID [id number] Impression 1. No pulmonary embolism. 2. Pulmonary [...] who have questions please contact the health healthcare consultant that requested your imaging first. Head wo Contrast (Generic) (Exam End: 09/26/2024 1:37 PM) Result Value WORKSTATION ID [id number] Impression 1. Stable right-sided parenchymal and subdural [...] who have questions please contact the health healthcare consultant that requested your imaging first. Abdomen & Pelvis w Contrast (Exam End: 09/26/2024 1:37 PM) Result Value WORKSTATION ID [id number] Impression 1. No pulmonary embolism. 2. Pulmonary [...] who have questions please contact the health healthcare consultant that requested your imaging first. Chest One View (Exam End: 09/28/2024 4:06 AM) Result Value WORKSTATION ID [id number] Impression 1. Limited examination. 2. Interval removal [...] who have questions please contact the health healthcare consultant that requested your imaging first. Chest One View (Exam End: 09/28/2024 7:58 PM) Result Value WORKSTATION ID [id number] Impression 1. Slightly increased opacity in the [...] who have questions please contact the health healthcare consultant that requested your imaging first. Chest One View (Exam End: 09/29/2024 1:13 PM) Result Value WORKSTATION ID [id number] Impression 1. Limited examination. 2. Stable position [...] who have questions please contact the health healthcare consultant that requested your imaging first. Head wo Contrast (Generic) (Exam End: 10/04/2024 1:40 AM) Result Value WORKSTATION ID [id number] Impression 1. Overall interval improvement of the [...] who have questions please contact the health healthcare consultant that requested your imaging first. Brain wwo Contrast (Generic) (Exam End: 10/04/2024 10:30 PM) Result Value WORKSTATION ID [id number] Impression 1. Fluid collections in the right [...] who have questions please contact the health healthcare consultant that requested your imaging first. Chest One View (Exam End: 10/06/2024 10:59 AM) Result Value WORKSTATION ID [id number] Impression Improved but persistent retrocardiac patchy opacity [...] who have questions please contact the health healthcare consultant that requested your imaging first. Fluoro Esophagram (Modified/Video Swallow Pharynx) (Exam End: 10/08/2024 4:10 PM) Result Value WORKSTATION ID [id number] Impression Abnormal modified barium swallow with silent [...] who have questions please contact the health healthcare consultant that requested your imaging first. Electronically signed by: Victor Manuel Smith MD, [facility] ([phone]), at 10/08/2024 4:[address] Head wo Contrast (Generic) (Exam End: 10/07/2024 3:25 PM) Result Value WORKSTATION ID [id number] Impression 1. Interval decreased prominence of RIGHT [...] who have questions please contact the health healthcare consultant that requested your imaging first. SSMENT & [...] PRN #GI - >dysphagia - follow up WOOD FLOOR LAYER recs - Sips and Chips (Hold Meds) [...] Other - Activity: as tolerated - [facility]po[facility] - Last BM: Last Bowel Movement: [...] Please page Vascular Neurology with any questions, #[id number] ADRIANA JONAS [place] [address] Associated attestation - Karli Morales [...] Attending: Karli Morales MD Primary Provider: Leila Mnajarrez [phone] Hospital Day: Hospital Day: 24 Patient ID [...] Net -230 ml Labs Recent Labs 10/09/245810/08/24 01110/07/24 0112 10/06/24 0033 10/05/24 0008 WBC 12.45* 11.43* 15.48* 16.59* 13.56* HGB 10.4* 10.0* 10.7* 10.8* 10.8* HCT 32.1* 31.2* 32.4* 32.9* 33.5* PLATELET 207 190 211 237 241 NEUTROABS 9.95* 9.01* 13.16* 14.40* 11.69* Recent Labs 10/09/245810/08/243 10/07/24 0112 10/06/24 0033 10/05/24 0008 NA [...] 09/16/2024 5:26 PM) Result Value WORKSTATION ID [id number] Impression Interval expansion of now large right-sided [...] who have questions please contact the health healthcare consultant that requested your imaging first. Head wo Contrast (Generic) (Exam End: 09/16/2024 11:21 PM) Result Value WORKSTATION ID [id number] head: 1. Interval craniotomy with [...] who have questions please contact the health healthcare consultant that requested your imaging first. Venogram Brain (Exam End: 09/16/2024 11:21 PM) Result Value WORKSTATION ID [id number] Impression CT head: 1. Interval craniotomy with [...] who have questions please contact the health healthcare consultant that requested your imaging first. Chest One View (Exam End: 09/16/2024 11:00 PM) Result Value WORKSTATION ID [id number] Impression Satisfactorily positioned enteric and endotracheal tubes. Left lower lobe atelectasis versus pneumonia. Thank you for letting us participate in the care of this patient. If you are a health care provider and have any questions regarding this report, please contact the number below. For patients who have questions please contact the health healthcare consultant that requested your imaging first. Abdomen 1 view (Generic) (Exam End: 09/16/2024 11:00 PM) Result Value WORKSTATION ID [id number] Impression Satisfactorily positioned enteric and endotracheal tubes. Left lower lobe atelectasis versus pneumonia. Thank you for letting us participate in the care of this patient. If you are a health care provider and have any questions regarding this report, please contact the number below. For patients who have questions please contact the health healthcare consultant that requested your imaging first. Head wo Contrast (Generic) (Exam End: 09/17/2024 4:51 AM) Result Value WORKSTATION ID [id number] Impression Increased size and density of dominant [...] who have questions please contact the health healthcare consultant that requested your imaging first. Chest One View (Exam End: 09/17/2024 2:13 PM) Result Value WORKSTATION ID [id number] Impression 1. No focal opacity in lung [...] who have questions please contact the health healthcare consultant that requested your imaging first. Chest One View (Exam End: 09/18/2024 8:43 AM) Result Value WORKSTATION ID [id number] Impression Tubes and lines as described. Blunting of the left costophrenic angle suggests tiny layering left effusion with associated left basilar consolidation/atelectasis Thank you for letting us participate in the care of this patient. If you are a health care provider and have any questions regarding this report, please contact the number below. For patients who have questions please contact the health healthcare consultant that requested your imaging first. Abdomen 1 view (Generic) (Exam End: 09/18/2024 12:31 PM) Result Value WORKSTATION ID [id number] Impression Dobbhoff tube tip along the greater curve of the stomach. Thank you for letting us participate in the care of this patient. If you are a health care provider and have any questions regarding this report, please contact the number below. For patients who have questions please contact the health healthcare consultant that requested your imaging first. Brain wwo Contrast (Generic) (Exam End: 09/19/2024 5:43 PM) Result Value WORKSTATION ID [id number] Impression Unchanged size of large right cerebral hemisphere ICH status post partial evacuation. Numerous small foci of decreased acute infarction both along and separate from the site of hemorrhage. These foci are present in both cerebral hemispheres and have a pattern most consistent with embolic infarction. No evidence of REELER OPERATOR malignancy Thank you for letting us participate in the care of this patient. If you are a health care provider and have any questions regarding this report, please contact the number below. For patients who have questions please contact the health healthcare consultant that requested your imaging first. Head wo Contrast (Generic) (Exam End: 09/21/2024 3:50 AM) Result Value WORKSTATION ID [id number] Impression Stable hemorrhage right temporal, parietal, right [...] who have questions please contact the health healthcare consultant that requested your imaging first. Abdomen 1 view (Generic) (Exam End: 09/21/2024 2:01 PM) Result Value WORKSTATION ID [id number] Impression Dobbhoff tube and enteric tube sidehole [...] who have questions please contact the health healthcare consultant that requested your imaging first. Chest One View (Exam End: 09/21/2024 2:01 PM) Result Value WORKSTATION ID [id number] Impression ET tube with tip projecting approximately [...] who have questions please contact the health healthcare consultant that requested your imaging first. Head wo Contrast (Generic) (Exam End: 09/22/2024 4:02 AM) Result Value WORKSTATION ID [id number] Impression Stable head CT status post removal of subcutaneous drain. No new or enlarging hemorrhage. Stable pattern of mass effect Thank you for letting us participate in the care of this patient. If you are a health care provider and have any questions regarding this report, please contact the number below. For patients who have questions please contact the health healthcare consultant that requested your imaging first. Angiogram Chest for Pulmonary Embolus w Contrast (Exam End: 09/26/2024 1:37 PM) Result Value WORKSTATION ID [id number] Impression 1. No pulmonary embolism. 2. Pulmonary [...] who have questions please contact the health healthcare consultant that requested your imaging first. Head wo Contrast (Generic) (Exam End: 09/26/2024 1:37 PM) Result Value WORKSTATION ID [id number] Impression 1. Stable right-sided parenchymal and subdural [...] who have questions please contact the health healthcare consultant that requested your imaging first. Abdomen & Pelvis w Contrast (Exam End: 09/26/2024 1:37 PM) Result Value WORKSTATION ID [id number] Impression 1. No pulmonary embolism. 2. Pulmonary [...] who have questions please contact the health healthcare consultant that requested your imaging first. Chest One View (Exam End: 09/28/2024 4:06 AM) Result Value WORKSTATION ID [id number] Impression 1. Limited examination. 2. Interval removal [...] who have questions please contact the health healthcare consultant that requested your imaging first. Chest One View (Exam End: 09/28/2024 7:58 PM) Result Value WORKSTATION ID [id number] Impression 1. Slightly increased opacity in the [...] who have questions please contact the health healthcare consultant that requested your imaging first. Chest One View (Exam End: 09/29/2024 1:13 PM) Result Value WORKSTATION ID [id number] Impression 1. Limited examination. 2. Stable position [...] who have questions please contact the health healthcare consultant that requested your imaging first. Head wo Contrast (Generic) (Exam End: 10/04/2024 1:40 AM) Result Value WORKSTATION ID [id number] Impression 1. Overall interval improvement of the [...] who have questions please contact the health healthcare consultant that requested your imaging first. Brain wwo Contrast (Generic) (Exam End: 10/04/2024 10:30 PM) Result Value WORKSTATION ID [id number] Impression 1. Fluid collections in the right [...] who have questions please contact the health healthcare consultant that requested your imaging first. Chest One View (Exam End: 10/06/2024 10:59 AM) Result Value WORKSTATION ID [id number] Impression Improved but persistent retrocardiac patchy opacity [...] who have questions please contact the health healthcare consultant that requested your imaging first. Fluoro Esophagram (Modified/Video Swallow Pharynx) (Exam End: 10/08/2024 4:10 PM) Result Value WORKSTATION ID [id number] Impression Abnormal modified barium swallow with silent [...] who have questions please contact the health healthcare consultant that requested your imaging first. Electronically signed by: Victor Manuel Smith MD, [facility] ([phone]), at 10/08/2024 4:[address] Head wo Contrast (Generic) (Exam End: 10/07/2024 3:25 PM) Result Value WORKSTATION ID [id number] Impression 1. Interval decreased prominence of RIGHT [...] who have questions please contact the health healthcare consultant that requested your imaging first. SSMENT & [...] PRN #GI - >dysphagia - follow up WOOD FLOOR LAYER recs - Sips and Chips (Hold Meds) [...] Other - Activity: as tolerated - [facility]po: [facility] - Last BM: Last Bowel Movement: [...] Please page Vascular Neurology with any questions, #[id number] ADRIANA [place]ONAS [place] [address] Associated attestation - Karli Morales [...] rehab and SNF placement * Areli Hathaway, [employer] - 10/08/2024 3:18 PM EST Speech-Language Pathology Modified Barium Swallow Evaluation Patient Profile: Lucero Bruno is a 74 y.o. female with PMHx of A-fib, CHRISTOPHER, HLD, and prior IPH (04/2024) who presented to [facility] on 09/16/2024 for placement of Watchman with cardiology. She developed headaches and nausea post-operatively and was found to have a large R jrqyjeel-wytxlii-dnbcdozxr IPH, now s/p craniotomy. Patient was intubated from 09/16-09/21 with extubation complicated by stridor requiring re-intubation from 09/21-09/26 (11 days total). WOOD FLOOR [employer]ER has been following since 09/27 for communication [...] Secretion Management X Bolus Presentations: Thin liquid [place] thick liquid Puree Soft solid Oral Preparatory [...] for clearing oropharyngeal residue Penetration-Aspiration Scale (PAS; Jovita, Michelle et al., 1996) 1 = no [...] to assess oropharyngeal swallow function following R tzlhqyn-caqpwpb-jddmopqnu IPH (09/16). Oral motor examination revealed interval improvements in orofacial agility and coordination, though her movements remain sluggish and effortful. Her speech intelligibility has improved alongside improvements in orofacial control. Aubree required physical assistance and frequent repositioning to maintain upright posture throughout this study due to left-sided weakness and inattention. Imaging revealed ngge-vg-bwwidsyj oropharyngeal dysphagia. Aubree's oral phase was efficient and timely with liquids but prolonged and disorganized with reduced lingual propulsion of purees and soft solids requiring intermittent cues to clear the oral cavity. Aubree's pharyngeal swallow was characterized by varying timeliness, decreased epiglottic inversion likely related to decreased anterior hyolaryngeal excursion, and decreased pharyngeal constriction leading to wkog-kq-udlswlzj residue with purees and soft solids. Aubree [...] follow and trial more advanced consistencies. Diagnosis: Rrwu-iu-exochjay oropharyngeal dysphagia 2/2 IPH, dysphonia 2/2 IPH [...] instrumental swallow evaluation. MET Plan: Therapy Frequency (WOOD FLOOR LAYER Eval): 3-5 times/wk Patient is in agreement with the plan of care. Total Minutes (Speech Language Pathology): 20 (clinical) + 60 (MBS) = 80 Thanks for the opportunity to contribute to this patient's care. Please feel free to page me with any questions or concerns. Areli Hathaway MS, [facility] Speech-Language Pathologist Inpatient Rehabilitation Pager # [phone] * Anupama Pastrana RN - 10/08/2024 12:36 PM ESTSummary: [facility] SNF choice/expanded Based on discussions with the multi-disciplinary healthcare team, the patient would benefit from SNF level of care at discharge. I have met with the patient and financial services representative son Don Pollard to: discuss discharge planning needs. provide the [facility], Office of Care Management letter from the Executive Relations Specialist pertaining to rehab referrals. provide a letter describing our affiliations within the [facility] and educate about their right to choose where referrals are sent. provide the CMS Star Quality Rating handout. review the different levels of rehab including SNF, swing, and acute. provide a list of facilities within their preferred geographic area. request that they provide at least three choices for referral. They have requested referrals to: [facility] (LTC Only) [address] [place] [address] [facility] [address] [place] [address] [address] [facility] [address] [place] [id number] Note routed to a Casting Supervisor who will communicate referrals to facilities and provide any required information. KIKO Nguyen, RN ACM-RN [facility] medical corps officer * Anitra Ruiz DO - 10/08/2024 7:26 AM EST Images from the original note were not included. VASCULAR NEUROLOGY DAILY PROGRESS NOTE Admit Date 09/16/2024 Responsible Attending: Karli Morales MD Primary Provider: Leila Manjarrez [phone] Hospital Day: Hospital Day: 23 Patient ID [...] tube feed regimen to boluses yesterday - MICHAELLEEEMMANUEL, VSS - This morning denies any acute [...] 186 190 211* 136 166 Recent Labs 10/08/2411210/07/2411110/06/24 003 CALCIUM 8.9 9.0 9.0 MAGNESIUM 0.79 0.72 [...] Procedure Component Value - Date/Time Blood culture [[id number]] Collected: 09/26/24 1442 Lab Status: Final result Specimen: Blood, Venous Updated: 10/01/24 1602 Blood Culture No growth at 120 hours Blood culture [[id number]] Collected: 09/26/24 1453 Lab Status: Final result Specimen: Blood, Venous Updated: 10/01/24 160 Blood Culture No growth at 120 hours Imaging/EKG Results for orders placed or performed during the hospital encounter of 09/16/24 CT Head wo Contrast (Generic) (Exam End: 09/16/2024 5:26 PM) Result Value WORKSTATION ID [id number] Impression Interval expansion of now large right-sided [...] who have questions please contact the health healthcare consultant that requested your imaging first. Head wo Contrast (Generic) (Exam End: 09/16/2024 11:21 PM) Result Value WORKSTATION ID [id number] Impression CT head: 1. Interval craniotomy with [...] who have questions please contact the health healthcare consultant that requested your imaging first. Venogram Brain (Exam End: 09/16/2024 11:21 PM) Result Value WORKSTATION ID [id number] Impression CT head: 1. Interval craniotomy with [...] who have questions please contact the health healthcare consultant that requested your imaging first. Chest One View (Exam End: 09/16/2024 11:00 PM) Result Value WORKSTATION ID [id number] Impression Satisfactorily positioned enteric and endotracheal tubes. Left lower lobe atelectasis versus pneumonia. Thank you for letting us participate in the care of this patient. If you are a health care provider and have any questions regarding this report, please contact the number below. For patients who have questions please contact the health healthcare consultant that requested your imaging first. Abdomen 1 view (Generic) (Exam End: 09/16/2024 11:00 PM) Result Value WORKSTATION ID [id number] Impression Satisfactorily positioned enteric and endotracheal tubes. Left lower lobe atelectasis versus pneumonia. Thank you for letting us participate in the care of this patient. If you are a health care provider and have any questions regarding this report, please contact the number below. For patients who have questions please contact the health healthcare consultant that requested your imaging first. Head wo Contrast (Generic) (Exam End: 09/17/2024 4:51 AM) Result Value WORKSTATION ID [id number] Impression Increased size and density of dominant [...] who have questions please contact the health healthcare consultant that requested your imaging first. Chest One View (Exam End: 09/17/2024 2:13 PM) Result Value WORKSTATION ID [id number] Impression 1. No focal opacity in lung [...] who have questions please contact the health healthcare consultant that requested your imaging first. Chest One View (Exam End: 09/18/2024 8:43 AM) Result Value WORKSTATION ID [id number] Impression Tubes and lines as described. Blunting of the left costophrenic angle suggests tiny layering left effusion with associated left basilar consolidation/atelectasis Thank you for letting us participate in the care of this patient. If you are a health care provider and have any questions regarding this report, please contact the number below. For patients who have questions please contact the health healthcare consultant that requested your imaging first. Abdomen 1 view (Generic) (Exam End: 09/18/2024 12:31 PM) Result Value WORKSTATION ID [id number] Impression Dobbhoff tube tip along the greater curve of the stomach. Thank you for letting us participate in the care of this patient. If you are a health care provider and have any questions regarding this report, please contact the number below. For patients who have questions please contact the health healthcare consultant that requested your imaging first. Brain wwo Contrast (Generic) (Exam End: 09/19/2024 5:43 PM) Result Value WORKSTATION ID [id number] Impression Unchanged size of large right cerebral hemisphere ICH status post partial evacuation. Numerous small foci of decreased acute infarction both along and separate from the site of hemorrhage. These foci are present in both cerebral hemispheres and have a pattern most consistent with embolic infarction. No evidence of REELER OPERATOR malignancy Thank you for letting us participate in the care of this patient. If you are a health care provider and have any questions regarding this report, please contact the number below. For patients who have questions please contact the health healthcare consultant that requested your imaging first. Head wo Contrast (Generic) (Exam End: 09/21/2024 3:50 AM) Result Value WORKSTATION ID [id number] Impression Stable hemorrhage right temporal, parietal, right [...] who have questions please contact the health healthcare consultant that requested your imaging first. Abdomen 1 view (Generic) (Exam End: 09/21/2024 2:01 PM) Result Value WORKSTATION ID [id number] Impression Dobbhoff tube and enteric tube sidehole [...] who have questions please contact the health healthcare consultant that requested your imaging first. Chest One View (Exam End: 09/21/2024 2:01 PM) Result Value WORKSTATION ID [id number] Impression ET tube with tip projecting approximately [...] who have questions please contact the health healthcare consultant that requested your imaging first. Head wo Contrast (Generic) (Exam End: 09/22/2024 4:02 AM) Result Value WORKSTATION ID [id number] Impression Stable head CT status post removal of subcutaneous drain. No new or enlarging hemorrhage. Stable pattern of mass effect Thank you for letting us participate in the care of this patient. If you are a health care provider and have any questions regarding this report, please contact the number below. For patients who have questions please contact the health healthcare consultant that requested your imaging first. Angiogram Chest for Pulmonary Embolus w Contrast (Exam End: 09/26/2024 1:37 PM) Result Value WORKSTATION ID [id number] Impression 1. No pulmonary embolism. 2. Pulmonary [...] who have questions please contact the health healthcare consultant that requested your imaging first. Head wo Contrast (Generic) (Exam End: 09/26/2024 1:37 PM) Result Value WORKSTATION ID [id number] Impression 1. Stable right-sided parenchymal and subdural [...] who have questions please contact the health healthcare consultant that requested your imaging first. Abdomen & Pelvis w Contrast (Exam End: 09/26/2024 1:37 PM) Result Value WORKSTATION ID [id number] Impression 1. No pulmonary embolism. 2. Pulmonary [...] who have questions please contact the health healthcare consultant that requested your imaging first. Chest One View (Exam End: 09/28/2024 4:06 AM) Result Value WORKSTATION ID [id number] Impression 1. Limited examination. 2. Interval removal [...] who have questions please contact the health healthcare consultant that requested your imaging first. Chest One View (Exam End: 09/28/2024 7:58 PM) Result Value WORKSTATION ID [id number] Impression 1. Slightly increased opacity in the [...] who have questions please contact the health healthcare consultant that requested your imaging first. Chest One View (Exam End: 09/29/2024 1:13 PM) Result Value WORKSTATION ID [id number] Impression 1. Limited examination. 2. Stable position [...] who have questions please contact the health healthcare consultant that requested your imaging first. Head wo Contrast (Generic) (Exam End: 10/04/2024 1:40 AM) Result Value WORKSTATION ID [id number] Impression 1. Overall interval improvement of the [...] who have questions please contact the health healthcare consultant that requested your imaging first. Brain wwo Contrast (Generic) (Exam End: 10/04/2024 10:30 PM) Result Value WORKSTATION ID [id number] Impression 1. Fluid collections in the right [...] who have questions please contact the health healthcare consultant that requested your imaging first. Chest One View (Exam End: 10/06/2024 10:59 AM) Result Value WORKSTATION ID [id number] Impression Improved but persistent retrocardiac patchy opacity [...] who have questions please contact the health healthcare consultant that requested your imaging first. Head wo Contrast (Generic) (Exam End: 10/07/2024 3:25 PM) Result Value WORKSTATION ID [id number] Impression 1. Interval decreased prominence of RIGHT [...] who have questions please contact the health healthcare consultant that requested your imaging first. SSMENT & [...] PRN #GI - >dysphagia - follow up WOOD FLOOR LAYER recs - NPO diet (Give Meds) - [...] Other - Activity: as tolerated - [facility] - Last BM: Last Bowel Movement: [...] Please page Vascular Neurology with any questions, #[phone] Anitra Ruiz DO Department of Neurology [place] [phone] Associated attestation - Karli Morales MD - [...] Dheeraj Moreira - 10/07/2024 3:56 PM EST Hvac Installation Technician Encounter Note Patient Name: Lucero Bruno : [id number] MR#: [id number] Admit Date: 09/16/2024 10:06 AM Hospital Day 21 days Narrative:Follow-up visit for continued assessment and support. Assessment:Family coping positively with stresses of illness/hospitalization at this time. I met with patient boy friend and he was happy that she is getting better day and he was happy about all progress. Intervention and Outcome:Provided emotional, spiritual support and listening presence. Hvac Installation Technician services accepted. Conversation to build trusting relationship. Provided pastoral presence. Provided spiritual guidance. Follow-up: yes Time in Direct Care:04 Mins Dheeraj Moreira 10/07/2024 * Areli Hathaway SLP - 10/07/2024 1:29 PM EST Speech Therapy Note Patient Profile: Lucero Bruno is a 74 y.o. female with PMHx of A-fib, CHRISTOPHER, HLD, and prior IPH (04/2024) who presented [place] [facility] [place] 09/16/2024 for placement of Watchman with cardiology. She developed headaches and nausea post-operatively and was found to have a large R lvggknsw-nbshfqb-khtupjprn IPH, now s/p craniotomy. Patient was intubated from 09/16-09/21 with extubation complicated by stridor requiring re-intubation from 09/21-09/26 (11 days total). WOOD FLOOR LAYER has been following since 09/27 for communication [...] X Bolus Presentation(s): Tested Comments Thin liquids [place] thick liquids Honey thick liquids Pureed solids Dysphagia soft Mechanical soft Regular solids Pills Other X [place]atch ice Oral Preparatory Phase Mastication: N/A Oral [...] of motion and coordination, and phonatory abilities. Aubere's voice was gravelly and strained and her [...] stimulation. Please provide single ice chips between WOOD FLOOR LAYER sessions when she is alert and accepting. [...] instrumental swallow evaluation. NEW Plan: Therapy Frequency (WOOD FLOOR LAYER Eval): 3-5 times/wk Patient is in agreement with the plan of care. Total Minutes (Speech Language Pathology): 40 Areli Hathaway MS, [facility]-WOOD FLOOR LAYER Speech-Language Pathologist Inpatient Rehabilitation Pager # [phone] * Enedina Solomon, ASHLEY - 10/07/2024 10:34 AM EST Nutrition Progress [...] Follow-up, Tube Feeding Nutrition Recommendations: NPO per WOOD FLOOR LAYER 10/06. Gtube placed 10/04. Suggest transition to [...] of this encounter: 79.4 kg (175 lb). [place] Body Weight (IBW) (kg): 45.45 Wt Readings [...] feeds. Order pended and team paged. 10/06: WOOD FLOOR LAYER continues to recommend NPO, per note 10/05. [...] VHP rather than Nutren 1.5, team aware. WOOD FLOOR LAYER continues to recommend NPO per 09/30 note. LBM 09/29, optimize regimen. Per EMR, pt with 4% wt loss in <1 week (196lbs on 09/24 to 188lbs on 09/28) which is clinically significant. Unable to complete full NFPE at this time. Planned for upcoming PEG placement. 09/29: TF Dc'd 09/28 @ 1835hr. WOOD FLOOR LAYER continues to recommend NPO, need for alternate [...] maxillary line): Not assessed Lean Muscle Loss Jain region (temporalis muscle): None present Clavicle bone [...] Karli Morales MD Primary Provider: Leila Manjarrez [phone] Hospital Day: Hospital Day: 22 Patient ID [...] NG/GT:1520] Out: 2215 [Urine:2215] Labs Recent Labs 10/07/2411110/06/243 10/05/24 0008 10/04/24 0029 10/03/24 0405 WBC 15.48* 16.59* 13.56* 14.67* 15.33* HGB 10.7* 10.8* 10.8* 10.4* 10.5* HCT 32.4* 32.9* 33.5* 32.8* 32.4* PLATELET 211 237 241 303 359* NEUTROABS 13.16* 14.40* 11.69* 12.52* 13.43* Recent Labs 10/07/2411110/06/24 0033 10/05/24 0008 10/04/24 [...] Procedure Component Value - Date/Time Blood culture [[id number]] Collected: 09/26/24 1442 Lab Status: Final result Specimen: Blood, Venous Updated: 10/01/24 1602 Blood Culture No growth at 120 hours Blood culture [[id number]] Collected: 09/26/24 1453 Lab Status: Final result Specimen: Blood, Venous Updated: 10/01/24 1602 Blood Culture No growth at 120 hours Imaging/EKG Results for orders placed or performed during the hospital encounter of 09/16/24 CT Head wo Contrast (Generic) (Exam End: 09/16/2024 5:26 PM) Result Value WORKSTATION ID [id number] Impression Interval expansion of now large right-sided [...] who have questions please contact the health healthcare consultant that requested your imaging first. Head wo Contrast (Generic) (Exam End: 09/16/2024 11:21 PM) Result Value WORKSTATION ID [id number] Impression CT head: 1. Interval craniotomy with [...] who have questions please contact the health healthcare consultant that requested your imaging first. Venogram Brain (Exam End: 09/16/2024 11:21 PM) Result Value WORKSTATION ID [id number] Impression CT head: 1. Interval craniotomy with [...] who have questions please contact the health healthcare consultant that requested your imaging first. Chest One View (Exam End: 09/16/2024 11:00 PM) Result Value WORKSTATION ID [id number] Impression Satisfactorily positioned enteric and endotracheal tubes. Left lower lobe atelectasis versus pneumonia. Thank you for letting us participate in the care of this patient. If you are a health care provider and have any questions regarding this report, please contact the number below. For patients who have questions please contact the health healthcare consultant that requested your imaging first. Abdomen 1 view (Generic) (Exam End: 09/16/2024 11:00 PM) Result Value WORKSTATION ID [id number] Impression Satisfactorily positioned enteric and endotracheal tubes. Left lower lobe atelectasis versus pneumonia. Thank you for letting us participate in the care of this patient. If you are a health care provider and have any questions regarding this report, please contact the number below. For patients who have questions please contact the health healthcare consultant that requested your imaging first. Head wo Contrast (Generic) (Exam End: 09/17/2024 4:51 AM) Result Value WORKSTATION ID [id number] Impression Increased size and density of dominant [...] who have questions please contact the health healthcare consultant that requested your imaging first. Chest One View (Exam End: 09/17/2024 2:13 PM) Result Value WORKSTATION ID [id number] Impression 1. No focal opacity in lung [...] who have questions please contact the health healthcare consultant that requested your imaging first. Chest One View (Exam End: 09/18/2024 8:43 AM) Result Value WORKSTATION ID [id number] Impression Tubes and lines as described. Blunting of the left costophrenic angle suggests tiny layering left effusion with associated left basilar consolidation/atelectasis Thank you for letting us participate in the care of this patient. If you are a health care provider and have any questions regarding this report, please contact the number below. For patients who have questions please contact the health healthcare consultant that requested your imaging first. Abdomen 1 view (Generic) (Exam End: 09/18/2024 12:31 PM) Result Value WORKSTATION ID [id number] Impression Dobbhoff tube tip along the greater curve of the stomach. Thank you for letting us participate in the care of this patient. If you are a health care provider and have any questions regarding this report, please contact the number below. For patients who have questions please contact the health healthcare consultant that requested your imaging first. Brain wwo Contrast (Generic) (Exam End: 09/19/2024 5:43 PM) Result Value WORKSTATION ID [id number] Impression Unchanged size of large right cerebral hemisphere ICH status post partial evacuation. Numerous small foci of decreased acute infarction both along and separate from the site of hemorrhage. These foci are present in both cerebral hemispheres and have a pattern most consistent with embolic infarction. No evidence of REELER OPERATOR malignancy Thank you for letting us participate in the care of this patient. If you are a health care provider and have any questions regarding this report, please contact the number below. For patients who have questions please contact the health healthcare consultant that requested your imaging first. Head wo Contrast (Generic) (Exam End: 09/21/2024 3:50 AM) Result Value WORKSTATION ID [id number] Impression Stable hemorrhage right temporal, parietal, right [...] who have questions please contact the health healthcare consultant that requested your imaging first. Abdomen 1 view (Generic) (Exam End: 09/21/2024 2:01 PM) Result Value WORKSTATION ID [id number] Impression Dobbhoff tube and enteric tube sidehole [...] who have questions please contact the health healthcare consultant that requested your imaging first. Chest One View (Exam End: 09/21/2024 2:01 PM) Result Value WORKSTATION ID [id number] Impression ET tube with tip projecting approximately [...] who have questions please contact the health healthcare consultant that requested your imaging first. Head wo Contrast (Generic) (Exam End: 09/22/2024 4:02 AM) Result Value WORKSTATION ID [id number] Impression Stable head CT status post removal of subcutaneous drain. No new or enlarging hemorrhage. Stable pattern of mass effect Thank you for letting us participate in the care of this patient. If you are a health care provider and have any questions regarding this report, please contact the number below. For patients who have questions please contact the health healthcare consultant that requested your imaging first. Angiogram Chest for Pulmonary Embolus w Contrast (Exam End: 09/26/2024 1:37 PM) Result Value WORKSTATION ID [id number] Impression 1. No pulmonary embolism. 2. Pulmonary [...] who have questions please contact the health healthcare consultant that requested your imaging first. Head wo Contrast (Generic) (Exam End: 09/26/2024 1:37 PM) Result Value WORKSTATION ID [id number] Impression 1. Stable right-sided parenchymal and subdural [...] who have questions please contact the health healthcare consultant that requested your imaging first. Abdomen & Pelvis w Contrast (Exam End: 09/26/2024 1:37 PM) Result Value WORKSTATION ID [id number] Impression 1. No pulmonary embolism. 2. Pulmonary [...] who have questions please contact the health healthcare consultant that requested your imaging first. Chest One View (Exam End: 09/28/2024 4:06 AM) Result Value WORKSTATION ID [id number] Impression 1. Limited examination. 2. Interval removal [...] who have questions please contact the health healthcare consultant that requested your imaging first. Chest One View (Exam End: 09/28/2024 7:58 PM) Result Value WORKSTATION ID [id number] Impression 1. Slightly increased opacity in the [...] who have questions please contact the health healthcare consultant that requested your imaging first. Chest One View (Exam End: 09/29/2024 1:13 PM) Result Value WORKSTATION ID [id number] Impression 1. Limited examination. 2. Stable position [...] who have questions please contact the health healthcare consultant that requested your imaging first. Head wo Contrast (Generic) (Exam End: 10/04/2024 1:40 AM) Result Value WORKSTATION ID [id number] Impression 1. Overall interval improvement of the [...] who have questions please contact the health healthcare consultant that requested your imaging first. Brain wwo Contrast (Generic) (Exam End: 10/04/2024 10:30 PM) Result Value WORKSTATION ID [id number] Impression 1. Fluid collections in the right [...] who have questions please contact the health healthcare consultant that requested your imaging first. Chest One View (Exam End: 10/06/2024 10:59 AM) Result Value WORKSTATION ID [id number] Impression Improved but persistent retrocardiac patchy opacity [...] who have questions please contact the health healthcare consultant that requested your imaging first. SSMENT & [...] PRN #GI - >dysphagia - follow up WOOD FLOOR LAYER recs - NPO diet (Give Meds) - [...] Other - Activity: as tolerated - [facility]po[facility] - Last BM: Last Bowel Movement: [...] Please page Vascular Neurology with any questions, #[phone] Anitra Ruiz DO Department of Neurology [place] [phone] Associated attestation - Karli Morales MD - [...] Guzman MD - 10/06/2024 5:27 PM EST [facility] NEUROSURGERY PROGRESS NOTE ID: [...] 09/16/2024 5:26 PM) Result Value WORKSTATION ID [id number] Impression Interval expansion of now large right-sided [...] who have questions please contact the health healthcare consultant that requested your imaging first. Head wo Contrast (Generic) (Exam End: 09/16/2024 11:21 PM) Result Value WORKSTATION ID [id number] Impression CT head: 1. Interval craniotomy with [...] who have questions please contact the health healthcare consultant that requested your imaging first. Venogram Brain (Exam End: 09/16/2024 11:21 PM) Result Value WORKSTATION ID [id number] Impression CT head: 1. Interval craniotomy with [...] who have questions please contact the health healthcare consultant that requested your imaging first. Chest One View (Exam End: 09/16/2024 11:00 PM) Result Value WORKSTATION ID [id number] Impression Satisfactorily positioned enteric and endotracheal tubes. Left lower lobe atelectasis versus pneumonia. Thank you for letting us participate in the care of this patient. If you are a health care provider and have any questions regarding this report, please contact the number below. For patients who have questions please contact the health healthcare consultant that requested your imaging first. Abdomen 1 view (Generic) (Exam End: 09/16/2024 11:00 PM) Result Value WORKSTATION ID [id number] Impression Satisfactorily positioned enteric and endotracheal tubes. Left lower lobe atelectasis versus pneumonia. Thank you for letting us participate in the care of this patient. If you are a health care provider and have any questions regarding this report, please contact the number below. For patients who have questions please contact the health healthcare consultant that requested your imaging first. Head wo Contrast (Generic) (Exam End: 09/17/2024 4:51 AM) Result Value WORKSTATION ID [id number] Impression Increased size and density of dominant [...] who have questions please contact the health healthcare consultant that requested your imaging first. Chest One View (Exam End: 09/17/2024 2:13 PM) Result Value WORKSTATION ID [id number] Impression 1. No focal opacity in lung [...] who have questions please contact the health healthcare consultant that requested your imaging first. Chest One View (Exam End: 09/18/2024 8:43 AM) Result Value WORKSTATION ID [id number] Impression Tubes and lines as described. Blunting of the left costophrenic angle suggests tiny layering left effusion with associated left basilar consolidation/atelectasis Thank you for letting us participate in the care of this patient. If you are a health care provider and have any questions regarding this report, please contact the number below. For patients who have questions please contact the health healthcare consultant that requested your imaging first. Abdomen 1 view (Generic) (Exam End: 09/18/2024 12:31 PM) Result Value WORKSTATION ID [id number] Impression Dobbhoff tube tip along the greater curve of the stomach. Thank you for letting us participate in the care of this patient. If you are a health care provider and have any questions regarding this report, please contact the number below. For patients who have questions please contact the health healthcare consultant that requested your imaging first. Brain wwo Contrast (Generic) (Exam End: 09/19/2024 5:43 PM) Result Value WORKSTATION ID [id number] Impression Unchanged size of large right cerebral hemisphere ICH status post partial evacuation. Numerous small foci of decreased acute infarction both along and separate from the site of hemorrhage. These foci are present in both cerebral hemispheres and have a pattern most consistent with embolic infarction. No evidence of REELER OPERATOR malignancy Thank you for letting us participate in the care of this patient. If you are a health care provider and have any questions regarding this report, please contact the number below. For patients who have questions please contact the health healthcare consultant that requested your imaging first. Head wo Contrast (Generic) (Exam End: 09/21/2024 3:50 AM) Result Value WORKSTATION ID [id number] Impression Stable hemorrhage right temporal, parietal, right [...] who have questions please contact the health healthcare consultant that requested your imaging first. Abdomen 1 view (Generic) (Exam End: 09/21/2024 2:01 PM) Result Value WORKSTATION ID [id number] Impression Dobbhoff tube and enteric tube sidehole [...] who have questions please contact the health healthcare consultant that requested your imaging first. Chest One View (Exam End: 09/21/2024 2:01 PM) Result Value WORKSTATION ID [id number] Impression ET tube with tip projecting approximately 1.4 cm above the jonathan. Recommend retracting approximately 2 cm and follow-up imaging. New left basilar atelectasis and/or small pleural effusion. Aspiration or pneumonia could also this appearance. I Scaha Shipley MD discussed the results (Impression #1) [...] who have questions please contact the health healthcare consultant that requested your imaging first. Head wo Contrast (Generic) (Exam End: 09/22/2024 4:02 AM) Result Value WORKSTATION ID [id number] Impression Stable head CT status post removal of subcutaneous drain. No new or enlarging hemorrhage. Stable pattern of mass effect Thank you for letting us participate in the care of this patient. If you are a health care provider and have any questions regarding this report, please contact the number below. For patients who have questions please contact the health healthcare consultant that requested your imaging first. Angiogram Chest for Pulmonary Embolus w Contrast (Exam End: 09/26/2024 1:37 PM) Result Value WORKSTATION ID [id number] Impression 1. No pulmonary embolism. 2. Pulmonary [...] who have questions please contact the health healthcare consultant that requested your imaging first. Head wo Contrast (Generic) (Exam End: 09/26/2024 1:37 PM) Result Value WORKSTATION ID [id number] Impression 1. Stable right-sided parenchymal and subdural [...] who have questions please contact the health healthcare consultant that requested your imaging first. Abdomen & Pelvis w Contrast (Exam End: 09/26/2024 1:37 PM) Result Value WORKSTATION ID [id number] Impression 1. No pulmonary embolism. 2. Pulmonary [...] who have questions please contact the health healthcare consultant that requested your imaging first. Chest One View (Exam End: 09/28/2024 4:06 AM) Result Value WORKSTATION ID [id number] Impression 1. Limited examination. 2. Interval removal [...] who have questions please contact the health healthcare consultant that requested your imaging first. Chest One View (Exam End: 09/28/2024 7:58 PM) Result Value WORKSTATION ID [id number] Impression 1. Slightly increased opacity in the [...] who have questions please contact the health healthcare consultant that requested your imaging first. Chest One View (Exam End: 09/29/2024 1:13 PM) Result Value WORKSTATION ID [id number] Impression 1. Limited examination. 2. Stable position [...] who have questions please contact the health healthcare consultant that requested your imaging first. Head wo Contrast (Generic) (Exam End: 10/04/2024 1:40 AM) Result Value WORKSTATION ID [id number] Impression 1. Overall interval improvement of the [...] who have questions please contact the health healthcare consultant that requested your imaging first. Brain wwo Contrast (Generic) (Exam End: 10/04/2024 10:30 PM) Result Value WORKSTATION ID [id number] Impression 1. Fluid collections in the right [...] who have questions please contact the health healthcare consultant that requested your imaging first. Chest One View (Exam End: 10/06/2024 10:59 AM) Result Value WORKSTATION ID [id number] Impression Improved but persistent retrocardiac patchy opacity [...] who have questions please contact the health healthcare consultant that requested your imaging first. Assessment: 74 y.o. female with PMHx notable for Afib (taking ASA, previously on apixaban-stopped taking after IPH in April 2024), CHRISTOPHER, HLD, BMI of 36, prior IPH 04/2024 who presented to hospital 09/16/24 for placement of Watchman with cardiology. She developed headaches and nausea post op and CT scan noted large R tyxiypki-tkddprq-avrvxtzjx IPH. Now s/p R craniotomy for IPH [...] clinic with JESSI For questions please call [facility] pager [phone] Rob Guzman MD Clinical Documentation Improvement: Active [...] 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 [place] watchman procedure subsequently developing a large [...] in all aspects. 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 Patient reports she enjoys her 1/2 acre of flower beds. Falls: None Precautions/Special Considerations: at risk to fall, SBP 90-160, MAP>65 Lines: PIV, tele, hill catheter, PEG Activity Orders: AAT Diet: NPO Mobility and Positioning Recommendations: [facility]. [...] the current findings, Anticipated Discharge Disposition (PT[facility] medically ready for hospital discharge. [...] plan as stated. Time IN / OUT: 0910-0083 Total Minutes, Physical Therapy: 22 Billing Code: TEF1 Kymberly Baptiste PT, DPT, NCS Pager: [phone] Physical Therapy Inpatient Rehabilitation Department * Diana Lucas, OT - 10/06/2024 1:28 PM EST Occupational Therapy Treatment Note Treatment Number OT: 5 Patient Dx:Lucero Bruno is a 74 y.o. female admitted on 09/16/2024. 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 today for watchman procedure subsequently developing a [...] and therapy goals Anticipated Discharge Disposition (OT): [facility] Equipment Recommendations: Equipment Needs Upon Discharge [...] They/Them Occupational Therapy Rehabilitation Department Pager # [phone] * Areli Hathaway, WOOD FLOOR LAYER - 10/06/2024 9:21 AM EST Speech Therapy Note Patient Profile: Lucero Bruno is a 74 y.o. female with PMHx of A-fib, CHRISTOPHER, HLD, and prior IPH (04/2024) who presented to [facility] on 09/16/2024 for placement of Watchman with cardiology. She developed headaches and nausea post-operatively and was found to have a large R obtdblop-fpyrosf-ewdhzcuaj IPH, now s/p craniotomy. Patient was intubated from 09/16-09/21 with extubation complicated by stridor requiring re-intubation from 09/21-09/26 (11 days total). WOOD FLOOR LAYER has been following since 09/27 for communication [...] X Bolus Presentation(s): Tested Comments Thin liquids [place] thick liquids Honey thick liquids Pureed solids [...] stimulation. Please provide single ice chips between WOOD FLOOR LAYER sessions when she is alert and accepting. [...] safe swallowing strategies. ONGOING Plan: Therapy Frequency (WOOD FLOOR LAYER Eval): 3-5 times/wk Patient is in agreement with the plan of care. Total Minutes (Speech Language Pathology): 35 Areli Hathaway MS, CCC-WOOD FLOOR LAYER Speech-Language Pathologist Inpatient Rehabilitation Pager # [phone] * Sol Hazel RD - 10/06/2024 7:27 [...] Follow-up, Tube Feeding Nutrition Recommendations: NPO per WOOD FLOOR LAYER 10/05 Continue TF and limit holds as [...] steps: feeds not at goal, need for fpc nutrition planif unable to advance diet Current [...] tube with balloon midline 10/04/246 -- 2 PIV 10/05/242028 22 gauge;1 in [...] of this encounter: 79.4 kg (175 lb). [place] Body Weight (IBW) (kg): 45.45 Wt Readings [...] intake and intake history / interview: 10/06: WOOD FLOOR LAYER continues to recommend NPO, per note 10/05. [...] VHP rather than Nutren 1.5, team aware. WOOD FLOOR LAYER continues to recommend NPO per 09/30 note. LBM 09/29, optimize regimen. Per EMR, pt with 4% wt loss in <1 week (196lbs on 09/24 to 188lbs on 09/28) which is clinically significant. Unable to complete full NFPE at this time. Planned for upcoming PEG placement. 09/29: TF Dc'd 09/28 @ 1835hr. WOOD FLOOR LAYER continues to recommend NPO, need for alternate [...] maxillary line): Not assessed Lean Muscle Loss Jain region (temporalis muscle): None present Clavicle bone [...] Gissell Velazco MD Primary Provider: Leila Manjarrez [phone] Hospital Day: Hospital Day: 21 Patient ID [...] changes in medical management yesterday - CHAVEZ CARRSACO - This morning denies any acute concerns [...] Procedure Component Value - Date/Time Blood culture [[id number]] Collected: 09/26/24 1442 Lab Status: Final result Specimen: Blood, Venous Updated: 10/01/24 1602 Blood Culture No growth at 120 hours Blood culture [[id number]] Collected: 09/26/24 1453 Lab Status: Final result Specimen: Blood, Venous Updated: 10/01/24 1602 Blood Culture No growth at 120 hours Imaging/EKG Results for orders placed or performed during the hospital encounter of 09/16/24 CT Head wo Contrast (Generic) (Exam End: 09/16/2024 5:26 PM) Result Value WORKSTATION ID [id number] Impression Interval expansion of now large right-sided [...] who have questions please contact the health healthcare consultant that requested your imaging first. Head wo Contrast (Generic) (Exam End: 09/16/2024 11:21 PM) Result Value WORKSTATION ID [id number] Impression CT head: 1. Interval craniotomy with [...] who have questions please contact the health healthcare consultant that requested your imaging first. Venogram Brain (Exam End: 09/16/2024 11:21 PM) Result Value WORKSTATION ID [id number] Impression CT head: 1. Interval craniotomy with [...] who have questions please contact the health healthcare consultant that requested your imaging first. Chest One View (Exam End: 09/16/2024 11:00 PM) Result Value WORKSTATION ID [id number] Impression Satisfactorily positioned enteric and endotracheal tubes. Left lower lobe atelectasis versus pneumonia. Thank you for letting us participate in the care of this patient. If you are a health care provider and have any questions regarding this report, please contact the number below. For patients who have questions please contact the health healthcare consultant that requested your imaging first. Abdomen 1 view (Generic) (Exam End: 09/16/2024 11:00 PM) Result Value WORKSTATION ID [id number] Impression Satisfactorily positioned enteric and endotracheal tubes. Left lower lobe atelectasis versus pneumonia. Thank you for letting us participate in the care of this patient. If you are a health care provider and have any questions regarding this report, please contact the number below. For patients who have questions please contact the health healthcare consultant that requested your imaging first. Head wo Contrast (Generic) (Exam End: 09/17/2024 4:51 AM) Result Value WORKSTATION ID [id number] Impression Increased size and density of dominant [...] who have questions please contact the health healthcare consultant that requested your imaging first. Chest One View (Exam End: 09/17/2024 2:13 PM) Result Value WORKSTATION ID [id number] Impression 1. No focal opacity in lung [...] who have questions please contact the health healthcare consultant that requested your imaging first. Chest One View (Exam End: 09/18/2024 8:43 AM) Result Value WORKSTATION ID [id number] Impression Tubes and lines as described. Blunting of the left costophrenic angle suggests tiny layering left effusion with associated left basilar consolidation/atelectasis Thank you for letting us participate in the care of this patient. If you are a health care provider and have any questions regarding this report, please contact the number below. For patients who have questions please contact the health healthcare consultant that requested your imaging first. Abdomen 1 view (Generic) (Exam End: 09/18/2024 12:31 PM) Result Value WORKSTATION ID [id number] Impression Dobbhoff tube tip along the greater curve of the stomach. Thank you for letting us participate in the care of this patient. If you are a health care provider and have any questions regarding this report, please contact the number below. For patients who have questions please contact the health healthcare consultant that requested your imaging first. Brain wwo Contrast (Generic) (Exam End: 09/19/2024 5:43 PM) Result Value WORKSTATION ID [id number] Impression Unchanged size of large right cerebral hemisphere ICH status post partial evacuation. Numerous small foci of decreased acute infarction both along and separate from the site of hemorrhage. These foci are present in both cerebral hemispheres and have a pattern most consistent with embolic infarction. No evidence of REELER OPERATOR malignancy Thank you for letting us participate in the care of this patient. If you are a health care provider and have any questions regarding this report, please contact the number below. For patients who have questions please contact the health healthcare consultant that requested your imaging first. Head wo Contrast (Generic) (Exam End: 09/21/2024 3:50 AM) Result Value WORKSTATION ID [id number] Impression Stable hemorrhage right temporal, parietal, right [...] who have questions please contact the health healthcare consultant that requested your imaging first. Abdomen 1 view (Generic) (Exam End: 09/21/2024 2:01 PM) Result Value WORKSTATION ID [id number] Impression Dobbhoff tube and enteric tube sidehole [...] who have questions please contact the health healthcare consultant that requested your imaging first. Chest One View (Exam End: 09/21/2024 2:01 PM) Result Value WORKSTATION ID [id number] Impression ET tube with tip projecting approximately [...] who have questions please contact the health healthcare consultant that requested your imaging first. Head wo Contrast (Generic) (Exam End: 09/22/2024 4:02 AM) Result Value WORKSTATION ID [id number] Impression Stable head CT status post removal of subcutaneous drain. No new or enlarging hemorrhage. Stable pattern of mass effect Thank you for letting us participate in the care of this patient. If you are a health care provider and have any questions regarding this report, please contact the number below. For patients who have questions please contact the health healthcare consultant that requested your imaging first. Angiogram Chest for Pulmonary Embolus w Contrast (Exam End: 09/26/2024 1:37 PM) Result Value WORKSTATION ID [id number] Impression 1. No pulmonary embolism. 2. Pulmonary [...] who have questions please contact the health healthcare consultant that requested your imaging first. Head wo Contrast (Generic) (Exam End: 09/26/2024 1:37 PM) Result Value WORKSTATION ID [id number] Impression 1. Stable right-sided parenchymal and subdural [...] who have questions please contact the health healthcare consultant that requested your imaging first. Abdomen & Pelvis w Contrast (Exam End: 09/26/2024 1:37 PM) Result Value WORKSTATION ID [id number] Impression 1. No pulmonary embolism. 2. Pulmonary [...] who have questions please contact the health healthcare consultant that requested your imaging first. Chest One View (Exam End: 09/28/2024 4:06 AM) Result Value WORKSTATION ID [id number] Impression 1. Limited examination. 2. Interval removal [...] who have questions please contact the health healthcare consultant that requested your imaging first. Chest One View (Exam End: 09/28/2024 7:58 PM) Result Value WORKSTATION ID [id number] Impression 1. Slightly increased opacity in the [...] who have questions please contact the health healthcare consultant that requested your imaging first. Chest One View (Exam End: 09/29/2024 1:13 PM) Result Value WORKSTATION ID [id number] Impression 1. Limited examination. 2. Stable position [...] who have questions please contact the health healthcare consultant that requested your imaging first. Head wo Contrast (Generic) (Exam End: 10/04/2024 1:40 AM) Result Value WORKSTATION ID [id number] Impression 1. Overall interval improvement of the [...] who have questions please contact the health healthcare consultant that requested your imaging first. Brain wwo Contrast (Generic) (Exam End: 10/04/2024 10:30 PM) Result Value WORKSTATION ID [id number] Impression 1. Fluid collections in the right [...] who have questions please contact the health healthcare consultant that requested your imaging first. SSMENT & [...] PRN #GI - >dysphagia - follow up WOOD FLOOR LAYER recs - NPO diet (Give Meds) - [...] Other - Activity: as tolerated - Dispo: [facility] - Last BM: Last Bowel Movement: 10/04/24 - code status: Attempt Cardiopulmonary Resuscitation - Inpatient Patient Lines/Drains/Airways Status Active Tubes/Lines/Drains Name Placement date Placement time Site Days PIV 10/05/242028 22 gauge;1 in length median vein (underside of arm), right 10/05/242028 -- 1 Enterostomy Tube 10/04/24 1236 gastrostomy tube with balloon midline 10/04/24 1236 -- 2 Urethral Catheter 10/02/24314 14 10/02/24314 -- 4 Please page Vascular Neurology with any questions, #[phone] Anitra Ruiz, DO Department of Neurology [place] [phone] Associated attestation - Karli Morales MD - [...] and prior IPH (04/2024) who presented to [facility] on 09/[facility]24 for placement of Watchman with cardiology. She developed headaches and nausea post-operatively and was found to have a large R iiofahpt-etgaabp-sumwmbhcb IPH, now s/p craniotomy. Patient was intubated from 09/16-09/21 with extubation complicated by stridor requiring re-intubation from 09/21-09/26 (11 days total). WOOD FLOOR LAYER has been following since 09/27 for communication [...] X Bolus Presentation(s): Tested Comments Thin liquids [place] thick liquids Honey thick liquids Pureed solids Dysphagia soft Mechanical soft Regular solids Pills Other X [place] ice Oral Preparatory Phase Mastication: N/A Oral [...] stimulation. Please provide single ice chips between WOOD FLOOR LAYER sessions when she is alert and accepting. [...] safe swallowing strategies. ONGOING Plan: Therapy Frequency (WOOD FLOOR LAYER Eval): 3-5 times/wk Patient is in agreement with the plan of care. Total Minutes (Speech Language Pathology): 45 Areli Hathaway MS, CCC-WOOD FLOOR LAYER Speech-Language Pathologist Inpatient Rehabilitation Pager # [phone] * Roberta Damon - 10/05/2024 3:10 PM EST Hvac Installation Technician Encounter Note Patient Name: Lucero Bruno : [id number] MR#: [id number] Admit Date: 09/16/2024 10:06 AM Hospital Day 19 days Narrative: Visited patient on unit rounds to follow up on visits from Father Donnie Moreira and Freight Handler Hal Pugh. The patient was lying in bed. [...] at discharge. I have met with the financial services representative son Don Pollard to: discuss discharge planning needs. provide the [facility], Office of Care Management letter from the Executive Relations Specialist pertaining to rehab referrals. provide a letter describing our affiliations within the [facility] and educate about their right to choose where referrals are sent. provide the [facility] Star Quality Rating handout. review the different levels of rehab including SNF, swing, and acute. provide a list of facilities within their preferred geographic area. request that they provide at least three choices for referral. They have requested referrals to: [facility] [address] [place] [address] [address] [facility] [address] [place] [address] Note routed to a Casting Supervisor who will communicate referrals to facilities and provide any required information. Aunpama Pastrana, MSN, RN ACM-RN [facility] medical corps officer * Dheeraj Moreira - 10/05/2024 9:28 AM EST Hvac Installation Technician Encounter Note Patient Name: Lucero Bruno : [id number] MR#: [id number] Admit Date: 09/16/2024 10:06 AM Hospital Day 19 days Narrative:Visited to introduce and assess acceptance of Hvac Installation Technician services. Assessment:Family coping positively with stresses of illness/hospitalization at this time. I met with patient family member in [facility] who is very dedicated and comes almost ever day and shared that Lucero is getting better slowly. Intervention and Outcome:Provided emotional, spiritual support and listening presence. Hvac Installation Technician services accepted. Conversation to build trusting relationship. [...] right occipital hemorrhage, inability to swallow, requiring fpc enteral access for nutrition. Catheter functioning well, tolerating tube feeds. Plan: -Gastropexy suture release ordered and to be scheduled in 7-10 days. -IR will sign-off at this time. Please page with further questions and concerns. Liane Holley PA-C Interventional Radiology IR Team Pager [phone] * Rob Guzman MD - 10/05/2024 7:44 AM EST [facility] NEUROSURGERY PROGRESS NOTE ID: [...] tube feeding diet 40 mL/hr at 10/04/24 193 PRN: acetaminophen, 975 mg, Q6H PRN docusate [...] for drainage. Dressing dry. LABS: Recent Labs 10/05/24710/04/242810/03/245 WBC 13.56* 14.67* 15.33* HGB 10.8* 10.4* [...] 09/16/2024 5:26 PM) Result Value WORKSTATION ID [id number] Impression Interval expansion of now large right-sided [...] who have questions please contact the health healthcare consultant that requested your imaging first. Head wo Contrast (Generic) (Exam End: 09/16/2024 11:21 PM) Result Value WORKSTATION ID [id number] Impression CT head: 1. Interval craniotomy with [...] who have questions please contact the health healthcare consultant that requested your imaging first. Venogram Brain (Exam End: 09/16/2024 11:21 PM) Result Value WORKSTATION ID [id number] Impression CT head: 1. Interval craniotomy with [...] who have questions please contact the health healthcare consultant that requested your imaging first. Chest One View (Exam End: 09/16/2024 11:00 PM) Result Value WORKSTATION ID [id number] Impression Satisfactorily positioned enteric and endotracheal tubes. Left lower lobe atelectasis versus pneumonia. Thank you for letting us participate in the care of this patient. If you are a health care provider and have any questions regarding this report, please contact the number below. For patients who have questions please contact the health healthcare consultant that requested your imaging first. Abdomen 1 view (Generic) (Exam End: 09/16/2024 11:00 PM) Result Value WORKSTATION ID [id number] Impression Satisfactorily positioned enteric and endotracheal tubes. Left lower lobe atelectasis versus pneumonia. Thank you for letting us participate in the care of this patient. If you are a health care provider and have any questions regarding this report, please contact the number below. For patients who have questions please contact the health healthcare consultant that requested your imaging first. Head wo Contrast (Generic) (Exam End: 09/17/2024 4:51 AM) Result Value WORKSTATION ID [id number] Impression Increased size and density of dominant [...] who have questions please contact the health healthcare consultant that requested your imaging first. Chest One View (Exam End: 09/17/2024 2:13 PM) Result Value WORKSTATION ID [id number] Impression 1. No focal opacity in lung [...] who have questions please contact the health healthcare consultant that requested your imaging first. Chest One View (Exam End: 09/18/2024 8:43 AM) Result Value WORKSTATION ID [id number] Impression Tubes and lines as described. Blunting of the left costophrenic angle suggests tiny layering left effusion with associated left basilar consolidation/atelectasis Thank you for letting us participate in the care of this patient. If you are a health care provider and have any questions regarding this report, please contact the number below. For patients who have questions please contact the health healthcare consultant that requested your imaging first. Abdomen 1 view (Generic) (Exam End: 09/18/2024 12:31 PM) Result Value WORKSTATION ID [id number] Impression Dobbhoff tube tip along the greater curve of the stomach. Thank you for letting us participate in the care of this patient. If you are a health care provider and have any questions regarding this report, please contact the number below. For patients who have questions please contact the health healthcare consultant that requested your imaging first. Brain wwo Contrast (Generic) (Exam End: 09/19/2024 5:43 PM) Result Value WORKSTATION ID [id number] Impression Unchanged size of large right cerebral hemisphere ICH status post partial evacuation. Numerous small foci of decreased acute infarction both along and separate from the site of hemorrhage. These foci are present in both cerebral hemispheres and have a pattern most consistent with embolic infarction. No evidence of REELER OPERATOR malignancy Thank you for letting us participate in the care of this patient. If you are a health care provider and have any questions regarding this report, please contact the number below. For patients who have questions please contact the health healthcare consultant that requested your imaging first. Head wo Contrast (Generic) (Exam End: 09/21/2024 3:50 AM) Result Value WORKSTATION ID [id number] Impression Stable hemorrhage right temporal, parietal, right [...] who have questions please contact the health healthcare consultant that requested your imaging first. Abdomen 1 view (Generic) (Exam End: 09/21/2024 2:01 PM) Result Value WORKSTATION ID [id number] Impression Dobbhoff tube and enteric tube sidehole [...] who have questions please contact the health healthcare consultant that requested your imaging first. Chest One View (Exam End: 09/21/2024 2:01 PM) Result Value WORKSTATION ID [id number] Impression ET tube with tip projecting approximately [...] who have questions please contact the health healthcare consultant that requested your imaging first. Head wo Contrast (Generic) (Exam End: 09/22/2024 4:02 AM) Result Value WORKSTATION ID [id number] Impression Stable head CT status post removal of subcutaneous drain. No new or enlarging hemorrhage. Stable pattern of mass effect Thank you for letting us participate in the care of this patient. If you are a health care provider and have any questions regarding this report, please contact the number below. For patients who have questions please contact the health healthcare consultant that requested your imaging first. Angiogram Chest for Pulmonary Embolus w Contrast (Exam End: 09/26/2024 1:37 PM) Result Value WORKSTATION ID [id number] Impression 1. No pulmonary embolism. 2. Pulmonary [...] who have questions please contact the health healthcare consultant that requested your imaging first. Head wo Contrast (Generic) (Exam End: 09/26/2024 1:37 PM) Result Value WORKSTATION ID [id number] Impression 1. Stable right-sided parenchymal and subdural [...] who have questions please contact the health healthcare consultant that requested your imaging first. Abdomen & Pelvis w Contrast (Exam End: 09/26/2024 1:37 PM) Result Value WORKSTATION ID [id number] Impression 1. No pulmonary embolism. 2. Pulmonary [...] who have questions please contact the health healthcare consultant that requested your imaging first. Chest One View (Exam End: 09/28/2024 4:06 AM) Result Value WORKSTATION ID [id number] Impression 1. Limited examination. 2. Interval removal [...] who have questions please contact the health healthcare consultant that requested your imaging first. Chest One View (Exam End: 09/28/2024 7:58 PM) Result Value WORKSTATION ID [id number] Impression 1. Slightly increased opacity in the [...] who have questions please contact the health healthcare consultant that requested your imaging first. Chest One View (Exam End: 09/29/2024 1:13 PM) Result Value WORKSTATION ID [id number] Impression 1. Limited examination. 2. Stable position [...] who have questions please contact the health healthcare consultant that requested your imaging first. Head wo Contrast (Generic) (Exam End: 10/04/2024 1:40 AM) Result Value WORKSTATION ID [id number] Impression 1. Overall interval improvement of the [...] who have questions please contact the health healthcare consultant that requested your imaging first. Brain wwo Contrast (Generic) (Exam End: 10/04/2024 10:30 PM) Result Value WORKSTATION ID [id number] Impression 1. Fluid collections in the right [...] who have questions please contact the health healthcare consultant that requested your imaging first. Assessment: 74 y.o. female with PMHx notable for Afib (taking ASA, previously on apixaban-stopped taking after IPH in April 2024), CHRISTOPHER, HLD, BMI of 36, prior IPH 04/2024 who presented to hospital 09/16/24 for placement of Watchman with cardiology. She developed headaches and nausea post op and CT scan noted large R cclqjzia-tbmgfjo-umiyhsosp IPH. Now s/p R craniotomy for IPH [...] JESSI For questions please call NSGY pager [phone] Rob Guzman MD Clinical Documentation Improvement: Active [...] Gissell Velazco MD Primary Provider: Leila Manjarrez [phone] Hospital Day: Hospital Day: 20 Patient ID [...] [id number] 10/03/24 0405 10/02/24 0149 10/01/24 0021 WBC 13.56* 14.67* 15.33* 19.16* 22.24* HGB 10.8* 10.4* 10.5* 10.1* 9.9* HCT 33.5* 32.8* 32.4* 31.1* 29.2* PLATELET 241 303 359* 399* 370* NEUTROABS 11.69* 12.52* 13.43* 16.45* 20.01* Recent Labs 10/05/24 0008 10/04/24 0029 10/03/24 0405 10/02/249 10/01/24 0021 NA 139 142 146* 146* 141 K 4.2 4.1 4.0 3.6 3.2* CL 103 106 108* 108* 105 CO2 29 26 30 28 28 BUN 24* 24* 22* 27* 23* CREATININE 0.36* 0.36* 0.35* 0.39* 0.43* GLUCOSE 136 166 199 123 124 Recent Labs 10/05/248 10/04/249 10/03/24 0405 CALCIUM 9.1 8.9 9.1 MAGNESIUM [...] PRN #GI - >dysphagia - follow up WOOD FLOOR LAYER recs - No diet orders on file [...] Other - Activity: as tolerated - Dispo: [facility] facility - Last BM: Last Bowel Movement: 10/04/24 - code status: Attempt Cardiopulmonary Resuscitation - Inpatient Patient Lines/Drains/Airways Status Active Tubes/Lines/Drains Name Placement date Placement time Site Days PIV 10/04/241703 22 gauge;1.75 in length cephalic vein (lateral side of arm), right 10/04/24 1704 -- 1 Enterostomy Tube 10/04/24 1236 gastrostomy tube with balloon midline 10/04/24 1236 -- 1 Urethral Catheter 10/02/24 0315 14 10/02/24 0315 -- 3 Fecal Incontinence Cheesemaker Helper 10/02/24 1208 10/02/24 1208 -- 3 Please page Vascular Neurology with any questions, #[phone] Anitra Ruiz, Department of Neurology [place] [phone] Associated attestation - Karli Morales MD - [...] RN NISCU transported with RN's back to [facility] * Agustin Loving PA - 10/04/2024 11:16 [...] 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 for watchman procedure subsequently developing a large [...] with grab bars. Residence has 2 small RUST. At her baseline, patient is independent in all aspects. 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 Please encourage up to chair for meal times as able. Subjective: communicates via gestures, waves and gives thumbs up, nods head. Objective: Patient seen for physical therapy and demonstrated the following: Pain: Endorses pain in L shoulder, RN going to give her tylenol, L UE positioned on pillows. Vital Signs: HR=61 SpO2=98% 2 L O2 nc UI=932/74 (93) Cognition/Vision: alert, follows commands in R [...] the current findings, Anticipated Discharge Disposition (PT[facility] medically ready for hospital discharge. [...] (TE-F x 2) Hortencia Matta PT Pager: [phone] Physical Therapy Inpatient Rehabilitation Department * Lucie Caldera, OT - 10/04/2024 9:50 AM EST Occupational Therapy Treatment Note Treatment Number OT: 4 Patient Dx: Lucero Bruno is a 74 y.o. female admitted on 09/16/2024. 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 [place] watchman procedure subsequently developing a [...] 09/18/24 1229 right nostril 16 Fecal Incontinence Cheesemaker Helper 10/02/24 1208 10/02/24 1208 no documentation 2 [...] and therapy goals. [facility]ticipated Discharge Dis[facility] Equipment Recommendations: Equipment Needs Upon Discharge [...] OTR/L Occupational Therapy Rehabilitation Department Pager # [phone] * Crys Suarez MD - 10/04/2024 9:00 AM EST [facility] NEUROSURGERY PROGRESS NOTE ID: [...] PLATELET 303 359* 399* Recent Labs 10/04/242810/03/245 10/02/24148 NA 142 146* 146* K 4.1 4.0 3.6 CL 106 108* 108* CO2 26 30 28 BUN 24* 22* 27* CREATININE 0.36* 0.35* 0.39* No results for input(s): PT, INR in the last 72 hours. IMAGING: Results for orders placed or performed during the hospital encounter of 09/16/24 CT Head wo Contrast (Generic) (Exam End: 09/16/2024 5:26 PM) Result Value WORKSTATION ID [id number] Impression Interval expansion of now large right-sided [...] who have questions please contact the health healthcare consultant that requested your imaging first. Head wo Contrast (Generic) (Exam End: 09/16/2024 11:21 PM) Result Value WORKSTATION ID [id number] Impression CT head: 1. Interval craniotomy with [...] who have questions please contact the health healthcare consultant that requested your imaging first. Venogram Brain (Exam End: 09/16/2024 11:21 PM) Result Value WORKSTATION ID [id number] Impression CT head: 1. Interval craniotomy with [...] who have questions please contact the health healthcare consultant that requested your imaging first. Chest One View (Exam End: 09/16/2024 11:00 PM) Result Value WORKSTATION ID [id number] Impression Satisfactorily positioned enteric and endotracheal tubes. Left lower lobe atelectasis versus pneumonia. Thank you for letting us participate in the care of this patient. If you are a health care provider and have any questions regarding this report, please contact the number below. For patients who have questions please contact the health healthcare consultant that requested your imaging first. Abdomen 1 view (Generic) (Exam End: 09/16/2024 11:00 PM) Result Value WORKSTATION ID [id number] Impression Satisfactorily positioned enteric and endotracheal tubes. Left lower lobe atelectasis versus pneumonia. Thank you for letting us participate in the care of this patient. If you are a health care provider and have any questions regarding this report, please contact the number below. For patients who have questions please contact the health healthcare consultant that requested your imaging first. Head wo Contrast (Generic) (Exam End: 09/17/2024 4:51 AM) Result Value WORKSTATION ID [id number] Impression Increased size and density of dominant [...] who have questions please contact the health healthcare consultant that requested your imaging first. Chest One View (Exam End: 09/17/2024 2:13 PM) Result Value WORKSTATION ID [id number] Impression 1. No focal opacity in lung [...] who have questions please contact the health healthcare consultant that requested your imaging first. Chest One View (Exam End: 09/18/2024 8:43 AM) Result Value WORKSTATION ID [id number] Impression Tubes and lines as described. Blunting of the left costophrenic angle suggests tiny layering left effusion with associated left basilar consolidation/atelectasis Thank you for letting us participate in the care of this patient. If you are a health care provider and have any questions regarding this report, please contact the number below. For patients who have questions please contact the health healthcare consultant that requested your imaging first. Abdomen 1 view (Generic) (Exam End: 09/18/2024 12:31 PM) Result Value WORKSTATION ID [id number] Impression Dobbhoff tube tip along the greater curve of the stomach. Thank you for letting us participate in the care of this patient. If you are a health care provider and have any questions regarding this report, please contact the number below. For patients who have questions please contact the health healthcare consultant that requested your imaging first. Brain wwo Contrast (Generic) (Exam End: 09/19/2024 5:43 PM) Result Value WORKSTATION ID [id number] Impression Unchanged size of large right cerebral hemisphere ICH status post partial evacuation. Numerous small foci of decreased acute infarction both along and separate from the site of hemorrhage. These foci are present in both cerebral hemispheres and have a pattern most consistent with embolic infarction. No evidence of REELER OPERATOR malignancy Thank you for letting us participate in the care of this patient. If you are a health care provider and have any questions regarding this report, please contact the number below. For patients who have questions please contact the health healthcare consultant that requested your imaging first. Head wo Contrast (Generic) (Exam End: 09/21/2024 3:50 AM) Result Value WORKSTATION ID [id number] Impression Stable hemorrhage right temporal, parietal, right [...] who have questions please contact the health healthcare consultant that requested your imaging first. Abdomen 1 view (Generic) (Exam End: 09/21/2024 2:01 PM) Result Value WORKSTATION ID [id number] Impression Dobbhoff tube and enteric tube sidehole [...] who have questions please contact the health healthcare consultant that requested your imaging first. Chest One View (Exam End: 09/21/2024 2:01 PM) Result Value WORKSTATION ID [id number] Impression ET tube with tip projecting approximately [...] who have questions please contact the health healthcare consultant that requested your imaging first. Head wo Contrast (Generic) (Exam End: 09/22/2024 4:02 AM) Result Value WORKSTATION ID [id number] Impression Stable head CT status post removal of subcutaneous drain. No new or enlarging hemorrhage. Stable pattern of mass effect Thank you for letting us participate in the care of this patient. If you are a health care provider and have any questions regarding this report, please contact the number below. For patients who have questions please contact the health healthcare consultant that requested your imaging first. Angiogram Chest for Pulmonary Embolus w Contrast (Exam End: 09/26/2024 1:37 PM) Result Value WORKSTATION ID [id number] Impression 1. No pulmonary embolism. 2. Pulmonary [...] who have questions please contact the health healthcare consultant that requested your imaging first. Head wo Contrast (Generic) (Exam End: 09/26/2024 1:37 PM) Result Value WORKSTATION ID [id number] Impression 1. Stable right-sided parenchymal and subdural [...] who have questions please contact the health healthcare consultant that requested your imaging first. Abdomen & Pelvis w Contrast (Exam End: 09/26/2024 1:37 PM) Result Value WORKSTATION ID [id number] Impression 1. No pulmonary embolism. 2. Pulmonary [...] who have questions please contact the health healthcare consultant that requested your imaging first. Chest One View (Exam End: 09/28/2024 4:06 AM) Result Value WORKSTATION ID [id number] Impression 1. Limited examination. 2. Interval removal [...] who have questions please contact the health healthcare consultant that requested your imaging first. Chest One View (Exam End: 09/28/2024 7:58 PM) Result Value WORKSTATION ID [id number] Impression 1. Slightly increased opacity in the [...] who have questions please contact the health healthcare consultant that requested your imaging first. Chest One View (Exam End: 09/29/2024 1:13 PM) Result Value WORKSTATION ID [id number] Impression 1. Limited examination. 2. Stable position [...] who have questions please contact the health healthcare consultant that requested your imaging first. Head wo Contrast (Generic) (Exam End: 10/04/2024 1:40 AM) Result Value WORKSTATION ID [id number] Impression 1. Overall interval improvement of the [...] who have questions please contact the health healthcare consultant that requested your imaging first. Assessment: 74 y.o. female with PMHx notable for Afib (taking ASA, previously on apixaban-stopped taking after IPH in April 2024), CHRISTOPHER, HLD, BMI of 36, prior IPH 04/2024 who presented to hospital 09/16/24 for placement of Watchman with cardiology. She developed headaches and nausea post op and CT scan noted large R [id number] IPH. Now s/p R craniotomy for IPH [...] JESSI For questions please call NSGY pager [phone] Crys Suarez MD Clinical Documentation Improvement: Active Hospital Problems Diagnosis Right occipital hemorrhage with associated vassogenic edema, anticoagulation associated, probableCAA Severe protein-calorie malnutrition Presence of Watchman left atrial appendage closure device S/P craniotomy Resolved Hospital Problems No resolved problems to display. * Areli Hathaway, WOOD FLOOR LAYER - 10/04/2024 8:57 AM EST Speech Pathology Contact Note Chart reviewed. Patient is currently NPO for planned PEG placement. We will follow up on next treatment date as schedule allows. Please secure chat with questions, thanks! Areli Hathaway MS, CCC-WOOD FLOOR LAYER Speech-Language Pathologist Inpatient Rehabilitation Pager # [phone] * Sol Hazel RD - 10/04/2024 7:45 [...] Follow-up, Tube Feeding Nutrition Recommendations: NPO per WOOD FLOOR LAYER 09/30 PEG placement planned for today 10/04. [...] steps: feeds not at goal, need for fpc nutrition planif unable to advance diet Current [...] 14 10/02/24 0315 -- 2 Fecal Incontinence Cheesemaker Helper 10/02/24 1208 10/02/24 1208 -- 2 Oxygen [...] encounter: 79.3 kg (174 lb 12.8 oz). [place] Body Weight (IBW) (kg): 45.45 Wt Readings [...] VHP rather than Nutren 1.5, team aware. WOOD FLOOR LAYER continues to recommend NPO per 09/30 note. LBM 09/29, optimize regimen. Per EMR, pt with 4% wt loss in <1 week (196lbs on 09/24 to 188lbs on 09/28) which is clinically significant. Unable to complete full NFPE at this time. Planned for upcoming PEG placement. 09/29: TF Dc'd 09/28 @ 1835hr. WOOD FLOOR LAYER continues to recommend NPO, need for alternate [...] maxillary line): Not assessed Lean Muscle Loss Jain region (temporalis muscle): None present Clavicle bone [...] injury (Maribel, JPEN J Parenteral Enteral Nutr. 2011; 36(3): 273-83) Nutrition to continue to follow up while inpatient Sol Hazel MS, RD, LD Clinical Nutrition * Gissell Velazco MD - 10/04/2024 6:40 AM EST Images from the original note were not included. VASCULAR NEUROLOGY DAILY PROGRESS NOTE Admit Date 09/16/2024 Responsible Attending: Gissell Velazco MD Primary Provider: Leilamukund Manjarrez [phone] Hospital Day: Hospital Day: 19 Patient ID [...] yesterday - CHAVEZ CARRASCO - NPO at [place] for possible PEG today EXAM Last value [...] 0405 10/02/24 0149 10/01/24 0021 09/30/24 0144 WBC 14.67* 15.33* 19.16* 22.24* 25.89* HGB 10.4* 10.5* 10.1* 9.9* 10.1* HCT 32.8* 32.4* 31.1* 29.2* 31.0* PLATELET 303 359* 399* 370* 376* NEUTROABS 12.52* 13.43* 16.45* 20.01* 22.26* Recent Labs 10/04/242810/03/24 0405 10/02/249 10/01/242009/30/24 014 NA 142 146* 146* 141 139 [...] 168 hours. No results for input(s): PHART, CBQ6GWK, PO2ART, WAX4BXS in the last 168 hours. No results [...] PRN #GI - >dysphagia - follow up WOOD FLOOR LAYER recs - NPO diet (Give Meds) - [...] Other - Activity: as tolerated - Dispo: [facility] - Last BM: Last Bowel Movement: [...] 09/18/24 1229 right nostril 16 Fecal Incontinence Cheesemaker Helper 10/02/24 1208 10/02/24 1208 -- 2 Please page Vascular Neurology with any questions, #[phone] Anitra Ruiz, DO Department of Neurology [place] [id number] Neurology Attending Attestation I evaluated the patient [...] Gissell Velazco MD Primary Provider: Leila Manjarrez [phone] Hospital Day: Hospital Day: 18 Patient ID [...] 168 hours. No results for input(s): PHART, OZB8AVY, PO2ART, TCQ9KRZ in the last 168 hours. No results [...] PRN #GI - >dysphagia - follow up WOOD FLOOR LAYER recs - NPO diet (Give Meds) - [...] Other - Activity: as tolerated - Dispo: [facility] - Last BM: Last Bowel Movement: 10/02/24 - code status: Attempt Cardiopulmonary Resuscitation - Inpatient Patient Lines/Drains/Airways Status Active Tubes/Lines/Drains Name Placement date Placement time Site Days Percutaneous Central Line 09/17/24 1405 Triple Lumen subclavian vein, right 09/17/24 1405 -- 16 Urethral Catheter 10/02/245 14 10/02/24 0315 -- 1 Naso/Oral Tube 09/18/24 1229 small bore;nonweighted right nostril 09/18/24 1229 right nostril 15 Fecal Incontinence Cheesemaker Helper 10/02/24 1208 10/02/24 1208 -- 1 Please page Vascular Neurology with any questions, #[phone] Clarisse Duke APRN Department of Neurology [place] [id number] * Chase Cárdenas RN - 10/03/2024 6:34 AM EST Pt rolled and repositioned per policy. * Chase Cárdenas RN - 10/03/2024 12:07 AM EST Page Sent Successfully Page Confirmation To Pager number: [phone] From Submitter: Chase Cárdenas Urgency Level: Call Me Callback Number: [phone] The following Message was sent: [Call Me] - Callback:[phone] Damion: Need clarification as soon as possible regarding NPO @ 0000 - Chase Cárdenas The following status was returned from the leg assembler: Page for [phone] successfully sent to [phone] having status of Available. * Chase Cárdenas RN - 10/02/2024 11:46 PM EST Page Sent Successfully Page Confirmation To Pager number: [phone] From Submitter: Chase Cárdenas Urgency Level: Call Me Callback Number: [phone] The following Message was sent: [Call Me] - Callback:[phone] Damion: Did you want TF held [id number] for PEG? Do we do PEGs on Sundays? - Chase Cárdenas The following status was returned from the leg assembler: Page for [phone] successfully sent to [phone] having status of Available.prog * Clarisse Duke, RUBBER THREAD SPOOLER - 10/02/2024 2:29 PM EST Images from the original note were not included. VASCULAR NEUROLOGY DAILY PROGRESS NOTE Admit Date 09/16/2024 Responsible Attending: Gissell Velazco MD Primary Provider: Leila Manjarrez [phone] Hospital Day: Hospital Day: 17 Patient ID [...] 0149 10/01/24 0021 09/30/24 0144 09/29/24 0109 09/28/24 035 WBC 19.16* 22.24* 25.89* 26.40* 35.37* HGB 10.1* 9.9* 10.1* 10.0* 11.0* HCT 31.1* 29.2* 31.0* 30.9* 34.0* PLATELET 399* 370* 376* 397* 443* NEUTROABS 16.45* 20.01* 22.26* 22.77* 30.79* Recent Labs 10/02/24 01410/01/24 0021 09/30/24 0144 09/28/24 0358 09/27/24 1646 [...] CK 78 No results for input(s): PHART, NOI1IMF, PO2ART, CLI0ZSR in the last 168 hours. No results [...] PRN #GI - >dysphagia - follow up WOOD FLOOR LAYER recs - NPO diet (Give Meds) NPO [...] Other - Activity: as tolerated - Dispo: [facility] - Last BM: Last Bowel Movement: [...] 09/18/24 1229 right nostril 14 Fecal Incontinence Cheesemaker Helper 10/02/24 1208 10/02/24 1208 -- less than 1 Please page Vascular Neurology with any questions, #[phone] Clarisse Duke APRN [place] [address] * Annamarie Nelson - 10/01/2024 4:04 PM [...] NIH Stroke Scale NIH Stroke Scale Date 10/24/24 NIH Stroke Scale Time 1645 Level of [...] 09/16/2024 5:26 PM) Result Value WORKSTATION ID [id number] Impression Interval expansion of now large right-sided [...] who have questions please contact the health healthcare consultant that requested your imaging first. Head wo Contrast (Generic) (Exam End: 09/16/2024 11:21 PM) Result Value WORKSTATION ID [id number] Impression CT head: 1. Interval craniotomy with [...] who have questions please contact the health healthcare consultant that requested your imaging first. Venogram Brain (Exam End: 09/16/2024 11:21 PM) Result Value WORKSTATION ID [id number] Impression CT head: 1. Interval craniotomy with [...] who have questions please contact the health healthcare consultant that requested your imaging first. Chest One View (Exam End: 09/16/2024 11:00 PM) Result Value WORKSTATION ID [id number] Impression Satisfactorily positioned enteric and endotracheal tubes. Left lower lobe atelectasis versus pneumonia. Thank you for letting us participate in the care of this patient. If you are a health care provider and have any questions regarding this report, please contact the number below. For patients who have questions please contact the health healthcare consultant that requested your imaging first. Abdomen 1 view (Generic) (Exam End: 09/16/2024 11:00 PM) Result Value WORKSTATION ID [id number] Impression Satisfactorily positioned enteric and endotracheal tubes. Left lower lobe atelectasis versus pneumonia. Thank you for letting us participate in the care of this patient. If you are a health care provider and have any questions regarding this report, please contact the number below. For patients who have questions please contact the health healthcare consultant that requested your imaging first. Head wo Contrast (Generic) (Exam End: 09/17/2024 4:51 AM) Result Value WORKSTATION ID [id number] Impression Increased size and density of dominant [...] who have questions please contact the health healthcare consultant that requested your imaging first. Chest One View (Exam End: 09/17/2024 2:13 PM) Result Value WORKSTATION ID [id number] Impression 1. No focal opacity in lung [...] who have questions please contact the health healthcare consultant that requested your imaging first. Chest One View (Exam End: 09/18/2024 8:43 AM) Result Value WORKSTATION ID [id number] Impression Tubes and lines as described. Blunting of the left costophrenic angle suggests tiny layering left effusion with associated left basilar consolidation/atelectasis Thank you for letting us participate in the care of this patient. If you are a health care provider and have any questions regarding this report, please contact the number below. For patients who have questions please contact the health healthcare consultant that requested your imaging first. Abdomen 1 view (Generic) (Exam End: 09/18/2024 12:31 PM) Result Value WORKSTATION ID [id number] Impression Dobbhoff tube tip along the greater curve of the stomach. Thank you for letting us participate in the care of this patient. If you are a health care provider and have any questions regarding this report, please contact the number below. For patients who have questions please contact the health healthcare consultant that requested your imaging first. Brain wwo Contrast (Generic) (Exam End: 09/19/2024 5:43 PM) Result Value WORKSTATION ID [id number] Impression Unchanged size of large right cerebral hemisphere ICH status post partial evacuation. Numerous small foci of decreased acute infarction both along and separate from the site of hemorrhage. These foci are present in both cerebral hemispheres and have a pattern most consistent with embolic infarction. No evidence of REELER OPERATOR malignancy Thank you for letting us participate in the care of this patient. If you are a health care provider and have any questions regarding this report, please contact the number below. For patients who have questions please contact the health healthcare consultant that requested your imaging first. Head wo Contrast (Generic) (Exam End: 09/21/2024 3:50 AM) Result Value WORKSTATION ID [id number] Impression Stable hemorrhage right temporal, parietal, right [...] who have questions please contact the health healthcare consultant that requested your imaging first. Abdomen 1 view (Generic) (Exam End: 09/21/2024 2:01 PM) Result Value WORKSTATION ID [id number] Impression Dobbhoff tube and enteric tube sidehole [...] who have questions please contact the health healthcare consultant that requested your imaging first. Chest One View (Exam End: 09/21/2024 2:01 PM) Result Value WORKSTATION ID [id number] Impression ET tube with tip projecting approximately [...] who have questions please contact the health healthcare consultant that requested your imaging first. Head wo Contrast (Generic) (Exam End: 09/22/2024 4:02 AM) Result Value WORKSTATION ID [id number] Impression Stable head CT status post removal of subcutaneous drain. No new or enlarging hemorrhage. Stable pattern of mass effect Thank you for letting us participate in the care of this patient. If you are a health care provider and have any questions regarding this report, please contact the number below. For patients who have questions please contact the health healthcare consultant that requested your imaging first. Angiogram Chest for Pulmonary Embolus w Contrast (Exam End: 09/26/2024 1:37 PM) Result Value WORKSTATION ID [id number] Impression 1. No pulmonary embolism. 2. Pulmonary [...] who have questions please contact the health healthcare consultant that requested your imaging first. Head wo Contrast (Generic) (Exam End: 09/26/2024 1:37 PM) Result Value WORKSTATION ID [id number] Impression 1. Stable right-sided parenchymal and subdural [...] who have questions please contact the health healthcare consultant that requested your imaging first. Abdomen & Pelvis w Contrast (Exam End: 09/26/2024 1:37 PM) Result Value WORKSTATION ID [id number] Impression 1. No pulmonary embolism. 2. Pulmonary [...] who have questions please contact the health healthcare consultant that requested your imaging first. Chest One View (Exam End: 09/28/2024 4:06 AM) Result Value WORKSTATION ID [id number] Impression 1. Limited examination. 2. Interval removal [...] who have questions please contact the health healthcare consultant that requested your imaging first. Chest One View (Exam End: 09/28/2024 7:58 PM) Result Value WORKSTATION ID [id number] Impression 1. Slightly increased opacity in the [...] who have questions please contact the health healthcare consultant that requested your imaging first. Chest One View (Exam End: 09/29/2024 1:13 PM) Result Value WORKSTATION ID [id number] Impression 1. Limited examination. 2. Stable position [...] who have questions please contact the health healthcare consultant that requested your imaging first. Assessment and [...] brain wo contrast -CTA head & neck -PT/OT/WOOD FLOOR LAYER -Neurosurgery consulted # Leukocytosis # Pneumonia # [...] Yes Jung Yun MD Vascular Neurology Pager [phone] Neurology Attending Attestation I evaluated the patient [...] documented. Gissell Velazco MD Vascular Neurology Standard [facility] Swallow Screen: This screen is to be [...] diet as medical provider deems appropriate. Consider WOOD FLOOR LAYER consult for full evaluation and diet recommendations. If NO to any of the responses, stop immediately, keep patient NPO and notify physician. * KatlynJo Mercedes, RD - 10/01/2024 8:45 AM EST Nutrition Progress Note Lucero Bruno is a 74 y.o. 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 today for watchman procedure subsequently developing a large R ICH requiring intubation for airway protection, heparin reversal with protamine and emergent OR for craniotomy and hematoma evacuation. Interval History No data found. Reason for Assessment: Follow-up, Tube Feeding Nutrition Recommendations: NPO per WOOD FLOOR LAYER 09/30 Continue TF and limit holds as [...] steps: feeds not at goal, need for fpc nutrition planif unable to advance diet Current [...] encounter: 85.5 kg (188 lb 7.9 oz). [place] Body Weight (IBW) (kg): 45.45 Wt Readings [...] VHP rather than Nutren 1.5, team aware. WOOD FLOOR LAYER continues to recommend NPO per 09/30 note. LBM 09/29, optimize regimen. Per EMR, pt with 4% wt loss in <1 week (196lbs on 09/24 to 188lbs on 09/28) which is clinically significant. Unable to complete full NFPE at this time. Planned for upcoming PEG placement. 09/29: TF Dc'd 09/28 @ 1835hr. WOOD FLOOR LAYER continues to recommend NPO, need for alternate [...] maxillary line): Not assessed Lean Muscle Loss Jain region (temporalis muscle): None present Clavicle bone [...] Situational Awareness & Contingency Planning * Kymberly Baptiste PT - 09/30/2024 2:56 PM EST Physical Therapy Note Treatment Number PT: 4 Patient profile: Lucero Bruno ( ) is a 74 y.o. 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 [place] watchman procedure subsequently developing a large [...] in all aspects. 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 [...] plan as stated. Time IN / OUT: [id number] Total Minutes, Physical Therapy: 28 Billing Code: TEF1 Kymberly Baptiste PT, DPT, NCS Pager: [phone] Physical Therapy Inpatient Rehabilitation Department * Rob Guzman MD - 09/30/2024 2:28 PM EST [facility] NEUROSURGERY PROGRESS NOTE ID: [...] stacey LABS: Recent Labs 09/30/24 01409/29/24 0109 09/28/24 035 WBC 25.89* 26.40* 35.37* HGB 10.1* 10.0* 11.0* PLATELET 376* 397* 443* Recent Labs 09/30/24 0144 09/28/248 09/27/24 1646 NA 139 138 -- K [...] 09/16/2024 5:26 PM) Result Value WORKSTATION ID [id number] Impression Interval expansion of now large right-sided [...] who have questions please contact the health healthcare consultant that requested your imaging first. Head wo Contrast (Generic) (Exam End: 09/16/2024 11:21 PM) Result Value WORKSTATION ID [id number] Impression CT head: 1. Interval craniotomy with [...] who have questions please contact the health healthcare consultant that requested your imaging first. Venogram Brain (Exam End: 09/16/2024 11:21 PM) Result Value WORKSTATION ID [id number] Impression CT head: 1. Interval craniotomy with [...] who have questions please contact the health healthcare consultant that requested your imaging first. Chest One View (Exam End: 09/16/2024 11:00 PM) Result Value WORKSTATION ID [id number] Impression Satisfactorily positioned enteric and endotracheal tubes. Left lower lobe atelectasis versus pneumonia. Thank you for letting us participate in the care of this patient. If you are a health care provider and have any questions regarding this report, please contact the number below. For patients who have questions please contact the health healthcare consultant that requested your imaging first. Abdomen 1 view (Generic) (Exam End: 09/16/2024 11:00 PM) Result Value WORKSTATION ID [id number] Impression Satisfactorily positioned enteric and endotracheal tubes. Left lower lobe atelectasis versus pneumonia. Thank you for letting us participate in the care of this patient. If you are a health care provider and have any questions regarding this report, please contact the number below. For patients who have questions please contact the health healthcare consultant that requested your imaging first. Head wo Contrast (Generic) (Exam End: 09/17/2024 4:51 AM) Result Value WORKSTATION ID [id number] Impression Increased size and density of dominant [...] who have questions please contact the health healthcare consultant that requested your imaging first. Chest One View (Exam End: 09/17/2024 2:13 PM) Result Value WORKSTATION ID [id number] Impression 1. No focal opacity in lung [...] who have questions please contact the health healthcare consultant that requested your imaging first. Chest One View (Exam End: 09/18/2024 8:43 AM) Result Value WORKSTATION ID [id number] Impression Tubes and lines as described. Blunting of the left costophrenic angle suggests tiny layering left effusion with associated left basilar consolidation/atelectasis Thank you for letting us participate in the care of this patient. If you are a health care provider and have any questions regarding this report, please contact the number below. For patients who have questions please contact the health healthcare consultant that requested your imaging first. Abdomen 1 view (Generic) (Exam End: 09/18/2024 12:31 PM) Result Value WORKSTATION ID [id number] Impression Dobbhoff tube tip along the greater curve of the stomach. Thank you for letting us participate in the care of this patient. If you are a health care provider and have any questions regarding this report, please contact the number below. For patients who have questions please contact the health healthcare consultant that requested your imaging first. Brain wwo Contrast (Generic) (Exam End: 09/19/2024 5:43 PM) Result Value WORKSTATION ID [id number] Impression Unchanged size of large right cerebral hemisphere ICH status post partial evacuation. Numerous small foci of decreased acute infarction both along and separate from the site of hemorrhage. These foci are present in both cerebral hemispheres and have a pattern most consistent with embolic infarction. No evidence of REELER OPERATOR malignancy Thank you for letting us participate in the care of this patient. If you are a health care provider and have any questions regarding this report, please contact the number below. For patients who have questions please contact the health healthcare consultant that requested your imaging first. Head wo Contrast (Generic) (Exam End: 09/21/2024 3:50 AM) Result Value WORKSTATION ID [id number] Impression Stable hemorrhage right temporal, parietal, right [...] who have questions please contact the health healthcare consultant that requested your imaging first. Abdomen 1 view (Generic) (Exam End: 09/21/2024 2:01 PM) Result Value WORKSTATION ID [id number] Impression Dobbhoff tube and enteric tube sidehole [...] who have questions please contact the health healthcare consultant that requested your imaging first. Chest One View (Exam End: 09/21/2024 2:01 PM) Result Value WORKSTATION ID [id number] Impression ET tube with tip projecting approximately [...] who have questions please contact the health healthcare consultant that requested your imaging first. Head wo Contrast (Generic) (Exam End: 09/22/2024 4:02 AM) Result Value WORKSTATION ID [id number] Impression Stable head CT status post removal of subcutaneous drain. No new or enlarging hemorrhage. Stable pattern of mass effect Thank you for letting us participate in the care of this patient. If you are a health care provider and have any questions regarding this report, please contact the number below. For patients who have questions please contact the health healthcare consultant that requested your imaging first. Angiogram Chest for Pulmonary Embolus w Contrast (Exam End: 09/26/2024 1:37 PM) Result Value WORKSTATION ID [id number] Impression 1. No pulmonary embolism. 2. Pulmonary [...] who have questions please contact the health healthcare consultant that requested your imaging first. Head wo Contrast (Generic) (Exam End: 09/26/2024 1:37 PM) Result Value WORKSTATION ID [id number] Impression 1. Stable right-sided parenchymal and subdural [...] who have questions please contact the health healthcare consultant that requested your imaging first. Abdomen & Pelvis w Contrast (Exam End: 09/26/2024 1:37 PM) Result Value WORKSTATION ID [id number] Impression 1. No pulmonary embolism. 2. Pulmonary [...] who have questions please contact the health healthcare consultant that requested your imaging first. Chest One View (Exam End: 09/28/2024 4:06 AM) Result Value WORKSTATION ID [id number] Impression 1. Limited examination. 2. Interval removal [...] who have questions please contact the health healthcare consultant that requested your imaging first. Chest One View (Exam End: 09/28/2024 7:58 PM) Result Value WORKSTATION ID [id number] Impression 1. Slightly increased opacity in the [...] who have questions please contact the health healthcare consultant that requested your imaging first. Chest One View (Exam End: 09/29/2024 1:13 PM) Result Value WORKSTATION ID [id number] Impression 1. Limited examination. 2. Stable position [...] who have questions please contact the health healthcare consultant that requested your imaging first. Assessment: 74 y.o. female with PMHx notable for Afib (taking ASA, previously on apixaban-stopped taking after IPH in April 2024), CHRISTOPHER, HLD, BMI of 36, prior IPH 04/2024 who presented to hospital 09/16/24 for placement of Watchman with cardiology. She developed headaches and nausea post op and CT scan noted large R phhgwrii-skzghze-ojmgmahrd IPH. 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 today for watchman procedure subsequently developing a [...] and therapy goals Anticipated Discharge Disposition (OT): penitentiary facility Equipment Recommendations: Equipment Needs Upon Discharge [...] 2-3 times/wk Total Minutes, Occupational Therapy: 36 ([id number]) Diana Lucas OTR/L They/Them Occupational Therapy Rehabilitation Department Pager # [phone] * Agustin Loving PA - 09/30/2024 12:26 [...] and prior IPH (04/2024) who presented to [facility] on 09/16/2024 for placement of Watchman with cardiology. She developed headaches and nausea post-operatively and was found to have a large R sluqeigc-krgrrts-onhpzpidx IPH, now s/p craniotomy. Patient was intubated from 09/16-09/21 with extubation complicated by stridor requiring re-intubation from 09/21-09/26 (11 days total). WOOD FLOOR LAYER has been following since 09/27 for communication [...] today Bolus Presentation(s): Tested Comments Thin liquids [place] thick liquids Honey thick liquids Pureed solids [...] significant other and participated in limited writing w/WOOD FLOOR LAYER, primarily single words. Aubree remains unable to [...] chips when she is alert and accepting. WOOD FLOOR LAYER will continue to follow for serial reassessment, [...] in ongoing cognitive-communication assessment Plan: Therapy Frequency (WOOD FLOOR LAYER Eval): 3-5 times/wk Patient is in agreement with the plan of care. Total Minutes (Speech Language Pathology): 24 Lamont Holm MS, CCC-WOOD FLOOR LAYER Speech-Language Pathology Inpatient Rehabilitation Department Pager # [phone] * Gissell Velazco MD - 09/30/2024 8:02 [...] approximately 4:20 pm began complaining of severe /10 headache, taken to CTH were an enlarged [...] 09/16/2024 5:26 PM) Result Value WORKSTATION ID [id number] Impression Interval expansion of now large right-sided [...] who have questions please contact the health healthcare consultant that requested your imaging first. Head wo Contrast (Generic) (Exam End: 09/16/2024 11:21 PM) Result Value WORKSTATION ID [id number] Impression CT head: 1. Interval craniotomy with [...] who have questions please contact the health healthcare consultant that requested your imaging first. Venogram Brain (Exam End: 09/16/2024 11:21 PM) Result Value WORKSTATION ID [id number] [address] head: 1. Interval craniotomy with [...] who have questions please contact the health healthcare consultant that requested your imaging first. Chest One View (Exam End: 09/16/2024 11:00 PM) Result Value WORKSTATION ID [id number] Impression Satisfactorily positioned enteric and endotracheal tubes. Left lower lobe atelectasis versus pneumonia. Thank you for letting us participate in the care of this patient. If you are a health care provider and have any questions regarding this report, please contact the number below. For patients who have questions please contact the health healthcare consultant that requested your imaging first. Abdomen 1 view (Generic) (Exam End: 09/16/2024 11:00 PM) Result Value WORKSTATION ID [id number] Impression Satisfactorily positioned enteric and endotracheal tubes. Left lower lobe atelectasis versus pneumonia. Thank you for letting us participate in the care of this patient. If you are a health care provider and have any questions regarding this report, please contact the number below. For patients who have questions please contact the health healthcare consultant that requested your imaging first. Head wo Contrast (Generic) (Exam End: 09/17/2024 4:51 AM) Result Value WORKSTATION ID [id number] Impression Increased size and density of dominant [...] who have questions please contact the health healthcare consultant that requested your imaging first. Chest One View (Exam End: 09/17/2024 2:13 PM) Result Value WORKSTATION ID [id number] Impression 1. No focal opacity in lung [...] who have questions please contact the health healthcare consultant that requested your imaging first. Chest One View (Exam End: 09/18/2024 8:43 AM) Result Value WORKSTATION ID [id number] Impression Tubes and lines as described. Blunting of the left costophrenic angle suggests tiny layering left effusion with associated left basilar consolidation/atelectasis Thank you for letting us participate in the care of this patient. If you are a health care provider and have any questions regarding this report, please contact the number below. For patients who have questions please contact the health healthcare consultant that requested your imaging first. Abdomen 1 view (Generic) (Exam End: 09/18/2024 12:31 PM) Result Value WORKSTATION ID [id number] Impression Dobbhoff tube tip along the greater curve of the stomach. Thank you for letting us participate in the care of this patient. If you are a health care provider and have any questions regarding this report, please contact the number below. For patients who have questions please contact the health healthcare consultant that requested your imaging first. Brain wwo Contrast (Generic) (Exam End: 09/19/2024 5:43 PM) Result Value WORKSTATION ID [id number] Impression Unchanged size of large right cerebral hemisphere ICH status post partial evacuation. Numerous small foci of decreased acute infarction both along and separate from the site of hemorrhage. These foci are present in both cerebral hemispheres and have a pattern most consistent with embolic infarction. No evidence of REELER OPERATOR malignancy Thank you for letting us participate in the care of this patient. If you are a health care provider and have any questions regarding this report, please contact the number below. For patients who have questions please contact the health healthcare consultant that requested your imaging first. Head wo Contrast (Generic) (Exam End: 09/21/2024 3:50 AM) Result Value WORKSTATION ID [id number] Impression Stable hemorrhage right temporal, parietal, right [...] who have questions please contact the health healthcare consultant that requested your imaging first. Abdomen 1 view (Generic) (Exam End: 09/21/2024 2:01 PM) Result Value WORKSTATION ID [id number] Impression Dobbhoff tube and enteric tube sidehole [...] who have questions please contact the health healthcare consultant that requested your imaging first. Chest One View (Exam End: 09/21/2024 2:01 PM) Result Value WORKSTATION ID [id number] Impression ET tube with tip projecting approximately [...] who have questions please contact the health healthcare consultant that requested your imaging first. Head wo Contrast (Generic) (Exam End: 09/22/2024 4:02 AM) Result Value WORKSTATION ID [id number] Impression Stable head CT status post removal of subcutaneous drain. No new or enlarging hemorrhage. Stable pattern of mass effect Thank you for letting us participate in the care of this patient. If you are a health care provider and have any questions regarding this report, please contact the number below. For patients who have questions please contact the health healthcare consultant that requested your imaging first. Angiogram Chest for Pulmonary Embolus w Contrast (Exam End: 09/26/2024 1:37 PM) Result Value WORKSTATION ID [id number] Impression 1. No pulmonary embolism. 2. Pulmonary [...] who have questions please contact the health healthcare consultant that requested your imaging first. Head wo Contrast (Generic) (Exam End: 09/26/2024 1:37 PM) Result Value WORKSTATION ID [id number] Impression 1. Stable right-sided parenchymal and subdural [...] who have questions please contact the health healthcare consultant that requested your imaging first. Abdomen & Pelvis w Contrast (Exam End: 09/26/2024 1:37 PM) Result Value WORKSTATION ID [id number] Impression 1. No pulmonary embolism. 2. Pulmonary [...] who have questions please contact the health healthcare consultant that requested your imaging first. Chest One View (Exam End: 09/28/2024 4:06 AM) Result Value WORKSTATION ID [id number] Impression 1. Limited examination. 2. Interval removal [...] who have questions please contact the health healthcare consultant that requested your imaging first. Chest One View (Exam End: 09/28/2024 7:58 PM) Result Value WORKSTATION ID [id number] Impression 1. Slightly increased opacity in the [...] who have questions please contact the health healthcare consultant that requested your imaging first. Chest One View (Exam End: 09/29/2024 1:13 PM) Result Value WORKSTATION ID [id number] Impression 1. Limited examination. 2. Stable position [...] who have questions please contact the health healthcare consultant that requested your imaging first. Assessment and [...] through clipboard. Alteplase: IV Thrombolytics decision time: 5 Was IV Thrombolytics given?: No # R IPH -Admit to neurology, NSCU level of care -Neuro check & vitals Q2hrs / Q2hrs -Permissive HTN, treat SBP >220 with prn labetalol, enalaprilat -Check CBC, BMP, LFT, lipid profile, HbA1c, Mg, Phos, UA -TTE -12 lead EKG -Telemetry -MRI brain wo contrast -CTA head & neck -PT/OT/WOOD FLOOR LAYER -Neurosurgery consulted # Leukocytosis # Pneumonia - [...] Yes Jung Yun MD Vascular Neurology Pager [phone] Neurology Attending Attestation I evaluated the patient [...] documented. Gissell Velazco MD Vascular Neurology Standard [facility] Swallow Screen: This screen is to be [...] diet as medical provider deems appropriate. Consider WOOD FLOOR LAYER consult for full evaluation and diet recommendations. [...] and prior IPH (04/2024) who presented to [facility] on 09/16/2024 for placement of Watchman with cardiology. She developed headaches and nausea post-operatively and was found to have a large R hgfemyuq-ahssenc-aivpejejm IPH, now s/p craniotomy. Patient was intubated from 09/16-09/21 with extubation complicated by stridor requiring re-intubation from 09/21-09/26 (11 days total). WOOD FLOOR LAYER has been following since 09/27 for communication [...] today Bolus Presentation(s): Tested Comments Thin liquids [place] thick liquids Honey thick liquids Pureed solids [...] (patient reports cough) with approximately 50% of Micronesian ice trials Pt complaint of food getting [...] safe swallowing strategies. ONGOING Plan: Therapy Frequency (WOOD FLOOR LAYER Eval): 3-5 times/wk Patient is in agreement with the plan of care. Total Minutes (Speech Language Pathology): 40 Areli Hathaway MS, CCC-WOOD FLOOR LAYER Speech-Language Pathologist Inpatient Rehabilitation Pager # [phone] * Chino Washburn MD - 09/29/2024 2:49 [...] reviewed Procedures - reveiwed External Records in EPIC - reviewed. Impression & Recommendations: 74 year-old [...] ID team will sign off. Please page [phone] with any questions. 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 today for watchman procedure subsequently developing a large R ICH requiring intubation for airway protection, heparin reversal with protamine and emergent OR for craniotomy and hematoma evacuation. Interval History No data found. Reason for Assessment: Follow-up, Tube Feeding Nutrition Recommendations: NPO per WOOD FLOOR LAYER 09/28 Resume TF and limit holds as [...] steps: feeds not at goal, need for fpc nutrition planif unable to advance diet Current [...] encounter: 85.4 kg (188 lb 4.4 oz). [place] Body Weight (IBW) (kg): 45.45 Wt Readings [...] Vitals for the past 168 hrs: Weight 11/05/24 0600 85.4 kg (188 lb 4.4 oz) [...] interview: 09/29: TF Dc'd 09/28 @ 1835hr. WOOD FLOOR LAYER continues to recommend NPO, need for alternate [...] Not performed Malnutrition Diagnosis: Not identified (Mari main al, JPEN J Parenteral Enteral [...] brain wo contrast -CTA head & neck -PT/OT/WOOD FLOOR LAYER -Neurosurgery consulted # Leukocytosis # Pneumonia - repeat CXR 09/29 - on Zosyn (09/24 - 09/29) - CBC - ID consult - C. Diff negative # Prophylaxis -Lovenox 40 mg QHS -RBOs -SCDs # Supportive Care -Pantoprazole 40 mg IV -NPO -Tylenol PRN -Up with assistance # FULL code Stroke Navigator Completed: Yes Jung Yun MD Vascular Neurology Pager [phone] Neurology Attending Attestation I evaluated the patient [...] documented. Gissell Velazco MD Vascular Neurology Standard [facility] Swallow Screen: This screen is to be [...] diet as medical provider deems appropriate. Consider WOOD FLOOR LAYER consult for full evaluation and diet recommendations. If NO to any of the responses, stop immediately, keep patient NPO and notify physician. * Rob Guzman MD - 09/29/2024 7:29 AM EST [facility] NEUROSURGERY PROGRESS NOTE ID: [...] - stacey LABS: Recent Labs 09/29/24 0109 09/28/2435709/27/24137 WBC 26.40* 35.37* 39.03* HGB 10.0* 11.0* 12.5 PLATELET 397* 443* 510* Recent Labs 09/28/2435709/27/24 1646 09/27/24137 NA 138 -- 139 K 4.0 4.0 3.8 CL 106 -- 103 CO2 22 -- 25 BUN 21* -- 17 CREATININE 0.49* -- 0.51* No results for input(s): PT, INR in the last 72 hours. IMAGING: Results for orders placed or performed during the hospital encounter of 09/16/24 CT Head wo Contrast (Generic) (Exam End: 09/16/2024 5:26 PM) Result Value WORKSTATION ID [id number] Impression Interval expansion of now large right-sided [...] who have questions please contact the health healthcare consultant that requested your imaging first. Head wo Contrast (Generic) (Exam End: 09/16/2024 11:21 PM) Result Value WORKSTATION ID [id number] Impression CT head: 1. Interval craniotomy with [...] who have questions please contact the health healthcare consultant that requested your imaging first. Venogram Brain (Exam End: 09/16/2024 11:21 PM) Result Value WORKSTATION ID [id number] Impression CT head: 1. Interval craniotomy with [...] who have questions please contact the health healthcare consultant that requested your imaging first. Chest One View (Exam End: 09/16/2024 11:00 PM) Result Value WORKSTATION ID [id number] Impression Satisfactorily positioned enteric and endotracheal tubes. Left lower lobe atelectasis versus pneumonia. Thank you for letting us participate in the care of this patient. If you are a health care provider and have any questions regarding this report, please contact the number below. For patients who have questions please contact the health healthcare consultant that requested your imaging first. Abdomen 1 view (Generic) (Exam End: 09/16/2024 11:00 PM) Result Value WORKSTATION ID [id number] Impression Satisfactorily positioned enteric and endotracheal tubes. Left lower lobe atelectasis versus pneumonia. Thank you for letting us participate in the care of this patient. If you are a health care provider and have any questions regarding this report, please contact the number below. For patients who have questions please contact the health healthcare consultant that requested your imaging first. Head wo Contrast (Generic) (Exam End: 09/17/2024 4:51 AM) Result Value WORKSTATION ID [id number] Impression Increased size and density of dominant [...] who have questions please contact the health healthcare consultant that requested your imaging first. Chest One View (Exam End: 09/17/2024 2:13 PM) Result Value WORKSTATION ID [id number] Impression 1. No focal opacity in lung [...] who have questions please contact the health healthcare consultant that requested your imaging first. Chest One View (Exam End: 09/18/2024 8:43 AM) Result Value WORKSTATION ID [id number] Impression Tubes and lines as described. Blunting of the left costophrenic angle suggests tiny layering left effusion with associated left basilar consolidation/atelectasis Thank you for letting us participate in the care of this patient. If you are a health care provider and have any questions regarding this report, please contact the number below. For patients who have questions please contact the health healthcare consultant that requested your imaging first. Abdomen 1 view (Generic) (Exam End: 09/18/2024 12:31 PM) Result Value WORKSTATION ID [id number] Impression Dobbhoff tube tip along the greater curve of the stomach. Thank you for letting us participate in the care of this patient. If you are a health care provider and have any questions regarding this report, please contact the number below. For patients who have questions please contact the health healthcare consultant that requested your imaging first. Brain wwo Contrast (Generic) (Exam End: 09/19/2024 5:43 PM) Result Value WORKSTATION ID [id number] Impression Unchanged size of large right cerebral hemisphere ICH status post partial evacuation. Numerous small foci of decreased acute infarction both along and separate from the site of hemorrhage. These foci are present in both cerebral hemispheres and have a pattern most consistent with embolic infarction. No evidence of REELER OPERATOR malignancy Thank you for letting us participate in the care of this patient. If you are a health care provider and have any questions regarding this report, please contact the number below. For patients who have questions please contact the health healthcare consultant that requested your imaging first. Head wo Contrast (Generic) (Exam End: 09/21/2024 3:50 AM) Result Value WORKSTATION ID [id number] Impression Stable hemorrhage right temporal, parietal, right [...] who have questions please contact the health healthcare consultant that requested your imaging first. Abdomen 1 view (Generic) (Exam End: 09/21/2024 2:01 PM) Result Value WORKSTATION ID [id number] Impression Dobbhoff tube and enteric tube sidehole [...] who have questions please contact the health healthcare consultant that requested your imaging first. Chest One View (Exam End: 09/21/2024 2:01 PM) Result Value WORKSTATION ID [id number] Impression ET tube with tip projecting approximately [...] who have questions please contact the health healthcare consultant that requested your imaging first. Head wo Contrast (Generic) (Exam End: 09/22/2024 4:02 AM) Result Value WORKSTATION ID [id number] Impression Stable head CT status post removal of subcutaneous drain. No new or enlarging hemorrhage. Stable pattern of mass effect Thank you for letting us participate in the care of this patient. If you are a health care provider and have any questions regarding this report, please contact the number below. For patients who have questions please contact the health healthcare consultant that requested your imaging first. Angiogram Chest for Pulmonary Embolus w Contrast (Exam End: 09/26/2024 1:37 PM) Result Value WORKSTATION ID [id number] Impression 1. No pulmonary embolism. 2. Pulmonary [...] who have questions please contact the health healthcare consultant that requested your imaging first. Head wo Contrast (Generic) (Exam End: 09/26/2024 1:37 PM) Result Value WORKSTATION ID [id number] Impression 1. Stable right-sided parenchymal and subdural [...] who have questions please contact the health healthcare consultant that requested your imaging first. Abdomen & Pelvis w Contrast (Exam End: 09/26/2024 1:37 PM) Result Value WORKSTATION ID [id number] Impression 1. No pulmonary embolism. 2. Pulmonary [...] who have questions please contact the health healthcare consultant that requested your imaging first. Chest One View (Exam End: 09/28/2024 4:06 AM) Result Value WORKSTATION ID [id number] Impression 1. Limited examination. 2. Interval removal [...] who have questions please contact the health healthcare consultant that requested your imaging first. Chest One View (Exam End: 09/28/2024 7:58 PM) Result Value WORKSTATION ID [id number] Impression 1. Slightly increased opacity in the [...] who have questions please contact the health healthcare consultant that requested your imaging first. Assessment: 74 y.o. female with PMHx notable for Afib (taking ASA, previously on apixaban-stopped taking after IPH in April 2024), CHRISTOPHER, HLD, BMI of 36, prior IPH 04/2024 who presented to hospital 09/16/24 for placement of Watchman with cardiology. She developed headaches and nausea post op and CT scan noted large R sjfajzvu-wtywdci-nulaepzbp IPH. Now s/p R craniotomy for IPH [...] -SBP 90-160 -DVT ppx with SCDs, SQH -WOOD FLOOR LAYER for diet advancement -Na goal eunatremia -Rest of care per primary For questions please call NSAllovue pager [phone] Rob Guzman MD Clinical Documentation Improvement: Active Hospital Problems Diagnosis Presence of Watchman left atrial appendage closure device S/P craniotomy Resolved Hospital Problems No resolved problems to display. * Kymberly Baptiste, PT - 09/28/2024 1:44 PM EST Physical Therapy Note Treatment Number PT: 3 Patient profile: Luceor Bruno ( ) is a 74 y.o. 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 [place] watchman procedure subsequently developing a large [...] in all aspects. 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 Assessment: Lucero Florence Damion was seen today for physical therapy treatment [...] the current findings, Anticipated Discharge Disposition (PT): [facility] when medically ready for hospital discharge. [...] plan as stated. Time IN / OUT: 8734-6448 Total Minutes, Physical Therapy: 34 Billing Code: TEF1 Kymberly Baptiste PT, DPT, NCS Pager: [phone] Physical Therapy Inpatient Rehabilitation Department * Angel [...] 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 09/16 for watchman procedure subsequently developing a [...] degrees of oral suctioning but improved thereafter. WOOD FLOOR LAYER evaluations ongoing, but given degree of dysphagia, [...] 09/25 0709/26 0709/26 0709/27 0709/27 0709/28 0709/29 0700 P.O. 0 0 0 [...] difficulty 09/18/24599 Medial Patency/Maintenance flushed without difficulty 09/18/24 06 [...] Phlebitis 0-->no symptoms 09/18/24599 Infiltration 0-->no symptoms 10/26/24 0600 Site Signs/Symptoms no swelling;no warmth;no redness 09/18/24 [...] to upper leg with adhesive device 09/18/24 020 Maintenance Closed system maintained;Urine flow is unobstructed;Collection [...] Airway Tube Secured At (cm) 22 09/18/24 0841 Cuff Pressure (cm H2O/mLH2O) 30 09/18/24 08 Tube Securement Date 09/16/24 09/17/24 1458 Bite Block none 09/18/24 0841 Manual Resuscitator at bedside Yes 09/18/24840 Arterial [...] POC 163 65 - 199 mg/dL Imaging: [facility] 09/16 Interval expansion of now large [...] QTC Calculated (Bezet) 446 ms Calculated P [place] 36 degrees Calculated R [place] -17 degrees Calculated T [place] 28 degrees INTERPRETATION Normal sinus rhythm Normal [...] DHT in place for enteral nutrition -ongoing WOOD FLOOR LAYER evaluation: currently NPO -anticipate PEG placement - [...] Status: Attempt Cardiopulmonary Resuscitation - [facility] 09/28/2024 NCCU pager #[phone] * Dheeraj Moreira - 09/28/2024 1:19 PM EST Hvac Installation Technician Encounter Note Patient Name: Lucero Bruno : [id number] MR#: [id number] Admit Date: 09/16/2024 10:06 AM Hospital Day 12 days Narrative:Visited to introduce and assess acceptance of Hvac Installation Technician services. Assessment:Family coping positively with stresses of illness/hospitalization at this time. I met with patient two friends in hallway and patient has family care and support. Family is taking one day at time and shared that she is getting better slowly. Intervention and Outcome:Provided emotional, spiritual support and listening presence. Hvac Installation Technician services accepted. Conversation to build trusting relationship. Provided pastoral presence. Provided spiritual guidance. Follow-up: yes Time in Direct Care:04 Mins Dheeraj Moreira 09/28/2024 * Areli Hathaway, WOOD FLOOR LAYER - 09/28/2024 12:58 PM EST Speech Therapy Note Patient Profile: Lucero Bruno is a 74 y.o. female with PMHx of A-fib, CHRISTOPHER, HLD, and prior IPH (04/2024) who presented to [facility] on 09/16/2024 for placement of Watchman with cardiology. She developed headaches and nausea post-operatively and was found to have a large R difcrmlb-xlvpedi-vrjwevjpm IPH, now s/p craniotomy. Patient was intubated from 09/16-09/21 with extubation complicated by stridor requiring re-intubation from 09/21-09/26 (11 days total). WOOD FLOOR LAYER has been following since 09/27 for communication [...] Comments Thin liquids X Water via swab [place] thick liquids Honey thick liquids Pureed solids Dysphagia soft Mechanical soft Regular solids Pills X Ice chips, Micronesian ice Other Oral Preparatory Phase Mastication: N/A [...] throat clear: Throat clearing with 25% of Micronesian ice trials, none with single ice chips [...] of ice chips, water via swabs, and Micronesian ice. She benefited from verbal cues for physical orientationdue to preexisting visual field cuts and/or inattention. Aubree's swallow was characterized by minimal lingual movements with eventual swallow initiation following a prolonged period of oral holding. She presented with inconsistent signs of aspiration (coughing) with Micronesian ice and none with small amounts of [...] safe swallowing strategies. NEW Plan: Therapy Frequency (WOOD FLOOR LAYER Eval): 3-5 times/wk Patient is in agreement with the plan of care. Total Minutes (Speech Language Pathology): 40 Areli Hathaway MS, CCC-WOOD FLOOR LAYER Speech-Language Pathologist Inpatient Rehabilitation Pager # [phone] * Diana Lucas, OT - 09/28/2024 11:50 AM EST Occupational Therapy Treatment Note Treatment Number OT: 2 Patient Dx:Lucero Bruno is a 74 y.o. female admitted on 09/16/2024. 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 today for watchman procedure subsequently developing a [...] of cane. 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 Pt has a 1/2 acre of flower [...] and therapy goals Anticipated Discharge Disposition (OT): penitentiary facility Equipment Recommendations: Equipment Needs Upon Discharge [...] 2-3 times/wk Total Minutes, Occupational Therapy: 34 ([id number]) Diana Lucas OTR/L They/Them Occupational Therapy Rehabilitation Department Pager # [phone] * Areli Hathaway WOOD FLOOR LAYER - 09/28/2024 11:00 AM EST Speech Pathology Contact Note Chart reviewed. Attempted to see patient for dysphagia management; however, shortly into our session she became tachycardic and RN requested we defer. We will follow up on next treatment date as schedule allows. Please secure chat with questions, thanks! Areli Hathaway MS, CCC-WOOD FLOOR LAYER Speech-Language Pathologist Inpatient Rehabilitation Pager # [phone] * Librado Patel MD - 09/28/2024 9:59 [...] 0 (mL) 09/27/24799 Stool Output (mL) 50 09/27/24 08 Net Rectal Tube Output (mL) 50 09/27/24799 [...] serosanguineous 10/29/24 0730 Drainage Amount none 09/26/24 08 Dressing open to air 09/27/24 0800 Output (mL) 0 09/26/24 0800 Labs: No results found for: PHART, PO2ART, BQS3LSF Recent Labs 09/28/24 0358 WBC 35.37* RBC [...] con't suctioning prn FEN/Renal: - NPO per WOOD FLOOR LAYER - TF GI: diarrhea/con't rectal tube ID: [...] Guzman MD - 09/28/2024 7:17 AM EST [facility] NEUROSURGERY PROGRESS NOTE ID: [...] 09/16/2024 5:26 PM) Result Value WORKSTATION ID [id number] Impression Interval expansion of now large right-sided [...] who have questions please contact the health healthcare consultant that requested your imaging first. Head wo Contrast (Generic) (Exam End: 09/16/2024 11:21 PM) Result Value WORKSTATION ID [id number] Impression CT head: 1. Interval craniotomy with [...] who have questions please contact the health healthcare consultant that requested your imaging first. Venogram Brain (Exam End: 09/16/2024 11:21 PM) Result Value WORKSTATION ID [id number] Impression CT head: 1. Interval craniotomy with [...] who have questions please contact the health healthcare consultant that requested your imaging first. Chest One View (Exam End: 09/16/2024 11:00 PM) Result Value WORKSTATION ID [id number] Impression Satisfactorily positioned enteric and endotracheal tubes. Left lower lobe atelectasis versus pneumonia. Thank you for letting us participate in the care of this patient. If you are a health care provider and have any questions regarding this report, please contact the number below. For patients who have questions please contact the health healthcare consultant that requested your imaging first. Abdomen 1 view (Generic) (Exam End: 09/16/2024 11:00 PM) Result Value WORKSTATION ID [id number] Impression Satisfactorily positioned enteric and endotracheal tubes. Left lower lobe atelectasis versus pneumonia. Thank you for letting us participate in the care of this patient. If you are a health care provider and have any questions regarding this report, please contact the number below. For patients who have questions please contact the health healthcare consultant that requested your imaging first. Head wo Contrast (Generic) (Exam End: 09/17/2024 4:51 AM) Result Value WORKSTATION ID [id number] Impression Increased size and density of dominant [...] who have questions please contact the health healthcare consultant that requested your imaging first. Chest One View (Exam End: 09/17/2024 2:13 PM) Result Value WORKSTATION ID [id number] Impression 1. No focal opacity in lung [...] who have questions please contact the health healthcare consultant that requested your imaging first. Chest One View (Exam End: 09/18/2024 8:43 AM) Result Value WORKSTATION ID [id number] Impression Tubes and lines as described. Blunting of the left costophrenic angle suggests tiny layering left effusion with associated left basilar consolidation/atelectasis Thank you for letting us participate in the care of this patient. If you are a health care provider and have any questions regarding this report, please contact the number below. For patients who have questions please contact the health healthcare consultant that requested your imaging first. Abdomen 1 view (Generic) (Exam End: 09/18/2024 12:31 PM) Result Value WORKSTATION ID [id number] Impression Dobbhoff tube tip along the greater curve of the stomach. Thank you for letting us participate in the care of this patient. If you are a health care provider and have any questions regarding this report, please contact the number below. For patients who have questions please contact the health healthcare consultant that requested your imaging first. Brain wwo Contrast (Generic) (Exam End: 09/19/2024 5:43 PM) Result Value WORKSTATION ID [id number] Impression Unchanged size of large right cerebral hemisphere ICH status post partial evacuation. Numerous small foci of decreased acute infarction both along and separate from the site of hemorrhage. These foci are present in both cerebral hemispheres and have a pattern most consistent with embolic infarction. No evidence of REELER OPERATOR malignancy Thank you for letting us participate in the care of this patient. If you are a health care provider and have any questions regarding this report, please contact the number below. For patients who have questions please contact the health healthcare consultant that requested your imaging first. Head wo Contrast (Generic) (Exam End: 09/21/2024 3:50 AM) Result Value WORKSTATION ID [id number] Impression Stable hemorrhage right temporal, parietal, right [...] who have questions please contact the health healthcare consultant that requested your imaging first. Abdomen 1 view (Generic) (Exam End: 09/21/2024 2:01 PM) Result Value WORKSTATION ID [id number] Impression Dobbhoff tube and enteric tube sidehole [...] who have questions please contact the health healthcare consultant that requested your imaging first. Chest One View (Exam End: 09/21/2024 2:01 PM) Result Value WORKSTATION ID [id number] Impression ET tube with tip projecting approximately [...] who have questions please contact the health healthcare consultant that requested your imaging first. Head wo Contrast (Generic) (Exam End: 09/22/2024 4:02 AM) Result Value WORKSTATION ID [id number] Impression Stable head CT status post removal of subcutaneous drain. No new or enlarging hemorrhage. Stable pattern of mass effect Thank you for letting us participate in the care of this patient. If you are a health care provider and have any questions regarding this report, please contact the number below. For patients who have questions please contact the health healthcare consultant that requested your imaging first. Angiogram Chest for Pulmonary Embolus w Contrast (Exam End: 09/26/2024 1:37 PM) Result Value WORKSTATION ID [id number] Impression 1. No pulmonary embolism. 2. Pulmonary [...] who have questions please contact the health healthcare consultant that requested your imaging first. Head wo Contrast (Generic) (Exam End: 09/26/2024 1:37 PM) Result Value WORKSTATION ID [id number] Impression 1. Stable right-sided parenchymal and subdural [...] who have questions please contact the health healthcare consultant that requested your imaging first. Abdomen & Pelvis w Contrast (Exam End: 09/26/2024 1:37 PM) Result Value WORKSTATION ID [id number] Impression 1. No pulmonary embolism. 2. Pulmonary [...] who have questions please contact the health healthcare consultant that requested your imaging first. Chest One View (Exam End: 09/28/2024 4:06 AM) Result Value WORKSTATION ID [id number] Impression 1. Limited examination. 2. Interval removal [...] who have questions please contact the health healthcare consultant that requested your imaging first. Assessment: 74 y.o. female with PMHx notable for Afib (taking ASA, previously on apixaban-stopped taking after IPH in April 2024), CHRISTOPHER, HLD, BMI of 36, prior IPH 04/2024 who presented to hospital 09/16/24 for placement of Watchman with cardiology. She developed headaches and nausea post op and CT scan noted large R zogqqtpk-sobpjjc-vxeuqixim IPH. Now s/p R craniotomy for IPH [...] ppx with SCDs, SQH -Hold other antiplatelets/anticoagulants -WOOD FLOOR LAYER for diet advancement -Na goal eunatremia -Rest of care per primary For questions please call NSGY pager [phone] Rob Guzman MD Clinical Documentation Improvement: Active [...] 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 today for watchman procedure subsequently developing a [...] was able to discuss plan with provider [facility] [id number] . Current Nutrition Regimen: Active Orders Diet [...] potassium chloride ER OR potassium chloride ER, bucbwhh50% oral geL OR dextrose OR glucagon, bisacodyL, bacitracin zinc-polymyxin B, gelatin compressed, thrombin (Bovine) Anthropometrics: Admit Weight: 88.45 kg Estimated body mass index is 38.41 kg/m?? as calculated from the following: Height as of 09/21/24: 152.4 cm (5'). Weight as of this encounter: 89.2 kg (196 lb 10.4 oz). [place] Body Weight (IBW) (kg): 45.45 Wt Readings [...] Exam: Not performed Malnutrition Diagnosis: Not identified (TRACE López J Parenteral Enteral Nutr. 2012 March; 36(3): 273-83) Nutrition to continue to follow up while inpatient Thank you, Diana Cárdenas RDN, LD, [facility] Clinical Nutrition * Danielle Cosby, [facility] - 09/27/2024 4:50 PM EST 09/27/24 1600 [...] Guzman MD - 09/27/2024 2:08 PM EST [facility] NEUROSURGERY PROGRESS NOTE ID: [...] 09/16/2024 5:26 PM) Result Value WORKSTATION ID [id number] Impression Interval expansion of now large right-sided [...] who have questions please contact the health healthcare consultant that requested your imaging first. Head wo Contrast (Generic) (Exam End: 09/16/2024 11:21 PM) Result Value WORKSTATION ID [id number] Impression CT head: 1. Interval craniotomy with [...] who have questions please contact the health healthcare consultant that requested your imaging first. Venogram Brain (Exam End: 09/16/2024 11:21 PM) Result Value WORKSTATION ID [id number] Impression CT head: 1. Interval craniotomy with [...] who have questions please contact the health healthcare consultant that requested your imaging first. Chest One View (Exam End: 09/16/2024 11:00 PM) Result Value WORKSTATION ID [id number] Impression Satisfactorily positioned enteric and endotracheal tubes. Left lower lobe atelectasis versus pneumonia. Thank you for letting us participate in the care of this patient. If you are a health care provider and have any questions regarding this report, please contact the number below. For patients who have questions please contact the health healthcare consultant that requested your imaging first. Abdomen 1 view (Generic) (Exam End: 09/16/2024 11:00 PM) Result Value WORKSTATION ID [id number] Impression Satisfactorily positioned enteric and endotracheal tubes. Left lower lobe atelectasis versus pneumonia. Thank you for letting us participate in the care of this patient. If you are a health care provider and have any questions regarding this report, please contact the number below. For patients who have questions please contact the health healthcare consultant that requested your imaging first. Head wo Contrast (Generic) (Exam End: 09/17/2024 4:51 AM) Result Value WORKSTATION ID [id number] Impression Increased size and density of dominant [...] who have questions please contact the health healthcare consultant that requested your imaging first. Chest One View (Exam End: 09/17/2024 2:13 PM) Result Value WORKSTATION ID [id number] Impression 1. No focal opacity in lung [...] who have questions please contact the health healthcare consultant that requested your imaging first. Chest One View (Exam End: 09/18/2024 8:43 AM) Result Value WORKSTATION ID [id number] Impression Tubes and lines as described. Blunting of the left costophrenic angle suggests tiny layering left effusion with associated left basilar consolidation/atelectasis Thank you for letting us participate in the care of this patient. If you are a health care provider and have any questions regarding this report, please contact the number below. For patients who have questions please contact the health healthcare consultant that requested your imaging first. Abdomen 1 view (Generic) (Exam End: 09/18/2024 12:31 PM) Result Value WORKSTATION ID [id number] Impression Dobbhoff tube tip along the greater curve of the stomach. Thank you for letting us participate in the care of this patient. If you are a health care provider and have any questions regarding this report, please contact the number below. For patients who have questions please contact the health healthcare consultant that requested your imaging first. Brain wwo Contrast (Generic) (Exam End: 09/19/2024 5:43 PM) Result Value WORKSTATION ID [id number] Impression Unchanged size of large right cerebral hemisphere ICH status post partial evacuation. Numerous small foci of decreased acute infarction both along and separate from the site of hemorrhage. These foci are present in both cerebral hemispheres and have a pattern most consistent with embolic infarction. No evidence of REELER OPERATOR malignancy Thank you for letting us participate in the care of this patient. If you are a health care provider and have any questions regarding this report, please contact the number below. For patients who have questions please contact the health healthcare consultant that requested your imaging first. Head wo Contrast (Generic) (Exam End: 09/21/2024 3:50 AM) Result Value WORKSTATION ID [id number] Impression Stable hemorrhage right temporal, parietal, right [...] who have questions please contact the health healthcare consultant that requested your imaging first. Abdomen 1 view (Generic) (Exam End: 09/21/2024 2:01 PM) Result Value WORKSTATION ID [id number] Impression Dobbhoff tube and enteric tube sidehole and tip is projecting over the expected location of the stomach. I have personally reviewed the image(s) and the resident's interpretation and agree with the findings, Sharddha Cox MD at 09/21/2024 3:40 PM Thank you for letting us participate in the care of this patient. If you are a health care provider and have any questions regarding this report, please contact the number below. For patients who have questions please contact the health healthcare consultant that requested your imaging first. Chest One View (Exam End: 09/21/2024 2:01 PM) Result Value WORKSTATION ID [id number] Impression ET tube with tip projecting approximately [...] who have questions please contact the health healthcare consultant that requested your imaging first. Head wo Contrast (Generic) (Exam End: 09/22/2024 4:02 AM) Result Value WORKSTATION ID [id number] Impression Stable head CT status post removal of subcutaneous drain. No new or enlarging hemorrhage. Stable pattern of mass effect Thank you for letting us participate in the care of this patient. If you are a health care provider and have any questions regarding this report, please contact the number below. For patients who have questions please contact the health healthcare consultant that requested your imaging first. Angiogram Chest for Pulmonary Embolus w Contrast (Exam End: 09/26/2024 1:37 PM) Result Value WORKSTATION ID [id number] Impression 1. No pulmonary embolism. 2. Pulmonary [...] who have questions please contact the health healthcare consultant that requested your imaging first. Head wo Contrast (Generic) (Exam End: 09/26/2024 1:37 PM) Result Value WORKSTATION ID [id number] Impression 1. Stable right-sided parenchymal and subdural [...] who have questions please contact the health healthcare consultant that requested your imaging first. Abdomen & Pelvis w Contrast (Exam End: 09/26/2024 1:37 PM) Result Value WORKSTATION ID [id number] Impression 1. No pulmonary embolism. 2. Pulmonary [...] who have questions please contact the health healthcare consultant that requested your imaging first. Assessment: 74 y.o. female with PMHx notable for Afib (taking ASA, previously on apixaban-stopped taking after IPH in April 2024), CHRISTOPHER, HLD, BMI of 36, prior IPH 04/2024 who presented to hospital 09/16/24 for placement of Watchman with cardiology. She developed headaches and nausea post op and CT scan noted large R nmvnpbit-bczynae-kpdwbfwuk IPH. 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 [place] watchman procedure subsequently developing a large [...] in all aspects. 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 [...] plan as stated. Time IN / OUT: 8640-1424 Total Minutes, Physical Therapy: 22 Billing Code: TEF1 Kymberly Baptiste PT, DPT, NCS Pager: [phone] Physical Therapy Inpatient Rehabilitation Department * Ihsan Winston, [facility] - 09/26/2024 6:14 PM EST Illness Severity [...] EST ICU PROGRESS NOTE DOA: 09/16/2024 Room: [address] [place] [address] Length of Stay: 10 ICU Length of Stay 9d 11h Lucero Bruno ( ) is a 74 y.o. 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 today for watchman procedure subsequently developing a [...] interventions and documentation on the unit. Mariola aClixto MD 09/26/2024 8:56 AM * Brinane Kinney MD - 09/26/2024 7:40 AM EST [facility] NEUROSURGERY PROGRESS NOTE ID: [...] 09/16/2024 5:26 PM) Result Value WORKSTATION ID [id number] Impression Interval expansion of now large right-sided [...] who have questions please contact the health healthcare consultant that requested your imaging first. Head wo Contrast (Generic) (Exam End: 09/16/2024 11:21 PM) Result Value WORKSTATION ID [id number] Impression CT head: 1. Interval craniotomy with [...] who have questions please contact the health healthcare consultant that requested your imaging first. Venogram Brain (Exam End: 09/16/2024 11:21 PM) Result Value WORKSTATION ID [id number] Impression CT head: 1. Interval craniotomy with [...] who have questions please contact the health healthcare consultant that requested your imaging first. Chest One View (Exam End: 09/16/2024 11:00 PM) Result Value WORKSTATION ID [id number] Impression Satisfactorily positioned enteric and endotracheal tubes. Left lower lobe atelectasis versus pneumonia. Thank you for letting us participate in the care of this patient. If you are a health care provider and have any questions regarding this report, please contact the number below. For patients who have questions please contact the health healthcare consultant that requested your imaging first. Abdomen 1 view (Generic) (Exam End: 09/16/2024 11:00 PM) Result Value WORKSTATION ID [id number] Impression Satisfactorily positioned enteric and endotracheal tubes. Left lower lobe atelectasis versus pneumonia. Thank you for letting us participate in the care of this patient. If you are a health care provider and have any questions regarding this report, please contact the number below. For patients who have questions please contact the health healthcare consultant that requested your imaging first. Head wo Contrast (Generic) (Exam End: 09/17/2024 4:51 AM) Result Value WORKSTATION ID [id number] Impression Increased size and density of dominant [...] who have questions please contact the health healthcare consultant that requested your imaging first. Chest One View (Exam End: 09/17/2024 2:13 PM) Result Value WORKSTATION ID [id number] Impression 1. No focal opacity in lung [...] who have questions please contact the health healthcare consultant that requested your imaging first. Chest One View (Exam End: 09/18/2024 8:43 AM) Result Value WORKSTATION ID [id number] Impression Tubes and lines as described. Blunting of the left costophrenic angle suggests tiny layering left effusion with associated left basilar consolidation/atelectasis Thank you for letting us participate in the care of this patient. If you are a health care provider and have any questions regarding this report, please contact the number below. For patients who have questions please contact the health healthcare consultant that requested your imaging first. Abdomen 1 view (Generic) (Exam End: 09/18/2024 12:31 PM) Result Value WORKSTATION ID [id number] Impression Dobbhoff tube tip along the greater curve of the stomach. Thank you for letting us participate in the care of this patient. If you are a health care provider and have any questions regarding this report, please contact the number below. For patients who have questions please contact the health healthcare consultant that requested your imaging first. Brain wwo Contrast (Generic) (Exam End: 09/19/2024 5:43 PM) Result Value WORKSTATION ID [id number] Impression Unchanged size of large right cerebral hemisphere ICH status post partial evacuation. Numerous small foci of decreased acute infarction both along and separate from the site of hemorrhage. These foci are present in both cerebral hemispheres and have a pattern most consistent with embolic infarction. No evidence of REELER OPERATOR malignancy Thank you for letting us participate in the care of this patient. If you are a health care provider and have any questions regarding this report, please contact the number below. For patients who have questions please contact the health healthcare consultant that requested your imaging first. Head wo Contrast (Generic) (Exam End: 09/21/2024 3:50 AM) Result Value WORKSTATION ID [id number] Impression Stable hemorrhage right temporal, parietal, right [...] who have questions please contact the health healthcare consultant that requested your imaging first. Abdomen 1 view (Generic) (Exam End: 09/21/2024 2:01 PM) Result Value WORKSTATION ID [id number] Impression Dobbhoff tube and enteric tube sidehole [...] who have questions please contact the health healthcare consultant that requested your imaging first. Chest One View (Exam End: 09/21/2024 2:01 PM) Result Value WORKSTATION ID [id number] Impression ET tube with tip projecting approximately [...] who have questions please contact the health healthcare consultant that requested your imaging first. Head wo Contrast (Generic) (Exam End: 09/22/2024 4:02 AM) Result Value WORKSTATION ID [id number] Impression Stable head CT status post removal of subcutaneous drain. No new or enlarging hemorrhage. Stable pattern of mass effect Thank you for letting us participate in the care of this patient. If you are a health care provider and have any questions regarding this report, please contact the number below. For patients who have questions please contact the health healthcare consultant that requested your imaging first. Assessment: 74 y.o. female with PMHx notable for Afib (taking ASA, previously on apixaban-stopped taking after IPH in April 2024), CHRISTOPHER, HLD, BMI of 36, prior IPH 04/2024 who presented to hospital 09/16/24 for placement of Watchman with cardiology. She developed headaches and nausea post op and CT scan noted large R iezacevi-acvkiwm-ubtiqpjgx IPH. Now s/p R craniotomy for IPH [...] primary For questions please call NS pager [phone] Brianne Kinney MD Clinical Documentation Improvement: Active [...] Kinney MD - 09/25/2024 3:30 PM EDT [facility] NEUROSURGERY PROGRESS NOTE ID: [...] 09/16/2024 5:26 PM) Result Value WORKSTATION ID [id number] Impression Interval expansion of now large right-sided [...] who have questions please contact the health healthcare consultant that requested your imaging first. Head wo Contrast (Generic) (Exam End: 09/16/2024 11:21 PM) Result Value WORKSTATION ID [id number] Impression CT head: 1. Interval craniotomy with [...] who have questions please contact the health healthcare consultant that requested your imaging first. Venogram Brain (Exam End: 09/16/2024 11:21 PM) Result Value WORKSTATION ID [id number] Impression CT head: 1. Interval craniotomy with [...] who have questions please contact the health healthcare consultant that requested your imaging first. Chest One View (Exam End: 09/16/2024 11:00 PM) Result Value WORKSTATION ID [id number] Impression Satisfactorily positioned enteric and endotracheal tubes. Left lower lobe atelectasis versus pneumonia. Thank you for letting us participate in the care of this patient. If you are a health care provider and have any questions regarding this report, please contact the number below. For patients who have questions please contact the health healthcare consultant that requested your imaging first. Abdomen 1 view (Generic) (Exam End: 09/16/2024 11:00 PM) Result Value WORKSTATION ID [id number] Impression Satisfactorily positioned enteric and endotracheal tubes. Left lower lobe atelectasis versus pneumonia. Thank you for letting us participate in the care of this patient. If you are a health care provider and have any questions regarding this report, please contact the number below. For patients who have questions please contact the health healthcare consultant that requested your imaging first. Head wo Contrast (Generic) (Exam End: 09/17/2024 4:51 AM) Result Value WORKSTATION ID [id number] Impression Increased size and density of dominant [...] who have questions please contact the health healthcare consultant that requested your imaging first. Chest One View (Exam End: 09/17/2024 2:13 PM) Result Value WORKSTATION ID [id number] Impression 1. No focal opacity in lung [...] who have questions please contact the health healthcare consultant that requested your imaging first. Chest One View (Exam End: 09/18/2024 8:43 AM) Result Value WORKSTATION ID [id number] Impression Tubes and lines as described. Blunting of the left costophrenic angle suggests tiny layering left effusion with associated left basilar consolidation/atelectasis Thank you for letting us participate in the care of this patient. If you are a health care provider and have any questions regarding this report, please contact the number below. For patients who have questions please contact the health healthcare consultant that requested your imaging first. Abdomen 1 view (Generic) (Exam End: 09/18/2024 12:31 PM) Result Value WORKSTATION ID [id number] Impression Dobbhoff tube tip along the greater curve of the stomach. Thank you for letting us participate in the care of this patient. If you are a health care provider and have any questions regarding this report, please contact the number below. For patients who have questions please contact the health healthcare consultant that requested your imaging first. Brain wwo Contrast (Generic) (Exam End: 09/19/2024 5:43 PM) Result Value WORKSTATION ID [id number] Impression Unchanged size of large right cerebral hemisphere ICH status post partial evacuation. Numerous small foci of decreased acute infarction both along and separate from the site of hemorrhage. These foci are present in both cerebral hemispheres and have a pattern most consistent with embolic infarction. No evidence of REELER OPERATOR malignancy Thank you for letting us participate in the care of this patient. If you are a health care provider and have any questions regarding this report, please contact the number below. For patients who have questions please contact the health healthcare consultant that requested your imaging first. Head wo Contrast (Generic) (Exam End: 09/21/2024 3:50 AM) Result Value WORKSTATION ID [id number] Impression Stable hemorrhage right temporal, parietal, right [...] who have questions please contact the health healthcare consultant that requested your imaging first. Abdomen 1 view (Generic) (Exam End: 09/21/2024 2:01 PM) Result Value WORKSTATION ID [id number] Impression Dobbhoff tube and enteric tube sidehole [...] who have questions please contact the health healthcare consultant that requested your imaging first. Chest One View (Exam End: 09/21/2024 2:01 PM) Result Value WORKSTATION ID [id number] Impression ET tube with tip projecting approximately [...] who have questions please contact the health healthcare consultant that requested your imaging first. Head wo Contrast (Generic) (Exam End: 09/22/2024 4:02 AM) Result Value WORKSTATION ID [id number] Impression Stable head CT status post removal of subcutaneous drain. No new or enlarging hemorrhage. Stable pattern of mass effect Thank you for letting us participate in the care of this patient. If you are a health care provider and have any questions regarding this report, please contact the number below. For patients who have questions please contact the health healthcare consultant that requested your imaging first. Assessment: 74 y.o. female with PMHx notable for Afib (taking ASA, previously on apixaban-stopped taking after IPH in April 2024), CHRISTOPHER, HLD, BMI of 36, prior IPH 04/2024 who presented to hospital 09/16/24 for placement of Watchman with cardiology. She developed headaches and nausea post op and CT scan noted large R fgkwhlqn-lsameej-lgulqrytk IPH. Now s/p R craniotomy for IPH [...] primary For questions please call NSGY pager [phone] Brianne Kinney MD Clinical Documentation Improvement: Active Hospital Problems Diagnosis Presence of Watchman left atrial appendage closure device Resolved Hospital Problems No resolved problems to display. Associated attestation - Sushila Espinal MD - 09/25/2024 4:09 PM EDT I was the attending physician supervising the resident in the above care. I agree with the history,physical exam, assessment, and plan. Sushila Espinal MD PhD [facility] Section of Neurosurgery Department of Surgery [facility] Medicine at [facility] [email or web address] * Marioal Calixto MD - 09/25/2024 10:09 AM EDT ICU PROGRESS NOTE DOA: 09/16/2024 Room: [address] [place], [place] [address]A Length of Stay: 9 ICU Length of Stay 8d 12h Lucero Bruno ( ) is a 74 y.o. 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 today for watchman procedure subsequently developing a [...] Last Ca, Mg, Phos Recent Labs 09/25/24 0429 CALCIUM 8.4* PHOS 3.4 MAGNESIUM 0.91 Last [...] y.o. Code Status: FULL. HPI: Presents to [facility] [place] watchman procedure and developed a large [...] EDT ICU PROGRESS NOTE DOA: 09/16/2024 Room: [address] [place] [address] Length of Stay: 8 ICU Length of Stay 7d 11h Lucero Bruno ( ) is a 74 y.o. 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 [place] for watchman procedure subsequently developing a [...] Guzman MD - 09/24/2024 6:58 AM EDT [facility] NEUROSURGERY PROGRESS NOTE ID: [...] 09/16/2024 5:26 PM) Result Value WORKSTATION ID [id number] Impression Interval expansion of now large right-sided [...] who have questions please contact the health healthcare consultant that requested your imaging first. Head wo Contrast (Generic) (Exam End: 09/16/2024 11:21 PM) Result Value WORKSTATION ID [id number] Impression CT head: 1. Interval craniotomy with [...] who have questions please contact the health healthcare consultant that requested your imaging first. Venogram Brain (Exam End: 09/16/2024 11:21 PM) Result Value WORKSTATION ID [id number] Impression CT head: 1. Interval craniotomy with [...] who have questions please contact the health healthcare consultant that requested your imaging first. Chest One View (Exam End: 09/16/2024 11:00 PM) Result Value WORKSTATION ID [id number] Impression Satisfactorily positioned enteric and endotracheal tubes. Left lower lobe atelectasis versus pneumonia. Thank you for letting us participate in the care of this patient. If you are a health care provider and have any questions regarding this report, please contact the number below. For patients who have questions please contact the health healthcare consultant that requested your imaging first. Abdomen 1 view (Generic) (Exam End: 09/16/2024 11:00 PM) Result Value WORKSTATION ID [id number] Impression Satisfactorily positioned enteric and endotracheal tubes. Left lower lobe atelectasis versus pneumonia. Thank you for letting us participate in the care of this patient. If you are a health care provider and have any questions regarding this report, please contact the number below. For patients who have questions please contact the health healthcare consultant that requested your imaging first. Head wo Contrast (Generic) (Exam End: 09/17/2024 4:51 AM) Result Value WORKSTATION ID [id number] Impression Increased size and density of dominant [...] who have questions please contact the health healthcare consultant that requested your imaging first. Chest One View (Exam End: 09/17/2024 2:13 PM) Result Value WORKSTATION ID [id number] Impression 1. No focal opacity in lung [...] who have questions please contact the health healthcare consultant that requested your imaging first. Chest One View (Exam End: 09/18/2024 8:43 AM) Result Value WORKSTATION ID [id number] Impression Tubes and lines as described. Blunting of the left costophrenic angle suggests tiny layering left effusion with associated left basilar consolidation/atelectasis Thank you for letting us participate in the care of this patient. If you are a health care provider and have any questions regarding this report, please contact the number below. For patients who have questions please contact the health healthcare consultant that requested your imaging first. Abdomen 1 view (Generic) (Exam End: 09/18/2024 12:31 PM) Result Value WORKSTATION ID [id number] Impression Dobbhoff tube tip along the greater curve of the stomach. Thank you for letting us participate in the care of this patient. If you are a health care provider and have any questions regarding this report, please contact the number below. For patients who have questions please contact the health healthcare consultant that requested your imaging first. Brain wwo Contrast (Generic) (Exam End: 09/19/2024 5:43 PM) Result Value WORKSTATION ID [id number] Impression Unchanged size of large right cerebral hemisphere ICH status post partial evacuation. Numerous small foci of decreased acute infarction both along and separate from the site of hemorrhage. These foci are present in both cerebral hemispheres and have a pattern most consistent with embolic infarction. No evidence of REELER OPERATOR malignancy Thank you for letting us participate in the care of this patient. If you are a health care provider and have any questions regarding this report, please contact the number below. For patients who have questions please contact the health healthcare consultant that requested your imaging first. Head wo Contrast (Generic) (Exam End: 09/21/2024 3:50 AM) Result Value WORKSTATION ID [id number] Impression Stable hemorrhage right temporal, parietal, right [...] who have questions please contact the health healthcare consultant that requested your imaging first. Abdomen 1 view (Generic) (Exam End: 09/21/2024 2:01 PM) Result Value WORKSTATION ID [id number] Impression Dobbhoff tube and enteric tube sidehole [...] who have questions please contact the health healthcare consultant that requested your imaging first. Chest One View (Exam End: 09/21/2024 2:01 PM) Result Value WORKSTATION ID [id number] Impression ET tube with tip projecting approximately [...] who have questions please contact the health healthcare consultant that requested your imaging first. Head wo Contrast (Generic) (Exam End: 09/22/2024 4:02 AM) Result Value WORKSTATION ID [id number] Impression Stable head CT status post removal of subcutaneous drain. No new or enlarging hemorrhage. Stable pattern of mass effect Thank you for letting us participate in the care of this patient. If you are a health care provider and have any questions regarding this report, please contact the number below. For patients who have questions please contact the health healthcare consultant that requested your imaging first. Assessment: 74 y.o. female with PMHx notable for Afib (taking ASA, previously on apixaban-stopped taking after IPH in April 2024), CHRISTOPHER, HLD, BMI of 36, prior IPH 04/2024 who presented to hospital 09/16/24 for placement of Watchman with cardiology. She developed headaches and nausea post op and CT scan noted large R rtomvits-ruegrsp-oxwodksar IPH. Now s/p 09/16/24, Dr. Espinal: R [...] primary For questions please call NSGY pager [phone] Rob Guzman MD Clinical Documentation Improvement: Active [...] y.o. Code Status: FULL. HPI: Presents to [facility] for watchman procedure and developed a large [...] to titrate FiO2 to 25%. * Anupama Pastrana, RN - 09/23/2024 3:51 PM EDT Based on discussions with the multi-disciplinary healthcare team, the patient would benefit from SNF level of care at discharge. I have met with the financial services representative (son Don Pollard) to: discuss discharge planning needs. provide the [facility], Office of Care Management letter from the Executive Relations Specialist pertaining to rehab referrals. provide a letter describing our affiliations within the [facility] and educate about their right to choose where referrals are sent. provide the CMS Star Quality Rating handout. review the different levels of rehab including SNF, swing, and acute. provide a list of facilities within their preferred geographic area. request that they provide at least three choices for referral. They have requested referrals to: [facility] and [facility] [address] [place] [address] Note routed to a Casting Supervisor who will communicate referrals to facilities and provide any required information. Anupama Pastrana, MSN, RN, ACM-RN [facility] medical corps officer * Dayana Cotter, ZUHAIR - 09/23/2024 10:25 AM EDT Speech-Language Pathology Consult Note Lucero Bruno is a 74 y.o. 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 09/16/24 for watchman procedure subsequently developing a large R ICH requiring intubation for airway protection, heparin reversal with protamine and emergent OR for craniotomy and hematoma evacuation. Remains in Neuro ICU on vent. [employer] team will continue to monitor. Dayana Cotter MA [facility] Inpatient Rehabilitation Medicine pager:# [phone] * Mariola Calixto MD - 09/23/2024 9:27 AM EDT ICU PROGRESS NOTE DOA: 09/16/2024 Room: [address] [place], [place] [address]A Length of Stay: 7 ICU Length of Stay 6d 11h Lucero Bruno ( ) is a 74 y.o. 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 today for watchman procedure subsequently developing a [...] Stopped (09/23/24 035) dexmedeTOMIDine 0.4 mcg/kg/hr (09/23/24 09) PRN Meds:.potassium chloride in water OR potassium [...] - optimize regimen with goal of 1 [id number] while on TF Monitor BG - goal of 140-180 Daily weights I was able to discuss plan with provider [facility] [id number] . Current Nutrition Regimen: Active Orders [...] encounter: 89.2 kg (196 lb 10.4 oz). [place] Body Weight (IBW) (kg): 45.45 Wt Readings [...] Diagnosis: Not enough data to assess (Maribel, TRACE J Parenteral Enteral Nutr. 2011; 36(3): 273-83) Nutrition to continue to follow up while inpatient Thank you, Sherine Santana, MS, RD, LD, [facility] Clinical Nutrition * Rbo Guzman MD - 09/23/2024 7:22 AM EDT [facility] NEUROSURGERY PROGRESS NOTE ID: [...] 09/16/2024 5:26 PM) Result Value WORKSTATION ID [id number] Impression Interval expansion of now large right-sided [...] who have questions please contact the health healthcare consultant that requested your imaging first. Head wo Contrast (Generic) (Exam End: 09/16/2024 11:21 PM) Result Value WORKSTATION ID [id number] Imp[address] CT head: 1. Interval craniotomy with [...] who have questions please contact the health healthcare consultant that requested your imaging first. Venogram Brain (Exam End: 09/16/2024 11:21 PM) Result Value WORKSTATION ID [id number] Impression CT head: 1. Interval craniotomy with [...] who have questions please contact the health healthcare consultant that requested your imaging first. Chest One View (Exam End: 09/16/2024 11:00 PM) Result Value WORKSTATION ID [id number] Impression Satisfactorily positioned enteric and endotracheal tubes. Left lower lobe atelectasis versus pneumonia. Thank you for letting us participate in the care of this patient. If you are a health care provider and have any questions regarding this report, please contact the number below. For patients who have questions please contact the health healthcare consultant that requested your imaging first. Abdomen 1 view (Generic) (Exam End: 09/16/2024 11:00 PM) Result Value WORKSTATION ID [id number] Impression Satisfactorily positioned enteric and endotracheal tubes. Left lower lobe atelectasis versus pneumonia. Thank you for letting us participate in the care of this patient. If you are a health care provider and have any questions regarding this report, please contact the number below. For patients who have questions please contact the health healthcare consultant that requested your imaging first. Head wo Contrast (Generic) (Exam End: 09/17/2024 4:51 AM) Result Value WORKSTATION ID [id number] Impression Increased size and density of dominant [...] who have questions please contact the health healthcare consultant that requested your imaging first. Chest One View (Exam End: 09/17/2024 2:13 PM) Result Value WORKSTATION ID [id number] Impression 1. No focal opacity in lung [...] who have questions please contact the health healthcare consultant that requested your imaging first. Chest One View (Exam End: 09/18/2024 8:43 AM) Result Value WORKSTATION ID [id number] Impression Tubes and lines as described. Blunting of the left costophrenic angle suggests tiny layering left effusion with associated left basilar consolidation/atelectasis Thank you for letting us participate in the care of this patient. If you are a health care provider and have any questions regarding this report, please contact the number below. For patients who have questions please contact the health healthcare consultant that requested your imaging first. Abdomen 1 view (Generic) (Exam End: 09/18/2024 12:31 PM) Result Value WORKSTATION ID [id number] Impression Dobbhoff tube tip along the greater curve of the stomach. Thank you for letting us participate in the care of this patient. If you are a health care provider and have any questions regarding this report, please contact the number below. For patients who have questions please contact the health healthcare consultant that requested your imaging first. Brain wwo Contrast (Generic) (Exam End: 09/19/2024 5:43 PM) Result Value WORKSTATION ID [id number] Impression Unchanged size of large right cerebral hemisphere ICH status post partial evacuation. Numerous small foci of decreased acute infarction both along and separate from the site of hemorrhage. These foci are present in both cerebral hemispheres and have a pattern most consistent with embolic infarction. No evidence of REELER OPERATOR malignancy Thank you for letting us participate in the care of this patient. If you are a health care provider and have any questions regarding this report, please contact the number below. For patients who have questions please contact the health healthcare consultant that requested your imaging first. Head wo Contrast (Generic) (Exam End: 09/21/2024 3:50 AM) Result Value WORKSTATION ID [id number] Impression Stable hemorrhage right temporal, parietal, right [...] who have questions please contact the health healthcare consultant that requested your imaging first. Abdomen 1 view (Generic) (Exam End: 09/21/2024 2:01 PM) Result Value WORKSTATION ID [id number] Impression Dobbhoff tube and enteric tube sidehole [...] who have questions please contact the health healthcare consultant that requested your imaging first. Chest One View (Exam End: 09/21/2024 2:01 PM) Result Value WORKSTATION ID [id number] Impression ET tube with tip projecting approximately [...] who have questions please contact the health healthcare consultant that requested your imaging first. Head wo Contrast (Generic) (Exam End: 09/22/2024 4:02 AM) Result Value WORKSTATION ID [id number] Impression Stable head CT status post removal of subcutaneous drain. No new or enlarging hemorrhage. Stable pattern of mass effect Thank you for letting us participate in the care of this patient. If you are a health care provider and have any questions regarding this report, please contact the number below. For patients who have questions please contact the health healthcare consultant that requested your imaging first. Assessment: 74 y.o. female with PMHx notable for Afib (taking ASA, previously on apixaban-stopped taking after IPH in April 2024), CHRISTOPHER, HLD, BMI of 36, prior IPH 04/2024 who presented to hospital 09/16/24 for placement of Watchman with cardiology. She developed headaches and nausea post op and CT scan noted large R mrdecrfh-oglqlvl-rsznhwprw IPH. Now s/p 09/16/24, Dr. Espinal: R [...] care per primary For questions please call NSAllovue pager [phone] Rob Guzman MD Clinical Documentation Improvement: Active [...] y.o. Code Status: FULL. HPI: Presents to [facility] for watchman procedure and developed a large [...] 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 for watchman procedure subsequently developing a large [...] 0.63) performed by Sushila Espinal MD at [facility] MAIN OR PRO LAPAROSCOPY W TOT HYSTERECTUTERUS <=250 GRAM W TUBE/OVARY N/A 04/23/2024 LAPAROSCOPY, TOTAL HYST, UTERUS<250GMS, REM TUBE &/OR OVARY (WRVU 15) performed by Xiomara Burkett MD at [facility] MAIN OR PRO OPEN SKULL EVAC INTRACEREBR BLOOD Right 09/16/2024 @CRANI-HEMATOMA EVACUATION, INTRACEREBRAL (WRVU 28.09) performed by Sushila Espinal MD at [facility] MAIN OR Social History: per previous [...] in all aspects. 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 Pt presented to [facility] for watchman procedure subsequently developing a large [...] outlined inthis evaluation. Time IN / OUT: 2161-3280 Total Minutes, Physical Therapy: 18 Billing Code: mod complexity yolaal Kymberly Baptiste PT, DPT, NCS Pager: [phone] Physical Therapy Inpatient Rehabilitation Department * Mariola Calixto MD - 09/22/2024 11:08 AM EDT ICU PROGRESS NOTE DOA: 09/16/2024 Room: [address] [place] [address]A Length of Stay: 6 ICU Length of Stay 5d 13h Lucero Bruno ( ) is a 74 y.o. 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 today for watchman procedure subsequently developing a [...] Deleon MD - 09/22/2024 6:42 AM EDT [facility] NEUROSURGERY PROGRESS NOTE ID: [...] 8.9* PLATELET 274 217 191 Recent Labs 09/22/2412509/21/242009/20/24 0009 NA 139 141 139 K 4.0 4.2 4.2 CL 104 107 107 CO2 23 23 22 BUN 26* 30* 23* CREATININE 0.53* 0.54* 0.52* No results for input(s): PT, INR in the last 72 hours. IMAGING: Results for orders placed or performed during the hospital encounter of 09/16/24 CT Head wo Contrast (Generic) (Exam End: 09/16/2024 5:26 PM) Result Value WORKSTATION ID [id number] Impression Interval expansion of now large right-sided [...] who have questions please contact the health healthcare consultant that requested your imaging first. Head wo Contrast (Generic) (Exam End: 09/16/2024 11:21 PM) Result Value WORKSTATION ID [id number] Impression CT head: 1. Interval craniotomy with [...] who have questions please contact the health healthcare consultant that requested your imaging first. Venogram Brain (Exam End: 09/16/2024 11:21 PM) Result Value WORKSTATION ID [id number] Impression CT head: 1. Interval craniotomy with [...] who have questions please contact the health healthcare consultant that requested your imaging first. Chest One View (Exam End: 09/16/2024 11:00 PM) Result Value WORKSTATION ID [id number] Impression Satisfactorily positioned enteric and endotracheal tubes. Left lower lobe atelectasis versus pneumonia. Thank you for letting us participate in the care of this patient. If you are a health care provider and have any questions regarding this report, please contact the number below. For patients who have questions please contact the health healthcare consultant that requested your imaging first. Abdomen 1 view (Generic) (Exam End: 09/16/2024 11:00 PM) Result Value WORKSTATION ID [id number] Impression Satisfactorily positioned enteric and endotracheal tubes. Left lower lobe atelectasis versus pneumonia. Thank you for letting us participate in the care of this patient. If you are a health care provider and have any questions regarding this report, please contact the number below. For patients who have questions please contact the health healthcare consultant that requested your imaging first. Head wo Contrast (Generic) (Exam End: 09/17/2024 4:51 AM) Result Value WORKSTATION ID [id number] Impression Increased size and density of dominant [...] who have questions please contact the health healthcare consultant that requested your imaging first. Chest One View (Exam End: 09/17/2024 2:13 PM) Result Value WORKSTATION ID [id number] Impression 1. No focal opacity in lung [...] who have questions please contact the health healthcare consultant that requested your imaging first. Chest One View (Exam End: 09/18/2024 8:43 AM) Result Value WORKSTATION ID [id number] Impression Tubes and lines as described. Blunting of the left costophrenic angle suggests tiny layering left effusion with associated left basilar consolidation/atelectasis Thank you for letting us participate in the care of this patient. If you are a health care provider and have any questions regarding this report, please contact the number below. For patients who have questions please contact the health healthcare consultant that requested your imaging first. Abdomen 1 view (Generic) (Exam End: 09/18/2024 12:31 PM) Result Value WORKSTATION ID [id number] Impression Dobbhoff tube tip along the greater curve of the stomach. Thank you for letting us participate in the care of this patient. If you are a health care provider and have any questions regarding this report, please contact the number below. For patients who have questions please contact the health healthcare consultant that requested your imaging first. Brain wwo Contrast (Generic) (Exam End: 09/19/2024 5:43 PM) Result Value WORKSTATION ID [id number] Impression Unchanged size of large right cerebral hemisphere ICH status post partial evacuation. Numerous small foci of decreased acute infarction both along and separate from the site of hemorrhage. These foci are present in both cerebral hemispheres and have a pattern most consistent with embolic infarction. No evidence of REELER OPERATOR malignancy Thank you for letting us participate in the care of this patient. If you are a health care provider and have any questions regarding this report, please contact the number below. For patients who have questions please contact the health healthcare consultant that requested your imaging first. Head wo Contrast (Generic) (Exam End: 09/21/2024 3:50 AM) Result Value WORKSTATION ID [id number] Impression Stable hemorrhage right temporal, parietal, right [...] who have questions please contact the health healthcare consultant that requested your imaging first. Abdomen 1 view (Generic) (Exam End: 09/21/2024 2:01 PM) Result Value WORKSTATION ID [id number] Impression Dobbhoff tube and enteric tube sidehole [...] who have questions please contact the health healthcare consultant that requested your imaging first. Chest One View (Exam End: 09/21/2024 2:01 PM) Result Value WORKSTATION ID [id number] Impression ET tube with tip projecting approximately [...] who have questions please contact the health healthcare consultant that requested your imaging first. Head wo Contrast (Generic) (Exam End: 09/22/2024 4:02 AM) Result Value WORKSTATION ID [id number] Impression Stable head CT status post removal of subcutaneous drain. No new or enlarging hemorrhage. Stable pattern of mass effect Thank you for letting us participate in the care of this patient. If you are a health care provider and have any questions regarding this report, please contact the number below. For patients who have questions please contact the health healthcare consultant that requested your imaging first. Assessment: 74 y.o. female with PMHx notable for Afib (taking ASA, previously on apixaban-stopped taking after IPH in April 2024), CHRISTOPHER, HLD, BMI of 36, prior IPH 04/2024 who presented to hospital 09/16/24 for placement of Watchman with cardiology. She developed headaches and nausea post op and CT scan noted large R kabcvwud-cdxzfbi-xgyphzkuq IPH. Now s/p 09/16/24, Dr. Espinal: R [...] primary For questions please call NSGY pager [phone] Dodie Deleon MD Clinical Documentation Improvement: Active [...] given, BP improved slightly, levo added as OR, NSR. Generalized edema. OG d/c, DHT in [...] Outcome: Ongoing (Interventions Implemented as Appropriate) * PoGayle dailey RCP - 09/22/2024 5:13 AM EDT AMV Protocol: Yes SBT Protocol: Yes SBT: Passed Vent Settings: Ventilator Mode:PS/CPAP PEEP Set: 8 FiO2: 40 % PSV: 8 Ventilator Measurements: Resp: 23 Vt Spontaneous: 452 Ve: 11.8 SpO2: 96 % EtCO2: 24 mmHg Airway: 7.5 @ 22 cm at the Teeth. Skin Integrity: WDL Nebulized Medications: Albuterol & Ipratroprium Q4 Breath Sounds: coarse Secretions: small, zaptaa, thick Assessment / Events / Plan of the Day: Received pt on above settings. Events: Pt passed SBT on PSV 0/8 40%, weaned to PSV 5/8 35% after SBT. No acute respiratory events overnight. Plan: Continue AMV/ SBT protocol; wean vent settings as tolerated. Gayle Daniel RCP * Erick Pinon MD - 09/21/2024 6:30 PM EDT [facility] Neurosurgery Patient seen and examined on rounds. She remains intubated but was wide-awake and alert, tracking and attending. She followed commands briskly in the right upper and lower extremity. She did not follow on the left. Her incision was clean, dry, and intact. Continue with neurosurgical care as previously outlined. Neurosurgery Pager: [phone] Erick Pinon MD 09/21/2024 6:57 PM * Enedina Titus SLP - 09/21/2024 4:22 PM EDT Speech Language Pathology Contact Note - No Charge Visit Order received for post-extubation clinical swallow evaluation. Chart reviewed. Pt was emergently re-intubated for respiratory distress after failed extubation today. WOOD FLOOR [employer]AYER team will continue to monitor. Please page with any questions or concerns. Enedina Munoz M.A., CCC-[employer]OR [employer]ER Speech-Language Pathology Inpatient Rehabilitation Department Pager # [phone] * Rob Guzman MD - 09/21/2024 3:24 PM EDT [facility] NEUROSURGERY PROGRESS NOTE ID: [...] 09/16/2024 5:26 PM) Result Value WORKSTATION ID [id number] Impression Interval expansion of now large right-sided [...] who have questions please contact the health healthcare consultant that requested your imaging first. Head wo Contrast (Generic) (Exam End: 09/16/2024 11:21 PM) Result Value WORKSTATION ID [id number] Impression CT head: 1. Interval craniotomy with [...] who have questions please contact the health healthcare consultant that requested your imaging first. Venogram Brain (Exam End: 09/16/2024 11:21 PM) Result Value WORKSTATION ID [id number] Impression CT head: 1. Interval craniotomy with [...] who have questions please contact the health healthcare consultant that requested your imaging first. Chest One View (Exam End: 09/16/2024 11:00 PM) Result Value WORKSTATION ID [id number] Impression Satisfactorily positioned enteric and endotracheal tubes. Left lower lobe atelectasis versus pneumonia. Thank you for letting us participate in the care of this patient. If you are a health care provider and have any questions regarding this report, please contact the number below. For patients who have questions please contact the health healthcare consultant that requested your imaging first. Abdomen 1 view (Generic) (Exam End: 09/16/2024 11:00 PM) Result Value WORKSTATION ID [id number] Impression Satisfactorily positioned enteric and endotracheal tubes. Left lower lobe atelectasis versus pneumonia. Thank you for letting us participate in the care of this patient. If you are a health care provider and have any questions regarding this report, please contact the number below. For patients who have questions please contact the health healthcare consultant that requested your imaging first. Head wo Contrast (Generic) (Exam End: 09/17/2024 4:51 AM) Result Value WORKSTATION ID [id number] Impression Increased size and density of dominant [...] who have questions please contact the health healthcare consultant that requested your imaging first. Chest One View (Exam End: 09/17/2024 2:13 PM) Result Value WORKSTATION ID [id number] Impression 1. No focal opacity in lung [...] who have questions please contact the health healthcare consultant that requested your imaging first. Chest One View (Exam End: 09/18/2024 8:43 AM) Result Value WORKSTATION ID [id number] Impression Tubes and lines as described. Blunting of the left costophrenic angle suggests tiny layering left effusion with associated left basilar consolidation/atelectasis Thank you for letting us participate in the care of this patient. If you are a health care provider and have any questions regarding this report, please contact the number below. For patients who have questions please contact the health healthcare consultant that requested your imaging first. Abdomen 1 view (Generic) (Exam End: 09/18/2024 12:31 PM) Result Value WORKSTATION ID [id number] Impression Dobbhoff tube tip along the greater curve of the stomach. Thank you for letting us participate in the care of this patient. If you are a health care provider and have any questions regarding this report, please contact the number below. For patients who have questions please contact the health healthcare consultant that requested your imaging first. Brain wwo Contrast (Generic) (Exam End: 09/19/2024 5:43 PM) Result Value WORKSTATION ID [id number] Impression Unchanged size of large right cerebral hemisphere ICH status post partial evacuation. Numerous small foci of decreased acute infarction both along and separate from the site of hemorrhage. These foci are present in both cerebral hemispheres and have a pattern most consistent with embolic infarction. No evidence of REELER OPERATOR malignancy Thank you for letting us participate in the care of this patient. If you are a health care provider and have any questions regarding this report, please contact the number below. For patients who have questions please contact the health healthcare consultant that requested your imaging first. Head wo Contrast (Generic) (Exam End: 09/21/2024 3:50 AM) Result Value WORKSTATION ID [id number] Impression Stable hemorrhage right temporal, parietal, right [...] who have questions please contact the health healthcare consultant that requested your imaging first. Assessment: 74 y.o. female with PMHx notable for Afib (taking ASA, previously on apixaban-stopped taking after IPH in April 2024), CHRISTOPHER, HLD, BMI of 36, prior IPH 04/2024 who presented to hospital 09/16/24 for placement of Watchman with cardiology. She developed headaches and nausea post op and CT scan noted large R fogzyrvp-zjplxae-jwjefeell IPH. Repeated CTH wo contrast overnight showing [...] antiplatelets/anticoagulants -Na goal 140-150 -Remove AUBREY today -[facility] [place] [address]40Sep 22 -Wean sedation and wean to extubate as able -Rest of care per primary For questions please call NS pager [phone] Rob Guzman MD Clinical Documentation Improvement: Active [...] - optimize regimen with goal of 1 i92-20kiy while on TF Monitor BG - goal of 140-180 Daily weights I was able to discuss plan with provider Neurocritical Care Pager #[phone] . Current Nutrition Regimen: Active Orders Diet [...] encounter: 91.3 kg (201 lb 4.5 oz). [place] Body Weight (IBW) (kg): 45.45 Wt Readings [...] Diagnosis: Not enough data to assess (Mari main al, TRACE J Parenteral Enteral Nutr. 2012 March; 36(3): 273-83) Nutrition to continue to follow up while inpatient Thank you, Sherine Henriquez. Max, MS, RD, LD, [facility] Clinical Nutrition * Mariola Calixto MD - 09/21/2024 9:35 AM EDT ICU PROGRESS NOTE DOA: 09/16/2024 Room: [address] [place] [address]A Length of Stay: 5 ICU Length of Stay 4d 11h Lucero Bruno ( ) is a 74 y.o. 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 today for watchman procedure subsequently developing a [...] Gas) No results found for: PHART, PO2ART, UHU4ULL Initial Assessment: Received patient intubated on vent [...] EDT ICU PROGRESS NOTE DOA: 09/16/2024 Room: [address] [place] [address] Length of Stay: 4 ICU Length of Stay 3d 11h Lucero Bruno ( ) is a 74 y.o. 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 [place] for watchman procedure subsequently developing a [...] Guzman MD - 09/20/2024 8:17 AM EDT [facility] NEUROSURGERY PROGRESS NOTE ID: Lucero Bruno 74 y.o. female : 1950 LOS: 4 Neurosurgical Procedures this Admission: 09/16/24, Dr. Espinal: R craniotomy for IPH evacuation INTERVAL Hx: -NAEON. Intubated. FC in RUE MEDICATIONS: Scheduled Meds: amLODIPine 5 mg Per NG tube Daily heparin (porcine) 5,000 Units Subcutaneous Q8H ACRLY dilTIAZem 90 mg Per NG tube Q6H [...] 09/16/2024 5:26 PM) Result Value WORKSTATION ID [id number] Impression Interval expansion of now large right-sided [...] who have questions please contact the health healthcare consultant that requested your imaging first. Head wo Contrast (Generic) (Exam End: 09/16/2024 11:21 PM) Result Value WORKSTATION ID [id number] Impression CT head: 1. Interval craniotomy with [...] who have questions please contact the health healthcare consultant that requested your imaging first. Venogram Brain (Exam End: 09/16/2024 11:21 PM) Result Value WORKSTATION ID [id number] Impression CT head: 1. Interval craniotomy with [...] who have questions please contact the health healthcare consultant that requested your imaging first. Chest One View (Exam End: 09/16/2024 11:00 PM) Result Value WORKSTATION ID [id number] Impression Satisfactorily positioned enteric and endotracheal tubes. Left lower lobe atelectasis versus pneumonia. Thank you for letting us participate in the care of this patient. If you are a health care provider and have any questions regarding this report, please contact the number below. For patients who have questions please contact the health healthcare consultant that requested your imaging first. Abdomen 1 view (Generic) (Exam End: 09/16/2024 11:00 PM) Result Value WORKSTATION ID [id number] Impression Satisfactorily positioned enteric and endotracheal tubes. Left lower lobe atelectasis versus pneumonia. Thank you for letting us participate in the care of this patient. If you are a health care provider and have any questions regarding this report, please contact the number below. For patients who have questions please contact the health healthcare consultant that requested your imaging first. Head wo Contrast (Generic) (Exam End: 09/17/2024 4:51 AM) Result Value WORKSTATION ID [id number] Impression Increased size and density of dominant [...] who have questions please contact the health healthcare consultant that requested your imaging first. Chest One View (Exam End: 09/17/2024 2:13 PM) Result Value WORKSTATION ID [id number] Impression 1. No focal opacity in lung [...] who have questions please contact the health healthcare consultant that requested your imaging first. Chest One View (Exam End: 09/18/2024 8:43 AM) Result Value WORKSTATION ID [id number] Impression Tubes and lines as described. Blunting of the left costophrenic angle suggests tiny layering left effusion with associated left basilar consolidation/atelectasis Thank you for letting us participate in the care of this patient. If you are a health care provider and have any questions regarding this report, please contact the number below. For patients who have questions please contact the health healthcare consultant that requested your imaging first. Abdomen 1 view (Generic) (Exam End: 09/18/2024 12:31 PM) Result Value WORKSTATION ID [id number] Impression Dobbhoff tube tip along the greater curve of the stomach. Thank you for letting us participate in the care of this patient. If you are a health care provider and have any questions regarding this report, please contact the number below. For patients who have questions please contact the health healthcare consultant that requested your imaging first. Brain wwo Contrast (Generic) (Exam End: 09/19/2024 5:43 PM) Result Value WORKSTATION ID [id number] Impression Unchanged size of large right cerebral hemisphere ICH status post partial evacuation. Numerous small foci of decreased acute infarction both along and separate from the site of hemorrhage. These foci are present in both cerebral hemispheres and have a pattern most consistent with embolic infarction. No evidence of REELER OPERATOR malignancy Thank you for letting us participate in the care of this patient. If you are a health care provider and have any questions regarding this report, please contact the number below. For patients who have questions please contact the health healthcare consultant that requested your imaging first. Assessment: 74 y.o. female with PMHx notable for Afib (taking ASA, previously on apixaban-stopped taking after IPH in April 2024), CHRISTOPHER, HLD, BMI of 36, prior IPH 04/2024 who presented to hospital 09/16/24 for placement of Watchman with cardiology. She developed headaches and nausea post op and CT scan noted large R rmtvuhkj-pcfnclw-nrtkjjtsl IPH. Repeated CTH wo contrast overnight showing [...] care per primary For questions please call Libratone pager [phone] Rob Guzman MD Clinical Documentation Improvement: Active Hospital Problems Diagnosis Presence of Watchman left atrial appendage closure device Resolved Hospital Problems No resolved problems to display. Associated attestation - Sushlia Espinal MD - 09/20/2024 7:48 PM EDT [...] head tomorrow AM Sushila Espinal MD PhD [facility] Section of Neurosurgery Department of Surgery [facility] [email or web address] * Bartolome Xiao RCP - 09/20/2024 [...] Gas) No results found for: PHART, PO2ART, NCB9TVT Initial Assessment: Received patient intubated on vent [...] List Situational Awareness & Contingency Planning * Mukund Espinosa MD - 09/19/2024 9:58 AM EDT ICU PROGRESS NOTE DOA: 09/16/2024 Room: [address] [place] [address] Length of Stay: 3 ICU Length of Stay 2d 11h Lucero Bruno ( ) is a 74 y.o. 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 today for watchman procedure subsequently developing a [...] supporting interventions and documentation on the unit. Mukund Espinosa MD 09/19/2024 9:58 AM * Crys Suarez MD - 09/19/2024 9:54 AM EDT [facility] NEUROSURGERY PROGRESS NOTE ID: [...] 09/16/2024 5:26 PM) Result Value WORKSTATION ID [id number] Impression Interval expansion of now large right-sided [...] who have questions please contact the health healthcare consultant that requested your imaging first. Head wo Contrast (Generic) (Exam End: 09/16/2024 11:21 PM) Result Value WORKSTATION ID [id number] Impression CT head: 1. Interval craniotomy with [...] who have questions please contact the health healthcare consultant that requested your imaging first. Venogram Brain (Exam End: 09/16/2024 11:21 PM) Result Value WORKSTATION ID [id number] Impression CT head: 1. Interval craniotomy with [...] who have questions please contact the health healthcare consultant that requested your imaging first. Chest One View (Exam End: 09/16/2024 11:00 PM) Result Value WORKSTATION ID [id number] Impression Satisfactorily positioned enteric and endotracheal tubes. Left lower lobe atelectasis versus pneumonia. Thank you for letting us participate in the care of this patient. If you are a health care provider and have any questions regarding this report, please contact the number below. For patients who have questions please contact the health healthcare consultant that requested your imaging first. Abdomen 1 view (Generic) (Exam End: 09/16/2024 11:00 PM) Result Value WORKSTATION ID [id number] Impression Satisfactorily positioned enteric and endotracheal tubes. Left lower lobe atelectasis versus pneumonia. Thank you for letting us participate in the care of this patient. If you are a health care provider and have any questions regarding this report, please contact the number below. For patients who have questions please contact the health healthcare consultant that requested your imaging first. Head wo Contrast (Generic) (Exam End: 09/17/2024 4:51 AM) Result Value WORKSTATION ID [id number] Impression Increased size and density of dominant [...] who have questions please contact the health healthcare consultant that requested your imaging first. Chest One View (Exam End: 09/17/2024 2:13 PM) Result Value WORKSTATION ID [id number] Impression 1. No focal opacity in lung [...] who have questions please contact the health healthcare consultant that requested your imaging first. Chest One View (Exam End: 09/18/2024 8:43 AM) Result Value WORKSTATION ID [id number] Impression Tubes and lines as described. Blunting of the left costophrenic angle suggests tiny layering left effusion with associated left basilar consolidation/atelectasis Thank you for letting us participate in the care of this patient. If you are a health care provider and have any questions regarding this report, please contact the number below. For patients who have questions please contact the health healthcare consultant that requested your imaging first. Abdomen 1 view (Generic) (Exam End: 09/18/2024 12:31 PM) Result Value WORKSTATION ID [id number] Impression Dobbhoff tube tip along the greater curve of the stomach. Thank you for letting us participate in the care of this patient. If you are a health care provider and have any questions regarding this report, please contact the number below. For patients who have questions please contact the health healthcare consultant that requested your imaging first. Assessment: 74 y.o. female with PMHx notable for Afib (taking ASA, previously on apixaban-stopped taking after IPH in April 2024), CHRISTOPHER, HLD, BMI of 36, prior IPH 04/2024 who presented to hospital 09/16/24 for placement of Watchman with cardiology. She developed headaches and nausea post op and CT scan noted large R mxigrvkw-dkabqaj-iyknillcp IPH. Repeated CTH wo contrast overnight showing [...] primary For questions please call NSGY pager [phone] Crys Suarez MD Clinical Documentation Improvement: Active Hospital Problems Diagnosis Presence of Watchman left atrial appendage closure device Resolved Hospital Problems No resolved problems to display. Associated attestation - Sushila Espinal MD - 09/20/2024 1:05 PM EDT I was the attending physician supervising the resident in the above care. I agree with the history,physical exam, assessment, and plan. Sushila Espinal MD PhD [facility] Section of Neurosurgery Department of Surgery [facility] [email or web address] * Ezequiel Morales RN - 09/19/2024 [...] Gas) No results found for: PHART, PO2ART, ODT1NUQ Initial Assessment: Received patient intubated on vent [...] N/A Situational Awareness & Contingency Planning * Mukund Espinosa MD - 09/18/2024 11:04 AM EDT ICU PROGRESS NOTE DOA: 09/16/2024 Room: [facility] Length of Stay: 2 ICU Length of Stay 1d 13h Lucero Bruno ( ) is a 74 y.o. 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 today for watchman procedure subsequently developing a large R ICH requiring intubation for airway protection, heparin reversal with protamine and emergent OR for craniotomy and hematoma evacuation. Over night events: Febrile to 101.3, pancultured. Required 3 PRNs for BP control. Medications: Scheduled Meds: acetaminophen 1,000 mg Intravenous Q6H CARLY insulin lispro 1-4 Units Subcutaneous Q4H [facility] multivitamin with minerals 1 tablet Per NG [...] supporting interventions and documentation on the unit. Mukund Espinosa MD 09/18/2024 11:04 AM * Crys Suarez MD - 09/18/2024 7:59 AM EDT [facility] NEUROSURGERY PROGRESS NOTE ID: [...] 09/16/2024 5:26 PM) Result Value WORKSTATION ID [id number] Impression Interval expansion of now large right-sided [...] who have questions please contact the health healthcare consultant that requested your imaging first. Head wo Contrast (Generic) (Exam End: 09/16/2024 11:21 PM) Result Value WORKSTATION ID [id number] Impression CT head: 1. Interval craniotomy with [...] who have questions please contact the health healthcare consultant that requested your imaging first. Venogram Brain (Exam End: 09/16/2024 11:21 PM) Result Value WORKSTATION ID [id number] Impression CT head: 1. Interval craniotomy with [...] who have questions please contact the health healthcare consultant that requested your imaging first. Chest One View (Exam End: 09/16/2024 11:00 PM) Result Value WORKSTATION ID [id number] Impression Satisfactorily positioned enteric and endotracheal tubes. Left lower lobe atelectasis versus pneumonia. Thank you for letting us participate in the care of this patient. If you are a health care provider and have any questions regarding this report, please contact the number below. For patients who have questions please contact the health healthcare consultant that requested your imaging first. Abdomen 1 view (Generic) (Exam End: 09/16/2024 11:00 PM) Result Value WORKSTATION ID [id number] Impression Satisfactorily positioned enteric and endotracheal tubes. Left lower lobe atelectasis versus pneumonia. Thank you for letting us participate in the care of this patient. If you are a health care provider and have any questions regarding this report, please contact the number below. For patients who have questions please contact the health healthcare consultant that requested your imaging first. Head wo Contrast (Generic) (Exam End: 09/17/2024 4:51 AM) Result Value WORKSTATION ID [id number] Impression Increased size and density of dominant [...] who have questions please contact the health healthcare consultant that requested your imaging first. Chest One View (Exam End: 09/17/2024 2:13 PM) Result Value WORKSTATION ID [id number] Impression 1. No focal opacity in lung [...] who have questions please contact the health healthcare consultant that requested your imaging first. Assessment: 74 y.o. female with PMHx notable for Afib (taking ASA, previously on apixaban-stopped taking after IPH in April 2024), CHRISTOPHER, HLD, BMI of 36, prior IPH 04/2024 who presented to hospital 09/16/24 for placement of Watchman with cardiology. She developed headaches and nausea post op and CT scan noted large R qaqjnybg-amlhjtl-grrkzdhcu IPH. Repeated CTH wo contrast overnight showing [...] primary For questions please call NSGY pager [phone] Crys Suarez MD Clinical Documentation Improvement: Active Hospital Problems Diagnosis Presence of Watchman left atrial appendage closure device Resolved Hospital Problems No resolved problems to display. Associated attestation - Sushila Espinal MD - 09/20/2024 1:06 PM EDT I was the attending physician supervising the resident in the above care. I agree with the history,physical exam, assessment, and plan. Sushila Espinal MD PhD [facility] Section of Neurosurgery Department of Surgery [facility] [email or web address] * Ezequiel Morales RN - 09/18/2024 [...] as Appropriate) * Jose De La Torre [facility] - 09/17/2024 4:45 PM EDT Illness Severity [...] support. Jose De La Torre RCP * Mukund Espinosa MD - 09/17/2024 12:16 PM EDT ICU PROGRESS NOTE DOA: 09/16/2024 Room: [address] [place] [address] Length of Stay: 1 ICU Length of Stay 14h Lucero Bruno ( ) is a 74 y.o. 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 today for watchman procedure subsequently developing a [...] supporting interventions and documentation on the unit. Mukund Espinosa MD 09/17/2024 12:16 PM * Ezequiel [...] Deleon MD - 09/17/2024 6:18 AM EDT [facility] NEUROSURGERY PROGRESS NOTE ID: [...] Output 1314 ml Net 1460.55 ml Drains: UABREY with bloody output, 195cc GEN: Intubated and [...] 09/16/2024 5:26 PM) Result Value WORKSTATION ID [id number] Impression Interval expansion of now large right-sided [...] who have questions please contact the health healthcare consultant that requested your imaging first. Head wo Contrast (Generic) (Exam End: 09/16/2024 11:21 PM) Result Value WORKSTATION ID [id number] Impression CT head: 1. Interval craniotomy with [...] who have questions please contact the health healthcare consultant that requested your imaging first. Venogram Brain (Exam End: 09/16/2024 11:21 PM) Result Value WORKSTATION ID [id number] Impression CT head: 1. Interval craniotomy with [...] who have questions please contact the health healthcare consultant that requested your imaging first. Chest One View (Exam End: 09/16/2024 11:00 PM) Result Value WORKSTATION ID [id number] Impression Satisfactorily positioned enteric and endotracheal tubes. Left lower lobe atelectasis versus pneumonia. Thank you for letting us participate in the care of this patient. If you are a health care provider and have any questions regarding this report, please contact the number below. For patients who have questions please contact the health healthcare consultant that requested your imaging first. Abdomen 1 view (Generic) (Exam End: 09/16/2024 11:00 PM) Result Value WORKSTATION ID [id number] Impression Satisfactorily positioned enteric and endotracheal tubes. Left lower lobe atelectasis versus pneumonia. Thank you for letting us participate in the care of this patient. If you are a health care provider and have any questions regarding this report, please contact the number below. For patients who have questions please contact the health healthcare consultant that requested your imaging first. Head wo Contrast (Generic) (Exam End: 09/17/2024 4:51 AM) Result Value WORKSTATION ID [id number] Impression Increased size and density of dominant [...] who have questions please contact the health healthcare consultant that requested your imaging first. Assessment: 74 y.o. female with PMHx notable for Afib (taking ASA, previously on apixaban-stopped taking after IPH in April 2024), CHRISTOPHER, HLD, BMI of 36, prior IPH 04/2024 who presented to hospital 09/16/24 for placement of Watchman with cardiology. She developed headaches and nausea post op and CT scan noted large R bbvpqxgr-izspbap-mkbhhrlxz IPH. Repeated CTH wo contrast overnight showing [...] primary For questions please call NSGY pager [phone] Dodie Deleon MD Clinical Documentation Improvement: Active [...] questions were answered. Sushila Espinal MD PhD [facility] Section of Neurosurgery Department of Surgery [facility] [email or web address] * Elvin Vallecillo RCP - 09/17/2024 [...] Colbert PA-C Interventional Cardiology Structural Heart Team [facility] Pager [phone] documented in this encounter H&P Notes * [...] 0.63) performed by Sushila Espinal MD at [facility] MAIN OR PRO LAPAROSCOPY W TOT HYSTERECTUTERUS <=250 GRAM W TUBE/OVARY N/A 04/23/2024 LAPAROSCOPY, TOTAL HYST, UTERUS<250GMS, REM TUBE &/OR OVARY (WRVU 15) performed by Xiomara Burkett MD at [facility] MAIN OR PRO OPEN SKULL EVAC INTRACEREBR BLOOD Right 09/16/2024 @CRANI-HEMATOMA EVACUATION, INTRACEREBRAL (WRVU 28.09) performed by Sushila Espinal MD at [facility] MAIN OR PRO PERQ CLSR TCAT L ATR APNDGE W/ENDOCARDIAL IMPLNT N/A 09/16/2024 @PERQ TRANSCATH CLOSURE LEFT ATRIAL APPENDAGE W ENDOCARDIAL IMPLANT, INC RAD S&I (WRVU 14) performed by Duane Causey MD at [facility] CATH LABS Allergy: Allergies Allergen Reactions [...] brain wo contrast -CTA head & neck -PT/OT/WOOD FLOOR LAYER -Neurosurgery consulted # Leukocytosis # Pneumonia - on Zosyn (09/24 - 09/29) - CBC - ID consult - C. Diff negative # Prophylaxis -heparin 5000units SC Q8H -RBOs -SCDs # Supportive care -NPO -Tylenol PRN -Up with assistance # FULL code Stroke Navigator Completed: Yes Umm Goodrich MD Vascular Neurology Pager [phone] [facility] Swallow Screen: This screen is to be [...] diet as medical provider deems appropriate. Consider WOOD FLOOR LAYER consult for full evaluation and diet recommendations. [...] 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 today for watchman procedure subsequently developing a [...] 15) performed by Xiomara Burkett MD at [facility] MAIN OR Social History Tobacco Use [...] 24 hour(s)) Type and Screen Future Surgery, [facility] SAME DAY PROGRAM ONLY) Result Value Ref Range PATIENT HISTORY Found Expires at 2359 on: 09-19-2024 ABORH Type O POSITIVE ANTIBODY SCREEN AUTOMATED Negative T&S only valid at [facility] LAB CBC (with Diff) Result Value Ref [...] Information Issued Product Identification APH-PLTS Unit Number [id number] Product Code [id number] Unit Blood Type APOS Specimen Expiration Date Volulme 236 Issue Date / Time [id number] POC, GLUCOSE Result Value Ref Range Glucometer, POC 170 65 - 199 mg/dL Prepare RBC Result Value Ref Range Status Information Returned Product Identification RBC Unit Number [id number] Product Code [id number] Unit Blood Type OPOS Specimen Expiration Date Volulme 350 Issue Date / Time Status Information Returned Product Identification RBC Unit Number [id number] Product Code [id number] Unit Blood Type OPOS Specimen Expiration Date Volulme 350 Issue Date / Time Status Information Returned Product Identification RBC Unit Number [id number] Product Code [id number] Unit Blood Type OPOS Specimen Expiration Date Volulme 350 Issue Date / Time Imaging: Results for orders placed or performed during the hospital encounter of 09/16/24 CT Head wo Contrast (Generic) (Exam End: 09/16/2024 5:26 PM) Result Value WORKSTATION ID [id number] Narrative EXAMINATION: CT HEAD WO CONTRAST (GENERIC) [...] who have questions please contact the health healthcare consultant that requested your imaging first. Cardiac Catheterization (Exam End: 09/16/2024 3:16 PM) Narrative [facility] Cardiac Catheterization/Intervention Report Patient Name: [place] Brunolie Adriana Procedure Date: 09/16/2024 A #: [id number] Primary Physician: Duane Causey V Case #: [id number] File Name: [id number] Catheterization Order Number: [id number] [facility] Final Report [place], [place] Patient Name: Lucero Smithson ID#: [id number] : 1950 Procedure Date: September 16, 2024 [...] was designated as ASA Class III. The [facility] clinical frailty scale is 5: Mildly Frail. Diagnostic Tests: Prior Coronary Angiography: LV ejection fraction within 6 months is 75%. Electrocardiography: EKG was assessed by ECG. Medications Prior to Procedure: Aspirin and Calcium Channel Blocking Agent. Indications for Diagnostic Cath: The priority of the diagnostic procedure was Elective. The indication for the photonic laboratory technician visit is cardiac arrhythmia. Chest pain symptom assessment was: Asymptomatic. Technique: A 17Fr sheath was inserted in the right femoral vein utilizing the Seldinger technique. The left atrium was injected utilizing a 6Fr PIGTAIL catheter. Left atrial pressure was performed with a 6Fr ANGLED PIGTAIL catheter. Transseptal puncture was performed with an 8.5Fr Altavoz NRG RF Needle. 7,000 units of heparin [...] for atrial fibrillation. The patient had a [id number] score of 4, a HAS-BLED score of [...] Watchman FLX Closure Device 27 mm (s/l/n [id number]) was prepared and deployed using standard technique. [...] to nor was it given in the photonic laboratory technician. Recommended anti-platelet/anti-thrombotic regimen: Continue aspirin 81 mg daily for indefinitely. These recommendations are made at the time of the intervention. Patient and provider preferences or a changing clinical situation may require modification of this regimen. [facility] [facility] for questions. Conclusions: * Successful [...] Dispo: NCCU ADRIANA Shay NCCU team pager #[phone] * Amari Colbert PA - 09/16/2024 4:15 PM EDTSummary: Post Procedure Admit H&P [facility] Interventional Cardiology Structural [...] primary care cardiology provider Iliana Carpenter APRN ([facility] cards/[place] cards) for evaluation of cardiac hemodynamics, [...] suffered a hemorrhagic stroke shortly after elective hspt tutor / hysterectomysurgery. HAS-BLEd > 3. She continues [...] a Transseptal puncture was performed using the Altav[employer] VersaCross System. A WM TruSteer sheath was tracked across the inter-atrial septum without difficulty. An angled angiographic pig tail catheter (6Fr) was then positioned in the ANGUS through which an angiogram was performed showing anatomy c/w MONICA findings (LA = 12 mmHg). A Watchman FLX-Pro 27 mm ([id number]) was prepped according to the Vice President Global Advertising Sales's IFU with special attention to elimante all [...] ADRIANA Phillip Interventional Cardiology 09/16/24 4:[address] [facility] Pager: [phone] * Amari Colbert PA - 09/16/2024 1:18 PM EDT Patient Name: Lucero Bruno Patient Age: 74 y.o. Birthdate: 1950 Admit date: 09/16/2024 Attending Physician: Duane Lazcano MD [facility] Interventional Cardiology Structural Heart Program Adult Pre-Procedure H&P Update: Left Atrial Appendage Occlusion, percutaneous Lucero Bruno [id number] 1950 Chief Complaint: Atrial fibrillation, elevated stroke risk Inability to tolerate systemic anticoagulation HPI: Lucero Bruno is a 74 y.o. female referred for cardiac catheterization by her primary care cardiology provider Iliana Carpenter APRN ([facility] cards/[employer] cards) for evaluation of cardiac hemodynamics, left [...] suffered a hemorrhagic stroke shortly after elective hspt tutor / hysterectomysurgery. HAS-BLEd > 3. She continues [...] SO chase here with her Live in [place], [place] Outpatient Medications Marked as Taking for [...] ADRIANA Phillip Interventional Cardiology 09/16/24 1:[address] [facility] Pager: [phone] documented in this encounter Procedure Notes * [...] related orders have been discontinued. Please page [phone] with questions regarding this patient. ADRIANA Leonardo * Bonnie Vazquez PA - 09/21/2024 12:55 PM EDTAssociated Order(s): INTUBATION Intubation Procedure Note Reason for Intubation: Airway obstruction and Airway protection. Procedure Diagnosis: Respiratory distress [facility] of Procedure[facility] Risks and Benefits: The risks and benefits [...] status comments: First attempt by this medical underwriter. Encountered lots of oral secretions with edematous [...] Juanis Doshi MD 09/17/2024 Associated attestation - Mukund Espinosa MD - 09/17/2024 3:35 PM EDT [...] agent and s/o Chase San as alternate [phone] ( this is pts cell phone) * Care Management - Anupama Pastrana RN - 10/11/2024 4:15 PM EST OFFICE OF CARE MANAGEMENT PROGRESS NOTE LOS: Hospital Day 25 days Chart reviewed, care reviewed with primary team and at interdisciplinary rounds. 10/11/2024 patient offered and accepted SNF bed at [facility] in [place], [place]. Jose Pollard notified of same and in agreement with the plan. Medical Decision Maker: DPAZIZA-HC, Surrogate *surrogate is jose Pollard Guardianship needed: 0 Surrogate Name: Don Pollard Surrogate Contact Information: cell: [phone] Financial Decision Maker: Self Functional status prior [...] Insurance: MEDICAID [place] Last Physical Therapy Recommendation: penitentiary facility with to be determined (10/11/24 1001) Last Occupational Therapy Recommendation: penitentiary facility with to be determined (10/11/24 8507) Plan for discharge is: Pending Hospital Course and PT/OT Recommendations Outpatient Agency/Support Group Needs: Clinic(s) Agency Choices: [facility] Agency Referrals: Not Applicable Transportation: family or friend will provide Barriers to discharge: Global: Discharge planning Global Comment: the patient may benefit from an inpatient rehab stay prior to returning home. Psychosocial: *lengthy recovery anticipated; appreciative of support from [facility] care teams Supports: *RANDY Olosn, has pets at home ICU Needs: none / ready for downgrade *no longer with ICU needs Plan: Patient is medically ready per medical team. Plan going forward is: discharge to [facility] 10/12/2024. Anticipated Date of Discharge: 10/12/2024 KIKO Nguyen, RN ACM-RN [facility] medical corps officer * Care Management - Anupama Pastrana RN - 10/11/2024 12:50 PM EST OFFICE OF CARE MANAGEMENT PROGRESS NOTE LOS: Hospital Day 25 days Chart reviewed, care reviewed with primary team and at interdisciplinary rounds. Medical Decision Maker: DPAZIZA-HC, Surrogate *surrogate is jose Pollard Guardianship needed: 0 Surrogate Name: Don Pollard Surrogate Contact Information: cell: [phone] Financial Decision Maker: Self Functional status prior [...] Insurance: MEDICAID [place] Last Physical Therapy Recommendation: penitentiary facility with to be determined (10/11/24 1001) Last Occupational Therapy Recommendation: penitentiary facility with to be determined (10/06/24 1328) Plan for discharge is: Pending Hospital Course and PT/OT Recommendations Outpatient Agency/Support Group Needs: Clinic(s) Agency Choices: [facility] Agency Referrals: I have met with the patient and son Don Pollard who has requested to have referrals be expanded to: [facility] ([place]) [address] [place] [address] [facility] ([place]) [address] [place] [address] [facility] [address] [place] [address] Note routed to a Casting Supervisor who will communicate referrals to facilities and provide any required information. Transportation: family or friend will provide v medical transportation Barriers to discharge: Global: Discharge planning Global Comment: the patient may benefit from an inpatient rehab stay prior to returning home. Psychosocial: *lengthy recovery anticipated; appreciative of support from [facility] care teams Supports: *RANDY Olson, has pets at home ICU Needs: none / ready for downgrade *no longer with ICU needs Plan: Patient is medically ready per medical team. Plan going forward is: expand SNF referrals Anticipated Date of Discharge: 10/15/2024 Anupama Pastrana, MSN, RN ACM-RN [facility] medical corps officer * Plan of Care - Latosha Winston RN - 10/11/2024 11:21 AM EST Pt is A/O x3, currently on RA however requires NC intermittently has hx of CHRISTOPHER but refuses CPAP. VSS, Pain appears controlled today reports trazadone helped her sleep last night. PT OOB to chair today with lift and PT/OT, WOOD FLOOR LAYER to see as well. Tolerating bolus TF. [...] TF adjusted to bolus 10/07; followed by WOOD FLOOR LAYER (PEG placed 10/04) Appears more interactive; participates in conversation appropriately. Family/SO remain very supportive and involved Guardianship needed: 0 Surrogate Name: Don Pollard Surrogate Contact Information: cell: [phone] Financial Decision Maker: Self Functional status prior [...] Insurance: MEDICAID [place] Last Physical Therapy Recommendation: penitentiary facility with to be determined (10/06/24 1324) Last Occupational Therapy Recommendation: penitentiary facility with to be determined (10/06/24 1328) Plan for discharge is: Pending Hospital Course and PT/OT Recommendations Outpatient Agency/Support Group Needs: Clinic(s) Agency Choices: [facility] clinic Agency Referrals: I have met with the financial services representative, who has requested to have referrals be expanded. First choice would be [facility] in [place], [place]; bed update requested in [place]. Please refer to additional progress note 10/08/2024 for expanded referral choices. Note routed to a Casting Supervisor who will communicate referrals to facilities and provide any required information. Transportation: family or friend will provide Barriers to discharge: Global: Discharge planning Global Comment: the patient may benefit from an inpatient rehab stay prior to returning home. Psychosocial: *lengthy recovery anticipated; appreciative of support from [facility] care teams Supports: *son RANDY Ochoa, has pets at home ICU Needs: none / ready for downgrade *no longer with ICU needs Plan: Patient is medically ready per medical team. Plan going forward is: continue to pursue SNF bed Anticipated Date of Discharge: 10/11/2024 Anupama Pastrana, MSN, RN OCM-RN [facility] medical corps officer * Consult Note - Sonia Mac APRN [...] op and CT scan noted large R mzywyjiw-dpawipd-msechmmhv IPH. Now s/p R craniotomy for IPH [...] free water 30 mL FEEDING TUBE Q4H [facility] Diet Tube Feed: Nutren 1.5 (standard, energy-dense) (1.5 kcal/mL) Per G Tube 4 Times Daily protein powder 2 Scoop Per G Tube TID insulin lispro 2-12 Units Subcutaneous Q4H [facility] insulin lispro 0-8 Units Subcutaneous 4 Times Daily amLODIPine 5 mg Per G Tube Daily dilTIAZem 90 mg Per G Tube Q6H [facility] multivitamin with minerals 1 tablet Per G [...] op and CT scan noted large R xxtkozmr-rsuomhc-iykvzypld IPH. Now s/p R craniotomy for IPH [...] Mac APRN Endocrinology Diabetes Management Service Pager: [phone] Weekends please page [phone] 80 minute visit was spent in counseling [...] Insurance: MEDICAID [place] Last Physical Therapy Recommendation: penitentiary facility with to be determined (10/04/24 1025) Last Occupational Therapy Recommendation: penitentiary facility with to be determined (10/04/24 0950) Plan for discharge is: Pending Hospital Course and PT/OT Recommendations Outpatient Agency/Support Group Needs: Clinic(s) Agency Choices: [facility] clinic Agency Referrals: I have met with the financial services representative, who has requested to have referrals be expanded to: [facility] [address] [place] [address] [address] [facility] [address] [place] [id number] This note medical underwriter spoke with [facility] admission coordinator (Akiko) who stated that there are no female SNF beds available at this time. Akiko will update the referral placed in [facility]. Jose Ochoa updated with the above; as such, agreeable to expand referrals. Note routed to a Casting Supervisor who will communicate referrals to facilities and [...] Discharge: 10/08/2024 Anupama Pastrana, MSN, RN ACM-RN [facility] medical corps officer * Plan of Care - Anabel De La Garza RN - 10/05/2024 1:42 PM EST OUTCOME EVALUATION NOTE: OUTCOME SUMMARY: Pt VSS on RA, no complaints of pain, tolerating TF well, Flexi removed due to decreased output, Neuro exam unchanged from previous day, no new orders today. PLAN MOVING FORWARD: Q2 VS, NC & I&O PT/OT/WOOD FLOOR LAYER INDIVIDUALIZED FALL PREVENTION INTERVENTIONS: Patient-specific fall risk [...] MOVING FORWARD: Q2 VS, NC & I&O PT/OT/WOOD FLOOR LAYER q4h FSG INDIVIDUALIZED FALL PREVENTION INTERVENTIONS: Patient-specific [...] MOVING FORWARD: Q2 VS, NC & I&O PT/OT/WOOD FLOOR LAYER INDIVIDUALIZED FALL PREVENTION INTERVENTIONS: Patient-specific fall risk [...] Role Xenia Acuña X-Ray Technologist Brad Lubin ends breakage clerk Nurse Jony Sampson MD Attending Post-operative diagnosis/Indication: [...] Butler Urgency Level: Call Me Callback Number: [phone] The following Message was sent: [Call Me] - Callback:[phone] Damion Pupils sluggish, L is 5cm, [...] if indicated. * Consult Note - Rosalinda Herrera, RN - 09/30/2024 12:35 PM EST Images from the original note were not included. Certified Wound Care Nurse Note Situation: Asked to see Lucero Bruno by [facility] asbestos surveyor for skin concerns of the right butt, [...] chat or the wound care team at [phone] or pager [phone] with skin and wound care concerns or [...] satisfactory saturations. Working with and followed by PT/OT/WOOD FLOOR LAYER. Ongoing dysphagia concerning; PEG conversation planned. Labs [...] Insurance: MEDICAID [place] Last Physical Therapy Recommendation: penitentiary facility with to be determined Last Occupational Therapy Recommendation: penitentiary facility with to be determined Plan for discharge is: Pending Hospital Course and PT/OT Recommendations Outpatient Agency/Support Group Needs: Clinic(s) Agency Choices: [facility] clinic Agency Referrals: Not Applicable; SNF referral to [facility] in [place], [place]. No bed offer at this time. ADDENDUM 09/28/2024: VM left for Admissions/SW at [facility] requesting update. May need to expand referrals if [facility] declines. May need to expand referral base; son lives in [place], [place] but SO Chase (who has health issueshimself) lives in [place] Further discussion planned. Transportation: family or [...] Discharge: 09/30/2024 Anupama Pastrana MSN, RN ACM-RN [facility] medical corps officer * Plan of Care - Matheus Coates [...] as Appropriate) * Plan of Ruma - Abdulkadir Lala RN - 09/28/2024 6:42 [...] no output since 0800, NPO give meds, WOOD FLOOR LAYER eval approved ice chips intermittently (RN did [...] date: 09/16/2024 Attending: Dr. Paul CC: [facility] Date last well known:: 09/16/24 Time last [...] brisk reflexes. Labs: I/O 24 Hours: 09/26 0701 - 09/27 07 In: 2959.3 [I.V.:529.3] Out: 5410 [Urine:4385] I/O this shift: In: 330 [I.V.:60; NG/GT:160; IV Piggyback:50] Out: 130 [Urine:80; Stool:50] Recent Labs 09/27/2413709/26/241 09/25/24 0429 09/24/24 0500 09/23/24 0101 WBC [...] 153 179 185 202* Recent Labs 09/27/2413709/26/2435 09/26/241 09/25/24 0429 CALCIUM 8.5 8.1* 7.9* 8.4* MAGNESIUM 0.91 -- 0.78 0.91 PHOS 4.0 3.3 3.1 3.4 Recent Labs 09/26/2435 09/23/24 0756 AST 28 18 ALT 72* 56* ALKPHOS 81 80 BILITOT 0.4 0.3 BILIDIR <0.2 <0.2 Recent Labs 09/26/24 0635 CK 78 No results for input(s): PHART, KXI5ZMZ, PO2ART, PZA0LPS in the last 168 hours. No results [...] 09/16/2024 5:26 PM) Result Value WORKSTATION ID [id number] Impression Interval expansion of now large right-sided [...] who have questions please contact the health healthcare consultant that requested your imaging first. Head wo Contrast (Generic) (Exam End: 09/16/2024 11:21 PM) Result Value WORKSTATION ID [id number] Impression CT head: 1. Interval craniotomy with [...] who have questions please contact the health healthcare consultant that requested your imaging first. Venogram Brain (Exam End: 09/16/2024 11:21 PM) Result Value WORKSTATION ID [id number] Impression CT head: 1. Interval craniotomy with [...] who have questions please contact the health healthcare consultant that requested your imaging first. Chest One View (Exam End: 09/16/2024 11:00 PM) Result Value WORKSTATION ID [id number] Impression Satisfactorily positioned enteric and endotracheal tubes. Left lower lobe atelectasis versus pneumonia. Thank you for letting us participate in the care of this patient. If you are a health care provider and have any questions regarding this report, please contact the number below. For patients who have questions please contact the health healthcare consultant that requested your imaging first. Abdomen 1 view (Generic) (Exam End: 09/16/2024 11:00 PM) Result Value WORKSTATION ID [id number] Impression Satisfactorily positioned enteric and endotracheal tubes. Left lower lobe atelectasis versus pneumonia. Thank you for letting us participate in the care of this patient. If you are a health care provider and have any questions regarding this report, please contact the number below. For patients who have questions please contact the health healthcare consultant that requested your imaging first. Head wo Contrast (Generic) (Exam End: 09/17/2024 4:51 AM) Result Value WORKSTATION ID [id number] Impression Increased size and density of dominant [...] who have questions please contact the health healthcare consultant that requested your imaging first. Chest One View (Exam End: 09/17/2024 2:13 PM) Result Value WORKSTATION ID [id number] Impression 1. No focal opacity in lung [...] who have questions please contact the health healthcare consultant that requested your imaging first. Chest One View (Exam End: 09/18/2024 8:43 AM) Result Value WORKSTATION ID [id number] Impression Tubes and lines as described. Blunting of the left costophrenic angle suggests tiny layering left effusion with associated left basilar consolidation/atelectasis Thank you for letting us participate in the care of this patient. If you are a health care provider and have any questions regarding this report, please contact the number below. For patients who have questions please contact the health healthcare consultant that requested your imaging first. Abdomen 1 view (Generic) (Exam End: 09/18/2024 12:31 PM) Result Value WORKSTATION ID [id number] Impression Dobbhoff tube tip along the greater curve of the stomach. Thank you for letting us participate in the care of this patient. If you are a health care provider and have any questions regarding this report, please contact the number below. For patients who have questions please contact the health healthcare consultant that requested your imaging first. Brain wwo Contrast (Generic) (Exam End: 09/19/2024 5:43 PM) Result Value WORKSTATION ID [id number] Impression Unchanged size of large right cerebral hemisphere ICH status post partial evacuation. Numerous small foci of decreased acute infarction both along and separate from the site of hemorrhage. These foci are present in both cerebral hemispheres and have a pattern most consistent with embolic infarction. No evidence of REELER OPERATOR malignancy Thank you for letting us participate in the care of this patient. If you are a health care provider and have any questions regarding this report, please contact the number below. For patients who have questions please contact the health healthcare consultant that requested your imaging first. Head wo Contrast (Generic) (Exam End: 09/21/2024 3:50 AM) Result Value WORKSTATION ID [id number] Impression Stable hemorrhage right temporal, parietal, right [...] who have questions please contact the health healthcare consultant that requested your imaging first. Abdomen 1 view (Generic) (Exam End: 09/21/2024 2:01 PM) Result Value WORKSTATION ID [id number] Impression Dobbhoff tube and enteric tube sidehole [...] who have questions please contact the health healthcare consultant that requested your imaging first. Chest One View (Exam End: 09/21/2024 2:01 PM) Result Value WORKSTATION ID [id number] Impression ET tube with tip projecting approximately [...] who have questions please contact the health healthcare consultant that requested your imaging first. Head wo Contrast (Generic) (Exam End: 09/22/2024 4:02 AM) Result Value WORKSTATION ID [id number] Impression Stable head CT status post removal of subcutaneous drain. No new or enlarging hemorrhage. Stable pattern of mass effect Thank you for letting us participate in the care of this patient. If you are a health care provider and have any questions regarding this report, please contact the number below. For patients who have questions please contact the health healthcare consultant that requested your imaging first. Angiogram Chest for Pulmonary Embolus w Contrast (Exam End: 09/26/2024 1:37 PM) Result Value WORKSTATION ID [id number] Impression 1. No pulmonary embolism. 2. Pulmonary [...] who have questions please contact the health healthcare consultant that requested your imaging first. Head wo Contrast (Generic) (Exam End: 09/26/2024 1:37 PM) Result Value WORKSTATION ID [id number] Impression 1. Stable right-sided parenchymal and subdural [...] who have questions please contact the health healthcare consultant that requested your imaging first. Abdomen & Pelvis w Contrast (Exam End: 09/26/2024 1:37 PM) Result Value WORKSTATION ID [id number] Impression 1. No pulmonary embolism. 2. Pulmonary [...] who have questions please contact the health healthcare consultant that requested your imaging first. Assessment and [...] to follow Please page Vascular Neurology at #[phone] with any questions. Umm Goodrich MD Neurology, PGY3 [place] [address] Associated attestation - Dinesh Bauer MD - [...] file). * Initial Assessments - Areli Hathaway, WOOD FLOOR LAYER - 09/27/2024 11:31 AM EST Speech Therapy Clinical Swallow Evaluation Patient Profile: Lucero Bruno is a 74 y.o. female with PMHx of A-fib, CHRISTOPHER, HLD, and prior IPH (04/2024) who presented to [facility] on 09/16/2024 for placement of Watchman with cardiology. She developed headaches and nausea post-operatively and was found to have a large R bxzsheio-tuqlfho-tcgapfiqg IPH, now s/p craniotomy. Patient was intubated from 09/16-09/21 with extubation complicated by stridor requiring re-intubation from 09/21-09/26 (11 days total). WOOD FLOOR LAYER was consulted on 09/21 per CVA protocol [...] Comments Thin liquids X Water via swab [place] thick liquids Honey thick liquids Pureed solids [...] ice chips for comfort and practice between WOOD FLOOR LAYER sessions. We will continue to perform serial [...] aspiration pneumonia Pt will benefit from continued WOOD FLOOR LAYER services while hospitalized Speech Therapy Goals: (To be met by discharge) Pt will tolerate the least restrictive diet without further respiratory decompensation. NEW Pt / caregiver will be independent with aspiration precautions, diet modifications, and safe swallowing strategies. NEW Plan: Therapy Frequency (WOOD FLOOR LAYER Eval): 3-5 times/wk Patient is in agreement with the plan of care. Total Minutes (Speech Language Pathology): 35 Thanks for the opportunity to contribute to this patient's care. Please feel free to page me with any questions or concerns. Areli Hathaway MS, CCC-WOOD FLOOR LAYER Speech-Language Pathologist Inpatient Rehabilitation Pager # [phone] * Plan of Care - Jose Franco [...] with you. Please call with questions, pager [phone]. Discussed with attending, Dr. Gabriel. Chino Washburn [...] on the date of service on the cgkn-ds-fifb encounter, chart review, clinical decision making, documentation, and coordination of care. Rae Gabriel MD Professor, Department of Medicine Page [phone] * Plan of Care - Eleazar Mc [...] to be determined Last Occupational Therapy Recommendation: penitentiary facility with to be determined Patient is insured through: Primary Insurance: MEDICARE Payor: MEDICARE / Plan: MEDICARE PART A & B / Product Type: *No Product type* / Secondary Insurance: MEDICAID [place] Prescription Coverage: Yes [facility]erred [facility]acy: [facility] [address] [address] Plan for discharge is: Pending Hospital Course and PT/OT Recommendations Agency Referrals & Follow-up Care: Based on discussions with the multi-disciplinary healthcare team, the patient would benefit from SNF level of care at discharge. I have met with the financial services representative (son Don Pollard) to: discuss discharge planning needs. provide the [facility], Office of Care Management letter from the Executive Relations Specialist pertaining to rehab referrals. provide a letter describing our affiliations within the [facility] and educate about their right to choose where referrals are sent. provide the CMS Star Quality Rating handout. review the different levels of rehab including SNF, swing, and acute. provide a list of facilities within their preferred geographic area. request that they provide at least three choices for referral. They have requested referrals to: [facility] [place] [address] Note routed to a Casting Supervisor who will communicate referrals to facilities and provide any required information. Transportation: family or friend will provide Barriers to discharge: Discharge planning Plan going forward: Care Management will continue to follow and assist with discharge planning and coordination of care as indicated. Anticipated Date of Discharge: 09/27/2024 v pending hospital course Anupama Pastrana, MSN, RN ACM-RN [facility] medical corps officer * Plan of Care - Hank Oquendo [...] 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 today for watchman procedure subsequently developing a [...] 0.63) performed by Sushila Espinal MD at [facility] MAIN OR PRO LAPAROSCOPY W TOT HYSTERECTUTERUS <=250 GRAM W TUBE/OVARY N/A 04/23/2024 LAPAROSCOPY, TOTAL HYST, UTERUS<250GMS, REM TUBE &/OR OVARY (WRVU 15) performed by Xiomara Burkett MD at [facility] MAIN OR PRO OPEN SKULL EVAC INTRACEREBR BLOOD Right 09/16/2024 @CRANI-HEMATOMA EVACUATION, INTRACEREBRAL (WRVU 28.09) performed by Sushila Espinal MD at [facility] MAIN OR Subjective: Pt received in [...] wrist restraints Vision & Perception: corrective lenses consulting software engineer Communication: communicated through thumbs up/down and [...] to be determined Anticipated Discharge Disposition (OT): [facility] Other Recommendations: EPM Level 1: HOB [...] 2-3 times/wk Total Minutes, Occupational Therapy: 18 ([phone]) Planned OT interventions: Role of occupational therapy/rehabilitation, [...] They/Them Occupational Therapy Rehabilitation Department Pager # [phone] * Care Management - Xenia Crane RN [...] Outpatient Agency/Support Group Needs: Clinic(s) Agency Choices: [facility] Agency Referrals: Not Applicable Transportation: family [...] 09/27/2024 Office of Care Management Float / machine ceramic coater attic blower [email or web address] Pager #[phone] * Plan of Care - Seth Wade [...] Outpatient Agency/Support Group Needs: Clinic(s) Agency Choices: [facility] clinic Agency Referrals: DETECTIVE CAPTAIN services- will [...] of Discharge: 09/27/2024 Office of Care Management pipe and tank fabricator medical corps officer Stephanie Louise MSN RN [email or web address] [phone] pager [phone] * Plan of Care - Vernon Leos RN - 09/21/2024 1:53 AM EDT Summary of hospitalization: Lucero Bruno is a 74 y.o. 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 today for watchman procedure subsequently developing a [...] 0.63) performed by Sushila Espinal MD at [facility] MAIN OR PRO LAPAROSCOPY W TOT HYSTERECTUTERUS <=250 GRAM W TUBE/OVARY N/A 04/23/2024 LAPAROSCOPY, TOTAL HYST, UTERUS<250GMS, REM TUBE &/OR OVARY (WRVU 15) performed by Xiomara Burkett MD at [facility] MAIN OR PRO OPEN SKULL EVAC INTRACEREBR BLOOD Right 09/16/2024 @CRANI-HEMATOMA EVACUATION, INTRACEREBRAL (WRVU 28.09) performed by Sushila Espinal MD at [facility] MAIN OR Status: Stable Subjective/Objective: gesturing to have ETT removed Assessment: see DocFlow for details, otherwise significant highlights include the following: N/pain: [id number] (E4V1M6). Anxiolytic gtt titrated to RASS 0Neuro [...] approx with stacey, scant dried old blood, COPIER REPAIR TECHNICIAN. Endo: FSBS q4h, coverage via standing/SSI, see eMAR. ID: Afebrile. Abx/virals: none. Noting uptrending WBC, LD: see Avatar. SG drain with minimum sanguinous output (<20mL over 12h) Act: T&R q2h whilst in bed, pROM LUE/LLE q2h. Social: no callers/visitors overnight. Plan/Recommendation: CTH result pending Order PT/OT/WOOD FLOOR LAYER Potential extubation today Monitor for signs of [...] Initial Assessment with patient's son, Don Pollard [phone], andchart review. Patient is not medically stable [...] Employment / Comments: Financial Source of Income: pension/senior living, social security Financial / Environmental Concerns: Utilities [...] Support: adult child(yen), significant other Techniques to [place] with Loss/Stress/Change: medication Reaction to Health Status: [...] primary care cardiology provider Iliana Carpenter APRN ([facility] cards/[place] cards) for evaluation of cardiac hemodynamics, left atrial appendage anatomy, and implantation of left atrial appendage occlusion device (Watchman FLX) if indicated. Patient is unable to respond to questions at this time. RAMP SUPERVISOR reviewed medical chart and completed the Initial [...] and use the stairs. Social Work Plan: RAMP SUPERVISOR and medical corps officer will continue to follow patient with the medical team through rounds and updated medical notes. RAMP SUPERVISOR will continue to communicate with patient and [...] surrogate would be surrogate decision maker per [place] surrogate decision making law. (Only good for 180 days) Any patient receiving care in [place] must abide by [place] law. The hierarchy for surrogate decision making is: (a) Patient???s spouse or civil union partner unless there is a divorce proceeding, separation agreement, or restraining order limiting that person???s relationship with the patient. (b) Any adult son Don Pollard ([phone]) or daughter of the patient. (c) Either parent of the patient. (d) Any adult brother or sister of the patient. (e) Any adult grandchild of the patient. (f) Any grandparent of the patient. (g) Any adult aunt, uncle, niece, or nephew of the patient. (h) A close friend of the patient. (i) The agent with financial power of corporate associate attorney or a conservator appointed in [...] Arrangements: home/apartment/condo. Accessibility Concerns:single family residence in [place], [place]. multi level. 5 ZAIN.. In the last 12 months, was there a time when you were not able to pay the mortgage or rent on time?: No In the past 12 months, how many times have you moved where you were living?: 0 At any time in the past 12 months, were you homeless or living in a senior living (including now)?: No In the past 12 months has the electric, gas, oil, or water [employer] threatened to shut off services in your [...] Home Address confirmed as: [address] [facility] [address] 09/17/2024 Physical Address: [address] [place] [address] , [place] [address] Social & Family Supports: All names listed below confirmed with patient as current and correct Extended Emergency Contact Information Primary Emergency Contact: Don Pollard Mobile Relation: Child Current Care Provided by: self, other (see comments) ([facility] nursing care team) Provides Primary Care For: no one, unable/limited ability to care for self Caregiver if needed: unable to assess Quality of Family relationships: helpful, involved, supportive (son Don Pollard at bedside) Community Resources being provided currently: clinic(s) (followed by [facility] Cardi) Behavioral Health History: history of stroke [...] Other Pertinent/Service Specific Information: patient was at [facility] in 04/2024 with similar presentation. Health/Prescription Coverage: Primary Insurance: MEDICARE Payor: MEDICARE / Plan: MEDICARE PART A & B / Product Type: *No Product type* / Secondary Insurance: MEDICAID [place] ONLY if patient has Medicare A&B - Does this patient have secondary insurance?: Yes ; Prescription Coverage: Yes Preferred [facility]acy: [id number] - [place], [place] - [address] [address] [place] Status: Patient is a : No Primary Care Provider confirmed: Leila Manjarrez [phone] Patient/Caregiver Goals of Treatment: to recover from Right IPH and return home Potential Needs for Transition of Care: home health care, rehabilitation services, outpatient care (home VNA v inpatient therapy) Agency Referrals: Not Applicable at this time; further conversation planned Transportation: no concerns Transportation Anticipated: family or friend will provide, ambulance Concerns to be Addressed: discharge planning Assessment: Patient is admitted to [facility] (pager [phone]) service for large R IPH Plan going [...] as indicated. Anupama Pastrana, MSN, RN ACM-RN [facility] medical corps officer * Consult Note - Eri Stovall APRN - 09/17/2024 8:36 AM EDT Images from the original note were not included. 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 VBG (Venous Blood Gas) No results for input(s): PHVEN, BNH9IRR, PO2VEN, VOF7YSC, LACTATEVEN in the last 168 hours. Mixed Venous Sat No results for input(s): R3TOTW1 in the last 168 hours. Vitals Last [...] impregnated cap applied 09/16/242208 Phlebitis 0-->no symptoms 10/25/24 0600 Infiltration 0-->no symptoms 09/17/24599 Site Signs/Symptoms no swelling;no redness 09/17/24 06 PIV 09/16/24 221 20 gauge metacarpal vein [...] Blood Gas) No results for input(s): PHART, JMW8EHF, PO2ART, GMB6IAQ, LACTATEVEN, NVM5YPK, PFRATIOART2 in the last 168 hours. VBG (Venous Blood Gas) No results for input(s): PHVEN, OXI6RZH, PO2VEN, GZH4WCS, LACTATEVEN in the last 168 hours. Mixed Venous Sat No results for input(s): V9PSMC9 in the last 168 hours. Diagnostics: TTE [...] appearance of pericardium. Single atrial septostomy with zqbt-pw-egcbd flow. See report for additional findings. Medications Scheduled Meds: insulin lispro 1-4 Units Subcutaneous Q4H [facility] polyethylene glycoL (MIRALAX) oral powder 17 g Oral Daily chlorhexidine 15 mL Oral BID famotidine 20 mg Per NG tube BID docusate sodium 100 mg Per NG tube BID And sennosides 17.6 mg Per NG tube BID dilTIAZem 60 mg Per NG tube Q6H [facility] Continuous Infusions: propofoL 20 mcg/kg/min (09/17/24 0745) sodium chloride 0.9% 75 mL/hr (09/17/24 0645) [...] details and final recommendations. Eri Stovall, MSN, CATERING CHEF-BC, RUBBER THREAD SPOOLER Structural Heart Pager [phone] 09/17/2024 * Consult Note - Sol Hazel, [...] discuss plan with provider Neurocritical Care Pager #[phone] . Current Nutrition Regimen: Active Orders Diet [...] encounter: 88.7 kg (195 lb 8.8 oz). [place] Body Weight (IBW) (kg): 45.45 Wt Readings [...] preventing accurate assessment. Malnutrition Diagnosis: Not identified (Maribel, JPEN J Parenteral Enteral Nutr. 2012 March; 36(3): 273-83) Nutrition to continue to follow up while inpatient Sol Hazel MS, RD, LD Clinical Nutrition * Brief Op Note - Crys Suarez MD - 09/16/2024 9:37 PM EDT Brief Operative Note Patient Name: Lucero Bruno : [id number] MR#: [id number] Case Date: 09/16/2024 Surgeon: Surgeons and Role: [...] Espinal MD - 09/16/2024 5:[address] [facility] Operative Note Patient Name: Lucero Bruno : [id number] MR#: [id number] Case Date: 09/16/2024 Surgeon: Surgeons and Role: [...] 8.1 by 5.0 by 6.7 cm right nnjtjru-jbvkjvb-wqukqfrhf intraparenchymal hematoma with 10.5 mm midline shift. [...] was completely shaved and pinned in the [place] head frame and secured to the operating [...] and covered, the patient was removed from [place] head fixation transferred to her ICU bed, [...] Thompson RN - 09/16/2024 5:33 PM EDT [facility] RESPONSE TEAM NOTE Name: Lucero Bruno Age: 74 y.o. Sex; Female Date of : 1950 Responding Members: LSRN X2, Stroke team Date/Time of Admission: 09/16/2024 10:06 AM Unit/Room: offset label rewinder recovery Service: Cardiology Attending: Dr. Causey Bacteriology Teacher present? Yes Attending Contacted? Yes Time Activated: [...] Raya PA - 09/16/2024 5:11 PM EDT [facility] NEUROSURGERY CONSULT NOTE ID: Lucero Bruno 74 y.o. female : 1950 Consult Requesting Service: Cardiology Consult Requesting Attending: DUANE CAUSEY V PCP: Leila Manjarrez Time of consultation: 1639 Time of patient evaluation: 8 Reason for consult: new bleed on CT HISTORY OF PRESENT ILLNESS: Lucero Bruno is a 74 y.o. female with PMHx notable for Afib (taking ASA, previously on apixaban-stopped taking after IPH in April), CHRISTOPHER, HLD, BMI of 36, prior IPH 04/2024 who presented to [facility] for placement of Watchman with cardiology. She [...] 15) performed by Xiomara Burkett MD at [facility] MAIN OR MEDICATIONS: No current facility-administered [...] Don, on the phone who lives in [place]. Don stated his mother would want to [...] AM ECHO INPATIENT ADD-ON MH NI Card [facility] 11/10/2024 8:00 AM Clarisse Duke, RUBBER THREAD SPOOLER [facility] NEURO [facility] Neurosurgery Pager: [phone] ADRIANA Lindsey 09/16/2024 5:11 PM Clinical Documentation [...] 168 hours. No results for input(s): PHART, ZSJ8SLJ, PO2ART, VEP7ZWB in the last 168 hours. No results [...] medically stable Please page Vascular Neurology at #[phone] with any questions. Umm Goodrich MD Neurology, PGY3 Department of Neurology [place] [phone] Neurology Attending Attestation I evaluated the patient [...] Procedure Note: Patient Name: Lucero Bruno : [id number] MR#: [id number] Case Date: 09/16/2024 Animal Groomer: Surgeons and Role: Panel 1: * Duane [...] obtaining Baseline MONICA assessment which demonstrated the ANUGS appropriate for closure without thrombus. Under US guidance a Transseptal puncture was performed using the [employer] VersaCross System. A WM TruSteer sheath was tracked across the inter-atrial septum without difficulty. An angled angiographic pig tail catheter (6Fr) was then positioned in the ANGUS through which an angiogram was performed showing anatomy c/w MONICA findings (LA = 12 mmHg). A Watchman FLX-Pro 27 mm ([id number]) was prepped according to the Vice President Global Advertising Sales's IFU with special attention to elimante all [...] groggy without apparent complications. Duane Causey MD [facility] landscape account manager Pager [phone] documented in this encounter Plan of Treatment Upcoming Encounters Date Type Department Care Team (Late st Contact Info) Description 11/04/2024 11:15 AM EST Appointment Non-Invasive Cardiology Lab [address] 11/10/2024 8:00 AM EST Office Visit Neurology at [address] Clarisse Duke APRN [facility] [address] [place]OLOG[place] [address] 11/15/2024 10:[address] [place] [place] [address] Karli Morales MD [facility] [address] [place]OLOGY [place] [address] 11/15/2024 11:20 AM EST Office Visit Neurosurgery at [place] [phone] Marvin Kimball PA [facility] [address] [place] [address] 12/15/2024 4:40 PM EST TH Visit (TeleHealth) [place] [address] Duane Causey MD [facility] [place] [address] Pending Results Name Type Priority Associated Diagnoses [...] 10/11/2024 8:22 PM EST RAPID COVID-19 PCR ([facility]) Routine 10/11/2024 4:26 PM EST POC, [...] 09/23/2024 11:30 AM EDT URINALYSIS BEAKER MICROSCOPIC ([facility]/YOGESH) STAT 09/23/2024 10:29 AM EDT _URINALYSIS [...] GAS ARTERIAL POC Routine 5:[address] HEAD WO CONTRAST [...] - 199 mg/dL 10/12/2024 12:23 PM EST [facility] Comment:Supplemental ranges: <140 mg/dL before meals <180 mg/dL all other times of the day. Blood CAPILLARY BLOOD / Unknown 10/12/2024 12:23 PM EST 10/12/2024 12:24 PM EST Karli Morales MD POINT OF CARE TEST O RDERAASHLIE Performing Organization Address City/[facility]/ZIP Co de Phone Number [facility] [place] [address] * POC, GLUCOSE (10/12/2024 11:03 AM EST) Glucometer, POC 188 65 - 199 mg/dL 10/12/2024 11:04 AM EST [facility] Comment:Supplemental ranges: <140 mg/dL before meals <180 mg/dL all other times of the day. 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 Thank you for letting us participate in the care of this patient. ??If you are a health care provider and have any questions regarding this report, please contact the number below. ??For patients who have questions please contact the health healthcare consultant that requested your imaging first. ? Narrative [...] patients who have questions please contactthe health healthcare consultant that requested your imaging first. Karli Morales MD IMG DX ORDERABLES * POC, GLUCOSE (10/12/2024 9:10 AM EST) Glucometer, POC 149 65 - 199 mg/dL 10/12/2024 9:10 AM EST [facility] Comment:Supplemental ranges: <140 mg/dL before meals <180 mg/dL all other times of the day. Blood CAPILLARY BLOOD / Unknown 10/12/2024 9:10 AM EST 10/12/2024 9:10 AM EST Karli Morales MD POINT OF CARE TEST O ALDO Performing Organization Address City/[facility]/ZIP Co de Phone Number [facility] [place] [address] * POC, GLUCOSE (10/12/2024 7:22 AM EST) Glucometer, POC 146 65 - 199 mg/dL 10/12/2024 7:23 AM EST [facility] Comment:Supplemental ranges: <140 mg/dL before meals <180 mg/dL all other times of the day. Blood CAPILLARY BLOOD / Unknown 10/12/2024 7:22 AM EST 10/12/2024 7:23 AM EST Karli Morales MD POINT OF CARE TEST O ALDO [facility] [place] [address] * POC, GLUCOSE (10/12/2024 2:02 AM EST) Glucometer, POC 167 65 - 199 mg/dL 10/12/2024 2:03 AM EST [facility] Comment:Supplemental ranges: <140 mg/dL before meals <180 mg/dL all other times of the day. Blood CAPILLARY BLOOD / Unknown 10/12/2024 2:02 AM EST 10/12/2024 2:03 AM EST Karli Morales MD POINT OF CARE TEST O RDERABLES Performing Organization Address City/[facility]/ZIP Co de Phone Number [facility] [place] [address] * Phosphorus (10/12/2024 12:04 AM EST) Phosphorus 3.3 2.5 - 4.5 mg/dL 10/12/2024 12:52 AM EST [facility] Blood VENOUS BLOOD SPECIMEN / Unknown Venipuncture / Unknown 10/12/2024 12:04 AM EST 10/12/2024 12:23 AM EST Librado Patel MD CHEMISTRY ORDERABLES Performing Organization Address City/[facility] Co de Phone Number [facility] [place] [address] * Magnesium (10/12/2024 12:04 AM EST) Magnesium 0.74 0.69 - 1.07 mMol/L 10/12/2024 12:52 AM EST [facility] Blood VENOUS BLOOD SPECIMEN / Unknown Venipuncture / Unknown 10/12/2024 12:04 AM EST 10/12/2024 12:23 AM EST Librado Patel MD CHEMISTRY ORDERABLES Performing Organization Address City/[facility]/ZIP Co de Phone Number [facility] [place] [address] * (ABNORMAL) Basic Metabolic Panel (10/12/2024 12:04 AM EST) Glucose 154 65 - 199 mg/dL 10/12/2024 12:52 AM EST [facility] Comment:Glucose Concentratio n >=200 mg/dL plus symptoms is consistent with Diabetes Mellitus. Blood Urea Nitrogen 23(H) 8 - 18 mg/dL 10/12/2024 12:52 AM [facility] Creatinine 0.40(L) 0.70 - 1.20 mg/dL 10/12/2024 12:52 AM [facility] Sodium 141 135 - 145 mMol/L 10/12/2024 12:52 AM [facility] Potassium 3.9 3.5 - 5.0 mMol/L 10/12/2024 12:52 AM [facility] Chloride 104 98 - 107 mMol/L 10/12/2024 12:52 AM [facility] Carbon Dioxide 27 22 - 31 mMol/L 10/12/2024 12:52 AM [facility] Anion Gap 10 5 - 15 mMol/L 10/12/2024 12:52 AM [facility] Calcium 9.2 8.5 - 10.5 mg/dL 10/12/2024 12:52 AM [facility] Est Glomerular Filtration Rate - Female 105 mL/min/1. 73 m?? 10/12/2024 12:52 AM [facility] Comment: This patient's estimated GFR [...] AM EST Librado Patel MD CHEMISTRY ORDERABLES [facility] [place] [address] * (ABNORMAL) CBC (with Diff) (10/12/2024 12:04 AM EST) White Blood Cell 9.08 4.00 - 9.50 x10(3)/mc L 10/12/2024 12:27 AM [facility] Red Blood Cell 3.61(L) 4.00 - 5.21 x10(6)/mc L 10/12/2024 12:27 AM [facility] Hemoglobin 10.9(L) 11.7 - 15.5 g/dL 10/12/2024 12:27 AM [facility] Hematocrit 33.7(L) 35.7 - 45.8 % 10/12/2024 12:27 AM [facility] Mean Cell Volume 93.4 82.6 - 94.4 fL 10/12/2024 12:27 AM [facility] Mean Cell Hemoglobin 30.2 27.1 - 32.0 pg 10/12/2024 12:27 AM [facility] Mean Cell Hemoglobin Concentration 32.3 31.7 - 35.0 g/dL 10/12/2024 12:27 AM [facility] Platelet 284 145 - 357 x10(3)/mc L 10/12/2024 12:27 AM [facility] Mean Platelet Volume 10.3 7.6 - 12.9 fL 10/12/2024 12:27 AM [facility] RDW Standard Deviation 49.2(H) 37.0 - 46.0 fL 10/12/2024 12:27 AM [facility] RDW coefficient of variation 14.5(H) 11.5 - 14.1 % 10/12/2024 12:27 AM [facility] NRBC% auto 0.0 % 10/12/2024 12:27 AM [facility] NRBC Absolute <0.01 <0.01 x10(3)/mc L 10/12/2024 12:27 AM [facility] Neutrophil % 66.0 % 10/12/2024 12:27 AM [facility] Neutrophil Absolute (ANC) - Automated 5.99 1.70 - 6.10 x10(3)/mc L 10/12/2024 12:27 AM [facility] Lymph % 20.2 % 10/12/2024 12:27 AM [facility] Lymph Absolute 1.83 0.90 - 3.20 x10(3)/mc L 10/12/2024 12:27 AM [facility] Monocyte % 8.1 % 10/12/2024 12:27 AM [facility] Monocyte Absolute 0.74 0.30 - 0.90 x10(3)/mc L 10/12/2024 12:27 AM [facility] Eos % 4.0 % 10/12/2024 12:27 AM [facility] Eos Absolute 0.36 0.00 - 0.40 x10(3)/mc L 10/12/2024 12:27 AM [facility] Basophil % 0.2 % 10/12/2024 12:27 AM [facility] Baso Absolute <0.04 0.00 - 0.10 x10(3)/mc L 10/12/2024 12:27 AM [facility] Immature Gran % 1.5 % 12:27 AM [facility] Immature Gran Absolute 0.14(H) 0.00 - 0.04 x10(3)/mc L 10/12/2024 12:27 AM [facility] Blood VENOUS BLOOD SPECIMEN / Unknown Venipuncture / Unknown 10/12/2024 12:04 AM EST 10/12/2024 12:23 AM EST Librado Patel MD HEMATOLOGY ORDERABLE S [facility] [place] [address] * POC, GLUCOSE (10/11/2024 8:22 PM EST) Glucometer, POC 154 65 - 199 mg/dL 10/11/2024 8:22 PM EST [facility] Comment:Supplemental ranges: <140 mg/dL before meals <180 mg/dL all other times of the day. Blood CAPILLARY BLOOD / Unknown 10/11/2024 8:22 PM EST 10/11/2024 8:22 PM EST Karli Morales MD POINT OF CARE TEST O RDERABLES [facility] [place] [address] * COVID-19 PCR (10/11/2024 4:26 PM EST) [facility] SARS-CoV-2 RNA (Rapid) Not Detected Not Detected 10/11/2024 7:04 PM EST [facility] Swab SPECIMEN FROM NASOPHARYNGEAL STRUCTURE / Unknown Non Blood Collection / Unknown 10/11/2024 4:26 PM EST 10/11/2024 4:39 PM EST Karli Morales MD MICROBIOLOGY - GENER AL ORDERABLES Performing Organization Address City/[facility]/ZIP Co de Phone Number [facility] [place] [address] * POC, GLUCOSE (10/11/2024 4:01 PM EST) Glucometer, POC 156 65 - 199 mg/dL 10/11/2024 4:02 PM EST [facility] Comment:Supplemental ranges: <140 mg/dL before meals <180 mg/dL all other times of the day. Blood CAPILLARY BLOOD / Unknown 10/11/2024 4:01 PM EST 10/11/2024 4:02 PM EST Karli Morales MD POINT OF CARE TEST O RDERABLES [facility] [place] [address] * POC, GLUCOSE (10/11/2024 12:15 PM EST) Glucometer, POC 152 65 - 199 mg/dL 10/11/2024 12:16 PM EST [facility] Comment:Supplemental ranges: <140 mg/dL before meals <180 mg/dL all other times of the day. Blood CAPILLARY BLOOD / Unknown 10/11/2024 12:15 PM EST 10/11/2024 12:16 PM EST Karli Morales MD POINT OF CARE TEST O ALDO [facility] [place] [address] * POC, GLUCOSE (10/11/2024 7:30 AM EST) Glucometer, POC 126 65 - 199 mg/dL 10/11/2024 7:30 AM EST [facility] Comment:Supplemental ranges: <140 mg/dL before meals <180 mg/dL all other times of the day. Blood CAPILLARY BLOOD / Unknown 10/11/2024 7:30 AM EST 10/11/2024 7:30 AM EST Karli Morales MD POINT OF CARE TEST O ALDO [facility] [place] [address] * POC, GLUCOSE (10/11/2024 2:40 AM EST) Glucometer, POC 139 65 - 199 mg/dL 10/11/2024 2:40 AM EST [facility] Comment:Supplemental ranges: <140 mg/dL before meals <180 mg/dL all other times of the day. Blood CAPILLARY BLOOD / Unknown 10/11/2024 2:40 AM EST 10/11/2024 2:41 AM EST Karli Morales MD POINT OF CARE TEST O RDERABLES [facility] [place] [address] * Phosphorus (10/10/2024 11:50 PM EST) Phosphorus 3.0 2.5 - 4.5 mg/dL 10/11/2024 12:44 AM EST [facility] Blood VENOUS BLOOD SPECIMEN / Unknown Venipuncture / Unknown 10/10/2024 11:50 PM EST 10/11/2024 12:07 AM EST Librado Patel MD CHEMISTRY ORDERABLES Performing Organization Address City/[facility]/ZIP Co de Phone Number [facility] [place] [place] [address] * Magnesium (10/10/2024 11:50 PM EST) Magnesium 0.73 0.69 - 1.07 mMol/L 10/11/2024 12:44 AM EST [facility] Blood VENOUS BLOOD SPECIMEN / Unknown Venipuncture / Unknown 10/10/2024 11:50 PM EST 10/11/2024 12:07 AM EST Librado Patel MD CHEMISTRY ORDERABLES Performing Organization Address City/[facility]/ZIP Co de Phone Number [facility] [place] [address] * (ABNORMAL) Basic Metabolic Panel (10/10/2024 11:50 PM EST) Glucose 179 65 - 199 mg/dL 10/11/2024 12:44 AM EST [facility] Comment:Glucose Concentratio n >=200 mg/dL plus symptoms is consistent with Diabetes Mellitus. Blood Urea Nitrogen 21(H) 8 - 18 mg/dL 10/11/2024 12:44 AM EST [facility] Creatinine 0.35(L) 0.70 - 1.20 mg/dL 10/11/2024 12:44 AM EST [facility] Sodium 139 135 - 145 mMol/L 10/11/2024 12:44 AM [facility] Potassium 3.8 3.5 - 5.0 mMol/L 10/11/2024 12:44 AM [facility] Chloride 103 98 - 107 mMol/L 10/11/2024 12:44 AM [facility] Carbon Dioxide 27 22 - 31 mMol/L 10/11/2024 12:44 AM [facility] Anion Gap 9 5 - 15 mMol/L 10/11/2024 12:44 AM [facility] Calcium 9.3 8.5 - 10.5 mg/dL 10/11/2024 12:44 AM [facility] Est Glomerular Filtration Rate - Female 109 mL/min/1. 73 m?? 10/11/2024 12:44 AM [facility] Comment: This patient's estimated GFR [...] AM EST Librado Patel MD CHEMISTRY ORDERABLES [facility] [place] [address] * (ABNORMAL) CBC (with Diff) (10/10/2024 11:50 PM EST) White Blood Cell 9.97(H) 4.00 - 9.50 x10(3)/mc L 10/11/2024 12:12 AM [facility] Red Blood Cell 3.59(L) 4.00 - 5.21 x10(6)/mc L 10/11/2024 12:12 AM [facility] Hemoglobin 10.9(L) 11.7 - 15.5 g/dL 10/11/2024 12:12 AM [facility] Hematocrit 33.9(L) 35.7 - 45.8 % 10/11/2024 12:12 AM [facility] Mean Cell Volume 94.4 82.6 - 94.4 fL 10/11/2024 12:12 AM [facility] Mean Cell Hemoglobin 30.4 27.1 - 32.0 pg 10/11/2024 12:12 AM [facility] Mean Cell Hemoglobin Concentration 32.2 31.7 - 35.0 g/dL 10/11/2024 12:12 AM [facility] Platelet 260 145 - 357 x10(3)/mc L 10/11/2024 12:12 AM [facility] Mean Platelet Volume 10.4 7.6 - 12.9 fL 10/11/2024 12:12 AM [facility] RDW Standard Deviation 51.0(H) 37.0 - 46.0 fL 10/11/2024 12:12 AM [facility] RDW coefficient of variation 14.7(H) 11.5 - 14.1 % 10/11/2024 12:12 AM [facility] NRBC% auto 0.0 % 10/11/2024 12:12 AM [facility] NRBC Absolute <0.01 <0.01 x10(3)/mc L 10/11/2024 12:12 AM [facility] Neutrophil % 75.2 % 10/11/2024 12:12 AM [facility] Neutrophil Absolute (ANC) - Automated 7.49(H) 1.70 - 6.10 x10(3)/mc L 10/11/2024 12:12 AM EST [facility] Lymph % 13.3 % 10/11/2024 12:12 AM [facility] Lymph Absolute 1.33 0.90 - 3.20 x10(3)/mc L 10/11/2024 12:12 AM [facility] Monocyte % 6.9 % 10/11/2024 12:12 AM [facility] Monocyte Absolute 0.69 0.30 - 0.90 x10(3)/mc L 10/11/2024 12:12 AM EST [facility] Eos % 3.4 % 10/11/2024 12:12 AM [facility] Eos Absolute 0.34 0.00 - 0.40 x10(3)/mc L 10/11/2024 12:12 AM [facility] Basophil % 0.1 % 10/11/2024 12:12 AM [facility] Baso Absolute <0.04 0.00 - 0.10 x10(3)/mc L 10/11/2024 12:12 AM [facility] Immature Gran % 1.1 % 12:12 AM [facility] Immature Gran Absolute 0.11(H) 0.00 - 0.04 x10(3)/mc L 10/11/2024 12:12 AM [facility] Blood VENOUS BLOOD SPECIMEN / Unknown Venipuncture / Unknown 10/10/2024 11:50 PM EST 10/11/2024 12:07 AM EST Librado Patel MD HEMATOLOGY ORDERABLE S [facility] [place] [address] * TSH [place] (10/10/2024 11:50 PM EST) Thyroid Stimulating Hormone 2.14 0.27 - 4.20 mcIU/mL 10/11/2024 12:44 AM [facility] Comment: Reference Interval (mcIU/mL): ?? Females: ? First Trimester: 0.23-3.88 ? Second Trimester: 0.22-3.90 ? Third Trimester: 0.44-4.66 Blood VENOUS BLOOD SPECIMEN / Unknown Venipuncture / Unknown 10/10/2024 11:50 PM EST 10/11/2024 12:07 AM EST Karli Morales MD CHEMISTRY ORDERABLES Performing Organization Address [facility] Co de Phone Number [facility] [place] [address] * POC, GLUCOSE (10/10/2024 8:37 PM EST) Glucometer, POC 182 65 - 199 mg/dL 10/10/2024 8:37 PM EST [facility] Comment:Supplemental ranges: <140 mg/dL before meals <180 mg/dL all other times of the day. Blood CAPILLARY BLOOD / Unknown 10/10/2024 8:37 PM EST 10/10/2024 8:37 PM EST Karli Morales MD POINT OF CARE TEST O RDERABLES Performing Organization Address [facility] de Phone Number [facility] [place] [address] * POC, GLUCOSE (10/10/2024 5:30 PM EST) Glucometer, POC 99 65 - 199 mg/dL 10/10/2024 5:30 PM EST [facility] Comment:Supplemental ranges: <140 mg/dL before meals <180 mg/dL all other times of the day. Blood CAPILLARY BLOOD / Unknown 10/10/2024 5:30 PM EST 10/10/2024 5:30 PM EST Karli Morales MD POINT OF CARE TEST O RDERABLES Performing Organization Address [facility] Co de Phone Number [facility] [place] [address] * POC, GLUCOSE (10/10/2024 12:30 PM EST) Glucometer, POC 169 65 - 199 mg/dL 10/10/2024 12:30 PM EST [facility] Comment:Supplemental ranges: <140 mg/dL before meals <180 mg/dL all other times of the day. Blood CAPILLARY BLOOD / Unknown 10/10/2024 12:30 PM EST 10/10/2024 12:31 PM EST Karli Morales MD POINT OF CARE TEST O RDERAASHLIE [facility] [place] [place] [address] * POC, GLUCOSE (10/10/2024 8:12 AM EST) Glucometer, POC 136 65 - 199 mg/dL 10/10/2024 8:13 AM EST [facility] Comment:Supplemental ranges: <140 mg/dL before meals <180 mg/dL all other times of the day. Blood CAPILLARY BLOOD / Unknown 10/10/2024 8:12 AM EST 10/10/2024 8:13 AM EST Karli Morales MD POINT OF CARE TEST O RDERAASHLIE [facility] [place] [address] * POC, GLUCOSE (10/10/2024 3:57 AM EST) Glucometer, POC 126 65 - 199 mg/dL 10/10/2024 3:57 AM EST [facility] Comment:Supplemental ranges: <140 mg/dL before meals <180 mg/dL all other times of the day. Blood CAPILLARY BLOOD / Unknown 10/10/2024 3:57 AM EST 10/10/2024 3:57 AM EST Karli Morales MD POINT OF CARE TEST O RDERABLES [facility] [place] [address] * Phosphorus (10/10/2024 12:44 AM EST) Pathologist [facility] Phosphorus 3.1 2.5 - 4.5 mg/dL 10/10/2024 1:21 AM EST [facility] Blood VENOUS BLOOD SPECIMEN / Unknown Venipuncture / Unknown 10/10/2024 12:44 AM EST 10/10/2024 12:53 AM EST Librado Patel MD CHEMISTRY ORDERABLES Performing Organization Address City/[facility]/ZIP Co de Phone Number [facility] [place] [address] * Magnesium (10/10/2024 12:44 AM EST) Pathologist [facility] Magnesium 0.78 0.69 - 1.07 mMol/L 10/10/2024 1:21 AM EST [facility] Blood VENOUS BLOOD SPECIMEN / Unknown Venipuncture / Unknown 10/10/2024 12:44 AM EST 10/10/2024 12:53 AM EST Librado Patel MD CHEMISTRY ORDERABLES Performing Organization Address City/[facility]/ZIP Co de Phone Number [facility] [place] [address] * (ABNORMAL) Basic Metabolic Panel (10/10/2024 12:44 AM EST) Glucose 195 65 - 199 mg/dL 10/10/2024 1:21 AM EST [facility] Comment:Glucose Concentratio n >=200 mg/dL plus symptoms is consistent with Diabetes Mellitus. Blood Urea Nitrogen 22(H) 8 - 18 mg/dL 10/10/2024 1:21 AM EST [facility] Creatinine 0.34(L) 0.70 - 1.20 mg/dL 10/10/2024 1:21 AM EST [facility] Sodium 138 135 - 145 mMol/L 10/10/2024 1:21 AM EST [facility] Potassium 4.2 3.5 - 5.0 mMol/L 10/10/2024 1:21 AM [facility] Chloride 101 98 - 107 mMol/L 10/10/2024 1:21 AM EST [facility] Carbon Dioxide 26 22 - 31 mMol/L 10/10/2024 1:21 AM EST [facility] Anion Gap 11 5 - 15 mMol/L 10/10/2024 1:21 AM EST [facility] Calcium 9.2 8.5 - 10.5 mg/dL 10/10/2024 1:21 AM [facility] Est Glomerular Filtration Rate - Female 110 mL/min/1. 73 m?? 10/10/2024 1:21 AM EST [facility] Comment: This patient's estimated [...] AM EST Librado Patel MD CHEMISTRY ORDERABLES [facility] [place] [address] * (ABNORMAL) CBC (with Diff) (10/10/2024 12:44 AM EST) White Blood Cell 10.15(H) 4.00 - 9.50 x10(3)/mc L 10/10/2024 12:57 AM [facility] Red Blood Cell 3.71(L) 4.00 - 5.21 x10(6)/mc L 10/10/2024 12:57 AM [facility] Hemoglobin 11.3(L) 11.7 - 15.5 g/dL 10/10/2024 12:57 AM [facility] Hematocrit 34.7(L) 35.7 - 45.8 % 10/10/2024 12:57 AM [facility] Mean Cell Volume 93.5 82.6 - 94.4 fL 10/10/2024 12:57 AM [facility] Mean Cell Hemoglobin 30.5 27.1 - 32.0 pg 10/10/2024 12:57 AM [facility] Mean Cell Hemoglobin Concentration 32.6 31.7 - 35.0 g/dL 10/10/2024 12:57 AM [facility] Platelet 230 145 - 357 x10(3)/mc L 10/10/2024 12:57 AM [facility] Mean Platelet Volume 10.3 7.6 - 12.9 fL 10/10/2024 12:57 AM [facility] RDW Standard Deviation 50.0(H) 37.0 - 46.0 fL 10/10/2024 12:57 AM [facility] RDW coefficient of variation 14.7(H) 11.5 - 14.1 % 10/10/2024 12:57 AM [facility] NRBC% auto 0.0 % 10/10/2024 12:57 AM [facility] NRBC Absolute <0.01 <0.01 x10(3)/mc L 10/10/2024 12:57 AM [facility] Neutrophil % 71.5 % 10/10/2024 12:57 AM [facility] Neutrophil Absolute (ANC) - Automated 7.26(H) 1.70 - 6.10 x10(3)/mc L 10/10/2024 12:57 AM [facility] Lymph % 16.9 % 10/10/2024 12:57 AM [facility] Lymph Absolute 1.72 0.90 - 3.20 x10(3)/mc L 10/10/2024 12:57 AM [facility] Monocyte % 7.6 % 10/10/2024 12:57 AM [facility] Monocyte Absolute 0.77 0.30 - 0.90 x10(3)/mc L 10/10/2024 12:57 AM [facility] Eos % 3.0 % 10/10/2024 12:57 AM [facility] Eos Absolute 0.30 0.00 - 0.40 x10(3)/mc L 10/10/2024 12:57 AM [facility] Basophil % 0.3 % 10/10/2024 12:57 AM [facility] Baso Absolute <0.04 0.00 - 0.10 x10(3)/mc L 10/10/2024 12:57 AM [facility] Immature Gran % 0.7 % 12:57 AM [facility] Immature Gran Absolute 0.07(H) 0.00 - 0.04 x10(3)/mc L 10/10/2024 12:57 AM [facility] Blood VENOUS BLOOD SPECIMEN / Unknown Venipuncture / Unknown 10/10/2024 12:44 AM EST 10/10/2024 12:52 AM EST Librado Patel MD HEMATOLOGY ORDERABLE S [facility] [place] [address] * POC, GLUCOSE (10/09/2024 8:07 PM EST) Glucometer, POC 159 65 - 199 mg/dL 10/09/2024 8:08 PM [facility] Comment:Supplemental ranges: <140 mg/dL before meals <180 mg/dL all other times of the day. Blood CAPILLARY BLOOD / Unknown 10/09/2024 8:07 PM EST 10/09/2024 8:08 PM EST Karli Morales MD POINT OF CARE TEST O ALDO Performing Organization Address City/[facility]/ZIP Co de Phone Number [facility] [place] [address] * POC, GLUCOSE (10/09/2024 4:39 PM EST) Glucometer, POC 153 65 - 199 mg/dL 10/09/2024 4:39 PM EST [facility] Comment:Supplemental ranges: <140 mg/dL before meals <180 mg/dL all other times of the day. Blood CAPILLARY BLOOD / Unknown 10/09/2024 4:39 PM EST 10/09/2024 4:39 PM EST Karli Morales MD POINT OF CARE TEST O ALDO Performing Organization Address City/[facility]/ZIP Co de Phone Number [facility] [place] [address] * POC, GLUCOSE (10/09/2024 11:37 AM EST) Glucometer, POC 162 65 - 199 mg/dL 10/09/2024 11:37 AM EST [facility] Comment:Supplemental ranges: <140 mg/dL before meals <180 mg/dL all other times of the day. Blood CAPILLARY BLOOD / Unknown 10/09/2024 11:37 AM EST 10/09/2024 11:37 AM EST Karli Morales MD POINT OF CARE TEST O ALDO [facility] [place] [address] * (ABNORMAL) Urine culture (10/09/2024 10:43 AM EST) Urine Culture Greater than 50,000 cfu/mL Escherichia coli(A) VITEK 2 METHOD 10/12/2024 8:32 AM [facility] Urine Culture Greater than 50,000 cfu/mL Raoultella ornithinolytica (A) VITEK 2 METHOD 10/12/2024 8:32 AM [facility] Urine URINE SPECIMEN OBTAINED VIA STRAIGHT [...] - GENER AL ORDERABLES Performing Organization Address City/[facility]/ZIP Co de Phone Number [facility] [address] * (ABNORMAL) Urinalysis Microscopic with Reflex to Culture (10/09/2024 10:43 AM EST) Bacteria, Urine Many(A) None /HPF 11:01 AM [facility] RBC, Urine 2 0 - 4 /HPF 10/09/2024 11:01 AM [facility] WBC, Urine >=100(H) 0 - 5 /HPF 10/09/2024 11:01 AM EST [facility] Squamous Epithelial Cells, Urine 0 0 - 5 /HPF 10/09/2024 11:01 AM EST [facility] Hyaline Casts, Urine 1 0 - 2 /LPF 10/09/2024 11:01 AM EST [facility] CULTURE ADDED? Yes 10/09/2024 11:01 AM [facility] Urine URINE SPECIMEN OBTAINED VIA STRAIGHT CATHETER / Unknown Non Blood Collection / Unknown 10/09/2024 10:43 AM EST 10/09/2024 10:49 AM EST Karli Morales MD URINE ORDERABLES Performing Organization Address City/[facility]/ZIP Co de Phone Number [facility] [place] [address] * (ABNORMAL) Urinalysis with reflex Culture (10/09/2024 10:43 AM EST) Glucose, Urine Dipstick Negative Negative 10/09/2024 11:01 AM [facility] Protein, Urine Dipstick Trace(A) Negative 10/09/2024 11:01 AM [facility] Bilirubin, Urine Dipstick Negative Negative 10/09/2024 11:01 AM [facility] Comment:Clinical correlation required for positive Urine Bilirubin results as false positive may occur with some drugs and drug related products. If a false positive is suspected a serum total bilirubin should be considered if clinically indicated. Urobilinogen, Urine Dipstick Normal Normal, 0.2 mg/dL, 1.0 mg/dL 10/09/2024 11:01 AM [facility] pH, Urine (dipstick) 7.5 5.0 - 8.0 10/09/2024 11:01 AM [facility] Blood, Urine Dipstick Trace(A) Negative 10/09/2024 11:01 AM [facility] Ketone, Urine Dipstick Negative Negative 10/09/2024 11:01 AM [facility] Nitrite, Urine Dipstick Positive(A) Negative 10/09/2024 11:01 AM [facility] Leukocytes, Urine Dipstick Large(A) Negative 10/09/2024 11:01 AM [facility] Specific [place] Urine Automated 1.017 1.005 - 1.030 10/09/2024 11:01 AM [facility] Appearance, Urine Dipstick Turbid(A) Clear 10/09/2024 11:01 AM [facility] Color, Urine Dipstick Yellow Yellow, Dark Yellow 10/09/2024 11:01 AM [facility] CULTURE ADDED? Yes 10/09/2024 11:01 AM [facility] Urine URINE SPECIMEN OBTAINED VIA STRAIGHT CATHETER / Unknown Non Blood Collection / Unknown 10/09/2024 10:43 AM EST 10/09/2024 10:49 AM EST Karli Morales MD URINE ORDERABLES Performing Organization Address City/[facility]/ZIP Co de Phone Number [facility] [address] * POC, GLUCOSE (10/09/2024 7:44 AM EST) Glucometer, POC 147 65 - 199 mg/dL 10/09/2024 7:44 AM EST [facility] Comment:Supplemental ranges: <140 mg/dL before meals <180 mg/dL all other times of the day. Blood CAPILLARY BLOOD / Unknown 10/09/2024 7:44 AM EST 10/09/2024 7:44 AM EST Karli Morales MD POINT OF CARE TEST O RDERABLES Performing Organization Address City/[facility]/ZIP Co de Phone Number [facility] [place] [address] * POC, GLUCOSE (10/09/2024 1:06 AM EST) Glucometer, POC 149 65 - 199 mg/dL 10/09/2024 1:08 AM EST [facility] Comment:Supplemental ranges: <140 mg/dL before meals <180 mg/dL all other times of the day. Blood CAPILLARY BLOOD / Unknown 10/09/2024 1:06 AM EST 10/09/2024 1:08 AM EST Karli Morales MD POINT OF CARE TEST O RDERABLES Performing Organization Address City/[facility]/ZIP Co de Phone Number [facility] [address] * Phosphorus (10/09/2024 12:59 AM EST) Phosphorus 3.5 2.5 - 4.5 mg/dL 10/09/2024 1:46 AM EST [facility] Blood VENOUS BLOOD SPECIMEN / Unknown Venipuncture / Unknown 10/09/2024 12:59 AM EST 10/09/2024 1:16 AM EST Librado Patel MD CHEMISTRY ORDERABLES [facility] [place] [address] * Magnesium (10/09/2024 12:59 AM EST) Magnesium 0.81 0.69 - 1.07 mMol/L 10/09/2024 1:46 AM EST [facility] Blood VENOUS BLOOD SPECIMEN / Unknown Venipuncture / Unknown 10/09/2024 12:59 AM EST 10/09/2024 1:16 AM EST Librado Patel MD CHEMISTRY ORDERABLES Performing Organization Address City/[facility]/ZIP Co de Phone Number [facility] [address] * (ABNORMAL) Basic Metabolic Panel (10/09/2024 12:59 AM EST) Glucose 159 65 - 199 mg/dL 10/09/2024 1:46 AM [facility] Comment:Glucose Concentratio n >=200 mg/dL plus symptoms is consistent with Diabetes Mellitus. Blood Urea Nitrogen 25(H) 8 - 18 mg/dL 10/09/2024 1:46 AM [facility] Creatinine 0.36(L) 0.70 - 1.20 mg/dL 10/09/2024 1:46 AM [facility] Sodium 140 135 - 145 mMol/L 10/09/2024 1:46 AM [facility] Potassium 4.2 3.5 - 5.0 mMol/L 10/09/2024 1:46 AM [facility] Chloride 102 98 - 107 mMol/L 10/09/2024 1:46 AM [facility] Carbon Dioxide 28 22 - 31 mMol/L 10/09/2024 1:46 AM EST [facility] Anion Gap 10 5 - 15 mMol/L 10/09/2024 1:46 AM EST [facility] Calcium 9.5 8.5 - 10.5 mg/dL 10/09/2024 1:46 AM EST [facility] Est Glomerular Filtration Rate - Female 108 mL/min/1. 73 m?? 10/09/2024 1:46 AM EST [facility] Comment: This patient's estimated [...] AM EST Librado Patel MD CHEMISTRY ORDERABLES [facility] [place] [address] * (ABNORMAL) CBC (with Diff) (10/09/2024 12:59 AM EST) White Blood Cell 12.45(H) 4.00 - 9.50 x10(3)/mc L 10/09/2024 1:27 AM EST [facility] Red Blood Cell 3.42(L) 4.00 - 5.21 x10(6)/mc L 10/09/2024 1:27 AM EST [facility] Hemoglobin 10.4(L) 11.7 - 15.5 g/dL 10/09/2024 1:27 AM EST [facility] Hematocrit 32.1(L) 35.7 - 45.8 % 10/09/2024 1:27 AM [facility] Mean Cell Volume 93.9 82.6 - 94.4 fL 10/09/2024 1:27 AM [facility] Mean Cell Hemoglobin 30.4 27.1 - 32.0 pg 10/09/2024 1:27 AM [facility] Mean Cell Hemoglobin Concentration 32.4 31.7 - 35.0 g/dL 10/09/2024 1:27 AM [facility] Platelet 207 145 - 357 x10(3)/mc L 10/09/2024 1:27 AM [facility] Mean Platelet Volume 10.4 7.6 - 12.9 fL 10/09/2024 1:27 AM [facility] RDW Standard Deviation 49.9(H) 37.0 - 46.0 fL 10/09/2024 1:27 AM [facility] RDW coefficient of variation 14.6(H) 11.5 - 14.1 % 10/09/2024 1:27 AM [facility] NRBC% auto 0.0 % 10/09/2024 1:27 AM [facility] NRBC Absolute <0.01 <0.01 x10(3)/mc L 10/09/2024 1:27 AM [facility] Neutrophil % 80.1 % 10/09/2024 1:27 AM [facility] Neutrophil Absolute (ANC) - Automated 9.95(H) 1.70 - 6.10 x10(3)/mc L 10/09/2024 1:27 AM [facility] Lymph % 10.9 % 10/09/2024 1:27 AM [facility] Lymph Absolute 1.36 0.90 - 3.20 x10(3)/mc L 10/09/2024 1:27 AM [facility] Monocyte % 6.4 % 10/09/2024 1:27 AM [facility] Monocyte Absolute 0.80 0.30 - 0.90 x10(3)/mc L 10/09/2024 1:27 AM EST [facility] Eos % 1.8 % 10/09/2024 1:27 AM [facility] Eos Absolute 0.23 0.00 - 0.40 x10(3)/mc L 10/09/2024 1:27 AM EST [facility] Basophil % 0.2 % 10/09/2024 1:27 AM [facility] Baso Absolute <0.04 0.00 - 0.10 x10(3)/mc L 10/09/2024 1:27 AM [facility] Immature Gran % 0.6 % 1:27 AM [facility] Immature Gran Absolute 0.08(H) 0.00 - 0.04 x10(3)/mc L 10/09/2024 1:27 AM [facility] Blood VENOUS BLOOD SPECIMEN / Unknown Venipuncture / Unknown 10/09/2024 12:59 AM EST 10/09/2024 1:16 AM EST Librado Patel MD HEMATOLOGY ORDERABLE S [facility] [place] [place] [address] * POC, GLUCOSE (10/08/2024 8:35 PM EST) [facility] Signature Glucometer, POC 175 65 - 199 mg/dL 10/08/2024 8:35 PM EST [facility] Comment:Supplemental ranges: <140 mg/dL before meals <180 mg/dL all other times of the day. Blood CAPILLARY BLOOD / Unknown 10/08/2024 8:35 PM EST 10/08/2024 8:36 PM EST Karli Morales MD POINT OF CARE TEST O RDERABLES [facility] [place] [place] [address] * POC, GLUCOSE (10/08/2024 4:41 PM EST) Glucometer, POC 177 65 - 199 mg/dL 10/08/2024 4:41 PM EST [facility] Comment:Supplemental ranges: <140 mg/dL before meals <180 mg/dL all other times of the day. Blood CAPILLARY BLOOD / Unknown 10/08/2024 4:41 PM EST 10/08/2024 4:42 PM EST Karli Morales MD POINT OF CARE TEST O RDERABLES [facility] [place] [place] [address] * XR Fluoro Esophagram (Modified/Video Swallow Pharynx) (10/08/2024 4:10 PM EST) Pathologist [facility] WORKSTATION ID [id number] [facility] Anatomical Region Laterality Modality N/A [...] who have questions please contact the health healthcare consultant that requested your imaging first. ? Electronically signed by: Victor Manuel Smith MD, [facility] ([phone]), at 10/08/2024 4:49 PM Narrative 10/08/2024 4:49 [...] patients who have questions please contactthe health healthcare consultant that requested your imaging first. Electronically signed by: Victor Manuel Smith MD, [facility]([phone]), at 10/08/2024 4:49 PM Karli Morales MD IMG FLUORO ORDERABLE S * POC, GLUCOSE (10/08/2024 12:49 PM EST) Glucometer, POC 176 65 - 199 mg/dL 10/08/2024 12:50 PM EST [facility] Comment:Supplemental ranges: <140 mg/dL before meals <180 mg/dL all other times of the day. Blood CAPILLARY BLOOD / Unknown 10/08/2024 12:49 PM EST 10/08/2024 12:50 PM EST Karli Morales MD POINT OF CARE TEST O ALDO Performing Organization Address [facility] Co de Phone Number [facility] [place] [address] * POC, GLUCOSE (10/08/2024 8:26 AM EST) Glucometer, POC 123 65 - 199 mg/dL 10/08/2024 8:26 AM EST [facility] Comment:Supplemental ranges: <140 mg/dL before meals <180 mg/dL all other times of the day. Blood CAPILLARY BLOOD / Unknown 10/08/2024 8:26 AM EST 10/08/2024 8:26 AM EST Karli Morales MD POINT OF CARE TEST O ALDO Performing Organization Address [facility] Co de Phone Number [facility] [place] [address] * POC, GLUCOSE (10/08/2024 4:15 AM EST) Glucometer, POC 135 65 - 199 mg/dL 10/08/2024 4:15 AM EST [facility] Comment:Supplemental ranges: <140 mg/dL before meals <180 mg/dL all other times of the day. Blood CAPILLARY BLOOD / Unknown 10/08/2024 4:15 AM EST 10/08/2024 4:15 AM EST Karli Morales MD POINT OF CARE TEST O ASHLEYERAASHLIE [facility] [place] [place] [address] * Phosphorus (10/08/2024 1:13 AM EST) Pathologist [facility] Phosphorus 3.3 2.5 - 4.5 mg/dL 10/08/2024 2:06 AM EST [facility] Blood VENOUS BLOOD SPECIMEN / Unknown Venipuncture / Unknown 10/08/2024 1:13 AM EST 10/08/2024 1:34 AM EST Librado Patel MD CHEMISTRY ORDERABLES [facility] [place] [address] * Magnesium (10/08/2024 1:13 AM EST) [facility] Magnesium 0.79 0.69 - 1.07 mMol/L 10/08/2024 2:06 AM [facility] Blood VENOUS BLOOD SPECIMEN / Unknown Venipuncture / Unknown 10/08/2024 1:13 AM EST 10/08/2024 1:34 AM EST Librado Patel MD CHEMISTRY ORDERABLES [facility] [place] [place] [address] * (ABNORMAL) Basic Metabolic Panel (10/08/2024 1:13 AM EST) [facility] Glucose 186 65 - 199 mg/dL 10/08/2024 2:06 AM EST [facility] Comment:Glucose Concentratio n >=200 mg/dL plus symptoms is consistent with Diabetes Mellitus. Blood Urea Nitrogen 26(H) 8 - 18 mg/dL 10/08/2024 2:06 AM EST [facility] Creatinine 0.39(L) 0.70 - 1.20 mg/dL 10/08/2024 2:06 AM EST [facility] Sodium 138 135 - 145 mMol/L 10/08/2024 2:06 AM [facility] Potassium 4.4 3.5 - 5.0 mMol/L 10/08/2024 2:06 AM [facility] Chloride 104 98 - 107 mMol/L 10/08/2024 2:06 AM [facility] Carbon Dioxide 27 22 - 31 mMol/L 10/08/2024 2:06 AM [facility] Anion Gap 7 5 - 15 mMol/L 10/08/2024 2:06 AM [facility] Calcium 8.9 8.5 - 10.5 mg/dL 10/08/2024 2:06 AM [facility] Est Glomerular Filtration Rate - Female 106 mL/min/1. 73 m?? 10/08/2024 2:06 AM [facility] Comment: This patient's estimated GFR [...] AM EST Librado Patel MD CHEMISTRY ORDERABLES [facility] [place] [address] * (ABNORMAL) CBC (with Diff) (10/08/2024 1:13 AM EST) White Blood Cell 11.43(H) 4.00 - 9.50 x10(3)/mc L 10/08/2024 1:39 AM EST [facility] Red Blood Cell 3.30(L) 4.00 - 5.21 x10(6)/mc L 10/08/2024 1:39 AM [facility] Hemoglobin 10.0(L) 11.7 - 15.5 g/dL 10/08/2024 1:39 AM [facility] Hematocrit 31.2(L) 35.7 - 45.8 % 10/08/2024 1:39 AM [facility] Mean Cell Volume 94.5(H) 82.6 - 94.4 fL 10/08/2024 1:39 AM [facility] Mean Cell Hemoglobin 30.3 27.1 - 32.0 pg 10/08/2024 1:39 AM [facility] Mean Cell Hemoglobin Concentration 32.1 31.7 - 35.0 g/dL 10/08/2024 1:39 AM [facility] Platelet 190 145 - 357 x10(3)/mc L 10/08/2024 1:39 AM [facility] Mean Platelet Volume 9.9 7.6 - 12.9 fL 10/08/2024 1:39 AM [facility] RDW Standard Deviation 52.3(H) 37.0 - 46.0 fL 10/08/2024 1:39 AM [facility] RDW coefficient of variation 15.2(H) 11.5 - 14.1 % 10/08/2024 1:39 AM [facility] NRBC% auto 0.0 % 10/08/2024 1:39 AM [facility] NRBC Absolute <0.01 <0.01 x10(3)/mc L 10/08/2024 1:39 AM [facility] Neutrophil % 78.8 % 10/08/2024 1:39 AM [facility] Neutrophil Absolute (ANC) - Automated 9.01(H) 1.70 - 6.10 x10(3)/mc L 10/08/2024 1:39 AM [facility] Lymph % 11.9 % 10/08/2024 1:39 AM EST [facility] Lymph Absolute 1.36 0.90 - 3.20 x10(3)/mc L 10/08/2024 1:39 AM [facility] Monocyte % 5.9 % 10/08/2024 1:39 AM [facility] Monocyte Absolute 0.67 0.30 - 0.90 x10(3)/mc L 10/08/2024 1:39 AM EST [facility] Eos % 2.7 % 10/08/2024 1:39 AM [facility] Eos Absolute 0.31 0.00 - 0.40 x10(3)/mc L 10/08/2024 1:39 AM [facility] Basophil % 0.1 % 10/08/2024 1:39 AM [facility] Baso Absolute <0.04 0.00 - 0.10 x10(3)/mc L 10/08/2024 1:39 AM [facility] Immature Gran % 0.6 % 1:39 AM [facility] Immature Gran Absolute 0.07(H) 0.00 - 0.04 x10(3)/mc L 10/08/2024 1:39 AM [facility] Blood VENOUS BLOOD SPECIMEN / Unknown Venipuncture / Unknown 10/08/2024 1:13 AM EST 10/08/2024 1:34 AM EST Librado Patel MD HEMATOLOGY ORDERABLE S [facility] [place] [address] * POC, GLUCOSE (10/08/2024 1:07 AM EST) Glucometer, POC 171 65 - 199 mg/dL 10/08/2024 1:07 AM [facility] Comment:Supplemental ranges: <140 mg/dL before meals <180 mg/dL all other times of the day. Blood CAPILLARY BLOOD / Unknown 10/08/2024 1:07 AM EST 10/08/2024 1:07 AM EST Karli Morales MD POINT OF CARE TEST O ALDO Performing Organization Address [facility] Co de Phone Number [facility] [place] [address] * POC, GLUCOSE (10/07/2024 8:55 PM EST) Glucometer, POC 114 65 - 199 mg/dL 10/07/2024 8:55 PM EST [facility] Comment:Supplemental ranges: <140 mg/dL before meals <180 mg/dL all other times of the day. Blood CAPILLARY BLOOD / Unknown 10/07/2024 8:55 PM EST 10/07/2024 8:56 PM EST Karli Morales MD POINT OF CARE TEST O ALDO Performing Organization Address [facility] Co de Phone Number [facility] [place] [address] * POC, GLUCOSE (10/07/2024 4:29 PM EST) Glucometer, POC 178 65 - 199 mg/dL 10/07/2024 4:29 PM EST [facility] Comment:Supplemental ranges: <140 mg/dL before meals <180 mg/dL all other times of the day. Blood CAPILLARY BLOOD / Unknown 10/07/2024 4:29 PM EST 10/07/2024 4:29 PM EST Karli Morales MD POINT OF CARE TEST O ALDO Performing Organization Address City/[facility] Co de Phone Number [facility] [place] [address] * CT Head wo Contrast (Generic) (10/07/2024 3:25 PM EST) WORKSTATION ID [id number] RAD Anatomical Region Laterality Modality Head Computed [...] who have questions please contact the health healthcare consultant that requested your imaging first. ? Narrative [...] patients who have questions please contactthe health healthcare consultant that requested your imaging first. Karli Morales MD IM CT ORDERABLES * POC, GLUCOSE (10/07/2024 11:30 AM EST) [facility] Signature Glucometer, POC 169 65 - 199 mg/dL 10/07/2024 11:30 AM EST [facility] Comment:Supplemental ranges: <140 mg/dL before meals <180 mg/dL all other times of the day. Blood CAPILLARY BLOOD / Unknown 10/07/2024 11:30 AM EST 10/07/2024 11:30 AM EST Karli Morales MD POINT OF CARE TEST O RDERAASHLIE Performing Organization Address City/[facility]/ZIP Co de Phone Number [facility] [place] [address] * POC, GLUCOSE (10/07/2024 8:42 AM EST) Glucometer, POC 166 65 - 199 mg/dL 10/07/2024 8:42 AM EST [facility] Comment:Supplemental ranges: <140 mg/dL before meals <180 mg/dL all other times of the day. Blood CAPILLARY BLOOD / Unknown 10/07/2024 8:42 AM EST 10/07/2024 8:42 AM EST Karli Morales MD POINT OF CARE TEST O ASHLEYERAASHLIE Performing Organization Address City/[facility]/ZIP Co de Phone Number [facility] [place] [address] * POC, GLUCOSE (10/07/2024 4:17 AM EST) Glucometer, POC 175 65 - 199 mg/dL 10/07/2024 4:17 AM EST [facility] Comment:Supplemental ranges: <140 mg/dL before meals <180 mg/dL all other times of the day. Blood CAPILLARY BLOOD / Unknown 10/07/2024 4:17 AM EST 10/07/2024 4:17 AM EST Karli Morales MD POINT OF CARE TEST O RDERAASHLIE [facility] [place] [address] * Phosphorus (10/07/2024 1:12 AM EST) Pathologist [facility] Phosphorus 2.6 2.5 - 4.5 mg/dL 10/07/2024 1:58 AM [facility] Blood VENOUS BLOOD SPECIMEN / Unknown Venipuncture / Unknown 10/07/2024 1:12 AM EST 10/07/2024 1:32 AM EST Librado Patel MD CHEMISTRY ORDERABLES Performing Organization Address City/[facility]/ZIP Co de Phone Number [facility] [place] [address] * Magnesium (10/07/2024 1:12 AM EST) [facility] Magnesium 0.72 0.69 - 1.07 mMol/L 10/07/2024 1:58 AM [facility] Blood VENOUS BLOOD SPECIMEN / Unknown Venipuncture / Unknown 10/07/2024 1:12 AM EST 10/07/2024 1:32 AM EST Librado Patel MD CHEMISTRY ORDERABLES Performing Organization Address City/[facility]/ZIP Co de Phone Number [facility] [place] [address] * (ABNORMAL) Basic Metabolic Panel (10/07/2024 1:12 AM EST) [facility] Glucose 190 65 - 199 mg/dL 10/07/2024 1:58 AM [facility] Comment:Glucose Concentratio n >=200 mg/dL plus symptoms is consistent with Diabetes Mellitus. Blood Urea Nitrogen 17 8 - 18 mg/dL 10/07/2024 1:58 AM [facility] Creatinine 0.36(L) 0.70 - 1.20 mg/dL 10/07/2024 1:58 AM [facility] Sodium 138 135 - 145 mMol/L 10/07/2024 1:58 AM [facility] Potassium 4.0 3.5 - 5.0 mMol/L 10/07/2024 1:58 AM [facility] Chloride 102 98 - 107 mMol/L 10/07/2024 1:58 AM EST [facility] Carbon Dioxide 27 22 - 31 mMol/L 10/07/2024 1:58 AM [facility] Anion Gap 9 5 - 15 mMol/L 10/07/2024 1:58 AM [facility] Calcium 9.0 8.5 - 10.5 mg/dL 10/07/2024 1:58 AM EST [facility] Est Glomerular Filtration Rate - Female 108 mL/min/1. 73 m?? 10/07/2024 1:58 AM [facility] Comment: This patient's estimated GFR [...] AM EST Librado Patel MD CHEMISTRY ORDERABLES [facility] [address] * (ABNORMAL) CBC (with Diff) (10/07/2024 1:12 AM EST) White Blood Cell 15.48(H) 4.00 - 9.50 x10(3)/mc L 10/07/2024 1:36 AM EST [facility] Red Blood Cell 3.49(L) 4.00 - 5.21 x10(6)/mc L 10/07/2024 1:36 AM EST [facility] Hemoglobin 10.7(L) 11.7 - 15.5 g/dL 10/07/2024 1:36 AM [facility] Hematocrit 32.4(L) 35.7 - 45.8 % 10/07/2024 1:36 AM [facility] Mean Cell Volume 92.8 82.6 - 94.4 fL 10/07/2024 1:36 AM [facility] Mean Cell Hemoglobin 30.7 27.1 - 32.0 pg 10/07/2024 1:36 AM [facility] Mean Cell Hemoglobin Concentration 33.0 31.7 - 35.0 g/dL 10/07/2024 1:36 AM [facility] Platelet 211 145 - 357 x10(3)/mc L 10/07/2024 1:36 AM [facility] Mean Platelet Volume 10.0 7.6 - 12.9 fL 10/07/2024 1:36 AM [facility] RDW Standard Deviation 50.0(H) 37.0 - 46.0 fL 10/07/2024 1:36 AM [facility] RDW coefficient of variation 15.0(H) 11.5 - 14.1 % 10/07/2024 1:36 AM [facility] NRBC% auto 0.0 % 10/07/2024 1:36 AM [facility] NRBC Absolute <0.01 <0.01 x10(3)/mc L 10/07/2024 1:36 AM [facility] Neutrophil % 85.0 % 10/07/2024 1:36 AM [facility] Neutrophil Absolute (ANC) - Automated 13.16(H) 1.70 - 6.10 x10(3)/mc L 10/07/2024 1:36 AM [facility] Lymph % 8.3 % 10/07/2024 1:36 AM [facility] Lymph Absolute 1.29 0.90 - 3.20 x10(3)/mc L 10/07/2024 1:36 AM [facility] Monocyte % 5.0 % 10/07/2024 1:36 AM [facility] Monocyte Absolute 0.78 0.30 - 0.90 x10(3)/mc L 10/07/2024 1:36 AM [facility] Eos % 1.1 % 10/07/2024 1:36 AM [facility] Eos Absolute 0.17 0.00 - 0.40 x10(3)/mc L 10/07/2024 1:36 AM [facility] Basophil % 0.1 % 10/07/2024 1:36 AM [facility] Baso Absolute <0.04 0.00 - 0.10 x10(3)/mc L 10/07/2024 1:36 AM [facility] Immature Gran % 0.5 % 1:36 AM [facility] Immature Gran Absolute 0.07(H) 0.00 - 0.04 x10(3)/mc L 10/07/2024 1:36 AM [facility] Blood VENOUS BLOOD SPECIMEN / Unknown Venipuncture / Unknown 10/07/2024 1:12 AM EST 10/07/2024 1:32 AM EST Librado Patel MD HEMATOLOGY ORDERABLE S [facility] [place] [address] * POC, GLUCOSE (10/07/2024 1:00 AM EST) Glucometer, POC 177 65 - 199 mg/dL 10/07/2024 1:00 AM [facility] Comment:Supplemental ranges: <140 mg/dL before meals <180 mg/dL all other times of the day. Blood CAPILLARY BLOOD / Unknown 10/07/2024 1:00 AM EST 10/07/2024 1:00 AM EST Karli Morales MD POINT OF CARE TEST O RDERAASHLIE Performing Organization Address [facility] Co de Phone Number [facility] [place] [address] * POC, GLUCOSE (10/06/2024 8:40 PM EST) Glucometer, POC 163 65 - 199 mg/dL 10/06/2024 8:40 PM EST [facility] Comment:Supplemental ranges: <140 mg/dL before meals <180 mg/dL all other times of the day. Blood CAPILLARY BLOOD / Unknown 10/06/2024 8:40 PM EST 10/06/2024 8:40 PM EST Karli Morales MD POINT OF CARE TEST O ALDO Performing Organization Address [facility] de Phone Number [facility] [place] [address] * POC, GLUCOSE (10/06/2024 4:20 PM EST) Glucometer, POC 175 65 - 199 mg/dL 10/06/2024 4:20 PM EST [facility] Comment:Supplemental ranges: <140 mg/dL before meals <180 mg/dL all other times of the day. Blood CAPILLARY BLOOD / Unknown 10/06/2024 4:20 PM EST 10/06/2024 4:21 PM EST Karli Morales MD POINT OF CARE TEST O ALDO Performing Organization Address [facility]/ZIP Co de Phone Number [facility] [place] [address] * (ABNORMAL) Troponin-T, High Sensitivity 1 Hour (10/06/2024 12:41 PM EST) Troponin-T, High Sensitivity 18(H) <=14 ng/L 10/06/2024 1:28 PM EST [facility] Comment: This patient's troponin [...] troponin value can be found in the [facility] Test Catalog Troponin - https://[email or web address]-.testcatalog.org/catalogs/565/files/72094 Reference: Fourth Birdseye Definition of Myocardial Infarction. Journal of the [place] [employer] 2018;72:2157-4161 Troponin-T, HS 1 hr delta 3 ng/L 10/06/2024 1:28 PM EST [facility] Comment:The 1 hour Troponin T delta value is the absolute difference between the Troponin T concentrations of the initial and subsequent sample collected between 45 - 120 minutes following the initial collection. Blood VENOUS BLOOD SPECIMEN / Unknown Venipuncture / Unknown 10/06/2024 12:41 PM EST 10/06/2024 12:55 PM EST Karli Morales MD CHEMISTRY ORDERABLES [facility] [place] [address] * POC, GLUCOSE (10/06/2024 12:24 PM EST) [facility] Signature Glucometer, POC 155 65 - 199 mg/dL 10/06/2024 12:24 PM EST [facility] Comment:Supplemental ranges: <140 mg/dL before meals <180 mg/dL all other times of the day. Blood CAPILLARY BLOOD / Unknown 10/06/2024 12:24 PM EST 10/06/2024 12:24 PM EST Karli Morales MD POINT OF CARE TEST O RDERABLES Performing Organization Address City/[facility]/ZIP Co de Phone Number [facility] [place] [address] * (ABNORMAL) Troponin-T, High Sensitivity (10/06/2024 11:13 AM EST) Troponin-T, High Sensitivity Initial 21(H) <=14 ng/L 10/06/2024 11:53 AM EST [facility] Comment: This patient's troponin [...] troponin value can be found in the [facility] Test Catalog Troponin - [email or web address].org/catalogs/565/files/88227 Reference: Fourth Birdseye Definition of Myocardial Infarction. Journal of the [place] [employer] 2018;72:4591-7133 Blood VENOUS BLOOD SPECIMEN / Unknown Venipuncture / Unknown 10/06/2024 11:13 AM EST 10/06/2024 11:17 AM EST Karli Morales MD CHEMISTRY ORDERABLES Performing Organization Address City/[facility]/[place] [address] * XR Chest One View (10/06/2024 10:59 AM EST) WORKSTATION ID [id number] RAD Anatomical Region Laterality Modality Chest N/A [...] who have questions please contact the health healthcare consultant that requested your imaging first. ? Narrative [...] patients who have questions please contactthe health healthcare consultant that requested your imaging first. Karli Morales MD IMG DX ORDERABLES * POC, GLUCOSE (10/06/2024 8:42 AM EST) [facility] Signature Glucometer, POC 169 65 - 199 mg/dL 10/06/2024 8:42 AM EST [facility] Comment:Supplemental ranges: <140 mg/dL before meals <180 mg/dL all other times of the day. Blood CAPILLARY BLOOD / Unknown 10/06/2024 8:42 AM EST 10/06/2024 8:42 AM EST Gissell Velazco MD POINT OF CARE TEST ORDERABLES [facility] [place] [address] * POC, GLUCOSE (10/06/2024 7:34 AM EST) Glucometer, POC 175 65 - 199 mg/dL 10/06/2024 7:34 AM EST [facility] Comment:Supplemental ranges: <140 mg/dL before meals <180 mg/dL all other times of the day. Blood CAPILLARY BLOOD / Unknown 10/06/2024 7:34 AM EST 10/06/2024 7:34 AM EST Gissell Velazco MD POINT OF CARE TEST ORDERABLES Performing Organization Address City/[facility] Co de Phone Number [facility] [place] [address] * POC, GLUCOSE (10/06/2024 4:33 AM EST) Glucometer, POC 147 65 - 199 mg/dL 10/06/2024 4:33 AM EST [facility] Comment:Supplemental ranges: <140 mg/dL before meals <180 mg/dL all other times of the day. Blood CAPILLARY BLOOD / Unknown 10/06/2024 4:33 AM EST 10/06/2024 4:34 AM EST Gissell Velazco MD POINT OF CARE TEST ORDERABLES Performing Organization Address City/[facility] Co de Phone Number [facility] [address] * POC, GLUCOSE (10/06/2024 3:55 AM EST) Glucometer, POC 149 65 - 199 mg/dL 10/06/2024 3:56 AM EST [facility] Comment:Supplemental ranges: <140 mg/dL before meals <180 mg/dL all other times of the day. Blood CAPILLARY BLOOD / Unknown 10/06/2024 3:55 AM EST 10/06/2024 3:56 AM EST Gissell Velazco MD POINT OF CARE TEST ORDERABLES [facility] [place] [address] * Phosphorus (10/06/2024 12:33 AM EST) Pathologist [facility] Phosphorus 2.5 2.5 - 4.5 mg/dL 10/06/2024 12:56 AM EST [facility] Blood VENOUS BLOOD SPECIMEN / Unknown Venipuncture / Unknown 10/06/2024 12:33 AM EST 10/06/2024 12:37 AM EST Librado Patel MD CHEMISTRY ORDERABLES Performing Organization Address City/[facility]/ZIP Co de Phone Number [facility] [place] [address] * Magnesium (10/06/2024 12:33 AM EST) Pathologist [facility] Magnesium 0.73 0.69 - 1.07 mMol/L 10/06/2024 12:56 AM EST [facility] Blood VENOUS BLOOD SPECIMEN / Unknown Venipuncture / Unknown 10/06/2024 12:33 AM EST 10/06/2024 12:37 AM EST Librado Patel MD CHEMISTRY ORDERABLES [facility] [address] * (ABNORMAL) Basic Metabolic Panel (10/06/2024 12:33 AM EST) Glucose 211(H) 65 - 199 mg/dL 10/06/2024 12:56 AM EST [facility] Comment:Glucose Concentratio n >=200 mg/dL plus symptoms is consistent with Diabetes Mellitus. Blood Urea Nitrogen 21(H) 8 - 18 mg/dL 10/06/2024 12:56 AM EST [facility] Creatinine 0.45(L) 0.70 - 1.20 mg/dL 10/06/2024 12:56 AM EST [facility] Sodium 138 135 - 145 mMol/L 10/06/2024 12:56 AM [facility] Potassium 4.3 3.5 - 5.0 mMol/L 10/06/2024 12:56 AM [facility] Chloride 101 98 - 107 mMol/L 10/06/2024 12:56 AM [facility] Carbon Dioxide 26 22 - 31 mMol/L 10/06/2024 12:56 AM [facility] Anion Gap 11 5 - 15 mMol/L 10/06/2024 12:56 AM [facility] Calcium 9.0 8.5 - 10.5 mg/dL 10/06/2024 12:56 AM [facility] Est Glomerular Filtration Rate - Female 102 mL/min/1. 73 m?? 10/06/2024 12:56 AM [facility] Comment: This patient's estimated GFR [...] AM EST Librado Patel MD CHEMISTRY ORDERABLES [facility] [place] [address] * (ABNORMAL) CBC (with Diff) (10/06/2024 12:33 AM EST) White Blood Cell 16.59(H) 4.00 - 9.50 x10(3)/mc L 10/06/2024 12:42 AM EST [facility] Red Blood Cell 3.51(L) 4.00 - 5.21 x10(6)/mc L 10/06/2024 12:42 AM [facility] Hemoglobin 10.8(L) 11.7 - 15.5 g/dL 10/06/2024 12:42 AM [facility] Hematocrit 32.9(L) 35.7 - 45.8 % 10/06/2024 12:42 AM [facility] Mean Cell Volume 93.7 82.6 - 94.4 fL 10/06/2024 12:42 AM [facility] Mean Cell Hemoglobin 30.8 27.1 - 32.0 pg 10/06/2024 12:42 AM [facility] Mean Cell Hemoglobin Concentration 32.8 31.7 - 35.0 g/dL 10/06/2024 12:42 AM [facility] Platelet 237 145 - 357 x10(3)/mc L 10/06/2024 12:42 AM [facility] Mean Platelet Volume 9.8 7.6 - 12.9 fL 10/06/2024 12:42 AM [facility] RDW Standard Deviation 50.4(H) 37.0 - 46.0 fL 10/06/2024 12:42 AM [facility] RDW coefficient of variation 14.8(H) 11.5 - 14.1 % 10/06/2024 12:42 AM [facility] NRBC% auto 0.0 % 10/06/2024 12:42 AM [facility] NRBC Absolute <0.01 <0.01 x10(3)/mc L 10/06/2024 12:42 AM [facility] Neutrophil % 86.8 % 10/06/2024 12:42 AM [facility] Neutrophil Absolute (ANC) - Automated 14.40(H) 1.70 - 6.10 x10(3)/mc L 10/06/2024 12:42 AM [facility] Lymph % 6.5 % 10/06/2024 12:42 AM EST [facility] Lymph Absolute 1.08 0.90 - 3.20 x10(3)/mc L 10/06/2024 12:42 AM [facility] Monocyte % 5.0 % 10/06/2024 12:42 AM [facility] Monocyte Absolute 0.83 0.30 - 0.90 x10(3)/mc L 10/06/2024 12:42 AM EST [facility] Eos % 1.0 % 10/06/2024 12:42 AM [facility] Eos Absolute 0.16 0.00 - 0.40 x10(3)/mc L 10/06/2024 12:42 AM [facility] Basophil % 0.1 % 10/06/2024 12:42 AM [facility] Baso Absolute <0.04 0.00 - 0.10 x10(3)/mc L 10/06/2024 12:42 AM [facility] Immature Gran % 0.6 % 12:42 AM [facility] Immature Gran Absolute 0.10(H) 0.00 - 0.04 x10(3)/mc L 10/06/2024 12:42 AM [facility] Blood VENOUS BLOOD SPECIMEN / Unknown Venipuncture / Unknown 10/06/2024 12:33 AM EST 10/06/2024 12:38 AM EST Librado Patel MD HEMATOLOGY ORDERABLE S [facility] [address] * (ABNORMAL) POC, GLUCOSE (10/06/2024 12:14 AM EST) Glucometer, POC 200(H) 65 - 199 mg/dL 10/06/2024 12:15 AM EST [facility] Comment:Supplemental ranges: <140 mg/dL before meals <180 mg/dL all other times of the day. Blood CAPILLARY BLOOD / Unknown 10/06/2024 12:14 AM EST 10/06/2024 12:15 AM EST Gissell Velazco MD POINT OF CARE TEST ORDERABLES Performing Organization Address City/[facility]/ZIP Co de Phone Number [facility] [place] [address] * POC, GLUCOSE (10/05/2024 8:33 PM EST) Glucometer, POC 129 65 - 199 mg/dL 10/05/2024 8:33 PM EST [facility] Comment:Supplemental ranges: <140 mg/dL before meals <180 mg/dL all other times of the day. Blood CAPILLARY BLOOD / Unknown 10/05/2024 8:33 PM EST 10/05/2024 8:34 PM EST Gissell Velazco MD POINT OF CARE TEST ORDERABLES Performing Organization Address City/[facility]/ZIP Co de Phone Number [facility] [place] [address] * POC, GLUCOSE (10/05/2024 4:59 PM EST) Glucometer, POC 185 65 - 199 mg/dL 10/05/2024 4:59 PM EST [facility] Comment:Supplemental ranges: <140 mg/dL before meals <180 mg/dL all other times of the day. Blood CAPILLARY BLOOD / Unknown 10/05/2024 4:59 PM EST 10/05/2024 5:00 PM EST Gissell Velazco MD POINT OF CARE TEST ORDERABLES [facility] [place] [address] * POC, GLUCOSE (10/05/2024 12:40 PM EST) Glucometer, POC 137 65 - 199 mg/dL 10/05/2024 12:40 PM EST [facility] Comment:Supplemental ranges: <140 mg/dL before meals <180 mg/dL all other times of the day. Blood CAPILLARY BLOOD / Unknown 10/05/2024 12:40 PM EST 10/05/2024 12:40 PM EST Gissell Velazco MD POINT OF CARE TEST ORDERABLES [facility] [place] [address] * POC, GLUCOSE (10/05/2024 8:53 AM EST) Glucometer, POC 160 65 - 199 mg/dL 10/05/2024 8:53 AM EST [facility] Comment:Supplemental ranges: <140 mg/dL before meals <180 mg/dL all other times of the day. Blood CAPILLARY BLOOD / Unknown 10/05/2024 8:53 AM EST 10/05/2024 8:54 AM EST Gissell Velazco MD POINT OF CARE TEST ORDERABLES Performing Organization Address City/[facility] Co de Phone Number [facility] [place] [address] * POC, GLUCOSE (10/05/2024 4:11 AM EST) Glucometer, POC 181 65 - 199 mg/dL 10/05/2024 4:12 AM EST [facility] Comment:Supplemental ranges: <140 mg/dL before meals <180 mg/dL all other times of the day. Blood CAPILLARY BLOOD / Unknown 10/05/2024 4:11 AM EST 10/05/2024 4:12 AM EST Gissell Velazco MD POINT OF CARE TEST ORDERABLES [facility] [place] [address] * Sedimentation rate (10/05/2024 12:08 AM EST) Sedimentation Rate Automated 40 3 - 46 mm/hr 10/05/2024 6:34 AM EST [facility] Blood VENOUS BLOOD SPECIMEN / Unknown Venipuncture / Unknown 10/05/2024 12:08 AM EST 10/05/2024 12:17 AM EST Gissell Velazco MD HEMATOLOGY ORDERAB LES [facility] [place] [address] * (ABNORMAL) CRP, acute inflammation (10/05/2024 12:08 AM EST) C-Reactive Protein 8.6(H) <=4.9 mg/L 10/05/2024 6:11 AM EST [facility] Blood VENOUS BLOOD SPECIMEN / Unknown Venipuncture / Unknown 10/05/2024 12:08 AM EST 10/05/2024 12:17 AM EST Gissell Velazco MD CHEMISTRY ORDERABL ES Performing Organization Address [facility]/ZIP Co de Phone Number [facility] [address] * Phosphorus (10/05/2024 12:08 AM EST) Phosphorus 4.1 2.5 - 4.5 mg/dL 10/05/2024 12:46 AM EST [facility] Blood VENOUS BLOOD SPECIMEN / Unknown Venipuncture / Unknown 10/05/2024 12:08 AM EST 10/05/2024 12:17 AM EST Librado Patel MD CHEMISTRY ORDERABLES Performing Organization Address City/[facility]/ZIP Co de Phone Number [facility] [address] * Magnesium (10/05/2024 12:08 AM EST) Magnesium 0.85 0.69 - 1.07 mMol/L 10/05/2024 12:46 AM [facility] Blood VENOUS BLOOD SPECIMEN / Unknown Venipuncture / Unknown 10/05/2024 12:08 AM EST 10/05/2024 12:17 AM EST Librado Patel MD CHEMISTRY ORDERABLES [facility] [place] [address] * (ABNORMAL) Basic Metabolic Panel (10/05/2024 12:08 AM EST) Glucose 136 65 - 199 mg/dL 10/05/2024 12:46 AM [facility] Comment:Glucose Concentratio n >=200 mg/dL plus symptoms is consistent with Diabetes Mellitus. Blood Urea Nitrogen 24(H) 8 - 18 mg/dL 10/05/2024 12:46 AM [facility] Creatinine 0.36(L) 0.70 - 1.20 mg/dL 10/05/2024 12:46 AM [facility] Sodium 139 135 - 145 mMol/L 10/05/2024 12:46 AM [facility] Potassium 4.2 3.5 - 5.0 mMol/L 10/05/2024 12:46 AM [facility] Chloride 103 98 - 107 mMol/L 10/05/2024 12:46 AM [facility] Carbon Dioxide 29 22 - 31 mMol/L 10/05/2024 12:46 AM [facility] Anion Gap 7 5 - 15 mMol/L 10/05/2024 12:46 AM [facility] Calcium 9.1 8.5 - 10.5 mg/dL 10/05/2024 12:46 AM [facility] Est Glomerular Filtration Rate - Female 108 mL/min/1. 73 m?? 10/05/2024 12:46 AM EST [facility] Comment: This [...] AM EST Librado Patel MD CHEMISTRY ORDERABLES [facility] [place] [address] * (ABNORMAL) CBC (with Diff) (10/05/2024 12:08 AM EST) White Blood Cell 13.56(H) 4.00 - 9.50 x10(3)/mc L 10/05/2024 12:35 AM [facility] Red Blood Cell 3.55(L) 4.00 - 5.21 x10(6)/mc L 10/05/2024 12:35 AM [facility] Hemoglobin 10.8(L) 11.7 - 15.5 g/dL 10/05/2024 12:35 AM [facility] Hematocrit 33.5(L) 35.7 - 45.8 % 10/05/2024 12:35 AM [facility] Mean Cell Volume 94.4 82.6 - 94.4 fL 10/05/2024 12:35 AM [facility] Mean Cell Hemoglobin 30.4 27.1 - 32.0 pg 10/05/2024 12:35 AM [facility] Mean Cell Hemoglobin Concentration 32.2 31.7 - 35.0 g/dL 10/05/2024 12:35 AM [facility] Platelet 241 145 - 357 x10(3)/mc L 10/05/2024 12:35 AM [facility] Mean Platelet Volume 10.3 7.6 - 12.9 fL 10/05/2024 12:35 AM [facility] RDW Standard Deviation 50.0(H) 37.0 - 46.0 fL 10/05/2024 12:35 AM [facility] RDW coefficient of variation 14.6(H) 11.5 - 14.1 % 10/05/2024 12:35 AM [facility] NRBC% auto 0.0 % 10/05/2024 12:35 AM [facility] NRBC Absolute <0.01 <0.01 x10(3)/mc L 10/05/2024 12:35 AM [facility] Neutrophil % 86.3 % 10/05/2024 12:35 AM [facility] Neutrophil Absolute (ANC) - Automated 11.69(H) 1.70 - 6.10 x10(3)/mc L 10/05/2024 12:35 AM [facility] Lymph % 5.5 % 10/05/2024 12:35 AM [facility] Lymph Absolute 0.75(L) 0.90 - 3.20 x10(3)/mc L 10/05/2024 12:35 AM [facility] Monocyte % 5.8 % 10/05/2024 12:35 AM [facility] Monocyte Absolute 0.79 0.30 - 0.90 x10(3)/mc L 10/05/2024 12:35 AM [facility] Eos % 1.6 % 10/05/2024 12:35 AM [facility] Eos Absolute 0.22 0.00 - 0.40 x10(3)/mc L 10/05/2024 12:35 AM [facility] Basophil % 0.1 % 10/05/2024 12:35 AM EST [facility] Baso Absolute <0.04 0.00 - 0.10 x10(3)/mc L 10/05/2024 12:35 AM EST [facility] Immature Gran % 0.7 % 12:35 AM EST [facility] Immature Gran Absolute 0.09(H) 0.00 - 0.04 x10(3)/mc L 10/05/2024 12:35 AM EST [facility] Blood VENOUS BLOOD SPECIMEN / Unknown Venipuncture / Unknown 10/05/2024 12:08 AM EST 10/05/2024 12:17 AM EST Librado Patel MD HEMATOLOGY ORDERABLE S [facility] [address] * POC, GLUCOSE (10/04/2024 11:47 PM EST) Glucometer, POC 127 65 - 199 mg/dL 10/04/2024 11:47 PM EST [facility] Comment:Supplemental ranges: <140 mg/dL before meals <180 mg/dL all other times of the day. Blood CAPILLARY BLOOD / Unknown 10/04/2024 11:47 PM EST 10/04/2024 11:47 PM EST Gissell Velazco MD POINT OF CARE TEST ORDERABLES [facility] [place] [address] * MRI Brain wwo Contrast (Generic) (10/04/2024 10:30 PM EST) WORKSTATION ID [id number] RAD Anatomical Region Laterality Modality Head Magnetic [...] who have questions please contact the health healthcare consultant that requested your imaging first. ? Narrative [...] patients who have questions please contactthe health healthcare consultant that requested your imaging first. Gissell Velazco MD IMG MRI ORDERABLES * POC, GLUCOSE (10/04/2024 7:31 PM EST) Glucometer, POC 119 65 - 199 mg/dL 10/04/2024 7:31 PM EST [facility] Comment:Supplemental ranges: <140 mg/dL before meals <180 mg/dL all other times of the day. Blood CAPILLARY BLOOD / Unknown 10/04/2024 7:31 PM EST 10/04/2024 7:31 PM EST Gissell Velazco MD POINT OF CARE TEST ORDERABLES [facility] [address] * POC, GLUCOSE (10/04/2024 4:53 PM EST) Glucometer, POC 119 65 - 199 mg/dL 10/04/2024 4:54 PM EST [facility] Comment:Supplemental ranges: <140 mg/dL before meals <180 mg/dL all other times of the day. Blood CAPILLARY BLOOD / Unknown 10/04/2024 4:53 PM EST 10/04/2024 4:54 PM EST Gissell Velazco MD POINT OF CARE TEST ORDERABLES [facility] [place] [address] * IR G-Tube Placement (10/04/2024 1:00 PM [...] - 199 mg/dL 10/04/2024 8:12 AM EST [facility] Comment:Supplemental ranges: <140 mg/dL before meals <180 mg/dL all other times of the day. Blood CAPILLARY BLOOD / Unknown 10/04/2024 8:12 AM EST 10/04/2024 8:12 AM EST Gissell Velazco MD POINT OF CARE TEST ORDERABLES [facility] [place] [address] * POC, GLUCOSE (10/04/2024 3:59 AM EST) Glucometer, POC 102 65 - 199 mg/dL 10/04/2024 3:59 AM EST [facility] Comment:Supplemental ranges: <140 mg/dL before meals <180 mg/dL all other times of the day. Blood CAPILLARY BLOOD / Unknown 10/04/2024 3:59 AM EST 10/04/2024 3:59 AM EST Gissell Velazco MD POINT OF CARE TEST ORDERABLES [facility] [place] [address] * CT Head wo Contrast (Generic) (10/04/2024 1:40 AM EST) WORKSTATION ID [id number] [facility] Anatomical Region Laterality Modality Head [...] who have questions please contact the health healthcare consultant that requested your imaging first. ? Narrative [...] patients who have questions please contactthe health healthcare consultant that requested your imaging first. Gissell Velazco MD IMG CT ORDERABLES * Phosphorus (10/04/2024 12:29 AM EST) Phosphorus 2.6 2.5 - 4.5 mg/dL 10/04/2024 1:03 AM EST [facility] Blood VENOUS BLOOD SPECIMEN / Unknown Venipuncture / Unknown 10/04/2024 12:29 AM EST 10/04/2024 12:35 AM EST Librado Patel MD CHEMISTRY ORDERABLES [facility] [place] [address] * Magnesium (10/04/2024 12:29 AM EST) Magnesium 0.80 0.69 - 1.07 mMol/L 10/04/2024 1:03 AM EST [facility] Blood VENOUS BLOOD SPECIMEN / Unknown Venipuncture / Unknown 10/04/2024 12:29 AM EST 10/04/2024 12:35 AM EST Librado Patel MD CHEMISTRY ORDERABLES [facility] [address] * (ABNORMAL) Basic Metabolic Panel (10/04/2024 12:29 AM EST) Glucose 166 65 - 199 mg/dL 10/04/2024 1:03 AM EST [facility] Comment:Glucose Concentratio n >=200 mg/dL plus symptoms is consistent with Diabetes Mellitus. Blood Urea Nitrogen 24(H) 8 - 18 mg/dL 10/04/2024 1:03 AM EST [facility] Creatinine 0.36(L) 0.70 - 1.20 mg/dL 10/04/2024 1:03 AM [facility] Sodium 142 135 - 145 mMol/L 10/04/2024 1:03 AM [facility] Potassium 4.1 3.5 - 5.0 mMol/L 10/04/2024 1:03 AM [facility] Chloride 106 98 - 107 mMol/L 10/04/2024 1:03 AM [facility] Carbon Dioxide 26 22 - 31 mMol/L 10/04/2024 1:03 AM [facility] Anion Gap 10 5 - 15 mMol/L 10/04/2024 1:03 AM [facility] Calcium 8.9 8.5 - 10.5 mg/dL 10/04/2024 1:03 AM [facility] Est Glomerular Filtration Rate - Female 108 mL/min/1. 73 m?? 10/04/2024 1:03 AM [facility] Comment: This patient's estimated GFR [...] AM EST Librado Patel MD CHEMISTRY ORDERABLES [facility] [address] * (ABNORMAL) CBC (with Diff) (10/04/2024 12:29 AM EST) White Blood Cell 14.67(H) 4.00 - 9.50 x10(3)/mc L 10/04/2024 12:40 AM [facility] Red Blood Cell 3.46(L) 4.00 - 5.21 x10(6)/mc L 10/04/2024 12:40 AM [facility] Hemoglobin 10.4(L) 11.7 - 15.5 g/dL 10/04/2024 12:40 AM [facility] Hematocrit 32.8(L) 35.7 - 45.8 % 10/04/2024 12:40 AM [facility] Mean Cell Volume 94.8(H) 82.6 - 94.4 fL 10/04/2024 12:40 AM [facility] Mean Cell Hemoglobin 30.1 27.1 - 32.0 pg 10/04/2024 12:40 AM [facility] Mean Cell Hemoglobin Concentration 31.7 31.7 - 35.0 g/dL 10/04/2024 12:40 AM [facility] Platelet 303 145 - 357 x10(3)/mc L 10/04/2024 12:40 AM [facility] Mean Platelet Volume 9.8 7.6 - 12.9 fL 10/04/2024 12:40 AM [facility] RDW Standard Deviation 50.2(H) 37.0 - 46.0 fL 10/04/2024 12:40 AM [facility] RDW coefficient of variation 14.6(H) 11.5 - 14.1 % 10/04/2024 12:40 AM [facility] NRBC% auto 0.0 % 10/04/2024 12:40 AM [facility] NRBC Absolute <0.01 <0.01 x10(3)/mc L 10/04/2024 12:40 AM [facility] Neutrophil % 85.3 % 10/04/2024 12:40 AM [facility] Neutrophil Absolute (ANC) - Automated 12.52(H) 1.70 - 6.10 x10(3)/mc L 10/04/2024 12:40 AM [facility] Lymph % 6.6 % 10/04/2024 12:40 AM [facility] Lymph Absolute 0.97 0.90 - 3.20 x10(3)/mc L 10/04/2024 12:40 AM [facility] Monocyte % 6.1 % 10/04/2024 12:40 AM [facility] Monocyte Absolute 0.89 0.30 - 0.90 x10(3)/mc L 10/04/2024 12:40 AM [facility] Eos % 1.3 % 10/04/2024 12:40 AM [facility] Eos Absolute 0.19 0.00 - 0.40 x10(3)/mc L 10/04/2024 12:40 AM [facility] Basophil % 0.1 % 10/04/2024 12:40 AM [facility] Baso Absolute <0.04 0.00 - 0.10 x10(3)/mc L 10/04/2024 12:40 AM [facility] Immature Gran % 0.6 % 12:40 AM [facility] Immature Gran Absolute 0.09(H) 0.00 - 0.04 x10(3)/mc L 10/04/2024 12:40 AM [facility] Blood VENOUS BLOOD SPECIMEN / Unknown Venipuncture / Unknown 10/04/2024 12:29 AM EST 10/04/2024 12:35 AM EST Librado Patel MD HEMATOLOGY ORDERABLE S [facility] [address] * POC, GLUCOSE (10/04/2024 12:06 AM EST) [facility] Signature Glucometer, POC 158 65 - 199 mg/dL 10/04/2024 12:06 AM [facility] Comment:Supplemental ranges: <140 mg/dL before meals <180 mg/dL all other times of the day. Blood CAPILLARY BLOOD / Unknown 10/04/2024 12:06 AM EST 10/04/2024 12:06 AM EST Gissell Velazco MD POINT OF CARE TEST ORDERABLES [facility] [address] * POC, GLUCOSE (10/03/2024 7:47 PM EST) Glucometer, POC 180 65 - 199 mg/dL 10/03/2024 7:48 PM EST [facility] Comment:Supplemental ranges: <140 mg/dL before meals <180 mg/dL all other times of the day. Blood CAPILLARY BLOOD / Unknown 10/03/2024 7:47 PM EST 10/03/2024 7:48 PM EST Gissell Velazco MD POINT OF CARE TEST ORDERABLES Performing Organization Address City/[facility]/ZIP Co de Phone Number [facility] [place] [address] * POC, GLUCOSE (10/03/2024 3:49 PM EST) Glucometer, POC 157 65 - 199 mg/dL 10/03/2024 3:50 PM EST [facility] Comment:Supplemental ranges: <140 mg/dL before meals <180 mg/dL all other times of the day. Blood CAPILLARY BLOOD / Unknown 10/03/2024 3:49 PM EST 10/03/2024 3:50 PM EST Gissell Velazco MD POINT OF CARE TEST ORDERABLES [facility] [address] * POC, GLUCOSE (10/03/2024 11:24 AM EST) Glucometer, POC 149 65 - 199 mg/dL 10/03/2024 11:24 AM EST [facility] Comment:Supplemental ranges: <140 mg/dL before meals <180 mg/dL all other times of the day. Blood CAPILLARY BLOOD / Unknown 10/03/2024 11:24 AM EST 10/03/2024 11:25 AM EST Gissell Velazco MD POINT OF CARE TEST ORDERABLES [facility] [place] [address] * POC, GLUCOSE (10/03/2024 8:00 AM EST) Glucometer, POC 141 65 - 199 mg/dL 10/03/2024 8:00 AM EST [facility] Comment:Supplemental ranges: <140 mg/dL before meals <180 mg/dL all other times of the day. Blood CAPILLARY BLOOD / Unknown 10/03/2024 8:00 AM EST 10/03/2024 8:01 AM EST Gissell Velazco MD POINT OF CARE TEST ORDERABLES [facility] [place] [address] * Phosphorus (10/03/2024 4:05 AM EST) Phosphorus 2.7 2.5 - 4.5 mg/dL 10/03/2024 4:53 AM EST [facility] Blood VENOUS BLOOD SPECIMEN / Unknown Venipuncture / Unknown 10/03/2024 4:05 AM EST 10/03/2024 4:26 AM EST Librado Patel MD CHEMISTRY ORDERABLES [facility] [place] [address] * Magnesium (10/03/2024 4:05 AM EST) Magnesium 0.88 0.69 - 1.07 mMol/L 10/03/2024 4:53 AM [facility] Blood VENOUS BLOOD SPECIMEN / Unknown Venipuncture / Unknown 10/03/2024 4:05 AM EST 10/03/2024 4:26 AM EST Librado Patel MD CHEMISTRY ORDERABLES [facility] [place] [address] * (ABNORMAL) Basic Metabolic Panel (10/03/2024 4:05 AM EST) Pathologist [facility] Glucose 199 65 - 199 mg/dL 10/03/2024 4:53 AM [facility] Comment:Glucose Concentratio n >=200 mg/dL plus symptoms is consistent with Diabetes Mellitus. Blood Urea Nitrogen 22(H) 8 - 18 mg/dL 10/03/2024 4:53 AM [facility] Creatinine 0.35(L) 0.70 - 1.20 mg/dL 10/03/2024 4:53 AM [facility] Sodium 146(H) 135 - 145 mMol/L 10/03/2024 4:53 AM [facility] Potassium 4.0 3.5 - 5.0 mMol/L 10/03/2024 4:53 AM [facility] Chloride 108(H) 98 - 107 mMol/L 10/03/2024 4:53 AM [facility] Carbon Dioxide 30 22 - 31 mMol/L 10/03/2024 4:53 AM [facility] Anion Gap 8 5 - 15 mMol/L 10/03/2024 4:53 AM [facility] Calcium 9.1 8.5 - 10.5 mg/dL 10/03/2024 4:53 AM [facility] Est Glomerular Filtration Rate - Female 109 mL/min/1. 73 m?? 10/03/2024 4:53 AM [facility] Comment: This patient's estimated GFR [...] AM EST Librado Patel MD CHEMISTRY ORDERABLES [facility] [place] [id number] * (ABNORMAL) CBC (with Diff) (10/03/2024 4:05 AM EST) White Blood Cell 15.33(H) 4.00 - 9.50 x10(3)/mc L 10/03/2024 4:29 AM [facility] Red Blood Cell 3.44(L) 4.00 - 5.21 x10(6)/mc L 10/03/2024 4:29 AM [facility] Hemoglobin 10.5(L) 11.7 - 15.5 g/dL 10/03/2024 4:29 AM [facility] Hematocrit 32.4(L) 35.7 - 45.8 % 10/03/2024 4:29 AM [facility] Mean Cell Volume 94.2 82.6 - 94.4 fL 10/03/2024 4:29 AM [facility] Mean Cell Hemoglobin 30.5 27.1 - 32.0 pg 10/03/2024 4:29 AM [facility] Mean Cell Hemoglobin Concentration 32.4 31.7 - 35.0 g/dL 10/03/2024 4:29 AM [facility] Platelet 359(H) 145 - 357 x10(3)/mc L 10/03/2024 4:29 AM [facility] Mean Platelet Volume 9.8 7.6 - 12.9 fL 10/03/2024 4:29 AM [facility] RDW Standard Deviation 49.1(H) 37.0 - 46.0 fL 10/03/2024 4:29 AM [facility] RDW coefficient of variation 14.6(H) 11.5 - 14.1 % 10/03/2024 4:29 AM [facility] NRBC% auto 0.0 % 10/03/2024 4:29 AM [facility] NRBC Absolute <0.01 <0.01 x10(3)/mc L 10/03/2024 4:29 AM [facility] Neutrophil % 87.6 % 10/03/2024 4:29 AM [facility] Neutrophil Absolute (ANC) - Automated 13.43(H) 1.70 - 6.10 x10(3)/mc L 10/03/2024 4:29 AM [facility] Lymph % 5.0 % 10/03/2024 4:29 AM [facility] Lymph Absolute 0.77(L) 0.90 - 3.20 x10(3)/mc L 10/03/2024 4:29 AM [facility] Monocyte % 5.9 % 10/03/2024 4:29 AM [facility] Monocyte Absolute 0.90 0.30 - 0.90 x10(3)/mc L 10/03/2024 4:29 AM [facility] Eos % 0.7 % 10/03/2024 4:29 AM [facility] Eos Absolute 0.11 0.00 - 0.40 x10(3)/mc L 10/03/2024 4:29 AM EST [facility] Basophil % 0.1 % 10/03/2024 4:29 AM [facility] Baso Absolute <0.04 0.00 - 0.10 x10(3)/mc L 10/03/2024 4:29 AM [facility] Immature Gran % 0.7 % 4:29 AM [facility] Immature Gran Absolute 0.10(H) 0.00 - 0.04 x10(3)/mc L 10/03/2024 4:29 AM [facility] Blood VENOUS BLOOD SPECIMEN / Unknown Venipuncture / Unknown 10/03/2024 4:05 AM EST 10/03/2024 4:26 AM EST Librado Patel MD HEMATOLOGY ORDERABLE S [facility] [place] [address] * POC, GLUCOSE (10/03/2024 4:03 AM EST) Glucometer, POC 179 65 - 199 mg/dL 10/03/2024 4:04 AM [facility] Comment:Supplemental ranges: <140 mg/dL before meals <180 mg/dL all other times of the day. Blood CAPILLARY BLOOD / Unknown 10/03/2024 4:03 AM EST 10/03/2024 4:04 AM EST Gissell Velazco MD POINT OF CARE TEST ORDERABLES [facility] [place] [address] * POC, GLUCOSE (10/02/2024 11:39 PM EST) Glucometer, POC 159 65 - 199 mg/dL 10/02/2024 11:39 PM EST [facility] Comment:Supplemental ranges: <140 mg/dL before meals <180 mg/dL all other times of the day. Blood CAPILLARY BLOOD / Unknown 10/02/2024 11:39 PM EST 10/02/2024 11:39 PM EST Gissell Velazco MD POINT OF CARE TEST ORDERABLES Performing Organization Address City/[facility]/ZIP Co de Phone Number [facility] [place] [address] * POC, GLUCOSE (10/02/2024 8:33 PM EST) Glucometer, POC 141 65 - 199 mg/dL 10/02/2024 8:33 PM EST [facility] Comment:Supplemental ranges: <140 mg/dL before meals <180 mg/dL all other times of the day. Blood CAPILLARY BLOOD / Unknown 10/02/2024 8:33 PM EST 10/02/2024 8:33 PM EST Gissell Velazco MD POINT OF CARE TEST ORDERABLES Performing Organization Address City/[facility]/ZIP Co de Phone Number [facility] [place] [address] * POC, GLUCOSE (10/02/2024 4:08 PM EST) Glucometer, POC 175 65 - 199 mg/dL 10/02/2024 4:08 PM EST [facility] Comment:Supplemental ranges: <140 mg/dL before meals <180 mg/dL all other times of the day. Blood CAPILLARY BLOOD / Unknown 10/02/2024 4:08 PM EST 10/02/2024 4:08 PM EST Gissell Velazco MD POINT OF CARE TEST ORDERABLES [facility] [place] [address] * POC, GLUCOSE (10/02/2024 11:52 AM EST) Glucometer, POC 129 65 - 199 mg/dL 10/02/2024 11:52 AM EST [facility] Comment:Supplemental ranges: <140 mg/dL before meals <180 mg/dL all other times of the day. Blood CAPILLARY BLOOD / Unknown 10/02/2024 11:52 AM EST 10/02/2024 11:52 AM EST Gissell Velazco MD POINT OF CARE TEST ORDERABLES Performing Organization Address City/[facility]/ZIP Co de Phone Number [facility] [place] [address] * POC, GLUCOSE (10/02/2024 8:27 AM EST) Glucometer, POC 122 65 - 199 mg/dL 10/02/2024 8:27 AM EST [facility] Comment:Supplemental ranges: <140 mg/dL before meals <180 mg/dL all other times of the day. Blood CAPILLARY BLOOD / Unknown 10/02/2024 8:27 AM EST 10/02/2024 8:27 AM EST Gissell Velazco MD POINT OF CARE TEST ORDERABLES Performing Organization Address City/[facility] Co de Phone Number [facility] [address] * POC, GLUCOSE (10/02/2024 4:41 AM EST) Glucometer, POC 121 65 - 199 mg/dL 10/02/2024 4:41 AM EST [facility] Comment:Supplemental ranges: <140 mg/dL before meals <180 mg/dL all other times of the day. Blood CAPILLARY BLOOD / Unknown 10/02/2024 4:41 AM EST 10/02/2024 4:41 AM EST Gissell Velazco MD POINT OF CARE TEST ORDERABLES [facility] [place] [address] * Phosphorus (10/02/2024 1:49 AM EST) [facility] Phosphorus 2.9 2.5 - 4.5 mg/dL 10/02/2024 2:25 AM [facility] Blood VENOUS BLOOD SPECIMEN / Unknown Venipuncture / Unknown 10/02/2024 1:49 AM EST 10/02/2024 1:54 AM EST Librado Patel MD CHEMISTRY ORDERABLES [facility] [place] [address] * Magnesium (10/02/2024 1:49 AM EST) [facility] Magnesium 0.83 0.69 - 1.07 mMol/L 10/02/2024 2:25 AM [facility] Blood VENOUS BLOOD SPECIMEN / Unknown Venipuncture / Unknown 10/02/2024 1:49 AM EST 10/02/2024 1:54 AM EST Librado Patel MD CHEMISTRY ORDERABLES Performing Organization Address City/[facility]/ZIP Co de Phone Number [facility] [place] [address] * (ABNORMAL) Basic Metabolic Panel (10/02/2024 1:49 AM EST) [facility] Glucose 123 65 - 199 mg/dL 10/02/2024 2:25 AM [facility] Comment:Glucose Concentratio n >=200 mg/dL plus symptoms is consistent with Diabetes Mellitus. Blood Urea Nitrogen 27(H) 8 - 18 mg/dL 10/02/2024 2:25 AM EST [facility] Creatinine 0.39(L) 0.70 - 1.20 mg/dL 10/02/2024 2:25 AM [facility] Sodium 146(H) 135 - 145 mMol/L 10/02/2024 2:25 AM [facility] Potassium 3.6 3.5 - 5.0 mMol/L 10/02/2024 2:25 AM EST [facility] Chloride 108(H) 98 - 107 mMol/L 10/02/2024 2:25 AM EST [facility] Carbon Dioxide 28 22 - 31 mMol/L 10/02/2024 2:25 AM EST [facility] Anion Gap 10 5 - 15 mMol/L 10/02/2024 2:25 AM EST [facility] Calcium 8.7 8.5 - 10.5 mg/dL 10/02/2024 2:25 AM EST [facility] Est Glomerular Filtration Rate - Female 106 mL/min/1. 73 m?? 10/02/2024 2:25 AM EST [facility] Comment: This patient's estimated [...] AM EST Librado Patel MD CHEMISTRY ORDERABLES [facility] [place] [address] * (ABNORMAL) CBC (with Diff) (10/02/2024 1:49 AM EST) White Blood Cell 19.16(H) 4.00 - 9.50 x10(3)/mc L 10/02/2024 2:18 AM EST [facility] Red Blood Cell 3.35(L) 4.00 - 5.21 x10(6)/mc L 10/02/2024 2:18 AM [facility] Hemoglobin 10.1(L) 11.7 - 15.5 g/dL 10/02/2024 2:18 AM [facility] Hematocrit 31.1(L) 35.7 - 45.8 % 10/02/2024 2:18 AM [facility] Mean Cell Volume 92.8 82.6 - 94.4 fL 10/02/2024 2:18 AM [facility] Mean Cell Hemoglobin 30.1 27.1 - 32.0 pg 10/02/2024 2:18 AM [facility] Mean Cell Hemoglobin Concentration 32.5 31.7 - 35.0 g/dL 10/02/2024 2:18 AM [facility] Platelet 399(H) 145 - 357 x10(3)/mc L 10/02/2024 2:18 AM [facility] Mean Platelet Volume 10.0 7.6 - 12.9 fL 10/02/2024 2:18 AM [facility] RDW Standard Deviation 46.6(H) 37.0 - 46.0 fL 10/02/2024 2:18 AM [facility] RDW coefficient of variation 14.5(H) 11.5 - 14.1 % 10/02/2024 2:18 AM [facility] NRBC% auto 0.0 % 10/02/2024 2:18 AM [facility] NRBC Absolute <0.01 <0.01 x10(3)/mc L 10/02/2024 2:18 AM [facility] Neutrophil % 85.9 % 10/02/2024 2:18 AM [facility] Neutrophil Absolute (ANC) - Automated 16.45(H) 1.70 - 6.10 x10(3)/mc L 10/02/2024 2:18 AM [facility] Lymph % 6.6 % 10/02/2024 2:18 AM [facility] Lymph Absolute 1.27 0.90 - 3.20 x10(3)/mc L 10/02/2024 2:18 AM [facility] Monocyte % 6.3 % 10/02/2024 2:18 AM [facility] Monocyte Absolute 1.21(H) 0.30 - 0.90 x10(3)/mc L 10/02/2024 2:18 AM [facility] Eos % 0.3 % 10/02/2024 2:18 AM [facility] Eos Absolute 0.05 0.00 - 0.40 x10(3)/mc L 10/02/2024 2:18 AM [facility] Basophil % 0.1 % 10/02/2024 2:18 AM [facility] Baso Absolute <0.04 0.00 - 0.10 x10(3)/mc L 10/02/2024 2:18 AM [facility] Immature Gran % 0.8 % 2:18 AM [facility] Immature Gran Absolute 0.16(H) 0.00 - 0.04 x10(3)/mc L 10/02/2024 2:18 AM [facility] Blood VENOUS BLOOD SPECIMEN / Unknown Venipuncture / Unknown 10/02/2024 1:49 AM EST 10/02/2024 1:54 AM EST Librado Patel MD HEMATOLOGY ORDERABLE S [facility] [address] * POC, GLUCOSE (10/02/2024 12:22 AM EST) [facility] Signature Glucometer, POC 125 65 - 199 mg/dL 10/02/2024 12:23 AM EST [facility] Comment:Supplemental ranges: <140 mg/dL before meals <180 mg/dL all other times of the day. Blood CAPILLARY BLOOD / Unknown 10/02/2024 12:22 AM EST 10/02/2024 12:23 AM EST Gissell Velazco MD POINT OF CARE TEST ORDERABLES [facility] [place] [address] * POC, GLUCOSE (10/01/2024 7:44 PM EST) Glucometer, POC 161 65 - 199 mg/dL 10/01/2024 7:44 PM EST [facility] Comment:Supplemental ranges: <140 mg/dL before meals <180 mg/dL all other times of the day. Blood CAPILLARY BLOOD / Unknown 10/01/2024 7:44 PM EST 10/01/2024 7:44 PM EST Gissell Velazco MD POINT OF CARE TEST ORDERABLES Performing Organization Address City/[facility]/ZIP Co de Phone Number [facility] [place] [address] * POC, GLUCOSE (10/01/2024 4:22 PM EST) Glucometer, POC 190 65 - 199 mg/dL 10/01/2024 4:23 PM EST [facility] Comment:Supplemental ranges: <140 mg/dL before meals <180 mg/dL all other times of the day. Blood CAPILLARY BLOOD / Unknown 10/01/2024 4:22 PM EST 10/01/2024 4:23 PM EST Gissell Velazco MD POINT OF CARE TEST ORDERABLES [facility] [place] [address] * POC, GLUCOSE (10/01/2024 12:02 PM EST) Glucometer, POC 137 65 - 199 mg/dL 10/01/2024 12:03 PM EST [facility] Comment:Supplemental ranges: <140 mg/dL before meals <180 mg/dL all other times of the day. Blood CAPILLARY BLOOD / Unknown 10/01/2024 12:02 PM EST 10/01/2024 12:03 PM EST Gissell Velazco MD POINT OF CARE TEST ORDERABLES [facility] [address] * POC, GLUCOSE (10/01/2024 8:01 AM EST) Glucometer, POC 160 65 - 199 mg/dL 10/01/2024 8:02 AM EST [facility] Comment:Supplemental ranges: <140 mg/dL before meals <180 mg/dL all other times of the day. Blood CAPILLARY BLOOD / Unknown 10/01/2024 8:01 AM EST 10/01/2024 8:02 AM EST Gissell Velazco MD POINT OF CARE TEST ORDERABLES [facility] [place] [address] * POC, GLUCOSE (10/01/2024 3:39 AM EST) Glucometer, POC 162 65 - 199 mg/dL 10/01/2024 3:39 AM EST [facility] Comment:Supplemental ranges: <140 mg/dL before meals <180 mg/dL all other times of the day. Blood CAPILLARY BLOOD / Unknown 10/01/2024 3:39 AM EST 10/01/2024 3:39 AM EST Gissell Velazco MD POINT OF CARE TEST ORDERABLES [facility] [place] [address] * (ABNORMAL) Phosphorus (10/01/2024 12:21 AM EST) Phosphorus 2.4(L) 2.5 - 4.5 mg/dL 10/01/2024 1:03 AM [facility] Blood VENOUS BLOOD SPECIMEN / Unknown Venipuncture / Unknown 10/01/2024 12:21 AM EST 10/01/2024 12:33 AM EST Librado Patel MD CHEMISTRY ORDERABLES Performing Organization Address City/[facility]/ZIP Co de Phone Number [facility] [address] * Magnesium (10/01/2024 12:21 AM EST) [facility] Magnesium 0.84 0.69 - 1.07 mMol/L 10/01/2024 1:03 AM [facility] Blood VENOUS BLOOD SPECIMEN / Unknown Venipuncture / Unknown 10/01/2024 12:21 AM EST 10/01/2024 12:33 AM EST Librado Patel MD CHEMISTRY ORDERABLES Performing Organization Address City/[facility]/ZIP Co de Phone Number [facility] [place] [address] * (ABNORMAL) Basic Metabolic Panel (10/01/2024 12:21 AM EST) [facility] Glucose 124 65 - 199 mg/dL 10/01/2024 1:03 AM [facility] Comment:Glucose Concentratio n >=200 mg/dL plus symptoms is consistent with Diabetes Mellitus. Blood Urea Nitrogen 23(H) 8 - 18 mg/dL 10/01/2024 1:03 AM [facility] Creatinine 0.43(L) 0.70 - 1.20 mg/dL 10/01/2024 1:03 AM [facility] Sodium 141 135 - 145 mMol/L 10/01/2024 1:03 AM [facility] Potassium 3.2(L) 3.5 - 5.0 mMol/L 10/01/2024 1:03 AM [facility] Chloride 105 98 - 107 mMol/L 10/01/2024 1:03 AM EST [facility] Carbon Dioxide 28 22 - 31 mMol/L 10/01/2024 1:03 AM [facility] Anion Gap 8 5 - 15 mMol/L 10/01/2024 1:03 AM [facility] Calcium 8.7 8.5 - 10.5 mg/dL 10/01/2024 1:03 AM [facility] Est Glomerular Filtration Rate - Female 103 mL/min/1. 73 m?? 10/01/2024 1:03 AM [facility] Comment: This patient's estimated GFR [...] Patel MD CHEMISTRY ORDERABLES Performing Organization Address City/State/[facility] Co de Phone Number [facility] [address] * (ABNORMAL) CBC (with Diff) (10/01/2024 12:21 AM EST) White Blood Cell 22.24(H) 4.00 - 9.50 x10(3)/mc L 10/01/2024 12:37 AM EST [facility] Red Blood Cell 3.22(L) 4.00 - 5.21 x10(6)/mc L 10/01/2024 12:37 AM EST [facility] Hemoglobin 9.9(L) 11.7 - 15.5 g/dL 10/01/2024 12:37 AM [facility] Hematocrit 29.2(L) 35.7 - 45.8 % 10/01/2024 12:37 AM [facility] Mean Cell Volume 90.7 82.6 - 94.4 fL 10/01/2024 12:37 AM [facility] Mean Cell Hemoglobin 30.7 27.1 - 32.0 pg 10/01/2024 12:37 AM [facility] Mean Cell Hemoglobin Concentration 33.9 31.7 - 35.0 g/dL 10/01/2024 12:37 AM [facility] Platelet 370(H) 145 - 357 x10(3)/mc L 10/01/2024 12:37 AM [facility] Mean Platelet Volume 9.8 7.6 - 12.9 fL 10/01/2024 12:37 AM [facility] RDW Standard Deviation 44.3 37.0 - 46.0 fL 10/01/2024 12:37 AM [facility] RDW coefficient of variation 13.7 11.5 - 14.1 % 10/01/2024 12:37 AM [facility] NRBC% auto 0.0 % 10/01/2024 12:37 AM [facility] NRBC Absolute <0.01 <0.01 x10(3)/mc L 10/01/2024 12:37 AM [facility] Neutrophil % 90.0 % 10/01/2024 12:37 AM [facility] Neutrophil Absolute (ANC) - Automated 20.01(H) 1.70 - 6.10 x10(3)/mc L 10/01/2024 12:37 AM [facility] Lymph % 2.2 % 10/01/2024 12:37 AM [facility] Lymph Absolute 0.50(L) 0.90 - 3.20 x10(3)/mc L 10/01/2024 12:37 AM [facility] Monocyte % 5.8 % 10/01/2024 12:37 AM [facility] Monocyte Absolute 1.29(H) 0.30 - 0.90 x10(3)/mc L 10/01/2024 12:37 AM [facility] Eos % 0.0 % 10/01/2024 12:37 AM [facility] Eos Absolute <0.04 0.00 - 0.40 x10(3)/mc L 10/01/2024 12:37 AM [facility] Basophil % 0.1 % 10/01/2024 12:37 AM [facility] Baso Absolute <0.04 0.00 - 0.10 x10(3)/mc L 10/01/2024 12:37 AM [facility] Immature Gran % 1.9 % 12:37 AM [facility] Immature Gran Absolute 0.42(H) 0.00 - 0.04 x10(3)/mc L 10/01/2024 12:37 AM [facility] Blood VENOUS BLOOD SPECIMEN / Unknown Venipuncture / Unknown 10/01/2024 12:21 AM EST 10/01/2024 12:33 AM EST Librado Patel MD HEMATOLOGY ORDERABLE S [facility] [address] * (ABNORMAL) POC, GLUCOSE (09/30/2024 8:15 PM EST) Glucometer, POC 233(H) 65 - 199 mg/dL 09/30/2024 8:16 PM EST [facility] Comment:Supplemental ranges: <140 mg/dL before meals <180 mg/dL all other times of the day. Blood CAPILLARY BLOOD / Unknown 09/30/2024 8:15 PM EST 09/30/2024 8:16 PM EST Gissell Velazco MD POINT OF CARE TEST ORDERABLES [facility] [place] [address] * (ABNORMAL) POC, GLUCOSE (09/30/2024 4:36 PM EST) Glucometer, POC 207(H) 65 - 199 mg/dL 09/30/2024 4:39 PM EST [facility] Comment:Supplemental ranges: <140 mg/dL before meals <180 mg/dL all other times of the day. Blood CAPILLARY BLOOD / Unknown 09/30/2024 4:36 PM EST 09/30/2024 4:39 PM EST Gissell Velazco MD POINT OF CARE TEST ORDERABLES Performing Organization Address City/[facility] Co de Phone Number [facility] [place] [address] * POC, GLUCOSE (09/30/2024 11:53 AM EST) Glucometer, POC 196 65 - 199 mg/dL 09/30/2024 11:53 AM EST [facility] Comment:Supplemental ranges: <140 mg/dL before meals <180 mg/dL all other times of the day. Blood CAPILLARY BLOOD / Unknown 09/30/2024 11:53 AM EST 09/30/2024 11:54 AM EST Gissell Velazco MD POINT OF CARE TEST ORDERABLES [facility] [place] [address] * (ABNORMAL) POC, GLUCOSE (09/30/2024 9:05 AM EST) Glucometer, POC 229(H) 65 - 199 mg/dL 09/30/2024 9:05 AM EST [facility] Comment:Supplemental ranges: <140 mg/dL before meals <180 mg/dL all other times of the day. Blood CAPILLARY BLOOD / Unknown 09/30/2024 9:05 AM EST 09/30/2024 9:05 AM EST Gissell Velazco MD POINT OF CARE TEST ORDERABLES Performing Organization Address City/[facility]/ZIP Co de Phone Number [facility] [place] [address] * POC, GLUCOSE (09/30/2024 4:53 AM EST) Glucometer, POC 165 65 - 199 mg/dL 09/30/2024 4:53 AM EST [facility] Comment:Supplemental ranges: <140 mg/dL before meals <180 mg/dL all other times of the day. Blood CAPILLARY BLOOD / Unknown 09/30/2024 4:53 AM EST 09/30/2024 4:54 AM EST Gissell Velazco MD POINT OF CARE TEST ORDERABLES Performing Organization Address City/[facility]/ZIP Co de Phone Number [facility] [address] * Phosphorus (09/30/2024 1:44 AM EST) Phosphorus 2.9 2.5 - 4.5 mg/dL 09/30/2024 2:22 AM EST [facility] Blood VENOUS BLOOD SPECIMEN / Unknown Venipuncture / Unknown 09/30/2024 1:44 AM EST 09/30/2024 1:52 AM EST Librado Patel MD CHEMISTRY ORDERABLES [facility] [place] [address] * Magnesium (09/30/2024 1:44 AM EST) Magnesium 0.79 0.69 - 1.07 mMol/L 09/30/2024 2:22 AM EST [facility] Blood VENOUS BLOOD SPECIMEN / Unknown Venipuncture / Unknown 09/30/2024 1:44 AM EST 09/30/2024 1:52 AM EST Librado Patel MD CHEMISTRY ORDERABLES [facility] [address] * (ABNORMAL) Basic Metabolic Panel (09/30/2024 1:44 AM EST) Glucose 141 65 - 199 mg/dL 09/30/2024 2:22 AM [facility] Comment:Glucose Concentratio n >=200 mg/dL plus symptoms is consistent with Diabetes Mellitus. Blood Urea Nitrogen 16 8 - 18 mg/dL 09/30/2024 2:22 AM [facility] Creatinine 0.47(L) 0.70 - 1.20 mg/dL 09/30/2024 2:22 AM [facility] Sodium 139 135 - 145 mMol/L 09/30/2024 2:22 AM [facility] Potassium 3.9 3.5 - 5.0 mMol/L 09/30/2024 2:22 AM [facility] Chloride 104 98 - 107 mMol/L 09/30/2024 2:22 AM [facility] Carbon Dioxide 25 22 - 31 mMol/L 09/30/2024 2:22 AM [facility] Anion Gap 10 5 - 15 mMol/L 09/30/2024 2:22 AM [facility] Calcium 8.4(L) 8.5 - 10.5 mg/dL 09/30/2024 2:22 AM [facility] Est Glomerular Filtration Rate - Female 101 mL/min/1. 73 m?? 09/30/2024 2:22 AM [facility] Comment: This patient's estimated GFR [...] AM EST Librado Patel MD CHEMISTRY ORDERABLES [facility] [place] [address] * (ABNORMAL) CBC (with Diff) (09/30/2024 1:44 AM EST) White Blood Cell 25.89(H) 4.00 - 9.50 x10(3)/mc L 09/30/2024 1:59 AM [facility] Red Blood Cell 3.34(L) 4.00 - 5.21 x10(6)/mc L 09/30/2024 1:59 AM [facility] Hemoglobin 10.1(L) 11.7 - 15.5 g/dL 09/30/2024 1:59 AM [facility] Hematocrit 31.0(L) 35.7 - 45.8 % 09/30/2024 1:59 AM [facility] Mean Cell Volume 92.8 82.6 - 94.4 fL 09/30/2024 1:59 AM [facility] Mean Cell Hemoglobin 30.2 27.1 - 32.0 pg 09/30/2024 1:59 AM [facility] Mean Cell Hemoglobin Concentration 32.6 31.7 - 35.0 g/dL 09/30/2024 1:59 AM [facility] Platelet 376(H) 145 - 357 x10(3)/mc L 09/30/2024 1:59 AM [facility] Mean Platelet Volume 9.7 7.6 - 12.9 fL 09/30/2024 1:59 AM [facility] RDW Standard Deviation 46.5(H) 37.0 - 46.0 fL 09/30/2024 1:59 AM [facility] RDW coefficient of variation 14.2(H) 11.5 - 14.1 % 09/30/2024 1:59 AM [facility] NRBC% auto 0.0 % 09/30/2024 1:59 AM [facility] NRBC Absolute <0.01 <0.01 x10(3)/mc L 09/30/2024 1:59 AM [facility] Neutrophil % 85.9 % 09/30/2024 1:59 AM [facility] Neutrophil Absolute (ANC) - Automated 22.26(H) 1.70 - 6.10 x10(3)/mc L 09/30/2024 1:59 AM [facility] Lymph % 5.1 % 09/30/2024 1:59 AM [facility] Lymph Absolute 1.33 0.90 - 3.20 x10(3)/mc L 09/30/2024 1:59 AM [facility] Monocyte % 5.6 % 09/30/2024 1:59 AM [facility] Monocyte Absolute 1.44(H) 0.30 - 0.90 x10(3)/mc L 09/30/2024 1:59 AM [facility] Eos % 1.2 % 09/30/2024 1:59 AM [facility] Eos Absolute 0.30 0.00 - 0.40 x10(3)/mc L 09/30/2024 1:59 AM [facility] Basophil % 0.2 % 09/30/2024 1:59 AM [facility] Baso Absolute 0.05 0.00 - 0.10 x10(3)/mc L 09/30/2024 1:59 AM EST [facility] Immature Gran % 2.0 % 1:59 AM [facility] Immature Gran Absolute 0.51(H) 0.00 - 0.04 x10(3)/mc L 09/30/2024 1:59 AM [facility] Blood VENOUS BLOOD SPECIMEN / Unknown Venipuncture / Unknown 09/30/2024 1:44 AM EST 09/30/2024 1:52 AM EST Librado Patel MD HEMATOLOGY ORDERABLE S [facility] [place] [address] * POC, GLUCOSE (09/29/2024 11:37 PM EST) Glucometer, POC 133 65 - 199 mg/dL 09/29/2024 11:38 PM EST [facility] Comment:Supplemental ranges: <140 mg/dL before meals <180 mg/dL all other times of the day. Blood CAPILLARY BLOOD / Unknown 09/29/2024 11:37 PM EST 09/29/2024 11:38 PM EST Gissell Velazco MD POINT OF CARE TEST ORDERABLES [facility] [place] [address] * POC, GLUCOSE (09/29/2024 8:09 PM EST) Glucometer, POC 109 65 - 199 mg/dL 09/29/2024 8:10 PM EST [facility] Comment:Supplemental ranges: <140 mg/dL before meals <180 mg/dL all other times of the day. Blood CAPILLARY BLOOD / Unknown 09/29/2024 8:09 PM EST 09/29/2024 8:10 PM EST Gissell Velazco MD POINT OF CARE TEST ORDERABLES Performing Organization Address [facility] Co de Phone Number [facility] [place] [address] * POC, GLUCOSE (09/29/2024 6:14 PM EST) Glucometer, POC 121 65 - 199 mg/dL 09/29/2024 6:14 PM EST [facility] Comment:Supplemental ranges: <140 mg/dL before meals <180 mg/dL all other times of the day. Blood CAPILLARY BLOOD / Unknown 09/29/2024 6:14 PM EST 09/29/2024 6:15 PM EST Gissell Velazco MD POINT OF CARE TEST ORDERABLES Performing Organization Address [facility] Co de Phone Number [facility] [place] [place] [address] * XR Chest One View (09/29/2024 1:13 PM EST) WORKSTATION ID [id number] DH RAD Anatomical Region Laterality Modality Chest [...] who have questions please contact the health healthcare consultant that requested your imaging first. ? Narrative [...] patients who have questions please contactthe health healthcare consultant that requested your imaging first. Gissell M Paul-Caldera MD IMG DX ORDERABLES * POC, GLUCOSE (09/29/2024 11:29 AM EST) Glucometer, POC 135 65 - 199 mg/dL 09/29/2024 11:30 AM EST [facility] Comment:Supplemental ranges: <140 mg/dL before meals <180 mg/dL all other times of the day. Blood CAPILLARY BLOOD / Unknown 09/29/2024 11:29 AM EST 09/29/2024 11:30 AM EST Gissell Velazco MD POINT OF CARE TEST ORDERABLES [facility] [place] [address] * POC, GLUCOSE (09/29/2024 8:37 AM EST) Glucometer, POC 126 65 - 199 mg/dL 09/29/2024 8:38 AM EST [facility] Comment:Supplemental ranges: <140 mg/dL before meals <180 mg/dL all other times of the day. Blood CAPILLARY BLOOD / Unknown 09/29/2024 8:37 AM EST 09/29/2024 8:39 AM EST Gissell Velazco MD POINT OF CARE TEST ORDERABLES [facility] [place] [id number] * POC, GLUCOSE (09/29/2024 4:47 AM EST) Glucometer, POC 145 65 - 199 mg/dL 09/29/2024 4:47 AM EST [facility] Comment:Supplemental ranges: <140 mg/dL before meals <180 mg/dL all other times of the day. Blood CAPILLARY BLOOD / Unknown 09/29/2024 4:47 AM EST 09/29/2024 4:48 AM EST Dinesh Bauer MD POINT OF CARE TEST ORDERABLES [facility] [place] [address] * Magnesium (09/29/2024 1:09 AM EST) [facility] Magnesium 0.77 0.69 - 1.07 mMol/L 09/29/2024 1:51 AM [facility] Blood VENOUS BLOOD SPECIMEN / Unknown Venipuncture / Unknown 09/29/2024 1:09 AM EST 09/29/2024 1:27 AM EST Librado Patel MD CHEMISTRY ORDERABLES [facility] [place] [address] * (ABNORMAL) CBC (with Diff) (09/29/2024 1:09 AM EST) [facility] White Blood Cell 26.40(H) 4.00 - 9.50 x10(3)/mc L 09/29/2024 1:36 AM [facility] Red Blood Cell 3.36(L) 4.00 - 5.21 x10(6)/mc L 09/29/2024 1:36 AM [facility] Hemoglobin 10.0(L) 11.7 - 15.5 g/dL 09/29/2024 1:36 AM [facility] Hematocrit 30.9(L) 35.7 - 45.8 % 09/29/2024 1:36 AM [facility] Mean Cell Volume 92.0 82.6 - 94.4 fL 09/29/2024 1:36 AM [facility] Mean Cell Hemoglobin 29.8 27.1 - 32.0 pg 09/29/2024 1:36 AM [facility] Mean Cell Hemoglobin Concentration 32.4 31.7 - 35.0 g/dL 09/29/2024 1:36 AM [facility] Platelet 397(H) 145 - 357 x10(3)/mc L 09/29/2024 1:36 AM [facility] Mean Platelet Volume 10.0 7.6 - 12.9 fL 09/29/2024 1:36 AM [facility] RDW Standard Deviation 45.3 37.0 - 46.0 fL 09/29/2024 1:36 AM [facility] RDW coefficient of variation 14.0 11.5 - 14.1 % 09/29/2024 1:36 AM [facility] NRBC% auto 0.0 % 09/29/2024 1:36 AM [facility] NRBC Absolute <0.01 <0.01 x10(3)/mc L 09/29/2024 1:36 AM [facility] Neutrophil % 86.2 % 09/29/2024 1:36 AM [facility] Neutrophil Absolute (ANC) - Automated 22.77(H) 1.70 - 6.10 x10(3)/mc L 09/29/2024 1:36 AM [facility] Lymph % 5.9 % 09/29/2024 1:36 AM [facility] Lymph Absolute 1.56 0.90 - 3.20 x10(3)/mc L 09/29/2024 1:36 AM [facility] Monocyte % 4.6 % 09/29/2024 1:36 AM [facility] Monocyte Absolute 1.21(H) 0.30 - 0.90 x10(3)/mc L 09/29/2024 1:36 AM [facility] Eos % 0.8 % 09/29/2024 1:36 AM [facility] Eos Absolute 0.21 0.00 - 0.40 x10(3)/mc L 09/29/2024 1:36 AM [facility] Basophil % 0.2 % 09/29/2024 1:36 AM [facility] Baso Absolute 0.04 0.00 - 0.10 x10(3)/mc L 09/29/2024 1:36 AM EST [facility] Immature Gran % 2.3 % 1:36 AM EST [facility] Immature Gran Absolute 0.61(H) 0.00 - 0.04 x10(3)/mc L 09/29/2024 1:36 AM EST [facility] Blood VENOUS BLOOD SPECIMEN / Unknown Venipuncture / Unknown 09/29/2024 1:09 AM EST 09/29/2024 1:27 AM EST Librado Patel MD HEMATOLOGY ORDERABLE S Performing Organization Address City/[facility]/ZIP Co de Phone Number [facility] [place] [address] * POC, GLUCOSE (09/29/2024 12:53 AM EST) Glucometer, POC 146 65 - 199 mg/dL 09/29/2024 12:53 AM EST [facility] Comment:Supplemental ranges: <140 mg/dL before meals <180 mg/dL all other times of the day. Blood CAPILLARY BLOOD / Unknown 09/29/2024 12:53 AM EST 09/29/2024 12:53 AM EST Dinesh Bauer MD POINT OF CARE TEST ORDERABLES [facility] [place] [address] * POC, GLUCOSE (09/28/2024 10:25 PM EST) Glucometer, POC 131 65 - 199 mg/dL 09/28/2024 10:26 PM EST [facility] Comment:Supplemental ranges: <140 mg/dL before meals <180 mg/dL all other times of the day. Blood CAPILLARY BLOOD / Unknown 09/28/2024 10:25 PM EST 09/28/2024 10:26 PM EST Dinesh Bauer MD POINT [place] [address] * XR Chest One View (09/28/2024 7:58 PM EST) WORKSTATION ID [id number] RAD Anatomical Region Laterality Modality Chest N/A [...] who have questions please contact the health healthcare consultant that requested your imaging first. ? Narrative [...] and has its distal tip below the [id number]. A right-sided PICC has its distal tip [...] and has its distal tip below the [id number]. A right-sided PICC has its distal tip [...] patients who have questions please contactthe health healthcare consultant that requested your imaging first. Dinesh Bauer MD IMG DX ORDERABLES * POC, GLUCOSE (09/28/2024 7:50 PM EST) [facility] Signature Glucometer, POC 130 65 - 199 mg/dL 09/28/2024 7:51 PM EST [facility] Comment:Supplemental ranges: <140 mg/dL before meals <180 mg/dL all other times of the day. Blood CAPILLARY BLOOD / Unknown 09/28/2024 7:50 PM EST 09/28/2024 7:51 PM EST Dinesh Bauer MD POINT OF CARE TEST ORDERABLES [facility] [place] [address] * POC, GLUCOSE (09/28/2024 3:52 PM EST) Glucometer, POC 137 65 - 199 mg/dL 09/28/2024 3:53 PM EST [facility] Comment:Supplemental ranges: <140 mg/dL before meals <180 mg/dL all other times of the day. Blood CAPILLARY BLOOD / Unknown 09/28/2024 3:52 PM EST 09/28/2024 3:53 PM EST Dinesh Bauer MD POINT OF CARE TEST ORDERABLES Performing Organization Address [facility] Co de Phone Number [facility] [place] [address] * POC, GLUCOSE (09/28/2024 12:19 PM EST) Glucometer, POC 163 65 - 199 mg/dL 09/28/2024 12:19 PM EST [facility] Comment:Supplemental ranges: <140 mg/dL before meals <180 mg/dL all other times of the day. Blood CAPILLARY BLOOD / Unknown 09/28/2024 12:19 PM EST 09/28/2024 12:20 PM EST Dinesh Bauer MD POINT OF CARE TEST ORDERABLES Performing Organization Address [facility] Co de Phone Number [facility] [place] [address] * POC, GLUCOSE (09/28/2024 7:54 AM EST) Glucometer, POC 161 65 - 199 mg/dL 09/28/2024 7:54 AM EST [facility] Comment:Supplemental ranges: <140 mg/dL before meals <180 mg/dL all other times of the day. Blood CAPILLARY BLOOD / Unknown 09/28/2024 7:54 AM EST 09/28/2024 7:54 AM EST Librado Patel MD POINT OF CARE TEST O RDERABLES [facility] [place] [address] * (ABNORMAL) Troponin-T, High Sensitivity 3 Hour (09/28/2024 6:37 AM EST) Troponin-T, High Sensitivity 16(H) <=14 ng/L 09/28/2024 7:25 AM EST [facility] Comment: This patient's troponin [...] troponin value can be found in the [facility] Test Catalog Troponin - https://[facility].testcatalog.org/catalogs/565/files/85308 Reference: Fourth Birdseye Definition of Myocardial Infarction. Journal of the [place] [employer] 2018;72:8954-3224 Troponin-T, HS 3 hr delta 09/28/2024 7:25 AM EST [facility] Comment:Delta troponin value not calculated, sample collected outside of delta calculation time limit. Blood VENOUS BLOOD SPECIMEN / Unknown Venipuncture / Unknown 09/28/2024 6:37 AM EST 09/28/2024 6:53 AM EST Teresa Multani RUBBER THREAD SPOOLER CHEMISTRY ORDERABL ES Performing Organization Address City/[facility]/ZIP Co de Phone Number [facility] [place] [address] * (ABNORMAL) Troponin-T, High Sensitivity 1 Hour (09/28/2024 5:00 AM EST) Troponin-T, High Sensitivity 16(H) <=14 ng/L 09/28/2024 5:40 AM EST [facility] Comment: This patient's troponin [...] troponin value can be found in the [facility] Test Catalog Troponin - https://[facility]-.testcatalog.org/catalogs/565/files/71844 Reference: Fourth Birdseye Definition of Myocardial Infarction. Journal of the [place] [employer] 2018;72:2560-0909 Troponin-T, HS 1 hr delta 1 ng/L 09/28/2024 5:40 AM EST [facility] Comment:The 1 hour Troponin T delta value is the absolute difference between the Troponin T concentrations of the initial and subsequent sample collected between 45 - 120 minutes following the initial collection. Blood BLOOD SAMPLE TAKEN FROM CENTRAL LINE / Unknown Venipuncture / Unknown 09/28/2024 5:00 AM EST 09/28/2024 5:08 AM EST Teresa Multani APRN CHEMISTRY ORDERABL ES [facility] [place] [address] * POC, GLUCOSE (09/28/2024 4:16 AM EST) Glucometer, POC 174 65 - 199 mg/dL 09/28/2024 4:17 AM EST [facility] Comment:Supplemental ranges: <140 mg/dL before meals <180 mg/dL all other times of the day. Blood CAPILLARY BLOOD / Unknown 09/28/2024 4:16 AM EST 09/28/2024 4:17 AM EST Librado Patel MD POINT OF CARE TEST O RDERABLES [facility] [place] [address] * XR Chest One View (09/28/2024 4:06 AM EST) Pathologist [employer] WORKSTATION ID [id number] RAD Anatomical Region Laterality Modality Chest N/A [...] who have questions please contact the health healthcare consultant that requested your imaging first. ? Narrative [...] patients who have questions please contactthe health healthcare consultant that requested your imaging first. Teresa Multani [employer]ER [employer] SPO[employer] IMG DX ORDERABLES * EKG 12 Lead (09/28/2024 3:59 AM EST) Ventricular rate 104 BPM MUSE SYSTEM Atrial Rate 104 BPM MUSE SYSTEM P-R Interval 138 ms MUSE SYSTEM QRS Duration 64 ms MUSE SYSTEM Q-T Interval 342 ms MUSE SYSTEM QTC Calculated (Bezet) 449 ms MUSE SYSTEM Calculated P [place] 44 degrees MUSE SYSTEM Calculated R [place] -22 degrees MUSE SYSTEM Calculated T [place] 34 degrees MUSE SYSTEM INTERPRETATION Sinus tachycardia [...] (Bezet) 449 ms MUSE SYSTEM Calculated P [place] 44 degrees MUSE SYSTEM Calculated R [place] -22 degrees MUSE SYSTEM Calculated T [place] 34 degrees MUSE SYSTEM INTERPRETATION Sinus tachycardia with Premature atrial complexes Low voltage QRS Cannot rule out Anterior infarct , age undetermined Abnormal ECG When compared with ECG of 16-SEP-2024 15:33, Premature atrial complexes are now Present Confirmed by fellow Johanna Beatty ([id number]) on 09/29/2024 10:55:55 AM Confirmed by MD BAYRON, MARY ([id number]) on 09/29/2024 8:30:41 PM MUSE SYSTEM 09/28/2024 3:59 AM EST 09/29/2024 8:30 PM EST Librado Patel MD ECG ORDERABLES MUSE SYSTEM * (ABNORMAL) Scan, Peripheral Blood (09/28/2024 3:58 AM EST) RBC Morphology Abnormal 09/28/2024 4:58 AM EST [facility] Platelet Estimate Increased(A) Normal 09/28 4:58 AM EST [facility] Polychromasia Present 09/28/2024 4:58 AM EST [facility] WBC MORPHOLOGY See Comment(A) (none) 09/28/2024 4:58 AM EST [facility] Comment:Vacuolated Grans Blood VENOUS BLOOD SPECIMEN / Unknown Venipuncture / Unknown 09/28/2024 3:58 AM EST 09/28/2024 4:03 AM EST Librado Patel MD HEMATOLOGY ORDERABLE S Performing Organization Address City/[facility]/ZIP Co de Phone Number [facility] [place] [address] * (ABNORMAL) Troponin-T, High Sensitivity (09/28/2024 3:58 AM EST) Troponin-T, High Sensitivity Initial 15(H) <=14 ng/L 09/28/2024 4:34 AM EST [facility] Comment: This patient's troponin T concentration was determined using the Ayir 5th Generation troponin T assay. The 99th [...] troponin value can be found in the [facility] Test Catalog Troponin - https://one-.testcatalog.org/catalogs/565/files/65640 Reference: Fourth Birdseye Definition of Myocardial Infarction. Journal of the [place] [employer] 2018;72:9553-0368 Blood VENOUS BLOOD SPECIMEN / Unknown Venipuncture / Unknown 09/28/2024 3:58 AM EST 09/28/2024 4:03 AM EST Teresa Multani APRN CHEMISTRY ORDERABL ES [facility] [place] [address] * (ABNORMAL) CBC (with Diff) (09/28/2024 3:58 AM EST) White Blood Cell 35.37(HHH ) 4.00 - 9.50 x10(3)/mc L 09/28/2024 4:58 AM EST [facility] Red Blood Cell 3.70(L) 4.00 - 5.21 x10(6)/mc L 09/28/2024 4:58 AM EST [facility] Hemoglobin 11.0(L) 11.7 - 15.5 g/dL 09/28/2024 4:58 AM EST [facility] Hematocrit 34.0(L) 35.7 - 45.8 % 09/28/2024 4:58 AM EST [facility] Mean Cell Volume 91.9 82.6 - 94.4 fL 09/28/2024 4:58 AM [facility] Mean Cell Hemoglobin 29.7 27.1 - 32.0 pg 09/28/2024 4:58 AM [facility] Mean Cell Hemoglobin Concentration 32.4 31.7 - 35.0 g/dL 09/28/2024 4:58 AM [facility] Platelet 443(H) 145 - 357 x10(3)/mc L 09/28/2024 4:58 AM [facility] Mean Platelet Volume 10.2 7.6 - 12.9 fL 09/28/2024 4:58 AM [facility] RDW Standard Deviation 43.8 37.0 - 46.0 fL 09/28/2024 4:58 AM [facility] RDW coefficient of variation 13.7 11.5 - 14.1 % 09/28/2024 4:58 AM [facility] NRBC% auto 0.0 % 09/28/2024 4:58 AM [facility] NRBC Absolute <0.01 <0.01 x10(3)/mc L 09/28/2024 4:58 AM [facility] Neutrophil % 87.0 % 09/28/2024 4:58 AM [facility] Comment:This is an appended report. These results have been appended to a previously preliminary verified report. Neutrophil Absolute (ANC) - Automated 30.79(H) 1.70 - 6.10 x10(3)/mc L 09/28/2024 4:58 AM [facility] Comment:This is an appended report. These results have been appended to a previously preliminary verified report. Lymph % 4.2 % 09/28/2024 4:58 AM [facility] Comment:This is an appended report. These results have been appended to a previously preliminary verified report. Lymph Absolute 1.50 0.90 - 3.20 x10(3)/mc L 09/28/2024 4:58 AM [facility] Comment:This is an appended report. These results have been appended to a previously preliminary verified report. Monocyte % 4.5 % 09/28/2024 4:58 AM [facility] Comment:This is an appended report. These results have been appended to a previously preliminary verified report. Monocyte Absolute 1.60(H) 0.30 - 0.90 x10(3)/mc L 09/28/2024 4:58 AM [facility] Comment:This is an appended report. These results have been appended to a previously preliminary verified report. Eos % 0.5 % 09/28/2024 4:58 AM [facility] Comment:This is an appended report. These results have been appended to a previously preliminary verified report. Eos Absolute 0.16 0.00 - 0.40 x10(3)/mc L 09/28/2024 4:58 AM [facility] Comment:This is an appended report. These results have been appended to a previously preliminary verified report. Basophil % 0.3 % 09/28/2024 4:58 AM [facility] Comment:This is an appended report. These results have been appended to a previously preliminary verified report. Baso Absolute 0.09 0.00 - 0.10 x10(3)/mc L 09/28/2024 4:58 AM [facility] Comment:This is an appended report. These results have been appended to a previously preliminary verified report. Immature Gran % 3.5 % 4:58 AM [facility] Comment:This is an appended report. These results have been appended to a previously preliminary verified report. Immature Gran Absolute 1.23(H) 0.00 - 0.04 x10(3)/mc L 09/28/2024 4:58 AM [facility] Comment:This is an appended report. These results have been appended to a previously preliminary verified report. Blood VENOUS BLOOD SPECIMEN / Unknown Venipuncture / Unknown 09/28/2024 3:58 AM EST 09/28/2024 4:03 AM EST Librado Patel MD HEMATOLOGY ORDERABLE S [facility] [place] [address] * Phosphorus (09/28/2024 3:58 AM EST) Phosphorus 2.7 2.5 - 4.5 mg/dL 09/28/2024 4:35 AM EST [facility] Blood VENOUS BLOOD SPECIMEN / Unknown Venipuncture / Unknown 09/28/2024 3:58 AM EST 09/28/2024 4:03 AM EST Librado Patel MD CHEMISTRY ORDERABLES Performing Organization Address City/[facility]/ZIP Co de Phone Number [facility] [place] [address] * Magnesium (09/28/2024 3:58 AM EST) Magnesium 0.82 0.69 - 1.07 mMol/L 09/28/2024 4:35 AM EST [facility] Blood VENOUS BLOOD SPECIMEN / Unknown Venipuncture / Unknown 09/28/2024 3:58 AM EST 09/28/2024 4:03 AM EST Librado Patel MD CHEMISTRY ORDERABLES Performing Organization Address City/[facility]/ZIP Co de Phone Number [facility] [place] [address] * (ABNORMAL) Basic Metabolic Panel (09/28/2024 3:58 AM EST) Glucose 161 65 - 199 mg/dL 09/28/2024 4:35 AM EST [facility] Comment:Glucose Concentratio n >=200 mg/dL plus symptoms is consistent with Diabetes Mellitus. Blood Urea Nitrogen 21(H) 8 - 18 mg/dL 09/28/2024 4:35 AM EST [facility] Creatinine 0.49(L) 0.70 - 1.20 mg/dL 09/28/2024 4:35 AM EST [facility] Sodium 138 135 - 145 mMol/L 09/28/2024 4:35 AM [facility] Potassium 4.0 3.5 - 5.0 mMol/L 09/28/2024 4:35 AM [facility] Chloride 106 98 - 107 mMol/L 09/28/2024 4:35 AM [facility] Carbon Dioxide 22 22 - 31 mMol/L 09/28/2024 4:35 AM [facility] Anion Gap 10 5 - 15 mMol/L 09/28/2024 4:35 AM [facility] Calcium 8.3(L) 8.5 - 10.5 mg/dL 09/28/2024 4:35 AM [facility] Est Glomerular Filtration Rate - Female 100 mL/min/1. 73 m?? 09/28/2024 4:35 AM [facility] Comment: This patient's estimated GFR [...] AM EST Librado Patel MD CHEMISTRY ORDERABLES [facility] [place] [address] * POC, GLUCOSE (09/27/2024 11:39 PM EST) [facility] Signature Glucometer, POC 125 65 - 199 mg/dL 09/27/2024 11:40 PM EST [facility] Comment:Supplemental ranges: <140 mg/dL before meals <180 mg/dL all other times of the day. Blood CAPILLARY BLOOD / Unknown 09/27/2024 11:39 PM EST 09/27/2024 11:40 PM EST Librado Patel MD POINT OF CARE TEST O RDKALE Performing Organization Address City/[facility] Co de Phone Number [facility] [place] [address] * POC, GLUCOSE (09/27/2024 7:52 PM EST) Glucometer, POC 144 65 - 199 mg/dL 09/27/2024 7:53 PM EST [facility] Comment:Supplemental ranges: <140 mg/dL before meals <180 mg/dL all other times of the day. Blood CAPILLARY BLOOD / Unknown 09/27/2024 7:52 PM EST 09/27/2024 7:53 PM EST Librado Patel MD POINT OF CARE TEST O ALDO Performing Organization Address [facility] Co de Phone Number [facility] [place] [address] * Potassium (09/27/2024 4:46 PM EST) Pathologist [facility] Potassium 4.0 3.5 - 5.0 mMol/L 09/27/2024 5:24 PM EST [facility] Blood VENOUS BLOOD SPECIMEN / Unknown Venipuncture / Unknown 09/27/2024 4:46 PM EST 09/27/2024 5:00 PM EST Librado Patel MD CHEMISTRY ORDERABLES Performing Organization Address City/[facility] Co de Phone Number [facility] [place] [address] * POC, GLUCOSE (09/27/2024 4:38 PM EST) Glucometer, POC 123 65 - 199 mg/dL 09/27/2024 4:38 PM EST [facility] Comment:Supplemental ranges: <140 mg/dL before meals <180 mg/dL all other times of the day. Blood CAPILLARY BLOOD / Unknown 09/27/2024 4:38 PM EST 09/27/2024 4:38 PM EST Librado Patel MD POINT OF CARE TEST O ALDO Performing Organization Address [facility] Co de Phone Number [facility] [address] * POC, GLUCOSE (09/27/2024 12:53 PM EST) Glucometer, POC 145 65 - 199 mg/dL 09/27/2024 12:54 PM EST [facility] Comment:Supplemental ranges: <140 mg/dL before meals <180 mg/dL all other times of the day. Blood CAPILLARY BLOOD / Unknown 09/27/2024 12:53 PM EST 09/27/2024 12:54 PM EST Librado Patel MD POINT OF CARE TEST O ALDO Performing Organization Address City/[facility] Co de Phone Number [facility] [place] [address] * C diff Screen (09/27/2024 8:46 AM EST) Pathologist [facility] C Diff Interp Negative Negative 09/27/2024 1:42 PM EST [facility] Comment:Clostridioides diffi cile is not present in the specimen. If patient is having diarrhea suspected to be from an infectious cause, then Soap & Water Contact Precautions are still required. If patient is having diarrhea with no suspected infectious cause use standard precautions. C Diff PCR Negative Negative 09/27/2024 1:42 PM EST [facility] Stool STOOL SPECIMEN / Unknown Non Blood Collection / Unknown 09/27/2024 8:46 AM EST 09/27/2024 8:59 AM EST Mariola Calixto MD MICROBIOLOGY - GEN ERAL ORDERABLES Performing Organization Address City/[facility] Co de Phone Number [facility] [place] [address] * C Diff PCR (09/27/2024 8:46 AM EST) Stool STOOL SPECIMEN / Unknown Non Blood Collection / Unknown 09/27/2024 8:46 AM EST 09/27/2024 8:59 AM EST Mariola Calixto MD MICROBIOLOGY - GEN ERAL ORDERABLES Performing Organization Address City/[facility] Co de Phone Number [facility] [place] [place] [address] * POC, GLUCOSE (09/27/2024 8:24 AM EST) Glucometer, POC 106 65 - 199 mg/dL 09/27/2024 8:25 AM EST [facility] Comment:Supplemental ranges: <140 mg/dL before meals <180 mg/dL all other times of the day. Blood CAPILLARY BLOOD / Unknown 09/27/2024 8:24 AM EST 09/27/2024 8:25 AM EST Mariola Calixto MD POINT OF CARE TEST ORDERABLES Performing Organization Address City/[facility] Co de Phone Number [facility] [place] [place] [address] * POC, GLUCOSE (09/27/2024 3:40 AM EST) Glucometer, POC 148 65 - 199 mg/dL 09/27/2024 3:40 AM EST [facility] Comment:Supplemental ranges: <140 mg/dL before meals <180 mg/dL all other times of the day. Blood CAPILLARY BLOOD / Unknown 09/27/2024 3:40 AM EST 09/27/2024 3:40 AM EST Mariola Calixto MD POINT OF CARE TEST ORDERABLES [facility] [place] [address] * Magnesium (09/27/2024 1:38 AM EST) Pathologist [facility] Magnesium 0.91 0.69 - 1.07 mMol/L 09/27/2024 2:19 AM [facility] Blood VENOUS BLOOD SPECIMEN / Unknown Venipuncture / Unknown 09/27/2024 1:38 AM EST 09/27/2024 1:50 AM EST Librado Patel MD CHEMISTRY ORDERABLES Performing Organization Address City/[facility]/ZIP Co de Phone Number [facility] [place] [place] [address] * (ABNORMAL) Basic Metabolic Panel (09/27/2024 1:38 AM EST) [facility] Glucose 148 65 - 199 mg/dL 09/27/2024 2:19 AM [facility] Comment:Glucose Concentratio n >=200 mg/dL plus symptoms is consistent with Diabetes Mellitus. Blood Urea Nitrogen 17 8 - 18 mg/dL 09/27/2024 2:19 AM [facility] Creatinine 0.51(L) 0.70 - 1.20 mg/dL 09/27/2024 2:19 AM [facility] Sodium 139 135 - 145 mMol/L 09/27/2024 2:19 AM [facility] Potassium 3.8 3.5 - 5.0 mMol/L 09/27/2024 2:19 AM [facility] Chloride 103 98 - 107 mMol/L 09/27/2024 2:19 AM [facility] Carbon Dioxide 25 22 - 31 mMol/L 09/27/2024 2:19 AM [facility] Anion Gap 11 5 - 15 mMol/L 09/27/2024 2:19 AM [facility] Calcium 8.5 8.5 - 10.5 mg/dL 09/27/2024 2:19 AM EST [facility] Est Glomerular Filtration Rate - Female 99 mL/min/1. 73 m?? 09/27/2024 2:19 AM EST [facility] Comment: This patient's estimated [...] AM EST Librado Patel MD CHEMISTRY ORDERABLES [facility] [place] [address] * (ABNORMAL) CBC (with Diff) (09/27/2024 1:38 AM EST) White Blood Cell 39.03(HHH ) 4.00 - 9.50 x10(3)/mc L 09/27/2024 2:30 AM EST [facility] Red Blood Cell 4.12 4.00 - 5.21 x10(6)/mc L 09/27/2024 2:30 AM [facility] Hemoglobin 12.5 11.7 - 15.5 g/dL 09/27/2024 2:30 AM [facility] Hematocrit 37.4 35.7 - 45.8 % 09/27/2024 2:30 AM [facility] Mean Cell Volume 90.8 82.6 - 94.4 fL 09/27/2024 2:30 AM [facility] Mean Cell Hemoglobin 30.3 27.1 - 32.0 pg 09/27/2024 2:30 AM [facility] Mean Cell Hemoglobin Concentration 33.4 31.7 - 35.0 g/dL 09/27/2024 2:30 AM [facility] Platelet 510(H) 145 - 357 x10(3)/mc L 09/27/2024 2:30 AM [facility] Mean Platelet Volume 10.4 7.6 - 12.9 fL 09/27/2024 2:30 AM [facility] RDW Standard Deviation 42.5 37.0 - 46.0 fL 09/27/2024 2:30 AM [facility] RDW coefficient of variation 13.3 11.5 - 14.1 % 09/27/2024 2:30 AM [facility] NRBC% auto 0.2 % 09/27/2024 2:30 AM [facility] NRBC Absolute 0.06(H) <0.01 x10(3)/mc L 09/27/2024 2:30 AM [facility] Neutrophil % 85.1 % 09/27/2024 2:30 AM [facility] Neutrophil Absolute (ANC) - Automated 33.22(H) 1.70 - 6.10 x10(3)/mc L 09/27/2024 2:30 AM [facility] Lymph % 4.6 % 09/27/2024 2:30 AM [facility] Lymph Absolute 1.79 0.90 - 3.20 x10(3)/mc L 09/27/2024 2:30 AM [facility] Monocyte % 4.9 % 09/27/2024 2:30 AM [facility] Monocyte Absolute 1.93(H) 0.30 - 0.90 x10(3)/mc L 09/27/2024 2:30 AM [facility] Eos % 0.3 % 09/27/2024 2:30 AM [facility] Eos Absolute 0.10 0.00 - 0.40 x10(3)/mc L 09/27/2024 2:30 AM EST [facility] Basophil % 0.4 % 09/27/2024 2:30 AM EST [facility] Baso Absolute 0.16(H) 0.00 - 0.10 x10(3)/mc L 09/27/2024 2:30 AM EST [facility] Immature Gran % 4.7 % 2:30 AM EST [facility] Immature Gran Absolute 1.83(H) 0.00 - 0.04 x10(3)/mc L 09/27/2024 2:30 AM EST [facility] Blood VENOUS BLOOD SPECIMEN / Unknown Venipuncture / Unknown 09/27/2024 1:38 AM EST 09/27/2024 1:50 AM EST Librado Patel MD HEMATOLOGY ORDERABLE S [facility] [place] [address] * Phosphorus (09/27/2024 1:38 AM EST) Phosphorus 4.0 2.5 - 4.5 mg/dL 09/27/2024 2:19 AM EST [facility] Blood VENOUS BLOOD SPECIMEN / Unknown Venipuncture / Unknown 09/27/2024 1:38 AM EST 09/27/2024 1:50 AM EST Librado Patel MD CHEMISTRY ORDERABLES [facility] [place] [address] * POC, GLUCOSE (09/26/2024 11:30 PM EST) Glucometer, POC 121 65 - 199 mg/dL 09/26/2024 11:31 PM EST [facility] Comment:Supplemental ranges: <140 mg/dL before meals <180 mg/dL all other times of the day. Blood CAPILLARY BLOOD / Unknown 09/26/2024 11:30 PM EST 09/26/2024 11:31 PM EST Mariola Calixto MD POINT OF CARE TEST ORDERABLES Performing Organization Address City/[facility]/ZIP Co de Phone Number [facility] [place] [place] [address] * POC, GLUCOSE (09/26/2024 7:27 PM EST) Glucometer, POC 159 65 - 199 mg/dL 09/26/2024 7:27 PM EST [facility] Comment:Supplemental ranges: <140 mg/dL before meals <180 mg/dL all other times of the day. Blood CAPILLARY BLOOD / Unknown 09/26/2024 7:27 PM EST 09/26/2024 7:27 PM EST Mariola Calixto MD POINT OF CARE TEST ORDERABLES Performing Organization Address City/[facility] Co de Phone Number [facility] [place] [address] * POC, GLUCOSE (09/26/2024 3:12 PM EST) Glucometer, POC 115 65 - 199 mg/dL 09/26/2024 3:12 PM EST [facility] Comment:Supplemental ranges: <140 mg/dL before meals <180 mg/dL all other times of the day. Blood CAPILLARY BLOOD / Unknown 09/26/2024 3:12 PM EST 09/26/2024 3:12 PM EST Mariola Calixto MD POINT OF CARE TEST ORDERABLES [facility] [place] [address] * Blood culture (09/26/2024 2:53 PM EST) Blood Culture No growth at 120 hours 10/01/2024 4:02 PM EST [facility] Blood VENOUS BLOOD SPECIMEN / Unknown Venipuncture / Unknown 09/26/2024 2:53 PM EST 09/26/2024 2:59 PM EST Jah Altman APRN MICROBIOLOGY - BLO OD ORDERABLES Performing Organization Address [facility] Co de Phone Number [facility] [place] [address] * Blood culture (09/26/2024 2:42 PM EST) Blood Culture No growth at 120 hours 10/01/2024 4:02 PM EST [facility] Blood VENOUS BLOOD SPECIMEN / Unknown Venipuncture / Unknown 09/26/2024 2:42 PM EST 09/26/2024 2:59 PM EST Jah Bricenoparticia RAMOS MICROBIOLOGY - BLO OD ORDERABLES Performing Organization Address [facility] de Phone Number [facility] [place] [address] * (ABNORMAL) CT Abdomen & Pelvis w Contrast (09/26/2024 1:37 PM EST) WORKSTATION ID [id number] RAD Anatomical Region Laterality Modality Abdomen, Pelvis [...] who have questions please contact the health healthcare consultant that requested your imaging first. ? Narrative [...] body habitus and arm positioning limits evaluation. Mitigation Supervisor Images: Noncontributory. CT OF THE CHEST: Pulmonary [...] wo Contrast (Generic) (09/26/2024 1:37 PM EST) Pathologist [employer] WORKSTATION ID [id number] RAD Anatomical Region Laterality Modality Head Computed [...] who have questions please contact the health healthcare consultant that requested your imaging first. ? Narrative [...] patients who have questions please contactthe health healthcare consultant that requested your imaging first. Marisela Cartwright RUBBER [employer] SPO[employer] IMG CT ORDERABLES * (ABNORMAL) CT Angiogram Chest for Pulmonary Embolus w Contrast (09/26/2024 1:37 PM EST) WORKSTATION ID [id number] RAD Anatomical Region Laterality Modality Chest Computed [...] who have questions please contact the health healthcare consultant that requested your imaging first. ? Narrative [...] body habitus and arm positioning limits evaluation. Mitigation Supervisor Images: Noncontributory. CT OF THE CHEST: Pulmonary [...] Resulting Agency Comment Unexpected Finding Marisela Cartwright [employer] IMG CT ORDERABLES * Potassium (09/26/2024 12:16 PM EST) Potassium 4.2 3.5 - 5.0 mMol/L 09/26/2024 1:00 PM EST [facility] Blood VENOUS BLOOD SPECIMEN / Unknown Central/PICC Line / Unknown 09/26/2024 12:16 PM EST 09/26/2024 12:24 PM EST Librado Patel MD CHEMISTRY ORDERABLES Performing Organization Address City/[facility]/ZIP Co de Phone Number [facility] [place] [address] * POC, GLUCOSE (09/26/2024 11:27 AM EST) Glucometer, POC 110 65 - 199 mg/dL 09/26/2024 11:28 AM EST [facility] Comment:Supplemental ranges: <140 mg/dL before meals <180 mg/dL all other times of the day. Blood CAPILLARY BLOOD / Unknown 09/26/2024 11:27 AM EST 09/26/2024 11:28 AM EST Mariola Calixto MD POINT OF CARE TEST ORDERABLES Performing Organization Address [facility] Co de Phone Number [facility] [place] [address] * POC, GLUCOSE (09/26/2024 7:52 AM EST) Glucometer, POC 161 65 - 199 mg/dL 09/26/2024 8:04 AM EST [facility] Comment:Supplemental ranges: <140 mg/dL before meals <180 mg/dL all other times of the day. Blood CAPILLARY BLOOD / Unknown 09/26/2024 7:52 AM EST 09/26/2024 8:05 AM EST Mariola Calixto MD POINT OF CARE TEST ORDERABLES [facility] [place] [address] * CK (09/26/2024 6:35 AM EST) Creatine Kinase 78 0 - 160 unit/L 09/26/2024 7:46 AM EST [facility] Blood VENOUS BLOOD SPECIMEN / Unknown Venipuncture / Unknown 09/26/2024 6:35 AM EST 09/26/2024 6:40 AM EST Jah Altman [employer] CHEMISTRY ORDERABL ES [facility] [place] [address] * Prolactin (09/26/2024 6:35 AM EST) Prolactin 23.0 4.8 - 23.3 ng/ml 09/26/2024 7:26 AM [facility] Blood VENOUS BLOOD SPECIMEN / Unknown Venipuncture / Unknown 09/26/2024 6:35 AM EST 09/26/2024 6:40 AM EST Jah Bricenopatricia [employer] CHEMISTRY ORDERABL ES Performing Organization Address City/[facility] Co de Phone Number [facility] [place] [address] * (ABNORMAL) Hepatic Function Panel (09/26/2024 6:35 AM EST) Albumin 2.7(L) 3.2 - 5.2 g/dL 09/26/2024 7:19 AM [facility] Aspartate Aminotransferase 28 <=30 unit/L 09/26/2024 7:19 AM [facility] Alanine Aminotransferase 72(H) 0 - 30 unit/L 09/26/2024 7:19 AM [facility] Alkaline Phosphatase 81 35 - 105 unit/L 09/26/2024 7:19 AM [facility] Bilirubin, Total 0.4 <=1.3 mg/dL 09/26/2024 7:19 AM [facility] Bilirubin, Direct <0.2 0.0 - 0.3 mg/dL 09/26/2024 7:19 AM [facility] Protein, Total 5.2(L) 6.1 - 8.0 g/dL 09/26/2024 7:19 AM [facility] Blood VENOUS BLOOD SPECIMEN / Unknown Venipuncture / Unknown 09/26/2024 6:35 AM EST 09/26/2024 6:40 AM EST Jah Altman [employer] CHEMISTRY ORDERABL ES [facility] [place] [address] * (ABNORMAL) Basic Metabolic Panel (09/26/2024 6:35 AM EST) Glucose 153 65 - 199 mg/dL 09/26/2024 7:19 AM [facility] Comment:Glucose Concentratio n >=200 mg/dL plus symptoms is consistent with Diabetes Mellitus. Blood Urea Nitrogen 23(H) 8 - 18 mg/dL 09/26/2024 7:19 AM [facility] Creatinine 0.53(L) 0.70 - 1.20 mg/dL 09/26/2024 7:19 AM [facility] Sodium 137 135 - 145 mMol/L 09/26/2024 7:19 AM [facility] Potassium 3.7 3.5 - 5.0 mMol/L 09/26/2024 7:19 AM [facility] Chloride 104 98 - 107 mMol/L 09/26/2024 7:19 AM [facility] Carbon Dioxide 23 22 - 31 mMol/L 09/26/2024 7:19 AM [facility] Anion Gap 10 5 - 15 mMol/L 09/26/2024 7:19 AM [facility] Calcium 8.1(L) 8.5 - 10.5 mg/dL 09/26/2024 7:19 AM [facility] Est Glomerular Filtration Rate - Female 98 mL/min/1. 73 m?? 09/26/2024 7:19 AM [facility] Comment: This patient's estimated GFR [...] AM EST Librado Patel MD CHEMISTRY ORDERABLES [facility] [place] [address] * Phosphorus (09/26/2024 6:35 AM EST) Phosphorus 3.3 2.5 - 4.5 mg/dL 09/26/2024 7:19 AM EST [facility] Blood VENOUS BLOOD SPECIMEN / Unknown Venipuncture / Unknown 09/26/2024 6:35 AM EST 09/26/2024 6:40 AM EST Librado Patel MD CHEMISTRY ORDERABLES Performing Organization Address City/[facility]/ZIP Co de Phone Number [facility] [place] [address] * POC, GLUCOSE (09/26/2024 3:23 AM EST) Glucometer, POC 91 65 - 199 mg/dL 09/26/2024 3:24 AM EST [facility] Comment:Supplemental ranges: <140 mg/dL before meals <180 mg/dL all other times of the day. Blood CAPILLARY BLOOD / Unknown 09/26/2024 3:23 AM EST 09/26/2024 3:24 AM EST Mariola Calixto MD POINT OF CARE TEST ORDERABLES Performing Organization Address City/[facility]/ZIP Co de Phone Number [facility] [address] * Lactate, Whole Blood (09/26/2024 12:31 AM EDT) [facility] Lactate, Whole Blood 1.7 0.5 - 2.2 mmol/L 09/26/2024 12:50 AM EDT [facility] Blood VENOUS BLOOD SPECIMEN / Unknown Venipuncture / Unknown 09/26/2024 12:31 AM EDT 09/26/2024 12:46 AM EDT Mariola Calixto MD CHEMISTRY ORDERABL ES [facility] [place] [address] * Magnesium (09/26/2024 12:31 AM EDT) [facility] Magnesium 0.78 0.69 - 1.07 mMol/L 09/26/2024 1:32 AM EDT [facility] Blood VENOUS BLOOD SPECIMEN / Unknown Venipuncture / Unknown 09/26/2024 12:31 AM EDT 09/26/2024 12:46 AM EDT Librado Patel MD CHEMISTRY ORDERABLES [facility] [place] [address] * (ABNORMAL) CBC (with Diff) (09/26/2024 12:31 AM EDT) [facility] White Blood Cell 30.94(HHH ) 4.00 - 9.50 x10(3)/mc L 09/26/2024 1:12 AM EDT [facility] Red Blood Cell 3.53(L) 4.00 - 5.21 x10(6)/mc L 09/26/2024 1:12 AM EDT [facility] Hemoglobin 10.7(L) 11.7 - 15.5 g/dL 09/26/2024 1:12 AM EDT [facility] Hematocrit 32.2(L) 35.7 - 45.8 % 09/26/2024 1:12 AM [facility] Mean Cell Volume 91.2 82.6 - 94.4 fL 09/26/2024 1:12 AM [facility] Mean Cell Hemoglobin 30.3 27.1 - 32.0 pg 09/26/2024 1:12 AM [facility] Mean Cell Hemoglobin Concentration 33.2 31.7 - 35.0 g/dL 09/26/2024 1:12 AM [facility] Platelet 434(H) 145 - 357 x10(3)/mc L 09/26/2024 1:12 AM [facility] Mean Platelet Volume 10.7 7.6 - 12.9 fL 09/26/2024 1:12 AM [facility] RDW Standard Deviation 42.4 37.0 - 46.0 fL 09/26/2024 1:12 AM [facility] RDW coefficient of variation 13.0 11.5 - 14.1 % 09/26/2024 1:12 AM [facility] NRBC% auto 0.2 % 09/26/2024 1:12 AM [facility] NRBC Absolute 0.05(H) <0.01 x10(3)/mc L 09/26/2024 1:12 AM [facility] Neutrophil % 75.1 % 09/26/2024 1:12 AM [facility] Neutrophil Absolute (ANC) - Automated 23.25(H) 1.70 - 6.10 x10(3)/mc L 09/26/2024 1:12 AM [facility] Lymph % 10.8 % 09/26/2024 1:12 AM [facility] Lymph Absolute 3.33(H) 0.90 - 3.20 x10(3)/mc L 09/26/2024 1:12 AM [facility] Monocyte % 6.8 % 09/26/2024 1:12 AM [facility] Monocyte Absolute 2.09(H) 0.30 - 0.90 x10(3)/mc L 09/26/2024 1:12 AM EDT [facility] Eos % 0.2 % 09/26/2024 1:12 AM EDT [facility] Eos Absolute 0.06 0.00 - 0.40 x10(3)/mc L 09/26/2024 1:12 AM EDT [facility] Basophil % 0.3 % 09/26/2024 1:12 AM EDT [facility] Baso Absolute 0.10 0.00 - 0.10 x10(3)/mc L 09/26/2024 1:12 AM EDT [facility] Immature Gran % 6.8 % 1:12 AM EDT [facility] Immature Gran Absolute 2.11(H) 0.00 - 0.04 x10(3)/mc L 09/26/2024 1:12 AM EDT [facility] Blood VENOUS BLOOD SPECIMEN / Unknown Venipuncture / Unknown 09/26/2024 12:31 AM EDT 09/26/2024 12:46 AM EDT Librado Patel MD HEMATOLOGY ORDERABLE S [facility] [address] * (ABNORMAL) Basic Metabolic Panel (09/26/2024 12:31 AM EDT) Glucose 179 65 - 199 mg/dL 09/26/2024 1:32 AM EDT [facility] Comment:Glucose Concentratio n >=200 mg/dL plus symptoms is consistent with Diabetes Mellitus. Blood Urea Nitrogen 26(H) 8 - 18 mg/dL 09/26/2024 1:32 AM EDT [facility] Creatinine 0.56(L) 0.70 - 1.20 mg/dL 09/26/2024 1:32 AM EDT [facility] Sodium 137 135 - 145 mMol/L 09/26/2024 1:32 AM EDT [facility] Potassium 3.7 3.5 - 5.0 mMol/L 09/26/2024 1:32 AM EDT [facility] Chloride 104 98 - 107 mMol/L 09/26/2024 1:32 AM EDT [facility] Carbon Dioxide 23 22 - 31 mMol/L 09/26/2024 1:32 AM EDT [facility] Anion Gap 10 5 - 15 mMol/L 09/26/2024 1:32 AM EDT [facility] Calcium 7.9(L) 8.5 - 10.5 mg/dL 09/26/2024 1:32 AM EDT [facility] Est Glomerular Filtration Rate - Female 97 mL/min/1. 73 m?? 09/26/2024 1:32 AM EDT [facility] Comment: This patient's estimated [...] AM EDT Librado Patel MD CHEMISTRY ORDERABLES [facility] [address] * Phosphorus (09/26/2024 12:31 AM EDT) Phosphorus 3.1 2.5 - 4.5 mg/dL 09/26/2024 1:32 AM EDT [facility] Blood VENOUS BLOOD SPECIMEN / Unknown Venipuncture / Unknown 09/26/2024 12:31 AM EDT 09/26/2024 12:46 AM EDT Librado Patel MD CHEMISTRY ORDERABLES [facility] [address] * POC, GLUCOSE (09/26/2024 12:06 AM EDT) Glucometer, POC 196 65 - 199 mg/dL 09/26/2024 12:07 AM EDT [facility] Comment:Supplemental ranges: <140 mg/dL before meals <180 mg/dL all other times of the day. Blood CAPILLARY BLOOD / Unknown 09/26/2024 12:06 AM EDT 09/26/2024 12:07 AM EDT Mariola Calixto MD POINT OF CARE TEST ORDERABLES Performing Organization Address City/[facility]/ZIP Co de Phone Number [facility] [place] [address] * POC, GLUCOSE (09/25/2024 7:41 PM EDT) Glucometer, POC 178 65 - 199 mg/dL 09/25/2024 7:41 PM EDT [facility] Comment:Supplemental ranges: <140 mg/dL before meals <180 mg/dL all other times of the day. Blood CAPILLARY BLOOD / Unknown 09/25/2024 7:41 PM EDT 09/25/2024 7:41 PM EDT Mariola Calixto MD POINT OF CARE TEST ORDERABLES [facility] [address] * POC, GLUCOSE (09/25/2024 4:01 PM EDT) Glucometer, POC 150 65 - 199 mg/dL 09/25/2024 4:01 PM EDT [facility] Comment:Supplemental ranges: <140 mg/dL before meals <180 mg/dL all other times of the day. Blood CAPILLARY BLOOD / Unknown 09/25/2024 4:01 PM EDT 09/25/2024 4:02 PM EDT Mariola Calixto MD POINT OF CARE TEST ORDERABLES [facility] [place] [address] * POC, GLUCOSE (09/25/2024 11:59 AM EDT) Glucometer, POC 130 65 - 199 mg/dL 09/25/2024 12:00 PM EDT [facility] Comment:Supplemental ranges: <140 mg/dL before meals <180 mg/dL all other times of the day. Blood CAPILLARY BLOOD / Unknown 09/25/2024 11:59 AM EDT 09/25/2024 12:00 PM EDT Mariola Calixto MD POINT OF CARE TEST ORDERABLES Performing Organization Address City/[facility]/ZIP Co de Phone Number [facility] [place] [address] * POC, GLUCOSE (09/25/2024 7:46 AM EDT) Glucometer, POC 158 65 - 199 mg/dL 09/25/2024 7:46 AM EDT [facility] Comment:Supplemental ranges: <140 mg/dL before meals <180 mg/dL all other times of the day. Blood CAPILLARY BLOOD / Unknown 09/25/2024 7:46 AM EDT 09/25/2024 7:47 AM EDT Mariola Calixto MD POINT OF CARE TEST ORDERABLES [facility] [place] [address] * Magnesium (09/25/2024 4:29 AM EDT) Magnesium 0.91 0.69 - 1.07 mMol/L 09/25/2024 5:09 AM EDT [facility] Blood VENOUS BLOOD SPECIMEN / Unknown Venipuncture / Unknown 09/25/2024 4:29 AM EDT 09/25/2024 4:35 AM EDT Librado Patel MD CHEMISTRY ORDERABLES [facility] [place] [address] * (ABNORMAL) Basic Metabolic Panel (09/25/2024 4:29 AM EDT) Glucose 185 65 - 199 mg/dL 09/25/2024 5:09 AM EDT [facility] Comment:Glucose Concentratio n >=200 mg/dL plus symptoms is consistent with Diabetes Mellitus. Blood Urea Nitrogen 28(H) 8 - 18 mg/dL 09/25/2024 5:09 AM EDT [facility] Creatinine 0.49(L) 0.70 - 1.20 mg/dL 09/25/2024 5:09 AM EDT [facility] Sodium 138 135 - 145 mMol/L 09/25/2024 5:09 AM EDT [facility] Potassium 4.1 3.5 - 5.0 mMol/L 09/25/2024 5:09 AM EDT [facility] Chloride 102 98 - 107 mMol/L 09/25/2024 5:09 AM EDT [facility] Carbon Dioxide 24 22 - 31 mMol/L 09/25/2024 5:09 AM EDT [facility] Anion Gap 12 5 - 15 mMol/L 09/25/2024 5:09 AM EDT [facility] Calcium 8.4(L) 8.5 - 10.5 mg/dL 09/25/2024 5:09 AM EDT [facility] Est Glomerular Filtration Rate - Female 100 mL/min/1. 73 m?? 09/25/2024 5:09 AM EDT [facility] Comment: This patient's estimated [...] AM EDT Librado Patel MD CHEMISTRY ORDERABLES [facility] [place] [id number] * (ABNORMAL) CBC (with Diff) (09/25/2024 4:29 AM EDT) White Blood Cell 27.24(H) 4.00 - 9.50 x10(3)/mc L 09/25/2024 4:41 AM EDT [facility] Red Blood Cell 3.57(L) 4.00 - 5.21 x10(6)/mc L 09/25/2024 4:41 AM EDT [facility] Hemoglobin 10.5(L) 11.7 - 15.5 g/dL 09/25/2024 4:41 AM EDT [facility] Hematocrit 31.9(L) 35.7 - 45.8 % 09/25/2024 4:41 AM EDT [facility] Mean Cell Volume 89.4 82.6 - 94.4 fL 09/25/2024 4:41 AM [facility] Mean Cell Hemoglobin 29.4 27.1 - 32.0 pg 09/25/2024 4:41 AM [facility] Mean Cell Hemoglobin Concentration 32.9 31.7 - 35.0 g/dL 09/25/2024 4:41 AM [facility] Platelet 379(H) 145 - 357 x10(3)/mc L 09/25/2024 4:41 AM [facility] Mean Platelet Volume 10.8 7.6 - 12.9 fL 09/25/2024 4:41 AM [facility] RDW Standard Deviation 40.4 37.0 - 46.0 fL 09/25/2024 4:41 AM [facility] RDW coefficient of variation 12.5 11.5 - 14.1 % 09/25/2024 4:41 AM [facility] NRBC% auto 0.1 % 09/25/2024 4:41 AM [facility] NRBC Absolute 0.03(H) <0.01 x10(3)/mc L 09/25/2024 4:41 AM [facility] Neutrophil % 85.4 % 09/25/2024 4:41 AM [facility] Neutrophil Absolute (ANC) - Automated 23.24(H) 1.70 - 6.10 x10(3)/mc L 09/25/2024 4:41 AM [facility] Lymph % 3.7 % 09/25/2024 4:41 AM [facility] Lymph Absolute 1.02 0.90 - 3.20 x10(3)/mc L 09/25/2024 4:41 AM [facility] Monocyte % 5.4 % 09/25/2024 4:41 AM [facility] Monocyte Absolute 1.48(H) 0.30 - 0.90 x10(3)/mc L 09/25/2024 4:41 AM [facility] Eos % 0.0 % 09/25/2024 4:41 AM EDT [facility] Eos Absolute <0.04 0.00 - 0.40 x10(3)/mc L 09/25/2024 4:41 AM EDT [facility] Basophil % 0.3 % 09/25/2024 4:41 AM EDT [facility] Baso Absolute 0.08 0.00 - 0.10 x10(3)/mc L 09/25/2024 4:41 AM EDT [facility] Immature Gran % 5.2 % 4:41 AM EDT [facility] Immature Gran Absolute 1.41(H) 0.00 - 0.04 x10(3)/mc L 09/25/2024 4:41 AM EDT [facility] Blood VENOUS BLOOD SPECIMEN / Unknown Venipuncture / Unknown 09/25/2024 4:29 AM EDT 09/25/2024 4:35 AM EDT Librado Patel MD HEMATOLOGY ORDERABLE S [facility] [address] * Phosphorus (09/25/2024 4:29 AM EDT) Phosphorus 3.4 2.5 - 4.5 mg/dL 09/25/2024 5:09 AM EDT [facility] Blood VENOUS BLOOD SPECIMEN / Unknown Venipuncture / Unknown 09/25/2024 4:29 AM EDT 09/25/2024 4:35 AM EDT Librado Patel MD CHEMISTRY ORDERABLES [facility] [place] [address] * POC, GLUCOSE (09/25/2024 3:46 AM EDT) Glucometer, POC 159 65 - 199 mg/dL 09/25/2024 3:47 AM EDT [facility] Comment:Supplemental ranges: <140 mg/dL before meals <180 mg/dL all other times of the day. Blood CAPILLARY BLOOD / Unknown 09/25/2024 3:46 AM EDT 09/25/2024 3:47 AM EDT Mariola Calixto MD POINT OF CARE TEST ORDERABLES [facility] [place] [address] * POC, GLUCOSE (09/24/2024 11:50 PM EDT) Glucometer, POC 145 65 - 199 mg/dL 09/24/2024 11:50 PM EDT [facility] Comment:Supplemental ranges: <140 mg/dL before meals <180 mg/dL all other times of the day. Blood CAPILLARY BLOOD / Unknown 09/24/2024 11:50 PM EDT 09/24/2024 11:50 PM EDT Mariola Calixto MD POINT OF CARE TEST ORDERABLES Performing Organization Address City/[facility]/ZIP Co de Phone Number [facility] [place] [address] * POC, GLUCOSE (09/24/2024 7:50 PM EDT) Glucometer, POC 166 65 - 199 mg/dL 09/24/2024 7:50 PM EDT [facility] Comment:Supplemental ranges: <140 mg/dL before meals <180 mg/dL all other times of the day. Blood CAPILLARY BLOOD / Unknown 09/24/2024 7:50 PM EDT 09/24/2024 7:50 PM EDT Mariola Calixto MD POINT OF CARE TEST ORDERABLES [facility] [place] [address] * (ABNORMAL) POC, GLUCOSE (09/24/2024 3:18 PM EDT) Glucometer, POC 202(H) 65 - 199 mg/dL 09/24/2024 3:18 PM EDT [facility] Comment:Supplemental ranges: <140 mg/dL before meals <180 mg/dL all other times of the day. Blood CAPILLARY BLOOD / Unknown 09/24/2024 3:18 PM EDT 09/24/2024 3:18 PM EDT Mariola Calixto MD POINT OF CARE TEST ORDERABLES Performing Organization Address City/[facility]/ZIP Co de Phone Number [facility] [place] [address] * POC, GLUCOSE (09/24/2024 11:16 AM EDT) Glucometer, POC 182 65 - 199 mg/dL 09/24/2024 11:17 AM EDT [facility] Comment:Supplemental ranges: <140 mg/dL before meals <180 mg/dL all other times of the day. Blood CAPILLARY BLOOD / Unknown 09/24/2024 11:16 AM EDT 09/24/2024 11:17 AM EDT Mariola Calixto MD POINT OF CARE TEST ORDERABLES [facility] [place] [address] * POC, GLUCOSE (09/24/2024 7:39 AM EDT) Glucometer, POC 170 65 - 199 mg/dL 09/24/2024 7:39 AM EDT [facility] Comment:Supplemental ranges: <140 mg/dL before meals <180 mg/dL all other times of the day. Blood CAPILLARY BLOOD / Unknown 09/24/2024 7:39 AM EDT 09/24/2024 7:40 AM EDT Mariola Calixto MD POINT OF CARE TEST ORDERABLES [facility] [place] [address] * (ABNORMAL) Scan, Peripheral Blood (09/24/2024 5:00 AM EDT) RBC Morphology Abnormal 09/24/2024 5:47 AM EDT [facility] Platelet Estimate Normal Normal 024 5:47 AM EDT [facility] Polychromasia Present 09/24/2024 5:47 AM EDT [facility] Platelet Clumps Present(A) (none) 5:47 AM EDT [facility] WBC MORPHOLOGY See Comment(A) (none) 09/24/2024 5:47 AM EDT [facility] Comment:Hypersegmentation Blood VENOUS BLOOD SPECIMEN / Unknown 09/24/2024 5:00 AM EDT 09/24/2024 5:13 AM EDT Jah Altman APRN HEMATOLOGY ORDERAB LES Performing Organization Address City/[facility]/ZIP Co de Phone Number [facility] [place] [address] * Magnesium (09/24/2024 5:00 AM EDT) Magnesium 0.89 0.69 - 1.07 mMol/L 09/24/2024 5:50 AM EDT [facility] Blood VENOUS BLOOD SPECIMEN / Unknown 09/24/2024 5:00 AM EDT 09/24/2024 5:13 AM EDT Librado Patel MD CHEMISTRY ORDERABLES [facility] [place] [address] * (ABNORMAL) Basic Metabolic Panel (09/24/2024 5:00 AM EDT) Glucose 202(H) 65 - 199 mg/dL 09/24/2024 5:50 AM [facility] Comment:Glucose Concentratio n >=200 mg/dL plus symptoms is consistent with Diabetes Mellitus. Blood Urea Nitrogen 28(H) 8 - 18 mg/dL 09/24/2024 5:50 AM [facility] Creatinine 0.51(L) 0.70 - 1.20 mg/dL 09/24/2024 5:50 AM [facility] Sodium 138 135 - 145 mMol/L 09/24/2024 5:50 AM [facility] Potassium 4.2 3.5 - 5.0 mMol/L 09/24/2024 5:50 AM [facility] Chloride 102 98 - 107 mMol/L 09/24/2024 5:50 AM [facility] Carbon Dioxide 26 22 - 31 mMol/L 09/24/2024 5:50 AM [facility] Anion Gap 10 5 - 15 mMol/L 09/24/2024 5:50 AM [facility] Calcium 8.5 8.5 - 10.5 mg/dL 09/24/2024 5:50 AM [facility] Est Glomerular Filtration Rate - Female 99 mL/min/1. 73 m?? 09/24/2024 5:50 AM [facility] Comment: This patient's estimated GFR [...] AM EDT Librado Patel MD CHEMISTRY ORDERABLES [facility] [place] [address] * (ABNORMAL) CBC (with Diff) (09/24/2024 5:00 AM EDT) White Blood Cell 19.25(H) 4.00 - 9.50 x10(3)/mc L 09/24/2024 5:47 AM EDT [facility] Red Blood Cell 3.34(L) 4.00 - 5.21 x10(6)/mc L 09/24/2024 5:47 AM EDT [facility] Hemoglobin 9.7(L) 11.7 - 15.5 g/dL 09/24/2024 5:47 AM EDT [facility] Hematocrit 30.6(L) 35.7 - 45.8 % 09/24/2024 5:47 AM EDT [facility] Mean Cell Volume 91.6 82.6 - 94.4 fL 09/24/2024 5:47 AM EDT [facility] Mean Cell Hemoglobin 29.0 27.1 - 32.0 pg 09/24/2024 5:47 AM EDT [facility] Mean Cell Hemoglobin Concentration 31.7 31.7 - 35.0 g/dL 09/24/2024 5:47 AM EDT [facility] Platelet 342 145 - 357 x10(3)/mc L 09/24/2024 5:47 AM EDT [facility] Mean Platelet Volume 11.0 7.6 - 12.9 fL 09/24/2024 5:47 AM EDT [facility] RDW Standard Deviation 41.1 37.0 - 46.0 fL 09/24[facility]2024 [facility] coefficient of variation 12.5 11.5 - 14.1 % 09/24/2024 5:47 AM [facility] NRBC% auto 0.1 % 09/24/2024 5:47 AM [facility] NRBC Absolute 0.02(H) <0.01 x10(3)/mc L 09/24/2024 5:47 AM [facility] Neutrophil % 84.6 % 09/24/2024 5:47 AM [facility] Comment:This is an appended report. These results have been appended to a previously preliminary verified report. Neutrophil Absolute (ANC) - Automated 16.30(H) 1.70 - 6.10 x10(3)/mc L 09/24/2024 5:47 AM [facility] Comment:This is an appended report. These results have been appended to a previously preliminary verified report. Lymph % 3.0 % 09/24/2024 5:47 AM [facility] Comment:This is an appended report. These results have been appended to a previously preliminary verified report. Lymph Absolute 0.57(L) 0.90 - 3.20 x10(3)/mc L 09/24/2024 5:47 AM [facility] Comment:This is an appended report. These results have been appended to a previously preliminary verified report. Monocyte % 7.0 % 09/24/2024 5:47 AM [facility] Comment:This is an appended report. These results have been appended to a previously preliminary verified report. Monocyte Absolute 1.35(H) 0.30 - 0.90 x10(3)/mc L 09/24/2024 5:47 AM [facility] Comment:This is an appended report. These results have been appended to a previously preliminary verified report. Eos % 0.0 % 09/24/2024 5:47 AM [facility] Comment:This is an appended report. These results have been appended to a previously preliminary verified report. Eos Absolute <0.04 0.00 - 0.40 x10(3)/mc L 09/24/2024 5:47 AM EDT [facility] Comment:This is an appended report. These results have been appended to a previously preliminary verified report. Basophil % 0.2 % 09/24/2024 5:47 AM EDT [facility] Comment:This is an appended report. These results have been appended to a previously preliminary verified report. Baso Absolute <0.04 0.00 - 0.10 x10(3)/mc L 09/24/2024 5:47 AM EDT [facility] Comment:This is an appended report. These results have been appended to a previously preliminary verified report. Immature Gran % 5.2 % 5:47 AM EDT [facility] Comment:This is an appended report. These results have been appended to a previously preliminary verified report. Immature Gran Absolute 1.00(H) 0.00 - 0.04 x10(3)/mc L 09/24/2024 5:47 AM EDT [facility] Comment:This is an appended report. These results have been appended to a previously preliminary verified report. Blood VENOUS BLOOD SPECIMEN / Unknown 09/24/2024 5:00 AM EDT 09/24/2024 5:13 AM EDT Librado Patel MD HEMATOLOGY ORDERABLE S [facility] [address] * Phosphorus (09/24/2024 5:00 AM EDT) Phosphorus 3.7 2.5 - 4.5 mg/dL 09/24/2024 5:50 AM EDT [facility] Blood VENOUS BLOOD SPECIMEN / Unknown 09/24/2024 5:00 AM EDT 09/24/2024 5:13 AM EDT Librado Patel MD CHEMISTRY ORDERABLES [facility] [address] * (ABNORMAL) POC, GLUCOSE (09/24/2024 4:05 AM EDT) Glucometer, POC 210(H) 65 - 199 mg/dL 09/24/2024 4:05 AM EDT [facility] Comment:Supplemental ranges: <140 mg/dL before meals <180 mg/dL all other times of the day. Blood CAPILLARY BLOOD / Unknown 09/24/2024 4:05 AM EDT 09/24/2024 4:05 AM EDT Mariola Calixto MD POINT OF CARE TEST ORDERABLES Performing Organization Address City/[facility]/ZIP Co de Phone Number [facility] [place] [address] * POC, GLUCOSE (09/23/2024 11:57 PM EDT) Glucometer, POC 179 65 - 199 mg/dL 09/23/2024 11:57 PM EDT [facility] Comment:Supplemental ranges: <140 mg/dL before meals <180 mg/dL all other times of the day. Blood CAPILLARY BLOOD / Unknown 09/23/2024 11:57 PM EDT 09/23/2024 11:58 PM EDT Mariola Calixto MD POINT OF CARE TEST ORDERABLES [facility] [place] [address] * POC, GLUCOSE (09/23/2024 7:59 PM EDT) Glucometer, POC 179 65 - 199 mg/dL 09/23/2024 8:00 PM EDT [facility] Comment:Supplemental ranges: <140 mg/dL before meals <180 mg/dL all other times of the day. Blood CAPILLARY BLOOD / Unknown 09/23/2024 7:59 PM EDT 09/23/2024 8:00 PM EDT Mariola Calixto MD POINT OF CARE TEST ORDERABLES [facility] [place] [address] * Potassium (09/23/2024 4:23 PM EDT) Potassium 4.3 3.5 - 5.0 mMol/L 09/23/2024 5:09 PM EDT [facility] Blood VENOUS BLOOD SPECIMEN / Unknown Venipuncture / Unknown 09/23/2024 4:23 PM EDT 09/23/2024 4:39 PM EDT Librado Patel MD CHEMISTRY ORDERABLES Performing Organization Address City/[facility]/ZIP Co de Phone Number [facility] [place] [address] * POC, GLUCOSE (09/23/2024 3:53 PM EDT) Glucometer, POC 167 65 - 199 mg/dL 09/23/2024 3:53 PM EDT [facility] Comment:Supplemental ranges: <140 mg/dL before meals <180 mg/dL all other times of the day. Blood CAPILLARY BLOOD / Unknown 09/23/2024 3:53 PM EDT 09/23/2024 3:53 PM EDT Mariola Calixto MD POINT OF CARE TEST ORDERABLES [facility] [place] [address] * POC, GLUCOSE (09/23/2024 11:30 AM EDT) Glucometer, POC 162 65 - 199 mg/dL 09/23/2024 11:30 AM EDT [facility] Comment:Supplemental ranges: <140 mg/dL before meals <180 mg/dL all other times of the day. Blood CAPILLARY BLOOD / Unknown 09/23/2024 11:30 AM EDT 09/23/2024 11:30 AM EDT Mariola Calixto MD POINT OF CARE TEST ORDERABLES Performing Organization Address City/[facility]/ZIP Co de Phone Number [facility] [place] [address] * (ABNORMAL) Urinalysis Microscopic (09/23/2024 10:29 AM EDT) Budding Yeast, Urine Many(A) None /HPF 09/23/2024 11:18 AM EDT [facility] Hyphae Yeast, Urine Many(A) None /HPF 09/23/2024 11:18 AM EDT [facility] RBC, Urine 9(H) 0 - 4 /HPF 09/23/2024 11:18 AM EDT [facility] WBC, Urine 14(H) 0 - 5 /HPF 09/23/2024 11:18 AM EDT [facility] Squamous Epithelial Cells, Urine 2 0 - 5 /HPF 09/23/2024 11:18 AM EDT [facility] Hyaline Casts, Urine 1 0 - 2 /LPF 09/23/2024 11:18 AM EDT [facility] Comment 09/23/2024 11:18 AM EDT [facility] Comment:Interpret results wi th caution, microscopic results are from a suboptimal specimen. Bacteria, Urine Few(A) None /HPF 11:18 AM EDT [facility] Urine URINE SPECIMEN OBTAINED BY CLEAN CATCH PROCEDURE / Unknown Non Blood Collection / Unknown 09/23/2024 10:29 AM EDT 09/23/2024 10:38 AM EDT Mariola Calixto MD URINE ORDERABLES Performing Organization Address [facility]/ZIP Co de Phone Number [facility] [place] [address] * Urinalysis Microscopic Exam (09/23/2024 10:29 AM EDT) Urine Non Blood Collection / Unknown 09/23/2024 10:29 AM EDT 09/23/2024 10:38 AM EDT Mariola Calixto MD URINE ORDERABLES [facility] [place] [address] * (ABNORMAL) Urinalysis Dipstick (09/23/2024 10:29 AM EDT) Glucose, Urine Dipstick Negative Negative 09/23/2024 11:18 AM EDT [facility] Protein, Urine Dipstick Negative Negative 09/23/2024 11:[facility] Bilirubin, Urine Dipstick Negative Negative 09/23/2024 11:18 AM [facility] Comment:Clinical correlation required for positive Urine Bilirubin results as false positive may occur with some drugs and drug related products. If a false positive is suspected a serum total bilirubin should be considered if clinically indicated. Urobilinogen, Urine Dipstick Normal Normal, 0.2 mg/dL, 1.0 mg/dL 09/23/2024 11:18 AM [facility] pH, Urine (dipstick) 6.5 5.0 - 8.0 09/23/2024 11:18 AM [facility] Blood, Urine Dipstick Moderate(A) Negative 09/23/2024 11:18 AM [facility] Ketone, Urine Dipstick Negative Negative 09/23/2024 11:18 AM [facility] Nitrite, Urine Dipstick Negative Negative 09/23/2024 11:[facility] Leukocytes, Urine Dipstick Small(A) Negative 09/23/2024 11:18 AM [facility] Specific [place] Urine Automated 1.019 1.005 - 1.030 09/23/2024 11:18 [facility] Appearance, Urine Dipstick Cloudy(A) Clear 09/23/2024 11:18 AM EDT [facility] Color, Urine Dipstick Yellow Yellow, Dark Yellow 09/23/2024 11:18 AM EDT [facility] CULTURE ADDED? 09/23/2024 11:18 AM EDT [facility] Urine Non Blood Collection / Unknown 09/23/2024 10:29 AM EDT 09/23/2024 10:38 AM EDT Mariola Calixto MD URINE ORDERABLES Performing Organization Address City/[facility]/ZIP Co de Phone Number [facility] [address] * (ABNORMAL) Respiratory Culture, Quantitative (09/23/2024 10:26 AM EDT) Quantitative Bacterial Culture >100,000 CFU/mL Streptococcus anginosus group(A) VITEK 2 METHOD 09/25/2024 8:52 AM EDT [facility] Quantitative Bacterial Culture 50 CFU/mL mixed bacterial morphotypes suggestive of normal upper respiratory franco VITEK 2 METHOD 09/25/2024 8:52 AM EDT [facility] Gram Stain Cytocentrifuge Gram Stain performed(A) 09/25/2024 8:52 AM EDT [facility] Gram Stain neutrophils(A) 09/25/2024 8:52 AM EDT [facility] Gram Stain Moderate Gram negative rods(A) 09/25/2024 8:52 AM EDT [facility] Gram Stain Many Mixed bacterial morphotypes suggestive of normal upper respiratory franco(A) 09/25/2024 8:52 AM EDT [facility] Bronchial Alveolar Lavage STRUCTURE OF LOWER LOBE OF LEFT LUNG / Unknown 09/23/2024 10:26 AM EDT 09/23/2024 11:30 AM EDT Mariola Calixto MD MICROBIOLOGY - GEN ERAL ORDERABLES Performing Organization Address City/[facility]/ZIP Co de Phone Number [facility] [place] [address] * (ABNORMAL) Hepatic Function Panel (09/23/2024 7:56 AM EDT) Albumin 3.0(L) 3.2 - 5.2 g/dL 09/23/2024 10:04 AM EDT [facility] Aspartate Aminotransferase 18 <=30 unit/L 09/23/2024 10:04 AM EDT [facility] Alanine Aminotransferase 56(H) 0 - 30 unit/L 09/23/2024 10:04 AM EDT [facility] Alkaline Phosphatase 80 35 - 105 unit/L 09/23/2024 10:04 AM EDT [facility] Bilirubin, Total 0.3 <=1.3 mg/dL 09/23/2024 10:04 AM EDT [facility] Bilirubin, Direct <0.2 0.0 - 0.3 mg/dL 09/23/2024 10:04 AM EDT [facility] Protein, Total 5.8(L) 6.1 - 8.0 g/dL 09/23/2024 10:04 AM EDT [facility] Blood VENOUS BLOOD SPECIMEN / Unknown IP Care Team Draw / Unknown 09/23/2024 7:56 AM EDT 09/23/2024 8:23 AM EDT Mariola Calixto MD CHEMISTRY ORDERABL ES [facility] [address] * Potassium (09/23/2024 7:56 AM EDT) Potassium 3.9 3.5 - 5.0 mMol/L 09/23/2024 9:26 AM EDT [facility] Blood VENOUS BLOOD SPECIMEN / Unknown IP Care Team Draw / Unknown 09/23/2024 7:56 AM EDT 09/23/2024 8:23 AM EDT Librado Patel MD CHEMISTRY ORDERABLES Performing Organization Address [facility] Co de Phone Number [facility] [address] * POC, GLUCOSE (09/23/2024 7:41 AM EDT) Glucometer, POC 169 65 - 199 mg/dL 09/23/2024 7:42 AM EDT [facility] Comment:Supplemental ranges: <140 mg/dL before meals <180 mg/dL all other times of the day. Blood CAPILLARY BLOOD / Unknown 09/23/2024 7:41 AM EDT 09/23/2024 7:42 AM EDT Mariola Calixto MD POINT OF CARE TEST ORDERABLES Performing Organization Address [facility] Co de Phone Number [facility] [place] [address] * POC, GLUCOSE (09/23/2024 7:15 AM EDT) Glucometer, POC 167 65 - 199 mg/dL 09/23/2024 7:15 AM EDT [facility] Comment:Supplemental ranges: <140 mg/dL before meals <180 mg/dL all other times of the day. Blood CAPILLARY BLOOD / Unknown 09/23/2024 7:15 AM EDT 09/23/2024 7:15 AM EDT Mariola Calixto MD POINT OF CARE TEST ORDERABLES Performing Organization Address [facility]/ZIP Co de Phone Number [facility] [place] [address] * (ABNORMAL) POC, GLUCOSE (09/23/2024 4:11 AM EDT) Glucometer, POC 209(H) 65 - 199 mg/dL 09/23/2024 4:11 AM EDT [facility] Comment:Supplemental ranges: <140 mg/dL before meals <180 mg/dL all other times of the day. Blood CAPILLARY BLOOD / Unknown 09/23/2024 4:11 AM EDT 09/23/2024 4:11 AM EDT Mariola Calixto MD POINT OF CARE TEST ORDERABLES [facility] [place] [address] * Phosphorus (09/23/2024 1:01 AM EDT) Phosphorus 3.2 2.5 - 4.5 mg/dL 09/23/2024 1:43 AM EDT [facility] Blood VENOUS BLOOD SPECIMEN / Unknown IP Care Team Draw / Unknown 09/23/2024 1:01 AM EDT 09/23/2024 1:15 AM EDT Librado Patel MD CHEMISTRY ORDERABLES Performing Organization Address City/[facility]/ZIP Co de Phone Number [facility] [place] [address] * Magnesium (09/23/2024 1:01 AM EDT) Magnesium 0.85 0.69 - 1.07 mMol/L 09/23/2024 1:43 AM EDT [facility] Blood VENOUS BLOOD SPECIMEN / Unknown IP Care Team Draw / Unknown 09/23/2024 1:01 AM EDT 09/23/2024 1:15 AM EDT Librado Patel MD CHEMISTRY ORDERABLES Performing Organization Address City/[facility]/ZIP Co de Phone Number [facility] [place] [address] * (ABNORMAL) Basic Metabolic Panel (09/23/2024 1:01 AM EDT) Glucose 211(H) 65 - 199 mg/dL 09/23/2024 1:43 AM EDT [facility] Comment:Glucose Concentratio n >=200 mg/dL plus symptoms is consistent with Diabetes Mellitus. Blood Urea Nitrogen 26(H) 8 - 18 mg/dL 09/23/2024 1:43 AM [facility] Creatinine 0.47(L) 0.70 - 1.20 mg/dL 09/23/2024 1:43 AM [facility] Sodium 138 135 - 145 mMol/L 09/23/2024 1:43 AM [facility] Potassium 3.9 3.5 - 5.0 mMol/L 09/23/2024 1:43 AM [facility] Chloride 103 98 - 107 mMol/L 09/23/2024 1:43 AM [facility] Carbon Dioxide 25 22 - 31 mMol/L 09/23/2024 1:43 AM [facility] Anion Gap 10 5 - 15 mMol/L 09/23/2024 1:43 AM [facility] Calcium 8.7 8.5 - 10.5 mg/dL 09/23/2024 1:43 AM [facility] Est Glomerular Filtration Rate - Female 101 mL/min/1. 73 m?? 09/23/2024 1:43 AM [facility] Comment: This patient's estimated GFR [...] AM EDT Librado Patel MD CHEMISTRY ORDERABLES [facility] [place] [address] * (ABNORMAL) CBC (with Diff) (09/23/2024 1:01 AM EDT) White Blood Cell 19.97(H) 4.00 - 9.50 x10(3)/mc L 09/23/2024 1:19 AM [facility] Red Blood Cell 3.37(L) 4.00 - 5.21 x10(6)/mc L 09/23/2024 1:19 AM [facility] Hemoglobin 10.0(L) 11.7 - 15.5 g/dL 09/23/2024 1:19 AM [facility] Hematocrit 30.1(L) 35.7 - 45.8 % 09/23/2024 1:19 AM [facility] Mean Cell Volume 89.3 82.6 - 94.4 fL 09/23/2024 1:19 AM [facility] Mean Cell Hemoglobin 29.7 27.1 - 32.0 pg 09/23/2024 1:19 AM [facility] Mean Cell Hemoglobin Concentration 33.2 31.7 - 35.0 g/dL 09/23/2024 1:19 AM [facility] Platelet 293 145 - 357 x10(3)/mc L 09/23/2024 1:19 AM [facility] Mean Platelet Volume 10.9 7.6 - 12.9 fL 09/23/2024 1:19 AM [facility] RDW Standard Deviation 39.9 37.0 - 46.0 fL 09/23/2024 1:19 AM [facility] RDW coefficient of variation 12.4 11.5 - 14.1 % 09/23/2024 1:19 AM [facility] NRBC% auto 0.1 % 09/23/2024 1:19 AM [facility] NRBC Absolute 0.02(H) <0.01 x10(3)/mc L 09/23/2024 1:19 AM EDT [facility] Neutrophil % 84.1 % 09/[facility]24 [facility] Neutrophil Absolute (ANC) - Automated 16.80(H) 1.70 - 6.10 x10(3)/mc L 09/23/2024 1:19 AM EDT [facility] Lymph % 3.4 % 09/23/2024 1:19 AM EDT [facility] Lymph Absolute 0.67(L) 0.90 - 3.20 x10(3)/mc L 09/23/2024 1:19 AM EDT [facility] Monocyte % 8.6 % 09/23/2024 1:19 AM [facility] Monocyte Absolute 1.72(H) 0.30 - 0.90 x10(3)/mc L 09/23/2024 1:19 AM T [facility] Eos % 0.0 % 09/23/2024 1:19 AM [facility] Eos Absolute <0.04 0.00 - 0.40 x10(3)/mc L 09/23/2024 1:19 AM EDT [facility] Basophil % 0.2 % 09/23/2024 1:19 AM [facility] Baso Absolute 0.04 0.00 - 0.10 x10(3)/mc L 09/23/2024 1:19 AM EDT [facility] Immature Gran % 3.7 % 1:19 AM [facility] Immature Gran Absolute 0.74(H) 0.00 - 0.04 x10(3)/mc L 09/23/2024 1:19 AM [facility] Blood VENOUS BLOOD SPECIMEN / Unknown IP Care Team Draw / Unknown 09/23/2024 1:01 AM EDT 09/23/2024 1:15 AM EDT Librado Patel MD HEMATOLOGY ORDERABLE S [facility] [place] [address] * (ABNORMAL) POC, GLUCOSE (09/23/2024 12:47 AM EDT) Glucometer, POC 200(H) 65 - 199 mg/dL 09/23/2024 12:47 AM EDT [facility] Comment:Supplemental ranges: <140 mg/dL before meals <180 mg/dL all other times of the day. Blood CAPILLARY BLOOD / Unknown 09/23/2024 12:47 AM EDT 09/23/2024 12:47 AM EDT Mariola Calixto MD POINT OF CARE TEST ORDERABLES Performing Organization Address [facility]/ZIP Co de Phone Number [facility] [place] [place] [address] * POC, GLUCOSE (09/22/2024 11:40 PM EDT) Glucometer, POC 181 65 - 199 mg/dL 09/22/2024 11:40 PM EDT [facility] Comment:Supplemental ranges: <140 mg/dL before meals <180 mg/dL all other times of the day. Blood CAPILLARY BLOOD / Unknown 09/22/2024 11:40 PM EDT 09/22/2024 11:40 PM EDT Mariola Calixto MD POINT OF CARE TEST ORDERABLES [facility] [place] [address] * POC, GLUCOSE (09/22/2024 9:02 PM EDT) Glucometer, POC 159 65 - 199 mg/dL 09/22/2024 9:02 PM EDT [facility] Comment:Supplemental ranges: <140 mg/dL before meals <180 mg/dL all other times of the day. Blood CAPILLARY BLOOD / Unknown 09/22/2024 9:02 PM EDT 09/22/2024 9:02 PM EDT Mariola Calixto MD POINT OF CARE TEST ORDERABLES Performing Organization Address City/[facility] Co de Phone Number [facility] [place] [address] * POC, GLUCOSE (09/22/2024 7:38 PM EDT) Glucometer, POC 162 65 - 199 mg/dL 09/22/2024 7:38 PM EDT [facility] Comment:Supplemental ranges: <140 mg/dL before meals <180 mg/dL all other times of the day. Blood CAPILLARY BLOOD / Unknown 09/22/2024 7:38 PM EDT 09/22/2024 7:38 PM EDT Mariola Calixto MD POINT OF CARE TEST ORDERABLES Performing Organization Address [facility] Co de Phone Number [facility] [place] [place] [address] * POC, GLUCOSE (09/22/2024 3:52 PM EDT) Glucometer, POC 189 65 - 199 mg/dL 09/22/2024 3:52 PM EDT [facility] Comment:Supplemental ranges: <140 mg/dL before meals <180 mg/dL all other times of the day. Blood CAPILLARY BLOOD / Unknown 09/22/2024 3:52 PM EDT 09/22/2024 3:52 PM EDT Mariola Calixto MD POINT OF CARE TEST ORDERABLES Performing Organization Address City/[facility] Co de Phone Number [facility] [place] [address] * POC, GLUCOSE (09/22/2024 11:56 AM EDT) Glucometer, POC 181 65 - 199 mg/dL 09/22/2024 11:56 AM EDT [facility] Comment:Supplemental ranges: <140 mg/dL before meals <180 mg/dL all other times of the day. Blood CAPILLARY BLOOD / Unknown 09/22/2024 11:56 AM EDT 09/22/2024 11:57 AM EDT Mariola Calixto MD POINT OF CARE TEST ORDERABLES Performing Organization Address City/[facility]/ZIP Co de Phone Number [facility] [place] [address] * MRSA PCR Screen (09/22/2024 11:43 AM EDT) Pathologist [facility] MRSA PCR Not Detected 09/22/2024 2:13 PM EDT [facility] Swab SPECIMEN FROM NASOPHARYNGEAL STRUCTURE / Unknown Non Blood Collection / Unknown 09/22/2024 11:43 AM EDT 09/22/2024 11:52 AM EDT Narrative [facility] - 09/22/2024 2:13 PM EDT This test was performed using the Xpert MRSA NxG test kit and is run on the [email or web address] GeneXpert Dx System. This test is cleared by the U.S. Food and Drug Administration for clinical use and its performance characteristics have been verified by the [facility] at [facility]. This test was performed using the Xpert MRSA NxG test kit and is run on the [email or web address] GeneXpert Dx System. This test is cleared by the U.S. Food and Drug Administration for clinical use and its performance characteristics have been verified by the [facility] at [facility]. Mariola Calixto MD MOLECULAR ORDERABL ES Performing Organization Address City/[facility]/ZIP Co de Phone Number [facility] [place] [address] * POC, GLUCOSE (09/22/2024 7:52 AM EDT) Glucometer, POC 178 65 - 199 mg/dL 09/22/2024 7:52 AM EDT [facility] Comment:Supplemental ranges: <140 mg/dL before meals <180 mg/dL all other times of the day. Blood CAPILLARY BLOOD / Unknown 09/22/2024 7:52 AM EDT 09/22/2024 7:52 AM EDT Mariola Calixto MD POINT OF CARE TEST ORDERABLES Performing Organization Address [facility] Co de Phone Number [facility] [place] [address] * (ABNORMAL) POC, GLUCOSE (09/22/2024 4:53 AM EDT) Glucometer, POC 204(H) 65 - 199 mg/dL 09/22/2024 4:54 AM EDT [facility] Comment:Supplemental ranges: <140 mg/dL before meals <180 mg/dL all other times of the day. Blood CAPILLARY BLOOD / Unknown 09/22/2024 4:53 AM EDT 09/22/2024 4:54 AM EDT Mariola Calixto MD POINT OF CARE TEST ORDERABLES Performing Organization Address [facility] Co de Phone Number [facility] [place] [place] [address] * CT Head wo Contrast (Generic) (09/22/2024 4:02 AM EDT) WORKSTATION ID [id number] [facility] Anatomical Region Laterality Modality Head [...] who have questions please contact the health healthcare consultant that requested your imaging first. ? Narrative [...] patients who have questions please contactthe health healthcare consultant that requested your imaging first. Mariola Calixto MD IMG CT ORDERABLES * Phosphorus (09/22/2024 1:26 AM EDT) Pathologist [facility] Phosphorus 3.7 2.5 - 4.5 mg/dL 09/22/2024 1:59 AM EDT [facility] Blood VENOUS BLOOD SPECIMEN / Unknown IP Care Team Draw / Unknown 09/22/2024 1:26 AM EDT 09/22/2024 1:31 AM EDT Librado Patel MD CHEMISTRY ORDERABLES [facility] [place] [address] * Magnesium (09/22/2024 1:26 AM EDT) Pathologist [facility] Magnesium 0.87 0.69 - 1.07 mMol/L 09/22/2024 1:59 AM EDT [facility] Blood VENOUS BLOOD SPECIMEN / Unknown IP Care Team Draw / Unknown 09/22/2024 1:26 AM EDT 09/22/2024 1:31 AM EDT Librado Patel MD CHEMISTRY ORDERABLES [facility] [place] [address] * (ABNORMAL) Basic Metabolic Panel (09/22/2024 1:26 AM EDT) Glucose 228(H) 65 - 199 mg/dL 09/22/2024 1:59 AM EDT [facility] Comment:Glucose Concentratio n >=200 mg/dL plus symptoms is consistent with Diabetes Mellitus. Blood Urea Nitrogen 26(H) 8 - 18 mg/dL 09/22/2024 1:59 AM EDT [facility] Creatinine 0.53(L) 0.70 - 1.20 mg/dL 09/22/2024 1:[facility] Sodium 139 135 - 145 mMol/L 09/22/2024 1:59 AM [facility] Potassium 4.0 3.5 - 5.0 mMol/L 09/22/2024 1:59 [facility] Chloride 104 98 - 107 mMol/L 09/22/2024 1:59 AM [facility] Carbon Dioxide 23 22 - 31 mMol/L 09/22/2024 1:59 [facility] Anion Gap 12 5 - 15 mMol/L 09/22/2024 1:59 [facility] Calcium 8.8 8.5 - 10.5 mg/dL 09/22/2024 1:59 AM [facility] Est Glomerular Filtration Rate - Female 98 mL/min/1. 73 m?? 09/22/2024 1:59 [facility] Comment: This patient's estimated [...] Patel MD CHEMISTRY ORDERABLES Performing Organization Address City/State/[facility] Co de Phone Number [facility] [place] [address] * (ABNORMAL) CBC (with Diff) (09/22/2024 1:26 AM EDT) White Blood Cell 16.65(H) 4.00 - 9.50 x10(3)/mc L 09/22/2024 1:35 AM EDT [facility] Red Blood Cell 3.30(L) 4.00 - 5.21 x10(6)/mc L 09/22/2024 1:35 AM EDT [facility] Hemoglobin 9.9(L) 11.7 - 15.5 g/dL 09/22/2024 1:35 AM EDT [facility] Hematocrit 29.4(L) 35.7 - 45.8 % 09/22/2024 1:35 AM EDT [facility] Mean Cell Volume 89.1 82.6 - 94.4 fL 09/22/2024 1:35 AM EDT [facility] Mean Cell Hemoglobin 30.0 27.1 - 32.0 pg 09/22/2024 1:35 AM EDT [facility] Mean Cell Hemoglobin Concentration 33.7 31.7 - 35.0 g/dL 09/22/2024 1:35 AM [facility] Platelet 274 145 - 357 x10(3)/mc L 09/22/2024 1:35 AM [facility] Mean Platelet Volume 11.1 7.6 - 12.9 fL 09/22/2024 1:35 AM [facility] RDW Standard Deviation 39.8 37.0 - 46.0 fL 09/22/2024 1:35 AM [facility] RDW coefficient of variation 12.3 11.5 - 14.1 % 09/22/2024 1:35 AM [facility] NRBC% auto 0.0 % 09/22/2024 1:35 AM [facility] NRBC Absolute <0.01 <0.01 x10(3)/mc L 09/22/2024 1:35 AM [facility] Neutrophil % 89.9 % 09/22/2024 1:35 AM [facility] Neutrophil Absolute (ANC) - Automated 14.97(H) 1.70 - 6.10 x10(3)/mc L 09/22/2024 1:35 AM [facility] Lymph % 3.0 % 09/22/2024 1:35 AM [facility] Lymph Absolute 0.50(L) 0.90 - 3.20 x10(3)/mc L 09/22/2024 1:35 AM [facility] Monocyte % 5.6 % 09/22/2024 1:35 AM [facility] Monocyte Absolute 0.93(H) 0.30 - 0.90 x10(3)/mc L 09/22/2024 1:35 AM [facility] Eos % 0.0 % 09/22/2024 1:35 AM [facility] Eos Absolute <0.04 0.00 - 0.40 x10(3)/mc L 09/22/2024 1:35 AM EDT [facility] Basophil % 0.1 % 09/22/2024 1:35 AM EDT [facility] Baso Absolute <0.04 0.00 - 0.10 x10(3)/mc L 09/22/2024 1:35 AM EDT [facility] Immature Gran % 1.4 % 1:35 AM EDT [facility] Immature Gran Absolute 0.23(H) 0.00 - 0.04 x10(3)/mc L 09/22/2024 1:35 AM EDT [facility] Blood VENOUS BLOOD SPECIMEN / Unknown IP Care Team Draw / Unknown 09/22/2024 1:26 AM EDT 09/22/2024 1:31 AM EDT Librado Patel MD HEMATOLOGY ORDERABLE S [facility] [address] * POC, GLUCOSE (09/21/2024 11:37 PM EDT) Glucometer, POC 191 65 - 199 mg/dL 09/21/2024 11:38 PM EDT [facility] Comment:Supplemental ranges: <140 mg/dL before meals <180 mg/dL all other times of the day. Blood CAPILLARY BLOOD / Unknown 09/21/2024 11:37 PM EDT 09/21/2024 11:38 PM EDT Mariola Calixto MD POINT OF CARE TEST ORDERABLES [facility] [place] [address] * POC, GLUCOSE (09/21/2024 7:52 PM EDT) Glucometer, POC 175 65 - 199 mg/dL 09/21/2024 7:52 PM EDT [facility] Comment:Supplemental ranges: <140 mg/dL before meals <180 mg/dL all other times of the day. Blood CAPILLARY BLOOD / Unknown 09/21/2024 7:52 PM EDT 09/21/2024 7:53 PM EDT Mariola Calixto MD POINT OF CARE TEST ORDERABLES Performing Organization Address [facility] Co de Phone Number [facility] [place] [address] * POC, GLUCOSE (09/21/2024 4:03 PM EDT) Glucometer, POC 165 65 - 199 mg/dL 09/21/2024 4:03 PM EDT [facility] Comment:Supplemental ranges: <140 mg/dL before meals <180 mg/dL all other times of the day. Blood CAPILLARY BLOOD / Unknown 09/21/2024 4:03 PM EDT 09/21/2024 4:03 PM EDT Mariola Calixto MD POINT OF CARE TEST ORDERABLES Performing Organization Address [facility] Co de Phone Number [facility] [place] [address] * XR Chest One View (09/21/2024 2:01 PM EDT) WORKSTATION ID [id number] [facility] Anatomical Region Laterality Modality Chest [...] who have questions please contact the health healthcare consultant that requested your imaging first. ? Narrative [...] patients who have questions please contactthe health healthcare consultant that requested your imaging first. Mariola Calixto MD IMG DX ORDERABLES * XR Abdomen 1 view (Generic) (09/21/2024 2:01 PM EDT) Pathologist [employer] WORKSTATION ID [id number] [facility] Anatomical Region Laterality Modality Abdomen N/A Digital [...] who have questions please contact the health healthcare consultant that requested your imaging first. ? Narrative 09/21/2024 3:40 PM EDT EXAMINATION: XR ABDOMEN 1 VIEW (GENERIC) CLINICAL HISTORY: Verify tube placement (as entered by ordering provider in the order requisition) TECHNIQUE: Portable supine AP view of the left abdomen. ??The upper abdomen, lower abdomen, pelvis, and right lateral margin of the abdomen are excluded from the imaged [id number]. COMPARISON: 09/18/2024 FINDINGS: The lower chest and [...] of the abdomen are excluded from theimaged [id number]. COMPARISON: 09/18/2024 FINDINGS: The lower chest and [...] patients who have questions please contactthe health healthcare consultant that requested your imaging first. Mariola Calixto MD IMG DX ORDERABLES * INTUBATION (09/21/2024 12:55 PM EDT) Narrative Bonnie Vazquez PA - 09/21/2024 12:55 PM EDT Bonnie Vazquez PA ? 09/21/2024 ??1:12 PM Intubation Procedure Note Reason for Intubation: Airway obstruction and Airway protection. Procedure Diagnosis: Respiratory distress [facility] Procedure[facility] Risks and Benefits: The risks and benefits [...] status comments: First attempt by this medical underwriter. Encountered lots of oral secretions with edematous [...] - 199 mg/dL 09/21/2024 11:13 AM EDT [facility] Comment:Supplemental ranges: <140 mg/dL before meals <180 mg/dL all other times of the day. Blood CAPILLARY BLOOD / Unknown 09/21/2024 11:13 AM EDT 09/21/2024 11:13 AM EDT Mariola Calixto MD POINT OF CARE TEST ORDERABLES Performing Organization Address City/[facility]/ZIP Co de Phone Number [facility] [place] [address] * POC, GLUCOSE (09/21/2024 7:46 AM EDT) Glucometer, POC 167 65 - 199 mg/dL 09/21/2024 7:47 AM EDT [facility] Comment:Supplemental ranges: <140 mg/dL before meals <180 mg/dL all other times of the day. Blood CAPILLARY BLOOD / Unknown 09/21/2024 7:46 AM EDT 09/21/2024 7:47 AM EDT Mariola Calixto MD POINT OF CARE TEST ORDERABLES [facility] [place] [id number] * POC, GLUCOSE (09/21/2024 7:26 AM EDT) Glucometer, POC 166 65 - 199 mg/dL 09/21/2024 7:27 AM EDT [facility] Comment:Supplemental ranges: <140 mg/dL before meals <180 mg/dL all other times of the day. Blood CAPILLARY BLOOD / Unknown 09/21/2024 7:26 AM EDT 09/21/2024 7:27 AM EDT Mariola Calixto MD POINT OF CARE TEST ORDERABLES Performing Organization Address [facility]/ZIP Co de Phone Number [facility] [place] [address] * POC, GLUCOSE (09/21/2024 4:53 AM EDT) Glucometer, POC 176 65 - 199 mg/dL 09/21/2024 4:54 AM EDT [facility] Comment:Supplemental ranges: <140 mg/dL before meals <180 mg/dL all other times of the day. Blood CAPILLARY BLOOD / Unknown 09/21/2024 4:53 AM EDT 09/21/2024 4:54 AM EDT Mariola Calixto MD POINT OF CARE TEST ORDERABLES Performing Organization Address [facility]/ZIP Co de Phone Number [facility] [place] [address] * CT Head wo Contrast (Generic) (09/21/2024 3:50 AM EDT) WORKSTATION ID [id number] RAD Anatomical Region Laterality Modality Head Computed [...] who have questions please contact the health healthcare consultant that requested your imaging first. ? Narrative [...] patients who have questions please contactthe health healthcare consultant that requested your imaging first. Mariola Calixto MD IMG CT ORDERABLES * Phosphorus (09/21/2024 12:21 AM EDT) Pathologist [facility] Phosphorus 3.2 2.5 - 4.5 mg/dL 09/21/2024 1:06 AM EDT [facility] Blood VENOUS BLOOD SPECIMEN / Unknown IP Care Team Draw / Unknown 09/21/2024 12:21 AM EDT 09/21/2024 12:37 AM EDT Librado Patel MD CHEMISTRY ORDERABLES [facility] [place] [address] * Magnesium (09/21/2024 12:21 AM EDT) Magnesium 0.91 0.69 - 1.07 mMol/L 09/21/2024 1:06 AM EDT [facility] Blood VENOUS BLOOD SPECIMEN / Unknown IP Care Team Draw / Unknown 09/21/2024 12:21 AM EDT 09/21/2024 12:37 AM EDT Librado Patel MD CHEMISTRY ORDERABLES [facility] [address] * (ABNORMAL) Basic Metabolic Panel (09/21/2024 12:21 AM EDT) Glucose 185 65 - 199 mg/dL 09/21/2024 1:06 AM EDT [facility] Comment:Glucose Concentratio n >=200 mg/dL plus symptoms is consistent with Diabetes Mellitus. Blood Urea Nitrogen 30(H) 8 - 18 mg/dL 09/21/2024 1:06 AM [facility] Creatinine 0.54(L) 0.70 - 1.20 mg/dL 09/21/2024 1:06 AM [facility] Sodium 141 135 - 145 mMol/L 09/21/2024 1:06 AM [facility] Potassium 4.2 3.5 - 5.0 mMol/L 09/21/2024 1:06 AM [facility] Chloride 107 98 - 107 mMol/L 09/21/2024 1:06 AM [facility] Carbon Dioxide 23 22 - 31 mMol/L 09/21/2024 1:06 AM [facility] Anion Gap 11 5 - 15 mMol/L 09/21/2024 1:06 AM [facility] Calcium 8.6 8.5 - 10.5 mg/dL 09/21/2024 1:06 AM [facility] Est Glomerular Filtration Rate - Female 98 mL/min/1. 73 m?? 09/21/2024 1:06 AM [facility] Comment: This patient's estimated GFR [...] AM EDT Librado Patel MD CHEMISTRY ORDERABLES [facility] [place] [address] * (ABNORMAL) CBC (with Diff) (09/21/2024 12:21 AM EDT) White Blood Cell 14.84(H) 4.00 - 9.50 x10(3)/mc L 09/21/2024 12:42 AM [facility] Red Blood Cell 3.02(L) 4.00 - 5.21 x10(6)/mc L 09/21/2024 12:42 AM [facility] Hemoglobin 8.9(L) 11.7 - 15.5 g/dL 09/21/2024 12:42 AM [facility] Hematocrit 27.2(L) 35.7 - 45.8 % 09/21/[facility]24 [facility] Mean Cell Volume 90.1 82.6 - 94.4 fL 09/21/2024 12:42 AM [facility] Mean Cell Hemoglobin 29.5 27.1 - 32.0 pg 09/21/2024 12:42 AM [facility] Mean Cell Hemoglobin Concentration 32.7 31.7 - 35.0 g/dL 09/21/2024 12:42 AM [facility] Platelet 217 145 - 357 x10(3)/mc L 09/21/2024 12:42 AM [facility] Mean Platelet Volume 11.1 7.6 - 12.9 fL 09/21/2024 12:42 AM [facility] RDW Standard Deviation 39.2 37.0 - 46.0 fL 09/21/2024 12:42 AM [facility] RDW coefficient of variation 12.2 11.5 - 14.1 % 09/21/2024 12:42 AM [facility] NRBC% auto 0.0 % 09/21/2024 12:42 AM [facility] NRBC Absolute <0.01 <0.01 x10(3)/mc L 09/21/2024 12:42 AM [facility] Neutrophil % 86.5 % 09/21/2024 12:42 AM [facility] Neutrophil Absolute (ANC) - Automated 12.84(H) 1.70 - 6.10 x10(3)/mc L 09/21/2024 12:42 AM [facility] Lymph % 5.9 % 09/21/2024 12:42 AM [facility] Lymph Absolute 0.87(L) 0.90 - 3.20 x10(3)/mc L 09/21/2024 12:42 AM [facility] Monocyte % 6.6 % 09/21/2024 12:42 AM [facility] Monocyte Absolute 0.98(H) 0.30 - 0.90 x10(3)/mc L 09/21/2024 12:42 AM [facility] Eos % 0.0 % 09/21/2024 12:42 AM [facility] Eos Absolute <0.04 0.00 - 0.40 x10(3)/mc L 09/21/2024 12:42 AM [facility] Basophil % 0.1 % 09/21/2024 12:42 AM [facility] Baso Absolute <0.04 0.00 - 0.10 x10(3)/mc L 09/21/2024 12:42 AM EDT [facility] Immature Gran % 0.9 % 12:42 AM EDT [facility] Immature Gran Absolute 0.14(H) 0.00 - 0.04 x10(3)/mc L 09/21/2024 12:42 AM EDT [facility] Blood VENOUS BLOOD SPECIMEN / Unknown IP Care Team Draw / Unknown 09/21/2024 12:21 AM EDT 09/21/2024 12:37 AM EDT Librado Patel MD HEMATOLOGY ORDERABLE S [facility] [place] [address] * POC, GLUCOSE (09/21/2024 12:20 AM EDT) Glucometer, POC 190 65 - 199 mg/dL 09/21/2024 12:21 AM EDT [facility] Comment:Supplemental ranges: <140 mg/dL before meals <180 mg/dL all other times of the day. Blood CAPILLARY BLOOD / Unknown 09/21/2024 12:20 AM EDT 09/21/2024 12:21 AM EDT Mariola Calixto MD POINT OF CARE TEST ORDERABLES [facility] [place] [address] * POC, GLUCOSE (09/20/2024 9:46 PM EDT) Glucometer, POC 195 65 - 199 mg/dL 09/20/2024 9:47 PM EDT [facility] Comment:Supplemental ranges: <140 mg/dL before meals <180 mg/dL all other times of the day. Blood CAPILLARY BLOOD / Unknown 09/20/2024 9:46 PM EDT 09/20/2024 9:47 PM EDT Mariola Calixto MD POINT OF CARE TEST ORDERABLES Performing Organization Address [facility] Co de Phone Number [facility] [place] [place] [address] * POC, GLUCOSE (09/20/2024 3:57 PM EDT) Glucometer, POC 196 65 - 199 mg/dL 09/20/2024 3:57 PM EDT [facility] Comment:Supplemental ranges: <140 mg/dL before meals <180 mg/dL all other times of the day. Blood CAPILLARY BLOOD / Unknown 09/20/2024 3:57 PM EDT 09/20/2024 3:58 PM EDT Mariola Calixto MD POINT OF CARE TEST ORDERABLES Performing Organization Address [facility] Co de Phone Number [facility] [place] [address] * POC, GLUCOSE (09/20/2024 11:55 AM EDT) Glucometer, POC 183 65 - 199 mg/dL 09/20/2024 11:56 AM EDT [facility] Comment:Supplemental ranges: <140 mg/dL before meals <180 mg/dL all other times of the day. Blood CAPILLARY BLOOD / Unknown 09/20/2024 11:55 AM EDT 09/20/2024 11:56 AM EDT Mariola Calixto MD POINT OF CARE TEST ORDERABLES Performing Organization Address City/[facility] Co de Phone Number [facility] [place] [address] * Duplex Study for DVT, Bilat legs (09/20/2024 11:29 AM EDT) VB Text Report Department: Vascular Surgery Lab Patient: [id number] (DAMION LUCERO) CPT: 18490 Referring Physician: LIZA LOVE ?? Phone: Indications: [...] Love APRN VASCULAR ORDERABLES Performing Organization Address City/[facility]/ZIP Co de Phone Number [facility] * POC, GLUCOSE (09/20/2024 9:50 AM EDT) [facility] Signature Glucometer, POC 189 65 - 199 mg/dL 09/20/2024 9:50 AM EDT [facility] Comment:Supplemental ranges: <140 mg/dL before meals <180 mg/dL all other times of the day. Blood CAPILLARY BLOOD / Unknown 09/20/2024 9:50 AM EDT 09/20/2024 9:51 AM EDT Mariola Calixto MD POINT OF CARE TEST ORDERABLES Performing Organization Address City/[facility]/ZIP Co de Phone Number [facility] [place] [address] * POC, GLUCOSE (09/20/2024 7:53 AM EDT) Glucometer, POC 179 65 - 199 mg/dL 09/20/2024 7:53 AM EDT [facility] Comment:Supplemental ranges: <140 mg/dL before meals <180 mg/dL all other times of the day. Blood CAPILLARY BLOOD / Unknown 09/20/2024 7:53 AM EDT 09/20/2024 7:53 AM EDT Mariola Calixto MD POINT OF CARE TEST ORDERABLES Performing Organization Address [facility] Co de Phone Number [facility] [place] [address] * POC, GLUCOSE (09/20/2024 3:53 AM EDT) Glucometer, POC 195 65 - 199 mg/dL 09/20/2024 3:53 AM EDT [facility] Comment:Supplemental ranges: <140 mg/dL before meals <180 mg/dL all other times of the day. Blood CAPILLARY BLOOD / Unknown 09/20/2024 3:53 AM EDT 09/20/2024 3:54 AM EDT Mukund Espinosa MD POINT OF CARE TEST O RDERABLES Performing Organization Address [facility] Co de Phone Number [facility] [place] [address] * POC, GLUCOSE (09/20/2024 12:09 AM EDT) Glucometer, POC 182 65 - 199 mg/dL 09/20/2024 12:09 AM EDT [facility] Comment:Supplemental ranges: <140 mg/dL before meals <180 mg/dL all other times of the day. Blood CAPILLARY BLOOD / Unknown 09/20/2024 12:09 AM EDT 09/20/2024 12:09 AM EDT Mukund Espinosa MD POINT OF CARE TEST O RDERABLES [facility] [place] [address] * Triglyceride (09/20/2024 12:09 AM EDT) Triglyceride 95 mg/dL 09/20/2024 12:51 AM EDT [facility] Comment: Normal: <150 mg/dL Borderline High: 150-199 mg/dL High: 200-499 mg/dL Very High: > or =500 mg/dL Blood VENOUS BLOOD SPECIMEN / Unknown IP Care Team Draw / Unknown 09/20/2024 12:09 AM EDT 09/20/2024 12:14 AM EDT Liza Love APRN CHEMISTRY ORDERABLES [facility] [address] * Phosphorus (09/20/2024 12:09 AM EDT) Phosphorus 2.9 2.5 - 4.5 mg/dL 09/20/2024 12:51 AM EDT [facility] Blood VENOUS BLOOD SPECIMEN / Unknown IP Care Team Draw / Unknown 09/20/2024 12:09 AM EDT 09/20/2024 12:14 AM EDT Librado Patel MD CHEMISTRY ORDERABLES [facility] [place] [address] * Magnesium (09/20/2024 12:09 AM EDT) Magnesium 0.88 0.69 - 1.07 mMol/L 09/20/2024 12:51 AM EDT [facility] Blood VENOUS BLOOD SPECIMEN / Unknown IP Care Team Draw / Unknown 09/20/2024 12:09 AM EDT 09/20/2024 12:14 AM EDT Librado Patel MD CHEMISTRY ORDERABLES [facility] [address] * (ABNORMAL) Basic Metabolic Panel (09/20/2024 12:09 AM EDT) Glucose 187 65 - 199 mg/dL 09/20/2024 12:51 AM [facility] Comment:Glucose Concentratio n >=200 mg/dL plus symptoms is consistent with Diabetes Mellitus. Blood Urea Nitrogen 23(H) 8 - 18 mg/dL 09/20/2024 12:51 AM [facility] Creatinine 0.52(L) 0.70 - 1.20 mg/dL 09/20/2024 12:51 AM [facility] Sodium 139 135 - 145 mMol/L 09/20/2024 12:51 AM [facility] Potassium 4.2 3.5 - 5.0 mMol/L 09/20/2024 12:51 AM [facility] Chloride 107 98 - 107 mMol/L 09/20/2024 12:51 AM [facility] Carbon Dioxide 22 22 - 31 mMol/L 09/20/2024 12:51 AM [facility] Anion Gap 10 5 - 15 mMol/L 09/20/2024 12:51 AM [facility] Calcium 8.4(L) 8.5 - 10.5 mg/dL 09/20/2024 12:51 AM [facility] Est Glomerular Filtration Rate - Female 99 mL/min/1. 73 m?? 09/20/2024 12:51 AM [facility] Comment: This patient's estimated GFR [...] AM EDT Librado Patel MD CHEMISTRY ORDERABLES [facility] [address] * (ABNORMAL) CBC (with Diff) (09/20/2024 12:09 AM EDT) White Blood Cell 13.82(H) 4.00 - 9.50 x10(3)/mc L 09/20/2024 12:35 AM EDT [facility] Red Blood Cell 3.01(L) 4.00 - 5.21 x10(6)/mc L 09/20/2024 12:35 AM EDT [facility] Hemoglobin 8.9(L) 11.7 - 15.5 g/dL 09/20/2024 12:35 AM [facility] Hematocrit 26.9(L) 35.7 - 45.8 % 09/20/2024 12:35 AM [facility] Mean Cell Volume 89.4 82.6 - 94.4 fL 09/20/2024 12:35 AM T [facility] Mean Cell Hemoglobin 29.6 27.1 - 32.0 pg 09/20/2024 12:35 AM [facility] Mean Cell Hemoglobin Concentration 33.1 31.7 - 35.0 g/dL 09/20/2024 12:35 AM [facility] Platelet 191 145 - 357 x10(3)/mc L [facility]/20[facility]24 [facility] Mean Platelet Volume 11.1 7.6 - 12.9 fL 09/20/2024 12:35 AM [facility] RDW Standard Deviation 41.0 37.0 - 46.0 fL 09/20/2024 12:35 AM [facility] RDW coefficient of variation 12.6 11.5 - 14.1 % 09/20/2024 12:35 AM [facility] NRBC% auto 0.0 % 09/20/2024 12:35 AM [facility] NRBC Absolute <0.01 <0.01 x10(3)/mc L 09/20/2024 12:35 AM [facility] Neutrophil % 90.2 % 09/20/2024 12:35 AM [facility] Neutrophil Absolute (ANC) - Automated 12.48(H) 1.70 - 6.10 x10(3)/mc L 09/20/2024 12:35 AM [facility] Lymph % 4.7 % 09/20/2024 12:35 AM [facility] Lymph Absolute 0.65(L) 0.90 - 3.20 x10(3)/mc L 09/20/2024 12:35 AM [facility] Monocyte % 4.3 % 09/20/2024 12:35 AM [facility] Monocyte Absolute 0.59 0.30 - 0.90 x10(3)/mc L 09/20/2024 12:35 AM [facility] Eos % 0.0 % 09/20/2024 12:35 AM [facility] Eos Absolute <0.04 0.00 - 0.40 x10(3)/mc L 09/20/2024 12:35 AM [facility] Basophil % 0.1 % 09/20/2024 12:35 AM [facility] Baso Absolute <0.04 0.00 - 0.10 x10(3)/mc L 09/20/2024 12:35 AM [facility] Immature Gran % 0.7 % 12:35 AM EDT [facility] Immature Gran Absolute 0.09(H) 0.00 - 0.04 x10(3)/mc L 09/20/2024 12:35 AM EDT [facility] Blood VENOUS BLOOD SPECIMEN / Unknown IP Care Team Draw / Unknown 09/20/2024 12:09 AM EDT 09/20/2024 12:14 AM EDT Librado Patel MD HEMATOLOGY ORDERABLE S Performing Organization Address City/[facility]/ZIP Co de Phone Number [facility] [place] [address] * POC, GLUCOSE (09/19/2024 7:36 PM EDT) Pathologist [employer] Glucometer, POC 175 65 - 199 mg/dL 09/19/2024 7:36 PM EDT [facility] Comment:Supplemental ranges: <140 mg/dL before meals <180 mg/dL all other times of the day. 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 Numerous small foci of decreased acute infarction both along and separate from the site of hemorrhage. These foci are present in both cerebral hemispheres and have a pattern most consistent with embolic infarction. No evidence of REEL[employer]PERATOR malignancy Thank you for letting us participate in the care of this patient. ??If you are a health care provider and have any questions regarding this report, please contact the number below. ??For patients who have questions please contact the health healthcare consultant that requested your imaging first. ? Narrative [...] consistent with embolic infarction. No evidence of REELER OPERATOR malignancy Thank you for letting us participate in the care of this patient. If youare a health care provider and have any questions regarding this report,please contact the number below. For patients who have questions please contactthe health healthcare consultant that requested your imaging first. Neelam Gill APRN [facility] [place] MRI ORDERABLES * POC, GLUCOSE (09/19/2024 3:30 PM EDT) [facility] Glucometer, POC 181 65 - 199 mg/dL 09/19/2024 3:30 PM EDT [facility] Comment:Supplemental ranges: <140 mg/dL before meals <180 mg/dL all other times of the day. Blood CAPILLARY BLOOD / Unknown 09/19/2024 3:30 PM EDT 09/19/2024 3:30 PM EDT Mukund Espinosa MD POINT OF CARE TEST O ALDO [facility] [place] [address] * POC, GLUCOSE (09/19/2024 12:34 PM EDT) Glucometer, POC 174 65 - 199 mg/dL 09/19/2024 12:34 PM EDT [facility] Comment:Supplemental ranges: <140 mg/dL before meals <180 mg/dL all other times of the day. Blood CAPILLARY BLOOD / Unknown 09/19/2024 12:34 PM EDT 09/19/2024 12:34 PM EDT Mukund Espinosa MD POINT OF CARE TEST O ALDO Performing Organization Address City/[facility]/ZIP Co de Phone Number [facility] [place] [address] * POC, GLUCOSE (09/19/2024 7:35 AM EDT) Glucometer, POC 134 65 - 199 mg/dL 09/19/2024 7:35 AM EDT [facility] Comment:Supplemental ranges: <140 mg/dL before meals <180 mg/dL all other times of the day. Blood CAPILLARY BLOOD / Unknown 09/19/2024 7:35 AM EDT 09/19/2024 7:35 AM EDT Mukund Espinosa MD POINT OF CARE TEST O ALDO [facility] [address] * POC, GLUCOSE (09/19/2024 4:23 AM EDT) Glucometer, POC 131 65 - 199 mg/dL 09/19/2024 4:24 AM EDT [facility] Comment:Supplemental ranges: <140 mg/dL before meals <180 mg/dL all other times of the day. Blood CAPILLARY BLOOD / Unknown 09/19/2024 4:23 AM EDT 09/19/2024 4:24 AM EDT Mukund Espinosa MD POINT OF CARE TEST O RDERAASHLIE [facility] [address] * POC, GLUCOSE (09/19/2024 1:00 AM EDT) Glucometer, POC 163 65 - 199 mg/dL 09/19/2024 1:00 AM EDT [facility] Comment:Supplemental ranges: <140 mg/dL before meals <180 mg/dL all other times of the day. Blood CAPILLARY BLOOD / Unknown 09/19/2024 1:00 AM EDT 09/19/2024 1:00 AM EDT Mukund Espinosa MD POINT OF CARE TEST O ALDO [facility] [address] * (ABNORMAL) Phosphorus (09/19/2024 12:55 AM EDT) Phosphorus 1.7(L) 2.5 - 4.5 mg/dL 09/19/2024 1:38 AM EDT [facility] Blood VENOUS BLOOD SPECIMEN / Unknown IP Care Team Draw / Unknown 09/19/2024 12:55 AM EDT 09/19/2024 1:05 AM EDT Librado Patel MD CHEMISTRY ORDERABLES [facility] [place] [address] * Magnesium (09/19/2024 12:55 AM EDT) Pathologist [facility] Magnesium 0.77 0.69 - 1.07 mMol/L 09/19/2024 1:38 AM EDT [facility] Blood VENOUS BLOOD SPECIMEN / Unknown IP Care Team Draw / Unknown 09/19/2024 12:55 AM EDT 09/19/2024 1:05 AM EDT Librado Patel MD CHEMISTRY ORDERABLES [facility] [address] * (ABNORMAL) Basic Metabolic Panel (09/19/2024 12:55 AM EDT) Pathologist [facility] Glucose 164 65 - 199 mg/dL 09/19/2024 1:38 AM EDT [facility] Comment:Glucose Concentratio n >=200 mg/dL plus symptoms is consistent with Diabetes Mellitus. Blood Urea Nitrogen 17 8 - 18 mg/dL 09/19/2024 1:38 AM T [facility] Creatinine 0.49(L) 0.70 - 1.20 mg/dL 09/19/2024 1:38 AM [facility] Sodium 140 135 - 145 mMol/L 09/19/2024 1:38 AM [facility] Potassium 3.6 3.5 - 5.0 mMol/L 09/19/2024 1:38 AM [facility] Chloride 110(H) 98 - 107 mMol/L 09/19/2024 1:38 AM [facility] Carbon Dioxide 21(L) 22 - 31 mMol/L 09/19/2024 1:38 AM [facility] Anion Gap 9 5 - 15 mMol/L 09/19/2024 1:38 AM [facility] Calcium 8.2(L) 8.5 - 10.5 mg/dL 09/19/2024 1:[facility] Est Glomerular Filtration Rate - Female 100 mL/min/1. 73 m?? 09/19/2024 1:38 AM EDT [facility] Comment: This patient's estimated [...] AM EDT Librado Patel MD CHEMISTRY ORDERABLES [facility] [address] * (ABNORMAL) CBC (with Diff) (09/19/2024 12:55 AM EDT) White Blood Cell 18.90(H) 4.00 - 9.50 x10(3)/mc L 09/19/2024 1:10 AM EDT [facility] Red Blood Cell 3.00(L) 4.00 - 5.21 x10(6)/mc L 09/19/2024 1:10 AM EDT [facility] Hemoglobin 8.9(L) 11.7 - 15.5 g/dL 09/19/2024 1:10 AM EDT [facility] Hematocrit 27.1(L) 35.7 - 45.8 % 09/19/2024 1:10 AM EDT [facility] Mean Cell Volume 90.3 82.6 - 94.4 fL 09/19/2024 1:10 AM EDT [facility] Mean Cell Hemoglobin 29.7 27.1 - 32.0 pg 09/19/2024 1:10 AM [facility] Mean Cell Hemoglobin Concentration 32.8 31.7 - 35.0 g/dL 09/19/2024 1:10 AM [facility] Platelet 204 145 - 357 x10(3)/mc L 09/19/2024 1:10 AM [facility] Mean Platelet Volume 10.5 7.6 - 12.9 fL 09/19/2024 1:10 AM [facility] RDW Standard Deviation 43.1 37.0 - 46.0 fL 09/19/2024 1:10 AM [facility] RDW coefficient of variation 13.1 11.5 - 14.1 % 09/19/2024 1:10 AM [facility] NRBC% auto 0.0 % 09/19/2024 1:10 AM [facility] NRBC Absolute <0.01 <0.01 x10(3)/mc L 09/19/2024 1:10 AM [facility] Neutrophil % 81.5 % 09/19/2024 1:10 AM [facility] Neutrophil Absolute (ANC) - Automated 15.41(H) 1.70 - 6.10 x10(3)/mc L 09/19/2024 1:10 AM [facility] Lymph % 8.9 % 09/19/2024 1:10 AM [facility] Lymph Absolute 1.69 0.90 - 3.20 x10(3)/mc L 09/19/2024 1:10 AM [facility] Monocyte % 8.7 % 09/19/2024 1:10 AM [facility] Monocyte Absolute 1.64(H) 0.30 - 0.90 x10(3)/mc L 09/19/2024 1:10 AM [facility] Eos % 0.1 % 09/19/2024 1:10 AM EDT [facility] Eos Absolute <0.04 0.00 - 0.40 x10(3)/mc L 09/19/2024 1:10 AM EDT [facility] Basophil % 0.2 % 09/19/2024 1:10 AM EDT [facility] Baso Absolute <0.04 0.00 - 0.10 x10(3)/mc L 09/19/2024 1:10 AM EDT [facility] Immature Gran % 0.6 % 1:10 AM EDT [facility] Immature Gran Absolute 0.11(H) 0.00 - 0.04 x10(3)/mc L 09/19/2024 1:10 AM EDT [facility] Blood VENOUS BLOOD SPECIMEN / Unknown IP Care Team Draw / Unknown 09/19/2024 12:55 AM EDT 09/19/2024 1:05 AM EDT Librado Patel MD HEMATOLOGY ORDERABLE S [facility] [address] * POC, GLUCOSE (09/18/2024 8:13 PM EDT) Glucometer, POC 148 65 - 199 mg/dL 09/18/2024 8:13 PM EDT [facility] Comment:Supplemental ranges: <140 mg/dL before meals <180 mg/dL all other times of the day. Blood CAPILLARY BLOOD / Unknown 09/18/2024 8:13 PM EDT 09/18/2024 8:13 PM EDT Mukund Espinosa MD POINT OF CARE TEST O RDERABLES [facility] [address] * POC, GLUCOSE (09/18/2024 4:26 PM EDT) Glucometer, POC 152 65 - 199 mg/dL 09/18/2024 4:27 PM EDT [facility] Comment:Supplemental ranges: <140 mg/dL before meals <180 mg/dL all other times of the day. Blood CAPILLARY BLOOD / Unknown 09/18/2024 4:26 PM EDT 09/18/2024 4:27 PM EDT Mukund Espinosa MD POINT OF CARE TEST O RDERABLES [facility] [address] * Lower Respiratory Culture (09/18/2024 2:44 PM EDT) Lower Respiratory Culture Rare mixed bacterial morphotypes suggestive of normal upper respiratory franco 09/20/2024 11:07 AM EDT [facility] Gram Stain Many Neutrophils seen 09/20/2024 11:07 AM EDT [facility] Gram Stain No squamous epithelial cells 09/20/2024 11:07 AM EDT [facility] Gram Stain No microorganisms seen 09/20/2024 11:07 AM EDT [facility] Bronchial Alveolar Lavage SPECIMEN FROM [facility] / Unknown Non Blood Collection / Unknown 09/18/2024 2:44 PM EDT 09/18/2024 3:02 PM EDT Neelam Gill APRN MICROBIOLOGY - GENER AL ORDERABLES [facility] [address] * Blood culture (09/18/2024 12:47 PM EDT) Blood Culture No growth at 120 hours 09/23/2024 2:01 PM EDT [facility] Blood VENOUS BLOOD SPECIMEN / Unknown IP Care Team Draw / Unknown 09/18/2024 12:47 PM EDT 09/18/2024 12:50 PM EDT Neelam Gill APRN MICROBIOLOGY - BLOOD ORDERABLES [facility] [address] * Blood culture (09/18/2024 12:47 PM EDT) Blood Culture No growth at 120 hours 09/23/2024 2:01 PM EDT [facility] Blood VENOUS BLOOD SPECIMEN / Unknown IP Care Team Draw / Unknown 09/18/2024 12:47 PM EDT 09/18/2024 12:50 PM EDT Neelam Gill [employer] MICROBIOLOGY - BLOOD ORDERABLES Performing Organization Address City/[facility]/ZIP Co de Phone Number [facility] [place] [address] * XR Abdomen 1 view (Generic) (09/18/2024 12:31 PM EDT) Pathologist [employer] WORKSTATION ID [id number] RAD Anatomical Region Laterality Modality Abdomen N/A [...] who have questions please contact the health healthcare consultant that requested your imaging first. ? Narrative [...] patients who have questions please contactthe health healthcare consultant that requested your imaging first. Neelam Gill APRN IMG DX ORDERABLES * POC, GLUCOSE (09/18/2024 12:10 PM EDT) [facility] Glucometer, POC [phone] - 199 mg/dL 09/18/2024 12:11 PM EDT [facility] Comment:Supplemental ranges: <140 mg/dL before meals <180 mg/dL all other times of the day. Blood CAPILLARY BLOOD / Unknown 09/18/2024 12:10 PM EDT 09/18/2024 12:11 PM EDT Mukund Espinosa MD POINT OF CARE TEST O RDERABLES [facility] [place] [address] * XR Chest One View (09/18/2024 8:43 AM EDT) [employer] Signature WORKSTATION ID [id number] RAD Anatomical Region Laterality Modality Chest N/A [...] who have questions please contact the health healthcare consultant that requested your imaging first. ? Narrative [...] Endotracheal tube tip approximately 2 cmabove the jnoathan. Right subclavian central venous catheter tip near [...] patients who have questions please contactthe health healthcare consultant that requested your imaging first. Neelam Gill APRN IMG DX ORDERABLES * POC, GLUCOSE (09/18/2024 7:47 AM EDT) [facility] Glucometer, POC 141 65 - 199 mg/dL 09/18/2024 7:47 AM EDT [facility] Comment:Supplemental ranges: <140 mg/dL before meals <180 mg/dL all other times of the day. Blood CAPILLARY BLOOD / Unknown 09/18/2024 7:47 AM EDT 09/18/2024 7:48 AM EDT Mukund Espinosa MD POINT OF CARE TEST O RDERABLES [facility] [place] [place] [address] * Sodium (09/18/2024 6:15 AM EDT) Sodium 142 135 - 145 mMol/L 09/18/2024 2:28 PM EDT [facility] Blood VENOUS BLOOD SPECIMEN / Unknown IP Care Team Draw / Unknown 09/18/2024 6:15 AM EDT 09/18/2024 6:21 AM EDT Neelam Gill APRN CHEMISTRY ORDERABLES [facility] [place] [address] * Potassium (09/18/2024 6:15 AM EDT) Potassium 4.0 3.5 - 5.0 mMol/L 09/18/2024 6:35 AM EDT [facility] Blood VENOUS BLOOD SPECIMEN / Unknown IP Care Team Draw / Unknown 09/18/2024 6:15 AM EDT 09/18/2024 6:21 AM EDT Mukund Espinosa MD CHEMISTRY ORDERABLES Performing Organization Address City/[facility]/ZIP Co de Phone Number [facility] [place] [place] [address] * APTT (09/18/2024 6:15 AM EDT) Partial Thromboplastin Time 25 25 - 37 sec 09/18/2024 7:35 AM EDT [facility] Blood VENOUS BLOOD SPECIMEN / Unknown IP Care Team Draw / Unknown 09/18/2024 6:15 AM EDT 09/18/2024 7:05 AM EDT Mukund Espinosa MD HEMATOLOGY ORDERABLE S [facility] [place] [address] * Prothrombin Time (09/18/2024 6:15 AM EDT) Prothrombin Time 12.3 9.4 - 12.5 sec 09/18/2024 7:35 AM EDT [facility] International Normalization Ratio 1.1 <=4.9 09/18/2024 7:35 AM EDT [facility] Comment: An INR < [...] 6:15 AM EDT 09/18/2024 7:05 AM EDT Mukund Espinosa MD HEMATOLOGY ORDERABLE S Performing Organization Address City/[facility]/ZIP Co de Phone Number [facility] [place] [place] [address] * POC, GLUCOSE (09/18/2024 4:37 AM EDT) Glucometer, POC 157 65 - 199 mg/dL 09/18/2024 4:37 AM EDT [facility] Comment:Supplemental ranges: <140 mg/dL before meals <180 mg/dL all other times of the day. Blood CAPILLARY BLOOD / Unknown 09/18/2024 4:37 AM EDT 09/18/2024 4:38 AM EDT Mukund Espinosa MD POINT OF CARE TEST O RDERABLES [facility] [place] [address] * Scan, Peripheral Blood (09/18/2024 12:20 AM EDT) RBC Morphology Normal 09/18/2024 1:08 AM EDT [facility] Platelet Estimate Normal Normal 09/18/2024 1:08 AM EDT [facility] Blood VENOUS BLOOD SPECIMEN / Unknown IP Care Team Draw / Unknown 09/18/2024 12:20 AM EDT 09/18/2024 12:28 AM EDT Jah Altman APRN HEMATOLOGY ORDERAB LES Performing Organization Address City/[facility]/ZIP Co de Phone Number [facility] [place] [address] * (ABNORMAL) Phosphorus (09/18/2024 12:20 AM EDT) Phosphorus 2.4(L) 2.5 - 4.5 mg/dL 09/18/2024 12:58 AM EDT [facility] Blood VENOUS BLOOD SPECIMEN / Unknown IP Care Team Draw / Unknown 09/18/2024 12:20 AM EDT 09/18/2024 12:28 AM EDT Librado Patel MD CHEMISTRY ORDERABLES Performing Organization Address City/[facility]/ZIP Co de Phone Number [facility] [place] [address] * Magnesium (09/18/2024 12:20 AM EDT) Magnesium 0.81 0.69 - 1.07 mMol/L 09/18/2024 12:58 AM EDT [facility] Blood VENOUS BLOOD SPECIMEN / Unknown IP Care Team Draw / Unknown 09/18/2024 12:20 AM EDT 09/18/2024 12:28 AM EDT Librado Patel MD CHEMISTRY ORDERABLES Performing Organization Address City/[facility]/ZIP Co de Phone Number [facility] [place] [address] * (ABNORMAL) Basic Metabolic Panel (09/18/2024 12:20 AM EDT) Glucose 186 65 - 199 mg/dL 09/18/2024 1:19 AM EDT [facility] Comment:Glucose Concentratio n >=200 mg/dL plus symptoms is consistent with Diabetes Mellitus. Blood Urea Nitrogen 15 8 - 18 mg/dL 09/18/2024 1:19 AM [facility] Creatinine 0.57(L) 0.70 - 1.20 mg/dL 09/18/2024 1:19 AM [facility] Sodium 141 135 - 145 mMol/L 09/18/2024 1:19 AM [facility] Potassium 3.6 3.5 - 5.0 mMol/L 09/18/2024 1:19 AM [facility] Chloride 108(H) 98 - 107 mMol/L 09/18/2024 1:19 AM [facility] Carbon Dioxide 22 22 - 31 mMol/L 09/18/2024 1:19 AM [facility] Anion Gap 11 5 - 15 mMol/L 09/18/2024 1:19 AM [facility] Calcium 8.2(L) 8.5 - 10.5 mg/dL 09/18/2024 1:19 AM [facility] Est Glomerular Filtration Rate - Female 97 mL/min/1. 73 m?? 09/18/2024 1:19 AM [facility] Comment: This patient's estimated GFR [...] AM EDT Librado Patel MD CHEMISTRY ORDERABLES [facility] [place] [address] * (ABNORMAL) CBC (with Diff) (09/18/2024 12:20 AM EDT) White Blood Cell 20.04(H) 4.00 - 9.50 x10(3)/mc L 09/18/2024 1:08 AM [facility] Red Blood Cell 3.37(L) 4.00 - 5.21 x10(6)/mc L 09/18/2024 1:08 AM [facility] Hemoglobin 10.2(L) 11.7 - 15.5 g/dL 09/18/2024 1:08 AM [facility] Hematocrit 30.3(L) 35.7 - 45.8 % 09/18/2024 1:08 AM [facility] Mean Cell Volume 89.9 82.6 - 94.4 fL 09/18/2024 1:08 AM [facility] Mean Cell Hemoglobin 30.3 27.1 - 32.0 pg 09/18/2024 1:08 AM [facility] Mean Cell Hemoglobin Concentration 33.7 31.7 - 35.0 g/dL 09/18/2024 1:08 AM [facility] Platelet 250 145 - 357 x10(3)/mc L 09/18/2024 1:08 AM [facility] Mean Platelet Volume 10.3 7.6 - 12.9 fL 09/18/2024 1:08 AM [facility] RDW Standard Deviation 42.9 37.0 - 46.0 fL 09/18/2024 1:08 AM [facility] RDW coefficient of variation 13.1 11.5 - 14.1 % 09/18/2024 1:08 AM [facility] NRBC% auto 0.0 % 09/18/2024 1:08 AM [facility] NRBC Absolute <0.01 <0.01 x10(3)/mc L 09/18/2024 1:08 AM [facility] Neutrophil % 86.6 % 09/18/2024 1:08 AM [facility] Comment:This is an appended report. These results have been appended to a previously preliminary verified report. Neutrophil Absolute (ANC) - Automated 17.33(H) 1.70 - 6.10 x10(3)/mc L 09/18/2024 1:08 AM [facility] Comment:This is an appended report. These results have been appended to a previously preliminary verified report. Lymph % 4.7 % 09/18/2024 1:08 AM [facility] Comment:This is an appended report. These results have been appended to a previously preliminary verified report. Lymph Absolute 0.95 0.90 - 3.20 x10(3)/mc L 09/18/2024 1:08 AM [facility] Comment:This is an appended report. These results have been appended to a previously preliminary verified report. Monocyte % 8.1 % 09/18/2024 1:08 AM [facility] Comment:This is an appended report. These results have been appended to a previously preliminary verified report. Monocyte Absolute 1.63(H) 0.30 - 0.90 x10(3)/mc L 09/18/2024 1:08 AM [facility] Comment:This is an appended report. These results have been appended to a previously preliminary verified report. Eos % 0.0 % 09/18/2024 1:08 AM [facility] Comment:This is an appended report. These results have been appended to a previously preliminary verified report. Eos Absolute <0.04 0.00 - 0.40 x10(3)/mc L 09/18/2024 1:08 AM [facility] Comment:This is an appended report. These results have been appended to a previously preliminary verified report. Basophil % 0.1 % 09/18/2024 1:08 AM [facility] Comment:This is an appended report. These results have been appended to a previously preliminary verified report. Baso Absolute <0.04 0.00 - 0.10 x10(3)/mc L 09/18/2024 1:08 AM EDT [facility] Comment:This is an appended report. These results have been appended to a previously preliminary verified report. Immature Gran % 0.5 % 1:08 AM EDT [facility] Comment:This is an appended report. These results have been appended to a previously preliminary verified report. Immature Gran Absolute 0.11(H) 0.00 - 0.04 x10(3)/mc L 09/18/2024 1:08 AM EDT [facility] Comment:This is an appended report. These results have been appended to a previously preliminary verified report. Blood VENOUS BLOOD SPECIMEN / Unknown IP Care Team Draw / Unknown 09/18/2024 12:20 AM EDT 09/18/2024 12:28 AM EDT Librado Patel MD HEMATOLOGY ORDERABLE S Performing Organization Address City/[facility]/ZIP Co de Phone Number [facility] [place] [address] * APTT (09/18/2024 12:20 AM EDT) [facility] Partial Thromboplastin Time 25 25 - 37 sec 09/18/2024 12:39 AM EDT [facility] Comment: The PTT is NOT appropriate for heparin monitoring. Use the Anti-Xa level for heparin monitoring (HEP UFH) or LMWH monitoring (HEP LMW). A PTT less than 37 seconds generally indicates adequate hemostasis. Blood VENOUS BLOOD SPECIMEN / Unknown IP Care Team Draw / Unknown 09/18/2024 12:20 AM EDT 09/18/2024 12:28 AM EDT Mukund Espinosa MD HEMATOLOGY ORDERABLE S Performing Organization Address City/[facility]/ZIP Co de Phone Number [facility] [place] [address] * (ABNORMAL) Prothrombin Time (09/18/2024 12:20 AM EDT) Prothrombin Time 12.8(H) 9.4 - 12.5 sec 09/18/2024 12:39 AM EDT [facility] International Normalization Ratio 1.1 <=4.9 09/18/2024 12:39 AM EDT [facility] Comment: An INR < [...] 12:20 AM EDT 09/18/2024 12:28 AM EDT Mukund Espinosa MD HEMATOLOGY ORDERABLE S Performing Organization Address City/[facility]/ZIP Co de Phone Number [facility] [place] [address] * POC, GLUCOSE (09/17/2024 11:45 PM EDT) Glucometer, POC 179 65 - 199 mg/dL 09/17/2024 11:45 PM EDT [facility] Comment:Supplemental ranges: <140 mg/dL before meals <180 mg/dL all other times of the day. Blood CAPILLARY BLOOD / Unknown 09/17/2024 11:45 PM EDT 09/17/2024 11:45 PM EDT Mukund Espinosa MD POINT OF CARE TEST O RDERABLES Performing Organization Address City/[facility]/ZIP Co de Phone Number [facility] [place] [address] * POC, GLUCOSE (09/17/2024 8:34 PM EDT) Glucometer, POC 187 65 - 199 mg/dL 09/17/2024 8:34 PM EDT [facility] Comment:Supplemental ranges: <140 mg/dL before meals <180 mg/dL all other times of the day. Blood CAPILLARY BLOOD / Unknown 09/17/2024 8:34 PM EDT 09/17/2024 8:34 PM EDT Mukund Espinosa MD POINT OF CARE TEST O RDERABLES Performing Organization Address [facility] Co de Phone Number [facility] [place] [address] * APTT (09/17/2024 5:23 PM EDT) Partial Thromboplastin Time 26 25 - 37 sec 09/17/2024 5:48 PM EDT [facility] Comment: The PTT is NOT appropriate for heparin monitoring. Use the Anti-Xa level for heparin monitoring (HEP UFH) or LMWH monitoring (HEP LMW). A PTT less than 37 seconds generally indicates adequate hemostasis. Blood VENOUS BLOOD SPECIMEN / Unknown IP Care Team Draw / Unknown 09/17/2024 5:23 PM EDT 09/17/2024 5:31 PM EDT Mukund Espinosa MD HEMATOLOGY ORDERABLE S Performing Organization Address [facility] Co de Phone Number [facility] [place] [address] * Prothrombin Time (09/17/2024 5:23 PM EDT) Prothrombin Time 12.1 9.4 - 12.5 sec 09/17/2024 5:48 PM EDT [facility] International Normalization Ratio 1.1 <=4.9 09/17/2024 5:48 PM EDT [facility] Comment: An INR < [...] 5:23 PM EDT 09/17/2024 5:31 PM EDT Mukund Espinosa MD HEMATOLOGY ORDERABLE S Performing Organization Address City/[facility]/ZIP Co de Phone Number [facility] [place] [place] [address] * POC, GLUCOSE (09/17/2024 4:19 PM EDT) Glucometer, POC 180 65 - 199 mg/dL 09/17/2024 4:20 PM EDT [facility] Comment:Supplemental ranges: <140 mg/dL before meals <180 mg/dL all other times of the day. Blood CAPILLARY BLOOD / Unknown 09/17/2024 4:19 PM EDT 09/17/2024 4:20 PM EDT Mukund Espinosa MD POINT OF CARE TEST O RDERABLES Performing Organization Address City/[facility]/ZIP Co de Phone Number [facility] [place] [address] * XR Chest One View (09/17/2024 2:13 PM EDT) WORKSTATION ID [id number] DH RAD Anatomical Region Laterality Modality Chest [...] who have questions please contact the health healthcare consultant that requested your imaging first. ? Narrative [...] patients who have questions please contactthe health healthcare consultant that requested your imaging first. Liza Love APRN IMG DX ORDERABLES * APTT (09/17/2024 12:36 PM EDT) Partial Thromboplastin Time 25 25 - 37 sec 09/17/2024 1:07 PM EDT [facility] Comment: The PTT is NOT appropriate for heparin monitoring. Use the Anti-Xa level for heparin monitoring (HEP UFH) or LMWH monitoring (HEP LMW). A PTT less than 37 seconds generally indicates adequate hemostasis. Blood VENOUS BLOOD SPECIMEN / Unknown IP Care Team Draw / Unknown 09/17/2024 12:36 PM EDT 09/17/2024 12:48 PM EDT Mukund Espinosa MD HEMATOLOGY ORDERABLE S [facility] [address] * Prothrombin Time (09/17/2024 12:36 PM EDT) Prothrombin Time 12.0 9.4 - 12.5 sec 09/17/2024 1:07 PM EDT [facility] International Normalization Ratio 1.1 <=4.9 09/17/2024 1:07 PM EDT [facility] Comment: An INR < [...] 12:36 PM EDT 09/17/2024 12:48 PM EDT Mukund Espinosa MD HEMATOLOGY ORDERABLE S Performing Organization Address City/[facility]/ZIP Co de Phone Number [facility] [place] [address] * POC, GLUCOSE (09/17/2024 11:26 AM EDT) Glucometer, POC 183 65 - 199 mg/dL 09/17/2024 11:26 AM EDT [facility] Comment:Supplemental ranges: <140 mg/dL before meals <180 mg/dL all other times of the day. Blood CAPILLARY BLOOD / Unknown 09/17/2024 11:26 AM EDT 09/17/2024 11:27 AM EDT Mukund Espinosa MD POINT OF CARE TEST O RDERABLES Performing Organization Address City/[facility]/ZIP Co de Phone Number [facility] [place] [address] * ECHO LMTD W CONTRAST W LMTD SPEC DOPP COLOR DOPP (09/17/2024 8:18 AM EDT) EF 65 HEART[facility] SYSTEM Anatomical Region Laterality Modality Cardiac Other 09/17/2024 7:35 AM EDT Narrative 09/17/2024 11:18 AM EDT ? Version 2 [address] [place] [address] ? Echocardiogram Report Name: LUCERO BRUNO ?Study Date: 09/17/2024 07:35 AMBP: 142/68 mmHg : 1950 ? Height: 152 cm ? Account: [id number] Age: 74 yrs ? Weight: 89 kg Gender: Female ?BSA: 1.8 m2 Ordering Physician: DUANE CAUSEY Referring Physician: ILIANA CARPENTER Performed By: EDWIN Reason For Study: Atrial Fibrillation, Watchman Exam Location: [facility]. Interpretation Summary 1. Normal left ventriclar wall thickness, chamber size and systolic function. The left ventricular ejection fraction is 75% by Ruth's biplane. There are no segmental wall motion abnormalities. No thrombus visualized with Definity. 2. Normal right ventricular size and systolic function. 3. No hemodynamically significant valvular abnormalities. Compared to 05/06/2024: Findings are stable Procedure Limited - [id number]. Image enhancement Definity was used for left [...] Newberry MD - 09/17/2024 Version 2 [address] [place] [id number] Echocardiogram Report Name: LUCERO BURNO Study Date: 407:35 AMBP: 142/68 mmHg : 1950 Height: 152 cm Account: [id number] Age: 74 yrs Weight: 89 kg Gender: Female BSA: 1.8 m2 Ordering Physician: DUANE CAUSEY Referring Physician: ILIANA CARPENTER Performed By: EDWIN Reason For Study: Atrial Fibrillation, Watchman Exam Location: [facility]. Interpretation Summary 1. Normal left ventriclar wall thickness, chamber size and systolicfunction. The left ventricular ejection fraction is 75% by Ruth's biplane. There areno segmental wall motion abnormalities. No thrombus visualized withDefinity. 2. Normal right ventricular size and systolic function. 3. No hemodynamically significant valvular abnormalities. Compared to 05/06/2024: Findings are stable Procedure Limited - [id number]. Image enhancement Definity was used for leftventricular [...] * POC, GLUCOSE (09/17/2024 7:57 AM EDT) [facility] Signature Glucometer, POC 122 65 - 199 mg/dL 09/17/2024 7:58 AM EDT [facility] Comment:Supplemental ranges: <140 mg/dL before meals <180 mg/dL all other times of the day. Blood CAPILLARY BLOOD / Unknown 09/17/2024 7:57 AM EDT 09/17/2024 7:58 AM EDT Mukund Espinosa MD POINT OF CARE TEST O RDERABLES [facility] [place] [address] * APTT (09/17/2024 6:18 AM EDT) Partial Thromboplastin Time 26 25 - 37 sec 09/17/2024 6:39 AM EDT [facility] Comment: The PTT is NOT appropriate for heparin monitoring. Use the Anti-Xa level for heparin monitoring (HEP UFH) or LMWH monitoring (HEP LMW). A PTT less than 37 seconds generally indicates adequate hemostasis. Blood VENOUS BLOOD SPECIMEN / Unknown IP Care Team Draw / Unknown 09/17/2024 6:18 AM EDT 09/17/2024 6:26 AM EDT Mukund Espinosa MD HEMATOLOGY ORDERABLE S Performing Organization Address [facility] Co de Phone Number [facility] [place] [address] * Prothrombin Time (09/17/2024 6:18 AM EDT) Prothrombin Time 11.7 9.4 - 12.5 sec 09/17/2024 6:39 AM EDT [facility] International Normalization Ratio 1.0 <=4.9 09/17/2024 6:39 AM EDT [facility] Comment: An INR < [...] 6:18 AM EDT 09/17/2024 6:26 AM EDT Mukund Espinosa MD HEMATOLOGY ORDERABLE S Performing Organization Address City/[facility] Co de Phone Number [facility] [place] [address] * Prepare Platelets, Apheresis (09/17/2024 6:07 AM EDT) Status Information Transfused [facility] Product Identification [id number] [facility] Unit Number [id number] [facility] Product Code [id number] [facility] Unit Blood Type APOS [facility] Specimen Expiration Date [id number] [facility] Volulme [address] [facility] Issue Date / Time [id number] [facility] Blood 09/16/2024 5:1 2 PM EDT Duane Lazcano MD BLOOD BANK PRODUCT O RDERABLES [facility] [place] [address] * CT Head wo Contrast (Generic) (09/17/2024 4:51 AM EDT) WORKSTATION ID [id number] RAD Anatomical Region Laterality Modality Head Computed [...] who have questions please contact the health healthcare consultant that requested your imaging first. ? --------ORIGINAL [...] who have questions please contact the health healthcare consultant that requested your imaging first. ? Addendum [...] who have questions please contact the health healthcare consultant that requested your imaging first. ? Impressions [...] who have questions please contact the health healthcare consultant that requested your imaging first. ? Narrative [...] patients who have questions please contactthe health healthcare consultant that requested your imaging first. Sushila Espinal MD IMG CT ORDERABLES * POC, GLUCOSE (09/17/2024 3:16 AM EDT) Glucometer, POC 167 65 - 199 mg/dL 09/17/2024 3:16 AM EDT [facility] Comment:Supplemental ranges: <140 mg/dL before meals <180 mg/dL all other times of the day. Blood CAPILLARY BLOOD / Unknown 09/17/2024 3:16 AM EDT 09/17/2024 3:16 AM EDT Mukund Espinosa MD POINT OF CARE TEST O RDERABLES Performing Organization Address City/[facility]/ZIP Co de Phone Number [facility] [address] * Scan, Peripheral Blood (09/17/2024 12:39 AM EDT) RBC Morphology Normal 09/17/2024 1:33 AM EDT [facility] Platelet Estimate Normal Normal 09/17/2024 1:33 AM EDT [facility] Blood VENOUS BLOOD SPECIMEN / Unknown IP Care Team Draw / Unknown 09/17/2024 12:39 AM EDT 09/17/2024 12:54 AM EDT Jah Altman APRN HEMATOLOGY ORDERAB LES Performing Organization Address [facility] Co de Phone Number [facility] [place] [address] * (ABNORMAL) Osmolality (09/17/2024 12:39 AM EDT) Osmolality 309(H) 275 - 295 mOsm/kg 09/17/2024 1:40 AM EDT [facility] Blood VENOUS BLOOD SPECIMEN / Unknown IP Care Team Draw / Unknown 09/17/2024 12:39 AM EDT 09/17/2024 12:54 AM EDT Mukund Espinosa MD CHEMISTRY ORDERABLES [facility] [address] * APTT (09/17/2024 12:39 AM EDT) Partial Thromboplastin Time 27 25 - 37 sec 09/17/2024 1:08 AM EDT [facility] Comment: The PTT is NOT appropriate for heparin monitoring. Use the Anti-Xa level for heparin monitoring (HEP UFH) or LMWH monitoring (HEP LMW). A PTT less than 37 seconds generally indicates adequate hemostasis. Blood VENOUS BLOOD SPECIMEN / Unknown IP Care Team Draw / Unknown 09/17/2024 12:39 AM EDT 09/17/2024 12:54 AM EDT Mukund Espinosa MD HEMATOLOGY ORDERABLE S Performing Organization Address [facility] Co de Phone Number [facility] [place] [address] * Prothrombin Time (09/17/2024 12:39 AM EDT) Prothrombin Time 11.7 9.4 - 12.5 sec 09/17/2024 1:08 AM EDT [facility] International Normalization Ratio 1.0 <=4.9 09/17/2024 1:08 AM EDT [facility] Comment: An INR < [...] 12:39 AM EDT 09/17/2024 12:54 AM EDT Mukund Espinosa MD HEMATOLOGY ORDERABLE S Performing Organization Address City/[facility]/ZIP Co de Phone Number [facility] [place] [address] * Phosphorus (09/17/2024 12:39 AM EDT) Phosphorus 2.8 2.5 - 4.5 mg/dL 09/17/2024 1:26 AM EDT [facility] Blood VENOUS BLOOD SPECIMEN / Unknown IP Care Team Draw / Unknown 09/17/2024 12:39 AM EDT 09/17/2024 12:54 AM EDT Librado Patel MD CHEMISTRY ORDERABLES [facility] [address] * (ABNORMAL) Basic Metabolic Panel (09/17/2024 12:39 AM EDT) Glucose 218(H) 65 - 199 mg/dL 09/17/2024 1:26 AM EDT [facility] Comment:Glucose Concentratio n >=200 mg/dL plus symptoms is consistent with Diabetes Mellitus. Blood Urea Nitrogen 15 8 - 18 mg/dL 09/17/2024 1:26 AM EDT [facility] Creatinine 0.67(L) 0.70 - 1.20 mg/dL 09/17/2024 1:[facility] Sodium 141 135 - 145 mMol/L 09/17/2024 1:26 AM EDT [facility] Potassium 4.4 3.5 - 5.0 mMol/L 09/17/2024 1:26 AM EDT [facility] Chloride 108(H) 98 - 107 mMol/L 09/17/2024 1:26 AM [facility] Carbon Dioxide 21(L) 22 - 31 mMol/L 09/17/2024 1:26 AM EDT [facility] Anion Gap 12 5 - 15 mMol/L 09/17/2024 1:26 AM [facility] Calcium 9.1 8.5 - 10.5 mg/dL 09/17/2024 1:26 AM EDT [facility] [facility] Est Glomerular Filtration Rate - Female 93 mL/min/1. 73 m?? 09/17/2024 1:26 AM EDT [facility] Comment: This patient's estimated [...] AM EDT Librado Patel MD CHEMISTRY ORDERABLES [facility] [place] [address] * Magnesium (09/17/2024 12:39 AM EDT) Magnesium 0.73 0.69 - 1.07 mMol/L 09/17/2024 1:26 AM EDT [facility] Blood VENOUS BLOOD SPECIMEN / Unknown IP Care Team Draw / Unknown 09/17/2024 12:39 AM EDT 09/17/2024 12:54 AM EDT Librado Patel MD CHEMISTRY ORDERABLES [facility] [place] [place] [address] * (ABNORMAL) CBC (with Diff) (09/17/2024 12:39 AM EDT) White Blood Cell 23.60(H) 4.00 - 9.50 x10(3)/mc L 09/17/2024 1:33 AM EDT [facility] Red Blood Cell 4.29 4.00 - 5.21 x10(6)/mc L 09/17/2024 1:33 AM [facility] Hemoglobin 12.9 11.7 - 15.5 g/dL 09/17/2024 1:33 AM [facility] Hematocrit 38.5 35.7 - 45.8 % 09/17/2024 1:33 AM [facility] Mean Cell Volume 89.7 82.6 - 94.4 fL 09/17/2024 1:33 AM [facility] Mean Cell Hemoglobin 30.1 27.1 - 32.0 pg 09/17/2024 1:33 AM [facility] Mean Cell Hemoglobin Concentration 33.5 31.7 - 35.0 g/dL 09/17/2024 1:33 AM [facility] Platelet 327 145 - 357 x10(3)/mc L 09/17/2024 1:33 AM [facility] Mean Platelet Volume 10.2 7.6 - 12.9 fL 09/17/2024 1:33 AM [facility] RDW Standard Deviation 40.6 37.0 - 46.0 fL 09/17/2024 1:33 AM [facility] RDW coefficient of variation 12.4 11.5 - 14.1 % 09/17/2024 1:33 AM [facility] NRBC% auto 0.0 % 09/17/2024 1:33 AM [facility] NRBC Absolute <0.01 <0.01 x10(3)/mc L 09/17/2024 1:33 AM [facility] Neutrophil % 90.5 % 09/17/2024 1:33 AM [facility] Comment:This is an appended report. These results have been appended to a previously preliminary verified report. Neutrophil Absolute (ANC) - Automated 21.36(H) 1.70 - 6.10 x10(3)/mc L 09/17/2024 1:33 AM [facility] Comment:This is an appended report. These results have been appended to a previously preliminary verified report. Lymph % 3.5 % 09/17/2024 1:33 AM [facility] Comment:This is an appended report. These results have been appended to a previously preliminary verified report. Lymph Absolute 0.83(L) 0.90 - 3.20 x10(3)/mc L 09/17/2024 1:33 AM [facility] Comment:This is an appended report. These results have been appended to a previously preliminary verified report. Monocyte % 5.2 % 09/17/2024 1:33 AM [facility] Comment:This is an appended report. These results have been appended to a previously preliminary verified report. Monocyte Absolute 1.22(H) 0.30 - 0.90 x10(3)/mc L 09/17/2024 1:33 AM [facility] Comment:This is an appended report. These results have been appended to a previously preliminary verified report. Eos % 0.0 % 09/17/2024 1:33 AM [facility] Comment:This is an appended report. These results have been appended to a previously preliminary verified report. Eos Absolute <0.04 0.00 - 0.40 x10(3)/mc L 09/17/2024 1:33 AM [facility] Comment:This is an appended report. These results have been appended to a previously preliminary verified report. Basophil % 0.2 % 09/17/2024 1:33 AM [facility] Comment:This is an appended report. These results have been appended to a previously preliminary verified report. Baso Absolute 0.04 0.00 - 0.10 x10(3)/mc L 09/17/2024 1:33 AM [facility] Comment:This is an appended report. These results have been appended to a previously preliminary verified report. Immature Gran % 0.6 % 1:33 AM EDT [facility] Comment:This is an appended report. These results have been appended to a previously preliminary verified report. Immature Gran Absolute 0.15(H) 0.00 - 0.04 x10(3)/mc L 09/17/2024 1:33 AM EDT [facility] Comment:This is an appended report. These results have been appended to a previously preliminary verified report. Blood VENOUS BLOOD SPECIMEN / Unknown IP Care Team Draw / Unknown 09/17/2024 12:39 AM EDT 09/17/2024 12:54 AM EDT Librado Patel MD HEMATOLOGY ORDERABLE S Performing Organization Address City/[facility]/ZIP Co de Phone Number [facility] [place] [address] * (ABNORMAL) Glucose (09/17/2024 12:39 AM EDT) Glucose 218(H) 65 - 199 mg/dL 09/17/2024 1:26 AM EDT [facility] Comment:Glucose Concentratio n >=200 mg/dL plus symptoms is consistent with Diabetes Mellitus. Blood VENOUS BLOOD SPECIMEN / Unknown IP Care Team Draw / Unknown 09/17/2024 12:39 AM EDT 09/17/2024 12:54 AM EDT Jah Altman [employer] CHEMISTRY ORDERABL ES [facility] [place] [address] * Triglyceride (09/17/2024 12:39 AM EDT) Triglyceride 147 mg/dL 09/17/2024 1:26 AM EDT [facility] Comment: Normal: <150 mg/dL Borderline High: 150-199 mg/dL High: 200-499 mg/dL Very High: > or =500 mg/dL Blood VENOUS BLOOD SPECIMEN / Unknown IP Care Team Draw / Unknown 09/17/2024 12:39 AM EDT 09/17/2024 12:54 AM EDT Jah Altman [employer] CHEMISTRY ORDERABL ES [facility] [place] [address] * HDL/Cholesterol Profile (09/17/2024 12:39 AM EDT) Cholesterol, Total 203 mg/dL 09/17/2024 1:26 AM EDT [facility] Comment: Desirable: < 200 mg/dL Borderline High: 200 - 239 mg/dL High: > or = 240 mg/dL HDL Cholesterol 45 mg/dL 1:26 AM EDT [facility] Comment:Female: High Risk: < 50 mg/dL Non-HDL Cholesterol 158 mg/dL 09/17/2024 1:26 AM EDT [facility] Comment: Desirable: <130 mg/dL Above Desirable: 130-159 mg/dL Borderline High: 160-189 mg/dL High: 190-219 mg/dL Very High: > or = 220 mg/dL Blood VENOUS BLOOD SPECIMEN / Unknown IP Care Team Draw / Unknown 09/17/2024 12:39 AM EDT 09/17/2024 12:54 AM EDT Narrative [facility] - 09/17/2024 1:26 AM [...] ACC/AHA Guidelines (most recently Jackie main al. [facility] 08/27/22): * For individuals with [...] disease) Jah Altman APRN CHEMISTRY ORDERABL ES [facility] [place] [place] [address] * LDL Cholesterol, Direct (09/17/2024 12:39 AM EDT) [facility] LDL Cholesterol, Direct 133 mg/dL 09/17/2024 1:26 AM EDT [facility] Comment: Desirable: <100 mg/dL [...] EDT Jah Altman APRN CHEMISTRY ORDERABL ES [facility] [place] [address] * (ABNORMAL) Hemoglobin A1c (09/17/2024 12:39 AM EDT) [facility] Hemoglobin A1c 6.1(H) 4.3 - 5.6 % 09/17/2024 1:26 AM EDT [facility] Comment: Per ADA guidelines, [...] red blood cell turnover may not be financial services representative of glycemic control. Reference Interval: 4.3 - 5.6% 5.7 - 6.4%: Consistent with prediabetes >=6.5%: Consistent with diagnosis of diabetes mellitus Estimated Average Glucose 09/17/2024 1:26 AM EDT [facility] Comment:Estimated Average Gl ucose not appropriate for patients over 70 years of age. Blood VENOUS BLOOD SPECIMEN / Unknown IP Care Team Draw / Unknown 09/17/2024 12:39 AM EDT 09/17/2024 12:54 AM EDT Narrative [facility] - 09/17/2024 1:26 AM EDT Estimated average glucose (eAG) is calculated from the equation described in: Amari MOSLEY, Wm J, Tyree R, et al. ??Translating the A1C assay into estimated average glucose values. ??Diabetes Care 2008:31(8):5748-5191. Additional resources are available on the ADA website (diabetes.org). Jah Altman RUBBER THREAD SPOOLER CHEMISTRY ORDERABL ES [facility] [place] [address] * CT Venogram Brain (09/16/2024 11:21 PM EDT) [employer] WORKSTATION ID [id number] RAD Anatomical Region Laterality Modality Head Computed [...] who have questions please contact the health healthcare consultant that requested your imaging first. ? Narrative [...] patients who have questions please contactthe health healthcare consultant that requested your imaging first. Mukund Espinosa MD IMG CT ORDERABLES * CT Head wo Contrast (Generic) (09/16/2024 11:21 PM EDT) [employer] Signature WORKSTATION ID [id number] RAD Anatomical Region Laterality Modality Head Computed [...] who have questions please contact the health healthcare consultant that requested your imaging first. ? Narrative [...] patients who have questions please contactthe health healthcare consultant that requested your imaging first. Mukund Espinosa MD IMG CT ORDERABLES * XR Abdomen 1 view (Generic) (09/16/2024 11:00 PM EDT) [employer] Signature WORKSTATION ID [id number] RAD Anatomical Region Laterality Modality Abdomen N/A [...] who have questions please contact the health healthcare consultant that requested your imaging first. ? Narrative [...] patients who have questions please contactthe health healthcare consultant that requested your imaging first. Mukund Espinosa MD IMG DX ORDERABLES * XR Chest One View (09/16/2024 11:00 PM EDT) WORKSTATION ID [id number] RAD Anatomical Region Laterality Modality Chest N/A [...] who have questions please contact the health healthcare consultant that requested your imaging first. ? Narrative [...] patients who have questions please contactthe health healthcare consultant that requested your imaging first. Jah Altman APRN IMG DX ORDERABLES * Prepare RBC (09/16/2024 10:50 PM EDT) Status Information Returned [facility] Product Identification RBC [facility] Unit Number [id number] [facility] Product Code [id number] [facility] Unit Blood Type OPOS [facility] Specimen Expiration Date [facility] Volulme 350 [facility] Issue Date / Time [facility] Status Information Returned [facility] Product Identification RBC [facility] Unit Number [id number] [facility] Product [facility] [id number] [facility] Unit Blood Type OPOS [facility] Specimen Expiration Date [facility] Volulme 350 [facility] Issue Date / Time [facility] Status Information Returned [facility] Product Identification RBC [facility] Unit Number [id number] [facility] Product [facility] [id number] [facility] Unit Blood Type OPOS [facility] Specimen Expiration Date [facility] Volulme 350 [facility] Issue Date / Time [facility] Blood 09/16/2024 5:3 6 PM EDT Duane Lazcano MD BLOOD BANK PRODUCT O RDERABLES [facility] [place] [address] * POC, GLUCOSE (09/16/2024 10:05 PM EDT) Glucometer, POC 170 65 - 199 mg/dL 09/16/2024 10:06 PM EDT [facility] Comment:Supplemental ranges: <140 mg/dL before meals <180 mg/dL all other times of the day. Blood CAPILLARY BLOOD / Unknown 09/16/2024 10:05 PM EDT 09/16/2024 10:06 PM EDT Mukund Espinosa MD POINT OF CARE TEST O RDERABLES [facility] [place] [address] * (ABNORMAL) Blood Gas, Arterial POC (09/16/2024 8:22 PM EDT) pH, Arterial 7.33(L) 7.35 - 7.45 09/17/2024 8:50 AM EDT [facility] PCO2, Arterial 43 35 - 45 mmHg 09/17/2024 8:50 AM EDT [facility] PO2, Arterial 158(H) 85 - 104 mmHg 09/17/2024 8:50 AM EDT [facility] Bicarbonate, Arterial 22.1 20.0 - 26.0 mmol/L 09/17[facility]2024 [facility] Base Excess, Arterial -3.8(L) -3.0 - 3.0 mmol/L 09/17/2024 8:[facility] Hemoglobin, Arterial 13.7 11.7 - 15.5 g/dL 09/17/2024 8:50 AM [facility] Oxyhemoglobin, Arterial 98.0(H) 94.0 - 97.0 % 09/17/2024 8:50 AM [facility] Carboxyhemoglobin , Arterial 0.5 % 09/17/2024 8:[facility] Comment: Nonsmokers: 0.5-1.5% COHB ?? Smokers: Variable ??but usually less than 10% ?? Toxic: 20-30% COHB ?? Lethal: Greater than 60% COHB Methemoglobin, Arterial 0.3 <=1.5 % 09/17/2024 8:50 AM EDT [facility] Sodium, Arterial 141 135 - 145 mmol/L 09/17/2024 8:[facility] Potassium, Arterial 4.1 3.5 - 5.0 mmol/L 09/17/2024 8:50 AM EDT [facility] Chloride, Arterial 104 98 - 107 mmol/L 09/17/2024 8:50 AM EDT [facility] Lactate, Arterial 4.0(HHH) 0.5 - 2.2 mmol/L 09/17/2024 8:50 AM EDT [facility] IONIZED CALCIUM, ARTERIAL 1.18 1.15 - 1.33 mmol/L 09/17/2024 8:50 AM EDT [facility] Glucose, Arterial 165 65 - 199 mg/dL 09/17/2024 8:50 AM EDT [facility] Comment:Glucose Concentratio n >=200 mg/dL plus symptoms is consistent with Diabetes Mellitus. Blood ARTERIAL BLOOD / Unknown 09/16/2024 8:22 PM EDT 09/17/2024 8:50 AM EDT Mukund Espinosa MD POINT OF CARE TEST O RDERABLES Performing Organization Address City/State/[facility] Co de Phone Number [facility] [address] * (ABNORMAL) Surgical Pathology (09/16/2024 7:20 PM EDT) Case Report Surgical Pathology Report ? Case: [id number] ? Authorizing Provider: ??Sushila Espinal MD ? Collected: ? 09/16/20241919 ? Ordering Location: ? Main Operating Room [place] ?? Received: ?09/16/20242123 ? [facility] ? [facility] ? Pathologist: ? Juanito Frye MD ? Specimen: ?Brain, Right, Right-Sided Infraparenchymal Hemorrhage ? 09/29/2024 12:07 PM [facility] Final Diagnosis A. Right-sided Intraparenchymal hemorrhage,excision: Blood clot, consistent with intraparenchymal hematoma. Cerebral amyloid angiopathy. 09/29/2024 12:07 PM [facility] Discussion Hematoxylin and eosin-stained sections of the specimen show sheets of erythrocytes with admixed leukocytes and fibrin strands. There is no evidence of membrane formation. Small fragments of [employer]EL[employer] parenchyma and blood vessels are present in the sample. The blood vessels contain eosinophilic material in their thurman. 09/29/2024 12:07 PM [facility] Additional Studies Block Antibody Result (Positive/Negative) A1,A2 Beta-amyloid Positive. 09/29/2024 12:07 PM [facility] Disclaimer(s) Formalin-fixed, paraffin-embedded tissue sections are [...] and other diagnostic tests. 09/29/2024 12:07 PM [facility] Clinical Information A. Brain, Right, Right-Sided Infraparenchymal Hemorrhage *Other - as specified in Clinical Information Dx: R [facility] OR 10 ; [id number] 09/29/2024 12:07 PM [facility] Gross Description A. Brain, Right, Right-Sided Infraparenchymal Hemorrhage. A - Labeled/Fixative: Right sided intraparenchymal hemorrhage, fresh. Quantity/Size: Multiple, 9 x 7 x 4 cm. Tissue Description: Aggregate of blood clot with scant interspersed white tissue. Sections/Processing: Photographic Printer sections in 2 cassettes labeled A1-A2. sns 09/29/2024 12:07 PM [facility] Result Note THIS RESULT REQUIRES PHYSICIAN/JESSI FOLLOW UP(A) 09/29/2024 12:07 PM [facility] Tissue BRAIN STRUCTURE / Unknown 09/16/2024 7:20 PM EDT 09/16/2024 9:24 PM EDT Comment:Dx: Mary [facility] OR 10 ; 3-2050 Sushila Espinal MD PATHOLOGY/CYTOLOGY O RDERABLES [facility] [place] [address] * (ABNORMAL) Blood Gas, Arterial POC (09/16/2024 6:23 PM EDT) pH, Arterial 7.42 7.35 - 7.45 09/17/2024 8:49 AM EDT [facility] PCO2, Arterial 31(L) 35 - 45 mmHg 09/17/2024 8:49 AM EDT [facility] PO2, Arterial 121(H) 85 - 104 mmHg 09/17/2024 8:49 AM EDT [facility] Bicarbonate, Arterial 19.6(L) 20.0 - 26.0 mmol/L 09/17/2024 8:49 AM [facility] Base Excess, Arterial -4.9(L) -3.0 - 3.0 mmol/L 09/17/2024 8:49 AM [facility] Hemoglobin, Arterial 13.4 11.7 - 15.5 g/dL 09/17/2024 8:49 AM [facility] Oxyhemoglobin, Arterial 97.7(H) 94.0 - 97.0 % 09/17/2024 8:49 AM [facility] Carboxyhemoglobin , Arterial 0.2 % 09/17/2024 8:49 AM [facility] Comment: Nonsmokers: 0.5-1.5% COHB ?? Smokers: Variable ??but usually less than 10% ?? Toxic: 20-30% COHB ?? Lethal: Greater than 60% COHB Methemoglobin, Arterial 0.2 <=1.5 % 09/17/2024 8:49 AM [facility] Sodium, Arterial 138 135 - 145 mmol/L 09/17/2024 8:49 AM [facility] Potassium, Arterial 4.2 3.5 - 5.0 mmol/L 09/17/2024 8:49 AM [facility] Chloride, Arterial 105 98 - 107 mmol/L 09/17/2024 8:49 AM [facility] Lactate, Arterial 2.8(H) 0.5 - 2.2 mmol/L 09/17/2024 8:49 AM [facility] IONIZED CALCIUM, ARTERIAL 1.11(L) 1.15 - 1.33 mmol/L 09/17/2024 8:49 AM [facility] Glucose, Arterial 169 65 - 199 mg/dL 09/17/2024 8:49 AM [facility] Comment:Glucose Concentratio n >=200 mg/dL plus symptoms is consistent with Diabetes Mellitus. Blood ARTERIAL BLOOD / Unknown 09/16/2024 6:23 PM EDT 09/17/2024 8:49 AM EDT Mukund Espinosa MD POINT OF CARE TEST O RDERABLES [facility] [place] [address] * (ABNORMAL) Blood Gas, Arterial POC (09/16/2024 5:49 PM EDT) pH, Arterial 7.34(L) 7.35 - 7.45 09/17/2024 8:49 AM EDT [facility] PCO2, Arterial 35 35 - 45 mmHg 09/17/2024 8:49 AM EDT [facility] PO2, Arterial 181(H) 85 - 104 mmHg 09/17/2024 8:49 AM EDT [facility] Bicarbonate, Arterial 18.5(L) 20.0 - 26.0 mmol/L 09/17/2024 8:49 AM EDT [facility] Base Excess, Arterial -7.3(L) -3.0 - 3.0 mmol/L 09/17/2024 8:49 AM EDT [facility] Hemoglobin, Arterial 12.8 11.7 - 15.5 g/dL 09/17/2024 8:49 AM EDT [facility] Oxyhemoglobin, Arterial 98.1(H) 94.0 - 97.0 % 09/17/2024 8:49 AM EDT [facility] Carboxyhemoglobin , Arterial 0.3 % 09/17/2024 8:49 AM EDT [facility] Comment: Nonsmokers: 0.5-1.5% COHB ?? Smokers: Variable ??but usually less than 10% ?? Toxic: 20-30% COHB ?? Lethal: Greater than 60% COHB Methemoglobin, Arterial 0.5 <=1.5 % 09/17/2024 8:49 AM EDT [facility] Sodium, Arterial 134(L) 135 - 145 mmol/L 09/17/2024 8:49 AM EDT [facility] Potassium, Arterial 4.1 3.5 - 5.0 mmol/L 09/17/2024 8:49 AM EDT [facility] Chloride, Arterial 103 98 - 107 mmol/L 09/17/2024 8:49 AM EDT [facility] Lactate, Arterial 1.9 0.5 - 2.2 mmol/L 09/17/2024 8:49 AM EDT [facility] IONIZED CALCIUM, ARTERIAL 1.07(L) 1.15 - 1.33 mmol/L 09/17/2024 8:49 AM EDT [facility] Glucose, Arterial 178 65 - 199 mg/dL 09/17/2024 8:49 AM EDT [facility] Comment:Glucose Concentratio n >=200 mg/dL plus symptoms is consistent with Diabetes Mellitus. Blood ARTERIAL BLOOD / Unknown 09/16/2024 5:49 PM EDT 09/17/2024 8:49 AM EDT Duane Lazcano MD POINT OF CARE TEST O RDERABLES [facility] [address] * CT Head wo Contrast (Generic) (09/16/2024 5:26 PM EDT) [employer] WORKSTATION ID [id number] RAD Anatomical Region Laterality Modality Head [...] who have questions please contact the health healthcare consultant that requested your imaging first. ? Narrative [...] patients who have questions please contactthe health healthcare consultant that requested your imaging first. Duane Lazcano MD IMG CT ORDERABLES * Triglyceride (09/16/2024 5:07 PM EDT) [facility] Triglyceride 174 mg/dL 09/16/2024 10:29 PM EDT [facility] Comment: Normal: <150 mg/dL Borderline High: 150-199 mg/dL High: 200-499 mg/dL Very High: > or =500 mg/dL Blood VENOUS BLOOD SPECIMEN / Unknown 09/16/2024 5:07 PM EDT 09/16/2024 5:31 PM EDT Jah Altman RUBBER THREAD SPOOLER CHEMISTRY ORDERABL ES [facility] [place] [address] * Green Tube HOLD (09/16/2024 5:07 PM EDT) [facility] Green Hold Hold for Add-on 09/16/2024 7:01 PM EDT [facility] Blood VENOUS BLOOD SPECIMEN / Unknown 09/16/2024 5:07 PM EDT 09/16/2024 5:31 PM EDT Duane Lazcano MD CHEMISTRY ORDERABLES Performing Organization Address [facility] Co de Phone Number [facility] [place] [address] * APTT (09/16/2024 5:07 PM EDT) Partial Thromboplastin Time 26 25 - 37 sec 09/16/2024 5:41 PM EDT [facility] Comment: The PTT is [...] MD HEMATOLOGY ORDERABLE S Performing Organization Address [facility] Co de Phone Number [facility] [place] [address] * Prothrombin Time (09/16/2024 5:07 PM EDT) Prothrombin Time 11.9 9.4 - 12.5 sec 09/16/2024 5:41 PM EDT [facility] International Normalization Ratio 1.0 <=4.9 09/16/2024 5:41 PM EDT [facility] Comment: An INR < [...] EDT Duane Lazcano MD HEMATOLOGY ORDERABLE S [facility] [address] * (ABNORMAL) CBC (with Diff) (09/16/2024 5:07 PM EDT) White Blood Cell 16.82(H) 4.00 - 9.50 x10(3)/mc L 09/16/2024 5:32 PM EDT [facility] Red Blood Cell 4.72 4.00 - 5.21 x10(6)/mc L 09/16/2024 5:32 PM EDT [facility] Hemoglobin 14.2 11.7 - 15.5 g/dL 09/16/2024 5:32 PM EDT [facility] Hematocrit 42.8 35.7 - 45.8 % 09/16/2024 5:32 PM EDT [facility] Mean Cell Volume 90.7 82.6 - 94.4 fL 09/16/2024 5:32 PM EDT [facility] Mean Cell Hemoglobin 30.1 27.1 - 32.0 pg 09/16/2024 5:32 PM EDT [facility] Mean Cell Hemoglobin Concentration 33.2 31.7 - 35.0 g/dL 09/16/2024 5:32 PM EDT [facility] Platelet 269 145 - 357 x10(3)/mc L 09/16/2024 5:32 PM EDT [facility] Mean Platelet Volume 10.3 7.6 - 12.9 fL 09/16/2024 5:32 PM EDT [facility] [facility] RDW Standard Deviation 40.4 37.0 - 46.0 fL 09/16/2024 5:32 PM EDT [facility] RDW coefficient of variation 12.3 11.5 - 14.1 % 09/16/2024 5:32 PM [facility] NRBC% auto 0.0 % 09/16/2024 5:32 PM [facility] NRBC Absolute <0.01 <0.01 x10(3)/mc L 09/16/2024 5:32 PM [facility] Neutrophil % 79.2 % 09/16/2024 5:32 PM [facility] Neutrophil Absolute (ANC) - Automated 13.33(H) 1.70 - 6.10 x10(3)/mc L 09/16/2024 5:32 PM [facility] Lymph % 15.0 % 09/16/2024 5:32 PM [facility] Lymph Absolute 2.52 0.90 - 3.20 x10(3)/mc L 09/16/2024 5:32 PM [facility] Monocyte % 4.0 % 09/16/2024 5:32 PM [facility] Monocyte Absolute 0.67 0.30 - 0.90 x10(3)/mc L 09/16/2024 5:32 PM [facility] Eos % 1.1 % 09/16/2024 5:32 PM [facility] Eos Absolute 0.18 0.00 - 0.40 x10(3)/mc L 09/16/2024 5:32 PM [facility] Basophil % 0.2 % 09/16/2024 5:32 PM [facility] Baso Absolute <0.04 0.00 - 0.10 x10(3)/mc L 09/16/2024 5:32 PM [facility] Immature Gran % 0.5 % 5:32 PM [facility] Immature Gran Absolute 0.09(H) 0.00 - 0.04 x10(3)/mc L 09/16/2024 5:32 PM [facility] Blood VENOUS BLOOD SPECIMEN / Unknown IP Care Team Draw / Unknown 09/16/2024 5:07 PM EDT 09/16/2024 5:23 PM EDT Duane Lazcano MD HEMATOLOGY ORDERABLE S Performing Organization Address [facility]/ZIP Co de Phone Number [facility] [place] [address] * EKG 12 Lead (09/16/2024 3:33 PM EDT) Ventricular rate 75 BPM MUSE SYSTEM Atrial Rate 75 BPM MUSE SYSTEM P-R Interval 164 ms MUSE SYSTEM QRS Duration 72 ms MUSE SYSTEM Q-T Interval 400 ms MUSE SYSTEM QTC Calculated (Bezet) 446 ms MUSE SYSTEM Calculated P [place] 36 degrees MUSE SYSTEM Calculated R [place] -17 degrees MUSE SYSTEM Calculated T [place] 28 degrees MUSE SYSTEM INTERPRETATION Normal sinus rhythm Normal ECG When compared with ECG of 16-SEP-2024 13:08, No significant change was found Confirmed by MD Bahman, Octavio Mosquera ([id number]) on 09/19/2024 9:11:06 AM MUSE SYSTEM 09/16/2024 3:33 PM EDT 09/19/2024 9:11 AM EDT Duane Lazcano MD ECG ORDERABLES Performing Organization Address City/[facility]/ZIP Co de Phone Number MUSE SYSTEM * CARDIAC CATHETERIZATION (09/16/2024 3:16 PM EDT) Anatomical Region Laterality Modality Other Narrative 09/16/2024 6:52 PM EDT ?[facility] ? Cardiac Catheterization/Intervention Report ? Patient Name: Damion Lucero Henriquez. ? Procedure Date: 09/16/2024 ? A #: [id number] ? Primary Physician: Causey, Duane V ? Case #: [id number] ? File Name: [id number] ? Catheterization Order Number: [id number] ? [facility] ? Final Report [place], [place] ? Patient Name: ? [place] J. Damion ? ID#: ?[id number] ? : ?1950 ? Procedure Date: ? September 16, 2024 ? Case #: ? [id number] ? Room: ? 6 ? Case Physicians: ?Duane Causey M.D. ? Start: ?14:12 ?Tl Gamino M.D. ?Admission: ??09/16/2024 ?Dr Chicas, M.D. ?Fellow: ? Amari Colbert P.A. ? Referring [...] procedure was Elective. The indication for ?the photonic laboratory technician visit is cardiac arrhythmia. Chest pain symptom assessment ?was: Asymptomatic. ? Technique: ?A 17Fr sheath was inserted in the right femoral vein utilizing the ?Seldinger technique. The left atrium was injected utilizing a 6Fr PIGTAIL ?catheter. Left atrial pressure was performed with a 6Fr ANGLED PIGTAIL ?catheter. Transseptal puncture was performed with an 8.5Fr [employer] RF ?Needle. 7,000 units of heparin were [...] for atrial fibrillation. ?The patient had a [id number] score of 4, a HAS-BLED score of [...] A Watchman ?FLX Pro 27 mm (s/l/n [id number]) was prepared and deployed using standard ?technique. [...] to nor was it given in the ?photonic laboratory technician. ?Recommended anti-platelet/anti-thrombotic regimen: ?Continue aspirin 81 mg daily for indefinitely. ?These recommendations are made at the time of the intervention. Patient ?and provider preferences or a changing clinical situation may require ?modification of this regimen. Consult [facility] for ?questions. ? Conclusions: ?* [...] intubation-non cath physician and ?anesthesia. ? Duane V Causey, M.D. ? Electronically Signed by: Duane Causey M.D. ? Report Finalized: 09/16/2024 ??18:48 ? Report Last Ammended: 09/20/2024 ??11:16 ? Procedure Note Duane Causey MD - 09/20/2024 [facility] Cardiac Catheterization/Intervention Report Patient Name: Lucero Bruno Procedure Date: 09/16/2024 A #: [id number] Primary Physician: Duane Causey V Case #: [id number] File Name: [id number] Catheterization Order Number: [id number] [facility] FinalReport [place], [place] Patient Name: Lucero Bruno ID#:[id number] :1950 Procedure Date: September 16, 2024 Case [...] was designated as ASA Class III. The [facility] clinicalfrailty scale is 5: Mildly Frail. Diagnostic Tests: Prior Coronary Angiography: LV ejection fraction within 6 months is 75%. Electrocardiography: EKG was assessed by ECG. Medications Prior to Procedure: Aspirin and Calcium Channel Blocking Agent. Indications for Diagnostic Cath: The priority of the diagnostic procedure was Elective. Theindication for the photonic laboratory technician visit is cardiac arrhythmia. Chest pain symptomassessment [...] performed for atrialfibrillation. The patient had a [id number] score of 4, a HAS-BLED score of [...] echo guidance using an 8.5 Fr VersaCross Vstrzfxdvhp45 degree introducer and VersaCross pigtail RF wire needle. The left atrial occlusion procedure was performed with fluoroscopyand MONICA guidance. An angled pigtail was placed in the left atrialappendage and exchanged for a 17 Fr Watchman TruSteer delivery sheath. AWatchman FLX Pro 27 mm (s/l/n [id number]) was prepared and deployed usingstandard technique. The [...] prior to nor was it given inthe photonic laboratory technician. Recommended anti-platelet/anti-thrombotic regimen: Continue aspirin 81 mg daily for indefinitely. These recommendations are made at the time of the intervention.Patient and provider preferences or a changing clinical situation mayrequire modification of this regimen. Consult [facility] Cardiologyfor questions. Conclusions: * Successful left [...] PM EDT ? Transesophageal Echocardiogram Report Name: DAMIONLUCERO ? Study Date: 09/16/2024 01:44 PM ?Patient Location: ^CA06^A : 1950 ? Account: [id number] Age: 74 yrs Gender: Female Ordering Physician: EIR STOVALL Referring Physician: Duane Causey Interpretation Summary Study performed for guidance of Watchman. PRE: No left atrial thrombus. The appendage orifice measured 21 x 16 mm by 3D assessmnent. No PFO. Lipomatous septal hypertrophy. Pericardial fat pad with no pericardial effusion. POST: Watchman well seated without manasa-device leak. See images for compression measurements. No change in appearance of pericardium. Single atrial septostomy with hlaf-uk-hwlao flow. See report for additional findings. Procedure [...] is a single atrial septostomy site present. Dysf-nt-zvauw flow is present. The appendage orifice measured [...] - 09/16/2024 Transesophageal Echocardiogram Report Name: DAMIONLUCERO Study Date: 09/16/2024 01:44 PM Patient Location: ^CA06^A : 1950 Account:[id number] Age: 74 yrs Gender: Female Ordering Physician: [...] in appearance of pericardium. Single atrialseptostomy with mtcz-ft-vksrm flow. See report for additional findings. Procedure [...] is a single atrial septostomy site present. Utct-ty-agxxr flow is present.The appendage orifice measured 21 [...] Visit Diagnoses Diagnosis Atrial fibrillation, unspecified type Presence of Watchman left atrial appendage closure device Right-sided nontraumatic intracerebral hemorrhage, unspecified cerebral location Severe protein-calorie malnutrition Other severe protein-calorie malnutrition S/P craniotomy Other postprocedural status Atrial fibrillation, unspecified type documented in this [...] Contrast, Routine iohexoL (Omnipaque) (350 mg/mL) solution PRN, Starting on Fri09/16/24 at 1459, Until Fri09/16/24 at 1530, Intra-Operative (Intra-Procedure), Routine Given 09/16/2024 2:59 PM EDT 77 mLs ipratropium-albuteroL (Duoneb) 0.5 mg-3 mg(2.5 mg [...] Bhat RN) 0903 (Given - Provider: Latosha Winston, RN) amLODIPine (Norvasc) tablet 5 mg 5 mg, Oral, DAILY, First dose (after last modification) on Fri10/12/24 at 0900, Until Discontinued, Hold if SBP <100mmHg or MAP <65mmHg, Routine 0811 (Given - Provider: Lorin Morejon, TRACY) ceFEPime (Maxipime) 1g vial attach to sodium chloride 0.9% 100 mL Mini-Bag Plus (CANCELED) 1 g, Intravenous, EVERY 8 HOURS, First dose on Fri10/09/24 at 1615, Until Discontinued, Administer over 3 [...] RN) 0904 (New Bag - Provider: Latosha Winston RN)1004 (Stopped - Provider: Latosha Winston RN)1300 (New Bag - Provider: Latosha Winston, TRACY)1400 [...] SCHEDULED, First dose (after last modification) on 10/04/24 at 1800, Until Discontinued, Hold for HR [...] Latosha Winston RN) 0000 (Given - Provider: Kealyn Acuña RN)0526 (Given - Provider: Kaelyn Acuña [...] Bhat, TRACY)1200 (Given - Provider: Luz Bhat, TRACY)1600 (Given - Provider: Luz Bhat, TRACY)2000 (Given - Provider: Kaelyn Acuña RN) 0000 (Given - Provider: Kaelyn Acuña RN)0400 (Not Given - Provider: Kaelyn Acuña RN - Reason: See comment - Comment: Asleep)0800 (Given - Provider: Latosha L Winston, RN)1200 (Given - Provider: Lorin Morejon RN)1600 [...] - Provider: Latosha Winston RN - Comment: [phone] (Given - Provider: Kealyn Acuña RN) 0203 (Given - Provider: Kaelyn [...] Bhat RN)1726 (Given - Provider: Luz Bhat RN)2039 (Given - Provider: Kaelyn Acuña RN)2347 (Given [...] Bhat RN) 0903 (Given - Provider: Latosha Winston, RN) 903 (Given - Provider: Lorin Morejon, TRACY) protein powder 2 Scoop, Per G Tube, 3 TIMES DAILY, First dose on Fri10/07/24 at 1500, Until Discontinued, Routine 0900 (Given - Provider: Luz Bhat RN)1500 (Given - Provider: Luz Bhat RN)2038 (Given - Provider: Kaelyn Acuña, TRACY) 0900 (Given - Provider: Latosha Winston, RN)1500 (Given - Provider: Latosha Winston, TRACY)2038 (Given [...] Urinary Tract/Pyelonephritis 903 (Given - Provider: Lorin Morejon, TRACY) traZODone (Desyrel) tablet 50 mg (CANCELED) 50 mg, Oral, NIGHTLY, First dose on Fri10/11/24 at 0245, Until Discontinued, Routine 236 (Given - Provider: Kaelyn Acuña, TRACY) traZODone (Desyrel) tablet 50 mg 50 mg, [...] other PRN pain medications are ordered., Routine 2333 (Given - Provider: Kaelyn Acuña RN) bisacodyL [...] Oral, 2 TIMES DAILY PRN, Starting on 10/11/24 at 1506, Until Fri10/12/24 at 1555, Constipation, [...] Oral, EVERY 4 HOURS PRN, Starting on 10/11/24 at 1507, Until Tu10/12/24 at 1555, hypokalemia, Administer for serum potassium [...] documented as of this encounter Care Teams Plater Helper Relationship Specialty Start Date End Date Leila Manjarrez [address] [place] [address] PCP - General Family Medicine 09/09/24 documented as of this encounter
--- OUTSIDE RECORDS SUMMARY | 2024-10-20 17:31 | XMS_ITS | Encounter Summary ---
Author Organization [facility] Address [facility] [place] [address] Care Team Providers Care Physical Design Engineer Name Role Phone Dorita Zimmerman RICHARD Primary Care Provider [phone] Encounter Details Date Type Department Care Team (Late st Contact Info) Description 05/05/[address] [place] [phone] Crys Suarez MD [facility] [place] [address] Social History Tobacco Use Types Packs/Day Years Used Date Smoking Tobacco: Former Cigarettes 1 973 - 2002 Smokeless Tobacco: Never Alcohol Use Standard Drinks/Week Comments Never 0 (1 standard drink = 0.6 oz pur e alcohol) [facility] Utilities Answer Date Recorded In the past 12 months has e electric, gas, oil, or water company threatened to shut off services in your home? No 05/06/2024 Overall Financial Resource Strain (CARDIA) Answe r Date Recorded How hard is it for you to pa y for the very basics like food, housing, medical care, and heating? Somewhat hard 03/03/2024 Hunger Vital Sign Answer Date Recorded Within the past 12 months, y ou worried that your food would run out before you got the money to buy more. Sometimes true Within the past 12 months, t he food you bought just didn't last and you didn't have money to get more. Sometimes true PRAPARE - Transportation Answer Date Re corded In the past 12 months, has l ack of transportation kept you from medical appointments or from getting medications? No 04/24 In the past 12 months, has l ack of transportation kept you from meetings, work, or from getting things needed for daily living? No 05/06/2024 Housing Stability Vital Sign Answer Salvador e [...] the mortgage or rent on time? No 05/06/2024 In the past 12 months, how m any times have you moved where you were living? 1 05/06/2024 At any time in the past 12 m [facility], were you homeless or living in a residential (including now)? No 05/06/2024 IPV Inpatient Questions Answer Date Recorded Does Anyone Try to Keep You From Having Contact with Others or Doing Things Outside Your Home? no 05/06/2024 Feels Threatened by Someone no 04/24 Feels Unsafe at Home or Work/School no 05/06/2024 Physical Signs of Abuse Present no 05/06/2024 Sex and Gender Information Value Date Recorded Sex Assigned at Not on file Gender Identity Not on file Sexual Orientation Not on file documented as of this encounter Miscellaneous Notes * Telephone Encounter - Crys Suarez MD - 05/05/2024 8:35 PM EDT Received transfer center call re: Lucero Doshi Briefly, 74F with 3 days of visual symptoms and CABA who was found to have R occipital hemorrhage. On eliquis for afib which has been reversed. She is reportedly GCS 15 with expected visual field deficits. Upon our review, this is a nonoperative bleed. We would recommend vascular neurology consultation for primary recommendations. It appears that they may accept for transfer and we will be available asneeded. Crys Suarez MD documented in this encounter Plan of Treatment Upcoming Encounters Date Type Department Care Team (Late st Contact Info) Description 11/04/2024 11:15 AM EST Appointment Non-Invasive Cardiology Lab [place] [address] 11/10/2024 8:00 AM EST Office Visit Neurology at [place] [address] Clarisse Duke APRN [facility] [place] [place] [address] 11/15/2024 10:[address] Scan at [place] [address] Karli Morales MD [facility] [place] [address] 11/15/2024 11:20 AM EST Office Visit Neurosurgery at [place] [address] Marvin Kimball PA [facility] [place] [address] 12/15/2024 4:40 PM EST TH Visit (TeleHealth) Cardiology at [place] [address] Duane Causey MD [facility] [place] [address] documented as of this encounter Visit Diagnoses Not on filedocumented in this encounter Care Teams Physical Design Engineer Relationship Specialty Start Date End Date Dorita Zimmerman APRN PCP - General Family Medicine 04/27/22 09/08/24 documented as of this encounter
--- OUTSIDE RECORDS SUMMARY | 2024-10-20 17:31 | XMS_ITS | Encounter Summary ---
Author Organization [facility] Address [facility] [place] [address] Care Team Providers Care Pipe Connector Name Role Phone ErasmoDorita Yajaira RAMOS Primary Care Provider [phone] Reason for Referral * Consultation (Routine) - Duplicate Referral Specialty Diagnoses / Procedures Referred By Contxiang t Referred To Contact Cardiology Diagnoses Atrial fibrillation, unspecified type STRUCTURAL CARD ANGUS/Ravi Larios PA [facility] [place] [address] Arie Orozco MD [facility] [place] [address] Referral ID Status Reason Start Date Expiration Date Visits Requested Visits Authorized [id number] Duplicate Referral Consult, Test & Treat 05/28/2024 05/28/2025 1 1 Encounter Details Date Type Department Care Team (Late st Contact Info) Description 05/28/2024 Orders Only Cardiology at [address] [phone] Shraddha Pichardo RN Atrial fibrillation, unspecified type Social History Tobacco Use Types Packs/Day Years Used Date Smoking Tobacco: Former Cigarettes 2 30 1 - 2002 Smokeless Tobacco: Never Alcohol Use Standard Drinks/Week Comments Never 0 (1 standard drink = 0.6 oz pur e alcohol) [facility] Utilities Answer Date Recorded In the past 12 months has [employer] electric, gas, oil, or water company threatened [...] in the past 12 m [facility], were you homeless or living in a jail (including now)? No 05/06/2024 DH IPV Inpatient Questions Answer Date Recorded [...] 11:15 AM EST Appointment Non-Invasive Cardiology Lab [place] [address] 11/10/2024 8:00 AM EST Office Visit Neurology at [place] [address] Clarisse Duke APRN [facility] [place] [address] 11/15/2024 10:[address] Scan at [place] [address] Karli Morales MD [facility] [place] [address] 11/15/2024 11:20 AM EST Office Visit Neurosurgery at [place] [address] Marvin Kimball PA [facility] [place] [address] 12/15/2024 4:40 PM EST TH Visit (TeleHealth) Cardiology at [place] [address] Duane Causey MD [facility] [place] [address] Scheduled Referrals Name Type Priority Associated Diagnoses Orde r Schedule Amb Referral to Structural Heart Outpatient Referral Routine Atrial fibrillation, unspecified type Ordered: 05/28/2024 documented as of this encounter Visit Diagnoses Diagnosis Atrial fibrillation, unspecified type documented in this encounter Care Teams Pipe Connector Relationship Specialty Start Date End Date Dorita Zimmerman APRN PCP - General Family Medicine 04/27/22 09/08/24 documented as of this encounter
--- OUTSIDE RECORDS SUMMARY | 2024-10-20 17:31 | XMS_ITS | Encounter Summary ---
Author Organization [facility] [place] [address] Care Team Providers Care Food And Beverage Operations Manager Name Role Phone Dorita Zimmerman MAP DRAFTER Primary Care Provider [phone] Encounter Details Date Type Department Care Team (Late st Contact Info) Description 07/22/2024 Cardiology Conference Cardiology at [address] [phone] Margie Meyer Social History Tobacco Use Types Packs/Day Years Used Date Smoking Tobacco: Former Cigarettes 973 2002 Smokeless Tobacco: Never Alcohol Use Standard Drinks/Week Comments Never 0 (1 standard drink = 0.6 oz pur e alcohol) [facility] Utilities Answer Date Recorded In the past [...] place to sleep or slept in a correction (including now)? No 03/03/2024 Housing Stability Vital Sign Answer Salvador e Recorded In the last 12 months, was t here a time when you were not able to pay the mortgage or rent on time? No 05/06/2024 In the past 12 months, how m any times have you moved where you were living? 1 05/06/2024 At any time in the past 12 m [facility], were you homeless or living in a correction (including now)? No 05/06/2024 IPV Inpatient Questions [...] 11:15 AM EST Appointment Non-[place] [phone] 11/10/2024 8:00 AM EST Office [place] [phone] Clarisse Duke APRN [facility] [place] [address] 11/15/2024 10:[address] [place] [phone] Karli Morales MD [facility] [address] 11/15/2024 11:20 AM EST Office Visit Neurosurgery at [place] [phone] Marvin Kimball PA [facility] [place] [address] 12/15/2024 4:40 PM EST TH Visit (TeleHealth) Cardiology at [address] [phone] Duane Causey MD [facility] [place] [address] documented as of this encounter Visit Diagnoses Not on filedocumented in this encounter Care Teams Food And Beverage Operations Manager Relationship Specialty Start Date End Date Dorita Zimmerman APRN PCP - General Family Medicine 04/27/22 09/08/24 documented as of this encounter
--- OUTSIDE RECORDS SUMMARY | 2024-10-20 17:31 | XMS_ITS | Encounter Summary ---
Author Organization [facility] [place] [address] Care Team Providers Care Electronic Typesetting Machine Operator Name Role Phone Dorita Zimmerman RICHARD Primary Care Provider Encounter Details Date Type Department Care Team (Latest Contact Info) Description 07/28/2024 Travel Social History Tobacco Use Types Packs/Day [...] place to sleep or slept in a custodial (including now)? No 03/03/2024 Housing Stability Vital Sign Answer Salvador e Recorded In the last 12 months, was t here a time when you were not able to pay the mortgage or rent on time? No 05/06/2024 In the past 12 months, how m any times have you moved where you were living? 1 05/06/2024 At any time in the past 12 m [facility], were you homeless or living in a custodial (including now)? No 05/06/2024 IPV Inpatient Questions [...] 11:15 AM EST Appointment [place] [address] 11/10/2024 8:00 AM EST Office Visit Neurology at [place] [phone] Clarisse Duek APRN [facility] [place] [address] 11/15/2024 10:[address] [place] [phone] Karli Morales MD [facility] [place] [address] 11/15/2024 11:20 AM EST Office Visit Neurosurgery at [place] [address] Marvin Kimball PA [facility] [place] [address] 12/15/2024 4:40 PM EST TH Visit (TeleHealth) [place] [phone] Duane Causey MD [facility] [place] [address] documented as of this encounter Visit Diagnoses Not on filedocumented in this encounter Care Teams Electronic Typesetting Machine Operator Relationship Specialty Start Date End Date Dorita Zimmerman APRN PCP - General Family Medicine 04/27/22 09/08/24 documented as of this encounter
--- OUTSIDE RECORDS SUMMARY | 2024-10-20 17:31 | XMS_ITS | Encounter Summary ---
Author Organization [facility] Address [facility] [place] [address] Care Team Providers Care Fishery Biologist Name Role Phone Dorita Zimmerman RICHARD Primary Care Provider [phone] Encounter Details Date Type Department Care Team (Late st Contact Info) Description 05/05/2024 3:55 PM EDT Ancillary Procedure Radiology Library at [facility], [place] [phone] Marvin Newberry MD [facility] [place] [address] Social History Tobacco Use Types Packs/Day Years Used Date Smoking Tobacco: Former Cigarettes 973 - 2002 Smokeless Tobacco: Never Alcohol Use Standard Drinks/Week Comments Never 0 (1 standard drink = 0.6 oz pur e alcohol) [facility] Utilities Answer Date Recorded In the past [...] any time in the past 12 m [facility], were you homeless or living in a care home (including now)? No 05/06/2024 IPV Inpatient Questions [...] 11:15 AM EST Appointment Non-[place]vasive [place] [address] 11/10/2024 8:00 AM EST Office [place] [address] Clarisse Duke, BED CONTROL SPECIALIST [facility] [place] [address] 11/15/2024 10:[address] [place] [address] Karli Morales MD [facility] [place] [address] 11/15/2024 11:20 AM EST Office [place] [address] Marvin Kimball PA [facility] NEUROSURGERY [place], [place] [phone] 12/15/2024 4:40 PM EST TH Visit (TeleHealth) Cardiology at [address] [address] Duane Causey MD [facility] CARDIOLOGY [place], [place] [phone] documented as of this encounter Procedures Procedure Name Priority Date/Time Associated Diagnosis Comments FILM LIBRARY STORAGE ONLY CT HEAD AND SPINE Routine 05/05/2024 3:54 PM EDT documented in this encounter Results * Film Library- Storage Only CT Head And Spine (05/05/2024 3:54 PM EDT) Narrative [facility] - 05/05/2024 3:54 PM EDT This exam is auto-finalizing. It's purpose is for storage only. Marvin Newberry MD IMG FILM LIBRARY ORD ERABLES [place], [place] documented in this encounter Visit Diagnoses Not on filedocumented in this encounter Care Teams Fishery Biologist Relationship Specialty Start Date End Date Dorita Zimmerman APRN PCP - General Family Medicine 04/27/22 09/08/24 documented as of this encounter
--- OUTSIDE RECORDS SUMMARY | 2024-10-20 17:31 | XMS_ITS | Encounter Summary ---
Author Organization [facility] Address [facility] [place] [address] Care Team Providers Care Production Crew Supervisor Name Role Phone SohailDorita mccurdy RICHARD Primary Care Provider [phone] Encounter Details Date Type Department Care Team (Late st Contact Info) Description 08/18/2024 8:30 AM EDT TH Visit (TeleHealth) Cardiology at [address] [address] Timoteo Roa MD [facility] [place] [address] History of atrial fibrillation Social History Tobacco Use Types Packs/Day Years Used Date Smoking Tobacco: Former Cigarettes 973 - 2002 Smokeless Tobacco: Never Alcohol Use Standard Drinks/Week Comments Never 0 (1 standard drink = 0.6 oz pur e alcohol) [facility] Utilities Answer Date Recorded In the [...] place to sleep or slept in a halfway (including now)? No 03/03/2024 Housing Stability Vital [...] time in the past [address] [facility], were you homeless or living in a halfway (including now)? No 05/06/2024 IPV Inpatient Questions [...] as of this encounter Progress Notes * Timoteo Roa MD - 08/18/2024 8:30 AM EDT Images from the original note were not included. [facility] [place] [address] CARDIOLOGY/ VASCULAR OUTPATIENT NOTE Lucero Zimmerman, MEDICAL IMAGING TECHNICIAN Reason for visit : shared decision, making ANGUS occluder (telehealth / phone) OFFICE VISIT : From structural heart: 74 yo female with PAF at high stroke risk who has a history of ICH with resultant visual field deficit and unsteady gait providing a rationale for non- pharmacologic stroke prevention strategy. SUBJECTIVE: 74 year old female. Our discussion focused on AF and bleeding complications : #PAF -diagnosis : she thinks maybe 15 years ago, she was having some palpitations -states that she has PAF more often now, but lasts 1-2 hours; some mild shortness of breath -she has been treated with diltiazem and eliquis -no history of AAD or ablation #bleeding episode -May 05, 2024 -spontaneous ICH (severe headache with vision changes, notes hysterectomy one week before) -blood thinner stopped, currently on ASA 81 -unfortunately she still has some residual symptoms from this event (visual, memory) Patient Active Problem List Diagnosis Post-operative state Chronic atrial fibrillation Right occipital hemorrhage with associated vassogenic edema, anticoagulation associated, 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 Most recent labs or other cardiac testing: Holter, [facility] 10/2023: Echo: Interpretation Summary -Left ventricular systolic function is hyperdynamic. The left ventricular ejection fraction is 75% by Ruth's biplane. There are no segmental wall motion abnormalities. -The right ventricle is of normal size. Right ventricular systolic function is normal. -There is aortic valve sclerosis without stenosis. -See report for additional findings. No comparison study is available. Head MRI: IMPRESSION 1. New 1.6 cm hemorrhagic anterior to grossly stable 4.2cm right occipital hemorrhage with intraventricular extension with mild surrounding edema and sulcal effacement. 2. Multiple right parieto-occipital and posterior temporal cortical/subcortical microhemorrhages and chronic right anterior frontal subcortical hemosiderin staining. 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 3. No enhancing mass or vascular malformation. 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 I am unable tofind any documented episodes of AF on ECG, holter, ZIO at [facility], but her records at [facility] only go back to 2021. While on apixaban she had a significant head bleed in April 2024 and still has some residual symptoms. She has not been on any AC since that time. An ANGUS occluder was suggested for her history of PAF. At the time of discharge (April 2024), neurology recommended that she could go back on ASA in 2 weeks after discharge but said anticoagulation contraindicated and likely unsafe to resume in the future, probable cerebral amyloid angiopathy. Referred to structural heart team for consideration of leftatrial appendage closure. Assuming some degree of AF present previously, she favors LAAO over anticoagulation which was not advised (indefinite). Follow-up plan: follow-up with structural heart Timoteo Roa MD, [facility] Cardiovascular Medicine [facility] [address] Clinic [phone] Clinic Team Nurse: [phone] Estimated time : 30 minutes total time in review of lab tests, evaluation, education of suggested medication, ordering medications and tests, communicating care coordination, and documentation of my findings and recommendations. documented in this encounter Plan of Treatment Upcoming Encounters Date Type Department Care Team (Late st Contact Info) Description 11/04/2024 11:15 AM EST Appointment [place] [phone] 11/10/2024 8:00 AM EST Office Visit Neurology at [place] [phone] Clarisse Duke APRN [facility] [place] [address] 11/15/2024 10:[address] Scan at [place] [phone] Karli Morales MD [facility] [place] [address] 11/15/2024 11:20 AM EST Office Visit Neurosurgery at [place] [phone] Marvin Kimball PA [facility] [address] 12/15/2024 4:40 PM EST TH Visit (TeleHealth) Cardiology at [address] [address] Duane Cauesy MD [facility] [place] [address] documented as of this encounter Visit Diagnoses Diagnosis History of atrial fibrillation Personal history of other diseases of circulatory system documented in this encounter Care Teams Production Crew Supervisor Relationship Specialty Start Date End Date Dorita Zimmeramn APRN PCP - General Family Medicine 04/27/22 09/08/24 documented as of this encounter
--- OUTSIDE RECORDS SUMMARY | 2024-10-20 17:31 | XMS_ITS | Encounter Summary ---
Author Organization [place] [address] Care Team Providers Care Tool Planner Name Role Phone EvHinaLeila Primary Care Provider [phone] Reason for Visit * Auth/Cert (Routine) Specialty Diagnoses / Procedures Referred By Contac t Referred To Contact Diagnoses Atrial fibrillation, unspecified type A fib ANGUS Procedures PRO PERQ CLSR TCAT L ATR APNDGE W/ENDOCARDIAL IMPLNT CARDIAC CATHETERIZATION @PERQ TRANSCATH CLOSURE LEFT ATRIAL APPENDAGE W ENDOCARDIAL IMPLANT, INC RAD S&I (WRVU 14) TRANSESOPHAGEAL ECHO DURING CATH/EP PROCEDURE Duane Causey MD [facility] [place] [address] [facility] Referral ID Status Reason Start Date Expiration Date Visits Re quested Visits Authorized [id number] 1 1 Encounter Details Date Type Department Care Team (Late st Contact Info) Description 09/16/2024 1:26 PM EDT Anesthesia [place] [address] Fitz Stone MD [facility] [place] [address] Barbara Lemus CRNA Anesthesia Record Procedure Summary Procedure Name Responsible Anesthesiologist Anesthesia Start Time Anesthesia Stop Time CARDIAC CATHETERIZATION Fitz Stone MD 09/16/24 1326 09/16/24 1521 Events Date Time Event Comment 09/16/2024 1309 1325 AN Verify 1326 Start 1328 An Start Data 1334 An Induction 1340 An Intubation 1341 Anesthesia Ready 1515 Extubation/LMA Out 1519 an stop data 1520 Recovery or ICU Handoff Marisela ent care was transferred to the destination unit staff after review of the patient's medical history, current anesthetic/surgical status and plan, according to the Provider Handoff Checklist. 1521 Stop Meds Name Total fentaNYL 100 mcg lidocaine IV 50 mg propofoL 150 mg rocuronium 70 mg PHENYLephrine 240 mcg ePHEDrine 15 mg neostigmine 4 mg glycopyrrolate 0.4 mg dexmedeTOMIDine 4 mcg/mL 16 mcg ceFAZolin 2 g heparin 7,000 Units lactated ringers infusion 700 mL * Agents Name O2 * Blood No blood administrations on file. Lines, Drains, and Airways Type Details Placement Removal Incision 09/16/24; Right; par ietal region; other (see comments) (crani-hematoma incision) 09/16/24 0000 by Marcia Juarez RN Incision 04/23/24; 0913; abdo men; laparoscopic punctures (specify); 3 Trocar Sites; LDA not present upon assessment; 09/16/24; 18304/23/24 0913 by Linda Barnye RN 09/16/24 183 by Marcia Juarez RN ETT ETT Type: Oral; ETT Size: 8 mm; Notes: RSI; Secured at Teeth: 22 cm; Removal Date: 09/21/24; Removal Time: 1145 09/16/24 0000 by Abimael Nuñez RCP 09/21/24 1145 by Felicia Castillo APARTMENT MAINTENANCE SUPERVISOR Urethral Catheter 09/16/24; Surgery lo nger than 2 hours; indwelling double lumen catheter; latex; 14; inserted at [facility]; 1; 5; 10; 10/02/24; 0246 09/16/24 0000 by Marcia Juarez RN 10/02/24 0246 by Shraddha Jimenez RN Drain/Device Site 09/16/24; Right; par ietal region; collapsible closed device (7mm silicone flat drain); MD Espinal; Sterile prep and drape, Sterile technique; removed by neurosurgery team; 09/21/24; 1400 09/16/24 0000 by Marcia Juarez RN 09/21/24 1400 by Seth Wade TRACY PIV 09/16/24; 1305; [id number] catheter system; 1 in length, 18 gauge; median cubital vein (antecubital fossa), right; prior to admission to unit; distraction; removed per policy/procedure, catheter/device intact; 09/22/24; 223309/16/24 1305 by Dewayne Delacruz RN 09/22/242233 by Hank Oquendo RN ETT Mask Ventilation: Aleksandr correa (1); ETT Type: Cuffed, Oral; ETT Size: 7 mm; Mac Blade: 3; Notes: Asleep, Pre-O2, Stylette; Attempts: 1; Laryngoscopy Grade: 1; ETT Placement Verified By: Auscultation, Capnometry; Secured at Teeth: 21 cm; Inserted by: radha SUNG; Removal Date: 09/16/24; Removal Time: 1515 09/16/24 1340 by Barbara Lemus CRNA 09/16/24 1515 by Barbara Lemus CRNA LDA Cath/EP Sheath 09/16/24; 1412; 17 F rench (Fr); Right; Femoral; Venous 09/16/24 1412 by Dayton Barbour, TRACY 09/16/24 1502 by Dayton Barbour, RN documented in this encounter Social History Tobacco Use Types Packs/Day Years Used Date Smoking Tobacco: Former Cigarettes 2 30 1 973 - 2002 Smokeless Tobacco: Never Alcohol Use Standard Drinks/Week Comments Never 0 (1 standard drink = 0.6 oz pur e alcohol) [facility] Utilities Answer Date Recorded In the past [address] [employer], gas, oil, or water [employer] threatened to shut off services in your [...] any time in the past 12 m [facility], were you homeless or [...] OR Notes * Anesthesia Postprocedure Evaluation - Fitz Stone MD - 09/16/2024 10:09 PM EDT Department of Anesthesiology Post-procedure Note Patient: Lucero Arthur Procedure Summary Date: 09/16/24 Room / Location: [facility] [address] [place] [address] CATH LABS Anesthesia Start: 1326 Anesthesia Stop: 1521 Procedures: CARDIAC CATHETERIZATION @PERQ TRANSCATH CLOSURE LEFT ATRIAL APPENDAGE W ENDOCARDIAL IMPLANT, INC RAD S&I (WRVU 14) TRANSESOPHAGEAL ECHO DURING CATH/EP PROCEDURE Diagnosis: Atrial fibrillation, unspecified type (A fib ) (ANGUS) Providers: Duane Causey MD; Tl Gamino MD Responsible Provider: Fitz Stone MD Anesthesia Type: general ASA Status: 3 All Anesthesia Providers: Anesthesiologist: Fitz Stone MD CARBIDE TOOL DIE MAKER: Barbara Lemus CRNA Vitals Value Taken Time BP 142/68 09/16/24 1625 Temp 36.4 ??C (97.5 ??F) 09/16/24 220 Pulse 64 09/16/24 2208 Resp 15 09/16/24 2208 SpO2 95 % 09/16/24 220 Pain Level 10 09/16/24 1616 Vitals shown include unfiled device data. ANES POST EVAL Called to CRU, patient complaining of nausea and severe headache. Pupils equal and reactive and small (2 mm). Moving all extremities. Mental status appropriate. Protamine administered. Ordered stat head CT. In CT patient became progressively somnolent. VSS. Head CT with markedly enlarged bleed, midline shift. I called stat neurosurgical consultation. I intubated patient. HOB elevated. Mannitol given. With assistance I escorted pt to OR when ready. Care transferred to anesthesia team. Greatly appreciate expert assistance from RN team, CT staff, respiratory, neurology, neurocritical care, neurosurgical, and anesthesia teams. Family updated by Dr. Causey. * Anesthesia Preprocedure Evaluation - Fitz Stone MD - 09/16/2024 1:08 PM EDT Pre-Anesthesia Evaluation for: Lucero Arthur a 74 y.o. female. 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 05/06/2024 Past Medical History: Diagnosis Date Irregular heart beat Obstructive sleep apnea Past Surgical History: Procedure Laterality Date PRO LAPAROSCOPY W TOT HYSTERECTUTERUS <=250 GRAM W TUBE/OVARY N/A 04/23/2024 LAPAROSCOPY, TOTAL HYST, UTERUS<250GMS, REM TUBE &/OR OVARY (WRVU 15) performed by Xiomara Burkett MD at [facility] MAIN OR Social History Tobacco Use Smoking status: Former Current packs/day: 0.00 Average packs/day: 2.0 packs/day for 30.0 years (60.0 ttl pk-yrs) Types: Cigarettes Start date: 1972 Quit date: 2002 Years since quittin.8 Smokeless tobacco: Never Substance Use Topics Alcohol use: Never Social History Substance and Sexual Activity Drug Use Never Allergies Allergen Reactions Oxycodone-Acetaminophen Other (See Comments) Other reaction(s): hallucinations Alendronate Sodium Nausea Only Contact Metal Agent Medications: MAR and/or home medications have been reviewed. Physical Exam: Preprocedure Vitals Current as of 09/16/24 1308 BP: 145/71 Pulse: 65 Resp: 16 SpO2: 97 Temp: 36.7 ??C (98.1 ??F) Height: 152.4 cm (5') (09/16/24) Weight: 88.5 kg (195 lb) (09/16/24) BMI: 38.08 IBW: 45.5 kg (100 lb 4.9 oz) Last edited 09/16/24 1258 by BS Airway Assessment: Mallampati: II Cardiovascular Assessment: Rhythm: regular Pulmonary Assessment: unlabored breathing Dental Assessment: Misc Assessment: Last Filed Perioperative Cognitive Screening Value Time User AD8 Total Score: 6 03/03/2024 1:00 PM Gera Alexis, RN AD8 Informant: Patient 03/03/2024 1:00 PM Gera Alexis, RN CFS Frailty Score: 3 03/03/2024 1:00 PM Gera Alexis, RN Anesthesia Plan: ASA 3 general, On ASA, likely risk/benefit satisfactory for procedural anticoagulation. Plan GA, potential invasive monitoring, MONICA. Informed Consent: Anesthesia Screening documented in this encounter Plan of Treatment Upcoming Encounters Date Type Department Care Team (Late st Contact Info) Description 11/04/2024 11:15 AM EST Appointment Non-Invasive [place] [address] 11/10/2024 8:00 AM EST Office Visit Neurology at [place] [phone] Clarisse Duke APRN [facility] [place] [address] 11/15/2024 10:[address] [place] [address] Karli Morales MD [facility] [place] [address] 11/15/2024 11:20 AM EST Office Visit Neurosurgery at [place] [phone] Marvin Kimball PA [facility] [place] [address] 12/15/2024 4:40 PM EST TH Visit (TeleHealth) Cardiology at [place] [phone] Duane Causey MD [facility] [place] [address] documented as of this encounter Visit Diagnoses Not on filedocumented in this encounter Administered Medications Inactive Administered Medications - up to 3 most recent administrations Medication Order MAR Action Action Date Dose Rate Site ceFAZolin (Ancef) (100 mg/mL) injection solution Intravenous, PRN, Starting on Ashley 09/16/24 at 1345, Until Ashley 09/16/24 at 1521, Anesthesia Intra-op, Routine Given 09/16/2024 1:45 PM EDT 2 g dexmedeTOMIDine (Precedex) (4 mcg/mL) bolus injection (Anesthsia) Intravenous, PRN, Starting on Ashley 09/16/24 at 1327, Until Ashley 09/16/24 at 1521, Anesthesia Intra-op, Routine Given 09/16/2024 1:34 PM EDT 8 mcg Given 09/16/2024 1:27 PM EDT 8 mcg ePHEDrine sulfate (5 mg/mL) multi-dose injection Intravenous, PRN, Starting on Ashley 09/16/24 at 1422, Until [place] 09/16/24 at 1521, Anesthesia Intra-op, Routine Given 09/16/2024 2:32 PM EDT 10 mg Given 09/16/2024 2:22 PM EDT 5 mg fentaNYL (pf) (50 mcg/mL) multi-dose injection Intravenous, PRN, Starting on Ashley 09/16/24 at 1327, Until [place] 09/16/24 at 1521, Anesthesia Intra-op, Routine Given 09/16/2024 1:34 PM EDT 50 mcg Given 09/16/2024 1:27 PM EDT 50 mcg glycopyrrolate (Robinul) (0.2 mg/mL) multi-dose injection Intravenous, PRN, Starting on Ashley 09/16/24 at 1510, Until [place] 09/16/24 at 1521, Anesthesia Intra-op, Routine Given 09/16/2024 3:10 PM EDT 0.4 mg heparin (porcine) (1,000 units/mL) injection Intravenous, PRN, Starting on Ashley 09/16/24 at 1422, Until [place] 09/16/24 at 1521, Anesthesia Intra-op, Routine Given 09/16/2024 2:35 PM EDT 3,000 Uni ts Given 09/16/2024 2:22 PM EDT 4,000 Units lactated ringers infusion 1,000 mL, at 100 mL/hr, Intravenous, CONTINUOUS, Starting on Ashley 09/16/24 at 1315, Until [place] 09/16/24 at 1531, Day of Surgery (Day of Procedure) New Bag 09/16/2024 1:10 PM EDT lidocaine (pf) (Xylocaine) (20 mg/mL) 2% injection syringe Intravenous, PRN, Starting on Ashley 09/16/24 at 1335, Until [place] 09/16/24 at 1521, Anesthesia Intra-op, Routine Given 09/16/2024 1:35 PM EDT 50 mg neostigmine (Bloxiver) (1 mg/mL) injection Intravenous, PRN, Starting on Ashley 09/16/24 at 1510, Until [place] 09/16/24 at 1521, Anesthesia Intra-op, Routine Given 09/16/2024 3:10 PM EDT 4 mg PHENYLephrine in NS (PF) (MARV-SYNEPHRINE) 0.8 mg/10 mL (80 mcg/mL) multi-dose injection Syringe Intravenous, PRN, Starting on Ashley 09/16/24 at 1400, Until [place] 09/16/24 at 1521, Anesthesia Intra-op, Routine Given 09/16/2024 2:32 PM EDT 80 mcg Given 09/16/2024 2:22 PM EDT 80 mcg Given 09/16/2024 2:00 PM EDT 80 mcg propofoL (Diprivan) 10 mg/mL bolus injection (Anesthesia) Intravenous, PRN, Starting on Ashley 09/16/24 at 1338, Until [place] 09/16/24 at 1521, Anesthesia Intra-op Given 09/16/2024 1:38 PM EDT 150 mg rocuronium (Zemuron) (10 mg/mL) multi-dose injection Intravenous, PRN, Starting on Ashley 09/16/24 at 1338, Until [place] 09/16/24 at 1521, Anesthesia Intra-op, Routine Given 09/16/2024 2:45 PM EDT 20 mg Given 09/16/2024 1:38 PM EDT 50 mg documented in this encounter Care Teams Tool Planner Relationship Specialty Start Date End Date Leila Manjarrez [address] [place] [address] PCP - General Family Medicine 09/09/24 documented as of this encounter
--- OUTSIDE RECORDS SUMMARY | 2024-10-20 17:31 | XMS_ITS | Encounter Summary ---
Author Organization [facility] [place] [address] Care Team Providers Care Track Patrol Name Role Phone Dorita Zimmerman RICHARD Primary Care Provider [phone] Encounter Details Date Type Department Care Team (Latest Contact Info) Description 05/24/2024 Travel Social History Tobacco Use Types Packs/Day Years Used Date Smoking Tobacco: Former Cigarettes 1 973 - 2002 Smokeless Tobacco: Never Alcohol Use Standard Drinks/Week Comments Never 0 (1 standard drink = 0.6 oz pur e alcohol) [facility] Utilities Answer Date Recorded In the past [...] place to sleep or slept in a fci (including now)? No 03/03/2024 Housing Stability Vital Sign Answer Salvador e Recorded In the last 12 months, was t here a time when you were not able to pay the mortgage or rent on time? No 05/06/2024 In the past 12 months, how m any times have you moved where you were living? 1 05/06/2024 At any time in the past 12 m [facility], were you homeless or living in a fci (including now)? No 05/06/2024 IPV Inpatient Questions [...] 11:15 AM EST Appointment Non-Invasive [place] [address] 11/10/2024 8:00 AM EST Office Visit Neurology at [place] [phone] Clarisse Duke APRN [facility] [place] [address] 11/15/2024 10:[address] [place] [phone] Karli Morales MD [facility] [place] [address] 11/15/2024 11:20 AM EST Office Visit Neurosurgery at [place] [address] Marvin Kimball PA [facility] [place] [address] 12/15/2024 4:40 PM EST TH Visit (TeleHealth) [place] [address] Duane Causey MD [facility] [place] [address] documented as of this encounter Visit Diagnoses Not on filedocumented in this encounter Care Teams Track Patrol Relationship Specialty Start Date End Date Dorita Zimmerman APRN PCP - General Family Medicine 04/27/22 09/08/24 documented as of this encounter
--- OUTSIDE RECORDS SUMMARY | 2024-10-20 17:31 | XMS_ITS | Encounter Summary ---
Author Organization [facility] Address [facility] [place] [address] Care Team Providers Care Operations Accountant Name Role Phone Dorita Zimmerman RICHARD Primary Care Provider [phone] Encounter Details Date Type Department Care Team (Late st Contact Info) Description 05/05/2024 4:30 PM EDT Telehealth notes only TeleHealth [facility] [place] [phone] Telehealth, Neurology None Social History Tobacco Use Types Packs/Day Years Used Date Smoking Tobacco: Former Cigarettes 973 2002 Smokeless Tobacco: Never Alcohol Use Standard Drinks/Week Comments Never 0 (1 standard drink = 0.6 oz pur e alcohol) [facility] Utilities Answer Date Recorded In the past [...] any time in the past 12 m [facility], were you homeless or living in a snf (including now)? No 05/06/2024 IPV Inpatient Questions [...] 11:15 AM EST Appointment Non-[place] [address] 11/10/2024 8:00 AM EST Office [place] [phone] Clarisse Duke, RICHARD [facility] [address] 11/15/2024 10:[address] [place] [phone] Karli Morales MD [facility] [place] [address] 11/15/2024 11:20 AM EST Office Visit Neurosurgery at [place] [phone] Marvin Kimball PA [facility] [place] [address] 12/15/2024 4:40 PM EST TH Visit (TeleHealth) Cardiology at [place] [phone] Duane Causey MD [facility] [place] [address] documented as of this encounter Visit Diagnoses Not on filedocumented in this encounter Care Teams Operations Accountant Relationship Specialty Start Date End Date Dorita Zimmerman APRN PCP - General Family Medicine 04/27/22 09/08/24 documented as of this encounter
--- OUTSIDE RECORDS SUMMARY | 2024-10-20 17:31 | XMS_ITS | Encounter Summary ---
[place] [address] Care Team Providers Care Portfolio Assistant Name Role Phone Dorita Zimmerman RICHARD Primary Care Provider [phone] Reason for Referral * Consultation (Routine) - Authorized Specialty Diagnoses / Procedures Referred By Aicha beckwith Referred To Contact Neurology Diagnoses Cerebral amyloid angiopathy Abdulkadir Sharma MD [address] [place] [id number] [facility] Neurology [address] [place] [phone] Referral ID Status Reason Start Date Expiration Date Visits Requested Visits Authorized [id number] Authorized Consult, Test & Treat 05/14/2024 05/14/2025 1 1 Encounter Details Date Type Department Care Team ([facility] st Contact Info) Description 05/14/2024 Transcribe Orders eDH Incoming Referrals [phone] Abdulkadir Sharma MD [address] [place] [phone] Cerebral amyloid angiopathy Social History Tobacco Use Types Packs/Day Years Used Date Smoking Tobacco: Former Cigarettes 2 30 1 - 2002 Smokeless Tobacco: Never Alcohol Use Standard Drinks/Week Comments Never 0 (1 standard drink = 0.6 oz pur e alcohol) [facility] Utilities Answer Date Recorded In the past 12 months has [employer] electric, gas, oil, or water company threatened [...] place to sleep or slept in a mcfp (including now)? No 03/03/2024 Housing Stability Vital Sign Answer Salvador e Recorded In the last 12 months, was t here a time when you were not able to pay the mortgage or rent on time? No 05/06/2024 In the past 12 months, how m any times have you moved where you were living? 1 05/06/2024 At any time in the past 12 m [facility], were you homeless or living in a mcfp (including now)? No 05/06/2024 IPV Inpatient Questions [...] 11:15 AM EST Appointment Non-Invasive Cardiology Lab [place] [address] 11/10/2024 8:00 AM EST Office Visit Neurology at [place] [address] Clarisse Duke APRN [facility] [place] [address] 11/15/2024 10:[address] Scan at [place] [address] Karli Morales MD [facility] [place] [address] 11/15/2024 11:20 AM EST Office Visit Neurosurgery at [place] [address] Marvin Kimball PA [facility] [place] [address] 12/15/2024 4:40 PM EST TH Visit (TeleHealth) Cardiology at [place] [address] Duane Causey MD [facility] [place] [address] Scheduled Referrals Name Type Priority Associated Diagnoses Orde r Schedule Referral to Neurology Outpatient Referral Routine Cerebral amyloid angiopathy Ordered: 05/14/2024 documented as of this encounter Visit Diagnoses Diagnosis Cerebral amyloid angiopathy Other amyloidosis documented in this encounter Care Teams Portfolio Assistant Relationship Specialty Start Date End Date Dorita Zimmerman APRN PCP - General Family Medicine 04/27/22 09/08/24 documented as of this encounter
--- OUTSIDE RECORDS SUMMARY | 2024-10-20 17:31 | XMS_ITS | Encounter Summary ---
Author Organization [facility] Address [facility] [place] [address] Care Team Providers Care Drawing In Hand Name Role Phone Dorita Zimmerman APRN Primary Care Provider [phone] Reason for Visit * Consultation (Routine) - Closed Specialty Diagnoses / Procedures Referred By Aicha beckwith Referred To Contact Cardiology Diagnoses PAF (paroxysmal atrial fibrillation) Intracranial hemorrhage STRUCTURAL CARD pAF, previously on apixaban, now hemorrhagic stroke. Consideration of Ravi Sneed PA [facility] [place] [address] Arie Orozco MD [facility] [place] [address] Referral ID Status Reason Start Date Expiration Date V isits Requested Visits Authorized [id number] Closed Consult, Test & Treat 05/08/2024 05/08/2025 1 1 Encounter Details Date Type Department Care Team (Late st Contact Info) Description 07/28/2024 3:40 PM EDT Office Visit Cardiology at [address] [phone] Duane Causey MD [facility] [place] [address] Atrial fibrillation, unspecified type Social History Tobacco Use Types Packs/Day Years Used Date Smoking Tobacco: Former Cigarettes 2 30 1 3 - 2002 Smokeless Tobacco: Never Alcohol Use Standard Drinks/Week Comments Never 0 (1 standard drink = 0.6 oz pur e alcohol) [facility] Utilities Answer Date Recorded In the [...] place to sleep or slept in a skilled nursing (including now)? No 03/03/2024 Housing Stability Vital Sign Answer Salvador e Recorded In the last 12 months, was t here a time when you were not able to pay the mortgage or rent on time? No 05/06/2024 In the past 12 months, how m any times have you moved where you were living? 1 05/06/2024 At any time in the past 12 m [facility], were you homeless or living in a skilled nursing (including now)? No 05/06/2024 DH IPV Inpatient [...] Sign Reading Time Taken Comments Blood Pressure 134/55 07/28/2024 3:15 PM EDT Pulse 64 07/28/2024 3:15 PM EDT Temperature - - Respiratory Rate - - Oxygen Saturation 96% 07/28/2024 3:15 PM EDT Inhaled Oxygen Concentration - - Weight 85.3 kg (188 lb) 07/28/2024 3:15 PM EDT Height 152.4 cm (5') 07/28/2024 3:15 PM EDT Body Mass Index 36.72 07/28/2024 3:15 PM EDT documented in this encounter Progress Notes * Duane Causey MD - 07/28/2024 3:40 PM EDT 74 yo Female with PAF ICH who is referred by Ravi WRIGHT for LAAO Focused Problem List PAF Patient with log history of PAF with episodes occurring ~1 monthly which last ~1 hour terminating spontaneously TTE -05/06/2024 Left ventricular systolic function is hyperdynamic. The left ventricular ejection fraction is 75% by Ruth's biplane. There are no segmental wall motion abnormalities. -The right ventricle is of normal size. Right ventricular systolic function is normal. -There is aortic valve sclerosis without stenosis ICH Apr 2024 'Wicked bad headache' On Apixaban Left visual field deficit. Doing well Unsteady gait walks with a cane A 4.2 x 2.0 cm right occipital hemorrhage with mild surrounding edema and extension to the posterior right lateral ventricle and small volume hemorrhage layering in the occipital horns is not significantly changed since the prior CT, given technical differences. There is a new 1.6 x 1.0 cm right temporal occipital hemorrhage anterior inferior to this, with mild surrounding edema. There is effacement of the right parieto-occipital and posterior temporal sulci with enhancement of prominent pial vessels. 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 Palpitations, pre-syncope or syncope. Angina or anginal equivalents. Neuro ROS: Patient specifically denies symptoms consistent with recurrent TIA/Stroke Physical Exam BP 134/55 P 64 General: Healthy obese female who appeared to be her stated age Lungs: Clear to auscultation CV: Neck veins were not elevated, PMI is non-displaced rhythm is regular in the 60's bpm. There is a normal S1 followed by a physiologically split S2 without, S3, S4, pathologic rub or murmur. Abdomen: Rotund, non-tender without palpable liver, spleen or masses LE: Without edema, with good distal pulses Neuro: Unsteady gait Lab Results Component Value Date CREATININE 0.68 (L) 05/08/2024 BUN 14 05/08/2024 ESTGFR 92 05/08/2024 K 4.2 05/08/2024 WBC 12.6 (H) 05/08/2024 HGB 14.6 05/08/2024 PLATELET 246 05/08/2024 Assessent and Plan 74 yo female with PAF at high stroke risk who has a history of ICH with resultant visual field deficit and unsteady gait providing a rationale for non- pharmacologic stroke prevention strategy. Using SDM I outlined to the patient along with her partner the rationale for ANGUS-C Watchman. In addition, I reviewed the procedural risk including access site bleeding requiring blood transfusion and/or surgery, VARUN, Stroke, cardiac perforation requiring percutaneous drainage and/or emergent 'open heart' surgery and device embolization requiring 'open heart' and/or 'open belly' surgery. The patient and her partner appear to understand and wish to proceed Schedule LAAO (Screen on Table) SDM evaluation needed Patient is not currently on OAC Anticipate same day discharge 45 day imaging by MONICA or Cardiac CT Duane Causey M.D., F.A.CBertinC. health and safety technician Pager [phone] 60 min encounter including chart review, clinic visit and documentation documented in this encounter Plan of Treatment Upcoming Encounters Date Type Department Care Team (Late st Contact Info) Description 11/04/2024 11:15 AM EST Appointment Non-Invasive Cardiology Lab [place] [address] 11/10/2024 8:00 AM EST Office Visit Neurology at [place] [address] Clarisse Duke APRN [facility] [place] [address] 11/15/2024 10:[address] Scan at [place] [address] Karli Morales MD [facility] [place] [address] 11/15/2024 11:20 AM EST Office Visit Neurosurgery at [address] Marvin Kimball PA [facility] [place] [address] 12/15/2024 4:40 PM EST TH Visit (TeleHealth) Cardiology at [place] [address] Duane Causey MD [facility] [place] [address] documented as of this encounter Visit Diagnoses Diagnosis Atrial fibrillation, unspecified type documented in this encounter Care Teams Drawing In Hand Relationship Specialty Start Date End Date Dorita Zimmerman APRN PCP - General Family Medicine 04/27/22 09/08/24 documented as of this encounter
--- OUTSIDE RECORDS SUMMARY | 2024-10-20 17:31 | XMS_ITS | Encounter Summary ---
Author Organization [facility], [facility] [place] [address] Care Team Providers Care Green Building Materials Designer Name Role Phone Dorita Zimmerman HOT STICK WORKER Primary Care Provider [phone] Encounter Details Date Type Department Care Team (Late st Contact Info) Description 08/02/2024 Notes Only Cardiology at [address] [phone] Shraddha Pichardo RN Social History Tobacco Use Types Packs/Day Years Used Date Smoking Tobacco: Former Cigarettes 2 30 973 - 2002 Smokeless Tobacco: Never Alcohol Use Standard Drinks/Week Comments Never 0 (1 standard drink = 0.6 oz pur e alcohol) [facility] Utilities Answer Date Recorded In the [...] place to sleep or slept in a assisted (including now)? No 03/03/2024 Housing Stability Vital Sign Answer Salvador e Recorded In the last 12 months, was t here a time when you were not able to pay the mortgage or rent on time? No 05/06/2024 In the past 12 months, how m any times have you moved where you were living? 1 05/06/2024 At any time in the past 12 m [facility], were you homeless or living in a assisted (including now)? No 05/06/2024 DH IPV Inpatient [...] as of this encounter Progress Notes * Shraddha Pichardo RN - 08/02/2024 11:38 AM EDT Spoke to Jerson in regards to scheduling LAAO with Dr. Causey. She accepted 09/16 as procedural date. Pre and post education reviewed, she verbalized understanding. No medications to stop prior. documented in this encounter Plan of Treatment Upcoming Encounters Date Type Department Care Team (Late st Contact Info) Description 11/04/2024 11:15 AM EST Appointment Non-Invasive [place] [phone] 11/10/2024 8:00 AM EST Office Visit Neurology at [place] [address] Clarisse Duke APRN [facility] [place] [address] 11/15/2024 10:[address] Scan at [place] [address] Karli Morales MD [facility] [place] [address] 11/15/2024 11:20 AM EST Office [place] [address] Marvin Kimball PA [facility] [place] [address] 12/15/2024 4:40 PM EST TH Visit (TeleHealth) Cardiology at [place] [address] Duane Causey MD [facility] [place] [address] documented as of this encounter Visit Diagnoses Not on filedocumented in this encounter Care Teams Green Building Materials Designer Relationship Specialty Start Date End Date Dorita Zimmerman APRN PCP - General Family Medicine 04/27/22 09/08/24 documented as of this encounter
--- OUTSIDE RECORDS SUMMARY | 2024-10-20 17:31 | XMS_ITS | Encounter Summary ---
[facility] Organization [facility] [place] [address] Care Team Providers Care Dog Beautician Name Role Phone Dorita Zimmerman APRN Primary Care Provider [phone] Encounter Details Date Type Department Care Team (Late st Contact Info) Description 04/23/2024 8:31 AM EDT Anesthesia Event [place] [phone] Francisca Escobar MD [facility] [place] [address] Dayana Peña CRNA [facility] [place] [address] Anesthesia Record Procedure Summary Procedure Name Responsible Anesthesiologist Anesthesia Start Time Anesthesia Stop Time LAPAROSCOPY, TOTAL HYST, UTERUS<250GMS, REM TUBE &/OR OVARY (WRVU 15) (Pelvis) Francisca Escobar MD 04/23/24 0831 04/23/24 1121 Events Date Time Event Comment 04/23/2024 0823 0830 AN Verify 0831 Start 0837 An Start Data 0844 An Induction 0847 An Intubation 0914 Procedure Start 0929 Anesthesia Ready 1110 Extubation/LMA Out 1111 an stop data 1121 Recovery or ICU Handoff Marisela ent care was transferred to the destination unit staff after review of the patient's medical history, current anesthetic/surgical status and plan, according to the Provider Handoff Checklist. 1121 Stop Meds Name Total Midazolam 1 mg fentaNYL 100 mcg IV Lidocaine 20 mg Propofol 170 mg Rocuronium 60 mg PHENYLephrine 80 mcg Ondansetron 8 mg Dexamethasone 8 mg Neostigmine 4 mg Glycopyrrolate 0.4 mg ceFAZolin (Ancef) 2 g vial a ttach to sodium chloride 0.9% 100 mL Mini-Bag Plus 2 g metroNIDAZOLE (Flagyl) 500 mg in sodium chloride 0.9% 100 mL infusion 500 mg propofol INF 420.21 mg lidocaine 4% LTA 2 mL dexmedeTOMIDine 12 mcg ketorolac 15 mg lactated ringers infusion 800 mL lactated ringers 200 mL * Agents Name O2 * Blood No blood administrations on file. Lines, Drains, and Airways Type Details Placement Removal PIV 04/23/24; 08; yirj-zpj-rhxyde catheter system; 20 gauge; median cubital vein (antecubital fossa), right; Anatomical Landmarks; US Not Used; darren MOLINA; tolerated well, appears comfortable, distraction; no longer indicated, removed per policy/procedure, catheter/device intact; 04/23/24; 13504/23/24 08 by Darren Kelly RN 04/23/24 135 by Angus Alejo RN ETT Mask Ventilation: Aleksandr correa (1); ETT Type: Cuffed, Oral; ETT Size: 7 mm; Mitchell Blade: 2; Notes: Asleep, Pre-O2, Stylette; Attempts: 1; Laryngoscopy Grade: 1; ETT Placement Verified By: Auscultation, Capnometry, Visual; Secured at Teeth: 20 cm; Inserted by: navarro; Removal Date: 04/23/24; Removal Time: 1110 04/23/24 0900 by Dayana Peña CRNA 04/23/24 1110 by Dayana Peña CRNA Urethral Catheter 04/23/24; 0903; Need for intraoperative urine output monitoring, Physician order; indwelling double lumen catheter; latex, silicone coated; 14; inserted at this facility; 1; 10; 10; none; drainage bag; 04/23/24; 1340 04/23/24 0903 by Linda Barney RN 04/23/24 1340 by Angus Tsang RN Incision 04/23/24; 0913; abdo men; laparoscopic punctures (specify); 3 Trocar Sites; LDA not present upon assessment; 09/16/24; 18304/23/24 09 by Linda Barney RN 09/16/24 183 by Marcia Juarez RN PIV 04/23/24; 09; yqam-voa-yqcpmi catheter system; 18 gauge; metacarpal vein (top of hand), left; no longer indicated, catheter/device intact, removed per policy/procedure; 04/23/24; 1355 04/23/24 0929 by Dayana Peña CRNA 04/23/24 135 by Angus Alejo RN documented in this encounter Social History Tobacco Use Types Packs/Day Years Used Date Smoking Tobacco: Former Cigarettes 2 30 1 973 - 2002 Smokeless Tobacco: Never Alcohol Use Standard Drinks/Week Comments Never 0 (1 standard drink = 0.6 oz pur e alcohol) [facility] Utilities Answer Date Recorded In the [...] place to sleep or slept in a group home (including now)? No 03/03/2024 Housing Stability [...] any time in the past 12 m [facility], were you homeless or living in a group home (including now)? No 05/06/2024 DH IPV Inpatient [...] OR Notes * Anesthesia Postprocedure Evaluation - Francisca Escobar MD - 05/17/2024 11:56 AM EDT Department of Anesthesiology Post-procedure Note Patient: Lucero Arthur Procedure Summary Date: 04/23/24 Room / Location: [address] MAIN OR Anesthesia Start: 830 Anesthesia Stop: 1120 Procedure: LAPAROSCOPY, TOTAL HYST, UTERUS<250GMS, REM TUBE &/OR OVARY (WRVU 15) (Pelvis) Diagnosis: (PMB) Surgeons: Xiomara Burkett MD Responsible Provider: Francisca Escobar MD Anesthesia Type: general ASA Status: 3 All Anesthesia Providers: Anesthesiologist: Francisca Escobar MD NURSE FIRST AID: Dayana Peña CRNA Vitals Value Taken Time BP 149/65 04/23/24 1315 Temp 36.4 ??C (97.5 ??F) 04/23/24 1400 Pulse 82 04/23/24 1315 Resp 13 04/23/24 1315 SpO2 96 % 04/23/24 1315 Pain Level 3 04/23/24 1400 [facility] Level of Consciousness: Awake and Alert Pain Management: Satisfactory Analgesia PONV: None Cardiovascular Status: At Baseline and Hemodynamically Stable Respiratory Status: At Baseline and Room Air Postoperative Fluid Status: Intravascular EUvolemia Possible Anesthetic Complications: NONE apparent at time of evaluation Final Primary Anesthesia Type: General (The anesthetic type performed was the same as planned.) Comments: Francisca Escobar MD * Anesthesia Preprocedure Evaluation - Francisca Escobar MD - 04/23/2024 7:44 AM EDT Images from the original note were not included. Pre-Anesthesia Evaluation for: Lucero Arthur a 74 y.o. female. Procedure(s): LAPAROSCOPY, TOTAL HYST, UTERUS<250GMS, REM TUBE &/OR OVARY (WRVU 15) There are no problems to display for this patient. Past Medical History: Diagnosis Date ??? Irregular heart beat ??? Obstructive sleep apnea No past surgical history on file. Social History Tobacco Use ??? Smoking status: Former Current packs/day: 0.00 Average packs/day: 2.0 packs/day for 30.0 years (60.0 ttl pk-yrs) Types: Cigarettes Start date: 1972 Quit date: 2002 Years since quittin.4 ??? Smokeless tobacco: Never Substance Use Topics ??? Alcohol use: Never Social History Substance and Sexual Activity Drug Use Never Allergies Allergen Reactions ??? Glucose Nausea Only ??? Oxycodone-Acetaminophen Other (See Comments) Other reaction(s): hallucinations ??? Alendronate Sodium Nausea Only ??? Contact Metal Agent Medications: MAR and/or home medications have been reviewed. Physical Exam: Preprocedure Vitals Current as of 04/23/24 0744 No BP, pulse, respiration, SpO2, or temperature recorded. Height: Weight: BMI: IBW: Airway Assessment: Mallampati: III TM distance: >3 FB Neck ROM: full Cardiovascular Assessment: Rhythm: irregular Pulmonary Assessment: pulmonary exam normal Dental Assessment: - normal exam Misc Assessment: Patient is wearing No contact(s). IV access: Peripheral line Last Filed Perioperative Cognitive Screening Value Time User AD8 Total Score: 6 03/03/2024 1:00 PM Gera Alexis, RN AD8 Informant: Patient 03/03/2024 1:00 PM Gera Alexis, RN CFS Frailty Score: 3 03/03/2024 1:00 PM Gera Alexis, RN Anesthesia Plan: ASA 3 general, with a(n) intravenous induction 74 yo 85kg (BMI 35) F with persistent postmenopausal bleeding presenting for DAPHNE/BSO. PMH is otherwise notable for Afib on eliquis and diltiazem, HLD, chronic pain (Tramadol), former 60pack year smoker. Allergies include Percocet (nausea), alendronate, metal contact dermatitis. Labs reviewed: Hgb 16 Eliquis last dose Friday night. Took her dilt yesterday evening. Appropriately NPO. No GERD symptoms. Plan is GA/ETT with standard monitors and PIVx2. The patient was informed of the risks, benefits and alternatives of anesthesia. These risks included, but were not limited to, post-operative nausea and/or vomiting, pain, sore throat, dental/lip trauma, and other rare but serious complications such as major organ damage, awareness, severe allergicreactions, position-related nerve injuries, corneal abrasion/blindness and need blood transfusions.All questions were sought and answered. Consent was signed and placed in chart. Region - Other Informed Consent: Anesthetic plan and risks discussed with patient. Plan discussed with NURSE FIRST AID. Anesthesia Screening documented in this encounter Plan of Treatment Upcoming Encounters Date Type Department Care Team (Late st Contact Info) Description 11/04/2024 11:15 AM EST Appointment Non-[place] [phone] 11/10/2024 8:00 AM EST Office [place] [phone] Clarisse Duke APRN [facility] [place] [address] 11/15/2024 10:[address] [place] [address] Karli Morales MD [facility] [place] [address] 11/15/2024 11:20 AM EST Office [place] [phone] Marvin Kimball PA [facility] NEUROSURGERY [place] [id number] 12/15/2024 4:40 PM EST TH Visit (TeleHealth) Cardiology at [address] [phone] Duane Causey MD [facility] [address] documented as of this encounter Visit Diagnoses Not on filedocumented in this encounter Administered Medications Inactive Administered Medications - up to 3 most recent administrations Medication Order MAR Action Action Date Dose Rate Site ceFAZolin (Ancef) 2 g vial attach to sodium chloride 0.9% 100 mL Mini-Bag Plus 2 g, Intravenous, ONCE, 1 dose, On Fri04/23/24 at 0815, Administer over 30 Minutes, Power Tool Repair Technician to OR Infuse over 30 minutes., Day of Surgery (Day of Procedure), Indication for (Active or Suspected): Prophylaxis New Bag 04/23/2024 9:00 AM EDT 2 g dexAMETHasone (Decadron) injection Intravenous, PRN, Starting on Fri04/23/24 at 0855, Until Fri04/23/24 at 1121, Anesthesia Intra-op, Routine Given 04/23/2024 8:55 AM EDT 8 mg dexmedeTOMIDine (Precedex) (4 mcg/mL) bolus injection (Anesthsia) Intravenous, PRN, Starting on Fri04/23/24 at 1033, Until Fri04/23/24 at 1121, Anesthesia Intra-op, Routine Given 04/23/2024 10:55 AM EDT 4 mcg Given 04/23/2024 10:45 AM EDT 4 mcg Given 04/23/2024 10:33 AM EDT 4 mcg fentaNYL (pf) (50 mcg/mL) multi-dose injection Intravenous, PRN, Starting on Fri04/23/24 at 0914, Until Fri04/23/24 at 1121, Anesthesia Intra-op, Routine Given 04/23/2024 9:59 AM EDT 50 mcg Given 04/23/2024 9:14 AM EDT 50 mcg glycopyrrolate (Robinul) (0.2 mg/mL) multi-dose injection Intravenous, PRN, Starting on Fri04/23/24 at 1049, Until Fri04/23/24 at 1121, Anesthesia Intra-op, Routine Given 04/23/2024 10:49 AM EDT 0.4 mg ketorolac (Toradol) (30 mg/mL) injection Intravenous, PRN, Starting on Fri04/23/24 at 1049, Until Fri04/23/24 at 1121, Anesthesia Intra-op, Routine Given 04/23/2024 10:49 AM EDT 15 mg lactated ringers infusion 1,000 mL, at 100 mL/hr, Intravenous, CONTINUOUS, Starting on Fri04/23/24 at 0800, Until Fri04/23/24 at 1125, Day of Surgery (Day of Procedure) New Bag 04/23/2024 8:21 AM EDT lactated ringers infusion Intravenous, CONTINUOUS PRN, Starting on Fri04/23/24 at 0929, Until Fri04/23/24 at 1121, Anesthesia Intra-op New Bag 04/23/2024 9:29 AM EDT lidocaine (pf) (Xylocaine) (20 mg/mL) 2% injection syringe Intravenous, PRN, Starting on Fri04/23/24 at 0844, Until Fri04/23/24 at 1121, Anesthesia Intra-op, Routine Given 04/23/2024 8:44 AM EDT 20 mg lidocaine (XYLOCAINE) 4 % external solution Intratracheal, PRN, Starting on Fri04/23/24 at 0847, Until Fri04/23/24 at 1121, Anesthesia Intra-op Given 04/23/2024 8:47 AM EDT 2 mLs metroNIDAZOLE (Flagyl) 500 mg in sodium chloride 0.9% 100 mL infusion 500 mg, Intravenous, ONCE, 1 dose, On Fri04/23/24 at 0815, Administer over 30 Minutes, Power Tool Repair Technician to OR Infuse over 30 minutes., Day of Surgery (Day of Procedure), Indication for (Active or Suspected): Prophylaxis Given 04/23/2024 8:54 AM EDT 500 mg midazolam (pf) (Versed) (1 mg/mL) multi-dose injection Intravenous, PRN, Starting on Fri04/23/24 at 0831, Until Fri04/23/24 at 1121, Anesthesia Intra-op, Routine Given 04/23/2024 8:31 AM EDT 1 mg neostigmine (Bloxiver) (1 mg/mL) injection Intravenous, PRN, Starting on Fri04/23/24 at 1049, Until Fri04/23/24 at 1121, Anesthesia Intra-op, Routine Given 04/23/2024 10:49 AM EDT 4 mg ondansetron (pf) (Zofran) (2 mg/mL) injection Intravenous, PRN, Starting on Fri04/23/24 at 1049, Until Fri04/23/24 at 1121, Anesthesia Intra-op, Routine Given 04/23/2024 10:49 AM EDT 8 mg PHENYLephrine in NS (PF) (MARV-SYNEPHRINE) 0.8 mg/10 mL (80 mcg/mL) multi-dose injection Syringe Intravenous, PRN, Starting on Fri04/23/24 at 0844, Until Fri04/23/24 at 1121, Anesthesia Intra-op, Routine Given 04/23/2024 8:44 AM EDT 80 mcg propofoL (Diprivan) (10 mg/mL) infusion Intravenous, CONTINUOUS PRN, Starting on Fri04/23/24 at 0844, Until Fri04/23/24 at 1121, Anesthesia Intra-op, Routine Rate/Dose Change 04/23/2024 8:48 AM EDT 50 mcg/kg/min 18.27 mL/hr New Bag 04/23/2024 8:44 AM EDT 200 mcg/kg/min 73.08 mL/ hr propofoL (Diprivan) 10 mg/mL bolus injection (Anesthesia) Intravenous, PRN, Starting on Fri04/23/24 at 0844, Until Fri04/23/24 at 1121, Anesthesia Intra-op Given 04/23/2024 9:59 AM EDT 20 mg Given 04/23/2024 8:46 AM EDT 30 mg Given 04/23/2024 8:44 AM EDT 120 mg rocuronium (Zemuron) (10 mg/mL) multi-dose injection Intravenous, PRN, Starting on Fri04/23/24 at 0844, Until Fri04/23/24 at 1121, Anesthesia Intra-op, Routine Given 04/23/2024 9:59 AM EDT 10 mg Given 04/23/2024 8:44 AM EDT 50 mg documented in this encounter Care Teams Dog Beautician Relationship Specialty Start Date End Date Dorita Zimmerman APRN PCP - General Family Medicine 04/27/22 09/08/24 documented as of this encounter
--- OUTSIDE RECORDS SUMMARY | 2024-10-20 17:31 | XMS_ITS | Encounter Summary ---
Author Organization [facility] Address [facility] [place] [address] Care Team Providers Care Medical Dermatologist Name Role Phone Dorita Zimmerman APRN Primary Care Provider [phone] Reason for Visit * Reason Comments Post Hospital Discharge Encounter Details Date Type Department Care Team (Late st Contact Info) Description 05/24/2024 1:20 PM EDT Office Visit [place] [address] Aleah Kuo MD [facility] [place] [address] Post-operative state Social History Tobacco Use Types Packs/Day Years Used Date Smoking Tobacco: Former Cigarettes 2002 Smokeless Tobacco: Never Alcohol Use Standard Drinks/Week Comments Never 0 (1 standard drink = 0.6 oz pur e alcohol) [facility] Utilities Answer Date Recorded In the past 12 months has [employer], gas, oil, or water [email or web address] threatened to shut off services in your [...] any time in the [facility] or living in a senior living (including now)? No 05/06/2024 IPV Inpatient Questions [...] Sign Reading Time Taken Comments Blood Pressure 106/49 05/24/2024 1:10 PM EDT Pulse 57 05/24/2024 1:10 PM EDT Temperature 37.1 ??C (98.8 ??F) 05/24/2024 1:10 PM ED T Respiratory Rate 20 05/24/2024 1:10 PM EDT Oxygen Saturation 100% 05/24/2024 1:10 PM EDT Inhaled Oxygen Concentration - - Weight 81.6 kg (180 lb) 05/24/2024 1:10 PM EDT Height 152.4 cm (5') 05/24/2024 1:10 PM EDT Body Mass Index 35.15 05/24/2024 1:10 PM EDT documented in this encounter Progress Notes * Aleah Kuo MD - 05/24/2024 1:20 PM EDT [place] [address] Postoperative Visit: Patient Active Problem List Diagnosis Code Right occipital hemorrhage with associated vassogenic edema, anticoagulation associated, 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 On 04/23/24 she underwenta TLH, BSO . 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 She is home now. She does feel she iscontinuing to recover from her stroke. She has follow up with neurology. She has stopped taking narcotic pain medications and is having regular bowel movements. Her energy level is improving and she is eating well. She denies fevers, chills, dysuria, incisional concerns, abdominal pain, vaginal bleeding, nausea, vomiting or diarrhea. Objective: Vitals: 05/24/24 1310 BP: 106/49 Patient Position: Sitting Pulse: 57 Resp: 20 Temp: 37.1 ??C (98.8 ??F) TempSrc: Temporal SpO2: 100% Weight: 81.6 kg (180 lb) Height: 152.4 cm (5') Body mass index is 35.15 kg/m??. Body surface area is 1.86 meters squared. Physical Exam Skin: Comments: Incisions well healed Surgical Pathology: Surgical Pathology DIAGNOSIS Uterus, cervix, bilateral fallopian tubes and ovaries, hysterectomy and bilateral salpingo- oophorectomy: - Benign cervix. - Benign inactive endometrium with submucosal leiomyoma. - Benign bilateral ovaries with cortical inclusion cysts. - Benign bilateral fallopian tubes with paratubal cysts. Electronically signed by: Kymberly Keller DO Verified: 04/29/2024 11:07 Pathologist Performed at: -[facility] [place] Dept. of Pathology, [place] [id number] Yarn Carrier: June Gilman MD, FCAP, [place] Certificate: [id number] Assessment and Plan: Lucero Arthur is a 74 y.o. with benign PMB and thickened EMS. She is doing well postoperativelyand is advised that she may resume full activities at 6 weeks postoperatively. I reviewed her pathology with her and have given her copies of her pathology report and operative note for her records. Given the benign nature of her disease, she thankfully does not require any further gynecologic oncology care and is kindly referred back to her usual providers for ongoing care. ALEAH KUO MD documented in this encounter Plan of Treatment Upcoming Encounters Date Type Department Care Team (Late st Contact Info) Description 11/04/2024 11:15 AM EST Appointment Non-Invasive Cardiology Lab [place] [address] 11/10/2024 8:00 AM EST Office Visit Neurology at [place] [address] Clarisse Duke APRN [facility] [place] [address] 11/15/2024 10:[address] Scan at [place] [address] Karli Morales MD [facility] [place] [address] 11/15/2024 11:20 AM EST Office Visit Neurosurgery at [address] Marvin Kimball PA [facility] [place] [address] 12/15/2024 4:40 PM EST TH Visit (TeleHealth) [place] [address] Duane Causey MD [facility] [place] [address] documented as of this encounter Visit Diagnoses Diagnosis Post-operative state Other postprocedural status documented in this encounter Care Teams Medical Dermatologist Relationship Specialty Start Date End Date Dorita Zimmerman APRN PCP - General Family Medicine 04/27/22 09/08/24 documented as of this encounter
--- OUTSIDE RECORDS SUMMARY | 2024-10-20 17:31 | XMS_ITS | Encounter Summary ---
Author Organization [facility] [place] [address] Care Team Providers Care Farm Facility Manager Name Role Phone Dorita Zimmerman SUPERVISOR MACHINING Primary Care Provider [phone] Encounter Details Date Type Department Care Team (Late st Contact Info) Description 05/31/2024 Cardiology Conference Cardiology at [address] [phone] Margie Meyer Social History Tobacco Use Types Packs/Day Years Used Date Smoking Tobacco: Former Cigarettes 973 2002 Smokeless Tobacco: Never Alcohol Use Standard Drinks/Week Comments Never 0 (1 standard drink = 0.6 oz pur e alcohol) [facility] Utilities Answer Date Recorded In the [...] place to sleep or slept in a mcc (including now)? No 03/03/2024 Housing Stability Vital Sign Answer Salvador e Recorded In the last 12 months, was t here a time when you were not able to pay the mortgage or rent on time? No 05/06/2024 In the past 12 months, how m any times have you moved where you were living? 1 05/06/2024 At any time in the past 12 m [facility], were you homeless or living in a mcc (including now)? No 05/06/2024 IPV Inpatient Questions [...] 11:15 AM EST Appointment Non-Invasive [place] [phone] 11/10/2024 8:00 AM EST Office [place] [phone] Clarisse Duke APRN [facility] [place] [address] 11/15/2024 10:[address] [place] [phone] Karli Morales MD [facility] [place] [address] 11/15/2024 11:20 AM EST Office Visit Neurosurgery at [place] [phone] Marvin Kimball PA [facility] [place] [address] 12/15/2024 4:40 PM EST TH Visit (TeleHealth) Cardiology at [address] [phone] Duane Causey MD [facility] [place] [address] documented as of this encounter Visit Diagnoses Not on filedocumented in this encounter Care Teams Farm Facility Manager Relationship Specialty Start Date End Date Dorita Zimmerman APRN PCP - General Family Medicine 04/27/22 09/08/24 documented as of this encounter
--- OUTSIDE RECORDS SUMMARY | 2024-10-20 17:31 | XMS_ITS | Encounter Summary ---
Author Organization Formerly [facility] Address [facility] [place] [address] Care Team Providers Care Criminal Records Technician Name Role Phone SohailDorita mccurdy Yajaira RAMOS Primary Care Provider [phone] Reason for Referral * Diagnostic Test (Routine) - Closed Specialty Diagnoses / Procedures Referred By Aicha beckwith Referred To Contact Cardiology Diagnoses Atrial fibrillation, unspecified type Procedures Transesophageal Echocardiogram (MONICA) Duane Causey MD [facility] [address] [facility] [place] [address] Referral ID Status Reason Start Date Expiration Date V isits Requested Visits Authorized [id number] Closed Specialty Service Requested 08/03/2024 08/03/2025 1 1 Encounter Details Date Type Department Care Team (Late st Contact Info) Description 08/02/2024 Orders Only Cardiology at [address] [phone] Duane Causey MD [facility] [address] Atrial fibrillation, unspecified type Social History Tobacco Use Types Packs/Day Years Used Date Smoking Tobacco: Former Cigarettes 2 30 1 - 2002 Smokeless Tobacco: Never Alcohol Use Standard Drinks/Week Comments Never 0 (1 standard drink = 0.6 oz pur e alcohol) [facility] Utilities Answer Date Recorded In the [...] place to sleep or slept in a penitentiary (including now)? No 03/03/2024 Housing Stability Vital Sign Answer Salvador e Recorded In the last 12 months, was t here a time when you were not able to pay the mortgage or rent on time? No 05/06/2024 In the past 12 months, how m any times have you moved where you were living? 1 05/06/2024 At any time in the past 12 m [facility], were you homeless or living in a penitentiary (including now)? No 05/06/2024 DH IPV Inpatient [...] 11:15 AM EST Appointment Non-Invasive Cardiology Lab [place] [address] 11/10/2024 8:00 AM EST Office Visit Neurology at [place] [address] Clarisse Duke APRN [facility] [place] [address] 11/15/2024 10:[address] Scan [place] [address] Karli Morales MD [facility] [place] [address] 11/15/2024 11:20 AM EST Office Visit Neurosurgery at [place] [address] Marvin Kimball PA [facility] [place] [address] 12/15/2024 4:40 PM EST TH Visit (TeleHealth) Cardiology at [address] Duane Causey MD [facility] [place] [address] documented as of this encounter Results * EKG 12 Lead (09/28/2024 3:59 AM EST) Ventricular rate 104 BPM MUSE SYSTEM Atrial Rate 104 BPM MUSE SYSTEM P-R Interval 138 ms MUSE SYSTEM QRS Duration 64 ms MUSE SYSTEM Q-T Interval 342 ms MUSE SYSTEM QTC Calculated (Bezet) 449 ms MUSE SYSTEM Calculated P Altheimer 44 degrees MUSE SYSTEM Calculated R Altheimer -22 degrees MUSE SYSTEM Calculated T Altheimer 34 degrees MUSE SYSTEM INTERPRETATION Sinus tachycardia with Premature atrial complexes Low voltage QRS Cannot rule out Anterior infarct , age undetermined Abnormal ECG When compared with ECG of 16-SEP-2024 15:33, Premature atrial complexes are now Present Confirmed by MD Jose L, Abdiel ([id number]) on 09/28/2024 2:49:44 PM MUSE SYSTEM 09/28/2024 3:59 AM EST 09/28/2024 2:49 PM EST Nasir Stovall APRN ECG ORDERABLES MUSE SYSTEM * MONICA W LMTD SPECTRAL DOPPLER COLOR DOPPLER (09/16/2024 3:03 PM EDT) Anatomical Region Laterality Modality Cardiac Other 09/16/2024 1:44 PM EDT Narrative 09/16/2024 3:58 PM EDT ? Transesophageal Echocardiogram Report Name: KATINA BRUNO ? Study Date: 09/16/2024 01:44 PM ?Patient Location: ^CA06^A : 1950 ? Account: [id number] Age: 74 yrs Gender: Female Ordering Physician: NASIR STOVALL Referring Physician: Duane Causey Interpretation Summary Study performed for guidance of Watchman. PRE: No left atrial thrombus. The appendage orifice measured 21 x 16 mm by 3D assessmnent. No PFO. Lipomatous septal hypertrophy. Pericardial fat pad with no pericardial effusion. POST: Watchman well seated without manasa-device leak. See images for compression measurements. No change in appearance of pericardium. Single atrial septostomy with omqk-ce-jzvsj flow. See report for additional findings. Procedure [...] is a single atrial septostomy site present. Ukbw-mv-lihao flow is present. The appendage orifice measured [...] MD - 09/16/2024 Transesophageal Echocardiogram Report Name: KATINA BRUNO Study Date: 09/16/2024 01:44 PM Patient Location: ^CA06^A : 1950 Account:[id number] Age: 74 yrs Gender: Female Ordering Physician: NASIR STOVALL Referring Physician: Duane Causey Interpretation Summary Study performed for guidance of Watchman. PRE: No left atrial thrombus. The appendage orifice measured 21 x 16 mm by3D assessmnent. No PFO. Lipomatous septal hypertrophy. Pericardial fat padwith no pericardial effusion. POST: Watchman well seated without manasa-device leak. See images forcompression measurements. No change in appearance of pericardium. Single atrialseptostomy with pqia-tz-fqyoz flow. See report for additional findings. Procedure [...] is a single atrial septostomy site present. Hslp-sw-vxqqr flow is present.The appendage orifice measured 21 [...] 2D Measurements Ao root diam: 3.0 cm Nasir Stovall APRN ECHO ORDERABLES * (ABNORMAL) Basic Metabolic Panel Fasting required (09/16/2024 10:29 AM EDT) Glucose 111(H) 65 - 99 mg/dL 09/16/2024 11:34 AM [facility] Comment: Fasting Glucose Interpretive Criteria: [...] 8 - 18 mg/dL 09/16/2024 11:34 AM [facility] Creatinine 0.68(L) 0.70 - 1.20 mg/dL 09/16/2024 11:34 AM [facility] Sodium 140 135 - 145 mMol/L 09/16/2024 11:34 AM [facility] Potassium 4.3 3.5 - 5.0 mMol/L 09/16/2024 11:34 AM [facility] Chloride 104 98 - 107 mMol/L 09/16/2024 11:34 AM [facility] Carbon Dioxide 27 22 - 31 mMol/L 09/16/2024 11:34 AM [facility] Anion Gap 9 5 - 15 mMol/L 09/16/2024 11:34 AM EDT [facility] Calcium 9.5 8.5 - 10.5 mg/dL 09/16/2024 11:34 AM EDT [facility] Est Glomerular Filtration Rate - Female 93 mL/min/1. 73 m?? 09/16/2024 11:34 AM EDT [facility] Comment: This patient's estimated [...] Foundation Fasting Status Yes 09/16/2024 11:34 AM T [facility] Blood VENOUS BLOOD SPECIMEN / Unknown Venipuncture / Unknown 09/16/2024 10:29 AM EDT 09/16/2024 10:29 AM EDT Nasir Stovall APRN CHEMISTRY ORDERABL ES [facility] [place] [address] * (ABNORMAL) CBC (with Diff) (09/16/2024 10:29 AM EDT) White Blood Cell 9.46 4.00 - 9.50 x10(3)/mc L 09/16/2024 10:55 AM EDT [facility] Red Blood Cell 5.04 4.00 - 5.21 x10(6)/mc L 09/16/2024 10:55 AM EDT [facility] Hemoglobin 14.7 11.7 - 15.5 g/dL 09/16/2024 10:55 AM EDT [facility] Hematocrit 45.6 35.7 - 45.8 % 09/16/2024 10:55 AM [facility] Mean Cell Volume 90.5 82.6 - 94.4 fL 09/16/2024 10:55 AM [facility] Mean Cell Hemoglobin 29.2 27.1 - 32.0 pg 09/16/2024 10:55 AM [facility] Mean Cell Hemoglobin Concentration 32.2 31.7 - 35.0 g/dL 09/16/2024 10:55 AM [facility] Platelet 311 145 - 357 x10(3)/mc L 09/16/2024 10:55 AM [facility] Mean Platelet Volume 10.2 7.6 - 12.9 fL 09/16/2024 10:55 AM [facility] RDW Standard Deviation 40.2 37.0 - 46.0 fL 09/16/2024 10:55 AM [facility] RDW coefficient of variation 12.2 11.5 - 14.1 % 09/16/2024 10:55 AM [facility] NRBC% auto 0.0 % 09/16/2024 10:55 AM [facility] NRBC Absolute <0.01 <0.01 x10(3)/mc L 09/16/2024 10:55 AM [facility] Neutrophil % 68.0 % 09/16/2024 10:55 AM [facility] Neutrophil Absolute (ANC) - Automated 6.43(H) 1.70 - 6.10 x10(3)/mc L 09/16/2024 10:55 AM [facility] Lymph % 22.1 % 09/16/2024 10:55 AM [facility] Lymph Absolute 2.09 0.90 - 3.20 x10(3)/mc L 09/16/2024 10:55 AM [facility] Monocyte % 7.0 % 09/16/2024 10:55 AM EDT [facility] Monocyte Absolute 0.66 0.30 - 0.90 x10(3)/mc L 09/16/2024 10:55 AM EDT [facility] Eos % 2.1 % 09/16/2024 10:55 AM EDT [facility] Eos Absolute 0.20 0.00 - 0.40 x10(3)/mc L 09/16/2024 10:55 AM EDT [facility] Basophil % 0.4 % 09/16/2024 10:55 AM EDT [facility] Baso Absolute 0.04 0.00 - 0.10 x10(3)/mc L 09/16/2024 10:55 AM EDT [facility] Immature Gran % 0.4 % 10:55 AM EDT [facility] Immature Gran Absolute 0.04 0.00 - 0.04 x10(3)/mc L 09/16/2024 10:55 AM EDT [facility] Blood VENOUS BLOOD SPECIMEN / Unknown Venipuncture / Unknown 09/16/2024 10:29 AM EDT 09/16/2024 10:29 AM EDT Nasir Stovall [employer] ARCHITECT HEMATOLOGY ORDERAB LES [facility] [place] [address] * Type and Screen Future Surgery, [facility] SAME DAY PROGRAM ONLY) (09/16/2024 10:29 AM EDT) PATIENT HISTORY Found 09/16/2024 12:02 PM EDT [facility] Expires at 0026 on: 09-19-2024 09/16/2024 12:02 PM EDT [facility] ABORH Type O POSITIVE 09/16/2024 12:02 PM EDT [facility] ANTIBODY SCREEN AUTOMATED Negative 09/16/2024 12:02 PM EDT [facility] T&S only valid at [facility] 09/16/2024 12:02 PM EDT [facility] Blood VENOUS BLOOD SPECIMEN / Unknown Venipuncture / Unknown 09/16/2024 10:29 AM EDT 09/16/2024 10:29 AM EDT Narrative [facility] - 09/16/2024 12:02 PM EDT This Type and Screen result is only valid at the [facility] Nasir Stovall APRN BLOOD BANK LAB ORD ERABLES [facility] [place] [place] [address] documented in this encounter Visit Diagnoses Diagnosis Atrial fibrillation, unspecified type documented in this encounter Care Teams Criminal Records Technician Relationship Specialty Start Date End Date Dorita Zimmerman APRN PCP - General Family Medicine 04/27/22 09/08/24 documented as of this encounter
--- OUTSIDE RECORDS SUMMARY | 2024-10-20 17:31 | XMS_ITS | Encounter Summary ---
Author Organization [facility] [place] [address] Care Team Providers Care Health Program Specialist Name Role Phone Dorita Zimmerman TOOL FILER HAND Primary Care Provider [phone] Encounter Details Date Type Department Care Team (Late st Contact Info) Description 05/11/2024 Notes Only Cardiology at [address] [phone] Shraddha Pichardo RN Social History Tobacco Use Types Packs/Day Years Used Date Smoking Tobacco: Former Cigarettes 2 30 973 - 2002 Smokeless Tobacco: Never Alcohol Use Standard Drinks/Week Comments Never 0 (1 standard drink = 0.6 oz pur e alcohol) [facility] Utilities Answer Date Recorded In the [...] living in a detention (including now)? No 05/06/2024 DH IPV Inpatient [...] Progress Notes * Shraddha Pichardo RN - 05/11/2024 11:31 AM EDT Ms. Arthur is a 74 year old female who presents with atrial fibrillation and is referred by ADRIANA Garcia for consideration of left atrial appendage closure options. Please refer to recent clinic notes for a detailed history and assessment. In brief, the patient has has a recent IPH and is seeking out nonpharmacologic ways to manage stroke risk in a-fib. Her history includes the following:PAF< right occipital IPH, HLD, CHRISTOPHER, GERD, prediabetes, essential termor, and asthma. [id number] VASc: 4 ( stroke, age, female) HAS-BLED: 3 (stroke, bleeding, age) Antiplatelet/anticoagulation: none Plan: schedule clinic with diagnostics following MD assessment. documented in this encounter Plan of Treatment Upcoming Encounters Date Type Department Care Team (Late st Contact Info) Description 11/04/2024 11:15 AM EST Appointment Non-Invasive Cardiology Lab [place] [address] 11/10/2024 8:00 AM EST Office Visit Neurology at [place] [address] Clarisse Duke APRN [facility] [place] [address] 11/15/2024 10:[address] Scan [place] [address] Karli Morales MD [facility] [place] [address] 11/15/2024 11:20 AM EST Office Visit Neurosurgery at [place] [address] Marvin Kimball, ADRIANA [facility] [place] [address] 12/15/2024 4:40 PM EST TH Visit (TeleHealth) Cardiology at [place] [address] Duane Causey MD [facility] [place] [address] documented as of this encounter Visit Diagnoses Not on filedocumented in this encounter Care Teams Health Program Specialist Relationship Specialty Start Date End Date Dorita Zimmerman APRN PCP - General Family Medicine 04/27/22 09/08/24 documented as of this encounter
--- OUTSIDE RECORDS SUMMARY | 2024-10-20 17:31 | XMS_ITS | Encounter Summary ---
Author Organization [facility] [place] [address] Care Team Providers Care Metal Control Coordinator Name Role Phone Dorita Zimmerman APRN Primary Care Provider [phone] Encounter Details Date Type Department Care Team (Late st Contact Info) Description 05/28/2024 Cardiology Conference Cardiology at [address] [phone] Shraddha Pichardo RN Social History Tobacco Use Types Packs/Day Years Used Date Smoking Tobacco: Former Cigarettes 2 30 973 - 2002 Smokeless Tobacco: Never Alcohol Use Standard Drinks/Week Comments Never 0 (1 standard drink = 0.6 oz pur e alcohol) [facility] Utilities Answer Date Recorded In the [...] time in the past 12 m [facility], were you homeless or living in a [...] 11:15 AM EST Appointment Non-[place] [address] 11/10/2024 8:00 AM EST [place] [phone] Clarisse Duke APRN [facility] [place] [address] 11/15/2024 10:[address] [place] [place] [phone] Karli Morales MD [facility] [address] 11/15/2024 11:20 AM EST Office Visit Neurosurgery at [place] [phone] Marvin Kimball PA [facility] [place] [address] 12/15/2024 4:40 PM EST TH Visit (TeleHealth) Cardiology at [place] [phone] Duane Causey MD [facility] [place] [address] documented as of this encounter Visit Diagnoses Not on filedocumented in this encounter Care Teams Metal Control Coordinator Relationship Specialty Start Date End Date Dorita Zimmerman APRN PCP - General Family Medicine 04/27/22 09/08/24 documented as of this encounter
--- OUTSIDE RECORDS SUMMARY | 2024-10-20 17:31 | XMS_ITS | Encounter Summary ---
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 Consideration of Ravi Sneed PA [facility] [place] [address] Arie Orozco MD [facility] [place] [address] Referral ID Status Reason Start Date Expiration Date V isits Requested Visits Authorized [id number] Closed Consult, Test & Treat 05/08/2024 05/08/2025 1 1 Reason for Visit * Auth/Cert (Routine) Specialty Diagnoses / Procedures Referred By Contac t Referred To Contact Diagnoses Intracranial hemorrhage occipital bleed Gissell Velazco MD [facility] [place] [address] [facility] Referral ID Status Reason Start Date Expiration Date Visits Re quested Visits Authorized [id number] 1 1 Encounter Details Date Type Department Care Team (Latest Contact Info) Description 05/06/2024 1:39 AM EDT - 05/08/2024 3:59 PM EDT Hospital Encounter Neuro Special Care Unit Level 3 [place] [id number] Teresa Ruiz MD [facility] [place] [place] [address] Gissell Velazco MD [facility] [place] [address] Intracranial hemorrhage; Chest pain, unspecified type; PAF (paroxysmal atrial fibrillation); Right occipital hemorrhage, anticoagulation associated, 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 Discharge Disposition: Correction Facility Social History Tobacco Use Types Packs/Day Years Used Date Smoking Tobacco: Former Cigarettes 2002 Smokeless Tobacco: Never Alcohol Use Standard Drinks/Week Comments Never 0 (1 standard drink = 0.6 oz pur e alcohol) [facility] Utilities Answer Date Recorded In the past 12 months has th e [employer], gas, oil, or water [employer] threatened to shut off services in your [...] to sleep or slept in a senior care (including now)? No 03/03/2024 Housing Stability Vital Sign Answer Salvador e Recorded In the last 12 months, was t here a time when you were not able to pay the mortgage or rent on time? No 05/06/2024 In the past 12 months, how m any times have you moved where you were living? 1 05/06/2024 At any time in the past 12 m [facility], were you homeless or living in a senior care (including now)? No 05/06/2024 DH IPV Inpatient [...] Sign Reading Time Taken Comments Blood Pressure 132/76 05/08/2024 11:15 AM EDT Pulse 82 05/08/2024 11:15 AM EDT Temperature 36.7 ??C (98.1 ??F) 05/08/2024 11:15 AM E DT Respiratory Rate 21 05/08/2024 11:15 AM EDT Oxygen Saturation 94% 05/08/2024 11:15 AM EDT Inhaled Oxygen Concentration - - Weight 84.1 kg (185 lb 6.4 oz) 05/08/2024 8:00 A M EDT Height 152.4 cm (5') 05/06/2024 1:48 AM EDT Body Mass Index 36.21 05/06/2024 1:48 AM EDT documented in this encounter Discharge Summaries * Gissell Velazco MD - 05/08/2024 11:48 AM EDT Images from the original note were not included. Discharge Summary Patient Name: Katina Arthur Patient Age: 74 y.o. Language: Romanian Admit date: 05/06/2024 Discharge date and time: 05/08/2412:19 PM Attending Physician: Gissell Velazco MD Discharge Physician: Gissell Velazco MD Follow-up Recommendations for Providers: - if clinically stable and blood pressure controlled, recommend starting aspirin in two weeks (05/23) for secondary stroke prevention in afib -blood pressure target normotension -anticoagulation contraindicated and likely unsafe to resume in the future, probable cerebral amyloid angiopathy -referred to structural heart team for consideration of left atrial appendage closure -consider referral to [facility] if vision does notimprove -follow-up appointment in stroke clinic was requested day of discharge Inpatient Provider Contact Information: For questions regarding this document or issues related to this hospitalization on the Neurology Service, please contact . Discharge Diagnoses: Active Hospital Problems Diagnosis Right occipital hemorrhage with associated vassogenic edema, anticoagulation associated, probableCAA Chronic atrial fibrillation Past medical History: Past Medical History: Diagnosis Date Irregular heart beat Obstructive sleep apnea Active Non Hospital Problems: There are no active non-hospital problems to display for this patient. History of Presentation: Katina Arthur is a 74 y.o. female with PMHx of Afib on apixaban, CHRISTOPHER(not on CPAP), HLD, BMI of 36, who presents to OSH ED for evaluation of acute onset severe headache 2 days prior associated with nausea and vomiting as well as vision changes. Found to have R occipital IPH wo intraventricular extension or shift, s/p AC reversal at OSH, Transferred to [facility] for further management of IPH. She states having a sudden onset headache on Friday after awakening. The headache was associated with nausea and vomiting as well as vision changes. Given the lack of improvement in her headache she presented to OSH ED for evaluation. CTH at OSH showed R occipital IPH and she received aPCC for reversal of apixaban. After being given Tylenol and Fentanyl, she noticed marked improvement in her headache severity, decreasing from a 10/10 to 5/10 in severity. She was however continuing to endorse mild-moderate headache as well as left visual field deficits. Home medications include Apixaban 5mg BID, D3, Diltiazem and Lovastatin. BP at OSH noted to be 157/65 at the time of teleneuro evaluation by Dr. Dominguez. At that time NIHSS of 2 for complete hemianopia. At that time it was recommended to transfer patient to NICU for closer observation and monitoring. Neurosurgery was also consulted who did not believe there was any r ole for surgical intervention at this time. At the time of my assessment upon arrival to [facility] patient is laying in bed and does not appear to be in any acute distress. She is able to confirm the above history. She continues to endorse a headache with left visual field deficits. She is not currently experiencing nausea or vomiting. She confirms no history of falls or brain trauma, HTN, prior stroke/TIA, seizures. She does not smoke currently and has not smoked in twenty years. Denies recreational drug use. On history review she states got up Friday morning and she had a severe headache which lasted for three days. She doesn't not know if the headache woke her but it was present on awakening. She had onand off nausea and two episodes on vomiting. She also noticed that when she layed down her headachegot much worse. She also remembers starting ti have some vision changes on Friday as the day progressed it gradually got worse where she can't see left side of her vision. She also states she noticedher vision changes because she wasn't able to read the words on the left and then it got dark on the left side. She endorses a history of skin cancer (SCC) s/p removal.. No known history of vascular abnormalities. Admission NIH Stroke Scale: NIH Stroke Scale Date 05/06/24 NIH Stroke Scale Time 0230 Level of Consciousness 0 LOC Questions 0 LOC Commands 0 Best Gaze 0 Vision 2 Facial Palsy 0 Motor Arm, Left 0 Motor Arm, Right 0 Motor Leg, Left 0 Motor Leg, Right 0 Limb Ataxia 0 Sensory 0 Best Language 0 Dysarthria 0 Extinction and Inattention: 0 NIH Total Score 2 Hospital Course: Katina Arthur is a 74 y.o. female who was admitted to the neurology service for further evaluation of acute onset severe headache 2 days prior associated with nausea and vomiting as well as vision changes. Found to have R occipital IPH wo intraventricular extension or shift, s/p AC reversal at OSH, Transferred to [facility] for further management of IPH. # Hemorrhagic Stroke Neurological examination on admission was pertinent for some confusion and complete left visual field cut. Patient was monitored with frequent checks of vitals and neurological status. Telemetry monitoring showed NSR, no episodes of pAF this admission. Blood pressure was closely monitored and treated if needed with labetalol, enalaprilat, or nicardipine to maintain SBP<150. MRI demonstrated right occipital hemorrhage with intraventricular extension, surrounding edema and sulcal effacement, but without significant compression or hydrocephalus. MRI also showed multiple chronic microhemorrhages and hemosiderin staining consistent with cerebral amyloid angiopathy. No mass or underlying vascular abnormality was identified. TTE revealed EF 75%, no LV WMAs. See detailed reports as below. Mostlikely etiology of hemorrhage was cerebral amyloid angiopathy associated with anticoagulation use. Statin was discontinued due associated bleeding risk in CAA. She was continued on home diltiazem for her paroxysmal afib and no adjustments to rate control wereneeded. Other continued home meds included calcium and vitamin D for osteoporosis, tramadol prn forchronic neck/back pain. Day of discharge her headaches had resolved and she denied new complaints. Surveillance CT head revealed stable size of her intraparenchymal hematoma. Patient was evaluated by rehabilitation services and deemed appropriate for acute rehab. Operations & Procedures: none Consultations: 1. PT/OT/SL Diagnostic Tests & Neuroimaging: Study Results ECG Results for orders placed or performed during the hospital encounter of 05/06/24 EKG 12 Lead Result Value Ref Range Ventricular rate 83 BPM Atrial Rate 83 BPM P-R Interval 166 ms QRS Duration 64 ms Q-T Interval 340 ms QTC Calculated (Bezet) 399 ms Calculated P [place] 31 degrees Calculated R [place] -39 degrees Calculated T [place] 29 degrees INTERPRETATION Normal sinus rhythm Left axis deviation No previous ECGs available I personally reviewed the tracing and edited the fellows interpretation Confirmed by fellow Roney Ashby ([id number]) on 05/06/2024 3:42:55 PM Confirmed by MD RICHARDS SALVATORE ([id number]) on 05/06/2024 4:33:11 PM CXR No results found. CT Head CT Head wo Contrast (Generic) Result Date: 05/08/2024 No significant interval change. Thank you for letting us participate in the care of this patient. If you are a health care provider and have any questions regarding this report, please contact the number below. For patients who have questions please contact the health health care liaison that requested your imaging first. Electronically signed by: Celeste Ramos MD, [facility] ([phone]), at 05/08/2024 11:[address] Head wo Contrast (Generic) Result Date: 05/07/2024 Slightly decreased size of the evolving right occipital parenchymal hematoma with similar vasogenicedema and local mass-effect. Thank you for letting us participate in the care of this patient. If you are a health care provider and have any questions regarding this report, please contact the number below. For patients who have questions please contact the health health care liaison that requested your imaging first. Electronically signed by: Padmaja Acuna MD, [facility] ([phone]), at 05/07/2024 1:[address] Head wo Contrast (Generic) Result Date: 05/06/2024 Mildly increased size of right occipital hematoma, without associated contrast extravasation, or associated abnormal vascularity noted. Mild luminal irregularity and ectasia of the distal cervical ICA on the right side without accompanying atherosclerotic plaque or dissection flap. Otherwise negative CTA of the head and neck. Thank you for letting us participate in the care of this patient. If you are a health care provider and have any questions regarding this report, please contact the numberbelow. For patients who have questions please contact the health health care liaison that requested your imaging first. Electronically signed by: Elvin Bolden DO, [facility] ([phone]), at 05/06/2024 9:05 AM MRA Head and Neck No results found. MRI BRAIN MRI Brain wwo Contrast (Generic) Result Date: 05/07/2024 1. New 1.6 cm hemorrhagic anterior to grossly stable 4.2cm right occipital hemorrhage with intraventricular extension with mild surrounding edema and sulcal effacement. 2. Multiple right parieto-occipital and posterior temporal cortical/subcortical microhemorrhages and chronic right anterior frontal subcortical hemosiderin staining. 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 3. No enhancing mass or vascular malformation. Thank you for letting us participate in the care of this patient. If you are a health care provider and have any questions regarding this report, please contact the number below. For patients who have questions please contact the health health care liaison that requested your imaging first. Electronically signed by: Smiley Cordova MD, [facility] ([phone]), at 05/07/2024 8:48 AM CTA [place]otids/[place] CT Angiogram Carotids & [place] Result Date: 05/06/2024 Mildly increased size of right occipital hematoma, without associated contrast extravasation, or associated abnormal vascularity noted. Mild luminal irregularity and ectasia of the distal cervical ICA on the right side without accompanying atherosclerotic plaque or dissection flap. Otherwise negative CTA of the head and neck. Thank you for letting us participate in the care of this patient. If you are a health care provider and have any questions regarding this report, please contact the numberbelow. For patients who have questions please contact the health health care liaison that requested your imaging first. Electronically signed by: Elvin Bolden DO, [facility] ([phone]), at 05/06/2024 9:05 AM TTE -Left ventricular systolic function is hyperdynamic. The left ventricular ejection fraction is 75% by Ruth's biplane. There are no segmental wall motion abnormalities. -The right ventricle is of normal size. Right ventricular systolic function is normal. -There is aortic valve sclerosis without stenosis. -See report for additional findings. No comparison study is available. Labs: Lipid Panel Lab Results Component Value Date CHLPL 135 05/06/2024 HDL 46 05/06/2024 TRIG 101 05/06/2024 LDLCHOL 69 05/06/2024 Lab Results Component Value Date HA1C 6.0 (H) 05/06/2024 Last 3 wbc, hgb, hct plt Recent Labs 05/08/24 0121 05/07/24 0155 05/06/24 0951 WBC 12.6* 13.3* 11.6* HGB 14.6 13.7 14.9 HCT 41.9 40.3 44.3 PLATELET 246 257 261 Last 3 Lytes Recent Labs 05/08/24 0121 05/07/24 0157 05/06/24 0951 NA 141 139 139 K 4.2 4.2 4.3 CL 105 105 102 CO2 25 25 27 BUN 14 14 13 CREATININE 0.68* 0.68* 0.80 Last 3 LFTs Recent Labs 05/08/24 0121 05/07/24 0157 05/06/24 0951 AST 15 13 16 ALT 14 14 16 ALKPHOS 92 91 97 BILITOT 0.4 0.3 0.4 BILIDIR 0.1 <0.1 -- Last Ca, Mg, Phos Recent Labs 05/08/24 0121 CALCIUM 9.2 PHOS 3.1 MAGNESIUM 0.85 Last 3 Lipids Recent Labs 05/06/24 0548 CHLPL 135 HDL 46 LDLCHOL 69 TRIG 101 Last 3 HgbA1C Recent Labs 05/06/24 0548 HA1C 6.0* Pending Studies and Lab Data: No current labs PT Eval: AM-PAC Mobility 6 Click Completed?: Yes Turning from your back to your side while in a flat bed w/o using handrails?: 3 - A Little Standing up from a chair using your arms (e.g. wheelchair, or bedside commode)?: 3 - A Little Moving from lying on your back to sitting on the side of a flat bed w/o using bedrails?: 3 - A Little Moving to and from a bed to a chair (including a wheelchair): 3 - A Little To walk in hospital room?: 3 - A Little Climbing 3-5 steps with a railing?*: 2 - A Lot Anticipated Discharge Disposition (PT): acute rehabilitation facility OT Eval: How much help from another person does the patient currently need putting on and taking off regularlower body clothing?: 3 - A Little How much help from another person does the patient currently need with bathing (including washing, rinsing, drying)?: 3 - A Little How much help from another person does the patient currently need with toileting, which includes using toilet, bedpan or urinal?: 3 - A Little How much help from another person does the patient currently need putting on and taking off regularupper body clothing?: 3 - A Little How much help from another person does the patient currently need taking care of personal grooming such as brushing teeth?: 3 - A Little How much help from another person does the patient currently need eathing meals?: 3 - A Little Anticipated Discharge Disposition (OT): acute rehabilitation facility 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 Oral motor examination revealed multiple missing teeth without functional impact on speech or swallow function. Aubree completed PO trials of various consistencies without difficulty. Overall, oropharyngeal swallow appears unaffected and functional for continuation of a regular diet. Aubree benefited from use of strategies for visual scanning to identify items on her table. No swallowing intervention is indicated at this time. We will follow up 1-2 more times to discuss visual strategies for reading and other communication-related activities then likely discharge from INDUSTRIAL ENGINEERING TECHNICIAN services given no acute change in status. Diagnosis: Functional oropharyngeal swallow, homonymous hemianopsia impacting reading abilities Vital Signs at Discharge: BP: 109/67, Heart Rate: 96, Temp: 36.6 ??C (97.9 ??F), Resp: 16, BMI (Calculated): 36.59 Height: 152.4 cm (5') (05/06/24 0148) Weight: 84.1 kg (185 lb 6.4 oz) (05/08/24 0800) Physical Exam at Discharge: General: Alert, oriented to self, time, & place. In no acute distress. HEENT: Normocephalic, atraumatic. Anicteric sclerae, normal conjunctivae. Oropharynx clear without lesions. Moist mucous membranes. Neck: Normal range of motion, no lymphadenopathy. Pulmonary: Breathing non-labored with adequate inspiratory effort. Extremities: Warm, well perfused. No cyanosis, clubbing, or edema. Neuro Exam: MS: AAOx4, mild impairment of immediate and delayed recall, clear language, no dysarthria, follows commands CN: PERRL, EOMI, complete L HH Facial sensation intact, trace L facial droop Hearing intact to voice Palate elevates symmetrically, tongue protrudes midline SCM and trap strength intact Motor: Normal bulk and tone. Antigravity strength in all four extremities Sensation: Intact and symmetric to light touch in limbs Coordination: Finger to nose with L arm action tremor (chronic) Heel-greene intact Gait: Ambulated with PT, unable to maintain straight line Discharge NIH Stroke Scale NIH Stroke Scale Date 05/08/24 NIH Stroke Scale Time 1210 Level of Consciousness 0 LOC Questions 0 LOC Commands 0 Best Gaze 0 Vision 2 Facial Palsy 1 Motor Arm, Left 0 Motor Arm, Right 0 Motor Leg, Left 0 Motor Leg, Right 0 Limb Ataxia 0 Sensory 0 Best Language 0 Dysarthria 0 Extinction and Inattention: 0 NIH Total Score 3 Discharge to: Rehab Updated Allergies/ADRs: Allergies Allergen Reactions Oxycodone-Acetaminophen Other (See Comments) Other reaction(s): hallucinations Alendronate Sodium Nausea Only Contact Metal Agent Immunizations Given this Hospitalization: Immunization History Administered Date(s) Administered Influenza Vaccine, Whole 11/11/2008 Moderna Covid-19 Bivalent 6Mths+ (Blue Cap - Age based Dosage) 10/29/2023 Moderna Covid-19 Monovalent 12Yr+ (Patient Services Coordinator 100mcg) 04/16/2022 Discharge Medications: Your Medications Continued medications, unchanged Dose Details acetaminophen 325 [...] by mouth daily. 1 capsule Refills: 0 traMADoL 50 mg tablet Commonly known as: Ultram Take 50 mg by mouth Every 6 hours as needed. 50 mg Refills: 0 STOPPED Medications Eliquis 5 mg tablet Generic drug: apixaban HYDROmorphone 2 mg tablet Commonly known as: Dilaudid lovastatin 40 mg tablet Commonly known as: Mevacor meclizine 25 mg tablet Commonly known as: Antivert SECONDARY STROKE PREVENTION: Preventative measure Antithrombotic Therapy Administered within 2 days of admission?: No Reason for not administering Antithrombotic Therapy by end of Day 2:: Patient has an active bleed Was antithrombotic therapy prescribed at discharge?: No Anticoagulation Therapy Prescribed at Discharge?: No Reason not given (anticoagulant):: Risk for bleeding or discontinued due to bleeding Was statin medication prescribed at discharge?: No Has patient had a cigarette within the last 365 days?: No Education: Patient/caregiver received written stroke discharge instructions/information?Yes The patient/caregiver accepted education on stroke warning signs and symptoms, personal modifiable stroke risk factors, activation of emergency medical systems for stroke, medications prescribed at discharge for stroke, and education on stroke follow-up. Modified [place] Score (MRS) on discharge Score Description 0 [...] nursing care and attention 6 Total Score: 3 Instructions Given to Patient at Discharge: Patient Instructions Patient Instructions: You were admitted to the neurology service at [facility] Your Diagnosis: hemorrhagic stroke, likely due to cerebral amyloid angiopathy -Stop taking apixaban and do not resume -We have referred you to cardiology for consideration of left atrial appendage closure. This procedure can help reduce your risk of stroke in afib. Cerebral amyloid angiopathy is a condition that can increase your risk of recurrent brain bleeds. Unfortunately, there is no treatment or cure for CAA. In order to reduce your risk of future bleeds, it is important to avoid any medications/substances that can decrease the body???s ability to clot. This includes anticoagulants (???blood thinners?? ) as well as antiplatelet agents (aspirin, clopidogrel, ticagrelor, dipyridamole etc). NSAIDs such as ibuprofen and napoxen should be avoided. Tylenol is suggested for headache or other temporary pain control. Alcohol can also impair platelet function and should be avoided. You must not use cigarettesor nicotine from other sources. Do not take statins (cholesterol medication) or SSRIs (usually for anxiety, depression) unless there is a clear indication for their necessity (e.g. Prior heart attack, severe depression). The optimal blood pressure goal is not clear, but a suggested BP target is <130/80. - Work close with your primary care [...] Pressure BP Readings from Last 3 Encounters: 05/08/24 109/67 04/23/24 149/65 03/03/24 129/57 HA1C Lab Results Component Value Date HA1C 6.0 (H) 05/06/2024 Cholesterol Lab Results Component Value Date CHLPL 135 05/06/2024 HDL 46 05/06/2024 TRIG 101 05/06/2024 LDLCHOL 69 05/06/2024 Below is an explanation of each of [...] follow-up appointment in the neurology clinic at [facility]. See below for the appointment [...] may be billed similar to a regular tyit-bq-prye clinic visit. Primary Care Provider: Please follow up with your Primary Care Provider within one to 2 weeks of discharge. For questions regarding this document or issues relating to this hospitalization on the Neurology Service, please contact the author(s) of this discharge summary through the [facility] [employer] Furniture Caster . If you need to cancel or reschedule, please call Dept: [phone] as soon as possible. This is helpful to us and other waiting patients. IF FOLLOW UP VISIT WITH STROKE TEAM IS NEEDED IN FORM OF TELEHEALTH: Please ensure you have an active [email or web address] account and are familiar with it. Also, please ensure an active email address. To sign up for a [employer] account, Visit the [email or web address] website and 1) choose ???create an account?? [...] created. If you need technical assistance call [phone] Friday through Friday, 7:30 am to 5:00 pm If you plan to join your [facility] Visit using your personal smartphone or tablet, prior to joining your visit you will need to download the Zoom jessi from the Jessi Store (for VNGhone/iPad) or 3nder (for Android). Ifyou already have Zoom downloaded on your device for personal use, you???re good to go! 1. Open the Jessi Store or 3nder Store on your device. 2. Search for Zoom and download the DoesThatMakeSense.com jessi. ? Jessi Store Link: https://MeetMe.Only Natural Pet Store/us/jessi/iomo-twzzn-katrcktz/pk673385342 ? 3nder Link: https://Tinker Square/store/apps/details?id=us.zoom.videomeetings If you plan to join your [facility] Video Visit using your computer or [...] link to connect to your visit withinyour [facility] portal. 1. Sign into your Knack.it account. 2. Select Appointments. 3. Select your [facility] Video Visit and tap Begin Visit. [...] Starting 30 minutes prior to your scheduled [facility] Video Visit, you will find the link to connect tothe visit within your Knack.it portal. 1. Sign into your Knack.it account ([facility] portal link: [email or web address]). 2. On the top of the webpage, hover over Visits and select Appointments and Visits. 3. Click the Details button next to your [facility] video visit. 4. Click the Begin [...] your microphone settings are on. General Instructions None Future Appointments and Orders Future Appointments and Orders Future Appointments Provider Department Dept Phone 05/24/2024 10:00 AM Xiomara Burkett MD Gynecology Oncology at [facility] Arrive at: Compliance Representative Area [phone] Future Orders Complete By Expires Referral to Cardiology [REF12 Custom] As directed Process Instructions: If no progress note charted, please enter Clinical details in comments. Scheduling Instructions: Questions: My question or request is: structural heart team: pAF, previously on apixaban, now hemorrhagic stroke. Consideration of LAAC Primary Care Provider: Dorita Zimmerman, RANGE SCIENTIST [address] [facility] [id number] Discharge References/Attachments None documented in this encounter Discharge Instructions * Patient Instructions* Ravi Dickson PA - 05/08/2024 12:19 PM EDT Images from the original note were not included. Patient Instructions: You were admitted to the neurology service at [facility] Your Diagnosis: hemorrhagic stroke, likely due to cerebral amyloid angiopathy -Stop taking apixaban and do not resume -We have referred you to cardiology for consideration of left atrial appendage closure. This procedure can help reduce your risk of stroke in afib. Cerebral amyloid angiopathy is a condition that can increase your risk of recurrent brain bleeds. Unfortunately, there is no treatment or cure for CAA. In order to reduce your risk of future bleeds, it is important to avoid any medications/substances that can decrease the body???s ability to clot. This includes anticoagulants (???blood thinners?? ) as well as antiplatelet agents (aspirin, clopidogrel, ticagrelor, dipyridamole etc). NSAIDs such as ibuprofen and napoxen should be avoided. Tylenol is suggested for headache or other temporary pain control. Alcohol can also impair platelet function and should be avoided. You must not use cigarettesor nicotine from other sources. Do not take statins (cholesterol medication) or SSRIs (usually for anxiety, depression) unless there is a clear indication for their necessity (e.g. Prior heart attack, severe depression). The optimal blood pressure goal is not clear, but a suggested BP target is <130/80. - Work close with your primary care [...] Pressure BP Readings from Last 3 Encounters: 05/08/24 109/67 04/23/24 149/65 03/03/24 129/57 HA1C Lab Results Component Value Date HA1C 6.0 (H) 05/06/2024 Cholesterol Lab Results Component Value Date CHLPL 135 05/06/2024 HDL 46 05/06/2024 TRIG 101 05/06/2024 LDLCHOL 69 05/06/2024 Below is an explanation of each of [...] follow-up appointment in the neurology clinic at [facility]. See below for the appointment [...] may be billed similar to a regular keph-da-ovtc clinic visit. Primary Care Provider: Please follow up with your Primary Care Provider within one to 2 weeks of discharge. For questions regarding this document or issues relating to this hospitalization on the Neurology Service, please contact the author(s) of this discharge summary through the [facility] Kiln Furniture Caster . If you need to cancel or reschedule, please call Dept: [phone] as soon as possible. This is helpful to us and other waiting patients. IF FOLLOW UP VISIT WITH STROKE TEAM IS NEEDED IN FORM OF TELEHEALTH: Please ensure you have an active Knack.it account and are familiar with it. Also, please ensure an active email address. To sign up for a Knack.it account, Visit the [email or web address] website and 1) choose ???create an account?? [...] created. If you need technical assistance call [phone] Friday through Friday, 7:30 am to 5:00 pm If you plan to join your [facility] Video Visit using your personal smartphone or tablet, prior to joining your visit you will need to download the Zoom jessi from the Jessi Store (for iPhone/iPad) or 3nder (for Android). Ifyou already have Zoom downloaded on your device for personal use, you???re good to go! 1. Open the Jessi Store or [employer] Store on your device. 2. Search for Zoom and download the Zoom [place] Meetings jessi. ? Jessi Store Link: https://MeetMe.Only Natural Pet Store/us/jessi/fenp-tflhm-tnkjfqtg/mx870610822 ? [employer] Link: https://Tinker Square/store/apps/details?id=us.zoom.videomeetings If you plan to join your [facility] Video Visit using your computer or laptop, prior to joining your video visit you will need to download Zoom. If you already have Zoom downloaded on your machine for personal use, you???re good to go! 1. Open your web browser (Internet Explorer, Chrome, etc.). 2. Type zoom.us and press enter on your keyboard (or click this link: [email or web address]/). 3. In the top right corner of [...] link to connect to your visit withinyour [facility] portal. 1. Sign into your myD-H account. 2. Select Appointments. 3. Select your [facility] Video Visit and tap Begin Visit. [...] your myD-H portal. 1. Sign into your myD-H account ([facility] portal link: [email or web address]). 2. On the top of the webpage, hover over Visits and select Appointments and Visits. 3. Click the Details button next to your myD-H video visit. 4. Click the Begin Video [...] Sig Dispensed Refills Start Date End Date acetaminophen (Tylenol) 325 mg tablet Take 2 tablets by mouth every 6 hours as needed for Pain. 04/23/2024 cholecalciferol (Vitamin D3) 1,000 unit tablet Take 1,000 Units by mouth Daily. 12/10/2020 dilTIAZem CD (Cardizem CD) 300 mg CD (ER) 24 hr casule Take 1 capsule by mouth daily. 03/03/2023 traMADoL (Ultram) 50 mg tablet Take 50 mg by mouth Every 6 hours as needed. 10/27/2023 10/12/2024 documented as of this encounter Progress Notes * Yu Varela - 05/08/2024 12:51 PM EDT Office of Care Management/Telecommunication Operator Patient Name: Katina Arthur : 1950 Patient has been offered a SNF bed at [facility]. Friend will transport patient to facility via personal vehicle (at or around 1300) Ambulance will need: Medicare ambulance form completed and signed (MD or Public Service Representative RN/CASINO CHANGE ATTENDANT) Copy of patient demographics [place] Out of Hospital DNR/DNI order, if active No MD to MD report necessary Please call Nursing Report to [phone], ask for perioperative assistant. Info to accompany patient: Copies of Medication Administration Records and IV sheets for past 10 days. Plan: Telecommunication Operator will be available to the patient and Public Service Representative-RN and/or Social Workerfor further assistance. Patient will be discharged to: [address] Yu Varela Telecommunication Operator * Gissell Velazco MD - 05/07/2024 6:24 AM EDT Vascular Neurology Daily Progress Note 05/07/24 Admit Date 05/06/2024 Responsible Attending: Gissell Velazco MD Primary Provider: Dorita Zimmerman, RANGE SCIENTIST [phone] Hospital Day: Hospital Day: 2 Patient ID: 74 y.o. female w/ PMHx of paroxysmal Afib on apixaban, CHRISTOPHER (not on CPAP), HLD, obesity, essential tremor, GERD, osteoporosis, prediabetes, psoriasis, chronic pain, abnormal uterine bleeding (s/p hysterectomy) and asthma/COPD who presents with acute onset severe headaches with N/V + vision changes. Found to have R occipital IPH, s/p PCC for reversal. 24hr Events: Yesterday: - PT/OT -> ARF - TTE reassuring - Pt exam stable, CT scans largely stable - Says her CABA is a 2/10 in the R frontal region Overnight: - Went for MRI This Morning: - Feeling nauseous since the banging noises of the MRI - CABA is still a 2/10 - Feels her vision may be a little better ROS: Review of Systems Gastrointestinal: Positive for GERD. Negative for abdominal discomfort and vomiting. Neurological: Positive for headaches. Vitals: Last value Range last 24 hrs Temperature Temp: 37.1 ??C (98.8 ??F) Temp: [36.7 ??C (98 ??F)-37.1 ??C (98.8 ??F)] Heart Rate Heart Rate: 83 Heart Rate: [62-90] Blood Pressure BP: 116/69 BP: (107-134)/(46-96) Respiratory Rate Resp: 21 Resp: [15-21] SpO2 SpO2: 94 % SpO2: [93 %-96 %] Intake/Output Summary (Last 24 hours) at 05/07/2024 1003 Last data filed at 05/07/2024 0600 Gross per 24 hour Intake 570 ml Output 500 ml Net 70 ml Admit wt: 85 kg Physical Exam: General: Alert, oriented to self, time, & place. In no acute distress. HEENT: Normocephalic, atraumatic. Anicteric sclerae, normal conjunctivae. Oropharynx clear without lesions. Moist mucous membranes. Neck: Normal range of motion, no lymphadenopathy. Pulmonary: Breathing non-labored with adequate inspiratory effort. Extremities: Warm, well perfused. No cyanosis, clubbing, or edema. Neuro Exam: MS: AAOx4, clear language, no dysarthria, follows commands CN: PERRL, EOMI, complete L HH Facial sensation intact, trace L facial droop Hearing intact to voice Palate elevates symmetrically, tongue protrudes midline SCM and trap strength intact Motor: Normal bulk and tone. 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 5/5 R, 5/5 L Thumb abduction (APB) 5/5 R, 5/5 L Finger abduction LE: 5/5 R, 5/5 L Hip flexion 5/5 R, 5/5 L Knee extension 5/5 R, 5/5 L Knee flexion 5/5 R, 5/5 L Foot dorsiflexion 5/5 R, 5/5 L Foot plantar flexion Sensation: Intact and symmetric to light touch in limbs Reflexes: DTRs 2+ R, 2+ L Biceps 2+ R, 2+ L Brachioradialis 2+ R, 2+ L Triceps 2+ R, 2+ L Patellar Coordination: Finger to nose with L arm action tremor (chronic) Heel-greene intact L arm action tremor Gait: Ambulated with PT, unable to maintain straight line Medications: Scheduled Meds: dilTIAZem CD 300 mg Oral Daily cholecalciferoL 1,000 Units Oral Daily sodium chloride 0.9 % (flush) 5 mL Intravenous BID senna-docusate 2 tablet Oral BID polyethylene glycoL (MIRALAX) oral powder 17 g Oral Daily calcium carbonate 1,000 mg Oral Daily Continuous Infusions: niCARdipine PRN Meds: ondansetron, sodium chloride 0.9 % (flush), lidocaine, labetaloL, enalaprilat, bisacodyL,acetaminophen OR acetaminophen OR acetaminophen, magnesium hydroxide, ipratropium-albuteroL, traMADoL Labs: Recent Labs 05/07/2415405/06/24 0951 WBC 13.3* 11.6* HGB 13.7 14.9 HCT 40.3 44.3 PLATELET 257 261 NEUTROABS 9.60* 8.88* Recent Labs 05/07/24 0157 05/06/24 0951 NA 139 139 K 4.2 4.3 CL 105 102 CO2 25 27 BUN 14 13 CREATININE 0.68* 0.80 GLUCOSE 118 176 Recent Labs 05/07/24 0157 05/06/24 0951 CALCIUM 9.2 9.1 MAGNESIUM 0.84 0.78 PHOS 2.8 2.9 Recent Labs 05/07/24 0157 05/06/24 0951 AST 13 16 ALT 14 16 ALKPHOS 91 97 BILITOT 0.3 0.4 BILIDIR <0.1 -- No results for input(s): TROPONINT, CK in the last 168 hours. No results for input(s): PHART, MVO6DOL, PO2ART, TVY9JUH in the last 168 hours. Recent Labs 05/07/24 01505/06/24 0951 PT 11.9 11.9 PTT 29 31 Lab Results Component Value Date HA1C 6.0 (H) 05/06/2024 Lab Results Component Value Date CHLPL 135 05/06/2024 HDL 46 05/06/2024 TRIG 101 05/06/2024 LDLCHOL 69 05/06/2024 Lab Results Component Value Date TSH 0.99 05/06/2024 No results found for: [id number] No results found for: SFOLATE No results found for: CRP No results found for: SEDRATE No results found for: CK No results found for: REBECA No results found for: RF No results found for: TPROTEINPEP, ALBELECT No results found for: AMMONIA Pending Labs: The patient will need the following 7 tests completed on: 05/05/2024 1. CBC (with Diff) 5. Basic Metabolic Panel (non-fasting) 2. Magnesium 6. Phosphorus 3. Hepatic Function Panel 7. Prothrombin Time 4. APTT Diagnosis: Authorizing Provider: Teresa Ruiz MD Micro - cultures/sensitivities: Microbiology Results (Last 30 days) No results found for the last 720 hours. Imaging: Results for orders placed or performed during the hospital encounter of 05/06/24 MRI Brain wwo Contrast (Generic) (Exam End: 05/07/2024 7:01 AM) Result Value WORKSTATION ID [id number] Impression 1. New 1.6 cm hemorrhagic anterior to grossly stable 4.2cm right occipital hemorrhage with intraventricular extension with mild surrounding edema and sulcal effacement. 2. Multiple right parieto-occipital and posterior temporal cortical/subcortical microhemorrhages and chronic right anterior frontal subcortical hemosiderin staining. 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 3. No enhancing mass or vascular malformation. Thank you for letting us participate in the care of this patient. If you are a health care provider and have any questions regarding this report, please contact the number below. For patients who have questions please contact the health health care liaison that requested your imaging first. Electronically signed by: Smiley Cordova MD, [facility] ([phone]), at 05/07/2024 8:[address] Angiogram Carotids & [place] (Exam End: 05/06/2024 6:59 AM) Result Value WORKSTATION ID [id number] Impression Mildly increased size of right occipital hematoma, without associated contrast extravasation, or associated abnormal vascularity noted. Mild luminal irregularity and ectasia of the distal cervical ICA on the right side without accompanying atherosclerotic plaque or dissection flap. Otherwise negative CTA of the head and neck. Thank you for letting us participate in the care of this patient. If you are a health care provider and have any questions regarding this report, please contact the number below. For patients who have questions please contact the health health care liaison that requested your imaging first. Electronically signed by: [facility] Bolden [facility] ([phone]), at 05/06/2024 9:[address] Head wo Contrast (Generic) (Exam End: 05/06/2024 6:59 AM) Result Value WORKSTATION ID [id number] Impression Mildly increased size of right occipital hematoma, without associated contrast extravasation, or associated abnormal vascularity noted. Mild luminal irregularity and ectasia of the distal cervical ICA on the right side without accompanying atherosclerotic plaque or dissection flap. Otherwise negative CTA of the head and neck. Thank you for letting us participate in the care of this patient. If you are a health care provider and have any questions regarding this report, please contact the number below. For patients who have questions please contact the health health care liaison that requested your imaging first. Electronically signed by: Elvin Bolden [facility] ([phone]), at 05/06/2024 9:[address] Head wo Contrast (Generic) (Exam End: 05/07/2024 1:19 AM) Result Value WORKSTATION ID [id number] Impression Slightly decreased size of the evolving right occipital parenchymal hematoma with similar vasogenic edema and local mass-effect. Thank you for letting us participate in the care of this patient. If you are a health care provider and have any questions regarding this report, please contact the number below. For patients who have questions please contact the health health care liaison that requested your imaging first. Electronically signed by: Padmaja cAuna MD, [facility] ([phone]), at 05/07/2024 1:40 AM EKG/Echocardiogram: Results for orders placed or performed during the hospital encounter of 05/06/24 EKG 12 Lead Result Value Ref Range Ventricular rate 83 BPM Atrial Rate 83 BPM P-R Interval 166 ms QRS Duration 64 ms Q-T Interval 340 ms QTC Calculated (Bezet) 399 ms Calculated P [place] 31 degrees Calculated R [place] -39 degrees Calculated T [place] 29 degrees INTERPRETATION Normal sinus rhythm Left axis deviation No previous ECGs available I personally reviewed the tracing and edited the fellows interpretation Confirmed by fellow Roney Ashby ([id number]) on 05/06/2024 3:42:55 PM Confirmed by MD RICHARDS SALVATORE ([id number]) on 05/06/2024 4:33:11 PM TTE 05/06/24: -Left ventricular systolic function is hyperdynamic. The left ventricular ejection fraction is 75% by Ruth's biplane. There are no segmental wall motion abnormalities. -The right ventricle is of normal size. Right ventricular systolic function is normal. -There is aortic valve sclerosis without stenosis. -See report for additional findings. No comparison study is available. Assessment: Katina Arthur is a 74 y.o. female w/ PMHx of paroxysmal Afib on apixaban, CHRISTOPHER (not on CPAP), HLD, obesity, essential tremor, GERD, osteoporosis, prediabetes, psoriasis, chronic pain, abnormal uterine bleeding (s/p hysterectomy) and asthma/COPD who presents with acute onset severe headaches withN/V + vision changes. Found to have R occipital IPH, s/p PCC for reversal. Patient had a severe headache for 3 days CONSULTING IT ARCHITECT, and a progressive, now complete, left homonymous hemianopsia. She has a right occipital IPH with blood of varying ages. It appears to be largely stable on serial CT scans, though given mild interval increase will scan every 6 hours until minimal changesnoted. Hemorrhage etiology thought to be secondary to apixaban initially, but MRI mor concerning for CAA. Statin therapy increases the risk of hemorrhage reoccurrence by 1.5x, thus will defer resumption of therapy. Ideally, would maintain her on ASA monotherapy and determine candidacy for Watchmanndevice. Patient is left with a severe visual disability, and will likely need several accommodations if sheis to continue to attempt to live on her own. She is being followed by physical and Occupational Therapy, who have recommended her be placed in acute rehab. Plan: Today - Continue PT, OT assessments - Defer statin indefinitely - Stability CTH 6/15 AM Neurological # R IPH - occipital lobe # IV Extension of occipital IPH # L Homonomous hemianopsia # c/f CAA - Interval CT with mildly increased right occipital hematoma, repeat at 24H (6/15 AM) - MRI brain w/wo contrast: c/f CAA - CTA head & neck with mild luminal irregularity and ectasia of the distal cervical ICA on the right - ICH score 1 - Admit to neurology, NSCU level of care - Neuro check & vitals Q2hrs / Q2hrs - Head of bed > 30 degrees - SBP goal of 130-150 with nicardipine drip for SBP greater than 150 - Hold anticoagulation, antiplatelet, and DVT Ppx - Discuss Watchmann candidacy - UDS (-) - TTE w/ LVEF 75%, no sWMAs, no valve disease - 12 lead EKG, Telemetry - LDL 69 on lovastatin, HOLD statin indefinitely - 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 # Paroxysmal A-fib on apixaban # History hyperlipidemia - c/w CONSULTING IT ARCHITECT diltiazem - See lipid, AC/AP, and BP info above # Osteoporosis - c/w CONSULTING IT ARCHITECT calcium + Vit D # Chronic neck and back pain - c/w CONSULTING IT ARCHITECT tramadol # Prediabetes - A1c = 6%, defer to outpatient Routine - Activity: up with assistance - Diet: Regular diet - DVT PPx: SCD - GI PPx: n/a - Dispo: ARF when MR - Last BM: Last Bowel Movement: (CONSULTING IT ARCHITECT) - Code status: Attempt Cardiopulmonary Resuscitation - Inpatient Please page Vascular Neurology with any questions, #[phone] Galindo Nascimento, Neurology, PGY-2 05/07/2024 Neurology Attending Attestation I evaluated the patient with the Stroke Team during bedside rounds. I have reviewed the medical records and patient's history, as well as the resident???s history and examination findings and I agreewith the details as written. My neurologic examination confirms the resident???s findings. We formulated the assessment and plan after a detailed discussion, as documented. 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 We reviewed risk of bleeding recurrence and implication regarding long term care phlebotomist use of anticoagulants. long term care phlebotomist anticoagulation is contraindicated with diagnosis of CAA. Will start ASA in about two weeks. Referral to structural heart disease clinic forconsideration for watchman device. Gissell Velazco MD Vascular Neurology * Anjelica Maguire, OT - 05/06/2024 12:27 PM EDT Occupational Therapy Evaluation Patient profile: Per MD Barker Florence Arthur is a 74 y.o. female w/ PMHx of paroxysmal Afib on apixaban, CHRISTOPHER (not on CPAP), HLD, obesity, essential tremor, GERD, osteoporosis, prediabetes, psoriasis, chronic pain, abnormal uterine bleeding (s/p hysterectomy) and asthma/COPD who presents with acute onset severe headaches with N/V + vision changes. Found to have R occipital IPH, s/p PCC for reversal. Patient has had a severe headache for 3 days, and a progressive, now complete, left homonymous hemianopsia. She has a right occipital IPH with blood of varying ages. It appears to be largely stable on serial CT scans, though given mild interval increase will scan every 6 hours until minimal changesnoted. Hemorrhage etiology thought to be secondary to apixaban, thus she was given prothrombin complex concentrate for reversal and her coagulation parameters are now normal. She will also undergo a urine drug screen for sympathomimetics, as well as an MRI with and without contrast to look for underlying lesion. MRI can also give insight as to if she has CAA predisposing her to hemorrhage. Hypertension is thought to be less likely given she has no diagnosis of hypertension, and her vitals here are normotensive without treatment. Patient is left with a severe visual disability, and will likely need several accommodations if sheis to continue to attempt to live on her own. She is being followed by physical and Occupational Therapy, who have recommended her be placed in acute rehab. Past Medical History: Diagnosis Date Irregular heart beat Obstructive sleep apnea Past Surgical History: Procedure Laterality Date PRO LAPAROSCOPY W TOT HYSTERECTUTERUS <=250 GRAM W TUBE/OVARY N/A 04/23/2024 LAPAROSCOPY, TOTAL HYST, UTERUS<250GMS, REM TUBE &/OR OVARY (WRVU 15) performed by Xiomara Burkett MD at [facility] MAIN OR Social History: Patient lives alone in a multi-level home in [place], [place] Home Setup: Pt has a couple ZAIN with one rail. Pt has FOS to spare bedrooms and to basement. Pt canstay on one level. Pt has tub/shower combo. Pt has laundry on main floor. Baseline ADL/Mobility: Prior to admission; Pt was independent with all ADL and IADL routines. Pt drives. DME: None Falls: No recent falls Precautions/Special Considerations: L visual field cut, full code, HOB 30 degrees or more, regular diet Activity Orders: up with assistance Subjective: I can't even walk to the bathroom without bumping into things and I can't believe I missed all of those regarding L HH and inability to appropriately locate all the circles on page without cueing Objective: Seen today for OT evaluation. Cognitive Status/Behavior: Behavior / Mood: alert and cooperative Alert and oriented to: person, place, month, and situation Follows commands: 2 step and 100% of the time Attention: WFL Safety awareness: decreased insight into deficits Pt aware of L HH Vision & Perception: corrective lenses maritime guard OD amblyopia Pt with L homonymous hemianopsia Pt bumping into items on L side; even with cuing Pt educated on lighthouse technique Pt educated on scanning techniques Recommend VABVI referral Recommend neuro-charging machine operator appointment Pt with short visual search Communication: WFL Hearing: WFL Range of motion, strength, coordination: Hand dominance: right Bilateral UEs are within functional limitations LE limitations: WFL Sensation: Pt denied any parasthesias Activities of Daily Living: Self-feeding: Setup assistance to locate all food items Grooming: CGA at sink Dressing: CGA to min A for standing level ADLs, supervision for hiking socks while seated in recliner chair Bathing: Did not assess Toileting: Transfer: Recommend CGA with FWW and cues to attend to the L Hygiene: Anticipate independent Functional Mobility: Supine to sit: Did not assess; Pt up in recliner chair pre session Sit to stand: CGA cues to use other senses and to scan to ensure she is safe to stand Ambulation: CGA with constant cues for safety with FWW; Pt noted to bump into items on L despite cues on occasion Stand to sit: CGA with cues for hand placement Sit to supine: Did not assess Vitals: VSS on RA Pain: 0/10 Skin: not assessed Education: Plan of care , Activity tolerance, Positioning, Safety during ADL's and functional mobility , Increased participation in self-care and ADL's within hospital environment , Discharge planning , Use of AE, Transfers, Mobility, Balance strategies, Visual anchor and lighthouse scanning , Health management , Symptom and condition management, Medication management , Social and emotional health promotion and maintenance, Daily schedule , and Goals Patient status, treatment, and mobility recommendations discussed with nursing. Assessment: Pt has been seen for occupational therapy evaluation. Katina Arthur presents with the following performance skill deficits and client factors: decreased activity tolerance, decreased sitting/standing balance, visual deficits, and compromised mobility status. These performance deficits have led to activity limitations and participation restrictions in the following areas of occupation: dressing, bathing, grooming, toileting, self-feeding, transfers/mobility, rest/sleep, home management, leisure participation, driving, community mobility, health management, symptom and conditionmanagement , and social and emotional health promotion and maintenance. Patient seen for OT services this date. Pt currently experiencing L visual field cut and noted with difficulty with navigating environment and perform ADLs due to decreased vision. Pt educated on scanning strategies and was able to carryover at times while ambulating at times, but benefited continued cues for overall safety. Pt lives alone and will need to be completely independent prior to returning. Recommend Pt dischargeto an acute rehab to maximize function prior to returning home. She will benefit from increased education regarding compensatory strategies to assist with the visual impairment. Recommend she has a referral to the [facility]. Do not recommend Pt drive until cleared by MD or driving rehab program. Pt would benefit from further inpatient OT interventions to address performance deficits and maximize participation, independence, quality of life, health and wellness, prevention, and safety with activities of daily living. Equipment Needs Upon Discharge (OT): to be determined Consult Recommendations: No other consults recommended at this time Anticipated Discharge Disposition (OT): acute rehabilitation facility Activity Recommendations: Sit upright for all meals/meal times OOB to chair for all meals Ambulate as tolerated with CGA and cues to attend to the L with FWW Encourage participation in ADL's by providing set up assist on tray table and physical assist only as needed Prompt pt to scan environment to the left Ask visitors to sit on pt's left side to facilitate increased attention to that side of their body/environment Goals: To be achieved by 05/18/24. 1. Pt will be conditional independent for LB dressing routines with AE as needed at seated/standinglevels 2. Pt will be conditional independent for toileting routine at ambulatory level 3. Pt will be conditional independent for simple snack prep at ambulatory level 4. Pt will be able to stand for 8 minutes to perform sink level grooming task with LRAD 5. Pt will complete scan course and locate all 20 items while ambulating in hallway with LRAD Plan: OT: Therapy Frequency (OT): 2-4 times/wk Planned OT interventions: Role of OT, ADL retraining, Transfers & Functional mobility, Adaptiveequipment training, Therapeutic exercise, Therapeutic functional activity, Positioning recommendations & aids, Safety during ADL & functional mobility, Activity pacing/energy conservation education/training, Home management/IADL retraining, Balance training, Visual-perceptual retraining, and Discharge planning Total Minutes, Occupational Therapy: 45 (1 low eval) OT Evaluation Code Rationale: Diagnosis & Pertinent Co-Morbidities affecting Plan of Care: see PMHx Occupational Profile & Client History: Brief Expanded Extensive x Assessment of Occupational Performance: 1-3 performance deficits 3-5 performance deficits x 5 + performance deficits Clinical Decision Making: Low Moderate High x Clinical decision making of low complexity using standardized patient assessment instrument and measurable assessment of functional outcome. Pager: [phone] Anjelica Maguire OT 05/06/2024 Occupational Therapy Rehabilitation Department * Radha Richards, PT - 05/06/2024 10:31 AM EDT Images from the original note were not included. Physical Therapy Evaluation Patient profile: 74 y.o. female w/ PMHx of paroxysmal Afib on apixaban, CHRISTOPHER (not on CPAP), HLD, obesity, essential tremor, GERD, osteoporosis, prediabetes, psoriasis, chronic pain, abnormal uterine bleeding (s/p hysterectomy) and asthma/COPD who presents with acute onset severe headaches with N/V +vision changes. Found to have R occipital IPH, s/p PCC for reversal. Patient is left with a severe visual disability, and will likely need several accommodations if sheis to continue to attempt to live on her own. She is being followed by physical and Occupational Therapy, who have recommended her be placed in acute rehab. Patient with the following active problems: Past Medical History: Diagnosis Date Irregular heart beat Obstructive sleep apnea Past Surgical History: Procedure Laterality Date PRO LAPAROSCOPY W TOT HYSTERECTUTERUS <=250 GRAM W TUBE/OVARY N/A 04/23/2024 LAPAROSCOPY, TOTAL HYST, UTERUS<250GMS, REM TUBE &/OR OVARY (WRVU 15) performed by Xiomara Burkett MD at [facility] MAIN OR Social History: Patient reports she lives alone with her two cats in a 2 level home with a basement. Patient reports her needs are met on the main level, including laundry. Her bathroom includes a tub shower with grab bars. Residence has 2 small ZAIN. At her baseline, patient is independent in all aspects. 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 Patient reports she enjoys her 1/2 acre of flower beds. Falls: None Precautions/Special Considerations: Fall Risk, visual impairment, SBP 130-150, up with assist Mobility and Positioning Recommendations: Pt. to utilize RW and min A on her L side Please encourage up to chair for meal times as able. Pt encouraged to ambulate frequently with staff, getting into the bathroom for toileting and walking out in the john >/= 3 times daily as able. Patient requires min A on her L side as well as verbal cues to scan her environment to the L side Subjective: ???I couldn't even see you standing there!?? (on patient's L side) Objective: Pt seen for PT evaluation today. Pain: mild headache Vital Signs: HR 87 SpO2 97% ora BP 125/57 (72) Mental Status: alert, oriented to person, place, and time Vision: Amblyopia R eye (baseline), L homonymous hemianopsia, FT glasses at baseline, baseline decreased depth perception Musculoskeletal: ROM: BLE WFL, mild L facial droop Strength: BLE WFL Sensation: BLE WFL, denied N&T Bed Mobility: Supine to Sit: NT, assume cond. Indep. Sit to Supine: NT, assume cond. Indep. Transfers: Sit to Stand: supervision Stand to Sit: supervision Bed to Chair: CGA Gait: Distance: 100 ft Device used: RW Level of assist: CGA Gait mechanics: reciprocal gait; max cues to scan environment fully to the L sec to homonymous hemianopia, required assist to steer walker in crowded room Stairs: NT Balance: Sitting Static: good Sitting Dynamic: fair Standing Static: fair Standing Dynamic / Gait: fair with RW Education: Patient has been educated on Bed mobility, Transfers, Assistive device/technique, Safety, Precautions/protocol, Equipment use, Gait , Role of therapy, Balance, and Discharge planning and verbalizes understanding. Patient status, treatment, and mobility recommendations discussed with nursing. Assessment: Katina Arthur was seen today for physical therapy evaluation and presents with the following impairments: Decreased activity tolerance, pain, visual impairment, impaired balance (sec to visual deficits), and an overall compromised mobility status, all of which impact patient's current functional baseline. 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 During this evaluation, patient was able to stand and ambulate in the hallway using a RW, but required assistance as well as frequent verbal cues to scan her environment fully to the L to compensate for her homonymous hemianopsia. Considering patient lives alone, recommend an acute inpatient rehab stay to improve strength, balance, and work on compensatory technique for her significant visual impairment. Patient is a motivated participant, able to follow commands, pleasant, and eager to resume independent living. The pt would benefit from skilled therapy services while in the hospital to maximize functional abilities. Discharge Recommendations: Based on the current findings, Anticipated Discharge Disposition (PT): acute rehabilitation facility when medically ready for hospital discharge. Consult Recommendations: No other consults recommended at this time. Equipment needs: TBD Goals: To be achieved by 05/23/2024: Pt to be independent with bed mobility with bed flat Pt to transfer from sit to stand with RW and supervision Pt to ambulate 150 ft with RW and supervision with 3 or less environmental or safety cues Pt will score <14.2 seconds on the 5 repetition sit to stand test in order to demonstrate improved functional BLE strength Plan: Therapy Frequency (PT): 2-4 times/wk for therapy including balance training, bed mobility training, gait training, motor coordination training, neuromuscular re-education, patient/family education, range of motion, stair training, strengthening, stretching, and transfer training. Patient/family understand and agree with plan as stated above. 2017 PT Evaluation Code Rationale: Diagnosis & Pertinent Co-Morbidities, personal factors, and present illness affecting Plan of Care: (see above); Additional personal factors or co- morbidities that impact plan: Total # of Factors: 0 1-2 3+ x Examination of body system impairments, functional limitations and behaviors, and/or participation restrictions. Addressing 1-2 elements Addressing 3 + elements x Addressing 4 + elements Clinical presentation: See assessment above. Stable/Uncomplicated Evolving/Fluctuating Symptoms Unstable/Unpredictable x Clinical decision making of moderate complexity based on pt's functional performance as outlined inthis evaluation. Time IN / OUT: 2620-7443 Radha Richards DPT Board-Certified Clinical Specialist in Geriatric Physical Therapy Board-Certified Clinical Specialist in Neurologic Physical Therapy Inpatient/outpatient Rehab [facility] * Galindo Nascimento, - 05/06/2024 7:04 AM EDT Vascular Neurology Daily Progress Note 05/06/24 Admit Date 05/06/2024 Responsible Attending: Gissell Velazco MD Primary Provider: Dorita Zimmerman, RANGE SCIENTIST [phone] Hospital Day: Hospital Day: 1 Patient ID: 74 y.o. female w/ PMHx of paroxysmal Afib on apixaban, CHRISTOPHER (not on CPAP), HLD, obesity, essential tremor, GERD, osteoporosis, prediabetes, psoriasis, chronic pain, abnormal uterine bleeding (s/p hysterectomy) and asthma/COPD who presents with acute onset severe headaches with N/V + vision changes. Found to have R occipital IPH, s/p PCC for reversal. 24hr Events: Yesterday: - Presented to OSH, transfer request placed Overnight: - Admitted to stepdown status This Morning: - Says her CABA is a 2/10 in the R frontal region - Can't see the left half of examiner's face, words are bleeding together - Says she gets an hour of palpitations once a month with the afib - Repeat CTH w/ mildly increased size of right occipital hematoma ROS: Review of Systems Gastrointestinal: Positive for GERD. Negative for abdominal discomfort and vomiting. Neurological: Positive for headaches. Vitals: Last value Range last 24 hrs Temperature Temp: 37.1 ??C (98.8 ??F) Temp: [36.6 ??C (97.8 ??F)-37.1 ??C (98.8 ??F)] Heart Rate Heart Rate: 85 Heart Rate: [68-85] Blood Pressure BP: 125/57 BP: (118-127)/(56-70) Respiratory Rate Resp: 19 Resp: [16-20] SpO2 SpO2: 96 % SpO2: [82 %-96 %] Intake/Output Summary (Last 24 hours) at 05/06/2024 1127 Last data filed at 05/06/2024 0400 Gross per 24 hour Intake 200 ml Output -- Net 200 ml Admit wt: 85 kg Physical Exam: General: Alert, oriented to self, time, & place. In no acute distress. HEENT: Normocephalic, atraumatic. Anicteric sclerae, normal conjunctivae. Oropharynx clear without lesions. Moist mucous membranes. Neck: Normal range of motion, no lymphadenopathy. Pulmonary: Breathing non-labored with adequate inspiratory effort. Extremities: Warm, well perfused. No cyanosis, clubbing, or edema. Neuro Exam: MS: AAOx4, clear language, no dysarthria, follows commands CN: PERRL, EOMI, complete L HH Facial sensation intact, mild L facial droop Hearing intact to voice Palate elevates symmetrically, tongue protrudes midline SCM and trap strength intact Motor: Normal bulk and tone. 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 5/5 R, 5/5 L Thumb abduction (APB) 5/5 R, 5/5 L Finger abduction LE: 5/5 R, 5/5 L Hip flexion 5/5 R, 5/5 L Knee extension 5/5 R, 5/5 L Knee flexion 5/5 R, 5/5 L Foot dorsiflexion 5/5 R, 5/5 L Foot plantar flexion Sensation: Intact and symmetric to light touch in limbs Reflexes: DTRs 2+ R, 2+ L Biceps 2+ R, 2+ L Brachioradialis 2+ R, 2+ L Triceps 2+ R, 2+ L Patellar Coordination: Finger to nose with L arm action tremor (chronic) Heel-greene intact L arm action tremor Gait: Ambulated with PT, unable to maintain straight line Medications: Scheduled Meds: dilTIAZem CD 300 mg Oral Daily cholecalciferoL 1,000 Units Oral Daily sodium chloride 0.9 % (flush) 5 mL Intravenous BID senna-docusate 2 tablet Oral BID polyethylene glycoL (MIRALAX) oral powder 17 g Oral Daily calcium carbonate 1,000 mg Oral Daily Continuous Infusions: niCARdipine PRN Meds: sodium chloride 0.9 % (flush), lidocaine, labetaloL, enalaprilat, bisacodyL, acetaminophen OR acetaminophen OR acetaminophen, magnesium hydroxide, ipratropium-albuteroL, traMADoL Labs: Recent Labs 05/06/24 0951 WBC 11.6* HGB 14.9 HCT 44.3 PLATELET 261 NEUTROABS 8.88* Recent Labs 05/06/24 0951 NA 139 K 4.3 CL 102 CO2 27 BUN 13 CREATININE 0.80 GLUCOSE 176 Recent Labs 05/06/24 0951 CALCIUM 9.1 MAGNESIUM 0.78 PHOS 2.9 Recent Labs 05/06/24 0951 AST 16 ALT 16 ALKPHOS 97 BILITOT 0.4 No results for input(s): TROPONINT, CK in the last 168 hours. No results for input(s): PHART, ZBP3QEO, PO2ART, LXI7ZHV in the last 168 hours. Recent Labs 05/06/24 0951 PT 11.9 PTT 31 Lab Results Component Value Date HA1C 6.0 (H) 05/06/2024 Lab Results Component Value Date CHLPL 135 05/06/2024 HDL 46 05/06/2024 TRIG 101 05/06/2024 LDLCHOL 69 05/06/2024 Lab Results Component Value Date TSH 0.99 05/06/2024 No results found for: [id number] No results found for: SFOLATE No results found for: CRP No results found for: SEDRATE No results found for: CK No results found for: REBECA No results found for: RF No results found for: TPROTEINPEP, ALBELECT No results found for: AMMONIA Pending Labs: The patient will need the following 3 tests completed on: 05/05/2024 1. CBC (with Diff) 3. Urinalysis with reflex Culture 2. Rapid Drug Screen, Urine (SUKHI Request) Diagnosis: Authorizing Provider: Teresa Ruiz MD Micro - cultures/sensitivities: Microbiology Results (Last 30 days) No results found for the last 720 hours. Imaging: Results for orders placed or performed during the hospital encounter of 05/06/24 CT Angiogram Carotids & [place] (Exam End: 05/06/2024 6:59 AM) Result Value WORKSTATION ID [id number] Impression Mildly increased size of right occipital hematoma, without associated contrast extravasation, or associated abnormal vascularity noted. Mild luminal irregularity and ectasia of the distal cervical ICA on the right side without accompanying atherosclerotic plaque or dissection flap. Otherwise negative CTA of the head and neck. Thank you for letting us participate in the care of this patient. If you are a health care provider and have any questions regarding this report, please contact the number below. For patients who have questions please contact the health health care liaison that requested your imaging first. Electronically signed by: Elvin Bolden DO [facility] ([phone]), at 05/06/2024 9:[address] Head wo Contrast (Generic) (Exam End: 05/06/2024 6:59 AM) Result Value WORKSTATION ID [id number] Impression Mildly increased size of right occipital hematoma, without associated contrast extravasation, or associated abnormal vascularity noted. Mild luminal irregularity and ectasia of the distal cervical ICA on the right side without accompanying atherosclerotic plaque or dissection flap. Otherwise negative CTA of the head and neck. Thank you for letting us participate in the care of this patient. If you are a health care provider and have any questions regarding this report, please contact the number below. For patients who have questions please contact the health health care liaison that requested your imaging first. Electronically signed by: Elvin Bolden DO [facility] ([phone]), at 05/06/2024 9:05 AM EKG/Echocardiogram: Results for orders placed or performed during the hospital encounter of 05/06/24 EKG 12 Lead Result Value Ref Range Ventricular rate 83 BPM Atrial Rate 83 BPM P-R Interval 166 ms QRS Duration 64 ms Q-T Interval 340 ms QTC Calculated (Bezet) 399 ms Calculated P [place] 31 degrees Calculated R [place] -39 degrees Calculated T [place] 29 degrees INTERPRETATION Normal sinus rhythm Left axis deviation Possible Anterolateral infarct , age undetermined Abnormal ECG No previous ECGs available TTE -Left ventricular systolic function is hyperdynamic. The left ventricular ejection fraction is 75% by Ruth's biplane. There are no segmental wall motion abnormalities. -The right ventricle is of normal size. Right ventricular systolic function is normal. -There is aortic valve sclerosis without stenosis. -See report for additional findings. No comparison study is available. Assessment: Katina Arthur is a 74 y.o. female w/ PMHx of paroxysmal Afib on apixaban, CHRISTOPHER (not on CPAP), HLD, obesity, essential tremor, GERD, osteoporosis, prediabetes, psoriasis, chronic pain, abnormal uterine bleeding (s/p hysterectomy) and asthma/COPD who presents with acute onset severe headaches withN/V + vision changes. Found to have R occipital IPH, s/p PCC for reversal. Patient has had a severe headache for 3 days, and a progressive, now complete, left homonymous hemianopsia. She has a right occipital IPH with blood of varying ages. It appears to be largely stable on serial CT scans, though given mild interval increase will scan every 6 hours until minimal changesnoted. Hemorrhage etiology thought to be secondary to apixaban, thus she was given prothrombin complex concentrate for reversal and her coagulation parameters are now normal. She will also undergo a urine drug screen for sympathomimetics, as well as an MRI with and without contrast to look for underlying lesion. MRI can also give insight as to if she has CAA predisposing her to hemorrhage. Hypertension is thought to be less likely given she has no diagnosis of hypertension, and her vitals here are normotensive without treatment. Patient is left with a severe visual disability, and will likely need several accommodations if sheis to continue to attempt to live on her own. She is being followed by physical and Occupational Therapy, who have recommended her be placed in acute rehab. Plan: Today - Every [address] head until stable - MRI brain with and without contrast - TTE - PT, OT assessments Neurological # R IPH - occipital lobe # L Homonomous hemianopsia # Bleed volume - approximately 10.7ml - ICH score 1 - Admit to neurology, NSCU level of care - Neuro check & vitals Q2hrs / Q2hrs - Head of bed > 30 degrees - SBP goal of 130-150 with nicardipine drip for SBP greater than 150 - Hold anticoagulation, antiplatelet, and DVT Ppx (can consider restarting 05/07) - Interval CT with mildly increased right occipital hematoma, repeat every 6 hour until minimal to no expansion - TTE, 12 lead EKG, Telemetry - MRI brain w/wo contrast - CTA head & neck with mild luminal irregularity and ectasia of the distal cervical ICA on the right - HOLD statin until MRI results, some concern for CAA - LDL 69 on lovastatin, defer possible turn off until above - 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 # Paroxysmal A-fib on apixaban # History hyperlipidemia - c/q CONSULTING IT ARCHITECT diltiazem - See lipid, AC/AP, and BP info above # Osteoporosis - c/w CONSULTING IT ARCHITECT calcium + Vit D # Chronic neck and back pain - c/w CONSULTING IT ARCHITECT tramadol # Prediabetes - A1c = 6%, defer to outpatient Routine - Activity: up with assistance - Diet: Regular diet - DVT PPx: SCD - GI PPx: n/a - Dispo: pending clinical course - Last BM: Last Bowel Movement: (CONSULTING IT ARCHITECT) - Code status: Attempt Cardiopulmonary Resuscitation - Inpatient Please page Vascular Neurology with any questions, #[phone] Galindo Nascimento, Neurology, PGY-2 05/06/2024 documented in this encounter H&P Notes * Gissell Velazco MD - 05/06/2024 5:50 AM EDT Neurology Admission History and Physical Patient name: Katina Arthur Date of : 1950 PCP: Dorita Zimmerman APRN Stroke Assessment: Date last well known:: 05/02/24 Time last well known:: 2199 Date of discovery of symptoms:: 05/03/24 Time of discovery of symptoms:: 0800 The time difference from patients last known well to ED arrival OR inpatient stroke alert was (choose one): Greater than 4.5 hours Date acute stroke team was at bedside:: 05/06/24 Time acute stroke team was at bedside:: 0200 CT interpretation date: (OSH) CT interpretation time:: (OSH) Was dysphagia screen performed?: No Fast-ED Total Score: 0 CC: R IP HPI: Katina Arthur is a 74 y.o. female with PMHx of Afib on apixaban, CHRISTOPHER(not on CPAP), HLD, BMI of 36, who presents to OSH ED for evaluation of acute onset severe headache 2 days prior associated with nausea and vomiting as well as vision changes. Found to have R occipital IPH wo intraventricular extension or shift, s/p AC reversal at OSH, Transferred to [facility] [place] management of IPH. History per OSH records/teleneuro note She states having a sudden onset headache on Friday after awakening. The headache was associated with nausea and vomiting as well as vision changes. Given the lack of improvement in her headache she presented to OSH ED for evaluation. CTH at OSH showed R occipital IPH and she received aPCC for reversal of apixaban. After being given Tylenol and Fentanyl, she noticed marked improvement in her headache severity, decreasing from a 10/10 to 5/10 in severity. She was however continuing to endorse mild-moderate headache as well as left visual field deficits. Home medications include Apixaban 5mg BID, D3, Diltiazem and Lovastatin. BP at OSH noted to be 157/65 at the time of teleneuro evaluation by Dr. Dominguez. At that time NIHSS of 2 for complete hemianopia. At that time it was recommended to transfer patient to NICU for closer observation and monitoring. Neurosurgery was also consulted who did not believe there was any r ole for surgical intervention at this time. Interval History: At the time of my assessment upon arrival to [facility] patient is laying in bed and does not appear to be in any acute distress. She is able to confirm the above history. She continues to endorse a headache with left visual field deficits. She is not currently experiencing nausea or vomiting. She confirms no history of falls or brain trauma, HTN, prior stroke/TIA, seizures. She does not smoke currently and has not smoked in twenty years. Denies recreational drug use. On history review she states got up Friday morning and she had a severe headache which lasted for three days. She doesn't not know if the headache woke her but it was present on awakening. She had onand off nausea and two episodes on vomiting. She also noticed that when she layed down her headachegot much worse. She also remembers starting ti have some vision changes on Friday as the day progressed it gradually got worse where she can't see left side of her vision. She also states she noticedher vision changes because she wasn't able to read the words on the left and then it got dark on the left side. She endorses a history of skin cancer (SCC) s/p removal.. No known history of vascular abnormalities. Home Medications: No current facility-administered medications on file prior to encounter. Current Outpatient Medications on File Prior to Encounter Medication Sig Dispense Refill HYDROmorphone (Dilaudid) 2 mg tablet Take 1 tablet by mouth every 4 hours as needed for Pain. 5 tablet 0 acetaminophen (Tylenol) 325 mg tablet Take 2 tablets by mouth every 6 hours as needed for Pain. lovastatin (Mevacor) 40 mg tablet Take 1 tablet by mouth nightly. cholecalciferol (Vitamin D3) 1,000 unit tablet Take 1,000 Units by mouth Daily. dilTIAZem CD (Cardizem CD) 300 mg CD (ER) 24 hr casule Take 1 capsule by mouth daily. meclizine (Antivert) 25 mg tablet Three times daily as needed. traMADoL (Ultram) 50 mg tablet Take 50 mg by mouth Every 6 hours as needed. apixaban (Eliquis) 5 mg Tablet 2 times daily. Current Medications: Scheduled Meds: dilTIAZem CD 300 mg Oral Daily cholecalciferoL 1,000 Units Oral Daily pravastatin 40 mg Oral QPM sodium chloride 0.9 % (flush) 5 mL Intravenous BID senna-docusate 2 tablet Oral BID polyethylene glycoL (MIRALAX) oral powder 17 g Oral Daily Past Medical & Surgical History: Past Medical History: Diagnosis Date Irregular heart beat Obstructive sleep apnea Past Surgical History: Procedure Laterality Date PRO LAPAROSCOPY W TOT HYSTERECTUTERUS <=250 GRAM W TUBE/OVARY N/A 04/23/2024 LAPAROSCOPY, TOTAL HYST, UTERUS<250GMS, REM TUBE &/OR OVARY (WRVU 15) performed by Xiomara Burkett MD at [facility] MAIN OR Allergy: Allergies Allergen Reactions Oxycodone-Acetaminophen Other (See Comments) Other reaction(s): hallucinations Alendronate Sodium Nausea Only Contact Metal Agent Family History: No family history on file. Social History Socioeconomic History Marital status: Spouse name: Not on file Number of children: Not on file Years of education: Not on file Highest education level: Not on file Occupational History Not on file Tobacco Use Smoking status: Former Current packs/day: 0.00 Average packs/day: 2.0 packs/day for 30.0 years (60.0 ttl pk-yrs) Types: Cigarettes Start date: 1972 Quit date: 2002 Years since quittin.4 Smokeless tobacco: Never Vaping Use Vaping status: Never Used Substance and Sexual Activity Alcohol use: Never Drug use: Never Sexual activity: Not on file Other Topics Concern Not on file Social History Narrative Not on file Social Determinants of Health Financial Resource Strain: Medium Risk (03/03/2024) Overall Financial Resource Strain (CARDIA) Difficulty of Paying Living Expenses: Somewhat hard Food Insecurity: Food Insecurity Present (03/03/2024) Hunger Vital Sign Worried About Running Out of Food in the Last Year: Often true Ran Out of Food in the Last Year: Sometimes true Transportation Needs: No Transportation Needs (03/03/2024) PRAPARE - Transportation Lack of Transportation (Medical): No Lack of Transportation (Non-Medical): No Physical Activity: Not on file Intimate Partner Violence: Not At Risk (04/23/2024) IPV Inpatient Questions Prevent Contact with Others: no Feels Threatened by Someone: no Feels Unsafe at Home: no Physical Signs of Abuse Present: no Housing Stability: Low Risk (03/03/2024) Housing Stability Vital Sign Unable to Pay for Housing in the Last Year: No Number of Places Lived in the Last Year: 1 Unstable Housing in the Last Year: No Review of systems: Neuro: See HPI Physical Exam: GCS Scale Vitals: Temp: [36.8 ??C (98.2 ??F)] Heart Rate: [68-75] Resp: [16-20] BP: (118-127)/(56-70) SpO2: [82 %-96 %] Heart Rate from SpO2: [69 bpm-75 bpm] Gen: Patient of apparent stated age, well nourished, well developed, awake, alert, NAD Neuro Exam: MS: AAOx4, clear language, no dysarthria, follows commands CN: PERRL, EOMI, left homonomous hemianopsia Facial sensation intact, no facial asymmetry Hearing intact to finger rub Palate elevates symmetrically, tongue protrudes midline SCM and trap strength intact Motor: Normal bulk and tone. 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 LE: 5/5 R, 5/5 L Hip flexion 5/5 R, 5/5 L Knee extension 5/5 R, 5/5 L Knee flexion 5/5 R, 5/5 L Foot dorsiflexion 5/5 R, 5/5 L Foot plantar flexion Sensation: Intact to light touch, Reflexes: DTRs 2+ R, 2+ L Biceps 2+ R, 2+ L Brachioradialis 2+ R, 2+ L Triceps 2+ R, 2+ L Patellar 2+ R, 2+ L Achilles tendon Toes - R down, L down Coordination: Finger to nose intact, no dysmetria Rapid alternating movements & finger tapping smooth and symmetric Heel-greene intact Has a noticeable postural tremor L>R Gait: deferred NIH Stroke Scale NIH Stroke Scale Date 05/06/24 NIH Stroke Scale Time 0230 Level of Consciousness 0 LOC Questions 0 LOC Commands 0 Best Gaze 0 Vision 2 Facial Palsy 0 Motor Arm, Left 0 Motor Arm, Right 0 Motor Leg, Left 0 Motor Leg, Right 0 Limb Ataxia 0 Sensory 0 Best Language 0 Dysarthria 0 Extinction and Inattention: 0 NIH Total Score 2 Your Prescription is Ready Labs: Recent Results (from the past 24 hour(s)) POCT Glucose Result Value Ref Range POC Glucose 110 65 - 199 mg/dL Assessment and Plan: Katina Arthur is a 74 y.o. female with PMHx of Afib on apixaban, CHRISTOPHER(not on CPAP), HLD, BMI of 36, who presents to OSH ED for evaluation of acute onset severe headache 2 days prior associated with nausea and vomiting as well as vision changes. Found to have R occipital IPH wo intraventricular extension or shift, s/p AC reversal at OSH, Transferred to [facility] for further management of IPH. Etiology of lobar hemorrhage unclear though could possibly be secondary to anticoagulation with possible CAA vs. Underlying lesion or vascular abnormality. However further imaging is needed in order to determine the etiology, therefore recommend MRI Brain wwo. Given the significant hemorrhage recommend ongoing withholding of anticoagulation. Will need to weigh risk versus benefit and appropriate timing of resuming anticoagulation for afib after confirmation of lack of progression/worsening bleed. Will also obtain other stroke workup for concern of bleed into infarct. Alteplase: Was IV Thrombolytics given?: No # R IPH - occipital lobe # L Homonomous hemianopsia # Bleed volume - approximately 10.7ml -ICH score 0 -Admit to neurology, NSCU level of care -Neuro check & vitals Q2hrs / Q2hrs -Head of bed 30 degrees -SBP goal of 130-150 with nicardipine drip for SBP greater than 150 -Hold anticoagulation -Check CBC, BMP, LFT, TSH, lipid profile, HbA1c, Mg, Phos, UA -TTE -12 lead EKG -Telemetry -MRI brain w/wo contrast -CTA head & neck -Serial CTH to check for stability of bleed -PT/OT # Atrial Fibrillation - on apixaban - Holding apixaban - s/p reversal with aPCC #Home meds continued - Diltiazem 300 - Pravastatin 40mg # Prophylaxis -SCDs # Supportive care -Regular diet -Tylenol PRN -Up with assistance # FULL code Stroke Navigator Completed: Yes Patient accepted for Transfer by Dr. Ruiz, arrived on 05/06. Umm Goodrich MD Neurology PGY2 Vascular Neurology Pager [phone] Neurology Attending Attestation I evaluated the patient with the Stroke Team during bedside rounds. I have reviewed the medical records and patient's history, as well as the resident???s history and examination findings and I agreewith the details as written. My neurologic examination confirms the resident???s findings. We formulated the assessment and plan after a detailed discussion, as documented. I have examined the patient myself and personally reviewed all studies. In addition, I certify thatI am a D-H credentialed attending provider with admitting privileges and that the patient meets or has met medical necessity to require an inpatient IPI level of care meeting a minimum of two midnights or is on the [facility] inpatient only procedure list (status C) due to: neurologic instability requiring neurologic checks at least every 4 hours. acute stroke requiring neurologic checks at least every 4 hours. MCCs and CCs on admission (Present if in bold): Clinically significant cerebral edema, vasogenic Hyponatremia CHF acute, systolic Brain compression Hypernatremia CHF acute on chronic, systolic Clinically significant cerebral edema, cytotoxic Cerebellar ataxia CHF acute on chronic, diastolic Coma Hypertension, malignant CHF acute diastolic Hemiplegia Hypertension accelerated CHFchronic diastolic Hemiparesis Hypertensive encephalopathy Dementia with delrium Quadraplegia Malnutrition BMI<19 Dementia with depression Encephalopathy, metabolic Cachexia Alzheimer's Dementia with behavioral disturbance Encephalopathy, toxic Morbid obesity, BMI>40 Anoxic brain damage Encephalopathy, other CKD stage 4 (eGFR 15-30ml/min/1.73m2) Acute Kidney Injury Delirium, drug induced CKD stage 5 or ESRD Gissell Velazco MD Vascular Neurology Standard [facility] Swallow Screen: This screen is to be [...] diet as medical provider deems appropriate. Consider INDUSTRIAL ENGINEERING TECHNICIAN consult for full evaluation and diet recommendations. If NO to any of the responses, stop immediately, keep patient NPO and notify physician. documented in this encounter Nursing Notes * Corinna Rutledge RN - 05/07/2024 6:43 AM EDT Pt went to CT scan had CT scan brain done earlier this shift 0540 went off the unit for MRI, procedure in progress documented in this encounter Miscellaneous Notes * Care Management - Luz Bhat RN - 05/08/2024 3:59 PM EDT Discharge instructions/teaching provided to Patient and Patient's significant other. Discharge Packet for [facility] also provided to patient. Patient and Patient's significant other verbalized understanding of instructions, and verbalized understanding that yellow packet is intended for staff at [facility]. Patient assisted to exit via wheelchair. Patient left ambulatory, with no s/s of distress. RN attempted to call report to [facility] x2. Will continue to call. * Plan of Care - Luz Bhat RN - 05/08/2024 1:21 PM EDT Problem: Adult Inpatient Plan of Care Goal: Plan of Care Review Outcome: Outcome (s) achieved Goal: Patient-Specific Goal (Individualized) Outcome: Outcome (s) achieved Goal: Absence of Hospital-Acquired Illness or Injury Outcome: Outcome (s) achieved Goal: Optimal Comfort and Wellbeing Outcome: Outcome (s) achieved Goal: Readiness for Transition of Care Outcome: Outcome (s) achieved Problem: Intracranial Hemorrhage Goal: Absence of Acute Neurologic Symptoms Outcome: Outcome (s) achieved Problem: Pain Acute Goal: Acceptable Pain Control and Functional Ability Outcome: Outcome (s) achieved Problem: Fall Injury Risk Goal: Absence of Fall and Fall-Related Injury Outcome: Outcome (s) achieved * Care Management Discharge - Franchesca Bailey RN - 05/08/2024 12:37 PM EDT CARE MANAGEMENT FINAL DISCHARGE NOTE Chart reviewed, care reviewed with primary team and at interdisciplinary rounds. Patient is medically ready for discharge to Acute rehab at [facility] Needs for Transition of Care: Plan for discharge is: Acute Rehab Agency Referrals & Follow-up Care: [facility] PHONE: [phone] FAX: [phone] Nurse to Nurse report: [phone] [address] [place] [address] Transportation: family or friend will provide Functional status prior to admission: Independent Home Environment: Others in the home: alone, pet(s). Current Living Arrangements: home/apartment/condo. Accessibility Concerns:2 levels, bedrooms upstairs. Current Functional Ability: Assistive Person and Equipment Patient is insured through: Primary Insurance: MEDICARE Payor: MEDICARE / Plan: MEDICARE PART A & B / Product Type: *No Product type* / Secondary Insurance: MEDICAID [place] Prescription Coverage: No This plan was formulated with input from patient, and team. All are in agreement with plan. * Plan of Care - Virgen Olmos RN - 05/08/2024 3:32 AM EDT OUTCOME EVALUATION NOTE: OUTCOME SUMMARY: Pt AAOx4, full sensation, 4/5 strength, remains on RA, ambulated with walker stand-by assist to toilet x2, PRN tylenol given 2x for CABA, Protonix added as PRN in case of heart burn (patient stated that she can get heart burn after taking tylenol); PRN Protonix given 1x. telemetry showed ST-II elevated; patient not symptomatic (MD notified/aware; STAT EKG obtained). PLAN MOVING FORWARD: q2 VS, q2 neuro, q4 I&O, syst <160 INDIVIDUALIZED FALL PREVENTION INTERVENTIONS: Patient-specific fall risk factors per assessment: [current deficits]: IV line, O2 cord Assistance [level of assistance required for transfers and ambulation]: stand-by assist with walker Supervision [direct monitoring required during toileting and ADLs]: stand-by assist Surveillance [continuous indirect monitoring]: Telemetry, SaO2 Patient-specific fall prevention interventions for sensory deficits provided, if applicable: [X] N/A CARE PLAN GOAL OUTCOME EVALUATION: Problem: Adult Inpatient Plan of Care Goal: Plan of Care Review Outcome: Ongoing (Interventions Implemented as Appropriate) Goal: Patient-Specific Goal (Individualized) Outcome: Ongoing (Interventions Implemented as Appropriate) Goal: Absence of Hospital-Acquired Illness or Injury Outcome: Ongoing (Interventions Implemented as Appropriate) Goal: Optimal Comfort and Wellbeing Outcome: Ongoing (Interventions Implemented as Appropriate) Goal: Readiness for Transition of Care Outcome: Ongoing (Interventions Implemented as Appropriate) Problem: Intracranial Hemorrhage Goal: Absence of Acute Neurologic Symptoms Outcome: Ongoing (Interventions Implemented as Appropriate) Problem: Pain Acute Goal: Acceptable Pain Control and Functional Ability Outcome: Ongoing (Interventions Implemented as Appropriate) Problem: Fall Injury Risk Goal: Absence of Fall and Fall-Related Injury Outcome: Ongoing (Interventions Implemented as Appropriate) * Plan of Care - Odalys Crane RN - 05/07/2024 5:37 PM EDT Problem: Adult Inpatient Plan of Care Goal: Plan of Care Review Outcome: Ongoing (Interventions Implemented as Appropriate) Goal: Patient-Specific Goal (Individualized) Outcome: Ongoing (Interventions Implemented as Appropriate) Goal: Absence of Hospital-Acquired Illness or Injury Outcome: Ongoing (Interventions Implemented as Appropriate) Goal: Optimal Comfort and Wellbeing Outcome: Ongoing (Interventions Implemented as Appropriate) Goal: Readiness for Transition of Care Outcome: Ongoing (Interventions Implemented as Appropriate) Problem: Intracranial Hemorrhage Goal: Absence of Acute Neurologic Symptoms Outcome: Ongoing (Interventions Implemented as Appropriate) Problem: Pain Acute Goal: Acceptable Pain Control and Functional Ability Outcome: Ongoing (Interventions Implemented as Appropriate) Problem: Fall Injury Risk Goal: Absence of Fall and Fall-Related Injury Outcome: Ongoing (Interventions Implemented as Appropriate) * Care Management - Katherine Apple RN - 05/07/2024 4:01 PM EDT OFFICE OF CARE MANAGEMENT PROGRESS NOTE LOS: Hospital Day 1 day Chart reviewed, care reviewed with primary team and at interdisciplinary rounds. Patient continues to meet inpatient level of care related to: stroke Decision Maker: Self Functional status prior to admission: Home Environment: . Current Living Arrangements: home/apartment/condo. Accessibility Concerns: . none Current Functional Ability: Assistive Person and Equipment DME used at home: none DME Needed at Discharge: No Patient is insured through: Primary Insurance: MEDICARE Payor: MEDICARE / Plan: MEDICARE PART A & B / Product Type: *No Product type* / Secondary Insurance: MEDICAID [place] Last Physical Therapy Recommendation: acute rehabilitation facility with to be determined Last Occupational Therapy Recommendation: acute rehabilitation facility with to be determined Plan for discharge is: Acute Rehab Transition Plan for After Rehab: home alone Outpatient Agency/Support Group Needs: None Agency Referrals: Based on discussions with the multi-disciplinary healthcare team, the patient would benefit from Acute Rehab level of care at discharge. I have met with the patient to: discuss discharge planning needs. provide the [facility], Office of Care Management letter from the Aircraft Maintenance Instructor pertaining to rehab referrals. provide a letter describing our affiliations within the [facility] and educate about their right to choose where referrals are sent. provide the CMS Star Quality Rating handout. review the different levels of rehab including SNF, swing, and acute. provide a list of facilities within their preferred geographic area. request that they provide at least three choices for referral. They have requested referrals to: [address] [address] Nurse to Nurse report: Does patient have COVID vaccine card: No Note routed to a Telecommunication Operator who will communicate referrals to facilities and provide any required information. Transportation: friend probably but will need to arrange Barriers to discharge: None Plan going forward: Referral placed for acute rehab post stroke. She is a very independent woman who is looking to get back to her cats and friend as soon as possible. Care Management will continue to follow and assist with discharge planning and coordination of care as indicated. Anticipated Date of Discharge: 05/10/2024 * Plan of Care - Corinna Rutledge RN - 05/07/2024 3:46 AM EDT Alert Ox4, strength 4/5 all limbs, significant decreased vision left eye, denies numbness & tingling CT brain done, MRI test to be done tomorrow On Room air no respiratory distress Sinus rhythm VSS B/P stabel Ambulates to bathroom with walker, no assist needed to go from bed to standing C/O headache 5/10 tylenol give resolved. Skin intact Plan PT & Rehab review Problem: Pain Acute Goal: Acceptable Pain Control and Functional Ability Outcome: Ongoing (Interventions Implemented as Appropriate) Problem: Fall Injury Risk Goal: Absence of Fall and Fall-Related Injury Outcome: Ongoing (Interventions Implemented as Appropriate) Problem: Adult Inpatient Plan of Care Goal: Optimal Comfort and Wellbeing Outcome: Ongoing (Interventions Implemented as Appropriate) Problem: Adult Inpatient Plan of Care Goal: Plan of Care Review Outcome: Ongoing (Interventions Implemented as Appropriate) * Initial Assessments - Katherine Apple RN - 05/06/2024 5:00 PM EDT Office of Care Management Initial Assessment Katherine Apple RN reviewed record and discussed patient with Care Team. Source of Information: Team, bedside nurse, medical record, and Patient Face to face Introduced self/reviewed role; services accepted. Admitted From: Home Reason for Hospitalization: Brain Bleed Covid Vaccination Status: 1st, 2nd & booster Last COVID test: Past medical History: Past Medical History: Diagnosis Date Irregular heart beat Obstructive sleep apnea Hospitalizations Within the Past 30 Days: no previous admission in last 30 days Current Decision-Making Capacity: Self If AD's have not been completed the following surrogate would be surrogate decision maker per [place] surrogate decision making law. (Only good for 180 days) Any patient receiving care in [place] must abide by [place] law. The hierarchy for surrogate decision making is: (a) Patient???s spouse or civil union partner unless there is a divorce proceeding, separation agreement, or restraining order limiting that person???s relationship with the patient. (b) Any adult son or daughter of the patient. (c) Either parent of the patient. (d) Any adult brother or sister of the patient. (e) Any adult grandchild of the patient. (f) Any grandparent of the patient. (g) Any adult aunt, uncle, niece, or nephew of the patient. (h) A close friend of the patient. (i) The agent with financial power of supervisor chassis assembly or a conservator appointed in accordance with RSA 464-A. (j) The guardian of the patient???s estate. Advance Care Planning: Attempt Cardiopulmonary Resuscitation - Inpatient <no information> -Advanced Directive: No, need to discuss Who is your DPOA-HC?: Child Current Coping/Education/Information Needs: denies Current Functional Ability: Assistive Equipment and Assistive Person Functional Status Prior to Admission: Independent Home Environment: Others in the home: alone, pet(s). Current Living Arrangements: home/apartment/condo. Accessibility Concerns:2 levels, bedrooms upstairs. In the last 12 months, was there a time when you were not able to pay the mortgage or rent on time?: No In the past 12 months, how many times have you moved where you were living?: 1 At any time in the past 12 months, were you homeless or living in a senior care (including now)?: No In the past 12 months has the [employer], gas, oil, or water [employer] Plan threatened to shut off services in your home?: No Within the past 12 months, you worried that your food would run out before you got the money to buymore.: Sometimes true Within the past 12 months, the food you bought just didn't last and you didn't have money to get more.: Sometimes true Resource / Environmental Concerns: Resource/Environmental Concerns: none Home Accessibility Concerns: stairs to enter home In the past 12 months, has lack of transportation kept you from medical appointments or from getting medications?: No In the past 12 months, has lack of transportation kept you from meetings, work, or from getting things needed for daily living?: No Current DME: Home Address confirmed as: [address] [address] Social & Family Supports: All names listed below confirmed with patient as current and correct Extended Emergency Contact Information Primary Emergency Contact: Don Pollard Mobile Relation: Child Current Care Provided by: self Provides Primary Care For: no one Caregiver if needed: none Quality of Family relationships: other (see comments) (pt states son lives across state and has little free time) Community Resources being provided currently: inpatient rehabilitation facility Behavioral Health History: denies Substance Use/Abuse confirmed: Social History Tobacco Use Smoking Status Former Current packs/day: 0.00 Average packs/day: 2.0 packs/day for 30.0 years (60.0 ttl pk-yrs) Types: Cigarettes Start date: 1972 Quit date: 2002 Years since quittin.4 Smokeless Tobacco Never In the past year have you used an illegal drug or used a prescription medication for non-medical reasons?: No 0 No problems reported 1-2 Low level 3-5 Moderate level 6-8 Substantial level 9- 10 Severe level In the past year have you had 4 or more drinks a day containing alcohol?: No 0 to 7 points: Low risk 8 to 15 points: Medium risk 16 to 19 points: High risk 20 to 40 points: Addiction likely Other Pertinent/Service Specific Information: Wants to go home to rehab, has a friend that can staywith her. Health/Prescription Coverage: Primary Insurance: MEDICARE Payor: MEDICARE / Plan: MEDICARE PART A & B / Product Type: *No Product type* / Secondary Insurance: MEDICAID [place] ; Prescription Coverage: No Preferred Pharmacy: [id number] - [place], [place] - [address] [place] [id number] [place] Status: Patient is a : No Are you enrolled in the [place] for your healthcare?: No Primary Care Provider confirmed: Dorita Zimmerman APRN [phone] Patient/Caregiver Goals of Treatment: wants to go home to cats Potential Needs for Transition of Care: rehabilitation services Agency Referrals: Not Applicable Transportation: no concerns Transportation Anticipated: family or friend will provide Concerns to be Addressed: denies needs/concerns at this time Assessment: Patient is admitted to neuro stroke service for brain bleed Plan: MRI pending, discharge planning based on therapy referrals A member of the Care Management team will continue to monitor progress, follow for continuity of care and assist with transition of care planning. * Plan of Care - Luz Bhat RN - 05/06/2024 4:00 PM EDT Problem: Adult Inpatient Plan of Care Goal: Plan of Care Review Outcome: Ongoing (Interventions Implemented as Appropriate) Goal: Patient-Specific Goal (Individualized) Outcome: Ongoing (Interventions Implemented as Appropriate) Goal: Absence of Hospital-Acquired Illness or Injury Outcome: Ongoing (Interventions Implemented as Appropriate) Goal: Optimal Comfort and Wellbeing Outcome: Ongoing (Interventions Implemented as Appropriate) Goal: Readiness for Transition of Care Outcome: Ongoing (Interventions Implemented as Appropriate) Problem: Intracranial Hemorrhage Goal: Absence of Acute Neurologic Symptoms Outcome: Ongoing (Interventions Implemented as Appropriate) Problem: Pain Acute Goal: Acceptable Pain Control and Functional Ability Outcome: Ongoing (Interventions Implemented as Appropriate) Problem: Fall Injury Risk Goal: Absence of Fall and Fall-Related Injury Outcome: Ongoing (Interventions Implemented as Appropriate) * Initial Assessments - Areli Hathaway, INDUSTRIAL ENGINEERING TECHNICIAN - 05/06/2024 3:19 PM EDT Speech Therapy Clinical Swallow Evaluation Patient Profile: Katina Arthur is a 74 y.o. female with PMHx of A-fib on apixaban, CHRISTOPHER, HLD, essential tremor, GERD, osteoporosis, prediabetes, psoriasis, chronic pain, abnormal uterine bleeding s/p hysterectomy, and asthma who presented to [facility] on [place]/[facility]24 with acute-onset severe headaches with nausea, vomiting, and vision changes and was found to have a R occipital IPH, now s/p PCC for anticoagulant reversal. INDUSTRIAL ENGINEERING TECHNICIAN was consulted on 05/06 for a clinical swallow evaluation per CVA protocol. Prior Level of Function: Patient denies history of speech, language, cognitive, or swallowing disorder. She tolerates a regular diet at baseline. Relevant Imaging: CT Head & Neck (05/06/2024) IMPRESSION Mildly increased size of right occipital hematoma, without associated contrast extravasation, or associated abnormal vascularity noted. Mild luminal irregularity and ectasia of the distal cervical ICA on the right side without accompanying atherosclerotic plaque or dissection flap. Otherwise negative CTA of the head and neck. Subjective: Patient was pleasant and cooperative with care. Objective: Patient seen for evaluation today. Pain: Reports 2/10 headache Respiratory Status: Room air, satting 96% Vision: Homonymous hemianopsia (left field cut in both eyes) Hearing: Functional for evaluation Current Diet: Regular diet Feeding and Oral Care: Independent, benefits from intermittent cues to locate items on table Cognitive-Linguistic Status: A&Ox4 Good recall for medical history Recalled multiple vision strategies taught by other providers independently Follows Commands: Follows multi-step commands Positioning: Seated at EOB Oral Motor Examination: WFL Impaired Comments STRUCTURES Facial Symmetry X No gross asymmetry Lips X Tongue X Jaw X Palate/Velum X Dentition X Missing right upper teeth and multiple others; visible decay OTHER Phonation X Intelligibility X Volitional Cough X Sensation X Per patient report Secretion Management X Bolus Presentation(s): Tested Comments Thin liquids X Triumph thick liquids Honey thick liquids Pureed solids X Dysphagia soft Mechanical soft Regular solids X Pills Other Oral Preparatory Phase Mastication: Brisk Oral transit: Timely Bolus cohesion: Appears intact Oral containment: Complete, no anterior loss Oral stasis: None Pharyngeal Phase Swallow initiation: Prompt Vocal quality change: None Cough / throat clear: None Pt complaint of food getting stuck: None Fatigue across trials: None Respiratory rate and respiratory swallow pattern: Unlabored and coordinated Esophageal Phase No overt clinical s/sx of esophageal dysphagia noted during this evaluation. Compensatory Techniques: Instructed patient on techniques for visual scanning including using her hand to identify the edges of her table, asking staff to identify food items on tray prior to starting meals, and strategic item placement. Patient verbalized understanding. RISK FACTORS FOR ASPIRATION PNEUMONIA X Stroke or other neurological disease X + number decayed teeth, poor oral hygiene COPD, CHF Dependency for oral care and/or feeding GI disease, especially esophageal dysmotility Reduced mobility, bed bound Active tobacco use Use of tube feed, especially via NGT/DHT Immunocompromised HOB below 30 degrees Use of sedating medications or PPI UTI Reduced level of alertness and/or delirium X Advanced age Education: Patient educated on results and recommendations, and verbalized understanding. Patient status and swallow recommendations were discussed with nursing. Assessment: Katina Doshi was seen for a clinical swallow evaluation. Oral motor examination revealed multiple missing teeth without functional impact on speech or swallow function. Aubree completed PO trials of various consistencies without difficulty. Overall, oropharyngeal swallow appears u naffected and functional for continuation of a regular diet. Aubree benefited from use of strategies for visual scanning to identify items on her table. No swallowing intervention is indicated at this time. We will follow up 1-2 more times to discuss visual strategies for reading and other communication-related activities then likely discharge from INDUSTRIAL ENGINEERING TECHNICIAN services given no acute change in status. Diagnosis: Functional oropharyngeal swallow, homonymous hemianopsia impacting reading abilities Recommendations: Diet: Regular solids, Thin liquids PO Medications: whole with sip of liquid Aspiration Precautions: Excellent oral care to reduce risk of aspiration pneumonia Pt will benefit from continued INDUSTRIAL ENGINEERING TECHNICIAN services while hospitalized. Speech Therapy Goals: (To be met by discharge) Pt will participate in ongoing cognitive-linguistic evaluation/intervention as indicated. Plan: Therapy Frequency (INDUSTRIAL ENGINEERING TECHNICIAN Eval): 1-2 more times Patient is in agreement with the plan of care. Total Minutes (Speech Language Pathology): 40 Thanks for the opportunity to contribute to this patient's care. Please feel free to page me with any questions or concerns. Areli Hathaway MS, CCC-INDUSTRIAL ENGINEERING TECHNICIAN Speech-Language Pathologist Inpatient Rehabilitation Pager # [phone] * Plan of Care - Rae Barney RN - 05/06/2024 4:18 AM EDT 74 year old female who was transferred from an OSH for care due to an intracranial bleed. She is alert and oriented x4, EOMI, obeys command, speech clear and fluent, 5/5 strength throughout, denies numbness and tingling. Had significant tremors in left hand which shakes violently when holding objects. Also has a left lateral visual field cut, and mild headache which she rates 2/10. Admitted to unit and oriented to room, now resting quietly in bed in no acute distress. Problem: Adult Inpatient Plan of Care Goal: Plan of Care Review Outcome: Ongoing (Interventions Implemented as Appropriate) Goal: Absence of Hospital-Acquired Illness or Injury Outcome: Ongoing (Interventions Implemented as Appropriate) Intervention: Prevent Infection Flowsheets (Taken 05/06/2024147) Infection Prevention: single patient room provided rest/sleep promoted hand hygiene promoted environmental surveillance performed Goal: Optimal Comfort and Wellbeing Outcome: Ongoing (Interventions Implemented as Appropriate) Intervention: Provide Person-Centered Care Flowsheets (Taken 05/06/2024 014) Trust Relationship/Rapport: care explained choices provided emotional support provided empathic listening provided questions answered questions encouraged reassurance provided thoughts/feelings acknowledged Problem: Intracranial Hemorrhage Goal: Absence of Acute Neurologic Symptoms Outcome: Ongoing (Interventions Implemented as Appropriate) Intervention: Protect and Optimize Cerebral Perfusion Flowsheets (Taken 05/06/2024 0416) Cerebral Perfusion Promotion: normothermia maintained stimulation minimized Glycemic Management: blood glucose monitored Seizure Precautions (Infant): emergency equipment at bedside Problem: Fall Injury Risk Goal: Absence of Fall and Fall-Related Injury Outcome: Ongoing (Interventions Implemented as Appropriate) Intervention: Promote Injury-Free Environment Flowsheets (Taken 05/06/2024 014) Safety Promotion/Fall Prevention: activity supervised clutter free environment maintained fall prevention program maintained nonskid shoes/slippers when out of bed room organization consistent safety round/check completed documented in this encounter Plan of Treatment Upcoming Encounters Date Type Department Care Team (Late st Contact Info) Description 11/04/2024 11:15 AM EST Appointment Non-[place] [address] 11/10/2024 8:00 AM EST Office Visit Neurology at [place] [address] Clarisse Duke APRN [facility] [place] [address] 11/15/2024 10:[address] Scan at [address] Karli Morales MD [facility] [place] [address] 11/15/2024 11:20 AM EST Office Visit Neurosurgery at [place] [phone] Marvin Kimball PA [facility] [place] [address] 12/15/2024 4:40 PM EST TH Visit (TeleHealth) Cardiology at [place] [phone] Duane Causey MD [facility] [place] [address] Scheduled Referrals Name Type Priority Associated Diagnoses Orde r Schedule Referral to Cardiology Outpatient Referral Routine PAF (paroxysmal atrial fibrillation) Right occipital hemorrhage, anticoagulation associated, 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 Ordered: 05/08/2024 documented as of this encounter Procedures Procedure Name Priority Date/Time Associated Diagnosis Comments CT HEAD WO CONTRAST (GENERIC) Routine 05/08/2024 11:09 AM EDT EKG 12-LEAD STAT 05/08/2024 6:22 AM EDT Chest pain, unspecified type HEMOGRAM Routine 05/08/2024 1:21 AM EDT DIFFERENTIAL, AUTOMATED Routine 05/08/2024 1:21 AM EDT HC PARTIAL THROMBOPLASTIN TIME Routine 05/08/2024 1:21 AM EDT PROTHROMBIN TIME Routine 05/08/2024 1:21 AM EDT CBC (WITH DIFF) Routine 05/08/2024 1:21 AM EDT PHOSPHORUS Routine 05/08/2024 1:21 AM EDT MAGNESIUM Routine 05/08/2024 1:21 AM EDT HEPATIC FUNCTION PANEL Routine 4 1:21 AM EDT BASIC METABOLIC PANEL Routine 05/08/2024 1:21 AM EDT MRI BRAIN WWO CONTRAST (GENERIC) Routine 05/07/2024 7:01 AM EDT HC PARTIAL THROMBOPLASTIN TIME Routine 05/07/2024 1:57 AM EDT PROTHROMBIN TIME Routine 05/07/2024 1:57 AM EDT PHOSPHORUS Routine 05/07/2024 1:57 AM EDT MAGNESIUM Routine 05/07/2024 1:57 AM EDT HEPATIC FUNCTION PANEL Routine 4 1:57 AM EDT BASIC METABOLIC PANEL Routine 05/07/2024 1:57 AM EDT HEMOGRAM Routine 05/07/2024 1:55 AM EDT DIFFERENTIAL, AUTOMATED Routine 05/07/2024 1:55 AM EDT CBC (WITH DIFF) Routine 05/07/2024 1:[address] HEAD WO CONTRAST (GENERIC) STAT 05/07/2024 1:19 AM EDT RAPID DRUG SCREEN, URINE Routine 05/06/2024 12:30 PM EDT RAPID DRUG SCREEN W/ CONFIRMATION, URINE Routine 05/06/2024 12:30 PM EDT URINALYSIS WITH REFLEX CULTURE Routine 05/06/2024 12:30 PM EDT EKG 12-LEAD STAT 05/06/2024 11:17 AM EDT Intracranial hemorrhage ECHO COMPLETE W CONTRAST Routine 05/06/2024 10:51 AM EDT Intracranial hemorrhage HEMOGRAM Routine 05/06/2024 9:51 AM EDT DIFFERENTIAL, AUTOMATED Routine 05/06/2024 9:51 AM EDT HC PARTIAL THROMBOPLASTIN TIME Routine 05/06/2024 9:51 AM EDT PROTHROMBIN TIME Routine 05/06/2024 9:51 AM EDT CBC (WITH DIFF) Routine 05/06/2024 9:51 AM EDT PHOSPHORUS Routine 05/06/2024 9:51 AM EDT MAGNESIUM Routine 05/06/2024 9:51 AM EDT COMPREHENSIVE METABOLIC PANEL Routine 05/06/2024 9:[address] CAROTIDS [place] W CONTRAST Routine 05/06/2024 6:[address] HEAD WO CONTRAST (GENERIC) Routine 05/06/2024 6:59 AM EDT TSH CASCADE Routine 05/06/2024 5:48 AM EDT HEMOGLOBIN A1C Routine 05/06/2024 5:48 AM EDT LIPID PANEL (REFLEX DIRECT LDL) Routine 05/06/2024 5:48 AM EDT POCT GLUCOSE Routine 05/06/2024 1:48 AM EDT documented in this encounter Results * CT Head wo Contrast (Generic) (05/08/2024 11:09 AM EDT) [employer] WORKSTATION ID [id number] RAD Anatomical Region Laterality Modality Head Computed Tomogra phy Impressions 05/08/2024 11:35 AM EDT No significant interval change. Thank you for letting us participate in the care of this patient. ??If you are a health care provider and have any questions regarding this report, please contact the number below. ??For patients who have questions please contact the health health care liaison that requested your imaging first. ? Electronically signed by: Celeste Ramos MD, [facility] ([phone]), at 05/08/2024 11:35 AM Narrative 05/08/2024 11:35 AM EDT EXAMINATION: CT HEAD WO CONTRAST (GENERIC) CLINICAL HISTORY: R occipital IPH, MRI with interval bleed with IVH, serial image for stability requesting 05/08 AM TECHNIQUE: CT head performed without intravenous contrast administration. COMPARISON: CT head 05/07/2024 FINDINGS: Similar moderate size intraparenchymal hemorrhage in the right occipital lobe with surrounding vasogenic edema and local mass effect. No midline shift. The basal cisterns remain patent. No evidence of large acute territorial infarction. The osseous structures are stable. Procedure Note Celeste Ramos MD - 05/08/2024 EXAMINATION: CT HEAD WO CONTRAST (GENERIC) CLINICAL HISTORY: R occipital IPH, MRI with interval bleed with IVH,serial image for stability requesting 6/15 AM TECHNIQUE: CT head performed without intravenous contrast administration. COMPARISON: CT head 05/07/2024 FINDINGS: Similar moderate size intraparenchymal hemorrhage in the right occipitallobe with surrounding vasogenic edema and local mass effect. No midline shift.The basal cisterns remain patent. No evidence of large acute territorialinfarction. The osseous structures are stable. IMPRESSION No significant interval change. Thank you for letting us participate in the care of this patient. If youare a health care provider and have any questions regarding this report,please contact the number below. For patients who have questions please contactthe health health care liaison that requested your imaging first. Electronically signed by: Celeste Ramos MD, [facility]([phone]), at 05/08/2024 11:35 AM Gissell Velazco MD IMG CT ORDERABLES * EKG 12 Lead (05/08/2024 6:22 AM EDT) Ventricular rate 68 BPM MUSE SYSTEM Atrial Rate 68 BPM MUSE SYSTEM P-R Interval 178 ms MUSE SYSTEM QRS Duration 72 ms MUSE SYSTEM Q-T Interval 374 ms MUSE SYSTEM QTC Calculated (Bezet) 397 ms MUSE SYSTEM Calculated P [place] 37 degrees MUSE SYSTEM Calculated R [place] -25 degrees MUSE SYSTEM Calculated T [place] 24 degrees MUSE SYSTEM INTERPRETATION Normal sinus rhythm Normal ECG When compared with ECG of 06-MAY-2024 11:17, Borderline criteria for Anterolateral infarct are no longer Present Confirmed by MD BAYRON, MARY ([id number]) on 05/08/2024 12:29:13 PM MUSE SYSTEM 05/08/2024 6:22 AM EDT 05/08/2024 12:29 PM EDT Gissell Velazco MD ECG ORDERABLES MUSE SYSTEM * (ABNORMAL) Differential, Automated (05/08/2024 1:21 AM EDT) Neutrophil % 67.2 % [facility] Neutrophil Absolute 8.50(H) 1.70 - 6.10 x10(3)/mc L [facility] Lymph % 23.2 % [facility] Lymphocytes Abs 2.9 0.9 - 3.2 x10(3)/ L [facility] Monocyte % 7.2 % [facility] Monocyte Abs 0.9 0.3 - 0.9 x10(3)/ L [facility] Eos % 1.7 % [facility] Eosinophils Abs 0.2 0.0 - 0.4 x10(3)/[facility] Basophil % 0.2 % [facility] Baso Absolute 0.0 0.0 - 0.1 x10(3)/ L [facility] Immature Gran % 0.50 % [facility] Comment: Immature granulocytes(IG's)percentage and absolute count will include metamyelocytes, myelocytes, and promyelocytes. Blood smears from CBCs yielding IG's will be scanned manually for concordance. If this scan disagrees with the automated IG or if promyelocytes are noted, a manual differential will be performed. Immature Gran Absolute 0.06(H) 0.00 - 0.04 x10(3)/mc L [facility] Blood 05/08/2024 1:21 AM EDT 05/08/2024 1:32 AM EDT Narrative Resulting Agency Comment Spec In Lab Umm Goodrich MD HEMATOLOGY ORDERABLE S [facility] [place] [address] * (ABNORMAL) Hemogram (05/08/2024 1:21 AM EDT) White Blood Cell 12.6(H) 4.0 - 9.5 x10(3)/[facility] Red Blood Cell 4.77 4.00 - 5.21 x10(6)/[facility] Hemoglobin 14.6 11.7 - 15.5 g/dL [facility] Hematocrit 41.9 35.7 - 45.8 % [facility] Mean Cell Volume 87.8 82.6 - 94.4 fL [facility] Mean Cell Hemoglobin 30.6 27.1 - 32.0 pg [facility] Mean Cell Hemoglobin Concentration 34.8 31.7 - 35.0 g/dL [facility] Platelet 246 145 - 357 x10(3)/[facility] RDW Standard Deviation 42.1 37.0 - 46.0 [facility] RDW coefficient of variation 13.0 11.5 - 14.1 % [facility] Mean Platelet Volume 9.8 7.6 - 12.9 fL [facility] NRBC% auto 0.0 % [facility] NRBC Absolute 0.000 0.000 - 0.000 x10(3)/[facility] Blood 05/08/2024 1:21 AM EDT 05/08/2024 1:32 AM EDT Narrative Resulting Agency Comment Spec In Lab Umm Goodrich MD HEMATOLOGY ORDERABLE S [facility] [place] [address] * Phosphorus (05/08/2024 1:21 AM EDT) Phosphorus 3.1 2.5 - 4.5 mg/dL [facility] Blood 05/08/2024 1:21 AM EDT 05/08/2024 1:32 AM EDT Narrative Resulting Agency Comment Spec In Lab Teresa Ruiz MD CHEMISTRY ORDERABLE S [facility] [place] [address] * Magnesium (05/08/2024 1:21 AM EDT) Magnesium 0.85 0.69 - 1.07 mmol/L [facility] Blood 05/08/2024 1:21 AM EDT 05/08/2024 1:32 AM EDT Narrative Resulting Agency Comment Spec In Lab Teresa Ruiz MD CHEMISTRY ORDERABLE S Performing Organization Address [facility] Co de Phone Number [facility] [place] [address] * (ABNORMAL) Basic Metabolic Panel (non-fasting) (05/08/2024 1:21 AM EDT) Glucose 114 65 - 199 mg/dL [facility] Comment:Diabetes: >=200 mg/d L plus symptoms Blood Urea Nitrogen 14 8 - 18 mg/dL [facility] Creatinine 0.68(L) 0.70 - 1.20 mg/dL [facility] Sodium 141 135 - 145 mmol/L [facility] Potassium 4.2 3.5 - 5.0 mmol/L [facility] Comment: Please note: ??Patients with WBC >100,000 may have falsely elevated Potassium levels. ??For accurate Potassium quantification in these patients send serum separator tube (gold top) for subsequent determinations. ??Contact the Clinical Chemistry Laboratory if there are any questions. Chloride 105 98 - 107 mmol/L [facility] Carbon Dioxide 25 22 - 31 mmol/L [facility] Anion Gap 11 5 - 15 mmol/L [facility] Calcium 9.2 8.5 - 10.5 mg/dL [facility] Est Glomerular Filtration Rate 92 >=60 mL/min/1. 73 m?? [facility] Comment: This patient's estimated GFR [...] urine creatinine clearance. Assignment of CKD stage 1-5 for patients with an eGFR near the transition point between stages may be based on clinical assessment of muscle mass and symptoms in addition to eGFR. Blood 05/08/2024 1:21 AM EDT 05/08/2024 1:32 AM EDT Narrative Resulting Agency Comment Spec In Lab Teresa Ruiz MD CHEMISTRY ORDERABLE S Performing Organization Address [facility] Co de Phone Number [facility] [place] [address] * APTT (05/08/2024 1:21 AM EDT) Partial Thromboplastin Time 29 25 - 37 sec [facility] Comment: The PTT is NOT appropriate for heparin monitoring. Use the Anti-Xa level for heparin monitoring (HEP UFH) or LMWH monitoring (HEP LMW). A PTT less than 37 seconds generally indicates adequate hemostasis. Blood 05/08/2024 1:21 AM EDT 05/08/2024 1:32 AM EDT Narrative Resulting Agency Comment Spec In Lab Teresa Ruiz MD HEMATOLOGY ORDERABL ES Performing Organization Address [facility] Co de Phone Number [facility] [place] [address] * Prothrombin Time (05/08/2024 1:21 AM EDT) Prothrombin Time 11.8 9.4 - 12.5 sec [facility] International Normalization Ratio 1.0 [facility] Comment: An INR <2.0 indicates adequate procoagulant activity for hemostasis in most patients without underlying bleeding disorders, though the INR may not adequately reflect hemostatic capacity in patients with liver disease and synthetic impairment. The recommended target INR range for therapeutic anticoagulation is 2.0 ? 3.0 for most applications, though lower and higher ranges may be appropriate depending on clinical circumstances. Blood 05/08/2024 1:21 AM EDT 05/08/2024 1:32 AM EDT Narrative Resulting Agency Comment Spec In Lab Teresa Ruiz MD HEMATOLOGY ORDERABL ES Performing Organization Address [facility]/ZIP Co de Phone Number [facility] [place] [address] * Hepatic Function Panel (05/08/2024 1:21 AM EDT) [facility] Protein, Total 6.2 6.1 - 8.0 g/dL [facility] Albumin 3.7 3.2 - 5.2 g/dL [facility] Aspartate Aminotransferase 15 0 - 30 unit/L [facility] Alanine Aminotransferase 14 0 - 30 unit/L [facility] Alkaline Phosphatase 92 35 - 105 unit/L [facility] Bilirubin, Total 0.4 0.2 - 1.3 mg/dL [facility] Bilirubin, Direct 0.1 0.0 - 0.3 mg/dL [facility] Blood 05/08/2024 1:21 AM EDT 05/08/2024 1:32 AM EDT Narrative Resulting Agency Comment Spec In Lab Teresa Ruiz MD CHEMISTRY ORDERABLE S Performing Organization Address [facility] Co de Phone Number [facility] [place] [address] * MRI Brain wwo Contrast (Generic) (05/07/2024 7:01 AM EDT) [employer] WORKSTATION ID [id number] DH RAD Anatomical Region Laterality Modality Head Magnetic Resonan ce Impressions 05/07/2024 8:48 AM EDT 1. ??New 1.6 cm hemorrhagic anterior to grossly stable 4.2cm right occipital hemorrhage with intraventricular extension with mild surrounding edema and sulcal effacement. 2. ??Multiple right parieto-occipital and posterior temporal cortical/subcortical microhemorrhages and chronic right anterior frontal subcortical hemosiderin staining. 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 3. ??No enhancing mass or vascular malformation. Thank you for letting us participate in the care of this patient. ??If you are a health care provider and have any questions regarding this report, please contact the number below. ??For patients who have questions please contact the health health care liaison that requested your imaging first. ? Electronically signed by: Smiley Cordova MD, [facility] ([phone]), at 05/07/2024 8:48 AM Narrative 05/07/2024 8:48 AM EDT EXAMINATION: MRI BRAIN WWO CONTRAST (GENERIC) CLINICAL HISTORY: intraparenchymal hemorrhage of unknown cause TECHNIQUE: MRI of the brain was performed before and after the intravenous administration of cc Dotarem. COMPARISON: CT head May 07, 2024 FINDINGS: A 4.2 x 2.0 cm right occipital [...] sulci with enhancement of prominent pial vessels. No enhancing mass or vascular malformation. There are multiple cortical/subcortical right parieto-occipital and posterior temporal microhemorrhages. There is hemosiderin staining in the right anterior frontal sulcus without signal abnormality on T2 FLAIR images, consistent with sequela of remote hemorrhage. Patchy T2 prolongation in the bilateral periventricular and subcortical supratentorial white matter, and within the mid irasema, consistent with moderate chronic microvascular changes. No restricted diffusion suggestive of acute ischemia. No midline shift, hydrocephalus or extra-axial collection. Cerebral aqueduct, foramen magnum and basilar cisterns are patent. Expected intracranial vascular flow voids are preserved. Orbits are normal. Paranasal sinuses and mastoid air cells are clear. Procedure Note Smiley Cordova MD - 05/07/2024 EXAMINATION: MRI BRAIN WWO CONTRAST (GENERIC) CLINICAL HISTORY: intraparenchymal hemorrhage of unknown cause TECHNIQUE: MRI of the brain was performed before and after the intravenousadministration of cc Dotarem. COMPARISON: CT head May 07, 2024 FINDINGS: A 4.2 x 2.0 cm right occipital hemorrhage with mild surrounding edemaand extension to the posterior right lateral ventricle and small volumehemorrhage layering in the occipital horns is not significantly changed since theprior CT, given technical differences. There is a new 1.6 x 1.0 cm right temporal occipital hemorrhage anterior inferior to this, with mild surroundingedema. There is effacement of the right parieto-occipital and posterior temporalsulci with enhancement of prominent pial vessels. No enhancing mass or vascular malformation. There are multiple cortical/subcortical right parieto-occipital andposterior temporal microhemorrhages. There is hemosiderin staining in the rightanterior frontal sulcus without signal abnormality on T2 FLAIR images, consistentwith sequela of remote hemorrhage. Patchy T2 prolongation in the bilateral periventricular and subcortical supratentorial white matter, and within the mid irasema, consistent withmoderate chronic microvascular changes. No restricted diffusion suggestive ofacute ischemia. No midline shift, hydrocephalus or extra-axial collection.Cerebral aqueduct, foramen magnum and basilar cisterns are patent. Expectedintracranial vascular flow voids are preserved. Orbits are normal. Paranasal sinusesand mastoid air cells are clear. IMPRESSION 1. New 1.6 cm hemorrhagic anterior to grossly stable 4.2cm rightoccipital hemorrhage with intraventricular extension with mild surrounding edemaand sulcal effacement. 2. Multiple right parieto-occipital and posterior temporalcortical/subcortical microhemorrhages and chronic right anterior frontal subcorticalhemosiderin staining. 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 3. No enhancing mass or vascular malformation. Thank you for letting us participate in the care of this patient. If youare a health care provider and have any questions regarding this report,please contact the number below. For patients who have questions please contactthe health health care liaison that requested your imaging first. Electronically signed by: Smiley Cordova MD, [facility]([phone]), at 05/07/2024 8:48 AM Teresa Riuz MD IMG MRI ORDERABLES * Phosphorus (05/07/2024 1:57 AM EDT) Phosphorus 2.8 2.5 - 4.5 mg/dL [facility] Blood 05/07/2024 1:57 AM EDT 05/07/2024 2:22 AM EDT Narrative Resulting Agency Comment Spec In Lab Teresa Ruiz MD CHEMISTRY ORDERABLE S Performing Organization Address City/[facility]/ZIP Co de Phone Number [facility] [place] [address] * Magnesium (05/07/2024 1:57 AM EDT) Magnesium 0.84 0.69 - 1.07 mmol/L [facility] Blood 05/07/2024 1:57 AM EDT 05/07/2024 2:22 AM EDT Narrative Resulting Agency Comment Spec In Lab Teresa Ruiz MD CHEMISTRY ORDERABLE S Performing Organization Address City/[facility]/ZIP Co de Phone Number [facility] [place] [address] * (ABNORMAL) Basic Metabolic Panel (non-fasting) (05/07/2024 1:57 AM EDT) Glucose 118 65 - 199 mg/dL [facility] Comment:Diabetes: >=200 mg/d L plus symptoms Blood Urea Nitrogen 14 8 - 18 mg/dL [facility] Creatinine 0.68(L) 0.70 - 1.20 mg/dL [facility] Sodium 139 135 - 145 mmol/L [facility] Potassium 4.2 3.5 - 5.0 mmol/L [facility] Comment: Please note: ??Patients with WBC >100,000 may have falsely elevated Potassium levels. ??For accurate Potassium quantification in these patients send serum separator tube (gold top) for subsequent determinations. ??Contact the Clinical Chemistry Laboratory if there are any questions. Chloride 105 98 - 107 mmol/L [facility] Carbon Dioxide 25 22 - 31 mmol/L [facility] Anion Gap 9 5 - 15 mmol/L [facility] Calcium 9.2 8.5 - 10.5 mg/dL [facility] Est Glomerular Filtration Rate 92 >=60 mL/min/1. 73 m?? [facility] Comment: This patient's estimated GFR [...] urine creatinine clearance. Assignment of CKD stage 1-5 for patients with an eGFR near the transition point between stages may be based on clinical assessment of muscle mass and symptoms in addition to eGFR. Blood 05/07/2024 1:57 AM EDT 05/07/2024 2:22 AM EDT Narrative Resulting Agency Comment Spec In Lab Teresa Ruiz MD CHEMISTRY ORDERABLE S [facility] [place] [address] * APTT (05/07/2024 1:57 AM EDT) Partial Thromboplastin Time 29 25 - 37 sec [facility] Comment: The PTT is NOT appropriate for heparin monitoring. Use the Anti-Xa level for heparin monitoring (HEP UFH) or LMWH monitoring (HEP LMW). A PTT less than 37 seconds generally indicates adequate hemostasis. Blood 05/07/2024 1:57 AM EDT 05/07/2024 2:22 AM EDT Narrative Resulting Agency Comment Spec In Lab Teresa Ruiz MD HEMATOLOGY ORDERABL ES Performing Organization Address [facility] de Phone Number [facility] [place] [place] [address] * Prothrombin Time (05/07/2024 1:57 AM EDT) Prothrombin Time 11.9 9.4 - 12.5 sec [facility] International Normalization Ratio 1.0 [facility] Comment: An INR <2.0 indicates adequate procoagulant activity for hemostasis in most patients without underlying bleeding disorders, though the INR may not adequately reflect hemostatic capacity in patients with liver disease and synthetic impairment. The recommended target INR range for therapeutic anticoagulation is 2.0 ? 3.0 for most applications, though lower and higher ranges may be appropriate depending on clinical circumstances. Blood 05/07/2024 1:57 AM EDT 05/07/2024 2:22 AM EDT Narrative Resulting Agency Comment Spec In Lab Teresa Ruiz MD HEMATOLOGY ORDERABL ES Performing Organization Address [facility] de Phone Number [facility] [place] [address] * (ABNORMAL) Hepatic Function Panel (05/07/2024 1:57 AM EDT) Protein, Total 6.0(L) 6.1 - 8.0 g/dL [facility] Albumin 3.5 3.2 - 5.2 g/dL [facility] Aspartate Aminotransferase 13 0 - 30 unit/L [facility] Alanine Aminotransferase 14 0 - 30 unit/L [facility] Alkaline Phosphatase 91 35 - 105 unit/L [facility] Bilirubin, Total 0.3 0.2 - 1.3 mg/dL [facility] Bilirubin, Direct <0.1 0.0 - 0.3 mg/dL [facility] Blood 05/07/2024 1:57 AM EDT 05/07/2024 2:22 AM EDT Narrative Resulting Agency Comment Spec In Lab Teresa Ruiz MD CHEMISTRY ORDERABLE S [facility] [place] [address] * (ABNORMAL) Differential, Automated (05/07/2024 1:55 AM EDT) Neutrophil % 72.1 % [facility] Neutrophil Absolute 9.60(H) 1.70 - 6.10 x10(3)/mc L [facility] Lymph % 19.6 % [facility] Lymphocytes Abs 2.6 0.9 - 3.2 x10(3)/mc L [facility] Monocyte % 6.3 % [facility] Monocyte Abs 0.8 0.3 - 0.9 x10(3)/mc L [facility] Eos % 1.3 % [facility] Eosinophils Abs 0.2 0.0 - 0.4 x10(3)/mc L [facility] Basophil % 0.3 % [facility] Baso Absolute 0.0 0.0 - 0.1 x10(3)/mc L [facility] Immature Gran % 0.40 % [facility] Comment: Immature granulocytes(IG's)percentage and absolute count will include metamyelocytes, myelocytes, and promyelocytes. Blood smears from CBCs yielding IG's will be scanned manually for concordance. If this scan disagrees with the automated IG or if promyelocytes are noted, a manual differential will be performed. Immature Gran Absolute 0.06(H) 0.00 - 0.04 x10(3)/mc L [facility] Blood 05/07/2024 1:55 AM EDT 05/07/2024 2:52 AM EDT Narrative Resulting Agency Comment Spec In Lab Umm Goodrich MD HEMATOLOGY ORDERABLE S [facility] [place] [address] * (ABNORMAL) Hemogram (05/07/2024 1:55 AM EDT) White Blood Cell 13.3(H) 4.0 - 9.5 x10(3)/mc L [facility] Red Blood Cell 4.56 4.00 - 5.21 x10(6)/mc L [facility] Hemoglobin 13.7 11.7 - 15.5 g/dL [facility] Hematocrit 40.3 35.7 - 45.8 % [facility] Mean Cell Volume 88.4 82.6 - 94.4 fL [facility] Mean Cell Hemoglobin 30.0 27.1 - 32.0 [facility] Mean Cell Hemoglobin Concentration 34.0 31.7 - 35.0 g/dL [facility] Platelet 257 145 - 357 x10(3)/mc L [facility] RDW Standard Deviation 42.3 37.0 - 46.0 [facility] RDW coefficient of variation 13.0 11.5 - 14.1 % [facility] Mean Platelet Volume 10.4 7.6 - 12.9 [facility] NRBC% auto 0.0 % [facility] NRBC Absolute 0.000 0.000 - 0.000 x10(3)/mc L [facility] Blood 05/07/2024 1:55 AM EDT 05/07/2024 2:52 AM EDT Narrative Resulting Agency Comment Spec In Lab Umm Goodrich MD HEMATOLOGY ORDERABLE S [facility] [place] [address] * CT Head wo Contrast (Generic) (05/07/2024 1:19 AM EDT) [employer] WORKSTATION ID [id number] RAD Anatomical Region Laterality Modality Head Computed Tomogra phy Impressions 05/07/2024 1:40 AM EDT Slightly decreased size of the evolving right occipital parenchymal hematoma with similar vasogenic edema and local mass-effect. Thank you for letting us participate in the care of this patient. ??If you are a health care provider and have any questions regarding this report, please contact the number below. ??For patients who have questions please contact the health health care liaison that requested your imaging first. ? Electronically signed by: Padmaja Acuna MD, [facility] ([phone]), at 05/07/2024 1:40 AM Narrative 05/07/2024 1:40 AM EDT EXAMINATION: CT HEAD WO CONTRAST (GENERIC) CLINICAL HISTORY: f/u R IPH stability, can cancel if MRI occurs before 1300 TECHNIQUE: CT head performed without intravenous contrast administration. COMPARISON: CT head without contrast 05/08/2024 0656 hours. FINDINGS: Evolving right occipital parenchymal hematoma measures 4.1 cm AP by 2.1 cm TR by 2.6 cm CC (remeasured 4.2 cm AP by 2.0 cm TR by 3.0 cm CC on comparison CT). Similar adjacent vasogenic edema and local mass-effect. No midline shift. Unchanged caliber of the ventricles. Patent basal cisterns. No territorial loss of deluca-white matter differentiation. Unchanged osseous structures. Well-aerated paranasal sinuses and mastoid air cells. Procedure Note Curt Acuna MD - 05/07/2024 EXAMINATION: CT HEAD WO CONTRAST (GENERIC) CLINICAL HISTORY: f/u R IPH stability, can cancel if MRI occurs [id number] TECHNIQUE: CT head performed without intravenous contrast administration. COMPARISON: CT head without contrast 05/08/2024 0656 hours. FINDINGS: Evolving right occipital parenchymal hematoma measures 4.1 cm AP by 2.1 cmTR by 2.6 cm CC (remeasured 4.2 cm AP by 2.0 cm TR by 3.0 cm CC on comparisonCT). Similar adjacent vasogenic edema and local mass-effect. No midlineshift. Unchanged caliber of the ventricles. Patent basal cisterns. No territorialloss of deluca-white matter differentiation. Unchanged osseous structures.Well-aerated paranasal sinuses and mastoid air cells. IMPRESSION Slightly decreased size of the evolving right occipital parenchymalhematoma with similar vasogenic edema and local mass-effect. Thank you for letting us participate in the care of this patient. If youare a health care provider and have any questions regarding this report,please contact the number below. For patients who have questions please contactthe health health care liaison that requested your imaging first. Electronically signed by: Padmaja Acuna MD, [facility]([phone]), at 05/07/2024 1:40 AM Gissell Velazco MD IM CT ORDERABLES * Rapid Drug Screen w/ Confirmation, Urine (05/06/2024 12:30 PM EDT) Barbiturates Screen, Urine None Detected None Detected [facility] Comment: The barbiturate screen detects barbiturates at concentrations >200 ng/mL. Note: Not all barbiturates cross-react equally with antibody used in this screen. A ? Presumptive Positive? result indicates that the screening result was positive but has not yet been confirmed by a highly-specific method. As with any screen, occasional false positive results from cross-reacting substances may occur. Not for Medico-Legal Purposes. Benzodiazepines Screen, Urine None Detected None Detected [facility] Comment: The benzodiazepines screen detects benzodiazepines at concentrations >100 ng/mL. Not all benzodiazepines cross-react equally with antibody used in this screen. Due to the low dosage of clonazepam, false negatives may be obtained due to low concentration of clonazepam metabolites. A ? Presumptive Positive? result indicates that the screening result was positive but has not yet been confirmed by a highly-specific method. As with any screen, occasional false positive results from cross-reacting substances may occur. Not for Medico-Legal Purposes. Cocaine Screen, Urine None Detected None Detected [facility] Comment: The cocaine metabolites screen detects benzoylecgonine (Cocaine Metabolite) at concentrations >150 ng/mL. A ? Presumptive Positive? result indicates that the screening result was positive but has not yet been confirmed by a highly-specific method. As with any screen, occasional false positive results from cross-reacting substances may occur. Not for Medico-Legal Purposes. Methadone Metabolites Screen, Urine None Detected None Detected [facility] Comment: The methadone metabolite screen detects EDDP (major methadone metabolite) at concentrations >100 ng/mL. A ? Presumptive Positive? result indicates that the screening result was positive but has not yet been confirmed by a highly-specific method. As with any screen, occasional false positive results from cross-reacting substances may occur. Not for Medico-Legal Purposes. Opiate Screen, Urine None Detected None Detected [facility] Comment: The opiates screen detects opiates at concentrations >300 ng/mL. Please note that oxycodone, oxymorphone, fentanyl, tramadol, and other synthetic opioids are not detected by the opiate screen. A ? Presumptive Positive? result indicates that the screening result was positive but has not yet been confirmed by a highly-specific method. As with any screen, occasional false positive results from cross-reacting substances may occur. Not for Medico-Legal Purposes. Cannabinoid Screen, Urine None Detected None Detected [facility] Comment: The marijuana metabolites screen detects the THC metabolite (51-qxf-9-carboxy-delta 9-THC) at concentrations >20 ng/mL. A ? Presumptive Positive? result indicates that the screening result was positive but has not yet been confirmed by a highly-specific method. As with any screen, occasional false positive results from cross-reacting substances may occur. Not for Medico-Legal Purposes. Oxycodone Screen, Urine None Detected None Detected [facility] Comment: The oxycodone screen detects oxycodone and oxymorphone at concentrations >100 ng/mL. A ? Presumptive Positive? result indicates that the screening result was positive but has not yet been confirmed by a highly-specific method. As with any screen, occasional false positive results from cross-reacting substances may occur. Not for Medico-Legal Purposes. Buprenorphine Screen, Urine None Detected None Detected [facility] Comment: The buprenorphine screen detects buprenorphine at concentrations >=5 ng/mL. A ? Presumptive Positive? result indicates that the screening result was positive but has not yet been confirmed by a highly-specific method. As with any screen, occasional false positive results from cross-reacting substances may occur. Not for Medico-Legal Purposes. This test has not been cleared by the [place] FDA. Performance characteristics of this test were determined by [facility] in accordance with CLIA requirements. This laboratory is qualified under CLIA to perform high-complexity testing. Fentanyl Screen, Urine None Detected None Detected [facility] Comment: The fentanyl screen detects fentanyl at concentrations >=2 ng/mL. A ? Presumptive Positive? result indicates that the screening result was positive but has not yet been confirmed by a highly-specific method. As with any screen, occasional false positive results from cross-reacting substances may occur. Not for Medico-Legal Purposes. This test has not been cleared by the [place] FDA. Performance characteristics of this test were determined by [facility] in accordance with CLIA requirements. This laboratory is qualified under CLIA to perform high-complexity testing. Tricyclics Screen, Urine None Detected None Detected [facility] Comment: The tricyclics screen detects tricyclic antidepressants at concentrations >=150 ng/mL. Not all tricyclics cross-react equally with the antibody used in this screen. A ? Presumptive Positive? result indicates that the screening result was positive but has not yet been confirmed by a highly-specific method. As with any screen, occasional false positive results from cross-reacting substances may occur. Not for Medico-Legal Purposes. This test has not been cleared by the [place] FDA. Performance characteristics of this test were determined by [facility] in accordance with CLIA requirements. This laboratory is qualified under CLIA to perform high-complexity testing. Ethanol Screen, Urine None Detected None Detected [facility] Comment:This urine ethanol a ssay detects ethanol at concentrations >/= 100 mg/L. Amphetamines Screen, Urine None Detected None Detected [facility] Comment: The amphetamine screen detects d-amphetamine and d-methamphetamine at concentrations >300 ng/mL. A ? Presumptive Positive? result indicates that the screening result was positive but has not yet been confirmed by a highly-specific method. As with any screen, occasional false positive results from cross-reacting substances may occur. Not for Medico-Legal Purposes. Creatinine Specimen Validity Test, Urine 71 >=20 mg/dL [facility] Chromate Specimen Validity Test, Urine <2.0 <=49.9 mg/L [facility] Nitrite Specimen Validity Test, Urine <50 <=499 mg/L [facility] Oxidant Specimen Validity Test, Urine 20 <=199 mg/L [facility] pH Specimen Validity Test, Urine 7.3 3.0 - 10.9 [facility] Adulterants Screen, Urine None Detected None Detected [facility] Comment:No adulteration of t his urine sample was detected. Urine 05/06/2024 12:3 0 PM EDT 05/06/2024 1:18 PM EDT Narrative Resulting Agency Comment Spec In Lab Galindo Nascimento DO CHEMISTRY ORDERABLES Performing Organization Address City/[facility]/ZIP Co de Phone Number [facility] [place] [address] * Rapid Drug Screen, Urine (SUKHI Request) (05/06/2024 12:30 PM EDT) SUKHI Conf Requested Yes [facility] SUKHI Requested See Comment [facility] Comment:Refer to Rapid Drug Screen w/ Confirmation, Urine for results. Urine 05/06/2024 12:3 0 PM EDT 05/06/2024 1:18 PM EDT Narrative Resulting Agency Comment Spec In Lab Teresa Ruiz MD URINE ORDERABLES [facility] [place] [address] * (ABNORMAL) Urinalysis with reflex Culture (05/06/2024 12:30 PM EDT) Glucose, Urine Dipstick Negative Negative mg/dL [facility] Protein, Urine Dipstick Negative Negative mg/dL [facility] Bilirubin, Urine Dipstick Negative Negative mg/dL [facility] Comment: Clinical correlation required for positive Urine Bilirubin results as false positive may occur with some drugs and drug related products. If a false positive is suspected a serum total bilirubin should be considered if clinically indicated. Urobilinogen, Urine Dipstick Normal Normal mg/dL [facility] pH, Urn (dipstick) 7.5 5.0 - 8.0 [facility] Blood, Urine Dipstick Negative Negative mg/dL [facility] Ketone, Urine Dipstick Negative Negative mg/dL [facility] Nitrite, Urine Dipstick Negative Negative [facility] Leukocytes, Urine Dipstick Negative Negative [facility] Appearance, Urine Dipstick Clear Clear [facility] Specific [place] Urine Automated >=1.030(A) 1.005 - 1.030 [facility] Color, Urine Dipstick Yellow Yellow [facility] Reflex to Culture No [facility] Clean Catch Urine 05/06/2024 12:30 PM EDT 05/06/2024 1:18 PM EDT Narrative Resulting Agency Comment Spec In Lab Teresa Ruiz MD URINE ORDERABLES [facility] [place] [address] * EKG 12 Lead (05/06/2024 11:17 AM EDT) Ventricular rate 83 BPM MUSE SYSTEM Atrial Rate 83 BPM MUSE SYSTEM P-R Interval 166 ms MUSE SYSTEM QRS Duration 64 ms MUSE SYSTEM Q-T Interval 340 ms MUSE SYSTEM QTC Calculated (Bezet) 399 ms MUSE SYSTEM Calculated P [place] 31 degrees MUSE SYSTEM Calculated R [place] -39 degrees MUSE SYSTEM Calculated T [place] 29 degrees MUSE SYSTEM INTERPRETATION Normal sinus rhythm Left axis deviation No previous ECGs available I personally reviewed the tracing and edited the fellows interpretation Confirmed by fellow Roney Ashby ([id number]) on 05/06/2024 3:42:55 PM Confirmed by MD RICHARDS SALVATORE ([id number]) on 05/06/2024 4:33:11 PM MUSE SYSTEM 05/06/2024 11:1 7 AM EDT 05/06/2024 4:33 PM EDT Gissell Velazco MD ECG ORDERABLES MUSE SYSTEM * ECHO COMPLETE W CONTRAST (05/06/2024 10:51 AM EDT) Anatomical Region Laterality Modality Cardiac Other 05/06/2024 9:19 AM EDT Narrative 05/06/2024 11:34 AM EDT 1 [place] [address] ? Echocardiogram Report Name: DAMION KATINA J ?Study Date: 05/06/2024 09:19 AM ? Patient Location: [id number] A : 1950 ? Height: 152 cm ? Account: [id number] Age: 74 yrs ? Weight: 85 kg Gender: Female ?BSA: 1.8 m2 Ordering Physician: TERESA RUIZ Referring Physician: JAI SOUSA Performed By: Mellisa Olmos RDCS Reason For Study: Intracranial hemorrhage Exam Location: [facility]. Interpretation Summary -Left ventricular systolic function is hyperdynamic. The left ventricular ejection fraction is 75% by Ruth's biplane. There are no segmental wall motion abnormalities. -The right ventricle is of normal size. Right ventricular systolic function is normal. -There is aortic valve sclerosis without stenosis. -See report for additional findings. No comparison study is available. Procedure Complete-[id number]. Image enhancement Optison was used for left ventricular opacification. Suboptimal quality. Left Ventricle Left ventricle is of normal size. There is a left ventiruclar outflow tract obstruction that is mild. There is a mid-cavity gradient that is mild. Left ventricular systolic function is hyperdynamic. The left ventricular ejection fraction is 75% by Ruth's biplane. There are no segmental wall motion abnormalities. Right Ventricle The right ventricle is of normal size. Right ventricular systolic function is normal. Left Atrium The left atrium is normal. No abnormality of the interatrial septum is identified. Right Atrium The right atrium is probably normal in size. Aortic Valve The aortic valve is structurally and functionally normal. The aortic valve is mildly calcified. There is aortic valve sclerosis without stenosis. The peak instantaneous gradient across the aortic valve is 17.9 mmHg. The mean gradient across the aortic valve is 10.6 mmHg. There is no aortic regurgitation. Mitral Valve The mitral valve is structurally and functionally normal. There is no mitral stenosis. There is trace mitral regurgitation. Tricuspid Valve The tricuspid valve is structurally and functionally normal. There is no tricuspid stenosis. There is trace tricuspid regurgitation. Pulmonic Valve The pulmonic valve is not well visualized. Great Arteries The aortic root is of normal size. No abnormalities are identified. Venous Inferior vena cava is normal in size. Inferior vena cava collapse greater than 50% with respiration. Pericardium/Pleural There is no pericardial effusion. Hemodynamics Left ventricular diastolic function is normal. ? 2D Measurements ? Volumes ?IVSd: 0.82 cm ?LAV(MOD-bp) Indexed: ?LVIDd: 4.3 cm ?LVIDs: 2.1 cm ?14.9 ml/m2 ?LVPWd: 0.95 cm ? SV(LVOT): 82.3 ml ? SI(LVOT): 45.4 ml/m2 ?RWT: 0.44 {ratio} ?LV mass(C)d: 121.7 grams ?LV mass(C)dI: 67.1 grams/m2 ?Ao root diam: 3.2 cm ?Ao root diam index: 1.8 ?LVOT diam: 2.0 cm ?TAPSE_phl: 1.7 cm Doppler LV V1 VTI: 27.0 cm Ao V2 VTI: 42.2 cm Ao Max: 211.7 cm/sec Ao valve max: 17.9 mmHg Ao valve mean: 10.6 mmHg MV E max ja: 57.0 cm/sec MV A max ja: 95.0 cm/sec MV E/A: 0.60 MV dec time: 0.43 sec Lat Peak E' Ja: 11.6 cm/sec E/e' (lat): 4.9 Med Peak E' Ja: 8.4 cm/sec E/e' (med): 6.8 E/e' Average: 5.9 SALO(I,D): 2.0 cm2 Dimensionless index Aov: 0.64 I ?WMSI = 1.00 ? % Normal = 100 ?Segments ??Size X - Cannot ?2 - ?4 - ?1-2 ? small Interpret ?1 - Normal ?? Hypokinetic 3 - Akinetic Dyskinetic ?? 3-5 ? moderate 5 - ? 6-14 ?large Aneurysmal ?15-16 ?? diffuse Procedure Note Tl Gamino MD - 05/06/2024 [address] [place] [id number] Echocardiogram Report Name: KATINA ARTHUR Study Date: 409:19 AM Patient Location: [id number] A : 1950 Height: 152 cm Account: [id number] Age: 74 yrs Weight: 85 kg Gender: Female BSA: 1.8 m2 Ordering Physician: TERESA RUIZ Referring Physician: JAI SOUSA Performed By: Mellisa Olmos RDCS Reason For Study: Intracranial hemorrhage Exam Location: [facility]. Interpretation Summary -Left ventricular systolic function is hyperdynamic. The left ventricularejection fraction is 75% by Ruth's biplane. There are no segmental wall motion abnormalities. -The right ventricle is of normal size. Right ventricular systolicfunction is normal. -There is aortic valve sclerosis without stenosis. -See report for additional findings. No comparison study is available. Procedure Complete-[id number]. Image enhancement Optison was used for left ventricular opacification. Suboptimal quality. Left Ventricle Left ventricle is of normal size. There is a left ventiruclar outflowtract obstruction that is mild. There is a mid-cavity gradient that is mild.Left ventricular systolic function is hyperdynamic. The left ventricularejection fraction is 75% by Ruth's biplane. There are no segmental wall motion abnormalities. Right Ventricle The right ventricle is of normal size. Right ventricular systolic functionis normal. Left Atrium The left atrium is normal. No abnormality of the interatrial septum isidentified. Right Atrium The right atrium is probably normal in size. Aortic Valve The aortic valve is structurally and functionally normal. The aortic valveis mildly calcified. There is aortic valve sclerosis without stenosis. Thepeak instantaneous gradient across the aortic valve is 17.9 mmHg. The meangradient across the aortic valve is 10.6 mmHg. There is no aortic regurgitation. Mitral Valve The mitral valve is structurally and functionally normal. There is nomitral stenosis. There is trace mitral regurgitation. Tricuspid Valve The tricuspid valve is structurally and functionally normal. There is notricuspid stenosis. There is trace tricuspid regurgitation. Pulmonic Valve The pulmonic valve is not well visualized. Great Arteries The aortic root is of normal size. No abnormalities are identified. Venous Inferior vena cava is normal in size. Inferior vena cava collapse greaterthan 50% with respiration. Pericardium/Pleural There is no pericardial effusion. Hemodynamics Left ventricular diastolic function is normal. 2D Measurements Volumes IVSd: 0.82 cm LAV(MOD-bp)Indexed: LVIDd: 4.3 cm LVIDs: 2.1 cm 14.9 ml/m2 LVPWd: 0.95 cm SV(LVOT): 82.3ml SI(LVOT): 45.4ml/m2 RWT: 0.44 {ratio} LV mass(C)d: 121.7 grams LV mass(C)dI: 67.1 grams/m2 Ao root diam: 3.2 cm Ao root diam index: 1.8 LVOT diam: 2.0 cm TAPSE_phl: 1.7 cm Doppler LV V1 VTI: 27.0 cm Ao V2 VTI: 42.2 cm Ao Max: 211.7 cm/sec Ao valve max: 17.9 mmHg Ao valve mean: 10.6 mmHg MV E max ja: 57.0 cm/sec MV A max ja: 95.0 cm/sec MV E/A: 0.60 MV dec time: 0.43 sec Lat Peak E' Ja: 11.6 cm/sec E/e' (lat): 4.9 Med Peak E' Ja: 8.4 cm/sec E/e' (med): 6.8 E/e' Average: 5.9 SALO(I,D): 2.0 cm2 Dimensionless index Aov: 0.64 I WMSI = 1.00 % Normal = 100 SegmentsSize X - Cannot 2 - 4 - 1-2small Interpret 1 - Normal Hypokinetic 3 - Akinetic Dyskinetic 3-5moderate 5 - 6-14large Aneurysmal 15-16diffuse Teresa Ruiz MD ECHO ORDERABLES * (ABNORMAL) Differential, Automated (05/06/2024 9:51 AM EDT) Neutrophil % 76.7 % [facility] Neutrophil Absolute 8.88(H) 1.70 - 6.10 x10(3)/mc L [facility] Lymph % 16.9 % [facility] Lymphocytes Abs 2.0 0.9 - 3.2 x10(3)/mc L [facility] Monocyte % 4.6 % [facility] Monocyte Abs 0.5 0.3 - 0.9 x10(3)/mc L [facility] Eos % 1.1 % [facility] Eosinophils Abs 0.1 0.0 - 0.4 x10(3)/mc L [facility] Basophil % 0.3 % [facility] Baso Absolute 0.0 0.0 - 0.1 x10(3)/mc L [facility] Immature Gran % 0.40 % [facility] Comment: Immature granulocytes(IG's)percentage and absolute count will include metamyelocytes, myelocytes, and promyelocytes. Blood smears from CBCs yielding IG's will be scanned manually for concordance. If this scan disagrees with the automated IG or if promyelocytes are noted, a manual differential will be performed. Immature Gran Absolute 0.05(H) 0.00 - 0.04 x10(3)/mc L [facility] Blood 05/06/2024 9:51 AM EDT 05/06/2024 9:52 AM EDT Narrative Resulting Agency Comment Spec In Lab Galindo Nascimento DO HEMATOLOGY ORDERABLE S [facility] [place] [address] * (ABNORMAL) Hemogram (05/06/2024 9:51 AM EDT) White Blood Cell 11.6(H) 4.0 - 9.5 x10(3)/ L [facility] Red Blood Cell 4.88 4.00 - 5.21 x10(6)/[facility] Hemoglobin 14.9 11.7 - 15.5 g/dL [facility] Hematocrit 44.3 35.7 - 45.8 % [facility] Mean Cell Volume 90.8 82.6 - 94.4 fL [facility] Mean Cell Hemoglobin 30.5 27.1 - 32.0 pg [facility] Mean Cell Hemoglobin Concentration 33.6 31.7 - 35.0 g/dL [facility] Platelet 261 145 - 357 x10(3)/ L [facility] RDW Standard Deviation 43.4 37.0 - 46.0 [facility] RDW coefficient of variation 13.0 11.5 - 14.1 % [facility] Mean Platelet Volume 10.3 7.6 - 12.9 fL [facility] NRBC% auto 0.0 % [facility] NRBC Absolute 0.000 0.000 - 0.000 x10(3)/ L [facility] Blood 05/06/2024 9:51 AM EDT 05/06/2024 9:52 AM EDT Narrative Resulting Agency Comment Spec In Lab Galindo Nascimento DO HEMATOLOGY ORDERABLE S Performing Organization Address [facility] Co de Phone Number [facility] [place] [place] [address] * Phosphorus (05/06/2024 9:51 AM EDT) Phosphorus 2.9 2.5 - 4.5 mg/dL [facility] Blood 05/06/2024 9:51 AM EDT 05/06/2024 9:52 AM EDT Narrative Resulting Agency Comment Spec In Lab Gissell Velazco MD CHEMISTRY ORDERABL ES Performing Organization Address [facility] Co de Phone Number [facility] [place] [address] * Magnesium (05/06/2024 9:51 AM EDT) Magnesium 0.78 0.69 - 1.07 mmol/L [facility] Blood 05/06/2024 9:51 AM EDT 05/06/2024 9:52 AM EDT Narrative Resulting Agency Comment Spec In Lab Gissell Velazco MD CHEMISTRY ORDERABL ES Performing Organization Address [facility] Co de Phone Number [facility] [place] [address] * APTT (05/06/2024 9:51 AM EDT) Partial Thromboplastin Time 31 25 - 37 sec [facility] Comment: The PTT is NOT appropriate for heparin monitoring. Use the Anti-Xa level for heparin monitoring (HEP UFH) or LMWH monitoring (HEP LMW). A PTT less than 37 seconds generally indicates adequate hemostasis. Blood 05/06/2024 9:51 AM EDT 05/06/2024 9:52 AM EDT Narrative Resulting Agency Comment Spec In Lab Gissell Velazco MD HEMATOLOGY ORDERAB LES Performing Organization Address [facility] de Phone Number [facility] [place] [address] * Prothrombin Time (05/06/2024 9:51 AM EDT) Pathologist [facility] Prothrombin Time 11.9 9.4 - 12.5 sec [facility] International Normalization Ratio 1.0 [facility] Comment: An INR <2.0 indicates adequate procoagulant activity for hemostasis in most patients without underlying bleeding disorders, though the INR may not adequately reflect hemostatic capacity in patients with liver disease and synthetic impairment. The recommended target INR range for therapeutic anticoagulation is 2.0 ? 3.0 for most applications, though lower and higher ranges may be appropriate depending on clinical circumstances. Blood 05/06/2024 9:51 AM EDT 05/06/2024 9:52 AM EDT Narrative Resulting Agency Comment Spec In Lab Gissell Velazco MD HEMATOLOGY ORDERAB LES Performing Organization Address [facility] Co de Phone Number [facility] [place] [address] * Comprehensive metabolic panel (non-fasting) (05/06/2024 9:51 AM EDT) Pathologist [facility] Glucose 176 65 - 199 mg/dL [facility] Comment:Diabetes: >=200 mg/d L plus symptoms Blood Urea Nitrogen 13 8 - 18 mg/dL [facility] Creatinine 0.80 0.70 - 1.20 mg/dL [facility] Sodium 139 135 - 145 mmol/L [facility] Potassium 4.3 3.5 - 5.0 mmol/L [facility] Comment: Please note: ??Patients with WBC >100,000 may have falsely elevated Potassium levels. ??For accurate Potassium quantification in these patients send serum separator tube (gold top) for subsequent determinations. ??Contact the Clinical Chemistry Laboratory if there are any questions. Chloride 102 98 - 107 mmol/L [facility] Carbon Dioxide 27 22 - 31 mmol/L [facility] Anion Gap 10 5 - 15 mmol/L [facility] Calcium 9.1 8.5 - 10.5 mg/dL [facility] Protein, Total 6.5 6.1 - 8.0 g/dL [facility] Albumin 3.8 3.2 - 5.2 g/dL [facility] Aspartate Aminotransferase 16 0 - 30 unit/L [facility] Alanine Aminotransferase 16 0 - 30 unit/L [facility] Alkaline Phosphatase 97 35 - 105 unit/L [facility] Bilirubin, Total 0.4 0.2 - 1.3 mg/dL [facility] Est Glomerular Filtration Rate 78 >=60 mL/min/1. 73 m?? [facility] Comment: This patient's estimated GFR [...] urine creatinine clearance. Assignment of CKD stage 1-5 for patients with an eGFR near the transition point between stages may be based on clinical assessment of muscle mass and symptoms in addition to eGFR. Blood 05/06/2024 9:51 AM EDT 05/06/2024 9:52 AM EDT Narrative Resulting Agency Comment Spec In Lab Gissell Velazco MD CHEMISTRY ORDERABL ES [facility] [place] [address] * CT Head wo Contrast (Generic) (05/06/2024 6:59 AM EDT) WORKSTATION ID [id number] [facility] Anatomical Region Laterality Modality Head Computed Tomogra phy Impressions 05/06/2024 9:05 AM EDT Mildly increased size of right occipital hematoma, without associated contrast extravasation, or associated abnormal vascularity noted. Mild luminal irregularity and ectasia of the distal cervical ICA on the right side without accompanying atherosclerotic plaque or dissection flap. Otherwise negative CTA of the head and neck. Thank you for letting us participate in the care of this patient. ??If you are a health care provider and have any questions regarding this report, please contact the number below. ??For patients who have questions please contact the health health care liaison that requested your imaging first. ? Electronically signed by: Elvin Bolden DO, [facility] ??([phone]), at 05/06/2024 9:05 AM Narrative 05/06/2024 9:05 AM EDT EXAMINATION: CT HEAD WO CONTRAST (GENERIC), CT ANGIOGRAM CAROTIDS AND [place] CLINICAL HISTORY: to evaluate for intraparenchymal bleed expansion TECHNIQUE: CT head performed without intravenous contrast administration. CTA of the head and neck following the intravenous administration of 65 cc of Omnipaque 350. 3-D MIP reconstructions were created. COMPARISON: Noncontrast head CT 05/05/2024 1528 hours FINDINGS: Noncontrast head CT: The right sided intraparenchymal occipital hematoma has increased in size slightly to approximately 4.4 cm in maximal dimension the axial plane, increased from 4.1. Oblique sagittal, coronal images are similarly increased. Surrounding edema is similar. There is no evidence of interval herniation. Regional sulcal effacement is similar. There are no new areas of hemorrhage. Ventricles are nondilated. There is no definitive intraventricular hemorrhage. Few scant foci of subarachnoid hemorrhage are questioned over the right cerebral hemisphere. There is no acute confluent ischemic infarct. No interval significant osseous or extracranial soft tissue findings noted. CTA head and neck: The brachiocephalic artery gives rise to the left common carotid. There is atherosclerotic calcification noted of the aortic arch, no branch vessel stenosis. There is mild carotid atherosclerosis without significant stenosis. There is mild luminal irregularity and ectasia of the distal right internal carotid artery in the neck. No additional definitive There is no vertebral artery stenosis, or arterial dissection or definitive pseudoaneurysm noted in the neck, without evidence of associated atherosclerotic disease. No additional definitive nonatheromatous vessel irregularity noted. Intracranially there is no contrast extravasation in or about the right occipital hematoma, or abnormal regional vascularity noted. There is no intracranial large vessel occlusion or stenosis identified. Dural venous sinuses are patent. Procedure Note Ricsashamalick Elvin Sissy, DO - 05/06/2024 EXAMINATION: CT HEAD WO CONTRAST (GENERIC), CT ANGIOGRAM CAROTIDS [place] CLINICAL HISTORY: to evaluate for intraparenchymal bleed expansion TECHNIQUE: CT head performed without intravenous contrast administration. CTA of the head and neck following the intravenous administration of 65 ccof Omnipaque 350. 3-D MIP reconstructions were created. COMPARISON: Noncontrast head CT 05/05/2024 1528 hours FINDINGS: Noncontrast head CT: The right sided intraparenchymal occipital hematoma has increased insize slightly to approximately 4.4 cm in maximal dimension the axial plane,increased from 4.1. Oblique sagittal, coronal images are similarly increased. Surrounding edema is similar. There is no evidence of intervalherniation. Regional sulcal effacement is similar. There are no new areas of hemorrhage. Ventricles are nondilated. There is no definitive intraventricularhemorrhage. Few scant foci of subarachnoid hemorrhage are questioned over the rightcerebral hemisphere. There is no acute confluent ischemic infarct. No interval significant osseous or extracranial soft tissue findingsnoted. CTA head and neck: The brachiocephalic artery gives rise to the left common carotid. Thereis atherosclerotic calcification noted of the aortic arch, no branch vessel stenosis. There is mild carotid atherosclerosis without significant stenosis. There is mild luminal irregularity and ectasia of the distal rightinternal carotid artery in the neck. No additional definitive There is no vertebral artery stenosis, or arterial dissection ordefinitive pseudoaneurysm noted in the neck, without evidence of associatedatherosclerotic disease. No additional definitive nonatheromatous vessel irregularitynoted. Intracranially there is no contrast extravasation in or about the right occipital hematoma, or abnormal regional vascularity noted. There is no intracranial large vessel occlusion or stenosis identified. Dural venous sinuses are patent. IMPRESSION Mildly increased size of right occipital hematoma, without associatedcontrast extravasation, or associated abnormal vascularity noted. Mild luminal irregularity and ectasia of the distal cervical ICA on theright side without accompanying atherosclerotic plaque or dissection flap.Otherwise negative CTA of the head and neck. Thank you for letting us participate in the care of this patient. If youare a health care provider and have any questions regarding this report,please contact the number below. For patients who have questions please contactthe health health care liaison that requested your imaging first. Electronically signed by: Elvin Bolden DO [facility]([phone]), at 05/06/2024 9:05 AM Teresa Ruiz MD IMG CT ORDERABLES * CT Angiogram Carotids & [place] (05/06/2024 6:59 AM EDT) [employer] WORKSTATION ID [id number] RAD Anatomical Region Laterality Modality Neck, Head Computed Tomogra phy Impressions 05/06/2024 9:05 AM EDT Mildly increased size of right occipital hematoma, without associated contrast extravasation, or associated abnormal vascularity noted. Mild luminal irregularity and ectasia of the distal cervical ICA on the right side without accompanying atherosclerotic plaque or dissection flap. Otherwise negative CTA of the head and neck. Thank you for letting us participate in the care of this patient. ??If you are a health care provider and have any questions regarding this report, please contact the number below. ??For patients who have questions please contact the health health care liaison that requested your imaging first. ? Electronically signed by: Elvin Bolden DO, [facility] ??([phone]), at 05/06/2024 9:05 AM Narrative 05/06/2024 9:05 AM EDT EXAMINATION: CT HEAD WO CONTRAST (GENERIC), CT ANGIOGRAM CAROTIDS AND [place] CLINICAL HISTORY: to evaluate for intraparenchymal bleed expansion TECHNIQUE: CT head performed without intravenous contrast administration. CTA of the head and neck following the intravenous administration of 65 cc of Omnipaque 350. 3-D MIP reconstructions were created. COMPARISON: Noncontrast head CT 05/05/2024 1528 hours FINDINGS: Noncontrast head CT: The right sided intraparenchymal occipital hematoma has increased in size slightly to approximately 4.4 cm in maximal dimension the axial plane, increased from 4.1. Oblique sagittal, coronal images are similarly increased. Surrounding edema is similar. There is no evidence of interval herniation. Regional sulcal effacement is similar. There are no new areas of hemorrhage. Ventricles are nondilated. There is no definitive intraventricular hemorrhage. Few scant foci of subarachnoid hemorrhage are questioned over the right cerebral hemisphere. There is no acute confluent ischemic infarct. No interval significant osseous or extracranial soft tissue findings noted. CTA head and neck: The brachiocephalic artery gives rise to the left common carotid. There is atherosclerotic calcification noted of the aortic arch, no branch vessel stenosis. There is mild carotid atherosclerosis without significant stenosis. There is mild luminal irregularity and ectasia of the distal right internal carotid artery in the neck. No additional definitive There is no vertebral artery stenosis, or arterial dissection or definitive pseudoaneurysm noted in the neck, without evidence of associated atherosclerotic disease. No additional definitive nonatheromatous vessel irregularity noted. Intracranially there is no contrast extravasation in or about the right occipital hematoma, or abnormal regional vascularity noted. There is no intracranial large vessel occlusion or stenosis identified. Dural venous sinuses are patent. Procedure Note Elvin Bolden DO - 05/06/2024 EXAMINATION: CT HEAD WO CONTRAST (GENERIC), CT ANGIOGRAM CAROTIDS [place] CLINICAL HISTORY: to evaluate for intraparenchymal bleed expansion TECHNIQUE: CT head performed without intravenous contrast administration. CTA of the head and neck following the intravenous administration of 65 ccof Omnipaque 350. 3-D MIP reconstructions were created. COMPARISON: Noncontrast head CT 05/05/2024 1528 hours FINDINGS: Noncontrast head CT: The right sided intraparenchymal occipital hematoma has increased insize slightly to approximately 4.4 cm in maximal dimension the axial plane,increased from 4.1. Oblique sagittal, coronal images are similarly increased. Surrounding edema is similar. There is no evidence of intervalherniation. Regional sulcal effacement is similar. There are no new areas of hemorrhage. Ventricles are nondilated. There is no definitive intraventricularhemorrhage. Few scant foci of subarachnoid hemorrhage are questioned over the rightcerebral hemisphere. There is no acute confluent ischemic infarct. No interval significant osseous or extracranial soft tissue findingsnoted. CTA head and neck: The brachiocephalic artery gives rise to the left common carotid. Thereis atherosclerotic calcification noted of the aortic arch, no branch vessel stenosis. There is mild carotid atherosclerosis without significant stenosis. There is mild luminal irregularity and ectasia of the distal rightinternal carotid artery in the neck. No additional definitive There is no vertebral artery stenosis, or arterial dissection ordefinitive pseudoaneurysm noted in the neck, without evidence of associatedatherosclerotic disease. No additional definitive nonatheromatous vessel irregularitynoted. Intracranially there is no contrast extravasation in or about the right occipital hematoma, or abnormal regional vascularity noted. There is no intracranial large vessel occlusion or stenosis identified. Dural venous sinuses are patent. IMPRESSION Mildly increased size of right occipital hematoma, without associatedcontrast extravasation, or associated abnormal vascularity noted. Mild luminal irregularity and ectasia of the distal cervical ICA on theright side without accompanying atherosclerotic plaque or dissection flap.Otherwise negative CTA of the head and neck. Thank you for letting us participate in the care of this patient. If youare a health care provider and have any questions regarding this report,please contact the number below. For patients who have questions please contactthe health health care liaison that requested your imaging first. Electronically signed by: Elvin Bolden DO, [facility]([phone]), at 05/06/2024 9:05 AM Teresa Ruiz MD IM CT ORDERABLES * Lipid Panel (Reflex Direct LDL) (05/06/2024 5:48 AM EDT) [facility] Signature Cholesterol, Total 135 mg/dL [facility] Comment: Desirable: ? <200 mg/dL Borderline High: 200-239 mg/dL Higher: ?>ev=552 mg/dL Triglyceride 101 mg/dL [facility] Comment: Normal: ?<150 mg/dL Borderline High: 150-199 mg/dL High: ?200-499 mg/dL Very High: ? >fy=522 mg/dL HDL Cholesterol 46 mg/dL [facility] Comment: Females: High Risk: <50 mg/dL Males: High Risk: <40 mg/dL LDL Cholesterol 69 mg/dL [facility] Comment: Desirable: ? <100 mg/dL Above Desirable: 100-129 mg/dL Borderline High: 130-159 mg/dL High: ?160-189 mg/dL Very High: ? >gk=332 mg/dL Lipid Interpretation See Note [facility] Comment: It is important to review the results of your lipid panel with your health care provider. You can compare your lipid results to the ranges below and whether they are in the desirable range. These ranges are only meant to be used for people without known cardiac disease, history of stroke, or peripheral vascular disease (blockages in the leg arteries or diabetes). If ??you have one of these conditions, your desirable LDL-C (bad cholesterol) will likely be even lower. ACC/AHA Guidelines (most recently Jackie et al. [facility] 08/27/22): For individuals with atherosclerotic cardiovascular disease (ASCVD)or LDL >so=989 mg/dL, use a high-intensity statin (40-80 mg atorvastatin or 20-40 mg rosuvastatin with goal >or=50% LDL reduction) For individuals with diabetes, age 40-75 without ASCVD, moderate-intensity statin (goal 30-49% LDL reduction); consider high intensity statin for those with increased risk. For adults without diabetes or ASCVD, aged 40-75 with LDL 70-189 mg/dL, estimate 10 year ASCVD risk with smartphrase .ASCVDRISK or Dynamed Decisions. If 10 year risk is 7.5%-19.9% (intermediate risk), consider moderate intensity statin based on risk enhancers and patient preference. Consider coronary artery calcium test (CT) if there is concern regarding the benefit of a statin. If ten year risk is >or=20%, initiate high-intensity statin. Evaluate for secondary causes of triglycerides >500 mg/dL or LDL >190 mg/dL. Lifestyle modification is a critical component of ASCVD risk reduction. If not reaching LDL goals on maximally tolerated statin, consider ezetimibe and/or a PCSK9 inhibitor: Target for primary prevention: LDL<100 Target for those with ASCVD or diabetes and 10-year risk >or=20%: LDL<70 Target for those with very high risk ASCVD: LDL<55 (Very high risk being the presence of 2 or more of: recent acute coronary syndrome, past myocardial infarction, ischemic stroke, symptomatic peripheral artery disease) Blood 05/06/2024 5:48 AM EDT 05/06/2024 6:30 AM EDT Narrative Resulting Agency Comment Spec In Lab Teresa Ruiz MD CHEMISTRY ORDERABLE S Performing Organization Address City/[facility]/ZIP Co de Phone Number [facility] [place] [address] * TSH [place] (05/06/2024 5:48 AM EDT) Thyroid Stimulating Hormone 0.99 0.27 - 4.20 mcIU/mL [facility] Comment: Reference Interval (mcIU/mL): Females: ??First Trimester: 0.23-3.88 ??Second Trimester: 0.22-3.90 ??Third Trimester: 0.44-4.66 Blood 05/06/2024 5:48 AM EDT 05/06/2024 6:30 AM EDT Narrative Resulting Agency Comment Spec In Lab Teresa Ruiz MD CHEMISTRY ORDERABLE S Performing Organization Address City/[facility]/ZIP Co de Phone Number [facility] [place] [address] * (ABNORMAL) Hemoglobin A1c (05/06/2024 5:48 AM EDT) Pathologist [facility] Hemoglobin A1c 6.0(H) 4.3 - 5.6 % [facility] Comment: Reference Range: 4.3 - 5.6% 5.7 - 6.4% - Increased Risk of Developing Diabetes Mellitus >= 6.5% - Consistent with diagnosis of Diabetes Mellitus In the absence of hyperglycemia (i.e. plasma glucose > 200 mg/dL) or classic symptoms of hyperglycemia a repeat measurement of HbA1c should be performed on a separate sample to confirm the diagnosis. Diagnosis and Classification of Diabetes Mellitus, Diabetes Care 2013; 36: Suppl. 1, S67-74 Estimated Average Glucose See note mg/dL [facility] Comment: Estimated Average Glucose not appropriate for patients over 70 years of age. Blood 05/06/2024 5:48 AM EDT 05/06/2024 6:30 AM EDT Narrative Resulting Agency Comment Spec In Lab Teresa Ruiz MD CHEMISTRY ORDERABLE S [facility] [place] [address] * POCT Glucose (05/06/2024 1:48 AM EDT) Pathologist [facility] Glucose, POC 110 65 - 199 mg/dL [facility] Comment: Supplemental ranges: <140 mg/dL before meals <180 mg/dL all other times of the day Blood 05/06/2024 1:48 AM EDT 05/06/2024 1:48 AM EDT Teresa Ruiz MD POINT OF CARE TEST ORDERABLES [facility] [place] [address] documented in this encounter Visit Diagnoses Diagnosis Right occipital hemorrhage, anticoagulation associated, 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- Primary Unspecified intracranial hemorrhage Right occipital hemorrhage, anticoagulation associated, 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 Unspecified intracranial hemorrhage Chest pain, unspecified type PAF (paroxysmal atrial fibrillation) Atrial fibrillation documented in this encounter Admitting Diagnoses Diagnosis Intracranial hemorrhage Unspecified intracranial hemorrhage documented in this encounter Administered Medications Inactive Administered Medications - up to 3 most recent administrations Medication Order MAR Action Action Date Dose Rate Site acetaminophen (Tylenol) (32.02 mg/mL) oral liquid 975 mg 975 mg, Per G Tube, EVERY 6 HOURS PRN, Starting on Ashley 05/06/24 at 0211, Until 05/08/24 at 1800, Pain, Fever, pain or oral temperature greater than 100 degrees F (measured by mouth), Maximum dose of acetaminophen is 4,000 mg from all sources in 24 hours. When ordered for pain, acetaminophen should be given even when other ordered pain medications are indicated., Routine acetaminophen (Tylenol) suppository 650 mg 650 mg, Rectal, EVERY 6 HOURS PRN, Starting on Ashley 05/06/24 at 0211, Until 05/08/24 at 1800, Pain, Fever, pain or oral temperature greater than 100 degrees F (measured by mouth), Maximum dose of acetaminophen is 4,000 mg from all sources in 24 hours. When ordered for pain, acetaminophen should be given even when other ordered pain medications are indicated., Routine acetaminophen (Tylenol) tablet 975 mg 975 mg, Oral, EVERY 6 HOURS PRN, Starting on Ashley 05/06/24 at 0211, Until 05/08/24 at 1800, Pain, Fever, pain or oral temperature greater than 100 degrees F (measured by mouth), Maximum dose of acetaminophen is 4,000 mg from all sources in 24 hours. When ordered for pain, acetaminophen should be given even when other ordered pain medications are indicated., Routine Given 05/08/2024 12:37 PM EDT 975 mg Given 05/08/2024 4:09 AM EDT 975 mg Given 05/07/2024 8:58 PM EDT 975 mg calcium carbonate (TUMS) chewable tablet 1,000 mg 1,000 mg, Oral, DAILY, First dose on Ashley 05/06/24 at 0930, Until Discontinued, Routine Given 05/07/2024 8:34 AM EDT 1,000 mg Given 05/06/2024 10:58 PM EDT 1,000 mg calcium carbonate (TUMS) chewable tablet 1,000 mg 1,000 mg, Oral, 2 TIMES DAILY, First dose (after last modification) on 05/08/24 at 0900, Until Discontinued, Routine Given 05/08/2024 8:05 AM EDT 1,000 mg cholecalciferoL (Vitamin D3) tablet 1,000 Units 1,000 Units, Oral, DAILY, First dose on Fri05/06/24 at 0900, Until Discontinued, 40 units is equivalent to 1 mcg of cholecalciferol., Routine Given 05/08/2024 8:05 AM EDT 1,000 Units Given 05/07/2024 8:34 AM EDT 1,000 Units Given 05/06/2024 8:47 AM EDT 1,000 Units dilTIAZem CD (Cardizem CD) capsule 300 mg 300 mg, Oral, DAILY, First dose on Fri05/06/24 at 0900, Until Discontinued, DO NOT CRUSH OR OPEN, Routine Given 05/08/2024 8:05 AM EDT 300 mg Given 05/07/2024 8:34 AM EDT 300 mg Given 05/06/2024 8:48 AM EDT 300 mg gadoterate meglumine (Dotarem) (0.5 mMol/mL) injection solution 0-100 mL 0-100 mL, Intravenous, ONCE PRN, 1 dose, Starting on Fri05/07/24 at 0637, Until Fri05/07/24 at 0637, Per Protocol, Radiology Contrast, Routine Given 05/07/2024 6:37 AM EDT 17 mLs iohexoL (Omnipaque) (350 mg/mL) solution 0-200 mL 0-200 mL, Intravenous, ONCE PRN, 1 dose, Starting on Fri05/06/24 at 0658, Until Fri05/06/24 at 0659, Per Protocol, Warning Vesicant/Irritant Medication , Radiology Contrast, Routine Given 05/06/2024 6:59 AM EDT 65 mLs ipratropium-albuteroL (Duoneb) 0.5 mg-3 mg(2.5 mg base)/3 mL nebulizer solution 3 mL 3 mL, Nebulization, EVERY 4 HOURS PRN, Starting on Fri05/06/24 at 0835, Until Fri05/08/24 at 1800, Wheezing, Routine ondansetron (Zofran) tablet 4 mg 4 mg, Oral, EVERY 8 HOURS PRN, Starting on Fri05/07/24 at 0723, Until 05/08/24 at 1800, Nausea, Routine pantoprazole EC (Protonix) tablet 40 mg 40 mg, Oral, DAILY PRN, Starting on Fri05/07/24 at 2129, Until Fri05/08/24 at 1800, heartburn, DO NOT CRUSH OR OPEN, Routine Given 05/08/2024 4:09 AM EDT 40 mg perflutren protein-A microsphers (Optison) (0.22 mg/mL) injection 0.5 mL 0.5 mL, Intravenous, ONCE PRN, 1 dose, Starting on Fri05/06/24 at 1051, Until Fri05/06/24 at 1051, for enhancement of sub-optimal echo images, Echo Lab (Intra-Procedure), Routine Given 05/06/2024 10:51 AM EDT 0.5 mLs polyethylene glycoL (Miralax) packet 17 g 17 g, Oral, DAILY, First dose on Fri05/06/24 at 0900, Until Discontinued, Routine Given 05/06/2024 8:47 AM EDT 17 g senna-docusate (Pericolace) 8.6-50 mg per tablet 2 tablet 2 tablet, Oral, 2 TIMES DAILY, First dose on Fri05/06/24 at 0900, Until Discontinued, Administer to achieve 1 soft bowel movement daily without straining , Routine Given 05/08/2024 8:05 AM EDT 2 tablets Given 05/07/2024 8:58 PM EDT 2 tablets Given 05/06/2024 8:47 AM EDT 2 tablets sodium chloride 0.9 % (flush) (BD PosiFlush Normal Saline 0.9) flush 5 mL 5 mL, Intravenous, 2 TIMES DAILY, First dose on Fri05/06/24 at 0900, Until Discontinued, Routine Given 05/08/2024 8:07 AM EDT 5 mLs Given 05/07/2024 8:58 PM EDT 5 mLs Given 05/07/2024 8:35 AM EDT 5 mLs traMADoL (Ultram) tablet 50 mg 50 mg, Oral, 2 TIMES DAILY PRN, Starting on Fri05/06/24 at 1122, Until Fri05/08/24 at 1800, Pain, Routine Given 05/06/2024 1:04 PM EDT 50 mg documented in this encounter Active and Recently Administered Medications Times are shown in EDT. Scheduled Medication Order 05/06/2024 05/07/2024 05/08/2024 calcium carbonate (TUMS) chewable tablet 1,000 mg (CANCELED) 1,000 mg, Oral, DAILY, First dose on Ashley 05/06/24 at 0930, Until Discontinued, Routine 0930 (Not Given - Provider: Luz Bhat RN - Reason: Patient/family refused)2258 (Given - Provider: Corinna Rutledge RN - Comment: not given earlier today pt requesting) 0834 (Given - Provider: Odalys Crane RN) calcium carbonate (TUMS) chewable tablet 1,000 mg 1,000 mg, Oral, 2 TIMES DAILY, First dose (after last modification) on [facility] 05/08/24 at 0900, Until Discontinued, Routine 0805 (Given - Provider: Lisa Crane RN) cholecalciferoL (Vitamin D3) tablet 1,000 Units 1,000 Units, Oral, DAILY, First dose on Ashley 05/06/24 at 0900, Until Discontinued, 40 units is equivalent to 1 mcg of cholecalciferol., Routine 0847 (Given - Provider: Luz Bhat RN) 0834 (Given - Provider: Odalys Crane RN) 0805 (Given - Provider: Lisa Crane RN) dilTIAZem CD (Cardizem CD) capsule 300 mg 300 mg, Oral, DAILY, First dose on Ashley 05/06/24 at 0900, Until Discontinued, DO NOT CRUSH OR OPEN, Routine 0848 (Given - Provider: Luz Bhat RN) 0834 (Given - Provider: Odalys Crane RN) 0805 (Given - Provider: Lisa Crane RN) polyethylene glycoL (Miralax) packet 17 g 17 g, Oral, DAILY, First dose on Ashley 05/06/24 at 0900, Until Discontinued, Routine 0847 (Given - Provider: Luz Bhat RN) 0900 (Not Given - Provider: Odalys Crane RN - Reason: Patient/family refused) 0900 (Not Given - Provider: Lisa Crane RN - Reason: Contraindicated) senna-docusate (Pericolace) 8.6-50 mg per tablet 2 tablet 2 tablet, Oral, 2 TIMES DAILY, First dose on Ashley 05/06/24 at 0900, Until Discontinued, Administer to achieve 1 soft bowel movement daily without straining , Routine 0847 (Given - Provider: Luz Bhat RN)2247 (Not Given - Provider: Corinna Rutledge RN - Reason: Patient/family refused)2250 (Not Given - Provider: Corinna Rutledge RN - Reason: Patient/family refused) 0900 (Not Given - Provider: Odalys Crane RN - Reason: Patient/family refused)2057 (Given - Provider: Virgen Olmos RN) 0805 (Given - Provider: Lisa Crane RN) sodium chloride 0.9 % (flush) (BD PosiFlush Normal Saline 0.9) flush 5 mL 5 mL, Intravenous, 2 TIMES DAILY, First dose on Ashley 05/06/24 at 0900, Until Discontinued, Routine 0849 (Given - Provider: Luz Bhat RN)2100 (Given - Provider: Corinna Rutledge RN) 0835 (Given - Provider: Odalys Crane RN)2057 (Given - Provider: Virgen Olmos RN) 0807 (Given - Provider: Lisa Carne RN) Continuous Medication Order 05/06/2024 05/07/2024 05/08/2024 niCARdipine (Cardene) (0.2 mg/mL) in sodium chloride 200 mL infusion 0-15 mg/hr (0-75 mL/hr), Intravenous, CONTINUOUS, Starting on Ashley 05/06/24 at 0300, Until 05/08/24 at 1800, Call Flavorer to discontinue labetaloL if blood pressure is not controlled. Call Flavorer if SBP is less than 110 mmHg. Administer if inadequate blood pressure control in 30 minutes despite labetaloL or if labetaloL not ordered. Titrate to a systolic blood pressure (SBP) greater than 130 mmHg and less than 150 mmHg. Start at 5 mg/hr. Increase/decrease by 2.5 mg/hr every 5 minutes until goal reached. Do not exceed 15 mg/hr. Rotate IV site every 12 hours., Routine 0300 (Due) PRN Medication Order 05/06/2024 05/07/2024 05/08/2024 acetaminophen (Tylenol) (32.02 mg/mL) oral liquid 975 mg(Linked Group 1) 975 mg, Per G Tube, EVERY 6 HOURS PRN, Starting on Ashley 05/06/24 at 0211, Until 05/08/24 at 1800, Pain, Fever, pain or oral temperature greater than 100 degrees F (measured by mouth), Maximum dose of acetaminophen is 4,000 mg from all sources in 24 hours. When ordered for pain, acetaminophen should be given even when other ordered pain medications are indicated., Routine 0243 (See Alternative - Provider: Rae Barney RN)171 (See Alternative - Provider: Luz Bhat RN)2246 (See Alternative - Provider: Corinna Rutledge RN) 125 (See Alternative - Provider: Odalys Crane RN)2057 (See Alternative - Provider: Virgen Olmos RN) 040 (See Alternative - Provider: Virgen Olmos RN)1237 (See Alternative - Provider: Luz Bhat RN) acetaminophen (Tylenol) suppository 650 mg(Linked Group 1) 650 mg, Rectal, EVERY 6 HOURS PRN, Starting on Ashley 05/06/24 at 0211, Until 05/08/24 at 1800, Pain, Fever, pain or oral temperature greater than 100 degrees F (measured by mouth), Maximum dose of acetaminophen is 4,000 mg from all sources in 24 hours. When ordered for pain, acetaminophen should be given even when other ordered pain medications are indicated., Routine 0243 (See Alternative - Provider: Rae Barney RN)171 (See Alternative - Provider: Luz Bhat RN)224 (See Alternative - Provider: Corinna Rutledge RN) 125 (See Alternative - Provider: Odalys Crane RN)2057 (See Alternative - Provider: Virgen Olmos RN) 040 (See Alternative - Provider: Virgen Olmos RN)1237 (See Alternative - Provider: Luz Bhat RN) acetaminophen (Tylenol) tablet 975 mg(Linked Group 1) 975 mg, Oral, EVERY 6 HOURS PRN, Starting on Ashley 05/06/24 at 0211, Until 05/08/24 at 1800, Pain, Fever, pain or oral temperature greater than 100 degrees F (measured by mouth), Maximum dose of acetaminophen is 4,000 mg from all sources in 24 hours. When ordered for pain, acetaminophen should be given even when other ordered pain medications are indicated., Routine 0243 (Given - Provider: Rae Barney RN - Comment: Pt only takes 1)1711 (Given - Provider: Luz Bhat RN)2247 (Given - Provider: Corinna Rutledge, TRACY) 1255 (Given - Provider: Odalys Crane RN)2058 (Given - Provider: Virgen Olmos RN) 0409 (Given - Provider: Virgen Olmos RN)1237 (Given - Provider: Luz Bhat RN) bisacodyL (Dulcolax) suppository 10 mg 10 mg, Rectal, DAILY PRN, Starting on Ashley 05/06/24 at 0211, Until 05/08/24 at 1800, Constipation, Administer if needed per patient's routine or if no bowel movement within 48 hours to achieve: (1) One bowel movement at least every 48 hours, AND (2) Without straining. If multiple PRN bowel medications ordered, start with magnesium hydroxide, then bisacodyL. Multiple medications may be given concomitantly for constipation. , Routine enalaprilat (Vasotec) (1.25 mg/mL) injection 1.25 mg 1.25 mg, Intravenous, Administer over 5 Minutes, EVERY 6 HOURS PRN, Starting on Ashley 05/06/24 at 0211, Until 05/08/24 at 1800, Hypertension, - Administer if inadequate blood pressure control in 30 minutes despite labetaloL. enalaprilat can be given with labetaloL or niCARdipine. - Give when SBP is greater than 150 mmHg., Routine gadoterate meglumine (Dotarem) (0.5 mMol/mL) injection solution 0-100 mL (COMPLETED) 0-100 mL, Intravenous, ONCE PRN, 1 dose, Starting on Fri05/07/24 at 0637, Until Fri05/07/24 at 0637, Per Protocol, Radiology Contrast, Routine 06 (Given - Provider: Carlitos Vasquez) iohexoL (Omnipaque) (350 mg/mL) solution 0-200 mL (COMPLETED) 0-200 mL, Intravenous, ONCE PRN, 1 dose, Starting on Ashley 05/06/24 at 0658, Until Ashley 05/06/24 at 0659, Per Protocol, Warning Vesicant/Irritant Medication , Radiology Contrast, Routine 658 (Given - Provider: Maria Esther Ro) ipratropium-albuteroL (Duoneb) 0.5 mg-3 mg(2.5 mg base)/3 mL nebulizer solution 3 mL 3 mL, Nebulization, EVERY 4 HOURS PRN, Starting on Fri05/06/24 at 0835, Until 05/08/24 at 1800, Wheezing, Routine labetaloL (Normodyne) (5 mg/mL) injection solution 10-20 mg 10-20 mg, Intravenous, Administer over 2 Minutes, EVERY 15 MIN PRN, Starting on Fri05/06/24 at 0211, Until 05/08/24 at 1800, High Blood Pressure, - Administer for systolic blood pressure (SBP) greater than 150 mmHg. - Administer 10 mg over 2 [...] 30 minutes, consider enalaprilat or niCARdipine., Routine lidocaine (Xylocaine) 1% (10 mg/mL) injection 3 mg 3 mg (0.3 mL), Subcutaneous, ONCE PRN, 1 dose, Starting on Fri05/06/24 at 0211, Until 05/08/24 at 1800, for discomfort with PIV insertion, Routine magnesium hydroxide (Milk of Magnesia) (80mg/mL) oral liquid 2,400 mg 2,400 mg (30 mL), Oral, DAILY PRN, Starting on Fri05/06/24 at 0211, Until 05/08/24 at 1800, Constipation, 30 mL regular (400 mg/5 mL) = 10 mL concentrate (2400 mg/10 mL), Routine ondansetron (Zofran) tablet 4 mg 4 mg, Oral, EVERY 8 HOURS PRN, Starting on Fri05/07/24 at 0723, Until 05/08/24 at 1800, Nausea, Routine pantoprazole EC (Protonix) tablet 40 mg 40 mg, Oral, DAILY PRN, Starting on Fri05/07/24 at 2129, Until 05/08/24 at 1800, heartburn, DO NOT CRUSH OR OPEN, Routine 0409 (Given - Provider: Virgen Olmos, TRACY) perflutren protein-A microsphers (Optison) (0.22 mg/mL) injection 0.5 mL (COMPLETED) 0.5 mL, Intravenous, ONCE PRN, 1 dose, Starting on Ashley 05/06/24 at 1051, Until Ashley 05/06/24 at 1051, for enhancement of sub-optimal echo images, Echo Lab (Intra-Procedure), Routine 1051 (Given - Provider: Mellisa Olmos) sodium chloride 0.9 % (flush) (BD PosiFlush Normal Saline 0.9) flush 5-20 mL 5-20 mL, Intravenous, EVERY 1 MIN PRN, Starting on Fri05/06/24 at 0211, Until 05/08/24 at 1800, flush, Flush pertains to all indwelling lines. Flush per protocol found in the job aid using the link provided on this medication record., Routine traMADoL (Ultram) tablet 50 mg 50 mg, Oral, 2 TIMES DAILY PRN, Starting on Fri05/06/24 at 1122, Until 05/08/24 at 1800, Pain, Routine 1304 (Given - Provider: Luz Bhat RN) Linked Groups Order Group 1: acetaminophen (Tylenol) tablet 975 mgJump to med 975 mg, Oral, EVERY 6 HOURS PRN, Starting on Ashley 05/06/24 at 0211, Until 05/08/24 at 1800, Pain, Fever, pain or oral temperature greater than 100 degrees F (measured by mouth), Maximum dose of acetaminophen is 4,000 mg from all sources in 24 hours. When ordered for pain, acetaminophen should be given even when other ordered pain medications are indicated., Routine Or acetaminophen (Tylenol) (32.02 mg/mL) oral liquid 975 mgJump to med 975 mg, Per G Tube, EVERY 6 HOURS PRN, Starting on Ashley 05/06/24 at 0211, Until 05/08/24 at 1800, Pain, Fever, pain or oral temperature greater than 100 degrees F (measured by mouth), Maximum dose of acetaminophen is 4,000 mg from all sources in 24 hours. When ordered for pain, acetaminophen should be given even when other ordered pain medications are indicated., Routine Or acetaminophen (Tylenol) suppository 650 mgJump to med 650 mg, Rectal, EVERY 6 HOURS PRN, Starting on Ashley 05/06/24 at 0211, Until 05/08/24 at 1800, Pain, Fever, pain or oral temperature greater than 100 degrees F (measured by mouth), Maximum dose of acetaminophen is 4,000 mg from all sources in 24 hours. 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
--- OUTSIDE RECORDS SUMMARY | 2024-10-20 17:31 | XMS_ITS | Encounter Summary ---
Author Organization [facility] Address [facility] [place] [address] Care Team Providers Care Waterproofer Helper Name Role Phone Dorita Zimmerman RICHARD Primary Care Provider [phone] Encounter Details Date Type Department Care Team (Late st Contact Info) Description 04/23/2024 8:30 AM EDT - 04/23/2024 11:28 AM EDT [place] [phone] Aleah Burkett MD [facility] [place] [address] LAPAROSCOPY, TOTAL HYST, UTERUS<250GMS, REM TUBE &/OR OVARY (WRVU 15) Social History Tobacco Use Types Packs/Day Years Used Date Smoking Tobacco: Former Cigarettes 2 30 973 - 2002 Smokeless Tobacco: Never Alcohol Use Standard Drinks/Week Comments Never 0 (1 standard drink = 0.6 oz pur e alcohol) [facility] Utilities Answer Date Recorded In the past 12 months has [email or web address], gas, oil, or water [employer] threatened to shut off services in your home? No 03/03/2024 Overall Financial Resource Strain (CARDIA) Answe r Date Recorded How hard is it for you to pa y for the very basics like food, housing, medical care, and heating? Somewhat hard 03/03/2024 Hunger Vital Sign Answer Date Recorded Within the past 12 months, y ou worried that your food would run out before you got the money to buy more. Often true Within the past 12 months, t he food you bought just didn't last and you didn't have money to get more. Sometimes true 08/2024 PRAPARE - Transportation Answer Date Re corded In the past 12 months, has l ack of transportation kept you from medical appointments or from getting medications? No 02/22 In the past 12 months, has l ack of transportation kept you from meetings, work, or from getting things needed for daily living? No 03/03/2024 Housing Stability Vital Sign Answer [...] in a mcc (including now)? No 03/03/2024 DH IPV Inpatient Questions Answer Date Recorded Does Anyone Try to Keep You From Having Contact with Others or Doing Things Outside Your Home? no 04/23/2024 Feels Threatened by Someone no 03/26 Feels Unsafe at Home or Work/School no 04/23/2024 Physical Signs of Abuse Present no 04/23/2024 Sex and Gender Information Value Date Recorded Sex Assigned at Not on file Gender Identity Not on file Sexual Orientation Not on file documented as of this encounter Last Filed Vital Signs Vital Sign Reading Time Taken Comments Blood Pressure 138/64 04/23/2024 11:15 AM EDT Pulse 66 04/23/2024 7:39 AM EDT Temperature 36.8 ??C (98.2 ??F) 04/23/2024 11:15 AM E DT Respiratory Rate 16 04/23/2024 11:15 AM EDT Oxygen Saturation 99% 04/23/2024 11:15 AM EDT Inhaled Oxygen Concentration - - Weight 83.9 kg (185 lb) 04/23/2024 7:39 AM EDT Height 152.4 cm (5') 04/23/2024 7:39 AM EDT Body Mass Index 36.13 04/23/2024 7:39 AM EDT documented in this encounter Discharge Instructions * Patient Instructions* Rock Wilkerson MD - 04/23/2024 7:16 AM EDT PATIENT DISCHARGE INSTRUCTIONS Gynecologic Oncology phone number: [phone] (Nurse ext [phone] then 4; appointment ext [phone] then 4). After hours and on weekends please call hospital spinning operator at [phone] and ask for Gynecologic Oncologist operational test mechanic. Call your doctor if you develop: --A fever over 101 degrees --Severe pain --Increasing pain, redness, or discharge at any of your incisions --Heavy vaginal bleeding-soaking through a pad an hour --It is normal to have continuous or intermittent light spotting from the vagina for up to 6 weeks following hysterectomy Future Appointments Date Time Provider Department Center 05/24/2024 10:00 AM Aleah Burkett MD [facility] CLUSTER BORE OPERATOR [address] [facility] -- Please restart apixaban on tomorrow night, on 04/24/2024 PM Activity level: Walking is encouraged and stairs are allowed. No swimming for 8 weeks. Let your body guide you- try to avoid grunting/groaning/straining for about 2 weeks. If you feel you did too much please listen to your body and back off. There are no lifting restrictions but some activities maybe uncomfortable. Listen to your body and avoid uncomfortable levels of activity for six weeks. No sexual intercourse, no tampons, nothing in the vagina for 8 weeks. Diet: You may resume your regular diet. Be sure you drink plenty of fluids. Bowel Regimen: Please use manasa-colace (senna-S or docusate-senna) 1-2 tablets twice daily for the entire time that you are taking narcotic pain medication to keep your bowel movements soft and regular. You may consider using this post- operatively even if you are not using narcotic pain medication. You can increase this to up to 8 tablets a day (and may take 6-12 hours for effect). If you are constipated or have not had a bowel movement in 2 days, you may add in polyethylene glycol (Miralax) 17g(one capful) 1-2 times daily (may take 1-2 days for effect). If this is ineffective you may add Milk of Magnesia 30mL (2 Tablespoons) daily (may take 30minutes - 6 hours to work). The next step is to use Magnesium Citrate 1 bottle (295mL)- this usually produces a bowel movement in 30 minutes-3 hours. Please call if you have not had a bowel movement in 3-4 days. Driving: Do not drive until you are off of all narcotic medications and you are not feeling pain and able to react quickly to press the brake pedal; usually between a couple of days to 2 weeks. Shower/Bath: Showering is fine. Short baths are okay but you should avoid having any abdominal incision submerged for more than 10-15 minutes for the next 2 weeks. Wound Care: Your incisions are closed with dissolvable stitches. The stitches do not need to be removed- they will dissolve on their own. The steri-strips will start to peel off in 5-7 days, do not pick or rub prior to this. Pain Control: For your post-operative pain please use acetaminophen, heating pad, and narcotic painmedication (Dilaudid or hydromorphone) for your pain management. Your goal is to be able to take several short walks every day (increase the duration each day) and to be able to sleep at night. If you are unable to do these things using the acetaminophen and heating pad then you will need to use the narcotic pain medication (Dilaudid) for breakthrough pain. You should be able to use less oxycodone every couple days and require no breakthrough narcotic pain medication in about 1-4 days. Do not use ibuprofen (Advil/Motrin) or naproxen (Aleve/Naprosyn) as you are taking apixaban (Eliquis) Please use acetaminophen (Tylenol) 650mg every 6 hours as needed (or 1000mg every 8 hours as needed). Do not exceed 3000mg of acetaminophen from any source in 24 hours. Please use Dilaudid 2mg every 4-6 hours as needed for pain that ???breaks through?? the acetaminophen. Please do NOT take Dilaudid in conjunction with tramadol. Please take your medication exactly as prescribed. Read all instructions that come with your medication. Using narcotic pain medication (such as oxycodone, hydrocodone, hydromorphone [Dilaudid], morphine,fentanyl, or tramadol [Ultram]) may cause addiction. While addiction is more common in people with a personal or family history of addiction, it can occur in anyone. Taking more than the prescribed amount of medication or using with alcohol or other drugs can causeyou to stop breathing resulting in coma, brain damage, or . Opioids (oxycodone, hydrocodone, hydromorphone [Dilaudid], morphine, fentanyl, tramadol [Ultram]) can slow reaction time, cause drowsiness, or cloud judgement. It is unsafe for you to drive or operate heavy machinery while taking this medication. Opioids (oxycodone, hydrocodone, hydromorphone [Dilaudid], morphine, fentanyl, tramadol [Ultram]) are at risk of being diverted by anyone with access to your home. Opioids should be stored in a safe and secure place, such as a locked cabinet or safe. Unused opioids (oxycodone, hydrocodone, hydromorphone [Dilaudid], morphine, fentanyl, tramadol [Ultram]) should be disposed of according to the label or patient information. If there are no specific instructions, medications may be returned to a take-back location or mixed with a small amount of water and an undesirable waste substance such as coffee grounds or cat litter. documented in this encounter Medications at Time [...] Take 1 capsule by mouth daily. 03/03/2023 HYDROmorphone (Dilaudid) 2 mg tablet Take 1 tablet by mouth every 4 hours as needed for Pain. 5 tablet 04/23/2024 05/08/2024 lovastatin (Mevacor) 40 mg tablet Take 1 tablet by mouth nightly. 12/25/2020 05/08/2024 meclizine (Antivert) 25 mg tablet Three times daily as needed. 04/05/2022 05/08/2024 traMADoL (Ultram) 50 mg tablet Take 50 mg by mouth Every 6 hours as needed. 10/27/2023 10/12/2024 apixaban (Eliquis) 5 mg Tablet 2 times daily. 02/26/2017 05/08/2024 documented as of this encounter H&P Notes * Rock Wilkerson MD - 04/23/2024 7:26 AM EDT Images from the original note were not included. Gynecologic Oncology Pre-operative H&P HISTORY OF PRESENT ILLNESS: Lucero Arthur is a 74 y.o. P3 patient with PMH of diverticular disease, CHRISTOPHER (not on CPAP), depression, pAFib on apixaban and diltiazem, h/o tubal ligation. She is scheduled for a total laparoscopic hysterectomy, bilateral salpingo-oophorectomy for persistent postmenopausal bleeding in the setting of benign endometrial biopsies. She last saw Dr. Burkett on 03/03/2024; consents were signed. Today, she reports no recent changes in her health or medications. She desires to proceed with the scheduled procedures. Denies lightheadedness, chest pain, shortness of breath, abdominal pain, leg cramping. Last took apixaban on Friday (10mg). Gynecologic history: Menarche was approximately age 13 menopause approximately age 55. Number of pregnancies: 3, Spontaneous vaginal deliveries: 3 c-sections:0. Oral contraceptive/ control pill use: OCPs for 4-5 years in early 40s. Menopausal hormone therapy use: No. Other contraceptive history: No Pap smears: hx of abnormal pap with ASC-US; Last pap was normal ~67yo she thinks Cancer screening 1. Mammography: Up to date; January 2024. 2. Colonoscopy: Up to date; Last ~10 years ago. Family history: Breast: Maternal grandmother-80s Endometrial: Mother-50s Ovarian:No Colon:No Pancreas:No Other: No Past medical history 1. Diverticular disease 2. Prediabetes 3. CHRISTOPHER- no CPAP 4. Depression. 5. pAFib- on diltiazem 300mg, Eliquis 10mg daily 6. Left adrenal nodule- currently undergoing work up with [facility] endocrinology 7. Hx of SCC of face Past surgical history 1. 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 40 pack year hx Alcohol history: No Other drugs: No Herbal/alternative therapies: Calcium/vitamin D. Performance status: Karnofsky Scale - 100 REVIEW OF SYMPTOMS Constitutional: Negative for activity change, fatigue and fever. Respiratory: Negative for cough, shortness of breath and wheezing. Cardiovascular: Negative for chest pain, palpitations and leg swelling. Gastrointestinal: Negative for abdominal pain, nausea and vomiting. Genitourinary: Negative for pelvic pain and vaginal bleeding. Neurological: Negative for dizziness and headaches. Allergies: Allergies Allergen Reactions Glucose Nausea Only Oxycodone-Acetaminophen Other (See Comments) Other reaction(s): hallucinations Alendronate Sodium Nausea Only Contact Metal Agent No current facility-administered medications on file prior to encounter. Current Outpatient Medications on File Prior to Encounter Medication Sig Dispense Refill lovastatin (Mevacor) 40 mg tablet Take 1 tablet by mouth nightly. cholecalciferol (Vitamin D3) 1,000 unit tablet Take 1,000 Units by mouth Daily. dilTIAZem CD (Cardizem CD) 300 mg CD (ER) 24 hr casule Take 1 capsule by mouth daily. traMADoL (Ultram) 50 mg tablet Take 50 mg by mouth Every 6 hours as needed. apixaban (Eliquis) 5 mg Tablet 2 times daily. meclizine (Antivert) 25 mg tablet Three times daily as needed. Social History Tobacco Use Smoking status: Former Current packs/day: 0.00 Average packs/day: 2.0 packs/day for 30.0 years (60.0 ttl pk-yrs) Types: Cigarettes Start date: 1972 Quit date: 2002 Years since quittin.4 Smokeless tobacco: Never Substance Use Topics Alcohol use: Never OBJECTIVE: Last value Range last 8 hrs Temperature Temp: -- Heart Rate Heart Rate: -- Blood Pressure BP: -- Respiratory Rate Resp: -- SpO2 SpO2: -- Vital signs not taken yet - will review prior to OR Constitutional: Well-developed and well-nourished. No distress. Cardiovascular: Normal rate, regular rhythm and normal heart sounds. Pulmonary/Chest: Effort normal and bilateral breath sounds clear to auscultation Abdominal: Soft, normal bowel sounds. She exhibits no distension. There is no tenderness. Neurological: She is alert 11/2023 TVUS: A/P: Lucero Arthur is a 74 y.o. patient with PMH significant for diverticular disease, CHRISTOPHER (not on CPAP), depression, pAFib on apixaban and diltiazem, h/o tubal ligation presenting today for total laparoscopic hysterectomy, bilateral salpingo-oophorectomy for persistent postmenopausal bleeding in the setting of benign endometrial biopsies.. She is doing well today and ready for surgery. Plan to proceed with scheduled procedure Antibiotics - 2g cefazolin, 500mg metronidazole DVT prophylaxis - SCDs, 5000U heparin Patient's preferred pharmacy is [facility] in [place], [place]. ORT and opioid consent completed today. Low risk ORT. Can take Tylenol post-operatively, will avoid NSAIDs given on apixaban, plan to restart on POD#1-2. Patient confirms no adverse reaction to Tylenol previously, not sure if she has had a reaction to oxycodone (hallucinations listed in chart). Will plan to send home with 5# of 2mg Dilaudid PRN Surgical consent reviewed, aware of need for possible open surgery, possible staging Dispo - anticipate same day discharge To be discussed with Dr. Burkett, attending gynecologic oncologist Rock Wilkerson MD, PGY3 Obstetrics and Gynecology 04/23/2024 Associated attestation - Aleah Burkett MD - 04/23/2024 9:29 PM EDT Into see patient prior to her surgery. We reviewed the planned procedure. Consents complete and in her chart. Questions answered. documented in this encounter Miscellaneous Notes * Op Note - Aleah Burkett MD - 04/23/2024 9:[address] [facility] Operative Note Patient Name: Lucero Arthur : [id number] MR#: [id number] Case Date: 04/23/2024 Surgeon: Surgeons and Role: * Aleah Burkett MD - Primary * Debra Russell MD - Resident - Assisting * Rock Wilkerson MD - Resident - Assisting Preoperative diagnosis: PMB Postoperative diagnosis: PMB Procedure(s) (LRB): LAPAROSCOPY, TOTAL HYST, UTERUS<250GMS, REM TUBE &/OR OVARY (WRVU 15) (N/A) Findings: On exam under anesthesia small mobile cervix, no palpable masses. On laparoscopy filmy adhesions of the ovary to the sigmoid colon mesentery. Otherwise normal-appearing uterus tubes and ovaries. The uterus was benign on frozen section. Anesthesia: General Estimated Blood Loss: 25 mL Specimens removed during surgery: Order Name Source Comment Collection Info Order Time SPECIMEN TO PATHOLOGY [id number] Please freeze endometerium PMB Uterus,cervix,bilateral tubes and ovaries biopsy YES, Please perform frozen section No 04/23/2024 10:15 AM Number of tissue samples (in container) 1 Time specimen removed from patient: 10:15 AM Biospecimen to store? No Drains: * No LDAs found * Surgical Closure: Primary Closure - skin incision is completely closed without any wires, vivien, drains or other devices Disposition: awakened from anesthesia, extubated and taken to the recovery room in a stable condition, having suffered no apparent untoward event. Condition: doing well without problems (Please see the Surgical Encounter Summary for any Implant and Specimen details pertinent to this patient.) HPI/Surgical Indications: Lucero Arthur is a 74 y.o. postmenopausal female, who presents for persistent PMB and thickened endometrium on TVUS. Lucero was previously seen by Dr. Rosario at [facility] for PMB for 3 years. She notes she has had dailybleeding during this time that has fluctuated in heaviness. She does get cramping with bleeding, and at its heaviest, she was passing quarter-sized clots and felt lightheaded/dizzy. She underwent EMBin 12/2022 with benign pathology. She was then started on Aygestin daily for 3 months without improvement in her bleeding; therefore, she underwent hysteroscopy, D&C in April 2023 that demonstratedpolypoid fragments, but otherwise benign. 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 Follow up ultrasound in 08/2023 demonstrated a ~2cm thick endometrial lining that was persistently noted on follow up TVUS on 12/08/2023. This ultrasound also demonstratedtwo fibroids- one anterior 3.3cm and one posterior 3.3cm. She then stopped the Aygestin in early January 2024 and notes she hemorrhaged but now has scant bleeding for the last 5 days. She denies any nausea, emesis, bloating, early satiety, weight change, change in bowel or bladder pattern. Procedure Description: Informed consent was signed. The patient was taken to the operating room where she was put asleep under general anesthesia. She was placed in dorsolithotomy position. SCDs wereplaced. She received heparin for VTE prophylaxis. She received Ancef and Flagyl for infection prophylaxis. A verbal timeout was performed. An exam under anesthesia was performed with findings as noted above. The vagina and perineum were prepped. A medium Vcare was sutured to the anterior lip of thecervix. A Hill was placed with sterile technique. Attention was then turned the abdomen. The eye was prepped and the patient was draped. A small incision was made the base the umbilicus. A Veress needle was inserted and pneumoperitoneum was obtained with opening pressures. A 5 mm trocar was then inserted and diagnostic laparoscopy was performed with findings as noted above. Additional trocars were placed in the right left lower quadrants under direct visualization. All trocars were 5 mm. The patient was placed in steep Trendelenburg. The procedure was started by doing a lysis of adhesions ingrid t took approximately 30 minutes. This the sigmoid colon mesentery from the posterior uterus and the left adnexa. The retroperitoneal space was entered on the left lateral to the infundibulopelvic ligament. The ureter was identified and the infundibulopelvic ligament cauterized and transected well away from the ureter. The round ligament cauterized and transected the bladder flap was kait blackmon. This was repeated on the patient's right side. The bladder flap was completed and the bladder was dissected off the underlying cervix. In this process the bladder was backfilled to confirm the edge of the bladder. Once this was done and the bladder was completely dissected off the underlying cervix the uterine vessels were skeletonized cauterized and transected bilaterally. Sequential bites were then taken peril adjacent to the cervix to level the Vcare cup was reached. Hook monopolar was used to make a colpotomy and this was carried around circumferentially. The uterus cervix tubes and ovaries and delivered through the vagina and the uterus was sent for frozen section. This returned benign. The vaginal cuff was closed with a 9 inch oh V-Loc in a running fashion starting at 1 apex extending to the other apex and back to the initial apex for a double layer suture closure. Each apex was anchored to the uterosacral ligaments. The pelvis was copiously irrigated and found to be hemostatic. The patient tolerated the procedure well and was awakened in the operating room. Sponge needleinstrument counts were correct x 2. Surgical Infection Prevention Bundle Used? Yes Infection present at time of surgery?: No Chlorhexidine wipes in Same Day prior to surgery: Yes Expected bowel surgery? No. Fingerstick glucose checked in Same Day: Yes Chlorhexidine-alcohol skin prep: Yes Pre-op IV antibiotics: Cefazolin + Metronidazole Vaginal prep: Yes. Povidone-iodine Open case? No. Attestation: Case Date: 04/23/2024 I was present and I participated during the entire procedure (does not need to include opening and closing). ALEAH BURKETT MD 04/23/2024 documented in this encounter Plan of Treatment Upcoming Encounters Date Type Department Care Team (Late st Contact Info) Description 11/04/2024 11:15 AM EST Appointment [place] [address] 11/10/2024 8:00 AM EST Office [place] [address] Clarisse Duke APRN [facility] [place] [address] 11/15/2024 10:[address] [place] [id number] Karli Morales MD [facility] [place] [address] 11/15/2024 11:20 AM EST Office [place] [address] Marvin Kimball PA [facility] [place] [address] 12/15/2024 4:40 PM EST TH Visit (TeleHealth) Cardiology at [address] [phone] Duane Causey MD [facility] [place] [address] documented as of this encounter Procedures Procedure Name Priority Date/Time Associated Diagnosis Comments SURGICAL PATHOLOGY REPORT Routine 04/23/2024 10:15 AM EDT SPECIMEN TO PATHOLOGY STAT 04/23/2024 10:15 AM EDT Laparoscopy W Tot Hysterectuterus <=250 Gram W Tube/Ovary ([id number]) Yes 04/23/2024 8:35 AM EDT PMB POCT GLUCOSE Routine 04/23/2024 7:45 AM EDT documented in this encounter Results * Surgical Pathology Report (04/23/2024 10:15 AM EDT) Final Diagnosis [id number] ? Location: [facility]; The signing pathologist has (i) examined the relevant preparation(s) for the specimen(s) and (ii) rendered or confirmed the diagnosis(es). . ?Surgical Pathology DIAGNOSIS Uterus, cervix, bilateral fallopian tubes and ovaries, ?hysterectomy and bilateral salpingo- ??oophorectomy: - Benign cervix. - Benign inactive endometrium with submucosal leiomyoma. - Benign bilateral ovaries with cortical inclusion cysts. - Benign bilateral fallopian tubes with paratubal cysts. Electronically signed by: ?Keller DO, Kymberly E Verified: ??04/29/2024 11:07 ??Pathologist Performed at: ??-[facility] Dept. of Pathology, [place] [address] Legislative Director: June Gilman MD, FCAP, ??CLIA Certificate: [id number] SPECIMEN(S) SUBMITTED A - Uterus, cervix, bilateral tubes and ovaries, biopsy (1) ?for frozen section CLINICAL INFORMATION PMB SPECIMEN PROCESSING A - Labeled/Fixative: Uterus, cervix, bilateral tubes and ovaries, fresh. Quantity: Single Size: Cornu to cornu: 3.0 cm Anterior to posterior: 2.5 cm Dome to Cervix: 7.5 cm Weight (overall): 19 g Tissue Description: Intact, simple hysterectomy. UTERUS Endometrium: Zapata-brown, with a 0.6 x 0.3 cm raised deluca endometrial nodule, see AFS #1. Myometrium: Intramural nodule measuring 0.9 cm in diameter within the posterior wall. Serosa: Glistening and pink-zapata. CERVIX Diameter: 3.3 cm Abnormalities: None identified. Os: 1.0 cm, slit-like RIGHT OVARY ?? Size: 2.4 x 1.0 x 0.7 cm. ?? Outer Surface: Zapata-yellow, smooth. ?? Cut Surface: With small cysts containing clear fluid, averaging 0.3 cm. Right Fallopian Tube: 3.9 x 0.5 cm, fimbriated. LEFT OVARY ?? Size: 1.9 x 1.4 x 1.0 cm. ?? Outer Surface: Zapata-deluca, smooth. ?? Cut Surface: unremarkable. Left Fallopian Tube: 0.4 x 0.4 cm, no fimbria identified, suspected tube. Sections/Processin g: The following tissue is submitted for frozen section: FS #1. Asphalt Engineer sections in 11 cassettes as follows: ?A1: ??Remnants of the frozen ?A2: ??Anterior cervix ?A3: ??Posterior cervix ?A4: ??Additional representatives of the intramural nodule in the posterior wall . SPECIMEN PROCESSING ?A5: ??Left ovary, new accounts banking representative section ?A6: ??Left suspected fallopian tube remnants ?A7: ??Right ovary, new accounts banking representative ?A8-A9: ??Right fimbria, longitudinal sections, entirely submitted ?A10: ??Right fallopian tube, cross-sections, new accounts banking representative ?A11: ??Full-thickness, anterior wall ??AOO ?Frozen Section FROZEN SECTION DIAGNOSIS AFS - Uterus, cervix, bilateral tubes and ovaries, biopsy (1) ? for frozen section: Endometrium: Benign inactive endometrium, small submucosal leiomyoma 04/23/24 10:44 Electronically signed by: ?Derrick GAMBOA, Georgette Henriquez Verified: ??04/23/2024 10:47 ??Pathologist Performed at: ??-[facility] Dept. of Pathology, [place] [address] Legislative Director: June Gilman MD, FCAP, ??CLIA Certificate: [id number] This intraoperative consultation should be interpreted as a preliminary diagnosis pending review of the entire specimen and special studies, if any. A final Surgical Pathology report will follow this preliminary Frozen Section report(s). 04/29/2024 11:07 AM EDT [facility] Uterine Corpus 04/23/2024 10 :15 AM EDT 04/23/2024 10:15 AM EDT Aleah Burkett MD PATHOLOGY/CYTOLOGY ORDERABLES Performing Organization Address [facility] de Phone Number [facility] [place] [address] * Specimen to Pathology (04/23/2024 10:15 AM EDT) AP Specimen 04/23/2024 10:1 5 AM EDT 04/23/2024 10:15 AM EDT Narrative [facility] - 04/23/2024 10:15 AM EDT Specimen requisition ordered. ??Separate Pathology report to follow Aleah Burkett MD PATHOLOGY/CYTOLOGY ORDERABLES [facility] [place] [address] * POCT Glucose (04/23/2024 7:45 AM EDT) Glucose, POC 120 65 - 199 mg/dL [facility] Comment: Supplemental ranges: <140 mg/dL before meals <180 mg/dL all other times of the day Blood 04/23/2024 7:45 AM EDT 04/23/2024 7:45 AM EDT Aleah Burkett MD POINT OF CARE TEST ORDERABLES [facility] [place] [address] documented in this encounter Visit Diagnoses Not on filedocumented in this encounter Administered Medications Inactive Administered Medications - up to 3 most recent administrations Medication Order MAR Action Action Date Dose Rate Site acetaminophen (Tylenol) tablet 975 mg 975 mg (rounded from 1,000 mg), Oral, ONCE, 1 dose, On Fri04/23/24 at 0800, Maximum dose of acetaminophen is 4000 mg from all sources in 24 hours. When ordered for pain, acetaminophen should be given even when other ordered pain medications are indicated. , Routine Given 04/23/2024 8:07 AM EDT 975 mg BUpivacaine (pf) (Marcaine) (2.5 mg/mL) 0.25% injection PRN, Starting on Fri04/23/24 at 0925, Until Fri04/23/24 at 1612, Intra-Operative (Intra-Procedure), Routine Given 04/23/2024 9:25 AM EDT 10 mLs 19- Surgical Site fentaNYL (pf) (50 mcg/mL) multi-dose injection 25 mcg 25 mcg, Intravenous, EVERY 5 MIN PRN, Starting on Fri04/23/24 at 1053, Until Fri04/23/24 at 1412, Pain, Mild to moderate pain (1-5 out of 10), Hold for respiratory rate less than 10 per minute. Maximum dose 200 mcg over one hour, including OR administration. If ordered with HYDROmorphone or morphine, give HYDROmorphone or morphine first and use fentaNYL for breakthrough pain., PACU Recovery, Routine Given 04/23/2024 11:46 AM EDT 25 mcg Given 04/23/2024 11:37 AM EDT 25 mcg Given 04/23/2024 11:32 AM EDT 25 mcg heparin (porcine) (5,000 units/1 mL) subcutaneous injection 5,000 Units 5,000 Units, Subcutaneous, ONCE, 1 dose, On Fri04/23/24 at 0815, Day of Surgery (Day of Procedure), Routine Given 04/23/2024 8:07 AM EDT 5,000 Un its HYDROmorphone (Dilaudid) tablet 2 mg 2 mg, Oral, ONCE PRN, 1 dose, Starting on Fri04/23/24 at 1119, Until Fri04/23/24 at 1214, Pain, Routine Given 04/23/2024 12:14 PM EDT 2 mg prochlorperazine (Compazine) (5 mg/mL) injection 5 mg 5 mg, Intravenous, EVERY 30 MIN PRN, 2 doses, Starting on Fri04/23/24 at 1053, Until Fri04/23/24 at 1412, Nausea, Vomiting, If multiple antiemetics ordered, use ondansetron first and if ineffective use prochlorperazine or haloperidoL second, PACU Recovery, Routine Given 04/23/2024 11:44 AM EDT 5 mg documented in this encounter Active and Recently Administered Medications Times are shown in EDT. Scheduled Medication Order 04/21/2024 04/22/2024 04/23/2024 acetaminophen (Tylenol) tablet 975 mg (COMPLETED) 975 mg (rounded from 1,000 mg), Oral, ONCE, 1 dose, On Fri04/23/24 at 0800, Maximum dose of acetaminophen is 4000 mg from all sources in 24 hours. When ordered for pain, acetaminophen should be given even when other ordered pain medications are indicated. , Routine 0807 (Given - Provid er: Stephanie Kelly RN) ceFAZolin (Ancef) 2 g vial attach to sodium chloride 0.9% 100 mL Mini-Bag Plus (COMPLETED)(Linked Group 1) 2 g, Intravenous, ONCE, 1 dose, On Fri04/23/24 at 0815, Administer over 30 Minutes, Superintendent Commissary to OR Infuse over 30 minutes., Day of Surgery (Day of Procedure), Indication for (Active or Suspected): Prophylaxis 0900 (New Bag - Prov ider: Dayana Peña CRNA) heparin (porcine) (5,000 units/1 mL) subcutaneous injection 5,000 Units (COMPLETED) 5,000 Units, Subcutaneous, ONCE, 1 dose, On Fri04/23/24 at 0815, Day of Surgery (Day of Procedure), Routine 0807 (Given - Provid er: Stephanie Kelly RN) metroNIDAZOLE (Flagyl) 500 mg in sodium chloride 0.9% 100 mL infusion (COMPLETED)(Linked Group 1) 500 mg, Intravenous, ONCE, 1 dose, On Fri04/23/24 at 0815, Administer over 30 Minutes, Superintendent Commissary to OR Infuse over 30 minutes., Day of Surgery (Day of Procedure), Indication for (Active or Suspected): Prophylaxis 0854 (Given - Provid er: Dayana Peña CRNA) Continuous Medication Order 04/21/2024 04/22/2024 04/23/2024 lactated ringers infusion (CANCELED) 1,000 mL, at 100 mL/hr, Intravenous, CONTINUOUS, Starting on Fri04/23/24 at 0800, Until Fri04/23/24 at 1125, Day of Surgery (Day of Procedure) 0821 (New Bag - Prov ider: Dayana Peña CRNA)1053 (Anesthesia Volume Adjustment - Provider: Dayana Peña CRNA) lactated ringers infusion 1,000 mL, at 100 mL/hr, Intravenous, CONTINUOUS, Starting on Fri04/23/24 at 1145, Until Fri04/23/24 at 1612 1145 (Due) PRN Medication Order 04/21/2024 04/22/2024 04/23/2024 BUpivacaine (pf) (Marcaine) (2.5 mg/mL) 0.25% injection (CANCELED) PRN, Starting on Fri04/23/24 at 0925, Until Fri04/23/24 at 1612, Intra-Operative (Intra-Procedure), Routine 0925 (Given - Provid er: Aleah Burkett MD) fentaNYL (pf) (50 mcg/mL) multi-dose injection 25 mcg (CANCELED)(Linked Group 2) 25 mcg, Intravenous, EVERY 5 MIN PRN, Starting on Fri04/23/24 at 1053, Until Fri04/23/24 at 1412, Pain, Mild to moderate pain (1-5 out of 10), Hold for respiratory rate less than 10 per minute. Maximum dose 200 mcg over one hour, including OR administration. If ordered with HYDROmorphone or morphine, give HYDROmorphone or morphine first and use fentaNYL for breakthrough pain., PACU Recovery, Routine 1127 (Given - Provid er: Angus Alejo RN)1132 (Given - Provider: Angus Alejo RN)1137 (Given - Provider: Angus Alejo RN)1146 (Given - Provider: Angus Alejo RN) HYDROmorphone (Dilaudid) tablet 2 mg (COMPLETED) 2 mg, Oral, ONCE PRN, 1 dose, Starting on Fri04/23/24 at 1119, Until Fri04/23/24 at 1214, Pain, Routine 1214 (Given - Provid er: Angus Alejo RN) prochlorperazine (Compazine) (5 mg/mL) injection 5 mg (CANCELED) 5 mg, Intravenous, EVERY 30 MIN PRN, 2 doses, Starting on Fri04/23/24 at 1053, Until Fri04/23/24 at 1412, Nausea, Vomiting, If multiple antiemetics ordered, use ondansetron first and if ineffective use prochlorperazine or haloperidoL second, PACU Recovery, Routine 1144 (Given - Provid er: Angus Alejo RN) Linked Groups Order Group 1: ceFAZolin (Ancef) 2 g vial attach to sodium chloride 0.9% 100 mL Mini-Bag Plus (COMPLETED)Jump to med 2 g, Intravenous, ONCE, 1 dose, On Fri04/23/24 at 0815, Administer over 30 Minutes, Superintendent Commissary to OR Infuse over 30 minutes., Day of Surgery (Day of Procedure), Indication for (Active or Suspected): Prophylaxis And metroNIDAZOLE (Flagyl) 500 mg in sodium chloride 0.9% 100 mL infusion (COMPLETED)Jump to med 500 mg, Intravenous, ONCE, 1 dose, On Fri04/23/24 at 0815, Administer over 30 Minutes, Superintendent Commissary to OR Infuse over 30 minutes., Day of Surgery (Day of Procedure), Indication for (Active or Suspected): Prophylaxis Group 2: fentaNYL (pf) (50 mcg/mL) multi-dose injection 25 mcg (CANCELED)Jump to med 25 mcg, Intravenous, EVERY 5 MIN PRN, Starting on Fri04/23/24 at 1053, Until Fri04/23/24 at 1412, Pain, Mild to moderate pain (1-5 out of 10), Hold for respiratory rate less than 10 per minute. Maximum dose 200 mcg over one hour, including OR administration. If ordered with HYDROmorphone or morphine, give HYDROmorphone or morphine first and use fentaNYL for breakthrough pain., PACU Recovery, Routine Or fentaNYL (pf) (50 mcg/mL) multi-dose injection 50 mcg (CANCELED) 50 mcg, Intravenous, EVERY 5 MIN PRN, Starting on Fri04/23/24 at 1053, Until Fri04/23/24 at 1412, Pain, Moderate to severe pain (6-10 out of 10), Hold for respiratory rate less than 10 per minute. Maximum dose 200 mcg over one hour, including OR administration. If ordered with HYDROmorphone or morphine, give HYDROmorphone or morphine first and use fentaNYL for breakthrough pain., PACU Recovery, Routine documented in this encounter Care Teams Waterproofer Helper Relationship Specialty Start Date End Date Dorita Zimmerman, RICHARD PCP - General Family Medicine 04/27/22 09/08/24 documented as of this encounter
--- OUTSIDE RECORDS SUMMARY | 2024-10-20 17:32 | XMS_ITS | Encounter Summary ---
Author Organization [facility] Address [facility] [place] [address] Care Team Providers Care Rock Crushing Machine Operator Name Role Phone Dorita Zimmerman APRN Primary Care Provider [phone] Encounter Details Date Type Department Care Team (Late st Contact Info) Description 12/03/2023 2:20 PM EST Office Visit Dermatology at [facility] [address] [place] [address] Barbra Blankenship MD [facility] [place] [address] Toney angioma; SK (seborrheic keratosis); History of SCC (squamous cell carcinoma) of skin; Multiple benign nevi; Lentigines; Psoriasis; Granuloma annulare Social History Tobacco Use Types Packs/Day Years Used Date Smoking Tobacco: Former Cigarettes 2 30 1 973 - 2003 Smokeless Tobacco: Never Sex and Gender Information Value Date Recorded Sex Assigned at Not on file Gender Identity Not on file Sexual Orientation Not on file documented as of this encounter Progress Notes * Barbra Blankenship MD - 12/03/2023 2:20 PM EST Images from the original note were not included. DEPARTMENT OF DERMATOLOGY Medical Dermatology Clinic Provider: Barbra Blankenship MD Patient's preferred name Lucero Preferred contact method for results [x]Phone []myD-H []Letter Detailed phone message OK? Yes Are there any other people with whom we may discuss your care? Past Medical History Date, location, treatment Melanoma No Dysplastic nevi No SCC 06/27/2022: left malar cheek s/p Mohs BCC No AKs No UV Exposure & Protection Other relevant past medical history + Psoriasis Family History Details Melanoma No NMSC No Other relevant family history + Psoriasis Social History Occupation: Hobbies: Other: Pre-Procedure Questions Details Allergy to lidocaine, epinephrine, Dermabond, chlorhexidine, or adhesives No Bleeding disorder or blood thinners Yes Implanted devices (Pacemaker, defibrillator, deep brain stimulator, cochlear implant) No History of Present Illness: Lucero Arthur is a 73 y.o. Patient returns to clinic today for a full skin exam. The patient presents with no concerns. Last visit at Dermatology: 09/25/2022 Last visit with this provider: Visit date not found Medications: Reviewed in eD-H Allergies: Reviewed in eD-H Skin Examination: Full skin examination: Patient asked to undress to their comfort level. Verbalized that the provider???s preference is that the patient remove all clothing and that the provider will not examine areas patient elects to keep covered. Patient elects to keep bra and underwear on and have the following examined: scalp, hair, head, face, ears, neck, chest, axillae, abdomen, back, buttocks, and upper and lower extremities. Bra-covered area, genitalia, and buttocks were not examined. Assessment/Plan # Granuloma Annulare - Barely perceptible semi-annular erythematous plaques of the right arm; no scale or epidermal change. - per pt present for 20 yrs and not bothersome; declines tx. No h/o DM - Previously diiscussed diagnosis, etiology, typical distribution on acral surfaces, management options, and possibility of spontaneous resolution. - [place] decision not to treat unless lesions become bothersome. - Instructed patient to RTC if condition worsens; would consider ILK or potent topical steroid (BIDfor 2 weeks then 2 weeks off); patient prefers no treatment at this time #. Seborrheic keratoses Scattered yellow to zapata stuck on papules 3-6 mm in size on chest, back, arms, and legs -benign nature of lesions discussed -patient reassured. # Benign-Appearing Nevi - Medium brown, evenly pigmented macules and papules scattered on the trunkand extremities. Reassuring pigment pattern on dermoscopy. - Discussed benign appearance and provided reassurance. Will continue to monitor. - Advised patient to watch for anything new or changing. Discussed changes (bleeding, pain, change in color or shape) that should prompt re-evaluation. # Lentigines - Scattered light-brown, evenly pigmented, well-demarcated macules on sun-exposed areas of the trunk and extremities. - No worrisome pigmented lesions. Discussed benign nature of lesions and provided reassurance. Willcontinue to monitor. # Toney Angiomas - Multiple bright red, well-demarcated papules on the trunk and extremities. - Discussed benign nature of lesions and provided reassurance. No treatment necessary at this time. # History of SCC on the left cheek - Will continue to monitor # Personal history of psoriasis; clear skin on examination, not addressed. - No treatments at this time Other: N/A RTC: 1 year for FSE []Note routed to junior legal secretary []Recall placed in scheduling system []Appointment scheduled at checkout Scribe attestation: Chet Torres has performed the documentation for this encounter in the presence of and acting as a scribe for Barbra Blankenship MD. I performed the above scribed service and agree with the accuracy of the documentation in this encounter. Reviewed and signed by: Barbra Blankenship MD Dermatology [facility] Staff ambulance operations supervisor: Desirae Zepeda MD Dermatology [facility] * Desirae Zepeda MD - 12/03/2023 2:20 PM EST I was the supervising physician working with the Dermatology resident, Barbra Blankenship MD, in the care of this Dermatology patient in person. For the purposes of billing, the resident provided the care. I have reviewed the encounter note details and level of service. DESIRAE ZEPEDA MD Staff Fork Truck Driver Department of Dermatology [facility] documented in this encounter Plan of Treatment Upcoming Encounters Date Type Department Care Team (Late Contact Info) Description 11/04/2024 11:15 AM EST Appointment [place] [address] 11/10/2024 8:00 AM EST Office Visit Neurology at [place] [address] Clarisse Duke APRN [facility] [place] [address] 11/15/2024 10:[address] Scan at [address] Karli Morales MD [facility] [place] [place] [address] 11/15/2024 11:20 AM EST Office Visit Neurosurgery at [place] [address] Marvin Kimball PA [facility] [place] [address] 12/15/2024 4:40 PM EST TH Visit (TeleHealth) Cardiology at [place] [address] Duane Causey MD [facility] [place] [address] documented as of this encounter Visit Diagnoses Diagnosis Toney angioma Nevus, non-neoplastic SK (seborrheic keratosis) Other seborrheic keratosis History of SCC (squamous cell carcinoma) of skin Personal history of other malignant neoplasm of skin Multiple benign nevi Benign neoplasm of skin, site unspecified Lentigines Other dyschromia Psoriasis Other psoriasis Granuloma annulare Other specified erythematous condition documented in this encounter Care Teams Rock Crushing Machine Operator Relationship Specialty Start Date End Date Dorita Zimmerman APRN PCP - General Family Medicine 04/27/22 09/08/24 documented as of this encounter
--- OUTSIDE RECORDS SUMMARY | 2024-10-20 17:32 | XMS_ITS | Encounter Summary ---
Author Organization [facility] Address [facility] [place] [address] Care Team Providers Care Metal Sheet Roller Operator Name Role Phone oShailDorita mccurdy Yajaira RAMOS Primary Care Provider Encounter Details Date Type Department Care Team (Late st Contact Info) Description 09/25/2022 1:20 PM EDT Office Visit Dermatology at [facility] [address] [place] [address] Rosalinda Rodarte MD [facility] [place] [place] [address] History of SCC (squamous cell carcinoma) of skin; Solar lentigo; Toney angioma; Granuloma annulare Social History Tobacco Use Types Packs/Day Years Used Date Smoking Tobacco: Never Assessed Sex and Gender Information Value Date Recorded Sex Assigned at Not on file Gender Identity Not on file Sexual Orientation Not on file documented as of this encounter Progress Notes * Rosalinda Rodarte MD - 09/25/2022 1:20 PM EDT Images from the original note were not included. DEPARTMENT OF DERMATOLOGY Medical Dermatology Clinic Provider: Rosalinda Davis MD Patient's preferred name Lucero Preferred contact method for results [x]?Phone []?myD-H []?Letter Detailed phone message OK? Yes Are there any other people with whom we may discuss your care? Past Medical History Date, location, treatment Melanoma No Dysplastic nevi No SCC 06/27/2022: left malar cheek s/p Mohs BCC No AKs No UV Exposure & Protection ?? Other relevant past medical history + Psoriasis Family History Details Melanoma No NMSC No Other relevant family history + Psoriasis Social History Occupation: Hobbies: Other: ?? Pre-Procedure Questions Details Allergy to lidocaine, epinephrine, Dermabond, chlorhexidine, or adhesives No Bleeding disorder or blood thinners Yes Implanted devices (Pacemaker, defibrillator, deep brain stimulator, cochlear implant) No ?? History of Present Illness: Lucero Arthur is a 72 y.o. year old. Patient returns to clinic today for FSE; no specific spots of concern at this time. Had Mohs procedure this morning to the left cheek and a biopsy on the right hand (benign). Last visit at [facility] Derm: 06/27/2022 Last visit with this provider: 06/27/2022 Medications: Reviewed in eD-H Allergies: Reviewed in eD-H Skin Examination: Full skin examination: Patient asked to undress to their comfort level. Verbalized that the provider's preference is that patient removal all clothing and that the provider will not examine areas patient elects to keep covered. Patient elects to keep underwear and bra on and have the following examined: scalp, hair, head, face, ears, neck, chest, axillae, abdomen, back, and left and right upper and lower extremities. Bra-covered area, genitalia, and buttocks were not examined. Assessment/Plan # Granuloma Annulare - Annular and semi-annular plaques composed of erythematous, pink papules on the distal extremities; no scale or epidermal change. - per pt present for 20 yrs and not bothersome; declines tx. No h/o DM - Discussed diagnosis, etiology, typical distribution on acral surfaces, management options, and possibility of spontaneous resolution. - [place] decision not to treat unless lesions become bothersome. - Instructed patient to RTC if condition worsens; would consider ILK or potent topical steroid (BIDfor 2 weeks then 2 weeks off); patient prefers no treatment at this time # Benign-Appearing Nevi - Medium brown, evenly [...] Personal history of psoriasis; clear skin on examination - No treatments at this time Other items to document in the assessment/plan if relevant Sun protection discussed (protective clothing and SPF30+ broad-spectrum sunscreen) ; detailed discussion on how to apply, sun protective clothing RTC: 1 year for FSE []Note routed to paralegal legal secretary [x]Recall has been placed in scheduling system []Appointment scheduled at checkout Scribe attestation: Enedina Parikh RN who has performed the documentation for this encounter in the presence of and acting as a scribe for Rosalinda Rodarte MD. I performed the above scribed service and agree with the accuracy of the documentation in this encounter. Reviewed and signed by: Rosalinda Rodarte MD Dermatology [facility] * Tashia Ruelas MD - 09/25/2022 1:20 PM EDT I was the supervising physician working with the dermatology resident during this patient's visit. The level of resident supervision for this patient visit was indirect supervision with direct supervision immediately available (definition: [facility] GME Policy Statement on Graduate Medical Education, Sup ervision of Graduate Medical Trainees). I was immediately available to the resident physician for questions and discussion regarding this visit. I have reviewed the encounter note details and level of service. Tashia Ruelas MD Staff Physician documented in this encounter Plan of Treatment Upcoming Encounters Date Type Department Care Team (Late st Contact Info) Description 11/04/2024 11:15 AM EST Appointment Non-Invasive Cardiology Lab [place] [address] 11/10/2024 8:00 AM EST Office Visit Neurology at [place] [address] Clarisse Duke APRN [facility] [place] [address] 11/15/2024 10:[address] Scan at [address] Karli Morales MD [facility] [place] [address] 11/15/2024 11:20 AM EST Office Visit Neurosurgery at [place] [address] Marvin Kimball PA [facility] [place] [address] 12/15/2024 4:40 PM EST TH Visit (TeleHealth) Cardiology at [place] [address] Duane Causey MD [facility] [place] [address] documented as of this encounter Visit Diagnoses Diagnosis History of SCC (squamous cell carcinoma) of skin Personal history of other malignant neoplasm of skin Solar lentigo Other dyschromia Toney angioma Nevus, non-neoplastic Granuloma annulare Other specified erythematous condition documented in this encounter Care Teams Metal Sheet Roller Operator Relationship Specialty Start Date End Date Dorita Zimmerman APRN PCP - General Family Medicine 04/27/22 09/08/24 documented as of this encounter
--- OUTSIDE RECORDS SUMMARY | 2024-10-20 17:32 | XMS_ITS | Encounter Summary ---
Author Organization [facility] Address [facility] [place] [address] Care Team Providers Care Guest Services Lead Name Role Phone Dorita Zimmerman EQUIPMENT WASHER Primary Care Provider [phone] Reason for Visit * Consultation (Routine) - Closed Specialty Diagnoses / Procedures Referred By Aicha beckwith Referred To Contact Dermatology Diagnoses Skin lesion of face Dorita Zimmerman APRN [address] [place] [address] [facility] Dermatology [address] [place] [address] Referral ID Status Reason Start Date Expiration Date V isits Requested Visits Authorized [id number] Closed Consult, Test & Treat PCP Updated and/or Approved 06/13/2022 06/13/2023 6 6 Encounter Details Date Type Department Care Team (Late st Contact Info) Description 06/27/2022 3:20 PM EDT Office Visit Dermatology at [facility] [address] [place] [phone] Rosalinda Rodarte MD [facility] [place] [address] Neoplasm of uncertain behavior, unspecified Social History Tobacco Use Types Packs/Day Years Used Date Smoking Tobacco: Never Assessed Sex and Gender Information Value Date Recorded Sex Assigned at Not on file Gender Identity Not on file Sexual Orientation Not on file documented as of this encounter Progress Notes * Rosalinda Davis MD - 06/27/2022 3:20 PM EDT Images from the original note were not included. DEPARTMENT OF DERMATOLOGY Medical Dermatology Clinic Note Provider: Rosalinda Davis MD Patient's preferred name Lucero Preferred contact method for results [x]Phone []myD-H []Letter Detailed phone message OK? Yes Are there any other people with whom we may discuss your care? Past Medical History Date, location, treatment Melanoma No Dysplastic nevi No SCC No BCC No AKs No UV Exposure & [...] Illness: Lucero Arthur is a 72 y.o. Patient is referred to the clinic at [facility] of Dorita Zimmerman for an evaluation of the face. Patient reports the spot of concern is on herleft cheek and has been present for 20 years.Patient reports it has become more bothersome and itchy. Review of Systems: General: Feeling well. Skin: No other skin concerns. Medications: Reviewed in eD-H Allergies: Reviewed in eD-H Skin Examination: Focused skin examination of the face was normal with the exception of the findings below. Assessment/Plan #. SCC vs BCC vs Other - 1cm ill defined pink scaly plaque with focal erosions on the left malar cheek (Figure 1). - Recommended a skin biopsy to confirm/clarify the nature of the skin lesion. After discussion of potential risks (scarring, bleeding, infection) and recurrence, patient agreed to proceed. - Patient denies known allergies to lidocaine and epinephrine. Procedure: Skin shave biopsy Location: left malar cheek Time of procedure: 3:17 PM Discussed indications for procedure and expectations including risks and benefits. Verbal consent obtained. Time out performed. Skin prepped with alcohol. Local anesthesia with 1% xylocaine, 1/100,000 epinephrine. A sample of the lesion was removed by shave technique to the level of the dermis and s ubmitted to Pathology. Hemostasis obtained (AlCl). There were no complications; patient tolerated the procedure well. Wound dressed. Post-procedure expectations, wound care and activity restrictions reviewed. - Follow-up based on pathology results. Figure 1 Photo(s) taken and charted with patient's verbal consent. Other: ??? N/A RTC: Pending Pathology Scribe attestation: CELSA Pugh has performed the documentation for this encounter in the presence of and acting as a scribe for Rosalinda Davis MD. I performed the above scribed service and agree with the accuracy of the documentation in this encounter. Reviewed and signed by: Rosalinda Davis MD Dermatology [facility] Patient seen and evaluated with staff export manager: Sami Olivia MD Department of Dermatology [facility] * Sami Olivia MD - 06/27/2022 3:20 PM EDT I directly supervised the resident during this office visit. The resident physician presented the history and physical exam to me. I then saw and examined this patient with the resident. We reviewed the history and pertinent details and I confirmed the physical exam findings. I agree with the details of the history and physical exam as documented in the resident physician's note. Sami Olivia MD Staff Physician [facility] Dermatology documented in this encounter Miscellaneous Notes * Addendum Note - Sami Olivia MD - 06/27/2022 3:20 PM EDTAddended by: SAMI OLIVIA on: 06/28/2022 09:32 AM Modules accepted: Level of Service documented in this encounter Plan of Treatment Upcoming Encounters Date Type Department Care Team (Late st Contact Info) Description 11/04/2024 11:15 AM EST Appointment Non-[place] [address] 11/10/2024 8:00 AM EST Office Visit Neurology at [place] [address] Clarisse Duke APRN [facility] [place] [address] 11/15/2024 10:[address] Scan at [place] [address] Karli Morales MD [facility] [place] [address] 11/15/2024 11:20 AM EST Office Visit Neurosurgery at [place] [address] Marvin Kimball PA [facility] [place] [address] 12/15/2024 4:40 PM EST TH Visit (TeleHealth) Cardiology at [place] [address] Duane Causey MD [facility] [place] [address] documented as of this encounter Procedures Procedure Name Priority Date/Time Associated Diagnosis Comments SPECIMEN TO PATHOLOGY Routine 06/27/2022 3:52 PM EDT Neoplasm of uncertain behavior, unspecified SURGICAL PATHOLOGY REPORT Routine 06/27/2022 3:17 PM EDT documented in this encounter Results * Specimen to Pathology (06/27/2022 3:52 PM EDT) AP Specimen 06/27/2022 3:52 PM EDT 06/27/2022 3:52 PM EDT Narrative [facility] - 06/27/2022 3:52 PM EDT Specimen requisition ordered. ??Separate Pathology report to follow Sami Silva MD PATHOLOGY/CYTOLOGY ORDERABLES [facility] [place] [address] * Surgical Pathology Report (06/27/2022 3:17 PM EDT) Final Diagnosis [id number] ? Location: [facility] The signing pathologist has (i) examined the relevant preparation(s) for the specimen(s) and (ii) rendered or confirmed the diagnosis(es). . ?Surgical Pathology DIAGNOSIS A. Left malar cheek, skin shave biopsy: - ??Invasive well-differenti ated squamous cell carcinoma, densely inflamed with neutrophilic microabscesses, present at the peripheral and deep specimen edges Electronically signed by: ?Angel Carter MD Verified: ??07/01/2022 17:13 ??Dermatopathol ogist Performed at: ??-[facility] Dept. of Pathology, [place], [place] ADDITIONAL STUDIES Multiple step-leveled sections are examined. SPECIMEN(S) SUBMITTED A - left malar cheek, skin shave biopsy (1) CLINICAL INFORMATION 1 cm ill-defined pink scaly plaque with focal erosions. SCC versus BCC versus other SPECIMEN PROCESSING A - Labeled/Fixativ e: Patient demographics, formalin. Quantity/Size: ??Single, 0.9 x 0.5 cm. Tissue Description: Ovoid, non-oriented zapata-white, slightly domed skin shave with a central 0.1 cm Red brown granular appearing focus. Sections/Proces sing: Inked, serially sectioned and entirely submitted in 2 cassettes as follows: ?A1: ??Tips ?A2: ??Body ??shb 07/01/2022 5:13 PM EDT [facility] SPECIMEN FROM SKIN / Unknown 06/27/2022 3:17 PM EDT 06/27/2022 3:17 PM EDT Rosalinda Rodarte MD PATHOLOGY/CYTOLOG Y ORDERABLES Performing Organization Address City/State/[facility] Co de Phone Number [facility] [place] [address] documented in this encounter Visit Diagnoses Diagnosis Neoplasm of uncertain behavior, unspecified documented in this encounter Care Teams Guest Services Lead Relationship Specialty Start Date End Date Dorita Zimmerman, RICHARD PCP - General Family Medicine 04/27/22 09/08/24 documented as of this encounter
--- OUTSIDE RECORDS SUMMARY | 2024-10-20 17:32 | XMS_ITS | Encounter Summary ---
Author Organization [facility] [place] [address] Care Team Providers Care Pharmacy Analyst Name Role Phone SohailDorita mccurdy Yajaira RAMOS Primary Care Provider [phone] Encounter Details Date Type Department Care Team (Latest Contact Info) Description 11/14/2023 Travel Social History Tobacco Use Types Packs/Day Years Used Date Smoking Tobacco: Former Cigarettes 973 - 2002 Smokeless Tobacco: Never Sex and Gender Information Value Date Recorded Sex Assigned at Not on file Gender Identity Not on file Sexual Orientation Not on file documented as of this encounter Plan of Treatment Upcoming Encounters Date Type Department Care Team (Late st Contact Info) Description 11/04/2024 11:15 AM EST Appointment Non-Invasive [place] [address] 11/10/2024 8:00 AM EST Office [place] [address] Clarisse Duke APRN [facility] [place] [address] 11/15/2024 10:[address] [place] [phone] Karli Morales MD [facility] [place] [address] 11/15/2024 11:20 AM EST Office [place] [address] Marvin Kimball PA [facility] [place] [address] 12/15/2024 4:40 PM EST TH Visit (TeleHealth) Cardiology at [address] [phone] Duane Causey MD [facility] [address] documented as of this encounter Visit Diagnoses Not on filedocumented in this encounter Care Teams Pharmacy Analyst Relationship Specialty Start Date End Date Dorita Zimmerman, RICHARD PCP - General Family Medicine 04/27/22 09/08/24 documented as of this encounter
--- OUTSIDE RECORDS SUMMARY | 2024-10-20 17:32 | XMS_ITS | Encounter Summary ---
[place] [address] Care Team Providers Care Variety Lathe Operator Name Role Phone Dorita Zimmerman APRN Primary Care Provider [phone] Reason for Referral * Consultation (Routine) - Closed Specialty Diagnoses / Procedures Referred By Aicha beckwith Referred To Contact Endocrinology Diagnoses Abnormal CT of the abdomen Dorita Zimmerman APRN [address] [place] [address] [facility] Endocrinology [address] [place] [address] Referral ID Status Reason Start Date Expiration Date V isits Requested Visits Authorized [id number] Closed Consult, Test & Treat PCP Updated and/or Approved 04/29/2022 04/29/2023 12 12 Encounter Details Date Type Department Care Team (Latest Contact Info) Description 04/29/2022 Transcribe Orders eDH Incoming Referrals [phone] Dorita Zimmerman APRN [address] [place], [place] [id number] Abnormal CT of the abdomen Social History Tobacco Use Types Packs/Day Years [...] 11:15 AM EST Appointment Non-Invasive Cardiology Lab [place] [address] 11/10/2024 8:00 AM EST Office Visit Neurology at [place] [address] Clarisse Duke APRN [facility] [place] [address] 11/15/2024 10:[address] Scan at [place] [address] Karli Morales MD [facility] [place] [address] 11/15/2024 11:20 AM EST Office Visit Neurosurgery at [place] [address] Marvin Kimball PA [facility] [place] [place] [address] 12/15/2024 4:40 PM EST TH Visit (TeleHealth) Cardiology at [place] [address] Duane Causey MD [facility] [place] [address] Scheduled Referrals Name Type Priority Associated Diagnoses Order Schedule Referral to Endocrinology Outpatient Referral Routine Abnormal CT of the abdomen Ordered: 04/29/2022 documented as of this encounter Visit Diagnoses Diagnosis Abnormal CT of the abdomen Nonspecific (abnormal) findings on radiological and other examination of abdominal area, including retroperitoneum documented in this encounter Care Teams Variety Lathe Operator Relationship Specialty Start Date End Date Dorita Zimmerman APRN PCP - General Family Medicine 04/27/22 09/08/24 documented as of this encounter
--- OUTSIDE RECORDS SUMMARY | 2024-10-20 17:32 | XMS_ITS | Encounter Summary ---
Author Organization [facility] [place] [address] Care Team Providers Care Cloth Feeder Name Role Phone Dorita Zimmerman RICHARD Primary Care Provider [phone] Encounter Details Date Type Department Care Team (Latest Contact Info) Description 03/03/2024 2:00 PM EDT Laboratory Appointment Lab at [facility] [place] [phone] PMB (postmenopausal bleeding) Social History Tobacco Use Types Packs/Day Years Used Date Smoking Tobacco: Former Cigarettes 2 23 12 973 2002 Smokeless Tobacco: Never Alcohol Use Standard Drinks/Week Comments Never 0 (1 standard drink = 0.6 oz pur e alcohol) [facility] Utilities Answer Date Recorded In [...] in a residential (including now)? No 03/03/2024 IPV Inpatient Questions Answer Date Recorded Does Anyone Try to Keep You From Having Contact with Others or Doing Things Outside Your Home? no 03/03/2024 Feels Threatened by Someone no 02/22 Feels Unsafe at Home or Work/School no 03/03/2024 Physical Signs of Abuse Present no 03/03/2024 Sex and Gender Information Value Date Recorded Sex Assigned at Not on file Gender Identity Not on file Sexual Orientation Not on file documented as of this encounter Plan of Treatment Upcoming Encounters Date Type Department Care Team (Late st Contact Info) Description 11/04/2024 11:15 AM EST Appointment Non-Invasive Cardiology Lab [address] 11/10/2024 8:00 AM EST Office Visit Neurology at [address] Clarisse Duke APRN [facility] [place] [place] [address] 11/15/2024 10:[address] [place] [place] [address] Karli Morales MD [facility] [place] [address] 11/15/2024 11:20 AM EST Office Visit Neurosurgery at [place] [phone] Marvin Kimball PA [facility] [place] [address] 12/15/2024 4:40 PM EST TH Visit (TeleHealth) Cardiology at [address] [phone] Duane Causey MD [facility] [place] [address] Pending Results Name Type Priority Associated Diagnoses Date /Time ABORH Recheck Status Blood Bank Routine 02/22 2:54 PM EDT documented as of this encounter Procedures Procedure Name Priority Date/Time Associated Diagnosis Comments ABORH RECHECK STATUS Routine 03/03/2024 2:54 PM EDT HEMOGRAM Routine 03/03/2024 2:54 PM EDT PMB (postmenopausal bleeding) DIFFERENTIAL, AUTOMATED Routine 03/03/2024 2:54 PM EDT PMB (postmenopausal bleeding) TYPE AND SCREEN, SDP (FUTURE SURGERY, [facility] SAME DAY PROGRAM ONLY) Routine 03/03/2024 2:54 PM EDT PMB (postmenopausal bleeding) CBC (WITH DIFF) Routine 03/03/2024 2:54 PM EDT PMB (postmenopausal bleeding) COMPREHENSIVE METABOLIC PANEL Routine 03/03/2024 2:54 PM EDT PMB (postmenopausal bleeding) documented in this encounter Results * (ABNORMAL) Differential, Automated (03/03/2024 2:54 PM EDT) Neutrophil % 63.8 % [facility] Neutrophil Absolute 6.64(H) 1.70 - 6.10 x10(3)/mc L [facility] Lymph % 25.8 % [facility] Lymphocytes Abs 2.7 0.9 - 3.2 x10(3)/mc L [facility] Monocyte % 8.4 % [facility] Monocyte Abs 0.9 0.3 - 0.9 x10(3)/mc L [facility] Eos % 1.3 % [facility] Eosinophils Abs 0.1 0.0 - 0.4 x10(3)/[facility] Basophil % 0.3 % [facility] Baso Absolute 0.0 0.0 - 0.1 x10(3)/[facility] Immature Gran % 0.40 % [facility] Comment: Immature granulocytes(IG's)percentage and absolute count will include metamyelocytes, myelocytes, and promyelocytes. Blood smears from CBCs yielding IG's will be scanned manually for concordance. If this scan disagrees with the automated IG or if promyelocytes are noted, a manual differential will be performed. Immature Gran Absolute 0.04 0.00 - 0.04 x10(3)/[facility] Blood 03/03/2024 2:54 PM EDT 03/03/2024 3:09 PM EDT Narrative Resulting Agency Comment Spec In Lab Xiomara Burkett MD HEMATOLOGY ORDERAB LES [facility] [place] [address] * (ABNORMAL) Hemogram (03/03/2024 2:54 PM EDT) White Blood Cell 10.4(H) 4.0 - 9.5 x10(3)/[facility] Red Blood Cell 5.70(H) 4.00 - 5.21 x10(6)/[facility] Hemoglobin 16.8(H) 11.7 - 15.5 g/dL [facility] Hematocrit 49.6(H) 35.7 - 45.8 % [facility] Mean Cell Volume 87.0 82.6 - 94.4 fL [facility] Mean Cell Hemoglobin 29.5 27.1 - 32.0 pg [facility] Mean Cell Hemoglobin Concentration 33.9 31.7 - 35.0 g/dL [facility] Platelet 294 145 - 357 x10(3)/mc L [facility] RDW Standard Deviation 40.1 37.0 - 46.0 fL [facility] RDW coefficient of variation 12.7 11.5 - 14.1 % [facility] Mean Platelet Volume 10.0 7.6 - 12.9 fL [facility] NRBC% auto 0.0 % [facility] NRBC Absolute 0.000 0.000 - 0.000 x10(3)/mc L [facility] Blood 03/03/2024 2:54 PM EDT 03/03/2024 3:09 PM EDT Narrative Resulting Agency Comment Spec In Lab Xiomara Burkett MD HEMATOLOGY ORDERAB LES [facility] [place] [address] * (ABNORMAL) Comprehensive metabolic panel (non-fasting) (03/03/2024 2:54 PM EDT) Glucose 86 65 - 199 mg/dL [facility] Comment:Diabetes: >=200 mg/d L plus symptoms Blood Urea Nitrogen 16 8 - 18 mg/dL [facility] Creatinine 0.84 0.70 - 1.20 mg/dL [facility] Sodium 141 135 - 145 mmol/L [facility] Potassium 4.3 3.5 - 5.0 mmol/L [facility] Comment: Please note: ??Patients with WBC >100,000 may have falsely elevated Potassium levels. ??For accurate Potassium quantification in these patients send serum separator tube (gold top) for subsequent determinations. ??Contact the Clinical Chemistry Laboratory if there are any questions. Chloride 104 98 - 107 mmol/L [facility] Carbon Dioxide 26 22 - 31 mmol/L [facility] Anion Gap 11 5 - 15 mmol/L [facility] Calcium 9.9 8.5 - 10.5 mg/dL [facility] Protein, Total 7.0 6.1 - 8.0 g/dL [facility] Albumin 4.2 3.2 - 5.2 g/dL [facility] Aspartate Aminotransferase 23 0 - 30 unit/L [facility] Alanine Aminotransferase 34(H) 0 - 30 unit/L [facility] Alkaline Phosphatase 103 35 - 105 unit/L [facility] Bilirubin, Total 0.3 0.2 - 1.3 mg/dL [facility] Est Glomerular Filtration Rate 74 >=60 mL/min/1. 73 m?? [facility] Comment: This [...] and symptoms in addition to eGFR. Blood 03/03/2024 2:54 PM EDT 03/03/2024 3:09 PM EDT Narrative Resulting Agency Comment Spec In Lab Xiomara Burkett MD CHEMISTRY ORDERABL ES [facility] [place] [address] * Type and Screen Future Surgery, [facility] [place] SAME DAY PROGRAM ONLY) (03/03/2024 2:54 PM EDT) ABORH Type O POSITIVE [facility] Patient BB History Not Found [facility] Expires at [id number] on: 04/17/2024 [facility] Ab Screen Interp Negative [facility] Blood 03/03/2024 2:54 PM EDT 03/03/2024 2:54 PM EDT Narrative Resulting Agency Comment Spec In Lab Xiomara Burkett MD BLOOD BANK LAB ORD ERABLES [facility] [place] [address] documented in this encounter Visit Diagnoses Diagnosis PMB (postmenopausal bleeding) Postmenopausal bleeding documented in this encounter Care Teams Cloth Feeder Relationship Specialty Start Date End Date Dorita Zimmerman APRN PCP - General Family Medicine 04/27/22 09/08/24 documented as of this encounter
--- OUTSIDE RECORDS SUMMARY | 2024-10-20 17:32 | XMS_ITS | Encounter Summary ---
Author Organization [facility] [place] [address] Care Team Providers Care Psychiatric Nurse Practitioner Name Role Phone Dorita Zimmerman APRN Primary Care Provider [phone] Reason for Referral * Consultation (Routine) - Closed Specialty Diagnoses / Procedures Referred By Aicha beckwith Referred To Contact Dermatology Diagnoses Skin lesion of face Dorita Zimmerman APRN [address] [place] [address] [facility] Dermatology [address] [place] [address] Referral ID Status Reason Start Date Expiration Date V isits Requested Visits Authorized [id number] Closed Consult, Test & Treat PCP Updated and/or Approved 06/13/2022 06/13/2023 6 6 Encounter Details Date Type Department Care Team (Latest Contact Info) Description 06/13/2022 Transcribe Orders eDH Incoming Referrals [phone] Dorita Zimmerman APRN [address] [place], [place] [id number] Skin lesion of face Social History Tobacco Use Types Packs/Day Years [...] 11:15 AM EST Appointment Non-Invasive Cardiology Lab [place] [address] 11/10/2024 8:00 AM EST Office Visit Neurology at [place] [address] Clarisse Duke APRN [facility] [place] [place] [address] 11/15/2024 10:[address] Scan at [place] [address] Karli Morales MD [facility] [place] [place] [address] 11/15/2024 11:20 AM EST Office Visit Neurosurgery at [place] [address] Marvin Kimball, PA [facility] [place] [place] [address] 12/15/2024 4:40 PM EST TH Visit (TeleHealth) Cardiology at [place] [address] Duane Causey MD [facility] [place] [address] Scheduled Referrals Name Type Priority Associated Diagnoses Order Schedule Referral to Dermatology Outpatient Referral Routine Skin lesion of face Ordered: 06/13/2022 documented as of this encounter Visit Diagnoses Diagnosis Skin lesion of face Unspecified disorder of skin and subcutaneous tissue documented in this encounter Care Teams Psychiatric Nurse Practitioner Relationship Specialty Start Date End Date Dorita Zimmerman APRN PCP - General Family Medicine 04/27/22 09/08/24 documented as of this encounter
--- OUTSIDE RECORDS SUMMARY | 2024-10-20 17:32 | XMS_ITS | Encounter Summary ---
Author Organization [facility] [place] [address] Care Team Providers Care Catechist Name Role Phone Dorita Zimmerman APRN Primary Care Provider [phone] Encounter Details Date Type Department Care Team (Late st Contact Info) Description 08/21/2023 Ancillary Procedure Radiology Library at [facility] [place] [address] Dorita Zimmerman, RICHARD [address] [place] [place] [phone] Social History Tobacco Use Types Packs/Day Years [...] 11:15 AM EST Appointment Non-[place] [phone] 11/10/2024 8:00 AM EST Office [place] [phone] Clarisse Duke APRN [facility] [place] [address] 11/15/2024 10:[address] [place] [address] Karli Morales MD [facility] [place] [address] 11/15/2024 11:20 AM EST Office [place] [address] Marvin Kimball PA [facility] [place] [address] 12/15/2024 4:40 PM EST TH Visit (TeleHealth) Cardiology at [address] [address] Duane Causey MD [facility] [place] [address] documented as of this encounter Procedures Procedure Name Priority Date/Time Associated Diagnosis Comments FILM LIBRARY- STORAGE ONLY DXA IMAGES Routine 08/21/2023 12:00 AM EDT documented in this encounter Results * Film Library- Storage Only DXA Images (08/21/2023 12:00 AM EDT) Narrative [facility] - 11/18/2023 2:43 PM EST This exam is auto-finalizing. It's purpose is for storage only. Dorita Zimmerman APRN IMG FILM LIBRARY ORD ERABLES Performing Organization Address City/State/[facility] Co de Phone Number [place], [place] documented in this encounter Visit Diagnoses Not on filedocumented in this encounter Care Teams Catechist Relationship Specialty Start Date End Date Dorita Zimmerman APRN PCP - General Family Medicine 04/27/22 09/08/24 documented as of this encounter
--- OUTSIDE RECORDS SUMMARY | 2024-10-20 17:32 | XMS_ITS | Encounter Summary ---
Author Organization [facility] [place] [address] Care Team Providers Care Family Service Assistant Name Role Phone SohailDorita mccurdy RICHARD Primary Care Provider [phone] Encounter Details Date Type Department Care Team (Late st Contact Info) Description 11/14/2023 Orders [place] [phone] [facility] [address] Adrenal adenoma, unspecified laterality Social History Tobacco Use Types Packs/Day Years Used Date Smoking Tobacco: Former Cigarettes 2 30 1 973 - 2002 Smokeless Tobacco: Never Sex and Gender Information Value Date Recorded Sex Assigned at Not on file Gender Identity Not on file Sexual Orientation Not on file documented as of this encounter Plan of Treatment Upcoming Encounters Date Type Department Care Team (Late st Contact Info) Description 11/04/2024 11:15 AM EST Appointment Non-[place]vasive [place] [phone] 11/10/2024 8:00 AM EST [place] [address] Clarisse Duke SPANISH LECTURER [facility] [place] [address] 11/15/2024 10:[address] [place] [phone] Karli Morales MD [facility] [place] [address] 11/15/2024 11:20 AM EST [place] [address] Marvin Kimball PA [facility] [place] [place] [address] 12/15/2024 4:40 PM EST TH Visit (TeleHealth) Cardiology at [place] [phone] Duane Causey MD [facility] [place] [address] documented as of this encounter Visit Diagnoses Diagnosis Adrenal adenoma, unspecified laterality documented in this encounter Care Teams Family Service Assistant Relationship Specialty Start Date End Date Dorita Zimmerman, SPANISH LECTURER PCP - General Family Medicine 04/27/22 09/08/24 documented as of this encounter
--- OUTSIDE RECORDS SUMMARY | 2024-10-20 17:32 | XMS_ITS | Encounter Summary ---
Author Organization [facility] [place] [address] Care Team Providers Care Quarry Supervisor Open Pit Name Role Phone Dorita Zimmerman RICHARD Primary Care Provider [phone] Encounter Details Date Type Department Care Team (Latest Contact Info) Description 09/25/2022 Travel Social History Tobacco Use Types Packs/Day [...] 11:15 AM EST Appointment Non-[place] [phone] 11/10/2024 8:00 AM EST Office [place] [phone] Clarisse Duke APRN [facility] [place] [address] 11/15/2024 10:[address] [place] [address] Karli Morales MD [facility] [place] [address] 11/15/2024 11:20 AM EST Office [place] [phone] Marvin Kimball PA [facility] [place] [address] 12/15/2024 4:40 PM EST TH Visit (TeleHealth) Cardiology at [address] [phone] Duane Causey MD [facility] [place] [address] documented as of this encounter Visit Diagnoses Not on filedocumented in this encounter Care Teams Quarry Supervisor Open Pit Relationship Specialty Start Date End Date Dorita Zimmerman APRN PCP - General Family Medicine 04/27/22 09/08/24 documented as of this encounter
--- OUTSIDE RECORDS SUMMARY | 2024-10-20 17:32 | XMS_ITS | Encounter Summary ---
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 Pre-diabetes Next Available with Susan Cortes DO [address] [place] [address] [place] [address] [facility] [place] [address] [place] [phone] Referral ID Status Reason Start Date Expiration Date Visits Requested Visits Authorized [id number] Authorized Consult, Test & Treat PCP Updated and/or Approved 12/14/2023 12/13/2024 6 6 Encounter Details Date Type Department Care Team (Latest Contact Info) Description 12/14/2023 Transcribe Orders eDH Incoming Referrals [phone] Susan Rosario DO [address] [place] [address] [place] [address] Postmenopausal bleeding; Abnormal radiological findings in skin and subcutaneous tissue; Uterine leiomyoma, unspecified location; 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; Pre-diabetes Social History Tobacco Use Types Packs/Day Years [...] 11:15 AM EST Appointment Non-Invasive Cardiology Lab [place] [address] 11/10/2024 8:00 AM EST Office Visit Neurology at [place] [address] Clarisse Duke APRN [facility] [place] [address] 11/15/2024 10:[address] Scan at [place] [address] Karli Morales MD [facility] [place] [address] 11/15/2024 11:20 AM EST Office Visit Neurosurgery at [place] [address] Marvin Kimball PA [facility] [address] 12/15/2024 4:40 PM EST TH Visit (TeleHealth) Cardiology at [place] [address] Duane Causey MD [facility] [place] [address] Scheduled Referrals Name Type Priority Associated Diagnoses Orde r Schedule Referral to Gynecologic Oncology Outpatient Referral Routine Postmenopausal bleeding Abnormal radiological findings in skin and subcutaneous tissue Uterine leiomyoma, unspecified location 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 Pre-diabetes Ordered: 12/14/2023 documented as of this encounter Visit Diagnoses Diagnosis Postmenopausal bleeding Abnormal radiological findings in skin and subcutaneous tissue Other nonspecific (abnormal) findings on radiological and other examinations of body structure Uterine leiomyoma, unspecified location 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
--- OUTSIDE RECORDS SUMMARY | 2024-10-20 17:32 | XMS_ITS | Encounter Summary ---
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 Pre-diabetes Next Available with Susan Cortes DO [address] [place] [address] [place] [address] [facility] [address] [place] [address] Referral ID Status Reason Start Date Expiration Date Visits Requested Visits Authorized [id number] Authorized Consult, Test & Treat PCP Updated and/or Approved 12/14/2023 12/13/2024 6 6 Encounter Details Date Type Department Care Team (Late st Contact Info) Description 03/03/2024 12:00 PM EDT Office Visit [place] [address] Xiomara Burkett MD [facility] [place] [address] PMB (postmenopausal bleeding) (Primary Dx) Social History Tobacco Use Types Packs/Day Years Used Date Smoking Tobacco: Former Cigarettes 2 30 1 973 - 2002 Smokeless Tobacco: Never Alcohol Use Standard Drinks/Week Comments Never 0 (1 standard drink = 0.6 oz pur e alcohol) [facility] Utilities Answer Date Recorded In the past [...] in a jail (including now)? No 03/03/2024 IPV Inpatient Questions [...] Sign Reading Time Taken Comments Blood Pressure 129/57 03/03/2024 11:49 AM EDT Pulse 76 03/03/2024 11:49 AM EDT Temperature 37 ??C (98.6 ??F) 03/03/2024 11:49 AM EDT Respiratory Rate 18 03/03/2024 11:49 AM EDT Oxygen Saturation 96% 03/03/2024 11:49 AM EDT Inhaled Oxygen Concentration - - Weight 85 kg (187 lb 6.3 oz) 03/03/2024 11:49 AM EDT Height 154 cm (5' 0.63) 03/03/2024 11:49 AM EDT Body Mass Index 35.84 03/03/2024 11:49 AM EDT documented in this encounter Progress Notes * Minda Warren MD - 03/03/2024 12:00 PM EDT Division [place] [address] Gynecologic Oncology Clinic New Patient Visit Reason for visit: PMB and thickened endometrium, referred by Susan Rosario [address] [place] [address] Problem List There is no problem list on file for this patient. History of present illness: Lucero Arthur is a 74 y.o. postmenopausal female, who presents for persistent PMB and thickened endometrium on TVUS. Lucero was previously seen by Dr. Rosario at [facility] for PMB for 3 years. She notes [...] 5mg daily without resolution, but bleeding was filter press tender head. Follow up ultrasound in 08/2023 demonstrated a [...] change, change in bowel or bladder pattern. Gynecologic history: Menarche was approximately age 13 [...] adrenal nodule- currently undergoing work up with [facility] endocrinology 7. Hx of SCC of face [...] D. Performance status: Karnofsky Scale - 100 Medications Prior to Admission medications Medication Sig Start Date End Date Taking? Authorizing Provider lovastatin (Mevacor) 40 mg tablet Take 1 tablet by mouth nightly. 12/25/20 Yes PROVIDER, HISTORICAL cholecalciferol (Vitamin D3) 1,000 unit tablet Take 1,000 Units by mouth Daily. 12/10/20 Yes PROVIDER, HISTORICAL dilTIAZem CD (Cardizem CD) 300 mg CD (ER) 24 hr casule Take 1 capsule by mouth daily. 03/03/23 Yes PROVIDER, HISTORICAL meclizine (Antivert) 25 mg tablet Three times daily as needed. 04/05/22 Yes PROVIDER, HISTORICAL traMADoL (Ultram) 50 mg tablet Take 50 mg by mouth Every 6 hours as needed. 10/27/23 Yes PROVIDER, HISTORICAL apixaban (Eliquis) 5 mg Tablet 2 times daily. 02/26/17 Yes PROVIDER, HISTORICAL norethindrone (Aygestin) 5 mg tablet Take 5 mg by mouth Twice daily. 11/08/23 03/03/24 PROVIDER, HISTORICAL propranoloL (Inderal) 10 mg tablet Take 10 mg by mouth Twice daily. 10/23/23 03/03/24 PROVIDER, HISTORICAL simvastatin (ZOCOR) 20 mg tablet 03/03/08 03/03/24 NICOTINE TD 03/03/08 03/03/24 Allergies Allergies Allergen Reactions Glucose Nausea Only Oxycodone-Acetaminophen Other (See Comments) Other reaction(s): hallucinations Alendronate Sodium Contact Metal Agent Sulfa (Sulfonamide Antibiotics) Vital signs: BP 129/57 (Patient Position: Sitting) Pulse 76 Temp 37 ??C (98.6 ??F) (Temporal) Resp 18 Ht154 cm (5' 0.63) Wt 85 kg (187 lb 6.3 oz) SpO2 96% BMI 35.84 kg/m?? Physical examination General: She is alert and oriented, well-groomed and dressed, no obvious distress. She ambulates easily. HEENT: PERRLA, no scleral icterus or corneal arcus. Mucus membranes were moist. Lungs: Clear to auscultation bilaterally Heart: RRR, no murmur, rubs, gallop Abdomen:Soft, non tender, non distended. No palpable masses. No abdominal scars. Pelvic examination: Normal external genitalia. No lesions of the vulva, clitoris, urethral meatus, perineal body, or perianal area. Speculum exam demonstrates pale atropic mucosa. Midline multiparous cervix. No blood in vaginal vault. On bimanual examination, the uterus is mobile, non tender, no palpable masses. Rectovaginal exam: confirms the above. Extremities: No edema. Pathology 12/26/2022 Final Diagnosis A. ENDOMETRIUM, BIOPSY: - Scant atrophic endometrium. 04/30/2023 Final Diagnosis A. ENDOCERVIX, CURETTAGE: - Benign endocervical and squamous mucosa. B. ENDOMETRIUM, CURETTAGE: - Polypoid fragments of inactive to weakly secretory endometrium with pseudodecidualized stroma consistent with exogenous hormone effect. - Features suggestive of endometrial polyp. - Benign endocervical mucosa. Imaging TVUS 09/05/2023 -Abnormally thickened and heterogeneous, nearly 2cm. -Two areas of low attenuating that are questioned in the uterus, likely artifactual TVUS 12/08/2023 -Anterior fibroid measuring 3.3 x 2.8 x 2.4 and posterior fibroid near fundus measuring 3 x 2.4 x 3.3 cm -EMS 24mm- appears heterogeneous Impression/plan: Lucero Arthur is a 74 y.o. postmenopausal woman with PMB despite progestin therapy and benign biopsies of uterine lining. Because of this, we discussed it is likely her PMB is 2/2 her atrophic lining of her uterus and is affected by Eliquis. She would like to get her bleeding to stop has it has been persisent for 3 years. I recommended she undergo a TLH/BSO. We reviewed risksof surgery including bleeding, infection, injury to surrounding organs (bladder, bowel, ureter, nerves, vessels), possible laparotomy, possible lymphedema, blood clot in the legs or lung, and pneumonia. We also reviewed course of typical recovery and plan for follow-up 2 weeks post-op. Questions ans wered and consents signed. 1. Preop/TLH, BSO - CBC, BMP, t+s - Stop blood thinners 3 days prior to surgery; discuss with fabrication operator if need bridge anticoagulation prior to surgery - Discussed guidelines for post-operative recovery. 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 Madelaine Warren MD PGY1 OBGYN 03/03/24 I have seen and examined the patient and reviewed and edited the resident's above history and I agree with the details as written. The assessment and plan were formulated in discussion with me and I agree with them as documented. Xiomara Burkett MD * Evelyn Coley LNA - 03/03/2024 12:00 PM EDT Examination chaperoned by VICKI Medrano. documented in this encounter Plan of Treatment Upcoming Encounters Date Type Department Care Team (Late st Contact Info) Description 11/04/2024 11:15 AM EST Appointment Non-Invasive Cardiology Lab [place] [phone] 11/10/2024 8:00 AM EST Office Visit Neurology at [address] Clarisse Duke APRN [facility] [place] [place] [address] 11/15/2024 10:[address] [place] [address] Karli Morales MD [facility] [place] [place] [address] 11/15/2024 11:20 AM EST Office [place] [address] Marvin Kimball PA [facility] [place] [address] 12/15/2024 4:40 PM EST TH Visit (TeleHealth) Cardiology at [address] Duane Causey MD [facility] [place] [address] documented as of this encounter Results * Type and Screen Future Surgery, [facility] SAME DAY PROGRAM ONLY) (03/03/2024 2:54 PM EDT) ABORH Type O POSITIVE [facility] Patient BB History Not Found [facility] Expires at 5450 on: 04/17/2024 [facility] Ab Screen Interp Negative [facility] Blood 03/03/2024 2:54 PM EDT 03/03/2024 2:54 PM EDT Narrative Resulting Agency Comment Spec In Lab Xiomara Burkett MD BLOOD BANK LAB ORD ERABLES [facility] [place] [address] * (ABNORMAL) Comprehensive metabolic panel (non-fasting) (03/03/2024 2:54 PM EDT) Glucose 86 65 - 199 mg/dL [facility] Comment:Diabetes: >=200 mg/d L plus symptoms Blood Urea Nitrogen 16 8 - 18 mg/dL [facility] Creatinine 0.84 0.70 - 1.20 mg/dL [facility] Sodium 141 135 - 145 mmol/L [facility] Potassium 4.3 3.5 - 5.0 mmol/L [facility] Comment: Please note: ??Patients with WBC >100,000 may have falsely elevated Potassium levels. ??For accurate Potassium quantification in these patients send serum separator tube (gold top) for subsequent determinations. ??Contact the Clinical Chemistry Laboratory if there are any questions. Chloride 104 98 - 107 mmol/L [facility] Carbon Dioxide 26 22 - 31 mmol/L [facility] Anion Gap 11 5 - 15 mmol/L [facility] Calcium 9.9 8.5 - 10.5 mg/dL [facility] Protein, Total 7.0 6.1 - 8.0 g/dL [facility] Albumin 4.2 3.2 - 5.2 g/dL [facility] Aspartate Aminotransferase 23 0 - 30 unit/L [facility] Alanine Aminotransferase 34(H) 0 - 30 unit/L [facility] Alkaline Phosphatase 103 35 - 105 unit/L [facility] Bilirubin, Total 0.3 0.2 - 1.3 mg/dL [facility] Est Glomerular Filtration Rate 74 >=60 mL/min/1. 73 m?? [facility] Comment: This patient's estimated GFR [...] Lab Xiomara Burkett MD CHEMISTRY ORDERABL ES [facility] [place] [address] documented in this encounter Visit Diagnoses Diagnosis PMB (postmenopausal bleeding)- Primary Postmenopausal bleeding documented in this encounter Care Teams Intern Product Marketing Manager Relationship Specialty Start Date End Date Dorita Zimmerman APRN PCP - General Family Medicine 04/27/22 09/08/24 documented as of this encounter
--- OUTSIDE RECORDS SUMMARY | 2024-10-20 17:32 | XMS_ITS | Encounter Summary ---
Author Organization [facility] [place] [address] Care Team Providers Care Head Porter Baggage Name Role Phone Dorita Zimmerman TRAINER Primary Care Provider [phone] Reason for Visit * Consultation (Routine) - Closed Specialty Diagnoses / Procedures Referred By Aicha t Referred To Contact Endocrinology Diagnoses Adrenal adenoma, unspecified laterality Osteoporosis, unspecified osteoporosis type, unspecified pathological fracture presence Dorita Zimmerman, RICHARD [address] [place] [address] [facility] [place] Endocrinology [address] [place] [phone] Referral ID Status Reason Start Date Expiration Date V isits Requested Visits Authorized [id number] Closed Consult, Test & Treat PCP Updated and/or Approved 08/26/2023 08/25/2024 12 12 Encounter Details Date Type Department Care Team (Late st Contact Info) Description 11/14/2023 9:00 AM EST Office [place] [phone] Elgin Briceno, [facility] [place] [address] Osteoporosis, unspecified osteoporosis type, unspecified pathological fracture presence; Localized osteoporosis ([place]equesne); Adrenal adenoma, unspecified laterality; Postmenopausal bleeding Social History Tobacco Use Types Packs/Day Years Used Date Smoking Tobacco: Former Cigarettes 2 30 1 973 - 2002 Smokeless Tobacco: Never Tobacco Cessation:Counseling Given: Not Answered Sex and Gender Information Value Date Recorded Sex Assigned at Not on file Gender Identity Not on file Sexual Orientation Not on file documented as of this encounter Last Filed Vital Signs Vital Sign Reading Time Taken Comments Blood Pressure 136/64 11/14/2023 8:47 AM EST Pulse 61 11/14/2023 8:47 AM EST Temperature 37.1 ??C (98.8 ??F) 11/14/2023 8:47 AM ES T Respiratory Rate 20 11/14/2023 8:47 AM EST Oxygen Saturation 96% 11/14/2023 8:47 AM EST Inhaled Oxygen Concentration - - Weight 87.2 kg (192 lb 3.2 oz) 11/14/2023 8:47 A M EST Height 152.4 cm (5') 11/14/2023 8:47 AM EST Body Mass Index 37.54 11/14/2023 8:47 AM EST documented in this encounter Progress Notes * Elgin Briceno, DO - 11/14/2023 9:00 AM EST Images from the original note were not included. Date of Visit: 11/12/2023 Patient Name: Lucero Arthur : 1950 PCP: Dorita Zimmerman APRN Reason for Referral Lucero Arthur was seen in consultation in the Endocrine clinic at the request of Dr. Dorita Zimmerman APRN For the evaluation of osteoporosis. Patient's previous record as are the lab results are reviewed. HPI Lucero Arthur is a very pleasant 73 y.o. female with a PMH significant for prediabetes, adrenalnodule, afib, and osteoporosis is here for evaluation of Osteoporosis and adrenal nodule. Patient appears to have first been diagnosed with OP sometime around 2009 (no report, with repeat DXA performed in 2010 (lumbar spine -3.2, total hip -1.5, forearm -2.3) and 2013 (t-score -2.9, totalhip -1.7, fem neck -2.1). It appears she was not started on any medication at that time. She had a repeat DXA performed in December of 2018 when she was found to have a T-score of -3.0 at the lumbar spine and -1.7 at the hip. It appears at some time, she was started on alendronate for about 1 week.Patient states she developed significant muscle aches and n/v after taking the medication and nevertook it again. She takes Calcium (unknown amount) and Vitamin D supplements (1000 IU). She denies fr agility fractures (she has had traumatic fractures of her left arm) and chronic steroid use. There are no symptoms suggestive of hyperthyroidism, hyperparathyroidism, hypogonadism, rheumatoid arthritis, Celiac disease or any other malabsorption syndrome, hypercortisolism, premature menopause, and estrogen deficiency. She went through menopause around 47 YO. She is not any medications that can cause OP (GC, Aromatase inhibitors (Breast Ca drugs), Androgen deprivation therapy (Prostate Ca), PPI, excess thyroid hormone replacement, Anti seizure medication (Carbamazepine, Phenobarbital, Phenytoin). She does note the major change that she has made since her 2019 DXA is improving exercise and dietary changes (increasing calcium and vitamin D). In regards to her adrenal adenoma, it appears this was first fully characterized on CT chest performed for a separate purpose which demonstrated a 2.8cm adrenal nodule on the L in 02/2021. Dedicated CT a/p from 03/05/22 demonstrated 2.3 x 2.6cm L adrenal nodule unchanged from imaging one year prior. At that time, patient had hormonal testing performed which demonstrated aldosterone level of 4.1, plasma renin activity of 1.6, and DST performed demonstrated am cortisol of 2.0 (no dex level). Patient has been monitored for her adrenal nodule since that time. She does have prediabetes as aforementioned, osteoporosis as aforementioned, no history of HTN. Repeat CT a/p 07/2023 with adrenal protocol d emonstrated a 2.5 x 2.5cm L adrenal nodule -6HU. Patient at the end of our visit also endorsed to me that she had started getting her periods again over the last year. She states this started after she had surgical resection of skin cancer on her face. She started to develop vaginal bleeding and developed hair loss as well. She was placed on northenidrone by her lemon picker which has helped with the bleeding, but she gets recurrent bleeding whenever she is off of it. She has had two tumors removed from her uterus, her lemon picker reportedly told the patient she needed a hysterectomy. 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 Skin: normal in texture and temperature, no abnormal striae or ecchymosis, no acanthosis nigricans around the nape of the neck HEENT: NC/AT, EOMI Neck: supple, no visible goiter Abdomen - soft, non-tender, no violaceous striae Neuro: AAOx3, non-focal Psych: normal mood and affect Labs Cortisol after DST: 2.0 (8:30am), 04/2022 Gurvinder: 4.1 (04/2022) PRA: 1.6 (04/2022) Last DXA scan (08/21/23): Lumbar spine T-score = -2.3 Femoral neck T-score = -2.3 Left radius T score: n/a Total Hip T score: -1.6 PMH: There is no problem list on file for this patient. Outpatient Meds: Current Outpatient Medications on File Prior to Visit Medication Sig Dispense Refill apixaban (Eliquis) 5 mg Tablet Every 12 hours. simvastatin (ZOCOR) 20 mg tablet NICOTINE TD No current facility-administered medications on file prior to visit. Allergy: Allergies Allergen Reactions Glucose Nausea Only Oxycodone-Acetaminophen Other (See Comments) Other reaction(s): hallucinations Alendronate Sodium Contact Metal Agent Sulfa (Sulfonamide Antibiotics) Social History Socioeconomic History Marital status: Spouse name: Not on file Number of children: Not on file Years of education: Not on file Highest education level: Not on file Occupational History Not on file Tobacco Use Smoking status: Not on file Smokeless tobacco: Not on file Substance and Sexual Activity Alcohol use: Not on file Drug use: Not on file Sexual activity: Not on file Other Topics Concern Not on file Social History Narrative Not on file Social Determinants of Health Financial Resource Strain: Not on file Food Insecurity: Not on file Transportation Needs: Not on file Physical Activity: Not on file Intimate Partner Violence: Not on file Housing Stability: Not on file No family history on file. Assessment and Plan Lucero Arthur is a 73 y.o. female diagnosed with osteoporosis on DXA scan on 2010. Most recent FRAX analysis, patient's 10-yr probability for major osteoporotic fracture was 12% and hip fracture 2.7%. # Osteoporosis Patient carries previous diagnosis of osteoporosis based upon T-score of -3.2 initially in 2010. Itappears that patient has not really received any treatment since that time, and repeat DXA scans upuntil 2018 appear to have not demonstrated much improvement. Her repeat DXA scan in 2022, however, d emonstrated improvement both in the lumbar spine and femoral neck. This has been attributed to improvements in exercise and nutrition, and patient is now in the osteopenic range. This is somewhat perplexing, as increases this great are not typically seen in patients to this degree with just diet and exercise changes outside of the concurrent incidence of osteomalacia. I am concerned about the possibility that the scans 4 years apart are not entirely accurate, and may even possibly be confoundedby the presence of osteoarthritis artificially making her DXA look better. This is less likely to occur at the femoral neck but can occur at the total hip, which also improved. I will request the images to review ourselves to determine if these changes are legitimate. If not, I would recommend she be started on medical treatment. She stated she would be amenable to trying weekly risendronate, as she is concerned about using reclast given her reaction to alendronate in the past (n/v, fatigue, muscle aches). We will also perform secondary evaluation of osteoporosis. Lifestyle measures include: 1. Adequate calcium and vitamin D. In general, 1200 mg of elemental calcium daily, and 800 international units of vitamin D daily is recommended either through diet or through supplement. . 2. Weight bearing exercise as tolerated. 3. Smoking cessation if smoker. 4. Counseling on fall prevention, and 5. Avoidance of heavy alcohol use. Medication: Risendronate Blood work: PTH, TSH, 25 OH vitamin D, ca, albumin, cr, 24hr calcium (urine test sent to [facility]) Repeat Imaging: Will obtain DEXA scan in 2 years to monitor progression of disease and to check theefficacy of medication. Follow up in 6-12 months #Adrenal Adenoma Patient presents with 2.5cm adrenal adenoma stable over the course of 2 years with low attenuation on CT adrenal study. Given HU < 10 and stability over the course of 2 years this likely represents a lipid rich adenoma and does not need further imaging for evaluation. The nodule did initially have hormonal evaluation which was negative for hyperaldosteronism, but the 1mg DST did demonstrate addison cortisol of 2.0 (no concurrent Dex level). I do think this DST needs to be repeated with a dex level, as it is possible patient has MACS. I discussed with her that if she does have MACS, the options would be surgical treatment vs observation and treatment of medical comorbidites, of which she pre ferred the latter. Given low attenuation and lack of associated symptoms I do not think it needs stacie checked for metanephrines. Plan - repeat DST with Dex level - likely continued observation of MACS - repeat DST yearly #Abnormal Uterine Bleeding Patient presents with 1 year history of AUB after going through menopause around [age]. She is on norethindrone which has helped with her symptoms, but I do not think she knows the cause. It is certainly abnormal to have bleeding of this nature> 20 years post menopause. I do think it is warranted to check estradiol levels as well as FSH/LH (may be somewhat effected by progesterone medication) t o see if there is any evidence of inappropriate hyperestrogenism, and if so further imaging may be needed. If not, patient will need to follow back with [employer] for further evaluation and management. Plan - check estradiol, FSH, LH Oral Bisphosphonates (Alendronate or Risedronate) Alendronate (Fosamax): Dose: Treatment: Oral: 70 mg once weekly or 10 mg once daily. Prevention: Oral: 35 mg once weekly or 5 mg once daily. Administration: Administer first thing in the morning and at least 30 minutes before the first food, beverage (except plain water), or other medication(s) of the day. Do not take with mineral water or with other beverages. Stay upright (not to lie down) for at least 30 minutes and until after firstfood of the day (to reduce esophageal irritation). Oral solution: Administer oral solution, followed with at least 2 oz of plain water. Tablet (Fosamax): Must be taken with 6 to 8 oz of plain water. The tablet should be swallowed whole; do not chew or suck. Calcium and other supplements/medications containing polyvalent cations (eg, aluminum, iron, magnesium, zinc) can cause bisphosphonates to be insufficiently absorbed; accordingly, wait >=30 to 60 minutes after taking alendronate to take calcium or other medications and supplements that interferewith the absorption of alendronate CrCl <35 mL/minute: Use not recommended. Missed doses (once weekly): If a once-weekly dose is missed, it should be given the next morning after remembered; then return to the original scheduled day of the week on the once-weekly schedule; however, do not give 2 doses on the same day. Common side effects: Transient, mild hypocalcemia, transient mild hypophosphatemia, abdominal pain,GERD, musculoskeletal pain, rarely Osteonecrosis of jaw and atypical femur fracture. IV Bisphosphonate (Reclast/Zoledronic acid) Indications: 1. Esophageal disorders (achalasia, scleroderma involving the esophagus, esophageal strictures, varices). 2. Gastrointestinal intolerance to oral bisphosphonates, 3. History of Tammy-en-Y gastric bypass, or 4. Inability to follow the dosing requirements of oral bisphosphonates, 5. Inability to sit upright for 30 to 60 minutes and/or to swallow a pill. Zoledronic acid (Reclast) Mechanism of Action: Zoledronic acid is a bisphosphonate which inhibits bone resorption via actions on osteoclasts or onosteoclast precursors; it inhibits osteoclastic activity and skeletal calcium release induced by tumors. Decreases serum calcium and phosphorus, and increases their elimination. In osteoporosis, zoledronic acid inhibits osteoclast-mediated resorption, therefore reducing bone turnover. Dosing: Reclast, Aclasta [Kittitian product]): 5 mg once a year. Note: The optimal duration of treatment has not been determined. In postmenopausal women with low fracture risk, consider a drug holiday after 3 years of IV bisphosphonate use. In postmenopausal women who remain at high fracture risk consider extending treatment for up to 6 years. Contraindications: Hypersensitivity to zoledronic acid or any component of the formulation; hypocalcemia (Reclast only); CrCl <35 mL/minute and in those with evidence of acute renal impairment (Reclast only). Common adverse effects: Hypertension, fever, headache, chills, Fatigue, hypocalcemia, nausea, abdominal pain, infusion related reaction, joint pain, muscle pain, back pain, flu like symptoms. Rare SE include Osteonecrosis of jaw, atypical femur fractures, acute renal failure, anaphylaxis. Patients intolerant or cannot receive Bisphosphonate: For patients at very high risk of fracture (eg, T-score of <=-3.5, T-score of <=-2.5 plus a fragility fracture, severe or multiple vertebral fractures), we suggest an anabolic agent: Teriparatide, Abaloparatide and romosozumab are alternatives. For patients at high risk for fracture (eg, osteoporosis by BMD in the absence of fragility fracture, T-score >-2.5 with a fragility fracture, single vertebral fracture), we suggest denosumab rather than an anabolic agent. Because of emerging concerns about an increased risk of vertebral fracture after discontinuation of denosumab, the need for indefinite administration of denosumab should be discussed with patients prior to its initiation. For patients with no history of fragility fractures, raloxifene is a reasonable alternative, particularly in women at high risk for breast cancer. Teriparatide (Forteo): Mechanism of action; Teriparatide is a recombinant formulation of endogenous parathyroid hormone (PTH), containing a 31-trghz-oxlm sequence which is identical to the N-terminal portion of this hormone. The pharmacologic activity of teriparatide, which is similar to the physiologic activity of PTH, includes stimulating osteoblastfunction, increasing gastrointestinal calcium absorption, and increasing renal tubular reabsorptionof calcium. Treatment with teriparatide results in increased bone mineral density, bone mass, and strength. In postmenopausal women, teriparatide has been shown to decrease osteoporosis-related fractures. Dose: 20 mcg once daily SQ for up to 2 years; following discontinuation of teriparatide initiate antiresorptive therapy to prevent bone density decline and loss of fracture efficacy. Administration: Initial administration should occur under circumstances in which the patient may sit or lie down, in the event of orthostasis. Inject into the thigh or abdominal wall. Administer without regard to meals or time of the day. May administer dose immediately following removal from the refrigerator. Each teriparatide delivery device can be used for up to 28 days after the first injection. Common side effects include: Hypercalcemia (transient increases noted 4 to 6 hours post-dose), transient orthostatic hypotension, dizziness, headache, nausea, gastritis, arthralgia, weakness, rhinitis, pharyngitis. Serious adverse effect found in rats was osteosarcoma of bone Denosumab: Monoclonal antibody to the receptor activator of nuclear factor kappa-B ligand (RANKL), an osteoclast differentiating factor. It inhibits osteoclast formation, decreases bone resorption, increases bone mineral density (BMD), and reduces the risk of fracture. Discontinuation of denosumab results in bone loss and increased vertebral fracture risk within a relatively short time Dose: Denosumab (60 mg) is administered by subcutaneous injection once every six months. It may be administered in the upper arm, thigh, or the abdomen. It is available in a single-use, prefilled syringe or a single-use vial. Denosumab is not renally excreted, and therefore, dose adjustments for chronic kidney disease are not necessary. Overall, the most common adverse effects (>5 percent) were back, extremity, and musculoskeletal pain; hypercholesterolemia; and cystitis. In postmarketing reports, severe bone, joint, and/or muscle pain has been reported from one day to several months after denosumab administration Hypocalcemia -- Denosumab should not be given to patients with preexisting hypocalcemia until it iscorrected. In addition, patients with conditions predisposing to hypocalcemia (ie, chronic kidney disease and creatinine clearance <30 mL/min) should be monitored for hypocalcemia Romosozumab: Romosozumab inhibits sclerostin, a regulatory factor in bone metabolism that inhibits Wnt/Beta-catenin signaling pathway regulating bone growth, increases bone formation and to a lesser extent, decreases bone resorption. It is given as monthly injections and has been approved for 12 months. Bone mineral density (BMD) returns to baseline within 12 months following discontinuation and therefore, patient should treated with antiresorptive therapy (eg, bisphosphonate or denosumab) We have reviewed our plan as outlined above with the patient and patient verbalized understanding and is agreeable with this management. All questions were answered and most of the time was spent on counseling about bone conditions, medications and Ca/D supplement including pros and cons of starting medication, the diagnostic and therapeutic decisions, and coordination of care. Thank you for allowing me to participate in the care of this very pleasant patient. D/W Dr. Vinny Briceno PGY5, Endocrinology Fellow Pager: [phone] * Siva Casillas MD - 11/14/2023 9:00 AM EST Patient seen and case discussed with Dr. Briceno. I agree with the assessment and plan as documented and was involved in all medical decision making with the following addendum: Medically complicated pleasant patient with osteoporosis, adrenal nodule and AUB. Will plan to treat with monthly Actonel for osteoporosis, given than she defers IV Reclast. Agree with evaluation for hypercortisolism for adrenal nodule. Unusual that she has AUB - agree with checking labs as described, although she is on aprogestin which will suppress FSH/LH levels. Siva Casillas MD Practice Physicianonline merchandiser Endocrinology Section [facility] documented in this encounter Miscellaneous Notes * Addendum Note - Siva Casillas MD - 11/14/2023 9:00 AM ESTAddended by: SIVA CASILLAS on: 11/25/2023 12:42 PM Modules accepted: Level of Service documented in this encounter Plan of Treatment Upcoming Encounters Date Type Department Care Team (Late st Contact Info) Description 11/04/2024 11:15 AM EST Appointment Non-[place] [phone] 11/10/2024 8:00 AM EST Office Visit Neurology at [place] [phone] Clarisse Duke APRN [facility] [place] [address] 11/15/2024 10:[address] [place] [phone] Karli Morales MD [facility] [place] [address] 11/15/2024 11:20 AM EST [place] [phone] Marvin Kimball PA [facility] [place] [address] 12/15/2024 4:40 PM EST TH Visit (TeleHealth) Cardiology at [place] [phone] Duane Causey MD [facility] [place] [address] documented as of this encounter Procedures Procedure Name Priority Date/Time Associated Diagnosis Comments TSH CASCADE Routine 11/14/2023 10:29 AM EST Osteoporosis, unspecified osteoporosis type, unspecified pathological fracture presence Localized osteoporosis ([place]equ[place]ne) MISCELLANEOUS LAB REQUEST Routine 11/14/2023 10:29 AM EST PTH Routine 11/14/2023 10:29 AM EST Osteoporosis, unspecified osteoporosis type, unspecified pathological fracture presence CREATININE Routine 11/14/2023 10:29 AM EST Osteoporosis, unspecified osteoporosis type, unspecified pathological fracture presence VITAMIN D, 25-HYDROXY Routine 11/14/2023 10:29 AM EST Osteoporosis, unspecified osteoporosis type, unspecified pathological fracture presence ESTRADIOL Routine 11/14/2023 10:29 AM EST Osteoporosis, unspecified osteoporosis type, unspecified pathological fracture presence LUTEINIZING HORMONE Routine 11/14/2023 1 0:29 AM EST Postmenopausal bleeding FOLLICLE STIMULATING HORMONE Routine 11/14/2023 10:29 AM EST Postmenopausal bleeding CORTISOL Routine 11/14/2023 10:29 AM EST CALCIUM Routine 11/14/2023 10:29 AM EST Osteoporosis, unspecified osteoporosis type, unspecified pathological fracture presence ALBUMIN LEVEL Routine 11/14/2023 10:29 AM EST Osteoporosis, unspecified osteoporosis type, unspecified pathological fracture presence documented in this encounter Results * Miscellaneous Lab request (11/14/2023 10:29 AM EST) Label Request received in lab. [facility] Blood No Charge / Unknown 11/14/2023 10:29 AM EST 11/14/2023 10:38 AM EST Narrative Resulting Agency Comment Spec In Lab Elgin Briceno DO LAB SEND OUT ORDERAB LES Performing Organization Address City/[facility] Co de Phone Number [facility] [place] [address] * Cortisol (11/14/2023 10:29 AM EST) Cortisol 10.0 mcg/dL [facility] Comment: Reference ranges: ??AM (6-10am): ??4.8-19.5 mcg/dL ??PM (4-8pm) : ??2.5-11.9 mcg/dL Blood Venous Draw / Unknown 11/14/2023 10:29 AM EST 11/14/2023 10:38 AM EST Narrative Resulting Agency Comment Spec In Lab Elgin Briceno DO CHEMISTRY ORDERABLES Performing Organization Address City/[facility] Co de Phone Number [facility] [place] [address] * Luteinizing Hormone (11/14/2023 10:29 AM EST) Luteinizing Hormone 0.3 mlU/ML [facility] Comment: Reference Ranges Male: ? 1.7-8.6 mIU/mL Female ?? Follicular: ?2.4-12.6 mIU/mL ?? Ovulation: ? 14.0-95.6 mIU/mL ?? Luteal: ?1.0-11.4 mIU/mL ?? Postmenopausal: ?7.7-58.5 mIU/mL Blood 11/14/2023 10:2 9 AM EST 11/14/2023 10:38 AM EST Narrative Resulting Agency Comment Spec In Lab Siva Casillas MD CHEMISTRY ORDERABLES Performing Organization Address [facility] Co de Phone Number [facility] [place] [address] * Follicle Stimulating Hormone (11/14/2023 10:29 AM EST) Follicle Stimulating Hormone 1.6 mlU/ML [facility] Comment: Reference Ranges Male: ? 1.5-12.4 mIU/mL Female ?? Follicular: ?3.5-12.5 mIU/mL ?? Ovulation: ? 4.7-21.5 mIU/mL ?? Luteal: ?1.7-7.7 mIU/mL ?? Postmenopausal: ?25.8-134.8 mIU/mL Blood 11/14/2023 10:2 9 AM EST 11/14/2023 10:38 AM EST Narrative Resulting Agency Comment Spec In Lab Siva Casillas MD CHEMISTRY ORDERABLES Performing Organization Address [facility] Co de Phone Number [facility] [place] [address] * Estradiol (11/14/2023 10:29 AM EST) Estradiol 16 pg/mL [facility] Comment: Reference ranges: Males: Adult: ? 11 to 43 pg/mL Females: Non- females: ?Follicular: ??12-233 pg/mL ?Ovulation: ?? 41-398 pg/mL ?Luteal: ?22-341 pg/mL ?Postmenopausal: ?? <5 - 138 pg/mL females: ?1st trimester: ??154-3243 pg/mL ?2nd trimester: ??1561-72047 pg/mL ?3rd trimester: ??8525- >60348 pg/mL Blood 11/14/2023 10:2 9 AM EST 11/14/2023 10:38 AM EST Narrative Resulting Agency Comment Spec In Lab Siva Casillas MD CHEMISTRY ORDERABLES Performing Organization Address [facility] de Phone Number [facility] [place] [address] * TSH [place] (11/14/2023 10:29 AM EST) Thyroid Stimulating Hormone 1.41 0.27 - 4.20 mcIU/mL [facility] Comment: Reference Interval (mcIU/mL): Females: ??First Trimester: 0.23-3.88 ??Second Trimester: 0.22-3.90 ??Third Trimester: 0.44-4.66 Blood 11/14/2023 10:2 9 AM EST 11/14/2023 10:38 AM EST Narrative Resulting Agency Comment Spec In Lab Siva Casillas MD CHEMISTRY ORDERABLES Performing Organization Address [facility] de Phone Number [facility] [place] [address] * PTH (11/14/2023 10:29 AM EST) Parathyroid Hormone 28 15 - 65 pg/mL [facility] Blood 11/14/2023 10:2 9 AM EST 11/14/2023 10:38 AM EST Narrative Resulting Agency Comment Spec In Lab Siva Casillas MD CHEMISTRY ORDERABLES [facility] [place] [address] * Creatinine (11/14/2023 10:29 AM EST) Creatinine 0.86 0.70 - 1.20 mg/dL [facility] Est Glomerular Filtration Rate 72 >=60 mL/min/1. 73 m?? [facility] Comment: This patient's estimated [...] and symptoms in addition to eGFR. Blood 11/14/2023 10:2 9 AM EST 11/14/2023 10:38 AM EST Narrative Resulting Agency Comment Spec In Lab Siva Casillas MD CHEMISTRY ORDERABLES Performing Organization Address City/[facility]/ZIP Co de Phone Number [facility] [place] [address] * Albumin Level (11/14/2023 10:29 AM EST) Albumin 4.3 3.2 - 5.2 g/dL [facility] Blood 11/14/2023 10:2 9 AM EST 11/14/2023 10:38 AM EST Narrative Resulting Agency Comment Spec In Lab Siva Casillas MD CHEMISTRY ORDERABLES [facility] [place] [address] * Vitamin D, 25-Hydroxy (11/14/2023 10:29 AM EST) Vitamin D Total 25 OH 38 21 - 100 ng/mL [facility] Vit D Interp Sufficient [facility] Blood 11/14/2023 10:2 9 AM EST 11/14/2023 10:38 AM EST Narrative Resulting Agency Comment Spec In Lab Siva Casillas MD CHEMISTRY ORDERABLES Performing Organization Address [facility] Co de Phone Number [facility] [place] [address] * Calcium (11/14/2023 10:29 AM EST) Calcium 9.7 8.5 - 10.5 mg/dL [facility] Blood 11/14/2023 10:2 9 AM EST 11/14/2023 10:38 AM EST Narrative Resulting Agency Comment Spec In Lab Siva Casillas MD CHEMISTRY ORDERABLES Performing Organization Address [facility] Co de Phone Number [facility] [place] [address] documented in this encounter Visit Diagnoses Diagnosis Osteoporosis, unspecified osteoporosis type, unspecified pathological fracture presence Localized osteoporosis ([place]) Adrenal adenoma, unspecified laterality Postmenopausal bleeding documented in this encounter Care Teams Head Porter Baggage Relationship Specialty Start Date End Date Dorita Zimmerman, RICHARD PCP - General Family Medicine 04/27/22 09/08/24 documented as of this encounter
--- OUTSIDE RECORDS SUMMARY | 2024-10-20 17:32 | XMS_ITS | Encounter Summary ---
[place] [address] Care Team Providers Care Rollway Man Name Role Phone ErasmoDorita Yajaira RAMOS Primary Care Provider [phone] Encounter Details Date Type Department Care Team (Late st Contact Info) Description 09/18/2022 Telephone Dermatology at [facility] [address] [place] [phone] Eneida Mccoy CMA Social History Tobacco Use Types Packs/Day Years Used Date Smoking Tobacco: Never Assessed Sex and Gender Information Value Date Recorded Sex Assigned at Not on file Gender Identity Not on file Sexual Orientation Not on file documented as of this encounter Miscellaneous Notes * Telephone Encounter - Eneida Mccoy CMA - 09/18/2022 9:13 AM EDT Mohs consultation and preoperative note (H&P) Patient Name: Lucero Arthur Age: 72 y.o. Date of : 1950 Today's Date: 09/18/2022 REFERRING PROVIDER: No ref. provider found CC: Mohs micrographic surgery for treatment of a cutaneous tumor HPI: Lucero Arthur is a 72 y.o. 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 The dermatologic preoperative information sheet was reviewed with pertinent positive and negative as below. DERMATOLOGIC PRE-OPERATIVE EVALUATION AND REVIEW OF SYSTEMS History of Mohs surgery? no If yes, have you ever had Mohs surgery with Dr. Copeland? no Pacemaker/Defibrillator? no Joint replacement or other implantable devices (e.g. Cochlear implant)? If yes then when? no Do you take a blood thinner? Yes Eliquis (apixaban) History of organ transplant? no History of artificial valve or stroke? no History of liver disease or bleeding disorder? no Do you have any medical problems that may affect your upcoming surgery? no Do you have any concerns regarding your upcoming surgery? no We ask patients to discontinue Fish oil/Multivitamin/Vit E/?? supplements and natural medicines not prescribed by a physician 1 week prior to surgery. SOCIAL HISTORY: Makes Own Decisions Yes Hearing aid or other devices: No Relevant travel history or future plans: none Tobacco use (amount per day, type of tobacco): no Do you have any physical limitations that may affect your surgery?: Back issues ALLERGIES: Allergies reviewed MEDICATIONS: Patient states she will bring an updated list of medications to appointment. Patient has a full skin exam with Dr. Rodarte same day. documented in this encounter Plan of Treatment Upcoming Encounters Date Type Department Care Team (Late st Contact Info) Description 11/04/2024 11:15 AM EST Appointment [place] [address] 11/10/2024 8:00 AM EST [place] [address] Clarisse Duke APRN [facility] [place] [address] 11/15/2024 10:[address] Scan at [place] [phone] Karli Morales MD [facility] [place] [address] 11/15/2024 11:20 AM EST Office Visit Neurosurgery at [place] [phone] Marvin Kimball PA [facility] [place] [address] 12/15/2024 4:40 PM EST TH Visit (TeleHealth) Cardiology at [address] [phone] Duane Causey MD [facility] [place] [address] documented as of this encounter Visit Diagnoses Not on filedocumented in this encounter Care Teams Rollway Man Relationship Specialty Start Date End Date Dorita Zimmerman APRN PCP - General Family Medicine 04/27/22 09/08/24 documented as of this encounter
--- OUTSIDE RECORDS SUMMARY | 2024-10-20 17:32 | XMS_ITS | Encounter Summary ---
Author Organization [facility] Address [facility] [place] [address] Care Team Providers Care Gastroenterology Technician Name Role Phone Dorita Zimmerman RICHARD Primary Care Provider [phone] Reason for Visit * Consultation (Routine) - Closed Specialty Diagnoses / Procedures Referred By Contxiang t Referred To Contact Dermatology Diagnoses Squamous cell carcinoma of cheek Rosalinda Rodarte MD [facility] DR [facility] [address] [facility] [address] [place] [address] Referral ID Status Reason Start Date Expiration Date V isits Requested Visits Authorized [id number] Closed Consult, Test & Treat 07/02/2022 07/02/2023 1 1 Encounter Details Date Type Department Care Team (Latest Contact Info) Description 09/25/2022 10:00 AM EDT Procedure visit Dermatology at [facility] [address] [place] [address] Jung Arita MD [facility] DR [facility] [place] [address] 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 Social History Tobacco Use Types Packs/Day Years Used Date Smoking Tobacco: Never Assessed Sex and Gender Information Value Date Recorded Sex Assigned at Not on file Gender Identity Not on file Sexual Orientation Not on file documented as of this encounter Last Filed Vital Signs Vital Sign Reading Time Taken Comments Blood Pressure 131/72 09/25/2022 1:08 PM EDT Pulse 81 09/25/2022 1:08 PM EDT Temperature - - Respiratory Rate - - Oxygen Saturation - - Inhaled Oxygen Concentration - - Weight - - Height - - Body Mass Index - - documented in this encounter Progress Notes * Jung Arita MD - 09/25/2022 10:00 AM EDT Images from the original note were not included. Summary of Procedure(s): Site: left malar cheek Tumor Type: Squamous Cell Carcinoma, invasive and well differentiated Stages to clear tumor: 2 Repair: advancement flap Images: The patient was asked to call with any issues and is aware that I am available 16/06 should questions arise. Jung Arita MD PhD Mohs Micrographic Surgery and Dermatologic Oncology Department of Dermatology Please note that I have reviewed the preoperative checklist from today's nursing visit including relevant social history and medications. I have reviewed the preoperative photos if available and the biopsy report. VITAL SIGNS: BP 131/72 (BP Location (NBP): Right arm, Patient Position: Sitting, BP Cuff Sizes: Large Adult (32-43 cm)) Pulse 81 PHYSICAL EXAMINATION: General: patient is awake, alert, oriented and in no acute distress. Skin: Focused examination of surgical site(s) performed which shows a well healed biopsy site with poorly defined surrounding erythema and induration. PHYSICIAN REVIEW OF REPORTS, RECORDS, IMAGES: 1) The accompanying pathology report(s) associated with aforementioned biopsy slide(s) were/was also reviewed. Assessment: Lucero Arthur is a 72 y.o. female presenting for: 1. Biopsy-proven squamous cell carcinoma, invasive, well differentiated location on the left malar cheek.. Plan: 1. Findings from the biopsy report, today's clinical exam, and other pertinent details were reviewed with patient today. All questions were answered. 2. Discussed treatment options based on the above findings. We recommended Mohs micrographic surgery for treatment of this tumor. Mohs micrographic surgery was indicated due to patient, site and/or tumor characteristics (see operative report for specific indication). 3. We discussed risks, benefits, and alternative treatment options to the Mohs micrographic surgeryprocedure and pertinent information including but not limited to the following: ?? Risks include bleeding, infection, scar, recurrence, incomplete tumor removal or inability to cure with surgery alone if the tumor features are more aggressive than the initial pathology indicates. Occasionally, additional adjuvant treatments may be recommended. Additional risks include large wound, prolonged wound and healing, pain, swelling, bruising, increased appearance of vessels or worsening erythema of baseline skin; more rarely risks include damage to underlying structures such as nerves, cartilage, or muscle which could lead to temporary or permanent loss of sensation or motor function. ?? Benefit is precise tumor removal ?? If reconstruction is performed, it is specific to the patient and defect. ?? Discussed that the shape, size, depth of the wound is often not known until the tumor is clearedand thus the reconstruction options are sometimes not known until after tumor clearance. Occasionally, referrals to other providers may be recommended for reconstruction based on patient preference and need. ?? Reviewed the pros and cons of common reconstructions used for this tumor type, size, and location, and that reconstruction may lead to change in appearance. ?? Natural history of scar was discussed, including that the scar will continue to mature for 1-2 years. Recommended avoidance of special ointments or scar creams, and avoidance of direct sun exposure to the scar for optimal recovery. ?? Reviewed that there are some aspects of cosmesis that are dependent on patient's characteristicssuch as age, skin laxity/texture factors, inflammatory skin diseases such as rosacea, prior surgery/radiation, degree of actinic damage, smoking status, strength of the patient's immune system, diligent wound care, medications, and genetics. ?? Having Mohs surgery may lead to physical limitations for optimal healing, such as restricted physical activity and heavy lifting. 4. Signs and symptoms of skin cancer reviewed. Patient to report any new, changing, or symptomatic lesions and follow up with his or her java software engineer or other skin provider. 5. Discussed avoiding direct sun exposure to scars for best cosmetic result. Note initiated by JANE Hagen LPN has performed the documentation for this encounter in the presence of and acting as a scribe for Dr. Arita I performed the above scribed service and agree with the accuracy of the documentation in this encounter. Reviewed and signed by: Jung Arita Dermatology [facility] * Jung Arita MD - 09/25/2022 10:00 AM EDT Mohs micrographic Surgery Operative Report Patient name: Lucero Arthur : 1950 Date: 09/25/2022 Staff Surgeon and Pathologist: Jung Arita MD PhD Nursing/Electrical Logger(s): Jaqui Love RN, Iliana Henry RN, Eneida Mccoy [facility], Maureen Ortizegand-Tay ACID POLYMERIZATION OPERATOR, Rob Duran [facility], Areli Hernandez [facility], Bonnie Ghotra [facility], Jenny COHEN Breakfast Server (s): Barbra Chapman, Rob Duran CMA Pre-operative diagnosis: Squamous Cell Carcinoma Post-operative diagnosis: same Location/Site: left malar cheek Procedure: Mohs micrographic surgery Indication(s) for Mohs micrographic surgery: Anatomic location for tissue conservation Stages: 2 Preoperative size of tumor: 1.0 x 1.2 cm Stage I The nature and purpose of the procedure, associated risks, possible consequences and complications,and alternative forms of treatment were explained in detail. We reviewed the possible repairs basedon the clinical appearance of tumor but discussed that often the repair options may not be known until the tumor has silvia extirpated. Informed consent and permission to take photographs were obtained. The site was confirmed with the patient/authorized logistics service representative/referring physician and/or a photograph form time of biopsy. A pre-operative time-out (procedural pause) was conducted with no unresolved discrepancies noted. Local anesthesia was obtained with 0.5 % lidocaine with 1:200,000 epinephrine. The surgical site was prepped and draped in the usual sterile manner. A 1-2 mm margin was excised around clinically evident tumor as a complete layer. Hemostasis was achieved by electrocoagulation. The excised tissue was oriented and divided into 2 sections, chromacoded, and submitted for frozen sections. The patient tolerated the procedure well and without complications. On my personal microscopic evaluation of the frozen sections, residual tumor was identified as MODERATELY-DIFFERENTIATED INVASIVE SQUAMOUS CELL CARCINOMA -- Arising from the epidermis is a proliferation of atypical keratinocytes with mitoses. There is invasion of the atypical keratinocytes into thedermis. There are both areas of the tumor producing keratin and those that are less differentiated. on section A2 (see section number on map). Stage II The surgical site was re-anesthetized with 0.5 % lidocaine with 1:200,000 epinephrine, re-prepped and redraped in a sterile manner. The residual tumor was re-excised as a complete layer 2-3mm in thickness using the Mohs map to delineate area of residual tumor. Hemostasis was achieved with electrocoa gulation. The tissue was oriented and divided into 1 sections, chromacoded, and submitted for frozen sections. The patient tolerated the procedure well and without complications. On my personal microscopic evaluation of the frozen sections, no residual tumor was identified on the deep or outer border of the sections. Depth of excision subcutaneous tissue Final defect size: 2.2 x 1.8 cm Jung Arita MD PhD Mohs Micrographic Surgery and Dermatologic Oncology Department of Dermatology [address] [place], [place] [id number] Repair Report (Flap) Patient name: Makawaopia Arthur Staff Surgeon: Jung Arita MD PhD Radio Division Officer(s): same as above assistant professor in family studies: Gisella Timmons MD Date: 09/25/2022 Clinical Diagnosis: skin and soft tissue defect status post Mohs micrographic surgery Location/Site: Left malar cheek Indication: repair of wound with evangelical of anatomy/function Defect size to be repaired: 2.2 x 1.8 cm Procedure: Advancement flap repair (tissue rearrangement) Final flap size: 4 x 3 cm 2 Procedure Details: Due to the size and location of the defect resulting from the complete removal of the tumor, the postoperative risk of hemorrhage, infection, and the possibility of serious deformity from scarring, and in order to restore proper function and prevent loss of function, the defect was closed with a flap. The nature and purpose of the procedure, associated risks, possible consequences, complications andalternative methods of treatment were explained to the patient in detail. An informed consent was obtained. Local anesthesia was obtained with a solution of 0.5 % lidocaine with 1:200,000 epinephrine. The surgical site was prepped and draped in the usual sterile manner. Any beveled edges of the defect were repaired with a scalpel blade. The flap was created by making incisions along left malar cheek and tear trough. The flap and the wound edges were undermined, and hemostasis was obtained with electrocoagulation. The flap was advanced onto the defect. The skin edges were closed using 4.0 Monocryl dermal/subcutaneous sutures and 5.0 and 6.0 fast gut skin sutures. Final flap size: 4 x 3 cm2. Estimated blood loss: Minimal. Complications: None. Wound care: Routine. Follow up: As needed. The patient was discharged in good condition. Total anesthesia used today of 0.5 % lidocaine with 1:200,000 epinephrine: 17.5 cc Preoperative Medications: None Post-operative medications: none Jung Arita MD PhD Mohs Micrographic Surgery and Dermatologic Oncology Department of Dermatology [address] [place] [address] Note initiated by Bonnie Ghotra LPN. Bonnie Ghotra LPN has performed the documentation for this encounter in the presence of and acting as a scribe for Dr. Arita I performed the above scribed service and agree with the accuracy of the documentation in this encounter. Reviewed and signed by: Jung Arita Dermatology [facility] * Jung Arita MD - 09/25/2022 10:00 AM EDT Frozen Biopsy Procedure: Skin biopsy by excisional technique Location: right dorsal hand Discussed indications for procedure and expectations including risks and benefits. Verbal consent obtained. Skin prep with alcohol. Local anesthesia with 1% xylocaine, 1/100,000 epinephrine. A sampleof the lesion was removed by excisional technique to the level of the dermis and submitted for frozen sections and revealed orthokeratosis wit thickened underlying epidermis, no parakeratosis, cellular atypia, no evidence of maligancy. Hemostasis obtained (AlCl and/or electrocautery). The site was closed with 4.0 monocryl and 5.0 fast absorbing gut skin sutures. There were no complications; the pt. tolerated the procedure well. Jung Arita MD PhD Mohs Micrographic Surgery and Dermatologic Oncology Department of Dermatology [address] [place], [place] [id number] documented in this encounter Plan of Treatment Upcoming Encounters Date Type Department Care Team (Late st Contact Info) Description 11/04/2024 11:15 AM EST Appointment Non-Invasive Cardiology Lab [place] [address] 11/10/2024 8:00 AM EST Office Visit Neurology at [place] [address] Clarisse Duke APRN [facility] [place] [address] 11/15/2024 10:[address] Scan at [place] [address] Karli Morales MD [facility] [place] [address] 11/15/2024 11:20 AM EST Office Visit Neurosurgery at [place] [address] Marvin Kimball PA [facility] [place] [address] 12/15/2024 4:40 PM EST TH Visit (TeleHealth) Cardiology at [address] Duane Causey MD [facility] [place] [address] Scheduled Referrals Name Type Priority Associated Diagnoses Order Schedule Referral to Dermatology Outpatient Referral Routine Squamous cell carcinoma of cheek Ordered: 07/02/2022 documented as of this encounter Visit Diagnoses Diagnosis 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
--- OUTSIDE RECORDS SUMMARY | 2024-10-20 17:32 | XMS_ITS | Encounter Summary ---
Author Organization [facility] Address [facility] [place] [address] Care Team Providers Care Heating And Air Conditioning Mechanic Name Role Phone Dorita Zimmerman RICHARD Primary Care Provider [phone] Reason for Referral * Consultation (Routine) - Closed Specialty Diagnoses / Procedures Referred By Contxiang beckwith Referred To Contact Dermatology Diagnoses Squamous cell carcinoma of cheek Rosalinda Rodarte MD [facility] [place] [address] [facility] [address] [place] [address] Referral ID Status Reason Start Date Expiration Date V isits Requested Visits Authorized [id number] Closed Consult, Test & Treat 07/02/2022 07/02/2023 1 1 Encounter Details Date Type Department Care Team (Late st Contact Info) Description 07/02/2022 Telephone Dermatology at [facility] [address] [place] [address] Rosalinda Rodarte MD [facility] [place] [address] Social History Tobacco Use Types Packs/Day Years Used Date Smoking Tobacco: Never Assessed Sex and Gender Information Value Date Recorded Sex Assigned at Not on file Gender Identity Not on file Sexual Orientation Not on file documented as of this encounter Miscellaneous Notes * Telephone Encounter - Rosalinda Davis MD - 07/02/2022 8:51 AM EDT Called pt to discuss biopsy results below. Sent to . Left detailed message explaining results andrecommending Mohs surgery and FSE as discussed at her visit. Left callback number asking her to call back and confirm receipt of message. Will place referral. DIAGNOSIS A. Left malar cheek, skin shave biopsy: - ??Invasive well-differentiated squamous cell carcinoma, densely inflamed with ??neutrophilic microabscesses, present at the peripheral and deep specimen edges documented in this encounter Plan of Treatment Upcoming Encounters Date Type Department Care Team (Late st Contact Info) Description 11/04/2024 11:15 AM EST Appointment Non-Invasive Cardiology Lab [place] [address] 11/10/2024 8:00 AM EST Office Visit Neurology at [place] [address] Clarisse Duke APRN [facility] [place] [address] 11/15/2024 10:[address] Scan at [place] [address] Karli Morales MD [facility] [place] [address] 11/15/2024 11:20 AM EST Office Visit Neurosurgery at [place] [address] Marvin Kimball PA [facility] [place] [address] 12/15/2024 4:40 PM EST TH Visit (TeleHealth) Cardiology at [place] [address] Duane Causey MD [facility] DR [facility] [address] Scheduled Referrals Name Type Priority Associated Diagnoses Order Schedule Referral to Dermatology Outpatient Referral Routine Squamous cell carcinoma of cheek Ordered: 07/02/2022 documented as of this encounter Visit Diagnoses Diagnosis Squamous cell carcinoma of cheek Malignant neoplasm of head, face, and neck documented in this encounter Care Teams Heating And Air Conditioning Mechanic Relationship Specialty Start Date End Date Dorita Zimmerman, WASHING MACHINE STRIPER PCP - General Family Medicine 04/27/22 09/08/24 documented as of this encounter
--- OUTSIDE RECORDS SUMMARY | 2024-10-20 17:32 | XMS_ITS | Encounter Summary ---
[place] [address] Care Team Providers Care Body Painter Name Role Phone Dorita Zimmerman APRN Primary Care Provider [phone] Reason for Referral * Consultation (Routine) - Closed Specialty Diagnoses / Procedures Referred By Aicha beckwith Referred To Contact Endocrinology Diagnoses Adrenal adenoma, unspecified laterality Osteoporosis, unspecified osteoporosis type, unspecified pathological fracture presence Dorita Zimmerman APRN [address] [place] [address] [facility] Endocrinology [address] [place] [id number] Referral ID Status Reason Start Date Expiration Date V isits Requested Visits Authorized [id number] Closed Consult, Test & Treat PCP Updated and/or Approved 08/26/2023 08/25/2024 12 12 Encounter Details Date Type Department Care Team (Latest Contact Info) Description 08/26/2023 Transcribe Orders eDH Incoming Referrals [phone] Dorita Zimmerman APRN [address] [place], [place] [id number] Adrenal adenoma, unspecified laterality; Osteoporosis, unspecified osteoporosis type, unspecified pathological fracture presence Social History Tobacco Use Types Packs/Day Years [...] 11:15 AM EST Appointment Non-Invasive [place] [address] 11/10/2024 8:00 AM EST Office Visit Neurology at [place] [address] Clarisse Duke APRN [facility] [place] [address] 11/15/2024 10:[address] Scan at [place] [address] Karli Morales MD [facility] [place] [address] 11/15/2024 11:20 AM EST Office Visit Neurosurgery at [place] [address] Marvin Kimball PA [facility] [place] [address] 12/15/2024 4:40 PM EST TH Visit (TeleHealth) Cardiology at [place] [address] Duane Causey MD [facility] [place] [address] Scheduled Referrals Name Type Priority Associated Diagnoses Orde r Schedule Referral to Endocrinology Outpatient Referral Routine Adrenal adenoma, unspecified laterality Osteoporosis, unspecified osteoporosis type, unspecified pathological fracture presence Ordered: 08/26/2023 documented as of this encounter Visit Diagnoses Diagnosis Adrenal adenoma, unspecified laterality Osteoporosis, unspecified osteoporosis type, unspecified pathological fracture presence documented in this encounter Care Teams Body Painter Relationship Specialty Start Date End Date Dorita Zimmerman APRN PCP - General Family Medicine 04/27/22 09/08/24 documented as of this encounter
--- OUTSIDE RECORDS SUMMARY | 2024-10-20 17:32 | XMS_ITS | Encounter Summary ---
Author Organization [facility] [place] [address] Care Team Providers Care Mechanical Expert Name Role Phone Dorita Zimmerman RICHARD Primary Care Provider [phone] Encounter Details Date Type Department Care Team (Late st Contact Info) Description 03/03/2024 1:30 PM EDT Clinical Support Same Day at [facility] [place] [address] Social History Tobacco Use Types Packs/Day Years Used Date Smoking Tobacco: Former Cigarettes 973 - 2002 Smokeless Tobacco: Never Tobacco Cessation:Counseling Given: Not Answered Alcohol Use Standard Drinks/Week Comments Never 0 (1 standard drink = 0.6 oz pur e alcohol) [facility] Utilities Answer Date Recorded In [...] a care home (including now)? No 03/03/2024 IPV Inpatient Questions [...] as of this encounter Progress Notes * Gera Alexis, RN - 03/03/2024 1:30 PM EDT PAT questionnaire reviewed with patient while in Pre Admission testing. Pre- operative instruction booklet reviewed. Patient verbalizes a good understanding of all information reviewed. Patient has had general anesthesia previously at another facility without a problem. Pre Surgery Covid screening patient response: No PLAN: Testing: Blood work + T&S Procedure date: 04/23 Madelaine documented in this encounter Plan of Treatment Upcoming Encounters Date Type Department Care Team (Late st Contact Info) Description 11/04/2024 11:15 AM EST Appointment Non[place] [address] 11/10/2024 8:00 AM EST Office [place] [address] Clarisse Duke, RICHARD [facility] [place] [address] 11/15/2024 10:[address] Scan [place] [address] [facility] [place] [address] 11/15/2024 11:20 AM EST Office Visit Neurosurgery at [address] [facility] [place] [address] 12/15/2024 4:40 PM EST TH Visit (TeleHealth) Cardiology at [place] [address] [facility] [place] [address] documented as of this encounter Visit Diagnoses Not on filedocumented in this encounter Care Teams Mechanical Expert Relationship Specialty Start Date End Date Dorita Zimmerman APRN PCP - General Family Medicine 04/27/22 09/08/24 documented as of this encounter
--- OUTSIDE RECORDS SUMMARY | 2024-10-20 17:32 | XMS_ITS | Encounter Summary ---
Author Organization [facility] [place] [address] Care Team Providers Care Mold Closer Name Role Phone MichaelEladia Mercedes RAMOS Primary Care Provider [phone] Encounter Details Date Type Department Care Team (Late st Contact Info) Description 12/31/2018 Ancillary Procedure Radiology Library at [facility] [place] [address] Dorita Zimmerman, RICHARD [address] [place] [address] Social History Tobacco Use Types Packs/Day Years [...] 11:15 AM EST Appointment Non-[place] [address] 11/10/2024 8:00 AM EST [place] [address] Clarisse Duke APRN [facility] [place] [address] 11/15/2024 10:[address] [place] [place] [address] Karli Morales MD [facility] [place] [address] 11/15/2024 11:20 AM EST Office [place] [address] Marvin Kimball PA [facility] [place] [address] 12/15/2024 4:40 PM EST TH Visit (TeleHealth) Cardiology at [address] [address] Duane Causey MD [facility] CARDIOLOGY [place], [place] [phone] documented as of this encounter Procedures Procedure Name Priority Date/Time Associated Diagnosis Comments FILM LIBRARY- STORAGE ONLY DXA IMAGES Routine 12/31/2018 12:00 AM EST documented in this encounter Results * Film Library- Storage Only DXA Images (12/31/2018 12:00 AM EST) Narrative [facility] - 11/18/2023 2:43 PM EST This exam is auto-finalizing. It's purpose is for storage only. Dorita Zimmerman APRN IMG FILM LIBRARY ORD ERABLES [place], [place] documented in this encounter Visit Diagnoses Not on filedocumented in this encounter Care Teams Mold Closer Relationship Specialty Start Date End Date Eladia Rodriguez APRN [address] [place] [address] PCP - General 10/16/10 04/26/22 documented as of this encounter
--- OUTSIDE RECORDS SUMMARY | 2024-10-20 17:32 | XMS_ITS | Encounter Summary ---
Author Organization [facility] [place] [address] Care Team Providers Care Mill Attendant Name Role Phone Dorita Zimmerman RICHARD Primary Care Provider [phone] Encounter Details Date Type Department Care Team (Late st Contact Info) Description 03/07/2004 Orders Only Dermatology at [place] [address] [place] [phone] Irving Knox MD [address], [place] [address] Social History Tobacco Use Types Packs/Day Years Used Date Smoking Tobacco: Never Assessed [facility] Utilities Answer Date Recorded In [...] place to sleep or slept in a alf (including now)? No 03/03/2024 IPV Inpatient Questions [...] 11:15 AM EST Appointment Non-Invasive Cardiology Lab [address] 11/10/2024 8:00 AM EST Office Visit Neurology at [address] Clarisse Duke APRN [facility] [place] [address] 11/15/2024 10:[address] [place] [place] [address] Karli Morales MD [facility] [place] [address] 11/15/2024 11:20 AM EST Office Visit Neurosurgery at [place] [phone] Marvin Kimball, PA [facility] NEUROSURGERY [place] [id number] 12/15/2024 4:40 PM EST TH Visit (TeleHealth) Cardiology at [address] [address] Duane Causey MD [facility] [place] [address] documented as of this encounter Procedures Procedure Name Priority Date/Time Associated Diagnosis Comments SURGICAL PATHOLOGY REPORT Routine 03/07/2004 10:26 PM EDT documented in this encounter Results * Surgical Pathology Report (03/07/2004 10:26 PM EDT) Surgical Pathology Report [id number] ? Location: The signing pathologist has (i) examined the relevant preparation(s) for the specimen(s) and (ii) rendered or confirmed the diagnosis(es). . ?Pathology Surgical Pathology Final Report Clinical Information Specimen Submitted: A - (L) upper eyelid, excision Clinical History: Xanthelasma Gross Description Labeled/Fixativ e: ? Left eyelid, formalin. Qty/Size/Weight : ?Ellipse, 1.8 x 0.8 x 0.2 cm. Tissue Description: ?? Yuan-yellow elliptical skin. Sections/Proces sing: ??The specimen is inked and serially sectioned. ??The ?ends are submitted in (1); the remainder of the ?specimen submitted in (2-3). ?? (T3) ??crh/SNS Microscopic Description Slides reviewed, microscopic description not recorded. Diagnosis Left upper eyelid, excision: ??Aggregates of foamy histiocytes in the dermis consistent with xanthelasma. CR-0 03/08/04 [facility] 03/09/04 Verified by: ? Huber Patel MD ?Dermatopathol ogist ?(Electronic Signature) The attending pathologist whose signature appears on this report has reviewed all diagnostic slides and has edited the gross and/or microscopic portion of the report in rendering the final pathologic diagnosis. [facility] 03/07/2004 10:2 6 PM EDT Irving Knox MD PATHOLOGY/CYTOLOGY O RDERABLES Performing Organization Address City/State/[facility] Co md Phone Number [facility] documented in this encounter Visit Diagnoses Not on filedocumented in this encounter Care Teams Mill Attendant Relationship Specialty Start Date End Date Dorita Zimmerman, MERCHANDISE DIRECTOR PCP - General Family Medicine 04/27/22 09/08/24 documented as of this encounter
--- OUTSIDE RECORDS SUMMARY | 2024-10-20 17:32 | XMS_ITS | Encounter Summary ---
Author Organization [facility] [place] [address] Care Team Providers Care Senior Restaurant Manager Name Role Phone Dorita Zimmerman RICHARD Primary Care Provider [phone] Encounter Details Date Type Department Care Team (Latest Contact Info) Description 03/03/2024 Travel Social History Tobacco Use Types Packs/Day Years Used Date Smoking Tobacco: Former Cigarettes 973 - 2002 Smokeless Tobacco: Never Alcohol Use Standard Drinks/Week Comments Never 0 (1 standard drink = 0.6 oz pur e alcohol) [facility] Utilities Answer Date Recorded In the [...] in a halfway (including now)? No 03/03/2024 IPV Inpatient Questions [...] 11:15 AM EST Appointment Non-Invasive Cardiology Lab [place] [address] 11/10/2024 8:00 AM EST Office Visit Neurology at [place] [address] Clarisse Duke APRN [facility] [place] [address] 11/15/2024 10:[address] Scan at [place] [address] Karli Morales MD [facility] [place] [address] 11/15/2024 11:20 AM EST Office [place] [address] Marvin Kimball PA [facility] [place] [address] 12/15/2024 4:40 PM EST TH Visit (TeleHealth) Cardiology at [address] [address] Duane Causey MD [facility] [place] [address] documented as of this encounter Visit Diagnoses Not on filedocumented in this encounter Care Teams Senior Restaurant Manager Relationship Specialty Start Date End Date Dorita Zimmerman APRN PCP - General Family Medicine 04/27/22 09/08/24 documented as of this encounter
--- OUTSIDE RECORDS SUMMARY | 2024-10-20 17:32 | XMS_ITS | Encounter Summary ---
Author Organization [facility] [place] [address] Care Team Providers Care Biometrics Technician Name Role Phone Dorita Zimmerman APRN Primary Care Provider [phone] Encounter Details Date Type Department Care Team (Latest Contact Info) Description 09/25/2022 9:45 AM EDT Clinical Support Dermatology at [facility] [address] [place] [address] Jung Arita MD 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 Date of : 1950 Today's Date: 09/25/2022 REFERRING PROVIDER: Rosalinda Rodarte MD CC: Mohs micrographic surgery for treatment of [...] you ever had Mohs surgery with Dr. Arita? no Pacemaker/Defibrillator? no Joint replacement or other [...] 11:15 AM EST Appointment Non-Invasive [place] [phone] 11/10/2024 8:00 AM EST Office [place] [address] Clarisse Duke APRN [facility] [place] [address] 11/15/2024 10:[address] [place] [place] [address] Karli Morales MD [facility] [place] [address] 11/15/2024 11:20 AM EST Office [place] [address] Marvin Kimball PA [facility] [address] 12/15/2024 4:40 PM EST TH Visit (TeleHealth) Cardiology at [address] [phone] Duane Causey MD 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
--- OUTSIDE RECORDS SUMMARY | 2024-10-20 17:32 | XMS_ITS | Encounter Summary ---
Author Organization [facility] [place] [address] Care Team Providers Care Crnp Name Role Phone Dorita Zimmerman RICHARD Primary Care Provider [phone] Encounter Details Date Type Department Care Team (Late st Contact Info) Description 11/19/2022 Telephone Dermatology at [facility] [address] [place] [address] Rosalinda Rodarte MD [facility] [address] [place] [address] Social History Tobacco Use Types Packs/Day Years Used Date Smoking Tobacco: Never Assessed Sex and Gender Information Value Date Recorded Sex Assigned at Not on file Gender Identity Not on file Sexual Orientation Not on file documented as of this encounter Miscellaneous Notes * Telephone Encounter - Shima Gaitan - 11/19/2022 9:00 AM EST Patient Lucero Arthur called and statied she had MOHS surgery 09/25 and about a week after she started losing her hair. She would like to know if it has to do with the surgery or medication? Please call her at [phone] and you may leave a detailed message if she does not answer. Thank you, Jennifer documented in this encounter Plan of Treatment Upcoming Encounters Date Type Department Care Team (Late st Contact Info) Description 11/04/2024 11:15 AM EST Appointment Non-Invasive [place] [address] 11/10/2024 8:00 AM EST Office Visit Neurology at [place] [address] Clarisse Duke APRN [facility] [place] [address] 11/15/2024 10:[address] Scan [place] [address] Karli Morales MD [facility] [place] [address] 11/15/2024 11:20 AM EST Office Visit Neurosurgery at [place] [address] Marvin Kimball, PA [facility] [place] [address] 12/15/2024 4:40 PM EST TH Visit (TeleHealth) Cardiology at [place] [address] Duane Causey MD [facility] [place] [address] documented as of this encounter Visit Diagnoses Not on filedocumented in this encounter Care Teams Crnp Relationship Specialty Start Date End Date Dorita Zimmerman APRN PCP - General Family Medicine 04/27/22 09/08/24 documented as of this encounter
--- OUTSIDE RECORDS SUMMARY | 2024-10-20 17:32 | XMS_ITS | Encounter Summary ---
Author Organization [facility] [place] [address] Care Team Providers Care Nursing Home Aide Name Role Phone SohailDorita mccurdy RICHARD Primary Care Provider [phone] Encounter Details Date Type Department Care Team (Latest Contact Info) Description 04/23/2024 7:11 AM EDT - 04/23/2024 2:05 PM EDT Hospital Encounter [place] [id number] Aleah Burkett MD [facility] [place] [address] Postmenopausal bleeding Discharge Disposition: Home Social History Tobacco Use Types Packs/Day Years Used Date Smoking Tobacco: Former Cigarettes 2 23 12 973 - 2002 Smokeless Tobacco: Never Alcohol Use Standard Drinks/Week Comments Never 0 (1 standard drink = 0.6 oz pur e alcohol) [facility] Utilities Answer Date Recorded In the past 12 months has [employer], gas, oil, or water [employer] threatened to shut off services in your [...] in a penitentiary (including now)? No 03/03/2024 DH IPV Inpatient [...] Sign Reading Time Taken Comments Blood Pressure 149/65 04/23/2024 1:15 PM EDT Pulse 82 04/23/2024 1:15 PM EDT Temperature 36.4 ??C (97.5 ??F) 04/23/2024 2:00 PM ED T Respiratory Rate 13 04/23/2024 1:15 PM EDT Oxygen Saturation 96% 04/23/2024 1:15 PM EDT Inhaled Oxygen Concentration - - Weight 83.9 kg (185 lb) 04/23/2024 7:39 AM EDT Height 152.4 cm (5') 04/23/2024 7:39 AM EDT Body Mass Index 36.13 04/23/2024 7:39 AM EDT documented in this encounter Discharge Instructions * Patient Instructions* Rock Wilkerson MD - 04/23/2024 7:16 AM EDT PATIENT DISCHARGE INSTRUCTIONS Gynecologic Oncology phone number: [phone] (Nurse ext 4 then 4; appointment ext 1 then 4). After hours and on weekends please call hospital reverse unit operator at [phone] and ask for Gynecologic Oncologist specialty finishing utility person. Call your doctor if you develop: --A [...] Center 05/24/2024 10:00 AM Aleah Burkett MD [facility] JUNIOR ENGINEER 3K [facility] -- Please restart apixaban on tomorrow night, [...] adrenal nodule- currently undergoing work up with [facility] endocrinology 7. Hx of SCC of face [...] SCDs, 5000U heparin Patient's preferred pharmacy is [facility] in [place], [place]. ORT and opioid consent completed today. [...] Burkett MD - 04/23/2024 9:13 AM EDT [facility] Operative Note Patient Name: Lucero Arthur : [id number] MR#: [id number] Case Date: 04/23/2024 Surgeon: Surgeons and Role: [...] Collection Info Order Time SPECIMEN TO PATHOLOGY [id number] Please freeze endometerium PMB Uterus,cervix,bilateral tubes and [...] was previously seen by Dr. Rosario at [facility] for PMB for 3 years. She [...] 5mg daily without resolution, but bleeding was cooker sulfate. Follow up ultrasound in 08/2023 demonstrated a [...] 11:15 AM EST Appointment Non-Invasive [place] [phone] 11/10/2024 8:00 AM EST Office [place] [phone] Clarisse Duke APRN [facility] [place] [place] [address] 11/15/2024 10:[address] [place] [address] Karli Morales MD [facility] [place] [place] [address] 11/15/2024 11:20 AM EST Office [place] [phone] Marvin Kimball PA [facility] [place] [address] 12/15/2024 4:40 PM EST TH Visit (TeleHealth) Cardiology at [address] [phone] Duane Causey MD [facility] [place] [address] documented as of this encounter Procedures Procedure Name Priority Date/Time Associated Diagnosis Comments SURGICAL PATHOLOGY REPORT Routine 04/23/2024 10:15 AM EDT SPECIMEN TO PATHOLOGY STAT 04/23/2024 10:15 AM EDT Laparoscopy W Tot Hysterectuterus <=250 Gram W Tube/Ovary ([id number]) Yes 04/23/2024 8:35 AM EDT PMB POCT GLUCOSE Routine 04/23/2024 7:45 AM EDT documented in this encounter Results * Surgical Pathology Report (04/23/2024 10:15 AM EDT) Final Diagnosis [id number] ? Location: [facility]; The signing pathologist has (i) examined [...] tubes with paratubal cysts. Electronically signed by: ?Kymberly Keller DO Verified: ??04/29/2024 11:07 ??Pathologist Performed at: ??-[facility] Dept. of Pathology, [place] [address] Dinkey Brakeman: June Gilman MD, AP, ??CLIA Certificate: [id number] SPECIMEN(S) SUBMITTED A - Uterus, cervix, bilateral [...] is submitted for frozen section: FS #1. Conservation Or Heritage Architect sections in 11 cassettes as follows: ?A1: ??Remnants of the frozen ?A2: ??Anterior cervix ?A3: ??Posterior cervix ?A4: ??Additional representatives of the intramural nodule in the posterior wall . SPECIMEN PROCESSING ?A5: ??Left ovary, public relations representative section ?A6: ??Left suspected fallopian tube remnants ?A7: ??Right ovary, public relations representative ?A8-A9: ??Right fimbria, longitudinal sections, entirely submitted ?A10: ??Right fallopian tube, cross-sections, public relations representative ?A11: ??Full-thickness, anterior wall ??AOO ?Frozen Section FROZEN SECTION DIAGNOSIS AFS - Uterus, cervix, bilateral tubes and ovaries, biopsy (1) ? for frozen section: Endometrium: Benign inactive endometrium, small submucosal leiomyoma 04/23/24 10:44 Electronically signed by: ?Derrick GAMBOA, Georgette Henriquez Verified: ??04/23/2024 10:47 ??Pathologist Performed at: ??-[facility] Dept. of Pathology, [place] [address] Dinkey Brakeman: June Gilman MD, FCAP, ??CLIA Certificate: [id number] This intraoperative consultation should be interpreted as a preliminary diagnosis pending review of the entire specimen and special studies, if any. A final Surgical Pathology report will follow this preliminary Frozen Section report(s). 04/29/2024 11:07 AM EDT [facility] Uterine Corpus 04/23/2024 10 :15 AM EDT 04/23/2024 10:15 AM EDT Aleah Burkett MD PATHOLOGY/CYTOLOGY ORDERABLES Performing Organization Address [facility] Co de Phone Number [facility] [place] [phone] * Specimen to Pathology (04/23/2024 10:15 AM EDT) AP Specimen 04/23/2024 10:1 5 AM EDT 04/23/2024 10:15 AM EDT Narrative [facility] - 04/23/2024 10:15 AM EDT Specimen requisition ordered. ??Separate Pathology report to follow Aleah Burkett MD PATHOLOGY/CYTOLOGY ORDERABLES Performing Organization Address [facility] Co de Phone Number [facility] [place] [address] * POCT Glucose (04/23/2024 7:45 AM EDT) Glucose, POC 120 65 - 199 mg/dL [facility] Comment: Supplemental ranges: <140 mg/dL before meals <180 mg/dL all other times of the day Blood 04/23/2024 7:45 AM EDT 04/23/2024 7:45 AM EDT Aleah Burkett MD POINT OF CARE TEST ORDERABLES [facility] [place] [address] documented in this encounter Visit Diagnoses Diagnosis Postmenopausal bleeding documented in this encounter Administered Medications Inactive [...] Given 04/23/2024 8:07 AM EDT 975 mg fentaNYL (pf) (50 mcg/mL) multi-dose injection 25 [...] ordered pain medications are indicated. , Routine 806 (Given - Provid er: Stephanie Kelly RN) ceFAZolin (Ancef) 2 g vial attach to sodium chloride 0.9% 100 mL Mini-Bag Plus (COMPLETED)(Linked Group 1) 2 g, Intravenous, ONCE, 1 dose, On Fri04/23/24 at 0815, Administer over 30 Minutes, Lamination Operator to OR Infuse over 30 minutes., Day of Surgery (Day of Procedure), Indication for (Active or Suspected): Prophylaxis 0900 (New Bag - Prov ider: Dayana Peña CRNA) heparin (porcine) (5,000 units/1 mL) subcutaneous injection 5,000 Units (COMPLETED) 5,000 Units, Subcutaneous, ONCE, 1 dose, On Fri04/23/24 at 0815, Day of Surgery (Day of Procedure), Routine 806 (Given - Provid er: Stephanie Kelly RN) metroNIDAZOLE (Flagyl) 500 mg in sodium chloride 0.9% 100 mL infusion (COMPLETED)(Linked Group 1) 500 mg, Intravenous, ONCE, 1 dose, On Fri04/23/24 at 0815, Administer over 30 Minutes, Lamination Operator to OR Infuse over 30 minutes., Day [...] Fri04/23/24 at 0815, Administer over 30 Minutes, Lamination Operator to OR Infuse over 30 minutes., Day of Surgery (Day of Procedure), Indication for (Active or Suspected): Prophylaxis And metroNIDAZOLE (Flagyl) 500 mg in sodium chloride 0.9% 100 mL infusion (COMPLETED)Jump to med 500 mg, Intravenous, ONCE, 1 dose, On Fri04/23/24 at 0815, Administer over 30 Minutes, Lamination Operator to OR Infuse over 30 minutes., Day [...] Routine documented in this encounter Care Teams Nursing Home Aide Relationship Specialty Start Date End Date Dorita Zimmerman, CHIEF LOCK OPERATOR PCP - General Family Medicine 04/27/22 09/08/24 documented as of this encounter
--- OUTSIDE RECORDS SUMMARY | 2024-10-20 17:32 | XMS_ITS | Encounter Summary ---
Author Organization [facility] [place] [address] Care Team Providers Care Territory Account Manager Name Role Phone SohailDorita mccurdy Yajaira RAMOS Primary Care Provider [phone] Encounter Details Date Type Department Care Team (Latest Contact Info) Description 12/03/2023 Travel Social History Tobacco Use Types Packs/Day [...] 11:15 AM EST Appointment Non-[place] [address] 11/10/2024 8:00 AM EST Office [place] [address] Clarisse Duke APRN [facility] [place] [address] 11/15/2024 10:[address] [place] [phone] Karli Morales MD [facility] [place] [address] 11/15/2024 11:20 AM EST Office [place] [address] Marvin Kimball PA [facility] [place] [address] 12/15/2024 4:40 PM EST TH Visit (TeleHealth) Cardiology at [address] [phone] Duane Causey MD [facility] [address] documented as of this encounter Visit Diagnoses Not on filedocumented in this encounter Care Teams Territory Account Manager Relationship Specialty Start Date End Date Dorita Zimmerman, RICHARD PCP - General Family Medicine 04/27/22 09/08/24 documented as of this encounter
== END 2024-10-20 17:14 | disposition home or self-care (01) ==
LOC: LBN 17:13
PROVIDERS: PCP Nurse Practitioner Family; Visit Provider Family Medicine
DX: I48.19 Other persistent atrial fibrillation (principal)
CPT/HCPCS: 80048; 85025

== ENCOUNTER 2024-12-16 22:16 | Outpatient (REF) | payer MEDICARE, MEDICAID, SELFPAY ==
[2024-12-16 16:21] LABS: Bilirubin Negative (Negative); Blood Negative (Negative); Clarity Clear (Clear); Glucose Negative (Negative); Ketones Negative (Negative); Leukocyte Esterase Negative (Negative); Nitrite Negative (Negative); Urobilinogen 0.2 mg/dL (Up to 0.2); pH 6.5 (5-8)
== END 2024-12-16 22:17 | disposition home or self-care (01) ==
LOC: LBN 22:16
PROVIDERS: PCP Nurse Practitioner Family; Visit Provider Family Medicine Geriatric Medicine
DX: N39.0 Urinary tract infection, site not specified (principal)
CPT/HCPCS: 81003

== ENCOUNTER 2025-03-09 10:04 | Emergency (ER) | payer MEDICARE, MEDICAID, SELFPAY ==
[2025-03-09] VITALS (25 sets, daily range): BP systolic 121–167; BP diastolic 50–81; PULSE 67–100; RESP 13–23; TEMP 36.6–36.8; O2SAT 83–96
--- NOTE | 2025-03-09 09:45 | RT.EKG_ITS ---
APPROVED REPORT Exam: Resting ECG Reason for Exam: chest pain, sob Patient Location: E HR:82 bpm ECG Measurements Heart Rate 82 AXIS MT 175 P 28 QRSd 71 QRS -33 QT 367 T 33 QTc 430 Conclusion Sinus rhythm...normal P axis, V-rate 60- 99 Left axis deviation...QRS axis (-30,-90) Low voltage, precordial leads...precordial leads <1.0mV Consider anterior infarct...Q >30mS in V2-V5
--- NOTE | 2025-03-09 10:15 | DI.RAD_ITS ---
Exam(s) XR CHEST 2V PA LATERAL EXAM: XR CHEST 2V PA LATERAL CLINICAL HISTORY: Chest pain. TECHNIQUE: 2D digital imaging was performed. COMPARISON: CR XR CHEST 2V PA LATERAL from 09/07/2024 FINDINGS: 2 views: There is artifact over the left side of the heart Heart size upper normal. The mediastinum is not widened. Lungs are clear. No infiltrates nor pleural effusions. No pulmonary edema. IMPRESSION: No obvious acute pulmonary findings. DATA REPOSITORY: RADIATION DOSE DELIVERED:
--- NOTE | 2025-03-09 10:29 | ED.GENADUL_ITS ---
Discharge Plan Disposition Patient Disposition: Home Condition: Good Discharge Details Clinical Impression: GERD (gastroesophageal reflux disease), Chest pain Primary Care Provider: Leila Manjarrez ED Provider: Rosa Maria Botello Home Meds and New Rx's Prescriptions: New omeprazole 40 mg capsule,delayed release(DR/EC) 40 mg PO DAILY Qty: 30 0RF Continued diltiazem HCl 300 mg capsule,extended release 24 hr 300 mg PO QAM cholecalciferol (vitamin D3) 25 mcg (1,000 unit) capsule 50 mcg PO DAILY tramadol 50 mg tablet 50 mg PO BID PRN acetaminophen 500 mg tablet 1,000 mg PO Q6H PRN Discharge Instructions Instructions: Acid reflux and GERD in adults, Chest Pain, Adult ED Additional Instructions: As we discussed, your labs and imaging are reassuring here today. No evidence to suggest heart attack, pneumonia or infectious course. As your symptoms did seem to be relieved with Mylanta and do seem to be worse when you are laying down, I am concerned that this may be an exacerbation of your known GERD. I have prescribed Meprazole which can help with the symptoms you may also use [id number] Lindt to help with more immediate symptom management. I encourage close follow-up with primary care. Referral for palliative care has also been sent as we discussed. If you develop any new or worsening symptoms please seek care urgently once again. Referrals: Leila Manjarrez [Primary Care Provider] - Discharge Data Discharge Date/Time-TO BE ENTERED AT DEPARTURE: 03/09/25 14:19 HPI General Date/Time Provider Initiated Documentation: 03/09/25 10:07 . Limitations to Documentation: no limitations . Information obtained by: patient, family ([facility], signficant other), EMS, RN notes reviewed and old records reviewed . History of Present Illness 75 year old F presents to the emergency department with the chief complaint of chest pain, described as mild, Quality is described as burning, and is localized to the chest. Patient reports no radiation (she reports chronic back pain that is unchanged, not associated with chest discofmort). Patient started experiencing this hour(s) and it has been constant. No relieving factors improve symptom(s), Other factors that worsen symptoms (they report she has had simimlar pain that seems to be exacerbated by laying flat) . Patient notes chest pain and weakness (chronic, associated with CVA last year); denies cough, diaphoresis, fever/chills, headaches, loss of appetite (pain came on after breakfast), malaise, nausea/vomiting, rash and shortness of breath. Patient did receive the following treatments prior to arrival, none Related Data Home Medications ?Medication ?Instructions ?Recorded ?Confirmed cholecalciferol (vitamin D3) 25 50 mcg PO DAILY 11/10/20 06/09/24 mcg (1,000 unit) capsule tramadol 50 mg tablet 50 mg PO BID PRN 09/18/23 06/09/24 acetaminophen 500 mg tablet 1,000 mg PO Q6H PRN 05/05/24 06/09/24 diltiazem HCl 300 mg capsule,24 300 mg PO QAM 06/09/24 06/09/24 hr,extended release omeprazole 40 mg capsule,delayed 40 mg PO DAILY #30 caps 03/09/25 release Previous Rx's ?Medication ?Instructions ?Recorded omeprazole 40 mg capsule,delayed 40 mg PO DAILY #30 caps 03/09/25 release Allergies Allergy/AdvReac Type Severity Reaction Status Date / Time contact metal agent Allergy Unknown Skin Rash Verified 06/09/24 09:27 alendronate sodium AdvReac Intermediate Pt. states Verified 06/09/24 09:27 she got real sick to her stomach and very tired General Stated Complaint: Chest Pain AMANDA: 2 Review of Systems Constitutional Constitutional: Reports as per HPI, Denies chills, Denies fever(s), Denies headache(s) and Denies poor appetite Eyes Eyes: Denies change in vision ENT Ears, Nose, Mouth, and Throat: Denies dizziness and Denies headache(s) Cardiovascular Cardiovascular: Reports as per HPI and Denies dyspnea Respiratory Respiratory: Reports as per HPI, Denies chest congestion, Denies cough, Denies pain on inspiration, Denies pain with cough and Denies dyspnea Gastrointestinal Gastrointestinal: Reports as per HPI, Denies abdominal pain, Denies diarrhea, Denies nausea and Denies vomiting Musculoskeletal Musculoskeletal: Reports as per HPI Integumentary/Breasts Skin/Breast: Reports as per HPI and Denies rash Neurologic Neurologic: Reports as per HPI, Denies dizziness and Denies headache(s) Exam Const General: cooperative, comfortable, no acute distress, well developed and ill appearing chronically (apparent chronic neurologic deficits) Nutritional Appearance: well nourished and overweight Orientation: alert, awake and oriented x3 HENMT Head: normal to inspection Ears: hearing grossly normal bilaterally Mouth: moist mucous membranes Chest Chest: normal inspection of the chest, normal palpation of entire chest wall and no crepitus Resp Effort & Inspection: normal respiratory effort, able to speak in complete sentences and no respiratory distress Auscultation: clear to auscultation bilaterally, no rales, no rhonchi and no wheezes Cardio Rate: regular rate Rhythm: regular rhythm Heart Sounds: S1 normal and S2 normal GI Inspection: normal to inspection, no edema and non-distended Palpation: soft, no guarding, not rigid and nontender Auscultation: normal bowel sounds Skin General skin exam: no rashes or lesions noted Trauma: no lacerations or abrasions Neuro General: patient alert, patient awake and patient oriented x3 Cognition: normal cognition Speech: speech normal Extrem General: normal to inspection, capillary refill normal, no pedal edema and no calf tenderness Course Vital Signs Vital signs: Vital Signs Temperature 36.6 C 03/09/25 10:07 Pulse 80 03/09/25 10:07 Respiratory Rate 14 03/09/25 10:07 Blood Pressure 139/67 03/09/25 10:07 Pulse Oximetry 93 03/09/25 10:07 Temperature 36.6 C 03/09/25 10:07 Temperature Source Tympanic 03/09/25 10:07 Pulse 80 03/09/25 10:07 Respiratory Rate 14 03/09/25 10:07 Blood Pressure 139/67 03/09/25 10:07 Blood Pressure Position Sitting 03/09/25 10:07 Pulse Oximetry 93 03/09/25 10:07 Oxygen Delivery Method Room Air 03/09/25 10:07 Oxygen Flow Rate 0 03/09/25 10:07 Pain Level 7 03/09/25 10:07 Medical Decision Making Patient is a pleasant 75-year-old female past medical history significant for intracranial hemorrhage in April of last year, associated with cerebral amyloid angiopathy, atrial fibrillation, CHRISTOPHER, depression, nephrolithiasis, obesity, GERD, presenting today with chief complaint of chest pain. Patient reports she is not a very good historian and wants to rely more on her caregiver at home who is on their way in. States that she began having this chest pain this morning, unclear if it was associated with food but she does report that this could potentially be associated with her GERD. States that she has had shortness of breath since return home from health and rehab four days ago. She states that she has been working at home with PT to gain ambulation back, has severe, chronic left sided deficits since her CVA last year, no recent change in this. Denies fevers/chills. No URI sxs but states that she has been told to cough more and that she has difficulty doing so. States that she is too weak to mount a good cough but CP is improved after cough. is not able to give us an updated medication list, defers to healthcare customer service but based on neurology note, is on ASA. ECG obtained and reviewed by Dr. Bonilla, sinus rhytm with no acute ischemic findings. On exam, paitent appears non-toxic. She is chronically ill appearing, she has signficant neurologic deficits including hemiparesis of the left side of her face. She has weakness in her extremities, prodominantly LUE and LLE. Shereports that these deficits are chronic, associated with her previous CVA, no acute changes. She has no pain with palpation of her chest. Lungs are clear, normal cardiac exam. Patient, while well oriented currently, struggles with past medical inforamtion and details about when this discomfort began. She describes this as GERD discomfort but unclear. Considered ACS. As she has hx of a.fib with increased SOB and CP, and is no longer anticoagulated, considered PE and will obtain d- dimer. More likely, pna given difficulty coughing and history, although no acute illness symptoms reported. Labs are reassuring. No elevation of her troponin x 2. D-dimer within normal limits. Will still obtain a chest x-ray. Significant other is at bedside reports that patient struggles more with laying flat, questioning if this could be associated with her GERD will give Mylanta. Significant other reports that she has been having more difficulty sleeping, does have a history of CHRISTOPHER but no longer wears a CPAP, sounds like is been several years since she last used 1. X-ray without acute abnormality. Patient did feel improved after p.o. Mylanta. Will continue to treat for GERD, she not currently on any medications for this. She did have increased back discomfort but she reports this is typical pain, has been present for kirill past year without advancement or change. She and signifcant other report that this is exacerbated with positioning and certain beds- they believe it is associated with where she is laying. We did reposition with improvement. The chronicity of this discomfort suggests that it is not linked with her CP, unlikely to be dissection. Intact peripheral pulses. Treating patient for GERD. Return precautions discussed. Encouraged close f/u with PCP. All of her questions and concerns were addressed, they are in agreeme nt with this plan. She was transported back home via wheelchair van. Quality:[facility] Health Related Social Needs: No Data to Display PFSH All Active Problems (Updated 03/09/25 @ 12:51 by ADRIANA Hicks) Chest pain (Acute) GERD (gastroesophageal reflux disease) (Chronic) Cerebral amyloid angiopathy (Acute) ICH (intracerebral hemorrhage) (Acute) De Quervain's tenosynovitis, right (Acute) Injection: 03/29/2024 Adrenal tumor (Acute) Essential tremor (Acute) Uterine fibroid (Acute) Pre-operative laboratory examination (Acute) Thickened endometrium (Acute) Postmenopausal bleeding (Acute) Postmenopausal bleeding with thickened endometrium. Benign endometrial sampling. Would recommend progestational agent for 3 months and reevaluate with ultrasound. 12/2022. Hysteroscopy with dilation curettage performed. Benign pathology. Continue at this point on Aygestin 5 mg daily. Follow-up 09/15. U/S with ?2 cm endometrium, though may be fibroid. Will D/C progesterone and repeat U/S 11/2023 Shortness of breath (Acute) Sleep apnea, obstructive (Chronic) Heart palpitations (Acute) Hypomagnesemia (Acute) Acute dyspnea (Acute) Prediabetes (Acute) Hyperlipidemia (Acute) Functional tremor (Acute) Abnormal mammogram (Acute) Eczema (Acute) Snoring (Acute) Screening for colon cancer (Acute) Medical History Pap smear vag w ASC-US Diverticular disease Osteopenia History of prediabetes Tremor Severe obstructive sleep apnea Abnormal laboratory test result Depressed mood Insomnia Nephrolithiasis, uric acid Squamous cell carcinoma Hair loss Wheezing Exertional shortness of breath Dizziness Right wrist pain Adrenal adenoma Chest pain Hx of adenomatous colonic polyps Low back pain Psoriasis Vaginal Pap smear with ASC-US Obesity GERD (gastroesophageal reflux disease) Vaginal atrophy Paroxysmal atrial fibrillation Pt has postponed cards f/u until the Fall 2016 ( doesnt have respite care for boarders) BMI 36.0-36.9,adult Former smoker Vertigo Impaired fasting glucose Osteoporosis Diverticulosis Granuloma annulare Family History Mother Heart murmur Father Coronary artery disease Heart disease heart attack Sister Heart disease heart attack Brother Heart disease heart attack Social History Smoking/Tobacco Use Status: Former Tobacco Use tobacco type: cigarettes Quit Date: 11/24/02 Pack-years: 60 Tobacco: How many years used: 20 Smoking risk assessment performed?: Yes Alcohol Intake: never Drug use: Never Substance use type: does not use Household members: friend(s) Housing: house Number of Children: 3 number of grandchildren: 3 Pets and animals: Yes Pets and animals: cat(s) and other Details: rabbits What type of physical activity do you participate in: walking Seatbelt use: always Do you feel safe at home: Yes Do you feel safe in your relationship?: Yes
[2025-03-09 10:35] LABS: Abs Immature Grans 0.04 10^3/uL (0.0-0.06); Absolute Basophil Count 0.04 10^3/uL (0.0-0.2); Absolute Eosinophil Count 0.31 10^3/uL (0.0-0.7); Absolute Lymphocyte Count 2.02 10^3/uL (1.2-3.4); Absolute Monocyte Count 0.54 10^3/uL (0.1-0.8); Absolute Neutrophil Count 7.24 10^3/uL (1.2-6.7); Basophils % 0.4 %; HCT 43.7 % (36.0-46.0); HGB 14.4 g/dL (11.2-15.7); Immature Grans % 0.4 %; Lymphocytes % 19.8 %; MCH 29.3 pg (27.0-33.0); MCV 89 fL (80-95); MPV 9.6 fL (8.0-11.0); Monocytes % 5.3 %; Neutrophils % 71.1 %; Platelet Count 335 10^3/uL (130-400); RBC 4.92 10^6/uL (3.93-5.22); RDW 13.2 % (11.7-14.6); RDW-SD 43.1 fL; WBC 10.19 10^3/uL (4.4-10.8)
[2025-03-09 10:53] LABS: ALT 13 U/L (14-59); AST 8 U/L (15-37); Albumin 3.4 g/dL (3.4-5.0); Alkaline Phosphatase 95 U/L (46-116); Anion Gap 7.1 mmol/L (3-11); BUN 12 mg/dL (7-18); Bilirubin, Total 0.4 mg/dL (0.2-1.0); CO2 29.9 mmol/L (21.0-32.0); CREATININE 0.5 mg/dL (0.55-1.02); Calcium 10.1 mg/dL (8.5-10.1); Chloride 107 mmol/L (98-107); Estimated GFR 98.97 (mL/min/1.73m2); Glucose 128 mg/dL (74-106); Magnesium 1.7 mg/dL (1.8-2.4); Potassium 3.4 mmol/L (3.5-5.1); Sodium 144 mmol/L (136-145); Total Protein 6.7 g/dL (6.4-8.2); Troponin I 5 ng/L (<or=51)
[2025-03-09 11:03] LABS: D-Dimer 472 ng/mlFEU (<500)
[2025-03-09 11:42] LABS: Troponin I 8 ng/L (<or=51)
[2025-03-09] MEDS: Mylanta Suspension 30 ML CUP PO (11:53)
[2025-03-09] MEDS: Acetaminophen 500 MG TAB 1000 MG PO (12:26)
== END 2025-03-09 14:19 | disposition home or self-care (01) ==
PROVIDERS: Emergency Provider Physician Assistant; PCP Nurse Practitioner Family
DX: R07.9 Chest pain, unspecified (principal); R11.0 Nausea; K21.9 Gastro-esophageal reflux disease without esophagitis; I48.0 Paroxysmal atrial fibrillation; I69.354 Hemiplegia and hemiparesis following cerebral infarction affecting left non-dominant side; Z87.891 Personal history of nicotine dependence
CPT/HCPCS: 36415; 80053; 93005; 99285; 71046; 83735; 84484; 85025; 85379; 93010; 94667; 99284

== ENCOUNTER 2025-06-09 20:12 | Outpatient (REF) | payer MEDICARE, MEDICAID, SELFPAY ==
[2025-06-13 09:37] LABS: HIV-1/2 Ag & Ab Screen Negative (Negative)
[2025-06-13 09:56] LABS: Hepatitis C Ab w Rflx HCV PCR Negative (Negative)
[2025-06-13 11:29] LABS: Syphilis Serology (RPR) Negative (Negative)
== END 2025-06-09 20:13 | disposition home or self-care (01) ==
LOC: NCHCN 20:12
PROVIDERS: PCP Nurse Practitioner Family; Visit Provider Nurse Practitioner Family
DX: Z20.2 Contact with and (suspected) exposure to infections with a predominantly sexual mode of transmission (principal)
CPT/HCPCS: 86803; 87389; 86592

== ENCOUNTER 2025-06-14 17:13 | Outpatient (REF) | payer MEDICARE, MEDICAID, SELFPAY ==
[2025-06-16 12:11] LABS: Chlamydia Result Negative (Negative); GC Result Negative (Negative)
== END 2025-06-14 17:14 | disposition home or self-care (01) ==
LOC: NCHCN 17:13
PROVIDERS: PCP Nurse Practitioner Family; Visit Provider Nurse Practitioner Family
DX: Z20.2 Contact with and (suspected) exposure to infections with a predominantly sexual mode of transmission (principal)
CPT/HCPCS: 87491; 87591

== ENCOUNTER 2025-08-24 03:25 | Outpatient (CLI) | payer MEDICARE, MEDICAID, SELFPAY ==
--- NOTE | 2025-08-24 | DI.RAD_ITS ---
Exam(s) XR CHEST 2V PA LATERAL EXAM: XR CHEST 2V PA LATERAL CLINICAL HISTORY: URI,R09.89,COUGH,CHEST CONGESTION,H/O CVA,AUSCULATION BREATH SOUNDS LT LUNG TECHNIQUE: 2D digital imaging was performed. Two views. AP and lateral views were performed in a wheelchair peer COMPARISON: CR XR CHEST 2V PA LATERAL from 03/09/2025 FINDINGS: Exam is somewhat limited by overlying abdominal soft tissues. The lateral views are expiratory. HEART: Normal size. Faintly visualized metallic dense in the heart may represent watch min device. Aorta: Not dilated. PULMONARY VASCULATURE: Normal. MEDIASTINUM: Unremarkable. LUNGS: The lungs appear clear on the AP view. PLEURAL SPACE: No pleural effusion or pneumothorax. BONE:Unremarkable for age. SOFT TISSUES: Unremarkable. IMPRESSION: Limited exam due to expiratory changes on the lateral view. No acute abnormality. DATA REPOSITORY: RADIATION DOSE DELIVERED:
== END 2025-08-24 03:45 ==
LOC: DI 03:25
PROVIDERS: PCP Nurse Practitioner Family; Visit Provider Family Medicine
DX: R07.89 Other chest pain (principal)
CPT/HCPCS: 71046